=== PATIENT | female | born 1965 | race Caucasian/White ===

== ENCOUNTER 2022-11-17 11:05 | Outpatient (OUT) | payer OTHER, SELFPAY ==
--- NOTE | 2022-11-17 11:19 | XR_ITS ---
[address] [address] Patient Name: CANELO SINGH MRN: [id number] date: 1965 Sex: F Assigned Patient Location: RAD Current Patient Location: [facility] Accession/Order Number: [id number] Exam Date: 11/17/2022 11:28 Report Date: 11/17/2022 14:19 At the request of: JEFF JNO Procedure: XR hip BI w PEL 1V EXAM: XR hip BI w PEL 1V HISTORY: Unspecified Hip Pain M25.559 COMPARISON: None. TECHNIQUE: 3 views FINDINGS: There is no acute fracture or dislocation. There are no significant degenerative changes. The soft tissues are unremarkable. IMPRESSION: No acute fracture or dislocation. Electronically authenticated by: ANG ZAMBRANO Date: 11/17/2022 14:19
== END 2022-11-17 11:06 | disposition home or self-care (01) ==
LOC: RAD 11:09
PROVIDERS: PCP Family Medicine; Visit Provider Family Medicine
DX: M25.559 Pain in unspecified hip (principal)
CPT/HCPCS: 73523

== ENCOUNTER 2023-02-19 10:24 | Outpatient (OUT) | payer OTHER, SELFPAY ==
[2023-02-19 10:58] LABS: Basophils Absolute Auto 0.1 10^3/uL (0.0-0.1); Basophils Percent Auto 0.9 % (0.2-2.0); Eosinophils Absolute Auto 0.4 10^3/uL (0.0-0.7); Eosinophils Percent Auto 4.7 % (0.9-7.0); Hematocrit 39.8 % (36.0-48.0); Hemoglobin 12.9 g/dL (12.0-16.0); Immature Granulocytes Abs Auto 0.02 10^3/uL (0.00-0.03); Immature Granulocytes Pct Auto 0.3 % (0.0-0.5); Lymphocytes Percent Auto 26.3 % (20.5-60.0); Mean Corpuscular HGB Conc 32.4 g/dL (29.9-35.2); Mean Corpuscular Hemoglobin 30.4 pg (26.7-34.0); Mean Corpuscular Volume 93.9 fL (81.0-99.0); Mean Platelet Volume 9.7 fL (9.5-13.5); Monocytes Absolute Auto 0.5 10^3/uL (0.3-0.8); Neutrophils Absolute Auto 4.7 10^3/uL (1.4-6.5); Neutrophils Percent Auto 61.8 % (43.0-75.0); Platelet Count 319 10^3/uL (150-450); Red Blood Count 4.24 10^6/uL (4.20-5.40); Red Cell Distribution Width 12.3 % (11.0-15.0); White Blood Count 7.7 10^3/uL (4.0-11.0)
[2023-02-19 11:36] LABS: Estimated Average Glucose 146 mg/dL; Glycohemoglobin A1C 6.7 % (4.5-6.2)
[2023-02-19 12:07] LABS: Alanine Aminotransferase 27 U/L (14-59); Albumin Globulin Ratio 1.1; Albumin Level 3.7 g/dL (3.4-5.0); Alkaline Phosphatase 69 U/L (46-116); Anion Gap 10.2; Aspartate Amino Transferase 16 U/L (15-37); BUN Creatinine Ratio 24.1; Bilirubin Total 0.4 mg/dL (0.2-1.0); Calcium 9.3 mg/dL (8.5-10.1); Carbon Dioxide 30.5 mmol/L (21.0-32.0); Chloride 104 mmol/L (98-107); Chol HDL Ratio 2.4; Cholesterol 200 mg/dL (<=200); Estimated GFR (African America >60 (>=60); Estimated GFR (Non-African Ame >60 (>=60); Free T3 2.59 pg/mL (2.18-3.98); Globulin 3.3 g/dL; Glucose 120 mg/dL (74-106); HDL Cholesterol 84 mg/dL (40-60); Potassium 4.7 mmol/L (3.5-5.1); Sodium 140 mmol/L (136-145); Thyroid Stimulating Hormone 2.141 uIU/mL (0.358-3.740); Triglycerides 71 mg/dL (<=150); VLDL CHOLESTEROL 14.2 mg/dL
[2023-02-19 12:41] LABS: Free T4 1.44 ng/dL (0.76-1.46)
== END 2023-02-19 10:25 | disposition home or self-care (01) ==
LOC: LAB 10:27
PROVIDERS: PCP Family Medicine; Visit Provider Family Medicine
DX: E03.9 Hypothyroidism, unspecified (principal); E11.9 Type 2 diabetes mellitus without complications; E78.5 Hyperlipidemia, unspecified; Z79.899 Other long term (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; E55.9 Vitamin D deficiency, unspecified
CPT/HCPCS: 36415; 80053; 80061; 82306; 83036; 84439; 84443; 84481; 85025

== ENCOUNTER 2023-02-22 09:19 | Outpatient (OUT) | payer OTHER, SELFPAY ==
[2023-02-22 10:08] LABS: Erythrocyte Sedimentation Rate 4 mm/hr (<=30)
[2023-02-22 10:29] LABS: Creatine Kinase 69 U/L (26-192)
[2023-02-22 10:40] LABS: C Reactive Protein <0.2 mg/dL (<=1.0)
[2023-02-24 04:07] LABS: Antistreptolysin O Ab 34.8 IU/mL (0.0-200.0); Rheumatoid Factor (RF) 10.7 IU/mL (<14.0)
[2023-02-24 17:07] LABS: Anti-CCP Ab, IgG/IgA 0 units (0-19)
[2023-02-26 08:07] LABS: Antinuclear Antibodies, IFA Negative (.)
== END 2023-02-22 09:20 | disposition home or self-care (01) ==
LOC: LAB 09:20
PROVIDERS: PCP Family Medicine; Visit Provider Family Medicine
DX: R53.83 Other fatigue (principal); M25.50 Pain in unspecified joint; M79.10 Myalgia, unspecified site
CPT/HCPCS: 36415; 82550; 84550; 85652; 86038; 86060; 86140; 86200; 86430; 86431

== ENCOUNTER 2023-06-30 17:36 | Emergency (ER) | payer OTHER, SELFPAY ==
[2023-06-30] VITALS (31 sets, daily range): BP systolic 142–177; BP diastolic 77–113; PULSE 87–113; RESP 10–27; TEMP 36.7; O2SAT 95–96; BMI 45.9
--- NOTE | 2023-06-30 17:50 | XR_ITS ---
The [address] [address] Patient Name: CANELO SINGH MRN: [id number] date: 1965 Sex: F Assigned Patient Location: ER Current Patient Location: ER Accession/Order Number: [id number] Exam Date: 06/30/2023 18:06 Report Date: 06/30/2023 19:29 At the request of: MARCELL ASHLEY Procedure: XR chest 1V ONE-VIEW CHEST RADIOGRAPH, 06/30/2023 6:06 PM EST COMPARISON: Chest, 09/08/2022. CLINICAL HISTORY: sob Findings and impression: 1. Very minimal linear atelectasis or scarring in the right lung base. Lungs otherwise clear. 2. Normal heart size. 3. No acute osseous abnormality. Electronically authenticated by: Lloyd SANDRA Date: 06/30/2023 19:29
--- NOTE | 2023-06-30 17:50 | ECG_ITS ---
The [facility] Test Date: 2023-06-30 Pat Name: CANELO SINGH Department: Room: - Gender: Female Stave And Bolt Equalizer: : 1965 Requested By: JEFF JON Order Number: [id number] Reading MD: JULIANA RUSSO Measurements Intervals [place] Rate: 93 P: 58 [place]: 156 QRS: 52 QRSD: 76 T: 53 QT: 348 QTc: 398 Interpretive Statements 1100 Sinus rhythm 9110 normal ECG Compared to ECG 09/08/2022 15:15:49 No significant changes Electronically Signed On 07-01-2023 7:25:10 EST by JULIANA RUSSO
[2023-06-30 18:03] LABS: Glucometer 118 mg/dL (74-106)
[2023-06-30 18:11] LABS: Basophils Absolute Auto 0.1 10^3/uL (0.0-0.1); Basophils Percent Auto 0.9 % (0.2-2.0); Eosinophils Absolute Auto 0.6 10^3/uL (0.0-0.7); Eosinophils Percent Auto 6.2 % (0.9-7.0); Hematocrit 41.3 % (36.0-48.0); Hemoglobin 13.7 g/dL (12.0-16.0); Immature Granulocytes Abs Auto 0.03 10^3/uL (0.00-0.03); Immature Granulocytes Pct Auto 0.3 % (0.0-0.5); Lymphocytes Absolute Auto 2.6 10^3/uL (1.2-3.8); Lymphocytes Percent Auto 27.5 % (20.5-60.0); Mean Corpuscular HGB Conc 33.2 g/dL (29.9-35.2); Mean Corpuscular Hemoglobin 31.1 pg (26.7-34.0); Mean Corpuscular Volume 93.7 fL (81.0-99.0); Mean Platelet Volume 10.1 fL (9.5-13.5); Monocytes Absolute Auto 0.6 10^3/uL (0.3-0.8); Monocytes Percent Auto 5.9 % (1.7-12.0); Neutrophils Absolute Auto 5.7 10^3/uL (1.4-6.5); Neutrophils Percent Auto 59.2 % (43.0-75.0); Platelet Count 367 10^3/uL (150-450); Red Blood Count 4.41 10^6/uL (4.20-5.40); Red Cell Distribution Width 12.1 % (11.0-15.0); White Blood Count 9.6 10^3/uL (4.0-11.0)
[2023-06-30 18:29] LABS: Alanine Aminotransferase 24 U/L (14-59); Albumin Globulin Ratio 1.1; Albumin Level 3.9 g/dL (3.4-5.0); Alkaline Phosphatase 91 U/L (46-116); Anion Gap 14.2; Aspartate Amino Transferase 18 U/L (15-37); BUN Creatinine Ratio 34.2; Bilirubin Total 0.3 mg/dL (0.2-1.0); Calcium 9.6 mg/dL (8.5-10.1); Carbon Dioxide 28.9 mmol/L (21.0-32.0); Chloride 103 mmol/L (98-107); Estimated GFR (African America >60 (>=60); Estimated GFR (Non-African Ame >60 (>=60); Globulin 3.7 g/dL; Glucose 123 mg/dL (74-106); Potassium 4.1 mmol/L (3.5-5.1); Sodium 142 mmol/L (136-145); Total Protein 7.6 g/dL (6.4-8.2)
[2023-06-30 18:31] LABS: Troponin I High Sensitivity 4.9 pg/mL (4.0-51.3)
--- NOTE | 2023-06-30 18:39 | CT_ITS ---
[address] [address] Patient Name: CANELO SINGH MRN: [id number] date: 1965 Sex: F Assigned Patient Location: ER Current Patient Location: Accession/Order Number: [id number] Exam Date: 06/30/2023 19:15 Report Date: 06/30/2023 20:15 At the request of: MARCELL ASHLEY Procedure: CT angio head CTA HEAD/NECK. HISTORY: headache and pounding sound in the ear COMPARISON: None. TECHNIQUE: CT angiogram of the head and neck obtained after administration of 75 mL of nonionic intravenous contrast material, Isovue-300. Multiplanar and volume rendered 3-D reformats were created. NASCET criteria was used for evaluation of luminal stenosis. 3-D vascular images were constructed on a separate workstation. FINDINGS: THORACIC AORTA: Normal. There is a normal anatomy at the origin of the great vessels. RIGHT COMMON CAROTID ARTERY: No significant stenosis. RIGHT EXTERNAL CAROTID ARTERY: No significant stenosis. RIGHT INTERNAL CAROTID ARTERY: No significant stenosis. LEFT COMMON CAROTID ARTERY: No significant stenosis. LEFT EXTERNAL CAROTID ARTERY: No significant stenosis. LEFT INTERNAL CAROTID ARTERY: No significant stenosis. RIGHT VERTEBRAL ARTERY: No significant stenosis. LEFT VERTEBRAL ARTERY: No significant stenosis. [place] OF CAREY: The bilateral intracranial internal carotid arteries, anterior cerebral arteries, middle cerebral arteries and anterior and posterior communicating arteries are normal. POSTERIOR INTRACRANIAL CIRCULATION: The basilar artery and posterior cerebral arteries are patent, without stenosis or occlusion. DURAL SINUSES: Patent. No intracranial aneurysm measuring least 2 mm identified. No intracranial AVM. LUNG APICES: The lung apices are clear. SOFT TISSUES: The prevertebral soft tissues are normal. No soft tissue inflammation. OSSEOUS STRUCTURES: No acute osseous abnormality throughout the imaged axial skeleton and skull base. CT/CT angio head IMPRESSION: 1. No high-grade or hemodynamically flow-limiting stenosis of the major arteries of the head and neck. 2. No evidence of intracranial aneurysm. Electronically authenticated by: MAR TORRES Date: 06/30/2023 20:15
--- NOTE | 2023-06-30 18:40 | CT_ITS ---
[address] [address] Patient Name: CANELO SINGH MRN: [id number] date: 1965 Sex: F Assigned Patient Location: ER Current Patient Location: Accession/Order Number: [id number] Exam Date: 06/30/2023 19:15 Report Date: 06/30/2023 20:15 At the request of: MARCELL ASHLEY Procedure: CT angio neck CTA HEAD/NECK. HISTORY: headache and pounding sound in the ear COMPARISON: None. TECHNIQUE: CT angiogram of the head and neck obtained after administration of 75 mL of nonionic intravenous contrast material, Isovue-300. Multiplanar and volume rendered 3-D reformats were created. NASCET criteria was used for evaluation of luminal stenosis. 3-D vascular images were constructed on a separate workstation. FINDINGS: THORACIC AORTA: Normal. There is a normal anatomy at the origin of the great vessels. RIGHT COMMON CAROTID ARTERY: No significant stenosis. RIGHT EXTERNAL CAROTID ARTERY: No significant stenosis. RIGHT INTERNAL CAROTID ARTERY: No significant stenosis. LEFT COMMON CAROTID ARTERY: No significant stenosis. LEFT EXTERNAL CAROTID ARTERY: No significant stenosis. LEFT INTERNAL CAROTID ARTERY: No significant stenosis. RIGHT VERTEBRAL ARTERY: No significant stenosis. LEFT VERTEBRAL ARTERY: No significant stenosis. [place] OF CAREY: The bilateral intracranial internal carotid arteries, anterior cerebral arteries, middle cerebral arteries and anterior and posterior communicating arteries are normal. POSTERIOR INTRACRANIAL CIRCULATION: The basilar artery and posterior cerebral arteries are patent, without stenosis or occlusion. DURAL SINUSES: Patent. No intracranial aneurysm measuring least 2 mm identified. No intracranial AVM. LUNG APICES: The lung apices are clear. SOFT TISSUES: The prevertebral soft tissues are normal. No soft tissue inflammation. OSSEOUS STRUCTURES: No acute osseous abnormality throughout the imaged axial skeleton and skull base. CT/CT angio neck IMPRESSION: 1. No high-grade or hemodynamically flow-limiting stenosis of the major arteries of the head and neck. 2. No evidence of intracranial aneurysm. Electronically authenticated by: MAR TORRES Date: 06/30/2023 20:15
--- NOTE | 2023-06-30 18:45 | ED_ITS ---
HPI - General Adult General Chief complaint: Chest Pain Stated complaint: high bp, sob, cold and clammy Time Seen by Provider: 06/30/23 17:44 Source: patient Mode of arrival: walk-in History of Present Illness HPI narrative: The patient coming to the ER was few weeks history of generalized sense of shortness of breath in addition to a frontal headache associated with the right ear swishing noise like her heart pounding, she mentioned that she hear that all the time whenever she is grabbing something from the floor or moving. The patient denies any double vision nausea vomiting any chest pain at any time she also denies any cough or fever Related Data Home Medications Medication Instructions Recorded Confirmed cetirizine 10 mg tablet 10 mg PO Q12H 06/30/23 06/30/23 glimepiride 1 mg tablet mg 06/30/23 levothyroxine 175 mcg tablet 175 mcg PO DAILY 06/30/23 06/30/23 losartan 50 mg tablet 50 mg PO DAILY 06/30/23 06/30/23 metformin 500 mg tablet,extended 500 mg PO .dailiy 06/30/23 06/30/23 release 24 hr Allergies Allergy/AdvReac Type Severity Reaction Status Date / Time clarithromycin [From Biaxin] Allergy Mild Verified 06/30/23 17:40 gatifloxacin [From Tequin] Allergy Mild Verified 06/30/23 17:40 levaquin Allergy Mild Uncoded 06/30/23 17:40 Review of Systems ROS Status of ROS 10 or more systems reviewed and unremark able except as noted in history and below [facility] Social History Smoking status: Never smoker Exam Narrative Exam Narrative: Nurses notes and vital signs reviewed and patient is not hypoxic. General: Well-appearing and in no apparent distress. Skin: Warm, dry, no pallor noted. No rash. Head: Normocephalic, atraumatic. Neck: Supple, non-tender. Eye: Pupils are equal, round and EOMI. No scleral icterus. Ears, Nose, Mouth, and Throat: TM are clear, no nasal mucosal hypertrophy. Oral mucosa is moist, no posterior oropharynx erythema, uvula is mid-line Cardiovascular: Regular Rate and Rhythm without murmur, gallop or rub. Respiratory: No accessory muscle use or respiratory distress. Lungs are clear to auscultation, no wheezing, rales or rhonchi Chest Wall: no tenderness Back: No midline thoracic or lumbar vertebral tenderness. No CVA tenderness Musculoskeletal: normal ROM, no calf or popliteal tenderness, no lower extremity edema/swelling GI: Abdomen is soft, non-distended. Normal bowel sounds. No masses appreciated. No tenderness to palpation. No rebound, guarding, or rigidity noted. Neurological: A&O x4. No cranial nerve dysfunction observed. No truncal ataxia. Moves all extremities. Sensation intact. Psychiatric: Cooperative and interactive. Normal mood and affect. Constitutional Vital Signs, click to edit/add: Last Vital Signs Temp 98.0 F 06/30/23 17:40 Pulse 113 H 06/30/23 17:40 Resp 18 06/30/23 17:40 BP 177/113 H 06/30/23 17:40 Pulse Ox 96 06/30/23 17:40 O2 Del Method Room Air 06/30/23 17:40 Course Vital Signs Vital signs: Vital Signs Temperature 98.0 F 06/30/23 17:40 Pulse Rate 113 H 06/30/23 17:40 Respiratory Rate 18 06/30/23 17:40 Blood Pressure 177/113 H 06/30/23 17:40 Pulse Oximetry 96 06/30/23 17:40 Oxygen Delivery Method Room Air 06/30/23 17:40 Temperature 98.0 F 06/30/23 17:40 Pulse Rate 113 H 06/30/23 17:40 Respiratory Rate 18 06/30/23 17:40 Blood Pressure 177/113 H 06/30/23 17:40 Pulse Oximetry 96 06/30/23 17:40 Oxygen Delivery Method Room Air 06/30/23 17:40 Medical Decision Making [facility] Narrative Medical decision making narrative: The patient right now had a CBC and chemistry showing no acute significant pathology The patient EKG showing sinus rhythm with no acute significant pathology The patient just was started on losartan for her blood pressure yesterday and we will continue that for now CT angio head and neck obtained to rule out any aneurysm because of the patient pulsating sound that she feels in her right ear. The patient care will be transferred to Dr. Weaver with the plan to treat her right ear as possible infection in addition to stopping her metformin as she is going to obtain contrast for the next 48 hours or unless she follow-up with her primary care and repeat the kidney function Lab Data Labs: Lab Results 06/30/23 06/30/23 Range/Units 17:50 17:51 WBC 9.6 (4.0-11.0) 10^3/uL RBC 4.41 (4.20-5.40) 10^6/uL Hgb 13.7 (12.0-16.0) g/dL Hct 41.3 (36.0-48.0) % MCV 93.7 (81.0-99.0) fL MCH 31.1 (26.7-34.0) pg MCHC 33.2 (29.9-35.2) g/dL RDW 12.1 (11.0-15.0) % Plt Count 367 (150-450) 10^3/uL MPV 10.1 (9.5-13.5) fL Neut % (Auto) 59.2 (43.0-75.0) % Lymph % (Auto) 27.5 (20.5-60.0) % [place] % (Auto) 5.9 (1.7-12.0) % Eos % (Auto) 6.2 (0.9-7.0) % Baso % (Auto) 0.9 (0.2-2.0) % Neut # (Auto) 5.7 (1.4-6.5) 10^3/uL Lymph # (Auto) 2.6 (1.2-3.8) 10^3/uL Frederick # (Auto) 0.6 (0.3-0.8) 10^3/uL Eos # (Auto) 0.6 (0.0-0.7) 10^3/uL Baso # (Auto) 0.1 (0.0-0.1) 10^3/uL Abs Immat Gran (auto) 0.03 (0.00-0.03) 10^3/uL Imm/Tot Granulo (auto) 0.3 (0.0-0.5) % Sodium 142 (136-145) mmol/L Potassium 4.1 (3.5-5.1) mmol/L Chloride 103 (98-107) mmol/L Carbon Dioxide 28.9 (21.0-32.0) mmol/L Anion Gap 14.2 BUN 26.0 H (7.0-18.0) mg/dL Creatinine 0.76 (0.55-1.02) mg/dL Est GFR ( Amer) >60 (>=60) Est GFR (Non-Af Amer) >60 (>=60) BUN/Creatinine Ratio 34.2 Glucose 123 H (74-106) mg/dL Calcium 9.6 (8.5-10.1) mg/dL Total Bilirubin 0.3 (0.2-1.0) mg/dL AST 18 (15-37) U/L ALT 24 (14-59) U/L Alkaline Phosphatase 91 (46-116) U/L Troponin I High Sens 4.9 (4.0-51.3) pg/mL Total Protein 7.6 (6.4-8.2) g/dL Albumin 3.9 (3.4-5.0) g/dL Globulin 3.7 g/dL Albumin/Globulin Ratio 1.1 POC Glucose 118 H (74-106) mg/dL Discharge Plan Discharge Patient Disposition: Still a Patient
[2023-06-30] MEDS: KETOROLAC TROMETHAMINE 30 MG/ML VIAL 15 MG IVP (19:23)
[2023-06-30] MEDS: AMOXICILLIN/POTASSIUM CLAV 1 TAB TABLET PO (21:05)
== END 2023-06-30 21:17 | disposition home or self-care (01) ==
PROVIDERS: Emergency Medicine; Emergency Provider Internal Medicine; PCP Family Medicine
DX: H66.91 Otitis media, unspecified, right ear (principal); R51.9 Headache, unspecified; Z79.899 Other long term (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; Z79.84 Long term (current) use of oral hypoglycemic drugs; Z79.890 Hormone replacement therapy
CPT/HCPCS: 36415; 70496; 70498; 71045; 80053; 82948; 84484; 85025; 93005; 96374; 99285; J1885; Q9967

== ENCOUNTER 2023-08-23 12:22 | Outpatient (OUT) | payer OTHER, SELFPAY ==
[2023-08-23 13:03] LABS: Basophils Absolute Auto 0.1 10^3/uL (0.0-0.1); Basophils Percent Auto 1.4 % (0.2-2.0); Eosinophils Absolute Auto 0.4 10^3/uL (0.0-0.7); Eosinophils Percent Auto 5.2 % (0.9-7.0); Hematocrit 41.2 % (36.0-48.0); Hemoglobin 13.6 g/dL (12.0-16.0); Immature Granulocytes Abs Auto 0.02 10^3/uL (0.00-0.03); Immature Granulocytes Pct Auto 0.3 % (0.0-0.5); Lymphocytes Absolute Auto 2.2 10^3/uL (1.2-3.8); Lymphocytes Percent Auto 29.7 % (20.5-60.0); Mean Corpuscular Hemoglobin 31.3 pg (26.7-34.0); Mean Corpuscular Volume 94.7 fL (81.0-99.0); Mean Platelet Volume 9.7 fL (9.5-13.5); Monocytes Absolute Auto 0.5 10^3/uL (0.3-0.8); Monocytes Percent Auto 6.4 % (1.7-12.0); Neutrophils Absolute Auto 4.2 10^3/uL (1.4-6.5); Platelet Count 347 10^3/uL (150-450); Red Blood Count 4.35 10^6/uL (4.20-5.40); Red Cell Distribution Width 12.1 % (11.0-15.0); White Blood Count 7.4 10^3/uL (4.0-11.0)
[2023-08-23 13:23] LABS: Estimated Average Glucose 143 mg/dL; Glycohemoglobin A1C 6.6 % (4.5-6.2)
[2023-08-23 13:36] LABS: Alanine Aminotransferase 25 U/L (14-59); Albumin Globulin Ratio 1.2; Albumin Level 3.8 g/dL (3.4-5.0); Alkaline Phosphatase 72 U/L (46-116); Anion Gap 14.5; Aspartate Amino Transferase 14 U/L (15-37); BUN Creatinine Ratio 24.7; Bilirubin Total 0.5 mg/dL (0.2-1.0); Calcium 9.1 mg/dL (8.5-10.1); Carbon Dioxide 28.7 mmol/L (21.0-32.0); Chloride 103 mmol/L (98-107); Chol HDL Ratio 2.9; Cholesterol 193 mg/dL (<=200); Estimated GFR (African America >60 (>=60); Estimated GFR (Non-African Ame >60 (>=60); Free T3 1.94 pg/mL (2.18-3.98); Globulin 3.3 g/dL; Glucose 117 mg/dL (74-106); HDL Cholesterol 67 mg/dL (40-60); Potassium 4.2 mmol/L (3.5-5.1); Sodium 142 mmol/L (136-145); Thyroid Stimulating Hormone 18.751 uIU/mL (0.358-3.740); Total Protein 7.1 g/dL (6.4-8.2); Triglycerides 125 mg/dL (<=150)
[2023-08-23 13:59] LABS: Bilirubin Urine NEGATIVE (NEGATIVE); Blood Urine NEGATIVE (NEGATIVE); Clarity Urine CLEAR (CLEAR); Color Urine YELLOW (YELLOW); Glucose Urine UA NEGATIVE (NEGATIVE); Ketones Urine NEGATIVE (NEGATIVE); Leukocyte Esterase Urine NEGATIVE (NEGATIVE); Nitrite Urine NEGATIVE (NEGATIVE); Protein Urine NEGATIVE (NEG/TRACE); Specific Gravity Urine >=1.030 (1.005-1.025); Urobilinogen Urine 0.2 EU/dL (0.2-1.0); pH Urine 5.5 (5.0-9.0)
[2023-08-23 14:05] LABS: Free T4 1.11 ng/dL (0.76-1.46)
[2023-08-23 14:45] LABS: Bacteria Urine NONE SEEN #/HPF (NONE SEEN); Cast Seen? NONE SEEN #/LPF (NONE SEEN); Crystals Seen? None Seen #/HPF (None Seen); Mucus Urine MODERATE (NONE SEEN); RBC Urine 0-2 #/HPF (0-2); Squamous Epithelial Cell Urine RARE #/LPF (NONE/RARE); WBC Urine 0-2 #/HPF (NONE SEEN)
== END 2023-08-23 12:23 | disposition home or self-care (01) ==
LOC: LAB 12:25
PROVIDERS: PCP Family Medicine; Visit Provider Family Medicine
DX: E03.9 Hypothyroidism, unspecified (principal); E11.9 Type 2 diabetes mellitus without complications; Z79.899 Other long term (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; E78.5 Hyperlipidemia, unspecified; E55.9 Vitamin D deficiency, unspecified; R35.1 Nocturia
CPT/HCPCS: 36415; 80053; 80061; 81001; 82306; 83036; 84439; 84443; 84481; 85025; 87086

== ENCOUNTER 2023-09-04 12:44 | Outpatient (OUT) | payer OTHER, SELFPAY ==
--- NOTE | 2023-09-04 13:32 | CT_ITS ---
The [address] [address] Patient Name: CANELO SINGH MRN: [id number] date: 1965 Sex: F Assigned Patient Location: CT Current Patient Location: CT Accession/Order Number: [id number] Exam Date: 09/04/2023 13:20 Report Date: 09/04/2023 16:52 At the request of: JENNIE JIANG Procedure: CT int auditory canals w con EXAM: CT int auditory canals w con HISTORY: Pulsatile Tinnitus Of Right Ear H93.A1, Cholesteatoma Ear a COMPARISON: CT brain 08/07/2022 TECHNIQUE: Axial helical CT images of the temporal bones were obtained without contrast. In addition the sagittal and coronal reformats were also obtained. Dose reduction techniques were achieved by using automated exposure control and/or adjustment of mA and/or kV according to patient size and/or use of iterative reconstruction technique. FINDINGS: The study demonstrates normal appearance of the external auditory canals, tympanic membranes, middle ear ossicles, the scutum, the Prussak's space and middle ear cavity. The internal ear structures are also normal in appearance on both sides. There is no suggestion of cochlear or fenestral otosclerosis or dehiscence of the superior semicircular canal. The internal auditory canals are normal and symmetric in size and configuration. The facial nerves demonstrate normal course and caliber. There is mild opacification of right-sided mastoid air cells. The left-sided mastoid air cells are clear. The temporomandibular joints (TMJ) are unremarkable. Visualized brain parenchyma, sinuses, and orbits are unremarkable. CT/CT int auditory canals w con IMPRESSION: Mild chronic right mastoid effusion. Otherwise, unremarkable temporal bone CT. Electronically authenticated by: DOYLE DELGADOU Date: 09/04/2023 16:52
== END 2023-09-04 12:45 | disposition home or self-care (01) ==
LOC: CT 12:44
PROVIDERS: PCP Family Medicine; Visit Provider Otolaryngology
DX: H93.A1 Pulsatile tinnitus, right ear (principal); H71.01 Cholesteatoma of attic, right ear
CPT/HCPCS: 70481; Q9967

== ENCOUNTER 2023-10-09 12:38 | Outpatient (OUT) | payer OTHER, SELFPAY ==
--- NOTE | 2023-10-09 12:44 | MR_ITS ---
The [address] [address] Patient Name: CANELO SINGH MRN: [id number] date: 1965 Sex: F Assigned Patient Location: MRI Current Patient Location: MRI Accession/Order Number: [id number] Exam Date: 10/09/2023 12:50 Report Date: 10/09/2023 21:15 At the request of: JENNIE JIANG Procedure: MR head/brain wo/w con MR head/brain wo/w con, 10/09/2023 12:50 PM EDT INDICATION: Asymmetric Sensorineural Hearing Loss H90.3 right ear tinnitus COMPARISON: Prior CT of the in temporal bone dated 09/04/2023 TECHNIQUE: Multiplanar, multisequential MRI images of brain were obtained without and with injection of contrast. FINDINGS: The cerebral sulci as well as ventricular system are appropriate for age. There is no restricted diffusion. Few hyperintensities on T2 and FLAIR images in the soto radiata and centrum semiovale with sparing of U fibers are nonspecific, statistically most likely consistent with microvascular ischemic changes. There is no intracranial mass, mass effect, midline shift, intra or extra-axial fluid collection or large hemorrhage. No abnormality of the semicircular canal is or cochlea vestibular nerves is noted. No abnormal enhancing lesion is noted. Normal flow-void in the intracranial vessels is noted. Nonspecific fluid within the right mastoid air cells is noted. The visualized portions of orbits, left mastoid air cells as well as paranasal sinuses are unremarkable. MR/MR head/brain wo/w con IMPRESSION: No abnormality of the cochlea vestibular nerves or semicircular canals is noted. Nonspecific fluid within the right mastoid air cells. Electronically authenticated by: CHRISTIANO SETHI Date: 10/09/2023 21:15
== END 2023-10-09 12:39 | disposition home or self-care (01) ==
LOC: MRI 12:38
PROVIDERS: PCP Family Medicine; Visit Provider Otolaryngology
DX: H90.3 Sensorineural hearing loss, bilateral (principal); H92.02 Otalgia, left ear; H93.13 Tinnitus, bilateral
CPT/HCPCS: 70553; A9575

== ENCOUNTER 2023-10-25 10:55 | Outpatient (OUT) | payer OTHER, SELFPAY ==
[2023-10-25 14:54] LABS: Anion Gap 11.7; BUN Creatinine Ratio 20.5; Calcium 9.3 mg/dL (8.5-10.1); Carbon Dioxide 29.7 mmol/L (21.0-32.0); Chloride 103 mmol/L (98-107); Estimated GFR (African America >60 (>=60); Estimated GFR (Non-African Ame >60 (>=60); Glucose 121 mg/dL (74-106); Potassium 4.4 mmol/L (3.5-5.1); Sodium 140 mmol/L (136-145); Thyroid Stimulating Hormone 5.994 uIU/mL (0.358-3.740)
[2023-10-25 15:15] LABS: Free T4 1.33 ng/dL (0.76-1.46)
[2023-10-26 04:08] LABS: Triiodothyronine (T3) 100 ng/dL (71-180)
== END 2023-10-25 10:56 | disposition home or self-care (01) ==
PROVIDERS: PCP Family Medicine; Visit Provider Family Medicine
DX: E03.9 Hypothyroidism, unspecified (principal); Z79.899 Other long term (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
CPT/HCPCS: 36415; 80048; 84439; 84443; 84480

== ENCOUNTER 2024-03-20 09:49 | Outpatient (OUT) | payer OTHER, SELFPAY ==
--- OUTSIDE RECORDS SUMMARY | 2024-03-20 10:00 | XMS_ITS | CCD ---
Author Organization [facility] CliniSypr Care Team Providers Care Chemistry Account Manager Name Role Phone JEFF JON Primary Care Unavailable ELLE DODD Referring Unavailable Jeff Jon DO Primary Care Provider Carlos Terrazas Unavailable Jeff Jon Unavailable Vandana Jordan Unavailable Carl Valdivia Unavailable Lorena Rico Unavailable Jeff Jon DO Primary Care Provider JEFF JON Primary Care Unavailable LEENA SEYMOUR Attending Unavailable JEFF JON Primary Care Unavailable SKUGOR, ASAD Referring Unavailable DONTRELL, JEFF COLEMAN Primary Care Unavailable ANILA JIMENEZ Attending Unavailable DANG, ASAD Attending Unavailable JEFF JON Referring Unavailable JEFF JON Primary Care Unavailable JEFF JON Primary Care Unavailable SKUGOR, ASAD Referring Unavailable SKUGWHIT, ASAD Attending Unavailable JEFF JON Primary Care Unavailable SKUGOR, ASAD Referring Unavailable Lacie Manuel Unavailable DONTRELL, DR AGUILAR Consulting Unavailable DONTRELL, DR AGUILAR Attending Unavailable DONTRELL, DR AGUILAR Admitting Unavailable DONTRELL, DR AGUILAR Primary Care Unavailable DONTRELL, DR AGUILAR Consulting Unavailable DONTRELL, DR AGUILAR Primary Care Unavailable DONTRELL, DR AGUILAR Attending Unavailable DONTRELL, DR AGUILAR Admitting Unavailable LAWSON, DR JEFF Colvin Consulting Unavailable DONTRELL, DR AGUILAR Primary Care Unavailable DONTRELL, DR AGUILAR Attending Unavailable DONTRELL, DR AGUILAR Admitting Unavailable ANASTASIA WADE Consulting Unavailable DONTRELL, DR AGUILAR Primary Care Unavailable HILARIA ., DR HERZOG Attending Unavailable HILARIA ., DR HERZOG Admitting Unavailable DIAB ., MARCELL Admitting Unavailable TROTTEliel, ACOSTAOLAMO Consulting Unavailable DONTRELL, DR AGUILAR Primary Care Unavailable DIAB ., MARCELL Attending Unavailable ANASTASIA WADE Consulting Unavailable DIAB ., MARCELL Consulting Unavailable GIRVIN, DR AGUILAR Primary Care Unavailable JEROD ., LAURENCE Attending Unavailable JEROD ., LAURENCE Admitting Unavailable WEST, DR JEFF Colvin Consulting Unavailable JEROD ., LAURENCE Consulting Unavailable GIRVIN, DR AGUILAR Primary Care Unavailable TIMMIS, JENNIE Consulting Unavailable TIMMIS, JENNIE Attending Unavailable TIMMIS, JENNIE Admitting Unavailable LAYTON, STEPHENIE Consulting Unavailable NEFCY, DURGA Consulting Unavailable GIRVIN, DR AGUILAR Primary Care Unavailable TIMMIS, JENNIE Consulting Unavailable TIMMIS, JENNIE Attending Unavailable TIMMIS, JENNIE Admitting Unavailable GIRVIN, DR AGUILAR Consulting Unavailable GIRVIN, DR AGUILAR Attending Unavailable GIRCASSI, DR AGUILAR Primary Care Unavailable DONTRELL, DR AGUILAR Admitting Unavailable Jeff Jon Unavailable Prieto, Dr. Ren Referring Unavaila ble Gircassi, Dr. Jeff Coleman Primary Care Unavaila ble Prieto, Dr. Ren Attending Unavaila ble Gircassi, Dr. Jeff Coleman Primary Care Unavaila ble Girvin, Dr. Jeff Coleman Attending Unavaila ble Gircassi, Dr. Jeff Coleman Referring Unavaila ble Gircassi, Dr. Jeff Coleman Attending Unavaila Jeff Lopez Primary Care Physician DO Casper Nguyen Admitting Unavailabl e Casper Nguyen Attending Unavailable Sharon Wong D Referring Unavailable TIMMIS, JENNIE H Attending Unavailable JEFF JON Referring Unavailable TIMMIS, JENNIE H Attending Unavailable TRACY, SHARON D Referring Unavailable TRACY, SHARON D Attending Unavailable SVETLANA SINGH Attending Unavailable TIMMIS, EJNNIE H Attending Unavailable HILLS, SHARON D Referring Unavailable HILLS, SHARON D Attending Unavailable TIMMIS, JENNIE H Attending Unavailable DO Jeff Jon Primary Care Provider MD Logan Brown Attending Provider Logan Brown Admitting Unavailable Logan Brown Attending Unavailable Jeff Jon Primary Care Unavailable Jeff Jon DO Primary Care Unavailab le DeVaul STADIUM MANAGER-SHEEP STICKER, Cass Zavaleta Attending Unav ailable Jeff Jon DO Primary Care Unavailab le DeVaul STADIUM MANAGER-SHEEP STICKER, Cass Zavaleta Attending Jeff Reyes DO Primary Care Onelia Alanis, Cass Zavaleta Attending Jeff Reyes DO Primary Care Unavailab Brittney YA, Librado Kumar Attending [facility] ble Allergies Allergy Classification Reported Allergen(s) Allergy Type Date of Onset Reaction(s) Facility Macrolides (antibiotic) (1 source) Clarithromycin Drug Allergy 12-19-19 24 diarrhea [facility] Quinolones (antibiotic) (2 sources) levoFLOXacin Drug Allergy 12-19-19 Abdominal Pain, itches/pain, Abdominal Pain [facility] (6 sources) Cefuroxime; Translations: [CEFUROXIME AXETIL] Drug Allergy 05-16-20 07 Itching [facility] (20 sources) Clarithromycin; Translations: [CLARITHROMYCIN] Drug Allergy 05-16-20 07 Itching [facility] (14 sources) Fluconazole; Translations: [FLUCONAZOLE] Drug Allergy 06-16-19 Itching [facility] (16 sources) gatifloxacin; Translations: [GATIFLOXACIN] Drug Allergy 05-16-20 07 Itching [facility] (17 sources) levoFLOXacin; Translations: [LEVOFLOXACIN] Drug Allergy 05-16-20 07 Itching [facility] (16 sources) LORazepam; Translations: [LORAZEPAM] Drug Allergy 06-16-19 Other: See Comments [facility] (20 sources) metFORMIN; Translations: [METFORMIN] Drug Allergy 06-16-19 Other: See Comments [facility] (20 sources) Fluconazole Drug Allergy itching [employer] [facility] [employer] Other (20 sources) gatifloxacin; Translations: [Tequin] Drug Allergy 05-17-20 13 Unknown [facility] (20 sources) levoFLOXacin; Translations: [Levaquin] Drug Allergy 05-17-20 13 itches/pain [facility] (20 sources) LORazepam Drug Allergy made wired /unable to sleep [facility] [employer] Other (3 sources) metFORMIN Drug Allergy headaches [facility] [employer] Other (2 sources) Clarithromycin; Translations: [Biaxin] Drug Allergy 09-05-19 16 [facility] (1 source) Pentamidine Drug Allergy [facility] (2 sources) Percocet Tablets; Translations: [Percocet Tablets] Propensity to adverse reactions to drug nausea and vomiting [facility] (2 sources) Vicodin Tablets; Translations: [Vicodin Tablets] Propensity to adverse reactions to drug nausea and vomiting [facility] (1 source) Clarithromycin Drug Allergy 10-29-19 [facility] (1 source) gatifloxacin Drug Allergy 10-29-19 [facility] (1 source) levoFLOXacin Drug Allergy 10-29-19 [facility] Rep[facility] Medications Current Medications Medication Drug Class(es) Dates Sig (Normalized) Sig (Original) Advair Diskus 250-50 MCG/DOSE (20 sources) take 1 puff(s) by inhalation every twelve hours Advair Diskus 250-50 MCG/DOSE 1 puff Inhalation every 12 hrs for 90 day(s) Active take 1 puff(s) by in halation every twelve hours Advair Diskus 250-50 MCG/DOSE 1 puff Inhalation every 12 hrs Active take 1 puff(s) by in halation every twelve hours Advair Diskus 250-50 MCG/DOSE 1 puff Inhalation every 12 hrs for 90 days Active albuterol 0.83 mg/ml inhalation solution (20 sources) beta2-Adrenergic Agonist Start: 08-28-2023 take 3 mL by inhalation every six hours as needed Albuterol Sulfate Active 2.5 MG INHALATION Every 6 hours August 28, 2023 12:00am 3 ml as needed Inhalation every 6 hrs; Note: Source Status: Continueprn; Provider: Jacky Carrillo Start: 08-28-2023 Albuterol Sulf ate (Proair Hfa) 90 mcg/actuation HFA aerosol inhaler Active INHALATION August 28, 2023 12:00am [employer] inhalations Inhalation q4 hrs prn; Note: Source Status: Continueprn; Provider: Dontrell Reeder Start: 12-06-2021 Albuterol Sulf ate (2.5 MG/3ML) 0.083% 3 ml as needed Inhalation every 6 hrs prn Nov, Active Start: 12-06-2021 Albuterol Sulf ate (2.5 MG/3ML) 0.083% 3 ml as needed Inhalation every 6 hrs prn Nov, Active Start: 09-16-2021 take 2 puff(s) by in halation every four hours as needed Albuterol Sulfate HFA 108 (90 Base) MCG/ACT 2 puffs as needed Inhalation every 4 hrs for 30 day(s) Aug, Active Start: 10-24-2016 ProAir HFA 108 (90 Base) MCG/ACT 2 inhalations Inhalation q4 hrs prn prn Oct, Active amitriptyline hydrochloride 25 mg oral tablet (1 source) Tricyclic Antidepressant Start: 05-10-2023 End: 08-08-2023 take 1 tablet by mouth once daily at bedtime amitriptyline 25 mg Tab 25 mg = 1 tab(s), Oral, Once a day (at bedtime), X 30 day(s), # 30 tab(s), Refills(s) 2, Pharmacy: [facility]/pharmacy #[id number], 166, cm, 05/10/23 14:36:00 EST, Height/Length Dosing, 123.7, kg, 05/10/23 14:36:00 EST, Weight Dosing Start Date: 05/10/23 Stop Date: 08/08/23 Status: Ordered amLODIPine 5 mg oral tablet (1 source) Dihydropyridine Calcium Channel Vicenta Start: 06-29-2023 take 1 tablet by mouth every twenty-four hours amLODIPine Besylate 5 MG 1 tablet Orally Once a day for 30 days Jun, Active amoxicillin 875 mg / clavulanate 125 mg oral tablet (10 sources) Penicillin-class Antibacterial Start: 01-08-2024 take 1 tablet by mouth twice daily at mealtime Amoxicillin-Pot Clavulanate Active 1 TAB PO Twice daily 09 03January 08, 2024 12:00am with food Start: 10-24-2022 take 1 tablet by barbara th every twelve hours Amoxicillin-Pot Clavulanate 875-125 MG 1 tablet Orally every 12 hrs for 10 day(s) Oct, Active Start: 04-03-2022 take 1 tablet by barbara th twice daily at mealtime Amoxicillin-Pot Clavulanate 875-125 MG 1 tablet Orally bid with food Mar, Active Start: 10-20-2021 take 1 tablet by barbara th twice daily at mealtime Amoxicillin-Pot Clavulanate 875-125 MG 1 tablet Orally two times a day with food for 10 day(s) Oct, Active Start: 08-06-2019 take 1 tablet by barbara th twice daily at mealtime Amoxicillin-Pot Clavulanate 875-125 MG 1 tablet Orally bid with food for 10 day(s) Jul, Active betamethasone 0.5 mg/ml / clotrimazole 10 mg/ml topical cream (20 sources) Azole Antifungal, Corticosteroid Start: 08-28-2023 Clotrimazole-Betamethasone Active 1 APPLIC TOPICAL Twice daily August 28, 2023 12:00am [employer] application Externally Twice a day; Note: Source Status: Takingprn; Refills: 3; Qty: 135 gm; Provider: Dontrell Reeder Start: 04-10-2019 Clotrimazole-B etamethasone 1-0.05 % 1 application Externally Twice a day for 90 days prn Mar, Active Centrum (1 source) Start: 02-22-2011 Centrum Oral, Daily, Refill(s) 0 Start Date: 02/22/11 Status: Ordered cetirizine hydrochloride 10 mg oral tablet (20 sources) Histamine-1 Receptor Antagonist Start: 05-16-2007 take 1 tablet by mouth once daily Cetirizine (Zyrtec) 10 mg Tablet Active 10 MG PO Daily September 14, 2017 12:00am Cetirizine HCl 1 0 mg TAKE 1 TABLET DAILY for 90 days Active take 1 tablet by barbara th every twelve hours Cetirizine HCl 10 MG 1 tablet Orally Twi ce a day Active Comment on above: Take one(1) tablet d aily. cholecalciferol 0.05 mg oral tablet (20 sources) Vitamin D Start: 08-28-19 End: 08-28-19 24 take 1 tablet by mouth once daily Cholecalciferol (Vitamin D3) Active 2000 UNIT PO Daily August 28, 2023 10:48am [employer] tablet Orally Once a day; Note: Source Status: Taking; Provider: Dontrell Reeder Start: 02-22-2023 take 1 tablet by barbara th every twenty-four hours Vitamin D3 50 MCG (2000 UT) 1 tablet Orally Once a day Feb, Active Start: 04-11-2022 Vitamin D3 125 MCG (5000 UT) as directed Orally once weekly Mar, Active Start: 01-04-2021 take 25 ug by mouth once daily Vitamin D 25 MCG (1000 UT) 5000 units Orally Once a day Dec, Active Start: 01-04-2021 doxycycline hyclate 100 mg oral capsule (4 sources) Tetracycline-class Drug take 1 capsule by mouth every twelve hours Doxycycline Hyclate 100 MG 1 capsule Orally every 12 hrs for 10 day(s) Active esomeprazole 40 mg delayed release oral capsule (20 sources) Proton Pump Inhibitor Start: 009 take 1 capsule by mouth once daily Esomeprazole Magnesium (Nexium) 40 mg Capsule,Delayed Release(Dr/Ec) Active 40 MG PO Daily September 14, 2017 12:00am Comment on above: Take one(1) capsule daily. estrogens, conjugated (jail) 0.45 mg oral tablet (1 source) Estrogen Start: 011 take 1 tablet by mouth once daily Premarin 0.45 mg Tab 0.45 mg = 1 tab(s), Oral, Daily, tab(s), Refills(s) 0 Start Date: 02/22/11 Status: Ordered fluticasone propionate 0.05 mg/actuat metered dose nasal spray (20 sources) Corticosteroid Start: 019 take 1 spray(s) nasal route once daily Fluticasone Propionate 50 MCG/ACT 1 spray in each nostril Nasally Once a day Apr, Active Start: 05-12-2019 take 1 spray(s) nasa l route once daily Fluticasone Propionate 50 MCG/ACT 1 spray in each nostril Nasally Once a day Apr, Active Start: 05-12-2019 Fluticasone Propion-Salmeterol (20 sources) Corticosteroid, beta2-Adrenergic Agonist Start: 10-29-2023 Fluticasone Propion-Salmeterol (Advair Diskus) 250-50 mcg/dose blister with device Active 1 INH INHALATION Q12H 3 October 29, 2023 1:18pm Start: 09-14-2017 End: 10-29-2023 Fluticasone Propion-Salmeter ol (Advair Diskus) 250-50 mcg/dose Blister With Device Discontinued 1 INH INHALATION Q12H September 14, 2017 12:00am October 29, 2023 1:20pm Start: 09-14-2017 Fluticasone Pr opion-Salmeterol (Advair Diskus) 250-50 mcg/dose Blister With Device Active 1 INH INHALATION Q12H September 14, 2017 12:00am Start: 02-22-2011 take 1 puff(s) by in halation twice daily Advair 250 mcg-50 mcg Powder 1 puff(s), Inhalation, BID, EA, Refill(s) 0 Start Date: 02/22/11 Status: Ordered Start: 05-16-2007 fluticasone/sa lmeterol(ADVAIR DISKUS 250 MCG-50 MCG/DOSE FOR INHALATION) Indications: Myalgia and myositis, unspecified Take one(1) inhalation twice daily; rinse and gargle mouth with water after each use. 0 05/16/2007 Active take 1 puff(s) by in halation every twelve hours Advair Diskus 250-50 MCG/ACT 1 puff Inhalation every 12 hrs Active Comment on above: Take one(1) inhalati on twice daily; rinse and gargle mouth with water after each use. hydroCHLOROthiazide 25 mg / triamterene 37.5 mg oral capsule (9 sources) Potassium-sparing Diuretic, Thiazide Diuretic Start: 09-26-19 take 1 capsule by mouth once daily in the morning Triamterene-Hydr ochlorothiazid Active 1 CAP PO Every morning September 26, 2023 12:00am losartan potassium 50 mg oral tablet (20 sources) Angiotensin 2 Receptor Vicenta Start: 12-05-19 24 take 50 mg by mouth once daily Losartan Active 50 MG PO Daily December 05, 2023 12:00am Start: 08-28-2023 End: 09-26-2023 take 1 tablet by mouth once daily Losartan Discontinued 50 MG PO Daily August 28, 2023 12:00am August 28, 2023 11:13am [employer] tablet Orally Once a day; Note: Source Status: Taking; Refills: 3; Qty: 90 Tablet; Provider: Kg Reynolds Start: 05-10-2023 losartan Refil ls(s) 0 Start Date: 05/10/23 Status: Ordered Start: 10-20-2021 take 1 tablet by barbara th every twenty-four hours Losartan Potassium 25 MG 1 tablet Orally Once a day for 30 days Oct, Active take 1 tablet by barbara th every twenty-four hours Losartan Potassium 50 MG 1 tablet Orally Once a day for 90 days Active meloxicam (20 sources) Nonsteroidal Anti-inflammatory Drug Start: 01-14-2024 Meloxicam Active 0 .ROUTE .COMPLEX 90 January 14, 2024 10:16am TAKE 1 TABLET DAILY Start: 08-28-2023 End: 01-14-2024 take 1 tablet by mouth once daily Meloxicam Discontinued 15 MG PO Daily August 28, 2023 12:00am January 14, 2024 10:17am TAKE 1 TABLET DAILY; Refills: 0; Provider: Dontrell Reeder Meloxicam 15 mg TAKE 1 TABLET DAILY for 90 days Active metFORMIN (20 sources) Biguanide Start: 01-14-2024 Metformin Acti ve 0 .ROUTE .COMPLEX 360 January 14, 2024 10:41am TAKE 2 TABLETS TWICE A DAY WITH MEALS Start: 01-14-2024 End: 01-14-2024 take 2 tablets by mouth twice daily at mealtime Metformin Discontinued 500 MG PO .COMPLEX January 14, 2024 10:36am January 14, 2024 10:42am 500 mg orally take 2 (500 mg) tabs twice a day with meals; Start: 10-29-2023 End: 01-14-2024 take 500 mg by mouth once daily Metformin Discontinued 500 MG PO Daily October 29, 2023 2:48pm January 14, 2024 10:37am Start: 05-10-2023 metformin Refi lls(s) 0 Start Date: 05/10/23 Status: Ordered Start: 10-20-2021 take 2 tablets by [facility] twice daily at mealtime metFORMIN HCl ER 500 MG 2 tablets Orally bid with meals for 90 days Oct, Active Start: 07-22-2021 take 2 tablets by mo [facility] twice daily metFORMIN ER (GLUCOPHAGE XR) 500 mg 24 hr tablet Take 2 tablets by mouth twice daily. 360 tablet 3 07/22/2021 Active Start: 10-29-2019 metFORMIN HCl 500 MG 1 tablet with largest meal of the day Orally Once a day Oct, Active Start: 09-14-2017 End: 10-29-2023 Metformin Discontinued 500 M G PO Every 48 hours September 14, 2017 12:00am October 29, 2023 2:48pm Comment on above: Take 2 tablets by nm ut twice daily. Mometasone (20 sources) Corticosteroid Start: 04-10-2019 Start: 04-10-2019 Elocon 0.1 % 1 application Externally Once a day for 90 days prn Mar, Active Start: 09-14-2017 Mometasone (El ida) 0.1 % Cream Active 1 APPLIC TOPICAL Daily September 14, 2017 12:00am Start: 09-14-2017 Mometasone (Na sonex) 50 mcg/actuation [employer],Non-Aerosol Active 2 SPRAY INTRANASAL Daily September 14, 2017 12:00am Start: 02-22-2011 Nasonex Nasal, Daily, Refill(s) 0 Start Date: 02/22/11 Status: Ordered Start: 06-26-2008 mometasone fur oate(NASONEX 50 MCG/ACTUATION SPRAY) [employer] twice in each nostril once daily. 0 06/26/2008 Active Comment on above: [employer] twice in each nostril once daily. montelukast 10 mg oral tablet (20 sources) Leukotriene Receptor Antagonist Start: 1 take 1 tablet by mouth once daily at bedtime Montelukast (Singulair) 10 mg Tablet Active 10 MG PO Daily at bedtime September 14, 2017 12:00am Comment on above: Take 10 mg by mouth daily at bedtime. predniSONE 10 mg oral tablet (20 sources) Start: 3 predniSONE 10 MG 4 tablets daily x 3 days, 2 tablets daily x 3 days, 1.5 tablet daily x 7 days, 1 tablet daily x 7 days, 0.5 tablets daily x 7 days Orally Once a day for 27 days Aug, Active Start: 12-06-2021 predniSONE 10 MG 4 tabs x 7 days, 3 tabs x 7 days, 2 tabs x 7 days, 1 tab x 7 days then stop Orally Once a day for 28 days Nov, Not-Taking Start: 10-20-2021 predniSONE 20 MG take 3 tablets Orally x3 days, then 2 tabs x3 days then 1 tab a day x3 days then take 1/2 tablet x 4 days with food or milk for 13 days Oct, Active Start: 08-22-2021 predniSONE 10 MG 4 tablets daily for 3 days, 2 tablets daily for 3 days, 1 tablet daily for 7 days Orally Once a day for 13 days Aug, Active Start: 03-15-2021 take 1 tablet by barbara th every twenty-four hours predniSONE 10 MG 1 tablet Orally Once a day Feb, Active predniSONE 5 MG 1/2 tablet Orally weaning down as directed Active ProAir HFA 108 (90 Base) MCG/ACT (20 sources) Start: 10-24-2016 ProAir HFA 108 (90 Base) MCG/ACT 2 inhalations Inhalation q4 hrs prn prn Oct, Active Tramadol (1 source) Opioid Agonist Start: 05-10-2023 tramadol Refills(s) 0 Start Date: 05/10/23 Status: Ordered valACYclovir 1000 mg oral tablet (10 sources) Herpesvirus Nucleoside Analog DNA Polymerase Inhibitor, Herpes Simplex Virus Nucleoside Analog DNA Polymerase Inhibitor, Herpes Zoster Virus Nucleoside Analog DNA Polymerase Inhibitor Start: 05-10-2021 take 1 tablet by mouth every eight hours Valtrex 1 GM 1 tablet Orally tid for 7 days Apr, Active Vitamin D (1 source) Start: 05-10-2023 Vitamin D Refills(s) 0 Start Date: 05/10/23 Status: Ordered Vitamin D 25 MCG (1000 UT) (13 sources) Start: 01-04-2021 take 25 ug by mouth once daily Vitamin D 25 MCG (1000 UT) 5000 units Orally Once a day Dec, Active Completed/Discontinued Medications Medication Drug Class(es) Dates Sig (Normalized) Sig (Original) cefTRIAXone (20 sources) Cephalosporin Antibacterial Start: 09-09-2018 Rocephin 500 mg Aug, 1 g cyclobenzaprine hydrochloride 10 mg oral tablet (20 sources) Muscle Relaxant Start: 08-28-2023 End: 01-08-2024 take 1 tablet by mouth once daily at bedtime Cyclobenzaprine Discontinued 10 MG PO Daily at bedtime December 14, 2023 10:30am January 08, 2024 11:30am TAKE 1 TABLET AT BEDTIME Start: 01-30-2018 take 1 tablet by barbara th once daily at bedtime Flexeril 10mg 1 tablet Orally QHS for 90 days Jan, Active Start: 01-30-2018 Start: 09-14-2017 End: 09-16-2017 take 10 mg by mouth three times daily Cyclobenzaprine Discontinued 10 MG PO Three times daily September 14, 2017 12:00am September 16, 2017 1:16pm 84 hr estradiol 0.79382 mg/hr transdermal system (10 sources) Estrogen Start: 09-14-2017 End: 08-28-2023 Estradiol (Vivelle-Dot) 0.0375 mg/24 hr Patch Semiweekly Discontinued 1 PATCH TRANSDERML Once September 14, 2017 12:00am August 28, 2023 11:12am glimepiride 1 mg oral tablet (20 sources) Sulfonylurea Start: 08-28-2023 End: 08-28-2023 Glimepiride Discontinued 1 MG PO Daily August 28, 2023 10:09am August 28, 2023 11:12am 1 tablet with breakfast or the first main meal of the day Orally Once a day; Note: Source Status: Start; Refills: 1; Qty: 90 Tablet; Provider: Dontrell Aguilar ( ) Start: 02-22-2023 take 1 tablet by barbara th every twenty-four hours Glimepiride 1 MG 1 tablet with breakfast or the first main meal of the day Orally Once a day for 30 days Feb, Active hydrocortisone 10 mg/ml / neomycin 3.5 mg/ml / polymyxin b 80318 unt/ml otic solution (12 sources) Aminoglycoside Antibacterial, Polymyxin-class Antibacterial, Corticosteroid Start: 08-11-2022 Mklroour-Rmmbnqzyc-FO 3.5-16477-5 4 drops into affected ear Otic Three times a day for 7 days Jul, Not-Taking Ketorolac (20 sources) Nonsteroidal Anti-inflammatory Drug, Cyclooxygenase Inhibitor Start: 08-11-2016 Toradol per 15 mg Jul, 2 cc levothyroxine sodium 0.2 mg oral tablet (20 sources) l-Thyroxine Start: 08-28-2023 End: 09-03-2023 take 1 tablet by mouth once daily in the morning Levothyroxine (Synthroid) 200 mcg tablet Discontinued 200 MCG PO Daily August 28, 2023 11:47am September 03, 2023 12:49pm take on an empty stomach first thing in the morning do not eat or drink for 30-45 min after taking Start: 05-10-2023 Synthroid 200 mcg (0.2 mg) Tab Refills(s) 0 Start Date: 05/10/23 Status: Ordered Start: 10-13-2021 levothyroxine (SYNTHROID) 200 mcg tablet Take one tablet daily. 90 tablet 1 10/13/2021 Active Start: 07-22-2021 End: 10-13-2021 take 2 tablets by mouth once daily levothyroxine (SYNTHROID) 112 mcg tablet Take 2 tablets by mouth once daily. 180 tablet 3 07/22/2021 10/13/2021 Discontinued (Course of therapy completed) Start: 10-27-2020 take 1 tablet by barbara th in the morning Synthroid 175 MCG 1 tablet in the morning on an empty stomach Orally alternating with 200 MCG for 90 days PT REQUESTING MYLAN BRAND Oct, Active Start: 09-14-2017 End: 08-28-2023 take 1 tablet by mouth once daily Levothyroxine (Synthroid) 175 mcg Tablet Discontinued 175 MCG PO Daily September 14, 2017 12:00am August 28, 2023 11:40am take 1 tablet by barbara th in the morning Levothyroxine Sodium 200 MCG 1 tablet on an empty stomach in the morning Orally PT REQUESTING MYLAN BRAND Active Comment on above: Take 2 tablets by mo uth once daily. Take one tablet yasmine y. lisinopril 10 mg oral tablet (10 sources) Angiotensin Converting Enzyme Inhibitor Start: 09-17-19 18 End: 08-28-19 24 take 10 mg by mouth once daily Lisinopril Discontinued 10 MG PO Daily September 16, 2017 12:00am August 28, 2023 11:13am Dhssdoeg-Giw-Zwbshl s Gluconate (Centrum) 9 mg iron/15 mL Liquid (10 sources) Start: 09-15-19 18 End: 08-28-19 24 take 2 tablets by mouth once daily Vvezhrzw-Myh-Skprpw s Gluconate (Centrum) 9 mg iron/15 mL Liquid Discontinued 2 TAB PO Daily September 14, 2017 12:00am August 28, 2023 11:13am MULTIVIT-MINERALS/F ERROUS GLUC (CENTRAM-CARE ORAL) (5 sources) MULTIVIT-MINERAL S/F ERROUS GLUC (CENTRAM-CARE ORAL) Take by mouth twice daily. 0 Active Comment on above: Take by mouth twice daily. 72 hr scopolamine 0.0139 mg/hr transdermal system (14 sources) Anticholinergic Start: 07-12-19 23 Scopolamine 1 MG/3DAYS 1 patch to skin behind the ear Transdermal change q72 hours Jun, Not-Taking TB Test (20 sources) Start: 02-10-20 15 TB Test Jan, 0.1 mL 24 hr venlafaxine 37.5 mg extended release oral capsule (3 sources) Serotonin and Norepinephrine Reuptake Inhibitor Start: 10-08-19 22 venlafaxine ER (EFFEXOR XR) 37.5 mg 24 hr capsule take one a day, if tolerated after two weeks increase to two 60 capsule 3 10/07/2021 Active Comment on above: take one a day, if t olerated after two weeks increase to two [employer] [place] (StowThat) (3 sources) Start: 03-30-20 16 End: 10-14-19 22 take 1 capsule by mouth once daily at mealtime [employer] [place] (StowThat) Take 1 capsule by mouth daily with food. 0 03/30/2016 10/13/2021 Discontinued (Course of therapy completed) Start: 03-30-2016 take 1 capsule by mo uth once daily at mealtime Vitamin D [place] ([place]owThat) Take 1 capsule by mouth daily with food. 0 03/30/2016 Active Comment on above: Take 1 capsule by mo uth daily with food. Problems Active Problems Problem Classification Problem Date Documented Da te Episodic/Chronic Anxiety disorders (20 sources) Generalized anxiety disorder; Translations: [Generalized anxiety disorder] Chronic Asthma (20 sources) Asthma; Translations: [Unspecified asthma, uncomplicated] Onset: 1 Resolved: 2 Chronic Cardiac dysrhythmias (14 sources) Palpitations; Translations: [Palpitations] Episodic Diabetes mellitus with complications (5 sources) Type 2 diabetes mellitus; Translations: [Type 2 diabetes mellitus with hyperglycemia] Onset: 2 Chronic Diabetes mellitus without complication (20 sources) Type 2 diabetes mellitus without complication; Translations: [Type 2 diabetes mellitus without complications] Onset: 1 Resolved: 2 Chronic Diabetes mellitus without complication (20 sources) Hyperglycemia; Translations: [Hyperglycemia, unspecified] Episodic Digestive congenital anomalies (20 sources) Disorder of tongue; 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 Disorders of lipid metabolism (20 sources) Hyperlipidemia; Translations: [Hyperlipidemia, unspecified] Onset: 2 Resolved: 2 Chronic E Codes: Natural/environment (2 sources) Bitten by cat, initial encounter Episodic Esophageal disorders (20 sources) Gastroesophageal reflux disease; Translations: [Gastro-esophageal reflux disease without esophagitis] Onset: 1 Resolved: 2 Chronic Essential hypertension (1 source) Hypertensive disorder 05-10-2023 Chronic Fever of unknown origin (1 source) Fever, unspecified Episodic Genitourinary symptoms and ill-defined conditions (4 sources) Nocturia; Translations: [NOCTURIA] Onset: 3 Episodic Headache; including migraine (20 sources) Headache; Translations: [Headache] Episodic Headache; including migraine (4 sources) Headache; including migraine; Translations: [HEADACHE UNSPECIFIED] Onset: 3 Malaise and fatigue (5 sources) Chronic fatigue syndrome; Translations: [Chronic fatigue, unspecified] Onset: 6 09-20-2015 Chronic Malaise and fatigue (14 sources) Other fatigue; Translations: [Fatigue] Episodic Miscellaneous mental health disorders (5 sources) Binge eating disorder; Translations: [Binge eating disorder] Onset: 6 09-20-2015 Chronic Mood disorders (20 sources) Depressive disorder; Translations: [Major depressive disorder, single episode, unspecified] Onset: 2 Resolved: 2 Chronic Nausea and vomiting (20 sources) Nausea; Translations: [Nausea] Episodic Noninfectious gastroenteritis (1 source) Noninfective gastroenteritis and colitis, unspecified Episodic Nutritional deficiencies (20 sources) Vitamin D deficiency; Translations: [Vitamin D deficiency, unspecified] Onset: 3 Chronic Nutritional deficiencies (1 source) Dietary selenium deficiency; Translations: [DIETARY SELENIUM DEFICIENCY] Onset: 3 Episodic Osteoarthritis (1 source) Osteoarthritis 05-10-2023 Chronic Other aftercare (20 sources) Long-term current use of systemic steroid; Translations: [USP (current) use of systemic steroids] Episodic Other aftercare (9 sources) Other terminal make up operator (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; Translations: [Long-term (current) use of other medications] Onset: 1 Resolved: 2 Episodic Other aftercare (1 source) USP (current) use of oral hypoglycemic drugs; Translations: [RETIREMENT USE ORAL HYPOGLYCEMIC DX] Onset: 3 Episodic Other aftercare (10 sources) Long-term current use of drug therapy; Translations: [Other mcc (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] 08-28-2023 Episodic Other circulatory disease (20 sources) Elevated blood-pressure reading, without diagnosis of hypertension; Translations: [Elevated blood pressure reading without diagnosis of hypertension] Onset: 2 Resolved: 2 Episodic Other circulatory disease (10 sources) Elevated blood pressure; Translations: [Elevated blood-pressure reading, without diagnosis of hypertension] 08-28-2023 Episodic Other connective tissue disease (20 sources) Fibromyalgia; Translations: [Fibromyalgia] Onset: 6 09-20-2015 Episodic Other connective tissue disease (20 sources) Cramp; Translations: [Cramp and spasm] Episodic Other connective tissue disease (1 source) Myalgia, unspecified site Episodic Other ear and sense organ disorders (5 sources) Sensorineural hearing loss, bilateral; Translations: [Sensorineural hearing loss, bilateral] Onset: 9 12-16-2018 Chronic Other ear and sense organ disorders (9 sources) Asymmetrical sensorineural hearing loss; Translations: [Sensorineural hearing loss, bilateral] 09-26-2023 Chronic Other ear and sense organ disorders (11 sources) Sensorineural hearing loss, bilateral; Translations: [Sensorineural hearing loss, asymmetrical] 09-26-2023 Chronic Other ear and sense organ disorders (1 source) Otalgia, right ear Episodic Other ear and sense organ disorders (1 source) Unspecified acute noninfective otitis externa, right ear Episodic Other ear and sense organ disorders (9 sources) Tinnitus of vascular origin; Translations: [Pulsatile tinnitus, unspecified ear] 09-12-2023 Episodic Other ear and sense organ disorders (9 sources) Tinnitus; Translations: [Tinnitus, unspecified ear] 09-26-2023 Episodic Other ear and sense organ disorders (5 sources) Tinnitus, unspecified ear; Translations: [Tinnitus, unspecified] 09-26-2023 Episodic Other gastrointestinal disorders (1 source) Diarrhea, unspecified Episodic Other gastrointestinal disorders (8 sources) Diarrhea; Translations: [Diarrhea, unspecified] 10-29-2023 Episodic Other liver diseases (20 sources) Steatosis of liver; Translations: [Fatty (change of) liver, not elsewhere classified] Chronic Other liver diseases (20 sources) Inflammatory disease of liver; Translations: [Inflammatory liver disease, unspecified] 09-17-2017 Chronic Other lower respiratory disease (20 sources) Cough; Translations: [Cough] Episodic Other lower respiratory disease (1 source) Shortness of breath; Translations: [SHORTNESS OF BREATH] Onset: 3 Episodic Other nervous system disorders (20 sources) Chronic pain; Translations: [Other chronic pain] 08-28-2023 Chronic Other nervous system disorders (20 sources) Other chronic pain; Translations: [Other chronic pain] Chronic Other nervous system disorders (20 sources) Paresthesia of hand ; Translations: [Paresthesia of skin] Episodic Other nervous system disorders (20 sources) Disorder of taste; Translations: [Unspecified disturbances of smell and taste] Episodic Other non-traumatic joint disorders (4 sources) Pain in unspecified joint; Translations: [Polyarthralgia M25.50] Onset: 1 Resolved: 1 Episodic Other non-traumatic joint disorders (13 sources) Pain in unspecified hip; Translations: [Pain in joint, pelvic region and thigh] Episodic Other non-traumatic joint disorders (1 source) Pain in left shoulder Episodic Other non-traumatic joint disorders (10 sources) Multiple joint pain; Translations: [Pain in unspecified joint] 08-28-2023 Episodic Other non-traumatic joint disorders (7 sources) Hip pain; Translations: [Pain in unspecified hip] 12-05-2023 Episodic Other nutritional; endocrine; and metabolic disorders (20 sources) Body mass index 40+ - severely obese; Translations: [Body mass index (BMI) 50.0-59.9, adult] Onset: 6 09-20-2015 Chronic Other nutritional; endocrine; and metabolic disorders (5 sources) Metabolic syndrome X; Translations: [Metabolic syndrome] Onset: 6 09-20-2015 Chronic Other nutritional; endocrine; and metabolic disorders (20 sources) Hypercalcemia; Translations: [Hypercalcemia] Chronic Other nutritional; endocrine; and metabolic disorders (20 sources) Obesity; Translations: [Obesity, unspecified] Chronic Other nutritional; endocrine; and metabolic disorders (2 sources) Abnormal weight loss Onset: 2 Resolved: 2 Episodic Other nutritional; endocrine; and metabolic disorders (2 sources) Abnormal weight gain Episodic Other screening for suspected conditions (not mental disorders or infectious disease) (20 sources) Liver function tests abnormal; Translations: [Other specified abnormal findings of blood chemistry] Episodic Other upper respiratory disease (20 sources) Seasonal allergy; Translations: [Other seasonal allergic rhinitis] 08-28-2023 Chronic Other upper respiratory disease (7 sources) Other seasonal allergic rhinitis; Translations: [Seasonal allergies J30.2] Onset: 1 Resolved: 2 Chronic Other upper respiratory disease (1 source) Nasal congestion; Translations: [NASAL CONGESTION] Onset: 3 Episodic Other upper respiratory infections (1 source) Acute sinusitis, unspecified Episodic Otitis media and related conditions (20 sources) Dysfunction of eustachian tube; Translations: [Other specified disorders of Eustachian tube, unspecified ear] Onset: 3 Episodic Residual codes; unclassified (20 sources) Insomnia; Translations: [Insomnia, unspecified] Episodic Residual codes; unclassified (2 sources) Pain, unspecified; Translations: [PAIN UNSPECIFIED] Onset: 3 Episodic Residual codes; unclassified (1 source) Acquired absence of other specified parts of digestive tract; Translations: [ACQ ABSENCE OTH PART DIGESTV TRACT] Onset: 3 Episodic Residual codes; unclassified (1 source) Acquired absence of both cervix and uterus; Translations: [ACQUIRED ABSENCE BOTH CERVIX AND UTERUS] Onset: 3 Episodic Spondylosis; intervertebral disc disorders; other back problems (20 sources) Inflammation of sacroiliac joint; Translations: [Sacroiliitis, not elsewhere classified] 12-05-2023 Chronic Spondylosis; intervertebral disc disorders; other back problems (20 sources) Neck pain; Translations: [Cervicalgia] Onset: 2 Resolved: 2 Episodic Thyroid disorders (20 sources) Acquired hypothyroidism; Translations: [Hypothyroidism, unspecified] Onset: 6 Resolved: 2 Chronic Unclassified (4 sources) COUGH, UNSPECIFIED; Translations: [COUGH, UNSPECIFIED] Onset: 2 Unclassified (1 source) PERSONAL HISTORY OF COVID-19; Translations: [PERSONAL HISTORY OF COVID-19] Onset: 3 Unclassified (1 source) CONTACT W/AND (SUSP) EXPOS COVID-19; Translations: [CONTACT W/AND (SUSP) EXPOS COVID-19] Onset: 3 Urinary tract infections (10 sources) Urinary tract infectious disease; Translations: [Urinary tract infection, site not specified] 09-17-2017 Episodic Past or Other Problems Problem Classification Problem Date Documented Da te Episodic/Chronic Abdominal pain (20 sources) Abdominal pain; Translations: [Unspecified abdominal pain] Onset: 03-15-2021 Resolved: 03-15-2021 Episodic Chronic obstructive pulmonary disease and bronchiectasis (1 source) Bronchitis, not specified as acute or chronic; Translations: [Bronchitis J40] Onset: 02-24-2021 Resolved: 02-24-2021 Episodic Other connective tissue disease (1 source) Pain in left hand Onset: 05-25-2021 Resolved: 05-25-2021 Episodic Other connective tissue disease (1 source) Pain in leg, unspecified Onset: 07-04-2021 Resolved: 07-04-2021 Episodic Other connective tissue disease (1 source) Fibromyalgia; Translations: [Fibromyalgia] Onset: 09-20-2015 Episodic Other lower respiratory disease (2 sources) Wheezing; Translations: [WHEEZING] Onset: 10-20-2021 Resolved: 10-20-2021 Episodic Unclassified (1 source) Lumbar pain M54.50 Onset: 07-04-2021 Resolved: 07-04-2021 Unclassified (1 source) Cough R05.9 Onset: 10-20-2021 Resolved: 10-20-2021 Unclassified (1 source) COUGH, UNSPECIFIED; Translations: [COUGH, UNSPECIFIED] Onset: 11-29-2021 Results Test Name Value Interpretation Reference Range Facility Gastroenterology Office/Clin ic Noteon 12-12-2023 Gastroenterology Office/Clinic Note Chief Complaint Followup for abd pain, chest pain, vomiting, diarrhea History of Present Illness Patient presents to GI clinic for a followup for abdominal pain radiating to chest pain, vomiting and diarrhea. KATIANA was 06/26/22 Continues to have persistent acid reflux despite Nexium 40 mg daily. Has anywhere from 5-10 stools per day type on [place] stool scale form, urgent and explosive to where she cannot really go anywhere with her friends and it is impacting the quality of her life. Denies medic easier, melena or hematemesis. Feels nauseated now this is new in the last 1 month. Has been very stressed out taking care of her aunt who is dying of gastric cancer. Never had EGD or colonoscopy. PCP: [facility] Constitutional: No fevers, chills, sweats Eye: No recent visual problems ENMT: No ear pain, nasal congestion, sore throat Respiratory: No shortness of breath, cough Cardiovascular: No Chest pain, palpitations, syncope Gastrointestinal: SEE HPI Genitourinary: No hematuria, no urgency/frequency Lymph: Negative for bruising tendency, swollen lymph glands Endocrine: Negative for excessive thirst, excessive hunger Musculoskeletal: No back pain, neck pain, joint pain, muscle pain, decreased range of motion Integumentary: No rash, pruritus, abrasions Neurologic: Alert & oriented X [address], time and situation Psychiatric: No anxiety, depression Physical Exam Vitals & Measurements HR: 98 (Peripheral) BP: 164/96 SpO2: 98 HT: 165 cm WT: 123.2 kg WT: 123.2 kg (Dosing) BMI: 45.25 General: Alert and oriented Eye: normal conjunctiva. HENT: Normocephalic Neck: Supple, non-tender, no carotid bruits, no JVD, no lymphadenopathy. Lungs: Clear to auscultation and percussion, non-labored respiration. Heart: Normal rate, regular rhythm, no murmur, gallop or edema. Abdomen: Soft, diffuse tenderness with light palpation, non-distended, normal bowel sounds, no masses. Musculoskeletal: Normal range of motion and strength, no tenderness or swelling. Skin: Skin is warm, dry and pink, no rashes or lesions. Neurologic: Awake, alert, and oriented X3 Psychiatric: Cooperative Additional Vitals No qualifying data available. Assessment/Plan Diarrhea Ordered: Colonoscopy and EGD Dyspepsia Ordered: Colonoscopy and EGD Early satiety Ordered: Colonoscopy and EGD NM Gastric Emptying Study GERD (gastroesophageal reflux disease) Ordered: Colonoscopy and EGD S/P cholecystectomy Ordered: Colonoscopy and EGD Orders: colestipol, 2 tabs, Oral, BID, with a full glass of water, # 120 tabs, 0 Refill(s), Pharmacy: [facility]/pharmacy #[id number] esomeprazole, 1 caps, Oral, BID, # 180 caps, 0 Refill(s), Pharmacy: [facility]/pharmacy #[id number] ondansetron, 1 tabs, Oral, q8hr, PRN, # 60 tabs, 0 Refill(s), Pharmacy: [facility]/pharmacy #[id number] polyethylene glycol 3350 with electrolytes, See Instructions, for colonoscopy prep, # 4,000 mL, 0 Refill(s), Pharmacy: [facility]/pharmacy #[id number] 1. Diarrhea s/p cholecystectomy - check CBC/CMP/ttg level to make sure no celiac pathology - check stool studies for infectious etiology - if no infectious etiology, trial colestipol and check CY to make sure no IBD/collagenous colitis/lymphocytic colitis - increase fiber in diet - GoLYTELY prep/SUTAB NOT COVERED - The benefits and risks associated with a colonoscopy have been outlined to the patient. The patient was advised that complications include, but are not limited to, perforation (hole in the bowel), bleeding, infection, electrolyte disturbance from the colon prep and complications associated with sedation (including heart and lung issues that could result in ). The patient verbalized understanding of the risks and consents to the procedure. - d/w patient importance of adequate bowel prep and need for shuttle van driver to accompany day of procedure, verbalizes understanding. 2. GERD - not controlled on daily PPI, increase to BID - zofran ok for nausea - check NM GES to r/o motility dysfunction - check EGD to ro PUD, HH, BE, gastritis/esophagitis - enc. weight loss, avoid supine position for 3 hours after meals - avoid foods that decrease LES pressure, avoid overeating, avoid alcohol, nsaid, nicotine use. Medical Decision Making Chronic conditions NOT treated during this visit that affected my overall medical decision making: [] Treatment plans discussed but not opted for at this time: [] Prescribed medication that requires intensive monitoring for toxicity: [] I have reviewed the patient?s medication list for medication interactions/contrain dications and/or for upcoming procedures: [yes or no] Time Spent with the Patient I have personally spent [] minutes on this date, directly related to today's patient visit, including pre and post visit work, for this date of service. Time listed does not include time spent on separately billable services. Problem List/Past Medical History Ongoing Asthma Endometriosis Fibromyalg (more content not included)... Normal [facility] XR hips BI 4V adulton 2023 XR hips BI 4V adult [facility] Main [address] [address] XRay Report Signed Patient: Canelo Pathak MR#: [id number] 4 : 1965 Acct:[id number] Age/Sex: 58 / F ADM Date: 12/05/23 Loc: XD Room: Type: [facility] Attending Dr: Logan Brown MD Copies to: Logan Brown MD Ordering Provider: Logan Brown MD Date of Service: 12/05/23 XR/XR hips BI 4V adult: M25.559 - Pain in unspecified hip 2 views of both hips plain film COMPARISON: None HISTORY: Low back pain and bilateral hip pain for 2 years ACUTE FINDINGS: None DEGENERATIVE CHANGE: Unremarkable SOFT TISSUE FINDINGS: Unremarkable JOINT EFFUSION: None POSTOP CHANGES: None BONY MINERALIZATION: Adequate XR/XR hips BI 4V adult IMPRESSION: Unremarkable exam Impression dictated by: Omid Seals M.D.12/05/2023 5:09 PM Dictation Location: [place] [address] Transcribed By: [facility] 12/05/231708 Dictated By: Omid Seals DO 12/05/231707 Signed By: 12/05/23 170 Normal [facility] XR lumbar spine AP/LAT/FLX/E XTon 12-05-2023 XR lumbar spine AP/LAT/FLX/EXT [address] [address] XRay Report Signed Patient: Canelo Pathak MR#: [id number] 4 : 1965 Acct:[id number] Age/Sex: 58 / F ADM Date: 12/05/23 Loc: XD Room: Type: [facility] Attending Dr: Logan Brown MD Copies to: Logan Brown MD Ordering Provider: Logan Brown MD Date of Service: 12/05/23 XR/XR lumbar spine AP/LAT/FLX/EXT: M48.061 - Spinal stenosis, lumbar region without neurogen... AP with lateral neutral, flexion extension views of the Lumbar Spine HISTORY: Low back and bilateral hip pain for 2 years COMPARISON: None POSTSURGICAL CHANGES: None BONY ALIGNMENT: Mild scoliosis HYPERMOBILITY:No hypermobility LISTHESIS:Mild degenerative listhesis FRACTURE: None DEGENERATIVE CHANGES: Mild spondylosis. Moderate facet degeneration SOFT TISSUES: Unremarkable BONY MINERALIZATION:[place] te XR/XR lumbar spine AP/LAT/FLX/EXT IMPRESSION: No hypermobility. Degenerative change. Impression dictated by: Omid Seals M.D.12/05/2023 5:08 PM Dictation Location: [place] [address] Transcribed By: [facility] 12/05/231707 Dictated By: Omid Seals DO 12/05/231705 Signed By: 12/05/231707 Normal [facility] Estimated glomerular filtrat ion rate (GFR) non- Americanon 10-25-2023 GFR/1.73 sq M.predicted among non-blacks MDRD (S/P/Bld) [Vol rate/Area] mL/min/{1.73_m2} >=60 [facility] - Chemistry and C hemistry - challengeon 10-25-2023 Calcium [Mass/Vol] 9.3 mg/dL 8.5-10.1 [facility] Chloride [Moles/Vol] 103 mmol/L 98-107 [facility] CO2 [Moles/Vol] 29.7 mmol/L 21.0-32.0 [facility] Creatinine [Mass/Vol] 0.88 mg/dL 0.55-1.02 [facility] Free T4 [Mass/Vol] 1.33 ng/dL 0.76-1.46 [facility] GFR/1.73 sq M.predicted MDRD (S/P/Bld) [Vol rate/Area] mL/min/{1.73_m2} >=60 [facility] Glucose [Mass/Vol] 121 mg/dL High 74-106 [facility] Potassium [Moles/Vol] 4.4 mmol/L 3.5-5.1 [facility] Sodium [Moles/Vol] 140 mmol/L 136-145 [facility] TSH Qn 5.994 m[IU]/L High 0.358-3.740 [facility] Urea nitrogen [Mass/Vol] 18.0 mg/dL 7.0-18.0 [facility] Urea nitrogen/Creatinine [Mass ratio] 20.5 mg/mg [facility] No Panel Informationon 10-24 Total Triiodothyronine 100 ng/dL 71-180 [facility] Comment on above: Performed at: [address] Director: Giuseppe Newell PhD, Phone: [phone] Serum or plasma anion gap de terminationon 10-25-2023 Anion gap [Moles/Vol] 11.7 mmol/L [facility] Patient Correspondenceon Patient Correspondence [id number] Normal [facility] Automated epithelial cells c ount in urine sediment (number/area)on 08-23-2023 Epithelial cells Auto (Urine sed) [#/Area] RARE #/LPF NONE/RARE [facility] Automated leukocytes count i n urine sediment (number/area)on 08-23-2023 WBC Auto (Urine sed) [#/Area] 0-2 #/HPF 0-2 [facility] Automated urine specific gra vity by refractometryon 08-23-2023 Specific gravity Refractometry automated (U) [Rel density] >=1.030 1.005-1.025 [facility] Basophils Auto (Bld) [#/Vol] on 08-23-2023 Basophils (Bld) [#/Vol] 0.1 10 3/uL 0.0-0.1 [facility] Basophils/100 WBC Auto (Bld) on 08-23-2023 Basophils/100 WBC (Bld) 1.4 % 0.2-2.0 [facility] Bilirubin Auto test strip (U ) [Mass/Vol]on 08-23-2023 Bilirubin (U) [Mass/Vol] Negative NEGATIVE [facility] Casts typing in urine sedime nt by light microscopyon 08-23-2023 Casts LM Nom (Urine sed) NONE SEEN #/LPF NONE SEEN [facility] Cholesterol in LDL Calc [Mas s/Vol]on 08-23-2023 Cholesterol in LDL [Mass/Vol] 101.0 mg/dL [facility] Comment on above: <100 mg/dl [id number] 0-129 mg/dl NEAR OR ABOVE [id number] mg/dl BORDERLINE [id number] mg/dl HIGH>190 mg/dl VERY HIGH Cholesterol in VLDL Calc [Ma ss/Vol]on 08-23-2023 Cholesterol in VLDL [Mass/Vol] 25.0 mg/dL [facility] Color Auto (U)on 08-23-2023 Color (U) YELLOW YELLOW [facility] Eosinophils/100 WBC Auto (Bl d)on 08-23-2023 Eosinophils/100 WBC (Bld) 5.2 % 0.9-7.0 [facility] Erythrocyte distribution wid th Auto (RBC) [Ratio]on 08-23-2023 Erythrocyte distribution width (RBC) [Ratio] 12.1 % 11.0-15.0 [facility] Estimated glomerular filtrat ion rate (GFR) non- Americanon 08-23-2023 GFR/1.73 sq M.predicted among non-blacks MDRD (S/P/Bld) [Vol rate/Area] mL/min/{1.73_m2} >=60 [facility] Globulin Calc (S) [Mass/Vol] on 08-23-2023 Globulin (S) [Mass/Vol] 3.3 g/dL [facility] Glucose mean value [Mass/vol ume] in Blood Estimated from glycated hemoglobinon 08-23-2023 Average glucose Estimated from glycated hemoglobin (Bld) [Mass/Vol] 143 mg/dL [facility] Hematocrit Auto (Bld) [Volum e fraction]on 08-23-2023 Hematocrit (Bld) [Volume fraction] 41.2 % 36.0-48.0 [facility] Hemoglobin [Mass/volume] in Bloodon 08-23-2023 Hemoglobin (Bld) [Mass/Vol] 13.6 g/dL 12.0-16.0 [facility] Ketones Auto test strip (U) [Mass/Vol]on 08-23-2023 Ketones (U) [Mass/Vol] Negative NEGATIVE [facility] - Chemistry and C hemistry - challengeon 08-23-2023 Albumin [Mass/Vol] 3.8 g/dL 3.4-5.0 [facility] ALP [Catalytic activity/Vol] 72 U/L 46-116 [facility] ALT [Catalytic activity/Vol] 25 U/L 14-59 [facility] AST [Catalytic activity/Vol] 14 U/L 15-37 [facility] Bilirubin [Mass/Vol] 0.5 mg/dL 0.2-1.0 [facility] Calcium [Mass/Vol] 9.1 mg/dL 8.5-10.1 [facility] Chloride [Moles/Vol] 103 mmol/L 98-107 [facility] Cholesterol [Mass/Vol] 193 mg/dL <=200 [facility] Cholesterol in HDL [Mass/Vol] 67 mg/dL 40-60 [facility] Comment on above: > or =60 mg/dl - LOW CARDIOVASCULAR RISK<40 mg/dl - HIGH CARDIOVASCULAR RISK CO2 [Moles/Vol] 28.7 mmol/L 21.0-32.0 [facility] Creatinine [Mass/Vol] 0.77 mg/dL 0.55-1.02 [facility] Free T4 [Mass/Vol] 1.11 ng/dL 0.76-1.46 [facility] GFR/1.73 sq M.predicted MDRD (S/P/Bld) [Vol rate/Area] mL/min/{1.73_m2} >=60 [facility] Glucose [Mass/Vol] 117 mg/dL 74-106 [facility] Potassium [Moles/Vol] 4.2 mmol/L 3.5-5.1 [facility] Protein [Mass/Vol] 7.1 g/dL 6.4-8.2 [facility] Sodium [Moles/Vol] 142 mmol/L 136-145 [facility] Triglyceride [Mass/Vol] 125 mg/dL <=150 [facility] TSH Qn 18.751 m[IU]/L 0.358-3.740 [facility] Urea nitrogen [Mass/Vol] 19.0 mg/dL 7.0-18.0 [facility] Urea nitrogen/Creatinine [Mass ratio] 24.7 mg/mg [facility] - Hematology and Cell countson 08-23-2023 HbA1c (Bld) [Mass fraction] 6.6 % 4.5-6.2 [facility] Comment on above: ADA RECOMMENDED LIMI T 4.0 - 6.0ADA THERAPEUTIC TARGET < 7.0ACTION SUGGESTED> 7.0 Immature granulocytes/100 WBC (Bld) 0.3 % 0.0-0.5 [facility] Leukocytes [#/volume] correc reilly for nucleated erythrocytes in Blood by Automated counon 08-23-2023 WBC corrected for nucl RBC Auto (Bld) [#/Vol] 7.4 10 3/uL 4.0-11.0 [facility] Lymphocytes Auto (Bld) [#/Vo l]on 08-23-2023 Lymphocytes (Bld) [#/Vol] 2.2 10 3/uL 1.2-3.8 [facility] Lymphocytes/100 WBC Auto (Bl d)on 08-23-2023 Lymphocytes/100 WBC (Bld) 29.7 % 20.5-60.0 [facility] MCH Auto (RBC) [Entitic mass ]on 08-23-2023 MCH (RBC) [Entitic mass] 31.3 pg 26.7-34.0 [facility] MCHC Auto (RBC) [Mass/Vol]on 08-23-2023 MCHC (RBC) [Mass/Vol] 33.0 g/dL 29.9-35.2 [facility] MCV Auto (RBC) [Entitic vol] on 08-23-2023 MCV (RBC) [Entitic vol] 94.7 fL 81.0-99.0 [facility] Monocytes Auto (Bld) [#/Vol] on 08-23-2023 Monocytes (Bld) [#/Vol] 0.5 10 3/uL 0.3-0.8 [facility] Monocytes/100 WBC Auto (Bld) on 08-23-2023 Monocytes/100 WBC (Bld) 6.4 % 1.7-12.0 [facility] Mucus LM Ql (Urine sed)on Mucus Ql (Urine sed) MODERATE NONE SEEN [facility] Neutrophils Auto (Bld) [#/Vo l]on 08-23-2023 Neutrophils (Bld) [#/Vol] 4.2 10 3/uL 1.4-6.5 [facility] Neutrophils/100 WBC Auto (Bl d)on 08-23-2023 Neutrophils/100 WBC (Bld) 57.0 % 43.0-75.0 [facility] No Panel Informationon 08-22 25-Hydroxy Vitamin D Total 35.2 ng/mL [facility] Comment on above: <20 ng/mL Vit D defi cient20-<30 ng/mL Vit D [id number] ng/mL Vit D sufficient>100 ng/mL Potential Toxicity Eosinophils # (Auto) 0.4 10 3/uL 0.0-0.7 [facility] Free Triiodothyronine 1.94 pg/mL 2.18-3.98 [facility] Immature Granulocyte # (Auto) 0.02 10 3/uL 0.00-0.03 [facility] Platelet mean volume Auto (B ld) [Entitic vol]on 08-23-2023 Platelet mean volume (Bld) [Entitic vol] 9.7 fL 9.5-13.5 [facility] Platelets Auto (Bld) [#/Vol] on 08-23-2023 Platelets (Bld) [#/Vol] 347 10 3/uL 150-450 [facility] Protein Auto test strip (U) [Mass/Vol]on 08-23-2023 Protein (U) [Mass/Vol] Negative NEG/TRACE [facility] RBC Auto (Bld) [#/Vol]on RBC (Bld) [#/Vol] 4.35 10 6/uL 4.20-5.40 [facility] Serum or plasma albumin/glob ulin mass ratioon 08-23-2023 Albumin/Globulin [Mass ratio] 1.2 {ratio} [facility] Serum or plasma anion gap de terminationon 08-23-2023 Anion gap [Moles/Vol] 14.5 [facility] or plasma total choles terol/high density lipoprotein (HDL) cholesterol mass constantin 08-23-2023 Cholesterol.total/Cho lesterol in HDL [Mass ratio] 2.9 {ratio} [facility] Comment on above: 3.3 - 4.4 LOW RISK4. 4 - 7.1 AVERAGE RISK7.1 - 11.0 MODERATE RISK>11.0 HIGH RISK Specific gravity Auto test s trip (U) [Rel density]on 08-23-2023 Specific gravity (U) [Rel density] CLEAR CLEAR [facility] Urine bacteria detection by automated methodon 08-23-2023 Bacteria Auto Ql (U) NONE SEEN #/HPF NONE SEEN [facility] Urine glucose measurement by test strip (mass/volume)on 08-23-2023 Glucose Test strip (U) [Mass/Vol] Negative NEGATIVE [facility] Urine hemoglobin detection b y automated test stripon 08-23-2023 Hemoglobin Auto test strip Ql (U) Negative NEGATIVE [facility] Urine nitrite detection by a utomated test stripon 08-23-2023 Nitrite Auto test strip Ql (U) Negative NEGATIVE [facility] Urine sediment crystal ident ification by light microscopyon 08-23-2023 Crystals LM Nom (Urine sed) None Seen #/HPF None Seen [facility] Urine sediment leukocyte cou nt by microscopy (number/high power field)on 08-23-2023 WBC LM.HPF (Urine sed) [#/Area] 0-2 #/HPF NONE SEEN [facility] Urobilinogen Auto test strip (U) [Mass/Vol]on 08-23-2023 Urobilinogen Qn (U) 0.2 {David'U}/dL 0.2-1.0 [facility] pH Auto test strip (U)on pH (U) 5.5 [pH] 5.0-9.0 [facility] Patient Correspondenceon Patient Correspondence [id number]# 1.00TIFF Normal [facility] Insurance Correspondence Off iceon 05-16-2023 Insurance Correspondence Office [id number]# 1.00TIFF Normal [facility] Consent for Treatmenton 04-21 Consent for Treatment [id number]# 1.00TIFF Normal [facility] Consultation Noteon 05-10-20 Consultation Note Patient: GENE PATHAK Age: 57 years Sex: Female : 1965 Associated Diagnoses: None Author: Casper Nguyen DO Chief Complaint 05/10/2023 14:10 EST Back Pain History of Present Illness Patient is presenting with complaints of back pain as well as left leg pain that radiates down the lateral and posterior aspect of her leg all the way down to the foot. She states that her pain is a 5/10 in severity when sitting and 9/10 in severity when standing. She has a significantly diminished ambulatory distance and she can only stand 10 to 15 minutes for the pain intensifies to a degree where she has to sit down. This pain has been significantly debilitating to her for several months and she has had back pain for several years. She did have a recent MRI that showed moderate central canal stenosis at L3/4 moderate to severe central canal stenosis at L4/5 and a disc bulge with annular tear and high intensity zone at L5/S1. We did review her MRI results with her today. She has tried conservative measures inclusive of znft-emy-glqrtem medications and prescription medications inclusive of meloxicam, she has tried Lyrica and gabapentin in the past without efficacy and some side effects. She has tried home stretching and strengthening exercises without any lasting relief would like to know what she can do next. PRASANTH Score: 54% PHQ-2: 3 Patient denies any symptoms of progressively worsening upper/lower extremity weakness, progressively worsening gait abnormality, new onset bowel/bladder incontinence/ urinary retention, or saddle anesthesia. No new or worsening symptoms of fever, chills, night sweats. Health Status Allergies: Allergic Reactions (All) Severity Not Documented Biaxin- Itching. Levaquin- Itching. Tequin- Itching. Nonallergic Reactions (All) Severity Not Documented Percocet Tablets- Nausea and vomiting. Vicodin Tablets- Nausea and vomiting., Allergies (5) Active Reaction Biaxin Itching Levaquin Itching Percocet Tablets nausea and vomiting Tequin Itching Vicodin Tablets nausea and vomiting Current medications: Home Medications (13) Active Advair 250 mcg-50 mcg Powder 1 puff(s), Inhalation, BID amitriptyline 25 mg Tab 25 mg = 1 tab(s), Oral, Once a day (at bedtime) Centrum , Oral, Daily losartan metformin Nasonex , Nasal, Daily Nexium 40 mg Cap-EC , Oral, Daily Premarin 0.45 mg Tab 0.45 mg = 1 tab(s), Oral, Daily Singulair 10 mg Tab 10 mg = 1 tab(s), Oral, qPM Synthroid 200 mcg (0.2 mg) Tab tramadol Vitamin D ZyrTEC 10 mg Tab 10 mg = 1 tab(s), Oral, Daily , No qualifying data available Histories Past Medical History: Active Acid reflux (403541244) Asthma (112960280) Hypothyroid (163920757) Family History: No family history items have been selected or recorded. Procedure history: Myringotomy and insertion of T tube (279564514). Comments: 02/22/2011 10:22 REKHA - Trixie HART, Sommer x2 Tonsillectomy (774009256). Cholecystectomy (90876762). Laparoscopy (125415667). Abdominal hysterectomy (114410604). Physical Examination Vital Signs (last 24 hrs) Last Charted Heart Rate Peripheral 81 bpm (MAY 10 14:10) SBP H 162mmHg (MAY 10:10) DBP H 90mmHg (MAY 10:10) Weight 123.7 kg (MAY 10:10) BMI 44.89 (MAY 10:) General: No acute distress. Patient appears well-nourished. HEENT: Head is normocephalic and external ears are normal in appearance. Cardiovascular: No signs of poor perfusion and no peripheral edema Pulmonary: Nonlabored breathing, symmetric chest movement. GI: Abdomen nondistended Integumentary: No lesions Musculoskeletal: Moderate tenderness palpation lumbar paraspinal musculature. Neurologic: Alert, oriented x3. 5/5 strength grossly in the bilateral upper extremities. 5/5 strength grossly in the bilateral lower extremities. Sensation intact to light touch in the bilateral lower extremities. Special Testing: Negative Carl sign bilaterally, seated straight leg raise test did reproduce mild radicular symptoms on the left only. Impression and Plan History, physical examination, and personal review of pertinent imaging results indicate a diagnosis of: -Lumbar stenosis with neurogenic claudication and lumbar radiculopathy -MRI was reviewed and showed moderate central canal stenosis at L3/4, moderate to severe central canal stenosis at L4/5 and disc bulge with annular tear and high intensity zone at L5/S1 Plan: -Will start on amitriptyline 25 mg at bedtime -Will plan to perform an L5/S1 interlaminar epidural steroid injection under fluoroscopic guidance -Will follow-up 1 month after the procedure or sooner if any issues arise Patient was counseled on the above diagnosis and treatment, all questions were answered and patient agrees to adhere to the plan above. Risk and benefits of appropriate procedures and medications were reviewed as well with patient, who voiced (more content not included)... [facility] Comment on above: Result Comment: Elec tronically Signed By: Casper Nguyen DO\.br\Date and Time Signed: 05/10/23 15:07 EST HIPAA Forms Officeon 023 HIPAA Forms Office [id number]#1 .00TIFF [facility] Legal Correspondence Officeo n 05-10-2023 Legal Correspondence Office [id number]#1 .00TIFF [facility] Legal Correspondence Office [id number]#1 .00TIFF [facility] Office/Clinic Note-Physician on 05-10-2023 Office/Clinic Note-Physician [id number]#1 .00TIFF Normal [facility] Patient Correspondenceon Patient Correspondence [id number]#1 .00TIFF Normal [facility] Patient Correspondence [id number]#1 .00TIFF Normal [facility] Patient Correspondence [id number]#1 .00TIFF Normal [facility] Patient Correspondence [id number]#1 .00TIFF Normal [facility] Patient Correspondence [id number]#1 .00TIFF Normal [facility] Patient History Officeon Patient History Office [id number]#1 .00TIFF Normal [facility] Outside Records Officeon Outside Records Office [id number]# 1.00TIFF Normal [facility] Radiology Outside Office [employer] Processing Supervisor yon 05-07-2023 Radiology Outside Office Copy [id number]# 1.00TIFF Normal [facility] Referrals Officeon Referrals Office [id number]# 1.00TIFF Normal [facility] MR LUMBAR SPINE WO CONTRASTo n 04-24-2023 MR LUMBAR SPINE WO CONTRAST EXAM: MRI Lumbar Spine MR LUMBAR SPINE WO CONTRAST COMPARISONS: None CLINICAL HISTORY: Possible spinal canal stenosis. Chronic lower back pain. Low back pain, Possible spinal stenosis TECHNIQUE: Multisequence multiplanar imaging of the lumbar spine was performed without gadolinium contrast. MR contrast: MultiHance Volume of contrast: None cc. FINDINGS: Vertebrae: Vertebral bodies show normal age-related bone marrow signal changes. No acute fracture. Conus: The conus medullaris ends at L1 level and is unremarkable. Incidental note is made of partially visualized right paracentric disc herniation at T11-12. T12-1: Normal central canal and neural foramina. L1-L2: Normal central canal and neural foramina. L2-L3: Normal central canal and neural foramina. L3-L4: Marked facet hypertrophy with thickening of ligamenta flava. 6 mm synovial cyst projecting off the medial aspect of the right facet joint with compression on the right posterior thecal sac. Changes resulting in moderate/severe spinal canal stenosis at this level. No foraminal stenosis. L4-L5: Moderate broad-based disc bulging. Facet hypertrophy and marked thickening of the ligamenta flava. Resulting moderate central canal stenosis. Minimal bilateral foraminal narrowing. L5-S1: Broad-based disc bulging. Focal hyperintensity at the posterior margin of the L5-S1 disc consistent with annular fissure. No canal stenosis. Mild lateral recess narrowing bilaterally. Retroperitoneum: No abnormality of the visualized aorta or retroperitoneum. IMPRESSION: L3-4 and L4-5 stenosis more striking at L3-4. Additional right L3-4 synovial cyst.. PARTIALLY VISUALIZED INCIDENTAL T11-12 RIGHT PARACENTRIC DISC EXTRUSION SUSPECTED. ELECTRONICALLY SIGNED BY: Anders Tompkins MD Normal Not Available Comment on above: Order Comment: Patie nt is Diabetic Type 2 Possible Transdermal patch CBC AUTO DIFFon 09-08-2022 BASO # 0.1 103/ul Normal 0.0-0.1 [facility] Comment on above: Performed By: #### F T3, CMP, LIPID, TSH #### [facility] [address] [address] [address] Gin Chew Basophils/100 WBC (Bld) 0.9 % Normal 0.2-2.0 [facility] Comment on above: Performed By: #### F T3, CMP, LIPID, TSH #### [facility] [address] [address] [address] Gin Chew EO # 0.5 103/ul Normal 0.0-0.7 [facility] Comment on above: Performed By: #### F T3, CMP, LIPID, TSH #### [facility] [address] [address] [address] Gin Chew Eosinophils/100 WBC (Bld) 5.8 % Normal 0.9-7.0 [facility] Comment on above: Performed By: #### F T3, CMP, LIPID, TSH #### [facility] [address] [address] [address] Gin Chew Erythrocyte distribution width (RBC) [Ratio] 13.0 % Normal 11.0-15.0 [facility] Comment on above: Performed By: #### F T3, CMP, LIPID, TSH #### [facility] [address] [address] [address] Gin Chew Hematocrit (Bld) [Volume fraction] 39.7 % Normal 36.0-48.0 [facility] Comment on above: Performed By: #### F T3, CMP, LIPID, TSH #### [facility] [address] [address] [address] Gin Chew Hemoglobin (Bld) [Mass/Vol] 13.2 g/dL Normal 12.0-16.0 [facility] Comment on above: Performed By: #### F T3, CMP, LIPID, TSH #### [facility] [address] [address] [address] Gin Chew IG # 0.05 10e3/ul Critically high 0.00-0.03 [facility] Comment on above: Performed By: #### F T3, CMP, LIPID, TSH #### [facility] [address] [address] [address] Gin Chew IG % 0.6 % Critically high 0.0-0.5 [facility] Comment on above: Performed By: #### F T3, CMP, LIPID, TSH #### [facility] [address] [address] [address] Gin Chew LYMPH # 2.1 103/ul Normal 1.2-3.8 [facility] Comment on above: Performed By: #### F T3, CMP, LIPID, TSH #### [facility] [address] [address] [address] Gin Chew Lymphocytes/100 WBC (Bld) 27.4 % Normal 20.5-60.0 [facility] Comment on above: Performed By: #### F T3, CMP, LIPID, TSH #### [facility] [address] [address] [address] Gin Chew MANUAL DIFF REQ NO Normal [facility] Comment on above: Performed By: #### F T3, CMP, LIPID, TSH #### [facility] [address] [address] [address] Gin Chew MCH (RBC) [Entitic mass] 30.9 pg Normal 26.7-34.0 [facility] Comment on above: Performed By: #### F T3, CMP, LIPID, TSH #### [facility] [address] [address] [address] Gin Chew MCHC (RBC) [Mass/Vol] 33.2 g/dL Normal 29.9-35.2 [facility] Comment on above: Performed By: #### F T3, CMP, LIPID, TSH #### [facility] [address] [address] [address] Gin Chew MCV (RBC) [Entitic vol] 93.0 fL Normal 81.0-99.0 [facility] Comment on above: Performed By: #### F T3, CMP, LIPID, TSH #### [facility] [address] [place] [address] Dr. Gin Chew MONO # 0.6 103/ul Normal 0.3-0.8 [facility] Comment on above: Performed By: #### F T3, CMP, LIPID, TSH #### [facility] [address] [address] [address] Gin Chew Monocytes/100 WBC (Bld) 7.1 % Normal 1.7-12.0 [facility] Comment on above: Performed By: #### F T3, CMP, LIPID, TSH #### [facility] [address] [place] [address] Dr. Gin Chew NEUT # 4.5 103/ul Normal 1.4-6.5 [facility] Comment on above: Performed By: #### F T3, CMP, LIPID, TSH #### [facility] [address] [address] [address] Gin Chew Neutrophils/100 WBC (Bld) 58.2 % Normal 43.0-75.0 [facility] Comment on above: Performed By: #### F T3, CMP, LIPID, TSH #### [facility] [address] [address] [address] Gin Chew Platelet mean volume (Bld) [Entitic vol] 9.7 fL Normal 9.5-13.5 [facility] Comment on above: Performed By: #### F T3, CMP, LIPID, TSH #### [facility] [address] [place] [address] Dr. Gin Chew PLT 339 103/ul Normal 150-450 [facility] Comment on above: Performed By: #### F T3, CMP, LIPID, TSH #### [facility] [address] [place] [address] Dr. Gin Chew RBC 4.27 106/ul Normal 4.20-5.40 [facility] Comment on above: Performed By: #### F T3, CMP, LIPID, TSH #### [facility] [address] [place] [address] Dr. Gin Chew WBC 7.7 103/ul Normal 4.0-11.0 [facility] Comment on above: Performed By: #### F T3, CMP, LIPID, TSH #### [facility] [address] [place] [address] Dr. Gin Chew PROF CHEM 8 (BAS METB)on Anion gap [Moles/Vol] 9.4 mmol/L Normal [facility] Comment on above: Performed By: #### F T3, CMP, LIPID, TSH #### [facility] [address] [place] [address] Dr. Gin Chew Calcium [Mass/Vol] 9.1 mg/dL Normal 8.5-10.1 [facility] Comment on above: Performed By: #### F T3, CMP, LIPID, TSH #### [facility] [address] [place] [address] Dr. Gin Chew Chloride [Moles/Vol] 104 mmol/L Normal 98-107 [facility] Comment on above: Performed By: #### F T3, CMP, LIPID, TSH #### [facility] [address] [address] [address] Gin Chew CO2 [Moles/Vol] 31.7 mmol/L Normal 21.0-32.0 [facility] Comment on above: Performed By: #### F T3, CMP, LIPID, TSH #### [facility] [address] [address] [address] Gin Chew Creatinine [Mass/Vol] 0.77 mg/dL Normal 0.55-1.02 [facility] Comment on above: Performed By: #### F T3, CMP, LIPID, TSH #### [facility] [address] [place] [address] Dr. Gin Chew EGFR-AF NORWEGIAN >60 Normal >=60 [facility] Comment on above: Performed By: #### F T3, CMP, LIPID, TSH #### [facility] [address] [address] [address] Gin Chew EGFR-NON AF NORWEGIAN >60 Normal >=60 [facility] Comment on above: Performed By: #### F T3, CMP, LIPID, TSH #### [facility] [address] [address] [address] Gin Chew Glucose [Mass/Vol] 143 mg/dL Critically high 74-106 [facility] Comment on above: Performed By: #### F T3, CMP, LIPID, TSH #### [facility] [address] [address] [address] Gin Chew Potassium [Moles/Vol] 4.1 mmol/L Normal 3.5-5.1 [facility] Comment on above: Performed By: #### F T3, CMP, LIPID, TSH #### [facility] [address] [address] [address] Gin Chew Sodium [Moles/Vol] 141 mmol/L Normal 136-145 [facility] Comment on above: Performed By: #### F T3, CMP, LIPID, TSH #### [facility] [address] [address] [address] Gin Chew Urea nitrogen [Mass/Vol] 19.0 mg/dL Critically high 7.0-18.0 [facility] Comment on above: Performed By: #### F T3, CMP, LIPID, TSH #### [facility] [address] [place] [address] Dr. Gin Chew Urea nitrogen/Creatinine [Mass ratio] 24.7 mg/mg Normal [facility] Comment on above: Performed By: #### F T3, CMP, LIPID, TSH #### [facility] [address] [address] [address] Gin Chew XR CHEST 2 Von 09-08-2022 XR CHEST 2 V EXAM: XR CHEST 2 V HISTORY: Cough , congestion and shortness of breath for the past 6 weeks. COMPARISON: 11/29/2021 TECHNIQUE: Upright PA and lateral chest x-ray FINDINGS: The heart is not enlarged and the vasculature is not distended. Very faint opacity at the left lung base raises the possibility of an early infiltrate. No acute infiltrate, effusion or pneumothorax is otherwise identified. Degenerative changes are seen in the spine. IMPRESSION: Very faint opacity at the left lung base raises the possibility of an early infiltrate. There is no other evidence of a focal infiltrate or cardiac decompensation, the overall appearance of the chest is otherwise unchanged. Electronically authenticated by: DURGA DENNIS Date: 2022-09-08 15:53 Normal [facility] CBC W MANUAL DIFFon 08-22-19 23 ANISOCYTOSIS 1+ Normal [facility] Comment on above: Performed By: #### C TASIA #### [facility] [address] [place] [address] Dr. Gin Chew ATYPICAL LYMPH # Normal [facility] Comment on above: Performed By: #### C TASIA #### [facility] [address] [address] [address] Gin Chew ATYPICAL LYMPH % Normal [facility] Comment on above: Performed By: #### C TASIA #### [facility] [address] [address] [address] Gin Chew BAND # 0.6 103/ul Critically high 0.0-0.3 [facility] Comment on above: Performed By: #### C BCMAN #### [facility] [address] [address] [address] Gin Chew BAND % 4 % Normal 0-5 [facility] Comment on above: Performed By: #### C BCMAN #### [facility] [address] [place] [address] Dr. Gin Chew BASOM # 0.00 103/ul Normal 0.00-0.10 [facility] Comment on above: Performed By: #### C BCMAN #### [facility] [address] [place] [address] Dr. Gin Chew BASOM % 0.0 % Critically low 0.2-2.0 [facility] Comment on above: Performed By: #### C BCDORIS #### [facility] [address] [place] [address] Dr. Gin Chew BLAST # Normal [facility] Comment on above: Performed By: #### C BCDORIS #### [facility] [address] [place] [address] Dr. Gin Chew BLAST % Normal [facility] Comment on above: Performed By: #### C BCDORIS #### [facility] [address] [place] [address] Dr. Gin Chew CORRECTED WBC Normal 4.0-11.0 [facility] Comment on above: Performed By: #### C BCDORIS #### [facility] [address] [place] [address] Dr. Gin Chew EOS # 0.45 103/ul Normal 0.00-0.70 [facility] Comment on above: Performed By: #### C BCDORIS #### [facility] [address] [place] [address] Dr. Gin Chew EOS% 3.0 % Normal 0.9-7.0 [facility] Comment on above: Performed By: #### C BCDORIS #### [facility] [address] [place] [address] Dr. Gin Chew HCT 43.1 % Normal 36.0-48.0 [facility] Comment on above: Performed By: #### C BCDORIS #### [facility] [address] [address] [address] Gin Chew HGB 14.4 g/dl Normal 12.0-16.0 [facility] Comment on above: Performed By: #### C TASIA #### [facility] [address] [address] [address] Gin Chew LYMPHM # 3.93 103/ul Critically high 1.20-3.80 [facility] Comment on above: Performed By: #### C TASIA #### [facility] [address] [address] [address] Gin Chew LYMPHM% 26.0 % Normal 20.5-60.0 [facility] Comment on above: Performed By: #### C TASIA #### [facility] [address] [place] [address] Dr. Gin Chew MCH 31.0 pg Normal 26.7-34.0 [facility] Comment on above: Performed By: #### C TASIA #### [facility] [address] [place] [address] Dr. Gin Chew MCHC 33.4 g/dl Normal 29.9-35.2 [facility] Comment on above: Performed By: #### C TASIA #### [facility] [address] [place] [address] Dr. Gin Chew MCV 92.7 fL Normal 81.0-99.0 [facility] Comment on above: Performed By: #### C TASIA #### [facility] [address] [place] [address] Dr. Gin Chew METAMYELOCYTE # Normal [facility] Comment on above: Performed By: #### C TASIA #### [facility] [address] [place] [address] Dr. Gin Chew METAMYELOCYTE % Normal [facility] Comment on above: Performed By: #### C TASIA #### [facility] [address] [place] [address] Dr. Gin Chew MONOM# 1.06 103/ul Critically high 0.30-0.80 [facility] Comment on above: Performed By: #### C TASIA #### [facility] [address] [place] [address] Dr. Gin Chew MONOM% 7.0 % Normal 1.7-12.0 [facility] Comment on above: Performed By: #### C TASIA #### [facility] [address] [place] [address] Dr. Gin Chew MPV 9.7 fL Normal 9.5-13.5 [facility] Comment on above: Performed By: #### C TASIA #### [facility] [address] [place] [address] Dr. Gin Chew MYELOCYTE # Normal [facility] Comment on above: Performed By: #### C TASIA #### [facility] [address] [place] [address] Dr. Gin Chew MYELOCYTE % Normal [facility] Comment on above: Performed By: #### C TASIA #### [facility] [address] [place] [address] Dr. Gin Chew NRBC Normal [facility] Comment on above: Performed By: #### C TASIA #### [facility] [address] [place] [address] Dr. Gin Chew PLT 372 103/ul Normal 150-450 [facility] Comment on above: Performed By: #### C TASIA #### [facility] [address] [place] [address] Dr. Gin Chew RBC 4.65 106/ul Normal 4.20-5.40 [facility] Comment on above: Performed By: #### C TASIA #### [facility] [address] [place] [address] Dr. Gin Chew RDW 13.0 % Normal 11.0-15.0 [facility] Comment on above: Performed By: #### C TASIA #### [facility] [address] [place] [address] Dr. Gin Chew SEG # 9.06 103/ul Critically high 1.40-6.50 [facility] Comment on above: Performed By: #### C TASIA #### [facility] [address] [place] [address] Dr. Gin Chew SEG % 60.0 % Normal 43.0-75.0 [facility] Comment on above: Performed By: #### C TASIA #### [facility] [address] [place] [address] Dr. Gin Chew WBC 15.1 103/ul Critically high 4.0-11.0 [facility] Comment on above: Performed By: #### C TASIA #### [facility] [address] [place] [address] Dr. Gin Chew LACTATE/LACTIC ACIDon 2022 Lactate [Moles/Vol] 1.2 mmol/L Normal 0.4-2.0 [facility] Comment on above: Performed By: #### B MP #### [facility] [address] [place] [address] Dr. Gin Chew PROF CHEM 8 (BAS METB)on Anion gap [Moles/Vol] 11.4 mmol/L Normal [facility] Comment on above: Performed By: #### A 1C #### [facility] [address] [place] [address] Dr. Gin Chew Calcium [Mass/Vol] 9.2 mg/dL Normal 8.5-10.1 [facility] Comment on above: Performed By: #### A 1C #### [facility] [address] [place] [address] Dr. Gin Chew Chloride [Moles/Vol] 102 mmol/L Normal 98-107 [facility] Comment on above: Performed By: #### A 1C #### [facility] [address] [place] [address] Dr. Gin Chew CO2 [Moles/Vol] 31.3 mmol/L Normal 21.0-32.0 [facility] Comment on above: Performed By: #### A 1C #### [facility] [address] [place] [address] Dr. Gin Chew Creatinine [Mass/Vol] 0.86 mg/dL Normal 0.55-1.02 [facility] Comment on above: Performed By: #### A 1C #### [facility] [address] [address] [address] Gin Chew EGFR-AF NORWEGIAN >60 Normal >=60 [facility] Comment on above: Performed By: #### A 1C #### [facility] [address] [address] [address] Gin Chew EGFR-NON AF NORWEGIAN >60 Normal >=60 [facility] Comment on above: Performed By: #### A 1C #### [facility] [address] [address] [address] Gin Chew Glucose [Mass/Vol] 119 mg/dL Critically high 74-106 [facility] Comment on above: Performed By: #### A 1C #### [facility] [address] [address] [address] Gin Chew Potassium [Moles/Vol] 3.7 mmol/L Normal 3.5-5.1 [facility] Comment on above: Performed By: #### A 1C #### [facility] [address] [address] [address] Gin Chew Sodium [Moles/Vol] 141 mmol/L Normal 136-145 [facility] Comment on above: Performed By: #### A 1C #### [facility] [address] [address] [address] Gin Chew Urea nitrogen [Mass/Vol] 17.0 mg/dL Normal 7.0-18.0 [facility] Comment on above: Performed By: #### A 1C #### [facility] [address] [address] [address] Gin Chew Urea nitrogen/Creatinine [Mass ratio] 19.8 mg/mg Normal [facility] Comment on above: Performed By: #### A 1C #### [facility] [address] [place] [address] Dr. Gin Chew [facility] 8 mm/hr Normal <=30 [facility] Comment on above: Performed By: #### A 1C #### [facility] [address] [address] [address] Gin Chew CBC AUTO DIFFon 08-17-2022 BASO # 0.1 103/ul Normal 0.0-0.1 [facility] Comment on above: Performed By: #### B MP #### [facility] [address] [address] [address] Gin Chew Basophils/100 WBC (Bld) 0.7 % Normal 0.2-2.0 [facility] Comment on above: Performed By: #### B MP #### [facility] [address] [place] [address] Dr. Gin Chew EO # 0.3 103/ul Normal 0.0-0.7 [facility] Comment on above: Performed By: #### B MP #### [facility] [address] [place] [address] Dr. Gin Chew Eosinophils/100 WBC (Bld) 1.9 % Normal 0.9-7.0 [facility] Comment on above: Performed By: #### B MP #### [facility] [address] [place] [address] Dr. Gin Chew Erythrocyte distribution width (RBC) [Ratio] 12.9 % Normal 11.0-15.0 [facility] Comment on above: Performed By: #### B MP #### [facility] [address] [place] [address] Dr. Gin Chew Hematocrit (Bld) [Volume fraction] 42.9 % Normal 36.0-48.0 [facility] Comment on above: Performed By: #### B MP #### [facility] [address] [place] [address] Dr. Gin Chew Hemoglobin (Bld) [Mass/Vol] 14.3 g/dL Normal 12.0-16.0 [facility] Comment on above: Performed By: #### B MP #### [facility] [address] [place] [address] Dr. Gin Chew IG # 0.41 10e3/ul Critically high 0.00-0.03 [facility] Comment on above: Performed By: #### B MP #### [facility] [address] [place] [address] Dr. Gin Chew IG % 2.5 % Critically high 0.0-0.5 [facility] Comment on above: Performed By: #### B MP #### [facility] [address] [place] [address] Dr. Gin Chew LYMPH # 3.5 103/ul Normal 1.2-3.8 [facility] Comment on above: Performed By: #### B MP #### [facility] [address] [place] [address] Dr. Gin Chew Lymphocytes/100 WBC (Bld) 21.5 % Normal 20.5-60.0 [facility] Comment on above: Performed By: #### B MP #### [facility] [address] [place] [address] Dr. Gin Chew MANUAL DIFF REQ NO Normal [facility] Comment on above: Performed By: #### B MP #### [facility] [address] [place] [address] Dr. Gin Chew MCH (RBC) [Entitic mass] 30.9 pg Normal 26.7-34.0 [facility] Comment on above: Performed By: #### B MP #### [facility] [address] [place] [address] Dr. Gin Chew MCHC (RBC) [Mass/Vol] 33.3 g/dL Normal 29.9-35.2 [facility] Comment on above: Performed By: #### B MP #### [facility] [address] [place] [address] Dr. Gin Chew MCV (RBC) [Entitic vol] 92.7 fL Normal 81.0-99.0 [facility] Comment on above: Performed By: #### B MP #### [facility] [address] [place] [address] Dr. Gin Chew MONO # 1.0 103/ul Critically high 0.3-0.8 [facility] Comment on above: Performed By: #### B MP #### [facility] [address] [address] [address] Gin Chew Monocytes/100 WBC (Bld) 6.2 % Normal 1.7-12.0 [facility] Comment on above: Performed By: #### B MP #### [facility] [address] [address] [address] Gin Chew NEUT # 10.9 103/ul Critically high 1.4-6.5 [facility] Comment on above: Performed By: #### B MP #### [facility] [address] [address] [address] Gin Chew Neutrophils/100 WBC (Bld) 67.2 % Normal 43.0-75.0 [facility] Comment on above: Performed By: #### B MP #### [facility] [address] [address] [address] Gin Chew Platelet mean volume (Bld) [Entitic vol] 9.7 fL Normal 9.5-13.5 [facility] Comment on above: Performed By: #### B MP #### [facility] [address] [address] [address] Gin Chew PLT 424 103/ul Normal 150-450 [facility] Comment on above: Performed By: #### B MP #### [facility] [address] [id number] Gin Chew RBC 4.63 106/ul Normal 4.20-5.40 [facility] Comment on above: Performed By: #### B MP #### [facility] [address] [id number] Gin Chew WBC 16.2 103/ul Critically high 4.0-11.0 [facility] Comment on above: Performed By: #### B MP #### [facility] [address] [address] [address] HEAD WO CONon 08-17-2022 CT HEAD WO CON HEAD CT WITHOUT CONTRAST, 08/17/2022 5:03 PM EDT: COMPARISON: None CLINICAL HISTORY: HEADACHE for 3 weeks worse the last 6 to 8 hours. Bilateral ear pressure with cough. TECHNIQUE: 3 mm axial images performed through the head without contrast. 3 mm sagittal and coronal MPR reconstructions performed. Dose reduction techniques were achieved by using automated exposure control and/or adjustment of mA and/or kV according to patient size and/or use of iterative reconstruction technique. FINDINGS: No acute hemorrhage, mass effect, or midline shift. The ventricles are normal in size, shape, and position. Minimal mucosal thickening in the right ethmoid air cells. Fluid seen within the right middle ear. There is near complete opacification of the right mastoid air cells. Trace amount of fluid seen in the base of the left mastoid air cells. No acute osseous abnormality. IMPRESSION: 1. No acute intracranial abnormality identified. 2. Fluid within the right middle ear concerning for otitis media. 3. Large amount of fluid in the right mastoid air cells concerning for acute mastoiditis. Very trace amount of fluid in the left masseter cells may be a subtle sequela of acute and/or chronic mastoiditis. Electronically authenticated by: Lloyd SANDRA Date: 2022-08-17 18:16 Normal [facility]21 SARS-CoV-2 (COVID-19) RNA ARIADNA+probe Ql (Unsp spec) Not detected Normal NOT DETECTED [facility] Comment on above: Result Comment: This test is not yet approved or cleared by the [place] FDA. When there are no FDA-approved or cleared tests available, and other criteria are met, FDA can make tests available under an emergency access mechanism called an Emergency Use Authorization (EUA). The EUA for this test is supported by the [place] of Health and Human Service's (HHS's) declaration that circumstances exist to justify the emergency use of in vitro diagnostics for the detection and/or diagnosis of the virus that causes COVID-19. This EUA will remain in effect (meaning this test can be used) for the duration of the COVID-19 declaration justifying emergency of IVDs, unless it is terminated or revoked by FDA (after which the test may no longer be used). When diagnostic testing is negative, the possibility of a false negative should be considered in the context of a patient's recent exposures and the presence of clinical signs and symptoms consistent with SARS-CoV-2. Performed By: #### A 1C #### [facility] [address] [place] [address] Dr. Gin Chew PROF CHEM 8 (BAS METB)on Anion gap [Moles/Vol] 13.8 mmol/L Normal [facility] Comment on above: Performed By: #### B MP #### [facility] [address] [place] [address] Dr. Gin Chew Calcium [Mass/Vol] 9.0 mg/dL Normal 8.5-10.1 [facility] Comment on above: Performed By: #### B MP #### [facility] [address] [place] [address] Dr. Gin Chew Chloride [Moles/Vol] 102 mmol/L Normal 98-107 [facility] Comment on above: Performed By: #### B MP #### [facility] [address] [place] [address] Dr. Gin Chew CO2 [Moles/Vol] 28.4 mmol/L Normal 21.0-32.0 [facility] Comment on above: Performed By: #### B MP #### [facility] [address] [place] [address] Dr. Gin Chew Creatinine [Mass/Vol] 0.93 mg/dL Normal 0.55-1.02 [facility] Comment on above: Performed By: #### B MP #### [facility] [address] [place] [address] Dr. Gin Chew EGFR-AF NORWEGIAN >60 Normal >=60 [facility] Comment on above: Performed By: #### B MP #### [facility] [address] [place] [address] Dr. Gin Chew EGFR-NON AF NORWEGIAN >60 Normal >=60 [facility] Comment on above: Performed By: #### B MP #### [facility] [address] [place] [address] Dr. Gin Chew Glucose [Mass/Vol] 133 mg/dL Critically high 74-106 [facility] Comment on above: Performed By: #### B MP #### [facility] [address] [address] [address] Gin Chew Potassium [Moles/Vol] 4.2 mmol/L Normal 3.5-5.1 [facility] Comment on above: Performed By: #### B MP #### [facility] [address] [address] [address] Gin Chew Sodium [Moles/Vol] 140 mmol/L Normal 136-145 [facility] Comment on above: Performed By: #### B MP #### [facility] [address] [address] [address] Gin Chew Urea nitrogen [Mass/Vol] 20.0 mg/dL Critically high 7.0-18.0 [facility] Comment on above: Performed By: #### B MP #### [facility] [address] [place] [address] Dr. Gin Chew Urea nitrogen/Creatinine [Mass ratio] 21.5 mg/mg Normal [facility] Comment on above: Performed By: #### B MP #### [facility] [address] [place] [address] Dr. Gin Chew SYMPTOMATIC COVID-19 ANTIGEN on 08-17-2022 EUA Statement SEE BELOW Normal [facility] Comment on above: Result Comment: This test has not been FDA cleared or approved, but has been authorized by the FDA under an Emergency Use Authorization (EUA) for use by authorized laboratories certified under CLIA that meet the requirements to perform moderate or high complexity testing. This test has been authorized only for the detection of proteins from SARS-CoV-2, not for any other viruses or pathogens. The emergency use of this test is authorized for the duration of the declaration that circumstances exist justifying the authorization of emergency use of in vitro diagnostic tests for detection and/or diagnosis of Covid-19 under section 564(b)(1) of the Act, 21 U.S.C. 360bbb-3(b)(1), unless the declaration is terminated or authorization is revoked sooner. Performed By: #### A 1C #### [facility] [address] [place] [address] Dr. Gin Chew SARS-CoV-2 (COVID-19) RNA ARIADNA+probe Ql (Unsp spec) Negative Normal NEGATIVE [facility] Comment on above: Performed By: #### A 1C #### [facility] [address] [place] [address] Dr. Gin Chew CBC AUTO DIFFon 07-10-2022 BASO # 0.1 103/ul Normal 0.0-0.1 [facility] Comment on above: Performed By: #### B MP #### [facility] [address] [place] [address] Dr. Gin Chew Basophils/100 WBC (Bld) 1.0 % Normal 0.2-2.0 [facility] Comment on above: Performed By: #### B MP #### [facility] [address] [place] [address] Dr. Gin Chew EO # 0.5 103/ul Normal 0.0-0.7 [facility] Comment on above: Performed By: #### B MP #### [facility] [address] [place] [address] Dr. Gin Chew Eosinophils/100 WBC (Bld) 7.1 % Critically high 0.9-7.0 [facility] Comment on above: Performed By: #### B MP #### [facility] [address] [place] [address] Dr. Gin Chew Erythrocyte distribution width (RBC) [Ratio] 12.3 % Normal 11.0-15.0 [facility] Comment on above: Performed By: #### B MP #### [facility] [address] [place] [address] Dr. Gin Chew Hematocrit (Bld) [Volume fraction] 39.6 % Normal 36.0-48.0 [facility] Comment on above: Performed By: #### B MP #### [facility] [address] [place] [address] Dr. Gin Chew Hemoglobin (Bld) [Mass/Vol] 13.5 g/dL Normal 12.0-16.0 [facility] Comment on above: Performed By: #### B MP #### [facility] [address] [place] [address] Dr. Gin Chew IG # 0.03 10e3/ul Normal 0.00-0.03 [facility] Comment on above: Performed By: #### B MP #### [facility] [address] [place] [address] Dr. Gin Chew IG % 0.4 % Normal 0.0-0.5 [facility] Comment on above: Performed By: #### B MP #### [facility] [address] [place] [address] Dr. Gin Chew LYMPH # 2.4 103/ul Normal 1.2-3.8 [facility] Comment on above: Performed By: #### B MP #### [facility] [address] [place] [address] Dr. Gin Chew Lymphocytes/100 WBC (Bld) 33.7 % Normal 20.5-60.0 [facility] Comment on above: Performed By: #### B MP #### [facility] [address] [place] [address] Dr. Gin Chew MANUAL DIFF REQ NO Normal [facility] Comment on above: Performed By: #### B MP #### [facility] [address] [place] [address] Dr. Gin Chew MCH (RBC) [Entitic mass] 30.8 pg Normal 26.7-34.0 [facility] Comment on above: Performed By: #### B MP #### [facility] [address] [place] [address] Dr. Gin Chew MCHC (RBC) [Mass/Vol] 34.1 g/dL Normal 29.9-35.2 [facility] Comment on above: Performed By: #### B MP #### [facility] [address] [place] [address] Dr. Gin Chew MCV (RBC) [Entitic vol] 90.2 fL Normal 81.0-99.0 [facility] Comment on above: Performed By: #### B MP #### [facility] [address] [place] [address] Dr. Gin Chew MONO # 0.5 103/ul Normal 0.3-0.8 [facility] Comment on above: Performed By: #### B MP #### [facility] [address] [place] [address] Dr. Gin Chew Monocytes/100 WBC (Bld) 6.7 % Normal 1.7-12.0 [facility] Comment on above: Performed By: #### B MP #### [facility] [address] [place] [address] Dr. Gin Chew NEUT # 3.6 103/ul Normal 1.4-6.5 [facility] Comment on above: Performed By: #### B MP #### [facility] [address] [place] [address] Dr. Gin Chew Neutrophils/100 WBC (Bld) 51.1 % Normal 43.0-75.0 [facility] Comment on above: Performed By: #### B MP #### [facility] [address] [place] [address] Dr. Gin Chew Platelet mean volume (Bld) [Entitic vol] 9.6 fL Normal 9.5-13.5 [facility] Comment on above: Performed By: #### B MP #### [facility] [address] [place] [address] Dr. Gin Chew PLT 337 103/ul Normal 150-450 [facility] Comment on above: Performed By: #### B MP #### [facility] [address] [place] [address] Dr. Gin Chew RBC 4.39 106/ul Normal 4.20-5.40 [facility] Comment on above: Performed By: #### B MP #### [facility] [address] [place] [address] Dr. Gin Chew WBC 7.0 103/ul Normal 4.0-11.0 [facility] Comment on above: Performed By: #### B MP #### [facility] [address] [place] [address] Dr. Gin Chew CULTURE URINEon 07-10-2022 CULTURE URINE Culture Observations : MODERATE GROWTH OF MIXED GENITAL ELOINA. NO POTENTIAL PATHOGENS SEEN. Normal [facility] Comment on above: Performed By: #### A 1C #### [facility] [address] [place] [address] Dr. Gin Chew FREE T3on 07-10-2022 FREE T3 2.10 pg/mlL Critically low 2.18-3.98 [facility] Comment on above: Performed By: #### F T3, CMP, LIPID, TSH #### [facility] [address] [address] [address] Gin Chew FREE T4on 07-10-2022 Free T4 [Mass/Vol] 1.56 ng/dL Critically high 0.76-1.46 [facility] Comment on above: Performed By: #### F T4, VITAD #### [facility] [address] [place] [address] Dr. Gin Chew GLYCOHEMOGLOBIN A1Con 2022 ADA RECOMMENDATION SEE BELOW Normal [facility] Comment on above: Result Comment: ADA RECOMMENDED LIMIT 4.0 - 6.0 ADA THERAPEUTIC TARGET < 7.0 ACTION SUGGESTED > 7.0 Performed By: #### A 1C #### [facility] [address] [place] [address] Dr. Gin Chew Glucose [Mass/Vol] 134 mg/dL Normal [facility] Comment on above: Performed By: #### A 1C #### [facility] [address] [place] [address] Dr. Gin Chew HbA1c (Bld) [Mass fraction] 6.3 % Critically high 4.5-6.2 [facility] Comment on above: Performed By: #### A 1C #### [facility] [address] [place] [address] Dr. Gin Chew LIPID PROFILEon 07-10-2022 CHOL-HDL RATIO NORM SEE BELOW Normal [facility] Comment on above: Result Comment: 3.3 - 4.4 LOW RISK 4.4 - 7.1 AVERAGE RISK 7.1 - 11.0 MODERATE RISK >11.0 HIGH RISK Performed By: #### F T3, CMP, LIPID, TSH #### [facility] [address] [address] [address] Gin Chew Cholesterol [Mass/Vol] 190 mg/dL Normal <=200 [facility] Comment on above: Performed By: #### F T3, CMP, LIPID, TSH #### [facility] [address] [address] [address] Gin Chew Cholesterol in HDL [Mass/Vol] 76 mg/dL Critically high 40-60 [facility] Comment on above: Performed By: #### F T3, CMP, LIPID, TSH #### [facility] [address] [address] [address] Gin Chew Cholesterol in LDL [Mass/Vol] 98.4 mg/dL Normal [facility] Comment on above: Performed By: #### F T3, CMP, LIPID, TSH #### [facility] [address] [address] [address] Gin Chew Cholesterol.total/Cho lesterol in HDL [Mass ratio] 2.5 {ratio} Normal [facility] Comment on above: Performed By: #### F T3, CMP, LIPID, TSH #### [facility] [address] [address] [address] Gin Chew HDL NORMAL > or = 60 mg/dl - LO W CARDIOVASCULAR RISK <40 mg/dl - HIGH CARDIOVASCULAR RISK Normal [facility] Comment on above: Performed By: #### F T3, CMP, LIPID, TSH #### [facility] [address] [address] [address] Gin Chew LDL CALC NORMAL SEE BELOW Normal [facility] Comment on above: Result Comment: <100 mg/dl OPTIMAL 100 - 129 mg/dl NEAR OR ABOVE OPTIMAL 130 - 159 mg/dl BORDERLINE HIGH 160 - 189 mg/dl HIGH >190 mg/dl VERY HIGH Performed By: #### F T3, CMP, LIPID, TSH #### [facility] [address] [address] [address] Gin Chew Triglyceride [Mass/Vol] 78 mg/dL Normal <=150 [facility] Comment on above: Performed By: #### F T3, CMP, LIPID, TSH #### [facility] [address] [address] [address] Gin Chew VLDL CALC 15.6 mg/dL Normal [facility] Comment on above: Performed By: #### F T3, CMP, LIPID, TSH #### [facility] [address] [address] [address] Gin Chew MICROALBUMIN, RAND URon 06-22 0 mALB 1.7 mg/L Normal <=30.0 [facility] Comment on above: Performed By: #### A 1C #### [facility] [address] [address] [address] Gin Chew PROF 14(COMP METB)on 023 Albumin [Mass/Vol] 4.0 g/dL Normal 3.4-5.0 [facility] Comment on above: Performed By: #### F T3, CMP, LIPID, TSH #### [facility] [address] [address] [address] Gin Chew Albumin/Globulin [Mass ratio] 1.2 {ratio} Normal [facility] Comment on above: Performed By: #### F T3, CMP, LIPID, TSH #### [facility] [address] [address] [address] Gin Chew ALP [Catalytic activity/Vol] 67 U/L Normal 46-116 [facility] Comment on above: Performed By: #### F T3, CMP, LIPID, TSH #### [facility] [address] [address] [address] Gin Chew ALT [Catalytic activity/Vol] 25 U/L Normal 14-59 [facility] Comment on above: Performed By: #### F T3, CMP, LIPID, TSH #### [facility] [address] [address] [address] Gin Chew Anion gap [Moles/Vol] 12.2 mmol/L Normal [facility] Comment on above: Performed By: #### F T3, CMP, LIPID, TSH #### [facility] [address] [address] [address] Gin Chew AST [Catalytic activity/Vol] 20 U/L Normal 15-37 [facility] Comment on above: Performed By: #### F T3, CMP, LIPID, TSH #### [facility] [address] [address] [address] Gin Chew Bilirubin [Mass/Vol] 0.4 mg/dL Normal 0.2-1.0 [facility] Comment on above: Performed By: #### F T3, CMP, LIPID, TSH #### [facility] [address] [place] [address] Dr. Gin Chew Calcium [Mass/Vol] 9.6 mg/dL Normal 8.5-10.1 [facility] Comment on above: Performed By: #### F T3, CMP, LIPID, TSH #### [facility] [address] [place] [address] Dr. Gin Chew Chloride [Moles/Vol] 103 mmol/L Normal 98-107 [facility] Comment on above: Performed By: #### F T3, CMP, LIPID, TSH #### [facility] [address] [place] [address] Dr. Gin Chew CO2 [Moles/Vol] 28.1 mmol/L Normal 21.0-32.0 [facility] Comment on above: Performed By: #### F T3, CMP, LIPID, TSH #### [facility] [address] [place] [address] Dr. Gin Chew Creatinine [Mass/Vol] 0.64 mg/dL Normal 0.55-1.02 [facility] Comment on above: Performed By: #### F T3, CMP, LIPID, TSH #### [facility] [address] [place] [address] Dr. Gin Chew EGFR-AF NORWEGIAN >60 Normal >=60 [facility] Comment on above: Performed By: #### F T3, CMP, LIPID, TSH #### [facility] [address] [place] [address] Dr. Gin Chew EGFR-NON AF NORWEGIAN >60 Normal >=60 [facility] Comment on above: Performed By: #### F T3, CMP, LIPID, TSH #### [facility] [address] [place] [address] Dr. Gin Chew Globulin (S) [Mass/Vol] 3.3 g/dL Normal [facility] Comment on above: Performed By: #### F T3, CMP, LIPID, TSH #### [facility] [address] [address] [address] Gin Chew Glucose [Mass/Vol] 98 mg/dL Normal 74-106 [facility] Comment on above: Performed By: #### F T3, CMP, LIPID, TSH #### [facility] [address] [address] [address] Gin Chew Potassium [Moles/Vol] 4.3 mmol/L Normal 3.5-5.1 [facility] Comment on above: Performed By: #### F T3, CMP, LIPID, TSH #### [facility] [address] [address] [address] Gin Chew Protein [Mass/Vol] 7.3 g/dL Normal 6.4-8.2 [facility] Comment on above: Performed By: #### F T3, CMP, LIPID, TSH #### [facility] [address] [address] [address] Gin Chew Sodium [Moles/Vol] 139 mmol/L Normal 136-145 [facility] Comment on above: Performed By: #### F T3, CMP, LIPID, TSH #### [facility] [address] [address] [address] Gin Chew Urea nitrogen [Mass/Vol] 21.0 mg/dL Critically high 7.0-18.0 [facility] Comment on above: Performed By: #### F T3, CMP, LIPID, TSH #### [facility] [address] [address] [address] Gin Chew Urea nitrogen/Creatinine [Mass ratio] 32.8 mg/mg Normal [facility] Comment on above: Performed By: #### F T3, CMP, LIPID, TSH #### [facility] [address] [address] [address] Gin Chew TSHon 07-10-2022 TSH 2.200 uIU/mL Normal 0.358-3.740 [facility] Comment on above: Performed By: #### F T3, CMP, LIPID, TSH #### [facility] [address] [place] [address] Dr. Gin Chew UA RANDOM W/MICROSCOPICon BACTERIA NONE SEEN Normal NONE SEEN [facility] Comment on above: Performed By: #### F T3, CMP, LIPID, TSH #### [facility] [address] [place] [address] Dr. Gin Chew Bilirubin Ql (U) Negative Normal NEGATIVE [facility] Comment on above: Performed By: #### F T3, CMP, LIPID, TSH #### [facility] [address] [place] [address] Dr. Gin Chew CAST NONE SEEN Normal NONE SEEN [facility] Comment on above: Performed By: #### F T3, CMP, LIPID, TSH #### [facility] [address] [place] [address] Dr. Gin Chew Clarity (U) CLEAR Normal CLEAR [facility] Comment on above: Performed By: #### F T3, CMP, LIPID, TSH #### [facility] [address] [place] [address] Dr. Gin Chew Color (U) LT. YELLOW Normal YELLOW [facility] Comment on above: Performed By: #### F T3, CMP, LIPID, TSH #### [facility] [address] [place] [address] Dr. Gin Chew Crystals LM Nom (Urine sed) NONE SEEN Normal NONE SEEN [facility] Comment on above: Performed By: #### F T3, CMP, LIPID, TSH #### [facility] [address] [place] [address] Dr. Gin Chew Epithelial cells LM Ql (Urine sed) FEW Abnormal NONE SEEN /RARE [facility] Comment on above: Performed By: #### F T3, CMP, LIPID, TSH #### [facility] [address] [place] [address] Dr. Gin Chew Glucose Ql (U) Negative Normal NEGATIVE [facility] Comment on above: Performed By: #### F T3, CMP, LIPID, TSH #### [facility] [address] [address] [address] Gin Chew Hemoglobin Ql (U) Negative Normal NEGATIVE [facility] Comment on above: Performed By: #### F T3, CMP, LIPID, TSH #### [facility] [address] [address] [address] Gin Chew Ketones Ql (U) Negative Normal NEGATIVE [facility] Comment on above: Performed By: #### F T3, CMP, LIPID, TSH #### [facility] [address] [address] [address] Gin Chew LEUKOCYTES Negative Normal NEGATIVE [facility] Comment on above: Performed By: #### F T3, CMP, LIPID, TSH #### [facility] [address] [place] [address] Dr. Gin Chew MUCOUS NONE SEEN Normal NONE SEEN [facility] Comment on above: Performed By: #### F T3, CMP, LIPID, TSH #### [facility] [address] [address] [address] Gin Chew Nitrite Ql (U) Negative Normal NEGATIVE [facility] Comment on above: Performed By: #### F T3, CMP, LIPID, TSH #### [facility] [address] [address] [address] Gin Chew pH (U) 5.5 [pH] Normal 5-9 [facility] Comment on above: Performed By: #### F T3, CMP, LIPID, TSH #### [facility] [address] [address] [address] Gin Chew RBC NONE SEEN Abnormal 0-2 [facility] Comment on above: Performed By: #### F T3, CMP, LIPID, TSH #### [facility] [address] [address] [address] Gin Chew SPEC GRAVITY 1.025 Normal 1.005-<=1.025 [facility] Comment on above: Performed By: #### F T3, CMP, LIPID, TSH #### [facility] [address] [address] [address] Gin Chew UA PROTEIN Negative Normal NEGATIVE/ TRACE [facility] Comment on above: Performed By: #### F T3, CMP, LIPID, TSH #### [facility] [address] [address] [address] Gin Chew Urobilinogen Qn (U) 0.2 {David'U}/dL Normal 0.2 - 1. 0 [facility] Comment on above: Performed By: #### F T3, CMP, LIPID, TSH #### [facility] [address] [address] [address] Gin Chew WBC NONE SEEN Normal NONE SEEN [facility] Comment on above: Performed By: #### F T3, CMP, LIPID, TSH #### [facility] [address] [place] [address] Dr. Gin Chew VITAMIN D 25 OHon 07-10-2022 VIT D 25-OH 30.1 ng/mL Normal [facility] Comment on above: Performed By: #### F T4, VITAD #### [facility] [address] [place] [address] Dr. Gin Chew VIT D RANGES SEE BELOW Normal [facility] Comment on above: Result Comment: <20 ng/mL Vit D deficient 20 - <30 ng/mL Vit D insufficient 30 - 100 ng/mL Vit D sufficient >100 ng/mL Potential Toxicity Performed By: #### F T4, VITAD #### [facility] [address] [place] [address] Dr. Gin Chew FREE T3on 04-05-2022 FREE T3 2.83 pg/mlL Normal 2.18-3.98 [facility] Comment on above: Performed By: #### B MP #### [facility] [address] [place] [address] Dr. Gin Chew FREE T4on 04-05-2022 Free T4 [Mass/Vol] 1.74 ng/dL Critically high 0.76-1.46 [facility] Comment on above: Performed By: #### F T4 #### [facility] [address] [place] [address] Dr. Gin Chew TSHon 04-05-2022 TSH 0.235 uIU/mL Critically low 0.358-3.740 [facility] Comment on above: Performed By: #### B #### [facility] [address] [place] [address] Dr. Gin Chew XR CHEST 2 Von 11-29-2021 XR CHEST 2 V EXAMINATION: XR CHES T 2 V HISTORY: Cough COMPARISON: 09/28/2021 TECHNIQUE: PA and lateral FINDINGS: LUNGS: No significant pulmonary parenchymal abnormalities. VASCULATURE: No increased pulmonary vasculature. PLEURA: No pneumothorax, effusion, or pleural thickening. CARDIAC: No cardiomegaly or cardiac silhouette abnormality. MEDIASTINUM: No visible mass or adenopathy. BONES: Normal. No fracture or visible bony lesion. OTHER: Negative. IMPRESSION: No acute disease. Electronically authenticated by: JEFF PATHAK Date: 2021-11-29 21:03 Normal [facility] CNPNon 10-13-2021 CNPN Telephone (ENDOSO) CANELO PATHAK ([id number]) 1965 F Date Time Provider Department 10/13/21 ANILA JIMENEZ During your visit today, we recorded the following information about you: Matilda Almeida 10/18/2021 11:02 AM Signed Patient scheduled for a follow up on 12/19/21. Allergies As of Date: 10/13/2021 Noted Allergy Reaction BIAXIN XL (CLARITHROMYCIN) 05/16/2007 9 - Itching Comments: nerve difficulty CEFTIN (CEFUROXIME AXETIL) 05/16/2007 9 - Itching Comments: nerve difficulty FLUCONAZOLE 06/16/2021 9 - Itching LEVAQUIN (LEVOFLOXACIN) 05/16/2007 9 - Itching Comments: nerve difficulty LORAZEPAM 06/16/2021 14 - Other: See Comments METFORMIN 06/16/2021 14 - Other: See Comments TEQUIN (GATIFLOXACIN) 05/16/2007 9 - Itching Comments: nerve difficulty Date Reviewed: 10/13/2021 Reviewed by: Anila Jimenez APRN.SHEEP STICKER - Fully Assessed Reason for Visit: Appointment [186] Prescriptions as of 10/18/2021 - levothyroxine (SYNTHROID) 200 mcg tablet Take one tablet daily. - venlafaxine ER (EFFEXOR XR) 37.5 mg 24 hr capsule take one a day, if tolerated after two weeks increase to two - metFORMIN ER (GLUCOPHAGE XR) 500 mg 24 hr tablet Take 2 tablets by mouth twice daily. - cyclobenzaprine (FLEXERIL) 10 mg tablet - Cholecalciferol, Vitamin D3, 125 mcg (5,000 unit) cap - montelukast (SINGULAIR) 10 mg tablet Take 10 mg by mouth daily at bedtime. - MULTIVIT-MINERALS/GEOVANI ALEXSANDRA GLUC (CENTRAM-CARE ORAL) Take by mouth twice daily. - esomeprazole mag trihydrate(NEXIUM 40 MG CAP) Take one(1) capsule daily. - mometasone furoate(NASONEX 50 MCG/ACTUATION SPRAY) [employer] twice in each nostril once daily. - cetirizine hcl(ZYRTEC 10 MG TAB) Take one(1) tablet daily. - fluticasone/salmetero l(ADVAIR DISKUS 250 MCG-50 MCG/DOSE FOR INHALATION) Take one(1) inhalation twice daily; rinse and gargle mouth with water after each use. 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] 09/20/2015 Metabolic syndrome [E88.81] 09/20/2015 Sensorineural hearing loss, bilateral [H90.3] 12/16/2018 Type 2 diabetes mellitus with hyperglycemia, wi*10/11/2021 Encounter Status:Closed by ANILA JIMENEZ on 10/13/21 Normal [facility] CBC W Auto Differential pane l (Bld)on 10-07-2021 Basophils (Bld) [#/Vol] 0.07 10*3/uL Normal <0.11 [facility] Comment on above: Order Comment: Speci men Type: BLOOD SPECIMENOrdering Facility: [facility] Address: [address] [place] [address] Performed By: #### C MP, HBA1C, FREET3, FT4, TSH #### [place] [phone] Basophils/100 WBC (Bld) 0.7 % Normal [facility] Comment on above: Order Comment: Speci men Type: BLOOD SPECIMENOrdering Facility: [facility] Address: [address] [place] [address] Performed By: #### C MP, HBA1C, FREET3, FT4, TSH #### [address] [phone] Differential cell count method Nom (Bld) Auto Normal [facility] Comment on above: Order Comment: Speci men Type: BLOOD SPECIMENOrdering Facility: [facility] Address: [address] [place] [address] Performed By: #### C MP, HBA1C, FREET3, FT4, TSH #### [place] [phone] Eosinophils (Bld) [#/Vol] 0.29 10*3/uL Normal <0.46 [facility] Comment on above: Order Comment: Speci men Type: BLOOD SPECIMENOrdering Facility: [facility] Address: [address] [place] [address] Performed By: #### C MP, HBA1C, FREET3, FT4, TSH #### [place] [phone] Eosinophils/100 WBC (Bld) 3.0 % Normal [facility] Comment on above: Order Comment: Speci men Type: BLOOD SPECIMENOrdering Facility: [facility] Address: [address] [place] [address] Performed By: #### C MP, HBA1C, FREET3, FT4, TSH #### [address] [phone] Erythrocyte distribution width (RBC) [Ratio] 12.3 % Normal 11.5-15.0 [facility] Comment on above: Order Comment: Speci men Type: BLOOD SPECIMENOrdering Facility: [facility] Address: [address] [place] [address] Performed By: #### C MP, HBA1C, FREET3, FT4, TSH #### [place] [phone] Hematocrit (Bld) [Volume fraction] 43.4 % Normal 36.0-46.0 [facility] Comment on above: Order Comment: Speci men Type: BLOOD SPECIMENOrdering Facility: [facility] Address: [address] [place] [address] Performed By: #### C MP, HBA1C, FREET3, FT4, TSH #### [place] [phone] Hemoglobin (Bld) [Mass/Vol] 14.5 g/dL Normal 11.5-15.5 [facility] Comment on above: Order Comment: Speci men Type: BLOOD SPECIMENOrdering Facility: [facility] Address: [address] [place] [address] Performed By: #### C MP, HBA1C, FREET3, FT4, TSH #### [place] [phone] IMMATURE GRAN % 0.4 % Normal [facility] Comment on above: Order Comment: Speci men Type: BLOOD SPECIMENOrdering Facility: [facility] Address: [address] [place] [address] Performed By: #### C MP, HBA1C, FREET3, FT4, TSH #### [place] [phone] IMMATURE GRAN ABS 0.04 k/uL Normal <0.10 [facility] Comment on above: Order Comment: Speci men Type: BLOOD SPECIMENOrdering Facility: [facility] Address: [address] [place] [address] Performed By: #### C MP, HBA1C, FREET3, FT4, TSH #### [place] [phone] Lymphocytes (Bld) [#/Vol] 2.21 10*3/uL Normal 1.00-4.00 [facility] Comment on above: Order Comment: Speci men Type: BLOOD SPECIMENOrdering Facility: [facility] Address: [address] [place] [address] Performed By: #### C MP, HBA1C, FREET3, FT4, TSH #### [place] [phone] Lymphocytes/100 WBC (Bld) 22.6 % Normal [facility] Comment on above: Order Comment: Speci men Type: BLOOD SPECIMENOrdering Facility: [facility] Address: [address] [place] [address] Performed By: #### C MP, HBA1C, FREET3, FT4, TSH #### [place] [phone] MCH (RBC) [Entitic mass] 30.7 pg Normal 26.0-34.0 [facility] Comment on above: Order Comment: Speci men Type: BLOOD SPECIMENOrdering Facility: [facility] Address: [address] [place], [place] [id number] Performed By: #### C MP, HBA1C, FREET3, FT4, TSH #### [place] [phone] MCHC (RBC) [Mass/Vol] 33.4 g/dL Normal 30.5-36.0 [facility] Comment on above: Order Comment: Speci men Type: BLOOD SPECIMENOrdering Facility: [facility] Address: [address] [place] [address] Performed By: #### C MP, HBA1C, FREET3, FT4, TSH #### [place] [id number] [place] [phone] MCV (RBC) [Entitic vol] 91.9 fL Normal 80.0-100.0 [facility] Comment on above: Order Comment: Speci men Type: BLOOD SPECIMENOrdering Facility: [facility] Address: [address] [place] [address] Performed By: #### C MP, HBA1C, FREET3, FT4, TSH #### [place] [phone] Monocytes (Bld) [#/Vol] 0.60 10*3/uL Normal <0.87 [facility] Comment on above: Order Comment: Speci men Type: BLOOD SPECIMENOrdering Facility: [facility] Address: [address] [place] [address] Performed By: #### C MP, HBA1C, FREET3, FT4, TSH #### [place] [phone] Monocytes/100 WBC (Bld) 6.1 % Normal [facility] Comment on above: Order Comment: Speci men Type: BLOOD SPECIMENOrdering Facility: [facility] Address: [address] [place] [address] Performed By: #### C MP, HBA1C, FREET3, FT4, TSH #### [place] [phone] Neutrophils (Bld) [#/Vol] 6.57 10*3/uL Normal 1.45-7.50 [facility] Comment on above: Order Comment: Speci men Type: BLOOD SPECIMENOrdering Facility: [facility] Address: [address] [place] [address] Performed By: #### C MP, HBA1C, FREET3, FT4, TSH #### [place] [phone] Neutrophils/100 WBC (Bld) 67.2 % Normal [facility] Comment on above: Order Comment: Speci men Type: BLOOD SPECIMENOrdering Facility: [facility] Address: [address] [place], [place] [id number] Performed By: #### C MP, HBA1C, FREET3, FT4, TSH #### [place] [phone] Nucleated RBC (Bld) [#/Vol] 10*3/uL Normal <0.01 [facility] Comment on above: Order Comment: Speci men Type: BLOOD SPECIMENOrdering Facility: [facility] Address: [address] [place], [place] [id number] Performed By: #### C MP, HBA1C, FREET3, FT4, TSH #### [place] [phone] Nucleated RBC/100 WBC (Bld) [Ratio] 0.0 /100 WBC Normal [facility] Comment on above: Order Comment: Speci men Type: BLOOD SPECIMENOrdering Facility: [facility] Address: [address] [place], [place] [id number] Performed By: #### C MP, HBA1C, FREET3, FT4, TSH #### [place] [id number] Platelet mean volume (Bld) [Entitic vol] 10.4 fL Normal 9.0-12.7 [facility] Comment on above: Order Comment: Speci men Type: BLOOD SPECIMENOrdering Facility: [facility] Address: [address] [place], [place] [id number] Performed By: #### C MP, HBA1C, FREET3, FT4, TSH #### [place] [id number] Platelets (Bld) [#/Vol] 371 10*3/uL Normal 150-400 [facility] Comment on above: Order Comment: Speci men Type: BLOOD SPECIMENOrdering Facility: [facility] Address: [address] [place], [place] [id number] Performed By: #### C MP, HBA1C, FREET3, FT4, TSH #### [facility] [address] [place] [address] RBC (Bld) [#/Vol] 4.72 10*6/uL Normal 3.90-5.20 [facility] Comment on above: Order Comment: Speci men Type: BLOOD SPECIMENOrdering Facility: [facility] Address: [address] [place] [address] Performed By: #### C MP, HBA1C, FREET3, FT4, TSH #### [facility] [address] [place] [phone] WBC (Bld) [#/Vol] 9.78 10*3/uL Normal 3.70-11.00 [facility] Comment on above: Order Comment: Speci men Type: BLOOD SPECIMENOrdering Facility: [facility] Address: [address] [place] [address] Performed By: #### C MP, HBA1C, FREET3, FT4, TSH #### [facility] [address] [place] [address] Abs Immature Gran 0.04 k/uL <0.10 k/uL [facility] Basophils (Bld) [#/Vol] 0.07 10*3/uL <0.11 k/uL [facility] Basophils/100 WBC (Bld) 0.7 % [facility] Differential cell count method Nom (Bld) Auto [facility] Eosinophils (Bld) [#/Vol] 0.29 10*3/uL <0.46 k/uL [facility] Eosinophils/100 WBC (Bld) 3.0 % [facility] Erythrocyte distribution width (RBC) [Ratio] 12.3 % 11.5 - 15.0 % [facility] Hematocrit (Bld) [Volume fraction] 43.4 % 36.0 - 46.0 % [facility] Hemoglobin (Bld) [Mass/Vol] 14.5 g/dL 11.5 - 15.5 g/dL [facility] Immature Gran % 0.4 % [facility] Lymphocytes (Bld) [#/Vol] 2.21 10*3/uL 1.00 - 4.00 k/uL [facility] Lymphocytes/100 WBC (Bld) 22.6 % [facility] MCH (RBC) [Entitic mass] 30.7 pg 26.0 - 34.0 pg [facility] MCHC (RBC) [Mass/Vol] 33.4 g/dL 30.5 - 36.0 g/dL [facility] MCV (RBC) [Entitic vol] 91.9 fL 80.0 - 100.0 fL [facility] Monocytes (Bld) [#/Vol] 0.60 10*3/uL <0.87 k/uL [facility] Monocytes/100 WBC (Bld) 6.1 % [facility] Neutrophils (Bld) [#/Vol] 6.57 10*3/uL 1.45 - 7.50 k/uL [facility] Neutrophils/100 WBC (Bld) 67.2 % [facility] Nucleated RBC (Bld) [#/Vol] 10*3/uL <0.01 k/uL [facility] Nucleated RBC/100 WBC (Bld) [Ratio] 0.0 /100 WBC [facility] Platelet mean volume (Bld) [Entitic vol] 10.4 fL 9.0 - 12.7 fL [facility] Platelets (Bld) [#/Vol] 371 10*3/uL 150 - 400 k/uL [facility] RBC (Bld) [#/Vol] 4.72 10*6/uL 3.90 - 5.2 0 m/uL [facility] WBC (Bld) [#/Vol] 9.78 10*3/uL 3.70 - 11. 00 k/uL [facility] CNOVon 10-07-2021 CNOV Office Visit (RHEUMN ) CANELO PATHAK ([id number]) 1965 F Date Time Provider Department 10/07/21 2:00 PM LEENA SEYMOUR During your visit today, we recorded the following information about you: Pulse Blood pressure Weight 94/minute 155/93 125.8 kg Leena Seymour MD 10/07/2021 2:42 PM Signed Plan: Fibromyalgia exercise discussed. Will do a sleep study at home. brief patient health questionnaire = 7 c/w mild deprssion. counseling has really helped. anxiety no ? will give prozac 10 mg daily will exercise and will do a sleep study. ? rtc in 3-4 months. ? Leena Seymour MD ? October 07, 2021 She is not doing well, she tried to exercise, after histerectomy 11 years ago, her pain increased, was on hrt, they took her off for an unknown liver issue. continued to deal with everything. past nov was more tired, was very sleepy. up to 16 hrs a day. she had a couple of uris, was given antb and pred and felt great. She wonders what else was going on. Her pcp put her on low dose , raised her blood sugars and stopped it. She is exhausted, fatigued. Gets rashes and gets creams. headaches recently was iin er for chest pain jaw pain. sees neuro. sicca oral breathing has asthma. IBS has diarrhea almost every day. lightheaded yes depresson yes, anxiety yes. exercise no No past medical history on file. No past surgical history on file. Social History Tobacco Use - Smoking status: Never Smoker - Smokeless tobacco: Never Used Substance Use Topics - Alcohol use: Not on file - Drug use: Not on file No family history on file. Current Outpatient Medications Medication Sig - metFORMIN ER (GLUCOPHAGE XR) 500 mg 24 hr tablet Take 2 tablets by mouth twice daily. - levothyroxine (SYNTHROID) 112 mcg tablet Take 2 tablets by mouth once daily. - cyclobenzaprine (FLEXERIL) 10 mg tablet - Cholecalciferol, Vitamin D3, 125 mcg (5,000 unit) cap - Vitamin D Encampment ([employer] for [employer]) Take 1 capsule by mouth daily with food. - montelukast (SINGULAIR) 10 mg tablet Take 10 mg by mouth daily at bedtime. - MULTIVIT-MINERALS/GEOVANI ALEXSANDRA GLUC (CENTRAM-CARE ORAL) Take by mouth twice daily. - esomeprazole mag trihydrate(NEXIUM 40 MG CAP) Take one(1) capsule daily. - mometasone furoate(NASONEX 50 MCG/ACTUATION SPRAY) [employer] twice in each nostril once daily. - cetirizine hcl(ZYRTEC 10 MG TAB) Take one(1) tablet daily. - fluticasone/salmetero l(ADVAIR DISKUS 250 MCG-50 MCG/DOSE FOR INHALATION) Take one(1) inhalation twice daily; rinse and gargle mouth with water after each use. No current facility-administered medications for this visit. Answers for HPI/ROS submitted by the patient on 10/06/2021 Fever : No Recent Unintentional Weight Change: Yes Eye Pain: No Eye Redness: No Vision Disturbance: Yes Eye Dryness: No Nose Bleeds: No Sores in your Mouth: No Trouble Swallowing: No Dry Mouth: No Chest Pain: Yes Leg Swelling: Yes A Cough: Yes Blood when you Cough: No Shortness of Breath: Yes Pain with Breathing: No Heartburn: Yes Abdominal Pain: Yes Diarrhea: Yes Black Tarry Stools: No Blood in Urine: No Pain or Burning with Urination: Yes Joint Pain or Stiffness: Yes Muscle Weakness: Yes Muscle Aches: Yes Joint Swelling: Yes Morning Stiffness in Joints: Yes A Rash: Yes Do you have sun sensitive rashes?: Yes Skin Color Changes: No Hair Loss: Yes Nail Changes: Yes Headaches: Yes Numbness: Yes Memory Loss: Yes Swollen Glands: No BP 155/93 Pulse 94 Wt 125.8 kg (277 lb 6.4 oz) BMI 46.16 kg/m? GEneral plesant in nad heent negative lungs clear cvs reg abd soft extr negative normal joint exam no synovitis. Assessment and plan Fibromyalgia worse. Will refer to pool therapy, and CPRP. Anxiety, add effexor. Will check routine labs. Leena Seymour MD Referring Provider: SELF [[id number]] Allergies As of Date: 10/07/2021 Noted Allergy Reaction BIAXIN XL (CLARITHROMYCIN) 05/16/2007 9 - Itching Comments: nerve difficulty CEFTIN (CEFUROXIME AXETIL) 05/16/2007 9 - Itching Comments: nerve difficulty FLUCONAZOLE 06/16/2021 9 - Itching LEVAQUIN (LEVOFLOXACIN) 05/16/2007 9 - Itching Comments: nerve difficulty LORAZEPAM 06/16/2021 14 - Other: See Comments METFORMIN 06/16/2021 14 - Other: See Comments TEQUIN (GATIFLOXACIN) 05/16/2007 9 - Itching Comments: nerve difficulty Date Reviewed: 06/16/2021 Reviewed by: Aracelis Rivers Ma - Fully Assessed Primary Visit Diagnosis:Fibromyalgi a [M79.7] Other Visit Diagnosis:ALDEN (generalized anxiety disorder) [F41.1] Order(s):CBC + DIFF [SQCBCDIF] Order #: [id number] FUTURE PROTEIN ELECTROPHORESIS SERUM W/INTERP [SQSEPG] Order #: [id number] FUTURE venlafaxine ER (EFFEXOR XR) 37.5 mg 24 hr capsuletake one a day, if tolerated after two weeks increase to twoDisp: 60 capsuleRfl: 3 CO (more content not included)... Normal [facility] Comprehensive metabolic 2000 panelon 10-07-2021 Albumin [Mass/Vol] 4.8 g/dL Normal 3.9-4.9 [facility] Comment on above: Order Comment: Speci men Type: BLOOD SPECIMENOrdering Facility: [facility] Address: [address] [place] [address] Performed By: #### C MP, HBA1C, FREET3, FT4, TSH #### [place] [id number] ALP [Catalytic activity/Vol] 72 U/L Normal 34-123 [facility] Comment on above: Order Comment: Speci men Type: BLOOD SPECIMENOrdering Facility: [facility] Address: [address] [place] [address] Performed By: #### C MP, HBA1C, FREET3, FT4, TSH #### [place] [id number] ALT [Catalytic activity/Vol] 24 U/L Normal 7-38 [facility] Comment on above: Order Comment: Speci men Type: BLOOD SPECIMENOrdering Facility: [facility] Address: [address] [place] [address] Performed By: #### C MP, HBA1C, FREET3, FT4, TSH #### [place] [address] Anion gap [Moles/Vol] 11 mmol/L Normal 9-18 [facility] Comment on above: Order Comment: Speci men Type: BLOOD SPECIMENOrdering Facility: [facility] Address: [address] [place] [address] Performed By: #### C MP, HBA1C, FREET3, FT4, TSH #### [place] [phone] AST [Catalytic activity/Vol] 17 U/L Normal 13-35 [facility] Comment on above: Order Comment: Speci men Type: BLOOD SPECIMENOrdering Facility: [facility] Address: [address] [place] [address] Performed By: #### C MP, HBA1C, FREET3, FT4, TSH #### [place] [phone] Bilirubin [Mass/Vol] 0.5 mg/dL Normal 0.2-1.[address] [facility] Comment on above: Order Comment: Speci men Type: BLOOD SPECIMENOrdering Facility: [facility] Address: [address] [place] [address] Performed By: #### C MP, HBA1C, FREET3, FT4, TSH #### [place] [phone] Calcium [Mass/Vol] 10.3 mg/dL High 8.5-10.2 [facility] Comment on above: Order Comment: Speci men Type: BLOOD SPECIMENOrdering Facility: [facility] Address: [address] [place] [address] Performed By: #### C MP, HBA1C, FREET3, FT4, TSH #### [place] [phone] Chloride [Moles/Vol] 100 mmol/L Normal 97-[address] [facility] Comment on above: Order Comment: Speci men Type: BLOOD SPECIMENOrdering Facility: [facility] Address: [address] [place] [address] Performed By: #### C MP, HBA1C, FREET3, FT4, TSH #### [place] [address] CO2 [Moles/Vol] 28 mmol/L Normal 22-30 [facility] Comment on above: Order Comment: Speci men Type: BLOOD SPECIMENOrdering Facility: [facility] Address: [address] [place] [address] Performed By: #### C MP, HBA1C, FREET3, FT4, TSH #### [place] [phone] Creatinine [Mass/Vol] 0.70 mg/dL Normal 0.58-0.96 [facility] Comment on above: Order Comment: Speci men Type: BLOOD SPECIMENOrdering Facility: [facility] Address: [address] [place] [address] Performed By: #### C MP, HBA1C, FREET3, FT4, TSH #### [place] [phone] ESTIMATED GLOMERULAR FILTRATION RATE 103 mL/min/1.73m??? Normal >=60 [facility] Comment on above: Order Comment: Speci men Type: BLOOD SPECIMENOrdering Facility: [facility] Address: [address] [place] [address] Result Comment: [place] mated Glomerular Filtration Rate (eGFR) is calculated using the 2020 CKD-EPI creatinine equation. This equation utilizes serum creatinine, sex, and age as parameters. The creatinine assay has traceable calibration to isotope dilution-mass spectrometry. Refer to KDIGO guidelines for clinical interpretation. In patients with unstable renal function, e.g. those with acute kidney injury, the eGFR may not accurately reflect actual GFR. Performed By: #### C MP, HBA1C, FREET3, FT4, TSH #### [place] [id number] Glucose [Mass/Vol] 124 mg/dL High 74-99 [facility] Comment on above: Order Comment: Speci men Type: BLOOD SPECIMENOrdering Facility: [facility] Address: [address] [place] [address] Result Comment: The [place] Diabetes Association (ADA) provides guidance for cutoff values for fasting glucose and random glucose. The ADA defines fasting as no caloric intake for at least 8 hours. Fasting plasma glucose results between 100 to 125 mg/dL indicate increased risk for diabetes (prediabetes). Fasting plasma glucose results greater than or equal to 126 mg/dL meet the criteria for diagnosis of diabetes. In the absence of unequivocal hyperglycemia, results should be confirmed by repeat testing. In a patient with classic symptoms of hyperglycemia or hyperglycemic crisis, random plasma glucose results greater than or equal to 200 mg/dL meet the criteria for diagnosis of diabetes. Reference: Standards of Medical Care in Diabetes 2016, [place] Diabetes Association. Diabetes Care. 2016.39(Suppl 1). Performed By: #### C MP, HBA1C, FREET3, FT4, TSH #### [place] [phone] Potassium [Moles/Vol] 4.1 mmol/L Normal 3.7-5.1 [facility] Comment on above: Order Comment: Pancho hayes Type: BLOOD SPECIMENOrdering Facility: [facility] Address: [address] [place] [address] Performed By: #### C MP, HBA1C, FREET3, FT4, TSH #### [place] [phone] Protein [Mass/Vol] 7.3 g/dL Normal 6.3-8.0 [facility] Comment on above: Order Comment: Pancho hayes Type: BLOOD SPECIMENOrdering Facility: [facility] Address: [address] [place], [place] [id number] Performed By: #### C MP, HBA1C, FREET3, FT4, TSH #### [place] [address] Sodium [Moles/Vol] 139 mmol/L Normal 136-144 [facility] Comment on above: Order Comment: Pancho men Type: BLOOD SPECIMENOrdering Facility: [facility] Address: [address] [place] [address] Performed By: #### C MP, HBA1C, FREET3, FT4, TSH #### [place] [address] Urea nitrogen [Mass/Vol] 18 mg/dL Normal 7-21 [facility] Comment on above: Order Comment: Pancho men Type: BLOOD SPECIMENOrdering Facility: [facility] Address: [address] [place] [address] Performed By: #### C MP, HBA1C, FREET3, FT4, TSH #### [place] [address] HGB A1Con 10-07-2021 Average glucose Estimated from glycated hemoglobin (Bld) [Mass/Vol] 160 mg/dL Normal [facility] Comment on above: Order Comment: Pancho men Type: BLOOD SPECIMENOrdering Facility: [facility] Address: [address] [place] [address] Result Comment: eAG: (Estimated average glucose) is a calculated value from HgbA1c and is sales promotion representative of the average blood glucose level in the last 2-3 month period. Performed By: #### C MP, HBA1C, FREET3, FT4, TSH #### [place] [phone] HbA1c (Bld) [Mass fraction] 7.2 % High 4.3-5.6 [facility] Comment on above: Order Comment: Pancho [facility] Type: BLOOD SPECIMENOrdering Facility: [facility] Address: [address] [place] [address] Result Comment: [place] Diabetes Association guidelines indicate that patients with HgbA1c in the range 5.7-6.4% are at increased risk for development of diabetes, and intervention by lifestyle modification may be beneficial. HgbA1c greater or equal to 6.5% is considered diagnostic of diabetes. Performed By: #### C MP, HBA1C, FREET3, FT4, TSH #### [place] [address] PROTEIN ELECTROPHORESIS SERU M (P)on 10-07-2021 Albumin [Mass/Vol] 4.18 g/dL Normal 3.37-4.23 [facility] Comment on above: Order Comment: Speci men Type: BLOOD SPECIMENOrdering Facility: [facility] Address: [address] [place] [address] Performed By: #### C MP, HBA1C, FREET3, FT4, TSH #### [place] [address] Alpha 1 globulin Elph [Mass/Vol] 0.24 g/dL Normal 0.18-0.31 [facility] Comment on above: Order Comment: Speci men Type: BLOOD SPECIMENOrdering Facility: [facility] Address: [address] [place] [address] Performed By: #### C MP, HBA1C, FREET3, FT4, TSH #### [place] [address] Alpha 2 globulin Elph [Mass/Vol] 0.83 g/dL Normal 0.52-0.97 [facility] Comment on above: Order Comment: Speci men Type: BLOOD SPECIMENOrdering Facility: [facility] Address: [address] [place] [address] Performed By: #### C MP, HBA1C, FREET3, FT4, TSH #### [place] [address] Beta globulin Elph [Mass/Vol] 1.21 g/dL Normal 0.84-1.36 [facility] Comment on above: Order Comment: Speci men Type: BLOOD SPECIMENOrdering Facility: [facility] Address: [address] [place] [address] Performed By: #### C MP, HBA1C, FREET3, FT4, TSH #### [place] [address] Gamma globulin Elph (Body fld) [Mass fraction] 0.74 g/dL Normal 0.70-1.44 [facility] Comment on above: Order Comment: Speci men Type: BLOOD SPECIMENOrdering Facility: [facility] Address: [address] [place] [address] Performed By: #### C MP, HBA1C, FREET3, FT4, TSH #### [place] [address] M-PROTEIN LOCATION Normal [facility] Comment on above: Order Comment: Speci men Type: BLOOD SPECIMENOrdering Facility: [facility] Address: [address] [place] [address] Result Comment: Not Applicable. Performed By: #### C MP, HBA1C, FREET3, FT4, TSH #### [place] [address] Protein Fractions [Interp] No definitive M protein is identified on protein electrophoresis. Normal No definitive M protein is identified on protein electrophoresi s. [facility] Comment on above: Order Comment: Speci men Type: BLOOD SPECIMENOrdering Facility: [facility] Address: [address] [place] [address] Performed By: #### C MP, HBA1C, FREET3, FT4, TSH #### [place] [address] Protein.monoclonal Elph [Mass/Vol] 0.00 g/dL Normal <=0.00 [facility] Comment on above: Order Comment: Speci men Type: BLOOD SPECIMENOrdering Facility: [facility] Address: [address] [place] [address] Performed By: #### C MP, HBA1C, FREET3, FT4, TSH #### [place] [id number] SPE STAFF REVIEW Reviewed by Ginette Doyle MD [facility] Comment on above: Order Comment: Speci men Type: BLOOD SPECIMENOrdering Facility: [facility] Address: [address] [place] [address] Performed By: #### C MP, HBA1C, FREET3, FT4, TSH #### [place] [address] Prot SerPl-mCncon 10-07-2021 Protein [Mass/Vol] 7.2 g/dL Normal 6.3-8.0 [facility] Comment on above: Order Comment: Speci men Type: BLOOD SPECIMEN [facility] Address: [address] [place] [address] Performed By: #### 2 885-2 #### [facility] CLIA [id number] [address] [place] [address] OF [facility] T3 FREE BLDon 10-07-2021 Free T3 [Mass/Vol] 3.1 pg/mL Normal 2.3-4.1 [facility] Comment on above: Order Comment: Speci men Type: BLOOD SPECIMENOrdering Facility: [facility] Address: [address] [place] [address] Performed By: #### C MP, HBA1C, FREET3, FT4, TSH #### [place] [address] T4 FREE/FREE THYROXon 2021 Free T4 [Mass/Vol] 2.5 ng/dL High 0.9-1.7 [facility] Comment on above: Order Comment: Speci men Type: BLOOD SPECIMENOrdering Facility: [facility] Address: [address] [place] [address] Performed By: #### C MP, HBA1C, FREET3, FT4, TSH #### [place] [address] TSH SerPl-aCncon 10-07-2021 TSH Qn 0.228 m[IU]/L Low 0.270-4.200 [facility] Comment on above: Order Comment: Speci men Type: BLOOD SPECIMENOrdering Facility: [facility] Address: [address] [place] [address] [place] [address] Performed By: #### C MP, HBA1C, FREET3, FT4, TSH #### [facility] CenterTessie Smith [place], [place] [address] CNPHortencia 10-03-2021 CNPN Telephone (ENDOMN) CANELO PATHAK ([id number]) 1965 F Date Time Provider Department 10/03/21 ASAD ANSARI During your visit today, we recorded the following information about you: Renea Mcfarland Corn Cutter 10/03/2021 3:05 PM Addendum Patient called in asking for routine lab orders to be placed. Patient stated she will schedule her appointment soon. Done. Asad Ansari MD Allergies As of Date: 10/03/2021 Noted Allergy Reaction BIAXIN XL (CLARITHROMYCIN) 05/16/2007 9 - Itching Comments: nerve difficulty CEFTIN (CEFUROXIME AXETIL) 05/16/2007 9 - Itching Comments: nerve difficulty FLUCONAZOLE 06/16/2021 9 - Itching LEVAQUIN (LEVOFLOXACIN) 05/16/2007 9 - Itching Comments: nerve difficulty LORAZEPAM 06/16/2021 14 - Other: See Comments METFORMIN 06/16/2021 14 - Other: See Comments TEQUIN (GATIFLOXACIN) 05/16/2007 9 - Itching Comments: nerve difficulty Date Reviewed: 06/16/2021 Reviewed by: Aracelis Rivers Ma - Fully Assessed Reason for Visit: Lab Orders [1687] Primary Visit Diagnosis:Acquired hypothyroidism [E03.9] Other Visit Diagnosis:Controlled type 2 diabetes mellitus without complication, without long-term current use of insulin (HCC) [E11.9] Order(s):TSH BLD [SQTSH] Order #: [id number] FUTURE T4 FREE/FREE THYROX [SQFT4] Order #: [id number] FUTURE T3 FREE BLD [SQFREET3] Order #: [id number] FUTURE COMP METABOLIC PANEL [SQCMP] Order #: [id number] FUTURE HGB A1C [MQUSP1R] Order #: [id number] FUTURE Prescriptions as of 10/05/2021 - metFORMIN ER (GLUCOPHAGE XR) 500 mg 24 hr tablet Take 2 tablets by mouth twice daily. - levothyroxine (SYNTHROID) 112 mcg tablet Take 2 tablets by mouth once daily. - cyclobenzaprine (FLEXERIL) 10 mg tablet - Cholecalciferol, Vitamin D3, 125 mcg (5,000 unit) cap - Vitamin D Encampment ([employer]) Take 1 capsule by mouth daily with food. - montelukast (SINGULAIR) 10 mg tablet Take 10 mg by mouth daily at bedtime. - MULTIVIT-MINERALS/GEOVANI ALEXSANDRA GLUC (CENTRAM-CARE ORAL) Take by mouth twice daily. - esomeprazole mag trihydrate(NEXIUM 40 MG CAP) Take one(1) capsule daily. - mometasone furoate(NASONEX 50 MCG/ACTUATION SPRAY) [employer] twice in each nostril once daily. - cetirizine hcl(ZYRTEC 10 MG TAB) Take one(1) tablet daily. - fluticasone/salmetero l(ADVAIR DISKUS 250 MCG-50 MCG/DOSE FOR INHALATION) Take one(1) inhalation twice daily; rinse and gargle mouth with water after each use. 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 Gin Chew CK.MB [Mass/Vol] 0.66 ng/mL Normal <=3.60 [facility] Comment on above: Performed By: #### F T3, CMP, LIPID, TSH #### [facility] [address] [place] [address] Dr. Gin Chew HSTROP 6.4 pg/mL Normal 4.0-51.3 [facility] Comment on above: Result Comment: CUT- OFF POINTS HAVE BEEN ESTABLISHED BASED ON THE FOURTH UNIVERSAL DEFINITIONS OF MYOCARDIAL INFARCTION. THE UPPER REFERENCE LIMIT (URL) OF TROPONIN, DEFINED THE 99TH PERCENTILE OF cTnI DISTRIBUTION IN A REFERENCE POPULATION, HAS BEEN CONFIRMED THE DECISION THRESHOLD FOR AR DIAGNOSIS. Performed By: #### F T3, CMP, LIPID, TSH #### [facility] [address] [place] [address] Dr. Gin Chew SIXTO 28 ng/mL Normal 9-82 [facility] Comment on above: Performed By: #### F T3, CMP, LIPID, TSH #### [facility] [address] [place] [address] Dr. Gin Chew CBC AUTO DIFFon 09-28-2021 BASO # 0.1 103/ul Normal 0.0-0.1 [facility] Comment on above: Performed By: #### A 1C #### [facility] [address] [place] [address] Dr. Gin Chew Basophils/100 WBC (Bld) 0.7 % Normal 0.2-2.0 [facility] Comment on above: Performed By: #### A 1C #### [facility] [address] [place] [address] Dr. Gin Chew EO # 0.5 103/ul Normal 0.0-0.7 [facility] Comment on above: Performed By: #### A 1C #### [facility] [address] [place] [address] Dr. Gin Chew Eosinophils/100 WBC (Bld) 4.4 % Normal 0.9-7.0 [facility] Comment on above: Performed By: #### A 1C #### [facility] [address] [place] [address] Dr. Gin Chew Erythrocyte distribution width (RBC) [Ratio] 12.7 % Normal 11.0-15.0 [facility] Comment on above: Performed By: #### A 1C #### [facility] [address] [place] [address] Dr. Gin Chew Hematocrit (Bld) [Volume fraction] 42.2 % Normal 36.0-48.0 [facility] Comment on above: Performed By: #### A 1C #### [facility] [address] [place] [address] Dr. Gin Chew Hemoglobin (Bld) [Mass/Vol] 14.1 g/dL Normal 12.0-16.0 [facility] Comment on above: Performed By: #### A 1C #### [facility] [address] [place] [address] Dr. Gin Chew IG # 0.10 10e3/ul Critically high 0.00-0.03 [facility] Comment on above: Performed By: #### A 1C #### [facility] [address] [place] [address] Dr. Gin Chew IG % 0.9 % Critically high 0.0-0.5 [facility] Comment on above: Performed By: #### A 1C #### [facility] [address] [place] [address] Dr. Gin Chew LYMPH # 3.4 103/ul Normal 1.2-3.8 [facility] Comment on above: Performed By: #### A 1C #### [facility] [address] [place] [address] Dr. Gin Chew Lymphocytes/100 WBC (Bld) 29.9 % Normal 20.5-60.0 [facility] Comment on above: Performed By: #### A 1C #### [facility] [address] [place] [address] Dr. Gin Chew MANUAL DIFF REQ NO Normal [facility] Comment on above: Performed By: #### A 1C #### [facility] [address] [place] [address] Dr. Gin Chew MCH (RBC) [Entitic mass] 31.0 pg Normal 26.7-34.0 [facility] Comment on above: Performed By: #### A 1C #### [facility] [address] [place] [address] Dr. Gin Chew MCHC (RBC) [Mass/Vol] 33.4 g/dL Normal 29.9-35.2 [facility] Comment on above: Performed By: #### A 1C #### [facility] [address] [place] [address] Dr. Gin Chew MCV (RBC) [Entitic vol] 92.7 fL Normal 81.0-99.0 [facility] Comment on above: Performed By: #### A 1C #### [facility] [address] [place] [address] Dr. Gin Chew MONO # 0.7 103/ul Normal 0.3-0.8 [facility] Comment on above: Performed By: #### A 1C #### [facility] [address] [place] [address] Dr. Gin Chew Monocytes/100 WBC (Bld) 6.5 % Normal 1.7-12.0 [facility] Comment on above: Performed By: #### A 1C #### [facility] [address] [place] [address] Dr. Gin Chew NEUT # 6.5 103/ul Normal 1.4-6.5 [facility] Comment on above: Performed By: #### A 1C #### [facility] [address] [place] [address] Dr. Gin Chew Neutrophils/100 WBC (Bld) 57.6 % Normal 43.0-75.0 [facility] Comment on above: Performed By: #### A 1C #### [facility] [address] [place] [address] Dr. Gin Chew Platelet mean volume (Bld) [Entitic vol] 10.1 fL Normal 9.5-13.5 [facility] Comment on above: Performed By: #### A 1C #### [facility] [address] [place] [address] [place], [place] [address] Dr. Gin Chew PLT 349 103/ul Normal 150-450 [facility] Comment on above: Performed By: #### A 1C #### [facility] [address] [address] [address] Gin Chew RBC 4.55 106/ul Normal 4.20-5.40 [facility] Comment on above: Performed By: #### A 1C #### [facility] [address], [place] [address] Dr. Gin Chew WBC 11.3 103/ul Critically high 4.0-11.0 [facility] Comment on above: Performed By: #### A 1C #### [facility] [address] [address] ABD/PELVIS WO CONon 09-28 CT ABD/PELVIS WO CON EXAMINATION: CT ABD/PELVIS WO CON, 09/28/2021 9:54 AM EDT HISTORY: NAUSEA WITH VOMITING, UNSPECIFIED COMPARISON: 09/10/2018 TECHNIQUE: CT scan of the abdomen and pelvis was performed without IV contrast. CT dose reduction technique was used, including Automated Exposure Control. FINDINGS: LUNG BASES: No visible pulmonary or pleural disease. LIVER: No enlargement, atrophy, abnormal density, or significant focal lesion. BILIARY: Surgical clips from cholecystectomy PANCREAS: No lesion, fluid collection, ductal dilatation, or atrophy. SPLEEN: No enlargement or focal lesion. ADRENALS: No mass or enlargement. KIDNEYS: No mass, obstruction, or calcification. BOWEL/MESENTERY: No visible mass, obstruction, or bowel wall thickening. AORTA/VASCULAR: No aortic aneurysm. Mild atherosclerosis RETROPERITONEUM: No mass or adenopathy. LYMPH NODES: No adenopathy. URINARY BLADDER: No visible focal wall thickening, lesion, or calculus. PELVIC ORGANS: Hysterectomy ABDOMINAL WALL: No mass or hernia. BONES: No bony lesion or fracture. OTHER: Negative. IMPRESSION: No acute intraperitoneal abnormality Electronically authenticated by: JEFF PATHAK Date: 2021-09-28 10:31 Normal [facility] POINT OF CARE GLUCOSEon 05-2 Glucose [Mass/Vol] 129 mg/dL Critically high 74-106 [facility] Comment on above: Performed By: #### F T3, CMP, LIPID, TSH #### [facility] [address] [address] [address] Gin Chew PROF 14(COMP METB)on 022 Albumin [Mass/Vol] 3.7 g/dL Normal 3.4-5.0 [facility] Comment on above: Performed By: #### F T3, CMP, LIPID, TSH #### [facility] [address] [address] [address] Gin Chew Albumin/Globulin [Mass ratio] 1.1 {ratio} Normal [facility] Comment on above: Performed By: #### F T3, CMP, LIPID, TSH #### [facility] [address] [place] [address] Dr. Gin Chew ALP [Catalytic activity/Vol] 79 U/L Normal 46-116 [facility] Comment on above: Performed By: #### F T3, CMP, LIPID, TSH #### [facility] [address] [address] [address] Gin Chew ALT [Catalytic activity/Vol] 28 U/L Normal 14-59 [facility] Comment on above: Performed By: #### F T3, CMP, LIPID, TSH #### [facility] [address] [address] [address] Gin Chew Anion gap [Moles/Vol] 9.9 mmol/L Normal [facility] Comment on above: Performed By: #### F T3, CMP, LIPID, TSH #### [facility] [address] [address] [address] Gin Chew AST [Catalytic activity/Vol] 15 U/L Normal 15-37 [facility] Comment on above: Performed By: #### F T3, CMP, LIPID, TSH #### [facility] [address] [address] [address] Gin Chew Bilirubin [Mass/Vol] 0.3 mg/dL Normal 0.2-1.0 [facility] Comment on above: Performed By: #### F T3, CMP, LIPID, TSH #### [facility] [address] [address] [address] Gin Chew Calcium [Mass/Vol] 9.2 mg/dL Normal 8.5-10.1 [facility] Comment on above: Performed By: #### F T3, CMP, LIPID, TSH #### [facility] [address] [address] [address] Gin Chew Chloride [Moles/Vol] 100 mmol/L Normal 98-107 [facility] Comment on above: Performed By: #### F T3, CMP, LIPID, TSH #### [facility] [address] [address] [address] Gin Chew CO2 [Moles/Vol] 32.1 mmol/L Critically high 21.0-32.0 [facility] Comment on above: Performed By: #### F T3, CMP, LIPID, TSH #### [facility] [address] [address] [address] Gin Chew Creatinine [Mass/Vol] 0.75 mg/dL Normal 0.55-1.02 [facility] Comment on above: Performed By: #### F T3, CMP, LIPID, TSH #### [facility] [address] [place] [address] Dr. Gin Chew EGFR-AF NORWEGIAN >60 Normal >=60 [facility] Comment on above: Performed By: #### F T3, CMP, LIPID, TSH #### [facility] [address] [address] [address] Gin Chew EGFR-NON AF NORWEGIAN >60 Normal >=60 [facility] Comment on above: Performed By: #### F T3, CMP, LIPID, TSH #### [facility] [address] [place] [address] Dr. Gin Chew Globulin (S) [Mass/Vol] 3.4 g/dL Normal [facility] Comment on above: Performed By: #### F T3, CMP, LIPID, TSH #### [facility] [address] [place] [address] Dr. Gin Chew Glucose [Mass/Vol] 138 mg/dL Critically high 74-106 [facility] Comment on above: Performed By: #### F T3, CMP, LIPID, TSH #### [facility] [address] [address] [address] Gin Chew Potassium [Moles/Vol] 4.0 mmol/L Normal 3.5-5.1 [facility] Comment on above: Performed By: #### F T3, CMP, LIPID, TSH #### [facility] [address] [address] [address] Gin Chew Protein [Mass/Vol] 7.1 g/dL Normal 6.4-8.2 [facility] Comment on above: Performed By: #### F T3, CMP, LIPID, TSH #### [facility] [address] [address] [address] Gin Chew Sodium [Moles/Vol] 138 mmol/L Normal 136-145 [facility] Comment on above: Performed By: #### F T3, CMP, LIPID, TSH #### [facility] [address] [address] [address] Gin Chew Urea nitrogen [Mass/Vol] 17.0 mg/dL Normal 7.0-18.0 [facility] Comment on above: Performed By: #### F T3, CMP, LIPID, TSH #### [facility] [address] [address] [address] Gin Chew Urea nitrogen/Creatinine [Mass ratio] 22.7 mg/mg Normal [facility] Comment on above: Performed By: #### F T3, CMP, LIPID, TSH #### [facility] [address] [address] [address] Gin Chew PROTIMEon 09-28-2021 INR Coag (PPP) [Relative time] 0.94 {INR} Normal [facility] Comment on above: Performed By: #### B MP #### [facility] [address] [address] [address] Gin Chew INR GUIDELINES SEE BELOW Normal [facility] Comment on above: Result Comment: MERRICK RED INR: 2.0 - 3.0 CONDITIONS NOT LISTED BELOW 2.5 - 3.5 FOR PROSTHETIC HEART VALVE REPLACEMENT 2.5 - 3.5 RECURRENT THROMBOSIS Performed By: #### B MP #### [facility] [address] [place] [address] Dr. Gin Chew PT Coag (PPP) [Time] 10.2 s Normal 9.0-11.6 [facility] Comment on above: Performed By: #### B MP #### [facility] [address] [place] [address] Dr. Gin Chew PTTon 09-28-2021 aPTT Coag (Bld) [Time] 26.9 s Normal 22.3-36.2 [facility] Comment on above: Performed By: #### B MP #### [facility] [address] [place] [address] Dr. Gin Chew TROPONIN, HIGH SENSITIVITYon 09-28-2021 HSTROP 7.3 pg/mL Normal 4.0-51.3 [facility] Comment on above: Result Comment: CUT- OFF POINTS HAVE BEEN ESTABLISHED BASED ON THE FOURTH UNIVERSAL DEFINITIONS OF MYOCARDIAL INFARCTION. THE UPPER REFERENCE LIMIT (URL) OF TROPONIN, DEFINED THE 99TH PERCENTILE OF cTnI DISTRIBUTION IN A REFERENCE POPULATION, HAS BEEN CONFIRMED THE DECISION THRESHOLD FOR AR DIAGNOSIS. Performed By: #### B MP #### [facility] [address] [place] [address] Dr. Gin Chew XR CHEST 1 Von 09-28-2021 XR CHEST 1 V EXAMINATION: XR CHES T 1 V HISTORY: CHEST PAIN, UNSPECIFIED COMPARISON: 08/15/2021 TECHNIQUE: AP portable erect FINDINGS: LUNGS: No significant pulmonary parenchymal abnormalities. VASCULATURE: No increased pulmonary vasculature. PLEURA: No pneumothorax, effusion, or pleural thickening. CARDIAC: No cardiomegaly or cardiac silhouette abnormality. MEDIASTINUM: No visible mass or adenopathy. BONES: No fracture or visible bone lesion. OTHER: Negative. IMPRESSION: No acute disease. Electronically authenticated by: JEFF PATHAK Date: 2021-09-28 09:20 Normal [facility] CNPNon 07-21-2021 CNPN Telephone (ENDOMN) CANELO PATHAK ([id number]) 1965 F Date Time Provider Department 07/21/21 ASAD ANSARI During your visit today, we recorded the following information about you: Luan Romano 07/21/2021 12:42 PM Signed I called the patient to prescreen prior to 07/22/21 virtual visit, but patient did not answer the phone. I left a message on patient's voicemail stating their appointment is on 07/22/21 at 1040am, so they should log in to appointment 10-15 minutes before appointment time.Also stated to please [facility] to ensure they are correct. Allergies As of Date: 07/21/2021 Noted Allergy Reaction BIAXIN XL (CLARITHROMYCIN) 05/16/2007 9 - Itching Comments: nerve difficulty CEFTIN (CEFUROXIME AXETIL) 05/16/2007 9 - Itching Comments: nerve difficulty FLUCONAZOLE 06/16/2021 9 - Itching LEVAQUIN (LEVOFLOXACIN) 05/16/2007 9 - Itching Comments: nerve difficulty LORAZEPAM 06/16/2021 14 - Other: See Comments METFORMIN 06/16/2021 14 - Other: See Comments TEQUIN (GATIFLOXACIN) 05/16/2007 9 - Itching Comments: nerve difficulty Date Reviewed: 06/16/2021 Reviewed by: Aracelis Rivers Ma - Fully Assessed Reason for Visit: Nurse Triage Call [[id number]] Prescriptions as of 07/21/2021 - metFORMIN ER (GLUCOPHAGE XR) 500 mg 24 hr tablet Take 1 tablet by mouth twice daily. - levothyroxine 200 mcg cap Take 200 mcg by mouth daily before breakfast. - cyclobenzaprine (FLEXERIL) 10 mg tablet - Cholecalciferol, Vitamin D3, 125 mcg (5,000 unit) cap - Vitamin D Encampment ([employer]) Take 1 capsule by mouth daily with food. - montelukast (SINGULAIR) 10 mg tablet Take 10 mg by mouth daily at bedtime. - MULTIVIT-MINERALS/GEOVANI ALEXSANDRA GLUC (CENTRAM-CARE ORAL) Take by mouth twice daily. - esomeprazole mag trihydrate(NEXIUM 40 MG CAP) Take one(1) capsule daily. - mometasone furoate(NASONEX 50 MCG/ACTUATION SPRAY) [employer] twice in each nostril once daily. - cetirizine hcl(ZYRTEC 10 MG TAB) Take one(1) tablet daily. - fluticasone/salmetero l(ADVAIR DISKUS 250 MCG-50 MCG/DOSE FOR INHALATION) Take one(1) inhalation twice daily; rinse and gargle mouth with water after each use. 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] 09/20/2015 Metabolic syndrome [E88.81] 09/20/2015 Sensorineural hearing loss, bilateral [H90.3] 12/16/2018 Encounter Status:Closed by LUAN ROMANO on 07/21/21 [facility] Rosa 06-22-2021 [facility] Tele[facility] (ENDOMN) CANELO PATHAK ([id number]) 1965 F Date Time Provider Department 06/22/21 ASAD ANSARI During your visit today, we recorded the following information about you: Neema Neptali Adm 06/22/2021 9:10 AM Signed Patient called in requesting the results of her labs that she had completed on 06/16/2021 Canelo can be reached at [phone] (C) or can be reached through [employer]. Allergies As of Date: 06/22/2021 Noted Allergy Reaction BIAXIN XL (CLARITHROMYCIN) 05/16/2007 9 - Itching Comments: nerve difficulty CEFTIN (CEFUROXIME AXETIL) 05/16/2007 9 - Itching Comments: nerve difficulty FLUCONAZOLE 06/16/2021 9 - Itching LEVAQUIN (LEVOFLOXACIN) 05/16/2007 9 - Itching Comments: nerve difficulty LORAZEPAM 06/16/2021 14 - Other: See Comments METFORMIN 06/16/2021 14 - Other: See Comments TEQUIN (GATIFLOXACIN) 05/16/2007 9 - Itching Comments: nerve difficulty Date Reviewed: 06/16/2021 Reviewed by: Aracelis Rivers Ma - Fully Assessed Reason for Visit: Patient Question [4067] Prescriptions as of 05/10/2022 - levothyroxine (SYNTHROID) 200 mcg tablet Take one tablet daily. - venlafaxine ER (EFFEXOR XR) 37.5 mg 24 hr capsule take one a day, if tolerated after two weeks increase to two - metFORMIN ER (GLUCOPHAGE XR) 500 mg 24 hr tablet Take 2 tablets by mouth twice daily. - cyclobenzaprine (FLEXERIL) 10 mg tablet - Cholecalciferol, Vitamin D3, 125 mcg (5,000 unit) cap - montelukast (SINGULAIR) 10 mg tablet Take 10 mg by mouth daily at bedtime. - MULTIVIT-MINERALS/GEOVANI ALEXSANDRA GLUC (CENTRAM-CARE ORAL) Take by mouth twice daily. - esomeprazole mag trihydrate(NEXIUM 40 MG CAP) Take one(1) capsule daily. - mometasone furoate(NASONEX 50 MCG/ACTUATION SPRAY) [employer] twice in each nostril once daily. - cetirizine hcl(ZYRTEC 10 MG TAB) Take one(1) tablet daily. - fluticasone/salmetero l(ADVAIR DISKUS 250 MCG-50 MCG/DOSE FOR INHALATION) Take one(1) inhalation twice daily; rinse and gargle mouth with water after each use. 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] 09/20/2015 Metabolic syndrome [E88.81] 09/20/2015 Sensorineural hearing loss, bilateral [H90.3] 12/16/2018 Encounter Status:Closed by NEEMA HIGGINBOTHAM on 05/10/22 [facility] CNOVon 06-16-2021 CNOV Office Visit (ENDOMN ) CANELO PATHAK ([id number]) 1965 F Date Time Provider Department 06/16/21 1:20 PM ASAD ANSARI ENDOANIKET During your visit today, we recorded the following information about you: Pulse Blood pressure Weight 87/minute 168/97 128.7 kg Aracelis Rivers Ma 06/16/2021 12:23 PM Signed Thank you for choosing the [facility] Department of Endocrinology, Diabetes and Metabolism. Did you know that you need to call 48 hours in advance of your scheduled visit, if you are unable to make your appointment? [facility] [place] thanks you for your commitment, because patients not showing to their appointment results in a lost opportunity for patients to receive [facility] health care at the [facility]. To Cancel an appointment, please choose one of the following: - Call the Appointment Call Center at [phone] - From [employer], Go to Appointments ? Cancel Appts If cancelling, consider your need to reschedule to prevent further delays in your care. To Schedule an appointment, please choose one of the following: - Call the Appointment Call Center at [phone] - From [employer], Go to Appointments ? Request an Appt Asad Ansari MD 06/16/2021 1:56 PM Signed Last Visit: This is the first visit. Ms. Pathak is here for follow up regarding her DM Type 2 and hypothyroidism. Current Immunizations: Most Recent Immunizations Administered Date(s) Administered COVID-19 vaccine, age 12+ yr ([employer] - PURPLE TOP) 09/23/2020 PHYSICAL EXAMINATION: BP 168/97 (BP Site: Right Arm, BP Position: Sitting, BP Cuff Size: Large Adult) Pulse 87 Wt 128.7 kg (283 lb 11.2 oz) BMI 47.21 kg/m? Labs: HbA1c. TSH. Creatinine. ALT. Albumin to creatinine ratio. Cholesterol. TSH (uU/mL) Date Value 03/30/2016 1.260 09/20/2015 2.200 ALT (U/L) Date Value 09/20/2015 25 05/16/2007 14 Potassium (mmol/L) Date Value 09/20/2015 3.7 05/16/2007 4.1 Hemoglobin A1C (%) Date Value 03/30/2016 6.6 09/20/2015 6.4 Creatinine (mg/dL) Date Value 09/20/2015 0.71 05/16/2007 0.8 Glucose (mg/dL) Date Value 09/20/2015 114 05/16/2007 89 Current Outpatient Medications Medication Sig - levothyroxine 200 mcg cap Take 200 mcg by mouth daily before breakfast. - Vitamin D Encampment ([employer]) Take 1 capsule by mouth daily with food. - montelukast (SINGULAIR) 10 mg tablet Take 10 mg by mouth daily at bedtime. - MULTIVIT-MINERALS/GEOVANI ALEXSANDRA GLUC (CENTRAM-CARE ORAL) Take by mouth twice daily. - esomeprazole mag trihydrate(NEXIUM 40 MG CAP) Take one(1) capsule daily. - mometasone furoate(NASONEX 50 MCG/ACTUATION SPRAY) [employer] twice in each nostril once daily. - cetirizine hcl(ZYRTEC 10 MG TAB) Take one(1) tablet daily. - fluticasone/salmetero l(ADVAIR DISKUS 250 MCG-50 MCG/DOSE FOR INHALATION) Take one(1) inhalation twice daily; rinse and gargle mouth with water after each use. - cyclobenzaprine (FLEXERIL) 10 mg tablet - Cholecalciferol, Vitamin D3, 125 mcg (5,000 unit) cap No current facility-administered medications for this visit. Review of patient's past medical history indicates: Patient was diagnosed with prediabetes 6-7 years ago. She improved her diet and started exercising (lost about 50 lbs). No meds were used. Than she regained weight and now is loosing it again. Highest weight was 305 (now 283 lbs). She used to take metformin but it was stopped (it was immediate release). Last Hba1c was on 03/15/2022 was 7.3% (that was while she taking prednisone - was on it for months). Now of the prednisone since early April. She has hypothyroidism since 1998. Taking 200 mcg of T4 now. TSH was 5.593 on 03/15/2022 while taking 175/200 alternating. ROS: Energy is not good since March 2021. Sleeps to much. Weight is decreasing now with effort.. No difficulties swallowing or breathing. No pain or tenderness from thyroid bed. Has some dizziness. No heart palpitations. No temperature intolerance. No excessive sweating No constipation or diarrhea. Has nausea. Has hysterectomy and ovariectomy at age 44. No problems with skin, hair or nails. Has achiness of the muslce and joints. No muscle weaknes. No muscle cramping. No tremors. Memory is good. No problems focusing. SOC HX: No smoking or drinking. . Has no children. She stays at home. FAM HX: Mother had hypothyroidism. PE: Middle aged CC female. Obese. No acute distress, alert and oriented and in appropriate mood. HEENT: Laurita, sclera anicteric, conjunctiva non inflamed, oral mucosa moist, no lesions. No lid lag. No stare. No exophtalmos. NECK: Supple. No adenopathy. No elevated JVP. No palpable lymph nodes. THYROID: Not palpable. CV: No tachycardia. EXT: No edema or deformities. SKIN: no rash or lesions. No achantosis nigricans. NEURO: No focal signs. No tremors. (more content not included)... Normal [facility] Comp Metabolic Panelon 06-16 Albumin [Mass/Vol] 4.6 g/dL Normal 3.9-4.9 [facility] Comment on above: Performed By: #### C MP, HBA1C, FREET3, FT4, TSH #### [address] [place], [place] [address] ALP [Catalytic activity/Vol] 83 U/L Normal 34-123 [facility] Comment on above: Performed By: #### C MP, HBA1C, FREET3, FT4, TSH #### [address] [address] ALT [Catalytic activity/Vol] 28 U/L Normal 7-38 [facility] Comment on above: Performed By: #### C MP, HBA1C, FREET3, FT4, TSH #### [place] [address] Anion gap [Moles/Vol] 12 mmol/L Normal 9-18 [facility] Comment on above: Performed By: #### C MP, HBA1C, FREET3, FT4, TSH #### [place] [address] AST [Catalytic activity/Vol] 25 U/L Normal 13-35 [facility] Comment on above: Performed By: #### C MP, HBA1C, FREET3, FT4, TSH #### [address] [address] Bilirubin [Mass/Vol] 0.4 mg/dL Normal 0.2-1.[address] [facility] Comment on above: Performed By: #### C MP, HBA1C, FREET3, FT4, TSH #### [place] [id number] Calcium [Mass/Vol] 10.0 mg/dL Normal 8.5-10.2 [facility] Comment on above: Performed By: #### C MP, HBA1C, FREET3, FT4, TSH #### [address] [place] [id number] Chloride [Moles/Vol] 102 mmol/L Normal 97-[address] [facility] Comment on above: Performed By: #### C MP, HBA1C, FREET3, FT4, TSH #### [facility] [address] [address] CO2 [Moles/Vol] 27 mmol/L Normal 22-30 [facility] Comment on above: Performed By: #### C MP, HBA1C, FREET3, FT4, TSH #### [address] [place] [address] Creatinine [Mass/Vol] 0.74 mg/dL Normal 0.58-0.96 [facility] Comment on above: Performed By: #### C MP, HBA1C, FREET3, FT4, TSH #### [address] [place] [address] eGFR- Amer. >60 Normal [facility] Comment on above: Performed By: #### C MP, HBA1C, FREET3, FT4, TSH #### [place] [phone] eGFR-All Other Races >[address] [facility] Comment on above: Result Comment: eGFR (Estimated GFR) Units of measure: mL/min/1.73 meters squared eGFR is derived from the reexpressed MDRD Study equation using the following parameters: serum creatinine, age, gender and race. The creatinine assay has been calibrated to be traceable to IDMS. An eGFR <60 mL/min/1.73m2 for >3 months is consistent with chronic kidney disease. Refer to KDOQI guidelines for clinical interpretation. In patients with unstable renal function, e.g. those with acute kidney injury, the eGFR may not accurately reflect actual GFR. Note: On 07/16/2021, the eGFR calculation will be updated to the NKF-ASN Task Force recommended 2020 CKD-EPI creatinine equation which does not include a race variable. For more information or to access a 2020 CKD-EPI calculator, visit the National Kidney Foundation website at kidney.org/professionals/kdoqi/gfr_calculator. Performed By: #### C MP, HBA1C, FREET3, FT4, TSH #### [address] [place] [address] Glucose [Mass/Vol] 106 mg/dL High 74-99 [facility] Comment on above: Result Comment: The [place] Diabetes Association (ADA) provides guidance for cutoff values for fasting glucose and random glucose. The ADA defines fasting as no caloric intake for at least 8 hours. Fasting plasma glucose results between 100 to 125 mg/dL indicate increased risk for diabetes (prediabetes). Fasting plasma glucose results greater than or equal to 126 mg/dL meet the criteria for diagnosis of diabetes. In the absence of unequivocal hyperglycemia, results should be confirmed by repeat testing. In a patient with classic symptoms of hyperglycemia or hyperglycemic crisis, random plasma glucose results greater than or equal to 200 mg/dL meet the criteria for diagnosis of diabetes. Reference: Standards of Medical Care in Diabetes 2016, [place] [employer]. Diabetes Care. 2016.39(Suppl 1). Performed By: #### C MP, HBA1C, FREET3, FT4, TSH #### [place] [id number] Potassium [Moles/Vol] 3.9 mmol/L Normal 3.7-5.1 [facility] Comment on above: Performed By: #### C MP, HBA1C, FREET3, FT4, TSH #### [place] [address] Protein [Mass/Vol] 7.2 g/dL Normal 6.3-8.0 [facility] Comment on above: Performed By: #### C MP, HBA1C, FREET3, FT4, TSH #### [place] [id number] [place] [address] Sodium [Moles/Vol] 141 mmol/L Normal 136-144 [facility] Comment on above: Performed By: #### C MP, HBA1C, FREET3, FT4, TSH #### [place] [id number] Urea nitrogen [Mass/Vol] 15 mg/dL Normal 7-21 [facility] Comment on above: Performed By: #### C MP, HBA1C, FREET3, FT4, TSH #### [place] [id number] [place] [address] Free T3on 06-16-2021 Free T3 [Mass/Vol] 2.8 pg/mL Normal 2.3-4.1 [facility] Comment on above: Performed By: #### C MP, HBA1C, FREET3, FT4, TSH #### [place] [address] Free T4on 06-16-2021 Free T4 [Mass/Vol] 2.0 ng/dL High 0.9-1.7 [facility] Comment on above: Performed By: #### C MP, HBA1C, FREET3, FT4, TSH #### [place] [address] Hemoglobin A1con 06-16-2021 Glucose [Mass/Vol] 169 mg/dL Normal [facility] Comment on above: Result Comment: eAG: (Estimated average glucose) is a calculated value from HgbA1c and is sales promotion representative of the average blood glucose level in the last 2-3 month period. Performed By: #### C MP, HBA1C, FREET3, FT4, TSH #### [place] [id number] HbA1c (Bld) [Mass fraction] 7.5 % High 4.3-5.6 [facility] Comment on above: Result Comment: [place] Diabetes Association guidelines indicate that patients with HgbA1c in the range 5.7-6.4% are at increased risk for development of diabetes, and intervention by lifestyle modification may be beneficial. HgbA1c greater or equal to 6.5% is considered diagnostic of diabetes. 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 COMPARISONS: NONE TECHNIQUE: Multiplanar, multi-sequence MRI was performed on a 1.2Tesla open magnet. 20 mL of ProHance contrast were given intravenously. FINDINGS: There are no abnormal sites of restricted diffusion. The ventricles are normal in position. There is no evidence for intraaxial or extraaxial hemorrhage. There is no evidence for mass effect. There is no shift of the midline structures. There are no definite areas of demyelination within the white matter. There is no significant atrophy. Flow-voids in the major intracranial blood vessels are identified and are patent by spin-echo criteria. There is no evidence of susceptibility artifacts on gradient echo sequences. No abnormal sites of enhancement. Mild mucosal thickening right maxillary sinus and ethmoid sinuses. Mastoid air cells are clear. The seventh and eighth nerve complexes and optic nerves are symmetrical. No evidence for mass in the cerebellopontine angle. The corpus callosum has a normal appearance. The cerebellar tonsils are not ectopic. The pituitary gland is unremarkable. Optic nerves are symmetrical. The calvarium and dura are unremarkable. IMPRESSION: NO EVIDENCE OF ACUTE CVA, HEMORRHAGE OR MASS EFFECT. NO DEFINITE DEMYELINATING LESIONS. MILD MUCOSAL THICKENING RIGHT MAXILLARY SINUS AND ETHMOID SINUSES. Interpreted by: Briana Rosas MD Signed by: Briana Rosas MD 09/26/18 Final result Normal [facility] Vital Signs Date Time Vital Sign Value Performing Clinician Arabella darling 02-12-2024 11:53-0400 Diastolic blood pressure 90 mm[Hg] DO Jeff Jon Work Phone: [facility] 02-12-2024 11:53-0400 Heart rate 83 /min DO Jeff Jon Work Phone: [facility] 02-12-2024 11:53-0400 SaO2% (BldA) [Mass fraction] 97 % DO Jeff Jon Work Phone: [facility] 02-12-2024 11:53-0400 Systolic blood pressure 130 mm[Hg] DO Jeff Jon Work Phone: [facility] 01-14-2024 15:56-0400 Diastolic blood pressure 80 mm[Hg] DO Jeff Jon Work Phone: [facility] 01-14-2024 15:56-0400 Heart rate 82 /min DO Jeff Jon Work Phone: [facility] 01-14-2024 15:56-0400 SaO2% (BldA) [Mass fraction] 97 % DO Jeff Jon Work Phone: [facility] 01-14-2024 15:56-0400 Systolic blood pressure 142 mm[Hg] DO Jeff Jon Work Phone: [facility] 12-19-2023 14:19-0400 Diastolic blood pressure 80 mm[Hg] DO Jeff Jon Work Phone: [facility] 12-19-2023 14:19-0400 Heart rate 100 /min DO Jeff Jon Work Phone: [facility] 12-19-2023 14:19-0400 SaO2% (BldA) [Mass fraction] 96 % DO Jeff Jon Work Phone: [facility] 12-19-2023 14:19-0400 Systolic blood pressure 130 mm[Hg] DO Jeff Jon Work Phone: [facility] 12-05-2023 13:53-0400 Body weight 124.05 kg [facility] 12-05-2023 13:53-0400 Diastolic blood pressure 90 mm[Hg] [facility] 12-05-2023 13:53-0400 Heart rate 91 /min [facility] 12-05-2023 13:53-0400 SaO2% (BldA) [Mass fraction] 97 % [facility] 12-05-2023 13:53-0400 Systolic blood pressure 142 mm[Hg] [facility] 10-29-2023 14:41-0400 Body height 165.1 cm [facility] 10-29-2023 14:41-0400 Body mass index (BMI) [Ratio] 45.7 kg/m2 [facility] 10-29-2023 14:41-0400 Body weight 124.73 kg [facility] 10-29-2023 14:41-0400 Diastolic blood pressure 86 mm[Hg] [facility] 10-29-2023 14:41-0400 Heart rate 87 /min [facility] 10-29-2023 14:41-0400 Respiratory rate 18 /min [facility] 10-29-2023 14:41-0400 SaO2% (BldA) [Mass fraction] 97 % [facility] 10-29-2023 14:41-0400 Systolic blood pressure 142 mm[Hg] [facility] 09-26-2023 14:12-0400 Body height 165.1 cm [facility] 09-26-2023 14:12-0400 Body mass index (BMI) [Ratio] 46 kg/m2 [facility] 09-26-2023 14:12-0400 Body temperature 98.1 [degF] [facility] 09-26-2023 14:12-0400 Body weight 125.64 kg [facility] 09-26-2023 14:12-0400 Diastolic blood pressure 96 mm[Hg] [facility] 09-26-2023 14:12-0400 SaO2% (BldA) [Mass fraction] 95 % [facility] 09-26-2023 14:12-0400 Systolic blood pressure 152 mm[Hg] [facility] 08-28-2023 11:23-0400 Diastolic blood pressure 94 mm[Hg] [facility] 08-28-2023 11:23-0400 Heart rate 89 /min [facility] 08-28-2023 11:23-0400 SaO2% (BldA) [Mass fraction] 98 % [facility] 08-28-2023 11:23-0400 Systolic blood pressure 142 mm[Hg] [facility] 08-28-2023 10:49-0400 Body height 165.1 cm [facility] 08-28-2023 10:49-0400 Body mass index (BMI) [Ratio] 45.7 kg/m2 [facility] 08-28-2023 10:49-0400 Body weight 124.73 kg [facility] 05-10-2023 14:10-0500 Diastolic blood pressure 90 mm[Hg] Casper Nguyen [facility] 05-10-2023 14:10-0500 Heart rate 81 /min Casper Nguyen [facility] 05-10-2023 14:10-0500 Mean blood pressure 114 mm[Hg] Casper Nguyen [facility] 05-10-2023 14:10-0500 Respiratory rate 14 /min Casper Nguyen [facility] 05-10-2023 14:10-0500 Systolic blood pressure 162 mm[Hg] Casper Nguyen [facility] 03-19-2023 14:00-0400 Body height 165.1 cm Carlos Terrazas Other [employer] [facility] [employer] Other 03-19-2023 14:00-0400 Body mass index (BMI) [Ratio] 45.09 kg/m2 Carlos Terrazas Other [employer] Other 03-19-2023 14:00-0400 Body temperature 97.8 [degF] Ryleyer Mk Other [employer] Other 03-19-2023 14:00-0400 Body weight 122.93 kg Ryleyer Mk Other [employer] Other 03-19-2023 14:00-0400 Respiratory rate 20 /min Christkyleer Mk Other [employer] Other 03-19-2023 14:00-0400 SaO2% (BldA) [Mass fraction] 98 % Carlos Terrazas Other [employer] Other 02-22-2023 08:10-0400 Body height 165.1 cm Jeff Jon Other [employer] Other 02-22-2023 08:10-0400 Body mass index (BMI) [Ratio] 45.26 kg/m2 Jeff Jon Other [employer] Other 02-22-2023 08:10-0400 Body temperature 97.8 [degF] Jeff Jon Other [employer] Other 02-22-2023 08:10-0400 Body weight 123.38 kg Jeff Jon Other [employer] Other 02-22-2023 08:10-0400 Diastolic blood pressure 104 mm[Hg] Jeff Jon Other [employer] Other 02-22-2023 08:10-0400 Respiratory rate 18 /min Jeff Jon Other [employer] Other 02-22-2023 08:10-0400 SaO2% (BldA) [Mass fraction] 99 % Jeff Jon Other [employer] Other 02-22-2023 08:10-0400 Systolic blood pressure 158 mm[Hg] Jeff Jon Other [employer] Other 10-24-2022 16:50-0400 Body height 165.1 cm Lacie Manuel Other [employer] Other 10-24-2022 16:50-0400 Body mass index (BMI) [Ratio] 45.09 kg/m2 Lacie Manuel Other [employer] Other 10-24-2022 16:50-0400 Body temperature 98 [degF] Lacie Manuel Other [employer] Other 10-24-2022 16:50-0400 Body weight 122.93 kg Lacie Manuel Other [employer] Other 10-24-2022 16:50-0400 Diastolic blood pressure 81 mm[Hg] Lacie Manuel Other [employer] Other 10-24-2022 16:50-0400 Respiratory rate 18 /min Lacie Manuel Other [employer] Other 10-24-2022 16:50-0400 SaO2% (BldA) [Mass fraction] 95 % Lacie Manuel Other [employer] Other 10-24-2022 16:50-0400 Systolic blood pressure 148 mm[Hg] Lacie Manuel Other [employer] Other 10-17-2022 08:45-0400 Body height 165.1 cm Carlos Terrazas Other [employer] Other 10-17-2022 08:45-0400 Body mass index (BMI) [Ratio] 44.76 kg/m2 Carlos Terrazas Other [employer] Other 10-17-2022 08:45-0400 Body temperature 96.8 [degF] Carlos Terrazas Other [employer] Other 10-17-2022 08:45-0400 Body weight 122.02 kg Christopher Mk Other [employer] Other 10-17-2022 08:45-0400 Diastolic blood pressure 80 mm[Hg] Christopher Mk Other [employer] Other 10-17-2022 08:45-0400 Respiratory rate 20 /min Christopher Mk Other [employer] Other 10-17-2022 08:45-0400 SaO2% (BldA) [Mass fraction] 98 % Christkyleer Mk Other [employer] Other 10-17-2022 08:45-0400 Systolic blood pressure 153 mm[Hg] Ryleyer [employer] Other [employer] Other 09-13-2022 10:15-0400 Body height 165.1 cm Christkyleer Mk Other [employer] Other 09-13-2022 10:15-0400 Body mass index (BMI) [Ratio] 43.43 kg/m2 Christkyleer Mk Other [employer] Other 09-13-2022 10:15-0400 Body temperature 97.8 [degF] Christopher Mk Other [employer] Other 09-13-2022 10:15-0400 Body weight 118.39 kg Christopher Mk Other [employer] Other 09-13-2022 10:15-0400 Diastolic blood pressure 100 mm[Hg] Carlos Mk Other [employer] Other 09-13-2022 10:15-0400 Respiratory rate 20 /min Ryleykirby PhillipsMk Other [employer] Other 09-13-2022 10:15-0400 SaO2% (BldA) [Mass fraction] 100 % Ryleykirby PhillipsMk Other [employer] Other 09-13-2022 10:15-0400 Systolic blood pressure 180 mm[Hg] Carlos Mk Other [employer] Other 08-11-2022 13:35-0400 Body height 165.1 cm Lacie Manuel Other [employer] Other 08-11-2022 13:35-0400 Body mass index (BMI) [Ratio] 26.62 kg/m2 Lacie Manuel Other [employer] Other 08-11-2022 13:35-0400 Body temperature 97.8 [degF] Lacie Manuel Other [employer] Other 08-11-2022 13:35-0400 Body weight 72.58 kg Lacie Manuel Other [employer] Other 08-11-2022 13:35-0400 Respiratory rate 18 /min Lacie Manuel Other [employer] Other 08-11-2022 13:35-0400 SaO2% (BldA) [Mass fraction] 98 % Lacie Manuel Other [employer] Other 07-12-2022 13:20-0500 Body height 165.1 cm Jeff Acostacassi Other [employer] Other 07-12-2022 13:20-0500 Body mass index (BMI) [Ratio] 43.26 kg/m2 Jeff Dontrell Other [employer] Other 07-12-2022 13:20-0500 Body temperature 96.1 [degF] Jeff Jon Other [employer] Other 07-12-2022 13:20-0500 Body weight 117.94 kg Jeff Jon Other [employer] Other 07-12-2022 13:20-0500 Diastolic blood pressure 84 mm[Hg] Jeff Jon Other [employer] Other 07-12-2022 13:20-0500 Respiratory rate 18 /min Jeff Acostacassi Other [employer] Other 07-12-2022 13:20-0500 SaO2% (BldA) [Mass fraction] 99 % Jeff Acostacassi Other [employer] Other 07-12-2022 13:20-0500 Systolic blood pressure 138 mm[Hg] Jeff Jon Other [employer] Other 04-11-2022 13:40-0500 Body height 165.1 cm Jeff Acostacassi Other [employer] Other 04-11-2022 13:40-0500 Body mass index (BMI) [Ratio] 43.26 kg/m2 Jeff Jon Other [employer] Other 04-11-2022 13:40-0500 Body temperature 97.5 [degF] Jeff Jon Other [employer] Other 04-11-2022 13:40-0500 Body weight 117.94 kg Jeff Jon Other [employer] Other 04-11-2022 13:40-0500 Diastolic blood pressure 104 mm[Hg] Jeff Jon Other [employer] Other 04-11-2022 13:40-0500 Respiratory rate 18 /min Jeff Jon Other [employer] Other 04-11-2022 13:40-0500 SaO2% (BldA) [Mass fraction] 98 % Jeff Jon Other [employer] Other 04-11-2022 13:40-0500 Systolic blood pressure 144 mm[Hg] Jeff Jon Other [employer] Other 12-06-2021 12:00-0400 Body height 165.1 cm Lorena Jacky Other [employer] Other 12-06-2021 12:00-0400 Body mass index (BMI) [Ratio] 45.09 kg/m2 Lorena Jacky Other [employer] Other 12-06-2021 12:00-0400 Body temperature 96.9 [degF] Lorena Jacky Other [employer] Other 12-06-2021 12:00-0400 Body weight 122.93 kg Lorena Jacky Other [employer] Other 12-06-2021 12:00-0400 Diastolic blood pressure 88 mm[Hg] Lorena Jacky Other [employer] Other 12-06-2021 12:00-0400 Respiratory rate 20 /min Lorena Jacky Other [employer] Other 12-06-2021 12:00-0400 SaO2% (BldA) [Mass fraction] 99 % Lorena Jacky Other [employer] Other 12-06-2021 12:00-0400 Systolic blood pressure 148 mm[Hg] Lorena Jcaky Other [employer] Other 10-20-2021 11:30-0400 Body height 165.1 cm Jeff Jon Other [employer] Other 10-20-2021 11:30-0400 Body mass index (BMI) [Ratio] 46.09 kg/m2 Jeff Jon Other [employer] Other 10-20-2021 11:30-0400 Body temperature 96.8 [degF] Jeff Jon Other [employer] Other 10-20-2021 11:30-0400 Body weight 125.65 kg Jeff Jon Other [employer] Other 10-20-2021 11:30-0400 Diastolic blood pressure 88 mm[Hg] Jeff Jon Other [employer] Other 10-20-2021 11:30-0400 Respiratory rate 18 /min Jeff Jon Other [employer] Other 10-20-2021 11:30-0400 SaO2% (BldA) [Mass fraction] 96 % Jeff Jon Other [employer] Other 10-20-2021 11:30-0400 Systolic blood pressure 148 mm[Hg] Jeff Jon Other [employer] Other 10-07-2021 13:46-0400 Body weight 125.83 kg Leena Seymour MD Work Phone: [facility] 10-07-2021 13:46-0400 Diastolic blood pressure 93 mm[Hg] Leena Seymour MD Work Phone: [facility] 10-07-2021 13:46-0400 Heart rate 94 /min Leena Seymour MD Work Phone: [facility] 10-07-2021 13:46-0400 Systolic blood pressure 155 mm[Hg] Leena Seymour MD Work Phone: [facility] 03-15-2021 13:40-0400 Body height 165.1 cm Jeff Jon Other [employer] Other 03-15-2021 13:40-0400 Body mass index (BMI) [Ratio] 45.51 kg/m2 Jeff Jon Other [employer] Other 03-15-2021 13:40-0400 Body temperature 97.7 [degF] Jeff Jon Other [employer] Other 03-15-2021 13:40-0400 Body weight 124.06 kg Jeff Jon Other [employer] Other 03-15-2021 13:40-0400 Diastolic blood pressure 92 mm[Hg] Jeff Jon Other [employer] Other 03-15-2021 13:40-0400 Respiratory rate 20 /min Jeff Jon Other [employer] Other 03-15-2021 13:40-0400 SaO2% (BldA) [Mass fraction] 98 % Jeff Jon Other [employer] Other 03-15-2021 13:40-0400 Systolic blood pressure 146 mm[Hg] Jeff Jon Other [employer] Other 02-21-2021 11:00-0400 Body height 165.1 cm Christkyleer Mk Other [employer] Other 02-21-2021 11:00-0400 Body mass index (BMI) [Ratio] 44.93 kg/m2 Christkyleer Mk Other [employer] Other 02-21-2021 11:00-0400 Body temperature 97.5 [degF] Ryleyer Mk Other [employer] Other 02-21-2021 11:00-0400 Body weight 122.47 kg Christkyleer Mk Other [employer] Other 02-21-2021 11:00-0400 Diastolic blood pressure 92 mm[Hg] Ryleyer Mk Other [employer] Other 02-21-2021 11:00-0400 Respiratory rate 20 /min Ryleyer Mk Other [employer] Other 02-21-2021 11:00-0400 SaO2% (BldA) [Mass fraction] 99 % Christkyleer Mk Other [employer] Other 02-21-2021 11:00-0400 Systolic blood pressure 154 mm[Hg] Ryleyer Mk Other [employer] Other Encounters Encounter Date Encounter Type Care Provider Facility Start: 02-12-2024 End: 02-12-2024 ambulatory DO Jeff Jon Work Phone: [facility] Work Phone: Start: 02-12-2024 End: 02-12-2024 Patient encounter procedure DO Jeff Jon Work Phone: [facility] Work Phone: Start: 02-05-2024 End: 02-05-2024 ambulatory DO Jeff Jon Work Phone: [facility] Work Phone: Start: 02-05-2024 End: 02-05-2024 Patient encounter procedure DO Jeff Jon Work Phone: [facility] Work Phone: Start: 02-05-2024 Non-patient / Non-visit DO Dane Jon Work Phone: [facility] Work Phone: Start: 01-28-2024 ambulatory Jeff Jon DO F acility:[facility] Start: 01-14-2024 End: 01-14-2024 ambulatory DO Jeff Acostacassi Work Phone: [facility] Work Phone: Start: 01-14-2024 End: 01-14-2024 Patient encounter procedure DO Jeff Jon Work Phone: [facility] Work Phone: Start: 01-07-2024 ambulatory Jeff Jon DO F acility:[facility] Start: 12-27-2023 Non-patient / Non-visit DO Dane Jon Work Phone: [facility] Work Phone: Start: 12-27-2023 End: 12-27-2023 ambulatory DO Jeff Jon Work Phone: [facility] Work Phone: Start: 12-27-2023 End: 12-27-2023 Patient encounter procedure DO Jeff Dontrell Work Phone: [facility] Work Phone: Start: 12-19-2023 End: 12-19-2023 ambulatory DO Jeff Jon Work Phone: [facility] Work Phone: Start: 12-19-2023 End: 12-19-2023 Patient encounter procedure DO Jeff Jon Work Phone: [facility] Work Phone: Start: 12-12-2023 ambulatory Jeff Jon DO F acility:[facility] Start: 12-12-2023 End: 12-12-2023 ambulatory Jeff Jon DO [facility] Start: 12-05-2023 End: 12-05-2023 ambulatory DO Jeff Jon Work Phone: [facility] Work Phone: Start: 12-05-2023 End: 12-05-2023 Patient encounter procedure [facility] Work Phone: Start: 10-29-2023 End: 10-29-2023 ambulatory [facility] Work Phone: Start: 10-29-2023 End: 10-29-2023 Patient encounter procedure [facility] Family Medicine Saman Work Phone: Start: 10-25-2023 Non-patient / Non-visit [facility] Work Phone: Start: 10-23-2023 End: 10-23-2023 ambulatory JENNIE H APOLINAR Not Available Start: 09-26-2023 End: 09-26-2023 ambulatory [facility] Work Phone: Start: 09-26-2023 End: 09-26-2023 Patient encounter procedure [facility] Work Phone: Start: 09-24-2023 End: 09-24-2023 ambulatory JENNIE H TIMMIS Not Available Start: 09-18-2023 End: 09-18-2023 ambulatory SVETLANA SINGH Not Available Start: 09-05-2023 End: 09-05-2023 ambulatory JENNIE H TIMMIS Not Available Start: 08-28-2023 End: 08-28-2023 ambulatory [facility] Work Phone: Start: 08-28-2023 End: 08-28-2023 Patient encounter procedure [facility] Work Phone: Start: 08-23-2023 Non-patient / Non-visit [facility] Work Phone: Start: 08-21-2023 End: 08-21-2023 ambulatory JENNIE H TIMMIS Not Available Start: 06-29-2023 End: 06-29-2023 ambulatory Jeff Jon Other [employer] Other Start: 06-29-2023 Telephone encounter Jeff Jon [facility] Start: 05-10-2023 End: 05-11-2023 ambulatory DO Casper Nguyen Facility:[facility] Start: 05-10-2023 End: 05-10-2023 Pain Management Casper Nguyen [facility] Start: 04-30-2023 End: 04-30-2023 ambulatory SHARON D HILLS Not Available Start: 04-24-2023 End: 04-24-2023 ambulatory SHARON D HILLS Not Available Start: 04-18-2023 End: 04-18-2023 ambulatory SHARON D HILLS Not Available Start: 04-04-2023 End: 04-04-2023 ambulatory Jeff Jon Other [employer] Other Start: 04-04-2023 [facility] Start: 03-19-2023 End: 03-19-2023 ambulatory Christopher Mk Other [employer] Other Start: 03-19-2023 Office outpatient vi sit 15 minutes Christopher Mk [facility] Start: 02-22-2023 End: 02-22-2023 ambulatory Jeff Jon Other [employer] Other Start: 02-22-2023 Office outpatient vi sit 25 minutes Jeff Jon [facility] Start: 11-24-2022 End: 11-24-2022 ambulatory Jeff Jon Other [employer] Other Start: 11-24-2022 Telephone encounter Jeff Jon [facility] Start: 10-24-2022 End: 10-24-2022 ambulatory Lacie Manuel Other [employer] Other Start: 10-24-2022 Office outpatient vi sit 15 minutes Lacie Kaleb [facility] Start: 10-17-2022 End: 10-17-2022 ambulatory Ryleyer Mk Other [employer] Other Start: 10-17-2022 Office outpatient vi sit 15 minutes Christopher Mk [facility] Start: 10-03-[address] Gela Moreau Facility: Start: 09-27-2022 Patient encounter procedure Jeff Jon Work Phone: [place] [id number] DO Work Phone: Start: 09-27-[address] Jeff Jon Facility: Start: 09-14-2022 Encounter for other preprocedural examination [facility] Start: 09-14-2022 Encounter for preprocedural cardiovascular examination [facility] Start: 09-14-2022 Encounter for preprocedural laboratory examination JENNIE [facility] Start: 09-14-2022 [facility] Start: 09-13-2022 End: 09-13-2022 ambulatory Carlos Terrazas Other [employer] Other Start: 09-13-2022 Office outpatient vi sit 25 minutes Carlos Terrazas [facility] Start: 09-12-[address] JEFF JON Facilit y:[facility] Start: 09-08-2022 End: 09-09-2022 Encounter for preprocedural laboratory examination DR JEFF JON Facility:[facility] Start: 09-08-2022 End: 09-09-[address] JEFF JON [employer] Other Start: 09-08-2022 Telephone encounter Jeff Jon [facility] Start: 09-01-2022 End: 09-01-2022 ambulatory Jeff Jon Other [employer] Other Start: 09-01-2022 Telephone encounter Jeff Jon [facility] Start: 08-21-2022 End: 08-21-2022 ambulatory ANASTASIA WADE Facility:[facility] Start: 08-18-2022 End: 08-18-[address] Jeff Jon [place] [employer] Other Start: 08-18-2022 Telephone encounter Jeff Jon [facility] Start: 08-17-2022 End: 08-17-2022 ambulatory MARCELL ASHLEY . Facility:[facility] Start: 08-14-2022 End: 08-14-2022 ambulatory Jeff Jon Other [employer] Other Start: 08-14-2022 Telephone encounter Jeff Jon [facility] Start: 08-11-2022 End: 08-11-2022 ambulatory Jeff Jon Other [employer] Other Start: 08-11-2022 Office outpatient vi sit 15 minutes Lacie Manuel [facility] Start: 08-11-2022 Telephone encounter Jeff Jon [facility] Start: 08-07-2022 End: 08-07-2022 ambulatory Jeff Jon Other [employer] Other Start: 08-07-2022 Telephone encounter Jeff Jon [facility] Start: 07-12-2022 End: 07-12-2022 ambulatory Jeff Jon Other [employer] Other Start: 07-12-2022 Office outpatient vi sit 25 minutes Jeff Jon [facility] Start: 07-12-2022 Telephone encounter Jeff Jon [facility] [place] Start: 07-10-2022 End: 07-11-[address] JEFF JON Facility:[facility] Start: 06-14-2022 End: 06-14-2022 ambulatory Jeff Jon Other [employer] Other Start: 06-14-2022 Telephone encounter Jeff Jon [facility] Start: 06-07-2022 End: 06-07-2022 ambulatory Jeff Jon Other [employer] Other Start: 06-07-2022 Telephone encounter Jeff Jon [facility] Start: 04-11-2022 End: 04-11-2022 ambulatory Jeff Jon Other [employer] Other Start: 04-11-2022 Office outpatient vi sit 25 minutes Jeff Jon [facility] Start: 04-05-2022 End: 04-06-[address] JEFF JON Facility:[facility] Start: 04-04-2022 End: 04-04-2022 ambulatory Jeff Jon Other [employer] Other Start: 04-04-2022 Telephone encounter Jeff Jon [facility] Start: 04-03-2022 End: 04-03-2022 ambulatory Jeff Jon Other [employer] Other Start: 04-03-2022 Tele[facility] Start: 03-21-2022 End: 03-21-2022 ambulatory Jeff Jon Other [employer] Other Start: 03-21-2022 Telephone encounter [facility] Start: 12-09-2021 End: 12-09-2021 ambulatory Jeff Jon Other [employer] Other Start: 12-09-2021 Telephone encounter [facility] Start: 12-06-2021 End: 12-06-2021 ambulatory Lorena Jacky Other [employer] Other Start: 12-06-2021 Office outpatient vi sit 25 minutes Lorena Jacky [facility] Start: 12-06-2021 Telephone encounter Lorena Jacky [facility] Start: 11-29-2021 End: 11-30-[address] JEFF JON Facility: Start: 10-20-2021 End: 10-20-2021 ambulatory Jeff Jon Other [employer] Other Start: 10-20-2021 Office outpatient vi sit 25 minutes Jeff Jon [facility] Start: 10-13-2021 End: 10-13-2021 ambulatory JEFF JON Facility:[facility] Start: 10-13-2021 End: 10-13-2021 ambulatory Anila Jimenez APRN.CNP Work Phone: Endocrinology Comment on above: Type 2 diabetes shreya itus with hyperglycemia, without long-term current use of insulin (HCC) (Primary Dx); Heraclio's disease Start: 10-13-2021 End: 10-13-2021 Telemedicine consultation with patient Anila Jimenez APRN.SHEEP STICKER Work Phone: [facility] Start: 10-13-2021 Telephone encounter Anila Simms y STADIUM MANAGER.SHEEP STICKER Work Phone: Endocrinology Comment on above: Appointment Start: 10-07-2021 End: 10-08-2021 ambulatory JEFF JON Facility:[facility] Start: 10-07-2021 End: 10-07-2021 Patient encounter procedure Leena Seymour MD Work Phone: Rheumatology Comment on above: Fibromyalgia (Primar y Dx); ALDEN (generalized anxiety disorder) Start: 10-03-2021 Telephone encounter Asad adrian MD Work Phone: Endocrinology Comment on above: Lab Orders Start: 09-29-[address] JEFF JON Facilit y:[facility] Start: 09-28-2021 Telephone encounter Jeff Jon [facility] Start: 09-28-2021 End: 09-28-[address] JEFF JON [facility] [employer] Other Start: 09-20-2021 End: 09-20-2021 ambulatory Carlos Terrazas Other [employer] Other Start: 09-20-2021 Telephone encounter Carlos juárez [facility] Start: 08-22-2021 End: 08-22-2021 ambulatory Carlos Terrazas Other [employer] Other Start: 08-22-2021 Telephone encounter Jeff Jon [facility] Start: 07-22-2021 End: 07-22-2021 ambulatory ASAD ANSARI Facility:[facility] Start: 07-14-2021 End: 07-14-2021 ambulatory Jeff Jon Other [employer] Other Start: 07-14-2021 Telephone encounter Jeff Jon [facility] Start: 07-04-2021 End: 07-04-2021 ambulatory Jeff Jon Other [employer] Other Start: 07-04-2021 Telephone encounter Jeff Jon [facility] [place] Start: 06-28-2021 End: 06-28-2021 ambulatory Jeff Jon Other [employer] Other Start: 06-28-2021 Telephone encounter Jeff Jon [facility] [place] Start: 06-22-2021 Telephone encounter Asad adrian MD Work Phone: Endocrinology Comment on above: Patient Question Start: 06-16-2021 End: 06-17-2021 ambulatory JEFF JON Facility:[facility] Start: 06-16-2021 End: 06-17-2021 ambulatory ASAD ANSARI Facility:[facility] Start: 05-25-2021 End: 05-25-2021 ambulatory Jeff Shanecassi Other [employer] Other Start: 05-25-2021 Telephone encounter Jeff Acostacassi [facility] [place] Start: 05-11-2021 End: 05-11-2021 ambulatory Jeff Jon Other [employer] Other Start: 05-11-2021 Telephone encounter Jeff Jon [facility] Start: 04-27-2021 End: 04-27-2021 ambulatory Jeff Jon Other [employer] Other Start: 04-27-2021 Telephone encounter Jeff Jon [facility] Start: 04-19-2021 End: 04-19-2021 ambulatory Carl Valdivia Other [employer] Other Start: 04-19-2021 Telephone encounter Carl tam [facility] Start: 03-16-2021 Telephone encounter Vandana quintana [facility] Start: 03-15-2021 Office outpatient vi sit 15 minutes Jeff Jon [facility] [place] Start: 02-24-2021 Telephone encounter Jeff Jon [facility] Start: 02-21-2021 Office outpatient vi sit 15 minutes Carlos Terrazas [facility] Start: 09-26-2018 End: 09-29-2018 Patient encounter procedure JEFF Lilli JON [facility] Procedures Date Procedure Procedure Detail Performing Clinician Start: 12-05-2023 X-ray of lumbar spin e, four views DO Jeff Dontrell Work Phone: Start: 12-05-2023 Plain x-ray of pelvi s and lower extremity DO Jeff Jon Work Phone: Start: 10-06-2021 Adult depression scr eening assessment Leena Seymour MD Work Phone: Start: 09-26-2018 Mri brain brain stem w/o w/contrast material JEFF JON Abdominal hysterectomy Andrew Nguyen Cholecystectomy Casper paul Laparoscopy Casper Nguyen Myringotomy and inse rtion of T tube Casper Nguyen Comment on above: x2 Tonsillectomy Casper Nguyen Plan of Treatment Date Care Activity Detail Author Start: 06-16-2024 DIABETES SCREEN DIABETES SCREEN [facility] Start: 09-26-2023 Patient referral [facility] Work Phone: Start: 10-06-2022 Adult depression screening assessment DEPRESSION SCREENING [facility] Start: 04-09-2022 Hemoglobin A1c/Hemoglobin.total in Blood HBA1C [facility] Start: 01-19-2022 Influenza vaccination INFLUENZA (#1) [facility] Start: 11-25-2021 End: 01-25-2022 T3 FREE BLD T3 FREE BLD Lab Routine Heraclio's disease Expected: 11/25/2021, Expires: 01/25/2022 [facility] Work Phone: Comment on above: Expected: 11/25/2021 , Expires: 01/25/2022 Start: 11-25-2021 End: 01-25-2022 T4 FREE/FREE THYROX T4 FREE/FREE THYROX Lab Routine Heraclio's disease Expected: 11/25/2021, Expires: 01/25/2022 [facility] Work Phone: Comment on above: Expected: 11/25/2021 , Expires: 01/25/2022 Start: 11-25-2021 End: 01-25-2022 Thyrotropin [Units/volume] in Serum or Plasma TSH BLD Lab Routine Heraclio's disease Expected: 11/25/2021, Expires: 01/25/2022 [facility] Work Phone: Comment on above: Expected: 11/25/2021 , Expires: 01/25/2022 Start: 10-07-2021 End: 12-07-2021 PROTEIN ELECTROPHORESIS SERUM W/INTERP [facility] Work Phone: Comment on above: Expected: 10/07/2021 , Expires: 12/07/2021 Start: 10-05-2021 End: 12-05-2021 Comprehensive metabolic 2000 panel - Serum or Plasma COMP METABOLIC PANEL Lab Routine Controlled type 2 diabetes mellitus without complication, without long-term current use of insulin (HCC) Expected: 10/05/2021, Expires: 12/05/2021 [facility] Work Phone: Comment on above: Expected: 10/05/2021 , Expires: 12/05/2021 Start: 10-05-2021 End: 12-05-2021 Hemoglobin A1c/Hemoglobin.total in Blood HGB A1C Lab Routine Controlled type 2 diabetes mellitus without complication, without long-term current use of insulin (HCC) Expected: 10/05/2021, Expires: 12/05/2021 [facility] Work Phone: Comment on above: Expected: 10/05/2021 , Expires: 12/05/2021 Start: 10-05-2021 End: 12-05-2021 T3 FREE BLD T3 FREE BLD Lab Routine Acquired hypothyroidism Expected: 10/05/2021, Expires: 12/05/2021 [facility] Work Phone: Comment on above: Expected: 10/05/2021 , Expires: 12/05/2021 Start: 10-05-2021 End: 07-18-2022 T4 FREE/FREE THYROX T4 FREE/FREE THYROX Lab Routine Acquired hypothyroidism Expected: 10/05/2021, Expires: 12/05/2021 [facility] Work Phone: Comment on above: Expected: 10/05/2021 , Expires: 12/05/2021 Start: 10-05-2021 End: 12-05-2021 Thyrotropin [Units/volume] in Serum or Plasma TSH BLD Lab Routine Acquired hypothyroidism Expected: 10/05/2021, Expires: 12/05/2021 [facility] Work Phone: Comment on above: Expected: 10/05/2021 , Expires: 12/05/2021 Start: 05-21-2021 DEPRESSION ASSESSMENT DEPRESSION ASS ESSMENT [facility] Start: 02-23-2021 COVID-19 VACCINE (3 - Booster for Pfizer series) COVID-19 VACCINE (3 - Booster for Pfizer series) [facility] Start: 11-18-2020 COVID-19 VACCINE (3 - Booster for Pfizer series) COVID-19 VACCINE (3 - Booster for Pfizer series) [facility] Start: 09-10-2017 SHINGRIX VACCINE (1 of 2) MONDRAGON GRIX VACCINE (1 of 2) [facility] Start: 09-10-2012 COLOGUARD (FIT-DNA) COLOGUARD (FIT-D NA) [facility] Start: 09-10-2012 Colonoscopy COLONOSCOPY [facility] Start: 09-10-2012 COLORECTAL CANCER SCREENING COLORECTAL CANCER SCREENING [facility] Start: 09-10-[address] COLONOGRAPHY [facility] Start: 09-10-2012 FECAL OCCULT BLOOD FECAL OCCULT BLOO D [facility] Start: 09-10-2012 LIPID SCREEN LIPID SCREEN [facility] Start: 09-10-2012 SIGMOIDOSCOPY SIGMOIDOSCOPY [facility] Start: 2007 Mammography MAMMOGRAM [facility] Start: 09-10-1997 HPV TESTING HPV TESTING [facility] Start: 09-10-1988 PAP TESTING PAP TESTING [facility] Start: 09-10-1986 HEPATITIS B (1 of 3 - Risk 3-dose series) HEPATITIS B (1 of 3 - Risk 3-dose series) [facility] Start: 09-10-1986 Urine microalbumin profile DTAP,TDAP,TD (1 - Tdap) [facility] Start: 09-10-1985 ANNUAL PCP TEAM HRIS DEVELOPER KRYSTAL DISEASE VISIT ANNUAL PCP TEAM CHRONIC DISEASE VISIT [facility] Start: 09-10-1985 Hepatitis B surface antibody level LDL CHOLESTEROL [facility] Start: 09-10-1985 HIV SCREENING HIV SCREENING [facility] Start: 1979 Adult depression screening assessment DEPRESSION SCREENING [facility] Start: 09-10-1977 3 comp foot exam completed DIABETIC FOOT EXAM [facility] Start: 09-10-1977 Hepatitis B screening URINE AL BUMIN:CREATININE RATIO [facility] Start: 09-10-1977 Hepatitis C antibody , confirmatory test DILATED RETINAL EXAM [facility] Start: 09-10-1973 PNEUMOCOCCAL (1 - PCV) PNEUMOCOCCAL (1 - PCV) [facility] Start: 1967 HEPATITIS B (1 of 3 - 3-dose series) HEPATITIS B (1 of 3 - 3-dose series) [facility] Comprehensive metabo lic 2000 panel - Serum or Plasma [facility] Patient referral [facility] Work Phone: XR Hip - left 2 Views [facility] XR Hip - right 2 Views [facility] XR Lumbar spine 4 Views [facility] Immunizations Immunization Date Immunization Notes Care Provider Bryon cuenca 03-15-2021 influenza, seasonal, injectable Patient Objection Vandana Jordan Other [employer] [facility] [employer] Other 09-23-2020 COVID-19 Vaccine Pfizer - Documentation Purposes Only Christopher Mk Other [facility] 09-02-2020 COVID-19 Vaccine Pfizer - Documentation Purposes Only Christopher Mk Other [facility] 09-09-2018 Rocephin 500 mg Carlos Mk Other [employer] Other 08-11-2016 Toradol per 15 mg Jose Enrique r Mk Other [employer] [facility] [employer] Other 02-09-2015 TB Test Carlos Terrazas Other [facility] [employer] Other 12-16-2011 tetanus toxoid, reduced diphtheria toxoid, and acellular pertussis vaccine, adsorbed Carlos Terrazas Other [facility] NEGATED: Highlighted row has not occurred! 1 influenza, seasonal, injectable Patient Objection Jeff Jon Other [facility] Payers Date Payer Category Payer Self-pay [id number] 2020 Private Health Insurance [employer] A ETNA CHOICE POS II [id number] 2020-Present [phone] [address] [place] [address] POS [id number]. [id number] 2020 Private Health Insurance [id number]. [id number] 2018 Unknown [id number] 1967 Unknown [id number] 2.16.840.1.155950.3.579.2. 182 1967 Unknown [id number] 2.16.840.1.895699.3.579.2. 593 1967 Unknown [id number] 2.16.840.1.273070.3.579.2. 593 1967 Unknown [id number] 2.16.840.1.075648.3.579.2. 593 1967 Unknown [id number] 2.16.840.1.354198.3.579.2. 593 1967 Unknown [id number] 2.16.840.1.276444.3.579.2. 593 1967 Unknown [id number] 2.16.840.1.900554.3.579.2. 593 1967 Unknown [id number] 2.16.840.1.318513.3.579.2. 593 1967 Unknown [id number] 2.16.840.1.779047.3.579.2. 593 1967 Unknown [id number] 2.16.840.1.782111.3.579.2. 593 1967 Unknown [id number] 2.16.840.1.544566.3.579.2. 356 1967 Unknown [id number] 2.16.840.1.578252.3.579.2. 356 1967 Unknown [id number] 2.16.840.1.630633.3.579.2. 356 1967 Unknown [id number] 2.16.840.1.758947.3.579.2. 727 1967 Unknown [id number] 2.16.840.1.509754.3.579.2. 125 1967 Unknown [id number] 2.16.840.1.210057.3.579.2. 1258 1967 Unknown [id number] 2.16.840.1.749976.3.579.2. 125 1967 Unknown [id number] 2.16.840.1.020704.3.579.2. 125 1967 Unknown [id number] 2.16.840.1.583026.3.579.2. 1259 1967 Unknown [id number] 2.16.840.1.608495.3.579.2. 125 1967 Unknown [id number] 2.16.840.1.045697.3.579.2. 1259 1967 Unknown [id number] 2.16.840.1.461963.3.579.2. 1259 1967 Unknown [id number] 2.16.840.1.438055.3.579.2. 1259 1967 Unknown [id number] 2.16.840.1.839876.3.579.2. 196 1967 Unknown [id number] 2.16.840.1.024808.3.579.2. 196 1967 Unknown [id number] 2.16.840.1.947855.3.579.2. 196 1967 Unknown [id number] 2.16.840.1.703284.3.579.2. 196 1959 Private Health Insurance [id number] 2.16.840.1.346839.19 Unknown [employer] Private Health Insurance [id number] Unknown [id number] 2.16.840.1.035167.3.579.2. 531 Social History Date Type Detail Facility Start: 09-20-2015 End: 08-28-2023 Tobacco smoking status NHIS Never smoked tobacco [facility] Start: 09-20-2015 Tobacco use and exposure Smokeless tobacco non-user [facility] Start: 06-16-2021 End: 10-07-2021 Alcohol intake Not Asked [facility] Start: 1965 Sex Assigned At Female [facility] Start: 09-23-2021 End: 10-07-2021 Exposure to SARS-CoV-2 (event) Not sure [facility] Start: 10-13-2021 Alcohol intake Ex-drinker (finding) [facility] Start: 10-13-2021 History SDOH Alcohol Comment rarely [facility] Sex Assigned At [facility] Functional Status Date Assessment Result Facility 05-10-2023 Functional Status N/A [facility] Clinical Notes 12-16-2011 to 10-29-2023 Note Date & Type Note Facility 10-29-2023 Evaluation note Authored October 29, 2023 3:26 pm The above note written by __ _Gail Saul____ acting as human recorder, note dictated by Dr. Jones .I performed the above HPI, ROS, and Examination. I formulated and dictated the treatment plan and was present for entire encounter. Jeff Jon D.O. Author Jeff Jon [facility] Authored September 26, 2023 3:16pm The above note written by __ _Gail Saul____ acting as human recorder, note dictated by Dr. Jones .I performed the above HPI, ROS, and Examination. I formulated and dictated the treatment plan and was present for entire encounter. Jeff Jon D.O. [facility] Work Phone: 1(254) 508-317906-10-2024 Evaluation note* Author Jeff Jon [facility] Authored October 29, 2023 3:26 pm The above note written by __ _Gail Saul____ acting as human recorder, note dictated by Dr. Jones .I performed the above HPI, ROS, and Examination. I formulated and dictated the treatment plan and was present for entire encounter. eJff Jon D.O. [facility] Work Phone: 1(543) 571-106805-08-2024 Hospital Discharge instructionsAmbulatory Orders* Referral to Pain Management Time Frame: 09/26/23, Location: None [facility] Work Phone: 1(651) 581-103404-09-2024 Evaluation note* Author Jeff Jon [facility] Authored August 28, 2023 11:5 9am The above note written by __ _Gail Saul____ acting as human recorder, note dictated by Dr. Jones .I performed the above HPI, ROS, and Examination. I formulated and dictated the treatment plan and was present for entire encounter. Jeff Jon D.O. [facility] Work Phone: 1(836) 261-305504-09-2024 Evaluation note* Author Jeff Jon [facility] Authored August 28, 2023 11:5 9am The above note written by __ _Gail Saul____ acting as human recorder, note dictated by Dr. Jones .I performed the above HPI, ROS, and Examination. I formulated and dictated the treatment plan and was present for entire encounter. Jeff Jon D.O. Author Jeff Jon [facility] Authored September 26, 2023 3:16pm The above note written by __ _Gail Saul____ acting as human recorder, note dictated by Dr. Jones .I performed the above HPI, ROS, and Examination. I formulated and dictated the treatment plan and was present for entire encounter. Jeff Jon D.O. [facility] Work Phone: 1(730) 911-449102-09-2024 Evaluation note* Encounter Date Diagnosis Assessment Notes Treatment Notes Treatment Clinical Notes Jun, Elevated blood pressure (ICD-10 - R03.0) [employer] Other 12-21-2023 Evaluation + Plan noteExtracted from: Title:Pain Management * Author:Eugenio Nguyen DO Date:05/10/23 Impression and Plan History, physical examination, and personal review of pertinent imaging results indicate a diagnosis of: -Lumbar stenosis with neurogenic claudication and lumbar radiculopathy -MRI was reviewed and showed moderate central canal stenosis at L3/4, moderate to severe central canal stenosis at L4/5 and disc bulge with annular tear and high intensity zone at L5/S1 Plan: -Will start on amitriptyline 25 mg at bedtime -Will plan to perform an L5/S1 interlaminar epidural steroid injection under fluoroscopic guidance -Will follow-up 1 month after the procedure or sooner if any issues arise Patient was counseled on the above diagnosis and treatment, all questions were answered and patient agrees to adhere to the plan above. Risk and benefits of appropriate procedures and medications were reviewed as well with patient, who voiced understanding and agreeance. Patient was counseled on smoking cessation and/or continuing to abstain from nicotine/tobacco products as appropriate based on history; as smoking/nicotine can contribute to increased pain overall and decreased wound healing. Patient counseled on maintaining a healthy BMI as part of the total treatment of their pain and to reduce stress/strain on joints. Patient invited to return or call with any questions or concerns that arise. [facility]11-15-2023 Evaluation note* Encounter Date Diagnosis Assessment Notes Treatment Notes Treatment Clinical Notes Mar, Other chronic pain (ICD-10 - G89.29) Mar, GERD (gastroesophageal reflux disease) (ICD-10 - K21.9) Mar, Asthma (ICD-10 - J45.909) [employer] Other 10-30-2023 Evaluation note* Encounter Date Diagnosis Assessment Notes Treatment Notes Treatment Clinical Notes Feb, Asthma (ICD-10 - J45.909) Feb, Seasonal allergies (ICD-10 - J30.2) Feb, GERD (gastroesophageal reflux disease) (ICD-10 - K21.9) [employer] Other 10-05-2023 Evaluation note* Encounter Date Diagnosis Assessment Notes Treatment Notes Treatment Clinical Notes Feb, Hypothyroidism, unspecified (ICD-10 - E03.9) Discussed thyroid results with patient today. TSH is 2.141. Free T3 is 2.59. Free T4 is 1.44. I would like her to continue with the same dose of Levothyroxine. Feb, Diabetes (ICD-10 - E11.9) She has only been taking a total of 2 Metformin per day. She admits she has been lousy about watching her diet. Some days she does not eat at all and other days she only eats cookies and candy. Her glucose was 120. HgA1C is elevated at 6.7. I did recommend that she cut back on her intake of carbs and sugars. She is active. She feels very poorly at this time, so I am going to have her stop the Metformin and see if this helps her feel better. Will also order lab work. I will have her start Glimepiride while she is off the Metformin. Side effects/risks/benefits of medication were reviewed. Guidance is given on how to take the medication. She is going to [place] next week, so she will not make the change until she comes home. I want her to call me by the end of that first month with how she feels having come off the Metformin and being on the new medication. Take the medication with first meal of the day to prevent low sugars. Signs/symptoms of hypoglycemia were reviewed. Feb, Elevated blood pressure (ICD-10 - R03.0) She has not been checking her blood pressure recently, but when she did it was not great but better than it had been. We discussed that her blood pressure is not under control. She feels her pressure has been worse since she started the Losartan. I did explain to her that the medication should not be causing her blood pressure to be elevated and I did recommend that we increase the dose to help get her blood pressure under better control. She agrees. Guidance is given on how to take the increased dose. She can take 2 of the 25 MG tablets together until she runs low and then she can take a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 Cholecalciferol, Vitamin D3, 125 mcg (5,000 unit) cap - montelukast (SINGULAIR) 10 mg tablet Take 10 mg by mouth daily at bedtime. - MULTIVIT-MINERALS/FERROUS GLUC (CENTRAM-CARE ORAL) Take by mouth twice daily. - esomeprazole mag trihydrate(NEXIUM 40 MG CAP) Take one(1) capsule daily. - mometasone furoate(NASONEX 50 MCG/ACTUATION SPRAY) [employer] twice in each nostril once daily. - cetirizine hcl(ZYRTEC 10 MG TAB) Take one(1) tablet daily. - fluticasone/salmeterol(ADVAIR DISKUS 250 MCG-50 MCG/DOSE FOR INHALATION) Take one(1) inhalation twice daily; rinse and gargle mouth with water after each use. No current facility-administered medications for this visit. Immunization History Administered Date(s) Administered COVID-19 vaccine, age 12+ yr ([employer] - PURPLE TOP) 09/02/2020 09/23/2020 Social History Tobacco Use - Smoking status: Never Smoker - Smokeless tobacco: Never Used Substance Use Topics - Alcohol use: Not on file - Drug use: Not on file PAST MEDICAL HISTORY Diagnosis Date - Heraclio's disease - Type 2 diabetes mellitus with hyperglycemia (HCC) No family history on file. No past surgical history on file. I have confirmed and edited as necessary, the PFSH and ROS obtained by others. HISTORY OF PRESENT ILLNESS: Ms. Pathak is a 56 year old female presenting for DM Type 2, hypothyroidism follow up. The patient is new to me. Last saw Dr. Ansari and synthroid was increased to 224 mcg per day from 200 mcg. Metformin was increased as well. Also known history of prediabetes, heraclio, obesity, steroids use Family history re: DM : yes Personal history of pancreatitis no Personal or family history of MTC (medullary thyroid carcinoma) and Multiple Endocrine Neoplasia syndrome type 2 (MEN 2) no Date of diagnosis 6-7 years ago, only medicated till 2020 Heraclio dx in 2015 Concerns/ Chief complaints: Labs done and would like to follow up on the thyroid and diabetes Not feeling well Dx with spinal stenosis and have pain Current Diabetes Medications: Metformin XR 1 gm in the AM and 1 gm in the afternoon (not taking them twice a day forgets the morning dose) Previous Diabetes Medications - metformin IR (not able to tolerate) A1C today not due Last A1C 7.2% Patient's last HgA1C was Hemoglobin A1C (%) Date Value 10/07/2021 7.2 06/16/2021 7.5 03/30/2016 6.6 MONITORING: she reports checking her glucose with One touch meter. Every other day check range 140-170, 180's fasting over night. - Hypoglycemia frequency: none Regarding symptoms of hyperglycemia, is not experiencing any symptoms such as polyuria, polydipsia, nocturia or rapid weight loss or blurry vision, Overall, the patient has no acute complaints at this time. Diet: ( bad eating habit ) lots of stress lately so going for comfort food 1 / per day 0 snacks Type: cold cut sandwich, chips or potatoes salad. Left overs sometimes Not enough veggies or protein Exercise: Walk, on her feet all day COMPLICATIONS: Complications of Diabetes include: hypertension and hyperlipidemia Last Ophthalmology exam schedule in 2 weeks Last Podiatry exam due INEZ/ARB none Component Latest Ref Rng AND Units 10/07/2021 Protein, Total 6.3 - 8.0 g/dL 7.3 Albumin 3.9 - 4.9 g/dL 4.8 Calcium 8.5 - 10.2 mg/dL 10.3 (H) Bilirubin, Total 0.2 - 1.3 mg/dL 0.5 Alkaline Phosphatase 34 - 123 U/L 72 AST 13 - 35 U/L 17 ALT 7 - 38 U/L 24 Glucose 74 - 99 mg/dL 124 (H) BUN 7 - 21 mg/dL 18 Creatinine 0.58 - 0.96 mg/dL 0.70 Sodium 136 - 144 mmol/L 139 Potassium 3.7 - 5.1 mmol/L 4.1 Chloride 97 - 105 mmol/L 100 CO2 22 - 30 mmol/L 28 Anion Gap 9 - 18 mmol/L 11 eGFR >=60 mL/min/1.73m? 103 Corrected (more content not included)...[facility]05-26-2022 History of Present illness Narrative* Anila Jimenez APRN.SHEEP STICKER - 10/13/2021 4:15 PM EDT ENDOCRINOLOGY, DIABETES & METABOLISM DIABETES FOLLOW UP VISIT This Team Access Model visit is a phone encounter and Canelo Lawson has consented to this virtual encounter. This is a virtual visit using [employer] video visit. It is a required patient-provider interaction for the medical decision making as documented below. Date: 10/10/21 KATIANA: 07/22/2021 ALLERGIES Allergen Reactions Biaxin Xl [Clarithr* Itching nerve difficulty Ceftin [Cefuroxime * Itching nerve difficulty Fluconazole Itching Levaquin [Levofloxa* Itching nerve difficulty Lorazepam Other: See Comments Metformin Other: See Comments Tequin [Gatifloxaci* Itching nerve difficulty Current Outpatient Medications Medication Sig venlafaxine ER (EFFEXOR XR) 37.5 mg 24 hr capsule take one a day, if tolerated after two weeks increase to two metFORMIN ER (GLUCOPHAGE XR) 500 mg 24 hr tablet Take 2 tablets by mouth twice daily. levothyroxine (SYNTHROID) 112 mcg tablet Take 2 tablets by mouth once daily. cyclobenzaprine (FLEXERIL) 10 mg tablet Cholecalciferol, Vitamin D3, 125 mcg (5,000 unit) cap montelukast (SINGULAIR) 10 mg tablet Take 10 mg by mouth daily at bedtime. MULTIVIT-MINERALS/FERROUS GLUC (CENTRAM-CARE ORAL) Take by mouth twice daily. esomeprazole mag trihydrate(NEXIUM 40 MG CAP) Take one(1) capsule daily. mometasone furoate(NASONEX 50 MCG/ACTUATION SPRAY) [employer] twice in each nostril once daily. cetirizine hcl(ZYRTEC 10 MG TAB) Take one(1) tablet daily. fluticasone/salmeterol(ADVAIR DISKUS 250 MCG-50 MCG/DOSE FOR INHALATION) Take one(1) inhalation twice daily; rinse and gargle mouth with water after each use. No current facility-administered medications for this visit. Immunization History Administered Date(s) Administered COVID-19 vaccine, age 12+ yr ([employer] - PURPLE TOP) 09/02/2020 09/23/2020 Social History Tobacco Use Smoking status: Never Smoker Smokeless tobacco: Never Used Substance Use Topics Alcohol use: Not on file Drug use: Not on file PAST MEDICAL HISTORY Diagnosis Date Heraclio's disease Type 2 diabetes mellitus with hyperglycemia (HCC) No family history on file. No past surgical history on file. I have confirmed and edited as necessary, the PFSH and ROS obtained by others. HISTORY OF PRESENT ILLNESS: Ms. Pathak is a 56 year old female presenting for DM Type 2, hypothyroidism follow up. The patient is new to me. Last saw Dr. Ansari and synthroid was increased to 224 mcg per day from 200 mcg. Metformin was increased as well. Also known history of prediabetes, heraclio, obesity, steroids use Family history re: DM : yes Personal history of pancreatitis no Personal or family history of MTC (medullary thyroid carcinoma) and Multiple Endocrine Neoplasia syndrome type 2 (MEN 2) no Date of diagnosis 6-7 years ago, only medicated till 2020 Heraclio dx in 2016 Concerns/ Chief complaints: Labs done and would like to follow up on the thyroid and diabetes Not feeling well Dx with spinal stenosis and have pain Current Diabetes Medications: Metformin XR 1 gm in the AM and 1 gm in the afternoon (not taking them twice a day forgets the morning dose) Previous Diabetes Medications metformin IR (not able to tolerate) A1C today not due Last A1C 7.2% Patient's last HgA1C was Hemoglobin A1C (%) Date Value 10/07/2021 7.2 06/16/2021 7.5 03/30/2016 6.6 MONITORING: she reports checking her glucose with One touch meter. Every other day check range 140-170, 180's fasting over night. Hypoglycemia frequency: none Regarding symptoms of hyperglycemia, is not experiencing any symptoms such as polyuria, polydipsia,nocturia or rapid weight loss or blurry vision, Overall, the patient has no acute complaints at this time. Diet: ( bad eating habit ) lots of stress lately so going for comfort food 1 / per day 0 snacks Type: cold cut sandwich, chips or potatoes salad. Left overs sometimes Not enough veggies or protein Exercise: Walk, on her feet all day COMPLICATIONS: Complications of Diabetes include: hypertension and hyperlipidemia Last Ophthalmology exam schedule in 2 weeks Last Podiatry exam due INEZ/ARB none Component Latest Ref Rng & Units 10/07/2021 Protein, Total 6.3 - 8.0 g/dL 7.3 Albumin 3.9 - 4.9 g/dL 4.8 Calcium 8.5 - 10.2 mg/dL 10.3 (H) Bilirubin, Total 0.2 - 1.3 mg/dL 0.5 Alkaline Phosphatase 34 - 123 U/L 72 AST 13 - 35 U/L 17 ALT 7 - 38 U/L 24 Glucose 74 - 99 mg/dL 124 (H) BUN 7 - 21 mg/dL 18 Creatinine 0.58 - 0.96 mg/dL 0.70 Sodium 136 - 144 mmol/L 139 Potassium 3.7 - 5.1 mmol/L 4.1 Chloride 97 - 105 mmol/L 100 CO2 22 - 30 mmol/L 28 Anion Gap 9 - 18 mmol/L 11 eGFR >=60 mL/min/1.73m 103 Corrected Calcium is 9.66 mg/dl using 4 g/dl albumin STATIN none THYROID Synthroid 224 mcg daily Component Latest Ref Rng & Units 10/07/2021 TSH 0.270 - 4.200 mIU/L 0.228 (L) Free T4 0.9 - 1.7 ng/dL 2.5 (H) Free T3 2.3 - 4.1 pg/mL 3.1 Component Latest Ref Rng & Units 06/16/2021 TSH 0.270 - 4.200 uU/mL 2.200 Free T4 0.9 - 1.7 ng/dL 2.0 (H) Free T3 2.3 - 4.1 pg/mL 2.8 REVIEW OF SYSTEMS: GENERAL: weight flucutates Answers for HPI/ROS submitted by the patient on 10/13/2021 Fatigue: Yes Night Sweats: Yes (excessive sweats all the time, worse now) Recent Unintentional Weight Change: Yes Skin Color Changes: No Post-Nasal Drip: No Thyroid Pain (lower neck): No Trouble Swallowing: No Vision Disturbance: Yes (need new glasses) Chest Pain: Yes (pinch nerve, ER checked out that heart is good) Leg Swelling: No Blood Clots?: No Leg Pain while walking?: No Difficulty Breathing?: No Heartburn: Yes Nausea: Yes Vomiting?: No Diarrhea: Yes (daily, maybe related to stress per patient) Constipation: No Abdominal Pain: No Bone Pain?: No Muscle Aches: Yes Muscle Weakness: Yes Joint Pain or Stiffness: Yes Headaches: Yes Dizziness: Yes Numbness?: Yes (left hand) Urgency to Urinate?: Yes Increased Urination?: No Slow or Small Urine Stream?: No Have your menstrual cycles stopped?: Yes Flushing?: Yes Hot Flashes?: No Increased Thirst: Yes Change in Body Hair?: Yes Cold Intolerance: Yes Heat Intolerance?: Yes VIDEO PHYSICAL EXAMINATION: GENERAL: alert and appropriate, in no distress, well-hydrated, well nourished and happy, smiling, interactive ASSESSMENT: Canelo Pathak is a 56 year old here for evaluation of DM Type 2 complicated by None She is a known DM2 since 6 years ago. (E11.65) Type 2 diabetes mellitus with hyperglycemia, without long-term current use of insulin (HCC) Comment: not at goal due to medication compliance and not checking glucose Plan: Advise to start taking metformin twice a day again. Check glucose daily and record. (E06.3) Heraclio's disease Comment: has hyper and hypo symptoms Plan: Decrease synthroid to 200 mcg daily. [facility] today. Recheck level in 6 weeks Any part of this document that has been added/copied & pasted from other documents has been reviewed for accuracy and updated as appropriate at the time of the patient encounter I spent a total of 29 minutes on the date of the service which included preparing to see the patient, [id number] patient care, completing clinical documentation, obtaining and/or reviewing separately obtained history, performing a medically appropriate examination, counseling and educating the pat ient/family/caregiver and ordering medications, tests, or procedures. Anila Jimenez APRN.SHEEP STICKER [facility]ocrine [facility] Met[facility] [place] [facility] NoteHNO ID: [id number] Author: Leena Seymour MD Service: ? Author Type: Physician Type: Progress Notes Filed: 10/07/2021 2:42 PM Note Text: Plan: Fibromyalgia exercise discussed. Will do a sleep study at home. brief patient health questionnaire = 7 c/w mild deprssion. counseling has really helped. anxiety no ? will give prozac 10 mg daily will exercise and will do a sleep study. ? rtc in 3-4 months. ? Leena Seymour MD ? October 07, 2021 She is not doing well, she tried to exercise, after histerectomy 11 years ago, her pain increased, was on hrt, they took her off for an unknown liver issue. continued to deal with everything. past nov was more tired, was very sleepy. up to 16 hrs a day. she had a couple of uris, was given antb and pred and felt great. She wonders what else was going on. Her pcp put her on low dose , raised her blood sugars and stopped it. She is exhausted, fatigued. Gets rashes and gets creams. headaches recently was iin er for chest pain jaw pain. sees neuro. sicca oral breathing has asthma. IBS has diarrhea almost every day. lightheaded yes depresson yes, anxiety yes. exercise no No past medical history on file. No past surgical history on file. Social History Tobacco Use - Smoking status: Never Smoker - Smokeless tobacco: Never Used Substance Use Topics - Alcohol use: Not on file - Drug use: Not on file No family history on file. Current Outpatient Medications Medication Sig - metFORMIN ER (GLUCOPHAGE XR) 500 mg 24 hr tablet Take 2 tablets by mouth twice daily. - levothyroxine (SYNTHROID) 112 mcg tablet Take 2 tablets by mouth once daily. - cyclobenzaprine (FLEXERIL) 10 mg tablet - Cholecalciferol, Vitamin D3, 125 mcg (5,000 unit) cap - Vitamin D Encampment (StowThat) Take 1 capsule by mouth daily with food. - montelukast (SINGULAIR) 10 mg tablet Take 10 mg by mouth daily at bedtime. - MULTIVIT-MINERALS/FERROUS GLUC (CENTRAM-CARE ORAL) Take by mouth twice daily. - esomeprazole mag trihydrate(NEXIUM 40 MG CAP) Take one(1) capsule daily. - mometasone furoate(NASONEX 50 MCG/ACTUATION SPRAY) [employer] twice in each nostril once daily. - cetirizine hcl(ZYRTEC 10 MG TAB) Take one(1) tablet daily. - fluticasone/salmeterol(ADVAIR DISKUS 250 MCG-50 MCG/DOSE FOR INHALATION) Take one(1) inhalation twice daily; rinse and gargle mouth with water after each use. No current facility-administered medications for this visit. Answers for HPI/ROS submitted by the patient on 10/06/2021 Fever : No Recent Unintentional Weight Change: Yes Eye Pain: No Eye Redness: No Vision Disturbance: Yes Eye Dryness: No Nose Bleeds: No Sores in your Mouth: No Trouble Swallowing: No Dry Mouth: No Chest Pain: Yes Leg Swelling: Yes A Cough: Yes Blood when you Cough: No Shortness of Breath: Yes Pain with Breathing: No Heartburn: Yes Abdominal Pain: Yes Diarrhea: Yes Black Tarry Stools: No Blood in Urine: No Pain or Burning with Urination: Yes Joint Pain or Stiffness: Yes Muscle Weakness: Yes Muscle Aches: Yes Joint Swelling: Yes Morning Stiffness in Joints: Yes A Rash: Yes Do you have sun sensitive rashes?: Yes Skin Color Changes: No Hair Loss: Yes Nail Changes: Yes Headaches: Yes Numbness: Yes Memory Loss: Yes Swollen Glands: No BP 155/93 Pulse 94 Wt 125.8 kg (277 lb 6.4 oz) BMI 46.16 kg/m? GEneral plesant in nad heent negative lungs clear cvs reg abd soft extr negative normal joint exam no synovitis. Assessment and plan Fibromyalgia worse. Will refer to pool therapy, and CPRP. Anxiety, add effexor. Will check routine labs. Leena Seymour [facility]05-20-2022 History of Present illness Narrative* Leena Seymour MD - 10/07/2021 1:54 PM EDT Plan: Fibromyalgia exercise discussed. Will do a sleep study at home. brief patient health questionnaire = 7 c/w mild deprssion. counseling has really helped. anxiety no will give prozac 10 mg daily will exercise and will do a sleep study. rtc in 3-4 months. Leena Seymour MD October 07, 2021 She is not doing well, she tried to exercise, after histerectomy 11 years ago, her pain increased, was on hrt, they took her off for an unknown liver issue. continued to deal with everything. past nov was more tired, was very sleepy. up to 16 hrs a day. she had a couple of uris, was given antb and pred and felt great. She wonders what else was going on. Her pcp put her on low dose , raised her blood sugars and stopped it. She is exhausted, fatigued. Gets rashes and gets creams. headaches recently was iin er for chest pain jaw pain. sees neuro. sicca oral breathing has asthma. IBS has diarrhea almost every day. lightheaded yes depresson yes, anxiety yes. exercise no No past medical history on file. No past surgical history on file. Social History Tobacco Use Smoking status: Never Smoker Smokeless tobacco: Never Used Substance Use Topics Alcohol use: Not on file Drug use: Not on file No family history on file. Current Outpatient Medications Medication Sig metFORMIN ER (GLUCOPHAGE XR) 500 mg 24 hr tablet Take 2 tablets by mouth twice daily. levothyroxine (SYNTHROID) 112 mcg tablet Take 2 tablets by mouth once daily. cyclobenzaprine (FLEXERIL) 10 mg tablet Cholecalciferol, Vitamin D3, 125 mcg (5,000 unit) cap Vitamin D Encampment ([employer]) Take 1 capsule by mouth daily with food. montelukast (SINGULAIR) 10 mg tablet Take 10 mg by mouth daily at bedtime. MULTIVIT-MINERALS/FERROUS GLUC (CENTRAM-CARE ORAL) Take by mouth twice daily. esomeprazole mag trihydrate(NEXIUM 40 MG CAP) Take one(1) capsule daily. mometasone furoate(NASONEX 50 MCG/ACTUATION SPRAY) [employer] twice in each nostril once daily. cetirizine hcl(ZYRTEC 10 MG TAB) Take one(1) tablet daily. fluticasone/salmeterol(ADVAIR DISKUS 250 MCG-50 MCG/DOSE FOR INHALATION) Take one(1) inhalation twice daily; rinse and gargle mouth with water after each use. No current facility-administered medications for this visit. Answers for HPI/ROS submitted by the patient on 10/06/2021 Fever : No Recent Unintentional Weight Change: Yes Eye Pain: No Eye Redness: No Vision Disturbance: Yes Eye Dryness: No Nose Bleeds: No Sores in your Mouth: No Trouble Swallowing: No Dry Mouth: No Chest Pain: Yes Leg Swelling: Yes A Cough: Yes Blood when you Cough: No Shortness of Breath: Yes Pain with Breathing: No Heartburn: Yes Abdominal Pain: Yes Diarrhea: Yes Black Tarry Stools: No Blood in Urine: No Pain or Burning with Urination: Yes Joint Pain or Stiffness: Yes Muscle Weakness: Yes Muscle Aches: Yes Joint Swelling: Yes Morning Stiffness in Joints: Yes A Rash: Yes Do you have sun sensitive rashes?: Yes Skin Color Changes: No Hair Loss: Yes Nail Changes: Yes Headaches: Yes Numbness: Yes Memory Loss: Yes Swollen Glands: No BP 155/93 Pulse 94 Wt 125.8 kg (277 lb 6.4 oz) BMI 46.16 kg/m GEneral plesant in nad heent negative lungs clear cvs reg abd soft extr negative normal joint exam no synovitis. Assessment and plan Fibromyalgia worse. Will refer to pool therapy, and CPRP. Anxiety, add effexor. Will check routine labs. Leena Seymour MD documented in [facility]05-[facility]22 Miscellaneous Notes* Telephone Encounter - Renea Mcfarland Corn Cutter - 10/03/2021 3:02 PM EDT Patient called in asking for routine lab orders to be placed. Patient stated she will schedule her appointment soon. Done. Asad Ansari MD documented in this encounterFlower Hospital03-04-2022 NoteHNO ID: [id number] Author: Asad Ansari MD Service: ? Author Type: Physician Type: Progress Notes Filed: 07/22/2021 10:43 AM Note Text: VIRTUAL VISIT PROGRESS NOTE This is a virtual visit using [employer] video platform. It required patient-provider interaction for the medical decision making as documented below. Canelo Pathak is a 55 year old female seen for hypothyroidism, prediabetes and obesity. Parts of this note are copied from last visit and modified as needed. HISTORY REVIEWED (electronic chart updated): No past medical history on file. No past surgical history on file. No family history on file. Social History Tobacco Use - Smoking status: Never Smoker - Smokeless tobacco: Never Used Substance Use Topics - Alcohol use: Not on file - Drug use: Not on file Current Outpatient Medications Medication Sig - metFORMIN ER (GLUCOPHAGE XR) 500 mg 24 hr tablet Take 1 tablet by mouth twice daily. - levothyroxine 200 mcg cap Take 200 mcg by mouth daily before breakfast. - cyclobenzaprine (FLEXERIL) 10 mg tablet - Cholecalciferol, Vitamin D3, 125 mcg (5,000 unit) cap - Vitamin D Encampment ([employer]) Take 1 capsule by mouth daily with food. - montelukast (SINGULAIR) 10 mg tablet Take 10 mg by mouth daily at bedtime. - MULTIVIT-MINERALS/FERROUS GLUC (CENTRAM-CARE ORAL) Take by mouth twice daily. - esomeprazole mag trihydrate(NEXIUM 40 MG CAP) Take one(1) capsule daily. - mometasone furoate(NASONEX 50 MCG/ACTUATION SPRAY) [employer] twice in each nostril once daily. - cetirizine hcl(ZYRTEC 10 MG TAB) Take one(1) tablet daily. - fluticasone/salmeterol(ADVAIR DISKUS 250 MCG-50 MCG/DOSE FOR INHALATION) Take one(1) inhalation twice daily; rinse and gargle mouth with water after each use. No current facility-administered medications for this visit. ALLERGIES Allergen Reactions - Biaxin Xl [Clarithr* Itching nerve difficulty - Ceftin [Cefuroxime * Itching nerve difficulty - Fluconazole Itching - Levaquin [Levofloxa* Itching nerve difficulty - Lorazepam Other: See Comments - Metformin Other: See Comments - Tequin [Gatifloxaci* Itching nerve difficulty Current Immunizations: Most Recent Immunizations Administered Date(s) Administered COVID-19 vaccine, age 12+ yr ([employer] - PURPLE TOP) 09/23/2020 Labs: HbA1c. TSH. Creatinine. ALT. Albumin to creatinine ratio. Cholesterol. TSH (uU/mL) Date Value 06/16/2021 2.200 03/30/2016 1.260 09/20/2015 2.200 ALT (U/L) Date Value 06/16/2021 28 09/20/2015 25 05/16/2007 14 Potassium (mmol/L) Date Value 06/16/2021 3.9 09/20/2015 3.7 05/16/2007 4.1 Hemoglobin A1C (%) Date Value 06/16/2021 7.5 03/30/2016 6.6 09/20/2015 6.4 Creatinine (mg/dL) Date Value 06/16/2021 0.74 09/20/2015 0.71 05/16/2007 0.8 Glucose (mg/dL) Date Value 06/16/2021 106 09/20/2015 114 05/16/2007 89 Review of patient's past medical history indicates: Patient was diagnosed with prediabetes 6-7 years ago. She improved her diet and started exercising (lost about 50 lbs). No meds were used. Than she regained weight and now is loosing it again. Highest weight was 305 (now 283 lbs). She used to take metformin but it was stopped (it was immediate release). Last Hba1c was on 03/15/2022 was 7.3% (that was while she taking prednisone - was on it for months). Now of the prednisone since early April. She has hypothyroidism since 1998. Taking 200 mcg of T4 now. TSH was 5.593 on 03/15/2022 while taking 175/200 alternating. ROS: Energy is not good since March 2021. Sleeps to much. Weight is decreasing now with effort. No difficulties swallowing or breathing. No pain or tenderness from thyroid bed. Has some dizziness. No heart palpitations. No temperature intolerance. No excessive sweating No constipation or diarrhea. Has nausea. Has hysterectomy and ovariectomy at age 44. No problems with skin, hair or nails. Has achiness of the muslce and joints. No muscle weaknes. No muscle cramping. No tremors. Memory is good. No problems focusing. ? SOC HX: No smoking or drinking. . Has no children. She stays at home. ? FAM HX: Mother had hypothyroidism. ? PE: Middle aged CC female. Obese. No acute distress, alert and oriented and in appropriate mood. HEENT: Laurita, sclera anicteric, conjunctiva non inflamed, oral mucosa moist, no lesions. No lid lag. No stare. No exophtalmos. NECK: Supple. No adenopathy. No elevated JVP. No palpable lymph nodes. THYROID: Not palpable. CV: No tachycardia. EXT: No edema or deformities. SKIN: no rash or lesions. No achantosis nigricans. NEURO: No focal signs. No tremors. ? Assessment and Plan: Hypothyroidism - will increase dose to 224 mcg per day. She tolerates metformin XR OK. Will increase metformin XR dose 1000 mg in am and 500 mg in the afternoon. Will stay in touch by My-chart. Will see her in 2 months - virt (more content not included)...[facility] Evaluation note* Encounter Date Diagnosis Assessment Notes Treatment Notes Treatment Clinical Notes Jun, Lumbar pain (ICD-10 - M54.50) Jun, Leg pain (ICD-10 - M79.606) bilateral Jun, Hyperlipidemia (ICD-10 - E78.5) [employer] Other 02-02-2022 Miscellaneous Notes* Telephone Encounter - Neema Adams - 06/22/2021 9:09 AM EST Patient called in requesting the results of her labs that she had completed on 06/16/2021 Canelo can be reached at [phone] (C) or can be reached through [employer]. documented in this encounterFlower Hospital01-27-2022 NoteHNO ID: [id number] Author: Asad Ansari MD Service: ? Author Type: Physician Type: Progress Notes Filed: 06/16/2021 1:56 PM Note Text: Last Visit: This is the first visit. Ms. Pathak is here for follow up regarding her DM Type 2 and hypothyroidism. Current Immunizations: Most Recent Immunizations Administered Date(s) Administered COVID-19 vaccine, age 12+ yr ([employer] - PURPLE TOP) 09/23/2020 PHYSICAL EXAMINATION: BP 168/97 (BP Site: Right Arm, BP Position: Sitting, BP Cuff Size: Large Adult) Pulse 87 Wt 128.7 kg (283 lb 11.2 oz) BMI 47.21 kg/m? Labs: HbA1c. TSH. Creatinine. ALT. Albumin to creatinine ratio. Cholesterol. TSH (uU/mL) Date Value 03/30/2016 1.260 09/20/2015 2.200 ALT (U/L) Date Value 09/20/2015 25 05/16/2007 14 Potassium (mmol/L) Date Value 09/20/2015 3.7 05/16/2007 4.1 Hemoglobin A1C (%) Date Value 03/30/2016 6.6 09/20/2015 6.4 Creatinine (mg/dL) Date Value 09/20/2015 0.71 05/16/2007 0.8 Glucose (mg/dL) Date Value 09/20/2015 114 05/16/2007 89 Current Outpatient Medications Medication Sig - levothyroxine 200 mcg cap Take 200 mcg by mouth daily before breakfast. - Vitamin D Encampment ([employer]) Take 1 capsule by mouth daily with food. - montelukast (SINGULAIR) 10 mg tablet Take 10 mg by mouth daily at bedtime. - MULTIVIT-MINERALS/FERROUS GLUC (CENTRAM-CARE ORAL) Take by mouth twice daily. - esomeprazole mag trihydrate(NEXIUM 40 MG CAP) Take one(1) capsule daily. - mometasone furoate(NASONEX 50 MCG/ACTUATION SPRAY) [employer] twice in each nostril once daily. - cetirizine hcl(ZYRTEC 10 MG TAB) Take one(1) tablet daily. - fluticasone/salmeterol(ADVAIR DISKUS 250 MCG-50 MCG/DOSE FOR INHALATION) Take one(1) inhalation twice daily; rinse and gargle mouth with water after each use. - cyclobenzaprine (FLEXERIL) 10 mg tablet - Cholecalciferol, Vitamin D3, 125 mcg (5,000 unit) cap No current facility-administered medications for this visit. Review of patient's past medical history indicates: Patient was diagnosed with prediabetes 6-7 years ago. She improved her diet and started exercising (lost about 50 lbs). No meds were used. Than she regained weight and now is loosing it again. Highest weight was 305 (now 283 lbs). She used to take metformin but it was stopped (it was immediate release). Last Hba1c was on 03/15/2022 was 7.3% (that was while she taking prednisone - was on it for months). Now of the prednisone since early April. She has hypothyroidism since 1998. Taking 200 mcg of T4 now. TSH was 5.593 on 03/15/2022 while taking 175/200 alternating. ROS: Energy is not good since March 2021. Sleeps to much. Weight is decreasing now with effort.. No difficulties swallowing or breathing. No pain or tenderness from thyroid bed. Has some dizziness. No heart palpitations. No temperature intolerance. No excessive sweating No constipation or diarrhea. Has nausea. Has hysterectomy and ovariectomy at age 44. No problems with skin, hair or nails. Has achiness of the muslce and joints. No muscle weaknes. No muscle cramping. No tremors. Memory is good. No problems focusing. SOC HX: No smoking or drinking. . Has no children. She stays at home. FAM HX: Mother had hypothyroidism. PE: Middle aged CC female. Obese. No acute distress, alert and oriented and in appropriate mood. HEENT: Laurita, sclera anicteric, conjunctiva non inflamed, oral mucosa moist, no lesions. No lid lag. No stare. No exophtalmos. NECK: Supple. No adenopathy. No elevated JVP. No palpable lymph nodes. THYROID: Not palpable. CV: No tachycardia. EXT: No edema or deformities. SKIN: no rash or lesions. No achantosis nigricans. NEURO: No focal signs. No tremors. Assessment and Plan: Will run full TFT-s today. Will maximize T4 dose. Will consider adrenal insufficiency (due to steroid suppression) if thyroid treamtent dose not help. Will try to restart metformin XR at late date and see if she can tolerate it. Asad Ansari MD Answers for HPI/ROS submitted by the patient on 06/14/2021 Fatigue: Yes Night Sweats: Yes Recent Unintentional Weight Change: Yes Skin Color Changes: No Post-Nasal Drip: Yes Vision Disturbance: Yes Leg Swelling: Yes Heartburn: Yes Nausea: Yes Diarrhea: Yes Constipation: Yes Abdominal Pain: Yes Bone Pain?: Yes Muscle Aches: Yes Muscle Weakness: Yes Joint Pain or Stiffness: Yes Headaches: Yes Dizziness: Yes Numbness?: Yes Urgency to Urinate?: Yes Increased Urination?: No Slow or Small Urine Stream?: No Have your menstrual cycles stopped?: Yes Flushing?: Yes Hot Flashes?: Yes Increased Thirst: Yes Change in Body Hair?: Yes Cold Intolerance: Yes [facility] Encounter Date Diagnosis Assessment Notes Treatment Notes Treatment Clinical Notes Apr, Diabetes (ICD-10 - E11.9) [facility] Other 10-27-2021 Evaluation note* Encounter Date Diagnosis Assessment Notes Treatment Notes Treatment Clinical Notes Feb, Hypothyroidism, unspecified (ICD-10 - E03.9) Feb, Polyarthralgia (ICD-10 - M25.50) [facility] Other 10-26-2021 Evaluation note* Encounter Date Diagnosis Assessment Notes Treatment Notes Treatment Clinical Notes Feb, Polyarthralgia (ICD-10 - M25.50) She continues to have pain in her body. She had seen Dr. Stoddard in the past but he did not feel she had a rheumatologic condition. She was told she had Fibromyalgia but continues to have bodywide pain. She would like to be on a low dose of Prednisone, voices that she only feels good when she is on a steroid which she has been on sporadically for her foot. She knows that she needs to rid foods from her diet that cause inflammation but is not in the place in her life where she can do this. In the future we may need to discuss her doing a complete elimination diet and have her only eat hamburger and add things back slowly. We discussed that she will need to have a yearly eye exam and she is due to have an appointment so she would need to let them know she is on a steroid. Her blood sugar would need to be checked regularly. Her last A1C was done in October (2020) and was 7.4 which is higher than I would like to see. She can get her lab drawn again in two weeks and still has the order so she should have this done for a baseline reading. I did review her DEXA scan results with her today. Bone density is above the minimum desirable level at all skeletal sites tested. This patient's bone mineral density is above the minimum desirable level (T-score -1.0 or better) at all sites measured. The patient should follow a healthful lifestyle (good nutrition with adequate calcium and vitamin D, and appropriate weight-bearing exercise). Follow-Up: Consider repeating this study in 5 years or sooner if there is some new clinical indication. As long as her blood sugar does not increase significantly and she understands the risks and benefits of the medication she can start Prednisone. She voices that she is aware that this can worsen the Diabetes, can worsen her bones and lead to osteoporosis, weaken ligaments and will not start a running programs, can cause skin atrophy, worthy facies, stretch nugent and would like to start Prednisone. Side effects/risks/benef its of medication were reviewed. I would like her to have her lab drawn prior to starting the Prednisone. She is to call me by the end of the first month of Prednisone with how she is doing. Feb, Diabetes (ICD-10 - E11.9) We discussed that Prednisone can raise the blood sugar. She will repeat lab in two weeks to see where her A1C level is at. I did recommend that she cut back on her intake of carbs and sugars. She voices that she has returned to counseling to work through her stress and anxiety which helps her to avoid stress eating. We discussed referring her to Dr. Valdivia to discuss weight loss, Ozempic which would help lower her blood sugar, as she is unable to take Metformin. She is agreeable to this and a referral is provided. She was advised that this will also help her lose weight as well. Feb, Hypothyroidism, unspecified (ICD-10 - E03.9) Again, she will be able to have lab drawn in two weeks to check her thyroid levels. 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 She continues to have some pain when she sits. We discussed that if she has a connective tissue disorder it can cause pain in different areas of the body. I suspect that as she restarts the Prednisone this will improve. She is to continue to monitor. I am going to order an x-ray of her pelvis to rule out abnormalities. Feb, Other She has plantar fasciitis and was to have surgery but does not have a good feeling about the surgery so has decided not to do the surgery. She saw Dr. Herrera about a nodule on her finger of her left hand since last seen here. An x-ray was done and she was told that she could be referred to a hand surgeon but otherwise they were going to watch it, she says by 5-6 weeks it was gone. [facility] Other 10-07-2021 Evaluation note* Encounter Date Diagnosis Assessment Notes Treatment Notes Treatment Clinical Notes Feb, Bronchitis (ICD-10 - J40) [facility] 10-04-2021 Evaluation note* Encounter Date Diagnosis Assessment Notes Treatment Notes Treatment Clinical Notes Feb, Asthma (ICD-10 - J45.909) Feb, GERD (gastroesophageal reflux disease) (ICD-10 - K21.9) Feb, Seasonal allergies (ICD-10 - J30.2) [facility] Other 07-28-2012 History general Narrative - Reported* Type Description Date Medical History asthma Medical History 12/16/11 Right hand x-ray Medical History 12/16/11 Blood work Lipid, CMP, CBC, T4, TSH, HGA1C (6.3) Medical History 03/11/12-stress test at [facility] Medical History Hypothyroidism Medical History 2016 mammogram Medical History 12/21/15 EKG Medical History 12/29/15 Stress Test [facility] Surgical History tonsillectomy and adenoidectomy 1977 Surgical History cholecystectomy 08/2008 Surgical History gall bladder 08/2008 Surgical History tubes in ears Surgical History laproscopic fibroid removal Surgical History hysterectomy-total Surgical History mammogram [facility] - Dr Alvarez 07/17/17 Surgical History ERCP 09/17/17 Hospitalization History gall bladder 08/2008 Hospitalization History tonsillectomy Hospitalization History tubes in ears Hospitalization History heart(over night opserva tion) 08/2007 Hospitalization History pneumonia 1999 Hospitalization History abnormal liver function test 2017 [facility] Other 07-28-2012 History general Narrative - Reported* Type Description Date Medical History asthma Medical History 12/16/11 Right hand x-ray Medical History 03/11/12-stress test at [facility] Medical History Hypothyroidism Medical History 2015 mammogram Medical History 12/21/15 EKG Medical History 12/29/15 Stress Test [facility] Surgical History tonsillectomy and adenoidectomy 1977 Surgical History cholecystectomy 08/2008 Surgical History gall bladder 08/2008 Surgical History tubes in ears Surgical History laproscopic fibroid removal Surgical History hysterectomy-total Surgical History mammogram [facility] - Dr Alvarez 07/17/17 Surgical History ERCP 09/17/17 Hospitalization History gall bladder 08/2008 Hospitalization History tonsillectomy Hospitalization History tubes in ears Hospitalization History heart(over night opserva tion) 08/2007 Hospitalization History pneumonia 1999 Hospitalization History abnormal liver function test 2017 [facility] Other 07-28-2012 History general Narrative - Reported* Type Description Date Medical History asthma Medical History 12/16/11 Right hand x-ray Medical History 03/11/12-stress test at [facility] Medical History Hypothyroidism Medical History 2015 mammogram Medical History 12/21/15 EKG Medical History 12/29/15 Stress Test [facility] Medical History spinal stenosis Surgical History tonsillectomy and adenoidectomy 1977 Surgical History cholecystectomy 08/2008 Surgical History gall bladder 08/2008 Surgical History tubes in ears Surgical History laproscopic fibroid removal Surgical History hysterectomy-total Surgical History mammogram [facility] - Dr Alvarez 07/17/17 Surgical History ERCP 09/17/17 Hospitalization History gall bladder 08/2008 Hospitalization History tonsillectomy Hospitalization History tubes in ears Hospitalization History heart(over night opserva tion) 08/2007 Hospitalization History pneumonia 1999 Hospitalization History abnormal liver function test 2017 [facility] Other Evaluation note* Diagnosis Acquired hypothyroidism- Primary Unspecified hypothyroidism Controlled type 2 diabetes mellitus without complication, without long-term current use of insulin (HCC) [facility] [place] Diagnosis Fibromyalgia- Primary Mylagia and myositis, unspecified ALDEN (generalized anxiety disorder) Generalized anxiety disorder documented in this encounter [facility] note* Diagnosis Type 2 diabetes mellitus with hyperglycemia, without long-term current use of insulin (HCC)- Primary Heraclio's disease Chronic lymphocytic thyroiditis [facility] [place] [facility]No [facility] Other Evaluation note* Diagnosis Onset Date Resolution Status Anxiety acute Asthma acute Diabetes acute Elevated blood pressure reading acute Fatigue acute GERD (gastroesophageal reflux disease) acute Hyperlipidemia acute Hypothyroidism acute Other chronic pain acute 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 Palpitation acute Vitamin D deficiency acute [facility] Work Phone: Evaluation note* Diagnosis Onset Date Resolution Status Chronic pain acute Hip pain acute Lumbar stenosis acute Sacroiliitis acute Chronic pain acute Hip pain acute Lumbar radiculopathy acute Lumbar stenosis acute Sacroiliitis acute Chronic pain acute Lumbar radiculopathy acute Lumbosacral spondylosis acut e Sacroiliitis acute [facility] Work Phone: Evaluation note* Diagnosis Onset Date Resolution Status Chronic pain acute Hip pain acute Lumbar stenosis acute Sacroiliitis acute Chronic pain acute Hip pain acute Lumbar radiculopathy acute Lumbar stenosis acute Sacroiliitis acute Chronic pain acute Lumbar radiculopathy acute Lumbosacral spondylosis acut e Sacroiliitis acute Chronic pain acute Lumbar radiculopathy acute Lumbosacral spondylosis acut e Sacroiliitis acute [facility] Work Phone: History general Narrative - ReportedRoche[place] [facility] Other [facility] general Narrative - Reported* Type Description Date Medical History asthma Medical History Hypothyroidism Medical History spinal stenosis Medical History diabetes mallitus Medical History chronic depression Medical History anxiety Medical History hyperlipidemia Medical History obesity Medical History fibromyalgia Medical History shoulder pain Surgical History tonsillectomy and adenoidectomy 1977 Surgical History cholecystectomy 08/2008 Surgical History gall bladder 08/2008 Surgical History tubes in ears Surgical History laproscopic fibroid removal Surgical History hysterectomy-total Surgical History mammogram [facility] - Dr Alvarez 07/17/17 Surgical History ERCP 09/17/17 Hospitalization History gall bladder 08/2008 Hospitalization History tonsillectomy Hospitalization History tubes in ears Hospitalization History heart(over night opserva tion) 08/2007 Hospitalization History pneumonia 1999 Hospitalization History abnormal liver function test 2017 [facility] Other History general Narrative - Reported* Type Description Date Medical History asthma Medical History Hypothyroidism Medical History spinal stenosis Medical History diabetes mallitus Medical History chronic depression Medical History anxiety Medical History hyperlipidemia Medical History obesity Medical History fibromyalgia Medical History shoulder pain Medical History seasonal allergies Medical History Esophageal reflux Surgical History tonsillectomy and adenoidectomy 1977 Surgical History cholecystectomy 08/2008 Surgical History gall bladder 08/2008 Surgical History tubes in ears Surgical History laproscopic fibroid removal Surgical History hysterectomy-total Surgical History mammogram [facility] - Dr Alvarez 07/17/17 Surgical History ERCP 09/17/17 Hospitalization History gall bladder 08/2008 Hospitalization History tonsillectomy Hospitalization History tubes in ears Hospitalization History heart(over night opserva tion) 08/2007 Hospitalization History pneumonia 1999 Hospitalization History abnormal liver function test 2017 [facility] Other Hospital course Narrative No data available for this section [facility] No data available for this section [facility] No data available for this section [facility]Reason for visit Narrativereview labs, discuss multiple issues, see treatment plan for further informationNoRevolv [facility] Other Reason for visit NarrativereRoomish labs, discuss multiple issues, see treatment planNoRevolv IdenIve Other Summary Purpose Family History Relationship Condition Age at Onset Recorded Date/T erlin brother Hypertension Unknown father History of stroke Unknown Hypertension Unknown Heart disease Unknown Diabetes mellitus Unknown Unknown Renal failure Unknown grandparent Unknown History of stroke Unknown grandparent Hypertension Unknown Not Specified Unknown Relationship Condition Age at Onset Recorded Date/T erlin brother Hypertension Unknown father History of stroke Unknown Hypertension Unknown Heart disease Unknown Diabetes mellitus Unknown Unknown Renal failure Unknown grandparent Unknown History of stroke Unknown grandparent Hypertension Unknown Not Specified Unknown Relationship Condition Age at Onset Recorded Date/T erlin brother Hypertension Unknown father History of stroke Unknown Hypertension Unknown Heart disease Unknown Diabetes mellitus Unknown Unknown Renal failure Unknown grandparent Unknown History of stroke Unknown grandparent Hypertension Unknown mother Unknown Advance Directives Advance Directive Response Recorded Date/ Time Advance Directives No September 14, 2 018 9:20pm Reason for Referral Specialty Diagnoses / Procedures Referred By Rosa mcelroy Referred To Contact [facility] [place] Diagnoses Fibromyalgia Procedures CONSULT TO [facility]) OFFICE/OUTPATIENT [facility] 60-74 MINUTES Leena Seymour MD [address] [place] [address] Referral ID Status Reason Start Date Expiration Date Visits Requested Visits Authorized [id number] Pending Review PCP Requested Referral 10/07/2021 10/07/2022 1 1 Reason appt pt needs cons ult to discuss weight loss, diabetes Diagnosis 1 Diabetes (E11.9) Referral Organization [facility] Family Medicin e Saman Referring Provider First Name Jeff Referring Provider Last Name Dontrell Referring Provider Specialty Family Prac debbi Referred Organization [facility] Referred Provider Carl Valdivia Jr. Referred Address [address],[facility] [address],[place], [place],[address] Referred Provider Specialty Internal Med icine Referral Priority Routine General Notes Svetlana Talbert 03/15/2021 01:33:19 PM > [facility] form faxed. pt understands she will be contacted to schedule the appt Reason appt pt needs scre ening colonoscopy Diagnosis 1 Colon cancer screeni ng (Z12.11) Referral Organization [facility] Family Medicin e Saman Referring Provider First Name Jeff Referring Provider Last Name Dontrell Referring Provider Specialty Family Prac debbi Referred Organization [facility] Gastroenterolo gy Referred Provider Howard Kunz Referred Address [address] ,[place], [place],[address] Referred Provider Specialty Gastroentero logy Referral Priority Routine General Notes Svetlana Talbert 04/11/2022 01:25:30 PM > referral sent p2p. pt understands she will be contacted to schedule this appt. Reason appt pt will call to schedule this appt consult for continued ear pain despite antibiotic treatment Diagnosis 1 Right acute otitis m edia (H66.91) Referral Organization [facility] Family Ryanne Davison Referring Provider First Name Jeff Referring Provider Last Name Dontrell Referring Provider Specialty Family Prac debbi Referred Organization [facility] Referred Provider Jennie Guillermo Referred Address ,[place], [place],[address] Referred Provider Specialty Ear, Nose an d Throat Referral Priority Routine Referral Appointment Date 2022-08-14 General Notes Svetlana Talbert 08/14/2022 10:48:22 AM > referral sent p2p with TE message, UC visit note and phone visit note from 08/07. pt was provided with the phone number and will call this afternoon to schedule an appt. 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 Palpitation Vitamin D deficiency Asymmetrical sensorineural hearing loss Chronic pain Elevated blood pressure reading Tinnitus Chief Complaint review labs BP/discuss meds/ENT review thyroid labs Reason for Visit Anxiety Asthma Diabetes Elevated blood pressure reading Fatigue GERD (gastroesophageal reflux disease) Hyperlipidemia Hypothyroidism Other chronic pain 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 JEFF JON Reason for Visit Asymmetrical sensori neural hearing loss Chronic pain Elevated blood pressure reading Tinnitus Asymmetrical sensorineural hearing loss Chronic pain Elevated blood pressure reading Hypothyroidism Vomiting Chronic pain Hip pain Lumbar stenosis Sacroiliitis Chief Complaint BP/discuss meds/ENT review thyroid labs REFF BY DR. JEFF JON M48.061 M25.559 Reason for Visit Asymmetrical sensori neural hearing loss Chronic pain Elevated blood pressure reading Tinnitus Asymmetrical sensorineural hearing loss Chronic pain Elevated blood pressure reading Hypothyroidism Vomiting Chronic pain Hip pain Lumbar stenosis Sacroiliitis Chief Complaint BP/discuss meds/ENT review thyroid labs REFF BY DR. JEFF JON M48.061 M25.559 FOLLOW UP AFTER IMAGING Reason for Visit Asymmetrical sensori neural hearing loss Chronic pain Elevated blood pressure reading Tinnitus Asymmetrical sensorineural hearing loss Chronic pain Elevated blood pressure reading Hypothyroidism Vomiting Chronic pain Hip pain Lumbar stenosis Sacroiliitis Chronic pain Hip pain Lumbar radiculopathy Lumbar stenosis Sacroiliitis Chief Complaint review thyroid labs REFF BY DR. JEFF JON M48.061 M25.559 FOLLOW UP AFTER IMAGING right L3,4 transforaminal epidural inj Reason for Visit Asymmetrical sensori neural hearing loss Chronic pain Elevated blood pressure reading Hypothyroidism Vomiting Chronic pain Hip pain Lumbar stenosis Sacroiliitis Chronic pain Hip pain Lumbar radiculopathy Lumbar stenosis Sacroiliitis Chief Complaint review thyroid labs REFF BY DR. JEFF JON M48.061 M25.559 FOLLOW UP AFTER IMAGING right L3,4 transforaminal epidural inj f/u after L3,4 LTR on right Reason for Visit Asymmetrical sensori neural hearing loss Chronic pain Elevated blood pressure reading Hypothyroidism Vomiting Chronic pain Hip pain Lumbar stenosis Sacroiliitis Chronic pain Hip pain Lumbar radiculopathy Lumbar stenosis Sacroiliitis Chronic pain Lumbar radiculopathy Lumbosacral spondylosis Sacroiliitis Chief Complaint REFF BY DR. JEFF WHITFIELD RVIN M48.061 M25.559 FOLLOW UP AFTER IMAGING right L3,4 transforaminal epidural inj f/u after L3,4 LTR on right BILATERAL SACROILIAC JOINT INJ Reason for Visit Chronic pain Hip pain Lumbar stenosis Sacroiliitis Chronic pain Hip pain Lumbar radiculopathy Lumbar stenosis Sacroiliitis Chronic pain Lumbar radiculopathy Lumbosacral spondylosis Sacroiliitis Chief Complaint REFF BY DR. JEFF GALVEZ M48.061 M25.559 FOLLOW UP AFTER IMAGING right L3,4 transforaminal epidural inj f/u after L3,4 LTR on right BILATERAL SACROILIAC JOINT INJ FOLLOW UP AFTER ASHLEY SI Reason for Visit Chronic pain Hip pain Lumbar stenosis Sacroiliitis Chronic pain Hip pain Lumbar radiculopathy Lumbar stenosis Sacroiliitis Chronic pain Lumbar radiculopathy Lumbosacral spondylosis Sacroiliitis Chronic pain Lumbar radiculopathy Lumbosacral spondylosis Sacroiliitis Additional Source Comments INFORMATION SOURCE (unrecogn ized section and content) DATE CREATED AUTHOR 10/10/2018 [facility] DATE CREATED AUTHOR AUTHOR'S ORGANIZ ATION 05/13/2022 [facility] DATE CREATED AUTHOR AUTHOR'S ORGANIZ ATION 09/15/2022 [facility] DATE CREATED AUTHOR AUTHOR'S ORGANIZ ATION 12/19/2022 [facility] DATE CREATED AUTHOR AUTHOR'S ORGANIZ ATION 10/14/2023 Endy Devan [facility] DATE CREATED AUTHOR AUTHOR'S ORGANIZ ATION 10/24/[address] [facility] DATE CREATED AUTHOR AUTHOR'S ORGANIZ ATION 12/09/2023 [facility] DATE CREATED AUTHOR AUTHOR'S ORGANIZ ATION 01/31/2024 [facility] Source Comments (unrecognize d section and content) In the event this informatio n is protected by the Federal Confidentiality of Alcohol and Drug Abuse Patient Records regulations: The Federal rules restrict any use of the information to criminally investigate or prosecute any alcohol or drug abuse patient.[facility] the event this information is protected by the Federal Confidentiality of Alcohol and Drug Abuse Patient Records regulations: The Federal rules restrict any use of the information to criminally investigate or prosecute any alcohol or drug abuse patient.[facility] the event this information is protected by the Federal Confidentiality of Alcohol and Drug Abuse Patient Records regulations: The Federal rules restrict any use of the information to criminally investigate or prosecute any alcohol or drug abuse patient.[facility] the event this information is protected by the Federal Confidentiality of Alcohol and Drug Abuse Patient Records regulations: The Federal rules restrict any use of the information to criminally investigate or prosecute any alcohol or drug abuse patient.[facility] the event this information is protected by the Federal Confidentiality of Alcohol and Drug Abuse Patient Records regulations: The Federal rules restrict any use of the information to criminally investigate or prosecute any alcohol or drug abuse patient.[facility] Reason for Visit (unrecogniz ed section and content) Reason Comments Lab Orders Reason Comments Thyroid Problem Diabetes Reason Comments Appointment Reason Comments Patient Question Care Teams (unrecognized sec tion and content) Team Status: Active Member Role Status Dates Jeff Jon DO Primary Care Provider Active Team Status: Inactive Member Role Status Dates Jeff Jon DO Primary Care Provide r, Referring Provider Active Start: December 05, 2023 End: December 05, 2023 Logan Brown MD Attending Provider Active Sta rt: December 05, 2023 End: December 05, 2023 Team Status: Inactive Member Role Status Dates Jeff Jon DO Primary Care Provider Active S tart: December 05, 2023 End: December 05, 2023 Logan Brown MD Attending Provider Active Sta rt: December 05, 2023 End: December 05, 2023 Team Status: Inactive Member Role Status Zach Jon DO Primary Care Provider Active S tart: December 19, 2023 End: December 19, 2023 Logan Brown MD Attending Provider Active Sta rt: December 19, 2023 End: December 19, 2023 Team Status: Inactive Member Role Status Zach Jon DO Primary Care Provider Active S tart: December 27, 2023 End: December 27, 2023 Logan Brown MD Attending Provider Active Sta rt: December 27, 2023 End: December 27, 2023 Team Status: Active Member Role Status Zach Jon DO Primary Care Provider Active S tart: December 27, 2023 Logan Brown MD Attending Provider Active Sta rt: December 27, 2023 Team Status: Inactive Member Role Status Zach Jon DO Primary Care Provider Active S tart: January 14, 2024 End: January 14, 2024 Logan Brown MD Attending Provider Active Sta rt: January 14, 2024 End: January 14, 2024 Team Status: Inactive Member Role Status Zach Jon DO Primary Care Provider Active S tart: February 05, 2024 End: February 05, 2024 Logan Brown MD Attending Provider Active Sta rt: February 05, 2024 End: February 05, 2024 Team Status: Active Member Role Status Zach Jon DO Primary Care Provide r, Attending Provider Active Start: October 25, 2023 Team Status: Inactive Member Role Status Zach Jon DO Primary Care Provide r, Attending Provider Active Start: October 29, 2023 End: October 29, 2023 Team Status: Inactive Member Role Status Zach Jon DO Primary Care Provide r, Attending Provider Active Start: September 26, 2023 End: September 26, 2023 Chemistry Account Manager Relationship Specialty Start Date End Date Jeff Jon, DO [address] [place] [address] PCP - General Family Practice 08/01/18 Chemistry Account Manager Relationship Specialty Start Date End Date Jeff Jon DO [address] [place] [address] PCP - General Family Practice 08/01/18 Chemistry Account Manager Relationship Specialty Start Date End Date Jeff Jon, DO [address] [place] [address] PCP - [facility] Practice 08/01/18 Chemistry Account Manager Relationship Specialty Start Date End Date Jeff Jon, DO [address] [place] [address] PCP - [facility] Practice 08/01/18 Chemistry Account Manager Relationship Specialty Start Date End Date Jeff Jon, DO [address] [place] [address] PCP - [facility] Medicine 08/01/18 Team Status: Active Member Role Status Zach Jon DO Primary Care Provide r, Attending Provider Active Start: August 23, 2023 Team Status: Inactive Member Role Status Zach Jon DO Primary Care Provide r, Attending Provider Active Start: August 28, 2023 End: August 28, 2023 Team Status: Active Member Role Status Zach Jon DO Primary Care Provider Active S tart: February 05, 2024 Logan Brown MD Attending Provider Active Sta rt: February 05, 2024 Team Status: Inactive Member Role Status Zach Jon DO Primary Care Provider Active S tart: February 12, 2024 End: February 12, 2024 Logan Brown MD Attending Provider Active Sta rt: February 12, 2024 End: February 12, 2024 Goals (unrecognized section and content) Goals may be documented in a n alternate section FOR RECORDS PERTAINING TO PATIENTS WHO ARE OR HAVE BEEN ENROLLED IN A CHEMICAL DEPENDENCY/SUBSTANCEABUSE PROGRAM, SOME INFORMATION MAY BE OMITTED. This clinical summary was aggregated from multiple sources. Caution should be exercised in using it in the provision of clinical care. This summary normalizes information from multiple sources, and as a consequence, information in this document may materially change the coding, format and clinical context of patient data. In addition, data may be omitted in some cases. CLINICAL DECISIONS SHOULD BE BASED ON THE PRIMARY CLINICAL RECORDS. [facility] [employer] [facility]. provides no warranty or guarantee of the accuracy or completeness of information in this document.
[2024-03-20 10:14] LABS: Basophils Absolute Auto 0.1 10^3/uL (0.0-0.1); Basophils Percent Auto 0.9 % (0.2-2.0); Eosinophils Absolute Auto 0.3 10^3/uL (0.0-0.7); Eosinophils Percent Auto 3.3 % (0.9-7.0); Hematocrit 39.9 % (36.0-48.0); Hemoglobin 13.2 g/dL (12.0-16.0); Immature Granulocytes Abs Auto 0.02 10^3/uL (0.00-0.03); Immature Granulocytes Pct Auto 0.2 % (0.0-0.5); Lymphocytes Absolute Auto 2.3 10^3/uL (1.2-3.8); Lymphocytes Percent Auto 26.5 % (20.5-60.0); Mean Corpuscular HGB Conc 33.1 g/dL (29.9-35.2); Mean Corpuscular Volume 93.7 fL (81.0-99.0); Mean Platelet Volume 9.5 fL (9.5-13.5); Monocytes Absolute Auto 0.6 10^3/uL (0.3-0.8); Monocytes Percent Auto 6.4 % (1.7-12.0); Neutrophils Absolute Auto 5.4 10^3/uL (1.4-6.5); Neutrophils Percent Auto 62.7 % (43.0-75.0); Platelet Count 364 10^3/uL (150-450); Red Blood Count 4.26 10^6/uL (4.20-5.40); Red Cell Distribution Width 12.4 % (11.0-15.0); White Blood Count 8.5 10^3/uL (4.0-11.0)
[2024-03-20 11:07] LABS: Alanine Aminotransferase 22 U/L (14-59); Albumin Level 3.3 g/dL (3.4-5.0); Alkaline Phosphatase 72 U/L (46-116); Anion Gap 13.5; Aspartate Amino Transferase 11 U/L (15-37); BUN Creatinine Ratio 20.2; Bilirubin Total 0.4 mg/dL (0.2-1.0); Carbon Dioxide 28.6 mmol/L (21.0-32.0); Chloride 105 mmol/L (98-107); Chol HDL Ratio 2.4; Cholesterol 174 mg/dL (<=200); Estimated GFR (African America >60 (>=60 mL/min/1.73m^2); Estimated GFR (Non-African Ame >60 (>=60 mL/min/1.73m^2); Globulin 3.3 g/dL; Glucose 119 mg/dL (74-106); HDL Cholesterol 72 mg/dL (40-60); Potassium 4.1 mmol/L (3.5-5.1); Sodium 143 mmol/L (136-145); Total Protein 6.6 g/dL (6.4-8.2); Triglycerides 75 mg/dL (<=150)
[2024-03-20 11:15] LABS: Free T4 1.53 ng/dL (0.76-1.46)
[2024-03-20 11:42] LABS: Estimated Average Glucose 140 mg/dL; Glycohemoglobin A1C 6.5 % (4.5-6.2)
[2024-03-21 10:10] LABS: Triiodothyronine (T3) 99 ng/dL (71-180)
== END 2024-03-20 09:50 | disposition home or self-care (01) ==
LOC: LAB 09:51
PROVIDERS: PCP Family Medicine; Visit Provider Family Medicine
DX: E03.9 Hypothyroidism, unspecified (principal); E11.9 Type 2 diabetes mellitus without complications; Z79.899 Other long term (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; E78.5 Hyperlipidemia, unspecified; E55.9 Vitamin D deficiency, unspecified
CPT/HCPCS: 36415; 80053; 80061; 82306; 83036; 84439; 84443; 84480; 85025

== ENCOUNTER 2024-06-17 13:19 | Outpatient (OUT) | payer OTHER, SELFPAY ==
--- OUTSIDE RECORDS SUMMARY | 2024-06-17 13:32 | XMS_ITS | CCD ---
Author Organization [facility] CliniSymd Care Team Providers Care Component Assembler Supervisor Name Role Phone JEFF JON Primary Care Unavailable ELLE DODD Referring Unavailable Jeff Jon DO Primary Care Provider [phone] Carlos Terrazas Unavailable Jeff Jon Unavailable Vandana [...] Attending Unavailable DONTRELL, DR AGUILAR Admitting Unavailable FRANCISCO, DR JEFF Colvin Consulting Unavailable DONTRELL, DR [...] Attending Unavailable SVETLANA SINGH Attending Unavailable TIMMIS, JENNIE H Attending Unavailable HILLS, SHARON D Referring Unavailable HILLS, SHARON D Attending Unavailable TIMMIS, JENNIE H Attending Unavailable DO Jeff Jon Primary Care Provider MD Logan Brown Attending Provider Logan Brown Admitting Unavailable Logan Brown Attending Unavailable Jeff Jon Primary Care Unavailable Jeff Jon DO Primary Care Unavailab le DeVaul DIRECTOR OF STRATEGIC SALES-HAIR SALON MANAGER, Cass Zavaleta Attending Unav ailable Jeff Jon DO Primary Care Unavailab le DeVaul DIRECTOR OF STRATEGIC SALES-HAIR SALON MANAGER, Cass Zavaleta Attending Jeff Reyes DO Primary Care Onelia Alanis, Cass Zavaleta Attending Jeff Reyes DO Primary Care Unavailab Brittney YA, Librado Kumar Attending [facility] ble Allergies Allergy Classification Reported Allergen(s) Allergy Type Date of Onset Reaction(s) Facility Macrolides (antibiotic) (1 source) Clarithromycin Drug Allergy 12-19-19 diarrhea [facility] Quinolones (antibiotic) (2 sources) levoFLOXacin Drug Allergy 12-19-19 Abdominal Pain, itches/pain, Abdominal Pain [facility] (6 sources) Cefuroxime; Translations: [CEFUROXIME AXETIL] Drug Allergy 05-16-20 07 Itching [facility] (20 sources) Clarithromycin; Translations: [CLARITHROMYCIN] Drug Allergy 05-16-20 07 Itching [facility] (14 sources) Fluconazole; Translations: [FLUCONAZOLE] Drug Allergy 06-16-19 Itching [facility] (19 sources) gatifloxacin; Translations: [GATIFLOXACIN] Drug Allergy 05-16-20 07 Itching [facility] (20 sources) levoFLOXacin; Translations: [LEVOFLOXACIN] Drug Allergy 05-16-20 07 Itching [facility] (16 sources) LORazepam; Translations: [LORAZEPAM] Drug Allergy 06-16-19 Other: See Comments [facility] (20 sources) metFORMIN; Translations: [METFORMIN] Drug Allergy 06-16-19 Other: See Comments [facility] (20 sources) Fluconazole Drug Allergy [facility]ching [facility] Other (20 sources) gatifloxacin; Translations: [Tequin] Drug Allergy 05-17-20 13 Unknown [facility] (20 sources) levoFLOXacin; Translations: [Levaquin] Drug Allergy 05-17-20 13 itches/pain [facility] (20 sources) LORazepam Drug Allergy made wired /unable to sleep [facility] Other (3 sources) metFORMIN Drug Allergy headaches [facility] Other (2 sources) Clarithromycin; Translations: [Biaxin] Drug Allergy 09-05-19 16 [facility] (1 source) Pentamidine Drug Allergy [facility] (2 sources) Percocet Tablets; Translations: [Percocet Tablets] Propensity to adverse reactions to drug nausea and vomiting [facility] (2 sources) Vicodin Tablets; Translations: [Vicodin Tablets] Propensity to adverse reactions to drug nausea and vomiting [facility] (1 source) Clarithromycin Drug Allergy 10-29-19 [facility] (1 source) gatifloxacin Drug Allergy 10-29-19 [facility] (1 source) levoFLOXacin Drug Allergy 10-29-19 [facility] Rep[facility] Medications Current Medications Medication Drug Class(es) [...] every 12 hrs for 90 days Active [id number] 200 actuat albuterol 0.09 mg/actuat metered dose inhaler (20 sources) beta2-Adrenergic Agonist Start: 03-26-2024 End: 03-26-2024 Albuterol Sulfate 90 mcg/actuation HFA aerosol inhaler Active 2 INH INHALATION Every 6 hours as needed for shortness of breath or wheezing 8.5 March 26, 2024 12:03pm Start: 08-28-2023 take 3 mL by inhalat ion every six hours as needed Albuterol Sulfate 2.5 mg /3 mL (0.083 %) solution for nebulization Active 2.5 MG INHALATION Every 6 hours August 27, 2023 11:00pm 3 ml as needed Inhalation every 6 hrs; Note: Source Status: Continueprn; Provider: Jacky Carrillo Start: 08-28-2023 End: 03-26-2024 Albuterol Sulfate (Proair Hf a) 90 mcg/actuation HFA aerosol inhaler Discontinued INHALATION August 27, 2023 11:00pm March 26, 2024 12:03pm [employer] inhalations Inhalation q4 hrs prn; Note: Source Status: Continueprn; Provider: Dontrell Reeder Start: 08-28-2023 Albuterol Sulf ate (Proair Hfa) [...] day(s), # 30 tab(s), Refills(s) 2, Pharmacy: [facility]/pharmacy #[id number], 166, cm, 05/10/23 14:36:00 EST, Height/Length Dosing, 123.7, kg, 05/10/23 14:36:00 EST, Weight Dosing Start Date: 05/10/23 Stop Date: 08/08/23 Status: Ordered amLODIPine 5 mg oral tablet (1 source) Dihydropyridine Calcium Channel Vicenta Start: 06-29-2023 take 1 tablet by mouth every twenty-four hours amLODIPine Besylate 5 MG 1 tablet Orally Once a day for 30 days Jun, Active betamethasone 0.5 mg/ml / clotrimazole 10 mg/ml topical cream (20 sources) Azole Antifungal, Corticosteroid Start: 08-28-2023 Clotrimazole-Betam ethasone 1-0.05 % cream Active 1 APPLIC TOPICAL Twice daily August 27, 2023 11:00pm [employer] application Externally Twice a day; Note: [...] Tablet Active 10 MG PO Daily September 13, 2017 11:00pm Cetirizine HCl 1 0 mg TAKE 1 TABLET DAILY for 90 days Active take 1 tablet by barbara th every twelve hours Cetirizine HCl 10 MG 1 tablet Orally Twi ce a day Active Comment on above: Take one(1) tablet d aily. cholecalciferol 0.05 mg oral tablet (20 sources) Vitamin D Start: 08-28-19 End: 08-28-19 take 1 tablet by mouth once daily Cholecalciferol (Vitamin D3) 50 mcg (2,000 unit) tablet Active 2000 UNIT PO Daily August 28, 2023 9:48am [employer] tablet Orally Once a day; Note: [...] every 12 hrs for 10 day(s) Active estrogens, conjugated (intermediate) 0.45 mg oral tablet (1 source) Estrogen Start: 02-23-20 11 take 1 tablet by mouth once daily Premarin 0.45 mg Tab 0.45 mg = 1 tab(s), Oral, Daily, tab(s), Refills(s) 0 Start Date: 02/22/11 Status: Ordered fluticasone propionate 0.05 mg/actuat metered dose nasal spray (20 sources) Corticosteroid Start: 05-12-20 take 1 spray(s) nasal route once daily [...] INH INHALATION Q12H 3 October 29, 2023 12:18pm Start: 10-29-2023 Fluticasone Pr opion-Salmeterol (Advair Diskus) 250-50 mcg/dose blister with device Active 1 INH INHALATION Q12H 3 October 29, 2023 1:18pm Start: 09-14-2017 End: 10-29-2023 Fluticasone Propion-Salmeter ol (Advair Diskus) 250-50 mcg/dose Blister With Device Discontinued 1 INH INHALATION Q12H September 13, 2017 11:00pm October 29, 2023 12:20pm Start: 09-14-2017 End: 10-29-2023 Fluticasone Propion-Salmeter ol [...] gargle mouth with water after each use. losartan potassium 50 mg oral tablet (20 sources) Angiotensin 2 Receptor Vcienta Start: 12-05-2023 End: 04-22-2024 take 1 tablet by mouth once daily Losartan 50 mg tablet Active 50 MG PO Daily April 22, 2024 8:14am Start: 08-28-2023 End: 09-26-2023 take 1 tablet by mouth once daily Losartan 50 mg tablet Discontinued 50 MG PO Daily August 27, 2023 11:00pm August 28, 2023 10:13am [employer] tablet Orally Once a day; Note: [...] a day for 90 days Active meloxicam 15 mg oral tablet (20 sources) Nonsteroidal Anti-inflammatory Drug Start: 06-13-2024 take 1 tablet by mouth once daily Meloxicam 15 mg tablet Active 15 MG PO Daily June 13, 2024 12:22pm Start: 01-14-2024 End: 06-13-2024 Meloxicam 15 mg tablet Disco ntinued [address] [id number] January 14, 2024 9:16am June 13, 2024 12:23pm TAKE 1 TABLET DAILY Start: 01-14-2024 Meloxicam 15 m g tablet Active 0 .ROUTE [place] January 14, 2024 9:16am TAKE 1 TABLET DAILY Start: 01-14-2024 Meloxicam Acti ve 0 .ROUTE .COMPLEX January 14, 2024 9:16am TAKE 1 TABLET DAILY Start: 01-14-2024 Meloxicam Acti ve [address] [id number] January 14, 2024 10:16am TAKE 1 TABLET DAILY Start: 08-28-2023 End: 01-14-2024 take 1 tablet by mouth once daily Meloxicam 15 mg tablet Discontinued 15 MG PO Daily August 27, 2023 11:00pm January 14, 2024 9:17am TAKE 1 TABLET DAILY; Refills: 0; Provider: Dontrell Reeder Meloxicam 15 mg TAKE 1 TABLET DAILY for 90 days Active 24 hr metFORMIN hydrochlorid e 500 mg extended release oral tablet (20 sources) Biguanide Start: 06-13-2024 Metformin 500 mg tablet extended release 24 hr Active [address] June 13, 2024 12:22pm 1,000 mg orally BID as normal; Start: 04-22-2024 End: 06-13-2024 Metformin 500 mg tablet exte nded release 24 hr Discontinued 0 .ROUTE [place]COMPLEX [facility] April 22, 2024 8:13am June 13, 2024 12:23pm TAKE 2 TABLETS TWICE A DAY WITH MEALS Start: 01-14-2024 End: 04-22-2024 Metformin 500 mg tablet exte nded release 24 hr Discontinued 0 .ROUTE .COMPLEX [facility] January 14, 2024 9:41am April 22, 2024 8:14am TAKE 2 TABLETS TWICE A DAY WITH MEALS Start: 01-14-2024 Metformin Acti ve 0 .ROUTE .COMPLEX [facility] January 14, 2024 9:41am TAKE 2 TABLETS TWICE A DAY WITH MEALS Start: 01-14-2024 Metformin Acti ve 0 .ROUTE .COMPLEX [facility] January 14, 2024 10:41am TAKE 2 TABLETS TWICE A DAY WITH MEALS Start: 01-14-2024 End: 01-14-2024 take 2 tablets by mouth twice daily at mealtime Metformin 500 mg tablet extended release 24 hr Discontinued 500 MG PO .COMPLEX January 14, 2024 9:36am January 14, 2024 9:42am 500 mg orally take 2 (500 mg) tabs twice a day with meals; Start: 10-29-2023 End: 01-14-2024 take 1 tablet by mouth once daily Metformin 500 mg tablet extended release 24 hr Discontinued 500 MG PO Daily October 29, 2023 1:48pm January 14, 2024 9:37am Start: 05-10-2023 metformin Refi lls(s) 0 Start Date: 05/10/23 Status: Ordered Start: 10-20-2021 take 2 tablets by mo uth twice daily at mealtime metFORMIN HCl ER 500 MG 2 tablets Orally bid with meals for 90 days Oct, Active Start: 07-22-2021 take 2 tablets by mo uth twice daily metFORMIN ER (GLUCOPHAGE XR) 500 mg 24 hr tablet Take 2 tablets by mouth twice daily. 360 tablet 3 07/22/2021 Active Start: 10-29-2019 metFORMIN HCl 500 MG 1 tablet with largest meal of the day Orally Once a day Oct, Active Start: 09-14-2017 End: 10-29-2023 Metformin 500 mg Tablet Exte nded Release 24 Hr Discontinued 500 MG PO Every 48 hours September 13, 2017 11:00pm October 29, 2023 1:48pm Comment on above: Take 2 tablets by mo uth twice daily. Mometasone (20 sources) Corticosteroid Start: 04-10-2019 Start: 04-10-2019 Elocon 0.1 % 1 application Externally Once a day for 90 days prn Mar, Active Start: 09-14-2017 Mometasone (El ida) 0.1 % Cream Active 1 APPLIC TOPICAL Daily as needed for Rash September 13, 2017 11:00pm Start: 09-14-2017 Mometasone (Na sonex) 50 mcg/actuation [place],Non-Aerosol Active 2 SPRAY INTRANASAL Daily September 13, 2017 11:00pm Start: 02-22-2011 Nasonex Nasal, Daily, Refill(s) 0 Start Date: 02/22/11 Status: Ordered Start: 06-26-2008 mometasone fur oate(NASONEX 50 MCG/ACTUATION SPRAY) [place] twice in each nostril once daily. 0 06/26/2008 Active Comment on above: [place] twice in each nostril once daily. predniSONE 20 mg oral tablet (20 sources) Start: 05-16-2024 End: 06-13-2024 take 3 tablets by mouth once daily at mealtime, then take 2 tablets by mouth once daily, then take 1 tablet by mouth once daily at mealtime Prednisone 20 mg tablet Active 0 PO .with food or milk 05 02June 13, 2024 12:00am take 3 tablets a day x3 days, 2 tabs a day x3 days and then 1 tab a day x3 days orally WITH FOOD OR MILK; Start: 09-13-2022 predniSONE 10 MG 4 tablets daily x [...] Drug Class(es) Dates Sig (Normalized) Sig (Original) amoxicillin 875 mg / clavulanate 125 mg oral tablet (13 sources) Penicillin-class Antibacterial Start: 01-08-2024 End: 03-26-2024 take 1 tablet by mouth twice daily at mealtime Amoxicillin-Pot Clavulanate 875-125 mg tablet Discontinued 1 TAB PO Twice daily 09 03January 07, 2024 11:00pm March 26, 2024 11:37am with food Start: 10-24-2022 take 1 tablet [...] with food for 10 day(s) Jul, Active cefTRIAXone (20 sources) Cephalosporin Antibacterial Start: 09-09-2018 Rocephin 500 mg Aug, 1 g cyclobenzaprine hydrochloride 10 mg oral tablet (20 sources) Muscle Relaxant Start: 08-28-2023 End: 04-22-2024 take 1 tablet by mouth once daily at bedtime Cyclobenzaprine 10 mg tablet Discontinued 10 MG PO Daily at bedtime 90 January 08, 2024 10:29am April 22, 2024 8:14am TAKE 1 TABLET AT BEDTIME Start: 01-30-2018 take 1 tablet by barbara th once daily at bedtime Flexeril 10mg 1 tablet Orally QHS for 90 days Jan, Active Start: 01-30-2018 Start: 09-14-2017 End: 09-16-2017 take 1 tablet by mouth three times daily as needed for muscle spasms Cyclobenzaprine 10 mg Tablet Discontinued 10 MG PO Three times daily as needed for Muscle Spasm September 13, 2017 11:00pm September 16, 2017 12:16pm esomeprazole 40 mg delayed release oral capsule (20 sources) Proton Pump Inhibitor Start: 06-26-2008 End: 04-22-2024 take 1 capsule by mouth once daily Esomeprazole Magnesium (Nexium) 40 mg Capsule,Delayed Release(Dr/Ec) Discontinued 40 MG PO Daily September 13, 2017 11:00pm April 22, 2024 8:16am Comment on above: Take one(1) capsule daily. 84 hr estradiol 0.87755 mg/hr transdermal system (13 sources) Estrogen Start: 09-14-2017 End: 08-28-2023 Estradiol (Vivelle-Dot) 0.0375 mg/24 hr Patch Semiweekly Discontinued 1 PATCH TRANSDERML Once September 13, 2017 11:00pm August 28, 2023 10:12am glimepiride 1 mg oral tablet (20 sources) Sulfonylurea Start: 08-28-2023 End: 08-28-2023 Glimepiride 1 mg tablet Discontinued 1 MG PO Daily August 28, 2023 9:09am August 28, 2023 10:12am 1 tablet with breakfast or the first [...] a day for 30 days Feb, Active hydroCHLOROthiazide 25 mg / triamterene 37.5 mg oral capsule (12 sources) Potassium-sparing Diuretic, Thiazide Diuretic Start: 09-26-2023 End: 04-11-2024 take 1 capsule by mouth once daily in the morning Triamterene-Hydrochlorothiazid 37.5-25 mg capsule Discontinued 1 CAP PO Every morning September 25, 2023 11:00pm April 11, 2024 12:05pm hydrocortisone 10 mg/ml / neomycin 3.5 mg/ml / polymyxin b [id number] unt/ml otic solution (12 sources) Aminoglycoside Antibacterial, Polymyxin-class Antibacterial, Corticosteroid Start: 08-11-2022 [id number] 4 drops into affected ear Otic Three times a day for 7 days Jul, Not-Taking Ketorolac (20 sources) Nonsteroidal Anti-inflammatory Drug, Cyclooxygenase Inhibitor Start: 08-11-2016 Toradol per 15 mg Jul, 2 cc levothyroxine sodium 0.2 mg oral tablet (20 sources) l-Thyroxine Start: 08-28-2023 End: 04-22-2024 take 1 tablet by mouth once daily in the morning Levothyroxine (Synthroid) 200 mcg tablet Discontinued 200 MCG PO Daily August 28, 2023 10:47am September 03, 2023 11:49am take on an empty stomach first thing [...] Tablet Discontinued 175 MCG PO Daily September 13, 2017 11:00pm August 28, 2023 10:40am take 1 tablet by barbara th in the morning Levothyroxine Sodium 200 MCG 1 tablet on an empty stomach in the morning Orally PT REQUESTING [employer]LAN [employer]AND Active Comment on above: Take 2 tablets by mo uth once daily. Take one tablet yasmine y. lisinopril 10 mg oral tablet (13 sources) Angiotensin Converting Enzyme Inhibitor Start: 8 End: 4 take 1 tablet by mouth once daily Lisinopril 10 mg tablet Discontinued 10 MG PO Daily September 15, 2017 11:00pm August 28, 2023 10:13am montelukast 10 mg oral tablet (20 sources) Leukotriene Receptor Antagonist Start: 1 End: 4 take 1 tablet by mouth once daily at bedtime Montelukast (Singulair) 10 mg Tablet Discontinued 10 MG PO Daily at bedtime September 13, 2017 11:00pm April 22, 2024 8:15am Comment on above: Take 10 mg by mouth daily at bedtime. Stisfqdm-Gdi-Zeginnv Gluconate (Centrum) 9 mg iron/15 mL Liquid (13 sources) Start: 8 End: 4 take 2 tablets by mouth once daily Pttirsom-Xkf-Mrhbocg Gluconate (Centrum) 9 mg iron/15 mL Liquid Discontinued 2 TAB PO Daily September 13, 2017 11:00pm August 28, 2023 10:13am Start: 09-14-2017 End: 08-28-2023 take 2 tablets by mouth once daily Elebiyrx-Osq-Xxzizin Gluconate (Centrum) 9 mg iron/15 mL Liquid Discontinued 2 TAB PO Daily September 14, 2017 12:00am August 28, 2023 11:13am MULTIVIT-MINERALS/FERROUS GLUC (CENTRAM-CARE ORAL) (5 sources) MULTIVIT-MINERAL S/FERROUS GLUC (CENTRAM-CARE ORAL) Take by mouth twice daily. 0 Active Comment on above: Take by mouth twice daily. 72 hr scopolamine 0.0139 mg/hr transdermal system (14 sources) Anticholinergic St ar t: 23 Scopolamine 1 MG/3DAYS 1 patch to skin behind the ear Transdermal change q72 hours Jun, Not-Taking TB Test (20 sources) St ar t: 15 TB Test Jan, 0.1 mL 24 hr venlafaxine 37.5 mg extended release oral capsule (3 sources) Serotonin and Norepinephrine Reuptake Inhibitor St ar t: 0 22 venlafaxine ER (EFFEXOR XR) 37.5 mg 24 hr capsule take one a day, if tolerated after two weeks increase to two 60 capsule 3 10/07/2021 Active Comment on above: take one a day, if t olerated after two weeks increase to two Vitamin D [place] ([employer]) (3 sources) St ar t: 16 En d: 22 take 1 capsule by mouth once daily at mealtime Vitamin D [place] ([employer]) Take 1 capsule by mouth daily with food. 0 03/30/2016 10/13/2021 Discontinued (Course of therapy completed) Start: 03-30-2016 take 1 capsule by mo uth once daily at mealtime Vitamin D [place] ([employer]) Take 1 capsule by mouth daily with food. 0 03/30/2016 Active Comment on above: Take 1 capsule by mo uth daily with food. Problems Active Problems Problem Classification Problem Date Documented Da te Episodic/Chronic Anxiety disorders (20 sources) Generalized anxiety disorder; Translations: [Generalized anxiety disorder] Chronic Asthma (20 sources) Asthma; Translations: [Unspecified asthma, uncomplicated] Onset: 1 Resolved: 2 Chronic Cardiac dysrhythmias (17 sources) Palpitations; Translations: [Palpitations] Episodic Diabetes mellitus [...] Onset: 6 09-20-2015 Chronic Malaise and fatigue (17 sources) Other fatigue; Translations: [Fatigue] Episodic Miscellaneous [...] Long-term current use of systemic steroid; Translations: [senior living (current) use of systemic steroids] Episodic Other aftercare (9 sources) Other long winder tender (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; Translations: [Long-term (current) use of other medications] Onset: 1 Resolved: 2 Episodic Other aftercare (1 source) senior living (current) use of oral hypoglycemic drugs; Translations: [WAVE GUIDE ASSEMBLER USE ORAL HYPOGLYCEMIC DX] Onset: 3 Episodic Other aftercare (13 sources) Long-term current use of drug therapy; Translations: [Other long winder tender (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] 08-28-2023 Episodic Other circulatory disease (20 sources) Elevated blood-pressure reading, without diagnosis of hypertension; Translations: [Elevated blood pressure reading without diagnosis of hypertension] Onset: 2 Resolved: 2 Episodic Other circulatory disease (13 sources) Elevated blood pressure; Translations: [Elevated blood-pressure [...] Chronic Other ear and sense organ disorders (12 sources) Asymmetrical sensorineural hearing loss; Translations: [Sensorineural [...] Episodic Other ear and sense organ disorders (12 sources) Tinnitus of vascular origin; Translations: [Pulsatile tinnitus, unspecified ear] 09-12-2023 Episodic Other ear and sense organ disorders (12 sources) Tinnitus; Translations: [Tinnitus, unspecified ear] 09-26-2023 Episodic Comment on above: right sided tinnitus Other ear and sense organ disorders (5 sources) Tinnitus, unspecified ear; Translations: [Tinnitus, unspecified] 09-26-2023 Episodic Other gastrointestinal disorders (2 sources) Diarrhea, unspecified; Translations: [Diarrhea] Episodic Other gastrointestinal disorders (11 sources) Diarrhea; Translations: [Diarrhea, unspecified] 10-29-2023 Episodic [...] Resolved: 1 Episodic Other non-traumatic joint disorders (15 sources) Pain in unspecified hip; Translations: [Pain in joint, pelvic region and thigh] Episodic Other non-traumatic joint disorders (3 sources) Pain in left shoulder; Translations: [Left shoulder pain] Episodic Other non-traumatic joint disorders (13 sources) Multiple joint pain; Translations: [Pain in unspecified joint] 08-28-2023 Episodic Other non-traumatic joint disorders (10 sources) Hip pain; Translations: [Pain in unspecified [...] rhinitis] 08-28-2023 Chronic Other upper respiratory disease (10 sources) Other seasonal allergic rhinitis; Translations: [Allergic rhinitis, cause unspecified] Onset: 1 Resolved: 2 Chronic Other upper [...] EXPOS COVID-19] Onset: 3 Urinary tract infections (13 sources) Urinary tract infectious disease; Translations: [Urinary [...] Test Name Value Interpretation Reference Range Facility Basophils Auto (Bld) [#/Vol] on 03-20-2024 Basophils (Bld) [#/Vol] 0.1 10 3/uL 0.0-0.1 [facility] Basophils (Bld) [#/Vol] Automated basophil count 0.0-0.1 [facility] Basophils/100 WBC Auto (Bld) on 03-20-2024 Basophils/100 WBC (Bld) 0.9 % 0.2-2.0 [facility] Basophils/100 WBC (Bld) Automated basophil % 0.2-2.0 [facility] Cholesterol in LDL Calc [Mas s/Vol]on 03-20-2024 Cholesterol in LDL [Mass/Vol] 87.0 mg/dL [facility] Comment on above: <100 mg/dl [id number] 0-129 mg/dl NEAR OR ABOVE [id number] mg/dl BORDERLINE [id number] mg/dl HIGH>190 mg/dl VERY HIGH Cholesterol in LDL [Mass/Vol] Cholesterol in LDL [Mass/volume] in Serum or Plasma by calculation [facility] Comment on above: <100 mg/dl [id number] 0-129 mg/dl NEAR OR ABOVE [id number] mg/dl BORDERLINE [id number] mg/dl HIGH>190 mg/dl VERY HIGH Cholesterol in VLDL Calc [Ma ss/Vol]on 03-20-2024 Cholesterol in VLDL [Mass/Vol] 15.0 mg/dL [facility] Cholesterol in VLDL [Mass/Vol] Cholesterol in VLDL [Mass/volume] in Serum or Plasma by calculation [facility] Eosinophils/100 WBC Auto (Bl d)on 03-20-2024 Eosinophils/100 WBC (Bld) 3.3 % 0.9-7.0 [facility] Eosinophils/100 WBC (Bld) Automated eosinophil % 0.9-7.0 [facility] Erythrocyte distribution wid th Auto (RBC) [Ratio]on 03-20-2024 Erythrocyte distribution width (RBC) [Ratio] 12.4 % 11.0-15.0 [facility] Erythrocyte distribution width (RBC) [Ratio] Erythrocyte distribution width [Ratio] by Automated count 11.0-15.0 [facility] Estimated glomerular filtrat ion rate (GFR) non- Americanon 03-20-2024 GFR/1.73 sq M.predicted among non-blacks MDRD (S/P/Bld) [Vol rate/Area] mL/min/{1.73_m2} >=60 mL/min/1.73m 2 [facility] GFR/1.73 sq M.predicted among non-blacks MDRD (S/P/Bld) [Vol rate/Area] Estimated glomerular filtration rate (GFR) non- >=60 mL/min/1.73m 2 [facility] Globulin Calc (S) [Mass/Vol] on 03-20-2024 Globulin (S) [Mass/Vol] 3.3 g/dL [facility] Globulin (S) [Mass/Vol] Serum globulin measurement by calculation (mass/volume) [facility] Glucose mean value [Mass/vol ume] in Blood Estimated from glycated hemoglobinon 03-20-2024 Average glucose Estimated from glycated hemoglobin (Bld) [Mass/Vol] 140 mg/dL [facility] Average glucose Estimated from glycated hemoglobin (Bld) [Mass/Vol] Glucose mean value [Mass/volume] in Blood Estimated from glycated hemoglobin [facility] Hematocrit Auto (Bld) [Volum e fraction]on 03-20-2024 Hematocrit (Bld) [Volume fraction] 39.9 % 36.0-48.0 [facility] Hematocrit (Bld) [Volume fraction] Hematocrit [Volume Fraction] of Blood by Automated count 36.0-48.0 [facility] Hemoglobin [Mass/volume] in Bloodon 03-20-2024 Hemoglobin (Bld) [Mass/Vol] 13.2 g/dL 12.0-16.0 [facility] Hemoglobin (Bld) [Mass/Vol] Hemoglobin [Mass/volume] in Blood 12.0-16.0 [facility] Laboratory - Chemistry and C hemistry - challengeon 03-20-2024 Albumin [Mass/Vol] 3.3 g/dL Low 3.4-5.0 [facility] ALP [Catalytic activity/Vol] 72 U/L 46-116 [facility] ALT [Catalytic activity/Vol] 22 U/L 14-59 [facility] AST [Catalytic activity/Vol] 11 U/L Low 15-37 [facility] Bilirubin [Mass/Vol] 0.4 mg/dL 0.2-1.0 [facility] Calcium [Mass/Vol] 9.0 mg/dL 8.5-10.1 [facility] Chloride [Moles/Vol] 105 mmol/L 98-107 [facility] Cholesterol [Mass/Vol] 174 mg/dL <=200 [facility] Cholesterol in HDL [Mass/Vol] 72 mg/dL High 40-60 [facility] Comment on above: > or =60 mg/dl - LOW CARDIOVASCULAR RISK<40 mg/dl - HIGH CARDIOVASCULAR RISK CO2 [Moles/Vol] 28.6 mmol/L 21.0-32.[address] [facility] Creatinine [Mass/Vol] 0.89 mg/dL 0.55-1.[address] [facility] Free T4 [Mass/Vol] 1.53 ng/dL High 0.76-1.46 [facility] GFR/1.73 sq M.predicted MDRD (S/P/Bld) [Vol rate/Area] mL/min/{1.73_m2} >=60 mL/min/1.73m 2 [facility] Glucose [Mass/Vol] 119 mg/dL High 74-106 [facility] Potassium [Moles/Vol] 4.1 mmol/L 3.5-5.[address] [facility] Protein [Mass/Vol] 6.6 g/dL 6.4-8.2 [facility] Sodium [Moles/Vol] 143 mmol/L 136-145 [facility] Triglyceride [Mass/Vol] 75 mg/dL <=150 [facility] TSH Qn 1.000 m[IU]/L 0.358-3.740 [facility] Urea nitrogen [Mass/Vol] 18.0 mg/dL 7.0-18.0 [facility] Urea nitrogen/Creatinine [Mass ratio] 20.2 mg/mg [facility] Laboratory - Hematology and Cell countson 03-20-2024 HbA1c (Bld) [Mass fraction] 6.5 % High 4.5-6.2 [facility] Comment on above: ADA RECOMMENDED LIMI T 4.0 - 6.0ADA THERAPEUTIC TARGET < 7.0ACTION SUGGESTED> 7.0 Immature granulocytes/100 WBC (Bld) 0.2 % 0.0-0.5 [facility] Leukocytes [#/volume] correc reilly for nucleated erythrocytes in Blood by Automated counon 03-20-2024 WBC corrected for nucl RBC Auto (Bld) [#/Vol] 8.5 10 3/uL 4.0-11.0 [facility] WBC corrected for nucl RBC Auto (Bld) [#/Vol] Leukocytes [#/volume] corrected for nucleated erythrocytes in Blood by Automated coun 4.0-11.0 [facility] Lymphocytes Auto (Bld) [#/Vo l]on 03-20-2024 Lymphocytes (Bld) [#/Vol] 2.3 10 3/uL 1.2-3.8 [facility] Lymphocytes (Bld) [#/Vol] Lymphocytes [#/volume] in Blood by Automated count 1.2-3.8 [facility] Lymphocytes/100 WBC Auto (Bl d)on 03-20-2024 Lymphocytes/100 WBC (Bld) 26.5 % 20.5-60.0 [facility] Lymphocytes/100 WBC (Bld) Lymphocytes/100 leukocytes in Blood by Automated count 20.5-60.0 [facility] MCH Auto (RBC) [Entitic mass ]on 03-20-2024 MCH (RBC) [Entitic mass] 31.0 pg 26.7-34.0 [facility] MCH (RBC) [Entitic mass] MCH [Entitic mass] by Automated count 26.7-34.0 [facility] MCHC Auto (RBC) [Mass/Vol]on 03-20-2024 MCHC (RBC) [Mass/Vol] 33.1 g/dL 29.9-35.[address] [facility] MCHC (RBC) [Mass/Vol] MCHC [Mass/volume] by Automated count 29.9-35.2 [facility] MCV Auto (RBC) [Entitic vol] on 03-20-2024 MCV (RBC) [Entitic vol] 93.7 fL 81.0-99.0 [facility] MCV (RBC) [Entitic vol] MCV [Entitic volume] by Automated count 81.0-99.0 [facility] Monocytes Auto (Bld) [#/Vol] on 03-20-2024 Monocytes (Bld) [#/Vol] 0.6 10 3/uL 0.3-0.8 [facility] Monocytes (Bld) [#/Vol] Automated blood monocyte count 0.3-0.8 [facility] Monocytes/100 WBC Auto (Bld) on 03-20-2024 Monocytes/100 WBC (Bld) 6.4 % 1.7-12.0 [facility] Monocytes/100 WBC (Bld) Automated monocyte % 1.7-12.0 [facility] Neutrophils Auto (Bld) [#/Vo l]on 03-20-2024 Neutrophils (Bld) [#/Vol] 5.4 10 3/uL 1.4-6.5 [facility] Neutrophils (Bld) [#/Vol] Neutrophils [#/volume] in Blood by Automated count 1.4-6.5 [facility] Neutrophils/100 WBC Auto (Bl d)on 03-20-2024 Neutrophils/100 WBC (Bld) 62.7 % 43.0-75.0 [facility] Neutrophils/100 WBC (Bld) Automated neutrophil % 43.0-75.0 [facility] No Panel Informationon 03-20 25-Hydroxy Vitamin D Total 36.0 ng/mL [facility] Comment on above: <20 ng/mL Vit D defi cient20-<30 ng/mL Vit D -434 ng/mL Vit D sufficient>100 ng/mL Potential Toxicity Eosinophils # (Auto) 0.3 10 3/uL 0.0-0.[address] [facility] Immature Granulocyte # (Auto) 0.02 10 3/uL 0.00-0.03 [facility] Total Triiodothyronine 99 ng/dL 71-180 [facility] Comment on above: Performed at: [address] [id number] Director: Giuseppe Newell PhD, Phone: [phone] Platelet mean volume Auto (B ld) [Entitic vol]on 03-20-2024 Platelet mean volume (Bld) [Entitic vol] 9.5 fL 9.5-13.5 [facility] Platelet mean volume (Bld) [Entitic vol] Platelet mean volume [Entitic volume] in Blood by Automated count 9.5-13.5 [facility] Platelets Auto (Bld) [#/Vol] on 03-20-2024 Platelets (Bld) [#/Vol] 364 10 3/uL 150-450 [facility] Platelets (Bld) [#/Vol] Platelets [#/volume] in Blood by Automated count 150-450 [facility] RBC Auto (Bld) [#/Vol]on RBC (Bld) [#/Vol] 4.26 10 6/uL 4.20-5.40 [facility] RBC (Bld) [#/Vol] Erythrocytes [#/volume] in Blood by Automated count 4.20-5.40 [facility] Serum or plasma albumin/glob ulin mass ratioon 03-20-2024 Albumin/Globulin [Mass ratio] 1.0 {ratio} [facility] Albumin/Globulin [Mass ratio] Serum or plasma albumin/globulin mass ratio [facility] Serum or plasma anion gap de terminationon 03-20-2024 Anion gap [Moles/Vol] 13.5 [facility] Anion gap [Moles/Vol] Serum or plasma an ion gap determination [facility] Serum or plasma total choles terol/high density lipoprotein (HDL) cholesterol mass constantin 03-20-2024 Cholesterol.total/Cho lesterol in HDL [Mass ratio] 2.4 {ratio} [facility] Comment on above: 3.3 - 4.4 LOW RISK4. 4 - 7.1 AVERAGE RISK7.1 - 11.0 MODERATE RISK>11.0 HIGH RISK Cholesterol.total/Cho lesterol in HDL [Mass ratio] Serum or plasma total cholesterol/high density lipoprotein (HDL) cholesterol mass rat [facility] Comment on above: 3.3 - 4.4 LOW RISK4. 4 - 7.1 AVERAGE RISK7.1 - 11.0 MODERATE RISK>11.0 HIGH RISK Gastroenterology Office/Clin ic Noteon 12-12-2023 Gastroenterology Office/Clinic Note Chief Complaint Followup for abd pain, chest pain, vomiting, diarrhea History of Present Illness Patient presents to GI clinic for a followup for abdominal pain radiating to chest pain, vomiting and diarrhea. KATIANA was 06/26/22 Continues to have persistent acid reflux despite Nexium 40 mg daily. Has anywhere from 5-10 stools per day type on Thomas stool scale form, urgent and explosive to [...] water, # 120 tabs, 0 Refill(s), Pharmacy: [id number] esomeprazole, 1 caps, Oral, BID, # 180 caps, 0 Refill(s), Pharmacy: [id number] ondansetron, 1 tabs, Oral, q8hr, PRN, # 60 tabs, 0 Refill(s), Pharmacy: [id number] polyethylene glycol 3350 with electrolytes, See Instructions, for colonoscopy prep, # 4,000 mL, 0 Refill(s), Pharmacy: [id number] 1. Diarrhea s/p cholecystectomy - check [...] of adequate bowel prep and need for coach tour driver to accompany day of procedure, verbalizes [...] Endometriosis Fibromyalg (more content not included)... Normal [facility] XR hips BI 4V adulton 2023 XR hips BI 4V adult [facility] [address] [address] XRay Report Signed Patient: Canelo Pathak MR#: [id number] 4 : 1965 Acct:[id number] Age/Sex: 58 / F ADM Date: 12/05/23 Loc: XD Room: Type: [facility] Attending Dr: Logan Brown MD [...] Omid Seals M.D.12/05/2023 5:09 PM Dictation Location: [place] [address] Transcribed By: [facility] 12/05/231708 Dictated By: Omid Seals DO 12/05/231707 Signed By: 12/05/231708 Normal [facility] XR lumbar spine AP/LAT/FLX/E XTon 12-05-2023 XR lumbar spine AP/LAT/FLX/EXT [address] [address] XRay Report Signed Patient: Canelo Pathak MR#: [id number] 4 : 1965 Acct:[id number] Age/Sex: 58 / F ADM Date: 12/05/23 Loc: XD Room: Type: [facility] Attending Dr: Logan Brown MD [...] Omid Seals M.D.12/05/2023 5:08 PM Dictation Location: [place] [address] Transcribed By: [facility] 12/05/23 170 Dictated By: Omid Seals DO 12/05/231705 Signed By: 12/05/231707 Normal [facility] Estimated glomerular filtrat ion rate (GFR) non- Americanon 10-25-2023 GFR/1.73 sq M.predicted among non-blacks MDRD (S/P/Bld) [Vol rate/Area] mL/min/{1.73_m2} >=60 [facility] Laboratory - Chemistry and C hemistry - challengeon 10-25-2023 Calcium [Mass/Vol] 9.3 mg/dL 8.5-10.1 [facility] Chloride [Moles/Vol] 103 mmol/L 98-107 [facility] CO2 [Moles/Vol] 29.7 mmol/L 21.0-32.[address] [facility] Creatinine [Mass/Vol] 0.88 mg/dL 0.55-1.[address] [facility] Free T4 [Mass/Vol] 1.33 ng/dL 0.76-1.46 [facility] GFR/1.73 sq M.predicted MDRD (S/P/Bld) [Vol rate/Area] mL/min/{1.73_m2} >=60 [facility] Glucose [Mass/Vol] 121 mg/dL High 74-106 [facility] Potassium [Moles/Vol] 4.4 mmol/L 3.5-5.[address] [facility] Sodium [Moles/Vol] 140 mmol/L 136-145 [facility] TSH Qn 5.994 m[IU]/L High 0.358-3.740 [facility] Urea nitrogen [Mass/Vol] 18.0 mg/dL 7.0-18.0 [facility] Urea nitrogen/Creatinine [Mass ratio] 20.5 mg/mg [facility] No Panel Informationon 10-24 Total Triiodothyronine 100 ng/dL 71-180 [facility] Comment on above: Performed at: [address] Director: Giuseppe Newell PhD, Phone: [phone] Serum or plasma anion gap de terminationon 10-25-2023 Anion gap [Moles/Vol] 11.7 mmol/L [facility] Patient Correspondenceon Patient Correspondence [id number]#1 .00TIFF Normal [facility] Automated epithelial cells c ount in urine sediment (number/area)on 08-23-2023 Epithelial cells Auto (Urine sed) [#/Area] RARE #/LPF NONE/RARE [facility] Automated leukocytes count i n urine sediment (number/area)on 08-23-2023 WBC Auto (Urine sed) [#/Area] 0-2 #/HPF 0-2 [facility] Automated urine specific gra vity by refractometryon 08-23-2023 Specific gravity Refractometry automated (U) [Rel density] >=1.030 1.005-1.025 [facility] Basophils Auto (Bld) [#/Vol] on 08-23-2023 Basophils (Bld) [#/Vol] 0.1 10 3/uL 0.0-0.1 [facility] Basophils/100 WBC Auto (Bld) on 08-23-2023 Basophils/100 WBC (Bld) 1.4 % 0.2-2.0 [facility] Bilirubin Auto test strip (U ) [Mass/Vol]on 08-23-2023 Bilirubin (U) [Mass/Vol] Negative NEGATIVE [facility] Casts typing in urine sedime nt by light microscopyon 08-23-2023 Casts LM Nom (Urine sed) NONE SEEN #/LPF NONE SEEN [facility] Cholesterol in LDL Calc [Mas s/Vol]on 08-23-2023 Cholesterol in LDL [Mass/Vol] 101.0 mg/dL [facility] Comment on above: <100 mg/dl [id number] 0-129 mg/dl NEAR OR ABOVE [id number] mg/dl BORDERLINE [id number] mg/dl HIGH>190 mg/dl VERY HIGH Cholesterol in VLDL Calc [Ma ss/Vol]on 08-23-2023 Cholesterol in VLDL [Mass/Vol] 25.0 mg/dL [facility] Color Auto (U)on 08-23-2023 Color (U) YELLOW YELLOW [facility] Eosinophils/100 WBC Auto (Bl d)on 08-23-2023 Eosinophils/100 WBC (Bld) 5.2 % 0.9-7.0 [facility] Erythrocyte distribution wid th Auto (RBC) [Ratio]on 08-23-2023 Erythrocyte distribution width (RBC) [Ratio] 12.1 % 11.0-15.0 [facility] Estimated glomerular filtrat ion rate (GFR) non- Americanon 08-23-2023 GFR/1.73 sq M.predicted among non-blacks MDRD (S/P/Bld) [Vol rate/Area] mL/min/{1.73_m2} >=60 [facility] Globulin Calc (S) [Mass/Vol] on 08-23-2023 Globulin (S) [Mass/Vol] 3.3 g/dL [facility] Glucose mean value [Mass/vol ume] in Blood Estimated from glycated hemoglobinon 08-23-2023 Average glucose Estimated from glycated hemoglobin (Bld) [Mass/Vol] 143 mg/dL [facility] Hematocrit Auto (Bld) [Volum e fraction]on 08-23-2023 Hematocrit (Bld) [Volume fraction] 41.2 % 36.0-48.0 [facility] Hemoglobin [Mass/volume] in Bloodon 08-23-2023 Hemoglobin (Bld) [Mass/Vol] 13.6 g/dL 12.0-16.0 [facility] Ketones Auto test strip (U) [Mass/Vol]on 08-23-2023 Ketones (U) [Mass/Vol] Negative NEGATIVE [facility] Laboratory - Chemistry and C hemistry - challengeon 08-23-2023 Albumin [Mass/Vol] 3.8 g/dL 3.4-5.0 [facility] ALP [Catalytic activity/Vol] 72 U/L 46-116 [facility] ALT [Catalytic activity/Vol] 25 U/L 14-59 [facility] AST [Catalytic activity/Vol] 14 U/L 15-37 [facility] Bilirubin [Mass/Vol] 0.5 mg/dL 0.2-1.0 [facility] Calcium [Mass/Vol] 9.1 mg/dL 8.5-10.1 [facility] Chloride [Moles/Vol] 103 mmol/L 98-107 [facility] Cholesterol [Mass/Vol] 193 mg/dL <=200 [facility] Cholesterol in HDL [Mass/Vol] 67 mg/dL 40-60 [facility] Comment on above: > or =60 mg/dl - LOW CARDIOVASCULAR RISK<40 mg/dl - HIGH CARDIOVASCULAR RISK CO2 [Moles/Vol] 28.7 mmol/L 21.0-32.[address] [facility] Creatinine [Mass/Vol] 0.77 mg/dL 0.55-1.[address] [facility] Free T4 [Mass/Vol] 1.11 ng/dL 0.76-1.46 [facility] GFR/1.73 sq M.predicted MDRD (S/P/Bld) [Vol rate/Area] mL/min/{1.73_m2} >=60 [facility] Glucose [Mass/Vol] 117 mg/dL 74-106 [facility] Potassium [Moles/Vol] 4.2 mmol/L 3.5-5.[address] [facility] Protein [Mass/Vol] 7.1 g/dL 6.4-8.2 [facility] Sodium [Moles/Vol] 142 mmol/L 136-145 [facility] Triglyceride [Mass/Vol] 125 mg/dL <=150 [facility] TSH Qn 18.751 m[IU]/L 0.358-3.740 [facility] Urea nitrogen [Mass/Vol] 19.0 mg/dL 7.0-18.0 [facility] Urea nitrogen/Creatinine [Mass ratio] 24.7 mg/mg [facility] Laboratory - Hematology and Cell countson 08-23-2023 HbA1c (Bld) [Mass fraction] 6.6 % 4.5-6.2 [facility] Comment on above: ADA RECOMMENDED LIMI T 4.0 - 6.0ADA THERAPEUTIC TARGET < 7.0ACTION SUGGESTED> 7.0 Immature granulocytes/100 WBC (Bld) 0.3 % 0.0-0.5 [facility] Leukocytes [#/volume] correc reilly for nucleated erythrocytes in Blood by Automated counon 08-23-2023 WBC corrected for nucl RBC Auto (Bld) [#/Vol] 7.4 10 3/uL 4.0-11.0 [facility] Lymphocytes Auto (Bld) [#/Vo l]on 08-23-2023 Lymphocytes (Bld) [#/Vol] 2.2 10 3/uL 1.2-3.8 [facility] Lymphocytes/100 WBC Auto (Bl d)on 08-23-2023 Lymphocytes/100 WBC (Bld) 29.7 % 20.5-60.0 [facility] MCH Auto (RBC) [Entitic mass ]on 08-23-2023 MCH (RBC) [Entitic mass] 31.3 pg 26.7-34.0 [facility] MCHC Auto (RBC) [Mass/Vol]on 08-23-2023 MCHC (RBC) [Mass/Vol] 33.0 g/dL 29.9-35.[address] [facility] MCV Auto (RBC) [Entitic vol] on 08-23-2023 MCV (RBC) [Entitic vol] 94.7 fL 81.0-99.0 [facility] Monocytes Auto (Bld) [#/Vol] on 08-23-2023 Monocytes (Bld) [#/Vol] 0.5 10 3/uL 0.3-0.8 [facility] Monocytes/100 WBC Auto (Bld) on 08-23-2023 Monocytes/100 WBC (Bld) 6.4 % 1.7-12.0 [facility] Mucus LM Ql (Urine sed)on Mucus Ql (Urine sed) MODERATE NONE SEEN [facility] Neutrophils Auto (Bld) [#/Vo l]on 08-23-2023 Neutrophils (Bld) [#/Vol] 4.2 10 3/uL 1.4-6.5 [facility] Neutrophils/100 WBC Auto (Bl d)on 08-23-2023 Neutrophils/100 WBC (Bld) 57.0 % 43.0-75.0 [facility] No Panel Informationon 08-22 25-Hydroxy Vitamin D Total 35.2 ng/mL [facility] Comment on above: <20 ng/mL Vit D defi cient20-<30 ng/mL Vit D hdjndodtsmly20-245 ng/mL Vit D sufficient>100 ng/mL Potential Toxicity Eosinophils # (Auto) 0.4 10 3/uL 0.0-0.[address] [facility] Free Triiodothyronine 1.94 pg/mL 2.18-3.[address] [facility] Immature Granulocyte # (Auto) 0.02 10 3/uL 0.00-0.03 [facility] Platelet mean volume Auto (B ld) [Entitic vol]on 08-23-2023 Platelet mean volume (Bld) [Entitic vol] 9.7 fL 9.5-13.5 [facility] Platelets Auto (Bld) [#/Vol] on 08-23-2023 Platelets (Bld) [#/Vol] 347 10 3/uL 150-450 [facility] Protein Auto test strip (U) [Mass/Vol]on 08-23-2023 Protein (U) [Mass/Vol] Negative NEG/TRACE [facility] RBC Auto (Bld) [#/Vol]on RBC (Bld) [#/Vol] 4.35 10 6/uL 4.20-5.40 [facility] Serum or plasma albumin/glob ulin mass ratioon 08-23-2023 Albumin/Globulin [Mass ratio] 1.2 {ratio} [facility] Serum or plasma anion gap de terminationon 08-23-2023 Anion gap [Moles/Vol] 14.5 mmol/L [facility] Serum or plasma total choles terol/high density lipoprotein (HDL) cholesterol mass constantin 08-23-2023 Cholesterol.total/Cho lesterol in HDL [Mass ratio] 2.9 {ratio} [facility] Comment on above: 3.3 - 4.4 LOW RISK4. 4 - 7.1 AVERAGE RISK7.1 - 11.0 MODERATE RISK>11.0 HIGH RISK Specific gravity Auto test s trip (U) [Rel density]on 08-23-2023 Specific gravity (U) [Rel density] CLEAR CLEAR [facility] Urine bacteria detection by automated methodon 08-23-2023 Bacteria Auto Ql (U) NONE SEEN #/HPF NONE SEEN [facility] Urine glucose measurement by test strip (mass/volume)on 08-23-2023 Glucose Test strip (U) [Mass/Vol] Negative NEGATIVE [facility] Urine hemoglobin detection b y automated test stripon 08-23-2023 Hemoglobin Auto test strip Ql (U) Negative NEGATIVE [facility] Urine nitrite detection by a utomated test stripon 08-23-2023 Nitrite Auto test strip Ql (U) Negative NEGATIVE [facility] Urine sediment crystal ident ification by light microscopyon 08-23-2023 Crystals LM Nom (Urine sed) None Seen #/HPF None Seen [facility] Urine sediment leukocyte cou nt by microscopy (number/high power field)on 08-23-2023 WBC LM.HPF (Urine sed) [#/Area] 0-2 #/HPF NONE SEEN [facility] Urobilinogen Auto test strip (U) [Mass/Vol]on 04-04-2024 Urobilinogen Qn (U) 0.2 {David'U}/dL 0.2-1.0 [facility] pH Auto test strip (U)on pH (U) 5.5 [pH] 5.0-9.0 [facility] Patient Correspondenceon Patient Correspondence [id number]# 1.00TIFF Normal [facility] Insurance Correspondence Off iceon 05-16-2023 Insurance Correspondence Office [id number]# 1.00TIFF Normal [facility] Consent for Treatmenton 04-21 Consent for Treatment [id number]# 1.00TIFF Normal [facility] Consultation Noteon 05-10-20 Consultation Note Patient: GENE [...] She has tried conservative measures inclusive of vyve-tol-ygldzir medications and prescription medications inclusive of meloxicam, [...] Histories Past Medical History: Active Acid reflux (949558828) Asthma (685802899) Hypothyroid (221709962) Family History: No family history items have been selected or recorded. Procedure history: Myringotomy and insertion of T tube (289979699). Comments: 02/22/2011 10:22 REKHA Marcum RN, [place] x2 Tonsillectomy (931551222). Cholecystectomy (22857236). Laparoscopy (160805991). Abdominal hysterectomy (281638697). Physical Examination Vital Signs (last 24 hrs) Last Charted Heart Rate Peripheral 81 bpm (MAY 10 14:10) SBP H 162mmHg (MAY 10:10) DBP H 90mmHg (MAY 10:10) Weight 123.7 kg (DEC 21 14:10) BMI 44.89 (MAY 10 14:10) General: No acute distress. Patient appears well-nourished. [...] patient, who voiced (more content not included)... [facility] Comment on above: Result Comment: Elec tronically Signed By: Casper Nguyen DO\.br\Date and Time Signed: 05/10/23 15:07 EST HIPAA Forms Officeon 023 HIPAA Forms Office [id number]#1 .00TIFF [facility] Legal Correspondence Officeo n 05-10-2023 Legal Correspondence Office [id number]#1 .00TIFF [facility] Legal Correspondence Office [id number]#1 .00TIFF [facility] Office/Clinic Note-Physician on 05-10-2023 Office/Clinic Note-Physician [id number]#1 .00TIFF Normal [facility] Patient Correspondenceon Patient Correspondence [id number]#1 .00TIFF Normal [facility] Patient Correspondence [id number]#1 .00TIFF Normal [facility] Patient Correspondence [id number]#1 .00TIFF Normal [facility] Patient Correspondence [id number]#1 .00TIFF Normal [facility] Patient Correspondence [id number]#1 .00TIFF Normal [facility] Patient History Officeon Patient History Office [id number]#1 .00TIFF Normal [facility] Outside Records Officeon Outside Records Office [id number]# 1.00TIFF Normal [facility] Radiology Outside Office [employer] yon 05-07-2023 Radiology Outside Office Copy [id number]# 1.00TIFF Normal [facility] Referrals Officeon Referrals Office [id number]# 1.00TIFF Normal [facility] MR LUMBAR SPINE WO CONTRASTo n 04-24-2023 [...] Not Available Comment on above: Order Comment: Magdi nt is Diabetic Type 2 Possible Transdermal patch CBC AUTO DIFFon 09-08-2022 BASO # 0.1 103/ul Normal 0.0-0.1 [facility] Comment on above: Performed By: #### F T3, CMP, LIPID, TSH #### [facility] [address] [address] [address] Gin Chew Basophils/100 WBC (Bld) 0.9 % Normal 0.2-2.0 [facility] Comment on above: Performed By: #### F T3, CMP, LIPID, TSH #### [facility] [address] [address] [address] Gin Chew EO # 0.5 103/ul Normal 0.0-0.7 [facility] Comment on above: Performed By: #### F T3, CMP, LIPID, TSH #### [facility] [address] [address] [address] Gin Chew Eosinophils/100 WBC (Bld) 5.8 % Normal 0.9-7.0 [facility] Comment on above: Performed By: #### F T3, CMP, LIPID, TSH #### [facility] [address] [place] [address] Dr. Gin Chew Erythrocyte distribution width (RBC) [Ratio] 13.0 % Normal 11.0-15.0 [facility] Comment on above: Performed By: #### F T3, CMP, LIPID, TSH #### [facility] [address] [place] [address] Dr. Gin Chew Hematocrit (Bld) [Volume fraction] 39.7 % Normal 36.0-48.0 [facility] Comment on above: Performed By: #### F T3, CMP, LIPID, TSH #### [facility] [address] [place] [address] Dr. Gin Cehw Hemoglobin (Bld) [Mass/Vol] 13.2 g/dL Normal 12.0-16.0 [facility] Comment on above: Performed By: #### F T3, CMP, LIPID, TSH #### [facility] [address] [place] [address] Dr. Gin Chew IG # 0.05 10e3/ul Critically high 0.00-0.03 [facility] Comment on above: Performed By: #### F T3, CMP, LIPID, TSH #### [facility] [address] [place] [address] Dr. Gin Chew IG % 0.6 % Critically high 0.0-0.5 [facility] Comment on above: Performed By: #### F T3, CMP, LIPID, TSH #### [facility] [address] [place] [address] Dr. Gin Chew LYMPH # 2.1 103/ul Normal 1.2-3.8 [facility] Comment on above: Performed By: #### F T3, CMP, LIPID, TSH #### [facility] [address] [place] [address] Dr. Gin Chew Lymphocytes/100 WBC (Bld) 27.4 % Normal 20.5-60.0 [facility] Comment on above: Performed By: #### F T3, CMP, LIPID, TSH #### [facility] [address] [address] [address] Gin Chew MANUAL DIFF REQ NO Normal [facility] Comment on above: Performed By: #### F T3, CMP, LIPID, TSH #### [facility] [address] [place] [address] Dr. Gin Chew MCH (RBC) [Entitic mass] 30.9 pg Normal 26.7-34.0 [facility] Comment on above: Performed By: #### F T3, CMP, LIPID, TSH #### [facility] [address] [place] [address] Dr. Gin Chew MCHC (RBC) [Mass/Vol] 33.2 g/dL Normal 29.9-35.2 [facility] Comment on above: Performed By: #### F T3, CMP, LIPID, TSH #### [facility] [address] [place] [address] Dr. Gin Chew MCV (RBC) [Entitic vol] 93.0 fL Normal 81.0-99.0 [facility] Comment on above: Performed By: #### F T3, CMP, LIPID, TSH #### [facility] [address] [place] [address] Dr. Gin Chew MONO # 0.6 103/ul Normal 0.3-0.8 [facility] Comment on above: Performed By: #### F T3, CMP, LIPID, TSH #### [facility] [address] [place] [address] Dr. Gin Chew Monocytes/100 WBC (Bld) 7.1 % Normal 1.7-12.0 [facility] Comment on above: Performed By: #### F T3, CMP, LIPID, TSH #### [facility] [address] [place] [address] Dr. Gin Chew NEUT # 4.5 103/ul Normal 1.4-6.5 [facility] Comment on above: Performed By: #### F T3, CMP, LIPID, TSH #### [facility] [address] [place] [address] Dr. Gin Chew Neutrophils/100 WBC (Bld) 58.2 % Normal 43.0-75.0 [facility] Comment on above: Performed By: #### F T3, CMP, LIPID, TSH #### [facility] [address] [place] [address] Dr. Gin Chew Platelet mean volume (Bld) [Entitic vol] 9.7 fL Normal 9.5-13.5 [facility] Comment on above: Performed By: #### F T3, CMP, LIPID, TSH #### [facility] [address] [place] [address] Dr. Gin Chew PLT 339 103/ul Normal 150-450 [facility] Comment on above: Performed By: #### F T3, CMP, LIPID, TSH #### [facility] [address] [place] [address] Dr. Gin Chew RBC 4.27 106/ul Normal 4.20-5.40 [facility] Comment on above: Performed By: #### F T3, CMP, LIPID, TSH #### [facility] [address] [place] [address] Dr. Gin Chew WBC 7.7 103/ul Normal 4.0-11.0 [facility] Comment on above: Performed By: #### F T3, CMP, LIPID, TSH #### [facility] [address] [place] [address] Dr. Gin Chew PROF CHEM 8 (BAS METB)on Anion gap [Moles/Vol] 9.4 mmol/L Normal [facility] Comment on above: Performed By: #### F T3, CMP, LIPID, TSH #### [facility] [address] [place] [address] Dr. Gin Chew Calcium [Mass/Vol] 9.1 mg/dL Normal 8.5-10.1 [facility] Comment on above: Performed By: #### F T3, CMP, LIPID, TSH #### [facility] [address] [place], [place] [id number] Dr. Gin Chew Chloride [Moles/Vol] 104 mmol/L Normal 98-107 [facility] Comment on above: Performed By: #### F T3, CMP, LIPID, TSH #### [facility] [address] [address] [address] Gin Chew CO2 [Moles/Vol] 31.7 mmol/L Normal 21.0-32.0 [facility] Comment on above: Performed By: #### F T3, CMP, LIPID, TSH #### [facility] [address] [address] [address] Gin Chew Creatinine [Mass/Vol] 0.77 mg/dL Normal 0.55-1.02 [facility] Comment on above: Performed By: #### F T3, CMP, LIPID, TSH #### [facility] [address] [place] [address] Dr. Gin Chew EGFR-AF BULGARIAN >60 Normal >=60 [facility] Comment on above: Performed By: #### F T3, CMP, LIPID, TSH #### [facility] [address] [place] [address] Dr. Gin Chew EGFR-NON AF BULGARIAN >60 Normal >=60 [facility] Comment on above: Performed By: #### F T3, CMP, LIPID, TSH #### [facility] [address] [address] [address] Gin Chew Glucose [Mass/Vol] 143 mg/dL Critically high 74-106 [facility] Comment on above: Performed By: #### F T3, CMP, LIPID, TSH #### [facility] [address] [address] [address] Gin Chew Potassium [Moles/Vol] 4.1 mmol/L Normal 3.5-5.1 [facility] Comment on above: Performed By: #### F T3, CMP, LIPID, TSH #### [facility] [address] [address] [address] Gin Chew Sodium [Moles/Vol] 141 mmol/L Normal 136-145 [facility] Comment on above: Performed By: #### F T3, CMP, LIPID, TSH #### [facility] [address] [address] [address] Gin Chew Urea nitrogen [Mass/Vol] 19.0 mg/dL Critically high 7.0-18.0 [facility] Comment on above: Performed By: #### F T3, CMP, LIPID, TSH #### [facility] [address] [id number] [address] Gin Chew Urea nitrogen/Creatinine [Mass ratio] 24.7 mg/mg Normal [facility] Comment on above: Performed By: #### F T3, CMP, LIPID, TSH #### [facility] [address] [address] [address] Gin Chew XR CHEST 2 Von [...] DURGA DENNIS Date: 2022-09-08 15:53 Normal [facility] CBC W MANUAL DIFFon 08-22-19 23 ANISOCYTOSIS 1+ Normal [facility] Comment on above: Performed By: #### C BCMAN #### [facility] [address] [place] [address] Dr. Gin Chew ATYPICAL LYMPH # Normal [facility] Comment on above: Performed By: #### C BCDORIS #### [facility] [address] [place] [address] Dr. Gin Chew ATYPICAL LYMPH % Normal [facility] Comment on above: Performed By: #### C TASIA #### [facility] [address] [place] [address] Dr. Gin Chew BAND # 0.6 103/ul Critically high 0.0-0.3 [facility] Comment on above: Performed By: #### C BCMAN #### [facility] [address] [place] [address] Dr. Gin Chew BAND % 4 % Normal 0-5 [facility] Comment on above: Performed By: #### C BCMAN #### [facility] [address] [place] [address] Dr. Gin Chew BASOM # 0.00 103/ul Normal 0.00-0.10 [facility] Comment on above: Performed By: #### C BCDORIS #### [facility] [address] [place] [address] Dr. Gin Chew BASOM % 0.0 % Critically low 0.2-2.0 [facility] Comment on above: Performed By: #### C BCDORIS #### [facility] [address] [place] [address] Dr. Gin Chew BLAST # Normal [facility] Comment on above: Performed By: #### C TASIA #### [facility] [address] [place] [address] Dr. Gin Chew BLAST % Normal [facility] Comment on above: Performed By: #### C BCDORIS #### [facility] [address] [place] [address] Dr. Gin Chew CORRECTED WBC Normal 4.0-11.0 The [facility] Comment on above: Performed By: #### C BCDORIS #### [facility] [address] [place] [address] Dr. Gin Chew EOS # 0.45 103/ul Normal 0.00-0.70 [facility] Comment on above: Performed By: #### C BCDORIS #### [facility] [address] [place] [address] Dr. Gin Chew EOS% 3.0 % Normal 0.9-7.0 [facility] Comment on above: Performed By: #### C TASIA #### [facility] [address] [place] [address] Dr. Gin Chew HCT 43.1 % Normal 36.0-48.0 [facility] Comment on above: Performed By: #### C BCDORIS #### [facility] [address] [place] [address] Dr. Gin Chew HGB 14.4 g/dl Normal 12.0-16.0 [facility] Comment on above: Performed By: #### C BCDORIS #### [facility] [address] [place] [address] Dr. Gin Chew LYMPHM # 3.93 103/ul Critically high 1.20-3.80 [facility] Comment on above: Performed By: #### C TASIA #### [facility] [address] [place] [address] Dr. Gin Chew LYMPHM% 26.0 % Normal 20.5-60.0 [facility] Comment on above: Performed By: #### C TASIA #### [facility] [address] [place] [address] Dr. Gin Chew MCH 31.0 pg Normal 26.7-34.0 [facility] Comment on above: Performed By: #### C TASIA #### [facility] [address] [place] [address] Dr. Gin Chew MCHC 33.4 g/dl Normal 29.9-35.2 [facility] Comment on above: Performed By: #### C TASIA #### [facility] [address] [place] [address] Dr. Gin Chew MCV 92.7 fL Normal 81.0-99.0 [facility] Comment on above: Performed By: #### C BCDORIS #### [facility] [address] [place] [address] Dr. Gin Chew METAMYELOCYTE # Normal [facility] Comment on above: Performed By: #### C BCDORIS #### [facility] [address] [place] [address] Dr. Gin Chew METAMYELOCYTE % Normal [facility] Comment on above: Performed By: #### C BCDORIS #### [facility] [address] [place] [address] Dr. Gin Chew MONOM# 1.06 103/ul Critically high 0.30-0.80 [facility] Comment on above: Performed By: #### C TASIA #### [facility] [address] [place] [address] Dr. Gin Chew MONOM% 7.0 % Normal 1.7-12.0 [facility] Comment on above: Performed By: #### C TASIA #### [facility] [address] [place] [address] Dr. Gin Chew MPV 9.7 fL Normal 9.5-13.5 [facility] Comment on above: Performed By: #### C TASIA #### [facility] [address] [place] [address] Dr. Gin Chew MYELOCYTE # Normal [facility] Comment on above: Performed By: #### C TASIA #### [facility] [address] [place] [address] Dr. Gin Chew MYELOCYTE % Normal [facility] Comment on above: Performed By: #### C TASIA #### [facility] [address] [place] [address] Dr. Gin Chew NRBC Normal [facility] Comment on above: Performed By: #### C TASIA #### [facility] [address] [place] [address] Dr. Gin Chew PLT 372 103/ul Normal 150-450 [facility] Comment on above: Performed By: #### C TASIA #### [facility] [address] [place] [address] Dr. Gin Chew RBC 4.65 106/ul Normal 4.20-5.40 [facility] Comment on above: Performed By: #### C TASIA #### [facility] [address] [place] [address] Dr. Gin Chew RDW 13.0 % Normal 11.0-15.0 [facility] Comment on above: Performed By: #### C TASIA #### [facility] [address] [place] [address] Dr. Gin Chew SEG # 9.06 103/ul Critically high 1.40-6.50 [facility] Comment on above: Performed By: #### C TASIA #### [facility] [address] [place] [address] Dr. Gin Chew SEG % 60.0 % Normal 43.0-75.0 [facility] Comment on above: Performed By: #### C TASIA #### [facility] [address] [place] [address] Dr. Gin Chew WBC 15.1 103/ul Critically high 4.0-11.0 [facility] Comment on above: Performed By: #### C TASIA #### [facility] [address] [place] [address] Dr. Gin Chew LACTATE/LACTIC ACIDon 2022 Lactate [Moles/Vol] 1.2 mmol/L Normal 0.4-2.0 [facility] Comment on above: Performed By: #### B MP #### [facility] [address] [place] [address] Dr. Gin Chew PROF CHEM 8 (BAS METB)on Anion gap [Moles/Vol] 11.4 mmol/L Normal [facility] Comment on above: Performed By: #### A 1C #### [facility] [address] [place] [address] Dr. Gin Chew Calcium [Mass/Vol] 9.2 mg/dL Normal 8.5-10.1 [facility] Comment on above: Performed By: #### A 1C #### [facility] [address] [place] [address] Dr. Gin Chew Chloride [Moles/Vol] 102 mmol/L Normal 98-107 [facility] Comment on above: Performed By: #### A 1C #### [facility] [address] [place] [address] Dr. Gin Chew CO2 [Moles/Vol] 31.3 mmol/L Normal 21.0-32.0 [facility] Comment on above: Performed By: #### A 1C #### [facility] [address] [address] [address] Gin Chew Creatinine [Mass/Vol] 0.86 mg/dL Normal 0.55-1.02 [facility] Comment on above: Performed By: #### A 1C #### [facility] [address] [address] [address] Gin Chew EGFR-AF BULGARIAN >60 Normal >=60 [facility] Comment on above: Performed By: #### A 1C #### [facility] [address] [address] [address] Gin Chew EGFR-NON AF BULGARIAN >60 Normal >=60 [facility] Comment on above: Performed By: #### A 1C #### [facility] [address] [place] [address] Dr. Gin Chew Glucose [Mass/Vol] 119 mg/dL Critically high 74-106 [facility] Comment on above: Performed By: #### A 1C #### [facility] [address] [place] [address] Dr. Gin Chew Potassium [Moles/Vol] 3.7 mmol/L Normal 3.5-5.1 [facility] Comment on above: Performed By: #### A 1C #### [facility] [address] [place] [address] Dr. Gin Chew Sodium [Moles/Vol] 141 mmol/L Normal 136-145 [facility] Comment on above: Performed By: #### A 1C #### [facility] [address] [place] [address] Dr. Gin Chew Urea nitrogen [Mass/Vol] 17.0 mg/dL Normal 7.0-18.0 [facility] Comment on above: Performed By: #### A 1C #### [facility] [address] [place] [address] Dr. Gin Chew Urea nitrogen/Creatinine [Mass ratio] 19.8 mg/mg Normal [facility] Comment on above: Performed By: #### A 1C #### [facility] [address] [place] [address] Dr. Gin Chew SED RATE WESTERGRENon 2022 SED RATE 8 mm/hr Normal <=30 [facility] Comment on above: Performed By: #### A 1C #### [facility] [address] [place] [address] Dr. Gin Chew CBC AUTO DIFFon 08-17-2022 BASO # 0.1 103/ul Normal 0.0-0.1 [facility] Comment on above: Performed By: #### B MP #### [facility] [address] [place] [address] Dr. Gin Chew Basophils/100 WBC (Bld) 0.7 % Normal 0.2-2.0 [facility] Comment on above: Performed By: #### B MP #### [facility] [address] [place] [address] Dr. Gin Chew EO # 0.3 103/ul Normal 0.0-0.7 [facility] Comment on above: Performed By: #### B MP #### [facility] [address] [place] [address] Dr. Gin Chew Eosinophils/100 WBC (Bld) 1.9 % Normal 0.9-7.0 [facility] Comment on above: Performed By: #### B MP #### [facility] [address] [place] [address] Dr. Gin Chew Erythrocyte distribution width (RBC) [Ratio] 12.9 % Normal 11.0-15.0 [facility] Comment on above: Performed By: #### B MP #### [facility] [address] [place] [address] Dr. Gin Chew Hematocrit (Bld) [Volume fraction] 42.9 % Normal 36.0-48.0 [facility] Comment on above: Performed By: #### B MP #### [facility] [address] [place] [address] Dr. Gin Chew Hemoglobin (Bld) [Mass/Vol] 14.3 g/dL Normal 12.0-16.0 [facility] Comment on above: Performed By: #### B MP #### [facility] [address] [place] [address] Dr. Gin Chew IG # 0.41 10e3/ul Critically high 0.00-0.03 [facility] Comment on above: Performed By: #### B MP #### [facility] [address] [place] [address] Dr. Gin Chew IG % 2.5 % Critically high 0.0-0.5 [facility] Comment on above: Performed By: #### B MP #### [facility] [address] [place] [address] Dr. Gin Chew LYMPH # 3.5 103/ul Normal 1.2-3.8 [facility] Comment on above: Performed By: #### B MP #### [facility] [address] [place] [address] Dr. Gin Chew Lymphocytes/100 WBC (Bld) 21.5 % Normal 20.5-60.0 [facility] Comment on above: Performed By: #### B MP #### [facility] [address] [place] [address] Dr. Gin Chew MANUAL DIFF REQ NO Normal [facility] Comment on above: Performed By: #### B MP #### [facility] [address] [place] [address] Dr. Gin Chew MCH (RBC) [Entitic mass] 30.9 pg Normal 26.7-34.0 [facility] Comment on above: Performed By: #### B MP #### [facility] [address] [place] [address] Dr. Gin Chew MCHC (RBC) [Mass/Vol] 33.3 g/dL Normal 29.9-35.2 [facility] Comment on above: Performed By: #### B MP #### [facility] [address] [place] [address] Dr. Gin Chew MCV (RBC) [Entitic vol] 92.7 fL Normal 81.0-99.0 [facility] Comment on above: Performed By: #### B MP #### [facility] [address] [place] [address] Dr. Gin Chew MONO # 1.0 103/ul Critically high 0.3-0.8 [facility] Comment on above: Performed By: #### B MP #### [facility] [address] [place] [address] Dr. Gin Chew Monocytes/100 WBC (Bld) 6.2 % Normal 1.7-12.0 [facility] Comment on above: Performed By: #### B MP #### [facility] [address] [address] [address] Gin Chew NEUT # 10.9 103/ul Critically high 1.4-6.5 [facility] Comment on above: Performed By: #### B MP #### [facility] [address] [place] [address] Dr. Gin Chew Neutrophils/100 WBC (Bld) 67.2 % Normal 43.0-75.0 [facility] Comment on above: Performed By: #### B MP #### [facility] [address] [place] [address] Dr. Gin Chew Platelet mean volume (Bld) [Entitic vol] 9.7 fL Normal 9.5-13.5 [facility] Comment on above: Performed By: #### B MP #### [facility] [address] [place] [address] Dr. Gin Chew PLT 424 103/ul Normal 150-450 [facility] Comment on above: Performed By: #### B MP #### [facility] [address] [place] [address] Dr. Gin Chew RBC 4.63 106/ul Normal 4.20-5.40 [facility] Comment on above: Performed By: #### B MP #### [facility] [address] [place], [place] [id number] Dr. Gin Chew WBC 16.2 103/ul Critically high 4.0-11.0 [facility] Comment on above: Performed By: #### B MP #### [facility] [address] [place] [address] HEAD WO CONon [...] Lloyd SANDRA Date: 2022-08-17 18:16 Normal [facility]21 SARS-CoV-2 (COVID-19) RNA ARIADNA+probe Ql (Unsp spec) Not detected Normal NOT DETECTED [facility] Comment on above: Result Comment: This test is not yet approved or cleared by the [place] FDA. When there are no FDA-approved or cleared tests available, and other criteria are met, FDA can make tests available under an emergency access mechanism called an Emergency Use Authorization (EUA). The EUA for this test is supported by the [employer] Coordinator of Health and Human Service's (HHS's) declaration [...] SARS-CoV-2. Performed By: #### A 1C #### [facility] [address] [place] [address] Dr. Gin Chew PROF CHEM 8 (BAS METB)on Anion gap [Moles/Vol] 13.8 mmol/L Normal [facility] Comment on above: Performed By: #### B MP #### [facility] [address] [place] [address] Dr. Gin Chew Calcium [Mass/Vol] 9.0 mg/dL Normal 8.5-10.1 [facility] [facility] Comment on above: Performed By: #### B MP #### [facility] [address] [place] [address] Dr. Gin Chew Chloride [Moles/Vol] 102 mmol/L Normal 98-107 [facility] Comment on above: Performed By: #### B MP #### [facility] [address] [place] [address] Dr. Gin Chew CO2 [Moles/Vol] 28.4 mmol/L Normal 21.0-32.0 [facility] Comment on above: Performed By: #### B MP #### [facility] [address] [place] [address] Dr. Gin Chew Creatinine [Mass/Vol] 0.93 mg/dL Normal 0.55-1.02 [facility] Comment on above: Performed By: #### B MP #### [facility] [address] [place] [address] Dr. Gin Chew EGFR-AF BULGARIAN >60 Normal >=60 [facility] Comment on above: Performed By: #### B MP #### [facility] [address] [place] [address] Dr. Gin Chew EGFR-NON AF BULGARIAN >60 Normal >=60 [facility] Comment on above: Performed By: #### B MP #### [facility] [address] [place] [address] Dr. Gin Chew Glucose [Mass/Vol] 133 mg/dL Critically high 74-106 T [facility] Comment on above: Performed By: #### B MP #### [facility] [address] [address] [address] Gin Chew Potassium [Moles/Vol] 4.2 mmol/L Normal 3.5-5.1 [facility] Comment on above: Performed By: #### B MP #### [facility] [address] [address] [address] Gin Chew Sodium [Moles/Vol] 140 mmol/L Normal 136-145 [facility] Comment on above: Performed By: #### B MP #### [facility] [address] [place] [address] Dr. Gin Chew Urea nitrogen [Mass/Vol] 20.0 mg/dL Critically high 7.0-18.0 [facility] Comment on above: Performed By: #### B MP #### [facility] [address] [place] [address] Dr. Gin Chew Urea nitrogen/Creatinine [Mass ratio] 21.5 mg/mg Normal [facility] Comment on above: Performed By: #### B MP #### [facility] [address] [place] [address] Dr. Gin Chew SYMPTOMATIC COVID-19 ANTIGEN on 08-17-2022 EUA Statement SEE BELOW Normal [facility] Comment on above: Result Comment: This [...] sooner. Performed By: #### A 1C #### [facility] [address] [place] [address] Dr. Gin Chew SARS-CoV-2 (COVID-19) RNA ARIADNA+probe Ql (Unsp spec) Negative Normal NEGATIVE [facility] Comment on above: Performed By: #### A 1C #### [facility] [address] [place] [address] Dr. Gin Chew CBC AUTO DIFFon 07-10-2022 BASO # 0.1 103/ul Normal 0.0-0.1 [facility] Comment on above: Performed By: #### B MP #### [facility] [address] [place] [address] Dr. Gin Chew Basophils/100 WBC (Bld) 1.0 % Normal 0.2-2.0 [facility] Comment on above: Performed By: #### B MP #### [facility] [address] [place] [address] Dr. Gin Chew EO # 0.5 103/ul Normal 0.0-0.7 [facility] Comment on above: Performed By: #### B MP #### [facility] [address] [place] [address] Dr. Gin Chew Eosinophils/100 WBC (Bld) 7.1 % Critically high 0.9-7.0 [facility] Comment on above: Performed By: #### B MP #### [facility] [address] [place] [address] Dr. Gin Chew Erythrocyte distribution width (RBC) [Ratio] 12.3 % Normal 11.0-15.0 [facility] Comment on above: Performed By: #### B MP #### [facility] [address] [place] [address] Dr. Gin Chew Hematocrit (Bld) [Volume fraction] 39.6 % Normal 36.0-48.0 [facility] Comment on above: Performed By: #### B MP #### [facility] [address] [place] [address] Dr. Gin Chew Hemoglobin (Bld) [Mass/Vol] 13.5 g/dL Normal 12.0-16.0 [facility] Comment on above: Performed By: #### B MP #### [facility] [address] [place] [address] Dr. Gin Chew IG # 0.03 10e3/ul Normal 0.00-0.03 [facility] Comment on above: Performed By: #### B MP #### [facility] [address] [place] [address] Dr. Gin Chew IG % 0.4 % Normal 0.0-0.5 [facility] Comment on above: Performed By: #### B MP #### [facility] [address] [place] [address] Dr. Gin Chew LYMPH # 2.4 103/ul Normal 1.2-3.8 [facility] Comment on above: Performed By: #### B MP #### [facility] [address] [place] [address] Dr. Gin Chew Lymphocytes/100 WBC (Bld) 33.7 % Normal 20.5-60.0 [facility] Comment on above: Performed By: #### B MP #### [facility] [address] [place] [address] Dr. Gin Chew MANUAL DIFF REQ NO Normal [facility] Comment on above: Performed By: #### B MP #### [facility] [address] [place] [address] Dr. Gin Chew MCH (RBC) [Entitic mass] 30.8 pg Normal 26.7-34.0 [facility] Comment on above: Performed By: #### B MP #### [facility] [address] [place] [address] Dr. Gin Chew MCHC (RBC) [Mass/Vol] 34.1 g/dL Normal 29.9-35.2 [facility] Comment on above: Performed By: #### B MP #### [facility] [address] [place] [address] Dr. Gin Chew MCV (RBC) [Entitic vol] 90.2 fL Normal 81.0-99.0 [facility] Comment on above: Performed By: #### B MP #### [facility] [address] [place] [address] Dr. Gin Chew MONO # 0.5 103/ul Normal 0.3-0.8 [facility] Comment on above: Performed By: #### B MP #### [facility] [address] [place] [address] Dr. Gin Chew Monocytes/100 WBC (Bld) 6.7 % Normal 1.7-12.0 [facility] Comment on above: Performed By: #### B MP #### [facility] [address] [place] [address] Dr. Gin Chew NEUT # 3.6 103/ul Normal 1.4-6.5 [facility] Comment on above: Performed By: #### B MP #### [facility] [address] [place] [address] Dr. Gin Chew Neutrophils/100 WBC (Bld) 51.1 % Normal 43.0-75.0 [facility] Comment on above: Performed By: #### B MP #### [facility] [address] [place] [address] Dr. Gin Chew Platelet mean volume (Bld) [Entitic vol] 9.6 fL Normal 9.5-13.5 [facility] Comment on above: Performed By: #### B MP #### [facility] [address] [place] [address] Dr. Gin Chew PLT 337 103/ul Normal 150-450 [facility] Comment on above: Performed By: #### B MP #### [facility] [address] [place] [address] Dr. Gin Chew RBC 4.39 106/ul Normal 4.20-5.40 [facility] Comment on above: Performed By: #### B MP #### [facility] [address] [place] [address] Dr. Gin Chew WBC 7.0 103/ul Normal 4.0-11.0 [facility] Comment on above: Performed By: #### B MP #### [facility] [address] [place] [address] Dr. Gin Chew CULTURE URINEon 07-10-2022 CULTURE URINE Culture Observations : MODERATE GROWTH OF MIXED GENITAL ELOINA. NO POTENTIAL PATHOGENS SEEN. Normal [facility] Comment on above: Performed By: #### A 1C #### [facility] [address] [place] [address] Dr. Gin Chew FREE T3on 07-10-2022 FREE T3 2.10 pg/mlL Critically low 2.18-3.98 [facility] Comment on above: Performed By: #### F T3, CMP, LIPID, TSH #### [facility] [address] [place] [address] Dr. Gin Chew FREE T4on 07-10-2022 Free T4 [Mass/Vol] 1.56 ng/dL Critically high 0.76-1.46 [facility] Comment on above: Performed By: #### F T4, VITAD #### [facility] [address] [place] [address] Dr. Gin Chew GLYCOHEMOGLOBIN A1Con 2022 ADA RECOMMENDATION SEE BELOW Normal [facility] Comment on above: Result Comment: ADA RECOMMENDED LIMIT 4.0 - 6.0 ADA THERAPEUTIC TARGET < 7.0 ACTION SUGGESTED > 7.0 Performed By: #### A 1C #### [facility] [address] [place] [address] Dr. Gin Chew Glucose [Mass/Vol] 134 mg/dL Normal [facility] Comment on above: Performed By: #### A 1C #### [facility] [address] [place] [address] Dr. Gin Chew HbA1c (Bld) [Mass fraction] 6.3 % Critically high 4.5-6.2 [facility] Comment on above: Performed By: #### A 1C #### [facility] [address] [place] [address] Dr. Gin Chew LIPID PROFILEon 07-10-2022 CHOL-HDL RATIO NORM SEE BELOW Normal [facility] Comment on above: Result Comment: 3.3 - 4.4 LOW RISK 4.4 - 7.1 AVERAGE RISK 7.1 - 11.0 MODERATE RISK >11.0 HIGH RISK Performed By: #### F T3, CMP, LIPID, TSH #### [facility] [address] [address] [address] Gin Chew Cholesterol [Mass/Vol] 190 mg/dL Normal <=200 [facility] Comment on above: Performed By: #### F T3, CMP, LIPID, TSH #### [facility] [address] [address] [address] Gin Chew Cholesterol in HDL [Mass/Vol] 76 mg/dL Critically high 40-60 [facility] Comment on above: Performed By: #### F T3, CMP, LIPID, TSH #### [facility] [address] [address] [address] Gin Chew Cholesterol in LDL [Mass/Vol] 98.4 mg/dL Normal [facility] Comment on above: Performed By: #### F T3, CMP, LIPID, TSH #### [facility] [address] [address] [address] Gin Chew Cholesterol.total/Cho lesterol in HDL [Mass ratio] 2.5 {ratio} Normal [facility] Comment on above: Performed By: #### F T3, CMP, LIPID, TSH #### [facility] [address] [address] [address] Gin Chew HDL NORMAL > or = 60 mg/dl - LO W CARDIOVASCULAR RISK <40 mg/dl - HIGH CARDIOVASCULAR RISK Normal [facility] Comment on above: Performed By: #### F T3, CMP, LIPID, TSH #### [facility] [address] [address] [address] Gin Chew LDL CALC NORMAL SEE BELOW Normal [facility] Comment on above: Result Comment: <100 mg/dl OPTIMAL 100 - 129 mg/dl NEAR OR ABOVE OPTIMAL 130 - 159 mg/dl BORDERLINE HIGH 160 - 189 mg/dl HIGH >190 mg/dl VERY HIGH Performed By: #### F T3, CMP, LIPID, TSH #### [facility] [address] [address] [address] Gin Chew Triglyceride [Mass/Vol] 78 mg/dL Normal <=150 [facility] Comment on above: Performed By: #### F T3, CMP, LIPID, TSH #### [facility] [address] [address] [address] Gin Chew VLDL CALC 15.6 mg/dL Normal [facility] Comment on above: Performed By: #### F T3, CMP, LIPID, TSH #### [facility] [address] [address] [address] Gin Chew MICROALBUMIN, RAND URon 06-22 mALB 1.7 mg/L Normal <=30.0 [facility] Comment on above: Performed By: #### A 1C #### [facility] [address] [place] [address] Dr. Gin Chew PROF 14(COMP METB)on 023 Albumin [Mass/Vol] 4.0 g/dL Normal 3.4-5.0 [facility] Comment on above: Performed By: #### F T3, CMP, LIPID, TSH #### [facility] [address] [place] [address] Dr. Gin Chew Albumin/Globulin [Mass ratio] 1.2 {ratio} Normal [facility] Comment on above: Performed By: #### F T3, CMP, LIPID, TSH #### [facility] [address] [place] [address] Dr. Gin Chew ALP [Catalytic activity/Vol] 67 U/L Normal 46-116 [facility] Comment on above: Performed By: #### F T3, CMP, LIPID, TSH #### [facility] [address] [place] [address] Dr. Gin Chew ALT [Catalytic activity/Vol] 25 U/L Normal 14-59 [facility] Comment on above: Performed By: #### F T3, CMP, LIPID, TSH #### [facility] [address] [place] [address] Dr. Gin Chew Anion gap [Moles/Vol] 12.2 mmol/L Normal [facility] Comment on above: Performed By: #### F T3, CMP, LIPID, TSH #### [facility] [address] [place] [address] Dr. Gin Chew AST [Catalytic activity/Vol] 20 U/L Normal 15-37 [facility] Comment on above: Performed By: #### F T3, CMP, LIPID, TSH #### [facility] [address] [address] [address] iGn Chew Bilirubin [Mass/Vol] 0.4 mg/dL Normal 0.2-1.0 [facility] Comment on above: Performed By: #### F T3, CMP, LIPID, TSH #### [facility] [address] [address] [address] Gin Chew Calcium [Mass/Vol] 9.6 mg/dL Normal 8.5-10.1 [facility] Comment on above: Performed By: #### F T3, CMP, LIPID, TSH #### [facility] [address] [place] [address] Dr. Gin Chew Chloride [Moles/Vol] 103 mmol/L Normal 98-107 [facility] Comment on above: Performed By: #### F T3, CMP, LIPID, TSH #### [facility] [address] [place] [address] Dr. Gin Chew CO2 [Moles/Vol] 28.1 mmol/L Normal 21.0-32.0 [facility] Comment on above: Performed By: #### F T3, CMP, LIPID, TSH #### [facility] [address] [place] [address] Dr. Gin Chew Creatinine [Mass/Vol] 0.64 mg/dL Normal 0.55-1.02 [facility] Comment on above: Performed By: #### F T3, CMP, LIPID, TSH #### [facility] [address] [place] [address] Dr. Gin Chew EGFR-AF BULGARIAN >60 Normal >=60 [facility] Comment on above: Performed By: #### F T3, CMP, LIPID, TSH #### [facility] [address] [place] [address] Dr. Gin Chew EGFR-NON AF BULGARIAN >60 Normal >=60 [facility] Comment on above: Performed By: #### F T3, CMP, LIPID, TSH #### [facility] [address] [address] [address] Gin Chew Globulin (S) [Mass/Vol] 3.3 g/dL Normal [facility] Comment on above: Performed By: #### F T3, CMP, LIPID, TSH #### [facility] [address] [address] [address] Gin Chew Glucose [Mass/Vol] 98 mg/dL Normal 74-106 [facility] Comment on above: Performed By: #### F T3, CMP, LIPID, TSH #### [facility] [address] [address] [address] Gin Chew Potassium [Moles/Vol] 4.3 mmol/L Normal 3.5-5.1 [facility] Comment on above: Performed By: #### F T3, CMP, LIPID, TSH #### [facility] [address] [place] [address] Dr. Gin Chew Protein [Mass/Vol] 7.3 g/dL Normal 6.4-8.2 [facility] Comment on above: Performed By: #### F T3, CMP, LIPID, TSH #### [facility] [address] [place] [address] Dr. Gin Chew Sodium [Moles/Vol] 139 mmol/L Normal 136-145 [facility] Comment on above: Performed By: #### F T3, CMP, LIPID, TSH #### [facility] [address] [address] [address] Gin Chew Urea nitrogen [Mass/Vol] 21.0 mg/dL Critically high 7.0-18.0 [facility] Comment on above: Performed By: #### F T3, CMP, LIPID, TSH #### [facility] [address] [place] [address] Dr. Gin Chew Urea nitrogen/Creatinine [Mass ratio] 32.8 mg/mg Normal [facility] Comment on above: Performed By: #### F T3, CMP, LIPID, TSH #### [facility] [address] [place] [address] Dr. Gin Chew TSHon 07-10-2022 TSH 2.200 uIU/mL Normal 0.358-3.740 [facility] Comment on above: Performed By: #### F T3, CMP, LIPID, TSH #### [facility] [address] [place] [address] Dr. Gin Chew UA RANDOM W/MICROSCOPICon BACTERIA NONE SEEN Normal NONE SEEN [facility] Comment on above: Performed By: #### F T3, CMP, LIPID, TSH #### [facility] [address] [place] [address] Dr. Gin Chew Bilirubin Ql (U) Negative Normal NEGATIVE [facility] Comment on above: Performed By: #### F T3, CMP, LIPID, TSH #### [facility] [address] [place] [address] Dr. Gin Chew CAST NONE SEEN Normal NONE SEEN [facility] Comment on above: Performed By: #### F T3, CMP, LIPID, TSH #### [facility] [address] [place] [address] Dr. Gin Chew Clarity (U) CLEAR Normal CLEAR [facility] Comment on above: Performed By: #### F T3, CMP, LIPID, TSH #### [facility] [address] [place] [address] Dr. Gin Chew Color (U) LT. YELLOW Normal YELLOW [facility] Comment on above: Performed By: #### F T3, CMP, LIPID, TSH #### [facility] [address] [place] [address] Dr. Gin Chew Crystals LM Nom (Urine sed) NONE SEEN Normal NONE SEEN [facility] Comment on above: Performed By: #### F T3, CMP, LIPID, TSH #### [facility] [address] [place] [address] Dr. Gin Chew Epithelial cells LM Ql (Urine sed) FEW Abnormal NONE SEEN /RARE [facility] Comment on above: Performed By: #### F T3, CMP, LIPID, TSH #### [facility] [address] [place] [address] Dr. Gin Chew Glucose Ql (U) Negative Normal NEGATIVE [facility] Comment on above: Performed By: #### F T3, CMP, LIPID, TSH #### [facility] [address] [address] [address] Gin Chew Hemoglobin Ql (U) Negative Normal NEGATIVE [facility] Comment on above: Performed By: #### F T3, CMP, LIPID, TSH #### [facility] [address] [address] [address] Gin Chew Ketones Ql (U) Negative Normal NEGATIVE [facility] Comment on above: Performed By: #### F T3, CMP, LIPID, TSH #### [facility] [address] [address] [address] Gin Chew LEUKOCYTES Negative Normal NEGATIVE [facility] Comment on above: Performed By: #### F T3, CMP, LIPID, TSH #### [facility] [address] [place] [address] Dr. Gin Chew MUCOUS NONE SEEN Normal NONE SEEN [facility] Comment on above: Performed By: #### F T3, CMP, LIPID, TSH #### [facility] [address] [address] [address] Gin Chew Nitrite Ql (U) Negative Normal NEGATIVE [facility] Comment on above: Performed By: #### F T3, CMP, LIPID, TSH #### [facility] [address] [address] [address] Gin Chew pH (U) 5.5 [pH] Normal 5-9 [facility] Comment on above: Performed By: #### F T3, CMP, LIPID, TSH #### [facility] [address] [address] [address] Gin Chew RBC NONE SEEN Abnormal 0-2 [facility] Comment on above: Performed By: #### F T3, CMP, LIPID, TSH #### [facility] [address] [address] [address] Gin Chew SPEC GRAVITY 1.025 Normal 1.005-<=1.025 [facility] Comment on above: Performed By: #### F T3, CMP, LIPID, TSH #### [facility] [address] [place] [address] Dr. Gin Chew UA PROTEIN Negative Normal NEGATIVE/ TRACE [facility] Comment on above: Performed By: #### F T3, CMP, LIPID, TSH #### [facility] [address] [place] [address] Dr. Gin Chew Urobilinogen Qn (U) 0.2 {David'U}/dL Normal 0.2 - 1. 0 [facility] Comment on above: Performed By: #### F T3, CMP, LIPID, TSH #### [facility] [address] [place] [address] Dr. Gin Chew WBC NONE SEEN Normal NONE SEEN [facility] Comment on above: Performed By: #### F T3, CMP, LIPID, TSH #### [facility] [address] [place] [address] Dr. Gin Chew VITAMIN D 25 OHon 07-10-2022 VIT D 25-OH 30.1 ng/mL Normal [facility] Comment on above: Performed By: #### F T4, VITAD #### [facility] [address] [place] [address] Dr. Gin Chew VIT D RANGES SEE BELOW Normal [facility] Comment on above: Result Comment: <20 ng/mL Vit D deficient 20 - <30 ng/mL Vit D insufficient 30 - 100 ng/mL Vit D sufficient >100 ng/mL Potential Toxicity Performed By: #### F T4, VITAD #### [facility] [address] [place] [address] Dr. Gin Chew FREE T3on 04-05-2022 FREE T3 2.83 pg/mlL Normal 2.18-3.98 [facility] Comment on above: Performed By: #### B MP #### [facility] [address] [place] [address] Dr. Gin Chew FREE T4on 04-05-2022 Free T4 [Mass/Vol] 1.74 ng/dL Critically high 0.76-1.46 T [facility] Comment on above: Performed By: #### F T4 #### [facility] [address] [place] [address] Dr. Gin Chew TSHon 04-05-2022 TSH 0.235 uIU/mL Critically low 0.358-3.740 [facility] Comment on above: Performed By: #### B #### [facility] [address] [place] [address] [id number] [address] Gin Chew XR CHEST 2 Von [...] by: JEFF PATHAK Date: 2021-11-29 21:03 Normal [facility]13-[facility]21 CNPN Telephone (ENDOSO) CANELO PATHAK ([id number]) 1965 F Date Time Provider Department 10/13/21 ANILA JIMENEZO During your visit today, we recorded the [...] Date Reviewed: 10/13/2021 Reviewed by: Anila Jimenez APRN.[employer] MANAGER - Fully Assessed Reason for Visit: Appointment [...] daily. - mometasone furoate(NASONEX 50 MCG/ACTUATION SPRAY) [place] twice in each nostril once daily. - [...] Status:Closed by ANILA JIMENEZ on 10/13/21 Normal [facility] CBC W Auto Differential pane l (Bld)on 10-07-2021 Basophils (Bld) [#/Vol] 0.07 10*3/uL Normal <0.11 [facility] Comment on above: Order Comment: Speci men Type: BLOOD SPECIMENOrdering Facility: [facility] Address: [address] [place] [address] Performed By: #### C MP, HBA1C, FREET3, FT4, TSH #### [place] [address] Basophils/100 WBC (Bld) 0.7 % Normal [facility] Comment on above: Order Comment: Speci men Type: BLOOD SPECIMENOrdering Facility: [facility] Address: [address] [place] [address] Performed By: #### C MP, HBA1C, FREET3, FT4, TSH #### [address] [place] [address] Differential cell count method Nom (Bld) Auto Normal [facility] Comment on above: Order Comment: Speci men Type: BLOOD SPECIMENOrdering Facility: [facility] Address: [address] [place] [address] Performed By: #### C MP, HBA1C, FREET3, FT4, TSH #### [place] [address] Eosinophils (Bld) [#/Vol] 0.29 10*3/uL Normal <0.46 [facility] Comment on above: Order Comment: Speci men Type: BLOOD SPECIMENOrdering Facility: [facility] Address: [address] [place] [address] Performed By: #### C MP, HBA1C, FREET3, FT4, TSH #### [place] [phone] Eosinophils/100 WBC (Bld) 3.0 % Normal [facility] Comment on above: Order Comment: Speci men Type: BLOOD SPECIMENOrdering Facility: [facility] Address: [address] [address] Performed By: #### C MP, HBA1C, FREET3, FT4, TSH #### [place] [phone] Erythrocyte distribution width (RBC) [Ratio] 12.3 % Normal 11.5-15.0 [facility] Comment on above: Order Comment: Speci men Type: BLOOD SPECIMENOrdering Facility: [facility] Address: [address] [place] [address] Performed By: #### C MP, HBA1C, FREET3, FT4, TSH #### [place] [phone] Hematocrit (Bld) [Volume fraction] 43.4 % Normal 36.0-46.0 [facility] Comment on above: Order Comment: Speci men Type: BLOOD SPECIMENOrdering Facility: [facility] Address: [address] [place] [address] Performed By: #### C MP, HBA1C, FREET3, FT4, TSH #### [place] [phone] Hemoglobin (Bld) [Mass/Vol] 14.5 g/dL Normal 11.5-15.5 [facility] Comment on above: Order Comment: Speci men Type: BLOOD SPECIMENOrdering Facility: [facility] Address: [address] [place] [address] Performed By: #### C MP, HBA1C, FREET3, FT4, TSH #### [place] [phone] IMMATURE GRAN % 0.4 % Normal [facility] Comment on above: Order Comment: Speci men Type: BLOOD SPECIMENOrdering Facility: [facility] Address: [address] [place] [address] Performed By: #### C MP, HBA1C, FREET3, FT4, TSH #### [place] [address] IMMATURE GRAN ABS 0.04 k/uL Normal <0.10 [facility] Comment on above: Order Comment: Speci men Type: BLOOD SPECIMENOrdering Facility: [facility] Address: [address] [place] [address] Performed By: #### C MP, HBA1C, FREET3, FT4, TSH #### [place] [address] Lymphocytes (Bld) [#/Vol] 2.21 10*3/uL Normal 1.00-4.00 [facility] Comment on above: Order Comment: Speci men Type: BLOOD SPECIMENOrdering Facility: [facility] Address: [address] [place] [address] Performed By: #### C MP, HBA1C, FREET3, FT4, TSH #### [place] [address] Lymphocytes/100 WBC (Bld) 22.6 % Normal [facility] Comment on above: Order Comment: Speci men Type: BLOOD SPECIMENOrdering Facility: [facility] Address: [address] [place] [address] Performed By: #### C MP, HBA1C, FREET3, FT4, TSH #### [place] [address] MCH (RBC) [Entitic mass] 30.7 pg Normal 26.0-34.0 [facility] Comment on above: Order Comment: Speci men Type: BLOOD SPECIMENOrdering Facility: [facility] Address: [address] [place] [address] Performed By: #### C MP, HBA1C, FREET3, FT4, TSH #### [place] [address] MCHC (RBC) [Mass/Vol] 33.4 g/dL Normal 30.5-36.0 [facility] Comment on above: Order Comment: Speci men Type: BLOOD SPECIMENOrdering Facility: [facility] Address: [address] [place], [place] [address] Performed By: #### C MP, HBA1C, FREET3, FT4, TSH #### [place] [address] MCV (RBC) [Entitic vol] 91.9 fL Normal 80.0-100.0 [facility] Comment on above: Order Comment: Speci men Type: BLOOD SPECIMENOrdering Facility: [facility] Address: [address] [place], [place] [address] Performed By: #### C MP, HBA1C, FREET3, FT4, TSH #### [place] [address] Monocytes (Bld) [#/Vol] 0.60 10*3/uL Normal <0.87 [facility] Comment on above: Order Comment: Speci men Type: BLOOD SPECIMENOrdering Facility: [facility] Address: [address] [place] [address] Performed By: #### C MP, HBA1C, FREET3, FT4, TSH #### [place] [address] Monocytes/100 WBC (Bld) 6.1 % Normal [facility] Comment on above: Order Comment: Speci men Type: BLOOD SPECIMENOrdering Facility: [facility] Address: [address] [place], [place] [address] Performed By: #### C MP, HBA1C, FREET3, FT4, TSH #### [place] [address] Neutrophils (Bld) [#/Vol] 6.57 10*3/uL Normal 1.45-7.50 [facility] Comment on above: Order Comment: Speci men Type: BLOOD SPECIMENOrdering Facility: [facility] Address: [address] [place], [place] [id number] Performed By: #### C MP, HBA1C, FREET3, FT4, TSH #### [place] [address] Neutrophils/100 WBC (Bld) 67.2 % Normal [facility] Comment on above: Order Comment: Speci men Type: BLOOD SPECIMENOrdering Facility: [facility] Address: [address] [place] [address] Performed By: #### C MP, HBA1C, FREET3, FT4, TSH #### [place] [address] Nucleated RBC (Bld) [#/Vol] 10*3/uL Normal <0.01 [facility] Comment on above: Order Comment: Speci men Type: BLOOD SPECIMENOrdering Facility: [facility] Address: [address] [place] [address] Performed By: #### C MP, HBA1C, FREET3, FT4, TSH #### [place] [address] Nucleated RBC/100 WBC (Bld) [Ratio] 0.0 /100 WBC Normal [facility] Comment on above: Order Comment: Speci men Type: BLOOD SPECIMENOrdering Facility: [facility] Address: [address] [place] [address] Performed By: #### C MP, HBA1C, FREET3, FT4, TSH #### [place] [address] Platelet mean volume (Bld) [Entitic vol] 10.4 fL Normal 9.0-12.7 [facility] Comment on above: Order Comment: Speci men Type: BLOOD SPECIMENOrdering Facility: [facility] Address: [address] [place] [address] Performed By: #### C MP, HBA1C, FREET3, FT4, TSH #### [place] [address] Platelets (Bld) [#/Vol] 371 10*3/uL Normal 150-400 [facility] Comment on above: Order Comment: Speci men Type: BLOOD SPECIMENOrdering Facility: [facility] Address: [address] [place] [address] Performed By: #### C MP, HBA1C, FREET3, FT4, TSH #### [place] [address] RBC (Bld) [#/Vol] 4.72 10*6/uL Normal 3.90-5.20 [facility] Comment on above: Order Comment: Speci men Type: BLOOD SPECIMENOrdering Facility: [facility] Address: [address] [place] [address] Performed By: #### C MP, HBA1C, FREET3, FT4, TSH #### [place] [phone] WBC (Bld) [#/Vol] 9.78 10*3/uL Normal 3.70-11.00 [facility] Comment on above: Order Comment: Speci men Type: BLOOD SPECIMENOrdering Facility: [facility] Address: [address] [place] [address] Performed By: #### C MP, HBA1C, FREET3, FT4, TSH #### [facility] [address] [place] [address] Abs Immature Gran 0.04 k/uL <0.10 k/uL [facility] Basophils (Bld) [#/Vol] 0.07 10*3/uL <0.11 k/uL [facility] Basophils/100 WBC (Bld) 0.7 % [facility] Differential cell count method Nom (Bld) Auto [facility] Eosinophils (Bld) [#/Vol] 0.29 10*3/uL <0.46 k/uL [facility] Eosinophils/100 WBC (Bld) 3.0 % [facility] Erythrocyte distribution width (RBC) [Ratio] 12.3 % 11.5 - 15.0 % [facility] Hematocrit (Bld) [Volume fraction] 43.4 % 36.0 - 46.0 % [facility] Hemoglobin (Bld) [Mass/Vol] 14.5 g/dL 11.5 - 15.5 g/dL [facility] Immature Gran % 0.4 % [facility] Lymphocytes (Bld) [#/Vol] 2.21 10*3/uL 1.00 - 4.00 k/uL [facility] Lymphocytes/100 WBC (Bld) 22.6 % [facility] MCH (RBC) [Entitic mass] 30.7 pg 26.0 - 34.0 pg [facility] MCHC (RBC) [Mass/Vol] 33.4 g/dL 30.5 - 36.0 g/dL [facility] MCV (RBC) [Entitic vol] 91.9 fL 80.0 - 100.0 fL [facility] Monocytes (Bld) [#/Vol] 0.60 10*3/uL <0.87 k/uL [facility] Monocytes/100 WBC (Bld) 6.1 % [facility] Neutrophils (Bld) [#/Vol] 6.57 10*3/uL 1.45 - 7.50 k/uL [facility] Neutrophils/100 WBC (Bld) 67.2 % [facility] Nucleated RBC (Bld) [#/Vol] 10*3/uL <0.01 k/uL [facility] Nucleated RBC/100 WBC (Bld) [Ratio] 0.0 /100 WBC [facility] Platelet mean volume (Bld) [Entitic vol] 10.4 fL 9.0 - 12.7 fL [facility] Platelets (Bld) [#/Vol] 371 10*3/uL 150 - 400 k/uL [facility] RBC (Bld) [#/Vol] 4.72 10*6/uL 3.90 - 5.2 0 m/uL [facility] WBC (Bld) [#/Vol] 9.78 10*3/uL 3.70 - 11. 00 k/uL [facility] CNOVon 10-07-2021 CNOV Office Visit (RHEUMN ) CANELO PATHAK ([id number]) 1965 F Date Time Provider Department 10/07/21 [...] mcg (5,000 unit) cap - Vitamin D [place] ([employer]) Take 1 capsule by mouth daily with food. - montelukast (SINGULAIR) 10 mg tablet Take 10 mg by mouth daily at bedtime. - MULTIVIT-MINERALS/GEOVANI ALEXSANDRA GLUC (CENTRAM-CARE ORAL) Take by mouth twice daily. - esomeprazole mag trihydrate(NEXIUM 40 MG CAP) Take one(1) capsule daily. - mometasone furoate(NASONEX 50 MCG/ACTUATION SPRAY) [place] twice in each nostril once daily. - [...] [F41.1] Order(s):CBC + DIFF [SQCBCDIF] Order #: [id number] FUTURE PROTEIN ELECTROPHORESIS SERUM W/INTERP [SQSEPG] Order #: [id number] FUTURE venlafaxine ER (EFFEXOR XR) 37.5 mg 24 hr capsuletake one a day, if tolerated after two weeks increase to twoDisp: 60 capsuleRfl: 3 CO (more content not included)... Normal [facility] Comprehensive metabolic 2000 panelon 10-07-2021 Albumin [Mass/Vol] 4.8 g/dL Normal 3.9-4.9 [facility] Comment on above: Order Comment: Speci men Type: BLOOD SPECIMENOrdering Facility: [facility] Address: [address] [place] [address] Performed By: #### C MP, HBA1C, FREET3, FT4, TSH #### [place] [address] ALP [Catalytic activity/Vol] 72 U/L Normal 34-123 [facility] Comment on above: Order Comment: Speci men Type: BLOOD SPECIMENOrdering Facility: [facility] Address: [address] [place] [address] Performed By: #### C MP, HBA1C, FREET3, FT4, TSH #### [place] [address] ALT [Catalytic activity/Vol] 24 U/L Normal 7-38 [facility] Comment on above: Order Comment: Speci men Type: BLOOD SPECIMENOrdering Facility: [facility] Address: [address] [place] [address] Performed By: #### C MP, HBA1C, FREET3, FT4, TSH #### [place] [address] Anion gap [Moles/Vol] 11 mmol/L Normal 9-18 [facility] Comment on above: Order Comment: Speci men Type: BLOOD SPECIMENOrdering Facility: [facility] Address: [address] [place] [address] Performed By: #### C MP, HBA1C, FREET3, FT4, TSH #### [place] [address] AST [Catalytic activity/Vol] 17 U/L Normal 13-35 [facility] Comment on above: Order Comment: Speci men Type: BLOOD SPECIMENOrdering Facility: [facility] Address: [address] [place] [address] Performed By: #### C MP, HBA1C, FREET3, FT4, TSH #### [place] [address] Bilirubin [Mass/Vol] 0.5 mg/dL Normal 0.2-1.3 [facility] Comment on above: Order Comment: Speci men Type: BLOOD SPECIMENOrdering Facility: [facility] Address: [address] [place], [place] [address] Performed By: #### C MP, HBA1C, FREET3, FT4, TSH #### [place] [address] Calcium [Mass/Vol] 10.3 mg/dL High 8.5-10.2 [facility] Comment on above: Order Comment: Speci men Type: BLOOD SPECIMENOrdering Facility: [facility] Address: [address] [place], [place] [address] Performed By: #### C MP, HBA1C, FREET3, FT4, TSH #### [place] [address] Chloride [Moles/Vol] 100 mmol/L Normal 97-105 [facility] Comment on above: Order Comment: Speci men Type: BLOOD SPECIMENOrdering Facility: [facility] Address: [address] [place] [address] Performed By: #### C MP, HBA1C, FREET3, FT4, TSH #### [place] [address] CO2 [Moles/Vol] 28 mmol/L Normal 22-30 [facility] Comment on above: Order Comment: Speci men Type: BLOOD SPECIMENOrdering Facility: [facility] Address: [address] [place] [address] Performed By: #### C MP, HBA1C, FREET3, FT4, TSH #### [place] [phone] Creatinine [Mass/Vol] 0.70 mg/dL Normal 0.58-0.96 [facility] Comment on above: Order Comment: Speci men Type: BLOOD SPECIMENOrdering Facility: [facility] Address: [address] [place] [address] Performed By: #### C MP, HBA1C, FREET3, FT4, TSH #### [place] [phone] ESTIMATED GLOMERULAR FILTRATION RATE 103 mL/min/1.73m??? Normal >=60 [facility] Comment on above: Order Comment: Speci men Type: BLOOD SPECIMENOrdering Facility: [facility] Address: [address] [place] [address] Result Comment: [place] mated Glomerular Filtration [...] C MP, HBA1C, FREET3, FT4, TSH #### [place] [address] Glucose [Mass/Vol] 124 mg/dL High 74-99 [facility] Comment on above: Order Comment: Speci men Type: BLOOD SPECIMENOrdering Facility: [facility] Address: [address] [place], [place] [address] Result Comment: The [place] Diabetes Association (ADA) provides guidance for cutoff [...] Standards of Medical Care in Diabetes 2016, [place] [employer] Association. Diabetes Care. 2016.39(Suppl 1). Performed By: #### C MP, HBA1C, FREET3, FT4, TSH #### [place] [address] Potassium [Moles/Vol] 4.1 mmol/L Normal 3.7-5.1 [facility] Comment on above: Order Comment: Pancho hayes Type: BLOOD SPECIMENOrdering Facility: [facility] Address: [address] [place], [place] [address] Performed By: #### C MP, HBA1C, FREET3, FT4, TSH #### [place] [address] Protein [Mass/Vol] 7.3 g/dL Normal 6.3-8.0 [facility] Comment on above: Order Comment: Pancho men Type: BLOOD SPECIMENOrdering Facility: [facility] Address: [address] [place], [place] [address] Performed By: #### C MP, HBA1C, FREET3, FT4, TSH #### [place] [address] Sodium [Moles/Vol] 139 mmol/L Normal 136-144 [facility] Comment on above: Order Comment: Pancho hayes Type: BLOOD SPECIMENOrdering Facility: [facility] Address: [address] [place] [address] Performed By: #### C MP, HBA1C, FREET3, FT4, TSH #### [place] [address] Urea nitrogen [Mass/Vol] 18 mg/dL Normal 7-21 [facility] Comment on above: Order Comment: Pancho men Type: BLOOD SPECIMENOrdering Facility: [facility] Address: [address] [place] [address] Performed By: #### C MP, HBA1C, FREET3, FT4, TSH #### [place] [address] HGB A1Con 10-07-2021 Average glucose Estimated from glycated hemoglobin (Bld) [Mass/Vol] 160 mg/dL Normal [facility] Comment on above: Order Comment: Pancho hayes Type: BLOOD SPECIMENOrdering Facility: [facility] Address: [address] [place] [address] Result Comment: eAG: (Estimated average glucose) is a calculated value from HgbA1c and is termite control service representative of the average blood glucose level in the last 2-3 month period. Performed By: #### C MP, HBA1C, FREET3, FT4, TSH #### [place] [address] HbA1c (Bld) [Mass fraction] 7.2 % High 4.3-5.6 [facility] Comment on above: Order Comment: Pancho hayes Type: BLOOD SPECIMENOrdering Facility: [facility] Address: [address] [place], [place] [address] Result Comment: [place] Diabetes Association guidelines indicate that patients with HgbA1c in the range 5.7-6.4% are at increased risk for development of diabetes, and intervention by lifestyle modification may be beneficial. HgbA1c greater or equal to 6.5% is considered diagnostic of diabetes. Performed By: #### C MP, HBA1C, FREET3, FT4, TSH #### [place] [phone] [place] [address] PROTEIN ELECTROPHORESIS SERU M (P)on 10-07-2021 Albumin [Mass/Vol] 4.18 g/dL Normal 3.37-4.23 [facility] Comment on above: Order Comment: Speci men Type: BLOOD SPECIMENOrdering Facility: [facility] Address: [address] [place] [address] Performed By: #### C MP, HBA1C, FREET3, FT4, TSH #### [place] [phone] Alpha 1 globulin Elph [Mass/Vol] 0.24 g/dL Normal 0.18-0.31 [facility] Comment on above: Order Comment: Speci men Type: BLOOD SPECIMENOrdering Facility: [facility] Address: [address] [place] [address] Performed By: #### C MP, HBA1C, FREET3, FT4, TSH #### [place] [phone] Alpha 2 globulin Elph [Mass/Vol] 0.83 g/dL Normal 0.52-0.97 [facility] Comment on above: Order Comment: Speci men Type: BLOOD SPECIMENOrdering Facility: [facility] Address: [address] [place] [address] Performed By: #### C MP, HBA1C, FREET3, FT4, TSH #### [place] [address] Beta globulin Elph [Mass/Vol] 1.21 g/dL Normal 0.84-1.36 [facility] Comment on above: Order Comment: Speci men Type: BLOOD SPECIMENOrdering Facility: [facility] Address: [address] [place] [address] Performed By: #### C MP, HBA1C, FREET3, FT4, TSH #### [place] [address] [place] [address] Gamma globulin Elph (Body fld) [Mass fraction] 0.74 g/dL Normal 0.70-1.44 [facility] Comment on above: Order Comment: Speci men Type: BLOOD SPECIMENOrdering Facility: [facility] Address: [address] [place] [address] Performed By: #### C MP, HBA1C, FREET3, FT4, TSH #### [place] [address] M-PROTEIN LOCATION Normal [facility] Comment on above: Order Comment: Speci men Type: BLOOD SPECIMENOrdering Facility: [facility] Address: [address] [place] [address] Result Comment: Not Applicable. Performed By: #### C MP, HBA1C, FREET3, FT4, TSH #### [place] [address] Protein Fractions [Interp] No definitive M protein is identified on protein electrophoresis. Normal No definitive M protein is identified on protein electrophoresi s. [facility] Comment on above: Order Comment: Speci men Type: BLOOD SPECIMENOrdering Facility: [facility] Address: [address] [place] [address] Performed By: #### C MP, HBA1C, FREET3, FT4, TSH #### [place] [address] Protein.monoclonal Elph [Mass/Vol] 0.00 g/dL Normal <=0.00 [facility] Comment on above: Order Comment: Speci men Type: BLOOD SPECIMENOrdering Facility: [facility] Address: [address] [place] [address] Performed By: #### C MP, HBA1C, FREET3, FT4, TSH #### [place] [address] SPE STAFF REVIEW Reviewed by Ginette Doyle MD [facility] Comment on above: Order Comment: Speci men Type: BLOOD SPECIMENOrdering Facility: [facility] Address: [address] [place], [place] [address] Performed By: #### C MP, HBA1C, FREET3, FT4, TSH #### [place] [address] Prot SerPl-mCncon 10-07-2021 Protein [Mass/Vol] 7.2 g/dL Normal 6.3-8.0 [facility] Comment on above: Order Comment: Speci men Type: BLOOD SPECIMEN [facility] Address: [address] [place] [address] Performed By: #### 2 885-2 #### [facility] CLIA [id number] [address] [place] [address] T3 FREE BLDon 10-07-2021 Free T3 [Mass/Vol] 3.1 pg/mL Normal 2.3-4.1 [facility] Comment on above: Order Comment: Speci men Type: BLOOD SPECIMENOrdering Facility: [facility] Address: [address] [place] [address] Performed By: #### C MP, HBA1C, FREET3, FT4, TSH #### [place] [address] T4 FREE/FREE THYROXon 2021 Free T4 [Mass/Vol] 2.5 ng/dL High 0.9-1.7 [facility] Comment on above: Order Comment: Speci men Type: BLOOD SPECIMENOrdering Facility: [facility] Address: [address] [place] [address] Performed By: #### C MP, HBA1C, FREET3, FT4, TSH #### [place] [address] TSH SerPl-aCncon 10-07-2021 TSH Qn 0.228 m[IU]/L Low 0.270-4.200 [facility] Comment on above: Order Comment: Speci men Type: BLOOD SPECIMENOrdering Facility: [facility] Address: [address] [place] [address] Performed By: #### C MP, HBA1C, FREET3, FT4, TSH #### [facility] [address] [place], [place] [address] CNPNon 10-03-2021 CNPN Telephone (ENDOMN) CANELO PATHAK ([id number]) 1965 F Date Time Provider Department 10/03/21 ASAD ANSARI During your visit today, we recorded the following information about you: Renea Lee Bartolo Ict Sales Assistant 10/03/2021 3:05 PM Addendum Patient called in [...] Fully Assessed Reason for Visit: Lab Orders [0258] Primary Visit Diagnosis:Acquired hypothyroidism [E03.9] Other Visit Diagnosis:Controlled type 2 diabetes mellitus without complication, without long-term current use of insulin (HCC) [E11.9] Order(s):TSH BLD [SQTSH] Order #: [id number] FUTURE T4 FREE/FREE THYROX [SQFT4] Order #: [id number] FUTURE T3 FREE BLD [SQFREET3] Order #: [id number] FUTURE COMP METABOLIC PANEL [SQCMP] Order #: [id number] FUTURE HGB A1C [LTFXD9G] Order #: [id number] FUTURE Prescriptions as of 10/05/2021 - metFORMIN ER (GLUCOPHAGE XR) 500 mg 24 hr tablet Take 2 tablets by mouth twice daily. - levothyroxine (SYNTHROID) 112 mcg tablet Take 2 tablets by mouth once daily. - cyclobenzaprine (FLEXERIL) 10 mg tablet - Cholecalciferol, Vitamin D3, 125 mcg (5,000 unit) cap - Vitamin D [place] ([employer]) Take 1 capsule by mouth daily with food. - montelukast (SINGULAIR) 10 mg tablet Take 10 mg by mouth daily at bedtime. - MULTIVIT-[employer]ER[employer] ALEXSANDRA GLUC (CENTRAM-CARE ORAL) Take by mouth twice daily. - esomeprazole mag trihydrate(NEXIUM 40 MG CAP) Take one(1) capsule daily. - mometasone furoate(NASONEX 50 MCG/ACTUATION SPRAY) [place] twice in each nostril once daily. - [...] 12/16/2018 Encounter Status:Closed by ASAD ANSARI on 5/18/22 Normal [facility] CARDIAC ANG ADMITon 022 CK [Catalytic activity/Vol] 34 U/L Normal 26-192 [facility] Comment on above: Performed By: #### F T3, CMP, LIPID, TSH #### [facility] [address] [address] [address] Gin Chew CK.MB [Mass/Vol] 0.66 ng/mL Normal <=3.60 [facility] Comment on above: Performed By: #### F T3, CMP, LIPID, TSH #### [facility] [address] [address] [address] Gin Chew HSTROP 6.4 pg/mL Normal 4.0-51.3 [facility] Comment on above: Result Comment: CUT- OFF POINTS HAVE BEEN ESTABLISHED BASED ON THE FOURTH UNIVERSAL DEFINITIONS OF MYOCARDIAL INFARCTION. THE UPPER REFERENCE LIMIT (URL) OF TROPONIN, DEFINED THE 99TH PERCENTILE OF cTnI DISTRIBUTION IN A REFERENCE POPULATION, HAS BEEN CONFIRMED THE DECISION THRESHOLD FOR MA DIAGNOSIS. Performed By: #### F T3, CMP, LIPID, TSH #### [facility] [address] [address] [address] Gin Chew SIXTO 28 ng/mL Normal 9-82 [facility] Comment on above: Performed By: #### F T3, CMP, LIPID, TSH #### [facility] [address] [address] [address] Gin Chew CBC AUTO DIFFon 09-28-2021 BASO # 0.1 103/ul Normal 0.0-0.1 [facility] Comment on above: Performed By: #### A 1C #### [facility] [address] [place] [address] Dr. Gin Chew Basophils/100 WBC (Bld) 0.7 % Normal 0.2-2.0 [facility] Comment on above: Performed By: #### A 1C #### [facility] [address] [place] [address] Dr. Gin Chew EO # 0.5 103/ul Normal 0.0-0.7 [facility] Comment on above: Performed By: #### A 1C #### [facility] [facility] [address] [address] [address] Gin Chew Eosinophils/100 WBC (Bld) 4.4 % Normal 0.9-7.0 [facility] Comment on above: Performed By: #### A 1C #### [facility] [address] [place] [address] Dr. Gin Chew Erythrocyte distribution width (RBC) [Ratio] 12.7 % Normal 11.0-15.0 [facility] Comment on above: Performed By: #### A 1C #### [facility] [address] [place] [address] Dr. Gin Chew Hematocrit (Bld) [Volume fraction] 42.2 % Normal 36.0-48.0 [facility] Comment on above: Performed By: #### A 1C #### [facility] [address] [place] [address] Dr. Gin Chew Hemoglobin (Bld) [Mass/Vol] 14.1 g/dL Normal 12.0-16.0 [facility] Comment on above: Performed By: #### A 1C #### [facility] [address] [place] [address] Dr. Gin Chew IG # 0.10 10e3/ul Critically high 0.00-0.03 [facility] Comment on above: Performed By: #### A 1C #### [facility] [address] [place] [address] Dr. Gin Chew IG % 0.9 % Critically high 0.0-0.5 [facility] Comment on above: Performed By: #### A 1C #### [facility] [address] [place] [address] Dr. Gin Chew LYMPH # 3.4 103/ul Normal 1.2-3.8 [facility] Comment on above: Performed By: #### A 1C #### [facility] [address] [place] [address] Dr. Gin Chew Lymphocytes/100 WBC (Bld) 29.9 % Normal 20.5-60.0 [facility] Comment on above: Performed By: #### A 1C #### [facility] [address] [place] [address] Dr. Gin Chew MANUAL DIFF REQ NO Normal [facility] Comment on above: Performed By: #### A 1C #### [facility] [address] [place] [address] Dr. Gin Chew MCH (RBC) [Entitic mass] 31.0 pg Normal 26.7-34.0 [facility] Comment on above: Performed By: #### A 1C #### [facility] [address] [place] [address] Dr. Gin Chew MCHC (RBC) [Mass/Vol] 33.4 g/dL Normal 29.9-35.2 [facility] Comment on above: Performed By: #### A 1C #### [facility] [address] [place] [address] Dr. Gin Chew MCV (RBC) [Entitic vol] 92.7 fL Normal 81.0-99.0 [facility] Comment on above: Performed By: #### A 1C #### [facility] [address] [place] [address] Dr. Gin Chew MONO # 0.7 103/ul Normal 0.3-0.8 [facility] Comment on above: Performed By: #### A 1C #### [facility] [address] [place] [address] Dr. Gin Chew Monocytes/100 WBC (Bld) 6.5 % Normal 1.7-12.0 [facility] Comment on above: Performed By: #### A 1C #### [facility] [address] [place] [address] Dr. Gin Chew NEUT # 6.5 103/ul Normal 1.4-6.5 [facility] Comment on above: Performed By: #### A 1C #### [facility] [address] [place] [address] Dr. Gin Chew Neutrophils/100 WBC (Bld) 57.6 % Normal 43.0-75.0 [facility] Comment on above: Performed By: #### A 1C #### [facility] [address] [place] [address] Dr. Gin Chew Platelet mean volume (Bld) [Entitic vol] 10.1 fL Normal 9.5-13.5 [facility] Comment on above: Performed By: #### A 1C #### [facility] [address] [place] [address] Dr. Gin Chew PLT 349 103/ul Normal 150-450 [facility] Comment on above: Performed By: #### A 1C #### [facility] [address] [place] [address] Dr. Gin Chew RBC 4.55 106/ul Normal 4.20-5.40 [facility] Comment on above: Performed By: #### A 1C #### [facility] [address] [place] [address] Dr. Gin Chew WBC 11.3 103/ul Critically high 4.0-11.0 [facility] Comment on above: Performed By: #### A 1C #### [facility] [address] [place] [address] ABD/PELVIS WO CONon [...] by: JEFF PATHAK Date: 2021-09-28 10:31 Normal [facility] POINT OF CARE GLUCOSEon 09-18 Glucose [Mass/Vol] 129 mg/dL Critically high 74-106 T [facility] Comment on above: Performed By: #### F T3, CMP, LIPID, TSH #### [facility] [address] [address] [address] Gin Chew PROF 14(COMP METB)on 09-28- 022 Albumin [Mass/Vol] 3.7 g/dL Normal 3.4-5.0 [facility] Comment on above: Performed By: #### F T3, CMP, LIPID, TSH #### [facility] [address] [address] [address] Gin Chew Albumin/Globulin [Mass ratio] 1.1 {ratio} Normal [facility] Comment on above: Performed By: #### F T3, CMP, LIPID, TSH #### [facility] [address] [address] [address] Gin Chew ALP [Catalytic activity/Vol] 79 U/L Normal 46-116 [facility] Comment on above: Performed By: #### F T3, CMP, LIPID, TSH #### [facility] [address] [address] [address] Gin Chew ALT [Catalytic activity/Vol] 28 U/L Normal 14-59 [facility] Comment on above: Performed By: #### F T3, CMP, LIPID, TSH #### [facility] [address] [address] [address] Gin Chew Anion gap [Moles/Vol] 9.9 mmol/L Normal [facility] Comment on above: Performed By: #### F T3, CMP, LIPID, TSH #### [facility] [address] [address] [address] Gin Chew AST [Catalytic activity/Vol] 15 U/L Normal 15-37 [facility] Comment on above: Performed By: #### F T3, CMP, LIPID, TSH #### [facility] [address] [address] [address] Gin Chew Bilirubin [Mass/Vol] 0.3 mg/dL Normal 0.2-1.0 [facility] Comment on above: Performed By: #### F T3, CMP, LIPID, TSH #### [facility] [address] [address] [address] Gin Chew Calcium [Mass/Vol] 9.2 mg/dL Normal 8.5-10.1 [facility] Comment on above: Performed By: #### F T3, CMP, LIPID, TSH #### [facility] [address] [address] [address] Gin Chew Chloride [Moles/Vol] 100 mmol/L Normal 98-107 [facility] Comment on above: Performed By: #### F T3, CMP, LIPID, TSH #### [facility] [address] [place] [address] Dr. Gni Chew CO2 [Moles/Vol] 32.1 mmol/L Critically high 21.0-32.0 [facility] Comment on above: Performed By: #### F T3, CMP, LIPID, TSH #### [facility] [address] [place] [address] Dr. Gin Chew Creatinine [Mass/Vol] 0.75 mg/dL Normal 0.55-1.02 [facility] Comment on above: Performed By: #### F T3, CMP, LIPID, TSH #### [facility] [address] [place] [address] Dr. Gin Chew EGFR-AF BULGARIAN >60 Normal >=60 [facility] Comment on above: Performed By: #### F T3, CMP, LIPID, TSH #### [facility] [address] [place] [address] Dr. Gin Chew EGFR-NON AF BULGARIAN >60 Normal >=60 [facility] Comment on above: Performed By: #### F T3, CMP, LIPID, TSH #### [facility] [address] [place] [address] Dr. Gin Chew Globulin (S) [Mass/Vol] 3.4 g/dL Normal [facility] Comment on above: Performed By: #### F T3, CMP, LIPID, TSH #### [facility] [address] [address] [address] Gin Chew Glucose [Mass/Vol] 138 mg/dL Critically high 74-106 T [facility] Comment on above: Performed By: #### F T3, CMP, LIPID, TSH #### [facility] [address] [address] [address] Gin Chew Potassium [Moles/Vol] 4.0 mmol/L Normal 3.5-5.1 [facility] Comment on above: Performed By: #### F T3, CMP, LIPID, TSH #### [facility] [address] [address] [address] Gin Chew Protein [Mass/Vol] 7.1 g/dL Normal 6.4-8.2 [facility] Comment on above: Performed By: #### F T3, CMP, LIPID, TSH #### [facility] [address] [address] [address] Gin Chew Sodium [Moles/Vol] 138 mmol/L Normal 136-145 [facility] Comment on above: Performed By: #### F T3, CMP, LIPID, TSH #### [facility] [address] [address] [address] Gin Chew Urea nitrogen [Mass/Vol] 17.0 mg/dL Normal 7.0-18.0 [facility] Comment on above: Performed By: #### F T3, CMP, LIPID, TSH #### [facility] [address] [address] [address] Gin Chew Urea nitrogen/Creatinine [Mass ratio] 22.7 mg/mg Normal [facility] Comment on above: Performed By: #### F T3, CMP, LIPID, TSH #### [facility] [address] [address] [address] Gin Chew PROTIMEon 09-28-2021 INR Coag (PPP) [Relative time] 0.94 {INR} Normal [facility] Comment on above: Performed By: #### B MP #### [facility] [address] [address] [address] Gin Chew INR GUIDELINES SEE BELOW Normal [facility] Comment on above: Result Comment: MERRICK RED INR: 2.0 - 3.0 CONDITIONS NOT LISTED BELOW 2.5 - 3.5 FOR PROSTHETIC HEART VALVE REPLACEMENT 2.5 - 3.5 RECURRENT THROMBOSIS Performed By: #### B MP #### [facility] [address] [place] [address] Dr. Gin Chew PT Coag (PPP) [Time] 10.2 s Normal 9.0-11.6 [facility] Comment on above: Performed By: #### B MP #### [facility] [address] [place] [address] Dr. Gin Chew PTTon 09-28-2021 aPTT Coag (Bld) [Time] 26.9 s Normal 22.3-36.2 [facility] Comment on above: Performed By: #### B MP #### [facility] [address] [place] [address] Dr. Gin Chew TROPONIN, HIGH SENSITIVITYon 09-28-2021 HSTROP 7.3 pg/mL Normal 4.0-51.3 [facility] Comment on above: Result Comment: CUT- OFF POINTS HAVE BEEN ESTABLISHED BASED ON THE FOURTH UNIVERSAL DEFINITIONS OF MYOCARDIAL INFARCTION. THE UPPER REFERENCE LIMIT (URL) OF TROPONIN, DEFINED THE 99TH PERCENTILE OF cTnI DISTRIBUTION IN A REFERENCE POPULATION, HAS BEEN CONFIRMED THE DECISION THRESHOLD FOR MA DIAGNOSIS. Performed By: #### B MP #### [facility] [address] [place] [address] Dr. Gin Chew XR CHEST 1 Von [...] by: JEFF PATHAK Date: 2021-09-28 09:20 Normal [facility] 07-21-2021 CNPN Telephone (ENDOMN) CANELO PATHAK ([id number]) 1965 F Date Time Provider Department 07/21/21 [...] to please [facility] are [facility]. Allergies As [...] mcg (5,000 unit) cap - Vitamin D [place] ([employer]) Take 1 capsule by mouth daily with food. - montelukast (SINGULAIR) 10 mg tablet Take 10 mg by mouth daily at bedtime. - MULTIVIT-MINERALS/GEOVANI ALEXSANDRA GLUC (CENTRAM-CARE ORAL) Take by mouth twice daily. - esomeprazole mag trihydrate(NEXIUM 40 MG CAP) Take one(1) capsule daily. - mometasone furoate(NASONEX 50 MCG/ACTUATION SPRAY) [place] twice in each nostril once daily. - [...] Encounter Status:Closed by LUAN ROMANO on 07/21/21 [facility] 06-22-2021 [facility] Telephone (ENDOMN) CANELO PATHAK ([id number]) 1965 F Date Time Provider Department 06/22/21 ASAD ANSARI During your visit today, we recorded the following information about you: Neema Neptali Adm 06/22/2021 9:10 AM Signed Patient called in requesting the results of her labs that she had completed on 06/16/2021 Canelo can be reached at [phone] (C) or can be reached through [employer]. Allergies As of Date: 06/22/2021 Noted Allergy [...] Fully Assessed Reason for Visit: Patient Question [1107] Prescriptions as of 05/10/2022 - levothyroxine (SYNTHROID) [...] daily. - mometasone furoate(NASONEX 50 MCG/ACTUATION SPRAY) [place] twice in each nostril once daily. - [...] Encounter Status:Closed by NEEMA HIGGINBOTHAM on 05/10/22 Normal [facility] CNOVon 06-16-2021 CNOV Office Visit (ENDOMN ) CANELO PATHAK ([id number]) 1965 F Date Time Provider Department 06/16/21 1:20 PM ASAD ANSARI ENDOANIKET During your visit today, we recorded the following information about you: Pulse Blood pressure Weight 87/minute 168/97 128.7 kg Aracelis Abosonu Rivers Ma 06/16/2021 12:23 PM Signed Thank you for choosing the [facility] Department of Endocrinology, Diabetes and Metabolism. Did you know that you need to call 48 hours in advance of your scheduled visit, if you are unable to make your appointment? The [facility] [place] thanks you for your commitment, because patients not showing to their appointment results in a lost opportunity for patients to receive world class health care at the [facility]. To Cancel an appointment, please choose one of the following: - Call the Appointment Call Center at [phone] - From [employer], Go to Appointments ? Cancel Appts If cancelling, consider your need to reschedule to prevent further delays in your care. To Schedule an appointment, please choose one of the following: - Call the Appointment Call Center at [phone] - From [employer], Go to Appointments ? Request an Appt Asad Ansari MD 06/16/2021 1:56 PM Signed Last Visit: This is the first visit. Ms. Pathak is here for follow up regarding her DM Type 2 and hypothyroidism. Current Immunizations: Most Recent Immunizations Administered Date(s) Administered COVID-19 vaccine, age 12+ yr ([employer] - PURPLE [employer]) 09/23/2020 PHYSICAL EXAMINATION: BP [...] mouth daily before breakfast. - Vitamin D [place] ([employer]) Take 1 capsule by mouth daily with food. - montelukast (SINGULAIR) 10 mg tablet Take 10 mg by mouth daily at bedtime. - MULTIVIT-MINERALS/GEOVANI ALEXSANDRA GLUC (CENTRAM-CARE ORAL) Take by mouth twice daily. - esomeprazole mag trihydrate(NEXIUM 40 MG CAP) Take one(1) capsule daily. - mometasone furoate(NASONEX 50 MCG/ACTUATION SPRAY) [place] twice in each nostril once daily. - [...] No tremors. (more content not included)... Normal [facility] Comp Metabolic Panelon 06-16 Albumin [Mass/Vol] 4.6 g/dL Normal 3.9-4.9 [facility] Comment on above: Performed By: #### C MP, HBA1C, FREET3, FT4, TSH #### [facility] [address] [place], [place] [address] ALP [Catalytic activity/Vol] 83 U/L Normal 34-123 [facility] Comment on above: Performed By: #### C MP, HBA1C, FREET3, FT4, TSH #### [address] [place], [place] [address] ALT [Catalytic activity/Vol] 28 U/L Normal 7-38 [facility] Comment on above: Performed By: #### C MP, HBA1C, FREET3, FT4, TSH #### [address] [address] Anion gap [Moles/Vol] 12 mmol/L Normal 9-18 [facility] Comment on above: Performed By: #### C MP, HBA1C, FREET3, FT4, TSH #### [address] [address] AST [Catalytic activity/Vol] 25 U/L Normal 13-35 [facility] Comment on above: Performed By: #### C MP, HBA1C, FREET3, FT4, TSH #### [address] [place], [place] [address] Bilirubin [Mass/Vol] 0.4 mg/dL Normal 0.2-1.3 [facility] Comment on above: Performed By: #### C MP, HBA1C, FREET3, FT4, TSH #### [address] [place], [place] [address] Calcium [Mass/Vol] 10.0 mg/dL Normal 8.5-10.2 [facility] Comment on above: Performed By: #### C MP, HBA1C, FREET3, FT4, TSH #### [address] [id number] Chloride [Moles/Vol] 102 mmol/L Normal 97-105 [facility] Comment on above: Performed By: #### C MP, HBA1C, FREET3, FT4, TSH #### [facility] [address] [phone] CO2 [Moles/Vol] 27 mmol/L Normal 22-30 [facility] Comment on above: Performed By: #### C MP, HBA1C, FREET3, FT4, TSH #### [address] [phone] Creatinine [Mass/Vol] 0.74 mg/dL Normal 0.58-0.96 [facility] Comment on above: Performed By: #### C MP, HBA1C, FREET3, FT4, TSH #### [address] [address] eGFR- Amer. >60 Normal [facility] Comment on above: Performed By: #### C MP, HBA1C, FREET3, FT4, TSH #### [address] [address] eGFR-All Other Races >60 Normal [facility] Comment on above: Result Comment: eGFR [...] C MP, HBA1C, FREET3, FT4, TSH #### [facility] [address] [place], [place] [address] Glucose [Mass/Vol] 106 mg/dL High 74-99 [facility] Comment on above: Result Comment: The [place] Diabetes Association (ADA) provides guidance for cutoff [...] Standards of Medical Care in Diabetes 2016, [place] Diabetes Association. Diabetes Care. 2016.39(Suppl 1). Performed By: #### C MP, HBA1C, FREET3, FT4, TSH #### [address] [address] Potassium [Moles/Vol] 3.9 mmol/L Normal 3.7-5.1 [facility] Comment on above: Performed By: #### C MP, HBA1C, FREET3, FT4, TSH #### [address] [place] [address] Protein [Mass/Vol] 7.2 g/dL Normal 6.3-8.0 [facility] Comment on above: Performed By: #### C MP, HBA1C, FREET3, FT4, TSH #### [facility] [address] [place], [place] [address] Sodium [Moles/Vol] 141 mmol/L Normal 136-144 [facility] Comment on above: Performed By: #### C MP, HBA1C, FREET3, FT4, TSH #### [facility] [address] [place], [place] [address] Urea nitrogen [Mass/Vol] 15 mg/dL Normal 7-21 [facility] Comment on above: Performed By: #### C MP, HBA1C, FREET3, FT4, TSH #### [address] [place] [address] Free T3on 06-16-2021 Free T3 [Mass/Vol] 2.8 pg/mL Normal 2.3-4.1 [facility] Comment on above: Performed By: #### C MP, HBA1C, FREET3, FT4, TSH #### [address] [address] Free T4on 06-16-2021 Free T4 [Mass/Vol] 2.0 ng/dL High 0.9-1.7 [facility] Comment on above: Performed By: #### C MP, HBA1C, FREET3, FT4, TSH #### [address] [address] Hemoglobin A1con 06-16-2021 Glucose [Mass/Vol] 169 mg/dL Normal [facility] Comment on above: Result Comment: eAG: (Estimated average glucose) is a calculated value from HgbA1c and is termite control service representative of the average blood glucose level in the last 2-3 month period. Performed By: #### C MP, HBA1C, FREET3, FT4, TSH #### [address] [address] HbA1c (Bld) [Mass fraction] 7.5 % High 4.3-5.6 [facility] Comment on above: Result Comment: [place] Diabetes Association guidelines indicate that patients with HgbA1c in the range 5.7-6.4% are at increased risk for development of diabetes, and intervention by lifestyle modification may be beneficial. HgbA1c greater or equal to 6.5% is considered diagnostic of diabetes. 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 ([place], [place]) Vital Signs Date Time Vital Sign Value Performing Clinician Arabella darling 06-13-2024 11:14050 Body height 165.1 cm [facility] 06-13-2024 11:14050 Body mass index (BMI) [Ratio] 46 kg/m2 [facility] 06-13-2024 11:14050 Body temperature 97.8 [degF] [facility] 06-13-2024 11:14050 Body weight 125.64 kg [facility] 06-13-2024 11:14-0500 Diastolic blood pressure 84 mm[Hg] [facility] 06-13-2024 11:14-0500 Heart rate 92 /min [facility] 06-13-2024 11:14-0500 SaO2% (BldA) [Mass fraction] 94 % [facility] 06-13-2024 11:14-0500 Systolic blood pressure 130 mm[Hg] [facility] 06-03-2024 11:45-0500 Body weight 125.81 kg [facility] 06-03-2024 11:45-0500 Diastolic blood pressure 80 mm[Hg] [facility] 06-03-2024 11:45-0500 Heart rate 91 /min [facility] 06-03-2024 11:45-0500 SaO2% (BldA) [Mass fraction] 97 % [facility] 06-03-2024 11:45-0500 Systolic blood pressure 140 mm[Hg] [facility] 04-11-2024 11:52-0500 Body height 165.1 cm [facility] 04-11-2024 11:52-0500 Body mass index (BMI) [Ratio] 45.1 kg/m2 [facility] 04-11-2024 11:52-0500 Body temperature 97.2 [degF] [facility] 04-11-2024 11:52-0500 Body weight 122.92 kg [facility] 04-11-2024 11:52-0500 Diastolic blood pressure 88 mm[Hg] [facility] 04-11-2024 11:52-0500 Heart rate 86 /min [facility] 04-11-2024 11:52-0500 SaO2% (BldA) [Mass fraction] 94 % [facility] 04-11-2024 11:52-0500 Systolic blood pressure 138 mm[Hg] [facility] 03-26-2024 11:37-0500 Body height 165.1 cm [facility] 03-26-2024 11:37-0500 Body mass index (BMI) [Ratio] 45.4 kg/m2 [facility] 03-26-2024 11:37-0500 Body temperature 97.4 [degF] [facility] 03-26-2024 11:37-0500 Body weight 123.83 kg [facility] 03-26-2024 11:37-0500 Diastolic blood pressure 84 mm[Hg] [facility] 03-26-2024 11:37-0500 Heart rate 78 /min [facility] 03-26-2024 11:37-0500 Respiratory rate 20 /min [facility] 03-26-2024 11:37-0500 SaO2% (BldA) [Mass fraction] 97 % [facility] 03-26-2024 11:37-0500 Systolic blood pressure 148 mm[Hg] [facility] 02-12-2024 11:53-0400 Diastolic blood pressure 90 mm[Hg] DO Jeff Jon Work Phone: [facility] 02-12-2024 11:53-0400 Heart rate 83 /min DO Jeff Jon Work Phone: [facility] 02-12-2024 11:53-0400 SaO2% (BldA) [Mass fraction] 97 % DO Jeff Jon Work Phone: [facility] 02-12-2024 11:53-0400 Systolic blood pressure 130 mm[Hg] DO Jeff Jon Work Phone: [facility] 01-14-2024 15:56-0400 Diastolic blood pressure 80 mm[Hg] DO Jeff Jon Work Phone: [facility] 01-14-2024 15:56-0400 Heart rate 82 /min DO Jeff Jon Work Phone: [facility] 01-14-2024 15:56-0400 SaO2% (BldA) [Mass fraction] 97 % DO Jeff Jon Work Phone: [facility] 01-14-2024 15:56-0400 Systolic blood pressure 142 mm[Hg] DO Jeff Jon Work Phone: [facility] 12-19-2023 14:19-0400 Diastolic blood pressure 80 mm[Hg] DO Jeff Jon Work Phone: [facility] 12-19-2023 14:19-0400 Heart rate 100 /min DO Jeff Jon Work Phone: [facility] 12-19-2023 14:19-0400 SaO2% (BldA) [Mass fraction] 96 % DO Jeff Jon Work Phone: [facility] 12-19-2023 14:19-0400 Systolic blood pressure 130 mm[Hg] DO Jeff Jon Work Phone: [facility] 12-05-2023 13:53-0400 Body weight 124.05 kg [facility] 12-05-2023 13:53-0400 Diastolic blood pressure 90 mm[Hg] [facility] 12-05-2023 13:53-0400 Heart rate 91 /min [facility] 12-05-2023 13:53-0400 SaO2% (BldA) [Mass fraction] 97 % [facility] 12-05-2023 13:53-0400 Systolic blood pressure 142 mm[Hg] [facility] 10-29-2023 14:41-0400 Body height 165.1 cm [facility] 10-29-2023 14:41-0400 Body mass index (BMI) [Ratio] 45.7 kg/m2 [facility] 10-29-2023 14:41-0400 Body weight 124.73 kg [facility] 10-29-2023 14:41-0400 Diastolic blood pressure 86 mm[Hg] [facility] 10-29-2023 14:41-0400 Heart rate 87 /min [facility] 10-29-2023 14:41-0400 Respiratory rate 18 /min [facility] 10-29-2023 14:41-0400 SaO2% (BldA) [Mass fraction] 97 % [facility] 10-29-2023 14:41-0400 Systolic blood pressure 142 mm[Hg] [facility] 09-26-2023 14:12-0400 Body height 165.1 cm [facility] 09-26-2023 14:12-0400 Body mass index (BMI) [Ratio] 46 kg/m2 [facility] 09-26-2023 14:12-0400 Body temperature 98.1 [degF] [facility] 09-26-2023 14:12-0400 Body weight 125.64 kg [facility] 09-26-2023 14:12-0400 Diastolic blood pressure 96 mm[Hg] [facility] 09-26-2023 14:12-0400 SaO2% (BldA) [Mass fraction] 95 % [facility] 09-26-2023 14:12-0400 Systolic blood pressure 152 mm[Hg] [facility] 08-28-2023 11:23-0400 Diastolic blood pressure 94 mm[Hg] [facility] 08-28-2023 11:23-0400 Heart rate 89 /min [facility] 08-28-2023 11:23-0400 SaO2% (BldA) [Mass fraction] 98 % [facility] 08-28-2023 11:23-0400 Systolic blood pressure 142 mm[Hg] [facility] 08-28-2023 10:49-0400 Body height 165.1 cm [facility] 08-28-2023 10:49-0400 Body mass index (BMI) [Ratio] 45.7 kg/m2 [facility] 08-28-2023 10:49-0400 Body weight 124.73 kg [facility] 05-10-2023 14:10-0500 Diastolic blood pressure 90 mm[Hg] [...] 03-19-2023 14:00-0400 Body height 165.1 cm Carlos Terraazs Other [facility] Other 03-19-2023 14:00-0400 Body mass index (BMI) [Ratio] 45.09 kg/m2 Carlos Terrazas Other [facility] Other 03-19-2023 14:00-0400 Body temperature 97.8 [degF] Carlos Terrazas Other [facility] Other 03-19-2023 14:00-0400 Body weight 122.93 kg Carlos Terrazas Other [facility] Other 03-19-2023 14:00-0400 Respiratory rate 20 /min Carlos Terrazas Other [facility] Other 03-19-2023 14:00-0400 SaO2% (BldA) [Mass fraction] 98 % Carlos Terrazas Other [facility] Other 02-22-2023 08:10-0400 Body height 165.1 cm Jeff Jon Other [facility] Other 02-22-2023 08:10-0400 Body mass index (BMI) [Ratio] 45.26 kg/m2 Jeff Jon Other [facility] Other 02-22-2023 08:10-0400 Body temperature 97.8 [degF] Jeff Jon Other [facility] Other 02-22-2023 08:10-0400 Body weight 123.38 kg Jeff Jon Other [facility] Other 02-22-2023 08:10-0400 Diastolic blood pressure 104 mm[Hg] Jeff Jon Other [facility] Other 02-22-2023 08:10-0400 Respiratory rate 18 /min Jeff Jon Other [facility] Other 02-22-2023 08:10-0400 SaO2% (BldA) [Mass fraction] 99 % Jeff Jon Other [facility] Other 02-22-2023 08:10-0400 Systolic blood pressure 158 mm[Hg] Jeff Dontrell Other [facility] Other 10-24-2022 16:50-0400 Body height 165.1 cm Lacie Manuel Other [facility] Other 10-24-2022 16:50-0400 Body mass index (BMI) [Ratio] 45.09 kg/m2 Lacie Manuel Other [facility] Other 10-24-2022 16:50-0400 Body temperature 98 [degF] Lacie Manuel Other [facility] Other 10-24-2022 16:50-0400 Body weight 122.93 kg Lacie Manuel Other [facility] Other 10-24-2022 16:50-0400 Diastolic blood pressure 81 mm[Hg] Lacie Manuel Other [facility] Other 10-24-2022 16:50-0400 Respiratory rate 18 /min Lacie Manuel Other [facility] Other 10-24-2022 16:50-0400 SaO2% (BldA) [Mass fraction] 95 % Lacie Kaleb Other [facility] Other 10-24-2022 16:50-0400 Systolic blood pressure 148 mm[Hg] Lacie Manuel Other [facility] Other 10-17-2022 08:45-0400 Body height 165.1 cm Carlos Parkno Other [facility] Other 10-17-2022 08:45-0400 Body mass index (BMI) [Ratio] 44.76 kg/m2 Ryleyer Mk Other [facility] Other 10-17-2022 08:45-0400 Body temperature 96.8 [degF] Ryleyer Mk Other [facility] Other 10-17-2022 08:45-0400 Body weight 122.02 kg Christkyleer Mk Other [facility] Other 10-17-2022 08:45-0400 Diastolic blood pressure 80 mm[Hg] Ryleyer Mk Other [facility] Other 10-17-2022 08:45-0400 Respiratory rate 20 /min Ryleyer Mk Other [facility] Other 10-17-2022 08:45-0400 SaO2% (BldA) [Mass fraction] 98 % Ryleyer Mk Other [facility] Other 10-17-2022 08:45-0400 Systolic blood pressure 153 mm[Hg] Christkyleer Mk Other [facility] Other 09-13-2022 10:15-0400 Body height 165.1 cm Christopher Mk Other [facility] Other 09-13-2022 10:15-0400 Body mass index (BMI) [Ratio] 43.43 kg/m2 Christopher Mk Other [facility] Other 09-13-2022 10:15-0400 Body temperature 97.8 [degF] Ryleyer Mk Other [facility] Other 09-13-2022 10:15-0400 Body weight 118.39 kg Christkyleer Mk Other [facility] Other 09-13-2022 10:15-0400 Diastolic blood pressure 100 mm[Hg] Christkyleer Mk Other [facility] Other 09-13-2022 10:15-0400 Respiratory rate 20 /min Christkyleer Mk Other [facility] Other 09-13-2022 10:15-0400 SaO2% (BldA) [Mass fraction] 100 % Christopher Mk Other [facility] Other 09-13-2022 10:15-0400 Systolic blood pressure 180 mm[Hg] Zenonopher Mk Other [facility] Other 08-11-2022 13:35-0400 Body height 165.1 cm Lacie Kaleb Other [facility] Other 08-11-2022 13:35-0400 Body mass index (BMI) [Ratio] 26.62 kg/m2 Lacie Manuel Other [facility] Other 08-11-2022 13:35-0400 Body temperature 97.8 [degF] Lacie Manuel Other [facility] Other 08-11-2022 13:35-0400 Body weight 72.58 kg Lacie Manuel Other [facility] Other 08-11-2022 13:35-0400 Respiratory rate 18 /min Lacie Manuel Other [facility] Other 08-11-2022 13:35-0400 SaO2% (BldA) [Mass fraction] 98 % Lacie Kaleb Other [facility] Other 07-12-2022 13:20-0500 Body height 165.1 cm Jeff Jon Other [facility] Other 07-12-2022 13:20-0500 Body mass index (BMI) [Ratio] 43.26 kg/m2 Jeff Jon Other [facility] Other 07-12-2022 13:20-0500 Body temperature 96.1 [degF] Jeff Jon Other [facility] Other 07-12-2022 13:20-0500 Body weight 117.94 kg Jeff Jon Other [facility] Other 07-12-2022 13:20-0500 Diastolic blood pressure 84 mm[Hg] Jeff Jon Other [facility] Other 07-12-2022 13:20-0500 Respiratory rate 18 /min Jeff Jon Other [facility] Other 07-12-2022 13:20-0500 SaO2% (BldA) [Mass fraction] 99 % Jeff Jon Other [facility] Other 07-12-2022 13:20-0500 Systolic blood pressure 138 mm[Hg] Jeff Jon Other [facility] Other 04-11-2022 13:40-0500 Body height 165.1 cm Jeff Jon Other [facility] Other 04-11-2022 13:40-0500 Body mass index (BMI) [Ratio] 43.26 kg/m2 Jeff Jon Other [facility] Other 04-11-2022 13:40-0500 Body temperature 97.5 [degF] Jeff Jon Other [facility] Other 04-11-2022 13:40-0500 Body weight 117.94 kg Jeff Jon Other [facility] Other 04-11-2022 13:40-0500 Diastolic blood pressure 104 mm[Hg] Jeff Jon Other [facility] Other 04-11-2022 13:40-0500 Respiratory rate 18 /min Jeff Jon Other [facility] Other 04-11-2022 13:40-0500 SaO2% (BldA) [Mass fraction] 98 % Jeff Jon Other [facility] Other 04-11-2022 13:40-0500 Systolic blood pressure 144 mm[Hg] Jeff Jon Other [facility] Other 12-06-2021 12:00-0400 Body height 165.1 cm Lorena Jacky Other [facility] Other 12-06-2021 12:00-0400 Body mass index (BMI) [Ratio] 45.09 kg/m2 Lorena Jacky Other [facility] Other 12-06-2021 12:00-0400 Body temperature 96.9 [degF] Lorena Jacky Other [facility] Other 12-06-2021 12:00-0400 Body weight 122.93 kg Lorena Jacky Other [facility] Other 12-06-2021 12:00-0400 Diastolic blood pressure 88 mm[Hg] Lorena Jacky Other [facility] Other 12-06-2021 12:00-0400 Respiratory rate 20 /min Lorena Jacky Other [facility] Other 12-06-2021 12:00-0400 SaO2% (BldA) [Mass fraction] 99 % Lorena Jacky Other [facility] Other 12-06-2021 12:00-0400 Systolic blood pressure 148 mm[Hg] Lorena Jacky Other [facility] Other 10-20-2021 11:30-0400 Body height 165.1 cm Jeff Jon Other [facility] Other 10-20-2021 11:30-0400 Body mass index (BMI) [Ratio] 46.09 kg/m2 Jeff Acostacassi Other [facility] Other 10-20-2021 11:30-0400 Body temperature 96.8 [degF] Jeff Dontrell Other [facility] Other 10-20-2021 11:30-0400 Body weight 125.65 kg Jeff Acostacassi Other [facility] Other 10-20-2021 11:30-0400 Diastolic blood pressure 88 mm[Hg] Jeff Acostacassi Other [facility] Other 10-20-2021 11:30-0400 Respiratory rate 18 /min Jeff Acostacassi Other [facility] Other 10-20-2021 11:30-0400 SaO2% (BldA) [Mass fraction] 96 % Jeff Jon Other [facility] Other 10-20-2021 11:30-0400 Systolic blood pressure 148 mm[Hg] Jeff Acostacassi Other [facility] Other 10-07-2021 13:46-0400 Body weight 125.83 kg Leena Seymour MD Work Phone: [facility] 10-07-2021 13:46-0400 Diastolic blood pressure 93 mm[Hg] Leena Seymour MD Work Phone: [facility] 10-07-2021 13:46-0400 Heart rate 94 /min Leena Seymour MD Work Phone: [facility] 10-07-2021 13:46-0400 Systolic blood pressure 155 mm[Hg] Leena Seymour MD Work Phone: [facility] 03-15-2021 13:40-0400 Body height 165.1 cm Jeff Jon Other [facility] Other 03-15-2021 13:40-0400 Body mass index (BMI) [Ratio] 45.51 kg/m2 Jeff Jon Other [facility] Other 03-15-2021 13:40-0400 Body temperature 97.7 [degF] Jeff Jon Other [facility] Other 03-15-2021 13:40-0400 Body weight 124.06 kg Jeff Jon Other [facility] Other 03-15-2021 13:40-0400 Diastolic blood pressure 92 mm[Hg] Jeff Jon Other [facility] Other 03-15-2021 13:40-0400 Respiratory rate 20 /min Jeff Jon Other [facility] Other 03-15-2021 13:40-0400 SaO2% (BldA) [Mass fraction] 98 % Jeff Jon Other [facility] Other 03-15-2021 13:40-0400 Systolic blood pressure 146 mm[Hg] Jeff Jon Other [facility] Other 02-21-2021 11:00-0400 Body height 165.1 cm Carlos Terrazas Other [facility] Other 02-21-2021 11:00-0400 Body mass index (BMI) [Ratio] 44.93 kg/m2 Carlos Terrazas Other [facility] Other 02-21-2021 11:00-0400 Body temperature 97.5 [degF] Carlos Parkno Other [facility] Other 02-21-2021 11:00-0400 Body weight 122.47 kg Ryleykirby PhillipsMk Other [facility] Other 02-21-2021 11:00-0400 Diastolic blood pressure 92 mm[Hg] Carlos Mk Other [facility] Other 02-21-2021 11:00-0400 Respiratory rate 20 /min Carlos Mk Other [facility] Other 02-21-2021 11:00-0400 SaO2% (BldA) [Mass fraction] 99 % Ryleykirby PhillipsMk Other [facility] Other 02-21-2021 11:00-0400 Systolic blood pressure 154 mm[Hg] Carlos Parkno Other [facility] Other Encounters Encounter Date Encounter Type Care Provider Facility Start: 06-13-2024 End: 06-13-2024 [facility] Work Phone: Start: 06-13-2024 End: 06-13-2024 Patient encounter procedure [facility] Physician [facility] [place] Work Phone: Start: 06-03-2024 End: 06-03-2024 ambulatory [facility] Work Phone: Start: 06-03-2024 End: 06-03-2024 Patient encounter procedure [facility] Physician [facility] Work Phone: Start: 04-11-2024 End: 04-11-2024 Patient encounter procedure [facility] Physician [facility] [place] Work Phone: Start: 03-26-2024 End: 03-26-2024 ambulatory [facility] Work Phone: Start: 03-26-2024 End: 03-26-2024 Patient encounter procedure [facility] Physician [facility] Work Phone: Start: 03-20-2024 Non-patient / Non-visit [facility] Physician [facility] Work Phone: Start: 02-12-2024 End: 02-12-2024 ambulatory DO Jeff Jon Work Phone: [facility] Work Phone: Start: 02-12-2024 End: 02-12-2024 Patient encounter procedure DO Jeff Jon Work Phone: [facility] Physician [facility] Work Phone: Start: 02-05-2024 End: 02-05-2024 ambulatory DO Jeff Jon Work Phone: [facility] Work Phone: Start: 02-05-2024 End: 02-05-2024 Patient encounter procedure DO Jeff Jon Work Phone: [facility] Physician [facility] Work Phone: Start: 02-05-2024 Non-patient / Non-visit DO Dane Jon Work Phone: [facility] Physician [facility] Work Phone: Start: 01-28-2024 ambulatory Jeff Jon DO F acility:[facility] Start: 01-14-2024 End: 01-14-2024 ambulatory DO Jeff Jon Work Phone: [facility] Work Phone: Start: 01-14-2024 End: 01-14-2024 Patient encounter procedure DO Jeff Jon Work Phone: [facility] Work Phone: Start: 01-07-2024 ambulatory Jeff Jon DO F acility:[facility] Start: 12-27-2023 Non-patient / Non-visit DO Dane Jon Work Phone: [facility] Physician [facility] Work Phone: Start: 12-27-2023 End: 12-27-2023 ambulatory DO Jeff Jon Work Phone: [facility] Work Phone: Start: 12-27-2023 End: 12-27-2023 Patient encounter procedure DO Jeff Jon Work Phone: [facility] Work Phone: Start: 12-19-2023 End: 12-19-2023 ambulatory DO Jeff Jon Work Phone: [facility] Work Phone: Start: 12-19-2023 End: 12-19-2023 Patient encounter procedure DO Jeff Jon Work Phone: [facility] Physician [facility] Work Phone: Start: 12-12-2023 ambulatory Jeff VERA acility:[facility] Start: 12-12-2023 End: 12-12-2023 ambulatory Jeff Jon [place] Start: 12-05-2023 End: 12-05-2023 ambulatory DO Jeff Jon Work Phone: [facility] Work Phone: Start: 12-05-2023 End: 12-05-2023 Patient encounter procedure [facility] Physician [facility] Work Phone: Start: 10-29-2023 End: 10-29-2023 ambulatory [facility] Work Phone: Start: 10-29-2023 End: 10-29-2023 Patient encounter procedure [facility] Physician [facility] [place] Work Phone: Start: 10-25-2023 Non-patient / Non-visit [facility] Work Phone: Start: 10-23-2023 End: 10-23-2023 ambulatory JENNIE H TIMMIS Not Available Start: 09-26-2023 End: 09-26-2023 ambulatory [facility] Work Phone: Start: 09-26-2023 End: 09-26-2023 Patient encounter procedure [facility] Work Phone: Start: 09-24-2023 End: 09-24-2023 ambulatory JENNIE H TIMMIS Not Available Start: 09-18-2023 End: 09-18-2023 ambulatory SVETLANA SINGH Not Available Start: 09-05-2023 End: 09-05-2023 ambulatory JENNIE H TIMMIS Not Available Start: 08-28-2023 End: 08-28-2023 ambulatory [facility] Work Phone: Start: 08-28-2023 End: 08-28-2023 Patient encounter procedure [facility] Work Phone: Start: 08-23-2023 Non-patient / Non-visit [facility] Work Phone: Start: 08-21-2023 End: 08-21-2023 ambulatory JENNIE H TIMMIS Not Available Start: 06-29-2023 End: 06-29-2023 ambulatory Jeff Jon Other [facility] Other Start: 06-29-2023 Telephone encounter Jeff Jon [facility] Start: 05-10-2023 End: 05-11-2023 ambulatory DO Casper Nguyen Facility:[facility] Start: 05-10-2023 End: 05-10-2023 Pain Management Casper Nguyen [facility] Start: 04-30-2023 End: 04-30-2023 ambulatory SHARON D HILLS Not Available Start: 04-24-2023 End: 04-24-2023 ambulatory SHARON D HILLS Not Available Start: 04-18-2023 End: 04-18-2023 ambulatory SHARON D HILLS Not Available Start: 04-04-2023 End: 04-04-2023 ambulatory Jeff Jon Other [facility] Other Start: 04-04-2023 Telephone encounter Jeff Jon [facility] [place] Start: 03-19-2023 End: 03-19-2023 ambulatory Christopher Mk Other [facility] Other Start: 03-19-2023 Office outpatient vi sit 15 minutes Christopher Mk [facility] Start: 02-22-2023 End: 02-22-2023 ambulatory Jeff Jon Other [facility] Other Start: 02-22-2023 Office outpatient vi sit 25 minutes [facility] Start: 11-24-2022 End: 11-24-2022 ambulatory Jeff Jon Other [facility] Other Start: 11-24-2022 Telephone encounter [facility] Start: 10-24-2022 End: 10-24-2022 ambulatory Lacie Manuel Other [facility] Other Start: 10-24-2022 Office outpatient vi sit 15 minutes Lacie Manuel [facility] Start: 10-17-2022 End: 10-17-2022 ambulatory Christopher Mk Other [facility] Other Start: 10-17-2022 Office outpatient vi sit 15 minutes Christopher Mk [facility] Start: 10-03-[address] Gela Moreau Facility: Start: 09-27-2022 Patient encounter procedure Jeff Jon Work Phone: [facility] [address] DO Work Phone: Start: 09-27-[address] Jeff Jon Facility: Start: 09-14-2022 Encounter for other preprocedural examination [facility] Start: 09-14-2022 Encounter for preprocedural cardiovascular examination [facility] Start: 09-14-2022 Encounter for preprocedural laboratory examination [facility] Start: 09-14-2022 Encounter for preprocedural respiratory examination [facility] Start: 09-13-2022 End: 09-13-2022 ambulatory Carlos Terrazas Other [facility] Other Start: 09-13-2022 Office outpatient vi sit 25 minutes Carlos Terrazas [facility] Start: 09-12-[address] JEFF JON Facilit y:[facility] Start: 09-08-2022 End: 09-09-2022 Encounter for preprocedural laboratory examination DR JEFF JON Facility:[facility] Start: 09-08-2022 End: 09-09-[address] JEFF JON [facility] Other Start: 09-08-2022 Telephone encounter Jeff Jon [facility] Start: 09-01-2022 End: 09-01-2022 ambulatory Jeff Jon Other [facility] Other Start: 09-01-2022 Telephone encounter Jeff Jon [facility] Start: 08-21-2022 End: 08-21-2022 ambulatory ANASTASIA WADE Facility:[facility] Start: 08-18-2022 End: 08-18-[address] Jeff Jon [facility] Other Start: 08-18-2022 Telephone encounter Jeff Jon [facility] Start: 08-17-2022 End: 08-17-2022 ambulatory MARCELL ASHLEY . Facility:[facility] Start: 08-14-2022 End: 08-14-2022 ambulatory Jeff Jon Other [facility] Other Start: 08-14-2022 Telephone encounter Jeff Jon [facility] Start: 08-11-2022 End: 08-11-2022 ambulatory Jeff Jon Other [facility] Other Start: 08-11-2022 Office outpatient vi sit 15 minutes Lacie Manuel [facility] Start: 08-11-2022 Telephone encounter Jeff Jon [facility] [place] Start: 08-07-2022 End: 08-07-2022 ambulatory Jeff Jon Other [facility] Other Start: 08-07-2022 Telephone encounter Jeff Jon [facility] [place] Start: 07-12-2022 End: 07-12-2022 ambulatory Jeff Jon Other [facility] Other Start: 07-12-2022 Office outpatient vi sit 25 minutes Jeff Jon [facility] [place] Start: 07-12-2022 Telephone encounter Jeff Jon [facility] [place] Start: 07-10-2022 End: 07-11-[address] JEFF JON Facility: Start: 06-14-2022 End: 06-14-2022 ambulatory Jeff Jon Other [facility] Other Start: 06-14-2022 Telephone encounter Jeff Jon [facility] Start: 06-07-2022 End: 06-07-2022 ambulatory Jeff Jon Other [facility] Other Start: 06-07-2022 Telephone encounter Jeff Jon [facility] [place] Start: 04-11-2022 End: 04-11-2022 ambulatory Jeff Jon Other [facility] Other Start: 04-11-2022 Office outpatient vi sit 25 minutes Jeff Jon [facility] [place] Start: 04-05-2022 End: 04-06-[address] JEFF JON Facility:[facility] Start: 04-04-2022 End: 04-04-2022 ambulatory Jeff Jon Other [facility] Other Start: 04-04-2022 Telephone encounter Jeff Jon [facility] [place] Start: 04-03-2022 End: 04-03-2022 ambulatory Jeff Jon Other [facility] Other Start: 04-03-2022 Telephone encounter Jeff Jon [facility] [place] Start: 03-21-2022 End: 03-21-2022 ambulatory Jeff Jon Other [facility] Other Start: 03-21-2022 Telephone encounter Jeff Jon [facility] [place] Start: 12-09-2021 End: 12-09-2021 ambulatory Jeff Jon Other [facility] Other Start: 12-09-2021 Telephone encounter Jeff Jon [facility] [place] Start: 12-06-2021 End: 12-06-2021 ambulatory Lorena Jacky Other [facility] Other Start: 12-06-2021 Office outpatient vi sit 25 minutes Lorena Jacky [facility] Start: 12-06-2021 Telephone encounter Lorena Jacky [facility] Start: 11-29-2021 End: 11-30-[address] JEFF JON Facility:[facility] Start: 10-20-2021 End: 10-20-2021 ambulatory Jeff Jon Other [facility] Other Start: 10-20-2021 Office outpatient vi sit 25 minutes Jeff Jon [facility] [place] Start: 10-13-2021 End: 10-13-2021 ambulatory JEFF JON Facility:[facility] Start: 10-13-2021 End: 10-13-2021 ambulatory Anila Jimenez APRN.[employer] MA[employer] Work Phone: Endocrinology Comment on above: Type 2 diabetes shreya itus with hyperglycemia, without long-term current use of insulin (HCC) (Primary Dx); Heraclio's disease Start: 10-13-2021 End: 10-13-2021 Telemedicine consultation with patient Anila Jimenez APRN.[employer] MANAGER Work Phone: [facility] Start: 10-13-2021 Telephone encounter Anila lee APRN.[employer] MANAGER Work Phone: Endocrinology Comment on above: Appointment Start: 10-07-2021 End: 10-08-2021 ambulatory JEFF JON Facility:[facility] Start: 10-07-2021 End: 10-07-2021 Patient encounter procedure Leena Seymour MD Work Phone: Rheumatology Comment on above: Fibromyalgia (Primar y Dx); ALDEN (generalized anxiety disorder) Start: 10-03-2021 Telephone encounter Asad adrian MD Work Phone: Endocrinology Comment on above: Lab Orders Start: 09-29-[address] JEFF JON Facilit y:[facility] Start: 09-28-2021 Telephone encounter Jeff Jon [facility] Start: 09-28-2021 End: 09-28-[address] JEFF JON [facility] Other Start: 09-20-2021 End: 09-20-2021 ambulatory Carlos Terrazas Other [facility] Other Start: 09-20-2021 Telephone encounter Carlos juárez [facility] Start: 08-22-2021 End: 08-22-2021 ambulatory Carlos Terrazas Other [facility] Other Start: 08-22-2021 Telephone encounter [facility] Start: 07-22-2021 End: 07-22-2021 ambulatory ASAD ANSARI Facility:[facility] Start: 07-14-2021 End: 07-14-2021 ambulatory Jeff Jon Other [facility] Other Start: 07-14-2021 Telephone encounter Jeff Jon [facility] Start: 07-04-2021 End: 07-04-2021 ambulatory Jeff Jon Other [facility] Other Start: 07-04-2021 Telephone encounter Jeff Jon [facility] [place] Start: 06-28-2021 End: 06-28-2021 ambulatory Jeff Jon Other [facility] Other Start: 06-28-2021 Telephone encounter Jeff Jon [facility] [place] Start: 06-22-2021 Telephone encounter Asad adrian MD Work Phone: Endocrinology Comment on above: Patient Question Start: 06-16-2021 End: 06-17-2021 ambulatory JEFF JON Facility:[facility] Start: 06-16-2021 End: 06-17-2021 ambulatory ASAD ANSARI Facility:[facility] Start: 05-25-2021 End: 05-25-2021 ambulatory Jeff Jon Other [facility] Other Start: 05-25-2021 Telephone encounter Jeff Jon [facility] Start: 05-11-2021 End: 05-11-2021 ambulatory Jeff Jon Other [facility] Other Start: 05-11-2021 Telephone encounter Jeff Jon [facility] [place] Start: 04-27-2021 End: 04-27-2021 ambulatory Jeff Jon Other [facility] Other Start: 04-27-2021 Telephone encounter Jeff Jon [facility] Start: 04-19-2021 End: 04-19-2021 ambulatory Carl Valdivia Other [facility] Other Start: 04-19-2021 Telephone encounter Carl Skip T[facility]ia [facility] Start: 03-16-2021 Telephone encounter Vandana Root [facility] Start: 03-15-2021 Office outpatient vi sit 15 minutes Jeff Jon [facility] Start: 02-24-2021 Telephone encounter Jeff Jon [facility] Start: 02-21-2021 Office outpatient vi sit 15 minutes Carlos Terrazas [facility] Start: 09-26-2018 End: 09-29-2018 Patient encounter procedure JEFF JON [facility] ([place], [place]) Procedures Date Procedure Procedure Detail Performing Clinician Start: 12-05-2023 X-ray of lumbar spin e, four views DO Jeff Jon Work Phone: Start: 12-05-2023 Plain x-ray of [...] Author Start: 06-16-2024 DIABETES SCREEN DIABETES SCREEN [facility] Start: 04-11-2024 Patient referral [facility] Work Phone: Start: 09-26-2023 Patient referral [facility] Work Phone: Start: 10-06-2022 Adult depression screening assessment DEPRESSION SCREENING [facility] Start: 04-09-2022 Hemoglobin A1c/Hemoglobin.total in Blood HBA1C [facility] Start: 01-19-2022 Influenza vaccination INFLUENZA (#1) [facility] Start: 11-25-2021 End: 01-25-2022 T3 FREE BLD T3 FREE BLD Lab Routine Heraclio's disease Expected: 11/25/2021, Expires: 01/25/2022 [facility] Work Phone: Comment on above: Expected: 11/25/2021 , Expires: 01/25/2022 Start: 11-25-2021 End: 01-25-2022 T4 FREE/FREE THYROX T4 FREE/FREE THYROX Lab Routine Heraclio's disease Expected: 11/25/2021, Expires: 01/25/2022 [facility] Work Phone: Comment on above: Expected: 11/25/2021 , Expires: 01/25/2022 Start: 11-25-2021 End: 01-25-2022 Thyrotropin [Units/volume] in Serum or Plasma TSH BLD Lab Routine Heraclio's disease Expected: 11/25/2021, Expires: 01/25/2022 [facility] Work Phone: Comment on above: Expected: 11/25/2021 , Expires: 01/25/2022 Start: 10-07-2021 End: 12-07-2021 PROTEIN ELECTROPHORESIS SERUM W/INTERP [facility] Work Phone: Comment on above: Expected: 10/07/2021 , Expires: 12/07/2021 Start: 10-05-2021 End: 12-05-2021 Comprehensive metabolic 2000 panel - Serum or Plasma COMP METABOLIC PANEL Lab Routine Controlled type 2 diabetes mellitus without complication, without long-term current use of insulin (HCC) Expected: 10/05/2021, Expires: 12/05/2021 [facility] Work Phone: Comment on above: Expected: 10/05/2021 , Expires: 12/05/2021 Start: 10-05-2021 End: 12-05-2021 Hemoglobin A1c/Hemoglobin.total in Blood HGB A1C Lab Routine Controlled type 2 diabetes mellitus without complication, without long-term current use of insulin (HCC) Expected: 10/05/2021, Expires: 12/05/2021 [facility] Work Phone: Comment on above: Expected: 10/05/2021 , Expires: 12/05/2021 Start: 10-05-2021 End: 12-05-2021 T3 FREE BLD T3 FREE BLD Lab Routine Acquired hypothyroidism Expected: 10/05/2021, Expires: 12/05/2021 [facility] Work Phone: Comment on above: Expected: 10/05/2021 , Expires: 12/05/2021 Start: 10-05-2021 End: 12-05-2021 T4 FREE/FREE THYROX T4 FREE/FREE THYROX Lab Routine Acquired hypothyroidism Expected: 10/05/2021, Expires: 12/05/2021 [facility] Work Phone: Comment on above: Expected: 10/05/2021 , Expires: 12/05/2021 Start: 10-05-2021 End: 12-05-2021 Thyrotropin [Units/volume] in Serum or Plasma TSH BLD Lab Routine Acquired hypothyroidism Expected: 10/05/2021, Expires: 12/05/2021 [facility] Work Phone: Comment on above: Expected: 10/05/2021 , Expires: 12/05/2021 Start: 05-21-2021 DEPRESSION ASSESSMENT DEPRESSION ASS ESSMENT [facility] Start: 02-23-2021 COVID-19 VACCINE (3 - Booster for Pfizer series) COVID-19 VACCINE (3 - Booster for Pfizer series) [facility] Start: 11-18-2020 COVID-19 VACCINE (3 - Booster for Pfizer series) COVID-19 VACCINE (3 - Booster for Pfizer series) [facility] Start: 09-10-2017 SHINGRIX VACCINE (1 of 2) MONDRAGON GRIX VACCINE (1 of 2) [facility] Start: 09-10-2012 COLOGUARD (FIT-DNA) COLOGUARD (FIT-D NA) [facility] Start: 09-10-2012 Colonoscopy COLONOSCOPY [facility] Start: 09-10-2012 COLORECTAL CANCER SCREENING COLORECTAL CANCER SCREENING [facility] Start: 09-10-[address] COLONOGRAPHY [facility] Start: 09-10-2012 FECAL OCCULT BLOOD FECAL OCCULT BLOO D [facility] Start: 09-10-2012 LIPID SCREEN LIPID SCREEN [facility] Start: 09-10-2012 SIGMOIDOSCOPY SIGMOIDOSCOPY [facility] Start: 2007 Mammography MAMMOGRAM [facility] Start: 09-10-1997 HPV TESTING HPV TESTING [facility] Start: 09-10-1988 PAP TESTING PAP TESTING [facility] Start: 09-10-1986 HEPATITIS B (1 of 3 - Risk 3-dose series) HEPATITIS B (1 of 3 - Risk 3-dose series) [facility] Start: 09-10-1986 Urine microalbumin profile DTAP,TDAP,TD (1 - Tdap) [facility] Start: 09-10-1985 ANNUAL PCP TEAM STRAW BOSS KRYSTAL DISEASE VISIT ANNUAL PCP TEAM CHRONIC DISEASE VISIT [facility] Start: 09-10-1985 Hepatitis B surface antibody level LDL CHOLESTEROL [facility] Start: 09-10-1985 HIV SCREENING HIV SCREENING [facility] Start: 1979 Adult depression screening assessment DEPRESSION SCREENING [facility] Start: 09-10-1977 3 comp foot exam completed DIABETIC FOOT EXAM [facility] Start: 09-10-1977 Hepatitis B screening URINE AL BUMIN:CREATININE RATIO [facility] Start: 09-10-1977 Hepatitis C antibody , confirmatory test DILATED RETINAL EXAM [facility] Start: 09-10-1973 PNEUMOCOCCAL (1 - PCV) PNEUMOCOCCAL (1 - PCV) [facility] Start: 1967 HEPATITIS B (1 of 3 - 3-dose series) HEPATITIS B (1 of 3 - 3-dose series) [facility] Comprehensive metabo lic 2000 panel - Serum or Plasma [facility] Comprehensive metabo lic 2000 panel - Serum or Plasma [facility] Patient referral [facility] Work Phone: Urine culture [facility] XR Hip - left 2 Views [facility] XR Hip - right 2 Views [facility] XR Lumbar spine 4 Views [facility] XR Shoulder - left Views [facility] Immunizations Immunization Date Immunization Notes Care Provider Bryon cuenca 03-15-2021 influenza, seasonal, injectable Patient Objection Vandana Jordan Other [facility] Other 09-23-2020 COVID-19 Vaccine Pfizer - Documentation Purposes Only Carlos Mk Other [facility] 09-02-2020 COVID-19 Vaccine Pfizer - Documentation Purposes Only Carlos Mk Other [facility] 09-09-2018 Rocephin 500 mg Carlos Mk Other [facility] Other 08-11-2016 Toradol per 15 mg Jose Enrique r Mk Other [facility] Other 02-09-2015 TB Test Ryleykirby PhillipsMk Other [facility] Other 12-16-2011 tetanus toxoid, reduced diphtheria toxoid, and acellular pertussis vaccine, adsorbed Ryleykirby Mk Other [facility] NEGATED: Highlighted row has not occurred! 1 influenza, seasonal, injectable Patient Objection Jeff Jon Other [facility] Payers Date Payer Category Payer Self-pay [id number] 2020 Private Health Insurance AETNA A ETNA CHOICE POS II [id number] 2020-Present [phone] [address] [place] [address] POS [id number]. [id number] 2020 Private Health Insurance [id number]. [id number] 2018 Unknown [id number] 1967 Unknown [id number] 2.16.840.1.205377.3.579.2. 182 1967 Unknown [id number] 2.16.840.1.263104.3.579.2. 593 1967 Unknown [id number] 2.16.840.1.189320.3.579.2. 593 1967 Unknown [id number] 2.16.840.1.555530.3.579.2. 593 1967 Unknown [id number] 2.16.840.1.821482.3.579.2. 593 1967 Unknown [id number] 2.16.840.1.079606.3.579.2. 593 1967 Unknown [id number] 2.16.840.1.318598.3.579.2. 593 1967 Unknown [id number] 2.16.840.1.890090.3.579.2. 593 1967 Unknown [id number] 2.16.840.1.428112.3.579.2. 593 1967 Unknown [id number] 2.16.840.1.528052.3.579.2. 593 1967 Unknown [id number] 2.16.840.1.836818.3.579.2. 356 1967 Unknown [id number] 2.16.840.1.033026.3.579.2. 356 1967 Unknown [id number] 2.16.840.1.832509.3.579.2. 356 1967 Unknown [id number] 2.16.840.1.076176.3.579.2. 727 1967 Unknown [id number] 2.16.840.1.917517.3.579.2. 1259 1967 Unknown [id number] 2.16.840.1.107234.3.579.2. 1259 1967 Unknown [id number] 2.16.840.1.920191.3.579.2. 9 1967 Unknown [id number] 2.16.840.1.594966.3.579.2. 1258 1967 Unknown [id number] 2.16.840.1.633629.3.579.2. 1258 1967 Unknown [id number] 2.16.840.1.471195.3.579.2. 1258 1967 Unknown [id number] 2.16.840.1.519333.3.579.2. 1258 1967 Unknown [id number] 2.16.840.1.195088.3.579.2. 1258 1967 Unknown [id number] 2.16.840.1.215548.3.579.2. 1258 1967 Unknown [id number] 2.16.840.1.031342.3.579.2. 1967 Unknown [id number] 2.16.840.1.808532.3.579.2. 1967 Unknown [id number] 2.16.840.1.347650.3.579.2. 1967 Unknown [id number] 2.16.840.1.245766.3.579.2. 196 1959 Private Health Insurance [id number] 2.16.840.1.825664.19 Unknown AETNA Private Health Insurance [id number] Unknown [id number] 2.16.840.1.011587.3.579.2. 531 Social History Date Type Detail Facility Start: 09-20-2015 End: 08-28-2023 Tobacco smoking status NHIS Never smoked tobacco [facility] Start: 09-20-2015 Tobacco use and exposure Smokeless tobacco non-user [facility] Start: 06-16-2021 End: 10-07-2021 Alcohol intake Not Asked [facility] Start: 1965 Sex Assigned At Female [facility] Start: 09-23-2021 End: 10-07-2021 Exposure to SARS-CoV-2 (event) Not sure [facility] Start: 10-13-2021 Alcohol intake Ex-drinker (finding) [facility] Start: 10-13-2021 History SDOH Alcohol Comment rarely [facility] Assigned At [facility] Start: 06-03-2024 End: 06-13-2024 Sex Female (finding) [facility] Functional Status Date Assessment Result Facility 05-10-2023 Functional Status N/A [facility] Clinical Notes 12-16-2011 to 04-11-2024 Note Date & Type Note Facility 04-11-2024 Evaluation note Authored April 11, 2024 4:16pm I performed the above HPI, R OS, and Examination. I formulated and dictated the treatment plan and was present for entire encounter. Jeff Jon D.O. [facility] Work Phone: [phone]) 287-277006-10-2024 Evaluation note* Author Jeff Jon [facility] Authored October 29, 2023 3:26 pm The above note written by __ _Gail Saul____ acting as human recorder, note dictated by Dr. Jones .I performed the above HPI, ROS, and Examination. I formulated and dictated the treatment plan and was present for entire encounter. Jeff [facility].O. [facility] Authored September 26, 2023 3:16pm The above note written by __ _Gail Saul____ acting as human recorder, note dictated by Dr. Jones .I performed the above HPI, ROS, and Examination. I formulated and dictated the treatment plan and was present for entire encounter. Jeff Jon D.O. [facility] Work Phone: [phone]) 907-753706-10-2024 Evaluation note* [facility] Authored October 29, 2023 3:26 pm The above note written by __ _Gail Saul____ acting as human recorder, note dictated by Dr. Jones .I performed the above HPI, ROS, and Examination. I formulated and dictated the treatment plan and was present for entire encounter. Jeff Jon D.O. [facility] Work Phone: 1(382) 211-182605-08-2024 Hospital Discharge instructionsAmbulatory Orders* Referral to Pain Management Time Frame: 09/26/23, Location: None Selected [facility] Work Phone: 1(433) 601-931404-09-2024 Evaluation note* Author Jeff Jon [facility] Authored August 28, 2023 11:5 9am The above note written by __ _Gail Saul____ acting as human recorder, note dictated by Dr. Jones .I performed the above HPI, ROS, and Examination. I formulated and dictated the treatment plan and was present for entire encounter. Jeff Jon D.O. [facility] Work Phone: 1(180) 742-317304-09-2024 Evaluation note* Author Jeff Jon [facility] Authored August 28, 2023 11:5 9am The above note written by __ _Gail Saul____ acting as human recorder, note dictated by Dr. Jones .I performed the above HPI, ROS, and Examination. I formulated and dictated the treatment plan and was present for entire encounter. Jeff Jon D.O. Author [facility] Authored September 26, 2023 3:16pm The above note written by __ _Gail Saul____ acting as human recorder, note dictated by Dr. Jones .I performed the above HPI, ROS, and Examination. I formulated and dictated the treatment plan and was present for entire encounter. Jeff Jon D.O. [facility] Work Phone: 1(148) 480-729402-09-2024 Evaluation note* Encounter Date Diagnosis Assessment Notes Treatment Notes Treatment Clinical Notes Jun, Elevated blood pressure (ICD-10 - R03.0) [facility] Other 12-21-2023 Evaluation + Plan noteExtracted from: [...] - K21.9) Mar, Asthma (ICD-10 - J45.909) [facility] Other 10-30-2023 Evaluation note* Encounter Date Diagnosis Assessment Notes Treatment Notes Treatment Clinical Notes Feb, Asthma (ICD-10 - J45.909) Feb, Seasonal allergies (ICD-10 - J30.2) Feb, GERD (gastroesophageal reflux disease) (ICD-10 - K21.9) [facility] Other 10-05-2023 Evaluation note* Encounter Date Diagnosis [...] take the medication. She is going to [place] next week, so she will not make [...] (ICD-10 - K21.9) Continue to follow with assembly line brazer and take above medication as directed. Feb, Other long winder tender (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 (ICD-10 - Z79.899) Feb, [...] 27.0. She did try to contact her business continuity global director who prescribed the once weekly dose to [...] variant or something in the balance center. [facility] Other 06-06-2023 Evaluation note* Encounter Date Diagnosis [...] understanding and is agreeable to treatment plan. [facility] Other 05-30-2023 Evaluation note* Encounter Date Diagnosis Assessment Notes Treatment Notes Treatment Clinical Notes September, Asthma (ICD-10 - J45.909) September, Seasonal allergies (ICD-10 - J30.2) September, GERD (gastroesophageal reflux disease) (ICD-10 - K21.9) [facility] Other 04-26-2023 Evaluation note* Encounter Date Diagnosis Assessment Notes Treatment Notes Treatment Clinical Notes Aug, Asthma (ICD-10 - J45.909) Aug, Seasonal allergies (ICD-10 - J30.2) Aug, GERD (gastroesophageal reflux disease) (ICD-10 - K21.9) [facility] Other 03-24-2023 Evaluation note* Encounter Date Diagnosis [...] water inside ear after shower may use astronomy department chair on lowest cool setting to blow dry. Follow up with PCP or UC if no improvement in the next 2-3 days. Immediate eval for severe ear pain, severe headache, neck pain/stiffness, pain, erythema, or swelling behind the ear, fever, N/V, hearing loss, fever, or any other new or concerning symptoms. Patient verbalizes understanding and is agreeable to treatment plan. [facility] Other 03-20-2023 Evaluation note* Encounter Date Diagnosis [...] Other 10:38 AM - 10:4 6 AM [facility] Other 02-22-2023 Evaluation note* Encounter Date Diagnosis Assessment Notes Treatment Notes Treatment Clinical Notes Jun, Elevated blood pressure (ICD-10 - R03.0) [facility] Other 02-22-2023 Evaluation note* Encounter Date Diagnosis [...] above medication daily as directed. Jun, Other long winder tender (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 (ICD-10 - Z79.899) Jun, [...] her to discuss this pain with her YARD CALLER when seen in July (2022) and her gastro doctor when she has the colonoscopy. She voices that she had endometriosis in the past and was told it could return, this does feel similar to that, so she will discuss it with her business continuity global director. Jun, Elevated blood pressure (ICD-10 - R03.0) [...] the intestine. She is following with a LOAN PROCESSING SUPERVISOR (Cass Cheney) in [place], [place]. She has to do a stool [...] do this. She has not seen an YARD CALLER in a year and a half but [...] I did recommend she buy [place] [facility] and apply this to her hands at night. [facility] Other 01-25-2023 Evaluation note* Encounter Date Diagnosis Assessment Notes Treatment Notes Treatment Clinical Notes May, Asthma (ICD-10 - J45.909) [facility] Other 11-22-2022 Evaluation note* Encounter Date Diagnosis Assessment Notes Treatment Notes Treatment Clinical Notes Mar, Hypothyroidism, unspecified (ICD-10 - E03.9) She voices that she is not going to return to see the president college or university for evaluation. She voices that her results [...] once weekly that was ordered by her YARD CALLER and she would like this office to take over filling this prescription. I will order a Vitamin D level to be done in three months. Mar, Other long winder tender (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 (ICD-10 - Z79.899) Mar, [...] She agrees and a referral is provided. [facility] Other 11-01-2022 Evaluation note* Encounter Date Diagnosis Assessment Notes Treatment Notes Treatment Clinical Notes Mar, Hypothyroidism, unspecified (ICD-10 - E03.9) [facility] Other 11-01-2022 Evaluation note* Encounter Date Diagnosis Assessment Notes Treatment Notes Treatment Clinical Notes Mar, Asthma (ICD-10 - J45.909) Mar, GERD (gastroesophageal reflux disease) (ICD-10 - K21.9) [facility] Other 07-19-2022 Evaluation note* Encounter Date Diagnosis Assessment Notes Treatment Notes Treatment Clinical Notes Nov, Asthma (ICD-10 - J45.909) Nov, Seasonal allergies (ICD-10 - J30.2) [facility] Other 06-02-2022 Evaluation note* Encounter Date Diagnosis [...] Prednisone two times and antibiotics by Dr. eTrrazas. She feels that her breathing/lungs are noisy [...] Again, she voices that she saw the president college or university recently and was on 2 of the [...] the Fluticasone nasal spray daily. Oct, Other long winder tender (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 (ICD-10 - Z79.899) Oct, [...] can return to discuss this if needed. [facility] Other 05-26-2022 NoteHNO ID: [id number] Author: Anila Jimenez APRN.[facility] Service: ? Author Type: Nurse Practitioner Type: Progress Notes Filed: 10/13/2021 4:47 PM Note Text: ENDOCRINOLOGY, DIABETES AND METABOLISM DIABETES FOLLOW UP VISIT This Team Access Model visit is a phone encounter and Canelo Pathak has consented to this virtual encounter. This is a virtual visit using [employer] video visit. It is a required patient-provider [...] daily. - mometasone furoate(NASONEX 50 MCG/ACTUATION SPRAY) [place] twice in each nostril once daily. - cetirizine hcl(ZYRTEC 10 MG TAB) Take one(1) tablet daily. - fluticasone/salmeterol(ADVAIR DISKUS 250 MCG-50 MCG/DOSE FOR INHALATION) Take one(1) inhalation twice daily; rinse and gargle mouth with water after each use. No current facility-administered medications for this visit. Immunization History Administered Date(s) Administered COVID-19 vaccine, age 12+ yr ([employer] - PURPLE [employer]) 09/02/2020 09/23/2020 Social History [...] >=60 mL/min/1.73m? 103 Corrected (more content not included)...[facility]05-26-2022 History of Present illness Narrative* Anila Jimenez APRN.HAIR SALON MANAGER - 10/13/2021 4:15 PM EDT ENDOCRINOLOGY, DIABETES & METABOLISM DIABETES FOLLOW UP VISIT This Team Access Model visit is a phone encounter and Canelo Pathak has consented to this virtual encounter. This is a virtual visit using [employer] video visit. It is a required patient-provider [...] capsule daily. mometasone furoate(NASONEX 50 MCG/ACTUATION SPRAY) [place] twice in each nostril once daily. cetirizine hcl(ZYRTEC 10 MG TAB) Take one(1) tablet daily. fluticasone/salmeterol(ADVAIR DISKUS 250 MCG-50 MCG/DOSE FOR INHALATION) Take one(1) inhalation twice daily; rinse and gargle mouth with water after each use. No current facility-administered medications for this visit. Immunization History Administered Date(s) Administered COVID-19 vaccine, age 12+ yr ([employer] - PURPLE [facility]) 09/02/2020 09/23/2020 Social History Tobacco Use Smoking [...] which included preparing to see the patient, [id number] patient care, completing clinical documentation, obtaining and/or reviewing separately obtained history, performing a medically appropriate examination, counseling and educating the pat ient/family/caregiver and ordering medications, tests, or procedures. Anila Jimenez APRN.[facility] Endocrine and Metabolism [place] [facility] NoteHNO ID: [id number] Author: Leena Seymour MD Service: ? Author [...] mcg (5,000 unit) cap - Vitamin D [place] ([employer]) Take 1 capsule by mouth daily with food. - montelukast (SINGULAIR) 10 mg tablet Take 10 mg by mouth daily at bedtime. - MULTIVIT-MINERALS/FERROUS GLUC (CENTRAM-CARE ORAL) Take by mouth twice daily. - esomeprazole mag trihydrate(NEXIUM 40 MG CAP) Take one(1) capsule daily. - mometasone furoate(NASONEX 50 MCG/ACTUATION SPRAY) [place] twice in each nostril once daily. - [...] effexor. Will check routine labs. Leena Seymour [facility] [place]05-20-2022 History of Present illness Narrative* Leena Seymour [...] 125 mcg (5,000 unit) cap Vitamin D [place] ([employer]) Take 1 capsule by mouth daily with food. montelukast (SINGULAIR) 10 mg tablet Take 10 mg by mouth daily at bedtime. MULTIVIT-MINERALS/FERROUS GLUC (CENTRAM-CARE ORAL) Take by mouth twice daily. esomeprazole mag trihydrate(NEXIUM 40 MG CAP) Take one(1) capsule daily. mometasone furoate(NASONEX 50 MCG/ACTUATION SPRAY) [place] twice in each nostril once daily. cetirizine [...] labs. Leena Seymour MD [facility] Miscellaneous Notes* Telephone Encounter - Renea Mcfarland Ict Sales Assistant - 10/03/2021 3:02 PM EDT Patient called in asking for routine lab orders to be placed. Patient stated she will schedule her appointment soon. Done. Asad Ansari MD documented in [facility]-04-2022 NoteHNO ID: [id number] Author: Asad Ansari MD Service: ? Author Type: Physician Type: Progress Notes Filed: 07/22/2021 10:43 AM Note Text: VIRTUAL VISIT PROGRESS NOTE This is a virtual visit using [employer] video platform. It required patient-provider interaction for [...] mcg (5,000 unit) cap - Vitamin D [place] ([employer]) Take 1 capsule by mouth daily with food. - montelukast (SINGULAIR) 10 mg tablet Take 10 mg by mouth daily at bedtime. - MULTIVIT-MINERALS/FERROUS GLUC (CENTRAM-CARE ORAL) Take by mouth twice daily. - esomeprazole mag trihydrate(NEXIUM 40 MG CAP) Take one(1) capsule daily. - mometasone furoate(NASONEX 50 MCG/ACTUATION SPRAY) [place] twice in each nostril once daily. - [...] Date(s) Administered COVID-19 vaccine, age 12+ yr ([employer] - [employer]) 09/23/2020 Labs: HbA1c. TSH. [...] 2 months - virt (more content not included)...[facility] [place] Evaluation note* Encounter Date Diagnosis Assessment Notes Treatment Notes Treatment Clinical Notes Jun, Lumbar pain (ICD-10 - M54.50) Jun, Leg pain (ICD-10 - M79.606) bilateral Jun, Hyperlipidemia (ICD-10 - E78.5) [facility] Other 02-02-2022 Miscellaneous Notes* Telephone Encounter - Neema Adams - 06/22/2021 9:09 AM EST Patient called in requesting the results of her labs that she had completed on 06/16/2021 Canelo can be reached at [phone] (C) or can be reached through [employer]. [facility] NoteHNO ID: [id number] Author: Asad Ansari MD Service: ? Author Type: Physician Type: Progress Notes Filed: 06/16/2021 1:56 PM Note Text: Last Visit: This is the first visit. Ms. Pathak is here for follow up regarding her DM Type 2 and hypothyroidism. Current Immunizations: Most Recent Immunizations Administered Date(s) Administered COVID-19 vaccine, age 12+ yr ([email or web address] - PURPLE TOP) 09/23/2020 PHYSICAL EXAMINATION: BP [...] mouth daily before breakfast. - Vitamin D [place] ([employer] for [employer]) Take 1 capsule by mouth daily with food. - montelukast (SINGULAIR) 10 mg tablet Take 10 mg by mouth daily at bedtime. - MULTIVIT-MINERALS/FERROUS GLUC (CENTRAM-CARE ORAL) Take by mouth twice daily. - esomeprazole mag trihydrate(NEXIUM 40 MG CAP) Take one(1) capsule daily. - mometasone furoate(NASONEX 50 MCG/ACTUATION SPRAY) [place] twice in each nostril once daily. - [...] Hair?: Yes Cold Intolerance: Yes Heat Int[facility] [place]* Encounter Date Diagnosis Assessment Notes Treatment Notes Treatment Clinical Notes Apr, Diabetes (ICD-10 - E11.9) [facility] Other 10-27-2021 Evaluation note* Encounter Date Diagnosis Assessment Notes Treatment Notes Treatment Clinical Notes Feb, Hypothyroidism, unspecified (ICD-10 - E03.9) Feb, Polyarthralgia (ICD-10 - M25.50) [facility] Other 10-26-2021 Evaluation note* Encounter Date Diagnosis [...] to check her thyroid levels. Feb, Other intermediate (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 (ICD-10 - Z79.899) Feb, [...] says by 5-6 weeks it was gone. [facility] Other 10-07-2021 Evaluation note* Encounter Date Diagnosis Assessment Notes Treatment Notes Treatment Clinical Notes Feb, Bronchitis (ICD-10 - J40) [facility] Other 10-04-2021 Evaluation note* Encounter Date Diagnosis Assessment Notes Treatment Notes Treatment Clinical Notes Feb, Asthma (ICD-10 - J45.909) Feb, GERD (gastroesophageal reflux disease) (ICD-10 - K21.9) Feb, Seasonal allergies (ICD-10 - J30.2) [facility] Other 07-28-2012 History general Narrative - Reported* Type Description Date Medical History asthma Medical History 12/16/11 Right hand x-ray Medical History 12/16/11 Blood work Lipid, CMP, CBC, T4, TSH, HGA1C (6.3) Medical History 03/11/12-stress test at [facility] Medical History Hypothyroidism Medical History 2015 mammogram Medical History 12/21/15 EKG Medical History 12/29/15 Stress Test [facility] Surgical History tonsillectomy and adenoidectomy 1977 Surgical History cholecystectomy 08/2008 Surgical History gall bladder 08/2008 Surgical History tubes in ears Surgical History laproscopic fibroid removal Surgical History hysterectomy-total Surgical History mammogram [facility] - Dr Alvarez 07/17/17 Surgical History ERCP 09/17/17 Hospitalization History gall bladder 08/2008 Hospitalization History tonsillectomy Hospitalization History tubes in ears Hospitalization History heart(over night opserva tion) 08/2007 Hospitalization History pneumonia 1999 Hospitalization History abnormal liver function test 2017 [facility] Other 07-28-2012 History general Narrative - Reported* Type Description Date Medical History asthma Medical History 12/16/11 Right hand x-ray Medical History 03/11/12-stress test at [facility] Medical History Hypothyroidism Medical History 2015 mammogram Medical History 12/21/15 EKG Medical History 12/29/15 Stress Test [facility] Surgical History tonsillectomy and adenoidectomy 1977 Surgical History cholecystectomy 08/2008 Surgical History gall bladder 08/2008 Surgical History tubes in ears Surgical History laproscopic fibroid removal Surgical History hysterectomy-total Surgical History mammogram [facility] - Dr Alvarez 07/17/17 Surgical History ERCP 09/17/17 Hospitalization History gall bladder 08/2008 Hospitalization History tonsillectomy Hospitalization History tubes in ears Hospitalization History heart(over night opserva tion) 08/2007 Hospitalization History pneumonia 1999 Hospitalization History abnormal liver function test 2017 [facility] Other 07-28-2012 History general Narrative - Reported* Type Description Date Medical History asthma Medical History 12/16/11 Right hand x-ray Medical History 03/11/12-stress test at [facility] Medical History Hypothyroidism Medical History 2016 mammogram Medical History 12/21/15 EKG Medical History 12/29/15 Stress Test [facility] Medical History spinal stenosis Surgical History tonsillectomy and adenoidectomy 1977 Surgical History cholecystectomy 08/2008 Surgical History gall bladder 08/2008 Surgical History tubes in ears Surgical History laproscopic fibroid removal Surgical History hysterectomy-total Surgical History mammogram [facility] - Dr Alvarez 07/17/17 Surgical History ERCP 09/17/17 Hospitalization History gall bladder 08/2008 Hospitalization History tonsillectomy Hospitalization History tubes in ears Hospitalization History heart(over night opserva tion) 08/2007 Hospitalization History pneumonia 1999 Hospitalization History abnormal liver function test 2017 [facility] Other Evaluation note* Diagnosis Acquired hypothyroidism- Primary Unspecified hypothyroidism Controlled type 2 diabetes mellitus without complication, without long-term current use of insulin (HCC) documented in this encounter [facility] note* Diagnosis Fibromyalgia- Primary Mylagia and myositis, unspecified [place] (generalized anxiety disorder) Generalized anxiety disorder documented in this encounter [facility] note* Diagnosis Type 2 diabetes mellitus with hyperglycemia, without long-term current use of insulin (HCC)- Primary Heraclio's disease Chronic lymphocytic thyroiditis documented in this encounter [facility] noteNo InformationNort [employer] Other Evaluation [employer]NoBall[employer] Other evaluation note* Diagnosis Onset Date Resolution Status Anxiety acute Asthma acute Diabetes acute Elevated blood pressure reading acute Fatigue acute GERD (gastroesophageal reflux disease) acute Hyperlipidemia acute Hypothyroidism acute Other chronic pain acute Other long winder tender (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 acute Palpitation acute Vitamin D deficiency acute [facility] Work Phone: Evaluation note* Diagnosis Onset Date Resolution Status Chronic pain acute Hip pain acute Lumbar stenosis acute Sacroiliitis acute Chronic pain acute Hip pain acute Lumbar radiculopathy acute Lumbar stenosis acute Sacroiliitis acute Chronic pain acute Lumbar radiculopathy acute Lumbosacral spondylosis acut e Sacroiliitis acute [facility] Work Phone: Evaluation note* Diagnosis Onset Date Resolution Status Chronic pain acute Hip pain acute Lumbar stenosis acute Sacroiliitis acute Chronic pain acute Hip pain acute Lumbar radiculopathy acute Lumbar stenosis acute Sacroiliitis acute Chronic pain acute Lumbar radiculopathy acute Lumbosacral spondylosis acut e Sacroiliitis acute Chronic pain acute Lumbar radiculopathy acute Lumbosacral spondylosis acut e Sacroiliitis acute [facility] Work Phone: Evaluation note* Diagnosis Onset Date Resolution Status Chronic pain acute Lumbar radiculopathy acute Lumbosacral spondylosis acut e Sacroiliitis acute Chronic pain acute Lumbar radiculopathy acute Lumbosacral spondylosis acut e Sacroiliitis acute Asthma acute GERD (gastroesophageal reflux disease) acute Seasonal allergies acute [facility] Work Phone: Hisxksz general Narrative - ReportedNoConemaugh [facility] [employer] Other Hismjqp general Narrative - Reported* Type Description Date [...] removal Surgical History hysterectomy-total Surgical History mammogram [facility] - Dr Alvarez 07/17/17 Surgical History ERCP 09/17/17 Hospitalization History gall bladder 08/2008 Hospitalization History tonsillectomy Hospitalization History tubes in ears Hospitalization History heart(over night opserva tion) 08/2007 Hospitalization History pneumonia 1999 Hospitalization History abnormal liver function test 2017 [facility] [employer] Other Hishyin general Narrative - Reported* Type Description Date [...] removal Surgical History hysterectomy-total Surgical History mammogram [facility] - Dr Alvarez 07/17/17 Surgical History ERCP 09/17/17 Hospitalization History gall bladder 08/2008 Hospitalization History tonsillectomy Hospitalization History tubes in ears Hospitalization History heart(over night opserva tion) 08/2007 Hospitalization History pneumonia 1999 Hospitalization History abnormal liver function test 2017 [facility] [employer] Other Hospital course Narrative No data available for this section [facility] instructions No data available for this section [facility] No data available for this section [facility]Reason for visit Narrativereview labs, discuss multiple issues, see treatment plan for further informationNortTorrance State Hospital [employer] Other Reason for visit Narrativereview labs, discuss multiple issues, see treatment planNofreeman [facility] [employer] Other Summary Purpose Family History Relationship Condition [...] stroke Unknown grandparent Hypertension Unknown mother Unknown Relationship Condition Age at Onset Recorded Date/T erlin brother Hypertension Unknown father History of stroke Unknown Hypertension Unknown Heart disease Unknown Diabetes mellitus Unknown Unknown Renal failure Unknown grandparent Diabetes mellitus Unknown grandparent Hypertension Unknown mother Unknown Advance Directives Advance Directive Response Recorded Date/ Time Advance Directives No September 14 018 9:20pm Advance Directive Response Recorded Date/ Time Advance Directives No September 14 018 8:20pm Reason for Referral Specialty Diagnoses / Procedures Referred By Rosa mcelroy Referred To Contact [facility] [place] Diagnoses Fibromyalgia Procedures [facility]SULT TO [facility] ([facility]IN) OFFICE/OUTPATIENT [facility] 60-74 MINUTES Leena Seymour MD [address] [place] [address] Referral ID Status Reason Start Date Expiration Date Visits Requested Visits Authorized [id number] Pending Review PCP Requested Referral 10/07/2021 10/07/2022 1 1 Reason appt pt needs cons ult to discuss weight loss, diabetes Diagnosis 1 Diabetes (E11.9) Referral Organization [facility] Family Medicin e Saman Referring Provider First Name Jeff Referring Provider Last Name Dontrell Referring Provider Specialty Family Prac debbi Referred Organization [facility] Referred Provider Carl Valdivia Jr. Referred Address [address],[facility] [facility] [address],[place], [place],[address] Referred Provider Specialty Internal Med icine Referral Priority Routine General Notes Svetlana Talbert 03/15/2021 01:33:19 PM > [facility] form faxed. pt understands she will be contacted to schedule the appt Reason appt pt needs scre ening colonoscopy Diagnosis 1 Colon cancer screeni ng (Z12.11) Referral Organization [facility] Family Medicin cornelia Davison Referring Provider First Name Jeff Referring Provider Last Name Dontrell Referring Provider Specialty Family Prac debbi Referred Organization [facility] Gastroenterolo gy Referred Provider Howard Kunz Referred Address [address] ,[place], [place],[address] Referred Provider Specialty Gastroentero logy Referral Priority Routine General Notes Svetlana Talbert 04/11/2022 01:25:30 PM > referral sent p2p. pt understands she will be contacted to schedule this appt. Reason appt pt will call to schedule this appt consult for continued ear pain despite antibiotic treatment Diagnosis 1 Right acute otitis m edia (H66.91) Referral Organization [facility] Family Medicin e Saman Referring Provider First Name Jeff Referring Provider Last Name Dontrell Referring Provider Specialty Family Prac debbi Referred Organization [facility] Referred Provider Jennie Guillermo Referred Address ,[place], [place],[address] Referred Provider Specialty Ear, Nose an d Throat Referral Priority Routine Referral Appointment Date 2022-08-14 General Notes NitishSvetlana 08/14/2022 10:48:22 AM > referral sent p2p [...] disease) Hyperlipidemia Hypothyroidism Other chronic pain Other intermediate (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 Palpitation Vitamin D deficiency Chief Complaint review labs BP/discuss meds/ENT Reason for Visit Anxiety Asthma Diabetes Elevated blood pressure reading Fatigue GERD (gastroesophageal reflux disease) Hyperlipidemia Hypothyroidism Other chronic pain 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 winder tender (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 Palpitation Vitamin D deficiency Asymmetrical sensorineural hearing loss Chronic pain Elevated blood pressure reading Tinnitus Chief Complaint review labs BP/discuss meds/ENT review thyroid labs Reason for Visit Anxiety Asthma Diabetes Elevated blood pressure reading Fatigue GERD (gastroesophageal reflux disease) Hyperlipidemia Hypothyroidism Other chronic pain Other long winder tender (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 Palpitation Vitamin D deficiency [...] Lumbar radiculopathy Lumbosacral spondylosis Sacroiliitis Chief Complaint right L3,4 transfora kelton epidural inj f/u after L3,4 LTR on right BILATERAL SACROILIAC JOINT INJ FOLLOW UP AFTER ASHLEY SI H yr f/u Asthma, Seasonal Allergies, GERD Reason for Visit Chronic pain Lumbar radiculopathy Lumbosacral spondylosis Sacroiliitis Chronic pain Lumbar radiculopathy Lumbosacral spondylosis Sacroiliitis Asthma GERD (gastroesophageal reflux disease) Seasonal allergies Chief Complaint Admit Date H yr f/u Asthma, Seasonal Allergies, GERD March 26, 2024 11:31am review labs April 11, 2024 11:58am LOW BACK PAIN June 03, 2024 1 1:36am Reason for Visit Admit Date Asthma March 26, 2024 1 1:31am GERD (gastroesophageal reflux disease) N ovember 2023 11:31am Seasonal allergies March 26, 2024 1 1:31am Diabetes April 11, 2024 11:58am Hip pain April 11, 2024 11:58am Hyperlipidemia April 11, 2024 11:58am Hypothyroidism April 11, 2024 11:58am Lumbar stenosis April 11, 2024 11:58am Sacroiliitis April 11, 2024 11:58am Vitamin D deficiency April 11, 2024 11:58am Chronic pain June 03, 2024 1 1:36am Lumbosacral spondylosis June 03 11:36am Sacroiliitis June 03, 2024 1 1:36am Chief Complaint Admit Date H yr f/u Asthma, Seasonal Allergies, GERD March 26, 2024 11:31am review labs April 11, 2024 11:58am LOW BACK PAIN June 03, 2024 1 1:36am let shoulder pain June 13, 2024 1 2:08pm Reason for Visit Admit Date Asthma March 26, 2024 1 1:31am GERD (gastroesophageal reflux disease) N ovember 2023 11:31am Seasonal allergies March 26, 2024 1 1:31am Diabetes April 11, 2024 11:58am Hip pain April 11, 2024 11:58am Hyperlipidemia April 11, 2024 11:58am Hypothyroidism April 11, 2024 11:58am Lumbar stenosis April 11, 2024 11:58am Sacroiliitis April 11, 2024 11:58am Vitamin D deficiency April 11, 2024 11:58am Chronic pain June 03, 2024 1 1:36am Lumbosacral spondylosis June 03 11:36am Sacroiliitis June 03, 2024 1 1:36am Diarrhea June 13, 2024 1 2:08pm Lumbosacral spondylosis Lynne 24th, 20 25 12:08pm Shoulder pain, left June 13, 2024 1 2:08pm Additional Source Comments INFORMATION SOURCE (unrecogn ized section and content) DATE CREATED AUTHOR 10/10/2018 [facility] [place] DATE CREATED AUTHOR AUTHOR'S ORGANIZ ATION 05/13/2022 [facility] DATE CREATED AUTHOR AUTHOR'S ORGANIZ ATION 09/15/2022 [facility] DATE CREATED AUTHOR AUTHOR'S ORGANIZ ATION 12/19/2022 [facility] DATE CREATED AUTHOR AUTHOR'S ORGANIZ ATION 10/14/2023 [facility] DATE CREATED AUTHOR AUTHOR'S ORGANIZ ATION 10/24/2023 [facility] EPIC DATE CREATED AUTHOR AUTHOR'S ORGANIZ ATION 12/09/2023 [facility] DATE CREATED AUTHOR AUTHOR'S ORGANIZ ATION 01/31/2024 [facility] Source Comments (unrecognize d section and content) In the event this informatio n is protected by the Federal Confidentiality of Alcohol and Drug Abuse Patient Records regulations: The Federal rules restrict any use of the information to criminally investigate or prosecute any alcohol or drug abuse patient.[facility] the event this information is protected by the Federal Confidentiality of Alcohol and Drug Abuse Patient Records regulations: The Federal rules restrict any use of the information to criminally investigate or prosecute any alcohol or drug abuse patient.[facility] HospitalIn the event this information is protected by the Federal Confidentiality of Alcohol and Drug Abuse Patient Records regulations: The Federal rules restrict any use of the information to criminally investigate or prosecute any alcohol or drug abuse patient.[facility] HospitalIn the event this information is protected by the Federal Confidentiality of Alcohol and Drug Abuse Patient Records regulations: The Federal rules restrict any use of the information to criminally investigate or prosecute any alcohol or drug abuse patient.[facility] HospitalIn the event this information is protected by the Federal Confidentiality of Alcohol and Drug Abuse Patient Records regulations: The Federal rules restrict any use of the information to criminally investigate or prosecute any alcohol or drug abuse patient.[facility] Reason for Visit (unrecogniz ed section and content) Reason Comments Lab Orders Reason Comments Thyroid Problem Diabetes Reason Comments Appointment Reason Comments Patient Question Care Teams (unrecognized sec tion and content) Team Status: Active Member Role Status Dates Jeff Jon DO Primary Care Provider Active Team Status: Active Member Role Status Dates Jeff Jon DO Primary Care Provide r, Attending Provider Active Start: March 20, 2024 Team Status: Inactive Member Role Status Dates Jeff Jon DO Primary Care Provider Active S tart: March 26, 2024 End: March 26, [address] [facility] Attending Provider Active Start: March 26, 2024 End: March 26, 2024 Team Status: Inactive Member Role Status Zach Jeff Jon DO Primary Care Provide r, Attending Provider Active Start: April 11, 2024 End: April 11, 2024 Team Status: Inactive Member Role Status Zach Jon DO Primary Care Provider Active S tart: June 03, 2024 End: June 03, 2024 Logan Brown MD Attending Provider Active Sta rt: June 03, 2024 End: June 03, 2024 Team Status: Inactive Member Role Status Zach Jon DO Primary Care Provide r, Referring [...] 2024 Team Status: Active Member Role Status Dates Jeff Jon DO Primary Care Provide r, Attending Provider Active Start: October 25, 2023 Team Status: Inactive Member Role Status Dates Jeff Jon DO Primary Care Provide r, Attending Provider Active Start: October 29, 2023 End: October 29, 2023 Team Status: Inactive Member Role Status Dates Jeff Jon DO Primary Care Provide r, Attending Provider Active Start: September 26, 2023 End: September 26, 2023 Component Assembler Supervisor Relationship Specialty Start Date End Date Jeff Jon, DO [address] [place] [address] PCP - [facility] 08/01/18 Component Assembler Supervisor Relationship Specialty Start Date End Date Jeff Jon, DO [address] [place] [address] PCP - [facility] 08/01/18 Component Assembler Supervisor Relationship Specialty Start Date End Date Jeff Jon, DO [address] [place] [address] PCP - [facility] 08/01/18 Component Assembler Supervisor Relationship Specialty Start Date End Date Jeff Jon, DO [address] [place] [address] PCP - [facility] 08/01/18 Component Assembler Supervisor Relationship Specialty Start Date End Date Jeff Jon, DO [address] [place] [address] PCP - General Family Medicine 08/01/18 Team Status: Active Member Role Status Dates Jeff Jon DO Primary Care Provide r, Attending Provider Active Start: August 23, 2023 Team Status: Inactive Member Role Status Dates Jeff Jon DO Primary Care Provide r, Attending Provider Active Start: August 28, 2023 End: August 28, 2023 Team Status: Active Member Role Status Dates Jeff Jon DO Primary Care Provider Active S tart: February 05, 2024 Logan Brown MD Attending Provider Active Sta rt: February 05, 2024 Team Status: Inactive Member Role Status Dates Jeff Jon DO Primary Care Provider Active S tart: February 12, 2024 End: February 12, 2024 Logan Brown MD Attending Provider Active Sta rt: February 12, 2024 End: February 12, 2024 Team Status: Inactive Member Role Status Dates Jeff Jon DO Primary Care Provide r, Attending Provider Active Start: June 13, 2024 End: June 13, 2024 Goals (unrecognized section and content) Goals [...] BE BASED ON THE PRIMARY CLINICAL RECORDS. [facility]. provides no warranty or guarantee of the accuracy or completeness of information in this document.
--- NOTE | 2024-06-17 13:43 | XR_ITS ---
The [address] [address] Patient Name: CANELO SINGH MRN: [id number] date: 1965 Sex: F Assigned Patient Location: [facility] Current Patient Location: Accession/Order Number: [id number] Exam Date: 06/17/2024 13:37 Report Date: 06/18/2024 13:33 At the request of: JEFF JON Procedure: XR shoulder LT min 2V PROCEDURE: XR shoulder LT min 2V HISTORY: Left Shoulder Pain ; chronic left shoulder pain radiating to elbow COMPARISON: None. FINDINGS: BONES:No fracture, acute abnormality, or significant arthropathy. SOFT TISSUES:8 mm calcification projected between the acromion process and humeral head, likely within the superior rotator cuff tendon. EFFUSION:None visible. OTHER: Negative. XR/XR shoulder LT min 2V IMPRESSION: 1. Prominent calcification suspected to be within the superior rotator cuff tendon likely secondary to calcific tendinitis. 2. No acute bone abnormality or significant degenerative joint disease. Electronically authenticated by: ELLE URENA Date: 06/18/2024 13:33
== END 2024-06-17 13:20 | disposition home or self-care (01) ==
LOC: RAD 13:20
PROVIDERS: PCP Family Medicine; Visit Provider Family Medicine
DX: M25.512 Pain in left shoulder (principal)
CPT/HCPCS: 73030

== ENCOUNTER 2024-08-05 10:48 | Observation (INO) | payer OTHER, SELFPAY ==
[2024-08-05] VITALS (38 sets, daily range): BP systolic 123–180; BP diastolic 70–107; PULSE 69–104; TEMP 36.4–36.9; O2SAT 90–98; BMI 46.6; BMI 47.3
--- NOTE | 2024-08-05 10:56 | ED_ITS ---
HPI HPI - General Adult General Chief complaint: Chest Pain Stated complaint: HEART PALPUTATIONS CHEST PAIN SOB Time Seen by Provider: 08/05/24 10:56 Source: patient Mode of arrival: walk-in Limitations: no limitations History of Present Illness HPI narrative: The patient woke up this morning around 6 AM almost 5 hours ago, with a chest racing sensation associated with chest pressure and headache, mentioned that at that time she had some blurry vision and some dizziness and mildly nauseous, the tachycardia continued for at least few minutes but it stopped before the patient came here and she still continued to have chest pressure, there is some shortness of breath The patient had none of those symptoms last night She does have a history of chronic stomach issues that is getting a workup as outpatient with endoscopy and colonoscopy after negative CAT scan recently The patient denies any fever chills or any other complaints She mentioned the blurry vision was associated with a headache and right now she would not say that she actually have blurry vision but she does have a headache, no double vision at any time Related Data Home Medications ?Medication ?Instructions ?Recorded ?Confirmed cetirizine 10 mg tablet 10 mg PO Q12H 06/30/23 06/30/23 glimepiride 1 mg tablet mg 06/30/23 levothyroxine 175 mcg tablet 175 mcg PO DAILY 06/30/23 06/30/23 losartan 50 mg tablet 50 mg PO DAILY 06/30/23 06/30/23 metformin 500 mg tablet,extended 500 mg PO .dailiy 06/30/23 06/30/23 release 24 hr Allergies Allergy/AdvReac Type Severity Reaction Status Date / Time clarithromycin (From Biaxin) Allergy Mild Rash Verified 08/05/24 10:56 gatifloxacin (From Tequin) Allergy Mild Rash Verified 08/05/24 10:56 levaquin Allergy Mild Rash Uncoded 08/05/24 10:56 Opioid HPI Opioid Management Most Recent Opioid Data: Last Pain Scale 6 08/05/24 12:12 08/05/24 Last MAR Pain Assessment 08/05/24 12:12 Review of Systems ROS Status of ROS 10 or more systems reviewed and unremark able except as noted in history and below PFSH PFSH Social History Smoking status: Never smoker Little interest or pleasure in doing things: not at all Feeling down, depressed, or hopeless: not at all Exam Narrative Exam Narrative: Nurses notes and vital signs reviewed and patient is not hypoxic. General: Well-appearing and in no apparent distress. Skin: Warm, dry, no pallor noted. No rash. Head: Normocephalic, atraumatic. Neck: Supple, non-tender. Cardiovascular: Regular Rate and Rhythm without murmur, gallop or rub. Respiratory: No accessory muscle use or respiratory distress. Lungs are clear to auscultation, no wheezing, rales or rhonchi Chest Wall: no tenderness Back: No midline thoracic or lumbar vertebral tenderness. No CVA tenderness Musculoskeletal: normal ROM, no calf or popliteal tenderness, no lower extremity edema/swelling GI: Abdomen is soft, non-distended. Normal bowel sounds. No masses appreciated. No tenderness to palpation. No rebound, guarding, or rigidity noted. Neurological: A&O x4. No cranial nerve dysfunction observed. Moves all extremities. Sensation intact. Psychiatric: Cooperative and interactive. Normal mood and affect. Constitutional Vital Signs, click to edit/add: Last Vital Signs Temp 98.5 F 08/05/24 10:51 Pulse 80 08/05/24 14:15 Resp 13 08/05/24 14:15 BP 147/95 H 08/05/24 14:00 Pulse Ox 96 08/05/24 14:15 O2 Del Method Room Air 08/05/24 10:51 Course Vital Signs Vital signs: Vital Signs Temperature 98.5 F 08/05/24 10:51 Pulse Rate 104 H 08/05/24 10:51 Respiratory Rate 24 H 08/05/24 10:51 Blood Pressure 123/71 08/05/24 10:51 Pulse Oximetry 97 08/05/24 10:51 Oxygen Delivery Method Room Air 08/05/24 10:51 Temperature 98.5 F 08/05/24 10:51 Pulse Rate 80 08/05/24 14:15 Respiratory Rate 13 08/05/24 14:15 Blood Pressure 147/95 H 08/05/24 14:00 Pulse Oximetry 96 08/05/24 14:15 Oxygen Delivery Method Room Air 08/05/24 10:51 Medical Decision Making [facility] Narrative Medical decision making narrative: The patient EKG is showing sinus rhythm with a heart rate of [address] elevation or depression CT head is negative for any acute pathology Chest x-ray showed no acute pathology CBC and CHEM showed no acute pathology as well The patient had a CT angio the chest showed groundglass positive bilaterally The patient did mention that she had some cough after questioning after the CAT scan result The patient case was discussed with cardiology service . And he agreed that since the patient troponin repeated twice was negative but she did come to us with the palpitation that started overnight observation overnight is a the main plan at the moment Patient also had some hypomagnesemia that was corrected with IV magnesium Patient case was discussed with Dr. Woodall and she agreed with above-mentioned plan Lab Data Labs: Lab Results 08/05/24 08/05/24 08/05/24 Range/Units 10:59 12:49 13:29 WBC 9.8 (4.0-11.0) 10^3/uL RBC 4.60 (4.20-5.40) 10^6/uL Hgb 14.4 (12.0-16.0) g/dL Hct 43.1 (36.0-48.0) % MCV 93.7 (81.0-99.0) fL MCH 31.3 (26.7-34.0) pg MCHC 33.4 (29.9-35.2) g/dL RDW 12.8 (11.0-15.0) % Plt Count 344 (150-450) 10^3/uL MPV 9.8 (9.5-13.5) fL Neut % (Auto) 63.5 (43.0-75.0) % Lymph % (Auto) 23.2 (20.5-60.0) % Hutchinson % (Auto) 6.4 (1.7-12.0) % Eos % (Auto) 5.1 (0.9-7.0) % Baso % (Auto) 1.1 (0.2-2.0) % Neut # (Auto) 6.2 (1.4-6.5) 10^3/uL Lymph # (Auto) 2.3 (1.2-3.8) 10^3/uL Hutchinson # (Auto) 0.6 (0.3-0.8) 10^3/uL Eos # (Auto) 0.5 (0.0-0.7) 10^3/uL Baso # (Auto) 0.1 (0.0-0.1) 10^3/uL Abs Immat Gran (auto) 0.07 H (0.00-0.03) 10^3/uL Imm/Tot Granulo (auto) 0.7 H (0.0-0.5) % PT 9.8 (9.0-11.6) sec INR <0.93 Sodium 138 (136-145) mmol/L Potassium 4.7 (3.5-5.1) mmol/L Chloride 102 (98-107) mmol/L Carbon Dioxide 28.1 (21.0-32.0) mmol/L Anion Gap 12.6 BUN 21.0 H (7.0-18.0) mg/dL Creatinine 0.81 (0.55-1.02) mg/dL Est GFR ( Amer) >60 (>=60 mL/min/1.73m^2) Est GFR (Non-Af Amer) >60 (>=60 mL/min/1.73m^2) BUN/Creatinine Ratio 25.9 Glucose 146 H (74-106) mg/dL Calcium 10.0 (8.5-10.1) mg/dL Magnesium 1.7 L (1.8-2.4) mg/dL Total Bilirubin 0.4 (0.2-1.0) mg/dL AST 20 (15-37) U/L ALT 20 (14-59) U/L Alkaline Phosphatase 91 (46-116) U/L Troponin I High Sens 8.4 7.9 (4.0-51.3) pg/mL Total Protein 7.4 (6.4-8.2) g/dL Albumin 3.7 (3.4-5.0) g/dL Globulin 3.7 g/dL Albumin/Globulin Ratio 1.0 SARS-CoV-2 Ag (CV2AG) Negative (NEGATIVE) Discharge Plan Discharge Chief Complaint: Chest Pain Clinical Impression: Chest pain, Hypertensive urgency, Headache, Palpitations, Hypomagnesemia, Ground glass opacity present on imaging of lung Patient Disposition: Admitted as Observation Time of Disposition Decision: 14:06
--- NOTE | 2024-08-05 11:03 | ECG_ITS ---
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
[2024-08-05 11:10] LABS: Basophils Absolute Auto 0.1 10^3/uL (0.0-0.1); Basophils Percent Auto 1.1 % (0.2-2.0); Eosinophils Absolute Auto 0.5 10^3/uL (0.0-0.7); Eosinophils Percent Auto 5.1 % (0.9-7.0); Hematocrit 43.1 % (36.0-48.0); Hemoglobin 14.4 g/dL (12.0-16.0); Immature Granulocytes Abs Auto 0.07 10^3/uL (0.00-0.03); Immature Granulocytes Pct Auto 0.7 % (0.0-0.5); Lymphocytes Absolute Auto 2.3 10^3/uL (1.2-3.8); Lymphocytes Percent Auto 23.2 % (20.5-60.0); Mean Corpuscular HGB Conc 33.4 g/dL (29.9-35.2); Mean Corpuscular Hemoglobin 31.3 pg (26.7-34.0); Mean Corpuscular Volume 93.7 fL (81.0-99.0); Mean Platelet Volume 9.8 fL (9.5-13.5); Monocytes Absolute Auto 0.6 10^3/uL (0.3-0.8); Monocytes Percent Auto 6.4 % (1.7-12.0); Neutrophils Absolute Auto 6.2 10^3/uL (1.4-6.5); Neutrophils Percent Auto 63.5 % (43.0-75.0); Platelet Count 344 10^3/uL (150-450); Red Cell Distribution Width 12.8 % (11.0-15.0); White Blood Count 9.8 10^3/uL (4.0-11.0)
[2024-08-05] MEDS: NITROGLYCERIN 0.4 MG BOTTLE SL (11:10)
[2024-08-05] MEDS: KETOROLAC TROMETHAMINE 30 MG/ML VIAL 15 MG IVP (11:10)
[2024-08-05 11:23] LABS: Prothrombin Time 9.8 sec (9.0-11.6)
[2024-08-05 11:25] LABS: INR <0.93
[2024-08-05 11:31] LABS: Anion Gap 12.6
[2024-08-05 11:34] LABS: Alanine Aminotransferase 20 U/L (14-59); Albumin Level 3.7 g/dL (3.4-5.0); Alkaline Phosphatase 91 U/L (46-116); Aspartate Amino Transferase 20 U/L (15-37); BUN Creatinine Ratio 25.9; Bilirubin Total 0.4 mg/dL (0.2-1.0); Carbon Dioxide 28.1 mmol/L (21.0-32.0); Chloride 102 mmol/L (98-107); Estimated GFR (African America >60 (>=60 mL/min/1.73m^2); Estimated GFR (Non-African Ame >60 (>=60 mL/min/1.73m^2); Globulin 3.7 g/dL; Glucose 146 mg/dL (74-106); Potassium 4.7 mmol/L (3.5-5.1); Sodium 138 mmol/L (136-145); Total Protein 7.4 g/dL (6.4-8.2); Troponin I High Sensitivity 8.4 pg/mL (4.0-51.3)
[2024-08-05 11:47] LABS: Magnesium 1.7 mg/dL (1.8-2.4)
[2024-08-05] MEDS: MORPHINE SULFATE 4 MG/ML VIAL IV (12:12)
[2024-08-05 13:19] LABS: Troponin I High Sensitivity 7.9 pg/mL (4.0-51.3)
[2024-08-05 14:04] LABS: Internal Control Within Normal Limits; SARS-CoV-2 Ag NEGATIVE (NEGATIVE)
[2024-08-05] MEDS: MAGNESIUM SULFATE/D5W 1 GM/100 ML PREMIX IV (14:10)
--- NOTE | 2024-08-05 15:37 | PM.HP ---
HPI H&P: HPI History of Present Illness Chief complaint: HEART PALPUTATIONS CHEST PAIN SOB Narrative: Patient is a 58 y.o white female with past medical history of GERD, Hypertension, Asthma, non-insulin dept type 2 diabetic who presented to the ER today after feeling chest pressure and heart palpitations/racing after she woke up this morning. She immediately felt very tired and tried to go back to bed. The heart continued to race and she felt the chest pressure, non-radiating so she came to the ER. She also had a headache. At the time of admission exam, she is no longer having chest pain. She has had a slight dry cough. She has Asthma and sometimes she gets bronchitis. She had a stress test >5 years ago. Her brother had ND at the age of 50, her father had ND at the age of 30, and cardiac bypass. She has never smoked. She also has been having ongoing abdominal pain and nausea and is seeing a GI doctor in [place] Who plans for EGD and colonoscopy in the next few weeks. She has tried a sleep study in the past but was unsucessful. ER findings: WBC's 9.8, Cr 0.81, BUN 21, Trop 7.9, Hb 14.4, Chest CTA- Showed no acute PE's. Mag 1.7, BP 147/95, 96% on room air, HR 80's EKG showed no acute changes, NSR with no ST segment changes. Opioid HPI Opioid Management Most Recent Pain and Opioid Data: Last Pain Scale 6 08/05/24 12:12 08/05/24 Last Pain Assessment 08/05/24 16:40 Last MAR Pain Assessment 08/05/24 12:12 Last ORT Total Score 4 08/05/24 15:03 08/05/24 Last ORT Risk Category Moderate Risk 08/05/24 15:03 08/05/24 Review of Systems ROS Narrative ROS: a complete review of systems were reviewed with patient and are positive as below or listed in History of Chief Complaint. General: no fever, chills, night sweats Head: no headache, trauma, visual changes, nausea or vomiting Skin: no reported rashes, itching or sores Eyes: no blurriness of vision Ears: no reported hearing loss, vertigo, earache, or tinnitus Throat: no sore throat, hoarseness, swelling of neck, or tongue pain Heart:chest pain, racing Lungs: no shortness of breath or cough GI: no diarrhea or vomiting/nausea Urinary: no urinary urgency, frequency or pain Neuro: no numbness or tingling HEM: no bleeding issues or bruising ENDO: no thyroid problems Psych: no anxiety or depression [facility] Medical History (Updated 08/05/24 @ 16:06 by Lupis Cuevas RN) Spinal stenosis ?M48.00 - Spinal stenosis, site unspecified (ICD-10) GERD without esophagitis ?K21.9 - Gastro-esophageal reflux disease without esophagitis (ICD-10) Non-insulin dependent diabetes mellitus Asthma, mild intermittent ?J45.20 - Mild intermittent asthma, uncomplicated (ICD-10) Essential (primary) hypertension ?I10 - Essential (primary) hypertension (ICD-10) Surgical History (Updated 08/05/24 @ 16:06 by Lupis Cuevas RN) History of repair of rotator cuff ?Z98.890 - Other specified postprocedural states (ICD-10) History of appendectomy ?Z90.49 - Acquired absence of other specified parts of digestive tract (ICD-10) History of cholecystectomy ?Z90.49 - Acquired absence of other specified parts of digestive tract (ICD-10) History of hysterectomy ?Z90.710 - Acquired absence of both cervix and uterus (ICD-10) Family History (Updated 08/05/24 @ 15:13 by Lupis Cuevas RN) Father Family history of stroke Family history of myocardial infarction Family history of hypertension Family history of diabetes mellitus Family history of CHF (congestive heart failure) Grandmother Family history of stroke Family history of hypertension Family history of diabetes mellitus Grandfather Family history of myocardial infarction Family history of hypertension Brother Family history of myocardial infarction Family history of hypertension Aunt Family history of hypertension Family history of cancer Family history of COPD (chronic obstructive pulmonary disease) Social History (Updated 08/05/24 @ 15:14 by Lupis Cuevas RN) Within the past year, how often did you have a drink containing alcohol: monthly or less Smoking status: Never smoker Non-prescribed substance use: denies use Highest level of school completed/degree received: high school graduate Little interest or pleasure in doing things: not at all Feeling down, depressed, or hopeless: not at all Meds Home Medications and Allergies Home Medications ?Medication ?Instructions ?Recorded ?Confirmed ?Type cetirizine 10 mg tablet 10 mg PO DAILY 06/30/23 08/05/24 History levothyroxine 175 mcg tablet 200 mcg PO DAILY 06/30/23 08/05/24 History losartan 50 mg tablet 50 mg PO DAILY 06/30/23 08/05/24 History metformin 500 mg tablet,extended 1,000 mg PO DAILY 06/30/23 08/05/24 History release 24 hr cyclobenzaprine 10 mg tablet 10 mg PO BEDTIME 08/05/24 08/05/24 History esomeprazole magnesium 40 mg 40 mg PO DAILY 08/05/24 08/05/24 History capsule,delayed release fluticasone 250 mcg-salmeterol 50 1 inh inhalation BID 08/05/24 08/05/24 History mcg/dose blistr powdr for inhalation (Advair Diskus) meloxicam 15 mg tablet 15 mg PO DAILY 08/05/24 08/05/24 History Allergies Allergy/AdvReac Type Severity Reaction Status Date / Time clarithromycin (From Biaxin) Allergy Mild Rash Verified 08/05/24 10:56 gatifloxacin (From Tequin) Allergy Mild Rash Verified 08/05/24 10:56 levaquin Allergy Mild Rash Uncoded 08/05/24 10:56 Exam Narrative Exam Narrative: General: Patient is alert, and oriented to person, place and time with normal affect, proper hygiene, morbid obesity Skin: no visible rashes, or ulcers Head: atraumatic, acephalic Eyes: PERRLA, no nystagmus present, conjunctiva clear, no scleral icterus Ears: normal gross auditory acuity Nose: symmetric, no discharge, no maxillary or frontal sinus tenderness Mouth/Throat: no erythema, exudate, or tonsillar enlargement, normal dentition Neck: no masses palpated Heart: Normal rate and rhythm, no murmurs/rubs/gallops Lungs: no audible wheezes, crackles and normal breath sounds all lung arvizu Abdomen: Normal audible bowel sounds, no distension, No palpable masses, no organomegaly, no rebound/guarding/ or rigidity, central obesity Musculoskeletal: no swelling bilateral lower extremities Neuro: CN II-X grossly intact Constitutional Vital Signs, click to edit/add: Last Vital Signs Temp 98.5 F 08/05/24 10:51 Pulse 80 08/05/24 14:15 Resp 13 08/05/24 14:15 BP 147/95 H 08/05/24 14:00 Pulse Ox 96 08/05/24 14:15 O2 Del Method Room Air 08/05/24 10:51 Results Labs Labs: Short CBC 08/05/24 Range/Units 10:59 WBC 9.8 (4.0-11.0) 10^3/uL Hgb 14.4 (12.0-16.0) g/dL Hct 43.1 (36.0-48.0) % Plt Count 344 (150-450) 10^3/uL BMP 08/05/24 10:59 Sodium 138 Potassium 4.7 Chloride 102 Carbon Dioxide 28.1 BUN 21.0 H Creatinine 0.81 Glucose 146 H Calcium 10.0 Liver Function 08/05/24 Range/Units 10:59 Total Bilirubin 0.4 (0.2-1.0) mg/dL AST 20 (15-37) U/L ALT 20 (14-59) U/L Alkaline Phosphatase 91 (46-116) U/L Albumin 3.7 (3.4-5.0) g/dL Assessment and Plan Assessment and Plan (1) Chest pain: Assessment and Plan: normal troponin x 2, continue to trend; Chest X-ray was negative, CTA showed no acute PE's. elevated Blood pressure. EKG showed no st segment changes. Monitor on Telemetry overnight. She was given nitro in the ER. Qualifiers: Chest pain type: unspecified Qualified Code(s): R07.9 - Chest pain, unspecified (2) Palpitations: Assessment and Plan: EKG normal, will be on Telemetry overnight, Check TFT's, lipids, ha1c, continue losartan. Mag was 1.7, that was replaced IV. May need a holter monitor at discharge. (3) Essential (primary) hypertension: Assessment and Plan: slight elevation today. Continue losartan. May need additional beta xochitl. (4) Asthma, mild intermittent: Assessment and Plan: continue zyrtec and advair Qualifiers: Asthma complication type: uncomplicated Qualified Code(s): J45.20 - Mild intermittent asthma, uncomplicated (5) Non-insulin dependent diabetes mellitus: Assessment and Plan: check ha1c, hold metformin since patient had contrasted study. SSI if needed (6) GERD without esophagitis: Assessment and Plan: continue omeprazole Plan Patient is a full code continue lovenox for DVT prophylaxis Patient is in observation status Discussed the finding of ground glass opasities on Chest CT, to me this is more inflammation and not infectious. WBC's normal, afebrile, oxygen good and exam normal. Will monitor.
[2024-08-05 16:26] LABS: Glucometer 117 mg/dL (74-106)
[2024-08-05] MEDS: ALBUTEROL SULFATE 2.5 MG/3 ML VIAL NEB IH ×2 (17:00→22:37)
[2024-08-05] MEDS: ENOXAPARIN SODIUM 40 MG/0.4 ML SYRINGE SUBQ (17:38)
[2024-08-05 21:26] LABS: Troponin I High Sensitivity 7.6 pg/mL (4.0-51.3)
[2024-08-05 21:35] LABS: Glucometer 130 mg/dL (74-106)
[2024-08-05] MEDS: BUDESONIDE 0.5 MG/2 ML AMPULE NEB IH (22:37)
[2024-08-06] VITALS (11 sets, daily range): BP systolic 141–164; BP diastolic 90–98; PULSE 76–97; TEMP 36.6–36.7; O2SAT 91–95
[2024-08-06] MEDS: ALBUTEROL SULFATE 2.5 MG/3 ML VIAL NEB IH ×2 (04:59→10:41)
[2024-08-06 05:39] LABS: Basophils Absolute Auto 0.1 10^3/uL (0.0-0.1); Basophils Percent Auto 0.9 % (0.2-2.0); Eosinophils Absolute Auto 0.4 10^3/uL (0.0-0.7); Eosinophils Percent Auto 4.8 % (0.9-7.0); Hematocrit 43.9 % (36.0-48.0); Hemoglobin 14.8 g/dL (12.0-16.0); Immature Granulocytes Abs Auto 0.04 10^3/uL (0.00-0.03); Immature Granulocytes Pct Auto 0.5 % (0.0-0.5); Lymphocytes Absolute Auto 2.6 10^3/uL (1.2-3.8); Mean Corpuscular HGB Conc 33.7 g/dL (29.9-35.2); Mean Corpuscular Hemoglobin 31.4 pg (26.7-34.0); Mean Corpuscular Volume 93.2 fL (81.0-99.0); Mean Platelet Volume 9.7 fL (9.5-13.5); Monocytes Absolute Auto 0.5 10^3/uL (0.3-0.8); Monocytes Percent Auto 5.9 % (1.7-12.0); Neutrophils Absolute Auto 5.2 10^3/uL (1.4-6.5); Neutrophils Percent Auto 58.9 % (43.0-75.0); Platelet Count 329 10^3/uL (150-450); Red Blood Count 4.71 10^6/uL (4.20-5.40); Red Cell Distribution Width 12.7 % (11.0-15.0); White Blood Count 8.8 10^3/uL (4.0-11.0)
[2024-08-06] MEDS: LEVOTHYROXINE SODIUM 100 MCG TABLET 200 MCG PO (05:43)
[2024-08-06] MEDS: PANTOPRAZOLE SODIUM 40 MG TABLET.DR PO (05:43)
[2024-08-06 06:00] LABS: Estimated Average Glucose 171 mg/dL; Glycohemoglobin A1C 7.6 % (4.5-6.2)
[2024-08-06 06:28] LABS: Alanine Aminotransferase 24 U/L (14-59); Albumin Globulin Ratio 1.1; Albumin Level 4.1 g/dL (3.4-5.0); Alkaline Phosphatase 91 U/L (46-116); Anion Gap 16.5; Aspartate Amino Transferase 23 U/L (15-37); BUN Creatinine Ratio 19.8; Bilirubin Total 0.5 mg/dL (0.2-1.0); Calcium 10.1 mg/dL (8.5-10.1); Carbon Dioxide 27.5 mmol/L (21.0-32.0); Chloride 100 mmol/L (98-107); Cholesterol 258 mg/dL (<=200); Estimated GFR (African America >60 (>=60 mL/min/1.73m^2); Estimated GFR (Non-African Ame >60 (>=60 mL/min/1.73m^2); Globulin 3.6 g/dL; Glucose 125 mg/dL (74-106); HDL Cholesterol 86 mg/dL (40-60); Magnesium 1.9 mg/dL (1.8-2.4); Sodium 140 mmol/L (136-145); Thyroid Stimulating Hormone 50.079 uIU/mL (0.358-3.740); Total Protein 7.7 g/dL (6.4-8.2); Triglycerides 158 mg/dL (<=150); Troponin I High Sensitivity 6.6 pg/mL (4.0-51.3); VLDL CHOLESTEROL 31.6 mg/dL
[2024-08-06] MEDS: ACETAMINOPHEN 325 MG TABLET 650 MG PO (08:25)
[2024-08-06] MEDS: LOSARTAN POTASSIUM 50 MG TABLET PO (08:26)
--- NOTE | 2024-08-06 08:48 | P.DS_ITS ---
DS: Providers Provider Date of admission: 08/05/24 14:52 Primary care physician: JEFF JON DS: Diagnosis Discharge Diagnosis (1) Chest pain: Qualifiers: Chest pain type: unspecified Qualified Code(s): R07.9 - Chest pain, unspecified (2) Palpitations: (3) Essential (primary) hypertension: (4) Asthma, mild intermittent: Qualifiers: Asthma complication type: uncomplicated Qualified Code(s): J45.20 - Mild intermittent asthma, uncomplicated (5) Non-insulin dependent diabetes mellitus: (6) GERD without esophagitis: (7) Hyperlipidemia associated with type 2 diabetes mellitus: (8) Asthma exacerbation: Qualifiers: Asthma severity: moderate Asthma persistence: unspecified Qualified Code(s): J45.901 - Unspecified asthma with (acute) exacerbation (9) Abnormal thyroid function test: DS: Summary Hospital Course Hospital Course: Patient is a 58 y.o white female with past medical history of GERD, Hypertension, Asthma, non-insulin dept type 2 diabetic who presented to the ER yesterday after feeling chest pressure and heart palpitations/racing after she woke up this morning. She immediately felt very tired and tried to go back to bed. The heart continued to race and she felt the chest pressure, non-radiating so she came to the ER. She also had a headache. At the time of admission exam, she is no longer having chest pain. She has had a slight dry cough. She has Asthma and sometimes she gets bronchitis. She had a stress test >5 years ago. Her brother had [place] at the age of 50, her father had [place] at the age of 30, and cardiac bypass. She has never smoked. She also has been having ongoing abdominal pain and nausea and is seeing a GI doctor in [place] Who plans for EGD and colonoscopy in the next few weeks. She has tried a sleep study in the past but was unsuccessful. ER findings: WBC's 9.8, Cr 0.81, BUN 21, Trop 7.9, Hb 14.4, Chest CTA- Showed no acute PE's but bilateral ground glass opacities. Mag 1.7, BP 147/95, 96% on room air, HR 80's EKG showed no acute changes, NSR with no ST segment changes. Patient admitted on Telemetry and there were no overnight events. She will be sent home on a 3 day Holter monitor and will follow up with [facility] cardiology for results and discussion about outpatient stress test given her risk factors. Troponin's were trended x 4 and all negative. Last night she developed some wheezing, was given breathing treatments. I ordered and reviewed Chest X-ray this morning and still no evidence of Pneumonia but patient very wheezy on exam. I gave her Solumedrol 125mg x 1, and IV azith (was not able to be given as IV went bad) so PO azithromycin 500mg x 1. I will place her on prednisone 40mg daily x 7 days, Azithromycin pack for 6 days and Albuterol inhaler. Her TSH was also elevated at 50. I have increased her levothyroxine to 225mcg daily. She will need recheck TFT's in 1 month. I discussed calling her GI doctor and letting them know about her acute asthma exacerbation given surgery for next week that may need to be postponed. Vitals are stable. HA1c was 7.6 and total cholesterol was elevated at 258. Discussed really trying to improve her diet and her blood sugars to better control her cholesterol. She plans to make these changes. She will be discharged today with close follow up with cardiology and PCP. She may return to the ER with any worsening signs or symptoms. Status at Discharge Functional status at discharge: independent ambulation Overall status at discharge: patient is progressing back to baseline Time Spent with Patient Time attestation: Total time spent providing and/or coordinating discharge services: Time spent: greater than 30 minutes Exam Narrative Exam Narrative: General: Patient is alert, and oriented to person, place and time with normal affect, proper hygiene, morbid obesity Skin: no visible rashes, or ulcers Head: atraumatic, acephalic Eyes: PERRLA, no nystagmus present, conjunctiva clear, no scleral icterus Ears: normal gross auditory acuity Neck: no masses palpated, normal thyroid Heart: Normal rate and rhythm, no murmurs/rubs/gallops Lungs: audible wheezes Abdomen: Normal audible bowel sounds, no distension, No palpable masses, no organomegaly, no rebound/guarding/ or rigidity Musculoskeletal: no swelling bilateral lower extremities Neuro: CN II-X grossly intact Constitutional Vital Signs, click to edit/add: Last Vital Signs Temp 98.1 F 08/06/24 07:51 Pulse 89 08/06/24 08:00 Resp 18 03/19/25 07:51 BP 164/98 H 08/06/24 07:51 Pulse Ox 95 08/06/24 07:51 O2 Del Method Room Air 08/06/24 07:51 DS: Data Data Completed and Pending Labs on day of discharge: Labs from last 24 hours 08/06/24 08/05/24 08/05/24 05:13 21:33 21:01 WBC 8.8 RBC 4.71 Hgb 14.8 Hct 43.9 MCV 93.2 MCH 31.4 MCHC 33.7 RDW 12.7 Plt Count 329 MPV 9.7 Neut % (Auto) 58.9 Lymph % (Auto) 29.0 Hamlin % (Auto) 5.9 Eos % (Auto) 4.8 Baso % (Auto) 0.9 Neut # (Auto) 5.2 Lymph # (Auto) 2.6 [place]lin # (Auto) 0.5 Eos # (Auto) 0.4 Baso # (Auto) 0.1 Abs Immat Gran (auto) 0.04 H Imm/Tot Granulo (auto) 0.5 PT INR Sodium 140 Potassium 4.0 Chloride 100 Carbon Dioxide 27.5 Anion Gap 16.5 BUN 18.0 Creatinine 0.91 Est GFR ( Amer) >60 Est GFR (Non-Af Amer) >60 BUN/Creatinine Ratio 19.8 Glucose 125 H Estimat Average Glucose 171 Hemoglobin A1c 7.6 H Calcium 10.1 Magnesium 1.9 Total Bilirubin 0.5 AST 23 ALT 24 Alkaline Phosphatase 91 Troponin I High Sens 6.6 7.6 NT-Pro-B Natriuret Pep Total Protein 7.7 Albumin 4.1 Globulin 3.6 Albumin/Globulin Ratio 1.1 Triglycerides 158 H Cholesterol 258 H LDL Cholesterol, Calc 141.0 VLDL Cholesterol 31.6 HDL Cholesterol 86 H Cholesterol/HDL Ratio 3.0 TSH 50.079 H SARS-CoV-2 Ag (CV2AG) POC Glucose 130 H 08/05/24 08/05/24 08/05/24 16:25 13:29 12:49 WBC RBC Hgb Hct MCV MCH MCHC RDW Plt Count MPV Neut % (Auto) Lymph % (Auto) [place] % (Auto) Eos % (Auto) Baso % (Auto) Neut # (Auto) Lymph # (Auto) [place] # (Auto) Eos # (Auto) Baso # (Auto) Abs Immat Gran (auto) Imm/Tot Granulo (auto) PT INR Sodium Potassium Chloride Carbon Dioxide Anion Gap BUN Creatinine Est GFR ( Amer) Est GFR (Non-Af Amer) BUN/Creatinine Ratio Glucose Estimat Average Glucose Hemoglobin A1c Calcium Magnesium Total Bilirubin AST ALT Alkaline Phosphatase Troponin I High Sens 7.9 NT-Pro-B Natriuret Pep Total Protein Albumin Globulin Albumin/Globulin Ratio Triglycerides Cholesterol LDL Cholesterol, Calc VLDL Cholesterol HDL Cholesterol Cholesterol/HDL Ratio TSH SARS-CoV-2 Ag (CV2AG) Negative POC Glucose 117 H 08/05/24 10:59 WBC 9.8 RBC 4.60 Hgb 14.4 Hct 43.1 MCV 93.7 MCH 31.3 MCHC 33.4 RDW 12.8 Plt Count 344 MPV 9.8 Neut % (Auto) 63.5 Lymph % (Auto) 23.2 [place]lin % (Auto) 6.4 Eos % (Auto) 5.1 Baso % (Auto) 1.1 Neut # (Auto) 6.2 Lymph # (Auto) 2.3 [place]lin # (Auto) 0.6 Eos # (Auto) 0.5 Baso # (Auto) 0.1 Abs Immat Gran (auto) 0.07 H Imm/Tot Granulo (auto) 0.7 H PT 9.8 INR <0.93 Sodium 138 Potassium 4.7 Chloride 102 Carbon Dioxide 28.1 Anion Gap 12.6 BUN 21.0 H Creatinine 0.81 Est GFR ( Amer) >60 Est GFR (Non-Af Amer) >60 BUN/Creatinine Ratio 25.9 Glucose 146 H Estimat Average Glucose Hemoglobin A1c Calcium 10.0 Magnesium 1.7 L Total Bilirubin 0.4 AST 20 ALT 20 Alkaline Phosphatase 91 Troponin I High Sens 8.4 NT-Pro-B Natriuret Pep 56.0 Total Protein 7.4 Albumin 3.7 Globulin 3.7 Albumin/Globulin Ratio 1.0 Triglycerides Cholesterol LDL Cholesterol, Calc VLDL Cholesterol HDL Cholesterol Cholesterol/HDL Ratio TSH SARS-CoV-2 Ag (CV2AG) POC Glucose Discharge Plan Discharge Disposition: Home, Self-Care Discharge Medications: New levothyroxine 25 mcg Tablet 25 mcg PO ACB 30 Days Qty: 30 0RF Rx Instructions: take in addition to your 200mcg for a total of 225mcg daily albuterol sulfate 90 mcg/actuation HFA aerosol inhaler 2 inh inhalation Q4H PRN (Reason: shortness of breath or wheezing) Qty: 6.7 0RF azithromycin [Zithromax Z-Paul] 250 mg tablet See Rx Instructions .ROUTE .COMPLEX Qty: 6 0RF Rx Instructions: For 250 mg dose pack: take 500 mg today (day 1), then 250 mg for 4 days (days 2-5) prednisone 20 mg tablet 20 mg PO BID 7 Days Qty: 14 0RF Continued cetirizine 10 mg tablet 10 mg PO .QHS levothyroxine 175 mcg tablet 200 mcg PO DAILY losartan 50 mg tablet 50 mg PO DAILY fluticasone propion-salmeterol [Advair Diskus] 250-50 mcg/dose blister with device 1 inh inhalation BID meloxicam 15 mg tablet 15 mg PO DAILY cyclobenzaprine 10 mg tablet 10 mg PO BEDTIME esomeprazole magnesium 40 mg capsule,delayed release(DR/EC) 40 mg PO DAILY Held metformin 500 mg tablet extended release 24 hr 1,000 mg PO DAILY Hold Instructions: Resume on 08/09/24. Activity: increase activity as tolerated Diet: diabetic diet Print Language: Greenlandic Forms: Portal Instructions Follow Up Appointments: Dr. Jon's office will contact the patient to schedule a follow up appt. [phone] Aug.20 @ 10:30am with [place] [facility] [phone] Patient was discharged with 3 day Holter monitor- will follow up with [facility] cardiology for results
--- NOTE | 2024-08-06 09:30 | CM.NOTE ---
Rounds made with Dr. Woodall, discussed with pt AM lab work and findings. Discussed increase in thyroid medication and need for Holter monitor at discharge. Pt will discharge to home today and f/u with cardiology and PCP.
[2024-08-06] MEDS: BUDESONIDE 0.5 MG/2 ML AMPULE NEB IH (10:41)
[2024-08-06] MEDS: METHYLPREDNISOLONE SOD SUCC PF 125 MG/2 ML VIAL IVP (10:46)
[2024-08-06] MEDS: AZITHROMYCIN 500 MG in 0.9 % SODIUM CHLORIDE 250 ML 250 MG IV (10:46)
[2024-08-06 11:13] LABS: Glucometer 162 mg/dL (74-106)
[2024-08-06] MEDS: AZITHROMYCIN 250 MG TABLET 500 MG PO (12:49)
--- NOTE | 2024-08-07 13:49 | CM.DCFOLLOWU ---
1st attempt 08/07/24, no answer
== END 2024-08-06 14:05 | disposition home or self-care (01) ==
LOC: ER 14:06 → MS 14:54
PROVIDERS: Admitting Provider Family Medicine; Emergency Provider Emergency Medicine; PCP Family Medicine; Visit Provider Family Medicine
DX: R07.89 Other chest pain (principal); R06.02 Shortness of breath; R00.2 Palpitations; I16.0 Hypertensive urgency; J45.901 Unspecified asthma with (acute) exacerbation; I10 Essential (primary) hypertension; R91.8 Other nonspecific abnormal finding of lung field; E83.42 Hypomagnesemia; E11.69 Type 2 diabetes mellitus with other specified complication; E78.5 Hyperlipidemia, unspecified; K21.9 Gastro-esophageal reflux disease without esophagitis; R94.6 Abnormal results of thyroid function studies; R51.9 Headache, unspecified; Z79.84 Long term (current) use of oral hypoglycemic drugs; Z79.890 Hormone replacement therapy; Z79.899 Other long term (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; Z88.1 Allergy status to other antibiotic agents; Z82.49 Family history of ischemic heart disease and other diseases of the circulatory system
CPT/HCPCS: 36415; 70450; 71045; 71275; 80053; 80061; 82948; 83036; 83735; 83880; 84443; 84484; 85025; 85610; 87811; 93005; 93242; 94640; 96365; 96367; 96372; 96375; 99285; G0378; J0456; J1650; J1885; J2270; J2919; J3475; Q9967

== ENCOUNTER 2024-09-05 09:03 | Outpatient (OUT) | payer OTHER, SELFPAY ==
[2024-09-05 09:50] LABS: Free T3 2.19 pg/mL (2.18-3.98)
[2024-09-05 10:53] LABS: Free T4 2.01 ng/dL (0.76-1.46)
== END 2024-09-05 09:04 | disposition home or self-care (01) ==
LOC: LAB 09:04
PROVIDERS: PCP Family Medicine; Visit Provider Family Medicine
DX: E03.9 Hypothyroidism, unspecified (principal)
CPT/HCPCS: 36415; 84439; 84443; 84481

== ENCOUNTER 2024-11-20 10:40 | Outpatient (OUT) | payer OTHER, SELFPAY ==
[2024-11-20 12:20] LABS: Creatine Kinase 29 U/L (26-192)
== END 2024-11-20 10:41 | disposition home or self-care (01) ==
LOC: LAB 10:41
PROVIDERS: PCP Family Medicine; Visit Provider Internal Medicine Interventional Cardiology
DX: E78.2 Mixed hyperlipidemia (principal)
CPT/HCPCS: 36415; 82248; 82550

== ENCOUNTER 2024-11-20 10:46 | Outpatient (OUT) | payer OTHER, SELFPAY ==
--- OUTSIDE RECORDS SUMMARY | 2022-04-24 09:50 | XMS_ITS | Continuity of Care Document ---
Author Organization [facility] Address [address] [place] [address] Phone Care Team Providers Care Steam Meter Reader Name Role Phone Sandra Borges MD Unavailable [...] Providers Copied on Encounter OFFICE/OUTPA TIENT VISIT, [facility], [address] [place], [address], [place] tel:[phone] [facility] skin cancer screening (chief complaint) Other seborrheic keratosisBenign neoplasm of skin, site unspecifiedNeop lasm of uncertain behavior of skin 2 Katerina Flores . [address] [facility] [place] [id number] , . tel:[phone] Family History Family Member Type Diagnosis Age At Onset No Information Payers Payer name Insurance type Covered democrat ID Bee nunez(s) [facility] Medicare [facility] [id number] Medicaid [id number] Social History Type Description Quantity Date Captured [...] Future Order: Lab Order Slide On ly ([id number]), Collected on: , Sent on: Sent History [...] Mental Status Date Cognitive Assessment Orientation - [place] ed to time, place, person, situation. Patient Care Teams Name Effective Dates (start - stop) Status Members No Information
--- OUTSIDE RECORDS SUMMARY | 2024-11-20 10:51 | XMS_ITS | Encounter Summary ---
Author Organization [facility] Address [address] [place] [address] Care Team Providers Care Flipping Machine Operator Name Role Phone Jose Luis Rodriguez Primary Care Provider [phone] Joe Barksdale DO Primary Care Provider [phone] Source Comments In the event this information is protected by the Federal Confidentiality of Alcohol and Drug AbusePatient Records regulations: The Federal rules restrict any use of the information to criminally investigate or prosecute any alcohol or drug abuse patient.[facility] Encounter Details Date Type Department Care Team (Late st Contact Info) Description 08/02/2016 Patient Msg Medical Records [address] [place] [address] Provider, [facility] Important notice: provider change for upcoming appointment Social History Tobacco Use Types Packs/Day Years Used Date Smoking Tobacco: Never Smokeless Tobacco: Never Alcohol Use Standard Drinks/Week Comments Not Asked 0 (1 standard drink = 0.6 oz pur e alcohol) Comments No Sex and Gender Information Value Date Recorded Sex Assigned at Female 06/14/2021 10:20 PM EST Legal Sex Female 8:11 AM EST Gender Identity Female 06/14/2021 10:20 PM EST Sexual Orientation Not on file documented as of this encounter Plan of Treatment Not on file documented as of this encounter Visit Diagnoses Not on filedocumented in this encounter Care Teams Flipping Machine Operator Relationship Specialty Start Date End Date Jose Luis Rodriguez [address] [place] [address] PCP - General 03/16/08 07/31/18 Joe Barksdale DO [address] [place] [address] PCP - General Family Medicine 08/01/18 documented as of this encounter
--- OUTSIDE RECORDS SUMMARY | 2024-11-20 10:51 | XMS_ITS | Clinical Summary ---
Author Organization [facility] Address [address] [place] [address] Care Team Providers Care Actuarial Internship Name Role Phone Joe Barksdale Lilli BETH Primary Care Provider [phone] Allergies Active Allergy Reactions Criticality Noted Date Comments Clarithromycin Itching 05/16/2007 nerve difficulty Cefuroxime Axetil Itching 05/16/2007 nerve difficulty Fluconazole Itching 06/16/2021 Levofloxacin Itching 05/16/2007 nerve difficulty Lorazepam Other: See Comments 06/16/2021 Metformin Other: See Comments 06/16/2021 Gatifloxacin Itching 05/16/2007 nerve difficulty Medications cetirizine hcl(ZYRTEC 10 MG TAB)Indications: Myalgia and myositis, unspecified Take one(1) tablet daily. 0 7 Active fluticasone/salm eterol(ADVAIR DISKUS 250 MCG-50 MCG/DOSE FOR INHALATION)Indic ations:Myalgia and myositis, unspecified Take one(1) inhalation twice daily; rinse and gargle mouth with water after each use. 0 7 Active esomeprazole mag trihydrate(NEXIU M 40 MG CAP) Take one(1) capsule daily. 0 9 Active mometasone furoate(NASONEX 50 MCG/ACTUATION SPRAY) [place] twice in each nostril once daily. 0 9 Active montelukast (SINGULAIR) 10 mg tablet Take 10 mg by mouth daily at bedtime. Active MULTIVIT-MINERAL S/FERROUS GLUC (CENTRAM-CARE ORAL) Take by mouth twice daily. Active cyclobenzaprine (FLEXERIL) 10 mg tablet Active Cholecalciferol, Vitamin D3, 125 mcg (5,000 unit) cap Active metFORMIN ER (GLUCOPHAGE XR) 500 mg 24 hr tablet Take 2 tablets by mouth twice daily. 360 tablet 3 2 Active venlafaxine ER (EFFEXOR XR) 37.5 mg 24 hr capsule take one a day, if tolerated after two weeks increase to two 60 capsule 3 2 Active levothyroxine (SYNTHROID) 200 mcg tablet Take one tablet daily. 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 Metabolic syndrome 09/20/2015 Family History Medical History Relation Comments Hypertension Brother ND Brother Diabetes Father Ischemic Heart Disease Father Kidney failure Father Stroke Father Pulmonary embolism Mother pituitary tumor Mother Relation Status Comments Brother Alive Father Mother Social History Tobacco Use Types Packs/Day Years Used Date Smoking Tobacco: Never Smokeless Tobacco: Never Alcohol Use Standard Drinks/Week Comments Not Currently 0 (1 standard drink = 0.6 oz pur e alcohol) rarely PHQ-2 Answer Date Recorded PHQ-2 score 4 10/06/2021 Area Deprivation Index Answer Date Devon rded National Score (1-100), lower number is lower ri sk 73 06/07/2022 State Score (1-10), lower number is lower risk N ot on file 06/07/2022 Data from: https://www.neighborhoodatlas.medicine.[facility].edu/. Last address used for calculation [address] 06/07/2022 Comments No Sex and Gender Information Value Date Recorded Sex Assigned at Female 06/14/2021 10:20 PM EST Legal Sex Female 8:11 AM EST Gender Identity Female 06/14/2021 10:20 PM EST Sexual Orientation Not on file Last Filed Vital Signs Vital Sign Reading Time Taken Comments Blood Pressure 155/93 10/07/2021 1:46 PM EDT Pulse 94 10/07/2021 1:46 PM EDT Temperature 37.1 C (98.7 F) 06/26/2008 12:30 PM EST Respiratory Rate - - Oxygen Saturation - - Inhaled Oxygen Concentration - - Weight 125.8 kg (277 lb 6.4 oz) 10/07/2021 1:46 PM EDT Height 165.1 cm (5' 5 ) 03/30/2016 3:51 PM EST Body Mass Index 46.16 03/30/2016 3:51 PM EST Plan of Treatment Health Maintenance Due Date Last Done Comments Anxiety Screening 09/10/1985 Depression Screening 09/10/1985 HIV Screening 09/10/1985 Hepatitis B Vaccine (1 of 3 - 19+ 3-dose series) 09/10/1986 Cervical Cancer Screening 09/10/[address] Colonography 09/10/2012 Cologuard (FIT-DNA) 09/10/2012 Colonoscopy 09/10/2012 Colorectal Cancer Screening 09/10/2012 Fecal Occult Blood 09/10/2012 Lipid Screening 09/10/2012 Sigmoidoscopy 09/10/2012 Pneumococcal Vaccine: 50+ (1 of 1 - PCV) 09/10/2017 Shingrix Vaccine (1 of 2) 09/10/2017 DTaP,Tdap,Td Vaccine (2 - Td or Tdap) 12/15/2021 12/16/2011 Covid-19 Vaccine (3 - 2023-2 5 season) 2024 09/23/2020, 09/02/2020 Diabetes Screening 10/07/2024 10/07/2021, 0 10/07/2021, 06/16/2021, Additional history exists Influenza Vaccine (Season Ended) 2025 03/15/20 21 Hepatitis C Screening Completed 05/16/2007 Procedures Procedure Name Priority Date/Time Associated Diagnosis Comments COMPREHENSIVE METABOLIC PANEL Routine 10/07/2021 2:42 PM EDT Controlled type 2 diabetes mellitus without complication, without long-term current use of insulin (HCC) HEP REMOTE PANEL BL Routine 05/16/2007 2 :25 PM EST Myalgia And Myositis Nos from Last 3 Months or Most Recently Relevant to Health Maintenance Results * (ABNORMAL) COMP METABOLIC PANEL (10/07/2021 2:42 PM EDT) Pathologist [facility] [place] Protein, Total 7.3 6.3 - 8.0 g/dL 10/07/2021 8:04 PM EDT [facility] Albumin 4.8 3.9 - 4.9 g/dL 10/07/2021 8:04 PM EDT [facility] Calcium, Total 10.3(H) 8.5 - 10.2 mg/dL 10/07/2021 8:04 PM EDT [facility] Bilirubin, Total 0.5 0.2 - 1.3 mg/dL 10/07/2021 8:04 PM EDT [facility] Alkaline Phosphatase 72 34 - 123 U/L 10/07/2021 8:04 PM EDT [facility] AST 17 13 - 35 U/L 10/07/2021 8:04 PM EDT [facility] ALT 24 7 - 38 U/L 10/07/2021 8:04 PM EDT [facility] Glucose 124(H) 74 - 99 mg/dL 10/07/2021 8:04 PM EDT [facility] Comment: The [place] Diabetes Association (ADA) provides guidance for cutoff [...] Standards of Medical Care in Diabetes 2016, [place] [employer] Association. Diabetes Care. 2016.39(Suppl 1). BUN 18 7 - 21 mg/dL 10/07/2021 8:04 PM EDT [facility] Creatinine 0.70 0.58 - 0.96 mg/dL 10/07/2021 8:04 PM EDT [facility] Sodium 139 136 - 144 mmol/L 10/07/2021 8:04 PM EDT [facility] Potassium 4.1 3.7 - 5.1 mmol/L 10/07/2021 8:04 PM EDT [facility] Chloride 100 97 - 105 mmol/L 10/07/2021 8:04 PM EDT [facility] CO2 28 22 - 30 mmol/L 10/07/2021 8:04 PM EDT [facility] Anion Gap 11 9 - 18 mmol/L 10/07/2021 8:04 PM EDT [facility] Estimated Glomerular Filtration Rate 103 >=60 mL/min/1. 73m 10/07/2021 8:04 PM EDT [facility] Comment:Estimated Glomerular Filtration Rate (eGFR) is calculated using the 2020 CKD-EPI creatinine equation. This equation utilizes serum creatinine, sex, and age as parameters. The creatinine assay has traceable calibration to isotope dilution- mass spectrometry. Refer to KDIGO guidelines for clinical interpretation. In patients with unstable renal function, e.g. those with acute kidney injury, the eGFR may not accurately reflect actual GFR. Blood BLOOD SPECIMEN / Unknown Venipuncture / Unknown 10/07/2021 2:42 PM EDT 10/07/2021 2:42 PM EDT us Neto Ansari MD LABORATORY Final Result [facility] [place] [address], * HEP REMOTE PANEL BL (05/16/2007 2:25 PM EST) Hep B Core Ab, Total Negative NEGAT [facility] Hep C Antibody IA Negative NEGAT [facility] HBsAg Negative NEGAT [facility] Hep B Surface Ab, Qual Negative NEGAT [facility] Comment: A negative Hepatitis B Surface Antibody is indicative of: 1)no prior exposure to HBV, 2)lack of antibody response to an acute or chronic HBV infection, 3)lack of antibody response to HBV vaccination, or, 4)loss of immunity that followed either vaccination or infection. Blood specimen (specimen) BLOOD SPECIMEN / Unknown 05/16/2007 2:25 PM EST Leena Seymour MD LABORATORY Final Result [facility] [address] [place] [address] from Last 3 Months or Most Recently Relevant to Health Maintenance Insurance [employer] Care Teams Actuarial Internship Relationship Specialty Start Date End Date Joe Barksdale DO [address] [place] [address] PCP - General Family Medicine 08/01/18
--- OUTSIDE RECORDS SUMMARY | 2024-11-20 10:51 | XMS_ITS | Clinical Summary ---
Author Organization [facility] Address [address] [place] [address] Care Team Providers Care Unix Manager Name Role Phone Joe Barksdale DO Primary Care Provider Unavail able Social History Tobacco Use Types Packs/Day Years Used Date Smoking Tobacco: Never Assessed Comments Unknown Sex and Gender Information Value Date Recorded Sex Assigned at Not on file Legal Sex Female 4:54 PM EDT Gender Identity Not on file Sexual Orientation Not on file Plan of Treatment Not on file Insurance [employer] Care Teams Unix Manager Relationship Specialty Start Date End Date Joe Barksdale DO PCP - General Family Medicine 09/17/18
--- OUTSIDE RECORDS SUMMARY | 2024-11-20 10:51 | XMS_ITS | Clinical Summary ---
Author Organization [facility] Address [address] [place] [address] Care Team Providers Care Refrigerator Cabinetmaker Name Role Phone Joe Barksdale Primary Care Provider [phone] Allergies Active Allergy Reactions Criticality Noted Date Comments Cefuroxime Itching 05/16/2007 nerve difficulty Clarithromycin Itching,Unknown 05/16/2007 nerve difficulty Fluconazole Itching 06/16/2021 Gatifloxacin Itching 05/16/2007 Other Reaction(s): Unknown nerve difficulty Levofloxacin Itching,Unknown 05/16/2007 nerve difficulty Lorazepam Unknown 06/16/2021 Medications albuterol 90 mcg/actuation inhaler Inhale 1 puff every 4 (four) hours if needed. 5 Active cetirizine (ZyrTEC) 10 mg tablet Take 10 mg by mouth in the morning. 7 Active colestipol (Colestid) 1 gram tablet Take 1 g by mouth in the morning. 4 Active cyclobenzaprine (Flexeril) 10 mg tablet Take 10 mg by mouth if needed in the morning and at bedtime. Active esomeprazole (NexIUM) [address] capsule Take 40 mg by mouth before breakfast. Active estrogens, conjugated, (Premarin) 0.45 mg tablet Take 0.45 mg by mouth in the morning. 1 Active fluticasone propion-salmeteroL (Advair Diskus) 250-50 mcg/dose diskus inhaler Inhale 1 puff two times daily. 7 Active glimepiride (Amaryl) 1 mg tablet Take 1 mg by mouth before breakfast. 3 Active levothyroxine (Synthroid, Levoxyl) 25 mcg tablet Take 25 mcg by mouth before breakfast. Active levothyroxine (Synthroid) 200 mcg tablet Take 200 mcg by mouth before breakfast. 2 Active losartan (Cozaar) 50 mg tablet Take 50 mg by mouth in the morning. 3 Active meclizine (Antivert) 25 mg tablet Take 25 mg by mouth if needed in the morning, at noon, and at bedtime. 4 Active montelukast (Singulair) 10 mg tablet Take 10 mg by mouth at bedtime. 1 Active ondansetron ODT (Zofran-ODT) 4 mg disintegrating tablet Take 4 mg by mouth every 8 (eight) hours if needed. 4 Active venlafaxine XR (Effexor-XR) 37.5 mg 24 hr capsule Take 37.5 mg by mouth in the morning. 2 Active triamterene-hydroCH LOROthiazide (Dyazide) 37.5-25 mg capsule Take 1 capsule by mouth once daily in the morning. 4 Active dilTIAZem CD (Cardizem CD) 240 mg 24 hr capsuleIndications: Primary hypertension Take 1 capsule (240 mg) by mouth in the morning. 90 capsule 3 5 08/26/19 26 Active aspirin 81 mg chewable tabletIndications:O ther chest pain Chew 1 tablet (81 mg) in the morning. 90 tablet 3 5 08/26/19 26 Active atorvastatin (Lipitor) 20 mg tabletIndications:M ixed hyperlipidemia Take 2 tablets (40 mg) by mouth in the evening. 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 4 Palpitation 10/11/2023 Polyarthralgia 10/11/2023 Seasonal allergies 10/11/2023 UTI (urinary tract infection) 10/11/2023 Vitamin D deficiency 10/11/2023 Diabetes 09/24/2023 Asymmetric SNHL (sensorineural hearing loss) 10/2023 Right-sided tinnitus 09/24/2023 Cholesteatoma of attic of ear, 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 Pulsatile tinnitus of right ear 08/21/2023 Abnormal taste in mouth 10/04/2022 Allergic rhinitis due to animal hair and dander 10/04/2022 Gastroesophageal reflux disease with esophagitis 10/04/2022 Type 2 diabetes mellitus wit h hyperglycemia, without long-term current use of insulin 10/11/2021 Binge eating disorder 09/20/2015 BMI 50.0-59.9, adult 09/20/2015 CFS (chronic fatigue syndrome) 09/20/2015 Fibromyalgia 09/20/2015 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 Metabolic syndrome 09/20/2015 Encounters Date Type Department Care Team Description 08/25/2024 11:00 AM EDT Office Visit [address] [address] Ambrose Espino MD Palpitations (Primary Dx); Primary hypertension; Shortness of breath; Other chest pain; Mixed hyperlipidemia from Last 3 Months Family History Medical History Relation Name Comments Heart attack Father Kidney disease Father Pulmonary embolism Mother Relation Name Status Comments Brother Alive Father Mother Social History Tobacco Use Types Packs/Day Years Used Date Smoking Tobacco: Never Smokeless Tobacco: Never Tobacco Cessation:Counseling Given: Not Answered Alcohol Use Standard Drinks/Week Comments Yes 0 (1 standard drink = 0.6 oz pur e alcohol) occasional Comments Unknown Sex and Gender Information Value Date Recorded Sex Assigned at Not on file Legal Sex Female 8:53 AM EDT Gender Identity Not on file Sexual Orientation Not on file Last Filed Vital Signs Vital Sign Reading Time Taken Comments Blood Pressure 150/93 08/25/2024 11:15 AM EDT Pulse 98 08/25/2024 11:15 AM EDT Temperature - - Respiratory Rate - - Oxygen Saturation 96% 08/25/2024 11:15 AM EDT Inhaled Oxygen Concentration - - Weight 128 kg (283 lb) 08/25/2024 11:15 AM EDT Height 165.1 cm (5' 5 ) 08/25/2024 11:15 AM EDT Body Mass Index 47.09 08/25/2024 11:15 AM EDT Plan of Treatment Upcoming Encounters Date Type Department Care Team (Late st Contact Info) Description 12/15/2024 10:30 AM EDT Office Visit [facility] [address] [place] [address] Ambrose Espino MD [address] [facility] [place] [id number] Health Maintenance Due Date Last Done Comments CT Colonography 1967 Colonoscopy 1967 Colorectal Cancer Screening 1967 Diabetes: Hemoglobin A1C 1967 FIT-DNA 1967 FIT 1967 FOBT 1967 Sigmoidoscopy 1967 Diabetes: Retinopathy Screening 09/10/1977 Depression Screening 1979 Diabetes: Urine Protein Screening 09/10/1986 Hepatitis B Vaccines (1 of 3 - 19+ 3-dose series) 09/10/1986 Pneumococcal Vaccine: Pediatrics (0 to 5 Years) and At-Risk Patients (6 to 64 Years) (1 of 2 - PCV) 09/10/1986 Pap Smear 09/10/1988 Adult Tetanus 09/10/1989 Cervical Cancer Screening 09/10/1997 HPV/Cotest 09/10/1997 Mammogram 2007 Zoster Vaccines (1 of 2) 09/10/2017 COVID-19 Vaccine (2023-2 5 season) 2024 09/23/2020, 09/02/2020 Influenza Vaccine (#1) 2025 HIB Vaccines Aged Out No longer eligi ble based on patient's age to complete this topic HPV Vaccines Aged Out No longer eligi ble based on patient's age to complete this topic IPV Vaccines Aged Out No longer eligi ble based on patient's age to complete this topic Meningococcal B Vaccine Aged Out No l onger eligible based on patient's age to complete this topic Meningococcal Vaccine Aged Out No sandip shy eligible based on patient's age to complete this topic Rotavirus Vaccines Aged Out No longer eligible based on patient's age to complete this topic Insurance [employer] Care Teams Refrigerator Cabinetmaker Relationship Specialty Start Date End Date Joe Barksdale DO [address] [place] [address] PCP - General Family Medicine 08/22/24
--- OUTSIDE RECORDS SUMMARY | 2024-11-20 10:51 | XMS_ITS | Encounter Summary ---
Author Organization [facility] Address [address] [place] [address] Care Team Providers Care Brass Burnisher Name Role Phone Jose Luis Rodriguez Primary Care Provider [phone] Joe Barksdale DO Primary Care Provider [phone] Source Comments In the event this information is protected by the Federal Confidentiality of Alcohol and Drug AbusePatient Records regulations: The Federal rules restrict any use of the information to criminally investigate or prosecute any alcohol or drug abuse patient.[facility] Encounter Details Date Type Department Care Team (Late st Contact Info) Description 11/13/2016 Patient Msg Functional Medicine [address] [address] [place] [address] [place] [address] Appointment Cancellation Request Social History Tobacco Use Types Packs/Day Years [...] on filedocumented in this encounter Care Teams Brass Burnisher Relationship Specialty Start Date End Date Jennifer Jose Luis [address]div[address] [place] [address] PCP - General 03/16/08 07/31/18 Joe Barksdale DO [address] [place] [address] PCP - General Family Medicine 08/01/18 documented as of this encounter
--- OUTSIDE RECORDS SUMMARY | 2024-11-20 10:51 | XMS_ITS | Encounter Summary ---
Author Organization [facility] Address [address] [place] [address] Care Team Providers Care Analytics Intern Name Role Phone Joe Barksdale MD Primary Care Provider [phone] Encounter Details Date Type Department Care Team (Late st Contact Info) Description 10/04/2022 Abstract [facility] [address] [facility] [address] [place] [address] Livia Kirk, HAILEY 112 [facility] [address] [place], [place] [id number] Social History Tobacco Use Types Packs/Day Years Used Date Smoking Tobacco: Never Smokeless Tobacco: Never Alcohol Use Standard Drinks/Week Comments Yes 1 (1 standard drink = 0.6 oz pur e alcohol) Comments Unknown Sex and Gender Information Value Date Recorded Sex Assigned at Female 04/17/2023 1:50 PM EST Legal Sex Female 6:44 PM EDT Gender Identity Female 04/17/2023 1:50 PM EST Sexual Orientation Not on file documented as of this encounter Plan of Treatment Not on file documented as of this encounter Visit Diagnoses Not on filedocumented in this encounter Care Teams Analytics Intern Relationship Specialty Start Date End Date Joe Barksdale MD [address] [place] [address] [place] [address] PCP - General Family Medicine 10/18/22 documented as of this encounter
--- OUTSIDE RECORDS SUMMARY | 2024-11-20 10:51 | XMS_ITS | Encounter Summary ---
Author Organization [facility] Address [address] [place] [address] Care Team Providers Care Office Machine Installer Name Role Phone Jeff Jon MD Primary Care Provider [phone] Encounter Details Date Type Department Care Team (Late st Contact Info) Description 09/04/2023 Clinisync Result Encounter [facility] External Department Unsolicited Jennie Guillermo MD [address] [facility] [address] [place] [id number] Social History Tobacco Use Types Packs/Day Years Used Date Smoking Tobacco: Former Cigarettes Smokeless Tobacco: Never Alcohol Use Standard Drinks/Week Comments Not Currently 1 (1 standard drink = 0.6 oz pur e alcohol) Comments Unknown Sex and Gender Information Value Date Recorded Sex Assigned at Female 04/17/2023 1:50 PM EST Legal Sex Female 6:44 PM EDT Gender Identity Female 04/17/2023 1:50 PM EST Sexual Orientation Not on file documented as of this encounter Plan of Treatment Not on file documented as of this encounter Procedures Procedure Name Priority Date/Time Associated Diagnosis Comments CT INTERNAL AUDITORY CANALS/POSTERIOR FOSSA W IV CONTRAST 09/04/2023 4:52 PM EDT documented in this encounter Results * CT internal auditory canals/posterior fossa w IV contrast (09/04/2023 4:52 PM EDT) Anatomical Region Laterality Modality Head, Neck Computed Tomogra phy 09/04/2023 4:52 PM EDT Narrative 09/04/2023 4:54 PM EDT [address] [address] [address] Scan Report Signed Patient: CANELO SINGH MR#: [id number] : 1965 Acct:[id number] Age/Sex: 57 / F ADM Date: 09/04/23 Loc: CT Attending Dr: Jennie Guillermo M.D. Ordering Physician: Jennie Guillermo M.D. Date of Service: 09/04/23 Procedure(s): CT int auditory canals w con Accession Number(s): [id number] cc: JEFF JON [place] [address] Patient Name: CANELO SINGH MRN: [id number] date: 1965 Sex: F Assigned Patient Location: CT Current Patient Location: CT Accession/Order Number: [id number] Exam Date: 09/04/2023 13:20 Report Date: 09/04/2023 16:52 At the request of: JENNIE GUILLERMO Procedure: CT int auditory canals w con EXAM: CT int auditory canals w con HISTORY: Pulsatile Tinnitus Of Right Ear H93.A1, Cholesteatoma Ear a COMPARISON: CT brain 08/07/2022 TECHNIQUE: Axial helical CT images of the temporal bones were obtained without contrast. In addition the sagittal and coronal reformats were also obtained. Dose reduction techniques were achieved by using automated exposure control and/or adjustment of mA and/or kV according to patient size and/or use of iterative reconstruction technique. FINDINGS: The study demonstrates normal appearance of the external auditory canals, tympanic membranes, middle ear ossicles, the scutum, the Prussak's space and middle ear cavity. The internal ear structures are also normal in appearance on both sides. There is no suggestion of cochlear or fenestral otosclerosis or dehiscence of the superior semicircular canal. The internal auditory canals are normal and symmetric in size and configuration. The facial nerves demonstrate normal course and caliber. There is mild opacification of right-sided mastoid air cells. The left-sided mastoid air cells are clear. The temporomandibular joints (TMJ) are unremarkable. Visualized brain parenchyma, sinuses, and orbits are unremarkable. CT/CT int auditory canals w con IMPRESSION: Mild chronic right mastoid effusion. Otherwise, unremarkable temporal bone CT. Electronically authenticated by: DOYLE VEE Date: 09/04/2023 16:52 Dictated By: DOYLE VEE M.D. Signed By: 09/04/231653 DD/ 51 TD/TT: Manager Water: Procedure Note Radiology, Radiologist, MD - 09/04/2023 [place] [address] CT Scan Report Signed Patient: CANELO SINGH LMR#: [id number] : 1965Acct:[id number] Age/Sex: 57 / FADM Date: 09/04/23 Loc: CT Attending Dr: Jennie Guillermo M.D. Ordering Physician: Jennie Guillermo M.D. Date of Service: 09/04/23 Procedure(s): CT int auditory canals w con Accession Number(s): [id number] cc: JEFF JON [place] [address] Patient Name: CANELO SINGH MRN: [id number] date: 1965 Sex: F Assigned Patient Location: CT Current Patient Location: CT Accession/Order Number: [id number] Exam Date: 09/04/2023 13:20 Report Date: 09/04/2023 16:52 At the request of: JENNIE GUILLERMO Procedure: CT int auditory canals w con EXAM: CT int auditory canals w con HISTORY: Pulsatile Tinnitus Of Right Ear H93.A1, Cholesteatoma Ear a COMPARISON: CT brain 08/07/2022 TECHNIQUE: Axial helical CT images of the temporal bones were obtainedwithout contrast. In addition the sagittal and coronal reformats were alsoobtained. Dose reduction techniques were achieved by using automated exposurecontrol and/or adjustment of mA and/or kV according to patient size and/or use of iterative reconstruction technique. FINDINGS: The study demonstrates normal appearance of the external auditory canals, tympanic membranes, middle ear ossicles, the scutum, the Prussak's spaceand middle ear cavity. The internal ear structures are also normal in appearance on both sides.There is no suggestion of cochlear or fenestral otosclerosis or dehiscence ofthe superior semicircular canal. The internal auditory canals are normal and symmetric in size and configuration. The facial nerves demonstrate normal course and caliber.There is mild opacification of right-sided mastoid air cells. The left-sidedmastoid air cells are clear. The temporomandibular joints (TMJ) are unremarkable. Visualized brain parenchyma, sinuses, and orbits are unremarkable. CT/CT int auditory canals w con IMPRESSION: Mild chronic right mastoid effusion. Otherwise, unremarkable temporal boneCT. Electronically authenticated by: DOYLE VEE Date: 09/04/2023 16:52 Dictated By: DOYLE VEE M.D. Signed By:09/04/231653 DD/ 51 TD/TT: Manager Water: us Jennie Guillermo MD IMG CT PROCEDURES Final Resul t documented in this encounter Visit Diagnoses Not on filedocumented in this encounter Care Teams Office Machine Installer Relationship Specialty Start Date End Date Jeff Jon MD [address] [place] [address] [place] [address] PCP - General Family Medicine 10/18/22 documented as of this encounter
--- OUTSIDE RECORDS SUMMARY | 2024-11-20 10:51 | XMS_ITS | Clinical Summary ---
Author Organization [facility] Address [address] [place] [address] Care Team Providers Care Recovery Manager Name Role Phone Joe Barksdale MD Primary Care Provider [phone] Allergies Active Allergy Reactions Criticality Noted Date Comments Cefuroxime Itching 05/16/2007 nerve difficulty Clarithromycin Diarrhea,Itching Low 05/16/2007 nerve difficulty Gatifloxacin GI intolerance,Itching 05/16/2007 Other Reaction(s): Unknown Other Reaction(s): Unknown nerve difficulty Levofloxacin Itching 05/16/2007 Other Reaction(s): Abdominal Pain, itches/pain nerve difficulty Lorazepam Unknown 06/16/2021 Medications metFORMIN (Glucophage) 500 MG tablet Take 500 mg by mouth in the morning. Take with meals. Active Fluticasone-Sa lmeterol (Advair Diskus) 250-50 MCG/ACT aerosol powder inhale 1 puff by inhalation route 2 times every day in the morning and evening approximately 12 hours apart Inhalation Active levothyroxine (Synthroid) 175 MCG tablet take 1 tablet by oral route every day Oral Active esomeprazole (NexIUM) [address] capsule Take 40 mg by mouth in the morning. Take before meals. Active cyclobenzaprin e (Flexeril) 10 MG tablet Take 10 mg by mouth at bedtime. Active cetirizine (ZyrTEC) 10 MG tablet Take 10 mg by mouth in the morning. Active montelukast (Singulair) 10 MG tablet Take 10 mg by mouth at bedtime. Active clotrimazole-b etamethasone (Lotrisone) cream Clotrimazole-Beta methasone Active mometasone (Elocon) 0.1 % cream Elocon Active meloxicam (Mobic) 15 MG tablet Take 15 mg by mouth in the morning. 2 Active fluticasone (Flonase) 50 MCG/ACT nasal spray Administer 2 sprays into each nostril in the morning. 3 Active cholecalcifero l (Vitamin D-3) 125 MCG (5000 UT) capsule Active glimepiride (Amaryl) 1 MG tablet TAKE 1 TABLET BY MOUTH EVERY DAY WITH BREAKFAST OR THE FIRST MAIL MEAL OF THE DAY 3 Active losartan (Cozaar) 50 MG tablet 3 Active triamterene-hy droCHLOROthiaz aleksandr (Dyazide) 37.5-25 MG capsuleIndicat ions:Asymmetri c SNHL (sensorineural hearing loss) Take 1 capsule by mouth in the morning. 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 Palpitation 10/11/2023 Polyarthralgia 10/11/2023 Seasonal allergies 10/11/2023 UTI (urinary tract infection) 10/11/2023 Vitamin D deficiency 10/11/2023 Asymmetric SNHL (sensorineural hearing loss) 10/2023 Right-sided tinnitus 09/24/2023 Diabetes 09/24/2023 Pulsatile tinnitus of right ear 08/21/2023 Cholesteatoma of attic of ear, 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 Abnormal taste in mouth 10/04/2022 Allergic rhinitis due to animal hair and dander 10/04/2022 Gastroesophageal reflux disease with esophagitis 10/04/2022 Mixed conductive and sensori neural hearing loss of right ear with restricted hearing of left ear 10/04/2022 Sensorineural hearing loss, bilateral 12/16/2018 Binge eating disorder 09/20/2015 BMI 50.0-59.9, adult 09/20/2015 CFS (chronic fatigue syndrome) 09/20/2015 Fibromyalgia 09/20/2015 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 Metabolic syndrome 09/20/2015 Resolved Problems Problem Noted Date Diagnosed Date Resolved Date Porokeratosis 10/04/2022 10/04/2022 Seasonal allergic rhinitis due to pollen 10/04/2022 10/04/2022 Immunizations Immunization Administration Dates Next Due Tdap 12/16/2011 Family History Medical History Relation Name Comments Diabetes Father Heart failure Father Hyperlipidemia Father Stroke Father Pulmonary embolism Mother Hyperlipidemia Sibling Relation Name Status Comments Father Mother Sibling Social History Tobacco Use Types Packs/Day Years Used Date Smoking Tobacco: Never Smokeless Tobacco: Never Tobacco Cessation:Counseling Given: Not Answered Alcohol Use Standard Drinks/Week Comments Yes 1 (1 standard drink = 0.6 oz pur e alcohol) Rarely Comments Unknown Sex and Gender Information Value Date Recorded Sex Assigned at Female 04/17/2023 1:50 PM EST Legal Sex Female 6:44 PM EDT Gender Identity Female 04/17/2023 1:50 PM EST Sexual Orientation Not on file Last Filed Vital Signs Vital Sign Reading Time Taken Comments Blood Pressure 144/80 10/23/2023 3:27 PM EDT Pulse 85 07/22/2018 10:06 AM EST Temperature 36.3 C (97.3 F) 04/30/2023 12:54 PM EST Respiratory Rate 18 07/22/2018 10:06 AM EST Oxygen Saturation - - Inhaled Oxygen Concentration - - Weight 127 kg (279 lb) 10/23/2023 3:27 PM EDT Height 165.1 cm (5' 5 ) 10/23/2023 3:27 PM EDT Body Mass Index 46.43 10/23/2023 3:27 PM EDT Plan of Treatment Health Maintenance Due Date Last Done Comments CT Colonography 1967 Colonoscopy 1967 Colorectal Cancer Screening 1967 FIT-DNA 1967 FIT 1967 FOBT 1967 Sigmoidoscopy 1967 Pap Smear 09/10/1988 Cervical Cancer Screening 09/10/1997 HPV/Cotest 09/10/1997 Mammogram 2007 Influenza Vaccine (Season Ended) 2025 Insurance [employer] Care Teams Recovery Manager Relationship Specialty Start Date End Date Joe Barksdale MD [address] [place] [address] [place] [address] PCP - General Family Medicine 10/18/22
--- OUTSIDE RECORDS SUMMARY | 2024-11-20 10:51 | XMS_ITS | Encounter Summary ---
Author Organization [facility] Address [address] [place] [address] Care Team Providers Care Ladies' Hat Trimmer Name Role Phone Joe Barksdale MD Primary Care Provider [phone] Encounter Details Date Type Department Care Team (Late st Contact Info) Description 09/24/2023 Orders Only [facility] [address] [place] [address] Livia Kirk, HAILEY 112 [facility] [address] [place] [address] Asymmetric SNHL (sensorineural hearing loss); Right-sided tinnitus; SNHL (sensory-neural hearing loss), asymmetrical; Left-sided tinnitus; Otalgia, left; Pulsatile tinnitus of right ear; Cholesteatoma of attic of ear, right Social History Tobacco Use Types Packs/Day Years [...] documented as of this encounter Visit Diagnoses Diagnosis Asymmetric SNHL (sensorineural hearing loss) Sensorineural hearing loss, asymmetrical Right-sided tinnitus Unspecified tinnitus SNHL (sensory-neural hearing loss), asymmetrical Sensorineural hearing loss, asymmetrical Left-sided tinnitus Unspecified tinnitus Otalgia, left Pulsatile tinnitus of right ear Cholesteatoma of attic of ear, right documented in this encounter Care Teams Ladies' Hat Trimmer Relationship Specialty Start Date End Date Joe Barksdale MD [address] [place] [address] [place] [address] PCP - General Family Medicine 10/18/22 documented as of this encounter
--- OUTSIDE RECORDS SUMMARY | 2024-11-20 10:51 | XMS_ITS | Encounter Summary ---
Author Organization [facility] Address [address] [place] [address] Care Team Providers Care Enroute Controller Name Role Phone Joe Barksdale MD Primary Care Provider [phone] Encounter Details Date Type Department Care Team (Late st Contact Info) Description 10/04/2022 Abstract [facility] [address] [facility] [address] [place] [address] Livia Kirk, HAILEY 112 [facility] [address] [place], [place] [id number] Social History Tobacco Use Types Packs/Day Years [...] on filedocumented in this encounter Care Teams Enroute Controller Relationship Specialty Start Date End Date Joe Barksdale MD [address] [place] [address] [place] [address] PCP - General Family Medicine 10/18/22 documented as of this encounter
--- OUTSIDE RECORDS SUMMARY | 2024-11-20 10:51 | XMS_ITS | Encounter Summary ---
Author Organization [facility] Address [address] [place] [address] Care Team Providers Care Elevated Motorman Name Role Phone Joe Barksdale MD Primary Care Provider [phone] Encounter Details Date Type Department Care Team (Late st Contact Info) Description 08/14/2022 Abstract [facility] [address] [place] [address] Svetlana Allison, [facility] [address] [place] [address] Social History Tobacco Use Types Packs/Day Years [...] on filedocumented in this encounter Care Teams Elevated Motorman Relationship Specialty Start Date End Date Joe Barksdale MD [address] [place] [address] PCP - General Family Medicine 10/18/22 documented as of this encounter
--- OUTSIDE RECORDS SUMMARY | 2024-11-20 10:51 | XMS_ITS | Encounter Summary ---
Author Organization [facility] Address [address] [place] [address] Care Team Providers Care Denture Model Maker Name Role Phone Joe Barksdale MD Primary Care Provider [phone] Encounter Details Date Type Department Care Team (Late st Contact Info) Description 10/04/2022 Abstract [facility] [address] [facility] [address] [place] [address] Livia Kirk, [place] [address] [facility] [address] [place], [place] [id number] Social History Tobacco Use Types Packs/Day Years [...] on filedocumented in this encounter Care Teams Denture Model Maker Relationship Specialty Start Date End Date Joe Barksdale MD [address] [place] [address] [place] [address] PCP - General Family Medicine 10/18/22 documented as of this encounter
--- OUTSIDE RECORDS SUMMARY | 2024-11-20 10:51 | XMS_ITS | Encounter Summary ---
Author Organization [facility] Address [address] [id number] Care Team Providers Care Fretted Instruments Inspector Name Role Phone Joe Barksdale DO Primary Care Provider [phone] Source Comments In the event this information is protected by the Federal Confidentiality of Alcohol and Drug AbusePatient Records regulations: The Federal rules restrict any use of the information to criminally investigate or prosecute any alcohol or drug abuse patient.[facility] Encounter Details Date Type Department Care Team (Late st Contact Info) Description 06/23/2021 Patient Msg Endocrinology [address] [id number] Neto Ansari MD [address] [id number] results. Social History Tobacco Use Types Packs/Day Years Used Date Smoking Tobacco: Never Smokeless Tobacco: Never Alcohol Use Standard Drinks/Week Comments Not Asked 0 (1 standard drink = 0.6 oz pur e alcohol) Area Deprivation Index Answer Date Devon rded National Score (1-100), lower number is lower ri sk Not on file 04/26/2020 State Score (1-10), lower number is lower risk N ot on file 04/26/2020 Data from: https://www.neighborhoodatlas.[facility].edu/. Last address used for calculation Not on file 04/26/2020 Comments No Sex and Gender Information Value Date Recorded Sex Assigned at Female 06/14/2021 10:20 PM EST Legal Sex Female 8:11 AM EST Gender Identity Female 06/14/2021 10:20 PM EST Sexual Orientation Not on file COVID-19 Exposure Response Date Recorded In the last month, have you been in contact with someone who was confirmed or suspected to have Coronavirus / COVID-19? No / Unsure 06/16/2021 12:24 PM EST documented as of this encounter Plan of Treatment Not on file documented as of this encounter Visit Diagnoses Not on filedocumented in this encounter Care Teams Fretted Instruments Inspector Relationship Specialty Start Date End Date Joe Barksdale DO [address] [place] [address] PCP - General Family Medicine 08/01/18 documented as of this encounter
--- OUTSIDE RECORDS SUMMARY | 2024-11-20 10:51 | XMS_ITS | Clinical Summary ---
Author Organization [facility] Address [address] [place] [address] Phone Care Team Providers Care Media Associate Name Role Phone Joe Barksdale DO Primary Care Provider [phone] Social History Tobacco Use Types Packs/Day Years Used Date Smoking Tobacco: Never Assessed Comments Unknown Sex and Gender Information Value Date Recorded Sex Assigned at Not on file Legal Sex Female 1:13 PM EST Gender Identity Not on file Sexual Orientation Not on file Plan of Treatment Health Maintenance Due Date Last Done Comments CT Colonography 1967 Colonoscopy 1967 Colorectal Cancer Screening 1965 FIT-DNA (Cologuard) 1967 FIT 1965 HIV Screening 1965 Lipid Panel 1967 Sigmoidoscopy 1967 Yearly Adult Physical 1965 MMR Vaccines (1 of 1 - Stand galo series) 09/10/1968 Hepatitis C Screening 09/10/1985 Hepatitis B Vaccines (1 of 3 - 19+ 3-dose series) 09/10/1986 Cervical Cancer Screening 09/10/1988 HPV/Cotest 09/10/1988 Pap Smear 09/10/1988 DTaP/Tdap/Td Vaccines (1 - Tdap) 09/10/1989 Mammogram 2007 Pneumococcal Vaccine (1 of 1 - PCV) 09/10/2017 Zoster Vaccines (1 of 2) 09/10/2017 COVID-19 Vaccine ( - 2023-2 5 season) 2024 Influenza Vaccine (#1) 2025 HIB Vaccines Aged Out No longer eligi ble based on patient's age to complete this topic HPV Vaccines (No Doses Required) Completed Hepatitis A Vaccines Aged Out No long er eligible based on patient's age to complete this topic IPV Vaccines Aged Out No longer eligi ble based on patient's age to complete this topic Meningococcal Vaccine Aged Out No sandip shy eligible based on patient's age to complete this topic Rotavirus Vaccines Aged Out No longer eligible based on patient's age to complete this topic Care Teams Media Associate Relationship Specialty Start Date End Date Joe Barksdale DO PCP - General 09/27/22
--- OUTSIDE RECORDS SUMMARY | 2024-11-20 10:51 | XMS_ITS | Encounter Summary ---
Author Organization [facility] Address [address] [place] [address] Care Team Providers Care Ground Wood Supervisor Name Role Phone Jeff Jon MD Primary Care Provider [phone] Encounter Details Date Type Department Care Team (Late st Contact Info) Description 10/09/2023 Clinisync Result Encounter [facility] External Department Unsolicited Marianela Guillermo MD [address] [facility] [address] [place] [address] Social History Tobacco Use Types Packs/Day Years [...] Procedure Name Priority Date/Time Associated Diagnosis Comments MRI HEAD/BRAIN WO/W CONTR 10/09/2023 9:15 PM EDT documented in this encounter Results * MRI HEAD/BRAIN WO/W CONTR (10/09/2023 9:15 PM EDT) Anatomical Region Laterality Modality Radiographic Sulma ging 10/09/2023 9:15 PM EDT Narrative 10/09/2023 9:18 PM EDT The [address] [address] Magnetic Resonance Report Signed Patient: CANELO SINGH MR#: [id number] : 1965 Acct:[id number] Age/Sex: 58 / F ADM Date: 10/09/23 Loc: MRI Attending Dr: Marianela Guillermo M.D. Ordering Physician: Marianela Guillermo M.D. Date of Service: 10/09/23 Procedure(s): MR head/brain wo/w con Accession Number(s): [id number] cc: JEFF JON ; Marianela Guillermo M.D. The [address] [address] Patient Name: CANELO SINGH MRN: [id number] date: 1965 Sex: F Assigned Patient Location: MRI Current Patient Location: MRI Accession/Order Number: [id number] Exam Date: 10/09/2023 12:50 Report Date: 10/09/2023 21:15 At the request of: MARIANELA GUILLERMO Procedure: MR head/brain wo/w con MR head/brain wo/w con, 10/09/2023 12:50 PM EDT INDICATION: Asymmetric Sensorineural Hearing Loss H90.3 right ear tinnitus COMPARISON: Prior CT of the in temporal bone dated 09/04/2023 TECHNIQUE: Multiplanar, multisequential MRI images of brain were obtained without and with injection of contrast. FINDINGS: The cerebral sulci as well as ventricular system are appropriate for age. There is no restricted diffusion. Few hyperintensities on T2 and FLAIR images in the soto radiata and centrum semiovale with sparing of U fibers are nonspecific, statistically most likely consistent with microvascular ischemic changes. There is no intracranial mass, mass effect, midline shift, intra or extra-axial fluid collection or large hemorrhage. No abnormality of the semicircular canal is or cochlea vestibular nerves is noted. No abnormal enhancing lesion is noted. Normal flow-void in the intracranial vessels is noted. Nonspecific fluid within the right mastoid air cells is noted. The visualized portions of orbits, left mastoid air cells as well as paranasal sinuses are unremarkable. MR/MR head/brain wo/w con IMPRESSION: No abnormality of the cochlea vestibular nerves or semicircular canals is noted. Nonspecific fluid within the right mastoid air cells. Electronically authenticated by: RAMIREZ PATEL Date: 10/09/2023 21:15 Dictated By: Ramirez Patel M.D. Signed By: 10/09/232117 DD/ 14 TD/TT: Automotive Glass Mechanic: Procedure Note Radiology, Radiologist, MD - 10/09/2023 [place] [address] Magnetic Resonance Report Signed Patient: CANELO SINGH LMR#: [id number] : 1965Acct:[id number] Age/Sex: 58 / FADM Date: 10/09/23 Loc: MRI Attending Dr: Marianela Guillermo M.D. Ordering Physician: Marianela Guillermo M.D. Date of Service: 10/09/23 Procedure(s): MR head/brain wo/w con Accession Number(s): [id number] cc: JEFF JON ; Marianela Guillermo M.D. The [address] [id number] Patient Name: CANELO SINGH MRN: [id number] date: 1965 Sex: F Assigned Patient Location: MRI Current Patient Location: MRI Accession/Order Number: [id number] Exam Date: 10/09/2023 12:50 Report Date: 10/09/2023 21:15 At the request of: MARIANELA GUILLERMO Procedure: MR head/brain wo/w con MR head/brain wo/w con, 10/09/2023 12:50 PM EDT INDICATION: Asymmetric Sensorineural Hearing Loss H90.3 right ear tinnitus COMPARISON: Prior CT of the in temporal bone dated 09/04/2023 TECHNIQUE: Multiplanar, multisequential MRI images of brain were obtained without and with injection of contrast. FINDINGS: The cerebral sulci as well as ventricular system are appropriate for age. There is no restricted diffusion. Few hyperintensities on T2 and FLAIR images in the soto radiata andcentrum semiovale with sparing of U fibers are nonspecific, statistically mostlikely consistent with microvascular ischemic changes. There is no intracranial mass, mass effect, midline shift, intra or extra-axial fluid collection or large hemorrhage. No abnormality of the semicircularcanal is or cochlea vestibular nerves is noted. No abnormal enhancing lesion is noted. Normal flow-void in the intracranial vessels is noted. Nonspecific fluid within the right mastoid air cells is noted. The visualized portions of orbits, left mastoid air cells as well asparanasal sinuses are unremarkable. MR/MR head/brain wo/w con IMPRESSION: No abnormality of the cochlea vestibular nerves or semicircular canals is noted. Nonspecific fluid within the right mastoid air cells. Electronically authenticated by: RAMIREZ PATEL Date: 10/09/2023 21:15 Dictated By: Ramirez Patel M.D. Signed By:10/09/232117 DD/ 14 TD/TT: Automotive Glass Mechanic: us Marianela Guillermo MD IMG XR PROCEDURES Final Resul t documented in this encounter Visit Diagnoses Not on filedocumented in this encounter Care Teams Ground Wood Supervisor Relationship Specialty Start Date End Date Jeff Jon MD [address] [place] [address] [address] [id number] PCP - General Family Medicine 10/18/22 documented as of this encounter
[2024-11-24 16:08] LABS: Antinuclear Antibodies, IFA Negative (.)
== END 2024-11-20 10:47 | disposition home or self-care (01) ==
LOC: LAB 10:49
PROVIDERS: PCP Family Medicine
DX: R93.89 Abnormal findings on diagnostic imaging of other specified body structures (principal)
CPT/HCPCS: 36415; 85652; 86038; 86140; 86235; 86431

== ENCOUNTER 2024-11-20 10:55 | Outpatient (OUT) | payer OTHER, SELFPAY ==
--- OUTSIDE RECORDS SUMMARY | 2022-04-24 09:50 | XMS_ITS | Continuity of Care Document ---
Author Organization [facility] Address [address] [place] [address] Phone Care Team Providers Care Practice Professional Name Role Phone Sandra Borges MD Unavailable [...] Providers Copied on Encounter OFFICE/OUTPA TIENT VISIT, [facility], [address] [place], [address], [place] tel:[phone] [facility] skin cancer screening (chief complaint) Other seborrheic keratosisBenign neoplasm of skin, site unspecifiedNeop lasm of uncertain behavior of skin 2 Katerina Flores . [address] [facility] [place] [id number] , . tel:[phone] Family History Family Member Type Diagnosis Age At Onset No Information Payers Payer name Insurance type Covered libertarian ID Bee nunez(s) [facility] Medicare [facility] [id number] Medicaid [id number] Social History Type Description Quantity Date Captured [...] Future Order: Lab Order Slide On ly ([id number]), Collected on: , Sent on: Sent History [...] Mental Status Date Cognitive Assessment Orientation - [place] ed to time, place, person, situation. Patient Care Teams Name Effective Dates (start - stop) Status Members No Information
--- OUTSIDE RECORDS SUMMARY | 2024-11-20 11:00 | XMS_ITS | Encounter Summary ---
Author Organization [facility] Address [address] [place] [address] Care Team Providers Care Deaf And Hard Of Hearing Teacher Name Role Phone Jose Luis Rodriguez Primary Care Provider [phone] Joe Barksdale DO Primary Care Provider [phone] Source Comments In the event this information is protected by the Federal Confidentiality of Alcohol and Drug AbusePatient Records regulations: The Federal rules restrict any use of the information to criminally investigate or prosecute any alcohol or drug abuse patient.[facility] Encounter Details Date Type Department Care Team (Late st Contact Info) Description 11/13/2016 Patient Msg Functional Medicine [address] [address] [place] [address] [place] [address] Appointment Cancellation Request Social History Tobacco Use [...] on filedocumented in this encounter Care Teams Deaf And Hard Of Hearing Teacher Relationship Specialty Start Date End Date Jennifer Jose Luis Saldivar [address] [place] [address] PCP - General 03/16/08 07/31/18 Joe Barksdale DO [address] [place] [address] PCP - General Family Medicine 08/01/18 documented as of this encounter
[2024-11-20 11:47] LABS: Alanine Aminotransferase 33 U/L (14-59); Albumin Globulin Ratio 1.0; Albumin Level 3.4 g/dL (3.4-5.0); Alkaline Phosphatase 82 U/L (46-116); Anion Gap 14.3; Aspartate Amino Transferase 20 U/L (15-37); Blood Urea Nitrogen 15.0 mg/dL (7.0-18.0); Calcium 9.3 mg/dL (8.5-10.1); Carbon Dioxide 27.2 mmol/L (21.0-32.0); Chloride 104 mmol/L (98-107); Cholesterol 207 mg/dL (<=200); Estimated GFR (African America >60 (>=60 mL/min/1.73m^2); Estimated GFR (Non-African Ame >60 (>=60 mL/min/1.73m^2); Globulin 3.3 g/dL; Glucose 163 mg/dL (74-106); HDL Cholesterol 82 mg/dL (40-60); Potassium 4.5 mmol/L (3.5-5.1); Sodium 141 mmol/L (136-145); Total Protein 6.7 g/dL (6.4-8.2); Triglycerides 91 mg/dL (<=150); VLDL CHOLESTEROL 18.2 mg/dL
[2024-11-20 11:56] LABS: Free T3 3.27 pg/mL (2.18-3.98); Thyroid Stimulating Hormone 0.712 uIU/mL (0.358-3.740)
== END 2024-11-20 10:56 | disposition home or self-care (01) ==
LOC: LAB 10:57
PROVIDERS: PCP Family Medicine; Visit Provider Family Medicine
DX: E55.9 Vitamin D deficiency, unspecified (principal); Z79.899 Other long term (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; E78.2 Mixed hyperlipidemia; R35.1 Nocturia; E03.9 Hypothyroidism, unspecified; R93.89 Abnormal findings on diagnostic imaging of other specified body structures; E78.5 Hyperlipidemia, unspecified
CPT/HCPCS: 36415; 80053; 80061; 81003; 82248; 82306; 82550; 84439; 84443; 84481; 85652; 86038; 86140; 86235; 86431; 87086

== ENCOUNTER 2024-11-26 10:18 | Outpatient (OUT) | payer OTHER, SELFPAY ==
--- OUTSIDE RECORDS SUMMARY | 2024-11-20 13:50 | XMS_ITS | Continuity of Care Document ---
Author Organization [facility] Address [address] [place] [address] Phone Allergies, Adverse Reactions, Alerts Allergen Type Severity Reaction Last Updated Verified Status clarithromycin Allergy Unknown diarrhea October 24, 2024 10:07am Yes Active levofloxacin Allergy Unknown Abdominal Pain, itches/pain October 24, 2024 10:07am Yes Active gatifloxacin Allergy Unknown Abdominal Pain October 10:07am Yes Active Social History Smoking Status Status Start Date End Date Date of Observa tion Never smoked tobacco (finding) August 01, 2024 9:50am Observation Status Observation Response Date of Response Legal Sex Female (finding) Sex Assigned At Female August Family History Relationship Condition Age at Onset Recorded Date/T erlin brother Hypertension Unknown father History of stroke Unknown Hypertension Unknown Heart disease Unknown Diabetes mellitus Unknown Unknown Renal failure Unknown grandparent Diabetes mellitus Unknown Heart disease Unknown Hypertension Unknown Unknown mother Unknown Pulmonary embolism Unknown Problems Active Problems Medical Problem Onset Date Status Comments UTI (urinary tract infection) Unknown Active Acute cough Unknown Active Other long term care pharmacist (current) dr 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 Unknown Active Lumbar radiculopathy Unknown Active Sacroiliitis Unknown Active Hepatitis Unknown Active Lumbar stenosis Unknown Active Elevated blood pressure reading Unknown Active Fatigue Unknown Active Palpitation Unknown Active Diabetes Unknown Active Chronic pain Unknown Active Acute sinusitis Unknown Active Polyarthralgia Unknown Active Pulsatile tinnitus Unknown Active Anxiety Unknown Active Diarrhea Unknown Active Belching Unknown Active Seasonal allergies Unknown Active Hyperlipidemia Unknown Active Hypothyroidism Unknown Active Lumbosacral spondylosis Unknown Active Other chronic pain Unknown Active Wheezing Unknown Active Abnormal CT scan, chest Unknown Active CT c hest 08/05/24 done at [facility] Asymmetrical sensorineural h earing loss Unknown Active Shoulder pain, left Unknown Active Hip pain Unknown Active Cervical pain Unknown Active GERD (gastroesophageal reflu x disease) Unknown Active GERD (gastroesophageal reflu x disease) Unknown Active Abdominal pain Unknown Active Hypertension Unknown Active Nausea Unknown Active Tinnitus Unknown Active right sided tin nitus Vitamin D deficiency Unknown Active Vomiting Unknown Active Asthma Unknown Active Medications Medication Status Dose Units Route Directions Qty Days St art Date Stop Date End Date Instructions Adherence Levothyroxi ne 200 mcg tablet Discont inued 200 MCG PO Daily September 03, 2023 12:00a m [facility] 2023 9:14a m take first thing in the morning on an empty stomach, do not eat or drink for 30-45 min after taking Fluticasone Propion-Fabio meterol (Advair Diskus) 250-50 mcg/dose blister with device Active 1 INH INHALA TION Q12H 3 October 29, 2023 1:18pm Complies with drug therapy Cyclobenzap rine 10 mg tablet Discont inued 10 MG PO Daily at bedtime November 08, 2023 1:11pm November 08, 2023 3:01p m TAKE 1 TABLET AT BEDTIME; Refills: 0; Provider: Shamir Reeder Cyclobenzap rine 10 mg tablet Discont inued 10 MG PO Daily at bedtime November 08, 2023 3:00pm December 14, 2023 10:32 am TAKE 1 TABLET AT BEDTIME; Refills: 0; Provider: Shamir Reeder Cyclobenzap rine 10 mg tablet Discont inued 10 MG PO Daily at bedtime December 14, 2023 10:30a m Dec 2023 11:30 am TAKE 1 TABLET AT BEDTIME Cyclobenzap rine 10 mg tablet Discont inued 10 MG PO Daily at bedtime January 08, 2024 11:29a m [facility] 2023 9:14a m TAKE 1 TABLET AT BEDTIME Amoxicillin -Pot Clavulanate 875-125 mg tablet Discont inued 1 TAB PO Twice daily 09 03January 08, 2024 12:00a m [facility] 2023 12:37 pm with food Meloxicam 15 mg tablet Discont inued 0 .ROUTE .COMPLEX January 14, 2024 10:16a m Janua ry 2024 1:23p m TAKE 1 TABLET DAILY Metformin 500 mg tablet extended release 24 hr Discont inued 500 MG PO .[facility] January 14, 2024 10:36a m Aug[facility] t 2023 10:42 am 500 mg orally take 2 (500 mg) tabs twice a day with meals; Metformin 500 mg tablet extended release 24 hr Discont inued 0 .ROUTE .COMPLEX 360 January 14, 2024 10:41a m [facility] 2023 9:14a m TAKE 2 TABLETS TWICE A DAY WITH MEALS Metformin 500 mg tablet extended release 24 hr Discont inued 0 .ROUTE .COMPLEX 360 [facility] 2023 9:13am May 2024 1:23p m TAKE 2 TABLETS TWICE A DAY WITH MEALS Losartan 50 mg tablet Discont inued 50 MG PO Daily 90 [facility] 2023 9:14am September 08, 2024 10:07 am Levothyroxi ne 200 mcg tablet Discont inued 200 MCG PO Daily 90 [facility] 2023 9:14am August 18, 2024 10:58 am take first thing in the morning on an empty stomach, do not eat or drink for 30-45 min after taking Cyclobenzap rine 10 mg tablet Discont inued 10 MG PO Daily at bedtime 90 [facility] 2023 9:14am August 18, 2024 11:47 am TAKE 1 TABLET AT BEDTIME Montelukast (Singulair) 10 mg tablet Active 10 MG PO Daily at bedtime 90 [facility] 2023 9:15am Complies with drug therapy Esomeprazol e Magnesium (Nexium) 40 mg capsule,del ayed release(DR/ EC) Active 40 MG PO Daily 90 [facility] 2023 9:16am Complies with drug therapy Prednisone 20 mg tablet Discont inued 0 PO daily 18 [facility] 2023 1:00am [facility] 2024 1:16p m 3 tablets by mouth daily for 3 days, then 2 tablets for 3 days, then 1 tablet for 3 days, with food Levothyroxi ne 100 mcg tablet Active 200 MCG PO Daily 180 August 18, 2024 12:00a m take first thing in the morning on an empty stomach, do not eat or drink for 30-45 min after taking Complies with drug therapy Levothyroxi ne (Synthroid) 25 mcg tablet Discont inued 25 MCG PO Daily August 18, 2024 12:00a m September 08, 2024 10:58 am take first thing in the morning on an empty stomach, do not eat or drink anything for 30-45 min after taking. Take in addition to 200 MCG (2- 100 MCG tablets) daily for a total of 225 MCG daily Cyclobenzap rine 10 mg tablet Active 10 MG PO Daily at bedtime August 18, 2024 11:46a m TAKE 1 TABLET AT BEDTIME Complies with drug therapy Cetirizine (Zyrtec) 10 mg tablet Active 10 MG PO Daily August 18, 2024 11:46a m Complies with drug therapy Prednisone 20 mg tablet Discont inued 0 PO .with food or milk 18 September 23, 2024 10:19a m October 24, 2024 10:08 am take 3 tablets a day x3 days, 2 tabs a day x3 days and then 1 tab a day x3 days orally WITH FOOD OR MILK; Cyclobenzap rine 10 mg Tablet Discont inued 10 MG PO Three times daily as needed for Muscle Spasm September 14, 2017 12:00a m September 16, 2017 1:16p m Levothyroxi ne (Synthroid) 175 mcg Tablet Discont inued 175 MCG PO Daily September 14, 2017 12:00a m August 28, 2023 11:40 am Fluticasone Propion-Fabio meterol (Advair Diskus) 250-50 mcg/dose Blister With Device Discont inued 1 INH INHALA TION Q12H September 14, 2017 12:00a m October 29, 2023 1:20p m Cetirizine (Zyrtec) 10 mg Tablet Discont inued 10 MG PO Daily September 14, 2017 12:00a m August 18, 2024 11:47 am Esomeprazol e Magnesium (Nexium) 40 mg Capsule,Del ayed Release(Dr/ Ec) Discont inued 40 MG PO Daily September 14, 2017 12:00a m Decem 2023 9:16a m Mometasone (Nasonex) 50 mcg/actuati on [place],Non-A erosol Discont inued 2 SPRAY INTRAN CLARISSE Daily September 14, 2017 12:00a m [place] [facility] 2024 11:36 am Montelukast (Singulair) 10 mg Tablet Discont inued 10 MG PO Daily at bedtime September 14, 2017 12:00a m De[facility] slim 2023 9:15a m Estradiol (Vivelle-Do t) 0.0375 mg/24 hr Patch Semiweekly Discont inued 1 PATCH TRANSD ERML Once September 14, 2017 12:00a m August 28, 2023 11:12 am Metformin 500 mg Tablet Extended Release 24 Hr Discont inued 500 MG PO Every 48 hours September 14, 2017 12:00a m October 29, 2023 2:48p m Mometasone (Elocon) 0.1 % Cream Active 1 APPLIC TOPICA L Daily as needed for Rash September 14, 2017 12:00a m Complies with drug therapy Multivit-Mi n-Ferrous Gluconate (Centrum) 9 mg iron/15 mL Liquid Discont inued 2 TAB PO Daily September 14, 2017 12:00a m August 28, 2023 11:13 am Lisinopril 10 mg tablet Discont inued 10 MG PO Daily September 16, 2017 12:00a m August 28, 2023 11:13 am Metformin 500 mg tablet extended release 24 hr Discont inued 500 MG PO Daily October 29, 2023 2:48pm Augus t 2023 10:37 am Mometasone (Nasonex) 50 mcg/actuati on spray,non-a erosol Active 2 SPRAY INTRAN CLARISSE Daily as needed for allergic symptoms Februa 2024 11:35a m Complies with drug therapy Losartan 50 mg tablet Discont inued 50 MG PO Daily December 05, 2023 12:00a m Decem slim 2023 9:14a m Albuterol Sulfate (Proair Hfa) 90 mcg/actuati on HFA aerosol inhaler Discont inued 2 INH INHALA TION Every 6 hours as needed for shortness of breath or wheezing Novemb er 2023 1:02pm Novem slim 2023 1:04p m Albuterol Sulfate 90 mcg/actuati on HFA aerosol inhaler Active 2 INH INHALA TION Every 6 hours as needed for shortness of breath or wheezing 8.5 Novemb er 2023 1:03pm Complies with drug therapy Meloxicam 15 mg tablet Discont inued 15 MG PO Daily August 28, 2023 12:00a m Augus t 2023 10:17 am TAKE 1 TABLET DAILY; Refills: 0; Provider: Shamir Reeder Cyclobenzap rine 10 mg tablet Discont inued 10 MG PO Daily at bedtime August 28, 2023 12:00a m November 08, 2023 1:12p m TAKE 1 TABLET AT BEDTIME; Refills: 0; Provider: Shamir Reeder Glimepiride 1 mg tablet Discont inued 1 TAB PO Daily August 28, 2023 12:00a m August 28, 2023 10:09 am FreeTextSi tablet with breakfast or the first main meal of the day Orally Once a day; Note: Source Status: Start; Refills: 1; Qty: 90 Tablet; Provider: Shamir Diaz ( ) Losartan 50 mg tablet Discont inued 50 MG PO Daily August 28, 2023 12:00a m August 28, 2023 11:13 am FreeTextSi tablet Orally Once a day; Note: Source Status: Taking; Refills: 3; Qty: 90 Tablet; Provider: Kg Reynolds Cholecalcif laurent (Vitamin D3) 50 mcg (2,000 unit) tablet Discont inued 1 TAB PO Daily August 28, 2023 12:00a m August 28, 2023 10:48 am FreeTextSi tablet Orally Once a day; Note: Source Status: Taking; Provider: Shamir Reeder Albuterol Sulfate 2.5 mg /3 mL (0.083 %) solution for nebulizatio n Active 2.5 MG INHALA TION Every 6 hours as needed for shortness of breath or wheezing August 28, 2023 12:00a m 3 ml as needed Inhalation every 6 hrs; Note: Source Status: Continueprn; Provider: Jacky Carrillo Complies with drug therapy Albuterol Sulfate (Proair Hfa) 90 mcg/actuati on HFA aerosol inhaler Discont inued INHALA TION August 28, 2023 12:00a m 2023 1:03p m FreeTextSi inhalations Inhalation q4 hrs prn; Note: Source Status: Continueprn; Provider: Shamir Reeder Glimepiride 1 mg tablet Discont inued 1 MG PO Daily August 28, 2023 10:09a m August 28, 2023 11:12 am 1 tablet with breakfast or the first main meal of the day Orally Once a day; Note: Source Status: Start; Refills: 1; Qty: 90 Tablet; Provider: Shamir Diaz ( ) Cholecalcif laurent (Vitamin D3) 50 mcg (2,000 unit) tablet Active 2000 UNIT PO Daily August 28, 2023 10:48a m FreeTextSi tablet Orally Once a day; Note: Source Status: Taking; Provider: Shamir Reeder Complies with drug therapy Clotrimazol e-Betametha sone 1-0.05 % cream Discont inued 1 APPLIC TOPICA L Twice daily August 28, 2023 12:00a m Febru bill 2024 11:36 am FreeTextSi application Externally Twice a day; Note: Source Status: Takingprn; Refills: 3; Qty: 135 gm; Provider: Shamir Reeder Losartan 50 mg tablet Discont inued 50 MG PO Daily August 28, 2023 12:00a m September 26, 2023 2:52p m Levothyroxi ne 200 mcg tablet Discont inued 200 MCG PO Daily August 28, 2023 12:00a m August 28, 2023 11:42 am take first thing in the morning on an empty stomach, do not eat or drink anything for 30-45 min after taking Levothyroxi ne 200 mcg tablet Discont inued 200 MCG PO Daily August 28, 2023 11:41a m August 28, 2023 11:43 am take first thing in the morning on an empty stomach, do not eat or drink anything for 30-45 min after taking Levothyroxi ne (Synthroid) 200 mcg tablet Discont inued 200 MCG PO Daily August 28, 2023 12:00a m August 28, 2023 11:48 am take on an empty stomach first thing in the morning do not eat or drink for 30-45 min after taking Levothyroxi ne (Synthroid) 200 mcg tablet Discont inued 200 MCG PO Daily August 28, 2023 11:47a m September 03, 2023 12:49 pm take on an empty stomach first thing in the morning do not eat or drink for 30-45 min after taking Clotrimazol e-Betametha sone 1-0.05 % cream Active 1 APPLIC TOPICA L Twice daily as needed for as directed 2024 11:35a m FreeTextSi application Externally Twice a day; Note: Source Status: Takingprn; Refills: 3; Qty: 135 gm; Provider: Shamir Reeder Complies with drug therapy Triamterene -Hydrochlor othiazid 37.5-25 mg capsule Discont inued 1 CAP PO Every morning September 26, 2023 12:00a m Novem slim 2023 1:05p m Meloxicam 15 mg tablet Active 15 MG PO Daily 2024 1:22pm Complies with drug therapy Metformin 500 mg tablet extended release 24 hr Active 1000 MG PO .COMPLEX 2024 1:22pm 1,000 mg orally BID as normal; Complies with drug therapy Prednisone 20 mg tablet Discont inued 0 PO .with food or milk 2024 1:00am u 2024 11:36 am take 3 tablets a day x3 days, 2 tabs a day x3 days and then 1 tab a day x3 days orally WITH FOOD OR MILK; Diltiazem Hcl 240 mg capsule,ext ended release 24hr Discont inued MG PO September 01, 2024 12:00a m September 08, 2024 10:07 am Atorvastati n 20 mg tablet Active 20 MG PO Daily September 01, 2024 12:00a m Complies with drug therapy Aspirin 81 mg tablet,chew able Active 1 TAB PO Daily September 01, 2024 12:00a m Complies with drug therapy Prednisone 20 mg tablet Discont inued 0 PO .with food or milk 18 9 September 01, 2024 12:00a m September 23, 2024 10:19 am take 3 tablets a day x3 days, 2 tabs a day x3 days and then 1 tab a day x3 days orally WITH FOOD OR MILK; Diltiazem Hcl 240 mg capsule,ext ended release 24hr Active 240 MG PO Daily September 08, 2024 10:07a m Complies with drug therapy Prednisone 20 mg tablet Active 0 PO .COMPLEX 20 October 24, 2024 12:00a m 3 tabs a day x3 days then take 2 tabs a day x3 days then take 1 tab a day x3 then take 1/2 tablet a day x4 days with food or milk orally; Complies with drug therapy Amoxicillin -Pot Clavulanate 875-125 mg tablet Active 1 TAB PO Twice daily 20 October 24, 2024 12:00a m with food Complies with drug therapy Immunizations Immunization Event Date Not Given Reason Dose 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 Number Vaccine Information Statement (VIS) Detail Administration Location COVID-19 mRNA, Comirnaty (Pfizer) September 02, 2020 [id number] [facility] COVID-19 mRNA, Comirnaty (Pfizer) September 23, 2020 [id number] [facility] Tetanus, Diphtheria, Pertussis (Tdap) December 16, 2011 Trivalent Influenza Vaccine March 15, 2021 Patient Refused Advance Directives Advance Directive Response Recorded Date/ Time Advance Directives No September 14 9:20pm Insurance Providers Guarantor Laura Pathak Address [address] [place] [address] Contact Info. Home Phone: Payer Policy Id Subscriber's Name Subscriber Id Effectiv e Date Expiration Date John GUTIÉRREZ [id number] Bobby Noble [id number] [employer] [id number] Bobby Noble [id number]
--- OUTSIDE RECORDS SUMMARY | 2024-11-26 10:22 | XMS_ITS | Clinical Summary ---
Author Organization [facility] Address [address] [place] [address] Care Team Providers Care Retail Aide Name Role Phone Joe Barksdale DO Primary [...] Not on file Insurance [employer] Care Teams Retail Aide Relationship Specialty Start Date End Date Joe Barksdale DO PCP - General Family Medicine 09/17/18
--- OUTSIDE RECORDS SUMMARY | 2024-11-26 10:22 | XMS_ITS | Encounter Summary ---
Author Organization [facility] Address [address] [place] [id number] Care Team Providers Care Grab Jack Worker Name Role Phone Jose Luis Rodriguez Primary Care Provider [phone] Joe Barksdale DO Primary Care Provider [phone] Source Comments In the event this information is protected by the Federal Confidentiality of Alcohol and Drug AbusePatient Records regulations: The Federal rules restrict any use of the information to criminally investigate or prosecute any alcohol or drug abuse patient.[facility] Encounter Details Date Type Department Care Team (Late st Contact Info) Description 11/13/2016 Patient Msg Functional Medicine [address] [address] [place] [address] [place] [address] Appointment Cancellation Request Social History Tobacco Use [...] on filedocumented in this encounter Care Teams Grab Jack Worker Relationship Specialty Start Date End Date Jennifer Jose Luis Saldivar [address] [place] [address] PCP - General 03/16/08 07/31/18 Joe Barksdale DO [address] [place] [id number] PCP - General Family Medicine 08/01/18 documented as of this encounter
--- OUTSIDE RECORDS SUMMARY | 2024-11-26 10:22 | XMS_ITS | Encounter Summary ---
Author Organization [facility] Address [address] [id number] Care Team Providers Care It Project Lead Name Role Phone Joe Barksdale DO Primary Care Provider [phone] Source Comments In the event this information is protected by the Federal Confidentiality of Alcohol and Drug AbusePatient Records regulations: The Federal rules restrict any use of the information to criminally investigate or prosecute any alcohol or drug abuse patient.[facility] Encounter Details Date Type Department Care Team (Late st Contact Info) Description 06/23/2021 Patient Msg Endocrinology [address] [id number] Neto Ansari MD [address] [id number] results. Social History Tobacco Use Types Packs/Day [...] N ot on file 04/26/2020 Data from: https://www.neighborhoodatlas.[email or web address].edu/. Last address used for calculation Not on [...] on filedocumented in this encounter Care Teams It Project Lead Relationship Specialty Start Date End Date Joe Barksdale DO [address] [place] [address] PCP - General Family Medicine 08/01/18 documented as of this encounter
--- OUTSIDE RECORDS SUMMARY | 2024-11-26 10:22 | XMS_ITS | Clinical Summary ---
Author Organization [facility] Address [address] [place] [address] Care Team Providers Care Direct Support Staff Name Role Phone Joe Barksdale Lilli BETH Primary Care Provider [phone] Allergies Active Allergy Reactions Criticality Noted Date [...] 9 Active mometasone furoate(NASONEX 50 MCG/ACTUATION SPRAY) [place] twice in each nostril once daily. 0 [...] History Medical History Relation Comments Hypertension Brother [place] Brother Diabetes Father Ischemic Heart Disease Father [...] N ot on file 06/07/2022 Data from: [email or web address].[email or web address].medicine.[email or web address].edu/. Last address used for calculation [address] [...] METABOLIC PANEL (10/07/2021 2:42 PM EDT) Pathologist [facility] Protein, Total 7.3 6.3 - 8.0 g/dL 10/07/2021 8:04 PM EDT [facility] Albumin 4.8 3.9 - 4.9 g/dL 10/07/2021 8:04 PM EDT [facility] Calcium, Total 10.3(H) 8.5 - 10.2 mg/dL 10/07/2021 8:04 PM EDT [facility] Bilirubin, Total 0.5 0.2 - 1.3 mg/dL 10/07/2021 8:04 PM EDT [facility] Alkaline Phosphatase 72 34 - 123 U/L 10/07/2021 8:04 PM EDT [facility] AST 17 13 - 35 U/L 10/07/2021 8:04 PM EDT [facility] ALT 24 7 - 38 U/L 10/07/2021 8:04 PM EDT [facility] Glucose 124(H) 74 - 99 mg/dL 10/07/2021 8:04 PM EDT [facility] Comment: The [place] Diabetes Association (ADA) provides guidance for cutoff [...] Standards of Medical Care in Diabetes 2016, [place] Diabetes [employer]. Diabetes Care. 2016.39(Suppl 1). BUN 18 7 - 21 mg/dL 10/07/2021 8:04 PM EDT [facility] Creatinine 0.70 0.58 - 0.96 mg/dL 10/07/2021 8:04 PM EDT [facility] Sodium 139 136 - 144 mmol/L 10/07/2021 8:04 PM EDT [facility] Potassium 4.1 3.7 - 5.1 mmol/L 10/07/2021 8:04 PM EDT [facility] Chloride 100 97 - 105 mmol/L 10/07/2021 8:04 PM EDT [facility] CO2 28 22 - 30 mmol/L 10/07/2021 8:04 PM EDT [facility] Anion Gap 11 9 - 18 mmol/L 10/07/2021 8:04 PM EDT [facility] Estimated Glomerular Filtration Rate 103 >=60 mL/min/1. 73m 10/07/2021 8:04 PM EDT [facility] Comment:Estimated Glomerular Filtration Rate (eGFR) [...] us Neto Ansari MD LABORATORY Final Result [facility] [place] [address], * HEP REMOTE PANEL BL (05/16/2007 2:25 PM EST) Hep B Core Ab, Total Negative NEGAT [facility] Hep C Antibody IA Negative NEGAT [facility] HBsAg Negative NEGAT [facility] Hep B Surface Ab, Qual Negative NEGAT [facility] Comment: A negative Hepatitis B Surface Antibody is indicative of: 1)no prior exposure to HBV, 2)lack of antibody response to an acute or chronic HBV infection, 3)lack of antibody response to HBV vaccination, or, 4)loss of immunity that followed either vaccination or infection. Blood specimen (specimen) BLOOD SPECIMEN / Unknown 05/16/2007 2:25 PM EST Leena Seymour MD LABORATORY Final Result [facility] [address] [place] [address] from Last 3 Months or Most Recently Relevant to Health Maintenance Insurance [employer] Care Teams Direct Support Staff Relationship Specialty Start Date End Date Joe Barksdale DO [address] [place] [address] PCP - General Family Medicine 08/01/18
--- OUTSIDE RECORDS SUMMARY | 2024-11-26 10:22 | XMS_ITS | Encounter Summary ---
Author Organization [facility] Address [address] [place] [address] Care Team Providers Care Skin Piler Name Role Phone Joe Barksdale MD Primary Care Provider [phone] Encounter Details Date Type Department Care Team (Late st Contact Info) Description 10/04/2022 Abstract [facility] [address] [facility] [address] [place] [address] Livia Kirk, [place] [address] [facility] [address] [place], [place] [id number] Social History Tobacco Use Types Packs/Day Years [...] on filedocumented in this encounter Care Teams Skin Piler Relationship Specialty Start Date End Date Joe Barksdale MD [address] [place] [address] [place] [address] PCP - General Family Medicine 10/18/22 documented as of this encounter
--- OUTSIDE RECORDS SUMMARY | 2024-11-26 10:22 | XMS_ITS | Encounter Summary ---
Author Organization [facility] Address [address] [place] [id number] Care Team Providers Care Metal Control Worker Name Role Phone Jose Luis Rodriguez Primary Care Provider [phone] Joe Barksdale DO Primary Care Provider [phone] Source Comments In the event this information is protected by the Federal Confidentiality of Alcohol and Drug AbusePatient Records regulations: The Federal rules restrict any use of the information to criminally investigate or prosecute any alcohol or drug abuse patient.[facility] Encounter Details Date Type Department Care Team (Late st Contact Info) Description 11/13/2016 Patient Msg Functional Medicine [address] [address] [place] [address] [place] [address] Appointment Cancellation Request Social History Tobacco Use [...] on filedocumented in this encounter Care Teams Metal Control Worker Relationship Specialty Start Date End Date Jennifer Jose Luis Saldivar [address] [place] [address] PCP - General 03/16/08 07/31/18 Joe Barksdale DO [address] [place] [address] PCP - General Family Medicine 08/01/18 documented as of this encounter
--- OUTSIDE RECORDS SUMMARY | 2024-11-26 10:22 | XMS_ITS | Clinical Summary ---
Author Organization [facility] Healthcare Address [address] [place] [address] Care Team Providers Care Brew House Supervisor Name Role Phone Joe Barksdale MD Primary Care Provider [phone] Allergies Active Allergy Reactions Criticality Noted Date [...] Hypertension 10/11/2023 Hypothyroidism 10/11/2023 Osteoarthritis 10/11/2023 Other rn long term care (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 Palpitation 10/11/2023 Polyarthralgia 10/11/2023 [...] 09/10/1997 HPV/Cotest 09/10/1997 Mammogram 2007 Influenza Vaccine (#1) 2025 Insurance [employer] Care Teams Brew House Supervisor Relationship Specialty Start Date End Date Joe Barksdale MD [address] [place] [address] PCP - General Family Medicine 10/18/22
--- OUTSIDE RECORDS SUMMARY | 2024-11-26 10:22 | XMS_ITS | Encounter Summary ---
Author Organization [facility] Address [address] [place] [address] Care Team Providers Care Home Health Caregiver Name Role Phone Joe Barksdale MD Primary Care Provider [phone] Encounter Details Date Type Department Care Team (Late st Contact Info) Description 08/14/2022 Abstract [facility] [address] [place] [address] Svetlana Allison, [facility] [address] [place] [address] Social History Tobacco Use Types Packs/Day Years [...] on filedocumented in this encounter Care Teams Home Health Caregiver Relationship Specialty Start Date End Date Joe Barksdale MD [address] [place] [address] PCP - General Family Medicine 10/18/22 documented as of this encounter
--- OUTSIDE RECORDS SUMMARY | 2024-11-26 10:22 | XMS_ITS | Clinical Summary ---
Author Organization [facility] Address [address] [place] [address] Phone Care Team Providers Care Winch Derrick Operator Name Role Phone Joe Barksdale DO Primary Care Provider [phone] Social History Tobacco Use Types Packs/Day Years [...] age to complete this topic Care Teams Winch Derrick Operator Relationship Specialty Start Date End Date Joe Barksdale DO PCP - General 09/27/22
--- OUTSIDE RECORDS SUMMARY | 2024-11-26 10:22 | XMS_ITS | Encounter Summary ---
Author Organization [facility] Address [address] [place] [address] Care Team Providers Care Excel Developer Name Role Phone Joe Barksdale MD Primary Care Provider [phone] Encounter Details Date Type Department Care Team (Late st Contact Info) Description 10/04/2022 Abstract [facility] [address] [facility] [address] [place] [address] Livia Kirk, [place] 112 [facility] [address] [place], [place] [id number] Social History Tobacco Use Types Packs/Day Years [...] on filedocumented in this encounter Care Teams Excel Developer Relationship Specialty Start Date End Date Joe Barksdale MD [address] [place] [address] [place] [address] PCP - General Family Medicine 10/18/22 documented as of this encounter
--- OUTSIDE RECORDS SUMMARY | 2024-11-26 10:22 | XMS_ITS | Encounter Summary ---
Author Organization [facility] Address [address] [place] [address] Care Team Providers Care Finish Off Operator Name Role Phone Joe Barksdale MD Primary Care Provider [phone] Encounter Details Date Type Department Care Team (Late st Contact Info) Description 09/24/2023 Orders Only [facility] [place] [address] [place] [place] [address] Livia Kirk, [place] 112 [facility] 130 [place] [address] Asymmetric SNHL (sensorineural hearing loss); Right-sided tinnitus; [...] right documented in this encounter Care Teams Finish Off Operator Relationship Specialty Start Date End Date Joe Barksdale MD [address] [place] [address] [place] [address] PCP - General Family Medicine 10/18/22 documented as of this encounter
--- OUTSIDE RECORDS SUMMARY | 2024-11-26 10:22 | XMS_ITS | Encounter Summary ---
Author Organization [facility] Address [address] [place] [address] Care Team Providers Care Academic Program Specialist Name Role Phone Jeff Jon MD Primary Care Provider Encounter Details Date Type Department Care Team (Late st Contact Info) Description 09/04/2023 Clinisync Result Encounter [facility] External Department Unsolicited Jennie Guillermo MD [address] [facility] [address] [place] [id number] Social History Tobacco Use Types Packs/Day Years [...] PM EDT Narrative 09/04/2023 4:54 PM EDT [address] [address] [address] Scan Report Signed Patient: CANELO SINGH MR#: [id number] : 1965 Acct:[id number] Age/Sex: 57 / F ADM Date: 09/04/23 Loc: CT Attending Dr: Jennie Guillermo M.D. Ordering Physician: Jennie Guillermo M.D. Date of Service: 09/04/23 Procedure(s): CT int auditory canals w con Accession Number(s): [id number] cc: JEFF JON [place] [address] Patient Name: CANELO SINGH MRN: [id number] date: 1965 Sex: F Assigned Patient Location: CT Current Patient Location: CT Accession/Order Number: [id number] Exam Date: 09/04/2023 13:20 Report Date: 09/04/2023 [...] M.D. Signed By: 09/04/231653 DD/ 51 TD/TT: Microscopist: Procedure Note Radiology, Radiologist, MD - 09/04/2023 [place] [address] CT Scan Report Signed Patient: CANELO SINGH LMR#: [id number] : 1965Acct:[id number] Age/Sex: 57 / FADM Date: 09/04/23 Loc: CT Attending Dr: Jennie Guillermo M.D. Ordering Physician: Jennie Guillermo M.D. Date of Service: 09/04/23 Procedure(s): CT int auditory canals w con Accession Number(s): [id number] cc: JEFF JON [place] [address] Patient Name: CANELO SINGH MRN: [id number] date: 1965 Sex: F Assigned Patient Location: CT Current Patient Location: CT Accession/Order Number: [id number] Exam Date: 09/04/2023 13:20 Report Date: 09/04/2023 [...] VEE M.D. Signed By:09/04/231653 DD/ 51 TD/TT: Microscopist: us Jennie Guillermo MD IMG CT PROCEDURES Final Resul t documented in this encounter Visit Diagnoses Not on filedocumented in this encounter Care Teams Academic Program Specialist Relationship Specialty Start Date End Date Jeff Jon MD [address] [place] [address] [place] [address] PCP - General Family Medicine 10/18/22 documented as of this encounter
--- OUTSIDE RECORDS SUMMARY | 2024-11-26 10:22 | XMS_ITS | Clinical Summary ---
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 [address] [facility] [place] [address] Health Maintenance Due Date Last Done Comments [...] Vaccines (1 of 2) 09/10/2017 COVID-19 Vaccine (3 2023-2 5 season) 2024 09/23/2020, 09/02/2020 Influenza Vaccine [...] complete this topic Insurance [employer] Care Teams Quality Assurance Associate Relationship Specialty Start Date End Date Joe Barksdale DO [address] [place] [address] PCP - General Family Medicine 08/22/24
--- OUTSIDE RECORDS SUMMARY | 2024-11-26 10:22 | XMS_ITS | Encounter Summary ---
Author Organization [facility] Address [address] [place] [address] Care Team Providers Care Gasket Former Name Role Phone Jeff Jon MD Primary Care Provider [phone] Encounter Details Date Type Department Care Team (Late st Contact Info) Description 10/09/2023 Clinisync Result Encounter [facility] External Department Unsolicited Marianela Guillermo MD [address] [facility] 130 [place] [address] Social History Tobacco Use Types Packs/Day Years [...] EDT Narrative 10/09/2023 9:18 PM EDT The [address] [address] Magnetic Resonance Report Signed Patient: CANELO SINGH MR#: [id number] : 1965 Acct:[id number] Age/Sex: 58 / F ADM Date: 10/09/23 Loc: MRI Attending Dr: Marianela Guillermo M.D. Ordering Physician: Marianela Guillermo M.D. Date of Service: 10/09/23 Procedure(s): MR head/brain wo/w con Accession Number(s): [id number] cc: JEFF JON ; Marianela Guillermo M.D. The [address] [address] Patient Name: CANELO SINGH MRN: [id number] date: 1965 Sex: F Assigned Patient Location: MRI Current Patient Location: MRI Accession/Order Number: [id number] Exam Date: 10/09/2023 12:50 Report Date: 10/09/2023 [...] M.D. Signed By: 10/09/232117 DD/ 14 TD/TT: Set Making Machine Operator: Procedure Note Radiology, Radiologist, MD - 10/09/2023 [place] [address] Magnetic Resonance Report Signed Patient: CANELO SINGH LMR#: [id number] : 1965Acct:[id number] Age/Sex: 58 / FADM Date: 10/09/23 Loc: MRI Attending Dr: Marianela Guillermo M.D. Ordering Physician: Marianela Guillermo M.D. Date of Service: 10/09/23 Procedure(s): MR head/brain wo/w con Accession Number(s): [id number] cc: JEFF JON ; Marianela Guillermo M.D. The [place] [id number] Patient Name: CANELO SINGH MRN: [id number] date: 1965 Sex: F Assigned Patient Location: MRI Current Patient Location: MRI Accession/Order Number: [id number] Exam Date: 10/09/2023 12:50 Report Date: 10/09/2023 [...] Patel M.D. Signed By:10/09/232117 DD/ 14 TD/TT: Set Making Machine Operator: us Marianela Guillermo MD IMG XR PROCEDURES Final Resul t documented in this encounter Visit Diagnoses Not on filedocumented in this encounter Care Teams Gasket Former Relationship Specialty Start Date End Date Jeff Jon MD [address] [place] [address] [address] [place] [id number] PCP - General Family Medicine 10/18/22 documented as of this encounter
--- OUTSIDE RECORDS SUMMARY | 2024-11-26 10:22 | XMS_ITS | Encounter Summary ---
Author Organization [facility] Address [address] [place] [address] Care Team Providers Care Crutch Maker Name Role Phone Jose Luis Rodriguez Primary Care Provider [phone] Joe Barksdale DO Primary Care Provider [phone] Source Comments In the event this information is protected by the Federal Confidentiality of Alcohol and Drug AbusePatient Records regulations: The Federal rules restrict any use of the information to criminally investigate or prosecute any alcohol or drug abuse patient.[facility] Encounter Details Date Type Department Care Team (Late st Contact Info) Description 08/02/2016 Patient Msg Medical Records [address] [place] [address] Provider, [facility] Important notice: provider change for [...] on filedocumented in this encounter Care Teams Crutch Maker Relationship Specialty Start Date End Date Jose Luis Rodriguez [address] [place] [address] PCP - General 03/16/08 07/31/18 Joe Barksdale DO [address] [place] [address] PCP - General Family Medicine 08/01/18 documented as of this encounter
--- OUTSIDE RECORDS SUMMARY | 2024-11-26 10:22 | XMS_ITS | Encounter Summary ---
Author Organization [facility] Address [address] [place] [address] Care Team Providers Care Mergers And Acquisitions Associate Name Role Phone Joe Barksdale MD Primary Care Provider [phone] Encounter Details Date Type Department Care Team (Late st Contact Info) Description 10/04/2022 Abstract [facility] [address] [facility] [address] [place] [address] Livia Kirk, [place] 112 [facility] [address] [place], [place] [address] Social History Tobacco Use Types Packs/Day Years [...] on filedocumented in this encounter Care Teams Mergers And Acquisitions Associate Relationship Specialty Start Date End Date Joe Barksdale MD [address] [place] [address] [place] [address] PCP - General Family Medicine 10/18/22 documented as of this encounter
[2024-11-26 10:43] LABS: Glucose Urine UA NEGATIVE (NEGATIVE)
[2024-11-26 10:47] LABS: Hematocrit 40.2 % (36.0-48.0); Hemoglobin 13.4 g/dL (12.0-16.0); Immature Granulocytes Abs Auto 0.04 10^3/uL (0.00-0.03); Immature Granulocytes Pct Auto 0.6 % (0.0-0.5); Lymphocytes Absolute Auto 1.9 10^3/uL (1.2-3.8); Mean Corpuscular HGB Conc 33.3 g/dL (29.9-35.2); Mean Corpuscular Hemoglobin 31.0 pg (26.7-34.0); Mean Corpuscular Volume 93.1 fL (81.0-99.0); Platelet Count 306 10^3/uL (150-450); Red Blood Count 4.32 10^6/uL (4.20-5.40); White Blood Count 7.2 10^3/uL (4.0-11.0)
== END 2024-11-26 10:19 | disposition home or self-care (01) ==
LOC: LAB 10:20
PROVIDERS: PCP Family Medicine; Visit Provider Family Medicine
DX: Z79.899 Other long term (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 (principal); E11.9 Type 2 diabetes mellitus without complications; R35.1 Nocturia
CPT/HCPCS: 36415; 81003; 83036; 85025; 87086

== ENCOUNTER 2024-12-22 09:40 | Outpatient (OUT) | payer OTHER, SELFPAY ==
--- OUTSIDE RECORDS SUMMARY | 2024-12-08 06:18 | XMS_ITS | Continuity of Care Document ---
Author Organization [facility] Address [address] [place] [address] Phone Care Team Providers Care Corporate Safety Coordinator Name Role Phone Joe Barksdale DO Primary Care Provider [phone] Joe Barksdale DO Attending Provider [phone] Lorena Rico APRN Attending Provider Care Teams Patient Care Team Team Status: Active Member Role Status Zach Barksdale DO Primary Care Provider Active Visit Care Team Team Status: Inactive Member Role Status Zach Barksdale DO Primary Care Provider Active S tart: October 24, 2024 End: October 24, 2024 Joe Barksdale DO Attending Provider Active Star t: October 24, 2024 End: October 24, 2024 Visit Care Team Team Status: Active Member Role Status Zach Barksdale DO Primary Care Provider Active S tart: November 20, 2024 Joe Barksdale DO Attending Provider Active Star t: November 20, 2024 Visit Care Team Team Status: Active Member Role Status Zach Barksdale DO Primary Care Provider Active S tart: November 26, 2024 Joe Barksdale DO Attending Provider Active Star t: November 26, 2024 Visit Care Team Team Status: Inactive Member Role Status Zach Barksdale DO Primary Care Provider Active S tart: November 27, 2024 End: November 27, 2024 Joe Barksdale DO Attending Provider Active Star t: November 27, 2024 End: November 27, 2024 Patient Care Team Team Status: Inactive Member Role Status Dates Joe Barksdale DO Primary Care Provider Active S tart: December 08, 2024 End: December 08, 2024 Lorena Rico APRN [facility]- Attending Provider Active Start: December 08, 2024 End: December 08, 2024 Chief Complaint and Reason for Visit Chief Complaint Admit Date telephone/cough/green phlegm October 24 10:11am review labs November 27, 2024 11:3 5am H mo f/u Asthma December 08, 2024 9:32 am Reason for Visit Admit Date Acute cough October 24, 2024 10:11 am Acute sinusitis October 24, 2024 10:11 am Diabetes November 27, 2024 11:3 5am Hyperlipidemia November 27, 2024 11:3 5am Hypertension November 27, 2024 11:3 5am Hypothyroidism November 27, 2024 11:3 5am Palpitation November 27, 2024 11:3 5am Polyarthralgia November 27, 2024 11:3 5am Vitamin D deficiency November 27, 2024 11: 35am Abnormal CT scan, chest December 08, 2024 9:32am Asthma December 08, 2024 9:32 am GERD (gastroesophageal reflux disease) J trista 2024 9:32am Seasonal allergies December 08, 2024 9:32 am Allergies, Adverse Reactions, Alerts Allergen Type Severity Reaction Last Updated Verified Status clarithromycin Allergy Unknown diarrhea December 08, 2024 9:35am Yes Active levofloxacin Allergy Unknown Abdominal Pain, itches/pain December 08, 2024 9:35am Yes Active gatifloxacin Allergy Unknown Abdominal Pain November 9:35am Yes Active Social History Smoking Status Status [...] Unknown Active Acute cough Unknown Active 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 2023 9:14a m TAKE 1 TABLET AT BEDTIME Amoxicillin -Pot Clavulanate 875-125 mg tablet Discont inued 1 TAB PO Twice daily 09 03January 08, 2024 12:00a m [facility] 2023 12:37 pm with food Meloxicam 15 mg tablet Discont inued 0 .ROUTE .COMPLEX 90 January 14, 2024 10:16a m Janua ry 2024 1:23p m TAKE 1 TABLET DAILY Metformin 500 mg tablet extended release 24 hr Discont inued 500 MG PO .[facility] January 14, 2024 10:36a m Augus t 2023 10:42 am 500 mg orally take 2 (500 mg) tabs twice a day with meals; Metformin 500 mg tablet extended release 24 hr Discont inued 0 .ROUTE .COMPLEX 360 January 14, 2024 10:41a m [facility] 2023 9:14a m TAKE 2 TABLETS TWICE A DAY WITH MEALS Metformin 500 mg tablet extended release 24 hr Discont inued 0 .ROUTE .COMPLEX 360 [facility] 2023 9:13am [place] 2024 1:23p m TAKE 2 TABLETS TWICE A DAY WITH MEALS Losartan 50 mg tablet Discont inued 50 MG PO Daily [facility] 2023 9:14am September 08, 2024 10:07 am Levothyroxi ne 200 mcg tablet Discont inued 200 MCG PO Daily [facility] 2023 9:14am August 18, 2024 10:58 am take first thing in the morning on an empty stomach, do not eat or drink for 30-45 min after taking Cyclobenzap rine 10 mg tablet Discont inued 10 MG PO Daily at bedtime [facility] 2023 9:14am August 18, 2024 11:47 am TAKE 1 TABLET AT BEDTIME Montelukast (Singulair) 10 mg tablet Active 10 MG PO Daily at bedtime [facility] 2023 9:15am Complies with drug therapy Esomeprazol e Magnesium (Nexium) 40 mg capsule,del ayed release(DR/ EC) Active 40 MG PO Daily [facility] 2023 9:16am Complies with drug therapy Prednisone 20 mg tablet Discont inued 0 PO daily 18 Decemb er 2023 1:00am Alexandr ry 2024 1:16p m 3 tablets by mouth daily for 3 days, then 2 tablets for 3 days, then 1 tablet for 3 days, with food Levothyroxi ne 100 mcg tablet Discont inued 200 MCG PO Daily August 18, 2024 12:00a m November 27, 2024 12:21 pm take first thing in the morning on an empty stomach, do not eat or drink for 30-45 min after taking Levothyroxi ne (Synthroid) 25 mcg tablet Discont [...] Daily September 14, 2017 12:00a m Decem slim 2023 9:16a m Mometasone (Nasonex) 50 mcg/actuati on Lamont,Non-A erosol Discont inued 2 SPRAY INTRAN CLARISSE Daily September 14, 2017 12:00a m Febru bill 2024 11:36 am Montelukast (Singulair) 10 [...] Daily as needed for allergic symptoms Februa ry 2024 11:35a m Complies with drug therapy [...] er 2023 1:03pm Complies with drug therapy Empaglifloz in (Jardiance) 10 mg tablet Active 10 MG PO Every morning November 27, 2024 12:00a m Complies with drug therapy Losartan 50 mg tablet Active 50 MG PO Daily November 27, 2024 12:14p m Complies with drug therapy Levothyroxi ne 200 mcg tablet Active 200 MCG PO Daily November 27, 2024 12:00a m take first thing in the morning on an empty stomach, do not eat or drink for 45 min after taking Complies with drug therapy Meloxicam 15 mg [...] INHALA TION August 28, 2023 12:00a m Novem 2023 1:03p m FreeTextSi inhalations Inhalation q4 [...] daily August 28, 2023 12:00a m Febru bill2024 11:36 am FreeText[employer] application Externally Twice a [...] 24 hr Active 1000 MG PO .COMPLEX r 2024 1:22pm 1,000 mg orally BID as normal; Complies with drug therapy Prednisone 20 mg tablet Discont inued 0 PO .with food or milk 18 9 2024 1:00am Febru bill 2024 11:36 am take 3 tablets a day x3 days, 2 tabs a day x3 days and then 1 tab a day x3 days orally WITH FOOD OR MILK; Diltiazem Hcl 240 mg capsule,ext ended release 24hr Discont inued MG PO September 01, 2024 12:00a m September 08, 2024 10:07 am Atorvastati n 20 mg tablet Discont inued 20 MG PO Daily September 01, 2024 12:00a m November 27, 2024 11:42 am Aspirin 81 mg tablet,chew able Discont inued 1 TAB PO Daily September 01, 2024 12:00a m November 27, 2024 11:42 am Prednisone 20 mg tablet Discont inued 0 PO .with food or milk 18 September 01, 2024 12:00a m September 23, 2024 10:19 am take 3 tablets a day x3 days, 2 tabs a day x3 days and then 1 tab a day x3 days orally WITH FOOD OR MILK; Diltiazem Hcl 240 mg capsule,ext ended release 24hr Discont inued 240 MG PO Daily September 08, 2024 10:07a m November 27, 2024 11:43 am Prednisone 20 mg tablet Discont inued 0 PO .COMPLEX 20 October 24, 2024 12:00a m November 27, 2024 11:44 am 3 tabs a day x3 days then take 2 tabs a day x3 days then take 1 tab a day x3 then take 1/2 tablet a day x4 days with food or milk orally; Amoxicillin -Pot Clavulanate 875-125 mg tablet Discont inued 1 TAB PO Twice daily 09 03October 24, 2024 12:00a m November 27, 2024 11:42 am with food Immunizations Immunization Event Date Not Given Reason Dose Number Curing Oven Tender Lot Number Vaccine Information Statement (VIS) Detail Administration Location COVID-19 mRNAGermán (ClaimReturn) September 02, 2020 [id number] [facility] COVID-19 mRNAGermán (ClaimReturn) September 23, 2020 [id number] [facility] Tetanus, Diphtheria, Pertussis (Tdap) December 16, 2011 Trivalent Influenza Vaccine March 15, 2021 Patient Refused Relevant Diagnostic Tests and/or Laboratory Data Laboratory Results Test Collection Date/Time Result Date/Time Result Interpretation Reference Range Result Comment Performing Site Anti-Nuc lear Antibody Screen November 20, 2024 11:13am November 20, 2024 11:13am Negative . Negative <1:80 Borderline 1:80 Positive >1:80ICAP nomenclatur e: AC-0For more information about Hep-2 cell patterns useANApatte rns.org, the official website for the[facility] Centeral Consensus on Antinuclear Antibody (KATHY)Jena arana (ICAP).Perf ormed at: [facility] [id number] [place], [place] [id number] Director: Giuseppe Newell PhD, Phone: [phone] Scl-70 (Sclerod demian) Antibody November 20, 2024 11:13am <0.2 AI 0.0-0.9 Performed at: [facility] [place], [place] [id number] Director: Giuseppe Newell PhD, Phone: [phone] Rheumato id Factor November 20, 2024 11:13am <10.0 [IU]/mL <14.0 Performed at: [facility] [id number] [place], [place] [id number] Director: Giuseppe Newell PhD, Phone: [phone] Erythroc yte Sediment ation Rate November 20, 2024 11:13am November 20, 2024 11:13am 15 mm/hr <=30 C-Reacti ve Protein, Quantita tive November 20, 2024 11:13am November 20, 2024 11:13am <0.50 mg/dL <=0.50 Free Thyroxin e November 20, 2024 11:13am November 20, 2024 11:13am 1.68 ng/dL Above high normal 0.76-1.46 25-[place] xy Vitamin D Total November 20, 2024 11:13am 34.8 ng/mL <20 ng/mL Vit D -<30 ng/mL Vit D insufficien t30-100 ng/mL Vit D sufficient> 100 ng/mL Potential Toxicity Total Creatine Kinase November 20, 2024 11:13am November 20, 2024 11:13am 29 U/L 26-192 Direct Bilirubi n November 20, 2024 11:13am November 20, 2024 11:13am 0.1 mg/dL 0.0-0.2 Thyroid Stimulat ing Hormone 3rd Gen November 20, 2024 11:13am November 20, 2024 11:13am 0.712 u[iU]/mL 0.358-3.74 0 Free Triiodot hyronine November 20, 2024 11:13am November 20, 2024 11:13am 3.27 pg/mL 2.18-3.98 Choleste rol/HDL Ratio November 20, 2024 11:13am November 20, 2024 11:13am 2.5 3.3 - 4.4 LOW RISK4.4 - 7.1 AVERAGE RISK7.1 - 11.0 MODERATE RISK>11.0 HIGH RISK Anion Gap November 20, 2024 11:13am November 20, 2024 11:13am 14.3 Urine Bilirubi n November 26, 2024 9:55am November 26, 2024 9:55am NEGATIVE NEGATIVE Estimate d Average Glucose November 26, 2024 10:40am November 26, 2024 10:40am 186 mg/dL Basophil s # (Auto) November 26, 2024 10:40am November 26, 2024 10:40am 0.1 10 3/uL 0.0-0.1 Choleste rol Level November 20, 2024 11:13am November 20, 2024 11:13am 207 mg/dL Above high normal <=200 Albumin/ Globulin Ratio November 20, 2024 11:13am November 20, 2024 11:13am 1.0 Urine Occult Blood November 26, 2024 9:55am November 26, 2024 9:55am NEGATIVE NEGATIVE Hemoglob in A1c November 26, 2024 10:40am November 26, 2024 10:40am 8.1 % Above high normal 4.5-6.2 ADA RECOMMENDED LIMIT 4.0 - 6.0ADA THERAPEUTIC TARGET < 7.0ACTION SUGGESTED> 7.0 Basophil s (%) (Auto) November 26, 2024 10:40am November 26, 2024 10:40am 0.7 % 0.2-2.0 HDL Choleste rol November 20, 2024 11:13am November 20, 2024 11:13am 82 mg/dL Above high normal 40-60 > or =60 mg/dl - LOW CARDIOVASCU LAR RISK<40 mg/dl - HIGH CARDIOVASCU LAR RISK Albumin November 20, 2024 11:13am November 20, 2024 11:13am 3.4 g/dL 3.4-5.0 Urine Appearan ce November 26, 2024 9:55am November 26, 2024 9:55am CLEAR CLEAR Eosinoph ils # (Auto) November 26, 2024 10:40am November 26, 2024 10:40am 0.3 10 3/uL 0.0-0.7 LDL Choleste rol, Calculat ed November 20, 2024 11:13am November 20, 2024 11:13am 107.0 mg/dL <100 mg/dl [id number]- 129 mg/dl NEAR OR ABOVE INCRLHW706- 159 mg/dl BORDERLINE [id number] mg/dl HIGH>190 mg/dl VERY HIGH Alkaline Phosphat ase November 20, 2024 11:13am November 20, 2024 11:13am 82 U/L 46-116 Urine Color November 26, 2024 9:55am November 26, 2024 9:55am LT. YELLOW YELLOW Eosinoph ils (%) (Auto) November 26, 2024 10:40am November 26, 2024 10:40am 4.6 % 0.9-7.0 Triglyce rides Level November 20, 2024 11:13am November 20, 2024 11:13am 91 mg/dL <=150 Alanine Aminotra nsferase (ALT/SGP T) November 20, 2024 11:13am November 20, 2024 11:13am 33 U/L 14-59 Urine Glucose (UA) November 26, 2024 9:55am November 26, 2024 9:55am NEGATIVE mg/dL NEGATIVE Hematocr it November 26, 2024 10:40am November 26, 2024 10:40am 40.2 % 36.0-48.0 VLDL Choleste rol November 20, 2024 11:13am November 20, 2024 11:13am 18.2 mg/dL Aspartat e Amino Transf (AST/SGO T) November 20, 2024 11:13am November 20, 2024 11:13am 20 U/L 15-37 Urine Ketones November 26, 2024 9:55am November 26, 2024 9:55am NEGATIVE mg/dL NEGATIVE Hemoglob in November 26, 2024 10:40am November 26, 2024 10:40am 13.4 g/dL 12.0-16.0 BUN/Crea tinine Ratio November 20, 2024 11:13am November 20, 2024 11:13am 22.1 Urine Leukocyt e Esterase November 26, 2024 9:55am November 26, 2024 9:55am NEGATIVE NEGATIVE Immature Granuloc yte # (Auto) November 26, 2024 10:40am November 26, 2024 10:40am 0.04 10 3/uL Above high normal 0.00-0.03 Blood Urea Nitrogen November 20, 2024 11:13am November 20, 2024 11:13am 15.0 mg/dL 7.0-18.0 Urine Nitrite November 26, 2024 9:55am November 26, 2024 9:55am NEGATIVE NEGATIVE Immature Granuloc yte % (Auto) November 26, 2024 10:40am November 26, 2024 10:40am 0.6 % Above high normal 0.0-0.5 Calcium Level November 20, 2024 11:13am November 20, 2024 11:13am 9.3 mg/dL 8.5-10.1 Urine pH November 26, 2024 9:55am November 26, 2024 9:55am 6.0 5.0-9.0 Lymphocy oren # (Auto) November 26, 2024 10:40am November 26, 2024 10:40am 1.9 10 3/uL 1.2-3.8 Chloride Level November 20, 2024 11:13am November 20, 2024 11:13am 104 mmol/L 98-107 Urine Protein November 26, 2024 9:55am November 26, 2024 9:55am NEGATIVE mg/dL NEG/TRACE Lymphocy oren (%) (Auto) November 26, 2024 10:40am November 26, 2024 10:40am 25.8 % 20.5-60.0 Carbon Dioxide Level November 20, 2024 11:13am November 20, 2024 11:13am 27.2 mmol/L 21.0-32.0 Urine Specific [place] November 26, 2024 9:55am November 26, 2024 9:55am >=1.030 Abnormal (applies to non-numeric results) 1.005-1.02 5 Mean Corpuscu lar Hemoglob in November 26, 2024 10:40am November 26, 2024 10:40am 31.0 pg 26.7-34.0 Creatini ne November 20, 2024 11:13am November 20, 2024 11:13am 0.68 mg/dL 0.55-1.02 Urine Urobilin ogen November 26, 2024 9:55am November 26, 2024 9:55am 0.2 EU/dL 0.2-1.0 Mean Corpuscu lar Hemoglob in Concent November 26, 2024 10:40am November 26, 2024 10:40am 33.3 g/dL 29.9-35.2 Estimate d GFR ( ) November 20, 2024 11:13am November 20, 2024 11:13am >60 >=60 mL/min/1.7 3m 2 Mean Corpuscu lar Volume November 26, 2024 10:40am November 26, 2024 10:40am 93.1 fL 81.0-99.0 Estimate d GFR (Non-Afr ican Irish November 20, 2024 11:13am November 20, 2024 11:13am >60 >=60 mL/min/1.7 3m 2 Monocyte s # (Auto) November 26, 2024 10:40am November 26, 2024 10:40am 0.6 10 3/uL 0.3-0.8 Globulin November 20, 2024 11:13am November 20, 2024 11:13am 3.3 g/dL Monocyte s (%) (Auto) November 26, 2024 10:40am November 26, 2024 10:40am 7.7 % 1.7-12.0 Glucose Level November 20, 2024 11:13am November 20, 2024 11:13am 163 mg/dL Above high normal 74-106 Mean Platelet Volume November 26, 2024 10:40am November 26, 2024 10:40am 9.6 fL 9.5-13.5 Potassiu m Level November 20, 2024 11:13am November 20, 2024 11:13am 4.5 mmol/L 3.5-5.1 Neutroph ils # (Auto) November 26, 2024 10:40am November 26, 2024 10:40am 4.4 10 3/uL 1.4-6.5 Sodium Level November 20, 2024 11:13am November 20, 2024 11:13am 141 mmol/L 136-145 Neutroph ils (%) (Auto) November 26, 2024 10:40am November 26, 2024 10:40am 60.6 % 43.0-75.0 Total Bilirubi n November 20, 2024 11:13am November 20, 2024 11:13am 0.4 mg/dL 0.2-1.0 Platelet Count November 26, 2024 10:40am November 26, 2024 10:40am 306 10 3/uL 150-450 Total Protein November 20, 2024 11:13am November 20, 2024 11:13am 6.7 g/dL 6.4-8.2 Red Blood Count November 26, 2024 10:40am November 26, 2024 10:40am 4.32 10 6/uL 4.20-5.40 Red Cell Distribu tion Width November 26, 2024 10:40am November 26, 2024 10:40am 12.0 % 11.0-15.0 Correcte d White Blood Count November 26, 2024 10:40am November 26, 2024 10:40am 7.2 10 3/uL 4.0-11.0 Vital Signs Vital Reading Result Reference Range Collection Date/Time Height 65 [in_i] November 27, 2024 11:36am Weight 126.55 kg November 27, 2024 11:36am Body Temperature 97.9 [degF] 97.6-99.0 November 27, 2024 11:36am Heart Rate 90 /min 60-100 November 27, 2024 11:36am Oxygen saturation by Pulse oximetry 95 % 95-100 November 27, 2024 11:3 6am BP Systolic 154 mm[Hg] 100-140 November 27, 2024 11:36am BP Diastolic 92 mm[Hg] 60-100 November 27, 2024 11:36am BMI (Body Mass Index) 46.4 kg/m2 November 182024 11:36am Height 65 [in_i] December 08, 2024 9:37am Weight 127.45 kg December 08, 2024 9:37am Heart Rate 85 /min 60-100 December 08, 2024 9:37am Respiratory rate 20 /min 12-December 08, 2024 9:37am Oxygen saturation by Pulse oximetry 96 % 95-100 December 08, 2024 9:37 am BP Systolic 154 mm[Hg] 100-140 December 08, 2024 9:40am BP Diastolic 95 mm[Hg] 60-100 December 08, 2024 9:40am BMI (Body Mass Index) 46.7 kg/m2 November 192024 9:37am Advance Directives Advance Directive Response Recorded Date/ Time Advance Directives No September 14, 018 9:20pm Insurance Providers Guarantor Laura Pathak Address [address] [place] [address] Contact Info. Home Phone: Payer Policy Id Subscriber's Name Subscriber Id Effectiv e Date Expiration Date John GUTIÉRREZ [id number] Bobby Noble [id number] [facility] [employer] [id number] Bobby Noble [id number] Encounters Encounter Location(s) Arrival/Admit Date Discharge/Depart Date Provider(s) Departed Physician/Prov ider Office Visit -[facility] October 24, 2024 10:11am October 24, 2024 10:30am Joe Barksdale DO Non-patient / Non-visit -[facility] November 20, 2024 11:13am Joe Barksdale DO Non-patient / Non-visit -[facility] November 26, 2024 9:55am Joe Barksdale DO Departed Physician/Prov ider Office Visit -[facility] November 27, 2024 11:35am November 27, 2024 12:23pm Joe Barksdale DO Departed Physician/Prov ider Office Visit -[facility] December 08, 2024 9:32am December 08, 2024 10:17am Oscar Vicente APRN [facility] Recent Diagnosis Onset Date Admit Date Acute cough Unknown October 24, 2024 1 0:11am Acute sinusitis Unknown October 24, 2024 1 0:11am Diabetes Unknown November 27, 2024 11:35am Hyperlipidemia Unknown November 27, 2024 11:35am Hypertension Unknown November 27, 2024 11:35am Hypothyroidism Unknown November 27, 2024 11:35am Palpitation Unknown November 27, 2024 11:35am Polyarthralgia Unknown November 27, 2024 11:35am Vitamin D deficiency Unknown November 27, 2024 11:35am Abnormal CT scan, chest Unknown November 9:32am Asthma Unknown December 08, 2024 9:32am GERD (gastroesophageal reflux disease) Unknown December 08, 2024 9:32am Seasonal allergies Unknown December 08 9:32am Assessments Author [facility] Authored November 27, 2024 12:3 4pm The above note written by __ _Gail Saul____ acting as human recorder, note dictated by Dr. Jones .I performed the above HPI, ROS, and Examination. I formulated and dictated the treatment plan and was present for entire encounter. Joe Barksdale D.O. Author Joe Barksdale [facility] Authored October 24, 2024 10:35 am The above note written by __ _Gail Saul____ acting as human recorder, note dictated by Dr. Jones .I performed the above HPI, ROS, and Examination. I formulated and dictated the treatment plan and was present for entire encounter. Joe Barksdale D.O. Plan of Treatment Author Lorena Rico [facility] Authored December 05, 2024 9:[address] of the chest approximatel y a month ago completed at the [facility] showed right upper lobe emphysematous bulla and scattered bilateral groundglass opacities to both lung arvizu.Results and images of chest x-rays and chest CTA completed at the [facility] in July 2024 were reviewed with patient. I discussed that findings may be a viral component and will gradually resolve as she notes her symptoms are resolving with use of prednisone. Other differential diagnosis would include underlying autoimmune disease. This was discussed with patient and patient is in agreement to obtain blood work for autoimmune workup. I instructed patient to have this done next week as she will be off prednisone. Patient request blood work to be done at the [facility]. Discussed alpha ID cheek swab for screening of alpha 1 antitrypsin deficiency. Patient was in agreement to testing. Cheek swab completed during this office visit. I do not feel need for follow-up chest CT at this time. Patient will be going on vacation to [facility] mid September. Patient will either contact PCP or myself for prednisone taper to take with her in case she needs it. Author Gail Saul [facility] Authored November 27, 2024 12:2 4pm She is not taking blood pres sure medication. Her blood pressure today is not controlled today but she is emotional in the office because she lost a kitten prior to her appointment today. She found that when she stopped her medication her blood pressure improved. She developed headaches with the medicine and did not like that. She voices that her home blood pressure readings were in the 130's over 90's. She was on Losartan and then was given a different blood pressure medication by the molding line assistant. I did recommend that she restart the Losartan because it protects her kidneys and is a mellow medication, I also feel that her diastolic reading needs to be lower. She is in agreement to restarting Losartan 50 MG and admits she did not have any side effects from that medicine. Her Vitamin D is 34.8. She had only been taking one Vitamin D supplement daily and I did recommend she double up on her dose. She did not get the stress test done because she had to be off Prednisone for two weeks and she has been on/off this since July (2024). She voices that she is not taking the statin medication. She did start the Atorvastatin and was on it for 7-10 days before stopping it. Her total cholesterol is 207. HDL is 82. LDL is 107. Triglycerides are 91. VLDL is 18.2. She is to continue with her recent dietary changes and increase her intake of protein, dark green vegetables and avoid the sugars, carbs and pastas in her diet. She suspects her blood sugar is elevated because of continued Prednisone use. She also does not feel well so she is not eating well. She has done better over this past week about eating more proteins and vegetables. Her glucose is 163. HgA1C is 8.1 which is higher than I would like to see. She saw a specialist in [place] who increased her Metformin dose to 2 in the AM and 2 in the PM but she did not feel well so she only stayed at 2 tablets once a day. I am not convinced that doubling her Metformin dose will help improve her readings. We discussed Jardiance today. Side effects/risks/benefits of medication were reviewed. Jardiance will help to lower blood sugar and help protect the heart. She is willing to try the Jardiance to see if this helps improve her A1C. I will start her on a low dose and explained that we can increase her dose if needed. If she develops unexplained yeast infections she should let myself or her BACKUP ADMINISTRATOR know. I will order lab to be done again in three months and see her back after that. Discussed thyroid results with patient today. TSH is 0.712. Free T3 is 3.27. Free T4 is 1.68. I want her to stay on the Levothyroxine 200 MCG daily. She takes 2 of the 100 MCG daily. All of the rheumatoid lab that she had done was negative. She has not taken Meloxicam in months because of the Prednisone she is off/on. She has an appointment with Lorena Rico next week, she states that the only time her breathing is good is when she is on Prednisone. She wants to be sure her breathing is good before she schedules the stress test. I did recommend she have a mammogram done, she voices that she will get this done through her BACKUP ADMINISTRATOR in [place]. Author Gail Saul [facility] Authored October 24, 2024 10:29 am She voices that she flew [place] on 10/12/24 and due to delays she was in the airport for eight hours. She had to change flights two times. She was also exposed to her aunt who had pneumonia. She feels she has developed bronchitis because of all the things she has been exposed to. I will treat her with Augmentin and a Prednisone taper. She is agreeable. Explained to her that the Augmentin will cover her sinuses as well. Gave guidance on how to take the Prednisone taper. Do not take Motrin, Advil, Ibuprofen or Aleve or Meloxicam while on Prednisone. She is to rest, push fluids. She voices that she will wait a couple of weeks before she restarts the Meloxicam after taking the Prednisone. She will follow up with Lorena Rico as scheduled in November (2024). Will treat with Augmentin. Her daughter is having a baby and she was told that she should have a TDap shot before the baby comes. She can have this shot as long as she does not have a fever and can obtain this at any local pharmacy or health department. Future Tests Future scheduled test information is unavailable Pending Tests Test Name Ordered Date Scheduled Date Comprehensive Metabolic Panel November 27, 2024 12 :07pm 6 Months Comprehensive Metabolic Panel November 27, 2024 12 :18pm 3 Months Insulin November 27, 2024 12:18pm 3 Months Future Visits Future appointment information is unavailable Referrals to Other Providers Referral information is unavailable Future Procedures Procedure Name Ordered Date Scheduled Date A1C with Estimated Average Glu November 27, 2024 1 2:07pm 6 Months Complete Blood Count Auto Diff November 27, 2024 1 2:07pm 6 Months Complete Blood Count Auto Diff November 27, 2024 1 2:18pm 3 Months Lipid Panel November 27, 2024 12:07pm 6 Months MicroAlb Creat Ratio,U November 27, 2024 12:18pm 3 Months Triiodothyronine (T3) Free November 27, 2024 12:07 pm 6 Months Free T4 (Free Thyroxine) November 27, 2024 12:07pm 6 Months Thyroid Stimulating Hormone November 27, 2024 12:0 7pm 6 Months Vitamin D 25 Hydroxy Total November 27, 2024 12:07 pm 6 Months Future Medications Future medication information is unavailable Patient Instructions Patient instructions are unavailable
--- OUTSIDE RECORDS SUMMARY | 2024-12-08 10:17 | XMS_ITS | Continuity of Care Document ---
Author Organization [facility] Address [address] [place] [address] Phone Care Team Providers Care Dentist Name Role Phone Joe Barksdale DO Primary Care Provider [phone] Joe Barksdale DO Attending Provider [phone] Care Teams Patient Care Team Team Status: Active Member Role Status Dates Joe Barksdale DO Primary Care Provider Active Visit Care Team Team Status: Inactive Member Role Status Dates Joe Barksdale DO Primary Care Provider Active S tart: November 27, 2024 End: November 27, 2024 Joe Barksdale DO Attending Provider Active Star t: November 27, 2024 End: November 27, 2024 Chief Complaint and Reason for Visit Chief Complaint Admit Date review labs November 27, 2024 11:3 5am Reason for Visit Admit Date Diabetes November 27, 2024 11:3 5am Hyperlipidemia November 27, 2024 11:3 5am Hypertension November 27, 2024 11:3 5am Hypothyroidism November 27, 2024 11:3 5am Palpitation November 27, 2024 11:3 5am Polyarthralgia November 27, 2024 11:3 5am Vitamin D deficiency November 27, 2024 11: 35am Allergies, Adverse Reactions, Alerts Allergen Type Severity [...] Unknown Active Acute cough Unknown Active 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 Unknown Active Lumbar [...] Active CT c hest 08/05/24 done at [facility] Asymmetrical sensorineural h earing loss Unknown [...] Daily September 03, 2023 12:00a m Decem 2023 9:14a m take first thing in [...] at bedtime December 14, 2023 10:30a m Aug[facility] 2023 11:30 am TAKE 1 TABLET AT BEDTIME Cyclobenzap rine 10 mg tablet Discont inued 10 MG PO Daily at bedtime January 08, 2024 11:29a m [facility] 2023 9:14a m TAKE 1 TABLET AT BEDTIME Amoxicillin -Pot Clavulanate 875-125 mg tablet Discont inued 1 TAB PO Twice daily 09 03January 08, 2024 12:00a m [facility] 2023 12:37 pm with food Meloxicam 15 mg tablet Discont inued 0 .ROUTE .[facility] 90 January 14, 2024 10:16a m 2024 1:23p m TAKE 1 TABLET DAILY Metformin 500 mg tablet extended release 24 hr Discont inued 500 MG PO .[facility] January 14, 2024 10:36a m Augus t 2023 10:42 am 500 mg orally take 2 (500 mg) tabs twice a day with meals; Metformin 500 mg tablet extended release 24 hr Discont inued 0 .ROUTE .[facility]X 360 January 14, 2024 10:41a m [facility] 2023 9:14a m TAKE 2 TABLETS TWICE A DAY WITH MEALS Metformin 500 mg tablet extended release 24 hr Discont inued 0 .ROUTE .COMPLEX 360 [facility] 2023 9:13am 2024 1:23p m TAKE 2 TABLETS TWICE A DAY WITH MEALS Losartan 50 mg tablet Discont inued 50 MG PO Daily [facility] 2023 9:14am September 08, 2024 10:07 am Levothyroxi ne 200 mcg tablet Discont inued 200 MCG PO Daily [facility] 2023 9:14am August 18, 2024 10:58 am take first thing in the morning on an empty stomach, do not eat or drink for 30-45 min after taking Cyclobenzap rine 10 mg tablet Discont inued 10 MG PO Daily at bedtime 90 [facility] 2023 9:14am August 18, 2024 11:47 am TAKE 1 TABLET AT BEDTIME Montelukast (Singulair) 10 mg tablet Active 10 MG PO Daily at bedtime 90 [facility] 2023 9:15am Complies with drug therapy Esomeprazol e Magnesium (Nexium) 40 mg capsule,del ayed release(DR/ EC) Active 40 MG PO Daily [facility] 2023 9:16am Complies with drug therapy Prednisone 20 mg tablet Discont inued 0 PO daily 18 [facility] 2023 1:00am [facility] 2024 1:16p m 3 tablets by mouth [...] 9:16a m Mometasone (Nasonex) 50 mcg/actuati on [place],Non-A erosol Discont inued 2 SPRAY INTRAN CLARISSE [...] Twice daily as needed for as directed Februa ry 2024 11:35a m [employer] application Externally Twice [...] PO .with food or milk 2024 1:00am Febru bill 2024 11:36 am [...] tablet Discont inued 0 PO .COMPLEX 20 13 October 24, 2024 12:00a m November 27, 2024 11:44 am 3 tabs a day x3 days then take 2 tabs a day x3 days then take 1 tab a day x3 then take 1/2 tablet a day x4 days with food or milk orally; Amoxicillin -Pot Clavulanate 875-125 mg tablet Discont inued 1 TAB PO Twice daily 20 October 24, 2024 12:00a m November 27, 2024 11:42 am with food Immunizations Immunization Event Date Not Given Reason Dose Number Paper Products Supervisor Lot Number Vaccine Information Statement (VIS) Detail Administration Location COVID-19 mRNA, Comirnaty (Pfizer) September 02, 2020 [id number] [facility] COVID-19 mRNA, Comirnaty (Pfizer) September 23, 2020 [id number] [facility] Tetanus, Diphtheria, Pertussis (Tdap) December 16, 2011 Trivalent Influenza Vaccine March 15, 2021 Patient Refused Vital Signs Vital Reading Result Reference Range [...] Mass Index) 46.4 kg/m2 November 182024 11:36am Advance Directives Advance Directive Response Recorded Date/ Time Advance Directives No September 14 018 9:20pm Insurance Providers Guarantor Laura Pathak Address [address] [place] [address] Contact Info. Home Phone: Payer Policy Id Subscriber's Name Subscriber Id Effectiv e Date Expiration Date John GUTIÉRREZ [id number] Bobby Noble [id number] [employer] [id number] Bobby Noble [id number] Encounters Encounter Location(s) Arrival/Admit Date Discharge/Depart Date Provider(s) Departed Physician/Prov ider Office Visit -[facility] [place] November 27, 2024 11:35am November 27, 2024 12:23pm Joe Barksdale , DO Recent Diagnosis Onset Date Admit Date Diabetes Unknown November 27, 2024 11:35am Hyperlipidemia Unknown November 27, 2024 11:35am Hypertension Unknown November 27, 2024 11:35am Hypothyroidism Unknown November 27, 2024 11:35am Palpitation Unknown November 27, 2024 11:35am Polyarthralgia Unknown November 27, 2024 11:35am Vitamin D deficiency Unknown November 27, 2024 11:35am Assessments Author Joe Barksdale [facility] Authored November 27, 2024 12:3 4pm The above note written by __ _Gail Saul____ acting as human recorder, note dictated by Dr. Jones .I performed the above HPI, ROS, and Examination. I formulated and dictated the treatment plan and was present for entire encounter. Joe Barksdale D.O. Plan of Treatment Author Gail Saul [facility] Authored November 27, 2024 12:2 4pm [...] a different blood pressure medication by the community reinvestment act officer. I did recommend that she restart the [...] to see. She saw a specialist in [place] who increased her Metformin dose to 2 [...] infections she should let myself or her NEW CAR INSPECTOR know. I will order lab to be [...] she will get this done through her NEW CAR INSPECTOR in [place]. Future Tests Future scheduled test information is [...]
--- NOTE | 2024-12-22 09:00 | NM_ITS ---
Patient Name: CANELO SINGH MR#: [id number] : 1965 Exam Date: 12/22/2024 Ordering Doctor: DR NEO DEE M.D. RADIOLOGY REPORT PROCEDURE: NM SIXTO PERF SPECT REST STR COMPARISON: None. INDICATIONS: SHORTNESS OF BREATH, CHEST PAIN TECHNIQUE: Exam Description: Stress/Rest two day protocol gated SPECT Rest Imagin.7 mCi Tc-99m Cardiolite IV on 12/22/2024 Stress Imaging 27.0 mCi Tc-99m Cardiolite IV on 12/25/2024 Exercise Protocol: 0.4 mg Lexiscan given IV Heart Rate (bpm): Rest: 85 Max: 113 PMHR: 69 Blood Pressure: Rest: 150/100 Max: 188/98 Symptoms: Rest and peak stress ECG findings were pending and the exercise portion of the study was pending per attending physician [facility] . For more details please see separate cardiac stress test report. FINDINGS: QUALITY OF STUDY: Good PERFUSION DEFECT: LOCATION: Mid anterior SIZE: Small SEVERITY: Mild TYPE: Reversible WALL MOTION: Normal LV SIZE: 96 mL. TID / TCD: 1.2 LVEF: Calculated EF 62%. SUMMARY: Abnormal myocardial perfusion imaging study CONCLUSION: Abnormal myocardial perfusion nuclear stress test showing small area of mild ischemia at the mid anterior segment Normal left ventricle systolic function, ejection fraction 62% No transient ischemic dilatation, TID 1.2 EKG portion of stress test is reported separately Dictated by: Mitesh Jennings MD on 12/26/2024 at 17:48 Approved by: Mitesh Jennings MD on 12/26/2024 at 17:59
--- OUTSIDE RECORDS SUMMARY | 2024-12-22 09:43 | XMS_ITS | Encounter Summary ---
Author Organization [facility] Address [address] [place] [address] Care Team Providers Care Special Needs Teacher Name Role Phone Jeff Jon MD Primary Care Provider [phone] Encounter Details Date Type Department Care Team (Late st Contact Info) Description 09/04/2023 Clinisync Result Encounter [facility] External Department Unsolicited Jennie Guillermo MD [address] [facility] [address] [place] [id number] Social History Tobacco Use Types Packs/Day Years [...] PM EDT Narrative 09/04/2023 4:54 PM EDT [address] [address] [address] Scan Report Signed Patient: CANELO SINGH MR#: [id number] : 1965 Acct:[id number] Age/Sex: 57 / F ADM Date: 09/04/23 Loc: CT Attending Dr: Jennie Guillermo M.D. Ordering Physician: Jennie Guillermo M.D. Date of Service: 09/04/23 Procedure(s): CT int auditory canals w con Accession Number(s): [id number] cc: JEFF JON [place] [address] Patient Name: CANELO SINGH MRN: [id number] date: 1965 Sex: F Assigned Patient Location: CT Current Patient Location: CT Accession/Order Number: [id number] Exam Date: 09/04/2023 13:20 Report Date: 09/04/2023 [...] M.D. Signed By: 09/04/231653 DD/ 51 TD/TT: Client Business Manager: Procedure Note Radiology, Radiologist, MD - 09/04/2023 [place] [address] CT Scan Report Signed Patient: CANELO SINGH LMR#: [id number] : 1965Acct:[id number] Age/Sex: 57 / FADM Date: 09/04/23 Loc: CT Attending Dr: Jennie Guillermo M.D. Ordering Physician: Jennie Guillermo M.D. Date of Service: 09/04/23 Procedure(s): CT int auditory canals w con Accession Number(s): [id number] cc: JEFF JON [place] [address] Patient Name: CANELO SINGH MRN: [id number] date: 1965 Sex: F Assigned Patient Location: CT Current Patient Location: CT Accession/Order Number: [id number] Exam Date: 09/04/2023 13:20 Report Date: 09/04/2023 [...] VEE M.D. Signed By:09/04/231653 DD/ 51 TD/TT: Client Business Manager: us Jennie Guillermo MD IMG CT PROCEDURES Final Resul t documented in this encounter Visit Diagnoses Not on filedocumented in this encounter Care Teams Special Needs Teacher Relationship Specialty Start Date End Date Jeff Jon MD [address] [place] [address] [place] [address] PCP - General Family Medicine 10/18/22 documented as of this encounter
--- OUTSIDE RECORDS SUMMARY | 2024-12-22 09:43 | XMS_ITS | Clinical Summary ---
Author Organization [facility] Address [address] [place] [address] Care Team Providers Care Manager Psychiatry Name Role Phone Joe Barksdale Lilli BETH Primary Care Provider Allergies Active Allergy Reactions Criticality Noted Date [...] 9 Active mometasone furoate(NASONEX 50 MCG/ACTUATION SPRAY) [place] twice in each nostril once daily. 0 [...] History Medical History Relation Comments Hypertension Brother [place] Brother Diabetes Father Ischemic Heart Disease Father [...] N ot on file 06/07/2022 Data from: [email or web address] Last address used for calculation [address] [...] (2 - Td or Tdap) 12/15/2021 12/16/2011 Diabetes Screening 10/07/2024 10/07/2021, 0 10/07/2021, 06/16/2021, Additional history exists Influenza Vaccine (#1) 2025 03/15/2021 Hepatitis C Screening Completed 05/16/2007 Procedures Procedure [...] COMP METABOLIC PANEL (10/07/2021 2:42 PM EDT) [facility] Protein, Total 7.3 6.3 - 8.0 g/dL 10/07/2021 8:[address] [facility] Albumin 4.8 3.9 - 4.9 g/dL 10/07/2021 8:[address] [facility] Calcium, Total 10.3(H) 8.5 - 10.2 mg/dL 10/07/2021 8:[address] [facility] Bilirubin, Total 0.5 0.2 - 1.3 mg/dL 10/07/2021 8:[address] [facility] Alkaline Phosphatase 72 34 - 123 U/L 10/07/2021 8:[address] [facility] AST 17 13 - 35 U/L 10/07/2021 8:[address] [facility] ALT 24 7 - 38 U/L 10/07/2021 8:[address] [facility] Glucose 124(H) 74 - 99 mg/dL 10/07/2021 8:[address] [facility] Comment: The [place] Diabetes Association (ADA) provides guidance for cutoff [...] Standards of Medical Care in Diabetes 2016, [place] Diabetes Association. Diabetes Care. 2016.39(Suppl 1). BUN 18 7 - 21 mg/dL 10/07/2021 8:[address] [facility] Creatinine 0.70 0.58 - 0.96 mg/dL 10/07/2021 8:[address] [facility] Sodium 139 136 - 144 mmol/L 10/07/2021 8:[address] [facility] Potassium 4.1 3.7 - 5.1 mmol/L 10/07/2021 8:[address] [facility] Chloride 100 97 - 105 mmol/L 10/07/2021 8:[address] [facility] CO2 28 22 - 30 mmol/L 10/07/2021 8:[address] [facility] Anion Gap 11 9 - 18 mmol/L 10/07/2021 8:[address] [facility] Estimated Glomerular Filtration Rate 103 >=60 mL/min/1. 73m 10/07/2021 8:[address] [facility] Comment:Estimated Glomerular Filtration Rate (eGFR) [...] us Neto Ansari MD LABORATORY Final Result [facility] [address] [place] [address], * HEP REMOTE PANEL BL (05/16/2007 2:25 PM EST) Hep B Core Ab, Total Negative NEGAT [facility] Hep C Antibody IA Negative NEGAT [facility] HBsAg Negative NEGAT [facility] Hep B Surface Ab, Qual Negative NEGAT [facility] Comment: A negative Hepatitis B Surface Antibody is indicative of: 1)no prior exposure to HBV, 2)lack of antibody response to an acute or chronic HBV infection, 3)lack of antibody response to HBV vaccination, or, 4)loss of immunity that followed either vaccination or infection. Blood specimen (specimen) BLOOD SPECIMEN / Unknown 05/16/2007 2:25 PM EST us Leena Seymour MD LABORATORY Final Result [facility] [address] [place] [address] from Last 3 Months or Most Recently Relevant to Health Maintenance Insurance [employer] Care Teams Manager Psychiatry Relationship Specialty Start Date End Date Joe Barksdale DO [address] [place] [address] PCP - General Family Medicine 08/01/18
--- OUTSIDE RECORDS SUMMARY | 2024-12-22 09:43 | XMS_ITS | Encounter Summary ---
Author Organization [facility] Address [address] [place] [address] Care Team Providers Care Payroll Assistant Name Role Phone Joe Barksdale MD Primary Care Provider [phone] Encounter Details Date Type Department Care Team (Late st Contact Info) Description 10/04/2022 Abstract [facility] [address] [facility] [address] [place] [address] Livia Kirk, [place] [address] [facility] [address] [place] [address] Social History Tobacco Use Types Packs/Day Years [...] on filedocumented in this encounter Care Teams Payroll Assistant Relationship Specialty Start Date End Date Joe Barksdale MD [address] [place] [address] PCP - General Family Medicine 10/18/22 documented as of this encounter
--- OUTSIDE RECORDS SUMMARY | 2024-12-22 09:43 | XMS_ITS | Encounter Summary ---
Author Organization [facility] Address [address] [place] [address] Care Team Providers Care Game Tester Name Role Phone Jose Luis Rodriguez Primary Care Provider [phone] Joe Barksdale DO Primary Care Provider [phone] Source Comments In the event this information is protected by the Federal Confidentiality of Alcohol and Drug AbusePatient Records regulations: The Federal rules restrict any use of the information to criminally investigate or prosecute any alcohol or drug abuse patient.[facility] Encounter Details Date Type Department Care Team (Late st Contact Info) Description 11/13/2016 Patient Msg Functional Medicine [address] [address] [place] [address] [place] [address] Appointment Cancellation Request Social History Tobacco Use [...] on filedocumented in this encounter Care Teams Game Tester Relationship Specialty Start Date End Date Jennifer Jose Luis [address] [place] [address] PCP - General 03/16/08 07/31/18 Joe Barksdale DO [address] [place] [address] PCP - General Family Medicine 08/01/18 documented as of this encounter
--- OUTSIDE RECORDS SUMMARY | 2024-12-22 09:43 | XMS_ITS | Encounter Summary ---
Author Organization [facility] Address [address] [place] [address] Care Team Providers Care [facility] Network Pricing Consultant Name Role Phone Jose Luis Rodriguez Primary Care Provider [phone] Joe Barksdale DO Primary Care Provider [phone] Source Comments In the event this information is protected by the Federal Confidentiality of Alcohol and Drug AbusePatient Records regulations: The Federal rules restrict any use of the information to criminally investigate or prosecute any alcohol or drug abuse patient.[facility] Encounter Details Date Type Department Care Team (Late st Contact Info) Description 11/13/2016 Patient Msg Functional Medicine [address] [address] [place] [address] [place] [address] Appointment Cancellation Request Social History Tobacco Use [...] on filedocumented in this encounter Care Teams Healthcare Network Pricing Consultant Relationship Specialty Start Date End Date Jennifer Jose Luis [address] [place] [address] PCP - General 03/16/08 07/31/18 Joe Barksdale DO [address] [place] [address] PCP - General Family Medicine 08/01/18 documented as of this encounter
--- OUTSIDE RECORDS SUMMARY | 2024-12-22 09:43 | XMS_ITS | Encounter Summary ---
Author Organization [facility] Address [address] [place] [address] Care Team Providers Care Fire Alarm Dispatcher Name Role Phone Jose Luis Rodriguez Primary Care Provider [phone] Joe Barksdale DO Primary Care Provider [phone] Source Comments In the event this information is protected by the Federal Confidentiality of Alcohol and Drug AbusePatient Records regulations: The Federal rules restrict any use of the information to criminally investigate or prosecute any alcohol or drug abuse patient.[facility] Encounter Details Date Type Department Care Team (Late st Contact Info) Description 08/02/2016 Patient Msg Medical Records [address] [place] [address] Provider, [facility] Important notice: provider change for [...] on filedocumented in this encounter Care Teams Fire Alarm Dispatcher Relationship Specialty Start Date End Date Jose Luis Rodriguez [address] [place] [address] PCP - General 03/16/08 07/31/18 Joe Barksdlae DO [address] [place] [address] PCP - General Family Medicine 08/01/18 documented as of this encounter
--- OUTSIDE RECORDS SUMMARY | 2024-12-22 09:43 | XMS_ITS | Encounter Summary ---
Author Organization [facility] Address [address] [place] [address] Care Team Providers Care Industrial Energy Engineer Name Role Phone Joe Barksdale MD Primary Care Provider [phone] Encounter Details Date Type Department Care Team (Late st Contact Info) Description 10/04/2022 Abstract [facility] [address] [facility] [address] [place] [address] Livia Kirk, [place] [address] [facility] [address] [place] [address] Social History Tobacco Use Types Packs/Day Years [...] on filedocumented in this encounter Care Teams Industrial Energy Engineer Relationship Specialty Start Date End Date Joe Barksdale MD [address] [place] [address] PCP - General Family Medicine 10/18/22 documented as of this encounter
--- OUTSIDE RECORDS SUMMARY | 2024-12-22 09:43 | XMS_ITS | Encounter Summary ---
Author Organization [facility] Address [address] [place] [address] Care Team Providers Care Upper Doubler Name Role Phone Jeff Jon MD Primary Care Provider [phone] Encounter Details Date Type Department Care Team (Late st Contact Info) Description 10/09/2023 Clinisync Result Encounter [facility] External Department Unsolicited Marianela Guillermo MD [address] [facility] [address] [place] [address] Social History Tobacco Use Types Packs/Day Years [...] EDT Narrative 10/09/2023 9:18 PM EDT The [address] [address] Magnetic Resonance Report Signed Patient: CANELO SINGH MR#: [id number] : 1965 Acct:[id number] Age/Sex: 58 / F ADM Date: 10/09/23 Loc: MRI Attending Dr: Marianela Guillermo M.D. Ordering Physician: Marianela Guillermo M.D. Date of Service: 10/09/23 Procedure(s): MR head/brain wo/w con Accession Number(s): [id number] cc: JEFF JON ; Marianela Guillermo M.D. The [address] [address] Patient Name: CANELO SINGH MRN: [id number] date: 1965 Sex: F Assigned Patient Location: MRI Current Patient Location: MRI Accession/Order Number: [id number] Exam Date: 10/09/2023 12:50 Report Date: 10/09/2023 [...] PATEL Date: 10/09/2023 21:15 Dictated By: Ramirez Ptael M.D. Signed By: 10/09/232117 DD/ 14 TD/TT: Platen Drier Operator: Procedure Note Radiology, Radiologist, MD - 10/09/2023 [place] [address] Magnetic Resonance Report Signed Patient: CANELO SINGH LMR#: [id number] : 1965Acct:[id number] Age/Sex: 58 / FADM Date: 10/09/23 Loc: MRI Attending Dr: Marianela Guillermo M.D. Ordering Physician: Marianela Guillermo M.D. Date of Service: 10/09/23 Procedure(s): MR head/brain wo/w con Accession Number(s): [id number] cc: JEFF JON ; Marianela Guillermo M.D. The [place] [id number] Patient Name: CANELO SINGH MRN: [id number] date: 1965 Sex: F Assigned Patient Location: MRI Current Patient Location: MRI Accession/Order Number: [id number] Exam Date: 10/09/2023 12:50 Report Date: 10/09/2023 [...] Patel M.D. Signed By:10/09/232117 DD/ 14 TD/TT: Platen Drier Operator: us Marianela Guillermo MD IMG XR PROCEDURES Final Resul t documented in this encounter Visit Diagnoses Not on filedocumented in this encounter Care Teams Upper Doubler Relationship Specialty Start Date End Date Jeff Jon MD [address] [place] [address] [address] [place] [id number] PCP - General Family Medicine 10/18/22 documented as of this encounter
--- OUTSIDE RECORDS SUMMARY | 2024-12-22 09:43 | XMS_ITS | Encounter Summary ---
Author Organization [facility] Address [address] [place] [address] Care Team Providers Care Skin Tanner Name Role Phone Joe Barksdale MD Primary Care Provider [phone] Encounter Details Date Type Department Care Team (Late st Contact Info) Description 10/04/2022 Abstract [facility] [address] [facility] [address] [place] [address] Livia Kirk, [place] 112 [facility] [address] [place] [address] Social History Tobacco Use Types Packs/Day Years [...] filedocumented in this encounter Care Teams Skin Tanner Relationship Specialty Start Date End Date Joe Barksdale MD [address] [place] [address] PCP - General Family Medicine 10/18/22 documented as of this encounter
--- OUTSIDE RECORDS SUMMARY | 2024-12-22 09:43 | XMS_ITS | Encounter Summary ---
Author Organization [facility] Address [address] [id number] Care Team Providers Care Technology Teacher Name Role Phone Joe Barksdale DO Primary Care Provider [phone] Source Comments In the event this information is protected by the Federal Confidentiality of Alcohol and Drug AbusePatient Records regulations: The Federal rules restrict any use of the information to criminally investigate or prosecute any alcohol or drug abuse patient.[facility] Encounter Details Date Type Department Care Team (Late st Contact Info) Description 06/23/2021 Patient Msg Endocrinology [address] [id number] Neto Ansari MD [address] [id number] results. Social History Tobacco Use Types Packs/Day [...] N ot on file 04/26/2020 Data from: https://www.neighborhoodatlas.[facility].edu/. Last address used for calculation Not [...] on filedocumented in this encounter Care Teams Technology Teacher Relationship Specialty Start Date End Date Joe Barksdale DO [address] [place] [address] PCP - General Family Medicine 08/01/18 documented as of this encounter
--- OUTSIDE RECORDS SUMMARY | 2024-12-22 09:43 | XMS_ITS | Encounter Summary ---
Author Organization [facility] Address [address] [place] [address] Care Team Providers Care Glove Cleaner Name Role Phone Joe Barksdale MD Primary Care Provider [phone] Encounter Details Date Type Department Care Team (Late st Contact Info) Description 08/14/2022 Abstract [facility] [address] [place] [address] Svetlana Allison, [facility] [address] [place] [address] Social History Tobacco Use Types Packs/Day Years [...] on filedocumented in this encounter Care Teams Glove Cleaner Relationship Specialty Start Date End Date Joe Barksdale MD [address] [place] [address] PCP - General Family Medicine 10/18/22 documented as of this encounter
--- OUTSIDE RECORDS SUMMARY | 2024-12-22 09:43 | XMS_ITS | Encounter Summary ---
Author Organization [facility] Address [address] [place] [address] Care Team Providers Care Venue Manager Name Role Phone Joe Barksdale MD Primary Care Provider [phone] Encounter Details Date Type Department Care Team (Late st Contact Info) Description 09/24/2023 Orders Only [facility] [address] [place] [address] Livia Kirk, [place] [address] [facility] 130 [place] [address] Asymmetric SNHL (sensorineural hearing loss); Right-sided tinnitus; [...] right documented in this encounter Care Teams Venue Manager Relationship Specialty Start Date End Date Joe Barksdale MD [address] [place] [id number] PCP - General Family Medicine 10/18/22 documented as of this encounter
--- OUTSIDE RECORDS SUMMARY | 2024-12-22 09:43 | XMS_ITS | Clinical Summary ---
Author Organization [facility] Address [address] [place] [address] Phone Care Team Providers Care Hotel Operation Manager Name Role Phone Joe Barksdale DO Primary Care Provider [phone] Social History Tobacco Use Types Packs/Day Years [...] on patient's age to complete this topic Hepatitis A Vaccines Aged Out No long [...] age to complete this topic Care Teams Hotel Operation Manager Relationship Specialty Start Date End Date Joe Barksdale DO PCP - General 09/27/22
--- OUTSIDE RECORDS SUMMARY | 2024-12-22 09:43 | XMS_ITS | Clinical Summary ---
Author Organization [facility] Address [address] [facility], [address] [place] [address] Care Team Providers Care Bottle Feeder Name Role Phone Joe Barksdale DO Primary [...] Not on file Insurance AETNA Care Teams Bottle Feeder Relationship Specialty Start Date End Date Joe Barksdale DO PCP - General Family Medicine 09/17/18
--- OUTSIDE RECORDS SUMMARY | 2024-12-22 09:43 | XMS_ITS | Clinical Summary ---
Author Organization [facility] Address [address] [place] [address] Care Team Providers Care Farmworker Fur Name Role Phone Joe Barksdale Primary Care Provider [phone] Allergies Active Allergy Reactions Criticality Noted Date [...] Hypertension 10/11/2023 Hypothyroidism 10/11/2023 Osteoarthritis 10/11/2023 Other watermelon inspector (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 4 Palpitation 10/11/2023 Polyarthralgia [...] Care Team (Late st Contact Info) Description 01/05/2025 10:30 AM EDT Office Visit [facility] [address] [place] [address] Ambrose Espino MD [address] [facility] [address] [facility] [place] [address] Health Maintenance Due Date Last [...] 2 - PCV) 09/10/1986 Pap Smear 09/10/1988 Cervical Cancer Screening 09/10/1997 HPV/Cotest 09/10/1997 Mammogram 2007 Zoster Vaccines (1 of 2) 09/10/2017 Adult Tetanus 12/15/2021 12/16/2011 COVID-19 Vaccine (2023-2 5 season) 2024 09/23/2020, [...] complete this topic Insurance AET[employer] Care Teams Farmworker Fur Relationship Specialty Start Date End Date Joe Barksdale DO [address] [address] PCP - General Family Medicine 08/22/24
--- OUTSIDE RECORDS SUMMARY | 2024-12-22 09:43 | XMS_ITS | Clinical Summary ---
Author Organization [facility] Address [address] [place] [address] Care Team Providers Care Belt Fixer Name Role Phone Joe Barksdale MD Primary Care Provider [phone] Allergies Active Allergy Reactions Criticality Noted Date [...] 10/11/2023 Hypothyroidism 10/11/2023 Osteoarthritis 10/11/2023 Other exterminator (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 Palpitation 10/11/2023 Polyarthralgia 10/11/2023 [...] Vaccine (#1) 2025 Insurance A[employer] Care Teams Belt Fixer Relationship Specialty Start Date End Date Joe Barksdale MD [address] [place] [address] PCP - General Family Medicine 10/18/22
== END 2024-12-22 09:41 | disposition home or self-care (01) ==
LOC: NM 09:40
PROVIDERS: PCP Family Medicine; Visit Provider Internal Medicine Interventional Cardiology
DX: R06.02 Shortness of breath (principal); R07.89 Other chest pain
CPT/HCPCS: 78452; A9500

== ENCOUNTER 2024-12-25 09:58 | Outpatient (OUT) | payer OTHER, SELFPAY ==
--- OUTSIDE RECORDS SUMMARY | 2022-04-24 09:50 | XMS_ITS | Continuity of Care Document ---
Author Organization [facility] Address [address] [place] [address] Phone Care Team Providers Care Virginia Line Attendant Name Role Phone Sandra Borges MD Unavailable Unavailab le Allergies, Adverse Reactions, Alerts Substance Reaction Status Criticality Penicillins Active No Information Medications Medication Instructions Dosage Effective Dates (start - stop) Status Comments Imitrex 50 mg tablet take 2 tablet by or al route once with fluids as early as possible after the onset of a migraine attack;may repeat after 2 hours if headache returns, not to exceed 200mgin 24hrs 100 MG - Active Bystolic 10 mg tablet take 2 tablet by o ral route every day 20 MG - Active Ultram 50 mg tablet take 1 tablet by ora l route every 6 hours as needed - Active Procedures Procedure Date OFFICE/OUTPATIENT VISIT, NEW Site #1 Shave Biopsy # Add'tl Sites Shave Biopsy TISSUE EXAM BY PATHOLOGIST Advance Directives Directive Yes / No Effective Date File Name No Information Encounters Encounter Description Practice Location Reason(s) For Visit Diagnoses Date Provider Providers Copied on Encounter OFFICE/OUTPA TIENT VISIT, [facility], [address] [place], [address], [place] tel:[phone] [facility] skin cancer screening (chief complaint) Other seborrheic keratosisBenign neoplasm of skin, site unspecifiedNeop lasm of uncertain behavior of skin 2 Katerina Flores . [address] [facility] [place] [id number] , . tel:[phone] Family History Family Member Type Diagnosis Age At Onset No Information Payers Payer name Insurance type Covered libertarian ID Bee nunez(s) [facility] Medicare [facility] [id number] Medicaid [id number] Social History Type Description Quantity Date Captured Comments Alcohol Use Details Unknown Caffeine Use Details Unknown Tobacco Use Status No Information Smoking Status Former smoker Non-Smoking Tobacco Use Details : No Details Available : No Details Available Sex Female Chief Complaint And Reason For Visit From encounter dated '04/24/2022 13:50'. skin cancer screening (chief complaint) Reason For Referral Reason For Referral No Information Plan Of Treatment Date Type Action Status Goal Tobacco cessation counseling completed Future Order: Lab Order Slide On ly ([id number]), Collected on: , Sent on: Sent History Of Present Illness Encounter Date Complaint History Of Prese nt Illness skin cancer screening Functional Status Date Functional Assessmen t No Information Instructions Date Instruction Additional Infor mation No Information Assessments Type Assessment Date assessment Other seborrheic keratosis assessment Benign neoplasm of skin, site un specified assessment Neoplasm of uncertain behavior o f skin impression Mental Status Date Cognitive Assessment Orientation - [place] ed to time, place, person, situation. Patient Care Teams Name Effective Dates (start - stop) Status Members No Information
--- OUTSIDE RECORDS SUMMARY | 2024-12-25 10:00 | XMS_ITS | Encounter Summary ---
Author Organization [facility] Address [address] [place] [address] Care Team Providers Care Pie Chef Name Role Phone Jeff Jon MD Primary Care Provider [phone] Encounter Details Date Type Department Care Team (Late st Contact Info) Description 10/09/2023 Clinisync Result Encounter [facility] External Department Unsolicited Marianela Guillermo MD [address] [facility] 130 [place] [address] Social History Tobacco Use Types Packs/Day Years [...] EDT Narrative 10/09/2023 9:18 PM EDT The [address] [address] Magnetic Resonance Report Signed Patient: CANELO SINGH MR#: [id number] : 1965 Acct:[id number] Age/Sex: 58 / F ADM Date: 10/09/23 Loc: MRI Attending Dr: Marianela Guillermo M.D. Ordering Physician: Marianela Guillermo M.D. Date of Service: 10/09/23 Procedure(s): MR head/brain wo/w con Accession Number(s): [id number] cc: JEFF JON ; Marianela Guillermo M.D. The [address] [address] Patient Name: CANELO SINGH MRN: [id number] date: 1965 Sex: F Assigned Patient Location: MRI Current Patient Location: MRI Accession/Order Number: [id number] Exam Date: 10/09/2023 12:50 Report Date: 10/09/2023 [...] M.D. Signed By: 10/09/232117 DD/ 14 TD/TT: System Trainer: Procedure Note Radiology, Radiologist, MD - 10/09/2023 [place] [address] Magnetic Resonance Report Signed Patient: CANELO SINGH LMR#: [id number] : 1965Acct:[id number] Age/Sex: 58 / FADM Date: 10/09/23 Loc: MRI Attending Dr: Marianela Guillermo M.D. Ordering Physician: Marianela Guillermo M.D. Date of Service: 10/09/23 Procedure(s): MR head/brain wo/w con Accession Number(s): [id number] cc: JEFF JON ; Marianela Guillermo M.D. The [place] [id number] Patient Name: CANELO SINGH MRN: [id number] date: 1965 Sex: F Assigned Patient Location: MRI Current Patient Location: MRI Accession/Order Number: [id number] Exam Date: 10/09/2023 12:50 Report Date: 10/09/2023 [...] Patel M.D. Signed By:10/09/232117 DD/ 14 TD/TT: System Trainer: us Marianela Guillermo MD IMG XR PROCEDURES Final Resul t documented in this encounter Visit Diagnoses Not on filedocumented in this encounter Care Teams Pie Chef Relationship Specialty Start Date End Date Jeff Jon MD [address] [place] [address] [address] [place] [id number] PCP - General Family Medicine 10/18/22 documented as of this encounter
--- OUTSIDE RECORDS SUMMARY | 2024-12-25 10:00 | XMS_ITS | Clinical Summary ---
Author Organization [facility] Address [address] [place] [address] Phone Care Team Providers Care Block Trader Name Role Phone Joe Barksdale DO Primary Care Provider [phone] Social History Tobacco Use Types Packs/Day Years [...] age to complete this topic Care Teams Block Trader Relationship Specialty Start Date End Date Joe Barksdale DO PCP - General 09/27/22
--- OUTSIDE RECORDS SUMMARY | 2024-12-25 10:00 | XMS_ITS | Encounter Summary ---
Author Organization [facility] Address [address] [place] [address] Care Team Providers Care Product Design Specialist Name Role Phone Joe Barksdale MD Primary Care Provider [phone] Encounter Details Date Type Department Care Team (Late st Contact Info) Description 10/04/2022 Abstract [facility] [address] [facility] [address] [place] [address] Livia Kirk, RN [address] [facility] [address] [place] [address] Social History Tobacco Use Types Packs/Day Years [...] on filedocumented in this encounter Care Teams Product Design Specialist Relationship Specialty Start Date End Date Joe Barksdale MD [address] [place] [address] PCP - General Family Medicine 10/18/22 documented as of this encounter
--- OUTSIDE RECORDS SUMMARY | 2024-12-25 10:00 | XMS_ITS | Encounter Summary ---
Author Organization [facility] Address [address] [place] [address] Care Team Providers Care Juice Bar Team Member Name Role Phone Joe Barksdale MD Primary Care Provider [phone] Encounter Details Date Type Department Care Team (Late st Contact Info) Description 10/04/2022 Abstract [facility] [address] [facility] [address] [place] [address] Livia Kirk, RN [address] [facility] [address] [place] [address] Social History Tobacco Use Types Packs/Day Years [...] on filedocumented in this encounter Care Teams Juice Bar Team Member Relationship Specialty Start Date End Date Joe Barksdale MD [address] [place] [address] PCP - General Family Medicine 10/18/22 documented as of this encounter
--- OUTSIDE RECORDS SUMMARY | 2024-12-25 10:00 | XMS_ITS | Clinical Summary ---
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
--- OUTSIDE RECORDS SUMMARY | 2024-12-25 10:00 | XMS_ITS | Encounter Summary ---
Author Organization [facility] Address [address] [place] [address] Care Team Providers Care Long Term Care Pharmacist Name Role Phone Joe Barksdale MD Primary Care Provider [phone] Encounter Details Date Type Department Care Team (Late st Contact Info) Description 09/24/2023 Orders Only [facility] [place] Ot[facility] [address] [place] [address] Livia Kirk, HAI[place] 112 [facility] 130 [place] [address] Asymmetric SNHL (sensorineural hearing loss); Right-sided tinnitus; [...] right documented in this encounter Care Teams Long Term Care Pharmacist Relationship Specialty Start Date End Date Joe Barksdale MD [address] [place] [id number] PCP - General Family Medicine 10/18/22 documented as of this encounter
--- OUTSIDE RECORDS SUMMARY | 2024-12-25 10:00 | XMS_ITS | Encounter Summary ---
Author Organization [facility] Address [address] [place] [address] Care Team Providers Care Fur Operator Name Role Phone Jose Luis Rodriguez Primary Care Provider [phone] Joe Barksdale DO Primary Care Provider [phone] Source Comments In the event this information is protected by the Federal Confidentiality of Alcohol and Drug AbusePatient Records regulations: The Federal rules restrict any use of the information to criminally investigate or prosecute any alcohol or drug abuse patient.[facility] Encounter Details Date Type Department Care Team (Late st Contact Info) Description 11/13/2016 Patient Msg Functional Medicine [address] [address] [place] [address] [place] [address] Appointment Cancellation Request Social History Tobacco Use [...] on filedocumented in this encounter Care Teams Fur Operator Relationship Specialty Start Date End Date Jennifer Jose Luis Saldivar [address] [place] [address] PCP - General 03/16/08 07/31/18 Joe Barksdale DO [address] [place] [address] PCP - General Family Medicine 08/01/18 documented as of this encounter
--- OUTSIDE RECORDS SUMMARY | 2024-12-25 10:00 | XMS_ITS | Clinical Summary ---
Author Organization [facility] Address [address] [place] [address] Care Team Providers Care Hose Builder Name Role Phone Joe Barksdale Lilli BETH Primary Care Provider [phone] Allergies Active Allergy Reactions Criticality Noted Date [...] 9 Active mometasone furoate(NASONEX 50 MCG/ACTUATION SPRAY) [place] twice in each nostril once daily. 0 [...] History Medical History Relation Comments Hypertension Brother CT Brother Diabetes Father Ischemic Heart Disease Father [...] N ot on file 06/07/2022 Data from: https://www.neighborhoodatlas.medicine.[facility].edu/. Last address used for calculation [address] [...] COMP METABOLIC PANEL (10/07/2021 2:42 PM EDT) [facility] Protein, Total 7.3 6.3 - 8.0 g/dL 10/07/2021 8:04 PM EDT [facility] Albumin 4.8 3.9 - 4.9 g/dL 10/07/2021 8:04 PM EDT [facility] Calcium, Total 10.3(H) 8.5 - 10.2 mg/dL 10/07/2021 8:04 PM EDT [facility] Bilirubin, Total 0.5 0.2 - 1.3 mg/dL 10/07/2021 8:04 PM EDT [facility] Alkaline Phosphatase 72 34 - 123 U/L 10/07/2021 8:04 PM EDT [facility] AST 17 13 - 35 U/L 10/07/2021 8:04 PM EDT [facility] ALT 24 7 - 38 U/L 10/07/2021 8:04 PM T [facility] Glucose 124(H) 74 - 99 mg/dL 10/07/2021 8:04 PM T [facility] Comment: The [place] Diabetes Association (ADA) provides guidance for cutoff [...] Standards of Medical Care in Diabetes 2016, [place] [employer] Association. Diabetes Care. 2016.39(Suppl 1). BUN 18 7 - 21 mg/dL 10/07/2021 8:04 PM T [facility] Creatinine 0.70 0.58 - 0.96 mg/dL 10/07/2021 8:04 PM T [facility] Sodium 139 136 - 144 mmol/L 10/07/2021 8:04 PM T [facility] Potassium 4.1 3.7 - 5.1 mmol/L 10/07/2021 8:04 PM EDT [facility] Chloride 100 97 - 105 mmol/L 10/07/2021 8:04 PM EDT [facility] CO2 28 22 - 30 mmol/L 10/07/2021 8:04 PM EDT [facility] Anion Gap 11 9 - 18 mmol/L 10/07/2021 8:04 PM EDT [facility] Estimated Glomerular Filtration Rate 103 >=60 mL/min/1. 73m 10/07/2021 8:04 PM EDT [facility] Comment:Estimated Glomerular Filtration Rate (eGFR) is [...] us Neto Ansari MD LABORATORY Final Result [facility] [address] [place] [address], * HEP REMOTE PANEL BL (05/16/2007 2:25 PM EST) Hep B Core Ab, Total Negative NEGAT [facility] Hep C Antibody IA Negative NEGAT [facility] HBsAg Negative NEGAT [facility] Hep B Surface Ab, Qual Negative NEGAT [facility] Comment: A negative Hepatitis B Surface Antibody is indicative of: 1)no prior exposure to HBV, 2)lack of antibody response to an acute or chronic HBV infection, 3)lack of antibody response to HBV vaccination, or, 4)loss of immunity that followed either vaccination or infection. Blood specimen (specimen) BLOOD SPECIMEN / Unknown 05/16/2007 2:25 PM EST us Leena Seymour MD LABORATORY Final Result [facility] [address] [place] [address] from Last 3 Months or Most Recently Relevant to Health Maintenance Insurance AET[employer] Care Teams Hose Builder Relationship Specialty Start Date End Date Joe Barksdale DO [address] [place] [address] PCP - General Family Medicine 08/01/18
--- OUTSIDE RECORDS SUMMARY | 2024-12-25 10:00 | XMS_ITS | Clinical Summary ---
Author Organization Navin [facility] Address [address] [facility] [place] [address] Care Team Providers Care Financial Reporting Accountant Name Role Phone Joe Barksdale DO Primary [...] Not on file Insurance AETNA Care Teams Financial Reporting Accountant Relationship Specialty Start Date End Date Joe Barksdale DO PCP - General Family Medicine 09/17/18
--- OUTSIDE RECORDS SUMMARY | 2024-12-25 10:00 | XMS_ITS | Encounter Summary ---
Author Organization [facility] Address [address] [place] [address] Care Team Providers Care Analyzer Sales Name Role Phone Joe Barksdale MD Primary Care Provider [phone] Encounter Details Date Type Department Care Team (Late st Contact Info) Description 08/14/2022 Abstract [facility] [address] [place] [address] Svetlana Allison, [facility] [address] [place] [address] Social History Tobacco Use Types Packs/Day Years [...] on filedocumented in this encounter Care Teams Analyzer Sales Relationship Specialty Start Date End Date Joe Barksdale MD [address] [place] [address] PCP - General Family Medicine 10/18/22 documented as of this encounter
--- OUTSIDE RECORDS SUMMARY | 2024-12-25 10:00 | XMS_ITS | Encounter Summary ---
Author Organization [facility] Address [address] [place] [address] Care Team Providers Care Trademark Attorney Name Role Phone Jose Luis Rodriguez Primary Care Provider [phone] Joe Barksdale DO Primary Care Provider [phone] Source Comments In the event this information is protected by the Federal Confidentiality of Alcohol and Drug AbusePatient Records regulations: The Federal rules restrict any use of the information to criminally investigate or prosecute any alcohol or drug abuse patient.[facility] Encounter Details Date Type Department Care Team (Late st Contact Info) Description 08/02/2016 Patient Msg Medical Records [address] [place] [address] Provider, [facility] Important notice: provider change for [...] on filedocumented in this encounter Care Teams Trademark Attorney Relationship Specialty Start Date End Date Jose Luis Rodriguez [address] [place] [address] PCP - General 03/16/08 07/31/18 Joe Barksdale DO [address] [place] [address] PCP - General Family Medicine 08/01/18 documented as of this encounter
--- OUTSIDE RECORDS SUMMARY | 2024-12-25 10:00 | XMS_ITS | Encounter Summary ---
Author Organization [facility] Address [address] [place] [address] Care Team Providers Care Die Sinking Machine Operator Name Role Phone Joe Barksdale MD Primary Care Provider [phone] Encounter Details Date Type Department Care Team (Late st Contact Info) Description 10/04/2022 Abstract [facility] [address] [facility] [address] [place] [address] Livia Kirk, RN 112 [facility] [address] [place] [address] Social History Tobacco Use Types Packs/Day Years [...] on filedocumented in this encounter Care Teams Die Sinking Machine Operator Relationship Specialty Start Date End Date Joe Barksdale MD [address] [place] [address] PCP - General Family Medicine 10/18/22 documented as of this encounter
--- OUTSIDE RECORDS SUMMARY | 2024-12-25 10:00 | XMS_ITS | Encounter Summary ---
Author Organization [facility] Address [address] [place] [address] Care Team Providers Care Track Patrol Name Role Phone Jeff Jon MD Primary Care Provider [phone] Encounter Details Date Type Department Care Team (Late st Contact Info) Description 09/04/2023 Clinisync Result Encounter [facility] External Department Unsolicited Jennie Guillermo MD [address] [facility] [address] [id number] Social History Tobacco Use Types Packs/Day Years [...] PM EDT Narrative 09/04/2023 4:54 PM EDT [address] [address] [address] Scan Report Signed Patient: CANELO SINGH MR#: [id number] : 1965 Acct:[id number] Age/Sex: 57 / F ADM Date: 09/04/23 Loc: CT Attending Dr: Jennie Guillermo M.D. Ordering Physician: Jennie Guillermo M.D. Date of Service: 09/04/23 Procedure(s): CT int auditory canals w con Accession Number(s): [id number] cc: JEFF JON [place] [address] Patient Name: CANELO SINGH MRN: [id number] date: 1965 Sex: F Assigned Patient Location: CT Current Patient Location: CT Accession/Order Number: [id number] Exam Date: 09/04/2023 13:20 Report Date: 09/04/2023 [...] M.D. Signed By: 09/04/231653 DD/ 51 TD/TT: Veneer Clipper Helper: Procedure Note Radiology, Radiologist, MD - 09/04/2023 [place] [address] CT Scan Report Signed Patient: CANELO SINGH LMR#: [id number] : 1965Acct:[id number] Age/Sex: 57 / FADM Date: 09/04/23 Loc: CT Attending Dr: Jennie Guillermo M.D. Ordering Physician: Jennie Guillermo M.D. Date of Service: 09/04/23 Procedure(s): CT int auditory canals w con Accession Number(s): [id number] cc: JEFF JON [place] [address] Patient Name: CANELO SINGH MRN: [id number] date: 1965 Sex: F Assigned Patient Location: CT Current Patient Location: CT Accession/Order Number: [id number] Exam Date: 09/04/2023 13:20 Report Date: 09/04/2023 [...] VEE M.D. Signed By:09/04/231653 DD/ 51 TD/TT: Veneer Clipper Helper: us Jennie Guillermo MD IMG CT PROCEDURES Final Resul t documented in this encounter Visit Diagnoses Not on filedocumented in this encounter Care Teams Track Patrol Relationship Specialty Start Date End Date Jeff Jon MD [address] [place] [address] [place] [address] PCP - General Family Medicine 10/18/22 documented as of this encounter
--- OUTSIDE RECORDS SUMMARY | 2024-12-25 10:01 | XMS_ITS | Encounter Summary ---
Author Organization [facility] Address [address] [id number] Care Team Providers Care Leather Roller Name Role Phone Joe Barksdale DO Primary Care Provider [phone] Source Comments In the event this information is protected by the Federal Confidentiality of Alcohol and Drug AbusePatient Records regulations: The Federal rules restrict any use of the information to criminally investigate or prosecute any alcohol or drug abuse patient.[facility] Encounter Details Date Type Department Care Team (Late st Contact Info) Description 06/23/2021 Patient Msg Endocrinology [address] [id number] Neto Ansari MD [address] [id number] results. Social History Tobacco Use Types Packs/Day [...] N ot on file 04/26/2020 Data from: https://www.neighborhoodatlas.[facility].edu/. Last address used for calculation Not [...] on filedocumented in this encounter Care Teams Leather Roller Relationship Specialty Start Date End Date Joe Barksdale DO [address] [place] [address] PCP - General Family Medicine 08/01/18 documented as of this encounter
== END 2024-12-25 09:59 | disposition home or self-care (01) ==
LOC: CARD 09:58
PROVIDERS: PCP Family Medicine; Visit Provider Internal Medicine Interventional Cardiology
DX: R06.02 Shortness of breath (principal); R07.89 Other chest pain
CPT/HCPCS: 93017; 93306; J2785

== ENCOUNTER 2024-12-25 10:00 | Outpatient (OUT) | payer OTHER, SELFPAY ==
--- OUTSIDE RECORDS SUMMARY | 2024-12-25 10:02 | XMS_ITS | Encounter Summary ---
Author Organization [facility] Address [address] [place] [address] Care Team Providers Care Associate Professor Of Geography Name Role Phone Jose Luis Rodriguez Primary Care Provider [phone] Joe Barksdale DO Primary Care Provider [phone] Source Comments In the event this information is protected by the Federal Confidentiality of Alcohol and Drug AbusePatient Records regulations: The Federal rules restrict any use of the information to criminally investigate or prosecute any alcohol or drug abuse patient.[facility] Encounter Details Date Type Department Care Team (Late st Contact Info) Description 11/13/2016 Patient Msg Functional Medicine [address] [address] [place] [address] [place] [address] Appointment Cancellation Request Social History Tobacco Use [...] on filedocumented in this encounter Care Teams Associate Professor Of Geography Relationship Specialty Start Date End Date Jennifer Jose Luis Saldivar [address] [place] [address] PCP - General 03/16/08 07/31/18 Joe Barksdale DO [address] [place] [address] PCP - General Family Medicine 08/01/18 documented as of this encounter
[2024-12-25] MEDS: REGADENOSON 0.4 MG/5 ML SYRINGE IV (11:00)
--- NOTE | 2024-12-25 11:23 | PC.NURSE ---
Nursing Note Cardiac Stress Test Reviewed: Medication, allergies and patient history reviewed. Stress Test: [ x] Patient tolerated stress test well. [ ] Patient unable to tolerate walking on treadmill. Switched to Lexiscan stress test. [ x] No chest pain noted per patient [ ] Chest pain that resolved prior to leaving stress lab. [ x] No dyspnea noted. [ ] Dyspnea that resolved prior to leaving stress lab. [x ] Patient left stress lab asymptomatic and hemodynamically stable. [ ] Patient taken to the Emergency Room due to non-resolving symptoms following stress test. [ ] Patient achieved target heart rate. [ ] Patient unable to achieve target heart rate. [ ] Aminophylline administered as reversal agent to Lexiscan (Regadenoson). [ ] Nitro administered. Nursing Comments: Headache and nausea. Patient states frequent headaches and nausea is common.
--- NOTE | 2024-12-25 19:21 | PM.STRESS ---
Stress Test Stress Test Allergies Allergy/AdvReac Type Severity Reaction Status Date / Time clarithromycin (From Biaxin) Allergy Mild Rash Verified 08/05/24 10:56 gatifloxacin (From Tequin) Allergy Mild Rash Verified 08/05/24 10:56 levaquin Allergy Mild Rash Uncoded 08/05/24 10:56 Requesting physician: NEO DEE Procedure: Lexiscan nuclear stress test General Information: Reason for Stress Test: [Shortness of breath] Cardiac History and Risk Factors: [Hypertension, history of cardiovascular disease] Resting 12 - Lead Electrocardiogram: Resting twelve-lead EKG showed normal sinus rhythm, heart rate 84 bpm, normal EKG. Resting blood pressure 150/100 mmHg Lexiscan 0.4 mg was injected intravenously and the patient was monitored for few minutes. Peak heart rate 113 bpm which represents 69% of age-predicted maximum heart rate. The peak blood pressure 188/98 mmHg. The patient experienced headache and nausea which resolved spontaneously. Patient did not report any chest or neck or jaw or arm pain. EKG throughout the test did not show any significant T or ST changes or any arrhythmias Stress Test: Protocol: [Lexiscan] Exercise Capacity: [Not applicable] Blood Pressure Response: [Normal] Rhythm: [No arrhythmia] ST - Response: [No changes] Patient Response: [Headache and nausea] Interpretation: Negative Lexiscan EKG stress test for ischemia The nuclear myocardial perfusion images is reported separately Mitesh Jennings MD, FACC
== END 2024-12-25 10:01 | disposition home or self-care (01) ==
LOC: CARD 10:00
PROVIDERS: PCP Family Medicine; Visit Provider Internal Medicine Interventional Cardiology
DX: R06.02 Shortness of breath (principal); R07.89 Other chest pain
CPT/HCPCS: 93017; J2785

== ENCOUNTER 2025-01-06 12:04 | Outpatient (OUT) | payer OTHER, SELFPAY ==
--- OUTSIDE RECORDS SUMMARY | 2024-12-25 13:00 | XMS_ITS | Continuity of Care Document ---
Author Organization [facility] Address [address] [place] [address] Phone Care Team Providers Care Software Applications Designer Name Role Phone Joe Barksdale DO Primary Care Provider [phone] Lorena Rico APRN Attending Provider Care Teams Patient Care Team Team Status: Active Member Role Status Dates Joe Barksdale DO Primary Care Provider Active Visit Care Team Team Status: Inactive Member Role Status Dates Joe Barksdale DO Primary Care Provider Active S tart: December 08, 2024 End: December 08, 2024 Lorena Rico APRN [facility] Attending Provider Active Start: December 08, 2024 End: December 08, 2024 Chief Complaint and Reason for Visit Chief Complaint Admit Date H mo f/u Asthma December 08, 2024 9:32 am Reason for Visit Admit Date Asthma December 08, 2024 9:32 am 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 December 08, 2024 9:32am GERD (gastroesophageal reflux disease) J trista 2024 [...] Active Acute cough Unknown Active 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 Unknown Active [...] Unknown Active Other chronic pain Unknown Active COPD (chronic obstructive pu lmonary disease) with emphysema Unknown Active Wheezing Unknown Active Abnormal CT scan, chest Unknown Active CT c hest 08/05/24 done at [facility] Asymmetrical sensorineural h earing loss [...] (Advair Diskus) 250-50 mcg/dose blister with device Discont inued 1 INH INHALA TION Q12H 3 October 29, 2023 1:18pm December 18, 2024 8:30a m Cyclobenzap rine 10 mg tablet Discont inued [...] bedtime December 14, 2023 10:30a m Augus t 2023 11:30 am TAKE 1 TABLET AT BEDTIME Cyclobenzap rine 10 mg tablet Discont inued 10 MG PO Daily at bedtime January 08, 2024 11:29a m [facility] 2023 9:14a m TAKE 1 TABLET AT BEDTIME Amoxicillin -Pot Clavulanate 875-125 mg tablet Discont inued 1 TAB PO Twice daily 09 03January 08, 2024 12:00a m [facility] 2023 12:37 pm with food Meloxicam 15 mg tablet Discont inued 0 .ROUTE .COMPLEX 90 January 14, 2024 10:16a m 2024 1:23p m TAKE 1 TABLET DAILY Metformin 500 mg tablet extended release 24 hr Discont inued 500 MG PO .[facility] January 14, 2024 10:36a m Augus t 2023 10:42 am 500 mg orally take 2 (500 mg) tabs twice a day with meals; Metformin 500 mg tablet extended release 24 hr Discont inued 0 .ROUTE .COMPLEX 360 January 14, 2024 10:41a m [facility] slim 2023 9:14a m TAKE 2 TABLETS TWICE A DAY WITH MEALS Metformin 500 mg tablet extended release 24 hr Discont inued 0 .ROUTE .COMPLEX 360 [facility] er 2023 9:13am ry 2024 1:23p m TAKE 2 TABLETS TWICE A DAY WITH MEALS Losartan 50 mg tablet Discont inued 50 MG PO Daily [facility] 2023 9:14am September 08, 2024 10:07 am Levothyroxi ne 200 mcg tablet Discont inued 200 MCG PO Daily [facility] er 2023 9:14am August 18, 2024 10:58 am take first thing in the morning on an empty stomach, do not eat or drink for 30-45 min after taking Cyclobenzap rine 10 mg tablet Discont inued 10 MG PO Daily at bedtime 90 [facility] 2023 9:14am August 18, 2024 11:47 am TAKE 1 TABLET AT BEDTIME Montelukast (Singulair) 10 mg tablet Active 10 MG PO Daily at bedtime 90 [facility] 2023 9:15am Complies with drug therapy Esomeprazol e Magnesium (Nexium) 40 mg capsule,del ayed release(DR/ EC) Active 40 MG PO Daily [facility] 2023 9:16am Complies with drug therapy Prednisone 20 mg tablet Discont inued 0 PO daily 18 [facility] 2023 1:00am [facility] 20[facility] 1:16p m 3 tablets by mouth [...] MCG daily Cyclobenzap rine 10 mg tablet Discont inued 10 MG PO Daily at bedtime August 18, 2024 11:46a m December 16, 2024 9:15a m TAKE 1 TABLET AT BEDTIME Cetirizine (Zyrtec) 10 mg tablet Active 10 MG PO Daily August 18, 2024 11:46a m Complies with drug therapy Prednisone 20 mg tablet Discont inued 0 PO .with food or milk 05 02September 23, 2024 10:19a m October 24, 2024 10:08 am take 3 tablets a day x3 days, 2 tabs a day x3 days and then 1 tab a day x3 days orally WITH FOOD OR MILK; Cyclobenzap rine 10 mg tablet Active 10 MG PO Daily at bedtime 5 December 16, 2024 9:14am TAKE 1 TABLET AT BEDTIME Unknown Fluticasone Propion-Fabio meterol (Advair Diskus) 250-50 mcg/dose blister with device Active 1 INH INHALA TION Q12H 3 90 December 18, 2024 8:30am Unknown Cyclobenzap rine 10 mg Tablet Discont inued [...] PO Daily September 14, 2017 12:00a m Dece slim 2023 9:16a m Mometasone (Nasonex) 50 mcg/actuati on [place],Non-A erosol Discont inued 2 SPRAY INTRAN CLARISSE [...] Daily August 28, 2023 12:00a m Augus 2023 10:17 am TAKE 1 TABLET DAILY; [...] food or milk 18 9 2024 1:00am 2024 11:36 am take 3 tablets a [...] Event Date Not Given Reason Dose Number Fondant Machine Operator Lot Number Vaccine Information Statement (VIS) Detail Administration Location COVID-19 mRNA Comirmurtaza (Shipu) September 02, 2020 [id number] [facility] COVID-19 mRNA, Comirnaty (Pfizer) September 23, 2020 [id number] [facility] Tetanus, Diphtheria, Pertussis (Tdap) December 16, 2011 Tetanus, Diphtheria, Pertussis (Tdap) December 12, 2024 Trivalent Influenza Vaccine March 15, 2021 Patient Refused Vital Signs Vital Reading Result Reference Range Collection Date/Time Height 65 [in_i] December 08, 2024 9:37am Weight 127.45 kg December 08, 2024 9:37am Heart Rate 85 /min 60-100 December 08, 2024 9:37am Respiratory rate 20 /min 12-December 08, 2024 9:37am Oxygen saturation by Pulse oximetry 96 % 95-10 0 December 08, 2024 9:37am BP Systolic 154 mm[Hg] 100-140 December 08, 2024 9:40am BP Diastolic 95 mm[Hg] 60-100 December 08, 2024 9:40am BMI (Body Mass Index) 46.7 kg/m2 November 192024 9:37am Advance Directives Advance Directive Response Recorded Date/ Time Advance Directives No September 14 9:20pm Insurance Providers Guarantor Laura [place] Address [address] [place] [address] Contact Info. 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 [facility] Recent Diagnosis Onset Date Admit Date Asthma Unknown December 08, 2024 9:32am COPD (chronic obstructive pu lmonary disease) with emphysema Unknown December 08, 2024 9:32am GERD (gastroesophageal reflux disease) Unknown December 08, 2024 9:32am Seasonal allergies Unknown December 08 9:32am Assessments Diagnosis Onset Date Resolution Status Admit Date Asthma acute December 08 9:32am COPD (chronic obstructive pulmonary disease) with emphysema acute December 08, 2024 9:32am GERD (gastroesophageal reflu x disease) acute December 08, 2024 9:32am Seasonal allergies acute November 192024 9:32am Plan of Treatment Author Lorena Rico [facility] Authored December 08, 2024 10:3 2am Patient's mild COPD/asthma c omponent and noted emphysematous bulla on CAT scan currently treated with Advair. Patient's reports wheezing and dyspnea despite use of Advair as prescribed. The option of adding Spiriva Respimat 1.25 versus Trelegy daily was discussed. Patient wishes to trial Trelegy 100/62.5/25 for the next 4 weeks. Samples given to patient. Patient was instructed to not take Advair while taking Trelegy. She was reminded to rinse/gargle after each use to help prevent thrush. She will continue on current treatment for seasonal allergies and GERD. Results of autoimmune blood work were discussed with patient. Alpha ID cheek swab for screening in the alpha-1 antitrypsin deficiency was negative. Patient was advised on role of uncontrolled GERD and rhinitis in poorly controlled lower airways inflammation. Patient was encouraged to do daily physical activity as able as well as work on weight loss. All questions were answered. The patient was advised to call us if there are any new respiratory issues or concerns. Will follow-up in March 2025 as previously scheduled.Patient states no refills are required at this time. Future Tests Future scheduled test information is [...]
--- OUTSIDE RECORDS SUMMARY | 2025-01-06 12:08 | XMS_ITS | Encounter Summary ---
Author Organization [facility] Address [address] [id number] Care Team Providers Care Dynamite Reclaimer Name Role Phone Joe Barksdale DO Primary Care Provider [phone] Source Comments In the event this information is protected by the Federal Confidentiality of Alcohol and Drug AbusePatient Records regulations: The Federal rules restrict any use of the information to criminally investigate or prosecute any alcohol or drug abuse patient.[facility] Encounter Details Date Type Department Care Team (Late st Contact Info) Description 06/23/2021 Patient Msg Endocrinology [address] [phone] Neto Ansari MD [address] [phone] results. Social History Tobacco Use Types Packs/Day [...] N ot on file 04/26/2020 Data from: https://www.neighborhoodatlas.[facility].edu/. Last address used for calculation Not [...] on filedocumented in this encounter Care Teams Dynamite Reclaimer Relationship Specialty Start Date End Date Joe Barksdale DO [address] [place] [address] PCP - General Family Medicine 08/01/18 documented as of this encounter
--- OUTSIDE RECORDS SUMMARY | 2025-01-06 12:08 | XMS_ITS | Encounter Summary ---
Author Organization [facility] Address [address] [place] [address] Care Team Providers Care Box Liner Name Role Phone Joe Barksdale MD Primary Care Provider [phone] Encounter Details Date Type Department Care Team (Late st Contact Info) Description 10/04/2022 Abstract [facility] [address] [facility] [address] [place] [address] Livia Kirk, HAILEY [address] [facility] [address] [place] [address] Social History Tobacco Use Types Packs/Day Years [...] on filedocumented in this encounter Care Teams Box Liner Relationship Specialty Start Date End Date Joe Barksdale MD [address] [place] [address] PCP - General Family Medicine 10/18/22 documented as of this encounter
--- OUTSIDE RECORDS SUMMARY | 2025-01-06 12:08 | XMS_ITS | Encounter Summary ---
Author Organization [facility] Address [address] [place] [address] Care Team Providers Care Bottom Painter Name Role Phone Jeff Jon MD Primary Care Provider [phone] Encounter Details Date Type Department Care Team (Late st Contact Info) Description 09/04/2023 Clinisync Result Encounter [facility] External Department Unsolicited Jennie Guillermo MD [address] [facility] [address] [phone] Social History Tobacco Use Types Packs/Day Years [...] PM EDT Narrative 09/04/2023 4:54 PM EDT [address] [address] [address] Scan Report Signed Patient: CANELO SINGH MR#: [id number] : 1965 Acct:[id number] Age/Sex: 57 / F ADM Date: 09/04/23 Loc: CT Attending Dr: Jennie Guillermo M.D. Ordering Physician: Jennie Guillermo M.D. Date of Service: 09/04/23 Procedure(s): CT int auditory canals w con Accession Number(s): [id number] cc: JEFF JON [place] [address] Patient Name: CANELO SINGH MRN: [id number] date: 1965 Sex: F Assigned Patient Location: CT Current Patient Location: CT Accession/Order Number: [id number] Exam Date: 09/04/2023 13:20 Report Date: 09/04/2023 [...] M.D. Signed By: 09/04/231653 DD/ 51 TD/TT: Fishing Vessel Captain: Procedure Note Radiology, Radiologist, MD - 09/04/2023 [place] [address] CT Scan Report Signed Patient: CANELO SINGH LMR#: [id number] : 1965Acct:[id number] Age/Sex: 57 / FADM Date: 09/04/23 Loc: CT Attending Dr: Jennie Guillermo M.D. Ordering Physician: Jennie Guillermo M.D. Date of Service: 09/04/23 Procedure(s): CT int auditory canals w con Accession Number(s): [id number] cc: JEFF JON [place] [address] Patient Name: CANELO SINGH MRN: [id number] date: 1965 Sex: F Assigned Patient Location: CT Current Patient Location: CT Accession/Order Number: [id number] Exam Date: 09/04/2023 13:20 Report Date: 09/04/2023 [...] VEE M.D. Signed By:09/04/231653 DD/ 51 TD/TT: Fishing Vessel Captain: us Jennie Guillermo MD IMG CT PROCEDURES Final Resul t documented in this encounter Visit Diagnoses Not on filedocumented in this encounter Care Teams Bottom Painter Relationship Specialty Start Date End Date Jeff Jon MD [address] [place] [address] [place] [address] PCP - General Family Medicine 10/18/22 documented as of this encounter
--- OUTSIDE RECORDS SUMMARY | 2025-01-06 12:08 | XMS_ITS | Clinical Summary ---
Author Organization [facility] Address [address] [place] [address] Care Team Providers Care Case Fitter Name Role Phone Joe Barksdale Lilli BETH Primary Care Provider [phone] Allergies Active Allergy Reactions Criticality Noted Date [...] 9 Active mometasone furoate(NASONEX 50 MCG/ACTUATION SPRAY) [place] twice in each nostril once daily. 0 [...] History Medical History Relation Comments Hypertension Brother PR Brother Diabetes Father Ischemic Heart Disease Father [...] N ot on file 06/07/2022 Data from: https://www.neighborhoodatlas.[facility].edu/. Last address used for calculation [address] [...] COMP METABOLIC PANEL (10/07/2021 2:42 PM EDT) [facility] Protein, Total 7.3 6.3 - 8.0 g/dL 10/07/2021 8:04 PM EDT [facility] Albumin 4.8 3.9 - 4.9 g/dL 10/07/2021 8:04 PM EDT [facility] Calcium, Total 10.3(H) 8.5 - 10.2 mg/dL 10/07/2021 8:04 PM EDT [facility] Bilirubin, Total 0.5 0.2 - 1.3 mg/dL 10/07/2021 8:04 PM EDT [facility] Alkaline Phosphatase 72 34 - 123 U/L 10/07/2021 8:04 PM EDT [facility] AST 17 13 - 35 U/L 10/07/2021 8:04 PM EDT [facility] ALT 24 7 - 38 U/L 10/07/2021 8:04 PM T [facility] Glucose 124(H) 74 - 99 mg/dL 10/07/2021 8:04 PM T [facility] Comment: The [place] Diabetes Association (ADA) provides guidance for cutoff [...] Standards of Medical Care in Diabetes 2016, [place] Diabetes Association. Diabetes Care. 2016.39(Suppl 1). BUN 18 7 - 21 mg/dL 10/07/2021 8:04 PM T [facility] Creatinine 0.70 0.58 - 0.96 mg/dL 10/07/2021 8:04 PM T [facility] Sodium 139 136 - 144 mmol/L 10/07/2021 8:04 PM T [facility] Potassium 4.1 3.7 - 5.1 mmol/L 10/07/2021 8:04 PM EDT [facility] Chloride 100 97 - 105 mmol/L 10/07/2021 8:04 PM EDT [facility] CO2 28 22 - 30 mmol/L 10/07/2021 8:04 PM EDT [facility] Anion Gap 11 9 - 18 mmol/L 10/07/2021 8:04 PM EDT [facility] Estimated Glomerular Filtration Rate 103 >=60 mL/min/1. 73m 10/07/2021 8:04 PM EDT [facility] Comment:Estimated Glomerular Filtration Rate (eGFR) [...] us Neto Ansari MD LABORATORY Final Result [facility] [address] [place] [address], * HEP REMOTE PANEL BL (05/16/2007 2:25 PM EST) Hep B Core Ab, Total Negative NEGAT [facility] Hep C Antibody IA Negative NEGAT [facility] HBsAg Negative NEGAT [facility] Hep B Surface Ab, Qual Negative NEGAT [facility] Comment: A negative Hepatitis B Surface Antibody is indicative of: 1)no prior exposure to HBV, 2)lack of antibody response to an acute or chronic HBV infection, 3)lack of antibody response to HBV vaccination, or, 4)loss of immunity that followed either vaccination or infection. Blood specimen (specimen) BLOOD SPECIMEN / Unknown 05/16/2007 2:25 PM EST us Leena Seymour MD LABORATORY Final Result [facility] [address] [place] [address] from Last 3 Months or Most Recently Relevant to Health Maintenance Insurance [employer] Care Teams Case Fitter Relationship Specialty Start Date End Date Joe Barksdale DO [address] [place] [address] PCP - General Family Medicine 08/01/18
--- OUTSIDE RECORDS SUMMARY | 2025-01-06 12:08 | XMS_ITS | Encounter Summary ---
Author Organization [facility] Address [address] [place] [address] Care Team Providers Care Penal Officer Name Role Phone Joe Barksdale MD Primary Care Provider [phone] Encounter Details Date Type Department Care Team (Late st Contact Info) Description 10/04/2022 Abstract [facility] [address] [facility] [address] [place] [address] Livia Kirk, HAILEY [address] [facility] [address] [place] [address] Social History Tobacco Use Types Packs/Day Years [...] on filedocumented in this encounter Care Teams Penal Officer Relationship Specialty Start Date End Date Joe Barksdale MD [address] [place] [address] PCP - General Family Medicine 10/18/22 documented as of this encounter
--- OUTSIDE RECORDS SUMMARY | 2025-01-06 12:08 | XMS_ITS | Encounter Summary ---
Author Organization [facility] Address [address] [place] [address] Care Team Providers Care Senior Market Research Analyst Name Role Phone Joe Barksdale MD Primary Care Provider [phone] Encounter Details Date Type Department Care Team (Late st Contact Info) Description 09/24/2023 Orders Only [facility] [place] [facility] [address] [place] [address] Livia Kirk, HAILEY 112 [facility] [address] [place] [address] Asymmetric SNHL (sensorineural hearing loss); Right-sided tinnitus; [...] right documented in this encounter Care Teams Senior Market Research Analyst Relationship Specialty Start Date End Date Joe Barksdale MD [address] [place] [id number] PCP - General Family Medicine 10/18/22 documented as of this encounter
--- OUTSIDE RECORDS SUMMARY | 2025-01-06 12:08 | XMS_ITS | Encounter Summary ---
Author Organization [facility] Address [address] [place] [address] Care Team Providers Care Computer Builder Name Role Phone Jose Luis Rodriguez Primary Care Provider [phone] Joe Barksdael DO Primary Care Provider [phone] Source Comments In the event this information is protected by the Federal Confidentiality of Alcohol and Drug AbusePatient Records regulations: The Federal rules restrict any use of the information to criminally investigate or prosecute any alcohol or drug abuse patient.[facility] Encounter Details Date Type Department Care Team (Late st Contact Info) Description 08/02/2016 Patient Msg Medical Records [address] [place] [address] Provider, [facility] Important notice: provider change for [...] on filedocumented in this encounter Care Teams Computer Builder Relationship Specialty Start Date End Date Jose Luis Rodriguez [address] [place] [address] PCP - General 03/16/08 07/31/18 Joe Barksdale DO [address] [place] [address] PCP - General Family Medicine 08/01/18 documented as of this encounter
--- OUTSIDE RECORDS SUMMARY | 2025-01-06 12:08 | XMS_ITS | Encounter Summary ---
Author Organization [facility] Address [address] [place] [address] Care Team Providers Care Glove Tagger Name Role Phone Jose Luis Rodriguez Primary Care Provider [phone] Joe Barksdale DO Primary Care Provider [phone] Source Comments In the event this information is protected by the Federal Confidentiality of Alcohol and Drug AbusePatient Records regulations: The Federal rules restrict any use of the information to criminally investigate or prosecute any alcohol or drug abuse patient.[facility] Encounter Details Date Type Department Care Team (Late st Contact Info) Description 11/13/2016 Patient Msg Functional Medicine [address] [address] [place] [address] [place] [address] Appointment Cancellation Request Social History Tobacco Use [...] filedocumented in this encounter Care Teams Glove Tagger Relationship Specialty Start Date End Date Jennifer Jose Luis Saldivar [address] [place] [address] PCP - General 03/16/08 07/31/18 Joe Barksdale DO [address] [place] [address] PCP - General Family Medicine 08/01/18 documented as of this encounter
--- OUTSIDE RECORDS SUMMARY | 2025-01-06 12:08 | XMS_ITS | Clinical Summary ---
Author Organization [facility] Address [address] [place] [address] Care Team Providers Care Solar Mechanical Engineer Name Role Phone Joe Barksdale MD Primary Care Provider [phone] Allergies Active Allergy Reactions Criticality Noted Date [...] Hypertension 10/11/2023 Hypothyroidism 10/11/2023 Osteoarthritis 10/11/2023 Other ad terminal makeup operator (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 Palpitation 10/11/2023 Polyarthralgia 10/11/2023 [...] Vaccine (#1) 2025 Insurance [employer] Care Teams Solar Mechanical Engineer Relationship Specialty Start Date End Date Joe Barksdale MD [address] [place] [address] PCP - General Family Medicine 10/18/22
--- OUTSIDE RECORDS SUMMARY | 2025-01-06 12:08 | XMS_ITS | Encounter Summary ---
Author Organization [facility] Address [address] [place] [address] Care Team Providers Care Training Project Manager Name Role Phone Jose Luis Rodriguez Primary Care Provider [phone] Joe Barksdale DO Primary Care Provider [phone] Source Comments In the event this information is protected by the Federal Confidentiality of Alcohol and Drug AbusePatient Records regulations: The Federal rules restrict any use of the information to criminally investigate or prosecute any alcohol or drug abuse patient.[facility] Encounter Details Date Type Department Care Team (Late st Contact Info) Description 11/13/2016 Patient Msg Functional Medicine [address] [address] [place] [address] [place] [address] Appointment Cancellation Request Social History Tobacco Use [...] on filedocumented in this encounter Care Teams Training Project Manager Relationship Specialty Start Date End Date Jennifer Jose Luis Saldivar [address] [place] [address] PCP - General 03/16/08 07/31/18 Joe Barksdale DO [address] [place] [address] PCP - General Family Medicine 08/01/18 documented as of this encounter
--- OUTSIDE RECORDS SUMMARY | 2025-01-06 12:08 | XMS_ITS | Encounter Summary ---
Author Organization [facility] Address [address] [place] [address] Care Team Providers Care Project Production Engineer Name Role Phone Jeff Jon MD Primary Care Provider Encounter Details Date Type Department Care Team (Late st Contact Info) Description 10/09/2023 Clinisync Result Encounter [facility] External Department Unsolicited Marianela Guillermo MD [address] [facility] [address] [place] [address] Social History Tobacco Use Types Packs/Day Years [...] EDT Narrative 10/09/2023 9:18 PM EDT The [address] [address] Magnetic Resonance Report Signed Patient: CANELO SINGH MR#: [id number] : 1965 Acct:[id number] Age/Sex: 58 / F ADM Date: 10/09/23 Loc: MRI Attending Dr: Marianela Guillermo M.D. Ordering Physician: Marianela Guillermo M.D. Date of Service: 10/09/23 Procedure(s): MR head/brain wo/w con Accession Number(s): [id number] cc: JEFF JON ; Marianela Guillermo M.D. The [address] [address] Patient Name: CANELO SINGH MRN: [id number] date: 1965 Sex: F Assigned Patient Location: MRI Current Patient Location: MRI Accession/Order Number: [id number] Exam Date: 10/09/2023 12:50 Report Date: 10/09/2023 [...] M.D. Signed By: 10/09/232117 DD/ 14 TD/TT: Mental Health Assistant: Procedure Note Radiology, Radiologist, MD - 10/09/2023 [place] [address] Magnetic Resonance Report Signed Patient: CANELO SINGH LMR#: [id number] : 1965Acct:[id number] Age/Sex: 58 / FADM Date: 10/09/23 Loc: MRI Attending Dr: Marianela Guillermo M.D. Ordering Physician: Marianela Guillermo M.D. Date of Service: 10/09/23 Procedure(s): MR head/brain wo/w con Accession Number(s): [id number] cc: JEFF JON ; Marianela Guillermo M.D. The [place] [id number] Patient Name: CANELO SINGH MRN: [id number] date: 1965 Sex: F Assigned Patient Location: MRI Current Patient Location: MRI Accession/Order Number: [id number] Exam Date: 10/09/2023 12:50 Report Date: 10/09/2023 [...] Patel M.D. Signed By:10/09/232117 DD/ 14 TD/TT: Mental Health Assistant: us Marianela Guillermo MD IMG XR PROCEDURES Final Resul t documented in this encounter Visit Diagnoses Not on filedocumented in this encounter Care Teams Project Production Engineer Relationship Specialty Start Date End Date Jeff Jon MD [address] [place] [address] [address] [place] [id number] PCP - General Family Medicine 10/18/22 documented as of this encounter
--- OUTSIDE RECORDS SUMMARY | 2025-01-06 12:08 | XMS_ITS | Clinical Summary ---
Author Organization [facility] Address [address] [place] [address] Phone Care Team Providers Care Project Designer Name Role Phone Joe Barksdale DO Primary Care Provider [phone] Social History Tobacco Use Types Packs/Day Years [...] age to complete this topic Care Teams Project Designer Relationship Specialty Start Date End Date Joe Barksdale DO PCP - General 09/27/22
--- OUTSIDE RECORDS SUMMARY | 2025-01-06 12:08 | XMS_ITS | Encounter Summary ---
Author Organization [facility] Address [address] [place] [address] Care Team Providers Care Mortgage Consultant Name Role Phone Joe Barksdale MD Primary Care Provider [phone] Encounter Details Date Type Department Care Team (Late st Contact Info) Description 10/04/2022 Abstract [facility] [address] [facility] [address] [place] [address] Livia Kirk, HAILEY 112 [facility] [address] [place] [address] Social History Tobacco Use Types Packs/Day Years [...] on filedocumented in this encounter Care Teams Mortgage Consultant Relationship Specialty Start Date End Date Joe Barksdale MD [address] [place] [address] PCP - General Family Medicine 10/18/22 documented as of this encounter
--- OUTSIDE RECORDS SUMMARY | 2025-01-06 12:08 | XMS_ITS | Encounter Summary ---
Author Organization [facility] Address [address] [place] [address] Care Team Providers Care Physician Non Invasive Cardiologist Name Role Phone Joe Barksdale MD Primary Care Provider [phone] Encounter Details Date Type Department Care Team (Late st Contact Info) Description 08/14/2022 Abstract [facility] [address] [place] [address] Svetlana Allison, [facility] [address] [place] [address] Social History Tobacco Use Types Packs/Day Years [...] on filedocumented in this encounter Care Teams Physician Non Invasive Cardiologist Relationship Specialty Start Date End Date Joe Barksdale MD [address] [place] [address] [place] [address] PCP - General Family Medicine 10/18/22 documented as of this encounter
--- OUTSIDE RECORDS SUMMARY | 2025-01-06 12:08 | XMS_ITS | Clinical Summary ---
Author Organization [facility] Address [address] [facility], [address] [place] [address] Care Team Providers Care Memorial Mason Name Role Phone Joe Barksdale DO Primary [...] Not on file Insurance [employer] Care Teams Memorial Mason Relationship Specialty Start Date End Date Joe Barksdale DO PCP - General Family Medicine 09/17/18
[2025-01-06 12:53] LABS: Hematocrit 40.9 % (36.0-48.0); Hemoglobin 13.7 g/dL (12.0-16.0); Immature Granulocytes Abs Auto 0.02 10^3/uL (0.00-0.03); Immature Granulocytes Pct Auto 0.3 % (0.0-0.5); Lymphocytes Absolute Auto 2.3 10^3/uL (1.2-3.8); Mean Corpuscular HGB Conc 33.5 g/dL (29.9-35.2); Mean Corpuscular Hemoglobin 30.9 pg (26.7-34.0); Mean Corpuscular Volume 92.3 fL (81.0-99.0); Platelet Count 358 10^3/uL (150-450); Red Blood Count 4.43 10^6/uL (4.20-5.40); White Blood Count 7.9 10^3/uL (4.0-11.0)
[2025-01-06 13:47] LABS: Anion Gap 9.4; Blood Urea Nitrogen 19.0 mg/dL (7.0-18.0); Calcium 9.2 mg/dL (8.5-10.1); Carbon Dioxide 30.0 mmol/L (21.0-32.0); Chloride 104 mmol/L (98-107); Estimated GFR (African America >60 (>=60 mL/min/1.73m^2); Estimated GFR (Non-African Ame >60 (>=60 mL/min/1.73m^2); Glucose 134 mg/dL (74-106); Potassium 4.4 mmol/L (3.5-5.1); Sodium 139 mmol/L (136-145)
--- OUTSIDE RECORDS SUMMARY | 2025-01-06 14:50 | XMS_ITS | CCD ---
Author Organization [facility] Care Team Providers Care Maitre D Name Role Phone JEFF JON Primary Care Unavailable ELLE DODD Referring Unavailable Jeff Jon DO Primary Care Provider [phone] Carlos Terrazas Unavailable Jeff Jon Unavailable Vandana Jordan Unavailable Carl Valdivia Unavailable Lorena Rico Unavailable Jeff Jon DO Primary Care Provider [phone] JEFF JON Primary Care Unavailable LEENA SEYMOUR Attending Unavailable JEFF JON Primary Care Unavailable SKUGOR, ASAD Referring Unavailable JEFF JON Primary Care Unavailable ANILA JIMENEZ Attending Unavailable DANG, ASAD Attending Unavailable JEFF JON Referring Unavailable JEFF JON Primary Care Unavailable JEFF JON Primary Care Unavailable SKUGOR, ASAD Referring Unavailable SKUGWHIT, ASAD Attending Unavailable JEFF JON Primary Care Unavailable SKUGOR, ASAD Referring Unavailable Lacie Manuel Unavailable DONTRELL, DR AGUILAR Consulting Unavailable DONTRELL, DR AGUILAR Attending Unavailable GIRCASSI, DR AGUILAR Admitting Unavailable DONTRELL, DR AGUILAR Primary Care Unavailable DONTRELL, DR AGUILAR Consulting Unavailable DONTRELL, DR AGUILAR Primary Care Unavailable DONTRELL, DR AGUILAR Attending Unavailable DONTRELL, DR AGUILAR Admitting Unavailable FRANCISCO, DR JEFF Colvin Consulting Unavailable DONTRELL, DR AGUILAR Primary Care Unavailable GIRCASSI, DR AGUILAR Attending Unavailable GIRCASSI, DR AGUILAR Admitting Unavailable ANASTASIA WADE Consulting Unavailable DONTRELL, DR AGUILAR Primary Care Unavailable HILARIA ., DR HERZOG Attending Unavailable HILARIA ., DR HERZOG Admitting Unavailable DIAB ., MARCELL Admitting Unavailable TROACOSTA ROWELLOLAMARIA INES Consulting Unavailable DONTRELL, DR AGUILAR Primary Care Unavailable DIAB ., MARCELL Attending Unavailable ANASTASIA WADE Consulting Unavailable DIAB ., MARCELL Consulting Unavailable GIRCASSI, DR AGUILAR Primary Care Unavailable JEROD ., LAURENCE Attending Unavailable JEROD ., LAURENCE Admitting Unavailable WEST, DR JEFF Colvin Consulting Unavailable JEROD ., LAURENCE Consulting Unavailable GIRCASSI, DR AGUILAR Primary Care Unavailable TIMMIS, JENNIE Consulting Unavailable TIMMIS, JENNIE Attending Unavailable TIMMIS, JENNIE Admitting Unavailable LAYTON, STEPHENIE Consulting Unavailable NEFCY, DURGA Consulting Unavailable GIRVIN, DR AGUILAR Primary Care Unavailable TIMMIS, JENNIE Consulting Unavailable TIMMIS, JENNIE Attending Unavailable TIMMIS, JENNIE Admitting Unavailable GIRVIN, DR AGUILAR Consulting Unavailable GIRVIN, DR AGUILAR Attending Unavailable GIRCASSI, DR AGUILAR Primary Care Unavailable GIRCASSI, DR AGUILAR Admitting Unavailable Jeff Jon Unavailable Prieto, Dr. Ren Referring Unavaila ble Dontrell, Dr. Jeff Coleman Primary Care Unavaila ble Prieto, Dr. Ren Attending Unavaila ble Gircassi, Dr. Jeff Coleman Primary Care Unavaila ble Girvin, Dr. Jeff Coleman Attending Unavaila ble Gircassi, Dr. Jeff Coleman Referring Unavaila ble Gircassi, Dr. Jeff Coleman Attending Unavaila Jeff Lopez Primary Care Physician DO Casper Nguyen Admitting Unavailabl e Casper Nguyen Attending Unavailable Judith, Sharon D Referring Unavailable TIMMIS, JENNIE H Attending Unavailable JEFF JON Referring Unavailable TIMMIS, JENNIE H Attending Unavailable JUDITH, SHARON D Referring Unavailable HILLS, SHARON D Attending Unavailable SVETLANA SINGH Attending Unavailable TIMMIS, JENNIE H Attending Unavailable HILLS, SHARON D Referring Unavailable HILLS, SHARON D Attending Unavailable TIMMIS, JENNIE H Attending Unavailable DO Jeff Jon Primary Care Provider MD Logan Brown Attending Provider Dontrell BETH, Jeff Coleman Primary Care Unavailab le DeVaul JOURNALISTS AND OTHER WRITERS-PERSONAL CARE WORKER, Cass Zavaleta Attending Unav ailable Dontrell BETH, Jeff Coleman Primary Care Unavailab le DeVaul JOURNALISTS AND OTHER WRITERS-PERSONAL CARE WORKER, Cass Zavaleta Attending Unav ailable Dontrell BETH, Jeff Coleman Primary Care Unavailab le DeVaul [employer]S AND OTHER WRITERS-PERSONAL CARE WORKER, Cass Zavaleta Attending Unav ailable Jeff Jon DO Primary Care Unavailab Librado Lugo MD Attending Unavaila ble Jeff Jon DO Primary Care Provider Ly Carol BETH Attending Provider Jeff Jon DO Primary Care Provider Jeff Jon DO Attending Provider Lorena Rico APRN Attending Provider Jeff Jon Admitting Unavailable Jeff Jon Attending Unavailable Stephanie, Logan Crocker Admitting Unavailable Logan Brown S Attending Unavailable Jeff Jon Primary Care Unavailable Ly, Carol L Admitting Unavailable Ly, Carol Rogers Attending Unavailable Jeff Jon Primary Care Unavailable Ly, Carol L Admitting Unavailable Ly, Carol Rogers Attending Unavailable Jeff Jon Primary Care Unavailable Jeff Jon DO Primary Care Provider Jeff Jon DO Attending Provider Lorena Rico APRN Attending Provider NEO ESPINO Attending Unavailable NEO ESPINO Attending Unavailable Allergies Allergy Classification Reported Allergen(s) Allergy Type Date of Onset Reaction(s) Facility Macrolides (antibiotic) (1 source) Clarithromycin Drug Allergy 12-19-19 24 diarrhea [facility] Quinolones (antibiotic) (2 sources) levoFLOXacin Drug Allergy 12-19-19 24 Abdominal Pain, itches/pain, Abdominal Pain [facility] (6 sources) Cefuroxime; Translations: [CEFUROXIME AXETIL] Drug Allergy 05-16-20 07 Itching [facility] (20 sources) Clarithromycin; Translations: [CLARITHROMYCIN] Drug Allergy 05-16-20 07 Itching [facility] (15 sources) Fluconazole; Translations: [FLUCONAZOLE] Drug Allergy 06-16-19 22 Itching [facility] (20 sources) gatifloxacin; Translations: [GATIFLOXACIN] Drug Allergy 05-16-20 07 Itching [facility] (20 sources) levoFLOXacin; Translations: [LEVOFLOXACIN] Drug Allergy 05-16-20 07 Itching [facility] (17 sources) LORazepam; Translations: [LORAZEPAM] Drug Allergy 06-16-19 Other: See Comments [facility] (20 sources) metFORMIN; Translations: [METFORMIN] Drug Allergy 06-16-19 Other: See Comments [facility] (20 sources) Fluconazole Drug Allergy itching [facility] Other (20 sources) gatifloxacin; Translations: [Tequin] Drug Allergy 05-17-20 13 Unknown [facility] (20 sources) levoFLOXacin; Translations: [Levaquin] Drug Allergy 05-17-20 13 itches/pain [facility] (20 sources) LORazepam Drug Allergy made wired /unable to sleep [facility] Other (3 sources) metFORMIN Drug Allergy headaches [facility] Other (2 sources) Clarithromycin; Translations: [Biaxin] Drug Allergy 09-05-19 16 [facility] (1 source) Pentamidine Drug Allergy [facility] (2 sources) Percocet Tablets; Translations: [Percocet Tablets] Propensity to adverse reactions to drug nausea and vomiting [facility] (2 sources) Vicodin Tablets; Translations: [Vicodin Tablets] Propensity to adverse reactions to drug nausea and vomiting [facility] (1 source) Clarithromycin Drug Allergy 11-28-19 [facility] Repository (1 source) gatifloxacin Drug Allergy 11-28-19 [facility] (1 source) levoFLOXacin Drug Allergy 11-28-19 [facility] Rep[facility] (1 source) Cefuroxime; Translations: [CEFUROXIME] Drug Allergy 05-16-20 [facility] Repository Medications Current Medications Medication Drug [...] every 12 hrs for 90 days Active [id number] 200 actuat albuterol 0.09 mg/actuat metered dose inhaler (20 sources) beta2-Adrenergic Agonist Start: 03-26-2024 End: 03-26-2024 Albuterol Sulfate 90 mcg/actuation HFA aerosol inhaler Active 2 INH INHALATION Every 6 hours as needed for shortness of breath or wheezing 8.5 March 26, 2024 1:03pm Complies with drug therapy Start: 08-28-2023 take 3 mL by inhalat ion every six hours as needed Albuterol Sulfate 2.5 mg /3 mL (0.083 %) solution for nebulization Active 2.5 MG INHALATION Every 6 hours as needed for shortness of breath or wheezing August 28, 2023 12:00am 3 ml as needed Inhalation every 6 hrs; Note: Source Status: Continueprn; Provider: Jacky Carrillo Complies with drug therapy Start: 08-28-2023 End: 03-26-2024 Albuterol Sulfate (Proair Hf a) 90 mcg/actuation HFA aerosol inhaler Discontinued INHALATION August 28, 2023 12:00am March 26, 2024 1:03pm [employer] inhalations Inhalation q4 hrs prn; Note: [...] day(s), # 30 tab(s), Refills(s) 2, Pharmacy: [facility]/pharmacy #[id number], 166, cm, 05/10/23 14:36:00 EST, [...] (20 sources) Azole Antifungal, Corticosteroid Start: 08-28-2023 End: 07-16-2024 Clotrimazole-Betam ethasone 1-0.05 % cream Active 1 APPLIC TOPICAL Twice daily as needed for as directed July 16, 2024 11:35am [employer] application Externally Twice a day; Note: Source Status: Takingprn; Refills: 3; Qty: 135 gm; Provider: Dontrell Reeder Complies with drug therapy Start: 04-10-2019 Clotrimazole-B etamethasone 1-0.05 % 1 application Externally Twice a day for 90 days prn Mar, Active Centrum (1 source) Start: 02-22-2011 Centrum Oral, Daily, Refill(s) 0 Start Date: 02/22/11 Status: Ordered cholecalciferol 0.05 mg oral tablet (20 sources) Vitamin D Start: 08-28-2023 End: 08-28-2023 take 1 tablet by mouth once daily Cholecalciferol (Vitamin D3) 50 mcg (2,000 unit) tablet Active 2000 UNIT PO Daily August 28, 2023 10:48am [employer] tablet Orally Once a day; Note: Source Status: Taking; Provider: Dontrell Reeder Complies with drug therapy Start: 02-22-2023 take 1 tablet by barbara [...] every 12 hrs for 10 day(s) Active empagliflozin 10 mg oral tablet (2 sources) Sodium-Glucose Cotransporter 2 Inhibitor Start: 025 take 1 tablet by mouth once daily in the morning Empagliflozin (Jardiance) 10 mg tablet Active 10 MG PO Every morning November 27, 2024 12:00am Complies with drug therapy estrogens, conjugated ([facility]) 0.45 mg oral tablet (1 source) Estrogen [...] INHALATION Q12H 3 October 29, 2023 1:18pm Complies with drug therapy Start: 10-29-2023 Start: 10-29-2023 Fluticasone Pr opion-Salmeterol (Advair Diskus) [...] gargle mouth with water after each use. levothyroxine sodium 0.2 mg oral tablet (20 sources) l-Thyroxine Start: 11-28-19 take 1 tablet by mouth once daily in the morning Levothyroxine 200 mcg tablet Active 200 MCG PO Daily November 27, 2024 12:00am take first thing in the morning on an empty stomach, do not eat or drink for 45 min after taking Complies with drug therapy Start: 08-18-2024 End: 11-27-2024 take 2 tablets by mouth once daily in the morning Levothyroxine 100 mcg tablet Discontinued 200 MCG PO Daily August 18, 2024 12:00am November 27, 2024 12:21pm take first thing in the morning on an empty stomach, do not eat or drink for 30-45 min after taking Start: 08-18-2024 End: 09-08-2024 Levothyroxine (Synthroid) 25 mcg tablet Discontinued 25 MCG PO Daily August 18, 2024 12:00am September 08, 2024 10:58am take first thing in the morning on an empty stomach, do not eat or drink anything for 30-45 min after taking. Take in addition to 200 MCG (2- 100 MCG tablets) daily for a total of 225 MCG daily Start: 08-28-2023 End: 08-18-2024 take 1 tablet by mouth once daily [...] once daily. Take one tablet yasmine y. losartan potassium 50 mg oral tablet (20 sources) Angiotensin 2 Receptor Vicenta Start: 11-27-2024 take 1 tablet by mouth once daily Losartan 50 mg tablet Active 50 MG PO Daily November 27, 2024 12:14pm Complies with drug therapy Start: 12-05-2023 End: 09-08-2024 take 1 tablet by mouth once daily Losartan 50 mg tablet Discontinued 50 MG PO Daily April 22, 2024 9:14am September 08, 2024 10:07am Start: 08-28-2023 End: 09-26-2023 take 1 tablet by mouth once daily Losartan 50 mg tablet Discontinued 50 MG PO Daily August 28, [...] 15 MG PO Daily June 13, 2024 1:22pm Complies with drug therapy Start: 01-14-2024 End: 06-13-2024 Meloxicam 15 mg tablet Disco ntinued 0 .ROUTE .COMPLEX January 14, 2024 10:16am June 13, 2024 1:23pm TAKE 1 TABLET DAILY Start: 01-14-2024 End: 06-13-2024 Meloxicam 15 mg tablet Disco ntinued 0 .ROUTE .COMPLEX January 14, 2024 10:16am June 13, 2024 1:23pm TAKE 1 TABLET DAILY Start: 01-14-2024 End: 06-13-2024 Meloxicam 15 mg tablet Disco ntinued 0 .ROUTE .COMPLEX January 14, 2024 9:16am June 13, 2024 12:23pm TAKE 1 TABLET DAILY Start: 01-14-2024 Meloxicam 15 m g tablet Active 0 .ROUTE .COMPLEX January 14, 2024 9:16am TAKE 1 TABLET DAILY Start: 01-14-2024 Meloxicam Acti ve 0 .ROUTE .COMPLEX January 14, 2024 9:16am TAKE 1 TABLET DAILY Start: 01-14-2024 Meloxicam Acti ve 0 .ROUTE .COMPLEX January 14, 2024 10:16am TAKE 1 TABLET DAILY Start: 08-28-2023 End: 01-14-2024 take 1 tablet by mouth once daily Meloxicam 15 mg tablet Discontinued 15 MG PO Daily August 28, 2023 12:00am January 14, 2024 10:17am TAKE 1 TABLET DAILY; Refills: 0; Provider: Dontrell Reeder Meloxicam 15 mg TAKE 1 TABLET DAILY for 90 days Active 24 hr metFORMIN hydrochlorid e 500 mg extended release oral tablet (20 sources) Biguanide Start: 06-13-2024 Metformin 500 mg tablet extended release 24 hr Active 1000 MG PO .COMPLEX June 13, 2024 1:22pm 1,000 mg orally BID as normal; Complies with drug therapy Start: 01-14-2024 End: 06-13-2024 Metformin 500 mg tablet exte nded release 24 hr Discontinued 0 .ROUTE .COMPLEX 360 April 22, 2024 9:13am June 13, 2024 1:23pm TAKE 2 TABLETS TWICE A DAY WITH MEALS Start: 01-14-2024 End: 04-22-2024 Metformin 500 mg tablet exte nded release 24 hr Discontinued 0 .ROUTE .COMPLEX [facility] January 14, 2024 10:41am April 22, 2024 9:14am TAKE 2 TABLETS TWICE A DAY WITH MEALS Start: 01-14-2024 End: 04-22-2024 Metformin 500 mg tablet exte nded release 24 hr Discontinued 0 .ROUTE .COMPLEX [facility] January 14, 2024 9:41am April 22, 2024 8:14am TAKE 2 TABLETS TWICE A DAY WITH MEALS Start: 01-14-2024 Metformin Acti ve 0 .ROUTE .COMPLEX [facility] January 14, 2024 9:41am TAKE 2 TABLETS TWICE A DAY WITH MEALS Start: 01-14-2024 Metformin Acti ve 0 .ROUTE .COMPLEX [facility] January 14, 2024 10:41am TAKE 2 TABLETS TWICE A DAY WITH MEALS Start: 01-14-2024 End: 01-14-2024 take 2 tablets by mouth twice daily at mealtime Metformin 500 mg tablet extended release 24 hr Discontinued 500 MG PO .[facility] January 14, 2024 10:36am January 14, 2024 [...] Start: 10-20-2021 take 2 tablets by mo ut twice daily at mealtime metFORMIN HCl ER [...] Comment on above: Take 2 tablets by [facility] twice daily. mometasone furoate 0.05 mg/actuat metered dose nasal spray (20 sources) Corticosteroid Start: 04-10-2019 Start: 04-10-2019 Elocon 0.1 % 1 application Externally Once a day for 90 days prn Mar, Active Start: 09-14-2017 Mometasone (El ida) 0.1 % Cream Active 1 APPLIC TOPICAL Daily as needed for Rash September 14, 2017 12:00am Complies with drug therapy Start: 09-14-2017 End: 07-16-2024 Mometasone (Nasonex) 50 mcg/ actuation spray,non-aerosol Active 2 SPRAY INTRANASAL Daily as needed for allergic symptoms July 16, 2024 11:35am Complies with drug therapy Start: 02-22-2011 Nasonex Nasal, Daily, Refill(s) 0 Start Date: 02/22/11 Status: Ordered Start: 06-26-2008 mometasone fur oate(NASONEX 50 MCG/ACTUATION SPRAY) [place] twice in each nostril once daily. 0 06/26/2008 Active Comment on above: [place] twice in each nostril once daily. ProAir HFA 108 (90 Base) MCG/ACT (20 sources) Start: 7 ProAir HFA 108 (90 Base) MCG/ACT 2 inhalations Inhalation q4 hrs prn prn Oct, Active Tramadol (1 source) Opioid Agonist Start: 3 tramadol Refills(s) 0 Start Date: 05/10/23 Status: Ordered valACYclovir 1000 mg oral tablet (10 sources) Herpesvirus Nucleoside Analog DNA Polymerase Inhibitor, Herpes Simplex Virus Nucleoside Analog DNA Polymerase Inhibitor, Herpes Zoster Virus Nucleoside Analog DNA Polymerase Inhibitor Start: 1 take 1 tablet by mouth every eight hours Valtrex 1 GM 1 tablet Orally tid for 7 days Apr, Active Vitamin D (1 source) Start: 3 Vitamin D Refills(s) 0 Start Date: 05/10/23 Status: Ordered Vitamin D 25 MCG (1000 UT) (13 sources) Start: take 25 ug by mouth once daily Vitamin D 25 MCG (1000 UT) 5000 units Orally Once a day Dec, Active Completed/Discontinued Medications Medication Drug Class(es) Dates Sig (Normalized) Sig (Original) amoxicillin 875 mg / clavulanate 125 mg oral tablet (20 sources) Penicillin-class Antibacterial Start: 10-24-2024 End: 11-27-2024 take 1 tablet by mouth twice daily at mealtime Amoxicillin-Pot Clavulanate 875-125 mg tablet Discontinued 1 TAB PO Twice daily 09 03October 24, 2024 12:00am November 27, 2024 11:42am with food Start: 01-08-2024 End: 03-26-2024 take 1 tablet by mouth twice daily at mealtime Amoxicillin-Pot Clavulanate 875-125 mg tablet Discontinued 1 TAB PO Twice daily 09 03January 08, 2024 12:00am March 26, 2024 12:37pm with food Start: 10-24-2022 take 1 tablet [...] with food for 10 day(s) Jul, Active aspirin 81 mg chewable tablet (7 sources) Platelet Aggregation Inhibitor, Nonsteroidal Anti-inflammatory Drug Start: 09-01-2024 End: 11-27-2024 take 1 tablet by mouth once daily Aspirin 81 mg tablet,chewable Discontinued 1 TAB PO Daily September 01, 2024 12:00am November 27, 2024 11:42am atorvastatin 20 mg oral tablet (7 sources) HMG-CoA Reductase Inhibitor Start: 09-01-2024 End: 11-27-2024 take 1 tablet by mouth once daily Atorvastatin 20 mg tablet Discontinued 20 MG PO Daily September 01, 2024 12:00am November 27, 2024 11:42am cefTRIAXone (20 sources) Cephalosporin Antibacterial Start: 09-09-2018 Rocephin 500 mg Aug, 1 g cetirizine hydrochloride 10 mg oral tablet (20 sources) Histamine-1 Receptor Antagonist Start: 05-16-2007 End: 08-18-2024 take 1 tablet by mouth once daily Cetirizine (Zyrtec) 10 mg Tablet Discontinued 10 MG PO Daily September 14, 2017 12:00am August 18, 2024 11:47am Cetirizine HCl 1 0 mg TAKE 1 TABLET DAILY for 90 days Active take 1 tablet by barbara th every twelve hours Cetirizine HCl 10 MG 1 tablet Orally Twi ce a day Active Comment on above: Take one(1) tablet d aily. cyclobenzaprine hydrochloride 10 mg oral tablet (20 sources) Muscle Relaxant Start: 08-28-19 End: 08-19-19 take 1 tablet by mouth once daily at bedtime Cyclobenzaprine 10 mg tablet Discontinued 10 MG PO Daily at bedtime April 22, 2024 9:14am August 18, 2024 11:47am TAKE 1 TABLET AT BEDTIME Start: 01-30-2018 [...] needed for Muscle Spasm September 14, 2017 12:00am September 16, 2017 1:16pm 24 hr dilTIAZem hydrochloride 240 mg extended release oral capsule (13 sources) Calcium Channel Vicenta Start: 09-08-2024 End: 11-27-2024 take 1 capsule by mouth once daily Diltiazem Hcl 240 mg capsule,extended release 24hr Discontinued 240 MG PO Daily September 08, 2024 10:07am November 27, 2024 11:43am Start: 09-01-2024 End: 09-08-2024 take 1 capsule by mouth every twenty-four hours Diltiazem Hcl 240 mg capsule,extended release 24hr Discontinued MG PO September 01, 2024 12:00am September 08, 2024 10:07am Start: 09-01-2024 End: 09-08-2024 take 1 capsule by mouth every twenty-four hours Diltiazem Hcl 240 mg capsule,extended release 24hr Discontinued MG PO September 01, 2024 12:00am September 08, 2024 10:07am esomeprazole 40 mg delayed release oral capsule (20 sources) Proton Pump Inhibitor Start: 06-26-2008 End: 04-22-2024 take 1 capsule by mouth once daily Esomeprazole Magnesium (Nexium) 40 mg Capsule,Delayed Release(Dr/Ec) Discontinued 40 MG PO Daily September 14, 2017 12:00am April 22, 2024 9:16am Comment on above: Take one(1) capsule daily. 84 hr estradiol 0.15345 mg/hr transdermal system (20 sources) Estrogen Start: 09-14-2017 End: 08-28-2023 Estradiol [...] Start; Refills: 1; Qty: 90 Tablet; Provider: Donrtell Aguilar ( ) Start: 02-22-2023 take 1 tablet by barbara th every twenty-four hours Glimepiride 1 MG 1 tablet with breakfast or the first main meal of the day Orally Once a day for 30 days Feb, Active hydroCHLOROthiazide 25 mg / triamterene 37.5 mg oral capsule (20 sources) Potassium-sparing Diuretic, Thiazide Diuretic Start: 09-26-2023 End: 04-11-2024 take 1 capsule by mouth once daily in the morning Triamterene-Hydrochlorothiazid 37.5-25 mg capsule Discontinued 1 CAP PO Every morning September 26, 2023 12:00am April 11, 2024 1:05pm hydrocortisone 10 mg/ml / neomycin 3.5 mg/ml / polymyxin b [id number] unt/ml otic solution (12 sources) Aminoglycoside Antibacterial, Polymyxin-class Antibacterial, Corticosteroid Start: 08-11-2022 Tnelwaxd-Kcmyolpkg-YC [id number] 4 drops into affected ear Otic Three times a day for 7 days Jul, Not-Taking Ketorolac (20 sources) Nonsteroidal Anti-inflammatory Drug, Cyclooxygenase Inhibitor Start: 08-11-2016 Toradol per 15 mg Jul, 17 2 cc lisinopril 10 mg oral tablet (20 sources) Angiotensin Converting Enzyme Inhibitor Start: 09-16-2017 End: 08-28-2023 take 1 tablet by mouth once daily Lisinopril 10 mg tablet Discontinued 10 MG PO Daily September 16, 2017 12:00am August 28, 2023 11:13am montelukast 10 mg oral tablet (20 sources) Leukotriene Receptor Antagonist Start: 02-22-2011 End: 04-22-2024 take 1 tablet by mouth once daily at bedtime Montelukast (Singulair) 10 mg Tablet Discontinued 10 MG PO Daily at bedtime September 14, 2017 12:00am April 22, 2024 9:15am Comment on above: Take 10 mg by mouth daily at bedtime. Nkuqcfbb-Cao-Piuiywq Gluconate (Centrum) 9 mg iron/15 mL Liquid (20 sources) Start: 09-14-2017 End: 08-28-2023 take 2 tablets by mouth once daily Dmlajroz-Skw-Cimdfnf Gluconate (Centrum) 9 mg iron/15 mL Liquid Discontinued 2 TAB PO Daily September 13, 2017 11:00pm August 28, 2023 10:13am Start: 09-14-2017 End: 08-28-2023 take 2 tablets by mouth once daily Ukgwjosk-Xxm-Jbzhjhd Gluconate (Centrum) 9 mg iron/15 mL Liquid Discontinued 2 TAB PO Daily September 14, 2017 12:00am August 28, 2023 11:13am MULTIVIT-MINERALS/FERROUS GL UC (CENTRAM-CARE ORAL) (5 sources) MULTIVIT-MINERAL S/FERROUS GLUC (CENTRAM-CARE ORAL) Take by mouth twice daily. 0 Active Comment on above: Take by mouth twice daily. predniSONE 20 mg oral tablet (20 sources) Star t: 08-19 End: 11-18 take 3 tablets by mouth once daily, then take 2 tablets by mouth once daily, then take 1 tablet by mouth once daily, then take 0.5 tablet by mouth once daily at mealtime Prednisone 20 mg tablet Discontinued 0 PO .COMPLEX 20 13 October 24, 2024 12:00am November 27, 2024 11:44am 3 tabs a day x3 days then take 2 tabs a day x3 days then take 1 tab a day x3 then take 1/2 tablet a day x4 days with food or milk orally; Start: 05-16-2024 End: 07-16-2024 take 3 tablets by mouth once daily at mealtime, then take 2 tablets by mouth once daily, then take 1 tablet by mouth once daily at mealtime Prednisone 20 mg tablet Discontinued 0 PO .with food or milk 05 02June 13, 2024 1:00am July 16, 2024 11:36am take 3 tablets a day x3 days, [...] tablet Orally weaning down as directed Active 72 hr scopolamine 0.0139 mg/hr transdermal system (14 sources) Anticholinergic Start: 07-12-2022 Scopolamine 1 MG/3DAYS 1 patch to skin behind the ear Transdermal change q72 hours Jun, Not-Taking TB Test (20 sources) Start: 02-09-2015 TB Test Jan, 0.1 mL 24 hr venlafaxine 37.5 mg extended release oral capsule (3 sources) Serotonin and Norepinephrine Reuptake Inhibitor Start: 10-07-2021 venlafaxine ER (EFFEXOR XR) 37.5 mg 24 hr capsule take one a day, if tolerated after two weeks increase to two 60 capsule 3 10/07/2021 Active Comment on above: take one a day, if t olerated after two weeks increase to two Vitamin D [place] (Hua Kang) (3 sources) Start: 03-30-2016 End: 10-13-2021 take 1 capsule by mouth once daily at mealtime Vitamin D [place] (Hua Kang) Take 1 capsule by mouth daily with food. 0 03/30/2016 10/13/2021 Discontinued (Course of therapy completed) Start: 03-30-2016 take 1 capsule by mo uth once daily at mealtime Vitamin D [place] ([place]ua Kang) Take 1 capsule by mouth daily with food. 0 03/30/2016 Active Comment on above: Take 1 capsule by mo uth daily with food. Problems Active Problems Problem Classification Problem Date Documented Da te Episodic/Chronic Abdominal pain (20 sources) Abdominal pain; Translations: [Unspecified abdominal pain] Onset: 1 Resolved: 1 Episodic Anxiety disorders (20 sources) Generalized anxiety disorder; Translations: [Generalized anxiety disorder] Chronic Asthma (20 sources) Asthma; Translations: [Unspecified asthma, uncomplicated] Onset: 1 Resolved: 2 Chronic Diabetes mellitus with complications (5 sources) Type [...] Onset: 1 Resolved: 2 Chronic Essential hypertension (18 sources) Hypertensive disorder; Translations: [Essential (primary) hypertension] Onset: 5 05-10-2023 Chronic Fever of unknown origin (1 [...] Onset: 6 09-20-2015 Chronic Malaise and fatigue (20 sources) Other fatigue; Translations: [Fatigue] Episodic Miscellaneous [...] Long-term current use of systemic steroid; Translations: [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] Episodic Other aftercare (9 sources) 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; Translations: [Long-term (current) use of other medications] Onset: 1 Resolved: 2 Episodic Other aftercare (1 source) intermediate (current) use of oral hypoglycemic drugs; 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] Onset: 3 Episodic Other aftercare (20 sources) Long-term current use of drug therapy; Translations: [Other halfway (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] 08-28-2023 Episodic Other circulatory disease (20 sources) Elevated blood-pressure reading, without diagnosis of hypertension; Translations: [Elevated blood pressure reading without diagnosis of hypertension] Onset: 2 Resolved: 2 Episodic Other circulatory disease (20 sources) Elevated blood pressure; Translations: [Elevated blood-pressure [...] Chronic Other ear and sense organ disorders (20 sources) Asymmetrical sensorineural hearing loss; Translations: [Sensorineural [...] Episodic Other ear and sense organ disorders (20 sources) Tinnitus of vascular origin; Translations: [Pulsatile tinnitus, unspecified ear] 09-12-2023 Episodic Other ear and sense organ disorders (20 sources) Tinnitus; Translations: [Tinnitus, unspecified ear] 09-26-2023 Episodic Comment on above: right sided tinnitus Other ear and sense organ disorders (5 sources) Tinnitus, unspecified ear; Translations: [Tinnitus, unspecified] 09-26-2023 Episodic Other gastrointestinal disorders (20 sources) Diarrhea; Translations: [Diarrhea, unspecified] 10-29-2023 Episodic Other gastrointestinal disorders (9 sources) Burping; Translations: [Eructation] 07-16-2024 Episodic Other gastrointestinal disorders (5 sources) Eructation; Translations: [Flatulence, eructation, and gas pain] 07-16-2024 Episodic Other liver diseases (20 sources) Steatosis of liver; Translations: [Fatty (change of) liver, not elsewhere classified] Chronic Other liver diseases (20 sources) Inflammatory disease of liver; Translations: [Inflammatory liver disease, unspecified] 09-17-2017 Chronic Other lower respiratory disease (20 sources) Cough; Translations: [Cough] Episodic Other lower respiratory disease (6 sources) Wheezing; Translations: [Wheezing] Onset: 2 Resolved: 2 Episodic Other lower respiratory disease (9 sources) Wheezing; Translations: [Wheezing] 09-01-2024 Episodic Other lower respiratory disease (8 sources) Cough; Translations: [Acute cough] 10-24-2024 Episodic Other nervous system disorders (20 sources) [...] Resolved: 1 Episodic Other non-traumatic joint disorders (16 sources) Pain in unspecified hip; Translations: [Pain in joint, pelvic region and thigh] Episodic Other non-traumatic joint disorders (17 sources) Pain in left shoulder; Translations: [Left shoulder pain] Episodic Other non-traumatic joint disorders (20 sources) Multiple joint pain; Translations: [Pain in unspecified joint] 08-28-2023 Episodic Other non-traumatic joint disorders (20 sources) Hip pain; Translations: [Pain in unspecified [...] conditions (not mental disorders or infectious disease) (18 sources) CT of chest abnormal; Translations: [Abnormal findings on diagnostic imaging of other specified body structures] 09-01-2024 Chronic Comment on above: CT chest 08/05/24 ramirez e at [facility] Other screening for suspected conditions (not mental disorders or infectious disease) (20 sources) Liver function tests abnormal; Translations: [Other specified abnormal findings of blood chemistry] Onset: 5 Episodic Other upper respiratory disease (20 sources) Seasonal allergy; Translations: [Other seasonal allergic rhinitis] 08-28-2023 Chronic Other upper respiratory disease (13 sources) Other seasonal allergic rhinitis; Translations: [Allergic rhinitis, cause unspecified] Onset: 1 Resolved: 2 Chronic Other upper respiratory disease (1 source) Nasal congestion; Translations: [NASAL CONGESTION] Onset: 3 Episodic Other upper respiratory infections (9 sources) Acute sinusitis, unspecified; Translations: [Acute sinusitis] Episodic Otitis media and related conditions (20 [...] EXPOS COVID-19] Onset: 3 Urinary tract infections (20 sources) Urinary tract infectious disease; Translations: [Urinary tract infection, site not specified] 09-17-2017 Episodic Past or Other Problems Problem Classification Problem Date Documented Da te Episodic/Chronic Cardiac dysrhythmias (20 sources) Palpitations; Translations: [Palpitations] Onset: 08-25-2024 Episodic Chronic obstructive pulmonary disease and bronchiectasis (1 source) Bronchitis, not specified as acute or chronic; Translations: [Bronchitis J40] Onset: 02-24-2021 Resolved: 02-24-2021 Episodic Nonspecific chest pain (2 sources) Other chest pain; Translations: [Other chest pain] Onset: 08-25-2024 Episodic Other connective tissue disease (1 source) Pain in left hand Onset: 05-25-2021 Resolved: 05-25-2021 Episodic Other connective tissue disease (1 source) Pain in leg, unspecified Onset: 07-04-2021 Resolved: 07-04-2021 Episodic Other connective tissue disease (1 source) Fibromyalgia; Translations: [Fibromyalgia] Onset: 09-20-2015 Episodic Other gastrointestinal disorders (12 sources) Diarrhea, unspecified; Translations: [Diarrhea] Onset: 07-30-2024 Episodic Other lower respiratory disease (3 sources) Shortness of breath; Translations: [SHORTNESS OF BREATH] Onset: 09-14-2022 Episodic Unclassified (1 source) Lumbar pain M54.50 Onset: 07-04-2021 Resolved: 07-04-2021 Unclassified (1 source) Cough R05.9 Onset: 10-20-2021 Resolved: 10-20-2021 Unclassified (1 source) COUGH, UNSPECIFIED; Translations: [COUGH, UNSPECIFIED] Onset: 11-29-2021 Results Test Name Value Interpretation Reference Range Facility Office Visiton 01-05-2025 Follow-up visit [id number] Canelo Pathak 1965 F Date Provider Department Center 01/05/2025 Nahed-NOE ESPINO NUBIA Lara Family History Problem Relation Age of Onset Pulmonary embolism Mother Kidney disease Father Heart attack Father Family Status - Relation Status Age at Mother Father Brother Alive Level of Service:75175 ID OFFICE/OUTPATIENT ESTABLISHED HIGH MDM [address] [facility] Orders Onlyon 12-29-2024 Orders Only [id number] Canelo Pathak 1965 F Date Provider Department Center 12/29/2024 [id number], HISTORICAL NUBIA [facility] Family History Problem Relation Age of Onset Pulmonary embolism Mother Kidney disease Father Heart attack Father Family Status - Relation Status Age at Mother Father Brother Alive Normal [facility] Basophils Auto (Bld) [#/Vol] Ordered By: Jeff Jon on 11-26-2024 Basophils (Bld) [#/Vol] 0.1 10 3/uL 0.0-0.1 [facility] Basophils/100 WBC Auto (Bld) Ordered By: Jeff Jon on 11-26-2024 Basophils/100 WBC (Bld) 0.7 % 0.2-2.0 [facility] Eosinophils/100 WBC Auto (Bl d)Ordered By: Jeff Jon on 11-26-2024 Eosinophils/100 WBC (Bld) 4.6 % 0.9-7.0 [facility] Erythrocyte distribution wid th Auto (RBC) [Ratio]Ordered By: Jeff Jon on 11-26-2024 Erythrocyte distribution width (RBC) [Ratio] 12.0 % 11.0-15.0 [facility] Glucose mean value [Mass/vol ume] in Blood Estimated from glycated hemoglobinOrdered By: Jeff Jon on 11-26-2024 Average glucose Estimated from glycated hemoglobin (Bld) [Mass/Vol] 186 mg/dL [facility] Hematocrit Auto (Bld) [Volum e fraction]Ordered By: eJff Jon on 11-26-2024 Hematocrit (Bld) [Volume fraction] 40.2 % 36.0-48.0 [facility] Hemoglobin A1c percentageOrd ered By: Jeff Jon on 11-26-2024 HbA1c (Bld) [Mass fraction] 8.1 % High 4.5-6.2 [facility] Comment on above: ADA RECOMMENDED LIMI T 4.0 - 6.0ADA THERAPEUTIC TARGET < 7.0ACTION SUGGESTED> 7.0 Hemoglobin [Mass/volume] in BloodOrdered By: Jeff Jon on 11-26-2024 Hemoglobin (Bld) [Mass/Vol] 13.4 g/dL 12.0-16.0 [facility] - Chemistry and C hemistry - challengeOrdered By: Jeff Jon on 11-26-2024 Bilirubin Ql (U) Negative NEGATIVE [facility] Glucose (U) [Mass/Vol] Negative NEGATIVE [facility] Ketones Ql (U) Negative NEGATIVE [facility] pH (U) 6.0 [pH] 5.0-9.0 [facility] Specific gravity (U) [Rel density] >=1.030 Abnormal 1.005-1.025 [facility] Urobilinogen Qn (U) 0.2 {David'U}/dL 0.2-1.0 [facility] - Hematology and Cell countsOrdered By: Jeff Jon on 11-26-2024 Immature granulocytes/100 WBC (Bld) 0.6 % High 0.0-0.5 [facility] - Specimen inform ationOrdered By: Jeff Jon on 11-26-2024 Appearance (U) CLEAR CLEAR [facility] Color (U) LT. YELLOW YELLOW [facility] - UrinalysisOrder ed By: Jeff Jon on 11-26-2024 Leukocyte esterase Test strip Ql (U) Negative NEGATIVE [facility] Nitrite Ql (U) Negative NEGATIVE [facility] Protein Ql (U) Negative NEG/TRACE [facility] Leukocytes [#/volume] correc reilly for nucleated erythrocytes in Blood by Automated counOrdered By: Jeff Jon on 11-26-2024 WBC corrected for nucl RBC Auto (Bld) [#/Vol] 7.2 10 3/uL 4.0-11.0 [facility] Lymphocytes Auto (Bld) [#/Vo l]Ordered By: Jeff Jon on 11-26-2024 Lymphocytes (Bld) [#/Vol] 1.9 10 3/uL 1.2-3.8 [facility] Lymphocytes/100 WBC Auto (Bl d)Ordered By: Jeff Jon on 11-26-2024 Lymphocytes/100 WBC (Bld) 25.8 % 20.5-60.0 [facility] MCH Auto (RBC) [Entitic mass ]Ordered By: Jeff Jon on 11-26-2024 MCH (RBC) [Entitic mass] 31.0 pg 26.7-34.0 [facility] MCHC Auto (RBC) [Mass/Vol]Or dered By: Jeff Jon on 11-26-2024 MCHC (RBC) [Mass/Vol] 33.3 g/dL 29.9-35.2 [facility] MCV Auto (RBC) [Entitic vol] Ordered By: Jeff Jon on 11-26-2024 MCV (RBC) [Entitic vol] 93.1 fL 81.0-99.0 [facility] Monocytes Auto (Bld) [#/Vol] Ordered By: Jeff Jon on 11-26-2024 Monocytes (Bld) [#/Vol] 0.6 10 3/uL 0.3-0.8 [facility] Monocytes/100 WBC Auto (Bld) Ordered By: Jeff Jon on 11-26-2024 Monocytes/100 WBC (Bld) 7.7 % 1.7-12.0 [facility] Neutrophils Auto (Bld) [#/Vo l]Ordered By: Jeff Jon on 11-26-2024 Neutrophils (Bld) [#/Vol] 4.4 10 3/uL 1.4-6.5 [facility] Neutrophils/100 WBC Auto (Bl d)Ordered By: Jeff Jon on 11-26-2024 Neutrophils/100 WBC (Bld) 60.6 % 43.0-75.0 [facility] No Panel InformationOrdered By: Jeff Jon on 11-26-2024 Eosinophils # (Auto) 0.3 10 3/uL 0.0-0.7 [facility] Immature Granulocyte # (Auto) 0.04 10 3/uL High 0.00-0.03 [facility] Urine Occult Blood Negative NEGATIVE [facility] Platelet mean volume Auto (B ld) [Entitic vol]Ordered By: Jeff Jon on 11-26-2024 Platelet mean volume (Bld) [Entitic vol] 9.6 fL 9.5-13.5 [facility] Platelets Auto (Bld) [#/Vol] Ordered By: Jeff Jon on 11-26-2024 Platelets (Bld) [#/Vol] 306 10 3/uL 150-450 [facility] RBC Auto (Bld) [#/Vol]Ordere d By: Jeff Jon on 11-26-2024 RBC (Bld) [#/Vol] 4.32 10 6/uL 4.20-5.40 [facility] Urine Cultureon 11-26-2024 Bacteria identified Cx Nom (U) 75,000 colonies/ml mixed bacterial skin contaminants 2 Days PERFORMED BY: [facility] [place] [address] PATHOLOGIST EDUCATION PROGRAM COORDINATOR ASAD DANIELLE M.D. Normal [facility] Comment on above: Performed By: #### C UU #### [facility] [address] Cholesterol in LDL Calc [Mas s/Vol]Ordered By: Jeff Jon on 11-20-2024 Cholesterol in LDL [Mass/Vol] 107.0 mg/dL [facility] Comment on above: <100 mg/dl [id number] 0-129 mg/dl NEAR OR ABOVE [id number] mg/dl BORDERLINE [id number] mg/dl HIGH>190 mg/dl VERY HIGH Cholesterol in VLDL Calc [Ma ss/Vol]Ordered By: Jeff Jon on 11-20-2024 Cholesterol in VLDL [Mass/Vol] 18.2 mg/dL [facility] Estimated glomerular filtrat ion rate (GFR) non- AmericanOrdered By: Jeff Jon on 11-20-2024 GFR/1.73 sq M.predicted among non-blacks MDRD (S/P/Bld) [Vol rate/Area] mL/min/{1.73_m2} >=60 mL/min/1.73m 2 [facility] Globulin Calc (S) [Mass/Vol] Ordered By: Jeff Jon on 11-20-2024 Globulin (S) [Mass/Vol] 3.3 g/dL F [facility] - Chemistry and C hemistry - challengeOrdered By: Jeff Jon on 11-20-2024 Albumin [Mass/Vol] 3.4 g/dL 3.4-5.0 [facility] ALP [Catalytic activity/Vol] 82 U/L 46-116 [facility] ALT [Catalytic activity/Vol] 33 U/L 14-59 [facility] AST [Catalytic activity/Vol] 20 U/L 15-37 [facility] Bilirubin [Mass/Vol] 0.4 mg/dL 0.2-1.0 [facility] Calcium [Mass/Vol] 9.3 mg/dL 8.5-10.1 [facility] Chloride [Moles/Vol] 104 mmol/L 98-107 [facility] Cholesterol [Mass/Vol] 207 mg/dL High <=200 Fi [facility] Cholesterol in HDL [Mass/Vol] 82 mg/dL High 40-60 [facility] Comment on above: > or =60 mg/dl - LOW CARDIOVASCULAR RISK<40 mg/dl - HIGH CARDIOVASCULAR RISK CO2 [Moles/Vol] 27.2 mmol/L 21.0-32.0 [facility] Creatinine [Mass/Vol] 0.68 mg/dL 0.55-1.02 [facility] Free T4 [Mass/Vol] 1.68 ng/dL High 0.76-1.46 [facility] GFR/1.73 sq M.predicted MDRD (S/P/Bld) [Vol rate/Area] mL/min/{1.73_m2} >=60 mL/min/1.73m 2 [facility] Glucose [Mass/Vol] 163 mg/dL High 74-106 [facility] Potassium [Moles/Vol] 4.5 mmol/L 3.5-5.1 [facility] Protein [Mass/Vol] 6.7 g/dL 6.4-8.2 [facility] Sodium [Moles/Vol] 141 mmol/L 136-145 [facility] Triglyceride [Mass/Vol] 91 mg/dL <=150 F [facility] TSH Qn 0.712 m[IU]/L 0.358-3.740 [facility] Urea nitrogen [Mass/Vol] 15.0 mg/dL 7.0-18.0 [facility] Urea nitrogen/Creatinine [Mass ratio] 22.1 mg/mg [facility] Laboratory - Chemistry and C hemistry - challengeOrdered By: Neo Espino on 11-20-2024 Bilirubin.direct [Mass/Vol] 0.1 mg/dL 0.0-0.2 [facility] CK [Catalytic activity/Vol] 29 U/L 26-192 [facility] - Hematology and Cell countsOrdered By: Outside Provider on 11-20-2024 ESR (Bld) [Velocity] 15 mm/h <=30 [facility] No Panel InformationOrdered By: Jeff Jon on 11-20-2024 25-Hydroxy Vitamin D Total 34.8 ng/mL [facility] Comment on above: <20 ng/mL Vit D defi cient20-<30 ng/mL Vit D [id number] ng/mL Vit D sufficient>100 ng/mL Potential Toxicity Free Triiodothyronine 3.27 pg/mL 2.18-3.98 [facility] No Panel InformationOrdered By: Outside Provider on 11-20-2024 C-Reactive Protein, Quantitative <0.50 mg/dL <=0.50 [facility] Scl-70 (Scleroderma) Antibody <0.2 AI 0.0-0.9 [facility] Comment on above: Performed at: [employer] [facility] [employer] [id number] [place] [address] [id number] Director: Giuseppe Newell PhD, Phone: [phone] Serum nuclear antibody titer Ordered By: Outside Provider on 11-20-2024 Nuclear Ab (S) [Titer] Negative . [facility] Comment on above: Negative <1:80 Borde rline 1:80 Positive >1:80ICAP nomenclature: AC-0For more information about Hep-2 cell patterns useANApatterns.org, the official website for theInternational Consensus on Antinuclear Antibody (KATHY)Patterns (ICAP).Performed at: [employer] - [facility] [id number] [place] [address] [id number] Director: Giuseppe Newell PhD, Phone: [phone] Serum or plasma albumin/glob ulin mass ratioOrdered By: Jeff Jon on 11-20-2024 Albumin/Globulin [Mass ratio] 1.0 {ratio} [facility] Serum or plasma anion gap de terminationOrdered By: Jeff Jon on 11-20-2024 Anion gap [Moles/Vol] 14.3 mmol/L [facility] Serum or plasma rheumatoid f actor measurement (units/volume)Ordered By: Outside Provider on 11-20-2024 Rheumatoid factor Qn [IU]/mL <14.0 [facility] Comment on above: Performed at: [employer] [id number] [place] [address] [id number] Director: Giuseppe Newell PhD, Phone: [phone] Serum or plasma total choles terol/high density lipoprotein (HDL) cholesterol mass ratOrdered By: Jeff Jon on 11-20-2024 Cholesterol.total/Haylie sterol in HDL [Mass ratio] 2.5 {ratio} [facility] Comment on above: 3.3 - 4.4 LOW RISK4. 4 - 7.1 AVERAGE RISK7.1 - 11.0 MODERATE RISK>11.0 [facility] - Chemistry and C hemistry - challengeon 09-05-2024 Free T4 [Mass/Vol] 2.01 ng/dL High 0.76-1.46 [facility] TSH Qn 0.260 m[IU]/L Low 0.358-3.740 [facility] No Panel Informationon 09-05 Free Triiodothyronine 2.19 pg/mL 2.18-3.98 [facility] Office Visiton 08-25-2024 Follow-up visit [id number] Canelo Pathak 1965 F Date Provider Department Center 08/25/2024 NEO MORENO NUBIA [facility] Family History Problem Relation Age of Onset Pulmonary embolism Mother Kidney disease Father Heart attack Father Family Status - Relation Status Age at Mother Father Brother Alive Level of Service:[id number] ID OFFICE/OUTPATIENT NEW MODERATE MDM [address] [facility] Basophils Auto (Bld) [#/Vol] on 08-06-2024 Basophils (Bld) [#/Vol] Automated basoph il count 0.0-0.1 [facility] Basophils/100 WBC Auto (Bld) on 08-06-2024 Basophils/100 WBC (Bld) Automated basophil % 0. 2-2.0 [facility] Cholesterol in LDL Calc [Mas s/Vol]on 08-06-2024 Cholesterol in LDL [Mass/Vol] Cholesterol in LDL [Mass/volume] in Serum or Plasma by calculation [facility] Comment on above: <100 mg/dl [id number] 0-129 mg/dl NEAR OR ABOVE [id number] mg/dl BORDERLINE PWRP338-156 mg/dl HIGH>190 mg/dl VERY HIGH Cholesterol in VLDL Calc [Ma ss/Vol]on 08-06-2024 Cholesterol in VLDL [Mass/Vol] Cholesterol in VLDL [Mass/volume] in Serum or Plasma by calculation [facility] Eosinophils/100 WBC Auto (Bl d)on 08-06-2024 Eosinophils/100 WBC (Bld) Automated eosinophil % 0.9-7.0 [facility] Erythrocyte distribution wid th Auto (RBC) [Ratio]on 08-06-2024 Erythrocyte distribution width (RBC) [Ratio] Erythrocyte distribution width [Ratio] by Automated count 11.0-15.0 [facility] Estimated glomerular filtrat ion rate (GFR) non- Americanon 08-06-2024 GFR/1.73 sq M.predicted among non-blacks MDRD (S/P/Bld) [Vol rate/Area] Estimated glomerular filtration rate (GFR) non- >=60 mL/min/1.73m 2 [facility] Globulin Calc (S) [Mass/Vol] on 08-06-2024 Globulin (S) [Mass/Vol] Serum globulin measurement by calculation (mass/volume) [facility] Glucose mean value [Mass/vol ume] in Blood Estimated from glycated hemoglobinon 08-06-2024 Average glucose Estimated from glycated hemoglobin (Bld) [Mass/Vol] Glucose mean value [Mass/volume] in Blood Estimated from glycated hemoglobin [facility] Hematocrit Auto (Bld) [Volum e fraction]on 08-06-2024 Hematocrit (Bld) [Volume fraction] Hematocrit [Volume Fraction] of Blood by Automated count 36.0-48.0 [facility] Hemoglobin A1c percentageon 08-06-2024 HbA1c (Bld) [Mass fraction] Hemoglobin A1c percentage High 4.5-6.2 [facility] Comment on above: ADA RECOMMENDED LIMI T 4.0 - 6.0ADA THERAPEUTIC TARGET < 7.0ACTION SUGGESTED> 7.0 Hemoglobin [Mass/volume] in Bloodon 08-06-2024 Hemoglobin (Bld) [Mass/Vol] Hemoglobin [Mass/volume] in Blood 12.0-16.0 [facility] Laboratory - Chemistry and C hemistry - challengeon 08-06-2024 Albumin [Mass/Vol] 4.1 g/dL 3.4-5.0 [facility] ALP [Catalytic activity/Vol] 91 U/L 46-116 [facility] ALT [Catalytic activity/Vol] 24 U/L 14-59 [facility] AST [Catalytic activity/Vol] 23 U/L 15-37 [facility] Bilirubin [Mass/Vol] 0.5 mg/dL 0.2-1.0 [facility] Calcium [Mass/Vol] 10.1 mg/dL 8.5-10.1 [facility] Chloride [Moles/Vol] 100 mmol/L 98-107 [facility] Cholesterol [Mass/Vol] 258 mg/dL High <=200 [facility] Cholesterol in HDL [Mass/Vol] 86 mg/dL High 40-60 [facility] Comment on above: > or =60 mg/dl - LOW CARDIOVASCULAR RISK<40 mg/dl - HIGH CARDIOVASCULAR RISK CO2 [Moles/Vol] 27.5 mmol/L 21.0-32.0 [facility] Creatinine [Mass/Vol] 0.91 mg/dL 0.55-1.02 [facility] GFR/1.73 sq M.predicted MDRD (S/P/Bld) [Vol rate/Area] mL/min/{1.73_m2} >=60 mL/min/1.73m 2 [facility] Glucose [Mass/Vol] 125 mg/dL High 74-106 [facility] Magnesium [Mass/Vol] 1.9 mg/dL 1.8-2.4 [facility] Potassium [Moles/Vol] 4.0 mmol/L 3.5-5.1 [facility] Protein [Mass/Vol] 7.7 g/dL 6.4-8.2 [facility] Sodium [Moles/Vol] 140 mmol/L 136-145 [facility] Triglyceride [Mass/Vol] 158 mg/dL High <=150 F [facility] TSH Qn 50.079 m[IU]/L High 0.358-3.740 [facility] Urea nitrogen [Mass/Vol] 18.0 mg/dL 7.0-18.0 [facility] Urea nitrogen/Creatinine [Mass ratio] 19.8 mg/mg [facility] - Hematology and Cell countson 08-06-2024 Immature granulocytes/100 WBC (Bld) 0.5 % 0.0-0.5 [facility] Leukocytes [#/volume] correc reilly for nucleated erythrocytes in Blood by Automated counon 08-06-2024 WBC corrected for nucl RBC Auto (Bld) [#/Vol] Leukocytes [#/volume] corrected for nucleated erythrocytes in Blood by Automated coun 4.0-11.0 [facility] Lymphocytes Auto (Bld) [#/Vo l]on 08-06-2024 Lymphocytes (Bld) [#/Vol] Lymphocytes [#/volume] in Blood by Automated count 1.2-3.8 [facility] Lymphocytes/100 WBC Auto (Bl d)on 08-06-2024 Lymphocytes/100 WBC (Bld) Lymphocytes/100 leukocytes in Blood by Automated count 20.5-60.0 [facility] MCH Auto (RBC) [Entitic mass ]on 08-06-2024 MCH (RBC) [Entitic mass] MCH [Entitic mass] by Automated count 26.7-34.0 [facility] MCHC Auto (RBC) [Mass/Vol]on 08-06-2024 MCHC (RBC) [Mass/Vol] MCHC [Mass/volume] by Automated count 29.9-35.2 [facility] MCV Auto (RBC) [Entitic vol] on 08-06-2024 MCV (RBC) [Entitic vol] MCV [Entitic vol ume] by Automated count 81.0-99.0 [facility] Monocytes Auto (Bld) [#/Vol] on 08-06-2024 Monocytes (Bld) [#/Vol] Automated blood monocyte count 0.3-0.8 [facility] Monocytes/100 WBC Auto (Bld) on 08-06-2024 Monocytes/100 WBC (Bld) Automated monocyte % 1. 7-12.0 [facility] Neutrophils Auto (Bld) [#/Vo l]on 08-06-2024 Neutrophils (Bld) [#/Vol] Neutrophils [#/volume] in Blood by Automated count 1.4-6.5 [facility] Neutrophils/100 WBC Auto (Bl d)on 08-06-2024 Neutrophils/100 WBC (Bld) Automated neutrophil % 43.0-75.0 [facility] No Panel Informationon 08-06 Eosinophils # (Auto) 0.4 10 3/uL 0.0-0.7 [facility] Immature Granulocyte # (Auto) 0.04 10 3/uL High 0.00-0.03 [facility] Troponin I High Sensitivity 6.6 pg/mL 4.0-51.3 [facility] Comment on above: CUT-OFF POINTS HAVE BEEN ESTABLISHED BASED ON THE FOURTHUNIVERSAL DEFINITION OF MYOCARDIAL INFARCTION. THE UPPERREFERENCE LIMIT (URL) OF TROPONIN, DEFINED THE 99THPERCENTILE OF cTnI DISTRIBUTION IN A REFERENCE POPULATION,HAS BEEN CONFIRMED THE DECISION THRESHOLD FOR MIDIAGNOSIS.99TH PERCENTILE = 51.4 PG/MLNOTE: HIGH-SENSITIVITY TROPONIN ASSAY IS NOT INTENDED TO BEUSED IN ISOLATION BUT SHOULD BE INTERPRETED IN CONJUNCTIONWITH OTHER DIAGNOSTIC AND CLINICAL INFORMATION. Platelet mean volume Auto (B ld) [Entitic vol]on 08-06-2024 Platelet mean volume (Bld) [Entitic vol] Platelet mean volume [Entitic volume] in Blood by Automated count 9.5-13.5 [facility] Platelets Auto (Bld) [#/Vol] on 08-06-2024 Platelets (Bld) [#/Vol] Platelets [#/vol ume] in Blood by Automated count 150-450 [facility] RBC Auto (Bld) [#/Vol]on RBC (Bld) [#/Vol] Erythrocytes [#/volume] in Blood by Automated count 4.20-5.40 [facility] Serum or plasma albumin/glob ulin mass ratioon 08-06-2024 Albumin/Globulin [Mass ratio] Serum or plasma albumin/globulin mass ratio [facility] Serum or plasma anion gap de terminationon 08-06-2024 Anion gap [Moles/Vol] Serum or plasma anion gap determination [facility] Serum or plasma total choles terol/high density lipoprotein (HDL) cholesterol mass constantin 08-06-2024 Cholesterol.total/Haylie sterol in HDL [Mass ratio] Serum or plasma total cholesterol/high density lipoprotein (HDL) cholesterol mass rat [facility] Comment on above: 3.3 - 4.4 LOW RISK4. 4 - 7.1 AVERAGE RISK7.1 - 11.0 MODERATE RISK>11.0 HIGH RISK Basophils Auto (Bld) [#/Vol] on 08-05-2024 Basophils (Bld) [#/Vol] Automated basoph il count 0.0-0.1 [facility] Basophils/100 WBC Auto (Bld) on 08-05-2024 Basophils/100 WBC (Bld) Automated basophil % 0. 2-2.0 [facility] Eosinophils/100 WBC Auto (Bl d)on 08-05-2024 Eosinophils/100 WBC (Bld) Automated eosinophil % 0.9-7.0 [facility] Erythrocyte distribution wid th Auto (RBC) [Ratio]on 08-05-2024 Erythrocyte distribution width (RBC) [Ratio] Erythrocyte distribution width [Ratio] by Automated count 11.0-15.0 [facility] Estimated glomerular filtrat ion rate (GFR) non- Americanon 08-05-2024 GFR/1.73 sq M.predicted among non-blacks MDRD (S/P/Bld) [Vol rate/Area] Estimated glomerular filtration rate (GFR) non- >=60 mL/min/1.73m 2 [facility] Globulin Calc (S) [Mass/Vol] on 08-05-2024 Globulin (S) [Mass/Vol] Serum globulin measurement by calculation (mass/volume) [facility] Hematocrit Auto (Bld) [Volum e fraction]on 08-05-2024 Hematocrit (Bld) [Volume fraction] Hematocrit [Volume Fraction] of Blood by Automated count 36.0-48.0 [facility] Hemoglobin [Mass/volume] in Bloodon 08-05-2024 Hemoglobin (Bld) [Mass/Vol] Hemoglobin [Mass/volume] in Blood 12.0-16.0 [facility] INR in Platelet poor plasma by Coagulation assayon 08-05-2024 INR Coag (PPP) [Relative time] INR in Platelet poor plasma by Coagulation assay [facility] Comment on above: DESIRED INR:2.0-3.0 CONDITIONS NOT LISTED BELOW2.5-3.5 FOR PROSTHETIC HEART VALVE REPLACEMENT2.5-3.5 RECURRENT THROMBOSIS Laboratory - Chemistry and C hemistry - challengeon 08-05-2024 Albumin [Mass/Vol] 3.7 g/dL 3.4-5.0 [facility] ALP [Catalytic activity/Vol] 91 U/L 46-116 [facility] ALT [Catalytic activity/Vol] 20 U/L 14-59 [facility] AST [Catalytic activity/Vol] 20 U/L 15-37 [facility] Bilirubin [Mass/Vol] 0.4 mg/dL 0.2-1.0 [facility] Calcium [Mass/Vol] 10.0 mg/dL 8.5-10.1 [facility] Chloride [Moles/Vol] 102 mmol/L 98-107 [facility] CO2 [Moles/Vol] 28.1 mmol/L 21.0-32.0 [facility] Creatinine [Mass/Vol] 0.81 mg/dL 0.55-1.02 [facility] GFR/1.73 sq M.predicted MDRD (S/P/Bld) [Vol rate/Area] mL/min/{1.73_m2} >=60 mL/min/1.73m 2 [facility] Glucose [Mass/Vol] 146 mg/dL High 74-106 [facility] Magnesium [Mass/Vol] 1.7 mg/dL Low 1.8-2.4 [facility] Natriuretic peptide B (Bld) [Mass/Vol] 56.0 pg/mL <=900.0 [facility] Potassium [Moles/Vol] 4.7 mmol/L 3.5-5.1 [facility] Protein [Mass/Vol] 7.4 g/dL 6.4-8.2 [facility] Sodium [Moles/Vol] 138 mmol/L 136-145 [facility] Urea nitrogen [Mass/Vol] 21.0 mg/dL High 7.0-18.0 [facility] Urea nitrogen/Creatinine [Mass ratio] 25.9 mg/mg [facility] Laboratory - Hematology and Cell countson 08-05-2024 Immature granulocytes/100 WBC (Bld) 0.7 % High 0.0-0.5 [facility] - Microbiology an d Antimicrobial susceptibilityon 08-05-2024 SARS-CoV-2 (COVID-19) RNA ARIADNA+probe Ql (Unsp spec) Negative NEGATIVE [facility] Comment on above: This test has not be en FDA cleared or approved, but has beenauthorized by the FDA under an Emergency Use Authorization(EUA) for use by authorized laboratories certified underIA that meet the requirements to perform moderate or highcomplexity testing. This test has been authorized only forthe detection of proteins from SARS-CoV-2, not for any otherviruses or pathogens. The emergency use of this test isauthorized for the duration of the declaration thatcircumstances exist justifying the authorization ofemergency use of in vitro diagnostic tests for detectionand/or diagnosis of Covid-19 under section 564(b)(1) of theAct, 21 U.S.C. 360bbb-3(b)(1), unless the declaration isterminated or authorization is revoked sooner. Leukocytes [#/volume] correc reilly for nucleated erythrocytes in Blood by Automated counon 08-05-2024 WBC corrected for nucl RBC Auto (Bld) [#/Vol] Leukocytes [#/volume] corrected for nucleated erythrocytes in Blood by Automated coun 4.0-11.0 [facility] Lymphocytes Auto (Bld) [#/Vo l]on 08-05-2024 Lymphocytes (Bld) [#/Vol] Lymphocytes [#/volume] in Blood by Automated count 1.2-3.8 [facility] Lymphocytes/100 WBC Auto (Bl d)on 08-05-2024 Lymphocytes/100 WBC (Bld) Lymphocytes/100 leukocytes in Blood by Automated count 20.5-60.0 [facility] MCH Auto (RBC) [Entitic mass ]on 08-05-2024 MCH (RBC) [Entitic mass] MCH [Entitic mass] by Automated count 26.7-34.0 [facility] MCHC Auto (RBC) [Mass/Vol]on 08-05-2024 MCHC (RBC) [Mass/Vol] MCHC [Mass/volume] by Automated count 29.9-35.2 [facility] MCV Auto (RBC) [Entitic vol] on 08-05-2024 MCV (RBC) [Entitic vol] MCV [Entitic vol ume] by Automated count 81.0-99.0 [facility] Monocytes Auto (Bld) [#/Vol] on 08-05-2024 Monocytes (Bld) [#/Vol] Automated blood monocyte count 0.3-0.8 [facility] Monocytes/100 WBC Auto (Bld) on 08-05-2024 Monocytes/100 WBC (Bld) Automated monocyte % 1. 7-12.0 [facility] Neutrophils Auto (Bld) [#/Vo l]on 08-05-2024 Neutrophils (Bld) [#/Vol] Neutrophils [#/volume] in Blood by Automated count 1.4-6.5 [facility] Neutrophils/100 WBC Auto (Bl d)on 08-05-2024 Neutrophils/100 WBC (Bld) Automated neutrophil % 43.0-75.0 [facility] No Panel Informationon 08-05 Troponin I High Sensitivity 7.6 pg/mL 4.0-51.3 [facility] Comment on above: CUT-OFF POINTS HAVE BEEN ESTABLISHED BASED ON THE FOURTHUNIVERSAL DEFINITION OF MYOCARDIAL INFARCTION. THE UPPERREFERENCE LIMIT (URL) OF TROPONIN, DEFINED THE 99THPERCENTILE OF cTnI DISTRIBUTION IN A REFERENCE POPULATION,HAS BEEN CONFIRMED THE DECISION THRESHOLD FOR MIDIAGNOSIS.99TH PERCENTILE = 51.4 PG/MLNOTE: HIGH-SENSITIVITY TROPONIN ASSAY IS NOT INTENDED TO BEUSED IN ISOLATION BUT SHOULD BE INTERPRETED IN CONJUNCTIONWITH OTHER DIAGNOSTIC AND CLINICAL INFORMATION. Eosinophils # (Auto) 0.5 10 3/uL 0.0-0.7 [facility] Immature Granulocyte # (Auto) 0.07 10 3/uL High 0.00-0.03 [facility] Platelet mean volume Auto (B ld) [Entitic vol]on 08-05-2024 Platelet mean volume (Bld) [Entitic vol] Platelet mean volume [Entitic volume] in Blood by Automated count 9.5-13.5 [facility] Platelets Auto (Bld) [#/Vol] on 08-05-2024 Platelets (Bld) [#/Vol] Platelets [#/vol ume] in Blood by Automated count 150-450 [facility] Prothrombin time (PT)on 07-19 PT Coag (PPP) [Time] Prothrombin time (PT) 9.0-11.6 [facility] RBC Auto (Bld) [#/Vol]on RBC (Bld) [#/Vol] Erythrocytes [#/volume] in Blood by Automated count 4.20-5.40 [facility] Serum or plasma albumin/glob ulin mass ratioon 08-05-2024 Albumin/Globulin [Mass ratio] Serum or plasma albumin/globulin mass ratio [facility] Serum or plasma anion gap de terminationon 08-05-2024 Anion gap [Moles/Vol] Serum or plasma anion gap determination [facility] Blood Urea Nitrogenon 2024 Urea nitrogen [Mass/Vol] 20 mg/dL Normal 7-25 [facility] Comment on above: Order Comment: STAT FOR CT Performed By: #### B JOE, CREAT #### [address] abdomen pelvis w conon CT abdomen pelvis w con [facility] [place] [address] [place] [address] CT Scan Report Signed Patient: Canelo Pathak MR#: [id number] 4 : 1965 Acct:[id number] Age/Sex: 58 / F ADM Date: 07/30/24 Loc: CT Room: Type: [facility] Attending Dr: Carol Alegria DO Copies to: Carol Alegria DO Ordering Provider: Carol Alegria DO Date of Service: 07/30/24 CT/CT abdomen pelvis w con: R10.9 - Unspecified abdominal pain CT ABDOMEN AND PELVIS WITH INTRAVENOUS CONTRAST: CLINICAL HISTORY: Abdominal pain, diarrhea COMPARISON: None TECHNIQUE: Spiral images were obtained through the abdomen and pelvis following the administration of intravenous contrast. This CT exam was performed using one or more following dose reduction techniques: Automated exposure control, adjustment of the mA and/or kV according to patient size, or use of iterative reconstruction technique. FINDINGS: Lung Bases: [Minimal hypoventilatory change.] Organs:Gallbladder absent. Otherwise the liver, spleen, adrenals, kidneys, pancreas unremarkable.[ GI: Mild retained stool within colon. No bowel obstruction. Mild distal colonic diverticulosis.[Mild ly redundant gas-filled loop of sigmoid colon.. No CT findings acute ap pendicitis. Pelvis:[Uterus absent. No adnexal mass.] Bladder unremarkable. Peritoneum/Retroperi toneum:Mild to moderate aortic and mesenteric vascular disease. No free air or free fluid.[ Abd wall/Bones:Degenerat andres changes of the lower lumbar facets.[ CT/CT abdomen pelvis w con IMPRESSION: Negative acute inflammatory or bowel obstruction Impression dictated by: Cameron Worthy M.D.07/30/2024 1:18 PM Dictation Location: [place] [address] Transcribed By: [facility] 07/30/24 1318 Dictated By: Cameron Worthy MD 07/30/24 1314 Signed By: 07/30/24 1318 Normal [facility] Creatinineon 07-30-2024 Creatinine [Mass/Vol] 0.85 mg/dL Normal 0.60-1.20 [facility] Comment on above: Order Comment: STAT FOR CT Performed By: #### B UN, CREAT #### [facility] [address] [place] [address] GFR/1.73 sq M.predicted MDRD (S/P/Bld) [Vol rate/Area] mL/min/{1.73_m2} Normal [facility] Comment on above: Order Comment: STAT FOR CT Result Comment: PERF ORMED BY: [place] [address] PATHOLOGIST EDUCATION PROGRAM COORDINATOR JERRI ROMERO M.D. Performed By: #### B UN, CREAT #### [facility] [address] [place] [address] Creatinine [Mass/volume] in Serum or PlasmaOrdered By: Carol Alegria on 07-30-2024 Creatinine [Mass/Vol] Creatinine [Mass/volume] in Serum or Plasma 0.60-1.20 [facility] No Panel InformationOrdered By: Carol Alegria on 07-30-2024 Estimated GFR (CKD-EPI) > 60.0 mL/Min [facility] Creatinine Clearance (Chem N/A [facility] Urea nitrogen [Mass/volume] in Serum or PlasmaOrdered By: Carol Alegria on 03-12-2025 Urea nitrogen [Mass/Vol] Urea nitrogen [Mass/volume] in Serum or Plasma 7 [facility] Basophils Auto (Bld) [#/Vol] on 03-20-2024 Basophils (Bld) [#/Vol] 0.1 10 3/uL 0.0-0.1 [facility] Basophils (Bld) [#/Vol] Automated basoph il count 0.0-0.1 [facility] Basophils/100 WBC Auto (Bld) on 03-20-2024 Basophils/100 WBC (Bld) 0.9 % 0.2-2.0 [facility] Basophils/100 WBC (Bld) Automated basophil % 0. 2-2.0 [facility] Cholesterol in LDL Calc [Mas s/Vol]on 03-20-2024 Cholesterol in LDL [Mass/Vol] 87.0 mg/dL [facility] Comment on above: <100 mg/dl [id number] 0-129 mg/dl NEAR OR ABOVE [id number] mg/dl BORDERLINE [id number] mg/dl HIGH>190 mg/dl VERY HIGH Cholesterol in LDL [Mass/Vol] Cholesterol in LDL [Mass/volume] in Serum or Plasma by calculation [facility] Comment on above: <100 mg/dl [id number] 0-129 mg/dl NEAR OR ABOVE [id number] mg/dl BORDERLINE [id number] mg/dl HIGH>190 mg/dl VERY HIGH Cholesterol in VLDL Calc [Ma ss/Vol]on 03-20-2024 Cholesterol in VLDL [Mass/Vol] 15.0 mg/dL [facility] Cholesterol in VLDL [Mass/Vol] Cholesterol in VLDL [Mass/volume] in Serum or Plasma by calculation [facility] Eosinophils/100 WBC Auto (Bl d)on 03-20-2024 Eosinophils/100 WBC (Bld) 3.3 % 0.9-7.0 [facility] Eosinophils/100 WBC (Bld) Automated eosinophil % 0.9-7.0 [facility] Erythrocyte distribution wid th Auto (RBC) [Ratio]on 03-20-2024 Erythrocyte distribution width (RBC) [Ratio] 12.4 % 11.0-15.0 [facility] Erythrocyte distribution width (RBC) [Ratio] Erythrocyte distribution width [Ratio] by Automated count 11.0-15.0 [facility] Estimated glomerular filtrat ion rate (GFR) non- Americanon 03-20-2024 GFR/1.73 sq M.predicted among non-blacks MDRD (S/P/Bld) [Vol rate/Area] mL/min/{1.73_m2} >=60 mL/min/1.73m 2 [facility] GFR/1.73 sq M.predicted among non-blacks MDRD (S/P/Bld) [Vol rate/Area] Estimated glomerular filtration rate (GFR) non- >=60 mL/min/1.73m 2 [facility] Globulin Calc (S) [Mass/Vol] on 03-20-2024 Globulin (S) [Mass/Vol] 3.3 g/dL [facility] Globulin (S) [Mass/Vol] Serum globulin measurement by calculation (mass/volume) [facility] Glucose mean value [Mass/vol ume] in Blood Estimated from glycated hemoglobinon 03-20-2024 Average glucose Estimated from glycated hemoglobin (Bld) [Mass/Vol] 140 mg/dL [facility] Average glucose Estimated from glycated hemoglobin (Bld) [Mass/Vol] Glucose mean value [Mass/volume] in Blood Estimated from glycated hemoglobin [facility] Hematocrit Auto (Bld) [Volum e fraction]on 03-20-2024 Hematocrit (Bld) [Volume fraction] 39.9 % 36.0-48.0 [facility] Hematocrit (Bld) [Volume fraction] Hematocrit [Volume Fraction] of Blood by Automated count 36.0-48.0 [facility] Hemoglobin [Mass/volume] in Bloodon 03-20-2024 Hemoglobin (Bld) [Mass/Vol] 13.2 g/dL 12.0-16.0 [facility] Hemoglobin (Bld) [Mass/Vol] Hemoglobin [Mass/volume] in Blood 12.0-16.0 [facility] Laboratory - Chemistry and C hemistry - challengeon 03-20-2024 Albumin [Mass/Vol] 3.3 g/dL Low 3.4-5.0 [facility] ALP [Catalytic activity/Vol] 72 U/L 46-116 [facility] ALT [Catalytic activity/Vol] 22 U/L 14-59 [facility] AST [Catalytic activity/Vol] 11 U/L Low 15-37 [facility] Bilirubin [Mass/Vol] 0.4 mg/dL 0.2-1.0 [facility] Calcium [Mass/Vol] 9.0 mg/dL 8.5-10.1 [facility] Chloride [Moles/Vol] 105 mmol/L 98-107 [facility] Cholesterol [Mass/Vol] 174 mg/dL <=200 Fi [facility] Cholesterol in HDL [Mass/Vol] 72 mg/dL High 40-60 [facility] Comment on above: > or =60 mg/dl - LOW CARDIOVASCULAR RISK<40 mg/dl - HIGH CARDIOVASCULAR RISK CO2 [Moles/Vol] 28.6 mmol/L 21.0-32.0 [facility] Creatinine [Mass/Vol] 0.89 mg/dL 0.55-1.02 [facility] Free T4 [Mass/Vol] 1.53 ng/dL High 0.76-1.46 [facility] GFR/1.73 sq M.predicted MDRD (S/P/Bld) [Vol rate/Area] mL/min/{1.73_m2} >=60 mL/min/1.73m 2 [facility] Glucose [Mass/Vol] 119 mg/dL High 74-106 [facility] Potassium [Moles/Vol] 4.1 mmol/L 3.5-5.1 [facility] Protein [Mass/Vol] 6.6 g/dL 6.4-8.2 [facility] Sodium [Moles/Vol] 143 mmol/L 136-145 [facility] Triglyceride [Mass/Vol] 75 mg/dL <=150 F [facility] TSH Qn 1.000 m[IU]/L 0.358-3.740 [facility] Urea nitrogen [Mass/Vol] 18.0 mg/dL 7.0-18.0 [facility] Urea nitrogen/Creatinine [Mass ratio] 20.2 mg/mg [facility] Laboratory - Hematology and Cell countson 03-20-2024 HbA1c (Bld) [Mass fraction] 6.5 % High 4.5-6.2 [facility] Comment on above: ADA RECOMMENDED LIMI T 4.0 - 6.0ADA THERAPEUTIC TARGET < 7.0ACTION SUGGESTED> 7.0 Immature granulocytes/100 WBC (Bld) 0.2 % 0.0-0.5 [facility] Leukocytes [#/volume] correc reilly for nucleated erythrocytes in Blood by Automated counon 03-20-2024 WBC corrected for nucl RBC Auto (Bld) [#/Vol] 8.5 10 3/uL 4.0-11.0 [facility] WBC corrected for nucl RBC Auto (Bld) [#/Vol] Leukocytes [#/volume] corrected for nucleated erythrocytes in Blood by Automated coun 4.0-11.0 [facility] Lymphocytes Auto (Bld) [#/Vo l]on 03-20-2024 Lymphocytes (Bld) [#/Vol] 2.3 10 3/uL 1.2-3.8 [facility] Lymphocytes (Bld) [#/Vol] Lymphocytes [#/volume] in Blood by Automated count 1.2-3.8 [facility] Lymphocytes/100 WBC Auto (Bl d)on 03-20-2024 Lymphocytes/100 WBC (Bld) 26.5 % 20.5-60.0 [facility] Lymphocytes/100 WBC (Bld) Lymphocytes/100 leukocytes in Blood by Automated count 20.5-60.0 [facility] MCH Auto (RBC) [Entitic mass ]on 03-20-2024 MCH (RBC) [Entitic mass] 31.0 pg 26.7-34.0 [facility] MCH (RBC) [Entitic mass] MCH [Entitic mass] by Automated count 26.7-34.0 [facility] MCHC Auto (RBC) [Mass/Vol]on 03-20-2024 MCHC (RBC) [Mass/Vol] 33.1 g/dL 29.9-35.2 [facility] MCHC (RBC) [Mass/Vol] MCHC [Mass/volume] by Automated count 29.9-35.2 [facility] MCV Auto (RBC) [Entitic vol] on 10-31-2024 MCV (RBC) [Entitic vol] 93.7 fL 81.0-99.0 [facility] MCV (RBC) [Entitic vol] MCV [Entitic vol ume] by Automated count 81.0-99.0 [facility] Monocytes Auto (Bld) [#/Vol] on 03-20-2024 Monocytes (Bld) [#/Vol] 0.6 10 3/uL 0.3-0.8 [facility] Monocytes (Bld) [#/Vol] Automated blood monocyte count 0.3-0.8 [facility] Monocytes/100 WBC Auto (Bld) on 03-20-2024 Monocytes/100 WBC (Bld) 6.4 % 1.7-12.0 [facility] Monocytes/100 WBC (Bld) Automated monocyte % 1. 7-12.0 [facility] Neutrophils Auto (Bld) [#/Vo l]on 03-20-2024 Neutrophils (Bld) [#/Vol] 5.4 10 3/uL 1.4-6.5 [facility] Neutrophils (Bld) [#/Vol] Neutrophils [#/volume] in Blood by Automated count 1.4-6.5 [facility] Neutrophils/100 WBC Auto (Bl d)on 03-20-2024 Neutrophils/100 WBC (Bld) 62.7 % 43.0-75.0 [facility] Neutrophils/100 WBC (Bld) Automated neutrophil % 43.0-75.0 [facility] No Panel Informationon 03-20 25-Hydroxy Vitamin D Total 36.0 ng/mL [facility] Comment on above: <20 ng/mL Vit D defi cient20-<30 ng/mL Vit D [id number] ng/mL Vit D sufficient>100 ng/mL Potential Toxicity Eosinophils # (Auto) 0.3 10 3/uL 0.0-0.7 [facility] Immature Granulocyte # (Auto) 0.02 10 3/uL 0.00-0.03 [facility] Total Triiodothyronine 99 ng/dL 71-180 [facility] Comment on above: Performed at: [address] [id number] Director: Giuseppe Newell PhD, Phone: [phone] Platelet mean volume Auto (B ld) [Entitic vol]on 03-20-2024 Platelet mean volume (Bld) [Entitic vol] 9.5 fL 9.5-13.5 [facility] Platelet mean volume (Bld) [Entitic vol] Platelet mean volume [Entitic volume] in Blood by Automated count 9.5-13.5 [facility] Platelets Auto (Bld) [#/Vol] on 03-20-2024 Platelets (Bld) [#/Vol] 364 10 3/uL 150-450 [facility] Platelets (Bld) [#/Vol] Platelets [#/vol ume] in Blood by Automated count 150-450 [facility] RBC Auto (Bld) [#/Vol]on RBC (Bld) [#/Vol] 4.26 10 6/uL 4.20-5.40 [facility] RBC (Bld) [#/Vol] Erythrocytes [#/volume] in Blood by Automated count 4.20-5.40 [facility] Serum or plasma albumin/glob ulin mass ratioon 03-20-2024 Albumin/Globulin [Mass ratio] 1.0 {ratio} [facility] Albumin/Globulin [Mass ratio] Serum or plasma albumin/globulin mass ratio [facility] Serum or plasma anion gap de terminationon 03-20-2024 Anion gap [Moles/Vol] 13.5 [facility] Anion gap [Moles/Vol] Serum or plasma anion gap determination [facility] Serum or plasma total choles terol/high density lipoprotein (HDL) cholesterol mass constantin 03-20-2024 Cholesterol.total/Haylie sterol in HDL [Mass ratio] 2.4 {ratio} [facility] Comment on above: 3.3 - 4.4 LOW RISK4. 4 - 7.1 AVERAGE RISK7.1 - 11.0 MODERATE RISK>11.0 HIGH RISK Cholesterol.total/Haylie sterol in HDL [Mass ratio] Serum or plasma total cholesterol/high density lipoprotein (HDL) cholesterol mass rat [facility] Comment on above: 3.3 - 4.4 [...] from 5-10 stools per day type on [place] stool scale form, urgent and explosive to [...] water, # 120 tabs, 0 Refill(s), Pharmacy: [id number] esomeprazole, 1 caps, Oral, BID, # 180 caps, 0 Refill(s), Pharmacy: [id number] ondansetron, 1 tabs, Oral, q8hr, PRN, # 60 tabs, 0 Refill(s), Pharmacy: [id number] polyethylene glycol 3350 with electrolytes, See Instructions, for colonoscopy prep, # 4,000 mL, 0 Refill(s), Pharmacy: [id number] 1. Diarrhea s/p cholecystectomy - check [...] of adequate bowel prep and need for driver examiner to accompany day of procedure, verbalizes understanding. 2. GERD - not controlled on daily PPI, increase to BID - zofran ok for nausea - check NM GES to r/o motility dysfunction - check EGD to ro PUD, HH, BE, gastritis/esophagiti s - enc. weight loss, avoid supine position [...] reviewed the patient?s medication list for medication interactions/contrai ndications and/or for upcoming procedures: [yes or no] Time Spent with the Patient I have personally spent [] minutes on this date, directly related to today's patient visit, including pre and post visit work, for this date of service. Time listed does not include time spent on separately billable services. Problem List/Past Medical History Ongoing Asthma Endometriosis Fibromyalg (more content not included)... Normal [facility] XR hips BI 4V adulton 2023 XR hips BI 4V adult [place] [id number] XRay Report Signed Patient: Canelo Pathak MR#: [id number] 4 : 1965 Acct:[id number] Age/Sex: 58 / F ADM Date: 12/05/23 Loc: XD Room: Type: [facility] Attending Dr: Logan Brown MD Copies to: [...] Omid Seals M.D.12/05/2023 5:09 PM Dictation Location: [place] [address] Transcribed By: [facility] 12/05/231708 Dictated By: Omid Seals DO 12/05/231707 Signed By: 12/05/231708 Normal [facility] XR lumbar spine AP/LAT/FLX/E XTon 12-05-2023 XR lumbar spine AP/LAT/FLX/EXT [address] [address] XRay Report Signed Patient: Canelo Pathak MR#: [id number] 4 : 1965 Acct:[id number] Age/Sex: 58 / F ADM Date: 12/05/23 Loc: XD Room: Type: [facility] Attending Dr: Logan Brown MD Copies to: [...] Moderate facet degeneration SOFT TISSUES: Unremarkable BONY MINERALIZATION:Adequ ate XR/XR lumbar spine AP/LAT/FLX/EXT IMPRESSION: No hypermobility. Degenerative change. Impression dictated by: Omid Seals M.D.12/05/2023 5:08 PM Dictation Location: [place] [address] Transcribed By: [facility] 12/05/231707 Dictated By: Omid Seals DO 12/05/231705 Signed By: 12/05/231707 Normal [facility] Estimated glomerular filtrat ion rate (GFR) non- Americanon 10-25-2023 GFR/1.73 sq M.predicted among non-blacks MDRD (S/P/Bld) [Vol rate/Area] mL/min/{1.73_m2} >=60 [facility] Laboratory - Chemistry and C hemistry - challengeon 10-25-2023 Calcium [Mass/Vol] 9.3 mg/dL 8.5-10.1 [facility] Chloride [Moles/Vol] 103 mmol/L 98-107 [facility] CO2 [Moles/Vol] 29.7 mmol/L 21.0-32.0 [facility] Creatinine [Mass/Vol] 0.88 mg/dL 0.55-1.02 [facility] Free T4 [Mass/Vol] 1.33 ng/dL 0.76-1.46 [facility] GFR/1.73 sq M.predicted MDRD (S/P/Bld) [Vol rate/Area] mL/min/{1.73_m2} >=60 [facility] Glucose [Mass/Vol] 121 mg/dL High 74-106 [facility] Potassium [Moles/Vol] 4.4 mmol/L 3.5-5.1 [facility] Sodium [Moles/Vol] 140 mmol/L 136-145 [facility] TSH Qn 5.994 m[IU]/L High 0.358-3.740 [facility] Urea nitrogen [Mass/Vol] 18.0 mg/dL 7.0-18.0 [facility] Urea nitrogen/Creatinine [Mass ratio] 20.5 mg/mg [facility] No Panel Informationon 10-24 Total Triiodothyronine 100 ng/dL 71-180 [facility] Comment on above: Performed at: [address] Director: Giuseppe Newell PhD, Phone: [phone] Serum or plasma anion gap de terminationon 10-25-2023 Anion gap [Moles/Vol] 11.7 mmol/L [facility] [facility] Patient Correspondenceon Patient Correspondence [id number] [facility] [id number] #1.00TIFF Normal [facility] Automated epithelial cells c ount in urine sediment (number/area)on 08-23-2023 Epithelial cells Auto (Urine sed) [#/Area] RARE #/LPF NONE/RARE [facility] Automated leukocytes count i n urine sediment (number/area)on 08-23-2023 WBC Auto (Urine sed) [#/Area] 0-2 #/HPF 0-2 [facility] Automated urine specific gra vity by refractometryon 08-23-2023 Specific gravity Refractometry automated (U) [Rel density] >=1.030 1.005-1.025 [facility] Basophils Auto (Bld) [#/Vol] on 08-23-2023 Basophils (Bld) [#/Vol] 0.1 10 3/uL 0.0-0.1 [facility] Basophils/100 WBC Auto (Bld) on 08-23-2023 Basophils/100 WBC (Bld) 1.4 % 0.2-2.0 [facility] Bilirubin Auto test strip (U ) [Mass/Vol]on 08-23-2023 Bilirubin (U) [Mass/Vol] Negative NEGATIVE [facility] Casts typing in urine sedime nt by light microscopyon 08-23-2023 Casts LM Nom (Urine sed) NONE SEEN #/LPF NONE SEEN [facility] Cholesterol in LDL Calc [Mas s/Vol]on 08-23-2023 Cholesterol in LDL [Mass/Vol] 101.0 mg/dL [facility] Comment on above: <100 mg/dl [id number] 0-129 mg/dl NEAR OR ABOVE EWAYSOK118-701 mg/dl BORDERLINE FIOM956-387 mg/dl HIGH>190 mg/dl VERY HIGH Cholesterol in VLDL Calc [Ma ss/Vol]on 08-23-2023 Cholesterol in VLDL [Mass/Vol] 25.0 mg/dL [facility] Color Auto (U)on 08-23-2023 Color (U) YELLOW YELLOW [facility] Eosinophils/100 WBC Auto (Bl d)on 08-23-2023 Eosinophils/100 WBC (Bld) 5.2 % 0.9-7.0 [facility] Erythrocyte distribution wid th Auto (RBC) [Ratio]on 08-23-2023 Erythrocyte distribution width (RBC) [Ratio] 12.1 % 11.0-15.0 [facility] Estimated glomerular filtrat ion rate (GFR) non- Americanon 08-23-2023 GFR/1.73 sq M.predicted among non-blacks MDRD (S/P/Bld) [Vol rate/Area] mL/min/{1.73_m2} >=60 [facility] Globulin Calc (S) [Mass/Vol] on 08-23-2023 Globulin (S) [Mass/Vol] 3.3 g/dL [facility] Glucose mean value [Mass/vol ume] in Blood Estimated from glycated hemoglobinon 08-23-2023 Average glucose Estimated from glycated hemoglobin (Bld) [Mass/Vol] 143 mg/dL [facility] Hematocrit Auto (Bld) [Volum e fraction]on 08-23-2023 Hematocrit (Bld) [Volume fraction] 41.2 % 36.0-48.0 [facility] Hemoglobin [Mass/volume] in Bloodon 08-23-2023 Hemoglobin (Bld) [Mass/Vol] 13.6 g/dL 12.0-16.0 [facility] Ketones Auto test strip (U) [Mass/Vol]on 08-23-2023 Ketones (U) [Mass/Vol] Negative NEGATIVE [facility] Laboratory - Chemistry and C hemistry - challengeon 08-23-2023 Albumin [Mass/Vol] 3.8 g/dL 3.4-5.0 [facility] ALP [Catalytic activity/Vol] 72 U/L 46-116 [facility] ALT [Catalytic activity/Vol] 25 U/L 14-59 [facility] AST [Catalytic activity/Vol] 14 U/L 15-37 [facility] Bilirubin [Mass/Vol] 0.5 mg/dL 0.2-1.0 [facility] Calcium [Mass/Vol] 9.1 mg/dL 8.5-10.1 [facility] Chloride [Moles/Vol] 103 mmol/L 98-107 [facility] Cholesterol [Mass/Vol] 193 mg/dL <=200 [facility] Cholesterol in HDL [Mass/Vol] 67 mg/dL 40-60 [facility] Comment on above: > or =60 mg/dl - LOW CARDIOVASCULAR RISK<40 mg/dl - HIGH CARDIOVASCULAR RISK CO2 [Moles/Vol] 28.7 mmol/L 21.0-32.0 [facility] Creatinine [Mass/Vol] 0.77 mg/dL 0.55-1.02 [facility] Free T4 [Mass/Vol] 1.11 ng/dL 0.76-1.46 [facility] GFR/1.73 sq M.predicted MDRD (S/P/Bld) [Vol rate/Area] mL/min/{1.73_m2} >=60 [facility] Glucose [Mass/Vol] 117 mg/dL 74-106 [facility] Potassium [Moles/Vol] 4.2 mmol/L 3.5-5.1 [facility] Protein [Mass/Vol] 7.1 g/dL 6.4-8.2 [facility] Sodium [Moles/Vol] 142 mmol/L 136-145 [facility] Triglyceride [Mass/Vol] 125 mg/dL <=150 [facility] TSH Qn 18.751 m[IU]/L 0.358-3.740 [facility] Urea nitrogen [Mass/Vol] 19.0 mg/dL 7.0-18.0 [facility] Urea nitrogen/Creatinine [Mass ratio] 24.7 mg/mg [facility] Laboratory - Hematology and Cell countson 08-23-2023 HbA1c (Bld) [Mass fraction] 6.6 % 4.5-6.2 [facility] Comment on above: ADA RECOMMENDED LIMI T 4.0 - 6.0ADA THERAPEUTIC TARGET < 7.0ACTION SUGGESTED> 7.0 Immature granulocytes/100 WBC (Bld) 0.3 % 0.0-0.5 [facility] Leukocytes [#/volume] correc reilly for nucleated erythrocytes in Blood by Automated counon 08-23-2023 WBC corrected for nucl RBC Auto (Bld) [#/Vol] 7.4 10 3/uL 4.0-11.0 [facility] Lymphocytes Auto (Bld) [#/Vo l]on 08-23-2023 Lymphocytes (Bld) [#/Vol] 2.2 10 3/uL 1.2-3.8 [facility] Lymphocytes/100 WBC Auto (Bl d)on 08-23-2023 Lymphocytes/100 WBC (Bld) 29.7 % 20.5-60.0 [facility] MCH Auto (RBC) [Entitic mass ]on 08-23-2023 MCH (RBC) [Entitic mass] 31.3 pg 26.7-34.0 [facility] MCHC Auto (RBC) [Mass/Vol]on 08-23-2023 MCHC (RBC) [Mass/Vol] 33.0 g/dL 29.9-35.2 [facility] MCV Auto (RBC) [Entitic vol] on 08-23-2023 MCV (RBC) [Entitic vol] 94.7 fL 81.0-99.0 [facility] Monocytes Auto (Bld) [#/Vol] on 08-23-2023 Monocytes (Bld) [#/Vol] 0.5 10 3/uL 0.3-0.8 [facility] Monocytes/100 WBC Auto (Bld) on 08-23-2023 Monocytes/100 WBC (Bld) 6.4 % 1.7-12.0 [facility] Mucus LM Ql (Urine sed)on Mucus Ql (Urine sed) MODERATE NONE SEEN [facility] Neutrophils Auto (Bld) [#/Vo l]on 08-23-2023 Neutrophils (Bld) [#/Vol] 4.2 10 3/uL 1.4-6.5 [facility] Neutrophils/100 WBC Auto (Bl d)on 08-23-2023 Neutrophils/100 WBC (Bld) 57.0 % 43.0-75.0 [facility] No Panel Informationon 08-22 25-Hydroxy Vitamin D Total 35.2 ng/mL [facility] Comment on above: <20 ng/mL Vit D defi cient20-<30 ng/mL Vit D zlzfatrkmynp40-196 ng/mL Vit D sufficient>100 ng/mL Potential Toxicity Eosinophils # (Auto) 0.4 10 3/uL 0.0-0.7 [facility] Free Triiodothyronine 1.94 pg/mL 2.18-3.98 [facility] Immature Granulocyte # (Auto) 0.02 10 3/uL 0.00-0.03 [facility] Platelet mean volume Auto (B ld) [Entitic vol]on 08-23-2023 Platelet mean volume (Bld) [Entitic vol] 9.7 fL 9.5-13.5 [facility] Platelets Auto (Bld) [#/Vol] on 08-23-2023 Platelets (Bld) [#/Vol] 347 10 3/uL 150-450 [facility] Protein Auto test strip (U) [Mass/Vol]on 08-23-2023 Protein (U) [Mass/Vol] Negative NEG/TRACE [facility] RBC Auto (Bld) [#/Vol]on RBC (Bld) [#/Vol] 4.35 10 6/uL 4.20-5.40 [facility] Serum or plasma albumin/glob ulin mass ratioon 08-23-2023 Albumin/Globulin [Mass ratio] 1.2 {ratio} [facility] Serum or plasma anion gap de terminationon 08-23-2023 Anion gap [Moles/Vol] 14.5 mmol/L [facility] Serum or plasma total choles terol/high density lipoprotein (HDL) cholesterol mass constantin 08-23-2023 Cholesterol.total/Haylie sterol in HDL [Mass ratio] 2.9 {ratio} [facility] Comment on above: 3.3 - 4.4 LOW RISK4. 4 - 7.1 AVERAGE RISK7.1 - 11.0 MODERATE RISK>11.0 HIGH RISK Specific gravity Auto test s trip (U) [Rel density]on 08-23-2023 Specific gravity (U) [Rel density] CLEAR CLEAR [facility] Urine bacteria detection by automated methodon 08-23-2023 Bacteria Auto Ql (U) NONE SEEN #/HPF NONE SEEN [facility] Urine glucose measurement by test strip (mass/volume)on 08-23-2023 Glucose Test strip (U) [Mass/Vol] Negative NEGATIVE [facility] Urine hemoglobin detection b y automated test stripon 08-23-2023 Hemoglobin Auto test strip Ql (U) Negative NEGATIVE [facility] Urine nitrite detection by a utomated test stripon 08-23-2023 Nitrite Auto test strip Ql (U) Negative NEGATIVE [facility] Urine sediment crystal ident ification by light microscopyon 08-23-2023 Crystals LM Nom (Urine sed) None Seen #/HPF None Seen [facility] Urine sediment leukocyte cou nt by microscopy (number/high power field)on 08-23-2023 WBC LM.HPF (Urine sed) [#/Area] 0-2 #/HPF NONE SEEN [facility] Urobilinogen Auto test strip (U) [Mass/Vol]on 08-23-2023 Urobilinogen Qn (U) 0.2 {David'U}/dL 0.2-1.0 [facility] pH Auto test strip (U)on pH (U) 5.5 [pH] 5.0-9.0 [facility] Patient Correspondenceon Patient Correspondence [id number] 2#1.00TIFF Normal [facility] Insurance Correspondence Off iceon 05-16-2023 Insurance Correspondence Office [id number] 1#1.00TIFF Normal [facility] Consent for Treatmenton 04-21 Consent for Treatment [id number] 2#1.00TIFF Normal [facility] Consultation Noteon 05-10-20 Consultation Note Patient: CANELO PATHAK Age: 57 years Sex: Female : [...] She has tried conservative measures inclusive of jzxa-xrs-msjvstu medications and prescription medications inclusive of meloxicam, [...] Histories Past Medical History: Active Acid reflux (160045930) Asthma (555001303) Hypothyroid (003308932) Family History: No family history items have been selected or recorded. Procedure history: Myringotomy and insertion of T tube (796699388). Comments: 02/22/2011 10:22 ERKHA - Trixie HART, Sommer x2 Tonsillectomy ([id number]). Cholecystectomy (21189155). Laparoscopy (153782873). Abdominal hysterectomy (746943260). Physical Examination Vital Signs (last 24 hrs) Last Charted Heart Rate Peripheral 81 bpm (MAY 10 14:10) SBP H 162mmHg (MAY 10:) DBP H 90mmHg (MAY 10:) Weight 123.7 kg (MAY 10:) BMI 44.89 (MAY 10:) General: No acute [...] patient, who voiced (more content not included)... [facility] Comment on above: Result Comment: Elec tronically Signed By: Casper Nguyen DO.br\Date and Time Signed: 05/10/23 15:07 EST HIPAA Forms Officeon 023 HIPAA Forms Office [id number] #1.00TIFF [facility] Legal Correspondence Officeo n 05-10-2023 Legal Correspondence Office [id number] #1.00TIFF [facility] Legal Correspondence Office [id number] #1.00TIFF Normal [facility] Office/Clinic Note-Physician on 05-10-2023 Office/Clinic Note-Physician [id number] #1.00TIFF Normal [facility] Patient Correspondenceon Patient Correspondence [id number] #1.00TIFF Normal [facility] Patient Correspondence [id number] #1.00TIFF Normal [facility] Patient Correspondence [id number] #1.00TIFF Normal [facility] Patient Correspondence [id number] #1.00TIFF Normal [facility] Patient Correspondence [id number] #1.00TIFF Normal [facility] Patient History Officeon Patient History Office [id number] #1.00TIFF Normal [facility] Outside Records Officeon Outside Records Office [id number] 4#1.00TIFF Normal [facility] Radiology Outside Office Resident Doctor yon 05-07-2023 Radiology Outside Office Copy [id number] 1#1.00TIFF Normal [facility] Referrals Officeon 3 Referrals Office [id number] 1#1.00TIFF Normal [facility] MR LUMBAR SPINE WO CONTRASTo n 04-24-2023 [...] 09-08-2022 BASO # 0.1 103/ul Normal 0.0-0.1 [facility] Comment on above: Performed By: #### F T3, CMP, LIPID, TSH #### [facility] [address], [place] [address] Dr. Gin Chew Basophils/100 WBC (Bld) 0.9 % Normal 0.2-2.0 [facility] Comment on above: Performed By: #### F T3, CMP, LIPID, TSH #### [facility] [address], [place] [address] Dr. Gin Chew EO # 0.5 103/ul Normal 0.0-0.7 [facility] Comment on above: Performed By: #### F T3, CMP, LIPID, TSH #### [facility] [address] [place] [address] [address] Gin Chew Eosinophils/100 WBC (Bld) 5.8 % Normal 0.9-7.0 [facility] Comment on above: Performed By: #### F T3, CMP, LIPID, TSH #### [facility] [address] [place] [address] [address] Gin Chew Erythrocyte distribution width (RBC) [Ratio] 13.0 % Normal 11.0-15.0 [facility] Comment on above: Performed By: #### F T3, CMP, LIPID, TSH #### [facility] [address] [place] [address] Dr. Gin Chew Hematocrit (Bld) [Volume fraction] 39.7 % Normal 36.0-48.0 [facility] Comment on above: Performed By: #### F T3, CMP, LIPID, TSH #### [facility] [address] [place] [address] Dr. Gin Chew Hemoglobin (Bld) [Mass/Vol] 13.2 g/dL Normal 12.0-16.0 [facility] Comment on above: Performed By: #### F T3, CMP, LIPID, TSH #### [facility] [address] [place] [address] Dr. Gin Chew IG # 0.05 10e3/ul Critically high 0.00-0.03 [facility] Comment on above: Performed By: #### F T3, CMP, LIPID, TSH #### [facility] [address] [place] [address] Dr. Gin Chew IG % 0.6 % Critically high 0.0-0.5 [facility] Comment on above: Performed By: #### F T3, CMP, LIPID, TSH #### [facility] [address] [place] [address] Dr. Gin Chew LYMPH # 2.1 103/ul Normal 1.2-3.8 [facility] Comment on above: Performed By: #### F T3, CMP, LIPID, TSH #### [facility] [address] [place] [address] Dr. Gin Chew Lymphocytes/100 WBC (Bld) 27.4 % Normal 20.5-60.0 [facility] Comment on above: Performed By: #### F T3, CMP, LIPID, TSH #### [facility] [address] [place] [address] Dr. Gin Chew MANUAL DIFF REQ NO Normal [facility] Comment on above: Performed By: #### F T3, CMP, LIPID, TSH #### [facility] [address] [place] [address] Dr. Gin Chew MCH (RBC) [Entitic mass] 30.9 pg Normal 26.7-34.0 [facility] Comment on above: Performed By: #### F T3, CMP, LIPID, TSH #### [facility] [address] [place] [address] Dr. Gin Chew MCHC (RBC) [Mass/Vol] 33.2 g/dL Normal 29.9-35.2 [facility] Comment on above: Performed By: #### F T3, CMP, LIPID, TSH #### [facility] [address] [place] [address] Dr. Gin Chew MCV (RBC) [Entitic vol] 93.0 fL Normal 81.0-99.0 [facility] Comment on above: Performed By: #### F T3, CMP, LIPID, TSH #### [facility] [address] [place] [address] Dr. Gin Chew MONO # 0.6 103/ul Normal 0.3-0.8 [facility] Comment on above: Performed By: #### F T3, CMP, LIPID, TSH #### [facility] [address] [place] [address] Dr. Gin Chew Monocytes/100 WBC (Bld) 7.1 % Normal 1.7-12.0 [facility] Comment on above: Performed By: #### F T3, CMP, LIPID, TSH #### [facility] [address] [place] [address] Dr. Gin Chew NEUT # 4.5 103/ul Normal 1.4-6.5 [facility] Comment on above: Performed By: #### F T3, CMP, LIPID, TSH #### [facility] [address] [place] [address] [address] Gin Chew Neutrophils/100 WBC (Bld) 58.2 % Normal 43.0-75.0 [facility] Comment on above: Performed By: #### F T3, CMP, LIPID, TSH #### [facility] [address] [place] [address] Dr. Gin Chew Platelet mean volume (Bld) [Entitic vol] 9.7 fL Normal 9.5-13.5 [facility] Comment on above: Performed By: #### F T3, CMP, LIPID, TSH #### [facility] [address] [place] [address] Dr. Gin Chew PLT 339 103/ul Normal 150-450 [facility] Comment on above: Performed By: #### F T3, CMP, LIPID, TSH #### [facility] [address] [place] [address] Dr. Gin Chew RBC 4.27 106/ul Normal 4.20-5.40 [facility] Comment on above: Performed By: #### F T3, CMP, LIPID, TSH #### [facility] [address] [place] [address] Dr. Gin Chew WBC 7.7 103/ul Normal 4.0-11.0 [facility] Comment on above: Performed By: #### F T3, CMP, LIPID, TSH #### [facility] [address] [place] [address] Dr. Gin Chew PROF CHEM 8 (BAS METB)on Anion gap [Moles/Vol] 9.4 mmol/L Normal [facility] Comment on above: Performed By: #### F T3, CMP, LIPID, TSH #### [facility] [address] [place] [address] Dr. Gin Chew Calcium [Mass/Vol] 9.1 mg/dL Normal 8.5-10.1 [facility] Comment on above: Performed By: #### F T3, CMP, LIPID, TSH #### [facility] [address] [place] [address] [address] Gin Chew Chloride [Moles/Vol] 104 mmol/L Normal 98-107 [facility] Comment on above: Performed By: #### F T3, CMP, LIPID, TSH #### [facility] [address] [place] [address] [address] Gin Chew CO2 [Moles/Vol] 31.7 mmol/L Normal 21.0-32.0 [facility] Comment on above: Performed By: #### F T3, CMP, LIPID, TSH #### [facility] [address] [place] [address] Dr. Gin Chew Creatinine [Mass/Vol] 0.77 mg/dL Normal 0.55-1.02 [facility] Comment on above: Performed By: #### F T3, CMP, LIPID, TSH #### [facility] [address] [place] [address] Dr. Gin Chew EGFR-AF WELSH >60 Normal >=60 [facility] Comment on above: Performed By: #### F T3, CMP, LIPID, TSH #### [facility] [address] [place] [address] Dr. Gin Chew EGFR-NON AF WELSH >60 Normal >=60 [facility] Comment on above: Performed By: #### F T3, CMP, LIPID, TSH #### [facility] [address] [place] [address] [address] Gin Chew Glucose [Mass/Vol] 143 mg/dL Critically high 74-106 [facility] Comment on above: Performed By: #### F T3, CMP, LIPID, TSH #### [facility] [address] [place] [address] Dr. Gin Chew Potassium [Moles/Vol] 4.1 mmol/L Normal 3.5-5.1 [facility] Comment on above: Performed By: #### F T3, CMP, LIPID, TSH #### [facility] [address] [place] [address] Dr. Gin Chew Sodium [Moles/Vol] 141 mmol/L Normal 136-145 [facility] Comment on above: Performed By: #### F T3, CMP, LIPID, TSH #### [facility] [address] [place] [address] [address] Gin Chew Urea nitrogen [Mass/Vol] 19.0 mg/dL Critically high 7.0-18.0 [facility] Comment on above: Performed By: #### F T3, CMP, LIPID, TSH #### [facility] [address] [id number] [address] Gin Chew Urea nitrogen/Creatinine [Mass ratio] 24.7 mg/mg Normal [facility] Comment on above: Performed By: #### F T3, CMP, LIPID, TSH #### [facility] [address] [place], [place] [address] Dr. Gin Chew XR CHEST 2 Von [...] DURGA DENNIS Date: 2022-09-08 15:53 Normal [facility] CBC W MANUAL DIFFon 08-22-19 23 ANISOCYTOSIS 1+ Normal [facility] Comment on above: Performed By: #### C BCMAN #### [facility] [address] [place], [place] [address] Dr. Gin Chew ATYPICAL LYMPH # Normal [facility] Comment on above: Performed By: #### C BCMAN #### [facility] [address] [place] [address] Dr. Gin Chew ATYPICAL LYMPH % Normal [facility] Comment on above: Performed By: #### C BCMAN #### [facility] [address] [place] [address] [address] Gin Chew BAND # 0.6 103/ul Critically high 0.0-0.3 [facility] Comment on above: Performed By: #### C BCMAN #### [facility] [address] [place] [address] Dr. Gin Chew BAND % 4 % Normal 0-5 [facility] Comment on above: Performed By: #### C BCMAN #### [facility] [address] [place] [address] Dr. Gin Chew BASOM # 0.00 103/ul Normal 0.00-0.10 [facility] Comment on above: Performed By: #### C BCDORIS #### [facility] [address] [place] [address] Dr. Gin Chew BASOM % 0.0 % Critically low 0.2-2.0 [facility] Comment on above: Performed By: #### C BCDORIS #### [facility] [address] [place] [address] Dr. Gin Chew BLAST # Normal [facility] Comment on above: Performed By: #### C TASIA #### [facility] [address] [place] [address] Dr. Gin Chew BLAST % Normal [facility] Comment on above: Performed By: #### C TASIA #### [facility] [address] [place] [address] Dr. Gin Chew CORRECTED WBC Normal 4.0-11.0 [facility] Comment on above: Performed By: #### C BCDORIS #### [facility] [address] [place] [address] Dr. Gin Chew EOS # 0.45 103/ul Normal 0.00-0.70 [facility] Comment on above: Performed By: #### C BCDORIS #### [facility] [address] [place] [address] Dr. Gin Chew EOS% 3.0 % Normal 0.9-7.0 [facility] Comment on above: Performed By: #### C TASIA #### [facility] [address] [place] [address] [address] Gin Chew HCT 43.1 % Normal 36.0-48.0 [facility] Comment on above: Performed By: #### C TASIA #### [facility] [address] [place] [address] [address] Gin Chew HGB 14.4 g/dl Normal 12.0-16.0 [facility] Comment on above: Performed By: #### C TASIA #### [facility] [address] [place] [address] [address] Gin Chew LYMPHM # 3.93 103/ul Critically high 1.20-3.80 [facility] Comment on above: Performed By: #### C TASIA #### [facility] [address] [place] [address] Dr. Gin Chew LYMPHM% 26.0 % Normal 20.5-60.0 [facility] Comment on above: Performed By: #### C TASIA #### [facility] [address] [place] [address] Dr. Gin Chew MCH 31.0 pg Normal 26.7-34.0 [facility] Comment on above: Performed By: #### C TASIA #### [facility] [address] [place] [address] Dr. Gin Chew MCHC 33.4 g/dl Normal 29.9-35.2 [facility] Comment on above: Performed By: #### C TASIA #### [facility] [address] [place] [address] Dr. Gin Chew MCV 92.7 fL Normal 81.0-99.0 [facility] Comment on above: Performed By: #### C TASIA #### [facility] [address] [place] [address] Dr. Gin Chew METAMYELOCYTE # Normal [facility] Comment on above: Performed By: #### C TASIA #### [facility] [address] [place] [address] Dr. Gin Chew METAMYELOCYTE % Normal [facility] Comment on above: Performed By: #### C BCMAN #### [facility] [address] [address] [address] Gin Chew MONOM# 1.06 103/ul Critically high 0.30-0.80 [facility] Comment on above: Performed By: #### C BCMAN #### [facility] [address] [address] [address] Gin Chew MONOM% 7.0 % Normal 1.7-12.0 [facility] Comment on above: Performed By: #### C BCMAN #### [facility] [address] [address] [address] Gin Chew MPV 9.7 fL Normal 9.5-13.5 [facility] Comment on above: Performed By: #### C BCDORIS #### [facility] [address] [place] [address] Dr. Gin Chew MYELOCYTE # Normal [facility] Comment on above: Performed By: #### C BCDORIS #### [facility] [address] [place] [address] Dr. Gin Chew MYELOCYTE % Normal [facility] Comment on above: Performed By: #### C BCDORIS #### [facility] [address] [place] [address] Dr. Gin Chew NRBC Normal [facility] Comment on above: Performed By: #### C TASIA #### [facility] [address] [place] [address] Dr. Gin Chew PLT 372 103/ul Normal 150-450 [facility] Comment on above: Performed By: #### C BCMAN #### [facility] [address] [address] [address] iGn Chew RBC 4.65 106/ul Normal 4.20-5.40 [facility] Comment on above: Performed By: #### C BCDORIS #### [facility] [address] [place] [address] Dr. Gin Chew RDW 13.0 % Normal 11.0-15.0 [facility] Comment on above: Performed By: #### C QUINMAN #### [facility] [address] [place] [address] Dr. Gin Chew SEG # 9.06 103/ul Critically high 1.40-6.50 [facility] Comment on above: Performed By: #### C TASIA #### [facility] [address] [place] [address] Dr. Gin Chew SEG % 60.0 % Normal 43.0-75.0 [facility] Comment on above: Performed By: #### C TASIA #### [facility] [address] [place] [address] Dr. Gin Chew WBC 15.1 103/ul Critically high 4.0-11.0 [facility] Comment on above: Performed By: #### C TASIA #### [facility] [address] [place] [address] Dr. Gin Chew LACTATE/LACTIC ACIDon 2022 Lactate [Moles/Vol] 1.2 mmol/L Normal 0.4-2.[address] [facility] Comment on above: Performed By: #### B MP #### [facility] [address] [place] [address] Dr. Gin Chew PROF CHEM 8 (BAS METB)on Anion gap [Moles/Vol] 11.4 mmol/L Normal [facility] Comment on above: Performed By: #### A 1C #### [facility] [address] [place] [address] Dr. Gin Chew Calcium [Mass/Vol] 9.2 mg/dL Normal 8.5-10.1 [facility] Comment on above: Performed By: #### A 1C #### [facility] [address] [place] [address] Dr. Gin Chew Chloride [Moles/Vol] 102 mmol/L Normal 98-107 [facility] Comment on above: Performed By: #### A 1C #### [facility] [address] [place] [address] Dr. Gin Chew CO2 [Moles/Vol] 31.3 mmol/L Normal 21.0-32.0 [facility] Comment on above: Performed By: #### A 1C #### [facility] [address] [place] [address] Dr. Gin Chew Creatinine [Mass/Vol] 0.86 mg/dL Normal 0.55-1.02 [facility] Comment on above: Performed By: #### A 1C #### [facility] [address] [place] [address] Dr. Gin Chew EGFR-AF WELSH >60 Normal >=60 [facility] Comment on above: Performed By: #### A 1C #### [facility] [address] [place] [address] Dr. Gin Chew EGFR-NON AF WELSH >60 Normal >=60 [facility] Comment on above: Performed By: #### A 1C #### [facility] [address] [place] [address] Dr. Gin Chew Glucose [Mass/Vol] 119 mg/dL Critically high 74-106 [facility] Comment on above: Performed By: #### A 1C #### [facility] [address] [place] [address] Dr. Gin Chew Potassium [Moles/Vol] 3.7 mmol/L Normal 3.5-5.1 [facility] Comment on above: Performed By: #### A 1C #### [facility] [address] [place] [address] Dr. Gin Chew Sodium [Moles/Vol] 141 mmol/L Normal 136-145 [facility] Comment on above: Performed By: #### A 1C #### [facility] [address] [place] [address] Dr. Gin Chew Urea nitrogen [Mass/Vol] 17.0 mg/dL Normal 7.0-18.0 [facility] Comment on above: Performed By: #### A 1C #### [facility] [address] [place] [address] Dr. Gin Chew Urea nitrogen/Creatinine [Mass ratio] 19.8 mg/mg Normal [facility] Comment on above: Performed By: #### A 1C #### [facility] [address] [place] [address] Dr. Gin Chew SED RATE WESTERGRENon 2022 SED RATE 8 mm/hr Normal <=30 [facility] Comment on above: Performed By: #### A 1C #### [facility] [address] [place] [address] Dr. Gin Chew CBC AUTO DIFFon 08-17-2022 BASO # 0.1 103/ul Normal 0.0-0.1 [facility] Comment on above: Performed By: #### B MP #### [facility] [address] [place] [address] Dr. Gin Chew Basophils/100 WBC (Bld) 0.7 % Normal 0.2-2.0 [facility] Comment on above: Performed By: #### B MP #### [facility] [address] [place] [address] Dr. Gin Chew EO # 0.3 103/ul Normal 0.0-0.7 [facility] Comment on above: Performed By: #### B MP #### [facility] [address] [place] [address] Dr. Gin Chew Eosinophils/100 WBC (Bld) 1.9 % Normal 0.9-7.0 [facility] Comment on above: Performed By: #### B MP #### [facility] [address] [place] [address] Dr. Gin Chew Erythrocyte distribution width (RBC) [Ratio] 12.9 % Normal 11.0-15.0 [facility] Comment on above: Performed By: #### B MP #### [facility] [address] [place] [address] Dr. Gin Chew Hematocrit (Bld) [Volume fraction] 42.9 % Normal 36.0-48.0 [facility] Comment on above: Performed By: #### B MP #### [facility] [address] [place] [address] Dr. Gin Chew Hemoglobin (Bld) [Mass/Vol] 14.3 g/dL Normal 12.0-16.0 [facility] Comment on above: Performed By: #### B MP #### [facility] [address] [address] [address] Gin Chew IG # 0.41 10e3/ul Critically high 0.00-0.03 [facility] Comment on above: Performed By: #### B MP #### [facility] [address] [address] [address] Gin Chew IG % 2.5 % Critically high 0.0-0.5 [facility] Comment on above: Performed By: #### B MP #### [facility] [address] [address] [address] Gin Chew LYMPH # 3.5 103/ul Normal 1.2-3.8 [facility] Comment on above: Performed By: #### B MP #### [facility] [address] [place] [address] Dr. Gin Chew Lymphocytes/100 WBC (Bld) 21.5 % Normal 20.5-60.0 [facility] Comment on above: Performed By: #### B MP #### [facility] [address] [place] [address] Dr. Gin Chew MANUAL DIFF REQ NO Normal [facility] Comment on above: Performed By: #### B MP #### [facility] [address] [place] [address] Dr. Gin Chew MCH (RBC) [Entitic mass] 30.9 pg Normal 26.7-34.0 [facility] Comment on above: Performed By: #### B MP #### [facility] [address] [place] [address] Dr. Gin Chew MCHC (RBC) [Mass/Vol] 33.3 g/dL Normal 29.9-35.2 [facility] Comment on above: Performed By: #### B MP #### [facility] [address] [place] [address] Dr. Gin Chew MCV (RBC) [Entitic vol] 92.7 fL Normal 81.0-99.0 [facility] Comment on above: Performed By: #### B MP #### [facility] [address] [address] [address] Gin Chew MONO # 1.0 103/ul Critically high 0.3-0.8 [facility] Comment on above: Performed By: #### B MP #### [facility] [address] [address] [address] Gin Chew Monocytes/100 WBC (Bld) 6.2 % Normal 1.7-12.0 [facility] Comment on above: Performed By: #### B MP #### [facility] [address] [place] [address] Dr. Gin Chew NEUT # 10.9 103/ul Critically high 1.4-6.5 [facility] Comment on above: Performed By: #### B MP #### [facility] [address] [place] [address] Dr. Gin Chew Neutrophils/100 WBC (Bld) 67.2 % Normal 43.0-75.0 [facility] Comment on above: Performed By: #### B MP #### [facility] [address] [place] [address] Dr. Gin Chew Platelet mean volume (Bld) [Entitic vol] 9.7 fL Normal 9.5-13.5 [facility] Comment on above: Performed By: #### B MP #### [facility] [address] [place] [address] Dr. Gin Chew PLT 424 103/ul Normal 150-450 [facility] Comment on above: Performed By: #### B MP #### [facility] [address] [place] [address] Dr. Gin Chew RBC 4.63 106/ul Normal 4.20-5.40 [facility] Comment on above: Performed By: #### B MP #### [facility] [address] [place] [address] Dr. Gin Chew WBC 16.2 103/ul Critically high 4.0-11.0 [facility] Comment on above: Performed By: #### B MP #### [facility] [address] [id number] Gin Chew CT HEAD WO CONon [...] Lloyd SANDRA Date: 2022-08-17 18:16 Normal [facility] Covid-19 PCR (CVDTB)on 07-21 SARS-CoV-2 (COVID-19) RNA ARIADNA+probe Ql (Unsp spec) Not detected Normal NOT DETECTED [facility] Comment on above: Result Comment: This test is not yet approved or cleared by the [place] FDA. When there are no FDA-approved or cleared tests available, and other criteria are met, FDA can make tests available under an emergency access mechanism called an Emergency Use Authorization (EUA). The EUA for this test is supported by the Women [employer] of Health and Human Service's (HHS's) declaration [...] SARS-CoV-2. Performed By: #### A 1C #### [facility] [address] [place] [address] Dr. Gin Chew PROF CHEM 8 (BAS METB)on Anion gap [Moles/Vol] 13.8 mmol/L Normal [facility] Comment on above: Performed By: #### B MP #### [facility] [address] [place] [address] Dr. Gin Chew Calcium [Mass/Vol] 9.0 mg/dL Normal 8.5-10.1 [facility] Comment on above: Performed By: #### B MP #### [facility] [address] [place] [address] Dr. Gin Chew Chloride [Moles/Vol] 102 mmol/L Normal 98-107 [facility] Comment on above: Performed By: #### B MP #### [facility] [address] [place] [address] Dr. Gin Chew CO2 [Moles/Vol] 28.4 mmol/L Normal 21.0-32.0 [facility] Comment on above: Performed By: #### B MP #### [facility] [address] [place] [address] Dr. Gin Chew Creatinine [Mass/Vol] 0.93 mg/dL Normal 0.55-1.02 [facility] Comment on above: Performed By: #### B MP #### [facility] [address] [place] [address] Dr. Gin Chew EGFR-AF WELSH >60 Normal >=60 [facility] Comment on above: Performed By: #### B MP #### [facility] [address] [place] [address] Dr. Gin Chew EGFR-NON AF WELSH >60 Normal >=60 [facility] Comment on above: Performed By: #### B MP #### [facility] [address] [address] [address] Gin Chew Glucose [Mass/Vol] 133 mg/dL Critically high 74-106 [facility] Comment on above: Performed By: #### B MP #### [facility] [address] [address] [address] Gin Chew Potassium [Moles/Vol] 4.2 mmol/L Normal 3.5-5.1 [facility] Comment on above: Performed By: #### B MP #### [facility] [address] [address] [address] Gin Chew Sodium [Moles/Vol] 140 mmol/L Normal 136-145 [facility] Comment on above: Performed By: #### B MP #### [facility] [address] [address] [address] Gin Chew Urea nitrogen [Mass/Vol] 20.0 mg/dL Critically high 7.0-18.0 [facility] Comment on above: Performed By: #### B MP #### [facility] [address] [address] [address] Gin Chew Urea nitrogen/Creatinine [Mass ratio] 21.5 mg/mg Normal [facility] Comment on above: Performed By: #### B MP #### [facility] [address] [address] [address] Gin Chew SYMPTOMATIC COVID-19 ANTIGEN on 08-17-2022 EUA Statement SEE BELOW Normal [facility] Comment on above: Result Comment: This [...] sooner. Performed By: #### A 1C #### [facility] [address] [place] [address] Dr. Gin Chew SARS-CoV-2 (COVID-19) RNA ARIADNA+probe Ql (Unsp spec) Negative Normal NEGATIVE [facility] Comment on above: Performed By: #### A 1C #### [facility] [address] [place] [address] Dr. Gin Chew CBC AUTO DIFFon 07-10-2022 BASO # 0.1 103/ul Normal 0.0-0.1 [facility] Comment on above: Performed By: #### B MP #### [facility] [address] [place] [address] Dr. Gin Chew Basophils/100 WBC (Bld) 1.0 % Normal 0.2-2.0 [facility] Comment on above: Performed By: #### B MP #### [facility] [address] [place] [address] Dr. Gin Chew EO # 0.5 103/ul Normal 0.0-0.7 [facility] Comment on above: Performed By: #### B MP #### [facility] [address] [place] [address] Dr. Gin Chew Eosinophils/100 WBC (Bld) 7.1 % Critically high 0.9-7.0 [facility] Comment on above: Performed By: #### B MP #### [facility] [address] [place] [address] Dr. Gin Chew Erythrocyte distribution width (RBC) [Ratio] 12.3 % Normal 11.0-15.0 [facility] Comment on above: Performed By: #### B MP #### [facility] [address] [place] [address] Dr. Gin Chew Hematocrit (Bld) [Volume fraction] 39.6 % Normal 36.0-48.0 [facility] Comment on above: Performed By: #### B MP #### [facility] [address] [place] [address] Dr. Gin Chew Hemoglobin (Bld) [Mass/Vol] 13.5 g/dL Normal 12.0-16.0 [facility] Comment on above: Performed By: #### B MP #### [facility] [address] [place] [address] Dr. Gin Chew IG # 0.03 10e3/ul Normal 0.00-0.03 [facility] Comment on above: Performed By: #### B MP #### [facility] [address] [place] [address] Dr. Gin Chew IG % 0.4 % Normal 0.0-0.5 [facility] Comment on above: Performed By: #### B MP #### [facility] [address] [place] [address] Dr. Gin Chew LYMPH # 2.4 103/ul Normal 1.2-3.8 [facility] Comment on above: Performed By: #### B MP #### [facility] [address] [place] [address] Dr. Gin Chew Lymphocytes/100 WBC (Bld) 33.7 % Normal 20.5-60.0 [facility] Comment on above: Performed By: #### B MP #### [facility] [address] [place] [address] Dr. Gin Chew MANUAL DIFF REQ NO Normal [facility] Comment on above: Performed By: #### B MP #### [facility] [address] [place] [address] Dr. Gin Chew MCH (RBC) [Entitic mass] 30.8 pg Normal 26.7-34.0 [facility] Comment on above: Performed By: #### B MP #### [facility] [address] [place] [address] Dr. Gin Chew MCHC (RBC) [Mass/Vol] 34.1 g/dL Normal 29.9-35.2 [facility] Comment on above: Performed By: #### B MP #### [facility] [address] [place] [address] Dr. Gin Chew MCV (RBC) [Entitic vol] 90.2 fL Normal 81.0-99.0 [facility] Comment on above: Performed By: #### B MP #### [facility] [address] [place] [address] Dr. Gin Chew MONO # 0.5 103/ul Normal 0.3-0.8 [facility] Comment on above: Performed By: #### B MP #### [facility] [address] [place] [address] Dr. Gin Chew Monocytes/100 WBC (Bld) 6.7 % Normal 1.7-12.0 [facility] Comment on above: Performed By: #### B MP #### [facility] [address] [place] [address] Dr. Gin Chew NEUT # 3.6 103/ul Normal 1.4-6.5 [facility] Comment on above: Performed By: #### B MP #### [facility] [address] [place] [address] Dr. Gin Chew Neutrophils/100 WBC (Bld) 51.1 % Normal 43.0-75.0 [facility] Comment on above: Performed By: #### B MP #### [facility] [address] [place] [address] Dr. Gin Chew Platelet mean volume (Bld) [Entitic vol] 9.6 fL Normal 9.5-13.5 [facility] Comment on above: Performed By: #### B MP #### [facility] [address] [place] [address] Dr. Gin Chew PLT 337 103/ul Normal 150-450 [facility] Comment on above: Performed By: #### B MP #### [facility] [address] [place] [address] Dr. Gin Chew RBC 4.39 106/ul Normal 4.20-5.40 [facility] Comment on above: Performed By: #### B MP #### [facility] [address] [place] [address] Dr. Gin Chew WBC 7.0 103/ul Normal 4.0-11.0 [facility] Comment on above: Performed By: #### B MP #### [facility] [address] [address] [address] Gin Chew CULTURE URINEon 07-10-2022 CULTURE URINE Culture Observations: MODERATE GROWTH OF MIXED GENITAL ELOINA. NO POTENTIAL PATHOGENS SEEN. Normal [facility] Comment on above: Performed By: #### A 1C #### [facility] [address] [place] [address] Dr. Gin Chew FREE T3on 07-10-2022 FREE T3 2.10 pg/mlL Critically low 2.18-3.98 [facility] Comment on above: Performed By: #### F T3, CMP, LIPID, TSH #### [facility] [address] [place] [address] Dr. Gin Chew FREE T4on 07-10-2022 Free T4 [Mass/Vol] 1.56 ng/dL Critically high 0.76-1.46 [facility] Comment on above: Performed By: #### F T4, VITAD #### [facility] [address] [place] [address] Dr. Gin Chew GLYCOHEMOGLOBIN A1Con 2022 ADA RECOMMENDATION SEE BELOW Normal [facility] Comment on above: Result Comment: ADA RECOMMENDED LIMIT 4.0 - 6.0 ADA THERAPEUTIC TARGET < 7.0 ACTION SUGGESTED > 7.0 Performed By: #### A 1C #### [facility] [address] [place] [address] Dr. Gin Chew Glucose [Mass/Vol] 134 mg/dL Normal [facility] Comment on above: Performed By: #### A 1C #### [facility] [address] [place] [address] Dr. Gin Chew HbA1c (Bld) [Mass fraction] 6.3 % Critically high 4.5-6.2 [facility] Comment on above: Performed By: #### A 1C #### [facility] [address] [place] [address] Dr. Gin Chew LIPID PROFILEon 07-10-2022 CHOL-HDL RATIO NORM SEE BELOW Normal [facility] Comment on above: Result Comment: 3.3 - 4.4 LOW RISK 4.4 - 7.1 AVERAGE RISK 7.1 - 11.0 MODERATE RISK >11.0 HIGH RISK Performed By: #### F T3, CMP, LIPID, TSH #### [facility] [address] [address] [address] Gin Chew Cholesterol [Mass/Vol] 190 mg/dL Normal <=200 [facility] Comment on above: Performed By: #### F T3, CMP, LIPID, TSH #### [facility] [address] [address] [address] Gin Chew Cholesterol in HDL [Mass/Vol] 76 mg/dL Critically high 40-60 [facility] Comment on above: Performed By: #### F T3, CMP, LIPID, TSH #### [facility] [address] [address] [address] Gin Chew Cholesterol in LDL [Mass/Vol] 98.4 mg/dL Normal [facility] Comment on above: Performed By: #### F T3, CMP, LIPID, TSH #### [facility] [address] [address] [address] Gin Chew Cholesterol.total/Haylie sterol in HDL [Mass ratio] 2.5 {ratio} Normal [facility] Comment on above: Performed By: #### F T3, CMP, LIPID, TSH #### [facility] [address] [address] [address] Gin Chew HDL NORMAL > or = 60 mg/dl - LOW CARDIOVASCULAR RISK <40 mg/dl - HIGH CARDIOVASCULAR RISK Normal [facility] Comment on above: Performed By: #### F T3, CMP, LIPID, TSH #### [facility] [address] [address] [address] Gin Chew LDL CALC NORMAL SEE BELOW Normal [facility] Comment on above: Result Comment: <100 mg/dl OPTIMAL 100 - 129 mg/dl NEAR OR ABOVE OPTIMAL 130 - 159 mg/dl BORDERLINE HIGH 160 - 189 mg/dl HIGH >190 mg/dl VERY HIGH Performed By: #### F T3, CMP, LIPID, TSH #### [facility] [address] [address] [address] Gin Chew Triglyceride [Mass/Vol] 78 mg/dL Normal <=150 T [facility] Comment on above: Performed By: #### F T3, CMP, LIPID, TSH #### [facility] [address] [address] [address] Gin Chew VLDL CALC 15.6 mg/dL Normal [facility] Comment on above: Performed By: #### F T3, CMP, LIPID, TSH #### [facility] [address] [address] [address] Gin Chew MICROALBUMIN, RAND URon 06-22 mALB 1.7 mg/L Normal <=30.0 [facility] Comment on above: Performed By: #### A 1C #### [facility] [address] [place] [address] Dr. Gin Chew PROF 14(COMP METB)on 023 Albumin [Mass/Vol] 4.0 g/dL Normal 3.4-5.0 [facility] Comment on above: Performed By: #### F T3, CMP, LIPID, TSH #### [facility] [address] [address] [address] Gin Chew Albumin/Globulin [Mass ratio] 1.2 {ratio} Normal [facility] Comment on above: Performed By: #### F T3, CMP, LIPID, TSH #### [facility] [address] [address] [address] Gin Chew ALP [Catalytic activity/Vol] 67 U/L Normal 46-116 [facility] Comment on above: Performed By: #### F T3, CMP, LIPID, TSH #### [facility] [address] [address] [address] Gin Chew ALT [Catalytic activity/Vol] 25 U/L Normal 14-59 [facility] Comment on above: Performed By: #### F T3, CMP, LIPID, TSH #### [facility] [address] [address] [address] Gin Chew Anion gap [Moles/Vol] 12.2 mmol/L Normal [facility] Comment on above: Performed By: #### F T3, CMP, LIPID, TSH #### [facility] [address] [address] [address] Gin Chew AST [Catalytic activity/Vol] 20 U/L Normal 15-37 [facility] Comment on above: Performed By: #### F T3, CMP, LIPID, TSH #### [facility] [address] [address] [address] Gin Chew Bilirubin [Mass/Vol] 0.4 mg/dL Normal 0.2-1.0 [facility] Comment on above: Performed By: #### F T3, CMP, LIPID, TSH #### [facility] [address] [address] [address] Gin Chew Calcium [Mass/Vol] 9.6 mg/dL Normal 8.5-10.1 [facility] Comment on above: Performed By: #### F T3, CMP, LIPID, TSH #### [facility] [address] [address] [address] Gin Chew Chloride [Moles/Vol] 103 mmol/L Normal 98-107 [facility] Comment on above: Performed By: #### F T3, CMP, LIPID, TSH #### [facility] [address] [address] [address] Gin Chew CO2 [Moles/Vol] 28.1 mmol/L Normal 21.0-32.0 [facility] Comment on above: Performed By: #### F T3, CMP, LIPID, TSH #### [facility] [address] [address] [address] Gin Chew Creatinine [Mass/Vol] 0.64 mg/dL Normal 0.55-1.02 [facility] Comment on above: Performed By: #### F T3, CMP, LIPID, TSH #### [facility] [address] [place] [address] Dr. Gin Chew EGFR-AF WELSH >60 Normal >=60 [facility] Comment on above: Performed By: #### F T3, CMP, LIPID, TSH #### [facility] [address] [place] [address] Dr. Gin Chew EGFR-NON AF WELSH >60 Normal >=60 [facility] Comment on above: Performed By: #### F T3, CMP, LIPID, TSH #### [facility] [address] [address] [address] Gin Chew Globulin (S) [Mass/Vol] 3.3 g/dL Normal T [facility] Comment on above: Performed By: #### F T3, CMP, LIPID, TSH #### [facility] [address] [address] [address] Gin Chew Glucose [Mass/Vol] 98 mg/dL Normal 74-106 [facility] Comment on above: Performed By: #### F T3, CMP, LIPID, TSH #### [facility] [address] [place] [address] Dr. Gin Chew Potassium [Moles/Vol] 4.3 mmol/L Normal 3.5-5.1 [facility] Comment on above: Performed By: #### F T3, CMP, LIPID, TSH #### [facility] [address] [address] [address] Gin Chew Protein [Mass/Vol] 7.3 g/dL Normal 6.4-8.2 [facility] Comment on above: Performed By: #### F T3, CMP, LIPID, TSH #### [facility] [address] [place] [address] Dr. Gin Chew Sodium [Moles/Vol] 139 mmol/L Normal 136-145 [facility] Comment on above: Performed By: #### F T3, CMP, LIPID, TSH #### [facility] [address] [place] [address] Dr. Gin Chew Urea nitrogen [Mass/Vol] 21.0 mg/dL Critically high 7.0-18.0 [facility] Comment on above: Performed By: #### F T3, CMP, LIPID, TSH #### [facility] [address] [place] [address] Dr. Gin Chew Urea nitrogen/Creatinine [Mass ratio] 32.8 mg/mg Normal [facility] Comment on above: Performed By: #### F T3, CMP, LIPID, TSH #### [facility] [address] [place] [address] Dr. Gin Chew TSHon 07-10-2022 TSH 2.200 uIU/mL Normal 0.358-3.740 [facility] Comment on above: Performed By: #### F T3, CMP, LIPID, TSH #### [facility] [address] [place] [address] Dr. Gin Chew UA RANDOM W/MICROSCOPICon BACTERIA NONE SEEN Normal NONE SEEN [facility] Comment on above: Performed By: #### F T3, CMP, LIPID, TSH #### [facility] [address] [place] [address] Dr. Gin Chew Bilirubin Ql (U) Negative Normal NEGATIVE [facility] Comment on above: Performed By: #### F T3, CMP, LIPID, TSH #### [facility] [address] [place] [address] Dr. Gin Chew CAST NONE SEEN Normal NONE SEEN [facility] Comment on above: Performed By: #### F T3, CMP, LIPID, TSH #### [facility] [address] [place] [address] Dr. Gin Chew Clarity (U) CLEAR Normal CLEAR [facility] Comment on above: Performed By: #### F T3, CMP, LIPID, TSH #### [facility] [address] [place] [address] Dr. Gin Chew Color (U) LT. YELLOW Normal YELLOW [facility] Comment on above: Performed By: #### F T3, CMP, LIPID, TSH #### [facility] [address] [place] [address] Dr. Gin Chew Crystals LM Nom (Urine sed) NONE SEEN Normal NONE SEEN [facility] Comment on above: Performed By: #### F T3, CMP, LIPID, TSH #### [facility] [address] [place] [address] Dr. Gin Chew Epithelial cells LM Ql (Urine sed) FEW Abnormal NONE SEEN /RARE [facility] Comment on above: Performed By: #### F T3, CMP, LIPID, TSH #### [facility] [address] [address] [address] Gin Chew Glucose Ql (U) Negative Normal NEGATIVE [facility] Comment on above: Performed By: #### F T3, CMP, LIPID, TSH #### [facility] [address] [address] [address] Gin Chew Hemoglobin Ql (U) Negative Normal NEGATIVE [facility] Comment on above: Performed By: #### F T3, CMP, LIPID, TSH #### [facility] [address] [address] [address] Gin Chew Ketones Ql (U) Negative Normal NEGATIVE [facility] Comment on above: Performed By: #### F T3, CMP, LIPID, TSH #### [facility] [address] [place] [address] Dr. Gin Chew LEUKOCYTES Negative Normal NEGATIVE [facility] Comment on above: Performed By: #### F T3, CMP, LIPID, TSH #### [facility] [address] [address] [address] Gin Chew MUCOUS NONE SEEN Normal NONE SEEN [facility] Comment on above: Performed By: #### F T3, CMP, LIPID, TSH #### [facility] [address] [address] [address] Gin Chew Nitrite Ql (U) Negative Normal NEGATIVE [facility] Comment on above: Performed By: #### F T3, CMP, LIPID, TSH #### [facility] [address] [address] [address] Gin Chew pH (U) 5.5 [pH] Normal 5-9 [facility] Comment on above: Performed By: #### F T3, CMP, LIPID, TSH #### [facility] [address] [place] [address] Dr. Gin Chew RBC NONE SEEN Abnormal 0-2 [facility] Comment on above: Performed By: #### F T3, CMP, LIPID, TSH #### [facility] [address] [address] [address] Gin Chew SPEC GRAVITY 1.025 Normal 1.005-<=1.025 [facility] Comment on above: Performed By: #### F T3, CMP, LIPID, TSH #### [facility] [address] [address] [address] Gin Chew UA PROTEIN Negative Normal NEGATIVE/ TRACE [facility] Comment on above: Performed By: #### F T3, CMP, LIPID, TSH #### [facility] [address] [address] [address] Gin Chew Urobilinogen Qn (U) 0.2 {David'U}/dL Normal 0.2 - 1. 0 [facility] Comment on above: Performed By: #### F T3, CMP, LIPID, TSH #### [facility] [address] [place] [address] Dr. Gin Chew WBC NONE SEEN Normal NONE SEEN [facility] Comment on above: Performed By: #### F T3, CMP, LIPID, TSH #### [facility] [address] [place] [address] Dr. Gin Chew VITAMIN D 25 OHon 07-10-2022 VIT D 25-OH 30.1 ng/mL Normal [facility] Comment on above: Performed By: #### F T4, VITAD #### [facility] [address] [place] [address] Dr. Gin Chew VIT D RANGES SEE BELOW Normal [facility] Comment on above: Result Comment: <20 ng/mL Vit D deficient 20 - <30 ng/mL Vit D insufficient 30 - 100 ng/mL Vit D sufficient >100 ng/mL Potential Toxicity Performed By: #### F T4, VITAD #### [facility] [address] [place] [address] Dr. Gin Chew FREE T3on 04-05-2022 FREE T3 2.83 pg/mlL Normal 2.18-3.98 [facility] Comment on above: Performed By: #### B MP #### [facility] [address] [place] [address] Dr. Gin Chew FREE T4on 04-05-2022 Free T4 [Mass/Vol] 1.74 ng/dL Critically high 0.76-1.46 T [facility] Comment on above: Performed By: #### F T4 #### [facility] [address] [address] [address] Gin Chew TSHon 04-05-2022 TSH 0.235 uIU/mL Critically low 0.358-3.740 [facility] Comment on above: Performed By: #### B MP #### [facility] [address] [place] [address] Dr. Gin Chew XR CHEST 2 Von 11-29-2021 XR CHEST 2 V EXAMINATION: XR CHEST 2 V HISTORY: Cough COMPARISON: 09/28/2021 TECHNIQUE: [...] by: JEFF PATHAK Date: 2021-11-29 21:03 Normal [facility] Telephone (ENDOSO) CANELO PATHAK ([id number]) 1965 F Date Time Provider Department 10/13/21 [...] Date Reviewed: 10/13/2021 Reviewed by: Anila Jimenez APRN.PERSONAL CARE WORKER - Fully Assessed Reason for Visit: Appointment [...] mg by mouth daily at bedtime. - MULTIVIT-MINERALS/FE RROUS GLUC (CENTRAM-CARE ORAL) Take by mouth twice daily. - esomeprazole mag trihydrate(NEXIUM 40 MG CAP) Take one(1) capsule daily. - mometasone furoate(NASONEX 50 MCG/ACTUATION SPRAY) [place] twice in each nostril once daily. - cetirizine hcl(ZYRTEC 10 MG TAB) Take one(1) tablet daily. - fluticasone/salmeter ol(ADVAIR DISKUS 250 MCG-50 MCG/DOSE FOR INHALATION) Take [...] Status:Closed by ANILA JIMENEZ on 10/13/21 Normal [facility] CBC W Auto Differential pane l (Bld)on 10-07-2021 Basophils (Bld) [#/Vol] 0.07 10*3/uL Normal <0.11 [facility] Comment on above: Order Comment: Speci men Type: BLOOD SPECIMENOrdering Facility: [facility] Address: [address] [place] [address] Performed By: #### C MP, HBA1C, FREET3, FT4, TSH #### [facility] [employer] [address] [place] [address] Basophils/100 WBC (Bld) 0.7 % Normal [facility] Comment on above: Order Comment: Speci men Type: BLOOD SPECIMENOrdering Facility: [facility] Address: [address] [place] [address] Performed By: #### C MP, HBA1C, FREET3, FT4, TSH #### [facility] [employer] [address] [place] [address] Differential cell count method Nom (Bld) Auto Normal [facility] Comment on above: Order Comment: Speci men Type: BLOOD SPECIMENOrdering Facility: [facility] Address: [address] [place] [address] Performed By: #### C MP, HBA1C, FREET3, FT4, TSH #### [facility] [employer] [address] [place] [address] Eosinophils (Bld) [#/Vol] 0.29 10*3/uL Normal <0.46 [facility] Comment on above: Order Comment: Speci men Type: BLOOD SPECIMENOrdering Facility: [facility] Address: [address] [place] [address] Performed By: #### C MP, HBA1C, FREET3, FT4, TSH #### [facility] [employer] [address] [place] [address] Eosinophils/100 WBC (Bld) 3.0 % Normal [facility] Comment on above: Order Comment: Speci men Type: BLOOD SPECIMENOrdering Facility: [facility] Address: [address] [place] [address] Performed By: #### C MP, HBA1C, FREET3, FT4, TSH #### [place] [address] Erythrocyte distribution width (RBC) [Ratio] 12.3 % Normal 11.5-15.0 [facility] Comment on above: Order Comment: Speci men Type: BLOOD SPECIMENOrdering Facility: [facility] Address: [address] [place] [address] Performed By: #### C MP, HBA1C, FREET3, FT4, TSH #### [place] [phone] Hematocrit (Bld) [Volume fraction] 43.4 % Normal 36.0-46.0 [facility] Comment on above: Order Comment: Speci men Type: BLOOD SPECIMENOrdering Facility: [facility] Address: [address] [place] [address] Performed By: #### C MP, HBA1C, FREET3, FT4, TSH #### [place] [phone] Hemoglobin (Bld) [Mass/Vol] 14.5 g/dL Normal 11.5-15.5 [facility] Comment on above: Order Comment: Speci men Type: BLOOD SPECIMENOrdering Facility: [facility] Address: [address] [place], [place] [id number] Performed By: #### C MP, HBA1C, FREET3, FT4, TSH #### [place] [phone] IMMATURE GRAN % 0.4 % Normal [facility] Comment on above: Order Comment: Speci men Type: BLOOD SPECIMENOrdering Facility: [facility] Address: [address] [place] [address] Performed By: #### C MP, HBA1C, FREET3, FT4, TSH #### [place] [phone] [place] [address] IMMATURE GRAN ABS 0.04 k/uL Normal <0.10 [facility] Comment on above: Order Comment: Speci men Type: BLOOD SPECIMENOrdering Facility: [facility] Address: [address] [place] [address] Performed By: #### C MP, HBA1C, FREET3, FT4, TSH #### [place] [address] Lymphocytes (Bld) [#/Vol] 2.21 10*3/uL Normal 1.00-4.00 [facility] Comment on above: Order Comment: Speci men Type: BLOOD SPECIMENOrdering Facility: [facility] Address: [address] [place] [address] Performed By: #### C MP, HBA1C, FREET3, FT4, TSH #### [place] [address] Lymphocytes/100 WBC (Bld) 22.6 % Normal [facility] Comment on above: Order Comment: Speci men Type: BLOOD SPECIMENOrdering Facility: [facility] Address: [address] [place] [address] Performed By: #### C MP, HBA1C, FREET3, FT4, TSH #### [place] [address] MCH (RBC) [Entitic mass] 30.7 pg Normal 26.0-34.0 [facility] Comment on above: Order Comment: Speci men Type: BLOOD SPECIMENOrdering Facility: [facility] Address: [address] [place] [address] Performed By: #### C MP, HBA1C, FREET3, FT4, TSH #### [place] [address] MCHC (RBC) [Mass/Vol] 33.4 g/dL Normal 30.5-36.0 [facility] Comment on above: Order Comment: Speci men Type: BLOOD SPECIMENOrdering Facility: [facility] Address: [address] [place] [address] Performed By: #### C MP, HBA1C, FREET3, FT4, TSH #### [place] [address] MCV (RBC) [Entitic vol] 91.9 fL Normal 80.0-100.0 [facility] Comment on above: Order Comment: Speci men Type: BLOOD SPECIMENOrdering Facility: [facility] Address: [address] [place] [address] Performed By: #### C MP, HBA1C, FREET3, FT4, TSH #### [place] [address] Monocytes (Bld) [#/Vol] 0.60 10*3/uL Normal <0.87 [facility] Comment on above: Order Comment: Speci men Type: BLOOD SPECIMENOrdering Facility: [facility] Address: [address] [place] [address] Performed By: #### C MP, HBA1C, FREET3, FT4, TSH #### [place] [address] Monocytes/100 WBC (Bld) 6.1 % Normal [facility] Comment on above: Order Comment: Speci men Type: BLOOD SPECIMENOrdering Facility: [facility] Address: [address] [place], [place] [id number] Performed By: #### C MP, HBA1C, FREET3, FT4, TSH #### [place] [address] Neutrophils (Bld) [#/Vol] 6.57 10*3/uL Normal 1.45-7.50 [facility] Comment on above: Order Comment: Speci men Type: BLOOD SPECIMENOrdering Facility: [facility] Address: [address] [place], [place] [id number] Performed By: #### C MP, HBA1C, FREET3, FT4, TSH #### [place] [address] Neutrophils/100 WBC (Bld) 67.2 % Normal [facility] Comment on above: Order Comment: Speci men Type: BLOOD SPECIMENOrdering Facility: [facility] Address: [address] [place] [address] Performed By: #### C MP, HBA1C, FREET3, FT4, TSH #### [place] [address] Nucleated RBC (Bld) [#/Vol] 10*3/uL Normal <0.01 [facility] Comment on above: Order Comment: Speci men Type: BLOOD SPECIMENOrdering Facility: [facility] Address: [address] [place] [address] Performed By: #### C MP, HBA1C, FREET3, FT4, TSH #### [place] [address] Nucleated RBC/100 WBC (Bld) [Ratio] 0.0 /100 WBC Normal [facility] Comment on above: Order Comment: Speci men Type: BLOOD SPECIMENOrdering Facility: [facility] Address: [address] [place] [address] Performed By: #### C MP, HBA1C, FREET3, FT4, TSH #### [place] [address] Platelet mean volume (Bld) [Entitic vol] 10.4 fL Normal 9.0-12.7 [facility] Comment on above: Order Comment: Speci men Type: BLOOD SPECIMENOrdering Facility: [facility] Address: [address] [place] [address] Performed By: #### C MP, HBA1C, FREET3, FT4, TSH #### [place] [address] Platelets (Bld) [#/Vol] 371 10*3/uL Normal 150-400 [facility] Comment on above: Order Comment: Speci men Type: BLOOD SPECIMENOrdering Facility: [facility] Address: [address] [place] [address] Performed By: #### C MP, HBA1C, FREET3, FT4, TSH #### [facility] [address] [place] [phone] RBC (Bld) [#/Vol] 4.72 10*6/uL Normal 3.90-5.20 [facility] Comment on above: Order Comment: Speci men Type: BLOOD SPECIMENOrdering Facility: [facility] Address: [address] [place] [address] Performed By: #### C MP, HBA1C, FREET3, FT4, TSH #### [facility] [address] [place] [address] WBC (Bld) [#/Vol] 9.78 10*3/uL Normal 3.70-11.00 [facility] Comment on above: Order Comment: Speci men Type: BLOOD SPECIMENOrdering Facility: [facility] Address: [address] [place] [address] Performed By: #### C MP, HBA1C, FREET3, FT4, TSH #### [facility] [address] [place] [address] Abs Immature Gran 0.04 k/uL <0.10 k/uL [facility] Basophils (Bld) [#/Vol] 0.07 10*3/uL <0.11 k/uL [facility] Basophils/100 WBC (Bld) 0.7 % [facility] Differential cell count method Nom (Bld) Auto [facility] Eosinophils (Bld) [#/Vol] 0.29 10*3/uL <0.46 k/uL [facility] Eosinophils/100 WBC (Bld) 3.0 % [facility] Erythrocyte distribution width (RBC) [Ratio] 12.3 % 11.5 - 15.0 % [facility] Hematocrit (Bld) [Volume fraction] 43.4 % 36.0 - 46.0 % [facility] Hemoglobin (Bld) [Mass/Vol] 14.5 g/dL 11.5 - 15.5 g/dL [facility] Immature Gran % 0.4 % [facility] Lymphocytes (Bld) [#/Vol] 2.21 10*3/uL 1.00 - 4.00 k/uL [facility] Lymphocytes/100 WBC (Bld) 22.6 % [facility] MCH (RBC) [Entitic mass] 30.7 pg 26.0 - 34.0 pg [facility] MCHC (RBC) [Mass/Vol] 33.4 g/dL 30.5 - 36.0 g/dL [facility] MCV (RBC) [Entitic vol] 91.9 fL 80.0 - 100.0 fL [facility] Monocytes (Bld) [#/Vol] 0.60 10*3/uL <0.87 k/uL [facility] Monocytes/100 WBC (Bld) 6.1 % [facility] Neutrophils (Bld) [#/Vol] 6.57 10*3/uL 1.45 - 7.50 k/uL [facility] Neutrophils/100 WBC (Bld) 67.2 % [facility] Nucleated RBC (Bld) [#/Vol] 10*3/uL <0.01 k/uL [facility] Nucleated RBC/100 WBC (Bld) [Ratio] 0.0 /100 WBC [facility] Platelet mean volume (Bld) [Entitic vol] 10.4 fL 9.0 - 12.7 fL [facility] Platelets (Bld) [#/Vol] 371 10*3/uL 150 - 400 k/uL [facility] RBC (Bld) [#/Vol] 4.72 10*6/uL 3.90 - 5.2 0 m/uL [facility] WBC (Bld) [#/Vol] 9.78 10*3/uL 3.70 - 11. 00 k/uL [facility] CNOVon 10-07-2021 CNOV Office Visit (RHEUMN) CANELO PATHAK ([id number]) 1965 F Date Time Provider Department 10/07/21 [...] mcg (5,000 unit) cap - Vitamin D [place] ([place]) Take 1 capsule by mouth daily with food. - montelukast (SINGULAIR) 10 mg tablet Take 10 mg by mouth daily at bedtime. - MULTIVIT-MINERALS/FE RROUS GLUC (CENTRAM-CARE ORAL) Take by mouth twice daily. - esomeprazole mag trihydrate(NEXIUM 40 MG CAP) Take one(1) capsule daily. - mometasone furoate(NASONEX 50 MCG/ACTUATION SPRAY) [place] twice in each nostril once daily. - cetirizine hcl(ZYRTEC 10 MG TAB) Take one(1) tablet daily. - fluticasone/salmeter ol(ADVAIR DISKUS 250 MCG-50 MCG/DOSE FOR INHALATION) Take one(1) inhalation twice daily; rinse and gargle mouth with water after each use. No current facility-administere d medications for this visit. Answers for HPI/ROS [...] [place] - Fully Assessed Primary Visit Diagnosis:Fibromyalg ia [M79.7] Other Visit Diagnosis:ALDEN (generalized anxiety disorder) [F41.1] Order(s):CBC + DIFF [SQCBCDIF] Order #: [id number] FUTURE PROTEIN ELECTROPHORESIS SERUM W/INTERP [SQSEPG] Order #: [id number] FUTURE venlafaxine ER (EFFEXOR XR) 37.5 mg 24 hr capsuletake one a day, if tolerated after two weeks increase to twoDisp: 60 capsuleRfl: 3 CO (more content not included)... Normal [facility] Comprehensive metabolic 2000 panelon 10-07-2021 Albumin [Mass/Vol] 4.8 g/dL Normal 3.9-4.9 [facility] Comment on above: Order Comment: Speci men Type: BLOOD SPECIMENOrdering Facility: [facility] Address: [address] [place] [address] Performed By: #### C MP, HBA1C, FREET3, FT4, TSH #### [facility] [address] [place] [address] ALP [Catalytic activity/Vol] 72 U/L Normal 34-123 [facility] Comment on above: Order Comment: Speci men Type: BLOOD SPECIMENOrdering Facility: [facility] Address: [address] [place] [address] Performed By: #### C MP, HBA1C, FREET3, FT4, TSH #### [address] [address] ALT [Catalytic activity/Vol] 24 U/L Normal 7-38 [facility] Comment on above: Order Comment: Speci men Type: BLOOD SPECIMENOrdering Facility: [facility] Address: [address] [place] [address] Performed By: #### C MP, HBA1C, FREET3, FT4, TSH #### [place] [address] Anion gap [Moles/Vol] 11 mmol/L Normal 9-18 [facility] Comment on above: Order Comment: Speci men Type: BLOOD SPECIMENOrdering Facility: [facility] Address: [address] [place] [address] Performed By: #### C MP, HBA1C, FREET3, FT4, TSH #### [place] [address] AST [Catalytic activity/Vol] 17 U/L Normal 13-35 [facility] Comment on above: Order Comment: Speci men Type: BLOOD SPECIMENOrdering Facility: [facility] Address: [address] [place] [address] Performed By: #### C MP, HBA1C, FREET3, FT4, TSH #### [place] [address] Bilirubin [Mass/Vol] 0.5 mg/dL Normal 0.2-1.3 [facility] Comment on above: Order Comment: Speci men Type: BLOOD SPECIMENOrdering Facility: [facility] Address: [address] [place], [place] [id number] Performed By: #### C MP, HBA1C, FREET3, FT4, TSH #### [place] [address] Calcium [Mass/Vol] 10.3 mg/dL High 8.5-10.2 [facility] Comment on above: Order Comment: Speci men Type: BLOOD SPECIMENOrdering Facility: [facility] Address: [address] [place] [address] Performed By: #### C MP, HBA1C, FREET3, FT4, TSH #### [place] [address] Chloride [Moles/Vol] 100 mmol/L Normal 97-105 [facility] Comment on above: Order Comment: Speci men Type: BLOOD SPECIMENOrdering Facility: [facility] Address: [address] [place] [address] Performed By: #### C MP, HBA1C, FREET3, FT4, TSH #### [place] [address] CO2 [Moles/Vol] 28 mmol/L Normal 22-30 [facility] Comment on above: Order Comment: Speci men Type: BLOOD SPECIMENOrdering Facility: [facility] Address: [address] [place] [address] Performed By: #### C MP, HBA1C, FREET3, FT4, TSH #### [place] [phone] Creatinine [Mass/Vol] 0.70 mg/dL Normal 0.58-0.96 [facility] Comment on above: Order Comment: Speci men Type: BLOOD SPECIMENOrdering Facility: [facility] Address: [address] [place] [address] Performed By: #### C MP, HBA1C, FREET3, FT4, TSH #### [place] [phone] ESTIMATED GLOMERULAR FILTRATION RATE 103 mL/min/1.73m??? Normal >=60 [facility] Comment on above: Order Comment: Speci men Type: BLOOD SPECIMENOrdering Facility: [facility] Address: [address] [place] [address] Result Comment: [place] mated Glomerular Filtration [...] C MP, HBA1C, FREET3, FT4, TSH #### [place] [phone] [place] [address] Glucose [Mass/Vol] 124 mg/dL High 74-99 [facility] Comment on above: Order Comment: Briani men Type: BLOOD SPECIMENOrdering Facility: [facility] Address: [address] [place] [address] Result Comment: The [place] Diabetes Association (ADA) provides guidance for cutoff [...] Standards of Medical Care in Diabetes 2016, [place] [employer]. Diabetes Care. 2016.39(Suppl 1). Performed By: #### C MP, HBA1C, FREET3, FT4, TSH #### [place] [phone] [place] [address] Potassium [Moles/Vol] 4.1 mmol/L Normal 3.7-5.1 [facility] Comment on above: Order Comment: Speci men Type: BLOOD SPECIMENOrdering Facility: [facility] Address: [address] [place], [place] [id number] Performed By: #### C MP, HBA1C, FREET3, FT4, TSH #### [place] [address] Protein [Mass/Vol] 7.3 g/dL Normal 6.3-8.0 [facility] Comment on above: Order Comment: Pancho hayes Type: BLOOD SPECIMENOrdering Facility: [facility] Address: [address] [place], [place] [id number] Performed By: #### C MP, HBA1C, FREET3, FT4, TSH #### [place] [phone] [place] [address] Sodium [Moles/Vol] 139 mmol/L Normal 136-144 [facility] Comment on above: Order Comment: Speci men Type: BLOOD SPECIMENOrdering Facility: [facility] Address: [address] [place] [address] Performed By: #### C MP, HBA1C, FREET3, FT4, TSH #### [place] [address] Urea nitrogen [Mass/Vol] 18 mg/dL Normal 7-21 [facility] Comment on above: Order Comment: Pancho men Type: BLOOD SPECIMENOrdering Facility: [facility] Address: [address] [place] [address] Performed By: #### C MP, HBA1C, FREET3, FT4, TSH #### [place] [address] HGB A1Con 10-07-2021 Average glucose Estimated from glycated hemoglobin (Bld) [Mass/Vol] 160 mg/dL Normal [facility] Comment on above: Order Comment: Briani men Type: BLOOD SPECIMENOrdering Facility: [facility] Address: [address] [place] [address] Result Comment: eAG: (Estimated average glucose) is a calculated value from HgbA1c and is customer response representative of the average blood glucose level in the last 2-3 month period. Performed By: #### C MP, HBA1C, FREET3, FT4, TSH #### [place] [address] HbA1c (Bld) [Mass fraction] 7.2 % High 4.3-5.6 [facility] Comment on above: Order Comment: Pancho [facility] Type: BLOOD SPECIMENOrdering Facility: [facility] Address: [address] [place] [address] Result Comment: [place] Diabetes Association guidelines indicate that patients with HgbA1c in the range 5.7-6.4% are at increased risk for development of diabetes, and intervention by lifestyle modification may be beneficial. HgbA1c greater or equal to 6.5% is considered diagnostic of diabetes. Performed By: #### C MP, HBA1C, FREET3, FT4, TSH #### [place] [address] PROTEIN ELECTROPHORESIS SERU M (P)on 10-07-2021 Albumin [Mass/Vol] 4.18 g/dL Normal 3.37-4.23 [facility] Comment on above: Order Comment: Speci men Type: BLOOD SPECIMENOrdering Facility: [facility] Address: [address] [place] [address] Performed By: #### C MP, HBA1C, FREET3, FT4, TSH #### [place] [address] Alpha 1 globulin Elph [Mass/Vol] 0.24 g/dL Normal 0.18-0.31 [facility] Comment on above: Order Comment: Speci men Type: BLOOD SPECIMENOrdering Facility: [facility] Address: [address] [place] [address] Performed By: #### C MP, HBA1C, FREET3, FT4, TSH #### [place] [address] Alpha 2 globulin Elph [Mass/Vol] 0.83 g/dL Normal 0.52-0.97 [facility] Comment on above: Order Comment: Speci men Type: BLOOD SPECIMENOrdering Facility: [facility] Address: [address] [place], [place] [id number] Performed By: #### C MP, HBA1C, FREET3, FT4, TSH #### [place] [address] Beta globulin Elph [Mass/Vol] 1.21 g/dL Normal 0.84-1.36 [facility] Comment on above: Order Comment: Speci men Type: BLOOD SPECIMENOrdering Facility: [facility] Address: [address] [place] [address] Performed By: #### C MP, HBA1C, FREET3, FT4, TSH #### [place] [phone] Gamma globulin Elph (Body fld) [Mass fraction] 0.74 g/dL Normal 0.70-1.44 [facility] Comment on above: Order Comment: Speci men Type: BLOOD SPECIMENOrdering Facility: [facility] Address: [address] [place] [address] Performed By: #### C MP, HBA1C, FREET3, FT4, TSH #### [place] [address] M-PROTEIN LOCATION Normal [facility] Comment on above: Order Comment: Speci men Type: BLOOD SPECIMENOrdering Facility: [facility] Address: [address] [place] [address] Result Comment: Not Applicable. Performed By: #### C MP, HBA1C, FREET3, FT4, TSH #### [place] [address] Protein Fractions [Interp] No definitive M protein is identified on protein electrophoresis. Normal No definitive M protein is identified on protein electrophores is. [facility] Comment on above: Order Comment: Speci men Type: BLOOD SPECIMENOrdering Facility: [facility] Address: [address] [place] [address] Performed By: #### C MP, HBA1C, FREET3, FT4, TSH #### [place] [address] Protein.monoclonal Elph [Mass/Vol] 0.00 g/dL Normal <=0.00 [facility] Comment on above: Order Comment: Speci men Type: BLOOD SPECIMENOrdering Facility: [facility] Address: [address] [place] [address] Performed By: #### C MP, HBA1C, FREET3, FT4, TSH #### [place] [address] SPE STAFF REVIEW Reviewed by Ginette Doyle MD [facility] Comment on above: Order Comment: Speci men Type: BLOOD SPECIMENOrdering Facility: [facility] Address: [address] [place] [address] Performed By: #### C MP, HBA1C, FREET3, FT4, TSH #### [place] [address] Prot SerPl-mCncon 10-07-2021 Protein [Mass/Vol] 7.2 g/dL Normal 6.3-8.0 [facility] Comment on above: Order Comment: Speci men Type: BLOOD SPECIMEN [facility] Address: [address] [place] [address] Performed By: #### 2 885-2 #### [facility] CLIA [id number] [address] [place] [address] STATES OF [facility] T3 FREE BLDon 10-07-2021 Free T3 [Mass/Vol] 3.1 pg/mL Normal 2.3-4.1 [facility] Comment on above: Order Comment: Speci men Type: BLOOD SPECIMENOrdering Facility: [facility] Address: [address] [place] [address] Performed By: #### C MP, HBA1C, FREET3, FT4, TSH #### [place] [address] T4 FREE/FREE THYROXon 2021 Free T4 [Mass/Vol] 2.5 ng/dL High 0.9-1.7 [facility] Comment on above: Order Comment: Speci men Type: BLOOD SPECIMENOrdering Facility: [facility] Address: [address] [place] [address] Performed By: #### C MP, HBA1C, FREET3, FT4, TSH #### [place] [phone] TSH SerPl-aCncon 10-07-2021 TSH Qn 0.228 m[IU]/L Low 0.270-4.200 [facility] Comment on above: Order Comment: Speci men Type: BLOOD SPECIMENOrdering Facility: [facility] Address: [address] [place], [place] [id number] Performed By: #### C MP, HBA1C, FREET3, FT4, TSH #### [facility] [address] [place] [address] CNPNon 10-03-2021 CNPN Telephone (ENDOMN) CANELO PATHAK ([id number]) 1965 F Date Time Provider Department 10/03/21 ASAD ANSARI During your visit today, we recorded the following information about you: Renea Mcfar[employer] 10/03/2021 3:05 PM Addendum Patient called in [...] Fully Assessed Reason for Visit: Lab Orders [7358] Primary Visit Diagnosis:Acquired hypothyroidism [E03.9] Other Visit Diagnosis:Controlled type 2 diabetes mellitus without complication, without long-term current use of insulin (HCC) [E11.9] Order(s):TSH BLD [SQTSH] Order #: [id number] FUTURE T4 FREE/FREE THYROX [SQFT4] Order #: [id number] FUTURE T3 FREE BLD [SQFREET3] Order #: [id number] FUTURE COMP METABOLIC PANEL [SQCMP] Order #: [id number] FUTURE HGB A1C [WCAVL0U] Order #: [id number] FUTURE Prescriptions as of 10/05/2021 - metFORMIN ER (GLUCOPHAGE XR) 500 mg 24 hr tablet Take 2 tablets by mouth twice daily. - levothyroxine (SYNTHROID) 112 mcg tablet Take 2 tablets by mouth once daily. - cyclobenzaprine (FLEXERIL) 10 mg tablet - Cholecalciferol, Vitamin D3, 125 mcg (5,000 unit) cap - Vitamin D [place] ([place]ua [place]) Take 1 capsule by mouth daily with food. - montelukast (SINGULAIR) 10 mg tablet Take 10 mg by mouth daily at bedtime. - MULTIVIT-MINERALS/FE RROUS GLUC (CENTRAM-CARE ORAL) Take by mouth twice daily. - esomeprazole mag trihydrate(NEXIUM 40 MG CAP) Take one(1) capsule daily. - mometasone furoate(NASONEX 50 MCG/ACTUATION SPRAY) [place] twice in each nostril once daily. - cetirizine hcl(ZYRTEC 10 MG TAB) Take one(1) tablet daily. - fluticasone/salmeter ol(ADVAIR DISKUS 250 MCG-50 MCG/DOSE FOR INHALATION) Take [...] Status:Closed by ASAD ANSARI on 10/05/21 Normal [facility] CARDIAC ANG ADMITon 022 CK [Catalytic activity/Vol] 34 U/L Normal 26-192 [facility] Comment on above: Performed By: #### F T3, CMP, LIPID, TSH #### [facility] [address] [place] [address] [address] Gin Chew CK.MB [Mass/Vol] 0.66 ng/mL Normal <=3.60 [facility] Comment on above: Performed By: #### F T3, CMP, LIPID, TSH #### [facility] [address] [place] [address] Dr. Gin Chew HSTROP 6.4 pg/mL Normal 4.0-51.3 [facility] Comment on above: Result Comment: CUT- OFF POINTS HAVE BEEN ESTABLISHED BASED ON THE FOURTH UNIVERSAL DEFINITIONS OF MYOCARDIAL INFARCTION. THE UPPER REFERENCE LIMIT (URL) OF TROPONIN, DEFINED THE 99TH PERCENTILE OF cTnI DISTRIBUTION IN A REFERENCE POPULATION, HAS BEEN CONFIRMED THE DECISION THRESHOLD FOR MS DIAGNOSIS. Performed By: #### F T3, CMP, LIPID, TSH #### [facility] [address] [place] [address] Dr. Gin Chew SIXTO 28 ng/mL Normal 9-82 [facility] Comment on above: Performed By: #### F T3, CMP, LIPID, TSH #### [facility] [address] [place] [address] Dr. Gin Chew CBC AUTO DIFFon 09-28-2021 BASO # 0.1 103/ul Normal 0.0-0.1 [facility] Comment on above: Performed By: #### A 1C #### [facility] [address] [place] [address] Dr. Gin Chew Basophils/100 WBC (Bld) 0.7 % Normal 0.2-2.0 [facility] Comment on above: Performed By: #### A 1C #### [facility] [address] [place] [address] Dr. Gin Chew EO # 0.5 103/ul Normal 0.0-0.7 [facility] Comment on above: Performed By: #### A 1C #### [facility] [address] [place] [address] Dr. Gin Chew Eosinophils/100 WBC (Bld) 4.4 % Normal 0.9-7.0 [facility] Comment on above: Performed By: #### A 1C #### [facility] [address] [place] [address] Dr. Gin Chew Erythrocyte distribution width (RBC) [Ratio] 12.7 % Normal 11.0-15.0 [facility] Comment on above: Performed By: #### A 1C #### [facility] [address] [place] [address] Dr. Gin Chew Hematocrit (Bld) [Volume fraction] 42.2 % Normal 36.0-48.0 [facility] Comment on above: Performed By: #### A 1C #### [facility] [address] [place] [address] Dr. Gin Chew Hemoglobin (Bld) [Mass/Vol] 14.1 g/dL Normal 12.0-16.0 [facility] Comment on above: Performed By: #### A 1C #### [facility] [address] [place] [address] Dr. Gin Chew IG # 0.10 10e3/ul Critically high 0.00-0.03 [facility] Comment on above: Performed By: #### A 1C #### [facility] [address] [place] [address] Dr. Gin Chew IG % 0.9 % Critically high 0.0-0.5 [facility] Comment on above: Performed By: #### A 1C #### [facility] [address] [place] [address] Dr. Gin Chew LYMPH # 3.4 103/ul Normal 1.2-3.8 [facility] Comment on above: Performed By: #### A 1C #### [facility] [address] [place] [address] Dr. Gin Chew Lymphocytes/100 WBC (Bld) 29.9 % Normal 20.5-60.0 [facility] Comment on above: Performed By: #### A 1C #### [facility] [address] [place] [address] Dr. Gin Chew MANUAL DIFF REQ NO Normal [facility] Comment on above: Performed By: #### A 1C #### [facility] [address] [place] [address] Dr. Gin Chew MCH (RBC) [Entitic mass] 31.0 pg Normal 26.7-34.0 [facility] Comment on above: Performed By: #### A 1C #### [facility] [address] [place] [address] Dr. Gin Chew MCHC (RBC) [Mass/Vol] 33.4 g/dL Normal 29.9-35.2 [facility] Comment on above: Performed By: #### A 1C #### [facility] [address] [place] [address] Dr. Gin Chew MCV (RBC) [Entitic vol] 92.7 fL Normal 81.0-99.0 [facility] Comment on above: Performed By: #### A 1C #### [facility] [address] [place] [address] Dr. Gin Chew MONO # 0.7 103/ul Normal 0.3-0.8 [facility] Comment on above: Performed By: #### A 1C #### [facility] [address] [place] [address] Dr. Gin Chew Monocytes/100 WBC (Bld) 6.5 % Normal 1.7-12.0 [facility] Comment on above: Performed By: #### A 1C #### [facility] [address] [place] [address] Dr. Gin Chew NEUT # 6.5 103/ul Normal 1.4-6.5 [facility] Comment on above: Performed By: #### A 1C #### [facility] [address] [place] [address] Dr. Gin Chew Neutrophils/100 WBC (Bld) 57.6 % Normal 43.0-75.0 [facility] Comment on above: Performed By: #### A 1C #### [facility] [address] [place] [address] [address] Gin Chew Platelet mean volume (Bld) [Entitic vol] 10.1 fL Normal 9.5-13.5 [facility] Comment on above: Performed By: #### A 1C #### [facility] [address] [place] [address] [address] Gin Chew PLT 349 103/ul Normal 150-450 [facility] Comment on above: Performed By: #### A 1C #### [facility] [address] [place] [address] [address] Gin Chew RBC 4.55 106/ul Normal 4.20-5.40 [facility] Comment on above: Performed By: #### A 1C #### [facility] [address] [place] [address] Dr. Gin Chew WBC 11.3 103/ul Critically high 4.0-11.0 [facility] Comment on above: Performed By: #### A 1C #### [facility] [address] [place] [address] ABD/PELVIS WO CONon [...] by: JEFF PATHAK Date: 2021-09-28 10:31 Normal [facility] POINT OF CARE GLUCOSEon - Glucose [Mass/Vol] 129 mg/dL Critically high 74-106 T he [facility] Comment on above: Performed By: #### F T3, CMP, LIPID, TSH #### [facility] [address] [place] [address] [address] Gin Chew PROF 14(COMP METB)on 022 Albumin [Mass/Vol] 3.7 g/dL Normal 3.4-5.0 [facility] Comment on above: Performed By: #### F T3, CMP, LIPID, TSH #### [facility] [address] [place] [address] [address] Gin Chew Albumin/Globulin [Mass ratio] 1.1 {ratio} Normal [facility] Comment on above: Performed By: #### F T3, CMP, LIPID, TSH #### [facility] [address] [place] [address] [address] Gin Chew ALP [Catalytic activity/Vol] 79 U/L Normal 46-116 [facility] Comment on above: Performed By: #### F T3, CMP, LIPID, TSH #### [facility] [address] [place] [address] [address] Gin Chew ALT [Catalytic activity/Vol] 28 U/L Normal 14-59 [facility] Comment on above: Performed By: #### F T3, CMP, LIPID, TSH #### [facility] [address] [place] [address] [address] Gin Chew Anion gap [Moles/Vol] 9.9 mmol/L Normal [facility] Comment on above: Performed By: #### F T3, CMP, LIPID, TSH #### [facility] [address] [place] [address] [address] Gin Chew AST [Catalytic activity/Vol] 15 U/L Normal 15-37 [facility] Comment on above: Performed By: #### F T3, CMP, LIPID, TSH #### [facility] [address] [place] [address] [address] Gin Chew Bilirubin [Mass/Vol] 0.3 mg/dL Normal 0.2-1.0 [facility] Comment on above: Performed By: #### F T3, CMP, LIPID, TSH #### [facility] [address] [place] [address] [address] Gin Chew Calcium [Mass/Vol] 9.2 mg/dL Normal 8.5-10.1 [facility] Comment on above: Performed By: #### F T3, CMP, LIPID, TSH #### [facility] [address] [place] [address] Dr. Gin Chew Chloride [Moles/Vol] 100 mmol/L Normal 98-107 [facility] Comment on above: Performed By: #### F T3, CMP, LIPID, TSH #### [facility] [address] [place] [address] Dr. Gin Chew CO2 [Moles/Vol] 32.1 mmol/L Critically high 21.0-32.0 [facility] Comment on above: Performed By: #### F T3, CMP, LIPID, TSH #### [facility] [address] [place] [address] Dr. Gin Chew Creatinine [Mass/Vol] 0.75 mg/dL Normal 0.55-1.02 [facility] Comment on above: Performed By: #### F T3, CMP, LIPID, TSH #### [facility] [address] [place] [address] Dr. Gin Chew EGFR-AF WELSH >60 Normal >=60 [facility] Comment on above: Performed By: #### F T3, CMP, LIPID, TSH #### [facility] [address] [place] [address] Dr. Gin Chew EGFR-NON AF WELSH >60 Normal >=60 [facility] Comment on above: Performed By: #### F T3, CMP, LIPID, TSH #### [facility] [address] [place] [address] Dr. Gin Chew Globulin (S) [Mass/Vol] 3.4 g/dL Normal [facility] Comment on above: Performed By: #### F T3, CMP, LIPID, TSH #### [facility] [address] [place] [address] [address] Gin Chew Glucose [Mass/Vol] 138 mg/dL Critically high 74-106 [facility] Comment on above: Performed By: #### F T3, CMP, LIPID, TSH #### [facility] [address] [place] [address] [address] Gin Chew Potassium [Moles/Vol] 4.0 mmol/L Normal 3.5-5.1 [facility] Comment on above: Performed By: #### F T3, CMP, LIPID, TSH #### [facility] [address] [place] [address] Dr. Gin Chew Protein [Mass/Vol] 7.1 g/dL Normal 6.4-8.2 [facility] Comment on above: Performed By: #### F T3, CMP, LIPID, TSH #### [facility] [address] [place] [address] [address] Gin Chew Sodium [Moles/Vol] 138 mmol/L Normal 136-145 [facility] Comment on above: Performed By: #### F T3, CMP, LIPID, TSH #### [facility] [address] [place] [address] Dr. Gin Chew Urea nitrogen [Mass/Vol] 17.0 mg/dL Normal 7.0-18.0 [facility] Comment on above: Performed By: #### F T3, CMP, LIPID, TSH #### [facility] [address] [place] [address] Dr. Gin Chew Urea nitrogen/Creatinine [Mass ratio] 22.7 mg/mg Normal [facility] Comment on above: Performed By: #### F T3, CMP, LIPID, TSH #### [facility] [address] [address] [address] Gin Chew PROTIMEon 09-28-2021 INR Coag (PPP) [Relative time] 0.94 {INR} Normal [facility] Comment on above: Performed By: #### B MP #### [facility] [address] [address] [address] Gin Chew INR GUIDELINES SEE BELOW Normal [facility] Comment on above: Result Comment: MERRICK RED INR: 2.0 - 3.0 CONDITIONS NOT LISTED BELOW 2.5 - 3.5 FOR PROSTHETIC HEART VALVE REPLACEMENT 2.5 - 3.5 RECURRENT THROMBOSIS Performed By: #### B MP #### [facility] [address] [address] [address] Gin Chew PT Coag (PPP) [Time] 10.2 s Normal 9.0-11.6 [facility] Comment on above: Performed By: #### B MP #### [facility] [address] [address] [address] Gin Chew PTTon 09-28-2021 aPTT Coag (Bld) [Time] 26.9 s Normal 22.3-36.2 [facility] Comment on above: Performed By: #### B MP #### [facility] [address] [address] [address] Gin Chew TROPONIN, HIGH SENSITIVITYon 09-28-2021 HSTROP 7.3 pg/mL Normal 4.0-51.3 [facility] Comment on above: Result Comment: CUT- OFF POINTS HAVE BEEN ESTABLISHED BASED ON THE FOURTH UNIVERSAL DEFINITIONS OF MYOCARDIAL INFARCTION. THE UPPER REFERENCE LIMIT (URL) OF TROPONIN, DEFINED THE 99TH PERCENTILE OF cTnI DISTRIBUTION IN A REFERENCE POPULATION, HAS BEEN CONFIRMED THE DECISION THRESHOLD FOR MS DIAGNOSIS. Performed By: #### B MP #### [facility] [address] [place] [address] Dr. Gin Chew XR CHEST 1 Von 09-28-2021 XR CHEST 1 V EXAMINATION: XR CHEST 1 V HISTORY: CHEST PAIN, UNSPECIFIED COMPARISON: [...] PATHAK Date: 2021-09-28 09:20 [facility] (ENDOMN) FRANCISCOCANELO ([id number]) 1965 F Date Time Provider Department 07/21/21 ASAD ANSARI During your visit today, we recorded the following information about you: Luan Amezcuajose 07/21/2021 12:42 PM Signed I called the patient to prescreen prior to 07/22/21 virtual visit, but patient did not answer the phone. I left a message on patient's voicemail stating their appointment is on 07/22/21 at 1040am, so they should log in to appointment 10-15 minutes before appointment time.Also stated to please review allergies and [facility] to ensure they are correct. [...] mcg (5,000 unit) cap - Vitamin D [place] ([employer]) Take 1 capsule by mouth daily with food. - montelukast (SINGULAIR) 10 mg tablet Take 10 mg by mouth daily at bedtime. - MULTIVIT-MINERALS/FE RROUS GLUC (CENTRAM-CARE ORAL) Take by mouth twice daily. - esomeprazole mag trihydrate(NEXIUM 40 MG CAP) Take one(1) capsule daily. - mometasone furoate(NASONEX 50 MCG/ACTUATION SPRAY) [place] twice in each nostril once daily. - cetirizine hcl(ZYRTEC 10 MG TAB) Take one(1) tablet daily. - fluticasone/salmeter ol(ADVAIR DISKUS 250 MCG-50 MCG/DOSE FOR INHALATION) Take [...] bilateral [H90.3] 12/16/2018 Encounter Status:Closed by LUAN BIRMINGHAM on 07/21/21 [facility] Rosa 06-22-[address] [facility] Telephone (ENDOMN) CANELO PATHAK ([id number]) 1965 F Date Time Provider Department 06/22/21 ASAD ANSARI During your visit today, we recorded the following information about you: Neema Gunderson Adm 06/22/2021 9:10 AM Signed Patient called in requesting the results of her labs that she had completed on 06/16/2021 Canelo can be reached at [phone] (c) or can be reached through [employer]. Allergies As of Date: 06/22/2021 Noted Allergy [...] Fully Assessed Reason for Visit: Patient Question [1477] Prescriptions as of 05/10/2022 - levothyroxine (SYNTHROID) [...] mg by mouth daily at bedtime. - MULTIVIT-MINERALS/FE RROUS GLUC (CENTRAM-CARE ORAL) Take by mouth twice daily. - esomeprazole mag trihydrate(NEXIUM 40 MG CAP) Take one(1) capsule daily. - mometasone furoate(NASONEX 50 MCG/ACTUATION SPRAY) [place] twice in each nostril once daily. - cetirizine hcl(ZYRTEC 10 MG TAB) Take one(1) tablet daily. - fluticasone/salmeter ol(ADVAIR DISKUS 250 MCG-50 MCG/DOSE FOR INHALATION) Take [...] Encounter Status:Closed by NEEMA HIGGINBOTHAM on 05/10/22 [facility] CNOVon 06-16-2021 CNOV Office Visit (ENDOMN) CANELO PATHAK ([id number]) 1965 F Date Time Provider Department 06/16/21 1:20 PM ASAD ANSARI During your visit today, we recorded the following information about you: Pulse Blood pressure Weight 87/minute 168/97 128.7 kg Aracelis Rivers Ma 06/16/2021 12:23 PM Signed Thank you for choosing the [facility] Department of Endocrinology, Diabetes and Metabolism. Did you know that you need to call 48 hours in advance of your scheduled visit, if you are unable to make your appointment? The [facility]inology [facility] Met[facility] thanks you for your commitment, because patients not showing to their appointment results in a lost opportunity for patients to receive world class health care at the [facility]. To Cancel an appointment, please choose one of the following: - Call the Appointment Call Center at [phone] - From [facility], Go to Appointments ? Cancel Appts If cancelling, consider your need to reschedule to prevent further delays in your care. To Schedule an appointment, please choose one of the following: - Call the Appointment Call Center at [phone] - From [facility], Go to Appointments ? Request an Appt Asad Ansari MD 06/16/2021 1:56 PM Signed Last Visit: This is the first visit. Ms. Pathak is here for follow up regarding her DM Type 2 and hypothyroidism. Current Immunizations: Most Recent Immunizations Administered Date(s) Administered COVID-19 vaccine, age 12+ yr ([employer] - PURPLE TOP) 09/23/2020 PHYSICAL EXAMINATION: BP [...] mouth daily before breakfast. - Vitamin D [place] ([employer]) Take 1 capsule by mouth daily with food. - montelukast (SINGULAIR) 10 mg tablet Take 10 mg by mouth daily at bedtime. - MULTIVIT-MINERALS/FE RROUS GLUC (CENTRAM-CARE ORAL) Take by mouth twice daily. - esomeprazole mag trihydrate(NEXIUM 40 MG CAP) Take one(1) capsule daily. - mometasone furoate(NASONEX 50 MCG/ACTUATION SPRAY) [place] twice in each nostril once daily. - cetirizine hcl(ZYRTEC 10 MG TAB) Take one(1) tablet daily. - fluticasone/salmeter ol(ADVAIR DISKUS 250 MCG-50 MCG/DOSE FOR INHALATION) Take one(1) inhalation twice daily; rinse and gargle mouth with water after each use. - cyclobenzaprine (FLEXERIL) 10 mg tablet - Cholecalciferol, Vitamin D3, 125 mcg (5,000 unit) cap No current facility-administere d medications for this visit. Review of patient's [...] No tremors. (more content not included)... Normal [facility] Metabolic Panelon 06-16 Albumin [Mass/Vol] 4.6 g/dL Normal 3.9-4.9 [facility] Comment on above: Performed By: #### C MP, HBA1C, FREET3, FT4, TSH #### [facility] [address] [id number] ALP [Catalytic activity/Vol] 83 U/L Normal 34-123 [facility] Comment on above: Performed By: #### C MP, HBA1C, FREET3, FT4, TSH #### [id number] [address] ALT [Catalytic activity/Vol] 28 U/L Normal 7-38 [facility] Comment on above: Performed By: #### C MP, HBA1C, FREET3, FT4, TSH #### [address] [address] Anion gap [Moles/Vol] 12 mmol/L Normal 9-18 [facility] Comment on above: Performed By: #### C MP, HBA1C, FREET3, FT4, TSH #### [id number] [place] [address] AST [Catalytic activity/Vol] 25 U/L Normal 13-35 [facility] Comment on above: Performed By: #### C MP, HBA1C, FREET3, FT4, TSH #### [id number] [id number] Bilirubin [Mass/Vol] 0.4 mg/dL Normal 0.2-1.3 [facility] Comment on above: Performed By: #### C MP, HBA1C, FREET3, FT4, TSH #### [id number] [id number] Calcium [Mass/Vol] 10.0 mg/dL Normal 8.5-10.2 [facility] Comment on above: Performed By: #### C MP, HBA1C, FREET3, FT4, TSH #### [facility] [address] [address] Chloride [Moles/Vol] 102 mmol/L Normal 97-105 [facility] Comment on above: Performed By: #### C MP, HBA1C, FREET3, FT4, TSH #### [address] [phone] CO2 [Moles/Vol] 27 mmol/L Normal 22-30 [facility] Comment on above: Performed By: #### C MP, HBA1C, FREET3, FT4, TSH #### [address] [place] [phone] Creatinine [Mass/Vol] 0.74 mg/dL Normal 0.58-0.96 [facility] Comment on above: Performed By: #### C MP, HBA1C, FREET3, FT4, TSH #### [address] [address] eGFR- Amer. >60 Normal [facility] Comment on above: Performed By: #### C MP, HBA1C, FREET3, FT4, TSH #### [address] [place] [phone] eGFR-All Other Races >60 Normal [facility] Comment on above: Result Comment: eGFR [...] C MP, HBA1C, FREET3, FT4, TSH #### [facility] [address] [address] Glucose [Mass/Vol] 106 mg/dL High 74-99 [facility] Comment on above: Result Comment: The [place] Diabetes Association (ADA) provides guidance for cutoff [...] Standards of Medical Care in Diabetes 2016, [place] Diabetes Association. Diabetes Care. 2016.39(Suppl 1). Performed By: #### C MP, HBA1C, FREET3, FT4, TSH #### [id number] [place] [address] Potassium [Moles/Vol] 3.9 mmol/L Normal 3.7-5.1 [facility] Comment on above: Performed By: #### C MP, HBA1C, FREET3, FT4, TSH #### [id number] [address] Protein [Mass/Vol] 7.2 g/dL Normal 6.3-8.0 [facility] Comment on above: Performed By: #### C MP, HBA1C, FREET3, FT4, TSH #### [id number] [address] Sodium [Moles/Vol] 141 mmol/L Normal 136-144 [facility] Comment on above: Performed By: #### C MP, HBA1C, FREET3, FT4, TSH #### [id number] [place] [address] Urea nitrogen [Mass/Vol] 15 mg/dL Normal 7-21 [facility] Comment on above: Performed By: #### C MP, HBA1C, FREET3, FT4, TSH #### [address] [place] [address] Free T3on 06-16-2021 Free T3 [Mass/Vol] 2.8 pg/mL Normal 2.3-4.1 [facility] Comment on above: Performed By: #### C MP, HBA1C, FREET3, FT4, TSH #### [address] [place] [address] Free T4on 06-16-2021 Free T4 [Mass/Vol] 2.0 ng/dL High 0.9-1.7 [facility] Comment on above: Performed By: #### C MP, HBA1C, FREET3, FT4, TSH #### [address] [place] [address] Hemoglobin A1con 06-16-2021 Glucose [Mass/Vol] 169 mg/dL Normal [facility] Comment on above: Result Comment: eAG: (Estimated average glucose) is a calculated value from HgbA1c and is customer response representative of the average blood glucose level in the last 2-3 month period. Performed By: #### C MP, HBA1C, FREET3, FT4, TSH #### [address] [place] [address] HbA1c (Bld) [Mass fraction] 7.5 % High 4.3-5.6 [facility] Comment on above: Result Comment: [place] Diabetes Association guidelines indicate that patients with HgbA1c in the range 5.7-6.4% are at increased risk for development of diabetes, and intervention by lifestyle modification may be beneficial. HgbA1c greater or equal to 6.5% is considered diagnostic of diabetes. Performed By: #### C MP, HBA1C, FREET3, FT4, TSH #### [facility] [address], [place] [address] TSHon 06-16-2021 TSH Qn 2.200 m[IU]/L Normal 0.270-4.200 [facility] Comment on above: Performed By: #### C MP, HBA1C, FREET3, FT4, TSH #### [facility] [address], [place] [address] MRI BRAIN W WO CONTRASTon MRI BRAIN W WO CONTRAST MRI BRAIN WITHOU T CONTRAST: CLINICAL HISTORY: G37.9 GAMING HOST demyelinating disease (HCC) ICD10, multiple headaches , [...] Briana Rosas MD 09/26/18 Final result Normal [facility] Vital Signs Date Time Vital Sign Value Performing Clinician Arabella darling 12-08-2024 09:40-0400 Diastolic blood pressure 95 mm[Hg] Jeff Jon DO Work Phone: [facility] 12-08-2024 09:40-0400 Systolic blood pressure 154 mm[Hg] Jeff Jon DO Work Phone: [facility] 12-08-2024 09:37-0400 Body height 165.1 cm Jeff Shanecassi DO Work Phone: [facility] 12-08-2024 09:37-0400 Body mass index (BMI) [Ratio] 46.7 kg/m2 Jeff Jon DO Work Phone: [facility] 12-08-2024 09:37-0400 Body weight 127.45 kg Jeff Jon DO Work Phone: [facility] 12-08-2024 09:37-0400 Heart rate 85 /min Jeff Jon DO Work Phone: [facility] 12-08-2024 09:37-0400 Respiratory rate 20 /min Jeff Jon DO Work Phone: [facility] 12-08-2024 09:37-0400 SaO2% (BldA) [Mass fraction] 96 % Jeff Shanecassi DO Work Phone: [facility] 11-27-2024 11:36-0400 Body height 165.1 cm Jeff Jon DO Work Phone: [facility] 11-27-2024 11:36-0400 Body mass index (BMI) [Ratio] 46.4 kg/m2 Jeff Jon DO Work Phone: [facility] 11-27-2024 11:36-0400 Body temperature 97.9 [degF] Jeff Jon DO Work Phone: [facility] 11-27-2024 11:36-0400 Body weight 126.55 kg Jeff Jon DO Work Phone: [facility] 11-27-2024 11:36-0400 Diastolic blood pressure 92 mm[Hg] Jeff Jon DO Work Phone: [facility] 11-27-2024 11:36-0400 Heart rate 90 /min Jeff Jon DO Work Phone: [facility] 11-27-2024 11:36-0400 SaO2% (BldA) [Mass fraction] 95 % Jeff Dontrell DO Work Phone: [facility] 11-27-2024 11:36-0400 Systolic blood pressure 154 mm[Hg] Jeff Shanecassi DO Work Phone: [facility] 09-08-2024 10:10-0400 Diastolic blood pressure 112 mm[Hg] Jeff Jon DO Work Phone: [facility] 09-08-2024 10:10-0400 Systolic blood pressure 162 mm[Hg] Jeff Jon DO Work Phone: [facility] 09-08-2024 10:05-0400 Body height 165.1 cm Jeff Jon DO Work Phone: [facility] 09-08-2024 10:05-0400 Body mass index (BMI) [Ratio] 45.7 kg/m2 Jeff Dontrell DO Work Phone: [facility] 09-08-2024 10:05-0400 Body temperature 97.9 [degF] Jeff Jon DO Work Phone: [facility] 09-08-2024 10:05-0400 Body weight 124.73 kg Jeff Shanecassi DO Work Phone: [facility] 09-08-2024 10:05-0400 Heart rate 92 /min Jeff Jon DO Work Phone: [facility] 09-08-2024 10:05-0400 Respiratory rate 20 /min Jeff Jon DO Work Phone: [facility] 09-08-2024 10:05-0400 SaO2% (BldA) [Mass fraction] 96 % Jeff Jon DO Work Phone: [facility] 09-01-2024 14:36-0400 Body height 165.1 cm Jeff Jon DO Work Phone: [facility] 09-01-2024 14:36-0400 Body mass index (BMI) [Ratio] 46.9 kg/m2 Jeff Jon DO Work Phone: [facility] 09-01-2024 14:36-0400 Body temperature 97.6 [degF] Jeff Jon DO Work Phone: [facility] 09-01-2024 14:36-0400 Body weight 127.91 kg Jeff Jon DO Work Phone: [facility] 09-01-2024 14:36-0400 Diastolic blood pressure 86 mm[Hg] Jeff Jon DO Work Phone: [facility] 09-01-2024 14:36-0400 Heart rate 99 /min Jeff Jon DO Work Phone: [facility] 09-01-2024 14:36-0400 Systolic blood pressure 138 mm[Hg] Jeff Jon DO Work Phone: [facility] 08-01-2024 09:55-0400 Body height 165.1 cm Jeff Jon DO Work Phone: [facility] 08-01-2024 09:55-0400 Body weight 124.73 kg Jeff Jon DO Work Phone: [facility] 07-16-2024 10:31-0500 Body height 165.1 cm [facility] 07-16-2024 10:31-0500 Body mass index (BMI) [Ratio] 46 kg/m2 [facility] 07-16-2024 10:31-0500 Body weight 125.64 kg [facility] 06-13-2024 11:14-0500 Body height 165.1 cm [facility] 06-13-2024 11:14-0500 Body mass index (BMI) [Ratio] 46 kg/m2 [facility] 06-13-2024 11:14-0500 Body temperature 97.8 [degF] [facility] 06-13-2024 11:14-0500 Body weight 125.64 kg [facility] 06-13-2024 11:14-0500 Diastolic blood pressure 84 mm[Hg] [facility] 06-13-2024 11:14-0500 Heart rate 92 /min [facility] 06-13-2024 11:14-0500 SaO2% (BldA) [Mass fraction] 94 % [facility] 06-13-2024 11:14-0500 Systolic blood pressure 130 mm[Hg] [facility] 06-03-2024 11:45-0500 Body weight 125.81 kg [facility] 06-03-2024 11:45-0500 Diastolic blood pressure 80 mm[Hg] [facility] 06-03-2024 11:45-0500 Heart rate 91 /min [facility] 06-03-2024 11:45-0500 SaO2% (BldA) [Mass fraction] 97 % [facility] 06-03-2024 11:45-0500 Systolic blood pressure 140 mm[Hg] [facility] 04-11-2024 11:52-0500 Body height 165.1 cm [facility] 04-11-2024 11:52-0500 Body mass index (BMI) [Ratio] 45.1 kg/m2 [facility] 04-11-2024 11:52-0500 Body temperature 97.2 [degF] [facility] 04-11-2024 11:52-0500 Body weight 122.92 kg [facility] 04-11-2024 11:52-0500 Diastolic blood pressure 88 mm[Hg] [facility] 04-11-2024 11:52-0500 Heart rate 86 /min [facility] 04-11-2024 11:52-0500 SaO2% (BldA) [Mass fraction] 94 % [facility] 04-11-2024 11:52-0500 Systolic blood pressure 138 mm[Hg] [facility] 03-26-2024 11:37-0500 Body height 165.1 cm [facility] 03-26-2024 11:37-0500 Body mass index (BMI) [Ratio] 45.4 kg/m2 [facility] 03-26-2024 11:37-0500 Body temperature 97.4 [degF] [facility] 03-26-2024 11:37-0500 Body weight 123.83 kg [facility] 03-26-2024 11:37-0500 Diastolic blood pressure 84 mm[Hg] [facility] 03-26-2024 11:37-0500 Heart rate 78 /min [facility] 03-26-2024 11:37-0500 Respiratory rate 20 /min [facility] 03-26-2024 11:37-0500 SaO2% (BldA) [Mass fraction] 97 % [facility] 03-26-2024 11:37-0500 Systolic blood pressure 148 mm[Hg] [facility] 02-12-2024 11:53-0400 Diastolic blood pressure 90 mm[Hg] DO Jeff Jon Work Phone: [facility] 02-12-2024 11:53-0400 Heart rate 83 /min DO Jeff Jon Work Phone: [facility] 02-12-2024 11:53-0400 SaO2% (BldA) [Mass fraction] 97 % DO Jeff Jon Work Phone: [facility] 02-12-2024 11:53-0400 Systolic blood pressure 130 mm[Hg] DO Jeff Jon Work Phone: [facility] 01-14-2024 15:56-0400 Diastolic blood pressure 80 mm[Hg] DO Jeff Jon Work Phone: [facility] 01-14-2024 15:56-0400 Heart rate 82 /min DO Jeff Jon Work Phone: [facility] 01-14-2024 15:56-0400 SaO2% (BldA) [Mass fraction] 97 % DO Jeff Jon Work Phone: [facility] 01-14-2024 15:56-0400 Systolic blood pressure 142 mm[Hg] DO Jeff Jon Work Phone: [facility] 12-19-2023 14:19-0400 Diastolic blood pressure 80 mm[Hg] DO Jeff Jon Work Phone: [facility] 12-19-2023 14:19-0400 Heart rate 100 /min DO Jeff Jon Work Phone: [facility] 12-19-2023 14:19-0400 SaO2% (BldA) [Mass fraction] 96 % DO Jeff Jon Work Phone: [facility] 12-19-2023 14:19-0400 Systolic blood pressure 130 mm[Hg] DO Jeff Jon Work Phone: [facility] 12-05-2023 13:53-0400 Body weight 124.05 kg [facility] 12-05-2023 13:53-0400 Diastolic blood pressure 90 mm[Hg] [facility] 12-05-2023 13:53-0400 Heart rate 91 /min [facility] 12-05-2023 13:53-0400 SaO2% (BldA) [Mass fraction] 97 % [facility] 12-05-2023 13:53-0400 Systolic blood pressure 142 mm[Hg] [facility] 10-29-2023 14:41-0400 Body height 165.1 cm [facility] 10-29-2023 14:41-0400 Body mass index (BMI) [Ratio] 45.7 kg/m2 [facility] 10-29-2023 14:41-0400 Body weight 124.73 kg [facility] 10-29-2023 14:41-0400 Diastolic blood pressure 86 mm[Hg] [facility] 10-29-2023 14:41-0400 Heart rate 87 /min [facility] 10-29-2023 14:41-0400 Respiratory rate 18 /min [facility] 10-29-2023 14:41-0400 SaO2% (BldA) [Mass fraction] 97 % [facility] 10-29-2023 14:41-0400 Systolic blood pressure 142 mm[Hg] [facility] 09-26-2023 14:12-0400 Body height 165.1 cm [facility] 09-26-2023 14:12-0400 Body mass index (BMI) [Ratio] 46 kg/m2 [facility] 09-26-2023 14:12-0400 Body temperature 98.1 [degF] [facility] 09-26-2023 14:12-0400 Body weight 125.64 kg [facility] 09-26-2023 14:12-0400 Diastolic blood pressure 96 mm[Hg] [facility] 09-26-2023 14:12-0400 SaO2% (BldA) [Mass fraction] 95 % [facility] 09-26-2023 14:12-0400 Systolic blood pressure 152 mm[Hg] [facility] 08-28-2023 11:23-0400 Diastolic blood pressure 94 mm[Hg] [facility] 08-28-2023 11:23-0400 Heart rate 89 /min [facility] 08-28-2023 11:23-0400 SaO2% (BldA) [Mass fraction] 98 % [facility] 08-28-2023 11:23-0400 Systolic blood pressure 142 mm[Hg] [facility] 08-28-2023 10:49-0400 Body height 165.1 cm [facility] 08-28-2023 10:49-0400 Body mass index (BMI) [Ratio] 45.7 kg/m2 [facility] 08-28-2023 10:49-0400 Body weight 124.73 kg [facility] 05-10-2023 14:10-0500 Diastolic blood pressure 90 mm[Hg] Casper Nguyen [facility] 05-10-2023 14:10-0500 Heart rate 81 /min Casper Nguyen [facility] 05-10-2023 14:10-0500 Mean blood pressure 114 mm[Hg] Casper Nguyen [facility] 05-10-2023 14:10-0500 Respiratory rate 14 /min Casper Nguyen [facility] 05-10-2023 14:10-0500 Systolic blood pressure 162 mm[Hg] Casper Nguyen [facility] 03-19-2023 14:00-0400 Body height 165.1 cm Carlos Terrazas Other [facility] 03-19-2023 14:00-0400 Body mass index (BMI) [Ratio] 45.09 kg/m2 Carlos Terrazas Other [facility] 03-19-2023 14:00-0400 Body temperature 97.8 [degF] Carlos Terrazas Other [facility] 03-19-2023 14:00-0400 Body weight 122.93 kg Carlos Terrazas Other [facility] 03-19-2023 14:00-0400 Respiratory rate 20 /min Carlos Terrazas Other [facility] 03-19-2023 14:00-0400 SaO2% (BldA) [Mass fraction] 98 % Carlos Terrazas Other [facility] 02-22-2023 08:10-0400 Body height 165.1 cm Jeff Jon Other [facility] 02-22-2023 08:10-0400 Body mass index (BMI) [Ratio] 45.26 kg/m2 Jeff Jon Other [facility] 02-22-2023 08:10-0400 Body temperature 97.8 [degF] Jeff Jon Other [facility] 02-22-2023 08:10-0400 Body weight 123.38 kg Jeff Jon Other [facility] 02-22-2023 08:10-0400 Diastolic blood pressure 104 mm[Hg] Jeff Jon Other [facility] 02-22-2023 08:10-0400 Respiratory rate 18 /min Jeff Jon Other [facility] 02-22-2023 08:10-0400 SaO2% (BldA) [Mass fraction] 99 % Jeff Jon Other [facility] 02-22-2023 08:10-0400 Systolic blood pressure 158 mm[Hg] Jeff Dontrell Other [facility] 10-24-2022 16:50-0400 Body height 165.1 cm Lacie Manuel Other [facility] 10-24-2022 16:50-0400 Body mass index (BMI) [Ratio] 45.09 kg/m2 Lacie Manuel Other [facility] 10-24-2022 16:50-0400 Body temperature 98 [degF] Lacie Manuel Other [facility] 10-24-2022 16:50-0400 Body weight 122.93 kg Lacie Manuel Other [facility] 10-24-2022 16:50-0400 Diastolic blood pressure 81 mm[Hg] Lacie Manuel Other [facility] 10-24-2022 16:50-0400 Respiratory rate 18 /min Lacie Kaleb Other [facility] 10-24-2022 16:50-0400 SaO2% (BldA) [Mass fraction] 95 % Lacie Kaleb Other [facility] 10-24-2022 16:50-0400 Systolic blood pressure 148 mm[Hg] Lacie Manuel Other [facility] 10-17-2022 08:45-0400 Body height 165.1 cm Carlos Parkno Other [facility] 10-17-2022 08:45-0400 Body mass index (BMI) [Ratio] 44.76 kg/m2 [facility] Other [facility] Other 10-17-2022 08:45-0400 Body temperature 96.8 [degF] Ryleyer Mk Other [employer] Other 10-17-2022 08:45-0400 Body weight 122.02 kg Christkyleer Mk Other [employer] Other 10-17-2022 08:45-0400 Diastolic blood pressure 80 mm[Hg] Christkyleer Mk Other [employer] Other 10-17-2022 08:45-0400 Respiratory rate 20 /min Zenonopher Mk Other [employer] Other 10-17-2022 08:45-0400 SaO2% (BldA) [Mass fraction] 98 % Ryleyer Mk Other [employer] Other 10-17-2022 08:45-0400 Systolic blood pressure 153 mm[Hg] Christkyleer Mk Other [employer] Other 09-13-2022 10:15-0400 Body height 165.1 cm Christkyleer Mk Other [employer] Other 09-13-2022 10:15-0400 Body mass index (BMI) [Ratio] 43.43 kg/m2 Christopher Mk Other [employer] Other 09-13-2022 10:15-0400 Body temperature 97.8 [degF] Ryleyer Mk Other [employer] Other 09-13-2022 10:15-0400 Body weight 118.39 kg Christopher Mk Other [employer] Other 09-13-2022 10:15-0400 Diastolic blood pressure 100 mm[Hg] Christkyleer Mk Other [employer] Other 09-13-2022 10:15-0400 Respiratory rate 20 /min Christkyleer Mk Other [employer] Other 09-13-2022 10:15-0400 SaO2% (BldA) [Mass fraction] 100 % Christopher Mk Other [employer] Other 09-13-2022 10:15-0400 Systolic blood pressure 180 mm[Hg] Zenonopher Mk Other [employer] Other 08-11-2022 13:35-0400 Body height 165.1 cm Lacie Kaleb Other [employer] Other 08-11-2022 13:35-0400 Body mass index (BMI) [Ratio] 26.62 kg/m2 Lacie Manuel Other [employer] Other 08-11-2022 13:35-0400 Body temperature 97.8 [degF] Lacie Manuel Other [employer] Other 08-11-2022 13:35-0400 Body weight 72.58 kg Lacie Manuel Other [employer] Other 08-11-2022 13:35-0400 Respiratory rate 18 /min Lacie Manuel Other [employer] Other 08-11-2022 13:35-0400 SaO2% (BldA) [Mass fraction] 98 % Lacie Kaleb Other [employer] Other 07-12-2022 13:20-0500 Body height 165.1 cm Jeff Jon Other [employer] Other 07-12-2022 13:20-0500 Body mass index (BMI) [Ratio] 43.26 kg/m2 Jeff Jon Other [employer] Other 07-12-2022 13:20-0500 Body temperature 96.1 [degF] Jeff Jon Other [employer] Other 07-12-2022 13:20-0500 Body weight 117.94 kg Jeff Jon Other [employer] Other 07-12-2022 13:20-0500 Diastolic blood pressure 84 mm[Hg] Jeff Jon Other [employer] Other 07-12-2022 13:20-0500 Respiratory rate 18 /min Jeff Jon Other [employer] Other 07-12-2022 13:20-0500 SaO2% (BldA) [Mass fraction] 99 % Jeff Jon Other [employer] Other 07-12-2022 13:20-0500 Systolic blood pressure 138 mm[Hg] Jeff Jon Other [employer] Other 04-11-2022 13:40-0500 Body height 165.1 cm Jeff Jon Other [employer] Other 04-11-2022 13:40-0500 Body mass index (BMI) [Ratio] 43.26 kg/m2 Jeff Acostacassi Other [employer] Other 04-11-2022 13:40-0500 Body temperature 97.5 [degF] Jeff Jon Other [employer] Other 04-11-2022 13:40-0500 Body weight 117.94 kg Jeff Jon Other [employer] Other 04-11-2022 13:40-0500 Diastolic blood pressure 104 mm[Hg] Jeff Jon Other [employer] Other 04-11-2022 13:40-0500 Respiratory rate 18 /min Jeff Jon Other [employer] Other 04-11-2022 13:40-0500 SaO2% (BldA) [Mass fraction] 98 % Jeff Jon Other [employer] Other 04-11-2022 13:40-0500 Systolic blood pressure 144 mm[Hg] Jeff Jon Other [employer] Other 12-06-2021 12:00-0400 Body height 165.1 cm Lorena Jacky Other [employer] Other 12-06-2021 12:00-0400 Body mass index (BMI) [Ratio] 45.09 kg/m2 Lorena Jacky Other [employer] Other 12-06-2021 12:00-0400 Body temperature 96.9 [degF] Lorena Jacky Other [employer] Other 12-06-2021 12:00-0400 Body weight 122.93 kg Lorena Jacky Other [employer] Other 12-06-2021 12:00-0400 Diastolic blood pressure 88 mm[Hg] Lorena Jacky Other [employer] Other 12-06-2021 12:00-0400 Respiratory rate 20 /min Lorena Jacky Other [employer] Other 12-06-2021 12:00-0400 SaO2% (BldA) [Mass fraction] 99 % Lorena Jacky Other [employer] Other 12-06-2021 12:00-0400 Systolic blood pressure 148 mm[Hg] Lorena Jacky Other [employer] Other 10-20-2021 11:30-0400 Body height 165.1 cm Jeff Jon Other [employer] Other 10-20-2021 11:30-0400 Body mass index (BMI) [Ratio] 46.09 kg/m2 Jeff Dontrell Other [employer] Other 10-20-2021 11:30-0400 Body temperature 96.8 [degF] Jeff Jon Other [employer] Other 10-20-2021 11:30-0400 Body weight 125.65 kg Jeff Acostacassi Other [employer] Other 10-20-2021 11:30-0400 Diastolic blood pressure 88 mm[Hg] Jeff Acostacassi Other [employer] Other 10-20-2021 11:30-0400 Respiratory rate 18 /min Jeff Acostacassi Other [employer] Other 10-20-2021 11:30-0400 SaO2% (BldA) [Mass fraction] 96 % Jeff Jon Other [employer] Other 10-20-2021 11:30-0400 Systolic blood pressure 148 mm[Hg] Jeff Acostacassi Other [employer] Other 10-07-2021 13:46-0400 Body weight 125.83 kg Leena Seymour MD Work Phone: [facility] 10-07-2021 13:46-0400 Diastolic blood pressure 93 mm[Hg] Leena Seymour MD Work Phone: [facility] 10-07-2021 13:46-0400 Heart rate 94 /min Leena Seymour MD Work Phone: [facility] 10-07-2021 13:46-0400 Systolic blood pressure 155 mm[Hg] Leena Seymour MD Work Phone: [facility] 03-15-2021 13:40-0400 Body height 165.1 cm Jeff Jon Other [employer] Other 03-15-2021 13:40-0400 Body mass index (BMI) [Ratio] 45.51 kg/m2 Jeff Jon Other [employer] Other 03-15-2021 13:40-0400 Body temperature 97.7 [degF] Jeff Jon Other [employer] Other 03-15-2021 13:40-0400 Body weight 124.06 kg Jeff Jon Other [employer] Other 03-15-2021 13:40-0400 Diastolic blood pressure 92 mm[Hg] Jeff Jon Other [employer] Other 03-15-2021 13:40-0400 Respiratory rate 20 /min Jeff Jon Other [employer] Other 03-15-2021 13:40-0400 SaO2% (BldA) [Mass fraction] 98 % Jeff Jon Other [employer] Other 03-15-2021 13:40-0400 Systolic blood pressure 146 mm[Hg] Jeff Jon Other [employer] Other 02-21-2021 11:00-0400 Body height 165.1 cm Carlos Terrazas Other [employer] Other 02-21-2021 11:00-0400 Body mass index (BMI) [Ratio] 44.93 kg/m2 Carlos Terrazas Other [employer] Other 02-21-2021 11:00-0400 Body temperature 97.5 [degF] Carlos Terrazas Other [employer] Other 02-21-2021 11:00-0400 Body weight 122.47 kg Carlos Phillipsdano Other [employer] Other 02-21-2021 11:00-0400 Diastolic blood pressure 92 mm[Hg] Carlos Phillipsdano Other [employer] Other 02-21-2021 11:00-0400 Respiratory rate 20 /min Ryleyer Mk Other [employer] Other 02-21-2021 11:00-0400 SaO2% (BldA) [Mass fraction] 99 % Carlos Phillipsdano Other [employer] Other 02-21-2021 11:00-0400 Systolic blood pressure 154 mm[Hg] Carlos Parkno Other [employer] Other Encounters Encounter Date Encounter Type Care Provider Facility Start: 01-05-2025 End: 01-05-2025 ambulatory [facility] Start: 12-08-2024 End: 12-08-2024 ambulatory Jeff Jon DO Work Phone: [facility] Work Phone: Start: 12-08-2024 End: 12-08-2024 Patient encounter procedure Lorena Moore APRN [facility] Work Phone: Start: 11-27-2024 End: 11-27-2024 ambulatory Jeff Jon DO Work Phone: [facility] Work Phone: Start: 11-27-2024 End: 11-27-2024 Patient encounter procedure Jeff Jon DO -[facility] [place] Work Phone: Start: 11-26-2024 End: 11-26-2024 ambulatory Jeff Jon Facility:[facility] Start: 11-26-2024 Non-patient / Non-visit Jeff Peters in [facility] Work Phone: Start: 11-20-2024 Non-patient / Non-visit Jeff Peters in [facility] Work Phone: Start: 10-24-2024 End: 10-24-2024 ambulatory Jeff Jon DO Work Phone: [facility] Work Phone: Start: 10-24-2024 End: 10-24-2024 Patient encounter procedure Jeff Jon DO Work Phone: [facility] Work Phone: Start: 09-08-2024 End: 09-08-2024 ambulatory Jeff Jon DO Work Phone: [facility] Work Phone: Start: 09-08-2024 End: 09-08-2024 Patient encounter procedure Jeff Jon DO Work Phone: [facility] Physician [facility] Work Phone: Start: 09-05-2024 Non-patient / Non-visit Jeff Jon DO Work Phone: [facility] Work Phone: Start: 09-01-2024 End: 09-01-2024 ambulatory Jeff Jon Work Phone: [facility] Work Phone: Start: 09-01-2024 End: 09-01-2024 Patient encounter procedure Jeff Jon DO Work Phone: [facility] Physician [facility] [place] Work Phone: Start: 08-25-2024 End: 08-25-2024 ambulatory [facility] Start: 08-06-2024 Non-patient / Non-visit Jeff Jon DO Work Phone: [facility] Physician [facility] Work Phone: Start: 08-05-2024 Non-patient / Non-visit Jeff Jon DO Work Phone: [facility] Physician [facility] Work Phone: Start: 08-01-2024 End: 08-01-2024 ambulatory Jeff Jon DO Work Phone: [facility] Work Phone: Start: 08-01-2024 End: 08-01-2024 Departed Referred Jeff Jon DO Work Phone: [facility] Work Phone: Start: 07-30-2024 End: 07-30-2024 Patient encounter procedure Jeff Jon DO Work Phone: [facility] [place] Work Phone: Start: 07-30-2024 End: 07-30-2024 ambulatory Jeff Jon DO Work Phone: [facility] Work Phone: Start: 07-16-2024 End: 07-16-2024 ambulatory [facility] Work Phone: Start: 07-16-2024 End: 07-16-2024 Patient encounter procedure [facility] Work Phone: Start: 06-26-2024 ambulatory [facility] Work Phone: Start: 06-26-2024 Non-patient / Non-visit [facility] Phys[facility] Work Phone: Start: 06-13-2024 End: 06-13-2024 ambulatory [facility] Work Phone: Start: 06-13-2024 End: 06-13-2024 Patient encounter procedure [facility] [place] Work Phone: Start: 06-03-2024 End: 06-03-2024 ambulatory [facility] Work Phone: Start: 06-03-2024 End: 06-03-2024 Patient encounter procedure [facility] Work Phone: Start: 04-11-2024 End: 04-11-2024 Patient encounter procedure [facility] [place] Work Phone: Start: 03-26-2024 End: 03-26-2024 ambulatory [facility] Work Phone: Start: 03-26-2024 End: 03-26-2024 Patient encounter procedure [facility] Phys[facility] Disease Work Phone: Start: 03-20-2024 Non-patient / Non-visit [facility] Work Phone: Start: 02-12-2024 End: 02-12-2024 ambulatory DO Jeff Jon Work Phone: [facility] Work Phone: Start: 02-12-2024 End: 02-12-2024 Patient encounter procedure DO Jeff Jon Work Phone: [facility] Physician [facility] Work Phone: Start: 02-05-2024 End: 02-05-2024 ambulatory DO Jeff Jon Work Phone: [facility] Work Phone: Start: 02-05-2024 End: 02-05-2024 Patient encounter procedure DO Jeff Jon Work Phone: [facility] Physician [facility] Work Phone: Start: 02-05-2024 Non-patient / Non-visit DO Dane Jon Work Phone: [facility] Work Phone: Start: 01-28-2024 ambulatory Jeff VERA acility:[facility] Start: 01-14-2024 End: 01-14-2024 ambulatory DO eJff Jon Work Phone: [facility] Work Phone: Start: 01-14-2024 End: 01-14-2024 Patient encounter procedure DO Jeff Jon Work Phone: [facility] Work Phone: Start: 01-07-2024 ambulatory Jeff VERA acility:[facility] Start: 12-27-2023 Non-patient / Non-visit DO Dane Jon Work Phone: [facility] Work Phone: Start: 12-27-2023 End: 12-27-2023 ambulatory DO Jeff Jon Work Phone: [facility] Work Phone: Start: 12-27-2023 End: 12-27-2023 Patient encounter procedure DO Jeff Jon Work Phone: [facility] Work Phone: Start: 12-19-2023 End: 12-19-2023 ambulatory DO Jeff Jon Work Phone: [facility] Work Phone: Start: 12-19-2023 End: 12-19-2023 Patient encounter procedure DO Jeff Jon Work Phone: [facility] Physician [facility] Work Phone: Start: 12-12-2023 ambulatory [facility] Start: 12-12-2023 End: 12-12-2023 ambulatory Jeff [facility] Start: 12-05-2023 End: 12-05-2023 ambulatory DO Jeff Jon Work Phone: [facility] Work Phone: Start: 12-05-2023 End: 12-05-2023 Patient encounter procedure [facility] Work Phone: Start: 10-29-2023 End: 10-29-2023 ambulatory [facility] Work Phone: Start: 10-29-2023 End: 10-29-2023 Patient encounter procedure [facility] [place] Work Phone: Start: 10-25-2023 Non-patient / Non-visit [facility] Work Phone: Start: 10-23-2023 End: 10-23-2023 ambulatory JENNIE H TIMMIS Not Available Start: 09-26-2023 End: 09-26-2023 ambulatory [facility] Work Phone: Start: 09-26-2023 End: 09-26-2023 Patient encounter procedure [facility] [place] Work Phone: Start: 09-24-2023 End: 09-24-2023 ambulatory JENNIE H TIMMIS Not Available Start: 09-18-2023 End: 09-18-2023 ambulatory SVETLANA SINGH Not Available Start: 09-05-2023 End: 09-05-2023 ambulatory JENNIE H TIMMIS Not Available Start: 08-28-2023 End: 08-28-2023 ambulatory [facility] Work Phone: Start: 08-28-2023 End: 08-28-2023 Patient encounter procedure [facility] [place] Work Phone: Start: 08-23-2023 Non-patient / Non-visit [facility] Phys[facility] Work Phone: Start: 08-21-2023 End: 08-21-2023 ambulatory JENNIE H TIMMIS Not Available Start: 06-29-2023 End: 06-29-2023 ambulatory Jeff Jon Other [employer] Other Start: 06-29-2023 Telephone encounter Jeff Jon [facility] [place] Start: 05-10-2023 End: 05-11-2023 ambulatory DO Casper Nguyen Facility:[facility] Start: 05-10-2023 End: 05-10-2023 Pain Management Casper Nguyen [facility] Start: 04-30-2023 End: 04-30-2023 ambulatory SHARON D HILLS Not Available Start: 04-24-2023 End: 04-24-2023 ambulatory SHARON D HILLS Not Available Start: 04-18-2023 End: 04-18-2023 ambulatory SHARON D HILLS Not Available Start: 04-04-2023 End: 04-04-2023 ambulatory Jeff Jon Other [employer] Other Start: 04-04-2023 Telephone encounter Jeff Jon [facility] [place] Start: 03-19-2023 End: 03-19-2023 ambulatory Carlos Terrazas Other [employer] Other Start: 03-19-2023 Office outpatient vi sit 15 minutes Carlos Terrazas [facility] Start: 02-22-2023 End: 02-22-2023 ambulatory Jeff Jon Other [employer] Other Start: 02-22-2023 Office outpatient vi sit 25 minutes Jeff Jon [facility] [place] Start: 11-24-2022 End: 11-24-2022 ambulatory Jeff Jon Other [employer] Other Start: 11-24-2022 Telephone encounter Jeff Jon [facility] [place] Start: 10-24-2022 End: 10-24-2022 ambulatory Lacie Manuel Other [facility] [employer] Other Start: 10-24-2022 Office outpatient vi sit 15 minutes Lacie Manuel [facility] Start: 10-17-2022 End: 10-17-2022 ambulatory Christopher Mk Other [employer] Other Start: 10-17-2022 Office outpatient vi sit 15 minutes Christopher Mk [facility] Start: 10-03-[address] Gela Moreau Facility: Start: 09-27-2022 Patient encounter procedure Jeff Jon Work Phone: [place] [address] DO Work Phone: Start: 09-27-[address] Jeff Jon Facility: Start: 09-14-2022 Encounter for other preprocedural examination [facility] Start: 09-14-2022 Encounter for preprocedural cardiovascular examination [facility] Start: 09-14-2022 Encounter for preprocedural laboratory examination [facility] Start: 09-14-2022 Encounter for preprocedural respiratory examination [facility] Start: 09-13-2022 End: 09-13-2022 ambulatory Carlos Parkno Other [facility] [employer] Other Start: 09-13-2022 Office outpatient vi sit 25 minutes Christopher Mk [facility] Start: 09-12-[address] JEFF JON Facilit y:[facility] Start: 09-08-2022 End: 09-09-2022 Encounter for preprocedural laboratory examination DR JEFF JON Facility:[facility] Start: 09-08-2022 End: 09-09-[address] JEFF JON [employer] Other Start: 09-08-2022 Telephone encounter Jeff Jon [facility] Start: 09-01-2022 End: 09-01-2022 ambulatory Jeff Jon Other [employer] Other Start: 09-01-2022 Telephone encounter Jeff Jon [facility] [place] Start: 08-21-2022 End: 08-21-2022 ambulatory ANASTASIA WADE Facility:[facility] Start: 08-18-2022 End: 08-18-[address] Jeff Jon [employer] Other Start: 08-18-2022 Telephone encounter Jeff Jon [facility] [place] Start: 08-17-2022 End: 08-17-2022 ambulatory MARCELL ASHLEY . Facility:[facility] Start: 08-14-2022 End: 08-14-2022 ambulatory Jeff Jon Other [employer] Other Start: 08-14-2022 Telephone encounter Jeff Jon [facility] [place] Start: 08-11-2022 End: 08-11-2022 ambulatory Jeff Jon Other [employer] Other Start: 08-11-2022 Office outpatient vi sit 15 minutes Lacie Manuel [facility] Start: 08-11-2022 Telephone encounter Jeff Jon [facility] [place] Start: 08-07-2022 End: 08-07-2022 ambulatory Jeff Jon Other [employer] Other Start: 08-07-2022 Telephone encounter Jeff Jon [facility] [place] Start: 07-12-2022 End: 07-12-2022 ambulatory Jeff Jon Other [employer] Other Start: 07-12-2022 Office outpatient vi sit 25 minutes Jeff Jon [facility] [place] Start: 07-12-2022 Telephone encounter Jeff Jon [facility] [place] Start: 07-10-2022 End: 07-11-[address] JEFF JON Facility:[facility] Start: 06-14-2022 End: 06-14-2022 ambulatory Jeff Jon Other [employer] Other Start: 06-14-2022 Telephone encounter Jeff Jon [facility] [place] Start: 06-07-2022 End: 06-07-2022 ambulatory Jeff Jon Other [employer] Other Start: 06-07-2022 Telephone encounter Jeff Jon [facility] [place] Start: 04-11-2022 End: 04-11-2022 ambulatory Jeff Jon Other [employer] Other Start: 04-11-2022 Office outpatient vi sit 25 minutes Jeff Jon [facility] [place] Start: 04-05-2022 End: 04-06-[address] JEFF JON Facility: Start: 04-04-2022 End: 04-04-2022 ambulatory Jeff Jon Other [employer] Other Start: 04-04-2022 Telephone encounter Jeff Jon [facility] [place] Start: 04-03-2022 End: 04-03-2022 ambulatory Jeff Jon Other [employer] Other Start: 04-03-2022 Telephone encounter Jeff Jon [facility] [place] Start: 03-21-2022 End: 03-21-2022 ambulatory Jeff Jon Other [employer] Other Start: 03-21-2022 Telephone encounter Jeff Jon [facility] [place] Start: 12-09-2021 End: 12-09-2021 ambulatory Jeff Jon Other [employer] Other Start: 12-09-2021 Telephone encounter Jeff Jon [facility] [place] Start: 12-06-2021 End: 12-06-2021 ambulatory Lorena Jacky Other [employer] Other Start: 12-06-2021 Office outpatient vi sit 25 minutes Lorena Jacky [facility] Start: 12-06-2021 Telephone encounter Lorena Jacky [facility] Start: 11-29-2021 End: 11-30-[address] JEFF JON Facility: Start: 10-20-2021 End: 10-20-2021 ambulatory Jeff Jon Other [employer] Other Start: 10-20-2021 Office outpatient vi sit 25 minutes Jeff Jon [facility] Start: 10-13-2021 End: 10-13-2021 ambulatory JEFF JON Facility:[facility] Start: 10-13-2021 End: 10-13-2021 ambulatory Anila Jimenez APRN.[employer] Work Phone: Endocrinology Comment on above: Type 2 diabetes shreya itus with hyperglycemia, without long-term current use of insulin (HCC) (Primary Dx); Heraclio's disease Start: 10-13-2021 End: 10-13-2021 Telemedicine consultation with patient Anila Jimenez APRN.PERSONAL CARE WORKER Work Phone: [facility] Start: 10-13-2021 Telephone encounter Anila lee [employer].PERSON[employer]ARE WORKER Work Phone: Endocrinology Comment on above: Appointment Start: 10-07-2021 End: 10-08-2021 ambulatory JEFF JON Facility:[facility] Start: 10-07-2021 End: 10-07-2021 Patient encounter procedure Leena Seymour MD Work Phone: Rheumatology Comment on above: Fibromyalgia (Primar y Dx); ALDEN (generalized anxiety disorder) Start: 10-03-2021 Telephone encounter Asad adrian MD Work Phone: Endocrinology Comment on above: Lab Orders Start: 09-29-[address] JEFF JON Facilit y:[facility] Start: 09-28-2021 Telephone encounter Jeff Jon [facility] Start: 09-28-2021 End: 09-28-[address] JEFF JON [employer] Other Start: 09-20-2021 End: 09-20-2021 ambulatory Carlos Parkno Other [employer] Other Start: 09-20-2021 Telephone encounter Carlos Phillips marquita [facility] Start: 08-22-2021 End: 08-22-2021 ambulatory Carlos Parkno Other [employer] Other Start: 08-22-2021 Telephone encounter Jeff Jon [facility] [place] Start: 07-22-2021 End: 07-22-2021 ambulatory ASAD SKUGOR Facility:[facility] Start: 07-14-2021 End: 07-14-2021 ambulatory Jeff Jon Other [employer] Other Start: 07-14-2021 Telephone encounter Jeff Jon [facility] [place] Start: 07-04-2021 End: 07-04-2021 ambulatory Jeff Jon Other [employer] Other Start: 07-04-2021 Telephone encounter Jeff Jon [facility] [place] Start: 06-28-2021 End: 06-28-2021 ambulatory Jeff Jon Other [employer] Other Start: 06-28-2021 Telephone encounter Jeff Jon [facility] [place] Start: 06-22-2021 Telephone encounter Asad adrian MD Work Phone: Endocrinology Comment on above: Patient Question Start: 06-16-2021 End: 06-17-2021 ambulatory JEFF JON Facility:[facility] Start: 06-16-2021 End: 06-17-2021 ambulatory ASAD SKUGOR Facility:[facility] Start: 05-25-2021 End: 05-25-2021 ambulatory Jeff Jon Other [employer] Other Start: 05-25-2021 Telephone encounter Jeff Jon [facility] [place] Start: 05-11-2021 End: 05-11-2021 ambulatory Jeff Jon Other [employer] Other Start: 05-11-2021 Telephone encounter Jeff Shanecassi [facility] Start: 04-27-2021 End: 04-27-2021 ambulatory Jeff Jon Other [employer] Other Start: 04-27-2021 Telephone encounter Jeff Jon [facility] Start: 04-19-2021 End: 04-19-2021 ambulatory Carl Tovardiff Other [employer] Other Start: 04-19-2021 Telephone encounter Carl [facility] Start: 03-16-2021 Telephone encounter Vandana Root [facility] Start: 03-15-2021 Office outpatient vi sit 15 minutes Jeff Jon [facility] Start: 02-24-2021 Telephone encounter Jeff Dontrell [facility] Start: 02-21-2021 Office outpatient vi sit 15 minutes Carlos Terrazas [facility] Start: 09-26-2018 End: 09-29-2018 Patient encounter procedure JEFF JON [facility] Procedures Date Procedure Procedure Detail Performing Clinician Start: 07-30-2024 Computed tomography of abdomen and pelvis with contrast Jeff Jon DO Work Phone: Start: 12-05-2023 X-ray of lumbar spin e, [...] Treatment Date Care Activity Detail Author Start: 11-26-2024 Urine culture [facility] Start: 08-14-2024 Esophagogastroduodenoscopy DH EGD/Colonoscopy (Not Applicable) [facility] Start: 06-26-2024 Patient referral [facility] Work Phone: Start: 06-16-2024 DIABETES SCREEN DIABETES SCREEN [facility] Start: 04-11-[address] [facility] Work Phone: Start: 09-26-[address] [facility] Work Phone: Start: 10-06-2022 Adult depression screening assessment DEPRESSION SCREENING [facility] Start: 04-09-2022 Hemoglobin A1c/Hemoglobin.total in Blood HBA1C [facility] Start: 01-19-2022 Influenza vaccination INFLUENZA (#1) [facility] Start: 11-25-2021 End: 01-25-2022 T3 FREE BLD T3 FREE BLD Lab Routine Heraclio's disease Expected: 11/25/2021, Expires: 01/25/2022 [facility] Work Phone: Comment on above: Expected: 11/25/2021, Expires: 2 Start: 11-25-2021 End: 01-25-2022 T4 FREE/FREE THYROX T4 FREE/FREE THYROX Lab Routine Heraclio's disease Expected: 11/25/2021, Expires: 01/25/2022 [facility] Work Phone: Comment on above: Expected: 11/25/2021, Expires: 2 Start: 11-25-2021 End: 01-25-2022 Thyrotropin [Units/volume] in Serum or Plasma TSH BLD Lab Routine Heraclio's disease Expected: 11/25/2021, Expires: 01/25/2022 [facility] Work Phone: Comment on above: Expected: 11/25/2021, Expires: 2 Start: 10-07-2021 End: 12-07-2021 PROTEIN ELECTROPHORESIS SERUM W/INTERP [facility] Work Phone: Comment on above: Expected: 10/07/2021, Expires: 2 Start: 10-05-2021 End: 12-05-2021 Comprehensive metabolic 2000 panel - Serum or Plasma COMP METABOLIC PANEL Lab Routine Controlled type 2 diabetes mellitus without complication, without long-term current use of insulin (HCC) Expected: 10/05/2021, Expires: 12/05/2021 [facility] Work Phone: Comment on above: Expected: 10/05/2021, Expires: 2 Start: 10-05-2021 End: 12-05-2021 Hemoglobin A1c/Hemoglobin.total in Blood HGB A1C Lab Routine Controlled type 2 diabetes mellitus without complication, without long-term current use of insulin ([facility]) Expected: 10/05/2021, Expires: 12/05/2021 [facility] Work Phone: Comment on above: Expected: 10/05/2021, Expires: 2 Start: 10-05-2021 End: 12-05-2021 T3 FREE BLD T3 FREE BLD Lab Routine Acquired hypothyroidism Expected: 10/05/2021, Expires: 12/05/2021 [facility] Work Phone: Comment on above: Expected: 10/05/2021, Expires: 2 Start: 10-05-2021 End: 12-05-2021 T4 FREE/FREE THYROX T4 FREE/FREE THYROX Lab Routine Acquired hypothyroidism Expected: 10/05/2021, Expires: 12/05/2021 [facility] Work Phone: Comment on above: Expected: 10/05/2021, Expires: 2 Start: 10-05-2021 End: 12-05-2021 Thyrotropin [Units/volume] in Serum or Plasma TSH BLD Lab Routine Acquired hypothyroidism Expected: 10/05/2021, Expires: 12/05/2021 [facility] Work Phone: Comment on above: Expected: 10/05/2021, Expires: 2 Start: 05-21-2021 DEPRESSION ASSESSMENT DEPRESSION ASSESSMENT [facility] Start: 02-23-2021 COVID-19 VACCINE (3 - Booster for Pfizer series) COVID-19 VACCINE (3 - Booster for Pfizer series) [facility] Start: 11-18-2020 COVID-19 VACCINE (3 - Booster for Pfizer series) COVID-19 VACCINE (3 - Booster for Pfizer series) [facility] Start: 09-10-2017 SHINGRIX VACCINE (1 of 2) SHINGRIX VACCINE (1 of 2) [facility] Start: 09-10-2012 COLOGUARD (FIT-DNA) COLOGUARD (FIT-DNA) [facility] Start: 09-10-2012 Colonoscopy COLONOSCOPY [facility] Start: 09-10-2012 COLORECTAL CANCER SCREENING COLORECTAL CANCER SCREENING [facility] Start: 09-10-[address] COLONOGRAPHY [facility] Start: 09-10-2012 FECAL OCCULT BLOOD FECAL OCCULT BLOOD [facility] Start: 09-10-2012 LIPID SCREEN LIPID SCREEN [facility] Start: 09-10-2012 SIGMOIDOSCOPY SIGMOIDOSCOPY [facility] Start: 2007 Mammography MAMMOGRAM [facility] Start: 09-10-1997 HPV TESTING HPV TESTING [facility] Start: 09-10-1988 PAP TESTING PAP TESTING [facility] Start: 09-10-1986 HEPATITIS B (1 of 3 - Risk 3-dose series) HEPATITIS B (1 of 3 - Risk 3-dose series) [facility] Start: 09-10-1986 Urine microalbumin profile DTAP,TDAP,TD (1 - Tdap) [facility] Start: 09-10-1985 ANNUAL PCP TEAM CHRONIC DISEASE VISIT ANNUAL PCP TEAM CHRONIC DISEASE VISIT [facility] Start: 09-10-1985 Hepatitis B surface antibody level LDL CHOLESTEROL [facility] Start: 09-10-1985 HIV SCREENING HIV SCREENING [facility] Start: 1979 Adult depression screening assessment DEPRESSION SCREENING [facility] Start: 09-10-1977 3 comp foot exam completed DIABETIC FOOT EXAM [facility] Start: 09-10-1977 Hepatitis B screening URINE ALBUMIN:CREATININE RATIO [facility] Start: 09-10-1977 Hepatitis C antibody, confirmatory test DILATED RETINAL EXAM [facility] Start: 09-10-1973 PNEUMOCOCCAL (1 - PCV) PNEUMOCOCCAL (1 - PCV) [facility] Start: 1967 HEPATITIS B (1 of 3 - 3-dose series) HEPATITIS B (1 of 3 - 3-dose series) [facility] Antibody to Scl-70 measurement [facility] Comprehensive metabo lic 1999 panel - Serum or Plasma [facility] Comprehensive metabo lic 1999 panel - Serum or Plasma [facility] Comprehensive metabo lic 1999 panel - Serum or Plasma [facility] CT Abdomen and Pelvis WO contrast [facility] Insulin [Units/volum e] in Serum or Plasma [facility] Patient referral [facility] Work Phone: Rheumatoid factor [U nits/volume] in Serum or Plasma [facility] Urine culture [facility] XR Hip - left 2 [facility] XR Hip - right 2 Views [facility] XR Lumbar spine 4 Views [facility] XR Shoulder - left Views [facility] Immunizations Immunization Date Immunization Notes Care Provider Bryon cuenca 03-15-2021 influenza, seasonal, injectable Patient Objection Vandana Jordan Other [employer] [facility] [employer] Other 09-23-2020 COVID-19 Vaccine Pfizer - Documentation Purposes Only Christopher Mk Other [facility] 09-02-2020 COVID-19 Vaccine Pfizer - Documentation Purposes Only Christopher Mk Other [facility] 09-09-2018 Rocephin 500 mg Zenonopher Mk Other [employer] [facility] Other 08-11-2016 Toradol per 15 mg Jose Enrique r Mk Other [employer] [facility] Other 02-09-2015 TB Test Carlos Terrazas Other [employer] Other 12-16-2011 tetanus toxoid, reduced diphtheria toxoid, and acellular pertussis vaccine, adsorbed Carlos Terrazas Other [facility] NEGATED: Highlighted row has not occurred! influenza, seasonal, injectable Patient Objection Jeff Jon Other [facility] Payers Date Payer Category Payer Self-pay [id number] 2020 Private Health Insurance [employer] A ETNA CHOICE POS II [id number] 2020-Present [phone] [address] [place] [address] POS [id number]. [id number] 2020 Private Health Insurance [id number] .[id number]. [id number] 2018 Unknown [id number] 1965 Unknown [id number] 2.16.840.1.772517.3.579.2. 182 1967 Unknown [id number] 2.16.840.1.720922.3.579.2. 593 1967 Unknown [id number] 2.16.840.1.642919.3.579.2. 593 1967 Unknown [id number] 2.16.840.1.093889.3.579.2. 593 1967 Unknown [id number] 2.16.840.1.387263.3.579.2. 593 1967 Unknown [id number] 2.16.840.1.947061.3.579.2. 593 1967 Unknown [id number] 2.16.840.1.052623.3.579.2. 593 1967 Unknown [id number] 2.16.840.1.768585.3.579.2. 593 1967 Unknown [id number] 2.16.840.1.664823.3.579.2. 593 1967 Unknown [id number] 2.16.840.1.542063.3.579.2. 593 1967 Unknown [id number] 2.16.840.1.326865.3.579.2. 356 1967 Unknown [id number] 2.16.840.1.302780.3.579.2. 356 1967 Unknown [id number] 2.16.840.1.120645.3.579.2. 356 1967 Unknown [id number] 2.16840.1.338933.3.579.2. 727 1967 Unknown [id number] 2.16.840.1.254718.3.579.2. 1259 1967 Unknown [id number] 2.16.840.1.771950.3.579.2. 1258 1967 Unknown [id number] 2.16.840.1.611145.3.579.2. 1259 1967 Unknown [id number] 2.16840.1.970101.3.579.2. 1259 1967 Unknown [id number] 2.16.840.1.281171.3.579.2. 1259 1967 Unknown [id number] 2.16.840.1.809207.3.579.2. 125 1967 Unknown [id number] 2.16.840.1.846943.3.579.2. 1259 1967 Unknown [id number] 2.16.840.1.334417.3.579.2. 1259 1967 Unknown [id number] 2.16.840.1.701889.3.579.2. 1259 1967 Unknown [id number] 2.16.840.1.799271.3.579.2. 196 1967 Unknown [id number] 2.16.840.1.191864.3.579.2. 196 1967 Unknown [id number] 2.16.840.1.954425.3.579.2. 196 1967 Unknown [id number] 2.16.840.1.496644.3.579.2. 196 1959 Private Health Insurance [id number] 2.16.840.1.197099.19 Unknown [employer] Private Health Insurance [id number] Unknown [id number] 2.16.840.1.708139.3.579.2. 531 Unknown [id number] 2.16.840.1.092305.3.579.2. 531 Unknown [id number] 2.16.840.1.196036.3.579.2. 531 Unknown [id number] 2.16.840.1.544718.3.579.2. 531 Social History Date Type Detail Facility Start: 09-20-2015 End: 08-01-2024 Tobacco smoking status NHIS Never smoked tobacco [facility] Start: 09-20-2015 Tobacco use and exposure Smokeless tobacco non-user [facility] Start: 06-16-2021 End: 10-07-2021 Alcohol intake Not Asked [facility] Start: 1965 Sex Assigned At Female [facility] Start: 09-23-2021 End: 10-07-2021 Exposure to SARS-CoV-2 (event) Not sure [facility] Start: 10-13-2021 Alcohol intake Ex-drinker (finding) [facility] Start: 10-13-2021 History SDOH Alcohol Comment rarely [facility] Sex Assigned At [facility] Start: 06-03-2024 End: 10-24-2024 Sex Female (finding) [facility] Functional Status Date Assessment Result Facility 05-10-2023 Functional Status N/A [facility] Clinical Notes 12-16-2011 to 01-05-2025 Note Date & Type Note Facility 01-05-2025 Note [facility] Subjective Canelo Pathak is a 59 y.o. year old female patient being for a 4 month follow up. Patient had recent Echo, labs and stress test.Patient states she wore a holter monitor for 3 days after she left the hospital, per patient she has not been told the results. Patient states she is not feeling very well, patient states its all the same stuff, nausea, dizziness, palpitation, fatigue, chest pain, [place], leg swelling, lung issues, headaches, anxious/nervous. Patient Active Problem List Diagnosis Abnormal taste in mouth Acid reflux Allergic rhinitis due to animal hair and dander Anxiety Asthma Binge eating disorder BMI 50.0-59.9, adult ([facility]) CFS (chronic fatigue syndrome) Cholesteatoma of attic of ear, right Diabetes ([facility]/HCC) Elevated blood pressure reading Fibromyalgia Gastroesophageal reflux disease with esophagitis Heraclio's disease Hepatitis Hyperlipidemia Hypertension Hypothyroidism Metabolic syndrome Asymmetric SNHL (sensorineural hearing loss) Osteoarthritis 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 Palpitation Polyarthralgia Pulsatile tinnitus of right ear Right-sided tinnitus Seasonal allergies Type 2 diabetes mellitus with hyperglycemia, without long-term current use of insulin ([facility]) UTI (urinary tract infection) Vitamin D deficiency Family History Problem Relation Name Age of Onset Pulmonary embolism Mother Kidney disease Father Heart attack Father Social History Tobacco Use Smoking status: Never Smokeless tobacco: Never Substance Use Topics Alcohol use: Yes Comment: occasional Drug use: Never HPI Initial visit 08/25/2024: Canelo is seen as a new patient. she is a 58-year-old woman with prior medical history of with prior medical history of hypertension, asthma, diabetes and GERD who was admitted to the [facility] on 08/05/2024 with chest pressure and palpitations. At the time of admission her chest pain had resolved. She underwent a CT scan that ruled out pulmonary embolism. ECG showed sinus rhythm without ischemic changes. Troponins x 4 were negative. She had wheezing while in the hospital and was treated with a course of Solu-Medrol and azithromycin. She was discharged with a 3 day holter monitor. Currently she reports that she continues to have shortness of breath with exertion NYHA class II-III symptoms. He also has recurrent palpitations. She says that the palpitations happen anytime of the day or night. In addition she has symptoms of chest pain with exertion. No significant leg edema. she has mild occasional dizziness but no lightheadedness. Her blood pressure is significantly elevated today. Follow-up visit 01/05/2025: At last visit I investigated her symptoms of shortness of breath, chest pain and palpitations with an echocardiogram and stress test. I started her on Cardizem to 40 mg once daily to avoid using beta-blockers given her asthma. In addition given diabetes and elevated ASCVD risk I started her on atorvastatin 20 mg daily. Today she tells me that her PCP stopped her atorvastatin because her LDL follow-up came back better than before. In addition he also stopped Cardizem because she said she did not feel so well on it. In addition she has not been taking aspirin because she is taking meloxicam and her pharmacist told her that they should not be taken together. She reports today that she continues to have symptoms of chest pain this is described as pain in the center of the chest radiating to the left arm. It happens on and off. It is described as heaviness. She has shortness of breath with exertion NYHA class II-III symptoms. She continues to have occasional palpitations. Her stress test showed ischemia in the anterior territory. Her echocardiogram was within normal limits except it could not assess the right-sided pressures due to lack of measurable tricuspid regurgitation. I reviewed the results of the monitor from July 2024 that showed 1 episode of SVT, PACs and PVCs with a low burden as well as sinus rhythm. Review of Systems Constitutional: Positive for malaise/fatigue. Cardiovascular: Positive for chest pain (after palpitation feels chest heaviness), dyspnea on exertion, leg swelling and palpitations. Respiratory: Positive for sleep disturbances due to breathing (wakes up gasping). Musculoskeletal: Positive for falls and joint pain. Gastrointestinal: Positive for nausea. Neurological: Positive for dizziness and headaches (chronic headaches). Psychiatric/Behavioral: The patient is nervous/anxious. Objective Visit Vitals BP (!) 155/96 (BP Location: Left wrist, Patient Position: Sitting) Pulse 85 Ht 1.651 m (5' 5 ) Wt 127 kg (279 lb) SpO2 99% BMI 46.43 kg/m??? Smoking Status Never BSA 2.41 m??? Physical Exam Constitutional: Appearance: She is well-developed. She is obese. She is not ill-appearing. (more content not included)... [facility] 11-27-2024 Evaluation note Authored November 27, 2024 12:3 4pm The above note written by __ _Gail Saul____ acting as human recorder, note dictated by Dr. Jones .I performed the above HPI, ROS, and Examination. I formulated and dictated the treatment plan and was present for entire encounter. Jeff Jon D.O. Author Jeff [facility] Authored October 24, 2024 10:35 am The above note written by __ _Gail Saul____ acting as human recorder, note dictated by Dr. Jones .I performed the above HPI, ROS, and Examination. I formulated and dictated the treatment plan and was present for entire encounter. Jeff Jon D.O. [facility] Work Phone: 1(671) 110-645004-14-2025 Evaluation note* Author Jeff [facility] Authored September 01, 2024 3:4 5pm The above note written by __ _Gail Saul____ acting as human recorder, note dictated by Dr. Jones .I performed the above HPI, ROS, and Examination. I formulated and dictated the treatment plan and was present for entire encounter. Jeff Jon D.O. [facility] Work Phone: 1(642) 127-509804-14-2025 Evaluation note* Author Jeff [facility] Authored September 01, 2024 3:4 5pm The above note written by __ _Gail Saul____ acting as human recorder, note dictated by Dr. Jones .I performed the above HPI, ROS, and Examination. I formulated and dictated the treatment plan and was present for entire encounter. Jeff Jon D.O. Author Jeff [facility] Authored October 24, 2024 10:35 am The above note written by __ _Gail Saul____ acting as human recorder, note dictated by Dr. Jones .I performed the above HPI, ROS, and Examination. I formulated and dictated the treatment plan and was present for entire encounter. Jeff Jon D.O. [facility] Work Phone: 1(336) 478-246404-07-2025 [facility] Subjective Canelo Pathak is a 58 y.o. year old female patient being seen to establish care. Patient complains of chest pain and palpitations. Patient states she was in In patient 2 weeks ago at [facility] due to the palpitation. Patient she states she has had no change in how she feels. Still feeling palpitations, fatigued, SOB. Patient Active Problem List Diagnosis Abnormal taste in mouth Acid reflux Allergic rhinitis due to animal hair and dander Anxiety Asthma Binge eating disorder BMI 50.0-59.9, adult (CMS/HCC) CFS (chronic fatigue syndrome) Cholesteatoma of attic of ear, right Diabetes (CMS/HCC) Elevated blood pressure reading Fibromyalgia Gastroesophageal reflux disease with esophagitis Heraclio's disease Hepatitis Hyperlipidemia Hypertension Hypothyroidism Metabolic syndrome Asymmetric SNHL (sensorineural hearing loss) Osteoarthritis Other halfway (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 Palpitation Polyarthralgia Pulsatile tinnitus of right ear Right-sided tinnitus Seasonal allergies Type 2 diabetes mellitus with hyperglycemia, without long-term current use of insulin (CMS/HCC) UTI (urinary tract infection) Vitamin D deficiency Family History Problem Relation Name Age of Onset Pulmonary embolism Mother Kidney disease Father Heart attack Father Social History Tobacco Use Smoking status: Never Smokeless tobacco: Never Substance Use Topics Alcohol use: Yes Comment: occasional HPI Canelo is seen as a new patient. she is a 58-year-old woman with prior medical history of with prior medical history of hypertension, asthma, diabetes and GERD who was admitted to the [facility] on 08/05/2024 with chest pressure and palpitations. At the time of admission her chest pain had resolved. She underwent a CT scan that ruled out pulmonary embolism. ECG showed sinus rhythm without ischemic changes. Troponins x 4 were negative. She had wheezing while in the hospital and was treated with a course of Solu-Medrol and azithromycin. She was discharged with a 3 day holter monitor. Currently she reports that she continues to have shortness of breath with exertion NYHA class II-III symptoms. He also has recurrent palpitations. She says that the palpitations happen anytime of the day or night. In addition she has symptoms of chest pain with exertion. No significant leg edema. she has mild occasional dizziness but no lightheadedness. Her blood pressure is significantly elevated today. Review of Systems Constitutional: Positive for malaise/fatigue. Cardiovascular: Positive for chest pain (after palpitation feels chest heaviness), dyspnea on exertion, leg swelling and palpitations. Respiratory: Positive for sleep disturbances due to breathing (wakes up gasping). Musculoskeletal: Positive for falls and joint pain. Gastrointestinal: Positive for nausea. Neurological: Positive for dizziness and headaches (chronic headaches). Psychiatric/Behavioral: The patient is nervous/anxious. Objective Visit Vitals BP (!) 150/93 (BP Location: Right arm, Patient Position: Sitting) Pulse 98 Ht 1.651 m (5' 5 ) Wt 128 kg (283 lb) SpO2 96% BMI 47.09 kg/m??? Smoking Status Never BSA 2.42 m??? Physical Exam Constitutional: Appearance: She is well-developed. She is obese. She is not ill-appearing. HENT: Head: Normocephalic and atraumatic. Nose: Nose normal. Eyes: General: No scleral icterus. Pupils: Pupils are equal, round, and reactive to light. Neck: Thyroid: No thyromegaly. Vascular: No JVD. Cardiovascular: Rate and Rhythm: Normal rate and regular rhythm. Pulses: Radial pulses are 2+ on the right side and 2+ on the left side. Heart sounds: Normal heart sounds. No murmur heard. No friction rub. No gallop. Pulmonary: Effort: Pulmonary effort is normal. No respiratory distress. Breath sounds: Normal breath sounds. No wheezing or rales. Chest: Chest wall: No tenderness. Abdominal: General: Bowel sounds are normal. There is no distension. Palpations: Abdomen is soft. Tenderness: There is no abdominal tenderness. Musculoskeletal: General: No swelling. Cervical back: Neck supple. Skin: General: Skin is warm and dry. Neurological: General: No focal deficit present. Mental Status: She is alert and oriented to person, place, and time. Psychiatric: Mood and Affect: Mood normal. Behavior: Behavior is cooperative. Judgment: Judgment normal. Allergies Allergies Allergen Reactions Cefuroxime Itching nerve difficulty Clarithromycin Itching and Unknown nerve difficulty Fluconazole Itching Gatifloxacin Itching Other Reaction(s): Unknown nerve difficulty Levofloxacin Itching and Unknown nerve difficulty Lorazepam Unknown Medications Current Outpatient Medications: albuterol 90 mcg/actuation inhaler, Inhale 1 puff every 4 (four) hours if needed., Disp: , Rfl: cet (more content not included)...[facility]03-12-2025 [facility] [place] [address] [place] [address] CT Scan Report Signed Patient: Canelo Pathak MR#: [id number] : 1965 Acct:[id number] Age/Sex: 58 / F ADM Date: 5 Loc: CT Room: Type: [facility] Attending Dr: Carol Alegria DO Copies to: Carol Alegria DO~ Ordering Provider: Carol Alegria DO Date of Service: 07/30/24 CT/CT abdomen pelvis w con: R10.9 - Unspecified abdominal pain CT ABDOMEN AND PELVIS WITH INTRAVENOUS CONTRAST: CLINICAL HISTORY: Abdominal pain, diarrhea COMPARISON: None TECHNIQUE: Spiral images were obtained through the abdomen and pelvis followingthe administration of intravenous contrast. This CT exam was performed using one or more following dose reduction techniques: Automated exposure control, adjustment of the mA and/or kV according to patient size, or use of iterative reconstruction technique. FINDINGS: Lung Bases: [Minimal hypoventilatory change.] Organs:Gallbladder absent. Otherwise the liver, spleen, adrenals, kidneys, pancreas unremarkable.[ GI: Mild retained stool within colon. No bowel obstruction. Mild distal colonic diverticulosis.[Mildly redundant gas-filled loop of sigmoid colon.. No CT findings acute appendicitis. Pelvis:[Uterus absent. No adnexal mass.] Bladder unremarkable. Peritoneum/Retroperitoneum:Mild to moderate aortic and mesenteric vascular disease. No free air or free fluid.[ Abd wall/Bones:Degenerative changes of the lower lumbar facets.[ CT/CT abdomen pelvis w con IMPRESSION: Negative acute inflammatory or bowel obstruction Impression dictated by: Cameron Worthy M.D.07/30/2024 1:18 PM Dictation Location: [place] [address] Transcribed By: FLORINA 07/30/24 131 Dictated By: Cameron Worthy MD 07/30/241313 Signed By: 07/30/24 1318 [facility] Work Phone: 1(339) 926-687002-06-2025 Chief complaint+Reason for visit Narrative * Chief Complaint Admit Date Referral Order June 26, 2024 1 0:31am stomach pain, diarrhea July 16 10:24am R14.2 R11.0 R10.9 R19.7 July 30, 2024 11:08am hosp f/u palpitations September 01, 2024 2 :39pm follow up after a recent PCP visit September 08, 2024 9:58am Reason for Visit Admit Date Abdominal pain July 16, 2024 10:24am Belching July 16, 2024 10:24am Diarrhea July 16, 2024 10:24am GERD (gastroesophageal reflux disease) F ebruary 2024 10:24am Nausea July 16, 2024 10:24am Abnormal CT scan, chest September 01, 2024 2:39pm Hyperlipidemia September 01, 2024 2:3 9pm Hypertension September 01, 2024 2:3 9pm Hypothyroidism September 01, 2024 2:3 9pm Palpitation September 01, 2024 2:3 9pm Wheezing September 01, 2024 2:3 9pm Asthma September 08, 2024 9:5 8am GERD (gastroesophageal reflux disease) A pril 2024 9:58am Seasonal allergies September 08, 2024 9:[address] [facility] Work Phone: 1(452) 792-356201-24-2025 Evaluation note* Author Jeff Jon [facility] Authored June 13, 2024 2 :07pm The above note written by __ _Gail Saul____ acting as human recorder, note dictated by Dr. Jones .I performed the above HPI, ROS, and Examination. I formulated and dictated the treatment plan and was present for entire encounter. Jeff Jon D.O. [facility] Work Phone: 1(609) 675-574401-24-2025 Evaluation note* Author Jeff Jon [facility] Authored June 13, 2024 1 :07pm The above note written by __ _Gail Saul____ acting as human recorder, note dictated by Dr. Jones .I performed the above HPI, ROS, and Examination. I formulated and dictated the treatment plan and was present for entire encounter. Jeff Jon D.O. [facility] Work Phone: 1(277) 407-538511-22-2024 Evaluation note* [facility] Authored April 11, 2024 4:16pm I performed the above HPI, R OS, and Examination. I formulated and dictated the treatment plan and was present for entire encounter. Jeff Jon D.O. [facility] Work Phone: 1(268) 384-999911-22-2024 Evaluation note* Author Jeff [facility] Authored April 11, 2024 4:16pm I performed the above HPI, R OS, and Examination. I formulated and dictated the treatment plan and was present for entire encounter. Jeff Jon D.O. Author Jeff [facility] Authored June 13, 2024 1 :07pm The above note written by __ _Gail Saul____ acting as human recorder, note dictated by Dr. Jones .I performed the above HPI, ROS, and Examination. I formulated and dictated the treatment plan and was present for entire encounter. Jeff Jon D.O. [facility] Work Phone: 1(909) 123-937106-10-2024 Evaluation note* Author Jeff [facility] Authored October 29, 2023 3:26 pm The above note written by __ _Gail Saul____ acting as human recorder, note dictated by Dr. Jones .I performed the above HPI, ROS, and Examination. I formulated and dictated the treatment plan and was present for entire encounter. Jfef Jon D.O. Author Jeff [facility] Authored September 26, 2023 3:16pm The above note written by __ _Gail Saul____ acting as human recorder, note dictated by Dr. Jones .I performed the above HPI, ROS, and Examination. I formulated and dictated the treatment plan and was present for entire encounter. Jeff Jon D.O. [facility] Work Phone: 1(776) 448-416306-10-2024 Evaluation note* Author Jeff Jon [facility] Authored October 29, 2023 3:26 pm The above note written by __ _Gail Saul____ acting as human recorder, note dictated by Dr. Jones .I performed the above HPI, ROS, and Examination. I formulated and dictated the treatment plan and was present for entire encounter. Jeff Jon D.O. [facility] Work Phone: 1(115) 477-638005-08-2024 Hospital Discharge instructionsAmbulatory Orders* Referral to Pain Management Time Frame: 09/26/23, Location: [facility] Work Phone: 1([phone]) 772-241104-09-2024 Evaluation note* Author Jeff Jon [facility] Authored August 28, 2023 11:5 9am The above note written by __ _Gail Saul____ acting as human recorder, note dictated by Dr. Jones .I performed the above HPI, ROS, and Examination. I formulated and dictated the treatment plan and was present for entire encounter. Jeff Jon D.O. [facility] Work Phone: 1(172) 423-752504-09-2024 Evaluation note* Author Jeff Jon [facility] Authored August 28, 2023 11:5 9am The above note written by __ _Gail Saul____ acting as human recorder, note dictated by Dr. Jones .I performed the above HPI, ROS, and Examination. I formulated and dictated the treatment plan and was present for entire encounter. Jeff Jon D.O. Author Jeff Jon [facility] Authored September 26, 2023 3:16pm The above note written by __ _Gail Saul____ acting as human recorder, note dictated by Dr. Jones .I performed the above HPI, ROS, and Examination. I formulated and dictated the treatment plan and was present for entire encounter. Jeff Jon D.O. [facility] Work Phone: 1([phone]) 796-199002-09-2024 Evaluation note* Encounter Date Diagnosis Assessment Notes Treatment Notes Treatment Clinical Notes Jun, Elevated blood pressure (ICD-10 - R03.0) [facility] Other 12-21-2023 Evaluation + Plan noteExtracted from: [...] with any questions or concerns that arise. [facility]11-15-2023 Evaluation note* Encounter Date Diagnosis Assessment Notes Treatment Notes Treatment Clinical Notes Mar, Other chronic pain (ICD-10 - G89.29) Mar, GERD (gastroesophageal reflux disease) (ICD-10 - K21.9) Mar, Asthma (ICD-10 - J45.909) [facility] Other 10-30-2023 Evaluation note* Encounter Date Diagnosis Assessment Notes Treatment Notes Treatment Clinical Notes Feb, Asthma (ICD-10 - J45.909) Feb, Seasonal allergies (ICD-10 - J30.2) Feb, GERD (gastroesophageal reflux disease) (ICD-10 - K21.9) [facility] Other 10-05-2023 Evaluation note* Encounter Date Diagnosis [...] take the medication. She is going to [place] next week, so she will not make [...] (ICD-10 - K21.9) Continue to follow with calculating machine operator and take above medication as directed. Feb, Other halfway (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 (ICD-10 - Z79.899) Feb, [...] 27.0. She did try to contact her associate sales manager who prescribed the once weekly dose [...] variant or something in the balance center. [facility] Other 06-06-2023 Evaluation note* Encounter Date Diagnosis [...] understanding and is agreeable to treatment plan. [facility] Other 05-30-2023 Evaluation note* Encounter Date Diagnosis Assessment Notes Treatment Notes Treatment Clinical Notes September, Asthma (ICD-10 - J45.909) September, Seasonal allergies (ICD-10 - J30.2) September, GERD (gastroesophageal reflux disease) (ICD-10 - K21.9) [facility] Other 04-26-2023 Evaluation note* Encounter Date Diagnosis Assessment Notes Treatment Notes Treatment Clinical Notes Aug, Asthma (ICD-10 - J45.909) Aug, Seasonal allergies (ICD-10 - J30.2) Aug, GERD (gastroesophageal reflux disease) (ICD-10 - K21.9) [facility] Other 03-24-2023 Evaluation note* Encounter Date Diagnosis [...] water inside ear after shower may use bow rehairer on lowest cool setting to blow dry. Follow up with PCP or UC if no improvement in the next 2-3 days. Immediate eval for severe ear pain, severe headache, neck pain/stiffness, pain, erythema, or swelling behind the ear, fever, N/V, hearing loss, fever, or any other new or concerning symptoms. Patient verbalizes understanding and is agreeable to treatment plan. [facility] [employer] Other 03-20-2023 Evaluation note* Encounter Date Diagnosis [...] Other 10:38 AM - 10:4 6 AM [facility] Other 02-22-2023 Evaluation note* Encounter Date Diagnosis Assessment Notes Treatment Notes Treatment Clinical Notes Jun, Elevated blood pressure (ICD-10 - R03.0) [facility] Other 02-22-2023 Evaluation note* Encounter Date Diagnosis [...] above medication daily as directed. Jun, Other halfway (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 (ICD-10 - Z79.899) Jun, [...] her to discuss this pain with her REFINISHER when seen in July) and her gastro doctor when she has the colonoscopy. She voices that she had endometriosis in the past and was told it could return, this does feel similar to that, so she will discuss it with her associate sales manager. Jun, Elevated blood pressure (ICD-10 - [...] the intestine. She is following with a TOWER FOREMAN (Cass Cheney) in [place], [place]. She has to do a stool [...] do this. She has not seen an REFINISHER in a year and a half but [...] I did recommend she buy Tar[place] at [facility] and apply this to her hands at night. [facility] Other 01-25-2023 Evaluation note* Encounter Date Diagnosis Assessment Notes Treatment Notes Treatment Clinical Notes May, Asthma (ICD-10 - J45.909) [facility] Other 11-22-2022 Evaluation note* Encounter Date Diagnosis Assessment Notes Treatment Notes Treatment Clinical Notes Mar, Hypothyroidism, unspecified (ICD-10 - E03.9) She voices that she is not going to return to see the client care representative for evaluation. She voices that her results [...] once weekly that was ordered by her REFINISHER and she would like this office to take over filling this prescription. I will order a Vitamin D level to be done in three months. Mar, Other halfway (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 (ICD-10 - Z79.899) Mar, [...] She agrees and a referral is provided. [facility] Other 11-01-2022 Evaluation note* Encounter Date Diagnosis Assessment Notes Treatment Notes Treatment Clinical Notes Mar, Hypothyroidism, unspecified (ICD-10 - E03.9) [facility] Other 11-01-2022 Evaluation note* Encounter Date Diagnosis Assessment Notes Treatment Notes Treatment Clinical Notes Mar, Asthma (ICD-10 - J45.909) Mar, GERD (gastroesophageal reflux disease) (ICD-10 - K21.9) [facility] Other 07-19-2022 Evaluation note* Encounter Date Diagnosis Assessment Notes Treatment Notes Treatment Clinical Notes Nov, Asthma (ICD-10 - J45.909) Nov, Seasonal allergies (ICD-10 - J30.2) [facility] Other 06-02-2022 Evaluation note* Encounter Date Diagnosis [...] Again, she voices that she saw the client care representative recently and was on 2 of the [...] the Fluticasone nasal spray daily. Oct, Other halfway (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 (ICD-10 - Z79.899) Oct, [...] can return to discuss this if needed. [facility] Other 05-26-2022 NoteHNO ID: [id number] Author: Anila Jimenez APRN.PERSONAL CARE WORKER Service: ? Author Type: Nurse Practitioner Type: Progress Notes Filed: 10/13/2021 4:47 PM Note Text: ENDOCRINOLOGY, DIABETES AND METABOLISM DIABETES FOLLOW UP VISIT This Team Access Model visit is a phone encounter and aCnelo Pathak has consented to this virtual encounter. This is a virtual visit using MyChart video visit. It is a required patient-provider [...] daily. - mometasone furoate(NASONEX 50 MCG/ACTUATION SPRAY) Vail twice in each nostril once daily. - cetirizine hcl(ZYRTEC 10 MG TAB) Take one(1) tablet daily. - fluticasone/salmeterol(ADVAIR DISKUS 250 MCG-50 MCG/DOSE FOR INHALATION) Take one(1) inhalation twice daily; rinse and gargle mouth with water after each use. No current facility-administered medications for this visit. Immunization History Administered Date(s) Administered COVID-19 vaccine, age 12+ yr ([employer] - PURPLE TOP) 09/02/2020 09/23/2020 Social History [...] >=60 mL/min/1.73m? 103 Corrected (more content not included)...[facility]05-26-2022 History of Present illness Narrative* Anila Jimenez APRN.PERSONAL CARE WORKER - 10/13/2021 4:15 PM EDT ENDOCRINOLOGY, DIABETES & METABOLISM DIABETES FOLLOW UP VISIT This Team Access Model visit is a phone encounter and Canelo Pathak has consented to this virtual encounter. This is a virtual visit using Amadesa video visit. It is a required patient-provider [...] capsule daily. mometasone furoate(NASONEX 50 MCG/ACTUATION SPRAY) Vail twice in each nostril once daily. cetirizine hcl(ZYRTEC 10 MG TAB) Take one(1) tablet daily. fluticasone/salmeterol(ADVAIR DISKUS 250 MCG-50 MCG/DOSE FOR INHALATION) Take one(1) inhalation twice daily; rinse and gargle mouth with water after each use. No current facility-administered medications for this visit. Immunization History Administered Date(s) Administered COVID-19 vaccine, age 12+ yr ([employer] - [facility]) 09/02/2020 09/23/2020 Social History Tobacco Use Smoking [...] which included preparing to see the patient, [id number] patient care, completing clinical documentation, obtaining and/or reviewing separately obtained history, performing a medically appropriate examination, counseling and educating the pat ient/family/caregiver and ordering medications, tests, or procedures. Anila Jimenez APRN.[facility] [place] [facility] NoteHNO ID: [id number] Author: Leena Seymour MD Service: ? Author [...] mcg (5,000 unit) cap - Vitamin D [place] ([employer]) Take 1 capsule by mouth daily with food. - montelukast (SINGULAIR) 10 mg tablet Take 10 mg by mouth daily at bedtime. - MULTIVIT-MINERALS/FERROUS GLUC (CENTRAM-CARE ORAL) Take by mouth twice daily. - esomeprazole mag trihydrate(NEXIUM 40 MG CAP) Take one(1) capsule daily. - mometasone furoate(NASONEX 50 MCG/ACTUATION SPRAY) Vail twice in each nostril once daily. - [...] effexor. Will check routine labs. Leena Seymour [facility]05-20-2022 History of Present illness Narrative* Leena [...] 125 mcg (5,000 unit) cap Vitamin D [place] ([employer]) Take 1 capsule by mouth daily with food. montelukast (SINGULAIR) 10 mg tablet Take 10 mg by mouth daily at bedtime. MULTIVIT-MINERALS/FERROUS GLUC (CENTRAM-CARE ORAL) Take by mouth twice daily. esomeprazole mag trihydrate(NEXIUM 40 MG CAP) Take one(1) capsule daily. mometasone furoate(NASONEX 50 MCG/ACTUATION SPRAY) Vail twice in each nostril once daily. cetirizine [...] labs. Leena Seymour MD [facility]05-16-[facility]22 Miscellaneous Notes* Telephone Encounter - Renea Mcfarland [employer] - 10/03/2021 3:02 PM EDT Patient called in asking for routine lab orders to be placed. Patient stated she will schedule her appointment soon. Done. Asad Ansari MD documented [facility]Pe[facility]03-[facility]-2022 NoteHNO ID: [id number] Author: Asad Ansari MD Service: ? Author Type: Physician Type: Progress Notes Filed: 07/22/2021 10:43 AM Note Text: VIRTUAL VISIT PROGRESS NOTE This is a virtual visit using [employer] video platform. It required patient-provider interaction for [...] mcg (5,000 unit) cap - Vitamin D [place] ([employer]) Take 1 capsule by mouth daily with food. - montelukast (SINGULAIR) 10 mg tablet Take 10 mg by mouth daily at bedtime. - MULTIVIT-MINERALS/FERROUS GLUC (CENTRAM-CARE ORAL) Take by mouth twice daily. - esomeprazole mag trihydrate(NEXIUM 40 MG CAP) Take one(1) capsule daily. - mometasone furoate(NASONEX 50 MCG/ACTUATION SPRAY) Vail twice in each nostril once daily. - [...] Date(s) Administered COVID-19 vaccine, age 12+ yr ([employer] - PURPLE TOP) 09/23/2020 Labs: HbA1c. TSH. [...] 2 months - virt (more content not included)...[facility]02-14-2022 Evaluation note* Encounter Date Diagnosis Assessment Notes Treatment Notes Treatment Clinical Notes Jun, Lumbar pain (ICD-10 - M54.50) Jun, Leg pain (ICD-10 - M79.606) bilateral Jun, Hyperlipidemia (ICD-10 - E78.5) [facility] Other 02-02-2022 Miscellaneous Notes* Telephone Encounter - Neema Adams - 06/22/2021 9:09 AM EST Patient called in requesting the results of her labs that she had completed on 06/16/2021 Canelo can be reached at [phone] () or can be reached through [employer]. documented in [facility] encounterPe[facility]01-27-2022 NoteHNO ID: [id number] Author: Asad Ansari MD Service: ? Author Type: Physician Type: Progress Notes Filed: 06/16/2021 1:56 PM Note Text: Last Visit: This is the first visit. Ms. Pathak is here for follow up regarding her DM Type 2 and hypothyroidism. Current Immunizations: Most Recent Immunizations Administered Date(s) Administered COVID-19 vaccine, age 12+ yr ([employer] - PURPLE TOP) 09/23/2020 PHYSICAL EXAMINATION: BP [...] mouth daily before breakfast. - Vitamin D [place] ([employer]) Take 1 capsule by mouth daily with food. - montelukast (SINGULAIR) 10 mg tablet Take 10 mg by mouth daily at bedtime. - MULTIVIT-MINERALS/FERROUS GLUC (CENTRAM-CARE ORAL) Take by mouth twice daily. - esomeprazole mag trihydrate(NEXIUM 40 MG CAP) Take one(1) capsule daily. - mometasone furoate(NASONEX 50 MCG/ACTUATION SPRAY) Vail twice in each nostril once daily. - [...] Hair?: Yes Cold Intolerance: Yes Heat Intolerance?: [facility]* Encounter Date Diagnosis Assessment Notes Treatment Notes Treatment Clinical Notes Apr, Diabetes (ICD-10 - E11.9) [facility] Other 10-27-2021 Evaluation note* Encounter Date Diagnosis Assessment Notes Treatment Notes Treatment Clinical Notes Feb, Hypothyroidism, unspecified (ICD-10 - E03.9) Feb, Polyarthralgia (ICD-10 - M25.50) [facility] Other 10-26-2021 Evaluation note* Encounter Date Diagnosis [...] to check her thyroid levels. 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 [facility] Other 10-07-2021 Evaluation note* Encounter Date Diagnosis Assessment Notes Treatment Notes Treatment Clinical Notes Feb, Bronchitis (ICD-10 - J40) [facility] Other 10-04-2021 Evaluation note* Encounter Date Diagnosis Assessment Notes Treatment Notes Treatment Clinical Notes Feb, Asthma (ICD-10 - J45.909) Feb, GERD (gastroesophageal reflux disease) (ICD-10 - K21.9) Feb, Seasonal allergies (ICD-10 - J30.2) [facility] Other 07-28-2012 History general Narrative - Reported* Type Description Date Medical History asthma Medical History 12/16/11 Right hand x-ray Medical History 12/16/11 Blood work Lipid, CMP, CBC, T4, TSH, HGA1C (6.3) Medical History 03/11/12-stress test at [facility] Medical History Hypothyroidism Medical History 2016 mammogram Medical History 12/21/15 EKG Medical History 12/29/15 Stress Test [facility] Surgical History tonsillectomy and adenoidectomy 1977 Surgical History cholecystectomy 08/2008 Surgical History gall bladder 08/2008 Surgical History tubes in ears Surgical History laproscopic fibroid removal Surgical History hysterectomy-total Surgical History mammogram [facility] - Dr Alvarez 07/17/17 Surgical History ERCP 09/17/17 Hospitalization History gall bladder 08/2008 Hospitalization History tonsillectomy Hospitalization History tubes in ears Hospitalization History heart(over night opserva tion) 08/2007 Hospitalization History pneumonia 1999 Hospitalization History abnormal liver function test 2017 [facility] Other 07-28-2012 History general Narrative - Reported* Type Description Date Medical History asthma Medical History 12/16/11 Right hand x-ray Medical History 03/11/12-stress test at [facility] Medical History Hypothyroidism Medical History 2015 mammogram Medical History 12/21/15 EKG Medical History 12/29/15 Stress Test [facility] Surgical History tonsillectomy and adenoidectomy 1977 Surgical History cholecystectomy 08/2008 Surgical History gall bladder 08/2008 Surgical History tubes in ears Surgical History laproscopic fibroid removal Surgical History hysterectomy-total Surgical History mammogram [facility] - Dr Alvarez 07/17/17 Surgical History ERCP 09/17/17 Hospitalization History gall bladder 08/2008 Hospitalization History tonsillectomy Hospitalization History tubes in ears Hospitalization History heart(over night opserva tion) 08/2007 Hospitalization History pneumonia 1999 Hospitalization History abnormal liver function test 2018 [facility] Other 07-28-2012 History general Narrative - Reported* Type Description Date Medical History asthma Medical History 12/16/11 Right hand x-ray Medical History 03/11/12-stress test at [facility] Medical History Hypothyroidism Medical History 2015 mammogram Medical History 12/21/15 EKG Medical History 12/29/15 Stress Test [facility] Medical History spinal stenosis Surgical History tonsillectomy and adenoidectomy 1977 Surgical History cholecystectomy 08/2008 Surgical History gall bladder 08/2008 Surgical History tubes in ears Surgical History laproscopic fibroid removal Surgical History hysterectomy-total Surgical History mammogram [facility] - Dr Alvarez 07/17/17 Surgical History ERCP 09/17/17 Hospitalization History gall bladder 08/2008 Hospitalization History tonsillectomy Hospitalization History tubes in ears Hospitalization History heart(over night opserva tion) 08/2007 Hospitalization History pneumonia 1999 Hospitalization History abnormal liver function test 2018 [facility] Other Evaluation note* Diagnosis Acquired hypothyroidism- Primary Unspecified hypothyroidism Controlled type 2 diabetes mellitus without complication, without long-term current use of insulin (HCC) documented in this encounter [facility] note* Diagnosis Fibromyalgia- Primary Mylagia and myositis, unspecified ALDEN (generalized anxiety disorder) Generalized anxiety disorder documented in this encounter [facility] note* Diagnosis Type 2 diabetes mellitus with hyperglycemia, without long-term current use of insulin (HCC)- Primary Heraclio's disease Chronic lymphocytic thyroiditis documented in this encounter [facility] noteNo InformationNomid [facility] [employer] Other Evaluation [facility]Nomid [facility] [employer] Other Evaluation note* Diagnosis Onset Date Resolution Status Anxiety acute Asthma acute Diabetes acute Elevated blood pressure reading acute Fatigue acute GERD (gastroesophageal reflux disease) acute Hyperlipidemia acute Hypothyroidism acute Other chronic pain acute Other halfway (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 acute Palpitation acute Vitamin D deficiency acute [facility] Work Phone: Evaluation note* Diagnosis Onset Date Resolution Status Chronic pain acute Hip pain acute Lumbar stenosis acute Sacroiliitis acute Chronic pain acute Hip pain acute Lumbar radiculopathy acute Lumbar stenosis acute Sacroiliitis acute Chronic pain acute Lumbar radiculopathy acute Lumbosacral spondylosis acut e Sacroiliitis acute [facility] Work Phone: Evaluation note* Diagnosis Onset Date Resolution Status Chronic pain acute Hip pain acute Lumbar stenosis acute Sacroiliitis acute Chronic pain acute Hip pain acute Lumbar radiculopathy acute Lumbar stenosis acute Sacroiliitis acute Chronic pain acute Lumbar radiculopathy acute Lumbosacral spondylosis acut e Sacroiliitis acute Chronic pain acute Lumbar radiculopathy acute Lumbosacral spondylosis acut e Sacroiliitis acute [facility] Work Phone: Evaluation note* Diagnosis Onset Date Resolution Status Chronic pain acute Lumbar radiculopathy acute Lumbosacral spondylosis acut e Sacroiliitis acute Chronic pain acute Lumbar radiculopathy acute Lumbosacral spondylosis acut e Sacroiliitis acute Asthma acute GERD (gastroesophageal reflux disease) acute Seasonal allergies acute [facility] Work Phone: History general Narrative - ReportedBath [employer] Other Hisfkwu general Narrative - Reported* Type Description Date [...] removal Surgical History hysterectomy-total Surgical History mammogram [facility] - Dr Alvarez 07/17/17 Surgical History ERCP 09/17/17 Hospitalization History gall bladder 08/2008 Hospitalization History tonsillectomy Hospitalization History tubes in ears Hospitalization History heart(over night opserva tion) 08/2007 Hospitalization History pneumonia 1999 Hospitalization History abnormal liver function test 2017 [facility] Other History general Narrative - Reported* Type [...] removal Surgical History hysterectomy-total Surgical History mammogram [facility] - Dr Alvarez 07/17/17 Surgical History ERCP 09/17/17 Hospitalization History gall bladder 08/2008 Hospitalization History tonsillectomy Hospitalization History tubes in ears Hospitalization History heart(over night opserva tion) 08/2007 Hospitalization History pneumonia 1999 Hospitalization History abnormal liver function test 2017 [facility] Other Hospital course Narrative No data available for this section [facility] No data available for this section [facility] Discharge instructionsAmbulatory Orders* Referral to Orthopedics Time Frame: 06/26/24, Location: None [facility] [facility] Work Phone: Progress note No data available for this section Premier HealthReason for referral (narrative)No reason for referral information availableUniversity Hospitals [facility] Work Phone: Reason for visit Narrativereview labs, discuss multiple issues, see treatment plan for further informationNort [employer] Other Reason for visit Narrativereview labs, discuss multiple issues, see treatment [facility] [employer] Other Summary Purpose Family History No Family History Records Found Relationship Condition Age at Onset Recorded Date/T [...] mellitus Unknown grandparent Hypertension Unknown mother Unknown Relationship Condition Age at Onset Recorded Date/T erlin brother Hypertension Unknown father History of stroke Unknown Hypertension Unknown Heart disease Unknown Diabetes mellitus Unknown Unknown Renal failure Unknown grandparent Diabetes mellitus Unknown grandparent Hypertension Unknown mother Unknown Pulmonary embolism Unknown Relationship Condition Age at Onset Recorded Date/T erlin brother Hypertension Unknown father History of stroke Unknown Hypertension Unknown Heart disease Unknown Diabetes mellitus Unknown Unknown Renal failure Unknown grandparent Diabetes mellitus Unknown mother Unknown Pulmonary embolism Unknown Advance Directives No Advanced Directives Records Found Advance Directive Response Recorded Date/ Time Advance Directives No September 14, 018 9:20pm Advance Directive Response Recorded Date/ Time Advance Directives No September 14 018 8:20pm Reason for Referral Specialty Diagnoses / Procedures Referred By Rosa mcelroy Referred To Contact Spine [place] Diagnoses Fibromyalgia Procedures CONSULT TO [facility] ([facility]IN) OFFICE/OUTPATIENT [facility] MDM 60-74 MINUTES Leena Seymour MD [address] [place] [address] Referral ID Status Reason Start Date Expiration Date Visits Requested Visits Authorized [id number] Pending Review PCP Requested Referral 10/07/2021 10/07/2022 1 1 Reason appt pt needs cons ult to discuss weight loss, diabetes Diagnosis 1 Diabetes (E11.9) Referral Organization [facility] [place] Referring Provider First Name Jeff Referring Provider Last Name Dontrell Referring Provider Specialty Family Prac debbi Referred Organization [facility] Referred Provider Carl Valdivia Jr. Referred Address [address],[place], [place],[address] Referred Provider Specialty Internal Med icine Referral Priority Routine General Notes TalbertMaddie zunigah 03/15/2021 01:33:19 PM > [facility] form faxed. pt understands she will be contacted to schedule the appt Reason appt pt needs scre ening colonoscopy Diagnosis 1 Colon cancer screeni ng (Z12.11) Referral Organization [facility] [place] Referring Provider First Name Jeff Referring Provider Last Name Dontrell Referring Provider Specialty Family Prac debbi Referred Organization [facility] Gastroenterolo gy Referred Provider Howard Kunz Referred Address [address],[facility] [address] ,[place], [place],[address] Referred Provider Specialty Gastroentero logy Referral Priority Routine General Notes TalbertMaddie zunigah 04/11/2022 01:25:30 PM > referral sent p2p. pt understands she will be contacted to schedule this appt. Reason appt pt will call to schedule this appt consult for continued ear pain despite antibiotic treatment Diagnosis 1 Right acute otitis m edia (H66.91) Referral Organization [facility] [place] Referring Provider First Name Jeff Referring Provider Last Name Dontrell Referring Provider Specialty [facility] Prac debbi Referred Organization [facility] Referred Provider Jennie Guillermo Referred Address ,[place], [place],[address] Referred Provider Specialty Ear, Nose an d [...] disease) Hyperlipidemia Hypothyroidism Other chronic pain Other halfway (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 Palpitation Vitamin D deficiency Chief Complaint review labs BP/discuss meds/ENT Reason for Visit Anxiety Asthma Diabetes Elevated blood pressure reading Fatigue GERD (gastroesophageal reflux disease) Hyperlipidemia Hypothyroidism Other chronic pain Other halfway (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 Palpitation Vitamin D deficiency Asymmetrical sensorineural hearing loss Chronic pain Elevated blood pressure reading Tinnitus Chief Complaint review labs BP/discuss meds/ENT review thyroid labs Reason for Visit Anxiety Asthma Diabetes Elevated blood pressure reading Fatigue GERD (gastroesophageal reflux disease) Hyperlipidemia Hypothyroidism Other chronic pain 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 Palpitation Vitamin D deficiency [...] 1 1:31am GERD (gastroesophageal reflux disease) N ov2023 11:31am Seasonal allergies March 26, 2024 1 [...] June 13, 2024 1 2:08pm Lumbosacral spondylosis June 13 12:08pm Shoulder pain, left June 13, 2024 1 2:08pm Chief Complaint Admit Date review labs April 11, 2024 11:58am LOW BACK PAIN June 03, 2024 1 1:36am let shoulder pain June 13, 2024 1 2:08pm Referral Order June 26, 2024 1 0:31am Reason for Visit Admit Date Diabetes April 11, 2024 11:58am Hip pain [...] June 13, 2024 1 2:08pm Lumbosacral spondylosis June 13 12:08pm Shoulder pain, left June 13, 2024 1 2:08pm Chief Complaint Admit Date LOW BACK PAIN June 03, 2024 1 1:36am let shoulder pain June 13, 2024 1 2:08pm Referral Order June 26, 2024 1 0:31am stomach pain, diarrhea July 16 10:24am Reason for Visit Admit Date Chronic pain June 03, 2024 1 1:36am Lumbosacral spondylosis June 03 11:36am Sacroiliitis June 03, 2024 1 1:36am Diarrhea June 13, 2024 1 2:08pm Lumbosacral spondylosis June 13 12:08pm Shoulder pain, left June 13, 2024 1 2:08pm Abdominal pain July 16, 2024 10:24am Belching July 16, 2024 10:24am Diarrhea July 16, 2024 10:24am Fatigue July 16, 2024 10:24am GERD (gastroesophageal reflux disease) F ebruary 2024 10:24am Nausea July 16, 2024 10:24am Chief Complaint Admit Date LOW BACK PAIN June 03, 2024 1 1:36am let shoulder pain June 13, 2024 1 2:08pm Referral Order June 26, 2024 1 0:31am stomach pain, diarrhea July 16 10:24am R14.2 R11.0 R10.9 R19.7 July 30, 2024 11:08am Reason for Visit Admit Date Chronic pain June 03, 2024 1 1:36am Lumbosacral spondylosis June 03 11:36am Sacroiliitis June 03, 2024 1 1:36am Diarrhea June 13, 2024 1 2:08pm Lumbosacral spondylosis June 13 12:08pm Shoulder pain, left June 13, 2024 1 2:08pm Abdominal pain July 16, 2024 10:24am Belching July 16, 2024 10:24am Diarrhea July 16, 2024 10:24am GERD (gastroesophageal reflux disease) F [facility] 2024 10:24am Nausea July 16, 2024 10:24am Chief Complaint Admit Date LOW BACK PAIN June 03, 2024 1 1:36am let shoulder pain June 13, 2024 1 2:08pm Referral Order June 26, 2024 1 0:31am stomach pain, diarrhea July 16 10:24am R14.2 R11.0 R10.9 R19.7 July 30, 2024 11:08am hosp f/u palpitations September 01, 2024 2 :39pm Reason for Visit Admit Date Chronic pain June 03, 2024 1 1:36am Lumbosacral spondylosis June 03 11:36am Sacroiliitis June 03, 2024 1 1:36am Diarrhea June 13, 2024 1 2:08pm Lumbosacral spondylosis June 13 12:08pm Shoulder pain, left June 13, 2024 1 2:08pm Abdominal pain July 16, 2024 10:24am Belching July 16, 2024 10:24am Diarrhea July 16, 2024 10:24am GERD (gastroesophageal reflux disease) F [facility] 2024 10:24am Nausea July 16, 2024 10:24am Abnormal CT scan, chest September 01, 2024 2:39pm Hyperlipidemia September 01, 2024 2:3 9pm Hypertension September 01, 2024 2:3 9pm Hypothyroidism September 01, 2024 2:3 9pm Palpitation September 01, 2024 2:3 9pm Wheezing September 01, 2024 2:3 9pm Chief Complaint Admit Date stomach pain, diarrhea July 16 10:24am R14.2 R11.0 R10.9 R19.7 July 30, 2024 11:08am diarrhea/abd pain/nausea/GERD July 11:00am hosp f/u palpitations September 01, 2024 2 :39pm follow up after a recent PCP visit September 08, 2024 9:58am Reason for Visit Admit Date Abdominal pain July 16, 2024 10:24am Belching July 16, 2024 10:24am Diarrhea July 16, 2024 10:24am GERD (gastroesophageal reflux disease) F ebruary 2024 10:24am Nausea July 16, 2024 10:24am Abnormal CT scan, chest September 01, 2024 2:39pm Hyperlipidemia September 01, 2024 2:3 9pm Hypertension September 01, 2024 2:3 9pm Hypothyroidism September 01, 2024 2:3 9pm Palpitation September 01, 2024 2:3 9pm Wheezing September 01, 2024 2:[address] scan, chest September 08, 2024 9:58am Asthma September 08, 2024 9:5 8am GERD (gastroesophageal reflux disease) A pri2024 9:58am Seasonal allergies September 08, 2024 9:5 8am Chief Complaint Admit Date R14.2 R11.0 R10.9 R19.7 July 30, 2024 11:08am diarrhea/abd pain/nausea/GERD July 11:00am hosp f/u palpitations September 01, 2024 2 :39pm follow up after a recent PCP visit September 08, 2024 9:58am telephone/cough/green phlegm October 24, 2 025 10:11am Reason for Visit Admit Date Abnormal CT scan, chest September 01, 2024 2:39pm Hyperlipidemia September 01, 2024 2:3 9pm Hypertension September 01, 2024 2:3 9pm Hypothyroidism September 01, 2024 2:3 9pm Palpitation September 01, 2024 2:3 9pm Wheezing September 01, 2024 2:[address] scan, chest September 08, 2024 9:58am Asthma September 08, 2024 9:5 8am GERD (gastroesophageal reflux disease) A pri2024 9:58am Seasonal allergies September 08, 2024 9:5 8am Acute cough October 24, 2024 10:11 am Acute sinusitis October 24, 2024 10:11 am Chief Complaint Admit Date hosp f/u palpitations September 01, 2024 2 :39pm follow up after a recent PCP visit September 08, 2024 9:58am telephone/cough/green phlegm October 24, 2 025 10:11am Chief Complaint Admit Date hosp f/u palpitations September 01, 2024 2 :39pm follow up after a recent PCP visit September 08, 2024 9:58am telephone/cough/green phlegm October 24, 025 10:11am review labs November 27, 2024 11:3 5am Reason for Visit Admit Date Abnormal CT scan, chest September 01, 2024 2:39pm Hyperlipidemia September 01, 2024 2:3 9pm Hypertension September 01, 2024 2:3 9pm Hypothyroidism September 01, 2024 2:3 9pm Palpitation September 01, 2024 2:3 9pm Wheezing September 01, 2024 2:[address] scan, chest September 08, 2024 9:58am Asthma September 08, 2024 9:5 8am GERD (gastroesophageal reflux disease) A pril 2024 9:58am Seasonal allergies September 08, 2024 9:5 8am Acute cough October 24, 2024 10:11 am Acute sinusitis October 24, 2024 10:11 am Diabetes November 27, 2024 11:3 5am Hyperlipidemia November 27, 2024 11:3 5am Hypertension November 27, 2024 11:3 5am Hypothyroidism November 27, 2024 11:3 5am Palpitation November 27, 2024 11:3 5am Polyarthralgia November 27, 2024 11:3 5am Vitamin D deficiency November 27, 2024 11: 35am Chief Complaint Admit Date telephone/cough/green phlegm October 24, 025 10:11am review labs November 27, 2024 11:3 [...] Seasonal allergies December 08, 2024 9:32 am Additional Source Comments INFORMATION SOURCE (unrecogn ized section and content) DATE CREATED AUTHOR 10/10/2018 [facility] DATE CREATED AUTHOR AUTHOR'S ORGANIZ ATION 05/13/2022 [facility] DATE CREATED AUTHOR AUTHOR'S ORGANIZ ATION 09/15/2022 [facility] DATE CREATED AUTHOR AUTHOR'S ORGANIZ ATION 12/19/2022 [facility] DATE CREATED AUTHOR AUTHOR'S ORGANIZ ATION 10/14/2023 Schumacher Devan [facility] DATE CREATED AUTHOR AUTHOR'S ORGANIZ ATION 10/24/2023 [facility] DATE CREATED AUTHOR AUTHOR'S ORGANIZ ATION 01/31/2024 [facility] DATE CREATED AUTHOR AUTHOR'S ORGANIZ ATION 11/30/2024 [facility] DATE CREATED AUTHOR AUTHOR'S ORGANIZ ATION 01/06/2025 [facility] Source Comments (unrecognize d section and content) In the event this informatio n is protected by the Federal Confidentiality of Alcohol and Drug Abuse Patient Records regulations: The Federal rules restrict any use of the information to criminally investigate or prosecute any alcohol or drug abuse patient.[facility] the event this information is protected by the Federal Confidentiality of Alcohol and Drug Abuse Patient Records regulations: The Federal rules restrict any use of the information to criminally investigate or prosecute any alcohol or drug abuse patient.[facility] the event this information is protected by the Federal Confidentiality of Alcohol and Drug Abuse Patient Records regulations: The Federal rules restrict any use of the information to criminally investigate or prosecute any alcohol or drug abuse patient.[facility] the event this information is protected by the Federal Confidentiality of Alcohol and Drug Abuse Patient Records regulations: The Federal rules restrict any use of the information to criminally investigate or prosecute any alcohol or drug abuse patient.[facility] Hospital[facility] the event this information is protected by the Federal Confidentiality of Alcohol and Drug Abuse Patient Records regulations: The Federal rules restrict any use of the information to criminally investigate or prosecute any alcohol or drug abuse patient.[facility] Reason for Visit (unrecogniz ed section and content) Reason Comments Lab Orders Reason Comments Thyroid Problem Diabetes Reason Comments Appointment Reason Comments Patient Question Care Teams (unrecognized sec tion and content) Team Status: Active Member Role Status Dates Jeff Jon DO Primary Care Provider Active Team Status: Inactive Member Role Status Dates Jeff Jon DO Primary Care Provider Active S tart: July 16, 2024 End: July 16, 2024 Carol Alegria DO Attending Provider Active St art: July 16, 2024 End: July 16, 2024 Team Status: Inactive Member Role Status Zach Jon DO Primary Care Provider Active S tart: July 30, 2024 End: July 30, 2024 Carol Alegria , DO Attending Provider Active St art: July 30, 2024 End: July 30, 2024 Team Status: Inactive Member Role Status Zach Jon DO Primary Care Provider Active S tart: August 01, 2024 End: August 01, 2024 Carol Rogers Ly , DO Attending Provider Active St art: August 01, 2024 End: August 01, 2024 Team Status: Active Member Role Status Zach Jon DO Primary Care Provide r, Attending Provider Active Start: August 05, 2024 Team Status: Active Member Role Status Zach Jon DO Primary Care Provider Active S tart: August 06, 2024 Joanne Woodall Attending Provider Active Start: [facility] 2024 Team Status: Inactive Member Role Status Zach Jon DO Primary Care Provide r, Attending Provider Active Start: September 01, 2024 End: September 01, 2024 Team Status: Active Member Role Status Zach Jon DO Primary Care Provide r, Attending Provider Active Start: September 05, 2024 Team Status: Inactive Member Role Status Zach Jon DO Primary Care Provider Active S tart: September 08, 2024 End: September 08, 2024 Lorena Rico APRN [facility] Attending Provider Active Start: September 08, 2024 End: September 08, 2024 Team Status: Active Member Role Status Zach Jon DO Primary Care Provide r, Attending Provider Active Start: June 26, 2024 Team Status: Inactive Member Role [...] June 13, 2024 End: June 13, 2024 Team Status: Active Member Role Status Zach Jon DO Primary Care Provide r, Attending Provider Active Start: March 20, 2024 Team Status: Inactive Member Role Status aZch Jon DO Primary Care Provider Active S tart: March 26, 2024 End: March 26, 2024 Lorena Rico APRN [facility] Attending Provider Active Start: March 26, 2024 [...] September 26, 2023 End: September 26, 2023 Maitre D Relationship Specialty Start Date End Date Jeff Jon, DO [address] [place] [address] PCP - General Family Practice 08/01/18 Maitre D Relationship Specialty Start Date End Date Jeff Jon, DO [address] [place] [id number] PCP - [facility] 08/01/18 Maitre D Relationship Specialty Start Date End Date Jeff Jon, DO [address] [place] [id number] PCP - [facility] 08/01/18 Maitre D Relationship Specialty Start Date End Date Jeff Jon, DO [address] [place] [address] PCP - [facility] 08/01/18 Maitre D Relationship Specialty Start Date End Date Jeff [...] Status Zach Jeff Jon DO Primary Care Provider Active S tart: February 12, 2024 End: February 12, 2024 Logan Brown MD Attending Provider Active Sta rt: February 12, 2024 End: February 12, 2024 Team Status: Inactive Member Role Status Zach Jeff Jon DO Primary Care Provide r, Attending Provider Active Start: October 24, 2024 End: October 24, 2024 Team Status: Inactive Member Role Status Zach Jon DO Primary Care Provider Active S tart: September 01, 2024 End: September 01, 2024 Jeff Jon DO Attending Provider Active Star t: September 01, 2024 End: September 01, 2024 Team Status: Active Member Role Status Zach Jon DO Primary Care Provider Active S tart: September 05, 2024 Jeff Jon DO Attending Provider Active Star t: September 05, 2024 Team Status: Inactive Member Role Status Zach Jon DO Primary Care Provider Active S tart: October 24, 2024 End: October 24, 2024 Jeff Jon DO Attending Provider Active Star t: October 24, 2024 End: October 24, 2024 Team Status: Active Member Role Status Zach Jon DO Primary Care Provider Active S tart: November 20, 2024 Jeff Jon DO Attending Provider Active Star t: November 20, 2024 Team Status: Active Member Role Status Zach Jon DO Primary Care Provider Active S tart: November 26, 2024 Jeff Jon DO Attending Provider Active Star t: November 26, 2024 Team Status: Inactive Member Role Status Zach Jon DO Primary Care Provider Active S tart: November 27, 2024 End: November 27, 2024 Jeff Jon DO Attending Provider Active Star t: November 27, 2024 End: November 27, 2024 Team Status: Inactive Member Role Status Zach Jon DO Primary Care Provider Active S tart: December 08, 2024 End: December 08, 2024 Lorena Rico APRN [facility] Attending Provider Active Start: December 08, 2024 End: December 08, 2024 Goals (unrecognized section and content) Goals [...] BE BASED ON THE PRIMARY CLINICAL RECORDS. [facility] [employer] [facility]. provides no warranty or guarantee of the accuracy or completeness of information in this document.
== END 2025-01-06 12:05 | disposition home or self-care (01) ==
LOC: LAB 12:06
PROVIDERS: PCP Family Medicine; Visit Provider Internal Medicine Interventional Cardiology
DX: R06.02 Shortness of breath (principal); R07.89 Other chest pain; R94.39 Abnormal result of other cardiovascular function study
CPT/HCPCS: 36415; 80048; 85025

== ENCOUNTER 2025-01-27 11:18 | Outpatient (OUT) | payer OTHER, SELFPAY ==
[2025-01-27 11:59] LABS: Anion Gap 14.2; Blood Urea Nitrogen 19.0 mg/dL (7.0-18.0); Calcium 9.6 mg/dL (8.5-10.1); Carbon Dioxide 27.3 mmol/L (21.0-32.0); Chloride 102 mmol/L (98-107); Estimated GFR (African America >60 (>=60 mL/min/1.73m^2); Estimated GFR (Non-African Ame >60 (>=60 mL/min/1.73m^2); Glucose 175 mg/dL (74-106); Potassium 4.5 mmol/L (3.5-5.1); Sodium 139 mmol/L (136-145)
== END 2025-01-27 11:19 | disposition home or self-care (01) ==
LOC: LAB 11:20
PROVIDERS: PCP Family Medicine; Visit Provider Internal Medicine Interventional Cardiology
DX: I10 Essential (primary) hypertension (principal)
CPT/HCPCS: 36415; 80048

== ENCOUNTER 2025-02-24 13:16 | Outpatient (OUT) | payer OTHER, SELFPAY ==
--- OUTSIDE RECORDS SUMMARY | 2025-02-24 07:54 | XMS_ITS | Continuity of Care Document ---
Author Organization [facility] Address [address] [place] [address] Phone Care Team Providers Care Oncology Navigator Name Role Phone Joe Barksdale DO Primary Care Provider Joe Barksdale DO Attending Provider Lorena Rico APRN Attending Provider [phone] Ambrose Espino MD Attending Provider Care Teams Patient Care Team Team Status: Active Member Role Status Dates Joe Barksdale DO Primary Care Provider Active Visit Care Team Team Status: Active Member [...] November 27, 2024 End: November 27, 2024 Visit Care Team Team Status: Inactive Member Role Status Zach Barksdale DO Primary Care Provider Active S tart: December 08, 2024 End: December 08, 2024 Lorena Rico APRN [facility]- Attending Provider Active Start: December 08, 2024 End: December 08, 2024 Patient Care Team Team Status: Active Member Role Status Zach Barksdale DO Primary Care Provider Active S tart: January 06, 2025 Ambrose Espino MD Attending Provider Active Start: January 06, 2025 Patient Care Team Team Status: Active Member Role Status Dates Joe Barksdale DO Primary Care Provider Active S tart: January 27, 2025 Ambrose Espino MD Attending Provider Active Start: January 27, 2025 Patient Care Team Team Status: Inactive Member Role Status Dates Joe Barksdale DO Primary Care Provider Active S tart: February 24, 2025 End: February 24, 2025 Joe Barksdale DO Attending Provider Active Star t: February 24, 2025 End: February 24, 2025 Chief Complaint and Reason for Visit Chief Complaint Admit Date review labs November 27, 2024 11:3 5am H mo f/u Asthma December 08, 2024 9:32 am blood sugars/discuss meds February 24 11:04am Reason for Visit Admit Date Diabetes November 27, 2024 11:3 5am Hyperlipidemia November 27, 2024 11:3 5am Hypertension November 27, 2024 11:3 5am Hypothyroidism November 27, 2024 11:3 5am Palpitation November 27, 2024 11:3 5am Polyarthralgia November 27, 2024 11:3 5am Vitamin D deficiency November 27, 2024 11: 35am Asthma December 08, 2024 9:32 am 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 December 08, 2024 9:32am GERD (gastroesophageal reflux disease) J trista 2024 9:32am Seasonal allergies December 08, 2024 9:32 am CHF (congestive heart failure) February 242024 11:04am Chronic pain February 24, 2025 11 :04am Diabetes February 24, 2025 11 :04am Hyperlipidemia February 24, 2025 11 :04am Hypertension February 24, 2025 11 :04am Shoulder pain, left February 24, 2025 11 :04am Allergies, Adverse Reactions, Alerts Allergen Type Severity Reaction Last Updated Verified Status clarithromycin Allergy Unknown diarrhea February 8:51am Yes Active levofloxacin Allergy Unknown Abdominal Pain, itches/pain February 24, 2025 8:51am Yes Active gatifloxacin Allergy Unknown Abdominal Pain February 24, 2025 8:51am Yes Active Social History Smoking Status Status [...] Acute cough Unknown Active 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) dr 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 Unknown Active Lumbar radiculopathy Unknown Active Sacroiliitis Unknown Active Hepatitis Unknown Active Lumbar stenosis Unknown Active Elevated blood pressure reading Unknown Active Fatigue Unknown Active Palpitation Unknown Active Diabetes Unknown Active Chronic pain Unknown Active Acute sinusitis Unknown Active Polyarthralgia Unknown Active CHF (congestive heart failure) Unknown Active Pulsatile tinnitus Unknown Active Anxiety Unknown Active Diarrhea Unknown Active Belching Unknown Active Seasonal allergies Unknown Active Hyperlipidemia Unknown Active Hypothyroidism Unknown Active Lumbosacral spondylosis Unknown Active Other chronic pain Unknown Active COPD (chronic obstructive pu lmonary disease) with emphysema Unknown Active Wheezing Unknown Active Abnormal CT scan, chest Unknown Active CT c hest 08/05/24 done at [facility] Asymmetrical sensorineural h earing loss Unknown [...] at bedtime January 08, 2024 11:29a m [facility] 2023 9:14a m TAKE 1 TABLET AT BEDTIME Amoxicillin -Pot Clavulanate 875-125 mg tablet Discont inued 1 TAB PO Twice daily 09 03January 08, 2024 12:00a [facility] 2023 12:37 pm with food Meloxicam 15 mg tablet Discont inued 0 .ROUTE .COMPLEX 90 January 14, 2024 10:16a m 2024 1:23p m TAKE 1 TABLET DAILY Metformin 500 mg tablet extended release 24 hr Discont inued 500 MG PO .[facility] January 14, 2024 10:36a m [facility] 2023 10:42 am 500 mg orally take 2 (500 mg) tabs twice a day with meals; Metformin 500 mg tablet extended release 24 hr Discont inued 0 .ROUTE .COMPLEX 360 January 14, 2024 10:41a m [facility] 2023 9:14a m TAKE 2 TABLETS TWICE A DAY WITH MEALS Metformin 500 mg tablet extended release 24 hr Discont inued 0 .ROUTE .COMPLEX 360 [facility] 2023 9:13am 2024 1:23p m TAKE 2 TABLETS TWICE A DAY WITH MEALS Losartan 50 mg tablet Discont inued 50 MG PO Daily [facility] 2023 9:14am September 08, 2024 10:07 am Levothyroxi ne 200 mcg tablet Discont inued 200 MCG PO Daily [facility] 2023 9:14am August 18, 2024 10:58 am take first thing in the morning on an empty stomach, do not eat or drink for 30-45 min after taking Cyclobenzap rine 10 mg tablet Discont inued 10 MG PO Daily at bedtime 90 [facility] 2023 9:14am August 18, 2024 11:47 am TAKE 1 TABLET AT BEDTIME Montelukast (Singulair) 10 mg tablet Active 10 MG PO Daily at bedtime 90 [facility] 2023 9:15am Complies with drug therapy Esomeprazol e Magnesium (Nexium) 40 mg capsule,del ayed release(DR/ EC) Active 40 MG PO Daily 90 [facility] 2023 9:16am Complies with drug therapy Prednisone 20 mg tablet Discont inued 0 PO daily 18 [facility] 2023 1:00am Janua ry 2024 1:16p m 3 tablets by [...] OR MILK; Cyclobenzap rine 10 mg tablet Discont inued 10 MG PO Daily at bedtime December 16, 2024 9:14am Octob er 2024 11:44 am TAKE 1 TABLET AT BEDTIME Fluticasone Propion-Fabio meterol (Advair Diskus) 250-50 mcg/dose blister with device Active 1 INH INHALA TION Q12H 3 December 18, 2024 8:30am Complies with drug therapy Meloxicam 15 mg tablet Discont inued 0 .ROUTE .COMPLEX 90 Sept2024 8:53am Octob er 2024 11:19 am TAKE 1 TABLET BY MOUTH DAILY Cyclobenzap rine 10 mg Tablet Discont inued [...] 9:16a m Mometasone (Nasonex) 50 mcg/actuati on [place],Non-A erosol Discont inued 2 SPRAY INTRAN CLARISSE [...] tablet Discont inued 10 MG PO Daily 30 September 16, 2017 12:00a m August 28, [...] therapy Empaglifloz in (Jardiance) 10 mg tablet Discont inued 10 MG PO Every morning November 27, 2024 12:00a m Octob er 2024 11:08 am Losartan 50 mg tablet Discont inued 50 MG PO Daily November 27, 2024 12:14p m Octob er 2024 11:08 am Levothyroxi ne 200 mcg tablet Active 200 [...] 2023 1:05p m Meloxicam 15 mg tablet Discont inued 15 MG PO Daily 2024 1:22pm Septe mber 2024 8:54a m Metformin 500 mg tablet extended release 24 hr Discont inued 1000 MG PO .COMPLEX 2024 1:22pm Octob er 2024 11:09 am 1,000 mg orally BID as normal; Prednisone 20 mg tablet Discont inued 0 [...] November 27, 2024 11:42 am with food Furosemide 40 mg tablet Active 40 MG PO Daily Octobe r 2024 12:00a m Complies with drug therapy Atorvastati n 40 mg tablet Active 40 MG PO Daily Octobe r 2024 12:00a m Complies with drug therapy Diltiazem Hcl (Cartia Xt) 240 mg capsule,ext ended release 24hr Active MG PO Octobe r 2024 12:00a m Complies with drug therapy Spironolact one 25 mg tablet Active 25 MG PO .COMPLEX Octobe r 2024 12:00a m 25 mg orally TAKE 1/2 TABLET BY MOUTH IN THE MORNING; Complies with drug therapy Dapaglifloz in Propanediol (Farxiga) 10 mg tablet Active 10 MG PO Daily Octobe r 2024 12:00a m Complies with drug therapy Meloxicam 15 mg tablet Discont inued 15 MG PO Daily Octobe r 2024 11:18a m Octob er 2024 11:32 am Tramadol 50 mg tablet Active 50 MG PO Twice daily as needed for pain 14 7 Octobe r 2024 12:00a m Complies with drug therapy Immunizations Immunization Event Date Not Given Reason Dose Number [employer] Hel[employer] Lot Number Vaccine Information Statement (VIS) Detail Administration Location COVID-19 mRNAGermán (Pfizer) September 02, 2020 [id number] [facility] COVID-19 mRNABriannatjesus (Pfizer) September 23, 2020 [id number] [facility] Tetanus, Diphtheria, Pertussis (Tdap) December 16, 2011 Tetanus, Diphtheria, Pertussis (Tdap) December 12, 2024 Trivalent Influenza Vaccine March 15, 2021 Patient Refused Relevant Diagnostic Tests and/or Laboratory Data Laboratory Results Test Collection Date/Time Result Date/Time Result Interpretation Reference Range Result Comment Performing Site Urine Bilirubi n November 26, 2024 9:55am November 26, 2024 9:55am NEGATIVE NEGATIVE Estimate d Average Glucose November 26, 2024 10:40am November 26, 2024 10:40am 186 mg/dL Basophil s # (Auto) November 26, 2024 10:40am November 26, 2024 10:40am 0.1 10 3/uL 0.0-0.1 Basophil s # (Auto) January 06, 2025 12:15pm January 06, 2025 12:15pm 0.1 10 3/uL 0.0-0.1 Anion Gap January 06, 2025 12:15pm January 06, 2025 12:15pm 9.4 Anion Gap January 27, 2025 11:26am January 27, 2025 11:26am 14.2 Urine Occult Blood November 26, 2024 9:55am November 26, 2024 9:55am NEGATIVE NEGATIVE Hemoglob in A1c November 26, 2024 10:40am November 26, 2024 10:40am 8.1 % Above high normal 4.5-6.2 ADA RECOMMENDED LIMIT 4.0 - 6.0ADA THERAPEUTIC TARGET < 7.0ACTION SUGGESTED> 7.0 Basophil s (%) (Auto) November 26, 2024 10:40am November 26, 2024 10:40am 0.7 % 0.2-2.0 Basophil s (%) (Auto) January 06, 2025 12:15pm January 06, 2025 12:15pm 1.0 % 0.2-2.0 BUN/Crea tinine Ratio January 06, 2025 12:15pm January 06, 2025 12:15pm 28.4 BUN/Crea tinine Ratio January 27, 2025 11:26am January 27, 2025 11:26am 20.2 Urine Appearan ce November 26, 2024 9:55am November 26, 2024 9:55am CLEAR CLEAR Eosinoph ils # (Auto) November 26, 2024 10:40am November 26, 2024 10:40am 0.3 10 3/uL 0.0-0.7 Eosinoph ils # (Auto) January 06, 2025 12:15pm January 06, 2025 12:15pm 0.5 10 3/uL 0.0-0.7 Blood Urea Nitrogen January 06, 2025 12:15pm January 06, 2025 12:15pm 19.0 mg/dL Above high normal 7.0-18.0 Blood Urea Nitrogen January 27, 2025 11:26am January 27, 2025 11:26am 19.0 mg/dL Above high normal 7.0-18.0 Urine Color November 26, 2024 9:55am November 26, 2024 9:55am LT. YELLOW YELLOW Eosinoph ils (%) (Auto) November 26, 2024 10:40am November 26, 2024 10:40am 4.6 % 0.9-7.0 Eosinoph ils (%) (Auto) January 06, 2025 12:15pm January 06, 2025 12:15pm 6.1 % 0.9-7.0 Calcium Level January 06, 2025 12:15pm January 06, 2025 12:15pm 9.2 mg/dL 8.5-10.1 Calcium Level January 27, 2025 11:26am January 27, 2025 11:26am 9.6 mg/dL 8.5-10.1 Urine Glucose (UA) November 26, 2024 9:55am November 26, 2024 9:55am NEGATIVE mg/dL NEGATIVE Hematocr it November 26, 2024 10:40am November 26, 2024 10:40am 40.2 % 36.0-48.0 Hematocr it January 06, 2025 12:15pm January 06, 2025 12:15pm 40.9 % 36.0-48.0 Chloride Level January 06, 2025 12:15pm January 06, 2025 12:15pm 104 mmol/L 98-107 Chloride Level January 27, 2025 11:26am January 27, 2025 11:26am 102 mmol/L 98-107 Urine Ketones November 26, 2024 9:55am November 26, 2024 9:55am NEGATIVE mg/dL NEGATIVE Hemoglob in November 26, 2024 10:40am November 26, 2024 10:40am 13.4 g/dL 12.0-16.0 Hemoglob in January 06, 2025 12:15pm January 06, 2025 12:15pm 13.7 g/dL 12.0-16.0 Carbon Dioxide Level January 06, 2025 12:15pm January 06, 2025 12:15pm 30.0 mmol/L 21.0-32.0 Carbon Dioxide Level January 27, 2025 11:26am January 27, 2025 11:26am 27.3 mmol/L 21.0-32.0 Urine Leukocyt e Esterase November 26, 2024 9:55am November 26, 2024 9:55am NEGATIVE NEGATIVE Immature Granuloc yte # (Auto) November 26, 2024 10:40am November 26, 2024 10:40am 0.04 10 3/uL Above high normal 0.00-0.03 Immature Granuloc yte # (Auto) January 06, 2025 12:15pm January 06, 2025 12:15pm 0.02 10 3/uL 0.00-0.03 Creatini ne January 06, 2025 12:15pm January 06, 2025 12:15pm 0.67 mg/dL 0.55-1.02 Creatini ne January 27, 2025 11:26am January 27, 2025 11:26am 0.94 mg/dL 0.55-1.02 Urine Nitrite November 26, 2024 9:55am November 26, 2024 9:55am NEGATIVE NEGATIVE Immature Granuloc yte % (Auto) November 26, 2024 10:40am November 26, 2024 10:40am 0.6 % Above high normal 0.0-0.5 Immature Granuloc yte % (Auto) January 06, 2025 12:15pm January 06, 2025 12:15pm 0.3 % 0.0-0.5 Estimate d GFR ( ) January 06, 2025 12:15pm January 06, 2025 12:15pm >60 >=60 mL/min/1.7 3m 2 Estimate d GFR ( ) January 27, 2025 11:26am January 27, 2025 11:26am >60 >=60 mL/min/1.7 3m 2 Urine pH November 26, 2024 9:55am November 26, 2024 9:55am 6.0 5.0-9.0 Lymphocy oren # (Auto) November 26, 2024 10:40am November 26, 2024 10:40am 1.9 10 3/uL 1.2-3.8 Lymphocy oren # (Auto) January 06, 2025 12:15pm January 06, 2025 12:15pm 2.3 10 3/uL 1.2-3.8 Estimate d GFR (Non-Afr ican Togolese January 06, 2025 12:15pm January 06, 2025 12:15pm >60 >=60 mL/min/1.7 3m 2 Estimate d GFR (Non-Afr ican Togolese January 27, 2025 11:26am January 27, 2025 11:26am >60 >=60 mL/min/1.7 3m 2 Urine Protein November 26, 2024 9:55am November 26, 2024 9:55am NEGATIVE mg/dL NEG/TRACE Lymphocy oren (%) (Auto) November 26, 2024 10:40am November 26, 2024 10:40am 25.8 % 20.5-60.0 Lymphocy oren (%) (Auto) January 06, 2025 12:15pm January 06, 2025 12:15pm 28.9 % 20.5-60.0 Glucose Level January 06, 2025 12:15pm January 06, 2025 12:15pm 134 mg/dL Above high normal 74-106 Glucose Level January 27, 2025 11:26am January 27, 2025 11:26am 175 mg/dL Above high normal 74-106 Urine Specific Reliance November 26, 2024 9:55am November 26, 2024 9:55am >=1.030 Abnormal (applies to non-numeric results) 1.005-1.02 5 Mean Corpuscu lar Hemoglob in November 26, 2024 10:40am November 26, 2024 10:40am 31.0 pg 26.7-34.0 Mean Corpuscu lar Hemoglob in January 06, 2025 12:15pm January 06, 2025 12:15pm 30.9 pg 26.7-34.0 Potassiu m Level January 06, 2025 12:15pm January 06, 2025 12:15pm 4.4 mmol/L 3.5-5.1 Potassiu m Level January 27, 2025 11:26am January 27, 2025 11:26am 4.5 mmol/L 3.5-5.1 Urine Urobilin ogen November 26, 2024 9:55am November 26, 2024 9:55am 0.2 EU/dL 0.2-1.0 Mean Corpuscu lar Hemoglob in [facility] November 26, 2024 10:40am November 26, 2024 10:40am 33.3 g/dL 29.9-35.2 Mean Corpuscu lar Hemoglob in [facility] January 06, 2025 12:15pm January 06, 2025 12:15pm 33.5 g/dL 29.9-35.2 Sodium Level January 06, 2025 12:15pm January 06, 2025 12:15pm 139 mmol/L 136-145 Sodium Level January 27, 2025 11:26am January 27, 2025 11:26am 139 mmol/L 136-145 Mean Corpuscu lar Volume November 26, 2024 10:40am November 26, 2024 10:40am 93.1 fL 81.0-99.0 Mean Corpuscu lar Volume January 06, 2025 12:15pm January 06, 2025 12:15pm 92.3 fL 81.0-99.0 Monocyte s # (Auto) November 26, 2024 10:40am November 26, 2024 10:40am 0.6 10 3/uL 0.3-0.8 Monocyte s # (Auto) January 06, 2025 12:15pm January 06, 2025 12:15pm 0.5 10 3/uL 0.3-0.8 Monocyte s (%) (Auto) November 26, 2024 10:40am November 26, 2024 10:40am 7.7 % 1.7-12.0 Monocyte s (%) (Auto) January 06, 2025 12:15pm January 06, 2025 12:15pm 6.4 % 1.7-12.0 Mean Platelet Volume November 26, 2024 10:40am November 26, 2024 10:40am 9.6 fL 9.5-13.5 Mean Platelet Volume January 06, 2025 12:15pm January 06, 2025 12:15pm 10.5 fL 9.5-13.5 Neutroph ils # (Auto) November 26, 2024 10:40am November 26, 2024 10:40am 4.4 10 3/uL 1.4-6.5 Neutroph ils # (Auto) January 06, 2025 12:15pm January 06, 2025 12:15pm 4.5 10 3/uL 1.4-6.5 Neutroph ils (%) (Auto) November 26, 2024 10:40am November 26, 2024 10:40am 60.6 % 43.0-75.0 Neutroph ils (%) (Auto) January 06, 2025 12:15pm January 06, 2025 12:15pm 57.3 % 43.0-75.0 Platelet Count November 26, 2024 10:40am November 26, 2024 10:40am 306 10 3/uL 150-450 Platelet Count January 06, 2025 12:15pm January 06, 2025 12:15pm 358 10 3/uL 150-450 Red Blood Count November 26, 2024 10:40am November 26, 2024 10:40am 4.32 10 6/uL 4.20-5.40 Red Blood Count January 06, 2025 12:15pm January 06, 2025 12:15pm 4.43 10 6/uL 4.20-5.40 Red Cell Distribu tion Width November 26, 2024 10:40am November 26, 2024 10:40am 12.0 % 11.0-15.0 Red Cell Distribu tion Width January 06, 2025 12:15pm January 06, 2025 12:15pm 12.2 % 11.0-15.0 Correcte d White Blood Count November 26, 2024 10:40am November 26, 2024 10:40am 7.2 10 3/uL 4.0-11.0 Correcte d White Blood Count January 06, 2025 12:15pm January 06, 2025 12:15pm 7.9 10 3/uL 4.0-11.0 Vital Signs Vital Reading [...] 08, 2024 9:37am Respiratory rate 20 /min -December 08, 2024 9:37am Oxygen saturation by Pulse oximetry 96 % 95-100 December 08, 2024 9:37 am BP Systolic 154 mm[Hg] 100-140 December 08, 2024 9:40am BP Diastolic 95 mm[Hg] 60-100 December 08, 2024 9:40am BMI (Body Mass Index) 46.7 kg/m2 November 192024 9:37am Height 65 [in_i] February 24 10:48am Weight 119.29 kg February 24 10:48am Body Temperature 97.9 [degF] 97.6-99.0 February 10:48am Heart Rate 90 /min 60-100 February 24 10:48am Oxygen saturation by Pulse oximetry 97 % 95-100 February 24, 2025 10 :48am BP Systolic 146 mm[Hg] 100-140 February 24 11:15am BP Diastolic 90 mm[Hg] 60-100 February 24 11:15am BMI (Body Mass Index) 43.7 kg/m2 Octobe 2024 10:48am Advance Directives Advance Directive Response Recorded Date/ Time Advance Directives No September 14 018 9:20pm Insurance Providers Guarantor Laura Pathak Address [address] [place] [address] Contact Info. Home Phone: Payer Policy Id Subscriber's Name Subscriber Id Effectiv e Date Expiration Date John GUTIÉRREZ [id number] 2 Bobby Noble [id number] [employer] [id number] Bobby Noble [id number] Encounters Encounter Location(s) Arrival/Admit Date Discharge/Depart Date Provider(s) Non-patient / Non-visit -[facility] November 26, 2024 9:55am Joe Barksdale DO Departed Physician/Prov ider Office Visit -[facility] November 27, 2024 11:35am November 27, 2024 12:23pm Joe Barksdale DO Departed Physician/Prov ider Office Visit -[facility] December 08, 2024 9:32am December 08, 2024 10:17am Oscar Vicente APRN-BC Non-patient / Non-visit -[facility] January 06, 2025 12:15pm Ambrose Colvin MD Non-patient / Non-visit -[facility] January 27, 2025 11:26am Ambrose Colvin MD Departed Physician/Prov ider Office Visit -[facility] February 24, 2025 11:04am February 24, 2025 11:53am Joe Barksdale DO Recent Diagnosis Onset Date Admit Date Diabetes Unknown November 27, 2024 11:35am Hyperlipidemia Unknown November 27, 2024 11:35am Hypertension Unknown November 27, 2024 11:35am Hypothyroidism Unknown November 27, 2024 11:35am Palpitation Unknown November 27, 2024 11:35am Polyarthralgia Unknown November 27, 2024 11:35am Vitamin D deficiency Unknown November 27, 2024 11:35am Asthma Unknown December 08, 2024 9:32am COPD (chronic obstructive pu lmonary disease) with emphysema Unknown December 08, 2024 9:32am GERD (gastroesophageal reflux disease) Unknown December 08, 2024 9:32am Seasonal allergies Unknown December 08 9:32am CHF (congestive heart failure) Unknown O ct2024 11:04am Chronic pain Unknown February 24 11:04am Diabetes Unknown February 24 11:04am Hyperlipidemia Unknown February 24 11:04am Hypertension Unknown February 24 11:04am Shoulder pain, left Unknown February 24, 2025 11:04am Assessments Author Joe Barksdale [facility] Authored November 27, 2024 12:3 4pm The above note written by __ _Gail Saul____ acting as human recorder, note dictated by Dr. Jones .I performed the above HPI, ROS, and Examination. I formulated and dictated the treatment plan and was present for entire encounter. Joe Barksdale D.O. Plan of Treatment Author Lorena Rico [facility] Authored December 08, 2024 10:3 2am Patient's [...] no refills are required at this time. Author Gail Saul [facility] Authored November 27, 2024 12:2 4pm She [...] a different blood pressure medication by the health analytics consultant. I did recommend that she restart the [...] to see. She saw a specialist in [place] who increased her Metformin dose to 2 [...] infections she should let myself or her [employer] know. I will order lab to be [...] she will get this done through her BUGGY LOADER in [place]. Author Gail Saul [facility] Authored February 24, 2025 11 :50am She voices that she had a wo rk up done for her lungs and was on repeated treatment with Prednisone in the spring (2024). The last time she was off the Prednisone she was off of it long enough to have a stress test and echo done and the stress test came back abnormal. She saw the health analytics consultant on a Sunday and he told her she needed a heart cath done BORA but she had to be off Meloxicam for three days so it was done that . She had the heart cath done and it was terrible they sedated her three times and she felt everything. The results of the heart cath was biventricular congestive heart failure. She was on Jardiance in November (2024) and she was getting this filled when all of this happened and then Dr. Espino started her on so she was told to stop the Jardiance. She was on an ASA but two weeks ago he took her off it. She is on Lasix and Spironolactone. Her potassium was checked one week after taking Lasix and she has another lab order to have this checked for Dr. Espino in one month. Two weeks after starting the medications she felt better. When she was started on Farxiga she stopped Metformin. She never ended up taking the Jardiance because she ended up having a heart cath done and the Farxiga was started. She will have lab drawn this week and we will discuss her readings next week. If needed we can discuss having her return to Metformin. She admits she does not want to take Metformin again unless she absolutely has to, the Metformin caused diarrhea for her and she was always in the bathroom. Since starting the Farxiga she has already lost weight, she is eating more proteins and is eating more salads. She does not want the junk she wanted before. Anticipate that now that she is not on Prednisone she will be able to lose weight easier. She was able to buy her favorite candy recently and has not eaten any of it. She is taking Atorvastatin at this time. She will be having lab to check her cholesterol later this week. She feels very rushed with Dr. Espino when she is seen and she did not feel that her questions were answered. She was told that she could not take CBD for her pain. He told her to take Tylenol and she told him that this would not work. He told her she could take Meloxicam as needed, she has not been taking this at all. I did advise her that Meloxicam worsens CHF. Dr. Espino suggested a GLP-1 but she refuses to take one of these. She voices that she continues to have wide spread hurt from head to toe pain. She has Flexeril and she will take that at night which does help her sleep but it does not help her pain. She cannot take it during the day because it makes her sleepy. She tried Tramadol in the past. She cannot take NSAID medication including Prednisone because of CHF and her heart history. I did recommend she try Tramadol again, it is a narcotic but has the lowest addiction potential. Side effects/risks/benefits of medication were reviewed. If she starts the Tramadol she has to discontinue the Flexeril due to interactions. She is agreeable to trying the Tramadol. Addiction potential is discussed. She feels if she has better pain control she will be in a better position to lose weight. Do not drink any alcohol within 12 hours of taking Tramadol. Frequent appointments needed due to addiction potential of medication. Pain inventory sheet completed and reviewed if opioid medication given. Pain contract is on file if pertinent. Patient will have office visits every three months for evaluation or sooner if needed. I discussed addiction potential of medication with the patient. Discussed with the patient and provided a treatment plan including the use of non-opioid analgesics and non-pharmacological intervention with patient if treated for pain. We have discussed realistic benefits and known risks of opioid/controlled therapy and the expected benefits for both pain and function. These benefits outweigh the risks. Patient has been counselled on the dangers of combining opioids/controlled prescriptions with alcohol or other sedatives and counseled on the safe storage and disposal of opioids/controlled prescriptions. Do not drive or operate heavy machinery after taking opioid/controlled medication. I have verified that no current substance abuse treatments are being prescribed. She is going to see her insurance billing specialist for ongoing left shoulder pain. Her blood pressure is elevated today. She voices that she is stressed today due to caring for her aunt who is mentally disabled and just recently had a procedure done. She has lost 16 pounds since November (2024), anticipate that continued weight loss and dietary changes will help to lower her blood pressure. Future Tests Future scheduled test information is [...]
--- OUTSIDE RECORDS SUMMARY | 2025-02-24 13:20 | XMS_ITS | Encounter Summary ---
Author Organization [facility] Address [address] [place] [address] Care Team Providers Care Truck Mechanic Apprentice Name Role Phone Jose Luis Rodriguez Primary Care Provider [phone] Joe Barksdale DO Primary Care Provider [phone] Source Comments In the event this information is protected by the Federal Confidentiality of Alcohol and Drug AbusePatient Records regulations: The Federal rules restrict any use of the information to criminally investigate or prosecute any alcohol or drug abuse patient.[facility] Encounter Details Date Type Department Care Team (Late st Contact Info) Description 11/13/2016 Patient Msg Functional Medicine [address] [address] [place] [address] [place] [address] Appointment Cancellation Request Social History Tobacco Use [...] on filedocumented in this encounter Care Teams Truck Mechanic Apprentice Relationship Specialty Start Date End Date Jennifer Jose Luis [address]div[address] [place] [address] PCP - General 03/16/08 07/31/18 Joe Barksdale DO [address] [place] [address] PCP - General Family Medicine 08/01/18 documented as of this encounter
--- OUTSIDE RECORDS SUMMARY | 2025-02-24 13:20 | XMS_ITS | Encounter Summary ---
Author Organization [facility] Address [address] [place] [address] Care Team Providers Care Construction Representative Name Role Phone Joe Barksdale MD Primary Care Provider [phone] Encounter Details Date Type Department Care Team (Late st Contact Info) Description 09/24/2023 Orders Only [facility] [address] [place] [address] [place] [address] Livia Kirk, [place] 112 [facility] 130 [place] [address] Asymmetric SNHL (sensorineural hearing loss); Right-sided tinnitus; [...] right documented in this encounter Care Teams Construction Representative Relationship Specialty Start Date End Date Joe Barksdale MD [address] [place] [id number] PCP - General Family Medicine 10/18/22 documented as of this encounter
--- OUTSIDE RECORDS SUMMARY | 2025-02-24 13:20 | XMS_ITS | Encounter Summary ---
Author Organization [facility] Address [address] [place] [address] Care Team Providers Care Gut Dropper Name Role Phone Joe Barksdale MD Primary Care Provider [phone] Encounter Details Date Type Department Care Team (Late st Contact Info) Description 10/04/2022 Abstract [facility] 112 [facility] [address] [place] [address] Livia Kirk, RN 112 [facility] [address] [place] [address] Social History Tobacco Use Types Packs/Day Years [...] on filedocumented in this encounter Care Teams Gut Dropper Relationship Specialty Start Date End Date Joe Barksdale MD [address] [place] [address] PCP - General Family Medicine 10/18/22 documented as of this encounter
--- OUTSIDE RECORDS SUMMARY | 2025-02-24 13:20 | XMS_ITS | Encounter Summary ---
Author Organization [facility] Address [address] [place] [address] Care Team Providers Care Trust Vault Custodian Name Role Phone Jeff Jon MD Primary Care Provider [phone] Encounter Details Date Type Department Care Team (Late st Contact Info) Description 09/04/2023 Clinisync Result Encounter [facility] External Department Unsolicited Jennie Guillermo MD [address] [facility] [address] [place] [id number] Social History Tobacco Use Types Packs/Day Years [...] PM EDT Narrative 09/04/2023 4:54 PM EDT [address] [address] [address] Scan Report Signed Patient: CANELO SINGH MR#: [id number] : 1965 Acct:[id number] Age/Sex: 57 / F ADM Date: 09/04/23 Loc: CT Attending Dr: Jennie Guillermo M.D. Ordering Physician: Jennie Guillermo M.D. Date of Service: 09/04/23 Procedure(s): CT int auditory canals w con Accession Number(s): [id number] cc: JEFF JON [place] [address] Patient Name: CANELO SINGH MRN: [id number] date: 1965 Sex: F Assigned Patient Location: CT Current Patient Location: CT Accession/Order Number: [id number] Exam Date: 09/04/2023 13:20 Report Date: 09/04/2023 [...] M.D. Signed By: 09/04/231653 DD/ 51 TD/TT: Industrial Seamstress: Procedure Note Radiology, Radiologist, MD - 09/04/2023 [place] [address] CT Scan Report Signed Patient: CANELO SINGH LMR#: [id number] : 1965Acct:[id number] Age/Sex: 57 / FADM Date: 09/04/23 Loc: CT Attending Dr: Jennie Guillermo M.D. Ordering Physician: Jennie Guillermo M.D. Date of Service: 09/04/23 Procedure(s): CT int auditory canals w con Accession Number(s): [id number] cc: JEFF JON [place] [address] Patient Name: CANELO SINGH MRN: [id number] date: 1965 Sex: F Assigned Patient Location: CT Current Patient Location: CT Accession/Order Number: [id number] Exam Date: 09/04/2023 13:20 Report Date: 09/04/2023 [...] VEE M.D. Signed By:09/04/231653 DD/ 51 TD/TT: Industrial Seamstress: us Jennie Guillermo MD IMG CT PROCEDURES Final Resul t documented in this encounter Visit Diagnoses Not on filedocumented in this encounter Care Teams Trust Vault Custodian Relationship Specialty Start Date End Date Jeff Jon MD [address] [place] [address] [place] [address] PCP - General Family Medicine 10/18/22 documented as of this encounter
--- OUTSIDE RECORDS SUMMARY | 2025-02-24 13:20 | XMS_ITS | Encounter Summary ---
Author Organization [facility] Address [address] [place] [address] Care Team Providers Care Border Patrol Agent Name Role Phone Jeff Jon MD Primary Care Provider [phone] Encounter Details Date Type Department Care Team (Late st Contact Info) Description 10/09/2023 Clinisync Result Encounter [facility] External Department Unsolicited Marianela Guillermo MD [address] [facility] [address] [place] [address] Social History Tobacco Use Types Packs/Day Years [...] EDT Narrative 10/09/2023 9:18 PM EDT The [address] [address] Magnetic Resonance Report Signed Patient: CANELO SINGH MR#: [id number] : 1965 Acct:[id number] Age/Sex: 58 / F ADM Date: 10/09/23 Loc: MRI Attending Dr: Marianela Guillermo M.D. Ordering Physician: Marianela Guillermo M.D. Date of Service: 10/09/23 Procedure(s): MR head/brain wo/w con Accession Number(s): [id number] cc: JEFF JON ; Marianela Guillermo M.D. The [address] [address] Patient Name: CANELO SINGH MRN: [id number] date: 1965 Sex: F Assigned Patient Location: MRI Current Patient Location: MRI Accession/Order Number: [id number] Exam Date: 10/09/2023 12:50 Report Date: 10/09/2023 [...] M.D. Signed By: 10/09/232117 DD/ 14 TD/TT: Granite Cutter: Procedure Note Radiology, Radiologist, MD - 10/09/2023 [place] [address] Magnetic Resonance Report Signed Patient: CANELO SINGH LMR#: [id number] : 1965Acct:[id number] Age/Sex: 58 / FADM Date: 10/09/23 Loc: MRI Attending Dr: Marianela Guillermo M.D. Ordering Physician: Marianela Guillermo M.D. Date of Service: 10/09/23 Procedure(s): MR head/brain wo/w con Accession Number(s): [id number] cc: JEFF JON ; Marianela Guillermo M.D. The [place] [id number] Patient Name: CANELO SINGH MRN: [id number] date: 1965 Sex: F Assigned Patient Location: MRI Current Patient Location: MRI Accession/Order Number: [id number] Exam Date: 10/09/2023 12:50 Report Date: 10/09/2023 [...] Patel M.D. Signed By:10/09/232117 DD/ 14 TD/TT: Granite Cutter: us Marianela Guillermo MD IMG XR PROCEDURES Final Resul t documented in this encounter Visit Diagnoses Not on filedocumented in this encounter Care Teams Border Patrol Agent Relationship Specialty Start Date End Date Jeff Jon MD [address] [place] [address] [address] [place] [id number] PCP - General Family Medicine 10/18/22 documented as of this encounter
--- OUTSIDE RECORDS SUMMARY | 2025-02-24 13:20 | XMS_ITS | Clinical Summary ---
Author Organization [facility] Address [address] [place] [address] Care Team Providers Care Bacteriologist Soil Name Role Phone Joe Barksdale MD Primary Care Provider [phone] Allergies Active Allergy Reactions Criticality Noted Date [...] Hypertension 10/11/2023 Hypothyroidism 10/11/2023 Osteoarthritis 10/11/2023 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 Palpitation 10/11/2023 Polyarthralgia 10/11/2023 [...] Vaccine (#1) 2025 Insurance [employer] Care Teams Bacteriologist Soil Relationship Specialty Start Date End Date Joe Barksdale MD [address] [place] [address] PCP - General Family Medicine 10/18/22
--- OUTSIDE RECORDS SUMMARY | 2025-02-24 13:20 | XMS_ITS | Clinical Summary ---
Author Organization [facility] Address [address] [place] [address] Care Team Providers Care Side Laster Name Role Phone Joe Barksdale Lilli BETH Primary Care Provider [phone] Allergies Active Allergy Reactions Criticality Noted Date [...] 9 Active mometasone furoate(NASONEX 50 MCG/ACTUATION SPRAY) [place] twice in each nostril once daily. 0 [...] History Medical History Relation Comments Hypertension Brother HI Brother Diabetes Father Ischemic Heart Disease Father [...] N ot on file 06/07/2022 Data from: https://www.neighborhoodatlas.medicine.[facility].edu/. Last address used for calculation [address] [...] COMP METABOLIC PANEL (10/07/2021 2:42 PM EDT) [facility] Protein, Total 7.3 6.3 - 8.0 g/dL 10/07/2021 8:04 PM EDT [facility] Albumin 4.8 3.9 - 4.9 g/dL 10/07/2021 8:04 PM EDT [facility] Calcium, Total 10.3(H) 8.5 - 10.2 mg/dL 10/07/2021 8:04 PM EDT [facility] Bilirubin, Total 0.5 0.2 - 1.3 mg/dL 10/07/2021 8:04 PM EDT [facility] Alkaline Phosphatase 72 34 - 123 U/L 10/07/2021 8:04 PM EDT [facility] AST 17 13 - 35 U/L 10/07/2021 8:04 PM EDT [facility] ALT 24 7 - 38 U/L 10/07/2021 8:04 PM T [facility] Glucose 124(H) 74 - 99 mg/dL 10/07/2021 8:04 PM T [facility] Comment: The [place] Diabetes Association (ADA) provides guidance for cutoff [...] Standards of Medical Care in Diabetes 2016, [place] [employer]. Diabetes Care. 2016.39(Suppl 1). BUN 18 7 - 21 mg/dL 10/07/2021 8:04 PM T [facility] Creatinine 0.70 0.58 - 0.96 mg/dL 10/07/2021 8:04 PM T [facility] Sodium 139 136 - 144 mmol/L 10/07/2021 8:04 PM T [facility] Potassium 4.1 3.7 - 5.1 mmol/L 10/07/2021 8:04 PM EDT [facility] Chloride 100 97 - 105 mmol/L 10/07/2021 8:04 PM EDT [facility] CO2 28 22 - 30 mmol/L 10/07/2021 8:04 PM EDT [facility] Anion Gap 11 9 - 18 mmol/L 10/07/2021 8:04 PM EDT [facility] Estimated Glomerular Filtration Rate 103 >=60 mL/min/1. 73m 10/07/2021 8:04 PM EDT [facility] Comment:Estimated Glomerular Filtration Rate (eGFR) is [...] us Neto Ansari MD LABORATORY Final Result [facility] [address] [place] [address], * HEP REMOTE PANEL BL (05/16/2007 2:25 PM EST) Hep B Core Ab, Total Negative NEGAT [facility] Hep C Antibody IA Negative NEGAT [facility] HBsAg Negative NEGAT [facility] Hep B Surface Ab, Qual Negative NEGAT [facility] Comment: A negative Hepatitis [...] us Leena Seymour MD LABORATORY Final Result [facility] [address] [place] [address] from Last 3 Months or Most Recently Relevant to Health Maintenance Insurance [employer] Care Teams Side Laster Relationship Specialty Start Date End Date Joe Barksdale DO [address] [place] [address] PCP - General Family Medicine 08/01/18
--- OUTSIDE RECORDS SUMMARY | 2025-02-24 13:20 | XMS_ITS | Clinical Summary ---
Author Organization [facility] Address [address] [facility], [address] [place] [address] Care Team Providers Care Clasp Machine Operator Name Role Phone Joe Barksdale DO [...] Not on file Insurance [employer] Care Teams Clasp Machine Operator Relationship Specialty Start Date End Date Joe Barksdale DO PCP - General Family Medicine 09/17/18
--- OUTSIDE RECORDS SUMMARY | 2025-02-24 13:20 | XMS_ITS | Encounter Summary ---
Author Organization [facility] Address [address] [place] [address] Care Team Providers Care White Sourer Name Role Phone Jose Luis Rodriguez Primary Care Provider [phone] Joe Barksdale DO Primary Care Provider [phone] Source Comments In the event this information is protected by the Federal Confidentiality of Alcohol and Drug AbusePatient Records regulations: The Federal rules restrict any use of the information to criminally investigate or prosecute any alcohol or drug abuse patient.[facility] Encounter Details Date Type Department Care Team (Late st Contact Info) Description 08/02/2016 Patient Msg Medical Records [address] [place] [address] Provider, [facility] Important notice: provider change for [...] on filedocumented in this encounter Care Teams White Sourer Relationship Specialty Start Date End Date Jose Luis Rodriguez [address] [place] [address] PCP - General 03/16/08 07/31/18 Joe Barksdale DO [address] [place] [address] PCP - General Family Medicine 08/01/18 documented as of this encounter
--- OUTSIDE RECORDS SUMMARY | 2025-02-24 13:20 | XMS_ITS | Encounter Summary ---
Author Organization [facility] Address [address] [place] [id number] Care Team Providers Care Folder Operator Name Role Phone Joe Barksdale DO Primary Care Provider [phone] Source Comments In the event this information is protected by the Federal Confidentiality of Alcohol and Drug AbusePatient Records regulations: The Federal rules restrict any use of the information to criminally investigate or prosecute any alcohol or drug abuse patient.[facility] Encounter Details Date Type Department Care Team (Late st Contact Info) Description 06/23/2021 Patient Msg Endocrinology [address] [place] [phone] Neto Ansari MD [address] [place] [phone] results. Social History Tobacco Use Types Packs/Day [...] N ot on file 04/26/2020 Data from: https://www.neighborhoodatlas.[facility].edu/. Last address used for calculation Not on [...] on filedocumented in this encounter Care Teams Folder Operator Relationship Specialty Start Date End Date Joe Barksdale DO [address] [place] [address] PCP - General Family Medicine 08/01/18 documented as of this encounter
--- OUTSIDE RECORDS SUMMARY | 2025-02-24 13:20 | XMS_ITS | Encounter Summary ---
Author Organization [facility] Address [address] [place] [address] Care Team Providers Care Director Of Informatics Name Role Phone Joe Barksdale MD Primary Care Provider [phone] Encounter Details Date Type Department Care Team (Late st Contact Info) Description 10/04/2022 Abstract [facility] 112 [facility] [address] [place] [address] Livia Kirk, RN 112 [facility] [address] [place] [address] Social History Tobacco Use Types Packs/Day Years [...] on filedocumented in this encounter Care Teams Director Of Informatics Relationship Specialty Start Date End Date Joe Barksdale MD [address] [place] [address] PCP - General Family Medicine 10/18/22 documented as of this encounter
--- OUTSIDE RECORDS SUMMARY | 2025-02-24 13:20 | XMS_ITS | Encounter Summary ---
Author Organization [facility] Address [address] [place] [address] Care Team Providers Care Drive In Waiter/Waitress Name Role Phone Jose Luis Rodriguez Primary Care Provider [phone] Joe Barksdale DO Primary Care Provider [phone] Source Comments In the event this information is protected by the Federal Confidentiality of Alcohol and Drug AbusePatient Records regulations: The Federal rules restrict any use of the information to criminally investigate or prosecute any alcohol or drug abuse patient.[facility] Encounter Details Date Type Department Care Team (Late st Contact Info) Description 11/13/2016 Patient Msg Functional Medicine [address] [address] [place] [address] [place] [address] Appointment Cancellation Request Social History Tobacco Use [...] on filedocumented in this encounter Care Teams Drive In Waiter/Waitress Relationship Specialty Start Date End Date Jennifer Jose Luis [address]div[address] [place] [address] PCP - General 03/16/08 07/31/18 Joe Barksdale DO [address] [place] [address] PCP - General Family Medicine 08/01/18 documented as of this encounter
--- OUTSIDE RECORDS SUMMARY | 2025-02-24 13:20 | XMS_ITS | Encounter Summary ---
Author Organization [facility] Address [address] [place] [address] Care Team Providers Care Developmental Writing Instructor Name Role Phone Joe Barksdale MD Primary Care Provider [phone] Encounter Details Date Type Department Care Team (Late st Contact Info) Description 08/14/2022 Abstract [facility] [address] [place] [address] Svetlana Allison, [facility] [address] [place] [address] Social History Tobacco Use Types Packs/Day Years [...] on filedocumented in this encounter Care Teams Developmental Writing Instructor Relationship Specialty Start Date End Date Joe Barksdale MD [address] [place] [address] PCP - General Family Medicine 10/18/22 documented as of this encounter
--- OUTSIDE RECORDS SUMMARY | 2025-02-24 13:20 | XMS_ITS | Encounter Summary ---
Author Organization [facility] Address [address] [place] [address] Care Team Providers Care Asian Studies Program Chair Name Role Phone Joe Barksdale MD Primary Care Provider [phone] Encounter Details Date Type Department Care Team (Late st Contact Info) Description 10/04/2022 Abstract [facility] [address] [facility] [address] [place] [address] Livia Kirk, RN 112 [facility] [address] [place] [address] Social History Tobacco Use Types Packs/Day Years [...] on filedocumented in this encounter Care Teams Asian Studies Program Chair Relationship Specialty Start Date End Date Joe Barksdale MD [address] [place] [address] PCP - General Family Medicine 10/18/22 documented as of this encounter
--- OUTSIDE RECORDS SUMMARY | 2025-02-24 13:20 | XMS_ITS | Clinical Summary ---
Author Organization [facility] Address [address] [place] [address] Phone Care Team Providers Care Underwriting Analyst Name Role Phone Joe Barksdale DO Primary Care Provider [phone] Social History Tobacco Use Types Packs/Day Years [...] Vaccines (1 of 2) 09/10/2017 COVID-19 Vaccine (1 - 2023-2 5 season) 2025 Influenza Vaccine (#1) 2025 HIB Vaccines Aged [...] age to complete this topic Care Teams Underwriting Analyst Relationship Specialty Start Date End Date Joe Barksdale DO PCP - General 09/27/22
--- OUTSIDE RECORDS SUMMARY | 2025-02-24 13:35 | XMS_ITS | CCD ---
Author Organization [facility] Care Team Providers Care Resource Development Manager Name Role Phone JEFF OJN Primary Care Unavailable ELLE DODD Referring Unavailable Jeff Jon DO Primary Care Provider [phone] Carlos Terrazas Unavailable Jeff Jon Unavailable Vandana Joradn Unavailable Carl Valdivia Unavailable Lorena Rico Unavailable [...] JEROD ., LAURENCE Attending Unavailable JEROD ., LAUERNCE Admitting Unavailable WEST, DR JEFF Colvin Consulting [...] Jeff Coleman Primary Care Unavailab le DeVaul LOOM INSPECTOR-AND DRYING SUPERVISOR COOKING CASING, Cass Zavaleta Attending Unav ailable Dontrell BETH, Jeff Coleman Primary Care Unavailab le DeVaul LOOM INSPECTOR-AND DRYING SUPERVISOR COOKING CASING, Cass Zavaleta Attending Unav ailable Dontrell BETH, Jeff Coleman Primary Care Unavailab le DeVaul LOOM INSPECTOR-AND DRYING SUPERVISOR COOKING CASING, Cass Zavaleta Attending Unav ailable Jeff Jon DO Primary Care Unavailab Librado Lugo MD Attending Unavaila ble Jeff Jon DO Primary Care Provider Ly DOCarol Attending Provider Jeff Jon DO Primary Care Provider [phone] Jeff Jon DO Attending Provider [phone] Jacky Lorena BAEZA Attending Provider Jeff Jon Admitting Unavailable Jeff Jon Attending Unavailable Stephanie, Logan S Admitting Unavailable Stephanie, Logan S Attending Unavailable Jeff Jon Primary Care Unavailable Ly, Carol L Admitting Unavailable Ly, Carol Rogers Attending Unavailable Jeff Jon Primary Care Unavailable Ly, Carol L Admitting Unavailable Ly, Carol Rogers Attending Unavailable Jeff Jon Primary Care Unavailable Jeff Jon DO Primary Care Provider Jeff Jon DO Attending Provider Jacky Lorena BAEZA Attending Provider ELTAIVAN, EHAB Admitting Unavailable WON BLANTON Attending Unavailable NEO ESPINO Attending Unavailable MARIA INESUKANEO DESAI Attending Unavailable NEO ESPINO Attending Unavailable ELTAIVAN, EHAB Referring Unavailable Allergies Allergy Classification Reported Allergen(s) Allergy Type Date of Onset Reaction(s) Facility Macrolides (antibiotic) (1 source) Clarithromycin Drug Allergy 12-19-19 24 diarrhea [facility] Quinolones (antibiotic) (2 sources) levoFLOXacin Drug Allergy 12-19-19 24 Abdominal Pain, itches/pain, Abdominal Pain [facility] (6 sources) Cefuroxime; Translations: [CEFUROXIME AXETIL] Drug Allergy 05-16-20 07 Itching [facility] (20 sources) Clarithromycin; Translations: [CLARITHROMYCIN] Drug Allergy 05-16-20 07 Itching [facility] (15 sources) Fluconazole; Translations: [FLUCONAZOLE] Drug Allergy 06-16-19 22 Itching [facility] (20 sources) gatifloxacin; Translations: [GATIFLOXACIN] Drug Allergy 05-16-20 07 Itching [facility] (20 sources) levoFLOXacin; Translations: [LEVOFLOXACIN] Drug Allergy 05-16-20 07 Itching [facility] (17 sources) LORazepam; Translations: [LORAZEPAM] Drug Allergy 06-16-19 Other: See Comments [facility] (20 sources) metFORMIN; Translations: [METFORMIN] Drug Allergy 06-16-19 Other: See Comments [facility] (20 sources) Fluconazole Drug Allergy itching [employer] Other (20 sources) gatifloxacin; Translations: [Tequin] Drug Allergy 05-17-20 13 Unknown [facility] (20 sources) levoFLOXacin; Translations: [Levaquin] Drug Allergy 05-17-20 13 itches/pain [facility] (20 sources) LORazepam Drug Allergy made wired /unable to sleep [facility] [employer] Other (3 sources) metFORMIN Drug Allergy headaches [facility] [employer] Other (2 sources) Clarithromycin; Translations: [Biaxin] Drug Allergy 09-05-19 16 [facility] (1 source) Pentamidine Drug Allergy [facility] (2 sources) Percocet Tablets; Translations: [Percocet Tablets] Propensity to adverse reactions to drug nausea and vomiting [facility] (2 sources) Vicodin Tablets; Translations: [Vicodin Tablets] Propensity to adverse reactions to drug nausea and vomiting [facility] (1 source) Clarithromycin Drug Allergy 11-28-19 [facility] (1 source) gatifloxacin Drug Allergy 11-28-19 [facility] (1 source) levoFLOXacin Drug Allergy 11-28-19 [facility] (1 source) Cefuroxime; Translations: [CEFUROXIME] Drug Allergy 05-16-20 [facility] Medications Current Medications Medication Drug [...] every 12 hrs for 90 days Active [id number] 200 actuat albuterol 0.09 mg/actuat metered dose [...] day(s), # 30 tab(s), Refills(s) 2, Pharmacy: [facility]/pharmacy #[id number], 166, cm, 05/10/23 14:36:00 EST, [...] 12:00am Complies with drug therapy estrogens, conjugated (jail) 0.45 mg oral tablet [...] in each nostril Nasally Once a day 23 Dec, 2019 Active Start: 05-12-2019 Fluticasone Propion-Salmeterol (20 sources) [...] 15 mg tablet Disco ntinued [address] [id number] January 14, 2024 10:16am June 13, 2024 1:23pm TAKE 1 TABLET DAILY Start: 01-14-2024 End: 06-13-2024 Meloxicam 15 mg tablet Disco ntinued [address] [id number] January 14, 2024 10:16am June 13, 2024 1:23pm TAKE 1 TABLET DAILY Start: 01-14-2024 End: 06-13-2024 Meloxicam 15 mg tablet Disco ntinued [address] [id number] January 14, 2024 9:16am June 13, 2024 12:23pm TAKE 1 TABLET DAILY Start: 01-14-2024 Meloxicam 15 m g tablet Active 0 [address] [id number] January 14, 2024 9:16am TAKE 1 TABLET DAILY Start: 01-14-2024 Meloxicam Acti ve 0 [address] [id number] January 14, 2024 9:16am TAKE 1 TABLET DAILY Start: 01-14-2024 Meloxicam Acti ve 0 [address] [id number] January 14, 2024 10:16am TAKE 1 TABLET [...] release 24 hr Discontinued 0 .ROUTE .COMPLEX [facility] April 22, 2024 9:13am June 13, 2024 1:23pm TAKE 2 TABLETS TWICE A DAY WITH MEALS Start: 01-14-2024 End: 04-22-2024 Metformin 500 mg tablet exte nded release 24 hr Discontinued 0 .ROUTE .COMPLEX [facility] January 14, 2024 10:41am April 22, 2024 9:14am TAKE 2 TABLETS TWICE A DAY WITH MEALS Start: 01-14-2024 End: 04-22-2024 Metformin 500 mg tablet exte nded release 24 hr Discontinued 0 .ROUTE .COMPLEX [facility] January 14, 2024 9:41am April 22, 2024 8:14am TAKE 2 TABLETS TWICE A DAY WITH MEALS Start: 01-14-2024 Metformin Acti ve 0 .ROUTE .COMPLEX [facility] January 14, 2024 9:41am TAKE 2 TABLETS TWICE A DAY WITH MEALS Start: 01-14-2024 Metformin Acti ve 0 .ROUTE .[facility]PLEX [facility] January 14, 2024 10:41am TAKE 2 TABLETS TWICE A DAY WITH MEALS Start: 01-14-2024 End: 01-14-2024 take 2 tablets by mouth twice daily at mealtime Metformin 500 mg tablet extended release 24 hr Discontinued 500 MG PO .[facility] January 14, 2024 10:36am January 14, 2024 [...] Comment on above: Take 2 tablets by [facility] twice daily. mometasone furoate 0.05 mg/actuat [...] mometasone fur oate(NASONEX 50 MCG/ACTUATION SPRAY) [place] twice in each nostril once daily. 0 06/26/2008 Active Comment on above: [place] twice in each nostril once daily. ProAir [...] 25 MCG (1000 UT) (13 sources) Start: 1 take 25 ug by mouth once daily [...] Take one(1) capsule daily. 84 hr estradiol 0.59959 mg/hr transdermal system (20 sources) Estrogen Start: [...] / neomycin 3.5 mg/ml / polymyxin b 07357 unt/ml otic solution (12 sources) Aminoglycoside Antibacterial, Polymyxin-class Antibacterial, Corticosteroid Start: 08-11-2022 Dixjkugw-Jhqkhyfzk-HS 3.5-80919-0 4 drops into affected ear Otic Three times a day for 7 days Jul, Not-Taking Ketorolac (20 sources) Nonsteroidal Anti-inflammatory Drug, Cyclooxygenase Inhibitor Start: 08-11-2016 Toradol per 15 mg Jul, 2 cc lisinopril 10 mg oral tablet [...] 10 mg by mouth daily at bedtime. Fscijgdv-Fvd-Ehayjhu Gluconate (Centrum) 9 mg iron/15 mL Liquid (20 sources) Start: 09-14-2017 End: 08-28-2023 take 2 tablets by mouth once daily Mhgbbpgf-Ens-Csajtcv Gluconate (Centrum) 9 mg iron/15 mL Liquid Discontinued 2 TAB PO Daily September 13, 2017 11:00pm August 28, 2023 10:13am Start: 09-14-2017 End: 08-28-2023 take 2 tablets by mouth once daily Glaktqgl-Lyo-Aomgokr Gluconate (Centrum) 9 mg iron/15 mL Liquid [...] mg tablet Discontinued 0 PO .COMPLEX 20 October 24, 2024 12:00am November 27, 2024 [...] two weeks increase to two Vitamin D [place] [employer] (3 sources) Start: 03-30-2016 End: 10-13-2021 take 1 capsule by mouth once daily at mealtime Vitamin D [place] [employer]) Take 1 capsule by mouth daily with food. 0 03/30/2016 10/13/2021 Discontinued (Course of therapy completed) Start: 03-30-2016 take 1 capsule by mo uth once daily at mealtime Vitamin D [place] [employer]) Take 1 capsule by mouth daily with [...] asthma, uncomplicated] Onset: 1 Resolved: 2 Chronic Congestive heart failure; nonhypertensive (2 sources) Chronic diastolic (congestive) heart failure; Translations: [Chronic diastolic (congestive) heart failure] Onset: 5 Chronic Diabetes mellitus with complications (5 sources) [...] source) Noninfective gastroenteritis and colitis, unspecified Episodic Nonspecific chest pain (2 sources) Other chest pain; Translations: [Other chest pain] Onset: 5 Episodic Nutritional deficiencies (20 sources) Vitamin D deficiency; Translations: [Vitamin D deficiency, unspecified] Onset: 3 Chronic Nutritional deficiencies (1 source) Dietary selenium deficiency; Translations: [DIETARY SELENIUM DEFICIENCY] Onset: 3 Episodic Osteoarthritis (1 source) Osteoarthritis 05-10-2023 Chronic Other aftercare (20 sources) Long-term current use of systemic steroid; Translations: [terminal 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 supervisor (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) use of systemic steroids] Episodic Other aftercare (9 sources) Other shelter (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; Translations: [Long-term (current) use of other medications] Onset: 1 Resolved: 2 Episodic Other aftercare (1 source) 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; Translations: [YOUTH SUPPORT WORKER USE ORAL HYPOGLYCEMIC DX] Onset: 3 Episodic Other aftercare (20 sources) Long-term current use of drug therapy; Translations: [Other assistant terminal 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] 08-28-2023 Episodic Other circulatory [...] Resolved: 2 Episodic Other lower respiratory disease (3 sources) Shortness of breath; Translations: [SHORTNESS OF BREATH] Onset: 3 Episodic Other lower respiratory disease (9 sources) [...] Chronic Comment on above: CT chest 08/05/24 don e at [facility] Other screening for suspected conditions (not [...] Diarrhea, unspecified; Translations: [Diarrhea] Onset: 07-30-2024 Episodic Unclassified (1 source) Lumbar pain M54.50 Onset: 07-04-2021 Resolved: 07-04-2021 Unclassified (1 source) Cough R05.9 Onset: 10-20-2021 Resolved: 10-20-2021 Unclassified (1 source) COUGH, UNSPECIFIED; Translations: [COUGH, UNSPECIFIED] Onset: 11-29-2021 Results Test Name Value Interpretation Reference Range Facility 36on 02-10-2025 36 Pt was seen 02/09/25 [facility] Follow-Upon 02-09-2025 Follow-Up [id number] Canelo Pathak 1965 F Date Provider Department Center 02/09/2025 NEO MORENO NUBIA [facility] Family History Problem Relation Age of Onset Pulmonary embolism Mother Kidney disease Father Heart attack Father Family Status - Relation Status Age at Mother Father Brother Alive Level of Service:73241 MS OFFICE/OUTPATIENT ESTABLISHED MOD MDM 30 MIN [facility] 36on 01-15-2025 36 Patient called back and I advised her she could stop Imdur and metformin (per PCP). She was very happy and verbalized understanding. [facility] 36 LM for patient to return my call. [facility] 36on 01-12-2025 36 Patient called s/p cath on 01/08. You started her on Farxiga. She says a month or so ago her PCP switched her from metformin to Jardiance. She did not start Jardiance yet, as she was waiting until she finished metformin. I advised her not to start Jardiance since she's now on Farxiga. She wanted to know if Farxiga was in addition to metformin (since PCP originally was replacing it). Also, she says isosorbide makes her feel terrible after she takes it. She gets very lightheaded and nauseous. Any recommendations? Thanks! [facility] Telephoneon 01-12-2025 Telephone [id number] LawsonCanelo Rogers 1965 F Date Provider Department [facility] Family History Problem Relation Age of Onset Pulmonary embolism Mother Kidney disease Father Heart attack Father Family Status - Relation Status Age at Mother Father Brother Alive [facility] ANEEmerson 01-08-2025 ANES Attestation signed by Won Blanton MD at 01/08/2025 8:20 AM Won Blanton MD, MPH, [facility], [facility], [facility] Interventional Cardiology Pager Email: [email or web address] Patient: Canelo Pathak Pre-sedation Evaluation: Moderate sedation History of Present Illness: 58-year-old woman with prior medical history of with prior medical history of hypertension, asthma, diabetes and GERD. Lexiscan stress test showed small area of ischemia at the mid anterior segment Medical History[1] Principle problems: Patient Active Problem List Diagnosis Date Noted Acid reflux 10/11/2023 Anxiety 10/11/2023 Asthma 10/11/2023 Elevated blood pressure reading 10/11/2023 Hepatitis 10/11/2023 Hyperlipidemia 10/11/2023 Hypertension 10/11/2023 Hypothyroidism 10/11/2023 Osteoarthritis 10/11/2023 Other shelter (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 10/11/2023 Palpitation 10/11/2023 Polyarthralgia 10/11/2023 Seasonal allergies 10/11/2023 UTI (urinary tract infection) 10/11/2023 Vitamin D deficiency 10/11/2023 Diabetes ([facility]) 09/24/2023 Asymmetric SNHL (sensorineural hearing loss) 09/24/2023 Right-sided tinnitus 09/24/2023 Cholesteatoma of attic of ear, 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 Pulsatile tinnitus of right ear 08/21/2023 Abnormal taste in mouth 10/04/2022 Allergic rhinitis due to animal hair and dander 10/04/2022 Gastroesophageal reflux disease with esophagitis 10/04/2022 Type 2 diabetes mellitus with hyperglycemia, without long-term current use of insulin ([facility]) 10/11/2021 Binge eating disorder 09/20/2015 BMI 50.0-59.9, adult ([facility]) 09/20/2015 CFS (chronic fatigue syndrome) 09/20/2015 Fibromyalgia 09/20/2015 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 Recent sedation/surgery (24 hours) No Review of Systems: Please check all that apply: Asthma test completed prior to procedure on any menstruating female: none NPO guidelines met: Yes Physical Exam Airway Mallampati: III Cardiovascular Rhythm: regular Rate: normal (+) peripheral edema (-) murmur Dental Pulmonary (+) wheezes (-) rhonchi, decreased breath sounds Plan ASA 3 Moderate Consent for blood products obtained. Risks, benefits, and alternatives to procedure discussed with patient in detail who expressed understanding and agreed to proceed. Raiza Rocha PGY-4 Surfacer Operator [facility] [1] Past Medical History: Diagnosis Date Abnormal ECG Asthma Diabetes mellitus (CMS/HCC) GERD (gastroesophageal reflux disease) Hyperlipidemia Hypertension Hypothyroidism [2] Allergies Allergen Reactions Gatifloxacin Itching Other Reaction(s): Unknown nerve difficulty [3] Medications Prior to Admission Medication Sig Dispense Refill Last Dose/Taking albuterol 90 mcg/actuation inhaler Inhale 1 puff every 4 (four) hours if needed. Past Week aspirin 81 mg chewable tablet Chew 1 tablet (81 mg) in the morning. 90 tablet 3 01/08/2025 Morning atorvastatin (Lipitor) 20 mg tablet Take 2 tablets (40 mg) by mouth in the evening. 180 tablet 3 01/08/2025 Morning cetirizine (ZyrTEC) 10 mg tablet Take 10 mg by mouth in the morning. 01/08/2025 Morning cholecalciferol (Vitamin D-3) 50 MCG (2000 UT) tablet Take 2,000 Units by mouth in the morning. 01/08/2025 Morning cyclobenzaprine (Flexeril) 10 mg tablet Take 10 mg by mouth if needed in the morning and at bedtime. (Patient taking differently: Take 10 mg by mouth in the morning.) 01/08/2025 Morning dilTIAZem CD (Cardizem CD) 240 mg 24 hr capsule Take 1 capsule (240 mg) by mouth in the morning. 90 capsule 3 01/08/2025 Morning esomeprazole (NexIUM) [address] capsule Take 40 mg by mouth before breakfast. 01/08/2025 Morning isosorbide mononitrate ER (Imdur) 60 mg 24 hr tablet Take 1 tablet (60 mg) by mouth in the morning. Do not crush or chew. 90 tablet 3 01/08/2025 Morning metFORMIN XR (Glucophage-XR) 500 mg 24 hr tablet Take 1,000 mg by mouth daily with evening meal. 01/07/2025 Evening montelukast (Singulair) 10 mg tablet Take 10 mg by mouth at bedtime. 01/07/2025 Evening colestipol (Colestid) 1 gram tablet Take 1 g by mouth in the morning. (Patient not taking: Reported on 01/05/2025) estrogens, conjugated, (Premarin) 0.45 mg tablet Take 0.45 mg by mouth in the morning. (Patient not taking: Reported on 01/05/2025) fluticasone propion-salmeteroL (Advair Diskus) 250-50 mcg/dose diskus inhaler Inhale 1 puff two times daily. glimepiri (more content not included)... [facility] Attestation signed by Won Blanton MD at 01/08/2025 8:19 AM By using the attestations below, the signing clinician agrees that I have read and verify that the documentation has been personally reviewed by me and ensure that the documentation accurately reflects the encounter. GC: I personally saw this patient on the day of the encounter, performed the muniz portion(s) of the service and participated in the management and confirm the resident's documentation. Please note there may be an additional personal documentation from me. Additional Comments: Won Blanton MD, MPH, FACC, [facility], [facility] Interventional Cardiology Pager Email: [email or web address] H&P reviewed. The patient was examined and there are no changes to the H&P. Will proceed with coronary angiography and right heart catheterization for further evaluation of abnormal stress test and shortness of breath. Consent for blood products obtained. Risks, benefits, and alternatives to procedure discussed with patient in detail who expressed understanding and agreed to proceed. [facility] NURSNOTEon 01-08-2025 NURSNOTE RN educated pt on d/c instructions. This included: site care, limited physical activity, resume normal diet, future appointments, medications, and moderate sedation instructions. RN educated pt on when to notify physician and when to go to the hospital. RN provided pt with arm sling and educated pt on importance of not using arm for 24 hours for radial sites. RN encouraged pt to voice any questions or concerns, and answered any questions or concerns if pt verbalized. Pt was wheeled off of unit with all of belongings. [facility] Orders Onlyon 01-08-2025 Orders Only [id number] Canelo Pathak 1965 F Date Provider Department Center 01/08/2025 DIA ARCINIEGA Lilli [facility] Family History Problem Relation Age of Onset Pulmonary embolism Mother Kidney disease Father Heart attack Father Family Status - Relation Status Age at Mother Father Brother Alive [facility] HPon 01-05-2025 [facility] Cardiology - [facility] Subjective Canelo Pathak is a [...] Asymmetric SNHL (sensorineural hearing loss) Osteoarthritis Other shelter (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 Palpitation Polyarthralgia Pulsatile tinnitus of right ear Right-sided tinnitus Seasonal allergies Type 2 diabetes mellitus with hyperglycemia, without long-term current use of insulin ([facility]) UTI (urinary tract infection) Vitamin D deficiency [...] and GERD who was admitted to the [facility] on 08/05/2024 with chest pressure and [...] Positive for dizziness and headaches (chronic headaches). Psychiatric/Behavior al: The patient is nervous/anxious. Objective Visit Vitals BP (!) 155/96 (BP Location: Left wrist, Patient Position: Sitting) Pulse 85 Ht 1.651 m (5' 5 ) Wt 127 kg (279 lb) SpO2 99% BMI 46.43 kg/m??? Smoking Status Never BSA 2.41 m??? Physical Exam Constitutional: Appearance: She is well-developed. She is obese. She is not ill-appearing. (more content not included)... [facility] Office Visiton 01-05-2025 Follow-up visit [id number] Canelo Pathak 1965 F Date Provider Department Center 01/05/2025 Nahed-NEO ESPINO NUBIA Lara Family History Problem Relation Age of Onset Pulmonary embolism Mother Kidney disease Father Heart attack Father Family Status - Relation Status Age at Mother Father Brother Alive Level of Service:20206 MS OFFICE/OUTPATIENT ESTABLISHED HIGH MDM 40 MIN [facility] Orders Onlyon 01-05-2025 Orders Only [id number] Canelo Pathak 1965 F Date Provider Department Center 01/05/2025 [id number], HISTORICAL NUBIA Lara Family History Problem Relation Age of Onset Pulmonary embolism Mother Kidney disease Father Heart attack Father Family Status - Relation Status Age at Mother Father Brother Alive [facility] Orders Onlyon 12-29-2024 Orders Only [id number] Canelo Pathak 1965 F Date Provider Department [place] 12/29/2024 [id number], HISTORICAL NUBIA Saman Marco Family History Problem Relation Age of Onset Pulmonary embolism Mother Kidney disease Father Heart attack Father Family Status - Relation Status Age at Mother Father Brother Alive [facility] Basophils Auto (Bld) [#/Vol] Ordered By: Jeff Jon on 11-26-2024 Basophils (Bld) [#/Vol] 0.1 10 3/uL 0.0-0.1 [facility] Basophils/100 WBC Auto (Bld) Ordered By: Jeff Jon on 11-26-2024 Basophils/100 WBC (Bld) 0.7 % 0.2-2.0 F [facility] Eosinophils/100 WBC Auto (Bl d)Ordered By: Jeff Jon on 11-26-2024 Eosinophils/100 WBC (Bld) 4.6 % 0.9-7.0 [facility] Erythrocyte distribution wid th Auto (RBC) [Ratio]Ordered By: Jeff Jon on 11-26-2024 Erythrocyte distribution width (RBC) [Ratio] 12.0 % 11.0-15.0 [facility] Glucose mean value [Mass/vol ume] in Blood Estimated from glycated hemoglobinOrdered By: Jeff Jon on 11-26-2024 Average glucose Estimated from glycated hemoglobin (Bld) [Mass/Vol] 186 mg/dL [facility] Hematocrit Auto (Bld) [Volum e fraction]Ordered By: Jeff Jon on 11-26-2024 Hematocrit (Bld) [Volume fraction] 40.2 % 36.0-48.0 [facility] Hemoglobin A1c percentageOrd ered By: Jeff Jon on 11-26-2024 HbA1c (Bld) [Mass fraction] 8.1 % High 4.5-6.2 [facility] Comment on above: ADA RECOMMENDED LIMI T 4.0 - 6.0ADA THERAPEUTIC TARGET < 7.0ACTION SUGGESTED> 7.0 Hemoglobin [Mass/volume] in BloodOrdered By: Jeff Jon on 11-26-2024 Hemoglobin (Bld) [Mass/Vol] 13.4 g/dL 12.0-16.0 [facility] Laboratory - Chemistry and C hemistry - challengeOrdered By: Jeff Jon on 11-26-2024 Bilirubin Ql (U) Negative NEGATIVE [facility] Glucose (U) [Mass/Vol] Negative NEGATIVE [facility] Ketones Ql (U) Negative NEGATIVE [facility] pH (U) 6.0 [pH] 5.0-9.0 [facility] Specific gravity (U) [Rel density] >=1.030 Abnormal 1.005-1.025 [facility] Urobilinogen Qn (U) 0.2 {David'U}/dL 0.2-1.0 [facility] - Hematology and Cell countsOrdered By: Jeff Jon on 11-26-2024 Immature granulocytes/100 WBC (Bld) 0.6 % High 0.0-0.5 [facility] - Specimen inform ationOrdered By: Jeff Jon on 11-26-2024 Appearance (U) CLEAR CLEAR [facility] Color (U) LT. YELLOW YELLOW [facility] - UrinalysisOrder ed By: Jeff Jon on 11-26-2024 Leukocyte esterase Test strip Ql (U) Negative NEGATIVE [facility] Nitrite Ql (U) Negative NEGATIVE [facility] Protein Ql (U) Negative NEG/TRACE [facility] Leukocytes [#/volume] correc reilly for nucleated erythrocytes in Blood by Automated counOrdered By: Jeff Jon on 11-26-2024 WBC corrected for nucl RBC Auto (Bld) [#/Vol] 7.2 10 3/uL 4.0-11.0 [facility] Lymphocytes Auto (Bld) [#/Vo l]Ordered By: Jeff Jon on 11-26-2024 Lymphocytes (Bld) [#/Vol] 1.9 10 3/uL 1.2-3.8 [facility] Lymphocytes/100 WBC Auto (Bl d)Ordered By: Jeff Jon on 11-26-2024 Lymphocytes/100 WBC (Bld) 25.8 % 20.5-60.0 [facility] MCH Auto (RBC) [Entitic mass ]Ordered By: Jeff Jon on 11-26-2024 MCH (RBC) [Entitic mass] 31.0 pg 26.7-34.0 [facility] MCHC Auto (RBC) [Mass/Vol]Or dered By: Jeff Jon on 11-26-2024 MCHC (RBC) [Mass/Vol] 33.3 g/dL 29.9-35.2 [facility] MCV Auto (RBC) [Entitic vol] Ordered By: Jeff Jon on 11-26-2024 MCV (RBC) [Entitic vol] 93.1 fL 81.0-99.0 F [facility] Monocytes Auto (Bld) [#/Vol] Ordered By: Jeff Jon on 11-26-2024 Monocytes (Bld) [#/Vol] 0.6 10 3/uL 0.3-0.8 [facility] Monocytes/100 WBC Auto (Bld) Ordered By: Jeff Jon on 11-26-2024 Monocytes/100 WBC (Bld) 7.7 % 1.7-12.0 F [facility] Neutrophils Auto (Bld) [#/Vo l]Ordered By: Jeff Jon on 11-26-2024 Neutrophils (Bld) [#/Vol] 4.4 10 3/uL 1.4-6.5 [facility] Neutrophils/100 WBC Auto (Bl d)Ordered By: Jeff Jon on 11-26-2024 Neutrophils/100 WBC (Bld) 60.6 % 43.0-75.0 [facility] No Panel InformationOrdered By: Jeff Jon on 11-26-2024 Eosinophils # (Auto) 0.3 10 3/uL 0.0-0.7 [facility] Immature Granulocyte # (Auto) 0.04 10 3/uL High 0.00-0.03 [facility] Urine Occult Blood Negative NEGATIVE [facility] Platelet mean volume Auto (B ld) [Entitic vol]Ordered By: Jeff Jon on 11-26-2024 Platelet mean volume (Bld) [Entitic vol] 9.6 fL 9.5-13.5 [facility] Platelets Auto (Bld) [#/Vol] Ordered By: Jeff Jon on 11-26-2024 Platelets (Bld) [#/Vol] 306 10 3/uL 150-450 [facility] RBC Auto (Bld) [#/Vol]Ordere d By: Jeff Jon on 11-26-2024 RBC (Bld) [#/Vol] 4.32 10 6/uL 4.20-5.40 [facility] Urine Cultureon 11-26-2024 Bacteria identified Cx Nom (U) 75,000 colonies/ml mixed bacterial skin contaminants 2 Days PERFORMED BY: [place] [address] PATHOLOGIST RN INTAKE ASAD William [facility] Comment on above: Performed By: #### C UU #### [address] Cholesterol in LDL Calc [Mas s/Vol]Ordered By: Jeff Jon on 11-20-2024 Cholesterol in LDL [Mass/Vol] 107.0 mg/dL [facility] Comment on above: <100 mg/dl [id number] 0-129 mg/dl NEAR OR ABOVE [id number] mg/dl BORDERLINE [id number] mg/dl HIGH>190 mg/dl VERY HIGH Cholesterol in VLDL Calc [Ma ss/Vol]Ordered By: Jeff Jon on 11-20-2024 Cholesterol in VLDL [Mass/Vol] 18.2 mg/dL [facility] Estimated glomerular filtrat ion rate (GFR) non- AmericanOrdered By: Jeff Jon on 11-20-2024 GFR/1.73 sq M.predicted among non-blacks MDRD (S/P/Bld) [Vol rate/Area] mL/min/{1.73_m2} >=60 mL/min/1.73m 2 [facility] Globulin Calc (S) [Mass/Vol] Ordered By: Jeff Jon on 11-20-2024 Globulin (S) [Mass/Vol] 3.3 g/dL F [facility] Laboratory - Chemistry and C hemistry - challengeOrdered By: Jeff Jon on 11-20-2024 Albumin [Mass/Vol] 3.4 g/dL 3.4-5.0 [facility] ALP [Catalytic activity/Vol] 82 U/L 46-116 [facility] ALT [Catalytic activity/Vol] 33 U/L 14-59 [facility] AST [Catalytic activity/Vol] 20 U/L 15-37 [facility] Bilirubin [Mass/Vol] 0.4 mg/dL 0.2-1.0 [facility] Calcium [Mass/Vol] 9.3 mg/dL 8.5-10.1 [facility] Chloride [Moles/Vol] 104 mmol/L 98-107 [facility] Cholesterol [Mass/Vol] 207 mg/dL High <=200 [facility] Cholesterol in HDL [Mass/Vol] 82 mg/dL High 40-60 [facility] Comment on above: > or =60 mg/dl - LOW CARDIOVASCULAR RISK<40 mg/dl - HIGH CARDIOVASCULAR RISK CO2 [Moles/Vol] 27.2 mmol/L 21.0-32.0 [facility] Creatinine [Mass/Vol] 0.68 mg/dL 0.55-1.02 [facility] Free T4 [Mass/Vol] 1.68 ng/dL High 0.76-1.46 [facility] GFR/1.73 sq M.predicted MDRD (S/P/Bld) [Vol rate/Area] mL/min/{1.73_m2} >=60 mL/min/1.73m 2 [facility] Glucose [Mass/Vol] 163 mg/dL High 74-106 [facility] Potassium [Moles/Vol] 4.5 mmol/L 3.5-5.1 [facility] Protein [Mass/Vol] 6.7 g/dL 6.4-8.2 [facility] Sodium [Moles/Vol] 141 mmol/L 136-145 [facility] Triglyceride [Mass/Vol] 91 mg/dL <=150 F [facility] TSH Qn 0.712 m[IU]/L 0.358-3.740 [facility] Urea nitrogen [Mass/Vol] 15.0 mg/dL 7.0-18.0 [facility] Urea nitrogen/Creatinine [Mass ratio] 22.1 mg/mg [facility] - Chemistry and C hemistry - challengeOrdered By: Neo Espino on 11-20-2024 Bilirubin.direct [Mass/Vol] 0.1 mg/dL 0.0-0.2 [facility] CK [Catalytic activity/Vol] 29 U/L 26-192 [facility] - Hematology and Cell countsOrdered By: Outside Provider on 11-20-2024 ESR (Bld) [Velocity] 15 mm/h <=30 [facility] No Panel InformationOrdered By: Jeff Jon on 11-20-2024 25-Hydroxy Vitamin D Total 34.8 ng/mL [facility] Comment on above: <20 ng/mL Vit D defi cient20-<30 ng/mL Vit D nvnaxvijnzen23-158 ng/mL Vit D sufficient>100 ng/mL Potential Toxicity Free Triiodothyronine 3.27 pg/mL 2.18-3.98 [facility] No Panel InformationOrdered By: Outside Provider on 11-20-2024 C-Reactive Protein, Quantitative <0.50 mg/dL <=0.50 [facility] Scl-70 (Scleroderma) Antibody <0.2 AI 0.0-0.9 [facility] Comment on above: Performed at: [employer] [address] [id number] Director: Giuseppe Newell PhD, Phone: [phone] Serum nuclear antibody titer Ordered By: Outside Provider on 11-20-2024 Nuclear Ab (S) [Titer] Negative . [facility] Comment on above: Negative <1:80 Borde rline 1:80 Positive >1:80ICAP nomenclature: AC-0For more information about Hep-2 cell patterns useANApatterns.org, the official website for theInternational Consensus on Antinuclear Antibody (KATHY)Patterns (ICAP).Performed at: [employer] [facility] [address] [id number] Director: Giuseppe Newell PhD, Phone: [phone] Serum or plasma albumin/glob ulin mass ratioOrdered By: Jeff Jon on 11-20-2024 Albumin/Globulin [Mass ratio] 1.0 {ratio} [facility] Serum or plasma anion gap de terminationOrdered By: Jeff Jon on 11-20-2024 Anion gap [Moles/Vol] 14.3 mmol/L [facility] Serum or plasma rheumatoid f actor measurement (units/volume)Ordered By: Outside Provider on 11-20-2024 Rheumatoid factor Qn [IU]/mL <14.0 [facility] Comment on above: Performed at: [place] [id number] Director: Giuseppe Newell PhD, Phone: [phone] Serum or plasma total choles terol/high density lipoprotein (HDL) cholesterol mass ratOrdered By: Jeff Jon on 11-20-2024 Cholesterol.total/Haylie sterol in HDL [Mass ratio] 2.5 {ratio} [facility] Comment on above: 3.3 - 4.4 LOW RISK4. 4 - 7.1 AVERAGE RISK7.1 - 11.0 MODERATE RISK>11.0 [facility] Laboratory - Chemistry and C hemistry - challengeon 09-05-2024 Free T4 [Mass/Vol] 2.01 ng/dL High 0.76-1.46 [facility] TSH Qn 0.260 m[IU]/L Low 0.358-3.740 [facility] No Panel Informationon 09-05 Free Triiodothyronine 2.19 pg/mL 2.18-3.98 [facility] Office Visiton 08-25-2024 Follow-up visit [id number] Canelo Pathak 1965 F Date Provider Department Center 08/25/2024 NEO MORENO Family History Problem Relation Age of Onset Pulmonary embolism Mother Kidney disease Father Heart attack Father Family Status - Relation Status Age at Mother Father Brother Alive Level of Service:86695 [place] OFFICE/OUTPATIENT NEW MODERATE MDM 45 MINUTES Normal [facility] Basophils Auto (Bld) [#/Vol] on 08-06-2024 Basophils (Bld) [#/Vol] Automated basoph il count 0.0-0.1 [facility] Basophils/100 WBC Auto (Bld) on 08-06-2024 Basophils/100 WBC (Bld) Automated basophil % 0. 2-2.0 [facility] Cholesterol in LDL Calc [Mas s/Vol]on 08-06-2024 Cholesterol in LDL [Mass/Vol] Cholesterol in LDL [Mass/volume] in Serum or Plasma by calculation [facility] Comment on above: <100 mg/dl [id number] 0-129 mg/dl NEAR OR ABOVE [id number] mg/dl BORDERLINE [id number] mg/dl HIGH>190 mg/dl VERY HIGH Cholesterol in VLDL Calc [Ma ss/Vol]on 08-06-2024 Cholesterol in VLDL [Mass/Vol] Cholesterol in VLDL [Mass/volume] in Serum or Plasma by calculation [facility] Eosinophils/100 WBC Auto (Bl d)on 08-06-2024 Eosinophils/100 WBC (Bld) Automated eosinophil % 0.9-7.0 [facility] Erythrocyte distribution wid th Auto (RBC) [Ratio]on 08-06-2024 Erythrocyte distribution width (RBC) [Ratio] Erythrocyte distribution width [Ratio] by Automated count 11.0-15.0 [facility] Estimated glomerular filtrat ion rate (GFR) non- Americanon 08-06-2024 GFR/1.73 sq M.predicted among non-blacks MDRD (S/P/Bld) [Vol rate/Area] Estimated glomerular filtration rate (GFR) non- >=60 mL/min/1.73m 2 [facility] Globulin Calc (S) [Mass/Vol] on 08-06-2024 Globulin (S) [Mass/Vol] Serum globulin measurement by calculation (mass/volume) [facility] Glucose mean value [Mass/vol ume] in Blood Estimated from glycated hemoglobinon 08-06-2024 Average glucose Estimated from glycated hemoglobin (Bld) [Mass/Vol] Glucose mean value [Mass/volume] in Blood Estimated from glycated hemoglobin [facility] Hematocrit Auto (Bld) [Volum e fraction]on 08-06-2024 Hematocrit (Bld) [Volume fraction] Hematocrit [Volume Fraction] of Blood by Automated count 36.0-48.0 [facility] Hemoglobin A1c percentageon 08-06-2024 HbA1c (Bld) [Mass fraction] Hemoglobin A1c percentage High 4.5-6.2 [facility] Comment on above: ADA RECOMMENDED LIMI T 4.0 - 6.0ADA THERAPEUTIC TARGET < 7.0ACTION SUGGESTED> 7.0 Hemoglobin [Mass/volume] in Bloodon 08-06-2024 Hemoglobin (Bld) [Mass/Vol] Hemoglobin [Mass/volume] in Blood 12.0-16.0 [facility] - Chemistry and C hemistry - challengeon 08-06-2024 Albumin [Mass/Vol] 4.1 g/dL 3.4-5.0 [facility] ALP [Catalytic activity/Vol] 91 U/L 46-116 [facility] ALT [Catalytic activity/Vol] 24 U/L 14-59 [facility] AST [Catalytic activity/Vol] 23 U/L 15-37 [facility] Bilirubin [Mass/Vol] 0.5 mg/dL 0.2-1.0 [facility] Calcium [Mass/Vol] 10.1 mg/dL 8.5-10.1 [facility] Chloride [Moles/Vol] 100 mmol/L 98-107 [facility] Cholesterol [Mass/Vol] 258 mg/dL High <=200 [facility] Cholesterol in HDL [Mass/Vol] 86 mg/dL High 40-60 [facility] Comment on above: > or =60 mg/dl - LOW CARDIOVASCULAR RISK<40 mg/dl - HIGH CARDIOVASCULAR RISK CO2 [Moles/Vol] 27.5 mmol/L 21.0-32.0 [facility] Creatinine [Mass/Vol] 0.91 mg/dL 0.55-1.02 [facility] GFR/1.73 sq M.predicted MDRD (S/P/Bld) [Vol rate/Area] mL/min/{1.73_m2} >=60 mL/min/1.73m 2 [facility] Glucose [Mass/Vol] 125 mg/dL High 74-106 [facility] Magnesium [Mass/Vol] 1.9 mg/dL 1.8-2.4 [facility] Potassium [Moles/Vol] 4.0 mmol/L 3.5-5.1 [facility] Protein [Mass/Vol] 7.7 g/dL 6.4-8.2 [facility] Sodium [Moles/Vol] 140 mmol/L 136-145 [facility] Triglyceride [Mass/Vol] 158 mg/dL High <=150 F [facility] TSH Qn 50.079 m[IU]/L High 0.358-3.740 [facility] Urea nitrogen [Mass/Vol] 18.0 mg/dL 7.0-18.0 [facility] Urea nitrogen/Creatinine [Mass ratio] 19.8 mg/mg [facility] - Hematology and Cell countson 08-06-2024 Immature granulocytes/100 WBC (Bld) 0.5 % 0.0-0.5 [facility] Leukocytes [#/volume] correc reilly for nucleated erythrocytes in Blood by Automated counon 08-06-2024 WBC corrected for nucl RBC Auto (Bld) [#/Vol] Leukocytes [#/volume] corrected for nucleated erythrocytes in Blood by Automated coun 4.0-11.0 [facility] Lymphocytes Auto (Bld) [#/Vo l]on 08-06-2024 Lymphocytes (Bld) [#/Vol] Lymphocytes [#/volume] in Blood by Automated count 1.2-3.8 [facility] Lymphocytes/100 WBC Auto (Bl d)on 08-06-2024 Lymphocytes/100 WBC (Bld) Lymphocytes/100 leukocytes in Blood by Automated count 20.5-60.0 [facility] MCH Auto (RBC) [Entitic mass ]on 08-06-2024 MCH (RBC) [Entitic mass] MCH [Entitic mass] by Automated count 26.7-34.0 [facility] MCHC Auto (RBC) [Mass/Vol]on 08-06-2024 MCHC (RBC) [Mass/Vol] MCHC [Mass/volume] by Automated count 29.9-35.2 [facility] MCV Auto (RBC) [Entitic vol] on 08-06-2024 MCV (RBC) [Entitic vol] MCV [Entitic vol ume] by Automated count 81.0-99.0 [facility] Monocytes Auto (Bld) [#/Vol] on 08-06-2024 Monocytes (Bld) [#/Vol] Automated blood monocyte count 0.3-0.8 [facility] Monocytes/100 WBC Auto (Bld) on 08-06-2024 Monocytes/100 WBC (Bld) Automated monocyte % 1. 7-12.0 [facility] Neutrophils Auto (Bld) [#/Vo l]on 08-06-2024 Neutrophils (Bld) [#/Vol] Neutrophils [#/volume] in Blood by Automated count 1.4-6.5 [facility] Neutrophils/100 WBC Auto (Bl d)on 08-06-2024 Neutrophils/100 WBC (Bld) Automated neutrophil % 43.0-75.0 [facility] No Panel Informationon 08-06 Eosinophils # (Auto) 0.4 10 3/uL 0.0-0.7 [facility] Immature Granulocyte # (Auto) 0.04 10 3/uL High 0.00-0.03 [facility] Troponin I High Sensitivity 6.6 pg/mL 4.0-51.3 [facility] Comment on above: CUT-OFF POINTS HAVE [...] volume] in Blood by Automated count 9.5-13.5 [facility] Platelets Auto (Bld) [#/Vol] on 08-06-2024 Platelets (Bld) [#/Vol] Platelets [#/vol ume] in Blood by Automated count 150-450 [facility] RBC Auto (Bld) [#/Vol]on RBC (Bld) [#/Vol] Erythrocytes [#/volume] in Blood by Automated count 4.20-5.40 [facility] Serum or plasma albumin/glob ulin mass ratioon 08-06-2024 Albumin/Globulin [Mass ratio] Serum or plasma albumin/globulin mass ratio [facility] Serum or plasma anion gap de terminationon 08-06-2024 Anion gap [Moles/Vol] Serum or plasma anion gap determination [facility] Serum or plasma total choles terol/high density lipoprotein (HDL) cholesterol mass constantin 08-06-2024 Cholesterol.total/Haylie sterol in HDL [Mass ratio] Serum or plasma total cholesterol/high density lipoprotein (HDL) cholesterol mass rat [facility] Comment on above: 3.3 - 4.4 LOW RISK4. 4 - 7.1 AVERAGE RISK7.1 - 11.0 MODERATE RISK>11.0 H[facility]K Basophils Auto (Bld) [#/Vol] on 08-05-2024 Basophils (Bld) [#/Vol] Automated basoph il count 0.0-0.1 [facility] Basophils/100 WBC Auto (Bld) on 08-05-2024 Basophils/100 WBC (Bld) Automated basophil % 0. 2-2.0 [facility] Eosinophils/100 WBC Auto (Bl d)on 08-05-2024 Eosinophils/100 WBC (Bld) Automated eosinophil % 0.9-7.0 [facility] Erythrocyte distribution wid th Auto (RBC) [Ratio]on 08-05-2024 Erythrocyte distribution width (RBC) [Ratio] Erythrocyte distribution width [Ratio] by Automated count 11.0-15.0 [facility] Estimated glomerular filtrat ion rate (GFR) non- Americanon 08-05-2024 GFR/1.73 sq M.predicted among non-blacks MDRD (S/P/Bld) [Vol rate/Area] Estimated glomerular filtration rate (GFR) non- >=60 mL/min/1.73m 2 [facility] Globulin Calc (S) [Mass/Vol] on 08-05-2024 Globulin (S) [Mass/Vol] Serum globulin measurement by calculation (mass/volume) [facility] Hematocrit Auto (Bld) [Volum e fraction]on 08-05-2024 Hematocrit (Bld) [Volume fraction] Hematocrit [Volume Fraction] of Blood by Automated count 36.0-48.0 [facility] Hemoglobin [Mass/volume] in Bloodon 08-05-2024 Hemoglobin (Bld) [Mass/Vol] Hemoglobin [Mass/volume] in Blood 12.0-16.0 [facility] INR in Platelet poor plasma by Coagulation assayon 08-05-2024 INR Coag (PPP) [Relative time] INR in Platelet poor plasma by Coagulation assay [facility] Comment on above: DESIRED INR:2.0-3.0 CONDITIONS NOT LISTED BELOW2.5-3.5 FOR PROSTHETIC HEART VALVE REPLACEMENT2.5-3.5 RECURRENT THROMBOSIS Laboratory - Chemistry and C hemistry - challengeon 08-05-2024 Albumin [Mass/Vol] 3.7 g/dL 3.4-5.0 [facility] ALP [Catalytic activity/Vol] 91 U/L 46-116 [facility] ALT [Catalytic activity/Vol] 20 U/L 14-59 [facility] AST [Catalytic activity/Vol] 20 U/L 15-37 [facility] Bilirubin [Mass/Vol] 0.4 mg/dL 0.2-1.0 [facility] Calcium [Mass/Vol] 10.0 mg/dL 8.5-10.1 [facility] Chloride [Moles/Vol] 102 mmol/L 98-107 [facility] CO2 [Moles/Vol] 28.1 mmol/L 21.0-32.0 [facility] Creatinine [Mass/Vol] 0.81 mg/dL 0.55-1.02 [facility] GFR/1.73 sq M.predicted MDRD (S/P/Bld) [Vol rate/Area] mL/min/{1.73_m2} >=60 mL/min/1.73m 2 [facility] Glucose [Mass/Vol] 146 mg/dL High 74-106 [facility] Magnesium [Mass/Vol] 1.7 mg/dL Low 1.8-2.4 [facility] Natriuretic peptide B (Bld) [Mass/Vol] 56.0 pg/mL <=900.0 [facility] Potassium [Moles/Vol] 4.7 mmol/L 3.5-5.1 [facility] Protein [Mass/Vol] 7.4 g/dL 6.4-8.2 [facility] Sodium [Moles/Vol] 138 mmol/L 136-145 [facility] Urea nitrogen [Mass/Vol] 21.0 mg/dL High 7.0-18.0 [facility] Urea nitrogen/Creatinine [Mass ratio] 25.9 mg/mg [facility] - Hematology and Cell countson 08-05-2024 Immature granulocytes/100 WBC (Bld) 0.7 % High 0.0-0.5 [facility] - Microbiology an d Antimicrobial susceptibilityon 08-05-2024 SARS-CoV-2 (COVID-19) RNA ARIADNA+probe Ql (Unsp spec) Negative NEGATIVE [facility] Comment on above: This test has not [...] erythrocytes in Blood by Automated coun 4.0-11.0 [facility] Lymphocytes Auto (Bld) [#/Vo l]on 08-05-2024 Lymphocytes (Bld) [#/Vol] Lymphocytes [#/volume] in Blood by Automated count 1.2-3.8 [facility] Lymphocytes/100 WBC Auto (Bl d)on 08-05-2024 Lymphocytes/100 WBC (Bld) Lymphocytes/100 leukocytes in Blood by Automated count 20.5-60.0 [facility] MCH Auto (RBC) [Entitic mass ]on 08-05-2024 MCH (RBC) [Entitic mass] MCH [Entitic mass] by Automated count 26.7-34.0 [facility] MCHC Auto (RBC) [Mass/Vol]on 08-05-2024 MCHC (RBC) [Mass/Vol] MCHC [Mass/volume] by Automated count 29.9-35.2 [facility] MCV Auto (RBC) [Entitic vol] on 08-05-2024 MCV (RBC) [Entitic vol] MCV [Entitic vol ume] by Automated count 81.0-99.0 [facility] Monocytes Auto (Bld) [#/Vol] on 08-05-2024 Monocytes (Bld) [#/Vol] Automated blood monocyte count 0.3-0.8 [facility] Monocytes/100 WBC Auto (Bld) on 08-05-2024 Monocytes/100 WBC (Bld) Automated monocyte % 1. 7-12.0 [facility] Neutrophils Auto (Bld) [#/Vo l]on 08-05-2024 Neutrophils (Bld) [#/Vol] Neutrophils [#/volume] in Blood by Automated count 1.4-6.5 [facility] Neutrophils/100 WBC Auto (Bl d)on 08-05-2024 Neutrophils/100 WBC (Bld) Automated neutrophil % 43.0-75.0 [facility] No Panel Informationon 08-05 Troponin I High Sensitivity 7.6 pg/mL 4.0-51.3 [facility] Comment on above: CUT-OFF POINTS HAVE [...] Eosinophils # (Auto) 0.5 10 3/uL 0.0-0.7 [facility] Immature Granulocyte # (Auto) 0.07 10 3/uL High 0.00-0.03 [facility] Platelet mean volume Auto (B ld) [Entitic vol]on 08-05-2024 Platelet mean volume (Bld) [Entitic vol] Platelet mean volume [Entitic volume] in Blood by Automated count 9.5-13.5 [facility] Platelets Auto (Bld) [#/Vol] on 08-05-2024 Platelets (Bld) [#/Vol] Platelets [#/vol ume] in Blood by Automated count 150-450 [facility] Prothrombin time (PT)on 07-19 PT Coag (PPP) [Time] Prothrombin time (PT) 9.0-11.6 [facility] RBC Auto (Bld) [#/Vol]on RBC (Bld) [#/Vol] Erythrocytes [#/volume] in Blood by Automated count 4.20-5.40 [facility] Serum or plasma albumin/glob ulin mass ratioon 08-05-2024 Albumin/Globulin [Mass ratio] Serum or plasma albumin/globulin mass ratio [facility] Serum or plasma anion gap de terminationon 08-05-2024 Anion gap [Moles/Vol] Serum or plasma anion gap determination [facility] Blood Urea Nitrogenon 2024 Urea nitrogen [Mass/Vol] 20 mg/dL Normal 7-25 [facility] Comment on above: Order Comment: STAT FOR CT Performed By: #### B UN, CREAT #### [address] abdomen pelvis w conon CT abdomen pelvis w con [place] [address] CT Scan Report Signed Patient: Canelo Pathak MR#: [id number] 4 : 1965 Acct:[id number] Age/Sex: 58 / F ADM Date: 07/30/24 Loc: CT Room: Type: [facility] Attending Dr: Carol Alegria DO Copies [...] Cameron Worthy M.D.07/30/2024 1:18 PM Dictation Location: [place] [address] Transcribed By: [facility] 07/30/24 1318 Dictated By: Cameron Worthy MD 07/30/24 1314 Signed By: 07/30/24 1318 Normal [facility] Creatinineon 07-30-2024 Creatinine [Mass/Vol] 0.85 mg/dL Normal 0.60-1.20 [facility] Comment on above: Order Comment: STAT FOR CT Performed By: #### B JOE, CREAT #### [address] GFR/1.73 sq M.predicted MDRD (S/P/Bld) [Vol rate/Area] mL/min/{1.73_m2} Normal [facility] Comment on above: Order Comment: STAT FOR CT Result Comment: PERF ORMED BY: [place] [address] PATHOLOGIST RN INTAKE JERRI ROMERO M.D. Performed By: #### B JOE, CREAT #### [address] [place] [address] [facility] Creatinine [Mass/volume] in Serum or PlasmaOrdered By: Carol Alegria on 07-30-2024 Creatinine [Mass/Vol] Creatinine [Mass/volume] in Serum or Plasma 0.60-1.20 [facility] No Panel InformationOrdered By: Carol Alegria on 07-30-2024 Estimated GFR (CKD-EPI) > 60.0 mL/Min [facility] Creatinine Clearance (Chem N/A [facility] Urea nitrogen [Mass/volume] in Serum or PlasmaOrdered By: Carol Alegria on 07-30-2024 Urea nitrogen [Mass/Vol] Urea nitrogen [Mass/volume] in Serum or Plasma 7- [facility] Basophils Auto (Bld) [#/Vol] on 03-20-2024 Basophils (Bld) [#/Vol] 0.1 10 3/uL 0.0-0.1 [facility] Basophils (Bld) [#/Vol] Automated basoph il count 0.0-0.1 [facility] Basophils/100 WBC Auto (Bld) on 03-20-2024 Basophils/100 WBC (Bld) 0.9 % 0.2-2.0 F [facility] Basophils/100 WBC (Bld) Automated basophil % 0. 2-2.0 [facility] Cholesterol in LDL Calc [Mas s/Vol]on 03-20-2024 Cholesterol in LDL [Mass/Vol] 87.0 mg/dL [facility] Comment on above: <100 mg/dl [id number] 0-129 mg/dl NEAR OR ABOVE [id number] mg/dl BORDERLINE [id number] mg/dl HIGH>190 mg/dl VERY HIGH Cholesterol in LDL [Mass/Vol] Cholesterol in LDL [Mass/volume] in Serum or Plasma by calculation [facility] Comment on above: <100 mg/dl [id number] 0-129 mg/dl NEAR OR ABOVE RBQVPKM093-383 mg/dl BORDERLINE ASUU951-797 mg/dl HIGH>190 mg/dl VERY HIGH Cholesterol in VLDL Calc [Ma ss/Vol]on 03-20-2024 Cholesterol in VLDL [Mass/Vol] 15.0 mg/dL [facility] Cholesterol in VLDL [Mass/Vol] Cholesterol in VLDL [Mass/volume] in Serum or Plasma by calculation [facility] Eosinophils/100 WBC Auto (Bl d)on 03-20-2024 Eosinophils/100 WBC (Bld) 3.3 % 0.9-7.0 [facility] Eosinophils/100 WBC (Bld) Automated eosinophil % 0.9-7.0 [facility] Erythrocyte distribution wid th Auto (RBC) [Ratio]on 03-20-2024 Erythrocyte distribution width (RBC) [Ratio] 12.4 % 11.0-15.0 [facility] Erythrocyte distribution width (RBC) [Ratio] Erythrocyte distribution width [Ratio] by Automated count 11.0-15.0 [facility] Estimated glomerular filtrat ion rate (GFR) non- Americanon 03-20-2024 GFR/1.73 sq M.predicted among non-blacks MDRD (S/P/Bld) [Vol rate/Area] mL/min/{1.73_m2} >=60 mL/min/1.73m 2 [facility] GFR/1.73 sq M.predicted among non-blacks MDRD (S/P/Bld) [Vol rate/Area] Estimated glomerular filtration rate (GFR) non- >=60 mL/min/1.73m 2 [facility] Globulin Calc (S) [Mass/Vol] on 03-20-2024 Globulin (S) [Mass/Vol] 3.3 g/dL [facility] Globulin (S) [Mass/Vol] Serum globulin measurement by calculation (mass/volume) [facility] Glucose mean value [Mass/vol ume] in Blood Estimated from glycated hemoglobinon 03-20-2024 Average glucose Estimated from glycated hemoglobin (Bld) [Mass/Vol] 140 mg/dL [facility] Average glucose Estimated from glycated hemoglobin (Bld) [Mass/Vol] Glucose mean value [Mass/volume] in Blood Estimated from glycated hemoglobin [facility] Hematocrit Auto (Bld) [Volum e fraction]on 03-20-2024 Hematocrit (Bld) [Volume fraction] 39.9 % 36.0-48.0 [facility] Hematocrit (Bld) [Volume fraction] Hematocrit [Volume Fraction] of Blood by Automated count 36.0-48.0 [facility] Hemoglobin [Mass/volume] in Bloodon 03-20-2024 Hemoglobin (Bld) [Mass/Vol] 13.2 g/dL 12.0-16.0 [facility] Hemoglobin (Bld) [Mass/Vol] Hemoglobin [Mass/volume] in Blood 12.0-16.0 [facility] Laboratory - Chemistry and C hemistry - challengeon 03-20-2024 Albumin [Mass/Vol] 3.3 g/dL Low 3.4-5.0 [facility] ALP [Catalytic activity/Vol] 72 U/L 46-116 [facility] ALT [Catalytic activity/Vol] 22 U/L 14-59 [facility] AST [Catalytic activity/Vol] 11 U/L Low 15-37 [facility] Bilirubin [Mass/Vol] 0.4 mg/dL 0.2-1.0 [facility] Calcium [Mass/Vol] 9.0 mg/dL 8.5-10.1 [facility] Chloride [Moles/Vol] 105 mmol/L 98-107 [facility] Cholesterol [Mass/Vol] 174 mg/dL <=200 [facility] Cholesterol in HDL [Mass/Vol] 72 mg/dL High 40-60 [facility] Comment on above: > or =60 mg/dl - LOW CARDIOVASCULAR RISK<40 mg/dl - HIGH CARDIOVASCULAR RISK CO2 [Moles/Vol] 28.6 mmol/L 21.0-32.0 [facility] Creatinine [Mass/Vol] 0.89 mg/dL 0.55-1.02 [facility] Free T4 [Mass/Vol] 1.53 ng/dL High 0.76-1.46 [facility] GFR/1.73 sq M.predicted MDRD (S/P/Bld) [Vol rate/Area] mL/min/{1.73_m2} >=60 mL/min/1.73m 2 [facility] Glucose [Mass/Vol] 119 mg/dL High 74-106 [facility] Potassium [Moles/Vol] 4.1 mmol/L 3.5-5.1 [facility] Protein [Mass/Vol] 6.6 g/dL 6.4-8.2 [facility] Sodium [Moles/Vol] 143 mmol/L 136-145 [facility] Triglyceride [Mass/Vol] 75 mg/dL <=150 F [facility] TSH Qn 1.000 m[IU]/L 0.358-3.740 [facility] Urea nitrogen [Mass/Vol] 18.0 mg/dL 7.0-18.0 [facility] Urea nitrogen/Creatinine [Mass ratio] 20.2 mg/mg [facility] Laboratory - Hematology and Cell countson 03-20-2024 HbA1c (Bld) [Mass fraction] 6.5 % High 4.5-6.2 [facility] Comment on above: ADA RECOMMENDED LIMI T 4.0 - 6.0ADA THERAPEUTIC TARGET < 7.0ACTION SUGGESTED> 7.0 Immature granulocytes/100 WBC (Bld) 0.2 % 0.0-0.5 [facility] Leukocytes [#/volume] correc reilly for nucleated erythrocytes in Blood by Automated counon 03-20-2024 WBC corrected for nucl RBC Auto (Bld) [#/Vol] 8.5 10 3/uL 4.0-11.0 [facility] WBC corrected for nucl RBC Auto (Bld) [#/Vol] Leukocytes [#/volume] corrected for nucleated erythrocytes in Blood by Automated coun 4.0-11.0 [facility] Lymphocytes Auto (Bld) [#/Vo l]on 03-20-2024 Lymphocytes (Bld) [#/Vol] 2.3 10 3/uL 1.2-3.8 [facility] Lymphocytes (Bld) [#/Vol] Lymphocytes [#/volume] in Blood by Automated count 1.2-3.8 [facility] Lymphocytes/100 WBC Auto (Bl d)on 03-20-2024 Lymphocytes/100 WBC (Bld) 26.5 % 20.5-60.0 [facility] Lymphocytes/100 WBC (Bld) Lymphocytes/100 leukocytes in Blood by Automated count 20.5-60.0 [facility] MCH Auto (RBC) [Entitic mass ]on 03-20-2024 MCH (RBC) [Entitic mass] 31.0 pg 26.7-34.0 [facility] MCH (RBC) [Entitic mass] MCH [Entitic mass] by Automated count 26.7-34.0 [facility] MCHC Auto (RBC) [Mass/Vol]on 03-20-2024 MCHC (RBC) [Mass/Vol] 33.1 g/dL 29.9-35.2 [facility] MCHC (RBC) [Mass/Vol] MCHC [Mass/volume] by Automated count 29.9-35.2 [facility] MCV Auto (RBC) [Entitic vol] on 03-20-2024 MCV (RBC) [Entitic vol] 93.7 fL 81.0-99.0 [facility] MCV (RBC) [Entitic vol] MCV [Entitic vol ume] by Automated count 81.0-99.0 [facility] Monocytes Auto (Bld) [#/Vol] on 03-20-2024 Monocytes (Bld) [#/Vol] 0.6 10 3/uL 0.3-0.8 [facility] Monocytes (Bld) [#/Vol] Automated blood monocyte count 0.3-0.8 [facility] Monocytes/100 WBC Auto (Bld) on 03-20-2024 Monocytes/100 WBC (Bld) 6.4 % 1.7-12.0 [facility] Monocytes/100 WBC (Bld) Automated monocyte % 1. 7-12.0 [facility] Neutrophils Auto (Bld) [#/Vo l]on 03-20-2024 Neutrophils (Bld) [#/Vol] 5.4 10 3/uL 1.4-6.5 [facility] Neutrophils (Bld) [#/Vol] Neutrophils [#/volume] in Blood by Automated count 1.4-6.5 [facility] Neutrophils/100 WBC Auto (Bl d)on 03-20-2024 Neutrophils/100 WBC (Bld) 62.7 % 43.0-75.0 [facility] Neutrophils/100 WBC (Bld) Automated neutrophil % 43.0-75.0 [facility] No Panel Informationon 03-20 25-Hydroxy Vitamin D Total 36.0 ng/mL [facility] Comment on above: <20 ng/mL Vit D defi cient20-<30 ng/mL Vit D tusdtwzzzlru92-654 ng/mL Vit D sufficient>100 ng/mL Potential Toxicity Eosinophils # (Auto) 0.3 10 3/uL 0.0-0.7 [facility] Immature Granulocyte # (Auto) 0.02 10 3/uL 0.00-0.03 [facility] Total Triiodothyronine 99 ng/dL 71-180 [facility] Comment on above: Performed at: - [facility] [address] [id number] Director: Giuseppe Newell PhD, Phone: [phone] Platelet mean volume Auto (B ld) [Entitic vol]on 03-20-2024 Platelet mean volume (Bld) [Entitic vol] 9.5 fL 9.5-13.5 [facility] Platelet mean volume (Bld) [Entitic vol] Platelet mean volume [Entitic volume] in Blood by Automated count 9.5-13.5 [facility] Platelets Auto (Bld) [#/Vol] on 03-20-2024 Platelets (Bld) [#/Vol] 364 10 3/uL 150-450 [facility] Platelets (Bld) [#/Vol] Platelets [#/vol ume] in Blood by Automated count 150-450 [facility] RBC Auto (Bld) [#/Vol]on RBC (Bld) [#/Vol] 4.26 10 6/uL 4.20-5.40 [facility] RBC (Bld) [#/Vol] Erythrocytes [#/volume] in Blood by Automated count 4.20-5.40 [facility] Serum or plasma albumin/glob ulin mass ratioon 03-20-2024 Albumin/Globulin [Mass ratio] 1.0 {ratio} [facility] Albumin/Globulin [Mass ratio] Serum or plasma albumin/globulin mass ratio [facility] Serum or plasma anion gap de terminationon 03-20-2024 Anion gap [Moles/Vol] 13.5 mmol/L [facility] Anion gap [Moles/Vol] Serum or plasma anion gap determination [facility] Serum or plasma total choles terol/high density lipoprotein (HDL) cholesterol mass constantin 03-20-2024 Cholesterol.total/Haylie sterol in HDL [Mass ratio] 2.4 {ratio} [facility] Comment on above: 3.3 - 4.4 LOW RISK4. 4 - 7.1 AVERAGE RISK7.1 - 11.0 MODERATE RISK>11.0 HIGH RISK Cholesterol.total/Haylie sterol in HDL [Mass ratio] Serum or plasma total cholesterol/high density lipoprotein (HDL) cholesterol mass rat [facility] Comment on above: 3.3 - 4.4 [...] from 5-10 stools per day type on [place] stool scale form, urgent and explosive to [...] water, # 120 tabs, 0 Refill(s), Pharmacy: [id number] esomeprazole, 1 caps, Oral, BID, # 180 caps, 0 Refill(s), Pharmacy: [id number] ondansetron, 1 tabs, Oral, q8hr, PRN, # 60 tabs, 0 Refill(s), Pharmacy: [id number] polyethylene glycol 3350 with electrolytes, See Instructions, for colonoscopy prep, # 4,000 mL, 0 Refill(s), Pharmacy: [id number] 1. 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 [...] Endometriosis Fibromyalg (more content not included)... Normal [facility] XR hips BI 4V adulton 2023 XR hips BI [address]V [address] [facility] Main [place] [id number] XRay Report Signed Patient: Canelo Pathak MR#: [id number] 4 : 1965 Acct:[id number] Age/Sex: 58 / F ADM Date: 12/05/23 Loc: XD Room: Type: [facility] Attending Dr: Logan Brown MD Copies [...] Omid Seals M.D.12/05/2023 5:09 PM Dictation Location: [facility] Transcribed By: FLORINA 12/05/231708 Dictated By: Omid Seals DO 12/05/231707 Signed By: 12/05/231708 Normal [facility] XR lumbar spine AP/LAT/FLX/E XTon 12-05-2023 XR lumbar spine AP/LAT/FLX/EXT [facility] [place] [address] [place] [address] XRay Report Signed Patient: Canelo Pathak MR#: [id number] 4 : 1965 Acct:[id number] Age/Sex: 58 / F ADM Date: 12/05/23 Loc: XD Room: Type: [facility] Attending Dr: Logan Brown MD Copies [...] Omid Seals M.D.12/05/2023 5:08 PM Dictation Location: [facility] Transcribed By: FLORINA 12/05/231707 Dictated By: Omid Seals DO 12/05/231705 Signed By: 12/05/231707 Normal [facility] Estimated glomerular filtrat ion rate (GFR) non- Americanon 10-25-2023 GFR/1.73 sq M.predicted among non-blacks MDRD (S/P/Bld) [Vol rate/Area] mL/min/{1.73_m2} >=60 [facility] - Chemistry and C hemistry - challengeon 10-25-2023 Calcium [Mass/Vol] 9.3 mg/dL 8.5-10.1 [facility] Chloride [Moles/Vol] 103 mmol/L 98-107 [facility] CO2 [Moles/Vol] 29.7 mmol/L 21.0-32.0 [facility] Creatinine [Mass/Vol] 0.88 mg/dL 0.55-1.02 [facility] Free T4 [Mass/Vol] 1.33 ng/dL 0.76-1.46 [facility] GFR/1.73 sq M.predicted MDRD (S/P/Bld) [Vol rate/Area] mL/min/{1.73_m2} >=60 [facility] Glucose [Mass/Vol] 121 mg/dL High 74-106 [facility] Potassium [Moles/Vol] 4.4 mmol/L 3.5-5.1 [facility] Sodium [Moles/Vol] 140 mmol/L 136-145 [facility] TSH Qn 5.994 m[IU]/L High 0.358-3.740 [facility] Urea nitrogen [Mass/Vol] 18.0 mg/dL 7.0-18.0 [facility] Urea nitrogen/Creatinine [Mass ratio] 20.5 mg/mg [facility] No Panel Informationon 10-24 Total Triiodothyronine 100 ng/dL 71-180 [facility] Comment on above: Performed at: [address] [id number] Director: Giuseppe Newell PhD, Phone: [phone] Serum or plasma anion gap de terminationon 10-25-2023 Anion gap [Moles/Vol] 11.7 mmol/L [facility] Patient Correspondenceon Patient Correspondence [id number] #1.00TIFF Normal [facility] Automated epithelial cells c ount in urine sediment (number/area)on 08-23-2023 Epithelial cells Auto (Urine sed) [#/Area] RARE #/LPF NONE/RARE [facility] Automated leukocytes count i n urine sediment (number/area)on 08-23-2023 WBC Auto (Urine sed) [#/Area] 0-2 #/HPF 0-2 [facility] Automated urine specific gra vity by refractometryon 08-23-2023 Specific gravity Refractometry automated (U) [Rel density] >=1.030 1.005-1.025 [facility] Basophils Auto (Bld) [#/Vol] on 08-23-2023 Basophils (Bld) [#/Vol] 0.1 10 3/uL 0.0-0.1 [facility] Basophils/100 WBC Auto (Bld) on 08-23-2023 Basophils/100 WBC (Bld) 1.4 % 0.2-2.0 [facility] Bilirubin Auto test strip (U ) [Mass/Vol]on 08-23-2023 Bilirubin (U) [Mass/Vol] Negative NEGATIVE [facility] Casts typing in urine sedime nt by light microscopyon 08-23-2023 Casts LM Nom (Urine sed) NONE SEEN #/LPF NONE SEEN [facility] Cholesterol in LDL Calc [Mas s/Vol]on 08-23-2023 Cholesterol in LDL [Mass/Vol] 101.0 mg/dL [facility] Comment on above: <100 mg/dl [id number] 0-129 mg/dl NEAR OR ABOVE [id number] mg/dl BORDERLINE [id number] mg/dl HIGH>190 mg/dl VERY HIGH Cholesterol in VLDL Calc [Ma ss/Vol]on 08-23-2023 Cholesterol in VLDL [Mass/Vol] 25.0 mg/dL [facility] Color Auto (U)on 08-23-2023 Color (U) YELLOW YELLOW [facility] Eosinophils/100 WBC Auto (Bl d)on 08-23-2023 Eosinophils/100 WBC (Bld) 5.2 % 0.9-7.0 [facility] Erythrocyte distribution wid th Auto (RBC) [Ratio]on 08-23-2023 Erythrocyte distribution width (RBC) [Ratio] 12.1 % 11.0-15.0 [facility] Estimated glomerular filtrat ion rate (GFR) non- Americanon 08-23-2023 GFR/1.73 sq M.predicted among non-blacks MDRD (S/P/Bld) [Vol rate/Area] mL/min/{1.73_m2} >=60 [facility] Globulin Calc (S) [Mass/Vol] on 08-23-2023 Globulin (S) [Mass/Vol] 3.3 g/dL [facility] Glucose mean value [Mass/vol ume] in Blood Estimated from glycated hemoglobinon 08-23-2023 Average glucose Estimated from glycated hemoglobin (Bld) [Mass/Vol] 143 mg/dL [facility] Hematocrit Auto (Bld) [Volum e fraction]on 08-23-2023 Hematocrit (Bld) [Volume fraction] 41.2 % 36.0-48.0 [facility] Hemoglobin [Mass/volume] in Bloodon 08-23-2023 Hemoglobin (Bld) [Mass/Vol] 13.6 g/dL 12.0-16.0 [facility] Ketones Auto test strip (U) [Mass/Vol]on 08-23-2023 Ketones (U) [Mass/Vol] Negative NEGATIVE [facility] - Chemistry and C hemistry - challengeon 08-23-2023 Albumin [Mass/Vol] 3.8 g/dL 3.4-5.0 [facility] ALP [Catalytic activity/Vol] 72 U/L 46-116 [facility] ALT [Catalytic activity/Vol] 25 U/L 14-59 [facility] AST [Catalytic activity/Vol] 14 U/L 15-37 [facility] Bilirubin [Mass/Vol] 0.5 mg/dL 0.2-1.0 [facility] Calcium [Mass/Vol] 9.1 mg/dL 8.5-10.1 [facility] Chloride [Moles/Vol] 103 mmol/L 98-107 [facility] Cholesterol [Mass/Vol] 193 mg/dL <=200 [facility] Cholesterol in HDL [Mass/Vol] 67 mg/dL 40-60 [facility] Comment on above: > or =60 mg/dl - LOW CARDIOVASCULAR RISK<40 mg/dl - HIGH CARDIOVASCULAR RISK CO2 [Moles/Vol] 28.7 mmol/L 21.0-32.0 [facility] Creatinine [Mass/Vol] 0.77 mg/dL 0.55-1.02 [facility] Free T4 [Mass/Vol] 1.11 ng/dL 0.76-1.46 [facility] GFR/1.73 sq M.predicted MDRD (S/P/Bld) [Vol rate/Area] mL/min/{1.73_m2} >=60 [facility] Glucose [Mass/Vol] 117 mg/dL 74-106 [facility] Potassium [Moles/Vol] 4.2 mmol/L 3.5-5.1 [facility] Protein [Mass/Vol] 7.1 g/dL 6.4-8.2 [facility] Sodium [Moles/Vol] 142 mmol/L 136-145 [facility] Triglyceride [Mass/Vol] 125 mg/dL <=150 F [facility] TSH Qn 18.751 m[IU]/L 0.358-3.740 [facility] Urea nitrogen [Mass/Vol] 19.0 mg/dL 7.0-18.0 [facility] Urea nitrogen/Creatinine [Mass ratio] 24.7 mg/mg [facility] - Hematology and Cell countson 08-23-2023 HbA1c (Bld) [Mass fraction] 6.6 % 4.5-6.2 [facility] Comment on above: ADA RECOMMENDED LIMI T 4.0 - 6.0ADA THERAPEUTIC TARGET < 7.0ACTION SUGGESTED> 7.0 Immature granulocytes/100 WBC (Bld) 0.3 % 0.0-0.5 [facility] Leukocytes [#/volume] correc reilly for nucleated erythrocytes in Blood by Automated counon 08-23-2023 WBC corrected for nucl RBC Auto (Bld) [#/Vol] 7.4 10 3/uL 4.0-11.0 [facility] Lymphocytes Auto (Bld) [#/Vo l]on 08-23-2023 Lymphocytes (Bld) [#/Vol] 2.2 10 3/uL 1.2-3.8 [facility] Lymphocytes/100 WBC Auto (Bl d)on 08-23-2023 Lymphocytes/100 WBC (Bld) 29.7 % 20.5-60.0 [facility] MCH Auto (RBC) [Entitic mass ]on 08-23-2023 MCH (RBC) [Entitic mass] 31.3 pg 26.7-34.0 [facility] MCHC Auto (RBC) [Mass/Vol]on 08-23-2023 MCHC (RBC) [Mass/Vol] 33.0 g/dL 29.9-35.2 [facility] MCV Auto (RBC) [Entitic vol] on 08-23-2023 MCV (RBC) [Entitic vol] 94.7 fL 81.0-99.0 [facility] Monocytes Auto (Bld) [#/Vol] on 08-23-2023 Monocytes (Bld) [#/Vol] 0.5 10 3/uL 0.3-0.8 [facility] Monocytes/100 WBC Auto (Bld) on 08-23-2023 Monocytes/100 WBC (Bld) 6.4 % 1.7-12.0 [facility] Mucus LM Ql (Urine sed)on Mucus Ql (Urine sed) MODERATE NONE SEEN [facility] Neutrophils Auto (Bld) [#/Vo l]on 08-23-2023 Neutrophils (Bld) [#/Vol] 4.2 10 3/uL 1.4-6.5 [facility] Neutrophils/100 WBC Auto (Bl d)on 08-23-2023 Neutrophils/100 WBC (Bld) 57.0 % 43.0-75.0 [facility] No Panel Informationon 08-22 25-Hydroxy Vitamin D Total 35.2 ng/mL [facility] Comment on above: <20 ng/mL Vit D defi cient20-<30 ng/mL Vit D htopcflokawi20-125 ng/mL Vit D sufficient>100 ng/mL Potential Toxicity Eosinophils # (Auto) 0.4 10 3/uL 0.0-0.7 [facility] Free Triiodothyronine 1.94 pg/mL 2.18-3.98 [facility] Immature Granulocyte # (Auto) 0.02 10 3/uL 0.00-0.03 [facility] Platelet mean volume Auto (B ld) [Entitic vol]on 08-23-2023 Platelet mean volume (Bld) [Entitic vol] 9.7 fL 9.5-13.5 [facility] Platelets Auto (Bld) [#/Vol] on 08-23-2023 Platelets (Bld) [#/Vol] 347 10 3/uL 150-450 [facility] Protein Auto test strip (U) [Mass/Vol]on 08-23-2023 Protein (U) [Mass/Vol] Negative NEG/TRACE [facility] RBC Auto (Bld) [#/Vol]on RBC (Bld) [#/Vol] 4.35 10 6/uL 4.20-5.40 [facility] Serum or plasma albumin/glob ulin mass ratioon 08-23-2023 Albumin/Globulin [Mass ratio] 1.2 {ratio} [facility] Serum or plasma anion gap de terminationon 08-23-2023 Anion gap [Moles/Vol] 14.5 mmol/L [facility] Serum or plasma total choles terol/high density lipoprotein (HDL) cholesterol mass constantin 08-23-2023 Cholesterol.total/Haylie sterol in HDL [Mass ratio] 2.9 {ratio} [facility] Comment on above: 3.3 - 4.4 LOW RISK4. 4 - 7.1 AVERAGE RISK7.1 - 11.0 MODERATE RISK>11.0 HIGH RISK Specific gravity Auto test s trip (U) [Rel density]on 08-23-2023 Specific gravity (U) [Rel density] CLEAR CLEAR [facility] Urine bacteria detection by automated methodon 08-23-2023 Bacteria Auto Ql (U) NONE SEEN #/HPF NONE SEEN [facility] Urine glucose measurement by test strip (mass/volume)on 08-23-2023 Glucose Test strip (U) [Mass/Vol] Negative NEGATIVE [facility] Urine hemoglobin detection b y automated test stripon 08-23-2023 Hemoglobin Auto test strip Ql (U) Negative NEGATIVE [facility] Urine nitrite detection by a utomated test stripon 08-23-2023 Nitrite Auto test strip Ql (U) Negative NEGATIVE [facility] Urine sediment crystal ident ification by light microscopyon 08-23-2023 Crystals LM Nom (Urine sed) None Seen #/HPF None Seen [facility] Urine sediment leukocyte cou nt by microscopy (number/high power field)on 08-23-2023 WBC LM.HPF (Urine sed) [#/Area] 0-2 #/HPF NONE SEEN [facility] Urobilinogen Auto test strip (U) [Mass/Vol]on 08-23-2023 Urobilinogen Qn (U) 0.2 {David'U}/dL 0.2-1.0 [facility] pH Auto test strip (U)on pH (U) 5.5 [pH] 5.0-9.0 [facility] Patient Correspondenceon Patient Correspondence [id number] 2#1.00TIFF Normal [facility] Insurance Correspondence Off iceon 05-16-2023 Insurance Correspondence Office [id number] 1#1.00TIFF Normal [facility] Consent for Treatmenton 04-21 Consent for Treatment [id number] 2#1.00TIFF Normal [facility] Consultation Noteon 05-10-20 Consultation Note Patient: CANELO [...] She has tried conservative measures inclusive of dmee-kph-ksiavlm medications and prescription medications inclusive of meloxicam, [...] Histories Past Medical History: Active Acid reflux (365579559) Asthma (219297416) Hypothyroid (163894027) Family History: No family history items have been selected or recorded. Procedure history: Myringotomy and insertion of T tube (843219904). Comments: 02/22/2011 10:22 TINOT - Trixie HART, [place] x2 Tonsillectomy (320853448). Cholecystectomy (04708434). Laparoscopy (011617937). Abdominal hysterectomy (177685190). Physical Examination Vital Signs (last 24 hrs) Last Charted Heart Rate Peripheral 81 bpm (MAY 10:) SBP H 162mmHg (MAY 10:) DBP H [...] patient, who voiced (more content not included)... Normal [facility] Comment on above: Result Comment: Elec tronically Signed By: Casper Nguyen DO\Date and Time Signed: 05/10/23 15:07 EST HIPAA Forms Officeon 023 HIPAA Forms Office [id number] #1.00TIFF Normal [facility] Legal Correspondence Officeo n 05-10-2023 Legal Correspondence Office [id number] #1.00TIFF Normal [facility] Legal Correspondence Office [id number] #1.00TIFF Normal [facility] Office/Clinic Note-Physician on 05-10-2023 Office/Clinic Note-Physician [id number] #1.00TIFF Normal [facility] Patient Correspondenceon Patient Correspondence [id number] #1.00TIFF Normal [facility] Patient Correspondence [id number] #1.00TIFF Normal [facility] Patient Correspondence [id number] #1.00TIFF Normal [facility] Patient Correspondence [id number] #1.00TIFF Normal [facility] Patient Correspondence [id number] #1.00TIFF Normal [facility] Patient History Officeon Patient History Office [id number] #1.00TIFF Normal [facility] Outside Records Officeon Outside Records Office [id number] 4#1.00TIFF Normal [facility] Radiology Outside Office Telephony Engineer yon 05-07-2023 Radiology Outside Office Copy [id number] 1#1.00TIFF Normal [facility] Referrals Officeon 3 Referrals Office [id number] 1#1.00TIFF Normal [facility] MR LUMBAR SPINE WO CONTRASTo n 04-24-2023 [...] 09-08-2022 BASO # 0.1 103/ul Normal 0.0-0.1 [facility] Comment on above: Performed By: #### F T3, CMP, LIPID, TSH #### [facility] [address] [place] [address] Dr. Gin Chew Basophils/100 WBC (Bld) 0.9 % Normal 0.2-2.0 [facility] Comment on above: Performed By: #### F T3, CMP, LIPID, TSH #### [facility] [address] [place] [address] Dr. Gin Chew EO # 0.5 103/ul Normal 0.0-0.7 [facility] Comment on above: Performed By: #### F T3, CMP, LIPID, TSH #### [facility] [address] [place] [address] Dr. Gin Chew Eosinophils/100 WBC (Bld) 5.8 % Normal 0.9-7.0 [facility] Comment on above: Performed By: #### F T3, CMP, LIPID, TSH #### [facility] [address] [place] [address] Dr. Gin Chew Erythrocyte distribution width (RBC) [Ratio] 13.0 % Normal 11.0-15.0 [facility] Comment on above: Performed By: #### F T3, CMP, LIPID, TSH #### [facility] [address] [place] [address] Dr. Gin Chew Hematocrit (Bld) [Volume fraction] 39.7 % Normal 36.0-48.0 [facility] Comment on above: Performed By: #### F T3, CMP, LIPID, TSH #### [facility] [address] [place] [address] Dr. Gin Chew Hemoglobin (Bld) [Mass/Vol] 13.2 g/dL Normal 12.0-16.0 [facility] Comment on above: Performed By: #### F T3, CMP, LIPID, TSH #### [facility] [address] [place] [address] Dr. Gin Chew IG # 0.05 10e3/ul Critically high 0.00-0.03 [facility] Comment on above: Performed By: #### F T3, CMP, LIPID, TSH #### [facility] [address] [place] [address] [address] Gin Chew IG % 0.6 % Critically high 0.0-0.5 [facility] Comment on above: Performed By: #### F T3, CMP, LIPID, TSH #### [facility] [address] [place] [address] Dr. Gin Chew LYMPH # 2.1 103/ul Normal 1.2-3.8 [facility] Comment on above: Performed By: #### F T3, CMP, LIPID, TSH #### [facility] [address] [place] [address] Dr. Gin Chew Lymphocytes/100 WBC (Bld) 27.4 % Normal 20.5-60.0 [facility] Comment on above: Performed By: #### F T3, CMP, LIPID, TSH #### [facility] [address] [place] [address] Dr. Gin Chew MANUAL DIFF REQ NO Normal [facility] Comment on above: Performed By: #### F T3, CMP, LIPID, TSH #### [facility] [address] [place] [address] Dr. Gin Chew MCH (RBC) [Entitic mass] 30.9 pg Normal 26.7-34.0 [facility] Comment on above: Performed By: #### F T3, CMP, LIPID, TSH #### [facility] [address] [place] [address] Dr. Gin Chew MCHC (RBC) [Mass/Vol] 33.2 g/dL Normal 29.9-35.2 [facility] Comment on above: Performed By: #### F T3, CMP, LIPID, TSH #### [facility] [address] [place] [address] Dr. Gin Chew MCV (RBC) [Entitic vol] 93.0 fL Normal 81.0-99.0 [facility] Comment on above: Performed By: #### F T3, CMP, LIPID, TSH #### [facility] [address] [place], [place] [id number] Dr. Gin Chew MONO # 0.6 103/ul Normal 0.3-0.8 [facility] Comment on above: Performed By: #### F T3, CMP, LIPID, TSH #### [facility] [address] [place] [address] Dr. Gin Chew Monocytes/100 WBC (Bld) 7.1 % Normal 1.7-12.0 [facility] Comment on above: Performed By: #### F T3, CMP, LIPID, TSH #### [facility] [address] [place] [address] Dr. Gin Chew NEUT # 4.5 103/ul Normal 1.4-6.5 [facility] Comment on above: Performed By: #### F T3, CMP, LIPID, TSH #### [facility] [address] [place] [address] Dr. Gin Chew Neutrophils/100 WBC (Bld) 58.2 % Normal 43.0-75.0 [facility] Comment on above: Performed By: #### F T3, CMP, LIPID, TSH #### [facility] [address] [place] [address] Dr. Gin Chew Platelet mean volume (Bld) [Entitic vol] 9.7 fL Normal 9.5-13.5 [facility] Comment on above: Performed By: #### F T3, CMP, LIPID, TSH #### [facility] [address] [place] [address] Dr. Gin Chew PLT 339 103/ul Normal 150-450 [facility] Comment on above: Performed By: #### F T3, CMP, LIPID, TSH #### [facility] [address] [place] [address] Dr. Gin Chew RBC 4.27 106/ul Normal 4.20-5.40 [facility] Comment on above: Performed By: #### F T3, CMP, LIPID, TSH #### [facility] [address] [place] [address] Dr. Gin Chew WBC 7.7 103/ul Normal 4.0-11.0 [facility] Comment on above: Performed By: #### F T3, CMP, LIPID, TSH #### [facility] [address] [place] [address] Dr. Gin Chew PROF CHEM 8 (BAS METB)on Anion gap [Moles/Vol] 9.4 mmol/L Normal [facility] Comment on above: Performed By: #### F T3, CMP, LIPID, TSH #### [facility] [address] [place] [address] Dr. Gin Chew Calcium [Mass/Vol] 9.1 mg/dL Normal 8.5-10.1 [facility] Comment on above: Performed By: #### F T3, CMP, LIPID, TSH #### [facility] [address] [place] [address] Dr. Gin Chew Chloride [Moles/Vol] 104 mmol/L Normal 98-107 [facility] Comment on above: Performed By: #### F T3, CMP, LIPID, TSH #### [facility] [address] [place] [address] Dr. Gin Chew CO2 [Moles/Vol] 31.7 mmol/L Normal 21.0-32.0 [facility] Comment on above: Performed By: #### F T3, CMP, LIPID, TSH #### [facility] [address] [place] [address] Dr. Gin Chew Creatinine [Mass/Vol] 0.77 mg/dL Normal 0.55-1.02 [facility] Comment on above: Performed By: #### F T3, CMP, LIPID, TSH #### [facility] [address] [place] [address] Dr. Gin Chew EGFR-AF MOSOTHO >60 Normal >=60 [facility] Comment on above: Performed By: #### F T3, CMP, LIPID, TSH #### [facility] [address] [place] [address] Dr. Gin Chew EGFR-NON AF MOSOTHO >60 Normal >=60 [facility] Comment on above: Performed By: #### F T3, CMP, LIPID, TSH #### [facility] [address] [place] [address] Dr. Gin Chew Glucose [Mass/Vol] 143 mg/dL Critically high 74-106 [facility] Comment on above: Performed By: #### F T3, CMP, LIPID, TSH #### [facility] [address] [address] [address] Gin Chew Potassium [Moles/Vol] 4.1 mmol/L Normal 3.5-5.1 [facility] Comment on above: Performed By: #### F T3, CMP, LIPID, TSH #### [facility] [address] [address] [address] Gin Chew Sodium [Moles/Vol] 141 mmol/L Normal 136-145 [facility] Comment on above: Performed By: #### F T3, CMP, LIPID, TSH #### [facility] [address] [address] [address] Gin Chew Urea nitrogen [Mass/Vol] 19.0 mg/dL Critically high 7.0-18.0 [facility] Comment on above: Performed By: #### F T3, CMP, LIPID, TSH #### [facility] [address] [address] [address] Gin Chew Urea nitrogen/Creatinine [Mass ratio] 24.7 mg/mg Normal [facility] Comment on above: Performed By: #### F T3, CMP, LIPID, TSH #### [facility] [address] [address] [address] Gin Chew XR CHEST 2 Von [...] Date: 2022-09-08 15:53 Normal [facility] CBC W MANUAL DIFFon 08-22-19 23 ANISOCYTOSIS 1+ Normal [facility] Comment on above: Performed By: #### C BCMAN #### [facility] [address] [place] [address] Dr. Gin Chew ATYPICAL LYMPH # Normal [facility] Comment on above: Performed By: #### C BCMAN #### [facility] [address] [place] [address] Dr. Gin Chew ATYPICAL LYMPH % Normal [facility] Comment on above: Performed By: #### C BCMAN #### [facility] [address] [place] [address] Dr. Gin Chew BAND # 0.6 103/ul Critically high 0.0-0.3 [facility] Comment on above: Performed By: #### C BCDORIS #### [facility] [address] [place] [address] Dr. Gin Chew BAND % 4 % Normal 0-5 [facility] Comment on above: Performed By: #### C BCDORIS #### [facility] [address] [place] [address] Dr. Gin Chew BASOM # 0.00 103/ul Normal 0.00-0.10 [facility] Comment on above: Performed By: #### C TASIA #### [facility] [address] [place] [address] Dr. Gin Chew BASOM % 0.0 % Critically low 0.2-2.0 [facility] Comment on above: Performed By: #### C BCDORIS #### [facility] [address] [place] [address] Dr. Gin Chew BLAST # Normal [facility] Comment on above: Performed By: #### C BCMAN #### [facility] [address] [place] [address] Dr. Gin Chew BLAST % Normal [facility] Comment on above: Performed By: #### C BCDORIS #### [facility] [address] [place] [address] Dr. Gin Chew CORRECTED WBC Normal 4.0-11.0 [facility] Comment on above: Performed By: #### C BCDORIS #### [facility] [address] [place] [address] Dr. Gin Chew EOS # 0.45 103/ul Normal 0.00-0.70 [facility] Comment on above: Performed By: #### C BCDORIS #### [facility] [address] [place] [address] Dr. Gin Chew EOS% 3.0 % Normal 0.9-7.0 [facility] Comment on above: Performed By: #### C BCDORIS #### [facility] [address] [place] [address] Dr. Gin Chew HCT 43.1 % Normal 36.0-48.0 [facility] Comment on above: Performed By: #### C TASIA #### [facility] [address] [place] [address] Dr. Gin Chew HGB 14.4 g/dl Normal 12.0-16.0 [facility] Comment on above: Performed By: #### C BCDORIS #### [facility] [address] [place] [address] Dr. Gin Chew LYMPHM # 3.93 103/ul Critically high 1.20-3.80 [facility] Comment on above: Performed By: #### C TASIA #### [facility] [address] [place] [address] Dr. Gin Chew LYMPHM% 26.0 % Normal 20.5-60.0 [facility] Comment on above: Performed By: #### C BCDORIS #### [facility] [address] [place] [address] Dr. Gin Chew MCH 31.0 pg Normal 26.7-34.0 [facility] Comment on above: Performed By: #### C BCDORIS #### [facility] [address] [place] [address] Dr. Gin Chew MCHC 33.4 g/dl Normal 29.9-35.2 [facility] Comment on above: Performed By: #### C TASIA #### [facility] [address] [place] [address] Dr. Gin Chew MCV 92.7 fL Normal 81.0-99.0 [facility] Comment on above: Performed By: #### C TASIA #### [facility] [address] [address] [address] Gin Chew METAMYELOCYTE # Normal [facility] Comment on above: Performed By: #### C TASIA #### [facility] [address] [place] [address] Dr. Gin Chew METAMYELOCYTE % Normal [facility] Comment on above: Performed By: #### C TASIA #### [facility] [address] [place] [address] Dr. Gin Chew MONOM# 1.06 103/ul Critically high 0.30-0.80 [facility] Comment on above: Performed By: #### C TASIA #### [facility] [address] [place] [address] Dr. Gin Chew MONOM% 7.0 % Normal 1.7-12.0 [facility] Comment on above: Performed By: #### C TASIA #### [facility] [address] [place] [address] Dr. Gin Chew MPV 9.7 fL Normal 9.5-13.5 [facility] Comment on above: Performed By: #### C TASIA #### [facility] [address] [place] [address] Dr. Gin Chew MYELOCYTE # Normal [facility] Comment on above: Performed By: #### C TASIA #### [facility] [address] [place] [address] Dr. Gin Chew MYELOCYTE % Normal [facility] Comment on above: Performed By: #### C TASIA #### [facility] [address] [place] [address] Dr. Gin Chew NRBC Normal [facility] Comment on above: Performed By: #### C TASIA #### [facility] [address] [address] [address] Gin Chew PLT 372 103/ul Normal 150-450 [facility] Comment on above: Performed By: #### Lilli DOZIER #### [facility] [address] [place] [address] Dr. Gin Chew RBC 4.65 106/ul Normal 4.20-5.40 [facility] Comment on above: Performed By: #### C TASIA #### [facility] [address] [place] [address] Dr. Gin Chew RDW 13.0 % Normal 11.0-15.0 [facility] Comment on above: Performed By: #### iLlli DOZIER #### [facility] [address] [place] [address] Dr. Gin Chew SEG # 9.06 103/ul Critically high 1.40-6.50 [facility] Comment on above: Performed By: #### Lilli DOZIER #### [facility] [address] [place] [address] Dr. Gin Chew SEG % 60.0 % Normal 43.0-75.0 [facility] Comment on above: Performed By: #### Lilli DOZIER #### [facility] [address] [place] [address] Dr. Gin Chew WBC 15.1 103/ul Critically high 4.0-11.0 [facility] Comment on above: Performed By: #### Lilli DOZIER #### [facility] [address] [place] [address] Dr. Gin Chew LACTATE/LACTIC ACIDon 2022 Lactate [Moles/Vol] 1.2 mmol/L Normal 0.4-2.0 [facility] Comment on above: Performed By: #### B MP #### [facility] [address] [place] [address] Dr. Gin Chew PROF CHEM 8 (BAS METB)on Anion gap [Moles/Vol] 11.4 mmol/L Normal [facility] Comment on above: Performed By: #### A 1C #### [facility] [address] [place], [place] [id number] Dr. Gin Chew Calcium [Mass/Vol] 9.2 mg/dL Normal 8.5-10.1 [facility] Comment on above: Performed By: #### A 1C #### [facility] [address] [place] [address] Dr. Gin Chew Chloride [Moles/Vol] 102 mmol/L Normal 98-107 [facility] Comment on above: Performed By: #### A 1C #### [facility] [address] [address] [address] Gin Chew CO2 [Moles/Vol] 31.3 mmol/L Normal 21.0-32.0 [facility] Comment on above: Performed By: #### A 1C #### [facility] [address] [place] [address] Dr. Gin Chew Creatinine [Mass/Vol] 0.86 mg/dL Normal 0.55-1.02 [facility] Comment on above: Performed By: #### A 1C #### [facility] [address] [place] [address] Dr. Gin Chew EGFR-AF MOSOTHO >60 Normal >=60 [facility] Comment on above: Performed By: #### A 1C #### [facility] [address] [place] [address] Dr. Gin Chew EGFR-NON AF MOSOTHO >60 Normal >=60 [facility] Comment on above: Performed By: #### A 1C #### [facility] [address] [place] [address] Dr. Gin Chew Glucose [Mass/Vol] 119 mg/dL Critically high 74-106 [facility] Comment on above: Performed By: #### A 1C #### [facility] [address] [address] [address] Gin Chew Potassium [Moles/Vol] 3.7 mmol/L Normal 3.5-5.1 [facility] Comment on above: Performed By: #### A 1C #### [facility] [address] [address] [address] Gin Chew Sodium [Moles/Vol] 141 mmol/L Normal 136-145 [facility] Comment on above: Performed By: #### A 1C #### [facility] [address] [place] [address] Dr. Gin Chew Urea nitrogen [Mass/Vol] 17.0 mg/dL Normal 7.0-18.0 [facility] Comment on above: Performed By: #### A 1C #### [facility] [address] [place] [address] Dr. Gin Chew Urea nitrogen/Creatinine [Mass ratio] 19.8 mg/mg Normal [facility] Comment on above: Performed By: #### A 1C #### [facility] [address] [place] [address] Dr. Gin Chew SED RATE WESTERGRENon 2022 SED RATE 8 mm/hr Normal <=30 [facility] Comment on above: Performed By: #### A 1C #### [facility] [address] [place] [address] Dr. Gin Chew CBC AUTO DIFFon 08-17-2022 BASO # 0.1 103/ul Normal 0.0-0.1 [facility] Comment on above: Performed By: #### B MP #### [facility] [address] [place] [address] Dr. Gin Chew Basophils/100 WBC (Bld) 0.7 % Normal 0.2-2.0 [facility] Comment on above: Performed By: #### B MP #### [facility] [address] [place] [address] Dr. Gin Chew EO # 0.3 103/ul Normal 0.0-0.7 [facility] Comment on above: Performed By: #### B MP #### [facility] [address] [place] [address] Dr. Gin Chew Eosinophils/100 WBC (Bld) 1.9 % Normal 0.9-7.0 [facility] Comment on above: Performed By: #### B MP #### [facility] [address] [place] [address] Dr. Gin Chew Erythrocyte distribution width (RBC) [Ratio] 12.9 % Normal 11.0-15.0 [facility] Comment on above: Performed By: #### B MP #### [facility] [address] [place] [address] Dr. Gin Chew Hematocrit (Bld) [Volume fraction] 42.9 % Normal 36.0-48.0 [facility] Comment on above: Performed By: #### B MP #### [facility] [address] [place] [address] Dr. Gin Chew Hemoglobin (Bld) [Mass/Vol] 14.3 g/dL Normal 12.0-16.0 [facility] Comment on above: Performed By: #### B MP #### [facility] [address] [place] [address] Dr. Gin Chew IG # 0.41 10e3/ul Critically high 0.00-0.03 [facility] Comment on above: Performed By: #### B MP #### [facility] [address] [place] [address] Dr. Gin Chew IG % 2.5 % Critically high 0.0-0.5 [facility] Comment on above: Performed By: #### B MP #### [facility] [address] [place] [address] Dr. Gin Chew LYMPH # 3.5 103/ul Normal 1.2-3.8 [facility] Comment on above: Performed By: #### B MP #### [facility] [address] [place] [address] Dr. Gin Chew Lymphocytes/100 WBC (Bld) 21.5 % Normal 20.5-60.0 [facility] Comment on above: Performed By: #### B MP #### [facility] [address] [place] [address] Dr. Gin Chew MANUAL DIFF REQ NO Normal [facility] Comment on above: Performed By: #### B MP #### [facility] [address] [place] [address] Dr. Gin Chew MCH (RBC) [Entitic mass] 30.9 pg Normal 26.7-34.0 [facility] Comment on above: Performed By: #### B MP #### [facility] [address] [address] [address] Gin Chew MCHC (RBC) [Mass/Vol] 33.3 g/dL Normal 29.9-35.2 [facility] Comment on above: Performed By: #### B MP #### [facility] [address] [address] [address] Gin Chew MCV (RBC) [Entitic vol] 92.7 fL Normal 81.0-99.0 [facility] Comment on above: Performed By: #### B MP #### [facility] [address] [address] [address] Gin Chew MONO # 1.0 103/ul Critically high 0.3-0.8 [facility] Comment on above: Performed By: #### B MP #### [facility] [address] [address] [address] Gin Chew Monocytes/100 WBC (Bld) 6.2 % Normal 1.7-12.0 [facility] Comment on above: Performed By: #### B MP #### [facility] [address] [place] [address] Dr. Gin Chew NEUT # 10.9 103/ul Critically high 1.4-6.5 [facility] Comment on above: Performed By: #### B MP #### [facility] [address] [address] [address] Gin Chew Neutrophils/100 WBC (Bld) 67.2 % Normal 43.0-75.0 [facility] Comment on above: Performed By: #### B MP #### [facility] [address] [address] [address] Gin Chew Platelet mean volume (Bld) [Entitic vol] 9.7 fL Normal 9.5-13.5 [facility] Comment on above: Performed By: #### B MP #### [facility] [address] [address] [address] Gin Chew PLT 424 103/ul Normal 150-450 [facility] Comment on above: Performed By: #### B MP #### [facility] [address] [place], [place] [address] Dr. Gin Chew RBC 4.63 106/ul Normal 4.20-5.40 [facility] Comment on above: Performed By: #### B MP #### [facility] [address] [place], [place] [address] Dr. Gin Chew WBC 16.2 103/ul Critically high 4.0-11.0 [facility] Comment on above: Performed By: #### B MP #### [facility] [address] [place], [place] [address] HEAD WO CONon [...] Date: 2022-08-17 18:16 Normal [facility] Covid-19 PCR (CVDTB)on 07-21 SARS-CoV-2 (COVID-19) RNA ARIADNA+probe Ql (Unsp spec) Not detected Normal NOT DETECTED [facility] Comment on above: Result Comment: This test is not yet approved or cleared by the [place] FDA. When there are no FDA-approved or cleared tests available, and other criteria are met, FDA can make tests available under an emergency access mechanism called an Emergency Use Authorization (EUA). The EUA for this test is supported by the [place] of [employer] and Human Service's (HHS's) declaration [...] By: #### A 1C #### [facility] [address] [place] [address] Dr. Gin Chew PROF CHEM 8 (BAS METB)on Anion gap [Moles/Vol] 13.8 mmol/L Normal [facility] Comment on above: Performed By: #### B MP #### [facility] [address] [place] [address] Dr. Gin Chew Calcium [Mass/Vol] 9.0 mg/dL Normal 8.5-10.1 [facility] Comment on above: Performed By: #### B MP #### [facility] [address] [place] [address] Dr. Gin Chew Chloride [Moles/Vol] 102 mmol/L Normal 98-107 [facility] Comment on above: Performed By: #### B MP #### [facility] [address] [place] [address] Dr. Gin Chew CO2 [Moles/Vol] 28.4 mmol/L Normal 21.0-32.0 [facility] Comment on above: Performed By: #### B MP #### [facility] [address] [place] [address] Dr. Gin Chew Creatinine [Mass/Vol] 0.93 mg/dL Normal 0.55-1.02 [facility] Comment on above: Performed By: #### B MP #### [facility] [address] [address] [address] Gin Chew EGFR-AF MOSOTHO >60 Normal >=60 [facility] Comment on above: Performed By: #### B MP #### [facility] [address] [address] [address] Gin Chew EGFR-NON AF MOSOTHO >60 Normal >=60 [facility] Comment on above: Performed By: #### B MP #### [facility] [address] [address] [address] Gin Chew Glucose [Mass/Vol] 133 mg/dL Critically high 74-106 [facility] Comment on above: Performed By: #### B MP #### [facility] [address] [address] [address] Gin Chew Potassium [Moles/Vol] 4.2 mmol/L Normal 3.5-5.1 [facility] Comment on above: Performed By: #### B MP #### [facility] [address] [address] [address] Gin Chew Sodium [Moles/Vol] 140 mmol/L Normal 136-145 [facility] Comment on above: Performed By: #### B MP #### [facility] [address] [address] [address] Gin Chew Urea nitrogen [Mass/Vol] 20.0 mg/dL Critically high 7.0-18.0 [facility] Comment on above: Performed By: #### B MP #### [facility] [address] [address] [address] Gin Chew Urea nitrogen/Creatinine [Mass ratio] 21.5 mg/mg Normal [facility] Comment on above: Performed By: #### B MP #### [facility] [address] [address] [address] Gin Chew SYMPTOMATIC COVID-19 ANTIGEN on 08-17-2022 EUA Statement SEE BELOW Normal [facility] Comment on above: Result Comment: This [...] By: #### A 1C #### [facility] [address] [place] [address] Dr. Gin Chew SARS-CoV-2 (COVID-19) RNA ARIADNA+probe Ql (Unsp spec) Negative Normal NEGATIVE [facility] Comment on above: Performed By: #### A 1C #### [facility] [address] [place] [address] Dr. Gin Chew CBC AUTO DIFFon 07-10-2022 BASO # 0.1 103/ul Normal 0.0-0.1 [facility] Comment on above: Performed By: #### B MP #### [facility] [address] [place] [address] Dr. Gin Chew Basophils/100 WBC (Bld) 1.0 % Normal 0.2-2.0 [facility] Comment on above: Performed By: #### B MP #### [facility] [address] [place] [address] Dr. Gin Chew EO # 0.5 103/ul Normal 0.0-0.7 [facility] Comment on above: Performed By: #### B MP #### [facility] [address] [place] [address] Dr. Gin Chew Eosinophils/100 WBC (Bld) 7.1 % Critically high 0.9-7.0 [facility] Comment on above: Performed By: #### B MP #### [facility] [address] [place] [address] Dr. Gin Chew Erythrocyte distribution width (RBC) [Ratio] 12.3 % Normal 11.0-15.0 [facility] Comment on above: Performed By: #### B MP #### [facility] [address] [place] [address] Dr. Gin Chew Hematocrit (Bld) [Volume fraction] 39.6 % Normal 36.0-48.0 [facility] Comment on above: Performed By: #### B MP #### [facility] [address] [place] [address] Dr. Gin Chew Hemoglobin (Bld) [Mass/Vol] 13.5 g/dL Normal 12.0-16.0 [facility] Comment on above: Performed By: #### B MP #### [facility] [address] [place] [address] Dr. Gin Chew IG # 0.03 10e3/ul Normal 0.00-0.03 [facility] Comment on above: Performed By: #### B MP #### [facility] [address] [place] [address] Dr. Gin Chew IG % 0.4 % Normal 0.0-0.5 [facility] Comment on above: Performed By: #### B MP #### [facility] [address] [place] [address] Dr. Gin Chew LYMPH # 2.4 103/ul Normal 1.2-3.8 [facility] Comment on above: Performed By: #### B MP #### [facility] [address] [place] [address] Dr. Gin Chew Lymphocytes/100 WBC (Bld) 33.7 % Normal 20.5-60.0 [facility] Comment on above: Performed By: #### B MP #### [facility] [address] [place] [address] Dr. Gin Chew MANUAL DIFF REQ NO Normal [facility] Comment on above: Performed By: #### B MP #### [facility] [address] [place] [address] Dr. Gin Chew MCH (RBC) [Entitic mass] 30.8 pg Normal 26.7-34.0 [facility] Comment on above: Performed By: #### B MP #### [facility] [address] [place] [address] Dr. Gin Chew MCHC (RBC) [Mass/Vol] 34.1 g/dL Normal 29.9-35.2 [facility] Comment on above: Performed By: #### B MP #### [facility] [address] [place] [address] Dr. Gin Chew MCV (RBC) [Entitic vol] 90.2 fL Normal 81.0-99.0 [facility] Comment on above: Performed By: #### B MP #### [facility] [address] [place] [address] Dr. Gin Chew MONO # 0.5 103/ul Normal 0.3-0.8 [facility] Comment on above: Performed By: #### B MP #### [facility] [address] [place] [address] Dr. Gin Chew Monocytes/100 WBC (Bld) 6.7 % Normal 1.7-12.0 [facility] Comment on above: Performed By: #### B MP #### [facility] [address] [place] [address] Dr. Gin Chew NEUT # 3.6 103/ul Normal 1.4-6.5 [facility] Comment on above: Performed By: #### B MP #### [facility] [address] [place] [address] Dr. Gin Chew Neutrophils/100 WBC (Bld) 51.1 % Normal 43.0-75.0 [facility] Comment on above: Performed By: #### B MP #### [facility] [address] [place] [address] Dr. Gin Chew Platelet mean volume (Bld) [Entitic vol] 9.6 fL Normal 9.5-13.5 [facility] Comment on above: Performed By: #### B MP #### [facility] [address] [address] [address] Gin Chew PLT 337 103/ul Normal 150-450 [facility] Comment on above: Performed By: #### B MP #### [facility] [address] [place] [address] Dr. Gin Chew RBC 4.39 106/ul Normal 4.20-5.40 [facility] Comment on above: Performed By: #### B MP #### [facility] [address] [address] [address] Gin Chew WBC 7.0 103/ul Normal 4.0-11.0 [facility] Comment on above: Performed By: #### B MP #### [facility] [address] [place] [address] Dr. Gin Chew CULTURE URINEon 07-10-2022 CULTURE URINE Culture Observations: MODERATE GROWTH OF MIXED GENITAL ELOINA. NO POTENTIAL PATHOGENS SEEN. Normal [facility] Comment on above: Performed By: #### A 1C #### [facility] [address] [place] [address] Dr. Gin Chew FREE T3on 07-10-2022 FREE T3 2.10 pg/mlL Critically low 2.18-3.98 [facility] Comment on above: Performed By: #### F T3, CMP, LIPID, TSH #### [facility] [address] [place] [address] Dr. Gin Chew FREE T4on 07-10-2022 Free T4 [Mass/Vol] 1.56 ng/dL Critically high 0.76-1.46 T [facility] Comment on above: Performed By: #### F T4, VITAD #### [facility] [address] [place] [address] Dr. Gin Chew GLYCOHEMOGLOBIN A1Con 2022 ADA RECOMMENDATION SEE BELOW Normal [facility] Comment on above: Result Comment: ADA RECOMMENDED LIMIT 4.0 - 6.0 ADA THERAPEUTIC TARGET < 7.0 ACTION SUGGESTED > 7.0 Performed By: #### A 1C #### [facility] [address] [place] [address] Dr. Gin Chew Glucose [Mass/Vol] 134 mg/dL Normal [facility] Comment on above: Performed By: #### A 1C #### [facility] [address] [address] [address] Gin Chew HbA1c (Bld) [Mass fraction] 6.3 % Critically high 4.5-6.2 [facility] Comment on above: Performed By: #### A 1C #### [facility] [address] [address] [address] Gin Chew LIPID PROFILEon 07-10-2022 CHOL-HDL RATIO NORM SEE BELOW Normal [facility] Comment on above: Result Comment: 3.3 - 4.4 LOW RISK 4.4 - 7.1 AVERAGE RISK 7.1 - 11.0 MODERATE RISK >11.0 HIGH RISK Performed By: #### F T3, CMP, LIPID, TSH #### [facility] [address] [address] [address] Gin Chew Cholesterol [Mass/Vol] 190 mg/dL Normal <=200 [facility] Comment on above: Performed By: #### F T3, CMP, LIPID, TSH #### [facility] [address] [address] [address] Gin Chew Cholesterol in HDL [Mass/Vol] 76 mg/dL Critically high 40-60 [facility] Comment on above: Performed By: #### F T3, CMP, LIPID, TSH #### [facility] [address] [address] [address] Gin Chew Cholesterol in LDL [Mass/Vol] 98.4 mg/dL Normal [facility] Comment on above: Performed By: #### F T3, CMP, LIPID, TSH #### [facility] [address] [address] [address] Gin Chew Cholesterol.total/Haylie sterol in HDL [Mass ratio] 2.5 {ratio} Normal [facility] Comment on above: Performed By: #### F T3, CMP, LIPID, TSH #### [facility] [address] [address] [address] Gin Chew HDL NORMAL > or = 60 mg/dl - LOW CARDIOVASCULAR RISK <40 mg/dl - HIGH CARDIOVASCULAR RISK Normal [facility] Comment on above: Performed By: #### F T3, CMP, LIPID, TSH #### [facility] [address] [address] [address] Gin Chew LDL CALC NORMAL SEE BELOW Normal [facility] Comment on above: Result Comment: <100 mg/dl OPTIMAL 100 - 129 mg/dl NEAR OR ABOVE OPTIMAL 130 - 159 mg/dl BORDERLINE HIGH 160 - 189 mg/dl HIGH >190 mg/dl VERY HIGH Performed By: #### F T3, CMP, LIPID, TSH #### [facility] [address] [address] [address] Gin Chew Triglyceride [Mass/Vol] 78 mg/dL Normal <=150 [facility] Comment on above: Performed By: #### F T3, CMP, LIPID, TSH #### [facility] [address] [place] [address] Dr. Gin Chew VLDL CALC 15.6 mg/dL Normal [facility] Comment on above: Performed By: #### F T3, CMP, LIPID, TSH #### [facility] [address] [place] [address] Dr. Gin Chew MICROALBUMIN, RAND URon 06-22 mALB 1.7 mg/L Normal <=30.0 [facility] Comment on above: Performed By: #### A 1C #### [facility] [address] [place] [address] Dr. Gin Chew PROF 14(COMP METB)on 023 Albumin [Mass/Vol] 4.0 g/dL Normal 3.4-5.0 [facility] Comment on above: Performed By: #### F T3, CMP, LIPID, TSH #### [facility] [address] [place] [address] Dr. Gin Chew Albumin/Globulin [Mass ratio] 1.2 {ratio} Normal [facility] Comment on above: Performed By: #### F T3, CMP, LIPID, TSH #### [facility] [address] [address] [address] Gin Chew ALP [Catalytic activity/Vol] 67 U/L Normal 46-116 [facility] Comment on above: Performed By: #### F T3, CMP, LIPID, TSH #### [facility] [address] [address] [address] Gin Chew ALT [Catalytic activity/Vol] 25 U/L Normal 14-59 [facility] Comment on above: Performed By: #### F T3, CMP, LIPID, TSH #### [facility] [address] [place] [address] Dr. Gin Chew Anion gap [Moles/Vol] 12.2 mmol/L Normal [facility] Comment on above: Performed By: #### F T3, CMP, LIPID, TSH #### [facility] [address] [place] [address] Dr. Gin Chew AST [Catalytic activity/Vol] 20 U/L Normal 15-37 [facility] Comment on above: Performed By: #### F T3, CMP, LIPID, TSH #### [facility] [address] [place] [address] Dr. Gin Chew Bilirubin [Mass/Vol] 0.4 mg/dL Normal 0.2-1.0 [facility] Comment on above: Performed By: #### F T3, CMP, LIPID, TSH #### [facility] [address] [place] [address] Dr. Gin Chew Calcium [Mass/Vol] 9.6 mg/dL Normal 8.5-10.1 [facility] Comment on above: Performed By: #### F T3, CMP, LIPID, TSH #### [facility] [address] [place] [address] Dr. Gin Chew Chloride [Moles/Vol] 103 mmol/L Normal 98-107 [facility] Comment on above: Performed By: #### F T3, CMP, LIPID, TSH #### [facility] [address] [place] [address] Dr. Gin Chew CO2 [Moles/Vol] 28.1 mmol/L Normal 21.0-32.0 [facility] Comment on above: Performed By: #### F T3, CMP, LIPID, TSH #### [facility] [address] [address] [address] Gin Chew Creatinine [Mass/Vol] 0.64 mg/dL Normal 0.55-1.02 [facility] Comment on above: Performed By: #### F T3, CMP, LIPID, TSH #### [facility] [address] [address] [address] Gin Chew EGFR-AF MOSOTHO >60 Normal >=60 [facility] Comment on above: Performed By: #### F T3, CMP, LIPID, TSH #### [facility] [address] [address] [address] Gin Chew EGFR-NON AF [place]HO >60 Normal >=60 [facility] Comment on above: Performed By: #### F T3, CMP, LIPID, TSH #### [facility] [address] [address] [address] Gin Chew Globulin (S) [Mass/Vol] 3.3 g/dL Normal [facility] Comment on above: Performed By: #### F T3, CMP, LIPID, TSH #### [facility] [address] [address] [address] Gin Chew Glucose [Mass/Vol] 98 mg/dL Normal 74-106 [facility] Comment on above: Performed By: #### F T3, CMP, LIPID, TSH #### [facility] [address] [address] [address] Gin Chew Potassium [Moles/Vol] 4.3 mmol/L Normal 3.5-5.1 [facility] Comment on above: Performed By: #### F T3, CMP, LIPID, TSH #### [facility] [address] [address] [address] Gin Chew Protein [Mass/Vol] 7.3 g/dL Normal 6.4-8.2 [facility] Comment on above: Performed By: #### F T3, CMP, LIPID, TSH #### [facility] [address] [address] [address] Gin Chew Sodium [Moles/Vol] 139 mmol/L Normal 136-145 [facility] Comment on above: Performed By: #### F T3, CMP, LIPID, TSH #### [facility] [address] [address] [address] Gin Chew Urea nitrogen [Mass/Vol] 21.0 mg/dL Critically high 7.0-18.0 [facility] Comment on above: Performed By: #### F T3, CMP, LIPID, TSH #### [facility] [address] [place] [address] Dr. Gin Chew Urea nitrogen/Creatinine [Mass ratio] 32.8 mg/mg Normal [facility] Comment on above: Performed By: #### F T3, CMP, LIPID, TSH #### [facility] [address] [place] [address] Dr. Gin Chew TSHon 07-10-2022 TSH 2.200 uIU/mL Normal 0.358-3.740 [facility] Comment on above: Performed By: #### F T3, CMP, LIPID, TSH #### [facility] [address] [place] [address] Dr. Gin Chew UA RANDOM W/MICROSCOPICon BACTERIA NONE SEEN Normal NONE SEEN [facility] Comment on above: Performed By: #### F T3, CMP, LIPID, TSH #### [facility] [address] [place] [address] Dr. Gin Chew Bilirubin Ql (U) Negative Normal NEGATIVE [facility] Comment on above: Performed By: #### F T3, CMP, LIPID, TSH #### [facility] [address] [place] [address] Dr. Gin Chew CAST NONE SEEN Normal NONE SEEN [facility] Comment on above: Performed By: #### F T3, CMP, LIPID, TSH #### [facility] [address] [place] [address] Dr. Gin Chew Clarity (U) CLEAR Normal CLEAR [facility] Comment on above: Performed By: #### F T3, CMP, LIPID, TSH #### [facility] [address] [place] [address] Dr. Gin Chew Color (U) LT. YELLOW Normal YELLOW [facility] Comment on above: Performed By: #### F T3, CMP, LIPID, TSH #### [facility] [address] [address] [address] Gin Chew Crystals LM Nom (Urine sed) NONE SEEN Normal NONE SEEN [facility] Comment on above: Performed By: #### F T3, CMP, LIPID, TSH #### [facility] [address] [address] [address] Gin Chew Epithelial cells LM Ql (Urine sed) FEW Abnormal NONE SEEN /RARE [facility] Comment on above: Performed By: #### F T3, CMP, LIPID, TSH #### [facility] [address] [address] [address] Gin Chew Glucose Ql (U) Negative Normal NEGATIVE [facility] Comment on above: Performed By: #### F T3, CMP, LIPID, TSH #### [facility] [address] [address] [address] Gin Chew Hemoglobin Ql (U) Negative Normal NEGATIVE [facility] Comment on above: Performed By: #### F T3, CMP, LIPID, TSH #### [facility] [address] [address] [address] Gin Chew Ketones Ql (U) Negative Normal NEGATIVE [facility] Comment on above: Performed By: #### F T3, CMP, LIPID, TSH #### [facility] [address] [address] [address] Gin Chew LEUKOCYTES Negative Normal NEGATIVE [facility] Comment on above: Performed By: #### F T3, CMP, LIPID, TSH #### [facility] [address] [address] [address] Gin Chew MUCOUS NONE SEEN Normal NONE SEEN [facility] Comment on above: Performed By: #### F T3, CMP, LIPID, TSH #### [facility] [address] [address] [address] Gin Chew Nitrite Ql (U) Negative Normal NEGATIVE [facility] Comment on above: Performed By: #### F T3, CMP, LIPID, TSH #### [facility] [address] [address] [address] Gin Chew pH (U) 5.5 [pH] Normal 5-9 [facility] Comment on above: Performed By: #### F T3, CMP, LIPID, TSH #### [facility] [address] [place] [address] Dr. Gin Chew RBC NONE SEEN Abnormal 0-2 [facility] Comment on above: Performed By: #### F T3, CMP, LIPID, TSH #### [facility] [address] [address] [address] Gin Chew SPEC GRAVITY 1.025 Normal 1.005-<=1.025 [facility] Comment on above: Performed By: #### F T3, CMP, LIPID, TSH #### [facility] [address] [place] [address] Dr. Gin Chew UA PROTEIN Negative Normal NEGATIVE/ TRACE [facility] Comment on above: Performed By: #### F T3, CMP, LIPID, TSH #### [facility] [address] [place] [address] Dr. Gin Chew Urobilinogen Qn (U) 0.2 {David'U}/dL Normal 0.2 - 1. 0 [facility] Comment on above: Performed By: #### F T3, CMP, LIPID, TSH #### [facility] [address] [place] [address] Dr. Gin Chew WBC NONE SEEN Normal NONE SEEN [facility] Comment on above: Performed By: #### F T3, CMP, LIPID, TSH #### [facility] [address] [place] [address] Dr. Gin Chew VITAMIN D 25 OHon 07-10-2022 VIT D 25-OH 30.1 ng/mL Normal [facility] Comment on above: Performed By: #### F T4, VITAD #### [facility] [address] [place] [address] Dr. Gin Chew VIT D RANGES SEE BELOW Normal [facility] Comment on above: Result Comment: <20 ng/mL Vit D deficient 20 - <30 ng/mL Vit D insufficient 30 - 100 ng/mL Vit D sufficient >100 ng/mL Potential Toxicity Performed By: #### F T4, VITAD #### [facility] [address] [address] [address] Gin Chew FREE T3on 04-05-2022 FREE T3 2.83 pg/mlL Normal 2.18-3.98 [facility] Comment on above: Performed By: #### B MP #### [facility] [address] [address] [address] Gin Chew FREE T4on 04-05-2022 Free T4 [Mass/Vol] 1.74 ng/dL Critically high 0.76-1.46 T [facility] Comment on above: Performed By: #### F T4 #### [facility] [address] [place] [address] Dr. Gin Chew TSHon 04-05-2022 TSH 0.235 uIU/mL Critically low 0.358-3.740 [facility] Comment on above: Performed By: #### B MP #### [facility] [address] [place] [address] Dr. Gin Chew XR CHEST 2 Von [...] by: JEFF PATHAK Date: 2021-11-29 21:03 Normal [facility] CNPNon 10-13-2021 CNPN Telephone (ENDOSO) CANELO PATHAK ([id number]) 1965 F Date Time Provider Department 10/13/21 [...] Date Reviewed: 10/13/2021 Reviewed by: Anila Jimenez APRN.[employer] - Fully Assessed Reason for Visit: Appointment [...] - mometasone furoate(NASONEX 50 MCG/ACTUATION SPRAY) [place] twice in each nostril once daily. - [...] Status:Closed by ANILA JIMENEZ on 10/13/21 Normal [facility] CBC W Auto Differential pane l (Bld)on 10-07-2021 Basophils (Bld) [#/Vol] 0.07 10*3/uL Normal <0.11 [facility] Comment on above: Order Comment: Speci men Type: BLOOD SPECIMENOrdering Facility: [facility] Address: [address] [place] [address] Performed By: #### C MP, HBA1C, FREET3, FT4, TSH #### [address] [place] [address] Basophils/100 WBC (Bld) 0.7 % Normal C [facility] Comment on above: Order Comment: Speci men Type: BLOOD SPECIMENOrdering Facility: [facility] Address: [address] [place] [address] Performed By: #### C MP, HBA1C, FREET3, FT4, TSH #### [address] [place] [address] Differential cell count method Nom (Bld) Auto Normal [facility] Comment on above: Order Comment: Speci men Type: BLOOD SPECIMENOrdering Facility: [facility] Address: [address] [place] [address] Performed By: #### C MP, HBA1C, FREET3, FT4, TSH #### [address] [place] [address] Eosinophils (Bld) [#/Vol] 0.29 10*3/uL Normal <0.46 [facility] Comment on above: Order Comment: Speci men Type: BLOOD SPECIMENOrdering Facility: [facility] Address: [address] [place] [address] Performed By: #### C MP, HBA1C, FREET3, FT4, TSH #### [place] [phone] Eosinophils/100 WBC (Bld) 3.0 % Normal [facility] Comment on above: Order Comment: Speci men Type: BLOOD SPECIMENOrdering Facility: [facility] Address: [address] [place] [address] Performed By: #### C MP, HBA1C, FREET3, FT4, TSH #### [place] [phone] Erythrocyte distribution width (RBC) [Ratio] 12.3 % Normal 11.5-15.0 [facility] Comment on above: Order Comment: Speci men Type: BLOOD SPECIMENOrdering Facility: [facility] Address: [address] [place] [address] Performed By: #### C MP, HBA1C, FREET3, FT4, TSH #### [place] [address] Hematocrit (Bld) [Volume fraction] 43.4 % Normal 36.0-46.0 [facility] Comment on above: Order Comment: Speci men Type: BLOOD SPECIMENOrdering Facility: [facility] Address: [address] [place] [address] Performed By: #### C MP, HBA1C, FREET3, FT4, TSH #### [place] [address] Hemoglobin (Bld) [Mass/Vol] 14.5 g/dL Normal 11.5-15.5 [facility] Comment on above: Order Comment: Speci men Type: BLOOD SPECIMENOrdering Facility: [facility] Address: [address] [place] [address] Performed By: #### C MP, HBA1C, FREET3, FT4, TSH #### [place] [address] IMMATURE GRAN % 0.4 % Normal [facility] Comment on above: Order Comment: Speci men Type: BLOOD SPECIMENOrdering Facility: [facility] Address: [address] [place] [address] Performed By: #### C MP, HBA1C, FREET3, FT4, TSH #### [place] [address] IMMATURE GRAN ABS 0.04 k/uL Normal <0.10 [facility] Comment on above: Order Comment: Speci men Type: BLOOD SPECIMENOrdering Facility: [facility] Address: [address] [place] [address] Performed By: #### C MP, HBA1C, FREET3, FT4, TSH #### [place] [address] Lymphocytes (Bld) [#/Vol] 2.21 10*3/uL Normal 1.00-4.00 [facility] Comment on above: Order Comment: Speci men Type: BLOOD SPECIMENOrdering Facility: [facility] Address: [address] [place] [address] Performed By: #### C MP, HBA1C, FREET3, FT4, TSH #### [place] [address] Lymphocytes/100 WBC (Bld) 22.6 % Normal [facility] Comment on above: Order Comment: Speci men Type: BLOOD SPECIMENOrdering Facility: [facility] Address: [address] [place] [address] Performed By: #### C MP, HBA1C, FREET3, FT4, TSH #### [place] [id number] MCH (RBC) [Entitic mass] 30.7 pg Normal 26.0-34.0 [facility] Comment on above: Order Comment: Speci men Type: BLOOD SPECIMENOrdering Facility: [facility] Address: [address] [place], [place] [id number] Performed By: #### C MP, HBA1C, FREET3, FT4, TSH #### [place] [address] MCHC (RBC) [Mass/Vol] 33.4 g/dL Normal 30.5-36.0 [facility] Comment on above: Order Comment: Speci men Type: BLOOD SPECIMENOrdering Facility: [facility] Address: [address] [place] [address] Performed By: #### C MP, HBA1C, FREET3, FT4, TSH #### [place] [address] MCV (RBC) [Entitic vol] 91.9 fL Normal 80.0-100.0 [facility] Comment on above: Order Comment: Speci men Type: BLOOD SPECIMENOrdering Facility: [facility] Address: [address] [place] [address] Performed By: #### C MP, HBA1C, FREET3, FT4, TSH #### [place] [address] Monocytes (Bld) [#/Vol] 0.60 10*3/uL Normal <0.87 [facility] Comment on above: Order Comment: Speci men Type: BLOOD SPECIMENOrdering Facility: [facility] Address: [address] [place], [place] [id number] Performed By: #### C MP, HBA1C, FREET3, FT4, TSH #### [place] [address] Monocytes/100 WBC (Bld) 6.1 % Normal [facility] Comment on above: Order Comment: Speci men Type: BLOOD SPECIMENOrdering Facility: [facility] Address: [address] [place] [address] Performed By: #### C MP, HBA1C, FREET3, FT4, TSH #### [place] [address] Neutrophils (Bld) [#/Vol] 6.57 10*3/uL Normal 1.45-7.50 [facility] [facility] Comment on above: Order Comment: Speci men Type: BLOOD SPECIMENOrdering Facility: [facility] Address: [address] [place] [address] Performed By: #### C MP, HBA1C, FREET3, FT4, TSH #### [place] [address] Neutrophils/100 WBC (Bld) 67.2 % Normal [facility] Comment on above: Order Comment: Speci men Type: BLOOD SPECIMENOrdering Facility: [facility] Address: [address] [place] [address] Performed By: #### C MP, HBA1C, FREET3, FT4, TSH #### [place] [address] Nucleated RBC (Bld) [#/Vol] 10*3/uL Normal <0.01 [facility] Comment on above: Order Comment: Speci men Type: BLOOD SPECIMENOrdering Facility: [facility] Address: [address] [place] [address] Performed By: #### C MP, HBA1C, FREET3, FT4, TSH #### [place] [address] Nucleated RBC/100 WBC (Bld) [Ratio] 0.0 /100 WBC Normal [facility] Comment on above: Order Comment: Speci men Type: BLOOD SPECIMENOrdering Facility: [facility] Address: [address] [place] [address] Performed By: #### C MP, HBA1C, FREET3, FT4, TSH #### [place] [address] Platelet mean volume (Bld) [Entitic vol] 10.4 fL Normal 9.0-12.7 [facility] Comment on above: Order Comment: Speci men Type: BLOOD SPECIMENOrdering Facility: [facility] Address: [address] [place], [place] [id number] Performed By: #### C MP, HBA1C, FREET3, FT4, TSH #### [place] [address] Platelets (Bld) [#/Vol] 371 10*3/uL Normal 150-400 [facility] Comment on above: Order Comment: Speci men Type: BLOOD SPECIMENOrdering Facility: [facility] Address: [address] [place] [address] Performed By: #### C MP, HBA1C, FREET3, FT4, TSH #### [place] [address] RBC (Bld) [#/Vol] 4.72 10*6/uL Normal 3.90-5.20 [facility] Comment on above: Order Comment: Speci men Type: BLOOD SPECIMENOrdering Facility: [facility] Address: [address] [place], [place] [id number] Performed By: #### C MP, HBA1C, FREET3, FT4, TSH #### [place] [address] WBC (Bld) [#/Vol] 9.78 10*3/uL Normal 3.70-11.00 [facility] Comment on above: Order Comment: Speci men Type: BLOOD SPECIMENOrdering Facility: [facility] Address: [address] [place], [place] [id number] Performed By: #### C MP, HBA1C, FREET3, FT4, TSH #### [place] [address] Abs Immature Gran 0.04 k/uL <0.10 k/uL [facility] Basophils (Bld) [#/Vol] 0.07 10*3/uL <0.11 k/uL [facility] Basophils/100 WBC (Bld) 0.7 % [facility] Differential cell count method Nom (Bld) Auto [facility] Eosinophils (Bld) [#/Vol] 0.29 10*3/uL <0.46 k/uL [facility] Eosinophils/100 WBC (Bld) 3.0 % [facility] Erythrocyte distribution width (RBC) [Ratio] 12.3 % 11.5 - 15.0 % [facility] Hematocrit (Bld) [Volume fraction] 43.4 % 36.0 - 46.0 % [facility] Hemoglobin (Bld) [Mass/Vol] 14.5 g/dL 11.5 - 15.5 g/dL [facility] Immature Gran % 0.4 % [facility] Lymphocytes (Bld) [#/Vol] 2.21 10*3/uL 1.00 - 4.00 k/uL [facility] Lymphocytes/100 WBC (Bld) 22.6 % [facility] MCH (RBC) [Entitic mass] 30.7 pg 26.0 - 34.0 pg [facility] MCHC (RBC) [Mass/Vol] 33.4 g/dL 30.5 - 36.0 g/dL [facility] MCV (RBC) [Entitic vol] 91.9 fL 80.0 - 100.0 fL [facility] Monocytes (Bld) [#/Vol] 0.60 10*3/uL <0.87 k/uL [facility] Monocytes/100 WBC (Bld) 6.1 % [facility] Neutrophils (Bld) [#/Vol] 6.57 10*3/uL 1.45 - 7.50 k/uL [facility] Neutrophils/100 WBC (Bld) 67.2 % [facility] Nucleated RBC (Bld) [#/Vol] 10*3/uL <0.01 k/uL [facility] Nucleated RBC/100 WBC (Bld) [Ratio] 0.0 /100 WBC [facility] Platelet mean volume (Bld) [Entitic vol] 10.4 fL 9.0 - 12.7 fL [facility] Platelets (Bld) [#/Vol] 371 10*3/uL 150 - 400 k/uL [facility] RBC (Bld) [#/Vol] 4.72 10*6/uL 3.90 - 5.2 0 m/uL [facility] WBC (Bld) [#/Vol] 9.78 10*3/uL 3.70 - 11. 00 k/uL [facility] CNOVon 10-07-2021 CNOV Office Visit (RHEUMN) YULIA PATHAKIA ([id number]) 1965 F Date Time Provider Department 10/07/21 [...] mcg (5,000 unit) cap - Vitamin D [employer] ([employer]) Take 1 capsule by mouth daily with food. - montelukast (SINGULAIR) 10 mg tablet Take 10 mg by mouth daily at bedtime. - MULTIVIT-MINERALS/FE RROUS GLUC (CENTRAM-CARE ORAL) Take by mouth twice daily. - esomeprazole mag trihydrate(NEXIUM 40 MG CAP) Take one(1) capsule daily. - mometasone furoate(NASONEX 50 MCG/ACTUATION SPRAY) [place] twice in each nostril once daily. - [...] [F41.1] Order(s):CBC + DIFF [SQCBCDIF] Order #: [id number] FUTURE PROTEIN ELECTROPHORESIS SERUM W/INTERP [SQSEPG] Order #: [id number] FUTURE venlafaxine ER (EFFEXOR XR) 37.5 mg 24 hr capsuletake one a day, if tolerated after two weeks increase to twoDisp: 60 capsuleRfl: 3 CO (more content not included)... Normal [facility] Comprehensive metabolic 2000 panelon 10-07-2021 Albumin [Mass/Vol] 4.8 g/dL Normal 3.9-4.9 [facility] Comment on above: Order Comment: Speci men Type: BLOOD SPECIMENOrdering Facility: [facility] Address: [address] [place] [id number] Performed By: #### C MP, HBA1C, FREET3, FT4, TSH #### [place] [address] ALP [Catalytic activity/Vol] 72 U/L Normal 34-123 [facility] Comment on above: Order Comment: Speci men Type: BLOOD SPECIMENOrdering Facility: [facility] Address: [address] [place], [place] [id number] Performed By: #### C MP, HBA1C, FREET3, FT4, TSH #### [place] [address] ALT [Catalytic activity/Vol] 24 U/L Normal 7-38 [facility] Comment on above: Order Comment: Speci men Type: BLOOD SPECIMENOrdering Facility: [facility] Address: [address] [place] [address] Performed By: #### C MP, HBA1C, FREET3, FT4, TSH #### [place] [address] Anion gap [Moles/Vol] 11 mmol/L Normal 9-18 [facility] Comment on above: Order Comment: Speci men Type: BLOOD SPECIMENOrdering Facility: [facility] Address: [address] [place] [address] Performed By: #### C MP, HBA1C, FREET3, FT4, TSH #### [place] [address] AST [Catalytic activity/Vol] 17 U/L Normal 13-35 [facility] Comment on above: Order Comment: Speci men Type: BLOOD SPECIMENOrdering Facility: [facility] Address: [address] [place] [address] Performed By: #### C MP, HBA1C, FREET3, FT4, TSH #### [place] [address] Bilirubin [Mass/Vol] 0.5 mg/dL Normal 0.2-1.3 [facility] Comment on above: Order Comment: Speci men Type: BLOOD SPECIMENOrdering Facility: [facility] Address: [address] [place], [place] [id number] Performed By: #### C MP, HBA1C, FREET3, FT4, TSH #### [place] [address] Calcium [Mass/Vol] 10.3 mg/dL High 8.5-10.2 [facility] Comment on above: Order Comment: Speci men Type: BLOOD SPECIMENOrdering Facility: [facility] Address: [address] [place], [place] [id number] Performed By: #### C MP, HBA1C, FREET3, FT4, TSH #### [place] [address] Chloride [Moles/Vol] 100 mmol/L Normal 97-105 [facility] Comment on above: Order Comment: Speci men Type: BLOOD SPECIMENOrdering Facility: [facility] Address: [address] [place] [address] Performed By: #### C MP, HBA1C, FREET3, FT4, TSH #### [place] [address] CO2 [Moles/Vol] 28 mmol/L Normal 22-30 [facility] Comment on above: Order Comment: Speci men Type: BLOOD SPECIMENOrdering Facility: [facility] Address: [address] [place], [place] [id number] Performed By: #### C MP, HBA1C, FREET3, FT4, TSH #### [place] [address] Creatinine [Mass/Vol] 0.70 mg/dL Normal 0.58-0.96 [facility] Comment on above: Order Comment: Speci men Type: BLOOD SPECIMENOrdering Facility: [facility] Address: [address] [place], [place] [id number] Performed By: #### C MP, HBA1C, FREET3, FT4, TSH #### [place] [address] ESTIMATED GLOMERULAR FILTRATION RATE 103 mL/min/1.73m??? Normal >=60 [facility] Comment on above: Order Comment: Pancho hayes Type: BLOOD SPECIMENOrdering Facility: [facility] Address: [address] [place] [address] Result Comment: [place] mated Glomerular Filtration [...] C MP, HBA1C, FREET3, FT4, TSH #### [place] [address] Glucose [Mass/Vol] 124 mg/dL High 74-99 [facility] Comment on above: Order Comment: Pancho hayes Type: BLOOD SPECIMENOrdering Facility: [facility] Address: [address] [place] [address] Result Comment: The [place] Diabetes Association (ADA) provides guidance for cutoff [...] Standards of Medical Care in Diabetes 2016, [place] Diabetes Association. Diabetes Care. 2016.39(Suppl 1). Performed By: #### C MP, HBA1C, FREET3, FT4, TSH #### [facility] [employer] [address] [place], [place] [id number] Potassium [Moles/Vol] 4.1 mmol/L Normal 3.7-5.1 [facility] Comment on above: Order Comment: Speci men Type: BLOOD SPECIMENOrdering Facility: [facility] Address: [address] [place] [address] Performed By: #### C MP, HBA1C, FREET3, FT4, TSH #### [place] [address] Protein [Mass/Vol] 7.3 g/dL Normal 6.3-8.0 [facility] Comment on above: Order Comment: Speci men Type: BLOOD SPECIMENOrdering Facility: [facility] Address: [address] [place] [address] Performed By: #### C MP, HBA1C, FREET3, FT4, TSH #### [place] [address] Sodium [Moles/Vol] 139 mmol/L Normal 136-144 [facility] Comment on above: Order Comment: Speci men Type: BLOOD SPECIMENOrdering Facility: [facility] Address: [address] [place] [address] Performed By: #### C MP, HBA1C, FREET3, FT4, TSH #### [place] [address] Urea nitrogen [Mass/Vol] 18 mg/dL Normal 7-21 [facility] Comment on above: Order Comment: Speci men Type: BLOOD SPECIMENOrdering Facility: [facility] Address: [address] [place] [address] Performed By: #### C MP, HBA1C, FREET3, FT4, TSH #### [place] [address] HGB A1Con 10-07-2021 Average glucose Estimated from glycated hemoglobin (Bld) [Mass/Vol] 160 mg/dL Normal [facility] Comment on above: Order Comment: Speci men Type: BLOOD SPECIMENOrdering Facility: [facility] Address: [address] [place] [address] Result Comment: eAG: (Estimated average glucose) is a calculated value from HgbA1c and is technical account representative of the average blood glucose level in the last 2-3 month period. Performed By: #### C MP, HBA1C, FREET3, FT4, TSH #### [place] [address] HbA1c (Bld) [Mass fraction] 7.2 % High 4.3-5.6 [facility] Comment on above: Order Comment: Pancho hayes Type: BLOOD SPECIMENOrdering Facility: [facility] Address: [address] [place] [address] Result Comment: [place] Diabetes Association guidelines indicate that patients with HgbA1c in the range 5.7-6.4% are at increased risk for development of diabetes, and intervention by lifestyle modification may be beneficial. HgbA1c greater or equal to 6.5% is considered diagnostic of diabetes. Performed By: #### C MP, HBA1C, FREET3, FT4, TSH #### [place] [address] PROTEIN ELECTROPHORESIS SERU M (P)on 10-07-2021 Albumin [Mass/Vol] 4.18 g/dL Normal 3.37-4.23 [facility] Comment on above: Order Comment: Pancho hayes Type: BLOOD SPECIMENOrdering Facility: [facility] Address: [address] [place] [address] Performed By: #### C MP, HBA1C, FREET3, FT4, TSH #### [place] [address] Alpha 1 globulin Elph [Mass/Vol] 0.24 g/dL Normal 0.18-0.31 [facility] Comment on above: Order Comment: Pancho hayes Type: BLOOD SPECIMENOrdering Facility: [facility] Address: [address] [place], [place] [id number] Performed By: #### C MP, HBA1C, FREET3, FT4, TSH #### [place] [address] Alpha 2 globulin Elph [Mass/Vol] 0.83 g/dL Normal 0.52-0.97 [facility] Comment on above: Order Comment: Speci men Type: BLOOD SPECIMENOrdering Facility: [facility] Address: [address] [place] [address] Performed By: #### C MP, HBA1C, FREET3, FT4, TSH #### [place] [address] Beta globulin Elph [Mass/Vol] 1.21 g/dL Normal 0.84-1.36 [facility] Comment on above: Order Comment: Speci men Type: BLOOD SPECIMENOrdering Facility: [facility] Address: [address] [place] [address] Performed By: #### C MP, HBA1C, FREET3, FT4, TSH #### [place] [address] Gamma globulin Elph (Body fld) [Mass fraction] 0.74 g/dL Normal 0.70-1.44 [facility] Comment on above: Order Comment: Speci men Type: BLOOD SPECIMENOrdering Facility: [facility] Address: [address] [place] [address] Performed By: #### C MP, HBA1C, FREET3, FT4, TSH #### [place] [address] M-PROTEIN LOCATION Normal [facility] Comment on above: Order Comment: Speci men Type: BLOOD SPECIMENOrdering Facility: [facility] Address: [address] [place] [address] Result Comment: Not Applicable. Performed By: #### C MP, HBA1C, FREET3, FT4, TSH #### [place] [address] Protein Fractions [Interp] No definitive M protein is identified on protein electrophoresis. Normal No definitive M protein is identified on protein electrophores is. [facility] Comment on above: Order Comment: Speci men Type: BLOOD SPECIMENOrdering Facility: [facility] Address: [address] [address] Performed By: #### C MP, HBA1C, FREET3, FT4, TSH #### [place] [address] Protein.monoclonal Elph [Mass/Vol] 0.00 g/dL Normal <=0.00 [facility] Comment on above: Order Comment: Speci men Type: BLOOD SPECIMENOrdering Facility: [facility] Address: [address] [place] [address] Performed By: #### C MP, HBA1C, FREET3, FT4, TSH #### [place] [address] SPE STAFF REVIEW Reviewed by Ginette Doyle MD [facility] Comment on above: Order Comment: Speci men Type: BLOOD SPECIMENOrdering Facility: [facility] Address: [address] [place] [address] Performed By: #### C MP, HBA1C, FREET3, FT4, TSH #### [place] [address] Prot SerPl-mCncon 10-07-2021 Protein [Mass/Vol] 7.2 g/dL Normal 6.3-8.0 [facility] Comment on above: Order Comment: Speci men Type: BLOOD SPECIMEN [facility] Address: [address] [place] [address] Performed By: #### 2 885-2 #### [facility] CLIA [id number] [address] [place], [place] [address] [id number] [place] [address] [place] T3 FREE BLDon 10-07-2021 Free T3 [Mass/Vol] 3.1 pg/mL Normal 2.3-4.1 [facility] Comment on above: Order Comment: Speci men Type: BLOOD SPECIMENOrdering Facility: [facility] Address: [address] [place] [address] Performed By: #### C MP, HBA1C, FREET3, FT4, TSH #### [facility] [address] [place] [address] T4 FREE/FREE THYROXon 2021 Free T4 [Mass/Vol] 2.5 ng/dL High 0.9-1.7 [facility] Comment on above: Order Comment: Speci men Type: BLOOD SPECIMENOrdering Facility: [facility] Address: [address] [place] [address] Performed By: #### C MP, HBA1C, FREET3, FT4, TSH #### [place] [address] TSH SerPl-aCncon 10-07-2021 TSH Qn 0.228 m[IU]/L Low 0.270-4.200 [facility] Comment on above: Order Comment: Speci men Type: BLOOD SPECIMENOrdering Facility: [facility] Address: [address] [place] [address] Performed By: #### C MP, HBA1C, FREET3, FT4, TSH #### [facility] [address] [place] [address] CNPNon 10-03-2021 CNPN Telephone (ENDOMN) CANELO PATHAK ([id number]) 1965 F Date Time Provider Department 10/03/21 ASAD ANSARI During your visit today, we recorded the following information about you: Renea Mcfarland [employer] 10/03/2021 3:05 PM Addendum Patient called in [...] Fully Assessed Reason for Visit: Lab Orders [1688] Primary Visit Diagnosis:Acquired hypothyroidism [E03.9] Other Visit Diagnosis:Controlled type 2 diabetes mellitus without complication, without long-term current use of insulin (HCC) [E11.9] Order(s):TSH BLD [SQTSH] Order #: [id number] FUTURE T4 FREE/FREE THYROX [SQFT4] Order #: [id number] FUTURE T3 FREE BLD [SQFREET3] Order #: [id number] FUTURE COMP METABOLIC PANEL [SQCMP] Order #: [id number] FUTURE HGB A1C [QVTCL7T] Order #: [id number] FUTURE Prescriptions as of 10/05/2021 - metFORMIN ER (GLUCOPHAGE XR) 500 mg 24 hr tablet Take 2 tablets by mouth twice daily. - levothyroxine (SYNTHROID) 112 mcg tablet Take 2 tablets by mouth once daily. - cyclobenzaprine (FLEXERIL) 10 mg tablet - Cholecalciferol, Vitamin D3, 125 mcg (5,000 unit) cap - Vitamin D [employer] ([employer]) Take 1 capsule by mouth daily with food. - montelukast (SINGULAIR) 10 mg tablet Take 10 mg by mouth daily at bedtime. - MULTIVIT-MINERALS/FE RROUS GLUC (CENTRAM-CARE ORAL) Take by mouth twice daily. - esomeprazole mag trihydrate(NEXIUM 40 MG CAP) Take one(1) capsule daily. - mometasone furoate(NASONEX 50 MCG/ACTUATION SPRAY) [place] twice in each nostril once daily. - [...] Status:Closed by ASAD ANSARI on 10/05/21 Normal [facility] CARDIAC ANG ADMITon 022 CK [Catalytic activity/Vol] 34 U/L Normal 26-192 [facility] Comment on above: Performed By: #### F T3, CMP, LIPID, TSH #### [facility] [address] [place] [address] Dr. Gin Chew CK.MB [Mass/Vol] 0.66 ng/mL Normal <=3.60 [facility] Comment on above: Performed By: #### F T3, CMP, LIPID, TSH #### [facility] [address] [address] [address] Gin Chew HSTROP 6.4 pg/mL Normal 4.0-51.3 [facility] Comment on above: Result Comment: CUT- OFF POINTS HAVE BEEN ESTABLISHED BASED ON THE FOURTH UNIVERSAL DEFINITIONS OF MYOCARDIAL INFARCTION. THE UPPER REFERENCE LIMIT (URL) OF TROPONIN, DEFINED THE 99TH PERCENTILE OF cTnI DISTRIBUTION IN A REFERENCE POPULATION, HAS BEEN CONFIRMED THE DECISION THRESHOLD FOR [place] DIAGNOSIS. Performed By: #### F T3, CMP, LIPID, TSH #### [facility] [address] [address] [address] Gin Chew SIXTO 28 ng/mL Normal 9-82 [facility] Comment on above: Performed By: #### F T3, CMP, LIPID, TSH #### [facility] [address] [address] [address] Gin Chew CBC AUTO DIFFon 09-28-2021 BASO # 0.1 103/ul Normal 0.0-0.1 [facility] Comment on above: Performed By: #### A 1C #### [facility] [address] [place] [address] Dr. Gin Chew Basophils/100 WBC (Bld) 0.7 % Normal 0.2-2.0 [facility] Comment on above: Performed By: #### A 1C #### [facility] [address] [place] [address] Dr. Gin Chew EO # 0.5 103/ul Normal 0.0-0.7 [facility] Comment on above: Performed By: #### A 1C #### [facility] [address] [place] [address] Dr. Gin Chew Eosinophils/100 WBC (Bld) 4.4 % Normal 0.9-7.0 [facility] Comment on above: Performed By: #### A 1C #### [facility] [address] [place] [address] Dr. Gin Chew Erythrocyte distribution width (RBC) [Ratio] 12.7 % Normal 11.0-15.0 [facility] Comment on above: Performed By: #### A 1C #### [facility] [address] [place] [address] Dr. Gin Chew Hematocrit (Bld) [Volume fraction] 42.2 % Normal 36.0-48.0 [facility] Comment on above: Performed By: #### A 1C #### [facility] [address] [place] [address] Dr. Gin Chew Hemoglobin (Bld) [Mass/Vol] 14.1 g/dL Normal 12.0-16.0 [facility] Comment on above: Performed By: #### A 1C #### [facility] [address] [place] [address] Dr. Gin Chew IG # 0.10 10e3/ul Critically high 0.00-0.03 [facility] Comment on above: Performed By: #### A 1C #### [facility] [address] [place] [address] Dr. Gin Chew IG % 0.9 % Critically high 0.0-0.5 [facility] Comment on above: Performed By: #### A 1C #### [facility] [address] [place] [address] Dr. Gin Chew LYMPH # 3.4 103/ul Normal 1.2-3.8 [facility] Comment on above: Performed By: #### A 1C #### [facility] [address] [place] [address] Dr. Gin Chew Lymphocytes/100 WBC (Bld) 29.9 % Normal 20.5-60.0 [facility] Comment on above: Performed By: #### A 1C #### [facility] [address] [place] [address] Dr. Gin Chew MANUAL DIFF REQ NO Normal [facility] Comment on above: Performed By: #### A 1C #### [facility] [address] [place] [address] Dr. Gin Chew MCH (RBC) [Entitic mass] 31.0 pg Normal 26.7-34.0 [facility] Comment on above: Performed By: #### A 1C #### [facility] [address] [place] [address] Dr. Gin Chew MCHC (RBC) [Mass/Vol] 33.4 g/dL Normal 29.9-35.2 [facility] Comment on above: Performed By: #### A 1C #### [facility] [address] [place] [address] Dr. Gin Chew MCV (RBC) [Entitic vol] 92.7 fL Normal 81.0-99.0 [facility] Comment on above: Performed By: #### A 1C #### [facility] [address] [place] [address] Dr. Gin Chew MONO # 0.7 103/ul Normal 0.3-0.8 [facility] Comment on above: Performed By: #### A 1C #### [facility] [address] [place] [address] Dr. Gin Chew Monocytes/100 WBC (Bld) 6.5 % Normal 1.7-12.0 [facility] Comment on above: Performed By: #### A 1C #### [facility] [address] [place] [address] Dr. Gin Chew NEUT # 6.5 103/ul Normal 1.4-6.5 [facility] Comment on above: Performed By: #### A 1C #### [facility] [address] [place] [address] Dr. Gin Chew Neutrophils/100 WBC (Bld) 57.6 % Normal 43.0-75.0 [facility] Comment on above: Performed By: #### A 1C #### [facility] [address] [place] [address] Dr. Gin Chew Platelet mean volume (Bld) [Entitic vol] 10.1 fL Normal 9.5-13.5 [facility] Comment on above: Performed By: #### A 1C #### [facility] [address] [place] [address] Dr. Gin Chew PLT 349 103/ul Normal 150-450 [facility] Comment on above: Performed By: #### A 1C #### [facility] [address] [place] [address] Dr. Gin Chew RBC 4.55 106/ul Normal 4.20-5.40 [facility] Comment on above: Performed By: #### A 1C #### [facility] [address] [place] [address] Dr. Gin Chew WBC 11.3 103/ul Critically high 4.0-11.0 [facility] Comment on above: Performed By: #### A 1C #### [facility] [address] [place] [address] ABD/PELVIS WO CONon [...] by: JEFF PATHAK Date: 2021-09-28 10:31 Normal [facility] POINT OF CARE GLUCOSEon 09-18 Glucose [Mass/Vol] 129 mg/dL Critically high 74-106 [facility] Comment on above: Performed By: #### F T3, CMP, LIPID, TSH #### [facility] [address] [place] [address] Dr. Gin Chew PROF 14(COMP METB)on 09-28- 022 Albumin [Mass/Vol] 3.7 g/dL Normal 3.4-5.0 [facility] Comment on above: Performed By: #### F T3, CMP, LIPID, TSH #### [facility] [address] [address] [address] Gin Chew Albumin/Globulin [Mass ratio] 1.1 {ratio} Normal [facility] Comment on above: Performed By: #### F T3, CMP, LIPID, TSH #### [facility] [address] [address] [address] Gin Chew ALP [Catalytic activity/Vol] 79 U/L Normal 46-116 [facility] Comment on above: Performed By: #### F T3, CMP, LIPID, TSH #### [facility] [address] [address] [address] Gin Chew ALT [Catalytic activity/Vol] 28 U/L Normal 14-59 [facility] Comment on above: Performed By: #### F T3, CMP, LIPID, TSH #### [facility] [address] [place] [address] Dr. Gin Chew Anion gap [Moles/Vol] 9.9 mmol/L Normal [facility] Comment on above: Performed By: #### F T3, CMP, LIPID, TSH #### [facility] [address] [place] [address] Dr. Gin Chew AST [Catalytic activity/Vol] 15 U/L Normal 15-37 [facility] Comment on above: Performed By: #### F T3, CMP, LIPID, TSH #### [facility] [address] [place] [address] Dr. Gin Chew Bilirubin [Mass/Vol] 0.3 mg/dL Normal 0.2-1.0 [facility] Comment on above: Performed By: #### F T3, CMP, LIPID, TSH #### [facility] [address] [place] [address] Dr. Gin Chew Calcium [Mass/Vol] 9.2 mg/dL Normal 8.5-10.1 [facility] Comment on above: Performed By: #### F T3, CMP, LIPID, TSH #### [facility] [address] [place] [address] Dr. Gin Chew Chloride [Moles/Vol] 100 mmol/L Normal 98-107 [facility] Comment on above: Performed By: #### F T3, CMP, LIPID, TSH #### [facility] [address] [place] [address] Dr. Gin Chew CO2 [Moles/Vol] 32.1 mmol/L Critically high 21.0-32.0 [facility] Comment on above: Performed By: #### F T3, CMP, LIPID, TSH #### [facility] [address] [place] [address] Dr. Gin Chew Creatinine [Mass/Vol] 0.75 mg/dL Normal 0.55-1.02 [facility] Comment on above: Performed By: #### F T3, CMP, LIPID, TSH #### [facility] [address] [address] [address] Gin Chew EGFR-AF MOSOTHO >60 Normal >=60 [facility] Comment on above: Performed By: #### F T3, CMP, LIPID, TSH #### [facility] [address] [address] [address] Gin Chew EGFR-NON AF [place]OTHO >60 Normal >=60 [facility] Comment on above: Performed By: #### F T3, CMP, LIPID, TSH #### [facility] [address] [address] [address] Gin Chew Globulin (S) [Mass/Vol] 3.4 g/dL Normal [facility] Comment on above: Performed By: #### F T3, CMP, LIPID, TSH #### [facility] [address] [address] [address] Gin Chew Glucose [Mass/Vol] 138 mg/dL Critically high 74-106 [facility] Comment on above: Performed By: #### F T3, CMP, LIPID, TSH #### [facility] [address] [address] [address] Gin Chew Potassium [Moles/Vol] 4.0 mmol/L Normal 3.5-5.1 [facility] Comment on above: Performed By: #### F T3, CMP, LIPID, TSH #### [facility] [address] [address] [address] Gin Chew Protein [Mass/Vol] 7.1 g/dL Normal 6.4-8.2 [facility] Comment on above: Performed By: #### F T3, CMP, LIPID, TSH #### [facility] [address] [address] [address] Gin Chew Sodium [Moles/Vol] 138 mmol/L Normal 136-145 [facility] Comment on above: Performed By: #### F T3, CMP, LIPID, TSH #### [facility] [address] [address] [address] Gin Chew Urea nitrogen [Mass/Vol] 17.0 mg/dL Normal 7.0-18.0 [facility] Comment on above: Performed By: #### F T3, CMP, LIPID, TSH #### [facility] [address] [place] [address] Dr. Gin Chew Urea nitrogen/Creatinine [Mass ratio] 22.7 mg/mg Normal [facility] Comment on above: Performed By: #### F T3, CMP, LIPID, TSH #### [facility] [address] [place] [address] Dr. Gin Chew PROTIMEon 09-28-2021 INR Coag (PPP) [Relative time] 0.94 {INR} Normal [facility] Comment on above: Performed By: #### B MP #### [facility] [address] [place] [address] Dr. Gin Chew INR GUIDELINES SEE BELOW Normal [facility] Comment on above: Result Comment: MERRICK RED INR: 2.0 - 3.0 CONDITIONS NOT LISTED BELOW 2.5 - 3.5 FOR PROSTHETIC HEART VALVE REPLACEMENT 2.5 - 3.5 RECURRENT THROMBOSIS Performed By: #### B MP #### [facility] [address] [place] [address] Dr. Gin Chew PT Coag (PPP) [Time] 10.2 s Normal 9.0-11.6 [facility] Comment on above: Performed By: #### B MP #### [facility] [address] [place] [address] Dr. Gin Chew PTTon 09-28-2021 aPTT Coag (Bld) [Time] 26.9 s Normal 22.3-36.2 [facility] Comment on above: Performed By: #### B MP #### [facility] [address] [place] [address] Dr. Gin Chew TROPONIN, HIGH SENSITIVITYon 09-28-2021 HSTROP 7.3 pg/mL Normal 4.0-51.3 [facility] Comment on above: Result Comment: CUT- OFF POINTS HAVE BEEN ESTABLISHED BASED ON THE FOURTH UNIVERSAL DEFINITIONS OF MYOCARDIAL INFARCTION. THE UPPER REFERENCE LIMIT (URL) OF TROPONIN, DEFINED THE 99TH PERCENTILE OF cTnI DISTRIBUTION IN A REFERENCE POPULATION, HAS BEEN CONFIRMED THE DECISION THRESHOLD FOR [place] DIAGNOSIS. Performed By: #### B #### [facility] [address] [address] [address] Gin Chew XR CHEST 1 Von [...] by: JEFF PATHAK Date: 2021-09-28 09:20 Normal [facility] 07-21-2021 CNPN Telephone (ENDOMN) CANELO PATHAK ([id number]) 1965 F Date Time Provider Department 07/21/21 [...] to please [facility] ensure they are correct. Allergies [...] mcg (5,000 unit) cap - Vitamin D Wortham ([employer] for [employer]) Take 1 capsule by mouth daily with food. - montelukast (SINGULAIR) 10 mg tablet Take 10 mg by mouth daily at bedtime. - MULTIVIT-MINERALS/FE RROUS GLUC (CENTRAM-CARE ORAL) Take by mouth twice daily. - esomeprazole mag trihydrate(NEXIUM 40 MG CAP) Take one(1) capsule daily. - mometasone furoate(NASONEX 50 MCG/ACTUATION SPRAY) [place] twice in each nostril once daily. - [...] Encounter Status:Closed by LUAN BIRMINGHAM on 07/21/21 [facility] Rosa 06-22-2021 CNPN Telephone (ENDOMN) CANELO PATHAK ([id number]) 1965 F Date Time Provider Department 06/22/21 ASAD ANSARI During your visit today, we recorded the following information about you: Neema Amadoulilibethtrenton Adm 06/22/2021 9:10 AM Signed Patient called in requesting the results of her labs that she had completed on 06/16/2021 Canelo can be reached at [phone] (c) or can be reached through [employer]. Allergies As of Date: 06/22/2021 Noted Allergy [...] Fully Assessed Reason for Visit: Patient Question [1767] Prescriptions as of 05/10/2022 - levothyroxine (SYNTHROID) [...] - mometasone furoate(NASONEX 50 MCG/ACTUATION SPRAY) [place] twice in each nostril once daily. - [...] Encounter Status:Closed by NEEMA HIGGINBOTHAM on 05/10/22 [facility] CNOVon 06-16-2021 CNOV Office Visit (ENDOMN) CANELO PATHAK ([id number]) 1965 F Date Time Provider Department 06/16/21 1:20 PM ASAD ANSARI During your visit today, we recorded the following information about you: Pulse Blood pressure Weight 87/minute 168/97 128.7 kg Aracelis Rivers Ma 06/16/2021 12:23 PM Signed Thank you for choosing the [facility] Department of Endocrinology, Diabetes and Metabolism. Did you know that you need to call 48 hours in advance of your scheduled visit, if you are unable to make your appointment? The [facility] [place] thanks you for your commitment, because patients not showing to their appointment results in a lost opportunity for patients to receive world class health care at the [facility]. To Cancel an appointment, please choose one of the following: - Call the Appointment Call Center at [phone] - From [employer], Go to Appointments ? Cancel Appts If cancelling, consider your need to reschedule to prevent further delays in your care. To Schedule an appointment, please choose one of the following: - Call the Appointment Call Center at [phone] - From [employer], Go to Appointments ? Request an Appt Asad Ansari MD 06/16/2021 1:56 PM Signed Last Visit: This is the first visit. Ms. Pathak is here for follow up regarding her DM Type 2 and hypothyroidism. Current Immunizations: Most Recent Immunizations Administered Date(s) Administered COVID-19 vaccine, age 12+ yr ([employer] - PURPLE TOP) 09/23/2020 PHYSICAL EXAMINATION: BP [...] mouth daily before breakfast. - Vitamin D [place] ([employer]) Take 1 capsule by mouth daily with food. - montelukast (SINGULAIR) 10 mg tablet Take 10 mg by mouth daily at bedtime. - MULTIVIT-MINERALS/FE RROUS GLUC (CENTRAM-CARE ORAL) Take by mouth twice daily. - esomeprazole mag trihydrate(NEXIUM 40 MG CAP) Take one(1) capsule daily. - mometasone furoate(NASONEX 50 MCG/ACTUATION SPRAY) [place] twice in each nostril once daily. - [...] No tremors. (more content not included)... Normal [facility] Comp Metabolic Panelon 06-16 Albumin [Mass/Vol] 4.6 g/dL Normal 3.9-4.9 [facility] Comment on above: Performed By: #### C MP, HBA1C, FREET3, FT4, TSH #### [address] [address] ALP [Catalytic activity/Vol] 83 U/L Normal 34-123 [facility] Comment on above: Performed By: #### C MP, HBA1C, FREET3, FT4, TSH #### [id number] [address] ALT [Catalytic activity/Vol] 28 U/L Normal 7-38 [facility] Comment on above: Performed By: #### C MP, HBA1C, FREET3, FT4, TSH #### [id number] [address] Anion gap [Moles/Vol] 12 mmol/L Normal 9-18 [facility] Comment on above: Performed By: #### C MP, HBA1C, FREET3, FT4, TSH #### [id number] [address] AST [Catalytic activity/Vol] 25 U/L Normal 13-35 [facility] Comment on above: Performed By: #### C MP, HBA1C, FREET3, FT4, TSH #### [address] [address] Bilirubin [Mass/Vol] 0.4 mg/dL Normal 0.2-1.3 [facility] Comment on above: Performed By: #### C MP, HBA1C, FREET3, FT4, TSH #### [address] [address] Calcium [Mass/Vol] 10.0 mg/dL Normal 8.5-10.2 [facility] Comment on above: Performed By: #### C MP, HBA1C, FREET3, FT4, TSH #### [address] [address] Chloride [Moles/Vol] 102 mmol/L Normal 97-105 [facility] Comment on above: Performed By: #### C MP, HBA1C, FREET3, FT4, TSH #### [address] [address] CO2 [Moles/Vol] 27 mmol/L Normal 22-30 [facility] Comment on above: Performed By: #### C MP, HBA1C, FREET3, FT4, TSH #### [address] [address] Creatinine [Mass/Vol] 0.74 mg/dL Normal 0.58-0.96 [facility] Comment on above: Performed By: #### C MP, HBA1C, FREET3, FT4, TSH #### [address] [address] eGFR- Amer. >60 Normal [facility] Comment on above: Performed By: #### C MP, HBA1C, FREET3, FT4, TSH #### [address] [address] eGFR-All Other Races >60 Normal [facility] Comment on above: Result Comment: eGFR (Estimated [...] C MP, HBA1C, FREET3, FT4, TSH #### [facility] [employer] [address] [place], [place] [address] Glucose [Mass/Vol] 106 mg/dL High 74-99 [facility] Comment on above: Result Comment: The [place] Diabetes Association (ADA) provides guidance for cutoff [...] Standards of Medical Care in Diabetes 2016, [place] Diabetes Association. Diabetes Care. 2016.39(Suppl 1). Performed By: #### C MP, HBA1C, FREET3, FT4, TSH #### [facility] [employer] [address] [place], [place] [address] Potassium [Moles/Vol] 3.9 mmol/L Normal 3.7-5.1 [facility] Comment on above: Performed By: #### C MP, HBA1C, FREET3, FT4, TSH #### [id number] [address] Protein [Mass/Vol] 7.2 g/dL Normal 6.3-8.0 [facility] Comment on above: Performed By: #### C MP, HBA1C, FREET3, FT4, TSH #### [address] [address] Sodium [Moles/Vol] 141 mmol/L Normal 136-144 [facility] Comment on above: Performed By: #### C MP, HBA1C, FREET3, FT4, TSH #### [address] [address] Urea nitrogen [Mass/Vol] 15 mg/dL Normal 7-21 [facility] Comment on above: Performed By: #### C MP, HBA1C, FREET3, FT4, TSH #### [address] [address] Free T3on 06-16-2021 Free T3 [Mass/Vol] 2.8 pg/mL Normal 2.3-4.1 [facility] Comment on above: Performed By: #### C MP, HBA1C, FREET3, FT4, TSH #### [address] [address] Free T4on 06-16-2021 Free T4 [Mass/Vol] 2.0 ng/dL High 0.9-1.7 [facility] Comment on above: Performed By: #### C MP, HBA1C, FREET3, FT4, TSH #### [address] [address] Hemoglobin A1con 06-16-2021 Glucose [Mass/Vol] 169 mg/dL Normal [facility] Comment on above: Result Comment: eAG: (Estimated average glucose) is a calculated value from HgbA1c and is technical account representative of the average blood glucose level in the last 2-3 month period. Performed By: #### C MP, HBA1C, FREET3, FT4, TSH #### [facility] [employer] [address] [place], [place] [address] HbA1c (Bld) [Mass fraction] 7.5 % High 4.3-5.6 [facility] Comment on above: Result Comment: Amer [place] Diabetes Association guidelines indicate that patients with HgbA1c in the range 5.7-6.4% are at increased risk for development of diabetes, and intervention by lifestyle modification may be beneficial. HgbA1c greater or equal to 6.5% is considered diagnostic of diabetes. Performed By: #### C MP, HBA1C, FREET3, FT4, TSH #### [facility] [employer] [address] [address] TSHon 06-16-2021 TSH Qn 2.200 m[IU]/L Normal 0.270-4.200 [facility] Comment on above: Performed By: #### C MP, HBA1C, FREET3, FT4, TSH #### [facility] [employer] [address] [id number] MRI BRAIN W WO CONTRASTon MRI BRAIN W WO CONTRAST MRI BRAIN WITHOU T CONTRAST: CLINICAL HISTORY: G37.9 APPLICATION TRAINER demyelinating disease (HCC) ICD10, multiple headaches , [...] Briana Rosas MD 09/26/18 Final result Normal [facility] Vital Signs Date Time Vital Sign Value Performing Clinician Faci lity 12-08-2024 09:40-0400 Diastolic blood pressure 95 mm[Hg] Jeff Dontrell DO Work Phone: [facility] 12-08-2024 09:40-0400 Systolic blood pressure 154 mm[Hg] Jeff Dontrell DO Work Phone: [facility] 12-08-2024 09:37-0400 Body height 165.1 cm Jeff Jon DO Work Phone: [facility] 12-08-2024 09:37-0400 Body mass index (BMI) [Ratio] 46.7 kg/m2 Jeff Jon DO Work Phone: [facility] 12-08-2024 09:37-0400 Body weight 127.45 kg Jeff Jon DO Work Phone: [facility] 12-08-2024 09:37-0400 Heart rate 85 /min Jeff Jon DO Work Phone: [facility] 12-08-2024 09:37-0400 Respiratory rate 20 /min Jeff Jon DO Work Phone: [facility] 12-08-2024 09:37-0400 SaO2% (BldA) [Mass fraction] 96 % Jeff Dontrell DO Work Phone: [facility] 11-27-2024 11:36-0400 Body height 165.1 cm Jeff Acostacassi DO Work Phone: [facility] 11-27-2024 11:36-0400 Body mass index (BMI) [Ratio] 46.4 kg/m2 Jeff Jon DO Work Phone: [facility] 11-27-2024 11:36-0400 Body temperature 97.9 [degF] Jeff Jon DO Work Phone: [facility] 11-27-2024 11:36-0400 Body weight 126.55 kg Jeff Jon DO Work Phone: [facility] 11-27-2024 11:36-0400 Diastolic blood pressure 92 mm[Hg] Jeff Jon DO Work Phone: [facility] 11-27-2024 11:36-0400 Heart rate 90 /min Jeff Jon DO Work Phone: [facility] 11-27-2024 11:36-0400 SaO2% (BldA) [Mass fraction] 95 % Jeff Jon DO Work Phone: [facility] 11-27-2024 11:36-0400 Systolic blood pressure 154 mm[Hg] Jeff Jon DO Work Phone: [facility] 09-08-2024 10:10-0400 Diastolic blood pressure 112 mm[Hg] Jeff Jon DO Work Phone: [facility] 09-08-2024 10:10-0400 Systolic blood pressure 162 mm[Hg] Jeff Jon DO Work Phone: [facility] 09-08-2024 10:05-0400 Body height 165.1 cm Jeff Jon DO Work Phone: [facility] 09-08-2024 10:05-0400 Body mass index (BMI) [Ratio] 45.7 kg/m2 Jeff Jon DO Work Phone: [facility] 09-08-2024 10:05-0400 Body temperature 97.9 [degF] Jeff Jon DO Work Phone: [facility] 09-08-2024 10:05-0400 Body weight 124.73 kg Jeff Jon DO Work Phone: [facility] 09-08-2024 10:05-0400 Heart rate 92 /min Jeff Jon DO Work Phone: [facility] 09-08-2024 10:05-0400 Respiratory rate 20 /min Jeff Jon DO Work Phone: [facility] 09-08-2024 10:05-0400 SaO2% (BldA) [Mass fraction] 96 % Jeff Jon DO Work Phone: [facility] 09-01-2024 14:36-0400 Body height 165.1 cm Jeff Jon DO Work Phone: [facility] 09-01-2024 14:36-0400 Body mass index (BMI) [Ratio] 46.9 kg/m2 Jeff Jon DO Work Phone: [facility] 09-01-2024 14:36-0400 Body temperature 97.6 [degF] Jeff Dontrell DO Work Phone: [facility] 09-01-2024 14:36-0400 Body weight 127.91 kg Jeff Jon DO Work Phone: [facility] 09-01-2024 14:36-0400 Diastolic blood pressure 86 mm[Hg] Jeff Jon DO Work Phone: [facility] 09-01-2024 14:36-0400 Heart rate 99 /min Jeff Jon DO Work Phone: [facility] 09-01-2024 14:36-0400 Systolic blood pressure 138 mm[Hg] Jeff Dontrell DO Work Phone: [facility] 08-01-2024 09:55-0400 Body height 165.1 cm Jeff Jon DO Work Phone: [facility] 08-01-2024 09:55-0400 Body weight 124.73 kg Jeff Dontrell DO Work Phone: [facility] 07-16-2024 10:31-0500 Body height 165.1 cm [facility] 07-16-2024 10:31-0500 Body mass index (BMI) [Ratio] 46 kg/m2 [facility] 07-16-2024 10:31-0500 Body weight 125.64 kg [facility] 06-13-2024 11:14-0500 Body height 165.1 cm [facility] 06-13-2024 11:14-0500 Body mass index (BMI) [Ratio] 46 kg/m2 [facility] 06-13-2024 11:14-0500 Body temperature 97.8 [degF] [facility] 06-13-2024 11:14-0500 Body weight 125.64 kg [facility] 06-13-2024 11:14-0500 Diastolic blood pressure 84 mm[Hg] [facility] 06-13-2024 11:14-0500 Heart rate 92 /min [facility] 06-13-2024 11:14-0500 SaO2% (BldA) [Mass fraction] 94 % [facility] 06-13-2024 11:14-0500 Systolic blood pressure 130 mm[Hg] [facility] 06-03-2024 11:45-0500 Body weight 125.81 kg [facility] 06-03-2024 11:45-0500 Diastolic blood pressure 80 mm[Hg] [facility] 06-03-2024 11:45-0500 Heart rate 91 /min [facility] 06-03-2024 11:45-0500 SaO2% (BldA) [Mass fraction] 97 % [facility] 06-03-2024 11:45-0500 Systolic blood pressure 140 mm[Hg] [facility] 04-11-2024 11:52-0500 Body height 165.1 cm [facility] 04-11-2024 11:52-0500 Body mass index (BMI) [Ratio] 45.1 kg/m2 [facility] 04-11-2024 11:52-0500 Body temperature 97.2 [degF] [facility] 04-11-2024 11:52-0500 Body weight 122.92 kg [facility] 04-11-2024 11:52-0500 Diastolic blood pressure 88 mm[Hg] [facility] 04-11-2024 11:52-0500 Heart rate 86 /min [facility] 04-11-2024 11:52-0500 SaO2% (BldA) [Mass fraction] 94 % [facility] 04-11-2024 11:52-0500 Systolic blood pressure 138 mm[Hg] [facility] 03-26-2024 11:37-0500 Body height 165.1 cm [facility] 03-26-2024 11:37-0500 Body mass index (BMI) [Ratio] 45.4 kg/m2 [facility] 03-26-2024 11:37-0500 Body temperature 97.4 [degF] [facility] 03-26-2024 11:37-0500 Body weight 123.83 kg [facility] 03-26-2024 11:37-0500 Diastolic blood pressure 84 mm[Hg] [facility] 03-26-2024 11:37-0500 Heart rate 78 /min [facility] 03-26-2024 11:37-0500 Respiratory rate 20 /min [facility] 03-26-2024 11:37-0500 SaO2% (BldA) [Mass fraction] 97 % [facility] 03-26-2024 11:37-0500 Systolic blood pressure 148 mm[Hg] [facility] 02-12-2024 11:53-0400 Diastolic blood pressure 90 mm[Hg] DO Jeff Jon Work Phone: [facility] 02-12-2024 11:53-0400 Heart rate 83 /min DO Jeff Jon Work Phone: [facility] 02-12-2024 11:53-0400 SaO2% (BldA) [Mass fraction] 97 % DO Jeff Jon Work Phone: [facility] 02-12-2024 11:53-0400 Systolic blood pressure 130 mm[Hg] DO Jeff Jon Work Phone: [facility] 01-14-2024 15:56-0400 Diastolic blood pressure 80 mm[Hg] DO Jeff Jon Work Phone: [facility] 01-14-2024 15:56-0400 Heart rate 82 /min DO Jeff Jon Work Phone: [facility] 01-14-2024 15:56-0400 SaO2% (BldA) [Mass fraction] 97 % DO Jeff Jon Work Phone: [facility] 01-14-2024 15:56-0400 Systolic blood pressure 142 mm[Hg] DO Jeff Jon Work Phone: [facility] 12-19-2023 14:19-0400 Diastolic blood pressure 80 mm[Hg] DO Jeff Jon Work Phone: [facility] 12-19-2023 14:19-0400 Heart rate 100 /min DO Jeff Jon Work Phone: [facility] 12-19-2023 14:19-0400 SaO2% (BldA) [Mass fraction] 96 % DO Jeff Jon Work Phone: [facility] 12-19-2023 14:19-0400 Systolic blood pressure 130 mm[Hg] DO Jeff Jon Work Phone: [facility] 12-05-2023 13:53-0400 Body weight 124.05 kg [facility] 12-05-2023 13:53-0400 Diastolic blood pressure 90 mm[Hg] [facility] 12-05-2023 13:53-0400 Heart rate 91 /min [facility] 12-05-2023 13:53-0400 SaO2% (BldA) [Mass fraction] 97 % [facility] 12-05-2023 13:53-0400 Systolic blood pressure 142 mm[Hg] [facility] 10-29-2023 14:41-0400 Body height 165.1 cm [facility] 10-29-2023 14:41-0400 Body mass index (BMI) [Ratio] 45.7 kg/m2 [facility] 10-29-2023 14:41-0400 Body weight 124.73 kg [facility] 10-29-2023 14:41-0400 Diastolic blood pressure 86 mm[Hg] [facility] 10-29-2023 14:41-0400 Heart rate 87 /min [facility] 10-29-2023 14:41-0400 Respiratory rate 18 /min [facility] 10-29-2023 14:41-0400 SaO2% (BldA) [Mass fraction] 97 % [facility] 10-29-2023 14:41-0400 Systolic blood pressure 142 mm[Hg] [facility] 09-26-2023 14:12-0400 Body height 165.1 cm [facility] 09-26-2023 14:12-0400 Body mass index (BMI) [Ratio] 46 kg/m2 [facility] 09-26-2023 14:12-0400 Body temperature 98.1 [degF] [facility] 09-26-2023 14:12-0400 Body weight 125.64 kg [facility] 09-26-2023 14:12-0400 Diastolic blood pressure 96 mm[Hg] [facility] 09-26-2023 14:12-0400 SaO2% (BldA) [Mass fraction] 95 % [facility] 09-26-2023 14:12-0400 Systolic blood pressure 152 mm[Hg] [facility] 08-28-2023 11:23-0400 Diastolic blood pressure 94 mm[Hg] [facility] 08-28-2023 11:23-0400 Heart rate 89 /min [facility] 08-28-2023 11:23-0400 SaO2% (BldA) [Mass fraction] 98 % [facility] 08-28-2023 11:23-0400 Systolic blood pressure 142 mm[Hg] [facility] 08-28-2023 10:49-0400 Body height 165.1 cm [facility] 08-28-2023 10:49-0400 Body mass index (BMI) [Ratio] 45.7 kg/m2 [facility] 08-28-2023 10:49-0400 Body weight 124.73 kg [facility] 05-10-2023 14:10-0500 Diastolic blood pressure 90 mm[Hg] Casper Nguyen [facility] 05-10-2023 14:10-0500 Heart rate 81 /min Casper Nguyen [facility] 05-10-2023 14:10-0500 Mean blood pressure 114 mm[Hg] Casper Nguyen [facility] 05-10-2023 14:10-0500 Respiratory rate 14 /min Casper Nguyen [facility] 05-10-2023 14:10-0500 Systolic blood pressure 162 mm[Hg] Casper Nguyen [facility] 03-19-2023 14:00-0400 Body height 165.1 cm Carlos Terrazas Other [facility] [employer] Other 03-19-2023 14:00-0400 Body mass index (BMI) [Ratio] 45.09 kg/m2 Carlos Terrazas Other [employer] Other 03-19-2023 14:00-0400 Body temperature 97.8 [degF] Carlos Terrazas Other [employer] Other 03-19-2023 14:00-0400 Body weight 122.93 kg Carlos Terrazas Other [employer] Other 03-19-2023 14:00-0400 Respiratory rate 20 /min Carlos Terrazas Other [employer] Other 03-19-2023 14:00-0400 SaO2% (BldA) [Mass fraction] 98 % Carlos Terrazas Other [employer] Other 02-22-2023 08:10-0400 Body height 165.1 cm Jeff Dontrell Other [employer] Other 02-22-2023 08:10-0400 Body mass index (BMI) [Ratio] 45.26 kg/m2 Jeff Dontrell Other [employer] Other 02-22-2023 08:10-0400 Body temperature 97.8 [degF] Jeff Dontrell Other [employer] Other 02-22-2023 08:10-0400 Body weight 123.38 kg Jeff Acostacassi Other [employer] Other 02-22-2023 08:10-0400 Diastolic blood pressure 104 mm[Hg] Jeff Jon Other [employer] Other 02-22-2023 08:10-0400 Respiratory rate 18 /min Jeff Jon Other [employer] Other 02-22-2023 08:10-0400 SaO2% (BldA) [Mass fraction] 99 % Jeff Dontrell Other [employer] Other 02-22-2023 08:10-0400 Systolic blood pressure 158 mm[Hg] Jeff Jon Other [employer] Other 10-24-2022 16:50-0400 Body height 165.1 cm Lacie Manuel Other [employer] Other 10-24-2022 16:50-0400 Body mass index (BMI) [Ratio] 45.09 kg/m2 Lacie Manuel Other [employer] Other 10-24-2022 16:50-0400 Body temperature 98 [degF] Lacie Manuel Other [employer] Other 10-24-2022 16:50-0400 Body weight 122.93 kg Lacie Manuel Other [employer] Other 10-24-2022 16:50-0400 Diastolic blood pressure 81 mm[Hg] Lacie Manuel Other [employer] Other 10-24-2022 16:50-0400 Respiratory rate 18 /min Lacie Manuel Other [employer] Other 10-24-2022 16:50-0400 SaO2% (BldA) [Mass fraction] 95 % Lacie Manuel Other [employer] Other 10-24-2022 16:50-0400 Systolic blood pressure 148 mm[Hg] Lacie Manuel Other [employer] Other 10-17-2022 08:45-0400 Body height 165.1 cm Carlos Terrazas Other [employer] Other 10-17-2022 08:45-0400 Body mass index (BMI) [Ratio] 44.76 kg/m2 Carlos Terrazas Other [employer] Other 10-17-2022 08:45-0400 Body temperature 96.8 [degF] Carlos Terrazas Other [employer] Other 10-17-2022 08:45-0400 Body weight 122.02 kg Carlos Terrazas Other [employer] Other 10-17-2022 08:45-0400 Diastolic blood pressure 80 mm[Hg] Christopher Mk Other [employer] Other 10-17-2022 08:45-0400 Respiratory rate 20 /min Christopher Mk Other [employer] Other 10-17-2022 08:45-0400 SaO2% (BldA) [Mass fraction] 98 % Christopher Mk Other [employer] Other 10-17-2022 08:45-0400 Systolic blood pressure 153 mm[Hg] Christopher Mk Other [employer] Other 09-13-2022 10:15-0400 Body height 165.1 cm Christopher Mk Other [employer] Other 09-13-2022 10:15-0400 Body mass index (BMI) [Ratio] 43.43 kg/m2 Christopher Mk Other [employer] Other 09-13-2022 10:15-0400 Body temperature 97.8 [degF] Christopher Mk Other [employer] Other 09-13-2022 10:15-0400 Body weight 118.39 kg Christopher Mk Other [employer] Other 09-13-2022 10:15-0400 Diastolic blood pressure 100 mm[Hg] Christopher Mk Other [employer] Other 09-13-2022 10:15-0400 Respiratory rate 20 /min Christopher Mk Other [employer] Other 09-13-2022 10:15-0400 SaO2% (BldA) [Mass fraction] 100 % Carlos Terrazas Other [employer] Other 09-13-2022 10:15-0400 Systolic blood pressure 180 mm[Hg] Carlos Mk Other [employer] Other 08-11-2022 13:35-0400 Body height 165.1 cm Lacie Manuel Other [employer] Other 08-11-2022 13:35-0400 Body mass index (BMI) [Ratio] 26.62 kg/m2 Lacie Manuel Other [employer] Other 08-11-2022 13:35-0400 Body temperature 97.8 [degF] Lacie Manuel Other [employer] Other 08-11-2022 13:35-0400 Body weight 72.58 kg Lacie Manuel Other [employer] Other 08-11-2022 13:35-0400 Respiratory rate 18 /min Lacie Manuel Other [employer] Other 08-11-2022 13:35-0400 SaO2% (BldA) [Mass fraction] 98 % Lacie Manuel Other [employer] Other 07-12-2022 13:20-0500 Body height 165.1 cm Jeff Jon Other [employer] Other 07-12-2022 13:20-0500 Body mass index (BMI) [Ratio] 43.26 kg/m2 Jeff Shanevin Other [employer] Other 07-12-2022 13:20-0500 Body temperature 96.1 [degF] Jeff Acostacassi Other [employer] Other 07-12-2022 13:20-0500 Body weight 117.94 kg Jeff Dontrell Other [employer] Other 07-12-2022 13:20-0500 Diastolic blood pressure 84 mm[Hg] Jeff Jon Other [employer] Other 07-12-2022 13:20-0500 Respiratory rate 18 /min Jeff Jno Other [employer] Other 07-12-2022 13:20-0500 SaO2% (BldA) [Mass fraction] 99 % Jeff Jon Other [employer] Other 07-12-2022 13:20-0500 Systolic blood pressure 138 mm[Hg] Jeff Jon Other [employer] Other 04-11-2022 13:40-0500 Body height 165.1 cm Jeff Dontrell Other [employer] Other 04-11-2022 13:40-0500 Body mass index (BMI) [Ratio] 43.26 kg/m2 Jeff Jon Other [employer] Other 04-11-2022 13:40-0500 Body temperature 97.5 [degF] Jeff Acostacassi Other [employer] Other 04-11-2022 13:40-0500 Body weight 117.94 kg Jeff Acostacassi Other [employer] Other 04-11-2022 13:40-0500 Diastolic blood pressure 104 mm[Hg] Jeff Dontrell Other [employer] Other 04-11-2022 13:40-0500 Respiratory rate 18 /min Jeff Jon Other [employer] Other 04-11-2022 13:40-0500 SaO2% (BldA) [Mass fraction] 98 % Jeff Jon Other [employer] Other 04-11-2022 13:40-0500 Systolic blood pressure 144 mm[Hg] Jeff Jon Other [employer] Other 12-06-2021 12:00-0400 Body height 165.1 cm Lorena Jacky Other [employer] Other 12-06-2021 12:00-0400 Body mass index (BMI) [Ratio] 45.09 kg/m2 Lorena Jacky Other [employer] Other 12-06-2021 12:00-0400 Body temperature 96.9 [degF] Lorena Jacky Other [employer] Other 12-06-2021 12:00-0400 Body weight 122.93 kg Lorena Jacky Other [employer] Other 12-06-2021 12:00-0400 Diastolic blood pressure 88 mm[Hg] Lorena Jacky Other [employer] Other 12-06-2021 12:00-0400 Respiratory rate 20 /min Lorena Jacky Other [employer] Other 12-06-2021 12:00-0400 SaO2% (BldA) [Mass fraction] 99 % Lorena Rico Other [employer] Other 12-06-2021 12:00-0400 Systolic blood pressure 148 mm[Hg] Lorena Rico Other [employer] Other 10-20-2021 11:30-0400 Body height 165.1 cm Jeff Jon Other [employer] Other 10-20-2021 11:30-0400 Body mass index (BMI) [Ratio] 46.09 kg/m2 Jeff Jon Other [employer] Other 10-20-2021 11:30-0400 Body temperature 96.8 [degF] Jeff Jon Other [employer] Other 10-20-2021 11:30-0400 Body weight 125.65 kg Jeff Jon Other [employer] Other 10-20-2021 11:30-0400 Diastolic blood pressure 88 mm[Hg] Jeff Jon Other [employer] Other 10-20-2021 11:30-0400 Respiratory rate 18 /min Jeff Jon Other [employer] Other 10-20-2021 11:30-0400 SaO2% (BldA) [Mass fraction] 96 % Jeff Jon Other [employer] Other 10-20-2021 11:30-0400 Systolic blood pressure 148 mm[Hg] Jeff Jon Other [employer] Other 10-07-2021 13:46-0400 Body weight 125.83 kg Leena Seymour MD Work Phone: [facility] 10-07-2021 13:46-0400 Diastolic blood pressure 93 mm[Hg] Leena Seymour MD Work Phone: [facility] 10-07-2021 13:46-0400 Heart rate 94 /min Leena Seymour MD Work Phone: [facility] 10-07-2021 13:46-0400 Systolic blood pressure 155 mm[Hg] Leena Seymour MD Work Phone: [facility] 03-15-2021 13:40-0400 Body height 165.1 cm Jeff Jon Other [employer] Other 03-15-2021 13:40-0400 Body mass index (BMI) [Ratio] 45.51 kg/m2 Jeff Jon Other [employer] Other 03-15-2021 13:40-0400 Body temperature 97.7 [degF] Jeff Jon Other [employer] Other 03-15-2021 13:40-0400 Body weight 124.06 kg Jeff Jon Other [employer] Other 03-15-2021 13:40-0400 Diastolic blood pressure 92 mm[Hg] Jeff Jon Other [employer] Other 03-15-2021 13:40-0400 Respiratory rate 20 /min Jeff Jon Other [employer] Other 03-15-2021 13:40-0400 SaO2% (BldA) [Mass fraction] 98 % Jeff Jon Other [employer] Other 03-15-2021 13:40-0400 Systolic blood pressure 146 mm[Hg] Jeff Jon Other [employer] Other 02-21-2021 11:00-0400 Body height 165.1 cm Carlos Parkno Other [employer] Other 02-21-2021 11:00-0400 Body mass index (BMI) [Ratio] 44.93 kg/m2 Ryleyer Mk Other [employer] Other 02-21-2021 11:00-0400 Body temperature 97.5 [degF] Ryleyer Mk Other [employer] Other 02-21-2021 11:00-0400 Body weight 122.47 kg Ryleyer Mk Other [employer] Other 02-21-2021 11:00-0400 Diastolic blood pressure 92 mm[Hg] Ryleyer Mk Other [employer] Other 02-21-2021 11:00-0400 Respiratory rate 20 /min Ryleyer Mk Other [employer] Other 02-21-2021 11:00-0400 SaO2% (BldA) [Mass fraction] 99 % Ryleyer Mk Other [employer] Other 02-21-2021 11:00-0400 Systolic blood pressure 154 mm[Hg] Ryleyer Mk Other [employer] Other Encounters Encounter Date Encounter Type Care Provider Facility Start: 02-09-2025 End: 02-09-2025 ambulatory [facility] Start: 01-08-2025 End: 01-08-2025 ambulatory [facility] Start: 01-05-2025 End: 01-05-2025 ambulatory [facility] Start: 12-08-2024 End: 12-08-2024 ambulatory Jeff Jon DO Work Phone: [facility] Work Phone: Start: 12-08-2024 End: 12-08-2024 Patient encounter procedure Lorena Moore APRN [facility] Work Phone: Start: 11-27-2024 End: 11-27-2024 ambulatory Jeff Jon DO Work Phone: [facility] Work Phone: Start: 11-27-2024 End: 11-27-2024 Patient encounter procedure Jeff Jon DO -[facility] Work Phone: Start: 11-26-2024 End: 11-26-2024 ambulatory Jeff Jon Facility:[facility] Start: 11-26-2024 Non-patient / Non-visit Jeff Peters in [facility] Work Phone: Start: 11-20-2024 Non-patient / Non-visit Jeff Peters in [facility] Work Phone: Start: 10-24-2024 End: 10-24-2024 ambulatory Jeff Jon DO Work Phone: [facility] Work Phone: Start: 10-24-2024 End: 10-24-2024 Patient encounter procedure Jeff Jon DO Work Phone: [facility] [place] Work Phone: Start: 09-08-2024 End: 09-08-2024 ambulatory Jeff Jon DO Work Phone: [facility] Work Phone: Start: 09-08-2024 End: 09-08-2024 Patient encounter procedure Jeff Jon DO Work Phone: [facility] Work Phone: Start: 09-05-2024 Non-patient / Non-visit Jeff Jon DO Work Phone: [facility] Work Phone: Start: 09-01-2024 End: 09-01-2024 ambulatory Jeff Jon DO Work Phone: [facility] Work Phone: Start: 09-01-2024 End: 09-01-2024 Patient encounter procedure Jeff Jon DO Work Phone: [facility] Physician [facility] [place] Work Phone: Start: 08-25-2024 End: 08-25-2024 ambulatory [facility] Start: 08-06-2024 Non-patient / Non-visit Jeff Jon DO Work Phone: [facility] Work Phone: Start: 08-05-2024 Non-patient / Non-visit Jeff Jon DO Work Phone: [facility] Work Phone: Start: 08-01-2024 End: 08-01-2024 ambulatory Jeff Jon DO Work Phone: [facility] Work Phone: Start: 08-01-2024 End: 08-01-2024 Departed Referred Jeff Jon DO Work Phone: [facility]Dig[facility] Work Phone: Start: 07-30-2024 End: 07-30-2024 Patient encounter procedure Jeff Jon DO Work Phone: [facility] Scan [facility] [place] Work Phone: Start: 07-30-2024 End: 07-30-2024 ambulatory Jeff Jon DO Work Phone: [facility] Work Phone: Start: 07-16-2024 End: 07-16-2024 ambulatory [place] [facility] [place] Work Phone: Start: 07-16-2024 End: 07-16-2024 Patient encounter procedure [facility] G[facility] Work Phone: Start: 06-26-[address] [facility] Work Phone: Start: 06-26-2024 Non-patient / Non-visit [facility] Work Phone: Start: 06-13-2024 End: 06-13-2024 ambulatory [facility] Work Phone: Start: 06-13-2024 End: 06-13-2024 Patient encounter procedure [facility] Phys[facility] [place] Work Phone: Start: 06-03-2024 End: 06-03-2024 ambulatory [facility] Work Phone: Start: 06-03-2024 End: 06-03-2024 Patient encounter procedure [facility] Phys[facility] Pain Mgmt Work Phone: Start: 04-11-2024 End: 04-11-2024 Patient encounter procedure [facility] [place] Work Phone: Start: 03-26-2024 End: 03-26-2024 ambulatory [facility] Work Phone: Start: 03-26-2024 End: 03-26-2024 Patient encounter procedure [facility] Work Phone: Start: 03-20-2024 Non-patient / Non-visit [facility] Work Phone: Start: 02-12-2024 End: 02-12-2024 ambulatory DO Jeff Jon Work Phone: [facility] Work Phone: Start: 02-12-2024 End: 02-12-2024 Patient encounter procedure DO Jeff Jon Work Phone: [facility] Work Phone: Start: 02-05-2024 End: 02-05-2024 ambulatory DO Jeff Jon Work Phone: [facility] Work Phone: Start: 02-05-2024 End: 02-05-2024 Patient encounter procedure DO Jeff Jon Work Phone: [facility] Physician [facility] Work Phone: Start: 02-05-2024 Non-patient / Non-visit DO Dane Jon Work Phone: [facility] Work Phone: Start: 01-28-2024 ambulatory Jeff Jon DO F acility:[facility] Start: 01-14-2024 End: 01-14-2024 ambulatory DO Jeff Jon Work Phone: [facility] Work Phone: Start: 01-14-2024 End: 01-14-2024 Patient encounter procedure DO Jeff Jon Work Phone: [facility] Physician [facility] Work Phone: Start: 01-07-2024 ambulatory Jeff Jon DO F acility:[facility] Start: 12-27-2023 Non-patient / Non-visit DO Dane Jon Work Phone: [facility] Physician [facility] Work Phone: Start: 12-27-2023 End: 12-27-2023 ambulatory DO Jeff Jon Work Phone: [facility] Work Phone: Start: 12-27-2023 End: 12-27-2023 Patient encounter procedure DO Jeff Jon Work Phone: [facility] Work Phone: Start: 12-19-2023 End: 12-19-2023 ambulatory DO Jeff Jon Work Phone: [facility] Work Phone: Start: 12-19-2023 End: 12-19-2023 Patient encounter procedure DO Jeff Jon Work Phone: [facility] Physician [facility] Work Phone: Start: 12-12-2023 ambulatory Jeff Jon DO F acility:Gastroenterol ogy [facility] Start: 12-12-2023 End: 12-12-2023 ambulatory [facility] Start: 12-05-2023 End: 12-05-2023 ambulatory DO Jeff Jon Work Phone: [facility] Work Phone: Start: 12-05-2023 End: 12-05-2023 Patient encounter procedure [facility] Phys[facility] Work Phone: Start: 10-29-2023 End: 10-29-2023 ambulatory [facility] Work Phone: Start: 10-29-2023 End: 10-29-2023 Patient encounter procedure [facility] Phys[facility] [place] Work Phone: Start: 10-25-2023 Non-patient / Non-visit [facility] Work Phone: Start: 10-23-2023 End: 10-23-2023 ambulatory JENNIE INFANTEJULIO Not Available Start: 09-26-2023 End: 09-26-2023 ambulatory [facility] Work Phone: Start: 09-26-2023 End: 09-26-2023 Patient encounter procedure [facility] [place] Work Phone: Start: 09-24-2023 End: 09-24-2023 ambulatory JENNIE H TIMMIS Not Available Start: 09-18-2023 End: 09-18-2023 ambulatory SVETLANA SINGH Not Available Start: 09-05-2023 End: 09-05-2023 ambulatory JENNIE H TIMMIS Not Available Start: 08-28-2023 End: 08-28-2023 ambulatory [facility] Work Phone: Start: 08-28-2023 End: 08-28-2023 Patient encounter procedure [facility] Work Phone: Start: 08-23-2023 Non-patient / Non-visit [facility] Phys[facility] [employer] Work Phone: Start: 08-21-2023 End: 08-21-2023 ambulatory JENNIE H TIMMIS Not Available Start: 06-29-2023 End: 06-29-2023 ambulatory Jeff Jon Other [employer] Other Start: 06-29-2023 Telephone encounter Jeff Jon [facility] Start: 05-10-2023 End: 05-11-2023 ambulatory DO Casper Nguyen Facility:[facility] Start: 05-10-2023 End: 05-10-2023 Pain Management Casper Nguyen [facility] Start: 04-30-2023 End: 04-30-2023 ambulatory SHARON D HILLS Not Available Start: 04-24-2023 End: 04-24-2023 ambulatory SHARON D HILLS Not Available Start: 04-18-2023 End: 04-18-2023 ambulatory SHARON D HILLS Not Available Start: 04-04-2023 End: 04-04-2023 ambulatory Jeff Jon Other [employer] Other Start: 04-04-2023 Telephone encounter Jeff Jon [facility] Start: 03-19-2023 End: 03-19-2023 ambulatory Christopher Mk Other [employer] Other Start: 03-19-2023 Office outpatient vi sit 15 minutes Christopher Mk [facility] Start: 02-22-2023 End: 02-22-2023 ambulatory Jeff Jon Other [employer] Other Start: 02-22-2023 Office outpatient vi sit 25 minutes Jeff Jon [facility] Start: 11-24-2022 End: 11-24-2022 ambulatory Jeff Jon Other [employer] Other Start: 11-24-2022 Telephone encounter Jeff Jon [facility] Start: 10-24-2022 End: 10-24-2022 ambulatory Lacie Manuel Other [employer] Other Start: 10-24-2022 Office outpatient vi sit 15 minutes Lacie Manuel [facility] Start: 10-17-2022 End: 10-17-2022 ambulatory Christopher Mk Other [employer] Other Start: 10-17-2022 Office outpatient vi sit 15 minutes Christopher Mk [facility] Start: 10-03-[address] Gela Moreau Facility: Start: 09-27-2022 Patient encounter procedure Jeff Jon Work Phone: [facility] [address] DO Work Phone: Start: 09-27-[address] Jeff Jon Facility: Start: 09-14-2022 Encounter for other preprocedural examination [facility] Start: 09-14-2022 Encounter for preprocedural cardiovascular examination [facility] Start: 09-14-2022 Encounter for preprocedural laboratory examination [facility] Start: 09-14-2022 Encounter for preprocedural respiratory examination JENNIE JIANG [facility] Start: 09-13-2022 End: 09-13-2022 ambulatory Carlos Terrazas Other [employer] Other Start: 09-13-2022 Office outpatient vi sit 25 minutes Carlos Terrazas [facility] Pulmonary Disease Start: 09-12-[address] JEFF JON Facilit y:[facility] Start: 09-08-2022 End: 09-09-2022 Encounter for preprocedural laboratory examination DR JEFF JON Facility:[facility] Start: 09-08-2022 End: 09-09-[address] JEFF JON [employer] Other Start: 09-08-2022 Telephone encounter Jeff Jon [facility] [place] Start: 09-01-2022 End: 09-01-2022 ambulatory Jeff Jon Other [employer] Other Start: 09-01-2022 Telephone encounter Jeff Jon [facility] [place] Start: 08-21-2022 End: 08-21-2022 ambulatory ANASTASIA WADE Facility:[facility] Start: 08-18-2022 End: 08-18-[address] Jeff Jon [employer] Other Start: 08-18-2022 Telephone encounter Jeff Jon [facility] [place] Start: 08-17-2022 End: 08-17-2022 ambulatory MARCELL DIAB . Facility:[facility] Start: 08-14-2022 End: 08-14-2022 ambulatory Jeff Jon Other [employer] Other Start: 08-14-2022 Telephone encounter Jeff Jon [facility] [place] Start: 08-11-2022 End: 08-11-2022 ambulatory Jeff Jon Other [employer] Other Start: 08-11-2022 Office outpatient vi sit 15 minutes Lacie Manuel [facility] [place] Start: 08-11-2022 Telephone encounter Jeff Jon [facility] [place] Start: 08-07-2022 End: 08-07-2022 ambulatory Jeff Jon Other [employer] Other Start: 08-07-2022 Telephone encounter Jeff Jon [facility] Start: 07-12-2022 End: 07-12-2022 ambulatory Jeff Jon Other [employer] Other Start: 07-12-2022 Office outpatient vi sit 25 minutes Jeff Jon [facility] [place] Start: 07-12-2022 Telephone encounter Jeff Jon [facility] [place] Start: 07-10-2022 End: 07-11-[address] JEFF JON Facility:[facility] Start: 06-14-2022 End: 06-14-2022 ambulatory Jeff Jon Other [employer] Other Start: 06-14-2022 Telephone encounter Jeff Jon [facility] [place] Start: 06-07-2022 End: 06-07-2022 ambulatory Jeff Jon Other [employer] Other Start: 06-07-2022 Telephone encounter Jeff Jon [facility] [place] Start: 04-11-2022 End: 04-11-2022 ambulatory Jeff Jon Other [employer] Other Start: 04-11-2022 Office outpatient vi sit 25 minutes Jeff Jon [facility] [place] Start: 04-05-2022 End: 04-06-[address] JEFF JON Facility:[facility] Start: 04-04-2022 End: 04-04-2022 ambulatory Jeff Jon Other [employer] Other Start: 04-04-2022 Telephone encounter Jeff Jon [facility] [place] Start: 04-03-2022 End: 04-03-2022 ambulatory Jeff Jon Other [employer] Other Start: 04-03-2022 Telephone encounter Jeff Jon [facility] [place] Start: 03-21-2022 End: 03-21-2022 ambulatory Jeff Jon Other [employer] Other Start: 03-21-2022 Telephone encounter Jeff Jon [facility] Start: 12-09-2021 End: 12-09-2021 ambulatory Jeff Jon Other [employer] Other Start: 12-09-2021 [facility] Start: 12-06-2021 End: 12-06-2021 ambulatory Lorena Jacky Other [employer] Other Start: 12-06-2021 Office outpatient vi sit 25 minutes Lorena Jacky [facility] Start: 12-06-2021 Telephone encounter Lorena Jacky [facility] Start: 11-29-2021 End: 11-30-[address] JFEF JON Facility: Start: 10-20-2021 End: 10-20-2021 ambulatory Jeff Jon Other [employer] Other Start: 10-20-2021 Office outpatient vi sit 25 minutes Jeff Jon [facility] Start: 10-13-2021 End: 10-13-2021 ambulatory JEFF JON Facility:[facility] Start: 10-13-2021 End: 10-13-2021 ambulatory Anila Jimenez APRN.[employer] Work Phone: Endocrinology Comment on above: Type 2 diabetes shreya itus with hyperglycemia, without long-term current use of insulin (HCC) (Primary Dx); Heraclio's disease Start: 10-13-2021 End: 10-13-2021 Telemedicine consultation with patient Devantimoteo Tony BAEZA.[employer] Work Phone: [facility] Start: 10-13-2021 Telephone encounter Anila lee APRN.[employer] Work Phone: Endocrinology Comment on above: Appointment Start: 10-07-2021 End: 10-08-2021 ambulatory JEFF JON Facility:[facility] Start: 10-07-2021 End: 10-07-2021 Patient encounter procedure Leena Seymour MD Work Phone: Rheumatology Comment on above: Fibromyalgia (Primar y Dx); ALDEN (generalized anxiety disorder) Start: 10-03-2021 Telephone encounter Asad adrian MD Work Phone: Endocrinology Comment on above: Lab Orders Start: 09-29-[address] JEFF JON Facilit y:H1 Start: 09-28-2021 Telephone [facility] Start: 09-28-2021 End: 09-28-[address] JEFF JON [employer] Other Start: 09-20-2021 End: 09-20-2021 ambulatory Carlos Terrazas Other [employer] Other Start: 09-20-2021 Telephone encounter Carlos juárez [facility] Start: 08-22-2021 End: 08-22-2021 ambulatory Carlos Terrazas Other [employer] Other Start: 08-22-2021 Telephone encounter Jeff Jon [facility] [place] Start: 07-22-2021 End: 07-22-2021 ambulatory ASAD ANSARI Facility:[facility] Start: 07-14-2021 End: 07-14-2021 ambulatory Jeff Jon Other [employer] Other Start: 07-14-2021 Telephone encounter Jeff Jon [facility] [place] Start: 07-04-2021 End: 07-04-2021 ambulatory Jeff Jon Other [employer] Other Start: 07-04-2021 Telephone encounter Jeff Jon [facility] [place] Start: 06-28-2021 End: 06-28-2021 ambulatory Jeff Jon Other [employer] Other Start: 06-28-2021 Telephone encounter Jeff Jon [facility] [place] Start: 06-22-2021 Telephone encounter Aasd adrian MD Work Phone: Endocrinology Comment on above: Patient Question Start: 06-16-2021 End: 06-17-2021 ambulatory JEFF JON Facility:[facility] Start: 06-16-2021 End: 06-17-2021 ambulatory ASAD ANSARI Facility:[facility] Start: 05-25-2021 End: 05-25-2021 ambulatory Jeff Jon Other [employer] Other Start: 05-25-2021 Telephone encounter Jeff Jon [facility] [place] Start: 05-11-2021 End: 05-11-2021 ambulatory Jeff Jon Other [employer] Other Start: 05-11-2021 Telephone encounter Jeff Jon [facility] [place] Start: 04-27-2021 End: 04-27-2021 ambulatory Jeff Jon Other [employer] Other Start: 04-27-2021 Telephone encounter Jeff Jon [facility] [place] Start: 04-19-2021 End: 04-19-2021 ambulatory Carl Valdivia Other [employer] Other Start: 04-19-2021 Telephone encounter Carl tam [facility] Start: 03-16-2021 Telephone encounter Vandana quintana [facility] Start: 03-15-2021 Office outpatient vi sit 15 minutes Jeff Jon [facility] [place] Start: 02-24-2021 Telephone encounter Jeff Jon [facility] [place] Start: 02-21-2021 Office outpatient vi sit 15 minutes Carlos Terrazas [facility] Start: 09-26-2018 End: 09-29-2018 Patient encounter procedure JEFF JON [facility] Procedures Date Procedure Procedure Detail Performing [...] Activity Detail Author Start: 11-26-2024 Urine culture [facility] Start: 08-14-2024 Esophagogastroduodenoscopy DH EGD/Colonoscopy (Not Applicable) [facility] Start: 06-26-[address] [facility] Work Phone: Start: 06-16-2024 DIABETES SCREEN DIABETES SCREEN [facility] Start: 04-11-[address] [facility] Work Phone: Start: 09-26-[address] [facility] Work Phone: Start: 10-06-2022 Adult depression screening assessment DEPRESSION SCREENING [facility] Start: 04-09-2022 Hemoglobin A1c/Hemoglobin.total in Blood HBA1C [facility] Start: 01-19-2022 Influenza vaccination INFLUENZA (#1) [facility] Start: 11-25-2021 End: 01-25-2022 T3 FREE BLD T3 FREE BLD Lab Routine Heraclio's disease Expected: 11/25/2021, Expires: 01/25/2022 [facility] Work Phone: Comment on above: Expected: 11/25/2021, Expires: 2 Start: 11-25-2021 End: 01-25-2022 T4 FREE/FREE THYROX T4 FREE/FREE THYROX Lab Routine Heraclio's disease Expected: 11/25/2021, Expires: 01/25/2022 [facility] Work Phone: Comment on above: Expected: 11/25/2021, Expires: 2 Start: 11-25-2021 End: 01-25-2022 Thyrotropin [Units/volume] in Serum or Plasma TSH BLD Lab Routine Heraclio's disease Expected: 11/25/2021, Expires: 01/25/2022 [facility] Work Phone: Comment on above: Expected: 11/25/2021, Expires: 2 Start: 10-07-2021 End: 12-07-2021 PROTEIN ELECTROPHORESIS SERUM W/INTERP [facility] Work Phone: Comment on above: Expected: 10/07/2021, Expires: 2 Start: 10-05-2021 End: 12-05-2021 Comprehensive metabolic 2000 panel - Serum or Plasma COMP METABOLIC PANEL Lab Routine Controlled type 2 diabetes mellitus without complication, without long-term current use of insulin (HCC) Expected: 10/05/2021, Expires: 12/05/2021 [facility] Work Phone: Comment on above: Expected: 10/05/2021, Expires: 2 Start: 10-05-2021 End: 12-05-2021 Hemoglobin A1c/Hemoglobin.total in Blood HGB A1C Lab Routine Controlled type 2 diabetes mellitus without complication, without long-term current use of insulin (HCC) Expected: 10/05/2021, Expires: 12/05/2021 [facility] Work Phone: Comment on above: Expected: 10/05/2021, Expires: 2 Start: 10-05-2021 End: 12-05-2021 T3 FREE BLD T3 FREE BLD Lab Routine Acquired hypothyroidism Expected: 10/05/2021, Expires: 12/05/2021 [facility] Work Phone: Comment on above: Expected: 10/05/2021, Expires: 2 Start: 10-05-2021 End: 12-05-2021 T4 FREE/FREE THYROX T4 FREE/FREE THYROX Lab Routine Acquired hypothyroidism Expected: 10/05/2021, Expires: 12/05/2021 [facility] Work Phone: Comment on above: Expected: 10/05/2021, Expires: 2 Start: 10-05-2021 End: 12-05-2021 Thyrotropin [Units/volume] in Serum or Plasma TSH BLD Lab Routine Acquired hypothyroidism Expected: 10/05/2021, Expires: 12/05/2021 [facility] Work Phone: Comment on above: Expected: 10/05/2021, Expires: 2 Start: 05-21-2021 DEPRESSION ASSESSMENT DEPRESSION ASSESSMENT [facility] Start: 02-23-2021 COVID-19 VACCINE (3 - Booster for Pfizer series) COVID-19 VACCINE (3 - Booster for Pfizer series) [facility] Start: 11-18-2020 COVID-19 VACCINE (3 - Booster for Pfizer series) COVID-19 VACCINE (3 - Booster for Pfizer series) [facility] Start: 09-10-2017 SHINGRIX VACCINE (1 of 2) SHINGRIX VACCINE (1 of 2) [facility] Start: 09-10-2012 COLOGUARD (FIT-DNA) COLOGUARD (FIT-DNA) [facility] Start: 09-10-2012 Colonoscopy COLONOSCOPY [facility] Start: 09-10-2012 COLORECTAL CANCER SCREENING COLORECTAL CANCER SCREENING [facility] Start: 09-10-[address] COLONOGRAPHY [facility] Start: 09-10-2012 FECAL OCCULT BLOOD FECAL OCCULT BLOOD [facility] Start: 09-10-2012 LIPID SCREEN LIPID SCREEN [facility] Start: 09-10-2012 SIGMOIDOSCOPY SIGMOIDOSCOPY [facility] Start: 2007 Mammography MAMMOGRAM [facility] Start: 09-10-1997 HPV TESTING HPV TESTING [facility] Start: 09-10-1988 PAP TESTING PAP TESTING [facility] Start: 09-10-1986 HEPATITIS B (1 of 3 - Risk 3-dose series) HEPATITIS B (1 of 3 - Risk 3-dose series) [facility] Start: 09-10-1986 Urine microalbumin profile DTAP,TDAP,TD (1 - Tdap) [facility] Start: 09-10-1985 ANNUAL PCP TEAM CHRONIC DISEASE VISIT ANNUAL PCP TEAM CHRONIC DISEASE VISIT [facility] Start: 09-10-1985 Hepatitis B surface antibody level LDL CHOLESTEROL [facility] Start: 09-10-1985 HIV SCREENING HIV SCREENING [facility] Start: 1979 Adult depression screening assessment DEPRESSION SCREENING [facility] Start: 09-10-1977 3 comp foot exam completed DIABETIC FOOT EXAM [facility] Start: 09-10-1977 Hepatitis B screening URINE ALBUMIN:CREATININE RATIO [facility] Start: 09-10-1977 Hepatitis C antibody, confirmatory test DILATED RETINAL EXAM [facility] Start: 09-10-1973 PNEUMOCOCCAL (1 - PCV) PNEUMOCOCCAL (1 - PCV) [facility] Start: 1967 HEPATITIS B (1 of 3 - 3-dose series) HEPATITIS B (1 of 3 - 3-dose series) [facility] Antibody to Scl-70 measurement [facility] Comprehensive metabo lic 1999 panel - Serum or Plasma [facility] Comprehensive metabo lic 1999 panel - Serum or Plasma [facility] Comprehensive metabo lic 1999 panel - Serum or Plasma [facility] CT Abdomen and Pelvis WO contrast [facility] Insulin [Units/volum e] in Serum or Plasma [facility] Patient referral [facility] Work Phone: Rheumatoid factor [U nits/volume] in Serum or Plasma [facility] Urine culture [facility] XR Hip - left 2 Views [facility] XR Hip - right 2 Views [facility] XR Lumbar spine 4 Views [facility] XR Shoulder - left Views [facility] [place] Immunizations Immunization Date Immunization Notes Care Provider Fa cility 03-15-2021 influenza, seasonal, injectable Patient Objection Vandana Jordan Other [facility] [employer] Other 09-23-2020 COVID-19 Vaccine Pfizer - Documentation Purposes Only Christdanna Mk Other [facility] 09-02-2020 COVID-19 Vaccine Pfizer - Documentation Purposes Only Carlos Mk Other [facility] 09-09-2018 Rocephin 500 mg Carlos Mk Other [employer] Other 08-11-2016 Toradol per 15 mg Jose Enrique r Mk Other [employer] Other 02-09-2015 TB Test Carlos Mk Other [employer] Other 12-16-2011 tetanus toxoid, reduced diphtheria toxoid, and acellular pertussis vaccine, adsorbed Zenonopher Mk Other [facility] NEGATED: Highlighted row has not occurred! influenza, seasonal, injectable Patient Objection Jeff Jon Other [facility] Payers Date Payer Category Payer Self-pay [id number] 2020 Private Health Insurance [employer] A ETNA CHOICE POS II [id number] 2020-Present [phone] [address] [place] [address] POS [id number]. [id number] 2020 Private Health Insurance [id number] .[id number]. [id number] 2018 Unknown [id number] 1965 Unknown [id number] 2.16.840.1.916023.3.579.2. 182 1967 Unknown [id number] 2.16.840.1.272681.3.579.2. 593 1967 Unknown [id number] 2.16.840.1.967080.3.579.2. 593 1967 Unknown [id number] 2.16.840.1.586197.3.579.2. 593 1967 Unknown [id number] 2.16.840.1.420209.3.579.2. 593 1967 Unknown [id number] 2.16.840.1.454310.3.579.2. 593 1967 Unknown [id number] 2.16.840.1.346213.3.579.2. 593 1967 Unknown [id number] 2.16.840.1.140869.3.579.2. 593 1967 Unknown [id number] 2.16.840.1.479940.3.579.2. 593 1967 Unknown [id number] 2.16.840.1.773862.3.579.2. 593 1967 Unknown [id number] 2.16.840.1.930217.3.579.2. 356 1967 Unknown [id number] 2.16.840.1.959908.3.579.2. 356 1967 Unknown [id number] 2.16.840.1.483649.3.579.2. 356 1967 Unknown [id number] 2.16.840.1.161118.3.579.2. 727 1967 Unknown [id number] 2.16.840.1.804806.3.579.2. 1259 1967 Unknown [id number] 2.16.840.1.933133.3.579.2. 1259 -22-1966 Unknown [id number] 2.16.840.1.468459.3.579.2. 1258 1967 Unknown [id number] 2.16.840.1.880171.3.579.2. 1258 1967 Unknown [id number] 2.16.840.1.030713.3.579.2. 1258 1967 Unknown [id number] 2.16.840.1.849834.3.579.2. 1258 1967 Unknown [id number] 2.16.840.1.359365.3.579.2. 1258 1967 Unknown [id number] 2.16.840.1.456401.3.579.2. 1258 1967 Unknown [id number] 2.16.840.1.260775.3.579.2. 1258 1967 Unknown [id number] 2.16.840.1.799255.3.579.2. 1967 Unknown [id number] 2.16.840.1.524700.3.579.2. 1967 Unknown [id number] 2.16.840.1.267524.3.579.2. 1967 Unknown [id number] 2.16.840.1.035782.3.579.2. 196 1959 Private Health Insurance [id number] 2.16.840.1.307569.19 Unknown [employer] Private Health Insurance [id number] Unknown [id number] 2.16.840.1.821697.3.579.2. 531 Unknown [id number] 2.16.840.1.213475.3.579.2. 531 Unknown [id number] 2.16.840.1.162180.3.579.2. 531 Unknown [id number] 2.16.840.1.824455.3.579.2. 531 Social History Date Type Detail Facility Start: 09-20-2015 End: 08-01-2024 Tobacco smoking status NHIS Never smoked tobacco [facility] Start: 09-20-2015 Tobacco use and exposure Smokeless tobacco non-user [facility] Start: 06-16-2021 End: 10-07-2021 Alcohol intake Not Asked [facility] Start: 1965 Sex Assigned At Female [facility] Start: 09-23-2021 End: 10-07-2021 Exposure to SARS-CoV-2 (event) Not sure [facility] Start: 10-13-2021 Alcohol intake Ex-drinker (finding) [facility] Start: 10-13-2021 History SDOH Alcohol Comment rarely [facility] Sex Assigned At [facility] Start: 06-03-2024 End: 10-24-2024 Sex Female (finding) [facility] Functional Status Date Assessment Result Facility 05-10-2023 Functional Status N/A [facility] Clinical Notes 12-16-2011 to 02-09-2025 Note Date & Type Note Facility 02-09-2025 Note [facility] Subjective Canelo Pathak is a 59 y.o. year old female patient being for a follow up S/P angiogram. Patient states she is defiantly better, patient states she is still having the same symptoms, they have lessened. Patient states she still has nausea, fatigue, palpitations, dizziness all have greatly improved. Patient Active Problem List Diagnosis Abnormal taste in mouth Acid reflux Allergic rhinitis due to animal hair and dander Anxiety Asthma Binge eating disorder BMI 50.0-59.9, adult ([facility]) CFS (chronic fatigue syndrome) Cholesteatoma of attic of ear, right Diabetes ([facility]CC) Elevated blood pressure reading Fibromyalgia Gastroesophageal reflux disease with esophagitis Heraclio's disease Hepatitis Hyperlipidemia Hypertension Hypothyroidism Metabolic syndrome Asymmetric SNHL (sensorineural hearing loss) Osteoarthritis Other assistant terminal 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 Visit of 02/09/2025: She is seen in follow up. Following last visit with me I ordered a cardiac catheterization. This was performed on 01/08/[address] Blanton and showed normal coronary arteries with elevated filling and pulmonary pressures consistent with heart failure with preserved ejection fraction. she was started on furosemide and Farxiga. Today she reports that she has been doing much better on both. She has stopped taking metformin which had caused her diarrhea. The shortness of breath, wheezes and leg swelling have improved significantly. She has a lot of joint and back pain issues and has a lot of questions regarding their management. Review of Systems Constitutional: Positive for malaise/fatigue. Cardiovascular: Positive for chest pain (after palpitation feels chest heaviness), dyspnea on exertion, leg swelling and palpitations. Respiratory: Positive for sleep disturban (more content not included)... [facility] 01-05-2025 Note [facility] Subjective Canelo Pathak is a 59 [...] Asymmetric SNHL (sensorineural hearing loss) Osteoarthritis Other shelter (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 Palpitation Polyarthralgia Pulsatile tinnitus [...] and GERD who was admitted to the [facility] on 08/05/2024 with chest pressure and [...] is not ill-appearing. (more content not included)... [facility] 11-27-2024 Evaluation note Authored November 27, 2024 12:3 4pm The above note written by __ _Gail Saul____ acting as human recorder, note dictated by Dr. Jones .I performed the above HPI, ROS, and Examination. I formulated and dictated the treatment plan and was present for entire encounter. Jeff Jon D.O. [facility] Authored October 24, 2024 10:35 am The above note written by __ _Gail Saul____ acting as human recorder, note dictated by Dr. Jones .I performed the above HPI, ROS, and Examination. I formulated and dictated the treatment plan and was present for entire encounter. Jeff Jon D.O. [facility] Work Phone: 1(379) 480-297504-14-2025 Evaluation note* [facility] Authored September 01, 2024 3:4 5pm The above note written by __ _Gail Saul____ acting as human recorder, note dictated by Dr. Jones .I performed the above HPI, ROS, and Examination. I formulated and dictated the treatment plan and was present for entire encounter. Jeff Jon D.O. [facility] Work Phone: 1(602) 536-390504-14-2025 Evaluation note* Author Jeff Jon [facility] Authored September 01, 2024 3:4 5pm The above note written by __ _Gail Saul____ acting as human recorder, note dictated by Dr. Jones .I performed the above HPI, ROS, and Examination. I formulated and dictated the treatment plan and was present for entire encounter. Jeff Jon D.O. Author Jeff Jon [facility] Authored October 24, 2024 10:35 am The above note written by __ _Gail Saul____ acting as human recorder, note dictated by Dr. Jones .I performed the above HPI, ROS, and Examination. I formulated and dictated the treatment plan and was present for entire encounter. Jeff Jon D.O. [facility] Work Phone: 1(665) 485-643504-07-2025 [facility] Subjective Canelo Pathak is a 58 y.o. year old female patient being seen to establish care. Patient complains of chest pain and palpitations. Patient states she was in In patient 2 weeks ago at [facility] due to the palpitation. Patient she states she has had no change in how she feels. Still feeling palpitations, fatigued, SOB. Patient Active Problem List Diagnosis Abnormal taste in mouth Acid reflux Allergic rhinitis due to animal hair and dander Anxiety Asthma Binge eating disorder BMI 50.0-59.9, adult ([facility]) CFS (chronic fatigue syndrome) Cholesteatoma of attic of ear, right Diabetes ([facility]) Elevated blood pressure reading Fibromyalgia Gastroesophageal reflux disease with esophagitis Heraclio's disease Hepatitis Hyperlipidemia Hypertension Hypothyroidism Metabolic syndrome Asymmetric SNHL (sensorineural hearing loss) Osteoarthritis Other assistant terminal 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 Palpitation Polyarthralgia Pulsatile tinnitus of right ear Right-sided tinnitus Seasonal allergies Type 2 diabetes mellitus with hyperglycemia, without long-term current use of insulin ([facility]) UTI (urinary tract infection) Vitamin D deficiency [...] and GERD who was admitted to the [facility] on 08/05/2024 with chest pressure and [...] Disp: , Rfl: cet (more content not included)...[facility] Radiology Diagnostic study [facility] [place] [address] [place] [address] CT Scan Report Signed Patient: Canelo Pathak MR#: [id number] : 1965 Acct:[id number] Age/Sex: 58 / F ADM Date: 5 Loc: CT Room: Type: [facility] Attending Dr: Carol Alegria DO Copies [...] Cameron Worthy M.D.07/30/2024 1:18 PM Dictation Location: [place] [address] Transcribed By: FLORINA 07/30/24 1318 Dictated By: Cameron Worthy MD 07/30/24 1314 Signed By: 07/30/24 1318 [facility] Work Phone: 1(222) 693-114702-06-2025 Chief complaint+Reason for visit Narrative * Chief [...] allergies September 08, 2024 9:[address] [facility] Work Phone: 1(661) 817-970301-24-2025 Evaluation note* Author Jeff Jon [facility] Authored June 13, 2024 2 :07pm The above note written by __ _Gail Saul____ acting as human recorder, note dictated by Dr. Jones .I performed the above HPI, ROS, and Examination. I formulated and dictated the treatment plan and was present for entire encounter. Jeff Jon D.O. [facility] Work Phone: 1(583) 714-874601-24-2025 Evaluation note* Author Jeff Jon [facility] Authored June 13, 2024 1 :07pm The above note written by __ _Gail Saul____ acting as human recorder, note dictated by Dr. Jones .I performed the above HPI, ROS, and Examination. I formulated and dictated the treatment plan and was present for entire encounter. Jeff Jon D.O. [facility] Work Phone: 1(262) 314-712011-22-2024 Evaluation note* Author Jeff Jon [facility] Authored April 11, 2024 4:16pm I performed the above HPI, R OS, and Examination. I formulated and dictated the treatment plan and was present for entire encounter. Jeff Jon D.O. [facility] Work Phone: 1(816) 682-417411-22-2024 Evaluation note* Author Jeff Jon [facility] Authored April 11, 2024 4:16pm I performed the above HPI, R OS, and Examination. I formulated and dictated the treatment plan and was present for entire encounter. Jeff Jon D.O. Author Jeff Jon [facility] Authored June 13, 2024 1 :07pm The above note written by __ _Gail Saul____ acting as human recorder, note dictated by Dr. Jones .I performed the above HPI, ROS, and Examination. I formulated and dictated the treatment plan and was present for entire encounter. Jeff Jon D.O. [facility] Work Phone: 1(626) 430-949706-10-2024 Evaluation note* Author Jeff Jon [facility] Authored October 29, 2023 3:26 pm The above note written by __ _Gail Saul____ acting as human recorder, note dictated by Dr. Jones .I performed the above HPI, ROS, and Examination. I formulated and dictated the treatment plan and was present for entire encounter. Jeff Jon D.O. Author Jeff Jon [facility] Authored September 26, 2023 3:16pm The above note written by __ _Gail Saul____ acting as human recorder, note dictated by Dr. Jones .I performed the above HPI, ROS, and Examination. I formulated and dictated the treatment plan and was present for entire encounter. Jeff Jon D.O. [facility] Work Phone: 1([phone]) 585-426206-10-2024 Evaluation note* Author Jeff Jon [facility] Authored October 29, 2023 3:26 pm The above note written by __ _Gail Saul____ acting as human recorder, note dictated by Dr. Jones .I performed the above HPI, ROS, and Examination. I formulated and dictated the treatment plan and was present for entire encounter. Jeff Jon D.O. [facility] Work Phone: 1(959) 293-913805-08-2024 Hospital Discharge instructionsAmbulatory Orders* Referral to Pain Management Time Frame: 09/26/23, Location: None [facility] Work Phone: 1(615) 434-699504-09-2024 Evaluation note* Author Jeff [facility] Authored August 28, 2023 11:5 9am The above note written by __ _Gail Saul____ acting as human recorder, note dictated by Dr. Jones .I performed the above HPI, ROS, and Examination. I formulated and dictated the treatment plan and was present for entire encounter. Jeff Jon D.O. [facility] Work Phone: 1(777) 850-508504-09-2024 Evaluation note* Author Jeff Jon [facility] Authored August 28, 2023 11:5 9am The above note written by __ _Gail Saul____ acting as human recorder, note dictated by Dr. Jones .I performed the above HPI, ROS, and Examination. I formulated and dictated the treatment plan and was present for entire encounter. Jeff Jon D.O. Author Jeff Jon [facility] Authored September 26, 2023 3:16pm The above note written by __ _Gail Saul____ acting as human recorder, note dictated by Dr. Jones .I performed the above HPI, ROS, and Examination. I formulated and dictated the treatment plan and was present for entire encounter. Jeff Jon D.O. [facility] Work Phone: 1(160) [phone] Evaluation note* Encounter Date Diagnosis Assessment Notes Treatment Notes Treatment Clinical Notes Jun, Elevated blood pressure (ICD-10 - R03.0) [employer] Other 12-21-2023 Evaluation + Plan noteExtracted from: [...] with any questions or concerns that arise. [facility]11-15-2023 Evaluation note* Encounter Date Diagnosis Assessment Notes Treatment Notes Treatment Clinical Notes Mar, Other chronic pain (ICD-10 - G89.29) Mar, GERD (gastroesophageal reflux disease) (ICD-10 - K21.9) Mar, Asthma (ICD-10 - J45.909) [facility] Other 10-30-2023 Evaluation note* Encounter Date Diagnosis Assessment Notes Treatment Notes Treatment Clinical Notes Feb, Asthma (ICD-10 - J45.909) Feb, Seasonal allergies (ICD-10 - J30.2) Feb, GERD (gastroesophageal reflux disease) (ICD-10 - K21.9) [facility] Other 10-05-2023 Evaluation note* Encounter Date Diagnosis [...] take the medication. She is going to [place] next week, so she will not make [...] (ICD-10 - K21.9) Continue to follow with child psychiatrist and take above medication as directed. Feb, Other shelter (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 (ICD-10 - Z79.899) Feb, [...] 27.0. She did try to contact her event promotions coordinator who prescribed the once weekly dose to [...] was schedul ed for surgery with Dr. Jiang but states that her pre surgical testing did not go well but in the meantime of getting that taken care of she got very sick and her issue cleared up so Dr. Jiang did not have to do the surgery. [...] variant or something in the balance center. [facility] Other 06-06-2023 Evaluation note* Encounter Date Diagnosis [...] understanding and is agreeable to treatment plan. [facility] Other 05-30-2023 Evaluation note* Encounter Date Diagnosis Assessment Notes Treatment Notes Treatment Clinical Notes September, Asthma (ICD-10 - J45.909) September, Seasonal allergies (ICD-10 - J30.2) September, GERD (gastroesophageal reflux disease) (ICD-10 - K21.9) [facility] Other 04-26-2023 Evaluation note* Encounter Date Diagnosis Assessment Notes Treatment Notes Treatment Clinical Notes Aug, Asthma (ICD-10 - J45.909) Aug, Seasonal allergies (ICD-10 - J30.2) Aug, GERD (gastroesophageal reflux disease) (ICD-10 - K21.9) [facility] Other 03-24-2023 Evaluation note* Encounter Date Diagnosis [...] water inside ear after shower may use business division chair on lowest cool setting to blow dry. Follow up with PCP or UC if no improvement in the next 2-3 days. Immediate eval for severe ear pain, severe headache, neck pain/stiffness, pain, erythema, or swelling behind the ear, fever, N/V, hearing loss, fever, or any other new or concerning symptoms. Patient verbalizes understanding and is agreeable to treatment plan. [facility] Other 03-20-2023 Evaluation note* Encounter Date Diagnosis [...] Other 10:38 AM - 10:4 6 AM [facility] Other 02-22-2023 Evaluation note* Encounter Date Diagnosis Assessment Notes Treatment Notes Treatment Clinical Notes Jun, Elevated blood pressure (ICD-10 - R03.0) [facility] Other 02-22-2023 Evaluation note* Encounter Date Diagnosis [...] above medication daily as directed. Jun, Other shelter (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 (ICD-10 - Z79.899) Jun, [...] her to discuss this pain with her SPIRAL BINDER when seen in July (2022) and her gastro doctor when she has the colonoscopy. She voices that she had endometriosis in the past and was told it could return, this does feel similar to that, so she will discuss it with her event promotions coordinator. Jun, Elevated blood pressure (ICD-10 - R03.0) [...] the intestine. She is following with a SWITCHBOARD OPERATOR ASSISTANT (Cass Cheney) in [place], [place]. She has to do a stool [...] do this. She has not seen an SPIRAL BINDER in a year and a half but [...] I did recommend she buy Tarango at [facility] and apply this to her hands at night. [facility] Other 01-25-2023 Evaluation note* Encounter Date Diagnosis Assessment Notes Treatment Notes Treatment Clinical Notes May, Asthma (ICD-10 - J45.909) [facility] Other 11-22-2022 Evaluation note* Encounter Date Diagnosis Assessment Notes Treatment Notes Treatment Clinical Notes Mar, Hypothyroidism, unspecified (ICD-10 - E03.9) She voices that she is not going to return to see the chief medical technologist for evaluation. She voices that her results [...] once weekly that was ordered by her SPIRAL BINDER and she would like this office to take over filling this prescription. I will order a Vitamin D level to be done in three months. Mar, Other shelter (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 (ICD-10 - Z79.899) Mar, [...] She agrees and a referral is provided. [facility] Other 11-01-2022 Evaluation note* Encounter Date Diagnosis Assessment Notes Treatment Notes Treatment Clinical Notes Mar, Hypothyroidism, unspecified (ICD-10 - E03.9) [facility] Other 11-01-2022 Evaluation note* Encounter Date Diagnosis Assessment Notes Treatment Notes Treatment Clinical Notes Mar, Asthma (ICD-10 - J45.909) Mar, GERD (gastroesophageal reflux disease) (ICD-10 - K21.9) [facility] Other 07-19-2022 Evaluation note* Encounter Date Diagnosis Assessment Notes Treatment Notes Treatment Clinical Notes Nov, Asthma (ICD-10 - J45.909) Nov, Seasonal allergies (ICD-10 - J30.2) [facility] Other 06-02-2022 Evaluation note* Encounter Date Diagnosis [...] Again, she voices that she saw the chief medical technologist recently and was on 2 of the [...] the Fluticasone nasal spray daily. Oct, Other shelter (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 (ICD-10 - Z79.899) Oct, [...] can return to discuss this if needed. [facility] Other 05-26-2022 NoteHNO ID: [id number] Author: Anila Jimenez APRN.AND [employer]YING SUPERVISOR [employer]OOK[employer]ING Service: ? Author Type: Nurse Practitioner Type: Progress Notes Filed: 10/13/2021 4:47 PM Note Text: ENDOCRINOLOGY, DIABETES AND METABOLISM DIABETES FOLLOW UP VISIT This Team Access Model visit is a phone encounter and Canelo Pathak has consented to this virtual encounter. This is a virtual visit using [employer] video visit. It is a required patient-provider [...] - mometasone furoate(NASONEX 50 MCG/ACTUATION SPRAY) [place] twice in each nostril once daily. - cetirizine hcl(ZYRTEC 10 MG TAB) Take one(1) tablet daily. - fluticasone/salmeterol(ADVAIR DISKUS 250 MCG-50 MCG/DOSE FOR INHALATION) Take one(1) inhalation twice daily; rinse and gargle mouth with water after each use. No current facility-administered medications for this visit. Immunization History Administered Date(s) Administered COVID-19 vaccine, age 12+ yr ([employer] - PURPLE TOP) 09/02/2020 09/23/2020 Social History [...] >=60 mL/min/1.73m? 103 Corrected (more content not included)...[facility]05-26-2022 History of Present illness Narrative* Anila Jimenez APRN.AND DRYING SUPERVISOR COOKING CASING - 10/13/2021 4:15 PM EDT ENDOCRINOLOGY, DIABETES & METABOLISM DIABETES FOLLOW UP VISIT This Team Access Model visit is a phone encounter and Canelo Lawson has consented to this virtual encounter. This is a virtual visit using Progeniq video visit. It is a required patient-provider [...] daily. mometasone furoate(NASONEX 50 MCG/ACTUATION SPRAY) [place] twice in each nostril once daily. cetirizine hcl(ZYRTEC 10 MG TAB) Take one(1) tablet daily. fluticasone/salmeterol(ADVAIR DISKUS 250 MCG-50 MCG/DOSE FOR INHALATION) Take one(1) inhalation twice daily; rinse and gargle mouth with water after each use. No current facility-administered medications for this visit. Immunization History Administered Date(s) Administered COVID-19 vaccine, age 12+ yr ([employer] - [facility]) 09/02/2020 09/23/2020 Social History Tobacco Use [...] which included preparing to see the patient, [id number] patient care, completing clinical documentation, obtaining and/or reviewing separately obtained history, performing a medically appropriate examination, counseling and educating the pat ient/family/caregiver and ordering medications, tests, or procedures. Anila Jimenez APRN.[facility] [place] [facility] NoteHNO ID: [id number] Author: Leena Seymour MD Service: ? Author [...] mcg (5,000 unit) cap - Vitamin D [place] ([employer]) Take 1 capsule by mouth daily with food. - montelukast (SINGULAIR) 10 mg tablet Take 10 mg by mouth daily at bedtime. - MULTIVIT-MINERALS/FERROUS GLUC (CENTRAM-CARE ORAL) Take by mouth twice daily. - esomeprazole mag trihydrate(NEXIUM 40 MG CAP) Take one(1) capsule daily. - mometasone furoate(NASONEX 50 MCG/ACTUATION SPRAY) [place] twice in each nostril once daily. - [...] effexor. Will check routine labs. Leena Seymour [facility]05-20-2022 History of Present illness Narrative* Leena [...] 125 mcg (5,000 unit) cap Vitamin D Wortham ([employer]) Take 1 capsule by mouth daily with food. montelukast (SINGULAIR) 10 mg tablet Take 10 mg by mouth daily at bedtime. MULTIVIT-MINERALS/FERROUS GLUC (CENTRAM-CARE ORAL) Take by mouth twice daily. esomeprazole mag trihydrate(NEXIUM 40 MG CAP) Take one(1) capsule daily. mometasone furoate(NASONEX 50 MCG/ACTUATION SPRAY) [place] twice in each nostril once daily. cetirizine [...] labs. Leena Seymour MD documented in this encounterK[facility]05-16-2022 Miscellaneous Notes* Telephone Encounter - Renea Mcfarland [employer] Fire Support Planner - 10/03/2021 3:02 PM EDT Patient called in asking for routine lab orders to be placed. Patient stated she will schedule her appointment soon. Done. Asad Ansari MD documented in this encounterKet[facility]03-04-2022 NoteHNO ID: [id number] Author: Asad Ansari MD Service: ? Author Type: Physician Type: Progress Notes Filed: 07/22/2021 10:43 AM Note Text: VIRTUAL VISIT PROGRESS NOTE This is a virtual visit using [employer] video platform. It required patient-provider interaction for [...] mcg (5,000 unit) cap - Vitamin D Wortham ([employer]) Take 1 capsule by mouth daily with food. - montelukast (SINGULAIR) 10 mg tablet Take 10 mg by mouth daily at bedtime. - MULTIVIT-MINERALS/FERROUS GLUC (CENTRAM-CARE ORAL) Take by mouth twice daily. - esomeprazole mag trihydrate(NEXIUM 40 MG CAP) Take one(1) capsule daily. - mometasone furoate(NASONEX 50 MCG/ACTUATION SPRAY) [place] twice in each nostril once daily. - [...] Date(s) Administered COVID-19 vaccine, age 12+ yr ([employer] - PURPLE TOP) 09/23/2020 Labs: HbA1c. TSH. [...] 2 months - virt (more content not included)...[facility]02-14-[facility] Evaluation note* Encounter Date Diagnosis Assessment Notes Treatment Notes Treatment Clinical Notes Jun, Lumbar pain (ICD-10 - M54.50) Jun, Leg pain (ICD-10 - M79.606) bilateral Jun, Hyperlipidemia (ICD-10 - E78.5) [facility] Other 02-02-2022 Miscellaneous Notes* Telephone Encounter - Neema Neptali Adm - 06/22/2021 9:09 AM EST Patient called in requesting the results of her labs that she had completed on 06/16/2021 Canelo can be reached at [phone] (C) or can be reached through [employer]. documented in this encounterK[facility]01-27-2022 NoteHNO ID: [id number] Author: Asad Ansari MD Service: ? Author Type: Physician Type: Progress Notes Filed: 06/16/2021 1:56 PM Note Text: Last Visit: This is the first visit. Ms. Pathak is here for follow up regarding her DM Type 2 and hypothyroidism. Current Immunizations: Most Recent Immunizations Administered Date(s) Administered COVID-19 vaccine, age 12+ yr ([employer] - PURPLE TOP) 09/23/2020 PHYSICAL EXAMINATION: BP [...] mouth daily before breakfast. - Vitamin D [place] ([employer]) Take 1 capsule by mouth daily with food. - montelukast (SINGULAIR) 10 mg tablet Take 10 mg by mouth daily at bedtime. - MULTIVIT-MINERALS/FERROUS GLUC (CENTRAM-CARE ORAL) Take by mouth twice daily. - esomeprazole mag trihydrate(NEXIUM 40 MG CAP) Take one(1) capsule daily. - mometasone furoate(NASONEX 50 MCG/ACTUATION SPRAY) [place] twice in each nostril once daily. - [...] Hair?: Yes Cold Intolerance: Yes Heat Intolerance?: [facility]* Encounter Date Diagnosis Assessment Notes Treatment Notes Treatment Clinical Notes Apr, Diabetes (ICD-10 - E11.9) [facility] Other 10-27-2021 Evaluation note* Encounter Date Diagnosis Assessment Notes Treatment Notes Treatment Clinical Notes Feb, Hypothyroidism, unspecified (ICD-10 - E03.9) Feb, Polyarthralgia (ICD-10 - M25.50) [facility] Other 10-26-2021 Evaluation note* Encounter Date Diagnosis [...] to check her thyroid levels. Feb, Other shelter (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 (ICD-10 - Z79.899) Feb, [...] says by 5-6 weeks it was gone. [facility] Other 10-07-2021 Evaluation note* Encounter Date Diagnosis Assessment Notes Treatment Notes Treatment Clinical Notes Feb, Bronchitis (ICD-10 - J40) [facility] Other 10-04-2021 Evaluation note* Encounter Date Diagnosis Assessment Notes Treatment Notes Treatment Clinical Notes Feb, Asthma (ICD-10 - J45.909) Feb, GERD (gastroesophageal reflux disease) (ICD-10 - K21.9) Feb, Seasonal allergies (ICD-10 - J30.2) [facility] Other 07-28-2012 History general Narrative - Reported* Type Description Date Medical History asthma Medical History 12/16/11 Right hand x-ray Medical History 12/16/11 Blood work Lipid, CMP, CBC, T4, TSH, HGA1C (6.3) Medical History 03/11/12-stress test at [facility] Medical History Hypothyroidism Medical History 2015 mammogram Medical History 12/21/15 EKG Medical History 12/29/15 Stress Test [facility] Surgical History tonsillectomy and adenoidectomy 1977 Surgical History cholecystectomy 08/2008 Surgical History gall bladder 08/2008 Surgical History tubes in ears Surgical History laproscopic fibroid removal Surgical History hysterectomy-total Surgical History mammogram [facility] - Dr Alvarez 07/17/17 Surgical History ERCP 09/17/17 Hospitalization History gall bladder 08/2008 Hospitalization History tonsillectomy Hospitalization History tubes in ears Hospitalization History heart(over night opserva tion) 08/2007 Hospitalization History pneumonia 1999 Hospitalization History abnormal liver function test 2017 [facility] Other 07-28-2012 History general Narrative - Reported* Type Description Date Medical History asthma Medical History 12/16/11 Right hand x-ray Medical History 03/11/12-stress test at [facility] Medical History Hypothyroidism Medical History 2015 mammogram Medical History 12/21/15 EKG Medical History 12/29/15 Stress Test [facility] Surgical History tonsillectomy and adenoidectomy 1977 Surgical History cholecystectomy 08/2008 Surgical History gall bladder 08/2008 Surgical History tubes in ears Surgical History laproscopic fibroid removal Surgical History hysterectomy-total Surgical History mammogram [facility] - Dr Alvarez 07/17/17 Surgical History ERCP 09/17/17 Hospitalization History gall bladder 08/2008 Hospitalization History tonsillectomy Hospitalization History tubes in ears Hospitalization History heart(over night opserva tion) 08/2007 Hospitalization History pneumonia 1999 Hospitalization History abnormal liver function test 2018 [facility] Other 07-28-2012 History general Narrative - Reported* Type Description Date Medical History asthma Medical History 12/16/11 Right hand x-ray Medical History 03/11/12-stress test at [facility] Medical History Hypothyroidism Medical History 2015 mammogram Medical History 12/21/15 EKG Medical History 12/29/15 Stress Test [facility] Medical History spinal stenosis Surgical History tonsillectomy and adenoidectomy 1977 Surgical History cholecystectomy 08/2008 Surgical History gall bladder 08/2008 Surgical History tubes in ears Surgical History laproscopic fibroid removal Surgical History hysterectomy-total Surgical History mammogram [facility] - Dr Alvarez 07/17/17 Surgical History ERCP 09/17/17 Hospitalization History gall bladder 08/2008 Hospitalization History tonsillectomy Hospitalization History tubes in ears Hospitalization History heart(over night opserva tion) 08/2007 Hospitalization History pneumonia 1999 Hospitalization History abnormal liver function test 2017 [facility] [employer] Other Evaluation note* Diagnosis Acquired hypothyroidism- Primary Unspecified hypothyroidism Controlled type 2 diabetes mellitus without complication, without long-term current use of insulin ([facility]) documented in this encounter [facility] note* Diagnosis Fibromyalgia- Primary Mylagia and myositis, unspecified ALDEN (generalized anxiety disorder) Generalized anxiety disorder documented in this encounter [facility] note* Diagnosis Type 2 diabetes mellitus with hyperglycemia, without long-term current use of insulin (HCC)- Primary Heraclio's disease Chronic lymphocytic thyroiditis documented in this encounter [facility] noteNo InformationNoheartland behavioral health services [employer] Other Evaluation notePassadumkeag Or[employer]in Other Evaluation note* Diagnosis Onset Date Resolution Status Anxiety acute Asthma acute Diabetes acute Elevated blood pressure reading acute Fatigue acute GERD (gastroesophageal reflux disease) acute Hyperlipidemia acute Hypothyroidism acute Other chronic pain acute Other shelter (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 acute [place] acute Vitamin D deficiency acute [facility] Work Phone: Evaluation note* Diagnosis Onset Date Resolution Status Chronic pain acute Hip pain acute Lumbar stenosis acute Sacroiliitis acute Chronic pain acute Hip pain acute Lumbar radiculopathy acute Lumbar stenosis acute Sacroiliitis acute Chronic pain acute Lumbar radiculopathy acute Lumbosacral spondylosis acut e Sacroiliitis acute [facility] Work Phone: Evaluation note* Diagnosis Onset Date Resolution Status Chronic pain acute Hip pain acute Lumbar stenosis acute Sacroiliitis acute Chronic pain acute Hip pain acute Lumbar radiculopathy acute Lumbar stenosis acute Sacroiliitis acute Chronic pain acute Lumbar radiculopathy acute Lumbosacral spondylosis acut e Sacroiliitis acute Chronic pain acute Lumbar radiculopathy acute Lumbosacral spondylosis acut e Sacroiliitis acute [facility] Work Phone: Evaluation note* Diagnosis Onset Date Resolution Status Chronic pain acute Lumbar radiculopathy acute Lumbosacral spondylosis acut e Sacroiliitis acute Chronic pain acute Lumbar radiculopathy acute Lumbosacral spondylosis acut e Sacroiliitis acute Asthma acute GERD (gastroesophageal reflux disease) acute Seasonal allergies acute [facility] Work Phone: History general Narrative - ReportedNortCanonsburg Hospital [employer] Other Hisgujd general Narrative - Reported* Type Description Date [...] removal Surgical History hysterectomy-total Surgical History mammogram [facility] - Dr Alvarez 07/17/17 Surgical History ERCP 09/17/17 Hospitalization History gall bladder 08/2008 Hospitalization History tonsillectomy Hospitalization History tubes in ears Hospitalization History heart(over night opserva tion) 08/2007 Hospitalization History pneumonia 1999 Hospitalization History abnormal liver function test 2017 [facility] [employer] Other [employer] general Narrative - Reported* Type Description Date [...] removal Surgical History hysterectomy-total Surgical History mammogram [facility] - Dr Alvarez 07/17/17 Surgical History ERCP 09/17/17 Hospitalization History gall bladder 08/2008 Hospitalization History tonsillectomy Hospitalization History tubes in ears Hospitalization History heart(over night opserva tion) 08/2007 Hospitalization History pneumonia 2000 Hospitalization History abnormal liver function test 2017 [employer] Other Hospital course Narrative No data available for this section [facility] No data available for this section [facility] Discharge instructionsAmbulatory Orders* Referral to Orthopedics Time Frame: 06/26/24, Location: None [facility] Work Phone: Progress note No data available for this section [facility]Reason for referral (narrative)No reason for referral information availableMercy Health [facility] Work Phone: Reason for visit Narrativereview labs, discuss multiple issues, see treatment plan for further informationNoheartland behavioral health services [employer] Other Reason for visit Narrativereview labs, discuss multiple issues, see treatment planNoheartland behavioral health services [employer] Other Summary Purpose Family History No Family [...] Time Advance Directives No September 14, 018 8:20pm Reason for Referral Specialty Diagnoses / Procedures Referred By Rosa mcelroy Referred To Contact [facility] [place] Diagnoses Fibromyalgia Procedures CONSULT TO [facility] (CHRON[facility] PAIN) OFFICE/OUTPATIENT [facility] 60-74 MINUTES Leena Seymour MD [address] [place] [address] Referral ID Status Reason Start Date Expiration Date Visits Requested Visits Authorized [id number] Pending Review PCP Requested Referral 10/07/2021 10/07/2022 1 1 Reason appt pt needs cons ult to discuss weight loss, diabetes Diagnosis 1 Diabetes (E11.9) Referral Organization [facility] Family Medicin e Saman Referring Provider First Name Jeff Referring Provider Last Name Dontrell Referring Provider Specialty Family Prac debbi Referred Organization [facility] Referred Provider Carl Valdivia Jr. Referred Address [address],[facility] [address],[place], [place],[address] Referred Provider Specialty Internal Med icine Referral Priority Routine General Notes Svetlana Talbert 03/15/2021 01:33:19 PM > [facility] form faxed. pt understands she will be contacted to schedule the appt Reason appt pt needs scre ening colonoscopy Diagnosis 1 Colon cancer screeni ng (Z12.11) Referral Organization [facility] Family Medicin e Delong Referring Provider First Name Jeff Referring Provider Last Name Dontrell Referring Provider Specialty Family Prac debbi Referred Organization [facility] Gastroenterolo gy Referred Provider Howard Kunz Referred Address [address] ,[place], [place],[address] Referred Provider Specialty Gastroentero logy Referral Priority Routine General Notes Svetlana Talbert 04/11/2022 01:25:30 PM > referral sent p2p. pt understands she will be contacted to schedule this appt. Reason appt pt will call to schedule this appt consult for continued ear pain despite antibiotic treatment Diagnosis 1 Right acute otitis m edia (H66.91) Referral Organization [facility] Family Ryanne Davison Referring Provider First Name Jeff Referring Provider Last Name Dontrell Referring Provider Specialty Family Prac debbi Referred Organization [facility] Referred Provider Jennie Jiang Referred Address ,[place], [place],[address] Referred Provider Specialty Ear, Nose an d [...] disease) Hyperlipidemia Hypothyroidism Other chronic pain Other shelter (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 [place] Vitamin D deficiency Chief Complaint review labs BP/discuss meds/ENT Reason for Visit Anxiety Asthma Diabetes Elevated blood pressure reading Fatigue GERD (gastroesophageal reflux disease) Hyperlipidemia Hypothyroidism Other chronic pain Other shelter (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 [place] Vitamin D deficiency Asymmetrical sensorineural hearing loss Chronic pain Elevated blood pressure reading Tinnitus Chief Complaint review labs BP/discuss meds/ENT review thyroid labs Reason for Visit Anxiety Asthma Diabetes Elevated blood pressure reading Fatigue GERD (gastroesophageal reflux disease) Hyperlipidemia Hypothyroidism Other chronic pain Other assistant terminal 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 JEFF LANDIN M48.061 M25.559 FOLLOW UP AFTER IMAGING right [...] 2024 10:24am GERD (gastroesophageal reflux disease) F [facility] 2024 10:24am Nausea July 16, 2024 10:24am [...] 2024 10:24am GERD (gastroesophageal reflux disease) F [facility] 2024 10:24am Nausea July 16, 2024 10:24am [...] 08, 2024 9:58am telephone/cough/green phlegm October 24, 10:11am Reason for Visit Admit Date Abnormal [...] 9:58am telephone/cough/green phlegm October 24, 025 10:11am Chief Complaint Admit Date hosp f/u palpitations September 01, 2024 2 :39pm follow up after a recent PCP visit September 08, 2024 9:58am telephone/cough/green phlegm October 24, 2 025 10:11am review labs November 27, 2024 [...] section and content) DATE CREATED AUTHOR 10/10/2018 [facility] DATE CREATED AUTHOR AUTHOR'S ORGANIZ ATION 05/13/2022 [facility] DATE CREATED AUTHOR AUTHOR'S ORGANIZ ATION 09/15/2022 [facility] DATE CREATED AUTHOR AUTHOR'S ORGANIZ ATION 12/19/[address] [facility] DATE CREATED AUTHOR AUTHOR'S ORGANIZ ATION 10/14/2023 [facility] DATE CREATED AUTHOR AUTHOR'S ORGANIZ ATION 10/24/2023 [facility] DATE CREATED AUTHOR AUTHOR'S ORGANIZ ATION 01/31/2024 [facility] DATE CREATED AUTHOR AUTHOR'S ORGANIZ ATION 11/30/2024 [facility] DATE CREATED AUTHOR AUTHOR'S ORGANIZ ATION 02/11/2025 [facility] Source Comments (unrecognize d section and content) In the event this informatio n is protected by the Federal Confidentiality of Alcohol and Drug Abuse Patient Records regulations: The Federal rules restrict any use of the information to criminally investigate or prosecute any alcohol or drug abuse patient.[facility] DaytonIn the event this information is protected by the Federal Confidentiality of Alcohol and Drug Abuse Patient Records regulations: The Federal rules restrict any use of the information to criminally investigate or prosecute any alcohol or drug abuse patient.[facility] DaytonIn the event this information is protected by the Federal Confidentiality of Alcohol and Drug Abuse Patient Records regulations: The Federal rules restrict any use of the information to criminally investigate or prosecute any alcohol or drug abuse patient.[facility] DaytonIn the event this information is protected by the Federal Confidentiality of Alcohol and Drug Abuse Patient Records regulations: The Federal rules restrict any use of the information to criminally investigate or prosecute any alcohol or drug abuse patient.[facility] DaytonIn the event this information is protected by the Federal Confidentiality of Alcohol and Drug Abuse Patient Records regulations: The Federal rules restrict any use of the information to criminally investigate or prosecute any alcohol or drug abuse patient.[facility] Reason for Visit (unrecogniz ed section and content) Reason Comments Lab Orders Reason Comments Thyroid Problem Diabetes Reason Comments Appointment Reason Comments Patient Question Care Teams (unrecognized sec tion and content) Team Status: Active Member Role Status Zach Jon DO Primary Care Provider Active Team Status: Inactive Member Role Status Zach Jon DO Primary Care Provider Active S tart: July 16, 2024 End: July 16, 2024 Carol Alegria DO Attending Provider Active St art: July 16, 2024 End: July 16, 2024 Team Status: Inactive Member Role Status Zach Jon DO Primary Care Provider Active S tart: July 30, 2024 End: July 30, 2024 Carol Alegria DO Attending Provider Active St art: July 30, 2024 End: July 30, 2024 Team Status: Inactive Member Role Status Zach Jon DO Primary Care Provider Active S tart: August 01, 2024 End: August 01, 2024 Carol Alegria DO Attending Provider Active St art: August 01, 2024 End: August 01, 2024 Team Status: Active Member Role Status Zach Jon DO Primary Care Provide r, Attending Provider Active Start: August 05, 2024 Team Status: Active Member Role Status Zach Jon DO Primary Care Provider Active S tart: August 06, 2024 Joanne Woodall Attending Provider Active Start: [facility] 2024 Team Status: Inactive Member Role Status [...] End: September 08, 2024 Lorena Rico APRN [facility] Attending Provider Active Start: September 08, 2024 [...] End: March 26, 2024 Lorena Rico APRN [facility] Attending Provider Active Start: March [...] September 26, 2023 End: September 26, 2023 Resource Development Manager Relationship Specialty Start Date End Date Jeff Jon, DO [address] [place] [address] PCP - General Family Practice 08/01/18 Resource Development Manager Relationship Specialty Start Date End Date Jeff Jon, DO [address] [place] [address] [facility] - [facility] 08/01/18 Resource Development Manager Relationship Specialty Start Date End Date Jeff Jon, DO [address] [place] [address] [facility] - [facility] 08/01/18 Resource Development Manager Relationship Specialty Start Date End Date Jeff Jon, DO [address] [place] [address] PCP - General Family Practice 08/01/18 Resource Development Manager Relationship Specialty Start Date End Date Jeff Jon, DO [address] [place] [address] PCP - General Family Medicine 08/01/18 [...] End: December 08, 2024 Lorena Rico APRN [facility] Attending Provider Active Start: December 08, 2024 [...] BE BASED ON THE PRIMARY CLINICAL RECORDS. [employer] provides no warranty or guarantee of the accuracy or completeness of information in this document.
[2025-02-24 13:58] LABS: Hematocrit 44.8 % (36.0-48.0); Hemoglobin 15.1 g/dL (12.0-16.0); Immature Granulocytes Abs Auto 0.03 10^3/uL (0.00-0.03); Immature Granulocytes Pct Auto 0.4 % (0.0-0.5); Lymphocytes Absolute Auto 2.3 10^3/uL (1.2-3.8); Mean Corpuscular HGB Conc 33.7 g/dL (29.9-35.2); Mean Corpuscular Hemoglobin 31.0 pg (26.7-34.0); Mean Corpuscular Volume 92.0 fL (81.0-99.0); Platelet Count 360 10^3/uL (150-450); Red Blood Count 4.87 10^6/uL (4.20-5.40); White Blood Count 8.0 10^3/uL (4.0-11.0)
[2025-02-24 14:42] LABS: Alanine Aminotransferase 32 U/L (14-59); Albumin Globulin Ratio 1.1; Albumin Level 4.1 g/dL (3.4-5.0); Alkaline Phosphatase 102 U/L (46-116); Anion Gap 14.3; Aspartate Amino Transferase 22 U/L (15-37); Blood Urea Nitrogen 19.0 mg/dL (7.0-18.0); Calcium 10.0 mg/dL (8.5-10.1); Carbon Dioxide 30.0 mmol/L (21.0-32.0); Chloride 102 mmol/L (98-107); Cholesterol 130 mg/dL (<=200); Estimated GFR (African America >60 (>=60 mL/min/1.73m^2); Estimated GFR (Non-African Ame 60 (>=60 mL/min/1.73m^2); Free T3 3.08 pg/mL (2.18-3.98); Globulin 3.8 g/dL; Glucose 145 mg/dL (74-106); HDL Cholesterol 67 mg/dL (40-60); Potassium 4.3 mmol/L (3.5-5.1); Sodium 142 mmol/L (136-145); Thyroid Stimulating Hormone 0.282 uIU/mL (0.358-3.740); Total Protein 7.9 g/dL (6.4-8.2); Triglycerides 54 mg/dL (<=150); VLDL CHOLESTEROL 10.8 mg/dL
== END 2025-02-24 13:17 | disposition home or self-care (01) ==
LOC: LAB 13:17
PROVIDERS: PCP Family Medicine; Visit Provider Family Medicine
DX: E78.5 Hyperlipidemia, unspecified (principal); E88.819 Insulin resistance, unspecified; E11.9 Type 2 diabetes mellitus without complications; Z79.899 Other long term (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; E55.9 Vitamin D deficiency, unspecified; E03.9 Hypothyroidism, unspecified
CPT/HCPCS: 36415; 80053; 80061; 82043; 82306; 82570; 83036; 83525; 84439; 84443; 84481; 85025

== ENCOUNTER 2025-03-17 11:30 | Outpatient (OUT) | payer OTHER, SELFPAY ==
--- OUTSIDE RECORDS SUMMARY | 2025-03-17 11:36 | XMS_ITS | Clinical Summary ---
Author Organization Navin Fernandez [facility] Address [address], [address] [place] [address] Care Team Providers Care Ip Network Architect Name Role Phone Joe Barksdale DO Primary Care Provider Unavail able Social History Tobacco UseTypesPacks/DayYears UsedDateSmoking Tobacco: Never Assessed CommentsUnknownSex and Gender InformationValueDate RecordedSex Assigned at Not on fileLegal XfqDkfhos82/29/2019 4:54 PM EDTGender IdentityNot on fileSexual OrientationNot on file Plan of Treatment Not on file Insurance Care Teams Team MemberRelationshipSpecialtyStart DateEnd Date Joe Barksdale DO PCP - Generalmi Medicine09/17/18
--- OUTSIDE RECORDS SUMMARY | 2025-03-17 11:36 | XMS_ITS | Clinical Summary ---
Author Organization [facility] Address [address] [place] [address] Care Team Providers Care Professor Of Psychiatry Name Role Phone Joe Barksdale MD Primary Care Provider [phone] Allergies Active AllergyReactionsCriticalityNoted NeonTwqqfjksXkvvoqtvqjDfmiwmy59/27/2007 nerve difficulty ClarithromycinDiarrhea,MlorahsZbt07/27/2007 nerve difficulty GatifloxacinGI intolerance,Jrfxuea0505/16/2007 Other Reaction(s): Unknown Other Reaction(s): Unknown nerve difficulty OgcktlrtxgwgTptqbul54/27/2007 Other Reaction(s): Abdominal Pain, itches/pain nerve difficulty IyvenkgnfZnmrfwl44/27/2022 Medications MedicationSigDispense QuantityRefillsLast FilledStart DateEnd DateStatus metFORMIN (Glucophage) 500 MG tablet Take 500 mg by mouth in the morning. Take with meals.Active Fluticasone-Salmeterol (Advair Diskus) 250-50 MCG/ACT aerosol powder inhale 1 puff by inhalation route 2 times every day in the morning and evening approximately 12 hours apart InhalationActive levothyroxine (Synthroid) 175 MCG tablet take 1 tablet by oral route every day OralActive esomeprazole (NexIUM) [address] capsule Take 40 mg by mouth in the morning. Take before meals.Active cyclobenzaprine (Flexeril) 10 MG tablet Take 10 mg by mouth at bedtime.Active cetirizine (ZyrTEC) 10 MG tablet Take 10 mg by mouth in the morning.Active montelukast (Singulair) 10 MG tablet Take 10 mg by mouth at bedtime.Active clotrimazole-betamethasone (Lotrisone) cream Clotrimazole-BetamethasoneActive mometasone (Elocon) 0.1 % cream EloconActive meloxicam (Mobic) 15 MG tablet Take 15 mg by mouth in the morning.07/01/2021ctive fluticasone (Flonase) 50 MCG/ACT nasal spray Administer 2 sprays into each nostril in the morning.08/14/2022ctive cholecalciferol (Vitamin D-3) 125 MCG (5000 UT) capsule Active glimepiride (Amaryl) 1 MG tablet TAKE 1 TABLET BY MOUTH EVERY DAY WITH BREAKFAST OR THE FIRST MAIL MEAL OF THE DAY02/22/2023ctive losartan (Cozaar) 50 MG tablet 02/22/2023ctive triamterene-hydroCHLOROthiazide (Dyazide) 37.5-25 MG capsule Indications:Asymmetric SNHL (sensorineural hearing loss)Take 1 capsule by mouth in the morning. 30 capsule ctive Additional Information Patient not taking.Reported on 10/23/2023 liothyronine (Cytomel) 25 MCG tablet Take 25 mcg by mouth DailyActive mometasone (Nasonex) 50 MCG/ACT nasal spray Administer 2 sprays into each nostril DailyActive Active Problems ProblemNoted DateDiagnosed DateAcid tafcrk9210/11/20239082Jplxvry18/23/2024sthma 10/11/2023Elevated blood pressure hchwsxn9210/11/20234430Fdlmhfisf42/23/2024 Lvxvtuhrsnqaip61/23/3108Mfoqvjqrgexo67/23/4496Ajrwnczispblrh07/23/2024 Zsivbnviwkqgqb44/23/2024Other lobsterman (current) drug xceqlzu6510/11/2023 Pyqyatotlvo37/23/0683Xmajcpgvorzspn65/23/2024Seasonal enhtvsdtc97/23/2024UTI (urinary tract infection)10/11/2023Vitamin D agsavcuvsq49/23/2024symmetric SNHL (sensorineural hearing loss)09/24/2023ight-sided zubrrlrd00/06/2024iabetes 09/24/2023ulsatile tinnitus of right ear08/21/2023holesteatoma of attic of ear, right08/21/2023bnormal taste in mouth10/04/2022llergic rhinitis due to animal hair and hscibu7710/04/2022astroesophageal reflux disease with esophagitis 10/04/2022Mixed conductive and sensorineural hearing loss of right ear with restricted hearing of left ear10/04/2022Sensorineural hearing loss, bilateral 12/16/2018Binge eating kvcudrsz78/02/2016BMI 50.0-59.9, adult09/20/2015CFS (chronic fatigue syndrome)09/20/20158471Oonpqqkvynvk19/02/2016Hashimoto's disease 09/20/2015Metabolic wmmvgtko05/02/2016 Resolved Problems ProblemNoted DateDiagnosed DateResolved RvtqCzqmotjvbexvp42 Seasonal allergic rhinitis due to qjpegn11 Immunizations ImmunizationAdministration DatesNext KteRawb2912/16/2011 Family History Medical HistoryRelationNameCommentsDiabetesFatherHeart failureFather HyperlipidemiaFatherStrokeFatherPulmonary embolismMotherHyperlipidemiaSibling RelationNameStatusCommentsFatherDeceasedMotherDeceasedSibling Social History Tobacco UseTypesPacks/DayYears UsedDateSmoking Tobacco: NeverSmokeless Tobacco: Never Tobacco Cessation:Counseling Given: Not Answered Alcohol UseStandard Drinks/WeekCommentsYes1 (1 standard drink = 0.6 oz pure alcohol)RarelyCommentsUnknownSex and Gender InformationValueDate RecordedSex Assigned at WakekUhydjc37/28/2023 1:50 PM ESTLegal SexFemale 08/02/2022 6:44 PM EDTGender WfceuuhmDzpqtk89/28/2023 1:50 PM ESTSexual OrientationNot on file Last Filed Vital Signs Vital SignReadingTime TakenCommentsBlood Mfbvjalq368/8006 3:27 PM EDT Vfjhi7622 10:06 AM AZGRicwomccnzs95.3 ??C (97.3 ??F)04/30/2023 12:54 PM ESTRespiratory Lubm258507/22/2018 10:06 AM ESTOxygen Saturation--Inhaled Oxygen Concentration--Dclhlh058 kg (279 lb)10/23/2023 3:27 PM VUXGujtzi367.1 cm (5' 5 ) 10/23/2023 3:27 PM EDTBody Mass Index46.43010/23/2023 3:27 PM EDT Plan of Treatment Not on file Insurance Care Teams Team MemberRelationshipSpecialtyStart DateEnd Date Joe Barksdale MD [address] [place] [id number] PCP - GeneralFavaly Medicine10/18/22
--- OUTSIDE RECORDS SUMMARY | 2025-03-17 11:36 | XMS_ITS | Clinical Summary ---
Author Organization [facility] Address [address] [place] [address] Phone Care Team Providers Care District Sales Coordinator Name Role Phone Joe Barksdale DO Primary Care Provider [phone] Social History Tobacco UseTypesPacks/DayYears UsedDateSmoking Tobacco: Never Assessed CommentsUnknownSex and Gender InformationValueDate RecordedSex Assigned at Not on fileLegal FmoGlxrct46/25/2022 1:13 PM ESTGender IdentityNot on fileSexual OrientationNot on file Plan of Treatment Health MaintenanceDue DateLast DoneCommentsCT Aisvubdtltvw79/23/1968Colonoscopy 1967Colorectal Cancer Jradogbtc60/23/1968FIT-DNA (Cologuard)1967FIT 1967HIV Pgdxtsbdx93/23/1968Lipid Panel09/11/19672834Hhwpolyfyohhk20/23/1968 Yearly Adult Etkqzlol77/23/1968MMR Vaccines (1 of 1 - Standard series)09/10/1968 Hepatitis C Akugtxzne84/23/1986Hepatitis B Vaccines (1 of 3 - 19+ 3-dose series) 09/10/1986Cervical Cancer Wdrelwjjb25/23/1989HPV/Mifrvd7309/10/1988Pap Smear 09/10/1988DTaP/Tdap/Td Vaccines (1 - Tdap)09/10/19897674Xnrikuwai36/23/2008 Pneumococcal Vaccine (1 of 1 - PCV)09/10/2017Zoster Vaccines (1 of 2)09/10/2017 Influenza Vaccine (#1)2024OVID-19 Vaccine (1 - 2024- season)2025 HIB VaccinesAged OutNo longer eligible based on patient's age to complete this topicHPV VaccinesAged OutNo longer eligible based on patient's age to complete this topicHepatitis A VaccinesAged OutNo longer eligible based on patient's age to complete this topicIPV VaccinesAged OutNo longer eligible based on patient's age to complete this topicMeningococcal VaccineAged OutNo longer eligible based on patient's age to complete this topicRotavirus VaccinesAged OutNo longer eligible based on patient's age to complete this topic Care Teams Team MemberRelationshipSpecialtyStart DateEnd Date Joe aBrksdale DO [facility]09/27/22
--- OUTSIDE RECORDS SUMMARY | 2025-03-17 11:36 | XMS_ITS | Clinical Summary ---
Author Organization [facility] [place] Address [address] [place] [address] Care Team Providers Care Humanities And Languages Professor Name Role Phone Joe Barksdale Primary Care Provider [phone] Allergies Active AllergyReactionsCriticalityNoted DateCommentsGatifloxacinItching 05/16/2007 Other Reaction(s): Unknown nerve difficulty Medications MedicationSigDispense QuantityRefillsLast FilledStart DateEnd DateStatus albuterol 90 mcg/actuation inhaler Inhale 1 puff every 4 (four) hours if needed.5Active cetirizine (ZyrTEC) 10 mg tablet Take 10 mg by mouth in the morning.05/16/2007ctive colestipol (Colestid) 1 gram tablet Take 1 g by mouth in the morning.01/13/2024ctive cyclobenzaprine (Flexeril) 10 mg tablet Take 10 mg by mouth if needed in the morning and at bedtime.Active esomeprazole (NexIUM) [address] capsule Take 40 mg by mouth before breakfast.Active estrogens, conjugated, (Premarin) 0.45 mg tablet Take 0.45 mg by mouth in the morning.02/22/2011ctive fluticasone propion-salmeteroL (Advair Diskus) 250-50 mcg/dose diskus inhaler Inhale 1 puff two times daily.05/16/2007ctive glimepiride (Amaryl) 1 mg tablet Take 1 mg by mouth before breakfast.02/22/2023ctive levothyroxine (Synthroid, Levoxyl) 100 mcg tablet Take 200 mcg by mouth before breakfast.10/13/2021ctive montelukast (Singulair) 10 mg tablet Take 10 mg by mouth at bedtime.02/22/2011ctive atorvastatin (Lipitor) 20 mg tablet Indications:Mixed hyperlipidemiaTake 2 tablets (40 mg) by mouth in the evening. 180 tablet ctive Additional Information Patient taking differently:40 mg oralDaily, Reported on 02/09/2025 cholecalciferol (Vitamin D-3) 50 MCG (2000 UT) tablet Take 2,000 Units by mouth in the morning.Active metFORMIN XR (Glucophage-XR) 500 mg 24 hr tablet Take 1,000 mg by mouth daily with evening meal.07/22/2021ctive dapagliflozin propanediol (Farxiga) 10 mg Indications:Cardiovascular stress test abnormalTake 1 tablet (10 mg) by mouth in the morning. 90 tablet ctive furosemide (Lasix) 40 mg tablet Indications:Cardiovascular stress test abnormalTake 1 tablet (40 mg) by mouth in the morning. 90 tablet ctive aspirin 81 mg chewable tablet Indications:Other chest painChew 1 tablet (81 mg) once daily as directed. 90 tablet ctive dilTIAZem CD (Cardizem CD) 240 mg 24 hr capsule Indications:Primary hypertensionTake 1 capsule (240 mg) by mouth once daily as directed. 90 capsule ctive isosorbide mononitrate ER (Imdur) 60 mg 24 hr tablet Indications:Cardiovascular stress test abnormal,Other chest painTake 1 tablet (60 mg) by mouth once daily as directed. Do not crush or chew. 90 tablet ctive Additional Information Patient not taking.Reported on 02/09/2025 atorvastatin (Lipitor) 40 mg tablet Indications:Mixed hyperlipidemiaTake 1 tablet (40 mg) by mouth at bedtime. 90 tablet ctive Additional Information Patient not taking.Reported on 02/09/2025 omeprazole (PriLOSEC) [address] capsule Take 40 mg by mouth before breakfast. Do not crush or chew.Active spironolactone (Aldactone) 25 mg tablet Indications:Chronic diastolic congestive heart failure (CMS/HCC),Primary hypertensionTake 0.5 tablets (12.5 mg) by mouth in the morning. 45 tablet 309/509/6Active Active Problems ProblemNoted DateDiagnosed DateShortness of ybmavy2301/05/2025Other chest pain 01/05/2025ardiovascular stress test fisoqvqb09/18/2025id fpbgrk3310/11/2023 Ufrutcz8810/11/20235384Fetppg29/23/2024Elevated blood pressure ywzuaqm8010/11/2023 Eftkkmiip73/23/2239Lbjsrzacmgtetk32/23/0598Eabobevnngvv28/23/2024Hypothyroidism 10/11/20230384Zcqkedikejdigt89/23/2024Other jail (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 10/11/20239621Drooaamvblt30/23/3404Shgduygsyelumj75/23/2024Seasonal allergies 10/11/2023UTI (urinary tract infection)10/11/2023Vitamin D kjuqcxcuve92/23/2024 Demospvv38/06/2024symmetric SNHL (sensorineural hearing loss)09/24/2023ight- sided bemirmpk13/06/2024holesteatoma of attic of ear, right08/21/2023ulsatile tinnitus of right ear08/21/2023bnormal taste in mouth10/04/2022llergic rhinitis due to animal hair and iciacm3710/04/2022astroesophageal reflux disease with rfbfgebqqeb97/17/2023Type 2 diabetes mellitus with hyperglycemia, without long-term current use of qjfrumt7110/11/2021inge eating uqmbnwen69/02/2016BMI 50.0-59.9, adult09/20/2015CFS (chronic fatigue syndrome)09/20/2015Fibromyalgia 09/20/2015Hashimoto's wfletuo8209/20/2015Metabolic hzkhhrto92/02/2016 Encounters DateTypeDepartmentCare XydlOtaybnhvety76/29/2025Telephone [facility] [address] [place] [address] Yulia Huffman MA 02/09/2025 2:[address] [facility] [address] [place] [address] Ambrose Espino MD Chronic diastolic congestive heart failure (CMS/HCC) (Primary Dx); Primary hypertension; Mixed qdufssjziiqvow56/15/2025Telephone [facility] [address] [place] [address] Yulia Huffman MA 01/12/2025Telephone [facility] [address] [place] [address] Betsy Peters MA 01/08/2025 8:30 AM EDT - 01/08/2025 9:30 AM EDTSurgery [facility] [address] [place] [address] Won Blanton MD Coronary rwirpumbkhs58/21/2025 7:06 AM EDT - 01/08/2025 11:33 AM EDTHospital Encounter [facility] [address] [place] [address] Won Blanton MD Shortness of breath; Other chest pain; Cardiovascular stress test abnormal Discharge Disposition: Home or Self Care ()01/08/2025Orders Only [facility] [address] [place] [address] Renee Vaughn RN Hypertension (Primary Dx)01/08/20257371Hlsqfm47/18/2025 10:[address] [address] [place] [address] Ambrose Espino MD Cardiovascular stress test abnormal (Primary Dx); Other chest pain; Shortness of breath; Primary hypertension; Mixed hyperlipidemia; Awgywolcrsmx06/18/9622Obwjip41/18/2025Orders Only [facility] [address] [place] [address] Rosario Ac MD 12/29/2024Orders Only [facility] [address] [place] [address] Provider, MD Rosario from Last 3 Months Family History Medical HistoryRelationNameCommentsHeart attackFatherKidney diseaseFather Pulmonary embolismMotherRelationNameStatusCommentsBrotherAliveFatherDeceased MotherDeceased Social History Tobacco UseTypesPacks/DayYears UsedDateSmoking Tobacco: NeverSmokeless Tobacco: Never Tobacco Cessation:Counseling Given: Not Answered Alcohol UseStandard Drinks/WeekCommentsYes0 (1 standard drink = 0.6 oz pure alcohol)occasionalCommentsNoSex and Gender InformationValueDate Recorded Sex Assigned at FlgrkGqfvuf78/13/2025 2:06 PM EDTLegal KfeRgukyi71/19/2025 8:53 AM EDTGender ThzldvfcNyxxsj18/13/2025 2:06 PM EDTSexual OrientationHeterosexual or Szxmaupy58/13/2025 2:06 PM EDT Last Filed Vital Signs Vital SignReadingTime TakenCommentsBlood Ozeuvews883/8609 2:23 PM EDT Iwnnr7240 2:23 PM EDTTemperature--Respiratory Mwkf7942 11:08 AM EDTOxygen Hvpvyxwpwp15%02/09/2025 2:23 PM EDTInhaled Oxygen Concentration-- Jsgrxs572 kg (271 lb)02/09/2025 2:23 PM GMXJbvasn549.1 cm (5' 5 )02/09/2025 2:23 PM EDTBody Mass Index45. 2:23 PM EDT Plan of Treatment Health MaintenanceDue DateLast DoneCommentsCT Gabdfvmmobtz53/23/1968Colonoscopy 1967Colorectal Cancer Vgdwbokcq10/23/1968Diabetes: Hemoglobin A1C 1967FIT-DNA1967FIT1967FOBT1967Lhmmrkttwmxwo00/23/1968 Diabetes: Retinopathy Hmvxtdozf40/23/1978Depression Wewpdljgn75/23/1980Diabetes: Urine Protein Yrnwfhycn29/23/1987Hepatitis B Vaccines (1 of 3 - 19+ 3-dose series)09/10/1986Pneumococcal Vaccine: Pediatrics (0 to 5 Years) and At-Risk Patients (6 to 64 Years) (1 of 2 - PCV)09/10/1986Pap Smear09/10/1988Cervical Cancer Gldtdmggv22/23/1998HPV/Qqwqpe2809/10/19978083Wexpslmed23/23/2008Zoster Vaccines (1 of 2)09/10/2017COVID-19 Vaccine (3 - season)505/10/2020, 09/02/2020Influenza Vaccine (#1)2025dult Hgbjffg99/25/208735/, 12/16/2011HIB VaccinesAged OutNo longer eligible based on patient's age to complete this topicHPV VaccinesAged OutNo longer eligible based on patient's age to complete this topicIPV VaccinesAged OutNo longer eligible based on patient's age to complete this topicMeningococcal B VaccineAged OutNo longer eligible based on patient's age to complete this topicMeningococcal VaccineAged OutNo longer eligible based on patient's age to complete this topicRotavirus Vaccines Aged OutNo longer eligible based on patient's age to complete this topic Procedures Procedure NamePriorityDate/TimeAssociated DiagnosisCommentsRIGHT HEART CATH Ppvdygj3601/08/2025 9:05 AM EDT Shortness of breath Other chest pain Cardiovascular stress test abnormal CORONARY YKZJWPGAISGRdcahsl10/21/2025 9:05 AM EDT Shortness of breath Other chest pain Cardiovascular stress test abnormal POCT HBO2%Alnmtrw6901/08/2025 8:39 AM EDT ECG 12-IPIGDcgxnny40/21/2025 8:13 AM EDT COMPLETE TRANSTHORACIC ECHO (TTE) W/WO IMAGING AGENT, STRAIN, 3D, BUBBLE STUDY Ojznhin3312/29/2024 8:06 AM EDTLEXISCAN STRESS MYOCARDIAL PERFUSION IMAGINGRoutine 12/22/2024 9:26 AM EDTfrom Last 3 Months Results * CORONARY ANGIOGRAPHY, RIGHT HEART CATH (01/08/2025 9:05 AM EDT)Anatomical RegionLateralityModalityOtherSpecimen (Source)Anatomical Location / Laterality Collection Method / VolumeCollection TimeReceived Time Narrative 01/08/2025 9:18 AM EDT Cardiovascular Laboratory Report FINAL IMPRESSIONS: ?? Angiographically nonobstructive coronary arteries Mildly elevated right-sided heart pressures and moderately elevated pulmonary capillary wedge pressure consistent with biventricular congestive heart failure Normal transpulmonary gradient along with elevated wedge consistent with postcapillary pulmonary venous hypertension Normal cardiac output/cardiac index RECOMMENDATIONS: ?? Aggressive cardiovascular risk factor modification Optimal medical therapy for heart failure with preserved ejection fraction should include an SGLT2 inhibitor plus or minus spironolactone Given elevated filling pressures, and patient's symptoms, will start Lasix 40 mg a day and check a basic metabolic panel a week later She is to follow-up with Dr. Ambrose Espino her primary fish peddler in the next 1 to 2 months PROCEDURES: ??Ultrasound-guided access to the right internal jugular vein, right heart catheterization, ultrasound-guided access to the left radial artery, bilateral selective coronary angiography METHODS: After risks, benefits, and alternatives were explained, written informed consent was obtained. ??The patient was prepped and draped in usual sterile fashion over the right neck and left radial regions. Using 1% lidocaine solution, local infiltration anesthesia was achieved. ?? Using a modified Seldinger technique, a micropuncture kit, and under ultrasound guidance, access to the right internal jugular vein was obtained. ??A 6 [place] 11 cm sheath was inserted without difficulty. Right heart catheterization was performed using a Barbosa catheter via the venous sheath. ??Pressures were measured in the right atrium, right ventricle, pulmonary artery, and pulmonary capillary wedge positions. ?? Oxygen saturations were obtained and cardiac output/cardiac index was calculated using the modified Monika principle. ??The Barbosa catheter was removed. The jugular sheath was removed with application of manual pressure to achieve optimal hemostasis. Local infiltration anesthesia was achieved of the left wrist. ??Using a micropuncture kit, and under ultrasound-guided access of the left radial artery was obtained. ??A 6 [place] Citizen glide sheath was inserted without difficulty. Bilateral selective coronary angiography was performed using JL4 and JR4 catheters. ?? After reviewing the images, it was elected to conclude the procedure. ??All catheters were removed. The radial sheath was removed with application of a TR band per protocol to achieve optimal hemostasis. ??Overall the patient tolerated the procedure well. ??There were no overt complications. ??He was to be transferred to the holding area in stable condition. FINDINGS: ?? Hemodynamics: RA 11 RV ??43/9, 15 PA ??43/27 [34] PCWP ??22 TPG ??12 AO ??143/97 [120] Cardiac output /cardiac index 7.65/3.35 AO sat /PA sat 95%/74% LEFT VENTRICULOGRAPHY: This was not performed; ejection fraction is 55% by echocardiography. CORONARY ARTERIES: ?? Left main coronary artery: This arises from the left coronary cusp and bifurcates into the left anterior descending and left circumflex coronary arteries. ??It is free of significant stenosis. Left anterior descending coronary artery: This is angiographically nonobstructive. Left circumflex coronary artery: This is angiographically nonobstructive. Right coronary artery: This arises from the right coronary cusp and is a dominant vessel giving rise to the posterior descending and posterolateral branches. ??It is angiographically nonobstructive. INDICATIONS: Exertional shortness of breath, chest pain, abnormal stress test ?? Coronary Findings Diagnostic Dominance: Right No diagnostic findings have been documented. Intervention No interventions have been documented. Authorizing ProviderResult TypeResult StatusGeorge Kenzie [facility] [place] CARDIAC CATH PROCEDURESFinal Result * (ABNORMAL) POC Hb02% (01/08/2025 8:39 AM EDT)ComponentValueRef RangeTest MethodAnalysis TimePerformed AtPathologist XgbtesvhvJQQOCA56%74.2(A)90 - 95 % QC Pass/FailPassedQC LOT #[id number] Expiration Date73,126SAMPLESITEnlSpecimen (Source)Anatomical Location / LateralityCollection Method / VolumeCollection TimeReceived TimeBloodVenous blood specimen / Dobwrbx2701/08/2025 8:39 AM EDT Narrative Chance Jenkins MT - 01/09/2025 5:53 AM EDT Oper 5175 Authorizing ProviderResult TypeResult StatusEhab Eltaon [facility] MDPOINT OF CARE TEST ENTER/EDIT ORDERABLESFinal Result * Electrocardiogram, 12-lead (01/08/2025 8:13 AM EDT)ComponentValueRef RangeTest MethodAnalysis TimePerformed AtPathologist SignatureVentricular Iagm72FLCOH MUSEAtrial Wlor82INTFH MUSEPR Selttqey384zsBB MUSEQRS RGWTYXPD94dzKH MUSEQT Hadvcyly375zoOA MUSEQTC CALCULATION(BAZETT)445msGE MUSEP Qhsz15ynzfmcbGO MUSE R-Mkeh77qaqsuycPZ MUSET Wave Cumw47fppcrtoXT MUSESpecimen (Source)Anatomical Location / LateralityCollection Method / VolumeCollection TimeReceived Time 01/08/2025 7:49 AM EDT01/08/2025 10:03 AM EDT Impressions GE MUSE - 01/08/2025 10:03 AM EDT Normal sinus rhythm Normal ECG No previous ECGs available Confirmed by Dario CASTELLANOS SAMER J. ([id number]) on 01/08/2025 10:03:48 AM Narrative Procedure Note Jeannine Castellanos MD - 01/08/2025 IMPRESSION: Normal sinus rhythm Normal ECG No previous ECGs available Confirmed by Dario CASTELLANOS SAMER J. ([id number]) on 01/08/2025 10:03:48 AM Authorizing ProviderResult TypeResult StatusEhab Harvinder VALERO ORDERABLESFinal ResultPerforming OrganizationAddressCity/State/ZIP CodePhone Number GE MUSE * Complete Echo (TTE) w/wo Imaging Agent, Strain, 3D, Bubble Study (12/29/2024 8:06 AM EDT)Anatomical RegionLateralityModalityUltrasound Narrative Authorizing ProviderResult TypeResult StatusHistorical Provider [facility] [place] ECHO PROCEDURESFinal Result * Lexiscan Stress Myocardial Perfusion Imaging (12/22/2024 9:26 AM EDT) Anatomical RegionLateralityModalityOther Narrative Authorizing ProviderResult TypeResult StatusHistorical Provider [facility] [place] STRESS PROCEDURESFinal Result from Last 3 Months Insurance * Guarantor: Laura Singh LAccganesh TypeRelation to PatientDate of BirthPhone Billing AddressPersonal/CqwpicRqqk24/23/1966 [facility] [place] [address] Care Teams Team MemberRelationshipSpecialtyStart DateEnd Date Joe Barksdale DO [address] [address] PCP - GeneralFamily Medicine08/22/24
--- OUTSIDE RECORDS SUMMARY | 2025-03-17 11:36 | XMS_ITS | Clinical Summary ---
Author Organization [facility] Address [address] [place] [id number] Care Team Providers Care Hygiene Teacher Name Role Phone Joe Barksdale Lilli BETH Primary Care Provider [phone] Allergies Active AllergyReactionsCriticalityNoted DateCommentsClarithromycinItching 05/16/2007 nerve difficulty Cefuroxime BjdodwNrlsxyt74/27/2007 nerve difficulty PcolivvukutSozjiyu25/27/8332WrqvetuyulrkBllfvjs30/27/2007 nerve difficulty LorazepamOther: See Bzzuqxfy53/27/2022MetforminOther: See Yyxzmsyq01/27/2022 FevbnpulbfaqBlvzcaq21/27/2007 nerve difficulty Medications MedicationSigDispense QuantityRefillsLast FilledStart DateEnd DateStatus cetirizine hcl(ZYRTEC 10 MG TAB) Indications:Myalgia and myositis, unspecifiedTake one(1) tablet daily.0 05/16/2007ctive fluticasone/salmeterol(ADVAIR DISKUS 250 MCG-50 MCG/DOSE FOR INHALATION) Indications:Myalgia and myositis, unspecifiedTake one(1) inhalation twice daily; rinse and gargle mouth with water after each use.ctive esomeprazole mag trihydrate(NEXIUM 40 MG CAP) Take one(1) capsule daily.ctive mometasone furoate(NASONEX 50 MCG/ACTUATION SPRAY) [employer] twice in each nostril once daily.ctive montelukast (SINGULAIR) 10 mg tablet Take 10 mg by mouth daily at bedtime.Active MULTIVIT-MINERALS/FERROUS GLUC (CENTRAM-CARE ORAL) Take by mouth twice daily.Active cyclobenzaprine (FLEXERIL) 10 mg tablet Active Cholecalciferol, Vitamin D3, 125 mcg (5,000 unit) cap Active metFORMIN ER (GLUCOPHAGE XR) 500 mg 24 hr tablet Take 2 tablets by mouth twice daily. 360 tablet ctive venlafaxine ER (EFFEXOR XR) 37.5 mg 24 hr capsule take one a day, if tolerated after two weeks increase to two 60 capsule ctive levothyroxine (SYNTHROID) 200 mcg tablet Take one tablet daily. 90 tablet ctive Active Problems ProblemNoted DateDiagnosed DateType 2 diabetes mellitus with hyperglycemia, without long-term current use of pbohkos8310/11/2021ensorineural hearing loss, meaudtryl77/29/2019CFS (chronic fatigue syndrome)09/20/2015Fibromyalgia 09/20/2015BMI 50.0-59.9, adult09/20/2015Binge eating yplubigd21/02/2016 Yulisa's onqocls1309/20/2015Metabolic bldhymxe82/02/2016 Family History Medical HistoryRelationCommentsHypertensionBrotherMIBrotherDiabetesFather Ischemic Heart DiseaseFatherKidney failureFatherStrokeFatherPulmonary embolism Motherpituitary tumorMotherRelationStatusCommentsBrotherAliveFatherDeceased MotherDeceased Social History Tobacco UseTypesPacks/DayYears UsedDateSmoking Tobacco: NeverSmokeless Tobacco: NeverAlcohol UseStandard Drinks/WeekCommentsNot Currently0 (1 standard drink = 0.6 oz pure alcohol)rarelyPHQ-2AnswerDate RecordedPHQ-2 oombx071rea Deprivation IndexAnswerDate RecordedNational Score (1-100), lower number is lower lwzy645206/07/2022State Score (1-10), lower number is lower riskNot on file 3Data from: https://www.neighborhoodatlas.medicine.[facility].edu/. Last address used for irrtmrpsgyl[address]06/07/[birth year]22CommentsNoSex and Gender InformationValueDate RecordedSex Assigned at HmakaAqayfb86/25/2022 10:20 PM ESTLegal TsaSxwetc33/02/2012 8:11 AM ESTGender IxhebkozMkjwkf43/25/2022 10:20 PM ESTSexual OrientationNot on file Last Filed Vital Signs Vital SignReadingTime TakenCommentsBlood Bfibdvcu761/9310/07/2021 1:46 PM EDT Ipylu754210/07/2021 1:46 PM CYFBgfgiajynsl79.1 ??C (98.7 ??F)06/26/2008 12:30 PM ESTRespiratory Rate--Oxygen Saturation--Inhaled Oxygen Concentration--Weight 125.8 kg (277 lb 6.4 oz)10/07/2021 1:46 PM SGTNhktqg675.1 cm (5' 5 )03/30/2016 3:51 PM ESTBody Mass Index46.16105/30/2015 3:51 PM EST Plan of Treatment Health MaintenanceDue DateLast DoneCommentsAnxiety Vrpvbdwui21/23/1986Depression Uafivocgi70/23/1986HIV Klwcpolwx07/23/1986Hepatitis B Vaccine (1 of 3 - 19+ 3- dose series)09/10/1986Cervical Cancer Rbihaeibw94/23/1989Mammogram Screening 2007CT Idgrisglxxtl96/23/2013Cologuard (FIT-DNA)09/10/2012Colonoscopy 09/10/2012Colorectal Cancer Dhoikysar91/23/2013Fecal Occult Blood09/10/2012Lipid Sqrxuyfke29/23/5145Wzezuwppknszz09/23/2013Pneumococcal Vaccine: 50+ (1 of 1 - PCV)09/10/2017Shingrix Vaccine (1 of 2)09/10/2017DTaP,Tdap,Td Vaccine (2 - Td or Tdap)/Diabetes Cgledphtt79/, 10/07/2021, 06/16/2021, Additional history existsCovid-19 Vaccine (3 - 2024- season) /10/2020, 09/02/2020Influenza Vaccine (#1) Hepatitis C LoioljrvxYsvoaafni68/27/2007 Procedures Procedure NamePriorityDate/TimeAssociated DiagnosisCommentsCOMPREHENSIVE METABOLIC NBTWMQgzazhd07/20/2022 2:42 PM EDT Controlled type 2 diabetes mellitus without complication, without long-term current use of insulin (HCC) HEP REMOTE PANEL YICwvqaia93/27/2007 2:25 PM EST Myalgia And Myositis Nos from Last 3 Months or Most Recently Relevant to Health Maintenance Results * (ABNORMAL) COMP METABOLIC PANEL (10/07/2021 2:42 PM EDT)ComponentValueRef RangeTest MethodAnalysis TimePerformed AtPathologist SignatureProtein, Total 7.36.3 - 8.0 g/dL10/07/2021 8:04 PM [facility] LABAlbumin 4.83.9 - 4.9 g/dL10/07/2021 8:04 PM [facility] Calcium, Total10.3(H)8.5 - 10.2 mg/dL10/07/2021 8:04 PM [facility] LABBilirubin, Total0.50.2 - 1.3 mg/dL10/07/2021 8:04 PM EDT [facility] LABAlkaline Mnxgumljdfx5502 - 123 U/L10/07/2021 8:04 PM [facility] FYRBPX5009 - 35 U/L10/07/2021 8:04 PM [facility] VGMEFF715 - 38 U/L10/07/2021 8:04 PM EDT [facility] FSHPqrvqdr577(H)74 - 99 mg/dL10/07/2021 8:04 PM [facility] LABComment: The [place] Diabetes Association (ADA) provides guidance for cutoff values for fasting glucose andrandom glucose. The ADA defines fasting as no [...] Standards of Medical Care in Diabetes 2016, [place] [employer]. Diabetes Care. 2016.39(Suppl 1). UML928 - 21 mg/dL10/07/2021 8:04 PM [facility] Creatinine0.700.58 - 0.96 mg/dL10/07/2021 8:04 PM [facility] CBCBkyiqd890655 - 144 mmol/L10/07/2021 8:04 PM [facility] LABPotassium4.13.7 - 5.1 mmol/L10/07/2021 8:04 PM [facility] SNNNhionpne09843 - 105 mmol/L10/07/2021 8:04 PM [facility] TQVLT35754 - 30 mmol/L10/07/2021 8:04 PM [facility] LABAnion Tbd160 - 18 mmol/L10/07/2021 8:04 PM [facility] LABEstimated Glomerular Filtration Ardy428>=60 mL/min/1.73m 10/07/2021 8:04 PM [facility] LABComment:Estimated Glomerular Filtration Rate (eGFR) is calculated using the 2020 CKD-EPI creatinine equation. This equation utilizes serum creatinine, sex, and age as parameters. The creatinine assay has traceable calibration to isotope dilution- mass spectrometry. Refer to KDIGO guidelines for clinical interpretation. In patients with unstable renal function, e.g. those with acute kidney injury, the eGFRmay not accurately reflect actual GFR.Specimen (Source)Anatomical Location / LateralityCollection Method / VolumeCollection TimeReceived TimeBloodBLOOD SPECIMEN / UnknownVenipuncture / Ifghpvq7110/07/2021 2:42 PM EDT10/07/2021 2:42 PM EDT Narrative Authorizing ProviderResult TypeResult StatusNeto Ansari MDLABORATORYFinal ResultPerforming OrganizationAddressCity/State/ZIP CodePhone Number [facility] [address] [address], * HEP REMOTE PANEL BL (05/16/2007 2:25 PM EST)ComponentValueRef RangeTest Method Analysis TimePerformed AtPathologist SignatureHep B Core Ab, TotalNegative NEGATCLEVEL[facility]INIC [facility]IN LABORATORYHep C Antibody IANegativeNEGATCLEVELAND CLINIC MAIN LABORATORYHBsAgNegativeNEGATCLEVELAND [facility] LABORATORYHep B Surface Ab, QualNegativeNEGATCLEVELAND CLINIC MAIN LABORATORYComment: ? A negative Hepatitis B Surface Antibody is indicative of: 1)no prior exposure to HBV, 2)lack of antibody response to an acute or chronic HBV infection, 3)lack of antibody response to HBV vaccination, or, 4)loss of immunity that followed either vaccination or infection. Specimen (Source)Anatomical Location / LateralityCollection Method / Volume Collection TimeReceived TimeBlood specimen (specimen)BLOOD SPECIMEN / Unknown 05/16/2007 2:25 PM EST Narrative Authorizing ProviderResult TypeResult StatusCarmen Shar Seymour MDLABORATORYFinal ResultPerforming OrganizationAddressCity/State/ZIP CodePhone Number [facility] [address] [place] [address] from Last 3 Months or Most Recently Relevant to Health Maintenance Insurance Care Teams Team MemberRelationshipSpecialtyStart DateEnd Date Joe Barksdale DO [address] [place] [id number] [facility]08/01/18
--- OUTSIDE RECORDS SUMMARY | 2025-03-17 11:44 | XMS_ITS | CCD ---
Author Organization [facility] Care Team Providers Care Process Control Specialist Name Role Phone JEFF JON Primary Care Unavailable ELLE DODD Referring Unavailable Jeff Jon DO Primary Care Provider Carlos Terrazas Unavailable [phone] Jeff Jon Unavailable Vandana Jordan Unavailable Carl Valdivia Unavailable Lorena Rico Unavailable Jeff Jon DO Primary Care Provider [phone] JEFF JON Primary Care Unavailable LEENA SEYMOUR [...] Admitting Unavailable DIAB ., MARCELL Admitting Unavailable TROTTI, GIROLAMO Consulting Unavailable GIRCASSI, DR AGUILAR Primary Care Unavailable DIAB ., MARCELL Attending Unavailable ANASTASIA WADE Consulting Unavailable DIAB ., MARCELL Consulting Unavailable DONTRELL, DR AGUILAR Primary Care Unavailable JEROD ., LAURENCE Attending Unavailable JEROD ., LAURENCE Admitting Unavailable WEST, DR JEFF Colvin Consulting Unavailable JEROD ., LAURENCE Consulting Unavailable DONTRELL, DR AGUILAR Primary Care Unavailable TIMMIS, JENNIE Consulting Unavailable TIMMIS, JENNIE Attending Unavailable TIMMIS, JENNIE Admitting Unavailable LAYTON, STEPHENIE Consulting Unavailable NEFCY, DURGA Consulting Unavailable GIRCASSI, DR AGUILAR Primary Care [...] ble Prieto, Dr. Ren Attending Unavaila ble Dontrell, Dr. Jeff Coleman Primary Care Unavaila ble Gircassi, Dr. Jeff Colmean Attending Unavaila ble Dontrell, Dr. Jeff Coleman Referring Unavaila ble Dontrell, Dr. Jeff Coleman Attending Unavaila Jeff Lopez Primary Care Physician DO Casper Nguyen Admitting Unavailabl e Casper Nguyen Attending Unavailable Sharon Wong D Referring Unavailable TIMMIS, JENNIE H Attending Unavailable JEFF JON Referring Unavailable TIMMIS, JENNIE H Attending Unavailable TRACY, SHARON D Referring Unavailable HILLS, SHARON D Attending Unavailable SVETLANA SINGH Attending Unavailable TIMMIS, JENNIE H Attending Unavailable HILLS, SHARON D Referring Unavailable HILLS, SHARON D Attending Unavailable TIMMIS, JENNIE H Attending Unavailable DO Jeff Jon Primary Care Provider [phone] MD Logan Brown Attending Provider Jeff Jon DO Primary Care Unavailab 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, Cass Zavaleta Attending Unav ailable Jeff Jon DO Primary Care Unavailab 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, Cass Zavaleta Attending Unav ailable Dontrell BETH, Jeff Coleman Primary Care Unavailab 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, Cass Zavaleta Attending Unav ailable Jeff Jon DO Primary Care Unavailab Librado Lugo MD Attending Unavaila ble Jeff Jon DO Primary Care Provider Ly DO, Carol Rogers Attending Provider [phone] Jeff Jon DO Primary Care Provider Jeff Jon DO Attending Provider [phone] Lorena Rico APRN Attending Provider Jeff Jon Admitting Unavailable Jeff Jon Attending Unavailable Stephanie, Logan S Admitting Unavailable Stephanie, Logan S Attending Unavailable Jeff Jon Primary Care Unavailable Ly, Carol Rogers Admitting Unavailable Ly, Carol Rogers Attending Unavailable Jeff Jon Primary Care Unavailable Ly, Carol L Admitting Unavailable Ly, Carol Rogers Attending Unavailable Jeff Jon Primary Care Unavailable Jeff Jon DO Primary Care Provider [phone] Jeff Jon DO Attending Provider Lorena Rico APRN Attending Provider ELTAHAWOral, EHAB Admitting Unavailable ABNER, MARCIOAB Attending Unavailable NEO ESPINO Attending Unavailable MARIA INESUKANEO DESAI Attending Unavailable NEO ESPINO Attending Unavailable ELTAIVAN, EHAB Referring Unavailable Jeff Jon DO Primary Care Provider Jeff Jon DO Attending Provider [phone] Neo Espino MD, V Attending Provider Jeff Jon DO Primary Care Provider [phone] Jeff Jon DO Attending Provider Allergies Allergy ClassificationReported Allergen(s)Allergy TypeDate of OnsetReaction(s) FacilityMacrolides (antibiotic) (1 source)ClarithromycinDrug Nmrdsny92-85-6277utmgspqkKvbgkjkcb Regional Medical CenterQuinolones (antibiotic) (2 sources)levoFLOXacinDrug Kwmplbt14-00-2098Jarksimht Pain, itches/pain, Abdominal PainK[facility] (6 sources)Cefuroxime; Translations: [CEFUROXIME AXETIL]Drug Gfvjmxz04-41-2468 [facility] (20 sources)Clarithromycin; Translations: [CLARITHROMYCIN]Drug Zjptiff71-05-4802 [facility] (15 sources)Fluconazole; Translations: [FLUCONAZOLE]Drug Ncuocel00-83-1972 [facility] (20 sources)gatifloxacin; Translations: [GATIFLOXACIN]Drug Xcaaiqa81-07-9415 [facility] (20 sources)levoFLOXacin; Translations: [LEVOFLOXACIN]Drug Opwmjir34-79-1217 [facility] (17 sources)LORazepam; Translations: [LORAZEPAM]Drug Mqtqddr37-11-6062Ivqib: See [facility] (20 sources)metFORMIN; Translations: [METFORMIN]Drug Bgdazoe79-70-9725Civwr: See [facility] (20 sources)FluconazoleDrug AllergyitchBapt[facility] [employer] Other (20 sources)gatifloxacin; Translations: [Tequin]Drug Dloqmmu66-21-2188[facility]qswpM[facility] (20 sources)levoFLOXacin; Translations: [Levaquin]Drug Kggvide13-05-4224 itches/painBl[facility] Rep[facility] (20 sources)LORazepamDrug Allergymade wired /unable to [facility] CenterSkylabs DietBetter Other (3 sources)metFORMINDrug AllergyheadSturgis HospitalSkylabs DietBetter Other (2 sources)Clarithromycin; Translations: [Biaxin]Drug Ccyrjol46-52-8307Gvq [facility] Repository (1 source)PentamidineDrug AllergyBlanchard Valley Health System Repository (2 sources)Percocet Tablets; Translations: [Percocet Tablets]Propensity to adverse reactions to drugnausea and vomitingGood [facility]aritan [facility] (2 sources)Vicodin Tablets; Translations: [Vicodin Tablets]Propensity to adverse reactions to drugnausea and [facility] (1 source)ClarithromycinDrug Rjevsus71-91-7841RorgtibyaKettering Health [facility] Rep[facility] (1 source)gatifloxacinDrug Rvwmhrz69-40-7856FrttkamubKettering Health [facility] Rep[facility] (1 source)levoFLOXacinDrug Rmgahnp74-66-0602OcibwshfyKettering Health [facility] Repository (1 source)Cefuroxime; Translations: [CEFUROXIME]Drug Tdamkvb73-01-6931NgiosgbtjpMercy Hospital Repository Medications Current Medications MedicationDrug Class(es)DatesSig (Normalized)Sig (Original)Advair Diskus 250-50 MCG/DOSE (20 sources)take 1 puff(s) by inhalation every twelve hoursAdvair Diskus 250-50 MCG/DOSE 1 puff Inhalation every 12 hrs for 90 day(s) Activetake 1 puff(s) by inhalation every twelve hoursAdvair Diskus 250-50 MCG/DOSE 1 puff Inhalation every 12 hrs Activetake 1 puff(s) by inhalation every twelve hoursAdvair Diskus 250-50 MCG/DOSE 1 puff Inhalation every 12 hrs for 90 days Ohmgincvg582189 200 actuat albuterol 0.09 mg/actuat metered dose inhaler (20 sources)beta2-Adrenergic AgonistStart: 03-26-2024 End: 12-55-5240Dxbwmupbz Sulfate 90 mcg/actuation HFA aerosol inhaler Active 2 INH INHALATION Every 6 hours as needed for shortness of breath or wheezing 8.5 March 26, 2024 1:03pm Complies with drug therapyStart: 82-73-4664yknr 3 mL by inhalation every six hours as neededAlbuterol Sulfate 2.5 mg /3 mL (0.083 %) solution for nebulization Active 2.5 MG INHALATION Every 6hours as needed for shortness of breath or wheezing August 28, 2023 12:00am 3 ml as needed Inhalatio n every 6 hrs; Note: Source Status: Continueprn; Provider: Jacky Carrillo Complies with drug therapyStart: 08-28-2023 End: 13-02-8981Avenvmxos Sulfate (Proair Hfa) 90 mcg/actuation HFA aerosol inhaler Discontinued INHALATION August 28, 2023 12:00am March 26, 2024 1:03pm FreeTextSi inhalations Inhalation q4 hrs prn; Note: Source Status: Continueprn; Provider: Dontrell Aguilar CStart: 05-00-2666Hqahmrfvv Sulfate (Proair Hfa) 90 mcg/actuation HFA aerosol inhaler Active INHALATION August 28, 2023 12:00am FreeTextSi inhalations Inhalation q4 hrs prn; Note: Source Status: Continueprn; Provider: Dontrell Aguilar CStart: 56-87-8576Wezykflrn Sulfate (2.5 MG/3ML) 0.083% 3 ml as needed Inhalation every 6 hrs prn Nov, Active Start: 73-64-7299Nwovzkqet Sulfate (2.5 MG/3ML) 0.083% 3 ml as needed Inhalation every 6 hrs prn Nov, ActiveStart: 23-46-7032obkf 2 puff(s) by inhalation every four hours as neededAlbuterol Sulfate HFA 108 (90 Base) MCG/ACT 2 puffs as needed Inhalation every 4 hrs for 30 day(s) Aug, Active Start: 18-28-0167VdkPsd HFA 108 (90 Base) MCG/ACT 2 inhalations Inhalation q4 hrs prn prn Oct, Activeamitriptyline hydrochloride 25 mg oral tablet (1 source)Tricyclic AntidepressantStart: 05-10-2023 End: 24-03-7073fdyp 1 tablet by mouth once daily at bedtimeamitriptyline 25 mg Tab 25 mg = 1 tab(s), Oral, Once a day (at bedtime), X 30 day(s), # 30 tab(s), R efills(s) 2, Pharmacy: [facility]/pharmacy #[id number], 166, cm, 05/10/23 14:36:00 EST, Height/Length Dosing, 123.7, kg, 05/10/23 14:36:00 EST, Weight Dosing Start Date: 05/10/23 Stop Date: 08/08/23 Status: OrderedamLODIPine 5 mg oral tablet (1 source)Dihydropyridine Calcium Channel BlockerStart: 27-22-1196lyky 1 tablet by mouth every twenty-four hoursamLODIPine Besylate 5 MG 1 tablet Orally Once a day for 30 days Jun, Activeatorvastatin 40 mg oral tablet (11 sources)HMG-CoA Reductase InhibitorStart: 07-09-0540xldk 1 tablet by mouth once dailyAtorvastatin 40 mg tablet Active 40 MG PO Daily February 24, 2025 12:00am Complies with drug therapyStart: 09-01-2024 End: 21-81-9928dsvq 1 tablet by mouth once dailyAtorvastatin 20 mg tablet Discontinued 20 MG PO Daily September 01, 2024 12:00am November 27, 2024 11:42am betamethasone 0.5 mg/ml / clotrimazole 10 mg/ml topical cream (20 sources)Azole Antifungal, CorticosteroidStart: 08-28-2023 End: 83-92-6006Xicisxcuanne-Betamethasone 1-0.05 % cream Active 1 APPLIC TOPICAL Twice daily as needed for as directed July 16, 2024 11:35am FreeTextSi application Externally Twice a day; Note: Source Status: Takingprn; Refills: 3; Qty: 135 gm; Provider: Dontrell Reeder Complies with drug therapyStart: 12-71-7108Rlxqxjzhwmjw-Betamethasone 1-0.05 % 1 application Externally Twice a day for 90 days prn Mar, ActiveCentrum (1 source)Start: 94-71-7551Zwscmuz Oral, Daily, Refill(s) 0 Start Date: 02/22/11 Status: Orderedcholecalciferol 0.05 mg oral tablet (20 sources)Vitamin DStart: 08-28-2023 End: 60-76-4442eurk 1 tablet by mouth once dailyCholecalciferol (Vitamin D3) 50 mcg (2,000 unit) tablet Active 2000 UNIT PO Daily August 28, 2023 10:48am FreeTextSi tablet Orally Once a day; Note: Source Status: Taking; Provider: Dontrell Reeder Complies with drug therapyStart: 33-84-2022gzww 1 tablet by mouth every twenty-four hoursVitamin D3 50 MCG (2000 UT) 1 tablet Orally Once a day Feb, ActiveStart: 68-23-5058Ghxvgmn D3 125 MCG (5000 UT) as directed Orally once weekly Mar, ActiveStart: 33-92-3666asri 25 ug by mouth once dailyVitamin D 25 MCG (1000 UT) 5000 units Orally Once a day Dec, Active Start: 77-74-9071bzgwaosxuzzjc 10 mg oral tablet (2 sources)Sodium-Glucose Cotransporter 2 InhibitorStart: 15-82-5952djxl 1 tablet by mouth once dailyDapagliflozin Propanediol (Farxiga) 10 mg tablet Active 10 MG PO Daily February 24, 2025 12:00am Complies with drug bxqusbr88 hr dilTIAZem hydrochloride 240 mg extended release oral capsule (19 sources)Calcium Channel BlockerStart: 87-47-6914ktxn 1 mg by mouth every twenty-four hoursDiltiazem Hcl (Cartia Xt) 240 mg capsule,extended release 24hr Active MG PO February 24, 2025 12:00am Complies with drug therapyStart: 09-08-2024 End: 13-06-3484tgtj 1 capsule by mouth once dailyDiltiazem Hcl 240 mg capsule,extended release 24hr Discontinued 240 MG PO Daily September 08, 2024 10: 07am November 27, 2024 11:43amStart: 09-01-2024 End: 72-54-9965bjrs 1 capsule by mouth every twenty-four hoursDiltiazem Hcl 240 mg capsule,extended release 24hr Discontinued MG PO September 01, 2024 12:00am September 08, 2024 10:07amStart: 09-01-2024 End: 46-62-4208qrkl 1 capsule by mouth every twenty-four hoursDiltiazem Hcl 240 mg capsule,extended release 24hr Discontinued MG PO September 01, 2024 12:00am September 08, 2024 10:07amdoxycycline hyclate 100 mg oral capsule (4 sources)Tetracycline-class Drugtake 1 capsule by mouth every twelve hours Doxycycline Hyclate 100 MG 1 capsule Orally every 12 hrs for 10 day(s) Active estrogens, conjugated (skilled nursing) 0.45 mg oral tablet (1 source)EstrogenStart: 13-63-6721sqmz 1 tablet by mouth once dailyPremarin 0.45 mg Tab 0.45 mg = 1 tab(s), Oral, Daily, tab(s), Refills(s) 0 Start Date: 02/22/11 Status: Orderedfluticasone propionate 0.05 mg/actuat metered dose nasal spray (20 sources)CorticosteroidStart: 47-62-4170ufqh 1 spray(s) nasal route once dailyFluticasone Propionate 50 MCG/ACT 1 spray in each nostril Nasally Once a day Apr, ActiveStart: 90-35-3008njlj 1 spray(s) nasal route once daily Fluticasone Propionate 50 MCG/ACT 1 spray in each nostril Nasally Once a day Apr, ActiveStart: 47-40-5928Idgmygtkzmf Propion-Salmeterol (20 sources)Corticosteroid, beta2-Adrenergic AgonistStart: 38-96-8913Vwwxtlaraaw Propion-Salmeterol (Advair Diskus) 250-50 mcg/dose blister with device Active 1 INH INHALATION Q12H 3 December 18, 2024 8:30am Complies with drug therapy Start: 10-29-2023 End: 69-81-6347Fjnwdnyqpih Propion-Salmeterol (Advair Diskus) 250-50 mcg/dose blister with device Discontinued 1 INH INHALATION Q12H 3 October 29, 2023 1:18pm December 18, 2024 8:30amStart: 61-31-8265Kzsjfctvmxd Propion-Salmeterol (Advair Diskus) 250-50 mcg/dose blister with device Active 1 INH INHALATION Q12H 3 October 29, 2023 1:18pm Complies with drug therapyStart: 46-06-3475Eydso: 60-94-9532Xtfycjspchk Propion-Salmeterol (Advair Diskus) 250-50 mcg/dose blister with device Active 1 INH INHALATION Q12H 3 October 29, 2023 12:18pmStart: 84-40-6993Mqkiwmncdiv Propion-Salmeterol (Advair Diskus) 250-50 mcg/dose blister with device Active 1 INH INHALATION Q12H 3 October 29, 2023 1:18pmStart: 09-14-2017 End: 05-72-3658Ugbldhxdcda Propion-Salmeterol (Advair Diskus) 250-50 mcg/dose Blister With Device Discontinued 1 INH INHALATION Q12H September 13, 2017 11:00pm October 29, 2023 12:20pmStart: 09-14-2017 End: 86-53-1006Rnomaqibuix Propion-Salmeterol (Advair Diskus) 250-50 mcg/dose Blister With Device Discontinued 1 INH INHALATION Q12H September 14, 2017 12:00am October 29, 2023 1:20pmStart: 51-48-6613Ijlzpxgztki Propion-Salmeterol (Advair Diskus) 250-50 mcg/dose Blister With Device Active 1 INH INHALATION Q12H September 14, 2017 12:00amStart: 12-50-7660xkjb 1 puff(s) by inhalation twice daily Advair 250 mcg-50 mcg Powder 1 puff(s), Inhalation, BID, EA, Refill(s) 0 Start Date: 02/22/11 Status: OrderedStart: 57-18-1445nvxnnlvpypj/salmeterol(ADVAIR DISKUS 250 MCG-50 MCG/DOSE FOR INHALATION) Indications: Myalgia and myositis, unspecified Take one(1) inhalation twice daily; rinse and gargle mouth with water after each use. 0 05/16/2007 Activetake 1 puff(s) by inhalation every twelve hoursAdvair Diskus 250-50 MCG/ACT 1 puff Inhalation every 12 hrs Active Comment on above:Take one(1) inhalation twice daily; rinse and gargle mouth with water after each use.furosemide 40 mg oral tablet (2 sources)Loop DiureticStart: 08-90-9527imsa 1 tablet by mouth once daily Furosemide 40 mg tablet Active 40 MG PO Daily February 24, 2025 12:00am Complies with drug therapylevothyroxine sodium 0.175 mg oral tablet (20 sources)l-ThyroxineStart: 15-37-5450wefy 1 tablet by mouth once daily in the morningLevothyroxine 175 mcg tablet Active 175 MCG PO Daily March 02, 2025 12:00am take first thingin the morning on an empty stomach, do not eat or drink for 45 minutes after taking Complies with drug therapyStart: 11-27-2024 End: 26-31-1169sidt 1 tablet by mouth once daily in the morningLevothyroxine 200 mcg tablet Discontinued 200 MCG PO Daily November 27, 2024 12:00am March 02, 2025 12:14pm take first thing in the morning on an empty stomach, do not eat or drink for 45 minafter takingStart: 08-18-2024 End: 93-46-2395flti 2 tablets by mouth once daily in the morningLevothyroxine 100 mcg tablet Discontinued 200 MCG PO Daily August 18, 2024 12:00am November 27, 2024 12:21pm take first thing in the morning on an empty stomach, do not eat or drink for 30-45 min after takingStart: 08-18-2024 End: 01-25-6852Orrojduepbsps (Synthroid) 25 mcg tablet Discontinued 25 MCG PO Daily August 18, 2024 12:00am September 08, 2024 10:58am take first thing in the morning on an empty stomach, do not eat or drink anything for 30-45 min after taking. Take in addition to 200 MCG (2- 100 MCG tablets) daily for a total of 225 MCG dailyStart: 08-28-2023 End: 64-83-0980qeht 1 tablet by mouth once daily in the morningLevothyroxine (Synthroid) 200 mcg tablet Discontinued 200 MCG PO Daily August 28, 2023 11:47am September 03, 2023 12:49pm take on an empty stomach first thing in the morning do not eat or drink for 30-45 min after takingStart: 52-69-7714Dwzhqvuwa 200 mcg (0.2 mg) Tab Refills(s) 0 Start Date: 05/10/23 Status: OrderedStart: 03-62-0674ysweqvdfyduqb (SYNTHROID) 200 mcg tablet Take one tablet daily. 90 tablet 1 10/13/2021 ActiveStart: 07-22-2021 End: 73-04-2831xoxq 2 tablets by mouth once dailylevothyroxine (SYNTHROID) 112 mcg tablet Take 2 tablets by mouth once daily. 180 tablet 3 07/22/2021 10/13/2021 Discontinued (Course of therapy completed)Start: 56-11-0650pofu 1 tablet by mouth in the morningSynthroid 175 MCG 1 tablet in the morning on an empty stomach Orally alternating with 200 MCG for 90 days PT REQUESTING MYLAN BRAND Oct, ActiveStart: 09-14-2017 End: 63-10-2982kkyd 1 tablet by mouth once dailyLevothyroxine (Synthroid) 175 mcg Tablet Discontinued 175 MCG PO Daily September 14, 2017 12:00am August 28, 2023 11:40amtake 1 tablet by mouth in the morningLevothyroxine Sodium 200 MCG 1 tablet on an empty stomach in the morning Orally PT REQUESTING MYLAN BRAND ActiveComment on above:Take 2 tablets by mouth once daily.Take one tablet daily. mometasone furoate 0.05 mg/actuat metered dose nasal spray (20 sources)CorticosteroidStart: 07-89-0034Ugtsz: 08-57-2555Wwytws 0.1 % 1 application Externally Once a day for 90 days prn Mar, ActiveStart: 80-35-2748Xalykyuqff (Elocon) 0.1 % Cream Active 1 APPLIC TOPICAL Daily as needed for Rash September 14, 2017 12:00am Complies with drug therapyStart: 09-14-2017 End: 43-54-2744Eiqopewdbm (Nasonex) 50 mcg/actuation spray,non-aerosol Active 2 SPRAY INTRANASAL Daily as needed for allergic symptoms July 16, 2024 11:35am Complies with drug therapyStart: 42-34-4740Ssdcywh Nasal, Daily, Refill(s) 0 Start Date: 02/22/11 Status: OrderedStart: 53-76-3066zymdhlwfiz furoate(NASONEX 50 MCG/ACTUATION SPRAY) [place] twice in each nostril once daily. 0 06/26/2008 ActiveComment on above:[place] twice in each nostril once daily. ProAir HFA 108 (90 Base) MCG/ACT (20 sources)Start: 08-22-5811PfxRtv HFA 108 (90 Base) MCG/ACT 2 inhalations Inhalation q4 hrs prn prn Oct, Activespironolactone 25 mg oral tablet (2 sources)Aldosterone AntagonistStart: 24-57-3362akjt 0.5 tablet by mouth in the morningSpironolactone 25 mg tablet Active 25 MG PO .COMPLEX February 24, 2025 12:00am 25 mg orally TAKE 1/2 TABLET BY MOUTH IN THE MORNING; Complies with drug therapytraMADol hydrochloride 50 mg oral tablet (4 sources)Opioid AgonistStart: 02-24-2025 End: 37-68-8057ekrc 1 tablet by mouth twice daily as needed for painTramadol 50 mg tablet Active 50 MG PO Twice daily as needed for pain 60 30 March 02, 2025 12:22pm Complies with drug therapyStart: 82-80-6597orekgjin Refills(s) 0 Start Date: 05/10/23 Status: OrderedvalACYclovir 1000 mg oral tablet (10 sources)Herpesvirus Nucleoside Analog DNA Polymerase Inhibitor, Herpes Simplex Virus Nucleoside Analog DNA Polymerase Inhibitor, Herpes Zoster Virus Nucleoside Analog DNA Polymerase InhibitorStart: 81-62-9443lnrj 1 tablet by mouth every eight hoursValtrex 1 GM 1 tablet Orally tid for 7 days Apr, ActiveVitamin D (1 source)Start: 07-26-8266Jfjskbh D Refills(s) 0 Start Date: 05/10/23 Status: OrderedVitamin D 25 MCG (1000 UT) (13 sources)Start: 01-60-1366nnwx 25 ug by mouth once dailyVitamin D 25 MCG (1000 UT) 5000 units Orally Once a day Dec, Active Completed/Discontinued Medications MedicationDrug Class(es)DatesSig (Normalized)Sig (Original)amoxicillin 875 mg / clavulanate 125 mg oral tablet (20 sources)Penicillin-class AntibacterialStart: 10-24-2024 End: 22-66-0937lyac 1 tablet by mouth twice daily at mealtimeAmoxicillin-Pot Clavulanate 875-125 mg tablet Discontinued 1 TAB PO Twice daily 09 03October 24, 2024 12:00am November 27, 2024 11:42am with foodStart: 01-08-2024 End: 96-65-9198ypwv 1 tablet by mouth twice daily at mealtimeAmoxicillin-Pot Clavulanate 875-125 mg tablet Discontinued 1 TAB PO Twice daily 09 03January 08, 2024 12:00am March 26, 2024 12:37pm with foodStart: 03-46-9271iovf 1 tablet by mouth every twelve hoursAmoxicillin-Pot Clavulanate 875-125 MG 1 tablet Orally every 12 hrs for 10 day(s) Oct, ActiveStart: 04-03-2022 take 1 tablet by mouth twice daily at mealtimeAmoxicillin-Pot Clavulanate 875- 125 MG 1 tablet Orally bid with food Mar, ActiveStart: 52-35-6151wecy 1 tablet by mouth twice daily at mealtimeAmoxicillin-Pot Clavulanate 875-125 MG 1 tablet Orally two times a day with food for 10 day(s) Oct, ActiveStart: 64-24-9482khiq 1 tablet by mouth twice daily at mealtimeAmoxicillin-Pot Clavulanate 875-125 MG 1 tablet Orally bid with food for 10 day(s) Jul, Activeaspirin 81 mg chewable tablet (9 sources)Platelet Aggregation Inhibitor, Nonsteroidal Anti-inflammatory Drug Start: 09-01-2024 End: 89-36-2564pfwc 1 tablet by mouth once dailyAspirin 81 mg tablet,chewable Discontinued 1 TAB PO Daily September 01, 2024 12:00am November 27, 2024 11:42am cefTRIAXone (20 sources)Cephalosporin AntibacterialStart: 92-89-9855Apbbpezc 500 mg Aug, 1 gcetirizine hydrochloride 10 mg oral tablet (20 sources)Histamine-1 Receptor AntagonistStart: 05-16-2007 End: 23-53-5494fjum 1 tablet by mouth once dailyCetirizine (Zyrtec) 10 mg Tablet Discontinued 10 MG PO Daily September 14, 2017 12:00am August 18, 2024 11:47am Cetirizine HCl 10 mg TAKE 1 TABLET DAILY for 90 days Activetake 1 tablet by mouth every twelve hoursCetirizine HCl 10 MG 1 tablet Orally Twice a day Active Comment on above:Take one(1) tablet daily.cyclobenzaprine hydrochloride 10 mg oral tablet (20 sources)Muscle RelaxantStart: 08-28-2023 End: 42-27-5273tmqq 1 tablet by mouth once daily at bedtimeCyclobenzaprine 10 mg tablet Discontinued 10 MG PO Daily at bedtime December 16, 2024 9:14am February 24, 2025 11:44am TAKE 1 TABLET AT BEDTIMEStart: 92-04-4817lgrp 1 tablet by mouth once daily at bedtimeFlexeril 10mg 1 tablet Orally QHS for 90 days Jan, ActiveStart: 98-43-9183Wmfcp: 09-14-2017 End: 40-29-5468jwww 1 tablet by mouth three times daily as needed for muscle spasmsCyclobenzaprine 10 mg Tablet Discontinued 10 MG PO Three times daily as needed for Muscle Spasm September 14, 2017 12:00am September 16, 2017 1:16pm empagliflozin 10 mg oral tablet (4 sources)Sodium-Glucose Cotransporter 2 InhibitorStart: 11-27-2024 End: 55-99-8695nlvw 1 tablet by mouth once daily in the morningEmpagliflozin (Jardiance) 10 mg tablet Discontinued 10 MG PO Every morning November 27, 2024 12:00am February 24, 2025 11:08amesomeprazole 40 mg delayed release oral capsule (20 sources)Proton Pump InhibitorStart: 06-26-2008 End: 70-62-6581gpaa 1 capsule by mouth once dailyEsomeprazole Magnesium (Nexium) 40 mg Capsule,Delayed Release(Dr/Ec) Discontinued 40 MG PO Daily September 14, 2017 12:00am April 22, 2024 9:16amComment on above:Take one(1) capsule daily.84 hr estradiol 0.94992 mg/hr transdermal system (20 sources)EstrogenStart: 09-14-2017 End: 86-48-3348Qtmfyzqew (Vivelle-Dot) 0.0375 mg/24 hr Patch Semiweekly Discontinued 1 PATCH TRANSDERML Once 2017 12:00am August 28, 2023 11:12amglimepiride 1 mg oral tablet (20 sources)SulfonylureaStart: 08-28-2023 End: 29-46-3329Epqcxfcjvvv 1 mg tablet Discontinued 1 MG PO Daily August 28, 2023 10:09am August 28, 2023 11:12am 1 tablet with breakfast or the first main meal of the day Orally Once a day; Note: Source Status: Start; Refills: 1; Qty: 90 Tablet; Provider: Dontrell Aguilar ( )Start: 82-16-9664sqlj 1 tablet by mouth every twenty-four hoursGlimepiride 1 MG 1 tablet with breakfast or the first main meal of the day Orally Once a day for 30days Feb, ActivehydroCHLOROthiazide 25 mg / triamterene 37.5 mg oral capsule (20 sources)Potassium-sparing Diuretic, Thiazide DiureticStart: 09-26-2023 End: 25-86-8997lsbi 1 capsule by mouth once daily in the morningTriamterene- Hydrochlorothiazid 37.5-25 mg capsule Discontinued 1 CAP PO Every morning September 26, 2023 12:00am April 11, 2024 1:05pmhydrocortisone 10 mg/ml / neomycin 3.5 mg/ml / polymyxin b 74182 unt/ml otic solution (12 sources)Aminoglycoside Antibacterial, Polymyxin-class Antibacterial, CorticosteroidStart: 71-51-8533Wjphandb-Polymyxin-HC 3.5-53480-5 4 drops into affected ear Otic Three times a day for 7 days Jul, Not-TakingKetorolac (20 sources)Nonsteroidal Anti-inflammatory Drug, Cyclooxygenase InhibitorStart: 30-99-4352Ygknrzc per 15 mg Jul, 2 cclisinopril 10 mg oral tablet (20 sources)Angiotensin Converting Enzyme InhibitorStart: 09-16-2017 End: 12-38-0114qbmj 1 tablet by mouth once dailyLisinopril 10 mg tablet Discontinued 10 MG PO Daily September 16, 2017 12:00am August 28, 2023 11:13am losartan potassium 50 mg oral tablet (20 sources)Angiotensin 2 Receptor BlockerStart: 11-27-2024 End: 52-68-6793mzts 1 tablet by mouth once dailyLosartan 50 mg tablet Discontinued 50 MG PO Daily November 27, 2024 12:14pm February 24, 2025 11:08am Start: 12-05-2023 End: 64-57-8531xjnt 1 tablet by mouth once dailyLosartan 50 mg tablet Discontinued 50 MG PO Daily April 22, 2024 9:14am September 08, 2024 10:0 7amStart: 08-28-2023 End: 14-61-4129dokn 1 tablet by mouth once dailyLosartan 50 mg tablet Discontinued 50 MG PO Daily August 28, 2023 12:00am August 28, 2023 11:13am Fr eeTextSi tablet Orally Once a day; Note: Source Status: Taking; Refills: 3; Qty: 90 Tablet; Provider: Kg Queentart: 35-71-4591reskaofp Refills(s) 0 Start Date: 05/10/23 Status: OrderedStart: 38-42-0383rjdw 1 tablet by mouth every twenty-four hoursLosartan Potassium 25 MG 1 tablet Orally Once a day for 30 days Oct, Activetake 1 tablet by mouth every twenty-four hours Losartan Potassium 50 MG 1 tablet Orally Once a day for 90 days Activemeloxicam 15 mg oral tablet (20 sources)Nonsteroidal Anti-inflammatory DrugStart: 02-24-2025 End: 75-85-6058orrs 1 tablet by mouth once dailyMeloxicam 15 mg tablet Discontinued 15 MG PO Daily February 24, 2025 11:18am February 24, 2025 11:32am Start: 01-26-2025 End: 40-37-4805dcnq 1 tablet by mouth once dailyMeloxicam 15 mg tablet Discontinued [address] [id number] January 26, 2025 8:53am February 24, 2025 11:19am TAKE 1 TABLET BY MOUTH DAILYStart: 06-13-2024 End: 40-22-1467akfc 1 tablet by mouth once dailyMeloxicam 15 mg tablet Discontinued 15 MG PO Daily June 13, 2024 1:22pm January 26, 2025 8:54am Start: 01-14-2024 End: 59-72-0238Teoaddoak 15 mg tablet Discontinued [address] [id number] January 14, 2024 10:16am June 13, 2024 1:23pm TAKE 1 TABLET DAILYStart: 01-14-2024 End: 89-43-8560Vbgtmuskd 15 mg tablet Discontinued 0 [address] [id number] January 14, 2024 10:16am June 13, 2024 1:23pm TAKE 1 TABLET DAILYStart: 01-14-2024 End: 71-89-3071Puqapmdxe 15 mg tablet Discontinued [address] [id number] January 14, 2024 9:16am June 13, 2024 12:23pm TAKE 1 TABLET DAILYStart: 34-62-8212Tpcbkbqgx 15 mg tablet Active 0 [address] [id number] January 14, 2024 9:16am TAKE 1 TABLET DAILYStart: 24-58-2635Slhpjraab Active [address] [id number] January 14, 2024 9:16am TAKE 1 TABLET DAILYStart: 21-26-5000Xdrxxhlgx Active 0 [address] January 14, 2024 10:16am TAKE 1 TABLET DAILYStart: 08-28-2023 End: 97-98-6631ojvc 1 tablet by mouth once dailyMeloxicam 15 mg tablet Discontinued 15 MG PO Daily August 28, 2023 12:00am January 14, 2024 10:17am TAKE 1 TABLET DAILY; Refills: 0; Provider: Dontrell Aguilar CMeloxicam 15 mg TAKE 1 TABLET DAILY for 90 days Gwcyod01 hr metFORMIN hydrochloride 500 mg extended release oral tablet (20 sources)BiguanideStart: 06-13-2024 End: 13-61-8713Igaqnzcsw 500 mg tablet extended release 24 hr Discontinued 1000 MG PO .[facility] June 13, 2024 1:22pm February 24, 2025 11:09am 1,000 mg orally BID as normal;Start: 01-14-2024 End: 75-41-0142Mhzuhhdhf 500 mg tablet extended release 24 hr Discontinued 0 [address] [id number] April 22, 2024 9:13am June 13, 2024 1:23pm TAKE 2 TABLETS TWICE A DAY WITH MEALSStart: 01-14-2024 End: 84-46-5418Tblgucxsy 500 mg tablet extended release 24 hr Discontinued 0 [address] [address] January 130:41am April 22, 2024 9:14am TAKE 2 TABLETS TWICE A DAY WITH MEALSStart: 01-14-2024 End: 32-63-2351Yidhmkovb 500 mg tablet extended release 24 hr Discontinued 0 [address] [address] January 1349:41am April 22, 2024 8:14am TAKE 2 TABLETS TWICE A DAY WITH MEALSStart: 13-92-7669Wcytmymgy Active [address] [id number] January 14, 2024 9:41am TAKE 2 TABLETS TWICE A DAY WITH MEALS Start: 48-50-4336Pchbstiun Active [address] [id number] January 14, 2024 10:41am TAKE 2 TABLETS TWICE A DAY WITH MEALSStart: 01-14-2024 End: 15-57-5664djzr 2 tablets by mouth twice daily at mealtimeMetformin 500 mg tablet extended release 24 hr Discontinued 500 MG PO .[facility] January 14, 2024 10:36am January 14, 2024 10:42am 500 mg orally take 2 (500 mg) tabs twice a day with meals;Start: 10-29-2023 End: 90-95-7182luno 1 tablet by mouth once dailyMetformin 500 mg tablet extended release 24 hr Discontinued 500 MG PO Daily October 29, 2023 2:48pm January 14, 2024 10:37amStart: 19-70-5463gfgwhnlzu Refills(s) 0 Start Date: 05/10/23 Status: OrderedStart: 52-64-9322hhpa 2 tablets by mouth twice daily at mealtime metFORMIN HCl ER 500 MG 2 tablets Orally bid with meals for 90 days Oct, ActiveStart: 73-03-6252lcer 2 tablets by mouth twice dailymetFORMIN ER (GLUCOPHAGE XR) 500 mg 24 hr tablet Take 2 tablets by mouth twice daily. 360 tablet 3 07/22/2021 ActiveStart: 01-28-7398utpKHSKLV HCl 500 MG 1 tablet with largest meal of the day Orally Once a day Oct, ActiveStart: 09-14-2017 End: 62-91-6453Lsiaethtn 500 mg Tablet Extended Release 24 Hr Discontinued 500 MG PO Every 48 hours September 14, 2017 12:00am October 29, 2023 2:48pmComment on above:Take 2 tablets by mouth twice daily.montelukast 10 mg oral tablet (20 sources)Leukotriene Receptor AntagonistStart: 02-22-2011 End: 16-09-6582xqsi 1 tablet by mouth once daily at bedtimeMontelukast (Singulair) 10 mg Tablet Discontinued 10 MG PO Daily at bedtime September 14, 2017 12:00am April 22, 2024 9:15amComment on above:Take 10 mg by mouth daily at bedtime.Sncxvfud-Xbu-Leinydi Gluconate (Centrum) 9 mg iron/15 mL Liquid (20 sources)Start: 09-14-2017 End: 31-31-8871xuos 2 tablets by mouth once zuujwUuxsafsl-Hnx-Yerrmfy Gluconate (Centrum) 9 mg iron/15 mL Liquid Discontinued 2 TAB PO Daily September 13, 2017 11:00pm August 28, 2023 10:13amStart: 09-14-2017 End: 69-30-2650bhur 2 tablets by mouth once itmknUbnzjkvw-Loe-Ratttao Gluconate (Centrum) 9 mg iron/15 mL Liquid Discontinued 2 TAB PO Daily September 14, 2017 12:00am August 28, 2023 11:13amMULTIVIT-MINERALS/FERROUS GLUC (CENTRAM-CARE ORAL) (5 sources)MULTIVIT-MINERALS/FERROUS GLUC (CENTRAM-CARE ORAL) Take by mouth twice daily. 0 ActiveComment on above:Take by mouth twice daily.predniSONE 20 mg oral tablet (20 sources)Start: 09-01-2024 End: 41-95-9598thfg 3 tablets by mouth once daily, then take 2 tablets by mouth once daily, then take 1 tablet by mouth once daily, then take 0.5 tablet by mouth once daily at mealtimePrednisone 20 mg tablet Discontinued 0 PO .COMPLEX 20 13 October 24, 2024 12:00am November 27, 2024 11:44am 3 tabs a day x3 days then take 2 tabs a day x3 days then take 1 tab a day x3 then take 1/2 tablet a day x4 days with food or milk orally;Start: 05-16-2024 End: 41-68-0854teqx 3 tablets by mouth once daily at [...] and then 1 tab a day x3 daysorally WITH FOOD OR MILK;Start: 06-45-4071kbyuwwAVPT 10 MG 4 tablets daily x 3 days, 2 tablets daily x 3 days, 1.5 tablet daily x 7 days, 1 tablet daily x 7 days, 0.5 tablets daily x 7 days Orally Once a day for 27 days Aug, ActiveStart: 86-69-6248oirbofMNRS 10 MG 4 tabs x 7 days, 3 tabs x 7 days, 2 tabs x 7 days, 1 tab x 7 days then stop OrallyOnce a day for 28 days Nov, Not-TakingStart: 58-91-5348ofeyewPHVF 20 MG take 3 tablets Orally x3 days, then 2 tabs x3 days then 1 tab a day x3 days then take 1/2 tablet x 4 days with food or milk for 13 days Oct, ActiveStart: 88-27-1507yiuspmFRSY 10 MG 4 tablets daily for 3 days, 2 tablets daily for 3 days, 1 tablet daily for 7 days Orally Once a day for 13 days Aug, ActiveStart: 62-10-4690iaxh 1 tablet by mouth every twenty-four hours predniSONE 10 MG 1 tablet Orally Once a day Feb, ActivepredniSONE 5 MG 1/2 tablet Orally weaning down as directed Zfzzmb27 hr scopolamine 0.0139 mg/hr transdermal system (14 sources)AnticholinergicStart: 15-52-4315Kwlazpdzigt 1 MG/3DAYS 1 patch to skin behind the ear Transdermal change q72 hours Jun, Not-TakingTB Test (20 sources)Start: 48-63-3777FF Test Jan, 0.1 mL24 hr venlafaxine 37.5 mg extended release oral capsule (3 sources)Serotonin and Norepinephrine Reuptake InhibitorStart: 10-07-2021 venlafaxine ER (EFFEXOR XR) 37.5 mg 24 hr capsule take one a day, if tolerated after two weeks increase to two 60 capsule 3 10/07/2021 ActiveComment on above: take one a day, if tolerated after two weeks increase to twoVitamin D [place] ([employer]) (3 sources)Start: 03-30-2016 End: 88-30-2499yefc 1 capsule by mouth once daily at mealtimeVitamin D [place] ([employer]) Take 1 capsule by mouth daily with food. 0 03/30/2016 10/13/2021 Discontinued (Course of therapy completed)Start: 48-53-4417jzxy 1 capsule by mouth once daily at mealtimeVitamin D [place] ([employer]) Take 1 capsule by mouth daily with food. 0 03/30/2016 ActiveComment on above: Take 1 capsule by mouth daily with food. Problems Active Problems Problem ClassificationProblemDateDocumented DateEpisodic/ChronicAbdominal pain (20 sources)Abdominal pain; Translations: [Unspecified abdominal pain]Onset: 03-15-2021 Resolved: 74-68-9435UaajjlboRencgsf disorders (20 sources)Generalized anxiety disorder; Translations: [Generalized anxiety disorder]ChronicAsthma (20 sources)Asthma; Translations: [Unspecified asthma, uncomplicated]Onset: 02-21-2021 Resolved: 59-18-5428ElyznbmKtzczdz dysrhythmias (20 sources)Palpitations; Translations: [Palpitations]Onset: 68-25-6661Sdxcskdf Chronic obstructive pulmonary disease and bronchiectasis (5 sources)Pulmonary emphysema; Translations: [Emphysema, unspecified]12-08-2024 ChronicCongestive heart failure; nonhypertensive (7 sources)Chronic diastolic (congestive) heart failure; Translations: [Congestive heart failure]Onset: 15-55-5867PgcguilOirvdnjl mellitus with complications (5 sources)Type 2 diabetes mellitus; Translations: [Type 2 diabetes mellitus with hyperglycemia]Onset: 19-28-2416MgcbhmfFlyiwflj mellitus without complication (20 sources)Type 2 diabetes mellitus without complication; Translations: [Type 2 diabetes mellitus without complications]Onset: 03-15-2021 Resolved: 07-44-8227XdfcbxbKnetvoca mellitus without complication (20 sources)Hyperglycemia; Translations: [Hyperglycemia, unspecified]Episodic Digestive congenital anomalies (20 sources)Disorder of tongue; 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]ChronicDisorders of lipid metabolism (20 sources)Hyperlipidemia; Translations: [Hyperlipidemia, unspecified]Onset: 07-04-2021 Resolved: 91-98-8286TemwaagZ Codes: Natural/environment (2 sources)Bitten by cat, initial encounterEpisodicEsophageal disorders (20 sources)Gastroesophageal reflux disease; Translations: [Gastro-esophageal reflux disease without esophagitis]Onset: 02-21-2021 Resolved: 77-20-6106MmrwpgxZiyuzranr hypertension (20 sources)Hypertensive disorder; Translations: [Essential (primary) hypertension]Onset: 783650-70-4662WqvmrzsEkudy of unknown origin (1 source)Fever, unspecifiedEpisodicGenitourinary symptoms and ill-defined conditions (4 sources)Nocturia; Translations: [NOCTURIA]Onset: 71-70-0104EfgfckrbWnxrhesj; including migraine (20 sources)Headache; Translations: [Headache]EpisodicHeadache; including migraine (4 sources)Headache; including migraine; Translations: [HEADACHE UNSPECIFIED] Onset: 85-51-9894Ugvawef and fatigue (5 sources)Chronic fatigue syndrome; Translations: [Chronic fatigue, unspecified]Onset: 587380-01-7434ZmijvshFbhufvx and fatigue (20 sources)Other fatigue; Translations: [Fatigue]EpisodicMiscellaneous mental health disorders (5 sources)Binge eating disorder; Translations: [Binge eating disorder]Onset: 929753-41-0637YcxphhuHbux disorders (20 sources)Depressive disorder; Translations: [Major depressive disorder, single episode, unspecified]Onset: 10-20-2021 Resolved: 93-08-2265NejoqloLxpjww and vomiting (20 sources)Nausea; Translations: [Nausea]EpisodicNoninfectious gastroenteritis (1 source)Noninfective gastroenteritis and colitis, unspecifiedEpisodic Nonspecific chest pain (2 sources)Other chest pain; Translations: [Other chest pain]Onset: 01-05-2025 EpisodicNutritional deficiencies (20 sources)Vitamin D deficiency; Translations: [Vitamin D deficiency, unspecified]Onset: 98-94-9319RhtjdkjDhgkmfzcjkh deficiencies (1 source)Dietary selenium deficiency; Translations: [DIETARY SELENIUM DEFICIENCY]Onset: 29-72-4500UmqrzbzvHedkyalcqjeoas (1 source)Tvtsgcnkrnurfc52-64-8509DvceapvZnbpq aftercare (20 sources)Long-term current use of systemic steroid; Translations: [long term care pharmacist (current) use of systemic steroids]EpisodicOther aftercare (9 sources)Other long term care pharmacist (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; Translations: [Long-term (current) use of other medications]Onset: 03-15-2021 Resolved: 57-90-1663CxfrlnnuIbzlx aftercare (1 source)half-way (current) use of oral hypoglycemic drugs; Translations: [FDC USE ORAL HYPOGLYCEMIC DX]Onset: 39-88-7178AvygoqnqBwoll aftercare (20 sources)Long-term current use of drug therapy; Translations: [Other long term care pharmacist (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]51-72-4543JoieotleAnakp circulatory disease (20 sources)Elevated blood-pressure reading, without diagnosis of hypertension; Translations: [Elevated blood pressure reading without diagnosis of hypertension]Onset: 10-20-2021 Resolved: 07-17-8347RzesxdvuFzgzx circulatory disease (20 sources)Elevated blood pressure; Translations: [Elevated blood-pressure reading, without diagnosis of hypertension]32-48-6664VedjabxgIowpm connective tissue disease (20 sources)Fibromyalgia; Translations: [Fibromyalgia]Onset: 09-20-2015 90-24-5884MrwhcwraCdlqg connective tissue disease (20 sources)Cramp; Translations: [Cramp and spasm]EpisodicOther connective tissue disease (1 source)Myalgia, unspecified siteEpisodicOther ear and sense organ disorders (5 sources)Sensorineural hearing loss, bilateral; Translations: [Sensorineural hearing loss, bilateral]Onset: 050658-18-4148XnpupfuVekwx ear and sense organ disorders (20 sources)Asymmetrical sensorineural hearing loss; Translations: [Sensorineural hearing loss, bilateral]67-95-5989CotpxliYutpk ear and sense organ disorders (11 sources)Sensorineural hearing loss, bilateral; Translations: [Sensorineural hearing loss, asymmetrical]77-93-9211DboyxifSclle ear and sense organ disorders (1 source)Otalgia, right earEpisodicOther ear and sense organ disorders (1 source)Unspecified acute noninfective otitis externa, right earEpisodicOther ear and sense organ disorders (20 sources)Tinnitus of vascular origin; Translations: [Pulsatile tinnitus, unspecified ear]96-25-9864YsatmdjfYivmk ear and sense organ disorders (20 sources)Tinnitus; Translations: [Tinnitus, unspecified ear]09-26-2023 EpisodicComment on above:right sided tinnitusOther ear and sense organ disorders (5 sources)Tinnitus, unspecified ear; Translations: [Tinnitus, unspecified] 54-59-3445DxamduxpAvlfq gastrointestinal disorders (20 sources)Diarrhea; Translations: [Diarrhea, unspecified]91-31-2946Kvgztnlm Other gastrointestinal disorders (11 sources)Burping; Translations: [Eructation]39-05-2638HvevyzgiGpska gastrointestinal disorders (5 sources)Eructation; Translations: [Flatulence, eructation, and gas pain] 41-11-5060FkjbhmjmVdlss liver diseases (20 sources)Steatosis of liver; Translations: [Fatty (change of) liver, not elsewhere classified]ChronicOther liver diseases (20 sources)Inflammatory disease of liver; Translations: [Inflammatory liver disease, unspecified]76-31-6548LwwjdtqVqkuv lower respiratory disease (20 sources)Cough; Translations: [Cough]EpisodicOther lower respiratory disease (6 sources)Wheezing; Translations: [Wheezing]Onset: 10-20-2021 Resolved: 73-67-1364ZezbgjvpHrjiq lower respiratory disease (3 sources)Shortness of breath; Translations: [SHORTNESS OF BREATH]Onset: 18-28-6520CkcwrsfiSwsof lower respiratory disease (11 sources)Wheezing; Translations: [Wheezing]80-34-8406YnasmgboTbnbo lower respiratory disease (10 sources)Cough; Translations: [Acute cough]44-72-6733YfiamdujMckvd nervous system disorders (20 sources)Chronic pain; Translations: [Other chronic pain]14-61-8980Njnqmyq Other nervous system disorders (20 sources)Other chronic pain; Translations: [Other chronic pain]ChronicOther nervous system disorders (20 sources)Paresthesia of hand ; Translations: [Paresthesia of skin]Episodic Other nervous system disorders (20 sources)Disorder of taste; Translations: [Unspecified disturbances of smell and taste]EpisodicOther non-traumatic joint disorders (4 sources)Pain in unspecified joint; Translations: [Polyarthralgia M25.50] Onset: 03-15-2021 Resolved: 60-11-0802ZfxoloeyWwhot non-traumatic joint disorders (16 sources)Pain in unspecified hip; Translations: [Pain in joint, pelvic region and thigh]EpisodicOther non-traumatic joint disorders (20 sources)Pain in left shoulder; Translations: [Left shoulder pain]Episodic Other non-traumatic joint disorders (20 sources)Multiple joint pain; Translations: [Pain in unspecified joint] 02-30-5387WknvkwrdJnwpv non-traumatic joint disorders (20 sources)Hip pain; Translations: [Pain in unspecified hip]99-36-4767Mioweuno Other nutritional; endocrine; and metabolic disorders (20 sources)Body mass index 40+ - severely obese; Translations: [Body mass index (BMI) 50.0-59.9, adult]Onset: 976776-57-2221OmrmxafQimgc nutritional; endocrine; and metabolic disorders (5 sources)Metabolic syndrome X; Translations: [Metabolic syndrome]Onset: 080714-29-8503LfrbljaSzvjw nutritional; endocrine; and metabolic disorders (20 sources)Hypercalcemia; Translations: [Hypercalcemia]ChronicOther nutritional; endocrine; and metabolic disorders (20 sources)Obesity; Translations: [Obesity, unspecified]ChronicOther nutritional; endocrine; and metabolic disorders (2 sources)Abnormal weight lossOnset: 10-20-2021 Resolved: 11-10-2724PjhuxuxyVfdzh nutritional; endocrine; and metabolic disorders (2 sources)Abnormal weight gainEpisodicOther screening for suspected conditions (not mental disorders or infectious disease) (20 sources)CT of chest abnormal; Translations: [Abnormal findings on diagnostic imaging of other specified body structures]80-29-7212TgajaciIjearfg on above:CT [facility] screening for suspected conditions (not mental disorders or infectious disease) (20 sources)Liver function tests abnormal; Translations: [Other specified abnormal findings of blood chemistry]Onset: 77-11-0962SxyffcbiFgzkd upper respiratory disease (20 sources)Seasonal allergy; Translations: [Other seasonal allergic rhinitis] 82-42-1684TukgrncSsssn upper respiratory disease (13 sources)Other seasonal allergic rhinitis; Translations: [Allergic rhinitis, cause unspecified]Onset: 02-21-2021 Resolved: 05-05-3276AmpyjipUhnuu upper respiratory disease (1 source)Nasal congestion; Translations: [NASAL CONGESTION]Onset: 09-14-2022 EpisodicOther upper respiratory disease (2 sources)Nasal sinus problem; Translations: [Other specified disorders of nose and nasal sinuses]22-73-4314OdwqqtakDyxrv upper respiratory infections (11 sources)Acute sinusitis, unspecified; Translations: [Acute sinusitis] EpisodicOtitis media and related conditions (20 sources)Dysfunction of eustachian tube; Translations: [Other specified disorders of Eustachian tube, unspecified ear]Onset: 21-63-8248PxkegisvUnksdvkz codes; unclassified (20 sources)Insomnia; Translations: [Insomnia, unspecified]EpisodicResidual codes; unclassified (2 sources)Pain, unspecified; Translations: [PAIN UNSPECIFIED]Onset: 08-23-2022 EpisodicResidual codes; unclassified (1 source)Acquired absence of other specified parts of digestive tract; Translations: [ACQ ABSENCE OTH PART DIGESTV TRACT]Onset: 96-41-9999Klqiiyxm Residual codes; unclassified (1 source)Acquired absence of both cervix and uterus; Translations: [ACQUIRED ABSENCE BOTH CERVIX AND UTERUS]Onset: 87-85-4158ZmwepwsdAmroefgeyip; intervertebral disc disorders; other back problems (20 sources)Inflammation of sacroiliac joint; Translations: [Sacroiliitis, not elsewhere classified]22-67-0230JmcjwpwCylnqolbfcy; intervertebral disc disorders; other back problems (20 sources)Neck pain; Translations: [Cervicalgia]Onset: 10-20-2021 Resolved: 61-64-9876QxhqojceJaibjij disorders (20 sources)Acquired hypothyroidism; Translations: [Hypothyroidism, unspecified] Onset: 09-20-2015 Resolved: 34-20-0183JmqaqdyAsbfmueqyslg (4 sources)COUGH, UNSPECIFIED; Translations: [COUGH, UNSPECIFIED]Onset: 16-41-1832Fincpvzorryi (1 source)PERSONAL HISTORY OF COVID-19; Translations: [PERSONAL HISTORY OF COVID-19]Onset: 04-60-8996Ulincmjqmvds (1 source)CONTACT W/AND (SUSP) EXPOS COVID-19; Translations: [CONTACT W/AND (SUSP) EXPOS COVID-19]Onset: 32-44-6165Rimuaaf tract infections (20 sources)Urinary tract infectious disease; Translations: [Urinary tract infection, site not specified]06-44-2243Yglnmzmp Past or Other Problems Problem ClassificationProblemDateDocumented DateEpisodic/ChronicChronic obstructive pulmonary disease and bronchiectasis (1 source)Bronchitis, not specified as acute or chronic; Translations: [Bronchitis J40]Onset: 02-24-2021 Resolved: 75-57-3049BpfcsxhmFkpqv connective tissue disease (1 source)Pain in left handOnset: 05-25-2021 Resolved: 17-72-9977LjxtxldfMpqhq connective tissue disease (1 source)Pain in leg, unspecifiedOnset: 07-04-2021 Resolved: 60-58-1203XjfhvaqtAkien connective tissue disease (1 source)Fibromyalgia; Translations: [Fibromyalgia]Onset: 22-36-5943Qpeebnkw Other gastrointestinal disorders (12 sources)Diarrhea, unspecified; Translations: [Diarrhea]Onset: 07-30-2024 EpisodicUnclassified (1 source)Lumbar pain M54.50Onset: 07-04-2021 Resolved: 05-74-4618Airbkdqljfro (1 source)Cough R05.9Onset: 10-20-2021 Resolved: 24-55-8730Jbkolrykkhxi (1 source)COUGH, UNSPECIFIED; Translations: [COUGH, UNSPECIFIED]Onset: 11-29-2021 Results Test NameValueInterpretationReference RangeFacilityBasophils Auto (Bld) [#/Vol] Ordered By: Jeff Jon on 56-81-1713Vrgqttyxc (Bld) [#/Vol]0.1 10 3/uL0.0-0.1 [facility] TroyBasophils/100 WBC Auto (Bld)Ordered By: Jeff Jon on 62-13-3654Paqwbhatg/100 WBC (Bld)1.0 %0.2-2.0[facility] TroyCholesterol in LDL Calc [Mass/Vol]Ordered By: Jeff Jon on 17-95-8760Jzqcewkymkl in LDL [Mass/Vol]53.0 mg/dLKettering Health TroyComment on above:<100 mg/dl AZSEBBR675-558 mg/dl NEAR OR ABOVE YNMFATH802- 159 mg/dl BORDERLINE MIZA954-350 mg/dl HIGH>190 mg/dl VERY HIGHCholesterol in VLDL Calc [Mass/Vol]Ordered By: Jeff Jon on 80-31-1559Ygokhbysmty in VLDL [Mass/Vol]10.8 mg/dLKettering Health TroyEosinophils/100 WBC Auto (Bld)Ordered By: Jeff Jon on 44-92-1149Gutiozfctng/100 WBC (Bld)4.8 %0.9-7.0 [facility] TroyErythrocyte distribution width Auto (RBC) [Ratio]Ordered By: Jeff Jon on 85-43-6553Kmgbwgmhznf distribution width (RBC) [Ratio]11.9 %11.0-15.0[facility] TroyGlobulin Calc (S) [Mass/Vol]Ordered By: Jeff Jon on 42-92-9814Ngmcfcec (S) [Mass/Vol]3.8 g/dL [facility] TroyGlomerular filtration rate (GFR) estimation in non- AmericanOrdered By: Jeff Jon on 15-92-3794AZZ/1.73 sq M.predicted among non-blacks MDRD (S/P/Bld) [Vol rate/Area]60 mL/min/{1.73_m2} >=60 mL/min/1.73m 2FAdena Health SystemGlucose mean value [Mass/volume] in Blood Estimated from glycated hemoglobinOrdered By: Jeff Jon on 17-94-4512Vefgisc glucose Estimated from glycated hemoglobin (Bld) [Mass/Vol]194 mg/dLKettering Health TroyHematocrit Auto (Bld) [Volume fraction]Ordered By: Jeff Jon on 89-40-2894Wgjtqbtxqo (Bld) [Volume fraction]44.8 %36.0-48.0[facility] TroyHemoglobin A1c percentageOrdered By: Jeff Jon on 73-53-7870AuE0f (Bld) [Mass fraction]8.4 % High4.5-6.2FAdena Health SystemComment on above:ADA RECOMMENDED LIMIT 4.0 - 6.0ADA THERAPEUTIC TARGET < 7.0ACTION SUGGESTED> 7.0Hemoglobin [Mass/volume] in BloodOrdered By: Jeff Jon on 93-81-8209Qgahzcxzjp (Bld) [Mass/Vol]15.1 g/dL12.0-16.0[facility] TroyLaboratory - Chemistry and Chemistry - challengeOrdered By: Jeff Jon on 61-80-6433Ulpdjiv [Mass/Vol]4.1 g/dL3.4-5.0[facility] TroyALP [Catalytic activity/Vol]102 U/N10-879ZpqukixerKettering Health TroyALT [Catalytic activity/Vol]32 U/U57-36BbszwyyvwKettering Health TroyAST [Catalytic activity/Vol]22 U/H64-34RmsdnqcddKettering Health TroyBilirubin [Mass/Vol]0.7 mg/dL0.2-1.0[facility] TroyCalcium [Mass/Vol]10.0 mg/dL 8.5-10.1FAdena Health SystemChloride [Moles/Vol]102 mmol/L98-107 [facility] TroyCholesterol [Mass/Vol]130 mg/dL<=200[facility] TroyCholesterol in HDL [Mass/Vol]67 mg/qJBpaj62-56EqunkyskbKettering Health TroyComment on above:> or =60 mg/dl - LOW CARDIOVASCULAR RISK<40 mg/dl - HIGH CARDIOVASCULAR RISKCO2 [Moles/Vol]30.0 mmol/L21.0-32.0 [facility] TroyCreatinine [Mass/Vol]0.96 mg/dL0.55-1.02 [facility] TroyFree T4 [Mass/Vol]2.15 ng/dLHigh0.76-1.46 [facility] TroyGFR/1.73 sq M.predicted MDRD (S/P/Bld) [Vol rate/Area]mL/min/{1.73_m2}>=60 mL/min/1.73m 2FAdena Health System Glucose [Mass/Vol]145 mg/aBLtrr11-674ZmglihqnvKettering Health TroyPotassium [Moles/Vol]4.3 mmol/L3.5-5.1FAdena Health SystemProtein [Mass/Vol] 7.9 g/dL6.4-8.2FOhioHealth Pickerington Methodist Hospitalodium [Moles/Vol]142 mmol/L 136-145[facility] TroyTriglyceride [Mass/Vol]54 mg/dL<=150 [facility] TroyTSH Qn0.282 m[IU]/LLow0.358-3.740[facility] TroyUrea nitrogen [Mass/Vol]19.0 mg/dLHigh7.0-18.0[facility] TroyUrea nitrogen/Creatinine [Mass ratio]19.8 mg/mgKettering Health TroyLaboratory - Hematology and Cell countsOrdered By: Jeff Jon on 65-12-9127Wtchjavi granulocytes/100 WBC (Bld)0.4 %0.0-0.5FAdena Health SystemLeukocytes [#/volume] corrected for nucleated erythrocytes in Blood by Automated counOrdered By: Jeff Jon on 41-04-6066REZ corrected for nucl RBC Auto (Bld) [#/Vol]8.0 10 3/uL4.0-11.0[facility] TroyLymphocytes Auto (Bld) [#/Vol]Ordered By: Jeff Jon on 92-11-3722Rtatluhtynq (Bld) [#/Vol]2.3 10 3/uL1.2-3.8[facility] TroyLymphocytes/100 WBC Auto (Bld)Ordered By: Jeff Jon on 02-24-2025 Lymphocytes/100 WBC (Bld)28.9 %20.5-60.0[facility] HospitalH Auto (RBC) [Entitic mass]Ordered By: Jeff Jon on 51-28-7841AVD (RBC) [Entitic mass]31.0 pg26.7-34.0[facility] TroyMCHC Auto (RBC) [Mass/Vol]Ordered By: Jeff Jon on 68-17-7372VYHV (RBC) [Mass/Vol]33.7 g/dL 29.9-35.2FAdena Health SystemMCV Auto (RBC) [Entitic vol]Ordered By: Jeff Jon on 30-62-2915ZUQ (RBC) [Entitic vol]92.0 fL81.0-99.0[facility] TroyMonocytes Auto (Bld) [#/Vol]Ordered By: Jeff Jon on 90-47-8019Otrvcjzqm (Bld) [#/Vol]0.5 10 3/uL0.3-0.8[facility] TroyMonocytes/100 WBC Auto (Bld)Ordered By: Jeff Jon on 02-24-2025 Monocytes/100 WBC (Bld)6.6 %1.7-12.0[facility] TroyNeutrophils Auto (Bld) [#/Vol]Ordered By: Jeff Jon on 94-38-1049Cixycfkqcrt (Bld) [#/Vol]4.7 10 3/uL1.4-6.5FAdena Health SystemNeutrophils/100 WBC Auto (Bld)Ordered By: Jeff Jon on 62-10-2216Ocrlhvtsdqu/100 WBC (Bld)58.3 % 43.0-75.0[facility] TroyNo Panel InformationOrdered By: Jeff Jon on 089157-Xkmqhem Vitamin D Total43.0 ng/mLKettering Health TroyComment on above:<20 ng/mL Vit D bwffveddi86-<30 ng/mL Vit D dpfulkegmjcd30-642 ng/mL Vit D sufficient>100 ng/mL Potential Toxicity Eosinophils # (Auto)0.4 10 3/uL0.0-0.7FAdena Health SystemFree Triiodothyronine3.08 pg/mL2.18-3.98[facility] TroyImmature Granulocyte # (Auto)0.03 10 3/uL0.00-0.03[facility] Platelet mean volume Auto (Bld) [Entitic vol]Ordered By: Jeff Jon on 81-83-2149Xnsdfzfc mean volume (Bld) [Entitic vol]9.9 fL9.5-13.5FAdena Health SystemPlatelets Auto (Bld) [#/Vol]Ordered By: Jeff Jon on 42-67-3017Eaxfrqyro (Bld) [#/Vol]360 10 3/iQ857-076FqbnawzxpKettering Health TroyRBC Auto (Bld) [#/Vol]Ordered By: Jeff Jon on 84-99-5045FVS (Bld) [#/Vol]4.87 10 6/uL4.20-5.40Pro[facility] Deaconess Hospitalerum or plasma albumin/globulin mass ratioOrdered By: Jeff Jon on 02-24-2025 Albumin/Globulin [Mass ratio]1.1 {ratio}[facility]acon[facility] Hospitalerum or plasma anion gap determinationOrdered By: Jeff Jon on 43-40-7021Inowb gap [Moles/Vol]14.3 mmol/LFOhioHealth Pickerington Methodist Hospitalerum or plasma insulin measurement (units/volume)Ordered By: Jeff Jon on 51-16-6542Vtnqkxk Qn12.7 u[iU]/mL2.6-24.9[facility] TroyComment on above:Performed at: [facility] Lab[address] [id number] Director: Giuseppe Newell PhD, Phone: [phone] or plasma total cholesterol/high density lipoprotein (HDL) cholesterol mass ratOrdered By: Jeff Jon on 02-24-2025 Cholesterol.total/Cholesterol in HDL [Mass ratio]1.9 {ratio}[facility] TroyComment on above:3.3 - 4.4 LOW RISK4.4 - 7.1 AVERAGE RISK7.1 - 11.0 MODERATE RISK>11.0 HIGH ALIQ27ao 45-05-118880Vk was seen 02/09/25[facility] CenterFollow-Upon 61-94-5722Vkxkrx-[id number] Canelo Pathak 1965 F Date Provider Department Center 02/09/2025 NEO MORENO NUBIA [facility] Family History Problem Relation Age of Onset Pulmonary embolism Mother Kidney disease Father Heart attack Father Family Status - Relation Status Age at Mother Father Brother Alive Level of Service:01375 [place] OFFICE/OUTPATIENT ESTABLISHED MOD MDM 30 [facility] OhioGlomerular filtration rate (GFR) estimation in non- AmericanOrdered By: Neo Espino on 72-11-5389JHD/1.73 sq M.predicted among non-blacks MDRD (S/P/Bld) [Vol rate/Area]mL/min/{1.73_m2}>=60 mL/min/1.73m 2FAdena Health SystemLaboratory - Chemistry and Chemistry - challengeOrdered By: Neo Espino on 00-70-9778Uwzxfpj [Mass/Vol]9.6 mg/dL8.5-10.1FAdena Health SystemChloride [Moles/Vol] 102 mmol/T91-791UgwwuomccKettering Health TroyCO2 [Moles/Vol]27.3 mmol/L 21.0-32.0[facility] TroyCreatinine [Mass/Vol]0.94 mg/dL 0.55-1.02[facility] TroyGFR/1.73 sq M.predicted MDRD (S/P/Bld) [Vol rate/Area]mL/min/{1.73_m2}>=60 mL/min/1.[address]m [address] [place], [place] [address]Glucose [Mass/Vol]175 mg/iQXrie35-440UjbllikcaKettering Health Troy Potassium [Moles/Vol]4.5 mmol/L3.5-5.1FOhioHealth Pickerington Methodist Hospitalodium [Moles/Vol]139 mmol/R946-815IukdziwyfKettering Health TroyUrea nitrogen [Mass/Vol]19.0 mg/dLHigh7.0-18.0[facility] TroyUrea nitrogen/Creatinine [Mass ratio]20.2 mg/mgProtestant Deaconess Hospitalerum or plasma anion gap determinationOrdered By: Neo Fitzpatricklloyd on 13-59-1422Spdgx gap [Moles/Vol]14.2 mmol/LFAdena Health System36on Patient called back and I advised her she could stop Imdur and metformin (per PCP). She was very happy and verbalized understanding.[facility]36LM for patient to return my call.[facility]36on [phone] called s/p cath on 01/08. You started [...] gets very lightheaded and nauseous. Any recommendations? Thanks![facility] WestTelephoneon [phone] [id number] Canelo Pathak 1965 F Date Provider Department Center 01/12/2025 JURGEN HAWKINS NUBIA L[facility] Family History Problem Relation Age of Onset Pulmonary embolism Mother Kidney disease Father Heart attack Father Family Status - Relation Status Age at Mother Father Brother AliveNormalUniversity of [facility]land [facility] 41-29-0582VNGP Attestation signed by Won Blanton MD at 01/08/2025 8:20 AM Won Blanton MD, MPH, FACC, [facility], [facility] Interventional Cardiology Pager Email: [email or web address] Patient: Canelo Pathak Pre-sedation Evaluation: Moderate sedation [...] Hypertension 10/11/2023 Hypothyroidism 10/11/2023 Osteoarthritis 10/11/2023 Other long term care pharmacist (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 10/11/2023 Palpitation 10/11/2023 Polyarthralgia 10/11/2023 Seasonal allergies 10/11/2023 UTI (urinary tract infection) 10/11/2023 Vitamin D deficiency 10/11/2023 Diabetes ([facility]) 09/24/2023 Asymmetric SNHL (sensorineural hearing loss) 09/24/2023 Right-sided tinnitus 09/24/2023 Cholesteatoma of attic of ear, 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 Pulsatile tinnitus of right ear 08/21/2023 Abnormal taste in mouth 10/04/2022 Allergic rhinitis due to animal hair and dander 10/04/2022 Gastroesophageal reflux disease with esophagitis 10/04/2022 Type 2 diabetes mellitus with hyperglycemia, without long-term current use of insulin ([facility]) 10/11/2021 Binge eating disorder 09/20/2015 BMI 50.0-59.9, adult ([facility]) 09/20/2015 CFS (chronic fatigue syndrome) 09/20/2015 Fibromyalgia 09/20/2015 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 Raiza Rocha PGY-4 Safety Deposit Clerk [facility] [1] Past Medical History: [...] 01/08/2025 Morning cholecalciferol (Vitamin D-3) 50 MCG (1999 [place]) tablet Take 2,000 Units by mouth [...] two times daily. glimepiri (more content not included)...[facility] WestHPon [phone] Attestation signed by Won Blanton MD at [...] me. Additional Comments: Won Blanton MD, MPH, [facility], [facility], [facility] Interventional Cardiology Pager Email: [email or web address] H&P reviewed. The patient was examined and there are no changes to the H&P. Will proceed with coronary angiography and right heart catheterization for further evaluation of abnormal stress test and shortness of breath. Consent for blood products obtained. Risks, benefits, and alternatives to procedure discussed with patient in detail who expressed understanding and agreed to proceed.[facility] WestNURSNOTEon 43-50-6203TSHKYRFULY educated pt on d/c instructions. This included: [...] wheeled off of unit with all of belongings.[facility] WestOrders Onlyon 58-36-6444Qefsyb [id number] Canelo Pathak 1965 F Date Provider Department Center 01/08/2025 [facility]GA [facility] Family History Problem Relation Age of Onset Pulmonary embolism Mother Kidney disease Father Heart attack Father Family Status - Relation Status Age at Mother Father Brother AliveNormalUniversity Keenan Private HospitalBasophils Auto (Bld) [#/Vol]Ordered By: Neo Espino on 78-49-1229Xhfwvzikc (Bld) [#/Vol]0.1 10 3/uL0.0-0.1FAdena Health SystemBasophils/100 WBC Auto (Bld)Ordered By: Neo Espino on 21-27-6193Ljrsuwgit/100 WBC (Bld)1.0 %0.2-2.0[facility] TroyEosinophils/100 WBC Auto (Bld)Ordered By: Neo Espino on 42-93-0806Zfdbbjilvlx/100 WBC (Bld)6.1 %0.9-7.0[facility] TroyErythrocyte distribution width Auto (RBC) [Ratio]Ordered By: Neo Espino on 37-51-8523Kbgtvohwzmz distribution width (RBC) [Ratio]12.2 % 11.0-15.0[facility] TroyGlomerular filtration rate (GFR) estimation in non- AmericanOrdered By: Neo Espino on 01-06-2025 GFR/1.73 sq M.predicted among non-blacks MDRD (S/P/Bld) [Vol rate/Area] mL/min/{1.73_m2}>=60 mL/min/1.73m 2FAdena Health SystemHematocrit Auto (Bld) [Volume fraction]Ordered By: Neo Espino on 84-60-2306Fewwkyzsrf (Bld) [Volume fraction]40.9 %36.0-48.0[facility] Hemoglobin [Mass/volume] in BloodOrdered By: Neo Espino on 01-06-2025 Hemoglobin (Bld) [Mass/Vol]13.7 g/dL12.0-16.0[facility] Laboratory - Chemistry and Chemistry - challengeOrdered By: Neo Espino on 54-09-1050Mspeljm [Mass/Vol]9.2 mg/dL8.5-10.1FAdena Health System Chloride [Moles/Vol]104 mmol/Z14-390ZcfwsvspqKettering Health TroyCO2 [Moles/Vol]30.0 mmol/L21.0-32.0[facility] TroyCreatinine [Mass/Vol]0.67 mg/dL0.55-1.02[facility] TroyGFR/1.73 sq M.predicted MDRD (S/P/Bld) [Vol rate/Area]mL/min/{1.73_m2}>=60 mL/min/1.73m 2 [facility] TroyGlucose [Mass/Vol]134 mg/kEQkos90-073Ozwslxvdf Regional Medical CenterPotassium [Moles/Vol]4.4 mmol/L3.5-5.1FOhioHealth Pickerington Methodist Hospitalodium [Moles/Vol]139 mmol/L106-973IemtgqrqgKettering Health TroyUrea nitrogen [Mass/Vol]19.0 mg/dLHigh7.0-18.0[facility] TroyUrea nitrogen/Creatinine [Mass ratio]28.4 mg/mgKettering Health TroyLaboratory - Hematology and Cell countsOrdered By: Neo Espino on 07-68-2153Bhvgryqm granulocytes/100 WBC (Bld)0.3 %0.0-0.5FAdena Health SystemLeukocytes [#/volume] corrected for nucleated erythrocytes in Blood by Automated counOrdered By: Neo Espino on 18-13-5396QSK corrected for nucl RBC Auto (Bld) [#/Vol]7.9 10 3/uL4.0-11.0[facility] TroyLymphocytes Auto (Bld) [#/Vol]Ordered By: Neo Espino on 01-06-2025 Lymphocytes (Bld) [#/Vol]2.3 10 3/uL1.2-3.8[facility] Lymphocytes/100 WBC Auto (Bld)Ordered By: Neo Espino on 01-06-2025 Lymphocytes/100 WBC (Bld)28.9 %20.5-60.0[facility] Auto (RBC) [Entitic mass]Ordered By: Neo Espino on 75-96-8087TER (RBC) [Entitic mass]30.9 pg26.7-34.0[facility] TroyMCHC Auto (RBC) [Mass/Vol]Ordered By: Neo Espino on 04-59-6017VVRE (RBC) [Mass/Vol]33.5 g/dL29.9-35.2FAdena Health SystemMCV Auto (RBC) [Entitic vol] Ordered By: Neo Espino on 78-71-8628YZA (RBC) [Entitic vol]92.3 fL 81.0-99.0[facility] TroyMonocytes Auto (Bld) [#/Vol]Ordered By: Neo Espino on 27-62-3723Zkgmauijy (Bld) [#/Vol]0.5 10 3/uL0.3-0.8 [facility] TroyMonocytes/100 WBC Auto (Bld)Ordered By: Neo Espino on 56-95-3000Neooxygvb/100 WBC (Bld)6.4 %1.7-12.0[facility] TroyNeutrophils Auto (Bld) [#/Vol]Ordered By: Neo Espino on 92-38-5214Weahcvxwzgf (Bld) [#/Vol]4.5 10 3/uL1.4-6.5FAdena Health SystemNeutrophils/100 WBC Auto (Bld)Ordered By: Neo Espino on 01-06-2025 Neutrophils/100 WBC (Bld)57.3 %43.0-75.0[facility] TroyNo Panel InformationOrdered By: Neo Espino on 37-56-5579Bxqorezxwud # (Auto) 0.5 10 3/uL0.0-0.7FAdena Health SystemImmature Granulocyte # (Auto) 0.02 10 3/uL0.00-0.03[facility] TroyPlatelet mean volume Auto (Bld) [Entitic vol]Ordered By: Neo Espino on 73-87-4317Ymyjtluq mean volume (Bld) [Entitic vol]10.5 fL9.5-13.5FAdena Health System Platelets Auto (Bld) [#/Vol]Ordered By: Neo Espino on 78-33-0103Fenirmstj (Bld) [#/Vol]358 10 3/nU313-506GywqkfbhsKettering Health TroyRBC Auto (Bld) [#/Vol]Ordered By: Neo Espino on 51-57-8409EQU (Bld) [#/Vol]4.43 10 6/uL 4.20-5.40[facility]aconess Hospitalerum or plasma anion gap determinationOrdered By: Neo Espino on 76-14-8674Afamk gap [Moles/Vol]9.4 mmol/LFAdena Health SystemHPon 74-40-8691GHPB Cardiology [facility] Subjective Canelo Pathak is a 59 y.o. [...] Asthma Binge eating disorder BMI 50.0-59.9, adult ([facility]) CFS (chronic fatigue syndrome) Cholesteatoma of attic of ear, right Diabetes ([facility]) Elevated blood pressure reading Fibromyalgia Gastroesophageal reflux disease with esophagitis Heraclio's disease Hepatitis Hyperlipidemia Hypertension Hypothyroidism Metabolic syndrome Asymmetric SNHL (sensorineural hearing loss) Osteoarthritis Other alf (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 Palpitation Polyarthralgia Pulsatile tinnitus of right ear Right-sided tinnitus Seasonal allergies Type 2 diabetes mellitus with hyperglycemia, without long-term current use of insulin ([facility]) UTI (urinary tract infection) Vitamin [...] and GERD who was admitted to the [facility] on 08/05/2024 with chest pressure and palpitations. [...] She is not ill-appearing. (more content not included)...[facility] WestOffice Visiton 05-11-4286Jxzeff-up [id number] Canelo Pathak 1965 F Date Provider Department Center 01/05/2025 NEO MORENO CARD [facility] Family History Problem Relation Age of Onset Pulmonary embolism Mother Kidney disease Father Heart attack Father Family Status - Relation Status Age at Mother Father Brother Alive Level of Service:66833 [place] OFFICE/OUTPATIENT ESTABLISHED HIGH [facility] 40 [facility] OhioOrders Onlyon 37-09-1763Xnxnfx [id number] Canelo Pathak 1965 F Date Provider Department Center 01/05/2025 [id number], HISTORICAL CARD [facility] Family History Problem Relation Age of Onset Pulmonary embolism Mother Kidney disease Father Heart attack Father Family Status - Relation Status Age at Mother Father Brother AliveNoalUniWayne HealthCare Main CampusOrders Onlyon 12-29-2024 Orders [id number] Canelo Pathak 1965 F Date Provider Department Center 12/29/2024 [id number], HISTORICAL CARD [facility] Family History Problem Relation Age of Onset Pulmonary embolism Mother Kidney disease Father Heart attack Father Family Status - Relation Status Age at Mother Father Brother AliveNoalUSumma Health Akron CampusBasophils Auto (Bld) [#/Vol]Ordered By: Jeff Jon on 73-70-9767Ezaunluqc (Bld) [#/Vol]0.1 10 3/uL 0.0-0.1FAdena Health SystemBasophils/100 WBC Auto (Bld)Ordered By: Jeff Jon on 04-06-6123Atcoljcur/100 WBC (Bld)0.7 %0.2-2.0[facility] TroyEosinophils/100 WBC Auto (Bld)Ordered By: Jeff Jon on 23-00-5922Lzinmeanfgi/100 WBC (Bld)4.6 %0.9-7.0[facility] Erythrocyte distribution width Auto (RBC) [Ratio]Ordered By: Jeff Jon on 88-05-6258Taxspkzbafn distribution width (RBC) [Ratio]12.0 %11.0-15.0[facility] TroyGlucose mean value [Mass/volume] in Blood Estimated from glycated hemoglobinOrdered By: Jeff Jon on 61-97-5264Utrurvb glucose Estimated from glycated hemoglobin (Bld) [Mass/Vol]186 mg/dLKettering Health TroyHematocrit Auto (Bld) [Volume fraction]Ordered By: Jeff Jon on 07-14-4262Iujumithdo (Bld) [Volume fraction]40.2 %36.0-48.0[facility] TroyHemoglobin A1c percentageOrdered By: Jeff Jon on 11-26-2024 HbA1c (Bld) [Mass fraction]8.1 %High4.5-6.2FAdena Health System Comment on above:ADA RECOMMENDED LIMIT 4.0 - 6.0ADA THERAPEUTIC TARGET < 7.0ACTION SUGGESTED> 7.0Hemoglobin [Mass/volume] in BloodOrdered By: Jeff Jon on 73-12-8750Qndvppplzv (Bld) [Mass/Vol]13.4 g/dL12.0-16.0[facility] TroyLaboratory - Chemistry and Chemistry - challengeOrdered By: Jeff Jon on 48-33-1376Delpnwkmf Ql (U)NegativeNEGATIVEKettering Health TroyGlucose (U) [Mass/Vol]NegativeNEGATIVEKettering Health TroyKetones Ql (U)NegativeNEGMercy Health St. Vincent Medical CenterpH (U)6.0 [pH]5.0-9.0[facility] Deaconess Hospitalpecific gravity (U) [Rel density] >=1.046Kvjiepnr2.005-1.025[facility] TroyUrobilinogen Qn (U) 0.2 {David'U}/dL0.2-1.0[facility] TroyLaboratory - Hematology and Cell countsOrdered By: Jeff Jon on 33-94-2081Cooipiyn granulocytes/100 WBC (Bld)0.6 %High0.0-0.5FAdena Health System Laboratory - Specimen informationOrdered By: Jeff Jon on 11-26-2024 Appearance (U)CLEARCLEARFAdena Health SystemColor (U)LT. YELLOW YELLOWKettering Health TroyLaboratory - UrinalysisOrdered By: Jeff Jon on 50-20-3698Thucsndrh esterase Test strip Ql (U)NegativeNEGATIVE [facility] TroyNitrite Ql (U)NegativeNEGATIVEKettering Health TroyProtein Ql (U)NegativeNEG/TRACEKettering Health TroyLeukocytes [#/volume] corrected for nucleated erythrocytes in Blood by Automated counOrdered By: Jeff Jon on 25-41-9328UIB corrected for nucl RBC Auto (Bld) [#/Vol]7.2 10 3/uL4.0-11.0[facility] Lymphocytes Auto (Bld) [#/Vol]Ordered By: Jeff Jon on 85-84-7689Suiichmdefl (Bld) [#/Vol]1.9 10 3/uL1.2-3.8[facility] TroyLymphocytes/100 WBC Auto (Bld)Ordered By: Jeff Jon on 31-47-3999Fphnfvqumsq/100 WBC (Bld) 25.8 %20.5-60.0Pomerene HospitalH Auto (RBC) [Entitic mass] Ordered By: Jfef Jon on 67-82-6595GNY (RBC) [Entitic mass]31.0 pg26.7-34.0 [facility] TroyMCHC Auto (RBC) [Mass/Vol]Ordered By: Jeff Jon on 63-15-2114PKPA (RBC) [Mass/Vol]33.3 g/dL29.9-35.2FAdena Health SystemMCV Auto (RBC) [Entitic vol]Ordered By: Jeff Jon on 11-26-2024 MCV (RBC) [Entitic vol]93.1 fL81.0-99.0[facility] Monocytes Auto (Bld) [#/Vol]Ordered By: Jeff Jon on 81-12-2777Dgqnwsqgq (Bld) [#/Vol]0.6 10 3/uL0.3-0.8[facility] TroyMonocytes/100 WBC Auto (Bld)Ordered By: Jeff Jon on 12-70-8708Scbwjfbiu/100 WBC (Bld)7.7 % 1.7-12.0[facility] TroyNeutrophils Auto (Bld) [#/Vol]Ordered By: Jeff Jon on 01-82-5960Wemunsrrxxd (Bld) [#/Vol]4.4 10 3/uL1.4-6.5 [facility] TroyNeutrophils/100 WBC Auto (Bld)Ordered By: Jeff Jon on 84-98-3539Czitbjudcix/100 WBC (Bld)60.6 %43.0-75.0[facility] TroyNo Panel InformationOrdered By: Jeff Jon on 11-26-2024 Eosinophils # (Auto)0.3 10 3/uL0.0-0.7FAdena Health SystemImmature Granulocyte # (Auto)0.04 10 3/uLHigh0.00-0.03[facility] Urine Occult BloodNegativeNEGATIVEKettering Health TroyPlatelet mean volume Auto (Bld) [Entitic vol]Ordered By: Jeff Jon on 97-06-1463Ttrkrith mean volume (Bld) [Entitic vol]9.6 fL9.5-13.5FAdena Health System Platelets Auto (Bld) [#/Vol]Ordered By: Jeff Jon on 55-56-0382Vxzjbbkvk (Bld) [#/Vol]306 10 3/hW703-452YlusvbcnmKettering Health TroyRBC Auto (Bld) [#/Vol]Ordered By: Jeff Jon on 18-00-4699WXF (Bld) [#/Vol]4.32 10 6/uL 4.20-5.40[facility] TroyUrine Cultureon 96-25-9081Glaxjvjy identified Cx Nom (U)75,000 colonies/ml mixed bacterial skin contaminants 2 Days PERFORMED BY: [facility] [address] [place] [address] PATHOLOGIST RN [employer] D[employer]Y ASAD DANIELLE M.D.NormalThe Atrium Health Harrisburg Physician GroupComment on above: Performed By: #### CUU #### [facility] [address] [place] [address] USACholesterol in LDL Calc [Mass/Vol]Ordered By: Jeff Jon on 74-77-6454Tftiasahdnt in LDL [Mass/Vol]107.0 mg/dLKettering Health TroyComment on above:<100 mg/dl YWPAHSE394-757 mg/dl NEAR OR ABOVE YYTYBCD493-562 mg/dl BORDERLINE MLJW444-626 mg/dl HIGH>190 mg/dl VERY HIGH Cholesterol in VLDL Calc [Mass/Vol]Ordered By: Jeff Jon on 11-20-2024 Cholesterol in VLDL [Mass/Vol]18.2 mg/dLKettering Health Troy Estimated glomerular filtration rate (GFR) non- AmericanOrdered By: Jeff Jno on 62-48-5470DAI/1.73 sq M.predicted among non-blacks MDRD (S/P/Bld) [Vol rate/Area]mL/min/{1.73_m2}>=60 mL/min/1.73m 2FAdena Health SystemGlobulin Calc (S) [Mass/Vol]Ordered By: Jeff Jon on [id number] (S) [Mass/Vol]3.3 g/dLKettering Health TroyLaboratory - Chemistry and Chemistry - challengeOrdered By: Jeff Jon on [id number] [Mass/Vol]3.4 g/dL3.4-5.0[facility] TroyALP [Catalytic activity/Vol]82 U/P74-869NmqtccibgKettering Health TroyALT [Catalytic activity/Vol]33 U/N48-70OncjasbotKettering Health TroyAST [Catalytic activity/Vol]20 U/M94-61UjaloehkmKettering Health TroyBilirubin [Mass/Vol]0.4 mg/dL0.2-1.0[facility] TroyCalcium [Mass/Vol]9.3 mg/dL 8.5-10.1FAdena Health SystemChloride [Moles/Vol]104 mmol/L98-107 [facility] TroyCholesterol [Mass/Vol]207 mg/dLHigh<=200 [facility] TroyCholesterol in HDL [Mass/Vol]82 mg/aHIzri12-68 [facility] TroyComment on above:> or =60 mg/dl - LOW CARDIOVASCULAR RISK<40 mg/dl - HIGH CARDIOVASCULAR RISKCO2 [Moles/Vol]27.2 mmol/L21.0-32.0[facility] TroyCreatinine [Mass/Vol]0.68 mg/dL 0.55-1.02[facility] TroyFree T4 [Mass/Vol]1.68 ng/dLHigh 0.76-1.46[facility] TroyGFR/1.73 sq M.predicted MDRD (S/P/Bld) [Vol rate/Area]mL/min/{1.73_m2}>=60 mL/min/1.73m 2FAdena Health SystemGlucose [Mass/Vol]163 mg/bJDxfx89-316EtanxtoqvKettering Health Troy Potassium [Moles/Vol]4.5 mmol/L3.5-5.1FAdena Health SystemProtein [Mass/Vol]6.7 g/dL6.4-8.2FOhioHealth Pickerington Methodist Hospitalodium [Moles/Vol]141 mmol/Y080-940IkwwgcaaqKettering Health TroyTriglyceride [Mass/Vol]91 mg/dL <=150[facility] TroyTSH Qn0.712 m[IU]/L0.358-3.740[facility] TroyUrea nitrogen [Mass/Vol]15.0 mg/dL7.0-18.0[facility] TroyUrea nitrogen/Creatinine [Mass ratio]22.1 mg/mgKettering Health TroyLaboratory - Chemistry and Chemistry - challengeOrdered By: Neo Espino on 29-97-4481Eumglcsmv.direct [Mass/Vol]0.1 mg/dL0.0-0.2 [facility] TroyCK [Catalytic activity/Vol]29 U/L26-192 [facility] TroyLaboratory - Hematology and Cell countsOrdered By: Outside Provider on 15-64-8303WIU (Bld) [Velocity]15 mm/h<=30[facility] TroyNo Panel InformationOrdered By: Jeff Jon on 939462-Ameoicn Vitamin D Total34.8 ng/mLKettering Health Troy Comment on above:<20 ng/mL Vit D ywgggrqms10-<30 ng/mL Vit D jicrlsxlauyo33-414 ng/mL Vit D sufficient>100 ng/mL Potential ToxicityFree Triiodothyronine3.27 pg/mL2.18-3.98[facility] TroyNo Panel InformationOrdered By: Outside Provider on 85-84-2872L-Reactive Protein, Quantitative<0.50 mg/dL<=0.50 [facility] Hospitalcl-70 (Scleroderma) Antibody<0.2 AI0.0-0.9 [facility] TroyComment on above:Performed at: [facility] ProductsJ[facility] InstituteJkzxby[address] [place], [place] [id number] Director: Giuseppe Newell PhD, Phone: [phone] nuclear antibody titerOrdered By: Outside Provider on 94-45-8387Aygzjvz Ab (S) [Titer]Negative.[facility] Comment on above:Negative <1:80 Borderline 1:80 Positive >1:80ICAP nomenclature: AC-0For more information about Hep-2 cell patterns useANApatterns.org, the official website for theInternational Consensus on Antinuclear Antibody (KATHY)Patterns (ICAP).Performed at: [facility] ProductsZ[facility] HospitalCqtrxl[address] [place], [id number] Director: Giuseppe Newell PhD, Phone: [phone] or plasma albumin/globulin mass ratioOrdered By: Jeff Jon on 11-20-2024 Albumin/Globulin [Mass ratio]1.0 {ratio}[facility] Hospitalerum or plasma anion gap determinationOrdered By: Jeff Jon on 45-37-5948Auuxb gap [Moles/Vol]14.3 mmol/LFOhioHealth Pickerington Methodist Hospitalerum or plasma rheumatoid factor measurement (units/volume)Ordered By: Outside Provider on 95-76-3516Coqghkutsg factor Qn[IU]/mL<14.0[facility] Comment on above:Performed at: [facility] [address] [place], [place] [id number] Director: Giuseppe Newell PhD, Phone: [phone] or plasma total cholesterol/high density lipoprotein (HDL) cholesterol mass ratOrdered By: Jeff Jon on 60-89-8420Rvhwwapjmsg.total/Cholesterol in HDL [Mass ratio]2.5 {ratio}[facility] TroyComment on above:3.3 - 4.4 LOW RISK4.4 - 7.1 AVERAGE RISK7.1 - 11.0 MODERATE RISK>11.0 HIGH RISKLaboratory - Chemistry and Chemistry - challengeon 88-85-4764Gswy T4 [Mass/Vol]2.01 ng/dLHigh0.76-1.46 [facility] TroyTSH Qn0.260 m[IU]/LLow0.358-3.740[facility] TroyNo Panel Informationon 32-63-9346Rfys Triiodothyronine 2.19 pg/mL2.18-3.98[facility] TroyOffice Visiton 08-25-2024 Follow-up [id number] Canelo Pathak 1965 F Date Provider Department Center 08/25/2024 NEO MORENO NUBIA [facility] Family History Problem Relation Age of Onset Pulmonary embolism Mother Kidney disease Father Heart attack Father Family Status - Relation Status Age at Mother Father Brother Alive Level of Service:02200 MT OFFICE/OUTPATIENT NEW MODERATE MDM 45 MINUTESNormal [facility]Bas[facility] Auto (Bld) [#/Vol]on 08-06-2024 Basophils (Bld) [#/Vol]Automated basophil count0.0-0.1FAdena Health SystemBasophils/100 WBC Auto (Bld)on 78-31-1146Fjbawhufm/100 WBC (Bld)Automated basophil %0.2-2.0[facility] TroyCholesterol in LDL Calc [Mass/Vol]on 56-98-4781Rhngyaeuyhm in LDL [Mass/Vol]Cholesterol in LDL [Mass/volume] in Serum or Plasma by [facility] Comment on above:<100 mg/dl TFSWIVI820-364 mg/dl NEAR OR ABOVE OFDRAHY370-065 mg/dl BORDERLINE KJRH724-961 mg/dl HIGH>190 mg/dl VERY HIGHCholesterol in VLDL Calc [Mass/Vol]on 05-17-9910Nnutvupeeaq in VLDL [Mass/Vol]Cholesterol in VLDL [Mass/volume] in Serum or Plasma by calculationKettering Health Troy Eosinophils/100 WBC Auto (Bld)on 26-64-6913Wkguhtmihny/100 WBC (Bld)Automated eosinophil %0.9-7.0[facility] TroyErythrocyte distribution width Auto (RBC) [Ratio]on 00-43-3699Qbzdgzveznd distribution width (RBC) [Ratio]Erythrocyte distribution width [Ratio] by Automated count11.0-15.0 [facility] TroyEstimated glomerular filtration rate (GFR) non- Americanon 80-80-7253OLT/1.73 sq M.predicted among non-blacks MDRD (S/P/Bld) [Vol rate/Area]Estimated glomerular filtration rate (GFR) non->=60 mL/min/1.73m 2FAdena Health SystemGlobulin Calc (S) [Mass/Vol]on 25-27-0385Ctjtbaio (S) [Mass/Vol]Serum globulin measurement by calculation (mass/volume)[facility] TroyGlucose mean value [Mass/volume] in Blood Estimated from glycated hemoglobinon 65-41-9613Pqtdemv glucose Estimated from glycated hemoglobin (Bld) [Mass/Vol]Glucose mean value [Mass/volume] in Blood Estimated from glycated hemoglobinKettering Health TroyHematocrit Auto (Bld) [Volume fraction]on 55-17-7662Jgnefmnnqs (Bld) [Volume fraction]Hematocrit [Volume Fraction] of Blood by Automated count 36.0-48.0[facility] TroyHemoglobin A1c percentageon 08-06-2024 HbA1c (Bld) [Mass fraction]Hemoglobin A1c percentageHigh4.5-6.2FAdena Health SystemComment on above:ADA RECOMMENDED LIMIT 4.0 - 6.0ADA THERAPEUTIC TARGET < 7.0ACTION SUGGESTED> 7.0Hemoglobin [Mass/volume] in Bloodon 65-23-9298Komxmkkduo (Bld) [Mass/Vol]Hemoglobin [Mass/volume] in Blood12.0-16.0 [facility] TroyLaboratory - Chemistry and Chemistry - challengeon 14-66-5242Rropsfo [Mass/Vol]4.1 g/dL3.4-5.0[facility] TroyALP [Catalytic activity/Vol]91 U/Q47-131RgbhphfekKettering Health TroyALT [Catalytic activity/Vol]24 U/V27-66EtsnnyxsfKettering Health Troy AST [Catalytic activity/Vol]23 U/B99-60DsxgvymirKettering Health Troy Bilirubin [Mass/Vol]0.5 mg/dL0.2-1.0[facility] TroyCalcium [Mass/Vol]10.1 mg/dL8.5-10.1FAdena Health SystemChloride [Moles/Vol]100 mmol/M45-748FwggdoevfKettering Health TroyCholesterol [Mass/Vol]258 mg/dLHigh<=200[facility] TroyCholesterol in HDL [Mass/Vol]86 mg/tWLgyt71-21BbrdokkbdKettering Health TroyComment on above:> or =60 mg/dl - LOW CARDIOVASCULAR RISK<40 mg/dl - HIGH CARDIOVASCULAR RISKCO2 [Moles/Vol]27.5 mmol/L21.0-32.0[facility] TroyCreatinine [Mass/Vol]0.91 mg/dL0.55-1.02[facility] TroyGFR/1.73 sq M.predicted MDRD (S/P/Bld) [Vol rate/Area]mL/min/{1.73_m2}>=60 mL/min/1.73m 2 [facility] TroyGlucose [Mass/Vol]125 mg/iYHhwo33-005GyhvbmbvcKettering Health TroyMagnesium [Mass/Vol]1.9 mg/dL1.8-2.4FAdena Health SystemPotassium [Moles/Vol]4.0 mmol/L3.5-5.1FAdena Health SystemProtein [Mass/Vol]7.7 g/dL6.4-8.2FOhioHealth Pickerington Methodist Hospitalodium [Moles/Vol]140 mmol/R318-895PyctgsurbKettering Health TroyTriglyceride [Mass/Vol]158 mg/dLHigh<=150[facility] TroyTSH Qn50.079 m[IU]/LHigh0.358-3.740[facility] TroyUrea nitrogen [Mass/Vol] 18.0 mg/dL7.0-18.0[facility] TroyUrea nitrogen/Creatinine [Mass ratio]19.8 mg/mgKettering Health TroyLaboratory - Hematology and Cell countson 70-76-9196Yxopqllb granulocytes/100 WBC (Bld)0.5 %0.0-0.5 [facility] TroyLeukocytes [#/volume] corrected for nucleated erythrocytes in Blood by Automated counon 53-78-9970MMF corrected for nucl RBC Auto (Bld) [#/Vol]Leukocytes [#/volume] corrected for nucleated erythrocytes in Blood by Automated coun4.0-11.0[facility] TroyLymphocytes Auto (Bld) [#/Vol]on 73-56-7385Gizjxzzbsaa (Bld) [#/Vol]Lymphocytes [#/volume] in Blood by Automated count1.2-3.8[facility] TroyLymphocytes/100 WBC Auto (Bld)on 98-41-6675Mvrlltoyapg/100 WBC (Bld)Lymphocytes/100 leukocytes in Blood by Automated count20.5-60.0[facility] HospitalH Auto (RBC) [Entitic mass]on 55-22-3788CCT (RBC) [Entitic mass]MCH [Entitic mass] by Automated count26.7-34.0[facility] TroyMCHC Auto (RBC) [Mass/Vol]on 73-13-6776ABUW (RBC) [Mass/Vol]MCHC [Mass/volume] by Automated count29.9-35.2FAdena Health SystemMCV Auto (RBC) [Entitic vol]on 48-21-8382XIB (RBC) [Entitic vol]MCV [Entitic volume] by Automated count 81.0-99.0[facility] TroyMonocytes Auto (Bld) [#/Vol]on 21-11-4754Ljnhbatio (Bld) [#/Vol]Automated blood monocyte count0.3-0.8[facility] TroyMonocytes/100 WBC Auto (Bld)on 73-35-8061Vguwzjkfd/100 WBC (Bld)Automated monocyte %1.7-12.0[facility] Neutrophils Auto (Bld) [#/Vol]on 14-69-6567Ufcofesfhiq (Bld) [#/Vol]Neutrophils [#/volume] in Blood by Automated count1.4-6.5FAdena Health System Neutrophils/100 WBC Auto (Bld)on 47-80-8620Kqbavpynkws/100 WBC (Bld)Automated neutrophil %43.0-75.0[facility] TroyNo Panel Informationon 58-25-5316Jnvyiurdtcg # (Auto)0.4 10 3/uL0.0-0.7FAdena Health SystemImmature Granulocyte # (Auto)0.04 10 3/uLHigh0.00-0.03[facility] TroyTroponin I High Sensitivity6.6 pg/mL4.0-51.3FAdena Health SystemComment on above:CUT-OFF POINTS HAVE BEEN ESTABLISHED BASED ON THE FOURTHUNIVERSAL DEFINITION OF MYOCARDIAL INFARCTION. THE UPPERREFERENCE LIMIT (URL) OF TROPONIN, DEFINED THE 99THPERCENTILE OF cTnI DISTRIBUTION IN A REFERENCE POPULATION,HAS BEEN CONFIRMED THE DECISION THRESHOLD FOR MIDIAGNOSIS.99TH PERCENTILE = 51.4 PG/MLNOTE: HIGH-SENSITIVITY TROPONIN ASSAY IS NOT INTENDED TO BEUSED IN ISOLATION BUT SHOULD BE INTERPRETED IN CONJUNCTIONWITH OTHER DIAGNOSTIC AND CLINICAL INFORMATION.Platelet mean volume Auto (Bld) [Entitic vol]on 81-01-1432Osnrwtiz mean volume (Bld) [Entitic vol] Platelet mean volume [Entitic volume] in Blood by Automated count9.5-13.5 [facility] TroyPlatelets Auto (Bld) [#/Vol]on 08-06-2024 Platelets (Bld) [#/Vol]Platelets [#/volume] in Blood by Automated keonh245-278 [facility] TroyRBC Auto (Bld) [#/Vol]on 03-30-2933MSS (Bld) [#/Vol]Erythrocytes [#/volume] in Blood by Automated count4.20-5.40[facility] Hospitalerum or plasma albumin/globulin mass ratioon 08-06-2024 Albumin/Globulin [Mass ratio]Serum or plasma albumin/globulin mass ratio [facility] Hospitalerum or plasma anion gap determinationon 91-73-2701Mftiy gap [Moles/Vol]Serum or plasma anion gap determinationProtestant Deaconess Hospitalerum or plasma total cholesterol/high density lipoprotein (HDL) cholesterol mass constantin 57-01-9889Ayctovocohb.total/Cholesterol in HDL [Mass ratio]Serum or plasma total cholesterol/high density lipoprotein (HDL) cholesterol mass ratFirelands Regional Medical CenterComment on above:3.3 - 4.4 LOW RISK4.4 - 7.1 AVERAGE RISK7.1 - 11.0 MODERATE RISK>11.0 HIGH RISK Basophils Auto (Bld) [#/Vol]on 60-75-3008Rehcibpgw (Bld) [#/Vol]Automated basophil count0.0-0.1FAdena Health SystemBasophils/100 WBC Auto (Bld)on 67-33-2159Cuflumjvc/100 WBC (Bld)Automated basophil %0.2-2.0[facility] TroyEosinophils/100 WBC Auto (Bld)on 08-05-2024 Eosinophils/100 WBC (Bld)Automated eosinophil %0.9-7.0[facility] TroyErythrocyte distribution width Auto (RBC) [Ratio]on 98-12-9283Cqqhnmpxgqv distribution width (RBC) [Ratio]Erythrocyte distribution width [Ratio] by Automated count11.0-15.0[facility] TroyEstimated glomerular filtration rate (GFR) non- Americanon 53-07-7586GNF/1.73 sq M.predicted among non-blacks MDRD (S/P/Bld) [Vol rate/Area]Estimated glomerular filtration rate (GFR) non->=60 mL/min/1.73m 2FAdena Health SystemGlobulin Calc (S) [Mass/Vol]on 82-76-9712Razrebqp (S) [Mass/Vol]Serum globulin measurement by calculation (mass/volume)[facility] TroyHematocrit Auto (Bld) [Volume fraction]on 17-18-0156Imyspliaud (Bld) [Volume fraction]Hematocrit [Volume Fraction] of Blood by Automated count 36.0-48.0[facility] TroyHemoglobin [Mass/volume] in Bloodon 20-14-0051Nmtwqgbhjj (Bld) [Mass/Vol]Hemoglobin [Mass/volume] in Blood12.0-16.0 [facility] TroyINR in Platelet poor plasma by Coagulation assayon 86-86-7682XFY Coag (PPP) [Relative time]INR in Platelet poor plasma by Coagulation assayKettering Health TroyComment on above:DESIRED INR:2.0-3.0 CONDITIONS NOT LISTED BELOW2.5-3.5 FOR PROSTHETIC HEART VALVE REPLACEMENT2.5-3.5 RECURRENT THROMBOSISLaboratory - Chemistry and Chemistry - challengeon 22-44-9967Hdjvqys [Mass/Vol]3.7 g/dL3.4-5.0[facility] TroyALP [Catalytic activity/Vol]91 U/Q03-476HnhyeobcwKettering Health TroyALT [Catalytic activity/Vol]20 U/B06-88NmxyitwwyKettering Health Troy AST [Catalytic activity/Vol]20 U/H87-66IcnkwohagKettering Health Troy Bilirubin [Mass/Vol]0.4 mg/dL0.2-1.0[facility] TroyCalcium [Mass/Vol]10.0 mg/dL8.5-10.1FAdena Health SystemChloride [Moles/Vol]102 mmol/X05-453YjkjihywfKettering Health TroyCO2 [Moles/Vol]28.1 mmol/L21.0-32.0[facility] TroyCreatinine [Mass/Vol]0.81 mg/dL 0.55-1.02[facility] TroyGFR/1.73 sq M.predicted MDRD (S/P/Bld) [Vol rate/Area]mL/min/{1.73_m2}>=60 mL/min/1.73m 2FAdena Health SystemGlucose [Mass/Vol]146 mg/kHByzt51-147FqawqrcjxKettering Health Troy Magnesium [Mass/Vol]1.7 mg/dLLow1.8-2.4FAdena Health System Natriuretic peptide B (Bld) [Mass/Vol]56.0 pg/mL<=900.0[facility] TroyPotassium [Moles/Vol]4.7 mmol/L3.5-5.1FAdena Health SystemProtein [Mass/Vol]7.4 g/dL6.4-8.2FOhioHealth Pickerington Methodist Hospitalodium [Moles/Vol]138 mmol/V283-046TktsjfctfKettering Health TroyUrea nitrogen [Mass/Vol]21.0 mg/dLHigh7.0-18.0[facility] TroyUrea nitrogen/Creatinine [Mass ratio]25.9 mg/mgKettering Health Troy Laboratory - Hematology and Cell countson 08-88-3521Bmsijepl granulocytes/100 WBC (Bld)0.7 %High0.0-0.5FAdena Health SystemLaboratory - Microbiology and Antimicrobial susceptibilityon 52-13-1583QTBS-CoV-2 (COVID-19) RNA ARIADNA+probe Ql (Unsp spec)NegativeNEGATIVEKettering Health Troy Comment on above:This test has not been FDA cleared or approved, but has beenauthorized [...] tests for detectionand/or diagnosis of Covid-19 under s ection 564(b)(1) of theAct, 21 U.S.C. 360bbb-3(b)(1), unless the declaration isterminated or authorization is revoked sooner.Leukocytes [#/volume] corrected for nucleated erythrocytes in Blood by Automated counon 25-14-6731HQA corrected for nucl RBC Auto (Bld) [#/Vol]Leukocytes [#/volume] corrected for nucleated erythrocytes in Blood by Automated coun4.0-11.0[facility] Lymphocytes Auto (Bld) [#/Vol]on 15-55-2170Qxrinzftfbx (Bld) [#/Vol]Lymphocytes [#/volume] in Blood by Automated count1.2-3.8[facility] Lymphocytes/100 WBC Auto (Bld)on 57-65-5420Tilyfacdbse/100 WBC (Bld) Lymphocytes/100 leukocytes in Blood by Automated count20.5-60.0[facility] Auto (RBC) [Entitic mass]on 74-62-2608CHD (RBC) [Entitic mass]MCH [Entitic mass] by Automated count26.7-34.0[facility] Auto (RBC) [Mass/Vol]on 78-29-3828JFOD (RBC) [Mass/Vol]MCHC [Mass/volume] by Automated count29.9-35.2FAdena Health SystemMCV Auto (RBC) [Entitic vol]on 57-17-2191MXD (RBC) [Entitic vol]MCV [Entitic volume] by Automated count81.0-99.0[facility] TroyMonocytes Auto (Bld) [#/Vol]on 58-98-3279Jifhofzcu (Bld) [#/Vol]Automated blood monocyte count0.3-0.8 [facility] TroyMonocytes/100 WBC Auto (Bld)on 08-05-2024 Monocytes/100 WBC (Bld)Automated monocyte %1.7-12.0[facility] TroyNeutrophils Auto (Bld) [#/Vol]on 32-03-7318Fzrflnnylze (Bld) [#/Vol] Neutrophils [#/volume] in Blood by Automated count1.4-6.5FAdena Health SystemNeutrophils/100 WBC Auto (Bld)on 00-06-7681Aseozghuhww/100 WBC (Bld)Automated neutrophil %43.0-75.0[facility] TroyNo Panel Informationon 69-93-2503Pvpnxkmt I High Sensitivity7.6 pg/mL4.0-51.3FAdena Health SystemComment on above:CUT-OFF POINTS HAVE BEEN ESTABLISHED BASED ON THE FOURTHUNIVERSAL DEFINITION OF MYOCARDIAL INFARCTION. THE UPPERREFERENCE LIMIT (URL) OF TROPONIN, DEFINED THE 99THPERCENTILE OF cTnI DISTRIBUTION IN A REFERENCE POPULATION,HAS BEEN CONFIRMED THE DECISION THRESHOLD FOR MIDIAGNOSIS.99TH PERCENTILE = 51.4 PG/MLNOTE: HIGH-SENSITIVITY TROPONIN ASSAY IS NOT INTENDED TO BEUSED IN ISOLATION BUT SHOULD BE INTERPRETED IN CONJUNCTIONWITH OTHER DIAGNOSTIC AND CLINICAL INFORMATION.Eosinophils # (Auto)0.5 10 3/uL0.0-0.7FAdena Health SystemImmature Granulocyte # (Auto)0.07 10 3/uLHigh0.00-0.03[facility] TroyPlatelet mean volume Auto (Bld) [Entitic vol]on 97-07-7255Sahbxvig mean volume (Bld) [Entitic vol]Platelet mean volume [Entitic volume] in Blood by Automated count9.5-13.5 [facility] TroyPlatelets Auto (Bld) [#/Vol]on 08-05-2024 Platelets (Bld) [#/Vol]Platelets [#/volume] in Blood by Automated qersc109-077 [facility] TroyProthrombin time (PT)on 83-13-7896YO Coag (PPP) [Time]Prothrombin time (PT)9.0-11.6FAdena Health SystemRBC Auto (Bld) [#/Vol]on 37-98-7913GED (Bld) [#/Vol]Erythrocytes [#/volume] in Blood by Automated count4.20-5.40[facility] Hospitalerum or plasma albumin/globulin mass ratioon 10-69-4436Abfkbvi/Globulin [Mass ratio]Serum or plasma albumin/globulin mass ratioProtestant Deaconess Hospitalerum or plasma anion gap determinationon 00-22-2422Qcoma gap [Moles/Vol]Serum or plasma anion gap determinationKettering Health TroyBlood Urea Nitrogenon 91-11-4402Cibc nitrogen [Mass/Vol]20 mg/dLNormal7-25[facility] Physician GroupComment on above:Order Comment: STAT FOR CTPerformed By: #### BUN, CREAT #### [place] [address] USACT abdomen pelvis w conon 09-82-3448JD abdomen pelvis w [facility] [address] [place] [address] CT Scan Report Signed Patient: Canelo Pathak MR#: [id number] 4 : 1965 Acct:[id number] Age/Sex: 58 / F ADM Date: 07/30/24 Loc: CT [facility]: [facility]: Carol Alegria DO Copies to: [...] inflammatory or bowel obstruction Impression dictated by: aCmeron Worthy M.D.07/30/2024 1:18 PM Dictation Location: [place] [address] Transcribed By: [facility] 07/30/24 1318 Dictated By: Cameron Worthy MD 07/30/24 1314 Signed By: 07/30/24 1318NormPhysicians Regional Medical Center [facility] Collier Boulevard Physician GroupCreatinineon 07-30-2024 Creatinine [Mass/Vol]0.85 mg/dLNormal0.60-1.20[facility] Comment on above:Order Comment: STAT FOR CTPerformed By: #### BUN, CREAT #### [facility] [address] [place] [address] USAGFR/1.73 sq M.predicted MDRD (S/P/Bld) [Vol rate/Area] mL/min/{1.73_m2}NormalThe [facility]rium Health Harrisburg Physician GroupComment on above:Order Comment: STAT FOR CTResult Comment: PERFORMED BY: [place] [address] PATHOLOGIST RN [employer] JERRI ROMERO M.D.Performed By: #### BUN, CREAT #### [facility] [address] [place] [address] USACreatinine [Mass/volume] in Serum or PlasmaOrdered By: Carol Alegria on 52-88-5815Vnpyergwpz [Mass/Vol]Creatinine [Mass/volume] in Serum or Plasma0.60-1.20[facility] TroyNo Panel InformationOrdered By: Carol Alegria on 53-74-1881Rzdbggxin GFR (CKD-EPI)> 60.0 mL/MinKettering Health TroyPharmacy Creatinine Clearance (ChemN/AFAdena Health SystemUrea nitrogen [Mass/volume] in Serum or PlasmaOrdered By: Carol Alegria on 86-86-4092Hzfv nitrogen [Mass/Vol]Urea nitrogen [Mass/volume] in Serum or Plasma7-[facility] TroyBasophils Auto (Bld) [#/Vol]on 33-90-7622Ykgrtpznp (Bld) [#/Vol]0.1 10 3/uL0.0-0.1FAdena Health SystemBasophils (Bld) [#/Vol]Automated basophil count0.0-0.1FAdena Health SystemBaphils/100 WBC Auto (Bld)on 24-17-8561Xepoavjki/100 WBC (Bld)0.9 %0.2-2.0[facility] TroyBasophils/100 WBC (Bld) Automated basophil %0.2-2.0[facility] TroyCholesterol in LDL Calc [Mass/Vol]on 16-66-1813Bqtdefhxbtr in LDL [Mass/Vol]87.0 mg/dLKettering Health TroyComment on above:<100 mg/dl XGQZMVX080-386 mg/dl NEAR OR ABOVE UVRVWRR366-496 mg/dl BORDERLINE HZEM994-317 mg/dl HIGH>190 mg/dl VERY HIGH Cholesterol in LDL [Mass/Vol]Cholesterol in LDL [Mass/volume] in Serum or Plasma by calculationKettering Health TroyComment on above:<100 mg/dl EVFYLLE411-310 mg/dl NEAR OR ABOVE GHBOKTT400-733 mg/dl BORDERLINE TPWY463-253 mg/dl HIGH>190 mg/dl VERY HIGHCholesterol in VLDL Calc [Mass/Vol]on 03-20-2024 Cholesterol in VLDL [Mass/Vol]15.0 mg/dLKettering Health Troy Cholesterol in VLDL [Mass/Vol]Cholesterol in VLDL [Mass/volume] in Serum or Plasma by calculationKettering Health TroyEosinophils/100 WBC Auto (Bld)on 05-33-0118Mahrqbmqttn/100 WBC (Bld)3.3 %0.9-7.0[facility] TroyEosinophils/100 WBC (Bld)Automated eosinophil %0.9-7.0[facility] TroyErythrocyte distribution width Auto (RBC) [Ratio]on 44-58-9506Unccescmxxr distribution width (RBC) [Ratio]12.4 %11.0-15.0[facility] TroyErythrocyte distribution width (RBC) [Ratio]Erythrocyte distribution width [Ratio] by Automated count11.0-15.0[facility] TroyEstimated glomerular filtration rate (GFR) non- Americanon 92-79-7479BKO/1.73 sq M.predicted among non-blacks MDRD (S/P/Bld) [Vol rate/Area]mL/min/{1.73_m2}>=60 mL/min/1.73m 2FAdena Health System GFR/1.73 sq M.predicted among non-blacks MDRD (S/P/Bld) [Vol rate/Area]Estimated glomerular filtration rate (GFR) non->=60 mL/min/1.73m 2 [facility] TroyGlobulin Calc (S) [Mass/Vol]on 03-20-2024 Globulin (S) [Mass/Vol]3.3 g/dLKettering Health TroyGlobulin (S) [Mass/Vol]Serum globulin measurement by calculation (mass/volume)[facility] TroyGlucose mean value [Mass/volume] in Blood Estimated from glycated hemoglobinon 41-43-8464Hhgyplr glucose Estimated from glycated hemoglobin (Bld) [Mass/Vol]140 mg/dLKettering Health TroyAverage glucose Estimated from glycated hemoglobin (Bld) [Mass/Vol]Glucose mean value [Mass/volume] in Blood Estimated from glycated hemoglobinKettering Health TroyHematocrit Auto (Bld) [Volume fraction]on 93-63-2105Dvmgjceypi (Bld) [Volume fraction]39.9 %36.0-48.0[facility] Hematocrit (Bld) [Volume fraction]Hematocrit [Volume Fraction] of Blood by Automated count36.0-48.0[facility] TroyHemoglobin [Mass/volume] in Bloodon 33-63-9605Bdmrtvygnd (Bld) [Mass/Vol]13.2 g/dL12.0-16.0 [facility] TroyHemoglobin (Bld) [Mass/Vol]Hemoglobin [Mass/volume] in Blood12.0-16.0[facility] TroyLaboratory - Chemistry and Chemistry - challengeon 86-51-7349Sauvqtn [Mass/Vol]3.3 g/dLLow 3.4-5.0[facility] TroyALP [Catalytic activity/Vol]72 U/L46-116 [facility] TroyALT [Catalytic activity/Vol]22 U/L14-59 [facility] TroyAST [Catalytic activity/Vol]11 U/OKrk25-06 [facility] TroyBilirubin [Mass/Vol]0.4 mg/dL0.2-1.0[facility] TroyCalcium [Mass/Vol]9.0 mg/dL8.5-10.1FAdena Health SystemChloride [Moles/Vol]105 mmol/A19-873SngiltamkKettering Health TroyCholesterol [Mass/Vol]174 mg/dL<=200[facility] Cholesterol in HDL [Mass/Vol]72 mg/aUKytg93-03EivthylkdKettering Health Troy Comment on above:> or =60 mg/dl - LOW CARDIOVASCULAR RISK<40 mg/dl - HIGH CARDIOVASCULAR RISKCO2 [Moles/Vol]28.6 mmol/L21.0-32.0[facility] TroyCreatinine [Mass/Vol]0.89 mg/dL0.55-1.02[facility] Free T4 [Mass/Vol]1.53 ng/dLHigh0.76-1.46[facility] GFR/1.73 sq M.predicted MDRD (S/P/Bld) [Vol rate/Area]mL/min/{1.73_m2}>=60 mL/min/1.73m 2FAdena Health SystemGlucose [Mass/Vol]119 mg/dLHigh 74-106[facility] TroyPotassium [Moles/Vol]4.1 mmol/L3.5-5.1 [facility] TroyProtein [Mass/Vol]6.6 g/dL6.4-8.2FOhioHealth Pickerington Methodist Hospitalodium [Moles/Vol]143 mmol/L541-228BefzsiefkKettering Health TroyTriglyceride [Mass/Vol]75 mg/dL<=150[facility] TroyTSH Qn1.000 m[IU]/L0.358-3.740[facility] TroyUrea nitrogen [Mass/Vol]18.0 mg/dL7.0-18.0[facility] TroyUrea nitrogen/Creatinine [Mass ratio]20.2 mg/mgKettering Health Troy Laboratory - Hematology and Cell countson [id number] (Bld) [Mass fraction] 6.5 %High4.5-6.2FAdena Health SystemComment on above:ADA RECOMMENDED LIMIT 4.0 - 6.0ADA THERAPEUTIC TARGET < 7.0ACTION SUGGESTED> 7.0 Immature granulocytes/100 WBC (Bld)0.2 %0.0-0.5FAdena Health System Leukocytes [#/volume] corrected for nucleated erythrocytes in Blood by Automated counon [id number] corrected for nucl RBC Auto (Bld) [#/Vol]8.5 10 3/uL 4.0-11.0[facility] TroyWBC corrected for nucl RBC Auto (Bld) [#/Vol]Leukocytes [#/volume] corrected for nucleated erythrocytes in Blood by Automated coun4.0-11.0[facility] TroyLymphocytes Auto (Bld) [#/Vol]on 69-36-3072Wuypphbmfgc (Bld) [#/Vol]2.3 10 3/uL1.2-3.8[facility] TroyLymphocytes (Bld) [#/Vol]Lymphocytes [#/volume] in Blood by Automated count1.2-3.8[facility] TroyLymphocytes/100 WBC Auto (Bld)on 06-27-2152Ojsaspofcjv/100 WBC (Bld)26.5 %20.5-60.0[facility] TroyLymphocytes/100 WBC (Bld)Lymphocytes/100 leukocytes in Blood by Automated count20.5-60.0[facility] Auto (RBC) [Entitic mass]on 19-29-6280YBQ (RBC) [Entitic mass]31.0 pg26.7-34.0[facility] (RBC) [Entitic mass]MCH [Entitic mass] by Automated count26.7-34.0[facility] HospitalHC Auto (RBC) [Mass/Vol]on 45-46-6439JPVE (RBC) [Mass/Vol]33.1 g/dL29.9-35.2FSt. Anthony's HospitalHC (RBC) [Mass/Vol]MCHC [Mass/volume] by Automated count29.9-35.2 [facility] HospitalV Auto (RBC) [Entitic vol]on 06-25-9197MHY (RBC) [Entitic vol]93.7 fL81.0-99.0[facility] HospitalV (RBC) [Entitic vol]MCV [Entitic volume] by Automated count81.0-99.0[facility] TroyMonocytes Auto (Bld) [#/Vol]on 60-83-5199Ozsqcqytm (Bld) [#/Vol] 0.6 10 3/uL0.3-0.8[facility] TroyMonocytes (Bld) [#/Vol] Automated blood monocyte count0.3-0.8[facility] Monocytes/100 WBC Auto (Bld)on 91-21-0659Vyqqvthsu/100 WBC (Bld)6.4 %1.7-12.0 [facility] TroyMonocytes/100 WBC (Bld)Automated monocyte % 1.7-12.0[facility] TroyNeutrophils Auto (Bld) [#/Vol]on 27-80-0644Ytgvfwepbdz (Bld) [#/Vol]5.4 10 3/uL1.4-6.5FAdena Health SystemNeutrophils (Bld) [#/Vol]Neutrophils [#/volume] in Blood by Automated count1.4-6.5FAdena Health SystemNeutrophils/100 WBC Auto (Bld)on 19-94-9614Wmgnntbypqc/100 WBC (Bld)62.7 %43.0-75.0[facility] TroyNeutrophils/100 WBC (Bld)Automated neutrophil %43.0-75.0[facility] TroyNo Panel Informationon 057555-Qntmpqr Vitamin D Total36.0 ng/mLKettering Health TroyComment on above:<20 ng/mL Vit D stmpokeor88-<30 ng/mL Vit D zavhrfxigdlf04-647 ng/mL Vit D sufficient>100 ng/mL Potential ToxicityEosinophils # (Auto)0.3 10 3/uL0.0-0.7FAdena Health SystemImmature Granulocyte # (Auto)0.02 10 3/uL0.00-0.03[facility] TroyTotal Vbpyvbexubleekij94 ng/cU13-669UfkuvhjmoKettering Health TroyComment on above:Performed at: [employer] [facility] [address] [id number] Director: Giuseppe Newell PhD, Phone: [phone] Platelet mean volume Auto (Bld) [Entitic vol]on 21-10-2315Xmjhspvl mean volume (Bld) [Entitic vol]9.5 fL9.5-13.5FAdena Health SystemPlatelet mean volume (Bld) [Entitic vol]Platelet mean volume [Entitic volume] in Blood by Automated count9.5-13.5FAdena Health SystemPlatelets Auto (Bld) [#/Vol]on 11-49-4174Zajrxjvbp (Bld) [#/Vol]364 10 3/nM734-003AdcmzspeuKettering Health TroyPlatelets (Bld) [#/Vol]Platelets [#/volume] in Blood by Automated -254XowohousjKettering Health TroyRBC Auto (Bld) [#/Vol]on 03-20-2024 RBC (Bld) [#/Vol]4.26 10 6/uL4.20-5.40[facility] TroyRBC (Bld) [#/Vol]Erythrocytes [#/volume] in Blood by Automated count4.20-5.40[facility]acon[facility] Hospitalerum or plasma albumin/globulin mass ratioon 03-20-2024 Albumin/Globulin [Mass ratio]1.0 {ratio}[facility] Albumin/Globulin [Mass ratio]Serum or plasma albumin/globulin mass ratio [facility]acon[facility] Hospitalerum or plasma anion gap determinationon 89-11-9086Rfvkc gap [Moles/Vol]13.5 mmol/LFAdena Health SystemAnion gap [Moles/Vol]Serum or plasma anion gap determinationProtestant Deaconess Hospitalerum or plasma total cholesterol/high density lipoprotein (HDL) cholesterol mass constantin 12-96-5029Dwikbelyszx.total/Cholesterol in HDL [Mass ratio]2.4 {ratio}[facility] TroyComment on above:3.3 - 4.4 LOW RISK4.4 - 7.1 AVERAGE RISK7.1 - 11.0 MODERATE RISK>11.0 HIGH RISK Cholesterol.total/Cholesterol in HDL [Mass ratio]Serum or plasma total cholesterol/high density lipoprotein (HDL) cholesterol mass [facility]. [facility] HospitalComment on above:3.3 - 4.4 LOW RISK4.4 - 7.1 AVERAGE RISK7.1 - 11.0 MODERATE RISK>11.0 HIGH RISKGastroenterology Office/Clinic Noteon 75-31-9941Rexwnrxqwoancwtv Office/Clinic NoteChief Complaint Followup for abd pain, chest pain, vomiting, diarrhea History of Present Illness Patient presents to GI clinic for a followup for abdominal pain radiating to chest pain, vomiting and diarrhea. KATIANA was 06/26/22 Continues to have persistent acid reflux despite Nexium 40 mg daily. Has anywhere from 5-10 stools per day type on Calhoun stool scale form, urgent and explosive to [...] water, # 120 tabs, 0 Refill(s), Pharmacy: [facility]/pharmacy #[id number] esomeprazole, 1 caps, Oral, BID, # 180 caps, 0 Refill(s), Pharmacy: [facility]/pharmacy #[id number] ondansetron, 1 tabs, Oral, q8hr, PRN, # 60 tabs, 0 Refill(s), Pharmacy: [facility]/pharmacy #[id number] polyethylene glycol 3350 with electrolytes, See Instructions, for colonoscopy prep, # 4,000 mL, 0 Refill(s), Pharmacy: [facility]/pharmacy #[id number] 1. 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 Time listed does not include time spent on separately billable services. Problem List/Past Medical History Ongoing Asthma Endometriosis Fibromyalg (more content not included)...[facility]XR [facility] adulton 52-92-1650IL hips BI 4V [facility] [address] [place] [id number] XRay Report Signed Patient: Canelo Pathak MR#: [id number] 4 : 1965 Acct:[id number] Age/Sex: 58 / F ADM Date: 12/05/23 Loc: XD Room: Type: [facility] CLI Attending Dr: Logan Brown MD Copies to: [...] Omid Seals M.D.12/05/2023 5:09 PM Dictation Location: [place] [address] Transcribed By: [facility] 12/05/231708 Dictated By: Omid Seals DO 12/05/231707 Signed By: 12/05/23 1709[facility] Physician GroupXR lumbar spine AP/LAT/FLX/EXTon 73-83-5627WB lumbar spine AP/LAT/FLX/EXTTR[facility]HE[facility] Main [place] [address] [place] [address] XRay Report Signed Patient: Canelo Pathak MR#: [id number] 4 : 1965 Acct:[id number] Age/Sex: 58 / F ADM Date: 12/05/23 Loc: XD Room: Type: [facility] CLI Attending Dr: Logan Brown MD Copies to: [...] Moderate facet degeneration SOFT TISSUES: Unremarkable BONY MINERALIZATION:Adequate XR/XR lumbar spine AP/LAT/FLX/EXT IMPRESSION: No hypermobility. Degenerative change. Impression dictated by: Omid Seals M.D.12/05/2023 5:08 PM Dictation Location: [facility]08 Transcribed By: [facility] 12/05/231707 Dictated By: Omid Seals DO 12/05/231705 Signed By: 12/05/23 170[facility] Physician GroupEstimated glomerular filtration rate (GFR) non- Americanon 23-15-3843CUG/1.73 sq M.predicted among non- blacks MDRD (S/P/Bld) [Vol rate/Area]mL/min/{1.73_m2}>=60[facility] TroyLaboratory - Chemistry and Chemistry - challengeon 10-25-2023 Calcium [Mass/Vol]9.3 mg/dL8.5-10.1FAdena Health SystemChloride [Moles/Vol]103 mmol/T75-603ZusannqvaKettering Health TroyCO2 [Moles/Vol]29.7 mmol/L21.0-32.0[facility] TroyCreatinine [Mass/Vol]0.88 mg/dL 0.55-1.02[facility] TroyFree T4 [Mass/Vol]1.33 ng/dL0.76-1.46 [facility] TroyGFR/1.73 sq M.predicted MDRD (S/P/Bld) [Vol rate/Area]mL/min/{1.73_m2}>=60[facility] TroyGlucose [Mass/Vol]121 mg/rMEpxg39-759OvyzseysgKettering Health TroyPotassium [Moles/Vol]4.4 mmol/L3.5-5.1FOhioHealth Pickerington Methodist Hospitalodium [Moles/Vol] 140 mmol/U709-660GygobvzccKettering Health TroyTSH Qn5.994 m[IU]/LHigh 0.358-3.740[facility] TroyUrea nitrogen [Mass/Vol]18.0 mg/dL 7.0-18.0[facility] TroyUrea nitrogen/Creatinine [Mass ratio] 20.5 mg/mgKettering Health TroyNo Panel Informationon 10-25-2023 Total Erzjqizbxdvxzboh807 ng/gO10-659TtkmnlkmlKettering Health TroyComment on above:Performed at: - [facility] [id number] Director: Giuseppe Newell PhD, Phone: [phone] or plasma anion gap determinationon 09-23-2720Mpphz gap [Moles/Vol]11.7 mmol/LFAdena Health SystemPatient Correspondenceon 84-25-3300Bcwkobn Correspondence [id number]#1.00TIFFBarney Children's Medical CenterAutomated epithelial cells count in urine sediment (number/area)on 88-32-7603Qoqzubberd cells Auto (Urine sed) [#/Area]RARE #/LPFNONE/RAREKettering Health TroyAutomated leukocytes count in urine sediment (number/area)on 33-65-1695MUJ Auto (Urine sed) [#/Area]0-2 #/HPF0-2FAdena Health SystemAutomated urine specific gravity by refractometryon 53-19-5098Sqkkjlfe gravity Refractometry automated (U) [Rel density]>=1.030 1.005-1.025[facility] TroyBasophils Auto (Bld) [#/Vol]on 72-84-2700Vkkgpyfro (Bld) [#/Vol]0.1 10 3/uL0.0-0.1FAdena Health SystemBasophils/100 WBC Auto (Bld)on 24-87-6190Raczalkss/100 WBC (Bld)1.4 % 0.2-2.0[facility] TroyBilirubin Auto test strip (U) [Mass/Vol] on 60-69-0060Pxkwcifmb (U) [Mass/Vol]NegativeNEGATIVEKettering Health TroyCast typing in urine sediment by light microscopyon 87-52-9477Gxeyd LM Nom (Urine sed)NONE SEEN #/LPFNONE SEENKettering Health Troy Cholesterol in LDL Calc [Mass/Vol]on 30-00-7397Bylfbrsgtvv in LDL [Mass/Vol] 101.0 mg/dLKettering Health TroyComment on above:<100 mg/dl KFLMTTQ585-979 mg/dl NEAR OR ABOVE OKXOOXT157-490 mg/dl BORDERLINE ABWB385-622 mg/dl HIGH>190 mg/dl VERY HIGHCholesterol in VLDL Calc [Mass/Vol]on 08-23-2023 Cholesterol in VLDL [Mass/Vol]25.0 mg/dLKettering Health TroyColor Auto (U)on 51-67-4774Yrqnm (U)YELLOWYELLOWKettering Health Troy Eosinophils/100 WBC Auto (Bld)on 44-65-8387Ngvmuzukmez/100 WBC (Bld)5.2 %0.9-7.0 [facility] TroyErythrocyte distribution width Auto (RBC) [Ratio]on 38-42-8202Hrrdzbihewd distribution width (RBC) [Ratio]12.1 %11.0-15.0 [facility] TroyEstimated glomerular filtration rate (GFR) non- Americanon 35-76-4049ARH/1.73 sq M.predicted among non-blacks MDRD (S/P/Bld) [Vol rate/Area]mL/min/{1.73_m2}>=60[facility] Globulin Calc (S) [Mass/Vol]on 77-39-9588Mmupnwdz (S) [Mass/Vol]3.3 g/dL [facility] TroyGlucose mean value [Mass/volume] in Blood Estimated from glycated hemoglobinon 79-56-7925Psmzkgu glucose Estimated from glycated hemoglobin (Bld) [Mass/Vol]143 mg/dLKettering Health Troy Hematocrit Auto (Bld) [Volume fraction]on 67-93-6237Gygwhcydvz (Bld) [Volume fraction]41.2 %36.0-48.0[facility] TroyHemoglobin [Mass/volume] in Bloodon 80-94-7701Rhcktdofqx (Bld) [Mass/Vol]13.6 g/dL12.0-16.0 [facility] TroyKetones Auto test strip (U) [Mass/Vol]on 00-84-4870Dzqqzda (U) [Mass/Vol]NegativeNEGATIVEKettering Health TroyLaboratory - Chemistry and Chemistry - challengeon 72-24-6082Modjxag [Mass/Vol]3.8 g/dL3.4-5.0[facility] TroyALP [Catalytic activity/Vol]72 U/R93-766NfxkahxgyKettering Health TroyALT [Catalytic activity/Vol]25 U/M57-95UfcvshmkuKettering Health TroyAST [Catalytic activity/Vol]14 U/J29-37CrqezxqpcKettering Health TroyBilirubin [Mass/Vol]0.5 mg/dL0.2-1.0[facility] TroyCalcium [Mass/Vol]9.1 mg/dL 8.5-10.1FAdena Health SystemChloride [Moles/Vol]103 mmol/L98-107 [facility] TroyCholesterol [Mass/Vol]193 mg/dL<=200[facility] TroyCholesterol in HDL [Mass/Vol]67 mg/jF71-37CxgvumymrKettering Health TroyComment on above:> or =60 mg/dl - LOW CARDIOVASCULAR RISK<40 mg/dl - HIGH CARDIOVASCULAR RISKCO2 [Moles/Vol]28.7 mmol/L21.0-32.0 [facility] TroyCreatinine [Mass/Vol]0.77 mg/dL0.55-1.02 [facility] TroyFree T4 [Mass/Vol]1.11 ng/dL0.76-1.46[facility] TroyGFR/1.73 sq M.predicted MDRD (S/P/Bld) [Vol rate/Area] mL/min/{1.73_m2}>=60[facility] TroyGlucose [Mass/Vol]117 mg/dL 74-106[facility] TroyPotassium [Moles/Vol]4.2 mmol/L3.5-5.1 [facility] TroyProtein [Mass/Vol]7.1 g/dL6.4-8.2FOhioHealth Pickerington Methodist Hospitalodium [Moles/Vol]142 mmol/W949-948CdyymbvkuKettering Health TroyTriglyceride [Mass/Vol]125 mg/dL<=150[facility] TroyTSH Qn18.751 m[IU]/L0.358-3.740[facility] TroyUrea nitrogen [Mass/Vol]19.0 mg/dL7.0-18.0[facility] TroyUrea nitrogen/Creatinine [Mass ratio]24.7 mg/mgKettering Health Troy Laboratory - Hematology and Cell countson 60-12-8706MiU0z (Bld) [Mass fraction] 6.6 %4.5-6.2FAdena Health SystemComment on above:ADA RECOMMENDED LIMIT 4.0 - 6.0ADA THERAPEUTIC TARGET < 7.0ACTION SUGGESTED> 7.0Immature granulocytes/100 WBC (Bld)0.3 %0.0-0.5FAdena Health System Leukocytes [#/volume] corrected for nucleated erythrocytes in Blood by Automated counon 65-37-3485QVA corrected for nucl RBC Auto (Bld) [#/Vol]7.4 10 3/uL 4.0-11.0[facility] TroyLymphocytes Auto (Bld) [#/Vol]on 96-56-4516Eubfjnwztzo (Bld) [#/Vol]2.2 10 3/uL1.2-3.8[facility] TroyLymphocytes/100 WBC Auto (Bld)on 23-55-8495Yxjacmeauvp/100 WBC (Bld)29.7 % 20.5-60.0[facility] HospitalH Auto (RBC) [Entitic mass]on 20-45-0372VHQ (RBC) [Entitic mass]31.3 pg26.7-34.0[facility] TroyMCHC Auto (RBC) [Mass/Vol]on 21-06-0681FAGV (RBC) [Mass/Vol]33.0 g/dL 29.9-35.2FAdena Health SystemMCV Auto (RBC) [Entitic vol]on 28-07-4262PKA (RBC) [Entitic vol]94.7 fL81.0-99.0[facility] TroyMonocytes Auto (Bld) [#/Vol]on 49-09-6013Nzhwgblay (Bld) [#/Vol]0.5 10 3/uL0.3-0.8[facility] TroyMonocytes/100 WBC Auto (Bld)on 99-35-4182Gzjcqczrn/100 WBC (Bld)6.4 %1.7-12.0[facility] Mucus LM Ql (Urine sed)on 85-99-3896Kxjji Ql (Urine sed)MODERATENONE SEEN [facility] TroyNeutrophils Auto (Bld) [#/Vol]on 08-23-2023 Neutrophils (Bld) [#/Vol]4.2 10 3/uL1.4-6.5FAdena Health System Neutrophils/100 WBC Auto (Bld)on 85-08-6565Hamevkafshi/100 WBC (Bld)57.0 % 43.0-75.0[facility] TroyNo Panel Informationon - Hydroxy Vitamin D Total35.2 ng/mLKettering Health TroyComment on above:<20 ng/mL Vit D lhmzbptju14-<30 ng/mL Vit D zcnmxvizyozk77-259 ng/mL Vit D sufficient>100 ng/mL Potential ToxicityEosinophils # (Auto)0.4 10 3/uL0.0-0.7 [facility] TroyFree Triiodothyronine1.94 pg/mL2.18-3.98 [facility] TroyImmature Granulocyte # (Auto)0.02 10 3/uL 0.00-0.03[facility] TroyPlatelet mean volume Auto (Bld) [Entitic vol]on 20-56-2873Lfgmqbwv mean volume (Bld) [Entitic vol]9.7 fL9.5-13.5 [facility] TroyPlatelets Auto (Bld) [#/Vol]on 08-23-2023 Platelets (Bld) [#/Vol]347 10 3/bW746-789BkluyhthmKettering Health Troy Protein Auto test strip (U) [Mass/Vol]on 65-33-3306Qcogxcu (U) [Mass/Vol] NegativeNEG/TRACEKettering Health TroyRBC Auto (Bld) [#/Vol]on 05-29-3238GXO (Bld) [#/Vol]4.35 10 6/uL4.20-5.40[facility]acon[facility] Hospitalerum or plasma albumin/globulin mass ratioon 70-95-2428Mthidzl/Globulin [Mass ratio]1.2 {ratio}[facility] Hospitalerum or plasma anion gap determinationon 10-37-7504Fbztl gap [Moles/Vol]14.5 mmol/LFOhioHealth Pickerington Methodist Hospitalerum or plasma total cholesterol/high density lipoprotein (HDL) cholesterol mass constantin 57-63-5788Saqopkkbdcq.total/Cholesterol in HDL [Mass ratio]2.9 {ratio}[facility] TroyComment on above:3.3 - 4.4 LOW RISK4.4 - 7.1 AVERAGE RISK7.1 - 11.0 MODERATE RISK>11.0 HIGH RISKSpecific gravity Auto test strip (U) [Rel density]on 96-29-4781Ktscpwvv gravity (U) [Rel density]CLEARCLEPremier Health Miami Valley Hospital NorthUrine bacteria detection by automated methodon 56-53-8702Uexgtsxc Auto Ql (U)NONE SEEN #/HPFNONE SEEN [facility] TroyUrine glucose measurement by test strip (mass/volume)on 06-45-7451Xpdsauf Test strip (U) [Mass/Vol]NegativeNEGATIVE [facility] TroyUrine hemoglobin detection by automated test stripon 28-48-7433Djbrnghain Auto test strip Ql (U)NegativeNEGMercy Health St. Vincent Medical CenterUrine nitrite detection by automated test stripon 07-79-8746Zonnfft Auto test strip Ql (U)NegativeNEGMercy Health St. Vincent Medical CenterUrine sediment crystal identification by light microscopyon 44-07-1536Sowxbqtq LM Nom (Urine sed)None Seen #/HPFNone Cherrington HospitalUrine sediment leukocyte count by microscopy (number/high power field)on 11-63-6022OPU LM.HPF (Urine sed) [#/Area]0-2 #/HPFNONE [facility] Medical CenterUrobilinogen Auto test strip (U) [Mass/Vol]on 08-23-2023 Urobilinogen Qn (U)0.2 {David'U}/dL0.2-1.0[facility] TroypH Auto test strip (U)on 24-46-6400kZ (U)5.5 [pH]5.0-9.0[facility] TroyPatient Correspondenceon 24-07-9996Pgkhpaz Correspondence [id number]#1.00BROOKHAVENLuchoElyria Memorial HospitalInsurance Correspondence Officeon 74-17-5241Yyqshahob Correspondence [id number]#1.00[facility] Urbana HospitalConsent for Treatmenton 86-97-7582Gllxfvk for Treatment [id number]#1.00TIFTrinity Health System East CampusConsultation Noteon 32-86-0564Ttjccxzzmsev NotePatient: CANELO PATHAK Age: 57 years Sex: Female [...] severity when standing. She has a significantly diminishedambulatory distance and she can only stand 10 to 15 minutes for the pain intensifies to a degree where she has to sit down. This pain has been significantly debilitating to her for several months andshe has had back pain for several years. She did have a recent MRI that showed moderate central canal stenosis at L3/4 moderate to severe central canal stenosis at L4/5 and a disc bulge with annular tear and high intensity zone at L5/S1. We did review her MRI results with her today. She has tried conservative measures inclusive of nqco-eti-qcinjze medications and prescription medications inclusive of meloxicam, [...] Histories Past Medical History: Active Acid reflux (365215251) Asthma (917940618) Hypothyroid (692668981) Family History: No family history items have been selected or recorded. Procedure history: Myringotomy and insertion of T tube (577333241). Comments: 02/22/2011 10:22 TINOT - Trixie HART, [place] x2 Tonsillectomy (998520561). Cholecystectomy (30560353). Laparoscopy (255826360). Abdominal hysterectomy (240685709). Physical Examination Vital Signs (last 24 hrs) Last Charted Heart Rate Peripheral 81 bpm (MAY 10:) SBP H 162mmHg (MAY 10:10) DBP H 90mmHg (MAY 10:) Weight 123.7 kg (MAY 10:10) BMI 44.89 [...] and treatment, all questions were answered and patientagrees to adhere to the plan above. Risk and benefits of appropriate procedures and medications were reviewed as well with patient, who voiced (more content not included)...[facility] Children's Medical CenterComment on above:Result Comment: Electronically Signed By: Casper Nguyen DO\.br\Date and Time Signed: 05/10/23 15:07 ESTHIPAA Forms Officeon 24-29-2605YFZMU Forms [id number]#1.00TIFFNoOhioHealthLegal Correspondence Officeon 90-23-7294Aaaam Correspondence [id number]#1.00TIFFNoOhioHealthLegal Correspondence Office [id number]#1.00TIFFNoOhioHealthOffice/Clinic Note-Physicianon 02-71-1292Ttxamo/Clinic Note-Physician [id number]#1.00TIFTrinity Health System East CampusPatient Correspondenceon 31-58-3957Jhkcgxu Correspondence [id number]#1.00TIFTrinity Health System East CampusPatient [id number]#1.00TIFF [facility] CenterPatient Correspondence [id number]#1.00TIFFBarney Children's Medical CenterPatient [id number]#1.00TIFF [facility] Medical CenterPatient Correspondence [id number]#1.00[facility]rbana HospitalPatient History Officeon 35-06-4444Tvwdnyx History Office [id number]#1.00[facility]rbana HospitalOutside Records Officeon 24-57-6854Wzylcvp Records Office [id number]#1.00[facility]rbana HospitalRadiology Outside Office Copyon 59-86-1654Qhojvuxza Outside Office Copy [id number]#1.00[facility]rbana HospitalReferrals Officeon 96-50-6845Cyavwioam Office [id number]#1.00[facility]rbana HospitalMR LUMBAR SPINE WO CONTRASTon 23-93-5740JX LUMBAR SPINE WO CONTRASTEXAM: MRI Lumbar Spine MR LUMBAR SPINE WO [...] PARACENTRIC DISC EXTRUSION SUSPECTED. ELECTRONICALLY SIGNED BY: James Mendieta AvailableComment on above:Order Comment: Patient is Diabetic Type 2 Possible Transdermal patchCBC AUTO DIFFon 66-96-6321RUTM #0.1 103/ulNormal 0.0-0.1[facility] Health SystemComment on above:Performed By: #### FT3, CMP, LIPID, TSH #### [facility] [address] [place] [address] [address] Gin Loraphils/100 WBC (Bld)0.9 %Normal0.2-2.0[facility] Comment on above:Performed By: #### FT3, CMP, LIPID, TSH #### [facility] [address] [place] [address] [address] Gin Carlton #0.5 103/ulNormal0.0-0.7The [facility] Medical CenterComment on above: Performed By: #### FT3, CMP, LIPID, TSH #### [facility] [address] [place] [address] Dr. Gin Reganosinophils/100 WBC (Bld)5.8 %Normal0.9-7.0The [facility] Comment on above:Performed By: #### FT3, CMP, LIPID, TSH #### [facility] [address] [place] [address] Dr. Gin Reganrythrocyte distribution width (RBC) [Ratio]13.0 %Mqrcfv55.0-15.0 [facility] Medical CenterComment on above:Performed By: #### FT3, CMP, LIPID, TSH #### [facility] [address] [place] [address] Dr. Gin ChewHematocrit (Bld) [Volume fraction]39.7 %Ilcynx53.0-48.0The [facility] Medical CenterComment on above:Performed By: #### FT3, CMP, LIPID, TSH #### [facility] [address] [place] [address] Dr. Gin ChewHemoglobin (Bld) [Mass/Vol]13.2 g/aQNvbrik86.0-16.0The [facility] CenterComment on above:Performed By: #### FT3, CMP, LIPID, TSH #### [facility] [address] [place] [address] Dr. Gin Harris #0.05 10e3/ulCritically high0.00-0.03The [facility] Comment on above:Performed By: #### FT3, CMP, LIPID, TSH #### [facility] [address] [place] [address] Dr. Gin Harris %0.6 %Critically high0.0-0.5The [facility] Medical CenterComment on above:Performed By: #### FT3, CMP, LIPID, TSH #### [facility] [address] [place] [address] Dr. Gin Girard #2.1 103/ulNormal1.2-3.8The [facility] Medical CenterComment on above:Performed By: #### FT3, CMP, LIPID, TSH #### [facility] [address] [place] [address] Dr. Gin Mckeonmphocytes/100 WBC (Bld)27.4 %Utxgit98.5-60.0The [facility] CenterComment on above:Performed By: #### FT3, CMP, LIPID, TSH #### [facility] [address] [place] [address] Dr. Gin JangUAL DIFF REQNONormalThe [facility] CenterComment on above: Performed By: #### FT3, CMP, LIPID, TSH #### [facility] [address] [place] [address] Dr. Gin Love (RBC) [Entitic mass]30.9 biDzujbo70.7-34.0The [facility] CenterComment on above:Performed By: #### FT3, CMP, LIPID, TSH #### [facility] [address] [place] [address] Dr. Gin Love (RBC) [Mass/Vol]33.2 g/pBRqheyw16.9-35.2The [facility] CenterComment on above:Performed By: #### FT3, CMP, LIPID, TSH #### [facility] [address] [place] [address] Dr. Gin Love (RBC) [Entitic vol]93.0 uPLaojex34.0-99.0The [facility] CenterComment on above:Performed By: #### FT3, CMP, LIPID, TSH #### [facility] [address] [place] [address] Dr. Gin Reyes #0.6 103/ulNormal0.3-0.8The [facility] CenterComment on above:Performed By: #### FT3, CMP, LIPID, TSH #### [facility] [address] [place] [address] Dr. Gin Mathiasocytes/100 WBC (Bld)7.1 %Normal1.7-12.0[facility] Comment on above:Performed By: #### FT3, CMP, LIPID, TSH #### [facility] [address] [place] [address] Dr. Gin Romero #4.5 103/ulNormal1.4-6.5The [facility] CenterComment on above:Performed By: #### FT3, CMP, LIPID, TSH #### [facility] [address] [place] [address] Dr. Gin Boutrophils/100 WBC (Bld)58.2 %Sorcrg74.0-75.0The [facility] CenterComment on above:Performed By: #### FT3, CMP, LIPID, TSH #### [facility] [address] [place] [address] Dr. Gin Howardlet mean volume (Bld) [Entitic vol]9.7 fLNormal9.5-13.5The [facility] CenterComment on above:Performed By: #### FT3, CMP, LIPID, TSH #### [facility] [address] [place] [address] Dr. Gin ChewPLT339 103/gaPnorbs156-824Fnf [facility] CenterComment on above: Performed By: #### FT3, CMP, LIPID, TSH #### [facility] [address] [place] [address] Dr. Gin ChewRBC4.27 106/ulNormal4.20-5.40The [facility] on above:Performed By: #### FT3, CMP, LIPID, TSH #### [facility] [address] [place] [address] Dr. Gin ChewWBC7.7 103/ulNormal4.0-11.0The [facility]Com[facility] on above: Performed By: #### FT3, CMP, LIPID, TSH #### [facility] [address] [place] [address] Dr. Gin ChewPROToshia CHEM 8 (BAS METB)on 79-66-2626Qzpaq gap [Moles/Vol]9.4 mmol/LNormalThe [facility] CenterComment on above:Performed By: #### FT3, CMP, LIPID, TSH #### [facility] [address] [place] [address] Dr. Gin ChewCalcium [Mass/Vol]9.1 mg/dLNormal8.5-10.1The [facility] Comment on above:Performed By: #### FT3, CMP, LIPID, TSH #### [facility] [address] [address] [address] Gin ChewChloride [Moles/Vol]104 mmol/LYzxray62-312Hrs [facility] Comment on above:Performed By: #### FT3, CMP, LIPID, TSH #### [facility] [address] [address] [address] Gin ChewCO2 [Moles/Vol]31.7 mmol/OGmdghj35.0-32.0The [facility] Comment on above:Performed By: #### FT3, CMP, LIPID, TSH #### [facility] [address] [address] [address] Gin ChewCreatinine [Mass/Vol]0.77 mg/dLNormal0.55-1.02The [facility] CenterComment on above:Performed By: #### FT3, CMP, LIPID, TSH #### [facility] [address] [address] [address] Gin ReganGFR-AF FILIPINO>60Normal>=60The [facility] CenterComment on above:Performed By: #### FT3, CMP, LIPID, TSH #### [facility] [address] [address] [address] Gin ReganGFR-NON AF FILIPINO>60Normal>=60The [facility] CenterComment on above:Performed By: #### FT3, CMP, LIPID, TSH #### [facility] [address] [address] [address] Gin ChewGlucose [Mass/Vol]143 mg/dLCritically nbse11-876Uwn [facility] CenterComment on above:Performed By: #### FT3, CMP, LIPID, TSH #### [facility] [address] [address] [address] Gin ChewPotassium [Moles/Vol]4.1 mmol/LNormal3.5-5.1The [facility] Comment on above:Performed By: #### FT3, CMP, LIPID, TSH #### [facility] [address] [address] [address] Gin ChewSodium [Moles/Vol]141 mmol/ROpomib881-635Sjo [facility] Comment on above:Performed By: #### FT3, CMP, LIPID, TSH #### [facility] [address] [address] [address] Gin ChewUrea nitrogen [Mass/Vol]19.0 mg/dLCritically high7.0-18.0The [facility] CenterComment on above:Performed By: #### FT3, CMP, LIPID, TSH #### [facility] [address] [address] [address] Gin Bennett nitrogen/Creatinine [Mass ratio]24.7 mg/mgNoTrinity Health System East CampusComment on above:Performed By: #### FT3, CMP, LIPID, TSH #### [facility] [address] [place] [address] Dr. Gin ChewXR CHEST 2 Von [id number] CHEST 2 VEXAM: XR CHEST 2 V HISTORY: Cough , [...] Electronically authenticated by: DURGA DENNIS Date: 2022-09-08 15:53[facility] W MANUAL DIFFon [id number]+NormalThe [facility] CenterComment on above:Performed By: #### CBCMAN #### [facility] [address] [place] [address] Dr. Gin ChewATYPICAL LYMPH #NormalThe [facility] HospitalComment on above: Performed By: #### VICKIE #### [facility] [address] [address] [address] Gin ChewATYPICAL LYMPH %NormalThe [facility] HospitalComment on above: Performed By: #### VICKIE #### [facility] [address] [address] [address] Gin Cameron #0.6 103/ulCritically high0.0-0.3The [facility] on above:Performed By: #### VICKIE #### [facility] [address] [address] [address] Gin Cameron %4 %Normal0-5The [facility] CenterComment on above:Performed By: #### VICKIE #### [facility] [address] [address] [address] Gin Persaud #0.00 103/ulNormal0.00-0.10The [facility] CenterComment on above:Performed By: #### VICKIE #### [facility] [address] [address] [address] Gin Persaud %0.0 %Critically low0.2-2.0The [facility] CenterComment on above:Performed By: #### VICKIE #### [facility] [address] [address] [address] Gin Carl #NormalThe [facility] CenterComment on above:Performed By: #### VICKIE #### [facility] [address] [address] [address] Gin Carl %NormalBlanchard Valley Health SystemComment on above:Performed By: #### VICKIE #### [facility] [address] [address] [address] Gin ChewCORRECTED WBCNormal4.0-11.0The [facility] CenterComment on above: Performed By: #### VICKIE #### [facility] [address] [address] [address] Gin Martinez #0.45 103/ulNormal0.00-0.70The [facility] CenterComment on above:Performed By: #### CBCDORIS #### [facility] [address] [address] [address] Gin Martinez%3.0 %Normal0.9-7.0The [facility] CenterComment on above: Performed By: #### CBCDORIS #### [facility] [address] [address] [address] Gin ChewHCT43.1 %Czcwir63.0-48.0The [facility] CenterComment on above: Performed By: #### CBCDORIS #### [facility] [address] [address] [address] Gin ChewHGB14.4 g/cbAtwxup72.0-16.0The [facility] CenterComment on above: Performed By: #### VICKIE #### [facility] [address] [place] [address] Dr. Gin Prieto #3.93 103/ulCritically high1.20-3.80The [facility] Comment on above:Performed By: #### VICKIE #### [facility] [address] [address] [address] Gin Prieto%26.0 %Qtzmyy78.5-60.0The [facility] CenterComment on above:Performed By: #### VICKIE #### [facility] [address] [place] [address] Dr. Gin ChewMCH31.0 fsNncjnl29.7-34.0The [facility] CenterComment on above: Performed By: #### CBCDORIS #### [facility] [address] [place] [address] Dr. Gin LoveHC33.4 g/jpCkujvb27.9-35.2The [facility] CenterComment on above:Performed By: #### CBCDORIS #### [facility] [address] [place] [address] Dr. Gin LoveV92.7 dAQfdgao60.0-99.0The [facility] CenterComment on above: Performed By: #### CBCDORIS #### [facility] [address] [address] [address] Gin BlanchardOCYTE #NormalBlanchard Valley Health SystemComment on above: Performed By: #### VICKIE #### [facility] [address] [address] [address] Gin ParmarAMYELOCYTE %NormalBlanchard Valley Health SystemComment on above: Performed By: #### VIKCIE #### [facility] [address] [address] [address] Gin Oconnell#1.06 103/ulCritically high0.30-0.80The [facility] on above:Performed By: #### VICKIE #### [facility] [address] [address] [address] Gin Oconnell%7.0 %Normal1.7-12.0[facility] SystemComment on above: Performed By: #### VICKIE #### [facility] [address] [place] [address] Dr. Gin OrtizV9.7 fLNormal9.5-13.5ThAdams County Regional Medical CenterComment on above: Performed By: #### VICKIE #### [facility] [address] [place] [address] Dr. Gin Saleem #NormalBlanchard Valley Health SystemComment on above:Performed By: #### VICKIE #### [facility] [address] [place] [address] Dr. Gin Saleem %NormalBlanchard Valley Health SystemComment on above:Performed By: #### VICKIE #### [facility] [address] [place] [address] Dr. Gin ChewNRBCNormalThAdams County Regional Medical CenterComment on above:Performed By: #### VICKIE #### [facility] [address] [place] [address] Dr. Gin ChewPLT372 103/gcFtydsj949-699Ikl [facility] CenterComment on above: Performed By: #### VICKIE #### [facility] [address] [place] [address] Dr. Gin ChewRBC4.65 106/ulNormal4.20-5.40The [facility] CenterComment on above:Performed By: #### VICKIE #### [facility] [address] [place] [address] Dr. Gin ChewRDW13.0 %Zxcjoh60.0-15.0The [facility] CenterComment on above: Performed By: #### VICKIE #### [facility] [address] [place] [address] Dr. Gin Redding #9.06 103/ulCritically high1.40-6.50The [facility] Comment on above:Performed By: #### VICKIE #### [facility] [address] [place] [address] Dr. Gin Redding %60.0 %Rlwmpo13.0-75.0The [facility] CenterComment on above: Performed By: #### VICKIE #### [facility] [address] [place] [address] Dr. Gin ChewWBC15.1 103/ulCritically high4.0-11.0The [facility] CenterComment on above:Performed By: #### VICKIE #### [facility] [address] [place] [address] Dr. Gin ChewLACTATE/LACTIC ACIDon 68-77-4319Swxffgz [Moles/Vol]1.2 mmol/L Normal0.4-2.0The [facility] CenterComment on above:Performed By: #### BMP #### [facility] [address] [place] [address] Dr. Gin ChewPROF CHEM 8 (BAS METB)on 93-73-3334Tahdx gap [Moles/Vol]11.4 mmol/LNormalThe [facility] CenterComment on above:Performed By: #### A1C #### [facility] [address] [place] [address] Dr. Gin ChewCalcium [Mass/Vol]9.2 mg/dLNormal8.5-10.1[facility] Comment on above:Performed By: #### A1C #### [facility] [address] [address] [address] Gin ChewChloride [Moles/Vol]102 mmol/XSzibow66-722Goj [facility] Comment on above:Performed By: #### A1C #### [facility] [address] [address] [address] Gin ChewCO2 [Moles/Vol]31.3 mmol/BPdpgzp24.0-32.0The [facility] Comment on above:Performed By: #### A1C #### [facility] [address] [address] [address] Gin ChewCreatinine [Mass/Vol]0.86 mg/dLNormal0.55-1.02The [facility] CenterComment on above:Performed By: #### A1C #### [facility] [address] [address] [address] Greenfield ChangEGFR-AF FILIPINO>60Normal>=60The [facility] CenterComment on above:Performed By: #### A1C #### [facility] [address] [address] [address] Gin ReganGFR-NON AF FILIPINO>60Normal>=60The [facility] CenterComment on above:Performed By: #### A1C #### [facility] [address] [address] [address] Gin ChewGlucose [Mass/Vol]119 mg/dLCritically jgvs52-751Rgr [facility] CenterComment on above:Performed By: #### A1C #### [facility] [address] [address] [address] Gin ChewPotassium [Moles/Vol]3.7 mmol/LNormal3.5-5.1The [facility] Comment on above:Performed By: #### A1C #### [facility] [address] [address] [address] Gin ChewSodium [Moles/Vol]141 mmol/ZVarggk722-752Oue [facility] Comment on above:Performed By: #### A1C #### [facility] [address] [address] [address] Gin Bennett nitrogen [Mass/Vol]17.0 mg/dLNormal7.0-18.0The [facility] CenterComment on above:Performed By: #### A1C #### [facility] [address] [place] [address] Dr. Gin Bennett nitrogen/Creatinine [Mass ratio]19.8 mg/mgNormalThe [facility] CenterComment on above:Performed By: #### A1C #### [facility] [address] [place] [address] Dr. Gin Cruz RATE WESTERGRENon 53-82-1511CTB RATE8 mm/hrNormal<=30The [facility] CenterComment on above:Performed By: #### A1C #### [facility] [address] [place] [address] Dr. Gin BelcherC AUTO DIFFon [id number] #0.1 103/ulNormal0.0-0.1The [facility] CenterComment on above:Performed By: #### BMP #### [facility] [address] [place] [address] Dr. Gin ChewBasophils/100 WBC (Bld)0.7 %Normal0.2-2.0The [facility] Comment on above:Performed By: #### BMP #### [facility] [address] [place] [address] Dr. Gin Carlton #0.3 103/ulNormal0.0-0.7The [facility] on above: Performed By: #### BMP #### [facility] [address] [place] [address] Dr. Gin Reganosinophils/100 WBC (Bld)1.9 %Normal0.9-7.0The [facility] Comment on above:Performed By: #### BMP #### [facility] [address] [place] [address] Dr. Gin Reganrythrocyte distribution width (RBC) [Ratio]12.9 %Sirwhd79.0-15.0 [facility] HospitalComment on above:Performed By: #### BMP #### [facility] [address] [address] [address] Gin Ewingatolanit (Bld) [Volume fraction]42.9 %Fzdkxs09.0-48.0The [facility] CenterComment on above:Performed By: #### BMP #### [facility] [address] [address] [address] Gin ChewHemoglobin (Bld) [Mass/Vol]14.3 g/nNDzdpwa99.0-16.0The [facility] CenterComment on above:Performed By: #### BMP #### [facility] [address] [place] [address] Dr. Gin Harris #0.41 10e3/ulCritically high0.00-0.03The [facility] Comment on above:Performed By: #### BMP #### [facility] [address] [place] [address] Dr. Gin Harris %2.5 %Critically high0.0-0.5The [facility] CenterComment on above:Performed By: #### BMP #### [facility] [address] [place] [address] Dr. Gin Girard #3.5 103/ulNormal1.2-3.8The [facility] CenterComment on above:Performed By: #### BMP #### [facility] [address] [place] [address] Dr. Gin Barcenashocytes/100 WBC (Bld)21.5 %Ebuumd30.5-60.0The [facility] CenterComment on above:Performed By: #### BMP #### [facility] [address] [place] [address] Dr. Gin JangUAL DIFF REQNONormalThe [facility] CenterComment on above: Performed By: #### BMP #### [facility] [address] [place] [address] Dr. Gin Lanier (RBC) [Entitic mass]30.9 ddCwyyka42.7-34.0The [facility] HospitalComment on above:Performed By: #### BMP #### [facility] [address] [place] [address] Dr. Gin Love (RBC) [Mass/Vol]33.3 g/iMVgcxtw14.9-35.2The [facility] CenterComment on above:Performed By: #### BMP #### [facility] [address] [place] [address] Dr. Gin Love (RBC) [Entitic vol]92.7 wCNehdlp45.0-99.0The [facility] CenterComment on above:Performed By: #### BMP #### [facility] [address] [place] [address] Dr. Gin Reyes #1.0 103/ulCritically high0.3-0.8The [facility] Comment on above:Performed By: #### BMP #### [facility] [address] [place] [address] Dr. Gin Mathiasocytes/100 WBC (Bld)6.2 %Normal1.7-12.0The [facility] Comment on above:Performed By: #### BMP #### [facility] [address] [place] [address] Dr. Gin Romero #10.9 103/ulCritically high1.4-6.5The [facility] Comment on above:Performed By: #### BMP #### [facility] [address] [place] [address] Dr. Gin Boutrophils/100 WBC (Bld)67.2 %Hoihii15.0-75.0The [facility] CenterComment on above:Performed By: #### BMP #### [facility] [address] [place] [address] Dr. Gin Howardlet mean volume (Bld) [Entitic vol]9.7 fLNormal9.5-13.5The [facility] CenterComment on above:Performed By: #### BMP #### [facility] [address] [place] [address] Dr. Gin HernandezT424 103/riOoltzz128-553Fnp [facility] CenterComment on above: Performed By: #### BMP #### [facility] [address] [place] [address] Dr. Gin ChewRBC4.63 106/ulNormal4.20-5.40The [facility] CenterComment on above:Performed By: #### BMP #### [facility] [address] [place] [address] Dr. Gin ChewWBC16.2 103/ulCritically high4.0-11.0The [facility] CenterComment on above:Performed By: #### BMP #### [facility] [address] [place] [address] Dr. Gin ChewCT HEAD WO CONon [id number] HEAD WO CONHEAD CT WITHOUT CONTRAST, 08/17/2022 5:03 PM EDT: [...] Electronically authenticated by: Lloyd SANDRA Date: 2022-08-17 18:16[facility] CampusCovid-19 PCR (CVDTB)on [id number]-CoV-2 (COVID-19) RNA ARIADNA+probe Ql (Unsp spec)Not detectedNormalNOT DETECTEDThe [facility] Comment on above:Result Comment: This test is not yet approved or cleared by the [place] FDA. When there are no FDA-approved or cleared tests available, and other criteria are met, FDA can make tests available under an emergency access mechanism called an Emergency Use Authorization (EUA). The EUA for this test is supported by the Compliance Director of Health and Human Service's (HHS's) declaration that circumstances exist to justify the emergency use of in vitro diagnostics for the detection and/or diagnosis of the virus that causes COVID- 19. This EUA will remain in effect (meaning [...] of clinical signs and symptoms consistent with SARS-CoV-2.Performed By: #### A1C #### [facility] [address] [place] [address] Dr. Gin ChewPROF CHEM 8 (BAS METB)on 84-56-7626Xjcrd gap [Moles/Vol]13.8 mmol/LNormalBlanchard Valley Health SystemComment on above:Performed By: #### BMP #### [facility] [address] [place] [address] Dr. Gin ChewCalcium [Mass/Vol]9.0 mg/dLNormal8.5-10.1[facility] Comment on above:Performed By: #### BMP #### [facility] [address] [place] [address] Dr. Gin ChewChloride [Moles/Vol]102 mmol/KRwkuzb11-702PboBlanchard Valley Health System Comment on above:Performed By: #### BMP #### [facility] [address] [place] [address] Dr. Gin ChewCO2 [Moles/Vol]28.4 mmol/DTstgox12.0-32.0[facility] Comment on above:Performed By: #### BMP #### [facility] [address] [address] [address] Gin ChewCreatinine [Mass/Vol]0.93 mg/dLNormal0.55-1.02The [facility] CenterComment on above:Performed By: #### BMP #### [facility] [address] [address] [address] Greenfield ChangEGFR-AF FILIPINO>60Normal>=60The [facility] CenterComment on above:Performed By: #### BMP #### [facility] [address] [address] [address] Gin ReganGFR-NON AF FILIPINO>60Normal>=60The [facility] CenterComment on above:Performed By: #### BMP #### [facility] [address] [address] [address] Gin ChewGlucose [Mass/Vol]133 mg/dLCritically bqpz42-006Pvn [facility] CenterComment on above:Performed By: #### BMP #### [facility] [address] [address] [address] Gin ChewPotassium [Moles/Vol]4.2 mmol/LNormal3.5-5.1The [facility] Comment on above:Performed By: #### BMP #### [facility] [address] [place] [address] Dr. Gin ChewSodium [Moles/Vol]140 mmol/SHfyjsc983-814Rrf [facility] Comment on above:Performed By: #### BMP #### [facility] [address] [address] [address] Gin ChewUrea nitrogen [Mass/Vol]20.0 mg/dLCritically high7.0-18.0The [facility] CenterComment on above:Performed By: #### BMP #### [facility] [address] [address] [address] Gin ChewUrea nitrogen/Creatinine [Mass ratio]21.5 mg/mgNormalThe [facility] CenterComment on above:Performed By: #### BMP #### [facility] [address] [place] [address] Dr. Gin GrimesMATIC COVID-19 ANTIGENon [id number] StatementSEE BELOW NormalThe [facility] CenterComment on above:Result Comment: This test has not been FDA [...] declaration is terminated or authorization is revoked sooner.Performed By: #### A1C #### [facility] [address] [place] [address] Dr. Gin Posey-CoV-2 (COVID-19) RNA ARIADNA+probe Ql (Unsp spec)NegativeNormal NEGATIVEThe [facility] CenterComment on above:Performed By: #### A1C #### [facility] [address] [place] [address] Dr. Gin Salter AUTO DIFFon [id number] #0.1 103/ulNormal0.0-0.1The [facility] CenterComment on above:Performed By: #### BMP #### [facility] [address] [place] [address] Dr. Gin ChewBasophils/100 WBC (Bld)1.0 %Normal0.2-2.0The [facility] Comment on above:Performed By: #### BMP #### [facility] [address] [place] [address] Dr. Greenfield ChangEO #0.5 103/ulNormal0.0-0.7The [facility] CenterComment on above: Performed By: #### BMP #### [facility] [address] [place] [address] Dr. Gin Reganosinophils/100 WBC (Bld)7.1 %Critically high0.9-7.0The [facility] CenterComment on above:Performed By: #### BMP #### [facility] [address] [place] [address] Dr. Gin Reganrythrocyte distribution width (RBC) [Ratio]12.3 %Ozkrdg34.0-15.0 The [facility] CenterComment on above:Performed By: #### BMP #### [facility] Laboratory [address] [place] [address] Dr. Gin ChewHematocrit (Bld) [Volume fraction]39.6 %Ogvkej16.0-48.0The [facility] CenterComment on above:Performed By: #### BMP #### [facility] [address] [place] [address] Dr. Gin ChewHemoglobin (Bld) [Mass/Vol]13.5 g/gYZhzlrl99.0-16.0The [facility] CenterComment on above:Performed By: #### BMP #### [facility] Laboratory [address] [place] [address] Dr. Gin ChewIG #0.03 10e3/ulNormal0.00-0.03The [facility] CenterComment on above:Performed By: #### BMP #### [facility] Laboratory [address] [place] [address] Dr. Gin ChewIG %0.4 %Normal0.0-0.5The [facility] CenterComment on above: Performed By: #### BMP #### [facility] Laboratory [address] [place] [address] Dr. Gin MckeonMPH #2.4 103/ulNormal1.2-3.8The [facility] CenterComment on above:Performed By: #### BMP #### [facility] Laboratory [address] [place] [address] Dr. Gin Mckeonmphocytes/100 WBC (Bld)33.7 %Rnsfyi76.5-60.0The [facility] CenterComment on above:Performed By: #### BMP #### [facility] Laboratory [address] [place] [address] Dr. Gin Jones DIFF REQNONormalThe [facility] CenterComment on above: Performed By: #### BMP #### [facility] [address] [place] [address] Dr. Gin Love (RBC) [Entitic mass]30.8 ewJkhwdl27.7-34.0The [facility] CenterComment on above:Performed By: #### BMP #### [facility] Laboratory [address] [place] [address] Dr. Gin Love (RBC) [Mass/Vol]34.1 g/wBNzkcvw33.9-35.2The [facility] CenterComment on above:Performed By: #### BMP #### [facility] Laboratory [address] [place] [address] Dr. Gin Love (RBC) [Entitic vol]90.2 mVXfrwnq46.0-99.0The [facility] CenterComment on above:Performed By: #### BMP #### [facility] Laboratory [address] [place] [address] Dr. Gin Reyes #0.5 103/ulNormal0.3-0.8The [facility] CenterComment on above:Performed By: #### BMP #### [facility] Laboratory [address] [place] [address] Dr. Gin Mathiasocytes/100 WBC (Bld)6.7 %Normal1.7-12.0The [facility] Comment on above:Performed By: #### BMP #### [facility] Laboratory [address] [place] [address] Dr. Gin Romero #3.6 103/ulNormal1.4-6.5The [facility] CenterComment on above:Performed By: #### BMP #### [facility] Laboratory [address] [place] [address] Dr. Gin Boutrophils/100 WBC (Bld)51.1 %Crkpya16.0-75.0The [facility] CenterComment on above:Performed By: #### BMP #### [facility] Laboratory [address] [place] [address] Dr. Gin Gamble mean volume (Bld) [Entitic vol]9.6 fLNormal9.5-13.5The [facility] CenterComment on above:Performed By: #### BMP #### [facility] Laboratory [address] [place] [address] Dr. Gin ChewPLT337 103/ivZwkpqf709-158Ezh [facility] CenterComment on above: Performed By: #### BMP #### [facility] Laboratory [address] [place] [address] Dr. Gin ChweRBC4.39 106/ulNormal4.20-5.40The [facility] CenterComment on above:Performed By: #### BMP #### [facility] Laboratory [address] [place] [address] Dr. Gin ChewWBC7.0 103/ulNormal4.0-11.0The [facility] CenterComment on above: Performed By: #### BMP #### [facility] Laboratory [address] [place] [address] Dr. Gin Baldwin URINEon [id number] URINECulture Observations: MODERATE GROWTH OF MIXED GENITAL ELOINA. NO POTENTIAL PATHOGENS SEEN.NormalThe [facility] CenterComment on above:Performed By: #### A1C #### [facility] Laboratory [address] [place] [address] Dr. Gin Crawford T3on 94-25-9368WOTS T32.10 pg/mlLCritically low2.18-3.98The [facility] CenterComment on above:Performed By: #### FT3, CMP, LIPID, TSH #### [facility] Laboratory [address] [place] [address] Dr. Gin Crawford T4on 53-40-0406Dpmu T4 [Mass/Vol]1.56 ng/dLCritically high 0.76-1.46The [facility] CenterComment on above:Performed By: #### FT4, VITAD #### [facility] Laboratory [address] [place], [place] [id number] Dr. Gin ChewGLYCOHEMOGLOBIN A1Con [id number] RECOMMENDATIONSEE BELOWKettering HealthComment on above:Result Comment: ADA RECOMMENDED LIMIT 4.0 - 6.0 ADA THERAPEUTIC TARGET < 7.0 ACTION SUGGESTED > 7.0Performed By: #### A1C #### [facility] [address] [place] [address] Dr. Gin ChewGlucose [Mass/Vol]134 mg/dLNoTrinity Health System East CampusComment on above:Performed By: #### A1C #### [facility] Laboratory [address] [place] [address] Dr. Gin ChewHbA1c (Bld) [Mass fraction]6.3 %Critically high4.5-6.2The [facility] CenterComment on above:Performed By: #### A1C #### [facility] Laboratory [address] [place] [address] Dr. Gin ChewLIPID PROFILEon [id number]-HDL RATIO NORMSEE BELOWSt. Mary's Medical Center, Ironton CampusComment on above:Result Comment: 3.3 - 4.4 LOW RISK 4.4 - 7.1 AVERAGE RISK 7.1 - 11.0 MODERATE RISK >11.0 HIGH RISKPerformed By: #### FT3, CMP, LIPID, TSH #### [facility] [address] [place] [address] Dr. Gin ChewCholesterol [Mass/Vol]190 mg/dLNormal<=200The [facility] Comment on above:Performed By: #### FT3, CMP, LIPID, TSH #### [facility] Laboratory [address] [place] [address] Dr. Gin ChewCholesterol in HDL [Mass/Vol]76 mg/dLCritically oase12-61Nnn [facility] CenterComascension [facility] on above:Performed By: #### FT3, CMP, LIPID, TSH #### [facility] Laboratory [address] [place] [address] Dr. Gin ChewCholesterol in LDL [Mass/Vol]98.4 mg/dLNoTrinity Health System East CampusComment on above:Performed By: #### FT3, CMP, LIPID, TSH #### [facility] Laboratory [address] [address] [address] Gin ChewCholesterol.total/Cholesterol in HDL [Mass ratio]2.5 {ratio} NormalThe [facility] Medical CenterComment on above:Performed By: #### FT3, CMP, LIPID, TSH #### [facility] Laboratory [address] [address] [address] Gin Mota NORMAL> or = 60 mg/dl - LOW CARDIOVASCULAR RISK <40 mg/dl - HIGH CARDIOVASCULAR RISKNoTrinity Health System East CampusComment on above:Performed By: #### FT3, CMP, LIPID, TSH #### [facility] Laboratory [address] [address] [address] Gin Andrews CALC NORMALSEE BELOWSt. Mary's Medical Center, Ironton CampusComment on above:Result Comment: <100 mg/dl OPTIMAL 100 - 129 mg/dl NEAR OR ABOVE OPTIMAL 130 - 159 mg/dl BORDERLINE HIGH 160 - 189 mg/dl HIGH >190 mg/dl VERY HIGH Performed By: #### FT3, CMP, LIPID, TSH #### [facility] [address] [address] [address] Gin ChewTriglyceride [Mass/Vol]78 mg/dLNormal<=150The [facility] Comment on above:Performed By: #### FT3, CMP, LIPID, TSH #### [facility] Laboratory [address] [address] [address] Gin ChewVLDL CALC15.6 mg/dLNormAvita Health System Ontario HospitalComment on above: Performed By: #### FT3, CMP, LIPID, TSH #### [facility] Laboratory [address] [address] [address] Gin ChewMICLISEALBUMIN, RAND URon 79-36-4334eDWT5.7 mg/LNormal<=30.0The [facility] CenterComment on above:Performed By: #### A1C #### [facility] [address] [address] [address] Gin ChewPROF 14(COMP METB)on 60-33-6253Lwqgqnu [Mass/Vol]4.0 g/dLNormal 3.4-5.0The [facility] CenterComment on above:Performed By: #### FT3, CMP, LIPID, TSH #### [facility] Laboratory [address] [place] [address] Dr. Gin ChewAlbumin/Globulin [Mass ratio]1.2 {ratio}NormalThe [facility] CenterComment on above:Performed By: #### FT3, CMP, LIPID, TSH #### [facility] Laboratory [address] [place] [address] Dr. Gin Cm [Catalytic activity/Vol]67 U/NPckgzh73-058Ata [facility] CenterComment on above:Performed By: #### FT3, CMP, LIPID, TSH #### [facility] Laboratory [address] [place] [address] Dr. Gin VerasT [Catalytic activity/Vol]25 U/WWhuynz37-65Eyv [facility] CenterComment on above:Performed By: #### FT3, CMP, LIPID, TSH #### [facility] Laboratory [address] [place] [address] Dr. Gin Hayes gap [Moles/Vol]12.2 mmol/LNormalBlanchard Valley Health System Comment on above:Performed By: #### FT3, CMP, LIPID, TSH #### [facility] Laboratory [address] [place] [address] Dr. Gin ChewAST [Catalytic activity/Vol]20 U/GVunxgu87-67Ccu Fort [facility] Hospitalment on above:Performed By: #### FT3, CMP, LIPID, TSH #### [facility] [address] [place] [address] Dr. Gin ChewBilirubin [Mass/Vol]0.4 mg/dLNormal0.2-1.0The [facility] Comment on above:Performed By: #### FT3, CMP, LIPID, TSH #### [facility] [address] [place] [address] Dr. Gin ChewCalcium [Mass/Vol]9.6 mg/dLNormal8.5-10.1[facility] Comment on above:Performed By: #### FT3, CMP, LIPID, TSH #### [facility] [address] [address] [address] Gin ChewChloride [Moles/Vol]103 mmol/PCdeeqm62-326Uln [facility] Comment on above:Performed By: #### FT3, CMP, LIPID, TSH #### [facility] Laboratory [address] [address] [address] Gin ChewCO2 [Moles/Vol]28.1 mmol/OCuakxu36.0-32.0The [facility] Comment on above:Performed By: #### FT3, CMP, LIPID, TSH #### [facility] Laboratory [address] [place] [address] Dr. Gin ChewCreatinine [Mass/Vol]0.64 mg/dLNormal0.55-1.02[facility] SystemComment on above:Performed By: #### FT3, CMP, LIPID, TSH #### [facility] [address] [address] [address] Gin ReganGFR-AF FILIPINO>60Normal>=60The [facility] CenterComment on above:Performed By: #### FT3, CMP, LIPID, TSH #### [facility] [address] [place] [address] Dr. Gin Catalan-NON AF FILIPINO>60Normal>=60[facility] SystemComment on above:Performed By: #### FT3, CMP, LIPID, TSH #### [facility] [address] [address] [address] Gin ChewGlobulin (S) [Mass/Vol]3.3 g/dLNormalThe [facility] CenterComment on above:Performed By: #### FT3, CMP, LIPID, TSH #### [facility] Laboratory [address] [place] [address] Dr. Gin ChewGlucose [Mass/Vol]98 mg/aCHkfsjl87-597ClpBlanchard Valley Health System Comment on above:Performed By: #### FT3, CMP, LIPID, TSH #### [facility] [address] [place] [address] Dr. Gin ChewPotassium [Moles/Vol]4.3 mmol/LNormal3.5-5.1The [facility] Comment on above:Performed By: #### FT3, CMP, LIPID, TSH #### [facility] Laboratory [address] [place] [address] Dr. Gin ChewProtein [Mass/Vol]7.3 g/dLNormal6.4-8.2The [facility] Comment on above:Performed By: #### FT3, CMP, LIPID, TSH #### [facility] Laboratory [address] [place] [address] Dr. Gin ChewSodium [Moles/Vol]139 mmol/DDixgdi648-531Rfu [facility] Comment on above:Performed By: #### FT3, CMP, LIPID, TSH #### [facility] [address] [place] [address] Dr. Gni ChewUrea nitrogen [Mass/Vol]21.0 mg/dLCritically high7.0-18.0The [facility] CenterComment on above:Performed By: #### FT3, CMP, LIPID, TSH #### [facility] [address] [address] [address] Gin Bennett nitrogen/Creatinine [Mass ratio]32.8 mg/mgNormalThe [facility] CenterComment on above:Performed By: #### FT3, CMP, LIPID, TSH #### [facility] Laboratory [address] [place] [address] Dr. Gin Shields 50-74-4857EKY0.200 uIU/mLNormal0.358-3.740[facility] SystemComment on above:Performed By: #### FT3, CMP, LIPID, TSH #### [facility] [address] [place] [address] Dr. Gin CARTER W/MICROSCOPICon 56-27-0276PRZMIXDSCBEO SEENNormalNONE SEENThe [facility] CenterComment on above:Performed By: #### FT3, CMP, LIPID, TSH #### [facility] [address] [place] [address] Dr. Yilan ChangBilirubin Ql (U)NegativeNormalNEGMount St. Mary Hospital Comment on above:Performed By: #### FT3, CMP, LIPID, TSH #### [facility] [address] [address] [address] Gin ChewCASTNONE SEENNormalNONE SEENBlanchard Valley Health SystemComment on above:Performed By: #### FT3, CMP, LIPID, TSH #### [facility] [address] [address] [address] Gin ChewClarity (U)CLEARNormalCLEARBlanchard Valley Health SystemComment on above: Performed By: #### FT3, CMP, LIPID, TSH #### [facility] Laboratory [address] [place] [address] Dr. Gin Tatelor (U)LT. YELLOWNormalYELLOWBlanchard Valley Health SystemComment on above:Performed By: #### FT3, CMP, LIPID, TSH #### [facility] [address] [address] [address] Gin ChewCrystals LM Nom (Urine sed)NONE SEENNormalNONE SEENBlanchard Valley Health SystemComment on above:Performed By: #### FT3, CMP, LIPID, TSH #### [facility] [address] [address] [address] Greenfield ChangEpithelial cells LM Ql (Urine sed)FEWAbnormalNONE SEEN /RAREBlanchard Valley Health SystemComment on above:Performed By: #### FT3, CMP, LIPID, TSH #### [facility] [address] [place] [address] Dr. Gin ChewGlucose Ql (U)NegativeNormalNEGATIVEBlanchard Valley Health SystemComment on above:Performed By: #### FT3, CMP, LIPID, TSH #### [facility] [address] [place] [address] Dr. Gin ChewHemoglobin Ql (U)NegativeNormalNEGATIVEBlanchard Valley Health System Comment on above:Performed By: #### FT3, CMP, LIPID, TSH #### [facility] [address] [place] [address] Dr. Gin Munguia Ql (U)NegativeNormalNEGATIVEThe [facility] CenterComment on above:Performed By: #### FT3, CMP, LIPID, TSH #### [facility] [address] [address] [address] Gin ChewLEUKOCYTESNegativeNormalNEGATIVEThe [facility] CenterComment on above:Performed By: #### FT3, CMP, LIPID, TSH #### [facility] [address] [address] [address] Gin Whitten SEENNormalNONE SEENBlanchard Valley Health SystemComment on above:Performed By: #### FT3, CMP, LIPID, TSH #### [facility] [address] [address] [address] Gin Muniz Ql (U)NegativeNormalNEGATIVEThe [facility] CenterComment on above:Performed By: #### FT3, CMP, LIPID, TSH #### [facility] [address] [address] [address] Gin Hagen (U)5.5 [pH]Normal5-9The [facility] CenterComment on above: Performed By: #### FT3, CMP, LIPID, TSH #### [facility] [address] [place] [address] Dr. Gin Blakely SEENAbnormal0-2The [facility] CenterComment on above: Performed By: #### FT3, CMP, LIPID, TSH #### [facility] [address] [address] [address] Gin ChewSPEC GRAVITY1.187Ewwhni1.005-<=1.025The [facility] CenterComment on above:Performed By: #### FT3, CMP, LIPID, TSH #### [facility] [address] [address] [address] Gin Westbrook PROTEINNegativeNormalNEGATIVE/ TRACEThe [facility] Comment on above:Performed By: #### FT3, CMP, LIPID, TSH #### [facility] [address] [address] [address] Gin Avila Qn (U)0.2 {David'U}/dLNormal0.2 - 1.0The [facility] Hospitalment on above:Performed By: #### FT3, CMP, LIPID, TSH #### [facility] [address] [place] [address] Dr. Gin Donovan SEENNormalNONE SEENBlanchard Valley Health SystemComment on above: Performed By: #### FT3, CMP, LIPID, TSH #### [facility] [address] [place] [address] Dr. Gin ChewVITAMIN D 25 OHon 16-64-3483YDK D 25-OH30.1 ng/mLNormalThe [facility] CenterComascension st[facility] on above:Performed By: #### FT4, VITAD #### [facility] [address] [place] [address] Dr. Gin Foster RANGESSEE Nationwide Children's HospitalComment on above: Result Comment: <20 ng/mL Vit D deficient 20 - <30 ng/mL Vit D insufficient 30 - 100 ng/mL Vit D sufficient >100 ng/mL Potential ToxicityPerformed By: #### FT4, VITAD #### [facility] [address] [place] [address] Dr. Gin Crawford T3on 16-38-1528GUTZ T32.83 pg/mlLNormal2.18-3.98The [facility] CenterComascension [facility] on above:Performed By: #### BMP #### [facility] [address] [place] [address] Dr. Gin Crawford T4on 38-16-2912Vhdd T4 [Mass/Vol]1.74 ng/dLCritically high 0.76-1.46The [facility] CenterComasc[facility] on above:Performed By: #### FT4 #### [facility] [address] [place] [address] Dr. Gin Shields 75-86-8821NTO6.235 uIU/mLCritically low0.358-3.740The [facility] HospitalComment on above:Performed By: #### BMP #### [facility] [address] [place] [address] Dr. Gin ChewXR CHEST 2 Von [id number] CHEST 2 VEXAMINATION: XR CHEST 2 V HISTORY: Cough COMPARISON: [...] Electronically authenticated by: JEFF PATHAK Date: 2021-11-29 21:03[facility] CampusCNPNon [id number] (ENDOSO) CANELO PATHAK ([id number]) 1965 F Date Time Provider Department 10/13/21 [...] Date Reviewed: 10/13/2021 Reviewed by: Anila Jimenez APRN.[employer] REPRESENT[employer]IVES - Fully Assessed Reason for Visit: Appointment [...] daily. - mometasone furoate(NASONEX 50 MCG/ACTUATION SPRAY) [place] twice in each nostril once daily. - [...] wi*10/11/2021 Encounter Status:Closed by ANILA JIMENEZ on 10/13/21NoalCMount St. [facility] W Auto Differential panel (Bld)on [id number] (Bld) [#/Vol] 0.07 10*3/uLNormal<0.11[facility] ClevelandComment on above:Order Comment: Specimen Type: BLOOD SPECIMENOrdering Facility: [facility] Address:[address] [place], [place] [address]Performed By: #### CMP, HBA1C, FREET3, FT4, TSH #### [address] [address] Wpdhqhsun/100 WBC (Bld)0.7 %NormalMarion Hospitalment on above:Order Comment: Specimen Type: BLOOD SPECIMENOrdering Facility: [facility] Address:[address] [place] [address] Performed By: #### CMP, HBA1C, FREET3, FT4, TSH #### [address] [address] Kmkalcjnoyqm cell count method Nom (Bld)AutoNormalCFirelands Regional Medical Center on above:Order Comment: Specimen Type: BLOOD SPECIMENOrdering Facility: [facility] Address:[address] [place], [place] [id number] By: #### CMP, HBA1C, FREET3, FT4, TSH #### [address] [address] Jbznmqgwapi (Bld) [#/Vol]0.29 10*3/uLNormal<0.46[facility] on above:Order Comment: Specimen Type: BLOOD SPECIMENOrdering Facility: [facility] Address:[address] [place], [place] [id number] By: #### CMP, HBA1C, FREET3, FT4, TSH #### [address] [address] Layjxuvdvlm/100 WBC (Bld)3.0 %[facility] Comment on above:Order Comment: Specimen Type: BLOOD SPECIMENOrdering Facility: [facility] Address:[address] [place] [address] Performed By: #### CMP, HBA1C, FREET3, FT4, TSH #### [address] [address] Acjnpmfdsjk distribution width (RBC) [Ratio]12.3 %Nsfznx58.5-15.0 [facility] on above:Order Comment: Specimen Type: BLOOD SPECIMENOrdering Facility: [facility] Address:[address] [place], [place] [address]Performed By: #### CMP, HBA1C, FREET3, FT4, TSH #### [address] [address] Tllgndhoxf (Bld) [Volume fraction]43.4 %Gaaanf40.0-46.0[facility] on above:Order Comment: Specimen Type: BLOOD SPECIMENOrdering Facility: [facility] Address:[address] [place], [place] [address]Performed By: #### CMP, HBA1C, FREET3, FT4, TSH #### [address] [address] Resjeosabn (Bld) [Mass/Vol]14.5 g/yXNvsmdb63.5-15.5CFirelands Regional Medical Center on above:Order Comment: Specimen Type: BLOOD SPECIMENOrdering Facility: [facility] Address:[address] [place], [place] [address]Performed By: #### CMP, HBA1C, FREET3, FT4, TSH #### [address] [address] OTJIDFAX GRAN %0.4 %NormalAshtabula General Hospital on above:Order Comment: Specimen Type: BLOOD SPECIMENOrdering Facility: [facility] Address:[address] [place], [place] [address]Performed By: #### CMP, HBA1C, FREET3, FT4, TSH #### [address] [address] MVUBAYFU GRAN ABS0.04 k/uLNormal<0.10[facility] Comment on above:Order Comment: Specimen Type: BLOOD SPECIMENOrdering Facility: [facility] Address:[address] [place] [address] Performed By: #### CMP, HBA1C, FREET3, FT4, TSH #### [address] [place] [address] Uicktgdalhn (Bld) [#/Vol]2.21 10*3/uLNormal1.00-4.00[facility] on above:Order Comment: Specimen Type: BLOOD SPECIMENOrdering Facility: [facility] Address:[address] [place], [place] [address]Performed By: #### CMP, HBA1C, FREET3, FT4, TSH #### [address] [place] [address] Pgswwbuvmdy/100 WBC (Bld)22.6 %NormalZanesville City Hospital Comment on above:Order Comment: Specimen Type: BLOOD SPECIMENOrdering Facility: [facility] Address:[address] [place] [address] Performed By: #### CMP, HBA1C, FREET3, FT4, TSH #### [place] [phone] (RBC) [Entitic mass]30.7 gdOjdnzq17.0-34.0[facility] on above:Order Comment: Specimen Type: BLOOD SPECIMENOrdering Facility: [facility] Address:[address] [place], [place] [id number] By: #### CMP, HBA1C, FREET3, FT4, TSH #### [place] [phone] (RBC) [Mass/Vol]33.4 g/nIFoproh17.5-36.0[facility] on above:Order Comment: Specimen Type: BLOOD SPECIMENOrdering Facility: [facility] Address:[address] [place], [place] [id number] By: #### CMP, HBA1C, FREET3, FT4, TSH #### [place] [address] LNN (RBC) [Entitic vol]91.9 oWGoggrs99.0-100.0[facility] on above:Order Comment: Specimen Type: BLOOD SPECIMENOrdering Facility: [facility] Address:[address] [place], [place] [id number] By: #### CMP, HBA1C, FREET3, FT4, TSH #### [place] [address] Msjqlypnb (Bld) [#/Vol]0.60 10*3/uLNormal<0.87[facility] on above:Order Comment: Specimen Type: BLOOD SPECIMENOrdering Facility: [facility] Address:[address] [place], [place] [id number] By: #### CMP, HBA1C, FREET3, FT4, TSH #### [place] [address] Gpxlgddys/100 WBC (Bld)6.1 %NormalAshtabula General Hospital on above:Order Comment: Specimen Type: BLOOD SPECIMENOrdering Facility: [facility] Address:[address] [place], [place] [id number] Performed By: #### CMP, HBA1C, FREET3, FT4, TSH #### [place] [address] Potcrklkxcg (Bld) [#/Vol]6.57 10*3/uLNormal1.45-7.50[facility] on above:Order Comment: Specimen Type: BLOOD SPECIMENOrdering Facility: [facility] Address:[address] [place], [place] [id number] By: #### CMP, HBA1C, FREET3, FT4, TSH #### [place] [address] Ffvjtizqegl/100 WBC (Bld)67.2 %NormalZanesville City Hospital Comment on above:Order Comment: Specimen Type: BLOOD SPECIMENOrdering Facility: [facility] Address:[address] [place] [address] Performed By: #### CMP, HBA1C, FREET3, FT4, TSH #### [place] [address] Xmrgfimyy RBC (Bld) [#/Vol]10*3/uLNormal<0.01[facility] on above:Order Comment: Specimen Type: BLOOD SPECIMENOrdering Facility: [facility] Address:[address] [place], [place] [address]Performed By: #### CMP, HBA1C, FREET3, FT4, TSH #### [place] [address] Goedunhpv RBC/100 WBC (Bld) [Ratio]0.0 /100 WBCNormalCFirelands Regional Medical Center on above:Order Comment: Specimen Type: BLOOD SPECIMENOrdering Facility: [facility] Address:[address] [place], [place] [address]Performed By: #### CMP, HBA1C, FREET3, FT4, TSH #### [place] [address] Faosomze mean volume (Bld) [Entitic vol]10.4 fLNormal9.0-12.7 [facility] on above:Order Comment: Specimen Type: BLOOD SPECIMENOrdering Facility: [facility] Address:[address] [place], [place] [address]Performed By: #### CMP, HBA1C, FREET3, FT4, TSH #### [place] [address] Vtasvrbrj (Bld) [#/Vol]371 10*3/gCOndbuh461-450BigrvqkhtAshtabula General Hospital on above:Order Comment: Specimen Type: BLOOD SPECIMENOrdering Facility: [facility] Address:[address] [place], [place] [address]Performed By: #### CMP, HBA1C, FREET3, FT4, TSH #### [place] [address] SKH (Bld) [#/Vol]4.72 10*6/uLNormal3.90-5.20[facility] on above:Order Comment: Specimen Type: BLOOD SPECIMENOrdering Facility: [facility] Address:[address] [place], [place] [address]Performed By: #### CMP, HBA1C, FREET3, FT4, TSH #### [place] [phone] (Bld) [#/Vol]9.78 10*3/uLNormal3.70-11.00[facility] on above:Order Comment: Specimen Type: BLOOD SPECIMENOrdering Facility: [facility] Address:[address] [place], [place] [address]Performed By: #### CMP, HBA1C, FREET3, FT4, TSH #### [place] [address] Cnv Immature Gran0.04 k/uL<0.10 k/uLMartins Ferry HospitalBasophils (Bld) [#/Vol]0.07 10*3/uL<0.11 k/uLPipestone ClinicBasophils/100 WBC (Bld)0.7 % [facility] HospitalDifferential cell count method Nom (Bld)AutoCOhio State East Hospital Eosinophils (Bld) [#/Vol]0.29 10*3/uL<0.46 k/uLMartins Ferry HospitalEosinophils/100 WBC (Bld)3.0 %[facility] Ferry HospitalErythrocyte distribution width (RBC) [Ratio]12.3 % 11.5 - 15.0 %[facility] HospitalHematocrit (Bld) [Volume fraction]43.4 %36.0 - 46.0 %[facility] HospitalHemoglobin (Bld) [Mass/Vol]14.5 g/dL11.5 - 15.5 g/dLMartins Ferry HospitalImmature Gran %0.4 %[facility] HospitalLymphocytes (Bld) [#/Vol]2.21 10*3/uL 1.00 - 4.00 k/uLMartins Ferry HospitalLymphocytes/100 WBC (Bld)22.6 %[facility] MCH (RBC) [Entitic mass]30.7 pg26.0 - 34.0 pgClevelOur Lady of Mercy Hospital - AndersonMCHC (RBC) [Mass/Vol]33.4 g/dL30.5 - 36.0 g/dLMartins Ferry HospitalMCV (RBC) [Entitic vol]91.9 fL80.0 - 100.0 fLClevelunc health lenoir ClinicMonocytes (Bld) [#/Vol]0.60 10*3/uL<0.87 k/uL [facility] HospitalMonocytes/100 WBC (Bld)6.1 %[facility]erry HospitalNeutrophils (Bld) [#/Vol]6.57 10*3/uL1.45 - 7.50 k/uLMartins Ferry HospitalNeutrophils/100 WBC (Bld)67.2 %[facility] HospitalNucleated RBC (Bld) [#/Vol]10*3/uL<0.01 k/uLMartins Ferry Hospital Nucleated RBC/100 WBC (Bld) [Ratio]0.0 /100 WBCMartins Ferry HospitalPlatelet mean volume (Bld) [Entitic vol]10.4 fL9.0 - 12.7 fLClevelunc health lenoir ClinicPlatelets (Bld) [#/Vol]371 10*3/uL150 - 400 k/uLMartins Ferry HospitalRBC (Bld) [#/Vol]4.72 10*6/uL 3.90 - 5.20 m/uLMartins Ferry HospitalWBC (Bld) [#/Vol]9.78 10*3/uL3.70 - 11.00 k/uL [facility] HospitalCNOVon [id number] Visit (RHEUMN) CANELO PATHAK ([id number]) 1965 F Date Time Provider Department 10/07/21 [...] mcg (5,000 unit) cap - Vitamin D Penryn ([employer]) Take 1 capsule by mouth daily with food. - montelukast (SINGULAIR) 10 mg tablet Take 10 mg by mouth daily at bedtime. - MULTIVIT-MINERALS/FERROUS GLUC (CENTRAM-CARE ORAL) Take by mouth twice daily. - esomeprazole mag trihydrate(NEXIUM 40 MG CAP) Take one(1) capsule daily. - mometasone furoate(NASONEX 50 MCG/ACTUATION SPRAY) [place] twice in each nostril once daily. - [...] Rivers Ma - Fully Assessed Primary Visit Diagnosis:Fibromyalgia [M79.7] Other Visit Diagnosis:ALDEN (generalized anxiety disorder) [F41.1] Order(s):CBC + DIFF [SQCBCDIF] Order #: [id number] FUTURE PROTEIN ELECTROPHORESIS SERUM W/INTERP [SQSEPG] Order #: [id number] FUTURE venlafaxine ER (EFFEXOR XR) 37.5 mg 24 hr capsuletake one a day, if tolerated after two weeks increase to twoDisp: 60 capsuleRfl: 3 CO (more content not included)...NormalZanesville City HospitalComprehensive metabolic 2000 panelon 61-46-1553Hddnwbn [Mass/Vol]4.8 g/dLNormal3.9-4.9 [facility] on above:Order Comment: Specimen Type: BLOOD SPECIMENOrdering Facility: [facility] Address:[address] [place], [place] [address]Performed By: #### CMP, HBA1C, FREET3, FT4, TSH #### [facility] [address] [place] [address] BES [Catalytic activity/Vol]72 U/WSfbnid48-965DbvlwqvkkAshtabula [facility] Hospital on above:Order Comment: Specimen Type: BLOOD SPECIMENOrdering Facility: [facility] Address:[address] [place], [place] [address]Performed By: #### CMP, HBA1C, FREET3, FT4, TSH #### [place] [address] CSY [Catalytic activity/Vol]24 U/LNormal7-38[facility] Clinic ClevelandComment on above:Order Comment: Specimen Type: BLOOD SPECIMENOrdering Facility: [facility] Address:[address] [place], [place] [address]Performed By: #### CMP, HBA1C, FREET3, FT4, TSH #### [place] [address] Emrgh gap [Moles/Vol]11 mmol/LNormal9-18[facility] Comment on above:Order Comment: Specimen Type: BLOOD SPECIMENOrdering Facility: [facility] Address:[address] [place] [address] Performed By: #### CMP, HBA1C, FREET3, FT4, TSH #### [place] [address] XRL [Catalytic activity/Vol]17 U/PKuxunx05-42ZdbokbjkiZanesville City HospitalComment on above:Order Comment: Specimen Type: BLOOD SPECIMENOrdering Facility: [facility] Address:[address] [place], [place] [address]Performed By: #### CMP, HBA1C, FREET3, FT4, TSH #### [place] [phone] [Mass/Vol]0.5 mg/dLNormal0.2-1.3CCleveland [facility] Comment on above:Order Comment: Specimen Type: BLOOD SPECIMENOrdering Facility: [facility] Address:[address] [place], [place] [address] Performed By: #### CMP, HBA1C, FREET3, FT4, TSH #### [place] [address] Hkwsqzr [Mass/Vol]10.3 mg/dLHigh8.5-10.2CCleveland Clinic [facility] Comment on above:Order Comment: Specimen Type: BLOOD SPECIMENOrdering Facility: [facility] Address:[address] [place] [address] Performed By: #### CMP, HBA1C, FREET3, FT4, TSH #### [address] [place] [address] Auyoeodx [Moles/Vol]100 mmol/POfsgbo41-213CihwihmagZanesville City Hospital Comment on above:Order Comment: Specimen Type: BLOOD SPECIMENOrdering Facility: [facility] Address:[address] [place] [address] Performed By: #### CMP, HBA1C, FREET3, FT4, TSH #### [place] [address] PV5 [Moles/Vol]28 mmol/VEhrbdv90-88CrddowyrpZanesville City HospitalComment on above:Order Comment: Specimen Type: BLOOD SPECIMENOrdering Facility: [facility] Address:[address] [place] [address] Performed By: #### CMP, HBA1C, FREET3, FT4, TSH #### [place] [address] Nqtlytitlz [Mass/Vol]0.70 mg/dLNormal0.58-0.96Zanesville City HospitalComment on above:Order Comment: Specimen Type: BLOOD SPECIMENOrdering Facility: [facility] Address:[address] [place], [place] [address]Performed By: #### CMP, HBA1C, FREET3, FT4, TSH #### [place] [address] NHXVOIOIN GLOMERULAR FILTRATION OXWA420 mL/min/1.73m???Normal>=60 [facility] on above:Order Comment: Specimen Type: BLOOD SPECIMENOrdering Facility: [facility] Address:[address] [place], [place] [address]Result Comment: Estimated Glomerular Filtration Rate (eGFR) is calculated using the 2020 CKD-EPI creatinine equation. This equation utilizes serum creatinine, sex, and age as parameters. The creatinine assay has traceable calibration to isotope dilution-mass spectrometry. Refer to KDIGO guidelines for clinical interpretation. In patients with unstable renal function, e.g. those with acute kidney injury, the eGFR may not accurately reflect actual GFR.Performed By: #### CMP, HBA1C, FREET3, FT4, TSH #### [place] [address] Fhudktb [Mass/Vol]124 mg/nGVxjx94-58VyfgrlirmZanesville City Hospital Comment on above:Order Comment: Specimen Type: BLOOD SPECIMENOrdering Facility: [facility] Address:[address] [place], [place] [id number] Result Comment: The [place] Diabetes Association (ADA) provides guidance for cutoff [...] Standards of Medical Care in Diabetes 2016, [place] [employer]. Diabetes Care. 2016.39(Suppl 1).Performed By: #### CMP, HBA1C, FREET3, FT4, TSH #### [place] [address] Wjahuopfz [Moles/Vol]4.1 mmol/LNormal3.7-5.1CCleveland Clinic Union HospitalComment on above:Order Comment: Specimen Type: BLOOD SPECIMENOrdering Facility: [facility] Address:[address] [place], [place] [id number] By: #### CMP, HBA1C, FREET3, FT4, TSH #### [place] [address] Hllmqre [Mass/Vol]7.3 g/dLNormal6.3-8.0[facility] Comment on above:Order Comment: Specimen Type: BLOOD SPECIMENOrdering Facility: [facility] Address:[address] [place], [place] [id number] Performed By: #### CMP, HBA1C, FREET3, FT4, TSH #### [address], [place] [address] Cinrhb [Moles/Vol]139 mmol/HSekmkp087-379VpidcongjZanesville City Hospital Comment on above:Order Comment: Specimen Type: BLOOD SPECIMENOrdering Facility: [facility] Address:[address] [place], [place] [id number] Performed By: #### CMP, HBA1C, FREET3, FT4, TSH #### [place] [address] Rxim nitrogen [Mass/Vol]18 mg/dLNormal7-21[facility] Comment on above:Order Comment: Specimen Type: BLOOD SPECIMENOrdering Facility: [facility] Address:[address] [place], [place] [address] Performed By: #### CMP, HBA1C, FREET3, FT4, TSH #### [place] [address] VRQ A1Con 73-00-5292Bmskdlo glucose Estimated from glycated hemoglobin (Bld) [Mass/Vol]160 mg/dLNormalCCleveland Clinic Union HospitalComment on above:Order Comment: Specimen Type: BLOOD SPECIMENOrdering Facility: [facility] Address:[address] [place], [place] [address]Result Comment: eAG: (Estimated average glucose) is a calculated value from HgbA1c and is small business representative of the average blood glucose level in the last 2-3 month period.Performed By: #### CMP, HBA1C, FREET3, FT4, TSH #### [place] [address] YeM9w (Bld) [Mass fraction]7.2 %High4.3-5.6CFirelands Regional Medical Center on above:Order Comment: Specimen Type: BLOOD SPECIMENOrdering Facility: [facility] Address:[address] [place], [place] [phone] Comment: [place] [employer] guidelines indicate that patients with HgbA1c in the range 5.7-6.4% are at increased risk for development of diabetes, and intervention by lifestyle modification may be beneficial. HgbA1c greater or equal to 6.5% is considered diagnostic of diabetes.Performed By: #### CMP, HBA1C, FREET3, FT4, TSH #### [place] [phone] ELECTROPHORESIS SERUM (P)on 46-38-3536Rwbvike [Mass/Vol]4.18 g/dLNormal3.37-4.23[facility] on above:Order Comment: Specimen Type: BLOOD SPECIMENOrdering Facility: [facility] Address:[address] [place], [place] [address]Performed By: #### CMP, HBA1C, FREET3, FT4, TSH #### [place] [phone] 1 globulin Elph [Mass/Vol]0.24 g/dLNormal0.18-0.31[facility] on above:Order Comment: Specimen Type: BLOOD SPECIMENOrdering Facility: [facility] Address:[address] [place], [place] [address]Performed By: #### CMP, HBA1C, FREET3, FT4, TSH #### [place] [phone] 2 globulin Elph [Mass/Vol]0.83 g/dLNormal0.52-0.97[facility] on above:Order Comment: Specimen Type: BLOOD SPECIMENOrdering Facility: [facility] Address:[address] [place], [place] [address]Performed By: #### CMP, HBA1C, FREET3, FT4, TSH #### [place] [phone] globulin Elph [Mass/Vol]1.21 g/dLNormal0.84-1.36[facility] on above:Order Comment: Specimen Type: BLOOD SPECIMENOrdering Facility: [facility] Address:[address] [place], [place] [address]Performed By: #### CMP, HBA1C, FREET3, FT4, TSH #### [place] [address] Mxaxm globulin Elph (Body fld) [Mass fraction]0.74 g/dLNormal 0.70-1.44[facility] on above:Order Comment: Specimen Type: BLOOD SPECIMENOrdering Facility: [facility] Address:[address] [place], [place] [address]Performed By: #### CMP, HBA1C, FREET3, FT4, TSH #### [place] [address] A-PROTEIN LOCATIONNormalCFirelands Regional Medical Center on above: Order Comment: Specimen Type: BLOOD SPECIMENOrdering Facility: [facility] Address:[address] [place], [place] [address]Result Comment: Not Applicable.Performed By: #### CMP, HBA1C, FREET3, FT4, TSH #### [place] [address] Ssuwdbp Fractions [Interp]No definitive M protein is identified on protein electrophoresis.NormalNo definitive M protein is identified on protein electrophoresis.[facility] on above:Order Comment: Specimen Type: BLOOD SPECIMENOrdering Facility: [facility] Address:[address] [place], [place] [address]Performed By: #### CMP, HBA1C, FREET3, FT4, TSH #### [place] [address] Uedkbed.monoclonal Elph [Mass/Vol]0.00 g/dLNormal<=0.00[facility] on above:Order Comment: Specimen Type: BLOOD SPECIMENOrdering Facility: [facility] Address:[address] [place], [place] [address]Performed By: #### CMP, HBA1C, FREET3, FT4, TSH #### [place] [address] MAZ STAFF REVIEWReviewed by Ginette Doyle MDNormalCFirelands Regional Medical Center on above:Order Comment: Specimen Type: BLOOD SPECIMENOrdering Facility: [facility] Address:[address] [place], [place] [address]Performed By: #### CMP, HBA1C, FREET3, FT4, TSH #### [place] [address] Mkqj SerPl-mCncon 59-05-6519Ypqtooi [Mass/Vol]7.2 g/dLNormal6.3-8.0 [facility] on above:Order Comment: Specimen Type: BLOOD SPECIMEN [facility] Address: [address] [place], [place] [address]Performed By: #### 2885-2 #### [facility] CLIA [id number] [address] [place], [place] [address]T3 FREE BLDon [id number] T3 [Mass/Vol]3.1 pg/mLNormal2.3-4.1CFirelands Regional Medical Center on above: Order Comment: Specimen Type: BLOOD SPECIMENOrdering Facility: [facility] Address:[address] [place], [place] [address]Performed By: #### CMP, HBA1C, FREET3, FT4, TSH #### [place] [phone] FREE/FREE THYROXon 73-96-0534Qkuq T4 [Mass/Vol]2.5 ng/dLHigh 0.9-1.7CFirelands Regional Medical Center on above:Order Comment: Specimen Type: BLOOD SPECIMENOrdering Facility: [facility] Address:[address] [place], [place] [address]Performed By: #### CMP, HBA1C, FREET3, FT4, TSH #### [place] [phone] SerPl-aCncon 30-90-3088VDV Qn0.228 m[IU]/LLow0.270-4.[address] [address] [facility] on above:Order Comment: Specimen Type: BLOOD SPECIMENOrdering Facility: [facility] Address:[address] [place] [address]Qztfowspy By: #### CMP, HBA1C, FREET3, FT4, TSH #### [facility] Alejandra Smith [place], [place] [address] LUWEct [id number] (ENDOMN) CANELO PATHAK ([id number]) 1965 F Date Time Provider Department 10/03/21 ASAD ANSARI During your visit today, we recorded the following information about you: Renea Mcfarland Graphics Coordinator 10/03/2021 3:05 PM Addendum Patient called in [...] Fully Assessed Reason for Visit: Lab Orders [0748] Primary Visit Diagnosis:Acquired hypothyroidism [E03.9] Other Visit Diagnosis:Controlled type 2 diabetes mellitus without complication, without long-term current use of insulin (HCC) [E11.9] Order(s):TSH BLD [SQTSH] Order #: [id number] FUTURE T4 FREE/FREE THYROX [SQFT4] Order #: [id number] FUTURE T3 FREE BLD [SQFREET3] Order #: [id number] FUTURE COMP METABOLIC PANEL [SQCMP] Order #: [id number] FUTURE HGB A1C [YEIEO7V] Order #: [id number] FUTURE Prescriptions as of 10/05/2021 - metFORMIN ER (GLUCOPHAGE XR) 500 mg 24 hr tablet Take 2 tablets by mouth twice daily. - levothyroxine (SYNTHROID) 112 mcg tablet Take 2 tablets by mouth once daily. - cyclobenzaprine (FLEXERIL) 10 mg tablet - Cholecalciferol, Vitamin D3, 125 mcg (5,000 unit) cap - Vitamin D Penryn ([employer]) Take 1 capsule by mouth daily with food. - montelukast (SINGULAIR) 10 mg tablet Take 10 mg by mouth daily at bedtime. - MULTIVIT-MINERALS/FERROUS GLUC (CENTRAM-CARE ORAL) Take by mouth twice daily. - esomeprazole mag trihydrate(NEXIUM 40 MG CAP) Take one(1) capsule daily. - mometasone furoate(NASONEX 50 MCG/ACTUATION SPRAY) [place] twice in each nostril once daily. - cetirizine hcl(ZYRTEC 10 MG TAB) Take one(1) tablet daily. - fluticasone/salmeterol(ADVAIR DISKUS 250 MCG-50 MCG/DOSE FOR INHALATION) Take one(1) inhalation twice daily; rinse and gargle mouth with water after each use. 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 Gin Jesus.MB [Mass/Vol]0.66 ng/mLNormal<=3.60[facility] Comment on above:Performed By: #### FT3, CMP, LIPID, TSH #### [facility] [address] [place] [address] [address] Gin ChewHSTROP6.4 pg/mLNormal4.0-51.3The [facility] CenterComment on above:Result Comment: CUT-OFF POINTS HAVE BEEN ESTABLISHED BASED ON THE FOURTH UNIVERSAL DEFINITIONS OF MYOCARDIAL INFARCTION. THE UPPER REFERENCE LIMIT (URL) OF TROPONIN, DEFINED THE 99TH PERCENTILE OF cTnI DISTRIBUTION IN A REFERENCE POPULATION, HAS BEEN CONFIRMED THE DECISION THRESHOLD FOR [place] DIAGNOSIS.Performed By: #### FT3, CMP, LIPID, TSH #### [facility] [address] [place] [address] [address] Gin CliftonO28 ng/mLNormal9-82The [facility] CenterComment on above: Performed By: #### FT3, CMP, LIPID, TSH #### [facility] [address] [place] [address] [address] Gin Salter AUTO DIFFon [id number] #0.1 103/ulNormal0.0-0.1The [facility] CenterComment on above:Performed By: #### A1C #### [facility] [address] [address] [address] Gin Xiesophils/100 WBC (Bld)0.7 %Normal0.2-2.0[facility] Comment on above:Performed By: #### A1C #### [facility] [address] [place] [address] Dr. Gin Carlton #0.5 103/ulNormal0.0-0.7The [facility] CenterComment on above: Performed By: #### A1C #### [facility] [address] [place] [address] Dr. Gin Reganosinophils/100 WBC (Bld)4.4 %Normal0.9-7.0[facility] Comment on above:Performed By: #### A1C #### [facility] [address] [place] [address] Dr. Gin Reganrythrocyte distribution width (RBC) [Ratio]12.7 %Xhgxvl80.0-15.0 The [facility] CenterComment on above:Performed By: #### A1C #### [facility] [address] [place] [address] Dr. Gin ChewHematocrit (Bld) [Volume fraction]42.2 %Kferri93.0-48.0The [facility] CenterComment on above:Performed By: #### A1C #### [facility] [address] [place] [address] Dr. Gin ChewHemoglobin (Bld) [Mass/Vol]14.1 g/jNBzvomk59.0-16.0The [facility] CenterComment on above:Performed By: #### A1C #### [facility] [address] [place] [address] Dr. Gin Harris #0.10 10e3/ulCritically high0.00-0.03The [facility] Comment on above:Performed By: #### A1C #### [facility] [address] [place] [address] Dr. Gin Harris %0.9 %Critically high0.0-0.5The [facility] CenterComment on above:Performed By: #### A1C #### [facility] [address] [place] [address] Dr. Gin Girard #3.4 103/ulNormal1.2-3.8The [facility] CenterComment on above:Performed By: #### A1C #### [facility] [address] [place] [address] Dr. Yilan ChangLymphocytes/100 WBC (Bld)29.9 %Lhwbpy51.5-60.0The [facility] CenterComment on above:Performed By: #### A1C #### [facility] [address] [place] [address] Dr. Gin Jones DIFF REQNONormalThe [facility] Medical CenterComment on above: Performed By: #### A1C #### [facility] [address] [place] [address] Dr. Gin Love (RBC) [Entitic mass]31.0 loDlccxv84.7-34.0The [facility] CenterComment on above:Performed By: #### A1C #### [facility] [address] [place] [address] Dr. Gin Love (RBC) [Mass/Vol]33.4 g/oGOskfda38.9-35.2The [facility] CenterComment on above:Performed By: #### A1C #### [facility] [address] [place] [address] Dr. Gin Love (RBC) [Entitic vol]92.7 uHIuauvz06.0-99.0The [facility] CenterComment on above:Performed By: #### A1C #### [facility] [address] [place] [address] Dr. Gin Reyes #0.7 103/ulNormal0.3-0.8The [facility] CenterComment on above:Performed By: #### A1C #### [facility] [address] [place] [address] Dr. Gin Mathiasocytes/100 WBC (Bld)6.5 %Normal1.7-12.0The [facility] Comment on above:Performed By: #### A1C #### [facility] [address] [place] [address] Dr. Gin Romero #6.5 103/ulNormal1.4-6.5The [facility] CenterComment on above:Performed By: #### A1C #### [facility] [address] [place] [address] Dr. Gin Boutrophils/100 WBC (Bld)57.6 %Ggmdje23.0-75.0The [facility] CenterComment on above:Performed By: #### A1C #### [facility] [address] [address] [address] Gin ChewPlatelet mean volume (Bld) [Entitic vol]10.1 fLNormal9.5-13.5The [facility] CenterComment on above:Performed By: #### A1C #### [facility] [address] [address] [address] Gin ChewPLT349 103/[id number] [facility] CenterComment on above: Performed By: #### A1C #### [facility] [address] [place] [address] Dr. Gin ChewRBC4.55 106/ulNormal4.20-5.40The [facility] CenterComment on above:Performed By: #### A1C #### [facility] [address] [place] [address] Dr. Gin ChewWBC11.3 103/ulCritically high4.0-11.0The [facility] CenterComment on above:Performed By: #### A1C #### [facility] [address] [place] [address] Dr. Gin ChewCT ABD/PELVIS WO CONon [id number] ABD/PELVIS WO CONEXAMINATION: CT ABD/PELVIS WO CON, 09/28/2021 9:54 AM [...] Electronically authenticated by: JEFF PATHAK Date: 2021-09-28 10:31[facility] CampusPOINT OF CARE GLUCOSEon [id number] [Mass/Vol]129 mg/dL Critically qacs41-670Bhb [facility] CenterComment on above:Performed By: #### FT3, CMP, LIPID, TSH #### [facility] [address] [address] [address] Gin ChewPROToshia 14(COMP METB)on 26-80-1122Dxmsowv [Mass/Vol]3.7 g/dLNormal 3.4-5.0The [facility] CenterComment on above:Performed By: #### FT3, CMP, LIPID, TSH #### [facility] [address] [place] [address] Dr. Gin ChewAlbumin/Globulin [Mass ratio]1.1 {ratio}NormalThe [facility] on above:Performed By: #### FT3, CMP, LIPID, TSH #### [facility] [address] [place] [address] Dr. Gin Cm [Catalytic activity/Vol]79 U/PAzjuod09-825Kpl [facility] on above:Performed By: #### FT3, CMP, LIPID, TSH #### [facility] [address] [place] [address] Dr. Gin Vera [Catalytic activity/Vol]28 U/FFndlbb15-36Edm [facility] on above:Performed By: #### FT3, CMP, LIPID, TSH #### [facility] [address] [place] [address] Dr. Gin Hayes gap [Moles/Vol]9.9 mmol/LNormalThe [facility] Hospitalment on above:Performed By: #### FT3, CMP, LIPID, TSH #### [facility] [address] [address] [address] Gin ChewAST [Catalytic activity/Vol]15 U/YHqyfcd92-54Qjw [facility] CenterComment on above:Performed By: #### FT3, CMP, LIPID, TSH #### [facility] [address] [address] [address] Gin ChewBilirubin [Mass/Vol]0.3 mg/dLNormal0.2-1.0The [facility] Comment on above:Performed By: #### FT3, CMP, LIPID, TSH #### [facility] [address] [address] [address] Gin ChewCalcium [Mass/Vol]9.2 mg/dLNormal8.5-10.1The [facility] Comment on above:Performed By: #### FT3, CMP, LIPID, TSH #### [facility] [address] [place] [address] Dr. Gin ChewChloride [Moles/Vol]100 mmol/XMfwyvb13-098Ufx [facility] Comment on above:Performed By: #### FT3, CMP, LIPID, TSH #### [facility] [address] [address] [address] Gin ChewCO2 [Moles/Vol]32.1 mmol/LCritically high21.0-32.0The [facility] CenterComment on above:Performed By: #### FT3, CMP, LIPID, TSH #### [facility] [address] [place] [address] Dr. Gin ChewCreatinine [Mass/Vol]0.75 mg/dLNormal0.55-1.02The [facility] CenterComment on above:Performed By: #### FT3, CMP, LIPID, TSH #### [facility] [address] [place] [address] Dr. Gin Catalan-AF FILIPINO>60Normal>=60The [facility] CenterComment on above:Performed By: #### FT3, CMP, LIPID, TSH #### [facility] [address] [place] [address] Dr. Yilan ChangEGFR-NON AF FILIPINO>60Normal>=60The [facility] CenterComment on above:Performed By: #### FT3, CMP, LIPID, TSH #### [facility] [address] [address] [address] Gin ChewGlobulin (S) [Mass/Vol]3.4 g/dLNormAvita Health System Ontario HospitalComment on above:Performed By: #### FT3, CMP, LIPID, TSH #### [facility] [address] [address] [address] Gin ChewGlucose [Mass/Vol]138 mg/dLCritically zkji03-951Cxi [facility] Hospitalment on above:Performed By: #### FT3, CMP, LIPID, TSH #### [facility] [address] [address] [address] Gin ChewPotassium [Moles/Vol]4.0 mmol/LNormal3.5-5.1The [facility] Comment on above:Performed By: #### FT3, CMP, LIPID, TSH #### [facility] [address] [address] [address] Gin ChewProtein [Mass/Vol]7.1 g/dLNormal6.4-8.2The [facility] Comment on above:Performed By: #### FT3, CMP, LIPID, TSH #### [facility] [address] [address] [address] Gin ChewSodium [Moles/Vol]138 mmol/VBfufqw009-419Ibz [facility] Comment on above:Performed By: #### FT3, CMP, LIPID, TSH #### [facility] [address] [address] [address] Gin ChewUrea nitrogen [Mass/Vol]17.0 mg/dLNormal7.0-18.0The [facility] CenterComment on above:Performed By: #### FT3, CMP, LIPID, TSH #### [facility] [address] [address] [address] Gin ChewUrea nitrogen/Creatinine [Mass ratio]22.7 mg/mgNormalThe [facility] Beach HospitalComment on above:Performed By: #### FT3, CMP, LIPID, TSH #### [facility] [address] [place] [address] Dr. Gin ChewPROTIMEon 73-45-5124LNM Coag (PPP) [Relative time]0.94 {INR} NormalOhioHealth Doctors Hospital on above:Performed By: #### BMP #### [facility] [address] [place] [address] Dr. Gin ChewINLinda GUIDELINESSEE BELOWSt. Mary's Medical Center, [place] CampusComment on above:Result Comment: DESIRED INR: 2.0 - 3.0 CONDITIONS NOT LISTED BELOW 2.5 - 3.5 FOR PROSTHETIC HEART VALVE REPLACEMENT 2.5 - 3.5 RECURRENT THROMBOSIS Performed By: #### BMP #### [facility] [address] [place] [address] Dr. Gin ChewPT Coag (PPP) [Time]10.2 sNormal9.0-11.6The [facility] Comment on above:Performed By: #### BMP #### [facility] [address] [place] [address] Dr. Gin ChewPTKehinde 26-79-0694oPQB Coag (Bld) [Time]26.9 vCnukjh94.3-36.2The [facility] on above:Performed By: #### BMP #### [facility] [address] [place] [address] Dr. Gin Quiroz, HIGH SENSITIVITYon 19-81-2274GYRSAB8.3 pg/mLNormal 4.0-51.3The [facility] on above:Result Comment: CUT-OFF POINTS HAVE BEEN ESTABLISHED BASED ON THE FOURTH UNIVERSAL DEFINITIONS OF MYOCARDIAL INFARCTION. THE UPPER REFERENCE LIMIT (URL) OF TROPONIN, DEFINED THE 99TH PERCENTILE OF cTnI DISTRIBUTION IN A REFERENCE POPULATION, HAS BEEN CONFIRMED THE DECISION THRESHOLD FOR [place] DIAGNOSIS.Performed By: #### BMP #### [facility] [address] [place] [address] Dr. Gin ChewXR CHEST 1 Von [id number] CHEST 1 VEXAMINATION: XR CHEST 1 V HISTORY: CHEST PAIN, [...] Electronically authenticated by: JEFF PATHAK Date: 2021-09-28 09:20[facility] [id number] (ENDOMN) CANELO PATHAK ([id number]) 1965 F Date Time Provider Department 07/21/21 ASAD ANSARI ENDOMN During your visit today, we recorded the [...] to please review allergies and [facility] they are correct. Allergies [...] mcg (5,000 unit) cap - Vitamin D Penryn (iFlexMe for Eduora) Take 1 capsule by mouth daily with food. - montelukast (SINGULAIR) 10 mg tablet Take 10 mg by mouth daily at bedtime. - MULTIVIT-MINERALS/FERROUS GLUC (CENTRAM-CARE ORAL) Take by mouth twice daily. - esomeprazole mag trihydrate(NEXIUM 40 MG CAP) Take one(1) capsule daily. - mometasone furoate(NASONEX 50 MCG/ACTUATION SPRAY) Marianna twice in each nostril once daily. - cetirizine hcl(ZYRTEC 10 MG TAB) Take one(1) tablet daily. - fluticasone/salmeterol(ADVAIR DISKUS 250 MCG-50 MCG/DOSE FOR INHALATION) Take one(1) inhalation twice daily; rinse and gargle mouth with water after each use. 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 HospitalKristin [id number] (ENDOMN) FRANCISCOCANELO ([id number]) 1965 F Date Time Provider Department 06/22/21 ASAD ANSARI During your visit today, we recorded the following information about you: Neema Gastelumtrenton Adm 06/22/2021 9:10 AM Signed Patient called in requesting the results of her labs that she had completed on 06/16/2021 Canelo can be reached at [phone] (c) or can be reached through [employer]. Allergies As of Date: 06/22/2021 Noted Allergy [...] Fully Assessed Reason for Visit: Patient Question [2507] Prescriptions as of 05/10/2022 - levothyroxine (SYNTHROID) [...] daily. - mometasone furoate(NASONEX 50 MCG/ACTUATION SPRAY) Marianna twice in each nostril once daily. - [...] 12/16/2018 Encounter Status:Closed by NEEMA HIGGINBOTHAM on 05/10/22NoMercy Health Defiance HospitalTal [id number] Visit (ENDOMN) CANELO PATHAK ([id number]) 1965 F Date Time Provider Department 06/16/21 1:20 PM ASAD ANSARI During your visit today, we recorded the following information about you: Pulse Blood pressure Weight 87/minute 168/97 128.7 kg Aracelis Rivers Ma 06/16/2021 12:23 PM Signed Thank you for choosing the [facility] Department of Endocrinology, Diabetes and Metabolism. Did you know that you need to call 48 hours in advance of your scheduled visit, if you are unable to make your appointment? The [facility] Met[facility] [place] thanks you for your commitment, because patients not showing to their appointment results in a lost opportunity for patients to receive [facility] care at the [facility]. To Cancel an appointment, please choose one of the following: - Call the Appointment Call Center at [phone] - From [employer], Go to Appointments ? Cancel Appts If cancelling, consider your need to reschedule to prevent further delays in your care. To Schedule an appointment, please choose one of the following: - Call the Appointment Call Center at [phone] - From [employer], Go to Appointments ? Request an Appt Asad Ansari MD 06/16/2021 1:56 PM Signed Last Visit: This is the first visit. Ms. Pathak is here for follow up regarding her DM Type 2 and hypothyroidism. Current Immunizations: Most Recent Immunizations Administered Date(s) Administered COVID-19 vaccine, age 12+ yr (Boracci - PURPLE TOP) 09/23/2020 PHYSICAL EXAMINATION: BP [...] mouth daily before breakfast. - Vitamin D Penryn (iFlexMe for Eduora) Take 1 capsule by mouth daily with food. - montelukast (SINGULAIR) 10 mg tablet Take 10 mg by mouth daily at bedtime. - MULTIVIT-MINERALS/FERROUS GLUC (CENTRAM-CARE ORAL) Take by mouth twice daily. - esomeprazole mag trihydrate(NEXIUM 40 MG CAP) Take one(1) capsule daily. - mometasone furoate(NASONEX 50 MCG/ACTUATION SPRAY) Marianna twice in each nostril once daily. - [...] focal signs. No tremors. (more content not included)...NormalCincinnati [facility] Metabolic Panelon 49-46-7933Twjocyj [Mass/Vol]4.6 g/dL Normal3.9-4.9CCleveland Clinic Union HospitalComment on above:Performed By: #### CMP, HBA1C, FREET3, FT4, TSH #### [address] [address] XSZ [Catalytic activity/Vol]83 U/CPmnhlw18-263EvzmngmucAshtabula General Hospital on above:Performed By: #### CMP, HBA1C, FREET3, FT4, TSH #### [address] [phone] [Catalytic activity/Vol]28 U/LNormal7-38[facility] HospitalComment on above:Performed By: #### CMP, HBA1C, FREET3, FT4, TSH #### [address] [phone] gap [Moles/Vol]12 mmol/LNormal9-18[facility] Comment on above:Performed By: #### CMP, HBA1C, FREET3, FT4, TSH #### [address] [phone] [Catalytic activity/Vol]25 U/REawpyz00-75YqbxvoygxAshtabula General Hospital on above:Performed By: #### CMP, HBA1C, FREET3, FT4, TSH #### [address] [phone] [Mass/Vol]0.4 mg/dLNormal0.2-1.3CCleveland Clinic Union Hospital Comment on above:Performed By: #### CMP, HBA1C, FREET3, FT4, TSH #### [address] [address] Qcgnodh [Mass/Vol]10.0 mg/dLNormal8.5-10.2CCleveland Clinic Union Hospital Comment on above:Performed By: #### CMP, HBA1C, FREET3, FT4, TSH #### [address] [address] Gdvwyblv [Moles/Vol]102 mmol/RYhvzod24-227TojsfbfcwZanesville City Hospital Comment on above:Performed By: #### CMP, HBA1C, FREET3, FT4, TSH #### [address] [address] RP9 [Moles/Vol]27 mmol/MVvezmc43-60RuewsakzfZanesville City HospitalComment on above:Performed By: #### CMP, HBA1C, FREET3, FT4, TSH #### [address] [address] Nexxpkieir [Mass/Vol]0.74 mg/dLNormal0.58-0.96[facility] City HospitalComment on above:Performed By: #### CMP, HBA1C, FREET3, FT4, TSH #### [address] [address] yTWR- Amer.>60NormalCCleveland Clinic Union HospitalComment on above:Performed By: #### CMP, HBA1C, FREET3, FT4, TSH #### [address] [address] qXRE-All Other Races>60NormalCCleveland Clinic Union HospitalComascension st. john hospital on above:Result Comment: eGFR (Estimated GFR) Units of measure: [...] visit the National Kidney Foundation website at kidney.org/professiona ls/kdoqi/gfr_calculator.Performed By: #### CMP, HBA1C, FREET3, FT4, TSH #### [facility] [employer] [address] [place], [place] [address] Plnntgy [Mass/Vol]106 mg/lXSqzz62-54RdwgljbzsZanesville City Hospital Comment on above:Result Comment: The [place] Diabetes Association (ADA) provides guidance for cutoff [...] Standards of Medical Care in Diabetes 2016, [place] Diabetes Association. Diabetes Care. 2016.39(Suppl 1).Performed By: #### CMP, HBA1C, FREET3, FT4, TSH #### [facility] [employer] [address] [place], [place] [address] Lvmviqehy [Moles/Vol]3.9 mmol/LNormal3.7-5.1CCleveland Clinic Union HospitalComment on above:Performed By: #### CMP, HBA1C, FREET3, FT4, TSH #### [facility] [employer] [address] [place], [place] [address] Ceasebw [Mass/Vol]7.2 g/dLNormal6.3-8.0[facility] Comment on above:Performed By: #### CMP, HBA1C, FREET3, FT4, TSH #### [address] [address] Nqdiyq [Moles/Vol]141 mmol/ZSbqvdm317-053NhecyuhglZanesville City Hospital Comment on above:Performed By: #### CMP, HBA1C, FREET3, FT4, TSH #### [address] [address] Rvdd nitrogen [Mass/Vol]15 mg/dLNormal7-21[facility] Comment on above:Performed By: #### CMP, HBA1C, FREET3, FT4, TSH #### [address] [address] Djet T3on 10-25-8818Uwdw T3 [Mass/Vol]2.8 pg/mLNormal2.3-4.1 [facility] HospitalComment on above:Performed By: #### CMP, HBA1C, FREET3, FT4, TSH #### [address] [address] Buax T4on 69-66-2138Evoy T4 [Mass/Vol]2.0 ng/dLHigh0.9-1.7CCleveland Clinic Union HospitalComment on above:Performed By: #### CMP, HBA1C, FREET3, FT4, TSH #### [address] [address] Kwaufdfhat A1con 99-49-1171Rmvivce [Mass/Vol]169 mg/dLNormal [facility] HospitalComascension st[facility] on above:Result Comment: eAG: (Estimated average glucose) is a calculated value from HgbA1c and is small business representative of the average blood glucose level in the last 2-3 month period.Performed By: #### CMP, HBA1C, FREET3, FT4, TSH #### [address] [address] KjC5e (Bld) [Mass fraction]7.5 %High4.3-5.6CFirelands Regional Medical Center on above:Result Comment: [place] Diabetes Association guidelines indicate that patients with HgbA1c in the range 5.7-6.4% are at increased risk for development of diabetes, and intervention by lifestyle modif ication may be beneficial. HgbA1c greater or equal to 6.5% is considered diagnostic of diabetes.Performed By: #### CMP, HBA1C, FREET3, FT4, TSH #### [facility] [employer] [address] [place], [place] [address] BPMqh 61-75-9598QBY Qn2.200 m[IU]/LNormal0.270-4.200[facility] on above:Performed By: #### CMP, HBA1C, FREET3, FT4, TSH #### [facility] [address] [place], [place] [address] [facility] BRAIN W WO CONTRASTon 82-99-6203YVS BRAIN W WO CONTRASTMRI BRAIN WITHOUT CONTRAST: CLINICAL HISTORY: G37.9 KNIFER UP demyelinating disease (HCC) ICD10, multiple headaches , [...] ethmoid sinuses. Mastoid air cells are clear. Theseventh and eighth nerve complexes and optic nerves [...] Signed by: Briana Rosas MD 09/26/18 Final resultNormalSwedish Medical Center Vital Signs Date TimeVital SignValuePerforming LeiyewegwMomdopnf10-88-8680 11:50-0400Body lezlyg708.1 cmDakorin Shanecassi DO Work Phone: [phone] [place], [place] 5004110-13-2025 11:50-0400 Body mass index (BMI) [Ratio]43.7 kg/k6Iyhid Gircassi DO Work Phone: [phone])[address] [place], [place] 5004110-13-2025 11:50-0400 Body lfycwfwdqid35.7 [degF]Jeff Jon DO Work Phone: [phone])[address] [place], [place] 5004110-13-2025 11:50-0400 Body vdryhd576.29 kgDavisergio Jon DO Work Phone: [phone])[address] [place], [place] 5004110-13-2025 11:50-0400 Diastolic blood dyxmddfy35 mm[Hg]Jeff Jon DO Work Phone: [phone])[address] [place], [place] 5004110-13-2025 11:50-0400 Heart rate85 /minDavisergio Jon DO Work Phone: [phone])[address] [place], [place] 5004110-13-2025 11:50-0400 SaO2% (BldA) [Mass fraction]99 %Jeff Jon DO Work Phone: [phone])[address] [place], [place] 5004110-13-2025 11:50-0400 Systolic blood sqmdjysg297 mm[Hg]Jeff Jon DO Work Phone: [phone])[address] [place], [place] 5004110-07-2025 11:15-0400 Diastolic blood fyropjzq53 mm[Hg]Jeff Jon DO Work Phone: [phone])[address] [place], [place] 5004110-07-2025 11:15-0400 Systolic blood iqslwrhi872 mm[Hg]Jeff Jon DO Work Phone: [phone])[address] [place], [place] 5004110-07-2025 10:48-0400 Body jbsrdy879.1 cmDavid Girvin DO Work Phone: [phone]10-07-2025 10:48-0400 Body mass index (BMI) [Ratio]43.7 kg/e2Zpneu Girvin DO Work Phone: 1(532)[address] [place], [place] 5004110-07-2025 10:48-0400 Body lfpperopbhv76.9 [degF]Jeff Jon DO Work Phone: 1(865)[address] [place], [place] 5004110-07-2025 10:48-0400 Body ybexej845.29 kgDavisergio Shanevin DO Work Phone: 1(887)[address] [place], [place] 5004110-07-2025 10:48-0400 Heart rate90 /minDavid Acostavin DO Work Phone: [phone])[address] [place], [place] 5004110-07-2025 10:48-0400 SaO2% (BldA) [Mass fraction]97 %Jeff Jon DO Work Phone: 1(331)[address] [place], [place] 5004107-21-2025 09:40-0400 Diastolic blood yejhbkoi99 mm[Hg]Jeff Jon DO Work Phone: 1(342)[address] [place], [place] 5004107-21-2025 09:40-0400 Systolic blood zpohnsqe902 mm[Hg]Jeff Jon DO Work Phone: 1(768)[address] [place], [place] 5004107-21-2025 09:37-0400 Body mndyui195.1 cmDakorin Jon DO Work Phone: [phone])[address] [place], [place] 5004107-21-2025 09:37-0400 Body mass index (BMI) [Ratio]46.7 kg/g6Bgblh Girvin DO Work Phone: [phone])[address] [place], [place] 5004107-21-2025 09:37-0400 Body .45 kgDavisergio Shanevin DO Work Phone: 1([phone] [place], [place] 5004107-21-2025 09:37-0400 Heart rate85 /minDavid Girvin DO Work Phone: 1(432)[address] [place], [place] 5004107-21-2025 09:37-0400 Respiratory rate20 /minDavid Acostacassi DO Work Phone: [phone])[address]07-21-2025 09:37-0400 SaO2% (BldA) [Mass fraction]96 %Jeff Jon DO Work Phone: [phone])[address]07-10-2025 11:36-0400 Body sgpygy459.1 cmDabeckisergio Shanecassi DO Work Phone: 1(428)[address] [place], [place] 5004107-10-2025 11:36-0400 Body mass index (BMI) [Ratio]46.4 kg/a8Lrfmi Gircassi DO Work Phone: 1(750)[address] [place], [place] 5004107-10-2025 11:36-0400 Body dmjpdxsgifb56.9 [degF]Jeff Jon DO Work Phone: 1(801)[address] [place], [place] 5004107-10-2025 11:36-0400 Body fbnyof831.55 kgDakorin Jon DO Work Phone: 1(469)[address] [place], [place] 5004107-10-2025 11:36-0400 Diastolic blood jofuowlm64 mm[Hg]Jeff Jon DO Work Phone: 1(746)[address] [place], [place] 5004107-10-2025 11:36-0400 Heart rate90 /Juanasergio Shnaecassi DO Work Phone: 1(576)[address] [place], [place] 5004107-10-2025 11:36-0400 SaO2% (BldA) [Mass fraction]95 %Jeff Jon DO Work Phone: 1(581)[address] [place], [place] 5004107-10-2025 11:36-0400 Systolic blood trpygyvp591 mm[Hg]Jeff Jon DO Work Phone: 1(540)[address] [place], [place] 5004104-21-2025 10:10-0400 Diastolic blood xluszexx165 mm[Hg]Jeff Jon DO Work Phone: 1(462)[address] [place], [place] 5004104-21-2025 10:10-0400 Systolic blood gfkbivns624 mm[Hg]Jeff Jon DO Work Phone: 1(834)[address] [place], [place] 5004104-21-2025 10:05-0400 Body uojhvb818.1 cmDavid Girvin DO Work Phone: 1(890)[address] [place], [place] 5004104-21-2025 10:05-0400 Body mass index (BMI) [Ratio]45.7 kg/f6Hnqks Girvin DO Work Phone: [phone])[address] [place], [place] 5004104-21-2025 10:05-0400 Body emdywsbtjyi71.9 [degF]Jeff Jon DO Work Phone: 1(419)[address] [place], [place] 5004104-21-2025 10:05-0400 Body uuwcbx891.73 kgDavid Girvin DO Work Phone: [phone])[address] [place], [place] 5004104-21-2025 10:05-0400 Heart rate92 /minDbalbina Girvin DO Work Phone: [phone])[address] [place], [place] 5004104-21-2025 10:05-0400 Respiratory rate20 /minDkhaisergio Girvin DO Work Phone: 1(419)[address] [place], [place] 5004104-21-2025 10:05-0400 SaO2% (BldA) [Mass fraction]96 %Jeff Jon DO Work Phone: 1(954)[address] [place], [place] 5004104-14-2025 14:36-0400 Body dgrhjo829.1 cmDavid Acostavin DO Work Phone: 1(857)[address] [place], [place] 5004104-14-2025 14:36-0400 Body mass index (BMI) [Ratio]46.9 kg/z7Mzcpz Acostavin DO Work Phone: 1(419)[address] [place], [place] 5004104-14-2025 14:36-0400 Body bmpabdgpbgv33.6 [degF]Jeff Jon DO Work Phone: 1(458)[address] [place], [place] 5004104-14-2025 14:36-0400 Body jdxuin613.91 kgDavisergio Shanevin DO Work Phone: 1(090)[address] [place], [place] 5004104-14-2025 14:36-0400 Diastolic blood glhsjbar74 mm[Hg]Jeff Jon DO Work Phone: [facility]04-14-2025 14:36-0400 Heart rate99 /minDavid Dontrell DO Work Phone: [phone]04-14-2025 14:36-0400 Systolic blood gpiovjpj475 mm[Hg]Jeff Jon DO Work Phone: 1(419)384-[address] [place], [place] 2936403-14-2025 09:55-0400 Body wemonr324.1 cmDavid Girvin DO Work Phone: [phone] [place], [place] 2936403-14-2025 09:55-0400 Body .73 kgDavid Girvin DO Work Phone: 1([phone] [place], [place] 2936402-26-2025 10:31-0500 Body xfroje326.1 cmK[facility]02-26-2025 10:31-0500Body mass index (BMI) [Ratio]46 kg/p6NmzorfvkrKettering Health Troy02-26-2025 10:31-0500Body rhhaqn107.64 [facility]01-24-2025 11:14-0500Body .1 cmK[facility]tering [facility]01-24-2025 11:14-0500Body mass index (BMI) [Ratio]46 kg/m4DnhzpludmKettering Health [facility] 06-13-2024 11:14-0500Body ykhndvrccpj29.8 [degF][facility]01-24-2025 11:14-0500Body rqmesn734.64 kgKettering Health [facility] 06-13-2024 11:14-0500Diastolic blood mdebpcej37 mm[Hg][facility]01-24-2025 11:14-0500Heart rate92 /minKettering Health [facility] 06-13-2024 11:14-1395DpG0% (BldA) [Mass fraction]94 %[facility]01-24-2025 11:14-0500Systolic blood hcptopzq314 mm[Hg][facility]01-14-2025 11:45-0500Body wtcbun838.81 kgKettering Health [facility]01-14-2025 11:45-0500Diastolic blood sesrboat14 mm[Hg][facility]01-14-2025 11:45-0500Heart rate91 /[facility]01-14-2025 11:45-9265EhI9% (BldA) [Mass fraction]97 %[facility]01-14-2025 11:45-0500Systolic blood mm[Hg] [facility]11-22-2024 11:52-0500Body .1 cm [facility]11-22-2024 11:52-0500Body mass index (BMI) [Ratio]45.1 kg/g4NnvadwnaqKettering Health Troy11-22-2024 11:52-0500Body fxeqxczfobi58.2 [degF][facility]11-22-2024 11:52-0500Body rcylpj559.92 kgKettering Health [facility]11-22-2024 11:52-0500Diastolic blood zxqwscbu12 mm[Hg][facility]11-22-2024 11:52-0500 Heart rate86 /[facility]11-22-2024 11:52-1086IiG2% (BldA) [Mass fraction]94 %[facility]11-22-2024 11:52-0500 Systolic blood cmslvvug218 mm[Hg][facility]11-06-2024 11:37-0500Body .1 cmK[facility]11-06-2024 11:37-0500Body mass index (BMI) [Ratio]45.4 kg/n4ImmtfdyrbKettering [facility]11-06-2024 11:37-0500Body nnokdkqoooj75.4 [degF][facility]11-06-2024 11:37-0500Body gwalii541.83 kgK[facility]11-06-2024 11:37-0500Diastolic blood mzbtedcj52 mm[Hg][facility]11-06-2024 11:37-0500Heart rate78 /[facility]11-06-2024 11:37-0500Respiratory rate20 /[facility]11-06-2024 11:37-5425OsI3% (BldA) [Mass fraction]97 %[facility]11-06-2024 11:37-0500Systolic blood cqckuwlk151 mm[Hg][facility]09-24-2024 11:53-0400Diastolic blood mm[Hg]DO Jeff Jon Work Phone: [phone])[address]09-24-2024 11:53-0400 Heart rate83 /minDO Jeff Jon Work Phone: 1(884)[address] [place], [place] 5004109-24-2024 11:53-0400 SaO2% (BldA) [Mass fraction]97 %DO Jeff Jon Work Phone: 1(833)[address] [place], [place] 5004109-24-2024 11:53-0400 Systolic blood tjcpeyzp947 mm[Hg]DO Jeff Jon Work Phone: 1(686)[address] [place], [place] 5004108-26-2024 15:56-0400 Diastolic blood bdpefmtm35 mm[Hg]DO Jeff Jon Work Phone: 1(749)[address]08-26-2024 15:56-0400 Heart rate82 /minDO Jeff Jon Work Phone: 1(016)[address] [place], [place] 5004108-26-2024 15:56-0400 SaO2% (BldA) [Mass fraction]97 %DO Jeff Jon Work Phone: 1(544)[address] [place], [place] 5004108-26-2024 15:56-0400 Systolic blood tsvhrakc587 mm[Hg]DO Jeff Jon Work Phone: 1(346)[address]07-31-2024 14:19-0400 Diastolic blood itugjbpz40 mm[Hg]DO Jeff Jon Work Phone: 1(910)[address]07-31-2024 14:19-0400 Heart gjnd111 /Mary EllenO Jeff Jon Work Phone: 1(903)[address]07-31-2024 14:19-0400 SaO2% (BldA) [Mass fraction]96 %DO Jeff Jon Work Phone: 1(399)[address]07-31-2024 14:19-0400 Systolic blood ydpnbitv236 mm[Hg]DO Jeff Jon Work Phone: [facility]07-17-2024 13:53-0400 Body kzwhbe349.05 [facility]07-17-2024 13:53-0400 Diastolic blood pwskikmj16 mm[Hg][facility]07-17-2024 13:53-0400Heart rate91 /[facility]07-17-2024 13:53-8763BxB1% (BldA) [Mass fraction]97 %[facility] 12-05-2023 13:53-0400Systolic blood aahbhzzw336 mm[Hg][facility]06-10-2024 14:41-0400Body awilva769.1 [facility] 10-29-2023 14:41-0400Body mass index (BMI) [Ratio]45.7 kg/v5JlknrddfqK[facility]tering [facility]06-10-2024 14:41-0400Body ykprus113.73 [facility]06-10-2024 14:41-0400Diastolic blood xcwsskhy71 mm[Hg][facility]06-10-2024 14:41-0400Heart rate87 /[facility]06-10-2024 14:41-0400Respiratory rate18 /[facility]06-10-2024 14:41-3188GnM2% (BldA) [Mass fraction]97 %[facility]06-10-2024 14:41-0400Systolic blood ormkwdpk766 mm[Hg] [facility]05-08-2024 14:12-0400Body dzanfx098.1 cm [facility]05-08-2024 14:12-0400Body mass index (BMI) [Ratio]46 kg/z0ZachjyxjqKettering Health [facility]05-08-2024 14:12-0400Body ipqqjdpuieb73.1 [degF][facility]05-08-2024 14:12-0400Body .64 kgK[facility]05-08-2024 14:12-0400Diastolic blood wxbhzuxp39 mm[Hg][facility]05-08-2024 14:12-0400 SaO2% (BldA) [Mass fraction]95 %[facility]05-08-2024 14:12-0400Systolic blood tzerrpci008 mm[Hg][facility] 08-28-2023 11:23-0400Diastolic blood vaoigxac50 mm[Hg][facility]04-09-2024 11:23-0400Heart rate89 /[facility] 08-28-2023 11:23-2322ReH0% (BldA) [Mass fraction]98 %[facility]04-09-2024 11:23-0400Systolic blood wpqhgtti944 mm[Hg][facility]04-09-2024 10:49-0400Body pvonbm390.1 cmK[facility]04-09-2024 10:49-0400Body mass index (BMI) [Ratio]45.7 kg/d8QecirexcqKettering Health [facility]04-09-2024 10:49-0400Body baycxe432.73 kgK[facility]12-21-2023 14:10-0500Diastolic blood knxagytg83 mm[Hg] Casper Nguyen [facility]12-21-2023 14:10-0500Heart rate81 /minBraangelaord Patrick [facility]12-21-2023 14:10-0500Mean blood pthwoxqv147 mm[Hg]Casper Nguyen [facility]12-21-2023 14:10-0500 Respiratory rate14 /minBradford Patrick [facility]12-21-2023 14:10-0500 Systolic blood atsxzrcd039 mm[Hg]Casper Nguyen [facility]10-30-2023 14:00-0400Body uswulr048.1 Gerardo Terrazas Other [employer] Other 10-30-2023 14:00-0400Body mass index (BMI) [Ratio] 45.09 kg/t0Qdgnntqsagj Mk Other [employer] Other 10-30-2023 14:00-0400Body ddpvqutjwlg95.8 [degF] Christopher Mk Other [employer] Other 10-30-2023 14:00-0400Body iiqnpy871.93 kgChristopher Mk Other [employer] Other 10-30-2023 14:00-0400Respiratory rate20 /min Ryleyer Mk Other [employer] Other 10-30-2023 14:00-2297PaE0% (BldA) [Mass fraction]98 % Ryleyer Mk Other [employer] Other 10-05-2023 08:10-0400Body bylxdm301.1 cmJeff Jon Other [employer] Other 10-05-2023 08:10-0400Body mass index (BMI) [Ratio] 45.26 kg/g6QkfteJeff Jon Other [employer] Other 10-05-2023 08:10-0400Body mndqxakuokb79.8 [degF]Jeff Jon Other [employer] Other 10-05-2023 08:10-0400Body .38 kgDakorin Jon Other [employer] Other 10-05-2023 08:10-0400Diastolic blood xamngpge317 mm[Hg]Jeff Jon Other [employer] Other 10-05-2023 08:10-0400Respiratory rate18 /minDavisergio Shanecassi Other [employer] Other 10-05-2023 08:10-1865ImH2% (BldA) [Mass fraction]99 % Jeff Jon Other [employer] Other 10-05-2023 08:10-0400Systolic blood kaehiaqv552 mm[Hg] Jeff Jon Other [employer] Other 06-06-2023 16:50-0400Body hrqsyo764.1 cmAmbkirby Manuel Other [employer] Other 06-06-2023 16:50-0400Body mass index (BMI) [Ratio] 45.09 kg/q3JctfaLacie Manuel Other [employer] Other 06-06-2023 16:50-0400Body slkylsdtqnu75 [degF]Lacie Manuel Other [employer] Other 06-06-2023 16:50-0400Body kooawu593.93 kgLacie Manuel Other [employer] Other 06-06-2023 16:50-0400Diastolic blood ztkyyasf97 mm[Hg] Lacie Manuel Other [employer] Other 06-06-2023 16:50-0400Respiratory rate18 /minLacie Manuel Other [employer] Other 06-06-2023 16:50-4916GoQ6% (BldA) [Mass fraction]95 % Lacie Manuel Other [employer] Other 06-06-2023 16:50-0400Systolic blood uxhdvkgd842 mm[Hg] Lacie Manuel Other [employer] Other 05-30-2023 08:45-0400Body yjnwiu502.1 cmChristopher Mk Other [employer] Other 05-30-2023 08:45-0400Body mass index (BMI) [Ratio] 44.76 kg/r3Bxnvyvsyxxb Mk Other [employer] Other 05-30-2023 08:45-0400Body jloomkbtwlo68.8 [degF] Christopher Mk Other [employer] Other 05-30-2023 08:45-0400Body ehxuck935.02 kgChristopher Mk Other [employer] Other 05-30-2023 08:45-0400Diastolic blood cspfeuml30 mm[Hg] Christopher Mk Other [employer] Other 05-30-2023 08:45-0400Respiratory rate20 /min Christopher Mk Other [employer] Other 05-30-2023 08:45-8434PcE9% (BldA) [Mass fraction]98 % Christopher Mk Other [employer] Other 05-30-2023 08:45-0400Systolic blood mm[Hg] Carlos Mk Other [employer] Other 04-26-2023 10:15-0400Body xrcyos229.1 cmChristophkirby Mk Other [employer] Other 04-26-2023 10:15-0400Body mass index (BMI) [Ratio] 43.43 kg/s3Pyroepfnodw Mk Other [employer] Other 04-26-2023 10:15-0400Body oddpdisrkkb66.8 [degF] Carlos Mk Other [employer] Other 04-26-2023 10:15-0400Body tykhvp472.39 kgChristopher Mk Other [employer] Other 04-26-2023 10:15-0400Diastolic blood ukolcbpa330 mm[Hg]Ryleyer Mk Other [employer] Other 04-26-2023 10:15-0400Respiratory rate20 /min Christkyleer Mk Other [employer] Other 04-26-2023 10:15-6103QaS9% (BldA) [Mass fraction]100 % Ryleyer Mk Other [employer] Other 04-26-2023 10:15-0400Systolic blood blmgywyg208 mm[Hg] Ryleyer Mk Other 351.957.3642[employer] Other 03-24-2023 13:35-0400Body egkmjo476.1 cmAne Manuel Other [employer] Other 03-24-2023 13:35-0400Body mass index (BMI) [Ratio] 26.62 kg/q3Bvmxm Manuel Other [employer] Other 03-24-2023 13:35-0400Body yphcikgiihq31.8 [degF]Lacie Manuel Other [employer] Other 03-24-2023 13:35-0400Body .58 kgSwathikirby Manuel Other [employer] Other 03-24-2023 13:35-0400Respiratory rate18 /minLacie Manuel Other [employer] Other 03-24-2023 13:35-5167EpV6% (BldA) [Mass fraction]98 % Lacie Peteler Other [employer] Other 02-22-2023 13:20-0500Body ceyaem107.1 cmDakorin Jon Other [employer] Other 02-22-2023 13:20-0500Body mass index (BMI) [Ratio] 43.26 kg/r1Ltxtikorin Jon Other [employer] Other 02-22-2023 13:20-0500Body nhyrmvkzmyf57.1 [degF]Jeff Jon Other [employer] Other 02-22-2023 13:20-0500Body teevrr973.94 kgDakorin Jon Other [employer] Other 02-22-2023 13:20-0500Diastolic blood fugqicga28 mm[Hg] Jeff Jon Other [employer] Other 02-22-2023 13:20-0500Respiratory rate18 /minDavisergio Jon Other [employer] Other 02-22-2023 13:20-8078XpO7% (BldA) [Mass fraction]99 % Jeff Jon Other [employer] Other 02-22-2023 13:20-0500Systolic blood wudzknrr935 mm[Hg] Jeff Jon Other [employer] Other 11-22-2022 13:40-0500Body fxphih357.1 cmDakorin Jon Other [employer] Other 11-22-2022 13:40-0500Body mass index (BMI) [Ratio] 43.26 kg/a6QsfeaJeff Jon Other [employer] Other 11-22-2022 13:40-0500Body jpabttpfscs90.5 [degF]Jeff Jon Other [employer] Other 11-22-2022 13:40-0500Body tldlys782.94 kgDakorin Jon Other [employer] Other 11-22-2022 13:40-0500Diastolic blood wgaqutfp376 mm[Hg]Jeff Jon Other [employer] Other 11-22-2022 13:40-0500Respiratory rate18 /minDavid Dontrell Other [employer] Other 11-22-2022 13:40-7891UfC5% (BldA) [Mass fraction]98 % Jeff Jon Other [employer] Other 11-22-2022 13:40-0500Systolic blood cnorzsfg658 mm[Hg] Jeff Jon Other [employer] Other 07-19-2022 12:00-0400Body mraoie698.1 cmHeidi Jacky Other [employer] Other 07-19-2022 12:00-0400Body mass index (BMI) [Ratio] 45.09 kg/h5Btwvq Jacky Other [employer] Other 07-19-2022 12:00-0400Body erpmiequhay97.9 [degF]Lorena Jacky Other [employer] Other 07-19-2022 12:00-0400Body kjyoov892.93 kgHeidi Jacky Other [employer] Other 07-19-2022 12:00-0400Diastolic blood vnoakulc54 mm[Hg] Lorena Jacky Other [employer] Other 07-19-2022 12:00-0400Respiratory rate20 /minHeidi Jacky Other [employer] Other 07-19-2022 12:00-7718GnV8% (BldA) [Mass fraction]99 % Lorena Jacky Other [employer] Other 07-19-2022 12:00-0400Systolic blood mm[Hg] Lorena Jacky Other [employer] Other 06-02-2022 11:30-0400Body rdqsym572.1 cmDakorin Jon Other [employer] Other 06-02-2022 11:30-0400Body mass index (BMI) [Ratio] 46.09 kg/j2Ontlekorin Jon Other [employer] Other [id number] 11:30-0400Body qdvykohkfiv43.8 [degF]Jeff Jon Other [employer] Other 06-02-2022 11:30-0400Body hndwox070.65 kgDakorin Jon Other [employer] Other 06-02-2022 11:30-0400Diastolic blood lsxanxla26 mm[Hg] Jeff Jon Other [employer] Other 06-02-2022 11:30-0400Respiratory rate18 /minDbalbina Jon Other [employer] Other 06-02-2022 11:30-7712WlH2% (BldA) [Mass fraction]96 % Jeff Jon Other [employer] Other 06-02-2022 11:30-0400Systolic blood uggzyqxr777 mm[Hg] Jeff Jon Other [employer] Other 05-20-2022 13:46-0400Body lsvkew077.83 kgCarmen Gota MD Work Phone: [facility]05-20-2022 13:46-0400Diastolic blood achnxcht98 mm[Hg]Leena Seymour MD Work Phone: [facility]05-20-2022 13:46-0400Heart rate94 /min Leena Seymour MD Work Phone: [facility]05-20-2022 13:46-0400Systolic blood xhlhzevr874 mm[Hg]Leena Seymour MD Work Phone: [facility]10-26-2021 13:40-0400Body qapbsb726.1 cmDakorin Jon Other [employer] Other 10-26-2021 13:40-0400Body mass index (BMI) [Ratio] 45.51 kg/q6JfoyiJeff Jon Other [employer] Other 10-26-2021 13:40-0400Body jflcuqvwcax62.7 [degF]Jeff Jon Other [employer] Other 10-26-2021 13:40-0400Body kxztme494.06 kgDakorin Jon Other [employer] Other 10-26-2021 13:40-0400Diastolic blood cibthubh76 mm[Hg] Jeff Jon Other [employer] Other 10-26-2021 13:40-0400Respiratory rate20 /minDbalbina Jon Other [employer] Other 10-26-2021 13:40-9785UsL8% (BldA) [Mass fraction]98 % Jeff Jon Other [employer] Other 10-26-2021 13:40-0400Systolic blood uruaewbe493 mm[Hg] Jeff Jon Other [employer] Other 10-04-2021 11:00-0400Body .1 cmChristdanna Phillipsdano Other [employer] Other 10-04-2021 11:00-0400Body mass index (BMI) [Ratio] 44.93 kg/g3Rhwgyksdfiu Mk Other [employer] Other 10-04-2021 11:00-0400Body fbitwmtepzo09.5 [degF] Carlos Phillipsdano Other [employer] Other 10-04-2021 11:00-0400Body .47 kgChristop Mk Other [employer] Other 10-04-2021 11:00-0400Diastolic blood mxwaolyn28 mm[Hg] Carlos Mk Other [employer] Other 10-04-2021 11:00-0400Respiratory rate20 /min Carlos Mk Other [employer] Other 10-04-2021 11:00-8755JmM2% (BldA) [Mass fraction]99 % Carlos Mk Other [employer] Other 10-04-2021 11:00-0400Systolic blood exkkdlse911 mm[Hg] Carlos Mk Other [employer] Other Encounters Encounter DateEncounter TypeCare ProviderFacilityStart: 03-02-2025 End: 51-97-6913jwxtoicmmkOybtw Gircassi DO Work Phone: [facility] Work Phone: Start: 03-02-2025 End: 01-31-4545Dljmnez encounter procedureDakorin Shanecassi BETH-[facility] Work Phone: Start: 02-24-2025 End: 28-07-0751myzehrmhkvEfypk Gircassi DO Work Phone: [facility] Work Phone: Start: 02-24-2025 End: 59-00-5701Rduwvwj encounter procedureDakorin Shanecassi -[facility] Work Phone: Start: 02-09-2025 End: 67-08-2010wizcwzllxgCJYUKF [facility] Start: 07-31-6799Ywp-patient / Non-visitGeorge Kenzie YA-[facility] Work Phone: Start: 01-08-2025 End: 72-94-2143wmschjlztvDZFJ [facility]: 62-50-7139Lku-patient / Non-visitGeormalissa Espino MD-[facility] Work Phone: Start: 01-05-2025 End: 38-51-3770yqscskpkxcXPXQUZ [facility] Start: 12-08-2024 End: 19-70-8317pbzshbnmgkWvohd Gircassi DO Work Phone: [facility] Work Phone: Start: 12-08-2024 End: 15-90-7688Cadfjua encounter procedureLorena Moore APRN [facility] Work Phone: Start: 11-27-2024 End: 69-96-5003aidxidawtvXouqc Girvin DO Work Phone: [facility] Work Phone: Start: 11-27-2024 End: 46-71-2037Ahlgmqx encounter procedureDavid C Girvin DO-[facility] Work Phone: Start: 11-26-2024 End: 28-29-4662vonxvxqctoMzbho GirvinFacility:[facility] Start: 58-13-1483Wmw-patient / Non-visitDavid C Girvin DO-[facility] Work Phone: Start: 43-14-2100Uct-patient / Non-visitDavid C Girvin DO-[facility] Work Phone: Start: 10-24-2024 End: 51-21-0184cxkvipyecmVoeuq Girvin DO Work Phone: [facility] Work Phone: Start: 10-24-2024 End: 12-70-6213Ncmiotn encounter procedureDavid Girvin DO Work Phone: [facility] Work Phone: Start: 09-08-2024 End: 96-57-4212xhaprrdmibJfnds Girvin DO Work Phone: [facility] Work Phone: Start: 09-08-2024 End: 91-37-0467Zjeebgp encounter procedureDavid Girvin DO Work Phone: [facility] Work Phone: Start: 87-66-8553Ttx-patient / Non-visitDavid Girvin DO Work Phone: [facility] Work Phone: Start: 09-01-2024 End: 39-63-2095icdcrqwkuzSrbpg Girvin DO Work Phone: [facility] Work Phone: Start: 09-01-2024 End: 53-00-7411Ugcifkc encounter procedureDavid Girvin DO Work Phone: [facility] Work Phone: Start: 08-25-2024 End: 32-01-1333txfnigmpvhVLZVOS [facility] Start: 03-27-9326Lfc-patient / Non-visitDavid Girvin DO Work Phone: [facility] Work Phone: Start: 97-94-1739Pxd-patient / Non-visitDavid Girvin DO Work Phone: [facility] Work Phone: Start: 08-01-2024 End: 05-07-1181cqqeqbgilxRbwmn Girvin DO Work Phone: [facility] Work Phone: Start: 08-01-2024 End: 05-12-4829Erozctxe ReferredDavid Girvin DO Work Phone: [facility]-Dig[facility]ive [facility] Work Phone: Start: 07-30-2024 End: 83-11-6185Saroiyq encounter procedureDavid Girvin DO Work Phone: [facility]-CT Scan [facility] [place] Work Phone: Start: 07-30-2024 End: 28-59-0713kwtghdsehhEmevz Girvin DO Work Phone: [facility] Work Phone: Start: 07-16-2024 End: 01-26-6238xtujcmtgkqIbglcxdil [facility] Work Phone: Start: 07-16-2024 End: 55-86-8829Ijkykxz encounter [facility]ret[facility] Work Phone: Start: 28-91-6196ahfsdbktpwUjbwosnniOhio State [facility] Work Phone: Start: 95-11-7154Zmg-patient / [facility] Work Phone: Start: 06-13-2024 End: 06-98-2215qquqkmguwwQhzsbhnloOhio State Harding Hospital Work Phone: Start: 06-13-2024 End: 26-96-5977Pihwmxu encounter procedureIvettretreat doctors' hospital [facility] Work Phone: Start: 06-03-2024 End: 10-33-0976rtivhfdfioQgjaxlftiOhio State [facility]ing Hospital Work Phone: Start: 06-03-2024 End: 82-32-3678Ycvqnry encounter procedureIvettretreat doctors' hospital [facility] Work Phone: Start: 04-11-2024 End: 40-10-8174Dpvpqqn encounter procedureAt[facility] [place] Work Phone: Start: 03-26-2024 End: 30-52-7658fheohtefihRxmmliwksMcKitrick Hospital Work Phone: Start: 03-26-2024 End: 23-50-5322Icyufht encounter procedureIvettretreat doctors' hospital [facility] Pulmonary Disease Work Phone: Start: 14-06-4586Sjf-patient / Non-visitAt[facility] Work Phone: Start: 02-12-2024 End: 92-19-4746zgaunxffgqKWVera Jon Work Phone: [facility] Work Phone: Start: 02-12-2024 End: 14-11-4574Febjvtx encounter procedureDO Jeff Jon Work Phone: [facility] Work Phone: Start: 02-05-2024 End: 03-57-2402xypjxffhroNN Jeff Jon Work Phone: [facility] Work Phone: Start: 02-05-2024 End: 74-59-0498Hvinmhn encounter procedureDO Jeff Jon Work Phone: [facility] Work Phone: Start: 37-66-3924Mkd-patient / Non-visitDO Jeff Jon Work Phone: [facility] Work Phone: Start: 05-43-6840yldbkjigdgVgrfn Clark Girvin DO [facility] 01-14-2024 End: 12-04-3464lotwawvjulMA Jeff Jon Work Phone: [facility] Work Phone: Start: 01-14-2024 End: 86-05-4571Sqxdzeo encounter procedureDO Jeff Jon Work Phone: [facility] Work Phone: Start: 15-15-4237pssfjfpykhEtxltAnisa Jon DO [facility]: 90-36-6146Ynn-patient / Non-visitDO Jeff Jon Work Phone: [facility] Work Phone: Start: 12-27-2023 End: 49-96-3674rqxmmekzheOE Jeff Jon Work Phone: [facility] Work Phone: Start: 12-27-2023 End: 85-12-3402Avxjzsa encounter procedureDO Jeff Jon Work Phone: [facility] Work Phone: Start: 12-19-2023 End: 03-10-6111fjwvxqqvnhKN David Girvin Work Phone: [facility] Work Phone: Start: 12-19-2023 End: 82-36-7155Mphfhqi encounter procedureDO Jeff Jon Work Phone: [facility] Work Phone: Start: 77-97-6242opyqjpiflwVjkjr Clark Girvin DO [facility]: 12-12-2023 End: 87-04-8092whxgkrnmsyUougk Clark Girvin DOFacility:[facility]Start: 12-05-2023 End: 03-93-9408zjohpbzuyrEE David Girvin Work Phone: [facility] Work Phone: Start: 12-05-2023 End: 41-10-0767Dcvgabj encounter procedureSpike Physician [facility] Work Phone: Start: 10-29-2023 End: 36-52-4371srgslguwelTmmypzjuaOhio State Harding Hospital Work Phone: Start: 10-29-2023 End: 78-27-6136Lttihbn encounter procedureSpike Physician [facility] [place] Work Phone: Start: 17-94-3896Hzo-patient / Non-visitSpike Physician [facility] Work Phone: Start: 10-23-2023 End: 79-60-6315plosuvcyfxBBSUNE H TIMMISNot AvailableStart: 09-26-2023 End: 61-81-5935skesyeycjdKfkwsgmivOhio State Harding Hospital Work Phone: Start: 09-26-2023 End: 97-55-0637Wztoifr encounter procedureFirretreat doctors' hospital [facility] [place] Work Phone: Start: 09-24-2023 End: 18-61-8868ygeevcgnbhGAXTRP H TIMMISNot AvailableStart: 09-18-2023 End: 81-41-5208pgkhlihnjwTTUIHDE Rah BARBARAILLNot AvailableStart: 09-05-2023 End: 45-20-5899msjvnirvbtXSHFMB H TIMMISNot AvailableStart: 08-28-2023 End: 49-56-6712aewomxpussSctumzlahOhio State Harding Hospital Work Phone: Start: 08-28-2023 End: 83-04-7694Jchfqzy encounter procedureAt[facility] Medicine [place] Work Phone: Start: 46-07-4572Rjq-patient / Non-visitAtrium Health [facility]burg [facility] [employer] [facility] Work Phone: Start: 08-21-2023 End: 56-93-3920bbksmesbcoGITQAP H TIMMISNot AvailableStart: 06-29-2023 End: 00-63-1784cyyxdoscxiHbqhz Girvin Other [facility] [employer] Other Start: 17-86-5783Ymessilqd encounterDavid DontrellFPG [facility] CenterueStart: 05-10-2023 End: 03-50-2673mvbaggtcmsPGAnabel NguyenFacility:FTMCStart: 05-10-2023 End: 37-09-6763Opel Hilton Nguyen [facility] Start: 04-30-2023 End: 48-89-5827ieokqqdyybDCXK D TRACYNot AvailableStart: 04-24-2023 End: 00-38-6159srpedtvkypKWVM D TRACYNot AvailableStart: 04-18-2023 End: 20-03-1880oditscmcaqDUBY D TRACYNot AvailableStart: 04-04-2023 End: 39-46-8844mtkqgaytrqPcyqq Girvin Other [employer] Other Start: 40-55-9639Pawlctkxa encounterDavisergio JonTisha Family [facility] HospitalueStart: 03-19-2023 End: 91-06-6444nqnpbztpprDkptzytwahz Mk Other [employer] Other Start: 10-49-6335Ftjkay outpatient visit 15 minutes Christophkirby [facility] Pulmonary DiseaseStart: 02-22-2023 End: 95-79-0261txircslcsoPqqze Girvin Other [employer] Other Start: 65-48-3802Sqxavx outpatient visit 25 minutes Jeff JonS[facility] Family [facility]tart: 11-24-2022 End: 66-46-6922vqjubnoauyOfpir Girvin Other [employer] Other Start: 15-17-3902Ipyqosknn encounterDavisergio JonAdams-Nervine Asylumtart: 10-24-2022 End: 70-03-7241oycawtytbiNchur Keller Other [employer] Other Start: 79-48-1242Pxsxdg outpatient visit 15 minutes Lacie [facility] ClydeStart: 10-17-2022 End: 00-71-6781gpvdevssbeAtfzgquavwk Mk Other noSkyl[employer] Other Start: 04-97-4180Beempn outpatient visit 15 minutes Christophkirby TerrazasFPG Pulmonary DiseaseStart: 78-04-8488ufyysoyudxUdGris Garcesf TraboulssiFacility:[id number]: 03-25-8906Fxxjduk encounter procedureDakorin Jon Work Phone: [phone]-Ructf [facility] [address] DO Work Phone: Start: 08-87-5129mkwqbxeidxQa. David Clark Girvin Facility:[id number]: 53-22-6329Ljqefyypv for other preprocedural examination [facility]: 12-79-2239Vaeeptuqx for preprocedural cardiovascular examinationHINERY [facility]: 09-14-2022 Encounter for preprocedural laboratory examinationHIWooster Community Hospitaltart: 90-11-3577Riwhftfbb for preprocedural respiratory examination [facility] 09-13-2022 End: 01-23-9138xnbabuseeuHioctjbvjmt Mk [facility] [employer] Other Start: 62-79-0762Kvnyqr outpatient visit 25 minutes Carlos Valle Pulmonary DiseaseStart: 71-98-5408zyxagzjphcJH DAVID GIRVINFacility:U2Glqhs: 09-08-2022 End: 54-58-5221Huqhmozhf for preprocedural laboratory examinationDR JEFF JON Facility:U5Fvgxw: 09-08-2022 End: 95-23-8906kwtxyagnddPT DAVID GIRVINSteen DietBetter Other Start: 37-11-6802Ldmdntyzm encounterDavisergio Aragon Family [facility] HospitalueStart: 09-01-2022 End: 01-65-4635wtaauquaqoYwfoc Girvin Other [employer] Other Start: 37-96-9810Xnjeofiem encounterDavisergio Aragon Family [facility] HospitalueStart: 08-21-2022 End: 34-67-7323xshxuxxobmJVAXTJG M MANONFacility:K9Echpp: 08-18-2022 End: 46-36-6614znmbvexmmtCa. David Clark GirvinShelby[employer] Other Start: 69-09-1194Sghqghhfh encounterDavid GirvinFPG [facility] BellevueStart: 08-17-2022 End: 62-17-1411vyheykfkzkMNGKSG DIAB .Facility:I7Fesay: 08-14-2022 End: 39-75-2284yfxbqmujciVaanv Girvin Other [employer] Other Start: 30-19-4349Skgkdhdvf encounterDavid GircassiFPG [facility] BellevueStart: 08-11-2022 End: 66-43-4119mvhlrfbmkqGgwqf Gircassi Other [employer] Other Start: 93-03-8748Bruttl outpatient visit 15 minutes Lacie ManuelTisha Urgent Care ClydeStart: 60-00-1056Gcjzlqjsq encounterDavid GircassiFPG [facility] BellevueStart: 08-07-2022 End: 76-92-1419xquyrzyboiLlyrf Gircassi Other [employer] Other Start: 80-63-7086Xxccwtsxv encounterDavid GircassiFPG [facility] BellevueStart: 07-12-2022 End: 19-90-4436pjnzmydqrlRjcay Gircassi Other [employer] Other Start: 64-76-0600Xbwehf outpatient visit 25 minutes Jeff Aragon [facility] BellevueStart: 54-69-6624Hdcbswpuz encounter Jeff Aragon [facility] [place]vueStart: 07-10-2022 End: 85-93-3952xgvcuookxfZY JEFF Laicility:K5Isblr: 06-14-2022 End: 57-56-3976inwxogdrwvGgyzq Dontrell Other [employer] Other Start: 62-44-5343Lwirrqzsd encounterDavid DontrellANNELG [facility] BellevueStart: 06-07-2022 End: 79-73-4049bezyqfnnauEhgkr Girvin Other [employer] Other Start: 67-79-2101Bsknqdpwq encounterDavid AcostacassiFPG [facility] BellevueStart: 04-11-2022 End: 89-37-9924cdmyrooghhKrpjj Girvin Other [facility] [employer] Other Start: 00-13-4232Gqlddu outpatient visit 25 minutes Jeff Aragon [facility] [place]vueStart: 04-05-2022 End: 39-58-4357zaqjvrokgcIW JEFF JONFacility:B5Uedoh: 04-04-2022 End: 67-34-0965swkigpfpulJcvqf Girvin Other [facility] [employer] Other Start: 29-52-4113Ndgmpvmsq encounterDavid AcostacassiFPG [facility] BellevueStart: 04-03-2022 End: 49-12-9343elbkccorvkKkukb Girvin Other [facility] [employer] Other Start: 10-59-3302Isdoakolw encounterDavid AcostacassiFPG [facility] BellevueStart: 03-21-2022 End: 71-24-2248cuwlojnodyLmxpq Girvin Other [facility] [employer] Other Start: 72-59-6533Gqckjhdyj encounterDavid AcostacassiFPG [facility] BellevueStart: 12-09-2021 End: 55-48-2720uuurtabhxySjigm Dontrell Other [employer] Other Start: 43-33-4356Nygjrqdbt encounterDavid GirvinFPG [facility] [place]vueStart: 12-06-2021 End: 23-14-1533koopgmefsxBtuli Jacky Other Nort [employer] Other Start: 04-35-0058Sxpnjc outpatient visit 25 minutes Lorena GastFPG Pulmonary DiseaseStart: 32-30-8941Fivjpqgtp encounterHeidi GastFPG Pulmonary DiseaseStart: 11-29-2021 End: 69-04-6000qphcizbwkyPM JEFF JONFacility:G9Ijlax: 10-20-2021 End: 97-28-7851lxyoxvicqkNfham Girvin Other Nort [employer] Other Start: 06-15-7858Schxzw outpatient visit 25 minutes Jeff Aragon [facility] [place]vueStart: 10-13-2021 End: 98-13-9702habzkldsmfPNKLAShahzad Laicility:[facility] Start: 10-13-2021 End: 07-73-3296ciejfgsltiPpxyg Chhay APRN.CNP Work Phone: EndocrinologyComment on above:Type 2 diabetes mellitus with hyperglycemia, without long-term current use of insulin (HCC) (Primary Dx); Heraclio's diseaseStart: 10-13-2021 End: 85-85-0221Temlgdobmyno consultation with Agustin Jimenez APRN.CNP Work Phone: CC CHRIS FHCStart: 38-65-0284Inmgaudvi encounterAnila Jimenez APRN.CNP Work Phone: EndocrinologyComment on above:AppointmentStart: 10-07-2021 End: 47-22-8634xfogrqaaqpDPJSPShahzad Laicility:[facility] Start: 10-07-2021 End: 47-01-1021Iamqegn encounter Shan Seymour MD Work Phone: RheumatologyComment on above:Fibromyalgia (Primary Dx); ALDEN (generalized anxiety disorder)Start: 79-59-4085Uflzbeqzd encounterAsad Ansari MD Work Phone: EndocrinologyComment on above:Lab OrdersStart: 22-44-8068stgbbcffmhBXMohsen Laicility:G5Bkkio: 71-25-8366Crfxyeuuo encounterDavid DontrellFPG [facility] BellevueStart: 09-28-2021 End: 79-41-9107fqbzeahobrLP DAVID G[facility]VINNob[facility] [employer] Other Start: 09-20-2021 End: 03-11-2148hxarzitnkuAbarjunjwmu Mk Other [employer] Other Start: 74-95-4415Cestiqyzk encounterChristopher AvendanoFPG Pulmonary DiseaseStart: 08-22-2021 End: 19-96-1052tvnzlsrtmvYxwhkslczhp Mk Other [employer] Other Start: 25-56-5277Vgzulecje encounterDavid Margo [facility] BellueStart: 07-22-2021 End: 69-89-6445doakzpuskeLHGTZ SKUGORFacility:[facility] Hospitaltart: 07-14-2021 End: 64-92-4369jwnqrddeclWhcxc Dontrell Other [employer] Other Start: 74-51-8211Gevwqxvri encounterDavid DontrellFPG [facility] [place]vueStart: 07-04-2021 End: 58-81-1304dndlorgdhyDozmn Dontrell Other [employer] Other start: 62-91-1325Bdrypkpbg encounterDavid DontrellFPG [facility] [place]vueStart: 06-28-2021 End: 14-86-2145nexlnzpdapHnsrj Dontrell Other [employer] Other Start: 75-38-9325Vgfzyiiyw encounterDavid Margo [facility] BellevueStart: 03-74-6928Fmbgsfqnj encounterAsad Ansari MD Work Phone: EndocrinologyComascension st. [facility] on above:Patient QuestionStart: 06-16-2021 End: 70-57-6825wxhwogatxaUMBMS CLARK GIRVINFacility:[facility] Start: 06-16-2021 End: 46-50-6595bgnpsdtainNPZVT SKUGORFacility:[facility] Hospitaltart: 05-25-2021 End: 35-94-9286qfaeyfgkhaRkgkp Girvin Other [employer] Other Start: 80-23-7034Dvmubyipu encounterDavid DontrellFPG [facility] [place]vueStart: 05-11-2021 End: 53-19-9872yezasalqpgLrhwh Girvin Other [employer] Other Start: 89-31-2030Pdrgtiqnc encounterDavid DontrellFPG [facility] Medicine [place]vueStart: 04-27-2021 End: 34-85-3782fillunbclvQiqps Girvin Other [employer] Other Start: 79-22-1420Lvaqfogdc encounterDavisergio JonFPG [facility] Medicine BellevueStart: 04-19-2021 End: 86-51-7694jhcbfunbaiXecltg Cundiff Other [facility] [employer] Other Start: 32-01-9510Gehkkqxor encounterCarl Valdivia [facility] ClinicStart: 22-13-9585Bszizicif encounterDakarlos Jordan [facility] Care ClinicStart: 90-36-3527Pnwhfd outpatient visit 15 minutesDavisergio JonFPG Family Medicine BellevueStart: 49-39-4949Lgmbbpcbi encounterDavid DontrellFPG [facility] Medicine BellevueStart: 59-53-5043Qqelvy outpatient visit 15 minutesChristopher AvendanoFPG Pulmonary DiseaseStart: 09-26-2018 End: 35-07-2038Vjotgdw encounter procedureDAKORIN Reeder [facility] Procedures DateProcedureProcedure DetailPerforming ClinicianStart: 93-32-5384Xlnbkpbz tomography of abdomen and pelvis with contrastDakorin Jon DO Work Phone: Start: 27-31-9782M-ray of lumbar spine, four viewsDO Jeff Jon Work Phone: Start: 88-69-9520Auhko x-ray of pelvis and lower extremityDO Jeff Jon Work Phone: Start: 92-36-5780Msqol depression screening assessment Leena Seymour MD Work Phone: Start: 05-67-9533Orx brain brain stem w/o w/contrast materialDAVID [facility]Abdominal hysterectomyCasper Nguyen cholecystectomyCasper Nguyen laparoscopyCasper Nguyen Myringotomy and insertion of T tubeCasper Nguyen comment on above:z3RtqtixfwxmkiuBdhuhapg Jones Plan of Treatment DateCare ActivityDetailAuthorStart: 84-22-5317Uqrvn cultureProtestant Deaconess Hospitaltart: 06-69-1537CeyjzdmyfmpqgulhicchqczxziGO EGD/Colonoscopy (Not Applicable)[facility] Hospitaltart: 04-99-1052Pfarfyv referral [facility] Work Phone: Start: 50-31-8517VRIMAJOF SCREENDIABETES SCREEN [facility] Hospitaltart: 87-95-7842Swajelc [facility] Work Phone: Start: 30-04-7393Ttlwsms [facility] Work Phone: Start: 56-48-6189Aaqab depression screening assessment DEPRESSION SCREENINGAvita Health System Bucyrus Hospitaltart: 61-80-4250Vrmvxlylpe A1c/Hemoglobin.total in WmwrhGFD9QRvfhfhmll ClinicStart: 20-54-5202Gpjwjzurd vaccinationINFLUENZA (#1)[facility] Hospitaltart: 11-25-2021 End: 72-67-7638L3 FREE BLDT3 FREE BLD Lab Routine Heraclio's disease Expected: 11/25/2021, Expires: 01/25/2022[facility] Work Phone: Comment on above:Expected: 11/25/2021, Expires: 01/25/2022tart: 11-25-2021 End: 17-98-3657O5 FREE/FREE THYROXT4 FREE/FREE THYROX Lab Routine Heraclio's disease Expected: 11/25/2021, Expires: 01/25/2022[facility] Work Phone: Comment on above:Expected: 11/25/2021, Expires: 01/25/2022tart: 11-25-2021 End: 56-44-4658Wuazvrvcrmd [Units/volume] in Serum or PlasmaTSH BLD Lab Routine Heraclio's disease Expected: 11/25/2021, Expires: [address] [place] [address] Work Phone: Comment on above:Expected: 11/25/2021, Expires: 01/25/2022tart: 10-07-2021 End: 04-22-5496KWPNABR ELECTROPHORESIS SERUM W/INTERBl[facility]ard [facility] Work Phone: Comment on above:Expected: 10/07/2021, Expires: 12/07/2021tart: 10-05-2021 End: 51-91-3607Hphbgqmvhpatd metabolic 2000 panel - Serum or PlasmaCOMP METABOLIC PANEL Lab Routine Controlled type 2 diabetes mellitus without complication, without long-term current use of insulin (HCC) Expected: 10/05/2021, Expires: 12/05/2021[facility] Work Phone: Comment on above:Expected: 10/05/2021, Expires: 12/05/2021tart: 10-05-2021 End: 74-37-8965Djvttdrcdl A1c/Hemoglobin.total in BloodHGB A1C Lab Routine Controlled type 2 diabetes mellitus without complication, without long-term curr ent use of insulin (HCC) Expected: 10/05/2021, Expires: 12/05/2021[facility] Work Phone: Comment on above:Expected: 10/05/2021, Expires: 12/05/2021tart: 10-05-2021 End: 45-91-6089O4 FREE BLDT3 FREE BLD Lab Routine Acquired hypothyroidism Expected: 10/05/2021, Expires: 12/05/2021[facility] Work Phone: Comment on above:Expected: 10/05/2021, Expires: 12/05/2021tart: 10-05-2021 End: 60-98-2716T7 FREE/FREE THYROXT4 FREE/FREE THYROX Lab Routine Acquired hypothyroidism Expected: 10/05/2021, Expires: 12/05/2021[facility] Work Phone: Comment on above:Expected: 10/05/2021, Expires: 12/05/2021tart: 10-05-2021 End: 32-20-2258Ufmyxknfejs [Units/volume] in Serum or PlasmaTSH BLD Lab Routine Acquired hypothyroidism Expected: 10/05/2021, Expires: 12/05/2021[facility] Work Phone: Comment on above:Expected: 10/05/2021, Expires: 12/05/2021tart: 60-23-0895FEGEGTATGU ASSESSMENTDEPRESSION ASSESSMENTAvita Health System Bu[facility] Hospitaltart: 69-13-2918SQCTI-19 VACCINE (3 - Booster for Pfizer series)COVID-19 VACCINE (3 - Booster for Pfizer series)[facility] Hospitaltart: 43-35-0652ICNKU-19 VACCINE (3 - Booster for Pfizer series)COVID-19 VACCINE (3 - Booster for Pfizer series)[facility]tart: 06-72-6299DUKRCSBG VACCINE (1 of 2)SHINGRIX VACCINE (1 of 2)[facility] Hospitaltart: 22-09-2741BFAVQBVTS (FIT-DNA)COLOGUARD (FIT-DNA)[facility]tart: 15-18-8201DymhfnljlqmMLHEMQPFFMXLimsdzxfx Clinic Start: 44-64-2091SJUMIWPZJM CANCER SCREENINGCOLORECTAL CANCER SCREENINGAv[facility] Health [facility] Bu[facility] Hospitaltart: 99-47-6746ZK COLONOGRAPHYCT COLONOGRAPHYAvita Health System Bucyrus Hospitaltart: 11-79-5067LIDGZ OCCULT BLOODFECAL OCCULT BLOODAvita Health System Bucyrus Hospitaltart: 09-10-2012 LIPID SCREENLIPID SCREENCleHolzer Health Systemtart: 69-92-8609ZQETJAQYAJDKD SIGMOIDOSCOPYAvita Health System Bucy[facility] Hospitaltart: 40-01-6643FzooaankvfgCDHDWQXHAYstszfobz ClinicStart: 19-41-8750WET TESTINGHPV TESTINGAvita Health System Bucy[facility] Hospitaltart: 09[birth year]10-1988 PAP TESTINGPAP TESTINGCleHolzer Health Systemtart: 00-69-4604QQQTCBMEW B (1 of 3 - Risk 3-dose series)HEPATITIS B (1 of 3 - Risk 3-dose series)[facility] Start: 91-03-6139Gazce microalbumin profileDTAP,TDAP,TD (1 - Tdap)[facility] Hospitaltart: 62-60-3398CFCUNN PCP TEAM CHRONIC DISEASE VISITANNUAL PCP TEAM CHRONIC DISEASE VISITAvita Health System Bucyrus Hospitaltart: 63-91-9715Nfrtzuhvb B surface antibody levelLDL CHOLESTEROLCleHolzer Health Systemtart: 58-49-1619UUK SCREENINGHIV SCREENINGAvita Health System Bu[facility] Hospitaltart: 73-34-7502Cfjzp depression screening assessment DEPRESSION SCREENINGAvita Health System Bu[facility] Hospitaltart: comp foot exam completed DIABETIC FOOT EXAMCleHolzer Health Systemtart: 13-16-8664Cubrlsiyo B screeningURINE ALBUMIN:CREATININE RATIOAvita Health System Bu[facility] Hospitaltart: 81-98-1090Bkayymout C antibody, confirmatory testDILATED RETINAL EXAMAvita Health System Bucyrus Hospitaltart: 09[birth year]10-1973 PNEUMOCOCCAL (1 - PCV)PNEUMOCOCCAL (1 - PCV)[facility] Hospitaltart: 1965 HEPATITIS B (1 of 3 - 3-dose series)HEPATITIS B (1 of 3 - 3-dose series) [facility] HospitalAntibody to Scl-70 measurementK[facility]tering Health [facility] Comprehensive metabolic 2000 panel - Serum or PlasmaKettering Health TroyComprehensive metabolic 2000 panel - Serum or PlasmaKettering Health TroyComprehensive metabolic 1999 panel - Serum or [facility]Comprehensive metabolic 1999 panel - Serum or Plasma [facility] TroyCT Abdomen and Pelvis WO contrastKettering Health TroyInsulin [Units/volume] in Serum or PlasmaKettering Health TroyInsulin [Units/volume] in Serum or [facility] DaytonPatient referralAultman Hospital Work Phone: Rheumatoid factor [Units/volume] in Serum or Plasma [facility] TroyUrine cultureK[facility]tering Health [facility] XR Hip - left 2 [facility] Hip - right 2 Views [facility] TroyXR Lumbar spine 4 [facility] Shoulder - left [facility] Immunizations Immunization DateImmunizationNotesCare VoevyxidNkgyelvt91-28-9485vrptaiu toxoid, reduced diphtheria toxoid, and acellular pertussis vaccine, adsorbedDavid Girvin DO Work Phone: [facility]10-26-2021influenza, seasonal, injectablePatient ObjectionDawn Fitt Other [employer] Other [id number]-04 Vaccine Pfizer - Documentation Purposes OnlyChristopher Mk Other [facility]04-15-2021COVID-19 Vaccine Pfizer - Documentation Purposes OnlyChristopher Mk Other [facility]04-22-2019Rocephin 500 mgChristopher Mk Other [employer] Other [id number] per 15 mgChristopher Mk Other [employer] Other 09-22-2015TB TestChristopher Mk Other [employer] Other [id number] toxoid, reduced diphtheria toxoid, and acellular pertussis vaccine, adsorbedChristopher Mk Other [facility] TroyNEGATED: Highlighted row has not occurred!24-36-8693cpcdymrwn, seasonal, injectablePatient Objection Jeff Acostacassi Other [facility] Payers DatePayer CategoryPayerPolicy [id number]-vnc [id number] Health InsuranceAETNA AETNA CHOICE POS II [id number] 2020-Present [phone] [address] [place] [address] [id number] [id number].3.211951.315 56-77-7918Rsqzfyz Health Insurance1.2.840.323069.1.13.159.2.7.3.690151.315 [id number] 2.840.1.075059.3.579.2.31184-30-0034Lqnhcdz2118541 2.840.1.416005.3.579.2.04934-14-5169Kydjutw6574475 2.840.1.508302.3.579.2.03387-97-2961Okioinq7550142 2.16840.1.881558.3.579.2.92409-82-4578Dyuurti4034498 2.840.1.889069.3.579.2.45733-70-5789Yfntryf3900510 2.840.1.591429.3.579.2.25822-04-8200Apmkehe4307524 2.840.1.974020.3.579.2.52199-09-5402Eaeedyi1708426 2.840.1.186811.3.579.2.74535-58-1540Vnvdtgy4123313 2.840.1.834011.3.579.2.46049-13-8127Ieezwkk4495565 2.840.1.762857.3.579.2.40150-79-6348Bqlridu382320702 2.840.1.353397.3.579.2.48718-10-0342Gngigoo210083232 2.0.1.710081.3.579.2.67430-66-6526Tdoxgxq647857625 2.0.1.497770.3.579.2.08377-72-4380Twzhxky51274483 2.840.1.587402.3.579.2.90569-47-9420Baotiiq0238255 2.840.1.033674.3.579.2.976963-89-2122Vnsqdvp1598639 2.0.1.838226.3.579.2.117394-10-5498Wpydkzx2864137 2.840.1.011131.3.579.2.024055-45-5552Nfupizd2222146 2.840.1.049740.3.579.2.761684-37-1548Akqrwox7102333 2.840.1.935085.3.579.2.673748-91-7124Btnbzmb924634 2.840.1.283594.3.579.2.889582-08-5818Tmaljvh072049 2.0.1.382735.3.579.2.792798-40-7463Iitikxx166394 2.840.1.124050.3.579.2.903012-21-7592Lbvanlz771413 2.0.1.373003.3.579.2.173046-48-8239Xewkxoe046480470 2.0.1.474925.3.579.2.66458-63-3491Okzuned853687253 2..1.480492.3.579.2.58789-49-1571Qnfnqya485188250 2..1.176093.3.579.2.45855-08-3245Veuddnr283887229 2..1.259768.3.579.2.99370-22-8537Jwrigwq Health MwnlwryjxO961088250 2..1.017787.19UnknownAETNAPrivate Health [id number] 59290000 2.840.1.403935.3.579.2.140Kyxpisb70617283 2.0.1.843401.3.579.2.921Lelujjs82115354 2..1.952428.3.579.2.531 Aoaehxg11563905 2..1.181592.3.579.2.531 Social History DateTypeDetailFacilityStart: 09-20-2015 End: 27-50-4165Jrwqrbh smoking status NHISNever smoked tobaccoMartins Ferry Hospital Start: 43-78-1277Csdncmt use and exposureSmokeless tobacco non-userAvita Health System Bucyrus Hospitaltart: 06-16-2021 End: 96-03-6634Vkmpwwj intakeNot AskedAvita Health System Bucyrus Hospitaltart: 62-06-3304Bzf [facility]: 09-23-2021 End: 70-86-5284Sjvxfarq to SARS-CoV-2 (event)Not sureAvita Health System Bucyrus Hospitaltart: 35-56-2191Prpxnrh intakeEx-drinker (finding)[facility] Hospitaltart: 10-13-2021 History SDOH Alcohol CommentrarelThe [facility] Hospitalex Assigned At [facility] Campustart: 06-03-2024 End: 06-72-5217IenRgftpk (finding)[facility] Functional Status PjguSoyzupbnetPgajvfFnskgajv47-43-1683Voktwtldgi StatusN/AFMiddletown Hospital Clinical Notes 12-16-2011 to 02-24-2025 Note Date & CajoKxhqRerjqifr54-46-5539 Evaluation note* Author Jeff Jon [facility] TroyAuthoredOctober 2024 12:00pmThe above note written by ___Gail Saul____ acting as human recorder, note dictated by Dr. Jones .I performed the above HPI, ROS, and Examination. I formulated and dictated the treatment plan and was present for entire encounter. Jeff Jon D.O. [facility] Work Phone: 1(334) 573-425309-22-2025 NoteUT Cardiology - [facility] Subjective Canelo Pathak is a 59 [...] Asthma Binge eating disorder BMI 50.0-59.9, adult (CMS/[facility]) CFS (chronic fatigue syndrome) Cholesteatoma of attic of ear, right Diabetes (CMS/HCC) Elevated blood pressure reading Fibromyalgia Gastroesophageal reflux disease with esophagitis Heraclio's disease Hepatitis Hyperlipidemia Hypertension Hypothyroidism Metabolic syndrome Asymmetric SNHL (sensorineural hearing loss) Osteoarthritis Other long term care pharmacist (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 Palpitation Polyarthralgia Pulsatile tinnitus of right ear Right-sided tinnitus Seasonal allergies Type 2 diabetes mellitus with hyperglycemia, without long-term current use of insulin ([facility]) UTI (urinary tract infection) Vitamin [...] and GERD who was admitted to the [facility] on 08/05/2024 with chest pressure and palpitations. [...] sleep disturban (more content not included)... [facility] NoteUT Cardiology - [facility] Subjective Canelo Pathak is a 59 [...] Asymmetric SNHL (sensorineural hearing loss) Osteoarthritis Other long term care pharmacist (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 Palpitation Polyarthralgia Pulsatile tinnitus of right ear Right-sided tinnitus Seasonal allergies Type 2 diabetes mellitus with hyperglycemia, without long-term current use of insulin ([facility]) UTI (urinary tract infection) Vitamin [...] and GERD who was admitted to the [facility] on 08/05/2024 with chest pressure and palpitations. [...] She is not ill-appearing. (more content not included)...[facility]07-10-20[facility] Evaluation note* Author Jeff Jon [facility] TroyAuthoChildren's [facility] 2024 12:34pmThe above note written by ___Gail Saul____ acting as human recorder, note dictated by Dr. Jones .I performed the above HPI, ROS, and Examination. I formulated and dictated the treatment plan and was present for entire encounter. Jeff Jon D.O. Author Jeff [facility] 2024 10:35amThe above note written by ___Gali Saul____ acting as human recorder, note dictated by Dr. Jones .I performed the above HPI, ROS, and Examination. I formulated and dictated the treatment plan and was present for entire encounter. Jeff Jon D.O. [facility] Work Phone: 1(175) 232-315207-10-2025 Evaluation note* Author Jeff Jon [facility] 2024 12:34pmThe above note written by ___Gail Saul____ acting as human recorder, note dictated by Dr. Jones .I performed the above HPI, ROS, and Examination. I formulated and dictated the treatment plan and was present for entire encounter. Jeff Jon D.O. [facility] Work Phone: 1(187) 554-167204-14-2025 Evaluation note* Author Jeff Jon [facility] 2024 3:45pmThe above note written by ___Gail Saul____ acting as human recorder, note dictated by Dr. Jones .I performed the above HPI, ROS, and Examination. I formulated and dictated the treatment plan and was present for entire encounter. Jeff Jon D.O. [facility] Work Phone: 1(302) 634-830604-14-2025 Evaluation note* Author Jfef Jon [facility] 2024 3:45pmThe above note written by ___Gail Saul____ acting as human recorder, note dictated by Dr. Jones .I performed the above HPI, ROS, and Examination. I formulated and dictated the treatment plan and was present for entire encounter. Jeff Jon D.O. Author Jeff Jon [facility] 2024 10:35amThe above note written by ___Gail Saul____ acting as human recorder, note dictated by Dr. Jones .I performed the above HPI, ROS, and Examination. I formulated and dictated the treatment plan and was present for entire encounter. Jeff Jon D.O. [facility] Work Phone: 1(726) 258-205104-07-2025 NoteUT Cardiology [facility] Taylor Pathak is a 58 y.o. year old female patient being [facility] to [facility]. Patient complains of chest pain and palpitations. Patient states she was in In patient 2 weeks ago at [facility] due to the palpitation. Patient she states she has had no change in how she feels. Still feeling palpitations, fatigued, SOB. Patient Active Problem List Diagnosis Abnormal taste in mouth Acid reflux Allergic rhinitis due to animal hair and dander Anxiety Asthma Binge eating disorder BMI 50.0-59.9, adult (CMS/[facility]) CFS (chronic fatigue syndrome) Cholesteatoma of attic of ear, right Diabetes (CMS/HCC) Elevated blood pressure reading Fibromyalgia Gastroesophageal reflux disease with esophagitis Heraclio's disease Hepatitis Hyperlipidemia Hypertension Hypothyroidism Metabolic syndrome Asymmetric SNHL (sensorineural hearing loss) Osteoarthritis Other alf (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 Palpitation Polyarthralgia Pulsatile tinnitus of right ear Right-sided tinnitus Seasonal allergies Type 2 diabetes mellitus with hyperglycemia, without long-term current use of insulin ([facility]) UTI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 Immunization History Administered Date(s) Administered COVID-19 vaccine, age 12+ yr ([employer] - PURPLE TOP) 09/02/2020 09/23/2020 Social History [...] >=60 mL/min/1.73m? 103 Corrected (more content not included)...[facility]05-26-2022 History of Present illness Narrative* Anila Jimenez APRN.[employer] SERVICE SALES REPRESENTATIVES - 10/13/2021 4:15 PM EDT ENDOCRINOLOGY, DIABETES & METABOLISM DIABETES FOLLOW UP VISIT This Team Access Model visit is a phone encounter and Canelo Pathak has consented to this virtual encounter. This is a virtual visit using Virtual Telephone [employer] Telegraph video visit. It is a required patient-provider [...] capsule daily. mometasone furoate(NASONEX 50 MCG/ACTUATION SPRAY) Marianna twice in each nostril once daily. cetirizine hcl(ZYRTEC 10 MG TAB) Take one(1) tablet daily. fluticasone/salmeterol(ADVAIR DISKUS 250 MCG-50 MCG/DOSE FOR INHALATION) Take one(1) inhalation twice daily; rinse and gargle mouth with water after each use. No current facility-administered medications for this visit. Immunization History Administered Date(s) Administered COVID-19 vaccine, age 12+ yr ([facility] - [facility]) 09/02/2020 09/23/2020 Social History Tobacco Use [...] which included preparing to see the patient, oreu-qe-ivez patient care, completing clinical documentation, obtaining and/or reviewing separately obtained history, performing a medically appropriate examination, counseling and educating the pat ient/family/caregiver and ordering medications, tests, or procedures. Anila Jimenez APRN.[facility] [place] documented [facility]22 NoteHNO ID: [id number] Author: Leena Seymour MD Service: ? Author [...] mcg (5,000 unit) cap - Vitamin D Penryn (iFlexMe for Eduora) Take 1 capsule by mouth daily with food. - montelukast (SINGULAIR) 10 mg tablet Take 10 mg by mouth daily at bedtime. - MULTIVIT-MINERALS/FERROUS GLUC (CENTRAM-CARE ORAL) Take by mouth twice daily. - esomeprazole mag trihydrate(NEXIUM 40 MG CAP) Take one(1) capsule daily. - mometasone furoate(NASONEX 50 MCG/ACTUATION SPRAY) Marianna twice in each nostril once daily. - [...] effexor. Will check routine labs. Leena Seymour [facility]05-20-2022 History of Present illness Narrative* Leena [...] 125 mcg (5,000 unit) cap Vitamin D Penryn (iFlexMe for Eduora) Take 1 capsule by mouth daily with food. montelukast (SINGULAIR) 10 mg tablet Take 10 mg by mouth daily at bedtime. MULTIVIT-MINERALS/FERROUS GLUC (CENTRAM-CARE ORAL) Take by mouth twice daily. esomeprazole mag trihydrate(NEXIUM 40 MG CAP) Take one(1) capsule daily. mometasone furoate(NASONEX 50 MCG/ACTUATION SPRAY) Marianna twice in each nostril once daily. cetirizine [...] labs. Leena Seymour MD documented in this encounterMart[facility]05-16-[facility]22 Miscellaneous Notes* Telephone Encounter - Renea Mcfarland Graphics Coordinator - 10/03/2021 3:02 PM EDT Patient called in asking for routine lab orders to be placed. Patient stated she will schedule her appointment soon. Done. Asad Ansari MD documented in this encounterMartins Ferry Hospital03-04-2022 NoteHNO ID: [id number] Author: Asad Ansari MD Service: ? Author Type: Physician Type: Progress Notes Filed: 07/22/2021 10:43 AM Note Text: VIRTUAL VISIT PROGRESS NOTE This is a virtual visit using [employer] video platform. It required patient-provider interaction for [...] mcg (5,000 unit) cap - Vitamin D Penryn ([employer]) Take 1 capsule by mouth daily with food. - montelukast (SINGULAIR) 10 mg tablet Take 10 mg by mouth daily at bedtime. - MULTIVIT-MINERALS/FERROUS GLUC (CENTRAM-CARE ORAL) Take by mouth twice daily. - esomeprazole mag trihydrate(NEXIUM 40 MG CAP) Take one(1) capsule daily. - mometasone furoate(NASONEX 50 MCG/ACTUATION SPRAY) Marianna twice in each nostril once daily. - [...] Date(s) Administered COVID-19 vaccine, age 12+ yr ([facility]) 09/23/2020 Labs: HbA1c. TSH. [...] 2 months - virt (more content not included)...[facility]02-14-[facility] Evaluation note* Encounter Date Diagnosis Assessment Notes Treatment Notes Treatment Clinical Notes Jun, Lumbar pain (ICD-10 - M54.50) Jun,Leg pain (ICD-10 - M79.606)bilateral Jun,Hyperlipidemia (ICD-10 - E78.5) [facility] Other 02-02-2022 Miscellaneous Notes* Telephone Encounter - Neema Adams - 06/22/2021 9:09 AM EST Patient called in requesting the results of her labs that she had completed on 06/16/2021 Canelo can be reached at [phone] () or can be reached through [employer]. documented in this encounterMartins Ferry Hospital01-27-2022 NoteHNO ID: [id number] Author: Asad Ansari MD Service: ? Author Type: Physician Type: Progress Notes Filed: 06/16/2021 1:56 PM Note Text: Last Visit: This is the first visit. Ms. Pathak is here for follow up regarding her DM Type 2 and hypothyroidism. Current Immunizations: Most Recent Immunizations Administered Date(s) Administered COVID-19 vaccine, age 12+ yr ([facility] - [facility]) 09/23/2020 PHYSICAL EXAMINATION: BP [...] mouth daily before breakfast. - Vitamin D Penryn ([employer]) Take 1 capsule by mouth daily with food. - montelukast (SINGULAIR) 10 mg tablet Take 10 mg by mouth daily at bedtime. - MULTIVIT-MINERALS/FERROUS GLUC (CENTRAM-CARE ORAL) Take by mouth twice daily. - esomeprazole mag trihydrate(NEXIUM 40 MG CAP) Take one(1) capsule daily. - mometasone furoate(NASONEX 50 MCG/ACTUATION SPRAY) Marianna twice in each nostril once daily. - [...] Hair?: Yes Cold Intolerance: Yes Heat Intolerance?: [facility]* Encounter Date Diagnosis Assessment Notes Treatment Notes Treatment Clinical Notes Apr, Diabetes (ICD-10 - E11.9) [facility] Other 10-27-2021 Evaluation note* Encounter Date Diagnosis Assessment Notes Treatment Notes Treatment Clinical Notes Feb, Hypothyroidism, unspecified (ICD -10 - E03.9) Feb,olyarthralgia (ICD-10 - M25.50) [employer] Other 10-26-2021 Evaluation note* Encounter Date Diagnosis [...] she only feels good when she is abel steroid which she has been on sporadically [...] weeks and still has the order so sheshould have this done for a baseline reading. I did review her DEXA scan results with her today. Bone density is above the minimum desirable level at all skeletal sites tested. This patient's bone mineral density is above the minimum desirable level (T- score -1.0 or better) at all sites measured. [...] and would like to start Prednisone. Side effects/risks/benefits of medication were reviewed. I would like her to have her lab drawn prior to starting the Prednisone. She is to call me by theend of the first month of Prednisone with how she is doing. Feb,iabetes (ICD-10 - E11.9) We discussed that Prednisone [...] also help her lose weight as well. Feb,Hypothyroidism, unspecified (ICD-10 - E03.9) Again, she will be able to have lab drawn in two weeks to check her thyroid levels. Feb,Other alf (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 (ICD-10 - Z79.899) Feb,elvic pain (ICD-10 - R10.2) She voices that [...] of her pelvis to rule out abnormalities. Feb,Other She has plantar fasciitis and was to [...] says by 5-6 weeks it was gone. [facility] Other 10-07-2021 Evaluation note* Encounter Date Diagnosis Assessment Notes Treatment Notes Treatment Clinical Notes Feb, Bronchitis (ICD-10 - J40) [facility] Other 10-04-2021 Evaluation note* Encounter Date Diagnosis Assessment Notes Treatment Notes Treatment Clinical Notes Feb, Asthma (ICD-10 - J45.909) Feb,GERD (gastroesophageal reflux disease) (ICD-10 - K21.9) Feb,easonal allergies (ICD-10 - J30.2) [facility] Other 07-28-2012 History general Narrative - Reported* Type Description Date Medical History asthma Medical Pyrmikf16/28/12 Right hand x-rayMedical Cuocqly03/28/12 Blood work Lipid, CMP, CBC, T4, TSH, HGA1C (6.3)Medical Joxrwze31/22/12-stress test at [facility] Medical HistoryHypothyroidismMedical Deqjahc7099 mammogramMedical History12/21/15 EKGMedical History12/29/15 [facility]urgical Historytonsillectomy and pegdggckoymkp3435Nswwqbxi Historycholecystectomy08/2008Surgical Historygall bladder08/2008Surgical Historytubes in vgqe5241/78Surgical Historylaproscopic fibroid rgszkua6205/16/2010Surgical Cfdwwevbmxunixptlpf-ytxqh74-3793Wimxcvjm Historymammogram [facility] - [facility] Alvarez2/27/18Surgical HistoryERCP 09/17/17Hospitalization Historygall bladder08/2008Hospitalization History tonsillectomyHospitalization Historytubes in earsHospitalization History heart(over night opservation)spitalization Onnwbogtwoenrsaw7578 Hospitalization Historyabnormal liver function dbfo4210 [facility] Other 07-28-2012 History general Narrative - Reported* Type Description Date Medical History asthma Medical Gdmqogf01/28/12 Right hand x-rayMedical Gxwikky13/22/12[facility] HistoryHypothyroidismMedical Kyzoqtp6056 mammogramMedical History 12/21/15 EKGMedical History12/29/15 Stress Test NOSurgical Historytonsillectomy and yafgzykjlavmk2274Ymljgqte Historycholecystectomy08/2008Surgical Historygall bladder08/2008Surgical Historytubes in kmsl2213/78Surgical Historylaproscopic fibroid jbblndt2805/16/2010Surgical Dvubbhfngizkfantafg-wlufv88-1042Scavhdfk Historymammogram [facility] - [facility] Alvarez07/17/18Surgical HistoryERCP 09/17/17Hospitalization Historygall bladder08/2008Hospitalization History tonsillectomyHospitalization Historytubes in earsHospitalization History heart(over night opservation)spitalization Yxoobzistqroyfoy6667 Hospitalization Historyabnormal liver function jexf0310 [facility] Other 07-28-2012 History general Narrative - Reported* Type Description Date Medical History asthma Medical Gozmeja65/28/12 Right hand x-rayMedical Lktmqis03/22/12[facility] HistoryHypothyroidismMedical Xuumtlr4028 mammogramMedical History 12/21/15 EKGMedical History12/29/15 Stress Test NOMedical Historyspinal stenosis Surgical Historytonsillectomy and olosktkgjtetp4451Bqaexvpw History cholecystectomy08/2008Surgical Historygall bladder08/2008Surgical Historytubes in rxpr5112/78Surgical Historylaproscopic fibroid ywdkfpt5305/16/2010Surgical History xfbopgjhvzbu-xbmny07-4732Elojynnw Historymammogram [facility] - [facility] Alvarez07/17/17urgical HistoryERC09/17/17Hospitalization Historygall bladder 08/2008Hospitalization HistorytonsillectomyHospitalization Historytubes in ears Hospitalization Historyheart(over night opservation)08/2007Hospitalization Nkiyiehvqwgauexd2078Ttyldsvxpljbokh Historyabnormal liver function xjhy2244 [facility] [employer] Other Evaluation note* Diagnosis Acquired hypothyroidism- Primary Unspecified hypothyroidism Controlled type 2 diabetes mellitus without complication, without long-term current use of insulin ([facility]) [facility] this encounter [facility]* Diagnosis Fibromyalgia- Primary Mylagia and myositis, unspecified ALDEN (generalized anxiety disorder) Generalized anxiety disorder documented in this encounter [facility] note* Diagnosis Type 2 diabetes mellitus with hyperglycemia, without long-term current use of insulin (HCC)- Primary Heraclio's disease Chronic lymphocytic thyroiditis documented in this encounter [facility]Evalubay[facility] noteNo InformationNoDepartment of [facility] [employer] Other Evaluation noteSteen [employer] Other Evaluation note* Diagnosis Onset Date Resolution Status Anxiety acuteAsthmaacuteDiabetesacuteElevated blood pressure readingacuteFatigueacute GERD (gastroesophageal reflux disease)acuteHyperlipidemiaacuteHypothyroidism acuteOther chronic painacuteOther alf (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acute PalpitationacuteVitamin D deficiencyacute [facility] Work Phone: Evaluation note* Diagnosis Onset Date Resolution Status Chronic pain acuteHip painacuteLumbar stenosisacuteSacroiliitisacuteChronic painacuteHip pain acuteLumbar radiculopathyacuteLumbar stenosisacuteSacroiliitisacuteChronic pain acuteLumbar radiculopathyacuteLumbosacral spondylosisacuteSacroiliitisacute [facility] Work Phone: Evaluation note* Diagnosis Onset Date Resolution Status Chronic pain acuteHip painacuteLumbar stenosisacuteSacroiliitisacuteChronic painacuteHip pain acuteLumbar radiculopathyacuteLumbar stenosisacuteSacroiliitisacuteChronic pain acuteLumbar radiculopathyacuteLumbosacral spondylosisacuteSacroiliitisacute Chronic painacuteLumbar radiculopathyacuteLumbosacral spondylosisacute Sacroiliitisacute [facility] Work Phone: Evaluation note* Diagnosis Onset Date Resolution Status Chronic pain acuteLumbar radiculopathyacuteLumbosacral spondylosisacuteSacroiliitisacute Chronic painacuteLumbar radiculopathyacuteLumbosacral spondylosisacute SacroiliitisacuteAsthmaacuteGERD (gastroesophageal reflux disease)acuteSeasonal allergiesacute [facility] Work Phone: History general Narrative - ReportedNortPenn Highlands Healthcare [employer] Other History general Narrative - Reported* Type Description Date Medical History asthma Medical HistoryHypothyroidismMedical Historyspinal stenosisMedical History diabetes mallitusMedical Historychronic depressionMedical HistoryanxietyMedical HistoryhyperlipidemiaMedical HistoryobesityMedical HistoryfibromyalgiaMedical Historyshoulder painSurgical Historytonsillectomy and ltmpsrzyzapcw9100Htpqhgsd Historycholecystectomy08/2008Surgical Historygall bladder08/2008Surgical History tubes in vxzy4784/78Surgical Historylaproscopic fibroid pudzoea0705/16/2010 Surgical Cpipakmzeeveobhalgc--3107Mlsnujdo Historymammogram [facility] Alvarez07/17/urgical HistoryERCP4Hospitalization Historygall bladder08/2008Hospitalization HistorytonsillectomyHospitalization Historytubes in earsHospitalization Historyheart(over night opservation)08/2007 Hospitalization Mloqtpvagqeoccgo6813Twjzixduarfgrxt Historyabnormal liver function fcsc8256 [facility] [employer] Other History general Narrative - Reported* Type Description Date Medical History asthma Medical HistoryHypothyroidismMedical Historyspinal stenosisMedical History diabetes mallitusMedical Historychronic depressionMedical HistoryanxietyMedical HistoryhyperlipidemiaMedical HistoryobesityMedical HistoryfibromyalgiaMedical Historyshoulder painMedical Historyseasonal allergiesMedical HistoryEsophageal refluxSurgical Historytonsillectomy and dexrjljhatebo6704Xkskozob History cholecystectomy08/2008Surgical Historygall bladder08/2008Surgical Historytubes in aqmq0325/78Surgical Historylaproscopic fibroid boywdts1205/16/2010Surgical History rilksqywbvtx-affdh05-4182Clpnhjeh Historymammogram [facility] - [facility] Alvarez07/17/17urgical HistoryERC09/17/17Hospitalization Historygall bladder 08/2008Hospitalization HistorytonsillectomyHospitalization Historytubes in ears Hospitalization Historyheart(over night opservation)08/2007Hospitalization Evtvuquaxtmmncjp2399Ubeausspbqghnat Historyabnormal liver function pwnu5801 [facility] [employer] Other Hospital course Narrative No data available for this section [facility] No data available for this section [facility] Discharge instructionsAmbulatory Orders* Referral to Orthopedics Time Frame: 06/26/24, Location: None [facility] Work Phone: Progress note No data available for this section [facility] HospitalReason for referral (narrative)No reason for referral information availableUniversity Hospitals [facility] Work Phone: Reason for visit Narrativereview labs, discuss multiple issues, see treatment plan for further informationNobarton county memorial hospital [employer] Other Reason for visit Narrativereview labs, discuss multiple issues, see treatment planNobarton county memorial hospital [employer] Other Summary Purpose Family History Relationship Condition Age at Onset Recorded Date/T erlin brother Hypertension Unknown fatherHistory of strokeUnknownHypertensionUnknownHeart diseaseUnknownDiabetes mellitusUnknownDeceasedUnknownRenal failureUnknowngrandparentDeceasedUnknown History of strokeUnknowngrandparentHypertensionUnknownNot SpecifiedDeceased Unknown Relationship Condition Age at Onset Recorded Date/T erlin brother Hypertension Unknown fatherHistory of strokeUnknownHypertensionUnknownHeart diseaseUnknownDiabetes mellitusUnknownDeceasedUnknownRenal failureUnknowngrandparentDeceasedUnknown History of strokeUnknowngrandparentHypertensionUnknownNot SpecifiedDeceased Unknown Relationship Condition Age at Onset Recorded Date/T erlin brother Hypertension Unknown fatherHistory of strokeUnknownHypertensionUnknownHeart diseaseUnknownDiabetes mellitusUnknownDeceasedUnknownRenal failureUnknowngrandparentDeceasedUnknown History of strokeUnknowngrandparentHypertensionUnknownmotherDeceasedUnknown Relationship Condition Age at Onset Recorded Date/T erlin brother Hypertension Unknown fatherHistory of strokeUnknownHypertensionUnknownHeart diseaseUnknownDiabetes mellitusUnknownDeceasedUnknownRenal failureUnknowngrandparentDiabetes mellitus UnknowngrandparentHypertensionUnknownmotherDeceasedUnknown Relationship Condition Age at Onset Recorded Date/T erlin brother Hypertension Unknown fatherHistory of strokeUnknownHypertensionUnknownHeart diseaseUnknownDiabetes mellitusUnknownDeceasedUnknownRenal failureUnknowngrandparentDiabetes mellitus UnknowngrandparentHypertensionUnknownmotherDeceasedUnknownPulmonary embolism Unknown Relationship Condition Age at Onset Recorded Date/T erlin brother Hypertension Unknown fatherHistory of strokeUnknownHypertensionUnknownHeart diseaseUnknownDiabetes mellitusUnknownDeceasedUnknownRenal failureUnknowngrandparentDiabetes mellitus UnknownmotherDeceasedUnknownPulmonary embolismUnknown Advance Directives Advance Directive Response Recorded Date/ Time Advance Directives No September 14 018 9:20pm Advance Directive Response Recorded Date/ Time Advance Directives No September 14 018 8:20pm Reason for Referral SpecialtyDiagnoses / ProceduresReferred By ContactReferred To [facility] Diagnoses Fibromyalgia Procedures CONSULT TO [facility] ([facility]) OFFICE/OUTPATIENT [facility] 60-74 MINUTES Leena Seymour MD [address] [place] [address] Referral IDStatusReasonStart DateExpiration DateVisits RequestedVisits [id number] Review PCP Requested Referral Reason appt pt needs cons ult to discuss weight loss, diabetes Diagnosis 1 Diabetes (E11.9) Referral Organization [facility] Family Mediclourdes Davison Referring Provider First Name Jeff Referring Provider Last Name Dontrell Referring Provider Specialty Family Prac debbi Referred Organization [facility] Referred Provider Carl Valdivia Jr. Referred Address [address],[place], [place],[address] Referred Provider Specialty Internal Med icine Referral Priority Routine General Notes Svetlana Talbert 03/15/2021 01:33:19 PM > [facility] form faxed. pt understands she will be contacted to schedule the appt Reason appt pt needs scre ening colonoscopy Diagnosis 1 Colon cancer screeni ng (Z12.11) Referral Organization [facility] Family Ryanne Davison Referring Provider First Name Jeff Referring Provider Last Name Dontrell Referring Provider Specialty Family Prac debbi Referred Organization [facility] Gastroenterolo gy Referred Provider Howard Kunz Referred Address [address] ,[place], [place],[address] Referred Provider Specialty Gastroentero logy Referral Priority [...] NOMS Referred Provider Jennie Guillermo Referred Address ,[place], [place],[address] Referred Provider Specialty Ear, Nose an d Throat Referral Priority Routine Referral Appointment Date 2022-08-14 General Notes NiitshSvetlana 08/14/2022 10:48:22 AM > referral sent p2p [...] disease) Hyperlipidemia Hypothyroidism Other chronic pain Other alf (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 Palpitation Vitamin D deficiency Chief Complaint review labs BP/discuss meds/ENTReason for VisitAnxiety Asthma Diabetes Elevated blood pressure reading Fatigue GERD (gastroesophageal reflux disease) Hyperlipidemia Hypothyroidism Other chronic pain Other alf (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 Palpitation Vitamin D deficiency Asymmetrical sensorineural hearing loss Chronic pain Elevated blood pressure reading Tinnitus Chief Complaint review labs BP/discuss meds/ENT review thyroid labsReason for VisitAnxiety Asthma Diabetes Elevated blood pressure reading Fatigue GERD (gastroesophageal reflux disease) Hyperlipidemia Hypothyroidism Other chronic pain Other long term care pharmacist (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 Palpitation Vitamin D deficiency Asymmetrical sensorineural hearing loss Chronic pain Elevated blood pressure reading Tinnitus Asymmetrical sensorineural hearing loss Chronic pain Elevated blood pressure reading Hypothyroidism Vomiting Chief Complaint BP/discuss meds/ENT review thyroid labs REFF BY DR. JEFF Bauer for VisitAsymmetrical sensorineural hearing loss Chronic pain Elevated blood pressure reading Tinnitus Asymmetrical sensorineural hearing loss Chronic pain Elevated blood pressure reading Hypothyroidism Vomiting Chronic pain Hip pain Lumbar stenosis Sacroiliitis Chief Complaint BP/discuss meds/ENT review thyroid labs REFF BY DR. JEFF JON M48.061 M25.559Reason for VisitAsymmetrical sensorineural hearing loss Chronic pain Elevated blood pressure reading Tinnitus Asymmetrical sensorineural hearing loss Chronic pain Elevated blood pressure reading Hypothyroidism Vomiting Chronic pain Hip pain Lumbar stenosis Sacroiliitis Chief Complaint BP/discuss meds/ENT review thyroid labs REFF BY DR. JEFF JON M48.061 M25.559 FOLLOW UP AFTER IMAGINGReason for VisitAsymmetrical sensorineural hearing loss Chronic pain Elevated blood pressure reading Tinnitus Asymmetrical sensorineural hearing loss Chronic pain Elevated blood pressure reading Hypothyroidism Vomiting Chronic pain Hip pain Lumbar stenosis Sacroiliitis Chronic pain Hip pain Lumbar radiculopathy Lumbar stenosis Sacroiliitis Chief Complaint review thyroid labs REFF BY DR. JEFF JON M48.061 M25.559 FOLLOW UP AFTER IMAGING right L3,4 transforaminal epidural injReason for VisitAsymmetrical sensorineural hearing loss Chronic pain Elevated blood pressure reading Hypothyroidism Vomiting Chronic pain Hip pain Lumbar stenosis Sacroiliitis Chronic pain Hip pain Lumbar radiculopathy Lumbar stenosis Sacroiliitis Chief Complaint review thyroid labs REFF BY DR. JEFF JON M48.061 M25.559 FOLLOW UP AFTER IMAGING right L3,4 transforaminal epidural inj f/u after L3,4 LTR on rightReason for VisitAsymmetrical sensorineural hearing loss Chronic pain Elevated blood pressure reading Hypothyroidism Vomiting Chronic pain Hip pain Lumbar stenosis Sacroiliitis Chronic pain Hip pain Lumbar radiculopathy Lumbar stenosis Sacroiliitis Chronic pain Lumbar radiculopathy Lumbosacral spondylosis Sacroiliitis Chief Complaint REFF BY DR. JEFF WHITFIELD RVIN M48.061 M25.559 FOLLOW UP AFTER IMAGING right L3,4 transforaminal epidural inj f/u after L3,4 LTR on right BILATERAL SACROILIAC JOINT INJReason for VisitChronic pain Hip pain Lumbar stenosis Sacroiliitis Chronic pain Hip pain Lumbar radiculopathy Lumbar stenosis Sacroiliitis Chronic pain Lumbar radiculopathy Lumbosacral spondylosis Sacroiliitis Chief Complaint REFF BY DR. JEFF WHITFIELD RVIN M48.061 M25.559 FOLLOW UP AFTER IMAGING right L3,4 transforaminal epidural inj f/u after L3,4 LTR on right BILATERAL SACROILIAC JOINT INJ FOLLOW UP AFTER ASHLEY SIReason for VisitChronic pain Hip pain Lumbar stenosis Sacroiliitis Chronic pain Hip pain Lumbar radiculopathy Lumbar stenosis Sacroiliitis Chronic pain Lumbar radiculopathy Lumbosacral spondylosis Sacroiliitis Chronic pain Lumbar radiculopathy Lumbosacral spondylosis Sacroiliitis Chief Complaint right L3,4 transfora kelton epidural inj f/u after L3,4 LTR on right BILATERAL SACROILIAC JOINT INJ FOLLOW UP AFTER ASHLEY SI H yr f/u Asthma, Seasonal Allergies, GERDReason for VisitChronic pain Lumbar radiculopathy Lumbosacral spondylosis Sacroiliitis Chronic [...] 2024 10:24am GERD (gastroesophageal reflux disease) F [facility] 2024 10:24am Nausea July 16, 2024 [...] 2024 10:24am GERD (gastroesophageal reflux disease) F [facility] 2024 10:24am Nausea July 16, 2024 [...] 2024 9:32 am GERD (gastroesophageal reflux disease) 2024 9:32am Seasonal allergies December 08, 2024 9:32 am Chief Complaint Admit Date review labs November [...] 08, 2024 9:32am GERD (gastroesophageal reflux disease) [facility]2024 9:32am Seasonal allergies December 08, 2024 9:32 am CHF (congestive heart failure) February 242024 11:04am Chronic pain February 24, 2025 11 :04am Diabetes February 24, 2025 11 :04am Hyperlipidemia February 24, 2025 11 :04am Hypertension February 24, 2025 11 :04am Shoulder pain, left February 24, 2025 11 :04am Chief Complaint Admit Date H mo f/u Asthma December 08, 2024 9:32 am blood sugars/discuss meds October 7th, 2 025 11:04am review labs March 02, 2025 1 1:46am Reason for Visit Admit Date Asthma December 08, 2024 9:32 am COPD (chronic obstructive pu lmonary disease) with emphysema December 08, 2024 9:32am GERD (gastroesophageal reflux disease) J [facility]ista 2024 9:32am Seasonal allergies December 08, 2024 9:32 am CHF (congestive heart failure) February 242024 11:04am Chronic pain February 24, 2025 11 :04am Diabetes February 24, 2025 11 :04am Hyperlipidemia February 24, 2025 11 :04am Hypertension February 24, 2025 11 :04am Shoulder pain, left February 24, 2025 11 :04am CHF (congestive heart failure) February 182024 11:46am COPD (chronic obstructive pu lmonary disease) with emphysema March 02, 2025 11:46am Diabetes March 02, 2025 1 1:46am Hyperlipidemia March 02, 2025 1 1:46am Hypertension March 02, 2025 1 1:46am Hypothyroidism March 02, 2025 1 1:46am Polyarthralgia March 02, 2025 1 1:46am Sinus drainage March 02, 2025 1 1:46am Vitamin D deficiency March 02, 2025 11:46am Additional Source Comments INFORMATION SOURCE (unrecogn ized section and content) DATE CREATED AUTHOR 10/10/2018 [facility] DATE CREATED AUTHOR AUTHOR'S ORGANIZ ATION 05/13/2022 [facility] DATE CREATED AUTHOR AUTHOR'S ORGANIZ ATION 09/15/2022 [facility] DATE CREATED AUTHOR AUTHOR'S ORGANIZ ATION 12/19/2022 [facility] DATE CREATED AUTHOR AUTHOR'S ORGANIZ ATION 10/14/2023 [facility] DATE CREATED AUTHOR AUTHOR'S ORGANIZ ATION 10/24/2023 [facility] DATE CREATED AUTHOR AUTHOR'S ORGANIZ ATION 01/31/2024 [facility] DATE CREATED AUTHOR AUTHOR'S ORGANIZ ATION 11/30/2024 [facility] DATE CREATED AUTHOR AUTHOR'S ORGANIZ ATION 02/11/2025 [facility] Source Comments (unrecognize d section and content) In the event this informatio n is protected by the Federal Confidentiality of Alcohol and Drug Abuse Patient Records regulations: The Federal rules restrict any use of the information to criminally investigate or prosecute any alcohol or drug abuse patient.[facility] the event this information is protected by the Federal Confidentiality of Alcohol and Drug Abuse Patient Records regulations: The Federal rules restrict any use of the information to criminally investigate or prosecute any alcohol or drug abuse patient.[facility] the event this information is protected by the Federal Confidentiality of Alcohol and Drug Abuse Patient Records regulations: The Federal rules restrict any use of the information to criminally investigate or prosecute any alcohol or drug abuse patient.[facility] the event this information is protected by the Federal Confidentiality of Alcohol and Drug Abuse Patient Records regulations: The Federal rules restrict any use of the information to criminally investigate or prosecute any alcohol or drug abuse patient.[facility] the event this information is protected by the Federal Confidentiality of Alcohol and Drug Abuse Patient Records regulations: The Federal rules restrict any use of the information to criminally investigate or prosecute any alcohol or drug abuse patient.[facility] Reason for Visit (unrecogniz ed section and content) ReasonCommentsLab OrdersReasonCommentsThyroid ProblemDiabetesReasonComments AppointmentReasonCommentsPatient Question Care Teams (unrecognized sec tion and content) Team Status: Active Member Role Status Zach Jon DO Primary Care Provider Active Team Status: Inactive Member Role Status Zach Jon DO Primary Care Provider Active S tart: December 08, 2024 End: December 08, 2024Heidi FELISHA Rico ACNP-BCAttending ProviderActiveStart: December 08, 2024 End: December 08, 2024 Team Status: Active Member Role Status Zach Jon DO Primary Care Provider Active S tart: January 06, 2025 Neo Espino MDAttryan ProviderActiveStart: January 06, 2025 Team Status: Active Member Role Status Zach Jon DO Primary Care Provider Active S tart: January 27, 2025 Melly Hernandez ProviderActiveStart: January 27, 2025 Team Status: Inactive Member Role Status Zach Jon DO Primary Care Provider Active S tart: February 24, 2025 End: February 24, 2025Dakorin Jon DOAttryan ProviderActiveStart: February 24, 2025 End: February 24, 2025 Team Status: Inactive Member Role Status Zach Jon DO Primary Care Provider Active S tart: March 02, 2025 End: March 02, 2025Dakorin Jon DOAttending ProviderActiveStart: March 02, 2025 End: March 02, 2025 Team Status: Active Member Role Status Dates Jeff Girvin , DO Primary Care Provider Active Team Status: Active Member Role Status Dates Jeff Dontrell DO Primary Care Provider Active S tart: November 26, 2024 Jeff Jon , DOAttending ProviderActiveStart: November 26, 2024 Team Status: Inactive Member Role Status Dates Jeff Jon Primary Care Provider Active S tart: November 27, 2024 End: November 27, 2024Dakorin Shanecassi DOAttending ProviderActiveStart: November 27, 2024 End: November 27, 2024 Team Status: Inactive Member Role Status Dates Jeff Dontrell Primary Care Provider Active S tart: December 08, 2024 End: December 08, 2024Heidi Jacky , MATERIAL PLANNER ACNP-BCAttending ProviderActiveStart: December 08, 2024 End: December 08, 2024 Team Status: Active Member Role Status Zach Jon Primary Care Provider Active S tart: January 06, 2025 Neo Espino , MDAttending ProviderActiveStart: January 06, 2025 Team Status: Active Member Role Status Zach Jeff AcostaDO cassi Primary Care Provider Active S tart: January 27, 2025 Neo Espino , MDAttending ProviderActiveStart: January 27, 2025 Team Status: Inactive Member Role Status Dates Jeff Dontrell Primary Care Provider Active S tart: February 24, 2025 End: February 24, 2025Dakorin Shanecassi DOAttending ProviderActiveStart: February 24, 2025 End: February 24, 2025 Team Status: Inactive Member Role Status Dates Jeff Jon Primary Care Provider Active S tart: July 16, 2024 End: July 16atherine L Ly , DOAttending ProviderActiveStart: July 16, 2024 End: July 16, 2024 Team Status: Inactive Member Role Status Dates Jeff Dontrell Primary Care Provider Active S tart: July 30, 2024 End: July 30atherine L Ly , DOAttending ProviderActiveStart: July 30, 2024 End: July 30, 2024 Team Status: Inactive Member Role Status Dates Jeff Jon DO Primary Care Provider Active S tart: August 01, 2024 End: August 01atherine L Ly , DOAttending ProviderActiveStart: August 01, 2024 End: August 01, 2024 Team Status: Active Member Role Status Zach Jon DO Primary Care Provide r, Attending Provider Active Start: August 05, 2024 Team Status: Active Member Role Status Zach Shanecassi DO Primary Care Provider Active S tart: August 06, 2024 Joanne Smith ProviderActiveStart: August 06, 2024 Team Status: Inactive Member Role Status Zach Aguilar Dontrell DO Primary Care Provide r, Attending Provider Active Start: September 01, 2024 End: September 01, 2024 Team Status: Active Member Role Status Zach Shanecassi DO Primary Care Provide r, Attending Provider Active Start: September 05, 2024 Team Status: Inactive Member Role Status Zach Aguilar Dontrell DO Primary Care Provider Active S tart: September 08, 2024 End: September 08, 2024Heidi Jacky , MATERIAL PLANNER ACNP-BCAttending ProviderActiveStart: September 08, 2024 End: September 08, 2024 Team Status: Active Member Role Status Zach Jeff Jon DO Primary Care Provide r, Attending Provider Active Start: June 26, 2024 Team Status: Inactive Member Role Status Zach Jeff Shanecassi DO Primary Care Provide r, Attending Provider Active Start: April 11, 2024 End: April 11, 2024 Team Status: Inactive Member Role Status Zach Shanecassi DO Primary Care Provider Active S tart: June 03, 2024 End: June 03, 2024Melly Newton ProviderActiveStart: June 03, 2024 End: June 03, 2024 Team Status: Inactive Member Role Status Zach Shanecassi DO Primary Care Provide r, Attending Provider Active Start: June 13, 2024 End: June 13, 2024 Team Status: Active Member Role Status Zach Jon DO Primary Care Provide r, Attending Provider Active Start: March 20, 2024 Team Status: Inactive Member Role Status Zach Jon DO Primary Care Provider Active S tart: March 26, 2024 End: March 26, 2024Hefredo Jacky , MATERIAL PLANNER ACNP-BCAttending ProviderActiveStart: March 26, 2024 End: March 26, 2024 Team Status: Inactive Member Role Status Zach Jon DO Primary Care Provide r, Referring Provider Active Start: December 05, 2023 End: December 05, 2023Sherif S Stephanie , MDAttending ProviderActiveStart: December 05, 2023 End: December 05, 2023 Team Status: Inactive Member Role Status Dates Jeff Jon DO Primary Care Provider Active S tart: December 05, 2023 End: December 05, 2023Sherif S Stephanie , MDAttending ProviderActiveStart: December 05, 2023 End: December 05, 2023 Team Status: Inactive Member Role Status Dates Jeff Jon DO Primary Care Provider Active S tart: December 19, 2023 End: December 19, 2023Sherif S Stephanie , MDAttending ProviderActiveStart: December 19, 2023 End: December 19, 2023 Team Status: Inactive Member Role Status Dates Jeff Jon DO Primary Care Provider Active S tart: December 27, 2023 End: December 27, 2023Sherif S Stephanie , MDAttending ProviderActiveStart: December 27, 2023 End: December 27, 2023 Team Status: Active Member Role Status Zach Jon DO Primary Care Provider Active S tart: December 27, 2023 Logan S Stephanie , MDAttending ProviderActiveStart: December 27, 2023 Team Status: Inactive Member Role Status Zach Jon DO Primary Care Provider Active S tart: January 14, 2024 End: January 14, 2024Sherif S Stephanie , MDAttending ProviderActiveStart: January 14, 2024 End: January 14, 2024 Team Status: Inactive Member Role Status Zach Jon DO Primary Care Provider Active S tart: February 05, 2024 End: February 05, 2024Sherif S Stephanie , MDAttending ProviderActiveStart: February 05, 2024 End: February 05, 2024 [...] Start: September 26, 2023 End: September 26, 2023Team MemberRelationshipSpecialtyStart DateEnd Date Jeff Jon, DO [address] [place] [address] [facility]08/01/18Team MemberRelationshipSpecialtyStart DateEnd Date Jeff Jon, DO [address] [place] [address] [facility]08/01/18Team MemberRelationshipSpecialtyStart DateEnd Date Jeff Jon, DO [address] [place] [address] [facility]08/01/18Te MemberRelationshipSpecialtyStart DateEnd Date Jeff Jon, DO [address] [place] [address] [facility]08/01/18Team MemberRelationshipSpecialtyStart DateEnd Date Jeff Jon, DO [address] [place] [address] [facility]08/01/18 Team Status: Active Member Role Status Dates [...] Provider Active S tart: February 05, 2024 Melly Newton ProviderActiveStart: February 05, 2024 Team Status: Inactive Member Role Status Dates Jeff Jon DO Primary Care Provider Active S tart: February 12, 2024 End: February 12, 2024Melly Newton ProviderActiveStart: February 12, 2024 End: February 12, 2024 Team Status: Inactive Member Role Status Dates Jeff Jon DO Primary Care Provide r, Attending Provider Active Start: October 24, 2024 End: October 24, 2024 Team Status: Inactive Member Role Status Zach Jon DO Primary Care Provider Active S tart: September 01, 2024 End: September 01, 2024Dakorin Jon DOAttryan ProviderActiveStart: September 01, 2024 End: September 01, 2024 Team Status: Active Member Role Status Zach Jon DO Primary Care Provider Active S tart: September 05, 2024 Misty Quijano ProviderActiveStart: September 05, 2024 Team Status: Inactive Member Role Status Zach Jon DO Primary Care Provider Active S tart: October 24, 2024 End: October 24, 2024DaMisty Butcher ProviderActiveStart: October 24, 2024 End: October 24, 2024 Team Status: Active Member Role Status Zach Jon DO Primary Care Provider Active S tart: November 20, 2024 Misty Quijano ProviderActiveStart: November 20, 2024 Team Status: Inactive Member Role Status Zach Jon DO Primary Care Provider Active S tart: March 02, 2025 End: March 02, 2025DaMisty Butcher ProviderActiveStart: March 02, 2025 End: March 02, 2025 Goals (unrecognized section and content) Goals may [...] BE BASED ON THE PRIMARY CLINICAL RECORDS. [facility]. provides no warranty or guarantee of the accuracy or completeness of information in this document.
--- NOTE | 2025-03-17 12:02 | XR_ITS ---
[address] [address] Patient Name: CANELO SINGH MRN: [id number] date: 1965 Sex: F Assigned Patient Location: [facility] Current Patient Location: [facility] Accession/Order Number: [id number] Exam Date: 03/17/2025 11:55 Report Date: 03/17/2025 12:40 At the request of: JEFF JON Procedure: XR chest 2V PA AND LATERAL CHEST: CLINICAL HISTORY: Persistent cough for the past 10 days without improvement with antibiotics COMPARISON: 08/06/2024 There is no focal parenchymal consolidation, effusion or pneumothorax. The cardiac, hilar and mediastinal silhouettes are within normal limits. There is no vascular congestion. The visualized bony thorax is intact. There is dextroscoliotic curvature and endplate spurring. XR/XR chest 2V IMPRESSION: NO ACUTE CARDIOPULMONARY ABNORMALITY. Impression dictated by: Demetrice Armando M.D. 03/17/2025 12:40 PM Dictation Location: [place] [address] Electronically authenticated by: [id number] Y Date: 03/17/2025 12:40
== END 2025-03-17 11:31 | disposition home or self-care (01) ==
LOC: RAD 11:34
PROVIDERS: PCP Family Medicine; Visit Provider Family Medicine
DX: R05.1 Acute cough (principal)
CPT/HCPCS: 71046

== ENCOUNTER 2025-03-24 17:23 | Inpatient (IN) | payer OTHER, SELFPAY ==
--- OUTSIDE RECORDS SUMMARY | 2025-03-19 06:34 | XMS_ITS | Continuity of Care Document ---
Author Organization [facility] Address [address] [place] [address] Phone Care Team Providers Care Campaign Advisor Name Role Phone Joe Barksdale DO Primary Care Provider Ambrose Espino MD Attending Provider Joe Barksdale DO Attending Provider Care Teams Patient Care Team Team Status: Active Member Role/Relationship Status Dates Joe Barksdale DO Primary Care Provider Active Visit Care Team Team Status: Active Member Role/Relationship Status Dates Joe Barksdale DO Primary Care Provider Active S tart: January 06, 2025 Melly Hernandez ProviderActiveStart: January 06, 2025 Visit Care Team Team Status: Active Member Role/Relationship Status Dates Joe Barksdale DO Primary Care Provider Active S tart: January 27, 2025 Melly Hernandez ProviderActiveStart: January 27, 2025 Visit Care Team Team Status: Inactive Member Role/Relationship Status Dates Joe Barksdale DO Primary Care Provider Active S tart: February 24, 2025 End: February 24, 2025Dakorin Barksdale DOAttryan ProviderActiveStart: February 24, 2025 End: February 24, 2025 Visit Care Team Team Status: Inactive Member Role/Relationship Status Dates Joe Barksdale DO Primary Care Provider Active S tart: March 02, 2025 End: March 02, 2025DaMisty Butcher ProviderActiveStart: March 02, 2025 End: March 02, 2025 Patient Care Team Team Status: Inactive Member Role/Relationship Status Dates Joe Barksdale DO Primary Care Provider Active S tart: March 19, 2025 End: March 19, 2025DaMisty Butcher ProviderActiveStart: March 19, 2025 End: March 19, 2025 Chief Complaint and Reason for Visit Chief Complaint Admit Date blood sugars/discuss meds February 24, 025 11:04am review labs March 02, 2025 1 1:46am review chest xray March 19, 2025 1 1:05am Reason for Visit Admit Date CHF (congestive heart failure) February 242024 11:04am [...] Vitamin D deficiency March 02, 2025 11:46am Acute cough March 19, 2025 1 1:05am COPD (chronic obstructive pu lmonary disease) with emphysema March 19, 2025 11:05am Allergies, Adverse Reactions, Alerts Allergen Type Severity Reaction Last Updated Verified Status clarithromycin Allergy Unknown diarrhea March 192024 11:09am Yes Active levofloxacin Allergy Unknown Abdominal Pain, itches/pain March 19, 2025 11:09am Yes Active gatifloxacin Allergy Unknown Abdominal Pain March 19, 2025 11:09am Yes Active Social History Smoking Status Status Start Date End Date Date of Observa tion Never smoked tobacco (finding) August 01, 2024 9:50am Observation Status Observation Response Date of Response Legal Sex Female (finding) Sex Assigned At BirthFemaleApril 1965 Family History Relationship Condition Age at Onset Recorded Date/T erlin brother Hypertension Unknown fatherHistory of strokeUnknownHypertensionUnknownHeart diseaseUnknownDiabetes mellitusUnknownDeceasedUnknownRenal failureUnknowngrandparentDiabetes mellitus UnknownHeart diseaseUnknownHypertensionUnknownDeceasedUnknownmotherDeceased UnknownPulmonary embolismUnknown Problems Active Problems Problem Diagnosis/Recorded Date Onset Date Status C omments UTI (urinary tract infection) September 14, 2017 10:16pm Unk nown Active Acute coughJune 2024 10:22amUnknownActiveOther usp (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April 2023 11:16amUnknownActiveLumbar radiculopathyJuly 2023 2:45pmUnknownActiveSacroiliitisJuly 2023 2:09pmUnknownActiveHepatitisApril 2017 10:16pmUnknownActiveLumbar stenosisJuly 2023 2:10pmUnknown ActiveElevated blood pressure readingApril 2023 11:15amUnknownActiveFatigue August 28, 2023 11:17amUnknownActivePalpitationApril 2023 11:16amUnknown ActiveDiabetesApril 2023 11:15amUnknownActiveChronic painMay 2023 2:39pmUnknownActiveAcute sinusitisJune 2024 10:22amUnknownActive PolyarthralgiaApril 2023 11:16amUnknownActiveCHF (congestive heart failure) February 24, 2025 11:12amUnknownActivePulsatile tinnitusApril 2023 2:41pm UnknownActiveAnxietyApril 2023 11:16amUnknownActiveDiarrheaJune 2023 3:03pmUnknownActiveBelchingFebruary 2024 11:28amUnknownActiveSeasonal allergiesApril 2023 11:17amUnknownActiveHyperlipidemiaApril 2023 11:16amUnknownActiveHypothyroidismApril 2023 11:15amUnknownActive Lumbosacral spondylosisAugust 2023 4:03pmUnknownActiveOther chronic pain August 28, 2023 10:48amUnknownActiveCOPD (chronic obstructive pulmonary disease) with emphysemaJuly 2024 10:31amUnknownActiveWheezingApril 2024 3:14pmUnknownActiveAbnormal CT scan, chestApril 2024 3:21pmUnknownActiveCT chest 08/05[facility]met[facility] sensorineural hearing loss September 26, 2023 2:40pmUnknownActiveShoulder pain, leftJanuary 2024 1:25pm UnknownActiveSinus drainageOctober 2024 12:24pmUnknownActiveHip painJuly 2023 2:10pmUnknownActiveCervical painJanuary 2024 1:34pmUnknown ActiveGERD (gastroesophageal reflux disease)August 28, 2023 10:48amUnknownActive GERD (gastroesophageal reflux disease)July 16, 2024 11:45amUnknownActive Abdominal painFebruary 2024 11:25amUnknownActiveHypertensionApril 2024 3:15pmUnknownActiveNauseaFebruary 2024 11:28amUnknownActiveTinnitus September 26, 2023 2:39pmUnknownActiveright sided tinnitusVitamin D deficiencyApril 2023 11:16amUnknownActiveVomitingJune 2023 3:09pmUnknownActiveAsthma August 28, 2023 11:15amUnknownActive Medications Medication Status Dose Units Route Directions Qty Days Refills S tart Date Stop Date End Date Reason(s) Instructions Adherence Levothyroxine 200 mcg tablet Discontinued 200 MCG PO Daily 90 0April 2023 12:00amDecember 2023 9:14amtake first thing in the morning on an empty stomach, do not eat or drink for 30-45 min after taking Fluticasone Propion-Salmeterol (Advair Diskus) 250-50 mcg/dose blister with fsmsglFjzyqyaiycoz3RYGEBCTHDOUYXZ70Z0204Hdqp 10th, 2024 1:18pmJuly 2024 8:30amCyclobenzaprine 10 mg gyfsdfCwtuyaqmbcwu58NEBHTsevw at xqpcvqg891Lfwt2023 1:11pmJun2023 3:01pmTAKE 1 TABLET AT BEDTIME; Refills: 0; Provider: Shamir Diaz CCyclobenzaprine 10 mg mesxkqIyytabqqykuo31QJULPksyc at bcdaplf930Gmyi2023 3:00pmJuly 2023 10:32amTAKE 1 TABLET AT BEDTIME; Refills: 0; Provider: Shamir Diaz CCyclobenzaprine 10 mg snhiwzBzeyhjmvucai63WA PODaily at wljdmxq249Ilfm 2023 10:30amAugu2023 11:30amTAKE 1 TABLET AT BEDTIMECyclobenzaprine 10 mg ripbllKfbcukxyooiu86GMDXOtibe at bedtime 900August 2023 11:29amDecember 2023 9:14amTAKE 1 TABLET AT BEDTIME Amoxicillin-Pot Clavulanate 875-125 mg ywzwtmArsrvmbukxpi8QBVCSRyuuj pdruu30560 January 08, 2024 12:00amNovember 2023 12:37pmwith foodMeloxicam 15 mg tabletDiscontinued0.ROUTE.PJGUTRP963Lnwoxs 2023 10:16amJanuary 2024 1:23pmTAKE 1 TABLET DAILYMetformin 500 mg tablet extended release 24 hr Azzfsaxffltr571DKRM.COMPLEXAugust 2023 10:36amAugust 2023 10:41eu681 mg orally take 2 (500 mg) tabs twice a day with meals;Metformin 500 mg tablet extended release 24 hrDiscontinued0.ROUTE.RBIATTP1030Pwxtfq 2023 10:41am April 22, 2024 9:14amTAKE 2 TABLETS TWICE A DAY WITH MEALSMetformin 500 mg tablet extended release 24 hrDiscontinued0.ROUTE.FGPQKRA4114Xkojeihr 3rd, 2024 9:13amJanuary 2024 1:23pmTAKE 2 TABLETS TWICE A DAY WITH MEALSLosartan 50 mg kcanqoLjzlkmsuorio01SHCDLchlw745Lgjlurpq 3rd, 2024 9:14amApril 2024 10:07amLevothyroxine 200 mcg pylccdNsbxpncgqlyx229NYFLBRlpdx278Ldgrbeli 3rd, 2024 9:14amMarch 2024 10:58amtake first thing in the morning on an empty stomach, do not eat or drink for 30-45 min after takingCyclobenzaprine 10 mg fsldtpHsabgdifzprp13HCBDAfbif at whthzbf146Wzagvzfa2023 9:14amMarch 2024 11:47amTAKE 1 TABLET AT BEDTIMEMontelukast (Singulair) 10 mg grgqvvScegpr07 MGPODaily at gyhtkfc778Tdxtlnhb 3rd, 2024 9:15amComplies with drug therapy Esomeprazole Magnesium (Nexium) 40 mg capsule,delayed release(DR/EC)Kxyaqa54MQZA Ezoox857Cybdauoq2023 9:16amComplies with drug therapyPrednisone 20 mg zcytzjJntihybpbuuz4VDuctkp589Lqaxayud 2023 1:00amJanuary 2024 1:16pm 3 tablets by mouth daily for 3 days, then 2 tablets for 3 days, then 1 tablet for 3 days, with foodLevothyroxine 100 mcg agcoosRywetbxbrgwj235UULUELnltv3151 August 18, 2024 12:00amJuly 2024 12:21pmtake first thing in the morning on an empty stomach, do not eat or drink for 30-45 min after takingLevothyroxine (Synthroid) 25 mcg wlnbtyFmlqufgyfive57OELNDFskqs767Obcna 2024 12:00am September 08, 2024 10:58amtake first thing in the morning on an empty stomach, do not eat or drink anything for 30-45 min after taking. Take in addition to 200 MCG (2- 100 MCG tablets) daily for a total of 225 MCG dailyCyclobenzaprine 10 mg gpylvfWkjzibxpalmj54YVJXHrxlx at gtvcpbw013Bgtel 2024 11:46amJuly 2024 9:15amTAKE 1 TABLET AT BEDTIMECetirizine (Zyrtec) 10 mg pqwfikQdenen32XUYP Skeiv701Tywvk 2024 11:46amComplies with drug therapyPrednisone 20 mg iuyrmfPgjnwucftqmi2HU.with food or kodl1105Fpy 2024 10:19amJune 2024 10:08amtake 3 tablets a day x3 days, 2 tabs a day x3 days and then 1 tab a day x3 days orally WITH FOOD ORMILK;Cyclobenzaprine 10 mg jfcdkkEsawjeuskbcp97GMCG Daily at wlwcvkq62Rjxc 2024 9:14amOctober 2024 11:44amTAKE 1 TABLET AT BEDTIMEFluticasone Propion-Salmeterol (Advair Diskus) 250-50 mcg/dose blister with frwuokSwqvcu6VWESRRZLIVVOCV85M3457Mhmt 2024 8:30amComplies with drug therapyMeloxicam 15 mg tabletDiscontinued0.ROUTE.SQSESOW117Weemmzqza 2024 8:53amOctober 2024 11:19amTAKE 1 TABLET BY MOUTH DAILYAmoxicillin-Pot Clavulanate 875-125 mg immefuCsoyclfzbjom5ELQUVQjhmr gnwkg01238Mpuyhil 2024 12:00amOctober 2024 11:10amwith foodCyclobenzaprine 10 mg Tablet Mbyucjoslitm32BOENNmnvb times daily as needed for Muscle SpasmApril 2017 12:00amApril 2017 1:16pmLevothyroxine (Synthroid) 175 mcg Tablet Hcwwqiwzvrtv788TUDFDAhyepHjgiy 2017 12:00amApril 2023 11:40am Fluticasone Propion-Salmeterol (Advair Diskus) 250-50 mcg/dose Blister With HfrfglCxiuxlpifzxu5SAOXMMVEQAFWLT40TZcliz 2017 12:00amJune 2023 1:20pmCetirizine (Zyrtec) 10 mg EovmczYjicsjvvvozf99IIIUCbynsKinsa 2017 12:00amMarch 2024 11:47amEsomeprazole Magnesium (Nexium) 40 mg Capsule,Delayed Release(Dr/Ec)Zwhkdfzysscj86MLXHOfjplVifxd 2017 12:00am April 22, 2024 9:16amMometasone (Nasonex) 50 mcg/actuation [place],Non-Aerosol Xtkvucwyksrq5DRVPWOIWUPGZROKOsykhMwarl 2017 12:00amFebruary 2024 11:36amMontelukast (Singulair) 10 mg EjobdgOftksxkjfpyv63OXMWAilcg at bedtime September 14, 2017 12:00amDecember 2023 9:15amEstradiol (Vivelle-Dot) 0.0375 mg/24 hr Patch TfbhdslbtjTdwsnwznlkdy6MMLBFOMWFAKJGKTMttxDhjtu 2017 12:00amApril 2023 11:12amMetformin 500 mg Tablet Extended Release 24 Hr Wcygqistighz962BJKISfkcz 48 hoursApril 2017 12:00amJune 2023 2:48pm Mometasone (Elocon) 0.1 % ScflbOoptkp0LRYVDFPKNQZQFNipnu as needed for RashApril 2017 12:00amComplies with drug tnhcbthVvufifqi-Zgj-Czizflj Gluconate (Centrum) 9 mg iron/15 mL XjpmzeNplrodkswlin7REIWXAerrnPnyrr 2017 12:00am August 28, 2023 11:13amLisinopril 10 mg byzbxfVaejqyszeakc60IYAUAmwxr638Aeuyc 2017 12:00amApril 2023 11:13amMetformin 500 mg tablet extended release 24 uvKgiuvdddovoq880TWFJFbbbcVtma 2023 2:48pmAugust 2023 10:37amMometasone (Nasonex) 50 mcg/actuation spray,non-dkapkitXvckzd6JUXYL INTRANASALDaily as needed for allergic symptomsFebruary 2024 11:35am Complies with drug therapyLosartan 50 mg bvvyycFnzjhincdacc42UAZGGnnltWmbo 2023 12:00amDecember 2023 9:14amAlbuterol Sulfate (Proair Hfa) 90 mcg/actuation HFA aerosol telnujmSxdmbtziduxd4DZTLTRHMCLKTUPkggq 6 hours as needed for shortness of breath or wheezingMarch 26, 2024 1:02pmNovember 2023 1:04pmAlbuterol Sulfate 90 mcg/actuation HFA aerosol inhalerDiscontinued2 INHINHALATIONEvery 6 hours as needed for shortness of breath or wheezing8.51 March 26, 2024 1:03pmOctober 2024 11:31amEmpagliflozin (Jardiance) 10 mg qqbiiuKhngjoqkyfxb12SAUNLsqvw ofsipet243Luuh 2024 12:00amOctober 2024 11:08amLosartan 50 mg ozxopaPzqeccoewujz55DEFGGomao524Uybc 2024 12:14pmOctober 2024 11:08amLevothyroxine 200 mcg jhzqxwUkqvejgcycle777RQPLW Qlgwh57708Saiz 2024 12:00amOctober 2024 12:14pmtake first thing in the morning on an empty stomach, do not eat or drink for 45 min after taking Levothyroxine 175 mcg lmpcudMonfzr466DSFCRLhhsu408Qmdcovp 2024 12:00amtake first thing in the morning on an empty stomach, do not eat or drink for 45 minutes after takingComplies with drug therapyTramadol 50 mg vhtlazKotusp99ECGN Twice daily as needed for ihym84906Jkpokes 2024 12:22pmChronic pain Other chronic painComplies with drug therapyAzithromycin (Zithromax) 500 mg fgfgceJdjvbu092CGLZNdcyg691Btkmvnf 2024 12:00amComplies with drug therapy Albuterol Sulfate 2.5 mg /3 mL (0.083 %) solution for nebulizationDiscontinued 2.5MGINHALATIONFour times daily as needed for shortness of breath or wheezing March 19, 2025 11:30amOctober 2024 11:31amAlbuterol Sulfate 90 mcg/actuation HFA aerosol alvtlvrMwghvb8HAGUPUHFSLLIREoaup 6 hours as needed for shortness of breath or wheezing8.51October 2024 11:31amComplies with drug therapyAlbuterol Sulfate 2.5 mg /3 mL (0.083 %) solution for nebulizationActive 2.5MGINHALATIONFour times daily as needed for shortness of breath or ushsodfq575 March 19, 2025 11:31amComplies with drug therapyMeloxicam 15 mg tablet Goopyrqqtanz07SDQLHafyhUkkmh 2023 12:00amAugust 2023 10:17amTAKE 1 TABLET DAILY; Refills: 0; Provider: Shamir Diaz CCyclobenzaprine 10 mg tablet Wmaeujpaolyc43VLFHYhabg at bedtimeApril 2023 12:00amJune 2023 1:12pm TAKE 1 TABLET AT BEDTIME; Refills: 0; Provider: Shamir Diaz CGlimepiride 1 mg plktriKbmcyvbgnxld2LOICQEixqbDqntl 9th, 2024 12:00amApril 2023 10:09am FreeTextSi tablet with breakfast or the first main meal of the day Orally Once a day; Note: Source Status: Start; Refills: 1; Qty: 90 Tablet; Provider: Shamir Diaz ( )Losartan 50 mg wdhjwtLchwtcgfjqus05NFDUTrddrOanor 2023 12:00amApril 2023 11:13amFreeTextSi tablet Orally Once a day; Note: Source Status: Taking; Refills: 3; Qty: 90 Tablet; Provider: Kg Reynolds Cholecalciferol (Vitamin D3) 50 mcg (2,000 unit) dmysniDyqkvwirwxmz7SZGWUSamjh Ashley 2023 12:00amApril 2023 10:48amFreeTextSi tablet Orally Once a day; Note: Source Status: Taking; Provider: Shamir Diaz CAlbuterol Sulfate 2.5 mg /3 mL (0.083 %) solution for nebulizationDiscontinued2.5MGINHALATIONEvery 6 hours as needed for shortness of breath or wheezingApr2023 12:00am March 19, 2025 11:31am3 ml as needed Inhalation every 6 hrs; Note: Source Status: Continueprn; Provider: Jacky HeidiAlbuterol Sulfate (Proair Hfa) 90 mcg/actuation HFA aerosol inhalerDiscontinuedINHALATIONApr2023 12:00am March 26, 2024 1:03pmFreeTextSi inhalations Inhalation q4 hrs prn; Note: Source Status: Continueprn; Provider: Shamir Diaz CGlimepiride 1 mg tablet Rhiorkbtiuim8PGVRIrjfuOrtmj 2023 10:09amApril 2023 11:12am1 tablet with breakfast or the first main meal of the day Orally Once a day; Note: Source Status: Start; Refills: 1; Qty: 90 Tablet; Provider: Shamir Diaz ( )Cholecalciferol (Vitamin D3) 50 mcg (2,000 unit) fxbozhYrvkgg1289PUFO PODailyApril 2023 10:48amFreeTextSi tablet Orally Once a day; Note: Source Status: Taking; Provider: Shamir Diaz CComplies with drug therapy Clotrimazole-Betamethasone 1-0.05 % vzjyqQrqkbkijxvhn0CWKKZIEQXICNYObios daily August 28, 2023 12:00amFebruary 2024 11:36amFreeTextSi application Externally Twice a day; Note: Source Status: Takingprn; Refills: 3; Qty:135 gm; Provider: Shamir Diaz CLosartan 50 mg sbdxtoClhfcfbrhydw05MKJQQvepqFlhvc 2023 12:00amMa2023 2:52pmLevothyroxine 200 mcg jxwdrmYeogcprpxnse732WILWJ DailyApril 2023 12:00amApril 2023 11:42amtake first thing in the morning on an empty stomach, do not eat or drink anything for 30-45 min after takingLevothyroxine 200 mcg qtmdxuIfntokchuwbg577CUDGTKrkew328Bhxdc 2023 11:41amApril 2023 11:43amtake first thing in the morning on an empty stomach, do not eat or drink anything for 30-45 min after takingLevothyroxine (Synthroid) 200 mcg vlbgdsKkyhxflevari296TNMGFMtcraTstoq 2023 12:00amApril 2023 11:48amtake on an empty stomach first thing in the morning do not eat or drink for 30-45 min after takingLevothyroxine (Synthroid) 200 mcg tablet Pzrhyylotdst428UQYBLRhooy368Zixed 2023 11:47amApril 2023 12:49pmtake on an empty stomach first thing in the morning do not eat or drink for 30-45 min after takingClotrimazole-Betamethasone 1-0.05 % dfpngNdkael9ZAGCLGVUWMIVWZssbq daily as needed for as directedFebruary 2024 11:35amFreeTextSi application Externally Twice a day; Note: Source Status: Takingprn; Refills: 3; Qty:135 gm; Provider: Shamir Diaz CComplies with drug therapyTriamterene- Hydrochlorothiazid 37.5-25 mg zmcpgfmVgjbobltpypx3UWSQCKlemx irjfvry917Izs 2023 12:00amNovember 2023 1:05pmMeloxicam 15 mg kurcvfEllnecmqskzf46XYSK DailyJanuary 2024 1:22pmSeptember 2024 8:54amMetformin 500 mg tablet extended release 24 uzDgyfrqbiobxq0545IITT.COMPLEXJanuary 2024 1:22pm February 24, 2025 11:09am1,000 mg orally BID as normal;Prednisone 20 mg tablet Sizhjfyzkjyf3XA.with food or dmpn9310Kusrixp 2024 1:00amFebruary 2024 11:36amtake 3 tablets a day x3 days, 2 tabs a day x3 days and then 1 tab a day x3 days orally WITH FOOD ORMILK;Diltiazem Hcl 240 mg capsule,extended release 24hrDiscontinuedMGPOApril 2024 12:00amApril 2024 10:07am Atorvastatin 20 mg mkjjcsJtdirkwcvygn12XRUFMphatFrjjj 2024 12:00amJuly 2024 11:42amAspirin 81 mg tablet,wyjcyqplRfexnjvajsqf0GWJEHKjmarVqkvp 2024 12:00amJuly 2024 11:42amPrednisone 20 mg rssrnjCwfzautguczy5RH .with food or tbxm0065Gtxtu 2024 12:00amMay 2024 10:19amtake 3 tablets a day x3 days, 2 tabs a day x3 days and then 1 tab a day x3 days orally WITH FOOD ORMILK;Diltiazem Hcl 240 mg capsule,extended release 24hrDiscontinued 240MGPODailyApril 2024 10:07amJuly 2024 11:43amPrednisone 20 mg nskpkyJtfisoqkkdbv5YA.QDXWOWP83884Ffqa 6th, 2025 12:00amJuly 2024 11:44am3 tabs a day x3 days then take 2 tabs a day x3 days then take 1 tab a day x3 then take 1/2 tablet aday x4 days with food or milk orally;Amoxicillin-Pot Clavulanate 875-125 mg elsmmpBcboqivmohss4PWRBGLbysg lkjmo53666Tkof2024 12:00amJuly 2024 11:42amwith foodFurosemide 40 mg muzhkaLkghpg14UNOFNrwhq February 24, 2025 12:00amComplies with drug therapyAtorvastatin 40 mg tablet Keurrf36TLDDZqbktGydkjjb 2024 12:00amComplies with drug therapyDiltiazem Hcl (Cartia Xt) 240 mg capsule,extended release 24hrActiveMGPOOctober 2024 12:00amComplies with drug therapySpironolactone 25 mg buemawXaycit72SSKJ.COMPLEX February 24, 2025 12:00am25 mg orally TAKE 1/2 TABLET BY MOUTH IN THE MORNING; Complies with drug therapyDapagliflozin Propanediol (Farxiga) 10 mg tabletActive 10MGPODailyOctober 2024 12:00amComplies with drug therapyMeloxicam 15 mg nivuqsMougyxydagpa75UBSGAdpjsZfvypza 2024 11:18amOctober 2024 11:32am Tramadol 50 mg qlflweFglawvmlercs44ZFRAFckxj daily as needed for bztt2874Jsldzwf 7th, 2025 12:00amOctober 2024 12:23pmChronic pain Other chronic pain Immunizations Immunization Event Date Not Given Reason Dose Number Scoop Driver Lot Number Reason(s) Given Vaccine Information Statement (VIS) Detail Administration Location COVID-19 mRNA, Comirnat ([employer]) September 02, [id number], Com[facility]y ([employer])September [id number] CtrTetanus, Diphtheria, Pertussis (Tdap) December 16, 2011Tetanus, Diphtheria, Pertussis (Tdap)December 12, 2024Trivalent Influenza VaccineOctober atient Refused Relevant Diagnostic Tests and/or Laboratory Data Laboratory Results Test Collection Date/Time Result Date/Time Result Interpretation Reference Range Result Comment Performing Site Basophils # (Auto) January 06, 2025 12:15pm January 062024 12:15pm 0.1 10 3/uL 0.0-0.1Anion GapMorland 2024 12:15pmAugust 2024 12:15pm9.4Anion Gap January 27, 2025 11:26amSeptember 2024 11:26am14.225-Hydroxy Vitamin D TotalOct2024 1:51pmOctober 2024 1:51pm43.0 ng/mL<20 ng/mL Vit D rnzjwtzsi37-<30 ng/mL Vit D zawnmtypdkmz47-870 ng/mL Vit D sufficient>100 ng/mL Potential ToxicityFree ThyroxineOct2024 1:51pmOctober 2024 1:51pm 2.15 ng/dLAbove high normal0.76-1.46October 2024 1:51pm2.15 ng/dLAbove high normal0.76-1.46Basophils # (Auto)February 24, 2025 1:51pmOctober 2024 1:51pm0.1 10 3/uL0.0-0.1Insulin LevelOct2024 1:51pmOct2024 1:51pm12.7 u[iU]/mL2.6-24.9Performed at: - [facility] [id number] [place], [place] [id number] Director: Giuseppe Newell PhD, Phone: [phone] Estimated Average GlucoseOct2024 1:51pmFebruary 24, 2025 1:90xw223 mg/dLThyroid Stimulating Hormone 3rd GenFebruary 24, 2025 1:51pmOct2024 1:51pm0.282 u[iU]/mLBelow low normal0.358-3.740Free TriiodothyronineFebruary 24, 2025 1:51pmOct2024 1:51pm3.08 pg/mL2.18-3.98Cholesterol/HDL RatioOct2024 1:51pmOct2024 1:51pm1.93.3 - 4.4 LOW RISK4.4 - 7.1 AVERAGE RISK7.1 - 11.0 MODERATE RISK>11.0 HIGH RISKAnion GapOct2024 1:51pmOct2024 1:51pm14.3Basophils (%) (Auto)January 06, 2025 12:15pmAugust 2024 12:15pm1.0 %0.2-2.0BUN/Creatinine RatioAugust 2024 12:15pmAugust 2024 12:15pm28.4BUN/Creatinine RatioSeptember 2024 11:26amSeptember 2024 11:26am20.2Basophils (%) (Auto)February 24, 2025 1:51pmOct2024 1:51pm1.0 %0.2-2.0Hemoglobin W5mAgpvjmb2024 1:51pm February 24, 2025 1:51pm8.4 %Above high normal4.5-6.2ADA RECOMMENDED LIMIT 4.0 - 6.0ADA THERAPEUTIC TARGET < 7.0ACTION SUGGESTED> 7.0Cholesterol LevelOct2024 1:51pmOct2024 1:77mo772 mg/dL<=200Albumin/Globulin Ratio February 24, 2025 1:51pmOctober 2024 1:51pm1.1Eosinophils # (Auto)January 06, 2025 12:15pmAugust 2024 12:15pm0.5 10 3/uL0.0-0.7Blood Urea Nitrogen January 06, 2025 12:15pmAugust 2024 12:15pm19.0 mg/dLAbove high normal 7.0-18.0Blood Urea NitrogenSeptember 2024 11:26amSeptember 2024 11:26am19.0 mg/dLAbove high normal7.0-18.0Eosinophils # (Auto)February 24, 2025 1:51pmOctober 2024 1:51pm0.4 10 3/uL0.0-0.7HDL CholesterolOct2024 1:51pmOctober 2024 1:51pm67 mg/dLAbove high bakxiz79-89> or =60 mg/dl - LOW CARDIOVASCULAR RISK<40 mg/dl - HIGH CARDIOVASCULAR RISKAlbuminOctober 2024 1:51pmOctober 2024 1:51pm4.1 g/dL3.4-5.0Eosinophils (%) (Auto)January 06, 2025 12:15pmAugust 2024 12:15pm6.1 %0.9-7.0Calcium LevelAugust 2024 12:15pmAugust 2024 12:15pm9.2 mg/dL8.5-10.1Calcium LevelSeptember 2024 11:26amSeptember 2024 11:26am9.6 mg/dL8.5-10.1Eosinophils (%) (Auto)February 24, 2025 1:51pmOctober 2024 1:51pm4.8 %0.9-7.0LDL Cholesterol, CalculatedOctober 2024 1:51pmOctober 2024 1:51pm53.0 mg/dL<100 mg/dl BDORIBV739-366 mg/dl NEAR OR ABOVE XGCITZW235-715 mg/dl BORDERLINE IMFX193-569 mg/dl HIGH>190 mg/dl VERY HIGHAlkaline PhosphataseOctober 2024 1:51pmOctober 2024 1:78bh799 U/F60-037NgqzfhxgqySdrpnk 2024 12:15pmAugust 2024 12:15pm40.9 %36.0-48.0Chloride LevelAugust 2024 12:15pmAugust 2024 12:90or068 mmol/K30-143Nebipprb LevelSeptember 2024 11:26amSeptember 2024 11:95pn874 mmol/C16-541HnbkxkeanzAjvtfmx 2024 1:51pmOctober 2024 1:51pm44.8 %36.0-48.0Triglycerides Level February 24, 2025 1:51pmOctober 2024 1:51pm54 mg/dL<=150Alanine Aminotransferase (ALT/SGPT)February 24, 2025 1:51pmOctober 2024 1:51pm32 U/F34-45NxpicjajckRqldxn 2024 12:15pmAugust 2024 12:15pm13.7 g/dL 12.0-16.0Carbon Dioxide LevelAugust 2024 12:15pmAugust 2024 12:15pm 30.0 mmol/L21.0-32.0Carbon Dioxide LevelSeptember 2024 11:26amSeptember 2024 11:26am27.3 mmol/L21.0-32.0HemoglobinOctober 2024 1:51pmOctober 2024 1:51pm15.1 g/dL12.0-16.0VLDL CholesterolOct2024 1:51pm February 24, 2025 1:51pm10.8 mg/dLAspartate Amino Transf (AST/SGOT)February 24, 2025 1:51pmOctober 2024 1:51pm22 U/[id number] Granulocyte # (Auto) January 06, 2025 12:15pmAugust 2024 12:15pm0.02 10 3/uL0.00-0.03 CreatinineAugust 2024 12:15pmAugust 2024 12:15pm0.67 mg/dL0.55-1.02 CreatinineSeptember 2024 11:26amSeptember 2024 11:26am0.94 mg/dL 0.55-1.02Immature Granulocyte # (Auto)February 24, 2025 1:51pmOctober 2024 1:51pm0.03 10 3/uL0.00-0.03BUN/Creatinine RatioOctober 2024 1:51pmOctober 2024 1:51pm19.8Immature Granulocyte % (Auto)January 06, 2025 12:15pmAugust 2024 12:15pm0.3 %0.0-0.5Estimated GFR ()January 06, 2025 12:15pmAugust 2024 12:15pm>60>=60 mL/min/1.73m 2Estimated GFR ()January 27, 2025 11:amSeptember 2024 11:26am>60>=60 mL/min/1.73m 2Immature Granulocyte % (Auto)February 24, 2025 1:51pmOctober 2024 1:51pm0.4 %0.0-0.5Blood Urea NitrogenOct2024 1:51pmOctober 2024 1:51pm19.0 mg/dLAbove high normal7.0-18.0Lymphocytes # (Auto)January 06, 2025 12:15pmAugust 2024 12:15pm2.3 10 3/uL1.2-3.8Estimated GFR (Non- AmericanAugus2024 12:15pmAugust 2024 12:15pm>60>=60 mL/min/1.73m 2Estimated GFR (Non- AmericanSept2024 11:26am January 27, 2025 11:26am>60>=60 mL/min/1.73m 2Lymphocytes # (Auto)February 24, 2025 1:51pmOctober 2024 1:51pm2.3 10 3/uL1.2-3.8Calcium LevelOct2024 1:51pmOctober 2024 1:51pm10.0 mg/dL8.5-10.1Lymphocytes (%) (Auto) January 06, 2025 12:15pmAugust 2024 12:15pm28.9 %20.5-60.0Glucose Level January 06, 2025 12:15pmAugust 2024 12:84ew904 mg/dLAbove high normal 74-106Glucose LevelSeptember 2024 11:26amSeptember 2024 11:74ra046 mg/dLAbove high pyexxq43-963Xvmedokxfxj (%) (Auto)February 24, 2025 1:51pm February 24, 2025 1:51pm28.9 %20.5-60.0Chloride LevelOctober 2024 1:51pm February 24, 2025 1:76st949 mmol/X75-745Ayeq Corpuscular HemoglobinAugust 2024 12:15pmAugust 2024 12:15pm30.9 pg26.7-34.0Potassium LevelAugust 2024 12:15pmAugust 2024 12:15pm4.4 mmol/L3.5-5.1Potassium LevelSeptember 2024 11:26amSeptember 2024 11:26am4.5 mmol/L3.5-5.1Mean Corpuscular HemoglobinOctober 2024 1:51pmOctober 2024 1:51pm31.0 pg26.7-34.0Carbon Dioxide LevelOctober 2024 1:51pmOctober 2024 1:51pm30.0 mmol/L 21.0-32.0Mean Corpuscular Hemoglobin ConcentAugust 2024 12:15pmAugust 2024 12:15pm33.5 g/dL29.9-35.2Sodium LevelAugust 2024 12:15pmAugust 2024 12:33tj861 mmol/Q817-629Jdtwfp LevelSept2024 11:26am January 27, 2025 11:65ek838 mmol/Q283-845Giav Corpuscular Hemoglobin Concent February 24, 2025 1:51pmOctober 2024 1:51pm33.7 g/dL29.9-35.2Creatinine February 24, 2025 1:51pmOctober 2024 1:51pm0.96 mg/dL0.55-1.02Mean Corpuscular VolumeAugust 2024 12:15pmAugust 2024 12:15pm92.3 fL 81.0-99.0Mean Corpuscular VolumeOct2024 1:51pmOctober 2024 1:51pm 92.0 fL81.0-99.0Estimated GFR ()February 24, 2025 1:51pmOctober 2024 1:51pm>60>=60 mL/min/1.73m 2Monocytes # (Auto)January 06, 2025 12:15pmAugust 2024 12:15pm0.5 10 3/uL0.3-0.8Monocytes # (Auto)February 24, 2025 1:51pmOctober 2024 1:51pm0.5 10 3/uL0.3-0.8Estimated GFR (Non- AmericanOct2024 1:51pmOctober 2024 1:51pm60>=60 mL/min/1.73m 2 Monocytes (%) (Auto)January 06, 2025 12:15pmAugust 2024 12:15pm6.4 % 1.7-12.0Monocytes (%) (Auto)February 24, 2025 1:51pmOctober 2024 1:51pm6.6 %1.7-12.0GlobulinOct2024 1:51pmOctober 2024 1:51pm3.8 g/dLMean Platelet VolumeAugust 2024 12:15pmAugust 2024 12:15pm10.5 fL9.5-13.5 Mean Platelet VolumeOct2024 1:51pmOctober 2024 1:51pm9.9 fL 9.5-13.5Glucose LevelOct2024 1:51pmOct2024 1:33fa845 mg/dL Above high icjgoh17-211Xxydupsyemg # (Auto)January 06, 2025 12:15pmAugust 2024 12:15pm4.5 10 3/uL1.4-6.5Neutrophils # (Auto)February 24, 2025 1:51pm February 24, 2025 1:51pm4.7 10 3/uL1.4-6.5Potassium LevelOct2024 1:51pmOctober 2024 1:51pm4.3 mmol/L3.5-5.1Neutrophils (%) (Auto)January 06, 2025 12:15pmAugust 2024 12:15pm57.3 %43.0-75.0Neutrophils (%) (Auto) February 24, 2025 1:51pmOctober 2024 1:51pm58.3 %43.0-75.0Sodium Level February 24, 2025 1:51pmOctober 2024 1:73jk970 mmol/I610-148Nprzwvqa Count January 06, 2025 12:15pmAugust 2024 12:82ms512 10 3/jN009-147Mbotkjnn CountOct2024 1:51pmOctober 2024 1:71nn837 10 3/wY360-739Mhkmy BilirubinOct2024 1:51pmOctober 2024 1:51pm0.7 mg/dL0.2-1.0Red Blood CountAugus2024 12:15pmAugust 2024 12:15pm4.43 10 6/uL 4.20-5.40Red Blood CountOct2024 1:51pmOctober 2024 1:51pm4.87 10 6/uL4.20-5.40Total ProteinOctober 2024 1:51pmOctober 2024 1:51pm7.9 g/dL6.4-8.2Red Cell Distribution WidthAugust 2024 12:15pmAugust 2024 12:15pm12.2 %11.0-15.0Red Cell Distribution WidthOct2024 1:51pm February 24, 2025 1:51pm11.9 %11.0-15.0Corrected White Blood CountAugust 2024 12:15pmAugust 2024 12:15pm7.9 10 3/uL4.0-11.0Corrected White Blood CountOctober 2024 1:51pmOctober 2024 1:51pm8.0 10 3/uL4.0-11.0 Vital Signs Vital Reading Result Reference Range Collection Date/Time Height 65 [in_i] February 24, 2025 10:69mjViztqh449.29 kgOctober 2024 10:48amBody Ajfczmqniqj38.9 [degF]97.6-99.0February 24, 2025 10:48amHeart Rate90 /csv71-853 February 24, 2025 10:48amOxygen saturation by Pulse ukncltob73 %95-100February 24, 2025 10:48amBP Rrxyoyiz618 mm[Hg]100-140February 24, 2025 11:15amBP Otkublcxi77 mm[Hg]60-100February 24, 2025 11:15amBMI (Body Mass Index)43.7 kg/m2 February 24, 2025 10:26rmCabiwm26 [in_i]March 02, 2025 11:95znMgglqh659.29 kgOctober 2024 11:50amBody Umjpchrdmcv45.7 [degF]97.6-99.0October 2024 11:50amHeart Rate85 /nwe54-543Awthxma 13th, 2025 11:50amOxygen saturation by Pulse %95-100Oct2024 11:50amBP Ocuszpvm693 mm[Hg] 100-140March 02, 2025 11:50amBP Jxghbnnun08 mm[Hg]60-100Oct[facility] 2024 11:50amBMI (Body Mass Index)43.7 kg/p2Yamqtdp 2024 11:18bmJeslfe15 [in_i] March 19, 2025 11:52neGruugi138.29 kgOctmarshall county hospital 2024 11:11amBody Ulorrgrqyya95.5 [degF]97.6-99.0Octm[facility] 2024 11:11amHeart Rate79 /xqm97-700 March 19, 2025 11:11amOxygen saturation by Pulse tgobswip34 %95-100Oct[facility] 2024 11:11amBP Lonexyzt070 mm[Hg]100-140Octm[facility] 2024 11:11amBP Twpadpvyn53 mm[Hg]60-100Octm[facility] 2024 11:11amBMI (Body Mass Index)43.7 kg/i8Eymjscv 2024 11:11am Advance Directives Advance Directive Response Recorded Date/ Time Advance Directives No September 14 9:20pm Insurance Providers Guarantor Laura Pathak Address [address] [place] [address]Mnkafqe Info.Home Phone: Payer Group Member ID Coverage Type Subscriber Relationship to Subscriber Effective Date Expiration Date John GUTIÉRREZ Id: [id number] [place] , P Id: [id number] [address] [place] [address] Home Phone: Email: [email or web address] [employer] Id: [id number] [place] , P Id: [id number] [address] [place] [place] [address] Home Phone: Email: [email or web address] [email or web address] Encounter Location(s) Arrival/Admit Date Discharge/Departure Date Discharge/Departure Disposition Provider(s) Non-patient / Non-visit -[facility] 2024 12:15pm Ambrose Colvin MDNon-patient / [facility] January 27, 2025 11:26amGeorge Kenzie Colvin, MDDeparted Physician/Provider Office Visit-[facility] 2024 11:04amOctober 2024 11:53amDischarged to home care or self care (routine discharge)HUA Guyepoxon hilled Physician/Provider Office Visit-[facility] Family [facility] March 02, 2025 11:46amOctober 2024 12:44pmDischarged to home care or self care (routine discharge)[facility] 2024 11:05amOctober 2024 11:33amDischarged to home care or self care (routine discharge)Joe Barksdale , DO Recent Diagnosis Onset Date Admit Date CHF (congestive heart failure) Unknown O ctober 2024 11:04am Chronic pain Unknown February 24 11:04am Diabetes Unknown February 24 11:04am Hyperlipidemia Unknown February 24 11:04am Hypertension Unknown February 24 11:04am Shoulder pain, left Unknown February 24, 2025 11:04am CHF (congestive heart failure) Unknown O ctober 2024 11:46am COPD (chronic obstructive pu lmonary disease) with emphysema Unknown March 02, 2025 11:46am Diabetes Unknown March 02 11:46am Hyperlipidemia Unknown March 02 11:46am Hypertension Unknown March 02 11:46am Hypothyroidism Unknown March 02 11:46am Polyarthralgia Unknown March 02 11:46am Sinus drainage Unknown March 02 11:46am Vitamin D deficiency Unknown February 11:46am Acute cough Unknown March 19 11:05am COPD (chronic obstructive pu lmonary disease) with emphysema Unknown March 19, 2025 11:05am Assessments Author Joe Barksdale [facility] 12:50pmThe above note written by ___Gail Saul____ acting as human recorder, note dictated by Dr. Jones .I performed the above HPI, ROS, and Examination. I formulated and dictated the treatment plan and was present for entire encounter. Joe Barksdale D.O. Author Joe Barksdale [facility] 2024 12:00pmThe above note written by ___Gail Saul____ acting as human recorder, note dictated by Dr. Jones .I performed the above HPI, ROS, and Examination. I formulated and dictated the treatment plan and was present for entire encounter. Joe Barksdale D.O. Plan of Treatment Author Gail Saul [facility] 2024 12:44pmContinue with medication and follow with specialist as directed. We discussed that her echocardiogram from 12/25/24 showed that her ejection fraction was 55%. I explained this to her in detail, all questions were answered. I also reviewed her stress test results from 12/25/24 with her today, a visual aid was used to explain. Again, we discussed the results in detail. We discussed congestive heart failure today and what this means and how it affects the body. Sign/symptoms of CHF were reviewed. She admits she is feeling so much better. She can go in/out of CHF. We discussed that she needs to drink two liters of water daily and not overdo the water unless she is outside working/sweating. She should not overdo the water. She has an appointment to see Lorena Rico in March (2024). Her blood pressure is better than it was when she was here last. She admits she is not in as much pain as she was since she started the Tramadol. Her Vitamin D level is 43.0. Continue with Vitamin D supplementation. Discussed cholesterol results with patient today. Total is 130. HDL is 67. LDL is 53. Triglycerides are 54. VLDL is 10.8. These are good results. She is to continue with her healthier options. Watch intake of carbs and sugars. Stay active now that she feels better. Discussed thyroid results with her today. TSH is 0.282. Free T3 is 3.08. Free T4 is 2.15. At this time I would like to decrease her Levothyroxine from 200 MCG to 175 MCG daily. Guidance is given on how to take the lower dose. She agrees. She admits she feels anxious which is a sign of her thyroid being over replaced. Will repeat thyroid studies in three months. She voices that the Tramadol is helping, she has been able to walk almost a half a mile with the medication. She has been clear headed on the medication. She has been able to do stairs which she was not able to do previously. She is hopeful that the medication will continue to help her. She was even able to do her laundry. She is to continue with the medication. I did recommend she have Narcan available to her incase needed. She refuses Narcan. She is provided with a new prescription for Tramadol today. She voices she did research on the Gennaro shot Dexalog 12 which is patent pending. I did explain to her that this is a steroid injection (Dexamethasone, Kenalog and B12). She should not get this injection. This may tip her into CHF because it would make her body hang onto extra fluid. She voices understanding.?? Frequent appointments needed due to addiction potential [...] no current substance abuse treatments are being prescribed.? She was put on Farxiga at the end of December (2024). Her glucose is 145. HgA1C is 8.4. Insulin level is 12.7, would like to see this in the single digit range. Suspect that her next A1C will be much better. Her triglyceride level is good which goes hand in hand with blood sugar. Her insulin level is also not bad. I encouraged her to continue with the Farxiga. Now that she has not been on steroids and can begin with some exercise and watching her diet to include intake of carbs and sugars I expect her A1C to be much better when next checked. She is eating healthier. She has had a lot of phlegm in her throat recently. She does not drink a lot of dairy. I did recommend that she rid the glass of milk that she drinks daily for one week to see if this is the cause of this. I do not want to treat her with any Prednisone. I want her to call me in one week to let me know if this has helped. Mucinex can either help or hurt as it can thin the mucous but the let down can cause more phlegm in the back of her throat.?? Her left ear hurts, on exam there is nothing abnormal found. I suspect the pain is referred pain due to drainage.?? Author Gail Saul [facility] HospitalAutbar[facility] hospitalOct[facility] 2024 11:32amHer chest x- ray done 03/17/25 showed no acute cardiopulmonary abnormality. She did not improve with ten days of Augmentin. I did explain to her that she may have an atypical bacteria or a virus. She voices that she has had stuff that falls into the categories of Biaxin and Levaquin and was told that these could be removed from her med list in the past. I am not going to add any Prednisone due to her history. I did discuss adding high dose Zithromax which covers atypical bacteria and also decreases inflammation. She is agreeable to this plan. Also explained to her that if this is a viral process her cough can last up to six weeks. She admits she is run down from taking care of two of her aunts, one just had a heart attack and the other was diagnosed with her third cancer so she is not resting or taking care of herself. After evaluation I did recommend that she use her albuterol breathing treatments right now, anytime she is home (4 times a day). If she is out and not home she should use the rescue inhaler. Side effects/risks/benefits of the medication were reviewed. The Zithromax will last in her body for an additional five days after she has finished taking the medication. She will not be contagious after Sunday03/22/25. She has an appointment to see Lorena Rico on 04/01/25, I do want her to keep that appointment. Author Gail Saul [facility] HospitalAuthoredOctober 2024 11:50amShe voices that she had a work up done for her lungs and was on repeated treatment with Prednisone in the spring (2024). The last time she was off the Prednisone she was off of it long enough to have a stress test and echo done and the stress test came back abnormal. She saw the streets and buildings decorator on a Sunday and he told her [...] and then Dr. Espino started her on Farxiga so she was told to stop the [...] I did advise her that Meloxicam worsens CHF.??Dr. Espino suggested a GLP-1 but she refuses [...] no current substance abuse treatments are being prescribed.? She is going to see her strategic partnership specialist for ongoing left shoulder pain. Her [...] Ordered Date Scheduled Date Comprehensive Metabolic Panel March 02, 2025 12:01pm 6 Months Insulin March 02, 2025 12:01pm 6 Mon ths Future Visits Future appointment information is unavailable Future Procedures Procedure Name Ordered Date Scheduled Date A1C with Estimated Average Glu March 02 12:01pm 6 Months A1C with Estimated Average Glu March 02 12:17pm 3 Months Basic Metabolic Panel March 02, 2025 12:18pm 3 Months Complete Blood Count Auto Diff March 02 12:01pm 6 Months Lipid Panel March 02, 2025 12:01pm 6 Mon ths Triiodothyronine (T3) Free March 02, 2025 12 :01pm 6 Months Triiodothyronine (T3) Free March 02, 2025 12 :17pm 3 Months Free T4 (Free Thyroxine) March 02, 2025 12:0 1pm 6 Months Free T4 (Free Thyroxine) March 02, 2025 12:1 7pm 3 Months Thyroid Stimulating Hormone March 02, 2025 1 2:01pm 6 Months Thyroid Stimulating Hormone March 02, 2025 1 2:17pm 3 Months Vitamin D 25 Hydroxy Total March 02, 2025 12 :01pm 6 Months Future Medications Future medication information is unavailable Patient Instructions Patient instructions are unavailable
[2025-03-24] VITALS (29 sets, daily range): BP systolic 137–159; BP diastolic 85–95; PULSE 77–98; TEMP 36.3–37; O2SAT 80–100; BMI 43.8; BMI 42.8
--- NOTE | 2025-03-24 17:46 | ECG_ITS ---
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 Measurements Intervals [place] Rate: 90 P: 23 VA: 154 QRS: 70 QRSD: 76 T: 74 QT: 350 QTc: 398 Interpretive Statements [address]-T wave changes Abnormal ECG Compared to ECG 08/05/2024 10:55:05 No significant changes Electronically Signed On 03-24-2025 21:03:54 EST by NEO DEE M.D.
--- NOTE | 2025-03-24 17:46 | XR_ITS ---
The [address] [address] Patient Name: CANELO SINGH MRN: [id number] date: 1965 Sex: F Assigned Patient Location: ER Current Patient Location: ER Accession/Order Number: [id number] Exam Date: 03/24/2025 18:24 Report Date: 03/24/2025 18:45 At the request of: KHRIS WARD DO Procedure: XR chest 1V Plain film chest Single view HISTORY: Shortness of breath COMPARISON: 03/09/2025 FINDINGS: SUPPORT DEVICES: None POSTSURGICAL CHANGES: None HEART: Within normal limits PULMONARY LORENZO: Within normal limits MEDIASTINUM: Unremarkable LUNGS AND PLEURA: No acute lung process, pleural effusion or pneumothorax identified. BONY STRUCTURES: Intact ADDITIONAL FINDINGS None XR/XR chest 1V IMPRESSION: No acute process. Impression dictated by: Omid Seals M.D. 03/24/2025 6:45 PM Dictation Location: [employer] Electronically authenticated by: [id number] Date: 03/24/2025 18:45
--- NOTE | 2025-03-24 17:48 | ED_ITS ---
HPI - SOB/Dyspnea General Chief Complaint: Shortness of Breath/Dyspnea Stated Complaint: SOB/ SICK FOR 3 WEEKS/ STEADILY GETTING WORSE Time Seen by Provider: 03/24/25 17:46 Mode of arrival: walk-in Limitations: no limitations History of Present Illness HPI Narrative: The patient is a very pleasant 59-year-old female with a history of dyslipidemia, hypothyroid, congestive heart failure and asthma. Patient is presenting today for shortness of breath. The patient states that it feels like asthma. She is experiencing some chest tightness and some shortness of breath. The patient has never had to be intubated. Patient's been having trouble breathing for 3 weeks. The patient has had numerous therapies for this. She was on antibiotics for apparently 10 days she does not recall which one it was. Then she was on another antibiotic for 5 days. And that antibiotic has just stopped. The patient has been using her nebulized albuterol 4 times a day and she is not having any relief. The patient has not been placed on any steroids. She states that the doctor did not want to give her steroids because they thought it would interact with her congestive heart failure. In reference to the patient's congestive heart failure this is relatively a new diagnosis for her. But she has been taking all of her medications as prescribed and was told that she is doing very well from that standpoint. Patient does not feel like she is more short of breath laying flat and has not had any increase in her lower extremity edema. There has been no fever or chills. No sick contacts or recent travel. Patient is a non-smoker. Patient has a lifelong history of asthma. Symptoms are moderate in severity. Related Data Home Medications ?Medication ?Instructions ?Recorded ?Confirmed cetirizine 10 mg tablet 10 mg PO .QHS 06/30/2308/06 levothyroxine 175 mcg tablet 200 mcg PO DAILY 06/30/23 08/05/24 losartan 50 mg tablet 50 mg PO DAILY 06/30/2307/19 metformin 500 mg tablet,extended 1,000 mg PO DAILY 03/1308/05/24 release 24 hr Held on 08/06/24. Instructions: Resume on 08/09/24. cyclobenzaprine 10 mg tablet 10 mg PO BEDTIME 08/05/24 08/05/24 esomeprazole magnesium 40 mg 40 mg PO DAILY 08/05/24 0 08/05/24 capsule,delayed release fluticasone 250 mcg-salmeterol 50 1 inh inhalation BID 08/05/24 08/05/24 mcg/dose blistr powdr for inhalation (Advair Diskus) meloxicam 15 mg tablet 15 mg PO DAILY 08/05/2407/19 Previous Rx's ?Medication ?Instructions ?Recorded albuterol sulfate 90 mcg/actuation 2 inh inhalation Q4 H PRN shortness 08/06/24 aerosol inhaler of breath or wheezing #6.7 g wilfrid azithromycin 250 mg tablet See Rx Instructions PO .COM PLEX #6 08/06/24 (Zithromax Z-Paul) tabs levothyroxine 25 mcg tablet 25 mcg PO ACB 30 days #30 tabs 08/06/24 prednisone 20 mg tablet 20 mg PO BID 7 days #14 tabs 08/06/24 Allergies Allergy/AdvReac Type Severity Reaction Status Date / Time gatifloxacin (From Gynesonics) Allergy Mild Rash Verified 08/05/24 10:56 Review of Systems ROS Narrative 10 Systems were reviewed, and unless not ed in the HPI, all other systems are reviewed, unremarkable, or noncontributory. [facility] Medical History Spinal stenosis ?M48.00 - Spinal stenosis, site unspecified (ICD-10) GERD without esophagitis ?K21.9 - Gastro-esophageal reflux disease without esophagitis (ICD-10) Non-insulin dependent diabetes mellitus Asthma, mild intermittent ?J45.20 - Mild intermittent asthma, uncomplicated (ICD-10) Essential (primary) hypertension ?I10 - Essential (primary) hypertension (ICD-10) Surgical History History of repair of rotator cuff ?Z98.890 - Other specified postprocedural states (ICD-10) History of appendectomy ?Z90.49 - Acquired absence of other specified parts of digestive tract (ICD- 10) History of cholecystectomy ?Z90.49 - Acquired absence of other specified parts of digestive tract (ICD- 10) History of hysterectomy ?Z90.710 - Acquired absence of both cervix and uterus (ICD-10) Family History Father Family history of stroke Family history of myocardial infarction Family history of hypertension Family history of diabetes mellitus Family history of CHF (congestive heart failure) Grandmother Family history of stroke Family history of hypertension Family history of diabetes mellitus Grandfather Family history of myocardial infarction Family history of hypertension Brother Family history of myocardial infarction Family history of hypertension Aunt Family history of hypertension Family history of cancer Family history of COPD (chronic obstructive pulmonary disease) Social History Within the past year, how often did you have a drink containing alcohol: monthly or less Smoking status: Never smoker Non-prescribed substance use: denies use Highest level of school completed/degree received: high school graduate Little interest or pleasure in doing things: not at all Feeling down, depressed, or hopeless: not at all Exam Narrative Exam Narrative: Prior to examining the patient, I have washed with hospital approved and provided Antiseptic Hand Insulation Power Unit Tender and have also applied gloves.? Prior to touching the patient, I asked for consent to examine the patient.? General: Alert and oriented, well nourished, moderate distress, increased BMI Eye: PERRL, EOMI, normal conjunctiva. Glasses HENT: Normocephalic, normal hearing, moist oral mucosa, no scleral icterus, no sinus tenderness. Neck: Supple, non-tender, no carotid bruits, no JVD, no lymphadenopathy. Lungs: Nonlabored respirations with the patient does have some small amount of conversational dyspnea. Diffuse and expiratory wheezing throughout bilateral lung arvizu without any rhonchi or rales appreciated. Heart: Normal rate, regular rhythm, no murmur, gallop or edema. Abdomen: Soft, non-tender, non-distended, normal bowel sounds, no masses. Increased BMI Musculoskeletal: Normal range of motion and strength, no tenderness or swelling. Skin: Skin is warm, dry and pink, no rashes or lesions. Neurologic: Awake, alert, and oriented X3, CN II-XII intact. Psychiatric: Cooperative, appropriate mood and affect.? Following the conclusion of the examination, I have washed my hands thoroughly after removing examination gloves. Constitutional Vital Signs, click to edit/add: Last Vital Signs Temp 98.6 F 03/24/25 17:29 Pulse 93 H 03/24/25 18:05 Resp 18 03/24/25 18:05 BP 137/95 H 03/24/25 17:29 Pulse Ox 95 03/24/25 18:05 O2 Del Method Room Air 03/24/25 18:05 Course Course Hospital Course: In summary the patient is a 59-year-old asthmatic who is presenting to the emergency department with shortness of breath with failed outpatient therapy with 2 antibiotics and her nebulizer. Upon arrival the patient received a DuoNeb treatment. We are going to give the patient magnesium 2 g IV piggyback, Solu-Medrol 125 mg IV piggyback. We are withholding IV fluid secondary to the patient's history of congestive heart failure. Reevaluation(s) Reevaluation #1: Went in to reevaluate the patient. Patient's wheezing perhaps a little bit more now than she was prior. Albuterol 5 mg ordered. In addition, the patient is nauseous. Working to add some Zofran 4 mg. Time: 18:46 Vital Signs Vital signs: Vital Signs Temperature 98.6 F 03/24/25 17:29 Pulse Rate 92 H 03/24/25 17:29 Respiratory Rate 20 03/24/25 17:29 Blood Pressure 137/95 H 03/24/25 17:29 Pulse Oximetry 94 L 03/24/25 17:29 Oxygen Delivery Method Room Air 03/24/25 17:29 Temperature 98.6 F 03/24/25 17:29 Pulse Rate 93 H 03/24/25 18:05 Respiratory Rate 18 03/24/25 18:05 Blood Pressure 137/95 H 03/24/25 17:29 Pulse Oximetry 95 03/24/25 18:05 Oxygen Delivery Method Room Air 03/24/25 18:05 MDM - SOB/Dyspnea MDM Narrative Medical decision making narrative: In summary the patient is a 59-year-old asthmatic who is presenting to the emergency department with shortness of breath with failed outpatient therapy with 2 antibiotics and her nebulizer. 19:00 this patient is signed out to my colleague Dr. Weaver at the conclusion of my shift. The patient is pending the results of albuterol nebulized treatment 5 mg and to see if she had any improvement with her magnesium infusion if she improves she could potentially go home with a steroid taper and increase frequency of her albuterol treatments for example every 4 hours. However if she does not improve significantly perhaps the patient would warrant an admission for acute exacerbation of asthma, intractable to conventional therapies. Differential Diagnosis Differential diagnosis: Likely acute exacerbation of chronic obstructive airways disease, congestive heart failure, community acquired pneumonia and asthma with exacerbation Medical Records Attestation: I reviewed the patient's medical records. Lab Data Attestation: I reviewed the patient's lab results. Lab results narrative: CBC reveals white blood cell count elevation. No evidence of anemia. Patient's basic metabolic panels unremarkable. Troponin and BNP are normal therefore I do not think it is cardiac in etiology either from ischemia or from congestive heart failure. Labs: Lab Results 03/24/25 Range/Units 17:45 WBC 12.4 H (4.0-11.0) 10^3/uL RBC 5.15 (4.20-5.40) 10^6/uL Hgb 15.7 (12.0-16.0) g/dL Hct 46.9 (36.0-48.0) % MCV 91.1 (81.0-99.0) fL MCH 30.5 (26.7-34.0) pg MCHC 33.5 (29.9-35.2) g/dL RDW 11.5 (11.0-15.0) % Plt Count 394 (150-450) 10^3/uL MPV 10.3 (9.5-13.5) fL Neut % (Auto) 67.8 (43.0-75.0) % Lymph % (Auto) 20.3 L (20.5-60.0) % Ritchie % (Auto) 5.5 (1.7-12.0) % Eos % (Auto) 5.2 (0.9-7.0) % Baso % (Auto) 0.9 (0.2-2.0) % Neut # (Auto) 8.4 H (1.4-6.5) 10^3/uL Lymph # (Auto) 2.5 (1.2-3.8) 10^3/uL Ritchie # (Auto) 0.7 (0.3-0.8) 10^3/uL Eos # (Auto) 0.6 (0.0-0.7) 10^3/uL Baso # (Auto) 0.1 (0.0-0.1) 10^3/uL Abs Immat Gran (auto) 0.04 H (0.00-0.03) 10^3/uL Imm/Tot Granulo (auto) 0.3 (0.0-0.5) % Sodium 140 (136-145) mmol/L Potassium 3.8 (3.5-5.1) mmol/L Chloride 101 (98-107) mmol/L Carbon Dioxide 26.1 (21.0-32.0) mmol/L Anion Gap 16.7 BUN 19.0 H (7.0-18.0) mg/dL Creatinine 0.88 (0.55-1.02) mg/dL Est GFR ( Amer) >60 (>=60 mL/min/1.73m^2) Est GFR (Non-Af Amer) >60 (>=60 mL/min/1.73m^2) BUN/Creatinine Ratio 21.6 Glucose 163 H (74-106) mg/dL Calcium 9.9 (8.5-10.1) mg/dL Troponin I High Sens 5.4 (4.0-51.3) pg/mL NT-Pro-B Natriuret Pep 31.0 (<=900.0) pg/mL Imaging Data Chest x-ray: Radiologist's impression: ITS Impressions Chest X-Ray 03/24/25 17:46 IMPRESSION: No acute process. Impression dictated by: Omid Seals M.D. 03/24/2025 6:45 PM Dictation Location: [place] [address] Electronically authenticated by: [id number] Y Date: 03/24/2025 18:45 ECG Data Attestation: I personally reviewed and interpreted this ECG as follows: ECG interpretation date: 03/24/25 ECG interpretation time: 17:40 Prior ECG tracings: not available for review Interpretation: EKG reveals a normal sinus rhythm with a ventricular rate of 90 bpm. The HI interval and QRS duration are normal. QTc is not prolonged. Cuthbert is normal. No evidence of ST segment elevation or depression suggesting infarction or ischemia. Summary: Normal EKG. Critical Care Time Critical Care Time Total Critical Care Time: 35 Attestation: This is needed further treatment and prevention of clinically significant life- threatening hypoxia or respiratory failure. This required emergent evaluation numerous repeat physical exam assessments. Required critical thinking as well as reviewing old medical record documentation and documenting the patient's medical record where they were in the emergency department to help facilitate continuity of care. Discharge Plan Discharge Patient Disposition: Still a Patient
[2025-03-24] MEDS: IPRATROPIUM/ALBUTEROL SULFATE 3 ML AMPUL.NEB IH ×2 (18:02→22:22)
[2025-03-24 18:12] LABS: Hematocrit 46.9 % (36.0-48.0); Hemoglobin 15.7 g/dL (12.0-16.0); Immature Granulocytes Abs Auto 0.04 10^3/uL (0.00-0.03); Immature Granulocytes Pct Auto 0.3 % (0.0-0.5); Lymphocytes Absolute Auto 2.5 10^3/uL (1.2-3.8); Mean Corpuscular HGB Conc 33.5 g/dL (29.9-35.2); Mean Corpuscular Hemoglobin 30.5 pg (26.7-34.0); Mean Corpuscular Volume 91.1 fL (81.0-99.0); Platelet Count 394 10^3/uL (150-450); Red Blood Count 5.15 10^6/uL (4.20-5.40); White Blood Count 12.4 10^3/uL (4.0-11.0)
[2025-03-24] MEDS: MAGNESIUM SULFATE IN WATER 2 GM/50 ML PREMIX IV (18:32)
[2025-03-24] MEDS: METHYLPREDNISOLONE SOD SUCC PF 125 MG/2 ML VIAL IVP (18:32)
[2025-03-24 18:35] LABS: Anion Gap 16.7; Blood Urea Nitrogen 19.0 mg/dL (7.0-18.0); Calcium 9.9 mg/dL (8.5-10.1); Carbon Dioxide 26.1 mmol/L (21.0-32.0); Chloride 101 mmol/L (98-107); Estimated GFR (African America >60 (>=60 mL/min/1.73m^2); Estimated GFR (Non-African Ame >60 (>=60 mL/min/1.73m^2); Glucose 163 mg/dL (74-106); NT Pro B Type Natriuretic Pept 31.0 pg/mL (<=900.0); Potassium 3.8 mmol/L (3.5-5.1); Sodium 140 mmol/L (136-145)
[2025-03-24] MEDS: ALBUTEROL SULFATE 2.5 MG/3 ML VIAL NEB IH (19:16)
--- OUTSIDE RECORDS SUMMARY | 2025-03-24 19:23 | XMS_ITS | Clinical Summary ---
Author Organization [facility] Address [address] [place] [id number] Care Team Providers Care Inspector Brake Lining Name Role Phone Joe Barksdale Lilli BETH Primary Care Provider [phone] Allergies Active AllergyReactionsCriticalityNoted DateCommentsClarithromycinItching 05/16/2007 nerve difficulty Cefuroxime IlrhmlPeaylih45/27/2007 nerve difficulty BrtdqjwpbqcEylekhr78/27/4411GktviebkvjxkRmtlyuk06/27/2007 nerve difficulty LorazepamOther: See Zphmcjnu56/27/2022MetforminOther: See Vruippjb34/27/2022 PlqemyhszfwpZyghjea10/27/2007 nerve difficulty Medications MedicationSigDispense QuantityRefillsLast FilledStart DateEnd DateStatus cetirizine hcl(ZYRTEC 10 MG TAB) Indications:Myalgia and myositis, unspecifiedTake one(1) tablet daily.0 05/16/2007ctive fluticasone/salmeterol(ADVAIR DISKUS 250 MCG-50 MCG/DOSE FOR INHALATION) Indications:Myalgia and myositis, unspecifiedTake one(1) inhalation twice daily; rinse and gargle mouth with water after each use.ctive esomeprazole mag trihydrate(NEXIUM 40 MG CAP) Take one(1) capsule daily.ctive mometasone furoate(NASONEX 50 MCG/ACTUATION SPRAY) [place] twice in each nostril once daily.ctive montelukast [...] with hyperglycemia, without long-term current use of ugqqals5510/11/2021ensorineural hearing loss, ishambzdb77/29/2019CFS (chronic fatigue syndrome)09/20/2015Fibromyalgia 09/20/2015BMI 50.0-59.9, adult09/20/2015Binge eating /02/2016 Yulisa's fktbpoc3609/20/2015Metabolic mbystnrg27/02/2016 Family History Medical HistoryRelationCommentsHypertensionBrotherMIBrotherDiabetesFather Ischemic Heart DiseaseFatherKidney failureFatherStrokeFatherPulmonary embolism Motherpituitary tumorMotherRelationStatusCommentsBrotherAliveFatherDeceased MotherDeceased Social History Tobacco UseTypesPacks/DayYears UsedDateSmoking Tobacco: NeverSmokeless Tobacco: NeverAlcohol UseStandard Drinks/WeekCommentsNot Currently0 (1 standard drink = 0.6 oz pure alcohol)rarelyPHQ-2AnswerDate RecordedPHQ-2 upjno957rea Deprivation IndexAnswerDate RecordedNational Score (1-100), lower number is lower wkfe778906/07/2022State Score (1-10), lower number is lower riskNot on file 3Data from: https://www.neighborhoodatlas.medicine.[facility].edu/. Last address used for jjyszpfrcpv[address]06/07/[birth year]22CommentsNoSex and Gender InformationValueDate RecordedSex Assigned at OvaalKsvlgc23/25/2022 10:20 PM ESTLegal YfxAqbfzj64/02/2012 8:11 AM ESTGender TvpownyzNhknsy72/25/2022 10:20 PM ESTSexual OrientationNot on file Last Filed Vital Signs Vital SignReadingTime TakenCommentsBlood Owhlvtac781/9310/07/2021 1:46 PM EDT Zbfmy418010/07/2021 1:46 PM BOSLngnvfxcqib64.1 ??C (98.7 ??F)06/26/2008 12:30 PM ESTRespiratory Rate--Oxygen Saturation--Inhaled Oxygen Concentration--Weight 125.8 kg (277 lb 6.4 oz)10/07/2021 1:46 PM JTFNudbun124.1 cm (5' 5 )03/30/2016 3:51 PM ESTBody Mass Index46.16105/30/2015 3:51 PM EST Plan of Treatment Health MaintenanceDue DateLast DoneCommentsAnxiety Krxvbgitc32/23/1986Depression Pfumwbxdh87/23/1986HIV Wvjzyneye19/23/1986Hepatitis B Vaccine (1 of 3 - 19+ 3- dose series)09/10/1986Cervical Cancer Dznloehxw56/23/1989Mammogram Screening 2007CT Qaeddlcevzvf43/23/2013Cologuard (FIT-DNA)09/10/2012Colonoscopy 09/10/2012Colorectal Cancer Oxsbgvitv85/23/2013Fecal Occult Blood09/10/2012Lipid Etmknlpub57/23/3574Irttukmacescb41/23/2013Pneumococcal Vaccine: 50+ (1 of 1 - PCV)09/10/2017Shingrix Vaccine (1 of 2)09/10/2017DTaP,Tdap,Td Vaccine (2 - Td or Tdap)/Diabetes Zslavljzl71/, 10/07/2021, 06/16/2021, Additional history existsCovid-19 Vaccine (3 - 2024- season) /10/2020, 09/02/2020Influenza Vaccine (#1) Hepatitis C MhioqysyuQovnffhsx61/27/2007 Procedures Procedure NamePriorityDate/TimeAssociated DiagnosisCommentsCOMPREHENSIVE METABOLIC SHNMFPhchqhk00/20/2022 2:42 PM EDT Controlled type 2 diabetes mellitus without complication, without long-term current use of insulin (HCC) HEP REMOTE PANEL VXZkrqbyh61/27/2007 2:25 PM EST Myalgia And Myositis Nos from Last 3 Months or Most Recently Relevant to Health Maintenance Results * (ABNORMAL) COMP METABOLIC PANEL (10/07/2021 2:42 PM EDT)ComponentValueRef RangeTest MethodAnalysis TimePerformed AtPathologist SignatureProtein, Total 7.36.3 - 8.0 g/dL10/07/2021 8:04 PM [facility] LABAlbumin 4.83.9 - 4.9 g/dL10/07/2021 8:04 PM [facility] Calcium, Total10.3(H)8.5 - 10.2 mg/dL10/07/2021 8:04 PM [facility] LABBilirubin, Total0.50.2 - 1.3 mg/dL10/07/2021 8:04 PM EDT [facility] LABAlkaline Oqetkripxqd2564 - 123 U/L10/07/2021 8:04 PM [facility] ORDEQO4374 - 35 U/L10/07/2021 8:04 PM [facility] BLDPOT498 - 38 U/L10/07/2021 8:04 PM EDT [facility] SRVNuidlcp902(H)74 - 99 mg/dL10/07/2021 8:04 PM [facility] LABComment: The [place] Diabetes Association (ADA) provides guidance for cutoff [...] Standards of Medical Care in Diabetes 2016, [place] Diabetes Association. Diabetes Care. 2016.39(Suppl 1). NGN227 - 21 mg/dL10/07/2021 8:04 PM [facility] Creatinine0.700.58 - 0.96 mg/dL10/07/2021 8:04 PM [facility] JSNFwwhjq459013 - 144 mmol/L10/07/2021 8:04 PM [facility] LABPotassium4.13.7 - 5.1 mmol/L10/07/2021 8:04 PM [facility] YDZIeiggwli75339 - 105 mmol/L10/07/2021 8:04 PM [facility] ZOUYC84064 - 30 mmol/L10/07/2021 8:04 PM [facility] LABAnion Brx319 - 18 mmol/L10/07/2021 8:04 PM [facility] LABEstimated Glomerular Filtration Zmif764>=60 mL/min/1.73m 10/07/2021 8:04 PM [facility] LABComment:Estimated Glomerular Filtration Rate (eGFR) is calculated [...] VolumeCollection TimeReceived TimeBloodBLOOD SPECIMEN / UnknownVenipuncture / Vqntqgk4910/07/2021 2:42 PM EDT10/07/2021 2:42 PM EDT Narrative Authorizing ProviderResult TypeResult StatusNeto Ansari MDLABORATORYFinal ResultPerforming OrganizationAddressCity/State/ZIP CodePhone Number [facility] [address] [address], * HEP REMOTE PANEL BL (05/16/2007 2:25 PM EST)ComponentValueRef RangeTest Method Analysis TimePerformed AtPathologist SignatureHep B Core Ab, TotalNegative NEGATCLEVELAND CLINIC MAIN LABORATORYHep C Antibody IANegativeNEGATCLEVELAND CLINIC MAIN LABORATORYHBsAgNegativeNEGATCLEVELAND [facility] MAIN LABORATORYHep B Surface Ab, QualNegativeNEGATCLEVELAND CLINIC [...] Shar Seymour MDLABORATORYFinal ResultPerforming OrganizationAddressCity/State/ZIP CodePhone Number [facility] [address] [place] [address] from Last 3 Months or Most Recently Relevant to Health Maintenance Insurance Care Teams Team MemberRelationshipSpecialtyStart DateEnd Date Joe Barksdale DO [address] [place] [id number] [facility] - [facility]08/01/18
--- OUTSIDE RECORDS SUMMARY | 2025-03-24 19:23 | XMS_ITS | Clinical Summary ---
Author Organization [facility] Address [address] [place] [address] Phone Care Team Providers Care Salad Maker Name Role Phone Joe Barksdale DO Primary Care Provider [phone] Social History Tobacco UseTypesPacks/DayYears UsedDateSmoking Tobacco: Never Assessed CommentsUnknownSex and Gender InformationValueDate RecordedSex Assigned at Not on fileLegal RzlCipyna17/25/2022 1:13 PM ESTGender IdentityNot on fileSexual OrientationNot on file Plan of Treatment Health MaintenanceDue DateLast DoneCommentsCT Boapooaowrtq60/23/1968Colonoscopy 1967Colorectal Cancer Lnqczebus55/23/1968FIT-DNA (Cologuard)1967FIT 1967HIV Wqwurlhqy62/23/1968Lipid Panel09/11/19677503Nwzxgieojyxpk13/23/1968 Yearly Adult Msfeikhr81/23/1968MMR Vaccines (1 of 1 - Standard series)09/10/1968 Hepatitis C Cujglnmed33/23/1986Hepatitis B Vaccines (1 of 3 - 19+ 3-dose series) 09/10/1986Cervical Cancer Bpbvaevie24/23/1989HPV/Xnqltb1309/10/1988Pap Smear 09/10/1988DTaP/Tdap/Td Vaccines (1 - Tdap)09/10/19891620Vocvpeytq62/23/2008 Pneumococcal Vaccine (1 of 1 - PCV)09/10/2017Zoster [...] Team MemberRelationshipSpecialtyStart DateEnd Date Joe Barksdale DO [facility] - [facility]09/27/22
--- OUTSIDE RECORDS SUMMARY | 2025-03-24 19:23 | XMS_ITS | Encounter Summary ---
Author Organization [facility] Address [address] [place] [address] Care Team Providers Care Show Worker Name Role Phone Jeff Jon MD Primary Care Provider [phone] Encounter Details DateTypeDepartmentCare Team (Latest Contact Info)Qmfaxiotwpr33/16/2024Clinisync Result Encounter [facility] External Department Unsolicited Jennie Guillermo MD [address] [address] Social History Tobacco UseTypesPacks/DayYears UsedDateSmoking Tobacco: FormerCigarettes Smokeless Tobacco: NeverAlcohol UseStandard Drinks/WeekCommentsNot Currently1 (1 standard drink = 0.6 oz pure alcohol)CommentsUnknownSex and Gender InformationValueDate RecordedSex Assigned at UelnvTffsfu34/28/2023 1:50 PM EST Legal LrbJnrnbm40/15/2023 6:44 PM EDTGender IjdomkxhGkcype86/28/2023 1:50 PM EST Sexual OrientationNot on filedocumented as of this encounter Plan of Treatment Not on file documented as of this encounter Procedures Procedure NamePriorityDate/TimeAssociated DiagnosisCommentsCT INTERNAL AUDITORY CANALS/POSTERIOR FOSSA W IV KQXNBMAS13/16/2024 4:52 PM EDT documented in this encounter Results * CT internal auditory canals/posterior fossa w IV contrast (09/04/2023 4:52 PM EDT)Anatomical RegionLateralityModalityHead, NeckComputed TomographySpecimen (Source)Anatomical Location / LateralityCollection Method / VolumeCollection TimeReceived Time09/04/2023 4:52 PM EDT Narrative 09/04/2023 4:54 PM EDT [facility] ?[address] ? [place] [address] ? CT Scan Report ? Signed ? Patient: WEST,CANELO L ? MR#: [id number] ?? : 1965 ?Acct:[id number] ?? Age/Sex: 57 / F ?ADM Date: 09/04/23 ?? Loc: CT ? Attending Dr: Jennie Guillermo M.D. ? Ordering Physician: Jennie Guillermo M.D. ?? Date of Service: 09/04/23 ?? Procedure(s): CT int auditory canals w con ?? Accession Number(s): [id number] ? cc: JEFF JON ? [facility] ? [address] ? [place] [address] ? Patient Name: ?? CANELO Rogers MAGNA ? MRN: [facility]:[id number] ? date: 1965 ?Sex: F ?? Assigned Patient Location: CT ?? Current Patient Location: CT ?? Accession/Order Number: [id number] ?? Exam Date: 09/04/2023 ??13:20 ?Report Date: 09/04/2023 ??16:52 ? At the request of: ?? JENNIE ??APOLINAR ? Procedure: ??CT int auditory canals w con ? EXAM: CT int auditory canals w con ? HISTORY: Pulsatile Tinnitus Of Right Ear H93.A1, Cholesteatoma Ear a ? COMPARISON: CT brain 08/07/2022 ? TECHNIQUE: Axial helical CT images of the temporal bones were obtained without ? contrast. In addition the sagittal and coronal reformats were also obtained. ?? Dose reduction techniques were achieved by using automated exposure control ?? and/or adjustment of mA and/or kV according to patient size and/or use of ?? iterative reconstruction technique. ? FINDINGS: ? The study demonstrates normal appearance of the external auditory canals, ?? tympanic membranes, middle ear ossicles, the scutum, the Prussak's space and ?? middle ear cavity. ? The internal ear structures are also normal in appearance on both sides. There ? is no suggestion of cochlear or fenestral otosclerosis or dehiscence of the ?? superior semicircular canal. ? The internal auditory canals are normal and symmetric in size and ?? configuration. The facial nerves demonstrate normal course and caliber. There ?? is mild opacification of right-sided mastoid air cells. The left-sided mastoid ? air cells are clear. ? The temporomandibular joints (TMJ) are unremarkable. Visualized brain ?? parenchyma, sinuses, and orbits are unremarkable. ? CT/CT int auditory canals w con ?? IMPRESSION: ? Mild chronic right mastoid effusion. Otherwise, unremarkable temporal bone CT. ? Electronically authenticated by: DOYLE ??UNLU ?? Date: 09/04/2023 ??16:52 ? Dictated By: ?MARIUSZ,DOYLE Lombardo. ? Signed By: ?09/04/234 ? DD/ 1652 ? TD/TT: ? Slip Caster: Procedure Note Radiology, Radiologist, MD - 09/04/2023 [place] [address] CT Scan Report Signed Patient: CANELO SINGH LMR#: [id number] : 1965Acct:[id number] Age/Sex: 57 / FADM Date: 09/04/23 Loc: CT Attending Dr: Jennie Guillermo M.D. Ordering Physician: Jennie Guillermo M.D. Date of Service: 09/04/23 Procedure(s): CT int auditory canals w con Accession Number(s): [id number] cc: JEFF JON [place] [id number] Patient Name: CANELO SINGH MRN: [id number] date: 1965 Sex: F Assigned Patient Location: CT Current Patient Location: CT Accession/Order Number: [id number] Exam Date: 09/04/2023 13:20 Report Date: 09/04/2023 [...] VEE M.D. Signed By:09/04/231653 DD/ 51 TD/TT: Slip Caster: Authorizing ProviderResult TypeResult StatusHilary Ulises Guillermo MDIMTisha CT PROCEDURES Final Result documented in this encounter Visit Diagnoses Not on filedocumented in this encounter Care Teams Team MemberRelationshipSpecialtyStart DateEnd Date Jeff Jon MD [address] [place] [address] PCP - GeneralFamily Medicine10/18/22documented as of this encounter
--- OUTSIDE RECORDS SUMMARY | 2025-03-24 19:23 | XMS_ITS | Clinical Summary ---
Author Organization [facility] Address [address], [address] [place] [address] Care Team Providers Care Landcare Officer Name Role Phone Joe Barksdale DO Primary Care Provider Unavail able Social History Tobacco UseTypesPacks/DayYears UsedDateSmoking Tobacco: Never Assessed CommentsUnknownSex and Gender InformationValueDate RecordedSex Assigned at Not on fileLegal BtiOtjqhh01/29/2019 4:54 PM EDTGender IdentityNot on fileSexual OrientationNot on file Plan of Treatment Not on file Insurance Care Teams Team MemberRelationshipSpecialtyStart DateEnd Date Joe Barksdale DO PCP - Generalmi Medicine09/17/18
--- OUTSIDE RECORDS SUMMARY | 2025-03-24 19:24 | XMS_ITS | Clinical Summary ---
Author Organization [facility] Address [address] [place] [address] Care Team Providers Care Associate Professor Physician Name Role Phone Joe Barksdale Primary Care Provider [phone] Allergies Active AllergyReactionsCriticalityNoted DateCommentsGatifloxacinItching 05/16/2007 Other Reaction(s): [...] 309/509/6Active Active Problems ProblemNoted DateDiagnosed DateShortness of zwgqmf3501/05/2025Other chest pain 01/05/2025ardiovascular stress test qaxcsxzc15/18/2025id uzoujo6110/11/2023 Qaclxvj2410/11/20233666Puwash60/23/2024Elevated blood pressure opbwira3610/11/2023 Zihmmkbgo00/23/3217Rpdtqmuggcwdyf62/23/6072Vlecxpxgfyvm25/23/2024Hypothyroidism 10/11/20234476Wfniekxdsaztce27/23/2024Other fci (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 10/11/20232587Rxecsofsfiz63/23/3988Uwmqpdfkyjaaci49/23/2024Seasonal allergies 10/11/2023UTI (urinary tract infection)10/11/2023Vitamin D qludwetmkp38/23/2024 Ficmvdqz17/06/2024symmetric SNHL (sensorineural hearing loss)09/24/2023ight- sided ewyoyzhq87/06/2024holesteatoma of attic of ear, right08/21/2023ulsatile tinnitus of right ear08/21/2023bnormal taste in mouth10/04/2022llergic rhinitis due to animal hair and nwwrqx5610/04/2022astroesophageal reflux disease with bxyubieqjmt48/17/2023Type 2 diabetes mellitus with hyperglycemia, without long-term current use of qpltvwr0010/11/2021inge eating smyempzc27/02/2016BMI 50.0-59.9, adult09/20/2015CFS (chronic fatigue syndrome)09/20/2015Fibromyalgia 09/20/2015Hashimoto's ggcvdyz0209/20/2015Metabolic /02/2016 Encounters DateTypeDepartmentCare RqhjScdfdabvfhf99/29/2025Telephone [facility] [address] [place] [address] Yulia Huffman MA 02/09/2025 2:00 PM EDTFollow-Up [facility] [address] [place] [address] Ambrose Espino MD Chronic diastolic congestive heart failure (CMS/HCC) (Primary Dx); Primary hypertension; Mixed gjgsczuffyttcf42/15/2025Telephone [facility] [address] [place] [address] Yulia Huffman MA 01/12/2025Telephone [facility] [address] [place] [address] Betsy Peters MA 01/08/2025 8:30 AM EDT - 01/08/2025 9:30 AM EDTSurgery [facility] [address] [place] [address] Won Blanton MD Coronary thqgvrocitw50/21/2025 7:06 AM EDT - 01/08/2025 11:33 AM EDTHospital Encounter [facility] [address] [place] [address] Won Blanton MD Shortness of breath; Other chest pain; Cardiovascular stress test abnormal Discharge Disposition: Home or Self Care ()01/08/2025Orders Only [facility] [address] [place] [address] Renee Vaughn RN Hypertension (Primary Dx)01/08/20258243Zvggxd17/18/2025 10:30 AM EDTOffice Visit [facility] [address] [place] [address] Ambrose Espino MD Cardiovascular stress test abnormal (Primary Dx); Other chest pain; Shortness of breath; Primary hypertension; Mixed hyperlipidemia; Tzwgmylnkkbd50/18/0187Jtudjj68/18/2025Orders Only [facility] [address] [place] [address] Rosario Ac MD 12/29/2024Orders Only [facility] [address] [place] [address] Provider, MD Rosario from Last 3 Months Family History Medical HistoryRelationNameCommentsHeart attackFatherKidney diseaseFather Pulmonary embolismMotherRelationNameStatusCommentsBrotherAliveFatherDeceased MotherDeceased Social History Tobacco UseTypesPacks/DayYears UsedDateSmoking Tobacco: NeverSmokeless Tobacco: Never Tobacco Cessation:Counseling Given: Not Answered Alcohol UseStandard Drinks/WeekCommentsYes0 (1 standard drink = 0.6 oz pure alcohol)occasionalCommentsNoSex and Gender InformationValueDate Recorded Sex Assigned at NdrhjFpzhtu35/13/2025 2:06 PM EDTLegal WsxNmqdfo17/19/2025 8:53 AM EDTGender DtkyombuOnhtzk11/13/2025 2:06 PM EDTSexual OrientationHeterosexual or Ohxajaph13/13/2025 2:06 PM EDT Last Filed Vital Signs Vital SignReadingTime TakenCommentsBlood Jseqwnhd650/8609 2:23 PM EDT Wjodj1349 2:23 PM EDTTemperature--Respiratory Geee9799 11:08 AM EDTOxygen Quqqdldcsr53%02/09/2025 2:23 PM EDTInhaled Oxygen Concentration-- Ibmuly005 kg (271 lb)02/09/2025 2:23 PM UQDKkkvhb783.1 cm (5' 5 )02/09/2025 2:23 PM EDTBody Mass Index45. 2:23 PM EDT Plan of Treatment Health MaintenanceDue DateLast DoneCommentsCT Dhrjnicsuvyy96/23/1968Colonoscopy 1967Colorectal Cancer Nyrkradez80/23/1968Diabetes: Hemoglobin A1C 1967FIT-DNA1967FIT1967FOBT09/11/19675774Kszvseebolofk65/23/1968 Diabetes: Retinopathy Iehdtjydj61/23/1978Depression Lleozwlfe87/23/1980Diabetes: Urine Protein Nmzadjnmf39/23/1987Hepatitis B Vaccines (1 of 3 - 19+ 3-dose series)09/10/1986Pneumococcal Vaccine: Pediatrics (0 to 5 Years) and At-Risk Patients (6 to 64 Years) (1 of 2 - PCV)09/10/1986Pap Smear09/10/1988Cervical Cancer Czrclpcxf17/23/1998HPV/Kjifvq6509/10/19973118Nujsqgoss49/23/2008Zoster Vaccines (1 of 2)09/10/2017COVID-19 Vaccine (3 - season)505/10/2020, 09/02/2020Influenza Vaccine (#1)2025dult Ujlehwv00/25/989430/, 12/16/2011HIB VaccinesAged OutNo longer eligible based on [...] topic Procedures Procedure NamePriorityDate/TimeAssociated DiagnosisCommentsRIGHT HEART CATH Clclnug5001/08/2025 9:05 AM EDT Shortness of breath Other chest pain Cardiovascular stress test abnormal CORONARY ZPUWRSBDGKWWvqhwrh39/21/2025 9:05 AM EDT Shortness of breath Other chest pain Cardiovascular stress test abnormal POCT HBO2%Blvurni8101/08/2025 8:39 AM EDT ECG 12-WMGMJqdbqmf40/21/2025 8:13 AM EDT COMPLETE TRANSTHORACIC ECHO (TTE) W/WO IMAGING AGENT, STRAIN, 3D, BUBBLE STUDY Xynwuaw7612/29/2024 8:06 AM EDTLEXISCAN STRESS MYOCARDIAL PERFUSION IMAGINGRoutine [...] follow-up with Dr. Ambrose Espino her primary vice president talent management in the next 1 to 2 months [...] internal jugular vein was obtained. ??A 6 Swedish 11 cm sheath was inserted without difficulty. [...] left radial artery was obtained. ??A 6 Swedish glide sheath was inserted without difficulty. Bilateral [...] been documented. Authorizing ProviderResult TypeResult StatusGeorge Kenzie [facility] CARDIAC CATH PROCEDURESFinal Result * (ABNORMAL) POC Hb02% (01/08/2025 8:39 AM EDT)ComponentValueRef RangeTest MethodAnalysis TimePerformed AtPathologist ArttwigghKKBKNQ65%74.2(A)90 - 95 % QC Pass/FailPassedQC LOT #[id number] Expiration Date73,126SAMPLESITEnlSpecimen (Source)Anatomical Location / LateralityCollection Method / VolumeCollection TimeReceived TimeBloodVenous blood specimen / Jedvmhm6501/08/2025 8:39 AM EDT Narrative Chance Jenkins MT - 01/09/2025 5:53 AM EDT Oper 5175 Authorizing ProviderResult TypeResult StatusEhab [facility] MDPOINT OF CARE TEST ENTER/EDIT ORDERABLESFinal Result * Electrocardiogram, 12-lead (01/08/2025 8:13 AM EDT)ComponentValueRef RangeTest MethodAnalysis TimePerformed AtPathologist SignatureVentricular Quyn61KEHXV MUSEAtrial Mexc45GPOOA MUSEPR Aviwubns828zsNX MUSEQRS WWKMSBXL10zjHQ MUSEQT Gttwkwgj595kcAR MUSEQTC CALCULATION(BAZETT)445msGE MUSEP Wozn29kzekcoiLY MUSE R-Acvb76tptlramMV MUSET Wave Qvmf94yfggazuNU MUSESpecimen (Source)Anatomical Location / LateralityCollection Method / [...] RegionLateralityModalityUltrasound Narrative Authorizing ProviderResult TypeResult StatusHistorical Provider [place] [facility] [place] [place] ECHO PROCEDURESFinal Result * Lexiscan Stress Myocardial Perfusion Imaging (12/22/2024 9:26 AM EDT) Anatomical RegionLateralityModalityOther Narrative Authorizing ProviderResult TypeResult StatusHistorical Provider [place] [facility] STRESS PROCEDURESFinal Result from Last 3 Months Insurance * Guarantor: Laura Singh LAccganesh TypeRelation to PatientDate of BirthPhone Billing AddressPersonal/JdrunjCbgz49/23/1966 [facility] [place] [address] Care Teams Team MemberRelationshipSpecialtyStart DateEnd Date Joe Barksdale DO [address] [place] [address] PCP - GeneralFamily Medicine08/22/24
--- OUTSIDE RECORDS SUMMARY | 2025-03-24 19:24 | XMS_ITS | Clinical Summary ---
Author Organization [facility] Address [address] [place] [address] Care Team Providers Care Ground Service Equipment Mechanic Name Role Phone Joe Barksdale MD Primary Care Provider [phone] Allergies Active AllergyReactionsCriticalityNoted GwthWnqqvjpnCvomxpoxijOabcbay29/27/2007 nerve difficulty ClarithromycinDiarrhea,BvublsxRpz77/27/2007 nerve difficulty GatifloxacinGI intolerance,Owdhxjr5605/16/2007 Other Reaction(s): Unknown Other Reaction(s): Unknown nerve difficulty IbylkqjouswgJrprgik02/27/2007 Other Reaction(s): Abdominal Pain, itches/pain nerve difficulty BabqoakkqRjmcktm20/27/2022 Medications MedicationSigDispense QuantityRefillsLast FilledStart DateEnd DateStatus metFORMIN [...] nostril DailyActive Active Problems ProblemNoted DateDiagnosed DateAcid thexsd5110/11/20231995Serrpsf94/23/2024sthma 10/11/2023Elevated blood pressure cmuzmlj9310/11/20233969Ysajtspjo69/23/2024 Gbdbjniituvkkn00/23/9421Cwgioekdvqfv24/23/3898Frxkgiaapsnmvt62/23/2024 Oeihkoxvblbdit54/23/2024Other local company intermodal truck driver (current) drug hgxlpiu3410/11/2023 Dmezaewadpj13/23/1616Rfxttvhaujnzof99/23/2024Seasonal bytvbhuyd61/23/2024UTI (urinary tract infection)10/11/2023Vitamin D hyoowswmkr37/23/2024symmetric SNHL (sensorineural hearing loss)09/24/2023ight-sided ijxzhvgp00/06/2024iabetes 09/24/2023ulsatile tinnitus of right ear08/21/2023holesteatoma of attic of ear, right08/21/2023bnormal taste in mouth10/04/2022llergic rhinitis due to animal hair and fcnclv5310/04/2022astroesophageal reflux disease with esophagitis 10/04/2022Mixed conductive and sensorineural hearing loss of right ear with restricted hearing of left ear10/04/2022Sensorineural hearing loss, bilateral 12/16/2018Binge eating mhqjcmlu51/02/2016BMI 50.0-59.9, adult09/20/2015CFS (chronic fatigue syndrome)09/20/20158091Evbmsqzpvcmo22/02/2016Hashimoto's disease 09/20/2015Metabolic adorrypy98/02/2016 Resolved Problems ProblemNoted DateDiagnosed DateResolved SclwJbotojzhbszev68 Seasonal allergic rhinitis due to izcowe26 Immunizations ImmunizationAdministration DatesNext IwkSrqv0912/16/2011 Family History Medical HistoryRelationNameCommentsDiabetesFatherHeart failureFather HyperlipidemiaFatherStrokeFatherPulmonary embolismMotherHyperlipidemiaSibling RelationNameStatusCommentsFatherDeceasedMotherDeceasedSibling Social History Tobacco UseTypesPacks/DayYears UsedDateSmoking Tobacco: NeverSmokeless Tobacco: Never Tobacco Cessation:Counseling Given: Not Answered Alcohol UseStandard Drinks/WeekCommentsYes1 (1 standard drink = 0.6 oz pure alcohol)RarelyCommentsUnknownSex and Gender InformationValueDate RecordedSex Assigned at SbrmcTqombt26/28/2023 1:50 PM ESTLegal SexFemale 08/02/2022 6:44 PM EDTGender WptkhkoqZuhwqu64/28/2023 1:50 PM ESTSexual OrientationNot on file Last Filed Vital Signs Vital SignReadingTime TakenCommentsBlood Btlfeczf237/8006 3:27 PM EDT Ozjlc4605 10:06 AM LESAzmwvgpvtwh23.3 ??C (97.3 ??F)04/30/2023 12:54 PM ESTRespiratory Fxba964507/22/2018 10:06 AM ESTOxygen Saturation--Inhaled Oxygen Concentration--Prlvac268 kg (279 lb)10/23/2023 3:27 PM PBWOaquzu583.1 cm (5' 5 ) 10/23/2023 3:27 PM EDTBody Mass Index46.43010/23/2023 3:27 PM EDT Plan of Treatment Not on file Insurance [facility] Address: [facility] [id number] [place] [phone] Care Teams Team MemberRelationshipSpecialtyStart DateEnd Date Joe Barksdale MD [address] [place] [id number] PCP - GeneralFamely Medicine10/18/22
--- OUTSIDE RECORDS SUMMARY | 2025-03-24 19:24 | XMS_ITS | Encounter Summary ---
Author Organization [facility] Address [address] [place] [address] Care Team Providers Care Turret Lathe Set Up Operator Name Role Phone Jeff Jon MD Primary Care Provider [phone] Encounter Details DateTypeDepartmentCare Team (Latest Contact Info)Ulraysoxvsg06/21/2024Clinisync Result Encounter [facility] External Department Unsolicited Jennie Guillermo MD [address] [address] Social History Tobacco UseTypesPacks/DayYears UsedDateSmoking Tobacco: NeverSmokeless Tobacco: NeverAlcohol UseStandard Drinks/WeekCommentsYes1 (1 standard drink = 0.6 oz pure alcohol)RarelyCommentsUnknownSex and Gender InformationValueDate RecordedSex Assigned at OytisXrtjrt47/28/2023 1:50 PM ESTLegal SexFemale 08/02/2022 6:44 PM EDTGender RlcvmntmCocros18/28/2023 1:50 PM ESTSexual OrientationNot on filedocumented as of this encounter Plan of Treatment Not on file documented as of this encounter Procedures Procedure NamePriorityDate/TimeAssociated DiagnosisCommentsMRI HEAD/BRAIN WO/W CONTR10/09/2023 9:15 PM EDT documented in this encounter Results * MRI HEAD/BRAIN WO/W CONTR (10/09/2023 9:15 PM EDT)Anatomical RegionLaterality ModalityRadiographic ImagingSpecimen (Source)Anatomical Location / Laterality Collection Method / VolumeCollection TimeReceived Time10/09/2023 9:15 PM EDT Narrative 10/09/2023 9:18 PM EDT [facility] ?[address] ? [place] [address] ? Magnetic Resonance Report ? Signed ? Patient: WEST,CANELO L ? MR#: [id number] ?? : 1965 ?Acct:[id number] ?? Age/Sex: 58 / F ?ADM Date: 10/09/23 ?? Loc: MRI ? Attending Dr: Jennie Guillermo M.D. ? Ordering Physician: Jennie Guillermo M.D. ?? Date of Service: 10/09/23 ?? Procedure(s): MR head/brain wo/w con ?? Accession Number(s): [id number] ? cc: JEFF JON ; Jennie Guillermo M.D. ? [facility] ? [address] ? [place] [address] ? Patient Name: ?? CANELO L FULTON ? MRN: [facility]:[id number] ? date: 1965 ?Sex: F ?? Assigned Patient Location: MRI ?? Current Patient Location: MRI ?? Accession/Order Number: [id number] ?? Exam Date: 10/09/2023 ??12:50 ?Report Date: 10/09/2023 ??21:15 ? At the request of: ?? JENNIE ??APOLINAR ? Procedure: ??MR head/brain wo/w con ? MR head/brain wo/w con, 10/09/2023 12:50 PM EDT ? INDICATION: Asymmetric Sensorineural Hearing Loss H90.3 right ear tinnitus ? COMPARISON: Prior CT of the in temporal bone dated 09/04/2023 ? TECHNIQUE: Multiplanar, multisequential MRI images of brain were obtained ?? without and with injection of contrast. ? FINDINGS: ? The cerebral sulci as well as ventricular system are appropriate for age. ? There is no restricted diffusion. ? Few hyperintensities on T2 and FLAIR images in the soto radiata and centrum ?? semiovale with sparing of U fibers are nonspecific, statistically most likely ?? consistent with microvascular ischemic changes. ? There is no intracranial mass, mass effect, midline shift, intra or ?? extra-axial ?? fluid collection or large hemorrhage. No abnormality of the semicircular canal ? is or cochlea vestibular nerves is noted. No abnormal enhancing lesion is ?? noted. ? Normal flow-void in the intracranial vessels is noted. ?? Nonspecific fluid within the right mastoid air cells is noted. ?? The visualized portions of orbits, left mastoid air cells as well as paranasal ? sinuses are unremarkable. ? MR/MR head/brain wo/w con ?? IMPRESSION: ? No abnormality of the cochlea vestibular nerves or semicircular canals is ?? noted. Nonspecific fluid within the right mastoid air cells. ? Electronically authenticated by: RAMIREZ ??PARVA ?? Date: 10/09/2023 ??21:15 ? Dictated By: ?Jorge,Ramirez M.D. ? Signed By: ?10/09/232117 ? DD/ 2115 ? TD/TT: ? Manager Relocation: Procedure Note Radiology, Radiologist, - 10/09/2023 [place] [address] Magnetic Resonance Report Signed Patient: CANELO SINGH LMR#: [id number] : 1965Acct:[id number] Age/Sex: 58 / FADM Date: 10/09/23 Loc: MRI Attending Dr: Jennie Guillermo M.D. Ordering Physician: Jennie Guillermo M.D. Date of Service: 10/09/23 Procedure(s): MR head/brain wo/w con Accession Number(s): [id number] cc: JEFF JON ; Jennie Guillermo M.D. The [place] [id number] Patient Name: CANELO SINGH MRN: [id number] date: 1965 Sex: F Assigned Patient Location: MRI Current Patient Location: MRI Accession/Order Number: [id number] Exam Date: 10/09/2023 12:50 Report Date: 10/09/2023 21:15 At the request of: JENNIE GUILLERMO Procedure: MR head/brain wo/w con MR [...] Patel M.D. Signed By:10/09/232117 DD/ 14 TD/TT: Manager Relocation: Authorizing ProviderResult TypeResult StatusHilary Ulises Guillermo MDIMG XR PROCEDURES Final Result documented in this encounter Visit Diagnoses Not on filedocumented in this encounter Care Teams Team MemberRelationshipSpecialtyStart DateEnd Date Jeff Jon MD [address] [place] [address] PCP - GeneralFamily Medicine10/18/22documented as of this encounter
--- OUTSIDE RECORDS SUMMARY | 2025-03-24 19:25 | XMS_ITS | CCD ---
Author Organization [facility] Care Team Providers Care School Lunch Monitor Name Role Phone JEFF JON Primary Care Unavailable ELLE DODD Referring Unavailable Jeff Jon DO Primary Care Provider [phone] Carlos Terrazas Unavailable Jeff Jon Unavailable Vandana Jordan Unavailable Carl Valdivia Unavailable Lorena Rico Unavailable Jeff Jon DO Primary Care Provider [phone] JEFF JON Primary Care Unavailable LEENA SEYMOUR Attending Unavailable JEFF JON Primary Care Unavailable SKUGOR, ASAD Referring Unavailable JEFF JON Primary Care Unavailable ANILA JIMENEZ Attending Unavailable DANG, ASAD Attending Unavailable JEFF JON Referring Unavailable JEFF JON Primary Care Unavailable JEFF JON Primary Care Unavailable SKUGOR, ASAD Referring Unavailable SKSANTOS, ASAD Attending Unavailable JEFF JON Primary Care Unavailable SKUGOR, ASAD Referring Unavailable Lacie Manuel Unavailable DR JEFF JON Consulting Unavailable DONTRELL, DR AGUILAR Attending Unavailable [...] MARCELL Admitting Unavailable TROTTI, GIROLAMO Consulting Unavailable GIRVIN, DR AGUILAR Primary Care Unavailable DIAB ., [...] Primary Care Unavaila ble Gircassi, Dr. Jeff Coleman Attending Unavaila ble Dontrell, Dr. Jeff Coleman Referring Unavaila ble Dontrell, Dr. Jeff Coleman Attending Unavaila Jeff Lopez Primary Care Physician DO Casper Nguyen Admitting Unavailabl e Casper Nguyen Attending Unavailable Sharon Wong Referring Unavailable TIMMIREYAS, JENNIE H Attending Unavailable JEFF JON Referring Unavailable TIMMIS, JENNIE H Attending Unavailable TRACY, SHARON D Referring Unavailable HILLS, SHARON D Attending Unavailable SVETLANA SINGH Attending Unavailable TIMMIS, JENNIE H Attending Unavailable HILLS, SHARON D Referring Unavailable HILLS, SHARON D Attending Unavailable TIMMIS, JENNIE H Attending Unavailable DO Jeff Jon Primary Care Provider [phone] MD Logan Brown Attending Provider Jeff Jon DO Primary Care Unavailab le DeVaul OFFSET PRESS ASSISTANT-SPECIAL EVENTS DRIVER, Cass Zavaleta Attending Unav ailable Jeff Jon DO Primary Care Unavailab le DeVaul OFFSET PRESS ASSISTANT-SPECIAL EVENTS DRIVER, Cass Zavaleta Attending Unav ailable Jeff Jon DO Primary Care Unavailab le DeVaul OFFSET PRESS ASSISTANT-SPECIAL EVENTS DRIVER, Cass Zavaleta Attending Unav ailable Jeff Jon DO Primary Care Unavailab sanjeev George MD, Librado Kumar Attending Unavaila ble Jeff Jon DO Primary Care Provider Ly DO, Carol Rogers Attending Provider Jeff Jon DO Primary Care Provider [phone] Jeff Jon DO Attending Provider Lorena Rico APRN Attending Provider [phone] Jeff Jon Admitting Unavailable Jeff Jon Attending Unavailable Stephanie, Logan S Admitting Unavailable Stephanie, Logan S Attending Unavailable Jeff Jon Primary Care Unavailable Ly, Carol L Admitting Unavailable Ly, Carol L Attending Unavailable Jeff Jon Primary Care Unavailable Ly, Carol L Admitting Unavailable Ly, Carol L Attending Unavailable Jeff Jon Primary Care Unavailable Jeff Jon DO Primary Care Provider Jeff Jon DO Attending Provider Jacky OFFSET PRESS ASSISTANTLorena Lea Attending Provider [place] Admitting Unavailable ABNER, MARCIOAB Attending Unavailable NEO ESPINO Attending Unavailable MOUKANEO DESAI Attending Unavailable NEO ESPINO Attending Unavailable [place] Referring Unavailable Jeff Jon DO Primary Care Provider Jeff Jon DO Attending Provider Neo Espino MD, V Attending Provider Jeff Jon DO Primary Care Provider Jeff Jon DO Attending Provider Jeff Jon DO Primary Care Provider Jeff Jon MD Primary Care Provider Allergies Allergy ClassificationReported Allergen(s)Allergy TypeDate of OnsetReaction(s) FacilityMacrolides (antibiotic) (1 source)ClarithromycinDrug Pbqeujb86-95-1739vypazlelWcbkccfar Regional Medical CenterQuinolones (antibiotic) (2 sources)levoFLOXacinDrug Lcwjanj29-61-0813Juogcjzaa Pain, itches/pain, Abdominal PainSelect [facility] (6 sources)Cefuroxime; Translations: [CEFUROXIME AXETIL]Drug Fpapoyh93-18-2453 [facility]Av[facility] (20 sources)Clarithromycin; Translations: [CLARITHROMYCIN]Drug Itdzimf48-79-0314 [facility]chingAv[facility] (15 sources)Fluconazole; Translations: [FLUCONAZOLE]Drug Mziyunj05-10-5243 [facility]chUniversity [facility] (20 sources)gatifloxacin; Translations: [GATIFLOXACIN]Drug Pmqotno19-80-8070 ItchingAv[facility] (20 sources)levoFLOXacin; Translations: [LEVOFLOXACIN]Drug Bynwfat97-22-5656 ItchUniversity [facility]als Health [facility] (17 sources)LORazepam; Translations: [LORAZEPAM]Drug Yaaijpn80-63-5806Woqhh: See CommentsAvita Health System [facility] (20 sources)metFORMIN; Translations: [METFORMIN]Drug Fpnuhnh95-51-7059Nrjvj: See [facility] (20 sources)FluconazoleDrug AllergyitchingForks Community Hospital proVITAL Other (20 sources)gatifloxacin; Translations: [Tequin]Drug Aduefhp42-93-3762NqnlnruTey [facility] (20 sources)levoFLOXacin; Translations: [Levaquin]Drug Fcplsaj86-51-8817 itches/painAv[facility] (20 sources)LORazepamDrug Allergymade wired /unable to [facility] proVITAL Other (3 sources)metFORMINDrug AllergyheadBethesda North [facility] proVITAL Other (2 sources)Clarithromycin; Translations: [Biaxin]Drug Slnooma87-75-6490Rwz [facility] Rep[facility] (1 source)PentamidineDrug AllergyAvita Health System [facility] Repository (2 sources)Percocet Tablets; Translations: [Percocet Tablets]Propensity to adverse reactions to drugnausea and vomitingDayton [facility] (2 sources)Vicodin Tablets; Translations: [Vicodin Tablets]Propensity to adverse reactions to drugnausea and vomitingDayton Children'S Hospital (1 source)ClarithromycinDrug Bkniege60-77-5805YbsugujjfSelect Medical [facility] Repository (1 source)gatifloxacinDrug Gxjonhg64-10-5911VnunvnoyrSelect Medical [facility] Repository (1 source)levoFLOXacinDrug Zztzinn68-58-4576DuuqwddgzSelect [facility] Repository (3 sources)Cefuroxime; Translations: [CEFUROXIME]Drug Qackgff05-67-8427Rwjinqa [facility] Repository (2 sources)ClarithromycinAllergy to -16-1251Smofhicf, ItchingNOMS Healthcare (2 sources)GatifloxacinAllergy to -76-8650HO intolerance, ItchingNOMS Healthcare (2 sources)LorazepamAllergy to dvmoeoxhw16-02-0312EjhpzghBRCX Healthcare Medications Current Medications MedicationDrug Class(es)DatesSig (Normalized)Sig (Original)Advair [...] Inhalation every 12 hrs for 90 days Activealbuterol 0.83 mg/ml inhalation solution (20 sources)beta2-Adrenergic AgonistStart: 03-19-2025 End: 48-43-4021hlqa 2.5 mg by inhalation four times daily as needed for wheezing Albuterol Sulfate 2.5 mg /3 mL (0.083 %) solution for nebulization Active 2.5 MG INHALATION Four times daily as needed for shortness of breath or wheezing 75 2 March 19, 2025 11:31am Complies with drug therapyStart: 03-26-2024 End: 29-21-2046Cavwltgro Sulfate 90 mcg/actuation HFA aerosol inhaler Active 2 INH INHALATION Every 6 hours as needed for shortness of breath or wheezing 8.5 1 March 19, 2025 11:31am Complies with drug therapyStart: 92-94-9848Lzwfsbtgv Sulfate (Proair Hfa) 90 mcg/actuation HFA aerosol inhaler Active INHALATION August 28, 2023 12:00am FreeTextSi inhalations Inhalation q4 hrs prn; Note: Source Status: Continueprn; Provider: Dontrell Aguilar CStart: 08-28-2023 End: 74-13-4612ajjh 3 mL by inhalation every six hours as neededAlbuterol Sulfate 2.5 mg /3 mL (0.083 %) solution for nebulization Discontinued 2.5 MG INHALATION Every 6 hours as needed for shortness of breath or wheezing August 28, 2023 12:00am March 19, 2025 11:31am 3 ml as needed Inhalation every 6 hrs; Note: Source Status: Continueprn; Provider: Jacky Mayestart: 08-28-2023 End: 53-62-1192Xybvnuxng Sulfate (Proair Hfa) 90 mcg/actuation HFA aerosol inhaler Discontinued INHALATION August 28, 2023 12:00am March 26, 2024 1:03pm FreeTextSi inhalations Inhalation q4 hrs prn; Note: Source Status: Continueprn; Provider: Dontrell Aguilar CStart: 82-61-8095Zpoxdcjmy Sulfate (2.5 MG/3ML) 0.083% 3 ml as needed Inhalation every 6 hrs prn Nov, Active Start: 76-00-4391Bipimujpf Sulfate (2.5 MG/3ML) 0.083% 3 ml as needed Inhalation every 6 hrs prn Nov, ActiveStart: 19-49-4070bzlu 2 puff(s) by inhalation every four hours as neededAlbuterol Sulfate HFA 108 (90 Base) MCG/ACT 2 puffs as needed Inhalation every 4 hrs for 30 day(s) Aug, Active Start: 34-89-6776MqrOev HFA 108 (90 Base) MCG/ACT 2 inhalations Inhalation q4 hrs prn prn Oct, Activeamitriptyline hydrochloride 25 mg oral tablet (1 source)Tricyclic AntidepressantStart: 05-10-2023 End: 47-03-3349wpgo 1 tablet by mouth once daily at bedtimeamitriptyline 25 mg Tab 25 mg = 1 tab(s), Oral, Once a day (at bedtime), X 30 day(s), # 30 tab(s), R efills(s) 2, Pharmacy: [facility]/pharmacy #[id number], 166, cm, 05/10/23 14:36:00 EST, Height/Length Dosing, 123.7, kg, 05/10/23 14:36:00 EST, Weight Dosing Start Date: 05/10/23 Stop Date: 08/08/23 Status: OrderedamLODIPine 5 mg oral tablet (1 source)Dihydropyridine Calcium Channel BlockerStart: 89-99-0646cpcn 1 tablet by mouth every twenty-four hoursamLODIPine Besylate 5 MG 1 tablet Orally Once a day for 30 days Jun, Activeatorvastatin 40 mg oral tablet (13 sources)HMG-CoA Reductase InhibitorStart: 48-09-9121acdh 1 tablet by mouth once dailyAtorvastatin 40 mg tablet Active 40 MG PO Daily February 24, 2025 12:00am Complies with drug therapyStart: 09-01-2024 End: 00-48-8299avcr 1 tablet by mouth once dailyAtorvastatin 20 mg tablet Discontinued 20 MG PO Daily September 01, 2024 12:00am November 27, 2024 11:42am azithromycin 500 mg oral tablet (1 source)Macrolide AntimicrobialStart: 26-09-5444ihxp 1 tablet by mouth once dailyAzithromycin (Zithromax) 500 mg tablet Active 500 MG PO Daily 5 5 0 March 19, 2025 12:00am Complies with drug therapybetamethasone 0.5 mg/ml / clotrimazole 10 mg/ml topical cream (20 sources)Azole Antifungal, CorticosteroidStart: 04-10-2019 End: 50-21-8898Iutprkaqnmgj-Betamethasone 1-0.05 % cream Active 1 APPLIC TOPICAL Twice daily as needed for as directed July 16, 2024 11:35am FreeTextSi application Externally Twice a day; Note: Source Status: Takingprn; Refills: 3; Qty: 135 gm; Provider: Dontrell Reeder Complies with drug therapyCentrum (1 source)Start: 53-46-1777Itqirwt Oral, Daily, Refill(s) 0 Start Date: 02/22/11 Status: Orderedcholecalciferol 0.05 mg oral tablet (20 sources)Vitamin DStart: 08-28-2023 End: 70-92-5684qklm 1 tablet by mouth once dailyCholecalciferol (Vitamin D3) 50 mcg (2,000 unit) tablet Active 2000 UNIT PO Daily August 28, 2023 10:48am FreeTextSi tablet Orally Once a day; Note: Source Status: Taking; Provider: Dontrell Reeder Complies with drug therapyStart: 72-38-6826hqrg 1 tablet by mouth every twenty-four hoursVitamin D3 50 MCG (2000 UT) 1 tablet Orally Once a day Feb, ActiveStart: 25-20-5472Nkcxjtg D3 125 MCG (5000 UT) as directed Orally once weekly Mar, ActiveStart: 67-94-0150ljkg 25 ug by mouth once dailyVitamin D 25 MCG (1000 UT) 5000 units Orally Once a day Dec, Active Start: 25-64-3679xjdfrsdotejur 10 mg oral tablet (3 sources)Sodium-Glucose Cotransporter 2 InhibitorStart: 90-61-3855pkii 1 tablet by mouth once dailyDapagliflozin Propanediol (Farxiga) 10 mg tablet Active 10 MG PO Daily February 24, 2025 12:00am Complies with drug yrzcozw35 hr dilTIAZem hydrochloride 240 mg extended release oral capsule (20 sources)Calcium Channel BlockerStart: 74-32-7227pwsr 1 mg by mouth every twenty-four hoursDiltiazem Hcl (Cartia Xt) 240 mg capsule,extended release 24hr Active MG PO February 24, 2025 12:00am Complies with drug therapyStart: 09-08-2024 End: 92-42-4133gqbq 1 capsule by mouth once dailyDiltiazem Hcl 240 mg capsule,extended release 24hr Discontinued 240 MG PO Daily September 08, 2024 10: 07am November 27, 2024 11:43amStart: 09-01-2024 End: 25-58-2237nazl 1 capsule by mouth every twenty-four hoursDiltiazem Hcl 240 mg capsule,extended release 24hr Discontinued MG PO September 01, 2024 12:00am September 08, 2024 10:07amStart: 09-01-2024 End: 61-70-0146adoc 1 capsule by mouth every twenty-four hoursDiltiazem Hcl 240 mg capsule,extended release 24hr Discontinued MG PO September 01, 2024 12:00am September 08, 2024 10:07amdoxycycline hyclate 100 mg oral capsule (4 sources)Tetracycline-class Drugtake 1 capsule by mouth every twelve hours Doxycycline Hyclate 100 MG 1 capsule Orally every 12 hrs for 10 day(s) Active estrogens, conjugated (fpc) 0.45 mg oral tablet (1 source)EstrogenStart: 00-35-8409bmsq 1 tablet by mouth once dailyPremarin 0.45 mg Tab 0.45 mg = 1 tab(s), Oral, Daily, tab(s), Refills(s) 0 Start Date: 02/22/11 Status: Orderedfluticasone propionate 0.05 mg/actuat metered dose nasal spray (20 sources)CorticosteroidStart: 85-72-3461zsyl 2 spray(s) nasal route in the morningfluticasone (Flonase) 50 MCG/ACT nasal spray Administer 2 sprays into each nostril in the morning. 08/14/2022 ActiveStart: 11-06-3390kazq 1 spray(s) nasal route once dailyFluticasone Propionate 50 MCG/ACT 1 spray in each nostril Nasally Once a day Apr, ActiveStart: 94-83-2616fcew 1 spray(s) nasal route once dailyFluticasone Propionate 50 MCG/ACT 1 spray in each nostril Nasally Once a day Apr, ActiveStart: 28-81-1898Szpypelouem Propion-Salmeterol (20 sources)Corticosteroid, beta2-Adrenergic AgonistStart: 13-39-8343Zfqmgjfrbyy Propion-Salmeterol (Advair Diskus) 250-50 mcg/dose blister with device Active 1 INH INHALATION Q12H 3 90 3 December 18, 2024 8:30am Complies with drug therapy Start: 96-29-3052Tddxxulpbdu Propion-Salmeterol (Advair Diskus) 250-50 mcg/dose blister with device Active 1 INH INHALATION Q12H 3 90 December 18, 2024 8:30am Complies with drug therapyStart: 10-29-2023 End: 62-58-8119Bkkaevilzgb Propion-Salmeterol (Advair Diskus) 250-50 mcg/dose blister with device Discontinued 1 INH INHALATION Q12H 3 90 3 October 29, 2023 1:18pm December 18, 2024 8:30amStart: 10-29-2023 End: 21-00-3474Citruefuxwx Propion-Salmeterol (Advair Diskus) 250-50 mcg/dose blister with device Discontinued 1 INH INHALATION Q12H 3 October 29, 2023 1:18pm December 18, 2024 8:30amStart: 02-71-8939Ifqsfvsxgbj Propion-Salmeterol (Advair Diskus) 250-50 mcg/dose blister with device Active 1 INH INHALATION Q12H October 29, 2023 1:18pm Complies with drug therapyStart: 96-70-7803Ziczz: 42-57-9507Ogomqfqytrc Propion-Salmeterol (Advair Diskus) 250-50 mcg/dose blister with device Active 1 INH INHALATION Q12H October 29, 2023 12:18pmStart: 97-83-5012Woglrzznvhx Propion-Salmeterol (Advair Diskus) 250-50 mcg/dose blister with device Active 1 INH INHALATION Q12H October 29, 2023 1:18pmStart: 09-14-2017 End: 92-56-4472Urphanrclgx Propion-Salmeterol (Advair Diskus) 250-50 mcg/dose Blister With Device Discontinued 1 INH INHALATION Q12H September 13, 2017 11:00pm October 29, 2023 12:20pmStart: 09-14-2017 End: 76-51-4897Iwcroytfzik Propion-Salmeterol (Advair Diskus) 250-50 mcg/dose Blister With Device Discontinued 1 INH INHALATION Q12H September 14, 2017 12:00am October 29, 2023 1:20pmStart: 48-13-6198Xgjifijmmzn Propion-Salmeterol (Advair Diskus) 250-50 mcg/dose Blister With Device Active 1 INH INHALATION Q12H September 14, 2017 12:00amStart: 61-50-2656txox 1 puff(s) by inhalation twice daily Advair 250 mcg-50 mcg Powder 1 puff(s), Inhalation, BID, EA, Refill(s) 0 Start Date: 02/22/11 Status: OrderedStart: 94-09-3330jvlhobxjidu/salmeterol(ADVAIR DISKUS 250 MCG-50 MCG/DOSE FOR INHALATION) Indications: Myalgia and myositis, unspecified Take one(1) inhalation twice daily; rinse and gargle mouth with water after each use. 0 05/16/2007 Activetake 1 puff(s) by inhalation twice daily in the morningFluticasone-Salmeterol (Advair Diskus) 250-50 MCG/ACT aerosol powder inhale 1 puff by inhalation route 2 times every day in the morning and evening approximately 12 hours apart Inhalation Activetake 1 puff(s) by inhalation every twelve hoursAdvair Diskus 250-50 MCG/ACT 1 puff Inhalation every 12 hrs ActiveComment on above:Take one(1) inhalation twice daily; rinse and gargle mouth with water after each use.furosemide 40 mg oral tablet (3 sources)Loop DiureticStart: 48-22-2818npsd 1 tablet by mouth once daily Furosemide 40 mg tablet Active 40 MG PO Daily February 24, 2025 12:00am Complies with drug therapylevothyroxine sodium 0.175 mg oral tablet (20 sources)l-ThyroxineStart: 15-87-0365omnw 1 tablet by mouth once daily in the morningLevothyroxine 175 mcg tablet Active 175 MCG PO Daily 90 0 March 02, 2025 12:00am take first thing in the morning on an empty stomach, do not eat or drink for 45 minutes after taking Complies withdrug therapyStart: 11-27-2024 End: 29-13-4349opwk 1 tablet by mouth once daily in the morningLevothyroxine 200 mcg tablet Discontinued 200 MCG PO Daily 90 90 November 27, 2024 12:00am March 02, 2025 12:14pm take first thing in the morning on an empty stomach, do not eat or drink for 45 min after takingStart: 08-18-2024 End: 97-61-0037hkxm 2 tablets by mouth once daily in the morningLevothyroxine 100 mcg tablet Discontinued 200 MCG PO Daily 180 3 August 18, 2024 12:00am November 27, 2024 12:21pm take first thing in the morning on an empty stomach, do not eat or drink for 30-45 min after takingStart: 08-18-2024 End: 07-81-7415Yigmqvdexjlft (Synthroid) 25 mcg tablet Discontinued 25 MCG PO Daily 90 0 August 18, 2024 12:00am September 08, 2024 10:58am take first thing in the morning on an empty stomach, do not eat or drink anything for 30-45 min after taking. Take in addition to 200 MCG (2- 100 MCG tablets) daily for a total of 225 MCG dailyStart: 08-28-2023 End: 97-07-5980bxfj 1 tablet by mouth once daily in the morningLevothyroxine (Synthroid) 200 mcg tablet Discontinued 200 MCG PO Daily 90 1 August 28, 2023 11:47amApril 2023 12:49pm take on an empty stomach first thing in the morning do not eat or drink for 30-45 min after takingStart: 67-72-6703Rqetnezqy 200 mcg (0.2 mg) Tab Refills(s) 0 Start Date: 05/10/23 Status: OrderedStart: 26-66-0003mqcclvfnvroec (SYNTHROID) 200 mcg tablet Take one tablet daily. 90 tablet 1 10/13/2021 ActiveStart: 07-22-2021 End: 14-39-7036lqnc 2 tablets by mouth once dailylevothyroxine (SYNTHROID) 112 mcg tablet Take 2 tablets by mouth once daily. 180 tablet 3 07/22/2021 10/13/2021 Discontinued (Course of therapy completed)Start: 68-28-4548ntal 1 tablet by mouth in the morningSynthroid 175 MCG 1 tablet in the morning on an empty stomach Orally alternating with 200 MCG for 90 days PT REQUESTING MYLAN BRAND Oct, ActiveStart: 09-14-2017 End: 13-61-8527bggs 1 tablet by mouth once dailyLevothyroxine (Synthroid) 175 mcg Tablet Discontinued 175 MCG PO Daily September 14, 2017 12:00am August 28, 2023 11:40amtake 1 tablet by mouth in the morningLevothyroxine Sodium 200 MCG 1 tablet on an empty stomach in the morning Orally PT REQUESTING MYLAN BRAND ActiveComment on above:Take 2 tablets by mouth once daily.Take one tablet daily. liothyronine sodium 0.025 mg oral tablet (1 source)l-Triiodothyroninetake 1 tablet by mouth once dailyliothyronine (Cytomel) 25 MCG tablet Take 25 mcg by mouth Daily Activemometasone furoate 0.05 mg/actuat metered dose nasal spray (20 sources)CorticosteroidStart: 25-42-6876Kdrjf: 97-74-1440Iqzggw 0.1 % 1 application Externally Once a day for 90 days prn Mar, ActiveStart: 79-77-1701Mddmvittal (Elocon) 0.1 % Cream Active 1 APPLIC TOPICAL Daily as needed for Rash September 14, 2017 12:00am Complies with drug therapyStart: 09-14-2017 End: 63-87-9079Bcesmbwqfk (Nasonex) 50 mcg/actuation spray,non-aerosol Active 2 SPRAY INTRANASAL Daily as needed for allergic symptoms July 16, 2024 11:35am Complies with drug therapyStart: 14-42-2668Ztfajfh Nasal, Daily, Refill(s) 0 Start Date: 02/22/11 Status: OrderedStart: 93-06-4002kpjrodspmy furoate(NASONEX 50 MCG/ACTUATION SPRAY) [place] twice in each nostril once daily. 0 06/26/2008 Activemometasone (Elocon) 0.1 % cream Elocon ActiveComment on above:[place] twice in each nostril once daily.ProAir HFA 108 (90 Base) MCG/ACT (20 sources)Start: 83-05-2849CmdKqb HFA 108 (90 Base) MCG/ACT 2 inhalations Inhalation q4 hrs prn prn Oct, Activespironolactone 25 mg oral tablet (3 sources)Aldosterone AntagonistStart: 31-51-1847iqgi 0.5 tablet by mouth in the morningSpironolactone 25 mg tablet Active 25 MG PO .COMPLEX February 24, 2025 12:00am 25 mg orally TAKE 1/2 TABLET BY MOUTH IN THE MORNING; Complies with drug therapytraMADol hydrochloride 50 mg oral tablet (6 sources)Opioid AgonistStart: 02-24-2025 End: 62-12-6674gcpk 1 tablet by mouth twice daily as needed for painTramadol 50 mg tablet Active 50 MG PO Twice daily as needed for pain 60 30 0 March 02, 2025 12:22pm Chronic pain Other chronic pain Complies with drug therapyStart: 17-95-7404uyaefrcv Refills(s) 0 Start Date: 05/10/23 Status: OrderedvalACYclovir 1000 mg oral tablet (10 sources)Herpesvirus Nucleoside Analog DNA Polymerase Inhibitor, Herpes Simplex Virus Nucleoside Analog DNA Polymerase Inhibitor, Herpes Zoster Virus Nucleoside Analog DNA Polymerase InhibitorStart: 22-33-4983geeo 1 tablet by mouth every eight hoursValtrex 1 GM 1 tablet Orally tid for 7 days Apr, ActiveVitamin D (1 source)Start: 60-01-1614Gnihcon D Refills(s) 0 Start Date: 05/10/23 Status: OrderedVitamin D 25 MCG (1000 UT) (13 sources)Start: 86-73-6866jypl 25 ug by mouth once dailyVitamin D 25 MCG (1000 UT) 5000 units Orally Once a day Dec, Active Completed/Discontinued Medications MedicationDrug Class(es)DatesSig (Normalized)Sig (Original)amoxicillin 875 mg / clavulanate 125 mg oral tablet (20 sources)Penicillin-class AntibacterialStart: 03-05-2025 End: 49-54-3858khny 1 tablet by mouth twice daily at mealtimeAmoxicillin-Pot Clavulanate 875-125 mg tablet Discontinued 1 TAB PO Twice daily 20 March 05, 2025 12:00am March 19, 2025 11:10am with foodStart: 10-24-2024 End: 75-44-6690gfbi 1 tablet by mouth twice daily at mealtimeAmoxicillin-Pot Clavulanate 875-125 mg tablet Discontinued 1 TAB PO Twice daily October 24, 2024 12:00am November 27, 2024 11:42am with foodStart: 01-08-2024 End: 60-06-5580osxv 1 tablet by mouth twice daily at mealtimeAmoxicillin-Pot Clavulanate 875-125 mg tablet Discontinued 1 TAB PO Twice daily January 08, 2024 12:00am March 26, 2024 12:37pm with foodStart: 02-86-3781tmqd 1 tablet by mouth every twelve hoursAmoxicillin-Pot Clavulanate 875-125 MG 1 tablet Orally every 12 hrs for 10 day(s) Oct, ActiveStart: 11-14-2022 take 1 tablet by mouth twice daily at mealtimeAmoxicillin-Pot Clavulanate 875- 125 MG 1 tablet Orally bid with food Mar, ActiveStart: 50-30-6430abof 1 tablet by mouth twice daily at mealtimeAmoxicillin-Pot Clavulanate 875-125 MG 1 tablet Orally two times a day with food for 10 day(s) Oct, ActiveStart: 16-88-3439nook 1 tablet by mouth twice daily at mealtimeAmoxicillin-Pot Clavulanate 875-125 MG 1 tablet Orally bid with food for 10 day(s) Jul, Activeaspirin 81 mg chewable tablet (10 sources)Platelet Aggregation Inhibitor, Nonsteroidal Anti-inflammatory Drug Start: 09-01-2024 End: 37-39-1182ydke 1 tablet by mouth once dailyAspirin 81 mg tablet,chewable Discontinued 1 TAB PO Daily September 01, 2024 12:00am November 27, 2024 11:42am cefTRIAXone (20 sources)Cephalosporin AntibacterialStart: 44-97-4646Olkrvibn 500 mg Aug, 1 gcetirizine hydrochloride 10 mg oral tablet (20 sources)Histamine-1 Receptor AntagonistStart: 05-16-2007 End: 50-60-3616iwrv 1 tablet by mouth once dailyCetirizine (Zyrtec) [...] 10 mg oral tablet (20 sources)Muscle RelaxantStart: 01-30-2018 End: 78-90-2704ujsd 1 tablet by mouth once daily at bedtimeCyclobenzaprine 10 mg tablet Discontinued 10 MG PO Daily at bedtime 5 0 December 16, 2024 9:14am Octob er 2024 11:44am TAKE 1 TABLET AT BEDTIMEStart: 87-30-3769Ydaze: 09-14-2017 End: 60-18-7327oxnt 1 tablet by mouth three times daily as needed for muscle spasmsCyclobenzaprine 10 mg Tablet Discontinued 10 MG PO Three times daily as needed for Muscle Spasm September 14, 2017 12:00am September 16, 2017 1:16pm empagliflozin 10 mg oral tablet (5 sources)Sodium-Glucose Cotransporter 2 InhibitorStart: 11-27-2024 End: 43-02-0660qdlk 1 tablet by mouth once daily in the morningEmpagliflozin (Jardiance) 10 mg tablet Discontinued 10 MG PO Every morning 3 November 27, 2024 12:00am February 24, 2025 11:08amesomeprazole 40 mg delayed release oral capsule (20 sources)Proton Pump InhibitorStart: 06-26-2008 End: 58-48-8749isub 1 capsule by mouth once dailyEsomeprazole Magnesium (Nexium) 40 mg Capsule,Delayed Release(Dr/Ec) Discontinued 40 MG PO Daily September 14, 2017 12:00am April 22, 2024 9:16amComment on above:Take one(1) capsule daily.84 hr estradiol 0.86209 mg/hr transdermal system (20 sources)EstrogenStart: 09-14-2017 End: 04-98-5181Roipyucbb (Vivelle-Dot) 0.0375 mg/24 hr Patch Semiweekly Discontinued 1 PATCH TRANSDERML Once 2017 12:00am August 28, 2023 11:12amglimepiride 1 mg oral tablet (20 sources)SulfonylureaStart: 02-22-2023 End: 63-39-8677Hmiehzbhyfr 1 mg tablet Discontinued 1 MG PO Daily August 28, 2023 10:09am August 28, 2023 11:12am 1 tablet with breakfast or the first main meal of the day Orally Once a day; Note: Source Status: Start; Refills: 1; Qty: 90 Tablet; Provider: Dontrell Aguilar ( )hydroCHLOROthiazide 25 mg / triamterene 37.5 mg oral capsule (20 sources)Potassium-sparing Diuretic, Thiazide DiureticStart: 09-26-2023 End: 41-16-4872tuer 1 capsule by mouth once daily in the morningTriamterene- Hydrochlorothiazid 37.5-25 mg capsule Discontinued 1 CAP PO Every morning 30 0 September 12:00am April 11, 2024 1:05pmStart: 79-53-1790oqex 1 capsule by mouth in the morningtriamterene-hydroCHLOROthiazide (Dyazide) 37.5-25 MG capsule Indications: Asymmetric SNHL (sensorineural hearing loss) Take 1 capsule by mouth in the morning. 30 capsule 1 09/24/2023 Activehydrocortisone 10 mg/ml / neomycin 3.5 mg/ml / polymyxin b 57863 unt/ml otic solution (12 sources)Aminoglycoside Antibacterial, Polymyxin-class Antibacterial, CorticosteroidStart: 17-15-9720Bgzjibek-Polymyxin-HC 3.5-02920-6 4 drops into affected ear Otic Three times a day for 7 days Jul, Not-TakingKetorolac (20 sources)Nonsteroidal Anti-inflammatory Drug, Cyclooxygenase InhibitorStart: 46-38-3801Iqcvkqg per 15 mg Jul, 2 cclisinopril 10 mg oral tablet (20 sources)Angiotensin Converting Enzyme InhibitorStart: 09-16-2017 End: 93-63-0304jewp 1 tablet by mouth once dailyLisinopril 10 mg tablet Discontinued 10 MG PO Daily 30 0 September 16, 2017 12:00am August 28, 2023 11 :13amlosartan potassium 50 mg oral tablet (20 sources)Angiotensin 2 Receptor BlockerStart: 11-27-2024 End: 71-18-1539ctiq 1 tablet by mouth once dailyLosartan 50 mg tablet Discontinued 50 MG PO Daily 90 November 27, 2024 12:14pm February 24, 2025 11: 08amStart: 12-05-2023 End: 43-03-7922lxdy 1 tablet by mouth once dailyLosartan 50 mg tablet Discontinued 50 MG PO Daily 90 April 22, 2024 9:14am September 08, 2024 10 :07amStart: 17-89-8175fyewhyyi Refills(s) 0 Start Date: 05/10/23 Status: Ordered Start: 02-22-2023 End: 92-09-6127odin 1 tablet by mouth once dailyLosartan 50 mg tablet Discontinued 50 MG PO Daily August 28, 2023 12:00am August 28, 2023 11:13am Fr eeTextSi tablet Orally Once a day; Note: Source Status: Taking; Refills: 3; Qty: 90 Tablet; Provider: Kg Queentart: 53-78-0486idyl 1 tablet by mouth every twenty-four hoursLosartan Potassium 25 MG 1 tablet Orally Once a day for 30 days Oct, Activemeloxicam 15 mg oral tablet (20 sources)Nonsteroidal Anti-inflammatory DrugStart: 02-24-2025 End: 72-24-1126bxoi 1 tablet by mouth once dailyMeloxicam 15 mg tablet Discontinued 15 MG PO Daily February 24, 2025 11:18am February 24, 2025 11:32am Start: 01-26-2025 End: 12-26-7897qjyi 1 tablet by mouth once dailyMeloxicam 15 mg tablet Discontinued 0 .ROUTE .COMPLEX 90 January 26, 2025 8:53am February 24, 2025 11:19am TAKE 1 TABLET BY MOUTH DAILYStart: 06-13-2024 End: 55-41-7371uood 1 tablet by mouth once dailyMeloxicam 15 mg tablet Discontinued 15 MG PO Daily June 13, 2024 1:22pm January 26, 2025 8:54am Start: 01-14-2024 End: 75-11-8173Wosnmekgj 15 mg tablet Discontinued 0 .ROUTE .COMPLEX 90 3 January 14, 2024 10:16am June 13, 2024 1:23pm TAKE 1 TABLET DAILYStart: 01-14-2024 End: 47-01-1773Iipdixjsv 15 mg tablet Discontinued 0 .ROUTE .COMPLEX 90 January 14, 2024 10:16am June 13, 2024 1:23pm TAKE 1 TABLET DAILYStart: 01-14-2024 End: 79-76-6972Oydpmgjfl 15 mg tablet Discontinued 0 .ROUTE .COMPLEX 90 January 14, 2024 9:16am June 13, 2024 12:23pm TAKE 1 TABLET DAILYStart: 47-49-3072Largkearz 15 mg tablet Active 0 .ROUTE .COMPLEX 90 January 14, 2024 9:16am TAKE 1 TABLET DAILYStart: 10-16-0516Tsupcysju Active 0 .ROUTE .COMPLEX 90 January 14, 2024 9:16am TAKE 1 TABLET DAILYStart: 42-53-3825Ncilrjvpc Active 0 .ROUTE .COMPLEX 90 January 14, 2024 10:16am TAKE 1 TABLET DAILYStart: 07-01-2021 End: 70-21-4923kqis 1 tablet by mouth once dailyMeloxicam 15 mg tablet Discontinued 15 MG PO Daily August 28, 2023 12:00am January 14, 2024 10:17am TAKE 1 TABLET DAILY; Refills: 0; Provider: Dontrell Aguilar C24 hr metFORMIN hydrochloride 500 mg extended release oral tablet (20 sources)BiguanideStart: 06-13-2024 End: 73-56-5516Zkgrmsbtu 500 mg tablet extended release 24 hr Discontinued 1000 MG PO .[facility] June 13, 2024 1:22pm February 24, 2025 11:09am 1,000 mg orally BID as normal;Start: 01-14-2024 End: 16-67-7963Kvooziyhk 500 mg tablet extended release 24 hr Discontinued 0 .R[address] [id number] April 22, 2024 9:13am June 13, 2024 1:23pm TAKE 2 TABLETS TWICE A DAY WITH MEALSStart: 01-14-2024 End: 55-62-2118Gxgddttqo 500 mg tablet extended release 24 hr Discontinued 0 [address] [address] January 130:41am April 22, 2024 9:14am TAKE 2 TABLETS TWICE A DAY WITH MEALSStart: 01-14-2024 End: 52-71-3158Dvnksmmmi 500 mg tablet extended release 24 hr Discontinued 0 [address] [address] January 1349:41am April 22, 2024 8:14am TAKE 2 TABLETS TWICE A DAY WITH MEALSStart: 44-12-0068Libbrejdg Active 0 .[address] [address] January 14, 2024 9:41am TAKE 2 TABLETS TWICE A DAY WITH MEALS Start: 59-81-4273Vekuezbme Active 0 .[address] [address] January 14, 2024 10:41am TAKE 2 TABLETS TWICE A DAY WITH MEALSStart: 01-14-2024 End: 62-93-9611sxvi 2 tablets by mouth twice daily at mealtimeMetformin 500 mg tablet extended release 24 hr Discontinued 500 MG PO .[facility] January 14, 2024 10:36am January 14, 2024 10:42am 500 mg orally take 2 (500 mg) tabs twice a day with meals;Start: 10-29-2023 End: 57-92-0931ubbd 1 tablet by mouth once dailyMetformin 500 mg tablet extended release 24 hr Discontinued 500 MG PO Daily October 29, 2023 2:48pm January 14, 2024 10:37amStart: 42-37-8806rjdvutjtr Refills(s) 0 Start Date: 05/10/23 Status: OrderedStart: 95-79-8089gyhf 2 tablets by mouth twice daily at mealtime metFORMIN HCl ER 500 MG 2 tablets Orally bid with meals for 90 days Oct, ActiveStart: 26-65-4917doxi 2 tablets by mouth twice dailymetFORMIN ER (GLUCOPHAGE XR) 500 mg 24 hr tablet Take 2 tablets by mouth twice daily. 360 tablet 3 07/22/2021 ActiveStart: 72-07-5209cvtXHLAAP HCl 500 MG 1 tablet with largest meal of the day Orally Once a day Oct, ActiveStart: 09-14-2017 End: 09-53-5737Gjwupibza 500 mg Tablet Extended Release 24 Hr Discontinued 500 MG PO Every 48 hours September 14, 2017 12:00am October 29, 2023 2:48pmComment on above:Take 2 tablets by mouth twice daily.montelukast 10 mg oral tablet (20 sources)Leukotriene Receptor AntagonistStart: 02-22-2011 End: 17-02-7489mpva 1 tablet by mouth once daily at bedtimeMontelukast (Singulair) 10 mg Tablet Discontinued 10 MG PO Daily at bedtime September 14, 2017 12:00am April 22, 2024 9:15amComment on above:Take 10 mg by mouth daily at bedtime.Ssjoonap-Nmr-Zpjekps Gluconate (Centrum) 9 mg iron/15 mL Liquid (20 sources)Start: 09-14-2017 End: 80-71-2055ybes 2 tablets by mouth once vhqznXsuvidip-Vqi-Tzlzwdl Gluconate (Centrum) 9 mg iron/15 mL Liquid Discontinued 2 TAB PO Daily September 13, 2017 11:00pm August 28, 2023 10:13amStart: 09-14-2017 End: 32-77-7776jjic 2 tablets by mouth once qgwlaOjlutrnp-Qdh-Bnymvih Gluconate (Centrum) 9 mg iron/15 mL Liquid Discontinued 2 TAB PO Daily September 14, 2017 12:00am August 28, 2023 11:13amMULTIVIT-MINERALS/FERROUS GLUC (CENTRAM-CARE ORAL) (5 sources)MULTIVIT-MINERALS/FERROUS GLUC (CENTRAM-CARE ORAL) Take by mouth twice daily. 0 ActiveComment on above:Take by mouth twice daily.predniSONE 20 mg oral tablet (20 sources)Start: 09-01-2024 End: 24-45-2485auwv 3 tablets by mouth once daily, then take 2 tablets by mouth once daily, then take 1 tablet by mouth once daily, then take 0.5 tablet by mouth once daily at mealtimePrednisone 20 mg tablet Discontinued 0 PO .COMPLEX 20 13 0 October 24, 2024 12:00am November 27, 2024 11:44am 3 tabs a day x3 days then take 2 tabs a day x3 days then take 1 tab a day x3 then take 1/2 tablet a day x4 days with food or milk orally;Start: 05-16-2024 End: 16-36-2203ifbu 3 tablets by mouth once daily at mealtime, then take 2 tablets by mouth once daily, then take 1 tablet by mouth once daily at mealtime Prednisone 20 mg tablet Discontinued 0 PO .with food or milk 18 9 0 June 13, 2024 1:00am July 16, 2024 11:36am take 3 tablets a day x3 days, 2 tabs a day x3 days and then 1 tab a day x3 days orally WITH FOOD OR MILK;Start: 51-41-3778khfzasHWWT 10 MG 4 tablets daily x 3 days, 2 tablets daily x 3 days, 1.5 tablet daily x 7 days, 1 tablet daily x 7 days, 0.5 tablets daily x 7 days Orally Once a day for 27 days Aug, ActiveStart: 96-18-7072rejkppTWUW 10 MG 4 tabs x 7 days, 3 tabs x 7 days, 2 tabs x 7 days, 1 tab x 7 days then stop OrallyOnce a day for 28 days Nov, Not-TakingStart: 75-61-7762uzuqcnWMNR 20 MG take 3 tablets Orally x3 days, then 2 tabs x3 days then 1 tab a day x3 days then take 1/2 tablet x 4 days with food or milk for 13 days Oct, ActiveStart: 70-54-3724sjkjraIGDM 10 MG 4 tablets daily for 3 days, 2 tablets daily for 3 days, 1 tablet daily for 7 days Orally Once a day for 13 days Aug, ActiveStart: 40-98-0891gmdh 1 tablet by mouth every twenty-four hours predniSONE 10 MG 1 tablet Orally Once a day Feb, ActivepredniSONE 5 MG 1/2 tablet Orally weaning down as directed Kdqzls90 hr scopolamine 0.0139 mg/hr transdermal system (14 sources)AnticholinergicStart: 90-85-8014Tgjeygpxvac 1 MG/3DAYS 1 patch to skin behind the ear Transdermal change q72 hours Jun, Not-TakingTB Test (20 sources)Start: 94-10-7224SH Test Jan, 0.1 mL24 hr venlafaxine 37.5 mg extended release oral capsule (3 sources)Serotonin and Norepinephrine Reuptake InhibitorStart: 10-07-2021 venlafaxine ER (EFFEXOR XR) 37.5 mg 24 hr capsule take one a day, if tolerated after two weeks increase to two 60 capsule 3 10/07/2021 ActiveComment on above: take one a day, if tolerated after two weeks increase to twoVitamin D [place] ([employer]) (3 sources)Start: 03-30-2016 End: 31-06-7787xnin 1 capsule by mouth once daily at mealtimeVitamin D [place] ([employer]) Take 1 capsule by mouth daily with food. 0 03/30/2016 10/13/2021 Discontinued (Course of therapy completed)Start: 58-59-1171xqak 1 capsule by mouth once daily at mealtimeVitamin D [place] ([employer]) Take 1 capsule by mouth daily with food. 0 03/30/2016 ActiveComment on above: Take 1 capsule by mouth daily with food. Problems Active Problems Problem ClassificationProblemDateDocumented DateEpisodic/ChronicAbdominal pain (20 sources)Abdominal pain; Translations: [Unspecified abdominal pain]Onset: 03-15-2021 Resolved: 78-68-3573RkbdcyzkIkjmaas disorders (20 sources)Generalized anxiety disorder; Translations: [Generalized anxiety disorder]Onset: 34-48-0361CotmqtiRbxcbq (20 sources)Asthma; Translations: [Unspecified asthma, uncomplicated]Onset: 02-21-2021 Resolved: 51-97-3236LmmyvdvAkvmhkn obstructive pulmonary disease and bronchiectasis (8 sources)Pulmonary emphysema; Translations: [Emphysema, unspecified]12-08-2024 ChronicCongestive heart failure; nonhypertensive (10 sources)Chronic diastolic (congestive) heart failure; Translations: [Congestive heart failure]Onset: 93-53-9450IdiqkzuXesucjfc mellitus with complications (5 sources)Type 2 diabetes mellitus; Translations: [Type 2 diabetes mellitus with hyperglycemia]Onset: 82-46-5510QbehxhiOomajpzz mellitus without complication (20 sources)Type 2 diabetes mellitus without complication; Translations: [Type 2 diabetes mellitus without complications]Onset: 03-15-2021 Resolved: 06-87-6136HohwdphDhqhrpsh mellitus without complication (20 sources)Hyperglycemia; Translations: [Hyperglycemia, unspecified]Episodic Digestive congenital anomalies (20 sources)Disorder of tongue; 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]ChronicDisorders of lipid metabolism (20 sources)Hyperlipidemia; Translations: [Hyperlipidemia, unspecified]Onset: 07-04-2021 Resolved: 17-55-1405KcijpmjH Codes: Natural/environment (2 sources)Bitten by cat, initial encounterEpisodicEsophageal disorders (20 sources)Gastroesophageal reflux disease; Translations: [Gastro-esophageal reflux disease without esophagitis]Onset: 02-21-2021 Resolved: 94-68-9914MjoikvhPfldcdftt hypertension (20 sources)Hypertensive disorder; Translations: [Essential (primary) hypertension]Onset: 510506-07-7277AmorvqsPagbp of unknown origin (1 source)Fever, unspecifiedEpisodicGenitourinary symptoms and ill-defined conditions (4 sources)Nocturia; Translations: [NOCTURIA]Onset: 81-15-5748NbrrketaHodklgbw; including migraine (20 sources)Headache; Translations: [Headache]EpisodicHeadache; including migraine (4 sources)Headache; including migraine; Translations: [HEADACHE UNSPECIFIED] Onset: 66-50-0026Fhgqszk and fatigue (7 sources)Chronic fatigue syndrome; Translations: [Chronic fatigue, unspecified]Onset: 285657-49-7885CgpnyimOntacag and fatigue (20 sources)Other fatigue; Translations: [Fatigue]EpisodicMiscellaneous mental health disorders (7 sources)Binge eating disorder; Translations: [Binge eating disorder]Onset: 470323-50-3073HtczlxfWwlt disorders (20 sources)Depressive disorder; Translations: [Major depressive disorder, single episode, unspecified]Onset: 10-20-2021 Resolved: 77-61-0051DcxjohoOufhva and vomiting (20 sources)Nausea; Translations: [Nausea]EpisodicNoninfectious gastroenteritis (1 source)Noninfective gastroenteritis and colitis, unspecifiedEpisodic Nonspecific chest pain (2 sources)Other chest pain; Translations: [Other chest pain]Onset: 01-05-2025 EpisodicNutritional deficiencies (20 sources)Vitamin D deficiency; Translations: [Vitamin D deficiency, unspecified]Onset: 91-63-9475ZllhsxuCbnknbuxoqc deficiencies (1 source)Dietary selenium deficiency; Translations: [DIETARY SELENIUM DEFICIENCY]Onset: 77-25-4239XxwjmoerBtrqxritlylebu (3 sources)Osteoarthritis; Translations: [Unspecified osteoarthritis, unspecified site]Onset: 760886-50-3251CgvispnRqsvh aftercare (20 sources)Long-term current use of systemic steroid; Translations: [half-way (current) use of systemic steroids]EpisodicOther aftercare (9 sources)Other [place] [facility] (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; Translations: [Long-term (current) use of other medications]Onset: 03-15-2021 Resolved: 05-42-3612XehrikpcSllde aftercare (1 source)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; Translations: [RETIREMENT USE ORAL HYPOGLYCEMIC DX]Onset: 24-67-9169LahhnevxXyzro circulatory disease (20 sources)Elevated blood-pressure reading, without diagnosis of hypertension; Translations: [Elevated blood pressure reading without diagnosis of hypertension]Onset: 10-20-2021 Resolved: 22-47-9424HxpmuxuvWifad connective tissue disease (20 sources)Cramp; Translations: [Cramp and spasm]EpisodicOther connective tissue disease (1 source)Myalgia, unspecified siteEpisodicOther ear and sense organ disorders (7 sources)Sensorineural hearing loss, bilateral; Translations: [Sensorineural hearing loss, bilateral]Onset: 459859-57-5645HrhxugcYsbzx ear and sense organ disorders (20 sources)Asymmetrical sensorineural hearing loss; Translations: [Sensorineural hearing loss, bilateral]Onset: 854253-59-5725BnyglwfFyhvy ear and sense organ disorders (11 sources)Sensorineural hearing loss, bilateral; Translations: [Sensorineural hearing loss, asymmetrical]83-82-8520DzuytmrMlzru ear and sense organ disorders (2 sources)Mixed conductive AND sensorineural hearing loss; Translations: [Mixed conductive and sensorineural hearing loss, unilateral, right ear with restricted hearing on the contralateral side]Onset: 483245-04-8806Jlsbatf Other ear and sense organ disorders (1 source)Otalgia, right earEpisodicOther ear and sense organ disorders (1 source)Unspecified acute noninfective otitis externa, right earEpisodicOther ear and sense organ disorders (20 sources)Tinnitus; Translations: [Tinnitus, unspecified ear]09-26-2023 EpisodicComment on above:right sided tinnitusOther ear and sense organ disorders (5 sources)Tinnitus, unspecified ear; Translations: [Tinnitus, unspecified] 65-22-1541UdlmnxunAirpd gastrointestinal disorders (20 sources)Diarrhea; Translations: [Diarrhea, unspecified]94-48-5326Tnjhuvyo Other gastrointestinal disorders (12 sources)Burping; Translations: [Eructation]86-75-1332PltdaajxThoge gastrointestinal disorders (5 sources)Eructation; Translations: [Flatulence, eructation, and gas pain] 23-29-2536RblyhvriZhdxf liver diseases (20 sources)Steatosis of liver; Translations: [Fatty (change of) liver, not elsewhere classified]ChronicOther liver diseases (20 sources)Inflammatory disease of liver; Translations: [Inflammatory liver disease, unspecified]Onset: 953397-28-8897VbfdayyThmce lower respiratory disease (20 sources)Cough; Translations: [Cough]EpisodicOther lower respiratory disease (6 sources)Wheezing; Translations: [Wheezing]Onset: 10-20-2021 Resolved: 54-33-7218XnkntwtaUqszp lower respiratory disease (3 sources)Shortness of breath; Translations: [SHORTNESS OF BREATH]Onset: 61-55-9537NswhehkbUkbnz lower respiratory disease (12 sources)Wheezing; Translations: [Wheezing]34-06-4555BgklvytkCbhau lower respiratory disease (12 sources)Cough; Translations: [Acute cough]28-72-8210WlgnepmgAvjbe nervous system disorders (20 sources)Chronic pain; Translations: [Other chronic pain]26-82-8457Nlcxeea Other nervous system disorders (20 sources)Other chronic pain; Translations: [Other chronic pain]ChronicOther nervous system disorders (20 sources)Paresthesia of hand ; Translations: [Paresthesia of skin]Episodic Other nervous system disorders (20 sources)Disorder of taste; Translations: [Unspecified disturbances of smell and taste]EpisodicOther non-traumatic joint disorders (4 sources)Pain in unspecified joint; Translations: [Polyarthralgia M25.50] Onset: 03-15-2021 Resolved: 89-02-8480XuiokzqnJjfvd non-traumatic joint disorders (16 sources)Pain in unspecified hip; Translations: [Pain in joint, pelvic region and thigh]EpisodicOther non-traumatic joint disorders (20 sources)Pain in left shoulder; Translations: [Left shoulder pain]Episodic Other non-traumatic joint disorders (20 sources)Hip pain; Translations: [Pain in unspecified hip]94-03-0170Nzkffujf Other nutritional; endocrine; and metabolic disorders (20 sources)Body mass index 40+ - severely obese; Translations: [Body mass index (BMI) 50.0-59.9, adult]Onset: 803351-35-2190IkhdgonZrlxh nutritional; endocrine; and metabolic disorders (7 sources)Metabolic syndrome X; Translations: [Metabolic syndrome]Onset: 410615-39-7987TnotkaoVatjl nutritional; endocrine; and metabolic disorders (20 sources)Hypercalcemia; Translations: [Hypercalcemia]ChronicOther nutritional; endocrine; and metabolic disorders (20 sources)Obesity; Translations: [Obesity, unspecified]ChronicOther nutritional; endocrine; and metabolic disorders (2 sources)Abnormal weight lossOnset: 10-20-2021 Resolved: 77-39-9210OghpcladYvpba nutritional; endocrine; and metabolic disorders (2 sources)Abnormal weight gainEpisodicOther screening for suspected conditions (not mental disorders or infectious disease) (20 sources)CT of chest abnormal; Translations: [Abnormal findings on diagnostic imaging of other specified body structures]74-61-7513FizpzmfMwjrzyw on above:CT [facility] for suspected conditions (not mental disorders or infectious disease) (20 sources)Liver function tests abnormal; Translations: [Other specified abnormal findings of blood chemistry]Onset: 18-54-4308YvqnpyjfFxlus upper respiratory disease (20 sources)Seasonal allergy; Translations: [Other seasonal allergic rhinitis] Onset: 289566-61-3735OivdlwfXjcqx upper respiratory disease (13 sources)Other seasonal allergic rhinitis; Translations: [Allergic rhinitis, cause unspecified]Onset: 02-21-2021 Resolved: 86-78-9833EhdjaokJdyra upper respiratory disease (2 sources)Allergic rhinitis due to animal hair and dander; Translations: [Allergic rhinitis due to animal (cat) (dog) hair and dander]Onset: 10-04-2022 35-61-5539IxkvrgmBoond upper respiratory disease (1 source)Nasal congestion; Translations: [NASAL CONGESTION]Onset: 09-14-2022 EpisodicOther upper respiratory disease (4 sources)Nasal sinus problem; Translations: [Other specified disorders of nose and nasal sinuses]96-64-0657BnnwdeobSzdev upper respiratory infections (12 sources)Acute sinusitis, unspecified; Translations: [Acute sinusitis] EpisodicOtitis media and related conditions (20 sources)Dysfunction of eustachian tube; Translations: [Other specified disorders of Eustachian tube, unspecified ear]Onset: 09-74-7380DcsialqzAeonbxqz codes; unclassified (20 sources)Insomnia; Translations: [Insomnia, unspecified]EpisodicResidual codes; unclassified (2 sources)Pain, unspecified; Translations: [PAIN UNSPECIFIED]Onset: 08-23-2022 EpisodicResidual codes; unclassified (1 source)Acquired absence of other specified parts of digestive tract; Translations: [ACQ ABSENCE OTH PART DIGESTV TRACT]Onset: 47-35-0088Ldssrkxw Residual codes; unclassified (1 source)Acquired absence of both cervix and uterus; Translations: [ACQUIRED ABSENCE BOTH CERVIX AND UTERUS]Onset: 12-17-3772IygmptibXpbrhgjmlmk; intervertebral disc disorders; other back problems (20 sources)Inflammation of sacroiliac joint; Translations: [Sacroiliitis, not elsewhere classified]74-58-6837EmstryoPnbdcwgehwx; intervertebral disc disorders; other back problems (20 sources)Neck pain; Translations: [Cervicalgia]Onset: 10-20-2021 Resolved: 43-33-4764ZgdphavyXntlrzd disorders (20 sources)Acquired hypothyroidism; Translations: [Hypothyroidism, unspecified] Onset: 09-20-2015 Resolved: 48-24-9658QxrscfkUkdckfytuqve (4 sources)COUGH, UNSPECIFIED; Translations: [COUGH, UNSPECIFIED]Onset: 51-08-2034Ttfhjrgeishd (1 source)PERSONAL HISTORY OF COVID-19; Translations: [PERSONAL HISTORY OF COVID-19]Onset: 15-96-1869Wslfvvuwzlsf (1 source)CONTACT W/AND (SUSP) EXPOS COVID-19; Translations: [CONTACT W/AND (SUSP) EXPOS COVID-19]Onset: 08-21-2022 Past or Other Problems Problem ClassificationProblemDateDocumented DateEpisodic/ChronicCardiac dysrhythmias (20 sources)Palpitations; Translations: [Palpitations]Onset: 06-30-7166Ecsgaews Chronic obstructive pulmonary disease and bronchiectasis (1 source)Bronchitis, not specified as acute or chronic; Translations: [Bronchitis J40]Onset: 02-24-2021 Resolved: 48-13-2779HxzmlbrfDncgf aftercare (20 sources)Long-term current use of drug therapy; Translations: [Other [place] [facility] [place] (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]Onset: 985867-59-5547DkwazedeTmghb circulatory disease (20 sources)Elevated blood pressure; Translations: [Elevated blood-pressure reading, without diagnosis of hypertension]Onset: 273685-45-4386Dzmlljkq Other congenital anomalies (2 sources)Porokeratosis; Translations: [Other specified congenital malformations of skin]Onset: 10-04-2022 Resolved: 256893-75-7865XxgyidlOqxks connective tissue disease (20 sources)Fibromyalgia; Translations: [Fibromyalgia]Onset: 09-20-2015 07-24-0714VuebvcvbKzqmm connective tissue disease (1 source)Pain in left handOnset: 05-25-2021 Resolved: 61-05-4942RwamajwjYujau connective tissue disease (1 source)Pain in leg, unspecifiedOnset: 07-04-2021 Resolved: 36-75-6757BadqvyigWcths connective tissue disease (1 source)Fibromyalgia; Translations: [Fibromyalgia]Onset: 91-20-3073Otbmjnnr Other ear and sense organ disorders (20 sources)Tinnitus of vascular origin; Translations: [Pulsatile tinnitus, unspecified ear]Onset: [id number] ear and sense organ disorders (2 sources)Cholesteatoma of attic; Translations: [Cholesteatoma of attic, right ear]Onset: 879102-48-2358YpfpyzorRftpg ear and sense organ disorders (2 sources)Tinnitus of right ear; Translations: [Tinnitus, right ear]Onset: 944944-83-3259VaiznlvjFiyrw gastrointestinal disorders (12 sources)Diarrhea, unspecified; Translations: [Diarrhea]Onset: 07-30-2024 EpisodicOther nervous system disorders (2 sources)Abnormal taste in mouth; Translations: [Parageusia]Onset: 10-04-2022 41-80-3312DlolnvmzJwuwb non-traumatic joint disorders (20 sources)Multiple joint pain; Translations: [Pain in unspecified joint]Onset: 059741-58-2131EqnujabkGlsxw upper respiratory disease (2 sources)Allergic rhinitis due to pollen; Translations: [Allergic rhinitis due to pollen]Onset: 10-04-2022 Resolved: [id number]ywzoend (1 source)Lumbar pain M54.50Onset: 07-04-2021 Resolved: 58-85-6218Rarffxwudnbb (1 source)Cough R05.9Onset: 10-20-2021 Resolved: 24-85-4733Bynshcdhmchl (1 source)COUGH, UNSPECIFIED; Translations: [COUGH, UNSPECIFIED]Onset: 40-45-7013Zilfgei tract infections (20 sources)Urinary tract infectious disease; Translations: [Urinary tract infection, site not specified]Onset: 201180-81-3639Srxljfcm Results Test NameValueInterpretationReference RangeFacilityBasophils Auto (Bld) [#/Vol] Ordered By: Jeff Jon on 96-03-4729Lvtvmlvcl (Bld) [#/Vol]0.1 10 3/uL0.0-0.1 [facility] HospitalBasophils/100 WBC Auto (Bld)Ordered By: Jeff Jon on 46-20-0250Xrvtbxkvw/100 WBC (Bld)1.0 %0.2-2.0[facility] HospitalCholesterol in LDL Calc [Mass/Vol]Ordered By: Jeff Jon on 02-82-1519Gexdorsbxbf in LDL [Mass/Vol]53.0 mg/dLSelect Medical Ohiohealth Rehabilitation HospitalComment on above:<100 mg/dl IPDSQXT097-497 mg/dl NEAR OR ABOVE KLPHHHV386- 159 mg/dl BORDERLINE VOUR780-950 mg/dl HIGH>190 mg/dl VERY HIGHCholesterol in VLDL Calc [Mass/Vol]Ordered By: Jeff Jon on 81-10-9368Fxgclpxmocw in VLDL [Mass/Vol]10.8 mg/dLSelect Medical Ohiohealth Rehabilitation HospitalEosinophils/100 WBC Auto (Bld)Ordered By: Jeff Jon on 14-29-1977Uvpwohsurct/100 WBC (Bld)4.8 %0.9-7.0 [facility] HospitalErythrocyte distribution width Auto (RBC) [Ratio]Ordered By: Jeff Jon on 00-17-3741Drneclzzwhg distribution width (RBC) [Ratio]11.9 %11.0-15.0[facility] HospitalGlobulin Calc (S) [Mass/Vol]Ordered By: Jeff Jon on 65-67-9604Rfxopegm (S) [Mass/Vol]3.8 g/dL [facility] HospitalGlomerular filtration rate (GFR) estimation in non- AmericanOrdered By: Jeff Jon on 15-03-5052PEN/1.73 sq M.predicted among non-blacks MDRD (S/P/Bld) [Vol rate/Area]60 mL/min/{1.73_m2} >=60 mL/min/1.73m 2FSt. Francis HospitalGlucose mean value [Mass/volume] in Blood Estimated from glycated hemoglobinOrdered By: Jeff Jon on 23-49-3020Ydjkgwa glucose Estimated from glycated hemoglobin (Bld) [Mass/Vol]194 mg/dLSelect Medical [facility]health Rehabilitation HospitalHematocrit Auto (Bld) [Volume fraction]Ordered By: Jeff Jon on 86-55-6131Ievbebzdad (Bld) [Volume fraction]44.8 %36.0-48.0[facility] HospitalHemoglobin A1c percentageOrdered By: Jeff Jon on 28-88-4775MbX6k (Bld) [Mass fraction]8.4 % High4.5-6.2FSt. Francis HospitalComment on above:ADA RECOMMENDED LIMIT 4.0 - 6.0ADA THERAPEUTIC TARGET < 7.0ACTION SUGGESTED> 7.0Hemoglobin [Mass/volume] in BloodOrdered By: Jeff Jon on 36-63-4477Xrdpxbrqrn (Bld) [Mass/Vol]15.1 g/dL12.0-16.0[facility] HospitalLaboratory - Chemistry and Chemistry - challengeOrdered By: Jeff Jon on 57-06-2816Jlmveap [Mass/Vol]4.1 g/dL3.4-5.0[facility] HospitalALP [Catalytic activity/Vol]102 U/L85-447WmfhwcscySelect Medical [facility]health Rehabilitation HospitalALT [Catalytic activity/Vol]32 U/Z69-98IpnshnkpmSelect Medical [facility] Rehabilitation HospitalAST [Catalytic activity/Vol]22 U/U79-56GnhonkfodSelect Medical Ohiohealth Rehabilitation HospitalBilirubin [Mass/Vol]0.7 mg/dL0.2-1.0[facility] HospitalCalcium [Mass/Vol]10.0 mg/dL 8.5-10.1FSt. Francis HospitalChloride [Moles/Vol]102 mmol/L98-107 [facility] HospitalCholesterol [Mass/Vol]130 mg/dL<=200[facility] HospitalCholesterol in HDL [Mass/Vol]67 mg/lDLlnw83-61AxmfloypcSelect Medical Ohiohealth Rehabilitation HospitalComment on above:> or =60 mg/dl - LOW CARDIOVASCULAR RISK<40 mg/dl - HIGH CARDIOVASCULAR RISKCO2 [Moles/Vol]30.0 mmol/L21.0-32.0 [facility] HospitalCreatinine [Mass/Vol]0.96 mg/dL0.55-1.02 [facility] HospitalFree T4 [Mass/Vol]2.15 ng/dLHigh0.76-1.46 [facility] HospitalGFR/1.73 sq M.predicted MDRD (S/P/Bld) [Vol rate/Area]mL/min/{1.73_m2}>=60 mL/min/1.73m 2FSt. Francis Hospital Glucose [Mass/Vol]145 mg/hVHiud13-882LzrmwwoahSelect Medical [facility]health Rehabilitation HospitalPotassium [Moles/Vol]4.3 mmol/L3.5-5.1FSt. Francis HospitalProtein [Mass/Vol] 7.9 g/dL6.4-8.2FAdams County Regional Medical Centerodium [Moles/Vol]142 mmol/L 136-145[facility] HospitalTriglyceride [Mass/Vol]54 mg/dL<=150 [facility] HospitalTSH Qn0.282 m[IU]/LLow0.358-3.740[facility] HospitalUrea nitrogen [Mass/Vol]19.0 mg/dLHigh7.0-18.0[facility] HospitalUrea nitrogen/Creatinine [Mass ratio]19.8 mg/mgSelect Medical [facility] Rehabilitation HospitalLaboratory - Hematology and Cell countsOrdered By: Jeff Jon on 21-17-0482Ijrwmbej granulocytes/100 WBC (Bld)0.4 %0.0-0.5FSt. Francis HospitalLeukocytes [#/volume] corrected for nucleated erythrocytes in Blood by Automated counOrdered By: Jeff Jon on 50-40-5210GFP corrected for nucl RBC Auto (Bld) [#/Vol]8.0 10 3/uL4.0-11.0[facility] HospitalLymphocytes Auto (Bld) [#/Vol]Ordered By: Jeff Jon on 59-26-2818Jdfigrwhuhq (Bld) [#/Vol]2.3 10 3/uL1.2-3.8[facility] HospitalLymphocytes/100 WBC Auto (Bld)Ordered By: Jeff Jon on 02-24-2025 Lymphocytes/100 WBC (Bld)28.9 %20.5-60.0City HospitalH Auto (RBC) [Entitic mass]Ordered By: Jeff Jon on 42-22-5018SYJ (RBC) [Entitic mass]31.0 pg26.7-34.0[facility] HospitalMCHC Auto (RBC) [Mass/Vol]Ordered By: Jeff Jon on 01-77-7931OGXC (RBC) [Mass/Vol]33.7 g/dL 29.9-35.2FSt. Francis HospitalMCV Auto (RBC) [Entitic vol]Ordered By: Jeff Jon on 56-88-9078IFU (RBC) [Entitic vol]92.0 fL81.0-99.0[facility] HospitalMonocytes Auto (Bld) [#/Vol]Ordered By: Jeff Jon on 30-22-6288Nlsiiceac (Bld) [#/Vol]0.5 10 3/uL0.3-0.8[facility] HospitalMonocytes/100 WBC Auto (Bld)Ordered By: Jeff Jon on 02-24-2025 Monocytes/100 WBC (Bld)6.6 %1.7-12.0[facility] HospitalNeutrophils Auto (Bld) [#/Vol]Ordered By: Jeff Jon on 60-45-7254Pxmfssqveei (Bld) [#/Vol]4.7 10 3/uL1.4-6.5FSt. Francis HospitalNeutrophils/100 WBC Auto (Bld)Ordered By: Jeff Jon on 13-03-7015Acrqshzuevu/100 WBC (Bld)58.3 % 43.0-75.0[facility] HospitalNo Panel InformationOrdered By: Jeff Jon on 204966-Hckmqzp Vitamin D Total43.0 ng/mLSelect Medical [facility] Rehabilitation HospitalComment on above:<20 ng/mL Vit D xfasblfqg19-<30 ng/mL Vit D uzifewdqfmct42-548 ng/mL Vit D sufficient>100 ng/mL Potential Toxicity Eosinophils # (Auto)0.4 10 3/uL0.0-0.7FSt. Francis HospitalFree Triiodothyronine3.08 pg/mL2.18-3.98[facility] HospitalImmature Granulocyte # (Auto)0.03 10 3/uL0.00-0.03[facility] Platelet mean volume Auto (Bld) [Entitic vol]Ordered By: Jeff Jon on 23-59-3817Dpbruqta mean volume (Bld) [Entitic vol]9.9 fL9.5-13.5FSt. Francis HospitalPlatelets Auto (Bld) [#/Vol]Ordered By: Jeff Jon on 21-47-9846Ltpknevwm (Bld) [#/Vol]360 10 3/eE170-545RybedrbdvSelect Medical Ohiohealth Rehabilitation HospitalRBC Auto (Bld) [#/Vol]Ordered By: Jeff Jon on 16-54-1938JIN (Bld) [#/Vol]4.87 10 6/uL4.20-5.40Detwiler Memorial Hospitalerum or plasma albumin/globulin mass ratioOrdered By: Jeff Jon on 02-24-2025 Albumin/Globulin [Mass ratio]1.1 {ratio}[facility]wiler Memorial Hospitalerum or plasma anion gap determinationOrdered By: Jeff Jon on 31-74-9225Lxsey gap [Moles/Vol]14.3 mmol/LFAdams County Regional Medical Centererum or plasma insulin measurement (units/volume)Ordered By: Jeff Jon on 40-23-4164Aylvntc Qn12.7 u[iU]/mL2.6-24.9[facility] HospitalComment on above:Performed at: [facility] Lab[address] [id number] Director: Giuseppe Newell PhD, Phone: [phone] or plasma total cholesterol/high density lipoprotein (HDL) cholesterol mass ratOrdered By: Jeff Jon on 02-24-2025 Cholesterol.total/Cholesterol in HDL [Mass ratio]1.9 {ratio}[facility] HospitalComment on above:3.3 - 4.4 LOW RISK4.4 - 7.1 AVERAGE RISK7.1 - 11.0 MODERATE RISK>11.0 HIGH EDCF43jv 49-56-380471Rs was seen 02/09/25[facility]Follow[facility]Upon 41-40-7273Berjap-[id number] Canelo Pathak 1965 F Date Provider Department Center 02/09/2025 NEO MORENO NUBIA [facility] Family History Problem Relation Age of Onset Pulmonary embolism Mother Kidney disease Father Heart attack Father Family Status - Relation Status Age at Mother Father Brother Alive Level of Service:43884 [place] OFFICE/OUTPATIENT ESTABLISHED MOD MDM 30 [facility] CenterGlomerular filtration rate (GFR) estimation in non- AmericanOrdered By: Neo Espino on 15-48-2501ETI/1.73 sq M.predicted among non-blacks MDRD (S/P/Bld) [Vol rate/Area]mL/min/{1.73_m2}>=60 mL/min/1.[address]m [address] [place], [place] [address]Laboratory - Chemistry and Chemistry - challengeOrdered By: Neo Espino on 50-13-5726Xqptwtd [Mass/Vol]9.6 mg/dL8.5-10.1FSt. Francis HospitalChloride [Moles/Vol] 102 mmol/S81-363SwvjszughSelect Medical [facility]health Rehabilitation HospitalCO2 [Moles/Vol]27.3 mmol/L 21.0-32.0[facility] HospitalCreatinine [Mass/Vol]0.94 mg/dL 0.55-1.02[facility] HospitalGFR/1.73 sq M.predicted MDRD (S/P/Bld) [Vol rate/Area]mL/min/{1.73_m2}>=60 mL/min/1.73m [address] [place], [place] [address]Glucose [Mass/Vol]175 mg/gLQeei99-614BpfcaghylSelect [facility] Hospital Potassium [Moles/Vol]4.5 mmol/L3.5-5.1FAdams County Regional Medical Centerodium [Moles/Vol]139 mmol/K537-815HassgedstSelect Medical Ohiohealth Rehabilitation HospitalUrea nitrogen [Mass/Vol]19.0 mg/dLHigh7.0-18.0[facility] HospitalUrea nitrogen/Creatinine [Mass ratio]20.2 mg/mgDetwiler Memorial Hospitalerum or plasma anion gap determinationOrdered By: Neo Fitzpatricklloyd on 42-27-5316Wtucw gap [Moles/Vol]14.2 mmol/LFSt. Francis Hospital36on Patient called back and I advised her she could stop Imdur and metformin (per PCP). She was very happy and verbalized understanding.[facility]36LM for patient to return my call.[facility]36on [id number] called s/p cath on 01/08. You started [...] gets very lightheaded and nauseous. Any recommendations? Thanks![facility] HospitalTelephoneon 11-96-7879Bvnbsnlud [id number] LawsonCanelo Sue 1965 F Date Provider Department Center 01/12/2025 JURGEN HAWKINS NUBIA [facility] Family History Problem Relation Age of Onset Pulmonary embolism Mother Kidney disease Father Heart attack Father Family Status - Relation Status Age at Mother Father Brother AliveNormalUniversity of Wise [facility] 18-60-0518TKKB Attestation signed by Won Blanton MD at 01/08/2025 8:20 AM Won Blanton MD, MPH, FACC, [facility] Interventional Cardiology Pager Email: [email or web address] Patient: Canelo Pathak Pre-sedation Evaluation: Moderate sedation [...] Hypertension 10/11/2023 Hypothyroidism 10/11/2023 Osteoarthritis 10/11/2023 [facility] [place] [facility] (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 10/11/2023 Palpitation 10/11/2023 Polyarthralgia 10/11/2023 Seasonal allergies 10/11/2023 UTI (urinary tract infection) 10/11/2023 Vitamin D deficiency 10/11/2023 Diabetes ([facility]) 09/24/2023 Asymmetric SNHL (sensorineural hearing loss) 09/24/2023 Right-sided tinnitus 09/24/2023 Cholesteatoma of attic of ear, 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 Pulsatile tinnitus of right ear 08/21/2023 Abnormal taste in mouth 10/04/2022 Allergic rhinitis due to animal hair and dander 10/04/2022 Gastroesophageal reflux disease with esophagitis 10/04/2022 Type 2 diabetes mellitus with hyperglycemia, without long-term current use of insulin ([facility]) 10/11/2021 Binge eating disorder 09/20/2015 BMI 50.0-59.9, adult ([facility]) 09/20/2015 CFS (chronic fatigue syndrome) 09/20/2015 Fibromyalgia 09/20/2015 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 Raiza Rocha PGY-4 [employer] [facility] [1] Past Medical History: Diagnosis Date Abnormal ECG Asthma Diabetes mellitus ([facility]) GERD (gastroesophageal reflux disease) Hyperlipidemia Hypertension Hypothyroidism [...] two times daily. glimepiri (more content not included)...[facility] HospitalHPon 21-33-6452RX Attestation signed by Won Blanton MD at [...] me. Additional Comments: Won Blanton MD, MPH, [facility], [facility], [facility] Interventional Cardiology Pager Email: [email or web address] H&P reviewed. The patient was examined and there are no changes to the H&P. Will proceed with coronary angiography and right heart catheterization for further evaluation of abnormal stress test and shortness of breath. Consent for blood products obtained. Risks, benefits, and alternatives to procedure discussed with patient in detail who expressed understanding and agreed to proceed.[facility] HospitalNURSNOTEon 02-55-1837SOAEOBRAKC educated pt on d/c instructions. This included: [...] wheeled off of unit with all of belongings.[facility] HospitalOrders Onlyon 37-41-2800Ejxnis [id number] Canelo Pathak 1965 F Date Provider Department Center 01/08/2025 [facility] Family History Problem Relation Age of Onset Pulmonary embolism Mother Kidney disease Father Heart attack Father Family Status - Relation Status Age at Mother Father Brother AliveNormalUniversity SCCI Hospital LimaBasophils Auto (Bld) [#/Vol]Ordered By: Neo Espino on 48-02-4388Yhpeptmrb (Bld) [#/Vol]0.1 10 3/uL0.0-0.1FSt. Francis HospitalBasophils/100 WBC Auto (Bld)Ordered By: Neo Espino on 99-91-8317Phxisthge/100 WBC (Bld)1.0 %0.2-2.0[facility] HospitalEosinophils/100 WBC Auto (Bld)Ordered By: Neo Espino on 15-17-0049Wkslxmbcoqs/100 WBC (Bld)6.1 %0.9-7.0[facility] HospitalErythrocyte distribution width Auto (RBC) [Ratio]Ordered By: Neo Espino on 31-52-3733Psmuvnncqpq distribution width (RBC) [Ratio]12.2 % 11.0-15.0[facility] HospitalGlomerular filtration rate (GFR) estimation in non- AmericanOrdered By: Neo Espino on 01-06-2025 GFR/1.73 sq M.predicted among non-blacks MDRD (S/P/Bld) [Vol rate/Area] mL/min/{1.73_m2}>=60 mL/min/1.73m 2FSt. Francis HospitalHematocrit Auto (Bld) [Volume fraction]Ordered By: Neo Espino on 38-60-2361Qyqwsidvme (Bld) [Volume fraction]40.9 %36.0-48.0[facility] Hemoglobin [Mass/volume] in BloodOrdered By: Neo Espino on 01-06-2025 Hemoglobin (Bld) [Mass/Vol]13.7 g/dL12.0-16.0[facility] Laboratory - Chemistry and Chemistry - challengeOrdered By: Neo Espino on 95-72-3275Tfyakyq [Mass/Vol]9.2 mg/dL8.5-10.1FSt. Francis Hospital Chloride [Moles/Vol]104 mmol/X93-357RdquznuvoSelect Medical Ohiohealth Rehabilitation HospitalCO2 [Moles/Vol]30.0 mmol/L21.0-32.0[facility] HospitalCreatinine [Mass/Vol]0.67 mg/dL0.55-1.02[facility] HospitalGFR/1.73 sq M.predicted MDRD (S/P/Bld) [Vol rate/Area]mL/min/{1.73_m2}>=60 mL/min/1.73m 2 [facility] HospitalGlucose [Mass/Vol]134 mg/cIXoyp65-765RgvdfytqkSelect Medical [facility] Rehabilitation HospitalPotassium [Moles/Vol]4.4 mmol/L3.5-5.1FAdams County Regional Medical Centerodium [Moles/Vol]139 mmol/T239-280HjxwcncbzSelect Medical [facility] Rehabilitation HospitalUrea nitrogen [Mass/Vol]19.0 mg/dLHigh7.0-18.0[facility] HospitalUrea nitrogen/Creatinine [Mass ratio]28.4 mg/mgSelect Medical [facility] Rehabilitation HospitalLaboratory - Hematology and Cell countsOrdered By: Neo Espino on 96-11-1360Flhexmvy granulocytes/100 WBC (Bld)0.3 %0.0-0.5FSt. Francis HospitalLeukocytes [#/volume] corrected for nucleated erythrocytes in Blood by Automated counOrdered By: Neo Espino on 43-42-4167OXF corrected for nucl RBC Auto (Bld) [#/Vol]7.9 10 3/uL4.0-11.0[facility] HospitalLymphocytes Auto (Bld) [#/Vol]Ordered By: Neo Espino on 01-06-2025 Lymphocytes (Bld) [#/Vol]2.3 10 3/uL1.2-3.8[facility] Lymphocytes/100 WBC Auto (Bld)Ordered By: Neo Espino on 01-06-2025 Lymphocytes/100 WBC (Bld)28.9 %20.5-60.0[facility] Auto (RBC) [Entitic mass]Ordered By: Neo Espino on 75-49-8051UGA (RBC) [Entitic mass]30.9 pg26.7-34.0[facility] HospitalMCHC Auto (RBC) [Mass/Vol]Ordered By: Neo Espino on 39-40-8554NDHO (RBC) [Mass/Vol]33.5 g/dL29.9-35.2FSt. Francis HospitalMCV Auto (RBC) [Entitic vol] Ordered By: Neo Espino on 48-80-6950YBZ (RBC) [Entitic vol]92.3 fL 81.0-99.0[facility] HospitalMonocytes Auto (Bld) [#/Vol]Ordered By: Neo Espino on 54-89-1377Sqoluzoub (Bld) [#/Vol]0.5 10 3/uL0.3-0.8 [facility] HospitalMonocytes/100 WBC Auto (Bld)Ordered By: Neo Espino on 85-19-8338Wpksmydrs/100 WBC (Bld)6.4 %1.7-12.0[facility] HospitalNeutrophils Auto (Bld) [#/Vol]Ordered By: Neo Espino on 00-09-2580Ggfuccccegj (Bld) [#/Vol]4.5 10 3/uL1.4-6.5FSt. Francis HospitalNeutrophils/100 WBC Auto (Bld)Ordered By: Neo Espino on 01-06-2025 Neutrophils/100 WBC (Bld)57.3 %43.0-75.0[facility] HospitalNo Panel InformationOrdered By: Neo Espino on 94-86-0660Optnhwzptwq # (Auto) 0.5 10 3/uL0.0-0.7FSt. Francis HospitalImmature Granulocyte # (Auto) 0.02 10 3/uL0.00-0.03[facility] HospitalPlatelet mean volume Auto (Bld) [Entitic vol]Ordered By: Neo Espino on 63-79-3912Czgqjfmx mean volume (Bld) [Entitic vol]10.5 fL9.5-13.5FSt. Francis Hospital Platelets Auto (Bld) [#/Vol]Ordered By: Neo Espino on 96-68-0723Djlwrnuth (Bld) [#/Vol]358 10 3/bQ213-728XhterzygdSelect Medical Ohiohealth Rehabilitation HospitalRBC Auto (Bld) [#/Vol]Ordered By: Neo Espino on 20-61-5148FDM (Bld) [#/Vol]4.43 10 6/uL 4.20-5.40Detwiler Memorial Hospitalerum or plasma anion gap determinationOrdered By: Neo Espino on 44-48-7282Lkvfp gap [Moles/Vol]9.4 mmol/LFSt. Francis HospitalHPon 75-36-9045DPUP Cardiology [facility] Subjective Canelo Pathak is a 59 y.o. [...] Asymmetric SNHL (sensorineural hearing loss) Osteoarthritis [facility] [place] [facility] 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 Palpitation Polyarthralgia Pulsatile tinnitus of right ear Right-sided tinnitus Seasonal allergies Type 2 diabetes mellitus with hyperglycemia, without long-term current use of insulin (CMS/[facility]) UTI (urinary tract infection) Vitamin D [...] and GERD who was admitted to the [facility] on 08/05/2024 with chest pressure and [...] She is not ill-appearing. (more content not included)...[facility] HospitalOffice Visiton 50-27-6894Tdgttf-up [id number] Canelo Pathak 1965 F Date Provider Department Center 01/05/2025 NEO MORENO CARD [facility] Family History Problem Relation Age of Onset Pulmonary embolism Mother Kidney disease Father Heart attack Father Family Status - Relation Status Age at Mother Father Brother Alive Level of Service:96292 [place] OFFICE/OUTPATIENT ESTABLISHED HIGH [facility] CenterOrders Onlyon 01-83-8093Lcewal [id number] Canelo Pathak 1965 F Date Provider Department Center 01/05/2025 [id number], HISTORICAL CARD [facility] Family History Problem Relation Age of Onset Pulmonary embolism Mother Kidney disease Father Heart attack Father Family Status - Relation Status Age at Mother Father Brother AliveNoalUniWexner Medical CenterOrders Onlyon 12-29-2024 Orders [id number] Canelo Pathak 1965 F Date Provider Department Center 12/29/2024 [id number], HISTORICAL CARD [facility] Family History Problem Relation Age of Onset Pulmonary embolism Mother Kidney disease Father Heart attack Father Family Status - Relation Status Age at Mother Father Brother AliveNoSamaritan HospitalBasophils Auto (Bld) [#/Vol]Ordered By: Jeff Jon on 38-13-3642Woulcdtbl (Bld) [#/Vol]0.1 10 3/uL 0.0-0.1FSt. Francis HospitalBasophils/100 WBC Auto (Bld)Ordered By: Jeff Jon on 16-20-3324Eeyftwoul/100 WBC (Bld)0.7 %0.2-2.0[facility] HospitalEosinophils/100 WBC Auto (Bld)Ordered By: Jeff Jon on 69-81-2639Sdcczyhnttu/100 WBC (Bld)4.6 %0.9-7.0[facility] Erythrocyte distribution width Auto (RBC) [Ratio]Ordered By: Jeff Jon on 67-77-2656Wowtbzxiakk distribution width (RBC) [Ratio]12.0 %11.0-15.0[facility] HospitalGlucose mean value [Mass/volume] in Blood Estimated from glycated hemoglobinOrdered By: Jeff Jon on 45-10-6806Vowsimx glucose Estimated from glycated hemoglobin (Bld) [Mass/Vol]186 mg/dLSelect Medical Ohiohealth Rehabilitation HospitalHematocrit Auto (Bld) [Volume fraction]Ordered By: Jeff Jon on 30-51-5255Bqyfzthdxy (Bld) [Volume fraction]40.2 %36.0-48.0[facility] HospitalHemoglobin A1c percentageOrdered By: Jeff Jon on 11-26-2024 HbA1c (Bld) [Mass fraction]8.1 %High4.5-6.2FSt. Francis Hospital Comment on above:ADA RECOMMENDED LIMIT 4.0 - 6.0ADA THERAPEUTIC TARGET < 7.0ACTION SUGGESTED> 7.0Hemoglobin [Mass/volume] in BloodOrdered By: Jeff Jon on 86-36-8363Xhwnfyhbip (Bld) [Mass/Vol]13.4 g/dL12.0-16.0[facility] HospitalLaboratory - Chemistry and Chemistry - challengeOrdered By: Jeff Jon on 87-00-9830Lvnazpjdb Ql (U)NegativeNEGATIVESelect Medical Ohiohealth Rehabilitation HospitalGlucose (U) [Mass/Vol]NegativeNEGATIVESelect Medical Ohiohealth Rehabilitation HospitalKetones Ql (U)NegativeNEGMetroHealth Cleveland Heights Medical CenterpH (U)6.0 [pH]5.0-9.0Detwiler Memorial Hospitalpecific gravity (U) [Rel density] >=1.014Mjarvsoq0.005-1.025[facility] HospitalUrobilinogen Qn (U) 0.2 {David'U}/dL0.2-1.0[facility] HospitalLaboratory - Hematology and Cell countsOrdered By: Jeff Jon on 82-27-2101Pufventh granulocytes/100 WBC (Bld)0.6 %High0.0-0.5FSt. Francis Hospital Laboratory - Specimen informationOrdered By: Jeff Jon on 11-26-2024 Appearance (U)CLEARCLEARFSt. Francis HospitalColor (U)LT. YELLOW YELLOWSelect Medical Ohiohealth [facility] HospitalLaboratory - UrinalysisOrdered By: Jeff Jon on 22-82-9813Idvzjloxn esterase Test strip Ql (U)NegativeNEGATIVE [facility] HospitalNitrite Ql (U)NegativeNEGATIVESelect Medical [facility]health Rehabilitation HospitalProtein Ql (U)NegativeNEG/TRACESelect Medical [facility]health Rehabilitation HospitalLeukocytes [#/volume] corrected for nucleated erythrocytes in Blood by Automated counOrdered By: Jeff Jon on 81-63-4252LEP corrected for nucl RBC Auto (Bld) [#/Vol]7.2 10 3/uL4.0-11.0[facility] Lymphocytes Auto (Bld) [#/Vol]Ordered By: Jeff Jon on 04-44-3503Bhmiluctxwv (Bld) [#/Vol]1.9 10 3/uL1.2-3.8[facility] HospitalLymphocytes/100 WBC Auto (Bld)Ordered By: Jeff Jon on 18-44-6534Fifzpocfrkc/100 WBC (Bld) 25.8 %20.5-60.0[facility] HospitalH Auto (RBC) [Entitic mass] Ordered By: Jeff Jon on 11-05-9442ZPK (RBC) [Entitic mass]31.0 pg26.7-34.0 [facility] HospitalMCHC Auto (RBC) [Mass/Vol]Ordered By: Jeff Jon on 12-94-1101FVQP (RBC) [Mass/Vol]33.3 g/dL29.9-35.2FSt. Francis HospitalMCV Auto (RBC) [Entitic vol]Ordered By: Jeff Jon on 11-26-2024 MCV (RBC) [Entitic vol]93.1 fL81.0-99.0[facility] Monocytes Auto (Bld) [#/Vol]Ordered By: Jeff Jon on 80-76-0488Cwgabmqwq (Bld) [#/Vol]0.6 10 3/uL0.3-0.8[facility] HospitalMonocytes/100 WBC Auto (Bld)Ordered By: Jeff Jon on 93-07-9906Fdsmxvrjl/100 WBC (Bld)7.7 % 1.7-12.0[facility] HospitalNeutrophils Auto (Bld) [#/Vol]Ordered By: Jeff Jon on 90-50-9368Tqevqlonkbw (Bld) [#/Vol]4.4 10 3/uL1.4-6.5 [facility] HospitalNeutrophils/100 WBC Auto (Bld)Ordered By: Jeff Jon on 65-00-0446Oprdsjrbagy/100 WBC (Bld)60.6 %43.0-75.0[facility] HospitalNo Panel InformationOrdered By: Jeff Jon on 11-26-2024 Eosinophils # (Auto)0.3 10 3/uL0.0-0.7FSt. Francis HospitalImmature Granulocyte # (Auto)0.04 10 3/uLHigh0.00-0.03[facility] Urine Occult BloodNegativeNEGATIVESelect Medical [facility]health Rehabilitation HospitalPlatelet mean volume Auto (Bld) [Entitic vol]Ordered By: Jeff Jon on 88-84-0596Usrcaotl mean volume (Bld) [Entitic vol]9.6 fL9.5-13.5FSt. Francis Hospital Platelets Auto (Bld) [#/Vol]Ordered By: Jeff Jon on 37-20-8236Yjyiczssw (Bld) [#/Vol]306 10 3/mV353-594IivxobbnjSelect Medical Ohiohealth Rehabilitation HospitalRBC Auto (Bld) [#/Vol]Ordered By: Jeff Jon on 01-36-4107OHE (Bld) [#/Vol]4.32 10 6/uL 4.20-5.40[facility] HospitalUrine Cultureon 22-01-0698Sltkpuru identified Cx Nom (U)75,000 colonies/ml mixed bacterial skin contaminants 2 Days PERFORMED BY: [facility] [address] [place] [address] PATHOLOGIST LAYOUT INSPECTOR ASAD DANIELLE M.D.NormalThe Northern Regional Hospital Physician GroupComment on above: Performed By: #### CUU #### [facility] [address] [place] [address] USACholesterol in LDL Calc [Mass/Vol]Ordered By: Jeff Jon on 63-82-2994Paqcycjizni in LDL [Mass/Vol]107.0 mg/dLSelect Medical Ohiohealth Rehabilitation HospitalComment on above:<100 mg/dl VYCDLDA249-067 mg/dl NEAR OR ABOVE EEOHWDQ842-627 mg/dl BORDERLINE QMJQ229-320 mg/dl HIGH>190 mg/dl VERY HIGH Cholesterol in VLDL Calc [Mass/Vol]Ordered By: Jeff Jon on 11-20-2024 Cholesterol in VLDL [Mass/Vol]18.2 mg/dLSelect Medical [facility]health [facility] Hospital Estimated glomerular filtration rate (GFR) non- AmericanOrdered By: Jeff Jon on 71-00-1371STT/1.73 sq M.predicted among non-blacks MDRD (S/P/Bld) [Vol rate/Area]mL/min/{1.73_m2}>=60 mL/min/1.73m 2FSt. Francis HospitalGlobulin Calc (S) [Mass/Vol]Ordered By: Jeff Jon on 43-14-5655Qlvcalxh (S) [Mass/Vol]3.3 g/dLSelect Medical [facility]health Rehabilitation HospitalLaboratory - Chemistry and Chemistry - challengeOrdered By: Jeff Jon on 92-15-5557Patvylv [Mass/Vol]3.4 g/dL3.4-5.0[facility] HospitalALP [Catalytic activity/Vol]82 U/H77-770VbvlwtdjrSelect Medical Ohiohealth Rehabilitation HospitalALT [Catalytic activity/Vol]33 U/F00-32UdddgeqfdSelect Medical [facility]health Rehabilitation HospitalAST [Catalytic activity/Vol]20 U/A06-68MoaxmvhsxSelect Medical [facility]health Rehabilitation HospitalBilirubin [Mass/Vol]0.4 mg/dL0.2-1.0[facility] HospitalCalcium [Mass/Vol]9.3 mg/dL 8.5-10.1FSt. Francis HospitalChloride [Moles/Vol]104 mmol/L98-107 [facility] HospitalCholesterol [Mass/Vol]207 mg/dLHigh<=200 [facility] HospitalCholesterol in HDL [Mass/Vol]82 mg/bJAela64-09 [facility] HospitalComment on above:> or =60 mg/dl - LOW CARDIOVASCULAR RISK<40 mg/dl - HIGH CARDIOVASCULAR RISKCO2 [Moles/Vol]27.2 mmol/L21.0-32.0[facility] HospitalCreatinine [Mass/Vol]0.68 mg/dL 0.55-1.02[facility] HospitalFree T4 [Mass/Vol]1.68 ng/dLHigh 0.76-1.46[facility] HospitalGFR/1.73 sq M.predicted MDRD (S/P/Bld) [Vol rate/Area]mL/min/{1.73_m2}>=60 mL/min/1.73m 2FSt. Francis HospitalGlucose [Mass/Vol]163 mg/gAXtgt60-439GrostgobwSelect Medical [facility] Hospital Potassium [Moles/Vol]4.5 mmol/L3.5-5.1FSt. Francis HospitalProtein [Mass/Vol]6.7 g/dL6.4-8.2FAdams County Regional Medical Centerodium [Moles/Vol]141 mmol/I923-889SvpmbqrrwSelect Medical [facility]health Rehabilitation HospitalTriglyceride [Mass/Vol]91 mg/dL <=150[facility] HospitalTSH Qn0.712 m[IU]/L0.358-3.740[facility] HospitalUrea nitrogen [Mass/Vol]15.0 mg/dL7.0-18.0[facility] HospitalUrea nitrogen/Creatinine [Mass ratio]22.1 mg/mgSelect Medical [facility]health Rehabilitation HospitalLaboratory - Chemistry and Chemistry - challengeOrdered By: Neo Espino on 52-86-0245Ccmxsnhio.direct [Mass/Vol]0.1 mg/dL0.0-0.2 [facility] HospitalCK [Catalytic activity/Vol]29 U/L26-192 [facility] HospitalLaboratory - Hematology and Cell countsOrdered By: Outside Provider on 50-68-3070PME (Bld) [Velocity]15 mm/h<=30[facility] HospitalNo Panel InformationOrdered By: Jeff Jon on 488377-Fykwlwx Vitamin D Total34.8 ng/mLSelect Medical [facility] Hospital Comment on above:<20 ng/mL Vit D atgvyotko00-<30 ng/mL Vit D hekwhsdgvhii85-508 ng/mL Vit D sufficient>100 ng/mL Potential ToxicityFree Triiodothyronine3.27 pg/mL2.18-3.98[facility] HospitalNo Panel InformationOrdered By: Outside Provider on 68-93-2969X-Reactive Protein, Quantitative<0.50 mg/dL<=0.50 [facility] Hospitalcl-70 (Scleroderma) Antibody<0.2 AI0.0-0.9 [facility] HospitalComment on above:Performed at: [facility] [place], [place] [id number] Director: Giuseppe Newell PhD, Phone: [phone] nuclear antibody titerOrdered By: Outside Provider on 48-36-5783Srhhfsh Ab (S) [Titer]Negative.[facility] Comment on above:Negative <1:80 Borderline 1:80 Positive >1:80ICAP nomenclature: AC-0For more information about Hep-2 cell patterns useANApatterns.org, the official website for theInternational Consensus on Antinuclear Antibody (KATHY)Patterns (ICAP).Performed at: [facility]UN[facility] CenterManmmc[address] [place], [id number] Director: Giuseppe Newell PhD, Phone: [phone] or plasma albumin/globulin mass ratioOrdered By: Jeff Jon on 11-20-2024 Albumin/Globulin [Mass ratio]1.0 {ratio}[facility] Hospitalerum or plasma anion gap determinationOrdered By: Jeff Jon on 32-65-7072Tpxck gap [Moles/Vol]14.3 mmol/LFAdams County Regional Medical Centererum or plasma rheumatoid factor measurement (units/volume)Ordered By: Outside Provider on 05-45-1579Lkiektswyo factor Qn[IU]/mL<14.0[facility] Comment on above:Performed at: [facility] [place], [place] [id number] Director: Giuseppe Newell PhD, Phone: [phone] or plasma total cholesterol/high density lipoprotein (HDL) cholesterol mass ratOrdered By: Jeff Jon on 42-65-6342Jlvqrpdbxcb.total/Cholesterol in HDL [Mass ratio]2.5 {ratio}[facility] HospitalComment on above:3.3 - 4.4 LOW RISK4.4 - 7.1 AVERAGE RISK7.1 - 11.0 MODERATE RISK>11.0 HIGH RISKLaboratory - Chemistry and Chemistry - challengeon 19-65-2540Lvbn T4 [Mass/Vol]2.01 ng/dLHigh0.76-1.46 [facility] HospitalTSH Qn0.260 m[IU]/LLow0.358-3.740[facility] HospitalNo Panel Informationon 39-97-0678Ffar Triiodothyronine 2.19 pg/mL2.18-3.98[facility] HospitalOffice Visiton 08-25-2024 Follow-up [id number] Canelo Pathak 1965 F Date Provider Department Center 08/25/2024 NEO MORENO Family History Problem Relation Age of Onset Pulmonary embolism Mother Kidney disease Father Heart attack Father Family Status - Relation Status Age at Mother Father Brother Alive Level of Service:[address] [place] OFFICE/OUTPATIENT NEW MODERATE MDM 45 MINUTESNormal [facility] NorthBasophils Auto (Bld) [#/Vol]on 08-06-2024 Basophils (Bld) [#/Vol]Automated basophil count0.0-0.1FSt. Francis HospitalBasophils/100 WBC Auto (Bld)on 53-27-9952Gicvmugok/100 WBC (Bld)Automated basophil %0.2-2.0[facility] HospitalCholesterol in LDL Calc [Mass/Vol]on 90-52-6197Wytvsbnctqp in LDL [Mass/Vol]Cholesterol in LDL [Mass/volume] in Serum or Plasma by calculationSelect Medical [facility]health Rehabilitation Hospital Comment on above:<100 mg/dl GQAQXXD373-073 mg/dl NEAR OR ABOVE UOCDKTA518-435 mg/dl BORDERLINE JQXL092-686 mg/dl HIGH>190 mg/dl VERY HIGHCholesterol in VLDL Calc [Mass/Vol]on 08-29-3156Surqnjjoscm in VLDL [Mass/Vol]Cholesterol in VLDL [Mass/volume] in Serum or Plasma by calculationSelect Medical [facility]health Rehabilitation Hospital Eosinophils/100 WBC Auto (Bld)on 24-46-2282Zhendvesxbu/100 WBC (Bld)Automated eosinophil %0.9-7.0[facility] HospitalErythrocyte distribution width Auto (RBC) [Ratio]on 34-92-0929Dvmnwuhmfcg distribution width (RBC) [Ratio]Erythrocyte distribution width [Ratio] by Automated count11.0-15.0 [facility] HospitalEstimated glomerular filtration rate (GFR) non- Americanon 82-39-9303DLB/1.73 sq M.predicted among non-blacks MDRD (S/P/Bld) [Vol rate/Area]Estimated glomerular filtration rate (GFR) non->=60 mL/min/1.73m 2FSt. Francis HospitalGlobulin Calc (S) [Mass/Vol]on 70-41-1405Shmnyljc (S) [Mass/Vol]Serum globulin measurement by calculation (mass/volume)[facility] HospitalGlucose mean value [Mass/volume] in Blood Estimated from glycated hemoglobinon 01-77-6372Ggzrusw glucose Estimated from glycated hemoglobin (Bld) [Mass/Vol]Glucose mean value [Mass/volume] in Blood Estimated from glycated hemoglobinSelect Medical [facility]health Rehabilitation HospitalHematocrit Auto (Bld) [Volume fraction]on 54-92-9502Ndnqiltxqm (Bld) [Volume fraction]Hematocrit [Volume Fraction] of Blood by Automated count 36.0-48.0[facility] HospitalHemoglobin A1c percentageon 08-06-2024 HbA1c (Bld) [Mass fraction]Hemoglobin A1c percentageHigh4.5-6.2FSt. Francis HospitalComment on above:ADA RECOMMENDED LIMIT 4.0 - 6.0ADA THERAPEUTIC TARGET < 7.0ACTION SUGGESTED> 7.0Hemoglobin [Mass/volume] in Bloodon 80-03-7944Uuqjyljxlf (Bld) [Mass/Vol]Hemoglobin [Mass/volume] in Blood12.0-16.0 [facility] HospitalLaboratory - Chemistry and Chemistry - challengeon 65-16-0403Ffalavj [Mass/Vol]4.1 g/dL3.4-5.0[facility] HospitalALP [Catalytic activity/Vol]91 U/Z84-107IbywktndiSelect Medical [facility]health Rehabilitation HospitalALT [Catalytic activity/Vol]24 U/F44-54PugrirjkaSelect Medical [facility]health Rehabilitation Hospital AST [Catalytic activity/Vol]23 U/D15-14XxgbtwbvhSelect Medical [facility] Hospital Bilirubin [Mass/Vol]0.5 mg/dL0.2-1.0[facility] HospitalCalcium [Mass/Vol]10.1 mg/dL8.5-10.1FSt. Francis HospitalChloride [Moles/Vol]100 mmol/T46-101XltmjustnSelect Medical [facility]health Rehabilitation HospitalCholesterol [Mass/Vol]258 mg/dLHigh<=200[facility] HospitalCholesterol in HDL [Mass/Vol]86 mg/bFNghs05-24GgdaejcemSelect Medical [facility]health Rehabilitation HospitalComment on above:> or =60 mg/dl - LOW CARDIOVASCULAR RISK<40 mg/dl - HIGH CARDIOVASCULAR RISKCO2 [Moles/Vol]27.5 mmol/L21.0-32.0[facility] HospitalCreatinine [Mass/Vol]0.91 mg/dL0.55-1.02[facility] HospitalGFR/1.73 sq M.predicted MDRD (S/P/Bld) [Vol rate/Area]mL/min/{1.73_m2}>=60 mL/min/1.73m 2 [facility] HospitalGlucose [Mass/Vol]125 mg/tQAnpd38-198VuhqnblseSelect Medical [facility]health Rehabilitation HospitalMagnesium [Mass/Vol]1.9 mg/dL1.8-2.4FSt. Francis HospitalPotassium [Moles/Vol]4.0 mmol/L3.5-5.1FSt. Francis HospitalProtein [Mass/Vol]7.7 g/dL6.4-8.2FAdams County Regional Medical Centerodium [Moles/Vol]140 mmol/P667-986CuicamvwuSelect Medical [facility] Rehabilitation HospitalTriglyceride [Mass/Vol]158 mg/dLHigh<=150[facility] HospitalTSH Qn50.079 m[IU]/LHigh0.358-3.740[facility] HospitalUrea nitrogen [Mass/Vol] 18.0 mg/dL7.0-18.0[facility] HospitalUrea nitrogen/Creatinine [Mass ratio]19.8 mg/mgSelect Medical [facility] Rehabilitation HospitalLaboratory - Hematology and Cell countson 04-18-8049Hhrnuxxq granulocytes/100 WBC (Bld)0.5 %0.0-0.5 [facility] HospitalLeukocytes [#/volume] corrected for nucleated erythrocytes in Blood by Automated counon 80-27-4933IYV corrected for nucl RBC Auto (Bld) [#/Vol]Leukocytes [#/volume] corrected for nucleated erythrocytes in Blood by Automated coun4.0-11.0[facility] HospitalLymphocytes Auto (Bld) [#/Vol]on 81-09-2184Hcqjafevmhe (Bld) [#/Vol]Lymphocytes [#/volume] in Blood by Automated count1.2-3.8[facility] HospitalLymphocytes/100 WBC Auto (Bld)on 04-52-1691Zfbrtpcvmpl/100 WBC (Bld)Lymphocytes/100 leukocytes in Blood by Automated count20.5-60.0[facility] HospitalH Auto (RBC) [Entitic mass]on 81-02-4264UKQ (RBC) [Entitic mass]MCH [Entitic mass] by Automated count26.7-34.0[facility] HospitalMCHC Auto (RBC) [Mass/Vol]on 04-10-8451LORW (RBC) [Mass/Vol]MCHC [Mass/volume] by Automated count29.9-35.2FSt. Francis HospitalMCV Auto (RBC) [Entitic vol]on 51-83-0794YBQ (RBC) [Entitic vol]MCV [Entitic volume] by Automated count 81.0-99.0[facility] HospitalMonocytes Auto (Bld) [#/Vol]on 89-78-9686Bwwfcvvfx (Bld) [#/Vol]Automated blood monocyte count0.3-0.8[facility] HospitalMonocytes/100 WBC Auto (Bld)on 40-10-5367Ptrfnjrkh/100 WBC (Bld)Automated monocyte %1.7-12.0[facility] Neutrophils Auto (Bld) [#/Vol]on 53-73-0909Xyxnlehkrig (Bld) [#/Vol]Neutrophils [#/volume] in Blood by Automated count1.4-6.5FSt. Francis Hospital Neutrophils/100 WBC Auto (Bld)on 93-38-3219Ayvtdqvzygp/100 WBC (Bld)Automated neutrophil %43.0-75.0[facility] HospitalNo Panel Informationon 01-25-7355Fgeyrggpdyn # (Auto)0.4 10 3/uL0.0-0.7FSt. Francis HospitalImmature Granulocyte # (Auto)0.04 10 3/uLHigh0.00-0.03[facility] HospitalTroponin I High Sensitivity6.6 pg/mL4.0-51.3FSt. Francis HospitalComment on above:CUT-OFF POINTS HAVE BEEN ESTABLISHED BASED [...] INFORMATION.Platelet mean volume Auto (Bld) [Entitic vol]on 48-55-5497Rendcein mean volume (Bld) [Entitic vol] Platelet mean volume [Entitic volume] in Blood by Automated count9.5-13.5 [facility] HospitalPlatelets Auto (Bld) [#/Vol]on 08-06-2024 Platelets (Bld) [#/Vol]Platelets [#/volume] in Blood by Automated iyjpv632-905 [facility] HospitalRBC Auto (Bld) [#/Vol]on 43-17-0024JNW (Bld) [#/Vol]Erythrocytes [#/volume] in Blood by Automated count4.20-5.40[facility] Hospitalerum or plasma albumin/globulin mass ratioon 08-06-2024 Albumin/Globulin [Mass ratio]Serum or plasma albumin/globulin mass ratio [facility] Hospitalerum or plasma anion gap determinationon 87-21-1821Crmpe gap [Moles/Vol]Serum or plasma anion gap determinationDetwiler Memorial Hospitalerum or plasma total cholesterol/high density lipoprotein (HDL) cholesterol mass constantin 33-03-5172Snpemuguoii.total/Cholesterol in HDL [Mass ratio]Serum or plasma total cholesterol/high density lipoprotein (HDL) cholesterol mass ratSelect Medical [facility]health Rehabilitation HospitalComment on above:3.3 - 4.4 LOW RISK4.4 - 7.1 AVERAGE RISK7.1 - 11.0 MODERATE RISK>11.0 HIGH RISK Basophils Auto (Bld) [#/Vol]on 82-07-2502Wapsenoxr (Bld) [#/Vol]Automated basophil count0.0-0.1FSt. Francis HospitalBasophils/100 WBC Auto (Bld)on 42-60-4357Cukubzcxa/100 WBC (Bld)Automated basophil %0.2-2.0[facility] HospitalEosinophils/100 WBC Auto (Bld)on 08-05-2024 Eosinophils/100 WBC (Bld)Automated eosinophil %0.9-7.0[facility] HospitalErythrocyte distribution width Auto (RBC) [Ratio]on 72-32-5519Xpuueadwcty distribution width (RBC) [Ratio]Erythrocyte distribution width [Ratio] by Automated count11.0-15.0[facility] HospitalEstimated glomerular filtration rate (GFR) non- Americanon 51-42-6524BWR/1.73 sq M.predicted among non-blacks MDRD (S/P/Bld) [Vol rate/Area]Estimated glomerular filtration rate (GFR) non->=60 mL/min/1.73m 2FSt. Francis HospitalGlobulin Calc (S) [Mass/Vol]on 32-21-7580Yfvggypy (S) [Mass/Vol]Serum globulin measurement by calculation (mass/volume)[facility] HospitalHematocrit Auto (Bld) [Volume fraction]on 61-14-4599Pnxezizhad (Bld) [Volume fraction]Hematocrit [Volume Fraction] of Blood by Automated count 36.0-48.0[facility] HospitalHemoglobin [Mass/volume] in Bloodon 11-83-3967Ffutpnvtpr (Bld) [Mass/Vol]Hemoglobin [Mass/volume] in Blood12.0-16.0 [facility] HospitalINR in Platelet poor plasma by Coagulation assayon 96-45-2019EQO Coag (PPP) [Relative time]INR in Platelet poor plasma by Coagulation assaySelect Medical Ohiohealth Rehabilitation HospitalComment on above:DESIRED INR:2.0-3.0 CONDITIONS NOT LISTED BELOW2.5-3.5 FOR PROSTHETIC HEART VALVE REPLACEMENT2.5-3.5 RECURRENT THROMBOSISLaboratory - Chemistry and Chemistry - challengeon 13-36-9700Pwbyvlh [Mass/Vol]3.7 g/dL3.4-5.0[facility] HospitalALP [Catalytic activity/Vol]91 U/Q21-587KdrojnjkuSelect Medical [facility] Rehabilitation HospitalALT [Catalytic activity/Vol]20 U/U43-76MyuspvfxaSelect Medical [facility] Hospital AST [Catalytic activity/Vol]20 U/C23-23ZrbflevzdSelect Medical [facility] Hospital Bilirubin [Mass/Vol]0.4 mg/dL0.2-1.0[facility] HospitalCalcium [Mass/Vol]10.0 mg/dL8.5-10.1FSt. Francis HospitalChloride [Moles/Vol]102 mmol/A26-392AbnepksgsSelect Medical [facility]health Rehabilitation HospitalCO2 [Moles/Vol]28.1 mmol/L21.0-32.0[facility] HospitalCreatinine [Mass/Vol]0.81 mg/dL 0.55-1.02[facility] HospitalGFR/1.73 sq M.predicted MDRD (S/P/Bld) [Vol rate/Area]mL/min/{1.73_m2}>=60 mL/min/1.73m 2FSt. Francis HospitalGlucose [Mass/Vol]146 mg/cLVgpi19-714IrtbyjgtxSelect Medical [facility] Hospital Magnesium [Mass/Vol]1.7 mg/dLLow1.8-2.4FSt. Francis Hospital Natriuretic peptide B (Bld) [Mass/Vol]56.0 pg/mL<=900.0[facility] HospitalPotassium [Moles/Vol]4.7 mmol/L3.5-5.1FSt. Francis HospitalProtein [Mass/Vol]7.4 g/dL6.4-8.2FAdams County Regional Medical Centerodium [Moles/Vol]138 mmol/H517-239EdrrtqltwSelect Medical [facility]health Rehabilitation HospitalUrea nitrogen [Mass/Vol]21.0 mg/dLHigh7.0-18.0[facility] HospitalUrea nitrogen/Creatinine [Mass ratio]25.9 mg/mgSelect Medical [facility] Laboratory - Hematology and Cell countson 53-79-4465Snqhamgh granulocytes/100 WBC (Bld)0.7 %High0.0-0.5FSt. Francis HospitalLaboratory - Microbiology and Antimicrobial susceptibilityon 51-22-6305VXFU-CoV-2 (COVID-19) RNA ARIADNA+probe Ql (Unsp spec)NegativeNEGATIVESelect Medical [facility] Comment on above:This test has not been [...] nucleated erythrocytes in Blood by Automated counon 35-75-6869GYA corrected for nucl RBC Auto (Bld) [#/Vol]Leukocytes [#/volume] corrected for nucleated erythrocytes in Blood by Automated coun4.0-11.0[facility] Lymphocytes Auto (Bld) [#/Vol]on 59-71-2542Wzrnmdtlctz (Bld) [#/Vol]Lymphocytes [#/volume] in Blood by Automated count1.2-3.8[facility] Lymphocytes/100 WBC Auto (Bld)on 11-96-0865Whmtgnaectu/100 WBC (Bld) Lymphocytes/100 leukocytes in Blood by Automated count20.5-60.0[facility] Auto (RBC) [Entitic mass]on 09-49-6390KQL (RBC) [Entitic mass]MCH [Entitic mass] by Automated count26.7-34.0[facility] Auto (RBC) [Mass/Vol]on 91-02-9112BPVZ (RBC) [Mass/Vol]MCHC [Mass/volume] by Automated count29.9-35.2FSt. Francis HospitalMCV Auto (RBC) [Entitic vol]on 47-92-1036MYC (RBC) [Entitic vol]MCV [Entitic volume] by Automated count81.0-99.0[facility] HospitalMonocytes Auto (Bld) [#/Vol]on 78-32-1789Gdzrstjxr (Bld) [#/Vol]Automated blood monocyte count0.3-0.8 [facility] HospitalMonocytes/100 WBC Auto (Bld)on 08-05-2024 Monocytes/100 WBC (Bld)Automated monocyte %1.7-12.0[facility] HospitalNeutrophils Auto (Bld) [#/Vol]on 07-56-1290Rvorkxhuflx (Bld) [#/Vol] Neutrophils [#/volume] in Blood by Automated count1.4-6.5FSt. Francis HospitalNeutrophils/100 WBC Auto (Bld)on 28-42-5497Mklhmeywzty/100 WBC (Bld)Automated neutrophil %43.0-75.0[facility] HospitalNo Panel Informationon 62-21-5419Biliqnns I High Sensitivity7.6 pg/mL4.0-51.3FSt. Francis HospitalComment on above:CUT-OFF POINTS HAVE BEEN ESTABLISHED BASED [...] DIAGNOSTIC AND CLINICAL INFORMATION.Eosinophils # (Auto)0.5 10 3/uL0.0-0.7FSt. Francis HospitalImmature Granulocyte # (Auto)0.07 10 3/uLHigh0.00-0.03[facility] HospitalPlatelet mean volume Auto (Bld) [Entitic vol]on 51-79-7410Tzhwdvnm mean volume (Bld) [Entitic vol]Platelet mean volume [Entitic volume] in Blood by Automated count9.5-13.5 [facility] HospitalPlatelets Auto (Bld) [#/Vol]on 08-05-2024 Platelets (Bld) [#/Vol]Platelets [#/volume] in Blood by Automated -733 [facility] HospitalProthrombin time (PT)on 10-48-9774RW Coag (PPP) [Time]Prothrombin time (PT)9.0-11.6FSt. Francis HospitalRBC Auto (Bld) [#/Vol]on 30-36-7244SVN (Bld) [#/Vol]Erythrocytes [#/volume] in Blood by Automated count4.20-5.40[facility] Hospitalerum or plasma albumin/globulin mass ratioon 23-18-5932Xljuekp/Globulin [Mass ratio]Serum or plasma albumin/globulin mass ratioDetwiler Memorial Hospitalerum or plasma anion gap determinationon 04-60-2338Nwdhs gap [Moles/Vol]Serum or plasma anion gap determinationSelect Medical [facility]health Rehabilitation HospitalBlood Urea Nitrogenon 06-45-3285Qmac nitrogen [Mass/Vol]20 mg/dLNormal7-25[facility] Physician GroupComment on above:Order Comment: STAT FOR CTPerformed By: #### BUN, CREAT #### [place] [address] USACT abdomen pelvis w conon 76-40-0209LR abdomen pelvis w [facility] [place] [address] [place] [address] CT Scan Report Signed Patient: Canelo Pathak MR#: [id number] 4 : 1965 Acct:[id number] Age/Sex: 58 / F ADM Date: 07/30/24 Loc: CT Room: Type: [facility] Attending Dr: Carol Alegria DO Copies to: [...] Cameron Worthy M.D.07/30/2024 1:18 PM Dictation Location: [place] [address] Transcribed By: [facility] 07/30/24 1318 Dictated By: Cameron Worthy MD 07/30/24 1314 Signed By: 07/30/24 1318NoRandolph Health Physician GroupCreatinadventhealth murray 07-30-2024 Creatinine [Mass/Vol]0.85 mg/dLNormal0.60-1.20[facility] Comment on above:Order Comment: STAT FOR CTPerformed By: #### BUN, CREAT #### [facility] [address] [place] [address] USAGFR/1.73 sq M.predicted MDRD (S/P/Bld) [Vol rate/Area] mL/min/{1.73_m2}NormalThe Northern Regional Hospital Physician GroupComment on above:Order Comment: STAT FOR CTResult Comment: PERFORMED BY: [place] [address] PATHOLOGIST LAYOUT INSPECTOR JERRI ROMERO M.D.Performed By: #### BUN, CREAT #### [facility] [address] [place] [address] USACreatinine [Mass/volume] in Serum or PlasmaOrdered By: Carol Alegria on 65-01-1543Dwqbixhpue [Mass/Vol]Creatinine [Mass/volume] in Serum or Plasma0.60-1.20[facility] HospitalNo Panel InformationOrdered By: Carol Alegria on 42-20-8348Cdyneqcfe GFR (CKD-EPI)> 60.0 mL/MinSelect Medical Ohiohealth Rehabilitation HospitalPharmacy Creatinine Clearance (ChemN/AFSt. Francis HospitalUrea nitrogen [Mass/volume] in Serum or PlasmaOrdered By: Carol Alegria on 99-29-2714Slsz nitrogen [Mass/Vol]Urea nitrogen [Mass/volume] in Serum or Plasma7-[facility] HospitalBasophils Auto (Bld) [#/Vol]on 35-54-2385Odhkwfzls (Bld) [#/Vol]0.1 10 3/uL0.0-0.1FSt. Francis HospitalBasophils (Bld) [#/Vol]Automated basophil count0.0-0.1FSt. Francis HospitalBaphils/100 WBC Auto (Bld)on 97-25-7405Tvbuqgrrv/100 WBC (Bld)0.9 %0.2-2.0[facility] HospitalBasophils/100 WBC (Bld) Automated basophil %0.2-2.0[facility] HospitalCholesterol in LDL Calc [Mass/Vol]on 42-61-5244Juljtfbqexj in LDL [Mass/Vol]87.0 mg/dLSelect Medical Ohiohealth Rehabilitation HospitalComment on above:<100 mg/dl AIENZGH765-475 mg/dl NEAR OR ABOVE GJDCMAG053-179 mg/dl BORDERLINE APNO565-201 mg/dl HIGH>190 mg/dl VERY HIGH Cholesterol in LDL [Mass/Vol]Cholesterol in LDL [Mass/volume] in Serum or Plasma by calculationSelect Medical Ohiohealth Rehabilitation HospitalComment on above:<100 mg/dl KFQYJQW347-972 mg/dl NEAR OR ABOVE WSJOZGR969-485 mg/dl BORDERLINE VXBM868-711 mg/dl HIGH>190 mg/dl VERY HIGHCholesterol in VLDL Calc [Mass/Vol]on 03-20-2024 Cholesterol in VLDL [Mass/Vol]15.0 mg/dLSelect Medical [facility]health Rehabilitation Hospital Cholesterol in VLDL [Mass/Vol]Cholesterol in VLDL [Mass/volume] in Serum or Plasma by calculationSelect Medical Ohiohealth Rehabilitation HospitalEosinophils/100 WBC Auto (Bld)on 80-19-9506Cmyryvtkpax/100 WBC (Bld)3.3 %0.9-7.0[facility] HospitalEosinophils/100 WBC (Bld)Automated eosinophil %0.9-7.0[facility] HospitalErythrocyte distribution width Auto (RBC) [Ratio]on 86-77-5989Fcyvqzumosm distribution width (RBC) [Ratio]12.4 %11.0-15.0[facility] HospitalErythrocyte distribution width (RBC) [Ratio]Erythrocyte distribution width [Ratio] by Automated count11.0-15.0[facility] HospitalEstimated glomerular filtration rate (GFR) non- Americanon 80-12-4471DFK/1.73 sq M.predicted among non-blacks MDRD (S/P/Bld) [Vol rate/Area]mL/min/{1.73_m2}>=60 mL/min/1.73m 2FSt. Francis Hospital GFR/1.73 sq M.predicted among non-blacks MDRD (S/P/Bld) [Vol rate/Area]Estimated glomerular filtration rate (GFR) non->=60 mL/min/1.73m 2 [facility] HospitalGlobulin Calc (S) [Mass/Vol]on 03-20-2024 Globulin (S) [Mass/Vol]3.3 g/dLSelect Medical Ohiohealth Rehabilitation HospitalGlobulin (S) [Mass/Vol]Serum globulin measurement by calculation (mass/volume)[facility] HospitalGlucose mean value [Mass/volume] in Blood Estimated from glycated hemoglobinon 33-06-4591Hsaolbv glucose Estimated from glycated hemoglobin (Bld) [Mass/Vol]140 mg/dLSelect Medical Ohiohealth Rehabilitation HospitalAverage glucose Estimated from glycated hemoglobin (Bld) [Mass/Vol]Glucose mean value [Mass/volume] in Blood Estimated from glycated hemoglobinSelect Medical Ohiohealth Rehabilitation HospitalHematocrit Auto (Bld) [Volume fraction]on 67-22-5671Qeoasvplju (Bld) [Volume fraction]39.9 %36.0-48.0[facility] Hematocrit (Bld) [Volume fraction]Hematocrit [Volume Fraction] of Blood by Automated count36.0-48.0[facility] HospitalHemoglobin [Mass/volume] in Bloodon 48-22-6311Tcajmhdtjf (Bld) [Mass/Vol]13.2 g/dL12.0-16.0 [facility] HospitalHemoglobin (Bld) [Mass/Vol]Hemoglobin [Mass/volume] in Blood12.0-16.0[facility] HospitalLaboratory - Chemistry and Chemistry - challengeon 50-46-3863Fcoljhp [Mass/Vol]3.3 g/dLLow 3.4-5.0[facility] HospitalALP [Catalytic activity/Vol]72 U/L46-116 [facility] HospitalALT [Catalytic activity/Vol]22 U/L14-59 [facility] HospitalAST [Catalytic activity/Vol]11 U/MTnj13-46 [facility] HospitalBilirubin [Mass/Vol]0.4 mg/dL0.2-1.0[facility] HospitalCalcium [Mass/Vol]9.0 mg/dL8.5-10.1FSt. Francis HospitalChloride [Moles/Vol]105 mmol/U10-382KhpmbuvfhSelect Medical Ohiohealth Rehabilitation HospitalCholesterol [Mass/Vol]174 mg/dL<=200[facility] Cholesterol in HDL [Mass/Vol]72 mg/rFHxtg42-75GvackmtstSelect Medical [facility] Rehabilitation Hospital Comment on above:> or =60 mg/dl - LOW CARDIOVASCULAR RISK<40 mg/dl - HIGH CARDIOVASCULAR RISKCO2 [Moles/Vol]28.6 mmol/L21.0-32.0[facility] HospitalCreatinine [Mass/Vol]0.89 mg/dL0.55-1.02[facility] Free T4 [Mass/Vol]1.53 ng/dLHigh0.76-1.46[facility] GFR/1.73 sq M.predicted MDRD (S/P/Bld) [Vol rate/Area]mL/min/{1.73_m2}>=60 mL/min/1.73m 2FSt. Francis HospitalGlucose [Mass/Vol]119 mg/dLHigh 74-106[facility] HospitalPotassium [Moles/Vol]4.1 mmol/L3.5-5.1 [facility] HospitalProtein [Mass/Vol]6.6 g/dL6.4-8.2FAdams County Regional Medical Centerodium [Moles/Vol]143 mmol/L972-452RxblwepaxSelect Medical [facility]health Rehabilitation HospitalTriglyceride [Mass/Vol]75 mg/dL<=150[facility] HospitalTSH Qn1.000 m[IU]/L0.358-3.740[facility] HospitalUrea nitrogen [Mass/Vol]18.0 mg/dL7.0-18.0[facility] HospitalUrea nitrogen/Creatinine [Mass ratio]20.2 mg/mgSelect Medical [facility] Hospital Laboratory - Hematology and Cell countson 51-21-5225IwD6a (Bld) [Mass fraction] 6.5 %High4.5-6.2FSt. Francis HospitalComment on above:ADA RECOMMENDED LIMIT 4.0 - 6.0ADA THERAPEUTIC TARGET < 7.0ACTION SUGGESTED> 7.0 Immature granulocytes/100 WBC (Bld)0.2 %0.0-0.5FSt. Francis Hospital Leukocytes [#/volume] corrected for nucleated erythrocytes in Blood by Automated counon 29-70-9677VFL corrected for nucl RBC Auto (Bld) [#/Vol]8.5 10 3/uL 4.0-11.0[facility] HospitalWBC corrected for nucl RBC Auto (Bld) [#/Vol]Leukocytes [#/volume] corrected for nucleated erythrocytes in Blood by Automated coun4.0-11.0[facility] HospitalLymphocytes Auto (Bld) [#/Vol]on 84-75-7742Mgsulflnbzm (Bld) [#/Vol]2.3 10 3/uL1.2-3.8[facility] HospitalLymphocytes (Bld) [#/Vol]Lymphocytes [#/volume] in Blood by Automated count1.2-3.8[facility] HospitalLymphocytes/100 WBC Auto (Bld)on 66-71-8017Ejhrrclhsxi/100 WBC (Bld)26.5 %20.5-60.0[facility] HospitalLymphocytes/100 WBC (Bld)Lymphocytes/100 leukocytes in Blood by Automated count20.5-60.0[facility] Auto (RBC) [Entitic mass]on 07-69-5095EGX (RBC) [Entitic mass]31.0 pg26.7-34.0[facility] (RBC) [Entitic mass]MCH [Entitic mass] by Automated count26.7-34.0City HospitalHC Auto (RBC) [Mass/Vol]on 28-82-1093LOZF (RBC) [Mass/Vol]33.1 g/dL29.9-35.2FOhio State University Wexner Medical CenterHC (RBC) [Mass/Vol]MCHC [Mass/volume] by Automated count29.9-35.2 City HospitalV Auto (RBC) [Entitic vol]on 66-46-0088WXC (RBC) [Entitic vol]93.7 fL81.0-99.0City HospitalV (RBC) [Entitic vol]MCV [Entitic volume] by Automated count81.0-99.0[facility] HospitalMonocytes Auto (Bld) [#/Vol]on 32-04-7722Wltvnuvbd (Bld) [#/Vol] 0.6 10 3/uL0.3-0.8[facility] HospitalMonocytes (Bld) [#/Vol] Automated blood monocyte count0.3-0.8[facility] Monocytes/100 WBC Auto (Bld)on 19-34-6506Vtkuxfuwi/100 WBC (Bld)6.4 %1.7-12.0 [facility] HospitalMonocytes/100 WBC (Bld)Automated monocyte % 1.7-12.0[facility] HospitalNeutrophils Auto (Bld) [#/Vol]on 44-14-1455Btokfhszuba (Bld) [#/Vol]5.4 10 3/uL1.4-6.5FSt. Francis HospitalNeutrophils (Bld) [#/Vol]Neutrophils [#/volume] in Blood by Automated count1.4-6.5FSt. Francis HospitalNeutrophils/100 WBC Auto (Bld)on 36-13-2573Yyhccxfpgmj/100 WBC (Bld)62.7 %43.0-75.0[facility] HospitalNeutrophils/100 WBC (Bld)Automated neutrophil %43.0-75.0[facility] HospitalNo Panel Informationon 00-55-684950538309-Fgjkurl Vitamin D Total36.0 ng/mLSelect Medical [facility] Rehabilitation HospitalComment on above:<20 ng/mL Vit D rweypludl69-<30 ng/mL Vit D qhfktrujxokt81-897 ng/mL Vit D sufficient>100 ng/mL Potential ToxicityEosinophils # (Auto)0.3 10 3/uL0.0-0.7FSt. Francis HospitalImmature Granulocyte # (Auto)0.02 10 3/uL0.00-0.03[facility] HospitalTotal Spufsnlxthzcrumi77 ng/hA31-634PnprgucvySelect Medical Ohiohealth Rehabilitation HospitalComment on above:Performed at: [employer] [address] [id number] Director: Giuseppe Newell PhD, Phone: [phone] Platelet mean volume Auto (Bld) [Entitic vol]on 40-96-0974Aoctlknk mean volume (Bld) [Entitic vol]9.5 fL9.5-13.5FSt. Francis HospitalPlatelet mean volume (Bld) [Entitic vol]Platelet mean volume [Entitic volume] in Blood by Automated count9.5-13.5FSt. Francis HospitalPlatelets Auto (Bld) [#/Vol]on 94-63-7683Cyvrqxosg (Bld) [#/Vol]364 10 3/wV232-281XqwkmgmobSelect Medical Ohiohealth Rehabilitation HospitalPlatelets (Bld) [#/Vol]Platelets [#/volume] in Blood by Automated -334LingvcrstSelect Medical Ohiohealth Rehabilitation HospitalRBC Auto (Bld) [#/Vol]on 03-20-2024 RBC (Bld) [#/Vol]4.26 10 6/uL4.20-5.40[facility] HospitalRBC (Bld) [#/Vol]Erythrocytes [#/volume] in Blood by Automated count4.20-5.40Detwiler Memorial Hospitalerum or plasma albumin/globulin mass ratioon 03-20-2024 Albumin/Globulin [Mass ratio]1.0 {ratio}[facility] Albumin/Globulin [Mass ratio]Serum or plasma albumin/globulin mass ratio [facility] Hospitalerum or plasma anion gap determinationon 98-67-9504Gqxvj gap [Moles/Vol]13.5 mmol/LFSt. Francis HospitalAnion gap [Moles/Vol]Serum or plasma anion gap determinationDetwiler Memorial Hospitalerum or plasma total cholesterol/high density lipoprotein (HDL) cholesterol mass constantin 87-74-0441Mdamonyksdk.total/Cholesterol in HDL [Mass ratio]2.4 {ratio}[facility] HospitalComment on above:3.3 - 4.4 LOW RISK4.4 - 7.1 AVERAGE RISK7.1 - 11.0 MODERATE RISK>11.0 HIGH RISK Cholesterol.total/Cholesterol in HDL [Mass ratio]Serum or plasma total cholesterol/high density lipoprotein (HDL) cholesterol mass [facility] HospitalComment on above:3.3 - 4.4 LOW RISK4.4 - 7.1 AVERAGE RISK7.1 - 11.0 MODERATE RISK>11.0 HIGH RISKGastroenterology Office/Clinic Noteon 41-71-8629Vcluqowjfkvailiu Office/Clinic NoteChief Complaint Followup for abd pain, chest pain, vomiting, diarrhea History of Present Illness Patient presents to GI clinic for a followup for abdominal pain radiating to chest pain, vomiting and diarrhea. KATIANA was 06/26/22 Continues to have persistent acid reflux despite Nexium 40 mg daily. Has anywhere from 5-10 stools per day type on [place] stool scale form, urgent and explosive to [...] water, # 120 tabs, 0 Refill(s), Pharmacy: [facility]/pharmacy #[id number] esomeprazole, 1 caps, Oral, BID, # 180 caps, 0 Refill(s), Pharmacy: [facility]/pharmacy #[id number] ondansetron, 1 tabs, Oral, q8hr, PRN, # 60 tabs, 0 Refill(s), Pharmacy: [facility]/pharmacy #[id number] polyethylene glycol 3350 with electrolytes, See Instructions, for colonoscopy prep, # 4,000 mL, 0 Refill(s), Pharmacy: [facility]/pharmacy #[id number] 1. Diarrhea s/p cholecystectomy - check CBC/CMP/ttg [...] of adequate bowel prep and need for bung driver to accompany day of procedure, verbalizes [...] Ongoing Asthma Endometriosis Fibromyalg (more content not included)...[facility] HospitalXR hips BI 4V adulton 48-93-1476GD hips BI 4V [facility] [address] [address] XRay Report Signed Patient: Canelo Pathak MR#: [id number] 4 : 1965 Acct:[id number] Age/Sex: 58 / F ADM Date: 12/05/23 Loc: XD Room: Type: [facility] Attending Dr: Logan Brown MD Copies [...] Omid Seals M.D.12/05/2023 5:09 PM Dictation Location: [place] [address] Transcribed By: [facility] 12/05/231708 Dictated By: Omid Seals DO 12/05/231707 Signed By: 12/05/23 1709[facility] Physician GroupXR lumbar spine AP/LAT/FLX/EXTon 17-28-1891BH lumbar spine AP/LAT/FLX/EXTM[facility] Main [place] [address] [place] [address] XRay Report Signed Patient: Canelo Pathak MR#: [id number] 4 : 1965 Acct:[id number] Age/Sex: 58 / F ADM Date: 12/05/23 Loc: XD Room: Type: [facility] Attending Dr: Logan Brown MD Copies to: Logan Brown MD Ordering Provider: oLgan Brown MD Date of Service: 12/05/23 XR/XR [...] Omid Seals M.D.12/05/2023 5:08 PM Dictation Location: [facility]08 Transcribed By: [facility] 12/05/231707 Dictated By: Omid Seals DO 12/05/231705 Signed By: 12/05/231707[facility] Physician GroupEstimated glomerular filtration rate (GFR) non- Americanon 39-16-1045DQQ/1.73 sq M.predicted among non- blacks MDRD (S/P/Bld) [Vol rate/Area]mL/min/{1.73_m2}>=60[facility] HospitalLaboratory - Chemistry and Chemistry - challengeon 10-25-2023 Calcium [Mass/Vol]9.3 mg/dL8.5-10.1FSt. Francis HospitalChloride [Moles/Vol]103 mmol/C11-703QsjoampmsSelect Medical [facility] Rehabilitation HospitalCO2 [Moles/Vol]29.7 mmol/L21.0-32.0[facility] HospitalCreatinine [Mass/Vol]0.88 mg/dL 0.55-1.02[facility] HospitalFree T4 [Mass/Vol]1.33 ng/dL0.76-1.46 [facility] HospitalGFR/1.73 sq M.predicted MDRD (S/P/Bld) [Vol rate/Area]mL/min/{1.73_m2}>=60[facility] HospitalGlucose [Mass/Vol]121 mg/ySDibs45-587KguztlrdfSelect Medical [facility] Rehabilitation HospitalPotassium [Moles/Vol]4.4 mmol/L3.5-5.1FAdams County Regional Medical Centerodium [Moles/Vol] 140 mmol/I866-646JjfdizxybSelect Medical [facility] Rehabilitation HospitalTSH Qn5.994 m[IU]/LHigh 0.358-3.740[facility] HospitalUrea nitrogen [Mass/Vol]18.0 mg/dL 7.0-18.0[facility] HospitalUrea nitrogen/Creatinine [Mass ratio] 20.5 mg/mgSelect Medical [facility] Rehabilitation HospitalNo Panel Informationon 10-25-2023 Total Hpwsfqifdnyrsogx756 ng/lW23-665PwdiadqzuSelect Medical [facility] Rehabilitation HospitalComment on above:Performed at: [facility] Lab[address] [id number] Director: Giuseppe Newell PhD, Phone: [phone] or plasma anion gap determinationon 17-36-0114Yonft gap [Moles/Vol]11.7 mmol/LFSt. Francis HospitalPatient Correspondenceon 80-85-0027Dhuaigo Correspondence [id number]#1.00TIFFOhioHealth Riverside Methodist HospitalMRI HEAD/BRAIN WO/W CONTRon 17-81-6706[place] [address] Magnetic Resonance Report Signed Patient: CANELO PATHAK MR#: [id number] : 1965 Acct:[id number] Age/Sex: 58 / F ADM Date: 10/09/23 Loc: MRI Attending Dr: Jennie Jiang M.D. Ordering Physician: Jennie Jiang M.D. Date of Service: 10/09/23 Procedure(s): MR head/brain wo/w con Accession Number(s): [id number] cc: JEFF JON ; Jennie Jiang M.D. [place] [address] Patient Name: CANELO PATHAK MRN: [id number] date: 1965 Sex: F Assigned Patient Location: MRI Current Patient Location: MRI Accession/Order Number: [id number] Exam Date: 10/09/2023 12:50 Report Date: 10/09/2023 21:15 At the request of: JENNIE JIANG Procedure: MR head/brain wo/w con MR head/brain [...] mastoid air cells. Electronically authenticated by: RAMIREZ SETHI Date: 10/09/2023 21:15 Dictated By: Ramirez Sethi M.D. Signed By: 10/09/232117 DD/ 14 TD/TT: Professor Of Vegetable Science:TBHRadiology, Radiologist, - 10/09/2023 [place] [address] Magnetic Resonance Report Signed Patient: CANELO PATHAK MR#: [id number] : 1965 Acct:[id number] Age/Sex: 58 / F ADM Date: 10/09/23 Loc: MRI Attending Dr: Jennie Jiang M.D. Ordering Physician: Jennie Jiang M.D. Date of Service: 10/09/23 Procedure(s): MR head/brain wo/w con Accession Number(s): [id number] cc: JEFF JON ; Jennie Jiang M.D. The [place] [id number] Patient Name: CANELO PATHAK MRN: [id number] date: 1965 Sex: F Assigned Patient Location: MRI Current Patient Location: MRI Accession/Order Number: [id number] Exam Date: 10/09/2023 12:50 Report Date: 10/09/2023 21:15 At the request of: JENNIE JIANG Procedure: MR head/brain wo/w con MR head/brain [...] mastoid air cells. Electronically authenticated by: RAMIREZ SETHI Date: 10/09/2023 21:15 Dictated By: Ramirez Sethi M.D. Signed By: 10/09/232117 DD/ 14 TD/TT: Professor Of Vegetable Science: SIGIFREDO HealthcareRadiology Study observation (narrative)[facility] HospitalMRI HEAD/BRAIN WO/W CONTROrdered By: Radiologist Radiology on 99-60-6512[employer] Work Phone: ct Internal auditory canal W contrast Marci 09-04-[address] [address] [address] Scan Report Signed Patient: CANELO PATHAK MR#: [id number] : 1965 Acct:[id number] Age/Sex: 57 / F ADM Date: 09/04/23 Loc: CT Attending Dr: Jennie Jiang M.D. Ordering Physician: Jennie Jiang M.D. Date of Service: 09/04/23 Procedure(s): CT int auditory canals w con Accession Number(s): [id number] cc: JEFF JON [place] [address] [place] [id number] Patient Name: CANELO PATHAK MRN: [facility]:[id number] date: 1965 Sex: F Assigned Patient Location: CT Current Patient Location: CT Accession/Order Number: [id number] Exam Date: 09/04/2023 13:20 Report Date: 09/04/2023 16:52 At the request of: JENNIE JIANG Procedure: CT int auditory canals w con [...] M.D. Signed By: 09/04/231653 DD/ 51 TD/TT: Professor Of Vegetable Science:MELISAHRadiology, Radiologist, - 09/04/2023 [place] [address] CT Scan Report Signed Patient: CANELO PATHAK MR#: [id number] : 1965 Acct:[id number] Age/Sex: 57 / F ADM Date: 09/04/23 Loc: CT Attending Dr: Jennie Jiang M.D. Ordering Physician: Jennie Jiang M.D. Date of Service: 09/04/23 Procedure(s): CT int auditory canals w con Accession Number(s): [id number] cc: JEFF JON [place] [address] Patient Name: CANELO PATHAK MRN: [id number] date: 1965 Sex: F Assigned Patient Location: CT Current Patient Location: CT Accession/Order Number: [id number] Exam Date: 09/04/2023 13:20 Report Date: 09/04/2023 16:52 At the request of: JENNIE JIANG Procedure: CT int auditory canals w con [...] M.D. Signed By: 09/04/231653 DD/ 51 TD/TT: Professor Of Vegetable Science: SIGIFREDO HealthcareRadiology Study observation (narrative)[facility] HealthcareCT Internal auditory canal W contrast IVOrdered By: Radiologist Radiology on 28-15-0611TBSL [employer] Work Phone: automated epithelial cells count in urine sediment (number/area)on 87-11-2372Zkfamranys cells Auto (Urine sed) [#/Area]RARE #/LPF NONE/RARESelect Medical [facility] Rehabilitation HospitalAutomated leukocytes count in urine sediment (number/area)on 77-77-8022BLZ Auto (Urine sed) [#/Area]0-2 #/HPF0-2 [facility] HospitalAutomated urine specific gravity by refractometryon 61-12-8769Jwcnweet gravity Refractometry automated (U) [Rel density]>=1.0301.005-1.025[facility] HospitalBasophils Auto (Bld) [#/Vol]on 72-50-7908Msfoqsubd (Bld) [#/Vol]0.1 10 3/uL0.0-0.1FSt. Francis HospitalBasophils/100 WBC Auto (Bld)on 70-47-9347Kifliszes/100 WBC (Bld) 1.4 %0.2-2.0[facility] HospitalBilirubin Auto test strip (U) [Mass/Vol]on 03-58-0505Haikbltcu (U) [Mass/Vol]NegativeNEGATIVESelect Medical [facility]health Rehabilitation HospitalCast typing in urine sediment by light microscopyon 10-29-6872Zgefr LM Nom (Urine sed)NONE SEEN #/LPFNONE SEENSelect Medical [facility] Rehabilitation HospitalCholesterol in LDL Calc [Mass/Vol]on 01-05-6963Vctbujmepzl in LDL [Mass/Vol]101.0 mg/dLSelect Medical Ohio[facility] Rehabilitation HospitalComment on above:<100 mg/dl RVHKYXY243-375 mg/dl NEAR OR ABOVE ZSRXLJZ684-848 mg/dl BORDERLINE WJBU174-122 mg/dl HIGH>190 mg/dl VERY HIGHCholesterol in VLDL Calc [Mass/Vol]on 86-09-8681Vzeqxxyykfl in VLDL [Mass/Vol]25.0 mg/dLSelect Medical [facility] Rehabilitation HospitalColor Auto (U)on 55-42-8479Ksrok (U)YELLOWYELLOWSelect Medical [facility] Rehabilitation HospitalEosinophils/100 WBC Auto (Bld)on 26-15-8010Ukexyivkbjg/100 WBC (Bld)5.2 % 0.9-7.0[facility] HospitalErythrocyte distribution width Auto (RBC) [Ratio]on 13-63-8664Mtgbrexejpm distribution width (RBC) [Ratio]12.1 % 11.0-15.0[facility] HospitalEstimated glomerular filtration rate (GFR) non- Americanon 60-29-2089VWG/1.73 sq M.predicted among non-blacks MDRD (S/P/Bld) [Vol rate/Area]mL/min/{1.73_m2}>=60[facility] HospitalGlobulin Calc (S) [Mass/Vol]on 69-43-2077Tdqtnwlh (S) [Mass/Vol]3.3 g/dL [facility] HospitalGlucose mean value [Mass/volume] in Blood Estimated from glycated hemoglobinon 47-81-0388Dxtxcdx glucose Estimated from glycated hemoglobin (Bld) [Mass/Vol]143 mg/dLSelect Medical [facility] Hospital Hematocrit Auto (Bld) [Volume fraction]on 40-23-6956Spfjpwdjwj (Bld) [Volume fraction]41.2 %36.0-48.0[facility] HospitalHemoglobin [Mass/volume] in Bloodon 69-59-2834Yqswnnnjks (Bld) [Mass/Vol]13.6 g/dL12.0-16.0 [facility] HospitalKetones Auto test strip (U) [Mass/Vol]on 43-89-8429Cpyfcgw (U) [Mass/Vol]NegativeNEGATIVESelect Medical [facility] Rehabilitation HospitalLaboratory - Chemistry and Chemistry - challengeon 39-86-8308Vjtzvtp [Mass/Vol]3.8 g/dL3.4-5.0[facility] HospitalALP [Catalytic activity/Vol]72 U/D51-086JzrevdryfSelect Medical [facility] Rehabilitation HospitalALT [Catalytic activity/Vol]25 U/X30-30HpihctrnaSelect Medical [facility]health Rehabilitation HospitalAST [Catalytic activity/Vol]14 U/F47-28ByoqjmiviSelect Medical [facility] Rehabilitation HospitalBilirubin [Mass/Vol]0.5 mg/dL0.2-1.0[facility] HospitalCalcium [Mass/Vol]9.1 mg/dL 8.5-10.1FSt. Francis HospitalChloride [Moles/Vol]103 mmol/L98-107 [facility] HospitalCholesterol [Mass/Vol]193 mg/dL<=200[facility] HospitalCholesterol in HDL [Mass/Vol]67 mg/yP17-12FblvneplbSelect Medical Ohiohealth Rehabilitation HospitalComment on above:> or =60 mg/dl - LOW CARDIOVASCULAR RISK<40 mg/dl - HIGH CARDIOVASCULAR RISKCO2 [Moles/Vol]28.7 mmol/L21.0-32.0 [facility] HospitalCreatinine [Mass/Vol]0.77 mg/dL0.55-1.02 [facility] HospitalFree T4 [Mass/Vol]1.11 ng/dL0.76-1.46[facility] HospitalGFR/1.73 sq M.predicted MDRD (S/P/Bld) [Vol rate/Area] mL/min/{1.73_m2}>=60[facility] HospitalGlucose [Mass/Vol]117 mg/dL 74-106[facility] HospitalPotassium [Moles/Vol]4.2 mmol/L3.5-5.1 [facility] HospitalProtein [Mass/Vol]7.1 g/dL6.4-8.2FAdams County Regional Medical Centerodium [Moles/Vol]142 mmol/Z367-844YbbaluusaSelect Medical Ohiohealth Rehabilitation HospitalTriglyceride [Mass/Vol]125 mg/dL<=150[facility] HospitalTSH Qn18.751 m[IU]/L0.358-3.740[facility] HospitalUrea nitrogen [Mass/Vol]19.0 mg/dL7.0-18.0[facility] HospitalUrea nitrogen/Creatinine [Mass ratio]24.7 mg/mgSelect Medical [facility] Rehabilitation Hospital Laboratory - Hematology and Cell countson 10-67-4260SaT0t (Bld) [Mass fraction] 6.6 %4.5-6.2FSt. Francis HospitalComment on above:ADA RECOMMENDED LIMIT 4.0 - 6.0ADA THERAPEUTIC TARGET < 7.0ACTION SUGGESTED> 7.0Immature granulocytes/100 WBC (Bld)0.3 %0.0-0.5FSt. Francis Hospital Leukocytes [#/volume] corrected for nucleated erythrocytes in Blood by Automated counon 07-51-8035KEK corrected for nucl RBC Auto (Bld) [#/Vol]7.4 10 3/uL 4.0-11.0[facility] HospitalLymphocytes Auto (Bld) [#/Vol]on 33-82-7228Umeeyuqsxak (Bld) [#/Vol]2.2 10 3/uL1.2-3.8[facility] HospitalLymphocytes/100 WBC Auto (Bld)on 20-55-6839Sszcwoegimu/100 WBC (Bld)29.7 % 20.5-60.0City HospitalH Auto (RBC) [Entitic mass]on 72-47-3186QDC (RBC) [Entitic mass]31.3 pg26.7-34.0[facility] HospitalMCHC Auto (RBC) [Mass/Vol]on 81-71-5969IGEE (RBC) [Mass/Vol]33.0 g/dL 29.9-35.2FSt. Francis HospitalMCV Auto (RBC) [Entitic vol]on 28-60-8412PIK (RBC) [Entitic vol]94.7 fL81.0-99.0[facility] HospitalMonocytes Auto (Bld) [#/Vol]on 77-65-4552Nqjeugsug (Bld) [#/Vol]0.5 10 3/uL0.3-0.8[facility] HospitalMonocytes/100 WBC Auto (Bld)on 05-55-8387Gealqyprz/100 WBC (Bld)6.4 %1.7-12.0[facility] Mucus LM Ql (Urine sed)on 28-91-7476Uixhy Ql (Urine sed)MODERATENONE SEEN [facility] HospitalNeutrophils Auto (Bld) [#/Vol]on 08-23-2023 Neutrophils (Bld) [#/Vol]4.2 10 3/uL1.4-6.5FSt. Francis Hospital Neutrophils/100 WBC Auto (Bld)on 41-02-8879Tsbdnhbsvii/100 WBC (Bld)57.0 % 43.0-75.0[facility] HospitalNo Panel Informationon - Hydroxy Vitamin D Total35.2 ng/mLSelect Medical Ohiohealth Rehabilitation HospitalComment on above:<20 ng/mL Vit D nrogqqpbk18-<30 ng/mL Vit D svkfffwawrei76-137 ng/mL Vit D sufficient>100 ng/mL Potential ToxicityEosinophils # (Auto)0.4 10 3/uL0.0-0.7 [facility] HospitalFree Triiodothyronine1.94 pg/mL2.18-3.98 [facility] HospitalImmature Granulocyte # (Auto)0.02 10 3/uL 0.00-0.03[facility] HospitalPlatelet mean volume Auto (Bld) [Entitic vol]on 60-52-2800Utqniyla mean volume (Bld) [Entitic vol]9.7 fL9.5-13.5 [facility] HospitalPlatelets Auto (Bld) [#/Vol]on 08-23-2023 Platelets (Bld) [#/Vol]347 10 3/mM180-461VylhiipwcSelect Medical Ohiohealth Rehabilitation Hospital Protein Auto test strip (U) [Mass/Vol]on 62-54-6721Byvwdgu (U) [Mass/Vol] NegativeNEG/TRACESelect Medical Ohiohealth Rehabilitation HospitalRBC Auto (Bld) [#/Vol]on 13-47-8281TYK (Bld) [#/Vol]4.35 10 6/uL4.20-5.40Detwiler Memorial Hospitalerum or plasma albumin/globulin mass ratioon 25-78-1724Dbqkefc/Globulin [Mass ratio]1.2 {ratio}[facility] Memorial Hospitalerum or plasma anion gap determinationon 16-09-9115Jopnz gap [Moles/Vol]14.5 mmol/LFAdams County Regional Medical Centererum or plasma total cholesterol/high density lipoprotein (HDL) cholesterol mass constantin 44-54-9427Xuupjtzlfot.total/Cholesterol in HDL [Mass ratio]2.9 {ratio}[facility] HospitalComment on above:3.3 - 4.4 LOW RISK4.4 - 7.1 AVERAGE RISK7.1 - 11.0 MODERATE RISK>11.0 HIGH RISKSpecific gravity Auto test strip (U) [Rel density]on 97-46-8248Xauvwtrr gravity (U) [Rel density]CLEARCLESelect Medical Specialty Hospital - Boardman, IncUrine bacteria detection by automated methodon 09-07-4753Zfpgfgjn Auto Ql (U)NONE SEEN #/HPFNONE [facility]ittman HospitalUrine glucose measurement by test strip (mass/volume)on 45-89-6850Kedrkft Test strip (U) [Mass/Vol]NegativeNEGATIVE [facility] HospitalUrine hemoglobin detection by automated test stripon 42-17-4777Sufbgriprd Auto test strip Ql (U)NegativeNEGMetroHealth Cleveland Heights Medical CenterUrine nitrite detection by automated test stripon 09-89-8381Wzyhcsf Auto test strip Ql (U)NegativeNEGMetroHealth Cleveland Heights Medical CenterUrine sediment crystal identification by light microscopyon 96-58-3154[place] LM Nom (Urine sed)None Seen #/HPFNone [facility]tering HealthUrine sediment leukocyte count by microscopy (number/high power field)on 99-26-4442LKX LM.HPF (Urine sed) [#/Area]0-2 #/HPFNONE [facility]cy HospitalUrobilinogen Auto test strip (U) [Mass/Vol]on 08-23-2023 Urobilinogen Qn (U)0.2 {David'U}/dL0.2-1.0[facility] HospitalpH Auto test strip (U)on 45-04-8437jA (U)5.5 [pH]5.0-9.0[facility] HospitalPatient Correspondenceon 27-77-6829Uaimjpy Correspondence [id number]#1.00PEMBROKELuchoDosher Memorial Hospitalkirby [facility] Medical CenterInsurance Correspondence Officeon 24-00-6474Xxvplsqxs Correspondence [id number]#1.00TIFThe MetroHealth SystemConsent for Treatmenton 73-32-3835Xqapfdq for Treatment [id number]#1.00TIFThe MetroHealth SystemConsultation Noteon 53-08-0596Alnllgiybzuj NotePatient: CANELO PATHAK Age: 57 years Sex: [...] She has tried conservative measures inclusive of ifsu-axm-nmmttig medications and prescription medications inclusive of meloxicam, [...] Histories Past Medical History: Active Acid reflux (617445255) Asthma (388906166) Hypothyroid (869097474) Family History: No family history items have been selected or recorded. Procedure history: Myringotomy and insertion of T tube (297186584). Comments: 02/22/2011 10:22 TINOT - Trixie HART, Sommer x2 Tonsillectomy (955936001). Cholecystectomy (26332588). Laparoscopy (667759039). Abdominal hysterectomy (454913037). Physical Examination Vital Signs (last 24 hrs) [...] with patient, who voiced (more content not included)...[facility] HospitalComment on above:Result Comment: Electronically Signed By: Casper Nguyen DO.kaylan\Date and Time Signed: 05/10/23 15:07 ESTHIPAA Forms Officeon 06-53-5402DENQQ Forms [id number]#1.00TIFFOhioHealth Riverside Methodist HospitalLegal Correspondence Officeon 34-02-4188Xsvuf Correspondence [id number]#1.00TIFThe MetroHealth SystemLegal Correspondence Office [id number]#1.00TIFThe MetroHealth SystemOffice/Clinic Note-Physicianon 93-30-0805Iaadll/Clinic Note-Physician [id number]#1.00TIFThe MetroHealth SystemPatient Correspondenceon 53-09-5544Fuxixvi Correspondence [id number]#1.00[facility] CenterPatient [id number]#1.00TIFF [facility] HospitalPatient Correspondence [id number]#1.00TIFThe MetroHealth SystemPatient [id number]#1.00TIFF [facility] HospitalPatient Correspondence [id number]#1.00[facility] CenterPatient History Officeon 99-73-3583Gxpoxns History Office [id number]#1.00[facility] Medical CenterOutside Records Officeon 84-01-3656Znvgrjz Records Office [id number]#1.00[facility] Medical CenterRadiology Outside Office Copyon 05-08-7676Rehmgghho Outside Office Copy [id number]#1.00[facility] CenterReferrals Officeon 12-90-1487Iygxmgajp Office [id number]#1.00[facility] Medical CenterMR LUMBAR SPINE WO CONTRASTon 61-82-3959SH LUMBAR SPINE WO CONTRASTEXAM: MRI Lumbar Spine [...] Type 2 Possible Transdermal patchCBC AUTO DIFFon 32-49-2403RQJY #0.1 103/ulNormal 0.0-0.1[facility]rus HospitalComment on above:Performed By: #### FT3, CMP, LIPID, TSH #### [facility] [address] [address] [address] Gin Xiesophils/100 WBC (Bld)0.9 %Normal0.2-2.0The [facility] Comment on above:Performed By: #### FT3, CMP, LIPID, TSH #### [facility] [address] [address] [address] Gin Carlton #0.5 103/ulNormal0.0-0.7The [facility] HospitalComment on above: Performed By: #### FT3, CMP, LIPID, TSH #### [facility] [address] [address] [address] Gin Reganosinophils/100 WBC (Bld)5.8 %Normal0.9-7.0[facility] Comment on above:Performed By: #### FT3, CMP, LIPID, TSH #### [facility] [address] [address] [address] Gin Reganrythrocyte distribution width (RBC) [Ratio]13.0 %Nqtrks83.0-15.0 The [facility] HospitalComment on above:Performed By: #### FT3, CMP, LIPID, TSH #### [facility] [address] [place] [address] Dr. iGn ChewHematocrit (Bld) [Volume fraction]39.7 %Mjpxmw61.0-48.0The [facility] HospitalComment on above:Performed By: #### FT3, CMP, LIPID, TSH #### [facility] [address] [place] [address] Dr. Gin ChewHemoglobin (Bld) [Mass/Vol]13.2 g/dQBktjke07.0-16.0The [facility] HospitalComment on above:Performed By: #### FT3, CMP, LIPID, TSH #### [facility] [address] [place] [address] Dr. Gin Harris #0.05 10e3/ulCritically high0.00-0.03The [facility] Comment on above:Performed By: #### FT3, CMP, LIPID, TSH #### [facility] [address] [place] [address] Dr. Gin Harris %0.6 %Critically high0.0-0.5The [facility] HospitalComment on above:Performed By: #### FT3, CMP, LIPID, TSH #### [facility] [address] [place] [address] Dr. Gin MckeonMPH #2.1 103/ulNormal1.2-3.8The [facility] HospitalComment on above:Performed By: #### FT3, CMP, LIPID, TSH #### [facility] [address] [place] [address] Dr. Gin Mckeonmphocytes/100 WBC (Bld)27.4 %Tkszxj09.5-60.0The [facility] HospitalComment on above:Performed By: #### FT3, CMP, LIPID, TSH #### [facility] [address] [place] [address] Dr. Gin JangUAL DIFF REQNONormalThe [facility] HospitalComment on above: Performed By: #### FT3, CMP, LIPID, TSH #### [facility] [address] [place] [address] Dr. Gin Love (RBC) [Entitic mass]30.9 esCbwhhe46.7-34.0The [facility] HospitalComment on above:Performed By: #### FT3, CMP, LIPID, TSH #### [facility] [address] [place] [address] Dr. Gin Love (RBC) [Mass/Vol]33.2 g/tMDoyqqt42.9-35.2The [facility] HospitalComment on above:Performed By: #### FT3, CMP, LIPID, TSH #### [facility] [address] [place] [address] Dr. Gin Love (RBC) [Entitic vol]93.0 hPLrknkk40.0-99.0The [facility] HospitalComment on above:Performed By: #### FT3, CMP, LIPID, TSH #### [facility] [address] [place] [address] Dr. Gin Reyes #0.6 103/ulNormal0.3-0.8The [facility] HospitalComment on above:Performed By: #### FT3, CMP, LIPID, TSH #### [facility] [address] [place] [address] Dr. Gin Mathiasocytes/100 WBC (Bld)7.1 %Normal1.7-12.0The [facility] Comment on above:Performed By: #### FT3, CMP, LIPID, TSH #### [facility] [address] [place] [address] Dr. Gin Romero #4.5 103/ulNormal1.4-6.5The [facility] HospitalComment on above:Performed By: #### FT3, CMP, LIPID, TSH #### [facility] [address] [place] [address] Dr. Gin Boutrophils/100 WBC (Bld)58.2 %Twauhk77.0-75.0The [facility] HospitalComment on above:Performed By: #### FT3, CMP, LIPID, TSH #### [facility] [address] [place] [address] Dr. Gin ChewPlatelet mean volume (Bld) [Entitic vol]9.7 fLNormal9.5-13.5The [facility] HospitalComment on above:Performed By: #### FT3, CMP, LIPID, TSH #### [facility] [address] [place] [address] Dr. Gin ChewPLT339 103/eqQkulwo803-932Itn [facility] HospitalComment on above: Performed By: #### FT3, CMP, LIPID, TSH #### [facility] [address] [place] [address] Dr. Gin ChewRBC4.27 106/ulNormal4.20-5.40The Wilson Healthment on above:Performed By: #### FT3, CMP, LIPID, TSH #### [facility] [address] [place] [address] Dr. Gin ChewWBC7.7 103/ulNormal4.0-11.0The [facility] HospitalComment on above: Performed By: #### FT3, CMP, LIPID, TSH #### [facility] [address] [place] [address] Dr. Gin ChewPROToshia CHEM 8 (BAS METB)on 34-53-9331Tqbcz gap [Moles/Vol]9.4 mmol/LNormalThe [facility] HospitalComment on above:Performed By: #### FT3, CMP, LIPID, TSH #### [facility] [address] [address] [address] Gin ChewCalcium [Mass/Vol]9.1 mg/dLNormal8.5-10.1The [facility] Comment on above:Performed By: #### FT3, CMP, LIPID, TSH #### [facility] [address] [place] [address] Dr. Gin ChewChloride [Moles/Vol]104 mmol/AIzravn76-367Hok [facility] Comment on above:Performed By: #### FT3, CMP, LIPID, TSH #### [facility] [address] [place] [address] Dr. Gin ChewCO2 [Moles/Vol]31.7 mmol/UYyexxs82.0-32.0The [facility] Comment on above:Performed By: #### FT3, CMP, LIPID, TSH #### [facility] [address] [place] [address] Dr. Gin ChewCreatinine [Mass/Vol]0.77 mg/dLNormal0.55-1.02The [facility] HospitalComment on above:Performed By: #### FT3, CMP, LIPID, TSH #### [facility] [address] [place] [address] Dr. Gin ReganGFR-AF BAHRAINI>60Normal>=60The [facility] HospitalComment on above:Performed By: #### FT3, CMP, LIPID, TSH #### [facility] [address] [place] [address] Dr. Gin ReganGFR-NON AF BAHRAINI>60Normal>=60The [facility] HospitalComment on above:Performed By: #### FT3, CMP, LIPID, TSH #### [facility] [address] [place] [address] Dr. Gin ChewGlucose [Mass/Vol]143 mg/dLCritically zawi78-018Fei [facility] HospitalComment on above:Performed By: #### FT3, CMP, LIPID, TSH #### [facility] [address] [place] [address] Dr. Gin ChewPotassium [Moles/Vol]4.1 mmol/LNormal3.5-5.1[facility] Comment on above:Performed By: #### FT3, CMP, LIPID, TSH #### [facility] [address] [address] [address] Gin ChewSodium [Moles/Vol]141 mmol/MTaakjr904-385Eyn [facility] Comment on above:Performed By: #### FT3, CMP, LIPID, TSH #### [facility] [address] [address] [address] Gin ChewUrea nitrogen [Mass/Vol]19.0 mg/dLCritically high7.0-18.0The [facility] HospitalComment on above:Performed By: #### FT3, CMP, LIPID, TSH #### [facility] [address] [address] [address] Gin Bennett nitrogen/Creatinine [Mass ratio]24.7 mg/mgNoDayton Children's HospitalComment on above:Performed By: #### FT3, CMP, LIPID, TSH #### [facility] [address] [place] [address] Dr. Gin ChewXR CHEST 2 Von 78-82-5958QI CHEST 2 VEXAM: XR CHEST 2 V [...] Electronically authenticated by: DURGA DENNIS Date: 2022-09-08 15:53[facility] MANUAL DIFFon 50-55-6703SSZMDOROGMZP6+NormalThe [facility] HospitalComment on above:Performed By: #### CBCMAN #### [facility] [address] [address] [address] Gin Mendez LYMPH #NormalThe Lafayette HospitalComment on above: Performed By: #### VICKIE #### [facility] [address] [address] [address] Gin BatresICAL LYMPH %NormalThe Lafayette HospitalComment on above: Performed By: #### VICKIE #### [facility] [address] [address] [address] Gin Cameron #0.6 103/ulCritically high0.0-0.3The [facility] on above:Performed By: #### VICKIE #### [facility] [address] [address] [address] Gin Cameron %4 %Normal0-5The [facility] HospitalComment on above:Performed By: #### VICKIE #### [facility] [address] [place] [address] Dr. Gin Persaud #0.00 103/ulNormal0.00-0.10The [facility] HospitalComment on above:Performed By: #### VICKIE #### [facility] [address] [address] [address] Gin Persaud %0.0 %Critically low0.2-2.0The [facility] HospitalComment on above:Performed By: #### VICKIE #### [facility] [address] [address] [address] Gin Carl #NormalThe Lafayette HospitalComment on above:Performed By: #### VICKIE #### [facility] [address] [place] [address] Dr. Gin Carl %NormalThe [facility] HospitalComment on above:Performed By: #### VICKIE #### [facility] [address] [place] [address] Dr. Gin ChewCORRECTED WBCNormal4.0-11.0The [facility] HospitalComment on above: Performed By: #### CBCDORIS #### [facility] [address] [place] [address] Dr. Gin Martinez #0.45 103/ulNormal0.00-0.70The [facility] HospitalComment on above:Performed By: #### VICKIE #### [facility] [address] [place] [address] Dr. Gin Martinez%3.0 %Normal0.9-7.0The [facility] HospitalComment on above: Performed By: #### VICKIE #### [facility] [address] [place] [address] Dr. Gin BurnettT43.1 %Uqmaxx86.0-48.0The [facility] HospitalComment on above: Performed By: #### VICKIE #### [facility] [address] [place] [address] Dr. Gin ChewHGB14.4 g/hfKksbtw80.0-16.0The [facility] HospitalComment on above: Performed By: #### VICKIE #### [facility] [address] [place] [address] Dr. Gin Prieto #3.93 103/ulCritically high1.20-3.80The [facility] Comment on above:Performed By: #### VICKIE #### [facility] [address] [place] [address] Dr. Gin Prieto%26.0 %Jihibd15.5-60.0The [facility] HospitalComment on above:Performed By: #### VICKIE #### [facility] [address] [place] [address] Dr. Gin ChewMCH31.0 jvJiflah31.7-34.0The [facility] HospitalComment on above: Performed By: #### VICKIE #### [facility] [address] [place] [address] Dr. Gin LoveHC33.4 g/anLdxfgt46.9-35.2The [facility] HospitalComment on above:Performed By: #### VICKIE #### [facility] [address] [place] [address] Dr. Gin LoveV92.7 hMBhzrov75.0-99.0[facility] Hospitalment on above: Performed By: #### VICKIE #### [facility] [address] [address] [address] Gin BlanchardOCYTE #NormalAvita Health System Bucyrus HospitalComment on above: Performed By: #### VICKIE #### [facility] [address] [address] [address] Gin BlanchardOCYTE %NormalAvita Health System Bucyrus HospitalComment on above: Performed By: #### VICKIE #### [facility] [address] [address] [address] Gin Oconnell#1.06 103/ulCritically high0.30-0.80The [facility] on above:Performed By: #### VICKIE #### [facility] [address] [place] [address] Dr. Gin Oconnell%7.0 %Normal1.7-12.0The [facility] HospitalComment on above: Performed By: #### VICKIE #### [facility] [address] [place] [address] Dr. Gin ChewMPV9.7 fLNormal9.5-13.5The [facility] HospitalComforest view hospital on above: Performed By: #### VICKIE #### [facility] [address] [place] [address] Dr. Gin Saleem #NormalAvita Health System Bucyrus HospitalComment on above:Performed By: #### VICKIE #### [facility] [address] [place] [address] Dr. Gin Saleem %NormalAvita Health System Bucyrus HospitalComforest view hospital on above:Performed By: #### VICKIE #### [facility] [address] [place] [address] Dr. Gin ChewNRQUINNormalThLima Memorial HospitalComforest view hospital on above:Performed By: #### VICKIE #### [facility] [address] [place] [address] Dr. Gin ChewPLT372 103/elKhcuet564-481Soa [facility] HospitalComment on above: Performed By: #### CBCMAN #### [facility] [address] [address] [address] Gin ChewRBC4.65 106/ulNormal4.20-5.40The [facility] HospitalComment on above:Performed By: #### CBCMAN #### [facility] [address] [address] [address] Gin ChewRDW13.0 %Syxoxh31.0-15.0The [facility] HospitalComment on above: Performed By: #### CBCMAN #### [facility] [address] [address] [address] Gin Redding #9.06 103/ulCritically high1.40-6.50The [facility] Comment on above:Performed By: #### CBCMAN #### [facility] [address] [place] [address] Dr. Gin Redding %60.0 %Ordlfv40.0-75.0The [facility] HospitalComment on above: Performed By: #### CBCMAN #### [facility] [address] [place] [address] Dr. Gin ChewWBC15.1 103/ulCritically high4.0-11.0The [facility] HospitalComment on above:Performed By: #### CBCMAN #### [facility] [address] [place] [address] Dr. Gin ChewLACTATE/LACTIC ACIDon 51-54-5767Ihelxnn [Moles/Vol]1.2 mmol/L Normal0.4-2.0The [facility] HospitalComment on above:Performed By: #### BMP #### [facility] [address] [place] [address] Dr. Gin ChewPROF CHEM 8 (BAS METB)on 65-01-4807Uvzsd gap [Moles/Vol]11.4 mmol/LNormalThe [facility] HospitalComment on above:Performed By: #### A1C #### [facility] [address] [place] [address] Dr. Gin ChewCalcium [Mass/Vol]9.2 mg/dLNormal8.5-10.1[facility] Comment on above:Performed By: #### A1C #### [facility] [address] [address] [address] Gin ChewChloride [Moles/Vol]102 mmol/CJfxxae25-267Iel [facility] Comment on above:Performed By: #### A1C #### [facility] [address] [address] [address] Gin ChewCO2 [Moles/Vol]31.3 mmol/MJaqyie28.0-32.0The [facility] Comment on above:Performed By: #### A1C #### [facility] [address] [place] [address] Dr. Gin ChewCreatinine [Mass/Vol]0.86 mg/dLNormal0.55-1.02[facility] HospitalComment on above:Performed By: #### A1C #### [facility] [address] [place] [address] Dr. Gin ReganGFR-AF BAHRAINI>60Normal>=60The [facility] HospitalComment on above:Performed By: #### A1C #### [facility] [address] [place] [address] Dr. Gin ReganGFR-NON AF BAHRAINI>60Normal>=60The [facility] HospitalComment on above:Performed By: #### A1C #### [facility] [address] [address] [address] Gin ChewGlucose [Mass/Vol]119 mg/dLCritically ofpm02-908Bin [facility] HospitalComment on above:Performed By: #### A1C #### [facility] [address] [address] [address] Gin ChewPotassium [Moles/Vol]3.7 mmol/LNormal3.5-5.1[facility] Comment on above:Performed By: #### A1C #### [facility] [address] [place] [address] Dr. Gin ChewSodium [Moles/Vol]141 mmol/PEbbnzn667-762Yed [facility] Comment on above:Performed By: #### A1C #### [facility] [address] [place] [address] Dr. Gin Bennett nitrogen [Mass/Vol]17.0 mg/dLNormal7.0-18.0The [facility] HospitalComment on above:Performed By: #### A1C #### [facility] [address] [place] [address] Dr. Gin ChewUrea nitrogen/Creatinine [Mass ratio]19.8 mg/mgNormalThe [facility] HospitalComment on above:Performed By: #### A1C #### [facility] [address] [place] [address] Dr. Gin Cruz RATE WESTERGRENon [id number] RATE8 mm/hrNormal<=30The [facility] HospitalComment on above:Performed By: #### A1C #### [facility] [address] [place] [address] Dr. Gin Salter AUTO DIFFon [id number] #0.1 103/ulNormal0.0-0.1The [facility] HospitalComment on above:Performed By: #### BMP #### [facility] [address] [place] [address] Dr. Gin ChewBasophils/100 WBC (Bld)0.7 %Normal0.2-2.0[facility] Comment on above:Performed By: #### BMP #### [facility] [address] [place] [address] Dr. Gin Carlton #0.3 103/ulNormal0.0-0.7The [facility] HospitalComment on above: Performed By: #### BMP #### [facility] [address] [place] [address] Dr. Gin Reganosinophils/100 WBC (Bld)1.9 %Normal0.9-7.0The [facility] Comment on above:Performed By: #### BMP #### [facility] [address] [place] [address] Dr. Yilan ChangErythrocyte distribution width (RBC) [Ratio]12.9 %Kwakwj75.0-15.0 The [facility] HospitalComment on above:Performed By: #### BMP #### [facility] [address] [place] [address] Dr. Gin ChewHematocrit (Bld) [Volume fraction]42.9 %Oetqbt35.0-48.0The [facility] HospitalComment on above:Performed By: #### BMP #### [facility] [address] [place] [address] Dr. Gin ChewHemoglobin (Bld) [Mass/Vol]14.3 g/wAXsektr77.0-16.0The [facility] HospitalComment on above:Performed By: #### BMP #### [facility] [address] [place] [address] Dr. Gin Harris #0.41 10e3/ulCritically high0.00-0.03The [facility] Comment on above:Performed By: #### BMP #### [facility] [address] [place] [address] Dr. Gin Harris %2.5 %Critically high0.0-0.5The [facility] HospitalComment on above:Performed By: #### BMP #### [facility] [address] [place] [address] Dr. Gin Girard #3.5 103/ulNormal1.2-3.8The [facility] HospitalComment on above:Performed By: #### BMP #### [facility] [address] [place] [address] Dr. Gin Whitakerhocytes/100 WBC (Bld)21.5 %Peujbp62.5-60.0The [facility] HospitalComment on above:Performed By: #### BMP #### [facility] [address] [place] [address] Dr. Gin JangUAL DIFF REQNONormalThe [facility] HospitalComment on above: Performed By: #### BMP #### [facility] [address] [place] [address] Dr. Gin Lanier (RBC) [Entitic mass]30.9 ixKjmfmi10.7-34.0The [facility] HospitalComment on above:Performed By: #### BMP #### [facility] [address] [place] [address] Dr. Gin Love (RBC) [Mass/Vol]33.3 g/lMTnwple22.9-35.2The [facility] HospitalComment on above:Performed By: #### BMP #### [facility] [address] [place] [address] Dr. Gin Love (RBC) [Entitic vol]92.7 aUXbrldr40.0-99.0The [facility] HospitalComment on above:Performed By: #### BMP #### [facility] [address] [place] [address] Dr. Gin Reyes #1.0 103/ulCritically high0.3-0.8The [facility] Comment on above:Performed By: #### BMP #### [facility] [address] [place] [address] Dr. Gin Mathiasocytes/100 WBC (Bld)6.2 %Normal1.7-12.0[facility] Comment on above:Performed By: #### BMP #### [facility] [address] [place] [address] Dr. Gin Romero #10.9 103/ulCritically high1.4-6.5The [facility] Comment on above:Performed By: #### BMP #### [facility] [address] [place] [address] Dr. Gin Boutrophils/100 WBC (Bld)67.2 %Tqtddz13.0-75.0The [facility] HospitalComment on above:Performed By: #### BMP #### [facility] [address] [place] [address] Dr. Gin Gamble mean volume (Bld) [Entitic vol]9.7 fLNormal9.5-13.5The [facility] HospitalComment on above:Performed By: #### BMP #### [facility] [address] [address] [address] Gin ChewPLT424 103/fhChlgru481-884Zic [facility] HospitalComment on above: Performed By: #### BMP #### [facility] [address] [place] [address] Dr. Gin ChewRBC4.63 106/ulNormal4.20-5.40The [facility] HospitalComment on above:Performed By: #### BMP #### [facility] [address] [address] [address] Gin ChewWBC16.2 103/ulCritically high4.0-11.0The [facility] HospitalComforest [facility] hospital on above:Performed By: #### BMP #### [facility] [address] [place] [address] Dr. Gin ChewCT HEAD WO CONon [id number] HEAD WO CONHEAD CT WITHOUT CONTRAST, 08/17/2022 [...] Electronically authenticated by: Lloyd SANDRA Date: 2022-08-17 18:16[facility] HospitalCovid-[facility] PCR ([facility])on [id number]-CoV-2 (COVID-19) RNA ARIADNA+probe Ql (Unsp spec)Not detectedNormalNOT DETECTEDThe [facility] Comment on above:Result Comment: This test is not yet approved or cleared by the [place] FDA. When there are no FDA-approved or cleared tests available, and other criteria are met, FDA can make tests available under an emergency access mechanism called an Emergency Use Authorization (EUA). The EUA for this test is supported by the [employer] of Health and Human Service's (HHS's) declaration [...] consistent with SARS-CoV-2.Performed By: #### A1C #### [facility] [address] [place] [address] Dr. Gin ChewPROF CHEM 8 (BAS METB)on [id number] gap [Moles/Vol]13.8 mmol/LNormalAv[facility] HospitalComment on above:Performed By: #### BMP #### [facility] [address] [place] [address] Dr. Gin ChewCalcium [Mass/Vol]9.0 mg/dLNormal8.5-10.1[facility] Comment on above:Performed By: #### BMP #### [facility] [address] [place] [address] Dr. Gin ChewChloride [Moles/Vol]102 mmol/KMloyan60-143Vhn [facility] Comment on above:Performed By: #### BMP #### [facility] [address] [place] [address] Dr. Gin ChewCO2 [Moles/Vol]28.4 mmol/DPwptem68.0-32.0The [facility] Comment on above:Performed By: #### BMP #### [facility] [address] [address] [address] Gin ChewCreatinine [Mass/Vol]0.93 mg/dLNormal0.55-1.02The [facility] HospitalComment on above:Performed By: #### BMP #### [facility] [address] [address] [address] Gin ReganGFR-AF BAHRAINI>60Normal>=60The [facility] HospitalComment on above:Performed By: #### BMP #### [facility] [address] [address] [address] Gin ReganGFR-NON AF BAHRAINI>60Normal>=60The [facility] HospitalComment on above:Performed By: #### BMP #### [facility] [address] [address] [address] Gin ChewGlucose [Mass/Vol]133 mg/dLCritically cvut81-983Xzd [facility] HospitalComment on above:Performed By: #### BMP #### [facility] [address] [address] [address] Gin ChewPotassium [Moles/Vol]4.2 mmol/LNormal3.5-5.1[facility] Comment on above:Performed By: #### BMP #### [facility] [address] [address] [address] Gin ChewSodium [Moles/Vol]140 mmol/YMkhlnr511-907Bjk [facility] Comment on above:Performed By: #### BMP #### [facility] [address] [address] [address] Gin ChewUrea nitrogen [Mass/Vol]20.0 mg/dLCritically high7.0-18.0The [facility] HospitalComment on above:Performed By: #### BMP #### [facility] [address] [address] [address] Gin ChewUrea nitrogen/Creatinine [Mass ratio]21.5 mg/mgNormalThe [facility] HospitalComment on above:Performed By: #### BMP #### [facility] [address] [place] [address] Dr. Gin GrimesMATIC COVID-19 ANTIGENon [id number] StatementSEE BELOW NormalThe [facility] HospitalComment on above:Result Comment: This test has not [...] is revoked sooner.Performed By: #### A1C #### [facility] [address] [place] [address] Dr. Gin Posey-CoV-2 (COVID-19) RNA ARIADNA+probe Ql (Unsp spec)NegativeNormal NEGATIVEThe [facility] HospitalComment on above:Performed By: #### A1C #### [facility] [address] [place] [address] Dr. Gin Salter AUTO DIFFon [id number] #0.1 103/ulNormal0.0-0.1The [facility] HospitalComment on above:Performed By: #### BMP #### [facility] [address] [place] [address] Dr. Gin ChewBasophils/100 WBC (Bld)1.0 %Normal0.2-2.0The [facility] Comment on above:Performed By: #### BMP #### [facility] [address] [place] [address] Dr. Greenfield ChangEO #0.5 103/ulNormal0.0-0.7The [facility] HospitalComment on above: Performed By: #### BMP #### [facility] [address] [place] [address] Dr. Gin Reganosinophils/100 WBC (Bld)7.1 %Critically high0.9-7.0The [facility] HospitalComment on above:Performed By: #### BMP #### [facility] [address] [place] [address] Dr. Gin Reganrythrocyte distribution width (RBC) [Ratio]12.3 %Fuqzgu58.0-15.0 The [facility] HospitalComment on above:Performed By: #### BMP #### [facility] [address] [place] [address] Dr. Gin ChewHematocrit (Bld) [Volume fraction]39.6 %Zoqjzr70.0-48.0The [facility] HospitalComment on above:Performed By: #### BMP #### [facility] [address] [place] [address] Dr. Gin ChewHemoglobin (Bld) [Mass/Vol]13.5 g/uKCsgaqe57.0-16.0The [facility] HospitalComment on above:Performed By: #### BMP #### [facility] [address] [place] [address] Dr. Gin Harris #0.03 10e3/ulNormal0.00-0.03The [facility] HospitalComment on above:Performed By: #### BMP #### [facility] [address] [place] [address] Dr. Gin Harris %0.4 %Normal0.0-0.5The [facility] HospitalComment on above: Performed By: #### BMP #### [facility] [address] [place] [address] Dr. Gin WhitakerH #2.4 103/ulNormal1.2-3.8The [facility] HospitalComment on above:Performed By: #### BMP #### [facility] [address] [place] [address] Dr. Gin Mckeonmphocytes/100 WBC (Bld)33.7 %Fhjxtg05.5-60.0The [facility] HospitalComment on above:Performed By: #### BMP #### [facility] [address] [place] [address] Dr. Gin Jones DIFF REQNONormalThe [facility] HospitalComment on above: Performed By: #### BMP #### [facility] [address] [place] [address] Dr. Gin Love (RBC) [Entitic mass]30.8 xvYshoxt47.7-34.0The [facility] HospitalComment on above:Performed By: #### BMP #### [facility] [address] [place] [address] Dr. Gin Love (RBC) [Mass/Vol]34.1 g/iDSrqlmw36.9-35.2The [facility] HospitalComment on above:Performed By: #### BMP #### [facility] [address] [place] [address] Dr. Gin Love (RBC) [Entitic vol]90.2 pVZyapfr16.0-99.0The [facility] HospitalComment on above:Performed By: #### BMP #### [facility] [address] [place] [address] Dr. Gin Reyes #0.5 103/ulNormal0.3-0.8The [facility] HospitalComment on above:Performed By: #### BMP #### [facility] [address] [place] [address] Dr. Gin Mathiasocytes/100 WBC (Bld)6.7 %Normal1.7-12.0The [facility] Comment on above:Performed By: #### BMP #### [facility] [address] [place] [address] Dr. Gin Romero #3.6 103/ulNormal1.4-6.5The [facility] HospitalComment on above:Performed By: #### BMP #### [facility] [address] [place] [address] Dr. Gin Boutrophils/100 WBC (Bld)51.1 %Diltrj06.0-75.0The [facility] HospitalComment on above:Performed By: #### BMP #### [facility] [address] [place] [address] Dr. Gin Gamble mean volume (Bld) [Entitic vol]9.6 fLNormal9.5-13.5The [facility] HospitalComment on above:Performed By: #### BMP #### [facility] [address] [place] [address] Dr. Gin ChewPLT337 103/gcAtmtkg080-239Hgv [facility] HospitalComment on above: Performed By: #### BMP #### [facility] [address] [place] [address] Dr. Gin ChewRBC4.39 106/ulNormal4.20-5.40The [facility] HospitalComment on above:Performed By: #### BMP #### [facility] [address] [place] [address] Dr. Gni ChewWBC7.0 103/ulNormal4.0-11.0The [facility] HospitalComment on above: Performed By: #### BMP #### [facility] [address] [place] [address] Dr. Gin Baldwin URINEon [id number] URINECulture Observations: MODERATE GROWTH OF MIXED GENITAL ELOINA. NO POTENTIAL PATHOGENS SEEN.NormalThe [facility] HospitalComment on above:Performed By: #### A1C #### [facility] [address] [place] [address] Dr. Gin Crawford T3on 70-04-0917EXAW T32.10 pg/mlLCritically low2.18-3.98The [facility] HospitalComment on above:Performed By: #### FT3, CMP, LIPID, TSH #### [facility] [address] [place] [address] Dr. Gin Crawford T4on 06-94-7576Zqma T4 [Mass/Vol]1.56 ng/dLCritically high 0.76-1.46The [facility] HospitalComment on above:Performed By: #### FT4, VITAD #### [facility] [address] [address] [address] Gin ChewGLYCOHEMOGLOBIN A1Con [id number] RECOMMENDATIONSEE BELOWDetwiler Memorial HospitalComforest view hospital on above:Result Comment: ADA RECOMMENDED LIMIT 4.0 - 6.0 ADA THERAPEUTIC TARGET < 7.0 ACTION SUGGESTED > 7.0Performed By: #### A1C #### [facility] [address] [address] [address] Gin ChewGlucose [Mass/Vol]134 mg/dLNoDayton Children's HospitalComment on above:Performed By: #### A1C #### [facility] [address] [place] [address] Dr. Gin ChewHbA1c (Bld) [Mass fraction]6.3 %Critically high4.5-6.2[facility] HospitalComment on above:Performed By: #### A1C #### [facility] [address] [place] [address] Dr. Gin ChewLIPID PROFILEon [id number]-HDL RATIO NORMSEE [facility] CenterComforest [facility] hospital on above:Result Comment: 3.3 - 4.4 LOW RISK 4.4 - 7.1 AVERAGE RISK 7.1 - 11.0 MODERATE RISK >11.0 HIGH RISKPerformed By: #### FT3, CMP, LIPID, TSH #### [facility] [address] [place] [address] Dr. Gin ChewCholesterol [Mass/Vol]190 mg/dLNormal<=200The [facility] Comment on above:Performed By: #### FT3, CMP, LIPID, TSH #### [facility] [address] [address] [address] Gin ChewCholesterol in HDL [Mass/Vol]76 mg/dLCritically jsof78-49Oty [facility] HospitalComforest view hospital on above:Performed By: #### FT3, CMP, LIPID, TSH #### [facility] [address] [place] [address] Dr. Gin ChewCholesterol in LDL [Mass/Vol]98.4 mg/dLBrecksville VA / Crille HospitalComment on above:Performed By: #### FT3, CMP, LIPID, TSH #### [facility] [address] [place] [address] Dr. Gin ChewCholesterol.total/Cholesterol in HDL [Mass ratio]2.5 {ratio} NormalThe [facility] HospitalComment on above:Performed By: #### FT3, CMP, LIPID, TSH #### [facility] [address] [address] [address] Gin Mota NORMAL> or = 60 mg/dl - LOW CARDIOVASCULAR RISK <40 mg/dl - HIGH CARDIOVASCULAR RISKNoDayton Children's HospitalComment on above:Performed By: #### FT3, CMP, LIPID, TSH #### [facility] [address] [place] [address] Dr. Gin ChewLDL CALC NORMALSEE BELOWNoDayton Children's HospitalComment on above:Result Comment: <100 mg/dl OPTIMAL 100 - 129 mg/dl NEAR OR ABOVE OPTIMAL 130 - 159 mg/dl BORDERLINE HIGH 160 - 189 mg/dl HIGH >190 mg/dl VERY HIGH Performed By: #### FT3, CMP, LIPID, TSH #### [facility] [address] [place] [address] Dr. Gin ChewTriglyceride [Mass/Vol]78 mg/dLNormal<=150[facility] Comment on above:Performed By: #### FT3, CMP, LIPID, TSH #### [facility] [address] [place] [address] Dr. Gin ChewVLDL CALC15.6 mg/dLNoDayton Children's HospitalComment on above: Performed By: #### FT3, CMP, LIPID, TSH #### [facility] [address] [place] [address] Dr. Gin MacedoALBUMIN, RAND URon 82-64-3046cFRM4.7 mg/LNormal<=30.0[facility] HospitalComment on above:Performed By: #### A1C #### [facility] [address] [place] [address] Dr. Gin Hitchcock 14(COMP METB)on [id number] [Mass/Vol]4.0 g/dLNormal 3.4-5.0The [facility] HospitalComment on above:Performed By: #### FT3, CMP, LIPID, TSH #### [facility] [address] [address] [address] Gin ChewAlbumin/Globulin [Mass ratio]1.2 {ratio}NormalThe [facility] HospitalComment on above:Performed By: #### FT3, CMP, LIPID, TSH #### [facility] [address] [address] [address] Gin Cm [Catalytic activity/Vol]67 U/AVlxsse18-343Zbi [facility] HospitalComment on above:Performed By: #### FT3, CMP, LIPID, TSH #### [facility] [address] [place] [address] Dr. Gin Vera [Catalytic activity/Vol]25 U/DNzatta40-23Sbt [facility] HospitalComment on above:Performed By: #### FT3, CMP, LIPID, TSH #### [facility] [address] [address] [address] Gin Hayes gap [Moles/Vol]12.2 mmol/LNormalThe [facility] Comment on above:Performed By: #### FT3, CMP, LIPID, TSH #### [facility] [address] [address] [address] Gin ChewAST [Catalytic activity/Vol]20 U/FXorkvi07-89Nzi [facility] Healthment on above:Performed By: #### FT3, CMP, LIPID, TSH #### [facility] [address] [address] [address] Gin ChewBilirubin [Mass/Vol]0.4 mg/dLNormal0.2-1.0The [facility] Comment on above:Performed By: #### FT3, CMP, LIPID, TSH #### [facility] [address] [address] [address] Gin ChewCalcium [Mass/Vol]9.6 mg/dLNormal8.5-10.1The [facility] Comment on above:Performed By: #### FT3, CMP, LIPID, TSH #### [facility] [address] [address] [address] Gin ChewChloride [Moles/Vol]103 mmol/RWkveix47-439Hoo [facility] Comment on above:Performed By: #### FT3, CMP, LIPID, TSH #### [facility] [address] [address] [address] Gin ChewCO2 [Moles/Vol]28.1 mmol/WCcanpz91.0-32.0The [facility] Comment on above:Performed By: #### FT3, CMP, LIPID, TSH #### [facility] [address] [place] [address] Dr. Gin ChewCreatinine [Mass/Vol]0.64 mg/dLNormal0.55-1.02The [facility] HospitalComment on above:Performed By: #### FT3, CMP, LIPID, TSH #### [facility] [address] [place] [address] Dr. Gin ReganGFR-AF BAHRAINI>60Normal>=60The [facility] HospitalComment on above:Performed By: #### FT3, CMP, LIPID, TSH #### [facility] [address] [place] [address] Dr. Gin ReganGFR-NON AF BAHRAINI>60Normal>=60The [facility] HospitalComment on above:Performed By: #### FT3, CMP, LIPID, TSH #### [facility] [address] [place] [address] Dr. Gin ChewGlobulin (S) [Mass/Vol]3.3 g/dLNormalThe [facility] HospitalComment on above:Performed By: #### FT3, CMP, LIPID, TSH #### [facility] [address] [address] [address] Gin ChewGlucose [Mass/Vol]98 mg/eKRpdoqm70-863Ypt [facility] Comment on above:Performed By: #### FT3, CMP, LIPID, TSH #### [facility] [address] [place] [address] Dr. Gin ChewPotassium [Moles/Vol]4.3 mmol/LNormal3.5-5.1The [facility] [facility] Comment on above:Performed By: #### FT3, CMP, LIPID, TSH #### [facility] [address] [place] [address] Dr. Gin ChewProtein [Mass/Vol]7.3 g/dLNormal6.4-8.2The [facility] Comment on above:Performed By: #### FT3, CMP, LIPID, TSH #### [facility] [address] [place] [address] Dr. Gin ChewSodium [Moles/Vol]139 mmol/DPnifdr009-691Net [facility] Comment on above:Performed By: #### FT3, CMP, LIPID, TSH #### [facility] [address] [place] [address] Dr. Gin Bennett nitrogen [Mass/Vol]21.0 mg/dLCritically high7.0-18.0The [facility] HospitalComment on above:Performed By: #### FT3, CMP, LIPID, TSH #### [facility] [address] [place] [address] Dr. Gin Bennett nitrogen/Creatinine [Mass ratio]32.8 mg/mgNormalThe [facility] HospitalComment on above:Performed By: #### FT3, CMP, LIPID, TSH #### [facility] [address] [place] [address] Dr. Gin Shields 91-94-9901ZOJ5.200 uIU/mLNormal0.358-3.740[facility] HospitalComment on above:Performed By: #### FT3, CMP, LIPID, TSH #### [facility] [address] [place] [address] Dr. Gin Westbrook RANDOM W/MICROSCOPICon [id number] SEENNormalNONE SEENThe [facility] HospitalComment on above:Performed By: #### FT3, CMP, LIPID, TSH #### [facility] [address] [address] [address] Gin ChewBilirubin Ql (U)NegativeNormalNEGATIVEAvita Health System [facility] Hospital Comment on above:Performed By: #### FT3, CMP, LIPID, TSH #### [facility] [address] [address] [address] Gin ChewCASTNONE SEENNormalNONE SEENAvita Health System Bucyrus HospitalComment on above:Performed By: #### FT3, CMP, LIPID, TSH #### [facility] [address] [address] [address] Gin ChewClarity (U)CLEARNormalCLEARAvita Health System Bucyrus HospitalComment on above: Performed By: #### FT3, CMP, LIPID, TSH #### [facility] [address] [address] [address] Gin ChewColor (U)LT. YELLOWNormalYELLOWAvita Health System Bucyrus HospitalComment on above:Performed By: #### FT3, CMP, LIPID, TSH #### [facility] [address] [address] [address] Gin ChewCrystals LM Nom (Urine sed)NONE SEENNormalNONE SEENAvita Health System Bucyrus HospitalComment on above:Performed By: #### FT3, CMP, LIPID, TSH #### [facility] [address] [address] [address] Greenfield ChangEpithelial cells LM Ql (Urine sed)FEWAbnormalNONE SEEN /RAREThe [facility] HospitalComforest view hospital on above:Performed By: #### FT3, CMP, LIPID, TSH #### [facility] [address] [address] [address] Gin ChewGlucose Ql (U)NegativeNormalNEGATIVEAvita Health System Bucy[facility] HospitalComment on above:Performed By: #### FT3, CMP, LIPID, TSH #### [facility] [address] [address] [address] Gin ChewHemoglobin Ql (U)NegativeNormalNEGATIVEAvita [facility] Comment on above:Performed By: #### FT3, CMP, LIPID, TSH #### [facility] [address] [address] [address] Gin Munguia Ql (U)NegativeNormalNEGATIVEThe [facility] HospitalComment on above:Performed By: #### FT3, CMP, LIPID, TSH #### [facility] [address] [address] [address] Gin ChewLEUKOCYTESNegativeNormalNEGATIVEThe [facility] HospitalComment on above:Performed By: #### FT3, CMP, LIPID, TSH #### [facility] [address] [address] [address] Gin Whitten SEENNormalNONE SEENAvita Health System Bucyrus HospitalComment on above:Performed By: #### FT3, CMP, LIPID, TSH #### [facility] [address] [address] [address] Gin Muniz Ql (U)NegativeNormalNEGATIVEThe [facility] HospitalComment on above:Performed By: #### FT3, CMP, LIPID, TSH #### [facility] [address] [address] [address] Gin ChewpH (U)5.5 [pH]Normal5-9The [facility] HospitalComment on above: Performed By: #### FT3, CMP, LIPID, TSH #### [facility] [address] [address] [address] Gin Blakely SEENAbnormal0-2The [facility] HospitalComment on above: Performed By: #### FT3, CMP, LIPID, TSH #### [facility] [address] [address] [address] Gin ChewSPEC GRAVITY1.296Daderr1.005-<=1.025The [facility] HospitalComment on above:Performed By: #### FT3, CMP, LIPID, TSH #### [facility] [address] [address] [address] Gin ChewUA PROTEINNegativeNormalNEGATIVE/ TRACEThe [facility] Comment on above:Performed By: #### FT3, CMP, LIPID, TSH #### [facility] [address] [place] [address] Dr. Gin Avila Qn (U)0.2 {David'U}/dLNormal0.2 - 1.0The [facility] Healthment on above:Performed By: #### FT3, CMP, LIPID, TSH #### [facility] [address] [place] [address] Dr. Gin Donovan SEENrmalNONE SEENThe [facility] HospitalComment on above: Performed By: #### FT3, CMP, LIPID, TSH #### [facility] [address] [place] [address] Dr. Gin ChewVITAMIN D 25 OHon [id number] D 25-OH30.1 ng/mLNormalThe [facility] HospitalComment on above:Performed By: #### FT4, VITAD #### [facility] [address] [place] [address] Dr. Gin DARDENSEE [facility] CenterComment on above: Result Comment: <20 ng/mL Vit D deficient 20 - <30 ng/mL Vit D insufficient 30 - 100 ng/mL Vit D sufficient >100 ng/mL Potential ToxicityPerformed By: #### FT4, VITAD #### [facility] [address] [place] [address] Dr. Gin Crawford T3on [id number] T32.83 pg/mlLNormal2.18-3.98The [facility] HospitalComment on above:Performed By: #### BMP #### [facility] [address] [place] [address] Dr. Gin Crawford T4on [id number] T4 [Mass/Vol]1.74 ng/dLCritically high 0.76-1.46The [facility] HospitalComforest view hospital on above:Performed By: #### FT4 #### [facility] [address] [place] [address] Dr. Gin Shields 84-41-5241CMT2.235 uIU/mLCritically low0.358-3.740The [facility] HospitalComment on above:Performed By: #### BMP #### [facility] [address] [place] [address] Dr. Gin ChewXR CHEST 2 Von [id number] CHEST 2 VEXAMINATION: XR CHEST 2 V [...] Electronically authenticated by: JEFF PATHAK Date: 2021-11-29 21:03[facility] HospitalCNPNon [id number] (ENDOSO) CANELO PATHAK ([id number]) 1965 F Date Time Provider Department 10/13/21 [...] Date Reviewed: 10/13/2021 Reviewed by: Anila Jimenez APRN.SPECIAL EVENTS DRIVER - Fully Assessed Reason for Visit: Appointment [...] daily. - mometasone furoate(NASONEX 50 MCG/ACTUATION SPRAY) [place] twice in each nostril once daily. - [...] wi*10/11/2021 Encounter Status:Closed by ANILA JIMENEZ on 10/13/21[facility] W Auto Differential panel (Bld)on [id number] (Bld) [#/Vol] 0.07 10*3/uLNormal<0.11CMartin Memorial Hospital on above:Order Comment: Specimen Type: BLOOD SPECIMENOrdering Facility: [facility] Address:[address] [place], [place] [address]Performed By: #### CMP, HBA1C, FREET3, FT4, TSH #### [address] [address] Eytpcatod/100 WBC (Bld)0.7 %[facility] on above:Order Comment: Specimen Type: BLOOD SPECIMENOrdering Facility: [facility] Address:[address] [place] [address] Performed By: #### CMP, HBA1C, FREET3, FT4, TSH #### [address] [address] Bvgwbioeglep cell count method Nom (Bld)AutoNormalCMartin Memorial Hospital on above:Order Comment: Specimen Type: BLOOD SPECIMENOrdering Facility: [facility] Address:[address] [place], [place] [address]Performed By: #### CMP, HBA1C, FREET3, FT4, TSH #### [address] [place] [address] Mvovwsrucla (Bld) [#/Vol]0.29 10*3/uLNormal<0.46[facility] on above:Order Comment: Specimen Type: BLOOD SPECIMENOrdering Facility: [facility] Address:[address] [place], [place] [address]Performed By: #### CMP, HBA1C, FREET3, FT4, TSH #### [address] [place] [address] Okgvmquwmge/100 WBC (Bld)3.0 %[facility] Comment on above:Order Comment: Specimen Type: BLOOD SPECIMENOrdering Facility: [facility] Address:[address] [place] [address] Performed By: #### CMP, HBA1C, FREET3, FT4, TSH #### [address] [address] Aixctimxcki distribution width (RBC) [Ratio]12.3 %Rgyjgp61.5-15.0 [facility] on above:Order Comment: Specimen Type: BLOOD SPECIMENOrdering Facility: [facility] Address:[address] [place], [place] [address]Performed By: #### CMP, HBA1C, FREET3, FT4, TSH #### [address] [address] Ojduzynvsj (Bld) [Volume fraction]43.4 %Qukwwc27.0-46.0[facility] on above:Order Comment: Specimen Type: BLOOD SPECIMENOrdering Facility: [facility] Address:[address] [place], [place] [address]Performed By: #### CMP, HBA1C, FREET3, FT4, TSH #### [address] [place] [address] Fqoqgrselc (Bld) [Mass/Vol]14.5 g/mIXpcwnt08.5-15.5CMartin Memorial Hospital on above:Order Comment: Specimen Type: BLOOD SPECIMENOrdering Facility: [facility] Address:[address] [place], [place] [address]Performed By: #### CMP, HBA1C, FREET3, FT4, TSH #### [address] [address] ZKWHKNDB GRAN %0.4 %NormalWestern Reserve Hospital on above:Order Comment: Specimen Type: BLOOD SPECIMENOrdering Facility: [facility] Address:[address] [place], [place] [address]Performed By: #### CMP, HBA1C, FREET3, FT4, TSH #### [address] [address] GTQRRKUU GRAN ABS0.04 k/uLNormal<0.10[facility] Comment on above:Order Comment: Specimen Type: BLOOD SPECIMENOrdering Facility: [facility] Address:[address] [place] [address] Performed By: #### CMP, HBA1C, FREET3, FT4, TSH #### [address] [place] [address] Guvgyblbotd (Bld) [#/Vol]2.21 10*3/uLNormal1.00-4.00[facility] on above:Order Comment: Specimen Type: BLOOD SPECIMENOrdering Facility: [facility] Address:[address] [place], [place] [address]Performed By: #### CMP, HBA1C, FREET3, FT4, TSH #### [address] [place] [address] Nqapepzwreg/100 WBC (Bld)22.6 %NormalTrihealth Comment on above:Order Comment: Specimen Type: BLOOD SPECIMENOrdering Facility: [facility] Address:[address] [place] [address] Performed By: #### CMP, HBA1C, FREET3, FT4, TSH #### [place] [phone] (RBC) [Entitic mass]30.7 hrSzxthd74.0-34.0[facility] on above:Order Comment: Specimen Type: BLOOD SPECIMENOrdering Facility: [facility] Address:[address] [place], [place] [address]Performed By: #### CMP, HBA1C, FREET3, FT4, TSH #### [place] [phone] (RBC) [Mass/Vol]33.4 g/vUZmatpj96.5-36.0[facility] on above:Order Comment: Specimen Type: BLOOD SPECIMENOrdering Facility: [facility] Address:[address] [place], [place] [address]Performed By: #### CMP, HBA1C, FREET3, FT4, TSH #### [place] [phone] (RBC) [Entitic vol]91.9 kPKbxtxt26.0-100.0[facility] on above:Order Comment: Specimen Type: BLOOD SPECIMENOrdering Facility: [facility] Address:[address] [place], [place] [address]Performed By: #### CMP, HBA1C, FREET3, FT4, TSH #### [place] [phone] (Bld) [#/Vol]0.60 10*3/uLNormal<0.87[facility] on above:Order Comment: Specimen Type: BLOOD SPECIMENOrdering Facility: [facility] Address:[address] [place], [place] [address]Performed By: #### CMP, HBA1C, FREET3, FT4, TSH #### [place] [phone]/100 WBC (Bld)6.1 %NormalWestern Reserve Hospital on above:Order Comment: Specimen Type: BLOOD SPECIMENOrdering Facility: [facility] Address:[address] [place], [place] [address] Performed By: #### CMP, HBA1C, FREET3, FT4, TSH #### [place] [phone] (Bld) [#/Vol]6.57 10*3/uLNormal1.45-7.50[facility] on above:Order Comment: Specimen Type: BLOOD SPECIMENOrdering Facility: [facility] Address:[address] [place], [place] [address]Performed By: #### CMP, HBA1C, FREET3, FT4, TSH #### [address] [address] Zpwfjzfvylh/100 WBC (Bld)67.2 %NormalTrihealth Comment on above:Order Comment: Specimen Type: BLOOD SPECIMENOrdering Facility: [facility] Address:[address] [place] [address] Performed By: #### CMP, HBA1C, FREET3, FT4, TSH #### [address] [address] Llvurmuvv RBC (Bld) [#/Vol]10*3/uLNormal<0.01[facility] on above:Order Comment: Specimen Type: BLOOD SPECIMENOrdering Facility: [facility] Address:[address] [place], [place] [address]Performed By: #### CMP, HBA1C, FREET3, FT4, TSH #### [address] [address] Xvjgjocth RBC/100 WBC (Bld) [Ratio]0.0 /100 WBCNormalCCleveland Clinic South Pointe Hospitalment on above:Order Comment: Specimen Type: BLOOD SPECIMENOrdering Facility: [facility] Address:[address] [place], [place] [address]Performed By: #### CMP, HBA1C, FREET3, FT4, TSH #### [address] [address] Mfmwdgoy mean volume (Bld) [Entitic vol]10.4 fLNormal9.0-12.7 [facility] on above:Order Comment: Specimen Type: BLOOD SPECIMENOrdering Facility: [facility] Address:[address] [place], [place] [address]Performed By: #### CMP, HBA1C, FREET3, FT4, TSH #### [address] [address] Rtcogoucu (Bld) [#/Vol]371 10*3/sNZthguj589-143StedzyaleWestern Reserve Hospital on above:Order Comment: Specimen Type: BLOOD SPECIMENOrdering Facility: [facility] Address:[address] [place], [place] [address]Performed By: #### CMP, HBA1C, FREET3, FT4, TSH #### [facility] [address] [place] [address] RET (Bld) [#/Vol]4.72 10*6/uLNormal3.90-5.20[facility] on above:Order Comment: Specimen Type: BLOOD SPECIMENOrdering Facility: [facility] Address:[address] [place], [place] [address]Performed By: #### CMP, HBA1C, FREET3, FT4, TSH #### [address] [place] [address] ZIQ (Bld) [#/Vol]9.78 10*3/uLNormal3.70-11.00[facility] on above:Order Comment: Specimen Type: BLOOD SPECIMENOrdering Facility: [facility] Address:[address] [place], [place] [address]Performed By: #### CMP, HBA1C, FREET3, FT4, TSH #### [facility] [address] [place] [address] Fro Immature Gran0.04 k/uL<0.10 k/uLAvita Health System Bucyrus HospitalBasophils (Bld) [#/Vol]0.07 10*3/uL<0.11 k/uLBrooklyn ClinicBasophils/100 WBC (Bld)0.7 % [facility] HospitalDifferential cell count method Nom (Bld)AutoCSuburban Community Hospital & [facility] Eosinophils (Bld) [#/Vol]0.29 10*3/uL<0.46 k/uLAvita Health System Bucyrus HospitalEosinophils/100 WBC (Bld)3.0 %[facility] HospitalErythrocyte distribution width (RBC) [Ratio]12.3 % 11.5 - 15.0 %[facility] HospitalHematocrit (Bld) [Volume fraction]43.4 %36.0 - 46.0 %[facility] HospitalHemoglobin (Bld) [Mass/Vol]14.5 g/dL11.5 - 15.5 g/dLAvita Health System Bucyrus HospitalImmature Gran %0.4 %[facility] HospitalLymphocytes (Bld) [#/Vol]2.21 10*3/uL 1.00 - 4.00 k/uLAvita Health System Bucyrus HospitalLymphocytes/100 WBC (Bld)22.6 %[facility] MCH (RBC) [Entitic mass]30.7 pg26.0 - 34.0 pgClevelMedina HospitalMCHC (RBC) [Mass/Vol]33.4 g/dL30.5 - 36.0 g/dLAvita Health System Bucyrus HospitalMCV (RBC) [Entitic vol]91.9 fL80.0 - 100.0 fLClevelMedina HospitalMonocytes (Bld) [#/Vol]0.60 10*3/uL<0.87 k/uL [facility] HospitalMonocytes/100 WBC (Bld)6.1 %[facility] HospitalNeutrophils (Bld) [#/Vol]6.57 10*3/uL1.45 - 7.50 k/uLAvita Health System Bucyrus HospitalNeutrophils/100 WBC (Bld)67.2 %[facility] HospitalNucleated RBC (Bld) [#/Vol]10*3/uL<0.01 k/uLAvita Health System [facility] Nucleated RBC/100 WBC (Bld) [Ratio]0.0 /100 WBCAvita Health System Bucyrus HospitalPlatelet mean volume (Bld) [Entitic vol]10.4 fL9.0 - 12.7 fLClevelatrium health providence ClinicPlatelets (Bld) [#/Vol]371 10*3/uL150 - 400 k/uLAvita Health System Bucyrus HospitalRBC (Bld) [#/Vol]4.72 10*6/uL 3.90 - 5.20 m/uLAvita Health System Bucyrus HospitalWBC (Bld) [#/Vol]9.78 10*3/uL3.70 - 11.00 k/uL [facility] HospitalCNOVon [id number] Visit (RHEUMN) CANELO PATHAK ([id number]) 1965 F Date Time Provider Department 10/07/21 [...] mcg (5,000 unit) cap - Vitamin D [place] ([employer] for [employer]) Take 1 capsule by mouth daily with food. - montelukast (SINGULAIR) 10 mg tablet Take 10 mg by mouth daily at bedtime. - MULTIVIT-MINERALS/FERROUS GLUC (CENTRAM-CARE ORAL) Take by mouth twice daily. - esomeprazole mag trihydrate(NEXIUM 40 MG CAP) Take one(1) capsule daily. - mometasone furoate(NASONEX 50 MCG/ACTUATION SPRAY) [place] twice in each nostril once daily. - [...] [F41.1] Order(s):CBC + DIFF [SQCBCDIF] Order #: [id number] FUTURE PROTEIN ELECTROPHORESIS SERUM W/INTERP [SQSEPG] Order #: [id number] FUTURE venlafaxine ER (EFFEXOR XR) 37.5 mg 24 hr capsuletake one a day, if tolerated after two weeks increase to twoDisp: 60 capsuleRfl: 3 CO (more content not included)...NormalTrihealthComprehensive metabolic 2000 panelon 49-76-1513Lvigytn [Mass/Vol]4.8 g/dLNormal3.9-4.9 [facility] on above:Order Comment: Specimen Type: BLOOD SPECIMENOrdering Facility: [facility] Address:[address] [place], [place] [address]Performed By: #### CMP, HBA1C, FREET3, FT4, TSH #### [facility] [employer] [address] [place] [address] NHJ [Catalytic activity/Vol]72 U/MZdbtwt40-685AvgkjrdfeWestern Reserve Hospital on above:Order Comment: Specimen Type: BLOOD SPECIMENOrdering Facility: [facility] Address:[address] [place], [place] [address]Performed By: #### CMP, HBA1C, FREET3, FT4, TSH #### [facility] [employer] [address] [place] [address] LWK [Catalytic activity/Vol]24 U/LNormal7-38[facility] on above:Order Comment: Specimen Type: BLOOD SPECIMENOrdering Facility: [facility] Address:[address] [place], [place] [address]Performed By: #### CMP, HBA1C, FREET3, FT4, TSH #### [place] [address] Trbit gap [Moles/Vol]11 mmol/LNormal9-18[facility] Comment on above:Order Comment: Specimen Type: BLOOD SPECIMENOrdering Facility: [facility] Address:[address] [place] [address] Performed By: #### CMP, HBA1C, FREET3, FT4, TSH #### [place] [address] XDI [Catalytic activity/Vol]17 U/FHzqpxi56-63VxzbqqpvbTrihealthComforest view hospital on above:Order Comment: Specimen Type: BLOOD SPECIMENOrdering Facility: [facility] Address:[address] [place], [place] [address]Performed By: #### CMP, HBA1C, FREET3, FT4, TSH #### [place] [address] Afdwjbcod [Mass/Vol]0.5 mg/dLNormal0.2-1.3CToledo Hospital Comment on above:Order Comment: Specimen Type: BLOOD SPECIMENOrdering Facility: [facility] Address:[address] [place] [address] Performed By: #### CMP, HBA1C, FREET3, FT4, TSH #### [place] [address] Xljenhu [Mass/Vol]10.3 mg/dLHigh8.5-10.2CToledo Hospital Comment on above:Order Comment: Specimen Type: BLOOD SPECIMENOrdering Facility: [facility] Address:[address] [place] [address] Performed By: #### CMP, HBA1C, FREET3, FT4, TSH #### [place] [address] Inrbzxyv [Moles/Vol]100 mmol/OOouvwi79-411TujtwasznTrihealth Comment on above:Order Comment: Specimen Type: BLOOD SPECIMENOrdering Facility: [facility] Address:[address] [place] [address] Performed By: #### CMP, HBA1C, FREET3, FT4, TSH #### [place] [address] DW2 [Moles/Vol]28 mmol/UPzbmvh39-50HxnopfhdkTrihealthComment on above:Order Comment: Specimen Type: BLOOD SPECIMENOrdering Facility: [facility] Address:[address] [place] [address] Performed By: #### CMP, HBA1C, FREET3, FT4, TSH #### [place] [address] Txplozwikj [Mass/Vol]0.70 mg/dLNormal0.58-0.96TrihealthComment on above:Order Comment: Specimen Type: BLOOD SPECIMENOrdering Facility: [facility] Address:[address] [place], [place] [address]Performed By: #### CMP, HBA1C, FREET3, FT4, TSH #### [place] [address] KKZRTOAFW GLOMERULAR FILTRATION QFXV665 mL/min/1.73m???Normal>=60 [facility] on above:Order Comment: Specimen Type: BLOOD SPECIMENOrdering Facility: [facility] Address:[address] [place], [place] [address]Result Comment: Estimated Glomerular Filtration Rate (eGFR) is [...] #### CMP, HBA1C, FREET3, FT4, TSH #### [place] [address] [place] [address] Eweuadq [Mass/Vol]124 mg/qZRhuu39-26IaxnznjlyTrihealth Comment on above:Order Comment: Specimen Type: BLOOD SPECIMENOrdering Facility: [facility] Address:[address] [place], [place] [address] Result Comment: The [place] [employer] Association (ADA) provides guidance for cutoff [...] Standards of Medical Care in Diabetes 2016, [place] [employer] Association. Diabetes Care. 2016.39(Suppl 1).Performed By: #### CMP, HBA1C, FREET3, FT4, TSH #### [place] [address] Jmfmbmncg [Moles/Vol]4.1 mmol/LNormal3.7-5.1CToledo HospitalComment on above:Order Comment: Specimen Type: BLOOD SPECIMENOrdering Facility: [facility] Address:[address] [place] [id number] By: #### CMP, HBA1C, FREET3, FT4, TSH #### [place] [address] Snnnbeo [Mass/Vol]7.3 g/dLNormal6.3-8.0[facility] Comment on above:Order Comment: Specimen Type: BLOOD SPECIMENOrdering Facility: [facility] Address:[address] [place] [phone] Performed By: #### CMP, HBA1C, FREET3, FT4, TSH #### [place] [address] Pptbnw [Moles/Vol]139 mmol/TPjjywn366-931XdvszvoraTrihealth Comment on above:Order Comment: Specimen Type: BLOOD SPECIMENOrdering Facility: [facility] Address:[address] [place] [address] Performed By: #### CMP, HBA1C, FREET3, FT4, TSH #### [place] [address] Gzqa nitrogen [Mass/Vol]18 mg/dLNormal7-21[facility] Comment on above:Order Comment: Specimen Type: BLOOD SPECIMENOrdering Facility: [facility] Address:[address] [place] [address] Performed By: #### CMP, HBA1C, FREET3, FT4, TSH #### [place] [address] IPS A1Con [id number] glucose Estimated from glycated hemoglobin (Bld) [Mass/Vol]160 mg/dLNormalCToledo HospitalComment on above:Order Comment: Specimen Type: BLOOD SPECIMENOrdering Facility: [facility] Address:[address] [place], [place] [address]Result Comment: eAG: (Estimated average glucose) is a calculated value from HgbA1c and is wire rope sales representative of the average blood glucose level in the last 2-3 month period.Performed By: #### CMP, HBA1C, FREET3, FT4, TSH #### [place] [address] ZxB9d (Bld) [Mass fraction]7.2 %High4.3-5.6CMartin Memorial Hospital on above:Order Comment: Specimen Type: BLOOD SPECIMENOrdering Facility: [facility] Address:[address] [place], [place] [address]Result Comment: [place] [employer] guidelines indicate that patients with HgbA1c in the range 5.7-6.4% are at increased risk for development of diabetes, and intervention by lifestyle modification may be beneficial. HgbA1c greater or equal to 6.5% is considered diagnostic of diabetes.Performed By: #### CMP, HBA1C, FREET3, FT4, TSH #### [place] [address] VMRXSNA ELECTROPHORESIS SERUM (P)on [id number] [Mass/Vol]4.18 g/dLNormal3.37-4.23[facility] on above:Order Comment: Specimen Type: BLOOD SPECIMENOrdering Facility: [facility] Address:[address] [place], [place] [address]Performed By: #### CMP, HBA1C, FREET3, FT4, TSH #### [place] [address] Xrgll 1 globulin Elph [Mass/Vol]0.24 g/dLNormal0.18-0.31[facility] on above:Order Comment: Specimen Type: BLOOD SPECIMENOrdering Facility: [facility] Address:[address] [place], [place] [address]Performed By: #### CMP, HBA1C, FREET3, FT4, TSH #### [place] [address] Kvofs 2 globulin Elph [Mass/Vol]0.83 g/dLNormal0.52-0.97[facility] on above:Order Comment: Specimen Type: BLOOD SPECIMENOrdering Facility: [facility] Address:[address] [place], [place] [address]Performed By: #### CMP, HBA1C, FREET3, FT4, TSH #### [place] [address] Lofy globulin Elph [Mass/Vol]1.21 g/dLNormal0.84-1.36[facility] on above:Order Comment: Specimen Type: BLOOD SPECIMENOrdering Facility: [facility] Address:[address] [place], [place] [address]Performed By: #### CMP, HBA1C, FREET3, FT4, TSH #### [place] [address] Fmgso globulin Elph (Body fld) [Mass fraction]0.74 g/dLNormal 0.70-1.44[facility] on above:Order Comment: Specimen Type: BLOOD SPECIMENOrdering Facility: [facility] Address:[address] [place], [place] [address]Performed By: #### CMP, HBA1C, FREET3, FT4, TSH #### [place] [address] U-PROTEIN LOCATIONNormalCMartin Memorial Hospital on above: Order Comment: Specimen Type: BLOOD SPECIMENOrdering Facility: [facility] Address:[address] [place], [place] [address]Result Comment: Not Applicable.Performed By: #### CMP, HBA1C, FREET3, FT4, TSH #### [place] [address] [employer] Fractions [Interp]No definitive M protein is identified on protein electrophoresis.NormalNo definitive M protein is identified on protein electrophoresis.[facility] on above:Order Comment: Specimen Type: BLOOD SPECIMENOrdering Facility: [facility] Address:[address] [place], [place] [address]Performed By: #### CMP, HBA1C, FREET3, FT4, TSH #### [place] [address] Ymjhzro.monoclonal Elph [Mass/Vol]0.00 g/dLNormal<=0.00[facility] on above:Order Comment: Specimen Type: BLOOD SPECIMENOrdering Facility: [facility] Address:[address] [place], [place] [address]Performed By: #### CMP, HBA1C, FREET3, FT4, TSH #### [place] [address] DEJ STAFF REVIEWReviewed by Ginette Doyle MDNormalCMartin Memorial Hospital on above:Order Comment: Specimen Type: BLOOD SPECIMENOrdering Facility: [facility] Address:[address] [place], [place] [address]Performed By: #### CMP, HBA1C, FREET3, FT4, TSH #### [place] [address] Agbh SerPl-mCncon [id number] [Mass/Vol]7.2 g/dLNormal6.3-8.0 [facility] on above:Order Comment: Specimen Type: BLOOD SPECIMEN Ordering Facility: [facility] Address: [address] [place], [place] [address]Performed By: #### 2885-2 #### [facility] CLIA [id number] [address] [place], [place] [address]T3 FREE BLDon [id number] T3 [Mass/Vol]3.1 pg/mLNormal2.3-4.1CMartin Memorial Hospital on above: Order Comment: Specimen Type: BLOOD SPECIMENOrdering Facility: [facility] Address:[address] [place], [place] [address]Performed By: #### CMP, HBA1C, FREET3, FT4, TSH #### [place] [phone] FREE/FREE THYROXon [id number] T4 [Mass/Vol]2.5 ng/dLHigh 0.9-1.7CMartin Memorial Hospital on above:Order Comment: Specimen Type: BLOOD SPECIMENOrdering Facility: [facility] Address:[address] [place], [place] [address]Performed By: #### CMP, HBA1C, FREET3, FT4, TSH #### [place] [phone] SerPl-aCncon 61-85-6553SUC Qn0.228 m[IU]/LLow0.270-4.200 [facility] on above:Order Comment: Specimen Type: BLOOD SPECIMENOrdering Facility: [facility] Address:[address] [place] [id number] By: #### CMP, HBA1C, FREET3, FT4, TSH #### [facility] [address] [place], [place] [address] CVTObl [id number] (ENDOMN) CANELO PATHAK ([id number]) 1965 F Date Time Provider Department 10/03/21 ASAD ANSARI During your visit today, we recorded the following information about you: Renea Mcfarland [employer]ter 10/03/2021 3:05 PM Addendum Patient called in [...] Fully Assessed Reason for Visit: Lab Orders [2858] Primary Visit Diagnosis:Acquired hypothyroidism [E03.9] Other Visit Diagnosis:Controlled type 2 diabetes mellitus without complication, without long-term current use of insulin (HCC) [E11.9] Order(s):TSH BLD [SQTSH] Order #: [id number] FUTURE T4 FREE/FREE THYROX [SQFT4] Order #: [id number] FUTURE T3 FREE BLD [SQFREET3] Order #: [id number] FUTURE COMP METABOLIC PANEL [SQCMP] Order #: [id number] FUTURE HGB A1C [SKNGU1T] Order #: [id number] FUTURE Prescriptions as of 10/05/2021 - metFORMIN ER (GLUCOPHAGE XR) 500 mg 24 hr tablet Take 2 tablets by mouth twice daily. - levothyroxine (SYNTHROID) 112 mcg tablet Take 2 tablets by mouth once daily. - cyclobenzaprine (FLEXERIL) 10 mg tablet - Cholecalciferol, Vitamin D3, 125 mcg (5,000 unit) cap - Vitamin D [place] ([employer]) Take 1 capsule by mouth daily with food. - montelukast (SINGULAIR) 10 mg tablet Take 10 mg by mouth daily at bedtime. - MULTIVIT-MINERALS/FERROUS GLUC (CENTRAM-CARE ORAL) Take by mouth twice daily. - esomeprazole mag trihydrate(NEXIUM 40 MG CAP) Take one(1) capsule daily. - mometasone furoate(NASONEX 50 MCG/ACTUATION SPRAY) [place] twice in each nostril once daily. - cetirizine hcl(ZYRTEC 10 MG TAB) Take one(1) tablet daily. - fluticasone/salmeterol(ADVAIR DISKUS 250 MCG-50 MCG/DOSE FOR INHALATION) Take one(1) inhalation twice daily; rinse and gargle mouth with water after each use. 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 Gin Jesus.MB [Mass/Vol]0.66 ng/mLNormal<=3.60[facility] Comment on above:Performed By: #### FT3, CMP, LIPID, TSH #### [facility] [address] [place] [address] Dr. Gin AmosTROP6.4 pg/mLNormal4.0-51.3The [facility] HospitalComment on above:Result Comment: CUT-OFF POINTS HAVE BEEN ESTABLISHED BASED ON THE FOURTH UNIVERSAL DEFINITIONS OF MYOCARDIAL INFARCTION. THE UPPER REFERENCE LIMIT (URL) OF TROPONIN, DEFINED THE 99TH PERCENTILE OF cTnI DISTRIBUTION IN A REFERENCE POPULATION, HAS BEEN CONFIRMED THE DECISION THRESHOLD FOR [place] DIAGNOSIS.Performed By: #### FT3, CMP, LIPID, TSH #### [facility] [address] [place] [address] Dr. Gin CliftonO28 ng/mLNormal9-82[facility] HospitalComment on above: Performed By: #### FT3, CMP, LIPID, TSH #### [facility] [address] [place] [address] Dr. Gin Salter AUTO DIFFon [id number] #0.1 103/ulNormal0.0-0.1The [facility] HospitalComment on above:Performed By: #### A1C #### [facility] [address] [place] [address] Dr. Gin ChewBasophils/100 WBC (Bld)0.7 %Normal0.2-2.0[facility] Comment on above:Performed By: #### A1C #### [facility] [address] [place] [address] [address] Gin Carlton #0.5 103/ulNormal0.0-0.7The [facility] HospitalComment on above: Performed By: #### A1C #### [facility] [address] [place] [address] Dr. Gin Reganosinophils/100 WBC (Bld)4.4 %Normal0.9-7.0The [facility] Comment on above:Performed By: #### A1C #### [facility] [address] [place] [address] Dr. Gin Reganrythrocyte distribution width (RBC) [Ratio]12.7 %Dinexb93.0-15.0 The [facility] HospitalComment on above:Performed By: #### A1C #### [facility] [address] [place] [address] Dr. Gin ChewHematocrit (Bld) [Volume fraction]42.2 %Dcrhhq23.0-48.0The [facility] HospitalComment on above:Performed By: #### A1C #### [facility] [address] [place] [address] Dr. Gin ChewHemoglobin (Bld) [Mass/Vol]14.1 g/kCGwihrr73.0-16.0The [facility] HospitalComment on above:Performed By: #### A1C #### [facility] [address] [place] [address] Dr. Gin Harris #0.10 10e3/ulCritically high0.00-0.03The [facility] Comment on above:Performed By: #### A1C #### [facility] [address] [place] [address] Dr. Gin Harris %0.9 %Critically high0.0-0.5The [facility] HospitalComment on above:Performed By: #### A1C #### [facility] [address] [place] [address] Dr. Gin WhitakerH #3.4 103/ulNormal1.2-3.8The [facility] HospitalComment on above:Performed By: #### A1C #### [facility] [address] [place] [address] Dr. Gin ChewLymphocytes/100 WBC (Bld)29.9 %Upqkbj68.5-60.0The [facility] HospitalComment on above:Performed By: #### A1C #### [facility] [address] [place] [address] Dr. Gin JangUAL DIFF REQNONormalThe [facility] HospitalComment on above: Performed By: #### A1C #### [facility] [address] [place] [address] Dr. Gin Love (RBC) [Entitic mass]31.0 ntQoozms00.7-34.0The [facility] HospitalComment on above:Performed By: #### A1C #### [facility] [address] [place] [address] Dr. Gin Love (RBC) [Mass/Vol]33.4 g/aUUzpykr77.9-35.2The [facility] HospitalComment on above:Performed By: #### A1C #### [facility] [address] [place] [address] Dr. Gin Love (RBC) [Entitic vol]92.7 vMRufipv17.0-99.0The [facility] HospitalComment on above:Performed By: #### A1C #### [facility] [address] [place] [address] Dr. Gin Reyes #0.7 103/ulNormal0.3-0.8The [facility] HospitalComment on above:Performed By: #### A1C #### [facility] [address] [place] [address] Dr. Gin Mathiasocytes/100 WBC (Bld)6.5 %Normal1.7-12.0The [facility] Comment on above:Performed By: #### A1C #### [facility] [address] [place] [address] Dr. Gin Romero #6.5 103/ulNormal1.4-6.5The [facility] HospitalComment on above:Performed By: #### A1C #### [facility] [address] [place] [address] [address] Gin ChewNeutrophils/100 WBC (Bld)57.6 %Imfxwk01.0-75.0The [facility] HospitalComment on above:Performed By: #### A1C #### [facility] [address] [place] [address] [address] Gin ChewPlatelet mean volume (Bld) [Entitic vol]10.1 fLNormal9.5-13.5The [facility] HospitalComment on above:Performed By: #### A1C #### [facility] [address] [place] [address] Dr. Gin ChewPLT349 103/tpGlzxei686-598Nxv [facility] HospitalComment on above: Performed By: #### A1C #### [facility] [address] [place] [address] Dr. Gin ChewRBC4.55 106/ulNormal4.20-5.40The [facility] HospitalComment on above:Performed By: #### A1C #### [facility] [address] [place] [address] Dr. Gin ChewWBC11.3 103/ulCritically high4.0-11.0The [facility] HospitalComment on above:Performed By: #### A1C #### [facility] [address] [place] [address] Dr. Gin ChewCT ABD/PELVIS WO CONon [id number] ABD/PELVIS WO CONEXAMINATION: CT ABD/PELVIS WO CON, [...] Electronically authenticated by: JEFF PATHAK Date: 2021-09-28 10:31[facility] HospitalPOINT OF CARE GLUCOSEon [id number] [Mass/Vol]129 mg/dL Critically ekym55-766Bbi [facility] HospitalComment on above:Performed By: #### FT3, CMP, LIPID, TSH #### [facility] [address] [place] [address] Dr. Gin ChewPROF 14(COMP METB)on 63-33-9252Yftieky [Mass/Vol]3.7 g/dLNormal 3.4-5.0The [facility] on above:Performed By: #### FT3, CMP, LIPID, TSH #### [facility] [address] [place] [address] Dr. Gin ChewAlbumin/Globulin [Mass ratio]1.1 {ratio}NormalThe [facility] on above:Performed By: #### FT3, CMP, LIPID, TSH #### [facility] [address] [place] [address] Dr. Gin Cm [Catalytic activity/Vol]79 U/WXkqywo88-638Jjy [facility] on above:Performed By: #### FT3, CMP, LIPID, TSH #### [facility] [address] [address] [address] Gin Vera [Catalytic activity/Vol]28 U/RDeanir04-08Tye [facility] on above:Performed By: #### FT3, CMP, LIPID, TSH #### [facility] [address] [place] [address] Dr. Gin Hayes gap [Moles/Vol]9.9 mmol/LNormalThe [facility] HospitalComment on above:Performed By: #### FT3, CMP, LIPID, TSH #### [facility] [address] [place] [address] [address] Gin ChewAST [Catalytic activity/Vol]15 U/WJwqyut66-69Nfm [facility] HospitalComment on above:Performed By: #### FT3, CMP, LIPID, TSH #### [facility] [address] [address] [address] Gin ChewBilirubin [Mass/Vol]0.3 mg/dLNormal0.2-1.0The [facility] Comment on above:Performed By: #### FT3, CMP, LIPID, TSH #### [facility] [address] [place] [address] Dr. Gin ChewCalcium [Mass/Vol]9.2 mg/dLNormal8.5-10.1The [facility] Comment on above:Performed By: #### FT3, CMP, LIPID, TSH #### [facility] [address] [place] [address] [address] Gin ChewChloride [Moles/Vol]100 mmol/PWdrwvd00-167Iet [facility] Comment on above:Performed By: #### FT3, CMP, LIPID, TSH #### [facility] [address] [address] [address] Gin ChewCO2 [Moles/Vol]32.1 mmol/LCritically high21.0-32.0The [facility] HospitalComment on above:Performed By: #### FT3, CMP, LIPID, TSH #### [facility] [address] [place] [address] Dr. Gin ChewCreatinine [Mass/Vol]0.75 mg/dLNormal0.55-1.02The [facility] HospitalComment on above:Performed By: #### FT3, CMP, LIPID, TSH #### [facility] [address] [place] [address] Dr. Greenfield ChangEGFR-AF BAHRAINI>60Normal>=60The [facility] HospitalComment on above:Performed By: #### FT3, CMP, LIPID, TSH #### [facility] [address] [address] [address] Gin ReganGFR-NON AF BAHRAINI>60Normal>=60The [facility] HospitalComment on above:Performed By: #### FT3, CMP, LIPID, TSH #### [facility] [address] [address] [address] Gin ChewGlobulin (S) [Mass/Vol]3.4 g/dLNormalThe [facility] HospitalComment on above:Performed By: #### FT3, CMP, LIPID, TSH #### [facility] [address] [address] [address] Gin ChewGlucose [Mass/Vol]138 mg/dLCritically erxq58-451Ujp [facility] HospitalComment on above:Performed By: #### FT3, CMP, LIPID, TSH #### [facility] [address] [place] [address] Dr. Gin ChewPotassium [Moles/Vol]4.0 mmol/LNormal3.5-5.1The [facility] Comment on above:Performed By: #### FT3, CMP, LIPID, TSH #### [facility] [address] [address] [address] Gin ChewProtein [Mass/Vol]7.1 g/dLNormal6.4-8.2The [facility] Comment on above:Performed By: #### FT3, CMP, LIPID, TSH #### [facility] [address] [address] [address] Gin ChewSodium [Moles/Vol]138 mmol/YEtjtyp751-813Mzi [facility] Comment on above:Performed By: #### FT3, CMP, LIPID, TSH #### [facility] [address] [place] [address] Dr. Gin ChewUrea nitrogen [Mass/Vol]17.0 mg/dLNormal7.0-18.0The [facility] HospitalComment on above:Performed By: #### FT3, CMP, LIPID, TSH #### [facility] [address] [place] [address] Dr. Gin ChewUrea nitrogen/Creatinine [Mass ratio]22.7 mg/mgNoDayton Children's HospitalComment on above:Performed By: #### FT3, CMP, LIPID, TSH #### [facility] [address] [place] [address] Dr. Gin ChewPROTIMEon [id number] Coag (PPP) [Relative time]0.94 {INR} NormalAvita Health System Bucyrus HospitalComment on above:Performed By: #### BMP #### [facility] [address] [place] [address] Dr. Gin Victoria GUIDELINESSEE BELOWBrecksville VA / Crille HospitalComment on above:Result Comment: DESIRED INR: 2.0 - 3.0 CONDITIONS NOT LISTED BELOW 2.5 - 3.5 FOR PROSTHETIC HEART VALVE REPLACEMENT 2.5 - 3.5 RECURRENT THROMBOSIS Performed By: #### BMP #### [facility] [address] [place] [address] Dr. Gin ChewPT Coag (PPP) [Time]10.2 sNormal9.0-11.6The [facility] Comment on above:Performed By: #### BMP #### [facility] [address] [place] [address] Dr. Gin Jimenez 16-89-1764mDZG Coag (Bld) [Time]26.9 eEgdzyn79.3-36.2[facility] HospitalComment on above:Performed By: #### BMP #### [facility] [address] [place] [address] Dr. Gin Quiroz, HIGH SENSITIVITYon 86-68-0047RPHQIR0.3 pg/mLNormal 4.0-51.3The [facility] HospitalComforest view hospital on above:Result Comment: CUT-OFF POINTS HAVE BEEN ESTABLISHED BASED ON THE FOURTH UNIVERSAL DEFINITIONS OF MYOCARDIAL INFARCTION. THE UPPER REFERENCE LIMIT (URL) OF TROPONIN, DEFINED THE 99TH PERCENTILE OF cTnI DISTRIBUTION IN A REFERENCE POPULATION, HAS BEEN CONFIRMED THE DECISION THRESHOLD FOR [place] DIAGNOSIS.Performed By: #### BMP #### [facility] [address] [place] [address] Dr. Yilan ChangXR CHEST 1 Von [id number] CHEST 1 VEXAMINATION: XR CHEST 1 V [...] Electronically authenticated by: JEFF PATHAK Date: 2021-09-28 09:20[facility] [id number] (ENDOMN) CANELO PATHAK ([id number]) 1965 F Date Time Provider Department 07/21/21 [...] to please review allergies and medications [facility] ensure [facility] are correct. Allergies As [...] mcg (5,000 unit) cap - Vitamin D [place] ([employer]) Take 1 capsule by mouth daily with food. - montelukast (SINGULAIR) 10 mg tablet Take 10 mg by mouth daily at bedtime. - MULTIVIT-MINERALS/FERROUS GLUC (CENTRAM-CARE ORAL) Take by mouth twice daily. - esomeprazole mag trihydrate(NEXIUM 40 MG CAP) Take one(1) capsule daily. - mometasone furoate(NASONEX 50 MCG/ACTUATION SPRAY) [place] twice in each nostril once daily. - cetirizine hcl(ZYRTEC 10 MG TAB) Take one(1) tablet daily. - fluticasone/salmeterol(ADVAIR DISKUS 250 MCG-50 MCG/DOSE FOR INHALATION) Take one(1) inhalation twice daily; rinse and gargle mouth with water after each use. 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] 09/20/2015 Metabolic syndrome [E88.81] 09/20/2015 Sensorineural hearing loss, bilateral [H90.3] 12/16/2018 Encounter Status:Closed by LUAN BIRMINGHAM on 07/21/21No[facility] [id number] (ENDOMN) LAWSONCANELO ([id number]) 1965 F Date Time Provider Department 06/22/21 ASAD ANSARI During your visit today, we recorded the following information about you: Neema Gunderson Adm 06/22/2021 9:10 AM Signed Patient called in requesting the results of her labs that she had completed on 06/16/2021 Canelo can be reached at [phone] (c) or can be reached through [employer]. Allergies As of Date: 06/22/2021 Noted Allergy [...] Fully Assessed Reason for Visit: Patient Question [8777] Prescriptions as of 05/10/2022 - levothyroxine (SYNTHROID) [...] daily. - mometasone furoate(NASONEX 50 MCG/ACTUATION SPRAY) [place] twice in each nostril once daily. - [...] 12/16/2018 Encounter Status:Closed by NEEMA HIGGINBOTHAM on 05/10/22NoMain Campus Medical CenterTal [id number] Visit (ENDOMN) CANELO PATHAK ([id number]) 1965 F Date Time Provider Department 06/16/21 1:20 PM ASAD ANSARI During your visit today, we recorded the following information about you: Pulse Blood pressure Weight 87/minute 168/97 128.7 kg Aracelis Rivers Ma 06/16/2021 12:23 PM Signed Thank you for choosing the [facility] Department of Endocrinology, Diabetes and Metabolism. Did you know that you need to call 48 hours in advance of your scheduled visit, if you are unable to make your appointment? The Endocrinology [facility] Metabolism [place] thanks you for your commitment, because patients not showing to their appointment results in a lost opportunity for patients to receive [facility] health care at the [facility]. To Cancel an appointment, please choose one of the following: - Call the Appointment Call Center at [phone] - From [employer] [facility], Go to Appointments ? Cancel Appts If cancelling, consider your need to reschedule to prevent further delays in your care. To Schedule an appointment, please choose one of the following: - Call the Appointment Call Center at [phone] - From [employer] [place] [place], Go to Appointments ? Request an Appt Asad Ansari MD 06/16/2021 1:56 PM Signed Last Visit: This is the first visit. Ms. Pathak is here for follow up regarding her DM Type 2 and hypothyroidism. Current Immunizations: Most Recent Immunizations Administered Date(s) Administered COVID-19 vaccine, age 12+ yr ([employer] - PURPLE TOP) 09/23/2020 PHYSICAL EXAMINATION: BP [...] mouth daily before breakfast. - Vitamin D [place] ([employer]) Take 1 capsule by mouth daily with food. - montelukast (SINGULAIR) 10 mg tablet Take 10 mg by mouth daily at bedtime. - MULTIVIT-MINERALS/FERROUS GLUC (CENTRAM-CARE ORAL) Take by mouth twice daily. - esomeprazole mag trihydrate(NEXIUM 40 MG CAP) Take one(1) capsule daily. - mometasone furoate(NASONEX 50 MCG/ACTUATION SPRAY) [place] twice in each nostril once daily. - [...] focal signs. No tremors. (more content not included)...NormalRegency Hospital [facility] Metabolic Panelon [id number] [Mass/Vol]4.6 g/dL Normal3.9-4.9CToledo HospitalComment on above:Performed By: #### CMP, HBA1C, FREET3, FT4, TSH #### [place] [address] LVG [Catalytic activity/Vol]83 U/TQkrylq50-015LwjvwolteWestern Reserve Hospital on above:Performed By: #### CMP, HBA1C, FREET3, FT4, TSH #### [place] [address] TVM [Catalytic activity/Vol]28 U/LNormal7-38[facility] on above:Performed By: #### CMP, HBA1C, FREET3, FT4, TSH #### [address] [address] Ojvtn gap [Moles/Vol]12 mmol/LNormal9-18[facility] Comment on above:Performed By: #### CMP, HBA1C, FREET3, FT4, TSH #### [address] [address] BDR [Catalytic activity/Vol]25 U/VVqbdfy39-90LflaclmpsWestern Reserve Hospital on above:Performed By: #### CMP, HBA1C, FREET3, FT4, TSH #### [place] [id number] Yxxjrtrwx [Mass/Vol]0.4 mg/dLNormal0.2-1.3[facility] [place] Comment on above:Performed By: #### CMP, HBA1C, FREET3, FT4, TSH #### [place] [address] Wvjfdtv [Mass/Vol]10.0 mg/dLNormal8.5-10.2CToledo Hospital Comment on above:Performed By: #### CMP, HBA1C, FREET3, FT4, TSH #### [place] [address] Zqntyhmq [Moles/Vol]102 mmol/HCuxsgr25-357WugcjlsgtTrihealth Comment on above:Performed By: #### CMP, HBA1C, FREET3, FT4, TSH #### [place] [address] UU6 [Moles/Vol]27 mmol/YDspewo62-40LfecufsscTrihealthComment on above:Performed By: #### CMP, HBA1C, FREET3, FT4, TSH #### [place] [address] Ngzflppayd [Mass/Vol]0.74 mg/dLNormal0.58-0.96[facility]healthComment on above:Performed By: #### CMP, HBA1C, FREET3, FT4, TSH #### [place] [address] pDVN- Amer.>60NormalCToledo HospitalComment on above:Performed By: #### CMP, HBA1C, FREET3, FT4, TSH #### [place] [address] hCKF-All Other Races>60NormalCToledo HospitalComforest view hospital on above:Result Comment: eGFR (Estimated GFR) [...] #### CMP, HBA1C, FREET3, FT4, TSH #### [facility] [address] [place], [place] [id number] [phone] [Mass/Vol]106 mg/sQGdxh12-37CjgzcdzkpTrihealth Comment on above:Result Comment: The [place] Diabetes Association (ADA) provides guidance for cutoff [...] Standards of Medical Care in Diabetes 2016, [place] [employer]. Diabetes Care. 2016.39(Suppl 1).Performed By: #### CMP, HBA1C, FREET3, FT4, TSH #### [facility] [address] [place] [place], [place] [id number] [phone] [Moles/Vol]3.9 mmol/LNormal3.7-5.1CToledo HospitalComment on above:Performed By: #### CMP, HBA1C, FREET3, FT4, TSH #### [facility] [address] [place], [place] [id number] [phone] [Mass/Vol]7.2 g/dLNormal6.3-8.0[facility] Comment on above:Performed By: #### CMP, HBA1C, FREET3, FT4, TSH #### [place] [phone] [Moles/Vol]141 mmol/AKsknqn376-871OgdjyqcykTrihealth Comment on above:Performed By: #### CMP, HBA1C, FREET3, FT4, TSH #### [place] [phone] nitrogen [Mass/Vol]15 mg/dLNormal7-21[facility] Comment on above:Performed By: #### CMP, HBA1C, FREET3, FT4, TSH #### [place] [address] Exzn T3on 50-96-4112Tirq T3 [Mass/Vol]2.8 pg/mLNormal2.3-4.1 [facility]Comment on above:Performed By: #### CMP, HBA1C, FREET3, FT4, TSH #### [place] [address] Sbka T4on 38-44-7854Gauk T4 [Mass/Vol]2.0 ng/dLHigh0.9-1.7CMartin Memorial Hospital on above:Performed By: #### CMP, HBA1C, FREET3, FT4, TSH #### [place] [address] Tsvqnetdcl A1con 10-86-6758Jdwvzsl [Mass/Vol]169 mg/dLNormal [facility] on above:Result Comment: eAG: (Estimated average glucose) is a calculated value from HgbA1c and is wire rope sales representative of the average blood glucose level in the last 2-3 month period.Performed By: #### CMP, HBA1C, FREET3, FT4, TSH #### [place] [address] AwW4o (Bld) [Mass fraction]7.5 %High4.3-5.6CMartin Memorial Hospital on above:Result Comment: [place] [employer] Association guidelines indicate that patients with HgbA1c in the range 5.7-6.4% are at increased risk for development of diabetes, and intervention by lifestyle modif ication may be beneficial. 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 demyelinating disease (HCC) ICD10, multiple headaches , [...] Signed by: Briana Rosas MD 09/26/18 Final resultNormHighlands Behavioral Health System Vital Signs Date TimeVital SignValuePerforming [id number] 11:11-0400Body .1 cmDavisergio Dontrell DO Work Phone: 1([phone])[address] [place], [place] 5157110-30-2025 11:11-0400 Body mass index (BMI) [Ratio]43.7 kg/z1Joclv Dontrell DO Work Phone: [phone])[address] [place], [place] 5157110-30-2025 11:11-0400 Body hcncuwmhqkr06.5 [degF]Jeff Jon DO Work Phone: 1419)[address] [place], [place] 5157110-30-2025 11:11-0400 Body yinbig490.29 kgDavisergio Dontrell DO Work Phone: 1419)[address] [place], [place] [address]7110-30-2025 11:11-0400 Diastolic blood oejjukis00 mm[Hg]Jeff Jon DO Work Phone: 1419)[address] [place], [place] [address]7110-30-2025 11:11-0400 Heart rate79 /minDavid Dontrell DO Work Phone: 1(123)[address] [place], [place] 5157110-30-2025 11:11-0400 SaO2% (BldA) [Mass fraction]96 %Jeff Jon DO Work Phone: 1419)[address] [place], [place] [address]7110-30-2025 11:11-0400 Systolic blood wstvetiz821 mm[Hg]Jeff Dontrell DO Work Phone: 1419)[address] [place], [place] [address]7110-13-2025 11:50-0400 Body .1 cmDavisergio Dontrell DO Work Phone: 1419)[address] [place], [place] 5157110-13-2025 11:50-0400 Body mass index (BMI) [Ratio]43.7 kg/j7Tubhg Dontrell DO Work Phone: 1419)[address] [place], [place] 5157110-13-2025 11:50-0400 Body ohxcnjoxnjc39.7 [degF]Jeff Jon DO Work Phone: 1(689)[address] [place], [place] 5157110-13-2025 11:50-0400 Body afoluf202.29 kgDakorin Jon DO Work Phone: 1(785)[address] [place], [place] 5157110-13-2025 11:50-0400 Diastolic blood wdxpohuv80 mm[Hg]Jeff Jon DO Work Phone: 1(859)[address] [place], [place] 5157110-13-2025 11:50-0400 Heart rate85 /minDavisergio Jon DO Work Phone: 1(126)[address] [place], [place] 5157110-13-2025 11:50-0400 SaO2% (BldA) [Mass fraction]99 %Jeff Jon DO Work Phone: 1(478)[address] [place], [place] 5157110-13-2025 11:50-0400 Systolic blood jrtkyhhr545 mm[Hg]Jeff Jon DO Work Phone: 1(036)[address] [place], [place] 5157110-07-2025 11:15-0400 Diastolic blood mm[Hg]Jeff Jon DO Work Phone: 1(674)[address] [place], [place] 5157110-07-2025 11:15-0400 Systolic blood hzaiftfp725 mm[Hg]Jeff Jon DO Work Phone: 1(375)[address] [place], [place] 5157110-07-2025 10:48-0400 Body qeofdk207.1 cmDakorin Jon DO Work Phone: 1(673)[address] [place], [place] 5157110-07-2025 10:48-0400 Body mass index (BMI) [Ratio]43.7 kg/o6Paxhfkorin Jon DO Work Phone: 1(522)[address] [place], [place] 5157110-07-2025 10:48-0400 Body bpujtrbjgfh39.9 [degF]Jeff Jon DO Work Phone: 1(437)[address] [place], [place] 5157110-07-2025 10:48-0400 Body hegqgh148.29 kgDakorin Jon DO Work Phone: 1(095)[address]10-07-2025 10:48-0400 Heart rate90 /minDavid Girvin DO Work Phone: 1(972)[address] [place], [place] 5157110-07-2025 10:48-0400 SaO2% (BldA) [Mass fraction]97 %Jeff Jon DO Work Phone: 1(822)[address] [place], [place] 5157107-21-2025 09:40-0400 Diastolic blood zkvipzfc50 mm[Hg]Jeff Jon DO Work Phone: 1(664)[address] [place], [place] 5157107-21-2025 09:40-0400 Systolic blood whisqbhe897 mm[Hg]Jeff Jon DO Work Phone: 1(343)[address] [place], [place] 5157107-21-2025 09:37-0400 Body fjeqnp907.1 cmDavid Girvin DO Work Phone: 1(795)[address] [place], [place] 5157107-21-2025 09:37-0400 Body mass index (BMI) [Ratio]46.7 kg/v8Qhuxx Girvin DO Work Phone: 1(347)[address] [place], [place] 5157107-21-2025 09:37-0400 Body auueug322.45 kgDavid Girvin DO Work Phone: 1(967)[address] [place], [place] 5157107-21-2025 09:37-0400 Heart rate85 /minDavid Girvin DO Work Phone: 1(920)[address] [place], [place] 5157107-21-2025 09:37-0400 Respiratory rate20 /minDavid Girvin DO Work Phone: 1(304)[address] [place], [place] 5157107-21-2025 09:37-0400 SaO2% (BldA) [Mass fraction]96 %Jeff Jon DO Work Phone: 1(685)[address] [place], [place] 5157107-10-2025 11:36-0400 Body zoqcfm351.1 cmDavid Girvin DO Work Phone: 1(888)[address] [place], [place] 5157107-10-2025 11:36-0400 Body mass index (BMI) [Ratio]46.4 kg/k1Svmkr Girvin DO Work Phone: 1(349)[address]07-10-2025 11:36-0400 Body prqweusfvkm35.9 [degF]Jeff Jon DO Work Phone: 1(197)[address] [place], [place] 5157107-10-2025 11:36-0400 Body kabhnn044.55 kgDakorin Jon DO Work Phone: 1(464)[address] [place], [place] 5157107-10-2025 11:36-0400 Diastolic blood yvhdvxgi09 mm[Hg]Jeff Jon DO Work Phone: 1(870)[address] [place], [place] 5157107-10-2025 11:36-0400 Heart rate90 /minDbalbina Jon DO Work Phone: 1(850)[address] [place], [place] 5157107-10-2025 11:36-0400 SaO2% (BldA) [Mass fraction]95 %Jeff Jon DO Work Phone: 1(461)[address] [place], [place] 5157107-10-2025 11:36-0400 Systolic blood mm[Hg]Jeff Jon DO Work Phone: 1(547)[address] [place], [place] 5157104-21-2025 10:10-0400 Diastolic blood mm[Hg]Jeff Jon DO Work Phone: 1(518)[address] [place], [place] 5157104-21-2025 10:10-0400 Systolic blood unbahwdf207 mm[Hg]Jeff Jon DO Work Phone: 1(170)[address] [place], [place] 5157104-21-2025 10:05-0400 Body civzfq222.1 cmDakorin Jon DO Work Phone: 1(296)[address] [place], [place] 5157104-21-2025 10:05-0400 Body mass index (BMI) [Ratio]45.7 kg/j9Qxiulkorin Jon DO Work Phone: 1(674)[address] [place], [place] 5157104-21-2025 10:05-0400 Body cysgzuesqjd93.9 [degF]Jeff Jon DO Work Phone: 1(355)[address] [place], [place] 5157104-21-2025 10:05-0400 Body fjefrg318.73 kgDavisergio Shanevin DO Work Phone: 1(500)[address]04-21-2025 10:05-0400 Heart rate92 /Juanasergio Acostavin DO Work Phone: 1419)[address] [place], [place] 5157104-21-2025 10:05-0400 Respiratory rate20 /minDkhaisergio Girvin DO Work Phone: 1419)[address] [place], [place] 5157104-21-2025 10:05-0400 SaO2% (BldA) [Mass fraction]96 %Jeff Dontrell DO Work Phone: 1419)[address] [place], [place] 5157104-14-2025 14:36-0400 Body .1 cmDavisergio Acostavin DO Work Phone: 1419)[address] [place], [place] 5157104-14-2025 14:36-0400 Body mass index (BMI) [Ratio]46.9 kg/k7Qurrm Dontrell DO Work Phone: 1419)[address] [place], [place] 5157104-14-2025 14:36-0400 Body nryijuaejzg13.6 [degF]Jeff Acostacassi DO Work Phone: 1(385)[address] [place], [place] 5157104-14-2025 14:36-0400 Body mnmdiq515.91 kgDakorin Shanevin DO Work Phone: 1(256)[address] [place], [place] 5157104-14-2025 14:36-0400 Diastolic blood jxqevefx33 mm[Hg]Jeff Jon DO Work Phone: 1419)[address] [place], [place] 5157104-14-2025 14:36-0400 Heart rate99 /Josué Shanevin DO Work Phone: 1419)[address] [place], [place] 5157104-14-2025 14:36-0400 Systolic blood dbjkxxin884 mm[Hg]Jeff Jon DO Work Phone: 1(090)[address] [place], [place] 5157103-14-2025 09:55-0400 Body oyzvtb157.1 cmDavisergio Shanevin DO Work Phone: 1(975)[address] [place], [place] 5157103-14-2025 09:55-0400 Body jkruwn238.73 kgDavid Dontrell DO Work Phone: [facility]02-26-2025 10:31-0500 Body .1 cm[facility]02-26-2025 10:31-0500Body mass index (BMI) [Ratio]46 kg/u8TpvmujeorSelect [facility]02-26-2025 10:31-0500Body .64 kg[facility]01-24-2025 11:14-0500Body ftoolw560.1 cm[facility]01-24-2025 11:14-0500Body mass index (BMI) [Ratio]46 kg/x1RcjvlbmfsSelect Medical [facility] 06-13-2024 11:14-0500Body mskefkqvabd90.8 [degF][facility]01-24-2025 11:14-0500Body ecvihd293.64 kg[facility] 06-13-2024 11:14-0500Diastolic blood zmityspc21 mm[Hg][facility]01-24-2025 11:14-0500Heart rate92 /[facility] 06-13-2024 11:14-5079LpC7% (BldA) [Mass fraction]94 %[facility]01-24-2025 11:14-0500Systolic blood cicntcaj720 mm[Hg][facility]01-14-2025 11:45-0500Body .81 kg[facility]01-14-2025 11:45-0500Diastolic blood juhllzqu32 mm[Hg][facility]01-14-2025 11:45-0500Heart rate91 /[facility]01-14-2025 11:45-0494ApX8% (BldA) [Mass fraction]97 %[facility]01-14-2025 11:45-0500Systolic blood gjfehebj689 mm[Hg] [facility]11-22-2024 11:52-0500Body .1 cm [facility]11-22-2024 11:52-0500Body mass index (BMI) [Ratio]45.1 kg/p7RvtxfohmsSelect Medical [facility]11-22-2024 11:52-0500Body .2 [degF][facility]11-22-2024 11:52-0500Body ebpxkv578.92 kg[facility]11-22-2024 11:52-0500Diastolic blood aefsrpov00 mm[Hg][facility]11-22-2024 11:52-0500 Heart rate86 /[facility]11-22-2024 11:52-7174BtM8% (BldA) [Mass fraction]94 %[facility]11-22-2024 11:52-0500 Systolic blood nwokbkxk642 mm[Hg][facility]11-06-2024 11:37-0500Body luphvf372.1 cmSelect [facility]11-06-2024 11:37-0500Body mass index (BMI) [Ratio]45.4 kg/a9YnzhimdbdSelect Medical [facility]11-06-2024 11:37-0500Body nxfdhpmugyx30.4 [degF][facility]11-06-2024 11:37-0500Body liuywg488.83 kg[facility]11-06-2024 11:37-0500Diastolic blood mm[Hg][facility]11-06-2024 11:37-0500Heart rate78 /[facility]11-06-2024 11:37-0500Respiratory rate20 /[facility]11-06-2024 11:37-1654KdW7% (BldA) [Mass fraction]97 %[facility]11-06-2024 11:37-0500Systolic blood wecuazpu504 mm[Hg][facility]09-24-2024 11:53-0400Diastolic blood tzifkxpy39 mm[Hg]DO Jeff Jon Work Phone: [facility]09-24-2024 11:53-0400 Heart rate83 /Emilie Jon Work Phone: [facility]09-24-2024 11:53-0400 SaO2% (BldA) [Mass fraction]97 %DO Jeff Jon Work Phone: 1(017)[address]09-24-2024 11:53-0400 Systolic blood jpfmjifc785 mm[Hg]DO Jeff Jon Work Phone: 1(462)[address]08-26-2024 15:56-0400 Diastolic blood mm[Hg]DO Jeff Shanecassi Work Phone: 1(673)[address]08-26-2024 15:56-0400 Heart rate82 /minDO Jeff Shanecassi Work Phone: 1(583)[address]08-26-2024 15:56-0400 SaO2% (BldA) [Mass fraction]97 %DO Jeff Jon Work Phone: 1(677)[address]08-26-2024 15:56-0400 Systolic blood zosigiec439 mm[Hg]DO Jeff Shanecassi Work Phone: 1(600)[address]07-31-2024 14:19-0400 Diastolic blood qcvxvyyt25 mm[Hg]DO Jeff Jon Work Phone: 1(593)[address]07-31-2024 14:19-0400 Heart uzjw523 /minDO Jeff Jon Work Phone: 1(976)[address]07-31-2024 14:19-0400 SaO2% (BldA) [Mass fraction]96 %DO Jeff Jon Work Phone: 1(774)[address]07-31-2024 14:19-0400 Systolic blood xsdbmiuk014 mm[Hg]DO Jeff Jon Work Phone: 1(712)[address]07-17-2024 13:53-0400 Body .05 kg[facility]07-17-2024 13:53-0400 Diastolic blood esxshagi71 mm[Hg][facility]07-17-2024 13:53-0400Heart rate91 /minSelect [facility]07-17-2024 13:53-1983VkW9% (BldA) [Mass fraction]97 %[facility] 12-05-2023 13:53-0400Systolic blood ebtbysuk590 mm[Hg][facility]06-10-2024 14:41-0400Body zxomyi483.1 cm[facility] 10-29-2023 14:41-0400Body mass index (BMI) [Ratio]45.7 kg/i8ZwdxhykjdSelect [facility]06-10-2024 14:41-0400Body eydjxp168.73 kg[facility]06-10-2024 14:41-0400Diastolic blood xsbgyqqt74 mm[Hg][facility]06-10-2024 14:41-0400Heart rate87 /[facility]06-10-2024 14:41-0400Respiratory rate18 /[facility]06-10-2024 14:41-9459ChA3% (BldA) [Mass fraction]97 %[facility]06-10-2024 14:41-0400Systolic blood dxqisuge879 mm[Hg] [facility]05-08-2024 14:12-0400Body .1 cm [facility]05-08-2024 14:12-0400Body mass index (BMI) [Ratio]46 kg/s4WownvuzwgSelect Medical [facility]05-08-2024 14:12-0400Body rcxzmdqefbw03.1 [degF][facility]05-08-2024 14:12-0400Body .64 kg[facility]05-08-2024 14:12-0400Diastolic blood ipvobpuo52 mm[Hg][facility]05-08-2024 14:12-0400 SaO2% (BldA) [Mass fraction]95 %[facility]05-08-2024 14:12-0400Systolic blood wqssydzf952 mm[Hg][facility] 08-28-2023 11:23-0400Diastolic blood kyayrqsb42 mm[Hg][facility]04-09-2024 11:23-0400Heart rate89 /[facility] 08-28-2023 11:23-1760NwE1% (BldA) [Mass fraction]98 %[facility]04-09-2024 11:23-0400Systolic blood mm[Hg][facility]04-09-2024 10:49-0400Body .1 cm[facility]04-09-2024 10:49-0400Body mass index (BMI) [Ratio]45.7 kg/w5ExsskjbvwSelect Medical [facility]04-09-2024 10:49-0400Body jucdbi937.73 kg[facility]12-21-2023 14:10-0500Diastolic blood hfbhczot72 mm[Hg] Casper Nguyen [facility]12-21-2023 14:10-0500Heart rate81 /minBrajeffry Patrick [facility]12-21-2023 14:10-0500Mean blood zdvxpkoc839 mm[Hg]Casper Nguyen [facility]12-21-2023 14:10-0500 Respiratory rate14 /minBrajeffry Patrick [facility]12-21-2023 14:10-0500 Systolic blood fmxksowr532 mm[Hg]Casper Nguyen [facility]10-30-2023 14:00-0400Body wdhgil570.1 cmChristdanna Terrazas Other [employer] Other 10-30-2023 14:00-0400Body mass index (BMI) [Ratio] 45.09 kg/u9Pzwpuwjgcjx Mk Other [employer] Other 10-30-2023 14:00-0400Body eflyaehwgst43.8 [degF] Christopher Mk Other [employer] Other 10-30-2023 14:00-0400Body .93 kgChristop Mk Other [employer] Other 10-30-2023 14:00-0400Respiratory rate20 /min Zenondanna Phillipsdano Other [employer] Other 10-30-2023 14:00-3371PdQ8% (BldA) [Mass fraction]98 % Zenondanna Phillipsdano Other [employer] Other 10-05-2023 08:10-0400Body hvzdzi959.1 cmDakorin Jon Other [employer] Other 10-05-2023 08:10-0400Body mass index (BMI) [Ratio] 45.26 kg/n4JnpvjJeff Jon Other [employer] Other 10-05-2023 08:10-0400Body nigieqbhakg62.8 [degF]Jeff Jon Other [employer] Other 10-05-2023 08:10-0400Body xadbmm647.38 kgDakorin Jon Other [employer] Other 10-05-2023 08:10-0400Diastolic blood ihtcaldg433 mm[Hg]Jeff Jon Other [employer] Other 10-05-2023 08:10-0400Respiratory rate18 /minDavisergio Jon Other [employer] Other 10-05-2023 08:10-7724OhY2% (BldA) [Mass fraction]99 % Jeff Jon Other [phone] [employer] Other 10-05-2023 08:10-0400Systolic blood tlatawqh769 mm[Hg] Jeff Jon Other [employer] Other 06-06-2023 16:50-0400Body .1 cmAmbkirby Manuel Other [employer] Other 06-06-2023 16:50-0400Body mass index (BMI) [Ratio] 45.09 kg/f2MzikeLacie Manuel Other [employer] Other 06-06-2023 16:50-0400Body ueddobtwsch79 [degF]Lacie Manuel Other [employer] Other 06-06-2023 16:50-0400Body dadovl369.93 kgLacie Manuel Other [employer] Other 06-06-2023 16:50-0400Diastolic blood pgjxjczu96 mm[Hg] Lacie Manuel Other [employer] Other 06-06-2023 16:50-0400Respiratory rate18 /minLacie Manuel Other [employer] Other 06-06-2023 16:50-8265HqI0% (BldA) [Mass fraction]95 % Lacie Manuel Other [employer] Other 06-06-2023 16:50-0400Systolic blood vbygcwdj636 mm[Hg] Lacie Manuel Other [employer] Other 05-30-2023 08:45-0400Body wcikmr471.1 cmChristopher Mk Other [employer] Other 05-30-2023 08:45-0400Body mass index (BMI) [Ratio] 44.76 kg/b4Dlhixyvvjbg Mk Other [employer] Other 05-30-2023 08:45-0400Body zwbyhrihyof46.8 [degF] Christopher Mk Other [employer] Other 05-30-2023 08:45-0400Body jhadyu487.02 kgChristopher Mk Other [employer] Other 05-30-2023 08:45-0400Diastolic blood rfkbzwuo97 mm[Hg] Christopher Mk Other [employer] Other 05-30-2023 08:45-0400Respiratory rate20 /min Christopher Mk Other [employer] Other 05-30-2023 08:45-4435RiJ0% (BldA) [Mass fraction]98 % Christopher Mk Other [employer] Other 05-30-2023 08:45-0400Systolic blood zytatmol578 mm[Hg] Christopher Mk Other [employer] Other 04-26-2023 10:15-0400Body rkzjuh179.1 cmChristopher Mk Other [employer] Other 04-26-2023 10:15-0400Body mass index (BMI) [Ratio] 43.43 kg/p6Fusxayzeyeu Mk Other [employer] Other 04-26-2023 10:15-0400Body .8 [degF] Ryleyer Mk Other [employer] Other 04-26-2023 10:15-0400Body irxjqo158.39 kgChristopher Mk Other [employer] Other 04-26-2023 10:15-0400Diastolic blood xfqkurta902 mm[Hg]Ryleyer Mk Other [employer] Other 04-26-2023 10:15-0400Respiratory rate20 /min Carlos Phillipsdano Other [employer] Other 04-26-2023 10:15-1100FqB0% (BldA) [Mass fraction]100 % Carlos Phillipsdano Other [employer] Other 04-26-2023 10:15-0400Systolic blood dufsfzbq675 mm[Hg] Carlos Phillipsdano Other [employer] Other 03-24-2023 13:35-0400Body plqfdi007.1 Ashley Manuel Other [employer] Other 03-24-2023 13:35-0400Body mass index (BMI) [Ratio] 26.62 kg/f2XrivvLacie Manuel Other [employer] Other 03-24-2023 13:35-0400Body qhfuvalxtze73.8 [degF]Lacie Manuel Other [employer] Other 03-24-2023 13:35-0400Body .58 kgAmbkirby Manuel Other [employer] Other 03-24-2023 13:35-0400Respiratory rate18 /minLacie Manuel Other [employer] Other 03-24-2023 13:35-6810CzB8% (BldA) [Mass fraction]98 % Lacie Manuel Other [employer] Other 02-22-2023 13:20-0500Body ejikbx039.1 cmDakorin Jon Other [employer] Other 02-22-2023 13:20-0500Body mass index (BMI) [Ratio] 43.26 kg/i8Ylxllkorin Jon Other [employer] Other 02-22-2023 13:20-0500Body seohhzhdqcc84.1 [degF]Jeff Jon Other [employer] Other 02-22-2023 13:20-0500Body xevnsa811.94 kgDakorin Jon Other [employer] Other 02-22-2023 13:20-0500Diastolic blood fddilclo01 mm[Hg] Jeff Jon Other [employer] Other 02-22-2023 13:20-0500Respiratory rate18 /minDavisergio Jon Other [employer] Other 02-22-2023 13:20-1791RwD5% (BldA) [Mass fraction]99 % Jeff Jon Other [employer] Other [id number] 13:20-0500Systolic blood fjhhkesj646 mm[Hg] Jeff Jon Other [employer] Other 11-22-2022 13:40-0500Body ssyymt501.1 cmDakorin Jon Other [employer] Other 11-22-2022 13:40-0500Body mass index (BMI) [Ratio] 43.26 kg/h8NgpecJeff Jon Other [employer] Other 11-22-2022 13:40-0500Body uizveojdhoj80.5 [degF]Jeff Jon Other [employer] Other 11-22-2022 13:40-0500Body rwqiye096.94 kgDakorin Jon Other [employer] Other 11-22-2022 13:40-0500Diastolic blood coccjkhc128 mm[Hg]Jeff Jon Other [employer] Other 11-22-2022 13:40-0500Respiratory rate18 /minDavisergio Jon Other [employer] Other 11-22-2022 13:40-1840PoQ5% (BldA) [Mass fraction]98 % Jeff Jon Other [employer] Other 11-22-2022 13:40-0500Systolic blood noqrrweg668 mm[Hg] Jeff Jon Other [employer] Other 07-19-2022 12:00-0400Body .1 cmHeidi Jacky Other [employer] Other 07-19-2022 12:00-0400Body mass index (BMI) [Ratio] 45.09 kg/u2Qdpmp Jacky Other [employer] Other 07-19-2022 12:00-0400Body kdqxektxzod62.9 [degF]Lorena Jacky Other [employer] Other 07-19-2022 12:00-0400Body .93 kgHeidi Jacky Other [employer] Other 07-19-2022 12:00-0400Diastolic blood ewczaldu56 mm[Hg] Lorena Jacky Other [employer] Other 07-19-2022 12:00-0400Respiratory rate20 /minHeidi Jacky Other [employer] Other 07-19-2022 12:00-3150EwW7% (BldA) [Mass fraction]99 % Lorena Jacky Other [employer] Other 07-19-2022 12:00-0400Systolic blood mcwplvoe638 mm[Hg] Lorena Jacky Other [employer] Other 06-02-2022 11:30-0400Body mklamf364.1 cmDavid Dontrell Other [employer] Other 06-02-2022 11:30-0400Body mass index (BMI) [Ratio] 46.09 kg/q9QrtfrJeff Jon Other [employer] Other 422046-41-8899 11:30-0400Body igfcfagrzic92.8 [degF]Jeff Jon Other [employer] Other 06-02-2022 11:30-0400Body yjdmay657.65 kgDakorin Jon Other [facility] [employer] Other 06-02-2022 11:30-0400Diastolic blood dhzukdhj71 mm[Hg] Jeff Jon Other [employer] Other 295209-63-1609 11:30-0400Respiratory rate18 /minDbalbina Jon Other [employer] Other 592583-18-9151 11:30-7456HfX9% (BldA) [Mass fraction]96 % Jeff [facility] Other 06-02-2022 11:30-0400Systolic blood hcpmidai878 mm[Hg] Jeff Jon Other [employer] Other 630235-70-4899 13:46-0400Body .83 kgLeena Seymour MD Work Phone: [facility]05-20-2022 13:46-0400Diastolic blood slneqcvw11 mm[Hg]Leena Seymour MD Work Phone: [facility]05-20-2022 13:46-0400Heart rate94 /min Leena Seymour MD Work Phone: [facility]05-20-2022 13:46-0400Systolic blood hremdjur149 mm[Hg]Leena Seymour MD Work Phone: [facility]10-26-2021 13:40-0400Body dyuexg264.1 cmDakorin Jon Other [employer] Other 10-26-2021 13:40-0400Body mass index (BMI) [Ratio] 45.51 kg/b5MrhglJeff Jon Other [employer] Other 10-26-2021 13:40-0400Body .7 [degF]Jeff Jon Other [employer] Other 10-26-2021 13:40-0400Body crmuxk719.06 kgDakorin Jon Other [employer] Other 10-26-2021 13:40-0400Diastolic blood gkcsyvcd12 mm[Hg] Jeff Jon Other [employer] Other 10-26-2021 13:40-0400Respiratory rate20 /minDbalbina Jon Other [employer] Other 10-26-2021 13:40-5857NfD6% (BldA) [Mass fraction]98 % Jeff Jon Other [employer] Other 10-26-2021 13:40-0400Systolic blood ulkysthi932 mm[Hg] Jeff Jon Other [employer] Other 10-04-2021 11:00-0400Body zfaylg287.1 cmChristopher Mk Other [employer] Other 10-04-2021 11:00-0400Body mass index (BMI) [Ratio] 44.93 kg/g4Irjjeacdfwy Mk Other [employer] Other 10-04-2021 11:00-0400Body aoyxpsttbcp15.5 [degF] Carlos Phillipsdano Other [employer] Other 10-04-2021 11:00-0400Body bqdtil383.47 kgChristopher Mk Other [employer] Other 10-04-2021 11:00-0400Diastolic blood ufbwgukb81 mm[Hg] Carlos Phillipsdano Other [employer] Other 10-04-2021 11:00-0400Respiratory rate20 /min Carlos Terrazas Other [employer] Other 10-04-2021 11:00-1684CdQ1% (BldA) [Mass fraction]99 % Carlos Terrazas Other [employer] Other 10-04-2021 11:00-0400Systolic blood nxehpkzt053 mm[Hg] Carlos Phillipsdano Other [employer] Other Encounters Encounter DateEncounter TypeCare ProviderFacilityStart: 03-19-2025 End: 29-57-5220watsxllptjIwcjl Girvin DO Work Phone: -[facility] [place]Start: 03-19-2025 End: 16-32-3738Lrufgtl encounter procedureJeff Jon DO-[facility] [place] Work Phone: Start: 03-02-2025 End: 01-76-8804skoqwljpxiMzcdc Girvin DO Work Phone: [facility] Work Phone: Start: 03-02-2025 End: 05-59-6833Cjbmnpj encounter procedureDakorin Lilli Acostacassi DO-[facility] Work Phone: Start: 02-24-2025 End: 33-19-9832slymahtlugQhcxt Gircassi DO Work Phone: [facility] Work Phone: Start: 02-24-2025 End: 71-89-2349Trfnnjb encounter procedureDavisergio Reeder Dontrell [facility] Work Phone: Start: 02-09-2025 End: 32-19-4286wyccjmntabVAIAAS [facility] Start: 65-83-5068Yac-patient / Non-visitGeormalissa Espino MD-[facility] Work Phone: Start: 01-08-2025 End: 25-71-2601vncwhhtrycEKES [facility] Centertart: 37-44-9319Bfq-patient / Non-visitGeormalissa Espino MD-[facility] Work Phone: Start: 01-05-2025 End: 62-48-1965aphzudfqdzDDKYAK [facility] Start: 12-08-2024 End: 60-29-8967hrcwvhlqvxNkhmm Girvin DO Work Phone: [facility] Work Phone: Start: 12-08-2024 End: 38-46-2078Lrzprab encounter procedureLorena Moore APRN [facility] Work Phone: Start: 11-27-2024 End: 36-13-4518yyloafirybHyswt Girvin DO Work Phone: [facility] Work Phone: Start: 11-27-2024 End: 25-69-2974Itcwswk encounter procedureDavid C Gircassi DO-[facility] [place] Work Phone: Start: 11-26-2024 End: 45-45-9657bhjvtqhyruOhmce GirvinFacility:[facility] Start: 72-58-9011Kgz-patient / Non-visitDavid C Dontrell DO-[facility] Work Phone: Start: 27-72-7344Ztx-patient / Non-visitDavid C Gircassi DO-[facility] Work Phone: Start: 10-24-2024 End: 11-66-2646avngnxarjcCssez Girvin DO Work Phone: [facility] Work Phone: Start: 10-24-2024 End: 82-03-0705Anlkazp encounter procedureDavid Girvin DO Work Phone: [facility] [place] Work Phone: Start: 09-08-2024 End: 08-23-5236wufibhbgozXflgj Girvin DO Work Phone: [facility] Work Phone: Start: 09-08-2024 End: 59-45-7071Mabhogp encounter procedureDavid Girvin DO Work Phone: [facility] Pulmonary Work Phone: Start: 81-51-1853Qhr-patient / Non-visitDavid Girvin DO Work Phone: [facility] Work Phone: Start: 09-01-2024 End: 61-30-8331myfukjewrbFpjaw Girvin DO Work Phone: [facility] Work Phone: Start: 09-01-2024 End: 30-62-7555Tpgqmwh encounter procedureDavid Girvin DO Work Phone: [facility] Work Phone: Start: 08-25-2024 End: 35-20-6798okqbjngtqkOKDBHS [facility] Start: 35-59-3232Psf-patient / Non-visitDavid Girvin DO Work Phone: [facility] Work Phone: Start: 89-11-5264Mrd-patient / Non-visitDavid Girvin DO Work Phone: [facility] Work Phone: Start: 08-01-2024 End: 62-06-2023kheewfzchgSurmb Girvin DO Work Phone: [facility] Work Phone: Start: 08-01-2024 End: 49-09-9535Rydvcwux ReferredDavid Girvin DO Work Phone: [facility] Work Phone: Start: 07-30-2024 End: 63-65-2204Kjfubbd encounter procedureDavid Girvin DO Work Phone: [facility] [place] Work Phone: Start: 07-30-2024 End: 88-97-9067lzztjkfvbqYkyst Girvin DO Work Phone: [facility] Work Phone: Start: 07-16-2024 End: 09-90-2760kswwzdimehLoqoyscjz [facility] Work Phone: Start: 07-16-2024 End: 53-11-3168Cykzfwq encounter procedureNorthern [facility] G[facility] Work Phone: Start: 37-25-9483zunnzthpywQjgncukumTrinity Health [facility] Work Phone: Start: 72-42-1999Mra-patient / Non-visitFirwaukees Physician Group-[facility] Work Phone: Start: 06-13-2024 End: 02-14-5514hrlqviopwmAcsvkquzuTrinity Health [facility] Work Phone: Start: 06-13-2024 End: 82-65-2795Amjimvu encounter procedureNorthern [facility] [place] Work Phone: Start: 06-03-2024 End: 74-83-8265govpnbvxojBysjlcedlTrinity Health [facility] Work Phone: Start: 06-03-2024 End: 23-19-3823Xzkvkmo encounter procedureNorthern [facility] Work Phone: Start: 04-11-2024 End: 05-28-1057Jilowrj encounter procedureNorthern [facility] [place] Work Phone: Start: 03-26-2024 End: 36-56-3605llgwzhnsicPwqzcbhnfTrinity Health [facility] Work Phone: Start: 03-26-2024 End: 75-09-8281Cmjwhie encounter procedureNorthern [facility] Work Phone: Start: 81-97-6991Efp-patient / Non-visitNorthern [facility] Hospital [facility] Work Phone: Start: 02-12-2024 End: 79-47-5028oshqczblujQR David Girvin Work Phone: [facility] Work Phone: Start: 02-12-2024 End: 86-31-2788Omgcskj encounter procedureDO Jeff Jon Work Phone: [facility] Pain Management Work Phone: Start: 02-05-2024 End: 70-00-9063lbtimyqmfaQV David Girvin Work Phone: [facility] Work Phone: Start: 02-05-2024 End: 98-27-3286Ahvuecg encounter procedureDO Jeff Jon Work Phone: [facility] Work Phone: Start: 56-18-3245Cgn-patient / Non-visitDO Jeff Jon Work Phone: [facility] Work Phone: Start: 45-54-7882sjtbzwyoatEwhqoShahzad Jon DO [facility] 01-14-2024 End: 99-24-6996cafnjfnaqxBY David Girvin Work Phone: [facility] Work Phone: Start: 01-14-2024 End: 66-42-7902Asnbjrz encounter procedureDO Jeff Jon Work Phone: [facility] Work Phone: Start: 27-86-0386hlzxcxxypbNixzyShahzad Jon DO Facility:[facility]: 67-80-9424Ftg-patient / Non-visitDO Jeff Jon Work Phone: [facility] Work Phone: Start: 12-27-2023 End: 50-24-0402dndioepsazIB Jeff Jon Work Phone: [facility] Work Phone: Start: 12-27-2023 End: 19-43-7514Jauvyug encounter procedureDO Jeff Jon Work Phone: [facility] Work Phone: Start: 12-19-2023 End: 27-43-1337bjgkufvvqmRY Jeff Jon Work Phone: [facility] Work Phone: Start: 12-19-2023 End: 12-21-3252Quckktf encounter procedureDO Jeff Jon Work Phone: [facility] Pain Management Work Phone: Start: 15-55-8373ckmofpwenhWrhdy Clark Girvin DO [facility]: 12-12-2023 End: 96-61-1355lwipzyriztRwcms Clark Girvin DOFacility:[facility]habStart: 12-05-2023 End: 23-59-6969bpkhesnkawALVera Jon Work Phone: [facility] Work Phone: Start: 12-05-2023 End: 95-50-4886Zsllini encounter procedureIvettspotsylvania regional medical center Phys[facility] Pain Management Work Phone: Start: 10-29-2023 End: 17-85-7805ymwnryztgvOsojykjuhBlanchard [facility] Work Phone: Start: 10-29-2023 End: 91-65-5291Lwssrno encounter procedureSpike Physician Group-[facility] [place] Work Phone: Start: 13-85-3922Egw-patient / Non-visitSpike Physician Group-[facility] Work Phone: Start: 10-23-2023 End: 63-46-6029luhmdsbjlvHGMUPK Ulises JIANGNot AvailableStart: 10-09-2023 End: 56-72-4215Umcbuwdsd Result EncounterHijose Jiang MD Work Phone: noms External Department UnsolicitedStart: 10-09-2023 End: 09-65-3494Vwxbjdgre Result EncounterHijose Jiang MD Work Phone: noms External Department UnsolicitedStart: 09-26-2023 End: 79-14-2410zxrmblolanYbtmenpdxBlanchard Valley [facility] Work Phone: Start: 09-26-2023 End: 80-35-6692Uczwajb encounter procedureNorthern Regional Hospital Phys[facility] GroupSouth [facility] Work Phone: Start: 09-24-2023 End: 93-68-4307zwxkpswrdrXJNRDX H TIMMISNot AvailableStart: 09-18-2023 End: 04-45-8616hizhdfjlrrMCUVOTG A SAMANTHANot AvailableStart: 09-05-2023 End: 61-65-2294pydcekrlsrNZJDSC H TIMMISNot AvailableStart: 09-04-2023 End: 38-23-1829Gwbltvnmu Result EncounterHilary Ulises Jiang MD Work Phone: noms External Department UnsolicitedStart: 09-04-2023 End: 35-79-0216Mmweelvug Result EncounterHilary Ulises Jiang MD Work Phone: noms External Department UnsolicitedStart: 08-28-2023 End: 15-04-5429lslklpcunfAaeolpqaoBlanchard Valley Health [facility] Work Phone: Start: 08-28-2023 End: 30-37-6723Fbtgzra encounter procedureNorthern Regional Hospital Physician GroupSouth Shore Hospital Work Phone: Start: 45-50-3403Qgn-patient / Non-visitNorthern Regional Hospital [facility] Work Phone: Start: 08-21-2023 End: 06-69-7649ofyketnloyKZTCMP H TIMMISNot AvailableStart: 06-29-2023 End: 91-10-4055gclhldrqyyBxhng Girvin Other [facility] Other Start: 62-59-6959Cbsathtbt encounterDakorin EpsteinG [facility] Hospitaltart: 05-10-2023 End: 58-66-2493nnhrwbuqqaKBVera NguyenFacility:FTMCStart: 05-10-2023 End: 28-62-2846Azkq Hilton Nguyen [facility] Start: 04-30-2023 End: 85-28-9108ldrpnkxdkeUFWK D HILLSNot AvailableStart: 04-24-2023 End: 50-69-2067csduycgltgBKGS D HILLSNot AvailableStart: 04-18-2023 End: 58-14-2388vsohikspxiMYGP D HILLSNot AvailableStart: 04-04-2023 End: 98-92-5463ojsxjyvdctLbkuz Girvin Other [employer] Other Start: 82-41-1444Vliprmpam encounterDavid DontrellTisha [facility] [place]vueStart: 03-19-2023 End: 18-73-4619qyjkwkezzfBuqguyymatl Mk Other [facility] [employer] Other Start: 66-52-2020Xdfiwa outpatient visit 15 minutes Carlos Valle Pulmonary DiseaseStart: 02-22-2023 End: 06-42-6617jvkylxzkfiInfor Dontrell Other [employer] Other Start: 33-70-3112Edwwkp outpatient visit 25 minutes Jeff Aragon [facility] [place]Start: 11-24-2022 End: 71-30-3219ptzpemcmnoFzgal Dontrell Other [employer] Other Start: 96-81-8388Ydidcnwqm encounterDavid DontrellTisha [facility] [place]vueStart: 10-24-2022 End: 07-06-4581dokxxhynwfUmkst Keller Other [employer] Other Start: 25-03-2625Lrfmmx outpatient visit 15 minutes [facility] ClydeStart: 10-17-2022 End: 13-07-3649nzofacidzcNrayqzdfucm Mk Other [facility] [employer] Other Start: 71-00-7922Eajupj outpatient visit 15 minutes Christopher ViviannoFPG Pulmonary DiseaseStart: 98-26-6506jiypavvbwbCrGris Garcestoshia TraboulssiFacility:687[address]Hdnly: 63-78-0717Clcbbuo encounter procedureDavisergio Jon Work Phone: [phone]-Zbknl [facility] [address] DO Work Phone: Start: 55-81-9074raitzgbtpqSo. David Clark Girvin Facility:[id number]: 18-65-6524Yqrncuspo for other preprocedural examination [facility] HospitalStart: 61-60-6919Otnijcgfg for preprocedural cardiovascular examinationHIHIRY [facility] Hospitaltart: 09-14-2022 Encounter for preprocedural laboratory examinationHIHIRY [facility] Hospitaltart: 57-03-8202Xwnhtuvxe for preprocedural respiratory examination [facility]: 09-13-2022 End: 45-62-1348mkovkxxxytKatnywpjxat Mk Other [facility] [employer] Other Start: 05-27-1801Qvtxrn outpatient visit 25 minutes Christopher Leonard Pulmonary DiseaseStart: 91-32-9992xryczxswtkQI DAVID GIRVINFacility:T4Yhzgo: 09-08-2022 End: 79-40-0775Qfrxmvviv for preprocedural laboratory examinationDR JEFF JON Facility:S6Mtkqh: 09-08-2022 End: 80-57-9242acsnwmwftiTH JEFF [facility]haw[facility] [employer] Other Start: 34-72-0686Vkaosdiqr encounterDavid GircassiFP[facility] [place]vueStart: 09-01-2022 End: 32-44-8520ibipgafxiuNjtgc Dontrell Other [employer] Other Start: 10-41-6544Ryxrsmccw encounterDavid GircassiFP[facility] [place]vueStart: 08-21-2022 End: 33-08-0860iupqqjarimLPKMPWD M MANONFacility:E7Nvsfq: 08-18-2022 End: 49-58-7555mfxukpclvhWrGris Coleman [employer] Other Start: 00-87-5581Xgmmitdsx encounterDavid GircassiFP[facility] [place]Start: 08-17-2022 End: 88-81-9672mtzkjfkrruSQZDDZ DIAB .Facility:O1Ywipv: 08-14-2022 End: 83-83-9438kacwaispvwSnvvc Dontrell Other [employer] Other Start: 12-25-9756Mrbyghgxt encounterDavid GircassiG [facility] Medicine [place]Start: 08-11-2022 End: 60-15-0052jhxqfhaayxHypje Dontrell Other [employer] Other Start: 26-62-4680Uionre outpatient visit 15 minutes Lacie KalebYUMA [facility] ClydeStart: 21-73-6885Rwgwaknna encounterDavid GircassiFP[facility] [place]Start: 08-07-2022 End: 35-02-0445oqldkbstrvZwgsp Gircassi Other [employer] Other Start: 51-64-8347Rwxsysgmw encounterDavid GirvinFP[facility] [place]Start: 07-12-2022 End: 92-55-0684tihikjdoniVezfq Dontrell Other [employer] Other Start: 06-05-7592Uqhszi outpatient visit 25 minutes Jeff Aragon [facility] [place]vueStart: 40-00-2844Pczveicri encounter Jeff EpsteinTisha [facility] Medicine [place]Start: 07-10-2022 End: 96-85-1336draprtculdKV DAVID GIRVINFacility:B2Haagh: 06-14-2022 End: 27-74-4797olbanebxpfCtgxy Dontrell Other [employer] Other Start: 75-11-4500Tygxlimnf encounterDakorin Aragon [facility] [place]Start: 06-07-2022 End: 99-04-7601jezqhfiszySbcrf Dontrell Other [employer] Other Start: 75-31-7617Sagolfyso encounterDakorin JonANNELTisha [facility] [place]vueStart: 04-11-2022 End: 18-00-1395vdpurpdjxyFahaw Dontrell Other [employer] Other Start: 19-36-9622Hmezmj outpatient visit 25 minutes Jeff Aragon [facility] [place]Start: 04-05-2022 End: 09-67-2886fjvrbncsirVKMohsen Slaterity:N8Wjaqj: 04-04-2022 End: 79-52-7550asjbeozkwqOopdq Dontrell Other [employer] Other Start: 42-16-4911Pbxjzhvnx encounterDakorin JonANNELTisha [facility] [place]Start: 04-03-2022 End: 24-76-2137omweaezrboIpcat Dontrell Other [employer] Other Start: 93-63-3662Knojhyjcd encounterDakorin JonANNELTisha [facility] [place]vueStart: 03-21-2022 End: 19-53-5923myqywomqkvTupct Dontrell Other [facility] [employer] Other Start: 41-54-5767Hztsudfpk encounterDavid Margo [facility]Start: 12-09-2021 End: 93-98-1656erhizsbydaAsmkl Girvin Other [facility] [employer] Other Start: 87-20-2428Hbnfqpjtu encounterDavid LucianG Family [facility] [place]Start: 12-06-2021 End: 98-57-1104alisavbrghEtrrl Jacky Other [facility] [employer] Other Start: 72-25-3298Edrbpa outpatient visit 25 minutes Lorena GastFPG Pulmonary DiseaseStart: 48-73-2207Cfmuzfcty encounterHeidi GastFPG Pulmonary DiseaseStart: 11-29-2021 End: 74-69-6448akdmprwzmtQP JEFF Laicility:O1Kuegp: 10-20-2021 End: 93-67-3567brzivgdbjaOntxl Girvin Other [facility] [employer] Other Start: 17-72-5636Kcfuex outpatient visit 25 minutes Jeff Aragon [facility] [place]Start: 10-13-2021 End: 84-11-3055quwrsykklnVCWDB CLARK GIRVINFacility:[facility] Start: 10-13-2021 End: 54-16-6364qeifqwgrlyYyyez Chhay APRN.SPECIAL EVENTS DRIVER Work Phone: EndocrinologyComment on above:Type 2 diabetes mellitus with hyperglycemia, without long-term current use of insulin (HCC) (Primary Dx); Heraclio's diseaseStart: 10-13-2021 End: 60-89-9641Hhpdmqimjcls consultation with Agustin Jimenez APRN.SPECIAL EVENTS DRIVER Work Phone: CC CHRIS FHtart: 69-29-5157Xitddlchw encounterPuttimoteo Jimenez APRN.CNP Work Phone: EndocrinologyComment on above:AppointmentStart: 10-07-2021 End: 70-55-1023pcvomitcgpYUCYP CLARK GIRVINFacility:[facility] Start: 10-07-2021 End: 06-43-7108Chrruxl encounter Shan Seymour MD Work Phone: RheumatologyComment on above:Fibromyalgia (Primary Dx); ALDEN (generalized anxiety disorder)Start: 86-98-1558Qsrawugkk encounterAsad Ansari MD Work Phone: EndocrinologyComment on above:Lab OrdersStart: 15-67-3488cwpksvpgjmZAMohsen Laicility:D1Dwteb: 70-65-6892Qeaydhuyv encounterDavisergio Aragon [facility] BellueStart: 09-28-2021 End: 60-45-0609qjjfekyzenPYPaige Priesthawth[facility] [employer] Other Start: 09-20-2021 End: 69-55-4779scmluvavvjPvqkiblhnmv Mk Other [employer] Other Start: 98-63-9957Zbgkscknn encounterChristopher AvendanoFPG Pulmonary DiseaseStart: 08-22-2021 End: 12-40-4880cbvzuxmljqZvczgmacaft Mk Other [employer] Other Start: 64-19-5924Ctsogeinv encounterDavisergio Aragon Family [facility] BellueStart: 07-22-2021 End: 06-87-5822vuxiadbcakVRSWF SKUGORFacility:[facility] Hospitaltart: 07-14-2021 End: 18-59-4224qczefujprbMojnx Girvin Other [employer] Other Start: 78-98-6181Yuleniymp encounterDavid Margo [facility] [place]Start: 07-04-2021 End: 97-35-2920gxxuaemivvQewlb Girvin Other [employer] Other Start: 08-61-4975Xjaepcsmp encounterDavid Margo [facility] [place]Start: 06-28-2021 End: 12-73-8650kwpkyvtiwyEmxcz Girvin Other [facility] [employer] Other Start: 25-22-9083Uoucqujjj encounterDavid DontrellFP[facility] [place]vueStart: 18-25-8975Wikpxsqxq encounterAsad Ansari MD Work Phone: EndocrinologyComment on above:Patient QuestionStart: 06-16-2021 End: 54-31-4810jycraykrcsGOACZ CLARK GIRVINFacility:[facility] Start: 06-16-2021 End: 29-96-0276oygjgdduksPGLXK SKUGORFacility:[facility] Hospitaltart: 05-25-2021 End: 24-52-7793lveihqdkcrKwijo Girvin Other [facility] [employer] Other Start: 45-31-4625Lleretmhj encounterDavid DontrellFP[facility] [place]Start: 05-11-2021 End: 73-12-6210reauvkaggvDxpip Girvin Other [facility] [employer] Other Start: 09-16-3241Ttljacyrw encounterDavid DontrellFP[facility] [place]Start: 04-27-2021 End: 36-60-1076zaomifsjhuQwcce Girvin Other [employer] Other Start: 53-78-8053Xnjnblyda encounterDavid DontrellFP[facility] [place]Start: 04-19-2021 End: 94-03-2306iyzhrfjokoPkzsem Cundiff Other Nort [employer] Other Start: 24-17-1161Orqzczysj encounterCarl Valdivia [facility] ClinicStart: 73-07-1013Aoeizhcpi encounterDakarlos Julian [facility] ClinicStart: 98-76-0331Martji outpatient visit 15 minutesDavisergio Aragon [facility] [place]vueStart: 85-76-5461Txrqmdcel encounterDavisergio Aragon [facility] BellueStart: 34-74-5620Jvpxia outpatient visit 15 minutesChristopher AvendanoFPG Pulmonary DiseaseStart: 09-26-2018 End: 39-16-8090Ftrfztl encounter procedureDAKORIN Reeder [facility] Procedures DateProcedureProcedure DetailPerforming ClinicianStart: 29-99-0289Jgtmehah tomography of abdomen and pelvis with contrastDakorin Jon DO Work Phone: Start: 33-19-6052Y-ray of lumbar spine, four viewsDO Jeff Jon Work Phone: Start: 60-20-6334Xpvej x-ray of pelvis and lower extremityDO Jeff Jon Work Phone: Start: 28-65-2075XSN HEAD/BRAIN WO/W CONTRJennie Jiang MD Work Phone: Start: 97-26-6497As orbit sella/post fossa/ear w/contrast matrlHijose Jiang MD Work Phone: Start: 86-00-5690Wchdp depression screening assessment Leena Seymour MD Work Phone: Start: 88-95-9422Uxr brain brain stem w/o w/contrast materialDAVID DONTRELLAbdominal hysterectomyCasper Nguyen cholecystectomyCasper Nguyen laparoscopyCasper Nguyen Myringotomy and insertion of T tubeCasper Nguyen comment on above:q1SfjxelekdjyrwXdgkqpcd Jones Plan of Treatment DateCare ActivityDetailAuthorStart: 44-94-4949Qvbbv [facility]tart: 54-06-6274SexrygqtnxyljccyoigankimmvQR EGD/Colonoscopy (Not Applicable)[facility]tart: 85-67-6927Qvesxkx referral [facility] Work Phone: Start: 71-74-6464GOEFMOTI SCREENDIABETES SCREEN [facility] Daytontart: 90-20-5960Njxuuqu [facility] Work Phone: Start: 35-36-9942Qdaxcbb [facility] Work Phone: Start: 86-67-8443Ngudf depression screening assessment DEPRESSION SCREENINGKettering Health Daytontart: 52-81-7259Udgcvrbmej A1c/Hemoglobin.total in TwzcxDSD2MYtivgkifc ClinicStart: 66-54-3023Ewqvylcqh vaccinationINFLUENZA (#1)[facility]: 11-25-2021 End: 11-25-8757P3 FREE BLDT3 FREE BLD Lab Routine Heraclio's disease Expected: 11/25/2021, Expires: 01/25/2022[facility] Work Phone: Comment on above:Expected: 11/25/2021, Expires: 01/25/2022tart: 11-25-2021 End: 28-69-6794L8 FREE/FREE THYROXT4 FREE/FREE THYROX Lab Routine Heraclio's disease Expected: 11/25/2021, Expires: 01/25/2022[facility] Work Phone: Comment on above:Expected: 11/25/2021, Expires: 01/25/2022tart: 11-25-2021 End: 47-60-9544Ojpevaqxkqa [Units/volume] in Serum or PlasmaTSH BLD Lab Routine Heraclio's disease Expected: 11/25/2021, Expires: 01/25/2022[facility] Work Phone: Comment on above:Expected: 11/25/2021, Expires: 01/25/2022tart: 10-07-2021 End: 50-77-3761TJNPRQA ELECTROPHORESIS SERUM W/[facility] Work Phone: Comment on above:Expected: 10/07/2021, Expires: 12/07/2021tart: 10-05-2021 End: 44-03-0159Frjgjpuapfjqz metabolic 2000 panel - Serum or PlasmaCOMP METABOLIC PANEL Lab Routine Controlled type 2 diabetes mellitus without complication, without long-term current use of insulin (HCC) Expected: 10/05/2021, Expires: 12/05/2021[facility] Work Phone: Comment on above:Expected: 10/05/2021, Expires: 12/05/2021tart: 10-05-2021 End: 49-68-3627Feswhsqzkc A1c/Hemoglobin.total in BloodHGB A1C Lab Routine Controlled type 2 diabetes mellitus without complication, without long-term curr ent use of insulin (HCC) Expected: 10/05/2021, Expires: 12/05/2021[facility] Work Phone: Comment on above:Expected: 10/05/2021, Expires: 12/05/2021tart: 10-05-2021 End: 86-00-2989K5 FREE BLDT3 FREE BLD Lab Routine Acquired hypothyroidism Expected: 10/05/2021, Expires: [address] [place] [address] Work Phone: Comemtk on above:Expected: 10/05/2021, Expires: 12/05/2021tart: 10-05-2021 End: 23-09-1603H6 FREE/FREE THYROXT4 FREE/FREE THYROX Lab Routine Acquired hypothyroidism Expected: 10/05/2021, Expires: [address] [place] [address] Work Phone: Comment on above:Expected: 10/05/2021, Expires: 12/05/2021tart: 10-05-2021 End: 32-59-6605Dffltqmqmfp [Units/volume] in Serum or PlasmaTSH BLD Lab Routine Acquired hypothyroidism Expected: 10/05/2021, [facility]: [facility] Work [facility]: Comment on above:Expected: 10/05/2021, Expires: 12/05/2021tart: 98-49-2731RVQRIUGYAW ASSESSMENTDEPRESSION ASSESSMENTKettering Health Daytontart: 91-07-2430LUPFA-19 VACCINE (3 - Booster for Pfizer series)COVID-19 VACCINE (3 - Booster for Pfizer series)[facility]: 07-87-1503FDORK-19 VACCINE (3 - Booster for Pfizer series)COVID-19 VACCINE (3 - Booster for Pfizer series)[facility]: 68-57-3040NXKFCELJ VACCINE (1 of 2)SHINGRIX VACCINE (1 of 2)[facility]: 71-23-0400KQUCLEUNH (FIT-DNA)COLOGUARD (FIT-DNA)[facility]: 95-44-9584XlunviayseeOFQENRFRMIQPvifpokvo Clinic Start: 82-81-4147RXREJNETRO CANCER SCREENINGCOLORECTAL CANCER SCREENINGCleBrown Memorial Hospitaltart: 41-92-0928IM COLONOGRAPHYCT COLONOGRAPHYKettering Health Daytontart: 93-67-4058LQIIK OCCULT BLOODFECAL OCCULT BLOODKettering Health Daytontart: 09-10-2012 LIPID SCREENLIPID SCREENCleBrown Memorial Hospitaltart: 34-59-3932ZAELZFOUZPIWX SIGMOIDOSCOPYCleBrown Memorial Hospitaltart: 48-11-7728JmypzkoqjvnGVAQNXBDMFkluggths ClinicStart: 51-23-8188GBK TESTINGHPV TESTINGCleBrown Memorial Hospitaltart: 09-10-1988 PAP TESTINGPAP TESTINGCleBrown Memorial Hospitaltart: 91-73-6671NMEEZTYXH B (1 of 3 - Risk 3-dose series)HEPATITIS B (1 of 3 - Risk 3-dose series)[facility] Start: 49-33-4406Medpk microalbumin profileDTAP,TDAP,TD (1 - Tdap)[facility]: 16-48-9854SQAYPH PCP TEAM CHRONIC DISEASE VISITANNUAL PCP TEAM CHRONIC DISEASE VISITKettering Health Daytontart: 29-01-6623Nfcdeftzo B surface antibody levelLDL CHOLESTEROLKettering Health Daytontart: 89-36-5093PAC SCREENINGHIV SCREENINGKettering Health Daytontart: 33-50-3597Jmsif depression screening assessment DEPRESSION SCREENINGCleveland Clinic Lutheran Hospitalrt: comp foot exam completed DIABETIC FOOT EXAMKettering Health Daytontart: 38-72-3726Cwnonwxgm B screeningURINE ALBUMIN:CREATININE RATIOKettering Health Daytontart: 92-46-0965Pwkybalnp C antibody, confirmatory testDILATED RETINAL EXAMKettering Health Daytontart: 09-10-1973 PNEUMOCOCCAL (1 - PCV)PNEUMOCOCCAL (1 - PCV)[facility]: 1965 HEPATITIS B (1 of 3 - 3-dose series)HEPATITIS B (1 of 3 - 3-dose series) [facility] HospitalAntibody to Scl-70 measurementSelect Medical [facility] Comprehensive metabolic 1999 panel - Serum or [facility] HospitalComprehensive metabolic 2000 panel - Serum or [facility] HospitalComprehensive metabolic 2000 panel - Serum or [facility] HospitalComprehensive metabolic 1999 panel - Serum or Plasma [facility] HospitalCT Abdomen and Pelvis WO contrastSelect Medical Ohiohealth Rehabilitation HospitalInsulin [Units/volume] in Serum or [facility] HospitalInsulin [Units/volume] in Serum or [facility] HospitalPatient referralOur Lady Of Mercy Hospital Work Phone: Rheumatoid factor [Units/volume] in Serum or Plasma [facility] HospitalUrine cultureSelect Medical [facility] Hospital XR Hip - left 2 [facility] Hip - right 2 Views [facility] HospitalXR Lumbar spine 4 [facility]XR Shoulder - left [facility] Immunizations Immunization DateImmunizationNotesCare PaorczxdOrlvsnuu39-39-9024rnjbyqy toxoid, reduced diphtheria toxoid, and acellular pertussis vaccine, adsorbedDavid Girvin DO Work Phone: [facility]10-26-2021influenza, seasonal, injectablePatient ObjectionDakarlos Jordan Other [employer]Drive [employer] Other [id number]-20 Vaccine Pfizer - Documentation Purposes OnlyChristopher Mk Other [facility]04-15-2021COVID-19 Vaccine Pfizer - Documentation Purposes OnlyChristopher Mk Other [facility]04-22-2019Rocephin 500 mgChristopher Mk Other [employer] Other 03-268412-10-7014Hypnboc per 15 mgChristopher Mk Other AFAR [employer] Other 09-22-2015TB TestChristopher Mk Other [employer] Other 07-433845-88-4104ljvfumx toxoid, reduced diphtheria toxoid, and acellular pertussis vaccine, adsorbedChristopher Mk Other [facility] HospitalNEGATED: Highlighted row has not occurred!72-98-5838bgzamdfcq, seasonal, injectablePatient Objection Jeff Jon Other [facility] Payers DatePayer CategoryPayerPolicy [id number] Care HMO (unspecified) [employer] [id number] Health InsuranceAETNA KYRA CHOICE POS II [id number] 2020-Present [phone] [address] [place] [address] [id number] [id number]110-14-0092Ixlrmbg Health Insurance 1.2.840.030776.1.13.159.2.7.3.469340.[id number] [id number] 2..1.801541.3.579.[id number] 2..1.149160.3.579.2.99763-60-9085Sylfppz3166684 2..1.422604.3.579.2.68757-46-4539Mflblup0166955 2.0.1.511952.3.579.2.42571-30-8425Yhpfxwf3178289 2.0.1.623284.3.579.2.64060-56-8727Odembch5142962 2..1.376575.3.579.2.95920-93-1803Tukygct1977357 2.0.1.394537.3.579.2.48406-45-7421Mzbgmui7933001 2.0.1.793597.3.579.2.35148-13-1361Fkezroi2069065 2.0.1.665261.3.579.2.95843-06-8063Cvjgzgr7210968 2.840.1.778317.3.579.2.42040-61-5234Ctvcort278206516 2.840.1.616269.3.579.2.17627-43-8302Cjxccpb692257096 2.0.1.043591.3.579.2.02349-24-8557Najjlmo688938596 2..1.442789.3.579.2.20496-07-1776Zdiethh70522524 2.0.1.239994.3.579.2.87609-96-9559Rnbanpp8257467 2..1.457016.3.579.2.902311-09-0498Juxgrdw6946589 2..1.080958.3.579.2.150657-04-8079Qkgfqto0936482 2..1.766171.3.579.2.583228-44-6807Zbthhlf9971428 2..1.966445.3.579.2.692832-32-1396Czyviuw5643312 2..1.232733.3.579.2.254922-83-5226Cjxjdst689393 2..1.138285.3.579.2.176462-34-3053Pswthze435944 2..1.093130.3.579.2.620365-78-5115Ilrdozu776324 2.0.1.632492.3.579.2.112599-35-6423Hwplzpt865392 2.0.1.484007.3.579.2.595064-15-9922Hpaulng054498883 2.16.840.1.283922.3.579.2.04104-59-2316Aopbgrr636740439 2.16.840.1.444041.3.579.2.42174-44-8816Bonmyst138880525 2..840.1.858752.3.579.2.07140-88-2670Gznuvzm762570210 2.16.840.1.317797.3.579.2.40181-35-6399Ekrbmdl Health [id number] 2.16840.1.758749.19UnknownAETNAPrivate Health [id number] [id number] 2.840.1.854694.3.579.2.831Squuaix25579489 2.0.1.479013.3.579.2.903Wdkfdcc02733084 2.840.1.108072.3.579.2.531 Qezkgdb44961494 2.0.1.438641.3.579.2.531 Social History DateTypeDetailFacilityStart: 09-20-2015 End: 04-10-8730Nvwrakp smoking status NHISNever smoked tobaccoAvita Health System Bucyrus Hospital Start: 09-20-2015 End: 04-17-6904Lwasynd use and exposureSmokeless tobacco non-userKettering Health Daytontart: 06-16-2021 End: 87-58-0557Lpijhsw intakeNot AskedKettering Health Daytontart: 21-59-1427Wcs Assigned At BirthFemaleCKettering Memorial Hospitaltart: 09-23-2021 End: 99-90-7823Uqarmymb to SARS-CoV-2 (event)Not sureKettering Health Daytontart: 10-13-2021 End: 18-75-5947Hjevsop intakeEx-drinker (finding)[facility]art: 03-45-1737Oeyupci SDOH Alcohol CommentrarelyCleveland ClinicStart: 16-30-1586Cdq Assigned At [facility]tart: 06-03-2024 End: 42-85-6438QcuFmewze (finding)[facility] Hospitaltart: 21-76-9881Hqrdyjmrq beverage intakeCurrent drinker of alcohol (finding)[facility] HealthcareStart: 13-69-5227Hylbycq of Social functionNOMS HealthcareStart: 11-75-7795Xcvtnyi CommentRarelyNOMS HealthcareStart: 77-58-2817WcfBauehnQTSC HealthcareStart: 40-16-5133Rruagj identityIdentifies as female gender (finding) [facility] HealthcareStart: 88-13-3571Lcwkiye smoking status NHISEx-smokerNOMS HealthcareHistory of tobacco useCurrent smokerNOMS HealthcareHistory of tobacco useCigarette SmokerNOMS Healthcare Functional Status OaykZwhjaogflcSsxfgdSfqezanl28-86-8686Sjqjtawhcz StatusN/[facility] Clinical Notes 12-16-2011 to 03-02-2025 Note Date & BhtgKeonGxpweynb20-56-7102 Evaluation note* Author Jeff Jon [facility] 2024 12:50pmThe above note written by ___Gail Saul____ acting as human recorder, note dictated by Dr. Jones .I performed the above HPI, ROS, and Examination. I formulated and dictated the treatment plan and was present for entire encounter. Jeff Jon D.O. Author Jeff Jon [facility] 20[facility] 12:00pmThe above note written by ___Gail Saul____ acting as human recorder, note dictated by Dr. Jones .I performed the above HPI, ROS, and Examination. I formulated and dictated the treatment plan and was present for entire encounter. Jeff Jon D.O. [facility] Work Phone: 1(555) 328-784310-07-2025 Evaluation note* Author Jeff Jon [facility] 2024 12:00pmThe above note written by ___Gail Saul____ acting as human recorder, note dictated by Dr. Jones .I performed the above HPI, ROS, and Examination. I formulated and dictated the treatment plan and was present for entire encounter. Jeff Jon D.O. 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 Blnaton and showed normal coronary arteries with elevated [...] for sleep disturban (more content not included)... [facility]08-18-2025 NoteUT Cardiology - [facility] Subjective Canelo Pathak is a [...] Asymmetric SNHL (sensorineural hearing loss) Osteoarthritis Other [place] [facility] [place] (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 Palpitation Polyarthralgia Pulsatile tinnitus [...] and GERD who was admitted to the [facility] on 08/05/2024 with chest pressure and [...] She is not ill-appearing. (more content not included)...[facility]07-10-2025 Evaluation note* Author Jeff Jon [facility] 2024 12:34pmThe above note written by ___Gail Saul____ acting as human recorder, note dictated by Dr. Jones .I performed the above HPI, ROS, and Examination. I formulated and dictated the treatment plan and was present for entire encounter. Jeff Jon D.O. Author Jeff Jon [facility] 2024 10:35amThe above note written by ___Gail Saul____ acting as human recorder, note dictated by Dr. Jones .I performed the above HPI, ROS, and Examination. I formulated and dictated the treatment plan and was present for entire encounter. Jeff Jon D.O. [facility] Work Phone: 1(315) 851-283007-10-2025 Evaluation note* Author Jeff Jon [facility] 2024 12:34pmThe above note written by ___Gail Saul____ acting as human recorder, note dictated by Dr. Jones .I performed the above HPI, ROS, and Examination. I formulated and dictated the treatment plan and was present for entire encounter. Jeff Jon D.O. [facility] Work Phone: 1(270) 605-934904-14-2025 Evaluation note* Author Jeff Jon [facility] 2024 3:45pmThe above note written by ___Gail Saul____ acting as human recorder, note dictated by Dr. Jones .I performed the above HPI, ROS, and Examination. I formulated and dictated the treatment plan and was present for entire encounter. Jeff Jon D.O. [facility] Work Phone: 1(146) 341-229704-14-2025 Evaluation note* Author Jeff Jon [facility] HospitalAuthoredApril 2024 3:45pmThe above note written by ___Gail Saul____ acting as human recorder, note dictated by Dr. Jones .I performed the above HPI, ROS, and Examination. I formulated and dictated the treatment plan and was present for entire encounter. Jeff Jon D.O. Author Jeff Jon [facility] HospitalAuthoredJune 2024 10:35amThe above note written by ___Gail Saul____ acting as human recorder, note dictated by Dr. Jones .I performed the above HPI, ROS, and Examination. I formulated and dictated the treatment plan and was present for entire encounter. Jeff Jon D.O. [facility] Work Phone: 1(732) 697-776304-07-2025 NoteUT Cardiology - [facility] Subjective Canelo Pathak is a 58 y.o. year old female patient being seen to establish care. Patient complains of chest pain and palpitations. Patient states she was in [facility] patient 2 weeks ago at [facility] due to the palpitation. Patient she states she has had no change in how she feels. Still feeling palpitations, fatigued, SOB. Patient Active Problem List Diagnosis Abnormal taste in mouth Acid reflux Allergic rhinitis due to animal hair and dander Anxiety Asthma Binge eating disorder BMI 50.0-59.9, adult ([facility]) CFS (chronic fatigue syndrome) Cholesteatoma of attic of ear, right Diabetes ([facility]) Elevated blood pressure reading Fibromyalgia Gastroesophageal reflux disease with esophagitis Heraclio's disease Hepatitis Hyperlipidemia Hypertension Hypothyroidism Metabolic syndrome Asymmetric SNHL (sensorineural hearing loss) Osteoarthritis 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 Main [place] [address] [place] [address] CT Scan Report Signed Patient: Canelo Pathak MR#: [id number] : 1965 Acct:[id number] Age/Sex: 58 / F ADM Date: 5 Loc: CT Room: Type: [facility] Attending Dr: Carol Alegria DO Copies to: [...] Cameron Worthy M.D.07/30/2024 1:18 PM Dictation Location: [place] [address] Transcribed By: [facility] 07/30/24 1318 Dictated By: Cameron Worthy MD 07/30/24 1314 Signed By: 07/30/24 1318 [facility] Work Phone: 1(405) 920-381002-06-2025 Chief complaint+Reason for visit Narrative * Chief [...] Seasonal allergies September 08, 2024 9:5 8am [facility] Work Phone: 1(893) 642-423701-24-2025 Evaluation note* Author Jeff Jon [facility] 2024 2:07pmThe above note written by ___Gail Saul____ acting as human recorder, note dictated by Dr. Jones .I performed the above HPI, ROS, and Examination. I formulated and dictated the treatment plan and was present for entire encounter. Jeff Jon D.O. [facility] Work Phone: 1(497) 891-279201-24-2025 Evaluation note* Author Jeff Jon [facility] 2024 1:07pmThe above note written by ___Gail Saul____ acting as human recorder, note dictated by Dr. Jones .I performed the above HPI, ROS, and Examination. I formulated and dictated the treatment plan and was present for entire encounter. Jeff Jon D.O. [facility] Work Phone: 1(408) 841-797511-22-2024 Evaluation note* Author Jeff Jon [facility] 2023 4:16pmI performed the above HPI, ROS, and Examination. I formulated and dictated the treatment plan and was present for entire encounter. Jeff Jon D.O. [facility] Work Phone: 1(329) 164-455011-22-2024 Evaluation note* Author Jeff Jon [facility] 2023 4:16pmI performed the above HPI, ROS, and Examination. I formulated and dictated the treatment plan and was present for entire encounter. Jeff Jon D.O. Author Jeff Jon [facility] 2024 1:07pmThe above note written by ___Gail Saul____ acting as human recorder, note dictated by Dr. Jones .I performed the above HPI, ROS, and Examination. I formulated and dictated the treatment plan and was present for entire encounter. Jeff Jon D.O. [facility] Work Phone: 1(603) 444-343406-10-2024 Evaluation note* Author Jeff Jon [facility] 2023 3:26pmThe above note written by ___Gail Saul____ acting as human recorder, note dictated by Dr. Jones .I performed the above HPI, ROS, and Examination. I formulated and dictated the treatment plan and was present for entire encounter. Jeff Jon D.O. Author Jeff Jon [facility] 2023 3:16pmThe above note written by ___Gail Saul____ acting as human recorder, note dictated by Dr. Jones .I performed the above HPI, ROS, and Examination. I formulated and dictated the treatment plan and was present for entire encounter. Jeff Jon D.O. [facility] Work Phone: 1(462) 607-918606-10-2024 Evaluation note* Author Jeff Jon [facility] 2023 3:26pmThe above note written by ___Gail Saul____ acting as human recorder, note dictated by Dr. Jones .I performed the above HPI, ROS, and Examination. I formulated and dictated the treatment plan and was present for entire encounter. Jeff Jon D.O. [facility] Work Phone: 1(492) 175-105505-08-2024 Hospital Discharge instructionsAmbulatory Orders* Referral to Pain Management Time Frame: 09/26/23, Location: None [facility] Work Phone: 1(199) 923-460904-09-2024 Evaluation note* Author Jeff Jon [facility] 2023 11:59amThe above note written by ___Gail Saul____ acting as human recorder, note dictated by Dr. Jones .I performed the above HPI, ROS, and Examination. I formulated and dictated the treatment plan and was present for entire encounter. Jeff Jon D.O. [facility] Work Phone: 1(323) 845-806904-09-2024 Evaluation note* Author Jeff Jon [facility] HospitalAuthoredApril 2023 11:59amThe above note written by ___Gail Saul____ acting as human recorder, note dictated by Dr. Jones .I performed the above HPI, ROS, and Examination. I formulated and dictated the treatment plan and was present for entire encounter. Jeff Jon D.O. Author Jeff Jon [facility] HospitalAutKindred Hospital [facility] 2023 3:16pmThe above note written by ___Gail Saul____ acting as human recorder, note dictated by Dr. Jones .I performed the above HPI, ROS, and Examination. I formulated and dictated the treatment plan and was present for entire encounter. Jeff Jon D.O. [facility] Work Phone: 1(753) 446-455002-09-2024 Evaluation note* Encounter Date Diagnosis Assessment Notes Treatment Notes Treatment Clinical Notes Jun, Elevated blood pressure (ICD-10 - R03.0) [employer] Other 12-21-2023 Evaluation + Plan noteExtracted from:Title: [...] with any questions or concerns that arise. [facility]11-15-2023 Evaluation note* Encounter Date Diagnosis Assessment Notes Treatment Notes Treatment Clinical Notes Mar, Other chronic pain (ICD-10 - G89 .29) Mar,ERD (gastroesophageal reflux disease) (ICD-10 - K21.9) Mar,sthma (ICD-10 - J45.909) [employer] Other 10-30-2023 Evaluation note* Encounter Date Diagnosis Assessment Notes Treatment Notes Treatment Clinical Notes Feb, Asthma (ICD-10 - J45.909) Feb,Seasonal allergies (ICD-10 - J30.2) Feb,ERD (gastroesophageal reflux disease) (ICD-10 - K21.9) [employer] Other 10-05-2023 Evaluation note* Encounter Date Diagnosis [...] take the medication. She is going to [place] next week, so she will not make [...] disease) (ICD-10 - K21.9)Continue to follow with manager risk and take above medication as directed. Feb,Other [place] [facility] [place] (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 (ICD-10 - Z79.899) Feb,Hyperlipidemia, [...] 27.0. She did try to contact her water commissioner who prescribed the once weeklydose to see why the dose was so low, but she was told she had to go in for an appointment, and she did not do this. I would like her to increase her vitamin D supplement so in addition [facility] D3 2000 IU and take [...] Feb,OtherStephie was scheduled for surgery with Dr. Jiang but states that her pre surgical testing did not go well but in the meantime of getting that taken care of she got very sick and her issue cleared up so Dr. Jiang did not have to do the surgery.Last [...] variant or something in the balance center. [employer] Other 06-06-2023 Evaluation note* Encounter Date Diagnosis [...] understanding and is agreeable to treatment plan. [employer] Other 05-30-2023 Evaluation note* Encounter Date Diagnosis Assessment Notes Treatment Notes Treatment Clinical Notes September, Asthma (ICD-10 - J45.909) September,Seasonal allergies (ICD-10 - J30.2) September,ERD (gastroesophageal reflux disease) (ICD-10 - K21.9) [employer] Other 04-26-2023 Evaluation note* Encounter Date Diagnosis Assessment Notes Treatment Notes Treatment Clinical Notes Aug, Asthma (ICD-10 - J45.909) Aug,Seasonal allergies (ICD-10 - J30.2) Aug,ERD (gastroesophageal reflux disease) (ICD-10 - K21.9) [employer] Other 03-24-2023 Evaluation note* Encounter Date Diagnosis [...] water inside ear after shower may use vice chairman on lowest cool setting to blow dry. Follow up with PCP or UC if no improvement in the next 2-3 days. Immediate eval for severe ear pain, severe headache, neck pain/stiffness, pain, erythema, or swelling behind the ear, fever, N/V, hearing loss, fever, or any other new or concerning symptoms. Patient verbalizes understanding and is agreeable to treatment plan. [facility] Other 03-20-2023 Evaluation note* Encounter Date Diagnosis [...] with Prednisone. Jul,Other10:38 AM - 10:46 AM [facility] Other 02-22-2023 Evaluation note* Encounter Date Diagnosis Assessment Notes Treatment Notes Treatment Clinical Notes Jun, Elevated blood pressure (ICD-10 - R03.0) [facility] Other 02-22-2023 Evaluation note* Encounter Date Diagnosis [...] with above medication daily as directed. Jun,[facility] [place] [facility] 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 (ICD-10 - Z79.899) Jun,Nocturia [...] her to discuss this pain with her PHARMACEUTICAL BOTANIST when seen in July (2022) and her gastro doctor when she has the colonoscopy. She voices that she had endometriosis in the past and was told it could return, this does feel violeta lar to that, so she will discuss it with her water commissioner. Jun,Elevated blood pressure (ICD-10 - R03.0)Her blood [...] ofthe intestine. She is following with a CHILD SUPPORT INVESTIGATOR (Cass Cheney) in [place], [place]. She has to do a stool [...] do this. She has not seen an PHARMACEUTICAL BOTANIST in a year and a half but [...] her fingers, I did recommend she buy [place] at [facility] and apply this to her hands at night. [facility] Other 01-25-2023 Evaluation note* Encounter Date Diagnosis Assessment Notes Treatment Notes Treatment Clinical Notes May, Asthma (ICD-10 - J45.909) [facility] Other 11-22-2022 Evaluation note* Encounter Date Diagnosis Assessment Notes Treatment Notes Treatment Clinical Notes Mar, Hypothyroidism, unspecified (ICD -10 - E03.9) She voices that she is not going to return to see the transfer table operator helper for evaluation. She voices that her results [...] once weekly that was ordered by her PHARMACEUTICAL BOTANIST and she would like this office to take over filling this prescription. I will order a Vitamin D level to be done in three months. Mar,ther [place] [facility] (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 (ICD-10 - Z79.899) Mar,Hyperlipidemia, [...] She agrees and a referral is provided. [facility] Other 11-01-2022 Evaluation note* Encounter Date Diagnosis Assessment Notes Treatment Notes Treatment Clinical Notes Mar, Hypothyroidism, unspecified (ICD -10 - E03.9) [facility] Other 11-01-2022 Evaluation note* Encounter Date Diagnosis Assessment Notes Treatment Notes Treatment Clinical Notes Mar, Asthma (ICD-10 - J45.909) Mar,GERD (gastroesophageal reflux disease) (ICD-10 - K21.9) [facility] Other 07-19-2022 Evaluation note* Encounter Date Diagnosis Assessment Notes Treatment Notes Treatment Clinical Notes Nov, Asthma (ICD-10 - J45.909) Nov,easonal allergies (ICD-10 - J30.2) [facility] Other 06-02-2022 Evaluation note* Encounter Date Diagnosis [...] E03.9)Again, she voices that she saw the transfer table operator helper recently and was on 2 of the [...] uses the Fluticasone nasal spray daily. 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 [facility] Other 05-26-2022 NoteHNO ID: [id number] Author: Anila Jimenez APRN.[facility] Service: ? Author Type: Nurse Practitioner Type: Progress Notes Filed: 10/13/2021 4:47 PM Note Text: ENDOCRINOLOGY, DIABETES AND METABOLISM DIABETES FOLLOW UP VISIT This Team Access Model visit is a phone encounter and Canelo Pathak has consented to this virtual encounter. This is a virtual visit using Opzi video visit. It is a required patient-provider [...] daily. - mometasone furoate(NASONEX 50 MCG/ACTUATION SPRAY) [place] twice in each nostril once daily. - cetirizine hcl(ZYRTEC 10 MG TAB) Take one(1) tablet daily. - fluticasone/salmeterol(ADVAIR DISKUS 250 MCG-50 MCG/DOSE FOR INHALATION) Take one(1) inhalation twice daily; rinse and gargle mouth with water after each use. No current facility-administered medications for this visit. Immunization History Administered Date(s) Administered COVID-19 vaccine, age 12+ yr ([employer] - PURPLE TOP) 09/02/2020 09/23/2020 Social History [...] >=60 mL/min/1.73m? 103 Corrected (more content not included)...[facility]05-26-2022 History of Present illness Narrative* Anila Jimenez APRN.SPECIAL EVENTS DRIVER - 10/13/2021 4:15 PM EDT ENDOCRINOLOGY, DIABETES & METABOLISM DIABETES FOLLOW UP VISIT This Team Access Model visit is a phone encounter and Canelo Pathak has consented to this virtual encounter. This is a virtual visit using Opzi video visit. It is a required patient-provider [...] capsule daily. mometasone furoate(NASONEX 50 MCG/ACTUATION SPRAY) [place] twice in each nostril once daily. cetirizine hcl(ZYRTEC 10 MG TAB) Take one(1) tablet daily. fluticasone/salmeterol(ADVAIR DISKUS 250 MCG-50 MCG/DOSE FOR INHALATION) Take one(1) inhalation twice daily; rinse and gargle mouth with water after each use. No current facility-administered medications for this visit. Immunization History Administered Date(s) Administered COVID-19 vaccine, age 12+ yr ([employer] - [facility]) 09/02/2020 09/23/2020 Social History Tobacco Use Smoking [...] which included preparing to see the patient, sagr-ln-jims patient care, completing clinical documentation, obtaining and/or reviewing separately obtained history, performing a medically appropriate examination, counseling and educating the pat ient/family/caregiver and ordering medications, tests, or procedures. Anila Jimenez APRN.SPECIAL EVENTS DRIVER [facility] [place] documented in this encounterAv[facility] NoteHNO ID: [id number] Author: Leena Seymour MD Service: ? Author [...] mcg (5,000 unit) cap - Vitamin D [place] ([employer]) Take 1 capsule by mouth daily with food. - montelukast (SINGULAIR) 10 mg tablet Take 10 mg by mouth daily at bedtime. - MULTIVIT-MINERALS/FERROUS GLUC (CENTRAM-CARE ORAL) Take by mouth twice daily. - esomeprazole mag trihydrate(NEXIUM 40 MG CAP) Take one(1) capsule daily. - mometasone furoate(NASONEX 50 MCG/ACTUATION SPRAY) [place] twice in each nostril once daily. - [...] effexor. Will check routine labs. Leena Seymour [facility]05-20-2022 History of Present illness Narrative* Leena [...] 125 mcg (5,000 unit) cap Vitamin D [place] ([employer]) Take 1 capsule by mouth daily with food. montelukast (SINGULAIR) 10 mg tablet Take 10 mg by mouth daily at bedtime. MULTIVIT-MINERALS/FERROUS GLUC (CENTRAM-CARE ORAL) Take by mouth twice daily. esomeprazole mag trihydrate(NEXIUM 40 MG CAP) Take one(1) capsule daily. mometasone furoate(NASONEX 50 MCG/ACTUATION SPRAY) [place] twice in each nostril once daily. cetirizine [...] labs. Leena Seymour MD documented in this encounterAvita [facility]05-16-2022 Miscellaneous Notes* Telephone Encounter - Renea Mcfarland [employer]razzo Tile Setter - 10/03/2021 3:02 PM EDT Patient called in asking for routine lab orders to be placed. Patient stated she will schedule her appointment soon. Done. Asad Ansari MD documented in this encounterAvita [facility]03-04-2022 NoteHNO ID: [id number] Author: Asad Ansari MD Service: ? Author Type: Physician Type: Progress Notes Filed: 07/22/2021 10:43 AM Note Text: VIRTUAL VISIT PROGRESS NOTE This is a virtual visit using Picateers video platform. It required patient-provider interaction for [...] mcg (5,000 unit) cap - Vitamin D [place] ([employer]) Take 1 capsule by mouth daily with food. - montelukast (SINGULAIR) 10 mg tablet Take 10 mg by mouth daily at bedtime. - MULTIVIT-MINERALS/FERROUS GLUC (CENTRAM-CARE ORAL) Take by mouth twice daily. - esomeprazole mag trihydrate(NEXIUM 40 MG CAP) Take one(1) capsule daily. - mometasone furoate(NASONEX 50 MCG/ACTUATION SPRAY) [place] twice in each nostril once daily. - [...] Date(s) Administered COVID-19 vaccine, age 12+ yr ([employer] - PURPLE TOP) 09/23/2020 Labs: HbA1c. TSH. [...] 2 months - virt (more content not included)...[facility]02-14-2022 Evaluation note* Encounter Date Diagnosis Assessment Notes Treatment Notes Treatment Clinical Notes Jun, Lumbar pain (ICD-10 - M54.50) Jun,Leg pain (ICD-10 - M79.606)bilateral 14 Jun, 2021Hyperlipidemia (ICD-10 - E78.5) [facility] Other 02-02-2022 Miscellaneous Notes* Telephone Encounter - Neema Gunderson Adm - 06/22/2021 9:09 AM EST Patient called in requesting the results of her labs that she had completed on 06/16/2021 Canelo can be reached at [phone] (C) or can be reached through [employer]. documented in this encounterAvita [facility]01-27-2022 NoteHNO ID: [id number] Author: Asad Ansari MD Service: ? Author Type: Physician Type: Progress Notes Filed: 06/16/2021 1:56 PM Note Text: Last Visit: This is the first visit. Ms. Pathak is here for follow up regarding her DM Type 2 and hypothyroidism. Current Immunizations: Most Recent Immunizations Administered Date(s) Administered COVID-19 vaccine, age 12+ yr ([employer] - PURPLE TOP) 09/23/2020 PHYSICAL EXAMINATION: BP [...] mouth daily before breakfast. - Vitamin D [place] ([employer]) Take 1 capsule by mouth daily with food. - montelukast (SINGULAIR) 10 mg tablet Take 10 mg by mouth daily at bedtime. - MULTIVIT-MINERALS/FERROUS GLUC (CENTRAM-CARE ORAL) Take by mouth twice daily. - esomeprazole mag trihydrate(NEXIUM 40 MG CAP) Take one(1) capsule daily. - mometasone furoate(NASONEX 50 MCG/ACTUATION SPRAY) [place] twice in each nostril once daily. - [...] Hair?: Yes Cold Intolerance: Yes Heat Intolerance?: Yes[facility]* Encounter Date Diagnosis Assessment Notes Treatment Notes Treatment Clinical Notes Apr, Diabetes (ICD-10 - E11.9) [facility] Other 10-27-2021 Evaluation note* Encounter Date Diagnosis Assessment Notes Treatment Notes Treatment Clinical Notes Feb, Hypothyroidism, unspecified (ICD -10 - E03.9) Feb,olyarthralgia (ICD-10 - M25.50) [facility] Other 10-26-2021 Evaluation note* Encounter Date Diagnosis [...] weeks to check her thyroid levels. [place] [facility] 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 (ICD-10 - Z79.899) Feb,elvic [...] says by 5-6 weeks it was gone. [facility] Other 10-07-2021 Evaluation note* Encounter Date Diagnosis Assessment Notes Treatment Notes Treatment Clinical Notes Feb, Bronchitis (ICD-10 - J40) [facility] Other 10-04-2021 Evaluation note* Encounter Date Diagnosis Assessment Notes Treatment Notes Treatment Clinical Notes Feb, Asthma (ICD-10 - J45.909) Feb,GERD (gastroesophageal reflux disease) (ICD-10 - K21.9) Feb,easonal allergies (ICD-10 - J30.2) [facility] Other 07-28-2012 History general Narrative - Reported* Type Description Date Medical History asthma Medical Yqxhkwy83/28/12 Right hand x-rayMedical Eepcbjl37/28/12 Blood work Lipid, CMP, CBC, T4, TSH, HGA1C (6.3)Medical Ifzetaw04/22/12-stress test at [facility] Medical HistoryHypothyroidismMedical Vldslrr4359 mammogramMedical History12/21/15 EKGMedical History12/29/15 [facility]urgical Historytonsillectomy and jrngnywwxfiuu3297Yigpjjze Historycholecystectomy08/2008Surgical Historygall bladder08/2008Surgical Historytubes in orfd7631/78Surgical Historylaproscopic fibroid riugwnr7605/16/2010Surgical Qjzezdmyslqfspqwopr--9456Wrwlvleg Historymammogram [facility] - Dr Alvarez07/17/17urgical HistoryERCP 09/17/17Hospitalization Historygall bladder08/2008Hospitalization History tonsillectomyHospitalization Historytubes in earsHospitalization History heart(over night opservation)08/2007Hospitalization Yypiuhkqlbaahyhr0788 Hospitalization Historyabnormal liver function [id number] [facility] Other 07-28-2012 History general Narrative - Reported* Type Description Date Medical History asthma Medical Hdoobrc68/28/12 Right hand x-rayMedical Nhnkzxd49/22/12[facility] HistoryHypothyroidismMedical Cpjhfwg9928 mammogramMedical History 12/21/15 EKGMedical History12/29/15 [facility]urgical Historytonsillectomy and ogoufddjwcavv7597Onhhvfvn Historycholecystectomy08/2008Surgical Historygall bladder08/2008Surgical Historytubes in brzx6390/78Surgical Historylaproscopic fibroid sdjkskd6305/16/2010Surgical Fnqgafggoeihigjpgjy-byjhi70-2093Zfirqvgc Historymammogram [facility] - [facility] Alvarez07/17/17urgical HistoryERCP 09/17/17Hospitalization Historygall bladder08/2008Hospitalization History tonsillectomyHospitalization Historytubes in earsHospitalization History heart(over night opservation)08/2007Hospitalization Kdiecnklmmxxdhoh1613 Hospitalization Historyabnormal liver function [id number] [facility] Other 07-28-2012 History general Narrative - Reported* Type Description Date Medical History asthma Medical Creipyk71/28/12 Right hand x-rayMedical Akuddpj45/22/12[facility] HistoryHypothyroidismMedical Drusvvu6566 mammogramMedical History 12/21/15 EKGMedical History12/29/15 Stress Test [facility] Historyspinal stenosis Surgical Historytonsillectomy and bbpiuhkowczwo2700Pfygjpxy History cholecystectomy08/2008Surgical Historygall bladder08/2008Surgical Historytubes in bhnn5692/78Surgical Historylaproscopic fibroid cubtegl3605/16/2010Surgical History mknjbvbcgjue-vezzo35-8199Qkafrhcn Historymammogram [facility] - [facility] Alvarez07/17/urgical HistoryERCP4/Hospitalization Historygall bladder 08/2008Hospitalization HistorytonsillectomyHospitalization Historytubes in ears Hospitalization Historyheart(over night opservation)08/2007Hospitalization Urlffdeocdtxphgx0655Cmvtaxjrcdydrer Historyabnormal liver function kgrl5057 [facility] Other Evaluation note* Diagnosis Acquired hypothyroidism- Primary Unspecified hypothyroidism Controlled type 2 diabetes mellitus without complication, without long-term current use of insulin (HCC) [facility]* Diagnosis Fibromyalgia- Primary Mylagia and myositis, unspecified ALDEN (generalized anxiety disorder) Generalized anxiety disorder documented in this encounter [facility]Eval[facility]* Diagnosis Type 2 diabetes mellitus with hyperglycemia, without long-term current use of insulin (HCC)- Primary Heraclio's disease Chronic lymphocytic thyroiditis documented in this encounter [facility] HospitalEvalubeebe healthcare noteNo InformationForks Community Hospital pro[facility] Other Evaluation noteForks Community Hospital [facility] Other Evaluation note* Diagnosis Onset Date Resolution Status Anxiety acuteAsthmaacuteDiabetesacuteElevated blood pressure readingacuteFatigueacute GERD (gastroesophageal reflux disease)acuteHyperlipidemiaacuteHypothyroidism acuteOther chronic painacuteOther 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acute PalpitationacuteVitamin D deficiencyacute [facility] Work Phone: Evaluation note* Diagnosis Onset Date Resolution Status Chronic pain acuteHip painacuteLumbar stenosisacuteSacroiliitisacuteChronic painacuteHip pain acuteLumbar radiculopathyacuteLumbar stenosisacuteSacroiliitisacuteChronic pain acuteLumbar radiculopathyacuteLumbosacral spondylosisacuteSacroiliitisacute [facility] Work Phone: Evaluation note* Diagnosis Onset Date Resolution Status Chronic pain acuteHip painacuteLumbar stenosisacuteSacroiliitisacuteChronic painacuteHip pain acuteLumbar radiculopathyacuteLumbar stenosisacuteSacroiliitisacuteChronic pain acuteLumbar radiculopathyacuteLumbosacral spondylosisacuteSacroiliitisacute Chronic painacuteLumbar radiculopathyacuteLumbosacral spondylosisacute Sacroiliitisacute [facility] Work Phone: Evaluation note* Diagnosis Onset Date Resolution Status Chronic pain acuteLumbar radiculopathyacuteLumbosacral spondylosisacuteSacroiliitisacute Chronic painacuteLumbar radiculopathyacuteLumbosacral spondylosisacute SacroiliitisacuteAsthmaacuteGERD (gastroesophageal reflux disease)acuteSeasonal allergiesacute [facility] Work Phone: History general Narrative - ReportedNort [employer] Other History general Narrative - Reported* Type Description Date Medical History asthma Medical HistoryHypothyroidismMedical Historyspinal stenosisMedical History diabetes mallitusMedical Historychronic depressionMedical HistoryanxietyMedical HistoryhyperlipidemiaMedical HistoryobesityMedical HistoryfibromyalgiaMedical Historyshoulder painSurgical Historytonsillectomy and zcbxqfuxfjfyj9875Lrljlymq Historycholecystectomy08/2008Surgical Historygall bladder08/2008Surgical History tubes in ahwd6810/78Surgical Historylaproscopic fibroid czxyard1505/16/2010 Surgical Qlrzrxirpgaczmashcv--8649Pmyvezrk Historymammogram [facility] Alvarez07/17/urgical HistoryERCP4/Hospitalization Historygall bladder08/2008Hospitalization HistorytonsillectomyHospitalization Historytubes in earsHospitalization Historyheart(over night opservation)08/2007 Hospitalization Wzemzglqfejwipsi8893Weabznepbjffvdy Historyabnormal liver function rwqm7295 [employer] Other History general Narrative - Reported* Type Description Date Medical History asthma Medical HistoryHypothyroidismMedical Historyspinal stenosisMedical History diabetes mallitusMedical Historychronic depressionMedical HistoryanxietyMedical HistoryhyperlipidemiaMedical HistoryobesityMedical HistoryfibromyalgiaMedical Historyshoulder painMedical Historyseasonal allergiesMedical HistoryEsophageal refluxSurgical Historytonsillectomy and ccityhopmcipk6965Zknbxulg History cholecystectomy08/2008Surgical Historygall bladder08/2008Surgical Historytubes in vigi0079/78Surgical Historylaproscopic fibroid gsaegsd2805/16/2010Surgical History bqemnslwxqbo--8669Hmhqotel Historymammogram [facility] - Dr Alvarez07/17/17urgical HistoryERCP4/Hospitalization Historygall bladder 08/2008Hospitalization HistorytonsillectomyHospitalization Historytubes in ears Hospitalization Historyheart(over night opservation)08/2007Hospitalization Gyyapgytshlhbrqv9483Laxfyjjzuirnseb Historyabnormal liver function ihir8541 [facility] Other Hospital course Narrative No data available for this section [facility] instructions No data available for this section [facility] Discharge instructionsAmbulatory Orders* Referral to Orthopedics Time Frame: 06/26/24, Location: None [facility] Work Phone: Progress note No data available for this section [facility] HospitalReason for referral (narrative)No reason for referral information availableLutheran Hospital Work Phone: Reason for visit Narrativereview labs, discuss multiple issues, see treatment plan for further informationNoHaven [facility] Other Reason for visit Narrativereview labs, discuss multiple issues, see treatment planNoHaven [facility]al [facility] Other Summary Purpose Family History Relationship Condition [...] September 14, 018 8:20pm Reason for Referral SpecialtyDiagnoses / ProceduresReferred By ContactReferred To [facility] Diagnoses Fibromyalgia Procedures CONSULT TO [facility] (CH[facility] PAIN) OFFICE/OUTPATIENT [facility] 60-74 MINUTES Leena Seymour MD [address] [place] [address] Referral IDStatusReasonStart DateExpiration DateVisits RequestedVisits [id number] Review PCP Requested Referral / Reason appt pt needs cons ult to discuss weight loss, diabetes Diagnosis 1 Diabetes (E11.9) Referral Organization [facility] Referring Provider First Name Jeff Referring Provider Last Name Dontrell Referring Provider Specialty Family Prac debbi Referred Organization [facility] Referred Provider Carl Valdivia Jr. Referred Address [address],[place], [place],[address] Referred Provider Specialty Internal Med icine Referral Priority Routine General Notes TalbertViktoria zunigaorah 03/15/2021 01:33:19 PM > [facility] form faxed. pt understands she will be contacted to schedule the appt Reason appt pt needs scre ening colonoscopy Diagnosis 1 Colon cancer screeni ng (Z12.11) Referral Organization [facility] [place] Referring Provider First Name Jeff Referring Provider Last Name Dontrell Referring Provider Specialty Family Prac debbi Referred Organization [facility] Gastroenterolo gy Referred Provider Howard Kunz Referred Address [address] ,[place], [place],[address] Referred Provider Specialty Gastroentero logy Referral Priority Routine General Notes Svetlana Talbert 04/11/2022 01:25:30 PM > referral sent p2p. pt understands she will be contacted to schedule this appt. Reason appt pt will call to schedule this appt consult for continued ear pain despite antibiotic treatment Diagnosis 1 Right acute otitis m edia (H66.91) Referral Organization [facility] [place] Referring Provider First Name Jeff Referring Provider Last Name Dontrell Referring Provider Specialty Family Prac debbi Referred Organization [facility] Referred Provider Jennie Jiang Referred Address ,[place], [place],[address] Referred Provider Specialty Ear, Nose an d Throat Referral Priority Routine Referral Appointment Date 2022-08-14 General Notes Svetlana Talbert 08/14/2022 10:48:22 AM > referral sent p2p with TE message, visit note and phone visit note from 08/07. pt was provided with the phone number and will call this afternoon to schedule an appt. 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 Palp[place] Vitamin D deficiency Asymmetrical sensorineural hearing loss Chronic pain Elevated blood pressure reading Tinnitus Chief Complaint review labs BP/discuss meds/ENT review thyroid labsReason for VisitAnxiety Asthma Diabetes Elevated blood pressure reading Fatigue GERD (gastroesophageal reflux disease) Hyperlipidemia Hypothyroidism Other chronic pain [facility] 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 [place] Vitamin D deficiency [...] 2024 10:24am GERD (gastroesophageal reflux disease) F [facility] 2024 10:24am Nausea July 16, 2024 10:24am [...] 2024 10:24am GERD (gastroesophageal reflux disease) F [facility] 2024 10:24am Nausea July 16, 2024 10:24am [...] September 08, 2024 9:58am telephone/cough/green phlegm October 24 025 10:11am review labs November 27, 2024 [...] Complaint Admit Date telephone/cough/green phlegm October 24 025 10:11am review labs November 27, 2024 [...] 9:32 am blood sugars/discuss meds February 24 025 11:04am Reason for Visit Admit Date Diabetes [...] 08, 2024 9:32am GERD (gastroesophageal reflux disease) 2024 9:32am Seasonal [...] 9:32 am blood sugars/discuss meds February 24 025 11:04am review labs March 02, 2025 1 1:46am Reason for Visit Admit Date Asthma December 08, 2024 9:32 am COPD (chronic obstructive pu lmonary disease) with emphysema December 08, 2024 9:32am GERD (gastroesophageal reflux disease) J 2024 9:32am Seasonal allergies December 08, 2024 [...] Vitamin D deficiency March 02, 2025 11:46am Chief Complaint Admit Date blood sugars/discuss meds February 24, 2 025 11:04am review labs March 02, [...] disease) with emphysema March 19, 2025 11:05am Additional Source Comments INFORMATION SOURCE (unrecogn ized section and content) DATE CREATED AUTHOR 10/10/2018 [facility] DATE CREATED AUTHOR AUTHOR'S ORGANIZ ATION 05/13/2022 [facility] DATE CREATED AUTHOR AUTHOR'S ORGANIZ ATION 09/15/2022 [facility] DATE CREATED AUTHOR AUTHOR'S ORGANIZ ATION 12/19/2022 [facility] DATE CREATED AUTHOR AUTHOR'S ORGANIZ ATION 10/14/2023 [facility] DATE CREATED AUTHOR AUTHOR'S ORGANIZ ATION 10/24/2023 [facility] DATE CREATED AUTHOR AUTHOR'S ORGANIZ ATION 01/31/2024 [facility] DATE CREATED AUTHOR AUTHOR'S ORGANIZ ATION 11/30/2024 [facility] DATE CREATED AUTHOR AUTHOR'S ORGANIZ ATION 02/11/2025 [facility] Source Comments (unrecognize d section and content) In the event this informatio n is protected by the Federal Confidentiality of Alcohol and Drug Abuse Patient Records regulations: The Federal rules restrict any use of the information to criminally investigate or prosecute any alcohol or drug abuse patient.[facility] the event this information is protected by the Federal Confidentiality of Alcohol and Drug Abuse Patient Records regulations: The Federal rules restrict any use of the information to criminally investigate or prosecute any alcohol or drug abuse patient.[facility] the event this information is protected by the Federal Confidentiality of Alcohol and Drug Abuse Patient Records regulations: The Federal rules restrict any use of the information to criminally investigate or prosecute any alcohol or drug abuse patient.[facility] the event this information is protected by the Federal Confidentiality of Alcohol and Drug Abuse Patient Records regulations: The Federal rules restrict any use of the information to criminally investigate or prosecute any alcohol or drug abuse patient.[facility] Hospital[facility] the event this information is protected by the Federal Confidentiality of Alcohol and Drug Abuse Patient Records regulations: The Federal rules restrict any use of the information to criminally investigate or prosecute any alcohol or drug abuse patient.[facility] Reason for Visit (unrecogniz ed section and content) ReasonCommentsLab OrdersReasonCommentsThyroid ProblemDiabetesReasonComments AppointmentReasonCommentsPatient Question Care Teams (unrecognized sec tion and content) Team Status: Active Member Role Status Zach Jon DO Primary Care Provider Active Team Status: Inactive Member Role Status Zach Jon DO Primary Care Provider Active S tart: December 08, 2024 End: December 08, 2024Heidi SHARON RicoN ACNP-BCAttending ProviderActiveStart: December 08, 2024 End: December 08, 2024 Team Status: Active Member Role Status Zach Jon DO Primary Care Provider Active S tart: January 06, 2025 Neo Espino MDAttryan ProviderActiveStart: January 06, 2025 Team Status: Active Member Role Status Zach Jon DO Primary Care Provider Active S tart: January 27, 2025 Neo Espino MDAttryan ProviderActiveStart: January 27, 2025 Team Status: Inactive [...] S tart: November 26, 2024 Jeff Jon DOAttending ProviderActiveStart: November 26, 2024 Team Status: Inactive Member Role Status Zach Jon DO Primary Care Provider Active S tart: November 27, 2024 End: November 27, 2024Dakorin Jon DOAttending ProviderActiveStart: November 27, 2024 End: November 27, 2024 Team Status: Inactive Member Role Status Zach Jon DO Primary Care Provider Active S tart: July 16, 2024 End: July 16atherine L Ly , DOAttending ProviderActiveStart: July 16, 2024 End: July 16, 2024 Team Status: Inactive Member Role Status Zach Jon DO Primary Care Provider Active S tart: July 30, 2024 End: July 305Catherine L Ly , DOAttending ProviderActiveStart: July 30, [...] tart: September 08, 2024 End: September 08, 2024Hefredo Rico OFFSET PRESS ASSISTANT ACNP-BCAttending ProviderActiveStart: September 08, 2024 End: September [...] tart: June 03, 2024 End: June 03, 2024Shsavannah Brown , AUSTINttending ProviderActiveStart: June 03, 2024 End: June 03, [...] March 26, 2024 End: March 26, 2024Hefredo Rico APRN ACNP-BCAttending ProviderActiveStart: March 26, 2024 End: March 26, 2024 Team Status: Inactive Member Role Status Zach Jon DO Primary Care Provide r, Referring Provider Active Start: December 05, 2023 End: December 05, 2023Logan Brown MDAttending ProviderActiveStart: December 05, 2023 End: December 05, 2023 Team Status: Inactive Member Role Status Zach Jon DO Primary Care Provider Active S tart: December 05, 2023 End: December 05, 2023Logan Brown MDAttending ProviderActiveStart: December 05, 2023 End: December 05, 2023 Team Status: Inactive Member Role Status Zach Jon DO Primary Care Provider Active S tart: December 19, 2023 End: December 19, 2023Logan Brown MDAttending ProviderActiveStart: December 19, 2023 End: December [...] February 05, 2024 End: February 05, 2024Sherif Spike Brown , MDAttending ProviderActiveStart: February 05, 2024 End: [...] Jeff Jon, DO [address] [place] [address] PCP - [facility]08/01/18Team MemberRelationshipSpecialtyStart DateEnd Date eJff Jon, DO [address] [place] [address] PCP - [facility]08/01/18Team MemberRelationshipSpecialtyStart DateEnd Date Jeff Jon, DO [address] [place] [address] PCP - [facility]08/01/18Team MemberRelationshipSpecialtyStart DateEnd Date Jeff Jon, DO [address] [place] [address] PCP - [facility]08/01/18Team MemberRelationshipSpecialtyStart DateEnd Date Jeff Jon, DO [address] [place] [address] PCP - [facility]08/01/18 Team Status: Active Member Role Status Zach [...] S tart: February 05, 2024 Logan Brown , MDAttending ProviderActiveStart: February 05, 2024 Team Status: Inactive Member Role Status Zach Jon DO Primary Care Provider Active S tart: February 12, 2024 End: February 12, 2024Shsavannah Brown , MDAttending ProviderActiveStart: February 12, 2024 End: February 12, 2024 Team Status: Inactive Member Role Status Zach Jon DO Primary Care Provide r, Attending Provider Active Start: October 24, 2024 End: October 24, 2024 Team Status: Inactive Member Role Status Zach Jon DO Primary Care Provider Active S tart: September 01, 2024 End: September 01, 2024Jeff Jon DOAttryan ProviderActiveStart: September 01, 2024 End: September 01, 2024 Team Status: Active Member Role Status Zach Jon DO Primary Care Provider Active S tart: September 05, 2024 Misty Quijano ProviderActiveStart: September 05, 2024 Team Status: Inactive Member Role Status Zach Jon DO Primary Care Provider Active S tart: October 24, 2024 End: October 24, 2024Dabeckisergio Jon DOAttending ProviderActiveStart: October 24, 2024 End: October 24, 2024 Team Status: Active Member Role Status Zach ShaneDO cassi Primary Care Provider Active S tart: November 20, 2024 Jeff DO DontrellAttending ProviderActiveStart: November 20, 2024 Team Status: Active Member Role/Relationship Status Zach Jon DO Primary Care Provider Active Team Status: Active Member Role/Relationship Status Zach Jon DO Primary Care Provider Active S tart: January 06, 2025 Neo Marii Espino , MDAttending ProviderActiveStart: January 06, 2025 Team Status: Active Member Role/Relationship Status Zach Jon DO Primary Care Provider Active S tart: January 27, 2025 Neo Marii Espino , MDAttending ProviderActiveStart: January 27, 2025 Team Status: Inactive Member Role/Relationship Status Zach Jon DO Primary Care Provider Active S tart: February 24, 2025 End: February 24, 2025Dabeckisergio Jon DOAttending ProviderActiveStart: February 24, 2025 End: February 24, 2025 Team Status: Inactive Member Role/Relationship Status Zach Jon Primary Care Provider Active S tart: March 02, 2025 End: March 02, 2025Dabeckisergio Jon DOAttending ProviderActiveStart: March 02, 2025 End: March 02, 2025 Team Status: Inactive Member Role/Relationship Status Zach Jon DO Primary Care Provider Active S tart: March 19, 2025 End: March 19, 2025Dakorin DO DontrellAttending ProviderActiveStart: March 19, 2025 End: March 19, 2025Team MemberRelationshipSpecialtyStart DateEnd Date Jeff Jon MD [address] [place] [id number] PCP - GeneralFamily Medicine10/18/22 Goals (unrecognized section and content) Goals may [...] BE BASED ON THE PRIMARY CLINICAL RECORDS. [email or web address] provides no warranty or guarantee of the accuracy or completeness of information in this document.
--- OUTSIDE RECORDS SUMMARY | 2025-03-24 21:19 | XMS_ITS | CCD ---
Author Organization [facility] Care Team Providers Care Mailhouse Operator Name Role Phone JEFF JON Primary Care Unavailable ELLE DODD Referring Unavailable Jeff Jon DO Primary Care Provider [phone] Carlos Terrazas Unavailable [phone] Jeff Jon Unavailable Vandana Jordan Unavailable Carl Valdivia Unavailable Lorena Rico Unavailable Jeff Jon DO Primary Care Provider [phone] JEFF JON Primary Care Unavailable LEENA SEYMOUR [...] Attending Unavaila Jeff Lopez Primary Care Physician [phone] DO Casper Nguyen Admitting Unavailabl e Casper [...] Care Provider MD Logan Brown Attending Provider Jeff Jon DO Primary Care Unavailab le DeVaul PASSEMENTERIE WORKER-STORE RECEIVING CLERK, Cass Zavaleta Attending Unav ailable Jeff Jon DO Primary Care Unavailab le DeVaul PASSEMENTERIE WORKER-STORE RECEIVING CLERK, Cass Zavaleta Attending Unav ailable Jeff Jon DO Primary Care Unavailab le DeVaul PASSEMENTERIE WORKER-STORE RECEIVING CLERK, Cass Zavaleta Attending Unav ailable Jeff Jon DO Primary Care Unavailab sanjeev George MD, Librado Kumar Attending Unavaila ble Jeff Jon DO Primary Care Provider Ly DO, Carol Rogers Attending Provider Jeff Jon DO Primary Care Provider Jeff Jon DO Attending Provider Lorena Rico APRN Attending Provider [phone] Jeff Jon Admitting Unavailable Jeff Jon Attending Unavailable Stephanie, Logan S Admitting Unavailable Stephanie, Logan S Attending Unavailable Jeff Jon Primary Care Unavailable Ly, Carol L Admitting Unavailable Ly, Carol L Attending Unavailable Jeff Jon Primary Care Unavailable Ly, Carol L Admitting Unavailable Ly, Carol L Attending Unavailable Jeff Jon Primary Care Unavailable Jeff Jon DO Primary Care Provider [phone] Jeff Jon DO Attending Provider [phone] Jacky PASSEMENTERIE WORKERLorena Lea Attending Provider [phone] [place], EHAB Admitting Unavailable ABNER, MARCIOAB Attending Unavailable NEO ESPINO Attending Unavailable MOUKANEO DESAI Attending Unavailable ENO ESPINO Attending Unavailable [place], EHAB Referring Unavailable Jeff Jon DO Primary Care Provider [phone] Jeff Jon DO Attending Provider [phone] Neo Espino MD, V Attending Provider Jeff Jon DO Primary Care Provider Jeff Jon DO Attending Provider Jeff Jon DO Primary Care Provider Jeff Jon MD Primary Care Provider Allergies Allergy ClassificationReported Allergen(s)Allergy TypeDate of OnsetReaction(s) FacilityMacrolides (antibiotic) (1 source)ClarithromycinDrug Vvzqiir88-45-2008ofqcdryiNsvfevach Regional Medical CenterQuinolones (antibiotic) (2 sources)levoFLOXacinDrug Szrwsqk07-28-9181Govivlxqp Pain, itches/pain, Abdominal PainUniversity Hospitals Beach[facility] (6 sources)Cefuroxime; Translations: [CEFUROXIME AXETIL]Drug Gbtpmha50-16-4705 ItchingUniversity Hospitals Beachwood Medical Center (20 sources)Clarithromycin; Translations: [CLARITHROMYCIN]Drug Ftyrmxj88-93-5644 ItchingUniversity Hospitals Beachwood [facility] Center (15 sources)Fluconazole; Translations: [FLUCONAZOLE]Drug Dsntcbt75-67-7148 [facility]Bar[facility] (20 sources)gatifloxacin; Translations: [GATIFLOXACIN]Drug Muyqvhk10-92-3116 ItchingUniversity Hospitals Beachwood [facility] Center (20 sources)levoFLOXacin; Translations: [LEVOFLOXACIN]Drug Seoovum39-24-1349 ItchBarney Children's Medical Center (17 sources)LORazepam; Translations: [LORAZEPAM]Drug Kankinr91-61-3553Uthov: See CommentsUniversity Hospitals Beachwood Medical Center (20 sources)metFORMIN; Translations: [METFORMIN]Drug Nowuapl63-61-3474Iwiwc: See [facility] (20 sources)FluconazoleDrug AllergyitchingSaint [facility] Other (20 sources)gatifloxacin; Translations: [Tequin]Drug Xojhmrz09-90-9788FvkvdtqGpi [facility] (20 sources)levoFLOXacin; Translations: [Levaquin]Drug Zcnyion80-14-0426 itches/painSal[facility] Rep[facility] (20 sources)LORazepamDrug Allergymade wired /unable to [facility] [employer] Other (3 sources)metFORMINDrug AllergyheadSelect Medical [facility] Other (2 sources)Clarithromycin; Translations: [Biaxin]Drug Nbjxvcl24-89-0950Smm [facility] Repository (1 source)PentamidineDrug AllergySalem Regional Medical Center Repository (2 sources)Percocet Tablets; Translations: [Percocet Tablets]Propensity to adverse reactions to drugnausea and vomitingWooster Community Hospital (2 sources)Vicodin Tablets; Translations: [Vicodin Tablets]Propensity to adverse reactions to drugnausea and vomitingWooster Community Hospital (1 source)ClarithromycinDrug Qprpyzo10-52-9672OwcqvtslnUniversity Hospitals Beachwood [facility] Center Repository (1 source)gatifloxacinDrug Vlwwdld02-17-1870TtpxbrkfxUniversity Hospitals Beachwood Medical Center Repository (1 source)levoFLOXacinDrug Xhlqwni17-92-6468XzmsqheccUniversity Hospitals Beachwood Medical Center Repository (3 sources)Cefuroxime; Translations: [CEFUROXIME]Drug Pwwcckz80-08-5278Aagasiz [facility] Repository (2 sources)ClarithromycinAllergy to gbdetlaft09-89-7805Rofoxgce, ItchingNOMS Healthcare (2 sources)GatifloxacinAllergy to wmaxgywzr63-30-0827XJ intolerance, ItchingNOMS Healthcare (2 sources)LorazepamAllergy to hqelawtgb21-70-5817UwvyrfrOJGE Healthcare Medications Current Medications MedicationDrug Class(es)DatesSig (Normalized)Sig [...] inhalation solution (20 sources)beta2-Adrenergic AgonistStart: 03-19-2025 End: 72-54-2186dxmv 2.5 mg by inhalation four times daily as needed for wheezing Albuterol Sulfate 2.5 mg /3 mL (0.083 %) solution for nebulization Active 2.5 MG INHALATION Four times daily as needed for shortness of breath or wheezing 75 2 March 19, 2025 11:31am Complies with drug therapyStart: 03-26-2024 End: 78-68-0110Rxpwtkohj Sulfate 90 mcg/actuation HFA aerosol inhaler Active 2 INH INHALATION Every 6 hours as needed for shortness of breath or wheezing 8.5 1 March 19, 2025 11:31am Complies with drug therapyStart: 39-67-0228Bpldonaym Sulfate (Proair Hfa) 90 mcg/actuation HFA aerosol inhaler Active INHALATION August 28, 2023 12:00am FreeTextSi inhalations Inhalation q4 hrs prn; Note: Source Status: Continueprn; Provider: Dontrell Aguilar CStart: 08-28-2023 End: 32-24-5430sulx 3 mL by inhalation every six hours as neededAlbuterol Sulfate 2.5 mg /3 mL (0.083 %) solution for nebulization Discontinued 2.5 MG INHALATION Every 6 hours as needed for shortness of breath or wheezing August 28, 2023 12:00am March 19, 2025 11:31am 3 ml as needed Inhalation every 6 hrs; Note: Source Status: Continueprn; Provider: Jacky Mayestart: 08-28-2023 End: 28-59-3483Vkkvkqoho Sulfate (Proair Hfa) 90 mcg/actuation HFA aerosol inhaler Discontinued INHALATION August 28, 2023 12:00am March 26, 2024 1:03pm FreeTextSi inhalations Inhalation q4 hrs prn; Note: Source Status: Continueprn; Provider: Dontrell Aguilar CStart: 40-04-5476Gqswmpzmu Sulfate (2.5 MG/3ML) 0.083% 3 ml as needed Inhalation every 6 hrs prn Nov, Active Start: 99-70-0264Fbohcfaxs Sulfate (2.5 MG/3ML) 0.083% 3 ml as needed Inhalation every 6 hrs prn Nov, ActiveStart: 08-31-6772bztx 2 puff(s) by inhalation every four hours as neededAlbuterol Sulfate HFA 108 (90 Base) MCG/ACT 2 puffs as needed Inhalation every 4 hrs for 30 day(s) Aug, Active Start: 03-82-7354JopBwn HFA 108 (90 Base) MCG/ACT 2 inhalations Inhalation q4 hrs prn prn Oct, Activeamitriptyline hydrochloride 25 mg oral tablet (1 source)Tricyclic AntidepressantStart: 05-10-2023 End: 04-90-0450hymz 1 tablet by mouth once daily at bedtimeamitriptyline 25 mg Tab 25 mg = 1 tab(s), Oral, Once a day (at bedtime), X 30 day(s), # 30 tab(s), R efills(s) 2, Pharmacy: [facility]/pharmacy #[id number], 166, cm, 05/10/23 14:36:00 EST, Height/Length Dosing, 123.7, kg, 05/10/23 14:36:00 EST, Weight Dosing Start Date: 05/10/23 Stop Date: 08/08/23 Status: OrderedamLODIPine 5 mg oral tablet (1 source)Dihydropyridine Calcium Channel BlockerStart: 24-00-7740rpxz 1 tablet by mouth every twenty-four hoursamLODIPine Besylate 5 MG 1 tablet Orally Once a day for 30 days Jun, Activeatorvastatin 40 mg oral tablet (13 sources)HMG-CoA Reductase InhibitorStart: 96-55-1887rfke 1 tablet by mouth once dailyAtorvastatin 40 mg tablet Active 40 MG PO Daily February 24, 2025 12:00am Complies with drug therapyStart: 09-01-2024 End: 58-92-6747ixad 1 tablet by mouth once dailyAtorvastatin 20 mg tablet Discontinued 20 MG PO Daily September 01, 2024 12:00am November 27, 2024 11:42am azithromycin 500 mg oral tablet (1 source)Macrolide AntimicrobialStart: 91-95-4966yfqe 1 tablet by mouth once dailyAzithromycin (Zithromax) 500 mg tablet Active 500 MG PO Daily 5 5 0 March 19, 2025 12:00am Complies with drug therapybetamethasone 0.5 mg/ml / clotrimazole 10 mg/ml topical cream (20 sources)Azole Antifungal, CorticosteroidStart: 04-10-2019 End: 01-22-2487Fvspdhdzpawy-Betamethasone 1-0.05 % cream Active 1 APPLIC TOPICAL Twice daily as needed for as directed July 16, 2024 11:35am FreeTextSi application Externally Twice a day; Note: Source Status: Takingprn; Refills: 3; Qty: 135 gm; Provider: Dontrell Reeder Complies with drug therapyCentrum (1 source)Start: 96-68-1058Edjbrqx Oral, Daily, Refill(s) 0 Start Date: 02/22/11 Status: Orderedcholecalciferol 0.05 mg oral tablet (20 sources)Vitamin DStart: 08-28-2023 End: 10-51-5796bhfy 1 tablet by mouth once dailyCholecalciferol (Vitamin D3) 50 mcg (2,000 unit) tablet Active 2000 UNIT PO Daily August 28, 2023 10:48am FreeTextSi tablet Orally Once a day; Note: Source Status: Taking; Provider: Dontrell Reeder Complies with drug therapyStart: 28-56-3359cate 1 tablet by mouth every twenty-four hoursVitamin D3 50 MCG (2000 UT) 1 tablet Orally Once a day Feb, ActiveStart: 27-31-7232Xjzxgxq D3 125 MCG (5000 UT) as directed Orally once weekly Mar, ActiveStart: 56-25-8325jbdz 25 ug by mouth once dailyVitamin D 25 MCG (1000 UT) 5000 units Orally Once a day Dec, Active Start: 27-53-6315svjvpihccjots 10 mg oral tablet (3 sources)Sodium-Glucose Cotransporter 2 InhibitorStart: 47-50-4485nshi 1 tablet by mouth once dailyDapagliflozin Propanediol (Farxiga) 10 mg tablet Active 10 MG PO Daily February 24, 2025 12:00am Complies with drug uepogfr96 hr dilTIAZem hydrochloride 240 mg extended release oral capsule (20 sources)Calcium Channel BlockerStart: 46-85-8556nfsz 1 mg by mouth every twenty-four hoursDiltiazem Hcl (Cartia Xt) 240 mg capsule,extended release 24hr Active MG PO February 24, 2025 12:00am Complies with drug therapyStart: 09-08-2024 End: 70-70-5248huno 1 capsule by mouth once dailyDiltiazem Hcl 240 mg capsule,extended release 24hr Discontinued 240 MG PO Daily September 08, 2024 10: 07am November 27, 2024 11:43amStart: 09-01-2024 End: 80-66-4234eusp 1 capsule by mouth every twenty-four hoursDiltiazem Hcl 240 mg capsule,extended release 24hr Discontinued MG PO September 01, 2024 12:00am September 08, 2024 10:07amStart: 09-01-2024 End: 82-69-8961aatn 1 capsule by mouth every twenty-four hoursDiltiazem Hcl 240 mg capsule,extended release 24hr Discontinued MG PO September 01, 2024 12:00am September 08, 2024 10:07amdoxycycline hyclate 100 mg oral capsule (4 sources)Tetracycline-class Drugtake 1 capsule by mouth every twelve hours Doxycycline Hyclate 100 MG 1 capsule Orally every 12 hrs for 10 day(s) Active estrogens, conjugated (half-way) 0.45 mg oral tablet (1 source)EstrogenStart: 63-21-9426mwcc 1 tablet by mouth once dailyPremarin 0.45 mg Tab 0.45 mg = 1 tab(s), Oral, Daily, tab(s), Refills(s) 0 Start Date: 02/22/11 Status: Orderedfluticasone propionate 0.05 mg/actuat metered dose nasal spray (20 sources)CorticosteroidStart: 63-00-8798ekig 2 spray(s) nasal route in the morningfluticasone (Flonase) 50 MCG/ACT nasal spray Administer 2 sprays into each nostril in the morning. 08/14/2022 ActiveStart: 15-05-2459yegr 1 spray(s) nasal route once dailyFluticasone Propionate 50 MCG/ACT 1 spray in each nostril Nasally Once a day Apr, ActiveStart: 03-11-5118hwxb 1 spray(s) nasal route once dailyFluticasone Propionate 50 MCG/ACT 1 spray in each nostril Nasally Once a day Apr, ActiveStart: 19-14-6723Nilxvwzdnus Propion-Salmeterol (20 sources)Corticosteroid, beta2-Adrenergic AgonistStart: 17-39-5000Yyqmshemhgp Propion-Salmeterol (Advair Diskus) 250-50 mcg/dose blister with device Active 1 INH INHALATION Q12H 3 90 3 December 18, 2024 8:30am Complies with drug therapy Start: 70-71-3448Ldghjsfwcfv Propion-Salmeterol (Advair Diskus) 250-50 mcg/dose blister with device Active 1 INH INHALATION Q12H 3 90 December 18, 2024 8:30am Complies with drug therapyStart: 10-29-2023 End: 36-13-4892Pxjdnsrhkzm Propion-Salmeterol (Advair Diskus) 250-50 mcg/dose blister with device Discontinued 1 INH INHALATION Q12H 3 90 3 October 29, 2023 1:18pm December 18, 2024 8:30amStart: 10-29-2023 End: 18-58-8348Rhaqsbdpwai Propion-Salmeterol (Advair Diskus) 250-50 mcg/dose blister with device Discontinued 1 INH INHALATION Q12H 3 October 29, 2023 1:18pm December 18, 2024 8:30amStart: 94-35-0784Bdssaxuliiq Propion-Salmeterol (Advair Diskus) 250-50 mcg/dose blister with device Active 1 INH INHALATION Q12H October 29, 2023 1:18pm Complies with drug therapyStart: 98-52-2887Rekfr: 21-85-0855Ylllnrnofhg Propion-Salmeterol (Advair Diskus) 250-50 mcg/dose blister with device Active 1 INH INHALATION Q12H October 29, 2023 12:18pmStart: 78-91-3237Sweklupuixs Propion-Salmeterol (Advair Diskus) 250-50 mcg/dose blister with device Active 1 INH INHALATION Q12H October 29, 2023 1:18pmStart: 09-14-2017 End: 20-55-0502Saqwjinihya Propion-Salmeterol (Advair Diskus) 250-50 mcg/dose Blister With Device Discontinued 1 INH INHALATION Q12H September 13, 2017 11:00pm October 29, 2023 12:20pmStart: 09-14-2017 End: 48-57-9470Zrkamcqyxcp Propion-Salmeterol (Advair Diskus) 250-50 mcg/dose Blister With Device Discontinued 1 INH INHALATION Q12H September 14, 2017 12:00am October 29, 2023 1:20pmStart: 45-08-4844Seibzwheqoy Propion-Salmeterol (Advair Diskus) 250-50 mcg/dose Blister With Device Active 1 INH INHALATION Q12H September 14, 2017 12:00amStart: 39-54-2476rjsz 1 puff(s) by inhalation twice daily Advair 250 mcg-50 mcg Powder 1 puff(s), Inhalation, BID, EA, Refill(s) 0 Start Date: 02/22/11 Status: OrderedStart: 14-50-9098lsuafvjhsch/salmeterol(ADVAIR DISKUS 250 MCG-50 MCG/DOSE FOR INHALATION) Indications: [...] 40 mg oral tablet (3 sources)Loop DiureticStart: 22-48-9687pgie 1 tablet by mouth once daily Furosemide 40 mg tablet Active 40 MG PO Daily February 24, 2025 12:00am Complies with drug therapylevothyroxine sodium 0.175 mg oral tablet (20 sources)l-ThyroxineStart: 03-07-2857ofsl 1 tablet by mouth once daily in the morningLevothyroxine 175 mcg tablet Active 175 MCG PO Daily 90 0 March 02, 2025 12:00am take first thing in the morning on an empty stomach, do not eat or drink for 45 minutes after taking Complies withdrug therapyStart: 11-27-2024 End: 44-98-2720otpd 1 tablet by mouth once daily in the morningLevothyroxine 200 mcg tablet Discontinued 200 MCG PO Daily 90 90 November 27, 2024 12:00am March 02, 2025 12:14pm take first thing in the morning on an empty stomach, do not eat or drink for 45 min after takingStart: 08-18-2024 End: 32-46-4078llsu 2 tablets by mouth once daily in the morningLevothyroxine 100 mcg tablet Discontinued 200 MCG PO Daily 180 3 August 18, 2024 12:00am November 27, 2024 12:21pm take first thing in the morning on an empty stomach, do not eat or drink for 30-45 min after takingStart: 08-18-2024 End: 97-12-4047Azpxeqbiynigo (Synthroid) 25 mcg tablet Discontinued 25 MCG PO Daily 90 0 August 18, 2024 12:00am September 08, 2024 10:58am take first thing in the morning on an empty stomach, do not eat or drink anything for 30-45 min after taking. Take in addition to 200 MCG (2- 100 MCG tablets) daily for a total of 225 MCG dailyStart: 08-28-2023 End: 66-59-1291ijba 1 tablet by mouth once daily in the morningLevothyroxine (Synthroid) 200 mcg tablet Discontinued 200 MCG PO Daily 90 1 August 28, 2023 11:47amApril 2023 12:49pm take on an empty stomach first thing in the morning do not eat or drink for 30-45 min after takingStart: 90-67-1455Lvutunyfv 200 mcg (0.2 mg) Tab Refills(s) 0 Start Date: 05/10/23 Status: OrderedStart: 05-36-6982yyklezgsxsiew (SYNTHROID) 200 mcg tablet Take one tablet daily. 90 tablet 1 10/13/2021 ActiveStart: 07-22-2021 End: 41-17-2104djlm 2 tablets by mouth once dailylevothyroxine (SYNTHROID) 112 mcg tablet Take 2 tablets by mouth once daily. 180 tablet 3 07/22/2021 10/13/2021 Discontinued (Course of therapy completed)Start: 63-94-7571rfby 1 tablet by mouth in the morningSynthroid 175 MCG 1 tablet in the morning on an empty stomach Orally alternating with 200 MCG for 90 days PT REQUESTING MYLAN BRAND Oct, ActiveStart: 09-14-2017 End: 33-29-3992zygi 1 tablet by mouth once dailyLevothyroxine (Synthroid) [...] mg/actuat metered dose nasal spray (20 sources)CorticosteroidStart: 53-46-4289Nzxoy: 17-07-3762Kdhsyu 0.1 % 1 application Externally Once a day for 90 days prn Mar, ActiveStart: 73-01-3333Uwoxblzure (Elocon) 0.1 % Cream Active 1 APPLIC TOPICAL Daily as needed for Rash September 14, 2017 12:00am Complies with drug therapyStart: 09-14-2017 End: 03-29-9874Gpmasdvymo (Nasonex) 50 mcg/actuation spray,non-aerosol Active 2 SPRAY INTRANASAL Daily as needed for allergic symptoms July 16, 2024 11:35am Complies with drug therapyStart: 39-38-7850Umxjmxe Nasal, Daily, Refill(s) 0 Start Date: 02/22/11 Status: OrderedStart: 57-33-2466twtfpjsnnq furoate(NASONEX 50 MCG/ACTUATION SPRAY) [place] twice in each nostril once daily. 0 06/26/2008 Activemometasone (Elocon) 0.1 % cream Elocon ActiveComment on above:[place] twice in each nostril once daily.ProAir HFA 108 (90 Base) MCG/ACT (20 sources)Start: 44-42-3731PogLkx HFA 108 (90 Base) MCG/ACT 2 inhalations Inhalation q4 hrs prn prn Oct, Activespironolactone 25 mg oral tablet (3 sources)Aldosterone AntagonistStart: 96-95-5855mgec 0.5 tablet by mouth in the morningSpironolactone 25 mg tablet Active 25 MG PO .COMPLEX February 24, 2025 12:00am 25 mg orally TAKE 1/2 TABLET BY MOUTH IN THE MORNING; Complies with drug therapytraMADol hydrochloride 50 mg oral tablet (6 sources)Opioid AgonistStart: 02-24-2025 End: 41-85-5147krrc 1 tablet by mouth twice daily as needed for painTramadol 50 mg tablet Active 50 MG PO Twice daily as needed for pain 60 30 0 March 02, 2025 12:22pm Chronic pain Other chronic pain Complies with drug therapyStart: 78-62-5516tuixvnyh Refills(s) 0 Start Date: 05/10/23 Status: OrderedvalACYclovir 1000 mg oral tablet (10 sources)Herpesvirus Nucleoside Analog DNA Polymerase Inhibitor, Herpes Simplex Virus Nucleoside Analog DNA Polymerase Inhibitor, Herpes Zoster Virus Nucleoside Analog DNA Polymerase InhibitorStart: 00-19-8308kkza 1 tablet by mouth every eight hoursValtrex 1 GM 1 tablet Orally tid for 7 days Apr, ActiveVitamin D (1 source)Start: 07-66-2246Pvhcjsi D Refills(s) 0 Start Date: 05/10/23 Status: OrderedVitamin D 25 MCG (1000 UT) (13 sources)Start: 01-57-8792xine 25 ug by mouth once dailyVitamin D 25 MCG (1000 UT) 5000 units Orally Once a day Dec, Active Completed/Discontinued Medications MedicationDrug Class(es)DatesSig (Normalized)Sig (Original)amoxicillin 875 mg / clavulanate 125 mg oral tablet (20 sources)Penicillin-class AntibacterialStart: 03-05-2025 End: 22-12-0207njsu 1 tablet by mouth twice daily at mealtimeAmoxicillin-Pot Clavulanate 875-125 mg tablet Discontinued 1 TAB PO Twice daily 20 March 05, 2025 12:00am March 19, 2025 11:10am with foodStart: 10-24-2024 End: 66-33-5175cole 1 tablet by mouth twice daily at mealtimeAmoxicillin-Pot Clavulanate 875-125 mg tablet Discontinued 1 TAB PO Twice daily October 24, 2024 12:00am November 27, 2024 11:42am with foodStart: 01-08-2024 End: 62-42-3325mcyr 1 tablet by mouth twice daily at mealtimeAmoxicillin-Pot Clavulanate 875-125 mg tablet Discontinued 1 TAB PO Twice daily January 08, 2024 12:00am March 26, 2024 12:37pm with foodStart: 26-69-3245mjrm 1 tablet by mouth every twelve hoursAmoxicillin-Pot Clavulanate 875-125 MG 1 tablet Orally every 12 hrs for 10 day(s) Oct, ActiveStart: 11-14-2022 take 1 tablet by mouth twice daily at mealtimeAmoxicillin-Pot Clavulanate 875- 125 MG 1 tablet Orally bid with food Mar, ActiveStart: 85-69-6325jcbu 1 tablet by mouth twice daily at mealtimeAmoxicillin-Pot Clavulanate 875-125 MG 1 tablet Orally two times a day with food for 10 day(s) Oct, ActiveStart: 74-54-8639poin 1 tablet by mouth twice daily at mealtimeAmoxicillin-Pot Clavulanate 875-125 MG 1 tablet Orally bid with food for 10 day(s) Jul, Activeaspirin 81 mg chewable tablet (10 sources)Platelet Aggregation Inhibitor, Nonsteroidal Anti-inflammatory Drug Start: 09-01-2024 End: 93-64-7658atve 1 tablet by mouth once dailyAspirin 81 mg tablet,chewable Discontinued 1 TAB PO Daily September 01, 2024 12:00am November 27, 2024 11:42am cefTRIAXone (20 sources)Cephalosporin AntibacterialStart: 62-57-4571Cmdovxwc 500 mg Aug, 1 gcetirizine hydrochloride 10 mg oral tablet (20 sources)Histamine-1 Receptor AntagonistStart: 05-16-2007 End: 03-41-1350fdvn 1 tablet by mouth once dailyCetirizine (Zyrtec) [...] oral tablet (20 sources)Muscle RelaxantStart: 01-30-2018 End: 45-60-2939ovgs 1 tablet by mouth once daily at bedtimeCyclobenzaprine 10 mg tablet Discontinued 10 MG PO Daily at bedtime 5 0 December 16, 2024 9:14am Octob er 2024 11:44am TAKE 1 TABLET AT BEDTIMEStart: 99-75-7627Nzpxb: 09-14-2017 End: 45-94-2272quoq 1 tablet by mouth three times daily as needed for muscle spasmsCyclobenzaprine 10 mg Tablet Discontinued 10 MG PO Three times daily as needed for Muscle Spasm September 14, 2017 12:00am September 16, 2017 1:16pm empagliflozin 10 mg oral tablet (5 sources)Sodium-Glucose Cotransporter 2 InhibitorStart: 11-27-2024 End: 84-31-4175pxpf 1 tablet by mouth once daily in the morningEmpagliflozin (Jardiance) 10 mg tablet Discontinued 10 MG PO Every morning 3 November 27, 2024 12:00am February 24, 2025 11:08amesomeprazole 40 mg delayed release oral capsule (20 sources)Proton Pump InhibitorStart: 06-26-2008 End: 61-58-5284oubp 1 capsule by mouth once dailyEsomeprazole Magnesium (Nexium) 40 mg Capsule,Delayed Release(Dr/Ec) Discontinued 40 MG PO Daily September 14, 2017 12:00am April 22, 2024 9:16amComment on above:Take one(1) capsule daily.84 hr estradiol 0.69643 mg/hr transdermal system (20 sources)EstrogenStart: 09-14-2017 End: 77-59-3246Bnsmhtvrz (Vivelle-Dot) 0.0375 mg/24 hr Patch Semiweekly Discontinued 1 PATCH TRANSDERML Once 2017 12:00am August 28, 2023 11:12amglimepiride 1 mg oral tablet (20 sources)SulfonylureaStart: 02-22-2023 End: 72-19-4987Gdthmpjgupv 1 mg tablet Discontinued 1 MG PO Daily August 28, 2023 10:09am August 28, 2023 11:12am 1 tablet with breakfast or the first main meal of the day Orally Once a day; Note: Source Status: Start; Refills: 1; Qty: 90 Tablet; Provider: Dontrell Aguilar ( )hydroCHLOROthiazide 25 mg / triamterene 37.5 mg oral capsule (20 sources)Potassium-sparing Diuretic, Thiazide DiureticStart: 09-26-2023 End: 53-85-7621qvxk 1 capsule by mouth once daily in the morningTriamterene- Hydrochlorothiazid 37.5-25 mg capsule Discontinued 1 CAP PO Every morning 30 0 September 12:00am April 11, 2024 1:05pmStart: 30-79-2524cohc 1 capsule by mouth in the morningtriamterene-hydroCHLOROthiazide (Dyazide) 37.5-25 MG capsule Indications: Asymmetric SNHL (sensorineural hearing loss) Take 1 capsule by mouth in the morning. 30 capsule 1 09/24/2023 Activehydrocortisone 10 mg/ml / neomycin 3.5 mg/ml / polymyxin b 86239 unt/ml otic solution (12 sources)Aminoglycoside Antibacterial, Polymyxin-class Antibacterial, CorticosteroidStart: 76-37-9709Upkmnsyh-Polymyxin-HC 3.5-91892-4 4 drops into affected ear Otic Three times a day for 7 days Jul, Not-TakingKetorolac (20 sources)Nonsteroidal Anti-inflammatory Drug, Cyclooxygenase InhibitorStart: 27-10-0571Znquoed per 15 mg Jul, 2 cclisinopril 10 mg oral tablet (20 sources)Angiotensin Converting Enzyme InhibitorStart: 09-16-2017 End: 17-83-8196zoqx 1 tablet by mouth once dailyLisinopril 10 mg tablet Discontinued 10 MG PO Daily 30 0 September 16, 2017 12:00am August 28, 2023 11 :13amlosartan potassium 50 mg oral tablet (20 sources)Angiotensin 2 Receptor BlockerStart: 11-27-2024 End: 07-57-1009xvfq 1 tablet by mouth once dailyLosartan 50 mg tablet Discontinued 50 MG PO Daily 90 November 27, 2024 12:14pm February 24, 2025 11: 08amStart: 12-05-2023 End: 07-37-7247pxxs 1 tablet by mouth once dailyLosartan 50 mg tablet Discontinued 50 MG PO Daily 90 April 22, 2024 9:14am September 08, 2024 10 :07amStart: 73-48-3649ddtontym Refills(s) 0 Start Date: 05/10/23 Status: Ordered Start: 02-22-2023 End: 80-09-3802izxs 1 tablet by mouth once dailyLosartan 50 mg tablet Discontinued 50 MG PO Daily August 28, 2023 12:00am August 28, 2023 11:13am Fr eeTextSi tablet Orally Once a day; Note: Source Status: Taking; Refills: 3; Qty: 90 Tablet; Provider: Kg Queentart: 69-64-5697shsh 1 tablet by mouth every twenty-four hoursLosartan Potassium 25 MG 1 tablet Orally Once a day for 30 days Oct, Activemeloxicam 15 mg oral tablet (20 sources)Nonsteroidal Anti-inflammatory DrugStart: 02-24-2025 End: 42-28-9426crrc 1 tablet by mouth once dailyMeloxicam 15 mg tablet Discontinued 15 MG PO Daily February 24, 2025 11:18am February 24, 2025 11:32am Start: 01-26-2025 End: 53-83-9414xdyl 1 tablet by mouth once dailyMeloxicam 15 mg tablet Discontinued 0 .ROUTE .COMPLEX 90 January 26, 2025 8:53am February 24, 2025 11:19am TAKE 1 TABLET BY MOUTH DAILYStart: 06-13-2024 End: 92-24-5326otxa 1 tablet by mouth once dailyMeloxicam 15 mg tablet Discontinued 15 MG PO Daily June 13, 2024 1:22pm January 26, 2025 8:54am Start: 01-14-2024 End: 00-24-9613Yhqewckxz 15 mg tablet Discontinued 0 .ROUTE .COMPLEX 90 3 January 14, 2024 10:16am June 13, 2024 1:23pm TAKE 1 TABLET DAILYStart: 01-14-2024 End: 80-28-2509Dqszhcrse 15 mg tablet Discontinued 0 .ROUTE .COMPLEX 90 January 14, 2024 10:16am June 13, 2024 1:23pm TAKE 1 TABLET DAILYStart: 01-14-2024 End: 60-35-2760Nbqqffnqu 15 mg tablet Discontinued 0 .ROUTE .COMPLEX 90 January 14, 2024 9:16am June 13, 2024 12:23pm TAKE 1 TABLET DAILYStart: 39-50-4097Fkrzsrksc 15 mg tablet Active 0 .ROUTE .COMPLEX 90 January 14, 2024 9:16am TAKE 1 TABLET DAILYStart: 22-26-7672Fwhkiugai Active 0 .ROUTE .COMPLEX 90 January 14, 2024 9:16am TAKE 1 TABLET DAILYStart: 55-65-7033Jdyfqwhvx Active 0 .ROUTE .COMPLEX 90 January 14, 2024 10:16am TAKE 1 TABLET DAILYStart: 07-01-2021 End: 22-42-7634hhjl 1 tablet by mouth once dailyMeloxicam 15 mg tablet Discontinued 15 MG PO Daily August 28, 2023 12:00am January 14, 2024 10:17am TAKE 1 TABLET DAILY; Refills: 0; Provider: Dontrell Aguilar C24 hr metFORMIN hydrochloride 500 mg extended release oral tablet (20 sources)BiguanideStart: 06-13-2024 End: 58-57-9098Opgzhrhuv 500 mg tablet extended release 24 hr Discontinued 1000 MG PO .[facility] June 13, 2024 1:22pm February 24, 2025 11:09am 1,000 mg orally BID as normal;Start: 01-14-2024 End: 46-33-1383Uizbjzxej 500 mg tablet extended release 24 hr Discontinued 0 .ROUTE .[place] [id number] April 22, 2024 9:13am June 13, 2024 1:23pm TAKE 2 TABLETS TWICE A DAY WITH MEALSStart: 01-14-2024 End: 97-78-5838Jmtllilfb 500 mg tablet extended release 24 hr Discontinued 0 .ROUTE [address] [address] January 130:41am April 22, 2024 9:14am TAKE 2 TABLETS TWICE A DAY WITH MEALSStart: 01-14-2024 End: 99-06-7160Lyxrwtjyi 500 mg tablet extended release 24 hr Discontinued 0 .ROUTE [address] [address] January 1349:41am April 22, 2024 8:14am TAKE 2 TABLETS TWICE A DAY WITH MEALSStart: 39-48-8695Qocinqkni Active 0 .ROUTE [address] [address] January 14, 2024 9:41am TAKE 2 TABLETS TWICE A DAY WITH MEALS Start: 80-21-8168Hfnkrjtkr Active 0 .ROUTE [address] [address] January 14, 2024 10:41am TAKE 2 TABLETS TWICE A DAY WITH MEALSStart: 01-14-2024 End: 51-58-2397mkus 2 tablets by mouth twice daily at mealtimeMetformin 500 mg tablet extended release 24 hr Discontinued 500 MG PO .[facility] January 14, 2024 10:36am January 14, 2024 10:42am 500 mg orally take 2 (500 mg) tabs twice a day with meals;Start: 10-29-2023 End: 33-16-0212dwgh 1 tablet by mouth once dailyMetformin 500 mg tablet extended release 24 hr Discontinued 500 MG PO Daily October 29, 2023 2:48pm January 14, 2024 10:37amStart: 66-20-1596juwvtdqwc Refills(s) 0 Start Date: 05/10/23 Status: OrderedStart: 45-87-1185mvli 2 tablets by mouth twice daily at mealtime metFORMIN HCl ER 500 MG 2 tablets Orally bid with meals for 90 days Oct, ActiveStart: 43-30-0311wrtg 2 tablets by mouth twice dailymetFORMIN ER (GLUCOPHAGE XR) 500 mg 24 hr tablet Take 2 tablets by mouth twice daily. 360 tablet 3 07/22/2021 ActiveStart: 24-72-3315cgiGWCRZD HCl 500 MG 1 tablet with largest meal of the day Orally Once a day Oct, ActiveStart: 09-14-2017 End: 38-50-3053Kfrtrsobo 500 mg Tablet Extended Release 24 Hr Discontinued 500 MG PO Every 48 hours September 14, 2017 12:00am October 29, 2023 2:48pmComment on above:Take 2 tablets by mouth twice daily.montelukast 10 mg oral tablet (20 sources)Leukotriene Receptor AntagonistStart: 02-22-2011 End: 51-14-2523knrz 1 tablet by mouth once daily at bedtimeMontelukast (Singulair) 10 mg Tablet Discontinued 10 MG PO Daily at bedtime September 14, 2017 12:00am April 22, 2024 9:15amComment on above:Take 10 mg by mouth daily at bedtime.Dlcwdfbd-Jgb-Hmfmdgc Gluconate (Centrum) 9 mg iron/15 mL Liquid (20 sources)Start: 09-14-2017 End: 90-67-5562jnhk 2 tablets by mouth once npaovNjwhkyxu-Hor-Epbafbb Gluconate (Centrum) 9 mg iron/15 mL Liquid Discontinued 2 TAB PO Daily September 13, 2017 11:00pm August 28, 2023 10:13amStart: 09-14-2017 End: 34-25-8749zmpd 2 tablets by mouth once yxataRlyrfuvg-Ylc-Qvdtmgo Gluconate (Centrum) 9 mg iron/15 mL Liquid Discontinued 2 TAB PO Daily September 14, 2017 12:00am August 28, 2023 11:13amMULTIVIT-MINERALS/FERROUS GLUC (CENTRAM-CARE ORAL) (5 sources)MULTIVIT-MINERALS/FERROUS GLUC (CENTRAM-CARE ORAL) Take by mouth twice daily. 0 ActiveComment on above:Take by mouth twice daily.predniSONE 20 mg oral tablet (20 sources)Start: 09-01-2024 End: 99-32-0556vtvx 3 tablets by mouth once daily, then [...] with food or milk orally;Start: 05-16-2024 End: 84-68-2770tpku 3 tablets by mouth once daily at [...] x3 days orally WITH FOOD OR MILK;Start: 84-28-3873duqtptSIXQ 10 MG 4 tablets daily x 3 days, 2 tablets daily x 3 days, 1.5 tablet daily x 7 days, 1 tablet daily x 7 days, 0.5 tablets daily x 7 days Orally Once a day for 27 days Aug, ActiveStart: 99-90-2198zncplsHQPU 10 MG 4 tabs x 7 days, 3 tabs x 7 days, 2 tabs x 7 days, 1 tab x 7 days then stop OrallyOnce a day for 28 days Nov, Not-TakingStart: 68-72-4894lqfcyiNLXW 20 MG take 3 tablets Orally x3 days, then 2 tabs x3 days then 1 tab a day x3 days then take 1/2 tablet x 4 days with food or milk for 13 days Oct, ActiveStart: 17-55-4668dglqgiAXNN 10 MG 4 tablets daily for 3 days, 2 tablets daily for 3 days, 1 tablet daily for 7 days Orally Once a day for 13 days Aug, ActiveStart: 39-91-8931rvrh 1 tablet by mouth every twenty-four hours predniSONE 10 MG 1 tablet Orally Once a day Feb, ActivepredniSONE 5 MG 1/2 tablet Orally weaning down as directed Awwhiu46 hr scopolamine 0.0139 mg/hr transdermal system (14 sources)AnticholinergicStart: 90-83-3737Rtdlirhhlfu 1 MG/3DAYS 1 patch to skin behind the ear Transdermal change q72 hours Jun, Not-TakingTB Test (20 sources)Start: 02-02-5312XV Test Jan, 0.1 mL24 hr venlafaxine 37.5 mg extended release oral capsule (3 sources)Serotonin and Norepinephrine Reuptake InhibitorStart: 10-07-2021 venlafaxine ER (EFFEXOR XR) 37.5 mg 24 hr capsule take one a day, if tolerated after two weeks increase to two 60 capsule 3 10/07/2021 ActiveComment on above: take one a day, if tolerated after two weeks increase to twoVitamin D [place] (Simple-Fill) (3 sources)Start: 03-30-2016 End: 53-38-8217egtx 1 capsule by mouth once daily at mealtimeVitamin D [place] (Simple-Fill) Take 1 capsule by mouth daily with food. 0 03/30/2016 10/13/2021 Discontinued (Course of therapy completed)Start: 16-68-3533nlrz 1 capsule by mouth once daily at mealtimeVitamin D [place] (Simple-Fill) Take 1 capsule by mouth daily with food. 0 03/30/2016 ActiveComment on above: Take 1 capsule by mouth daily with food. Problems Active Problems Problem ClassificationProblemDateDocumented DateEpisodic/ChronicAbdominal pain (20 sources)Abdominal pain; Translations: [Unspecified abdominal pain]Onset: 03-15-2021 Resolved: 52-91-6097GddtcoyeCebkrch disorders (20 sources)Generalized anxiety disorder; Translations: [Generalized anxiety disorder]Onset: 93-22-0870FqxghcmCtkrdu (20 sources)Asthma; Translations: [Unspecified asthma, uncomplicated]Onset: 02-21-2021 Resolved: 60-52-3006FbswhbvAanpynj obstructive pulmonary disease and bronchiectasis (8 sources)Pulmonary emphysema; Translations: [Emphysema, unspecified]12-08-2024 ChronicCongestive heart failure; nonhypertensive (10 sources)Chronic diastolic (congestive) heart failure; Translations: [Congestive heart failure]Onset: 35-14-1779QtacwizXxtxnoeu mellitus with complications (5 sources)Type 2 diabetes mellitus; Translations: [Type 2 diabetes mellitus with hyperglycemia]Onset: 40-44-0116GsngfrgSnmsefwu mellitus without complication (20 sources)Type 2 diabetes mellitus without complication; Translations: [Type 2 diabetes mellitus without complications]Onset: 03-15-2021 Resolved: 50-59-8195PzzbfkjDiofzicm mellitus without complication (20 sources)Hyperglycemia; Translations: [Hyperglycemia, unspecified]Episodic Digestive congenital anomalies (20 sources)Disorder of tongue; 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]ChronicDisorders of lipid metabolism (20 sources)Hyperlipidemia; Translations: [Hyperlipidemia, unspecified]Onset: 07-04-2021 Resolved: 98-93-6215WrplahrF Codes: Natural/environment (2 sources)Bitten by cat, initial encounterEpisodicEsophageal disorders (20 sources)Gastroesophageal reflux disease; Translations: [Gastro-esophageal reflux disease without esophagitis]Onset: 02-21-2021 Resolved: 59-97-0267TxiiyyxQpoptxmrt hypertension (20 sources)Hypertensive disorder; Translations: [Essential (primary) hypertension]Onset: 366602-15-5486AhqmyfcDbkxq of unknown origin (1 source)Fever, unspecifiedEpisodicGenitourinary symptoms and ill-defined conditions (4 sources)Nocturia; Translations: [NOCTURIA]Onset: 91-76-5765OuonecejAzcyhadq; including migraine (20 sources)Headache; Translations: [Headache]EpisodicHeadache; including migraine (4 sources)Headache; including migraine; Translations: [HEADACHE UNSPECIFIED] Onset: 24-99-9487Qyygdps and fatigue (7 sources)Chronic fatigue syndrome; Translations: [Chronic fatigue, unspecified]Onset: 963803-73-6656LkmpzabVbhrqvv and fatigue (20 sources)Other fatigue; Translations: [Fatigue]EpisodicMiscellaneous mental health disorders (7 sources)Binge eating disorder; Translations: [Binge eating disorder]Onset: 458737-87-5920KjavgjvFfkt disorders (20 sources)Depressive disorder; Translations: [Major depressive disorder, single episode, unspecified]Onset: 10-20-2021 Resolved: 36-58-5843PfjdbusPwnzaw and vomiting (20 sources)Nausea; Translations: [Nausea]EpisodicNoninfectious gastroenteritis (1 source)Noninfective gastroenteritis and colitis, unspecifiedEpisodic Nonspecific chest pain (2 sources)Other chest pain; Translations: [Other chest pain]Onset: 01-05-2025 EpisodicNutritional deficiencies (20 sources)Vitamin D deficiency; Translations: [Vitamin D deficiency, unspecified]Onset: 79-10-1678PgxhiecKsqwgzuetrf deficiencies (1 source)Dietary selenium deficiency; Translations: [DIETARY SELENIUM DEFICIENCY]Onset: 41-86-0491IvllwbykGzsilrdrppgvsp (3 sources)Osteoarthritis; Translations: [Unspecified osteoarthritis, unspecified site]Onset: 684533-32-6681OejzgnaGtyqs aftercare (20 sources)Long-term current use of systemic steroid; Translations: [group home (current) use of systemic steroids]EpisodicOther aftercare (9 sources)Other chcf (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; Translations: [Long-term (current) use of other medications]Onset: 03-15-2021 Resolved: 76-79-5467NjjwvgqxYqhli aftercare (1 source)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; Translations: [DETENTION USE ORAL HYPOGLYCEMIC DX]Onset: 54-51-0721YdryafyvNyzpj circulatory disease (20 sources)Elevated blood-pressure reading, without diagnosis of hypertension; Translations: [Elevated blood pressure reading without diagnosis of hypertension]Onset: 10-20-2021 Resolved: 13-57-8992HlvdsdjwUplmv connective tissue disease (20 sources)Cramp; Translations: [Cramp and spasm]EpisodicOther connective tissue disease (1 source)Myalgia, unspecified siteEpisodicOther ear and sense organ disorders (7 sources)Sensorineural hearing loss, bilateral; Translations: [Sensorineural hearing loss, bilateral]Onset: 285547-67-8140VzuwsvaFwtrg ear and sense organ disorders (20 sources)Asymmetrical sensorineural hearing loss; Translations: [Sensorineural hearing loss, bilateral]Onset: 929906-72-0370FkbnndnVjitm ear and sense organ disorders (11 sources)Sensorineural hearing loss, bilateral; Translations: [Sensorineural hearing loss, asymmetrical]03-39-5270DnmqyceQpeyk ear and sense organ disorders (2 sources)Mixed conductive AND sensorineural hearing loss; Translations: [Mixed conductive and sensorineural hearing loss, unilateral, right ear with restricted hearing on the contralateral side]Onset: 639788-15-4299Uaxjzhd Other ear and sense organ disorders (1 source)Otalgia, right earEpisodicOther ear and sense organ disorders (1 source)Unspecified acute noninfective otitis externa, right earEpisodicOther ear and sense organ disorders (20 sources)Tinnitus; Translations: [Tinnitus, unspecified ear]09-26-2023 EpisodicComment on above:right sided tinnitusOther ear and sense organ disorders (5 sources)Tinnitus, unspecified ear; Translations: [Tinnitus, unspecified] 37-82-1750UfwuiklxBvfvr gastrointestinal disorders (20 sources)Diarrhea; Translations: [Diarrhea, unspecified]79-09-6290Rntnnvxl Other gastrointestinal disorders (12 sources)Burping; Translations: [Eructation]09-46-4658TkjqhqmjRzxoq gastrointestinal disorders (5 sources)Eructation; Translations: [Flatulence, eructation, and gas pain] 09-74-7114HspymbueZjnwh liver diseases (20 sources)Steatosis of liver; Translations: [Fatty (change of) liver, not elsewhere classified]ChronicOther liver diseases (20 sources)Inflammatory disease of liver; Translations: [Inflammatory liver disease, unspecified]Onset: 480790-47-9655VafbjyoPheaw lower respiratory disease (20 sources)Cough; Translations: [Cough]EpisodicOther lower respiratory disease (6 sources)Wheezing; Translations: [Wheezing]Onset: 10-20-2021 Resolved: 56-35-8085ClveemlbVrfzz lower respiratory disease (3 sources)Shortness of breath; Translations: [SHORTNESS OF BREATH]Onset: 29-92-2753XnicodqsKicqz lower respiratory disease (12 sources)Wheezing; Translations: [Wheezing]17-70-2305PyksgvhdLhkvd lower respiratory disease (12 sources)Cough; Translations: [Acute cough]25-33-0607FfpiamimVzpjd nervous system disorders (20 sources)Chronic pain; Translations: [Other chronic pain]34-10-0810Qvitxso Other nervous system disorders (20 sources)Other chronic pain; Translations: [Other chronic pain]ChronicOther nervous system disorders (20 sources)Paresthesia of hand ; Translations: [Paresthesia of skin]Episodic Other nervous system disorders (20 sources)Disorder of taste; Translations: [Unspecified disturbances of smell and taste]EpisodicOther non-traumatic joint disorders (4 sources)Pain in unspecified joint; Translations: [Polyarthralgia M25.50] Onset: 03-15-2021 Resolved: 49-92-9169BruwmmhcGahhi non-traumatic joint disorders (16 sources)Pain in unspecified hip; Translations: [Pain in joint, pelvic region and thigh]EpisodicOther non-traumatic joint disorders (20 sources)Pain in left shoulder; Translations: [Left shoulder pain]Episodic Other non-traumatic joint disorders (20 sources)Hip pain; Translations: [Pain in unspecified hip]21-20-8256Lzkcnywi Other nutritional; endocrine; and metabolic disorders (20 sources)Body mass index 40+ - severely obese; Translations: [Body mass index (BMI) 50.0-59.9, adult]Onset: 697128-20-3576OeeprwdZykui nutritional; endocrine; and metabolic disorders (7 sources)Metabolic syndrome X; Translations: [Metabolic syndrome]Onset: 596136-27-3530UbrrhyoYpnpc nutritional; endocrine; and metabolic disorders (20 sources)Hypercalcemia; Translations: [Hypercalcemia]ChronicOther nutritional; endocrine; and metabolic disorders (20 sources)Obesity; Translations: [Obesity, unspecified]ChronicOther nutritional; endocrine; and metabolic disorders (2 sources)Abnormal weight lossOnset: 10-20-2021 Resolved: 75-32-3414AomaqxhyDarou nutritional; endocrine; and metabolic disorders (2 sources)Abnormal weight gainEpisodicOther screening for suspected conditions (not mental disorders or infectious disease) (20 sources)CT of chest abnormal; Translations: [Abnormal findings on diagnostic imaging of other specified body structures]82-52-5884UkspbvnLyuggdy on above:CT [facility] screening for suspected conditions (not mental disorders or infectious disease) (20 sources)Liver function tests abnormal; Translations: [Other specified abnormal findings of blood chemistry]Onset: 45-47-4318JdggcjbxMhacg upper respiratory disease (20 sources)Seasonal allergy; Translations: [Other seasonal allergic rhinitis] Onset: 691157-26-8023SbsiwvmLbqnk upper respiratory disease (13 sources)Other seasonal allergic rhinitis; Translations: [Allergic rhinitis, cause unspecified]Onset: 02-21-2021 Resolved: 45-55-9177KttuqrbZvoxu upper respiratory disease (2 sources)Allergic rhinitis due to animal hair and dander; Translations: [Allergic rhinitis due to animal (cat) (dog) hair and dander]Onset: 10-04-2022 35-10-5506KilnbifHdauj upper respiratory disease (1 source)Nasal congestion; Translations: [NASAL CONGESTION]Onset: 09-14-2022 EpisodicOther upper respiratory disease (4 sources)Nasal sinus problem; Translations: [Other specified disorders of nose and nasal sinuses]41-03-5203CfavycpfBvtvx upper respiratory infections (12 sources)Acute sinusitis, unspecified; Translations: [Acute sinusitis] EpisodicOtitis media and related conditions (20 sources)Dysfunction of eustachian tube; Translations: [Other specified disorders of Eustachian tube, unspecified ear]Onset: 26-73-3797YalbybnqJexmabbi codes; unclassified (20 sources)Insomnia; Translations: [Insomnia, unspecified]EpisodicResidual codes; unclassified (2 sources)Pain, unspecified; Translations: [PAIN UNSPECIFIED]Onset: 08-23-2022 EpisodicResidual codes; unclassified (1 source)Acquired absence of other specified parts of digestive tract; Translations: [ACQ ABSENCE OTH PART DIGESTV TRACT]Onset: 07-36-1441Pusimtha Residual codes; unclassified (1 source)Acquired absence of both cervix and uterus; Translations: [ACQUIRED ABSENCE BOTH CERVIX AND UTERUS]Onset: 89-71-3772WiqjdqugLqcakvdujlw; intervertebral disc disorders; other back problems (20 sources)Inflammation of sacroiliac joint; Translations: [Sacroiliitis, not elsewhere classified]90-44-9869SkoskqvLmctpjfmkty; intervertebral disc disorders; other back problems (20 sources)Neck pain; Translations: [Cervicalgia]Onset: 10-20-2021 Resolved: 14-61-6540TvmxmnvkIygyqiz disorders (20 sources)Acquired hypothyroidism; Translations: [Hypothyroidism, unspecified] Onset: 09-20-2015 Resolved: 06-26-7712OsoreieQalbqfuiuvmd (4 sources)COUGH, UNSPECIFIED; Translations: [COUGH, UNSPECIFIED]Onset: 99-80-1152Pgmphacodwkj (1 source)PERSONAL HISTORY OF COVID-19; Translations: [PERSONAL HISTORY OF COVID-19]Onset: 54-56-8541Vsgkkcchzesa (1 source)CONTACT W/AND (SUSP) EXPOS COVID-19; Translations: [CONTACT W/AND (SUSP) EXPOS COVID-19]Onset: 08-21-2022 Past or Other Problems Problem ClassificationProblemDateDocumented DateEpisodic/ChronicCardiac dysrhythmias (20 sources)Palpitations; Translations: [Palpitations]Onset: 68-40-3537Janajpft Chronic obstructive pulmonary disease and bronchiectasis (1 source)Bronchitis, not specified as acute or chronic; Translations: [Bronchitis J40]Onset: 02-24-2021 Resolved: 90-85-7289ChbuqaafLclax aftercare (20 sources)Long-term current use of drug therapy; Translations: [Other chcf (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]Onset: 949131-00-6762KbminxbyWztrc circulatory disease (20 sources)Elevated blood pressure; Translations: [Elevated blood-pressure reading, without diagnosis of hypertension]Onset: 837309-77-0348Bgqhxqao Other congenital anomalies (2 sources)Porokeratosis; Translations: [Other specified congenital malformations of skin]Onset: 10-04-2022 Resolved: 396068-18-1871DhiqobmPtenz connective tissue disease (20 sources)Fibromyalgia; Translations: [Fibromyalgia]Onset: 09-20-2015 96-80-8170UcxnmxxgFxywu connective tissue disease (1 source)Pain in left handOnset: 05-25-2021 Resolved: 03-80-9357MkdwuknaYgkqm connective tissue disease (1 source)Pain in leg, unspecifiedOnset: 07-04-2021 Resolved: 87-37-4022KctuuxmtVntfk connective tissue disease (1 source)Fibromyalgia; Translations: [Fibromyalgia]Onset: 99-87-3330Qayijpps Other ear and sense organ disorders (20 sources)Tinnitus of vascular origin; Translations: [Pulsatile tinnitus, unspecified ear]Onset: 487980-01-9820AimcfguvOdgpm ear and sense organ disorders (2 sources)Cholesteatoma of attic; Translations: [Cholesteatoma of attic, right ear]Onset: 026283-63-7816JdarelmiVpkhb ear and sense organ disorders (2 sources)Tinnitus of right ear; Translations: [Tinnitus, right ear]Onset: 597886-96-5123YhennuwuVqskm gastrointestinal disorders (12 sources)Diarrhea, unspecified; Translations: [Diarrhea]Onset: 07-30-2024 EpisodicOther nervous system disorders (2 sources)Abnormal taste in mouth; Translations: [Parageusia]Onset: 10-04-2022 27-63-6159LvfvgjqxYutiz non-traumatic joint disorders (20 sources)Multiple joint pain; Translations: [Pain in unspecified joint]Onset: 679685-99-6165XyjrzhefEnhdr upper respiratory disease (2 sources)Allergic rhinitis due to pollen; Translations: [Allergic rhinitis due to pollen]Onset: 10-04-2022 Resolved: 452787-92-0276FkjhyqgLuhhaabgnaes (1 source)Lumbar pain M54.50Onset: 07-04-2021 Resolved: 21-37-2075Ybpbhcfwtsll (1 source)Cough R05.9Onset: 10-20-2021 Resolved: 18-90-5509Vedwudzqdbvn (1 source)COUGH, UNSPECIFIED; Translations: [COUGH, UNSPECIFIED]Onset: 51-57-4608Mdmuvyn tract infections (20 sources)Urinary tract infectious disease; Translations: [Urinary tract infection, site not specified]Onset: 292502-59-9926Zwteamoe Results Test NameValueInterpretationReference RangeFacilityBasophils Auto (Bld) [#/Vol] Ordered By: Jeff Jon on 71-58-4653Hzlnosexi (Bld) [#/Vol]0.1 10 3/uL0.0-0.1 [facility] CenterBasophils/100 WBC Auto (Bld)Ordered By: Jeff Jon on 63-67-4561Oomfuggup/100 WBC (Bld)1.0 %0.2-2.0[facility] CenterCholesterol in LDL Calc [Mass/Vol]Ordered By: Jeff Jon on 40-78-4354Pohayfjgkib in LDL [Mass/Vol]53.0 mg/dLUniversity Hospitals Beachwood Medical CenterComment on above:<100 mg/dl AEXUFVV856-749 mg/dl NEAR OR ABOVE JKHLPJP687- 159 mg/dl BORDERLINE QGEL629-938 mg/dl HIGH>190 mg/dl VERY HIGHCholesterol in VLDL Calc [Mass/Vol]Ordered By: Jeff Jon on 64-70-7463Qcgbvvwpene in VLDL [Mass/Vol]10.8 mg/dLUniversity Hospitals Beachwood Medical CenterEosinophils/100 WBC Auto (Bld)Ordered By: Jeff Jon on 38-30-0675Meutnuesofn/100 WBC (Bld)4.8 %0.9-7.0 [facility] CenterErythrocyte distribution width Auto (RBC) [Ratio]Ordered By: Jeff Jon on 42-33-5743Rqvkazgiyrq distribution width (RBC) [Ratio]11.9 %11.0-15.0[facility] CenterGlobulin Calc (S) [Mass/Vol]Ordered By: Jeff Jon on 60-98-0632Fzdanmhc (S) [Mass/Vol]3.8 g/dL [facility] CenterGlomerular filtration rate (GFR) estimation in non- AmericanOrdered By: Jeff Jon on 58-88-3153RJY/1.73 sq M.predicted among non-blacks MDRD (S/P/Bld) [Vol rate/Area]60 mL/min/{1.73_m2} >=60 mL/min/1.73m 2FPremier Health Miami Valley HospitalGlucose mean value [Mass/volume] in Blood Estimated from glycated hemoglobinOrdered By: Jeff Jon on 94-92-0812Jgkmaou glucose Estimated from glycated hemoglobin (Bld) [Mass/Vol]194 mg/dLUniversity Hospitals Beachwood Medical CenterHematocrit Auto (Bld) [Volume fraction]Ordered By: Jeff Jon on 15-87-5614Rkpflmaqwf (Bld) [Volume fraction]44.8 %36.0-48.0[facility] Medical CenterHemoglobin A1c percentageOrdered By: Jeff Jon on 92-71-1728BeU3x (Bld) [Mass fraction]8.4 % High4.5-6.2FPremier Health Miami Valley HospitalComment on above:ADA RECOMMENDED LIMIT 4.0 - 6.0ADA THERAPEUTIC TARGET < 7.0ACTION SUGGESTED> 7.0Hemoglobin [Mass/volume] in BloodOrdered By: Jeff Jon on 98-39-0030Ifnmsmdwlh (Bld) [Mass/Vol]15.1 g/dL12.0-16.0[facility] CenterLaboratory - Chemistry and Chemistry - challengeOrdered By: Jeff Jon on 27-68-0249Vevyfyc [Mass/Vol]4.1 g/dL3.4-5.0[facility] Medical CenterALP [Catalytic activity/Vol]102 U/X21-605ZyxvogectUniversity Hospitals Beachwood Medical CenterALT [Catalytic activity/Vol]32 U/B11-70KfxdyxxgdUniversity Hospitals Beachwood Medical CenterAST [Catalytic activity/Vol]22 U/E02-26NtpcjtjmyUniversity Hospitals Beachwood Medical CenterBilirubin [Mass/Vol]0.7 mg/dL0.2-1.0[facility] CenterCalcium [Mass/Vol]10.0 mg/dL 8.5-10.1FPremier Health Miami Valley HospitalChloride [Moles/Vol]102 mmol/L98-107 [facility] CenterCholesterol [Mass/Vol]130 mg/dL<=200[facility] CenterCholesterol in HDL [Mass/Vol]67 mg/gKZzxd17-17OvpwlljroUniversity Hospitals Beachwood Medical CenterComment on above:> or =60 mg/dl - LOW CARDIOVASCULAR RISK<40 mg/dl - HIGH CARDIOVASCULAR RISKCO2 [Moles/Vol]30.0 mmol/L21.0-32.0 [facility] CenterCreatinine [Mass/Vol]0.96 mg/dL0.55-1.02 [facility] CenterFree T4 [Mass/Vol]2.15 ng/dLHigh0.76-1.46 [facility] CenterGFR/1.73 sq M.predicted MDRD (S/P/Bld) [Vol rate/Area]mL/min/{1.73_m2}>=60 mL/min/1.73m 2FPremier Health Miami Valley Hospital Glucose [Mass/Vol]145 mg/oBRyfq93-606PolnuuvbaUniversity Hospitals Beachwood Medical CenterPotassium [Moles/Vol]4.3 mmol/L3.5-5.1FPremier Health Miami Valley HospitalProtein [Mass/Vol] 7.9 g/dL6.4-8.2FTrinity Health Systemodium [Moles/Vol]142 mmol/L 136-145[facility] Medical CenterTriglyceride [Mass/Vol]54 mg/dL<=150 [facility] CenterTSH Qn0.282 m[IU]/LLow0.358-3.740[facility] CenterUrea nitrogen [Mass/Vol]19.0 mg/dLHigh7.0-18.0[facility] CenterUrea nitrogen/Creatinine [Mass ratio]19.8 mg/mgUniversity Hospitals Beachwood Medical CenterLaboratory - Hematology and Cell countsOrdered By: Jeff Jon on 51-16-6068Pvhjzwgp granulocytes/100 WBC (Bld)0.4 %0.0-0.5FPremier Health Miami Valley HospitalLeukocytes [#/volume] corrected for nucleated erythrocytes in Blood by Automated counOrdered By: Jeff Jon on 78-80-4603BPY corrected for nucl RBC Auto (Bld) [#/Vol]8.0 10 3/uL4.0-11.0[facility] CenterLymphocytes Auto (Bld) [#/Vol]Ordered By: Jeff Jon on 39-42-5384Xkzzbqocjqw (Bld) [#/Vol]2.3 10 3/uL1.2-3.8[facility] CenterLymphocytes/100 WBC Auto (Bld)Ordered By: Jeff Jon on 02-24-2025 Lymphocytes/100 WBC (Bld)28.9 %20.5-60.0[facility] HospitalH Auto (RBC) [Entitic mass]Ordered By: Jeff Jon on 36-38-3655IGH (RBC) [Entitic mass]31.0 pg26.7-34.0[facility] Medical CenterMCHC Auto (RBC) [Mass/Vol]Ordered By: Jeff Jon on 75-41-2673VNRA (RBC) [Mass/Vol]33.7 g/dL 29.9-35.2FPremier Health Miami Valley HospitalMCV Auto (RBC) [Entitic vol]Ordered By: Jeff Jon on 94-04-8949AQE (RBC) [Entitic vol]92.0 fL81.0-99.0[facility] Medical CenterMonocytes Auto (Bld) [#/Vol]Ordered By: Jeff Jon on 58-94-7417Wlyelogno (Bld) [#/Vol]0.5 10 3/uL0.3-0.8[facility] CenterMonocytes/100 WBC Auto (Bld)Ordered By: Jeff Jon on 02-24-2025 Monocytes/100 WBC (Bld)6.6 %1.7-12.0[facility] Medical CenterNeutrophils Auto (Bld) [#/Vol]Ordered By: Jeff Jon on 61-96-5119Tarjngpoazq (Bld) [#/Vol]4.7 10 3/uL1.4-6.5FPremier Health Miami Valley HospitalNeutrophils/100 WBC Auto (Bld)Ordered By: Jeff Jon on 90-21-7272Qppbokpfrmq/100 WBC (Bld)58.3 % 43.0-75.0[facility] CenterNo Panel InformationOrdered By: Jeff Jon on 737343-Dmnyhwa Vitamin D Total43.0 ng/mLUniversity Hospitals Beachwood Medical CenterComment on above:<20 ng/mL Vit D cbzpizrqb84-<30 ng/mL Vit D zuvzwnnnbows23-840 ng/mL Vit D sufficient>100 ng/mL Potential Toxicity Eosinophils # (Auto)0.4 10 3/uL0.0-0.7FPremier Health Miami Valley HospitalFree Triiodothyronine3.08 pg/mL2.18-3.98[facility] CenterImmature Granulocyte # (Auto)0.03 10 3/uL0.00-0.03[facility] Platelet mean volume Auto (Bld) [Entitic vol]Ordered By: Jeff Jon on 93-70-8119Sfjuddyb mean volume (Bld) [Entitic vol]9.9 fL9.5-13.5FPremier Health Miami Valley HospitalPlatelets Auto (Bld) [#/Vol]Ordered By: Jeff Jon on 67-12-6329Keekuirjm (Bld) [#/Vol]360 10 3/aO522-007GjfotzluaUniversity Hospitals Beachwood Medical CenterRBC Auto (Bld) [#/Vol]Ordered By: Jeff Jon on 05-44-3757LNL (Bld) [#/Vol]4.87 10 6/uL4.20-5.40[facility] Medical Centererum or plasma albumin/globulin mass ratioOrdered By: Jeff Jon on 02-24-2025 Albumin/Globulin [Mass ratio]1.1 {ratio}[facility] Medical Centererum or plasma anion gap determinationOrdered By: Jeff Jon on 93-03-7970Rlond gap [Moles/Vol]14.3 mmol/LFTrinity Health Systemerum or plasma insulin measurement (units/volume)Ordered By: Jeff Jon on 24-25-2197Jhgynxt Qn12.7 u[iU]/mL2.6-24.9[facility] Medical CenterComment on above:Performed at: [facility] Lab[address] [id number] Director: Giuseppe Newell PhD, Phone: [phone] or plasma total cholesterol/high density lipoprotein (HDL) cholesterol mass ratOrdered By: Jeff Jon on 02-24-2025 Cholesterol.total/Cholesterol in HDL [Mass ratio]1.9 {ratio}[facility] CenterComment on above:3.3 - 4.4 LOW RISK4.4 - 7.1 AVERAGE RISK7.1 - 11.0 MODERATE RISK>11.0 HIGH YLSP42hq [id number] was seen 02/09/25[facility] CenterFollow-Upon 71-10-9925Pdxnih-[id number] Canelo Pathak 1965 F Date Provider Department Center 02/09/2025 NEO MORENO NUBIA [facility] Family History Problem Relation Age of Onset Pulmonary embolism Mother Kidney disease Father Heart attack Father Family Status - Relation Status Age at Mother Father Brother Alive Level of Service:73771 [place] OFFICE/OUTPATIENT ESTABLISHED MOD MDM [facility] PrebleGlomerular filtration rate (GFR) estimation in non- AmericanOrdered By: Neo Espino on 55-68-0169GWG/1.73 sq M.predicted among non-blacks MDRD (S/P/Bld) [Vol rate/Area]mL/min/{1.73_m2}>=60 mL/min/1.[address]m [address] [place], [place] [address]Laboratory - Chemistry and Chemistry - challengeOrdered By: Neo Espino on 36-75-4027Ppbxkiu [Mass/Vol]9.6 mg/dL8.5-10.1FPremier Health Miami Valley HospitalChloride [Moles/Vol] 102 mmol/F03-381GwksbioexUniversity Hospitals Beachwood Medical CenterCO2 [Moles/Vol]27.3 mmol/L 21.0-32.0[facility] CenterCreatinine [Mass/Vol]0.94 mg/dL 0.55-1.02[facility] Medical CenterGFR/1.73 sq M.predicted MDRD (S/P/Bld) [Vol rate/Area]mL/min/{1.73_m2}>=60 mL/min/1.[address]m [address] [place], [place] [address]Glucose [Mass/Vol]175 mg/iRPzpd78-916EeinlsytqUniversity Hospitals Beachwood Medical Center Potassium [Moles/Vol]4.5 mmol/L3.5-5.1FTrinity Health Systemodium [Moles/Vol]139 mmol/P896-030NuuepqrsaUniversity Hospitals Beachwood Medical CenterUrea nitrogen [Mass/Vol]19.0 mg/dLHigh7.0-18.0[facility] CenterUrea nitrogen/Creatinine [Mass ratio]20.2 mg/mgFairfield Medical Centererum or plasma anion gap determinationOrdered By: Neo Fitzpatrciklloyd on 84-00-0164Xinnw gap [Moles/Vol]14.2 mmol/LFPremier Health Miami Valley Hospital36on Patient called back and I advised her she could stop Imdur and metformin (per PCP). She was very happy and verbalized understanding.[facility]36LM for patient to return my call.[facility]36on [id number] called s/p cath on 01/08. You started [...] gets very lightheaded and nauseous. Any recommendations? Thanks![facility] HospitalTelephoneon 25-43-5038Mcbbpcyqi [id number] LawsonCanelo Sue 1965 F Date Provider Department Center 01/12/2025 JURGEN HAWKINS NUBIA [facility] Family History Problem Relation Age of Onset Pulmonary embolism Mother Kidney disease Father Heart attack Father Family Status - Relation Status Age at Mother Father Brother AliveNormalUniversity of [facility] [id number] Attestation signed by Won Blanton MD at 01/08/2025 8:20 AM Won Blanton MD, MPH, FACC, [facility], [facility] Interventional Cardiology Pager Email: [email or web address] Patient: Canelo Pathak Pre-sedation Evaluation: Moderate sedation [...] Hypertension 10/11/2023 Hypothyroidism 10/11/2023 Osteoarthritis 10/11/2023 Other chcf (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 10/11/2023 Palpitation 10/11/2023 Polyarthralgia 10/11/2023 Seasonal allergies 10/11/2023 UTI (urinary tract infection) 10/11/2023 Vitamin D deficiency 10/11/2023 Diabetes (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) 10/11/2021 Binge eating disorder 09/20/2015 BMI 50.0-59.9, adult (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 Raiza Rocha PGY-4 [employer] Supervisor [facility] [1] Past Medical History: Diagnosis Date Abnormal ECG Asthma Diabetes mellitus ([facility]) GERD (gastroesophageal reflux disease) Hyperlipidemia Hypertension [...] two times daily. glimepiri (more content not included)...[facility] HospitalHPon [id number] Attestation signed by Won Blanton MD at [...] me. Additional Comments: Won Blanton MD, MPH, [facility], [facility], [facility] Interventional Cardiology Pager Email: [email or web address] H&P reviewed. The patient was examined and there are no changes to the H&P. Will proceed with coronary angiography and right heart catheterization for further evaluation of abnormal stress test and shortness of breath. Consent for blood products obtained. Risks, benefits, and alternatives to procedure discussed with patient in detail who expressed understanding and agreed to proceed.[facility] HospitalNURSNOTEon 17-85-1452MJROATMGCX educated pt on d/c instructions. This included: [...] wheeled off of unit with all of belongings.[facility] HospitalOrders Onlyon 27-56-9292Uyqddn [id number] Canelo Pathak 1965 F Date Provider Department Center 01/08/2025 [facility] Family History Problem Relation Age of Onset Pulmonary embolism Mother Kidney disease Father Heart attack Father Family Status - Relation Status Age at Mother Father Brother AliveNormalUniversity St. Mary's Medical CenterBasophils Auto (Bld) [#/Vol]Ordered By: Neo Espino on 77-24-7379Pwtcygfzd (Bld) [#/Vol]0.1 10 3/uL0.0-0.1FPremier Health Miami Valley HospitalBasophils/100 WBC Auto (Bld)Ordered By: Neo Espino on 01-03-0368Yvqevtayn/100 WBC (Bld)1.0 %0.2-2.0[facility] CenterEosinophils/100 WBC Auto (Bld)Ordered By: Neo Espino on 38-46-1014Ujpthfyzjui/100 WBC (Bld)6.1 %0.9-7.0[facility] Medical CenterErythrocyte distribution width Auto (RBC) [Ratio]Ordered By: Neo Espino on 99-54-8421Mhygdhqijya distribution width (RBC) [Ratio]12.2 % 11.0-15.0[facility] Medical CenterGlomerular filtration rate (GFR) estimation in non- AmericanOrdered By: Neo Espino on 01-06-2025 GFR/1.73 sq M.predicted among non-blacks MDRD (S/P/Bld) [Vol rate/Area] mL/min/{1.73_m2}>=60 mL/min/1.73m 2FPremier Health Miami Valley HospitalHematocrit Auto (Bld) [Volume fraction]Ordered By: Neo Espino on 48-31-0649Kxblazdbyv (Bld) [Volume fraction]40.9 %36.0-48.0[facility] Hemoglobin [Mass/volume] in BloodOrdered By: Neo Espino on 01-06-2025 Hemoglobin (Bld) [Mass/Vol]13.7 g/dL12.0-16.0[facility] Laboratory - Chemistry and Chemistry - challengeOrdered By: Neo Espino on 62-76-5327Egcgygv [Mass/Vol]9.2 mg/dL8.5-10.1FPremier Health Miami Valley Hospital Chloride [Moles/Vol]104 mmol/H82-674YgvpstqceUniversity Hospitals Beachwood Medical CenterCO2 [Moles/Vol]30.0 mmol/L21.0-32.0[facility] CenterCreatinine [Mass/Vol]0.67 mg/dL0.55-1.02[facility] Medical CenterGFR/1.73 sq M.predicted MDRD (S/P/Bld) [Vol rate/Area]mL/min/{1.73_m2}>=60 mL/min/1.73m 2 [facility] CenterGlucose [Mass/Vol]134 mg/jAUcki58-281TimhlaqphUniversity Hospitals Beachwood Medical CenterPotassium [Moles/Vol]4.4 mmol/L3.5-5.1FTrinity Health Systemodium [Moles/Vol]139 mmol/M863-386JeshvflopUniversity Hospitals Beachwood Medical CenterUrea nitrogen [Mass/Vol]19.0 mg/dLHigh7.0-18.0[facility] CenterUrea nitrogen/Creatinine [Mass ratio]28.4 mg/mgUniversity Hospitals Beachwood Medical CenterLaboratory - Hematology and Cell countsOrdered By: Neo Espino on 47-69-7261Npmynuln granulocytes/100 WBC (Bld)0.3 %0.0-0.5FPremier Health Miami Valley HospitalLeukocytes [#/volume] corrected for nucleated erythrocytes in Blood by Automated counOrdered By: Neo Espino on 78-96-4028YMO corrected for nucl RBC Auto (Bld) [#/Vol]7.9 10 3/uL4.0-11.0[facility] Medical CenterLymphocytes Auto (Bld) [#/Vol]Ordered By: Neo Espino on 01-06-2025 Lymphocytes (Bld) [#/Vol]2.3 10 3/uL1.2-3.8[facility] Lymphocytes/100 WBC Auto (Bld)Ordered By: Neo Espino on 01-06-2025 Lymphocytes/100 WBC (Bld)28.9 %20.5-60.0[facility] Auto (RBC) [Entitic mass]Ordered By: Neo Espino on 63-82-5108BDB (RBC) [Entitic mass]30.9 pg26.7-34.0[facility] Medical CenterMCHC Auto (RBC) [Mass/Vol]Ordered By: Neo Espino on 24-12-2862WUEX (RBC) [Mass/Vol]33.5 g/dL29.9-35.2FPremier Health Miami Valley HospitalMCV Auto (RBC) [Entitic vol] Ordered By: Neo Espino on 51-46-3734VQP (RBC) [Entitic vol]92.3 fL 81.0-99.0[facility] CenterMonocytes Auto (Bld) [#/Vol]Ordered By: Neo Espino on 27-59-5748Bfjqbgmos (Bld) [#/Vol]0.5 10 3/uL0.3-0.8 [facility] CenterMonocytes/100 WBC Auto (Bld)Ordered By: Neo Espino on 83-36-5763Rbcikbawm/100 WBC (Bld)6.4 %1.7-12.0[facility] Medical CenterNeutrophils Auto (Bld) [#/Vol]Ordered By: Neo Espino on 03-95-7674Qzfttrybksz (Bld) [#/Vol]4.5 10 3/uL1.4-6.5FPremier Health Miami Valley HospitalNeutrophils/100 WBC Auto (Bld)Ordered By: Neo Espino on 01-06-2025 Neutrophils/100 WBC (Bld)57.3 %43.0-75.0[facility] CenterNo Panel InformationOrdered By: Neo Espino on 10-96-1041Sxvbjkjnncf # (Auto) 0.5 10 3/uL0.0-0.7FPremier Health Miami Valley HospitalImmature Granulocyte # (Auto) 0.02 10 3/uL0.00-0.03[facility] Medical CenterPlatelet mean volume Auto (Bld) [Entitic vol]Ordered By: Neo Espino on 39-68-5357Maohriox mean volume (Bld) [Entitic vol]10.5 fL9.5-13.5FPremier Health Miami Valley Hospital Platelets Auto (Bld) [#/Vol]Ordered By: Neo Espino on 48-77-4679Nhhieqiqb (Bld) [#/Vol]358 10 3/sR265-877WzsibtksgUniversity Hospitals Beachwood Medical CenterRBC Auto (Bld) [#/Vol]Ordered By: Noe Espino on 73-42-0899DMY (Bld) [#/Vol]4.43 10 6/uL 4.20-5.40[facility] Medical Centererum or plasma anion gap determinationOrdered By: Neo Espino on 92-96-7037Sgcsq gap [Moles/Vol]9.4 mmol/LFPremier Health Miami Valley HospitalHPon 63-55-6227HECE Cardiology [facility] Subjective Canelo Pathak is a 59 [...] Asymmetric SNHL (sensorineural hearing loss) Osteoarthritis Other chcf (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 Palpitation Polyarthralgia Pulsatile tinnitus of right ear Right-sided tinnitus Seasonal allergies Type 2 diabetes mellitus with hyperglycemia, without long-term current use of insulin ([facility]) UTI (urinary tract infection) Vitamin D [...] and GERD who was admitted to the [facility] on 08/05/2024 with chest pressure [...] She is not ill-appearing. (more content not included)...[facility] HospitalOffice Visiton 30-51-0426Gmyoko-up [id number] Canelo Pathak 1965 F Date Provider Department Center 01/05/2025 NEO MORENO CARD [facility] Family History Problem Relation Age of Onset Pulmonary embolism Mother Kidney disease Father Heart attack Father Family Status - Relation Status Age at Mother Father Brother Alive Level of Service:99372 [place] OFFICE/OUTPATIENT ESTABLISHED HIGH [facility] PrebleOrders Onlyon 28-43-5211Avpjuc [id number] Canelo Pathak 1965 F Date Provider Department Center 01/05/2025 [id number], HISTORICAL CARD [facility] Family History Problem Relation Age of Onset Pulmonary embolism Mother Kidney disease Father Heart attack Father Family Status - Relation Status Age at Mother Father Brother AliveNoalUniBarney Children's Medical CenterOrders Onlyon 12-29-2024 Orders [id number] Canelo Pathak 1965 F Date Provider Department Center 12/29/2024 [id number], HISTORICAL CARD [facility] Family History Problem Relation Age of Onset Pulmonary embolism Mother Kidney disease Father Heart attack Father Family Status - Relation Status Age at Mother Father Brother AliveNoWayne HospitalBasophils Auto (Bld) [#/Vol]Ordered By: Jeff Jon on 96-91-0501Zkrclfcdl (Bld) [#/Vol]0.1 10 3/uL 0.0-0.1FPremier Health Miami Valley HospitalBasophils/100 WBC Auto (Bld)Ordered By: Jeff Jon on 80-59-8101Nzpidswuo/100 WBC (Bld)0.7 %0.2-2.0[facility] CenterEosinophils/100 WBC Auto (Bld)Ordered By: Jeff Jon on 93-16-1035Ldeceybofbg/100 WBC (Bld)4.6 %0.9-7.0[facility] Erythrocyte distribution width Auto (RBC) [Ratio]Ordered By: Jeff Jon on 80-06-9781Unvxcezlrjb distribution width (RBC) [Ratio]12.0 %11.0-15.0[facility] Medical CenterGlucose mean value [Mass/volume] in Blood Estimated from glycated hemoglobinOrdered By: Jeff Jon on 71-93-7633Vlouneb glucose Estimated from glycated hemoglobin (Bld) [Mass/Vol]186 mg/dLUniversity Hospitals Beachwood Medical CenterHematocrit Auto (Bld) [Volume fraction]Ordered By: Jeff Jon on 12-13-5431Wurgerqotf (Bld) [Volume fraction]40.2 %36.0-48.0[facility] Medical CenterHemoglobin A1c percentageOrdered By: Jeff Jon on 11-26-2024 HbA1c (Bld) [Mass fraction]8.1 %High4.5-6.2FPremier Health Miami Valley Hospital Comment on above:ADA RECOMMENDED LIMIT 4.0 - 6.0ADA THERAPEUTIC TARGET < 7.0ACTION SUGGESTED> 7.0Hemoglobin [Mass/volume] in BloodOrdered By: Jeff Jon on 41-18-0212Mclldegxrx (Bld) [Mass/Vol]13.4 g/dL12.0-16.0[facility] CenterLaboratory - Chemistry and Chemistry - challengeOrdered By: Jeff Jon on 76-45-4752Rbxpgpyum Ql (U)NegativeNEGATIVEUniversity Hospitals Beachwood Medical CenterGlucose (U) [Mass/Vol]NegativeNEGATIVEUniversity Hospitals Beachwood Medical CenterKetones Ql (U)NegativeNEGKettering Health TroypH (U)6.0 [pH]5.0-9.0Fairfield Medical Centerpecific gravity (U) [Rel density] >=1.347Mzohihoe4.005-1.025[facility] Medical CenterUrobilinogen Qn (U) 0.2 {David'U}/dL0.2-1.0[facility] CenterLaboratory - Hematology and Cell countsOrdered By: Jeff Jon on 13-97-6111Mwsxcsor granulocytes/100 WBC (Bld)0.6 %High0.0-0.5FPremier Health Miami Valley Hospital Laboratory - Specimen informationOrdered By: Jeff Jon on 11-26-2024 Appearance (U)CLEARCLEARFPremier Health Miami Valley HospitalColor (U)LT. YELLOW YELLOWUniversity Hospitals Beachwood Medical CenterLaboratory - UrinalysisOrdered By: Jeff Jon on 22-20-8936Dasmmsqup esterase Test strip Ql (U)NegativeNEGATIVE [facility] CenterNitrite Ql (U)NegativeNEGATIVEUniversity Hospitals Beachwood Medical CenterProtein Ql (U)NegativeNEG/TRACEUniversity Hospitals Beachwood Medical CenterLeukocytes [#/volume] corrected for nucleated erythrocytes in Blood by Automated counOrdered By: Jeff Jon on 87-78-0814JRG corrected for nucl RBC Auto (Bld) [#/Vol]7.2 10 3/uL4.0-11.0[facility] Lymphocytes Auto (Bld) [#/Vol]Ordered By: Jeff Jon on 38-23-0501Nspzmbsmxez (Bld) [#/Vol]1.9 10 3/uL1.2-3.8[facility] Medical CenterLymphocytes/100 WBC Auto (Bld)Ordered By: Jeff Jon on 27-37-8815Xxjuxtngqqn/100 WBC (Bld) 25.8 %20.5-60.0[facility] HospitalH Auto (RBC) [Entitic mass] Ordered By: Jeff Jon on 94-00-1638KGC (RBC) [Entitic mass]31.0 pg26.7-34.0 [facility] Medical CenterMCHC Auto (RBC) [Mass/Vol]Ordered By: Jeff Jon on 32-62-0091QXAT (RBC) [Mass/Vol]33.3 g/dL29.9-35.2FPremier Health Miami Valley HospitalMCV Auto (RBC) [Entitic vol]Ordered By: Jeff Jon on 11-26-2024 MCV (RBC) [Entitic vol]93.1 fL81.0-99.0[facility] Monocytes Auto (Bld) [#/Vol]Ordered By: Jeff Jon on 60-57-3414Jzhyfhyev (Bld) [#/Vol]0.6 10 3/uL0.3-0.8[facility] CenterMonocytes/100 WBC Auto (Bld)Ordered By: Jeff Jon on 98-53-5412Jziflpgbj/100 WBC (Bld)7.7 % 1.7-12.0[facility] Medical CenterNeutrophils Auto (Bld) [#/Vol]Ordered By: Jeff Jon on 55-48-0087Qhcssfzsnzz (Bld) [#/Vol]4.4 10 3/uL1.4-6.5 [facility] Medical CenterNeutrophils/100 WBC Auto (Bld)Ordered By: Jeff Jon on 95-00-1032Xvjihltplqu/100 WBC (Bld)60.6 %43.0-75.0[facility] CenterNo Panel InformationOrdered By: Jeff Jon on 11-26-2024 Eosinophils # (Auto)0.3 10 3/uL0.0-0.7FPremier Health Miami Valley HospitalImmature Granulocyte # (Auto)0.04 10 3/uLHigh0.00-0.03[facility] Urine Occult BloodNegativeNEGATIVEUniversity Hospitals Beachwood Medical CenterPlatelet mean volume Auto (Bld) [Entitic vol]Ordered By: Jeff Jon on 95-62-2875Bpeiclye mean volume (Bld) [Entitic vol]9.6 fL9.5-13.5FPremier Health Miami Valley Hospital Platelets Auto (Bld) [#/Vol]Ordered By: Jeff Jon on 93-55-2475Zgzvcndfd (Bld) [#/Vol]306 10 3/dG765-695PlazzewaqUniversity Hospitals Beachwood Medical CenterRBC Auto (Bld) [#/Vol]Ordered By: Jeff Jon on 61-87-9512WWF (Bld) [#/Vol]4.32 10 6/uL 4.20-5.40[facility] Medical CenterUrine Cultureon 39-08-4266Lgongrsq identified Cx Nom (U)75,000 colonies/ml mixed bacterial skin contaminants 2 Days PERFORMED BY: [facility] [address] [place] [address] PATHOLOGIST [employer]ICE MANAGER ASAD DANIELLE M.D.NormalThe [facility] Durham Physician GroupComment on above: Performed By: #### CUU #### [facility] [address] [place] [address] USACholesterol in LDL Calc [Mass/Vol]Ordered By: Jeff Jon on 29-57-6671Izxjdmeaoda in LDL [Mass/Vol]107.0 mg/dLUniversity Hospitals Beachwood Medical CenterComment on above:<100 mg/dl DXNZWSC836-126 mg/dl NEAR OR ABOVE HRMNEQM788-164 mg/dl BORDERLINE IUQR483-571 mg/dl HIGH>190 mg/dl VERY HIGH Cholesterol in VLDL Calc [Mass/Vol]Ordered By: Jeff Jon on 11-20-2024 Cholesterol in VLDL [Mass/Vol]18.2 mg/dLUniversity Hospitals Beachwood Medical Center Estimated glomerular filtration rate (GFR) non- AmericanOrdered By: Jeff Jon on 63-45-4484NEQ/1.73 sq M.predicted among non-blacks MDRD (S/P/Bld) [Vol rate/Area]mL/min/{1.73_m2}>=60 mL/min/1.73m 2FPremier Health Miami Valley HospitalGlobulin Calc (S) [Mass/Vol]Ordered By: Jeff Jon on 95-96-5622Noebwgzu (S) [Mass/Vol]3.3 g/dLUniversity Hospitals Beachwood Medical CenterLaboratory - Chemistry and Chemistry - challengeOrdered By: Jeff Jon on 73-09-9358Pbfkomp [Mass/Vol]3.4 g/dL3.4-5.0[facility] CenterALP [Catalytic activity/Vol]82 U/U33-495JdilzoaznUniversity Hospitals Beachwood Medical CenterALT [Catalytic activity/Vol]33 U/I39-89McqinjnyhUniversity Hospitals Beachwood Medical CenterAST [Catalytic activity/Vol]20 U/M45-71GdvcgvknzUniversity Hospitals Beachwood Medical CenterBilirubin [Mass/Vol]0.4 mg/dL0.2-1.0[facility] CenterCalcium [Mass/Vol]9.3 mg/dL 8.5-10.1FPremier Health Miami Valley HospitalChloride [Moles/Vol]104 mmol/L98-107 [facility] CenterCholesterol [Mass/Vol]207 mg/dLHigh<=200 [facility] CenterCholesterol in HDL [Mass/Vol]82 mg/pCTuyz52-15 [facility] CenterComment on above:> or =60 mg/dl - LOW CARDIOVASCULAR RISK<40 mg/dl - HIGH CARDIOVASCULAR RISKCO2 [Moles/Vol]27.2 mmol/L21.0-32.0[facility] CenterCreatinine [Mass/Vol]0.68 mg/dL 0.55-1.02[facility] CenterFree T4 [Mass/Vol]1.68 ng/dLHigh 0.76-1.46[facility] CenterGFR/1.73 sq M.predicted MDRD (S/P/Bld) [Vol rate/Area]mL/min/{1.73_m2}>=60 mL/min/1.73m 2FPremier Health Miami Valley HospitalGlucose [Mass/Vol]163 mg/zNDphb69-579JkbkaxrkaUniversity Hospitals Beachwood Medical Center Potassium [Moles/Vol]4.5 mmol/L3.5-5.1FPremier Health Miami Valley HospitalProtein [Mass/Vol]6.7 g/dL6.4-8.2FTrinity Health Systemodium [Moles/Vol]141 mmol/U928-050YwundzxocUniversity Hospitals Beachwood Medical CenterTriglyceride [Mass/Vol]91 mg/dL <=150[facility] CenterTSH Qn0.712 m[IU]/L0.358-3.740[facility] CenterUrea nitrogen [Mass/Vol]15.0 mg/dL7.0-18.0[facility] CenterUrea nitrogen/Creatinine [Mass ratio]22.1 mg/mgUniversity Hospitals Beachwood Medical CenterLaboratory - Chemistry and Chemistry - challengeOrdered By: Neo Espino on 19-25-4874Hqgsabqkv.direct [Mass/Vol]0.1 mg/dL0.0-0.2 [facility] CenterCK [Catalytic activity/Vol]29 U/L26-192 [facility] CenterLaboratory - Hematology and Cell countsOrdered By: Outside Provider on 90-04-7329KWL (Bld) [Velocity]15 mm/h<=30[facility] CenterNo Panel InformationOrdered By: Jeff Jon on 920173-Nkapuby Vitamin D Total34.8 ng/mLUniversity Hospitals Beachwood Medical Center Comment on above:<20 ng/mL Vit D nxnnwuqco08-<30 ng/mL Vit D vxllqulyampd57-479 ng/mL Vit D sufficient>100 ng/mL Potential ToxicityFree Triiodothyronine3.27 pg/mL2.18-3.98[facility] CenterNo Panel InformationOrdered By: Outside Provider on 20-58-1147P-Reactive Protein, Quantitative<0.50 mg/dL<=0.50 [facility] Centercl-70 (Scleroderma) Antibody<0.2 AI0.0-0.9 [facility] CenterComment on above:Performed at: [facility]Bkbcbi[address] [place], [place] [id number] Director: Giuseppe Newell PhD, Phone: [phone] nuclear antibody titerOrdered By: Outside Provider on 28-07-0261Wpyhvkp Ab (S) [Titer]Negative.[facility] Comment on above:Negative <1:80 Borderline 1:80 Positive >1:80ICAP nomenclature: AC-0For more information about Hep-2 cell patterns useANApatterns.org, the official website for theInternational Consensus on Antinuclear Antibody (KATHY)Patterns (ICAP).Performed at: [facility] ServicesHjvsre[address] [place], [id number] Director: Giuseppe Newell PhD, Phone: [phone] or plasma albumin/globulin mass ratioOrdered By: Jeff Jon on 11-20-2024 Albumin/Globulin [Mass ratio]1.0 {ratio}[facility] Centererum or plasma anion gap determinationOrdered By: Jeff Jon on 30-39-0647Vrqvo gap [Moles/Vol]14.3 mmol/LFTrinity Health Systemerum or plasma rheumatoid factor measurement (units/volume)Ordered By: Outside Provider on 64-50-6754Hhnsbkagxr factor Qn[IU]/mL<14.0[facility] Comment on above:Performed at: [facility] CenterPuglmi[address] [place], [place] [id number] Director: Giuseppe Newell PhD, Phone: [phone] or plasma total cholesterol/high density lipoprotein (HDL) cholesterol mass ratOrdered By: Jeff Jon on 65-42-0560Jktxfqygnlm.total/Cholesterol in HDL [Mass ratio]2.5 {ratio}[facility] CenterComment on above:3.3 - 4.4 LOW RISK4.4 - 7.1 AVERAGE RISK7.1 - 11.0 MODERATE RISK>11.0 HIGH RISKLaboratory - Chemistry and Chemistry - challengeon 05-27-1137Hrii T4 [Mass/Vol]2.01 ng/dLHigh0.76-1.46 [facility] CenterTSH Qn0.260 m[IU]/LLow0.358-3.740[facility] CenterNo Panel Informationon 49-01-8561Nqhd Triiodothyronine 2.19 pg/mL2.18-3.98[facility] CenterOffice Visiton 08-25-2024 Follow-up [id number] Canelo Pathak 1965 F Date Provider Department Center 08/25/2024 NEO MORENO Family History Problem Relation Age of Onset Pulmonary embolism Mother Kidney disease Father Heart attack Father Family Status - Relation Status Age at Mother Father Brother Alive Level of Service:[address] [place] OFFICE/OUTPATIENT NEW MODERATE MDM 45 MINUTESNormal [facility] HospitalBasophils Auto (Bld) [#/Vol]on 08-06-2024 Basophils (Bld) [#/Vol]Automated basophil count0.0-0.1FPremier Health Miami Valley HospitalBasophils/100 WBC Auto (Bld)on 58-80-4113Zposekhvg/100 WBC (Bld)Automated basophil %0.2-2.0[facility] CenterCholesterol in LDL Calc [Mass/Vol]on 13-05-9075Numfzwnnyxj in LDL [Mass/Vol]Cholesterol in LDL [Mass/volume] in Serum or Plasma by calculationUniversity Hospitals Beachwood Medical Center Comment on above:<100 mg/dl WJQJLND655-278 mg/dl NEAR OR ABOVE DCQKRKY762-234 mg/dl BORDERLINE MROM723-578 mg/dl HIGH>190 mg/dl VERY HIGHCholesterol in VLDL Calc [Mass/Vol]on 19-34-6816Fljceijlmtp in VLDL [Mass/Vol]Cholesterol in VLDL [Mass/volume] in Serum or Plasma by calculationUniversity Hospitals Beachwood Medical Center Eosinophils/100 WBC Auto (Bld)on 65-54-8230Thadaotrrup/100 WBC (Bld)Automated eosinophil %0.9-7.0[facility] CenterErythrocyte distribution width Auto (RBC) [Ratio]on 64-91-4855Bzmjqdqfwek distribution width (RBC) [Ratio]Erythrocyte distribution width [Ratio] by Automated count11.0-15.0 [facility] CenterEstimated glomerular filtration rate (GFR) non- Americanon 56-45-7621OQL/1.73 sq M.predicted among non-blacks MDRD (S/P/Bld) [Vol rate/Area]Estimated glomerular filtration rate (GFR) non->=60 mL/min/1.73m 2FPremier Health Miami Valley HospitalGlobulin Calc (S) [Mass/Vol]on 33-04-7470Tzcovbmc (S) [Mass/Vol]Serum globulin measurement by calculation (mass/volume)[facility] CenterGlucose mean value [Mass/volume] in Blood Estimated from glycated hemoglobinon 05-01-5265Qpbpzbl glucose Estimated from glycated hemoglobin (Bld) [Mass/Vol]Glucose mean value [Mass/volume] in Blood Estimated from glycated hemoglobinUniversity Hospitals Beachwood Medical CenterHematocrit Auto (Bld) [Volume fraction]on 52-62-2474Zybqrwgdta (Bld) [Volume fraction]Hematocrit [Volume Fraction] of Blood by Automated count 36.0-48.0[facility] CenterHemoglobin A1c percentageon 08-06-2024 HbA1c (Bld) [Mass fraction]Hemoglobin A1c percentageHigh4.5-6.2FPremier Health Miami Valley HospitalComment on above:ADA RECOMMENDED LIMIT 4.0 - 6.0ADA THERAPEUTIC TARGET < 7.0ACTION SUGGESTED> 7.0Hemoglobin [Mass/volume] in Bloodon 92-53-4450Aytxqtfara (Bld) [Mass/Vol]Hemoglobin [Mass/volume] in Blood12.0-16.0 [facility] CenterLaboratory - Chemistry and Chemistry - challengeon 21-11-4277Nmohfsv [Mass/Vol]4.1 g/dL3.4-5.0[facility] CenterALP [Catalytic activity/Vol]91 U/B96-920KhkwnparxUniversity Hospitals Beachwood Medical CenterALT [Catalytic activity/Vol]24 U/Y30-28XescokjhlUniversity Hospitals Beachwood Medical Center AST [Catalytic activity/Vol]23 U/Y87-14JeggooftfUniversity Hospitals Beachwood Medical Center Bilirubin [Mass/Vol]0.5 mg/dL0.2-1.0[facility] CenterCalcium [Mass/Vol]10.1 mg/dL8.5-10.1FPremier Health Miami Valley HospitalChloride [Moles/Vol]100 mmol/S93-931WwluzxsoqUniversity Hospitals Beachwood Medical CenterCholesterol [Mass/Vol]258 mg/dLHigh<=200[facility] CenterCholesterol in HDL [Mass/Vol]86 mg/tFMoqp05-49GvakjgmvuUniversity Hospitals Beachwood Medical CenterComment on above:> or =60 mg/dl - LOW CARDIOVASCULAR RISK<40 mg/dl - HIGH CARDIOVASCULAR RISKCO2 [Moles/Vol]27.5 mmol/L21.0-32.0[facility] CenterCreatinine [Mass/Vol]0.91 mg/dL0.55-1.02[facility] CenterGFR/1.73 sq M.predicted MDRD (S/P/Bld) [Vol rate/Area]mL/min/{1.73_m2}>=60 mL/min/1.73m 2 [facility] CenterGlucose [Mass/Vol]125 mg/oOTria31-977YyyktkzsdUniversity Hospitals Beachwood Medical CenterMagnesium [Mass/Vol]1.9 mg/dL1.8-2.4FPremier Health Miami Valley HospitalPotassium [Moles/Vol]4.0 mmol/L3.5-5.1FPremier Health Miami Valley HospitalProtein [Mass/Vol]7.7 g/dL6.4-8.2FTrinity Health Systemodium [Moles/Vol]140 mmol/N556-355PopspmrfrUniversity Hospitals Beachwood Medical CenterTriglyceride [Mass/Vol]158 mg/dLHigh<=150[facility] CenterTSH Qn50.079 m[IU]/LHigh0.358-3.740[facility] CenterUrea nitrogen [Mass/Vol] 18.0 mg/dL7.0-18.0[facility] CenterUrea nitrogen/Creatinine [Mass ratio]19.8 mg/mgUniversity Hospitals Beachwood Medical CenterLaboratory - Hematology and Cell countson 03-53-0572Trkxjjis granulocytes/100 WBC (Bld)0.5 %0.0-0.5 [facility] CenterLeukocytes [#/volume] corrected for nucleated erythrocytes in Blood by Automated counon 29-28-9157WTJ corrected for nucl RBC Auto (Bld) [#/Vol]Leukocytes [#/volume] corrected for nucleated erythrocytes in Blood by Automated coun4.0-11.0[facility] CenterLymphocytes Auto (Bld) [#/Vol]on 49-98-0986Uspvhbhwvsl (Bld) [#/Vol]Lymphocytes [#/volume] in Blood by Automated count1.2-3.8[facility] CenterLymphocytes/100 WBC Auto (Bld)on 02-99-5081Yoddnzqefkk/100 WBC (Bld)Lymphocytes/100 leukocytes in Blood by Automated count20.5-60.0[facility] HospitalH Auto (RBC) [Entitic mass]on 10-26-4118JXD (RBC) [Entitic mass]MCH [Entitic mass] by Automated count26.7-34.0[facility] CenterMCHC Auto (RBC) [Mass/Vol]on 31-48-6474[place] (RBC) [Mass/Vol]MCHC [Mass/volume] by Automated count29.9-35.2FPremier Health Miami Valley HospitalMCV Auto (RBC) [Entitic vol]on 27-99-8334DVC (RBC) [Entitic vol]MCV [Entitic volume] by Automated count 81.0-99.0[facility] CenterMonocytes Auto (Bld) [#/Vol]on 35-09-5599Azmqfdsvi (Bld) [#/Vol]Automated blood monocyte count0.3-0.8[facility] CenterMonocytes/100 WBC Auto (Bld)on 63-89-4804Ymoudghdi/100 WBC (Bld)Automated monocyte %1.7-12.0[facility] Neutrophils Auto (Bld) [#/Vol]on 54-00-3329Trystattyrp (Bld) [#/Vol]Neutrophils [#/volume] in Blood by Automated count1.4-6.5FPremier Health Miami Valley Hospital Neutrophils/100 WBC Auto (Bld)on 13-84-8492Czmrgqaupln/100 WBC (Bld)Automated neutrophil %43.0-75.0[facility] CenterNo Panel Informationon 72-13-5532Bpgazcwufrq # (Auto)0.4 10 3/uL0.0-0.7FPremier Health Miami Valley HospitalImmature Granulocyte # (Auto)0.04 10 3/uLHigh0.00-0.03[facility] CenterTroponin I High Sensitivity6.6 pg/mL4.0-51.3FPremier Health Miami Valley HospitalComment on above:CUT-OFF POINTS HAVE BEEN ESTABLISHED [...] INFORMATION.Platelet mean volume Auto (Bld) [Entitic vol]on 12-95-6857Jvffvfcd mean volume (Bld) [Entitic vol] Platelet mean volume [Entitic volume] in Blood by Automated count9.5-13.5 [facility] CenterPlatelets Auto (Bld) [#/Vol]on 08-06-2024 Platelets (Bld) [#/Vol]Platelets [#/volume] in Blood by Automated kyoai323-522 [facility] CenterRBC Auto (Bld) [#/Vol]on 95-62-2238WXZ (Bld) [#/Vol]Erythrocytes [#/volume] in Blood by Automated count4.20-5.40[facility] Centererum or plasma albumin/globulin mass ratioon 08-06-2024 Albumin/Globulin [Mass ratio]Serum or plasma albumin/globulin mass ratio [facility] Centererum or plasma anion gap determinationon 76-95-5436Fuswn gap [Moles/Vol]Serum or plasma anion gap determinationFairfield Medical Centererum or plasma total cholesterol/high density lipoprotein (HDL) cholesterol mass constantin 67-31-1206Uyyqhsxcrgd.total/Cholesterol in HDL [Mass ratio]Serum or plasma total cholesterol/high density lipoprotein (HDL) cholesterol mass ratUniversity Hospitals Beachwood Medical CenterComment on above:3.3 - 4.4 LOW RISK4.4 - 7.1 AVERAGE RISK7.1 - 11.0 MODERATE RISK>11.0 HIGH RISK Basophils Auto (Bld) [#/Vol]on 70-66-2224Mtkfebjrr (Bld) [#/Vol]Automated basophil count0.0-0.1FPremier Health Miami Valley HospitalBasophils/100 WBC Auto (Bld)on 84-64-9512Eywvtxooj/100 WBC (Bld)Automated basophil %0.2-2.0[facility] CenterEosinophils/100 WBC Auto (Bld)on 08-05-2024 Eosinophils/100 WBC (Bld)Automated eosinophil %0.9-7.0[facility] CenterErythrocyte distribution width Auto (RBC) [Ratio]on 39-86-4031Vfeakzmqmva distribution width (RBC) [Ratio]Erythrocyte distribution width [Ratio] by Automated count11.0-15.0[facility] CenterEstimated glomerular filtration rate (GFR) non- Americanon 00-74-2544YVB/1.73 sq M.predicted among non-blacks MDRD (S/P/Bld) [Vol rate/Area]Estimated glomerular filtration rate (GFR) non->=60 mL/min/1.73m 2FPremier Health Miami Valley HospitalGlobulin Calc (S) [Mass/Vol]on 25-41-1715Gdqvlhut (S) [Mass/Vol]Serum globulin measurement by calculation (mass/volume)[facility] CenterHematocrit Auto (Bld) [Volume fraction]on 71-70-0804Fonvzxosjf (Bld) [Volume fraction]Hematocrit [Volume Fraction] of Blood by Automated count 36.0-48.0[facility] CenterHemoglobin [Mass/volume] in Bloodon 11-60-4394Bvztnxnfsu (Bld) [Mass/Vol]Hemoglobin [Mass/volume] in Blood12.0-16.0 [facility] CenterINR in Platelet poor plasma by Coagulation assayon 08-42-8120EOV Coag (PPP) [Relative time]INR in Platelet poor plasma by Coagulation assayUniversity Hospitals Beachwood Medical CenterComment on above:DESIRED INR:2.0-3.0 CONDITIONS NOT LISTED BELOW2.5-3.5 FOR PROSTHETIC HEART VALVE REPLACEMENT2.5-3.5 RECURRENT THROMBOSISLaboratory - Chemistry and Chemistry - challengeon 79-26-8120Wfkozfd [Mass/Vol]3.7 g/dL3.4-5.0[facility] CenterALP [Catalytic activity/Vol]91 U/T74-740AvmfjugulUniversity Hospitals Beachwood Medical CenterALT [Catalytic activity/Vol]20 U/A43-17WybxsjbpgUniversity Hospitals Beachwood Medical Center AST [Catalytic activity/Vol]20 U/D62-43ReqklyvliUniversity Hospitals Beachwood Medical Center Bilirubin [Mass/Vol]0.4 mg/dL0.2-1.0[facility] CenterCalcium [Mass/Vol]10.0 mg/dL8.5-10.1FPremier Health Miami Valley HospitalChloride [Moles/Vol]102 mmol/R88-548CneuqfphvUniversity Hospitals Beachwood Medical CenterCO2 [Moles/Vol]28.1 mmol/L21.0-32.0[facility] CenterCreatinine [Mass/Vol]0.81 mg/dL 0.55-1.02[facility] CenterGFR/1.73 sq M.predicted MDRD (S/P/Bld) [Vol rate/Area]mL/min/{1.73_m2}>=60 mL/min/1.73m 2FPremier Health Miami Valley HospitalGlucose [Mass/Vol]146 mg/uOIbyo44-902DuevfccqnUniversity Hospitals [facility] Center Magnesium [Mass/Vol]1.7 mg/dLLow1.8-2.4FPremier Health [facility] Hospital Natriuretic peptide B (Bld) [Mass/Vol]56.0 pg/mL<=900.0[facility] CenterPotassium [Moles/Vol]4.7 mmol/L3.5-5.1FPremier Health Miami Valley HospitalProtein [Mass/Vol]7.4 g/dL6.4-8.2FTrinity Health Systemodium [Moles/Vol]138 mmol/H359-351XucsiavagUniversity Hospitals Beachwood Medical CenterUrea nitrogen [Mass/Vol]21.0 mg/dLHigh7.0-18.0[facility] CenterUrea nitrogen/Creatinine [Mass ratio]25.9 mg/mgUniversity Hospitals Beachwood [facility] Center Laboratory - Hematology and Cell countson 82-46-1608Iskoxncj granulocytes/100 WBC (Bld)0.7 %High0.0-0.5FPremier Health Miami Valley HospitalLaboratory - Microbiology and Antimicrobial susceptibilityon 00-81-7968RUBA-CoV-2 (COVID-19) RNA ARIADNA+probe Ql (Unsp spec)NegativeNEGATIVEUniversity Hospitals Beachwood [facility] Center Comment on above:This test has not been [...] nucleated erythrocytes in Blood by Automated counon 29-20-3321IAJ corrected for nucl RBC Auto (Bld) [#/Vol]Leukocytes [#/volume] corrected for nucleated erythrocytes in Blood by Automated coun4.0-11.0[facility] Lymphocytes Auto (Bld) [#/Vol]on 51-82-0977Apqeydmzrsm (Bld) [#/Vol]Lymphocytes [#/volume] in Blood by Automated count1.2-3.8[facility] Lymphocytes/100 WBC Auto (Bld)on 09-22-2528Mnexpgnzybz/100 WBC (Bld) Lymphocytes/100 leukocytes in Blood by Automated count20.5-60.0[facility] Auto (RBC) [Entitic mass]on 95-31-1820MOL (RBC) [Entitic mass]MCH [Entitic mass] by Automated count26.7-34.0[facility] Auto (RBC) [Mass/Vol]on 50-01-2825IOAU (RBC) [Mass/Vol]MCHC [Mass/volume] by Automated count29.9-35.2FPremier Health Miami Valley HospitalMCV Auto (RBC) [Entitic vol]on 48-73-8686KMA (RBC) [Entitic vol]MCV [Entitic volume] by Automated count81.0-99.0[facility] CenterMonocytes Auto (Bld) [#/Vol]on 19-53-5705Tumescdpq (Bld) [#/Vol]Automated blood monocyte count0.3-0.8 [facility] CenterMonocytes/100 WBC Auto (Bld)on 08-05-2024 Monocytes/100 WBC (Bld)Automated monocyte %1.7-12.0[facility] CenterNeutrophils Auto (Bld) [#/Vol]on 46-42-2195Vgdaioaaqto (Bld) [#/Vol] Neutrophils [#/volume] in Blood by Automated count1.4-6.5FPremier Health Miami Valley HospitalNeutrophils/100 WBC Auto (Bld)on 20-01-5563Numruygbrlw/100 WBC (Bld)Automated neutrophil %43.0-75.0[facility] CenterNo Panel Informationon 42-24-2072Saycpecv I High Sensitivity7.6 pg/mL4.0-51.3FPremier Health Miami Valley HospitalComment on above:CUT-OFF POINTS HAVE BEEN ESTABLISHED [...] DIAGNOSTIC AND CLINICAL INFORMATION.Eosinophils # (Auto)0.5 10 3/uL0.0-0.7FPremier Health Miami Valley HospitalImmature Granulocyte # (Auto)0.07 10 3/uLHigh0.00-0.03[facility] CenterPlatelet mean volume Auto (Bld) [Entitic vol]on 93-85-1580Pgglptpl mean volume (Bld) [Entitic vol]Platelet mean volume [Entitic volume] in Blood by Automated count9.5-13.5 [facility] CenterPlatelets Auto (Bld) [#/Vol]on 08-05-2024 Platelets (Bld) [#/Vol]Platelets [#/volume] in Blood by Automated falsh591-516 [facility] CenterProthrombin time (PT)on 62-16-2790EH Coag (PPP) [Time]Prothrombin time (PT)9.0-11.6FPremier Health Miami Valley HospitalRBC Auto (Bld) [#/Vol]on 79-02-0336YVD (Bld) [#/Vol]Erythrocytes [#/volume] in Blood by Automated count4.20-5.40[facility] Centererum or plasma albumin/globulin mass ratioon 23-64-1116Qkgmjiz/Globulin [Mass ratio]Serum or plasma albumin/globulin mass ratioFairfield Medical Centererum or plasma anion gap determinationon 55-70-3990Diqei gap [Moles/Vol]Serum or plasma anion gap determinationUniversity Hospitals Beachwood Medical CenterBlood Urea Nitrogenon 19-84-2299Afbh nitrogen [Mass/Vol]20 mg/dLNormal7-25The [facility] Physician GroupComment on above:Order Comment: STAT FOR CTPerformed By: #### BUN, CREAT #### [place] [address] USACT abdomen pelvis w conon 43-86-0967GT abdomen pelvis w [facility] [place] [address] [place] [address] CT Scan Report Signed Patient: Canelo Pathak MR#: [id number] 4 : 1965 Acct:[id number] Age/Sex: 58 / F ADM Date: 07/30/24 Loc: CT Room: Type: [facility] Attending Dr: Carol Alegria DO Copies [...] Cameron Worthy M.D.07/30/2024 1:18 PM Dictation Location: [place] [address] Transcribed By: [facility] 07/30/24 1318 Dictated By: Cameron Worthy MD 07/30/24 1314 Signed By: 07/30/24 1318NoGranville Medical Center Physician GroupCreatinpiedmont [facility] 07-30-2024 Creatinine [Mass/Vol]0.85 mg/dLNormal0.60-1.20[facility] Comment on above:Order Comment: STAT FOR CTPerformed By: #### BUN, CREAT #### [facility] [address] [place] [address] USAGFR/1.73 sq M.predicted MDRD (S/P/Bld) [Vol rate/Area] mL/min/{1.73_m2}NormalThe [facility] Physician GroupComment on above:Order Comment: STAT FOR CTResult Comment: PERFORMED BY: [place] [address] PATHOLOGIST [employer]INE SERVICE MANAGER JERRI ROMERO M.D.Performed By: #### BUN, CREAT #### [facility] [address] [place] [address] USACreatinine [Mass/volume] in Serum or PlasmaOrdered By: Carol Alegria on 28-12-0734Rmuucmyzky [Mass/Vol]Creatinine [Mass/volume] in Serum or Plasma0.60-1.20[facility] CenterNo Panel InformationOrdered By: Carol Alegria on 72-26-8261Pwmbyeutm GFR (CKD-EPI)> 60.0 mL/MinUniversity Hospitals Beachwood Medical CenterPharmacy Creatinine Clearance (ChemN/AFPremier Health Miami Valley HospitalUrea nitrogen [Mass/volume] in Serum or PlasmaOrdered By: Carol Alegria on 43-09-2143Jrtq nitrogen [Mass/Vol]Urea nitrogen [Mass/volume] in Serum or Plasma7-[facility] CenterBasophils Auto (Bld) [#/Vol]on 19-99-5747Pviavjwxk (Bld) [#/Vol]0.1 10 3/uL0.0-0.1FPremier Health Miami Valley HospitalBasophils (Bld) [#/Vol]Automated basophil count0.0-0.1FPremier Health Miami Valley HospitalBaphils/100 WBC Auto (Bld)on 73-67-3748Ovpoviqiv/100 WBC (Bld)0.9 %0.2-2.0[facility] CenterBasophils/100 WBC (Bld) Automated basophil %0.2-2.0[facility] CenterCholesterol in LDL Calc [Mass/Vol]on 12-58-5834Ojigvnylfzs in LDL [Mass/Vol]87.0 mg/dLUniversity Hospitals Beachwood Medical CenterComment on above:<100 mg/dl ULJTSXD206-909 mg/dl NEAR OR ABOVE OMWNWZV070-490 mg/dl BORDERLINE RSRO224-453 mg/dl HIGH>190 mg/dl VERY HIGH Cholesterol in LDL [Mass/Vol]Cholesterol in LDL [Mass/volume] in Serum or Plasma by calculationUniversity Hospitals Beachwood Medical CenterComment on above:<100 mg/dl ODOINNV124-886 mg/dl NEAR OR ABOVE QEUBVRE760-731 mg/dl BORDERLINE VJQN729-039 mg/dl HIGH>190 mg/dl VERY HIGHCholesterol in VLDL Calc [Mass/Vol]on 03-20-2024 Cholesterol in VLDL [Mass/Vol]15.0 mg/dLUniversity Hospitals Beachwood Medical Center Cholesterol in VLDL [Mass/Vol]Cholesterol in VLDL [Mass/volume] in Serum or Plasma by calculationUniversity Hospitals Beachwood Medical CenterEosinophils/100 WBC Auto (Bld)on 99-70-5083Zopfyumpxcw/100 WBC (Bld)3.3 %0.9-7.0[facility] [facility] CenterEosinophils/100 WBC (Bld)Automated eosinophil %0.9-7.0[facility] CenterErythrocyte distribution width Auto (RBC) [Ratio]on 48-62-3722Qcjpnrxhrul distribution width (RBC) [Ratio]12.4 %11.0-15.0[facility] CenterErythrocyte distribution width (RBC) [Ratio]Erythrocyte distribution width [Ratio] by Automated count11.0-15.0[facility] CenterEstimated glomerular filtration rate (GFR) non- Americanon 98-57-1887ESF/1.73 sq M.predicted among non-blacks MDRD (S/P/Bld) [Vol rate/Area]mL/min/{1.73_m2}>=60 mL/min/1.73m 2FPremier Health [facility] GFR/1.73 sq M.predicted among non-blacks MDRD (S/P/Bld) [Vol rate/Area]Estimated glomerular filtration rate (GFR) non->=60 mL/min/1.73m 2 [facility] CenterGlobulin Calc (S) [Mass/Vol]on 03-20-2024 Globulin (S) [Mass/Vol]3.3 g/dLUniversity Hospitals [facility]wood Medical CenterGlobulin (S) [Mass/Vol]Serum globulin measurement by calculation (mass/volume)[facility] CenterGlucose mean value [Mass/volume] in Blood Estimated from glycated hemoglobinon 00-01-8696Yqigkfp glucose Estimated from glycated hemoglobin (Bld) [Mass/Vol]140 mg/dLUniversity Hospitals [facility]wood Medical CenterAverage glucose Estimated from glycated hemoglobin (Bld) [Mass/Vol]Glucose mean value [Mass/volume] in Blood Estimated from glycated hemoglobinUniversity Hospitals [facility]wood Medical CenterHematocrit Auto (Bld) [Volume fraction]on 79-65-8573Gvjzmouzfj (Bld) [Volume fraction]39.9 %36.0-48.0[facility] Hematocrit (Bld) [Volume fraction]Hematocrit [Volume Fraction] of Blood by Automated count36.0-48.0[facility] CenterHemoglobin [Mass/volume] in Bloodon 71-96-5806Vnnfawvnid (Bld) [Mass/Vol]13.2 g/dL12.0-16.0 [facility] CenterHemoglobin (Bld) [Mass/Vol]Hemoglobin [Mass/volume] in Blood12.0-16.0[facility] CenterLaboratory - Chemistry and Chemistry - challengeon 95-58-5150Ctyvaxf [Mass/Vol]3.3 g/dLLow 3.4-5.0[facility] CenterALP [Catalytic activity/Vol]72 U/L46-116 [facility] CenterALT [Catalytic activity/Vol]22 U/L14-59 [facility] CenterAST [Catalytic activity/Vol]11 U/SWkc46-09 [facility] CenterBilirubin [Mass/Vol]0.4 mg/dL0.2-1.0[facility] CenterCalcium [Mass/Vol]9.0 mg/dL8.5-10.1FPremier Health Miami Valley HospitalChloride [Moles/Vol]105 mmol/M36-223HwkqwqitsUniversity Hospitals [facility] Medical CenterCholesterol [Mass/Vol]174 mg/dL<=200[facility] Cholesterol in HDL [Mass/Vol]72 mg/iLRdfa43-79McukcrcbnUniversity Hospitals [facility] Comment on above:> or =60 mg/dl - LOW CARDIOVASCULAR RISK<40 mg/dl - HIGH CARDIOVASCULAR RISKCO2 [Moles/Vol]28.6 mmol/L21.0-32.0[facility] CenterCreatinine [Mass/Vol]0.89 mg/dL0.55-1.02[facility] Free T4 [Mass/Vol]1.53 ng/dLHigh0.76-1.46[facility] GFR/1.73 sq M.predicted MDRD (S/P/Bld) [Vol rate/Area]mL/min/{1.73_m2}>=60 mL/min/1.73m 2FPremier Health Miami [facility] HospitalGlucose [Mass/Vol]119 mg/dLHigh 74-106[facility] CenterPotassium [Moles/Vol]4.1 mmol/L3.5-5.1 [facility] CenterProtein [Mass/Vol]6.6 g/dL6.4-8.2FTrinity Health Systemodium [Moles/Vol]143 mmol/J819-715OvbgflffnUniversity Hospitals [facility] Medical CenterTriglyceride [Mass/Vol]75 mg/dL<=150[facility] CenterTSH Qn1.000 m[IU]/L0.358-3.740[facility] CenterUrea nitrogen [Mass/Vol]18.0 mg/dL7.0-18.0[facility] CenterUrea nitrogen/Creatinine [Mass ratio]20.2 mg/mgUniversity Hospitals [facility] Laboratory - Hematology and Cell countson 41-30-0520IsW2r (Bld) [Mass fraction] 6.5 %High4.5-6.2FPremier Health Miami Valley HospitalComment on above:ADA RECOMMENDED LIMIT 4.0 - 6.0ADA THERAPEUTIC TARGET < 7.0ACTION SUGGESTED> 7.0 Immature granulocytes/100 WBC (Bld)0.2 %0.0-0.5FPremier Health [facility] Hospital Leukocytes [#/volume] corrected for nucleated erythrocytes in Blood by Automated counon 25-17-4326ELB corrected for nucl RBC Auto (Bld) [#/Vol]8.5 10 3/uL 4.0-11.0[facility] CenterWBC corrected for nucl RBC Auto (Bld) [#/Vol]Leukocytes [#/volume] corrected for nucleated erythrocytes in Blood by Automated coun4.0-11.0[facility] CenterLymphocytes Auto (Bld) [#/Vol]on 25-33-5525Eqgywxnanqs (Bld) [#/Vol]2.3 10 3/uL1.2-3.8[facility] CenterLymphocytes (Bld) [#/Vol]Lymphocytes [#/volume] in Blood by Automated count1.2-3.8[facility] CenterLymphocytes/100 WBC Auto (Bld)on 06-79-9584Udusozwslww/100 WBC (Bld)26.5 %20.5-60.0[facility] CenterLymphocytes/100 WBC (Bld)Lymphocytes/100 leukocytes in Blood by Automated count20.5-60.0[facility] Auto (RBC) [Entitic mass]on 10-14-4980YEB (RBC) [Entitic mass]31.0 pg26.7-34.0[facility] (RBC) [Entitic mass]MCH [Entitic mass] by Automated count26.7-34.0[facility] HospitalHC Auto (RBC) [Mass/Vol]on 46-49-2686AMLS (RBC) [Mass/Vol]33.1 g/dL29.9-35.2FChildren's Hospital for RehabilitationHC (RBC) [Mass/Vol]MCHC [Mass/volume] by Automated count29.9-35.2 [facility] HospitalV Auto (RBC) [Entitic vol]on 36-53-0119PTH (RBC) [Entitic vol]93.7 fL81.0-99.0[facility] HospitalV (RBC) [Entitic vol]MCV [Entitic volume] by Automated count81.0-99.0[facility] CenterMonocytes Auto (Bld) [#/Vol]on 01-16-7841Tawpzzouk (Bld) [#/Vol] 0.6 10 3/uL0.3-0.8[facility] CenterMonocytes (Bld) [#/Vol] Automated blood monocyte count0.3-0.8[facility] Monocytes/100 WBC Auto (Bld)on 19-65-1760Qlkdbvxiv/100 WBC (Bld)6.4 %1.7-12.0 [facility] CenterMonocytes/100 WBC (Bld)Automated monocyte % 1.7-12.0[facility] CenterNeutrophils Auto (Bld) [#/Vol]on 22-06-1704Zbdzmgqtbpk (Bld) [#/Vol]5.4 10 3/uL1.4-6.5FPremier Health Miami Valley HospitalNeutrophils (Bld) [#/Vol]Neutrophils [#/volume] in Blood by Automated count1.4-6.5FPremier Health Miami Valley HospitalNeutrophils/100 WBC Auto (Bld)on 12-45-5560Tsjmcbpwldh/100 WBC (Bld)62.7 %43.0-75.0[facility] CenterNeutrophils/100 WBC (Bld)Automated neutrophil %43.0-75.0[facility] CenterNo Panel Informationon 33-33-646532633356-Yviasgk Vitamin D Total36.0 ng/mLUniversity Hospitals [facility]wood Medical CenterComment on above:<20 ng/mL Vit D -<30 ng/mL Vit D aexsoebyxwkk33-822 ng/mL Vit D sufficient>100 ng/mL Potential ToxicityEosinophils # (Auto)0.3 10 3/uL0.0-0.7FPremier Health Miami Valley HospitalImmature Granulocyte # (Auto)0.02 10 3/uL0.00-0.03[facility] CenterTotal Morslwilhoitkfss33 ng/kK62-140ErshasnryUniversity Hospitals [facility]wood Medical CenterComment on above:Performed at: [facility] [address] [id number] Director: Giuseppe Newell PhD, Phone: [phone] Platelet mean volume Auto (Bld) [Entitic vol]on 94-09-2122Olmrphgp mean volume (Bld) [Entitic vol]9.5 fL9.5-13.5FPremier Health Miami Valley HospitalPlatelet mean volume (Bld) [Entitic vol]Platelet mean volume [Entitic volume] in Blood by Automated count9.5-13.5FPremier Health Miami Valley HospitalPlatelets Auto (Bld) [#/Vol]on 34-75-5625Osqlnsnod (Bld) [#/Vol]364 10 3/zV753-128PyfpshtyeUniversity Hospitals [facility]wood Medical CenterPlatelets (Bld) [#/Vol]Platelets [#/volume] in Blood by Automated -744YpowhqryxUniversity Hospitals [facility]wood Medical CenterRBC Auto (Bld) [#/Vol]on 03-20-2024 RBC (Bld) [#/Vol]4.26 10 6/uL4.20-5.40[facility] CenterRBC (Bld) [#/Vol]Erythrocytes [#/volume] in Blood by Automated count4.20-5.40[facility] Centererum or plasma albumin/globulin mass ratioon 03-20-2024 Albumin/Globulin [Mass ratio]1.0 {ratio}[facility] Albumin/Globulin [Mass ratio]Serum or plasma albumin/globulin mass ratio [facility] Centererum or plasma anion gap determinationon 30-62-0095Gmvam gap [Moles/Vol]13.5 mmol/LFPremier Health Miami Valley HospitalAnion gap [Moles/Vol]Serum or plasma anion gap determinationFairfield Medical Centererum or plasma total cholesterol/high density lipoprotein (HDL) cholesterol mass constantin 80-14-9729Hiigytjhbqa.total/Cholesterol in HDL [Mass ratio]2.4 {ratio}[facility] CenterComment on above:3.3 - 4.4 LOW RISK4.4 - 7.1 AVERAGE RISK7.1 - 11.0 MODERATE RISK>11.0 HIGH RISK Cholesterol.total/Cholesterol in HDL [Mass ratio]Serum or plasma total cholesterol/high density lipoprotein (HDL) cholesterol mass [facility] CenterComment on above:3.3 - 4.4 LOW RISK4.4 - 7.1 AVERAGE RISK7.1 - 11.0 MODERATE RISK>11.0 HIGH RISKGastroenterology Office/Clinic Noteon 69-94-1876Wsgtlsgttvnjnexc Office/Clinic NoteChief Complaint Followup for abd pain, chest pain, vomiting, diarrhea History of Present Illness Patient presents to GI clinic for a followup for abdominal pain radiating to chest pain, vomiting and diarrhea. KATIANA was 06/26/22 Continues to have persistent acid reflux despite Nexium 40 mg daily. Has anywhere from 5-10 stools per day type on [place] stool scale form, urgent and explosive to [...] water, # 120 tabs, 0 Refill(s), Pharmacy: [facility]/pharmacy #[id number] esomeprazole, 1 caps, Oral, BID, # 180 caps, 0 Refill(s), Pharmacy: [facility]/pharmacy #[id number] ondansetron, 1 tabs, Oral, q8hr, PRN, # 60 tabs, 0 Refill(s), Pharmacy: [facility]/pharmacy #[id number] polyethylene glycol 3350 with electrolytes, See Instructions, for colonoscopy prep, # 4,000 mL, 0 Refill(s), Pharmacy: [facility]/pharmacy #[id number] 1. Diarrhea s/p cholecystectomy - check CBC/CMP/ttg [...] of adequate bowel prep and need for tank wagon driver to accompany day of procedure, verbalizes [...] Ongoing Asthma Endometriosis Fibromyalg (more content not included)...[facility]XR hips BI 4V adulton 90-74-2579CL hips BI 4V [facility] Main [address] [address] XRay Report Signed Patient: Canelo Pathak MR#: [id number] 4 : 1965 Acct:[id number] Age/Sex: 58 / F ADM Date: 12/05/23 Loc: XD Room: Type: [facility] CLI Attending Dr: Logan Brown MD [...] Omid Seals M.D.12/05/2023 5:09 PM Dictation Location: [place] [address] Transcribed By: [facility] 12/05/231708 Dictated By: Omid Seals DO 12/05/231707 Signed By: 12/05/23 1709[facility] Physician GroupXR lumbar spine AP/LAT/FLX/EXTon 21-89-4418OC lumbar spine AP/LAT/FLX/EXTST. [facility] Main [place] [address] [place] [address] XRay Report Signed Patient: Canelo Pathak MR#: [id number] 4 : 1965 Acct:[id number] Age/Sex: 58 / F ADM Date: 12/05/23 Loc: XD Room: Type: [facility] CLI Attending Dr: Logan Brown MD [...] Omid Seals M.D.12/05/2023 5:08 PM Dictation Location: [facility]08 Transcribed By: [facility] 12/05/231707 Dictated By: Omid Seals DO 12/05/231705 Signed By: 12/05/231707[facility] Physician GroupEstimated glomerular filtration rate (GFR) non- Americanon 34-94-0140YSC/1.73 sq M.predicted among non- blacks MDRD (S/P/Bld) [Vol rate/Area]mL/min/{1.73_m2}>=60[facility] CenterLaboratory - Chemistry and Chemistry - challengeon 10-25-2023 Calcium [Mass/Vol]9.3 mg/dL8.5-10.1FPremier Health Miami Valley HospitalChloride [Moles/Vol]103 mmol/M89-143QaprgebnvUniversity Hospitals [facility] Medical CenterCO2 [Moles/Vol]29.7 mmol/L21.0-32.0[facility] CenterCreatinine [Mass/Vol]0.88 mg/dL 0.55-1.02[facility] CenterFree T4 [Mass/Vol]1.33 ng/dL0.76-1.46 [facility] CenterGFR/1.73 sq M.predicted MDRD (S/P/Bld) [Vol rate/Area]mL/min/{1.73_m2}>=60[facility] CenterGlucose [Mass/Vol]121 mg/aTMaog13-012GyxfmvevyUniversity Hospitals [facility] CenterPotassium [Moles/Vol]4.4 mmol/L3.5-5.1FTrinity Health Systemodium [Moles/Vol] 140 mmol/D861-477XdqcqjmciUniversity Hospitals [facility] Medical CenterTSH Qn5.994 m[IU]/LHigh 0.358-3.740[facility] CenterUrea nitrogen [Mass/Vol]18.0 mg/dL 7.0-18.0[facility] CenterUrea nitrogen/Creatinine [Mass ratio] 20.5 mg/mgUniversity Hospitals [facility] Medical CenterNo Panel Informationon 10-25-2023 Total Bcjugpfmqdpqhach015 ng/zU76-431CqiywvukyUniversity Hospitals [facility]wood Medical CenterComment on above:Performed at: [facility] Lab[address] [id number] Director: Giuseppe Newell PhD, Phone: [phone] or plasma anion gap determinationon 21-94-1869Lvvzl gap [Moles/Vol]11.7 mmol/LFPremier Health Miami Valley HospitalPatient Correspondenceon 67-64-6270Vatodrc Correspondence [id number]#1.00TIFFOhio Valley HospitalMRI HEAD/BRAIN WO/W CONTRon 17-15-9084[place] [address] Magnetic Resonance Report Signed Patient: CANELO PATHAK MR#: [id number] : 1965 Acct:[id number] Age/Sex: 58 / F ADM Date: 10/09/23 Loc: MRI Attending Dr: Jennie Jiang M.D. Ordering Physician: Jennie Jiang M.D. Date of Service: 10/09/23 Procedure(s): MR head/brain wo/w con Accession Number(s): [id number] cc: JEFF JON ; Jennie Jiang M.D. [place] [address] Patient Name: CANELO PATHAK MRN: [id number] date: 1965 Sex: F Assigned Patient Location: MRI Current Patient Location: MRI Accession/Order Number: [id number] Exam Date: 10/09/2023 12:50 Report Date: 10/09/2023 [...] M.D. Signed By: 10/09/232117 DD/ 14 TD/TT: Tar Chaser:TBHRadiology, Radiologist, - 10/09/2023 [place] [address] Magnetic Resonance Report Signed Patient: CANELO PATHAK MR#: [id number] : 1965 Acct:[id number] Age/Sex: 58 / F ADM Date: 10/09/23 Loc: MRI Attending Dr: Jennie Jiang M.D. Ordering Physician: Jennie Jiang M.D. Date of Service: 10/09/23 Procedure(s): MR head/brain wo/w con Accession Number(s): [id number] cc: JEFF JON ; Jennie Jiang M.D. [facility] [place] [id number] Patient Name: CANELO PATHAK MRN: [id number] date: 1965 Sex: F Assigned Patient Location: MRI Current Patient Location: MRI Accession/Order Number: [id number] Exam Date: 10/09/2023 12:50 Report Date: 10/09/2023 [...] M.D. Signed By: 10/09/232117 DD/ 14 TD/TT: Tar Chaser: SIGIFREDO HealthcareRadiology Study observation (narrative)[facility] CenterMRI HEAD/BRAIN WO/W CONTROrdered By: Radiologist Radiology on 61-48-2571LL[employer] Work Phone: ct Internal auditory canal W contrast Marci 09-04-[address] [address] [address] Scan Report Signed Patient: CANELO PATHAK MR#: [id number] : 1965 Acct:[id number] Age/Sex: 57 / F ADM Date: 09/04/23 Loc: CT Attending Dr: Jennie Jiang M.D. Ordering Physician: Jennie Jiang M.D. Date of Service: 09/04/23 Procedure(s): CT int auditory canals w con Accession Number(s): [id number] cc: JEFF JON [place] [address] [place] [id number] Patient Name: CANELO PATHAK MRN: [facility]:[id number] date: 1965 Sex: F Assigned Patient Location: CT Current Patient Location: CT Accession/Order Number: [id number] Exam Date: 09/04/2023 13:20 Report Date: 09/04/2023 [...] M.D. Signed By: 09/04/231653 DD/ 51 TD/TT: Tar Chaser:MELISAHRadiology, Radiologist, - 09/04/2023 [place] [address] CT Scan Report Signed Patient: CANELO PATHAK MR#: [id number] : 1965 Acct:[id number] Age/Sex: 57 / F ADM Date: 09/04/23 Loc: CT Attending Dr: Jennie Jiang M.D. Ordering Physician: Jennie Jiang M.D. Date of Service: 09/04/23 Procedure(s): CT int auditory canals w con Accession Number(s): [id number] cc: JEFF JON [place] [address] Patient Name: CANELO PATHAK MRN: [id number] date: 1965 Sex: F Assigned Patient Location: CT Current Patient Location: CT Accession/Order Number: [id number] Exam Date: 09/04/2023 13:20 Report Date: 09/04/2023 [...] M.D. Signed By: 09/04/231653 DD/ 51 TD/TT: Tar Chaser: SIGIFREDO HealthcareRadiology Study observation (narrative)[facility] HealthcareCT Internal auditory canal W contrast IVOrdered By: Radiologist Radiology on 29-69-2434CFQP [employer] Work Phone: automated epithelial cells count in urine sediment (number/area)on 46-43-2618Ucurlcabxj cells Auto (Urine sed) [#/Area]RARE #/LPF NONE/RAREUniversity Hospitals Beachwood Medical CenterAutomated leukocytes count in urine sediment (number/area)on 87-73-6817HJU Auto (Urine sed) [#/Area]0-2 #/HPF0-2 [facility] CenterAutomated urine specific gravity by refractometryon 56-33-6238Ddkykjdz gravity Refractometry automated (U) [Rel density]>=1.0301.005-1.025[facility] CenterBasophils Auto (Bld) [#/Vol]on 11-61-5650Mrxyaunab (Bld) [#/Vol]0.1 10 3/uL0.0-0.1FPremier Health Miami Valley HospitalBasophils/100 WBC Auto (Bld)on 93-97-8754Cdfanazwi/100 WBC (Bld) 1.4 %0.2-2.0[facility] CenterBilirubin Auto test strip (U) [Mass/Vol]on 81-27-9650Qsuzugsph (U) [Mass/Vol]NegativeNEGATIVEUniversity Hospitals Beachwood Medical CenterCast typing in urine sediment by light microscopyon 28-71-5513Wtvhq LM Nom (Urine sed)NONE SEEN #/LPFNONE SEENUniversity Hospitals [facility] Medical CenterCholesterol in LDL Calc [Mass/Vol]on 96-25-6442Jypajvjhlfv in LDL [Mass/Vol]101.0 mg/dLUniversity Hospitals Beachwood Medical CenterComment on above:<100 mg/dl OLMQDYT184-392 mg/dl NEAR OR ABOVE HORUPZF539-702 mg/dl BORDERLINE MDWJ904-401 mg/dl HIGH>190 mg/dl VERY HIGHCholesterol in VLDL Calc [Mass/Vol]on 19-74-8495Poevwfkilbc in VLDL [Mass/Vol]25.0 mg/dLUniversity Hospitals Beachwood Medical CenterColor Auto (U)on 66-63-7860Sggkb (U)YELLOWYELLOWUniversity Hospitals [facility]wood Medical CenterEosinophils/100 WBC Auto (Bld)on 70-72-3702Bpghrcyicoz/100 WBC (Bld)5.2 % 0.9-7.0[facility] CenterErythrocyte distribution width Auto (RBC) [Ratio]on 38-31-5834Kyrmerlplaq distribution width (RBC) [Ratio]12.1 % 11.0-15.0[facility] CenterEstimated glomerular filtration rate (GFR) non- Americanon 66-35-9118FBE/1.73 sq M.predicted among non-blacks MDRD (S/P/Bld) [Vol rate/Area]mL/min/{1.73_m2}>=60[facility] CenterGlobulin Calc (S) [Mass/Vol]on 11-47-5100Jrykpxis (S) [Mass/Vol]3.3 g/dL [facility] CenterGlucose mean value [Mass/volume] in Blood Estimated from glycated hemoglobinon 13-76-5168Zkogngg glucose Estimated from glycated hemoglobin (Bld) [Mass/Vol]143 mg/dLUniversity Hospitals [facility] Center Hematocrit Auto (Bld) [Volume fraction]on 35-93-2856Svyqnsvuhk (Bld) [Volume fraction]41.2 %36.0-48.0[facility] CenterHemoglobin [Mass/volume] in Bloodon 75-02-5215Dnokbtmoyy (Bld) [Mass/Vol]13.6 g/dL12.0-16.0 [facility] CenterKetones Auto test strip (U) [Mass/Vol]on 59-40-3837Twvtgfy (U) [Mass/Vol]NegativeNEGATIVEUniversity Hospitals [facility] Medical CenterLaboratory - Chemistry and Chemistry - challengeon 23-16-4163Wcehted [Mass/Vol]3.8 g/dL3.4-5.0[facility] CenterALP [Catalytic activity/Vol]72 U/B49-860MdgksmghtUniversity Hospitals [facility] Medical CenterALT [Catalytic activity/Vol]25 U/B60-86CwrcnrlekUniversity Hospitals [facility] Medical CenterAST [Catalytic activity/Vol]14 U/E02-56MgocfndnvUniversity Hospitals [facility] Medical CenterBilirubin [Mass/Vol]0.5 mg/dL0.2-1.0[facility] CenterCalcium [Mass/Vol]9.1 mg/dL 8.5-10.1FPremier Health Miami Valley HospitalChloride [Moles/Vol]103 mmol/L98-107 [facility] CenterCholesterol [Mass/Vol]193 mg/dL<=200[facility] CenterCholesterol in HDL [Mass/Vol]67 mg/bH99-41IsngalshtUniversity Hospitals [facility] Medical CenterComment on above:> or =60 mg/dl - LOW CARDIOVASCULAR RISK<40 mg/dl - HIGH CARDIOVASCULAR RISKCO2 [Moles/Vol]28.7 mmol/L21.0-32.0 [facility] CenterCreatinine [Mass/Vol]0.77 mg/dL0.55-1.02 [facility] CenterFree T4 [Mass/Vol]1.11 ng/dL0.76-1.46[facility] CenterGFR/1.73 sq M.predicted MDRD (S/P/Bld) [Vol rate/Area] mL/min/{1.73_m2}>=60[facility] CenterGlucose [Mass/Vol]117 mg/dL 74-106[facility] CenterPotassium [Moles/Vol]4.2 mmol/L3.5-5.1 [facility] CenterProtein [Mass/Vol]7.1 g/dL6.4-8.2FTrinity Health Systemodium [Moles/Vol]142 mmol/E111-332WoxjnwdpzUniversity Hospitals [facility] Medical CenterTriglyceride [Mass/Vol]125 mg/dL<=150[facility] CenterTSH Qn18.751 m[IU]/L0.358-3.740[facility] CenterUrea nitrogen [Mass/Vol]19.0 mg/dL7.0-18.0[facility] CenterUrea nitrogen/Creatinine [Mass ratio]24.7 mg/mgUniversity Hospitals [facility] Center Laboratory - Hematology and Cell countson 56-44-4153MqR7o (Bld) [Mass fraction] 6.6 %4.5-6.2FPremier Health Miami Valley HospitalComment on above:ADA RECOMMENDED LIMIT 4.0 - 6.0ADA THERAPEUTIC TARGET < 7.0ACTION SUGGESTED> 7.0Immature granulocytes/100 WBC (Bld)0.3 %0.0-0.5FPremier Health Miami Valley Hospital Leukocytes [#/volume] corrected for nucleated erythrocytes in Blood by Automated counon 84-03-5541KXH corrected for nucl RBC Auto (Bld) [#/Vol]7.4 10 3/uL 4.0-11.0[facility] CenterLymphocytes Auto (Bld) [#/Vol]on 20-13-1830Dhkhgskzzwc (Bld) [#/Vol]2.2 10 3/uL1.2-3.8[facility] CenterLymphocytes/100 WBC Auto (Bld)on 01-52-0912Vxjasmqahya/100 WBC (Bld)29.7 % 20.5-60.0[facility] HospitalH Auto (RBC) [Entitic mass]on 37-02-9564PFA (RBC) [Entitic mass]31.3 pg26.7-34.0[facility] CenterMCHC Auto (RBC) [Mass/Vol]on 86-10-1095RPTO (RBC) [Mass/Vol]33.0 g/dL 29.9-35.2FPremier Health Miami Valley HospitalMCV Auto (RBC) [Entitic vol]on 32-28-8781IHZ (RBC) [Entitic vol]94.7 fL81.0-99.0[facility] CenterMonocytes Auto (Bld) [#/Vol]on 92-19-5114Mpglsjdsk (Bld) [#/Vol]0.5 10 3/uL0.3-0.8[facility] CenterMonocytes/100 WBC Auto (Bld)on 32-32-1302Hezyoltrg/100 WBC (Bld)6.4 %1.7-12.0[facility] Mucus LM Ql (Urine sed)on 56-59-9073Namit Ql (Urine sed)MODERATENONE SEEN [facility] CenterNeutrophils Auto (Bld) [#/Vol]on 08-23-2023 Neutrophils (Bld) [#/Vol]4.2 10 3/uL1.4-6.5FPremier Health Miami Valley Hospital Neutrophils/100 WBC Auto (Bld)on 91-27-7437Gylvbeghcmg/100 WBC (Bld)57.0 % 43.0-75.0[facility] CenterNo Panel Informationon - Hydroxy Vitamin D Total35.2 ng/mLUniversity Hospitals Beachwood Medical CenterComment on above:<20 ng/mL Vit D yxpricwua50-<30 ng/mL Vit D -698 ng/mL Vit D sufficient>100 ng/mL Potential ToxicityEosinophils # (Auto)0.4 10 3/uL0.0-0.7 [facility] CenterFree Triiodothyronine1.94 pg/mL2.18-3.98 [facility] CenterImmature Granulocyte # (Auto)0.02 10 3/uL 0.00-0.03[facility] CenterPlatelet mean volume Auto (Bld) [Entitic vol]on 86-59-0687Vwqyxdnl mean volume (Bld) [Entitic vol]9.7 fL9.5-13.5 [facility] CenterPlatelets Auto (Bld) [#/Vol]on 08-23-2023 Platelets (Bld) [#/Vol]347 10 3/gY223-484QxgafmkygUniversity Hospitals [facility] Center Protein Auto test strip (U) [Mass/Vol]on 76-60-5952Kpzvmrc (U) [Mass/Vol] NegativeNEG/TRACEUniversity Hospitals Beachwood Medical CenterRBC Auto (Bld) [#/Vol]on 60-54-8761XFU (Bld) [#/Vol]4.35 10 6/uL4.20-5.40[facility] Centererum or plasma albumin/globulin mass ratioon 57-07-5438Btwmngl/Globulin [Mass ratio]1.2 {ratio}[facility] Centererum or plasma anion gap determinationon 23-06-6468Sbomx gap [Moles/Vol]14.5 mmol/LFTrinity Health Systemerum or plasma total cholesterol/high density lipoprotein (HDL) cholesterol mass constantin 21-68-5805Kxrbcolyaeb.total/Cholesterol in HDL [Mass ratio]2.9 {ratio}[facility] CenterComment on above:3.3 - 4.4 LOW RISK4.4 - 7.1 AVERAGE RISK7.1 - 11.0 MODERATE RISK>11.0 HIGH RISKSpecific gravity Auto test strip (U) [Rel density]on 99-12-3920Egaqiwgs gravity (U) [Rel density]CLEARCLEMercy Health St. Vincent Medical CenterUrine bacteria detection by automated methodon 69-67-3298Sskdtldm Auto Ql (U)NONE SEEN #/HPFNONE [facility] AdministrationUrine glucose measurement by test strip (mass/volume)on 36-08-5152Pomhwlb Test strip (U) [Mass/Vol]NegativeNEGATIVE [facility] CenterUrine hemoglobin detection by automated test stripon 12-16-1287Zigftkqhic Auto test strip Ql (U)NegativeNEGKettering Health TroyUrine nitrite detection by automated test stripon 69-65-7926Xzlvalk Auto test strip Ql (U)NegativeNEGKettering Health TroyUrine sediment crystal identification by light microscopyon 54-94-2742Bordsohj LM Nom (Urine sed)None Seen #/HPFNone Kindred HealthcareUrine sediment leukocyte count by microscopy (number/high power field)on 47-54-3740ELA LM.HPF (Urine sed) [#/Area]0-2 #/HPFNONE [facility] CenterUrobilinogen Auto test strip (U) [Mass/Vol]on 08-23-2023 Urobilinogen Qn (U)0.2 {David'U}/dL0.2-1.0[facility] Medical CenterpH Auto test strip (U)on 71-08-6346vY (U)5.5 [pH]5.0-9.0[facility] CenterPatient Correspondenceon 82-46-6332Dzewkcb Correspondence [id number]#1.00MIDLANDLuchoCritical access hospitalkirby [facility] HospitalInsurance Correspondence Officeon 37-74-5639Akyqzpfud Correspondence [id number]#1.00TIFCoshocton Regional Medical CenterConsent for Treatmenton 66-97-9760Cstljtk for Treatment [id number]#1.00TIFCoshocton Regional Medical CenterConsultation Noteon 52-83-2471Ipoufjujtrht NotePatient: CANELO PATHAK Age: 57 years Sex: [...] She has tried conservative measures inclusive of zjhs-rfg-wmauoxv medications and prescription medications inclusive of meloxicam, [...] Histories Past Medical History: Active Acid reflux (591765448) Asthma (771835351) Hypothyroid (626945730) Family History: No family history items have been selected or recorded. Procedure history: Myringotomy and insertion of T tube (927665760). Comments: 02/22/2011 10:22 TINOT - Trixie HART, Sommer x2 Tonsillectomy (815665331). Cholecystectomy (82381639). Laparoscopy (111997326). Abdominal hysterectomy (224830220). Physical Examination Vital Signs (last 24 hrs) [...] with patient, who voiced (more content not included)...[facility] HospitalComment on above:Result Comment: Electronically Signed By: Casper Nguyen DO.kaylan\Date and Time Signed: 05/10/23 15:07 ESTHIPAA Forms Officeon 58-95-7923CSLBO Forms [id number]#1.00TIFFOhio Valley HospitalLegal Correspondence Officeon 23-34-9564Maxyf Correspondence [id number]#1.00TIFCoshocton Regional Medical CenterLegal Correspondence Office [id number]#1.00TIFCoshocton Regional Medical CenterOffice/Clinic Note-Physicianon 52-59-7311Ysrdhf/Clinic Note-Physician [id number]#1.00TIFCoshocton Regional Medical CenterPatient Correspondenceon 66-74-7380Mvsbulp Correspondence [id number]#1.00[facility] CenterPatient [id number]#1.00TIFF [facility] HospitalPatient Correspondence [id number]#1.00TIFCoshocton Regional Medical CenterPatient [id number]#1.00TIFF [facility] HospitalPatient Correspondence [id number]#1.00[facility] CenterPatient History Officeon 49-95-5651Qbdnhed History Office [id number]#1.00[facility] Medical CenterOutside Records Officeon 35-80-0281Xiewheh Records Office [id number]#1.00[facility] CenterRadiology Outside Office Copyon 66-48-2979Srdgufevz Outside Office Copy [id number]#1.00[facility] CenterReferrals Officeon 43-39-1138Kdepcoafz Office [id number]#1.00[facility] CenterMR LUMBAR SPINE WO CONTRASTon 18-93-6944AU LUMBAR SPINE WO CONTRASTEXAM: MRI Lumbar Spine [...] Type 2 Possible Transdermal patchCBC AUTO DIFFon 61-98-9072JXUA #0.1 103/ulNormal 0.0-0.1[facility] CenterComment on above:Performed By: #### FT3, CMP, LIPID, TSH #### [facility] [address] [address] [address] Gin Xiesophils/100 WBC (Bld)0.9 %Normal0.2-2.0The [facility] Comment on above:Performed By: #### FT3, CMP, LIPID, TSH #### [facility] [address] [address] [address] Gin Carlton #0.5 103/ulNormal0.0-0.7The [facility] CenterComment on above: Performed By: #### FT3, CMP, LIPID, TSH #### [facility] [address] [address] [address] Gin Reganosinophils/100 WBC (Bld)5.8 %Normal0.9-7.0[facility] Comment on above:Performed By: #### FT3, CMP, LIPID, TSH #### [facility] [address] [address] [address] Gin Reganrythrocyte distribution width (RBC) [Ratio]13.0 %Ovcelz61.0-15.0 The [facility] CenterComment on above:Performed By: #### FT3, CMP, LIPID, TSH #### [facility] [address] [place] [address] Dr. Gin ChewHematocrit (Bld) [Volume fraction]39.7 %Okcgbf91.0-48.0The [facility] CenterComment on above:Performed By: #### FT3, CMP, LIPID, TSH #### [facility] [address] [place] [address] Dr. Gin ChewHemoglobin (Bld) [Mass/Vol]13.2 g/kBShlwbr45.0-16.0The [facility] CenterComment on above:Performed By: #### FT3, CMP, LIPID, TSH #### [facility] [address] [place] [address] Dr. Gin Harris #0.05 10e3/ulCritically high0.00-0.03The [facility] Comment on above:Performed By: #### FT3, CMP, LIPID, TSH #### [facility] [address] [place] [address] Dr. Gin Harris %0.6 %Critically high0.0-0.5The [facility] CenterComment on above:Performed By: #### FT3, CMP, LIPID, TSH #### [facility] [address] [place] [address] Dr. Gin MckeonMPH #2.1 103/ulNormal1.2-3.8The [facility] CenterComment on above:Performed By: #### FT3, CMP, LIPID, TSH #### [facility] [address] [place] [address] Dr. Gin Mckeonmphocytes/100 WBC (Bld)27.4 %Ygnwfr10.5-60.0The [facility] CenterComment on above:Performed By: #### FT3, CMP, LIPID, TSH #### [facility] [address] [place] [address] Dr. Gin JangUAL DIFF REQNONormalThe [facility] CenterComment on above: Performed By: #### FT3, CMP, LIPID, TSH #### [facility] [address] [place] [address] Dr. Gin Love (RBC) [Entitic mass]30.9 udFfefrd87.7-34.0The [facility] CenterComment on above:Performed By: #### FT3, CMP, LIPID, TSH #### [facility] [address] [place] [address] Dr. Gin Love (RBC) [Mass/Vol]33.2 g/zOChdcxw35.9-35.2The [facility] CenterComment on above:Performed By: #### FT3, CMP, LIPID, TSH #### [facility] [address] [place] [address] Dr. Gin Love (RBC) [Entitic vol]93.0 iFZqpknd80.0-99.0The [facility] CenterComment on above:Performed By: #### FT3, CMP, LIPID, TSH #### [facility] [address] [place] [address] Dr. Gin Reyes #0.6 103/ulNormal0.3-0.8The [facility] CenterComment on above:Performed By: #### FT3, CMP, LIPID, TSH #### [facility] [address] [place] [address] Dr. Gin Mathiasocytes/100 WBC (Bld)7.1 %Normal1.7-12.0The [facility] Comment on above:Performed By: #### FT3, CMP, LIPID, TSH #### [facility] [address] [place] [address] Dr. Gin Romero #4.5 103/ulNormal1.4-6.5The [facility] CenterComment on above:Performed By: #### FT3, CMP, LIPID, TSH #### [facility] [address] [place] [address] Dr. Gin Boutrophils/100 WBC (Bld)58.2 %Mumueh90.0-75.0The [facility] CenterComment on above:Performed By: #### FT3, CMP, LIPID, TSH #### [facility] [address] [place] [address] Dr. Gin ChewPlatelet mean volume (Bld) [Entitic vol]9.7 fLNormal9.5-13.5The [facility] CenterComment on above:Performed By: #### FT3, CMP, LIPID, TSH #### [facility] [address] [place] [address] Dr. Gin ChewPLT339 103/zgBgirhd261-673Hka [facility] CenterComment on above: Performed By: #### FT3, CMP, LIPID, TSH #### [facility] [address] [place] [address] Dr. Gin ChewRBC4.27 106/ulNormal4.20-5.40The Centervillement on above:Performed By: #### FT3, CMP, LIPID, TSH #### [facility] [address] [place] [address] Dr. Gin ChewWBC7.7 103/ulNormal4.0-11.0The [facility] CenterComment on above: Performed By: #### FT3, CMP, LIPID, TSH #### [facility] [address] [place] [address] Dr. Gin ChewPROToshia CHEM 8 (BAS METB)on 57-40-1199Oqtam gap [Moles/Vol]9.4 mmol/LNormalThe [facility] CenterComment on above:Performed By: #### FT3, CMP, LIPID, TSH #### [facility] [address] [address] [address] Gin ChewCalcium [Mass/Vol]9.1 mg/dLNormal8.5-10.1The [facility] Comment on above:Performed By: #### FT3, CMP, LIPID, TSH #### [facility] [address] [place] [address] Dr. Gin ChewChloride [Moles/Vol]104 mmol/KFdxhmg11-825Arj [facility] Comment on above:Performed By: #### FT3, CMP, LIPID, TSH #### [facility] [address] [place] [address] Dr. Gin ChewCO2 [Moles/Vol]31.7 mmol/UGkmufe48.0-32.0The [facility] Comment on above:Performed By: #### FT3, CMP, LIPID, TSH #### [facility] [address] [place] [address] Dr. Gin ChewCreatinine [Mass/Vol]0.77 mg/dLNormal0.55-1.02The [facility] CenterComment on above:Performed By: #### FT3, CMP, LIPID, TSH #### [facility] [address] [place] [address] Dr. Gin ReganGFR-AF LITHUANIAN>60Normal>=60The [facility] CenterComment on above:Performed By: #### FT3, CMP, LIPID, TSH #### [facility] [address] [place] [address] Dr. Gin ReganGFR-NON AF LITHUANIAN>60Normal>=60The [facility] CenterComment on above:Performed By: #### FT3, CMP, LIPID, TSH #### [facility] [address] [place] [address] Dr. Gin ChewGlucose [Mass/Vol]143 mg/dLCritically vhwu67-777Eus [facility] CenterComment on above:Performed By: #### FT3, CMP, LIPID, TSH #### [facility] [address] [place] [address] Dr. Gin ChewPotassium [Moles/Vol]4.1 mmol/LNormal3.5-5.1[facility] Comment on above:Performed By: #### FT3, CMP, LIPID, TSH #### [facility] [address] [address] [address] Gin ChewSodium [Moles/Vol]141 mmol/WHhvffd587-456Rin [facility] Comment on above:Performed By: #### FT3, CMP, LIPID, TSH #### [facility] [address] [address] [address] Gin ChewUrea nitrogen [Mass/Vol]19.0 mg/dLCritically high7.0-18.0The [facility] CenterComment on above:Performed By: #### FT3, CMP, LIPID, TSH #### [facility] [address] [address] [address] Gin Bennett nitrogen/Creatinine [Mass ratio]24.7 mg/mgNoCleveland Clinic FoundationComment on above:Performed By: #### FT3, CMP, LIPID, TSH #### [facility] [address] [place] [address] Dr. Gin ChewXR CHEST 2 Von 42-72-6873NX CHEST 2 VEXAM: XR CHEST 2 V [...] Electronically authenticated by: DURGA DENNIS Date: 2022-09-08 15:53[facility] W MANUAL DIFFon 06-08-6224RHJUCXJUKVJT3+NormalThe [facility] CenterComment on above:Performed By: #### CBCMAN #### [facility] [address] [address] [address] Gin Mendez LYMPH #NormalThe [facility] HospitalComment on above: Performed By: #### VICKIE #### [facility] [address] [address] [address] Gin BatresICAL LYMPH %NormalThe [facility] HospitalComment on above: Performed By: #### VICKIE #### [facility] [address] [address] [address] Gin Cameron #0.6 103/ulCritically high0.0-0.3The [facility] on above:Performed By: #### VICKIE #### [facility] [address] [address] [address] Gin Cameron %4 %Normal0-5The [facility] CenterComment on above:Performed By: #### VICKIE #### [facility] [address] [place] [address] Dr. Gin Persaud #0.00 103/ulNormal0.00-0.10The [facility] CenterComment on above:Performed By: #### VICKIE #### [facility] [address] [address] [address] Gin Persaud %0.0 %Critically low0.2-2.0The [facility] CenterComment on above:Performed By: #### VICKIE #### [facility] [address] [address] [address] Gin Carl #NormalThe [facility] HospitalComment on above:Performed By: #### VICKIE #### [facility] [address] [place] [address] Dr. Gin Carl %NormalThe [facility] CenterComment on above:Performed By: #### VICKIE #### [facility] [address] [place] [address] Dr. Gin ChewCORRECTED WBCNormal4.0-11.0The [facility] CenterComment on above: Performed By: #### CBCDORIS #### [facility] [address] [place] [address] Dr. Gin Martinez #0.45 103/ulNormal0.00-0.70The [facility] CenterComment on above:Performed By: #### VICKIE #### [facility] [address] [place] [address] Dr. Gin Martinez%3.0 %Normal0.9-7.0The [facility] CenterComment on above: Performed By: #### VICKIE #### [facility] [address] [place] [address] Dr. Gin BurnettT43.1 %Vaccei73.0-48.0The [facility] CenterComment on above: Performed By: #### VICKIE #### [facility] [address] [place] [address] Dr. Gin ChewHGB14.4 g/sfWknqsz15.0-16.0The [facility] CenterComment on above: Performed By: #### VICKIE #### [facility] [address] [place] [address] Dr. Gin Prieto #3.93 103/ulCritically high1.20-3.80The [facility] Comment on above:Performed By: #### VICKIE #### [facility] [address] [place] [address] Dr. Gin Prieto%26.0 %Kiiyex22.5-60.0The [facility] CenterComment on above:Performed By: #### VICKIE #### [facility] [address] [place] [address] Dr. Gin ChewMCH31.0 kcNcyrlq26.7-34.0The [facility] CenterComment on above: Performed By: #### VICKIE #### [facility] [address] [place] [address] Dr. Gin LoveHC33.4 g/bpUexwlb30.9-35.2The [facility] CenterComment on above:Performed By: #### VICKIE #### [facility] [address] [place] [address] Dr. Gin LoveV92.7 lFZmrmbj65.0-99.0[facility] Centerment on above: Performed By: #### VICKIE #### [facility] [address] [address] [address] Gin BlanchardOCYTE #NormalSalem Regional Medical CenterComment on above: Performed By: #### VICKIE #### [facility] [address] [address] [address] Gin BlanchardOCYTE %NormalSalem Regional Medical CenterComment on above: Performed By: #### VICKIE #### [facility] [address] [address] [address] Gin Oconnell#1.06 103/ulCritically high0.30-0.80The [facility] on above:Performed By: #### VICKIE #### [facility] [address] [place] [address] Dr. Gin Oconnell%7.0 %Normal1.7-12.0The [facility] CenterComment on above: Performed By: #### VICKIE #### [facility] [address] [place] [address] Dr. Gin ChewMPV9.7 fLNormal9.5-13.5The [facility] CenterComcorewell health william [facility] on above: Performed By: #### VICKIE #### [facility] [address] [place] [address] Dr. Gin Saleem #NormalSalem Regional Medical CenterComment on above:Performed By: #### VICKIE #### [facility] [address] [place] [address] Dr. Gin Saleem %NormalSalem Regional Medical CenterComcorewell health william [facility] on above:Performed By: #### VICKIE #### [facility] [address] [place] [address] Dr. Gin ChewNRQUINNormalThHolzer HospitalComcorewell health [facility] on above:Performed By: #### VICKIE #### [facility] [address] [place] [address] Dr. Gin ChewPLT372 103/srWlleel950-208Jxi [facility] HospitalComment on above: Performed By: #### CBCMAN #### [facility] [address] [address] [address] Gin ChewRBC4.65 106/ulNormal4.20-5.40The [facility] CenterComment on above:Performed By: #### CBCMAN #### [facility] [address] [address] [address] Gin ChewRDW13.0 %Tevpbn34.0-15.0The [facility] CenterComment on above: Performed By: #### CBCMAN #### [facility] [address] [address] [address] Gin Redding #9.06 103/ulCritically high1.40-6.50The [facility] Comment on above:Performed By: #### CBCMAN #### [facility] [address] [place] [address] Dr. Gin Redding %60.0 %Egfrcp18.0-75.0The [facility] CenterComment on above: Performed By: #### CBCMAN #### [facility] [address] [place] [address] Dr. Gin ChewWBC15.1 103/ulCritically high4.0-11.0The [facility] CenterComment on above:Performed By: #### CBCMAN #### [facility] [address] [place] [address] Dr. Gin ChewLACTATE/LACTIC ACIDon 17-46-3618Bunslba [Moles/Vol]1.2 mmol/L Normal0.4-2.0The [facility] CenterComment on above:Performed By: #### BMP #### [facility] [address] [place] [address] Dr. Gin ChewPROF CHEM 8 (BAS METB)on 70-53-2252Ujwfi gap [Moles/Vol]11.4 mmol/LNormalThe [facility] CenterComment on above:Performed By: #### A1C #### [facility] [address] [place] [address] Dr. Gin ChewCalcium [Mass/Vol]9.2 mg/dLNormal8.5-10.1[facility] Comment on above:Performed By: #### A1C #### [facility] [address] [address] [address] Gin ChewChloride [Moles/Vol]102 mmol/EPdaxft32-835Ojd [facility] Comment on above:Performed By: #### A1C #### [facility] [address] [address] [address] Gin ChewCO2 [Moles/Vol]31.3 mmol/NIyuhvx14.0-32.0The [facility] Comment on above:Performed By: #### A1C #### [facility] [address] [place] [address] Dr. Gin ChewCreatinine [Mass/Vol]0.86 mg/dLNormal0.55-1.02[facility] CenterComment on above:Performed By: #### A1C #### [facility] [address] [place] [address] Dr. Gin ReganGFR-AF LITHUANIAN>60Normal>=60The [facility] CenterComment on above:Performed By: #### A1C #### [facility] [address] [place] [address] Dr. Gin ReganGFR-NON AF LITHUANIAN>60Normal>=60The [facility] CenterComment on above:Performed By: #### A1C #### [facility] [address] [address] [address] Gin ChewGlucose [Mass/Vol]119 mg/dLCritically hmfc07-575Bwy [facility] CenterComment on above:Performed By: #### A1C #### [facility] [address] [address] [address] Gin ChewPotassium [Moles/Vol]3.7 mmol/LNormal3.5-5.1[facility] Comment on above:Performed By: #### A1C #### [facility] [address] [place] [address] Dr. Gin CehwSodium [Moles/Vol]141 mmol/QPdvxom926-634Pjm [facility] Comment on above:Performed By: #### A1C #### [facility] [address] [place] [address] Dr. Gin Bennett nitrogen [Mass/Vol]17.0 mg/dLNormal7.0-18.0The [facility] CenterComment on above:Performed By: #### A1C #### [facility] [address] [place] [address] Dr. Gin ChewUrea nitrogen/Creatinine [Mass ratio]19.8 mg/mgNormalThe [facility] CenterComment on above:Performed By: #### A1C #### [facility] [address] [place] [address] Dr. Gin Cruz RATE WESTERGRENon 29-95-7369VEM RATE8 mm/hrNormal<=30The [facility] CenterComment on above:Performed By: #### A1C #### [facility] [address] [place] [address] Dr. Gin Salter AUTO DIFFon 14-93-4642EOSZ #0.1 103/ulNormal0.0-0.1The [facility] CenterComment on above:Performed By: #### BMP #### [facility] [address] [place] [address] Dr. Gin ChewBasophils/100 WBC (Bld)0.7 %Normal0.2-2.0[facility] Comment on above:Performed By: #### BMP #### [facility] [address] [place] [address] Dr. Gin Carlton #0.3 103/ulNormal0.0-0.7The [facility] CenterComment on above: Performed By: #### BMP #### [facility] [address] [place] [address] Dr. Gin Reganosinophils/100 WBC (Bld)1.9 %Normal0.9-7.0The [facility] Comment on above:Performed By: #### BMP #### [facility] [address] [place] [address] Dr. Yilan ChangErythrocyte distribution width (RBC) [Ratio]12.9 %Zainki73.0-15.0 The [facility] CenterComment on above:Performed By: #### BMP #### [facility] [address] [place] [address] Dr. Gin ChewHematocrit (Bld) [Volume fraction]42.9 %Pnxwvr93.0-48.0The [facility] CenterComment on above:Performed By: #### BMP #### [facility] [address] [place] [address] Dr. Gin CehwHemoglobin (Bld) [Mass/Vol]14.3 g/yFFlegaz74.0-16.0The [facility] CenterComment on above:Performed By: #### BMP #### [facility] [address] [place] [address] Dr. Gin Harris #0.41 10e3/ulCritically high0.00-0.03The [facility] Comment on above:Performed By: #### BMP #### [facility] [address] [place] [address] Dr. Gin Harris %2.5 %Critically high0.0-0.5The [facility] CenterComment on above:Performed By: #### BMP #### [facility] [address] [place] [address] Dr. Gin Girard #3.5 103/ulNormal1.2-3.8The [facility] CenterComment on above:Performed By: #### BMP #### [facility] [address] [place] [address] Dr. Gin Whitakerhocytes/100 WBC (Bld)21.5 %Wxewwk29.5-60.0The [facility] CenterComment on above:Performed By: #### BMP #### [facility] [address] [place] [address] Dr. Gin JangUAL DIFF REQNONormalThe [facility] CenterComment on above: Performed By: #### BMP #### [facility] [address] [place] [address] Dr. Gin Lanier (RBC) [Entitic mass]30.9 qiIjlsgk93.7-34.0The [facility] CenterComment on above:Performed By: #### BMP #### [facility] [address] [place] [address] Dr. Gin Love (RBC) [Mass/Vol]33.3 g/pBAquvap21.9-35.2The [facility] CenterComment on above:Performed By: #### BMP #### [facility] [facility] [address] [place] [address] Dr. Gin Love (RBC) [Entitic vol]92.7 kELzkqsy96.0-99.0The [facility] CenterComment on above:Performed By: #### BMP #### [facility] [address] [place] [address] Dr. Gin Reyes #1.0 103/ulCritically high0.3-0.8The [facility] Comment on above:Performed By: #### BMP #### [facility] [address] [place] [address] Dr. Gin Mathiasocytes/100 WBC (Bld)6.2 %Normal1.7-12.0[facility] Comment on above:Performed By: #### BMP #### [facility] [address] [place] [address] Dr. Gin Romero #10.9 103/ulCritically high1.4-6.5The [facility] Comment on above:Performed By: #### BMP #### [facility] [address] [place] [address] Dr. Gin Boutrophils/100 WBC (Bld)67.2 %Khrzco49.0-75.0The [facility] CenterComment on above:Performed By: #### BMP #### [facility] [address] [place] [address] Dr. Gin Gamble mean volume (Bld) [Entitic vol]9.7 fLNormal9.5-13.5The [facility] CenterComment on above:Performed By: #### BMP #### [facility] [address] [address] [address] Gin ChewPLT424 103/gqUsohni910-957Cbu [facility] CenterComment on above: Performed By: #### BMP #### [facility] [address] [place] [address] Dr. Gin ChewRBC4.63 106/ulNormal4.20-5.40The [facility] CenterComment on above:Performed By: #### BMP #### [facility] [address] [address] [address] Gin ChewWBC16.2 103/ulCritically high4.0-11.0The [facility] CenterComcorewell health [facility] on above:Performed By: #### BMP #### [facility] [address] [place] [address] Dr. Gin ChewCT HEAD WO CONon [id number] HEAD WO CONHEAD CT WITHOUT CONTRAST, 08/17/2022 [...] Electronically authenticated by: Lloyd SANDRA Date: 2022-08-17 18:16[facility] HospitalC[facility] ([facility])on [id number]-CoV-2 (COVID-19) RNA ARIADNA+probe Ql (Unsp spec)Not detectedNormalNOT DETECTEDThe [facility] Comment on above:Result Comment: This test is not yet approved or cleared by the [place] FDA. When there are no FDA-approved or cleared tests available, and other criteria are met, FDA can make tests available under an emergency access mechanism called an Emergency Use Authorization (EUA). The EUA for this test is supported by the Economics Professor of Health and Human Service's (HHS's) declaration [...] consistent with SARS-CoV-2.Performed By: #### A1C #### [facility] [address] [place] [address] Dr. Gin ChewPROF CHEM 8 (BAS METB)on 61-39-5871Oabmh gap [Moles/Vol]13.8 mmol/LNormalSalem Regional Medical CenterComment on above:Performed By: #### BMP #### [facility] [address] [place] [address] Dr. Gin ChewCalcium [Mass/Vol]9.0 mg/dLNormal8.5-10.1[facility] Comment on above:Performed By: #### BMP #### [facility] [address] [place] [address] Dr. Gin ChewChloride [Moles/Vol]102 mmol/BRjibsk72-023Yzu [facility] Comment on above:Performed By: #### BMP #### [facility] [address] [place] [address] Dr. Gin ChewCO2 [Moles/Vol]28.4 mmol/OMfntem12.0-32.0[facility] Comment on above:Performed By: #### BMP #### [facility] [address] [address] [address] Gin ChewCreatinine [Mass/Vol]0.93 mg/dLNormal0.55-1.02The [facility] CenterComment on above:Performed By: #### BMP #### [facility] [address] [address] [address] Gin ReganGFR-AF LITHUANIAN>60Normal>=60The [facility] CenterComment on above:Performed By: #### BMP #### [facility] [address] [address] [address] Gin ReganGFR-NON AF LITHUANIAN>60Normal>=60The [facility] CenterComment on above:Performed By: #### BMP #### [facility] [address] [address] [address] Gin ChewGlucose [Mass/Vol]133 mg/dLCritically mllc29-475Eti [facility] CenterComment on above:Performed By: #### BMP #### [facility] [address] [address] [address] Gin ChewPotassium [Moles/Vol]4.2 mmol/LNormal3.5-5.1[facility] Comment on above:Performed By: #### BMP #### [facility] [address] [address] [address] Gin ChewSodium [Moles/Vol]140 mmol/JOsppgd643-192Ikv [facility] Comment on above:Performed By: #### BMP #### [facility] [address] [address] [address] Gin ChewUrea nitrogen [Mass/Vol]20.0 mg/dLCritically high7.0-18.0The [facility] CenterComment on above:Performed By: #### BMP #### [facility] [address] [address] [address] Gin ChewUrea nitrogen/Creatinine [Mass ratio]21.5 mg/mgNormalThe [facility] CenterComment on above:Performed By: #### BMP #### [facility] [address] [place] [address] Dr. Gin GrimesMATIC COVID-19 ANTIGENon [id number] StatementSEE BELOW NormalThe [facility] CenterComment on above:Result Comment: This test [...] is revoked sooner.Performed By: #### A1C #### [facility] [address] [place] [address] Dr. Gin Posey-CoV-2 (COVID-19) RNA ARIADNA+probe Ql (Unsp spec)NegativeNormal NEGATIVEThe [facility] CenterComment on above:Performed By: #### A1C #### [facility] [address] [place] [address] Dr. Gin Salter AUTO DIFFon 27-28-5263MWJE #0.1 103/ulNormal0.0-0.1The [facility] CenterComment on above:Performed By: #### BMP #### [facility] [address] [place] [address] Dr. Gin ChewBasophils/100 WBC (Bld)1.0 %Normal0.2-2.0The [facility] Comment on above:Performed By: #### BMP #### [facility] [address] [place] [address] Dr. Greenfield ChangEO #0.5 103/ulNormal0.0-0.7The [facility] CenterComment on above: Performed By: #### BMP #### [facility] [address] [place] [address] Dr. Gin Reganosinophils/100 WBC (Bld)7.1 %Critically high0.9-7.0The [facility] CenterComment on above:Performed By: #### BMP #### [facility] [address] [place] [address] Dr. Gin Reganrythrocyte distribution width (RBC) [Ratio]12.3 %Togiwm30.0-15.0 The [facility] CenterComment on above:Performed By: #### BMP #### [facility] [address] [place] [address] Dr. Gin ChewHematocrit (Bld) [Volume fraction]39.6 %Ceacbm75.0-48.0The [facility] CenterComment on above:Performed By: #### BMP #### [facility] [address] [place] [address] Dr. Gin ChewHemoglobin (Bld) [Mass/Vol]13.5 g/fTJucvpe35.0-16.0The [facility] CenterComment on above:Performed By: #### BMP #### [facility] [address] [place] [address] Dr. Gin Harris #0.03 10e3/ulNormal0.00-0.03The [facility] CenterComment on above:Performed By: #### BMP #### [facility] [address] [place] [address] Dr. Gin Harris %0.4 %Normal0.0-0.5The [facility] CenterComment on above: Performed By: #### BMP #### [facility] [address] [place] [address] Dr. Gin WhitakerH #2.4 103/ulNormal1.2-3.8The [facility] CenterComment on above:Performed By: #### BMP #### [facility] [address] [place] [address] Dr. Gin Mckeonmphocytes/100 WBC (Bld)33.7 %Cfmelt75.5-60.0The [facility] CenterComment on above:Performed By: #### BMP #### [facility] [address] [place] [address] Dr. Gin Jones DIFF REQNONormalThe [facility] CenterComment on above: Performed By: #### BMP #### [facility] [address] [place] [address] Dr. Gin Love (RBC) [Entitic mass]30.8 qwQaekjn49.7-34.0The [facility] HospitalComment on above:Performed By: #### BMP #### [facility] [address] [place] [address] Dr. Gin oLve (RBC) [Mass/Vol]34.1 g/yPDtawqx60.9-35.2The [facility] CenterComment on above:Performed By: #### BMP #### [facility] [address] [place] [address] Dr. Gin Love (RBC) [Entitic vol]90.2 aRXzoddr25.0-99.0The [facility] CenterComment on above:Performed By: #### BMP #### [facility] [address] [place] [address] Dr. Gin Reyes #0.5 103/ulNormal0.3-0.8The [facility] CenterComment on above:Performed By: #### BMP #### [facility] [address] [place] [address] Dr. Gin Mathiasocytes/100 WBC (Bld)6.7 %Normal1.7-12.0The [facility] Comment on above:Performed By: #### BMP #### [facility] [address] [place] [address] Dr. Gin Romero #3.6 103/ulNormal1.4-6.5The [facility] CenterComment on above:Performed By: #### BMP #### [facility] [address] [place] [address] Dr. Gin Boutrophils/100 WBC (Bld)51.1 %Rnmacs57.0-75.0The [facility] CenterComment on above:Performed By: #### BMP #### [facility] [address] [place] [address] Dr. Gin Gamble mean volume (Bld) [Entitic vol]9.6 fLNormal9.5-13.5The [facility] CenterComment on above:Performed By: #### BMP #### [facility] [address] [place] [address] Dr. Gin ChewPLT337 103/caWcuswd046-616Ono [facility] CenterComment on above: Performed By: #### BMP #### [facility] [address] [place] [address] Dr. Gin ChewRBC4.39 106/ulNormal4.20-5.40The [facility] CenterComment on above:Performed By: #### BMP #### [facility] [address] [place] [address] Dr. Gin ChewWBC7.0 103/ulNormal4.0-11.0The [facility] CenterComment on above: Performed By: #### BMP #### [facility] [address] [place] [address] Dr. Gin Baldwin URINEon 97-92-1916ZECJQTV URINECulture Observations: MODERATE GROWTH OF MIXED GENITAL ELOINA. NO POTENTIAL PATHOGENS SEEN.NormalThe [facility] CenterComment on above:Performed By: #### A1C #### [facility] [address] [place] [address] Dr. Gin Crawford T3on 46-46-8104FCLQ T32.10 pg/mlLCritically low2.18-3.98The [facility] CenterComment on above:Performed By: #### FT3, CMP, LIPID, TSH #### [facility] [address] [place] [address] Dr. Gin Crawford T4on 17-34-6020Qiow T4 [Mass/Vol]1.56 ng/dLCritically high 0.76-1.46The [facility] CenterComment on above:Performed By: #### FT4, VITAD #### [facility] [address] [address] [address] Gin ChewGLYCOHEMOGLOBIN A1Con 55-01-5569QPO RECOMMENDATIONSEE BELOWMercy Health Kings Mills HospitalComcorewell health [facility] on above:Result Comment: ADA RECOMMENDED LIMIT 4.0 - 6.0 ADA THERAPEUTIC TARGET < 7.0 ACTION SUGGESTED > 7.0Performed By: #### A1C #### [facility] [address] [address] [address] Gin ChewGlucose [Mass/Vol]134 mg/dLNoCleveland Clinic FoundationComment on above:Performed By: #### A1C #### [facility] [address] [place] [address] Dr. Gin ChewHbA1c (Bld) [Mass fraction]6.3 %Critically high4.5-6.2[facility] CenterComment on above:Performed By: #### A1C #### [facility] [address] [place] [address] Dr. Gin ChewLIPID PROFILEon 26-13-5203TAXJ-HDL RATIO NORMSEE [facility] NorthComcorewell health [facility] on above:Result Comment: 3.3 - 4.4 LOW RISK 4.4 - 7.1 AVERAGE RISK 7.1 - 11.0 MODERATE RISK >11.0 HIGH RISKPerformed By: #### FT3, CMP, LIPID, TSH #### [facility] [address] [place] [address] Dr. Gin ChewCholesterol [Mass/Vol]190 mg/dLNormal<=200The [facility] Comment on above:Performed By: #### FT3, CMP, LIPID, TSH #### [facility] [address] [address] [address] Gin ChewCholesterol in HDL [Mass/Vol]76 mg/dLCritically pyqm69-44Imk [facility] CenterComcorewell health [facility] on above:Performed By: #### FT3, CMP, LIPID, TSH #### [facility] [address] [place] [address] Dr. Gin ChewCholesterol in LDL [Mass/Vol]98.4 mg/dLGrand Lake Joint Township District Memorial HospitalComment on above:Performed By: #### FT3, CMP, LIPID, TSH #### [facility] [address] [place] [address] Dr. Gin ChewCholesterol.total/Cholesterol in HDL [Mass ratio]2.5 {ratio} NormalThe [facility] CenterComment on above:Performed By: #### FT3, CMP, LIPID, TSH #### [facility] [address] [address] [address] Gin Mota NORMAL> or = 60 mg/dl - LOW CARDIOVASCULAR RISK <40 mg/dl - HIGH CARDIOVASCULAR RISKNoCleveland Clinic FoundationComment on above:Performed By: #### FT3, CMP, LIPID, TSH #### [facility] [address] [place] [address] Dr. Gin ChewLDL CALC NORMALSEE BELOWNoCleveland Clinic FoundationComment on above:Result Comment: <100 mg/dl OPTIMAL 100 - 129 mg/dl NEAR OR ABOVE OPTIMAL 130 - 159 mg/dl BORDERLINE HIGH 160 - 189 mg/dl HIGH >190 mg/dl VERY HIGH Performed By: #### FT3, CMP, LIPID, TSH #### [facility] [address] [place] [address] Dr. Gin ChewTriglyceride [Mass/Vol]78 mg/dLNormal<=150[facility] Comment on above:Performed By: #### FT3, CMP, LIPID, TSH #### [facility] [address] [place] [address] Dr. Gin ChewVLDL CALC15.6 mg/dLNoCleveland Clinic FoundationComment on above: Performed By: #### FT3, CMP, LIPID, TSH #### [facility] [address] [place] [address] Dr. Gin MacedoALBUMIN, RAND URon 48-77-3795nZLJ3.7 mg/LNormal<=30.0[facility] CenterComment on above:Performed By: #### A1C #### [facility] [address] [place] [address] Dr. Gin Hitchcock 14(COMP METB)on 27-06-8135Cumeaau [Mass/Vol]4.0 g/dLNormal 3.4-5.0The [facility] CenterComment on above:Performed By: #### FT3, CMP, LIPID, TSH #### [facility] [address] [address] [address] Gin ChewAlbumin/Globulin [Mass ratio]1.2 {ratio}NormalThe [facility] CenterComment on above:Performed By: #### FT3, CMP, LIPID, TSH #### [facility] [address] [address] [address] Gin Cm [Catalytic activity/Vol]67 U/OPmjlxd51-958Jsw [facility] CenterComment on above:Performed By: #### FT3, CMP, LIPID, TSH #### [facility] [address] [place] [address] Dr. Gin Vera [Catalytic activity/Vol]25 U/COumurw58-29Nvr [facility] CenterComment on above:Performed By: #### FT3, CMP, LIPID, TSH #### [facility] [address] [address] [address] Gin Hayes gap [Moles/Vol]12.2 mmol/LNormalThe [facility] Comment on above:Performed By: #### FT3, CMP, LIPID, TSH #### [facility] [address] [address] [address] Gin ChewAST [Catalytic activity/Vol]20 U/NTbftgb78-25Oqx Centervillement on above:Performed By: #### FT3, CMP, LIPID, TSH #### [facility] [address] [address] [address] Gin ChewBilirubin [Mass/Vol]0.4 mg/dLNormal0.2-1.0The [facility] Comment on above:Performed By: #### FT3, CMP, LIPID, TSH #### [facility] [address] [address] [address] iGn ChewCalcium [Mass/Vol]9.6 mg/dLNormal8.5-10.1The [facility] Comment on above:Performed By: #### FT3, CMP, LIPID, TSH #### [facility] [address] [address] [address] Gin ChewChloride [Moles/Vol]103 mmol/VBfxisr71-429Iqx [facility] Comment on above:Performed By: #### FT3, CMP, LIPID, TSH #### [facility] [address] [address] [address] Gin ChewCO2 [Moles/Vol]28.1 mmol/QGjentg13.0-32.0The [facility] Comment on above:Performed By: #### FT3, CMP, LIPID, TSH #### [facility] [address] [place] [address] Dr. Gin ChewCreatinine [Mass/Vol]0.64 mg/dLNormal0.55-1.02The [facility] CenterComment on above:Performed By: #### FT3, CMP, LIPID, TSH #### [facility] [address] [place] [address] Dr. Gin ReganGFR-AF LITHUANIAN>60Normal>=60The [facility] CenterComment on above:Performed By: #### FT3, CMP, LIPID, TSH #### [facility] [address] [place] [address] Dr. Gin ReganGFR-NON AF LITHUANIAN>60Normal>=60The [facility] CenterComment on above:Performed By: #### FT3, CMP, LIPID, TSH #### [facility] [address] [place] [address] Dr. Gin ChewGlobulin (S) [Mass/Vol]3.3 g/dLNormalThe [facility] CenterComment on above:Performed By: #### FT3, CMP, LIPID, TSH #### [facility] [address] [address] [address] Gin ChewGlucose [Mass/Vol]98 mg/hKBqihen06-516Mcd [facility] Comment on above:Performed By: #### FT3, CMP, LIPID, TSH #### [facility] [address] [place] [address] Dr. Gin ChewPotassium [Moles/Vol]4.3 mmol/LNormal3.5-5.1The [facility] Comment on above:Performed By: #### FT3, CMP, LIPID, TSH #### [facility] [address] [place] [address] Dr. Gin ChewProtein [Mass/Vol]7.3 g/dLNormal6.4-8.2The [facility] Comment on above:Performed By: #### FT3, CMP, LIPID, TSH #### [facility] [address] [place] [address] Dr. Gin ChewSodium [Moles/Vol]139 mmol/UGkgaks108-817Vpj [facility] Comment on above:Performed By: #### FT3, CMP, LIPID, TSH #### [facility] [address] [place] [address] Dr. Gin Bennett nitrogen [Mass/Vol]21.0 mg/dLCritically high7.0-18.0The [facility] CenterComment on above:Performed By: #### FT3, CMP, LIPID, TSH #### [facility] [address] [place] [address] Dr. Gin Bennett nitrogen/Creatinine [Mass ratio]32.8 mg/mgNormalThe [facility] CenterComment on above:Performed By: #### FT3, CMP, LIPID, TSH #### [facility] [address] [place] [address] Dr. Gin Shields 43-31-1107JJY3.200 uIU/mLNormal0.358-3.740[facility] CenterComment on above:Performed By: #### FT3, CMP, LIPID, TSH #### [facility] [address] [place] [address] Dr. Gin Westbrook RANDOM W/MICROSCOPICon 15-05-5535RYLLMXHNCJWP SEENNormalNONE SEENThe [facility] CenterComment on above:Performed By: #### FT3, CMP, LIPID, TSH #### [facility] [address] [address] [address] Gin ChewBilirubin Ql (U)NegativeNormalNEGATIVESalem Regional Medical Center Comment on above:Performed By: #### FT3, CMP, LIPID, TSH #### [facility] [address] [address] [address] Gin ChewCASTNONE SEENNormalNONE SEENSalem Regional Medical CenterComment on above:Performed By: #### FT3, CMP, LIPID, TSH #### [facility] [address] [address] [address] Gin ChewClarity (U)CLEARNormalCLEARSalem Regional Medical CenterComment on above: Performed By: #### FT3, CMP, LIPID, TSH #### [facility] [address] [address] [address] Gin ChewColor (U)LT. YELLOWNormalYELLOWSalem Regional Medical CenterComment on above:Performed By: #### FT3, CMP, LIPID, TSH #### [facility] [address] [address] [address] Gin ChewCrystals LM Nom (Urine sed)NONE SEENNormalNONE SEENSalem Regional Medical CenterComment on above:Performed By: #### FT3, CMP, LIPID, TSH #### [facility] [address] [address] [address] Greenfield ChangEpithelial cells LM Ql (Urine sed)FEWAbnormalNONE SEEN /RAREThe [facility] CenterComcorewell health [facility] on above:Performed By: #### FT3, CMP, LIPID, TSH #### [facility] [address] [address] [address] Gin ChewGlucose Ql (U)NegativeNormalNEGATIVESalem Regional Medical CenterComment on above:Performed By: #### FT3, CMP, LIPID, TSH #### [facility] [address] [address] [address] Gin ChewHemoglobin Ql (U)NegativeNormalNEGATIVESalem Regional Medical Center Comment on above:Performed By: #### FT3, CMP, LIPID, TSH #### [facility] [address] [address] [address] Gin Munguia Ql (U)NegativeNormalNEGATIVEThe [facility] CenterComment on above:Performed By: #### FT3, CMP, LIPID, TSH #### [facility] [address] [address] [address] Gin ChewLEUKOCYTESNegativeNormalNEGATIVEThe [facility] CenterComment on above:Performed By: #### FT3, CMP, LIPID, TSH #### [facility] [address] [address] [address] Gin Whitten SEENNormalNONE SEENSalem Regional Medical CenterComment on above:Performed By: #### FT3, CMP, LIPID, TSH #### [facility] [address] [address] [address] Gin Muniz Ql (U)NegativeNormalNEGATIVEThe [facility] CenterComment on above:Performed By: #### FT3, CMP, LIPID, TSH #### [facility] [address] [address] [address] Gin ChewpH (U)5.5 [pH]Normal5-9The [facility] CenterComment on above: Performed By: #### FT3, CMP, LIPID, TSH #### [facility] [address] [address] [address] Gin Blakely SEENAbnormal0-2The [facility] CenterComment on above: Performed By: #### FT3, CMP, LIPID, TSH #### [facility] [address] [address] [address] Gin ChewSPEC GRAVITY1.011Fkfaen4.005-<=1.025The [facility] CenterComment on above:Performed By: #### FT3, CMP, LIPID, TSH #### [facility] [address] [address] [address] Gin ChewUA PROTEINNegativeNormalNEGATIVE/ TRACEThe [facility] Comment on above:Performed By: #### FT3, CMP, LIPID, TSH #### [facility] [address] [place] [address] Dr. Gin Avila Qn (U)0.2 {David'U}/dLNormal0.2 - 1.0The Centervillement on above:Performed By: #### FT3, CMP, LIPID, TSH #### [facility] [address] [place] [address] Dr. Gin Donovan SEENrmalNONE SEENThe [facility] CenterComment on above: Performed By: #### FT3, CMP, LIPID, TSH #### [facility] [address] [place] [address] Dr. Gin ChewVITAMIN D 25 OHon 34-04-6586MSB D 25-OH30.1 ng/mLNormalThe [facility] CenterComment on above:Performed By: #### FT4, VITAD #### [facility] [address] [place] [address] Dr. Gin DARDENSEE [facility] NorthComment on above: Result Comment: <20 ng/mL Vit D deficient 20 - <30 ng/mL Vit D insufficient 30 - 100 ng/mL Vit D sufficient >100 ng/mL Potential ToxicityPerformed By: #### FT4, VITAD #### [facility] [address] [place] [address] Dr. Gin Crawford T3on 46-60-0783VDVC T32.83 pg/mlLNormal2.18-3.98The [facility] CenterComment on above:Performed By: #### BMP #### [facility] [address] [place] [address] Dr. Gin Crawford T4on 57-24-8405Yryp T4 [Mass/Vol]1.74 ng/dLCritically high 0.76-1.46The [facility] CenterComcorewell health [facility] on above:Performed By: #### FT4 #### [facility] [address] [place] [address] Dr. Gin Shields 73-93-5849MYR6.235 uIU/mLCritically low0.358-3.740The [facility] CenterComment on above:Performed By: #### BMP #### [facility] [address] [place] [address] Dr. Gin ChewXR CHEST 2 Von 90-72-7693BG CHEST 2 VEXAMINATION: XR CHEST 2 V [...] Electronically authenticated by: JEFF PATHAK Date: 2021-11-29 21:03[facility] HospitalCNPNon [id number] (ENDOSO) CANELO PATHAK ([id number]) 1965 F Date Time Provider Department 10/13/21 ANIAL JIMENEZ During your visit today, we recorded [...] Date Reviewed: 10/13/2021 Reviewed by: Anila Jimenez APRN.STORE RECEIVING CLERK - Fully Assessed Reason for Visit: Appointment [...] daily. - mometasone furoate(NASONEX 50 MCG/ACTUATION SPRAY) [place] twice in each nostril once daily. - [...] wi*10/11/2021 Encounter Status:Closed by ANILA JIMENEZ on 10/13/21[facility] W Auto Differential panel (Bld)on [id number] (Bld) [#/Vol] 0.07 10*3/uLNormal<0.11CMercer County Community Hospital on above:Order Comment: Specimen Type: BLOOD SPECIMENOrdering Facility: [facility] Address:[address] [place], [place] [address]Performed By: #### CMP, HBA1C, FREET3, FT4, TSH #### [place] [address] Nuanvvlug/100 WBC (Bld)0.7 %[facility] on above:Order Comment: Specimen Type: BLOOD SPECIMENOrdering Facility: [facility] Address:[address] [place] [address] Performed By: #### CMP, HBA1C, FREET3, FT4, TSH #### [place] [address] Gocptmdpgonn cell count method Nom (Bld)AutoNormalCMercer County Community Hospital on above:Order Comment: Specimen Type: BLOOD SPECIMENOrdering Facility: [facility] Address:[address] [place], [place] [address]Performed By: #### CMP, HBA1C, FREET3, FT4, TSH #### [place] [address] Ajxdnysfsue (Bld) [#/Vol]0.29 10*3/uLNormal<0.46[facility] on above:Order Comment: Specimen Type: BLOOD SPECIMENOrdering Facility: [facility] Address:[address] [place], [place] [address]Performed By: #### CMP, HBA1C, FREET3, FT4, TSH #### [place] [address] Gyllensvuii/100 WBC (Bld)3.0 %[facility] Comment on above:Order Comment: Specimen Type: BLOOD SPECIMENOrdering Facility: [facility] Address:[address] [place] [address] Performed By: #### CMP, HBA1C, FREET3, FT4, TSH #### [place] [address] Kspnaefphmh distribution width (RBC) [Ratio]12.3 %Ocjqnd46.5-15.0 [facility] on above:Order Comment: Specimen Type: BLOOD SPECIMENOrdering Facility: [facility] Address:[address] [place], [place] [address]Performed By: #### CMP, HBA1C, FREET3, FT4, TSH #### [place] [address] Jhjybznfev (Bld) [Volume fraction]43.4 %Dkbntc88.0-46.0[facility] on above:Order Comment: Specimen Type: BLOOD SPECIMENOrdering Facility: [facility] Address:[address] [place], [place] [address]Performed By: #### CMP, HBA1C, FREET3, FT4, TSH #### [place] [address] Etiksygntm (Bld) [Mass/Vol]14.5 g/pKBgkzak21.5-15.5CMercer County Community Hospital on above:Order Comment: Specimen Type: BLOOD SPECIMENOrdering Facility: [facility] Address:[address] [place], [place] [address]Performed By: #### CMP, HBA1C, FREET3, FT4, TSH #### [place] [address] JAXKTAJG GRAN %0.4 %NormalWVUMedicine Harrison Community Hospital on above:Order Comment: Specimen Type: BLOOD SPECIMENOrdering Facility: [facility] Address:[address] [place], [place] [address]Performed By: #### CMP, HBA1C, FREET3, FT4, TSH #### [place] [address] NOEVKGHZ GRAN ABS0.04 k/uLNormal<0.10[facility] Comment on above:Order Comment: Specimen Type: BLOOD SPECIMENOrdering Facility: [facility] Address:[address] [place] [address] Performed By: #### CMP, HBA1C, FREET3, FT4, TSH #### [place] [address] Mbrlpitggrw (Bld) [#/Vol]2.21 10*3/uLNormal1.00-4.00[facility] on above:Order Comment: Specimen Type: BLOOD SPECIMENOrdering Facility: [facility] Address:[address] [place], [place] [address]Performed By: #### CMP, HBA1C, FREET3, FT4, TSH #### [place] [address] Npazlyheyus/100 WBC (Bld)22.6 %NormalWhite Hospital Comment on above:Order Comment: Specimen Type: BLOOD SPECIMENOrdering Facility: [facility] Address:[address] [place] [address] Performed By: #### CMP, HBA1C, FREET3, FT4, TSH #### [place] [phone] (RBC) [Entitic mass]30.7 qrMvdhew45.0-34.0[facility] on above:Order Comment: Specimen Type: BLOOD SPECIMENOrdering Facility: [facility] Address:[address] [place], [place] [address]Performed By: #### CMP, HBA1C, FREET3, FT4, TSH #### [place] [phone] (RBC) [Mass/Vol]33.4 g/eJNagays83.5-36.0[facility] on above:Order Comment: Specimen Type: BLOOD SPECIMENOrdering Facility: [facility] Address:[address] [place], [place] [address]Performed By: #### CMP, HBA1C, FREET3, FT4, TSH #### [place] [phone] (RBC) [Entitic vol]91.9 cVNpzfte07.0-100.0[facility] on above:Order Comment: Specimen Type: BLOOD SPECIMENOrdering Facility: [facility] Address:[address] [place], [place] [address]Performed By: #### CMP, HBA1C, FREET3, FT4, TSH #### [place] [phone] (Bld) [#/Vol]0.60 10*3/uLNormal<0.87[facility] on above:Order Comment: Specimen Type: BLOOD SPECIMENOrdering Facility: [facility] Address:[address] [place], [place] [address]Performed By: #### CMP, HBA1C, FREET3, FT4, TSH #### [place] [phone]/100 WBC (Bld)6.1 %NormalWVUMedicine Harrison Community Hospital on above:Order Comment: Specimen Type: BLOOD SPECIMENOrdering Facility: [facility] Address:[address] [place], [place] [address] Performed By: #### CMP, HBA1C, FREET3, FT4, TSH #### [place] [phone] (Bld) [#/Vol]6.57 10*3/uLNormal1.45-7.50[facility] on above:Order Comment: Specimen Type: BLOOD SPECIMENOrdering Facility: [facility] Address:[address] [place], [place] [address]Performed By: #### CMP, HBA1C, FREET3, FT4, TSH #### [place] [address] Ymppclfbmvh/100 WBC (Bld)67.2 %NormalWhite Hospital Comment on above:Order Comment: Specimen Type: BLOOD SPECIMENOrdering Facility: [facility] Address:[address] [place] [address] Performed By: #### CMP, HBA1C, FREET3, FT4, TSH #### [place] [address] Hukhxqlxf RBC (Bld) [#/Vol]10*3/uLNormal<0.01[facility] on above:Order Comment: Specimen Type: BLOOD SPECIMENOrdering Facility: [facility] Address:[address] [place], [place] [address]Performed By: #### CMP, HBA1C, FREET3, FT4, TSH #### [place] [address] Mrzkyvbkk RBC/100 WBC (Bld) [Ratio]0.0 /100 WBCNormalCSumma Healthment on above:Order Comment: Specimen Type: BLOOD SPECIMENOrdering Facility: [facility] Address:[address] [place], [place] [address]Performed By: #### CMP, HBA1C, FREET3, FT4, TSH #### [place] [address] Nazxnlkk mean volume (Bld) [Entitic vol]10.4 fLNormal9.0-12.7 [facility] on above:Order Comment: Specimen Type: BLOOD SPECIMENOrdering Facility: [facility] Address:[address] [place], [place] [address]Performed By: #### CMP, HBA1C, FREET3, FT4, TSH #### [place] [address] Vtuyiilfg (Bld) [#/Vol]371 10*3/cODbcuog030-269RmijmyegtWVUMedicine Harrison Community Hospital on above:Order Comment: Specimen Type: BLOOD SPECIMENOrdering Facility: [facility] Address:[address] [place], [place] [address]Performed By: #### CMP, HBA1C, FREET3, FT4, TSH #### [facility] [address] [place] [address] PQX (Bld) [#/Vol]4.72 10*6/uLNormal3.90-5.20[facility] on above:Order Comment: Specimen Type: BLOOD SPECIMENOrdering Facility: [facility] Address:[address] [place], [place] [address]Performed By: #### CMP, HBA1C, FREET3, FT4, TSH #### [place] [address] IJL (Bld) [#/Vol]9.78 10*3/uLNormal3.70-11.00[facility] on above:Order Comment: Specimen Type: BLOOD SPECIMENOrdering Facility: [facility] Address:[address] [place], [place] [address]Performed By: #### CMP, HBA1C, FREET3, FT4, TSH #### [facility] [address] [place] [address] Tuo Immature Gran0.04 k/uL<0.10 k/uLUniversity Hospitals Beachwood Medical CenterBasophils (Bld) [#/Vol]0.07 10*3/uL<0.11 k/uLGlenside ClinicBasophils/100 WBC (Bld)0.7 % [facility] CenterDifferential cell count method Nom (Bld)AutoCKettering Health – Soin Medical Center Eosinophils (Bld) [#/Vol]0.29 10*3/uL<0.46 k/uLUniversity Hospitals Beachwood Medical CenterEosinophils/100 WBC (Bld)3.0 %[facility] CenterErythrocyte distribution width (RBC) [Ratio]12.3 % 11.5 - 15.0 %[facility] Medical CenterHematocrit (Bld) [Volume fraction]43.4 %36.0 - 46.0 %[facility] CenterHemoglobin (Bld) [Mass/Vol]14.5 g/dL11.5 - 15.5 g/dLUniversity Hospitals Beachwood Medical CenterImmature Gran %0.4 %[facility] Medical CenterLymphocytes (Bld) [#/Vol]2.21 10*3/uL 1.00 - 4.00 k/uLUniversity Hospitals Beachwood Medical CenterLymphocytes/100 WBC (Bld)22.6 %[facility] MCH (RBC) [Entitic mass]30.7 pg26.0 - 34.0 pgClevelSCCI Hospital LimaMCHC (RBC) [Mass/Vol]33.4 g/dL30.5 - 36.0 g/dLUniversity Hospitals Beachwood Medical CenterMCV (RBC) [Entitic vol]91.9 fL80.0 - 100.0 fLClevelSCCI Hospital LimaMonocytes (Bld) [#/Vol]0.60 10*3/uL<0.87 k/uL [facility] CenterMonocytes/100 WBC (Bld)6.1 %[facility] Medical CenterNeutrophils (Bld) [#/Vol]6.57 10*3/uL1.45 - 7.50 k/uLUniversity Hospitals Beachwood Medical CenterNeutrophils/100 WBC (Bld)67.2 %[facility] CenterNucleated RBC (Bld) [#/Vol]10*3/uL<0.01 k/uLUniversity Hospitals [facility] Center Nucleated RBC/100 WBC (Bld) [Ratio]0.0 /100 WBCUniversity Hospitals Beachwood Medical CenterPlatelet mean volume (Bld) [Entitic vol]10.4 fL9.0 - 12.7 fLClevelformerly vid[facility] ClinicPlatelets (Bld) [#/Vol]371 10*3/uL150 - 400 k/uLUniversity Hospitals Beachwood Medical CenterRBC (Bld) [#/Vol]4.72 10*6/uL 3.90 - 5.20 m/uLUniversity Hospitals Beachwood Medical CenterWBC (Bld) [#/Vol]9.78 10*3/uL3.70 - 11.00 k/uL [facility] Medical CenterCNOVon 25-31-5016FUXTEzkmse Visit (RHEUMN) CANELO PATHAK ([id number]) 1965 F Date Time Provider Department 10/07/21 [...] mcg (5,000 unit) cap - Vitamin D [place] (code-laboration for Periscape) Take 1 capsule by mouth daily with food. - montelukast (SINGULAIR) 10 mg tablet Take 10 mg by mouth daily at bedtime. - MULTIVIT-MINERALS/FERROUS GLUC (CENTRAM-CARE ORAL) Take by mouth twice daily. - esomeprazole mag trihydrate(NEXIUM 40 MG CAP) Take one(1) capsule daily. - mometasone furoate(NASONEX 50 MCG/ACTUATION SPRAY) [place] twice in each nostril once daily. - [...] [F41.1] Order(s):CBC + DIFF [SQCBCDIF] Order #: [id number] FUTURE PROTEIN ELECTROPHORESIS SERUM W/INTERP [SQSEPG] Order #: [id number] FUTURE venlafaxine ER (EFFEXOR XR) 37.5 mg 24 hr capsuletake one a day, if tolerated after two weeks increase to twoDisp: 60 capsuleRfl: 3 CO (more content not included)...NormalWhite HospitalComprehensive metabolic 2000 panelon 38-40-8135Ltfrvpp [Mass/Vol]4.8 g/dLNormal3.9-4.9 [facility] on above:Order Comment: Specimen Type: BLOOD SPECIMENOrdering Facility: [facility] Address:[address] [place], [place] [address]Performed By: #### CMP, HBA1C, FREET3, FT4, TSH #### [facility] [employer] [address] [place] [address] NFT [Catalytic activity/Vol]72 U/QFbghgj82-086RzzcovuqyWVUMedicine [facility] Hospital on above:Order Comment: Specimen Type: BLOOD SPECIMENOrdering Facility: [facility] Address:[address] [place], [place] [address]Performed By: #### CMP, HBA1C, FREET3, FT4, TSH #### [facility] [employer] [address] [place] [address] PDO [Catalytic activity/Vol]24 U/LNormal7-38[facility] on above:Order Comment: Specimen Type: BLOOD SPECIMENOrdering Facility: [facility] Address:[address] [place], [place] [address]Performed By: #### CMP, HBA1C, FREET3, FT4, TSH #### [place] [address] Nzfyx gap [Moles/Vol]11 mmol/LNormal9-18[facility] Comment on above:Order Comment: Specimen Type: BLOOD SPECIMENOrdering Facility: [facility] Address:[address] [place] [address] Performed By: #### CMP, HBA1C, FREET3, FT4, TSH #### [place] [address] BQP [Catalytic activity/Vol]17 U/HGuanbd42-54MhfyxjkkyWhite HospitalComcorewell health will[facility] on above:Order Comment: Specimen Type: BLOOD SPECIMENOrdering Facility: [facility] Address:[address] [place], [place] [address]Performed By: #### CMP, HBA1C, FREET3, FT4, TSH #### [place] [address] Mhcxcamel [Mass/Vol]0.5 mg/dLNormal0.2-1.3CSelect [facility] Comment on above:Order Comment: Specimen Type: BLOOD SPECIMENOrdering Facility: [facility] Address:[address] [place] [address] Performed By: #### CMP, HBA1C, FREET3, FT4, TSH #### [place] [address] Ubptpai [Mass/Vol]10.3 mg/dLHigh8.5-10.2CSelect [facility] Comment on above:Order Comment: Specimen Type: BLOOD SPECIMENOrdering Facility: [facility] Address:[address] [place] [address] Performed By: #### CMP, HBA1C, FREET3, FT4, TSH #### [place] [address] Yuncqcrl [Moles/Vol]100 mmol/PXngrkm68-551TfjnfntdcWhite Hospital Comment on above:Order Comment: Specimen Type: BLOOD SPECIMENOrdering Facility: [facility] Address:[address] [place] [address] Performed By: #### CMP, HBA1C, FREET3, FT4, TSH #### [place] [address] GV7 [Moles/Vol]28 mmol/BKwjmoz33-19FdwqzziqpWhite HospitalComment on above:Order Comment: Specimen Type: BLOOD SPECIMENOrdering Facility: [facility] Address:[address] [place] [address] Performed By: #### CMP, HBA1C, FREET3, FT4, TSH #### [place] [address] Endytrfgmd [Mass/Vol]0.70 mg/dLNormal0.58-0.96White HospitalComment on above:Order Comment: Specimen Type: BLOOD SPECIMENOrdering Facility: [facility] Address:[address] [place], [place] [address]Performed By: #### CMP, HBA1C, FREET3, FT4, TSH #### [place] [address] CWFDAOPGX GLOMERULAR FILTRATION JVMW235 mL/min/1.73m???Normal>=60 [facility] on above:Order Comment: Specimen Type: BLOOD SPECIMENOrdering Facility: [facility] Address:[address] [place], [place] [address]Result Comment: Estimated Glomerular Filtration Rate (eGFR) is [...] #### CMP, HBA1C, FREET3, FT4, TSH #### [place] [address] [place] [address] Cdlmucf [Mass/Vol]124 mg/aASjuf36-57YtfiyiuowWhite Hospital Comment on above:Order Comment: Specimen Type: BLOOD SPECIMENOrdering Facility: [facility] Address:[address] [place], [place] [id number] Result Comment: The [place] Diabetes Association (ADA) provides guidance for cutoff [...] Standards of Medical Care in Diabetes 2016, [place] [employer]. Diabetes Care. 2016.39(Suppl 1).Performed By: #### CMP, HBA1C, FREET3, FT4, TSH #### [place] [address] Rsuufnbxr [Moles/Vol]4.1 mmol/LNormal3.7-5.1CSelect Medical Specialty Hospital - AkronComment on above:Order Comment: Specimen Type: BLOOD SPECIMENOrdering Facility: [facility] Address:[address] [place] [id number] By: #### CMP, HBA1C, FREET3, FT4, TSH #### [place] [address] Lqpxgwm [Mass/Vol]7.3 g/dLNormal6.3-8.0[facility] Comment on above:Order Comment: Specimen Type: BLOOD SPECIMENOrdering Facility: [facility] Address:[address] [place] [phone] Performed By: #### CMP, HBA1C, FREET3, FT4, TSH #### [place] [address] Awlgbw [Moles/Vol]139 mmol/OIodjmh705-011KrsycvhzuWhite Hospital Comment on above:Order Comment: Specimen Type: BLOOD SPECIMENOrdering Facility: [facility] Address:[address] [place] [address] Performed By: #### CMP, HBA1C, FREET3, FT4, TSH #### [place] [address] Qkjf nitrogen [Mass/Vol]18 mg/dLNormal7-21[facility] Comment on above:Order Comment: Specimen Type: BLOOD SPECIMENOrdering Facility: [facility] Address:[address] [place] [address] Performed By: #### CMP, HBA1C, FREET3, FT4, TSH #### [place] [address] IAD A1Con 52-01-3877Ssmhlaf glucose Estimated from glycated hemoglobin (Bld) [Mass/Vol]160 mg/dLNormalCSelect Medical Specialty Hospital - AkronComment on above:Order Comment: Specimen Type: BLOOD SPECIMENOrdering Facility: [facility] Address:[address] [place], [place] [address]Result Comment: eAG: (Estimated average glucose) is a calculated value from HgbA1c and is customer service representative teller of the average blood glucose level in the last 2-3 month period.Performed By: #### CMP, HBA1C, FREET3, FT4, TSH #### [place] [address] RjP3w (Bld) [Mass fraction]7.2 %High4.3-5.6CMercer County Community Hospital on above:Order Comment: Specimen Type: BLOOD SPECIMENOrdering Facility: [facility] Address:[address] [place], [place] [address]Result Comment: [place] [employer] guidelines indicate that patients with HgbA1c in the range 5.7-6.4% are at increased risk for development of diabetes, and intervention by lifestyle modification may be beneficial. HgbA1c greater or equal to 6.5% is considered diagnostic of diabetes.Performed By: #### CMP, HBA1C, FREET3, FT4, TSH #### [place] [address] UFMBIME ELECTROPHORESIS SERUM (P)on 90-06-3736Tojvtjy [Mass/Vol]4.18 g/dLNormal3.37-4.23[facility] on above:Order Comment: Specimen Type: BLOOD SPECIMENOrdering Facility: [facility] Address:[address] [place], [place] [address]Performed By: #### CMP, HBA1C, FREET3, FT4, TSH #### [place] [address] Dlzoe 1 globulin Elph [Mass/Vol]0.24 g/dLNormal0.18-0.31[facility] on above:Order Comment: Specimen Type: BLOOD SPECIMENOrdering Facility: [facility] Address:[address] [place], [place] [address]Performed By: #### CMP, HBA1C, FREET3, FT4, TSH #### [place] [address] Lokxh 2 globulin Elph [Mass/Vol]0.83 g/dLNormal0.52-0.97[facility] on above:Order Comment: Specimen Type: BLOOD SPECIMENOrdering Facility: [facility] Address:[address] [place], [place] [address]Performed By: #### CMP, HBA1C, FREET3, FT4, TSH #### [place] [address] Dgjx globulin Elph [Mass/Vol]1.21 g/dLNormal0.84-1.36[facility] on above:Order Comment: Specimen Type: BLOOD SPECIMENOrdering Facility: [facility] Address:[address] [place], [place] [address]Performed By: #### CMP, HBA1C, FREET3, FT4, TSH #### [place] [address] Jrmpm globulin Elph (Body fld) [Mass fraction]0.74 g/dLNormal 0.70-1.44[facility] on above:Order Comment: Specimen Type: BLOOD SPECIMENOrdering Facility: [facility] Address:[address] [place], [place] [address]Performed By: #### CMP, HBA1C, FREET3, FT4, TSH #### [place] [address] G-PROTEIN LOCATIONNormalCMercer County Community Hospital on above: Order Comment: Specimen Type: BLOOD SPECIMENOrdering Facility: [facility] Address:[address] [place], [place] [address]Result Comment: Not Applicable.Performed By: #### CMP, HBA1C, FREET3, FT4, TSH #### [place] [address] Pwdabnr Fractions [Interp]No definitive M protein is identified on protein electrophoresis.NormalNo definitive M protein is identified on protein electrophoresis.[facility] on above:Order Comment: Specimen Type: BLOOD SPECIMENOrdering Facility: [facility] Address:[address] [place], [place] [address]Performed By: #### CMP, HBA1C, FREET3, FT4, TSH #### [place] [address] Dljpfen.monoclonal Elph [Mass/Vol]0.00 g/dLNormal<=0.00[facility] on above:Order Comment: Specimen Type: BLOOD SPECIMENOrdering Facility: [facility] Address:[address] [place], [place] [address]Performed By: #### CMP, HBA1C, FREET3, FT4, TSH #### [place] [address] EQR STAFF REVIEWReviewed by Ginette Doyle MDNormalCMercer County Community Hospital on above:Order Comment: Specimen Type: BLOOD SPECIMENOrdering Facility: [facility] Address:[address] [place], [place] [address]Performed By: #### CMP, HBA1C, FREET3, FT4, TSH #### [place] [address] Awxh SerPl-mCncon 49-38-6954Lntcrng [Mass/Vol]7.2 g/dLNormal6.3-8.0 [facility] on above:Order Comment: Specimen Type: BLOOD SPECIMEN [facility] Address: [address] [place], [place] [address]Performed By: #### 2885-2 #### [facility] CLIA [id number] [address] [place], [place] [address]T3 FREE BLDon 32-49-3636Kool T3 [Mass/Vol]3.1 pg/mLNormal2.3-4.1CMercer County Community Hospital on above: Order Comment: Specimen Type: BLOOD SPECIMENOrdering Facility: [facility] Address:[address] [place], [place] [address]Performed By: #### CMP, HBA1C, FREET3, FT4, TSH #### [place] [phone] FREE/FREE THYROXon 01-00-1627Mrzz T4 [Mass/Vol]2.5 ng/dLHigh 0.9-1.7CMercer County Community Hospital on above:Order Comment: Specimen Type: BLOOD SPECIMENOrdering Facility: [facility] Address:[address] [place], [place] [address]Performed By: #### CMP, HBA1C, FREET3, FT4, TSH #### [place] [phone] SerPl-aCncon 19-99-9555ULZ Qn0.228 m[IU]/LLow0.270-4.200 [facility] on above:Order Comment: Specimen Type: BLOOD SPECIMENOrdering Facility: [facility] Address:[address] [place] [phone] By: #### CMP, HBA1C, FREET3, FT4, TSH #### [facility] [address] [place], [place] [id number] XDMJsx 13-00-6505FARHDwnjadfsi (ENDOMN) CANELO PATHAK ([id number]) 1965 F Date Time Provider Department 10/03/21 ASAD ANSARI During your visit today, we recorded the following information about you: Renea Mcfarland Director Construction Services 10/03/2021 3:05 PM Addendum Patient called in [...] Fully Assessed Reason for Visit: Lab Orders [3438] Primary Visit Diagnosis:Acquired hypothyroidism [E03.9] Other Visit Diagnosis:Controlled type 2 diabetes mellitus without complication, without long-term current use of insulin (HCC) [E11.9] Order(s):TSH BLD [SQTSH] Order #: [id number] FUTURE T4 FREE/FREE THYROX [SQFT4] Order #: [id number] FUTURE T3 FREE BLD [SQFREET3] Order #: [id number] FUTURE COMP METABOLIC PANEL [SQCMP] Order #: [id number] FUTURE HGB A1C [JISSG8T] Order #: [id number] FUTURE Prescriptions as of 10/05/2021 - metFORMIN ER (GLUCOPHAGE XR) 500 mg 24 hr tablet Take 2 tablets by mouth twice daily. - levothyroxine (SYNTHROID) 112 mcg tablet Take 2 tablets by mouth once daily. - cyclobenzaprine (FLEXERIL) 10 mg tablet - Cholecalciferol, Vitamin D3, 125 mcg (5,000 unit) cap - Vitamin D [place] (Simple-Fill) Take 1 capsule by mouth daily with food. - montelukast (SINGULAIR) 10 mg tablet Take 10 mg by mouth daily at bedtime. - MULTIVIT-MINERALS/FERROUS GLUC (CENTRAM-CARE ORAL) Take by mouth twice daily. - esomeprazole mag trihydrate(NEXIUM 40 MG CAP) Take one(1) capsule daily. - mometasone furoate(NASONEX 50 MCG/ACTUATION SPRAY) [place] twice in each nostril once daily. - cetirizine hcl(ZYRTEC 10 MG TAB) Take one(1) tablet daily. - fluticasone/salmeterol(ADVAIR DISKUS 250 MCG-50 MCG/DOSE FOR INHALATION) Take one(1) inhalation twice daily; rinse and gargle mouth with water after each use. Problem List As Of Date 10/03/2021 Noted Resolved CFS (chronic fatigue syndrome) [R53.82] 09/20/2015 Fibromyalgia [M79.7] 09/20/2015 BMI 50.0-59.9, adult (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 Gin Jesus.MB [Mass/Vol]0.66 ng/mLNormal<=3.60[facility] Comment on above:Performed By: #### FT3, CMP, LIPID, TSH #### [facility] [address] [place] [address] Dr. Gin AmosTROP6.4 pg/mLNormal4.0-51.3The [facility] CenterComment on above:Result Comment: CUT-OFF POINTS HAVE BEEN ESTABLISHED BASED ON THE FOURTH UNIVERSAL DEFINITIONS OF MYOCARDIAL INFARCTION. THE UPPER REFERENCE LIMIT (URL) OF TROPONIN, DEFINED THE 99TH PERCENTILE OF cTnI DISTRIBUTION IN A REFERENCE POPULATION, HAS BEEN CONFIRMED THE DECISION THRESHOLD FOR [place] DIAGNOSIS.Performed By: #### FT3, CMP, LIPID, TSH #### [facility] [address] [place] [address] Dr. Gin CliftonO28 ng/mLNormal9-82[facility] CenterComment on above: Performed By: #### FT3, CMP, LIPID, TSH #### [facility] [address] [place] [address] Dr. Gin Salter AUTO DIFFon [id number] #0.1 103/ulNormal0.0-0.1The [facility] CenterComment on above:Performed By: #### A1C #### [facility] [address] [place] [address] Dr. Gin ChewBasophils/100 WBC (Bld)0.7 %Normal0.2-2.0[facility] Comment on above:Performed By: #### A1C #### [facility] [address] [address] [address] Gin Carlton #0.5 103/ulNormal0.0-0.7The [facility] CenterComment on above: Performed By: #### A1C #### [facility] [address] [place] [address] Dr. Gin Reganosinophils/100 WBC (Bld)4.4 %Normal0.9-7.0The [facility] Comment on above:Performed By: #### A1C #### [facility] [address] [place] [address] Dr. Gin Reganrythrocyte distribution width (RBC) [Ratio]12.7 %Imubdz36.0-15.0 The [facility] CenterComment on above:Performed By: #### A1C #### [facility] [address] [place] [address] Dr. Gin ChewHematocrit (Bld) [Volume fraction]42.2 %Sngpwd86.0-48.0The [facility] CenterComment on above:Performed By: #### A1C #### [facility] [address] [place] [address] Dr. Gin ChewHemoglobin (Bld) [Mass/Vol]14.1 g/hWTsnlpm58.0-16.0The [facility] CenterComment on above:Performed By: #### A1C #### [facility] [address] [place] [address] Dr. Gin Harris #0.10 10e3/ulCritically high0.00-0.03The [facility] Comment on above:Performed By: #### A1C #### [facility] [address] [place] [address] Dr. Gin Harris %0.9 %Critically high0.0-0.5The [facility] CenterComment on above:Performed By: #### A1C #### [facility] [address] [place] [address] Dr. Gin WhitakerH #3.4 103/ulNormal1.2-3.8The [facility] CenterComment on above:Performed By: #### A1C #### [facility] [address] [place] [address] Dr. Gin ChewLymphocytes/100 WBC (Bld)29.9 %Cmleva97.5-60.0The [facility] CenterComment on above:Performed By: #### A1C #### [facility] [address] [place] [address] Dr. Gin JangUAL DIFF REQNONormalThe [facility] CenterComment on above: Performed By: #### A1C #### [facility] [address] [place] [address] Dr. Gin Love (RBC) [Entitic mass]31.0 fpDiegsu66.7-34.0The [facility] CenterComment on above:Performed By: #### A1C #### [facility] [address] [place] [address] Dr. Gin Love (RBC) [Mass/Vol]33.4 g/eBHyqfnk26.9-35.2The [facility] CenterComment on above:Performed By: #### A1C #### [facility] [address] [place] [address] Dr. Gin Love (RBC) [Entitic vol]92.7 vZDrlyzm12.0-99.0The [facility] CenterComment on above:Performed By: #### A1C #### [facility] [address] [place] [address] Dr. Gin Reyes #0.7 103/ulNormal0.3-0.8The [facility] CenterComment on above:Performed By: #### A1C #### [facility] [address] [place] [address] Dr. Gin Mathiasocytes/100 WBC (Bld)6.5 %Normal1.7-12.0The [facility] Comment on above:Performed By: #### A1C #### [facility] [address] [place] [address] Dr. Gin Romero #6.5 103/ulNormal1.4-6.5The [facility] CenterComment on above:Performed By: #### A1C #### [facility] [address] [address] [address] Gin ChewNeutrophils/100 WBC (Bld)57.6 %Vwzydk60.0-75.0The [facility] CenterComment on above:Performed By: #### A1C #### [facility] [address] [address] [address] Gin ChewPlatelet mean volume (Bld) [Entitic vol]10.1 fLNormal9.5-13.5The [facility] CenterComment on above:Performed By: #### A1C #### [facility] [address] [place] [address] Dr. Gin ChewPLT349 103/bwIprzvb370-563Mgv [facility] CenterComment on above: Performed By: #### A1C #### [facility] [address] [place] [address] Dr. Gin ChewRBC4.55 106/ulNormal4.20-5.40The [facility] CenterComment on above:Performed By: #### A1C #### [facility] [address] [place] [address] Dr. Gin ChewWBC11.3 103/ulCritically high4.0-11.0The [facility] CenterComment on above:Performed By: #### A1C #### [facility] [address] [place] [address] Dr. Gin ChewCT ABD/PELVIS WO CONon [id number] ABD/PELVIS WO CONEXAMINATION: CT ABD/PELVIS WO CON, [...] Electronically authenticated by: JEFF PATHAK Date: 2021-09-28 10:31[facility] HospitalPOINT OF CARE GLUCOSEon 50-91-2307Gcgkewv [Mass/Vol]129 mg/dL Critically nrtb42-869Kyk [facility] CenterComment on above:Performed By: #### FT3, CMP, LIPID, TSH #### [facility] [address] [place] [address] Dr. Gin ChewPROF 14(COMP METB)on 25-56-9011Fdctbib [Mass/Vol]3.7 g/dLNormal 3.4-5.0The [facility] on above:Performed By: #### FT3, CMP, LIPID, TSH #### [facility] [address] [place] [address] Dr. Gin ChewAlbumin/Globulin [Mass ratio]1.1 {ratio}NormalThe [facility] on above:Performed By: #### FT3, CMP, LIPID, TSH #### [facility] [address] [place] [address] Dr. Gin Cm [Catalytic activity/Vol]79 U/YZdgnvk32-378Ejc [facility] on above:Performed By: #### FT3, CMP, LIPID, TSH #### [facility] [address] [address] [address] Gin Vera [Catalytic activity/Vol]28 U/DJhoicy15-30Yln [facility] on above:Performed By: #### FT3, CMP, LIPID, TSH #### [facility] [address] [place] [address] Dr. Gin Hayes gap [Moles/Vol]9.9 mmol/LNormalThe [facility] HospitalComment on above:Performed By: #### FT3, CMP, LIPID, TSH #### [facility] [address] [address] [address] Gin ChewAST [Catalytic activity/Vol]15 U/TKyaher18-28Udx [facility] CenterComment on above:Performed By: #### FT3, CMP, LIPID, TSH #### [facility] [address] [address] [address] Gin ChewBilirubin [Mass/Vol]0.3 mg/dLNormal0.2-1.0The [facility] Comment on above:Performed By: #### FT3, CMP, LIPID, TSH #### [facility] [address] [place] [address] Dr. Gin ChewCalcium [Mass/Vol]9.2 mg/dLNormal8.5-10.1The [facility] Comment on above:Performed By: #### FT3, CMP, LIPID, TSH #### [facility] [address] [address] [address] Gin ChewChloride [Moles/Vol]100 mmol/LRernjq63-951Zlu [facility] Comment on above:Performed By: #### FT3, CMP, LIPID, TSH #### [facility] [address] [address] [address] Gin ChewCO2 [Moles/Vol]32.1 mmol/LCritically high21.0-32.0The [facility] CenterComment on above:Performed By: #### FT3, CMP, LIPID, TSH #### [facility] [address] [place] [address] Dr. Gin ChewCreatinine [Mass/Vol]0.75 mg/dLNormal0.55-1.02The [facility] CenterComment on above:Performed By: #### FT3, CMP, LIPID, TSH #### [facility] [address] [place] [address] Dr. Greenfield ChangEGFR-AF LITHUANIAN>60Normal>=60The [facility] CenterComment on above:Performed By: #### FT3, CMP, LIPID, TSH #### [facility] [address] [address] [address] Gin ReganGFR-NON AF LITHUANIAN>60Normal>=60The [facility] CenterComment on above:Performed By: #### FT3, CMP, LIPID, TSH #### [facility] [address] [address] [address] Gin ChewGlobulin (S) [Mass/Vol]3.4 g/dLNormalThe [facility] CenterComment on above:Performed By: #### FT3, CMP, LIPID, TSH #### [facility] [address] [address] [address] Gin ChewGlucose [Mass/Vol]138 mg/dLCritically hsdv49-803Fth [facility] CenterComment on above:Performed By: #### FT3, CMP, LIPID, TSH #### [facility] [address] [place] [address] Dr. Gin ChewPotassium [Moles/Vol]4.0 mmol/LNormal3.5-5.1The [facility] Comment on above:Performed By: #### FT3, CMP, LIPID, TSH #### [facility] [address] [address] [address] Gin ChewProtein [Mass/Vol]7.1 g/dLNormal6.4-8.2The [facility] Comment on above:Performed By: #### FT3, CMP, LIPID, TSH #### [facility] [address] [address] [address] Gin ChewSodium [Moles/Vol]138 mmol/KAzpqqn710-342Dty [facility] Comment on above:Performed By: #### FT3, CMP, LIPID, TSH #### [facility] [address] [place] [address] Dr. Gin ChewUrea nitrogen [Mass/Vol]17.0 mg/dLNormal7.0-18.0The [facility] CenterComment on above:Performed By: #### FT3, CMP, LIPID, TSH #### [facility] [address] [place] [address] Dr. Gin ChewUrea nitrogen/Creatinine [Mass ratio]22.7 mg/mgNoCleveland Clinic FoundationComment on above:Performed By: #### FT3, CMP, LIPID, TSH #### [facility] [address] [place] [address] Dr. Gin ChewPROTIMEon [id number] Coag (PPP) [Relative time]0.94 {INR} NormalSalem Regional Medical CenterComment on above:Performed By: #### BMP #### [facility] [address] [place] [address] Dr. Gin Victoria GUIDELINESSEE BELOWGrand Lake Joint Township District Memorial HospitalComment on above:Result Comment: DESIRED INR: 2.0 - 3.0 CONDITIONS NOT LISTED BELOW 2.5 - 3.5 FOR PROSTHETIC HEART VALVE REPLACEMENT 2.5 - 3.5 RECURRENT THROMBOSIS Performed By: #### BMP #### [facility] [address] [place] [address] Dr. Gin ChewPT Coag (PPP) [Time]10.2 sNormal9.0-11.6The [facility] Comment on above:Performed By: #### BMP #### [facility] [address] [place] [address] Dr. Gin Jimenez [id number] Coag (Bld) [Time]26.9 cUkaowk21.3-36.2[facility] CenterComment on above:Performed By: #### BMP #### [facility] [address] [place] [address] Dr. Gin Quiroz, HIGH SENSITIVITYon 75-31-4003BGFBYV1.3 pg/mLNormal 4.0-51.3The [facility] CenterComcorewell health [facility] on above:Result Comment: CUT-OFF POINTS HAVE BEEN ESTABLISHED BASED ON THE FOURTH UNIVERSAL DEFINITIONS OF MYOCARDIAL INFARCTION. THE UPPER REFERENCE LIMIT (URL) OF TROPONIN, DEFINED THE 99TH PERCENTILE OF cTnI DISTRIBUTION IN A REFERENCE POPULATION, HAS BEEN CONFIRMED THE DECISION THRESHOLD FOR [place] DIAGNOSIS.Performed By: #### BMP #### [facility] [address] [place] [address] Dr. Yilan ChangXR CHEST 1 Von [id number] CHEST 1 VEXAMINATION: XR CHEST 1 V [...] Electronically authenticated by: JEFF PATHAK Date: 2021-09-28 09:20[facility] [id number] (ENDOMN) CANELO PATHAK ([id number]) 1965 F Date Time Provider Department 07/21/21 [...] to please review allergies and medications on [facility] to ensure they are correct. [...] mcg (5,000 unit) cap - Vitamin D [place] (code-laboration for [employer]isc[employer]) Take 1 capsule by mouth daily with food. - montelukast (SINGULAIR) 10 mg tablet Take 10 mg by mouth daily at bedtime. - MULTIVIT-MINERALS/FERROUS GLUC (CENTRAM-CARE ORAL) Take by mouth twice daily. - esomeprazole mag trihydrate(NEXIUM 40 MG CAP) Take one(1) capsule daily. - mometasone furoate(NASONEX 50 MCG/ACTUATION SPRAY) [place] twice in each nostril once daily. - cetirizine hcl(ZYRTEC 10 MG TAB) Take one(1) tablet daily. - fluticasone/salmeterol(ADVAIR DISKUS 250 MCG-50 MCG/DOSE FOR INHALATION) Take one(1) inhalation twice daily; rinse and gargle mouth with water after each use. Problem List As Of Date 07/21/2021 Noted Resolved CFS (chronic fatigue syndrome) [R53.82] 09/20/2015 Fibromyalgia [M79.7] 09/20/2015 BMI 50.0-59.9, adult (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] 09/20/2015 Metabolic syndrome [E88.81] 09/20/2015 Sensorineural hearing loss, bilateral [H90.3] 12/16/2018 Encounter Status:Closed by LUAN BIRMINGHAM on 07/21/21[facility] [id number] (ENDOMN) LAWSONCANELO ([id number]) 1965 F Date Time Provider Department 06/22/21 ASAD ANSARI During your visit today, we recorded the following information about you: Neema Gunderson Adm 06/22/2021 9:10 AM Signed Patient called in requesting the results of her labs that she had completed on 06/16/2021 Canelo can be reached at [phone] (c) or can be reached through [employer]. Allergies As of Date: 06/22/2021 Noted Allergy [...] Fully Assessed Reason for Visit: Patient Question [7597] Prescriptions as of 05/10/2022 - levothyroxine (SYNTHROID) [...] daily. - mometasone furoate(NASONEX 50 MCG/ACTUATION SPRAY) [place] twice in each nostril once daily. - [...] 12/16/2018 Encounter Status:Closed by NEEMA HIGGINBOTHAM on 05/10/22NoEast Liverpool City HospitalTal [id number] Visit (ENDOMN) CANELO PATHAK ([id number]) 1965 F Date Time Provider Department 06/16/21 1:20 PM ASAD ANSARI During your visit today, we recorded the following information about you: Pulse Blood pressure Weight 87/minute 168/97 128.7 kg Aracelis Rivers Ma 06/16/2021 12:23 PM Signed Thank you for choosing the [facility] Department of Endocrinology, Diabetes and Metabolism. Did you know that you need to call 48 hours in advance of your scheduled visit, if you are unable to make your appointment? The Endocrinology and Metabolism [place] thanks you for your commitment, because patients not showing to their appointment results in a lost opportunity for patients to receive [facility] health care at the [facility]. To Cancel an appointment, please choose one of the following: - Call the Appointment Call Center at [phone] - From [employer], Go to Appointments ? Cancel Appts If cancelling, consider your need to reschedule to prevent further delays in your care. To Schedule an appointment, please choose one of the following: - Call the Appointment Call Center at [phone] - From [employer], Go to Appointments ? Request an Appt Asad Ansari MD 06/16/2021 1:56 PM Signed Last Visit: This is the first visit. Ms. Pathak is here for follow up regarding her DM Type 2 and hypothyroidism. Current Immunizations: Most Recent Immunizations Administered Date(s) Administered COVID-19 vaccine, age 12+ yr (Simpleshow - PURPLE TOP) 09/23/2020 PHYSICAL EXAMINATION: BP [...] mouth daily before breakfast. - Vitamin D [place] (Simple-Fill) Take 1 capsule by mouth daily with food. - montelukast (SINGULAIR) 10 mg tablet Take 10 mg by mouth daily at bedtime. - MULTIVIT-MINERALS/FERROUS GLUC (CENTRAM-CARE ORAL) Take by mouth twice daily. - esomeprazole mag trihydrate(NEXIUM 40 MG CAP) Take one(1) capsule daily. - mometasone furoate(NASONEX 50 MCG/ACTUATION SPRAY) [place] twice in each nostril once daily. - [...] focal signs. No tremors. (more content not included)...NormalGuernsey [facility] Hospital Metabolic Panelon 66-25-4178Oiceuoo [Mass/Vol]4.6 g/dL Normal3.9-4.9CSelect Medical Specialty Hospital - AkronComment on above:Performed By: #### CMP, HBA1C, FREET3, FT4, TSH #### [address] [place] [address] BVK [Catalytic activity/Vol]83 U/QQxqteh37-383QgxhcpohnWVUMedicine Harrison Community Hospital on above:Performed By: #### CMP, HBA1C, FREET3, FT4, TSH #### [address] [place] [address] CGC [Catalytic activity/Vol]28 U/LNormal7-38[facility] Cross Hospitalment on above:Performed By: #### CMP, HBA1C, FREET3, FT4, TSH #### [address] [address] Bfjwh gap [Moles/Vol]12 mmol/LNormal9-18[facility] Comment on above:Performed By: #### CMP, HBA1C, FREET3, FT4, TSH #### [address] [address] LZX [Catalytic activity/Vol]25 U/KQorggr01-81SygneongcWVUMedicine Harrison Community Hospital on above:Performed By: #### CMP, HBA1C, FREET3, FT4, TSH #### [address] [place] [id number] Jwglbuwqb [Mass/Vol]0.4 mg/dLNormal0.2-1.3Clevelformerly [facility] [place] Comment on above:Performed By: #### CMP, HBA1C, FREET3, FT4, TSH #### [address] [place] [address] Ineedvc [Mass/Vol]10.0 mg/dLNormal8.5-10.2CSelect Medical Specialty Hospital - [facility]ron Comment on above:Performed By: #### CMP, HBA1C, FREET3, FT4, TSH #### [address] [address] Ogamleri [Moles/Vol]102 mmol/YRczqxq30-593AdwhjqcgiWhite Hospital Comment on above:Performed By: #### CMP, HBA1C, FREET3, FT4, TSH #### [address] [place] [address] WU7 [Moles/Vol]27 mmol/PPsuajg30-97WpatxhzosWhite HospitalComment on above:Performed By: #### CMP, HBA1C, FREET3, FT4, TSH #### [address] [address] Mboyksrryv [Mass/Vol]0.74 mg/dLNormal0.58-0.96White HospitalComment on above:Performed By: #### CMP, HBA1C, FREET3, FT4, TSH #### [address] [place] [address] sIBV- Amer.>60NormalCSelect Medical Specialty Hospital - AkronComment on above:Performed By: #### CMP, HBA1C, FREET3, FT4, TSH #### [address] [place] [address] zEMG-All Other Races>60NormalCSelect Medical Specialty Hospital - AkronComcorewell health [facility] on above:Result Comment: eGFR (Estimated GFR) [...] #### CMP, HBA1C, FREET3, FT4, TSH #### [facility] [address], [place] [id number] [phone] [Mass/Vol]106 mg/xTRbia62-85ShmqjwabtWhite Hospital Comment on above:Result Comment: The [place] Diabetes Association (ADA) provides guidance for cutoff [...] Standards of Medical Care in Diabetes 2016, [place] Diabetes Association. Diabetes Care. 2016.39(Suppl 1).Performed By: #### CMP, HBA1C, FREET3, FT4, TSH #### [facility] [address] [place], [place] [id number] [phone] [Moles/Vol]3.9 mmol/LNormal3.7-5.1CSelect Medical Specialty Hospital - AkronComment on above:Performed By: #### CMP, HBA1C, FREET3, FT4, TSH #### [facility] [address] [place], [place] [id number] [phone] [Mass/Vol]7.2 g/dLNormal6.3-8.0[facility] Comment on above:Performed By: #### CMP, HBA1C, FREET3, FT4, TSH #### [place] [phone] [Moles/Vol]141 mmol/BCuahzm986-176SvdbtkrfpWhite Hospital Comment on above:Performed By: #### CMP, HBA1C, FREET3, FT4, TSH #### [place] [phone] nitrogen [Mass/Vol]15 mg/dLNormal7-21[facility] Comment on above:Performed By: #### CMP, HBA1C, FREET3, FT4, TSH #### [place] [address] Ipug T3on 16-78-2307Ncpy T3 [Mass/Vol]2.8 pg/mLNormal2.3-4.1 White HospitalComment on above:Performed By: #### CMP, HBA1C, FREET3, FT4, TSH #### [place] [address] Ajpp T4on 24-28-7682Pnxu T4 [Mass/Vol]2.0 ng/dLHigh0.9-1.7CMercer County Community Hospital on above:Performed By: #### CMP, HBA1C, FREET3, FT4, TSH #### [place] [address] Gnpajcrthq A1con 75-45-0177Ysigtvt [Mass/Vol]169 mg/dLNormal [facility] on above:Result Comment: eAG: (Estimated average glucose) is a calculated value from HgbA1c and is customer service representative teller of the average blood glucose level in the last 2-3 month period.Performed By: #### CMP, HBA1C, FREET3, FT4, TSH #### [place] [address] BkG3p (Bld) [Mass fraction]7.5 %High4.3-5.6CMercer County Community Hospital on above:Result Comment: [place] Diabetes Association guidelines indicate that patients with HgbA1c in the range 5.7-6.4% are at increased risk for development of diabetes, and intervention by lifestyle modif ication may be beneficial. 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, multiple headaches , [...] Signed by: Briana Rosas MD 09/26/18 Final resultNormEvans Army Community Hospital Vital Signs Date TimeVital SignValuePerforming FfdhxnvgiGitpbiib51-59-9924 11:11-0400Body .1 cmDavisergio Dontrell DO Work Phone: [phone] [place], [place] 8633310-30-2025 11:11-0400 Body mass index (BMI) [Ratio]43.7 kg/l4Yuzzv Dontrell DO Work Phone: [phone] [place], [place] 8633310-30-2025 11:11-0400 Body uyyubalvbpm68.5 [degF]Jeff Jon DO Work Phone: [phone])[address] [place], [place] 8633310-30-2025 11:11-0400 Body kdczoy653.29 kgDavisergio Dontrell DO Work Phone: [phone] [place], [place] 8633310-30-2025 11:11-0400 Diastolic blood rqtfzaha59 mm[Hg]Jeff Jon DO Work Phone: [phone])[address] [place], [place] 8633310-30-2025 11:11-0400 Heart rate79 /minDavid Dontrell DO Work Phone: [phone] [place], [place] 8633310-30-2025 11:11-0400 SaO2% (BldA) [Mass fraction]96 %Jeff Jon DO Work Phone: [phone])[address] [place], [place] 8633310-30-2025 11:11-0400 Systolic blood abfighxg897 mm[Hg]Jeff Dontrell DO Work Phone: [phone])[address] [place], [place] 8633310-13-2025 11:50-0400 Body xpkdde592.1 cmDavisergio Dontrell DO Work Phone: [phone] [place], [place] 8633310-13-2025 11:50-0400 Body mass index (BMI) [Ratio]43.7 kg/t4Zlrcs Dontrell DO Work Phone: [phone])[address] [place], [place] 8633310-13-2025 11:50-0400 Body ohfeofvrvcx65.7 [degF]Jeff Jon DO Work Phone: [phone] [place], [place] 8633310-13-2025 11:50-0400 Body apexcv251.29 kgDakorin Jon DO Work Phone: [phone] [place], [place] 8633310-13-2025 11:50-0400 Diastolic blood kjahizyu16 mm[Hg]Jeff Jon DO Work Phone: [phone] [place], [place] 8633310-13-2025 11:50-0400 Heart rate85 /minDavisergio Jon DO Work Phone: [phone] [place], [place] 8633310-13-2025 11:50-0400 SaO2% (BldA) [Mass fraction]99 %Jeff Jon DO Work Phone: [phone] [place], [place] 8633310-13-2025 11:50-0400 Systolic blood nyftwung389 mm[Hg]Jeff Jon DO Work Phone: [phone] [place], [place] 8633310-07-2025 11:15-0400 Diastolic blood mm[Hg]Jeff Jon DO Work Phone: [phone] [place], [place] 8633310-07-2025 11:15-0400 Systolic blood vwniyeke124 mm[Hg]Jeff Jon DO Work Phone: [phone] [place], [place] 8633310-07-2025 10:48-0400 Body .1 cmDakorin Jon DO Work Phone: [phone] [place], [place] 8633310-07-2025 10:48-0400 Body mass index (BMI) [Ratio]43.7 kg/g8Gkjzzkorin Jon DO Work Phone: [phone] [place], [place] 8633310-07-2025 10:48-0400 Body jebrdprdzab31.9 [degF]Jeff Jon DO Work Phone: [phone] [place], [place] 8633310-07-2025 10:48-0400 Body uphpev617.29 kgDakorin Jon DO Work Phone: [phone])[address]10-07-2025 10:48-0400 Heart rate90 /minDavid Girvin DO Work Phone: 1(460)[address] [place], [place] 8633310-07-2025 10:48-0400 SaO2% (BldA) [Mass fraction]97 %Jeff Jon DO Work Phone: 1(691)[address] [place], [place] 8633307-21-2025 09:40-0400 Diastolic blood imzrwvxm66 mm[Hg]Jeff Jon DO Work Phone: 1(084)[address] [place], [place] 8633307-21-2025 09:40-0400 Systolic blood mm[Hg]Jeff Jon DO Work Phone: 1(524)[address] [place], [place] 8633307-21-2025 09:37-0400 Body rzsasp053.1 cmDavid Girvin DO Work Phone: 1(118)[address] [place], [place] 8633307-21-2025 09:37-0400 Body mass index (BMI) [Ratio]46.7 kg/s4Qshjt Girvin DO Work Phone: 1(716)[address] [place], [place] 8633307-21-2025 09:37-0400 Body bsarfa490.45 kgDavid Girvin DO Work Phone: 1(368)[address] [place], [place] 8633307-21-2025 09:37-0400 Heart rate85 /minDavid Girvin DO Work Phone: 1(723)[address] [place], [place] 8633307-21-2025 09:37-0400 Respiratory rate20 /minDavid Girvin DO Work Phone: 1(892)[address] [place], [place] 8633307-21-2025 09:37-0400 SaO2% (BldA) [Mass fraction]96 %Jeff Jon DO Work Phone: 1(974)[address] [place], [place] 8633307-10-2025 11:36-0400 Body bglcuy516.1 cmDavid Girvin DO Work Phone: 1(388)[address] [place], [place] 8633307-10-2025 11:36-0400 Body mass index (BMI) [Ratio]46.4 kg/g9Unssr Girvin DO Work Phone: [phone])[address]07-10-2025 11:36-0400 Body tdpxxemdsdo91.9 [degF]Jeff Jon DO Work Phone: 1(008)[address] [place], [place] 8633307-10-2025 11:36-0400 Body .55 kgDakorin Jon DO Work Phone: 1(666)[address] [place], [place] 8633307-10-2025 11:36-0400 Diastolic blood gxqehmvd38 mm[Hg]Jeff Jon DO Work Phone: 1(415)[address] [place], [place] 8633307-10-2025 11:36-0400 Heart rate90 /minDbalbina Jon DO Work Phone: 1(623)[address] [place], [place] 8633307-10-2025 11:36-0400 SaO2% (BldA) [Mass fraction]95 %Jeff Jon DO Work Phone: 1(515)[address] [place], [place] 8633307-10-2025 11:36-0400 Systolic blood mm[Hg]Jeff Jon DO Work Phone: 1(027)[address] [place], [place] 8633304-21-2025 10:10-0400 Diastolic blood mm[Hg]Jeff Jon DO Work Phone: 1(432)[address] [place], [place] 8633304-21-2025 10:10-0400 Systolic blood mm[Hg]Jeff Jon DO Work Phone: 1(786)[address] [place], [place] 8633304-21-2025 10:05-0400 Body yyrhpl269.1 cmDakorin Jon DO Work Phone: 1(167)[address] [place], [place] 8633304-21-2025 10:05-0400 Body mass index (BMI) [Ratio]45.7 kg/v3Hpdtekorin Jon DO Work Phone: 1(169)[address] [place], [place] 8633304-21-2025 10:05-0400 Body wrrhaiygbde53.9 [degF]Jeff Jon DO Work Phone: 1(008)[address] [place], [place] 8633304-21-2025 10:05-0400 Body rvnzhu019.73 kgDavisergio Shanevin DO Work Phone: [phone])[address]04-21-2025 10:05-0400 Heart rate92 /Juanasergio Acostavin DO Work Phone: [phone])[address] [place], [place] 8633304-21-2025 10:05-0400 Respiratory rate20 /minDkhaisergio Girvin DO Work Phone: [phone])[address] [place], [place] 8633304-21-2025 10:05-0400 SaO2% (BldA) [Mass fraction]96 %Jeff Dontrell DO Work Phone: 1419)[address] [place], [place] 8633304-14-2025 14:36-0400 Body nhpzuh215.1 cmDavisergio Acostavin DO Work Phone: [phone])[address] [place], [place] 8633304-14-2025 14:36-0400 Body mass index (BMI) [Ratio]46.9 kg/t7Srrip Dontrell DO Work Phone: 1419)[address] [place], [place] 8633304-14-2025 14:36-0400 Body iwcxceoxsfq29.6 [degF]Jeff Acostacassi DO Work Phone: 1(193)[address] [place], [place] 8633304-14-2025 14:36-0400 Body uznthr879.91 kgDakorin Shanevin DO Work Phone: 1(322)[address] [place], [place] 8633304-14-2025 14:36-0400 Diastolic blood mm[Hg]Jeff Jon DO Work Phone: 1419)[address] [place], [place] 8633304-14-2025 14:36-0400 Heart rate99 /Josué Shanevin DO Work Phone: 1419)[address] [place], [place] 8633304-14-2025 14:36-0400 Systolic blood bzxogmxb468 mm[Hg]Jeff Jon DO Work Phone: 1(559)[address] [place], [place] 8633303-14-2025 09:55-0400 Body phnrel545.1 cmDavisergio Shanevin DO Work Phone: 1(260)[address] [place], [place] 8633303-14-2025 09:55-0400 Body ixejjs673.73 kgDavid Dontrell DO Work Phone: [facility]02-26-2025 10:31-0500 Body tqawva449.1 cm[facility]02-26-2025 10:31-0500Body mass index (BMI) [Ratio]46 kg/h6FtknyglqeUniversity [facility]02-26-2025 10:31-0500Body bwrzfy279.64 kg[facility]01-24-2025 11:14-0500Body fxsjox588.1 cm[facility]01-24-2025 11:14-0500Body mass index (BMI) [Ratio]46 kg/y8NkgrspltfUniversity Hospitals [facility] 06-13-2024 11:14-0500Body fuzshzulsqj08.8 [degF][facility]01-24-2025 11:14-0500Body oqajpd142.64 kg[facility] 06-13-2024 11:14-0500Diastolic blood jiuprowq01 mm[Hg][facility]01-24-2025 11:14-0500Heart rate92 /[facility] 06-13-2024 11:14-7247HmG5% (BldA) [Mass fraction]94 %[facility]01-24-2025 11:14-0500Systolic blood xkagxmsr404 mm[Hg][facility]01-14-2025 11:45-0500Body ymljon554.81 kgUniversity [facility]01-14-2025 11:45-0500Diastolic blood groctutd69 mm[Hg][facility]01-14-2025 11:45-0500Heart rate91 /[facility]01-14-2025 11:45-4827LnW6% (BldA) [Mass fraction]97 %[facility]01-14-2025 11:45-0500Systolic blood nmxhiuwq080 mm[Hg] [facility]11-22-2024 11:52-0500Body laknmp794.1 cm [facility]11-22-2024 11:52-0500Body mass index (BMI) [Ratio]45.1 kg/m8MjbbatkynUniversity Hospitals [facility]11-22-2024 11:52-0500Body snkzhsbupax49.2 [degF][facility]11-22-2024 11:52-0500Body fqliew820.92 kgUniversity [facility]11-22-2024 11:52-0500Diastolic blood fluheiiu30 mm[Hg][facility]11-22-2024 11:52-0500 Heart rate86 /[facility]11-22-2024 11:52-1932JjM7% (BldA) [Mass fraction]94 %[facility]11-22-2024 11:52-0500 Systolic blood dgldlhap236 mm[Hg][facility]11-06-2024 11:37-0500Body .1 cm[facility]11-06-2024 11:37-0500Body mass index (BMI) [Ratio]45.4 kg/r4TxkcmchihUniversity Hospitals Beachwood [facility] Center11-06-2024 11:37-0500Body apwzikkbbfy16.4 [degF][facility]11-06-2024 11:37-0500Body ayotqo068.83 kgUniversity [facility]11-06-2024 11:37-0500Diastolic blood difniwhq36 mm[Hg][facility]11-06-2024 11:37-0500Heart rate78 /[facility]11-06-2024 11:37-0500Respiratory rate20 /[facility]11-06-2024 11:37-2609WaM5% (BldA) [Mass fraction]97 %[facility]11-06-2024 11:37-0500Systolic blood fnjxbohe173 mm[Hg][facility]09-24-2024 11:53-0400Diastolic blood elbaohwy15 mm[Hg]DO Jeff Jon Work Phone: [facility]09-24-2024 11:53-0400 Heart rate83 /Emilie Jon Work Phone: [facility]09-24-2024 11:53-0400 SaO2% (BldA) [Mass fraction]97 %DO Jeff Jon Work Phone: 1(682)[address]09-24-2024 11:53-0400 Systolic blood bqeesoic872 mm[Hg]DO Jeff Jon Work Phone: 1(093)[address]08-26-2024 15:56-0400 Diastolic blood cumepdtn11 mm[Hg]DO Jeff Shanecassi Work Phone: 1(857)[address]08-26-2024 15:56-0400 Heart rate82 /minDO Jeff Shanecassi Work Phone: 1(330)[address]08-26-2024 15:56-0400 SaO2% (BldA) [Mass fraction]97 %DO Jeff Jon Work Phone: 1(492)[address]08-26-2024 15:56-0400 Systolic blood vfcahdqi125 mm[Hg]DO Jeff Shanecassi Work Phone: 1(014)[address]07-31-2024 14:19-0400 Diastolic blood qyxwosmc11 mm[Hg]DO Jeff Jon Work Phone: 1(167)[address]07-31-2024 14:19-0400 Heart kasc886 /minDO Jeff Jon Work Phone: 1(199)[address]07-31-2024 14:19-0400 SaO2% (BldA) [Mass fraction]96 %DO Jeff Jon Work Phone: 1(231)[address]07-31-2024 14:19-0400 Systolic blood cyymlqfy523 mm[Hg]DO Jeff Jon Work Phone: 1(553)[address]07-17-2024 13:53-0400 Body .05 kg[facility]07-17-2024 13:53-0400 Diastolic blood pmevcrin13 mm[Hg][facility]07-17-2024 13:53-0400Heart rate91 /minUniversity Hospitals Beachwood [facility] Center07-17-2024 13:53-1674CoY3% (BldA) [Mass fraction]97 %[facility] 12-05-2023 13:53-0400Systolic blood lbewitmy694 mm[Hg][facility]06-10-2024 14:41-0400Body cblcip414.1 cm[facility] 10-29-2023 14:41-0400Body mass index (BMI) [Ratio]45.7 kg/y9MbgghzdfpUniversity [facility]als [facility]06-10-2024 14:41-0400Body yihhaz795.73 kg[facility]06-10-2024 14:41-0400Diastolic blood geqthfcv06 mm[Hg][facility]06-10-2024 14:41-0400Heart rate87 /[facility]06-10-2024 14:41-0400Respiratory rate18 /[facility]06-10-2024 14:41-7634IgY4% (BldA) [Mass fraction]97 %[facility]06-10-2024 14:41-0400Systolic blood lxnbemme440 mm[Hg] [facility]05-08-2024 14:12-0400Body saosmi161.1 cm [facility]05-08-2024 14:12-0400Body mass index (BMI) [Ratio]46 kg/j1BezeelhgyUniversity Hospitals [facility]05-08-2024 14:12-0400Body stzglhfggea13.1 [degF][facility]05-08-2024 14:12-0400Body .64 kgUniversity [facility]05-08-2024 14:12-0400Diastolic blood anzydchy98 mm[Hg][facility]05-08-2024 14:12-0400 SaO2% (BldA) [Mass fraction]95 %[facility]05-08-2024 14:12-0400Systolic blood jrgjreci373 mm[Hg][facility] 08-28-2023 11:23-0400Diastolic blood ixgylvpf22 mm[Hg][facility]04-09-2024 11:23-0400Heart rate89 /[facility] 08-28-2023 11:23-3335SvW8% (BldA) [Mass fraction]98 %[facility]04-09-2024 11:23-0400Systolic blood zztzratr412 mm[Hg][facility]04-09-2024 10:49-0400Body .1 cm[facility]04-09-2024 10:49-0400Body mass index (BMI) [Ratio]45.7 kg/z2BkxphbzwnUniversity Hospitals Beach[facility] Center04-09-2024 10:49-0400Body giaala007.73 kg[facility]12-21-2023 14:10-0500Diastolic blood psvefhkw80 mm[Hg] Casper Nguyen [facility]12-21-2023 14:10-0500Heart rate81 /minBrajeffry Patrick [facility]12-21-2023 14:10-0500Mean blood xpqcaiin505 mm[Hg]Casper Nguyen [facility]12-21-2023 14:10-0500 Respiratory rate14 /minBrajeffry Patrick [facility]12-21-2023 14:10-0500 Systolic blood qiallwbk728 mm[Hg]Casper Nguyen [facility]10-30-2023 14:00-0400Body xmjedw996.1 cmChristdanna Terrazas Other [employer] Other 10-30-2023 14:00-0400Body mass index (BMI) [Ratio] 45.09 kg/a1Fpjwsgzqusy Mk Other [employer] Other 10-30-2023 14:00-0400Body qedqtwjdizk80.8 [degF] Christopher Mk Other [employer] Other 10-30-2023 14:00-0400Body wfaeuy558.93 kgChristop Mk Other [employer] Other 10-30-2023 14:00-0400Respiratory rate20 /min Zenondanna Phillipsdano Other [employer] Other 10-30-2023 14:00-1281JvG2% (BldA) [Mass fraction]98 % Zenondanna Phillipsdano Other [employer] Other 10-05-2023 08:10-0400Body mgejec711.1 cmDakorin Jon Other [employer] Other 10-05-2023 08:10-0400Body mass index (BMI) [Ratio] 45.26 kg/e4CgsacJeff Jon Other [employer] Other 10-05-2023 08:10-0400Body woxmxpzkuib22.8 [degF]Jeff Jon Other [employer] Other 10-05-2023 08:10-0400Body digkgt377.38 kgDakorin Jon Other [employer] Other 10-05-2023 08:10-0400Diastolic blood akjcuayj555 mm[Hg]Jeff Jon Other [employer] Other 10-05-2023 08:10-0400Respiratory rate18 /minDavisergio Jon Other [employer] Other 10-05-2023 08:10-8354ReD9% (BldA) [Mass fraction]99 % Jeff Jon Other 226.800.1776[employer] Other 10-05-2023 08:10-0400Systolic blood vhxoyeet523 mm[Hg] Jeff Jon Other [employer] Other 06-06-2023 16:50-0400Body .1 cmAmbkirby Manuel Other [employer] Other 06-06-2023 16:50-0400Body mass index (BMI) [Ratio] 45.09 kg/x9PjmjpLacie Manuel Other [employer] Other 06-06-2023 16:50-0400Body wmbyktifbhq95 [degF]Lacie Manuel Other [employer] Other 06-06-2023 16:50-0400Body qfpitn080.93 kgLacie Manuel Other [employer] Other 06-06-2023 16:50-0400Diastolic blood cnanotkh41 mm[Hg] Lacie Manuel Other [employer] Other 06-06-2023 16:50-0400Respiratory rate18 /minLacie Manuel Other [employer] Other 06-06-2023 16:50-3448VlA5% (BldA) [Mass fraction]95 % Lacie Manuel Other [employer] Other 06-06-2023 16:50-0400Systolic blood vfsneqqh248 mm[Hg] Lacie Manuel Other [employer] Other 05-30-2023 08:45-0400Body .1 cmChristopher Mk Other [employer] Other 05-30-2023 08:45-0400Body mass index (BMI) [Ratio] 44.76 kg/q4Gmhtmqesqnx Mk Other [employer] Other 05-30-2023 08:45-0400Body xzrqeuyfima40.8 [degF] Christopher Mk Other [employer] Other 05-30-2023 08:45-0400Body .02 kgChristopher Mk Other [employer] Other 05-30-2023 08:45-0400Diastolic blood xadcfemx76 mm[Hg] Christopher Mk Other [employer] Other 05-30-2023 08:45-0400Respiratory rate20 /min Christopher Mk Other [employer] Other 05-30-2023 08:45-0295OnN6% (BldA) [Mass fraction]98 % Christopher Mk Other [employer] Other 05-30-2023 08:45-0400Systolic blood dfzklozu943 mm[Hg] Christopher Mk Other [employer] Other 04-26-2023 10:15-0400Body rngpie334.1 cmChristopher Mk Other [employer] Other 04-26-2023 10:15-0400Body mass index (BMI) [Ratio] 43.43 kg/d6Muzipdaugyv Mk Other [employer] Other 04-26-2023 10:15-0400Body izmthasvuni73.8 [degF] Ryleyer Mk Other [employer] Other 04-26-2023 10:15-0400Body lpqaxq842.39 kgChristopher Mk Other [employer] Other 04-26-2023 10:15-0400Diastolic blood nsruogpg147 mm[Hg]Ryleyer Mk Other [employer] Other 04-26-2023 10:15-0400Respiratory rate20 /min Carlos Phillipsdano Other [employer] Other 04-26-2023 10:15-7376MaK7% (BldA) [Mass fraction]100 % Carlos Phillipsdano Other [employer] Other 04-26-2023 10:15-0400Systolic blood fnuqlysf011 mm[Hg] Carlos Phillipsdano Other [employer] Other 03-24-2023 13:35-0400Body tqcguk513.1 Ashley Manuel Other [employer] Other 03-24-2023 13:35-0400Body mass index (BMI) [Ratio] 26.62 kg/r7QoibfLacie Manuel Other [employer] Other 03-24-2023 13:35-0400Body gekwfqwlllu12.8 [degF]Lacie Manuel Other [employer] Other 03-24-2023 13:35-0400Body xgbfyl01.58 kgAmbkirby Manuel Other [employer] Other 03-24-2023 13:35-0400Respiratory rate18 /minLacie Manuel Other [employer] Other 03-24-2023 13:35-5656JiJ4% (BldA) [Mass fraction]98 % Lacie Manuel Other [employer] Other 02-22-2023 13:20-0500Body bcqeol855.1 cmDakorin Jon Other [employer] Other 02-22-2023 13:20-0500Body mass index (BMI) [Ratio] 43.26 kg/f3Ftbbpkorin Jon Other [employer] Other 02-22-2023 13:20-0500Body ayxigsqpaja68.1 [degF]Jeff Jon Other [employer] Other 02-22-2023 13:20-0500Body vcqdef455.94 kgDakorin Jon Other [employer] Other 02-22-2023 13:20-0500Diastolic blood jdsobcrx74 mm[Hg] Jeff Jon Other [employer] Other 02-22-2023 13:20-0500Respiratory rate18 /minDavisergio Jon Other [employer] Other 02-22-2023 13:20-7971PcK7% (BldA) [Mass fraction]99 % Jeff Jon Other [employer] Other [id number] 13:20-0500Systolic blood cjovuxhm219 mm[Hg] Jeff Jon Other [employer] Other 11-22-2022 13:40-0500Body .1 cmDakorin Jon Other [employer] Other 11-22-2022 13:40-0500Body mass index (BMI) [Ratio] 43.26 kg/b7PypgbJeff Jon Other [employer] Other 11-22-2022 13:40-0500Body cmeaeqchdyj38.5 [degF]Jeff Jon Other [employer] Other 11-22-2022 13:40-0500Body fuqlmu775.94 kgDakorin Jon Other [employer] Other 11-22-2022 13:40-0500Diastolic blood wkqstamt923 mm[Hg]Jeff Jon Other [employer] Other 11-22-2022 13:40-0500Respiratory rate18 /minDavisergio Jon Other [employer] Other 11-22-2022 13:40-1727VmK9% (BldA) [Mass fraction]98 % Jeff Jon Other [employer] Other 11-22-2022 13:40-0500Systolic blood mm[Hg] Jeff Jon Other [employer] Other 07-19-2022 12:00-0400Body qwknwe998.1 cmHeidi Jacky Other [employer] Other 07-19-2022 12:00-0400Body mass index (BMI) [Ratio] 45.09 kg/x9Oamuq Jacky Other [employer] Other 07-19-2022 12:00-0400Body xwqrnakpsjq58.9 [degF]Lorena Jacky Other [employer] Other 07-19-2022 12:00-0400Body kywbnr263.93 kgHeidi Jacky Other [employer] Other 07-19-2022 12:00-0400Diastolic blood stauogob43 mm[Hg] Lorena Jacky Other [employer] Other 07-19-2022 12:00-0400Respiratory rate20 /minHeidi Jacky Other [employer] Other 07-19-2022 12:00-5980VuQ1% (BldA) [Mass fraction]99 % Lorena Jacky Other [employer] Other 07-19-2022 12:00-0400Systolic blood mm[Hg] Lorena Jacky Other [employer] Other 06-02-2022 11:30-0400Body vvqfyz488.1 cmDavid Dontrell Other [employer] Other 06-02-2022 11:30-0400Body mass index (BMI) [Ratio] 46.09 kg/r2IpensJeff Jon Other [employer] Other [id number] 11:30-0400Body mrrpduynzja07.8 [degF]Jeff Jon Other [employer] Other 06-02-2022 11:30-0400Body lpuyex069.65 kgDakorin Jon Other [facility] Other 06-02-2022 11:30-0400Diastolic blood ifhfhohg39 mm[Hg] Jeff Jon Other [employer] Other [id number] 11:30-0400Respiratory rate18 /minDbalbina Jon Other [employer] Other [id number] 11:30-3075LoV9% (BldA) [Mass fraction]96 % Jeff Jon Other [facility] Other 06-02-2022 11:30-0400Systolic blood mm[Hg] Jeff Jon Other [employer] Other [id number] 13:46-0400Body nqehcx866.83 kgLeena Seymour MD Work Phone: [facility]05-20-2022 13:46-0400Diastolic blood mm[Hg]Leena Seymour MD Work Phone: [facility]05-20-2022 13:46-0400Heart rate94 /min Leena Seymour MD Work Phone: [facility]05-20-2022 13:46-0400Systolic blood olhneodz245 mm[Hg]Leena Seymour MD Work Phone: [facility]10-26-2021 13:40-0400Body ywmjrp173.1 cmDakorin Jon Other [employer] Other 10-26-2021 13:40-0400Body mass index (BMI) [Ratio] 45.51 kg/w6EalbkJeff Jon Other [employer] Other 10-26-2021 13:40-0400Body vvxatpnngio06.7 [degF]Jeff Jon Other [employer] Other 10-26-2021 13:40-0400Body ggehvf591.06 kgDakorin Jon Other [employer] Other 10-26-2021 13:40-0400Diastolic blood atgjmrgm14 mm[Hg] Jeff Jon Other [employer] Other 10-26-2021 13:40-0400Respiratory rate20 /minDbalbina Jon Other [employer] Other 10-26-2021 13:40-2135UdH8% (BldA) [Mass fraction]98 % Jeff Jon Other [employer] Other 10-26-2021 13:40-0400Systolic blood joreauhr156 mm[Hg] Jeff Jon Other [employer] Other 10-04-2021 11:00-0400Body liluct396.1 cmChristopher Mk Other [employer] Other 10-04-2021 11:00-0400Body mass index (BMI) [Ratio] 44.93 kg/p9Nptweeyoxwr Mk Other [employer] Other 10-04-2021 11:00-0400Body dhtfmdeovfw77.5 [degF] Carlos Phillipsdano Other [employer] Other 10-04-2021 11:00-0400Body xbwnov425.47 kgChristopher Mk Other [employer] Other 10-04-2021 11:00-0400Diastolic blood vglyilcg37 mm[Hg] Carlos Phillipsdano Other [employer] Other 10-04-2021 11:00-0400Respiratory rate20 /min Carlos Terrazas Other [employer] Other 10-04-2021 11:00-8399EiC3% (BldA) [Mass fraction]99 % Carlos Terrazas Other [employer] Other 10-04-2021 11:00-0400Systolic blood mm[Hg] Carlos Phillipsdano Other [employer] Other Encounters Encounter DateEncounter TypeCare ProviderFacilityStart: 03-19-2025 End: 00-27-6019qfampduihjSeegk Girvin DO Work Phone: [facility] 03-19-2025 End: 61-07-9542Qdyiivv encounter procedureJeff Jon DO-[facility] [place] Work Phone: Start: 03-02-2025 End: 18-22-4500tunuftdhzuCjwqb Girvin DO Work Phone: [facility] Work Phone: Start: 03-02-2025 End: 85-58-8118Hcwjyfr encounter procedureDakorin Lilli Acostacassi DO-[facility] Work Phone: Start: 02-24-2025 End: 34-87-2251ybixmudwcoDhmfb Gircassi DO Work Phone: [facility] Work Phone: Start: 02-24-2025 End: 43-64-3578Xludano encounter procedureDavisergio Reeder Dontrell BETH-[facility] Work Phone: Start: 02-09-2025 End: 11-83-8722zirzhhxrzqMROZTP [facility] Start: 74-52-3345Eey-patient / Non-visitGeormalissa Espino MD-[facility] Work Phone: Start: 01-08-2025 End: 61-89-9538dzdvkgjteqDNES [facility] Nort[facility]art: 72-46-2023Ooi-patient / Non-visitGeormalissa Espino MD-[facility] Work Phone: Start: 01-05-2025 End: 99-85-7612hlfmlsstzrLMVMQG [facility] Start: 12-08-2024 End: 74-64-1821mvsajuujixSsnvw Girvin DO Work Phone: [facility] Work Phone: Start: 12-08-2024 End: 51-91-8788Blpolgg encounter procedureLorena Moore APRN [facility] Work Phone: Start: 11-27-2024 End: 66-57-0165sllafqlzsiSrhvx Girvin DO Work Phone: [facility] Work Phone: Start: 11-27-2024 End: 09-39-3642Egcilsd encounter procedureDavid C Gircassi DO-[facility] [place] Work Phone: Start: 11-26-2024 End: 36-15-7414efwqbjwwvkCausq GirvinFacility:[facility] Start: 06-64-8164Ejn-patient / Non-visitDavid C Dontrell DO-[facility] Work Phone: Start: 25-50-4616Zpn-patient / Non-visitDavid C Gircassi DO-[facility] Work Phone: Start: 10-24-2024 End: 58-81-0478bwytxgzgcfDpjrz Girvin DO Work Phone: [facility] Work Phone: Start: 10-24-2024 End: 68-07-2972Fdplxfc encounter procedureDavid Girvin DO Work Phone: [facility] [place] Work Phone: Start: 09-08-2024 End: [id number] Girvin DO Work Phone: [facility] Work Phone: Start: 09-08-2024 End: [id number] encounter procedureDavid Girvin DO Work Phone: [facility] Work Phone: Start: [phone]-patient / Non-visitDavid Girvin DO Work Phone: [facility] Work Phone: Start: 09-01-2024 End: 57-27-1986zbyuuijqofEprhc Girvin DO Work Phone: [facility] Work Phone: Start: 09-01-2024 End: [id number] encounter procedureDavid Girvin DO Work Phone: [facility] Work Phone: Start: 08-25-2024 End: [id number] [facility] Start: 61-51-4838Gap-patient / Non-visitDavid Girvin DO Work Phone: [facility] Work Phone: Start: [phone]-patient / Non-visitDavid Girvin DO Work Phone: [facility] Work Phone: Start: 08-01-2024 End: [id number] Girvin DO Work Phone: [facility] Work Phone: Start: 08-01-2024 End: [id number] ReferredDavid Girvin DO Work Phone: [facility] Work Phone: Start: 07-30-2024 End: [id number] encounter procedureDavid Girvin DO Work Phone: [facility]-CT Scan [facility] [place] Work Phone: Start: 07-30-2024 End: 23-62-0325kikrupkfdlOcwaz Girvin DO Work Phone: [facility] Work Phone: Start: 07-16-2024 End: 17-47-2559vvmxhtzrlmVcybqulyj [facility] Work Phone: Start: 07-16-2024 End: 13-18-2052Xkucklf [facility] Gastro Work Phone: Start: 73-84-9163wcvkjszsxcVlsimhvjrMercy Health St[facility] Work Phone: Start: 87-50-8689Rww-patient / Non-visitFirgreenlands Physician Group-[facility] Work Phone: Start: 06-13-2024 End: 38-67-6662caehaarshlYyienzkgmMercy Health St[facility] Work Phone: Start: 06-13-2024 End: 15-82-0735Qxpkotn encounter procedureSelect [facility] Family [facility] [place] Work Phone: Start: 06-03-2024 End: 90-82-6148vxlbatarctNnucepicvMercy Health St. [facility] Work Phone: Start: 06-03-2024 End: 59-79-4739Wctamme encounter procedureSelect [facility] Pain Mgmt Work Phone: Start: 04-11-2024 End: 99-52-9730Pqbyppt encounter procedureSelect [facility] Family Medicine [place] Work Phone: Start: 03-26-2024 End: 31-70-5633gaakrinsuiKvathnfidMercy Health St. [facility] Work Phone: Start: 03-26-2024 End: 78-00-7769Bssclzu encounter procedureSelect [facility] Work Phone: Start: 09-47-4021Bfm-patient / Non-visitSelect [facility]ty [facility] Work Phone: Start: 02-12-2024 End: 14-90-0801ytsqvikiuhEI David Girvin Work Phone: [facility] Work Phone: Start: 02-12-2024 End: 45-03-4481Gimqyia encounter procedureDO Jeff Jon Work Phone: [facility] Pain Management Work Phone: Start: 02-05-2024 End: 52-70-3592hrpmnrcmqmGO David Girvin Work Phone: [facility] Work Phone: Start: 02-05-2024 End: 54-46-3381Ensveoc encounter procedureDO Jeff Jon Work Phone: [facility] Work Phone: Start: 98-27-7581Zuw-patient / Non-visitDO Jeff Jon Work Phone: [facility] Work Phone: Start: 04-92-6043jdradtdbwyEihlxShahzad Jon DO [facility]: 01-14-2024 End: 28-88-4069uavphdhvoqNY David Girvin Work Phone: [facility] Work Phone: Start: 01-14-2024 End: 45-11-8060Pzmahic encounter procedureDO Jeff Jon Work Phone: [facility] Work Phone: Start: 88-93-7066clunuhkzpjIhfhgShahzad Jon DO Facility:[facility]: 54-78-1806Uth-patient / Non-visitDO Jeff Jon Work Phone: [facility] Work Phone: Start: 12-27-2023 End: 05-71-1833smgwkewvitZY Jeff Jon Work Phone: [facility] Work Phone: Start: 12-27-2023 End: 96-73-5781Bfpxdre encounter procedureDO Jeff Jon Work Phone: [facility] Work Phone: Start: 12-19-2023 End: 09-72-0860poiwuopugoHA Jeff Jon Work Phone: [facility] Work Phone: Start: 12-19-2023 End: 57-42-5767Jklrmtt encounter procedureDO Jeff Jon Work Phone: [facility] Pain Management Work Phone: Start: 68-79-4941pusyddgaubTwlwe Clark Girvin DO [facility]: 12-12-2023 End: 82-34-8572kpdecsxfpfXmzxm Clark Girvin DOFacility:[facility] HospitalStart: 12-05-2023 End: 82-06-9408synkotohxqZFVera Jon Work Phone: [facility] Work Phone: Start: 12-05-2023 End: 11-20-1206Hqdvwpq encounter procedureIv[facility] Pain Management Work Phone: Start: 10-29-2023 End: 97-21-4995kebmdlvdivZfqadubewHenry County Hospital Work Phone: Start: 10-29-2023 End: 08-29-8610Fjgkgic encounter procedureSpike Physician [facility] Family Medicine [place] Work Phone: Start: 11-01-3080Fzg-patient / Non-visitSpike Physician Group-[facility] Work Phone: Start: 10-23-2023 End: 63-17-4614fctxvikaueOZIDOK Ulises JIANGNot AvailableStart: 10-09-2023 End: 50-77-3364Rzrkmckjc Result EncounterHijose Jiang MD Work Phone: noms External Department UnsolicitedStart: 10-09-2023 End: 25-06-7904Blephoist Result EncounterHijose Jiang MD Work Phone: noms External Department UnsolicitedStart: 09-26-2023 End: 53-70-0306ysehkuivduTindxbqnbHenry County Hospital Work Phone: Start: 09-26-2023 End: 99-72-3693Ejcurug encounter procedureSelect [facility]ty [facility] GroupGood [facility] Work Phone: Start: 09-24-2023 End: 04-94-2992yowlwqpobrAHZEGT H TIMMISNot AvailableStart: 09-18-2023 End: 45-82-6892hfxlgwmavuYDMWTVT A SAMANTHANot AvailableStart: 09-05-2023 End: 59-84-1079hrypozwbdvXLIYWE H TIMMISNot AvailableStart: 09-04-2023 End: 18-29-2842Evnfnrbfg Result EncounterHilary Ulises Jiang MD Work Phone: noms External Department UnsolicitedStart: 09-04-2023 End: 56-90-3380Xjgnvyguy Result EncounterHilary Ulises Jiang MD Work Phone: noms External Department UnsolicitedStart: 08-28-2023 End: 02-99-3525ikfnjcmsqjIstvphtqlHenry County Hospital Work Phone: Start: 08-28-2023 End: 86-38-9296Jaughzy encounter procedureSelect [facility] Phys[facility] GroupGood [facility] Work Phone: Start: 05-79-8647Imd-patient / Non-visitSelect [facility]ty [facility] Work Phone: Start: 08-21-2023 End: 15-47-2048jrwamesdawPDZGGR H TIMMISNot AvailableStart: 06-29-2023 End: 99-66-1756sdxhihooibOmgur Girvin Other [facility] [employer] Other Start: 92-14-0609Rwzemcedt encounterDakorin EpsteinG [facility] Hospitaltart: 05-10-2023 End: 13-51-1115jkivurnfbbVCVera NguyenFacility:FTMCStart: 05-10-2023 End: 93-61-4469Vltt Hilton Nguyen [facility] Start: 04-30-2023 End: 98-18-3026pbwanbkotmBUWX D HILLSNot AvailableStart: 04-24-2023 End: 93-19-5034hieimklhwePPZY D HILLSNot AvailableStart: 04-18-2023 End: 72-15-6668atcnzednquHLOF D HILLSNot AvailableStart: 04-04-2023 End: 16-24-7087laopklolxuSyhck Girvin Other nort [employer] Other Start: 10-03-0668Difwzcnxm encounterDavid DontrellTisha Family Medicine [place]vueStart: 03-19-2023 End: 32-65-5495tpsaxvskuyCqyftfoolsc Mk Other [facility] [employer] Other Start: 51-51-5260Zifbzt outpatient visit 15 minutes Carlos Valle Pulmonary DiseaseStart: 02-22-2023 End: 68-55-8220owikwbirbnStyyo Dontrell Other nort [employer] Other Start: 98-21-0516Hkvgva outpatient visit 25 minutes Jeff Aragon [facility] [place]vueStart: 11-24-2022 End: 87-96-3586qqisjgxlowMpjne Dontrell Other nort [employer] Other Start: 24-33-8011Tjzrdtwwt encounterDavid DontrellTisha Family Medicine BellevueStart: 10-24-2022 End: 00-43-5820fwjcmqrgvrIzuio Keller Other [employer]in[employer] Other Start: 39-95-2339Dakgzr outpatient visit 15 minutes Lacie Pereira [facility] ClydeStart: 10-17-2022 End: 02-10-9645akndbalwktYdotabpachj Mk Other [facility] [employer] Other Start: 19-27-1271Fbrkaz outpatient visit 15 minutes Christopher ViviannoFPG Pulmonary DiseaseStart: 32-90-3893pwrqixazdlFfGris Garcestoshia TraboulssiFacility:204[address]Shgdn: 45-51-0969Unmmntu encounter procedureDavisergio Jon Work Phone: [phone]-Rpwqi [facility] [address] DO Work Phone: Start: 78-22-1355aybjnaszvmXv. David Clark Girvin Facility:[id number]: 43-40-4273Qnurbtrzq for other preprocedural examination [facility] HospitalStart: 03-85-7589Jzkcinpcs for preprocedural cardiovascular examinationHIARRY St. [facility] Hospitaltart: 09-14-2022 Encounter for preprocedural laboratory examinationHIARRY St[facility] Hospitaltart: 52-19-0854Ldxgcmywv for preprocedural respiratory examination [facility]: 09-13-2022 End: 46-62-7978jzrznnispyQzerqyyvsho Mk Other [facility] [employer] Other Start: 45-05-7087Chshau outpatient visit 25 minutes Christopher Leonard Pulmonary DiseaseStart: 12-10-4990mndkwagzafEJ DAVID GIRVINFacility:B9Efxzj: 09-08-2022 End: 48-03-9797Iofkszzuf for preprocedural laboratory examinationDR JEFF JON Facility:T0Ynhnh: 09-08-2022 End: 19-65-9390eqcwrrxwyxLK JEFF [facility] [employer] Other Start: 28-62-2251Fiwnhlqmb encounterDavid GircassiFPG Family Medicine [place]vueStart: 09-01-2022 End: 43-19-3678oobbnzamovHtrfl Dontrell Other [employer] Other Start: 08-79-8921Ygeyvyunq encounterDavid GircassiFPG Family Medicine [place]vueStart: 08-21-2022 End: 04-31-9954wgkgiqohrvGESBJAZ M MANONFacility:H6Hzkbk: 08-18-2022 End: 96-98-4865rgyujohizqVwGris Coleman [employer] Other Start: 01-03-9833Wgczqdjxa encounterDavid GircassiFPG Family Medicine [place]vueStart: 08-17-2022 End: 35-89-2929cygxfljngrEPFSCG DIAB .Facility:J5Mtguc: 08-14-2022 End: 08-35-0977ahaxxcukekUmofx Dontrell Other [employer] Other Start: 01-54-2350Tdrzoavuw encounterDavid GircassiG Family Medicine [place]Start: 08-11-2022 End: 01-28-0126fauaejasvgAgixr Dontrell Other [employer] Other Start: 83-91-0620Mjrssd outpatient visit 15 minutes Lacie KalebHU [facility] ClydeStart: 31-63-0212Yknwfmbwm encounterDavid GircassiFPG Family Medicine [place]Start: 08-07-2022 End: 18-94-1897jhgurrzmpdEckqt Gircassi Other [employer] Other Start: 04-62-7927Vswfqlwpc encounterDavid GirvinFPG Family Medicine [place]Start: 07-12-2022 End: 08-69-0398krfkndwsptBipxt Dontrell Other [employer] Other Start: 00-90-5874Fiogam outpatient visit 25 minutes Jeff Aragon [facility] [place]vueStart: 33-45-5870Gfyhkzmqt encounter Jeff EpsteinTisha Family Medicine [place]vueStart: 07-10-2022 End: 84-74-8378sadfqzxoswRZ DAVID GIRVINFacility:B6Zhyrp: 06-14-2022 End: 46-48-4511vimihkwlewDqzye Dontrell Other [employer] Other Start: 86-74-4097Bjoqwgkir encounterDakorin Aragon [facility] [place]vueStart: 06-07-2022 End: 22-89-8344ccokyjpkijHgmou Dontrell Other [employer] Other Start: 32-03-2243Ydmrefdyz encounterDakorin JonANNELTisha [facility] [place]vueStart: 04-11-2022 End: 35-97-1671dsesuvkuxwYzcea Dontrell Other [employer] Other Start: 42-93-0487Obrdyr outpatient visit 25 minutes Jeff Aragon [facility] [place]Start: 04-05-2022 End: 73-94-6562ywcjwfsjfoQIMohsen Slaterity:S3Frsjv: 04-04-2022 End: 76-49-9763ppmigozlfeYhwyw Dontrell Other [employer] Other Start: 29-03-3493Eksrgussm encounterDakorin JonANNELTisha [facility] [place]vueStart: 04-03-2022 End: 35-23-6444pzqzqkdgauKbqfh Dontrell Other [employer] Other Start: 08-09-0258Uealosxmv encounterDakorin JonANNELTisha [facility] [place]vueStart: 03-21-2022 End: 52-60-8082qmwlflhbocAiyue Dontrell Other [facility] [employer] Other Start: 19-77-8665Lwmvzrhpl encounterDavid Margo Family [facility] [place]vueStart: 12-09-2021 End: 50-77-1909cefntmtgzrFrwpb Girvin Other [facility] [employer] Other Start: 56-94-1220Alshigirf encounterDavid LucianG Family [facility] [place]vueStart: 12-06-2021 End: 28-00-9370weghgwqpxgKntoi Jacky Other [facility] [employer] Other Start: 25-36-2415Ftyuex outpatient visit 25 minutes Lorena GastFPG Pulmonary DiseaseStart: 26-95-7197Swjwpczab encounterHeidi GastFPG Pulmonary DiseaseStart: 11-29-2021 End: 29-55-0974rucdyrptoqOE JEFF Laicility:B3Uqune: 10-20-2021 End: 43-03-4621mjmzpmwogmWkdjr Girvin Other [facility] [employer] Other Start: 35-66-3844Mjlpbv outpatient visit 25 minutes Jeff Aragon [facility] [place]vueStart: 10-13-2021 End: 79-13-8021zfzkgdkrilJKWQE CLARK GIRVINFacility:[facility] Start: 10-13-2021 End: 11-78-9383rtmovdrrqfKfrhj Chhay APRN.STORE RECEIVING CLERK Work Phone: EndocrinologyComment on above:Type 2 diabetes mellitus with hyperglycemia, without long-term current use of insulin (HCC) (Primary Dx); Heraclio's diseaseStart: 10-13-2021 End: 42-23-8981Pkxubstggfoa consultation with Agustin Jimenez APRN.STORE RECEIVING CLERK Work Phone: CC CHRIS FHtart: 68-05-0403Ocpplyvut encounterPuttimoteo Jimenez APRN.CNP Work Phone: EndocrinologyComment on above:AppointmentStart: 10-07-2021 End: 10-45-2492hpxfmhiufuQCJEV CLARK GIRVINFacility:[facility] Start: 10-07-2021 End: 27-41-8146Lpkrwwb encounter Shan Seymour MD Work Phone: RheumatologyComment on above:Fibromyalgia (Primary Dx); ALDEN (generalized anxiety disorder)Start: 37-45-6141Ffbyyutvh encounterAsad Ansari MD Work Phone: EndocrinologyComment on above:Lab OrdersStart: 64-72-8097irgkxpunikXAMohsen Laicility:B8Morrv: 25-50-5367Vfywelnus encounterDavisergio Aragon [facility] BellueStart: 09-28-2021 End: 99-70-0482mcotbzgaanCLPaige [facility] [employer] Other Start: 09-20-2021 End: 30-71-2438cpihcdwjjiEsjzkzkhubl Mk Other [employer] Other Start: 87-99-8466Dtedgutoo encounterChristopher AvendanoFPG Pulmonary DiseaseStart: 08-22-2021 End: 61-32-2135nntgbsyorxFjzaawdnbnx Mk Other [employer] Other Start: 29-09-3834Phscrmzor encounterDavisergio Aragon Family [facility] BellueStart: 07-22-2021 End: 84-93-6900gjiktphmyqUUDPF SKUGORFacility:[facility]tart: 07-14-2021 End: 97-16-7254nwiokhryiiChyvt Girvin Other [employer] Other Start: 64-48-5660Eegprisqy encounterDavid Margo [facility] [place]Start: 07-04-2021 End: 30-83-0772rgneilfenqQbefh Girvin Other [employer] Other Start: 80-32-1263Amtssaozx encounterDavid Margo [facility] [place]Start: 06-28-2021 End: 88-20-4207jdcoqleuwcOueer Girvin Other [facility] [employer] Other Start: 66-82-9978Gyeycxotg encounterDavid DontrellFPG Family Medicine [place]vueStart: 96-02-4274Ciahjemof encounterAsad Ansari MD Work Phone: EndocrinologyComment on above:Patient QuestionStart: 06-16-2021 End: 86-97-2058ityquwismtSWFKU CLARK GIRVINFacility:[facility] Start: 06-16-2021 End: 21-81-4419mygmqlhrifMZHBL SKUGORFacility:[facility]tart: 05-25-2021 End: 23-15-6519mwozctcnczGtivz Girvin Other [facility] [employer] Other Start: 02-75-2255Mfxczphpr encounterDavid DontrellFPG [facility] [place]Start: 05-11-2021 End: 90-10-2138ciuxhmrastTcrxw Girvin Other [facility] [employer] Other Start: 43-46-9220Ihxmgsama encounterDavid DontrellFPG [facility] Medicine [place]Start: 04-27-2021 End: 43-41-4255jvfakrzmyxWapte Girvin Other [employer] Other Start: 88-77-3243Ictjmrviq encounterDavid DontrellFPG Family Medicine [place]Start: 04-19-2021 End: 08-01-7788netcaqsclcFokitv Cundiff Other Nort [employer] Other Start: 92-07-5572Jdstpkntw encounterCarl Valdivia [facility] ClinicStart: 16-37-2104Yvcfcgdlp encounterDakarlos Julian [facility] ClinicStart: 31-37-6851Jqwhxb outpatient visit 15 minutesDavisergio Aragon [facility] [place]vueStart: 33-73-6692Mbfdeqcsr encounterDavisergio Aragon [facility] BellueStart: 60-78-4836Wwiuqv outpatient visit 15 minutesChristopher AvendanoFPG Pulmonary DiseaseStart: 09-26-2018 End: 38-02-4189Wmlfxxb encounter procedureDAKORIN Reeder [facility] Procedures DateProcedureProcedure DetailPerforming ClinicianStart: 10-07-1528Zxruzxml tomography of abdomen and pelvis with contrastDakorin Jon DO Work Phone: Start: 99-59-9155S-ray of lumbar spine, four viewsDO Jeff Jon Work Phone: Start: 54-88-3334Vejoc x-ray of pelvis and lower extremityDO Jeff Jon Work Phone: Start: 45-95-9974IVR HEAD/BRAIN WO/W CONTRJennie Jiang MD Work Phone: Start: 87-46-0298Ug orbit sella/post fossa/ear w/contrast matrlHijose Jiang MD Work Phone: Start: 10-44-0445Phmdi depression screening assessment Leena Seymour MD Work Phone: Start: 78-46-6121Kdh brain brain stem w/o w/contrast materialDAVID DONTRELLAbdominal hysterectomyCasper Nguyen cholecystectomyCasper Nguyen laparoscopyCasper Nguyen Myringotomy and insertion of T tubeCasper Nguyen comment on above:d2IkosnbdppcwsoCjveyflf Jones Plan of Treatment DateCare ActivityDetailAuthorStart: 58-70-0399Jutai [facility] Centertart: 78-21-2623HzufasmvitoihtbmwplxqixzhrYU EGD/Colonoscopy (Not Applicable)[facility]: 20-34-2060Mgpbzxx referral [facility] Work Phone: Start: 42-54-3272NJKGDVLY SCREENDIABETES SCREEN [facility] Centertart: 12-43-1931Vrlvigq [facility] Work Phone: Start: 71-54-0315Ubtmndu [facility] Work Phone: Start: 62-89-9299Atspn depression screening assessment DEPRESSION SCREENINGMercy Health St. Vincent Medical Centertart: 79-81-7428Kdpdeijtdt A1c/Hemoglobin.total in HiqssVFB3UKmlvjxkms ClinicStart: 00-79-4566Nluuwulyy vaccinationINFLUENZA (#1)[facility] Centertart: 11-25-2021 End: 38-35-5568B4 FREE BLDT3 FREE BLD Lab Routine Heraclio's disease Expected: 11/25/2021, Expires: 01/25/2022[facility] Work Phone: Comment on above:Expected: 11/25/2021, Expires: 01/25/2022tart: 11-25-2021 End: 87-70-4494K8 FREE/FREE THYROXT4 FREE/FREE THYROX Lab Routine Heraclio's disease Expected: 11/25/2021, Expires: 01/25/2022[facility] Work Phone: Comment on above:Expected: 11/25/2021, Expires: 01/25/2022tart: 11-25-2021 End: 44-61-0031Ncoicyboiqv [Units/volume] in Serum or PlasmaTSH BLD Lab Routine Heraclio's disease Expected: 11/25/2021, Expires: 01/25/2022[facility] Work Phone: Comment on above:Expected: 11/25/2021, Expires: 01/25/2022tart: 10-07-2021 End: 42-68-4327BMBMTNH ELECTROPHORESIS SERUM W/[facility] Work Phone: Comment on above:Expected: 10/07/2021, Expires: 12/07/2021tart: 10-05-2021 End: 02-21-0067Dlvejlnnfecmp metabolic 2000 panel - Serum or PlasmaCOMP METABOLIC PANEL Lab Routine Controlled type 2 diabetes mellitus without complication, without long-term current use of insulin (HCC) Expected: 10/05/2021, Expires: 12/05/2021[facility] Work Phone: Comment on above:Expected: 10/05/2021, Expires: 12/05/2021tart: 10-05-2021 End: 93-07-9952Mbiygoxfxo A1c/Hemoglobin.total in BloodHGB A1C Lab Routine Controlled type 2 diabetes mellitus without complication, without long-term curr ent use of insulin (HCC) Expected: 10/05/2021, Expires: 12/05/2021[facility] Work Phone: Comment on above:Expected: 10/05/2021, Expires: 12/05/2021tart: 10-05-2021 End: 68-52-9379G0 FREE BLDT3 FREE BLD Lab Routine Acquired hypothyroidism Expected: 10/05/2021, Expires: [address] [place] [address] Work Phone: Comzzzo on above:Expected: 10/05/2021, Expires: 12/05/2021tart: 10-05-2021 End: 66-09-4485B8 FREE/FREE THYROXT4 FREE/FREE THYROX Lab Routine Acquired hypothyroidism Expected: 10/05/2021, Expires: [address] [place] [address] Work Phone: Comment on above:Expected: 10/05/2021, Expires: 12/05/2021tart: 10-05-2021 End: 84-70-7785Xrfigwqxfue [Units/volume] in Serum or PlasmaTSH BLD Lab Routine Acquired hypothyroidism Expected: 10/05/2021, Expires: [facility] Work Phone: Comment on above:Expected: 10/05/2021, Expires: 12/05/2021tart: 78-29-2658QHUUDROYGZ ASSESSMENTDEPRESSION ASSESSMENTMercy Health St. Vincent Medical Centertart: 38-38-6745NMRPK-19 VACCINE (3 - Booster for Pfizer series)COVID-19 VACCINE (3 - Booster for Pfizer series)[facility] Centertart: 41-30-9394PTVUB-19 VACCINE (3 - Booster for Pfizer series)COVID-19 VACCINE (3 - Booster for Pfizer series)[facility] Centertart: 70-27-3610XPHIWNGO VACCINE (1 of 2)SHINGRIX VACCINE (1 of 2)[facility] Centertart: 46-86-8174HNCAVAZEX (FIT-DNA)COLOGUARD (FIT-DNA)[facility] Centertart: 42-00-1928NauuhqnamgxIOBBHRXCMHOZovjrairt Clinic Start: 11-60-6187TCBWPRAPLG CANCER SCREENINGCOLORECTAL CANCER SCREENINGCleDunlap Memorial Hospitaltart: 83-78-9451DA COLONOGRAPHYCT COLONOGRAPHYMercy Health St. Vincent Medical Centertart: 23-98-6382RJTUY OCCULT BLOODFECAL OCCULT BLOODMercy Health St. Vincent Medical Centertart: 09-10-2012 LIPID SCREENLIPID SCREENCleDunlap Memorial Hospitaltart: 57-94-0456ICBXALXTHYYNG SIGMOIDOSCOPYCleDunlap Memorial Hospitaltart: 03-92-2097ZziqgigaptrCYVTQMEUCEdvaowgad ClinicStart: 69-24-9867IIJ TESTINGHPV TESTINGCleDunlap Memorial Hospitaltart: 09-10-1988 PAP TESTINGPAP TESTINGCleDunlap Memorial Hospitaltart: 72-15-0651LTRQMXATO B (1 of 3 - Risk 3-dose series)HEPATITIS B (1 of 3 - Risk 3-dose series)[facility] Start: 73-19-7314Rqynf microalbumin profileDTAP,TDAP,TD (1 - Tdap)[facility] Centertart: 28-22-9411EIWJRK PCP TEAM CHRONIC DISEASE VISITANNUAL PCP TEAM CHRONIC DISEASE VISITMercy Health St. Vincent Medical Centertart: 43-01-0064Xvohhgend B surface antibody levelLDL CHOLESTEROLMercy Health St. Vincent Medical Centertart: 07-20-2064KOD SCREENINGHIV SCREENINGMercy Health St. Vincent Medical Centertart: 12-76-3116Jgqnf depression screening assessment DEPRESSION SCREENINGBarberton Citizens Hospitalrt: comp foot exam completed DIABETIC FOOT EXAMMercy Health St. Vincent Medical Centertart: 45-41-6872Eqpjnhilc B screeningURINE ALBUMIN:CREATININE RATIOMercy Health St. Vincent Medical Centertart: 14-61-5243Lpowhsqij C antibody, confirmatory testDILATED RETINAL EXAMMercy Health St. Vincent Medical Centertart: 09-10-1973 PNEUMOCOCCAL (1 - PCV)PNEUMOCOCCAL (1 - PCV)[facility] Centertart: 1967 HEPATITIS B (1 of 3 - 3-dose series)HEPATITIS B (1 of 3 - 3-dose series) [facility] Medical CenterAntibody to Scl-70 measurementUniversity Hospitals Beachwood Medical Center Comprehensive metabolic 1999 panel - Serum or [facility] HospitalComprehensive metabolic 2000 panel - Serum or [facility] HospitalComprehensive metabolic 2000 panel - Serum or [facility] HospitalComprehensive metabolic 1999 panel - Serum or Plasma [facility] Medical CenterCT Abdomen and Pelvis WO contrastUniversity Hospitals Beachwood Medical CenterInsulin [Units/volume] in Serum or [facility] HospitalInsulin [Units/volume] in Serum or [facility] HospitalPatient referralSelect [facility] Work Phone: Rheumatoid factor [Units/volume] in Serum or Plasma [facility] Medical CenterUrine cultureUniversity Hospitals Beachwood Medical Center XR Hip - left 2 City HospitalXR Hip - right 2 Views [facility] CenterXR Lumbar spine 4 City HospitalXR Shoulder - left [facility] Immunizations Immunization DateImmunizationNotesCare KddsapkjSzbidcho36-95-4591hyawqwg toxoid, reduced diphtheria toxoid, and acellular pertussis vaccine, adsorbedDavid Girvin DO Work Phone: [facility]10-26-2021influenza, seasonal, injectablePatient ObjectionDakarlos Jordan Other [employer] Other [id number]-12 Vaccine Pfizer - Documentation Purposes OnlyChristopher Mk Other [facility]04-15-2021COVID-19 Vaccine Pfizer - Documentation Purposes OnlyChristopher Mk Other [facility]04-22-2019Rocephin 500 mgChristopher Mk Other [employer] Other [id number] per 15 mgChristopher Mk Other [employer] Other 09-22-2015TB TestChristopher Mk Other [employer] Other [id number] toxoid, reduced diphtheria toxoid, and acellular pertussis vaccine, adsorbedChristopher Mk Other [facility] CenterNEGATED: Highlighted row has not occurred!90-77-9203vnxqathsh, seasonal, injectablePatient Objection Jeff Jon Other [facility] Payers DatePayer CategoryPayerPolicy [id number]-[id number] [id number] Care HMO (unspecified) AETNA [id number] Health InsuranceAETNA KYRA CHOICE POS II [id number] 2020-Present [phone] [address] [place] [address] [id number]8-2778Niswapu Health Insurance [id number] [id number] 2..1.882922.3.57[id number] 2..1.966720.3.57[id number] 2..1.458629.3.579.[id number] 2.0.1.874465.3.579.2.97071-96-5921Afopotp8153836 2.0.1.244396.3.579.2.35763-88-1738Iaestgy9713819 2..1.611711.3.579.[id number] 2.0.1.291251.3.579.2.30851-02-1624Hvlnwvw6575188 2.0.1.333183.3.579.[id number] 2.0.1.526088.3.579.2.78339-34-6339Upzfmrf4896857 2.840.1.319852.3.579.2.51489-35-7977Auhhjba398982895 2.840.1.665796.3.579.2.55761-27-5446Vtwgohx974862555 2.0.1.674286.3.579.2.473[id number] 2..1.231117.3.579.2.[id number] 2.0.1.088036.3.579.2.76950-54-8536Mewgsta9560262 2..1.494475.3.579.2.975455-32-4232Xofrvas0849878 2..1.491917.3.579.2.207128-86-8370Ickhtww4471843 2..1.768694.3.579.2.246328-24-0074Ddbnqkq2733932 2..1.955980.3.579.2.175241-07-2114Gulrtgq6371234 2..1.122990.3.579.2.766635-60-2838Hpirkwq013874 2..1.521516.3.579.2.551531-65-3946Cralddk557486 2..1.736950.3.579.2.136284-93-0541Gakkydr738864 2.0.1.755622.3.579.2.241307-54-8635Vfqmpns323074 2.0.1.080372.3.579.2.076338-37-6350Soupcgo492188583 2.16.840.1.197666.3.579.2.70658-91-0009Obwbgoc379701236 2.16.840.1.567887.3.579.2.43600-62-1990Sryczzt297580288 2..840.1.280302.3.579.2.13661-76-9825Viwkvph240744665 2.16.840.1.614630.3.579.2.37228-23-9858Tttsomn Health [id number] 2.16840.1.934113.19UnknownAETNAPrivate Health [id number] [id number] 2.840.1.842199.3.579.2.376Tgszlll41787255 2.0.1.724001.3.579.2.511Vinyhpx28654508 2.840.1.380085.3.579.2.531 Gyehvqp24968515 2.0.1.329289.3.579.2.531 Social History DateTypeDetailFacilityStart: 09-20-2015 End: 38-89-2279Avbggdg smoking status NHISNever smoked tobaccoUniversity Hospitals Beachwood Medical Center Start: 09-20-2015 End: 47-65-9600Sgalvlk use and exposureSmokeless tobacco non-userMercy Health St. Vincent Medical Centertart: 06-16-2021 End: 82-34-6123Pjnkquw intakeNot AskedMercy Health St. Vincent Medical Centertart: 12-52-3283Zch Assigned At BirthFemaleCSelect Medical Specialty Hospital - Akrontart: 09-23-2021 End: 76-49-5406Pezfadru to SARS-CoV-2 (event)Not sureMercy Health St. Vincent Medical Centertart: 10-13-2021 End: 46-10-8231Uglnolr intakeEx-drinker (finding)[facility] Centertart: 74-82-7127Rjjfnpb SDOH Alcohol CommentrarelyCleveland ClinicStart: 00-22-6827Yxf Assigned At [facility] Hospitaltart: 06-03-2024 End: 74-13-2674UunZvvczo (finding)[facility] Centertart: 84-55-5749Wgjugttmv beverage intakeCurrent drinker of alcohol (finding)[facility] HealthcareStart: 96-56-6682Nismcvf of Social functionNOMS HealthcareStart: 34-33-1267Myhyxje CommentRarelyNOMS HealthcareStart: 23-01-2557AyqDednnxKERN HealthcareStart: 94-97-8129Hjafoq identityIdentifies as female gender (finding) [facility] HealthcareStart: 95-75-4236Rcbvmzi smoking status NHISEx-smokerNOMS HealthcareHistory of tobacco useCurrent smokerNOMS HealthcareHistory of tobacco useCigarette SmokerNOMS Healthcare Functional Status TaizKchftwftjxDmnqdyIpnxzmpf09-97-0716Eiimuzrtpc StatusN/[facility] Clinical Notes 12-16-2011 to 03-02-2025 Note Date & JhesUwhiXaopaogm37-32-8440 Evaluation note* Author Jeff Jon [facility] 2024 12:50pmThe above note written by ___Gail Salu____ acting as human recorder, note dictated by Dr. Jones .I performed the above HPI, ROS, and Examination. I formulated and dictated the treatment plan and was present for entire encounter. Jeff Jon D.O. Author Jeff Jon [facility] 20[facility] 12:00pmThe above note written by ___Gail Saul____ acting as human recorder, note dictated by Dr. Jones .I performed the above HPI, ROS, and Examination. I formulated and dictated the treatment plan and was present for entire encounter. Jeff Jon D.O. [facility] Work Phone: 1(820) 565-143510-07-2025 Evaluation note* Author Jeff Jon [facility] 2024 12:00pmThe above note written by ___Gail Saul____ acting as human recorder, note dictated by Dr. Jones .I performed the above HPI, ROS, and Examination. I formulated and dictated the treatment plan and was present for entire encounter. Jeff Jon D.O. 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 [facility]08-18-2025 NoteUT Cardiology - [facility] Subjective Canelo Pathak is [...] Asymmetric SNHL (sensorineural hearing loss) Osteoarthritis Other chcf (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 Palpitation Polyarthralgia Pulsatile tinnitus [...] and GERD who was admitted to the [facility] on 08/05/2024 with chest pressure [...] She is not ill-appearing. (more content not included)...[facility]07-10-2025 Evaluation note* Author Jeff Jon [facility] 2024 12:34pmThe above note written by ___Gail Saul____ acting as human recorder, note dictated by Dr. Jones .I performed the above HPI, ROS, and Examination. I formulated and dictated the treatment plan and was present for entire encounter. Jeff Jon D.O. Author Jeff Jon [facility] 2024 10:35amThe above note written by ___Gail Saul____ acting as human recorder, note dictated by Dr. Jones .I performed the above HPI, ROS, and Examination. I formulated and dictated the treatment plan and was present for entire encounter. Jeff Jon D.O. [facility] Work Phone: 1(190) 450-124507-10-2025 Evaluation note* Author Jeff Jon [facility] 2024 12:34pmThe above note written by ___Gail Saul____ acting as human recorder, note dictated by Dr. Jones .I performed the above HPI, ROS, and Examination. I formulated and dictated the treatment plan and was present for entire encounter. Jeff Jon D.O. [facility] Work Phone: 1(555) 699-720604-14-2025 Evaluation note* Author Jeff Jon [facility] 2024 3:45pmThe above note written by ___Gail Saul____ acting as human recorder, note dictated by Dr. Jones .I performed the above HPI, ROS, and Examination. I formulated and dictated the treatment plan and was present for entire encounter. Jeff Jon D.O. [facility] Work Phone: 1(695) 593-950304-14-2025 Evaluation note* Author Jeff Jon [facility] CenterAuthoredApril 2024 3:45pmThe above note written by ___Gail Saul____ acting as human recorder, note dictated by Dr. Jones .I performed the above HPI, ROS, and Examination. I formulated and dictated the treatment plan and was present for entire encounter. Jeff Jon D.O. Author Jeff Jon [facility] CenterAuthoredJune 2024 10:35amThe above note written by ___Gail Saul____ acting as human recorder, note dictated by Dr. Jones .I performed the above HPI, ROS, and Examination. I formulated and dictated the treatment plan and was present for entire encounter. Jeff Jon D.O. [facility] Work Phone: 1(769) 758-793604-07-2025 NoteUT Cardiology - [facility] Subjective Canelo Pathak is a 58 y.o. year old female patient being seen to establish care. Patient complains of chest pain and palpitations. Patient states she was in In patient 2 weeks ago at [facility] due to the palpitation. Patient she states she has had no change in how she feels. Still feeling palpitations, fatigued, SOB. Patient Active Problem List Diagnosis Abnormal taste in mouth Acid reflux Allergic rhinitis due to animal hair and dander Anxiety Asthma Binge eating disorder BMI 50.0-59.9, adult ([facility]) CFS (chronic fatigue syndrome) Cholesteatoma of attic of ear, right Diabetes (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) UTI (urinary tract infection) Vitamin D [...] and GERD who was admitted to the [facility] on 08/05/2024 with chest pressure [...] Disp: , Rfl: cet (more content not included)...[facility]03-[facility] [place] [address] [place] [address] CT Scan Report Signed Patient: Canelo Pathak MR#: [id number] : 1965 Acct:[id number] Age/Sex: 58 / F ADM Date: 5 Loc: CT Room: Type: [facility] Attending Dr: Carol Alegria DO Copies [...] Cameron Worthy M.D.07/30/2024 1:18 PM Dictation Location: [place] [address] Transcribed By: [facility] 07/30/24 1318 Dictated By: Cameron Worthy MD 07/30/24 1314 Signed By: 07/30/24 1318 [facility] Work Phone: 1(255) 504-352602-06-2025 Chief complaint+Reason for visit Narrative * Chief [...] Seasonal allergies September 08, 2024 9:5 8am [facility] Work Phone: 1(952) 970-905201-24-2025 Evaluation note* Author Jeff Jon [facility] 2024 2:07pmThe above note written by ___Gail Saul____ acting as human recorder, note dictated by Dr. Jones .I performed the above HPI, ROS, and Examination. I formulated and dictated the treatment plan and was present for entire encounter. Jeff Jon D.O. [facility] Work Phone: 1(616) 212-869301-24-2025 Evaluation note* Author Jeff Jon [facility] 2024 1:07pmThe above note written by ___Gail Saul____ acting as human recorder, note dictated by Dr. Jones .I performed the above HPI, ROS, and Examination. I formulated and dictated the treatment plan and was present for entire encounter. Jeff Jon D.O. [facility] Work Phone: 1(203) 640-880711-22-2024 Evaluation note* Author Jeff Jon [facility] 2023 4:16pmI performed the above HPI, ROS, and Examination. I formulated and dictated the treatment plan and was present for entire encounter. Jeff Jon D.O. [facility] Work Phone: 1(374) 444-449611-22-2024 Evaluation note* Author Jeff Jon [facility] 2023 4:16pmI performed the above HPI, ROS, and Examination. I formulated and dictated the treatment plan and was present for entire encounter. Jeff Jon D.O. Author Jeff Jon [facility] 2024 1:07pmThe above note written by ___Gail Saul____ acting as human recorder, note dictated by Dr. Jones .I performed the above HPI, ROS, and Examination. I formulated and dictated the treatment plan and was present for entire encounter. Jeff Jon D.O. [facility] Work Phone: 1([phone]) 882-183106-10-2024 Evaluation note* Author Jeff Jon [facility] 2023 3:26pmThe above note written by ___Gail Saul____ acting as human recorder, note dictated by Dr. Jones .I performed the above HPI, ROS, and Examination. I formulated and dictated the treatment plan and was present for entire encounter. Jeff Jon D.O. Author Jeff Jon [facility] 2023 3:16pmThe above note written by ___Gail Saul____ acting as human recorder, note dictated by Dr. Jones .I performed the above HPI, ROS, and Examination. I formulated and dictated the treatment plan and was present for entire encounter. Jeff Jon D.O. [facility] Work Phone: 1(256) [phone] Evaluation note* Author Jeff Jon [facility] 2023 3:26pmThe above note written by ___Gail Saul____ acting as human recorder, note dictated by Dr. Jones .I performed the above HPI, ROS, and Examination. I formulated and dictated the treatment plan and was present for entire encounter. Jeff Jon D.O. [facility] Work Phone: 1(172) 386-102505-08-2024 Hospital Discharge instructionsAmbulatory Orders* Referral to Pain Management Time Frame: 09/26/23, Location: None [facility] Work Phone: 1(122) 166-267004-09-2024 Evaluation note* Author Jeff Jon [facility] 2023 11:59amThe above note written by ___Gail Saul____ acting as human recorder, note dictated by Dr. Jones .I performed the above HPI, ROS, and Examination. I formulated and dictated the treatment plan and was present for entire encounter. Jeff Jon D.O. [facility] Work Phone: 1([phone]) 461-149504-09-2024 Evaluation note* Author Jeff Jon [facility] CenterAuthoredApril 2023 11:59amThe above note written by ___Gail Saul____ acting as human recorder, note dictated by Dr. Jones .I performed the above HPI, ROS, and Examination. I formulated and dictated the treatment plan and was present for entire encounter. Jeff Jon D.O. Author Jeff Jon [facility] CenterAutLehigh [facility] 2023 3:16pmThe above note written by ___Gail Saul____ acting as human recorder, note dictated by Dr. Jones .I performed the above HPI, ROS, and Examination. I formulated and dictated the treatment plan and was present for entire encounter. Jeff Jon D.O. [facility] Work Phone: [phone]) [phone] Evaluation note* Encounter Date Diagnosis Assessment Notes Treatment Notes Treatment Clinical Notes Jun, Elevated blood pressure (ICD-10 - R03.0) [employer] Other 12-21-2023 Evaluation + Plan noteExtracted from:Title: [...] with any questions or concerns that arise. [facility]11-15-2023 Evaluation note* Encounter Date Diagnosis Assessment Notes Treatment Notes Treatment Clinical Notes Mar, Other chronic pain (ICD-10 - G89 .29) Mar,ERD (gastroesophageal reflux disease) (ICD-10 - K21.9) Mar,sthma (ICD-10 - J45.909) [employer] Other 10-30-2023 Evaluation note* Encounter Date Diagnosis Assessment Notes Treatment Notes Treatment Clinical Notes Feb, Asthma (ICD-10 - J45.909) Feb,Seasonal allergies (ICD-10 - J30.2) Feb,ERD (gastroesophageal reflux disease) (ICD-10 - K21.9) [employer] Other 10-05-2023 Evaluation note* Encounter Date Diagnosis [...] disease) (ICD-10 - K21.9)Continue to follow with call center dispatcher and take above medication as directed. Feb,Other chcf (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 (ICD-10 - Z79.899) Feb,Hyperlipidemia, [...] 27.0. She did try to contact her special collections librarian who prescribed the once weeklydose to see why the dose was so low, but she was told she had to go in for an appointment, and she did not do this. I would like her to increase her vitamin D supplement so in addition I asked her [facility] OTC Vitamin D3 2000 IU and [...] variant or something in the balance center. [employer] Other 06-06-2023 Evaluation note* Encounter Date Diagnosis [...] understanding and is agreeable to treatment plan. [employer] Other 05-30-2023 Evaluation note* Encounter Date Diagnosis Assessment Notes Treatment Notes Treatment Clinical Notes September, Asthma (ICD-10 - J45.909) September,Seasonal allergies (ICD-10 - J30.2) September,ERD (gastroesophageal reflux disease) (ICD-10 - K21.9) [employer] Other 04-26-2023 Evaluation note* Encounter Date Diagnosis Assessment Notes Treatment Notes Treatment Clinical Notes Aug, Asthma (ICD-10 - J45.909) Aug,Seasonal allergies (ICD-10 - J30.2) Aug,ERD (gastroesophageal reflux disease) (ICD-10 - K21.9) [employer] Other 03-24-2023 Evaluation note* Encounter Date Diagnosis [...] water inside ear after shower may use chair inspector on lowest cool setting to blow dry. Follow up with PCP or UC if no improvement in the next 2-3 days. Immediate eval for severe ear pain, severe headache, neck pain/stiffness, pain, erythema, or swelling behind the ear, fever, N/V, hearing loss, fever, or any other new or concerning symptoms. Patient verbalizes understanding and is agreeable to treatment plan. [employer] Other 03-20-2023 Evaluation note* Encounter Date Diagnosis [...] with Prednisone. Jul,Other10:38 AM - 10:46 AM [employer] Other 02-22-2023 Evaluation note* Encounter Date Diagnosis Assessment Notes Treatment Notes Treatment Clinical Notes Jun, Elevated blood pressure (ICD-10 - R03.0) [employer] Other 02-22-2023 Evaluation note* Encounter Date Diagnosis [...] with above medication daily as directed. Jun,Other chcf (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 (ICD-10 - Z79.899) Jun,Nocturia [...] her to discuss this pain with her DYNAMOMETER TESTER ENGINE when seen in July (2022) and her gastro doctor when she has the colonoscopy. She voices that she had endometriosis in the past and was told it could return, this does feel violeta lar to that, so she will discuss it with her special collections librarian. Jun,Elevated blood pressure (ICD-10 - R03.0)Her blood [...] ofthe intestine. She is following with a CHEF ASSISTANT (Cass Cheney) in [place], [place]. She has to do a stool [...] do this. She has not seen an DYNAMOMETER TESTER ENGINE in a year and a half but [...] I did recommend she buy Soto at [facility] and apply this to her hands at night. [employer] Other 01-25-2023 Evaluation note* Encounter Date Diagnosis Assessment Notes Treatment Notes Treatment Clinical Notes May, Asthma (ICD-10 - J45.909) [employer] Other 11-22-2022 Evaluation note* Encounter Date Diagnosis Assessment Notes Treatment Notes Treatment Clinical Notes Mar, Hypothyroidism, unspecified (ICD -10 - E03.9) She voices that she is not going to return to see the com writer for evaluation. She voices that her results [...] once weekly that was ordered by her DYNAMOMETER TESTER ENGINE and she would like this office to take over filling this prescription. I will order a Vitamin D level to be done in three months. Mar,ther chcf (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 (ICD-10 - Z79.899) Mar,Hyperlipidemia, [...] She agrees and a referral is provided. [employer] Other 11-01-2022 Evaluation note* Encounter Date Diagnosis Assessment Notes Treatment Notes Treatment Clinical Notes Mar, Hypothyroidism, unspecified (ICD -10 - E03.9) [employer] Other 11-01-2022 Evaluation note* Encounter Date Diagnosis Assessment Notes Treatment Notes Treatment Clinical Notes Mar, Asthma (ICD-10 - J45.909) Mar,GERD (gastroesophageal reflux disease) (ICD-10 - K21.9) [employer] Other 07-19-2022 Evaluation note* Encounter Date Diagnosis Assessment Notes Treatment Notes Treatment Clinical Notes Nov, Asthma (ICD-10 - J45.909) Nov,easonal allergies (ICD-10 - J30.2) [employer] Other 06-02-2022 Evaluation note* Encounter Date Diagnosis [...] E03.9)Again, she voices that she saw the com writer recently and was on 2 of the [...] uses the Fluticasone nasal spray daily. Oct,ther terminal operations 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 (ICD-10 - Z79.899) Oct,Weight [...] can return to discuss this if needed. [employer] Other 05-26-2022 NoteHNO ID: [id number] Author: Anila Jimenez APRN.[facility] Service: ? Author Type: Nurse Practitioner Type: Progress Notes Filed: 10/13/2021 4:47 PM Note Text: ENDOCRINOLOGY, DIABETES AND METABOLISM DIABETES FOLLOW UP VISIT This Team Access Model visit is a phone encounter and Canelo Pathak has consented to this virtual encounter. This is a virtual visit using [employer] video visit. It is a required patient-provider [...] daily. - mometasone furoate(NASONEX 50 MCG/ACTUATION SPRAY) [place] twice in each nostril once daily. - cetirizine hcl(ZYRTEC 10 MG TAB) Take one(1) tablet daily. - fluticasone/salmeterol(ADVAIR DISKUS 250 MCG-50 MCG/DOSE FOR INHALATION) Take one(1) inhalation twice daily; rinse and gargle mouth with water after each use. No current facility-administered medications for this visit. Immunization History Administered Date(s) Administered COVID-19 vaccine, age 12+ yr ([employer] - PURPLE TOP) 09/02/2020 09/23/2020 Social History [...] 6-7 years ago, only medicated till 2020 Ehraclio dx in 2016 Concerns/ Chief complaints: Labs [...] >=60 mL/min/1.73m? 103 Corrected (more content not included)...[facility]05-26-2022 History of Present illness Narrative* Anila Jimenez APRN.STORE RECEIVING CLERK - 10/13/2021 4:15 PM EDT ENDOCRINOLOGY, DIABETES & METABOLISM DIABETES FOLLOW UP VISIT This Team Access Model visit is a phone encounter and Canelo Pathak has consented to this virtual encounter. This is a virtual visit using [employer] video visit. It is a required patient-provider [...] capsule daily. mometasone furoate(NASONEX 50 MCG/ACTUATION SPRAY) [place] twice in each nostril once daily. cetirizine hcl(ZYRTEC 10 MG TAB) Take one(1) tablet daily. fluticasone/salmeterol(ADVAIR DISKUS 250 MCG-50 MCG/DOSE FOR INHALATION) Take one(1) inhalation twice daily; rinse and gargle mouth with water after each use. No current facility-administered medications for this visit. Immunization History Administered Date(s) Administered COVID-19 vaccine, age 12+ yr ([employer] - [facility]) 09/02/2020 09/23/2020 Social History Tobacco Use Smoking status: Never Smoker Smokeless tobacco: Never Used Substance Use Topics Alcohol use: Not on file Drug use: Not on file PAST MEDICAL HISTORY Diagnosis Date Hercalio's disease Type 2 diabetes mellitus with hyperglycemia [...] which included preparing to see the patient, yrlh-wa-zmkp patient care, completing clinical documentation, obtaining and/or reviewing separately obtained history, performing a medically appropriate examination, counseling and educating the pat ient/family/caregiver and ordering medications, tests, or procedures. Anila Jimenez APRN.STORE RECEIVING CLERK [facility]ocrine and Metabolism [place] documented in this encounterUniversity [facility]als [facility]05-20-2022 NoteHNO ID: [id number] Author: Leena Seymour MD Service: ? Author [...] mcg (5,000 unit) cap - Vitamin D [place] (Simple-Fill) Take 1 capsule by mouth daily with food. - montelukast (SINGULAIR) 10 mg tablet Take 10 mg by mouth daily at bedtime. - MULTIVIT-MINERALS/FERROUS GLUC (CENTRAM-CARE ORAL) Take by mouth twice daily. - esomeprazole mag trihydrate(NEXIUM 40 MG CAP) Take one(1) capsule daily. - mometasone furoate(NASONEX 50 MCG/ACTUATION SPRAY) [place] twice in each nostril once daily. - [...] effexor. Will check routine labs. Leena Seymour [facility]05-20-2022 History of Present illness Narrative* Leena Seymour [...] 125 mcg (5,000 unit) cap Vitamin D [place] (Simple-Fill) Take 1 capsule by mouth daily with food. montelukast (SINGULAIR) 10 mg tablet Take 10 mg by mouth daily at bedtime. MULTIVIT-MINERALS/FERROUS GLUC (CENTRAM-CARE ORAL) Take by mouth twice daily. esomeprazole mag trihydrate(NEXIUM 40 MG CAP) Take one(1) capsule daily. mometasone furoate(NASONEX 50 MCG/ACTUATION SPRAY) [place] twice in each nostril once daily. cetirizine [...] labs. Leena Seymour MD documented in this encounterUniversity [facility]als [facility]05-16-2022 Miscellaneous Notes* Telephone Encounter - Renea Mcfarland Director Construction Services - 10/03/2021 3:02 PM EDT Patient called in asking for routine lab orders to be placed. Patient stated she will schedule her appointment soon. Done. Asad Ansari MD documented in this encounterUniversity Hospitals Beachwood [facility] Center03-04-2022 NoteHNO ID: [id number] Author: Asad Ansari MD Service: ? Author Type: Physician Type: Progress Notes Filed: 07/22/2021 10:43 AM Note Text: VIRTUAL VISIT PROGRESS NOTE This is a virtual visit using [employer] video platform. It required patient-provider interaction for [...] mcg (5,000 unit) cap - Vitamin D [place] (Simple-Fill) Take 1 capsule by mouth daily with food. - montelukast (SINGULAIR) 10 mg tablet Take 10 mg by mouth daily at bedtime. - MULTIVIT-MINERALS/FERROUS GLUC (CENTRAM-CARE ORAL) Take by mouth twice daily. - esomeprazole mag trihydrate(NEXIUM 40 MG CAP) Take one(1) capsule daily. - mometasone furoate(NASONEX 50 MCG/ACTUATION SPRAY) [place] twice in each nostril once daily. - [...] Date(s) Administered COVID-19 vaccine, age 12+ yr ([employer] - PURPLE TOP) 09/23/2020 Labs: HbA1c. TSH. [...] 2 months - virt (more content not included)...[facility]02-14-2022 Evaluation note* Encounter Date Diagnosis Assessment Notes Treatment Notes Treatment Clinical Notes Jun, Lumbar pain (ICD-10 - M54.50) Jun,Leg pain (ICD-10 - M79.606)bilateral 14 Jun, 2021Hyperlipidemia (ICD-10 - E78.5) [employer] Other 02-02-2022 Miscellaneous Notes* Telephone Encounter - Neema Gunderson Adm - 06/22/2021 9:09 AM EST Patient called in requesting the results of her labs that she had completed on 06/16/2021 Canelo can be reached at [phone] (C) or can be reached through [employer]. documented in this encounterUniversity Hospitals Beachwood Medical Center01-27-2022 NoteHNO ID: [id number] Author: Asad Ansari MD Service: ? Author Type: Physician Type: Progress Notes Filed: 06/16/2021 1:56 PM Note Text: Last Visit: This is the first visit. Ms. Pathak is here for follow up regarding her DM Type 2 and hypothyroidism. Current Immunizations: Most Recent Immunizations Administered Date(s) Administered COVID-19 vaccine, age 12+ yr ([employer] - PURPLE TOP) 09/23/2020 PHYSICAL EXAMINATION: BP [...] mouth daily before breakfast. - Vitamin D [place] (code-laboration for [employer]) Take 1 capsule by mouth daily with food. - montelukast (SINGULAIR) 10 mg tablet Take 10 mg by mouth daily at bedtime. - MULTIVIT-MINERALS/FERROUS GLUC (CENTRAM-CARE ORAL) Take by mouth twice daily. - esomeprazole mag trihydrate(NEXIUM 40 MG CAP) Take one(1) capsule daily. - mometasone furoate(NASONEX 50 MCG/ACTUATION SPRAY) [place] twice in each nostril once daily. - [...] Hair?: Yes Cold Intolerance: Yes Heat Intolerance?: Yes[facility]* Encounter Date Diagnosis Assessment Notes Treatment Notes Treatment Clinical Notes Apr, Diabetes (ICD-10 - E11.9) [employer] Other 10-27-2021 Evaluation note* Encounter Date Diagnosis Assessment Notes Treatment Notes Treatment Clinical Notes Feb, Hypothyroidism, unspecified (ICD -10 - E03.9) Feb,olyarthralgia (ICD-10 - M25.50) [employer] Other 10-26-2021 Evaluation note* Encounter Date Diagnosis [...] weeks to check her thyroid levels. Feb,Other chcf (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 (ICD-10 - Z79.899) Feb,elvic [...] says by 5-6 weeks it was gone. [employer] Other 10-07-2021 Evaluation note* Encounter Date Diagnosis Assessment Notes Treatment Notes Treatment Clinical Notes Feb, Bronchitis (ICD-10 - J40) [employer] Other 10-04-2021 Evaluation note* Encounter Date Diagnosis Assessment Notes Treatment Notes Treatment Clinical Notes Feb, Asthma (ICD-10 - J45.909) Feb,GERD (gastroesophageal reflux disease) (ICD-10 - K21.9) Feb,easonal allergies (ICD-10 - J30.2) [employer] Other 07-28-2012 History general Narrative - Reported* Type Description Date Medical History asthma Medical Thkcczi93/28/12 Right hand x-rayMedical Omxpulg81/28/12 Blood work Lipid, CMP, CBC, T4, TSH, HGA1C (6.3)Medical Iibzqln85/22/12-stress test at [facility] Medical HistoryHypothyroidismMedical Safbldv7192 mammogramMedical History12/21/15 EKGMedical History12/29/15 [facility] Historytonsillectomy and kzbeoukqblpae8120Tvuubvpq Historycholecystectomy08/2008Surgical Historygall bladder08/2008Surgical Historytubes in stoo8333/78Surgical Historylaproscopic fibroid xjpjmld3305/16/2010Surgical Zzntpvhcuehziullmlv--3041Sdbqrhfn Historymammogram [facility] - Dr Alvarez07/17/17urgical HistoryERCP 09/17/17Hospitalization Historygall bladder08/2008Hospitalization History tonsillectomyHospitalization Historytubes in earsHospitalization History heart(over night opservation)08/2007Hospitalization Udyofkhszaddreou2627 Hospitalization Historyabnormal liver function vwvp0183 [employer] Other 07-28-2012 History general Narrative - Reported* Type Description Date Medical History asthma Medical Yymvfsq83/28/12 Right hand x-rayMedical Tggdzyc31/22/12[facility] HistoryHypothyroidismMedical Wqlmqrk2245 mammogramMedical History 12/21/15 EKGMedical History12/29/15 [facility] Historytonsillectomy and uznlstkjwsmsu5730Bkyfhisy Historycholecystectomy08/2008Surgical Historygall bladder08/2008Surgical Historytubes in wrnp0025/78Surgical Historylaproscopic fibroid oayxfqw6405/16/2010Surgical Rjgpfvtmubouenmpyrh-nleih97-3373Yqixbwey Historymammogram [facility] - Dr Alvarez07/17/17urgical HistoryERCP 09/17/17Hospitalization Historygall bladder08/2008Hospitalization History tonsillectomyHospitalization Historytubes in earsHospitalization History heart(over night opservation)08/2007Hospitalization Zudutsikenmrfceg4886 Hospitalization Historyabnormal liver function awqi5262 [employer] [employer] Other 07-28-2012 History general Narrative - Reported* Type Description Date Medical History asthma Medical Njdxlit28/28/12 Right hand x-rayMedical Rjhiyix77/22/12[facility] HistoryHypothyroidismMedical Dfwtvxq6150 mammogramMedical History 12/21/15 EKGMedical History12/29/15 Stress Test [facility] Historyspinal stenosis Surgical Historytonsillectomy and jtoawqngzfdyr3804Dlqkgdbv History cholecystectomy08/2008Surgical Historygall bladder08/2008Surgical Historytubes in msnv0783/78Surgical Historylaproscopic fibroid unkjxso0705/16/2010Surgical History roexunelilde-wcnoe94-4439Yejgtvre Historymammogram [facility] - [facility] Alvarez07/17/urgical HistoryERCP4/Hospitalization Historygall bladder 08/2008Hospitalization HistorytonsillectomyHospitalization Historytubes in ears Hospitalization Historyheart(over night opservation)08/2007Hospitalization Jaekmzvqmyzenlqw1573Tpwocxnamachlqj Historyabnormal liver function xdbs6210 [employer] Other Evaluation note* Diagnosis Acquired hypothyroidism- Primary Unspecified hypothyroidism Controlled type 2 diabetes mellitus without complication, without long-term current use of insulin (HCC) documented [facility] [place] [facility]* Diagnosis Fibromyalgia- Primary Mylagia and myositis, unspecified [place] (generalized anxiety disorder) Generalized anxiety disorder documented in this encounter [facility] CenterEval[facility]em[facility] [place] [facility]* Diagnosis Type 2 diabetes mellitus with hyperglycemia, without long-term current use of insulin (HCC)- Primary Heraclio's disease Chronic lymphocytic thyroiditis documented in this encounter [facility] CenterEvalunemours [facility] [place] noteNo InformationSaint Cabrini Hospital [employer] [employer] Other Evaluation noteSaint Cabrini Hospital [facility] [employer] Other Evaluation note* Diagnosis Onset Date Resolution Status Anxiety acuteAsthmaacuteDiabetesacuteElevated blood pressure readingacuteFatigueacute GERD (gastroesophageal reflux disease)acuteHyperlipidemiaacuteHypothyroidism acuteOther chronic painacuteOther chcf (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acute PalpitationacuteVitamin D deficiencyacute [facility] Work Phone: Evaluation note* Diagnosis Onset Date Resolution Status Chronic pain acuteHip painacuteLumbar stenosisacuteSacroiliitisacuteChronic painacuteHip pain acuteLumbar radiculopathyacuteLumbar stenosisacuteSacroiliitisacuteChronic pain acuteLumbar radiculopathyacuteLumbosacral spondylosisacuteSacroiliitisacute [facility] Work Phone: Evaluation note* Diagnosis Onset Date Resolution Status Chronic pain acuteHip painacuteLumbar stenosisacuteSacroiliitisacuteChronic painacuteHip pain acuteLumbar radiculopathyacuteLumbar stenosisacuteSacroiliitisacuteChronic pain acuteLumbar radiculopathyacuteLumbosacral spondylosisacuteSacroiliitisacute Chronic painacuteLumbar radiculopathyacuteLumbosacral spondylosisacute Sacroiliitisacute [facility] Work Phone: Evaluation note* Diagnosis Onset Date Resolution Status Chronic pain acuteLumbar radiculopathyacuteLumbosacral spondylosisacuteSacroiliitisacute Chronic painacuteLumbar radiculopathyacuteLumbosacral spondylosisacute SacroiliitisacuteAsthmaacuteGERD (gastroesophageal reflux disease)acuteSeasonal allergiesacute [facility] Work Phone: History general Narrative - ReportedNort [employer] Other History general Narrative - Reported* Type Description Date Medical History asthma Medical HistoryHypothyroidismMedical Historyspinal stenosisMedical History diabetes mallitusMedical Historychronic depressionMedical HistoryanxietyMedical HistoryhyperlipidemiaMedical HistoryobesityMedical HistoryfibromyalgiaMedical Historyshoulder painSurgical Historytonsillectomy and ijsnadjftwwnu1582Qhkiqalq Historycholecystectomy08/2008Surgical Historygall bladder08/2008Surgical History tubes in ijnk0762/78Surgical Historylaproscopic fibroid hdhiovy9205/16/2010 Surgical Gqfzxgwahqtlscbmmqm-esjpr89-2292Qcgsaphs Historymammogram [facility] - Dr Alvarez07/17/urgical HistoryERCP4/Hospitalization Historygall bladder08/2008Hospitalization HistorytonsillectomyHospitalization Historytubes in earsHospitalization Historyheart(over night opservation)08/2007 Hospitalization Mpufpudgelpkgmtu2417Sexxttdfmwwirpk Historyabnormal liver function eyht6874 [place] [employer] Other History general Narrative - Reported* Type Description Date Medical History asthma Medical HistoryHypothyroidismMedical Historyspinal stenosisMedical History diabetes mallitusMedical Historychronic depressionMedical HistoryanxietyMedical HistoryhyperlipidemiaMedical HistoryobesityMedical HistoryfibromyalgiaMedical Historyshoulder painMedical Historyseasonal allergiesMedical HistoryEsophageal refluxSurgical Historytonsillectomy and rjwxulrzfsmjw4554Exukftzg History cholecystectomy08/2008Surgical Historygall bladder08/2008Surgical Historytubes in ygjs0383/78Surgical Historylaproscopic fibroid xrwbsgq9505/16/2010Surgical History rwkyufmgkime-hehyx31-6169Mfbekuip Historymammogram [facility] - Dr Alvarez07/17/17urgical HistoryERCP4/Hospitalization Historygall bladder 08/2008Hospitalization HistorytonsillectomyHospitalization Historytubes in ears Hospitalization Historyheart(over night opservation)08/2007Hospitalization Phpqmzziptpijius9679Gaznffurssujfjp Historyabnormal liver function opgr5947 [facility] [employer] Other Hospital course Narrative No data available for this section [facility] No data available for this section [facility] Discharge instructionsAmbulatory Orders* Referral to Orthopedics Time Frame: 06/26/24, Location: None [facility] Work Phone: Progress note No data available for this section [facility] HospitalReason for referral (narrative)No reason for referral information availableC[facility] Clinic [facility] Work Phone: Reason for visit Narrativereview labs, discuss multiple issues, see treatment plan for further informationNoLif[facility] [employer] Other Reason for visit Narrativereview labs, discuss multiple issues, see treatment planNoLifecare [facility] [employer] [employer] Other Summary Purpose Family History Relationship Condition [...] Referral SpecialtyDiagnoses / ProceduresReferred By ContactReferred To [facility] Diagnoses Fibromyalgia Procedures CONSULT TO [facility] ([facility]) OFFICE/OUTPATIENT [facility] 60-74 MINUTES Leena Seymour MD [address] [place] [address] Referral IDStatusReasonStart DateExpiration DateVisits RequestedVisits [id number] Review PCP Requested Referral / Reason appt pt needs cons ult to discuss weight loss, diabetes Diagnosis 1 Diabetes (E11.9) Referral Organization [facility] Referring Provider First Name Jeff Referring Provider Last Name Dontrell Referring Provider Specialty Family Prac debbi Referred Organization [facility] Referred Provider Carl Valdivia Jr. Referred Address [address],[place], [place],[address] Referred Provider Specialty Internal Med icine Referral Priority Routine General Notes TalbertViktoria zunigaorah 03/15/2021 01:33:19 PM > [facility] form faxed. pt understands she will be contacted to schedule the appt Reason appt pt needs scre ening colonoscopy Diagnosis 1 Colon cancer screeni ng (Z12.11) Referral Organization [facility] [place] Referring Provider First Name Jeff Referring Provider Last Name Dontrell Referring Provider Specialty Family Prac debbi Referred Organization [facility] Gastroenterolo gy Referred Provider Howard Kunz Referred Address [address] ,[place], [place],[address] Referred Provider Specialty Gastroentero logy Referral Priority Routine General Notes Svetlana Talbert 04/11/2022 01:25:30 PM > referral sent p2p. pt understands she will be contacted to schedule this appt. 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 [place] Vitamin D deficiency Chief Complaint review labs BP/discuss meds/ENTReason for VisitAnxiety Asthma Diabetes Elevated blood pressure reading Fatigue GERD (gastroesophageal reflux disease) Hyperlipidemia Hypothyroidism Other chronic pain 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 Palp[place] Vitamin D deficiency Asymmetrical sensorineural hearing loss Chronic pain Elevated blood pressure reading Tinnitus Chief Complaint review labs BP/discuss meds/ENT review thyroid labsReason for VisitAnxiety Asthma Diabetes Elevated blood pressure reading Fatigue GERD (gastroesophageal reflux disease) Hyperlipidemia Hypothyroidism Other chronic pain Other chcf (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 Palp[place] Vitamin D deficiency [...] 2024 10:24am GERD (gastroesophageal reflux disease) [facility] 20[facility] 10:24am Nausea July 16, 2024 10:24am [...] 2024 10:24am GERD (gastroesophageal reflux disease) [facility] 2024 10:24am Nausea July 16, 2024 10:24am [...] section and content) DATE CREATED AUTHOR 10/10/2018 [facility] DATE CREATED AUTHOR AUTHOR'S ORGANIZ ATION 05/13/2022 [facility] DATE CREATED AUTHOR AUTHOR'S ORGANIZ ATION 09/15/2022 [facility] DATE CREATED AUTHOR AUTHOR'S ORGANIZ ATION 12/19/2022 [facility] DATE CREATED AUTHOR AUTHOR'S ORGANIZ ATION 10/14/2023 [facility] DATE CREATED AUTHOR AUTHOR'S ORGANIZ ATION 10/24/2023 [facility] DATE CREATED AUTHOR AUTHOR'S ORGANIZ ATION 01/31/2024 [facility] DATE CREATED AUTHOR AUTHOR'S ORGANIZ ATION 11/30/2024 [facility] DATE CREATED AUTHOR AUTHOR'S ORGANIZ ATION 02/11/2025 [facility] Source Comments (unrecognize d section and content) In the event this informatio n is protected by the Federal Confidentiality of Alcohol and Drug Abuse Patient Records regulations: The Federal rules restrict any use of the information to criminally investigate or prosecute any alcohol or drug abuse patient.[facility] Medical CenterIn the event this information is protected by the Federal Confidentiality of Alcohol and Drug Abuse Patient Records regulations: The Federal rules restrict any use of the information to criminally investigate or prosecute any alcohol or drug abuse patient.[facility] CenterIn the event this information is protected by the Federal Confidentiality of Alcohol and Drug Abuse Patient Records regulations: The Federal rules restrict any use of the information to criminally investigate or prosecute any alcohol or drug abuse patient.[facility] CenterIn the event this information is protected by the Federal Confidentiality of Alcohol and Drug Abuse Patient Records regulations: The Federal rules restrict any use of the information to criminally investigate or prosecute any alcohol or drug abuse patient.[facility] CenterIn the event this information is protected by the Federal Confidentiality of Alcohol and Drug Abuse Patient Records regulations: The Federal rules restrict any use of the information to criminally investigate or prosecute any alcohol or drug abuse patient.[facility] Reason for Visit (unrecogniz ed section and [...] Active S tart: January 06, 2025 Neo Esipno MDAttryan ProviderActiveStart: January 06, 2025 Team Status: Active Member Role Status Zach Jon DO Primary Care Provider Active S tart: January 27, 2025 Neo Espino MDAttryan ProviderActiveStart: January 27, 2025 Team Status: Inactive Member Role Status Zach Jon DO Primary Care Provider Active S tart: February 24, 2025 End: February 24, 2025Dakorin Jno DOAttryan ProviderActiveStart: February 24, 2025 End: February [...] 08, 2024 End: September 08, 2024Hefredo Rico PASSEMENTERIE WORKER ACNP-BCAttending ProviderActiveStart: September 08, 2024 End: September [...] Jeff Jon, DO [address] [place] [address] PCP - [facility]08/01/18Team MemberRelationshipSpecialtyStart DateEnd Date Jeff Jon, DO [address] [place] [address] PCP - [facility]08/01/18Team MemberRelationshipSpecialtyStart DateEnd Date Jeff Jon, DO [address] [place] [address] PCP - [facility]08/01/18Team MemberRelationshipSpecialtyStart DateEnd Date Jeff Jon, DO [address] [place] [address] PCP - [facility]08/01/18Team MemberRelationshipSpecialtyStart DateEnd Date Jeff Jon, DO [address] [place] [address] PCP - [facility]08/01/18 Team Status: Active Member Role Status Zach [...] 2025Team MemberRelationshipSpecialtyStart DateEnd Date Jeff Jon MD [address] [place] [id number] PCP - GeneralFamily Medicine10/18/22 Goals (unrecognized section [...] BE BASED ON THE PRIMARY CLINICAL RECORDS. [facility] HospitalMicrobix Biosystems [facility]. provides no warranty or guarantee of the accuracy or completeness of information in this document.
[2025-03-24] MEDS: ENOXAPARIN SODIUM 40 MG/0.4 ML SYRINGE SUBQ (21:45)
[2025-03-24 22:28] LABS: SARS-CoV-2 Ag NEGATIVE (NEGATIVE)
[2025-03-25] VITALS (10 sets, daily range): BP systolic 129–171; BP diastolic 77–98; PULSE 78–103; TEMP 36.3–36.8; O2SAT 91–96
[2025-03-25 05:33] LABS: Hematocrit 43.7 % (36.0-48.0); Hemoglobin 14.7 g/dL (12.0-16.0); Immature Granulocytes Abs Auto 0.04 10^3/uL (0.00-0.03); Immature Granulocytes Pct Auto 0.4 % (0.0-0.5); Lymphocytes Absolute Auto 0.7 10^3/uL (1.2-3.8); Mean Corpuscular HGB Conc 33.6 g/dL (29.9-35.2); Mean Corpuscular Hemoglobin 30.7 pg (26.7-34.0); Mean Corpuscular Volume 91.2 fL (81.0-99.0); Platelet Count 353 10^3/uL (150-450); Red Blood Count 4.79 10^6/uL (4.20-5.40); White Blood Count 9.4 10^3/uL (4.0-11.0)
[2025-03-25 05:53] LABS: Anion Gap 12.5; Blood Urea Nitrogen 22.0 mg/dL (7.0-18.0); Calcium 9.8 mg/dL (8.5-10.1); Carbon Dioxide 26.0 mmol/L (21.0-32.0); Chloride 103 mmol/L (98-107); Estimated GFR (African America >60 (>=60 mL/min/1.73m^2); Estimated GFR (Non-African Ame >60 (>=60 mL/min/1.73m^2); Glucose 369 mg/dL (74-106); Magnesium 2.4 mg/dL (1.8-2.4); Potassium 4.5 mmol/L (3.5-5.1); Sodium 137 mmol/L (136-145)
--- NOTE | 2025-03-25 07:30 | CM.NOTE ---
Rounds made with Dr. Hopkins, discussed reason for admission and plan of care. Pt is inpatient status. Pt does follow with Pulmonology (Juma). Pt has appt scheduled for next week. Pt at this time is requiring oxygen.
[2025-03-25] MEDS: INSULIN ASPART 300 UNIT/3 ML PEN SUBQ ×4 (08:15→17:04)
--- OUTSIDE RECORDS SUMMARY | 2025-03-25 08:15 | XMS_ITS | Clinical Summary ---
Author Organization Navin Fernandez [facility] Address [address], [address] [place] [address] Care Team Providers Care Associate Drafter Name Role Phone Joe Barksdale DO Primary Care Provider Unavail able Social History Tobacco UseTypesPacks/DayYears UsedDateSmoking Tobacco: Never Assessed CommentsUnknownSex and Gender InformationValueDate RecordedSex Assigned at Not on fileLegal AbtDraumg78/29/2019 4:54 PM EDTGender IdentityNot on fileSexual OrientationNot on file Plan of Treatment Not on file Insurance Care Teams Team MemberRelationshipSpecialtyStart DateEnd Date Joe Barksdale DO PCP - Generalmi Medicine09/17/18
--- OUTSIDE RECORDS SUMMARY | 2025-03-25 08:15 | XMS_ITS | Clinical Summary ---
Author Organization [facility] Address [address] [place] [address] Phone Care Team Providers Care Event Organizer Name Role Phone Joe Barksdale DO Primary Care Provider [phone] Social History Tobacco UseTypesPacks/DayYears UsedDateSmoking Tobacco: Never Assessed CommentsUnknownSex and Gender InformationValueDate RecordedSex Assigned at Not on fileLegal IelBqrgan92/25/2022 1:13 PM ESTGender IdentityNot on fileSexual OrientationNot on file Plan of Treatment Health MaintenanceDue DateLast DoneCommentsCT Slvjctopfbzu27/23/1968Colonoscopy 1967Colorectal Cancer Gwobwtgmv67/23/1968FIT-DNA (Cologuard)1967FIT 1967HIV Irkyccakw06/23/1968Lipid Panel09/11/19673119Yiiqaywzgddyz87/23/1968 Yearly Adult Kpxxkpot69/23/1968MMR Vaccines (1 of 1 - Standard series)09/10/1968 Hepatitis C Oxnfbjozm05/23/1986Hepatitis B Vaccines (1 of 3 - 19+ 3-dose series) 09/10/1986Cervical Cancer Cwcmgnqen58/23/1989HPV/Ovwyac6109/10/1988Pap Smear 09/10/1988DTaP/Tdap/Td Vaccines (1 - Tdap)09/10/19898782Pqziksqjd68/23/2008 Pneumococcal Vaccine (1 of 1 - PCV)09/10/2017Zoster [...] Team MemberRelationshipSpecialtyStart DateEnd Date Joe Barksdale DO [facility]09/27/22
--- OUTSIDE RECORDS SUMMARY | 2025-03-25 08:16 | XMS_ITS | Clinical Summary ---
Author Organization [facility] Address [address] [place] [address] Care Team Providers Care Chicken Buyer Name Role Phone Joe Barksdale Primary Care Provider [phone] Allergies Active AllergyReactionsCriticalityNoted DateCommentsGatifloxacinItching 05/16/2007 Other Reaction(s): [...] 309/509/6Active Active Problems ProblemNoted DateDiagnosed DateShortness of dtygou2701/05/2025Other chest pain 01/05/2025ardiovascular stress test grkhzdke22/18/2025id uiprng9210/11/2023 Bfkbrfg0110/11/20231696Aisygl79/23/2024Elevated blood pressure mqpdxdu1510/11/2023 Uuspccwcy43/23/4043Gjljmokxzlzpbn23/23/6861Lwmhaoqhrpjb12/23/2024Hypothyroidism 10/11/20236229Allxxpwemuowre16/23/2024Other shelter (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 10/11/20231257Jfmcrmqcukp33/23/5696Ohdzunmxmrfrfj12/23/2024Seasonal allergies 10/11/2023UTI (urinary tract infection)10/11/2023Vitamin D xapgphbtrq92/23/2024 Jtlorbex25/06/2024symmetric SNHL (sensorineural hearing loss)09/24/2023ight- sided ydyojvit30/06/2024holesteatoma of attic of ear, right08/21/2023ulsatile tinnitus of right ear08/21/2023bnormal taste in mouth10/04/2022llergic rhinitis due to animal hair and gtayym8310/04/2022astroesophageal reflux disease with dmcgnbsyjht08/17/2023Type 2 diabetes mellitus with hyperglycemia, without long-term current use of prmxzju9410/11/2021inge eating nplufmvc11/02/2016BMI 50.0-59.9, adult09/20/2015CFS (chronic fatigue syndrome)09/20/2015Fibromyalgia 09/20/2015Hashimoto's lhgiujn6609/20/2015Metabolic lenxxpce25/02/2016 Encounters DateTypeDepartmentCare HoilIgphtzjpday48/29/2025Telephone [facility] [address] [place] [address] Yulia Huffman MA 02/09/2025 2:00 PM EDTFollow-Up [facility] [address] [place] [address] Ambrose Espino MD Chronic diastolic congestive heart failure (CMS/HCC) (Primary Dx); Primary hypertension; Mixed dikdaozsvqhauw31/15/2025Telephone [facility] [address] [place] [address] Yulia Huffman MA 01/12/2025Telephone [facility] [address] [place] [address] Besty Peters MA 01/08/2025 8:30 AM EDT - 01/08/2025 9:30 AM EDTSurgery [facility] [address] [place] [address] Won Blanton MD Coronary ibwsphnhdxg98/21/2025 7:06 AM EDT - 01/08/2025 11:33 AM EDTHospital Encounter [facility] [address] [place] [address] Won Blanton MD Shortness of breath; Other chest pain; Cardiovascular stress test abnormal Discharge Disposition: Home or Self Care ()01/08/2025Orders Only [facility] [address] [place] [address] Renee Vaughn RN Hypertension (Primary Dx)01/08/20259908Jrimhg61/18/2025 10:30 AM EDTOffice Visit [facility] [address] [place] [address] Ambrose Espino MD Cardiovascular stress test abnormal (Primary Dx); Other chest pain; Shortness of breath; Primary hypertension; Mixed hyperlipidemia; Adlpitcwzyfq36/18/2749Ccqjnv80/18/2025Orders Only [facility] [address] [place] [address] Rosario Ac MD 12/29/2024Orders Only [facility] [address] [place] [address] Provider, MD Rosario from Last 3 Months Family History Medical HistoryRelationNameCommentsHeart attackFatherKidney diseaseFather Pulmonary embolismMotherRelationNameStatusCommentsBrotherAliveFatherDeceased MotherDeceased Social History Tobacco UseTypesPacks/DayYears UsedDateSmoking Tobacco: NeverSmokeless Tobacco: Never Tobacco Cessation:Counseling Given: Not Answered Alcohol UseStandard Drinks/WeekCommentsYes0 (1 standard drink = 0.6 oz pure alcohol)occasionalCommentsNoSex and Gender InformationValueDate Recorded Sex Assigned at YmwjvJqnkub02/13/2025 2:06 PM EDTLegal ImsUkwsfw69/19/2025 8:53 AM EDTGender YcthaouxEatlsc03/13/2025 2:06 PM EDTSexual OrientationHeterosexual or Kimzbgzt99/13/2025 2:06 PM EDT Last Filed Vital Signs Vital SignReadingTime TakenCommentsBlood Ixzehkvs500/8609 2:23 PM EDT Quoer8172 2:23 PM EDTTemperature--Respiratory Kghe3388 11:08 AM EDTOxygen Ycnhcjvqsh09%02/09/2025 2:23 PM EDTInhaled Oxygen Concentration-- Qrdldz931 kg (271 lb)02/09/2025 2:23 PM ZLCXjbfww329.1 cm (5' 5 )02/09/2025 2:23 PM EDTBody Mass Index45. 2:23 PM EDT Plan of Treatment Health MaintenanceDue DateLast DoneCommentsCT Vrvhnksduwvb96/23/1968Colonoscopy 1967Colorectal Cancer Nwnwmsjos64/23/1968Diabetes: Hemoglobin A1C 1967FIT-DNA1967FIT1967FOBT09/11/19674215Plqerbskjyeho45/23/1968 Diabetes: Retinopathy Djsmhedga41/23/1978Depression Gmimmmvxh63/23/1980Diabetes: Urine Protein Qyedlropk06/23/1987Hepatitis B Vaccines (1 of 3 - 19+ 3-dose series)09/10/1986Pneumococcal Vaccine: Pediatrics (0 to 5 Years) and At-Risk Patients (6 to 64 Years) (1 of 2 - PCV)09/10/1986Pap Smear09/10/1988Cervical Cancer Dgpfeompa35/23/1998HPV/Qgawda6609/10/19973799Nfextsmez07/23/2008Zoster Vaccines (1 of 2)09/10/2017COVID-19 Vaccine (3 - season)505/10/2020, 09/02/2020Influenza Vaccine (#1)2025dult Dfkixew67/25/802671/, 12/16/2011HIB VaccinesAged OutNo longer eligible based on [...] topic Procedures Procedure NamePriorityDate/TimeAssociated DiagnosisCommentsRIGHT HEART CATH Fdjvpwa5101/08/2025 9:05 AM EDT Shortness of breath Other chest pain Cardiovascular stress test abnormal CORONARY FONVIIIWVECNzlmtmr29/21/2025 9:05 AM EDT Shortness of breath Other chest pain Cardiovascular stress test abnormal POCT HBO2%Ixqsuki8701/08/2025 8:39 AM EDT ECG 12-SQBGBdfvrwm69/21/2025 8:13 AM EDT COMPLETE TRANSTHORACIC ECHO (TTE) W/WO IMAGING AGENT, STRAIN, 3D, BUBBLE STUDY Arvkqgv5912/29/2024 8:06 AM EDTfrom Last 3 Months Results * [...] follow-up with Dr. Ambrose Espino her primary abnormal psychology teacher in the next 1 to 2 months [...] internal jugular vein was obtained. ??A 6 English 11 cm sheath was inserted without difficulty. [...] left radial artery was obtained. ??A 6 English glide sheath was inserted without difficulty. Bilateral [...] been documented. Authorizing ProviderResult TypeResult StatusGeorge Kenzie [facility] [place] [place] CARDIAC CATH PROCEDURESFinal Result * (ABNORMAL) POC Hb02% (01/08/2025 8:39 AM EDT)ComponentValueRef RangeTest MethodAnalysis TimePerformed AtPathologist EqqoeyaioXQOHYH26%74.2(A)90 - 95 % QC Pass/FailPassedQC LOT #[id number] Expiration Date73,126SAMPLESITEnlSpecimen (Source)Anatomical Location / LateralityCollection Method / VolumeCollection TimeReceived TimeBloodVenous blood specimen / Sknnfvs7501/08/2025 8:39 AM EDT Narrative Chance Jenkins MT - 01/09/2025 5:53 AM EDT Oper [id number] Authorizing ProviderResult TypeResult StatusEhab El[facility]at[facility] MDPOINT OF CARE TEST ENTER/EDIT ORDERABLESFinal Result * Electrocardiogram, 12-lead (01/08/2025 8:13 AM EDT)ComponentValueRef RangeTest MethodAnalysis TimePerformed AtPathologist SignatureVentricular Roqq83IVFHY MUSEAtrial Cnfd10YTOHX MUSEPR Hgywkbxn290koIO MUSEQRS EKGDHIXL41uqKX MUSEQT Stctjkyy229ywOE MUSEQTC CALCULATION(BAZETT)445msGE MUSEP Gaij48brjbwgbCY MUSE R-Fiyr85xkwbptpLR MUSET Wave Xqnx39wxocmutRL MUSESpecimen (Source)Anatomical Location / LateralityCollection Method / [...] 10:03:48 AM Authorizing ProviderResult TypeResult StatusEhab Harvinder YAECG ORDERABLESFinal ResultPerforming OrganizationAddressCity/State/ZIP CodePhone Number GE MUSE * Complete Echo (TTE) w/wo Imaging Agent, Strain, 3D, Bubble Study (12/29/2024 8:06 AM EDT)Anatomical RegionLateralityModalityUltrasound Narrative Authorizing ProviderResult TypeResult StatusHistorical Provider [facility] [place] [place] ECHO PROCEDURESFinal Result from Last 3 Months Insurance * Guarantor: Laura Singh LAccount TypeRelation to PatientDate of BirthPhone Billing AddressPersonal/YonxuyFtae13/23/1966 [facility] [place] [address] Care Teams Team MemberRelationshipSpecialtyStart DateEnd Date Joe Barksdale DO [address] [address] [facility]
--- OUTSIDE RECORDS SUMMARY | 2025-03-25 08:16 | XMS_ITS | Clinical Summary ---
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 Name Role Phone Joe Barksdale Lilli BETH Primary Care Provider [phone] Allergies Active AllergyReactionsCriticalityNoted DateCommentsClarithromycinItching 05/16/2007 nerve difficulty Cefuroxime IwpngnCgaymgb51/27/2007 nerve difficulty JvidyglxpsnNpgpwxh43/27/1383ZmfpivalxvgqEfeqnms10/27/2007 nerve difficulty LorazepamOther: See Nkojyirh58/27/2022MetforminOther: See Gqeepruk38/27/2022 CxcrknmadnefRvmyodb57/27/2007 nerve difficulty Medications MedicationSigDispense QuantityRefillsLast FilledStart DateEnd DateStatus cetirizine hcl(ZYRTEC 10 MG TAB) Indications:Myalgia and myositis, unspecifiedTake one(1) tablet daily.0 05/16/2007ctive fluticasone/salmeterol(ADVAIR DISKUS 250 MCG-50 MCG/DOSE FOR INHALATION) Indications:Myalgia and myositis, unspecifiedTake one(1) inhalation twice daily; rinse and gargle mouth with water after each use.ctive esomeprazole mag trihydrate(NEXIUM 40 MG CAP) Take one(1) capsule daily.ctive mometasone furoate(NASONEX 50 MCG/ACTUATION SPRAY) [place] twice in each nostril once daily.ctive montelukast [...] with hyperglycemia, without long-term current use of rcbzwuo4310/11/2021ensorineural hearing loss, ycmipkfbv87/29/2019CFS (chronic fatigue syndrome)09/20/2015Fibromyalgia 09/20/2015BMI 50.0-59.9, adult09/20/2015Binge eating kuqrjifr81/02/2016 Yulisa's noumxnq3209/20/2015Metabolic ekbbvfoy71/02/2016 Family History Medical HistoryRelationCommentsHypertensionBrotherMIBrotherDiabetesFather Ischemic Heart DiseaseFatherKidney failureFatherStrokeFatherPulmonary embolism Motherpituitary tumorMotherRelationStatusCommentsBrotherAliveFatherDeceased MotherDeceased Social History Tobacco UseTypesPacks/DayYears UsedDateSmoking Tobacco: NeverSmokeless Tobacco: NeverAlcohol UseStandard Drinks/WeekCommentsNot Currently0 (1 standard drink = 0.6 oz pure alcohol)rarelyPHQ-2AnswerDate RecordedPHQ-2 cauru827rea Deprivation IndexAnswerDate RecordedNational Score (1-100), lower number is lower cniu510306/07/2022State Score (1-10), lower number is lower riskNot on file 3Data from: https://www.neighborhoodatlas.medicine.[facility].edu/. Last address used for wvrtdmoxcef[address]06/07/2022CommentsNoSex and Gender InformationValueDate RecordedSex Assigned at PlgwcSgfdyy83/25/2022 10:20 PM ESTLegal KdqBsbght09/02/2012 8:11 AM ESTGender ReqxewozNncdsg25/25/2022 10:20 PM ESTSexual OrientationNot on file Last Filed Vital Signs Vital SignReadingTime TakenCommentsBlood Otzvnlvb164/9310/07/2021 1:46 PM EDT Acsso203110/07/2021 1:46 PM WDHTokysfutoxe58.1 ??C (98.7 ??F)06/26/2008 12:30 PM ESTRespiratory Rate--Oxygen Saturation--Inhaled Oxygen Concentration--Weight 125.8 kg (277 lb 6.4 oz)10/07/2021 1:46 PM DLDNgjebv614.1 cm (5' 5 )03/30/2016 3:51 PM ESTBody Mass Index46.16105/30/2015 3:51 PM EST Plan of Treatment Health MaintenanceDue DateLast DoneCommentsAnxiety Bqbwgfnir47/23/1986Depression Jkbtsqfpg99/23/1986HIV Fvqentowc76/23/1986Hepatitis B Vaccine (1 of 3 - 19+ 3- dose series)09/10/1986Cervical Cancer Dlisdfvtx50/23/1989Mammogram Screening 2007CT Srhhfisvjbdx82/23/2013Cologuard (FIT-DNA)09/10/2012Colonoscopy 09/10/2012Colorectal Cancer Yonnrpkdt98/23/2013Fecal Occult Blood09/10/2012Lipid Oofohgotj39/23/7158Btyksfiddaorh26/23/2013Pneumococcal Vaccine: 50+ (1 of 1 - PCV)09/10/2017Shingrix Vaccine (1 of 2)09/10/2017DTaP,Tdap,Td Vaccine (2 - Td or Tdap)/Diabetes Wmermqxtx80/, 10/07/2021, 06/16/2021, Additional history existsCovid-19 Vaccine (3 - 2024- season) /10/2020, 09/02/2020Influenza Vaccine (#1) Hepatitis C FaqwtiefzTmrxqarjn93/27/2007 Procedures Procedure NamePriorityDate/TimeAssociated DiagnosisCommentsCOMPREHENSIVE METABOLIC WCUWZFiniome29/20/2022 2:42 PM EDT Controlled type 2 diabetes mellitus without complication, without long-term current use of insulin (HCC) HEP REMOTE PANEL VOLnswycz50/27/2007 2:25 PM EST Myalgia And Myositis Nos from Last 3 Months or Most Recently Relevant to Health Maintenance Results * (ABNORMAL) COMP METABOLIC PANEL (10/07/2021 2:42 PM EDT)ComponentValueRef RangeTest MethodAnalysis TimePerformed AtPathologist SignatureProtein, Total 7.36.3 - 8.0 g/dL10/07/2021 8:04 PM [facility] LABAlbumin 4.83.9 - 4.9 g/dL10/07/2021 8:04 PM [facility] Calcium, Total10.3(H)8.5 - 10.2 mg/dL10/07/2021 8:04 PM [facility] LABBilirubin, Total0.50.2 - 1.3 mg/dL10/07/2021 8:04 PM EDT [facility] LABAlkaline Jpvojnsmiep3930 - 123 U/L10/07/2021 8:04 PM [facility] YIMJZL6619 - 35 U/L10/07/2021 8:04 PM [facility] PYUVSL962 - 38 U/L10/07/2021 8:04 PM EDT [facility] BEJOsjhiui991(H)74 - 99 mg/dL10/07/2021 8:04 PM [facility] LABComment: The [place] Diabetes Association (ADA) provides guidance for cutoff [...] Standards of Medical Care in Diabetes 2016, [place] Diabetes Association. Diabetes Care. 2016.39(Suppl 1). UQQ508 - 21 mg/dL10/07/2021 8:04 PM [facility] Creatinine0.700.58 - 0.96 mg/dL10/07/2021 8:04 PM [facility] FDZVtkssv759824 - 144 mmol/L10/07/2021 8:04 PM [facility] LABPotassium4.13.7 - 5.1 mmol/L10/07/2021 8:04 PM [facility] SSZWelysiyb91262 - 105 mmol/L10/07/2021 8:04 PM [facility] KZIKZ70070 - 30 mmol/L10/07/2021 8:04 PM [facility] LABAnion Dkj001 - 18 mmol/L10/07/2021 8:04 PM [facility] LABEstimated Glomerular Filtration Nmqv785>=60 mL/min/1.73m 10/07/2021 8:04 PM [facility] LABComment:Estimated Glomerular Filtration Rate (eGFR) is [...] VolumeCollection TimeReceived TimeBloodBLOOD SPECIMEN / UnknownVenipuncture / Pbgkmpg9310/07/2021 2:42 PM EDT10/07/2021 2:42 PM EDT Narrative Authorizing ProviderResult TypeResult StatusNeto Ansari MDLABORATORYFinal ResultPerforming OrganizationAddressCity/State/ZIP CodePhone Number [facility] [address] [address], * HEP REMOTE PANEL BL (05/16/2007 2:25 PM EST)ComponentValueRef RangeTest Method Analysis TimePerformed AtPathologist SignatureHep B Core Ab, TotalNegative NEGATCLEVELAND [facility]INIC MAIN LABORATORYHep C Antibody IANegativeNEGATCLEVELAND CLINIC MAIN LABORATORYHBsAgNegativeNEGATCLEVELAND [facility] MAIN LABORATORYHep B Surface Ab, QualNegativeNEGATCLEVELAND CLINIC [...] Shar Seymour MDLABORATORYFinal ResultPerforming OrganizationAddressCity/State/ZIP CodePhone Number [facility] [address] [place] [address] from Last 3 Months or Most Recently Relevant to Health Maintenance Insurance Care Teams Team MemberRelationshipSpecialtyStart DateEnd Date Joe Barksdale DO [address] [place] [id number] [facility]08/01/18
--- OUTSIDE RECORDS SUMMARY | 2025-03-25 08:16 | XMS_ITS | CCD ---
Author Organization [facility] Care Team Providers Care Lead Press Operator Name Role Phone JEFF JON Primary [...] Attending Unavaila Jeff Lopez Primary Care Physician [phone] DO Casper Nguyen Admitting Unavailabl e Casper [...] Unavailable DO Jeff Jon Primary Care Provider [phone] MD Logan Brown Attending Provider Jeff Jon DO Primary Care Unavailab le DeVaul B[employer] WEIGHER[employer]MANAGER COMPLETIONS, Cass Zavaleta Attending Unav ailable Jeff Jon DO Primary Care Unavailab le DeVaul B[employer] WEIGHER[employer]MANAGER COMPLETIONS, Cass Zavaleta Attending Unav ailable Jeff Jon DO Primary Care Unavailab le DeVaul [employer] WEIGHER[employer]MANAGER COMPLETIONS, Cass Zavaleta Attending Unav ailable Jeff Jon DO Primary Care Unavailab sanjeev George MD, Librado Kumar Attending Unavaila ble Jeff Jon DO Primary Care Provider Ly DO, Carol Rogers Attending Provider [phone] Jeff Jon DO Primary Care Provider Jeff [...] Jeff Jon DO Primary Care Provider Jeff oJn DO Attending Provider [phone] Jacky BULLION WEIGHERLorena Lea Attending Provider [place] Admitting Unavailable [...] TypeDate of OnsetReaction(s) FacilityMacrolides (antibiotic) (1 source)ClarithromycinDrug Muztiwi60-93-0569kwedrrpmUadreikuh Regional Medical CenterQuinolones (antibiotic) (2 sources)levoFLOXacinDrug Iroipdw40-11-9247Xholonvmb Pain, itches/pain, Ab[facility] PainP[facility] (6 sources)Cefuroxime; Translations: [CEFUROXIME AXETIL]Drug Knltufb67-08-7858 [facility]Cl[facility] (20 sources)Clarithromycin; Translations: [CLARITHROMYCIN]Drug Lqxnmei41-33-5650 [facility]Cl[facility] (15 sources)Fluconazole; Translations: [FLUCONAZOLE]Drug Nvtaojk64-24-5071 [facility] (20 sources)gatifloxacin; Translations: [GATIFLOXACIN]Drug Ygzxksg19-62-0255 [facility]chingCl[facility] (20 sources)levoFLOXacin; Translations: [LEVOFLOXACIN]Drug Etvltxi95-97-3650 [facility] (17 sources)LORazepam; Translations: [LORAZEPAM]Drug Pisggyh76-91-5934Txqbq: See CommentsClinton Memorial Hospital (20 sources)metFORMIN; Translations: [METFORMIN]Drug Rkkhmvq62-04-2134Jgshh: See [facility] (20 sources)FluconazoleDrug AllergyitchingL[facility] PREVENTIVE MEDICINE Other (20 sources)gatifloxacin; Translations: [Tequin]Drug Zewddbn47-60-1630QnqcbboUbk [facility] (20 sources)levoFLOXacin; Translations: [Levaquin]Drug Xndjili54-98-2982 itches/[facility]Mer[facility] (20 sources)LORazepamDrug Allergymade wired /unable to [facility] US PREVENTIVE MEDICINE Other (3 sources)metFORMINDrug AllergyheadChillicothe [facility] US PREVENTIVE MEDICINE Other (2 sources)Clarithromycin; Translations: [Biaxin]Drug Rkqswar53-77-8244Crd [facility] Repository (1 source)PentamidineDrug AllergyMercy Health – [facility] Rep[facility] (2 sources)Percocet Tablets; Translations: [Percocet Tablets]Propensity to adverse reactions to drugnausea and vomitingAdena [facility] (2 sources)Vicodin Tablets; Translations: [Vicodin Tablets]Propensity to adverse reactions to drugnausea and vomitingAdena Regional Medical Center (1 source)ClarithromycinDrug Vflihia95-05-0452WrmpbuvdkPike Community Hospital Rep[facility] (1 source)gatifloxacinDrug Lpftdbr20-68-4975TwgdpsujwPike Community Hospital Repository (1 source)levoFLOXacinDrug Gjtlqcg20-50-1748YzfdkbptxPike Community Hospital Repository (3 sources)Cefuroxime; Translations: [CEFUROXIME]Drug Yeuxqkn15-99-4900Ieoyhkd [facility] Repository (2 sources)ClarithromycinAllergy to uflfpvtqs51-56-7476Ulaidcdu, ItchingNOMS Healthcare (2 sources)GatifloxacinAllergy to xtbzcnhbe16-88-1822MA intolerance, ItchingNOMS Healthcare (2 sources)LorazepamAllergy to agxjvghii33-83-7743ThmsluaVOFT Healthcare Medications Current Medications MedicationDrug Class(es)DatesSig (Normalized)Sig [...] inhalation solution (20 sources)beta2-Adrenergic AgonistStart: 03-19-2025 End: 65-92-3900srve 2.5 mg by inhalation four times daily as needed for wheezing Albuterol Sulfate 2.5 mg /3 mL (0.083 %) solution for nebulization Active 2.5 MG INHALATION Four times daily as needed for shortness of breath or wheezing 75 2 March 19, 2025 11:31am Complies with drug therapyStart: 03-26-2024 End: 16-03-3353Nttckaiye Sulfate 90 mcg/actuation HFA aerosol inhaler Active 2 INH INHALATION Every 6 hours as needed for shortness of breath or wheezing 8.5 1 March 19, 2025 11:31am Complies with drug therapyStart: 49-89-0804Nwrujhmaf Sulfate (Proair Hfa) 90 mcg/actuation HFA aerosol inhaler Active INHALATION August 28, 2023 12:00am FreeTextSi inhalations Inhalation q4 hrs prn; Note: Source Status: Continueprn; Provider: Dontrell Aguilar CStart: 08-28-2023 End: 47-85-1556dkke 3 mL by inhalation every six hours as neededAlbuterol Sulfate 2.5 mg /3 mL (0.083 %) solution for nebulization Discontinued 2.5 MG INHALATION Every 6 hours as needed for shortness of breath or wheezing August 28, 2023 12:00am March 19, 2025 11:31am 3 ml as needed Inhalation every 6 hrs; Note: Source Status: Continueprn; Provider: Jacky Mayestart: 08-28-2023 End: 02-88-8915Rbmycmdit Sulfate (Proair Hfa) 90 mcg/actuation HFA aerosol inhaler Discontinued INHALATION August 28, 2023 12:00am March 26, 2024 1:03pm FreeTextSi inhalations Inhalation q4 hrs prn; Note: Source Status: Continueprn; Provider: Dontrell Aguilar CStart: 56-44-6951Gmbbmdyoc Sulfate (2.5 MG/3ML) 0.083% 3 ml as needed Inhalation every 6 hrs prn Nov, Active Start: 74-17-2724Dzcfbqclj Sulfate (2.5 MG/3ML) 0.083% 3 ml as needed Inhalation every 6 hrs prn Nov, ActiveStart: 11-66-0161tqwr 2 puff(s) by inhalation every four hours as neededAlbuterol Sulfate HFA 108 (90 Base) MCG/ACT 2 puffs as needed Inhalation every 4 hrs for 30 day(s) Aug, Active Start: 88-77-7978FmeLuz HFA 108 (90 Base) MCG/ACT 2 inhalations Inhalation q4 hrs prn prn Oct, Activeamitriptyline hydrochloride 25 mg oral tablet (1 source)Tricyclic AntidepressantStart: 05-10-2023 End: 51-13-4849jwua 1 tablet by mouth once daily at bedtimeamitriptyline 25 mg Tab 25 mg = 1 tab(s), Oral, Once a day (at bedtime), X 30 day(s), # 30 tab(s), R efills(s) 2, Pharmacy: [facility]/pharmacy #[id number], 166, cm, 05/10/23 14:36:00 EST, Height/Length Dosing, 123.7, kg, 05/10/23 14:36:00 EST, Weight Dosing Start Date: 05/10/23 Stop Date: 08/08/23 Status: OrderedamLODIPine 5 mg oral tablet (1 source)Dihydropyridine Calcium Channel BlockerStart: 32-71-0056lgij 1 tablet by mouth every twenty-four hoursamLODIPine Besylate 5 MG 1 tablet Orally Once a day for 30 days Jun, Activeatorvastatin 40 mg oral tablet (13 sources)HMG-CoA Reductase InhibitorStart: 80-75-0203zoie 1 tablet by mouth once dailyAtorvastatin 40 mg tablet Active 40 MG PO Daily February 24, 2025 12:00am Complies with drug therapyStart: 09-01-2024 End: 06-92-2969gtsn 1 tablet by mouth once dailyAtorvastatin 20 mg tablet Discontinued 20 MG PO Daily September 01, 2024 12:00am November 27, 2024 11:42am azithromycin 500 mg oral tablet (1 source)Macrolide AntimicrobialStart: 09-70-3897zcfa 1 tablet by mouth once dailyAzithromycin (Zithromax) 500 mg tablet Active 500 MG PO Daily 5 5 0 March 19, 2025 12:00am Complies with drug therapybetamethasone 0.5 mg/ml / clotrimazole 10 mg/ml topical cream (20 sources)Azole Antifungal, CorticosteroidStart: 04-10-2019 End: 15-60-5370Jywgqwxzrvvf-Betamethasone 1-0.05 % cream Active 1 APPLIC TOPICAL Twice daily as needed for as directed July 16, 2024 11:35am FreeTextSi application Externally Twice a day; Note: Source Status: Takingprn; Refills: 3; Qty: 135 gm; Provider: Dontrell Reeder Complies with drug therapyCentrum (1 source)Start: 67-83-2878Bvugpsc Oral, Daily, Refill(s) 0 Start Date: 02/22/11 Status: Orderedcholecalciferol 0.05 mg oral tablet (20 sources)Vitamin DStart: 08-28-2023 End: 78-08-0171htrn 1 tablet by mouth once dailyCholecalciferol (Vitamin D3) 50 mcg (2,000 unit) tablet Active 2000 UNIT PO Daily August 28, 2023 10:48am FreeTextSi tablet Orally Once a day; Note: Source Status: Taking; Provider: Dontrell Reeder Complies with drug therapyStart: 35-05-3260cyai 1 tablet by mouth every twenty-four hoursVitamin D3 50 MCG (2000 UT) 1 tablet Orally Once a day Feb, ActiveStart: 45-68-9135Zvmkqxl D3 125 MCG (5000 UT) as directed Orally once weekly Mar, ActiveStart: 45-73-9729pbbl 25 ug by mouth once dailyVitamin D 25 MCG (1000 UT) 5000 units Orally Once a day Dec, Active Start: 87-53-4929mgvmrpfpvvxuq 10 mg oral tablet (3 sources)Sodium-Glucose Cotransporter 2 InhibitorStart: 32-62-9854nefb 1 tablet by mouth once dailyDapagliflozin Propanediol (Farxiga) 10 mg tablet Active 10 MG PO Daily February 24, 2025 12:00am Complies with drug xcrlonv70 hr dilTIAZem hydrochloride 240 mg extended release oral capsule (20 sources)Calcium Channel BlockerStart: 19-65-2581cddo 1 mg by mouth every twenty-four hoursDiltiazem Hcl (Cartia Xt) 240 mg capsule,extended release 24hr Active MG PO February 24, 2025 12:00am Complies with drug therapyStart: 09-08-2024 End: 83-25-7308rukp 1 capsule by mouth once dailyDiltiazem Hcl 240 mg capsule,extended release 24hr Discontinued 240 MG PO Daily September 08, 2024 10: 07am November 27, 2024 11:43amStart: 09-01-2024 End: 30-20-1468dztd 1 capsule by mouth every twenty-four hoursDiltiazem Hcl 240 mg capsule,extended release 24hr Discontinued MG PO September 01, 2024 12:00am September 08, 2024 10:07amStart: 09-01-2024 End: 84-30-3692phpu 1 capsule by mouth every twenty-four hoursDiltiazem Hcl 240 mg capsule,extended release 24hr Discontinued MG PO September 01, 2024 12:00am September 08, 2024 10:07amdoxycycline hyclate 100 mg oral capsule (4 sources)Tetracycline-class Drugtake 1 capsule by mouth every twelve hours Doxycycline Hyclate 100 MG 1 capsule Orally every 12 hrs for 10 day(s) Active estrogens, conjugated (penitentiary) 0.45 mg oral tablet (1 source)EstrogenStart: 84-13-3213lomi 1 tablet by mouth once dailyPremarin 0.45 mg Tab 0.45 mg = 1 tab(s), Oral, Daily, tab(s), Refills(s) 0 Start Date: 02/22/11 Status: Orderedfluticasone propionate 0.05 mg/actuat metered dose nasal spray (20 sources)CorticosteroidStart: 18-67-8345qtnj 2 spray(s) nasal route in the morningfluticasone (Flonase) 50 MCG/ACT nasal spray Administer 2 sprays into each nostril in the morning. 08/14/2022 ActiveStart: 52-69-9792caue 1 spray(s) nasal route once dailyFluticasone Propionate 50 MCG/ACT 1 spray in each nostril Nasally Once a day Apr, ActiveStart: 36-65-1476ntde 1 spray(s) nasal route once dailyFluticasone Propionate 50 MCG/ACT 1 spray in each nostril Nasally Once a day Apr, ActiveStart: 98-37-9025Ewnjakuzanw Propion-Salmeterol (20 sources)Corticosteroid, beta2-Adrenergic AgonistStart: 69-25-1510Srutlyihewz Propion-Salmeterol (Advair Diskus) 250-50 mcg/dose blister with device Active 1 INH INHALATION Q12H 3 90 3 December 18, 2024 8:30am Complies with drug therapy Start: 78-76-6645Hfgvgyimiqp Propion-Salmeterol (Advair Diskus) 250-50 mcg/dose blister with device Active 1 INH INHALATION Q12H 3 90 December 18, 2024 8:30am Complies with drug therapyStart: 10-29-2023 End: 33-50-5140Yrdvtxmhmyt Propion-Salmeterol (Advair Diskus) 250-50 mcg/dose blister with device Discontinued 1 INH INHALATION Q12H 3 90 3 October 29, 2023 1:18pm December 18, 2024 8:30amStart: 10-29-2023 End: 83-03-1882Csxzdcczlkk Propion-Salmeterol (Advair Diskus) 250-50 mcg/dose blister with device Discontinued 1 INH INHALATION Q12H 3 October 29, 2023 1:18pm December 18, 2024 8:30amStart: 19-99-9096Grgngfawbnb Propion-Salmeterol (Advair Diskus) 250-50 mcg/dose blister with device Active 1 INH INHALATION Q12H October 29, 2023 1:18pm Complies with drug therapyStart: 95-47-4742Kgtzi: 52-78-2108Qazldydijgy Propion-Salmeterol (Advair Diskus) 250-50 mcg/dose blister with device Active 1 INH INHALATION Q12H October 29, 2023 12:18pmStart: 48-69-6256Xgevvprlvya Propion-Salmeterol (Advair Diskus) 250-50 mcg/dose blister with device Active 1 INH INHALATION Q12H October 29, 2023 1:18pmStart: 09-14-2017 End: 74-49-3456Gjxgjpqbprr Propion-Salmeterol (Advair Diskus) 250-50 mcg/dose Blister With Device Discontinued 1 INH INHALATION Q12H September 13, 2017 11:00pm October 29, 2023 12:20pmStart: 09-14-2017 End: 65-00-9064Rpvdxzvpjar Propion-Salmeterol (Advair Diskus) 250-50 mcg/dose Blister With Device Discontinued 1 INH INHALATION Q12H September 14, 2017 12:00am October 29, 2023 1:20pmStart: 47-79-3168Oqnirshtwjl Propion-Salmeterol (Advair Diskus) 250-50 mcg/dose Blister With Device Active 1 INH INHALATION Q12H September 14, 2017 12:00amStart: 50-18-4985phzk 1 puff(s) by inhalation twice daily Advair 250 mcg-50 mcg Powder 1 puff(s), Inhalation, BID, EA, Refill(s) 0 Start Date: 02/22/11 Status: OrderedStart: 46-51-9271oyrtcwacxsi/salmeterol(ADVAIR DISKUS 250 MCG-50 MCG/DOSE FOR INHALATION) Indications: [...] 40 mg oral tablet (3 sources)Loop DiureticStart: 59-97-4461rfaw 1 tablet by mouth once daily Furosemide 40 mg tablet Active 40 MG PO Daily February 24, 2025 12:00am Complies with drug therapylevothyroxine sodium 0.175 mg oral tablet (20 sources)l-ThyroxineStart: 80-88-7089cnza 1 tablet by mouth once daily in the morningLevothyroxine 175 mcg tablet Active 175 MCG PO Daily 90 0 March 02, 2025 12:00am take first thing in the morning on an empty stomach, do not eat or drink for 45 minutes after taking Complies withdrug therapyStart: 11-27-2024 End: 68-36-1799dxnd 1 tablet by mouth once daily in the morningLevothyroxine 200 mcg tablet Discontinued 200 MCG PO Daily 90 90 November 27, 2024 12:00am March 02, 2025 12:14pm take first thing in the morning on an empty stomach, do not eat or drink for 45 min after takingStart: 08-18-2024 End: 88-14-5635eyal 2 tablets by mouth once daily in the morningLevothyroxine 100 mcg tablet Discontinued 200 MCG PO Daily 180 3 August 18, 2024 12:00am November 27, 2024 12:21pm take first thing in the morning on an empty stomach, do not eat or drink for 30-45 min after takingStart: 08-18-2024 End: 98-88-4227Qgwgztdlvknth (Synthroid) 25 mcg tablet Discontinued 25 MCG PO Daily 90 0 August 18, 2024 12:00am September 08, 2024 10:58am take first thing in the morning on an empty stomach, do not eat or drink anything for 30-45 min after taking. Take in addition to 200 MCG (2- 100 MCG tablets) daily for a total of 225 MCG dailyStart: 08-28-2023 End: 17-50-7513ozir 1 tablet by mouth once daily in the morningLevothyroxine (Synthroid) 200 mcg tablet Discontinued 200 MCG PO Daily 90 1 August 28, 2023 11:47amApril 2023 12:49pm take on an empty stomach first thing in the morning do not eat or drink for 30-45 min after takingStart: 71-85-8897Uklvrinnw 200 mcg (0.2 mg) Tab Refills(s) 0 Start Date: 05/10/23 Status: OrderedStart: 74-05-9098vtlqghitdbvhx (SYNTHROID) 200 mcg tablet Take one tablet daily. 90 tablet 1 10/13/2021 ActiveStart: 07-22-2021 End: 95-17-8861whgb 2 tablets by mouth once dailylevothyroxine (SYNTHROID) 112 mcg tablet Take 2 tablets by mouth once daily. 180 tablet 3 07/22/2021 10/13/2021 Discontinued (Course of therapy completed)Start: 73-78-7579xsus 1 tablet by mouth in the morningSynthroid 175 MCG 1 tablet in the morning on an empty stomach Orally alternating with 200 MCG for 90 days PT REQUESTING MYLAN BRAND Oct, ActiveStart: 09-14-2017 End: 10-70-8301ooen 1 tablet by mouth once dailyLevothyroxine (Synthroid) [...] mg/actuat metered dose nasal spray (20 sources)CorticosteroidStart: 71-49-0338Iaxem: 19-47-4975Symhow 0.1 % 1 application Externally Once a day for 90 days prn Mar, ActiveStart: 46-40-6190Fqouaekumi (Elocon) 0.1 % Cream Active 1 APPLIC TOPICAL Daily as needed for Rash September 14, 2017 12:00am Complies with drug therapyStart: 09-14-2017 End: 58-56-7436Xebjtnklli (Nasonex) 50 mcg/actuation spray,non-aerosol Active 2 SPRAY INTRANASAL Daily as needed for allergic symptoms July 16, 2024 11:35am Complies with drug therapyStart: 36-77-9554Mttcpwo Nasal, Daily, Refill(s) 0 Start Date: 02/22/11 Status: OrderedStart: 82-23-5316citwsuwwjf furoate(NASONEX 50 MCG/ACTUATION SPRAY) Koppel twice in each nostril once daily. 0 06/26/2008 Activemometasone (Elocon) 0.1 % cream Elocon ActiveComment on above:Koppel twice in each nostril once daily.ProAir HFA 108 (90 Base) MCG/ACT (20 sources)Start: 63-33-9743LzzZeh HFA 108 (90 Base) MCG/ACT 2 inhalations Inhalation q4 hrs prn prn Oct, Activespironolactone 25 mg oral tablet (3 sources)Aldosterone AntagonistStart: 84-65-6523jygt 0.5 tablet by mouth in the morningSpironolactone 25 mg tablet Active 25 MG PO .COMPLEX February 24, 2025 12:00am 25 mg orally TAKE 1/2 TABLET BY MOUTH IN THE MORNING; Complies with drug therapytraMADol hydrochloride 50 mg oral tablet (6 sources)Opioid AgonistStart: 02-24-2025 End: 36-24-8693lmot 1 tablet by mouth twice daily as needed for painTramadol 50 mg tablet Active 50 MG PO Twice daily as needed for pain 60 30 0 March 02, 2025 12:22pm Chronic pain Other chronic pain Complies with drug therapyStart: 23-92-6893srnornjt Refills(s) 0 Start Date: 05/10/23 Status: OrderedvalACYclovir 1000 mg oral tablet (10 sources)Herpesvirus Nucleoside Analog DNA Polymerase Inhibitor, Herpes Simplex Virus Nucleoside Analog DNA Polymerase Inhibitor, Herpes Zoster Virus Nucleoside Analog DNA Polymerase InhibitorStart: 57-34-3979evio 1 tablet by mouth every eight hoursValtrex 1 GM 1 tablet Orally tid for 7 days Apr, ActiveVitamin D (1 source)Start: 13-80-5756Wkydcer D Refills(s) 0 Start Date: 05/10/23 Status: OrderedVitamin D 25 MCG (1000 UT) (13 sources)Start: 37-67-1377jzlf 25 ug by mouth once dailyVitamin D 25 MCG (1000 UT) 5000 units Orally Once a day Dec, Active Completed/Discontinued Medications MedicationDrug Class(es)DatesSig (Normalized)Sig (Original)amoxicillin 875 mg / clavulanate 125 mg oral tablet (20 sources)Penicillin-class AntibacterialStart: 03-05-2025 End: 02-71-4711vugo 1 tablet by mouth twice daily at mealtimeAmoxicillin-Pot Clavulanate 875-125 mg tablet Discontinued 1 TAB PO Twice daily 20 March 05, 2025 12:00am March 19, 2025 11:10am with foodStart: 10-24-2024 End: 53-96-4644jexr 1 tablet by mouth twice daily at mealtimeAmoxicillin-Pot Clavulanate 875-125 mg tablet Discontinued 1 TAB PO Twice daily October 24, 2024 12:00am November 27, 2024 11:42am with foodStart: 01-08-2024 End: 68-77-9742ebfg 1 tablet by mouth twice daily at mealtimeAmoxicillin-Pot Clavulanate 875-125 mg tablet Discontinued 1 TAB PO Twice daily January 08, 2024 12:00am March 26, 2024 12:37pm with foodStart: 28-03-9901dwrd 1 tablet by mouth every twelve hoursAmoxicillin-Pot Clavulanate 875-125 MG 1 tablet Orally every 12 hrs for 10 day(s) Oct, ActiveStart: 11-14-2022 take 1 tablet by mouth twice daily at mealtimeAmoxicillin-Pot Clavulanate 875- 125 MG 1 tablet Orally bid with food Mar, ActiveStart: 06-75-2128jise 1 tablet by mouth twice daily at mealtimeAmoxicillin-Pot Clavulanate 875-125 MG 1 tablet Orally two times a day with food for 10 day(s) Oct, ActiveStart: 50-00-9115xpsa 1 tablet by mouth twice daily at mealtimeAmoxicillin-Pot Clavulanate 875-125 MG 1 tablet Orally bid with food for 10 day(s) Jul, Activeaspirin 81 mg chewable tablet (10 sources)Platelet Aggregation Inhibitor, Nonsteroidal Anti-inflammatory Drug Start: 09-01-2024 End: 04-63-6327gtsd 1 tablet by mouth once dailyAspirin 81 mg tablet,chewable Discontinued 1 TAB PO Daily September 01, 2024 12:00am November 27, 2024 11:42am cefTRIAXone (20 sources)Cephalosporin AntibacterialStart: 69-34-2007Igcgefwz 500 mg Aug, 1 gcetirizine hydrochloride 10 mg oral tablet (20 sources)Histamine-1 Receptor AntagonistStart: 05-16-2007 End: 39-83-8830rzfk 1 tablet by mouth once dailyCetirizine (Zyrtec) [...] oral tablet (20 sources)Muscle RelaxantStart: 01-30-2018 End: 79-46-8324lnwv 1 tablet by mouth once daily at bedtimeCyclobenzaprine 10 mg tablet Discontinued 10 MG PO Daily at bedtime 5 0 December 16, 2024 9:14am Octob er 2024 11:44am TAKE 1 TABLET AT BEDTIMEStart: 41-23-0417Ayvwe: 09-14-2017 End: 51-84-3300inki 1 tablet by mouth three times daily as needed for muscle spasmsCyclobenzaprine 10 mg Tablet Discontinued 10 MG PO Three times daily as needed for Muscle Spasm September 14, 2017 12:00am September 16, 2017 1:16pm empagliflozin 10 mg oral tablet (5 sources)Sodium-Glucose Cotransporter 2 InhibitorStart: 11-27-2024 End: 37-51-2758kndk 1 tablet by mouth once daily in the morningEmpagliflozin (Jardiance) 10 mg tablet Discontinued 10 MG PO Every morning 3 November 27, 2024 12:00am February 24, 2025 11:08amesomeprazole 40 mg delayed release oral capsule (20 sources)Proton Pump InhibitorStart: 06-26-2008 End: 79-20-1401wkha 1 capsule by mouth once dailyEsomeprazole Magnesium (Nexium) 40 mg Capsule,Delayed Release(Dr/Ec) Discontinued 40 MG PO Daily September 14, 2017 12:00am April 22, 2024 9:16amComment on above:Take one(1) capsule daily.84 hr estradiol 0.19385 mg/hr transdermal system (20 sources)EstrogenStart: 09-14-2017 End: 36-61-9670Scoheljaq (Vivelle-Dot) 0.0375 mg/24 hr Patch Semiweekly Discontinued 1 PATCH TRANSDERML Once 2017 12:00am August 28, 2023 11:12amglimepiride 1 mg oral tablet (20 sources)SulfonylureaStart: 02-22-2023 End: 10-87-3727Ajgksabdpvx 1 mg tablet Discontinued 1 MG PO Daily August 28, 2023 10:09am August 28, 2023 11:12am 1 tablet with breakfast or the first main meal of the day Orally Once a day; Note: Source Status: Start; Refills: 1; Qty: 90 Tablet; Provider: Dontrell Aguilar ( )hydroCHLOROthiazide 25 mg / triamterene 37.5 mg oral capsule (20 sources)Potassium-sparing Diuretic, Thiazide DiureticStart: 09-26-2023 End: 10-88-7517ejkq 1 capsule by mouth once daily in the morningTriamterene- Hydrochlorothiazid 37.5-25 mg capsule Discontinued 1 CAP PO Every morning 30 0 September 12:00am April 11, 2024 1:05pmStart: 65-68-0812muel 1 capsule by mouth in the morningtriamterene-hydroCHLOROthiazide (Dyazide) 37.5-25 MG capsule Indications: Asymmetric SNHL (sensorineural hearing loss) Take 1 capsule by mouth in the morning. 30 capsule 1 09/24/2023 Activehydrocortisone 10 mg/ml / neomycin 3.5 mg/ml / polymyxin b 37989 unt/ml otic solution (12 sources)Aminoglycoside Antibacterial, Polymyxin-class Antibacterial, CorticosteroidStart: 18-40-5409Ilazabwd-Polymyxin-HC 3.5-26192-8 4 drops into affected ear Otic Three times a day for 7 days Jul, Not-TakingKetorolac (20 sources)Nonsteroidal Anti-inflammatory Drug, Cyclooxygenase InhibitorStart: 93-09-9378Euuding per 15 mg Jul, 2 cclisinopril 10 mg oral tablet (20 sources)Angiotensin Converting Enzyme InhibitorStart: 09-16-2017 End: 71-75-4963lbcv 1 tablet by mouth once dailyLisinopril 10 mg tablet Discontinued 10 MG PO Daily 30 0 September 16, 2017 12:00am August 28, 2023 11 :13amlosartan potassium 50 mg oral tablet (20 sources)Angiotensin 2 Receptor BlockerStart: 11-27-2024 End: 58-88-9273mgqf 1 tablet by mouth once dailyLosartan 50 mg tablet Discontinued 50 MG PO Daily 90 November 27, 2024 12:14pm February 24, 2025 11: 08amStart: 12-05-2023 End: 07-27-9203rmps 1 tablet by mouth once dailyLosartan 50 mg tablet Discontinued 50 MG PO Daily 90 April 22, 2024 9:14am September 08, 2024 10 :07amStart: 34-45-5855ukdegqgz Refills(s) 0 Start Date: 05/10/23 Status: Ordered Start: 02-22-2023 End: 20-26-8369nxkk 1 tablet by mouth once dailyLosartan 50 mg tablet Discontinued 50 MG PO Daily August 28, 2023 12:00am August 28, 2023 11:13am Fr eeTextSi tablet Orally Once a day; Note: Source Status: Taking; Refills: 3; Qty: 90 Tablet; Provider: Kg Queentart: 04-47-7417acsk 1 tablet by mouth every twenty-four hoursLosartan Potassium 25 MG 1 tablet Orally Once a day for 30 days Oct, Activemeloxicam 15 mg oral tablet (20 sources)Nonsteroidal Anti-inflammatory DrugStart: 02-24-2025 End: 83-32-8449namr 1 tablet by mouth once dailyMeloxicam 15 mg tablet Discontinued 15 MG PO Daily February 24, 2025 11:18am February 24, 2025 11:32am Start: 01-26-2025 End: 36-46-2424wtye 1 tablet by mouth once dailyMeloxicam 15 mg tablet Discontinued 0 .ROUTE .COMPLEX 90 January 26, 2025 8:53am February 24, 2025 11:19am TAKE 1 TABLET BY MOUTH DAILYStart: 06-13-2024 End: 02-56-6761regt 1 tablet by mouth once dailyMeloxicam 15 mg tablet Discontinued 15 MG PO Daily June 13, 2024 1:22pm January 26, 2025 8:54am Start: 01-14-2024 End: 15-18-7235Qdcqkbtqz 15 mg tablet Discontinued 0 .ROUTE .COMPLEX 90 3 January 14, 2024 10:16am June 13, 2024 1:23pm TAKE 1 TABLET DAILYStart: 01-14-2024 End: 07-62-4492Mhefjdsss 15 mg tablet Discontinued 0 .ROUTE .COMPLEX 90 January 14, 2024 10:16am June 13, 2024 1:23pm TAKE 1 TABLET DAILYStart: 01-14-2024 End: 93-02-6677Yarlcqngl 15 mg tablet Discontinued 0 .ROUTE .COMPLEX 90 January 14, 2024 9:16am June 13, 2024 12:23pm TAKE 1 TABLET DAILYStart: 02-44-1869Vqcgxpqfa 15 mg tablet Active 0 .ROUTE .COMPLEX 90 January 14, 2024 9:16am TAKE 1 TABLET DAILYStart: 61-66-1247Jzjlhapcf Active 0 .ROUTE .COMPLEX 90 January 14, 2024 9:16am TAKE 1 TABLET DAILYStart: 16-04-9922Pxpudfvzg Active 0 .ROUTE .COMPLEX 90 January 14, 2024 10:16am TAKE 1 TABLET DAILYStart: 07-01-2021 End: 78-18-5681mzzh 1 tablet by mouth once dailyMeloxicam 15 mg tablet Discontinued 15 MG PO Daily August 28, 2023 12:00am January 14, 2024 10:17am TAKE 1 TABLET DAILY; Refills: 0; Provider: Dontrell Aguilar C24 hr metFORMIN hydrochloride 500 mg extended release oral tablet (20 sources)BiguanideStart: 06-13-2024 End: 34-15-7730Nataazikl 500 mg tablet extended release 24 hr Discontinued 1000 MG PO .[facility] June 13, 2024 1:22pm February 24, 2025 11:09am 1,000 mg orally BID as normal;Start: 01-14-2024 End: 56-90-4158Jmcmjybgs 500 mg tablet extended release 24 hr Discontinued 0 .ROUTE .[place] [id number] April 22, 2024 9:13am June 13, 2024 1:23pm TAKE 2 TABLETS TWICE A DAY WITH MEALSStart: 01-14-2024 End: 13-52-0954Rzbtxuvks 500 mg tablet extended release 24 hr Discontinued 0 .ROUTE .[place] [address] January 130:41am April 22, 2024 9:14am TAKE 2 TABLETS TWICE A DAY WITH MEALSStart: 01-14-2024 End: 19-82-9682Yjeacllvc 500 mg tablet extended release 24 hr Discontinued 0 .ROUTE .[place] [address] January 1349:41am April 22, 2024 8:14am TAKE 2 TABLETS TWICE A DAY WITH MEALSStart: 82-28-0387Gjbwxuhgn Active 0 .ROUTE .[place] [address] January 14, 2024 9:41am TAKE 2 TABLETS TWICE A DAY WITH MEALS Start: 00-68-4253Zkuptbelq Active 0 .ROUTE .[place] [address] January 14, 2024 10:41am TAKE 2 TABLETS TWICE A DAY WITH MEALSStart: 01-14-2024 End: 66-95-7795gcnj 2 tablets by mouth twice daily at mealtimeMetformin 500 mg tablet extended release 24 hr Discontinued 500 MG PO .[facility] January 14, 2024 10:36am January 14, 2024 10:42am 500 mg orally take 2 (500 mg) tabs twice a day with meals;Start: 10-29-2023 End: 99-11-6704equb 1 tablet by mouth once dailyMetformin 500 mg tablet extended release 24 hr Discontinued 500 MG PO Daily October 29, 2023 2:48pm January 14, 2024 10:37amStart: 43-46-9721rpwqwvphw Refills(s) 0 Start Date: 05/10/23 Status: OrderedStart: 38-29-7300qkna 2 tablets by mouth twice daily at mealtime metFORMIN HCl ER 500 MG 2 tablets Orally bid with meals for 90 days Oct, ActiveStart: 03-56-9744sksz 2 tablets by mouth twice dailymetFORMIN ER (GLUCOPHAGE XR) 500 mg 24 hr tablet Take 2 tablets by mouth twice daily. 360 tablet 3 07/22/2021 ActiveStart: 35-32-3258oudSLIKZV HCl 500 MG 1 tablet with largest meal of the day Orally Once a day Oct, ActiveStart: 09-14-2017 End: 77-17-7059Hzeaptmqz 500 mg Tablet Extended Release 24 Hr Discontinued 500 MG PO Every 48 hours September 14, 2017 12:00am October 29, 2023 2:48pmComment on above:Take 2 tablets by mouth twice daily.montelukast 10 mg oral tablet (20 sources)Leukotriene Receptor AntagonistStart: 02-22-2011 End: 87-59-7234vixs 1 tablet by mouth once daily at bedtimeMontelukast (Singulair) 10 mg Tablet Discontinued 10 MG PO Daily at bedtime September 14, 2017 12:00am April 22, 2024 9:15amComment on above:Take 10 mg by mouth daily at bedtime.Fzsxitdb-Llh-Sztzewp Gluconate (Centrum) 9 mg iron/15 mL Liquid (20 sources)Start: 09-14-2017 End: 28-58-9604ufhk 2 tablets by mouth once izkmcRkbgphpc-Vvs-Wxlnrko Gluconate (Centrum) 9 mg iron/15 mL Liquid Discontinued 2 TAB PO Daily September 13, 2017 11:00pm August 28, 2023 10:13amStart: 09-14-2017 End: 17-80-6085qsyr 2 tablets by mouth once awotrDxnuwofw-Rcj-Ymcktdb Gluconate (Centrum) 9 mg iron/15 mL Liquid Discontinued 2 TAB PO Daily September 14, 2017 12:00am August 28, 2023 11:13amMULTIVIT-MINERALS/FERROUS GLUC (CENTRAM-CARE ORAL) (5 sources)MULTIVIT-MINERALS/FERROUS GLUC (CENTRAM-CARE ORAL) Take by mouth twice daily. 0 ActiveComment on above:Take by mouth twice daily.predniSONE 20 mg oral tablet (20 sources)Start: 09-01-2024 End: 87-72-3114tgtd 3 tablets by mouth once daily, then [...] with food or milk orally;Start: 05-16-2024 End: 16-93-6278uyht 3 tablets by mouth once daily at [...] x3 days orally WITH FOOD OR MILK;Start: 24-76-4193weaufaVDOX 10 MG 4 tablets daily x 3 days, 2 tablets daily x 3 days, 1.5 tablet daily x 7 days, 1 tablet daily x 7 days, 0.5 tablets daily x 7 days Orally Once a day for 27 days Aug, ActiveStart: 36-38-1917udkappGHSL 10 MG 4 tabs x 7 days, 3 tabs x 7 days, 2 tabs x 7 days, 1 tab x 7 days then stop OrallyOnce a day for 28 days Nov, Not-TakingStart: 88-90-0255mvwtgqQLTX 20 MG take 3 tablets Orally x3 days, then 2 tabs x3 days then 1 tab a day x3 days then take 1/2 tablet x 4 days with food or milk for 13 days Oct, ActiveStart: 13-97-8834rrxjkcIKKZ 10 MG 4 tablets daily for 3 days, 2 tablets daily for 3 days, 1 tablet daily for 7 days Orally Once a day for 13 days Aug, ActiveStart: 20-36-4823lafr 1 tablet by mouth every twenty-four hours predniSONE 10 MG 1 tablet Orally Once a day Feb, ActivepredniSONE 5 MG 1/2 tablet Orally weaning down as directed Kxgepl93 hr scopolamine 0.0139 mg/hr transdermal system (14 sources)AnticholinergicStart: 10-72-9159Cyduecqvyji 1 MG/3DAYS 1 patch to skin behind the ear Transdermal change q72 hours Jun, Not-TakingTB Test (20 sources)Start: 02-35-9817GA Test Jan, 0.1 mL24 hr venlafaxine 37.5 mg extended release oral capsule (3 sources)Serotonin and Norepinephrine Reuptake InhibitorStart: 10-07-2021 venlafaxine ER (EFFEXOR XR) 37.5 mg 24 hr capsule take one a day, if tolerated after two weeks increase to two 60 capsule 3 10/07/2021 ActiveComment on above: take one a day, if tolerated after two weeks increase to twoVitamin D [place] ([facility]) (3 sources)Start: 03-30-2016 End: 82-72-0053ncrx 1 capsule by mouth once daily at mealtimeVitamin D [place] ([facility]) Take 1 capsule by mouth daily with food. 0 03/30/2016 10/13/2021 Discontinued (Course of therapy completed)Start: 38-68-7602rajt 1 capsule by mouth once daily at mealtimeVitamin D [place] ([facility]) Take 1 capsule by mouth daily with food. 0 03/30/2016 ActiveComment on above: Take 1 capsule by mouth daily with food. Problems Active Problems Problem ClassificationProblemDateDocumented DateEpisodic/ChronicAbdominal pain (20 sources)Abdominal pain; Translations: [Unspecified abdominal pain]Onset: 03-15-2021 Resolved: 83-61-2906XixyejfhSzjnnji disorders (20 sources)Generalized anxiety disorder; Translations: [Generalized anxiety disorder]Onset: 75-50-1186XezpgcvXqgkkd (20 sources)Asthma; Translations: [Unspecified asthma, uncomplicated]Onset: 02-21-2021 Resolved: 71-39-5763DvsilcmDpezbtd obstructive pulmonary disease and bronchiectasis (8 sources)Pulmonary emphysema; Translations: [Emphysema, unspecified]12-08-2024 ChronicCongestive heart failure; nonhypertensive (10 sources)Chronic diastolic (congestive) heart failure; Translations: [Congestive heart failure]Onset: 18-34-8047ZqhawuoFtrtxald mellitus with complications (5 sources)Type 2 diabetes mellitus; Translations: [Type 2 diabetes mellitus with hyperglycemia]Onset: 89-42-4923XndsrjeXnmqgahw mellitus without complication (20 sources)Type 2 diabetes mellitus without complication; Translations: [Type 2 diabetes mellitus without complications]Onset: 03-15-2021 Resolved: 04-00-4560HemgtgyPxvaryqx mellitus without complication (20 sources)Hyperglycemia; Translations: [Hyperglycemia, unspecified]Episodic Digestive congenital anomalies (20 sources)Disorder of tongue; 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]ChronicDisorders of lipid metabolism (20 sources)Hyperlipidemia; Translations: [Hyperlipidemia, unspecified]Onset: 07-04-2021 Resolved: 21-83-8387QkrnfetE Codes: Natural/environment (2 sources)Bitten by cat, initial encounterEpisodicEsophageal disorders (20 sources)Gastroesophageal reflux disease; Translations: [Gastro-esophageal reflux disease without esophagitis]Onset: 02-21-2021 Resolved: 46-95-9267UamzibhZuzmxfzvr hypertension (20 sources)Hypertensive disorder; Translations: [Essential (primary) hypertension]Onset: 045444-64-4600PndjwzxDaago of unknown origin (1 source)Fever, unspecifiedEpisodicGenitourinary symptoms and ill-defined conditions (4 sources)Nocturia; Translations: [NOCTURIA]Onset: 79-31-3095YfgbmdmvLmykclot; including migraine (20 sources)Headache; Translations: [Headache]EpisodicHeadache; including migraine (4 sources)Headache; including migraine; Translations: [HEADACHE UNSPECIFIED] Onset: 65-22-0876Whcjmvr and fatigue (7 sources)Chronic fatigue syndrome; Translations: [Chronic fatigue, unspecified]Onset: 348768-58-9814DitjtskEkwebcb and fatigue (20 sources)Other fatigue; Translations: [Fatigue]EpisodicMiscellaneous mental health disorders (7 sources)Binge eating disorder; Translations: [Binge eating disorder]Onset: 457124-94-4066PedssteDmdu disorders (20 sources)Depressive disorder; Translations: [Major depressive disorder, single episode, unspecified]Onset: 10-20-2021 Resolved: 14-68-8490JhacsmnGerdci and vomiting (20 sources)Nausea; Translations: [Nausea]EpisodicNoninfectious gastroenteritis (1 source)Noninfective gastroenteritis and colitis, unspecifiedEpisodic Nonspecific chest pain (2 sources)Other chest pain; Translations: [Other chest pain]Onset: 01-05-2025 EpisodicNutritional deficiencies (20 sources)Vitamin D deficiency; Translations: [Vitamin D deficiency, unspecified]Onset: 38-54-6921BwtbgahBhezyxwyghv deficiencies (1 source)Dietary selenium deficiency; Translations: [DIETARY SELENIUM DEFICIENCY]Onset: 89-04-5010IohljzdcRvabguiumjstcg (3 sources)Osteoarthritis; Translations: [Unspecified osteoarthritis, unspecified site]Onset: 581408-75-0892JdyedapHhsah aftercare (20 sources)Long-term current use of systemic steroid; Translations: [halfway (current) use of systemic steroids]EpisodicOther aftercare (9 sources)Other prison (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; Translations: [Long-term (current) use of other medications]Onset: 03-15-2021 Resolved: 35-88-5582CifsjiypGviif aftercare (1 source)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 drugs; Translations: [PENITENTIARY USE ORAL HYPOGLYCEMIC DX]Onset: 81-56-3773JfkawoezOxbnm circulatory disease (20 sources)Elevated blood-pressure reading, without diagnosis of hypertension; Translations: [Elevated blood pressure reading without diagnosis of hypertension]Onset: 10-20-2021 Resolved: 26-91-0132EkusbgjnEjebn connective tissue disease (20 sources)Cramp; Translations: [Cramp and spasm]EpisodicOther connective tissue disease (1 source)Myalgia, unspecified siteEpisodicOther ear and sense organ disorders (7 sources)Sensorineural hearing loss, bilateral; Translations: [Sensorineural hearing loss, bilateral]Onset: 422219-57-0794SkfytleYuxbt ear and sense organ disorders (20 sources)Asymmetrical sensorineural hearing loss; Translations: [Sensorineural hearing loss, bilateral]Onset: 030595-79-8847VgkdnjxKdxpq ear and sense organ disorders (11 sources)Sensorineural hearing loss, bilateral; Translations: [Sensorineural hearing loss, asymmetrical]72-91-5061SoknwqtRggad ear and sense organ disorders (2 sources)Mixed conductive AND sensorineural hearing loss; Translations: [Mixed conductive and sensorineural hearing loss, unilateral, right ear with restricted hearing on the contralateral side]Onset: 577508-84-5455Wepkdin Other ear and sense organ disorders (1 source)Otalgia, right earEpisodicOther ear and sense organ disorders (1 source)Unspecified acute noninfective otitis externa, right earEpisodicOther ear and sense organ disorders (20 sources)Tinnitus; Translations: [Tinnitus, unspecified ear]09-26-2023 EpisodicComment on above:right sided tinnitusOther ear and sense organ disorders (5 sources)Tinnitus, unspecified ear; Translations: [Tinnitus, unspecified] 89-87-0950EzbtvpylHlmwa gastrointestinal disorders (20 sources)Diarrhea; Translations: [Diarrhea, unspecified]39-35-5979Swiepdda Other gastrointestinal disorders (12 sources)Burping; Translations: [Eructation]93-58-5476NuebevkuImjtd gastrointestinal disorders (5 sources)Eructation; Translations: [Flatulence, eructation, and gas pain] 23-40-3457RrxohcczRgwrf liver diseases (20 sources)Steatosis of liver; Translations: [Fatty (change of) liver, not elsewhere classified]ChronicOther liver diseases (20 sources)Inflammatory disease of liver; Translations: [Inflammatory liver disease, unspecified]Onset: 708066-84-7466XpclckjNpcou lower respiratory disease (20 sources)Cough; Translations: [Cough]EpisodicOther lower respiratory disease (6 sources)Wheezing; Translations: [Wheezing]Onset: 10-20-2021 Resolved: 55-94-0206KynjjoxeNsyib lower respiratory disease (3 sources)Shortness of breath; Translations: [SHORTNESS OF BREATH]Onset: 37-85-9116HkunictwVsgxi lower respiratory disease (12 sources)Wheezing; Translations: [Wheezing]81-27-9015XwnaxtsdWmddh lower respiratory disease (12 sources)Cough; Translations: [Acute cough]94-28-6513UmeeteyyKgylg nervous system disorders (20 sources)Chronic pain; Translations: [Other chronic pain]43-98-4975Dgbzteq Other nervous system disorders (20 sources)Other chronic pain; Translations: [Other chronic pain]ChronicOther nervous system disorders (20 sources)Paresthesia of hand ; Translations: [Paresthesia of skin]Episodic Other nervous system disorders (20 sources)Disorder of taste; Translations: [Unspecified disturbances of smell and taste]EpisodicOther non-traumatic joint disorders (4 sources)Pain in unspecified joint; Translations: [Polyarthralgia M25.50] Onset: 03-15-2021 Resolved: 33-69-0169RiwdtgtwBrswd non-traumatic joint disorders (16 sources)Pain in unspecified hip; Translations: [Pain in joint, pelvic region and thigh]EpisodicOther non-traumatic joint disorders (20 sources)Pain in left shoulder; Translations: [Left shoulder pain]Episodic Other non-traumatic joint disorders (20 sources)Hip pain; Translations: [Pain in unspecified hip]56-27-7267Couxnvnv Other nutritional; endocrine; and metabolic disorders (20 sources)Body mass index 40+ - severely obese; Translations: [Body mass index (BMI) 50.0-59.9, adult]Onset: 979426-62-2796WirftdzTrkhz nutritional; endocrine; and metabolic disorders (7 sources)Metabolic syndrome X; Translations: [Metabolic syndrome]Onset: 680806-43-0793PmqieqmUujvt nutritional; endocrine; and metabolic disorders (20 sources)Hypercalcemia; Translations: [Hypercalcemia]ChronicOther nutritional; endocrine; and metabolic disorders (20 sources)Obesity; Translations: [Obesity, unspecified]ChronicOther nutritional; endocrine; and metabolic disorders (2 sources)Abnormal weight lossOnset: 10-20-2021 Resolved: 70-89-3388AyfpqwydQspek nutritional; endocrine; and metabolic disorders (2 sources)Abnormal weight gainEpisodicOther screening for suspected conditions (not mental disorders or infectious disease) (20 sources)CT of chest abnormal; Translations: [Abnormal findings on diagnostic imaging of other specified body structures]45-42-8853XeamlzpCmxydby on above:CT [facility] screening for suspected conditions (not mental disorders or infectious disease) (20 sources)Liver function tests abnormal; Translations: [Other specified abnormal findings of blood chemistry]Onset: 26-79-4950HkaywzoiLvowk upper respiratory disease (20 sources)Seasonal allergy; Translations: [Other seasonal allergic rhinitis] Onset: 099702-99-7671TunbiylXxntb upper respiratory disease (13 sources)Other seasonal allergic rhinitis; Translations: [Allergic rhinitis, cause unspecified]Onset: 02-21-2021 Resolved: 41-17-8175XrdrjbrJchuo upper respiratory disease (2 sources)Allergic rhinitis due to animal hair and dander; Translations: [Allergic rhinitis due to animal (cat) (dog) hair and dander]Onset: 10-04-2022 56-16-0215MfqoftdHxjgd upper respiratory disease (1 source)Nasal congestion; Translations: [NASAL CONGESTION]Onset: 09-14-2022 EpisodicOther upper respiratory disease (4 sources)Nasal sinus problem; Translations: [Other specified disorders of nose and nasal sinuses]57-79-5839XrdhblohEkvfe upper respiratory infections (12 sources)Acute sinusitis, unspecified; Translations: [Acute sinusitis] EpisodicOtitis media and related conditions (20 sources)Dysfunction of eustachian tube; Translations: [Other specified disorders of Eustachian tube, unspecified ear]Onset: 02-64-4251GwmsfffaPjueskbe codes; unclassified (20 sources)Insomnia; Translations: [Insomnia, unspecified]EpisodicResidual codes; unclassified (2 sources)Pain, unspecified; Translations: [PAIN UNSPECIFIED]Onset: 08-23-2022 EpisodicResidual codes; unclassified (1 source)Acquired absence of other specified parts of digestive tract; Translations: [ACQ ABSENCE OTH PART DIGESTV TRACT]Onset: 23-50-7592Pznomeje Residual codes; unclassified (1 source)Acquired absence of both cervix and uterus; Translations: [ACQUIRED ABSENCE BOTH CERVIX AND UTERUS]Onset: 93-61-6641UoojckjhCuqwslvjfwo; intervertebral disc disorders; other back problems (20 sources)Inflammation of sacroiliac joint; Translations: [Sacroiliitis, not elsewhere classified]44-63-9362DqvnbahGdmsyzmazsd; intervertebral disc disorders; other back problems (20 sources)Neck pain; Translations: [Cervicalgia]Onset: 10-20-2021 Resolved: 96-85-8093PzpvthvjQsoudjw disorders (20 sources)Acquired hypothyroidism; Translations: [Hypothyroidism, unspecified] Onset: 09-20-2015 Resolved: 77-41-2694RftuyysShiwacwzwsww (4 sources)COUGH, UNSPECIFIED; Translations: [COUGH, UNSPECIFIED]Onset: 50-38-4062Wjrmmdobzjtx (1 source)PERSONAL HISTORY OF COVID-19; Translations: [PERSONAL HISTORY OF COVID-19]Onset: 99-13-0987Qvpwhdinykry (1 source)CONTACT W/AND (SUSP) EXPOS COVID-19; Translations: [CONTACT W/AND (SUSP) EXPOS COVID-19]Onset: 08-21-2022 Past or Other Problems Problem ClassificationProblemDateDocumented DateEpisodic/ChronicCardiac dysrhythmias (20 sources)Palpitations; Translations: [Palpitations]Onset: 51-12-2411Vhlgozwj Chronic obstructive pulmonary disease and bronchiectasis (1 source)Bronchitis, not specified as acute or chronic; Translations: [Bronchitis J40]Onset: 02-24-2021 Resolved: 56-50-2257NpoiwrieRsrgm aftercare (20 sources)Long-term current use of drug therapy; Translations: [Other prison (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]Onset: 891144-63-4297VuyhkkujNcilr circulatory disease (20 sources)Elevated blood pressure; Translations: [Elevated blood-pressure reading, without diagnosis of hypertension]Onset: 618149-24-6760Truudmtl Other congenital anomalies (2 sources)Porokeratosis; Translations: [Other specified congenital malformations of skin]Onset: 10-04-2022 Resolved: 802591-83-7620WuleyliDrjev connective tissue disease (20 sources)Fibromyalgia; Translations: [Fibromyalgia]Onset: 09-20-2015 90-72-8261LnbfqrcbPomyb connective tissue disease (1 source)Pain in left handOnset: 05-25-2021 Resolved: 96-65-4621RtaytrwzNkppa connective tissue disease (1 source)Pain in leg, unspecifiedOnset: 07-04-2021 Resolved: 89-37-2058VsiazvhcEycre connective tissue disease (1 source)Fibromyalgia; Translations: [Fibromyalgia]Onset: 21-73-3460Qnxccbhn Other ear and sense organ disorders (20 sources)Tinnitus of vascular origin; Translations: [Pulsatile tinnitus, unspecified ear]Onset: 438311-54-7450DfwvqyqhNwgbj ear and sense organ disorders (2 sources)Cholesteatoma of attic; Translations: [Cholesteatoma of attic, right ear]Onset: 963277-75-4021NzvabjfdXslbg ear and sense organ disorders (2 sources)Tinnitus of right ear; Translations: [Tinnitus, right ear]Onset: 104821-99-8851MxdpeolmYsgbt gastrointestinal disorders (12 sources)Diarrhea, unspecified; Translations: [Diarrhea]Onset: 07-30-2024 EpisodicOther nervous system disorders (2 sources)Abnormal taste in mouth; Translations: [Parageusia]Onset: 10-04-2022 09-05-3475FzqjzydfChbcm non-traumatic joint disorders (20 sources)Multiple joint pain; Translations: [Pain in unspecified joint]Onset: 740930-97-7504WidbdxntGwcpz upper respiratory disease (2 sources)Allergic rhinitis due to pollen; Translations: [Allergic rhinitis due to pollen]Onset: 10-04-2022 Resolved: 182880-75-9797DginspxGagnugvehxmr (1 source)Lumbar pain M54.50Onset: 07-04-2021 Resolved: 64-18-2319Zoclrbyfwrxq (1 source)Cough R05.9Onset: 10-20-2021 Resolved: 66-10-3205Szmhhahcopwh (1 source)COUGH, UNSPECIFIED; Translations: [COUGH, UNSPECIFIED]Onset: 07-33-6773Wuttjsr tract infections (20 sources)Urinary tract infectious disease; Translations: [Urinary tract infection, site not specified]Onset: 317978-22-7866Bwctcyhr Results Test NameValueInterpretationReference RangeFacilityBasophils Auto (Bld) [#/Vol] Ordered By: Jeff Jon on 10-03-0053Rzcveklqz (Bld) [#/Vol]0.1 10 3/uL0.0-0.1 [facility] HospitalBasophils/100 WBC Auto (Bld)Ordered By: eJff Jon on 40-07-3201Jkanrlmvo/100 WBC (Bld)1.0 %0.2-2.0[facility] HospitalCholesterol in LDL Calc [Mass/Vol]Ordered By: Jeff Jon on 86-95-0886Qupdsjhtdua in LDL [Mass/Vol]53.0 mg/dLPike Community HospitalComment on above:<100 mg/dl FYTCMDK443-230 mg/dl NEAR OR ABOVE ZKBAXFY052- 159 mg/dl BORDERLINE HPWW091-468 mg/dl HIGH>190 mg/dl VERY HIGHCholesterol in VLDL Calc [Mass/Vol]Ordered By: Jeff Jon on 50-62-9091Cluslncallr in VLDL [Mass/Vol]10.8 mg/dLPike Community HospitalEosinophils/100 WBC Auto (Bld)Ordered By: Jeff Jon on 01-06-1448Jgaveqnuykv/100 WBC (Bld)4.8 %0.9-7.0 [facility] HospitalErythrocyte distribution width Auto (RBC) [Ratio]Ordered By: Jeff Jon on 76-23-0236Veckitmaezb distribution width (RBC) [Ratio]11.9 %11.0-15.0[facility] HospitalGlobulin Calc (S) [Mass/Vol]Ordered By: Jeff Jon on 25-25-1660Rgnckkqm (S) [Mass/Vol]3.8 g/dL [facility] HospitalGlomerular filtration rate (GFR) estimation in non- AmericanOrdered By: Jeff Jon on 13-73-7671WJP/1.73 sq M.predicted among non-blacks MDRD (S/P/Bld) [Vol rate/Area]60 mL/min/{1.73_m2} >=60 mL/min/1.73m 2FSelect Medical Specialty Hospital - Cincinnati NorthGlucose mean value [Mass/volume] in Blood Estimated from glycated hemoglobinOrdered By: Jeff Jon on 85-38-8828Flloagy glucose Estimated from glycated hemoglobin (Bld) [Mass/Vol]194 mg/dLPike Community HospitalHematocrit Auto (Bld) [Volume fraction]Ordered By: Jeff Jon on 44-86-5584Mnqqimugca (Bld) [Volume fraction]44.8 %36.0-48.0[facility] HospitalHemoglobin A1c percentageOrdered By: Jeff Jon on 23-62-2490TmH7t (Bld) [Mass fraction]8.4 % High4.5-6.2FSelect Medical Specialty Hospital - Cincinnati NorthComment on above:ADA RECOMMENDED LIMIT 4.0 - 6.0ADA THERAPEUTIC TARGET < 7.0ACTION SUGGESTED> 7.0Hemoglobin [Mass/volume] in BloodOrdered By: Jeff Jon on 96-47-8149Tdnccwcnez (Bld) [Mass/Vol]15.1 g/dL12.0-16.0[facility] HospitalLaboratory - Chemistry and Chemistry - challengeOrdered By: Jeff Jon on 76-22-7733Dhkdejb [Mass/Vol]4.1 g/dL3.4-5.0[facility] HospitalALP [Catalytic activity/Vol]102 U/Z11-239JvhqcdfmlPike Community HospitalALT [Catalytic activity/Vol]32 U/U10-90BhhhvxmpfPike Community HospitalAST [Catalytic activity/Vol]22 U/P95-07UzngguxtqPike Community HospitalBilirubin [Mass/Vol]0.7 mg/dL0.2-1.0[facility] HospitalCalcium [Mass/Vol]10.0 mg/dL 8.5-10.1FSelect Medical Specialty Hospital - [place] NorthChloride [Moles/Vol]102 mmol/L98-107 [facility] HospitalCholesterol [Mass/Vol]130 mg/dL<=200[facility] HospitalCholesterol in HDL [Mass/Vol]67 mg/gKSmfk68-33TgsvmvhddPike Community HospitalComment on above:> or =60 mg/dl - LOW CARDIOVASCULAR RISK<40 mg/dl - HIGH CARDIOVASCULAR RISKCO2 [Moles/Vol]30.0 mmol/L21.0-32.0 [facility] HospitalCreatinine [Mass/Vol]0.96 mg/dL0.55-1.02 [facility] HospitalFree T4 [Mass/Vol]2.15 ng/dLHigh0.76-1.46 [facility] HospitalGFR/1.73 sq M.predicted MDRD (S/P/Bld) [Vol rate/Area]mL/min/{1.73_m2}>=60 mL/min/1.73m 2FSelect [facility]ty [facility] Glucose [Mass/Vol]145 mg/uEStwi70-855EnijeetfsPike Community HospitalPotassium [Moles/Vol]4.3 mmol/L3.5-5.1FSelect Medical Specialty Hospital - Cincinnati NorthProtein [Mass/Vol] 7.9 g/dL6.4-8.2FOhioHealth Dublin Methodist Hospitalodium [Moles/Vol]142 mmol/L 136-145P[facility] HospitalTriglyceride [Mass/Vol]54 mg/dL<=150 [facility] HospitalTSH Qn0.282 m[IU]/LLow0.358-3.740[facility] HospitalUrea nitrogen [Mass/Vol]19.0 mg/dLHigh7.0-18.0[facility] HospitalUrea nitrogen/Creatinine [Mass ratio]19.8 mg/mgPike Community HospitalLaboratory - Hematology and Cell countsOrdered By: Jeff Jon on 63-74-8095Bbqhvaxh granulocytes/100 WBC (Bld)0.4 %0.0-0.5FSelect Medical Specialty Hospital - Cincinnati NorthLeukocytes [#/volume] corrected for nucleated erythrocytes in Blood by Automated counOrdered By: Jeff Jon on 37-22-9414XRH corrected for nucl RBC Auto (Bld) [#/Vol]8.0 10 3/uL4.0-11.0[facility] HospitalLymphocytes Auto (Bld) [#/Vol]Ordered By: Jeff Jon on 47-22-0557Bcyqfwbhvou (Bld) [#/Vol]2.3 10 3/uL1.2-3.8[facility] HospitalLymphocytes/100 WBC Auto (Bld)Ordered By: Jeff Jon on 02-24-2025 Lymphocytes/100 WBC (Bld)28.9 %20.5-60.0[facility] HospitalH Auto (RBC) [Entitic mass]Ordered By: Jeff Jon on 36-92-9743DRK (RBC) [Entitic mass]31.0 pg26.7-34.0[facility] HospitalMCHC Auto (RBC) [Mass/Vol]Ordered By: Jeff Jon on 31-75-4818QOYM (RBC) [Mass/Vol]33.7 g/dL 29.9-35.2FSelect Medical Specialty Hospital - Cincinnati NorthMCV Auto (RBC) [Entitic vol]Ordered By: Jeff Jon on 77-38-1866FIN (RBC) [Entitic vol]92.0 fL81.0-99.0[facility] HospitalMonocytes Auto (Bld) [#/Vol]Ordered By: Jeff Jon on 79-00-2308Hjhicqbul (Bld) [#/Vol]0.5 10 3/uL0.3-0.8[facility] HospitalMonocytes/100 WBC Auto (Bld)Ordered By: Jeff oJn on 02-24-2025 Monocytes/100 WBC (Bld)6.6 %1.7-12.0[facility] HospitalNeutrophils Auto (Bld) [#/Vol]Ordered By: Jeff Jon on 17-64-9221Dovaqfwjtye (Bld) [#/Vol]4.7 10 3/uL1.4-6.5FSelect Medical Specialty Hospital - Cincinnati NorthNeutrophils/100 WBC Auto (Bld)Ordered By: Jeff Jon on 03-86-3064Bkjrnatdtzr/100 WBC (Bld)58.3 % 43.0-75.0[facility] HospitalNo Panel InformationOrdered By: Jeff Jon on 740504-Lkkkohk Vitamin D Total43.0 ng/mLPike Community HospitalComment on above:<20 ng/mL Vit D ldumyrcys81-<30 ng/mL Vit D obktohaafezu47-370 ng/mL Vit D sufficient>100 ng/mL Potential Toxicity Eosinophils # (Auto)0.4 10 3/uL0.0-0.7FSelect Medical Specialty Hospital - Cincinnati NorthFree Triiodothyronine3.08 pg/mL2.18-3.98[facility] HospitalImmature Granulocyte # (Auto)0.03 10 3/uL0.00-0.03[facility] Platelet mean volume Auto (Bld) [Entitic vol]Ordered By: Jeff Jon on 51-11-8606Lrrezwiq mean volume (Bld) [Entitic vol]9.9 fL9.5-13.5FSelect Medical Specialty Hospital - Cincinnati NorthPlatelets Auto (Bld) [#/Vol]Ordered By: Jeff Jon on 87-80-2814Qjrpytkeo (Bld) [#/Vol]360 10 3/eT022-346CjddqbvumPike Community HospitalRBC Auto (Bld) [#/Vol]Ordered By: Jeff Jon on 79-69-7920AGY (Bld) [#/Vol]4.87 10 6/uL4.20-5.40[facility] Health Systemerum or plasma albumin/globulin mass ratioOrdered By: Jeff Jon on 02-24-2025 Albumin/Globulin [Mass ratio]1.1 {ratio}[facility] Health Systemerum or plasma anion gap determinationOrdered By: Jeff Jon on 86-28-7732Ghyor gap [Moles/Vol]14.3 mmol/LFOhioHealth Dublin Methodist Hospitalerum or plasma insulin measurement (units/volume)Ordered By: Jeff Jon on 66-99-9819Twvmqrh Qn12.7 u[iU]/mL2.6-24.9[facility] HospitalComment on above:Performed at: [facility] Lab[address] [id number] Director: Giuseppe Newell PhD, Phone: [phone] or plasma total cholesterol/high density lipoprotein (HDL) cholesterol mass ratOrdered By: Jeff Jon on 02-24-2025 Cholesterol.total/Cholesterol in HDL [Mass ratio]1.9 {ratio}[facility] HospitalComment on above:3.3 - 4.4 LOW RISK4.4 - 7.1 AVERAGE RISK7.1 - 11.0 MODERATE RISK>11.0 HIGH SMKP49tw 54-08-365857Pv was seen 02/09/25[facility] HospitalFollow-Upon 51-50-3861Fvdjrz-[id number] Canelo Pathak 1965 F Date Provider Department Center 02/09/2025 NEO MORENO NUBIA [facility] Family History Problem Relation Age of Onset Pulmonary embolism Mother Kidney disease Father Heart attack Father Family Status - Relation Status Age at Mother Father Brother Alive Level of Service:33367 SD OFFICE/OUTPATIENT ESTABLISHED MOD MDM 30 [facility] HospitalGlomerular filtration rate (GFR) estimation in non- AmericanOrdered By: Neo Espino on 11-02-5155SMS/1.73 sq M.predicted among non-blacks MDRD (S/P/Bld) [Vol rate/Area]mL/min/{1.73_m2}>=60 mL/min/1.[address]m [address] [place], [place] [address]Laboratory - Chemistry and Chemistry - challengeOrdered By: Neo Espino on 19-04-7251Tlhfthu [Mass/Vol]9.6 mg/dL8.5-10.1FSelect Medical Specialty Hospital - Cincinnati NorthChloride [Moles/Vol] 102 mmol/F29-838GjipomwmgPike Community HospitalCO2 [Moles/Vol]27.3 mmol/L 21.0-32.0[facility] HospitalCreatinine [Mass/Vol]0.94 mg/dL 0.55-1.02[facility] HospitalGFR/1.73 sq M.predicted MDRD (S/P/Bld) [Vol rate/Area]mL/min/{1.73_m2}>=60 mL/min/1.[address]m [address] [place], [place] [address]Glucose [Mass/Vol]175 mg/mDVxmp53-167MgghhuqfePike Community Hospital Potassium [Moles/Vol]4.5 mmol/L3.5-5.1FOhioHealth Dublin Methodist Hospitalodium [Moles/Vol]139 mmol/G203-003OheuztafhPike Community HospitalUrea nitrogen [Mass/Vol]19.0 mg/dLHigh7.0-18.0[facility] HospitalUrea nitrogen/Creatinine [Mass ratio]20.2 mg/mgMount Carmel Health Systemerum or plasma anion gap determinationOrdered By: Neo Fitzpatricklloyd on 76-61-7010Nwvxh gap [Moles/Vol]14.2 mmol/LFSelect Medical Specialty Hospital - [facility] North36on Patient called back and I advised her she could stop Imdur and metformin (per PCP). She was very happy and verbalized understanding.[facility]36LM for patient to return my call.[facility]36on [phone] called s/p cath on 01/08. You started [...] gets very lightheaded and nauseous. Any recommendations? Thanks![facility] SpringfieldTelephoneon 69-05-3041Auufrdhgo [id number] LawsonCanelo Sue 1965 F Date Provider Department Center 01/12/2025 JURGEN HAWKINS NUBIA [facility] Family History Problem Relation Age of Onset Pulmonary embolism Mother Kidney disease Father Heart attack Father Family Status - Relation Status Age at Mother Father Brother AliveNormalUniversity of [facility] 30-37-5848OWHL Attestation signed by Won Blanton MD at 01/08/2025 8:20 AM Won Blanton MD, MPH, FACC, [facility], [facility] Interventional Cardiology Pager Email: [email or web address] Patient: Canelo Pathak Pre-sedation Evaluation: Moderate [...] Hypertension 10/11/2023 Hypothyroidism 10/11/2023 Osteoarthritis 10/11/2023 Other prison (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 10/11/2023 Palpitation 10/11/2023 Polyarthralgia 10/11/2023 Seasonal allergies 10/11/2023 UTI (urinary tract infection) 10/11/2023 Vitamin D deficiency 10/11/2023 Diabetes ([facility]) 09/24/2023 Asymmetric SNHL (sensorineural hearing loss) 09/24/2023 Right-sided tinnitus 09/24/2023 Cholesteatoma of attic of ear, 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 Pulsatile tinnitus of right ear 08/21/2023 Abnormal taste in mouth 10/04/2022 Allergic rhinitis due to animal hair and dander 10/04/2022 Gastroesophageal reflux disease with esophagitis 10/04/2022 Type 2 diabetes mellitus with hyperglycemia, without long-term current use of insulin ([facility]) 10/11/2021 Binge eating disorder 09/20/2015 BMI 50.0-59.9, adult ([facility]) 09/20/2015 CFS (chronic fatigue syndrome) 09/20/2015 Fibromyalgia 09/20/2015 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 Raiza Rocha PGY-4 Pathology Transcriptionist [facility] [1] Past Medical History: Diagnosis Date Abnormal ECG Asthma Diabetes mellitus ([facility]) GERD (gastroesophageal reflux disease) Hyperlipidemia Hypertension [...] two times daily. glimepiri (more content not included)...[facility] SpringfieldHPon [id number] Attestation signed by Won Blanton MD at [...] me. Additional Comments: Won Blanton MD, MPH, [facility], [facility], [facility] Interventional Cardiology Pager Email: [email or web address] H&P reviewed. The patient was examined and there are no changes to the H&P. Will proceed with coronary angiography and right heart catheterization for further evaluation of abnormal stress test and shortness of breath. Consent for blood products obtained. Risks, benefits, and alternatives to procedure discussed with patient in detail who expressed understanding and agreed to proceed.[facility] SpringfieldNURSNOTEon 24-42-6626UESSDUNAQC educated pt on d/c instructions. This included: [...] wheeled off of unit with all of belongings.[facility] SpringfieldOrders Onlyon 02-55-6790Qjowxw [id number] Canelo Pathak 1965 F Date Provider Department Center 01/08/2025 DIA ARCINIEGA [facility] Family History Problem Relation Age of Onset Pulmonary embolism Mother Kidney disease Father Heart attack Father Family Status - Relation Status Age at Mother Father Brother AliveNormalUniversity Wyandot Memorial HospitalBasophils Auto (Bld) [#/Vol]Ordered By: Neo Espino on 09-82-6012Hjdkmobze (Bld) [#/Vol]0.1 10 3/uL0.0-0.1FSelect Medical Specialty Hospital - Cincinnati NorthBasophils/100 WBC Auto (Bld)Ordered By: Neo Espino on 32-75-0508Xytvgeqhk/100 WBC (Bld)1.0 %0.2-2.0[facility] HospitalEosinophils/100 WBC Auto (Bld)Ordered By: Neo Espino on 72-33-1249Ievqbzezyrw/100 WBC (Bld)6.1 %0.9-7.0[facility] HospitalErythrocyte distribution width Auto (RBC) [Ratio]Ordered By: Neo Espino on 82-78-2235Cwbjxocgmko distribution width (RBC) [Ratio]12.2 % 11.0-15.0[facility] HospitalGlomerular filtration rate (GFR) estimation in non- AmericanOrdered By: Neo Espino on 01-06-2025 GFR/1.73 sq M.predicted among non-blacks MDRD (S/P/Bld) [Vol rate/Area] mL/min/{1.73_m2}>=60 mL/min/1.73m 2FSelect Medical Specialty Hospital - Cincinnati NorthHematocrit Auto (Bld) [Volume fraction]Ordered By: Neo Espino on 56-38-1241Gpnsoethje (Bld) [Volume fraction]40.9 %36.0-48.0[facility] Hemoglobin [Mass/volume] in BloodOrdered By: Neo Espino on 01-06-2025 Hemoglobin (Bld) [Mass/Vol]13.7 g/dL12.0-16.0[facility] Laboratory - Chemistry and Chemistry - challengeOrdered By: Neo Espino on 02-25-3197Ssypwyc [Mass/Vol]9.2 mg/dL8.5-10.1FSelect Medical Specialty Hospital - [facility] North Chloride [Moles/Vol]104 mmol/D30-308UkcfgpuexPike Community HospitalCO2 [Moles/Vol]30.0 mmol/L21.0-32.0[facility] HospitalCreatinine [Mass/Vol]0.67 mg/dL0.55-1.02[facility] HospitalGFR/1.73 sq M.predicted MDRD (S/P/Bld) [Vol rate/Area]mL/min/{1.73_m2}>=60 mL/min/1.73m 2 [facility] HospitalGlucose [Mass/Vol]134 mg/dWAwmi34-982UxzroiwkjPike Community HospitalPotassium [Moles/Vol]4.4 mmol/L3.5-5.1FOhioHealth Dublin Methodist Hospitalodium [Moles/Vol]139 mmol/Q412-103WhhutmibmPike Community HospitalUrea nitrogen [Mass/Vol]19.0 mg/dLHigh7.0-18.0[facility] HospitalUrea nitrogen/Creatinine [Mass ratio]28.4 mg/mgPike Community HospitalLaboratory - Hematology and Cell countsOrdered By: Neo Espino on 34-72-2589Fmwfjxqk granulocytes/100 WBC (Bld)0.3 %0.0-0.5FSelect Medical Specialty Hospital - Cincinnati NorthLeukocytes [#/volume] corrected for nucleated erythrocytes in Blood by Automated counOrdered By: Neo Espino on 03-53-4340MLD corrected for nucl RBC Auto (Bld) [#/Vol]7.9 10 3/uL4.0-11.0[facility] HospitalLymphocytes Auto (Bld) [#/Vol]Ordered By: Neo Espino on 01-06-2025 Lymphocytes (Bld) [#/Vol]2.3 10 3/uL1.2-3.8[facility] Lymphocytes/100 WBC Auto (Bld)Ordered By: Neo Espino on 01-06-2025 Lymphocytes/100 WBC (Bld)28.9 %20.5-60.0[facility] Auto (RBC) [Entitic mass]Ordered By: Neo Espino on 01-99-6966FRG (RBC) [Entitic mass]30.9 pg26.7-34.0[facility] HospitalMCHC Auto (RBC) [Mass/Vol]Ordered By: Neo Espino on 15-86-4423VRKR (RBC) [Mass/Vol]33.5 g/dL29.9-35.2FSelect Medical Specialty Hospital - Cincinnati NorthMCV Auto (RBC) [Entitic vol] Ordered By: Neo Espino on 78-70-1944SEU (RBC) [Entitic vol]92.3 fL 81.0-99.0[facility] HospitalMonocytes Auto (Bld) [#/Vol]Ordered By: Neo Espino on 47-43-9296Asilqtxnd (Bld) [#/Vol]0.5 10 3/uL0.3-0.8 [facility] HospitalMonocytes/100 WBC Auto (Bld)Ordered By: Neo Espino on 35-40-2768Xrfmcuklm/100 WBC (Bld)6.4 %1.7-12.0[facility] HospitalNeutrophils Auto (Bld) [#/Vol]Ordered By: Neo Espino on 30-95-7105Lweyttdxfol (Bld) [#/Vol]4.5 10 3/uL1.4-6.5FSelect Medical Specialty Hospital - Cincinnati NorthNeutrophils/100 WBC Auto (Bld)Ordered By: Neo Espino on 01-06-2025 Neutrophils/100 WBC (Bld)57.3 %43.0-75.0[facility] HospitalNo Panel InformationOrdered By: Neo Espino on 70-31-7491Fytndeecpnb # (Auto) 0.5 10 3/uL0.0-0.7FSelect Medical Specialty Hospital - Cincinnati NorthImmature Granulocyte # (Auto) 0.02 10 3/uL0.00-0.03[facility] HospitalPlatelet mean volume Auto (Bld) [Entitic vol]Ordered By: Neo Espino on 34-49-9160Khrufhtk mean volume (Bld) [Entitic vol]10.5 fL9.5-13.5FSelect Medical Specialty Hospital - [facility] North Platelets Auto (Bld) [#/Vol]Ordered By: Neo Espino on 08-25-9960Vopradony (Bld) [#/Vol]358 10 3/oF600-151WoecqozqtPike Community HospitalRBC Auto (Bld) [#/Vol]Ordered By: Neo Espino on 53-23-3850MLF (Bld) [#/Vol]4.43 10 6/uL 4.20-5.40[facility] Systemerum or plasma anion gap determinationOrdered By: Neo Espino on 33-86-7193Okhig gap [Moles/Vol]9.4 mmol/LFSelect Medical Specialty Hospital - Cincinnati NorthHPon 72-38-6150YPBV Cardiology [facility] Subjective Canelo Pathak is a 59 [...] Asymmetric SNHL (sensorineural hearing loss) Osteoarthritis Other prison (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 Palpitation Polyarthralgia Pulsatile tinnitus of right ear Right-sided tinnitus Seasonal allergies Type 2 diabetes mellitus with hyperglycemia, without long-term current use of insulin ([facility]) UTI (urinary tract infection) Vitamin D [...] and GERD who was admitted to the [facility] on 08/05/2024 with chest [...] She is not ill-appearing. (more content not included)...[facility] SpringfieldOffice Visiton 68-69-0464Mabofk-up [id number] Canelo Pathak 1965 F Date Provider Department Center 01/05/2025 NEO MORENO CARD [facility] Family History Problem Relation Age of Onset Pulmonary embolism Mother Kidney disease Father Heart attack Father Family Status - Relation Status Age at Mother Father Brother Alive Level of Service:04869 SD OFFICE/OUTPATIENT ESTABLISHED HIGH [facility] HospitalOrders Onlyon 62-81-0499Xtvzks [id number] Canelo Pathak 1965 F Date Provider Department Center 01/05/2025 [id number], HISTORICAL CARD [facility] Family History Problem Relation Age of Onset Pulmonary embolism Mother Kidney disease Father Heart attack Father Family Status - Relation Status Age at Mother Father Brother AliveNoalUniTogus VA Medical CenterOrders Onlyon 12-29-2024 Orders [id number] Canelo Pathak 1965 F Date Provider Department Center 12/29/2024 [id number], HISTORICAL CARD [facility] Family History Problem Relation Age of Onset Pulmonary embolism Mother Kidney disease Father Heart attack Father Family Status - Relation Status Age at Mother Father Brother AliveNoUC HealthBasophils Auto (Bld) [#/Vol]Ordered By: Jeff Jon on 24-11-9865Mkfwntjdh (Bld) [#/Vol]0.1 10 3/uL 0.0-0.1FSelect Medical Specialty Hospital - Cincinnati NorthBasophils/100 WBC Auto (Bld)Ordered By: Jeff Jon on 03-02-1076Ordbkgzxu/100 WBC (Bld)0.7 %0.2-2.0[facility] HospitalEosinophils/100 WBC Auto (Bld)Ordered By: Jeff Jon on 81-67-0477Oxznjzkcqqm/100 WBC (Bld)4.6 %0.9-7.0[facility] Erythrocyte distribution width Auto (RBC) [Ratio]Ordered By: Jeff Jon on 52-42-6020Ghfudnlvjkd distribution width (RBC) [Ratio]12.0 %11.0-15.0[facility] HospitalGlucose mean value [Mass/volume] in Blood Estimated from glycated hemoglobinOrdered By: Jeff Jon on 80-24-4180Hwrbhbb glucose Estimated from glycated hemoglobin (Bld) [Mass/Vol]186 mg/dLPike Community HospitalHematocrit Auto (Bld) [Volume fraction]Ordered By: Jeff Jon on 76-52-4151Kjuuwaizgp (Bld) [Volume fraction]40.2 %36.0-48.0[facility] HospitalHemoglobin A1c percentageOrdered By: Jeff Jon on 11-26-2024 HbA1c (Bld) [Mass fraction]8.1 %High4.5-6.2FSelect Medical Specialty Hospital - [facility] Comment on above:ADA RECOMMENDED LIMIT 4.0 - 6.0ADA THERAPEUTIC TARGET < 7.0ACTION SUGGESTED> 7.0Hemoglobin [Mass/volume] in BloodOrdered By: Jeff Jon on 98-62-4799Ojjmmjimyr (Bld) [Mass/Vol]13.4 g/dL12.0-16.0[facility] HospitalLaboratory - Chemistry and Chemistry - challengeOrdered By: Jeff Jon on 12-78-2800Sabuagsji Ql (U)NegativeNEGATIVEPike Community HospitalGlucose (U) [Mass/Vol]NegativeNEGATIVEPike Community HospitalKetones Ql (U)NegativeNEGKeenan Private HospitalpH (U)6.0 [pH]5.0-9.0[facility] Health Systempecific gravity (U) [Rel density] >=1.476Qznijnun5.005-1.025P[facility] HospitalUrobilinogen Qn (U) 0.2 {David'U}/dL0.2-1.0[facility] HospitalLaboratory - Hematology and Cell countsOrdered By: Jeff Jon on 08-21-5495Pilkzeao granulocytes/100 WBC (Bld)0.6 %High0.0-0.5FSelect Medical Specialty Hospital - [facility] North Laboratory - Specimen informationOrdered By: Jeff Jon on 11-26-2024 Appearance (U)CLEARCLEARFSelect Medical Specialty Hospital - Cincinnati NorthColor (U)LT. YELLOW YELLOWPike Community HospitalLaboratory - UrinalysisOrdered By: Jeff Jon on 81-61-4432Rkahwdyyv esterase Test strip Ql (U)NegativeNEGATIVE [facility] HospitalNitrite Ql (U)NegativeNEGATIVEPike Community HospitalProtein Ql (U)NegativeNEG/TRACEPike Community HospitalLeukocytes [#/volume] corrected for nucleated erythrocytes in Blood by Automated counOrdered By: Jeff Jon on 58-49-5021ZMY corrected for nucl RBC Auto (Bld) [#/Vol]7.2 10 3/uL4.0-11.0[facility] Lymphocytes Auto (Bld) [#/Vol]Ordered By: Jeff Jon on 40-33-3849Bcxujtujrnh (Bld) [#/Vol]1.9 10 3/uL1.2-3.8[facility] HospitalLymphocytes/100 WBC Auto (Bld)Ordered By: Jeff Jon on 22-69-6294Jbocqxmuucz/100 WBC (Bld) 25.8 %20.5-60.0[facility] HospitalH Auto (RBC) [Entitic mass] Ordered By: Jeff Jon on 32-66-0251KRY (RBC) [Entitic mass]31.0 pg26.7-34.0 [facility] HospitalMCHC Auto (RBC) [Mass/Vol]Ordered By: Jeff Jon on 10-25-6412UTZS (RBC) [Mass/Vol]33.3 g/dL29.9-35.2FSelect Medical Specialty Hospital - Cincinnati NorthMCV Auto (RBC) [Entitic vol]Ordered By: Jeff Jon on 11-26-2024 MCV (RBC) [Entitic vol]93.1 fL81.0-99.0[facility] Monocytes Auto (Bld) [#/Vol]Ordered By: Jeff Jon on 67-64-3915Fnhadqrft (Bld) [#/Vol]0.6 10 3/uL0.3-0.8[facility] HospitalMonocytes/100 WBC Auto (Bld)Ordered By: Jeff Jon on 23-01-0771Wfaukoxcp/100 WBC (Bld)7.7 % 1.7-12.0[facility] HospitalNeutrophils Auto (Bld) [#/Vol]Ordered By: Jeff Jon on 22-26-8062Cjiuntzgpgb (Bld) [#/Vol]4.4 10 3/uL1.4-6.5 [facility] HospitalNeutrophils/100 WBC Auto (Bld)Ordered By: Jeff Jon on 77-79-5156Fouseoamdic/100 WBC (Bld)60.6 %43.0-75.0[facility] HospitalNo Panel InformationOrdered By: Jeff Jon on 11-26-2024 Eosinophils # (Auto)0.3 10 3/uL0.0-0.7FSelect Medical Specialty Hospital - Cincinnati NorthImmature Granulocyte # (Auto)0.04 10 3/uLHigh0.00-0.03[facility] Urine Occult BloodNegativeNEGATIVEPike Community HospitalPlatelet mean volume Auto (Bld) [Entitic vol]Ordered By: Jeff Jon on 97-05-5253Snuohptc mean volume (Bld) [Entitic vol]9.6 fL9.5-13.5FSelect Medical Specialty Hospital - [facility] North Platelets Auto (Bld) [#/Vol]Ordered By: Jeff Jon on 79-27-2172Fzrwbmrar (Bld) [#/Vol]306 10 3/aI221-477ZbzuqlzbhPike Community HospitalRBC Auto (Bld) [#/Vol]Ordered By: Jeff Jon on 52-37-9663LXC (Bld) [#/Vol]4.32 10 6/uL 4.20-5.40[facility] HospitalUrine Cultureon 07-26-9396Kwufnlax identified Cx Nom (U)75,000 colonies/ml mixed bacterial skin contaminants 2 Days PERFORMED BY: [facility] [address] [place] [address] PATHOLOGIST PROCESS MECHANIC ASAD DANIELLE M.D.NormalThe [facility] Physician GroupComment on above: Performed By: #### CUU #### [facility] [address] [place] [address] USACholesterol in LDL Calc [Mass/Vol]Ordered By: Jfef Jon on 34-38-2851Jsoxrwhytna in LDL [Mass/Vol]107.0 mg/dLPike Community HospitalComment on above:<100 mg/dl BHPAAVC933-082 mg/dl NEAR OR ABOVE NMESDXD518-432 mg/dl BORDERLINE ZGHI210-864 mg/dl HIGH>190 mg/dl VERY HIGH Cholesterol in VLDL Calc [Mass/Vol]Ordered By: Jeff Jon on 11-20-2024 Cholesterol in VLDL [Mass/Vol]18.2 mg/dLPike Community Hospital Estimated glomerular filtration rate (GFR) non- AmericanOrdered By: Jeff Jon on 10-13-4629KHN/1.73 sq M.predicted among non-blacks MDRD (S/P/Bld) [Vol rate/Area]mL/min/{1.73_m2}>=60 mL/min/1.73m 2FSelect Medical Specialty Hospital - Cincinnati NorthGlobulin Calc (S) [Mass/Vol]Ordered By: Jeff Jon on 31-27-5060Bizxollf (S) [Mass/Vol]3.3 g/dLPike Community HospitalLaboratory - Chemistry and Chemistry - challengeOrdered By: Jeff Jon on 73-90-2485Cwtoalp [Mass/Vol]3.4 g/dL3.4-5.0[facility] HospitalALP [Catalytic activity/Vol]82 U/U52-057XnvivpdrlPike Community HospitalALT [Catalytic activity/Vol]33 U/R94-20OosdvnpjqPike Community HospitalAST [Catalytic activity/Vol]20 U/W48-57WjmegjjilPike Community HospitalBilirubin [Mass/Vol]0.4 mg/dL0.2-1.0[facility] HospitalCalcium [Mass/Vol]9.3 mg/dL 8.5-10.1FSelect Medical Specialty Hospital - Cincinnati NorthChloride [Moles/Vol]104 mmol/L98-107 [facility] HospitalCholesterol [Mass/Vol]207 mg/dLHigh<=200 [facility] HospitalCholesterol in HDL [Mass/Vol]82 mg/eGEksa81-64 [facility] HospitalComment on above:> or =60 mg/dl - LOW CARDIOVASCULAR RISK<40 mg/dl - HIGH CARDIOVASCULAR RISKCO2 [Moles/Vol]27.2 mmol/L21.0-32.0[facility] HospitalCreatinine [Mass/Vol]0.68 mg/dL 0.55-1.02[facility] HospitalFree T4 [Mass/Vol]1.68 ng/dLHigh 0.76-1.46[facility] HospitalGFR/1.73 sq M.predicted MDRD (S/P/Bld) [Vol rate/Area]mL/min/{1.73_m2}>=60 mL/min/1.73m 2FSelect Medical Specialty Hospital - Cincinnati NorthGlucose [Mass/Vol]163 mg/cPCqkp77-050GmppdkpzwP[facility] Hospital Potassium [Moles/Vol]4.5 mmol/L3.5-5.1FSelect Medical Specialty Hospital - Cincinnati NorthProtein [Mass/Vol]6.7 g/dL6.4-8.2FOhioHealth Dublin Methodist Hospitalodium [Moles/Vol]141 mmol/P505-422EfmehujgfPike Community HospitalTriglyceride [Mass/Vol]91 mg/dL <=150P[facility] HospitalTSH Qn0.712 m[IU]/L0.358-3.740[facility] HospitalUrea nitrogen [Mass/Vol]15.0 mg/dL7.0-18.0[facility] HospitalUrea nitrogen/Creatinine [Mass ratio]22.1 mg/mgPike Community HospitalLaboratory - Chemistry and Chemistry - challengeOrdered By: Neo Espino on 58-75-1355Sbnksgals.direct [Mass/Vol]0.1 mg/dL0.0-0.2 [facility] HospitalCK [Catalytic activity/Vol]29 U/L26-192 [facility] HospitalLaboratory - Hematology and Cell countsOrdered By: Outside Provider on 47-79-6155QSB (Bld) [Velocity]15 mm/h<=30[facility] HospitalNo Panel InformationOrdered By: Jeff Jon on [id number] Vitamin D Total34.8 ng/mLPike [facility] Hospital Comment on above:<20 ng/mL Vit D aaphzkfzk02-<30 ng/mL Vit D vmuxxejvyckx62-715 ng/mL Vit D sufficient>100 ng/mL Potential ToxicityFree Triiodothyronine3.27 pg/mL2.18-3.98[facility] HospitalNo Panel InformationOrdered By: Outside Provider on [id number]-Reactive Protein, Quantitative<0.50 mg/dL<=0.50 [facility] Systemcl-70 (Scleroderma) Antibody<0.2 AI0.0-0.9 [facility] HospitalComment on above:Performed at: [facility] [place], [place] [id number] Director: Giuseppe Newell PhD, Phone: [phone] nuclear antibody titerOrdered By: Outside Provider on 83-77-4714Qxznxbw Ab (S) [Titer]Negative.[facility] Comment on above:Negative <1:80 Borderline 1:80 Positive >1:80ICAP nomenclature: AC-0For more information about Hep-2 cell patterns useANApatterns.org, the official website for theInternational Consensus on Antinuclear Antibody (KATHY)Patterns (ICAP).Performed at: [facility] CenterFcvqkw[address] [place], [id number] Director: Giuseppe Newell PhD, Phone: [phone] or plasma albumin/globulin mass ratioOrdered By: Jeff Jon on 11-20-2024 Albumin/Globulin [Mass ratio]1.0 {ratio}[facility] Systemerum or plasma anion gap determinationOrdered By: Jeff Jon on 06-26-8135Tfdoh gap [Moles/Vol]14.3 mmol/LFOhioHealth Dublin Methodist Hospitalerum or plasma rheumatoid factor measurement (units/volume)Ordered By: Outside Provider on 19-32-2551Exxcsjdukt factor Qn[IU]/mL<14.0[facility] Comment on above:Performed at: [facility] [place], [place] [id number] Director: Giuseppe Newell PhD, Phone: [phone] or plasma total cholesterol/high density lipoprotein (HDL) cholesterol mass ratOrdered By: Jeff Jon on 57-42-3954Kicqcjodwjr.total/Cholesterol in HDL [Mass ratio]2.5 {ratio}[facility] HospitalComment on above:3.3 - 4.4 LOW RISK4.4 - 7.1 AVERAGE RISK7.1 - 11.0 MODERATE RISK>11.0 HIGH RISKLaboratory - Chemistry and Chemistry - challengeon 21-87-3198Qaae T4 [Mass/Vol]2.01 ng/dLHigh0.76-1.46 [facility] HospitalTSH Qn0.260 m[IU]/LLow0.358-3.740[facility] HospitalNo Panel Informationon 26-15-4018Cqgw Triiodothyronine 2.19 pg/mL2.18-3.98[facility] HospitalOffice Visiton 08-25-2024 Follow-up [id number] Canelo Pathak 1965 F Date Provider Department Center 08/25/2024 NEO MORENO Family History Problem Relation Age of Onset Pulmonary embolism Mother Kidney disease Father Heart attack Father Family Status - Relation Status Age at Mother Father Brother Alive Level of Service:82082 SD OFFICE/OUTPATIENT NEW MODERATE MDM 45 MINUTESNormal [facility] CenterBasophils Auto (Bld) [#/Vol]on 08-06-2024 Basophils (Bld) [#/Vol]Automated basophil count0.0-0.1FSelect Medical Specialty Hospital - Cincinnati NorthBasophils/100 WBC Auto (Bld)on 86-43-0770Hmtvfwxhg/100 WBC (Bld)Automated basophil %0.2-2.0[facility] HospitalCholesterol in LDL Calc [Mass/Vol]on 42-10-4633Cvgdagmmsev in LDL [Mass/Vol]Cholesterol in LDL [Mass/volume] in Serum or Plasma by calculationPike Community Hospital Comment on above:<100 mg/dl JBBIDHL525-660 mg/dl NEAR OR ABOVE ROTWRKO326-015 mg/dl BORDERLINE TZBQ039-994 mg/dl HIGH>190 mg/dl VERY HIGHCholesterol in VLDL Calc [Mass/Vol]on 41-40-2440Bzkglbicgdy in VLDL [Mass/Vol]Cholesterol in VLDL [Mass/volume] in Serum or Plasma by calculationPike Community Hospital Eosinophils/100 WBC Auto (Bld)on 74-07-0472Visjprdenok/100 WBC (Bld)Automated eosinophil %0.9-7.0[facility] HospitalErythrocyte distribution width Auto (RBC) [Ratio]on 03-38-4600Gblihizvoll distribution width (RBC) [Ratio]Erythrocyte distribution width [Ratio] by Automated count11.0-15.0 [facility] HospitalEstimated glomerular filtration rate (GFR) non- Americanon 75-37-3023WLM/1.73 sq M.predicted among non-blacks MDRD (S/P/Bld) [Vol rate/Area]Estimated glomerular filtration rate (GFR) non->=60 mL/min/1.73m 2FSelect Medical Specialty Hospital - Cincinnati NorthGlobulin Calc (S) [Mass/Vol]on 90-29-1672Lnisizyh (S) [Mass/Vol]Serum globulin measurement by calculation (mass/volume)[facility] HospitalGlucose mean value [Mass/volume] in Blood Estimated from glycated hemoglobinon 14-99-7229Miwrvsn glucose Estimated from glycated hemoglobin (Bld) [Mass/Vol]Glucose mean value [Mass/volume] in Blood Estimated from glycated hemoglobinPike Community HospitalHematocrit Auto (Bld) [Volume fraction]on 80-45-4271Pujayjcpvu (Bld) [Volume fraction]Hematocrit [Volume Fraction] of Blood by Automated count 36.0-48.0[facility] HospitalHemoglobin A1c percentageon 08-06-2024 HbA1c (Bld) [Mass fraction]Hemoglobin A1c percentageHigh4.5-6.2FSelect Medical Specialty Hospital - Cincinnati NorthComment on above:ADA RECOMMENDED LIMIT 4.0 - 6.0ADA THERAPEUTIC TARGET < 7.0ACTION SUGGESTED> 7.0Hemoglobin [Mass/volume] in Bloodon 58-15-2748Miinxkazal (Bld) [Mass/Vol]Hemoglobin [Mass/volume] in Blood12.0-16.0 [facility] HospitalLaboratory - Chemistry and Chemistry - challengeon 19-17-3168Zqlxypm [Mass/Vol]4.1 g/dL3.4-5.0[facility] HospitalALP [Catalytic activity/Vol]91 U/O21-493KwcemtgtoPike Community HospitalALT [Catalytic activity/Vol]24 U/F58-10BjwtbigydP[facility] Community Hospital AST [Catalytic activity/Vol]23 U/S32-21AwkrnuptgPike Community Hospital Bilirubin [Mass/Vol]0.5 mg/dL0.2-1.0[facility] HospitalCalcium [Mass/Vol]10.1 mg/dL8.5-10.1FSelect Medical Specialty Hospital - Cincinnati NorthChloride [Moles/Vol]100 mmol/W65-705NithzteeiPike Community HospitalCholesterol [Mass/Vol]258 mg/dLHigh<=200[facility] HospitalCholesterol in HDL [Mass/Vol]86 mg/rDThjg87-51JqjijskpaPike Community HospitalComment on above:> or =60 mg/dl - LOW CARDIOVASCULAR RISK<40 mg/dl - HIGH CARDIOVASCULAR RISKCO2 [Moles/Vol]27.5 mmol/L21.0-32.0[facility] HospitalCreatinine [Mass/Vol]0.91 mg/dL0.55-1.02[facility] HospitalGFR/1.73 sq M.predicted MDRD (S/P/Bld) [Vol rate/Area]mL/min/{1.73_m2}>=60 mL/min/1.73m 2 [facility] HospitalGlucose [Mass/Vol]125 mg/uAAsva00-936EonpkaytgPike Community HospitalMagnesium [Mass/Vol]1.9 mg/dL1.8-2.4FSelect Medical Specialty Hospital - Cincinnati NorthPotassium [Moles/Vol]4.0 mmol/L3.5-5.1FSelect Medical Specialty Hospital - Cincinnati NorthProtein [Mass/Vol]7.7 g/dL6.4-8.2FOhioHealth Dublin Methodist Hospitalodium [Moles/Vol]140 mmol/O836-746RywdjzmtfPike Community HospitalTriglyceride [Mass/Vol]158 mg/dLHigh<=150[facility] HospitalTSH Qn50.079 m[IU]/LHigh0.358-3.740[facility] HospitalUrea nitrogen [Mass/Vol] 18.0 mg/dL7.0-18.0[facility] HospitalUrea nitrogen/Creatinine [Mass ratio]19.8 mg/mgPike Community HospitalLaboratory - Hematology and Cell countson 32-71-5604Kdqjguch granulocytes/100 WBC (Bld)0.5 %0.0-0.5 [facility] HospitalLeukocytes [#/volume] corrected for nucleated erythrocytes in Blood by Automated counon 38-54-7995RTJ corrected for nucl RBC Auto (Bld) [#/Vol]Leukocytes [#/volume] corrected for nucleated erythrocytes in Blood by Automated coun4.0-11.0[facility] HospitalLymphocytes Auto (Bld) [#/Vol]on 04-05-3641Dunzwcswzzi (Bld) [#/Vol]Lymphocytes [#/volume] in Blood by Automated count1.2-3.8[facility] HospitalLymphocytes/100 WBC Auto (Bld)on 16-51-2136Chtuhxmsclp/100 WBC (Bld)Lymphocytes/100 leukocytes in Blood by Automated count20.5-60.0[facility] HospitalH Auto (RBC) [Entitic mass]on 76-66-0746VEA (RBC) [Entitic mass]MCH [Entitic mass] by Automated count26.7-34.0[facility] HospitalMCHC Auto (RBC) [Mass/Vol]on 17-83-6008FMJW (RBC) [Mass/Vol]MCHC [Mass/volume] by Automated count29.9-35.2FSelect Medical Specialty Hospital - Cincinnati NorthMCV Auto (RBC) [Entitic vol]on 50-28-4223UGP (RBC) [Entitic vol]MCV [Entitic volume] by Automated count 81.0-99.0[facility] HospitalMonocytes Auto (Bld) [#/Vol]on 90-62-8339Hsemteipu (Bld) [#/Vol]Automated blood monocyte count0.3-0.8[facility] HospitalMonocytes/100 WBC Auto (Bld)on 33-35-8797Vnmsiqmbq/100 WBC (Bld)Automated monocyte %1.7-12.0[facility] Neutrophils Auto (Bld) [#/Vol]on 43-68-8864Gnvncktktbz (Bld) [#/Vol]Neutrophils [#/volume] in Blood by Automated count1.4-6.5FSelect Medical Specialty Hospital [facility] North Neutrophils/100 WBC Auto (Bld)on 38-50-3320Gxljavszuej/100 WBC (Bld)Automated neutrophil %43.0-75.0[facility] HospitalNo Panel Informationon 84-66-7851Pdaadwtabok # (Auto)0.4 10 3/uL0.0-0.7FSelect Medical Specialty Hospital - Cincinnati NorthImmature Granulocyte # (Auto)0.04 10 3/uLHigh0.00-0.03[facility] HospitalTroponin I High Sensitivity6.6 pg/mL4.0-51.3FSelect Medical Specialty Hospital - Cincinnati NorthComment on above:CUT-OFF POINTS HAVE BEEN ESTABLISHED BASED [...] INFORMATION.Platelet mean volume Auto (Bld) [Entitic vol]on 90-92-2212Bguyadji mean volume (Bld) [Entitic vol] Platelet mean volume [Entitic volume] in Blood by Automated count9.5-13.5 [facility] HospitalPlatelets Auto (Bld) [#/Vol]on 08-06-2024 Platelets (Bld) [#/Vol]Platelets [#/volume] in Blood by Automated kwemw387-366 [facility] HospitalRBC Auto (Bld) [#/Vol]on 79-86-6199SDB (Bld) [#/Vol]Erythrocytes [#/volume] in Blood by Automated count4.20-5.40[facility] Systemerum or plasma albumin/globulin mass ratioon 08-06-2024 Albumin/Globulin [Mass ratio]Serum or plasma albumin/globulin mass ratio [facility] Systemerum or plasma anion gap determinationon 19-51-8080Bgzzn gap [Moles/Vol]Serum or plasma anion gap determinationMount Carmel Health Systemerum or plasma total cholesterol/high density lipoprotein (HDL) cholesterol mass constantin 53-91-1654Hkhjhnptsss.total/Cholesterol in HDL [Mass ratio]Serum or plasma total cholesterol/high density lipoprotein (HDL) cholesterol mass ratPike Community HospitalComment on above:3.3 - 4.4 LOW RISK4.4 - 7.1 AVERAGE RISK7.1 - 11.0 MODERATE RISK>11.0 HIGH RISK Basophils Auto (Bld) [#/Vol]on 91-14-6891Rtdarhbym (Bld) [#/Vol]Automated basophil count0.0-0.1FSelect Medical Specialty Hospital - Cincinnati NorthBasophils/100 WBC Auto (Bld)on 58-58-8867Otafpattk/100 WBC (Bld)Automated basophil %0.2-2.0[facility] HospitalEosinophils/100 WBC Auto (Bld)on 08-05-2024 Eosinophils/100 WBC (Bld)Automated eosinophil %0.9-7.0[facility] HospitalErythrocyte distribution width Auto (RBC) [Ratio]on 93-58-7249Otxlpzaklmq distribution width (RBC) [Ratio]Erythrocyte distribution width [Ratio] by Automated count11.0-15.0[facility] HospitalEstimated glomerular filtration rate (GFR) non- Americanon 20-07-6940BCC/1.73 sq M.predicted among non-blacks MDRD (S/P/Bld) [Vol rate/Area]Estimated glomerular filtration rate (GFR) non->=60 mL/min/1.73m 2FSelect Medical Specialty Hospital - Cincinnati NorthGlobulin Calc (S) [Mass/Vol]on 76-65-7242Rqriklwm (S) [Mass/Vol]Serum globulin measurement by calculation (mass/volume)[facility] HospitalHematocrit Auto (Bld) [Volume fraction]on 60-25-6132Slnhscwzrm (Bld) [Volume fraction]Hematocrit [Volume Fraction] of Blood by Automated count 36.0-48.0[facility] HospitalHemoglobin [Mass/volume] in Bloodon 04-23-9948Ovyeugswtz (Bld) [Mass/Vol]Hemoglobin [Mass/volume] in Blood12.0-16.0 [facility] HospitalINR in Platelet poor plasma by Coagulation assayon 81-88-6986VZX Coag (PPP) [Relative time]INR in Platelet poor plasma by Coagulation assayPike Community HospitalComment on above:DESIRED INR:2.0-3.0 CONDITIONS NOT LISTED BELOW2.5-3.5 FOR PROSTHETIC HEART VALVE REPLACEMENT2.5-3.5 RECURRENT THROMBOSISLaboratory - Chemistry and Chemistry - challengeon 63-35-1351Piuslwp [Mass/Vol]3.7 g/dL3.4-5.0[facility] HospitalALP [Catalytic activity/Vol]91 U/C95-191CjrtwpwoiPike Community HospitalALT [Catalytic activity/Vol]20 U/T78-28BtuhmmqzxPike Community Hospital AST [Catalytic activity/Vol]20 U/R32-48JwoefidkyPike Community Hospital Bilirubin [Mass/Vol]0.4 mg/dL0.2-1.0[facility] HospitalCalcium [Mass/Vol]10.0 mg/dL8.5-10.1FSelect Medical Specialty Hospital - Cincinnati NorthChloride [Moles/Vol]102 mmol/E57-288IgjkbqtaxPike Community HospitalCO2 [Moles/Vol]28.1 mmol/L21.0-32.0[facility] HospitalCreatinine [Mass/Vol]0.81 mg/dL 0.55-1.02[facility] HospitalGFR/1.73 sq M.predicted MDRD (S/P/Bld) [Vol rate/Area]mL/min/{1.73_m2}>=60 mL/min/1.73m 2FSelect Medical Specialty Hospital - Cincinnati NorthGlucose [Mass/Vol]146 mg/eMDsvd30-550HpwgffcsePike Community Hospital Magnesium [Mass/Vol]1.7 mg/dLLow1.8-2.4FSelect Medical Specialty Hospital [facility] North Natriuretic peptide B (Bld) [Mass/Vol]56.0 pg/mL<=900.0[facility] HospitalPotassium [Moles/Vol]4.7 mmol/L3.5-5.1FSelect Medical Specialty Hospital - Cincinnati NorthProtein [Mass/Vol]7.4 g/dL6.4-8.2FOhioHealth Dublin Methodist Hospitalodium [Moles/Vol]138 mmol/Z421-569TxdgxyxbgPike Community HospitalUrea nitrogen [Mass/Vol]21.0 mg/dLHigh7.0-18.0[facility] HospitalUrea nitrogen/Creatinine [Mass ratio]25.9 mg/mgPike Community Hospital Laboratory - Hematology and Cell countson 91-47-8751Cypwjkic granulocytes/100 WBC (Bld)0.7 %High0.0-0.5FSelect Medical Specialty Hospital - Cincinnati NorthLaboratory - Microbiology and Antimicrobial susceptibilityon 56-00-0271DGHN-CoV-2 (COVID-19) RNA ARIADNA+probe Ql (Unsp spec)NegativeNEGATIVEPike Community Hospital Comment on above:This test has not [...] nucleated erythrocytes in Blood by Automated counon 94-53-8818CZI corrected for nucl RBC Auto (Bld) [#/Vol]Leukocytes [#/volume] corrected for nucleated erythrocytes in Blood by Automated coun4.0-11.0[facility] Lymphocytes Auto (Bld) [#/Vol]on 38-46-4058Tsaqnypruev (Bld) [#/Vol]Lymphocytes [#/volume] in Blood by Automated count1.2-3.8[facility] Lymphocytes/100 WBC Auto (Bld)on 11-97-0426Kpxwcecyapv/100 WBC (Bld) Lymphocytes/100 leukocytes in Blood by Automated count20.5-60.0[facility] Auto (RBC) [Entitic mass]on 44-27-1765LKT (RBC) [Entitic mass]MCH [Entitic mass] by Automated count26.7-34.0[facility] Auto (RBC) [Mass/Vol]on 02-02-9854AGKQ (RBC) [Mass/Vol]MCHC [Mass/volume] by Automated count29.9-35.2FSelect Medical Specialty Hospital - Cincinnati NorthMCV Auto (RBC) [Entitic vol]on 47-42-3092OLK (RBC) [Entitic vol]MCV [Entitic volume] by Automated count81.0-99.0[facility] HospitalMonocytes Auto (Bld) [#/Vol]on 97-48-0831Joacqizyh (Bld) [#/Vol]Automated blood monocyte count0.3-0.8 [facility] HospitalMonocytes/100 WBC Auto (Bld)on 08-05-2024 Monocytes/100 WBC (Bld)Automated monocyte %1.7-12.0[facility] HospitalNeutrophils Auto (Bld) [#/Vol]on 66-96-5439Yxwhzzgidyj (Bld) [#/Vol] Neutrophils [#/volume] in Blood by Automated count1.4-6.5FSelect Medical Specialty Hospital - Cincinnati NorthNeutrophils/100 WBC Auto (Bld)on 54-25-9726Blubrsnxbwb/100 WBC (Bld)Automated neutrophil %43.0-75.0[facility] HospitalNo Panel Informationon 17-00-6740Qofjdslp I High Sensitivity7.6 pg/mL4.0-51.3FSelect Medical Specialty Hospital - Cincinnati NorthComment on above:CUT-OFF POINTS HAVE BEEN ESTABLISHED BASED [...] DIAGNOSTIC AND CLINICAL INFORMATION.Eosinophils # (Auto)0.5 10 3/uL0.0-0.7FSelect Medical Specialty Hospital - Cincinnati NorthImmature Granulocyte # (Auto)0.07 10 3/uLHigh0.00-0.03[facility] HospitalPlatelet mean volume Auto (Bld) [Entitic vol]on 27-47-2363Lhbirhqx mean volume (Bld) [Entitic vol]Platelet mean volume [Entitic volume] in Blood by Automated count9.5-13.5 [facility] HospitalPlatelets Auto (Bld) [#/Vol]on 08-05-2024 Platelets (Bld) [#/Vol]Platelets [#/volume] in Blood by Automated mivig990-669 [facility] HospitalProthrombin time (PT)on 31-30-6655HE Coag (PPP) [Time]Prothrombin time (PT)9.0-11.6FSelect Medical Specialty Hospital - Cincinnati NorthRBC Auto (Bld) [#/Vol]on 46-77-1266LJR (Bld) [#/Vol]Erythrocytes [#/volume] in Blood by Automated count4.20-5.40[facility] Systemerum or plasma albumin/globulin mass ratioon 41-29-1975Rdrqynq/Globulin [Mass ratio]Serum or plasma albumin/globulin mass ratioMount Carmel Health Systemerum or plasma anion gap determinationon 89-50-3438Omjrb gap [Moles/Vol]Serum or plasma anion gap determinationPike Community HospitalBlood Urea Nitrogenon 04-57-0668Xkzj nitrogen [Mass/Vol]20 mg/dLNormal7-25The [facility] Physician GroupComment on above:Order Comment: STAT FOR CTPerformed By: #### BUN, CREAT #### [place] [address] USACT abdomen pelvis w conon 46-49-1599AZ abdomen pelvis w [facility] [place] [address] [place] [address] CT Scan Report Signed Patient: Canelo Pathak MR#: [id number] 4 : 1965 Acct:[id number] Age/Sex: 58 / F ADM Date: 07/30/24 Loc: CT Room: [facility] Attending Dr: Carol Alegria DO Copies [...] Cameron Worthy M.D.07/30/2024 1:18 PM Dictation Location: [place] [address] Transcribed By: [facility] 07/30/24 1318 Dictated By: Cameorn Worthy MD 07/30/24 1314 Signed By: 07/30/24 1318NoDuke University Hospital Physician GroupCreatinemory [facility] 07-30-2024 Creatinine [Mass/Vol]0.85 mg/dLNormal0.60-1.20The [facility] Comment on above:Order Comment: STAT FOR CTPerformed By: #### BUN, CREAT #### [facility] [address] [place] [address] USAGFR/1.73 sq M.predicted MDRD (S/P/Bld) [Vol rate/Area] mL/min/{1.73_m2}NormalThe [facility] Physician GroupComment on above:Order Comment: STAT FOR CTResult Comment: PERFORMED BY: [place] [address] PATHOLOGIST PROCESS MECHANIC JERRI ROMERO M.D.Performed By: #### BUN, CREAT #### [facility] [address] [place] [address] USACreatinine [Mass/volume] in Serum or PlasmaOrdered By: Carol Alegria on 01-51-3275Lmgkarlbwp [Mass/Vol]Creatinine [Mass/volume] in Serum or Plasma0.60-1.20[facility] HospitalNo Panel InformationOrdered By: Carol Alegria on 67-66-4762Kwnmzxdnt GFR (CKD-EPI)> 60.0 mL/MinPike Community HospitalPharmacy Creatinine Clearance (ChemN/AFSelect Medical Specialty Hospital - Cincinnati NorthUrea nitrogen [Mass/volume] in Serum or PlasmaOrdered By: Carol Alegria on 28-50-4038Wcon nitrogen [Mass/Vol]Urea nitrogen [Mass/volume] in Serum or Plasma7-[facility] HospitalBasophils Auto (Bld) [#/Vol]on 70-54-6329Leyzlrnil (Bld) [#/Vol]0.1 10 3/uL0.0-0.1FSelect Medical Specialty Hospital - Cincinnati NorthBasophils (Bld) [#/Vol]Automated basophil count0.0-0.1FSelect Medical Specialty Hospital - Cincinnati NorthBaphils/100 WBC Auto (Bld)on 68-96-2186Vjxvaxfaj/100 WBC (Bld)0.9 %0.2-2.0[facility] HospitalBasophils/100 WBC (Bld) Automated basophil %0.2-2.0[facility] HospitalCholesterol in LDL Calc [Mass/Vol]on 76-68-3927Zseelplwmhx in LDL [Mass/Vol]87.0 mg/dLPike Community HospitalComment on above:<100 mg/dl AJBTIAD246-466 mg/dl NEAR OR ABOVE CFJZAOZ832-338 mg/dl BORDERLINE AWNF495-659 mg/dl HIGH>190 mg/dl VERY HIGH Cholesterol in LDL [Mass/Vol]Cholesterol in LDL [Mass/volume] in Serum or Plasma by calculationPike Community HospitalComment on above:<100 mg/dl NXCURYP792-575 mg/dl NEAR OR ABOVE TFCFJYM325-311 mg/dl BORDERLINE CWSW511-364 mg/dl HIGH>190 mg/dl VERY HIGHCholesterol in VLDL Calc [Mass/Vol]on 03-20-2024 Cholesterol in VLDL [Mass/Vol]15.0 mg/dLPike Community Hospital Cholesterol in VLDL [Mass/Vol]Cholesterol in VLDL [Mass/volume] in Serum or Plasma by calculationPike Community HospitalEosinophils/100 WBC Auto (Bld)on 85-28-5403Tztczovjtnh/100 WBC (Bld)3.3 %0.9-7.0[facility] HospitalEosinophils/100 WBC (Bld)Automated eosinophil %0.9-7.0[facility] HospitalErythrocyte distribution width Auto (RBC) [Ratio]on 98-70-8255Evuizaiotaw distribution width (RBC) [Ratio]12.4 %11.0-15.0[facility] HospitalErythrocyte distribution width (RBC) [Ratio]Erythrocyte distribution width [Ratio] by Automated count11.0-15.0[facility] HospitalEstimated glomerular filtration rate (GFR) non- Americanon 81-08-3333GAP/1.73 sq M.predicted among non-blacks MDRD (S/P/Bld) [Vol rate/Area]mL/min/{1.73_m2}>=60 mL/min/1.73m 2FSelect Medical Specialty Hospital - [facility] North GFR/1.73 sq M.predicted among non-blacks MDRD (S/P/Bld) [Vol rate/Area]Estimated glomerular filtration rate (GFR) non->=60 mL/min/1.73m 2 [facility] HospitalGlobulin Calc (S) [Mass/Vol]on 03-20-2024 Globulin (S) [Mass/Vol]3.3 g/dLPike Community HospitalGlobulin (S) [Mass/Vol]Serum globulin measurement by calculation (mass/volume)[facility] HospitalGlucose mean value [Mass/volume] in Blood Estimated from glycated hemoglobinon 46-50-7751Nikowol glucose Estimated from glycated hemoglobin (Bld) [Mass/Vol]140 mg/dLPike Community HospitalAverage glucose Estimated from glycated hemoglobin (Bld) [Mass/Vol]Glucose mean value [Mass/volume] in Blood Estimated from glycated hemoglobinPike Community HospitalHematocrit Auto (Bld) [Volume fraction]on 23-33-8404Iksnyyepjx (Bld) [Volume fraction]39.9 %36.0-48.0[facility] Hematocrit (Bld) [Volume fraction]Hematocrit [Volume Fraction] of Blood by Automated count36.0-48.0[facility] HospitalHemoglobin [Mass/volume] in Bloodon 41-87-6284Kqegiosgor (Bld) [Mass/Vol]13.2 g/dL12.0-16.0 [facility] HospitalHemoglobin (Bld) [Mass/Vol]Hemoglobin [Mass/volume] in Blood12.0-16.0[facility] HospitalLaboratory - Chemistry and Chemistry - challengeon 39-81-8016Fglzeuc [Mass/Vol]3.3 g/dLLow 3.4-5.0[facility] HospitalALP [Catalytic activity/Vol]72 U/L46-116 [facility] HospitalALT [Catalytic activity/Vol]22 U/L14-59 [facility] HospitalAST [Catalytic activity/Vol]11 U/YFjx41-10 [facility] HospitalBilirubin [Mass/Vol]0.4 mg/dL0.2-1.0[facility] HospitalCalcium [Mass/Vol]9.0 mg/dL8.5-10.1FSelect Medical Specialty Hospital - Cincinnati NorthChloride [Moles/Vol]105 mmol/X38-801CahythmraPike Community HospitalCholesterol [Mass/Vol]174 mg/dL<=200[facility] Cholesterol in HDL [Mass/Vol]72 mg/rOTikt10-26PoyrloydoPike Community Hospital Comment on above:> or =60 mg/dl - LOW CARDIOVASCULAR RISK<40 mg/dl - HIGH CARDIOVASCULAR RISKCO2 [Moles/Vol]28.6 mmol/L21.0-32.0[facility] HospitalCreatinine [Mass/Vol]0.89 mg/dL0.55-1.02[facility] Free T4 [Mass/Vol]1.53 ng/dLHigh0.76-1.46[facility] GFR/1.73 sq M.predicted MDRD (S/P/Bld) [Vol rate/Area]mL/min/{1.73_m2}>=60 mL/min/1.73m 2FSelect Medical Specialty Hospital - Cincinnati NorthGlucose [Mass/Vol]119 mg/dLHigh 74-106[facility] HospitalPotassium [Moles/Vol]4.1 mmol/L3.5-5.1 [facility] HospitalProtein [Mass/Vol]6.6 g/dL6.4-8.2FOhioHealth Dublin Methodist Hospitalodium [Moles/Vol]143 mmol/N359-982QcuqofegmPike Community HospitalTriglyceride [Mass/Vol]75 mg/dL<=150P[facility] HospitalTSH Qn1.000 m[IU]/L0.358-3.740[facility] HospitalUrea nitrogen [Mass/Vol]18.0 mg/dL7.0-18.0[facility] HospitalUrea nitrogen/Creatinine [Mass ratio]20.2 mg/mgPike Community Hospital Laboratory - Hematology and Cell countson 85-80-0703SzZ7g (Bld) [Mass fraction] 6.5 %High4.5-6.2FSelect Medical Specialty Hospital - Cincinnati NorthComment on above:ADA RECOMMENDED LIMIT 4.0 - 6.0ADA THERAPEUTIC TARGET < 7.0ACTION SUGGESTED> 7.0 Immature granulocytes/100 WBC (Bld)0.2 %0.0-0.5FSelect Medical Specialty Hospital - [facility] North Leukocytes [#/volume] corrected for nucleated erythrocytes in Blood by Automated counon 04-32-3838AHW corrected for nucl RBC Auto (Bld) [#/Vol]8.5 10 3/uL 4.0-11.0[facility] HospitalWBC corrected for nucl RBC Auto (Bld) [#/Vol]Leukocytes [#/volume] corrected for nucleated erythrocytes in Blood by Automated coun4.0-11.0[facility] HospitalLymphocytes Auto (Bld) [#/Vol]on 28-99-2858Bgkinjvxkgy (Bld) [#/Vol]2.3 10 3/uL1.2-3.8[facility] HospitalLymphocytes (Bld) [#/Vol]Lymphocytes [#/volume] in Blood by Automated count1.2-3.8[facility] HospitalLymphocytes/100 WBC Auto (Bld)on 27-53-0904Rbdwpvakptn/100 WBC (Bld)26.5 %20.5-60.0[facility] HospitalLymphocytes/100 WBC (Bld)Lymphocytes/100 leukocytes in Blood by Automated count20.5-60.0[facility] Auto (RBC) [Entitic mass]on 17-68-0650YDF (RBC) [Entitic mass]31.0 pg26.7-34.0[facility] (RBC) [Entitic mass]MCH [Entitic mass] by Automated count26.7-34.0[facility] ([facility]BC) [Mass/Vol]on [id number] (RBC) [Mass/Vol]33.1 g/dL29.9-35.2[facility] (RBC) [Mass/Vol]MCHC [Mass/volume] by Automated count29.9-35.2 [facility] ([facility]BC) [Entitic vol]on 53-90-9577SXC (RBC) [Entitic vol]93.7 fL81.0-99.0[facility] (RBC) [Entitic vol]MCV [Entitic volume] by Automated count81.0-99.0[facility] HospitalMonocytes Auto (Bld) [#/Vol]on 03-15-0902Flzvmctzf (Bld) [#/Vol] 0.6 10 3/uL0.3-0.8[facility] HospitalMonocytes (Bld) [#/Vol] Automated blood monocyte count0.3-0.8[facility] Monocytes/100 WBC Auto (Bld)on 11-84-8240Uvkiieltw/100 WBC (Bld)6.4 %1.7-12.0 [facility] HospitalMonocytes/100 WBC (Bld)Automated monocyte % 1.7-12.0[facility] HospitalNeutrophils Auto (Bld) [#/Vol]on 88-03-9133Nwpehuxwiig (Bld) [#/Vol]5.4 10 3/uL1.4-6.5FSelect Medical Specialty Hospital - Cincinnati NorthNeutrophils (Bld) [#/Vol]Neutrophils [#/volume] in Blood by Automated count1.4-6.5FSelect Medical Specialty Hospital - Cincinnati NorthNeutrophils/100 WBC Auto (Bld)on 64-89-4251Epfuiphtngl/100 WBC (Bld)62.7 %43.0-75.0[facility] HospitalNeutrophils/100 WBC (Bld)Automated neutrophil %43.0-75.0[facility] HospitalNo Panel Informationon 95-40-816152637790-Ngrznxo Vitamin D Total36.0 ng/mLPike Community HospitalComment on above:<20 ng/mL Vit D tpplaafyy32-<30 ng/mL Vit D pcozyhwpwcru86-889 ng/mL Vit D sufficient>100 ng/mL Potential ToxicityEosinophils # (Auto)0.3 10 3/uL0.0-0.7FSelect Medical Specialty Hospital - Cincinnati NorthImmature Granulocyte # (Auto)0.02 10 3/uL0.00-0.03[facility] HospitalTotal Fsitzzjskcpqtour06 ng/hJ05-876WwcutgcrwPike Community HospitalComment on above:Performed at: [facility]coPlayWith [address] [id number] Director: Giuseppe Newell PhD, Phone: [phone] Platelet mean volume Auto (Bld) [Entitic vol]on 05-21-0495Qznkhdfl mean volume (Bld) [Entitic vol]9.5 fL9.5-13.5FSelect Medical Specialty Hospital - Cincinnati NorthPlatelet mean volume (Bld) [Entitic vol]Platelet mean volume [Entitic volume] in Blood by Automated count9.5-13.5FSelect Medical Specialty Hospital - Cincinnati NorthPlatelets Auto (Bld) [#/Vol]on 95-15-1757Zlqsexrbe (Bld) [#/Vol]364 10 3/oE853-569OkcnnosisPike Community HospitalPlatelets (Bld) [#/Vol]Platelets [#/volume] in Blood by Automated -902RubrjodzuPike Community HospitalRBC Auto (Bld) [#/Vol]on 03-20-2024 RBC (Bld) [#/Vol]4.26 10 6/uL4.20-5.40[facility] HospitalRBC (Bld) [#/Vol]Erythrocytes [#/volume] in Blood by Automated count4.20-5.40[facility] Systemerum or plasma albumin/globulin mass ratioon 03-20-2024 Albumin/Globulin [Mass ratio]1.0 {ratio}[facility] Albumin/Globulin [Mass ratio]Serum or plasma albumin/globulin mass ratio [facility] Systemerum or plasma anion gap determinationon 40-35-9371Bndbw gap [Moles/Vol]13.5 mmol/LFSelect Medical Specialty Hospital - Cincinnati NorthAnion gap [Moles/Vol]Serum or plasma anion gap determinationMount Carmel Health Systemerum or plasma total cholesterol/high density lipoprotein (HDL) cholesterol mass constantin 07-49-7687Eaegrwyszax.total/Cholesterol in HDL [Mass ratio]2.4 {ratio}[facility] HospitalComment on above:3.3 - 4.4 LOW RISK4.4 - 7.1 AVERAGE RISK7.1 - 11.0 MODERATE RISK>11.0 HIGH RISK Cholesterol.total/Cholesterol in HDL [Mass ratio]Serum or plasma total cholesterol/high density lipoprotein (HDL) cholesterol mass [facility] HospitalComment on above:3.3 - 4.4 LOW RISK4.4 - 7.1 AVERAGE RISK7.1 - 11.0 MODERATE RISK>11.0 HIGH RISKGastroenterology Office/Clinic Noteon 31-70-2802Mosxolphowmijuql Office/Clinic NoteChief Complaint Followup for abd pain, chest pain, vomiting, diarrhea History of Present Illness Patient presents to GI clinic for a followup for abdominal pain radiating to chest pain, vomiting and diarrhea. KATIANA was 06/26/22 Continues to have persistent acid reflux despite Nexium 40 mg daily. Has anywhere from 5-10 stools per day type on [place] stool scale form, urgent and explosive to [...] water, # 120 tabs, 0 Refill(s), Pharmacy: [facility]/pharmacy #[id number] esomeprazole, 1 caps, Oral, BID, # 180 caps, 0 Refill(s), Pharmacy: [facility]/pharmacy #[id number] ondansetron, 1 tabs, Oral, q8hr, PRN, # 60 tabs, 0 Refill(s), Pharmacy: [facility]/pharmacy #[id number] polyethylene glycol 3350 with electrolytes, See Instructions, for colonoscopy prep, # 4,000 mL, 0 Refill(s), Pharmacy: [facility]/pharmacy #[id number] 1. Diarrhea s/p cholecystectomy - check CBC/CMP/ttg [...] of adequate bowel prep and need for backhaul driver to accompany day of procedure, verbalizes [...] Ongoing Asthma Endometriosis Fibromyalg (more content not included)...[facility]XR [facility] BI 4V adulton 66-98-1221JV hips BI 4V [facility] Main [address] [address] XRay Report Signed Patient: Canelo Pathak MR#: [id number] 4 : 1965 Acct:[id number] Age/Sex: 58 / F ADM Date: 12/05/23 Loc: XD Room: Type: [facility] CLI Attending Dr: Logan Brown MD Copies [...] Omid Seals M.D.12/05/2023 5:09 PM Dictation Location: [place] [address] Transcribed By: [facility] 12/05/231708 Dictated By: Omid Seals DO 12/05/231707 Signed By: 12/05/23 1709[facility] Physician GroupXR lumbar spine AP/LAT/FLX/EXTon 67-70-6235EM lumbar spine AP/LAT/FLX/EXTMARY [facility] Main [place] [address] [place] [address] XRay Report Signed Patient: Canelo Pathak MR#: [id number] 4 : 1965 Acct:[id number] Age/Sex: 58 / F ADM Date: 12/05/23 Loc: XD Room: Type: [facility] CLI Attending Dr: Logan Brown MD Copies [...] Omid Seals M.D.12/05/2023 5:08 PM Dictation Location: [facility] Transcribed By: [facility] 12/05/231707 Dictated By: Omid Seals DO 12/05/231705 Signed By: 12/05/231707[facility] Physician GroupEstimated glomerular filtration rate (GFR) non- Americanon 98-15-5963QTN/1.73 sq M.predicted among non- blacks MDRD (S/P/Bld) [Vol rate/Area]mL/min/{1.73_m2}>=60[facility] HospitalLaboratory - Chemistry and Chemistry - challengeon 10-25-2023 Calcium [Mass/Vol]9.3 mg/dL8.5-10.1FSelect Medical Specialty Hospital - Cincinnati NorthChloride [Moles/Vol]103 mmol/R12-042SytwoxinrPike Community HospitalCO2 [Moles/Vol]29.7 mmol/L21.0-32.0[facility] HospitalCreatinine [Mass/Vol]0.88 mg/dL 0.55-1.02[facility] HospitalFree T4 [Mass/Vol]1.33 ng/dL0.76-1.46 [facility] HospitalGFR/1.73 sq M.predicted MDRD (S/P/Bld) [Vol rate/Area]mL/min/{1.73_m2}>=60[facility] HospitalGlucose [Mass/Vol]121 mg/hBVgkk98-948IvrmoluytPike Community HospitalPotassium [Moles/Vol]4.4 mmol/L3.5-5.1FOhioHealth Dublin Methodist Hospitalodium [Moles/Vol] 140 mmol/M248-838HxyainrdoPike Community HospitalTSH Qn5.994 m[IU]/LHigh 0.358-3.740[facility] HospitalUrea nitrogen [Mass/Vol]18.0 mg/dL 7.0-18.0[facility] HospitalUrea nitrogen/Creatinine [Mass ratio] 20.5 mg/mgPike Community HospitalNo Panel Informationon 10-25-2023 Total Nsjtdfstlecuflmf768 ng/gD51-423SslvhmskePike Community HospitalComment on above:Performed at: [facility] Lab[address] [id number] Director: Giuseppe Newell PhD, Phone: [phone] or plasma anion gap determinationon 79-56-0691Ysfap gap [Moles/Vol]11.7 mmol/LFSelect Medical Specialty Hospital - Cincinnati NorthPatient Correspondenceon 54-06-3766Mgmzvbe Correspondence [id number]#1.00TIFFOhioHealth Mansfield HospitalMRI HEAD/BRAIN WO/W CONTRon 72-17-7219[place] [address] Magnetic Resonance Report Signed Patient: CANELO PATHAK MR#: [id number] : 1965 Acct:[id number] Age/Sex: 58 / F ADM Date: 10/09/23 Loc: MRI Attending Dr: Jennie Jiang M.D. Ordering Physician: Jennie Jiang M.D. Date of Service: 10/09/23 Procedure(s): MR head/brain wo/w con Accession Number(s): [id number] cc: JEFF JON ; Jennie Jiang M.D. [address] [place] [address] Patient Name: CANELO PATHAK MRN: [id number] date: 1965 Sex: F Assigned Patient Location: MRI Current Patient Location: MRI Accession/Order Number: [id number] Exam Date: 10/09/2023 12:50 Report Date: 10/09/2023 [...] M.D. Signed By: 10/09/232117 DD/ 14 TD/TT: Baton Twirler:TBHRadiology, Radiologist, - 10/09/2023 [place] [address] Magnetic Resonance Report Signed Patient: CANELO PATHAK MR#: [id number] : 1965 Acct:[id number] Age/Sex: 58 / F ADM Date: 10/09/23 Loc: MRI Attending Dr: Jennie Jiang M.D. Ordering Physician: Jennie Jiang M.D. Date of Service: 10/09/23 Procedure(s): MR head/brain wo/w con Accession Number(s): [id number] cc: JEFF JON ; Jennie Jiang M.D. The [place] [id number] Patient Name: CANELO PATHAK MRN: [id number] date: 1965 Sex: F Assigned Patient Location: MRI Current Patient Location: MRI Accession/Order Number: [id number] Exam Date: 10/09/2023 12:50 Report Date: 10/09/2023 [...] M.D. Signed By: 10/09/232117 DD/ 14 TD/TT: Baton Twirler: SIGIFREDO HealthcareRadiology Study observation (narrative)[facility] HospitalMRI HEAD/BRAIN WO/W CONTROrdered By: Radiologist Radiology on 89-45-8030YIUR [employer] Work Phone: ct Internal auditory canal W contrast Marci 09-04-[address] [address] [address] Scan Report Signed Patient: CANELO PATHAK MR#: [id number] : 1965 Acct:[id number] Age/Sex: 57 / F ADM Date: 09/04/23 Loc: CT Attending Dr: Jennie Jiang M.D. Ordering Physician: Jennie Jiang M.D. Date of Service: 09/04/23 Procedure(s): CT int auditory canals w con Accession Number(s): [id number] cc: JEFF JON [place] [address] [place] [id number] Patient Name: CANELO PATHAK MRN: [facility]:[id number] date: 1965 Sex: F Assigned Patient Location: CT Current Patient Location: CT Accession/Order Number: [id number] Exam Date: 09/04/2023 13:20 Report Date: 09/04/2023 [...] M.D. Signed By: 09/04/231653 DD/ 51 TD/TT: Baton Twirler:MELISAHRadiology, Radiologist, - 09/04/2023 [place] [address] CT Scan Report Signed Patient: CANELO PATHAK MR#: [id number] : 1965 Acct:[id number] Age/Sex: 57 / F ADM Date: 09/04/23 Loc: CT Attending Dr: Jennie Jiang M.D. Ordering Physician: Jennie Jiang M.D. Date of Service: 09/04/23 Procedure(s): CT int auditory canals w con Accession Number(s): [id number] cc: JEFF JON [place] [address] Patient Name: CANELO PATHAK MRN: [id number] date: 1965 Sex: F Assigned Patient Location: CT Current Patient Location: CT Accession/Order Number: [id number] Exam Date: 09/04/2023 13:20 Report Date: 09/04/2023 [...] M.D. Signed By: 09/04/231653 DD/ 51 TD/TT: Baton Twirler: SIGIFREDO HealthcareRadiology Study observation (narrative)[facility]OMS HealthcareCT Internal auditory canal W contrast IVOrdered By: Radiologist Radiology on 75-06-1491QWFP [employer] Work Phone: automated epithelial cells count in urine sediment (number/area)on 31-97-1972Kxbtzajjpy cells Auto (Urine sed) [#/Area]RARE #/LPF NONE/RAREPike Community HospitalAutomated leukocytes count in urine sediment (number/area)on 60-17-8770VHX Auto (Urine sed) [#/Area]0-2 #/HPF0-2 [facility] HospitalAutomated urine specific gravity by refractometryon 88-62-8183Gudfcfge gravity Refractometry automated (U) [Rel density]>=1.0301.005-1.025P[facility] HospitalBasophils Auto (Bld) [#/Vol]on 62-32-7829Gwplanjju (Bld) [#/Vol]0.1 10 3/uL0.0-0.1FSelect Medical Specialty Hospital - Cincinnati NorthBasophils/100 WBC Auto (Bld)on 40-45-2880Dehhhball/100 WBC (Bld) 1.4 %0.2-2.0[facility] HospitalBilirubin Auto test strip (U) [Mass/Vol]on 68-84-2579Uzxonnwop (U) [Mass/Vol]NegativeNEGATIVEPike Community HospitalCast typing in urine sediment by light microscopyon 20-86-1866Ljddr LM Nom (Urine sed)NONE SEEN #/LPFNONE SEENPike Community HospitalCholesterol in LDL Calc [Mass/Vol]on 58-38-7937Jcpedvbyfni in LDL [Mass/Vol]101.0 mg/dLPike Community HospitalComment on above:<100 mg/dl LQLSCMB276-637 mg/dl NEAR OR ABOVE MISZLYQ280-545 mg/dl BORDERLINE ZPEH568-474 mg/dl HIGH>190 mg/dl VERY HIGHCholesterol in VLDL Calc [Mass/Vol]on 23-58-2509Qzbosjmlbok in VLDL [Mass/Vol]25.0 mg/dLPike Community HospitalColor Auto (U)on 54-81-0808Npusn (U)YELLOWYELLOWPike Community HospitalEosinophils/100 WBC Auto (Bld)on 18-19-6566Jabmswhosfp/100 WBC (Bld)5.2 % 0.9-7.0[facility] HospitalErythrocyte distribution width Auto (RBC) [Ratio]on 04-98-2863Xpfwvuipzut distribution width (RBC) [Ratio]12.1 % 11.0-15.0[facility] HospitalEstimated glomerular filtration rate (GFR) non- Americanon 36-60-0339BWA/1.73 sq M.predicted among non-blacks MDRD (S/P/Bld) [Vol rate/Area]mL/min/{1.73_m2}>=60P[facility] HospitalGlobulin Calc (S) [Mass/Vol]on 58-28-0411Innqadgl (S) [Mass/Vol]3.3 g/dL [facility] HospitalGlucose mean value [Mass/volume] in Blood Estimated from glycated hemoglobinon 88-07-5907Rgdlniy glucose Estimated from glycated hemoglobin (Bld) [Mass/Vol]143 mg/dLPike Community Hospital Hematocrit Auto (Bld) [Volume fraction]on 72-02-6068Biizvpiqtm (Bld) [Volume fraction]41.2 %36.0-48.0[facility] HospitalHemoglobin [Mass/volume] in Bloodon 64-91-2675Dkpxjsnkfh (Bld) [Mass/Vol]13.6 g/dL12.0-16.0 [facility] HospitalKetones Auto test strip (U) [Mass/Vol]on 71-32-8726Kklfxtq (U) [Mass/Vol]NegativeNEGATIVEPike Community HospitalLaboratory - Chemistry and Chemistry - challengeon 37-43-3283Awdswqt [Mass/Vol]3.8 g/dL3.4-5.0[facility] HospitalALP [Catalytic activity/Vol]72 U/M88-721TwxpgqxnfPike Community HospitalALT [Catalytic activity/Vol]25 U/S64-04UfblkhmytPike Community HospitalAST [Catalytic activity/Vol]14 U/R25-27MjjkrnzrhPike Community HospitalBilirubin [Mass/Vol]0.5 mg/dL0.2-1.0[facility] HospitalCalcium [Mass/Vol]9.1 mg/dL 8.5-10.1FSelect Medical Specialty Hospital - Cincinnati NorthChloride [Moles/Vol]103 mmol/L98-107 [facility] HospitalCholesterol [Mass/Vol]193 mg/dL<=200P[facility] HospitalCholesterol in HDL [Mass/Vol]67 mg/eV98-11DlmuhkibuPike Community HospitalComment on above:> or =60 mg/dl - LOW CARDIOVASCULAR RISK<40 mg/dl - HIGH CARDIOVASCULAR RISKCO2 [Moles/Vol]28.7 mmol/L21.0-32.0 [facility] HospitalCreatinine [Mass/Vol]0.77 mg/dL0.55-1.02 [facility] HospitalFree T4 [Mass/Vol]1.11 ng/dL0.76-1.46[facility] HospitalGFR/1.73 sq M.predicted MDRD (S/P/Bld) [Vol rate/Area] mL/min/{1.73_m2}>=60[facility] HospitalGlucose [Mass/Vol]117 mg/dL 74-106P[facility] HospitalPotassium [Moles/Vol]4.2 mmol/L3.5-5.1 [facility] HospitalProtein [Mass/Vol]7.1 g/dL6.4-8.2FOhioHealth Dublin Methodist Hospitalodium [Moles/Vol]142 mmol/O253-987FkjvyqjkzPike Community HospitalTriglyceride [Mass/Vol]125 mg/dL<=150P[facility] HospitalTSH Qn18.751 m[IU]/L0.358-3.740[facility] HospitalUrea nitrogen [Mass/Vol]19.0 mg/dL7.0-18.0[facility] HospitalUrea nitrogen/Creatinine [Mass ratio]24.7 mg/mgPike Community Hospital Laboratory - Hematology and Cell countson 90-85-4383NeK6e (Bld) [Mass fraction] 6.6 %4.5-6.2FSelect Medical Specialty Hospital - Cincinnati NorthComment on above:ADA RECOMMENDED LIMIT 4.0 - 6.0ADA THERAPEUTIC TARGET < 7.0ACTION SUGGESTED> 7.0Immature granulocytes/100 WBC (Bld)0.3 %0.0-0.5FSelect Medical Specialty Hospital - Cincinnati North Leukocytes [#/volume] corrected for nucleated erythrocytes in Blood by Automated counon 81-48-9837UEB corrected for nucl RBC Auto (Bld) [#/Vol]7.4 10 3/uL 4.0-11.0[facility] HospitalLymphocytes Auto (Bld) [#/Vol]on 21-19-1317Dnmmnzfnzar (Bld) [#/Vol]2.2 10 3/uL1.2-3.8[facility] HospitalLymphocytes/100 WBC Auto (Bld)on 36-05-5280Hwcbycmxobw/100 WBC (Bld)29.7 % 20.5-60.0[facility] Shelby HospitalH Auto (RBC) [Entitic mass]on 85-31-8381ZZW (RBC) [Entitic mass]31.3 pg26.7-34.0[facility] HospitalMCHC Auto (RBC) [Mass/Vol]on 08-11-8406QGHV (RBC) [Mass/Vol]33.0 g/dL 29.9-35.2FSelect Medical Specialty Hospital - Cincinnati NorthMCV Auto (RBC) [Entitic vol]on 87-14-9652KDA (RBC) [Entitic vol]94.7 fL81.0-99.0[facility] HospitalMonocytes Auto (Bld) [#/Vol]on 83-92-9249Gjvpvcmcy (Bld) [#/Vol]0.5 10 3/uL0.3-0.8[facility] HospitalMonocytes/100 WBC Auto (Bld)on 09-96-2335Xrnzeozsn/100 WBC (Bld)6.4 %1.7-12.0[facility] Mucus LM Ql (Urine sed)on 84-74-6039Xklda Ql (Urine sed)MODERATENONE SEEN [facility] HospitalNeutrophils Auto (Bld) [#/Vol]on 08-23-2023 Neutrophils (Bld) [#/Vol]4.2 10 3/uL1.4-6.5FSelect Medical Specialty Hospital - [facility] North Neutrophils/100 WBC Auto (Bld)on 56-07-4017Jxqlrhwylwy/100 WBC (Bld)57.0 % 43.0-75.0[facility] HospitalNo Panel Informationon - Hydroxy Vitamin D Total35.2 ng/mLPike Community HospitalComment on above:<20 ng/mL Vit D mervrddbv97-<30 ng/mL Vit D qjaakwewvwik39-144 ng/mL Vit D sufficient>100 ng/mL Potential ToxicityEosinophils # (Auto)0.4 10 3/uL0.0-0.7 [facility] HospitalFree Triiodothyronine1.94 pg/mL2.18-3.98 [facility] HospitalImmature Granulocyte # (Auto)0.02 10 3/uL 0.00-0.03[facility] HospitalPlatelet mean volume Auto (Bld) [Entitic vol]on 58-66-2003Bzltabal mean volume (Bld) [Entitic vol]9.7 fL9.5-13.5 [facility] HospitalPlatelets Auto (Bld) [#/Vol]on 08-23-2023 Platelets (Bld) [#/Vol]347 10 3/qY742-297LdfvpomsnPike Community Hospital Protein Auto test strip (U) [Mass/Vol]on 74-38-1624Tpwqywv (U) [Mass/Vol] NegativeNEG/TRACEPike Community HospitalRBC Auto (Bld) [#/Vol]on 69-71-4196LBL (Bld) [#/Vol]4.35 10 6/uL4.20-5.40[facility] Health Systemerum or plasma albumin/globulin mass ratioon 91-28-4042Qzrjdlm/Globulin [Mass ratio]1.2 {ratio}[facility] Systemerum or plasma anion gap determinationon 21-58-8691Qzcpq gap [Moles/Vol]14.5 mmol/LFOhioHealth Dublin Methodist Hospitalerum or plasma total cholesterol/high density lipoprotein (HDL) cholesterol mass constantin 42-41-1234Pjyocwlvosf.total/Cholesterol in HDL [Mass ratio]2.9 {ratio}[facility] HospitalComment on above:3.3 - 4.4 LOW RISK4.4 - 7.1 AVERAGE RISK7.1 - 11.0 MODERATE RISK>11.0 HIGH RISKSpecific gravity Auto test strip (U) [Rel density]on 47-35-4346Pbstqgra gravity (U) [Rel density]CLEARCLEMercy Health Tiffin HospitalUrine bacteria detection by automated methodon 32-47-5812Nmshznzx Auto Ql (U)NONE SEEN #/HPFNONE [facility] Medical CenterUrine glucose measurement by test strip (mass/volume)on 54-82-5728Mhbkoor Test strip (U) [Mass/Vol]NegativeNEGATIVE [facility] HospitalUrine hemoglobin detection by automated test stripon 34-20-8660Idcoevdehj Auto test strip Ql (U)NegativeNEGKeenan Private HospitalUrine nitrite detection by automated test stripon 64-88-0272Gmkjbrp Auto test strip Ql (U)NegativeNEGKeenan Private HospitalUrine sediment crystal identification by light microscopyon 17-14-0187Uyetcraj LM Nom (Urine sed)None Seen #/HPFNone [facility] HospitalUrine sediment leukocyte count by microscopy (number/high power field)on 93-16-3754YHK LM.HPF (Urine sed) [#/Area]0-2 #/HPFNONE [facility]mount HospitalUrobilinogen Auto test strip (U) [Mass/Vol]on 08-23-2023 Urobilinogen Qn (U)0.2 {David'U}/dL0.2-1.0[facility] HospitalpH Auto test strip (U)on 79-76-5905hC (U)5.5 [pH]5.0-9.0[facility] HospitalPatient Correspondenceon 16-88-8855Oqrbzop Correspondence [id number]#1.00PORT ORCHARDLuchoAtrium Health Mountain Islandkirby Johns Hopkins HospitalInsurance Correspondence Officeon 10-76-4426Giblwfhbk Correspondence [id number]#1.00TIFSt. Francis HospitalConsent for Treatmenton 78-25-1573Fhryqdl for Treatment [id number]#1.00TIFSt. Francis HospitalConsultation Noteon 30-56-8480Dafssxvcoosi NotePatient: CANELO PATHAK Age: 57 years Sex: [...] She has tried conservative measures inclusive of dcgk-xyb-ztsyjwf medications and prescription medications inclusive of meloxicam, [...] Histories Past Medical History: Active Acid reflux (649240748) Asthma (271015829) Hypothyroid (125770519) Family History: No family history items have been selected or recorded. Procedure history: Myringotomy and insertion of T tube (838786206). Comments: 02/22/2011 10:22 TINOT - Trixie HART, [place] x2 Tonsillectomy (432907426). Cholecystectomy (13382795). Laparoscopy (400239622). Abdominal hysterectomy (630090488). Physical Examination Vital Signs (last 24 hrs) [...] patient, who voiced (more content not included)...[facility] HospitalComment on above:Result Comment: Electronically Signed By: Casper Nguyen DO.kaylan\Date and Time Signed: 05/10/23 15:07 ESTHIPAA Forms Officeon 25-97-5775AYJNM Forms [id number]#1.00TIFFOhioHealth Mansfield HospitalLegal Correspondence Officeon 85-13-0440Tvkdb Correspondence [id number]#1.00TIFSt. Francis HospitalLegal Correspondence Office [id number]#1.00TIFSt. Francis HospitalOffice/Clinic Note-Physicianon 18-49-3604Fyjnih/Clinic Note-Physician [id number]#1.00TIFSt. Francis HospitalPatient Correspondenceon 96-35-9291Ymheyxl Correspondence [id number]#1.00[facility] CenterPatient [id number]#1.00TIFF [facility] HospitalPatient Correspondence [id number]#1.00TIFSt. Francis HospitalPatient [id number]#1.00TIFF [facility] HospitalPatient Correspondence [id number]#1.00[facility] CenterPatient History Officeon 33-96-6255Ojyyplx History Office [id number]#1.00[facility] Medical CenterOutside Records Officeon 83-39-7851Tuuwnjv Records Office [id number]#1.00[facility] CenterRadiology Outside Office Copyon 91-24-6622Wzruosyph Outside Office Copy [id number]#1.00[facility] CenterReferrals Officeon 96-07-0443Qhbihqwoo Office [id number]#1.00[facility] CenterMR LUMBAR SPINE WO CONTRASTon 69-54-1355GK LUMBAR SPINE WO CONTRASTEXAM: MRI Lumbar Spine [...] Type 2 Possible Transdermal patchCBC AUTO DIFFon 24-76-4899PNLZ #0.1 103/ulNormal 0.0-0.1[facility] HospitalComment on above:Performed By: #### FT3, CMP, LIPID, TSH #### [facility] [address] [place] [address] [address] Gin Xiesophils/100 WBC (Bld)0.9 %Normal0.2-2.0[facility] Comment on above:Performed By: #### FT3, CMP, LIPID, TSH #### [facility] [address] [place] [address] [address] Gin Carlton #0.5 103/ulNormal0.0-0.7The [facility] Medical CenterComment on above: Performed By: #### FT3, CMP, LIPID, TSH #### [facility] [address] [place] [address] [address] Gin Reganosinophils/100 WBC (Bld)5.8 %Normal0.9-7.0[facility] Comment on above:Performed By: #### FT3, CMP, LIPID, TSH #### [facility] [address] [place] [address] [address] Gin Reganrythrocyte distribution width (RBC) [Ratio]13.0 %Wlornc12.0-15.0 [facility] Medical CenterComment on above:Performed By: #### FT3, CMP, LIPID, TSH #### [facility] [address] [place] [address] Dr. Gin ChewHematocrit (Bld) [Volume fraction]39.7 %Ozfpir57.0-48.0[facility] Medical CenterComment on above:Performed By: #### FT3, CMP, LIPID, TSH #### [facility] [address] [place] [address] Dr. Gin ChewHemoglobin (Bld) [Mass/Vol]13.2 g/dWOhiblr49.0-16.0The [facility] CenterComment on above:Performed By: #### FT3, CMP, LIPID, TSH #### [facility] [address] [place] [address] Dr. Gin Harris #0.05 10e3/ulCritically high0.00-0.03The [facility] Comment on above:Performed By: #### FT3, CMP, LIPID, TSH #### [facility] [address] [place] [address] Dr. Gin Harris %0.6 %Critically high0.0-0.5The [facility] CenterComment on above:Performed By: #### FT3, CMP, LIPID, TSH #### [facility] [address] [place] [address] Dr. Gin MckeonMPH #2.1 103/ulNormal1.2-3.8The [facility] CenterComment on above:Performed By: #### FT3, CMP, LIPID, TSH #### [facility] [address] [place] [address] Dr. Gin Mckeonmphocytes/100 WBC (Bld)27.4 %Qshggp63.5-60.0The [facility] CenterComment on above:Performed By: #### FT3, CMP, LIPID, TSH #### [facility] [address] [place] [address] Dr. Gin JangUAL DIFF REQNONormalThe [facility] CenterComment on above: Performed By: #### FT3, CMP, LIPID, TSH #### [facility] [address] [place] [address] Dr. Gin Love (RBC) [Entitic mass]30.9 yhSkabbp29.7-34.0The [facility] CenterComment on above:Performed By: #### FT3, CMP, LIPID, TSH #### [facility] [address] [place] [address] Dr. Gin Love (RBC) [Mass/Vol]33.2 g/gTUnozxs94.9-35.2The [facility] CenterComment on above:Performed By: #### FT3, CMP, LIPID, TSH #### [facility] [address] [place] [address] Dr. Gin Love (RBC) [Entitic vol]93.0 bDQlpxuj84.0-99.0The [facility] CenterComment on above:Performed By: #### FT3, CMP, LIPID, TSH #### [facility] [address] [place] [address] Dr. Gin Reyes #0.6 103/ulNormal0.3-0.8The [facility] CenterComment on above:Performed By: #### FT3, CMP, LIPID, TSH #### [facility] [address] [place] [address] Dr. Gin Mathiasocytes/100 WBC (Bld)7.1 %Normal1.7-12.0The [facility] Comment on above:Performed By: #### FT3, CMP, LIPID, TSH #### [facility] [address] [place] [address] Dr. Gin Romero #4.5 103/ulNormal1.4-6.5The [facility] CenterComment on above:Performed By: #### FT3, CMP, LIPID, TSH #### [facility] [address] [place] [address] Dr. Gin Boutrophils/100 WBC (Bld)58.2 %Plcozf21.0-75.0The [facility] CenterComment on above:Performed By: #### FT3, CMP, LIPID, TSH #### [facility] [address] [place] [address] Dr. Gin ChewPlatelet mean volume (Bld) [Entitic vol]9.7 fLNormal9.5-13.5The [facility] CenterComment on above:Performed By: #### FT3, CMP, LIPID, TSH #### [facility] [address] [place] [address] Dr. Gin ChewPLT339 103/xqHqdpao930-757Sgl [facility] CenterComment on above: Performed By: #### FT3, CMP, LIPID, TSH #### [facility] [address] [place] [address] Dr. Gin ChewRBC4.27 106/ulNormal4.20-5.40The [facility] Centerment on above:Performed By: #### FT3, CMP, LIPID, TSH #### [facility] [address] [place] [address] Dr. Gin ChewWBC7.7 103/ulNormal4.0-11.0The [facility] CenterComment on above: Performed By: #### FT3, CMP, LIPID, TSH #### [facility] [address] [place] [address] Dr. Gin ChewPROToshia CHEM 8 (BAS METB)on 98-56-5586Tiahx gap [Moles/Vol]9.4 mmol/LNormalThe [facility] CenterComment on above:Performed By: #### FT3, CMP, LIPID, TSH #### [facility] [address] [address] [address] Gin ChewCalcium [Mass/Vol]9.1 mg/dLNormal8.5-10.1The [facility] Comment on above:Performed By: #### FT3, CMP, LIPID, TSH #### [facility] [address] [place] [address] Dr. Gin ChewChloride [Moles/Vol]104 mmol/WXkmgqr36-160Azs [facility] Comment on above:Performed By: #### FT3, CMP, LIPID, TSH #### [facility] [address] [place] [address] Dr. Gin ChewCO2 [Moles/Vol]31.7 mmol/GVgyslh93.0-32.0The [facility] Comment on above:Performed By: #### FT3, CMP, LIPID, TSH #### [facility] [address] [place] [address] Dr. Gin ChewCreatinine [Mass/Vol]0.77 mg/dLNormal0.55-1.02The [facility] CenterComment on above:Performed By: #### FT3, CMP, LIPID, TSH #### [facility] [address] [place] [address] Dr. Gin ReganGFR-AF SINGAPOREAN>60Normal>=60The [facility] CenterComment on above:Performed By: #### FT3, CMP, LIPID, TSH #### [facility] [address] [place] [address] Dr. Gin ReganGFR-NON AF SINGAPOREAN>60Normal>=60The [facility] CenterComment on above:Performed By: #### FT3, CMP, LIPID, TSH #### [facility] [address] [place] [address] Dr. Gin ChewGlucose [Mass/Vol]143 mg/dLCritically gtdo59-449Gnn [facility] CenterComment on above:Performed By: #### FT3, CMP, LIPID, TSH #### [facility] [address] [place] [address] Dr. Gin ChewPotassium [Moles/Vol]4.1 mmol/LNormal3.5-5.1[facility] Comment on above:Performed By: #### FT3, CMP, LIPID, TSH #### [facility] [address] [address] [address] Gin ChewSodium [Moles/Vol]141 mmol/DLxcrhc503-206Gvs [facility] Comment on above:Performed By: #### FT3, CMP, LIPID, TSH #### [facility] [address] [address] [address] Gin ChewUrea nitrogen [Mass/Vol]19.0 mg/dLCritically high7.0-18.0The [facility] CenterComment on above:Performed By: #### FT3, CMP, LIPID, TSH #### [facility] [address] [address] [address] Gin Bennett nitrogen/Creatinine [Mass ratio]24.7 mg/mgNoMartin Memorial HospitalComment on above:Performed By: #### FT3, CMP, LIPID, TSH #### [facility] [address] [place] [address] Dr. Gin ChewXR CHEST 2 Von [id number] CHEST 2 VEXAM: XR CHEST 2 V [...] Electronically authenticated by: DURGA DENNIS Date: 2022-09-08 15:53[facility] W MANUAL DIFFon [id number]+NormalThe [facility] CenterComment on above:Performed By: #### CBCMAN #### [facility] [address] [address] [address] Gin Mendez LYMPH #NormalThe [facility] HospitalComment on above: Performed By: #### VICKIE #### [facility] [address] [address] [address] Gin BatresICAL LYMPH %NormalThe [facility] HospitalComment on above: Performed By: #### VICKIE #### [facility] [address] [address] [address] Gin Cameron #0.6 103/ulCritically high0.0-0.3The [facility] on above:Performed By: #### VICKIE #### [facility] [address] [address] [address] Gin Cameron %4 %Normal0-5The [facility] CenterComment on above:Performed By: #### VICKIE #### [facility] [address] [place] [address] Dr. Gin Persaud #0.00 103/ulNormal0.00-0.10The [facility] CenterComment on above:Performed By: #### VICKIE #### [facility] [address] [address] [address] Gin Persaud %0.0 %Critically low0.2-2.0The [facility] CenterComment on above:Performed By: #### VICKIE #### [facility] [address] [address] [address] Gin Carl #NormalThe [facility] HospitalComment on above:Performed By: #### VICKIE #### [facility] [address] [place] [address] Dr. Gin Carl %NormalThe [facility] CenterComment on above:Performed By: #### VICKIE #### [facility] [address] [place] [address] Dr. Gin ChewCORRECTED WBCNormal4.0-11.0The [facility] CenterComment on above: Performed By: #### CBCDORIS #### [facility] [address] [place] [address] Dr. Gin Martinez #0.45 103/ulNormal0.00-0.70The [facility] CenterComment on above:Performed By: #### VICKIE #### [facility] [address] [place] [address] Dr. Gin Martinez%3.0 %Normal0.9-7.0The [facility] CenterComment on above: Performed By: #### VICKIE #### [facility] [address] [place] [address] Dr. Gin BurnettT43.1 %Evwjvh95.0-48.0The [facility] CenterComment on above: Performed By: #### VICKIE #### [facility] [address] [place] [address] Dr. Gin ChewHGB14.4 g/afHqufvf01.0-16.0The [facility] CenterComment on above: Performed By: #### VICKIE #### [facility] [address] [place] [address] Dr. Gin Prieto #3.93 103/ulCritically high1.20-3.80The [facility] Comment on above:Performed By: #### VICKIE #### [facility] [address] [place] [address] Dr. Gin Prieto%26.0 %Kqncen48.5-60.0The [facility] CenterComment on above:Performed By: #### VICKIE #### [facility] [address] [place] [address] Dr. Gin ChewMCH31.0 myYkbgac82.7-34.0The [facility] CenterComment on above: Performed By: #### VICKIE #### [facility] [address] [place] [address] Dr. Gin LoveHC33.4 g/lmMvvmfr32.9-35.2The [facility] CenterComment on above:Performed By: #### VICKIE #### [facility] [address] [place] [address] Dr. Gin LoveV92.7 ePUbkuut49.0-99.0[facility] Centerment on above: Performed By: #### VICKIE #### [facility] [address] [address] [address] Gin BlanchardOCYTE #NormalMercy Health – The Jewish HospitalComment on above: Performed By: #### VICKIE #### [facility] [address] [address] [address] Gin BlanchardOCYTE %NormalMercy Health – The Jewish HospitalComment on above: Performed By: #### VICKIE #### [facility] [address] [address] [address] Gin Oconnell#1.06 103/ulCritically high0.30-0.80The [facility] on above:Performed By: #### VICKIE #### [facility] [address] [place] [address] Dr. Gin Oconnell%7.0 %Normal1.7-12.0The [facility] CenterComment on above: Performed By: #### VICKIE #### [facility] [address] [place] [address] Dr. Gin ChewMPV9.7 fLNormal9.5-13.5The [facility] CenterComveterans affairs medical center on above: Performed By: #### VICKIE #### [facility] [address] [place] [address] Dr. Gin Saleem #NormalMercy Health – The Jewish HospitalComment on above:Performed By: #### VICKIE #### [facility] [address] [place] [address] Dr. Gin Saleem %NormalMercy Health – The Jewish HospitalComveterans affairs medical center on above:Performed By: #### VICKIE #### [facility] [address] [place] [address] Dr. Gin ChewNRQUINNormalThGood Samaritan HospitalComveterans affairs medical center on above:Performed By: #### VICKIE #### [facility] [address] [place] [address] Dr. Gin ChewPLT372 103/jyLisfsj540-146Gux [facility] HospitalComment on above: Performed By: #### CBCMAN #### [facility] [address] [address] [address] Gin ChewRBC4.65 106/ulNormal4.20-5.40The [facility] CenterComment on above:Performed By: #### CBCMAN #### [facility] [address] [address] [address] Gin ChewRDW13.0 %Golyvw50.0-15.0The [facility] CenterComment on above: Performed By: #### CBCMAN #### [facility] [address] [address] [address] Gin Redding #9.06 103/ulCritically high1.40-6.50The [facility] Comment on above:Performed By: #### CBCMAN #### [facility] [address] [place] [address] Dr. Gin Redding %60.0 %Cozxxc00.0-75.0The [facility] CenterComment on above: Performed By: #### CBCMAN #### [facility] [address] [place] [address] Dr. Gin ChewWBC15.1 103/ulCritically high4.0-11.0The [facility] CenterComment on above:Performed By: #### CBCMAN #### [facility] [address] [place] [address] Dr. Gin ChewLACTATE/LACTIC ACIDon [id number] [Moles/Vol]1.2 mmol/L Normal0.4-2.0The [facility] CenterComment on above:Performed By: #### BMP #### [facility] [address] [place] [address] Dr. Gin ChewPROF CHEM 8 (BAS METB)on 78-17-9856Xlasp gap [Moles/Vol]11.4 mmol/LNormalThe [facility] CenterComment on above:Performed By: #### A1C #### [facility] [address] [place] [address] Dr. Gin ChewCalcium [Mass/Vol]9.2 mg/dLNormal8.5-10.1[facility] Comment on above:Performed By: #### A1C #### [facility] [address] [address] [address] Gin ChewChloride [Moles/Vol]102 mmol/JTqpjsw95-470Qnh [facility] Comment on above:Performed By: #### A1C #### [facility] [address] [address] [address] Gin ChewCO2 [Moles/Vol]31.3 mmol/GXninyu51.0-32.0The [facility] Comment on above:Performed By: #### A1C #### [facility] [address] [place] [address] Dr. Gin ChewCreatinine [Mass/Vol]0.86 mg/dLNormal0.55-1.02[facility] HospitalComment on above:Performed By: #### A1C #### [facility] [address] [place] [address] Dr. Gin ReganGFR-AF SINGAPOREAN>60Normal>=60The [facility] CenterComment on above:Performed By: #### A1C #### [facility] [address] [place] [address] Dr. Gin ReganGFR-NON AF SINGAPOREAN>60Normal>=60The [facility] CenterComment on above:Performed By: #### A1C #### [facility] [address] [address] [address] Gin ChewGlucose [Mass/Vol]119 mg/dLCritically zttv65-430Gnj [facility] CenterComment on above:Performed By: #### A1C #### [facility] [address] [address] [address] Gin ChewPotassium [Moles/Vol]3.7 mmol/LNormal3.5-5.1[facility] Comment on above:Performed By: #### A1C #### [facility] [address] [place] [address] Dr. Gin ChewSodium [Moles/Vol]141 mmol/HQtemrn788-012Utx [facility] Comment on above:Performed By: #### A1C #### [facility] [address] [place] [address] Dr. Gin Bennett nitrogen [Mass/Vol]17.0 mg/dLNormal7.0-18.0The [facility] CenterComment on above:Performed By: #### A1C #### [facility] [address] [place] [address] Dr. Gin ChewUrea nitrogen/Creatinine [Mass ratio]19.8 mg/mgNormalThe [facility] CenterComment on above:Performed By: #### A1C #### [facility] [address] [place] [address] Dr. Gin Cruz RATE WESTERGRENon [id number] RATE8 mm/hrNormal<=30The [facility] CenterComment on above:Performed By: #### A1C #### [facility] [address] [place] [address] Dr. Gin Salter AUTO DIFFon [id number] #0.1 103/ulNormal0.0-0.1The [facility] CenterComment on above:Performed By: #### BMP #### [facility] [address] [place] [address] Dr. Gin ChewBasophils/100 WBC (Bld)0.7 %Normal0.2-2.0[facility] Comment on above:Performed By: #### BMP #### [facility] [address] [place] [address] Dr. Gin Carlton #0.3 103/ulNormal0.0-0.7The [facility] CenterComment on above: Performed By: #### BMP #### [facility] [address] [place] [address] Dr. Gin Reganosinophils/100 WBC (Bld)1.9 %Normal0.9-7.0The [facility] Comment on above:Performed By: #### BMP #### [facility] [address] [place] [address] Dr. Yilan ChangErythrocyte distribution width (RBC) [Ratio]12.9 %Bnqqht82.0-15.0 The [facility] CenterComment on above:Performed By: #### BMP #### [facility] [address] [place] [address] Dr. Gin ChewHematocrit (Bld) [Volume fraction]42.9 %Mmxnji36.0-48.0The [facility] CenterComment on above:Performed By: #### BMP #### [facility] [address] [place] [address] Dr. Gin ChewHemoglobin (Bld) [Mass/Vol]14.3 g/aNDqfmfe02.0-16.0The [facility] CenterComment on above:Performed By: #### BMP #### [facility] [address] [place] [address] Dr. Gin Harris #0.41 10e3/ulCritically high0.00-0.03The [facility] Comment on above:Performed By: #### BMP #### [facility] [address] [place] [address] Dr. Gin Harris %2.5 %Critically high0.0-0.5The [facility] CenterComment on above:Performed By: #### BMP #### [facility] [address] [place] [address] Dr. Gin Girard #3.5 103/ulNormal1.2-3.8The [facility] CenterComment on above:Performed By: #### BMP #### [facility] [address] [place] [address] Dr. Gin Whitakerhocytes/100 WBC (Bld)21.5 %Odgrbs29.5-60.0The [facility] CenterComment on above:Performed By: #### BMP #### [facility] [address] [place] [address] Dr. Gin JangUAL DIFF REQNONormalThe [facility] CenterComment on above: Performed By: #### BMP #### [facility] [address] [place] [address] Dr. Gin Lanier (RBC) [Entitic mass]30.9 mxQzxgvf03.7-34.0The [facility] CenterComment on above:Performed By: #### BMP #### [facility] [address] [place] [address] Dr. Gin Love (RBC) [Mass/Vol]33.3 g/aUCkeaov05.9-35.2The [facility] CenterComment on above:Performed By: #### BMP #### [facility] [address] [place] [address] Dr. Gin Love (RBC) [Entitic vol]92.7 hVQlotzi20.0-99.0The [facility] CenterComment on above:Performed By: #### BMP #### [facility] [address] [place] [address] Dr. Gin Reyes #1.0 103/ulCritically high0.3-0.8The [facility] Comment on above:Performed By: #### BMP #### [facility] [address] [place] [address] Dr. Gin Mathiasocytes/100 WBC (Bld)6.2 %Normal1.7-12.0[facility] Comment on above:Performed By: #### BMP #### [facility] [address] [place] [address] Dr. Gin Romero #10.9 103/ulCritically high1.4-6.5The [facility] Comment on above:Performed By: #### BMP #### [facility] [address] [place] [address] Dr. Gin Boutrophils/100 WBC (Bld)67.2 %Wclait13.0-75.0The [facility] CenterComment on above:Performed By: #### BMP #### [facility] [address] [place] [address] Dr. Gin Gamble mean volume (Bld) [Entitic vol]9.7 fLNormal9.5-13.5The [facility] CenterComment on above:Performed By: #### BMP #### [facility] [address] [address] [address] Gin ChewPLT424 103/yiBqjlks901-834Nvc [facility] CenterComment on above: Performed By: #### BMP #### [facility] [address] [place] [address] Dr. Gin ChewRBC4.63 106/ulNormal4.20-5.40The [facility] CenterComment on above:Performed By: #### BMP #### [facility] [address] [address] [address] Gin ChewWBC16.2 103/ulCritically high4.0-11.0The [facility] CenterComveterans affairs medical center on above:Performed By: #### BMP #### [facility] [address] [place] [address] Dr. Gin ChewCT HEAD WO CONon [id number] HEAD WO CONHEAD CT WITHOUT CONTRAST, 08/17/2022 [...] Electronically authenticated by: Lloyd SANDRA Date: 2022-08-17 18:16[facility] ([facility])on [id number]-CoV-2 (COVID-19) RNA ARIADNA+probe Ql (Unsp spec)Not detectedNormalNOT DETECTEDThe [facility] Comment on above:Result Comment: This test is not yet approved or cleared by the [place] FDA. When there are no FDA-approved or cleared tests available, and other criteria are met, FDA can make tests available under an emergency access mechanism called an Emergency Use Authorization (EUA). The EUA for this test is supported by the [employer] of Health and Human Service's (HHS's) declaration [...] consistent with SARS-CoV-2.Performed By: #### A1C #### [facility] [facility] [address] [place] [address] Dr. Gin ChewPROF CHEM 8 (BAS METB)on [id number] gap [Moles/Vol]13.8 mmol/LNormalMercy Health – The Jewish HospitalComment on above:Performed By: #### BMP #### [facility] [address] [place] [address] Dr. Gin ChewCalcium [Mass/Vol]9.0 mg/dLNormal8.5-10.1[facility] Comment on above:Performed By: #### BMP #### [facility] [address] [place] [address] Dr. Gin ChewChloride [Moles/Vol]102 mmol/TCdosju08-797Ion [facility] Comment on above:Performed By: #### BMP #### [facility] [address] [place] [address] Dr. Gin ChewCO2 [Moles/Vol]28.4 mmol/XVmnwhp04.0-32.0The [facility] Comment on above:Performed By: #### BMP #### [facility] [address] [address] [address] Gin ChewCreatinine [Mass/Vol]0.93 mg/dLNormal0.55-1.02The [facility] CenterComment on above:Performed By: #### BMP #### [facility] [address] [address] [address] Gin ReganGFR-AF SINGAPOREAN>60Normal>=60The [facility] CenterComment on above:Performed By: #### BMP #### [facility] [address] [address] [address] Gin ReganGFR-NON AF SINGAPOREAN>60Normal>=60The [facility] CenterComment on above:Performed By: #### BMP #### [facility] [address] [address] [address] Gin ChewGlucose [Mass/Vol]133 mg/dLCritically vavn12-671Mml [facility] CenterComment on above:Performed By: #### BMP #### [facility] [address] [address] [address] Gin ChewPotassium [Moles/Vol]4.2 mmol/LNormal3.5-5.1[facility] Comment on above:Performed By: #### BMP #### [facility] [address] [address] [address] Gin ChewSodium [Moles/Vol]140 mmol/DSqhkrk413-350Kqu [facility] Comment on above:Performed By: #### BMP #### [facility] [address] [address] [address] Gin ChewUrea nitrogen [Mass/Vol]20.0 mg/dLCritically high7.0-18.0The [facility] CenterComment on above:Performed By: #### BMP #### [facility] [address] [address] [address] Gin ChewUrea nitrogen/Creatinine [Mass ratio]21.5 mg/mgNormalThe [facility] CenterComment on above:Performed By: #### BMP #### [facility] [address] [place] [address] Dr. Gin GrimesMATIC COVID-19 ANTIGENon [id number] StatementSEE BELOW NormalThe [facility] CenterComment on above:Result Comment: This [...] is revoked sooner.Performed By: #### A1C #### [facility] [address] [place] [address] Dr. Gin Posey-CoV-2 (COVID-19) RNA ARIADNA+probe Ql (Unsp spec)NegativeNormal NEGATIVEThe [facility] CenterComment on above:Performed By: #### A1C #### [facility] [address] [place] [address] Dr. Gin Salter AUTO DIFFon [id number] #0.1 103/ulNormal0.0-0.1The [facility] CenterComment on above:Performed By: #### BMP #### [facility] [address] [place] [address] Dr. Gin ChewBasophils/100 WBC (Bld)1.0 %Normal0.2-2.0The [facility] Comment on above:Performed By: #### BMP #### [facility] [address] [place] [address] Dr. Greenfield ChangEO #0.5 103/ulNormal0.0-0.7The [facility] CenterComment on above: Performed By: #### BMP #### [facility] [address] [place] [address] Dr. Gin Reganosinophils/100 WBC (Bld)7.1 %Critically high0.9-7.0The [facility] CenterComment on above:Performed By: #### BMP #### [facility] [address] [place] [address] Dr. Gin Reganrythrocyte distribution width (RBC) [Ratio]12.3 %Tcrgax35.0-15.0 The [facility] CenterComment on above:Performed By: #### BMP #### [facility] [address] [place] [address] Dr. Gin ChewHematocrit (Bld) [Volume fraction]39.6 %Ufkfab65.0-48.0The [facility] CenterComment on above:Performed By: #### BMP #### [facility] [address] [place] [address] Dr. Gin ChewHemoglobin (Bld) [Mass/Vol]13.5 g/pQXpmacq12.0-16.0The [facility] CenterComment on above:Performed By: #### BMP #### [facility] [address] [place] [address] Dr. Gin Harris #0.03 10e3/ulNormal0.00-0.03The [facility] CenterComment on above:Performed By: #### BMP #### [facility] [address] [place] [address] Dr. Gin Harris %0.4 %Normal0.0-0.5The [facility] CenterComment on above: Performed By: #### BMP #### [facility] [address] [place] [address] Dr. Gin WhitakerH #2.4 103/ulNormal1.2-3.8The [facility] CenterComment on above:Performed By: #### BMP #### [facility] [address] [place] [address] Dr. Gin Mckeonmphocytes/100 WBC (Bld)33.7 %Jbxnqq92.5-60.0The [facility] CenterComment on above:Performed By: #### BMP #### [facility] [address] [place] [address] Dr. Gin Jones DIFF REQNONormalThe [facility] CenterComment on above: Performed By: #### BMP #### [facility] [address] [place] [address] Dr. Gin Love (RBC) [Entitic mass]30.8 dvBrgrnh49.7-34.0The [facility] HospitalComment on above:Performed By: #### BMP #### [facility] [address] [place] [address] Dr. Gin Love (RBC) [Mass/Vol]34.1 g/yTQscoyw39.9-35.2The [facility] CenterComment on above:Performed By: #### BMP #### [facility] [address] [place] [address] Dr. Gin Love (RBC) [Entitic vol]90.2 eSMqtcit05.0-99.0The [facility] CenterComment on above:Performed By: #### BMP #### [facility] [address] [place] [address] Dr. Gin Reyes #0.5 103/ulNormal0.3-0.8The [facility] CenterComment on above:Performed By: #### BMP #### [facility] [address] [place] [address] Dr. Gin Mathiasocytes/100 WBC (Bld)6.7 %Normal1.7-12.0The [facility] Comment on above:Performed By: #### BMP #### [facility] [address] [place] [address] Dr. Gin Romero #3.6 103/ulNormal1.4-6.5The [facility] CenterComment on above:Performed By: #### BMP #### [facility] [address] [place] [address] Dr. Gin Boutrophils/100 WBC (Bld)51.1 %Efzspr19.0-75.0The [facility] CenterComment on above:Performed By: #### BMP #### [facility] [address] [place] [address] Dr. Gin Gamble mean volume (Bld) [Entitic vol]9.6 fLNormal9.5-13.5The [facility] CenterComment on above:Performed By: #### BMP #### [facility] [address] [place] [address] Dr. Gin ChewPLT337 103/muJbghxp768-554Blf [facility] CenterComment on above: Performed By: #### BMP #### [facility] [address] [place] [address] Dr. Gin ChewRBC4.39 106/ulNormal4.20-5.40The [facility] CenterComment on above:Performed By: #### BMP #### [facility] [address] [place] [address] Dr. Gin ChewWBC7.0 103/ulNormal4.0-11.0The [facility] CenterComment on above: Performed By: #### BMP #### [facility] [address] [place] [address] Dr. Gin Baldwin URINEon [id number] URINECulture Observations: MODERATE GROWTH OF MIXED GENITAL ELOINA. NO POTENTIAL PATHOGENS SEEN.NormalThe [facility] CenterComment on above:Performed By: #### A1C #### [facility] [address] [place] [address] Dr. Gin Crawford T3on 83-88-0703FEBC T32.10 pg/mlLCritically low2.18-3.98The [facility] CenterComment on above:Performed By: #### FT3, CMP, LIPID, TSH #### [facility] [address] [place] [address] Dr. Gin Crawford T4on 30-01-2284Lwsg T4 [Mass/Vol]1.56 ng/dLCritically high 0.76-1.46The [facility] CenterComment on above:Performed By: #### FT4, VITAD #### [facility] [address] [address] [address] Gin ChewGLYCOHEMOGLOBIN A1Con 73-14-6895LND RECOMMENDATIONSEE BELOWDayton Va Medical CenterComveterans affairs medical center on above:Result Comment: ADA RECOMMENDED LIMIT 4.0 - 6.0 ADA THERAPEUTIC TARGET < 7.0 ACTION SUGGESTED > 7.0Performed By: #### A1C #### [facility] [address] [address] [address] Gin ChewGlucose [Mass/Vol]134 mg/dLNoMartin Memorial HospitalComment on above:Performed By: #### A1C #### [facility] [address] [place] [address] Dr. Gin ChewHbA1c (Bld) [Mass fraction]6.3 %Critically high4.5-6.2[facility] HospitalComment on above:Performed By: #### A1C #### [facility] [address] [place] [address] Dr. Gin ChewLIPID PROFILEon [id number]-HDL RATIO NORMSEE [facility] HospitalComveterans affairs medical center on above:Result Comment: 3.3 - 4.4 LOW RISK 4.4 - 7.1 AVERAGE RISK 7.1 - 11.0 MODERATE RISK >11.0 HIGH RISKPerformed By: #### FT3, CMP, LIPID, TSH #### [facility] [address] [place] [address] Dr. Gin ChewCholesterol [Mass/Vol]190 mg/dLNormal<=200The [facility] Comment on above:Performed By: #### FT3, CMP, LIPID, TSH #### [facility] [address] [address] [address] Gin ChewCholesterol in HDL [Mass/Vol]76 mg/dLCritically gvqo79-24Dho [facility] CenterComveterans affairs medical center on above:Performed By: #### FT3, CMP, LIPID, TSH #### [facility] [address] [place] [address] Dr. Gin ChewCholesterol in LDL [Mass/Vol]98.4 mg/dLPremier Health Miami Valley HospitalComment on above:Performed By: #### FT3, CMP, LIPID, TSH #### [facility] [address] [place] [address] Dr. Gin ChewCholesterol.total/Cholesterol in HDL [Mass ratio]2.5 {ratio} NormalThe [facility] CenterComment on above:Performed By: #### FT3, CMP, LIPID, TSH #### [facility] [address] [address] [address] Gin Mota NORMAL> or = 60 mg/dl - LOW CARDIOVASCULAR RISK <40 mg/dl - HIGH CARDIOVASCULAR RISKNoMartin Memorial HospitalComment on above:Performed By: #### FT3, CMP, LIPID, TSH #### [facility] [address] [place] [address] Dr. Gin ChewLDL CALC NORMALSEE BELOWNoMartin Memorial HospitalComment on above:Result Comment: <100 mg/dl OPTIMAL 100 - 129 mg/dl NEAR OR ABOVE OPTIMAL 130 - 159 mg/dl BORDERLINE HIGH 160 - 189 mg/dl HIGH >190 mg/dl VERY HIGH Performed By: #### FT3, CMP, LIPID, TSH #### [facility] [address] [place] [address] Dr. Gin ChewTriglyceride [Mass/Vol]78 mg/dLNormal<=150[facility] Comment on above:Performed By: #### FT3, CMP, LIPID, TSH #### [facility] [address] [place] [address] Dr. Gin ChewVLDL CALC15.6 mg/dLNoMartin Memorial HospitalComment on above: Performed By: #### FT3, CMP, LIPID, TSH #### [facility] [address] [place] [address] Dr. Gin MacedoALBUMIN, RAND URon 09-05-7252oNDQ7.7 mg/LNormal<=30.0[facility] HospitalComment on above:Performed By: #### A1C #### [facility] [address] [place] [address] Dr. Gin Hitchcock 14(COMP METB)on 17-72-2806Ghvfevl [Mass/Vol]4.0 g/dLNormal 3.4-5.0The [facility] CenterComment on above:Performed By: #### FT3, CMP, LIPID, TSH #### [facility] [address] [address] [address] Gin ChewAlbumin/Globulin [Mass ratio]1.2 {ratio}NormalThe [facility] CenterComment on above:Performed By: #### FT3, CMP, LIPID, TSH #### [facility] [address] [address] [address] Gin Cm [Catalytic activity/Vol]67 U/NPbccfs68-351Wmk [facility] CenterComment on above:Performed By: #### FT3, CMP, LIPID, TSH #### [facility] [address] [place] [address] Dr. Gin Vera [Catalytic activity/Vol]25 U/JLmnauo40-20Bwd [facility] CenterComment on above:Performed By: #### FT3, CMP, LIPID, TSH #### [facility] [address] [address] [address] Gin Hyaes gap [Moles/Vol]12.2 mmol/LNormalThe [facility] Comment on above:Performed By: #### FT3, CMP, LIPID, TSH #### [facility] [address] [address] [address] Gin ChewAST [Catalytic activity/Vol]20 U/SArfswj74-10Mmx [facility] Centerment on above:Performed By: #### FT3, CMP, LIPID, TSH #### [facility] [address] [address] [address] Gin ChewBilirubin [Mass/Vol]0.4 mg/dLNormal0.2-1.0The [facility] Comment on above:Performed By: #### FT3, CMP, LIPID, TSH #### [facility] [address] [address] [address] Gin ChewCalcium [Mass/Vol]9.6 mg/dLNormal8.5-10.1The [facility] Comment on above:Performed By: #### FT3, CMP, LIPID, TSH #### [facility] [address] [address] [address] Gin ChewChloride [Moles/Vol]103 mmol/IIzzsoq71-144Ncx [facility] Comment on above:Performed By: #### FT3, CMP, LIPID, TSH #### [facility] [address] [address] [address] Gin ChewCO2 [Moles/Vol]28.1 mmol/EYsuamf65.0-32.0The [facility] Comment on above:Performed By: #### FT3, CMP, LIPID, TSH #### [facility] [address] [place] [address] Dr. Gin ChewCreatinine [Mass/Vol]0.64 mg/dLNormal0.55-1.02The [facility] CenterComment on above:Performed By: #### FT3, CMP, LIPID, TSH #### [facility] [address] [place] [address] Dr. Gin ReganGFR-AF SINGAPOREAN>60Normal>=60The [facility] CenterComment on above:Performed By: #### FT3, CMP, LIPID, TSH #### [facility] [address] [place] [address] Dr. Gin ReganGFR-NON AF SINGAPOREAN>60Normal>=60The [facility] CenterComment on above:Performed By: #### FT3, CMP, LIPID, TSH #### [facility] [address] [place] [address] Dr. Gin ChewGlobulin (S) [Mass/Vol]3.3 g/dLNormalThe [facility] CenterComment on above:Performed By: #### FT3, CMP, LIPID, TSH #### [facility] [address] [address] [address] Gin ChewGlucose [Mass/Vol]98 mg/oRNtusqv60-618Lax [facility] Comment on above:Performed By: #### FT3, CMP, LIPID, TSH #### [facility] [address] [place] [address] Dr. Gin ChewPotassium [Moles/Vol]4.3 mmol/LNormal3.5-5.1The [facility] Comment on above:Performed By: #### FT3, CMP, LIPID, TSH #### [facility] [address] [place] [address] Dr. Gin ChewProtein [Mass/Vol]7.3 g/dLNormal6.4-8.2The [facility] Comment on above:Performed By: #### FT3, CMP, LIPID, TSH #### [facility] [address] [place] [address] Dr. Gin ChewSodium [Moles/Vol]139 mmol/HZjqetl994-443Yvo [facility] Comment on above:Performed By: #### FT3, CMP, LIPID, TSH #### [facility] [address] [place] [address] Dr. Gin Bennett nitrogen [Mass/Vol]21.0 mg/dLCritically high7.0-18.0The [facility] CenterComment on above:Performed By: #### FT3, CMP, LIPID, TSH #### [facility] [address] [place] [address] Dr. Gin Bennett nitrogen/Creatinine [Mass ratio]32.8 mg/mgNormalThe [facility] CenterComment on above:Performed By: #### FT3, CMP, LIPID, TSH #### [facility] [address] [place] [address] Dr. Gin Shields 59-46-4606AHX3.200 uIU/mLNormal0.358-3.740[facility] HospitalComment on above:Performed By: #### FT3, CMP, LIPID, TSH #### [facility] [address] [place] [address] Dr. Gin Westbrook RANDOM W/MICROSCOPICon 41-49-5954BGQVWIGZAOCJ SEENNormalNONE SEENThe [facility] CenterComment on above:Performed By: #### FT3, CMP, LIPID, TSH #### [facility] [address] [address] [address] Gin ChewBilirubin Ql (U)NegativeNormalNEGATIVEMercy Health – The [facility] Hospital Comment on above:Performed By: #### FT3, CMP, LIPID, TSH #### [facility] [address] [address] [address] Gin ChewCASTNONE SEENNormalNONE SEENMercy Health – The Jewish HospitalComment on above:Performed By: #### FT3, CMP, LIPID, TSH #### [facility] [address] [address] [address] Gin ChewClarity (U)CLEARNormalCLEARMercy Health – The Jewish HospitalComment on above: Performed By: #### FT3, CMP, LIPID, TSH #### [facility] [address] [address] [address] Gin ChewColor (U)LT. YELLOWNormalYELLOWMercy Health – The Jewish HospitalComment on above:Performed By: #### FT3, CMP, LIPID, TSH #### [facility] [address] [address] [address] Gin ChewCrystals LM Nom (Urine sed)NONE SEENNormalNONE SEENMercy Health – The Jewish HospitalComment on above:Performed By: #### FT3, CMP, LIPID, TSH #### [facility] [address] [address] [address] Greenfield ChangEpithelial cells LM Ql (Urine sed)FEWAbnormalNONE SEEN /RAREThe [facility] CenterComveterans affairs medical center on above:Performed By: #### FT3, CMP, LIPID, TSH #### [facility] [address] [address] [address] Gin ChewGlucose Ql (U)NegativeNormalNEGATIVEMercy Health – The Jewish HospitalComment on above:Performed By: #### FT3, CMP, LIPID, TSH #### [facility] [address] [address] [address] Gin ChewHemoglobin Ql (U)NegativeNormalNEGATIVEMercy Health – [facility] Comment on above:Performed By: #### FT3, CMP, LIPID, TSH #### [facility] [address] [address] [address] Gin Munguia Ql (U)NegativeNormalNEGATIVEThe [facility] CenterComment on above:Performed By: #### FT3, CMP, LIPID, TSH #### [facility] [address] [address] [address] Gin ChewLEUKOCYTESNegativeNormalNEGATIVEThe [facility] CenterComment on above:Performed By: #### FT3, CMP, LIPID, TSH #### [facility] [address] [address] [address] Gin Whitten SEENNormalNONE SEENMercy Health – The Jewish HospitalComment on above:Performed By: #### FT3, CMP, LIPID, TSH #### [facility] [address] [address] [address] Gin Muniz Ql (U)NegativeNormalNEGATIVEThe [facility] CenterComment on above:Performed By: #### FT3, CMP, LIPID, TSH #### [facility] [address] [address] [address] Gin ChewpH (U)5.5 [pH]Normal5-9The [facility] CenterComment on above: Performed By: #### FT3, CMP, LIPID, TSH #### [facility] [address] [address] [address] Gin Blakely SEENAbnormal0-2The [facility] CenterComment on above: Performed By: #### FT3, CMP, LIPID, TSH #### [facility] [address] [address] [address] Gin ChewSPEC GRAVITY1.182Lbjobv6.005-<=1.025The [facility] CenterComment on above:Performed By: #### FT3, CMP, LIPID, TSH #### [facility] [address] [address] [address] Gin ChewUA PROTEINNegativeNormalNEGATIVE/ TRACEThe [facility] Comment on above:Performed By: #### FT3, CMP, LIPID, TSH #### [facility] [address] [place] [address] Dr. Gin Avila Qn (U)0.2 {David'U}/dLNormal0.2 - 1.0The [facility] Centerment on above:Performed By: #### FT3, CMP, LIPID, TSH #### [facility] [address] [place] [address] Dr. Gin Donovan SEENrmalNONE SEENThe [facility] CenterComment on above: Performed By: #### FT3, CMP, LIPID, TSH #### [facility] [address] [place] [address] Dr. Gin ChewVITAMIN D 25 OHon 44-58-2551XDP D 25-OH30.1 ng/mLNormalThe [facility] CenterComment on above:Performed By: #### FT4, VITAD #### [facility] [address] [place] [address] Dr. Gin DARDENSEE [facility] HospitalComment on above: Result Comment: <20 ng/mL Vit D deficient 20 - <30 ng/mL Vit D insufficient 30 - 100 ng/mL Vit D sufficient >100 ng/mL Potential ToxicityPerformed By: #### FT4, VITAD #### [facility] [address] [place] [address] Dr. Gin Crawford T3on [id number] T32.83 pg/mlLNormal2.18-3.98The [facility] CenterComment on above:Performed By: #### BMP #### [facility] [address] [place] [address] Dr. Gin Crawford T4on [id number] T4 [Mass/Vol]1.74 ng/dLCritically high 0.76-1.46The [facility] CenterComveterans affairs medical center on above:Performed By: #### FT4 #### [facility] [address] [place] [address] Dr. Gin Shields 14-54-8167ZAF3.235 uIU/mLCritically low0.358-3.740The [facility] CenterComment on above:Performed By: #### BMP #### [facility] [address] [place] [address] Dr. Gin ChewXR CHEST 2 Von [id number] CHEST 2 VEXAMINATION: XR CHEST 2 V [...] Electronically authenticated by: JEFF PATHAK Date: 2021-11-29 21:03[facility] HospitalCNPNon [id number] (ENDOSO) CANELO PATHAK ([id number]) 1965 F Date Time Provider Department 10/13/21 [...] Date Reviewed: 10/13/2021 Reviewed by: Anila Jimenez APRN.MANAGER COMPLETIONS - Fully Assessed Reason for Visit: Appointment [...] daily. - mometasone furoate(NASONEX 50 MCG/ACTUATION SPRAY) Koppel twice in each nostril once daily. - [...] wi*10/11/2021 Encounter Status:Closed by ANILA JIMENEZ on 10/13/21[facility] W Auto Differential panel (Bld)on [id number] (Bld) [#/Vol] 0.07 10*3/uLNormal<0.11CMagruder Memorial Hospital on above:Order Comment: Specimen Type: BLOOD SPECIMENOrdering Facility: [facility] Address:[address] [place], [place] [address]Performed By: #### CMP, HBA1C, FREET3, FT4, TSH #### [place] [address] Mjwbihrcb/100 WBC (Bld)0.7 %[facility] on above:Order Comment: Specimen Type: BLOOD SPECIMENOrdering Facility: [facility] Address:[address] [place] [address] Performed By: #### CMP, HBA1C, FREET3, FT4, TSH #### [place] [address] Jdbeqdlwjaau cell count method Nom (Bld)AutoNormalCMagruder Memorial Hospital on above:Order Comment: Specimen Type: BLOOD SPECIMENOrdering Facility: [facility] Address:[address] [place], [place] [address]Performed By: #### CMP, HBA1C, FREET3, FT4, TSH #### [place] [address] Jlfwkqflqgd (Bld) [#/Vol]0.29 10*3/uLNormal<0.46[facility] on above:Order Comment: Specimen Type: BLOOD SPECIMENOrdering Facility: [facility] Address:[address] [place], [place] [address]Performed By: #### CMP, HBA1C, FREET3, FT4, TSH #### [place] [address] Nuqrjikelcz/100 WBC (Bld)3.0 %[facility] Comment on above:Order Comment: Specimen Type: BLOOD SPECIMENOrdering Facility: [facility] Address:[address] [place] [address] Performed By: #### CMP, HBA1C, FREET3, FT4, TSH #### [place] [address] Ucgsanhkafc distribution width (RBC) [Ratio]12.3 %Hkjcay86.5-15.0 [facility] on above:Order Comment: Specimen Type: BLOOD SPECIMENOrdering Facility: [facility] Address:[address] [place], [place] [address]Performed By: #### CMP, HBA1C, FREET3, FT4, TSH #### [place] [address] Bssijbkyoc (Bld) [Volume fraction]43.4 %Urzwaa15.0-46.0[facility] on above:Order Comment: Specimen Type: BLOOD SPECIMENOrdering Facility: [facility] Address:[address] [place], [place] [address]Performed By: #### CMP, HBA1C, FREET3, FT4, TSH #### [place] [address] Qdlosdlqpn (Bld) [Mass/Vol]14.5 g/pTJmvvur38.5-15.5CMagruder Memorial Hospital on above:Order Comment: Specimen Type: BLOOD SPECIMENOrdering Facility: [facility] Address:[address] [place], [place] [address]Performed By: #### CMP, HBA1C, FREET3, FT4, TSH #### [place] [address] EHGCIJIT GRAN %0.4 %NormalRegency Hospital Company on above:Order Comment: Specimen Type: BLOOD SPECIMENOrdering Facility: [facility] Address:[address] [place], [place] [address]Performed By: #### CMP, HBA1C, FREET3, FT4, TSH #### [place] [address] WAQXGLDY GRAN ABS0.04 k/uLNormal<0.10[facility] Comment on above:Order Comment: Specimen Type: BLOOD SPECIMENOrdering Facility: [facility] Address:[address] [place] [address] Performed By: #### CMP, HBA1C, FREET3, FT4, TSH #### [place] [address] Lakvtwkscmn (Bld) [#/Vol]2.21 10*3/uLNormal1.00-4.00[facility] on above:Order Comment: Specimen Type: BLOOD SPECIMENOrdering Facility: [facility] Address:[address] [place], [place] [address]Performed By: #### CMP, HBA1C, FREET3, FT4, TSH #### [place] [address] Qhznzmidbva/100 WBC (Bld)22.6 %NormalKettering Health Dayton Comment on above:Order Comment: Specimen Type: BLOOD SPECIMENOrdering Facility: [facility] Address:[address] [place] [address] Performed By: #### CMP, HBA1C, FREET3, FT4, TSH #### [place] [phone] (RBC) [Entitic mass]30.7 kiHqvgrr80.0-34.0[facility] on above:Order Comment: Specimen Type: BLOOD SPECIMENOrdering Facility: [facility] Address:[address] [place], [place] [address]Performed By: #### CMP, HBA1C, FREET3, FT4, TSH #### [place] [phone] (RBC) [Mass/Vol]33.4 g/aBTjjsvs39.5-36.0[facility] on above:Order Comment: Specimen Type: BLOOD SPECIMENOrdering Facility: [facility] Address:[address] [place], [place] [address]Performed By: #### CMP, HBA1C, FREET3, FT4, TSH #### [place] [phone] (RBC) [Entitic vol]91.9 lIXinmuf20.0-100.0[facility] on above:Order Comment: Specimen Type: BLOOD SPECIMENOrdering Facility: [facility] Address:[address] [place], [place] [address]Performed By: #### CMP, HBA1C, FREET3, FT4, TSH #### [place] [phone] (Bld) [#/Vol]0.60 10*3/uLNormal<0.87[facility] on above:Order Comment: Specimen Type: BLOOD SPECIMENOrdering Facility: [facility] Address:[address] [place], [place] [address]Performed By: #### CMP, HBA1C, FREET3, FT4, TSH #### [place] [phone]/100 WBC (Bld)6.1 %NormalRegency Hospital Company on above:Order Comment: Specimen Type: BLOOD SPECIMENOrdering Facility: [facility] Address:[address] [place], [place] [address] Performed By: #### CMP, HBA1C, FREET3, FT4, TSH #### [place] [phone] (Bld) [#/Vol]6.57 10*3/uLNormal1.45-7.50[facility] on above:Order Comment: Specimen Type: BLOOD SPECIMENOrdering Facility: [facility] Address:[address] [place], [place] [address]Performed By: #### CMP, HBA1C, FREET3, FT4, TSH #### [place] [address] Wrmoioiddir/100 WBC (Bld)67.2 %NormalKettering Health Dayton Comment on above:Order Comment: Specimen Type: BLOOD SPECIMENOrdering Facility: [facility] Address:[address] [place] [address] Performed By: #### CMP, HBA1C, FREET3, FT4, TSH #### [place] [address] Qbjzjiglx RBC (Bld) [#/Vol]10*3/uLNormal<0.01[facility] on above:Order Comment: Specimen Type: BLOOD SPECIMENOrdering Facility: [facility] Address:[address] [place], [place] [address]Performed By: #### CMP, HBA1C, FREET3, FT4, TSH #### [place] [address] Pnybqhclh RBC/100 WBC (Bld) [Ratio]0.0 /100 WBCNormalCOhioHealth Marion General Hospitalment on above:Order Comment: Specimen Type: BLOOD SPECIMENOrdering Facility: [facility] Address:[address] [place], [place] [address]Performed By: #### CMP, HBA1C, FREET3, FT4, TSH #### [place] [address] Dtolbddv mean volume (Bld) [Entitic vol]10.4 fLNormal9.0-12.7 [facility] on above:Order Comment: Specimen Type: BLOOD SPECIMENOrdering Facility: [facility] Address:[address] [place], [place] [address]Performed By: #### CMP, HBA1C, FREET3, FT4, TSH #### [place] [address] Iisaxrdtb (Bld) [#/Vol]371 10*3/eADopqzj208-501AgqeiogwoRegency Hospital Company on above:Order Comment: Specimen Type: BLOOD SPECIMENOrdering Facility: [facility] Address:[address] [place], [place] [address]Performed By: #### CMP, HBA1C, FREET3, FT4, TSH #### [facility] [address] [place] [address] QPQ (Bld) [#/Vol]4.72 10*6/uLNormal3.90-5.20[facility] on above:Order Comment: Specimen Type: BLOOD SPECIMENOrdering Facility: [facility] Address:[address] [place], [place] [address]Performed By: #### CMP, HBA1C, FREET3, FT4, TSH #### [place] [address] IQE (Bld) [#/Vol]9.78 10*3/uLNormal3.70-11.00[facility] on above:Order Comment: Specimen Type: BLOOD SPECIMENOrdering Facility: [facility] Address:[address] [place], [place] [address]Performed By: #### CMP, HBA1C, FREET3, FT4, TSH #### [facility] [address] [place] [address] Fyr Immature Gran0.04 k/uL<0.10 k/uLClinton Memorial HospitalBasophils (Bld) [#/Vol]0.07 10*3/uL<0.11 k/uLSacramento ClinicBasophils/100 WBC (Bld)0.7 % [facility] HospitalDifferential cell count method Nom (Bld)AutoCKettering Health Greene Memorial Eosinophils (Bld) [#/Vol]0.29 10*3/uL<0.46 k/uLClinton Memorial HospitalEosinophils/100 WBC (Bld)3.0 %[facility] HospitalErythrocyte distribution width (RBC) [Ratio]12.3 % 11.5 - 15.0 %[facility] HospitalHematocrit (Bld) [Volume fraction]43.4 %36.0 - 46.0 %[facility] HospitalHemoglobin (Bld) [Mass/Vol]14.5 g/dL11.5 - 15.5 g/dLClinton Memorial HospitalImmature Gran %0.4 %[facility] HospitalLymphocytes (Bld) [#/Vol]2.21 10*3/uL 1.00 - 4.00 k/uLClinton Memorial HospitalLymphocytes/100 WBC (Bld)22.6 %[facility] MCH (RBC) [Entitic mass]30.7 pg26.0 - 34.0 pgClevelSt. Elizabeth HospitalMCHC (RBC) [Mass/Vol]33.4 g/dL30.5 - 36.0 g/dLClinton Memorial HospitalMCV (RBC) [Entitic vol]91.9 fL80.0 - 100.0 fLClevelSt. Elizabeth HospitalMonocytes (Bld) [#/Vol]0.60 10*3/uL<0.87 k/uL [facility] HospitalMonocytes/100 WBC (Bld)6.1 %[facility] HospitalNeutrophils (Bld) [#/Vol]6.57 10*3/uL1.45 - 7.50 k/uLClinton Memorial HospitalNeutrophils/100 WBC (Bld)67.2 %[facility] HospitalNucleated RBC (Bld) [#/Vol]10*3/uL<0.01 k/uLClinton Memorial Hospital Nucleated RBC/100 WBC (Bld) [Ratio]0.0 /100 WBCClinton Memorial HospitalPlatelet mean volume (Bld) [Entitic vol]10.4 fL9.0 - 12.7 fLCleveltransylvania regional hospital ClinicPlatelets (Bld) [#/Vol]371 10*3/uL150 - 400 k/uLClinton Memorial HospitalRBC (Bld) [#/Vol]4.72 10*6/uL 3.90 - 5.20 m/uLClinton Memorial HospitalWBC (Bld) [#/Vol]9.78 10*3/uL3.70 - 11.00 k/uL [facility] HospitalCNOVon [id number] Visit (RHEUMN) CANELO PATHAK ([id number]) 1965 F Date Time Provider Department 10/07/21 [...] mcg (5,000 unit) cap - Vitamin D [place] ([employer] for [employer]) Take 1 capsule by mouth daily with food. - montelukast (SINGULAIR) 10 mg tablet Take 10 mg by mouth daily at bedtime. - MULTIVIT-MINERALS/FERROUS GLUC (CENTRAM-CARE ORAL) Take by mouth twice daily. - esomeprazole mag trihydrate(NEXIUM 40 MG CAP) Take one(1) capsule daily. - mometasone furoate(NASONEX 50 MCG/ACTUATION SPRAY) Koppel twice in each nostril once daily. - [...] [F41.1] Order(s):CBC + DIFF [SQCBCDIF] Order #: [id number] FUTURE PROTEIN ELECTROPHORESIS SERUM W/INTERP [SQSEPG] Order #: [id number] FUTURE venlafaxine ER (EFFEXOR XR) 37.5 mg 24 hr capsuletake one a day, if tolerated after two weeks increase to twoDisp: 60 capsuleRfl: 3 CO (more content not included)...NormalKettering Health DaytonComprehensive metabolic 2000 panelon 82-69-3335Jqzeljf [Mass/Vol]4.8 g/dLNormal3.9-4.9 [facility] on above:Order Comment: Specimen Type: BLOOD SPECIMENOrdering Facility: [facility] Address:[address] [place], [place] [address]Performed By: #### CMP, HBA1C, FREET3, FT4, TSH #### [facility] [address] [place] [address] FTE [Catalytic activity/Vol]72 U/KChwotu05-544CcoryodsmRegency Hospital Company on above:Order Comment: Specimen Type: BLOOD SPECIMENOrdering Facility: [facility] Address:[address] [place], [place] [address]Performed By: #### CMP, HBA1C, FREET3, FT4, TSH #### [facility] [address] [place] [address] MGD [Catalytic activity/Vol]24 U/LNormal7-38[facility] on above:Order Comment: Specimen Type: BLOOD SPECIMENOrdering Facility: [facility] Address:[address] [place], [place] [address]Performed By: #### CMP, HBA1C, FREET3, FT4, TSH #### [place] [address] Ozkqb gap [Moles/Vol]11 mmol/LNormal9-18[facility] Comment on above:Order Comment: Specimen Type: BLOOD SPECIMENOrdering Facility: [facility] Address:[address] [place] [address] Performed By: #### CMP, HBA1C, FREET3, FT4, TSH #### [place] [address] HFY [Catalytic activity/Vol]17 U/NMogrzv50-47VzsqydxhsKettering Health DaytonComveterans affairs medical center on above:Order Comment: Specimen Type: BLOOD SPECIMENOrdering Facility: [facility] Address:[address] [place], [place] [address]Performed By: #### CMP, HBA1C, FREET3, FT4, TSH #### [place] [address] Rmdurnlza [Mass/Vol]0.5 mg/dLNormal0.2-1.3CGeorgetown Behavioral Hospital Comment on above:Order Comment: Specimen Type: BLOOD SPECIMENOrdering Facility: [facility] Address:[address] [place] [address] Performed By: #### CMP, HBA1C, FREET3, FT4, TSH #### [place] [address] Fesdrxh [Mass/Vol]10.3 mg/dLHigh8.5-10.2CGeorgetown Behavioral Hospital Comment on above:Order Comment: Specimen Type: BLOOD SPECIMENOrdering Facility: [facility] Address:[address] [place] [address] Performed By: #### CMP, HBA1C, FREET3, FT4, TSH #### [place] [address] Brzslqbz [Moles/Vol]100 mmol/DBqiasw90-574QnllvuoxaKettering Health Dayton Comment on above:Order Comment: Specimen Type: BLOOD SPECIMENOrdering Facility: [facility] Address:[address] [place] [address] Performed By: #### CMP, HBA1C, FREET3, FT4, TSH #### [place] [address] SW7 [Moles/Vol]28 mmol/CUufdlp87-54IxkgzgnauKettering Health DaytonComment on above:Order Comment: Specimen Type: BLOOD SPECIMENOrdering Facility: [facility] Address:[address] [place] [address] Performed By: #### CMP, HBA1C, FREET3, FT4, TSH #### [place] [address] Npvhclabpo [Mass/Vol]0.70 mg/dLNormal0.58-0.96K[facility]tering Health DaytonComment on above:Order Comment: Specimen Type: BLOOD SPECIMENOrdering Facility: [facility] Address:[address] [place], [place] [address]Performed By: #### CMP, HBA1C, FREET3, FT4, TSH #### [place] [address] PIPSWWEPT GLOMERULAR FILTRATION XTYS556 mL/min/1.73m???Normal>=60 [facility] on above:Order Comment: Specimen Type: BLOOD SPECIMENOrdering Facility: [facility] Address:[address] [place], [place] [address]Result Comment: Estimated Glomerular Filtration Rate (eGFR) is [...] #### CMP, HBA1C, FREET3, FT4, TSH #### [place] [address] [place] [address] Sasvhpf [Mass/Vol]124 mg/eEQmkp09-81ZqyecrynfKettering Health Dayton Comment on above:Order Comment: Specimen Type: BLOOD SPECIMENOrdering Facility: [facility] Address:[address] [place], [place] [address] Result Comment: The [place] Diabetes Association (ADA) provides guidance for cutoff [...] Standards of Medical Care in Diabetes 2016, [place] Diabetes Association. Diabetes Care. 2016.39(Suppl 1).Performed By: #### CMP, HBA1C, FREET3, FT4, TSH #### [place] [address] Vmcntpmnf [Moles/Vol]4.1 mmol/LNormal3.7-5.1CGeorgetown Behavioral HospitalComment on above:Order Comment: Specimen Type: BLOOD SPECIMENOrdering Facility: [facility] Address:[address] [place] [phone] By: #### CMP, HBA1C, FREET3, FT4, TSH #### [place] [address] Bncdlfx [Mass/Vol]7.3 g/dLNormal6.3-8.0[facility] Comment on above:Order Comment: Specimen Type: BLOOD SPECIMENOrdering Facility: [facility] Address:[address] [place] [phone] Performed By: #### CMP, HBA1C, FREET3, FT4, TSH #### [place] [address] Tbjbfk [Moles/Vol]139 mmol/XVvexae878-380ZjwnpwjxkKettering Health Dayton Comment on above:Order Comment: Specimen Type: BLOOD SPECIMENOrdering Facility: [facility] Address:[address] [place] [address] Performed By: #### CMP, HBA1C, FREET3, FT4, TSH #### [place] [address] Ojqf nitrogen [Mass/Vol]18 mg/dLNormal7-21[facility] Comment on above:Order Comment: Specimen Type: BLOOD SPECIMENOrdering Facility: [facility] Address:[address] [place] [address] Performed By: #### CMP, HBA1C, FREET3, FT4, TSH #### [place] [address] XVF A1Con 78-07-7904Zwuargk glucose Estimated from glycated hemoglobin (Bld) [Mass/Vol]160 mg/dLNormalCGeorgetown Behavioral HospitalComment on above:Order Comment: Specimen Type: BLOOD SPECIMENOrdering Facility: [facility] Address:[address] [place], [place] [address]Result Comment: eAG: (Estimated average glucose) is a calculated value from HgbA1c and is field marketing representative of the average blood glucose level in the last 2-3 month period.Performed By: #### CMP, HBA1C, FREET3, FT4, TSH #### [place] [address] TvS0z (Bld) [Mass fraction]7.2 %High4.3-5.6CMagruder Memorial Hospital on above:Order Comment: Specimen Type: BLOOD SPECIMENOrdering Facility: [facility] Address:[address] [place], [place] [address]Result Comment: [place] Diabetes Association guidelines indicate that patients with HgbA1c in the range 5.7-6.4% are at increased risk for development of diabetes, and intervention by lifestyle modification may be beneficial. HgbA1c greater or equal to 6.5% is considered diagnostic of diabetes.Performed By: #### CMP, HBA1C, FREET3, FT4, TSH #### [place] [address] RWSKGOL ELECTROPHORESIS SERUM (P)on [id number] [Mass/Vol]4.18 g/dLNormal3.37-4.23[facility] on above:Order Comment: Specimen Type: BLOOD SPECIMENOrdering Facility: [facility] Address:[address] [place], [place] [address]Performed By: #### CMP, HBA1C, FREET3, FT4, TSH #### [place] [address] Djbng 1 globulin Elph [Mass/Vol]0.24 g/dLNormal0.18-0.31[facility] on above:Order Comment: Specimen Type: BLOOD SPECIMENOrdering Facility: [facility] Address:[address] [place], [place] [address]Performed By: #### CMP, HBA1C, FREET3, FT4, TSH #### [place] [address] Usgeq 2 globulin Elph [Mass/Vol]0.83 g/dLNormal0.52-0.97[facility] on above:Order Comment: Specimen Type: BLOOD SPECIMENOrdering Facility: [facility] Address:[address] [place], [place] [address]Performed By: #### CMP, HBA1C, FREET3, FT4, TSH #### [place] [address] Ijqj globulin Elph [Mass/Vol]1.21 g/dLNormal0.84-1.36[facility] on above:Order Comment: Specimen Type: BLOOD SPECIMENOrdering Facility: [facility] Address:[address] [place], [place] [address]Performed By: #### CMP, HBA1C, FREET3, FT4, TSH #### [place] [address] Gpuvs globulin Elph (Body fld) [Mass fraction]0.74 g/dLNormal 0.70-1.44[facility] on above:Order Comment: Specimen Type: BLOOD SPECIMENOrdering Facility: [facility] Address:[address] [place], [place] [address]Performed By: #### CMP, HBA1C, FREET3, FT4, TSH #### [place] [address] P-PROTEIN LOCATIONNormalCMagruder Memorial Hospital on above: Order Comment: Specimen Type: BLOOD SPECIMENOrdering Facility: [facility] Address:[address] [place], [place] [address]Result Comment: Not Applicable.Performed By: #### CMP, HBA1C, FREET3, FT4, TSH #### [place] [address] Xsyaxeg Fractions [Interp]No definitive M protein is identified on protein electrophoresis.NormalNo definitive M protein is identified on protein electrophoresis.[facility] on above:Order Comment: Specimen Type: BLOOD SPECIMENOrdering Facility: [facility] Address:[address] [place], [place] [address]Performed By: #### CMP, HBA1C, FREET3, FT4, TSH #### [place] [address] Yzinrqw.monoclonal Elph [Mass/Vol]0.00 g/dLNormal<=0.00[facility] on above:Order Comment: Specimen Type: BLOOD SPECIMENOrdering Facility: [facility] Address:[address] [place], [place] [address]Performed By: #### CMP, HBA1C, FREET3, FT4, TSH #### [place] [address] CVR STAFF REVIEWReviewed by Ginette Doyle MDNormalCMagruder Memorial Hospital on above:Order Comment: Specimen Type: BLOOD SPECIMENOrdering Facility: [facility] Address:[address] [place], [place] [address]Performed By: #### CMP, HBA1C, FREET3, FT4, TSH #### [place] [address] Zogc SerPl-mCncon 68-19-8004Rfgvnfd [Mass/Vol]7.2 g/dLNormal6.3-8.0 [facility] on above:Order Comment: Specimen Type: BLOOD SPECIMEN [facility] Address: [address] [place], [place] [address]Performed By: #### 2885-2 #### [facility] CLIA [id number] [address] [place], [place] [address]T3 FREE BLDon [id number] T3 [Mass/Vol]3.1 pg/mLNormal2.3-4.1CMagruder Memorial Hospital on above: Order Comment: Specimen Type: BLOOD SPECIMENOrdering Facility: [facility] Address:[address] [place], [place] [address]Performed By: #### CMP, HBA1C, FREET3, FT4, TSH #### [place] [phone] FREE/FREE THYROXon 79-83-4325Bnqm T4 [Mass/Vol]2.5 ng/dLHigh 0.9-1.7CMagruder Memorial Hospital on above:Order Comment: Specimen Type: BLOOD SPECIMENOrdering Facility: [facility] Address:[address] [place], [place] [address]Performed By: #### CMP, HBA1C, FREET3, FT4, TSH #### [place] [phone] SerPl-aCncon [id number] Qn0.228 m[IU]/LLow0.270-4.200 [facility] on above:Order Comment: Specimen Type: BLOOD SPECIMENOrdering Facility: [facility] Address:[address] [place] [id number] By: #### CMP, HBA1C, FREET3, FT4, TSH #### [facility] [address] [place], [place] [id number] QPTNsf [id number] (ENDOMN) CANELO PATHAK ([id number]) 1965 F Date Time Provider Department 10/03/21 ASAD ANSARI During your visit today, we recorded the following information about you: Renea Mcfarland Diamond Blender 10/03/2021 3:05 PM Addendum Patient called in [...] Fully Assessed Reason for Visit: Lab Orders [6788] Primary Visit Diagnosis:Acquired hypothyroidism [E03.9] Other Visit Diagnosis:Controlled type 2 diabetes mellitus without complication, without long-term current use of insulin (HCC) [E11.9] Order(s):TSH BLD [SQTSH] Order #: [id number] FUTURE T4 FREE/FREE THYROX [SQFT4] Order #: [id number] FUTURE T3 FREE BLD [SQFREET3] Order #: [id number] FUTURE COMP METABOLIC PANEL [SQCMP] Order #: [id number] FUTURE HGB A1C [QNMLJ3Y] Order #: [id number] FUTURE Prescriptions as of 10/05/2021 - metFORMIN ER (GLUCOPHAGE XR) 500 mg 24 hr tablet Take 2 tablets by mouth twice daily. - levothyroxine (SYNTHROID) 112 mcg tablet Take 2 tablets by mouth once daily. - cyclobenzaprine (FLEXERIL) 10 mg tablet - Cholecalciferol, Vitamin D3, 125 mcg (5,000 unit) cap - Vitamin D [place] ([employer]) Take 1 capsule by mouth daily with food. - montelukast (SINGULAIR) 10 mg tablet Take 10 mg by mouth daily at bedtime. - MULTIVIT-MINERALS/FERROUS GLUC (CENTRAM-CARE ORAL) Take by mouth twice daily. - esomeprazole mag trihydrate(NEXIUM 40 MG CAP) Take one(1) capsule daily. - mometasone furoate(NASONEX 50 MCG/ACTUATION SPRAY) [place] twice in each nostril once daily. - cetirizine hcl(ZYRTEC 10 MG TAB) Take one(1) tablet daily. - fluticasone/salmeterol(ADVAIR DISKUS 250 MCG-50 MCG/DOSE FOR INHALATION) Take one(1) inhalation twice daily; rinse and gargle mouth with water after each use. 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 Gin Jesus.MB [Mass/Vol]0.66 ng/mLNormal<=3.60[facility] Comment on above:Performed By: #### FT3, CMP, LIPID, TSH #### [facility] [address] [place] [address] Dr. Gin AmosTROP6.4 pg/mLNormal4.0-51.3The [facility] CenterComment on above:Result Comment: CUT-OFF POINTS HAVE BEEN ESTABLISHED BASED ON THE FOURTH UNIVERSAL DEFINITIONS OF MYOCARDIAL INFARCTION. THE UPPER REFERENCE LIMIT (URL) OF TROPONIN, DEFINED THE 99TH PERCENTILE OF cTnI DISTRIBUTION IN A REFERENCE POPULATION, HAS BEEN CONFIRMED THE DECISION THRESHOLD FOR [place] DIAGNOSIS.Performed By: #### FT3, CMP, LIPID, TSH #### [facility] [address] [place] [address] Dr. Gin CliftonO28 ng/mLNormal9-82[facility] HospitalComment on above: Performed By: #### FT3, CMP, LIPID, TSH #### [facility] [address] [place] [address] Dr. Gin Salter AUTO DIFFon [id number] #0.1 103/ulNormal0.0-0.1The [facility] CenterComment on above:Performed By: #### A1C #### [facility] [address] [place] [address] Dr. Gin ChewBasophils/100 WBC (Bld)0.7 %Normal0.2-2.0[facility] Comment on above:Performed By: #### A1C #### [facility] [address] [address] [address] Gin Carlton #0.5 103/ulNormal0.0-0.7The [facility] CenterComment on above: Performed By: #### A1C #### [facility] [address] [place] [address] Dr. Gin Reganosinophils/100 WBC (Bld)4.4 %Normal0.9-7.0The [facility] Comment on above:Performed By: #### A1C #### [facility] [address] [place] [address] Dr. Gin Reganrythrocyte distribution width (RBC) [Ratio]12.7 %Aqddeo95.0-15.0 The [facility] CenterComment on above:Performed By: #### A1C #### [facility] [address] [place] [address] Dr. Gin ChewHematocrit (Bld) [Volume fraction]42.2 %Yliqiu71.0-48.0The [facility] CenterComment on above:Performed By: #### A1C #### [facility] [address] [place] [address] Dr. Gin ChewHemoglobin (Bld) [Mass/Vol]14.1 g/jPDbvvro50.0-16.0The [facility] CenterComment on above:Performed By: #### A1C #### [facility] [address] [place] [address] Dr. Gin Harris #0.10 10e3/ulCritically high0.00-0.03The [facility] Comment on above:Performed By: #### A1C #### [facility] [address] [place] [address] Dr. Gin Harris %0.9 %Critically high0.0-0.5The [facility] CenterComment on above:Performed By: #### A1C #### [facility] [address] [place] [address] Dr. Gin WhitakerH #3.4 103/ulNormal1.2-3.8The [facility] CenterComment on above:Performed By: #### A1C #### [facility] [address] [place] [address] Dr. Gin ChewLymphocytes/100 WBC (Bld)29.9 %Pitgks66.5-60.0The [facility] CenterComment on above:Performed By: #### A1C #### [facility] [address] [place] [address] Dr. Gin JangUAL DIFF REQNONormalThe [facility] CenterComment on above: Performed By: #### A1C #### [facility] [address] [place] [address] Dr. Gin Love (RBC) [Entitic mass]31.0 zuFdymih75.7-34.0The [facility] CenterComment on above:Performed By: #### A1C #### [facility] [address] [place] [address] Dr. Gin Love (RBC) [Mass/Vol]33.4 g/zIXconzs57.9-35.2The [facility] CenterComment on above:Performed By: #### A1C #### [facility] [address] [place] [address] Dr. Gin Love (RBC) [Entitic vol]92.7 eAJmoxrz60.0-99.0The [facility] CenterComment on above:Performed By: #### A1C #### [facility] [address] [place] [address] Dr. Gin Reyes #0.7 103/ulNormal0.3-0.8The [facility] CenterComment on above:Performed By: #### A1C #### [facility] [address] [place] [address] Dr. Gin Mathiasocytes/100 WBC (Bld)6.5 %Normal1.7-12.0The [facility] Comment on above:Performed By: #### A1C #### [facility] [address] [place] [address] Dr. Gin Romero #6.5 103/ulNormal1.4-6.5The [facility] CenterComment on above:Performed By: #### A1C #### [facility] [address] [address] [address] Gin ChewNeutrophils/100 WBC (Bld)57.6 %Cokcsx40.0-75.0The [facility] CenterComment on above:Performed By: #### A1C #### [facility] [address] [address] [address] Gin ChewPlatelet mean volume (Bld) [Entitic vol]10.1 fLNormal9.5-13.5The [facility] CenterComment on above:Performed By: #### A1C #### [facility] [address] [place] [address] Dr. Gin ChewPLT349 103/bjStkxjl170-267Eal [facility] CenterComment on above: Performed By: #### A1C #### [facility] [address] [place] [address] Dr. Gin ChewRBC4.55 106/ulNormal4.20-5.40The [facility] CenterComment on above:Performed By: #### A1C #### [facility] [address] [place] [address] Dr. Gin ChewWBC11.3 103/ulCritically high4.0-11.0The [facility] CenterComment on above:Performed By: #### A1C #### [facility] [address] [place] [address] Dr. Gin ChewCT ABD/PELVIS WO CONon [id number] ABD/PELVIS WO CONEXAMINATION: CT ABD/PELVIS WO CON, [...] Electronically authenticated by: JEFF PATHAK Date: 2021-09-28 10:31[facility] HospitalPOINT OF CARE GLUCOSEon 34-53-5415Hyclqom [Mass/Vol]129 mg/dL Critically qcko76-619Xtm [facility] CenterComment on above:Performed By: #### FT3, CMP, LIPID, TSH #### [facility] [address] [place] [address] Dr. Gin ChewPROF 14(COMP METB)on 92-29-1061Sruywmd [Mass/Vol]3.7 g/dLNormal 3.4-5.0The [facility] on above:Performed By: #### FT3, CMP, LIPID, TSH #### [facility] [address] [place] [address] Dr. Gin ChewAlbumin/Globulin [Mass ratio]1.1 {ratio}NormalThe [facility] on above:Performed By: #### FT3, CMP, LIPID, TSH #### [facility] [address] [place] [address] Dr. Gin Cm [Catalytic activity/Vol]79 U/EKknzzl28-659Yve [facility] on above:Performed By: #### FT3, CMP, LIPID, TSH #### [facility] [address] [address] [address] Gin Vera [Catalytic activity/Vol]28 U/AEuvstr51-41She [facility] on above:Performed By: #### FT3, CMP, LIPID, TSH #### [facility] [address] [place] [address] Dr. Gin Hayes gap [Moles/Vol]9.9 mmol/LNormalThe [facility] HospitalComment on above:Performed By: #### FT3, CMP, LIPID, TSH #### [facility] [address] [address] [address] Gin ChewAST [Catalytic activity/Vol]15 U/FQcutvf84-74Zil [facility] CenterComment on above:Performed By: #### FT3, CMP, LIPID, TSH #### [facility] [address] [address] [address] Gin ChewBilirubin [Mass/Vol]0.3 mg/dLNormal0.2-1.0The [facility] Comment on above:Performed By: #### FT3, CMP, LIPID, TSH #### [facility] [address] [place] [address] Dr. Gin ChewCalcium [Mass/Vol]9.2 mg/dLNormal8.5-10.1The [facility] Comment on above:Performed By: #### FT3, CMP, LIPID, TSH #### [facility] [address] [address] [address] Gin ChewChloride [Moles/Vol]100 mmol/ZNforbz19-934Typ [facility] Comment on above:Performed By: #### FT3, CMP, LIPID, TSH #### [facility] [address] [address] [address] Gin ChewCO2 [Moles/Vol]32.1 mmol/LCritically high21.0-32.0The [facility] CenterComment on above:Performed By: #### FT3, CMP, LIPID, TSH #### [facility] [address] [place] [address] Dr. Gin ChewCreatinine [Mass/Vol]0.75 mg/dLNormal0.55-1.02The [facility] CenterComment on above:Performed By: #### FT3, CMP, LIPID, TSH #### [facility] [address] [place] [address] Dr. Greenfield ChangEGFR-AF SINGAPOREAN>60Normal>=60The [facility] CenterComment on above:Performed By: #### FT3, CMP, LIPID, TSH #### [facility] [address] [address] [address] Gin ReganGFR-NON AF SINGAPOREAN>60Normal>=60The [facility] CenterComment on above:Performed By: #### FT3, CMP, LIPID, TSH #### [facility] [address] [address] [address] Gin ChewGlobulin (S) [Mass/Vol]3.4 g/dLNormalThe [facility] CenterComment on above:Performed By: #### FT3, CMP, LIPID, TSH #### [facility] [address] [address] [address] Gin ChewGlucose [Mass/Vol]138 mg/dLCritically qtir83-216Vcu [facility] CenterComment on above:Performed By: #### FT3, CMP, LIPID, TSH #### [facility] [address] [place] [address] Dr. Gin ChewPotassium [Moles/Vol]4.0 mmol/LNormal3.5-5.1The [facility] Comment on above:Performed By: #### FT3, CMP, LIPID, TSH #### [facility] [address] [address] [address] Gin ChewProtein [Mass/Vol]7.1 g/dLNormal6.4-8.2The [facility] Comment on above:Performed By: #### FT3, CMP, LIPID, TSH #### [facility] [address] [address] [address] Gin ChewSodium [Moles/Vol]138 mmol/IBooyij526-181Ffv [facility] Comment on above:Performed By: #### FT3, CMP, LIPID, TSH #### [facility] [address] [place] [address] Dr. Gin ChewUrea nitrogen [Mass/Vol]17.0 mg/dLNormal7.0-18.0The [facility] CenterComment on above:Performed By: #### FT3, CMP, LIPID, TSH #### [facility] [address] [place] [address] Dr. Gin ChewUrea nitrogen/Creatinine [Mass ratio]22.7 mg/mgNoMartin Memorial HospitalComment on above:Performed By: #### FT3, CMP, LIPID, TSH #### [facility] [address] [place] [address] Dr. Gin ChewPROTIMEon 13-29-4738XLN Coag (PPP) [Relative time]0.94 {INR} NormalMercy Health – The Jewish HospitalComment on above:Performed By: #### BMP #### [facility] [address] [place] [address] Dr. Gin Victoria GUIDELINESSEE BELOWPremier Health Miami Valley HospitalComment on above:Result Comment: DESIRED INR: 2.0 - 3.0 CONDITIONS NOT LISTED BELOW 2.5 - 3.5 FOR PROSTHETIC HEART VALVE REPLACEMENT 2.5 - 3.5 RECURRENT THROMBOSIS Performed By: #### BMP #### [facility] [address] [place] [address] Dr. Gin ChewPT Coag (PPP) [Time]10.2 sNormal9.0-11.6The [facility] Comment on above:Performed By: #### BMP #### [facility] [address] [place] [address] Dr. Gin Jimenez [id number] Coag (Bld) [Time]26.9 mAucfca36.3-36.2[facility] HospitalComment on above:Performed By: #### BMP #### [facility] [address] [place] [address] Dr. Gin Quiroz, HIGH SENSITIVITYon 68-99-1525RKEPJN6.3 pg/mLNormal 4.0-51.3The [facility] CenterComveterans affairs medical center on above:Result Comment: CUT-OFF POINTS HAVE BEEN ESTABLISHED BASED ON THE FOURTH UNIVERSAL DEFINITIONS OF MYOCARDIAL INFARCTION. THE UPPER REFERENCE LIMIT (URL) OF TROPONIN, DEFINED THE 99TH PERCENTILE OF cTnI DISTRIBUTION IN A REFERENCE POPULATION, HAS BEEN CONFIRMED THE DECISION THRESHOLD FOR [place] DIAGNOSIS.Performed By: #### BMP #### [facility] [address] [place] [address] Dr. Yilan ChangXR CHEST 1 Von [id number] CHEST 1 VEXAMINATION: XR CHEST 1 V [...] Electronically authenticated by: JEFF PATHAK Date: 2021-09-28 09:20[facility] [id number] (ENDOMN) CANELO PATHAK ([id number]) 1965 F Date Time Provider Department 07/21/21 [...] to please [facility]. Allergies [...] mcg (5,000 unit) cap - Vitamin D [place] ([employer]) Take 1 capsule by mouth daily with food. - montelukast (SINGULAIR) 10 mg tablet Take 10 mg by mouth daily at bedtime. - MULTIVIT-MINERALS/FERROUS GLUC (CENTRAM-CARE ORAL) Take by mouth twice daily. - esomeprazole mag trihydrate(NEXIUM 40 MG CAP) Take one(1) capsule daily. - mometasone furoate(NASONEX 50 MCG/ACTUATION SPRAY) Koppel twice in each nostril once daily. - cetirizine hcl(ZYRTEC 10 MG TAB) Take one(1) tablet daily. - fluticasone/salmeterol(ADVAIR DISKUS 250 MCG-50 MCG/DOSE FOR INHALATION) Take one(1) inhalation twice daily; rinse and gargle mouth with water after each use. 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 Allergies As of Date: 06/22/2021 Noted Allergy [...] Fully Assessed Reason for Visit: Patient Question [9357] Prescriptions as of 05/10/2022 - levothyroxine (SYNTHROID) [...] daily. - mometasone furoate(NASONEX 50 MCG/ACTUATION SPRAY) Koppel twice in each nostril once daily. - [...] 12/16/2018 Encounter Status:Closed by NEEMA HIGGINBOTHAM on 05/10/22NoMiami Valley HospitalTal [id number] Visit (ENDOMN) CANELO PATHAK ([id number]) 1965 F Date Time Provider Department 06/16/21 1:20 PM ASAD ANSARI During your visit today, we recorded the following information about you: Pulse Blood pressure Weight 87/minute 168/97 128.7 kg Aracelis Rivers Ma 06/16/2021 12:23 PM Signed Thank you for choosing the [facility] Department of Endocrinology, Diabetes and Metabolism. Did you know that you need to call 48 hours in advance of your scheduled visit, if you are unable to make your appointment? The Endocrinology and Metabolism [place] thanks you for your commitment, because patients not showing to their appointment results in a lost opportunity for patients to receive [facility] health care at the [facility]. To Cancel an appointment, please choose one of the following: - Call the Appointment Call Center at [phone] - From [employer], Go to Appointments ? Cancel Appts If cancelling, consider your need to reschedule to prevent further delays in your care. To Schedule an appointment, please choose one of the following: - Call the Appointment Call Center at [phone] - From [employer], Go to Appointments ? Request an Appt Asad Ansari MD 06/16/2021 1:56 PM Signed Last Visit: This is the first visit. Ms. Pathak is here for follow up regarding her DM Type 2 and hypothyroidism. Current Immunizations: Most Recent Immunizations Administered Date(s) Administered COVID-19 vaccine, age 12+ yr ([employer] - PURPLE TOP) 09/23/2020 PHYSICAL EXAMINATION: BP [...] mouth daily before breakfast. - Vitamin D [place] ([employer]) Take 1 capsule by mouth daily with food. - montelukast (SINGULAIR) 10 mg tablet Take 10 mg by mouth daily at bedtime. - MULTIVIT-MINERALS/FERROUS GLUC (CENTRAM-CARE ORAL) Take by mouth twice daily. - esomeprazole mag trihydrate(NEXIUM 40 MG CAP) Take one(1) capsule daily. - mometasone furoate(NASONEX 50 MCG/ACTUATION SPRAY) Koppel twice in each nostril once daily. - [...] focal signs. No tremors. (more content not included)...Normal[facility] Metabolic Panelon [id number] [Mass/Vol]4.6 g/dL Normal3.9-4.9CGeorgetown Behavioral HospitalComment on above:Performed By: #### CMP, HBA1C, FREET3, FT4, TSH #### [address] [address] [place] [Catalytic activity/Vol]83 U/VAbtnmq01-412JywfpnhmqRegency Hospital Company on above:Performed By: #### CMP, HBA1C, FREET3, FT4, TSH #### [address] [address] VYY [Catalytic activity/Vol]28 U/LNormal7-38[facility] Health Systemment on above:Performed By: #### CMP, HBA1C, FREET3, FT4, TSH #### [address] [address] Jaqqu gap [Moles/Vol]12 mmol/LNormal9-18[facility] Comment on above:Performed By: #### CMP, HBA1C, FREET3, FT4, TSH #### [address] [address] KOO [Catalytic activity/Vol]25 U/XMvujcn56-28WrzobpbtwRegency Hospital Company on above:Performed By: #### CMP, HBA1C, FREET3, FT4, TSH #### [address] [id number] Pppovwzal [Mass/Vol]0.4 mg/dLNormal0.2-1.3Cleveltransylvania regional hospital [facility] [place] Comment on above:Performed By: #### CMP, HBA1C, FREET3, FT4, TSH #### [address] [address] Ciutdlt [Mass/Vol]10.0 mg/dLNormal8.5-10.2CGeorgetown Behavioral Hospital Comment on above:Performed By: #### CMP, HBA1C, FREET3, FT4, TSH #### [address] [address] Myhflykk [Moles/Vol]102 mmol/EXsximp15-047RegdozogtKettering Health Dayton Comment on above:Performed By: #### CMP, HBA1C, FREET3, FT4, TSH #### [address] [address] AF3 [Moles/Vol]27 mmol/CSegcow54-68WhhqbnyxnKettering Health DaytonComment on above:Performed By: #### CMP, HBA1C, FREET3, FT4, TSH #### [address] [address] Aoflvtbzkl [Mass/Vol]0.74 mg/dLNormal0.58-0.96[facility] DaytonComment on above:Performed By: #### CMP, HBA1C, FREET3, FT4, TSH #### [address] [address] iUIQ- Amer.>60NormalCGeorgetown Behavioral HospitalComment on above:Performed By: #### CMP, HBA1C, FREET3, FT4, TSH #### [address] [address] zKTN-All Other Races>60NormalCGeorgetown Behavioral HospitalComveterans affairs medical center on above:Result Comment: eGFR (Estimated GFR) Units [...] #### CMP, HBA1C, FREET3, FT4, TSH #### [facility] [address] [place], [place] [id number] [phone] [Mass/Vol]106 mg/aWEfka71-02EfaxsdqtsKettering Health Dayton Comment on above:Result Comment: The Citizen [place] Diabetes Association (ADA) provides guidance for cutoff [...] Standards of Medical Care in Diabetes 2016, Citizen [place] Diabetes Association. Diabetes Care. 2016.39(Suppl 1).Performed By: #### CMP, HBA1C, FREET3, FT4, TSH #### [facility] [address] [place], [place] [id number] [phone] [Moles/Vol]3.9 mmol/LNormal3.7-5.1CGeorgetown Behavioral HospitalComment on above:Performed By: #### CMP, HBA1C, FREET3, FT4, TSH #### [facility] [address] [place], [place] [id number] [phone] [Mass/Vol]7.2 g/dLNormal6.3-8.0[facility] Comment on above:Performed By: #### CMP, HBA1C, FREET3, FT4, TSH #### [address] [phone] [Moles/Vol]141 mmol/RDorboa233-380MmkxjtbrwKettering Health Dayton Comment on above:Performed By: #### CMP, HBA1C, FREET3, FT4, TSH #### [address] [phone] nitrogen [Mass/Vol]15 mg/dLNormal7-21[facility] Comment on above:Performed By: #### CMP, HBA1C, FREET3, FT4, TSH #### [address] [address] Vmae T3on 50-25-2602Phiy T3 [Mass/Vol]2.8 pg/mLNormal2.3-4.1 [facility] Health DaytonComment on above:Performed By: #### CMP, HBA1C, FREET3, FT4, TSH #### [address] [address] Lkcu T4on 57-35-7703Cykm T4 [Mass/Vol]2.0 ng/dLHigh0.9-1.7CMagruder Memorial Hospital on above:Performed By: #### CMP, HBA1C, FREET3, FT4, TSH #### [address] [place] [address] Kqhbqaxhdy A1con 45-61-8768Znxgaxk [Mass/Vol]169 mg/dLNormal [facility] on above:Result Comment: eAG: (Estimated average glucose) is a calculated value from HgbA1c and is field marketing representative of the average blood glucose level in the last 2-3 month period.Performed By: #### CMP, HBA1C, FREET3, FT4, TSH #### [address] [place] [address] HlO2h (Bld) [Mass fraction]7.5 %High4.3-5.6CMagruder Memorial Hospital on above:Result Comment: Citizen [place] Diabetes Association guidelines indicate that patients with HgbA1c in the range 5.7-6.4% are at increased risk for development of diabetes, and intervention by lifestyle modif ication may be beneficial. HgbA1c greater or equal to 6.5% is considered diagnostic of diabetes.Performed By: #### CMP, HBA1C, FREET3, FT4, TSH #### [facility] [address] [place], [place] [address] USYrz 92-11-7126SVG Qn2.200 m[IU]/LNormal0.270-4.200[facility] on above:Performed By: #### CMP, HBA1C, FREET3, FT4, TSH #### [facility] [address] [place], [place] [address] L[facility] BRAIN W WO CONTRASTon [id number] BRAIN W WO CONTRASTMRI BRAIN WITHOUT CONTRAST: CLINICAL HISTORY: G37.9 [employer] demyelinating disease (HCC) ICD10, multiple headaches , [...] Signed by: Briana Rosas MD 09/26/18 Final resultNormAdventHealth Porter Vital Signs Date TimeVital SignValuePerforming JoyyknklcGxdkxhwp18-80-4834 11:11-0400Body .1 cmDavisergio Dontrell DO Work Phone: [phone] [place], [place] [address]10-30-2025 11:11-0400 Body mass index (BMI) [Ratio]43.7 kg/h0Uevgg Dontrell DO Work Phone: [phone] [place], [place] [address]10-30-2025 11:11-0400 Body nfjrytgiomy26.5 [degF]Jeff Jon DO Work Phone: 1419)[address] [place], [place] 6311910-30-2025 11:11-0400 Body uakwon768.29 kgDavisergio Dontrell DO Work Phone: 1419)[address] [place], [place] 6311910-30-2025 11:11-0400 Diastolic blood qykcceac90 mm[Hg]Jeff Jon DO Work Phone: 1419)[address] [place], [place] 6311910-30-2025 11:11-0400 Heart rate79 /minDavid Dontrell DO Work Phone: 1(045)[address] [place], [place] 6311910-30-2025 11:11-0400 SaO2% (BldA) [Mass fraction]96 %Jeff Jon DO Work Phone: 1419)[address] [place], [place] 6311910-30-2025 11:11-0400 Systolic blood wowgumsa938 mm[Hg]Jeff Dontrell DO Work Phone: 1419)[address] [place], [place] 6311910-13-2025 11:50-0400 Body xbpihg733.1 cmDavisergio Dontrell DO Work Phone: 1419)[address] [place], [place] 6311910-13-2025 11:50-0400 Body mass index (BMI) [Ratio]43.7 kg/s8Jbmfb Dontrell DO Work Phone: 1419)[address] [place], [place] 6311910-13-2025 11:50-0400 Body ymrgpizfutq37.7 [degF]Jeff Jon DO Work Phone: 1(045)[address] [place], [place] 6311910-13-2025 11:50-0400 Body .29 kgDakorin Jon DO Work Phone: 1(556)[address] [place], [place] 6311910-13-2025 11:50-0400 Diastolic blood yxnqzwuq08 mm[Hg]Jeff Jon DO Work Phone: 1(375)[address] [place], [place] 631[address]10-13-2025 11:50-0400 Heart rate85 /minDavisergio Jon DO Work Phone: 1(485)[address] [place], [place] 6311910-13-2025 11:50-0400 SaO2% (BldA) [Mass fraction]99 %Jeff Jon DO Work Phone: 1(283)[address] [place], [place] 6311910-13-2025 11:50-0400 Systolic blood bjcbqgto185 mm[Hg]Jeff Jon DO Work Phone: 1(634)[address] [place], [place] 6311910-07-2025 11:15-0400 Diastolic blood vsqzerii09 mm[Hg]Jeff Jon DO Work Phone: 1(932)[address] [place], [place] 6311910-07-2025 11:15-0400 Systolic blood mm[Hg]Jeff Jon DO Work Phone: 1(527)[address] [place], [place] 6311910-07-2025 10:48-0400 Body xvfoln108.1 cmDakorin Jon DO Work Phone: 1(530)[address] [place], [place] 6311910-07-2025 10:48-0400 Body mass index (BMI) [Ratio]43.7 kg/l6Hwsrtkorin Jon DO Work Phone: 1(284)[address] [place], [place] 631[address]10-07-2025 10:48-0400 Body jsxehauihyh42.9 [degF]Jeff Jon DO Work Phone: 1(924)[address] [place], [place] 631[address]10-07-2025 10:48-0400 Body isrjjb531.29 kgDakorin Jon DO Work Phone: 1(581)[address]10-07-2025 10:48-0400 Heart rate90 /minDavid Girvin DO Work Phone: 1(191)[address] [place], [place] 631[address]10-07-2025 10:48-0400 SaO2% (BldA) [Mass fraction]97 %Jeff Jon DO Work Phone: 1(460)[address] [place], [place] 6311907-21-2025 09:40-0400 Diastolic blood vjqttoms88 mm[Hg]Jeff Jon DO Work Phone: 1(101)[address] [place], [place] 6311907-21-2025 09:40-0400 Systolic blood nfyphhwr348 mm[Hg]Jeff Jon DO Work Phone: 1(444)[address] [place], [place] 6311907-21-2025 09:37-0400 Body ehyjuo358.1 cmDavid Girvin DO Work Phone: 1(902)[address] [place], [place] 6311907-21-2025 09:37-0400 Body mass index (BMI) [Ratio]46.7 kg/q4Fadif Girvin DO Work Phone: 1(330)[address] [place], [place] [address]311907-21-2025 09:37-0400 Body damqwe554.45 kgDavid Girvin DO Work Phone: 1(047)[address] [place], [place] 6311907-21-2025 09:37-0400 Heart rate85 /minDavid Girvin DO Work Phone: 1(800)[address] [place], [place] [address]311907-21-2025 09:37-0400 Respiratory rate20 /minDavid Girvin DO Work Phone: 1(732)[address] [place], [place] 631[address]07-21-2025 09:37-0400 SaO2% (BldA) [Mass fraction]96 %Jeff Jon DO Work Phone: 1(195)[address] [place], [place] 6311907-10-2025 11:36-0400 Body vtleuk154.1 cmDavid Girvin DO Work Phone: 1(443)[address] [place], [place] 6311907-10-2025 11:36-0400 Body mass index (BMI) [Ratio]46.4 kg/k1Wdsng Girvin DO Work Phone: 1(801)[address]07-10-2025 11:36-0400 Body rtsicuuzbhx78.9 [degF]Jeff Jon DO Work Phone: 1(775)[address] [place], [place] 6311907-10-2025 11:36-0400 Body .55 kgDakorin Jon DO Work Phone: 1(606)[address] [place], [place] 6311907-10-2025 11:36-0400 Diastolic blood nkmnvrri47 mm[Hg]Jeff Jon DO Work Phone: 1(607)[address] [place], [place] 6311907-10-2025 11:36-0400 Heart rate90 /minDbalbina Jon DO Work Phone: 1(940)[address] [place], [place] 6311907-10-2025 11:36-0400 SaO2% (BldA) [Mass fraction]95 %Jeff Jon DO Work Phone: 1(532)[address] [place], [place] 6311907-10-2025 11:36-0400 Systolic blood zuslbwwb917 mm[Hg]Jeff Jon DO Work Phone: 1(191)[address] [place], [place] 6311904-21-2025 10:10-0400 Diastolic blood ituxhgxh157 mm[Hg]Jeff Jon DO Work Phone: 1(724)[address] [place], [place] 6311904-21-2025 10:10-0400 Systolic blood ogaubmfl045 mm[Hg]Jeff Jon DO Work Phone: 1(270)[address] [place], [place] 6311904-21-2025 10:05-0400 Body kcpyal787.1 cmDakorin Jon DO Work Phone: 1(217)[address] [place], [place] 6311904-21-2025 10:05-0400 Body mass index (BMI) [Ratio]45.7 kg/a0Shgszkorin Jon DO Work Phone: 1(889)[address] [place], [place] 6311904-21-2025 10:05-0400 Body jbwruznufjv13.9 [degF]Jeff Jon DO Work Phone: 1(122)[address] [place], [place] 6311904-21-2025 10:05-0400 Body zzipug029.73 kgDavisergio Shanevin DO Work Phone: 1(352)[address]04-21-2025 10:05-0400 Heart rate92 /Juanasergio Acostavin DO Work Phone: 1419)[address] [place], [place] [address]311904-21-2025 10:05-0400 Respiratory rate20 /minDkhaisergio Girvin DO Work Phone: 1419)[address] [place], [place] 6311904-21-2025 10:05-0400 SaO2% (BldA) [Mass fraction]96 %Jeff Dontrell DO Work Phone: 1419)[address] [place], [place] 6311904-14-2025 14:36-0400 Body gpxofp882.1 cmDavisergio Acostavin DO Work Phone: 1419)[address] [place], [place] 6311904-14-2025 14:36-0400 Body mass index (BMI) [Ratio]46.9 kg/e5Vftrl Dontrell DO Work Phone: 1419)[address] [place], [place] 6311904-14-2025 14:36-0400 Body ucakvionlom25.6 [degF]Jeff Acostacassi DO Work Phone: 1(266)[address] [place], [place] 6311904-14-2025 14:36-0400 Body edxtpg643.91 kgDakorin Shanevin DO Work Phone: 1(089)[address] [place], [place] 6311904-14-2025 14:36-0400 Diastolic blood mm[Hg]Jeff Jon DO Work Phone: 1419)[address] [place], [place] 6311904-14-2025 14:36-0400 Heart rate99 /Josué Shanevin DO Work Phone: 1419)[address] [place], [place] 6311904-14-2025 14:36-0400 Systolic blood skeveaan671 mm[Hg]Jeff Jon DO Work Phone: 1(375)[address] [place], [place] 6311903-14-2025 09:55-0400 Body pgqaxe981.1 cmDavisergio Shanevin DO Work Phone: 1(540)[address] [place], [place] 6311903-14-2025 09:55-0400 Body buuine421.73 kgDavid Dontrell DO Work Phone: [facility]02-26-2025 10:31-0500 Body fhveym579.1 [facility] 10:31-0500Body mass index (BMI) [Ratio]46 kg/y2IplccyxkuP[facility]02-26-2025 10:31-0500Body .64 kg[facility]01[facility]24-2025 11:14-0500Body oauwul319.1 cm[facility]01[facility]-2025 11:14-0500Body mass index (BMI) [Ratio]46 kg/y7MrylmcixjPike [facility] Hospital 06-13-2024 11:14-0500Body aomylsxhzfs48.8 [degF][facility]01-24-2025 11:14-0500Body .64 kg[facility] 06-13-2024 11:14-0500Diastolic blood xteurazq84 mm[Hg][facility]01-24-2025 11:14-0500Heart rate92 /[facility] 06-13-2024 11:14-7342UjW2% (BldA) [Mass fraction]94 %[facility]01-24-2025 11:14-0500Systolic blood veuumiwa756 mm[Hg][facility]01-14-2025 11:45-0500Body haziae426.81 kgP[facility]01-14-2025 11:45-0500Diastolic blood zmucznvb01 mm[Hg][facility]01-14-2025 11:45-0500Heart rate91 /[facility]01-14-2025 11:45-8367WwQ2% (BldA) [Mass fraction]97 %[facility]01-14-2025 11:45-0500Systolic blood tzmbyzbz765 mm[Hg] [facility]11-22-2024 11:52-0500Body .1 cm [facility]11-22-2024 11:52-0500Body mass index (BMI) [Ratio]45.1 kg/w7HlqcjaexxPike Community Hospital11-22-2024 11:52-0500Body .2 [degF][facility]11-22-2024 11:52-0500Body lzzyia198.92 kg[facility]11-22-2024 11:52-0500Diastolic blood rwwojitp10 mm[Hg][facility]11-22-2024 11:52-0500 Heart rate86 /[facility]11-22-2024 11:52-9776YfT4% (BldA) [Mass fraction]94 %[facility]11-22-2024 11:52-0500 Systolic blood mm[Hg][facility]11-06-2024 11:37-0500Body .1 cm[facility]11-06-2024 11:37-0500Body mass index (BMI) [Ratio]45.4 kg/x2FdywbpgfdPike Community Hospital11-06-2024 11:37-0500Body oyawecffcdd05.4 [degF][facility]11-06-2024 11:37-0500Body etdqqj548.83 kgP[facility]11-06-2024 11:37-0500Diastolic blood mpprcued05 mm[Hg][facility]11-06-2024 11:37-0500Heart rate78 /[facility]11-06-2024 11:37-0500Respiratory rate20 /[facility]11-06-2024 11:37-6789EsB9% (BldA) [Mass fraction]97 %[facility]11-06-2024 11:37-0500Systolic blood qxiwgegj489 mm[Hg][facility]09-24-2024 11:53-0400Diastolic blood tsioxest64 mm[Hg]DO Jeff Jon Work Phone: [facility]09-24-2024 11:53-0400 Heart rate83 /Emilie Jon Work Phone: [facility]09-24-2024 11:53-0400 SaO2% (BldA) [Mass fraction]97 %DO Jeff Jon Work Phone: 1(876)[address]09-24-2024 11:53-0400 Systolic blood hdpwwsgo024 mm[Hg]DO Jeff Jon Work Phone: 1(196)[address]08-26-2024 15:56-0400 Diastolic blood sadjqdjj01 mm[Hg]DO Jeff Shanecassi Work Phone: 1(046)[address]08-26-2024 15:56-0400 Heart rate82 /minDO Jeff Shanecassi Work Phone: 1(428)[address]08-26-2024 15:56-0400 SaO2% (BldA) [Mass fraction]97 %DO Jeff Jon Work Phone: 1(906)[address]08-26-2024 15:56-0400 Systolic blood babejsxk962 mm[Hg]DO Jeff Shanecassi Work Phone: 1(139)[address]07-31-2024 14:19-0400 Diastolic blood xdynfypc56 mm[Hg]DO Jeff Jon Work Phone: 1(583)[address]07-31-2024 14:19-0400 Heart pkqf874 /minDO Jeff Jon Work Phone: 1(689)[address]07-31-2024 14:19-0400 SaO2% (BldA) [Mass fraction]96 %DO Jeff Jon Work Phone: 1(402)[address]07-31-2024 14:19-0400 Systolic blood hsyfefcn305 mm[Hg]DO Jeff Jon Work Phone: 1(762)[address]07-17-2024 13:53-0400 Body .05 kg[facility]07-17[facility]2024 13:53-0400 Diastolic blood kmqzguro02 mm[Hg][facility]07-17-2024 13:53-0400Heart rate91 /minP[facility]07-17-2024 13:53-4560HtX1% (BldA) [Mass fraction]97 %[facility] 12-05-2023 13:53-0400Systolic blood wmsladdi940 mm[Hg][facility]06-10-2024 14:41-0400Body .1 cm[facility] 10-29-2023 14:41-0400Body mass index (BMI) [Ratio]45.7 kg/k7OuontffwqPike Community Hospital06-10-2024 14:41-0400Body izufwf242.73 kgP[facility]06-10-2024 14:41-0400Diastolic blood tysffeie90 mm[Hg][facility]06-10-2024 14:41-0400Heart rate87 /[facility]06-10-2024 14:41-0400Respiratory rate18 /[facility]06-10-2024 14:41-6575BrJ7% (BldA) [Mass fraction]97 %[facility]06-10-2024 14:41-0400Systolic blood zemycjsy386 mm[Hg] [facility]05-08-2024 14:12-0400Body iigizg944.1 cm [facility]05-08-2024 14:12-0400Body mass index (BMI) [Ratio]46 kg/j0DarhanirxPike Community Hospital05-08-2024 14:12-0400Body eepgetznpai62.1 [degF][facility]05-08-2024 14:12-0400Body cukwea840.64 kgP[facility]05-08-2024 14:12-0400Diastolic blood jyeqcnii89 mm[Hg][facility]05-08-2024 14:12-0400 SaO2% (BldA) [Mass fraction]95 %[facility]05-08-2024 14:12-0400Systolic blood vvkdwmiu008 mm[Hg][facility] 08-28-2023 11:23-0400Diastolic blood qyuaxlzc41 mm[Hg][facility]04-09-2024 11:23-0400Heart rate89 /[facility] 08-28-2023 11:23-8112GoK2% (BldA) [Mass fraction]98 %[facility]04-09-2024 11:23-0400Systolic blood lapgcnsf869 mm[Hg][facility]04-09-2024 10:49-0400Body heeyew433.1 cmP[facility]04-09-2024 10:49-0400Body mass index (BMI) [Ratio]45.7 kg/q2PcfqgejgfPike Community Hospital04-09-2024 10:49-0400Body fsqfxo702.73 kgP[facility]12-21-2023 14:10-0500Diastolic blood mm[Hg] Casper Nguyen [facility]12-21-2023 14:10-0500Heart rate81 /minBrajeffry Patrick [facility]12-21-2023 14:10-0500Mean blood mzxkofur679 mm[Hg]Casper Nguyen [facility]12-21-2023 14:10-0500 Respiratory rate14 /minBrajeffry Patrick [facility]12-21-2023 14:10-0500 Systolic blood mkhjynox480 mm[Hg]Casper Nguyen [facility]10-30-2023 14:00-0400Body wjxacj706.1 cmChristdanna Terrazas Other [employer] Other 10-30-2023 14:00-0400Body mass index (BMI) [Ratio] 45.09 kg/o0Szritxrazlb Mk Other [facility] Other 10-30-2023 14:00-0400Body jnfudsfoexb73.8 [degF] Christopher Mk Other [employer] Other 10-30-2023 14:00-0400Body qaamaw283.93 kgChristop Mk Other [employer] Other 10-30-2023 14:00-0400Respiratory rate20 /min Zenondanna Phillipsdano Other [employer] Other 10-30-2023 14:00-6191AvP4% (BldA) [Mass fraction]98 % Zenondanna Phillipsdano Other [employer] Other 10-05-2023 08:10-0400Body .1 cmDakorin Jon Other [employer] Other 10-05-2023 08:10-0400Body mass index (BMI) [Ratio] 45.26 kg/p1XgwclJeff Jon Other [employer] Other 10-05-2023 08:10-0400Body fpuwbclhumf19.8 [degF]Jeff Jon Other [employer] Other 10-05-2023 08:10-0400Body uqbgjx663.38 kgDakorin Jon Other [employer] Other 10-05-2023 08:10-0400Diastolic blood mm[Hg]Jeff Jon Other [employer] Other 10-05-2023 08:10-0400Respiratory rate18 /minDavisergio Jon Other [employer] Other 10-05-2023 08:10-2360XeP2% (BldA) [Mass fraction]99 % Jeff Jon Other 141.104.4903[employer] Other 10-05-2023 08:10-0400Systolic blood nooxzuyo761 mm[Hg] Jeff Jon Other [employer] Other 06-06-2023 16:50-0400Body yqjecs518.1 cmAmbkirby Manuel Other [employer] Other 06-06-2023 16:50-0400Body mass index (BMI) [Ratio] 45.09 kg/i9WjppnLacie Manuel Other [employer] Other 06-06-2023 16:50-0400Body [degF]Lacie Manuel Other [employer] Other 06-06-2023 16:50-0400Body jgnkjy118.93 kgLacie Manuel Other [facility] Other 06-06-2023 16:50-0400Diastolic blood rtgyvmet15 mm[Hg] Lacie Manuel Other [employer] Other 06-06-2023 16:50-0400Respiratory rate18 /minLacie Manuel Other [employer] Other 06-06-2023 16:50-1379QwP8% (BldA) [Mass fraction]95 % Lacie Manuel Other [employer] Other 06-06-2023 16:50-0400Systolic blood qlgcjfah387 mm[Hg] Lacie Manuel Other [employer] Other 05-30-2023 08:45-0400Body xdkmov395.1 cmChristopher Mk Other [employer] Other 05-30-2023 08:45-0400Body mass index (BMI) [Ratio] 44.76 kg/p1Pasfgrsojgm Mk Other [employer] Other 05-30-2023 08:45-0400Body dicvunljfpu60.8 [degF] Christopher Mk Other [employer] Other 05-30-2023 08:45-0400Body .02 kgChristopher Mk Other [employer] Other 05-30-2023 08:45-0400Diastolic blood qgvhdlih70 mm[Hg] Christopher Mk Other [employer] Other 05-30-2023 08:45-0400Respiratory rate20 /min Christopher Mk Other [employer] Other 05-30-2023 08:45-0307VdZ7% (BldA) [Mass fraction]98 % Christopher Mk Other [employer] Other 05-30-2023 08:45-0400Systolic blood ijuigrtd630 mm[Hg] Christopher Mk Other [employer] Other 04-26-2023 10:15-0400Body jlfogx625.1 cmChristopher Mk Other [employer] Other 04-26-2023 10:15-0400Body mass index (BMI) [Ratio] 43.43 kg/l4Mpfubdoytju Mk Other [employer] Other 04-26-2023 10:15-0400Body ffncciwmlmy12.8 [degF] Ryleyer Mk Other [employer] Other 04-26-2023 10:15-0400Body vzltep744.39 kgChristopher Mk Other [employer] Other 04-26-2023 10:15-0400Diastolic blood mm[Hg]Ryleyer Mk Other [employer] Other 04-26-2023 10:15-0400Respiratory rate20 /min Carlos Phillipsdano Other [employer] Other 04-26-2023 10:15-3824IcI3% (BldA) [Mass fraction]100 % Carlos Phillipsdano Other [employer] Other 04-26-2023 10:15-0400Systolic blood hixyetbv223 mm[Hg] Carlos Phillipsdano Other [employer] Other 03-24-2023 13:35-0400Body sgwkfe449.1 Ashley Manuel Other [employer] Other 03-24-2023 13:35-0400Body mass index (BMI) [Ratio] 26.62 kg/l8ErwzvLacie Manuel Other [employer] Other 03-24-2023 13:35-0400Body ikzlkuchmrf90.8 [degF]Lacie Manuel Other [employer] Other 03-24-2023 13:35-0400Body vgotgm90.58 kgAmbkirby Manuel Other [employer] Other 03-24-2023 13:35-0400Respiratory rate18 /minLacie Manuel Other [employer] Other 03-24-2023 13:35-1459SxY8% (BldA) [Mass fraction]98 % Lacie Manuel Other [employer] Other 02-22-2023 13:20-0500Body esydqn837.1 cmDakorin Jon Other [employer] Other 02-22-2023 13:20-0500Body mass index (BMI) [Ratio] 43.26 kg/s8Fzxtnkorin Jon Other [employer] Other 02-22-2023 13:20-0500Body yfsjajxgxik76.1 [degF]Jeff Jon Other [employer] Other 02-22-2023 13:20-0500Body cerbzc451.94 kgDakorin Jon Other [employer] Other 02-22-2023 13:20-0500Diastolic blood auhcgemj07 mm[Hg] Jeff Jon Other [employer] Other 02-22-2023 13:20-0500Respiratory rate18 /minDavisergio Jon Other [employer] Other 02-22-2023 13:20-4488MfW0% (BldA) [Mass fraction]99 % Jeff Jon Other [employer] Other [id number] 13:20-0500Systolic blood buscgzma795 mm[Hg] Jeff Jon Other [employer] Other 11-22-2022 13:40-0500Body xlxoll482.1 cmDakorin Jon Other [employer] Other 11-22-2022 13:40-0500Body mass index (BMI) [Ratio] 43.26 kg/i4KmodiJeff Jon Other [employer] Other 11-22-2022 13:40-0500Body vgqfuyaeyhh57.5 [degF]Jeff Jon Other [employer] Other 11-22-2022 13:40-0500Body ycuogq510.94 kgDakorin Jon Other [employer] Other 11-22-2022 13:40-0500Diastolic blood mm[Hg]Jeff Jon Other [employer] Other 11-22-2022 13:40-0500Respiratory rate18 /minDavisergio Jon Other [employer] Other 11-22-2022 13:40-1636VwC0% (BldA) [Mass fraction]98 % Jeff Jon Other [employer] Other 11-22-2022 13:40-0500Systolic blood bqqdubnf063 mm[Hg] Jeff Jon Other [employer] Other 07-19-2022 12:00-0400Body udelcp251.1 cmHeidi Jacky Other [employer] Other 07-19-2022 12:00-0400Body mass index (BMI) [Ratio] 45.09 kg/i9Bthkq Jacky Other [employer] Other 07-19-2022 12:00-0400Body cfsgqecsmhk72.9 [degF]Lorena Jacky Other [employer] Other 07-19-2022 12:00-0400Body upetxu240.93 kgHeidi Jacky Other [employer] Other 07-19-2022 12:00-0400Diastolic blood eqxfsrpx08 mm[Hg] Lorena Jacky Other [employer] Other 07-19-2022 12:00-0400Respiratory rate20 /minHeidi Jacky Other [employer] Other 07-19-2022 12:00-2646WkJ2% (BldA) [Mass fraction]99 % Lorena Jacky Other [employer] Other 07-19-2022 12:00-0400Systolic blood lvxymcdo677 mm[Hg] Lorena Jacky Other [employer] Other 06-02-2022 11:30-0400Body .1 cmDavid Dontrell Other [employer] Other 06-02-2022 11:30-0400Body mass index (BMI) [Ratio] 46.09 kg/z7KjhwbJeff Jon Other [employer] Other [id number] 11:30-0400Body hwzhdhpzsqa44.8 [degF]Jeff Jon Other [employer] Other 06-02-2022 11:30-0400Body .65 kgDakorin Jon Other [facility] Other 06-02-2022 11:30-0400Diastolic blood mm[Hg] Jeff Jon Other [employer] Other [id number] 11:30-0400Respiratory rate18 /minDbalbina Jon Other [employer] Other [id number] 11:30-1667FuD1% (BldA) [Mass fraction]96 % [facility] Other 06-02-2022 11:30-0400Systolic blood hvjaogcv739 mm[Hg] Jeff Jon Other [employer] Other [id number] 13:46-0400Body xcekyy517.83 kgLeena Seymour MD Work Phone: [facility]05-20-2022 13:46-0400Diastolic blood wyrwxhru62 mm[Hg]Leena Seymour MD Work Phone: [facility]05-20-2022 13:46-0400Heart rate94 /min Leena Seymour MD Work Phone: [facility]05-20-2022 13:46-0400Systolic blood hlqdpalu596 mm[Hg]Leena Seymour MD Work Phone: [facility]10-26-2021 13:40-0400Body bnlles440.1 cmDakorin Jon Other [employer] Other 10-26-2021 13:40-0400Body mass index (BMI) [Ratio] 45.51 kg/d5GzzvhJeff Jon Other [employer] Other 10-26-2021 13:40-0400Body xumvcjvqrjy60.7 [degF]Jeff Jon Other [employer] Other 10-26-2021 13:40-0400Body ckzijk042.06 kgDakorin Jon Other [employer] Other 10-26-2021 13:40-0400Diastolic blood fexwguui18 mm[Hg] Jeff Jno Other [employer] Other 10-26-2021 13:40-0400Respiratory rate20 /minDbalbina Jon Other [employer] Other 10-26-2021 13:40-8177FeU0% (BldA) [Mass fraction]98 % Jeff Jon Other [employer] Other 10-26-2021 13:40-0400Systolic blood adnjzhee473 mm[Hg] Jeff Jon Other [employer] Other 10-04-2021 11:00-0400Body bdfnif777.1 cmChristopher Mk Other [employer] Other 10-04-2021 11:00-0400Body mass index (BMI) [Ratio] 44.93 kg/l8Fqycfhnrqdh Mk Other [employer] Other 10-04-2021 11:00-0400Body devibmnolzf51.5 [degF] Carlos Phillipsdano Other [employer] Other 10-04-2021 11:00-0400Body .47 kgChristopher Mk Other [employer] Other 10-04-2021 11:00-0400Diastolic blood rvmctdgu27 mm[Hg] Carlos Phillipsdano Other [employer] Other 10-04-2021 11:00-0400Respiratory rate20 /min Carlos Terrazas Other [employer] Other 10-04-2021 11:00-6057PiB8% (BldA) [Mass fraction]99 % Carlos Terrazas Other [employer] Other 10-04-2021 11:00-0400Systolic blood vunhtrhk264 mm[Hg] Carlos Phillipsdano Other [employer] Other Encounters Encounter DateEncounter [facility] ProviderFacilityStart: 03-19-2025 End: 57-95-2933bixgkycjhbOfsur Girvin DO Work Phone: [facility] [place]: 03-19-2025 End: 91-38-1200Nnybshv encounter procedureJeff Jon DO-[facility] [place] Work Phone: Start: 03-02-2025 End: 96-42-7722ccqqomkbdvJkpho Girvin DO Work Phone: [facility] Work Phone: Start: 03-02-2025 End: 88-36-7699Smtmyom encounter procedureDakorin Lilli Acostacassi DO-[facility] Work Phone: Start: 02-24-2025 End: 34-99-3625rkjwswghwgZfeyf Gircassi DO Work Phone: [facility] Work Phone: Start: 02-24-2025 End: 91-44-8466Rdsbatp encounter procedureDavisergio Reeder Dontrell BETH-[facility] Work Phone: Start: 02-09-2025 End: 35-02-6668aixfbvfgzwEKADYR [facility] Start: 86-68-5909Nmb-patient / Non-visitGeormalissa Espino MD-[facility] Work Phone: Start: 01-08-2025 End: 45-23-5049kywuaoobfyDUPP [facility]art: 60-70-0699Rmj-patient / Non-visitGeormalissa Espino MD-[facility] Work Phone: Start: 01-05-2025 End: 92-74-7083hftvpunqvfDALXXQ [facility] Start: 12-08-2024 End: 35-57-5771ehqdtnrgiaSebzh Girvin DO Work Phone: [facility] Work Phone: Start: 12-08-2024 End: 34-91-0844Lcxioxe encounter procedureLorena Moore APRN [facility] Work Phone: Start: 11-27-2024 End: 56-65-1348njpksrdytzDmnhh Girvin DO Work Phone: [facility] Work Phone: Start: 11-27-2024 End: 89-72-3988Eaakaci encounter procedureDavid C Gircassi DO-[facility] [place] Work Phone: Start: 11-26-2024 End: 29-62-9047ujwrszvzbrHcqcx GirvinFacility:[facility] Start: 05-52-6730Srw-patient / Non-visitDavid C Dontrell DO-[facility] Work Phone: Start: 28-84-1823Euw-patient / Non-visitDavid C Gircassi DO-[facility] Work Phone: Start: 10-24-2024 End: 54-60-4218qmwfyuatjgVvfuk Girvin DO Work Phone: [facility] Work Phone: Start: 10-24-2024 End: 47-91-1599Poxgeor encounter procedureDavid Girvin DO Work Phone: [facility] Physician Group-[facility] Family Medicine [place] Work Phone: Start: 09-08-2024 End: 64-95-1169xtzxcjngdnKimnw Girvin DO Work Phone: [facility] Work Phone: Start: 09-08-2024 End: 64-50-0904Jqmwlpl encounter procedureDavid Girvin DO Work Phone: [facility] Physician Group-[facility] Pulmonary Work Phone: Start: 63-76-5808Wvz-patient / Non-visitDavid Girvin DO Work Phone: [facility] Work Phone: Start: 09-01-2024 End: 44-02-2728zvcmsxrjqkJgzkh Girvin DO Work Phone: [facility] Work Phone: Start: 09-01-2024 End: 68-36-8836Wnxwutz encounter procedureDavid Girvin DO Work Phone: [facility] Physician Group-[facility] Work Phone: Start: 08-25-2024 End: 32-56-9331wcyppoolazLIETHJ [facility] Start: 56-88-9581Aqg-patient / Non-visitDavid Girvin DO Work Phone: [facility] GroupFrancisc[facility] Work Phone: Start: 43-30-7105Szg-patient / Non-visitDavid Girvin DO Work Phone: [facility] GroupFranc[facility] Work Phone: Start: 08-01-2024 End: 35-39-5656hgqnxyxvqgJgywl Girvin DO Work Phone: [facility] Work Phone: Start: 08-01-2024 End: 85-49-5184Ykyvqrui ReferredDavid Girvin DO Work Phone: [facility]-Dig[facility] Work Phone: Start: 07-30-2024 End: 31-04-8019Tqijzpz encounter procedureDavid Girvin DO Work Phone: [facility]-CT Scan [place] Work Phone: Start: 07-30-2024 End: 46-72-0154uogvxwmpqsEfzkh Girvin DO Work Phone: [facility] Work Phone: Start: 07-16-2024 End: 27-20-2912vtozhklvnnEngqmrzvg [facility] Work Phone: Start: 07-16-2024 End: 04-30-8570Zuvqigg encounter procedureNov[facility] Gastro Work Phone: Start: 42-52-1293icxcoexfqsQcpsqkxpySelect [facility] [place] Work Phone: Start: 48-62-2764Zil-patient / Non-visitFirtucsons Physician Group-[facility] Work Phone: Start: 06-13-2024 End: 47-71-6155yukxbawyjrFwbovygbdSelect Medical [facility] Work Phone: Start: 06-13-2024 End: 26-38-6891Lovirrd encounter procedureNov[facility] Family Medicine [place] Work Phone: Start: 06-03-2024 End: 37-08-1316wmruvfgvsaWkkdfxzuzSelect Medical [facility] Work Phone: Start: 06-03-2024 End: 90-11-8483Cqgshkb encounter procedureNov[facility] Pain Mgmt Work Phone: Start: 04-11-2024 End: 42-66-7268Eepcmyg encounter procedureNov[facility] Family Medicine [place] Work Phone: Start: 03-26-2024 End: 79-43-7215uhpxxwiwacUjlrieeowSelect [facility] Work Phone: Start: 03-26-2024 End: 46-53-8607Xxbdjbm encounter procedureNov[facility] Work Phone: Start: 25-60-4470Xjt-patient / Non-visitNovant Health [facility] Work Phone: Start: 02-12-2024 End: 03-85-6262vnkmaqbborXI David Girvin Work Phone: [facility] Work Phone: Start: 02-12-2024 End: 77-64-2119Ivfitep encounter procedureDO Jeff Jon Work Phone: [facility] Pain Management Work Phone: Start: 02-05-2024 End: 17-37-2290fsmmpdweucOV David Girvin Work Phone: [facility] Work Phone: Start: 02-05-2024 End: 01-58-3644Nqtceag encounter procedureDO Jeff Jon Work Phone: [facility] Work Phone: Start: 88-15-3685Nxo-patient / Non-visitDO Jeff Jon Work Phone: [facility] Work Phone: Start: 66-37-3850cfaxcvnznlRbcazShahzad Jon DO [facility] 01-14-2024 End: 60-94-4593hglzsodwvlFX David Girvin Work Phone: [facility] Work Phone: Start: 01-14-2024 End: 90-38-0345Ipscoyl encounter procedureDO Jeff Jon Work Phone: [facility] Work Phone: Start: 87-08-8126fmnsqjooduNosldShahzad Jon DO [facility]: 21-94-3733Vso-patient / Non-visitDO Jeff Jon Work Phone: [facility] Work Phone: Start: 12-27-2023 End: 36-90-6498quyjgahpyhVB Jeff Jon Work Phone: [facility] Work Phone: Start: 12-27-2023 End: 9932Jtfedgh encounter procedureDO Jeff Jon Work Phone: [facility] Work Phone: Start: 12-19-2023 End: 80-22-0743jvdmeespvhBE Jeff Jon Work Phone: [facility] Work Phone: Start: 12-19-2023 End: 86-94-7035Ikmlrvi encounter procedureDO Jeff Jon Work Phone: [facility] Pain Management Work Phone: Start: 98-28-0808bcvmmqweepNmanl Clark Girvin DO [facility]: 12-12-2023 End: 97-54-8956sfvimnrlwmOhtbe Clark Girvin DOFacility:[facility]Start: 12-05-2023 End: 76-86-5852izbyonxyrmZVVera Jon Work Phone: [facility] Work Phone: Start: 12-05-2023 End: 23-75-1149Rqbvamb encounter procedureIvettmountain view regional medical [facility] Phys[facility] Pain Management Work Phone: Start: 10-29-2023 End: 03-89-8030zbyivgxedhOfeirrblnCleveland Clinic [facility] Work Phone: Start: 10-29-2023 End: 14-41-7558Rfqeqqi encounter procedureSpike Physician Group-[facility] Family Medicine [place] Work Phone: Start: 39-26-4534Cyq-patient / Non-visitSpike Physician Group-[facility] Work Phone: Start: 10-23-2023 End: 43-66-7192xyalnoxwfbVIIMLB Ulises JIANGNot AvailableStart: 10-09-2023 End: 69-95-9739Jznknfudj Result EncounterHijose Jiang MD Work Phone: noms External Department UnsolicitedStart: 10-09-2023 End: 75-36-0971Cfnkltuxe Result EncounterHijose Jiang MD Work Phone: noms External Department UnsolicitedStart: 09-26-2023 End: 86-66-4528appmvbcehzYvsfoxdosCleveland Clinic [facility] Work Phone: Start: 09-26-2023 End: 84-26-7706Qoaelpr encounter procedureNov[facility] Health [facility] Phys[facility] GroupJ[facility] Work Phone: Start: 09-24-2023 End: 61-59-4442prwdvfknwtEXUUVO H TIMMISNot AvailableStart: 09-18-2023 End: 77-80-6467fxwnyvilagMNKKROX A SAMANTHANot AvailableStart: 09-05-2023 End: 43-12-7217gqpfcfkkimOCWPBF H TIMMISNot AvailableStart: 09-04-2023 End: 78-19-8217Znfobswbz Result EncounterHilary Ulises Jiang MD Work Phone: noms External Department UnsolicitedStart: 09-04-2023 End: 62-52-8605Inojchbty Result EncounterHilary Ulises Jiang MD Work Phone: noms External Department UnsolicitedStart: 08-28-2023 End: 49-65-0345vbugabuujsNtjoqfbfpCleveland Clinic [facility] Work Phone: Start: 08-28-2023 End: 86-53-6100Ussnoqf encounter procedureNov[facility] Physician GroupJama[facility] Work Phone: Start: 57-26-0546Xgm-patient / Non-visitNovant Health [facility] Work Phone: Start: 08-21-2023 End: 41-01-5729vbhzgtomiqPBOFLA H TIMMISNot AvailableStart: 06-29-2023 End: 82-75-5704erfhbhxcufCubpu Girvin Other [facility] Other Start: 21-99-8606Xkvqivcdi encounterDakorin EpsteinG [facility] Hospitaltart: 05-10-2023 End: 68-87-7669bhevknlcfmPXVera NguyenFacility:FTMCStart: 05-10-2023 End: 60-86-2002Yxze Hilton Nguyen [facility] Start: 04-30-2023 End: 42-75-2314qfgqmevqdoTMYW D HILLSNot AvailableStart: 04-24-2023 End: 03-71-9915uctxucaxvoFXJH D HILLSNot AvailableStart: 04-18-2023 End: 85-96-7928ugaazrrhueISQT D HILLSNot AvailableStart: 04-04-2023 End: 41-59-7372ulpspmuqsgQiuxr Girvin Other [employer] Other Start: 19-96-4852Gsgbttwow encounterDavid DontrellTisha Family Medicine BellevueStart: 03-19-2023 End: 67-15-9977lmedqufphaOvxfqdjqwql Mk Other [facility] [employer] Other Start: 17-47-1128Rbflhu outpatient visit 15 minutes Carlos Valle Pulmonary DiseaseStart: 02-22-2023 End: 72-75-8960clnwnrtmrdIsjtz Dontrell Other [place] [employer] Other Start: 41-93-2500Vdygoh outpatient visit 25 minutes Jeff Aragon [facility] [place]vueStart: 11-24-2022 End: 18-68-6705vnwoauaahmQmxcm Dontrell Other [place] [employer] Other Start: 91-00-2627Zpccsvnyq encounterDavid DontrellTisha Family Medicine BellevueStart: 10-24-2022 End: 04-49-1885prcggbmtyuEriic Keller Other noEnish [employer] Other Start: 00-88-6391Xvievx outpatient visit 15 minutes [facility]ie [facility] ClydeStart: 10-17-2022 End: 22-49-7639isyspekfodPpfkpiaewli Mk Other [facility] [employer] Other Start: 58-78-3685Vnkgqc outpatient visit 15 minutes Christopher ViviannoFPG Pulmonary DiseaseStart: 43-99-8946ippjfbjogdKyGris Garcestoshia TraboulssiFacility:[address]Xmids: 93-83-4370Ppqtmot encounter procedureDavisergio Jon Work Phone: [phone]-Gsqmf [facility] [address] DO Work Phone: Start: 44-30-3390vjdlukuxeoVl. David Clark Girvin Facility:[id number]: 60-03-5414Qlhhouvau for other preprocedural examination [facility] HospitalStart: 93-36-8482Amxaagjus for preprocedural cardiovascular examinationHIALRY [facility] Southtart: 09-14-2022 Encounter for preprocedural laboratory examinationHIALRY [facility] Southtart: 93-81-0625Pbhvkxanh for preprocedural respiratory examination [facility]tart: 09-13-2022 End: 29-21-1561svumpebkanAjhunrwgobu Mk Other [facility] [employer] Other Start: 10-91-6343Qztuar outpatient visit 25 minutes Christopher Leonard Pulmonary DiseaseStart: 87-98-7660zqqzbplezhRB DAVID GIRVINFacility:L9Qysln: 09-08-2022 End: 79-79-2686Lnokkpmsx for preprocedural laboratory examinationDR JEFF JON Facility:I0Tvkew: 09-08-2022 End: 82-71-5844flleidtfajDJ JEFF Priestced[facility] [employer] Other Start: 29-22-3639Uievtjzbl encounterDavid GircassiFPG [facility] [place]Start: 09-01-2022 End: 59-99-8143nqaodaafzhPcjdh Dontrell Other [employer] Other Start: 54-67-7485Rdarsaibk encounterDavid GircassiFPG [facility] [place]vueStart: 08-21-2022 End: 61-10-9798vexeukyfxgGYJRJCG M MANONFacility:Q4Iylmr: 08-18-2022 End: 37-66-2783vlxejcltawFiGris Coleman SQMOS Other Start: 53-94-3205Vurzdszxx encounterDavid GircassiFPG [facility] [place]Start: 08-17-2022 End: 92-64-5503xnaofirwghFOMUDQ DIAB .Facility:A0Mvdjp: 08-14-2022 End: 58-14-1298rtqjwalwztLtgqa Dontrell Other [employer] Other Start: 17-91-3963Krnjvcpfu encounterDavid GircassiG Family Medicine [place]vueStart: 08-11-2022 End: 05-94-5283mvmqbqspkgBbhsp Dontrell Other [employer] Other Start: 24-58-2705Hqbcfe outpatient visit 15 minutes Lacie KalebHON[facility] Ur[facility] Care ClydeStart: 72-61-8291Cnlulkzmo encounterDavid GircassiFPG [facility] [place]Start: 08-07-2022 End: 90-55-8586kaaqbbmurhZkjbj Gircassi Other [employer] Other Start: 78-78-4483Scrijroad encounterDavid GirvinFPG Family Medicine [place]vueStart: 07-12-2022 End: 58-45-6084veecssjdhgBrekw Dontrell Other [employer] Other Start: 58-49-0981Qjroqm outpatient visit 25 minutes Jeff Aragon [facility] [place]vueStart: 79-59-9947Ourhjrlcm encounter Jeff EpsteinTisha Family Medicine [place]vueStart: 07-10-2022 End: 34-22-1443gznvpzopctVJ DAVID GIRVINFacility:D3Ordme: 06-14-2022 End: 08-63-2325pnsxfvibxdVmdkk Dontrell Other [employer] Other Start: 88-05-9589Rmcuxmhlr encounterDakorin Aragon [facility] [place]vueStart: 06-07-2022 End: 17-64-5353oboxnklbugTyzaz Dontrell Other [employer] Other Start: 22-30-4113Nufmmcqpc encounterDakorin JonANNELTisha [facility] [place]vueStart: 04-11-2022 End: 77-51-6821jumfinktbjIempt Dontrell Other [employer] Other Start: 13-32-6036Rgfpco outpatient visit 25 minutes Jeff Aragon [facility] [place]Start: 04-05-2022 End: 79-89-9536hsflnhiucaSXMohsen Slaterity:I4Olcoi: 04-04-2022 End: 10-64-6032qtpeonosndLuhuy Dontrell Other [employer] Other Start: 53-64-2948Cqfvghvby encounterDakorin JonANNELTisha [facility] [place]Start: 04-03-2022 End: 78-26-3673vlbacumsmqRvusw Dontrell Other [employer] Other Start: 17-55-6850Eblxolnex encounterDakorin JonANNELTisha [facility] [place]vueStart: 03-21-2022 End: 06-78-2214glidgmjomgUmpbq Dontrell Other [facility] [employer] Other Start: 34-40-7049Btxfpolei encounterDavid Margo [facility] [place]Start: 12-09-2021 End: 96-76-4767njdbchcvhvZsqxr Girvin Other [facility] [employer] Other Start: 22-30-2602Socsisymm encounterDavid LucianG [facility] [place]Start: 12-06-2021 End: 11-63-0593rmajbejnxlAcyqo Jacky Other [facility] [employer] Other Start: 61-43-9897Jwqmju outpatient visit 25 minutes Lorena GastFPG Pulmonary DiseaseStart: 64-18-2705Uosyfrnna encounterHeidi GastFPG Pulmonary DiseaseStart: 11-29-2021 End: 87-78-1736lxmegohpxdDA JEFF Laicility:R1Rfzfj: 10-20-2021 End: 35-43-2367vbzbhrmvfqRxnzs Girvin Other [facility] [employer] Other Start: 28-19-2737Xuleny outpatient visit 25 minutes Jeff Aragon [facility] [place]Start: 10-13-2021 End: 32-94-8249mndvrpmzhoJEEEP CLARK GIRVINFacility:[facility] Start: 10-13-2021 End: 56-34-7018ketccvvcqfSuadq Chhay APRN.MANAGER COMPLETIONS Work Phone: EndocrinologyComment on above:Type 2 diabetes mellitus with hyperglycemia, without long-term current use of insulin (HCC) (Primary Dx); Heraclio's diseaseStart: 10-13-2021 End: 09-27-3842Txbtxpdpgufj consultation with Agustin Jimenez APRN.MANAGER COMPLETIONS Work Phone: CC CHRIS FHtart: 80-77-9731Swmlrdgqm encounterPuttimoeto Jimenez APRN.CNP Work Phone: EndocrinologyComment on above:AppointmentStart: 10-07-2021 End: 32-27-3642unbwnelwbvMVDIU CLARK GIRVINFacility:[facility] Start: 10-07-2021 End: 91-14-6531Uywrolr encounter Shan Seymour MD Work Phone: RheumatologyComment on above:Fibromyalgia (Primary Dx); ALDEN (generalized anxiety disorder)Start: 49-89-8196Stjjzsxcy encounterAsad Ansari MD Work Phone: EndocrinologyComment on above:Lab OrdersStart: 95-76-9945iawfpcyrugCDMohsen Laicility:S0Jlryy: 44-28-9454Jryfassol encounterDavisergio Aragon [facility] BellueStart: 09-28-2021 End: 91-96-5328diweekpkqxFDPaige Priestcedar county memorial hospital [employer] Other Start: 09-20-2021 End: 30-31-2672ewajnygexfEzzkajujfoq Mk Other [employer] Other Start: 50-10-9151Phnugwilz encounterChristopher AvendanoFPG Pulmonary DiseaseStart: 08-22-2021 End: 74-23-6298mkvjzxdtqsBshlcsrcqdi Mk Other [employer] Other Start: 72-01-8172Eidqlujsl encounterDavisergio Aragon [facility] BellueStart: 07-22-2021 End: 06-83-8578slouxgmlddGYTHS SKUGORFacility:[facility]tart: 07-14-2021 End: 80-54-4584hhepqwijznMwudx Girvin Other [employer] Other Start: 99-30-6120Riaexpmto encounterDavid Margo [facility] [place]Start: 07-04-2021 End: 21-34-2260pfbhyytfsgGzfox Girvin Other noEnish [employer] Other Start: 16-42-1165Fszehzqlq encounterDavid Margo [facility] [place]Start: 06-28-2021 End: 54-13-7147wiuqpphdnyMowgq Girvin Other [facility] [employer] Other Start: 31-79-2307Jkypbppxd encounterDavid DontrellFPG Family Medicine [place]Start: 76-13-4740Adtaikjco encounterAsad Ansari MD Work Phone: EndocrinologyComment on above:Patient QuestionStart: 06-16-2021 End: 76-24-9218guoyjdqjjnXETIV CLARK GIRVINFacility:[facility] Start: 06-16-2021 End: 81-65-6801yhybwzfrqcQRUTO SKUGORFacility:[facility]tart: 05-25-2021 End: 77-18-2241vwaxqwwfaiIwajl Girvin Other [facility] [employer] Other Start: 57-26-5169Unbydynyp encounterDavid DontrellFPG [facility] [place]Start: 05-11-2021 End: 04-56-3216zhmvsplgbaKwdfg Girvin Other [facility] [employer] Other Start: 49-43-1545Aqhghknlo encounterDavid DontrellFPG [facility] [place]Start: 04-27-2021 End: 96-63-9228laxjjciecrMrbro Girvin Other noEnish [employer] Other Start: 46-42-2869Govviphxl encounterDavid DontrellFPG [facility] [place]Start: 04-19-2021 End: 59-41-4263bshcmcorrwQmtyzr Cundiff Other [place] [employer] Other Start: 60-08-9616Aepeglttn encounterCarl Valdivia [facility] Care ClinicStart: 89-10-2793Uowuvbayt encounterDakarlos Julian [facility] Care ClinicStart: 45-48-9167Nptief outpatient visit 15 minutesDavisergio Aragon [facility] [place]vueStart: 26-10-1300Nxqrpvojj encounterDavisergio Aragon [facility] BellueStart: 25-94-7796Cxhlfd outpatient visit 15 minutesChristopher AvendanoFPG Pulmonary DiseaseStart: 09-26-2018 End: 90-83-3387Enenifi encounter procedureDAKORIN Reeder [facility] Procedures DateProcedureProcedure DetailPerforming ClinicianStart: 35-05-7250Pnsatowq tomography of abdomen and pelvis with contrastDakorin Jon DO Work Phone: Start: 90-22-0588X-ray of lumbar spine, four viewsDO Jeff Jon Work Phone: Start: 38-76-5968Erlgy x-ray of pelvis and lower extremityDO Jeff Jon Work Phone: Start: 36-50-2015ZJE HEAD/BRAIN WO/W CONTRJennie Jiang MD Work Phone: Start: 92-14-4592Xs orbit sella/post fossa/ear w/contrast matrlHijose Jiang MD Work Phone: Start: 95-40-3849Tzexq depression screening assessment Leena Seymour MD Work Phone: Start: 33-24-3080Gsc brain brain stem w/o w/contrast materialDAVID DONTRELLAbdominal hysterectomyCasper Nguyen cholecystectomyCasper Nguyen laparoscopyCasper Nguyen Myringotomy and insertion of T tubeCasper Nguyen comment on above:d3PegvlufzrqdibPjpspfwm Jones Plan of Treatment DateCare ActivityDetailAuthorStart: 46-29-5851Yycoh [facility] Campustart: 43-17-6351ZllwfxdvedcotzunuopygktrptYF EGD/Colonoscopy (Not Applicable)[facility] Systemtart: 70-87-2989Fhspmia referral [facility] Work Phone: Start: 25-40-7905ZESKSBYY SCREENDIABETES SCREEN [facility]: 78-55-3940Gsdglqo [facility] Work Phone: Start: 00-59-5093Uvaeukw [facility] Work Phone: Start: 30-74-3505Snrff depression screening assessment DEPRESSION SCREENINGSt. Elizabeth Hospitaltart: 47-34-4426Qwklcksynu A1c/Hemoglobin.total in FztuxMHZ9XQgncbjozj ClinicStart: 47-34-0765Zouaxrowy vaccinationINFLUENZA (#1)[facility]tart: 11-25-2021 End: 55-75-6407M7 FREE BLDT3 FREE BLD Lab Routine Heraclio's disease Expected: 11/25/2021, Expires: 01/25/2022[facility] Work Phone: Comment on above:Expected: 11/25/2021, Expires: 01/25/2022tart: 11-25-2021 End: 36-38-6800M2 FREE/FREE THYROXT4 FREE/FREE THYROX Lab Routine Heraclio's disease Expected: 11/25/2021, Expires: 01/25/2022[facility] Work Phone: Comment on above:Expected: 11/25/2021, Expires: 01/25/2022tart: 11-25-2021 End: 44-80-5965Cngsmlwvlhh [Units/volume] in Serum or PlasmaTSH BLD Lab Routine Heraclio's disease Expected: 11/25/2021, Expires: 01/25/2022[facility] Work Phone: Comment on above:Expected: 11/25/2021, Expires: 01/25/2022tart: 10-07-2021 End: 62-29-4465MBYCQHA ELECTROPHORESIS SERUM W[facility] Work Phone: Comment on above:Expected: 10/07/2021, Expires: 12/07/2021tart: 10-05-2021 End: 27-87-6775Qjttbvmprcrmm metabolic 2000 panel - Serum or PlasmaCOMP METABOLIC PANEL Lab Routine Controlled type 2 diabetes mellitus without complication, without long-term current use of insulin (HCC) Expected: 10/05/2021, Expires: 12/05/2021[facility] Work Phone: Comment on above:Expected: 10/05/2021, Expires: 12/05/2021tart: 10-05-2021 End: 29-93-0941Evsreliuuo A1c/Hemoglobin.total in BloodHGB A1C Lab Routine Controlled type 2 diabetes mellitus without complication, without long-term curr ent use of insulin (HCC) Expected: 10/05/2021, Expires: 12/05/2021[facility] Work Phone: Comment on above:Expected: 10/05/2021, Expires: 12/05/2021tart: 10-05-2021 End: 51-04-2587E1 FREE BLDT3 FREE BLD Lab Routine Acquired hypothyroidism Expected: 10/05/2021, Expires: [address] [place] [address] Work Phone: Comshmu on above:Expected: 10/05/2021, Expires: 12/05/2021tart: 10-05-2021 End: 09-37-3060H6 FREE/FREE THYROXT4 FREE/FREE THYROX Lab Routine Acquired hypothyroidism Expected: 10/05/2021, Expires: [address] [place] [address] Work Phone: Comment on above:Expected: 10/05/2021, Expires: 12/05/2021tart: 10-05-2021 End: 33-22-2904Aujiagrrjaw [Units/volume] in Serum or PlasmaTSH BLD Lab Routine Acquired hypothyroidism Expected: 10/05/2021, [facility] Work Phone: Comment on above:Expected: 10/05/2021, Expires: 12/05/2021tart: 45-87-2500KNZLJPFYZW ASSESSMENTDEPRESSION ASSESSMENTSt. Elizabeth Hospitaltart: 88-99-6440TLEWN-19 VACCINE (3 - Booster for Pfizer series)COVID-19 VACCINE (3 - Booster for Pfizer series)[facility]: 55-52-4135JQHQS-19 VACCINE (3 - Booster for Pfizer series)COVID-19 VACCINE (3 - Booster for Pfizer series)[facility]: 45-63-7816FNKOJYSR VACCINE (1 of 2)SHINGRIX VACCINE (1 of 2)[facility]: 15-39-1763TITPFHCRH (FIT-DNA)COLOGUARD (FIT-DNA)[facility]art: 55-15-0841JgdschegaetUMTVBKWMGHZHuoogvnjj Clinic Start: 99-82-4795GIXHVHZSZG CANCER SCREENINGCOLORECTAL CANCER SCREENINGCleCleveland Clinic Fairview Hospitaltart: 93-27-5090QU COLONOGRAPHYCT COLONOGRAPHYSt. Elizabeth Hospitaltart: 91-70-3638ESBIY OCCULT BLOODFECAL OCCULT BLOODSt. Elizabeth Hospitaltart: 09-10-2012 LIPID SCREENLIPID SCREENCleCleveland Clinic Fairview Hospitaltart: 33-72-6268PRVUOTKWQUETT SIGMOIDOSCOPYCleCleveland Clinic Fairview Hospitaltart: 99-07-4358MnelajunfgxVOPMSLNNQEfzzftjvi ClinicStart: 06-12-9105LOZ TESTINGHPV TESTINGCleCleveland Clinic Fairview Hospitaltart: 09-10-1988 PAP TESTINGPAP TESTINGCleCleveland Clinic Fairview Hospitaltart: 54-48-5140ERBBAZUSR B (1 of 3 - Risk 3-dose series)HEPATITIS B (1 of 3 - Risk 3-dose series)[facility] Start: 30-69-3888Tcsyj microalbumin profileDTAP,TDAP,TD (1 - Tdap)[facility]: 79-19-6376QJQNQE PCP TEAM CHRONIC DISEASE VISITANNUAL PCP TEAM CHRONIC DISEASE VISITSt. Elizabeth Hospitaltart: 91-65-5385Lsyezyeon B surface antibody levelLDL CHOLESTEROLSt. Elizabeth Hospitaltart: 76-73-1373HIM SCREENINGHIV SCREENINGSt. Elizabeth Hospitaltart: 35-56-1799Auzsj depression screening assessment DEPRESSION SCREENINGBrecksville VA / Crille Hospitalrt: comp foot exam completed DIABETIC FOOT EXAMSt. Elizabeth Hospitaltart: 68-91-1138Jwckhqvjr B screeningURINE ALBUMIN:CREATININE RATIOSt. Elizabeth Hospitaltart: 24-86-9808Kzqponslw C antibody, confirmatory testDILATED RETINAL EXAMSt. Elizabeth Hospitaltart: 09-10-1973 PNEUMOCOCCAL (1 - PCV)PNEUMOCOCCAL (1 - PCV)[facility]tart: 1967 HEPATITIS B (1 of 3 - 3-dose series)HEPATITIS B (1 of 3 - 3-dose series) [facility] HospitalAntibody to Scl-70 measurementP[facility] Hospital Comprehensive metabolic 1999 panel - Serum or [facility] 2000 [facility] - Serum or [facility] 2000 panel - Serum or [facility] 1999 panel - Serum or Plasma [facility]CT Abdomen and Pelvis WO contrastPike Community HospitalInsulin [Units/volume] in Serum or [facility] MemorialInsulin [Units/volume] in Serum or [facility] MemorialPatient referralAdams County Regional [facility] Work Phone: Rheumatoid factor [Units/volume] in Serum or Plasma [facility] HospitalUrine culturePike [facility] Hospital XR Hip - left 2 [facility] 2 Views [facility]XR Lumbar spine 4 [facility] - left [facility] Immunizations Immunization DateImmunizationNotesCare NenycyomKojsrugc34-77-8787waicane toxoid, reduced diphtheria toxoid, and acellular pertussis vaccine, adsorbedDavid Girvin DO Work Phone: [facility]10-26-2021influenza, seasonal, injectablePatient ObjectionDakarlos Jordan Other noEnish Fantrotter Other [id number] Vaccine Pfizer - Documentation Purposes OnlyChristopher Mk Other [facility]04-15-2021COVID-19 Vaccine Pfizer - Documentation Purposes OnlyChristopher Mk Other [facility]04-22-2019Rocephin 500 mgChristopher Mk Other noLovely Other [id number] per 15 mgChristopher Mk Other [employer] Fantrotter Other 09-22-2015TB TestChristopher Mk Other noLovely Other [id number] toxoid, reduced diphtheria toxoid, and acellular pertussis vaccine, adsorbedChristopher Mk Other [facility] HospitalNEGATED: Highlighted row has not occurred!86-17-9465ovoruxtls, seasonal, injectablePatient Objection Jeff Jon Other [facility] Payers DatePayer CategoryPayerPolicy [id number] Care HMO (unspecified) AETNA [id number] Health InsuranceAETNA KYRA CHOICE POS II [id number] 2020-Present [phone] [address] [place] [address] [id number] [id number]9-4071Lmxlaph Health Insurance [id number] [id number] 2..1.056068.3.57[id number] 2..1.355892.3.57[id number] 2..1.845321.3.579.2.26062-21-6421Dcruqog8302888 2.0.1.832726.3.579.2.80522-49-9248Eczlxdp9578119 2.0.1.333753.3.579.2.88727-39-7785Bmbcfvu8213577 2..1.133409.3.579.[id number] 2.0.1.834594.3.57[id number] 2.0.1.026451.3.579.2.81514-45-6967Xycjoid5392380 2.0.1.314902.3.579.[id number] 2.840.1.844379.3.579.2.07141-36-1427Xiatwbh377622525 2.840.1.556655.3.579.2.7[id number] 2.0.1.221073.3.579.2.[id number] 2..1.450229.3.579.2.29[id number] 2.0.1.313975.3.579.2.91963-75-6442Ufvdgmu8350987 2..1.928686.3.579.2.209321-94-5194Oekccij2639388 2..1.482594.3.579.2.998404-82-4253Uvrlsvr3223888 2..1.254795.3.579.2.252846-50-0154Xuvmvza1109245 2..1.519298.3.579.2.072068-80-4696Cbjvgpc7576933 2..1.492624.3.579.2.402226-40-1419Wjsctuq965770 2..1.950895.3.579.2.065331-89-1788Lebrafw420586 2..1.010192.3.579.2.425501-29-2527Ptfwybe811784 2.0.1.215991.3.579.2.510377-51-2683Ytrvbta956346 2.0.1.682446.3.579.2.120292-51-6511Fgvbwgv012723061 2.16.840.1.369698.3.579.2.35538-31-2992Cqpzbqr697623612 2.16.840.1.604586.3.579.2.91876-55-9584Anqchid390732835 2..840.1.179157.3.579.2.1[id number] 2.16.840.1.729638.3.579.2.12775-37-7672Zbaudpt Health [id number] 2.16840.1.473421.19UnknownAETNAPrivate Health [id number] [id number] 2.840.1.104095.3.579.2.363Faxzvfz03559242 2.0.1.249310.3.579.2.404Zxfleui31171786 2.840.1.416605.3.579.2.531 Ehrabhg89309595 2.0.1.893438.3.579.2.531 Social History DateTypeDetailFacilityStart: 09-20-2015 End: 23-04-6243Gkveunf smoking status NHISNever smoked tobaccoClinton Memorial Hospital Start: 09-20-2015 End: 28-48-7870Ybgiteq use and exposureSmokeless tobacco non-userSt. Elizabeth Hospitaltart: 06-16-2021 End: 30-81-2537Fsqtcsf intakeNot AskedSt. Elizabeth Hospitaltart: 74-47-1890Vsc Assigned At BirthFemaleCOhioHealth Doctors Hospitaltart: 09-23-2021 End: 32-85-8922Sdmekedy to SARS-CoV-2 (event)Not sureSt. Elizabeth Hospitaltart: 10-13-2021 End: 53-22-6643Ofrxsfw intakeEx-drinker (finding)[facility] Hospitaltart: 87-22-7873Tgjylzj SDOH Alcohol CommentrarelyCleveland ClinicStart: 16-66-2255Vfo Assigned At [facility] Hospitaltart: 06-03-2024 End: 13-59-6181ItcSuwcoq (finding)[facility] Systemtart: 68-62-1172Pyjhadieu beverage intakeCurrent drinker of alcohol (finding)[facility] HealthcareStart: 00-38-3205Lrjubjp of Social functionNOMS HealthcareStart: 64-09-9481Usdtyyp CommentRarelyNOMS HealthcareStart: 60-14-4624FuzRqcdujXRDV HealthcareStart: 84-08-6732Myuteh identityIdentifies as female gender (finding) [facility] HealthcareStart: 46-22-5977Ispkwzv smoking status NHISEx-smokerNOMS HealthcareHistory of tobacco useCurrent smokerNOMS HealthcareHistory of tobacco useCigarette SmokerNOMS Healthcare Functional Status TwbpZcprxgjoytAcmvfcUetyexon46-36-7615Gpwhkyocsw StatusN/[facility] Clinical Notes 12-16-2011 to 03-02-2025 Note Date & NedgInlrSesszgha66-97-5844 Evaluation note* Author Jeff Jon [facility] 2024 12:50pmThe above note written by ___Gail Saul____ acting as human recorder, note dictated by Dr. Jones .I performed the above HPI, ROS, and Examination. I formulated and dictated the treatment plan and was present for entire encounter. Jeff Jon D.O. Author Jeff Jon [facility] 20[facility] 12:00pmThe above note written by ___Gail Saul____ acting as human recorder, note dictated by Dr. Jones .I performed the above HPI, ROS, and Examination. I formulated and dictated the treatment plan and was present for entire encounter. Jeff Jon D.O. [facility] Work Phone: 1(823) 657-182310-07-2025 Evaluation note* Author Jeff Jon [facility] 2024 12:00pmThe above note written by ___Gail Saul____ acting as human recorder, note dictated by Dr. Jones .I performed the above HPI, ROS, and Examination. I formulated and dictated the treatment plan and was present for entire encounter. Jeff Jon D.O. 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 [facility]08-18-2025 NoteUT Cardiology - [facility] Subjective Canelo Pathak [...] Asymmetric SNHL (sensorineural hearing loss) Osteoarthritis Other prison (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 Palpitation Polyarthralgia Pulsatile tinnitus [...] and GERD who was admitted to the [facility] on 08/05/2024 with chest [...] She is not ill-appearing. (more content not included)...[facility]07-10-2025 Evaluation note* Author Jeff Jon [facility] 2024 12:34pmThe above note written by ___Gail Saul____ acting as human recorder, note dictated by Dr. Jones .I performed the above HPI, ROS, and Examination. I formulated and dictated the treatment plan and was present for entire encounter. Jeff Jon D.O. Author Jeff Jon [facility] 2024 10:35amThe above note written by ___Gail Saul____ acting as human recorder, note dictated by Dr. Jones .I performed the above HPI, ROS, and Examination. I formulated and dictated the treatment plan and was present for entire encounter. Jeff Jon D.O. [facility] Work Phone: 1(499) 130-970107-10-2025 Evaluation note* Author Jeff Jon [facility] 2024 12:34pmThe above note written by ___Gail Saul____ acting as human recorder, note dictated by Dr. Jones .I performed the above HPI, ROS, and Examination. I formulated and dictated the treatment plan and was present for entire encounter. Jeff Jon D.O. [facility] Work Phone: 1(769) 666-158804-14-2025 Evaluation note* Author Jeff Jon [facility] 2024 3:45pmThe above note written by ___Gail Saul____ acting as human recorder, note dictated by Dr. Jones .I performed the above HPI, ROS, and Examination. I formulated and dictated the treatment plan and was present for entire encounter. Jeff Jon D.O. [facility] Work Phone: 1(384) 216-246904-14-2025 Evaluation note* Author Jeff Jon [facility] HospitalAuthoredApril 2024 3:45pmThe above note written by ___Gail Saul____ acting as human recorder, note dictated by Dr. Jones .I performed the above HPI, ROS, and Examination. I formulated and dictated the treatment plan and was present for entire encounter. Jeff Jon D.O. Author Jeff Jon [facility] HospitalAuthoredJune 2024 10:35amThe above note written by ___Gail Saul____ acting as human recorder, note dictated by Dr. Jones .I performed the above HPI, ROS, and Examination. I formulated and dictated the treatment plan and was present for entire encounter. Jeff Jon D.O. [facility] Work Phone: 1(966) 195-983404-07-2025 NoteUT Cardiology - [facility] Subjective Canelo Pathak is a 58 y.o. year old female patient being seen to establish care. Patient complains of chest pain and palpitations. Patient states she was in In patient 2 weeks ago at [facility] due to the palpitation. Patient she states she has had no change in how she feels. Still feeling palpitations, fatigued, SOB. Patient Active Problem List Diagnosis Abnormal taste in mouth Acid reflux Allergic rhinitis due to animal hair and dander Anxiety Asthma Binge eating disorder BMI 50.0-59.9, adult ([facility]) CFS (chronic fatigue syndrome) Cholesteatoma of attic of ear, right Diabetes ([facility]) Elevated blood pressure reading Fibromyalgia Gastroesophageal reflux disease with esophagitis Heraclio's disease Hepatitis Hyperlipidemia Hypertension Hypothyroidism Metabolic syndrome Asymmetric SNHL (sensorineural hearing loss) Osteoarthritis 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 Palpitation Polyarthralgia Pulsatile tinnitus of right ear Right-sided tinnitus Seasonal allergies Type 2 diabetes mellitus with hyperglycemia, without long-term current use of insulin ([facility]) UTI (urinary tract infection) Vitamin D [...] and GERD who was admitted to the [facility] on 08/05/2024 with chest [...] Disp: , Rfl: cet (more content not included)...[facility]03-12-2025 [facility]iology [facility] [place] [address] [place] [address] CT Scan Report Signed Patient: Canelo Pathak MR#: [id number] : 1965 Acct:[id number] Age/Sex: 58 / F ADM Date: 5 Loc: CT Room: [facility] Attending Dr: Carol Alegria DO Copies [...] Cameron Worthy M.D.07/30/2024 1:18 PM Dictation Location: [place] [address] Transcribed By: [facility] 07/30/24 1318 Dictated By: Cameron Worthy MD 07/30/24 1314 Signed By: 07/30/24 1318 [facility] Work Phone: 1(198) 704-755102-06-2025 Chief complaint+Reason for visit Narrative * Chief [...] Seasonal allergies September 08, 2024 9:5 8am [facility] Work Phone: 1(505) 555-383701-24-2025 Evaluation note* Author Jeff Jon [facility] 2024 2:07pmThe above note written by ___Gail Saul____ acting as human recorder, note dictated by Dr. Jones .I performed the above HPI, ROS, and Examination. I formulated and dictated the treatment plan and was present for entire encounter. Jeff Jon D.O. [facility] Work Phone: 1(672) 945-504401-24-2025 Evaluation note* Author Jeff Jon [facility] 2024 1:07pmThe above note written by ___Gail Saul____ acting as human recorder, note dictated by Dr. Jones .I performed the above HPI, ROS, and Examination. I formulated and dictated the treatment plan and was present for entire encounter. Jeff Jon D.O. [facility] Work Phone: 1(720) 227-453611-22-2024 Evaluation note* Author Jeff Jon [facility] 2023 4:16pmI performed the above HPI, ROS, and Examination. I formulated and dictated the treatment plan and was present for entire encounter. Jeff Jon D.O. [facility] Work Phone: 1(150) 616-758811-22-2024 Evaluation note* Author Jeff Jon [facility] 2023 4:16pmI performed the above HPI, ROS, and Examination. I formulated and dictated the treatment plan and was present for entire encounter. Jeff Jon D.O. Author Jeff Jon [facility] 2024 1:07pmThe above note written by ___Gail Saul____ acting as human recorder, note dictated by Dr. Jones .I performed the above HPI, ROS, and Examination. I formulated and dictated the treatment plan and was present for entire encounter. Jeff Jon D.O. [facility] Work Phone: 1(170) 538-861906-10-2024 Evaluation note* Author Jeff Jon [facility] 2023 3:26pmThe above note written by ___Gail Saul____ acting as human recorder, note dictated by Dr. Jones .I performed the above HPI, ROS, and Examination. I formulated and dictated the treatment plan and was present for entire encounter. Jeff Jon D.O. Author Jeff Jon [facility] 2023 3:16pmThe above note written by ___Gail Saul____ acting as human recorder, note dictated by Dr. Jones .I performed the above HPI, ROS, and Examination. I formulated and dictated the treatment plan and was present for entire encounter. Jeff Jon D.O. [facility] Work Phone: 1(992) 262-869006-10-2024 Evaluation note* Author Jeff Jon [facility] 2023 3:26pmThe above note written by ___Gail Saul____ acting as human recorder, note dictated by Dr. Jones .I performed the above HPI, ROS, and Examination. I formulated and dictated the treatment plan and was present for entire encounter. Jeff Jon D.O. [facility] Work Phone: 1([phone]) 806-559405-08-2024 Hospital Discharge instructionsAmbulatory Orders* Referral to Pain Management Time Frame: 09/26/23, Location: None [facility] Work Phone: 1(168) 717-791304-09-2024 Evaluation note* Author Jeff Jon [facility] 2023 11:59amThe above note written by ___Gail Saul____ acting as human recorder, note dictated by Dr. Jones .I performed the above HPI, ROS, and Examination. I formulated and dictated the treatment plan and was present for entire encounter. Jeff Jon D.O. [facility] Work Phone: 1([phone]) 696-393704-09-2024 Evaluation note* Author Jeff Jon [facility] HospitalAuthoredApril 2023 11:59amThe above note written by ___Gail Saul____ acting as human recorder, note dictated by Dr. Jones .I performed the above HPI, ROS, and Examination. I formulated and dictated the treatment plan and was present for entire encounter. Jeff Jon D.O. Author Jeff Jon [facility] HospitalAutLe[facility] 2023 3:16pmThe above note written by ___Gail Saul____ acting as human recorder, note dictated by Dr. Jones .I performed the above HPI, ROS, and Examination. I formulated and dictated the treatment plan and was present for entire encounter. Jeff Jon D.O. [facility] Work Phone: 1([phone]) 312-556802-09-2024 Evaluation note* Encounter Date Diagnosis Assessment Notes Treatment Notes Treatment Clinical Notes Jun, Elevated blood pressure (ICD-10 - R03.0) [employer] Other 12-21-2023 Evaluation + Plan noteExtracted from:Title: [...] with any questions or concerns that arise. [facility]11-15-2023 Evaluation note* Encounter Date Diagnosis Assessment Notes Treatment Notes Treatment Clinical Notes Mar, Other chronic pain (ICD-10 - G89 .29) Mar,ERD (gastroesophageal reflux disease) (ICD-10 - K21.9) Mar,sthma (ICD-10 - J45.909) [employer] Other 10-30-2023 Evaluation note* Encounter Date Diagnosis Assessment Notes Treatment Notes Treatment Clinical Notes Feb, Asthma (ICD-10 - J45.909) Feb,Seasonal allergies (ICD-10 - J30.2) Feb,ERD (gastroesophageal reflux disease) (ICD-10 - K21.9) [employer] Other 10-05-2023 Evaluation note* Encounter Date Diagnosis [...] take the medication. She is going to [place] next week, so she will not make [...] (ICD-10 - K21.9)Continue to follow with manager community outreach and take above medication as directed. Feb,Other prison (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 (ICD-10 - Z79.899) Feb,Hyperlipidemia, [...] She did try to contact her water supply technician who prescribed the once weeklydose to see why the dose was so low, but she was told she had to go in for an appointment, and she did not do this. I would like her to increase her vitamin D supplement so in addition I asked her [facility] OTC Vitamin D3 2000 IU and [...] variant or something in the balance center. [employer] Other 06-06-2023 Evaluation note* Encounter Date Diagnosis [...] understanding and is agreeable to treatment plan. [employer] Other 05-30-2023 Evaluation note* Encounter Date Diagnosis Assessment Notes Treatment Notes Treatment Clinical Notes September, Asthma (ICD-10 - J45.909) September,Seasonal allergies (ICD-10 - J30.2) September,ERD (gastroesophageal reflux disease) (ICD-10 - K21.9) [employer] Other 04-26-2023 Evaluation note* Encounter Date Diagnosis Assessment Notes Treatment Notes Treatment Clinical Notes Aug, Asthma (ICD-10 - J45.909) Aug,Seasonal allergies (ICD-10 - J30.2) Aug,ERD (gastroesophageal reflux disease) (ICD-10 - K21.9) [employer] Other 03-24-2023 Evaluation note* Encounter Date Diagnosis [...] inside ear after shower may use chair lift operator on lowest cool setting to blow dry. Follow up with PCP or UC if no improvement in the next 2-3 days. Immediate eval for severe ear pain, severe headache, neck pain/stiffness, pain, erythema, or swelling behind the ear, fever, N/V, hearing loss, fever, or any other new or concerning symptoms. Patient verbalizes understanding and is agreeable to treatment plan. [employer] Other 03-20-2023 Evaluation note* Encounter Date Diagnosis [...] with Prednisone. Jul,Other10:38 AM - 10:46 AM [employer] Other 02-22-2023 Evaluation note* Encounter Date Diagnosis Assessment Notes Treatment Notes Treatment Clinical Notes Jun, Elevated blood pressure (ICD-10 - R03.0) [employer] Other 02-22-2023 Evaluation note* Encounter Date Diagnosis [...] with above medication daily as directed. Jun,Other prison (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 (ICD-10 - Z79.899) Jun,Nocturia [...] her to discuss this pain with her BARREL DRUM CUTTER when seen in July (2022) and her gastro doctor when she has the colonoscopy. She voices that she had endometriosis in the past and was told it could return, this does feel violeta lar to that, so she will discuss it with her water supply technician. Jun,Elevated blood pressure (ICD-10 - R03.0)Her blood [...] ofthe intestine. She is following with a BREAKER LAYER (Cass Cheney) in [place], [place]. She has to do a stool [...] do this. She has not seen an BARREL DRUM CUTTER in a year and a half but [...] I did recommend she buy Soto at [place] and apply this to her hands at night. [employer] Other 01-25-2023 Evaluation note* Encounter Date Diagnosis Assessment Notes Treatment Notes Treatment Clinical Notes May, Asthma (ICD-10 - J45.909) [employer] Other 11-22-2022 Evaluation note* Encounter Date Diagnosis Assessment Notes Treatment Notes Treatment Clinical Notes Mar, Hypothyroidism, unspecified (ICD -10 - E03.9) She voices that she is not going to return to see the engineering technical writer for evaluation. She voices that her [...] once weekly that was ordered by her BARREL DRUM CUTTER and she would like this office to take over filling this prescription. I will order a Vitamin D level to be done in three months. Mar,ther prison (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 (ICD-10 - Z79.899) Mar,Hyperlipidemia, [...] She agrees and a referral is provided. [employer] Other 11-01-2022 Evaluation note* Encounter Date Diagnosis Assessment Notes Treatment Notes Treatment Clinical Notes Mar, Hypothyroidism, unspecified (ICD -10 - E03.9) [employer] Other 11-01-2022 Evaluation note* Encounter Date Diagnosis Assessment Notes Treatment Notes Treatment Clinical Notes Mar, Asthma (ICD-10 - J45.909) Mar,GERD (gastroesophageal reflux disease) (ICD-10 - K21.9) [employer] Other 07-19-2022 Evaluation note* Encounter Date Diagnosis Assessment Notes Treatment Notes Treatment Clinical Notes Nov, Asthma (ICD-10 - J45.909) Nov,easonal allergies (ICD-10 - J30.2) [employer] Other 06-02-2022 Evaluation note* Encounter Date Diagnosis [...] E03.9)Again, she voices that she saw the engineering technical writer recently and was on 2 of [...] uses the Fluticasone nasal spray daily. Oct,ther termite exterminator helper (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 (ICD-10 - Z79.899) Oct,Weight [...] (ICD-10 - M48.00)She is seeing a neurologist (Stpehenie NUNEZ) for evaluation and voices that they [...] can return to discuss this if needed. [employer] Other 05-26-2022 NoteHNO ID: [id number] Author: Anila Jimenez APRN.[facility] Service: ? Author Type: Nurse Practitioner Type: Progress Notes Filed: 10/13/2021 4:47 PM Note Text: ENDOCRINOLOGY, DIABETES AND METABOLISM DIABETES FOLLOW UP VISIT This Team Access Model visit is a phone encounter and Canelo Pathak has consented to this virtual encounter. This is a virtual visit using [employer] video visit. It is a required patient-provider [...] daily. - mometasone furoate(NASONEX 50 MCG/ACTUATION SPRAY) Koppel twice in each nostril once daily. - cetirizine hcl(ZYRTEC 10 MG TAB) Take one(1) tablet daily. - fluticasone/salmeterol(ADVAIR DISKUS 250 MCG-50 MCG/DOSE FOR INHALATION) Take one(1) inhalation twice daily; rinse and gargle mouth with water after each use. No current facility-administered medications for this visit. Immunization History Administered Date(s) Administered COVID-19 vaccine, age 12+ yr (AutoeBid - PURPLE TOP) 09/02/2020 09/23/2020 Social History [...] 103 Corrected (more content not included)...[facility]05-26-2022 History of Present illness Narrative* Anila Jimenez APRN.MANAGER [employer]PLETIONS - 10/13/2021 4:15 PM EDT ENDOCRINOLOGY, DIABETES & METABOLISM DIABETES FOLLOW UP VISIT This Team Access Model visit is a phone encounter and Canelo Pathak has consented to this virtual encounter. This is a virtual visit using [employer] video visit. It is a required patient-provider [...] capsule daily. mometasone furoate(NASONEX 50 MCG/ACTUATION SPRAY) Koppel twice in each nostril once daily. cetirizine hcl(ZYRTEC 10 MG TAB) Take one(1) tablet daily. fluticasone/salmeterol(ADVAIR DISKUS 250 MCG-50 MCG/DOSE FOR INHALATION) Take one(1) inhalation twice daily; rinse and gargle mouth with water after each use. No current facility-administered medications for this visit. Immunization History Administered Date(s) Administered COVID-19 vaccine, age 12+ yr (AutoeBid - [facility]) 09/02/2020 09/23/2020 Social History Tobacco Use [...] which included preparing to see the patient, rone-sq-yxjg patient care, completing clinical documentation, obtaining and/or reviewing separately obtained history, performing a medically appropriate examination, counseling and educating the pat ient/family/caregiver and ordering medications, tests, or procedures. Anila Jimenez APRN.MANAGER COMPLETIONS Endocrine and Metabolism [place] documented in [facility] encounter[facility]22 NoteHNO ID: [id number] Author: Leena Seymour MD Service: ? Author [...] mcg (5,000 unit) cap - Vitamin D [place] ([employer]) Take 1 capsule by mouth daily with food. - montelukast (SINGULAIR) 10 mg tablet Take 10 mg by mouth daily at bedtime. - MULTIVIT-MINERALS/FERROUS GLUC (CENTRAM-CARE ORAL) Take by mouth twice daily. - esomeprazole mag trihydrate(NEXIUM 40 MG CAP) Take one(1) capsule daily. - mometasone furoate(NASONEX 50 MCG/ACTUATION SPRAY) Koppel twice in each nostril once daily. - [...] effexor. Will check routine labs. Leena Seymour [facility]05-20-2022 History of Present illness Narrative* Leena Seymour [...] 125 mcg (5,000 unit) cap Vitamin D [place] ([employer]) Take 1 capsule by mouth daily with food. montelukast (SINGULAIR) 10 mg tablet Take 10 mg by mouth daily at bedtime. MULTIVIT-MINERALS/FERROUS GLUC (CENTRAM-CARE ORAL) Take by mouth twice daily. esomeprazole mag trihydrate(NEXIUM 40 MG CAP) Take one(1) capsule daily. mometasone furoate(NASONEX 50 MCG/ACTUATION SPRAY) Koppel twice in each nostril once daily. cetirizine [...] labs. Leena Seymour MD documented in this encounterCl[facility]05-16-2022 Miscellaneous Notes* Telephone Encounter - Renea Mcfarland Diamond Blender - 10/03/2021 3:02 PM EDT Patient called in asking for routine lab orders to be placed. Patient stated she will schedule her appointment soon. Done. Asad Ansari MD documented in this encounterCl[facility]03-04-2022 NoteHNO ID: [id number] Author: Asad Ansari MD Service: ? Author Type: Physician Type: Progress Notes Filed: 07/22/2021 10:43 AM Note Text: VIRTUAL VISIT PROGRESS NOTE This is a virtual visit using [employer] video platform. It required patient-provider interaction for [...] mcg (5,000 unit) cap - Vitamin D [place] ([employer]) Take 1 capsule by mouth daily with food. - montelukast (SINGULAIR) 10 mg tablet Take 10 mg by mouth daily at bedtime. - MULTIVIT-MINERALS/FERROUS GLUC (CENTRAM-CARE ORAL) Take by mouth twice daily. - esomeprazole mag trihydrate(NEXIUM 40 MG CAP) Take one(1) capsule daily. - mometasone furoate(NASONEX 50 MCG/ACTUATION SPRAY) Koppel twice in each nostril once daily. - [...] Date(s) Administered COVID-19 vaccine, age 12+ yr ([employer] - PURPLE TOP) 09/23/2020 Labs: HbA1c. TSH. [...] - virt (more content not included)...[facility]02-14-2022 Evaluation note* Encounter Date Diagnosis Assessment Notes Treatment Notes Treatment Clinical Notes Jun, Lumbar pain (ICD-10 - M54.50) Jun,Leg pain (ICD-10 - M79.606)bilateral 14 Jun, 2021Hyperlipidemia (ICD-10 - E78.5) [employer] Other 02-02-2022 Miscellaneous Notes* Telephone Encounter - Neema Gunderson Adm - 06/22/2021 9:09 AM EST Patient called in requesting the results of her labs that she had completed on 06/16/2021 Canelo can be reached at [phone] (C) or can be reached through [employer]. documented in this encounterClinton [facility] Hospital01-27-2022 NoteHNO ID: [id number] Author: Asad Ansari MD Service: ? Author Type: Physician Type: Progress Notes Filed: 06/16/2021 1:56 PM Note Text: Last Visit: This is the first visit. Ms. Pathak is here for follow up regarding her DM Type 2 and hypothyroidism. Current Immunizations: Most Recent Immunizations Administered Date(s) Administered COVID-19 vaccine, age 12+ yr ([employer] - PURPLE TOP) 09/23/2020 PHYSICAL EXAMINATION: BP [...] mouth daily before breakfast. - Vitamin D [place] ([employer] for [employer]) Take 1 capsule by mouth daily with food. - montelukast (SINGULAIR) 10 mg tablet Take 10 mg by mouth daily at bedtime. - MULTIVIT-MINERALS/FERROUS GLUC (CENTRAM-CARE ORAL) Take by mouth twice daily. - esomeprazole mag trihydrate(NEXIUM 40 MG CAP) Take one(1) capsule daily. - mometasone furoate(NASONEX 50 MCG/ACTUATION SPRAY) Koppel twice in each nostril once daily. - [...] Cold Intolerance: Yes Heat Intolerance?: Yes[facility]* Encounter Date Diagnosis Assessment Notes Treatment Notes Treatment Clinical Notes Apr, Diabetes (ICD-10 - E11.9) [employer] Other 10-27-2021 Evaluation note* Encounter Date Diagnosis Assessment Notes Treatment Notes Treatment Clinical Notes Feb, Hypothyroidism, unspecified (ICD -10 - E03.9) Feb,olyarthralgia (ICD-10 - M25.50) [employer] Other 10-26-2021 Evaluation note* Encounter Date Diagnosis [...] weeks to check her thyroid levels. Feb,Other prison (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 (ICD-10 - Z79.899) Feb,elvic [...] says by 5-6 weeks it was gone. [employer] Other 10-07-2021 Evaluation note* Encounter Date Diagnosis Assessment Notes Treatment Notes Treatment Clinical Notes Feb, Bronchitis (ICD-10 - J40) [employer] Other 10-04-2021 Evaluation note* Encounter Date Diagnosis Assessment Notes Treatment Notes Treatment Clinical Notes Feb, Asthma (ICD-10 - J45.909) Feb,GERD (gastroesophageal reflux disease) (ICD-10 - K21.9) Feb,easonal allergies (ICD-10 - J30.2) [employer] Other 07-28-2012 History general Narrative - Reported* Type Description Date Medical History asthma Medical Glkskrq33/28/12 Right hand x-rayMedical Vijlmno12/28/12 Blood work Lipid, CMP, CBC, T4, TSH, HGA1C (6.3)Medical Uhcluqw41/22/12-stress test at [facility] Medical HistoryHypothyroidismMedical Ettlldc9623 mammogramMedical History12/21/15 EKGMedical History12/29/[address] [facility] Historytonsillectomy and tmzivqyblqxng1289Uxbvutfu Historycholecystectomy08/2008Surgical Historygall bladder08/2008Surgical Historytubes in aqei2798/78Surgical Historylaproscopic fibroid envprax7705/16/2010Surgical Fvwfnmyukazyptntezz--7178Wkxhauhy Historymammogram [facility] Dr Alvarez07/17/17urgical HistoryERCP 09/17/17Hospitalization Historygall bladder08/2008Hospitalization History tonsillectomyHospitalization Historytubes in earsHospitalization History heart(over night opservation)08/2007Hospitalization Kkpkiwmwjzonlxpr2325 Hospitalization Historyabnormal liver function [id number] [employer] Other 07-28-2012 History general Narrative - Reported* Type Description Date Medical History asthma Medical Iwxberz43/28/12 Right hand x-rayMedical Hjrxiwo14/22/12[facility] HistoryHypothyroidismMedical Izsjzss6471 mammogramMedical History 12/21/15 EKGMedical History12/29/[address] [facility] Historytonsillectomy and fwejxbxxvnpxr6796Uzwqubcd Historycholecystectomy08/2008Surgical Historygall bladder08/2008Surgical Historytubes in jubr6267/78Surgical Historylaproscopic fibroid jgfigud6905/16/2010Surgical Cbndzxwahvahhlztxnt--4368Wfwxvevx Historymammogram [facility] - Dr Alvarez07/17/17urgical HistoryERCP 09/17/17Hospitalization Historygall bladder08/2008Hospitalization History tonsillectomyHospitalization Historytubes in earsHospitalization History heart(over night opservation)08/2007Hospitalization Jplwieglpeapzdnv2435 Hospitalization Historyabnormal liver function imos8216 [employer] Other 07-28-2012 History general Narrative - Reported* Type Description Date Medical History asthma Medical Wvhfabi85/28/12 Right hand x-rayMedical Gxspwrw95/22/12[facility] HistoryHypothyroidismMedical Qdsggoz0014 mammogramMedical History 12/21/15 EKGMedical History12/29/15 Stress Test Count includes [facility] Historyspinal stenosis Surgical Historytonsillectomy and nyxovsvzarjnc9751Kunqwhmp History cholecystectomy08/2008Surgical Historygall bladder08/2008Surgical Historytubes in njue8275/78Surgical Historylaproscopic fibroid kiwydpt9505/16/2010Surgical History sxdclrwljvxl-heddr88-8492Zssktgfg Historymammogram [facility] - Dr Alvarez07/17/urgical HistoryERCP4/Hospitalization Historygall bladder 08/2008Hospitalization HistorytonsillectomyHospitalization Historytubes in ears Hospitalization Historyheart(over night opservation)08/2007Hospitalization Cqcjuraqrcyedonn0629Elpwnwnxcnjmlyl Historyabnormal liver function [id number] [employer] Other Evaluation note* Diagnosis Acquired hypothyroidism- Primary Unspecified hypothyroidism Controlled type 2 diabetes mellitus without complication, without long-term current use of insulin (HCC) [facility]* Diagnosis Fibromyalgia- Primary Mylagia and myositis, unspecified [place] (generalized anxiety disorder) Generalized anxiety disorder documented in this encounter [facility]* Diagnosis Type 2 diabetes mellitus with hyperglycemia, without long-term current use of insulin (HCC)- Primary Heraclio's disease Chronic lymphocytic thyroiditis documented in this encounter [facility] HospitalEvalubeebe healthcare noteNo InformationLincoln Hospital [facility]IC[facility] Other Evaluation noteLincoln Hospital [facility]IC[facility] Other Evaluation note* Diagnosis Onset Date Resolution Status Anxiety acuteAsthmaacuteDiabetesacuteElevated blood pressure readingacuteFatigueacute GERD (gastroesophageal reflux disease)acuteHyperlipidemiaacuteHypothyroidism acuteOther chronic painacuteOther prison (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acute PalpitationacuteVitamin D deficiencyacute [facility] Work Phone: Evaluation note* Diagnosis Onset Date Resolution Status Chronic pain acuteHip painacuteLumbar stenosisacuteSacroiliitisacuteChronic painacuteHip pain acuteLumbar radiculopathyacuteLumbar stenosisacuteSacroiliitisacuteChronic pain acuteLumbar radiculopathyacuteLumbosacral spondylosisacuteSacroiliitisacute [facility] Work Phone: Evaluation note* Diagnosis Onset Date Resolution Status Chronic pain acuteHip painacuteLumbar stenosisacuteSacroiliitisacuteChronic painacuteHip pain acuteLumbar radiculopathyacuteLumbar stenosisacuteSacroiliitisacuteChronic pain acuteLumbar radiculopathyacuteLumbosacral spondylosisacuteSacroiliitisacute Chronic painacuteLumbar radiculopathyacuteLumbosacral spondylosisacute Sacroiliitisacute [facility] Work Phone: Evaluation note* Diagnosis Onset Date Resolution Status Chronic pain acuteLumbar radiculopathyacuteLumbosacral spondylosisacuteSacroiliitisacute Chronic painacuteLumbar radiculopathyacuteLumbosacral spondylosisacute SacroiliitisacuteAsthmaacuteGERD (gastroesophageal reflux disease)acuteSeasonal allergiesacute [facility] Work Phone: History general Narrative - ReportedNort [employer] Other History general Narrative - Reported* Type Description Date Medical History asthma Medical HistoryHypothyroidismMedical Historyspinal stenosisMedical History diabetes mallitusMedical Historychronic depressionMedical HistoryanxietyMedical HistoryhyperlipidemiaMedical HistoryobesityMedical HistoryfibromyalgiaMedical Historyshoulder painSurgical Historytonsillectomy and rwrelknvmyeer1443Trjlnwkx Historycholecystectomy08/2008Surgical Historygall bladder08/2008Surgical History tubes in qjsp6382/78Surgical Historylaproscopic fibroid udzjcvs7505/16/2010 Surgical Vmzydgjwjzsshdyudca--6468Nlzyseus Historymammogram [facility] - Dr Alvarez07/17/urgical HistoryERCP4/Hospitalization Historygall bladder08/2008Hospitalization HistorytonsillectomyHospitalization Historytubes in earsHospitalization Historyheart(over night opservation)08/2007 Hospitalization Kfsddkqtqnmymkex4959Qqmcgofqvdougyc Historyabnormal liver function uccr4666 [place] [employer] Other History general Narrative - Reported* Type Description Date Medical History asthma Medical HistoryHypothyroidismMedical Historyspinal stenosisMedical History diabetes mallitusMedical Historychronic depressionMedical HistoryanxietyMedical HistoryhyperlipidemiaMedical HistoryobesityMedical HistoryfibromyalgiaMedical Historyshoulder painMedical Historyseasonal allergiesMedical HistoryEsophageal refluxSurgical Historytonsillectomy and klrfztizdehds9005Wymrhyli History cholecystectomy08/2008Surgical Historygall bladder08/2008Surgical Historytubes in ukib2119/78Surgical Historylaproscopic fibroid kvvqqfg0405/16/2010Surgical History xpbzjlxdqfhk--8622Ruwcceob Historymammogram [facility] - Dr Alvarez07/17/17urgical HistoryERCP4/Hospitalization Historygall bladder 08/2008Hospitalization HistorytonsillectomyHospitalization Historytubes in ears Hospitalization Historyheart(over night opservation)08/2007Hospitalization Ztryqpuejlekzpxw1138Rdejkzgaygnyqfu Historyabnormal liver function [id number] [facility] Other Hospital course Narrative No data available for this section [facility] CenterH[facility] Discharge instructions No data available for this section [facility] Discharge instructionsAmbulatory Orders* Referral to Orthopedics Time Frame: 06/26/24, Location: None [facility] Work Phone: Progress note No data available for this section [facility] CenterReason for referral (narrative)No reason for referral information availableSt. Francis Hospital Work Phone: Reason for visit Narrativereview labs, discuss multiple issues, see treatment plan for further informationNoHer[facility] Other Reason for visit Narrativereview labs, discuss multiple issues, see treatment planNoHeritage Valley [facility] System [facility] Other Summary Purpose Family History Relationship Condition [...] Referral SpecialtyDiagnoses / ProceduresReferred By ContactReferred To [facility] Diagnoses Fibromyalgia Procedures CONSULT TO [facility] ([facility] PAIN) OFFICE/OUTPATIENT [facility] 60-74 MINUTES Leena Seymour MD [address] [place] [address] Referral IDStatusReasonStart DateExpiration DateVisits RequestedVisits [id number] Review PCP Requested Referral / Reason appt pt needs cons ult to discuss weight loss, diabetes Diagnosis 1 Diabetes (E11.9) Referral Organization [facility] Referring Provider First Name Jeff Referring Provider Last Name Dontrell Referring Provider Specialty Family Prac debbi Referred Organization [facility] Referred Provider Carl Valdivia Jr. Referred Address [address],[place], [place],[address] Referred Provider Specialty Internal Med icine Referral Priority Routine General Notes TalbertViktoria zunigaorah 03/15/2021 01:33:19 PM > [facility] form faxed. pt understands she will be contacted to schedule the appt Reason appt pt needs scre ening colonoscopy Diagnosis 1 Colon cancer screeni ng (Z12.11) Referral Organization [facility] [place] Referring Provider First Name Jeff Referring Provider Last Name Dontrell Referring Provider Specialty Family Prac debbi Referred Organization [facility] Gastroenterolo gy Referred Provider Howard Kunz Referred Address [address] [facility] [address] [facility],[address] ,[place], [place],[address] Referred Provider Specialty Gastroentero logy Referral Priority Routine General Notes Svetlana Talbert 04/11/2022 01:25:30 PM > referral sent p2p. pt understands she will be contacted to schedule this appt. 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 Palpitation Vitamin D deficiency Chief Complaint review labs BP/discuss meds/ENTReason for VisitAnxiety Asthma Diabetes Elevated blood pressure reading Fatigue GERD (gastroesophageal reflux disease) Hyperlipidemia Hypothyroidism Other chronic pain 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 Palpitation Vitamin D deficiency Asymmetrical sensorineural hearing loss Chronic pain Elevated blood pressure reading Tinnitus Chief Complaint review labs BP/discuss meds/ENT review thyroid labsReason for VisitAnxiety Asthma Diabetes Elevated blood pressure reading Fatigue GERD (gastroesophageal reflux disease) Hyperlipidemia Hypothyroidism Other chronic pain Other prison (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 Palpitation Vitamin D deficiency [...] 2024 10:24am GERD (gastroesophageal reflux disease) F [facility] 2024 10:24am Nausea July 16, 2024 10:24am [...] 2024 10:24am GERD (gastroesophageal reflux disease) F [facility] 2024 10:24am Nausea July 16, 2024 10:24am [...] section and content) DATE CREATED AUTHOR 10/10/2018 [facility] DATE CREATED AUTHOR AUTHOR'S ORGANIZ ATION 05/13/2022 [facility] DATE CREATED AUTHOR AUTHOR'S ORGANIZ ATION 09/15/2022 [facility] DATE CREATED AUTHOR AUTHOR'S ORGANIZ ATION 12/19/2022 [facility] DATE CREATED AUTHOR AUTHOR'S ORGANIZ ATION 10/14/2023 [facility] DATE CREATED AUTHOR AUTHOR'S ORGANIZ ATION 10/24/2023 [facility] DATE CREATED AUTHOR AUTHOR'S ORGANIZ ATION 01/31/2024 [facility] DATE CREATED AUTHOR AUTHOR'S ORGANIZ ATION 11/30/2024 [facility] DATE CREATED AUTHOR AUTHOR'S ORGANIZ ATION 02/11/2025 [facility] Source Comments (unrecognize d section and content) In the event this informatio n is protected by the Federal Confidentiality of Alcohol and Drug Abuse Patient Records regulations: The Federal rules restrict any use of the information to criminally investigate or prosecute any alcohol or drug abuse patient.[facility] HospitalIn the event this information is protected by the Federal Confidentiality of Alcohol and Drug Abuse Patient Records regulations: The Federal rules restrict any use of the information to criminally investigate or prosecute any alcohol or drug abuse patient.[facility] HospitalIn the event this information is protected by the Federal Confidentiality of Alcohol and Drug Abuse Patient Records regulations: The Federal rules restrict any use of the information to criminally investigate or prosecute any alcohol or drug abuse patient.[facility] HospitalIn the event this information is protected by the Federal Confidentiality of Alcohol and Drug Abuse Patient Records regulations: The Federal rules restrict any use of the information to criminally investigate or prosecute any alcohol or drug abuse patient.[facility] HospitalIn the event this information is protected by the Federal Confidentiality of Alcohol and Drug Abuse Patient Records regulations: The Federal rules restrict any use of the information to criminally investigate or prosecute any alcohol or drug abuse patient.[facility] Reason for Visit (unrecogniz ed section [...] 08, 2024 End: September 08, 2024Hefredo Rico BULLION WEIGHER ACNP-BCAttending ProviderActiveStart: September 08, 2024 End: September [...] Jeff Jon, DO [address] [place] [address] PCP - [facility]08/01/18Team MemberRelationshipSpecialtyStart DateEnd Date Jeff Jon, DO [address] [place] [address] PCP - [facility]08/01/18Team MemberRelationshipSpecialtyStart DateEnd Date Jeff Jon, DO [address] [place] [address] P[address] - [facility]08/01/18Team MemberRelationshipSpecialtyStart DateEnd Date Jeff Jon, DO [address] [place] [address] PCP - [facility]08/01/18Team MemberRelationshipSpecialtyStart DateEnd Date Jeff Jon, DO [address] [place] [address] PCP - [facility]08/01/18 Team Status: Active Member Role Status [...] 2025Team MemberRelationshipSpecialtyStart DateEnd Date Jeff Jon MD [address] [place] [id number] PCP - GeneralFamily Medicine10/18/22 Goals (unrecognized section [...] BE BASED ON THE PRIMARY CLINICAL RECORDS. [facility] CenterMarbles: [employer] [facility]. provides no warranty or guarantee of the accuracy or completeness of information in this document.
--- NOTE | 2025-03-25 08:50 | PM.HP ---
HPI H&P: HPI History of Present Illness Chief complaint: Asthma Exacerbaion Narrative: Mrs. Pathak is a 59-year-old female with a known diagnosis of asthma. She follows up with contract serviceman Dr. Terrazas. Patient came in with few weeks history of progressive cough, congestion and wheezing. Cough is moist but nonproductive. No chest pain. No fever or chills. No hematemesis or melena. No hemoptysis. Patient was treated with oral antibiotic without significant improvement. Patient does not have oxygen at home. Patient gets an episode like this once or twice a year. Opioid HPI Opioid Management Most Recent Pain and Opioid Data: Last Pain Scale 4 08/06/24, 09:28 Last Pain Assessment Today, 08:00 Last ORT Total Score 1 03/24/25, 21:25 Last ORT Risk Category Low Risk 03/24/25, : Review of Systems ROS Status of ROS 10 or more systems reviewed and unremarkable except as noted in history and below [facility] Medical History (Updated 03/25/25 @ 08:52 by Júnior Hopkins MD) History of left heart catheterization ?Z98.890 - Other specified postprocedural states (ICD-10) Chronic bronchitis ?J42 - Unspecified chronic bronchitis (ICD-10) Chronic pain ?G89.29 - Other chronic pain (ICD-10) CHF (congestive heart failure) ?I50.9 - Heart failure, unspecified (ICD-10) Spinal stenosis ?M48.00 - Spinal stenosis, site unspecified (ICD-10) GERD without esophagitis ?K21.9 - Gastro-esophageal reflux disease without esophagitis (ICD-10) Non-insulin dependent diabetes mellitus Asthma, mild intermittent ?J45.20 - Mild intermittent asthma, uncomplicated (ICD-10) Essential (primary) hypertension ?I10 - Essential (primary) hypertension (ICD-10) Surgical History (Updated 03/24/25 @ 22:02 by Estelita Villa) Hx of tonsillectomy ?Z90.89 - Acquired absence of other organs (ICD-10) History of repair of rotator cuff ?Z98.890 - Other specified postprocedural states (ICD-10) History of appendectomy ?Z90.49 - Acquired absence of other specified parts of digestive tract (ICD-10) History of cholecystectomy ?Z90.49 - Acquired absence of other specified parts of digestive tract (ICD-10) History of hysterectomy ?Z90.710 - Acquired absence of both cervix and uterus (ICD-10) Family History (Updated 03/24/25 @ 21:39 by Lana Sunshine RN) Father Family history of stroke Family history of myocardial infarction Family history of hypertension Family history of CHF (congestive heart failure) Grandmother Family history of hypertension Family history of diabetes mellitus Family history of CHF (congestive heart failure) Grandfather Family history of myocardial infarction Family history of hypertension Family history of CHF (congestive heart failure) Brother Family history of myocardial infarction Family history of hypertension Family history of CHF (congestive heart failure) Aunt Family history of hypertension Family history of cancer Family history of COPD (chronic obstructive pulmonary disease) Mother Pulmonary embolism Social History (Updated 03/24/25 @ 21:33 by Lana Sunshine RN) Within the past year, how often did you have a drink containing alcohol: monthly or less Within the past year, how many standard drinks containing alcohol did you have on a typical day: 1 or 2 Within the past year, how often did you have six or more drinks on one occasion: never Total score: 0 Score interpretation: A score less than 3 is consistent with normal alcohol consumption. Smoking status: Never smoker Non-prescribed substance use: denies use Highest level of school completed/degree received: high school graduate Are you now , , , , never or living with a partner: In a typical week, how many times do you talk on the telephone with family, friends, or neighbors: 3 or more times per week How often do you get together with friends or relatives: 3 or more times per week Little interest or pleasure in doing things: not at all Feeling down, depressed, or hopeless: not at all Do you think of yourself as: straight/heterosexual Gender Identity: female Meds Home Medications and Allergies Home Medications ?Medication ?Instructions ?Recorded ?Confirmed ?Type cetirizine 10 mg tablet 10 mg PO .QHS 06/30/23 03/24/25 History levothyroxine 175 mcg tablet 175 mcg PO DAILY 06/30/23 03/24/25 History cyclobenzaprine 10 mg tablet 10 mg PO BEDTIME 08/05/24 03/24/25 History esomeprazole magnesium 40 mg 40 mg PO DAILY 08/05/24 03/24/25 History capsule,delayed release fluticasone 250 mcg-salmeterol 50 1 inh inhalation BID 08/05/24 03/24/25 History mcg/dose blistr powdr for inhalation (Advair Diskus) albuterol sulfate 90 mcg/actuation 2 inh inhalation Q4H PRN shortness 08/06/24 03/24/25 Rx aerosol inhaler of breath or wheezing #6.7 grams atorvastatin 40 mg tablet 40 mg PO DAILY 03/24/25 03/24/25 History cholecalciferol (vitamin D3) 50 50 mcg PO DAILY 03/24/25 03/24/25 History mcg (2,000 unit) tablet (Vitamin D3) dapagliflozin propanediol 10 mg 10 mg PO DAILY 03/24/25 03/24/25 History tablet (Farxiga) diltiazem HCl 240 mg 240 mg PO Q24H 03/24/25 03/24/25 History capsule,extended release 24 hr (Cartia XT) fluticasone 250 mcg-salmeterol 50 1 inh inhalation BID 03/24/25 03/24/25 History mcg/dose blistr powdr for inhalation (Wixela Inhub) furosemide 40 mg tablet 40 mg PO DAILY 03/24/25 03/24/25 History montelukast 10 mg tablet 10 mg PO DAILY 03/24/25 03/24/25 History spironolactone 25 mg tablet 25 mg PO DAILY 03/24/25 03/24/25 History tramadol 50 mg tablet 50 mg PO BID PRN pain 03/25/25 03/25/25 History Allergies Allergy/AdvReac Type Severity Reaction Status Date / Time gatifloxacin (From Tequin) Allergy Mild Rash Verified 08/05/24 10:56 Exam Narrative Exam Narrative: [pt is awake and alert. oriented to place, time and person, mild tachypnea at rest. HEENT: [place] conjunctiva and NL buccal mucosa Neck: Supple, no tenderness Endocrine: No Thyromegaly. Vascular: No JVD or carotid bruit. Lymphatic: No cervical lymphadenopathy. Chest: Bilateral wheezing or rhonchi. Heart RRR, no extra sound or murmur. Abd: Soft, no tenderness, no rebound and no rigidity. Increase abd girth therefore clinically I could not exclude the possibility of intra abd mass or organomegaly. LE: No cyanosis or clubbing, no varices or edema. Neuro: A A O. Nl speech, comprehension and attention. Nl and symetrical motor and tone examination through out. []] Constitutional Vital Signs, click to edit/add: Last Vital Signs Temp 97.9 F 03/25/25 08:00 Pulse 78 03/25/25 08:00 Resp 18 03/25/25 03:48 BP 171/98 H 03/25/25 08:00 Pulse Ox 93 L 03/25/25 08:00 O2 Del Method Nasal Cannula 03/25/25 08:00 O2 Flow Rate 2 03/25/25 08:00 Results Labs Labs: Short CBC 03/24/25 03/25/25 Range/Units 17:45 05:07 WBC 12.4 H 9.4 (4.0-11.0) 10^3/uL Hgb 15.7 14.7 (12.0-16.0) g/dL Hct 46.9 43.7 (36.0-48.0) % Plt Count 394 353 (150-450) 10^3/uL BMP 03/24/25 03/25/25 17:45 05:07 Sodium 140 137 Potassium 3.8 4.5 Chloride 101 103 Carbon Dioxide 26.1 26.0 BUN 19.0 H 22.0 H Creatinine 0.88 0.93 Glucose 163 H 369 H Calcium 9.9 9.8 Assessment and Plan Assessment and Plan (1) Asthma exacerbation: Qualifiers: Asthma severity: moderate Asthma persistence: unspecified Qualified Code(s): J45.901 - Unspecified asthma with (acute) exacerbation (2) Diabetes: (3) HTN (hypertension): (4) Hypothyroid: Plan Acute asthma exacerbation, acute bronchitis are suspected. Normal BNP. No history of PE or DVT. No lower extremity swelling. Patient has bilateral wheezing or rhonchi highly suggestive of bronchospasm. Risk of a contrasted CT in the situation outweighs benefit and yield Chest x-ray showed no active infiltrate. Patient follows up with contract serviceman Dr. Terrazas I requested COVID, influenza A and B and RSV which all came back negative. I could not exclude other possible viral etiology such as adenovirus, pertussis, parainfluenza, human pneumo virus and others Meanwhile I started patient on albuterol, Atrovent, Pulmicort, Solu-Medrol and doxycycline. Continue to monitor condition. Diabetes with hyperglycemia. Steroid-induced hyperglycemia. I started patient on Lantus as well as sliding scale. Continue to titrate and adjust accordingly. Hypothyroidism Continue Synthroid Hypertension Continue Cardizem DVT prophylax Lovenox subcu Chronic, subacute medical conditions not listed above, abnormal labs and imaging, incidental findings seen on labs and or imaging. These would need to be addressed. Could be addressed later on or in the outpatient setting by PCP collaboration with other needed outpatient providers when time and condition are appropriate.
[2025-03-25] MEDS: BUDESONIDE 0.5 MG/2 ML AMPULE NEB IH ×2 (09:28→20:44)
[2025-03-25] MEDS: IPRATROPIUM/ALBUTEROL SULFATE 3 ML AMPUL.NEB IH ×3 (09:28→20:44)
[2025-03-25] MEDS: FUROSEMIDE 40 MG TABLET PO (09:52)
[2025-03-25] MEDS: LEVOTHYROXINE SODIUM 100 MCG TABLET PO (09:52)
[2025-03-25] MEDS: DILTIAZEM HCL 180 MG CAP.ER.24H PO (09:52)
[2025-03-25] MEDS: LEVOTHYROXINE SODIUM 75 MCG TABLET PO (09:52)
[2025-03-25] MEDS: ENOXAPARIN SODIUM 40 MG/0.4 ML SYRINGE SUBQ (09:53)
[2025-03-25] MEDS: DOXYCYCLINE MONOHYDRATE 100 MG CAPSULE PO ×2 (09:53→21:13)
[2025-03-25] MEDS: DAPAGLIFLOZIN 5 MG TABLET 10 MG PO (09:53)
[2025-03-25] MEDS: METHYLPREDNISOLONE SOD SUCC PF 40 MG/ML VIAL IVP ×2 (09:54→21:13)
[2025-03-25] MEDS: INSULIN GLARGINE 300 UNIT/3 ML INSULN.PEN 15 UNIT SQ (09:55)
[2025-03-25] MEDS: SPIRONOLACTONE 25 MG TABLET PO (09:56)
--- NOTE | 2025-03-25 10:54 | DIETREC ---
Recommend 2000 kcal CCD, Heart Healthy diet.
[2025-03-25] MEDS: PANTOPRAZOLE SODIUM 40 MG TABLET.DR PO (21:13)
[2025-03-25] MEDS: MONTELUKAST SODIUM 10 MG TABLET PO (21:13)
[2025-03-25] MEDS: ATORVASTATIN CALCIUM 40 MG TABLET PO (21:13)
[2025-03-25] MEDS: CYCLOBENZAPRINE HCL 10 MG TABLET PO (21:13)
[2025-03-25] MEDS: CETIRIZINE HCL 10 MG TABLET PO (21:13)
[2025-03-26 04:00] VITALS: BP 148/79; PULSE 83; TEMP 36.5; O2SAT 92
[2025-03-26 05:08] VITALS: O2SAT 93
[2025-03-26] MEDS: LEVOTHYROXINE SODIUM 75 MCG TABLET PO (05:45)
[2025-03-26] MEDS: LEVOTHYROXINE SODIUM 100 MCG TABLET PO (05:45)
[2025-03-26 08:00] VITALS: BP 147/79; PULSE 90; TEMP 36.6; O2SAT 91
[2025-03-26] MEDS: DAPAGLIFLOZIN 5 MG TABLET 10 MG PO (08:35)
[2025-03-26] MEDS: METHYLPREDNISOLONE SOD SUCC PF 40 MG/ML VIAL IVP (08:36)
[2025-03-26] MEDS: DOXYCYCLINE MONOHYDRATE 100 MG CAPSULE PO (08:36)
[2025-03-26] MEDS: SPIRONOLACTONE 25 MG TABLET 12.5 MG PO (08:36)
[2025-03-26] MEDS: ENOXAPARIN SODIUM 40 MG/0.4 ML SYRINGE SUBQ (08:36)
[2025-03-26] MEDS: FUROSEMIDE 40 MG TABLET PO (08:36)
[2025-03-26] MEDS: INSULIN ASPART 300 UNIT/3 ML PEN SUBQ ×2 (08:37)
[2025-03-26] MEDS: INSULIN GLARGINE 300 UNIT/3 ML INSULN.PEN 15 UNIT SQ (08:38)
[2025-03-26] MEDS: DILTIAZEM HCL 180 MG CAP.ER.24H PO (08:39)
--- NOTE | 2025-03-26 09:10 | CM.NOTE ---
Rounds made with Dr. Hopkins, pt will discharge to home. Pt will have walk test prior to discharge. Pt will f/u with Dr. Dennison and PCP.
[2025-03-26] MEDS: IPRATROPIUM/ALBUTEROL SULFATE 3 ML AMPUL.NEB IH (09:13)
[2025-03-26] MEDS: BUDESONIDE 0.5 MG/2 ML AMPULE NEB IH (09:13)
[2025-03-26 09:30] VITALS: PULSE 91; O2SAT 91
[2025-03-26 10:08] VITALS: O2SAT 91; O2SAT 93
--- NOTE | 2025-03-26 10:16 | P.DS_ITS ---
DS: Providers Provider Date of admission: 03/24/25 21:12 Primary care physician: JEFF JON DS: Diagnosis Discharge Diagnosis (1) Asthma exacerbation: Qualifiers: Asthma severity: moderate Asthma persistence: unspecified Qualified Code(s): J45.901 - Unspecified asthma with (acute) exacerbation (2) Diabetes: (3) HTN (hypertension): (4) Hypothyroid: Plan As listed above, below and others that are not listed DS: Summary Hospital Course Hospital Course: Mrs. Pathak is a 59-year-old female with a known history of asthma. She came in with 2 weeks history of progressive cough, wheezing and congestion. Acute asthma exacerbation, acute bronchitis are suspected. Normal BNP. No history of PE or DVT. No lower extremity swelling. Patient has bilateral wheezing or rhonchi highly suggestive of bronchospasm. Risk of a contrasted CT in the situation outweighs benefit and yield Chest x-ray showed no active infiltrate. Patient follows up with data entry machine operator Dr. Terrazas I requested COVID, influenza A and B and RSV which all came back negative. I could not exclude other possible viral etiology such as adenovirus, pertussis, parainfluenza, human pneumo virus and others Meanwhile I started patient on albuterol, Atrovent, Pulmicort, Solu-Medrol and doxycycline. Continue to monitor condition. Patient has made significant improvement over the last 24 hours. She is back to herself. Chest exam showed complete resolution of bilateral wheezing. Patient is feeling great and requesting to be discharged home. Patient has LABA and CSI as well as a rescue inhaler. Diabetes with hyperglycemia. Steroid-induced hyperglycemia. I started patient on Lantus as well as sliding scale. Continue to titrate and adjust accordingly. Patient will be discharged home on preadmission home medication fark [employer]. Hypothyroidism Continue Synthroid Hypertension Continue Cardizem DVT prophylax Lovenox subcu Chronic, subacute medical conditions not listed above, abnormal labs and imaging, incidental findings seen on labs and or imaging. These would need to be addressed. Could be addressed later on or in the outpatient setting by PCP collaboration with other needed outpatient providers when time and condition are appropriate. Patient has multiplel issues as listed above and others that are not listed. All appear to be stable. Patient is feeling great. Back to baseline state and requesting to be discharged home. At this time, I do not have any clear or strong clinical justification to extend inpatient hospitalization. Patient however will require close and frequent monitoring as well as additional work- up, investigation and therapeutic intervention that could take place from this point on post discharge. That is to prevent relapse, decompensation, rehospitalization and other medical implications.. I instructed patient to ask her primary care doctor to obtain [facility] record entirely to address abnormalities seen on labs and imaging that I have and have not addressed during this hospitalization, follow-up on pending blood work, imaging and pathology is if available and to follow-up on needed medical care in the outpatient setting. Time Spent with Patient Time attestation: Total time spent providing and/or coordinating discharge services: Exam Constitutional Vital Signs, click to edit/add: Last Vital Signs Temp 97.9 F 03/26/25 08:00 Pulse 91 H 03/26/25 09:30 Resp 20 03/26/25 09:30 BP 147/79 H 03/26/25 08:00 Pulse Ox 91 L 03/26/25 09:30 O2 Del Method Room Air 03/26/25 09:30 O2 Flow Rate 1 03/25/25 20:44 DS: Data Data Completed and Pending Labs on day of discharge: Labs from last 24 hours 03/25/25 03/25/25 03/25/25 21:28 16:14 11:57 POC Glucose 239 H 268 H 361 H Discharge Plan Discharge Disposition: Home, Self-Care Discharge Medications: New doxycycline monohydrate 100 mg Capsule 100 mg PO BID Qty: 12 0RF prednisone 10 mg tablet 10 mg PO .As directed Qty: 15 0RF Rx Instructions: Take 1 tablet twice a day for 3 days Then 1 tablet daily for 5 days Then half tablet daily until finish Continued cetirizine 10 mg tablet 10 mg PO .QHS levothyroxine 175 mcg tablet 175 mcg PO DAILY atorvastatin 40 mg tablet 40 mg PO .qhs diltiazem HCl [Cartia XT] 240 mg capsule,extended release 24hr 240 mg PO Q24H montelukast 10 mg tablet 10 mg PO .qhs spironolactone 25 mg tablet 12.5 mg PO DAILY dapagliflozin propanediol [Farxiga] 10 mg tablet 10 mg PO DAILY cholecalciferol (vitamin D3) [Vitamin D3] 50 mcg (2,000 unit) tablet 50 mcg PO DAILY fluticasone propion-salmeterol [Wixela Inhub] 250-50 mcg/dose blister with device 1 inh inhalation BID tramadol 50 mg tablet 50 mg PO BID PRN (Reason: pain) albuterol sulfate 2.5 mg /3 mL (0.083 %) solution for nebulization 2.5 mg inhalation Q6H PRN (Reason: shortness of breath or wheezing) aspirin 81 mg tablet,chewable 1 tab PO DAILY cyclobenzaprine 10 mg tablet 10 mg PO BEDTIME esomeprazole magnesium 40 mg capsule,delayed release(DR/EC) 40 mg PO .qhs albuterol sulfate 90 mcg/actuation HFA aerosol inhaler 2 inh inhalation Q4H PRN (Reason: shortness of breath or wheezing) Qty: 6.7 0RF Changed furosemide 40 mg tablet 20 mg PO DAILY Qty: 0 0RF Print Language: Panamanian Activity Restrictions/Additional Instructions: I may not have addressed or treated all of your medical illnesses or the abnormal blood work or imaging studies during this hospitalization. Please ask your primary care provider to obtain [facility] records entirely to follow up on all of the abnormal physical, laboratory, and imaging findings that I have not addressed. Please return back to the emergency room or seek medical attention if your symptoms worsen or return. Discharging you from [facility] does not mean that your medical care ends here and now. You may still need additional monitoring, work up, investigation, and treatment plan to be handled from this point on by out patient providers including your primary care provider and specialists. For any medication question, please contact your retail pharmacist or your primary care provider. Thank you. Forms: Portal Instructions Follow Up Appointments: Dr. Terrazas - Jaime. 04/01 @ 11:[address] [place], Dr. Jon - office will call patient to schedule appt. [phone]
--- NOTE | 2025-03-26 10:35 | CM.NOTE ---
Pt will not require oxygen at discharge, update sent to Dr. Hopkins. No other discharge needs identified.
--- NOTE | 2025-03-27 13:34 | CM.DCFOLLOWU ---
03/27 1st attempt. No answer
--- NOTE | 2025-03-30 12:58 | CM.DCFOLLOWU ---
03/30- 2nd attempt. No answer
== END 2025-03-26 11:14 | disposition home or self-care (01) | DRG 203 ==
LOC: ER 21:14 → MS 03-25 00:27
PROVIDERS: Emergency Medicine; Admitting Provider Internal Medicine; Emergency Provider Internal Medicine; PCP Family Medicine; Visit Provider Internal Medicine
DX: J45.21 Mild intermittent asthma with (acute) exacerbation (principal); J20.9 Acute bronchitis, unspecified; E11.65 Type 2 diabetes mellitus with hyperglycemia; T38.0X5A Adverse effect of glucocorticoids and synthetic analogues, initial encounter; E03.9 Hypothyroidism, unspecified; I11.0 Hypertensive heart disease with heart failure; I50.9 Heart failure, unspecified; Z79.899 Other long term (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; Z79.84 Long term (current) use of oral hypoglycemic drugs; Z79.890 Hormone replacement therapy; Z90.49 Acquired absence of other specified parts of digestive tract; Z90.710 Acquired absence of both cervix and uterus; E78.5 Hyperlipidemia, unspecified; Z79.82 Long term (current) use of aspirin
CPT/HCPCS: 36415; 71045; 80048; 82948; 83735; 83880; 84484; 85025; 87040; 87420; 87804; 87811; 93005; 94640; 94761; 96365; 96375; 99285; J1650; J2405; J2919; J3475

== ENCOUNTER 2025-04-24 12:57 | Emergency (ER) | payer OTHER, SELFPAY ==
[2025-04-24 12:59] VITALS: BP 154/109; PULSE 92; TEMP 37.1; O2SAT 97; BMI 43.1
--- OUTSIDE RECORDS SUMMARY | 2025-04-24 13:23 | XMS_ITS | Encounter Summary ---
Author Organization [facility] Address [address] [place] [address] Care Team Providers Care Woven Paper Hat Mender Name Role Phone Joe Barksdale DO Primary Care Provider [phone] Encounter Details DateTypeDepartmentCare Team (Latest Contact Info)Hnylwvramax85/26/2025Orders Only [facility] [address] [place] [address] Yulia Huffman MA Edema, unspecified type (Primary Dx) Social History Tobacco UseTypesPacks/DayYears UsedDateSmoking Tobacco: NeverSmokeless Tobacco: NeverAlcohol UseStandard Drinks/WeekCommentsYes0 (1 standard drink = 0.6 oz pure alcohol)occasionalCommentsNoSex and Gender InformationValueDate Recorded Sex Assigned at QyjpaLqngoh22/13/2025 2:06 PM EDTLegal RahUbvjye55/19/2025 8:53 AM EDTGender UjiyquseTbqdtv82/13/2025 2:06 PM EDTSexual OrientationHeterosexual or Teypgbog00/13/2025 2:06 PM EDTdocumented as of this encounter Plan of Treatment NameTypePriorityAssociated DiagnosesOrder ScheduleBasic metabolic panelLab Routine Edema, unspecified type Expected: 04/15/2025 (Approximate), Expires: 04/15/2026-type natriuretic peptideLabRoutine Edema, unspecified type Expected: 04/15/2025 (Approximate), Expires: 04/15/2026documented as of this encounter Visit Diagnoses Diagnosis Edema, unspecified type- Primary documented in this encounter Care Teams Team MemberRelationshipSpecialtyStart DateEnd Date Joe Barksdale DO [address] [place] [address] PCP - GeneralFamily Medicine08/22/24documented as of this encounter
--- OUTSIDE RECORDS SUMMARY | 2025-04-24 13:23 | XMS_ITS | Clinical Summary ---
Author Organization [facility]in [facility] Address [address], [address] [place] [address] Care Team Providers Care Labor Gang Supervisor Name Role Phone Joe Barksdale DO Primary Care Provider Unavail able Social History Tobacco UseTypesPacks/DayYears UsedDateSmoking Tobacco: Never Assessed CommentsUnknownSex and Gender InformationValueDate RecordedSex Assigned at Not on fileLegal VjvAoirgd32/29/2019 4:54 PM EDTGender IdentityNot on fileSexual OrientationNot on file Plan of Treatment Not on file Insurance Care Teams Team MemberRelationshipSpecialtyStart DateEnd Date Joe Barksdale DO PCP - Generalmi Medicine09/17/18
--- OUTSIDE RECORDS SUMMARY | 2025-04-24 13:24 | XMS_ITS | Clinical Summary ---
Author Organization [facility] Address [address] [place] [address] Care Team Providers Care Boat Deckhand Name Role Phone Joe Barksdale MD Primary Care Provider [phone] Allergies Active AllergyReactionsCriticalityNoted ZowmLjgcewymIfihcywcbwXuvrgmo29/27/2007 nerve difficulty ClarithromycinDiarrhea,ZiqqscsDky89/27/2007 nerve difficulty GatifloxacinGI intolerance,Yirwnnr4405/16/2007 Other Reaction(s): Unknown Other Reaction(s): Unknown nerve difficulty ZwiawrejbtjjMgkmhbn60/27/2007 Other Reaction(s): Abdominal Pain, itches/pain nerve difficulty CprpjtrmhShsbtyi24/27/2022 Medications MedicationSigDispense QuantityRefillsLast FilledStart DateEnd DateStatus metFORMIN [...] nostril DailyActive Active Problems ProblemNoted DateDiagnosed DateAcid wlsldk4210/11/20239295Rekfael71/23/2024sthma 10/11/2023Elevated blood pressure nlfcifc9010/11/20236555Duzeexmtu48/23/2024 Ibgbnzypzzninb86/23/4696Oxztlrnahogf60/23/0723Ryrzgcpxrayuax25/23/2024 Lsuuiyqdmanxuf77/23/2024Other intermodal owner operator truck driver (current) drug cdmmxvc7210/11/2023 Lzdewokcvgk02/23/1629Ubpqnmnglajude09/23/2024Seasonal /23/2024UTI (urinary tract infection)10/11/2023Vitamin D zdretujmbo22/23/2024symmetric SNHL (sensorineural hearing loss)09/24/2023ight-sided mkebobkl67/06/2024iabetes 09/24/2023ulsatile tinnitus of right ear08/21/2023holesteatoma of attic of ear, right08/21/2023bnormal taste in mouth10/04/2022llergic rhinitis due to animal hair and bdlshp0310/04/2022astroesophageal reflux disease with esophagitis 10/04/2022Mixed conductive and sensorineural hearing loss of right ear with restricted hearing of left ear10/04/2022Sensorineural hearing loss, bilateral 12/16/2018Binge eating dytyleoy09/02/2016BMI 50.0-59.9, adult09/20/2015CFS (chronic fatigue syndrome)09/20/20153258Ckhbjekuwgic57/02/2016Hashimoto's disease 09/20/2015Metabolic krmrxert63/02/2016 Resolved Problems ProblemNoted DateDiagnosed DateResolved UqiqRrotzbchiedwa34 Seasonal allergic rhinitis due to plubwc14 Immunizations ImmunizationAdministration DatesNext PanByng9712/16/2011 Family History Medical HistoryRelationNameCommentsDiabetesFatherHeart failureFather HyperlipidemiaFatherStrokeFatherPulmonary embolismMotherHyperlipidemiaSibling RelationNameStatusCommentsFatherDeceasedMotherDeceasedSibling Social History Tobacco UseTypesPacks/DayYears UsedDateSmoking Tobacco: NeverSmokeless Tobacco: Never Tobacco Cessation:Counseling Given: Not Answered Alcohol UseStandard Drinks/WeekCommentsYes1 (1 standard drink = 0.6 oz pure alcohol)RarelyCommentsUnknownSex and Gender InformationValueDate RecordedSex Assigned at FtzdvLtzojr71/28/2023 1:50 PM ESTLegal SexFemale 08/02/2022 6:44 PM EDTGender JgwvdsktKcrsah30/28/2023 1:50 PM ESTSexual OrientationNot on file Last Filed Vital Signs Vital SignReadingTime TakenCommentsBlood Pvidiohb809/8006 3:27 PM EDT Xmrnd4721 10:06 AM RXEGjuveakqpti62.3 ??C (97.3 ??F)04/30/2023 12:54 PM ESTRespiratory Wsdv808707/22/2018 10:06 AM ESTOxygen Saturation--Inhaled Oxygen Concentration--Bylowv440 kg (279 lb)10/23/2023 3:27 PM FYQDikvtg520.1 cm (5' 5 ) 10/23/2023 3:27 PM EDTBody Mass Index46.43010/23/2023 3:27 PM EDT Plan of Treatment Not on file Insurance [facility] Address: [facility] [id number] [place] [phone] Care Teams Team MemberRelationshipSpecialtyStart DateEnd Date Joe Barksdale MD [address] [place] [id number] PCP - GeneralFacaly Medicine10/18/22
--- OUTSIDE RECORDS SUMMARY | 2025-04-24 13:24 | XMS_ITS | Clinical Summary ---
Author Organization [facility] Address [address] [place] [address] Care Team Providers Care Purchasing Internship Name Role Phone Joe Barksdale Primary Care Provider [phone] Allergies Active AllergyReactionsCriticalityNoted DateCommentsGatifloxacinItching 05/16/2007 Other Reaction(s): [...] by mouth in the morning. 45 tablet ctive furosemide (Lasix) 20 mg tablet Indications:Chronic diastolic congestive heart failure (CMS/HCC)Take 1 tablet (20 mg) by mouth in the morning. 90 tablet ctive spironolactone (Aldactone) 25 mg tablet Indications:Chronic diastolic congestive heart failure (CMS/HCC),Primary hypertensionTake 0.5 tablets (12.5 mg) by mouth in the morning. 45 tablet Discontinued(Reorder) Active Problems ProblemNoted DateDiagnosed DateShortness of nmqijs9501/05/2025Other chest pain 01/05/2025ardiovascular stress test grogzndk51/18/2025id ppezag6210/11/2023 Hfxmrnj6810/11/20232703Ovhlti48/23/2024Elevated blood pressure ltgmxjv3910/11/2023 Refshzibj15/23/2535Hetzofpnxtqfdf22/23/7766Qlybadnaxsxv83/23/2024Hypothyroidism 10/11/20236576Appzxqlgdmxnrx74/23/2024[facility] [place] [facility] (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 10/11/20231530Mlrqqoscsds36/23/0520Nkawpqynfkvmwp05/23/2024Seasonal allergies 10/11/2023UTI (urinary tract infection)10/11/2023Vitamin D bycotnbvyc05/23/2024 Vnvxpmwc58/06/2024symmetric SNHL (sensorineural hearing loss)4Right- sided ejwumres05/06/2024holesteatoma of attic of ear, right08/21/2023ulsatile tinnitus of right ear08/21/2023bnormal taste in mouth10/04/2022llergic rhinitis due to animal hair and tnbzvd2410/04/2022astroesophageal reflux disease with ycqerydpdfg25/17/2023Type 2 diabetes mellitus with hyperglycemia, without long-term current use of kzsxenz3910/11/2021inge eating zaodzdsy16/02/2016BMI 50.0-59.9, adult09/20/2015CFS (chronic fatigue syndrome)09/20/2015Fibromyalgia 09/20/2015Hashimoto's kdeuiem0709/20/2015Metabolic savnufjq50/02/2016 Encounters DateTypeDepartmentCare YdapTqltgpdozdi99/26/2025Orders Only [facility] [address] [place] [address] Yulia Huffman MA Edema, unspecified type (Primary Dx)04/15/2025Telephone [address] [place] [address] Yulia Huffman MA 04/01/2025Orders Only [address] [place] [address] Yulia Huffman MA Chronic diastolic congestive heart failure (CMS/HCC); Primary ilvbelxedjbo63/10/2025Telephone [address] [place] [address] Yulia Huffman MA 02/16/2025Telephone [facility] [address] [place] [address] Yulia Huffman MA 02/09/2025 2:[address] [place] [address] Ambrose Espino MD Chronic diastolic congestive heart failure (CMS/HCC) (Primary Dx); Primary hypertension; Mixed kwyupgzogjzldp29/15/2025Telephone [address] [place] [address] Yulia Huffman MA from Last 3 Months Family History Medical HistoryRelationNameCommentsHeart attackFatherKidney diseaseFather Pulmonary embolismMotherRelationNameStatusCommentsBrotherAliveFatherDeceased MotherDeceased Social History Tobacco UseTypesPacks/DayYears UsedDateSmoking Tobacco: NeverSmokeless Tobacco: Never Tobacco Cessation:Counseling Given: Not Answered Alcohol UseStandard Drinks/WeekCommentsYes0 (1 standard drink = 0.6 oz pure alcohol)occasionalCommentsNoSex and Gender InformationValueDate Recorded Sex Assigned at RtenjNpnpgf52/13/2025 2:06 PM EDTLegal JcgIovcql16/19/2025 8:53 AM EDTGender LqtdqtecYylavq45/13/2025 2:06 PM EDTSexual OrientationHeterosexual or Ixkxcedz84/13/2025 2:06 PM EDT Last Filed Vital Signs Vital SignReadingTime TakenCommentsBlood Yowinngl595/8609 2:23 PM EDT Tdaqu9024 2:23 PM EDTTemperature--Respiratory Qomr1194 11:08 AM EDTOxygen Clhjvwhbgd89%02/09/2025 2:23 PM EDTInhaled Oxygen Concentration-- Tqwdoz965 kg (271 lb)02/09/2025 2:23 PM EYSNipcri744.1 cm (5' 5 )02/09/2025 2:23 PM EDTBody Mass Index45.109 2:23 PM EDT Plan of Treatment Health MaintenanceDue DateLast DoneCommentsCT Sqlhltmhbmyl28/23/1968Colonoscopy 1967Colorectal Cancer Fipepxviz86/23/1968Diabetes: Hemoglobin A1C 1967FIT-DNA1967FIT1967FOBT09/11/19671445Lvyazrhbzagnp27/23/1968 Diabetes: Retinopathy Uqlvmlvku81/23/1978Depression Jpxjsiwqf97/23/1980Diabetes: Urine Protein Kzukidcyr40/23/1987Hepatitis B Vaccines (1 of 3 - 19+ 3-dose series)09/10/1986Pneumococcal Vaccine: Pediatrics (0 to 5 Years) and At-Risk Patients (6 to 64 Years) (1 of 2 - PCV)09/10/1986Pap Smear09/10/1988Cervical Cancer Symlxnokj69/23/1998HPV/Futuev5809/10/19974019Sorkjaqgx88/23/2008Zoster Vaccines (1 of 2)09/10/2017COVID-19 Vaccine (2024- season)505/10/2020, 04/15/2021Influenza Vaccine (#1)5Adult Sxonqvf65/25/438157/, 12/16/2011HIB VaccinesAged OutNo longer eligible based on [...] patient's age to complete this topic Insurance Care Teams Team MemberRelationshipSpecialtyStart DateEnd Date Joe Barksdale DO [address] [address] PCP - GeneralFamily Medicine08/22/24
--- OUTSIDE RECORDS SUMMARY | 2025-04-24 13:24 | XMS_ITS | Clinical Summary ---
Author Organization [facility] Address [address] [place] [address] Care Team Providers Care 2Nd Grade Teacher Name Role Phone Joe Barksdale Lilli BETH Primary Care Provider [phone] Allergies Active AllergyReactionsCriticalityNoted DateCommentsClarithromycinItching 05/16/2007 nerve difficulty Cefuroxime YnhkjtBatogoy10/27/2007 nerve difficulty MgcgkykxgoiDfjesbe57/27/4430BowxynuxhnarAoidfqw14/27/2007 nerve difficulty LorazepamOther: See Mtukixke70/27/2022MetforminOther: See Zyewbqbn37/27/2022 QpokxqgbafroYojeeom12/27/2007 nerve difficulty Medications MedicationSigDispense QuantityRefillsLast FilledStart DateEnd DateStatus cetirizine hcl(ZYRTEC 10 MG TAB) Indications:Myalgia and myositis, unspecifiedTake one(1) tablet daily.0 05/16/2007ctive fluticasone/salmeterol(ADVAIR DISKUS 250 MCG-50 MCG/DOSE FOR INHALATION) Indications:Myalgia and myositis, unspecifiedTake one(1) inhalation twice daily; rinse and gargle mouth with water after each use.ctive esomeprazole mag trihydrate(NEXIUM 40 MG CAP) Take one(1) capsule daily.ctive mometasone furoate(NASONEX 50 MCG/ACTUATION SPRAY) [place] twice in each nostril once daily.ctive montelukast [...] with hyperglycemia, without long-term current use of rzbedkz8110/11/2021ensorineural hearing loss, qmmujhyqo65/29/2019CFS (chronic fatigue syndrome)09/20/2015Fibromyalgia 09/20/2015BMI 50.0-59.9, adult09/20/2015Binge eating rzqefpzs46/02/2016 Yulisa's xeeqsxa9009/20/2015Metabolic gkmbgsel27/02/2016 Family History Medical HistoryRelationCommentsHypertensionBrotherMIBrotherDiabetesFather Ischemic Heart DiseaseFatherKidney failureFatherStrokeFatherPulmonary embolism Motherpituitary tumorMotherRelationStatusCommentsBrotherAliveFatherDeceased MotherDeceased Social History Tobacco UseTypesPacks/DayYears UsedDateSmoking Tobacco: NeverSmokeless Tobacco: NeverAlcohol UseStandard Drinks/WeekCommentsNot Currently0 (1 standard drink = 0.6 oz pure alcohol)rarelyPHQ-2AnswerDate RecordedPHQ-2 bqvlt191rea Deprivation IndexAnswerDate RecordedNational Score (1-100), lower number is lower dopg778306/07/2022State Score (1-10), lower number is lower riskNot on file 3Data from: https://www.neighborhoodatlas.medicine.[facility].edu/. Last address used for juttjzcbpd[address]06/07/2022CommentsNoSex and Gender InformationValueDate RecordedSex Assigned at IsbxdZshmxg13/25/2022 10:20 PM ESTLegal ZdyKtacem35/02/2012 8:11 AM ESTGender JrpmbgtfDndlhg80/25/2022 10:20 PM ESTSexual OrientationNot on file Last Filed Vital Signs Vital SignReadingTime TakenCommentsBlood Faxlizqd673/9310/07/2021 1:46 PM EDT Zguac596110/07/2021 1:46 PM HFXPorvrmlupbk13.1 ??C (98.7 ??F)06/26/2008 12:30 PM ESTRespiratory Rate--Oxygen Saturation--Inhaled Oxygen Concentration--Weight 125.8 kg (277 lb 6.4 oz)10/07/2021 1:46 PM IIXGdmpkd874.1 cm (5' 5 )03/30/2016 3:51 PM ESTBody Mass Index46.16105/30/2015 3:51 PM EST Plan of Treatment Health MaintenanceDue DateLast DoneCommentsAnxiety Yqbebbrft37/23/1986Depression Wlpbfropg97/23/1986HIV Mwnqfblke22/23/1986Hepatitis B Vaccine (1 of 3 - 19+ 3- dose series)09/10/1986Cervical Cancer Bdvyjskxw80/23/1989Mammogram Screening 2007CT Kzdcluwfgrwq78/23/2013Cologuard (FIT-DNA)09/10/2012Colonoscopy 09/10/2012Colorectal Cancer Dyeljjgmt00/23/2013Fecal Occult Blood09/10/2012Lipid Liwuvwmjx44/23/6886Bzivxkyynwfne13/23/2013Pneumococcal Vaccine: 50+ (1 of 1 - PCV)09/10/2017Shingrix Vaccine (1 of 2)09/10/2017DTaP,Tdap,Td Vaccine (2 - Td or Tdap)/Diabetes Lbtxkrhlq18/, 10/07/2021, 06/16/2021, Additional history existsCovid-19 Vaccine (3 - 2024- season) /10/2020, 09/02/2020Influenza Vaccine (#1) Hepatitis C EmmkldabvFhelsylyo60/27/2007 Procedures Procedure NamePriorityDate/TimeAssociated DiagnosisCommentsCOMPREHENSIVE METABOLIC PFOJWWjtcqqj56/20/2022 2:42 PM EDT Controlled type 2 diabetes mellitus without complication, without long-term current use of insulin (HCC) HEP REMOTE PANEL FRNquuyzo15/27/2007 2:25 PM EST Myalgia And Myositis Nos from Last 3 Months or Most Recently Relevant to Health Maintenance Results * (ABNORMAL) COMP METABOLIC PANEL (10/07/2021 2:42 PM EDT)ComponentValueRef RangeTest MethodAnalysis TimePerformed AtPathologist SignatureProtein, Total 7.36.3 - 8.0 g/dL10/07/2021 8:04 PM [facility] LABAlbumin 4.83.9 - 4.9 g/dL10/07/2021 8:04 PM [facility] Calcium, Total10.3(H)8.5 - 10.2 mg/dL10/07/2021 8:04 PM [facility] LABBilirubin, Total0.50.2 - 1.3 mg/dL10/07/2021 8:04 PM EDT [facility] LABAlkaline Sretnbsisgv3849 - 123 U/L10/07/2021 8:04 PM [facility] PEACZM4096 - 35 U/L10/07/2021 8:04 PM [facility] YURMTK310 - 38 U/L10/07/2021 8:04 PM EDT [facility] FDBVgjyshy420(H)74 - 99 mg/dL10/07/2021 8:04 PM [facility] LABComment: The [place] Diabetes Association (ADA) provides guidance for cutoff [...] Standards of Medical Care in Diabetes 2016, [place] [employer]. Diabetes Care. 2016.39(Suppl 1). LZZ240 - 21 mg/dL10/07/2021 8:04 PM [facility] Creatinine0.700.58 - 0.96 mg/dL10/07/2021 8:04 PM [facility] BXMZtctbq897109 - 144 mmol/L10/07/2021 8:04 PM [facility] LABPotassium4.13.7 - 5.1 mmol/L10/07/2021 8:04 PM [facility] KYBLapwdtpd55669 - 105 mmol/L10/07/2021 8:04 PM [facility] PGFPK24959 - 30 mmol/L10/07/2021 8:04 PM [facility] LABAnion Toa198 - 18 mmol/L10/07/2021 8:04 PM [facility] LABEstimated Glomerular Filtration Qhiu630>=60 mL/min/1.73m 10/07/2021 8:04 PM [facility] LABComment:Estimated Glomerular Filtration Rate (eGFR) is [...] VolumeCollection TimeReceived TimeBloodBLOOD SPECIMEN / UnknownVenipuncture / Bqtoxft7410/07/2021 2:42 PM EDT10/07/2021 2:42 PM EDT Narrative Authorizing ProviderResult TypeResult StatusNeto Ansari MDLABORATORYFinal ResultPerforming OrganizationAddressCity/State/ZIP CodePhone Number [facility] [address] [address], * HEP REMOTE PANEL BL (05/16/2007 2:25 PM EST)ComponentValueRef RangeTest Method Analysis TimePerformed AtPathologist SignatureHep B Core Ab, TotalNegative NEGATCLEVEL[facility]INIC [facility]IN LABORATORYHep C Antibody IANegativeNEGATCLEVELAND CLINIC MAIN LABORATORYHBsAgNegativeNEGATCLEVELAND [facility] MAIN LABORATORYHep B Surface Ab, QualNegativeNEGATCLEVELAND CLINIC [...] Shar Seymour MDLABORATORYFinal ResultPerforming OrganizationAddressCity/State/ZIP CodePhone Number [facility] [address] [place] [address] from Last 3 Months or Most Recently Relevant to Health Maintenance Insurance Care Teams Team MemberRelationshipSpecialtyStart DateEnd Date Joe Barksdale DO [address] [place] [id number] [facility]08/01/18
--- OUTSIDE RECORDS SUMMARY | 2025-04-24 13:24 | XMS_ITS | Encounter Summary ---
Author Organization [facility] Address [address] [place] [address] Care Team Providers Care Executive Director Name Role Phone Joe Barksdale DO Primary Care Provider [phone] Encounter Details DateTypeDepartmentCare Team (Latest Contact Info)Yfawshsjoxl51/26/2025Telephone [facility] [address] [place] [address] uYlia Huffman MA Social History Tobacco UseTypesPacks/DayYears UsedDateSmoking Tobacco: NeverSmokeless Tobacco: NeverAlcohol UseStandard Drinks/WeekCommentsYes0 (1 standard drink = 0.6 oz pure alcohol)occasionalCommentsNoSex and Gender InformationValueDate Recorded Sex Assigned at GseczQtkkub59/13/2025 2:06 PM EDTLegal ZioIzhzhb85/19/2025 8:53 AM EDTGender ReijlxmkNlvhny68/13/2025 2:06 PM EDTSexual OrientationHeterosexual or Dqbyifoo49/13/2025 2:06 PM EDTdocumented as of this encounter Miscellaneous Notes * Telephone Encounter - Yulia Huffman MA - 04/15/2025 8:57 AM EST Pt informed and labs sent documented in this encounter Plan of Treatment Not on file documented as of this encounter Visit Diagnoses Not on filedocumented in this encounter Care Teams Team MemberRelationshipSpecialtyStart DateEnd Date Joe Barksdale DO [address] [place] [address] PCP - GeneralFamily Medicine08/22/24documented as of this encounter
--- OUTSIDE RECORDS SUMMARY | 2025-04-24 13:24 | XMS_ITS | Clinical Summary ---
Author Organization [facility] Address [address] [place] [address] Phone Care Team Providers Care Telephoner Name Role Phone Joe Barksdale DO Primary Care Provider [phone] Social History Tobacco UseTypesPacks/DayYears UsedDateSmoking Tobacco: Never Assessed CommentsUnknownSex and Gender InformationValueDate RecordedSex Assigned at Not on fileLegal EzuWnpgxr80/25/2022 1:13 PM ESTGender IdentityNot on fileSexual OrientationNot on file Plan of Treatment Health MaintenanceDue DateLast DoneCommentsCT Hlcddygxzodw30/23/1968Colonoscopy 1967Colorectal Cancer Vmcqvyucc55/23/1968FIT-DNA (Cologuard)1967FIT 1967HIV Iuemaggsj17/23/1968Lipid Panel09/11/19670297Nmmbhcnnayxzj96/23/1968 Yearly Adult Sfdhhpfp38/23/1968MMR Vaccines (1 of 1 - Standard series)09/10/1968 Hepatitis C Nwqauaihm52/23/1986Hepatitis B Vaccines (1 of 3 - 19+ 3-dose series) 09/10/1986Cervical Cancer Nciwpcdlx09/23/1989HPV/Shrehm9309/10/1988Pap Smear 09/10/1988DTaP/Tdap/Td Vaccines (1 - Tdap)09/10/19891605Gfmvzhitk85/23/2008 Pneumococcal Vaccine (1 of 1 - PCV)09/10/2017Zoster [...] Joe Barksdale DO [facility]09/27/22
--- OUTSIDE RECORDS SUMMARY | 2025-04-24 13:25 | XMS_ITS | CCD ---
Author Organization [facility] Care Team Providers Care Bed Worker Name Role Phone JEFF JON Primary Care [...] AGUILAR Primary Care Unavailable GIRCASSI, DR AGUILAR Consulting Unavailable DONTRELL, DR AGUILAR [...] Unavailable GIRCASSI, DR AGUILAR Admitting Unavailable Jeff oJn Unavailable Prieto, Dr. Ren Referring Unavaila ble Dontrell, Dr. Jeff Coleman Primary Care Unavaila ble Prieto, Dr. Ren Attending Unavaila ble Dontrell, Dr. Jeff Coleman Primary Care Unavaila ble Gircassi, Dr. Jeff Coleman Attending Unavaila ble Dontrell, Dr. Jeff Coleman Referring Unavaila ble Dontrell, Dr. Jeff Coleman Attending Unavaila Jeff Lopez Primary Care Physician [phone] DO Casper Nguyen Admitting Unavailabl e Casper [...] Unavailable DO Jeff Jon Primary Care Provider [phone] MD Logan Brown Attending Provider [phone] Jeff Jon DO Primary Care Unavailab le DeVaul PERSONNEL ADVISER-OPTOMETRIC COORDINATOR, Cass Zavaleta Attending Unav ailable Jeff Jon DO Primary Care Unavailab le DeVaul PERSONNEL ADVISER-OPTOMETRIC COORDINATOR, Cass Zavaleta Attending Unav ailable Jeff Jon DO Primary Care Unavailab le DeVaul PERSONNEL ADVISER-OPTOMETRIC COORDINATOR, Cass Zavaleta Attending Unav ailable Jeff Jon DO Primary Care Unavailab sanjeev George MD, Librado Kumar Attending Unavaila ble Jeff Jon DO Primary Care Provider [phone] Ly DO, Carol Rogers Attending Provider Jeff Jon DO Primary Care Provider Jeff Jon DO Attending Provider Lorena Rico APRN Attending Provider Jeff Jon Admitting Unavailable Jeff Jon Attending Unavailable Stephanie, oLgan S Admitting Unavailable Stephanie, Logan S Attending Unavailable Jeff Jon Primary Care Unavailable Ly, Carol L Admitting Unavailable Ly, Carol L Attending Unavailable Jeff Jon Primary Care Unavailable Ly, Carol L Admitting Unavailable Ly, Carol L Attending Unavailable Jeff Jon Primary Care Unavailable Jeff Jon DO Primary Care Provider [phone] Jeff Jon DO Attending Provider Jacky PERSONNEL ADVISERLorena Lea Attending Provider [place] Admitting Unavailable ABNER, MARCIOAB Attending Unavailable NEO ESPINO Attending Unavailable MOUKANEO DESAI Attending Unavailable NEO ESPINO Attending Unavailable [place], [facility] Referring Unavailable Jeff Jon DO Primary Care Provider [phone] Jeff Jon DO Attending Provider Neo Espino MD, V Attending Provider Jeff Jon DO Primary Care Provider Jeff Jon DO Attending Provider Jeff Jon DO Primary Care Provider Jeff Jon MD Primary Care Provider [phone] Allergies Allergy ClassificationReported Allergen(s)Allergy TypeDate of OnsetReaction(s) FacilityMacrolides (antibiotic) (1 source)ClarithromycinDrug Ipktyuj76-66-0099luknzvfrZnhnwlqay Regional Medical CenterQuinolones (antibiotic) (2 sources)levoFLOXacinDrug Ihkilio12-50-4398Rgcwjjxit Pain, itches/pain, Abdominal PainThe [facility] (6 sources)Cefuroxime; Translations: [CEFUROXIME AXETIL]Drug Lrwainj41-88-6042 [facility]Prom[facility] (20 sources)Clarithromycin; Translations: [CLARITHROMYCIN]Drug Nrnmqkk05-62-0203 ItchingProm[facility] (15 sources)Fluconazole; Translations: [FLUCONAZOLE]Drug Byohtel88-48-8387 [facility]Ohio [facility] (20 sources)gatifloxacin; Translations: [GATIFLOXACIN]Drug Fpexgrj75-42-0518 ItchingPromedica Bay [facility] (20 sources)levoFLOXacin; Translations: [LEVOFLOXACIN]Drug Djeheml09-38-4381 [facility]chOhio [facility] (17 sources)LORazepam; Translations: [LORAZEPAM]Drug Ifvhrum78-86-8753Czbti: See CommentsPromedica Bay Park Hospital (20 sources)metFORMIN; Translations: [METFORMIN]Drug Enshbem35-98-0338Sekji: See [facility] (20 sources)FluconazoleDrug AllergyitchingEvergreenhealth [facility] [employer] Other (20 sources)gatifloxacin; Translations: [Tequin]Drug Avxqcgr13-19-5940RwkyjtgXoj [facility] Repository (20 sources)levoFLOXacin; Translations: [Levaquin]Drug Xrfoqdc68-09-8497 itches/painJoint [facility] (20 sources)LORazepamDrug Allergymade wired /unable to [facility] [employer] Other (3 sources)metFORMINDrug AllergyheadSelect Medical [facility] Other (2 sources)Clarithromycin; Translations: [Biaxin]Drug Zozqpyv41-90-5855Eil [facility] Repository (1 source)PentamidineDrug AllergyJoint Township District Memorial Hospital Repository (2 sources)Percocet Tablets; Translations: [Percocet Tablets]Propensity to adverse reactions to drugnausea and vomitingMagruder Memorial Hospital (2 sources)Vicodin Tablets; Translations: [Vicodin Tablets]Propensity to adverse reactions to drugnausea and vomitingMagruder Memorial Hospital (1 source)ClarithromycinDrug Bnvskef29-14-8805NjlwimhycThe [facility] Repository (1 source)gatifloxacinDrug Rmkisrh74-64-3848IthtykxinThe [facility] Repository (1 source)levoFLOXacinDrug Zsgzcub07-84-9861DygzztkgjThe [facility] Repository (3 sources)Cefuroxime; Translations: [CEFUROXIME]Drug Dywasqe09-69-2055Psscstz [facility] Repository (2 sources)ClarithromycinAllergy to qsjzjdvho03-90-1300Dfakkkzs, ItchingNOMS Healthcare (2 sources)GatifloxacinAllergy to egqggpabg98-78-3431LL intolerance, ItchingNOMS Healthcare (2 sources)LorazepamAllergy to jbylyisam92-26-7141AozgrhuCWWW Healthcare Medications Current Medications MedicationDrug Class(es)DatesSig (Normalized)Sig [...] inhalation solution (20 sources)beta2-Adrenergic AgonistStart: 03-19-2025 End: 01-08-1925nzao 2.5 mg by inhalation four times daily as needed for wheezing Albuterol Sulfate 2.5 mg /3 mL (0.083 %) solution for nebulization Active 2.5 MG INHALATION Four times daily as needed for shortness of breath or wheezing 75 2 March 19, 2025 11:31am Complies with drug therapyStart: 03-26-2024 End: 55-21-5226Rndnxxxka Sulfate 90 mcg/actuation HFA aerosol inhaler Active 2 INH INHALATION Every 6 hours as needed for shortness of breath or wheezing 8.5 1 March 19, 2025 11:31am Complies with drug therapyStart: 33-82-5325Huykunomk Sulfate (Proair Hfa) 90 mcg/actuation HFA aerosol inhaler Active INHALATION August 28, 2023 12:00am FreeTextSi inhalations Inhalation q4 hrs prn; Note: Source Status: Continueprn; Provider: Dontrell Aguilar CStart: 08-28-2023 End: 38-15-0191ygaq 3 mL by inhalation every six hours as neededAlbuterol Sulfate 2.5 mg /3 mL (0.083 %) solution for nebulization Discontinued 2.5 MG INHALATION Every 6 hours as needed for shortness of breath or wheezing August 28, 2023 12:00am March 19, 2025 11:31am 3 ml as needed Inhalation every 6 hrs; Note: Source Status: Continueprn; Provider: Jacky Mayestart: 08-28-2023 End: 86-47-5037Qieoidham Sulfate (Proair Hfa) 90 mcg/actuation HFA aerosol inhaler Discontinued INHALATION August 28, 2023 12:00am March 26, 2024 1:03pm FreeTextSi inhalations Inhalation q4 hrs prn; Note: Source Status: Continueprn; Provider: Dontrell Aguilar CStart: 71-74-0021Ohqodagrh Sulfate (2.5 MG/3ML) 0.083% 3 ml as needed Inhalation every 6 hrs prn Nov, Active Start: 98-88-1514Khyftklan Sulfate (2.5 MG/3ML) 0.083% 3 ml as needed Inhalation every 6 hrs prn Nov, ActiveStart: 77-18-8687zqzu 2 puff(s) by inhalation every four hours as neededAlbuterol Sulfate HFA 108 (90 Base) MCG/ACT 2 puffs as needed Inhalation every 4 hrs for 30 day(s) Aug, Active Start: 52-51-0437ZhsAve HFA 108 (90 Base) MCG/ACT 2 inhalations Inhalation q4 hrs prn prn Oct, Activeamitriptyline hydrochloride 25 mg oral tablet (1 source)Tricyclic AntidepressantStart: 05-10-2023 End: 24-25-4625qjck 1 tablet by mouth once daily at bedtimeamitriptyline 25 mg Tab 25 mg = 1 tab(s), Oral, Once a day (at bedtime), X 30 day(s), # 30 tab(s), R efills(s) 2, Pharmacy: [facility]/pharmacy #[id number], 166, cm, 05/10/23 14:36:00 EST, Height/Length Dosing, 123.7, kg, 05/10/23 14:36:00 EST, Weight Dosing Start Date: 05/10/23 Stop Date: 08/08/23 Status: OrderedamLODIPine 5 mg oral tablet (1 source)Dihydropyridine Calcium Channel BlockerStart: 31-87-1194xopr 1 tablet by mouth every twenty-four hoursamLODIPine Besylate 5 MG 1 tablet Orally Once a day for 30 days Jun, Activeatorvastatin 40 mg oral tablet (13 sources)HMG-CoA Reductase InhibitorStart: 19-41-3164fhmb 1 tablet by mouth once dailyAtorvastatin 40 mg tablet Active 40 MG PO Daily February 24, 2025 12:00am Complies with drug therapyStart: 09-01-2024 End: 37-80-1354pelg 1 tablet by mouth once dailyAtorvastatin 20 mg tablet Discontinued 20 MG PO Daily September 01, 2024 12:00am November 27, 2024 11:42am azithromycin 500 mg oral tablet (1 source)Macrolide AntimicrobialStart: 19-53-0789weid 1 tablet by mouth once dailyAzithromycin (Zithromax) 500 mg tablet Active 500 MG PO Daily 5 5 0 March 19, 2025 12:00am Complies with drug therapybetamethasone 0.5 mg/ml / clotrimazole 10 mg/ml topical cream (20 sources)Azole Antifungal, CorticosteroidStart: 04-10-2019 End: 03-63-7561Oeapmrbkckbw-Betamethasone 1-0.05 % cream Active 1 APPLIC TOPICAL Twice daily as needed for as directed July 16, 2024 11:35am FreeTextSi application Externally Twice a day; Note: Source Status: Takingprn; Refills: 3; Qty: 135 gm; Provider: Dontrell Reeder Complies with drug therapyCentrum (1 source)Start: 99-69-4891Vhebgsz Oral, Daily, Refill(s) 0 Start Date: 02/22/11 Status: Orderedcholecalciferol 0.05 mg oral tablet (20 sources)Vitamin DStart: 08-28-2023 End: 77-37-4281qyzk 1 tablet by mouth once dailyCholecalciferol (Vitamin D3) 50 mcg (2,000 unit) tablet Active 2000 UNIT PO Daily August 28, 2023 10:48am FreeTextSi tablet Orally Once a day; Note: Source Status: Taking; Provider: Dontrell Reeder Complies with drug therapyStart: 01-59-1920sqtt 1 tablet by mouth every twenty-four hoursVitamin D3 50 MCG (2000 UT) 1 tablet Orally Once a day Feb, ActiveStart: 58-07-0495Xoczoyb D3 125 MCG (5000 UT) as directed Orally once weekly Mar, ActiveStart: 59-22-2259ofks 25 ug by mouth once dailyVitamin D 25 MCG (1000 UT) 5000 units Orally Once a day Dec, Active Start: 99-66-1171zouwhrdgdfqeo 10 mg oral tablet (3 sources)Sodium-Glucose Cotransporter 2 InhibitorStart: 73-74-2882tvky 1 tablet by mouth once dailyDapagliflozin Propanediol (Farxiga) 10 mg tablet Active 10 MG PO Daily February 24, 2025 12:00am Complies with drug ulprsww03 hr dilTIAZem hydrochloride 240 mg extended release oral capsule (20 sources)Calcium Channel BlockerStart: 30-76-1125abem 1 mg by mouth every twenty-four hoursDiltiazem Hcl (Cartia Xt) 240 mg capsule,extended release 24hr Active MG PO February 24, 2025 12:00am Complies with drug therapyStart: 09-08-2024 End: 64-08-0117rlgo 1 capsule by mouth once dailyDiltiazem Hcl 240 mg capsule,extended release 24hr Discontinued 240 MG PO Daily September 08, 2024 10: 07am November 27, 2024 11:43amStart: 09-01-2024 End: 45-01-2377fzfy 1 capsule by mouth every twenty-four hoursDiltiazem Hcl 240 mg capsule,extended release 24hr Discontinued MG PO September 01, 2024 12:00am September 08, 2024 10:07amStart: 09-01-2024 End: 43-34-4054fxvi 1 capsule by mouth every twenty-four hoursDiltiazem Hcl 240 mg capsule,extended release 24hr Discontinued MG PO September 01, 2024 12:00am September 08, 2024 10:07amdoxycycline hyclate 100 mg oral capsule (4 sources)Tetracycline-class Drugtake 1 capsule by mouth every twelve hours Doxycycline Hyclate 100 MG 1 capsule Orally every 12 hrs for 10 day(s) Active estrogens, conjugated (residential) 0.45 mg oral tablet (1 source)EstrogenStart: 36-90-1411mqpl 1 tablet by mouth once dailyPremarin 0.45 mg Tab 0.45 mg = 1 tab(s), Oral, Daily, tab(s), Refills(s) 0 Start Date: 02/22/11 Status: Orderedfluticasone propionate 0.05 mg/actuat metered dose nasal spray (20 sources)CorticosteroidStart: 18-43-0525roxa 2 spray(s) nasal route in the morningfluticasone (Flonase) 50 MCG/ACT nasal spray Administer 2 sprays into each nostril in the morning. 08/14/2022 ActiveStart: 70-06-7358gknn 1 spray(s) nasal route once dailyFluticasone Propionate 50 MCG/ACT 1 spray in each nostril Nasally Once a day Apr, ActiveStart: 86-23-3522qxfv 1 spray(s) nasal route once dailyFluticasone Propionate 50 MCG/ACT 1 spray in each nostril Nasally Once a day Apr, ActiveStart: 37-69-0467Dcqggvmlnrm Propion-Salmeterol (20 sources)Corticosteroid, beta2-Adrenergic AgonistStart: 76-36-1582Uptnowlsank Propion-Salmeterol (Advair Diskus) 250-50 mcg/dose blister with device Active 1 INH INHALATION Q12H 3 90 3 December 18, 2024 8:30am Complies with drug therapy Start: 26-71-6690Luwzzhnuvij Propion-Salmeterol (Advair Diskus) 250-50 mcg/dose blister with device Active 1 INH INHALATION Q12H 3 90 December 18, 2024 8:30am Complies with drug therapyStart: 10-29-2023 End: 96-35-3314Dcphzcvzxfz Propion-Salmeterol (Advair Diskus) 250-50 mcg/dose blister with device Discontinued 1 INH INHALATION Q12H 3 90 3 October 29, 2023 1:18pm December 18, 2024 8:30amStart: 10-29-2023 End: 65-20-0612Fxumuqaxgck Propion-Salmeterol (Advair Diskus) 250-50 mcg/dose blister with device Discontinued 1 INH INHALATION Q12H 3 October 29, 2023 1:18pm December 18, 2024 8:30amStart: 03-22-7119Apjchzdfkll Propion-Salmeterol (Advair Diskus) 250-50 mcg/dose blister with device Active 1 INH INHALATION Q12H October 29, 2023 1:18pm Complies with drug therapyStart: 84-51-1798Kxbja: 83-07-9575Njtywsrqmnu Propion-Salmeterol (Advair Diskus) 250-50 mcg/dose blister with device Active 1 INH INHALATION Q12H October 29, 2023 12:18pmStart: 63-61-5597Eqmmldglxve Propion-Salmeterol (Advair Diskus) 250-50 mcg/dose blister with device Active 1 INH INHALATION Q12H October 29, 2023 1:18pmStart: 09-14-2017 End: 29-45-9593Ytpadalhwls Propion-Salmeterol (Advair Diskus) 250-50 mcg/dose Blister With Device Discontinued 1 INH INHALATION Q12H September 13, 2017 11:00pm October 29, 2023 12:20pmStart: 09-14-2017 End: 35-37-0518Vcjmxmcxyvl Propion-Salmeterol (Advair Diskus) 250-50 mcg/dose Blister With Device Discontinued 1 INH INHALATION Q12H September 14, 2017 12:00am October 29, 2023 1:20pmStart: 24-79-9653Flvnzezbvwd Propion-Salmeterol (Advair Diskus) 250-50 mcg/dose Blister With Device Active 1 INH INHALATION Q12H September 14, 2017 12:00amStart: 29-98-8804leco 1 puff(s) by inhalation twice daily Advair 250 mcg-50 mcg Powder 1 puff(s), Inhalation, BID, EA, Refill(s) 0 Start Date: 02/22/11 Status: OrderedStart: 19-33-7031obfypauzukb/salmeterol(ADVAIR DISKUS 250 MCG-50 MCG/DOSE FOR INHALATION) Indications: [...] 40 mg oral tablet (3 sources)Loop DiureticStart: 04-11-9966tckb 1 tablet by mouth once daily Furosemide 40 mg tablet Active 40 MG PO Daily February 24, 2025 12:00am Complies with drug therapylevothyroxine sodium 0.175 mg oral tablet (20 sources)l-ThyroxineStart: 53-68-1097ybvy 1 tablet by mouth once daily in the morningLevothyroxine 175 mcg tablet Active 175 MCG PO Daily 90 0 March 02, 2025 12:00am take first thing in the morning on an empty stomach, do not eat or drink for 45 minutes after taking Complies withdrug therapyStart: 11-27-2024 End: 15-67-4889vlkh 1 tablet by mouth once daily in the morningLevothyroxine 200 mcg tablet Discontinued 200 MCG PO Daily 90 90 November 27, 2024 12:00am March 02, 2025 12:14pm take first thing in the morning on an empty stomach, do not eat or drink for 45 min after takingStart: 08-18-2024 End: 98-45-4420pzzx 2 tablets by mouth once daily in the morningLevothyroxine 100 mcg tablet Discontinued 200 MCG PO Daily 180 3 August 18, 2024 12:00am November 27, 2024 12:21pm take first thing in the morning on an empty stomach, do not eat or drink for 30-45 min after takingStart: 08-18-2024 End: 08-73-4316Flerckypkwvnd (Synthroid) 25 mcg tablet Discontinued 25 MCG PO Daily 90 0 August 18, 2024 12:00am September 08, 2024 10:58am take first thing in the morning on an empty stomach, do not eat or drink anything for 30-45 min after taking. Take in addition to 200 MCG (2- 100 MCG tablets) daily for a total of 225 MCG dailyStart: 08-28-2023 End: 79-93-5756apsi 1 tablet by mouth once daily in the morningLevothyroxine (Synthroid) 200 mcg tablet Discontinued 200 MCG PO Daily 90 1 August 28, 2023 11:47amApril 2023 12:49pm take on an empty stomach first thing in the morning do not eat or drink for 30-45 min after takingStart: 73-27-6608Aphaeosmw 200 mcg (0.2 mg) Tab Refills(s) 0 Start Date: 05/10/23 Status: OrderedStart: 26-54-4498sxzfjtyvsgjxf (SYNTHROID) 200 mcg tablet Take one tablet daily. 90 tablet 1 10/13/2021 ActiveStart: 07-22-2021 End: 05-77-1009thcq 2 tablets by mouth once dailylevothyroxine (SYNTHROID) 112 mcg tablet Take 2 tablets by mouth once daily. 180 tablet 3 07/22/2021 10/13/2021 Discontinued (Course of therapy completed)Start: 36-19-5873huus 1 tablet by mouth in the morningSynthroid 175 MCG 1 tablet in the morning on an empty stomach Orally alternating with 200 MCG for 90 days PT REQUESTING MYLAN BRAND Oct, ActiveStart: 09-14-2017 End: 28-95-5131zvhq 1 tablet by mouth once dailyLevothyroxine (Synthroid) [...] mg/actuat metered dose nasal spray (20 sources)CorticosteroidStart: 94-80-6292Stdll: 80-55-1870Iegzee 0.1 % 1 application Externally Once a day for 90 days prn Mar, ActiveStart: 54-98-7939Espmgwhrjp (Elocon) 0.1 % Cream Active 1 APPLIC TOPICAL Daily as needed for Rash September 14, 2017 12:00am Complies with drug therapyStart: 09-14-2017 End: 00-40-9048Gvomsidvgz (Nasonex) 50 mcg/actuation spray,non-aerosol Active 2 SPRAY INTRANASAL Daily as needed for allergic symptoms July 16, 2024 11:35am Complies with drug therapyStart: 97-45-9893Xbygowv Nasal, Daily, Refill(s) 0 Start Date: 02/22/11 Status: OrderedStart: 31-13-5448xtvpskbjzj furoate(NASONEX 50 MCG/ACTUATION SPRAY) Combs twice in each nostril once daily. 0 06/26/2008 Activemometasone (Elocon) 0.1 % cream Elocon ActiveComment on above:Combs twice in each nostril once daily.ProAir HFA 108 (90 Base) MCG/ACT (20 sources)Start: 47-11-7326AyaKpk HFA 108 (90 Base) MCG/ACT 2 inhalations Inhalation q4 hrs prn prn Oct, Activespironolactone 25 mg oral tablet (3 sources)Aldosterone AntagonistStart: 78-11-7700svbg 0.5 tablet by mouth in the morningSpironolactone 25 mg tablet Active 25 MG PO .COMPLEX February 24, 2025 12:00am 25 mg orally TAKE 1/2 TABLET BY MOUTH IN THE MORNING; Complies with drug therapytraMADol hydrochloride 50 mg oral tablet (6 sources)Opioid AgonistStart: 02-24-2025 End: 15-62-0428hszl 1 tablet by mouth twice daily as needed for painTramadol 50 mg tablet Active 50 MG PO Twice daily as needed for pain 60 30 0 March 02, 2025 12:22pm Chronic pain Other chronic pain Complies with drug therapyStart: 25-93-1447fabqcgmc Refills(s) 0 Start Date: 05/10/23 Status: OrderedvalACYclovir 1000 mg oral tablet (10 sources)Herpesvirus Nucleoside Analog DNA Polymerase Inhibitor, Herpes Simplex Virus Nucleoside Analog DNA Polymerase Inhibitor, Herpes Zoster Virus Nucleoside Analog DNA Polymerase InhibitorStart: 14-04-7255zpic 1 tablet by mouth every eight hoursValtrex 1 GM 1 tablet Orally tid for 7 days Apr, ActiveVitamin D (1 source)Start: 72-72-3583Gnjtylj D Refills(s) 0 Start Date: 05/10/23 Status: OrderedVitamin D 25 MCG (1000 UT) (13 sources)Start: 90-70-6704dhgj 25 ug by mouth once dailyVitamin D 25 MCG (1000 UT) 5000 units Orally Once a day Dec, Active Completed/Discontinued Medications MedicationDrug Class(es)DatesSig (Normalized)Sig (Original)amoxicillin 875 mg / clavulanate 125 mg oral tablet (20 sources)Penicillin-class AntibacterialStart: 03-05-2025 End: 75-45-8354wojn 1 tablet by mouth twice daily at mealtimeAmoxicillin-Pot Clavulanate 875-125 mg tablet Discontinued 1 TAB PO Twice daily 20 March 05, 2025 12:00am March 19, 2025 11:10am with foodStart: 10-24-2024 End: 91-96-3605uhop 1 tablet by mouth twice daily at mealtimeAmoxicillin-Pot Clavulanate 875-125 mg tablet Discontinued 1 TAB PO Twice daily October 24, 2024 12:00am November 27, 2024 11:42am with foodStart: 01-08-2024 End: 32-35-5360unee 1 tablet by mouth twice daily at mealtimeAmoxicillin-Pot Clavulanate 875-125 mg tablet Discontinued 1 TAB PO Twice daily January 08, 2024 12:00am March 26, 2024 12:37pm with foodStart: 14-19-9776lcxd 1 tablet by mouth every twelve hoursAmoxicillin-Pot Clavulanate 875-125 MG 1 tablet Orally every 12 hrs for 10 day(s) Oct, ActiveStart: 11-14-2022 take 1 tablet by mouth twice daily at mealtimeAmoxicillin-Pot Clavulanate 875- 125 MG 1 tablet Orally bid with food Mar, ActiveStart: 22-08-1908enmp 1 tablet by mouth twice daily at mealtimeAmoxicillin-Pot Clavulanate 875-125 MG 1 tablet Orally two times a day with food for 10 day(s) Oct, ActiveStart: 45-73-6423oltm 1 tablet by mouth twice daily at mealtimeAmoxicillin-Pot Clavulanate 875-125 MG 1 tablet Orally bid with food for 10 day(s) Jul, Activeaspirin 81 mg chewable tablet (10 sources)Platelet Aggregation Inhibitor, Nonsteroidal Anti-inflammatory Drug Start: 09-01-2024 End: 88-02-2118hjum 1 tablet by mouth once dailyAspirin 81 mg tablet,chewable Discontinued 1 TAB PO Daily September 01, 2024 12:00am November 27, 2024 11:42am cefTRIAXone (20 sources)Cephalosporin AntibacterialStart: 39-73-8229Npmrgxrs 500 mg Aug, 1 gcetirizine hydrochloride 10 mg oral tablet (20 sources)Histamine-1 Receptor AntagonistStart: 05-16-2007 End: 46-87-7030acip 1 tablet by mouth once dailyCetirizine (Zyrtec) [...] oral tablet (20 sources)Muscle RelaxantStart: 01-30-2018 End: 93-06-1578nyye 1 tablet by mouth once daily at bedtimeCyclobenzaprine 10 mg tablet Discontinued 10 MG PO Daily at bedtime 5 0 December 16, 2024 9:14am Octob er 2024 11:44am TAKE 1 TABLET AT BEDTIMEStart: 52-73-3433Yjuwp: 09-14-2017 End: 91-29-8018hvpb 1 tablet by mouth three times daily as needed for muscle spasmsCyclobenzaprine 10 mg Tablet Discontinued 10 MG PO Three times daily as needed for Muscle Spasm September 14, 2017 12:00am September 16, 2017 1:16pm empagliflozin 10 mg oral tablet (5 sources)Sodium-Glucose Cotransporter 2 InhibitorStart: 11-27-2024 End: 34-93-6122zgfk 1 tablet by mouth once daily in the morningEmpagliflozin (Jardiance) 10 mg tablet Discontinued 10 MG PO Every morning 3 November 27, 2024 12:00am February 24, 2025 11:08amesomeprazole 40 mg delayed release oral capsule (20 sources)Proton Pump InhibitorStart: 06-26-2008 End: 46-60-1056xojj 1 capsule by mouth once dailyEsomeprazole Magnesium (Nexium) 40 mg Capsule,Delayed Release(Dr/Ec) Discontinued 40 MG PO Daily September 14, 2017 12:00am April 22, 2024 9:16amComment on above:Take one(1) capsule daily.84 hr estradiol 0.65068 mg/hr transdermal system (20 sources)EstrogenStart: 09-14-2017 End: 87-57-2528Wvndmraul (Vivelle-Dot) 0.0375 mg/24 hr Patch Semiweekly Discontinued 1 PATCH TRANSDERML Once 2017 12:00am August 28, 2023 11:12amglimepiride 1 mg oral tablet (20 sources)SulfonylureaStart: 02-22-2023 End: 56-06-1903Kbknqrccgvu 1 mg tablet Discontinued 1 MG PO Daily August 28, 2023 10:09am August 28, 2023 11:12am 1 tablet with breakfast or the first main meal of the day Orally Once a day; Note: Source Status: Start; Refills: 1; Qty: 90 Tablet; Provider: Dontrell Aguilar ( )hydroCHLOROthiazide 25 mg / triamterene 37.5 mg oral capsule (20 sources)Potassium-sparing Diuretic, Thiazide DiureticStart: 09-26-2023 End: 38-12-8462wtox 1 capsule by mouth once daily in the morningTriamterene- Hydrochlorothiazid 37.5-25 mg capsule Discontinued 1 CAP PO Every morning 30 0 September 12:00am April 11, 2024 1:05pmStart: 46-64-6661qvmb 1 capsule by mouth in the morningtriamterene-hydroCHLOROthiazide (Dyazide) 37.5-25 MG capsule Indications: Asymmetric SNHL (sensorineural hearing loss) Take 1 capsule by mouth in the morning. 30 capsule 1 09/24/2023 Activehydrocortisone 10 mg/ml / neomycin 3.5 mg/ml / polymyxin b 88989 unt/ml otic solution (12 sources)Aminoglycoside Antibacterial, Polymyxin-class Antibacterial, CorticosteroidStart: 49-85-5853Amrsunne-Polymyxin-HC 3.5-67931-5 4 drops into affected ear Otic Three times a day for 7 days Jul, Not-TakingKetorolac (20 sources)Nonsteroidal Anti-inflammatory Drug, Cyclooxygenase InhibitorStart: 78-51-8510Upgtics per 15 mg Jul, 2 cclisinopril 10 mg oral tablet (20 sources)Angiotensin Converting Enzyme InhibitorStart: 09-16-2017 End: 96-58-5034vxya 1 tablet by mouth once dailyLisinopril 10 mg tablet Discontinued 10 MG PO Daily 30 0 September 16, 2017 12:00am August 28, 2023 11 :13amlosartan potassium 50 mg oral tablet (20 sources)Angiotensin 2 Receptor BlockerStart: 11-27-2024 End: 01-01-5554ahjv 1 tablet by mouth once dailyLosartan 50 mg tablet Discontinued 50 MG PO Daily 90 November 27, 2024 12:14pm February 24, 2025 11: 08amStart: 12-05-2023 End: 00-70-6849rxqs 1 tablet by mouth once dailyLosartan 50 mg tablet Discontinued 50 MG PO Daily 90 April 22, 2024 9:14am September 08, 2024 10 :07amStart: 35-31-5126ulbokcgs Refills(s) 0 Start Date: 05/10/23 Status: Ordered Start: 02-22-2023 End: 94-18-7757vfvb 1 tablet by mouth once dailyLosartan 50 mg tablet Discontinued 50 MG PO Daily August 28, 2023 12:00am August 28, 2023 11:13am Fr eeTextSi tablet Orally Once a day; Note: Source Status: Taking; Refills: 3; Qty: 90 Tablet; Provider: Kg Queentart: 43-47-7273xrfa 1 tablet by mouth every twenty-four hoursLosartan Potassium 25 MG 1 tablet Orally Once a day for 30 days Oct, Activemeloxicam 15 mg oral tablet (20 sources)Nonsteroidal Anti-inflammatory DrugStart: 02-24-2025 End: 08-75-6880mdso 1 tablet by mouth once dailyMeloxicam 15 mg tablet Discontinued 15 MG PO Daily February 24, 2025 11:18am February 24, 2025 11:32am Start: 01-26-2025 End: 06-56-7317cfpr 1 tablet by mouth once dailyMeloxicam 15 mg tablet Discontinued 0 .ROUTE .COMPLEX 90 January 26, 2025 8:53am February 24, 2025 11:19am TAKE 1 TABLET BY MOUTH DAILYStart: 06-13-2024 End: 81-19-2028cgxq 1 tablet by mouth once dailyMeloxicam 15 mg tablet Discontinued 15 MG PO Daily June 13, 2024 1:22pm January 26, 2025 8:54am Start: 01-14-2024 End: 73-68-2335Tbrzcrxfv 15 mg tablet Discontinued 0 .ROUTE .COMPLEX 90 3 January 14, 2024 10:16am June 13, 2024 1:23pm TAKE 1 TABLET DAILYStart: 01-14-2024 End: 00-38-7316Fdizoqfxc 15 mg tablet Discontinued 0 .ROUTE .COMPLEX 90 January 14, 2024 10:16am June 13, 2024 1:23pm TAKE 1 TABLET DAILYStart: 01-14-2024 End: 59-28-8875Hodyypaaj 15 mg tablet Discontinued 0 .ROUTE .COMPLEX 90 January 14, 2024 9:16am June 13, 2024 12:23pm TAKE 1 TABLET DAILYStart: 76-55-2858Upcdmfitz 15 mg tablet Active 0 .ROUTE .COMPLEX 90 January 14, 2024 9:16am TAKE 1 TABLET DAILYStart: 79-00-7279Gvzxmaiuj Active 0 .ROUTE .COMPLEX 90 January 14, 2024 9:16am TAKE 1 TABLET DAILYStart: 68-50-3351Aqqrvbstl Active 0 .ROUTE .COMPLEX 90 January 14, 2024 10:16am TAKE 1 TABLET DAILYStart: 07-01-2021 End: 71-62-1805gbpa 1 tablet by mouth once dailyMeloxicam 15 mg tablet Discontinued 15 MG PO Daily August 28, 2023 12:00am January 14, 2024 10:17am TAKE 1 TABLET DAILY; Refills: 0; Provider: Dontrell Aguilar C24 hr metFORMIN hydrochloride 500 mg extended release oral tablet (20 sources)BiguanideStart: 06-13-2024 End: 92-78-9700Oinbneagi 500 mg tablet extended release 24 hr Discontinued 1000 MG PO .[facility] June 13, 2024 1:22pm February 24, 2025 11:09am 1,000 mg orally BID as normal;Start: 01-14-2024 End: 81-75-4404Morpwdamd 500 mg tablet extended release 24 hr Discontinued 0 .ROUTE .[place] [id number] April 22, 2024 9:13am June 13, 2024 1:23pm TAKE 2 TABLETS TWICE A DAY WITH MEALSStart: 01-14-2024 End: 31-03-5982Aqpbwrrqb 500 mg tablet extended release 24 hr Discontinued 0 .ROUTE .[place] [address] January 130:41am April 22, 2024 9:14am TAKE 2 TABLETS TWICE A DAY WITH MEALSStart: 01-14-2024 End: 95-79-7088Icojtiufe 500 mg tablet extended release 24 hr Discontinued 0 .ROUTE .[place] [address] January 1349:41am April 22, 2024 8:14am TAKE 2 TABLETS TWICE A DAY WITH MEALSStart: 13-78-8387Lgghpocbl Active 0 .ROUTE [place] [address] January 14, 2024 9:41am TAKE 2 TABLETS TWICE A DAY WITH MEALS Start: 95-62-7105Qdwqnhsyj Active 0 .ROUTE .[place] [address] January 14, 2024 10:41am TAKE 2 TABLETS TWICE A DAY WITH MEALSStart: 01-14-2024 End: 96-86-4416eqym 2 tablets by mouth twice daily at mealtimeMetformin 500 mg tablet extended release 24 hr Discontinued 500 MG PO .[facility] January 14, 2024 10:36am January 14, 2024 10:42am 500 mg orally take 2 (500 mg) tabs twice a day with meals;Start: 10-29-2023 End: 56-82-3295sreu 1 tablet by mouth once dailyMetformin 500 mg tablet extended release 24 hr Discontinued 500 MG PO Daily October 29, 2023 2:48pm January 14, 2024 10:37amStart: 60-12-7877qwbtwkqks Refills(s) 0 Start Date: 05/10/23 Status: OrderedStart: 54-88-3538urxe 2 tablets by mouth twice daily at mealtime metFORMIN HCl ER 500 MG 2 tablets Orally bid with meals for 90 days Oct, ActiveStart: 07-80-0157bxbw 2 tablets by mouth twice dailymetFORMIN ER (GLUCOPHAGE XR) 500 mg 24 hr tablet Take 2 tablets by mouth twice daily. 360 tablet 3 07/22/2021 ActiveStart: 25-87-6253uiaWUQWUR HCl 500 MG 1 tablet with largest meal of the day Orally Once a day Oct, ActiveStart: 09-14-2017 End: 80-25-1651Tgjzlmzao 500 mg Tablet Extended Release 24 Hr Discontinued 500 MG PO Every 48 hours September 14, 2017 12:00am October 29, 2023 2:48pmComment on above:Take 2 tablets by mouth twice daily.montelukast 10 mg oral tablet (20 sources)Leukotriene Receptor AntagonistStart: 02-22-2011 End: 38-43-8380cbyk 1 tablet by mouth once daily at bedtimeMontelukast (Singulair) 10 mg Tablet Discontinued 10 MG PO Daily at bedtime September 14, 2017 12:00am April 22, 2024 9:15amComment on above:Take 10 mg by mouth daily at bedtime.Swvfuzed-Neo-Inbjlla Gluconate (Centrum) 9 mg iron/15 mL Liquid (20 sources)Start: 09-14-2017 End: 56-41-8919hhxw 2 tablets by mouth once qyzehRleoskar-Tjb-Vkflcfp Gluconate (Centrum) 9 mg iron/15 mL Liquid Discontinued 2 TAB PO Daily September 13, 2017 11:00pm August 28, 2023 10:13amStart: 09-14-2017 End: 75-02-0423tkkr 2 tablets by mouth once vckfzUorizptr-Owx-Kdbennm Gluconate (Centrum) 9 mg iron/15 mL Liquid Discontinued 2 TAB PO Daily September 14, 2017 12:00am August 28, 2023 11:13amMULTIVIT-MINERALS/FERROUS GLUC (CENTRAM-CARE ORAL) (5 sources)MULTIVIT-MINERALS/FERROUS GLUC (CENTRAM-CARE ORAL) Take by mouth twice daily. 0 ActiveComment on above:Take by mouth twice daily.predniSONE 20 mg oral tablet (20 sources)Start: 09-01-2024 End: 05-36-7096lyxm 3 tablets by mouth once daily, then [...] with food or milk orally;Start: 05-16-2024 End: 82-22-8657aaac 3 tablets by mouth once daily at [...] x3 days orally WITH FOOD OR MILK;Start: 42-89-6932ooiyqsMPPB 10 MG 4 tablets daily x 3 days, 2 tablets daily x 3 days, 1.5 tablet daily x 7 days, 1 tablet daily x 7 days, 0.5 tablets daily x 7 days Orally Once a day for 27 days Aug, ActiveStart: 91-48-9443uacbfoSFWF 10 MG 4 tabs x 7 days, 3 tabs x 7 days, 2 tabs x 7 days, 1 tab x 7 days then stop OrallyOnce a day for 28 days Nov, Not-TakingStart: 65-74-3404ikwsoiWEZW 20 MG take 3 tablets Orally x3 days, then 2 tabs x3 days then 1 tab a day x3 days then take 1/2 tablet x 4 days with food or milk for 13 days Oct, ActiveStart: 29-30-9452memvilEYBN 10 MG 4 tablets daily for 3 days, 2 tablets daily for 3 days, 1 tablet daily for 7 days Orally Once a day for 13 days Aug, ActiveStart: 64-13-5875vkxt 1 tablet by mouth every twenty-four hours predniSONE 10 MG 1 tablet Orally Once a day Feb, ActivepredniSONE 5 MG 1/2 tablet Orally weaning down as directed Wdodfp67 hr scopolamine 0.0139 mg/hr transdermal system (14 sources)AnticholinergicStart: 46-93-1687Oziuuzljjfg 1 MG/3DAYS 1 patch to skin behind the ear Transdermal change q72 hours Jun, Not-TakingTB Test (20 sources)Start: 27-12-2075RZ Test Jan, 0.1 mL24 hr venlafaxine 37.5 mg extended release oral capsule (3 sources)Serotonin and Norepinephrine Reuptake InhibitorStart: 10-07-2021 venlafaxine ER (EFFEXOR XR) 37.5 mg 24 hr capsule take one a day, if tolerated after two weeks increase to two 60 capsule 3 10/07/2021 ActiveComment on above: take one a day, if tolerated after two weeks increase to twoVitamin D [place] (Ancestry) (3 sources)Start: 03-30-2016 End: 66-62-2144pwpo 1 capsule by mouth once daily at mealtimeVitamin D [place] (Ancestry) Take 1 capsule by mouth daily with food. 0 03/30/2016 10/13/2021 Discontinued (Course of therapy completed)Start: 59-73-1286zdoj 1 capsule by mouth once daily at mealtimeVitamin D [place] (Ancestry) Take 1 capsule by mouth daily with food. 0 03/30/2016 ActiveComment on above: Take 1 capsule by mouth daily with food. Problems Active Problems Problem ClassificationProblemDateDocumented DateEpisodic/ChronicAbdominal pain (20 sources)Abdominal pain; Translations: [Unspecified abdominal pain]Onset: 03-15-2021 Resolved: 07-39-3889TvfurzkuUrxnyly disorders (20 sources)Generalized anxiety disorder; Translations: [Generalized anxiety disorder]Onset: 81-45-6621QrafybwPailwy (20 sources)Asthma; Translations: [Unspecified asthma, uncomplicated]Onset: 02-21-2021 Resolved: 84-35-3743UrhfvmjHvobzgr obstructive pulmonary disease and bronchiectasis (8 sources)Pulmonary emphysema; Translations: [Emphysema, unspecified]12-08-2024 ChronicCongestive heart failure; nonhypertensive (10 sources)Chronic diastolic (congestive) heart failure; Translations: [Congestive heart failure]Onset: 20-97-7881TnxojjtAniqnydr mellitus with complications (5 sources)Type 2 diabetes mellitus; Translations: [Type 2 diabetes mellitus with hyperglycemia]Onset: 02-54-6621KbskawcBwankkup mellitus without complication (20 sources)Type 2 diabetes mellitus without complication; Translations: [Type 2 diabetes mellitus without complications]Onset: 03-15-2021 Resolved: 86-65-9548WwixojoDbllbine mellitus without complication (20 sources)Hyperglycemia; Translations: [Hyperglycemia, unspecified]Episodic Digestive congenital anomalies (20 sources)Disorder of tongue; 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]ChronicDisorders of lipid metabolism (20 sources)Hyperlipidemia; Translations: [Hyperlipidemia, unspecified]Onset: 07-04-2021 Resolved: 27-52-8458OmlwsycP Codes: Natural/environment (2 sources)Bitten by cat, initial encounterEpisodicEsophageal disorders (20 sources)Gastroesophageal reflux disease; Translations: [Gastro-esophageal reflux disease without esophagitis]Onset: 02-21-2021 Resolved: 34-14-4815DhvuxwlZtyvzeloy hypertension (20 sources)Hypertensive disorder; Translations: [Essential (primary) hypertension]Onset: 141456-52-0266XrydgzvRewxg of unknown origin (1 source)Fever, unspecifiedEpisodicGenitourinary symptoms and ill-defined conditions (4 sources)Nocturia; Translations: [NOCTURIA]Onset: 15-88-9383RfueougiNiwnghmu; including migraine (20 sources)Headache; Translations: [Headache]EpisodicHeadache; including migraine (4 sources)Headache; including migraine; Translations: [HEADACHE UNSPECIFIED] Onset: 83-98-3823Wpgerik and fatigue (7 sources)Chronic fatigue syndrome; Translations: [Chronic fatigue, unspecified]Onset: 512128-02-3829RvmhhjkMqcyrgw and fatigue (20 sources)Other fatigue; Translations: [Fatigue]EpisodicMiscellaneous mental health disorders (7 sources)Binge eating disorder; Translations: [Binge eating disorder]Onset: 459658-05-3574QqazqqvWeex disorders (20 sources)Depressive disorder; Translations: [Major depressive disorder, single episode, unspecified]Onset: 10-20-2021 Resolved: 71-22-0375GfppkjlRynlgx and vomiting (20 sources)Nausea; Translations: [Nausea]EpisodicNoninfectious gastroenteritis (1 source)Noninfective gastroenteritis and colitis, unspecifiedEpisodic Nonspecific chest pain (2 sources)Other chest pain; Translations: [Other chest pain]Onset: 01-05-2025 EpisodicNutritional deficiencies (20 sources)Vitamin D deficiency; Translations: [Vitamin D deficiency, unspecified]Onset: 99-22-8079EqorupfYnncwutouul deficiencies (1 source)Dietary selenium deficiency; Translations: [DIETARY SELENIUM DEFICIENCY]Onset: 34-44-0694NgjcybbwImyzjcbslnncjh (3 sources)Osteoarthritis; Translations: [Unspecified osteoarthritis, unspecified site]Onset: 264309-78-1032PizfbsmTdwmi aftercare (20 sources)Long-term current use of systemic steroid; Translations: [senior care (current) use of systemic steroids]EpisodicOther aftercare (9 sources)Other retirement (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; Translations: [Long-term (current) use of other medications]Onset: 03-15-2021 Resolved: 97-92-6095SsfrdlicBzjza aftercare (1 source)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; Translations: [NURSING HOME USE ORAL HYPOGLYCEMIC DX]Onset: 01-61-6024RrfozbgdNxunv circulatory disease (20 sources)Elevated blood-pressure reading, without diagnosis of hypertension; Translations: [Elevated blood pressure reading without diagnosis of hypertension]Onset: 10-20-2021 Resolved: 12-05-3922KdpmzmnqIfwoo connective tissue disease (20 sources)Cramp; Translations: [Cramp and spasm]EpisodicOther connective tissue disease (1 source)Myalgia, unspecified siteEpisodicOther ear and sense organ disorders (7 sources)Sensorineural hearing loss, bilateral; Translations: [Sensorineural hearing loss, bilateral]Onset: 817086-77-6006MtwmgjpJjhqf ear and sense organ disorders (20 sources)Asymmetrical sensorineural hearing loss; Translations: [Sensorineural hearing loss, bilateral]Onset: 201771-11-7159GhextamVngcd ear and sense organ disorders (11 sources)Sensorineural hearing loss, bilateral; Translations: [Sensorineural hearing loss, asymmetrical]21-02-2995QmurilaBhwje ear and sense organ disorders (2 sources)Mixed conductive AND sensorineural hearing loss; Translations: [Mixed conductive and sensorineural hearing loss, unilateral, right ear with restricted hearing on the contralateral side]Onset: 782707-13-8853Bssgtfx Other ear and sense organ disorders (1 source)Otalgia, right earEpisodicOther ear and sense organ disorders (1 source)Unspecified acute noninfective otitis externa, right earEpisodicOther ear and sense organ disorders (20 sources)Tinnitus; Translations: [Tinnitus, unspecified ear]09-26-2023 EpisodicComment on above:right sided tinnitusOther ear and sense organ disorders (5 sources)Tinnitus, unspecified ear; Translations: [Tinnitus, unspecified] 07-00-2850GntrpzfkYryrj gastrointestinal disorders (20 sources)Diarrhea; Translations: [Diarrhea, unspecified]82-78-6422Uqgdkwkb Other gastrointestinal disorders (12 sources)Burping; Translations: [Eructation]62-55-4845UmuyxueqQuxii gastrointestinal disorders (5 sources)Eructation; Translations: [Flatulence, eructation, and gas pain] 92-27-7190IbkomfruBvhmu liver diseases (20 sources)Steatosis of liver; Translations: [Fatty (change of) liver, not elsewhere classified]ChronicOther liver diseases (20 sources)Inflammatory disease of liver; Translations: [Inflammatory liver disease, unspecified]Onset: 015005-69-8245PsaytvwEfhfg lower respiratory disease (20 sources)Cough; Translations: [Cough]EpisodicOther lower respiratory disease (6 sources)Wheezing; Translations: [Wheezing]Onset: 10-20-2021 Resolved: 47-35-7234FetqqsjbHjzsq lower respiratory disease (3 sources)Shortness of breath; Translations: [SHORTNESS OF BREATH]Onset: 68-78-6023SvtqaholZkatv lower respiratory disease (12 sources)Wheezing; Translations: [Wheezing]63-91-7499MiutvxjlOjvtq lower respiratory disease (12 sources)Cough; Translations: [Acute cough]12-11-8327AtaoxicnLlxco nervous system disorders (20 sources)Chronic pain; Translations: [Other chronic pain]32-15-6413Htnstug Other nervous system disorders (20 sources)Other chronic pain; Translations: [Other chronic pain]ChronicOther nervous system disorders (20 sources)Paresthesia of hand ; Translations: [Paresthesia of skin]Episodic Other nervous system disorders (20 sources)Disorder of taste; Translations: [Unspecified disturbances of smell and taste]EpisodicOther non-traumatic joint disorders (4 sources)Pain in unspecified joint; Translations: [Polyarthralgia M25.50] Onset: 03-15-2021 Resolved: 72-86-1076TtyjmvwkXcbda non-traumatic joint disorders (16 sources)Pain in unspecified hip; Translations: [Pain in joint, pelvic region and thigh]EpisodicOther non-traumatic joint disorders (20 sources)Pain in left shoulder; Translations: [Left shoulder pain]Episodic Other non-traumatic joint disorders (20 sources)Hip pain; Translations: [Pain in unspecified hip]02-22-3823Xgrjqapq Other nutritional; endocrine; and metabolic disorders (20 sources)Body mass index 40+ - severely obese; Translations: [Body mass index (BMI) 50.0-59.9, adult]Onset: 286015-84-5711TeggchtKcntd nutritional; endocrine; and metabolic disorders (7 sources)Metabolic syndrome X; Translations: [Metabolic syndrome]Onset: 711961-51-4960YbhszgrIjfyf nutritional; endocrine; and metabolic disorders (20 sources)Hypercalcemia; Translations: [Hypercalcemia]ChronicOther nutritional; endocrine; and metabolic disorders (20 sources)Obesity; Translations: [Obesity, unspecified]ChronicOther nutritional; endocrine; and metabolic disorders (2 sources)Abnormal weight lossOnset: 10-20-2021 Resolved: 06-82-6057XthfccmlXzlmg nutritional; endocrine; and metabolic disorders (2 sources)Abnormal weight gainEpisodicOther screening for suspected conditions (not mental disorders or infectious disease) (20 sources)CT of chest abnormal; Translations: [Abnormal findings on diagnostic imaging of other specified body structures]99-20-3340JovbyfyKjcddjg on above:CT [facility] screening for suspected conditions (not mental disorders or infectious disease) (20 sources)Liver function tests abnormal; Translations: [Other specified abnormal findings of blood chemistry]Onset: 99-28-1956LvnaevgwMxdfl upper respiratory disease (20 sources)Seasonal allergy; Translations: [Other seasonal allergic rhinitis] Onset: 336774-90-6786QpwouyzVfbgr upper respiratory disease (13 sources)Other seasonal allergic rhinitis; Translations: [Allergic rhinitis, cause unspecified]Onset: 02-21-2021 Resolved: 11-90-9262KplcvzyBkgnr upper respiratory disease (2 sources)Allergic rhinitis due to animal hair and dander; Translations: [Allergic rhinitis due to animal (cat) (dog) hair and dander]Onset: 10-04-2022 19-23-5760SijjpuhMjgcg upper respiratory disease (1 source)Nasal congestion; Translations: [NASAL CONGESTION]Onset: 09-14-2022 EpisodicOther upper respiratory disease (4 sources)Nasal sinus problem; Translations: [Other specified disorders of nose and nasal sinuses]21-66-7077CiksawbrZrqql upper respiratory infections (12 sources)Acute sinusitis, unspecified; Translations: [Acute sinusitis] EpisodicOtitis media and related conditions (20 sources)Dysfunction of eustachian tube; Translations: [Other specified disorders of Eustachian tube, unspecified ear]Onset: 12-78-7770IrbbqmdsCllphweg codes; unclassified (20 sources)Insomnia; Translations: [Insomnia, unspecified]EpisodicResidual codes; unclassified (2 sources)Pain, unspecified; Translations: [PAIN UNSPECIFIED]Onset: 08-23-2022 EpisodicResidual codes; unclassified (1 source)Acquired absence of other specified parts of digestive tract; Translations: [ACQ ABSENCE OTH PART DIGESTV TRACT]Onset: 58-94-0733Epbuzfzl Residual codes; unclassified (1 source)Acquired absence of both cervix and uterus; Translations: [ACQUIRED ABSENCE BOTH CERVIX AND UTERUS]Onset: 60-02-7430LkmhgbouVdynkirmnux; intervertebral disc disorders; other back problems (20 sources)Inflammation of sacroiliac joint; Translations: [Sacroiliitis, not elsewhere classified]30-66-2897XwpbfutKfbpycbhmps; intervertebral disc disorders; other back problems (20 sources)Neck pain; Translations: [Cervicalgia]Onset: 10-20-2021 Resolved: 69-95-9162JtviqvzfQbxfqxn disorders (20 sources)Acquired hypothyroidism; Translations: [Hypothyroidism, unspecified] Onset: 09-20-2015 Resolved: 47-58-2217UngueujNusrtzmjhtww (4 sources)COUGH, UNSPECIFIED; Translations: [COUGH, UNSPECIFIED]Onset: 54-38-7571Vpwpqljaawrl (1 source)PERSONAL HISTORY OF COVID-19; Translations: [PERSONAL HISTORY OF COVID-19]Onset: 77-30-0847Lsigaoqazgly (1 source)CONTACT W/AND (SUSP) EXPOS COVID-19; Translations: [CONTACT W/AND (SUSP) EXPOS COVID-19]Onset: 08-21-2022 Past or Other Problems Problem ClassificationProblemDateDocumented DateEpisodic/ChronicCardiac dysrhythmias (20 sources)Palpitations; Translations: [Palpitations]Onset: 22-91-8789Cbfswxbk Chronic obstructive pulmonary disease and bronchiectasis (1 source)Bronchitis, not specified as acute or chronic; Translations: [Bronchitis J40]Onset: 02-24-2021 Resolved: 08-93-2246BudjxucnHiiqq aftercare (20 sources)Long-term current use of drug therapy; Translations: [Other retirement (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]Onset: 042984-39-4234JisvrymdMfohx circulatory disease (20 sources)Elevated blood pressure; Translations: [Elevated blood-pressure reading, without diagnosis of hypertension]Onset: 363426-27-9398Gqulxuqp Other congenital anomalies (2 sources)Porokeratosis; Translations: [Other specified congenital malformations of skin]Onset: 10-04-2022 Resolved: 095332-81-8706TpnbezcMjojp connective tissue disease (20 sources)Fibromyalgia; Translations: [Fibromyalgia]Onset: 09-20-2015 96-80-4026EfirchmzRwfpo connective tissue disease (1 source)Pain in left handOnset: 05-25-2021 Resolved: 64-30-7775YofqunnqWugtt connective tissue disease (1 source)Pain in leg, unspecifiedOnset: 07-04-2021 Resolved: 24-63-0439LzqrftrzUigie connective tissue disease (1 source)Fibromyalgia; Translations: [Fibromyalgia]Onset: 32-70-9886Mjpjbtdf Other ear and sense organ disorders (20 sources)Tinnitus of vascular origin; Translations: [Pulsatile tinnitus, unspecified ear]Onset: 462807-54-5004RzcdlqhxIhsbk ear and sense organ disorders (2 sources)Cholesteatoma of attic; Translations: [Cholesteatoma of attic, right ear]Onset: 635330-36-7331SvkvdjreLakgz ear and sense organ disorders (2 sources)Tinnitus of right ear; Translations: [Tinnitus, right ear]Onset: 533711-30-8729JeecitsgRawda gastrointestinal disorders (12 sources)Diarrhea, unspecified; Translations: [Diarrhea]Onset: 07-30-2024 EpisodicOther nervous system disorders (2 sources)Abnormal taste in mouth; Translations: [Parageusia]Onset: 10-04-2022 98-97-8936GgaemhbgNnbwr non-traumatic joint disorders (20 sources)Multiple joint pain; Translations: [Pain in unspecified joint]Onset: 379304-08-2631CgmmdadnVkxyz upper respiratory disease (2 sources)Allergic rhinitis due to pollen; Translations: [Allergic rhinitis due to pollen]Onset: 10-04-2022 Resolved: 696882-53-1996RsrwengPgmivxhmweya (1 source)Lumbar pain M54.50Onset: 07-04-2021 Resolved: 45-29-1008Lyowiihxhogh (1 source)Cough R05.9Onset: 10-20-2021 Resolved: 65-66-1242Rwrxcshbucws (1 source)COUGH, UNSPECIFIED; Translations: [COUGH, UNSPECIFIED]Onset: 32-06-0502Hynqxbr tract infections (20 sources)Urinary tract infectious disease; Translations: [Urinary tract infection, site not specified]Onset: 938870-44-0700Yzlfbika Results Test NameValueInterpretationReference RangeFacilityBasophils Auto (Bld) [#/Vol] Ordered By: Jeff Jon on 79-79-1867[place] (Bld) [#/Vol]0.1 10 3/uL0.0-0.1 [facility] CenterBasophils/100 WBC Auto (Bld)Ordered By: Jeff Jon on 69-30-1731Gtyviyvgh/100 WBC (Bld)1.0 %0.2-2.0[facility] CenterCholesterol in LDL Calc [Mass/Vol]Ordered By: Jeff Jon on 56-97-2653Ubyctarkghz in LDL [Mass/Vol]53.0 mg/dLThe [facility] Of [facility] Medical CenterComment on above:<100 mg/dl WVZUVVQ777-154 mg/dl NEAR OR ABOVE FDCJRPJ894- 159 mg/dl BORDERLINE EDUG196-251 mg/dl HIGH>190 mg/dl VERY HIGHCholesterol in VLDL Calc [Mass/Vol]Ordered By: Jeff Jon on 26-23-6707Ztfeqirnltz in VLDL [Mass/Vol]10.8 mg/dLThe [facility] Of [facility] CenterEosinophils/100 WBC Auto (Bld)Ordered By: Jeff Jon on 90-76-0725Islclgwnhzz/100 WBC (Bld)4.8 %0.9-7.0 [facility] CenterErythrocyte distribution width Auto (RBC) [Ratio]Ordered By: Jeff Jon on 73-66-5502Ugqkimnuufi distribution width (RBC) [Ratio]11.9 %11.0-15.0[facility] CenterGlobulin Calc (S) [Mass/Vol]Ordered By: Jeff Jon on 62-21-5276Cqygcwoh (S) [Mass/Vol]3.8 g/dL [facility] CenterGlomerular filtration rate (GFR) estimation in non- AmericanOrdered By: Jeff Jon on 08-72-2891THC/1.73 sq M.predicted among non-blacks MDRD (S/P/Bld) [Vol rate/Area]60 mL/min/{1.73_m2} >=60 mL/min/1.73m 2FAultman Alliance Community HospitalGlucose mean value [Mass/volume] in Blood Estimated from glycated hemoglobinOrdered By: Jeff Jon on 27-44-7942Otwvwji glucose Estimated from glycated hemoglobin (Bld) [Mass/Vol]194 mg/dLThe University Of Toledo Medical CenterHematocrit Auto (Bld) [Volume fraction]Ordered By: Jeff Jon on 10-46-0053Rasuymsyld (Bld) [Volume fraction]44.8 %36.0-48.0[facility] CenterHemoglobin A1c percentageOrdered By: Jeff Jon on 72-27-0314JdX3f (Bld) [Mass fraction]8.4 % High4.5-6.2FAultman Alliance Community HospitalComment on above:ADA RECOMMENDED LIMIT 4.0 - 6.0ADA THERAPEUTIC TARGET < 7.0ACTION SUGGESTED> 7.0Hemoglobin [Mass/volume] in BloodOrdered By: Jeff Jon on 20-57-4389Spsiumawad (Bld) [Mass/Vol]15.1 g/dL12.0-16.0[facility] CenterLaboratory - Chemistry and Chemistry - challengeOrdered By: Jeff Jon on 22-24-6479Ngsuqua [Mass/Vol]4.1 g/dL3.4-5.0[facility] CenterALP [Catalytic activity/Vol]102 U/R50-897YsfqkzslnThe University Of [facility]edo Medical CenterALT [Catalytic activity/Vol]32 U/O84-30VwvacqbqxThe [facility] Of [facility] Medical CenterAST [Catalytic activity/Vol]22 U/S23-80MdknwewlcThe University Of [facility] Medical CenterBilirubin [Mass/Vol]0.7 mg/dL0.2-1.0[facility] CenterCalcium [Mass/Vol]10.0 mg/dL 8.5-10.1FAultman Alliance Community HospitalChloride [Moles/Vol]102 mmol/L98-107 [facility] CenterCholesterol [Mass/Vol]130 mg/dL<=200[facility] CenterCholesterol in HDL [Mass/Vol]67 mg/nXIhcq44-74VcnpzrppeThe University Of [facility]edo Medical CenterComment on above:> or =60 mg/dl - LOW CARDIOVASCULAR RISK<40 mg/dl - HIGH CARDIOVASCULAR RISKCO2 [Moles/Vol]30.0 mmol/L21.0-32.0 [facility] CenterCreatinine [Mass/Vol]0.96 mg/dL0.55-1.02 [facility] CenterFree T4 [Mass/Vol]2.15 ng/dLHigh0.76-1.46 [facility] CenterGFR/1.73 sq M.predicted MDRD (S/P/Bld) [Vol rate/Area]mL/min/{1.73_m2}>=60 mL/min/1.73m 2FAultman Alliance Community Hospital Glucose [Mass/Vol]145 mg/fVZueu85-791UcsjxbeztThe [facility] CenterPotassium [Moles/Vol]4.3 mmol/L3.5-5.1FAultman Alliance Community HospitalProtein [Mass/Vol] 7.9 g/dL6.4-8.2FGalion Hospitalodium [Moles/Vol]142 mmol/L 136-145The [facility] CenterTriglyceride [Mass/Vol]54 mg/dL<=150 [facility] CenterTSH Qn0.282 m[IU]/LLow0.358-3.740[facility] CenterUrea nitrogen [Mass/Vol]19.0 mg/dLHigh7.0-18.0[facility] CenterUrea nitrogen/Creatinine [Mass ratio]19.8 mg/mgThe [facility] Of [facility]edo Medical CenterLaboratory - Hematology and Cell countsOrdered By: Jeff Jon on 81-28-1644Vpsepysp granulocytes/100 WBC (Bld)0.4 %0.0-0.5FAultman Alliance Community HospitalLeukocytes [#/volume] corrected for nucleated erythrocytes in Blood by Automated counOrdered By: Jeff Jon on 89-71-4987JSO corrected for nucl RBC Auto (Bld) [#/Vol]8.0 10 3/uL4.0-11.0[facility] CenterLymphocytes Auto (Bld) [#/Vol]Ordered By: Jeff Jon on 51-47-8091Tlofbktdcps (Bld) [#/Vol]2.3 10 3/uL1.2-3.8[facility] CenterLymphocytes/100 WBC Auto (Bld)Ordered By: Jeff Jon on 02-24-2025 Lymphocytes/100 WBC (Bld)28.9 %20.5-60.0[facility] HospitalH Auto (RBC) [Entitic mass]Ordered By: Jeff Jon on 18-19-4926GTZ (RBC) [Entitic mass]31.0 pg26.7-34.0[facility] CenterMCHC Auto (RBC) [Mass/Vol]Ordered By: Jeff Jon on 42-28-2534CVXF (RBC) [Mass/Vol]33.7 g/dL 29.9-35.2FAultman Alliance Community HospitalMCV Auto (RBC) [Entitic vol]Ordered By: Jeff oJn on 36-30-6428HMP (RBC) [Entitic vol]92.0 fL81.0-99.0[facility] CenterMonocytes Auto (Bld) [#/Vol]Ordered By: Jeff Jon on 84-50-6565Fnylnibmy (Bld) [#/Vol]0.5 10 3/uL0.3-0.8[facility] CenterMonocytes/100 WBC Auto (Bld)Ordered By: Jeff Jon on 02-24-2025 Monocytes/100 WBC (Bld)6.6 %1.7-12.0[facility] CenterNeutrophils Auto (Bld) [#/Vol]Ordered By: Jeff Jon on 38-25-8815Ipzjcduueyo (Bld) [#/Vol]4.7 10 3/uL1.4-6.5FAultman Alliance Community HospitalNeutrophils/100 WBC Auto (Bld)Ordered By: Jeff Jon on 15-98-8271Zhiyugvpdvi/100 WBC (Bld)58.3 % 43.0-75.0[facility] CenterNo Panel InformationOrdered By: Jeff Jon on 589036-Gjdbktm Vitamin D Total43.0 ng/mLThe University Of Toledo Medical CenterComment on above:<20 ng/mL Vit D ummbafwdp38-<30 ng/mL Vit D gvkcochrkslj79-890 ng/mL Vit D sufficient>100 ng/mL Potential Toxicity Eosinophils # (Auto)0.4 10 3/uL0.0-0.7FAultman Alliance Community HospitalFree Triiodothyronine3.08 pg/mL2.18-3.98[facility] CenterImmature Granulocyte # (Auto)0.03 10 3/uL0.00-0.03[facility] Platelet mean volume Auto (Bld) [Entitic vol]Ordered By: Jeff Jon on 17-05-0148Qjlmgcov mean volume (Bld) [Entitic vol]9.9 fL9.5-13.5FAultman Alliance Community HospitalPlatelets Auto (Bld) [#/Vol]Ordered By: Jeff Jon on 98-94-5793Oyifihuwq (Bld) [#/Vol]360 10 3/eR332-411NpqscifgcThe University Of Toledo Medical CenterRBC Auto (Bld) [#/Vol]Ordered By: Jeff Jon on 16-99-4845MIX (Bld) [#/Vol]4.87 10 6/uL4.20-5.40[facility] Northerum or plasma albumin/globulin mass ratioOrdered By: Jeff Jon on 02-24-2025 Albumin/Globulin [Mass ratio]1.1 {ratio}[facility] Northerum or plasma anion gap determinationOrdered By: Jeff Jon on 19-73-5034Gkmre gap [Moles/Vol]14.3 mmol/LFGalion Hospitalerum or plasma insulin measurement (units/volume)Ordered By: Jeff Jon on 83-07-2281Onlkijf Qn12.7 u[iU]/mL2.6-24.9The [facility] CenterComment on above:Performed at: [facility] Lab[address] [id number] Director: Giuseppe Newell PhD, Phone: [phone] or plasma total cholesterol/high density lipoprotein (HDL) cholesterol mass ratOrdered By: Jeff Jon on 02-24-2025 Cholesterol.total/Cholesterol in HDL [Mass ratio]1.9 {ratio}[facility] CenterComment on above:3.3 - 4.4 LOW RISK4.4 - 7.1 AVERAGE RISK7.1 - 11.0 MODERATE RISK>11.0 HIGH MNWP13fi 75-84-164138Zo was seen [facility] 35-76-8653Lfmbuy-[id number] Canelo Pathak 1965 F Date Provider Department Center 02/09/2025 NEO MORENO NUBIA [facility] Family History Problem Relation Age of Onset Pulmonary embolism Mother Kidney disease Father Heart attack Father Family Status - Relation Status Age at Mother Father Brother Alive Level of Service:30835 [place] OFFICE/OUTPATIENT ESTABLISHED MOD MDM 30 [facility] HospitalGlomerular filtration rate (GFR) estimation in non- AmericanOrdered By: Neo Espino on 83-19-7241XVB/1.73 sq M.predicted among non-blacks MDRD (S/P/Bld) [Vol rate/Area]mL/min/{1.73_m2}>=60 mL/min/1.[address]m [address] [place], [place] [address]Laboratory - Chemistry and Chemistry - challengeOrdered By: Neo Espino on 83-45-3184Euglrss [Mass/Vol]9.6 mg/dL8.5-10.1FAultman Alliance Community HospitalChloride [Moles/Vol] 102 mmol/E96-204JlcpamndnThe University Of Toledo Medical CenterCO2 [Moles/Vol]27.3 mmol/L 21.0-32.0[facility] CenterCreatinine [Mass/Vol]0.94 mg/dL 0.55-1.02[facility] CenterGFR/1.73 sq M.predicted MDRD (S/P/Bld) [Vol rate/Area]mL/min/{1.73_m2}>=60 mL/min/1.[address]m [address] [place], [place] [address]Glucose [Mass/Vol]175 mg/kLFpmr64-459KrafccksnThe [facility] Potassium [Moles/Vol]4.5 mmol/L3.5-5.1FGalion Hospitalodium [Moles/Vol]139 mmol/Y075-292EcbhlhtkiThe University Of Toledo Medical CenterUrea nitrogen [Mass/Vol]19.0 mg/dLHigh7.0-18.0[facility] CenterUrea nitrogen/Creatinine [Mass ratio]20.2 mg/mgPremier Health [facility] Hospital Northerum or plasma anion gap determinationOrdered By: Neo Fitzpatricklloyd on 28-50-3854Snewz gap [Moles/Vol]14.2 mmol/LFAultman Alliance Community Hospital36on Patient called back and I advised her she could stop Imdur and metformin (per PCP). She was very happy and verbalized understanding.[facility]36LM for patient to return my call.[facility]36on [id number] called s/p cath on 01/08. You started [...] gets very lightheaded and nauseous. Any recommendations? Thanks!UK HealthcareTelephoneon [id number] [id number] LawsonCanelo Sue 1965 F Date Provider Department Center 01/12/2025 JURGEN HAWKINS NUBIA [facility] Family History Problem Relation Age of Onset Pulmonary embolism Mother Kidney disease Father Heart attack Father Family Status - Relation Status Age at Mother Father Brother AliveNormalUniversity of [facility] 70-51-6134XMTI Attestation signed by Won Blanton MD at 01/08/2025 8:20 AM Won Blanton MD, MPH, FACC, [facility], [facility] Interventional Cardiology Pager Email: [email or web address] Patient: Canelo Pathak Pre-sedation Evaluation: Moderate sedation [...] Hypertension 10/11/2023 Hypothyroidism 10/11/2023 Osteoarthritis 10/11/2023 Other retirement (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 10/11/2023 Palpitation 10/11/2023 Polyarthralgia 10/11/2023 Seasonal allergies 10/11/2023 UTI (urinary tract infection) 10/11/2023 Vitamin D deficiency 10/11/2023 Diabetes ([facility] 09/24/2023 Asymmetric SNHL (sensorineural hearing loss) 09/24/2023 Right-sided tinnitus 09/24/2023 Cholesteatoma of attic of ear, 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 Pulsatile tinnitus of right ear 08/21/2023 Abnormal taste in mouth 10/04/2022 Allergic rhinitis due to animal hair and dander 10/04/2022 Gastroesophageal reflux disease with esophagitis 10/04/2022 Type 2 diabetes mellitus with hyperglycemia, without long-term current use of insulin ([facility]) 10/11/2021 Binge eating disorder 09/20/2015 BMI 50.0-59.9, adult ([facility] 09/20/2015 CFS (chronic fatigue syndrome) 09/20/2015 Fibromyalgia 09/20/2015 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 Raiza Rocha PGY-4 Manager Gallery [facility] [1] Past Medical History: Diagnosis Date Abnormal ECG Asthma Diabetes mellitus ([facility]) GERD (gastroesophageal reflux disease) Hyperlipidemia Hypertension Hypothyroidism [...] two times daily. glimepiri (more content not included)...[facility] HealthcareHPon [id number] Attestation signed by Won Blanton MD at [...] me. Additional Comments: Won Blanton MD, MPH, [facility], [facility], [facility] Interventional Cardiology Pager Email: [email or web address] H&P reviewed. The patient was examined and there are no changes to the H&P. Will proceed with coronary angiography and right heart catheterization for further evaluation of abnormal stress test and shortness of breath. Consent for blood products obtained. Risks, benefits, and alternatives to procedure discussed with patient in detail who expressed understanding and agreed to proceed.[facility] HealthcareNURSNOTEon [id number] educated pt on d/c instructions. This included: [...] wheeled off of unit with all of belongings.[facility] HealthcareOrders Onlyon [id number] [id number] Canelo Pathak 1965 F Date Provider Department Center 01/08/2025 DIA [facility] Family History Problem Relation Age of Onset Pulmonary embolism Mother Kidney disease Father Heart attack Father Family Status - Relation Status Age at Mother Father Brother AliveNormalUniversity ACMC Healthcare SystemBasophils Auto (Bld) [#/Vol]Ordered By: Neo Espino on 79-12-0197Uracbodgo (Bld) [#/Vol]0.1 10 3/uL0.0-0.1FAultman Alliance Community HospitalBasophils/100 WBC Auto (Bld)Ordered By: Neo Espino on 21-72-0814Lqsgbfikg/100 WBC (Bld)1.0 %0.2-2.0[facility] CenterEosinophils/100 WBC Auto (Bld)Ordered By: Neo Espino on 92-35-7141Nfrvkazebsm/100 WBC (Bld)6.1 %0.9-7.0[facility] CenterErythrocyte distribution width Auto (RBC) [Ratio]Ordered By: Neo Espino on 03-23-7549Yapptrwgbxe distribution width (RBC) [Ratio]12.2 % 11.0-15.0[facility] CenterGlomerular filtration rate (GFR) estimation in non- AmericanOrdered By: Neo Espino on 01-06-2025 GFR/1.73 sq M.predicted among non-blacks MDRD (S/P/Bld) [Vol rate/Area] mL/min/{1.73_m2}>=60 mL/min/1.73m 2FAultman Alliance Community HospitalHematocrit Auto (Bld) [Volume fraction]Ordered By: Neo Espino on 00-46-0305Wsghsndfqh (Bld) [Volume fraction]40.9 %36.0-48.0[facility] Hemoglobin [Mass/volume] in BloodOrdered By: Neo Espino on 01-06-2025 Hemoglobin (Bld) [Mass/Vol]13.7 g/dL12.0-16.0[facility] Laboratory - Chemistry and Chemistry - challengeOrdered By: Neo Espino on 59-94-7463Cqmcwvb [Mass/Vol]9.2 mg/dL8.5-10.1FAultman Alliance Community Hospital Chloride [Moles/Vol]104 mmol/U45-346WtwzekpojThe University Of [facility] Medical CenterCO2 [Moles/Vol]30.0 mmol/L21.0-32.0[facility] CenterCreatinine [Mass/Vol]0.67 mg/dL0.55-1.02[facility] CenterGFR/1.73 sq M.predicted MDRD (S/P/Bld) [Vol rate/Area]mL/min/{1.73_m2}>=60 mL/min/1.73m 2 [facility] CenterGlucose [Mass/Vol]134 mg/qDNowa07-411GspjfhtblThe [facility] Of [facility] Medical CenterPotassium [Moles/Vol]4.4 mmol/L3.5-5.1FGalion Hospitalodium [Moles/Vol]139 mmol/Z950-606HpyvvchbrThe University Of [facility] Medical CenterUrea nitrogen [Mass/Vol]19.0 mg/dLHigh7.0-18.0[facility] CenterUrea nitrogen/Creatinine [Mass ratio]28.4 mg/mgThe [facility] Of [facility] Medical CenterLaboratory - Hematology and Cell countsOrdered By: Neo Espino on 80-86-5790Ewnwjwvt granulocytes/100 WBC (Bld)0.3 %0.0-0.5FAultman Alliance Community HospitalLeukocytes [#/volume] corrected for nucleated erythrocytes in Blood by Automated counOrdered By: Neo Espino on 04-53-5408MCU corrected for nucl RBC Auto (Bld) [#/Vol]7.9 10 3/uL4.0-11.0[facility] CenterLymphocytes Auto (Bld) [#/Vol]Ordered By: Neo Espino on 01-06-2025 Lymphocytes (Bld) [#/Vol]2.3 10 3/uL1.2-3.8[facility] Lymphocytes/100 WBC Auto (Bld)Ordered By: Neo Espino on 01-06-2025 Lymphocytes/100 WBC (Bld)28.9 %20.5-60.0[facility] Auto (RBC) [Entitic mass]Ordered By: Neo Espino on 89-33-1960UQC (RBC) [Entitic mass]30.9 pg26.7-34.0[facility] CenterMCHC Auto (RBC) [Mass/Vol]Ordered By: Neo Espino on 65-78-8424JAVY (RBC) [Mass/Vol]33.5 g/dL29.9-35.2FAultman Alliance Community HospitalMCV Auto (RBC) [Entitic vol] Ordered By: Neo Espino on 79-55-8127OEH (RBC) [Entitic vol]92.3 fL 81.0-99.0[facility] CenterMonocytes Auto (Bld) [#/Vol]Ordered By: Neo Espino on 31-75-8816Dkdmscrcs (Bld) [#/Vol]0.5 10 3/uL0.3-0.8 [facility] CenterMonocytes/100 WBC Auto (Bld)Ordered By: Neo Espino on 04-56-9377Kjzmubrwc/100 WBC (Bld)6.4 %1.7-12.0[facility] CenterNeutrophils Auto (Bld) [#/Vol]Ordered By: Neo Espino on 89-33-1882Trjlgvhndan (Bld) [#/Vol]4.5 10 3/uL1.4-6.5FAultman Alliance Community HospitalNeutrophils/100 WBC Auto (Bld)Ordered By: Neo Espino on 01-06-2025 Neutrophils/100 WBC (Bld)57.3 %43.0-75.0[facility] CenterNo Panel InformationOrdered By: Neo Espino on 40-00-9028Ubrdevtycft # (Auto) 0.5 10 3/uL0.0-0.7FAultman Alliance Community HospitalImmature Granulocyte # (Auto) 0.02 10 3/uL0.00-0.03[facility] CenterPlatelet mean volume Auto (Bld) [Entitic vol]Ordered By: Neo Espino on 16-93-0718Tavlckyr mean volume (Bld) [Entitic vol]10.5 fL9.5-13.5FAultman Alliance [facility] Hospital Platelets Auto (Bld) [#/Vol]Ordered By: Neo Espino on 90-20-4689Bbpdheczq (Bld) [#/Vol]358 10 3/nN218-658HzzcqwpfnThe University Of [facility] Medical CenterRBC Auto (Bld) [#/Vol]Ordered By: Neo Espino on 65-35-6028CNO (Bld) [#/Vol]4.43 10 6/uL 4.20-5.40[facility] Northerum or plasma anion gap determinationOrdered By: Neo Espino on 75-04-7466Tubpz gap [Moles/Vol]9.4 mmol/LFAultman Alliance Community HospitalHPon 59-79-8719TMVY Cardiology [facility] Subjective Canelo Pathak is a 59 [...] Asymmetric SNHL (sensorineural hearing loss) Osteoarthritis Other retirement (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 Palpitation Polyarthralgia Pulsatile tinnitus of right ear Right-sided tinnitus Seasonal allergies Type 2 diabetes mellitus with hyperglycemia, without long-term current use of insulin ([facility]) UTI (urinary tract infection) Vitamin D deficiency [...] She is not ill-appearing. (more content not included)...UK HealthcareOffice Visiton 99-59-9116Vhzalc-up [id number] Canelo Pathak 1965 F Date Provider Department Center 01/05/2025 NEO MORENO CARD [facility] Family History Problem Relation Age of Onset Pulmonary embolism Mother Kidney disease Father Heart attack Father Family Status - Relation Status Age at Mother Father Brother Alive Level of Service:19449 [place] OFFICE/OUTPATIENT ESTABLISHED HIGH [facility] HospitalOrders Onlyon 28-61-2910Enwbss [id number] Canelo Pathak 1965 F Date Provider Department Center 01/05/2025 [id number], HISTORICAL CARD [facility] Family History Problem Relation Age of Onset Pulmonary embolism Mother Kidney disease Father Heart attack Father Family Status - Relation Status Age at Mother Father Brother AliveNoalUniAvita Health SystemOrders Onlyon 12-29-2024 Orders [id number] Canelo Pathak 1965 F Date Provider Department Center 12/29/2024 [id number], HISTORICAL CARD [facility] Family History Problem Relation Age of Onset Pulmonary embolism Mother Kidney disease Father Heart attack Father Family Status - Relation Status Age at Mother Father Brother AliveNoMain Campus Medical CenterBasophils Auto (Bld) [#/Vol]Ordered By: Jeff Jon on 57-04-7187Dgpxrhuwv (Bld) [#/Vol]0.1 10 3/uL 0.0-0.1FAultman Alliance Community HospitalBasophils/100 WBC Auto (Bld)Ordered By: Jeff Jon on 69-61-4560Ftdxyydzy/100 WBC (Bld)0.7 %0.2-2.0[facility] CenterEosinophils/100 WBC Auto (Bld)Ordered By: Jeff Jon on 90-97-7806Mcyihyxbals/100 WBC (Bld)4.6 %0.9-7.0[facility] Erythrocyte distribution width Auto (RBC) [Ratio]Ordered By: Jeff Jon on 12-43-8913Owjndnxccwd distribution width (RBC) [Ratio]12.0 %11.0-15.0[facility] CenterGlucose mean value [Mass/volume] in Blood Estimated from glycated hemoglobinOrdered By: Jeff Jon on 75-43-0656Bgvmxkh glucose Estimated from glycated hemoglobin (Bld) [Mass/Vol]186 mg/dLThe University Of [facility]edo Medical CenterHematocrit Auto (Bld) [Volume fraction]Ordered By: Jeff Jon on 31-62-5411Epqlnnwdvw (Bld) [Volume fraction]40.2 %36.0-48.0[facility] CenterHemoglobin A1c percentageOrdered By: Jeff Jon on 11-26-2024 HbA1c (Bld) [Mass fraction]8.1 %High4.5-6.2FAultman Alliance Community Hospital Comment on above:ADA RECOMMENDED LIMIT 4.0 - 6.0ADA THERAPEUTIC TARGET < 7.0ACTION SUGGESTED> 7.0Hemoglobin [Mass/volume] in BloodOrdered By: Jeff Jon on 11-31-8366Gunpgjeoja (Bld) [Mass/Vol]13.4 g/dL12.0-16.0[facility] CenterLaboratory - Chemistry and Chemistry - challengeOrdered By: Jeff Jon on 00-48-5668Tnkobrpnx Ql (U)NegativeNEGATIVEThe University Of [facility] Medical CenterGlucose (U) [Mass/Vol]NegativeNEGATIVEThe [facility] Of [facility] Medical CenterKetones Ql (U)NegativeNEGSt. John of God HospitalpH (U)6.0 [pH]5.0-9.0[facility] Northpecific gravity (U) [Rel density] >=1.481Grjgvrqd0.005-1.025[facility] CenterUrobilinogen Qn (U) 0.2 {David'U}/dL0.2-1.0[facility] CenterLaboratory - Hematology and Cell countsOrdered By: Jeff Jon on 16-95-8146Zqsivylw granulocytes/100 WBC (Bld)0.6 %High0.0-0.5FAultman Alliance Community Hospital Laboratory - Specimen informationOrdered By: Jeff Jon on 11-26-2024 Appearance (U)CLEARCLEARFAultman Alliance Community HospitalColor (U)LT. YELLOW YELLOWThe University Of [facility]edo Medical CenterLaboratory - UrinalysisOrdered By: Jeff Jon on 77-88-5815Mzgxelliz esterase Test strip Ql (U)NegativeNEGATIVE [facility] CenterNitrite Ql (U)NegativeNEGATIVEThe [facility] Of [facility] Medical CenterProtein Ql (U)NegativeNEG/TRACEThe [facility] Medical CenterLeukocytes [#/volume] corrected for nucleated erythrocytes in Blood by Automated counOrdered By: Jeff Jon on 27-62-1711ENE corrected for nucl RBC Auto (Bld) [#/Vol]7.2 10 3/uL4.0-11.0[facility] Lymphocytes Auto (Bld) [#/Vol]Ordered By: Jeff Jon on 40-22-1370Xriuaakqryw (Bld) [#/Vol]1.9 10 3/uL1.2-3.8[facility] CenterLymphocytes/100 WBC Auto (Bld)Ordered By: Jeff Jon on 19-84-6504Guhhiuxklvo/100 WBC (Bld) 25.8 %20.5-60.0[facility] HospitalH Auto (RBC) [Entitic mass] Ordered By: Jeff Jon on 77-41-8877XTW (RBC) [Entitic mass]31.0 pg26.7-34.0 [facility] CenterMCHC Auto (RBC) [Mass/Vol]Ordered By: Jeff Jon on 20-05-1749EDZU (RBC) [Mass/Vol]33.3 g/dL29.9-35.2FAultman Alliance Community HospitalMCV Auto (RBC) [Entitic vol]Ordered By: Jeff Jon on 11-26-2024 MCV (RBC) [Entitic vol]93.1 fL81.0-99.0[facility] Monocytes Auto (Bld) [#/Vol]Ordered By: Jeff Jon on 04-53-4949Cptzsuckl (Bld) [#/Vol]0.6 10 3/uL0.3-0.8[facility] CenterMonocytes/100 WBC Auto (Bld)Ordered By: Jeff Jon on 55-44-6866Qbwldlbje/100 WBC (Bld)7.7 % 1.7-12.0[facility] CenterNeutrophils Auto (Bld) [#/Vol]Ordered By: Jeff Jon on 70-87-8475Wzoicfvfezb (Bld) [#/Vol]4.4 10 3/uL1.4-6.5 [facility] CenterNeutrophils/100 WBC Auto (Bld)Ordered By: Jeff Jon on 63-97-1969Rhklshovtrw/100 WBC (Bld)60.6 %43.0-75.0[facility] CenterNo Panel InformationOrdered By: Jeff Jon on 11-26-2024 Eosinophils # (Auto)0.3 10 3/uL0.0-0.7FAultman Alliance Community HospitalImmature Granulocyte # (Auto)0.04 10 3/uLHigh0.00-0.03[facility] Urine Occult BloodNegativeNEGATIVEThe [facility] Medical CenterPlatelet mean volume Auto (Bld) [Entitic vol]Ordered By: Jeff Jon on 84-28-9188Doxhiktm mean volume (Bld) [Entitic vol]9.6 fL9.5-13.5FAultman Alliance Community Hospital Platelets Auto (Bld) [#/Vol]Ordered By: Jeff Jon on 86-99-1799Amyiwrahh (Bld) [#/Vol]306 10 3/zD451-569MsidrlortThe University Of [facility]edo Medical CenterRBC Auto (Bld) [#/Vol]Ordered By: Jeff Jon on 53-94-3771TPM (Bld) [#/Vol]4.32 10 6/uL 4.20-5.40[facility] CenterUrine Cultureon 70-43-9035Lrobzllk identified Cx Nom (U)75,000 colonies/ml mixed bacterial skin contaminants 2 Days PERFORMED BY: [facility] [address] [place] [address] PATHOLOGIST ROLL UP MACHINE OPERATOR ASAD DANIELLE M.D.NormalThe [facility] Physician GroupComment on above: Performed By: #### CUU #### [facility] [address] [place] [address] USACholesterol in LDL Calc [Mass/Vol]Ordered By: Jeff Jon on 66-80-9542Vkgkzborrfn in LDL [Mass/Vol]107.0 mg/dLThe University Of Toledo Medical CenterComment on above:<100 mg/dl RPVFLNM435-164 mg/dl NEAR OR ABOVE SLQAHBV788-274 mg/dl BORDERLINE YDFA628-376 mg/dl HIGH>190 mg/dl VERY HIGH Cholesterol in VLDL Calc [Mass/Vol]Ordered By: Jeff oJn on 11-20-2024 Cholesterol in VLDL [Mass/Vol]18.2 mg/dLThe [facility] Of [facility] Estimated glomerular filtration rate (GFR) non- AmericanOrdered By: Jeff Jon on 69-15-1717QBI/1.73 sq M.predicted among non-blacks MDRD (S/P/Bld) [Vol rate/Area]mL/min/{1.73_m2}>=60 mL/min/1.73m 2FAultman Alliance Community HospitalGlobulin Calc (S) [Mass/Vol]Ordered By: Jeff Jon on 92-40-7310Bnsjsxzz (S) [Mass/Vol]3.3 g/dLThe University Of Toledo Medical CenterLaboratory - Chemistry and Chemistry - challengeOrdered By: Jeff Jon on 12-73-6615Qtjlczd [Mass/Vol]3.4 g/dL3.4-5.0[facility] CenterALP [Catalytic activity/Vol]82 U/N62-297QjiwlsbrmThe University Of [facility] Medical CenterALT [Catalytic activity/Vol]33 U/V71-97JeethbyviThe [facility] CenterAST [Catalytic activity/Vol]20 U/Z06-74HdztswzlqThe [facility] Of [facility] Medical CenterBilirubin [Mass/Vol]0.4 mg/dL0.2-1.0[facility] CenterCalcium [Mass/Vol]9.3 mg/dL 8.5-10.1FAultman Alliance Community HospitalChloride [Moles/Vol]104 mmol/L98-107 [facility] CenterCholesterol [Mass/Vol]207 mg/dLHigh<=200 [facility] CenterCholesterol in HDL [Mass/Vol]82 mg/gWNcvy75-24 [facility] CenterComment on above:> or =60 mg/dl - LOW CARDIOVASCULAR RISK<40 mg/dl - HIGH CARDIOVASCULAR RISKCO2 [Moles/Vol]27.2 mmol/L21.0-32.0[facility] CenterCreatinine [Mass/Vol]0.68 mg/dL 0.55-1.02[facility] CenterFree T4 [Mass/Vol]1.68 ng/dLHigh 0.76-1.46[facility] CenterGFR/1.73 sq M.predicted MDRD (S/P/Bld) [Vol rate/Area]mL/min/{1.73_m2}>=60 mL/min/1.73m 2FAultman Alliance Community HospitalGlucose [Mass/Vol]163 mg/nZFtqe09-915DyeestbzuThe [facility] Potassium [Moles/Vol]4.5 mmol/L3.5-5.1FAultman Alliance Community HospitalProtein [Mass/Vol]6.7 g/dL6.4-8.2FGalion Hospitalodium [Moles/Vol]141 mmol/X877-917QeqqphzivThe [facility] Medical CenterTriglyceride [Mass/Vol]91 mg/dL <=150The [facility] CenterTSH Qn0.712 m[IU]/L0.358-3.740[facility] CenterUrea nitrogen [Mass/Vol]15.0 mg/dL7.0-18.0[facility] CenterUrea nitrogen/Creatinine [Mass ratio]22.1 mg/mgThe [facility] Of [facility] CenterLaboratory - Chemistry and Chemistry - challengeOrdered By: Neo Espino on 66-12-1073Jsshuvwfz.direct [Mass/Vol]0.1 mg/dL0.0-0.2 [facility] CenterCK [Catalytic activity/Vol]29 U/L26-192 [facility] CenterLaboratory - Hematology and Cell countsOrdered By: Outside Provider on 88-08-6975YEH (Bld) [Velocity]15 mm/h<=30[facility] CenterNo Panel InformationOrdered By: Jeff Jon on 493381-Epilivy Vitamin D Total34.8 ng/mLThe [facility] Comment on above:<20 ng/mL Vit D oxegfkmct72-<30 ng/mL Vit D wtggggkhonvm07-623 ng/mL Vit D sufficient>100 ng/mL Potential ToxicityFree Triiodothyronine3.27 pg/mL2.18-3.98[facility] CenterNo Panel InformationOrdered By: Outside Provider on 86-39-1598G-Reactive Protein, Quantitative<0.50 mg/dL<=0.50 [facility] Northcl-70 (Scleroderma) Antibody<0.2 AI0.0-0.9 [facility] CenterComment on above:Performed at: [facility] SomersetEdhzkm[address] [place], [place] [id number] Director: Giuseppe Newell PhD, Phone: [phone] nuclear antibody titerOrdered By: Outside Provider on 63-15-8497Gpiwaef Ab (S) [Titer]Negative.[facility] Comment on above:Negative <1:80 Borderline 1:80 Positive >1:80ICAP nomenclature: AC-0For more information about Hep-2 cell patterns useANApatterns.org, the official website for theInternational Consensus on Antinuclear Antibody (KATHY)Patterns (ICAP).Performed at: [facility] Southern [facility] MexicoXjernk[address] [place], [id number] Director: Giuseppe Newell PhD, Phone: [phone] or plasma albumin/globulin mass ratioOrdered By: Jeff Jon on 11-20-2024 Albumin/Globulin [Mass ratio]1.0 {ratio}[facility] Northerum or plasma anion gap determinationOrdered By: Jeff Jon on 43-81-1751Sagbc gap [Moles/Vol]14.3 mmol/LFGalion Hospitalerum or plasma rheumatoid factor measurement (units/volume)Ordered By: Outside Provider on 38-70-0234Updzrgheaq factor Qn[IU]/mL<14.0[facility] Comment on above:Performed at: [facility] SomersetNnjlrr[address] [place], [place] [id number] Director: Giuseppe Newell PhD, Phone: [phone] or plasma total cholesterol/high density lipoprotein (HDL) cholesterol mass ratOrdered By: Jeff Jon on 73-35-7578Wdwrqrioorx.total/Cholesterol in HDL [Mass ratio]2.5 {ratio}[facility] CenterComment on above:3.3 - 4.4 LOW RISK4.4 - 7.1 AVERAGE RISK7.1 - 11.0 MODERATE RISK>11.0 HIGH RISKLaboratory - Chemistry and Chemistry - challengeon 79-35-6645Hkrs T4 [Mass/Vol]2.01 ng/dLHigh0.76-1.46 [facility] CenterTSH Qn0.260 m[IU]/LLow0.358-3.740[facility] CenterNo Panel Informationon 52-94-3980Fmwj Triiodothyronine 2.19 pg/mL2.18-3.98[facility] CenterOffice Visiton 08-25-2024 Follow-up [id number] Canelo Pathak 1965 F Date Provider Department Center 08/25/2024 NEO MORENO Family History Problem Relation Age of Onset Pulmonary embolism Mother Kidney disease Father Heart attack Father Family Status - Relation Status Age at Mother Father Brother Alive Level of Service:32585 [facility] OFF[facility]PATIENT NEW MODERATE MDM 45 MINUTESNormal Premier HealthBasophils Auto (Bld) [#/Vol]on 08-06-2024 Basophils (Bld) [#/Vol]Automated basophil count0.0-0.1FAultman Alliance Community HospitalBasophils/100 WBC Auto (Bld)on 71-23-4519Lqrksxnco/100 WBC (Bld)Automated basophil %0.2-2.0[facility] CenterCholesterol in LDL Calc [Mass/Vol]on 71-47-8867Egumdyjfdlx in LDL [Mass/Vol]Cholesterol in LDL [Mass/volume] in Serum or Plasma by calculationThe [facility] Of [facility] Comment on above:<100 mg/dl RMAJZCE929-201 mg/dl NEAR OR ABOVE YOFWWNY712-661 mg/dl BORDERLINE LADG812-162 mg/dl HIGH>190 mg/dl VERY HIGHCholesterol in VLDL Calc [Mass/Vol]on 22-10-7599Acuphcmfpas in VLDL [Mass/Vol]Cholesterol in VLDL [Mass/volume] in Serum or Plasma by calculationThe [facility] Of [facility] Center Eosinophils/100 WBC Auto (Bld)on 51-95-5241Bkefrincyne/100 WBC (Bld)Automated eosinophil %0.9-7.0[facility] CenterErythrocyte distribution width Auto (RBC) [Ratio]on 22-31-8587Qzbddwhewqe distribution width (RBC) [Ratio]Erythrocyte distribution width [Ratio] by Automated count11.0-15.0 [facility] CenterEstimated glomerular filtration rate (GFR) non- Americanon 12-98-9241NBQ/1.73 sq M.predicted among non-blacks MDRD (S/P/Bld) [Vol rate/Area]Estimated glomerular filtration rate (GFR) non->=60 mL/min/1.73m 2FAultman Alliance Community HospitalGlobulin Calc (S) [Mass/Vol]on 91-85-5453Ujqwaykw (S) [Mass/Vol]Serum globulin measurement by calculation (mass/volume)[facility] CenterGlucose mean value [Mass/volume] in Blood Estimated from glycated hemoglobinon 40-15-2579Vhcsxsx glucose Estimated from glycated hemoglobin (Bld) [Mass/Vol]Glucose mean value [Mass/volume] in Blood Estimated from glycated hemoglobinThe University Of [facility] Medical CenterHematocrit Auto (Bld) [Volume fraction]on 77-82-7312Cnxwknihsc (Bld) [Volume fraction]Hematocrit [Volume Fraction] of Blood by Automated count 36.0-48.0[facility] CenterHemoglobin A1c percentageon 08-06-2024 HbA1c (Bld) [Mass fraction]Hemoglobin A1c percentageHigh4.5-6.2FAultman Alliance Community HospitalComment on above:ADA RECOMMENDED LIMIT 4.0 - 6.0ADA THERAPEUTIC TARGET < 7.0ACTION SUGGESTED> 7.0Hemoglobin [Mass/volume] in Bloodon 95-56-4538Oxfrixfpyc (Bld) [Mass/Vol]Hemoglobin [Mass/volume] in Blood12.0-16.0 [facility] CenterLaboratory - Chemistry and Chemistry - challengeon 65-19-4821Ptkeimz [Mass/Vol]4.1 g/dL3.4-5.0[facility] CenterALP [Catalytic activity/Vol]91 U/V12-738KwhufgiasThe [facility] CenterALT [Catalytic activity/Vol]24 U/E13-58IonmvkthhThe [facility] AST [Catalytic activity/Vol]23 U/N57-93NlqzadczuThe [facility] Bilirubin [Mass/Vol]0.5 mg/dL0.2-1.0[facility] CenterCalcium [Mass/Vol]10.1 mg/dL8.5-10.1FAultman Alliance Community HospitalChloride [Moles/Vol]100 mmol/G02-039AxkrzxmxqThe [facility] Of [facility] CenterCholesterol [Mass/Vol]258 mg/dLHigh<=200[facility] CenterCholesterol in HDL [Mass/Vol]86 mg/xBXobi63-00SdfdvojygThe [facility] CenterComment on above:> or =60 mg/dl - LOW CARDIOVASCULAR RISK<40 mg/dl - HIGH CARDIOVASCULAR RISKCO2 [Moles/Vol]27.5 mmol/L21.0-32.0[facility] CenterCreatinine [Mass/Vol]0.91 mg/dL0.55-1.02[facility] CenterGFR/1.73 sq M.predicted MDRD (S/P/Bld) [Vol rate/Area]mL/min/{1.73_m2}>=60 mL/min/1.73m 2 [facility] CenterGlucose [Mass/Vol]125 mg/aSOowm94-909ItbnvfgpiThe [facility] CenterMagnesium [Mass/Vol]1.9 mg/dL1.8-2.4FAultman Alliance Community HospitalPotassium [Moles/Vol]4.0 mmol/L3.5-5.1FAultman Alliance Community HospitalProtein [Mass/Vol]7.7 g/dL6.4-8.2FGalion Hospitalodium [Moles/Vol]140 mmol/C410-029DjksdfvbfThe [facility] Of [facility] Medical CenterTriglyceride [Mass/Vol]158 mg/dLHigh<=150[facility] CenterTSH Qn50.079 m[IU]/LHigh0.358-3.740[facility] CenterUrea nitrogen [Mass/Vol] 18.0 mg/dL7.0-18.0[facility] CenterUrea nitrogen/Creatinine [Mass ratio]19.8 mg/mgThe [facility] Of [facility] CenterLaboratory - Hematology and Cell countson 25-70-8530Nvggsyma granulocytes/100 WBC (Bld)0.5 %0.0-0.5 [facility] CenterLeukocytes [#/volume] corrected for nucleated erythrocytes in Blood by Automated counon 78-67-4593EWR corrected for nucl RBC Auto (Bld) [#/Vol]Leukocytes [#/volume] corrected for nucleated erythrocytes in Blood by Automated coun4.0-11.0[facility] CenterLymphocytes Auto (Bld) [#/Vol]on 17-13-1109Lnitoucvyds (Bld) [#/Vol]Lymphocytes [#/volume] in Blood by Automated count1.2-3.8[facility] CenterLymphocytes/100 WBC Auto (Bld)on 10-54-4043Eoxsotehkvg/100 WBC (Bld)Lymphocytes/100 leukocytes in Blood by Automated count20.5-60.0[facility] HospitalH Auto (RBC) [Entitic mass]on 08-90-4055NPZ (RBC) [Entitic mass]MCH [Entitic mass] by Automated count26.7-34.0[facility] CenterMCHC Auto (RBC) [Mass/Vol]on 40-17-8370BUHS (RBC) [Mass/Vol]MCHC [Mass/volume] by Automated count29.9-35.2FAultman Alliance Community HospitalMCV Auto (RBC) [Entitic vol]on 23-52-4968UZS (RBC) [Entitic vol]MCV [Entitic volume] by Automated count 81.0-99.0[facility] CenterMonocytes Auto (Bld) [#/Vol]on 80-96-1138Sawowgvfo (Bld) [#/Vol]Automated blood monocyte count0.3-0.8[facility] CenterMonocytes/100 WBC Auto (Bld)on 40-44-0110Tuhiqkaxy/100 WBC (Bld)Automated monocyte %1.7-12.0[facility] Neutrophils Auto (Bld) [#/Vol]on 49-83-3795Rvbsbhtdsed (Bld) [#/Vol]Neutrophils [#/volume] in Blood by Automated count1.4-6.5FAultman Alliance [facility] Hospital Neutrophils/100 WBC Auto (Bld)on 47-04-5948Zpbrwdlaeuw/100 WBC (Bld)Automated neutrophil %43.0-75.0[facility] CenterNo Panel Informationon 84-20-0457Odwapedepqi # (Auto)0.4 10 3/uL0.0-0.7FAultman Alliance Community HospitalImmature Granulocyte # (Auto)0.04 10 3/uLHigh0.00-0.03[facility] CenterTroponin I High Sensitivity6.6 pg/mL4.0-51.3FAultman Alliance Community HospitalComment on above:CUT-OFF POINTS HAVE BEEN ESTABLISHED [...] INFORMATION.Platelet mean volume Auto (Bld) [Entitic vol]on 56-41-5505Knneqiuw mean volume (Bld) [Entitic vol] Platelet mean volume [Entitic volume] in Blood by Automated count9.5-13.5 [facility] CenterPlatelets Auto (Bld) [#/Vol]on 08-06-2024 Platelets (Bld) [#/Vol]Platelets [#/volume] in Blood by Automated xdedy833-653 [facility] CenterRBC Auto (Bld) [#/Vol]on 44-92-6230SPD (Bld) [#/Vol]Erythrocytes [#/volume] in Blood by Automated count4.20-5.40[facility] Northerum or plasma albumin/globulin mass ratioon 08-06-2024 Albumin/Globulin [Mass ratio]Serum or plasma albumin/globulin mass ratio [facility] Northerum or plasma anion gap determinationon 40-53-3935Nxctx gap [Moles/Vol]Serum or plasma anion gap determinationPremier Health Miami [facility] Hospital Northerum or plasma total cholesterol/high density lipoprotein (HDL) cholesterol mass constantin 04-99-5292Ldirzsvymbu.total/Cholesterol in HDL [Mass ratio]Serum or plasma total cholesterol/high density lipoprotein (HDL) cholesterol mass ratThe [facility] CenterComment on above:3.3 - 4.4 LOW RISK4.4 - 7.1 AVERAGE RISK7.1 - 11.0 MODERATE RISK>11.0 HIGH RISK Basophils Auto (Bld) [#/Vol]on 52-29-0757Sgvfzxhaw (Bld) [#/Vol]Automated basophil count0.0-0.1FAultman Alliance Community HospitalBasophils/100 WBC Auto (Bld)on 70-98-2938Codaqfsam/100 WBC (Bld)Automated basophil %0.2-2.0[facility] CenterEosinophils/100 WBC Auto (Bld)on 08-05-2024 Eosinophils/100 WBC (Bld)Automated eosinophil %0.9-7.0[facility] CenterErythrocyte distribution width Auto (RBC) [Ratio]on 85-91-6913Gauoqdhswzd distribution width (RBC) [Ratio]Erythrocyte distribution width [Ratio] by Automated count11.0-15.0[facility] CenterEstimated glomerular filtration rate (GFR) non- Americanon 02-55-2616PJI/1.73 sq M.predicted among non-blacks MDRD (S/P/Bld) [Vol rate/Area]Estimated glomerular filtration rate (GFR) non->=60 mL/min/1.73m 2FAultman Alliance Community HospitalGlobulin Calc (S) [Mass/Vol]on 38-94-0910Ihqptcls (S) [Mass/Vol]Serum globulin measurement by calculation (mass/volume)[facility] CenterHematocrit Auto (Bld) [Volume fraction]on 35-15-0759Uhusrzgstw (Bld) [Volume fraction]Hematocrit [Volume Fraction] of Blood by Automated count 36.0-48.0[facility] CenterHemoglobin [Mass/volume] in Bloodon 43-19-3358Qcdmukmktj (Bld) [Mass/Vol]Hemoglobin [Mass/volume] in Blood12.0-16.0 [facility] CenterINR in Platelet poor plasma by Coagulation assayon 29-81-1479YJD Coag (PPP) [Relative time]INR in Platelet poor plasma by Coagulation assayThe University Of [facility] Medical CenterComment on above:DESIRED INR:2.0-3.0 CONDITIONS NOT LISTED BELOW2.5-3.5 FOR PROSTHETIC HEART VALVE REPLACEMENT2.5-3.5 RECURRENT THROMBOSISLaboratory - Chemistry and Chemistry - challengeon 41-67-3021Bnwvskd [Mass/Vol]3.7 g/dL3.4-5.0[facility] CenterALP [Catalytic activity/Vol]91 U/A75-258AaslqgpyfThe [facility] Of [facility] CenterALT [Catalytic activity/Vol]20 U/N27-19QlrihllmvThe [facility] AST [Catalytic activity/Vol]20 U/F59-97SxbprzkvqThe [facility] Bilirubin [Mass/Vol]0.4 mg/dL0.2-1.0[facility] CenterCalcium [Mass/Vol]10.0 mg/dL8.5-10.1FAultman Alliance Community HospitalChloride [Moles/Vol]102 mmol/Q79-154SppdsroeqThe [facility] Of [facility] Medical CenterCO2 [Moles/Vol]28.1 mmol/L21.0-32.0[facility] CenterCreatinine [Mass/Vol]0.81 mg/dL 0.55-1.02[facility] CenterGFR/1.73 sq M.predicted MDRD (S/P/Bld) [Vol rate/Area]mL/min/{1.73_m2}>=60 mL/min/1.73m 2FAultman Alliance Community HospitalGlucose [Mass/Vol]146 mg/rLZfpo01-316RinlbjcxtThe [facility] Magnesium [Mass/Vol]1.7 mg/dLLow1.8-2.4FAultman [facility] Hospital Natriuretic peptide B (Bld) [Mass/Vol]56.0 pg/mL<=900.0[facility] CenterPotassium [Moles/Vol]4.7 mmol/L3.5-5.1FAultman Alliance Community HospitalProtein [Mass/Vol]7.4 g/dL6.4-8.2FGalion Hospitalodium [Moles/Vol]138 mmol/G359-284FseyipnsjThe University Of [facility] Medical CenterUrea nitrogen [Mass/Vol]21.0 mg/dLHigh7.0-18.0[facility] CenterUrea nitrogen/Creatinine [Mass ratio]25.9 mg/mgThe [facility] Laboratory - Hematology and Cell countson 32-73-7744Tfvnflqg granulocytes/100 WBC (Bld)0.7 %High0.0-0.5FAultman Alliance Community HospitalLaboratory - Microbiology and Antimicrobial susceptibilityon 11-68-1665JIOZ-CoV-2 (COVID-19) RNA ARIADNA+probe Ql (Unsp spec)NegativeNEGATIVEThe [facility] Comment on above:This test has [...] nucleated erythrocytes in Blood by Automated counon 53-41-8073MFW corrected for nucl RBC Auto (Bld) [#/Vol]Leukocytes [#/volume] corrected for nucleated erythrocytes in Blood by Automated coun4.0-11.0[facility] Lymphocytes Auto (Bld) [#/Vol]on 34-54-0726Icswtalcufc (Bld) [#/Vol]Lymphocytes [#/volume] in Blood by Automated count1.2-3.8[facility] Lymphocytes/100 WBC Auto (Bld)on 16-12-9117Qhunzurnium/100 WBC (Bld) Lymphocytes/100 leukocytes in Blood by Automated count20.5-60.0[facility] Auto (RBC) [Entitic mass]on 11-14-0317CTU (RBC) [Entitic mass]MCH [Entitic mass] by Automated count26.7-34.0[facility] Auto (RBC) [Mass/Vol]on 38-53-3649MMFF (RBC) [Mass/Vol]MCHC [Mass/volume] by Automated count29.9-35.2FAultman Alliance Community HospitalMCV Auto (RBC) [Entitic vol]on 45-15-8461OZR (RBC) [Entitic vol]MCV [Entitic volume] by Automated count81.0-99.0[facility] CenterMonocytes Auto (Bld) [#/Vol]on 34-03-7571Rhlvzortm (Bld) [#/Vol]Automated blood monocyte count0.3-0.8 [facility] CenterMonocytes/100 WBC Auto (Bld)on 08-05-2024 Monocytes/100 WBC (Bld)Automated monocyte %1.7-12.0[facility] CenterNeutrophils Auto (Bld) [#/Vol]on 00-92-9637Omzbkgehljj (Bld) [#/Vol] Neutrophils [#/volume] in Blood by Automated count1.4-6.5FAultman Alliance Community HospitalNeutrophils/100 WBC Auto (Bld)on 65-60-4678Pozabwmudqf/100 WBC (Bld)Automated neutrophil %43.0-75.0[facility] CenterNo Panel Informationon 24-04-9698Erhrmgtq I High Sensitivity7.6 pg/mL4.0-51.3FAultman Alliance Community HospitalComment on above:CUT-OFF POINTS HAVE BEEN ESTABLISHED [...] DIAGNOSTIC AND CLINICAL INFORMATION.Eosinophils # (Auto)0.5 10 3/uL0.0-0.7FAultman Alliance Community HospitalImmature Granulocyte # (Auto)0.07 10 3/uLHigh0.00-0.03[facility] CenterPlatelet mean volume Auto (Bld) [Entitic vol]on 51-89-2239Jxvhkmth mean volume (Bld) [Entitic vol]Platelet mean volume [Entitic volume] in Blood by Automated count9.5-13.5 [facility] CenterPlatelets Auto (Bld) [#/Vol]on 08-05-2024 Platelets (Bld) [#/Vol]Platelets [#/volume] in Blood by Automated yrbvh227-198 [facility] CenterProthrombin time (PT)on 07-45-7099DP Coag (PPP) [Time]Prothrombin time (PT)9.0-11.6FAultman Alliance Community HospitalRBC Auto (Bld) [#/Vol]on 85-50-9665DNW (Bld) [#/Vol]Erythrocytes [#/volume] in Blood by Automated count4.20-5.40[facility] Northerum or plasma albumin/globulin mass ratioon 41-34-3488Fswrnzp/Globulin [Mass ratio]Serum or plasma albumin/globulin mass ratioPremier Health Miami [facility] Hospital Northerum or plasma anion gap determinationon 09-76-7566Glmel gap [Moles/Vol]Serum or plasma anion gap determinationThe [facility] Medical CenterBlood Urea Nitrogenon 22-30-5978Ogea nitrogen [Mass/Vol]20 mg/dLNormal7-25The [facility] Physician GroupComment on above:Order Comment: STAT FOR CTPerformed By: #### BUN, CREAT #### [place] [address] USACT abdomen pelvis w conon 47-58-6988UB abdomen pelvis w [facility] [address] [place] [address] CT Scan Report Signed Patient: Canelo Pathak MR#: [id number] 4 : 1965 Acct:[id number] Age/Sex: 58 / F ADM Date: 07/30/24 Loc: CT Room: Type: [facility] Attending Dr: Carol Alegria DO Copies [...] Cameron Worthy M.D.07/30/2024 1:18 PM Dictation Location: [place] [address] Transcribed By: [facility] 07/30/24 1318 Dictated By: Cameron Worthy MD 07/30/24 1314 Signed By: 07/30/24 1318NoCone Health Alam[facility] Regional Physician GroupCreatinchildren[facility] 07-30-2024 Creatinine [Mass/Vol]0.85 mg/dLNormal0.60-1.20The [facility] Comment on above:Order Comment: STAT FOR CTPerformed By: #### BUN, CREAT #### [facility] [address] [place] [address] USAGFR/1.73 sq M.predicted MDRD (S/P/Bld) [Vol rate/Area] mL/min/{1.73_m2}NormalThe [facility] Physician GroupComment on above:Order Comment: STAT FOR CTResult Comment: PERFORMED BY: [place] [address] PATHOLOGIST ROLL UP MACHINE OPERATOR JERRI ROMERO M.D.Performed By: #### BUN, CREAT #### [facility] [address] [place] [address] USACreatinine [Mass/volume] in Serum or PlasmaOrdered By: Carol Alegria on 65-31-4846Bawvcalasi [Mass/Vol]Creatinine [Mass/volume] in Serum or Plasma0.60-1.20[facility] CenterNo Panel InformationOrdered By: Carol Alegria on 01-77-7116Insteyewz GFR (CKD-EPI)> 60.0 mL/MinThe University Of [facility]edo Medical CenterPharmacy Creatinine Clearance (ChemN/AFAultman Alliance Community HospitalUrea nitrogen [Mass/volume] in Serum or PlasmaOrdered By: Carol Alegria on 44-01-0545Fkit nitrogen [Mass/Vol]Urea nitrogen [Mass/volume] in Serum or Plasma7-[facility] CenterBasophils Auto (Bld) [#/Vol]on 34-83-0172Alxzljgru (Bld) [#/Vol]0.1 10 3/uL0.0-0.1FAultman Alliance Community HospitalBasophils (Bld) [#/Vol]Automated basophil count0.0-0.1FAultman Alliance Community HospitalBaphils/100 WBC Auto (Bld)on 80-86-4097Lgputenij/100 WBC (Bld)0.9 %0.2-2.0[facility] CenterBasophils/100 WBC (Bld) Automated basophil %0.2-2.0[facility] CenterCholesterol in LDL Calc [Mass/Vol]on 83-06-3595Tprgnsmezlz in LDL [Mass/Vol]87.0 mg/dLThe University Of [facility] Medical CenterComment on above:<100 mg/dl NUMNMKJ603-652 mg/dl NEAR OR ABOVE DYAKTCY516-632 mg/dl BORDERLINE NJYD624-457 mg/dl HIGH>190 mg/dl VERY HIGH Cholesterol in LDL [Mass/Vol]Cholesterol in LDL [Mass/volume] in Serum or Plasma by calculationThe University Of [facility] Medical CenterComment on above:<100 mg/dl VUNNZLN823-952 mg/dl NEAR OR ABOVE MAMBJUH444-408 mg/dl BORDERLINE KVYA058-789 mg/dl HIGH>190 mg/dl VERY HIGHCholesterol in VLDL Calc [Mass/Vol]on 03-20-2024 Cholesterol in VLDL [Mass/Vol]15.0 mg/dLThe [facility] Of [facility] Cholesterol in VLDL [Mass/Vol]Cholesterol in VLDL [Mass/volume] in Serum or Plasma by calculationThe [facility] Of [facility] Medical CenterEosinophils/100 WBC Auto (Bld)on 94-23-3870Qxpfyyqljnq/100 WBC (Bld)3.3 %0.9-7.0[facility] CenterEosinophils/100 WBC (Bld)Automated eosinophil %0.9-7.0[facility] CenterErythrocyte distribution width Auto (RBC) [Ratio]on 59-54-7739Wprhwqpuwha distribution width (RBC) [Ratio]12.4 %11.0-15.0[facility] CenterErythrocyte distribution width (RBC) [Ratio]Erythrocyte distribution width [Ratio] by Automated count11.0-15.0[facility] CenterEstimated glomerular filtration rate (GFR) non- Americanon 91-59-3728OGU/1.73 sq M.predicted among non-blacks MDRD (S/P/Bld) [Vol rate/Area]mL/min/{1.73_m2}>=60 mL/min/1.73m 2FAultman Alliance [facility] Hospital GFR/1.73 sq M.predicted among non-blacks MDRD (S/P/Bld) [Vol rate/Area]Estimated glomerular filtration rate (GFR) non->=60 mL/min/1.73m 2 [facility] CenterGlobulin Calc (S) [Mass/Vol]on 03-20-2024 Globulin (S) [Mass/Vol]3.3 g/dLThe University Of [facility]edo Medical CenterGlobulin (S) [Mass/Vol]Serum globulin measurement by calculation (mass/volume)[facility] CenterGlucose mean value [Mass/volume] in Blood Estimated from glycated hemoglobinon 59-05-7564Qayueby glucose Estimated from glycated hemoglobin (Bld) [Mass/Vol]140 mg/dLThe University Of Toledo Medical CenterAverage glucose Estimated from glycated hemoglobin (Bld) [Mass/Vol]Glucose mean value [Mass/volume] in Blood Estimated from glycated hemoglobinThe University Of Toledo Medical CenterHematocrit Auto (Bld) [Volume fraction]on 92-47-2800Zdziagomot (Bld) [Volume fraction]39.9 %36.0-48.0[facility] Hematocrit (Bld) [Volume fraction]Hematocrit [Volume Fraction] of Blood by Automated count36.0-48.0[facility] CenterHemoglobin [Mass/volume] in Bloodon 94-69-4691Irgqqyicay (Bld) [Mass/Vol]13.2 g/dL12.0-16.0 [facility] CenterHemoglobin (Bld) [Mass/Vol]Hemoglobin [Mass/volume] in Blood12.0-16.0[facility] CenterLaboratory - Chemistry and Chemistry - challengeon 52-04-1971Yovrfyt [Mass/Vol]3.3 g/dLLow 3.4-5.0[facility] CenterALP [Catalytic activity/Vol]72 U/L46-116 [facility] CenterALT [Catalytic activity/Vol]22 U/L14-59 [facility] CenterAST [Catalytic activity/Vol]11 U/YNuc66-75 [facility] CenterBilirubin [Mass/Vol]0.4 mg/dL0.2-1.0[facility] CenterCalcium [Mass/Vol]9.0 mg/dL8.5-10.1FAultman Alliance Community HospitalChloride [Moles/Vol]105 mmol/L70-031DuijvqwmcThe University Of [facility] Medical CenterCholesterol [Mass/Vol]174 mg/dL<=200[facility] Cholesterol in HDL [Mass/Vol]72 mg/rGUwzy52-45FvjmrgpokThe [facility] Comment on above:> or =60 mg/dl - LOW CARDIOVASCULAR RISK<40 mg/dl - HIGH CARDIOVASCULAR RISKCO2 [Moles/Vol]28.6 mmol/L21.0-32.0[facility] CenterCreatinine [Mass/Vol]0.89 mg/dL0.55-1.02[facility] Free T4 [Mass/Vol]1.53 ng/dLHigh0.76-1.46[facility] GFR/1.73 sq M.predicted MDRD (S/P/Bld) [Vol rate/Area]mL/min/{1.73_m2}>=60 mL/min/1.73m 2FAultman Alliance Community HospitalGlucose [Mass/Vol]119 mg/dLHigh 74-106[facility] CenterPotassium [Moles/Vol]4.1 mmol/L3.5-5.1 [facility] CenterProtein [Mass/Vol]6.6 g/dL6.4-8.2FGalion Hospitalodium [Moles/Vol]143 mmol/X775-953EdaduakqaThe University Of [facility] Medical CenterTriglyceride [Mass/Vol]75 mg/dL<=150The [facility] CenterTSH Qn1.000 m[IU]/L0.358-3.740[facility] CenterUrea nitrogen [Mass/Vol]18.0 mg/dL7.0-18.0[facility] CenterUrea nitrogen/Creatinine [Mass ratio]20.2 mg/mgThe [facility] Laboratory - Hematology and Cell countson 56-47-9714QzX8p (Bld) [Mass fraction] 6.5 %High4.5-6.2FAultman Alliance Community HospitalComment on above:ADA RECOMMENDED LIMIT 4.0 - 6.0ADA THERAPEUTIC TARGET < 7.0ACTION SUGGESTED> 7.0 Immature granulocytes/100 WBC (Bld)0.2 %0.0-0.5FAultman Alliance Community Hospital Leukocytes [#/volume] corrected for nucleated erythrocytes in Blood by Automated counon 48-20-8910QAA corrected for nucl RBC Auto (Bld) [#/Vol]8.5 10 3/uL 4.0-11.0[facility] CenterWBC corrected for nucl RBC Auto (Bld) [#/Vol]Leukocytes [#/volume] corrected for nucleated erythrocytes in Blood by Automated coun4.0-11.0[facility] CenterLymphocytes Auto (Bld) [#/Vol]on 72-41-4306Usyosrhprhj (Bld) [#/Vol]2.3 10 3/uL1.2-3.8[facility] CenterLymphocytes (Bld) [#/Vol]Lymphocytes [#/volume] in Blood by Automated count1.2-3.8[facility] CenterLymphocytes/100 WBC Auto (Bld)on 07-89-3285Wqukdupxtlw/100 WBC (Bld)26.5 %20.5-60.0[facility] CenterLymphocytes/100 WBC (Bld)Lymphocytes/100 leukocytes in Blood by Automated count20.5-60.0[facility] Auto (RBC) [Entitic mass]on 08-01-1807IBE (RBC) [Entitic mass]31.0 pg26.7-34.0[facility] (RBC) [Entitic mass]MCH [Entitic mass] by Automated count26.7-34.0[facility] HospitalHC Auto (RBC) [Mass/Vol]on 05-58-6202CEDW (RBC) [Mass/Vol]33.1 g/dL29.9-35.2FOhioHealth Dublin Methodist HospitalHC (RBC) [Mass/Vol]MCHC [Mass/volume] by Automated count29.9-35.2 [facility] HospitalV Auto (RBC) [Entitic vol]on 34-86-7644DKR (RBC) [Entitic vol]93.7 fL81.0-99.0[facility] HospitalV (RBC) [Entitic vol]MCV [Entitic volume] by Automated count81.0-99.0[facility] CenterMonocytes Auto (Bld) [#/Vol]on 38-61-8087Agsothfqk (Bld) [#/Vol] 0.6 10 3/uL0.3-0.8[facility] CenterMonocytes (Bld) [#/Vol] Automated blood monocyte count0.3-0.8[facility] Monocytes/100 WBC Auto (Bld)on 91-84-7971Xwujxeeqa/100 WBC (Bld)6.4 %1.7-12.0 [facility] CenterMonocytes/100 WBC (Bld)Automated monocyte % 1.7-12.0[facility] CenterNeutrophils Auto (Bld) [#/Vol]on 39-48-6763Ynewhxjkkxr (Bld) [#/Vol]5.4 10 3/uL1.4-6.5FAultman Alliance Community HospitalNeutrophils (Bld) [#/Vol]Neutrophils [#/volume] in Blood by Automated count1.4-6.5FAultman Alliance Community HospitalNeutrophils/100 WBC Auto (Bld)on 77-88-0015Likzzazbxyc/100 WBC (Bld)62.7 %43.0-75.0[facility] CenterNeutrophils/100 WBC (Bld)Automated neutrophil %43.0-75.0[facility] CenterNo Panel Informationon 22-62-812370935833-Zqyrnmx Vitamin D Total36.0 ng/mLThe [facility] Of [facility]edo Medical CenterComment on above:<20 ng/mL Vit D cmewpqmzx42-<30 ng/mL Vit D -688 ng/mL Vit D sufficient>100 ng/mL Potential ToxicityEosinophils # (Auto)0.3 10 3/uL0.0-0.7FAultman Alliance Community HospitalImmature Granulocyte # (Auto)0.02 10 3/uL0.00-0.03[facility] CenterTotal Gyjzqlezyuakhpno12 ng/kJ32-537DodsgkwfgThe University Of [facility]edo Medical CenterComment on above:Performed at: [facility] [address] [id number] Director: Giuseppe Newell PhD, Phone: [phone] Platelet mean volume Auto (Bld) [Entitic vol]on 15-01-7098Klfihtdp mean volume (Bld) [Entitic vol]9.5 fL9.5-13.5FAultman Alliance Community HospitalPlatelet mean volume (Bld) [Entitic vol]Platelet mean volume [Entitic volume] in Blood by Automated count9.5-13.5FAultman Alliance Community HospitalPlatelets Auto (Bld) [#/Vol]on 60-34-7949Wtqwysdiy (Bld) [#/Vol]364 10 3/jP117-697NiogqkygsThe University Of Toledo Medical CenterPlatelets (Bld) [#/Vol]Platelets [#/volume] in Blood by Automated -275TarxjwwcmThe University Of [facility]edo Medical CenterRBC Auto (Bld) [#/Vol]on 03-20-2024 RBC (Bld) [#/Vol]4.26 10 6/uL4.20-5.40The [facility] CenterRBC (Bld) [#/Vol]Erythrocytes [#/volume] in Blood by Automated count4.20-5.40[facility] Northerum or plasma albumin/globulin mass ratioon 03-20-2024 Albumin/Globulin [Mass ratio]1.0 {ratio}[facility] Albumin/Globulin [Mass ratio]Serum or plasma albumin/globulin mass ratio [facility] Northerum or plasma anion gap determinationon 63-98-3394Rrrnk gap [Moles/Vol]13.5 mmol/LFAultman Alliance Community HospitalAnion gap [Moles/Vol]Serum or plasma anion gap determinationPremier Health [facility] Hospital Northerum or plasma total cholesterol/high density lipoprotein (HDL) cholesterol mass constantin 11-98-5034Uuseadicezt.total/Cholesterol in HDL [Mass ratio]2.4 {ratio}[facility] CenterComment on above:3.3 - 4.4 LOW RISK4.4 - 7.1 AVERAGE RISK7.1 - 11.0 MODERATE RISK>11.0 HIGH RISK Cholesterol.total/Cholesterol in HDL [Mass ratio]Serum or plasma total cholesterol/high density lipoprotein (HDL) cholesterol mass [facility] CenterComment on above:3.3 - 4.4 LOW RISK4.4 - 7.1 AVERAGE RISK7.1 - 11.0 MODERATE RISK>11.0 HIGH RISKGastroenterology Office/Clinic Noteon 78-88-0275Khhzvssupiltptig Office/Clinic NoteChief Complaint Followup for abd pain, chest pain, vomiting, diarrhea History of Present Illness Patient presents to GI clinic for a followup for abdominal pain radiating to chest pain, vomiting and diarrhea. KATIANA was 06/26/22 Continues to have persistent acid reflux despite Nexium 40 mg daily. Has anywhere from 5-10 stools per day type on [place] stool scale form, urgent and explosive to [...] water, # 120 tabs, 0 Refill(s), Pharmacy: [facility]/pharmacy #[id number] esomeprazole, 1 caps, Oral, BID, # 180 caps, 0 Refill(s), Pharmacy: [facility]/pharmacy #[id number] ondansetron, 1 tabs, Oral, q8hr, PRN, # 60 tabs, 0 Refill(s), Pharmacy: [facility]/pharmacy #[id number] polyethylene glycol 3350 with electrolytes, See Instructions, for colonoscopy prep, # 4,000 mL, 0 Refill(s), Pharmacy: [facility]/pharmacy #[id number] 1. Diarrhea s/p cholecystectomy - check CBC/CMP/ttg [...] of adequate bowel prep and need for hog driver to accompany day of procedure, verbalizes [...] Ongoing Asthma Endometriosis Fibromyalg (more content not included)...[facility] 4V adulton 28-90-5876VS hips BI 4V [facility] Main [address] [address] XRay Report Signed Patient: Canelo Pathak MR#: [id number] 4 : 1965 Acct:[id number] Age/Sex: 58 / F ADM Date: 12/05/23 Loc: XD Room: Type: [facility] CLI Attending Dr: Logan Brown MD [...] Omid Seals M.D.12/05/2023 5:09 PM Dictation Location: [place] [address] Transcribed By: [facility] 12/05/231708 Dictated By: Omid Seals DO 12/05/231707 Signed By: 12/05/23 1709[facility] Physician GroupXR lumbar spine AP/LAT/FLX/EXTon 59-85-7188TX lumbar spine AP/LAT/FLX/EXTO[facility] Main [place] [address] [place] [address] XRay Report Signed Patient: Canelo Pathak MR#: [id number] 4 : 1965 Acct:[id number] Age/Sex: 58 / F ADM Date: 12/05/23 Loc: XD Room: Type: [facility] CLI Attending Dr: Logan Brown MD [...] Omid Seals M.D.12/05/2023 5:08 PM Dictation Location: [facility]08 Transcribed By: [facility] 12/05/231707 Dictated By: Omid Seals DO 12/05/231705 Signed By: 12/05/231707[facility] Physician GroupEstimated glomerular filtration rate (GFR) non- Americanon 21-77-2654BTP/1.73 sq M.predicted among non- blacks MDRD (S/P/Bld) [Vol rate/Area]mL/min/{1.73_m2}>=60The [facility] CenterLaboratory - Chemistry and Chemistry - challengeon 10-25-2023 Calcium [Mass/Vol]9.3 mg/dL8.5-10.1FAultman Alliance Community HospitalChloride [Moles/Vol]103 mmol/I37-173QzgyyxgyyThe University Of [facility] Medical CenterCO2 [Moles/Vol]29.7 mmol/L21.0-32.0[facility] CenterCreatinine [Mass/Vol]0.88 mg/dL 0.55-1.02[facility] CenterFree T4 [Mass/Vol]1.33 ng/dL0.76-1.46 [facility] CenterGFR/1.73 sq M.predicted MDRD (S/P/Bld) [Vol rate/Area]mL/min/{1.73_m2}>=60[facility] CenterGlucose [Mass/Vol]121 mg/hKNeqb54-126UdixybqxwThe [facility] Of [facility] Medical CenterPotassium [Moles/Vol]4.4 mmol/L3.5-5.1FGalion Hospitalodium [Moles/Vol] 140 mmol/O475-181YoxplbldgThe University Of [facility] Medical CenterTSH Qn5.994 m[IU]/LHigh 0.358-3.740[facility] CenterUrea nitrogen [Mass/Vol]18.0 mg/dL 7.0-18.0[facility] CenterUrea nitrogen/Creatinine [Mass ratio] 20.5 mg/mgThe University Of [facility] Medical CenterNo Panel Informationon 10-25-2023 Total Mysjfkcsanjotfaq252 ng/oF07-268BtlynkeehThe University Of Toledo Medical CenterComment on above:Performed at: [facility] Lab[address] [id number] Director: Giuseppe Newell PhD, Phone: [phone] or plasma anion gap determinationon 95-06-8029Bjuni gap [Moles/Vol]11.7 mmol/LFAultman Alliance Community HospitalPatient Correspondenceon 82-44-2039Lgdkiva Correspondence [id number]#[id number] Health Perrysburg HospitalMRI HEAD/BRAIN WO/W CONTRon 75-90-3485[place]tcHard[place] [address] Magnetic Resonance Report Signed Patient: CANELO PATHAK MR#: [id number] : 1965 Acct:[id number] Age/Sex: 58 / F ADM Date: 10/09/23 Loc: MRI Attending Dr: Jennie Jiang M.D. Ordering Physician: Jennie Jiang M.D. Date of Service: 10/09/23 Procedure(s): MR head/brain wo/w con Accession Number(s): [id number] cc: JEFF JON ; Jennie Jiang M.D. [place] [address] Patient Name: CANELO PATHAK MRN: [id number] date: 1965 Sex: F Assigned Patient Location: MRI Current Patient Location: MRI Accession/Order Number: [id number] Exam Date: 10/09/2023 12:50 Report Date: 10/09/2023 [...] M.D. Signed By: 10/09/232117 DD/ 14 TD/TT: [employer]:TBHRadiology, Radiologist, - 10/09/2023 [place] [address] Magnetic Resonance Report Signed Patient: CANELO PATHAK MR#: [id number] : 1965 Acct:[id number] Age/Sex: 58 / F ADM Date: 10/09/23 Loc: MRI Attending Dr: Jennie Jiang M.D. Ordering Physician: Jennie Jiang M.D. Date of Service: 10/09/23 Procedure(s): MR head/brain wo/w con Accession Number(s): [id number] cc: JEFF JON ; Jennie Jiang M.D. The [place] [id number] Patient Name: CANELO PATHAK MRN: [id number] date: 1965 Sex: F Assigned Patient Location: MRI Current Patient Location: MRI Accession/Order Number: [id number] Exam Date: 10/09/2023 12:50 Report Date: 10/09/2023 [...] M.D. Signed By: 10/09/232117 DD/ 14 TD/TT: [employer]: SIGIFREDO HealthcareRadiology Study observation (narrative)[facility] HospitalMRI HEAD/BRAIN WO/W CONTROrdered By: Radiologist Radiology on 54-20-6863[employer] Work Phone: ct Internal auditory canal W contrast Marci 09-04-[address] [address] [address] Scan Report Signed Patient: CANELO PATHAK MR#: [id number] : 1965 Acct:[id number] Age/Sex: 57 / F ADM Date: 09/04/23 Loc: CT Attending Dr: Jennie Jiang M.D. Ordering Physician: Jennie Jiang M.D. Date of Service: 09/04/23 Procedure(s): CT int auditory canals w con Accession Number(s): [id number] cc: JEFF JON [place] [address] [place] [id number] Patient Name: CANELO PATHAK MRN: [facility]:[id number] date: 1965 Sex: F Assigned Patient Location: CT Current Patient Location: CT Accession/Order Number: [id number] Exam Date: 09/04/2023 13:20 Report Date: 09/04/2023 [...] M.D. Signed By: 09/04/231653 DD/ 51 TD/TT: [employer]:MELISAHRadiology, Radiologist, - 09/04/2023 [place] [address] CT Scan Report Signed Patient: CANELO PATHAK MR#: [id number] : 1965 Acct:[id number] Age/Sex: 57 / F ADM Date: 09/04/23 Loc: CT Attending Dr: Jennie Jiang M.D. Ordering Physician: Jennie Jiang M.D. Date of Service: 09/04/23 Procedure(s): CT int auditory canals w con Accession Number(s): [id number] cc: JEFF JON [place] [address] Patient Name: CANELO PATHAK MRN: [id number] date: 1965 Sex: F Assigned Patient Location: CT Current Patient Location: CT Accession/Order Number: [id number] Exam Date: 09/04/2023 13:20 Report Date: 09/04/2023 [...] M.D. Signed By: 09/04/231653 DD/ 51 TD/TT: [employer]: SIGIFREDO HealthcareRadiology Study observation (narrative)[facility]OM[facility] HealthcareCT Internal auditory canal W contrast IVOrdered By: Radiologist Radiology on 59-88-8014[employer] Work Phone: automated epithelial cells count in urine sediment (number/area)on 65-50-1728Elhbaywxfk cells Auto (Urine sed) [#/Area]RARE #/LPF NONE/RAREThe University Of Toledo Medical CenterAutomated leukocytes count in urine sediment (number/area)on 50-08-9848UVW Auto (Urine sed) [#/Area]0-2 #/HPF0-2 [facility] CenterAutomated urine specific gravity by refractometryon 51-12-0194Hnsincpd gravity Refractometry automated (U) [Rel density]>=1.0301.005-1.025The [facility] CenterBasophils Auto (Bld) [#/Vol]on 74-26-4179Yuxcmkdaz (Bld) [#/Vol]0.1 10 3/uL0.0-0.1FAultman Alliance Community HospitalBasophils/100 WBC Auto (Bld)on 33-22-1112Hjkauvuuq/100 WBC (Bld) 1.4 %0.2-2.0[facility] CenterBilirubin Auto test strip (U) [Mass/Vol]on 93-96-8197Vbjojmrre (U) [Mass/Vol]NegativeNEGATIVEThe University Of [facility]edo Medical CenterCast typing in urine sediment by light microscopyon 48-39-6086Djrnf LM Nom (Urine sed)NONE SEEN #/LPFNONE SEENThe University Of [facility] Medical CenterCholesterol in LDL Calc [Mass/Vol]on 69-62-7711Edatbiblrxs in LDL [Mass/Vol]101.0 mg/dLThe University Of [facility]edo Medical CenterComment on above:<100 mg/dl HWDYREF681-249 mg/dl NEAR OR ABOVE XUKVKZW280-902 mg/dl BORDERLINE TMOE468-442 mg/dl HIGH>190 mg/dl VERY HIGHCholesterol in VLDL Calc [Mass/Vol]on 53-94-9346Lbfaqzrqhvn in VLDL [Mass/Vol]25.0 mg/dLThe University Of [facility] Medical CenterColor Auto (U)on 80-74-5234Nmske (U)YELLOWYELLOWThe University Of [facility]edo Medical CenterEosinophils/100 WBC Auto (Bld)on 66-43-9547Ryneepqiazf/100 WBC (Bld)5.2 % 0.9-7.0[facility] CenterErythrocyte distribution width Auto (RBC) [Ratio]on 56-23-6144Wlxayxspwxl distribution width (RBC) [Ratio]12.1 % 11.0-15.0[facility] CenterEstimated glomerular filtration rate (GFR) non- Americanon 35-59-9492DSW/1.73 sq M.predicted among non-blacks MDRD (S/P/Bld) [Vol rate/Area]mL/min/{1.73_m2}>=60The [facility] CenterGlobulin Calc (S) [Mass/Vol]on 02-03-8951Mehrrmdg (S) [Mass/Vol]3.3 g/dL [facility] CenterGlucose mean value [Mass/volume] in Blood Estimated from glycated hemoglobinon 41-78-9466Vruricv glucose Estimated from glycated hemoglobin (Bld) [Mass/Vol]143 mg/dLThe [facility] Of [facility] Center Hematocrit Auto (Bld) [Volume fraction]on 57-88-9341Bwafwzbqtr (Bld) [Volume fraction]41.2 %36.0-48.0[facility] CenterHemoglobin [Mass/volume] in Bloodon 49-75-2913Titgecfltt (Bld) [Mass/Vol]13.6 g/dL12.0-16.0 [facility] CenterKetones Auto test strip (U) [Mass/Vol]on 97-63-2820Ztvlrgb (U) [Mass/Vol]NegativeNEGATIVEThe [facility] CenterLaboratory - Chemistry and Chemistry - challengeon 42-46-7884Mvozdbj [Mass/Vol]3.8 g/dL3.4-5.0[facility] CenterALP [Catalytic activity/Vol]72 U/D18-187EwygriajiThe [facility] Of [facility] Medical CenterALT [Catalytic activity/Vol]25 U/M80-44CxqfacpowThe [facility] CenterAST [Catalytic activity/Vol]14 U/P91-21LnckueifaThe University Of [facility]edo Medical CenterBilirubin [Mass/Vol]0.5 mg/dL0.2-1.0[facility] CenterCalcium [Mass/Vol]9.1 mg/dL 8.5-10.1FAultman Alliance Community HospitalChloride [Moles/Vol]103 mmol/L98-107 [facility] CenterCholesterol [Mass/Vol]193 mg/dL<=200The [facility] CenterCholesterol in HDL [Mass/Vol]67 mg/qD40-42SthewdcisThe University Of [facility] Medical CenterComment on above:> or =60 mg/dl - LOW CARDIOVASCULAR RISK<40 mg/dl - HIGH CARDIOVASCULAR RISKCO2 [Moles/Vol]28.7 mmol/L21.0-32.0 [facility] CenterCreatinine [Mass/Vol]0.77 mg/dL0.55-1.02 [facility] CenterFree T4 [Mass/Vol]1.11 ng/dL0.76-1.46The [facility] CenterGFR/1.73 sq M.predicted MDRD (S/P/Bld) [Vol rate/Area] mL/min/{1.73_m2}>=60The [facility] CenterGlucose [Mass/Vol]117 mg/dL 74-106The [facility] CenterPotassium [Moles/Vol]4.2 mmol/L3.5-5.1 [facility] CenterProtein [Mass/Vol]7.1 g/dL6.4-8.2FGalion Hospitalodium [Moles/Vol]142 mmol/P231-639IrpxppzmfThe [facility] Of [facility] Medical CenterTriglyceride [Mass/Vol]125 mg/dL<=150The [facility] CenterTSH Qn18.751 m[IU]/L0.358-3.740The [facility] CenterUrea nitrogen [Mass/Vol]19.0 mg/dL7.0-18.0[facility] CenterUrea nitrogen/Creatinine [Mass ratio]24.7 mg/mgThe [facility] Of [facility] Center Laboratory - Hematology and Cell countson 39-58-6422HnA4f (Bld) [Mass fraction] 6.6 %4.5-6.2FAultman Alliance Community HospitalComment on above:ADA RECOMMENDED LIMIT 4.0 - 6.0ADA THERAPEUTIC TARGET < 7.0ACTION SUGGESTED> 7.0Immature granulocytes/100 WBC (Bld)0.3 %0.0-0.5FAultman Alliance Community Hospital Leukocytes [#/volume] corrected for nucleated erythrocytes in Blood by Automated counon 30-34-8329GVM corrected for nucl RBC Auto (Bld) [#/Vol]7.4 10 3/uL 4.0-11.0The [facility] CenterLymphocytes Auto (Bld) [#/Vol]on 66-28-1384Ndwzrlnzlve (Bld) [#/Vol]2.2 10 3/uL1.2-3.8The [facility] CenterLymphocytes/100 WBC Auto (Bld)on 55-87-5772Fowuoyteyde/100 WBC (Bld)29.7 % 20.5-60.0[facility] HospitalH Auto (RBC) [Entitic mass]on 29-56-7766HQS (RBC) [Entitic mass]31.3 pg26.7-34.0[facility] CenterMCHC Auto (RBC) [Mass/Vol]on 87-42-2686ORRM (RBC) [Mass/Vol]33.0 g/dL 29.9-35.2FAultman Alliance Community HospitalMCV Auto (RBC) [Entitic vol]on 59-99-5369KOS (RBC) [Entitic vol]94.7 fL81.0-99.0[facility] CenterMonocytes Auto (Bld) [#/Vol]on 12-97-9173Weugzgqvt (Bld) [#/Vol]0.5 10 3/uL0.3-0.8[facility] CenterMonocytes/100 WBC Auto (Bld)on 66-58-4143Fzlppfvce/100 WBC (Bld)6.4 %1.7-12.0[facility] Mucus LM Ql (Urine sed)on 55-16-8858Ptrec Ql (Urine sed)MODERATENONE SEEN [facility] CenterNeutrophils Auto (Bld) [#/Vol]on 08-23-2023 Neutrophils (Bld) [#/Vol]4.2 10 3/uL1.4-6.5FAultman Alliance Community Hospital Neutrophils/100 WBC Auto (Bld)on 17-17-5907Wtjitoczced/100 WBC (Bld)57.0 % 43.0-75.0[facility] CenterNo Panel Informationon - Hydroxy Vitamin D Total35.2 ng/mLThe University Of [facility] Medical CenterComment on above:<20 ng/mL Vit D zdokxszbd82-<30 ng/mL Vit D yeuuvyglvwkc61-655 ng/mL Vit D sufficient>100 ng/mL Potential ToxicityEosinophils # (Auto)0.4 10 3/uL0.0-0.7 [facility] CenterFree Triiodothyronine1.94 pg/mL2.18-3.98 [facility] CenterImmature Granulocyte # (Auto)0.02 10 3/uL 0.00-0.03The [facility] CenterPlatelet mean volume Auto (Bld) [Entitic vol]on 25-49-0936Fihjbkqd mean volume (Bld) [Entitic vol]9.7 fL9.5-13.5 [facility] CenterPlatelets Auto (Bld) [#/Vol]on 08-23-2023 Platelets (Bld) [#/Vol]347 10 3/zD747-608YcaylhtxvThe [facility] Of [facility] Center Protein Auto test strip (U) [Mass/Vol]on 95-96-8001Qeuwatv (U) [Mass/Vol] NegativeNEG/TRACEThe University Of [facility] Medical CenterRBC Auto (Bld) [#/Vol]on 61-58-9794ECG (Bld) [#/Vol]4.35 10 6/uL4.20-5.40[facility] Northerum or plasma albumin/globulin mass ratioon 34-26-4919Jmetwll/Globulin [Mass ratio]1.2 {ratio}[facility] Northerum or plasma anion gap determinationon 08-86-8489Fjype gap [Moles/Vol]14.5 mmol/LFGalion Hospitalerum or plasma total cholesterol/high density lipoprotein (HDL) cholesterol mass constantin 12-18-7575Tlcyegrurwc.total/Cholesterol in HDL [Mass ratio]2.9 {ratio}[facility] CenterComment on above:3.3 - 4.4 LOW RISK4.4 - 7.1 AVERAGE RISK7.1 - 11.0 MODERATE RISK>11.0 HIGH RISKSpecific gravity Auto test strip (U) [Rel density]on 92-61-4618Ykzfrzbt gravity (U) [Rel density]CLEARCLEBrecksville VA / Crille HospitalUrine bacteria detection by automated methodon 26-98-3190Omhqqxev Auto Ql (U)NONE SEEN #/HPFNONE [facility]ima City HospitalUrine glucose measurement by test strip (mass/volume)on 30-67-1220Szevasp Test strip (U) [Mass/Vol]NegativeNEGATIVE [facility] CenterUrine hemoglobin detection by automated test stripon 68-63-7667Kpypjpcgec Auto test strip Ql (U)NegativeNEGSt. John of God HospitalUrine nitrite detection by automated test stripon [id number] Auto test strip Ql (U)NegativeNEGSt. John of God HospitalUrine sediment crystal identification by light microscopyon [id number] LM Nom (Urine sed)None Seen #/HPFNone [facility] CenterU[facility] sediment leukocyte count by microscopy (number/high power field)on 25-29-3717QJM LM.HPF (Urine sed) [#/Area]0-2 #/HPFNONE [place]ervilleUrobilin[place] Auto test strip (U) [Mass/Vol]on 08-23-2023 Urobilinogen Qn (U)0.2 {David'U}/dL0.2-1.0[facility] Medical CenterpH Auto test strip (U)on 87-56-2213wT (U)5.5 [pH]5.0-9.0[facility] CenterPatient Correspondenceon 75-77-9592Mjyhumr Correspondence [id number]#1.00BEREALuchoSampson Regional Medical Centerkirby [facility] CenterInsurance Correspondence Officeon 61-22-0266Xkuxybehr Correspondence [id number]#1.00TIFMedina HospitalConsent for Treatmenton 74-34-8092Nzsubul for Treatment [id number]#1.00TIFMedina HospitalConsultation Noteon 77-98-2291Octdhrpcpkwr NotePatient: CANELO PATHAK Age: 57 years Sex: [...] She has tried conservative measures inclusive of sxcq-lqr-iuimybl medications and prescription medications inclusive of meloxicam, [...] Histories Past Medical History: Active Acid reflux (676183094) Asthma (435953810) Hypothyroid (566829072) Family History: No family history items have been selected or recorded. Procedure history: Myringotomy and insertion of T tube (797387010). Comments: 02/22/2011 10:22 TINOT - Triixe HART, Sommer x2 Tonsillectomy (304782516). Cholecystectomy (69905862). Laparoscopy (469073891). Abdominal hysterectomy (505467809). Physical Examination Vital Signs (last 24 hrs) [...] with patient, who voiced (more content not included)...[facility] HospitalComment on above:Result Comment: Electronically Signed By: Casper Nguyen DO.kaylan\Date and Time Signed: 05/10/23 15:07 ESTHIPAA Forms Officeon 38-76-2215OQOAF Forms [id number]#1.00TIFFMercy Health Perrysburg HospitalLegal Correspondence Officeon 98-50-9430Nwcud Correspondence [id number]#1.00TIFMedina HospitalLegal Correspondence Office [id number]#1.00TIFMedina HospitalOffice/Clinic Note-Physicianon 30-07-4697Gcylbu/Clinic Note-Physician [id number]#1.00TIFMedina HospitalPatient Correspondenceon 89-59-2292Oecufgx Correspondence [id number]#1.00The [facility] SystemPatient [id number]#1.00TIFF [facility] HospitalPatient Correspondence [id number]#1.00TIFMedina HospitalPatient [id number]#1.00TIFF [facility] HospitalPatient Correspondence [id number]#1.00The [facility] SystemPatient History Officeon 77-41-8072Sdqynhq History Office [id number]#1.00The [facility] SystemOutside Records Officeon 16-76-5984Pkwcbfi Records Office [id number]#1.00The [facility] SystemRadiology Outside Office Copyon 11-14-7656Fwmbwvmqm Outside Office Copy [id number]#1.00The [facility] SystemReferrals Officeon 02-88-1093Ksoytkhtl Office [id number]#1.00The [facility] SystemMR LUMBAR SPINE WO CONTRASTon 05-09-5183LG LUMBAR SPINE WO CONTRASTEXAM: MRI Lumbar Spine [...] Type 2 Possible Transdermal patchCBC AUTO DIFFon 63-59-5485JROG #0.1 103/ulNormal 0.0-0.1[facility] HospitalComment on above:Performed By: #### FT3, CMP, LIPID, TSH #### [facility] [address] [address] [address] Gin Xiesophils/100 WBC (Bld)0.9 %Normal0.2-2.0The [facility] Comment on above:Performed By: #### FT3, CMP, LIPID, TSH #### [facility] [address] [address] [address] Gin Carlton #0.5 103/ulNormal0.0-0.7The [facility] HospitalComment on above: Performed By: #### FT3, CMP, LIPID, TSH #### [facility] [address] [address] [address] Gin Reganosinophils/100 WBC (Bld)5.8 %Normal0.9-7.0[facility] Comment on above:Performed By: #### FT3, CMP, LIPID, TSH #### [facility] [address] [address] [address] Gin Reganrythrocyte distribution width (RBC) [Ratio]13.0 %Omxuzc17.0-15.0 The [facility] HospitalComment on above:Performed By: #### FT3, CMP, LIPID, TSH #### [facility] [address] [place] [address] Dr. Gin ChewHematocrit (Bld) [Volume fraction]39.7 %Kqdsuq46.0-48.0The [facility] HospitalComment on above:Performed By: #### FT3, CMP, LIPID, TSH #### [facility] [address] [place] [address] Dr. Gin ChewHemoglobin (Bld) [Mass/Vol]13.2 g/uIIycuwk54.0-16.0The [facility] HospitalComment on above:Performed By: #### FT3, CMP, LIPID, TSH #### [facility] [address] [place] [address] Dr. Gin Harris #0.05 10e3/ulCritically high0.00-0.03The [facility] Comment on above:Performed By: #### FT3, CMP, LIPID, TSH #### [facility] [address] [place] [address] Dr. Gin Harris %0.6 %Critically high0.0-0.5The [facility] HospitalComment on above:Performed By: #### FT3, CMP, LIPID, TSH #### [facility] [address] [place] [address] Dr. Gin MckeonMPH #2.1 103/ulNormal1.2-3.8The [facility] HospitalComment on above:Performed By: #### FT3, CMP, LIPID, TSH #### [facility] [address] [place] [address] Dr. Gin Mckeonmphocytes/100 WBC (Bld)27.4 %Aoyjxt06.5-60.0The [facility] HospitalComment on above:Performed By: #### FT3, CMP, LIPID, TSH #### [facility] [address] [place] [address] Dr. Gin JangUAL DIFF REQNONormalThe [facility] HospitalComment on above: Performed By: #### FT3, CMP, LIPID, TSH #### [facility] [address] [place] [address] Dr. Gin Love (RBC) [Entitic mass]30.9 lvSoycrv71.7-34.0The [facility] HospitalComment on above:Performed By: #### FT3, CMP, LIPID, TSH #### [facility] [address] [place] [address] Dr. Gin Love (RBC) [Mass/Vol]33.2 g/hFHezbwt15.9-35.2The [facility] HospitalComment on above:Performed By: #### FT3, CMP, LIPID, TSH #### [facility] [address] [place] [address] Dr. Gin Love (RBC) [Entitic vol]93.0 kBZrylwu70.0-99.0The [facility] HospitalComment on above:Performed By: #### FT3, CMP, LIPID, TSH #### [facility] [address] [place] [address] Dr. Gin Reyes #0.6 103/ulNormal0.3-0.8The [facility] HospitalComment on above:Performed By: #### FT3, CMP, LIPID, TSH #### [facility] [address] [place] [address] Dr. Gin Mathiasocytes/100 WBC (Bld)7.1 %Normal1.7-12.0The [facility] Comment on above:Performed By: #### FT3, CMP, LIPID, TSH #### [facility] [address] [place] [address] Dr. Gin Romero #4.5 103/ulNormal1.4-6.5The [facility] HospitalComment on above:Performed By: #### FT3, CMP, LIPID, TSH #### [facility] [address] [place] [address] Dr. Gin Boutrophils/100 WBC (Bld)58.2 %Qrogwg85.0-75.0The [facility] HospitalComment on above:Performed By: #### FT3, CMP, LIPID, TSH #### [facility] [address] [place] [address] Dr. Gin ChewPlatelet mean volume (Bld) [Entitic vol]9.7 fLNormal9.5-13.5The [facility] HospitalComment on above:Performed By: #### FT3, CMP, LIPID, TSH #### [facility] [address] [place] [address] Dr. Gin ChewPLT339 103/gwAiznxb788-377Ous [facility] HospitalComment on above: Performed By: #### FT3, CMP, LIPID, TSH #### [facility] [address] [place] [address] Dr. Gin ChewRBC4.27 106/ulNormal4.20-5.40The [facility] Campusment on above:Performed By: #### FT3, CMP, LIPID, TSH #### [facility] [address] [place] [address] Dr. Gin ChewWBC7.7 103/ulNormal4.0-11.0The [facility] HospitalComment on above: Performed By: #### FT3, CMP, LIPID, TSH #### [facility] [address] [place] [address] Dr. Gin ChewPROToshia CHEM 8 (BAS METB)on 72-43-5298Oiudr gap [Moles/Vol]9.4 mmol/LNormalThe [facility] HospitalComment on above:Performed By: #### FT3, CMP, LIPID, TSH #### [facility] [address] [address] [address] Gin ChewCalcium [Mass/Vol]9.1 mg/dLNormal8.5-10.1The [facility] Comment on above:Performed By: #### FT3, CMP, LIPID, TSH #### [facility] [address] [place] [address] Dr. Gin ChewChloride [Moles/Vol]104 mmol/WFhafrm99-407Ltt [facility] Comment on above:Performed By: #### FT3, CMP, LIPID, TSH #### [facility] [address] [place] [address] Dr. Gin ChewCO2 [Moles/Vol]31.7 mmol/EXcwovs30.0-32.0The [facility] Comment on above:Performed By: #### FT3, CMP, LIPID, TSH #### [facility] [address] [place] [address] Dr. Gin ChewCreatinine [Mass/Vol]0.77 mg/dLNormal0.55-1.02The [facility] HospitalComment on above:Performed By: #### FT3, CMP, LIPID, TSH #### [facility] [address] [place] [address] Dr. Gin ReganGFR-AF SENEGALESE>60Normal>=60The [facility] HospitalComment on above:Performed By: #### FT3, CMP, LIPID, TSH #### [facility] [address] [place] [address] Dr. Gin ReganGFR-NON AF SENEGALESE>60Normal>=60The [facility] HospitalComment on above:Performed By: #### FT3, CMP, LIPID, TSH #### [facility] [address] [place] [address] Dr. Gin ChewGlucose [Mass/Vol]143 mg/dLCritically zscv12-212Bca [facility] HospitalComment on above:Performed By: #### FT3, CMP, LIPID, TSH #### [facility] [address] [place] [address] Dr. Gin ChewPotassium [Moles/Vol]4.1 mmol/LNormal3.5-5.1[facility] Comment on above:Performed By: #### FT3, CMP, LIPID, TSH #### [facility] [address] [address] [address] Gin ChewSodium [Moles/Vol]141 mmol/NFaodfj790-531Oey [facility] Comment on above:Performed By: #### FT3, CMP, LIPID, TSH #### [facility] [address] [address] [address] Gin ChewUrea nitrogen [Mass/Vol]19.0 mg/dLCritically high7.0-18.0The [facility] HospitalComment on above:Performed By: #### FT3, CMP, LIPID, TSH #### [facility] [address] [address] [address] Gin Bennett nitrogen/Creatinine [Mass ratio]24.7 mg/mgNoMetroHealth Parma Medical CenterComment on above:Performed By: #### FT3, CMP, LIPID, TSH #### [facility] [address] [place] [address] Dr. Gin ChewXR CHEST 2 Von 26-40-5609XE CHEST 2 VEXAM: XR CHEST 2 V [...] Electronically authenticated by: DURGA DENNIS Date: 2022-09-08 15:53[facility] W MANUAL DIFFon 21-61-9893OPSOAALMNKVN2+NormalThe [facility] HospitalComment on above:Performed By: #### CBCMAN #### [facility] [address] [address] [address] Gin Mendez LYMPH #NormalThe [facility] HospitalComment on above: Performed By: #### VICKIE #### [facility] [address] [address] [address] Gin BatresICAL LYMPH %NormalThe [facility] HospitalComment on above: Performed By: #### VICKIE #### [facility] [address] [address] [address] Gin Cameron #0.6 103/ulCritically high0.0-0.3The [facility] on above:Performed By: #### VICKIE #### [facility] [address] [address] [address] Gin Cameron %4 %Normal0-5The [facility] HospitalComment on above:Performed By: #### VICKIE #### [facility] [address] [place] [address] Dr. Gin Persaud #0.00 103/ulNormal0.00-0.10The [facility] HospitalComment on above:Performed By: #### VICKIE #### [facility] [address] [address] [address] Gin Persaud %0.0 %Critically low0.2-2.0The [facility] HospitalComment on above:Performed By: #### VICKIE #### [facility] [address] [address] [address] Gin Carl #NormalThe [facility] HospitalComment on above:Performed By: #### VICKIE #### [facility] [address] [place] [address] Dr. Gin Carl %NormalThe [facility] HospitalComment on above:Performed By: #### VICKIE #### [facility] [address] [place] [address] Dr. Gin ChewCORRECTED WBCNormal4.0-11.0The [facility] HospitalComment on above: Performed By: #### CBCDORIS #### [facility] [address] [place] [address] Dr. Gin Martinez #0.45 103/ulNormal0.00-0.70The [facility] HospitalComment on above:Performed By: #### VICKIE #### [facility] [address] [place] [address] Dr. Gin Martinez%3.0 %Normal0.9-7.0The [facility] HospitalComment on above: Performed By: #### VICKIE #### [facility] [address] [place] [address] Dr. Gin BurnettT43.1 %Towrds63.0-48.0The [facility] HospitalComment on above: Performed By: #### VICKIE #### [facility] [address] [place] [address] Dr. Gin ChewHGB14.4 g/xrKjbpqd43.0-16.0The [facility] HospitalComment on above: Performed By: #### VICKIE #### [facility] [address] [place] [address] Dr. Gin Prieto #3.93 103/ulCritically high1.20-3.80The [facility] Comment on above:Performed By: #### VICKIE #### [facility] [address] [place] [address] Dr. Gin Prieto%26.0 %Dwytni06.5-60.0The [facility] HospitalComment on above:Performed By: #### VICKIE #### [facility] [address] [place] [address] Dr. Gin ChewMCH31.0 zqDwuxbj52.7-34.0The [facility] HospitalComment on above: Performed By: #### VICKIE #### [facility] [address] [place] [address] Dr. Gin LoveHC33.4 g/ohBnggqr72.9-35.2The [facility] HospitalComment on above:Performed By: #### VICKIE #### [facility] [address] [place] [address] Dr. Gin LoveV92.7 aAXmqdhj80.0-99.0[facility] Institutement on above: Performed By: #### VICKIE #### [facility] [address] [address] [address] Gin BlanchardOCYTE #NormalJoint Township District Memorial HospitalComment on above: Performed By: #### VICKIE #### [facility] [address] [address] [address] Gin BlanchardOCYTE %NormalJoint Township District Memorial HospitalComment on above: Performed By: #### VICKIE #### [facility] [address] [address] [address] Gin Oconnell#1.06 103/ulCritically high0.30-0.80The [facility] on above:Performed By: #### VICKIE #### [facility] [address] [place] [address] Dr. Gin Oconnell%7.0 %Normal1.7-12.0The [facility] HospitalComment on above: Performed By: #### VICKIE #### [facility] [address] [place] [address] Dr. Gin ChewMPV9.7 fLNormal9.5-13.5The [facility] HospitalComgarden city hospital on above: Performed By: #### VICKIE #### [facility] [address] [place] [address] Dr. Gin Saleem #NormalJoint Township District Memorial HospitalComment on above:Performed By: #### VICKIE #### [facility] [address] [place] [address] Dr. Gin Saleem %NormalJoint Township District Memorial HospitalComgarden city hospital on above:Performed By: #### VICKIE #### [facility] [address] [place] [address] Dr. Gin ChewNRQUINNormalThShelby Memorial HospitalComgarden city hospital on above:Performed By: #### VICKIE #### [facility] [address] [place] [address] Dr. Gin ChewPLT372 103/ojFihigh186-685Nzt [facility] HospitalComment on above: Performed By: #### CBCMAN #### [facility] [address] [address] [address] Gin ChewRBC4.65 106/ulNormal4.20-5.40The [facility] HospitalComment on above:Performed By: #### CBCMAN #### [facility] [address] [address] [address] Gin ChewRDW13.0 %Clkzpk91.0-15.0The [facility] HospitalComment on above: Performed By: #### CBCMAN #### [facility] [address] [address] [address] Gin Redding #9.06 103/ulCritically high1.40-6.50The [facility] Comment on above:Performed By: #### CBCMAN #### [facility] [address] [place] [address] Dr. Gin Redding %60.0 %Uwrznr31.0-75.0The [facility] HospitalComment on above: Performed By: #### CBCMAN #### [facility] [address] [place] [address] Dr. Gin ChewWBC15.1 103/ulCritically high4.0-11.0The [facility] HospitalComment on above:Performed By: #### CBCMAN #### [facility] [address] [place] [address] Dr. Gin ChewLACTATE/LACTIC ACIDon 72-56-6779Bjblehv [Moles/Vol]1.2 mmol/L Normal0.4-2.0The [facility] HospitalComment on above:Performed By: #### BMP #### [facility] [address] [place] [address] Dr. Gin ChewPROF CHEM 8 (BAS METB)on 33-81-1959Txgew gap [Moles/Vol]11.4 mmol/LNormalThe [facility] HospitalComment on above:Performed By: #### A1C #### [facility] [address] [place] [address] Dr. Gin ChewCalcium [Mass/Vol]9.2 mg/dLNormal8.5-10.1[facility] Comment on above:Performed By: #### A1C #### [facility] [address] [address] [address] Gin ChewChloride [Moles/Vol]102 mmol/LJhfouc39-293Boi [facility] Comment on above:Performed By: #### A1C #### [facility] [address] [address] [address] Gin ChewCO2 [Moles/Vol]31.3 mmol/ZRksgwz61.0-32.0The [facility] Comment on above:Performed By: #### A1C #### [facility] [address] [place] [address] Dr. Gin ChewCreatinine [Mass/Vol]0.86 mg/dLNormal0.55-1.02[facility] HospitalComment on above:Performed By: #### A1C #### [facility] [address] [place] [address] Dr. Gin ReganGFR-AF SENEGALESE>60Normal>=60The [facility] HospitalComment on above:Performed By: #### A1C #### [facility] [address] [place] [address] Dr. Gin ReganGFR-NON AF SENEGALESE>60Normal>=60The [facility] HospitalComment on above:Performed By: #### A1C #### [facility] [address] [address] [address] Gin ChewGlucose [Mass/Vol]119 mg/dLCritically itkj84-849Uuk [facility] HospitalComment on above:Performed By: #### A1C #### [facility] [address] [address] [address] Gin ChewPotassium [Moles/Vol]3.7 mmol/LNormal3.5-5.1[facility] Comment on above:Performed By: #### A1C #### [facility] [address] [place] [address] Dr. Gin ChewSodium [Moles/Vol]141 mmol/TLbztik201-636Nzr [facility] Comment on above:Performed By: #### A1C #### [facility] [address] [place] [address] Dr. Gin Bennett nitrogen [Mass/Vol]17.0 mg/dLNormal7.0-18.0The [facility] HospitalComment on above:Performed By: #### A1C #### [facility] [address] [place] [address] Dr. Gin ChewUrea nitrogen/Creatinine [Mass ratio]19.8 mg/mgNormalThe [facility] HospitalComment on above:Performed By: #### A1C #### [facility] [address] [place] [address] Dr. Gin Cruz RATE WESTERGRENon 03-50-9066VMD RATE8 mm/hrNormal<=30The [facility] HospitalComment on above:Performed By: #### A1C #### [facility] [address] [place] [address] Dr. Gin Salter AUTO DIFFon 70-39-9473ERYS #0.1 103/ulNormal0.0-0.1The [facility] HospitalComment on above:Performed By: #### BMP #### [facility] [address] [place] [address] Dr. Gin ChewBasophils/100 WBC (Bld)0.7 %Normal0.2-2.0[facility] Comment on above:Performed By: #### BMP #### [facility] [address] [place] [address] Dr. Gin Carlton #0.3 103/ulNormal0.0-0.7The [facility] HospitalComment on above: Performed By: #### BMP #### [facility] [address] [place] [address] Dr. Gin Reganosinophils/100 WBC (Bld)1.9 %Normal0.9-7.0The [facility] Comment on above:Performed By: #### BMP #### [facility] [address] [place] [address] Dr. Yilan ChangErythrocyte distribution width (RBC) [Ratio]12.9 %Dpocmx17.0-15.0 The [facility] HospitalComment on above:Performed By: #### BMP #### [facility] [address] [place] [address] Dr. Gin ChewHematocrit (Bld) [Volume fraction]42.9 %Xodvus38.0-48.0The [facility] HospitalComment on above:Performed By: #### BMP #### [facility] [address] [place] [address] Dr. Gin ChewHemoglobin (Bld) [Mass/Vol]14.3 g/sKZoncne13.0-16.0The [facility] HospitalComment on above:Performed By: #### BMP #### [facility] [address] [place] [address] Dr. Gin Harris #0.41 10e3/ulCritically high0.00-0.03The [facility] Comment on above:Performed By: #### BMP #### [facility] [address] [place] [address] Dr. Gin Harris %2.5 %Critically high0.0-0.5The [facility] HospitalComment on above:Performed By: #### BMP #### [facility] [address] [place] [address] Dr. Gin Girard #3.5 103/ulNormal1.2-3.8The [facility] HospitalComment on above:Performed By: #### BMP #### [facility] [address] [place] [address] Dr. Gin Whitakerhocytes/100 WBC (Bld)21.5 %Dhjxes86.5-60.0The [facility] HospitalComment on above:Performed By: #### BMP #### [facility] [address] [place] [address] Dr. Gin JangUAL DIFF REQNONormalThe [facility] HospitalComment on above: Performed By: #### BMP #### [facility] [address] [place] [address] Dr. Gin Lanier (RBC) [Entitic mass]30.9 roHqcgkh32.7-34.0The [facility] HospitalComment on above:Performed By: #### BMP #### [facility] [address] [place] [address] Dr. Gin Love (RBC) [Mass/Vol]33.3 g/zJSprsqg78.9-35.2The [facility] HospitalComment on above:Performed By: #### BMP #### [facility] [address] [place] [address] Dr. Gin Love (RBC) [Entitic vol]92.7 wRPlveks45.0-99.0The [facility] HospitalComment on above:Performed By: #### BMP #### [facility] [address] [place] [address] Dr. Gin Reyes #1.0 103/ulCritically high0.3-0.8The [facility] Comment on above:Performed By: #### BMP #### [facility] [address] [place] [address] Dr. Gin Mathiasocytes/100 WBC (Bld)6.2 %Normal1.7-12.0[facility] Comment on above:Performed By: #### BMP #### [facility] [address] [place] [address] Dr. Gin Romero #10.9 103/ulCritically high1.4-6.5The [facility] Comment on above:Performed By: #### BMP #### [facility] [address] [place] [address] Dr. Gin Boutrophils/100 WBC (Bld)67.2 %Zvjzsh07.0-75.0The [facility] HospitalComment on above:Performed By: #### BMP #### [facility] [address] [place] [address] Dr. Gin Gamble mean volume (Bld) [Entitic vol]9.7 fLNormal9.5-13.5The [facility] HospitalComment on above:Performed By: #### BMP #### [facility] [address] [address] [address] Gin ChewPLT424 103/llSdzued773-890Oqt [facility] HospitalComment on above: Performed By: #### BMP #### [facility] [address] [place] [address] Dr. Gin ChewRBC4.63 106/ulNormal4.20-5.40The [facility] HospitalComment on above:Performed By: #### BMP #### [facility] [address] [address] [address] Gin ChewWBC16.2 103/ulCritically high4.0-11.0The [facility] HospitalComgarden city hospital on above:Performed By: #### BMP #### [facility] [address] [place] [address] Dr. Gin ChewCT HEAD WO CONon [id number] HEAD WO CONHEAD CT WITHOUT CONTRAST, 08/17/2022 [...] Electronically authenticated by: Lloyd SANDRA Date: 2022-08-17 18:16[facility]on [id number]-CoV-2 (COVID-19) RNA ARIADNA+probe Ql (Unsp spec)Not detectedNormalNOT DETECTEDThe [facility] Comment on above:Result Comment: This test is not yet approved or cleared by the [place] FDA. When there are no FDA-approved or cleared tests available, and other criteria are met, FDA can make tests available under an emergency access mechanism called an Emergency Use Authorization (EUA). The EUA for this test is supported by the Flagger of Health and Human Service's (HHS's) declaration [...] consistent with SARS-CoV-2.Performed By: #### A1C #### [facility] [address] [place] [address] Dr. Gin ChewPROF CHEM 8 (BAS METB)on 50-99-0984Auhfk gap [Moles/Vol]13.8 mmol/LNormalJoint Township District Memorial HospitalComment on above:Performed By: #### BMP #### [facility] [address] [place] [address] Dr. Gin ChewCalcium [Mass/Vol]9.0 mg/dLNormal8.5-10.1[facility] Comment on above:Performed By: #### BMP #### [facility] [address] [place] [address] Dr. Gin ChewChloride [Moles/Vol]102 mmol/CRhhorr06-873Xeh [facility] Comment on above:Performed By: #### BMP #### [facility] [address] [place] [address] Dr. Gin ChewCO2 [Moles/Vol]28.4 mmol/XHdupie30.0-32.0The [facility] Comment on above:Performed By: #### BMP #### [facility] [address] [address] [address] Gin ChewCreatinine [Mass/Vol]0.93 mg/dLNormal0.55-1.02The [facility] HospitalComment on above:Performed By: #### BMP #### [facility] [address] [address] [address] Gin ReganGFR-AF SENEGALESE>60Normal>=60The [facility] HospitalComment on above:Performed By: #### BMP #### [facility] [address] [address] [address] Gin ReganGFR-NON AF SENEGALESE>60Normal>=60The [facility] HospitalComment on above:Performed By: #### BMP #### [facility] [address] [address] [address] Gin ChewGlucose [Mass/Vol]133 mg/dLCritically byif11-869Qxy [facility] HospitalComment on above:Performed By: #### BMP #### [facility] [address] [address] [address] Gin ChewPotassium [Moles/Vol]4.2 mmol/LNormal3.5-5.1[facility] Comment on above:Performed By: #### BMP #### [facility] [address] [address] [address] Gin ChewSodium [Moles/Vol]140 mmol/ALxhtqy780-497Fmu [facility] Comment on above:Performed By: #### BMP #### [facility] [address] [address] [address] Gin ChewUrea nitrogen [Mass/Vol]20.0 mg/dLCritically high7.0-18.0The [facility] HospitalComment on above:Performed By: #### BMP #### [facility] [address] [address] [address] Gin ChewUrea nitrogen/Creatinine [Mass ratio]21.5 mg/mgNormalThe [facility] HospitalComment on above:Performed By: #### BMP #### [facility] [address] [place] [address] Dr. Gin GrimesMATIC COVID-19 ANTIGENon [id number] StatementSEE BELOW NormalThe [facility] HospitalComment on above:Result Comment: This test has [...] is revoked sooner.Performed By: #### A1C #### [facility] [address] [place] [address] Dr. Gin Posey-CoV-2 (COVID-19) RNA ARIADNA+probe Ql (Unsp spec)NegativeNormal NEGATIVEThe [facility] HospitalComment on above:Performed By: #### A1C #### [facility] [address] [place] [address] Dr. Gin Salter AUTO DIFFon [id number] #0.1 103/ulNormal0.0-0.1The [facility] HospitalComment on above:Performed By: #### BMP #### [facility] [address] [place] [address] Dr. Gin ChewBasophils/100 WBC (Bld)1.0 %Normal0.2-2.0The [facility] Comment on above:Performed By: #### BMP #### [facility] [address] [place] [address] Dr. Greenfield ChangEO #0.5 103/ulNormal0.0-0.7The [facility] HospitalComment on above: Performed By: #### BMP #### [facility] [address] [place] [address] Dr. Gin Reganosinophils/100 WBC (Bld)7.1 %Critically high0.9-7.0The [facility] HospitalComment on above:Performed By: #### BMP #### [facility] [address] [place] [address] Dr. Gin Reganrythrocyte distribution width (RBC) [Ratio]12.3 %Pdaoiz92.0-15.0 The [facility] HospitalComment on above:Performed By: #### BMP #### [facility] [address] [place] [address] Dr. Gin ChewHematocrit (Bld) [Volume fraction]39.6 %Pmdrqa01.0-48.0The [facility] HospitalComment on above:Performed By: #### BMP #### [facility] [address] [place] [address] Dr. Gin ChewHemoglobin (Bld) [Mass/Vol]13.5 g/nOVlwbzn73.0-16.0The [facility] HospitalComment on above:Performed By: #### BMP #### [facility] [address] [place] [address] Dr. Gin Harris #0.03 10e3/ulNormal0.00-0.03The [facility] HospitalComment on above:Performed By: #### BMP #### [facility] [address] [place] [address] Dr. Gin Harris %0.4 %Normal0.0-0.5The [facility] HospitalComment on above: Performed By: #### BMP #### [facility] [address] [place] [address] Dr. Gin WhitakerH #2.4 103/ulNormal1.2-3.8The [facility] HospitalComment on above:Performed By: #### BMP #### [facility] [address] [place] [address] Dr. Gin Mckeonmphocytes/100 WBC (Bld)33.7 %Uumair59.5-60.0The [facility] HospitalComment on above:Performed By: #### BMP #### [facility] [address] [place] [address] Dr. Gin Jones DIFF REQNONormalThe [facility] HospitalComment on above: Performed By: #### BMP #### [facility] [address] [place] [address] Dr. Gin Love (RBC) [Entitic mass]30.8 hwPhbyei10.7-34.0The [facility] HospitalComment on above:Performed By: #### BMP #### [facility] [address] [place] [address] Dr. Gin Love (RBC) [Mass/Vol]34.1 g/cMPjfjbm13.9-35.2The [facility] HospitalComment on above:Performed By: #### BMP #### [facility] [address] [place] [address] Dr. Gin Love (RBC) [Entitic vol]90.2 gACxthxs85.0-99.0The [facility] HospitalComment on above:Performed By: #### BMP #### [facility] [address] [place] [address] Dr. Gin Reyes #0.5 103/ulNormal0.3-0.8The [facility] HospitalComment on above:Performed By: #### BMP #### [facility] [address] [place] [address] Dr. Gin Mathiasocytes/100 WBC (Bld)6.7 %Normal1.7-12.0The [facility] Comment on above:Performed By: #### BMP #### [facility] [address] [place] [address] Dr. Gin Romero #3.6 103/ulNormal1.4-6.5The [facility] HospitalComment on above:Performed By: #### BMP #### [facility] [address] [place] [address] Dr. Gin Boutrophils/100 WBC (Bld)51.1 %Mhswoo80.0-75.0The [facility] HospitalComment on above:Performed By: #### BMP #### [facility] [address] [place] [address] Dr. Gin Gamble mean volume (Bld) [Entitic vol]9.6 fLNormal9.5-13.5The [facility] HospitalComment on above:Performed By: #### BMP #### [facility] [address] [place] [address] Dr. Gin ChewPLT337 103/kkEuyobd723-010Wug [facility] HospitalComment on above: Performed By: #### BMP #### [facility] [address] [place] [address] Dr. Gin ChewRBC4.39 106/ulNormal4.20-5.40The [facility] HospitalComment on above:Performed By: #### BMP #### [facility] [address] [place] [address] Dr. Gin ChewWBC7.0 103/ulNormal4.0-11.0The [facility] HospitalComment on above: Performed By: #### BMP #### [facility] [address] [place] [address] Dr. Gin Baldwin URINEon 48-24-4476OXOPEDZ URINECulture Observations: MODERATE GROWTH OF MIXED GENITAL ELOINA. NO POTENTIAL PATHOGENS SEEN.NormalThe [facility] HospitalComment on above:Performed By: #### A1C #### [facility] [address] [place] [address] Dr. Gin Crawford T3on 47-95-0425AJPT T32.10 pg/mlLCritically low2.18-3.98The [facility] HospitalComment on above:Performed By: #### FT3, CMP, LIPID, TSH #### [facility] [address] [place] [address] Dr. Gin Crawford T4on 21-99-6921Nnso T4 [Mass/Vol]1.56 ng/dLCritically high 0.76-1.46The [facility] HospitalComment on above:Performed By: #### FT4, VITAD #### [facility] [address] [address] [address] Gin ChewGLYCOHEMOGLOBIN A1Con [id number] RECOMMENDATIONSEE BELOWKettering Health – Soin Medical CenterComgarden city hospital on above:Result Comment: ADA RECOMMENDED LIMIT 4.0 - 6.0 ADA THERAPEUTIC TARGET < 7.0 ACTION SUGGESTED > 7.0Performed By: #### A1C #### [facility] [address] [address] [address] Gin ChewGlucose [Mass/Vol]134 mg/dLNoMetroHealth Parma Medical CenterComment on above:Performed By: #### A1C #### [facility] [address] [place] [address] Dr. Gin ChewHbA1c (Bld) [Mass fraction]6.3 %Critically high4.5-6.2[facility] HospitalComment on above:Performed By: #### A1C #### [facility] [address] [place] [address] Dr. Gin ChewLIPID PROFILEon [id number]-HDL RATIO NORMSEE [facility] AkronComgarden city hospital on above:Result Comment: 3.3 - 4.4 LOW RISK 4.4 - 7.1 AVERAGE RISK 7.1 - 11.0 MODERATE RISK >11.0 HIGH RISKPerformed By: #### FT3, CMP, LIPID, TSH #### [facility] [address] [place] [address] Dr. Gin ChewCholesterol [Mass/Vol]190 mg/dLNormal<=200The [facility] Comment on above:Performed By: #### FT3, CMP, LIPID, TSH #### [facility] [address] [address] [address] Gin ChewCholesterol in HDL [Mass/Vol]76 mg/dLCritically bgmi01-96Rfn [facility] HospitalComgarden city hospital on above:Performed By: #### FT3, CMP, LIPID, TSH #### [facility] [address] [place] [address] Dr. Gin ChewCholesterol in LDL [Mass/Vol]98.4 mg/dLThe [facility] HospitalComment on above:Performed By: #### FT3, CMP, LIPID, TSH #### [facility] [address] [place] [address] Dr. Gin ChewCholesterol.total/Cholesterol in HDL [Mass ratio]2.5 {ratio} NormalThe [facility] HospitalComment on above:Performed By: #### FT3, CMP, LIPID, TSH #### [facility] [address] [address] [address] Gin Mota NORMAL> or = 60 mg/dl - LOW CARDIOVASCULAR RISK <40 mg/dl - HIGH CARDIOVASCULAR RISKNoMetroHealth Parma Medical CenterComment on above:Performed By: #### FT3, CMP, LIPID, TSH #### [facility] [address] [place] [address] Dr. Gin ChewLDL CALC NORMALSEE BELOWNoMetroHealth Parma Medical CenterComment on above:Result Comment: <100 mg/dl OPTIMAL 100 - 129 mg/dl NEAR OR ABOVE OPTIMAL 130 - 159 mg/dl BORDERLINE HIGH 160 - 189 mg/dl HIGH >190 mg/dl VERY HIGH Performed By: #### FT3, CMP, LIPID, TSH #### [facility] [address] [place] [address] Dr. Gin ChewTriglyceride [Mass/Vol]78 mg/dLNormal<=150[facility] Comment on above:Performed By: #### FT3, CMP, LIPID, TSH #### [facility] [address] [place] [address] Dr. Gin ChewVLDL CALC15.6 mg/dLNoMetroHealth Parma Medical CenterComment on above: Performed By: #### FT3, CMP, LIPID, TSH #### [facility] [address] [place] [address] Dr. Gin MacedoALBUMIN, RAND URon 38-33-4324nGZF5.7 mg/LNormal<=30.0[facility] HospitalComment on above:Performed By: #### A1C #### [facility] [address] [place] [address] Dr. Gin Hitchcock 14(COMP METB)on 63-01-6414Gzypdnr [Mass/Vol]4.0 g/dLNormal 3.4-5.0The [facility] HospitalComment on above:Performed By: #### FT3, CMP, LIPID, TSH #### [facility] [address] [address] [address] Gin ChewAlbumin/Globulin [Mass ratio]1.2 {ratio}NormalThe [facility] HospitalComment on above:Performed By: #### FT3, CMP, LIPID, TSH #### [facility] [address] [address] [address] Gin Cm [Catalytic activity/Vol]67 U/DMakwdl69-848Bqn [facility] HospitalComment on above:Performed By: #### FT3, CMP, LIPID, TSH #### [facility] [address] [place] [address] Dr. Gin Vera [Catalytic activity/Vol]25 U/KDedmkn66-51Zem [facility] HospitalComment on above:Performed By: #### FT3, CMP, LIPID, TSH #### [facility] [address] [address] [address] Gin Hayes gap [Moles/Vol]12.2 mmol/LNormalThe [facility] Comment on above:Performed By: #### FT3, CMP, LIPID, TSH #### [facility] [address] [address] [address] Gin ChewAST [Catalytic activity/Vol]20 U/DZuxnba28-93Ldy [facility] Campusment on above:Performed By: #### FT3, CMP, LIPID, TSH #### [facility] [address] [address] [address] Gin ChewBilirubin [Mass/Vol]0.4 mg/dLNormal0.2-1.0The [facility] Comment on above:Performed By: #### FT3, CMP, LIPID, TSH #### [facility] [address] [address] [address] Gin CehwCalcium [Mass/Vol]9.6 mg/dLNormal8.5-10.1The [facility] Comment on above:Performed By: #### FT3, CMP, LIPID, TSH #### [facility] [address] [address] [address] Gin ChewChloride [Moles/Vol]103 mmol/POfyvyr45-986Qvl [facility] Comment on above:Performed By: #### FT3, CMP, LIPID, TSH #### [facility] [address] [address] [address] Gin ChewCO2 [Moles/Vol]28.1 mmol/WEjcfzs34.0-32.0The [facility] Comment on above:Performed By: #### FT3, CMP, LIPID, TSH #### [facility] [address] [place] [address] Dr. Gin ChewCreatinine [Mass/Vol]0.64 mg/dLNormal0.55-1.02The [facility] HospitalComment on above:Performed By: #### FT3, CMP, LIPID, TSH #### [facility] [address] [place] [address] Dr. Gin ReganGFR-AF SENEGALESE>60Normal>=60The [facility] HospitalComment on above:Performed By: #### FT3, CMP, LIPID, TSH #### [facility] [address] [place] [address] Dr. Gin ReganGFR-NON AF SENEGALESE>60Normal>=60The [facility] HospitalComment on above:Performed By: #### FT3, CMP, LIPID, TSH #### [facility] [address] [place] [address] Dr. Gin ChewGlobulin (S) [Mass/Vol]3.3 g/dLNormalThe [facility] HospitalComment on above:Performed By: #### FT3, CMP, LIPID, TSH #### [facility] [address] [address] [address] Gin ChewGlucose [Mass/Vol]98 mg/cPIzjbdm87-815Gdb [facility] Comment on above:Performed By: #### FT3, CMP, LIPID, TSH #### [facility] [address] [place] [address] Dr. Gin ChewPotassium [Moles/Vol]4.3 mmol/LNormal3.5-5.1The [facility] Comment on above:Performed By: #### FT3, CMP, LIPID, TSH #### [facility] [address] [place] [address] Dr. Gin ChewProtein [Mass/Vol]7.3 g/dLNormal6.4-8.2The [facility] Comment on above:Performed By: #### FT3, CMP, LIPID, TSH #### [facility] [address] [place] [address] Dr. Gin ChewSodium [Moles/Vol]139 mmol/LWahhmm488-227Sai [facility] Comment on above:Performed By: #### FT3, CMP, LIPID, TSH #### [facility] [address] [place] [address] Dr. Gin Bennett nitrogen [Mass/Vol]21.0 mg/dLCritically high7.0-18.0The [facility] HospitalComment on above:Performed By: #### FT3, CMP, LIPID, TSH #### [facility] [address] [place] [address] Dr. Gin Bennett nitrogen/Creatinine [Mass ratio]32.8 mg/mgNormalThe [facility] HospitalComment on above:Performed By: #### FT3, CMP, LIPID, TSH #### [facility] [address] [place] [address] Dr. Gin Shields 02-89-9979HIY3.200 uIU/mLNormal0.358-3.740[facility] HospitalComment on above:Performed By: #### FT3, CMP, LIPID, TSH #### [facility] [address] [place] [address] Dr. Gin Westbrook RANDOM W/MICROSCOPICon 81-77-2221VRHCVEJTGECU SEENNormalNONE SEENThe [facility] HospitalComment on above:Performed By: #### FT3, CMP, LIPID, TSH #### [facility] [address] [address] [address] Gin ChewBilirubin Ql (U)NegativeNormalNEGATIVEJoint [facility] Hospital Comment on above:Performed By: #### FT3, CMP, LIPID, TSH #### [facility] [address] [address] [address] Gin ChewCASTNONE SEENNormalNONE SEENJoint [facility] District Memorial HospitalComment on above:Performed By: #### FT3, CMP, LIPID, TSH #### [facility] [address] [address] [address] Gin ChewClarity (U)CLEARNormalCLEARJoint [facility] District Memorial HospitalComment on above: Performed By: #### FT3, CMP, LIPID, TSH #### [facility] [address] [address] [address] Gin ChewColor (U)LT. YELLOWNormalYELLOWJoint [facility] District Memorial HospitalComment on above:Performed By: #### FT3, CMP, LIPID, TSH #### [facility] [address] [address] [address] Gin ChewCrystals LM Nom (Urine sed)NONE SEENNormalNONE SEENJoint [facility] District Memorial HospitalComment on above:Performed By: #### FT3, CMP, LIPID, TSH #### [facility] [address] [address] [address] Greenfield ChangEpithelial cells LM Ql (Urine sed)FEWAbnormalNONE SEEN /RAREThe [facility] HospitalComgarden city hospital on above:Performed By: #### FT3, CMP, LIPID, TSH #### [facility] [address] [address] [address] Gin ChewGlucose Ql (U)NegativeNormalNEGATIVEJoint [facility] Memorial HospitalComment on above:Performed By: #### FT3, CMP, LIPID, TSH #### [facility] [address] [address] [address] Gin ChewHemoglobin Ql (U)NegativeNormalNEGATIVEJoint [facility] Hospital Comment on above:Performed By: #### FT3, CMP, LIPID, TSH #### [facility] [address] [address] [address] Gin Munguia Ql (U)NegativeNormalNEGATIVEThe [facility] HospitalComment on above:Performed By: #### FT3, CMP, LIPID, TSH #### [facility] [address] [address] [address] Gin ChewLEUKOCYTESNegativeNormalNEGATIVEThe [facility] HospitalComment on above:Performed By: #### FT3, CMP, LIPID, TSH #### [facility] [address] [address] [address] Gin Whitten SEENNormalNONE SEENJoint [facility] District Memorial HospitalComment on above:Performed By: #### FT3, CMP, LIPID, TSH #### [facility] [address] [address] [address] Gin Muniz Ql (U)NegativeNormalNEGATIVEThe [facility] HospitalComment on above:Performed By: #### FT3, CMP, LIPID, TSH #### [facility] [address] [address] [address] Gin ChewpH (U)5.5 [pH]Normal5-9The [facility] HospitalComment on above: Performed By: #### FT3, CMP, LIPID, TSH #### [facility] [address] [address] [address] Gin Blakely SEENAbnormal0-2The [facility] HospitalComment on above: Performed By: #### FT3, CMP, LIPID, TSH #### [facility] [address] [address] [address] Gin ChewSPEC GRAVITY1.180Warsim6.005-<=1.025The [facility] HospitalComment on above:Performed By: #### FT3, CMP, LIPID, TSH #### [facility] [address] [address] [address] Gin ChewUA PROTEINNegativeNormalNEGATIVE/ TRACEThe [facility] Comment on above:Performed By: #### FT3, CMP, LIPID, TSH #### [facility] [address] [place] [address] Dr. Gin Avila Qn (U)0.2 {David'U}/dLNormal0.2 - 1.0The [facility] Campusment on above:Performed By: #### FT3, CMP, LIPID, TSH #### [facility] [address] [place] [address] Dr. Gin Donovan SEENrmalNONE SEENThe Ohio[facility] Grady Memorial HospitalComment on above: Performed By: #### FT3, CMP, LIPID, TSH #### [facility] [address] [place] [address] Dr. Gin ChewVITAMIN D 25 OHon [id number] D 25-OH30.1 ng/mLNormalThe [facility]ady Memorial HospitalComment on above:Performed By: #### FT4, VITAD #### [facility] [address] [place] [address] Dr. Gin DARDENSEE [facility] Hospital - AkronComment on above: Result Comment: <20 ng/mL Vit D deficient 20 - <30 ng/mL Vit D insufficient 30 - 100 ng/mL Vit D sufficient >100 ng/mL Potential ToxicityPerformed By: #### FT4, VITAD #### [facility] [address] [place] [address] Dr. Gin Crawford T3on [id number] T32.83 pg/mlLNormal2.18-3.98The [facility] HospitalComment on above:Performed By: #### BMP #### [facility] [address] [place] [address] Dr. Gin Crawford T4on [id number] T4 [Mass/Vol]1.74 ng/dLCritically high 0.76-1.46The [facility] HospitalComgarden city hospital on above:Performed By: #### FT4 #### [facility] [address] [place] [address] Dr. Gin Shields [id number] uIU/mLCritically low0.358-3.740The [facility] HospitalComment on above:Performed By: #### BMP #### [facility] [address] [place] [address] Dr. Gin ChewXR CHEST 2 Von [id number] CHEST 2 VEXAMINATION: XR CHEST 2 V [...] Electronically authenticated by: JEFF PATHAK Date: 2021-11-29 21:03The [facility] HospitalCNPNon [id number] (ENDOSO) CANELO PATHAK ([id number]) 1965 F Date Time Provider Department 10/13/21 [...] Date Reviewed: 10/13/2021 Reviewed by: Anila Jimenez APRN.OPTOMETRIC COORDINATOR - Fully Assessed Reason for Visit: Appointment [...] daily. - mometasone furoate(NASONEX 50 MCG/ACTUATION SPRAY) Combs twice in each nostril once daily. - [...] wi*10/11/2021 Encounter Status:Closed by ANILA JIMENEZ on 10/13/21[facility] W Auto Differential panel (Bld)on [id number] (Bld) [#/Vol] 0.07 10*3/uLNormal<0.11[facility] on above:Order Comment: Specimen Type: BLOOD SPECIMENOrdering Facility: [facility] Address:[address] [place], [place] [address]Performed By: #### CMP, HBA1C, FREET3, FT4, TSH #### [place] [address] Alyouwjkw/100 WBC (Bld)0.7 %[facility] on above:Order Comment: Specimen Type: BLOOD SPECIMENOrdering Facility: [facility] Address:[address] [place] [address] Performed By: #### CMP, HBA1C, FREET3, FT4, TSH #### [place] [address] Qgedmwlslhza cell count method Nom (Bld)AutoNormalCHocking Valley Community Hospital on above:Order Comment: Specimen Type: BLOOD SPECIMENOrdering Facility: [facility] Address:[address] [place], [place] [address]Performed By: #### CMP, HBA1C, FREET3, FT4, TSH #### [place] [address] Wetcsniqqre (Bld) [#/Vol]0.29 10*3/uLNormal<0.46[facility] on above:Order Comment: Specimen Type: BLOOD SPECIMENOrdering Facility: [facility] Address:[address] [place], [place] [address]Performed By: #### CMP, HBA1C, FREET3, FT4, TSH #### [place] [address] Ekbhjwnxdoi/100 WBC (Bld)3.0 %[facility] Comment on above:Order Comment: Specimen Type: BLOOD SPECIMENOrdering Facility: [facility] Address:[address] [place] [address] Performed By: #### CMP, HBA1C, FREET3, FT4, TSH #### [place] [address] Dbevppftgqq distribution width (RBC) [Ratio]12.3 %Cvunzi82.5-15.0 [facility] on above:Order Comment: Specimen Type: BLOOD SPECIMENOrdering Facility: [facility] Address:[address] [place], [place] [address]Performed By: #### CMP, HBA1C, FREET3, FT4, TSH #### [place] [address] Rmkovnapxb (Bld) [Volume fraction]43.4 %Vymfpp30.0-46.0[facility] on above:Order Comment: Specimen Type: BLOOD SPECIMENOrdering Facility: [facility] Address:[address] [place], [place] [address]Performed By: #### CMP, HBA1C, FREET3, FT4, TSH #### [place] [address] Afvjbsyegi (Bld) [Mass/Vol]14.5 g/iOOrzsee35.5-15.5[facility] on above:Order Comment: Specimen Type: BLOOD SPECIMENOrdering Facility: [facility] Address:[address] [place], [place] [address]Performed By: #### CMP, HBA1C, FREET3, FT4, TSH #### [place] [address] URFGYYDV GRAN %0.4 %NormalParkview Health Montpelier Hospital on above:Order Comment: Specimen Type: BLOOD SPECIMENOrdering Facility: [facility] Address:[address] [place], [place] [address]Performed By: #### CMP, HBA1C, FREET3, FT4, TSH #### [place] [address] JNBLNDOJ GRAN ABS0.04 k/uLNormal<0.10[facility] Comment on above:Order Comment: Specimen Type: BLOOD SPECIMENOrdering Facility: [facility] Address:[address] [place] [address] Performed By: #### CMP, HBA1C, FREET3, FT4, TSH #### [place] [address] Kgaeznbbvjb (Bld) [#/Vol]2.21 10*3/uLNormal1.00-4.00[facility] on above:Order Comment: Specimen Type: BLOOD SPECIMENOrdering Facility: [facility] Address:[address] [place], [place] [address]Performed By: #### CMP, HBA1C, FREET3, FT4, TSH #### [place] [address] Ciliskbivgv/100 WBC (Bld)22.6 %NormalCincinnati Va Medical Center Comment on above:Order Comment: Specimen Type: BLOOD SPECIMENOrdering Facility: [facility] Address:[address] [place] [address] Performed By: #### CMP, HBA1C, FREET3, FT4, TSH #### [place] [phone] (RBC) [Entitic mass]30.7 mqWcgakx79.0-34.0[facility] on above:Order Comment: Specimen Type: BLOOD SPECIMENOrdering Facility: [facility] Address:[address] [place], [place] [address]Performed By: #### CMP, HBA1C, FREET3, FT4, TSH #### [place] [phone] (RBC) [Mass/Vol]33.4 g/jUFkxizm10.5-36.0[facility] on above:Order Comment: Specimen Type: BLOOD SPECIMENOrdering Facility: [facility] Address:[address] [place], [place] [address]Performed By: #### CMP, HBA1C, FREET3, FT4, TSH #### [place] [phone] (RBC) [Entitic vol]91.9 hNWduquq49.0-100.0[facility] on above:Order Comment: Specimen Type: BLOOD SPECIMENOrdering Facility: [facility] Address:[address] [place], [place] [address]Performed By: #### CMP, HBA1C, FREET3, FT4, TSH #### [place] [phone] (Bld) [#/Vol]0.60 10*3/uLNormal<0.87[facility] on above:Order Comment: Specimen Type: BLOOD SPECIMENOrdering Facility: [facility] Address:[address] [place], [place] [address]Performed By: #### CMP, HBA1C, FREET3, FT4, TSH #### [place] [phone]/100 WBC (Bld)6.1 %NormalParkview Health Montpelier Hospital on above:Order Comment: Specimen Type: BLOOD SPECIMENOrdering Facility: [facility] Address:[address] [place], [place] [address] Performed By: #### CMP, HBA1C, FREET3, FT4, TSH #### [place] [phone] (Bld) [#/Vol]6.57 10*3/uLNormal1.45-7.50[facility] on above:Order Comment: Specimen Type: BLOOD SPECIMENOrdering Facility: [facility] Address:[address] [place], [place] [address]Performed By: #### CMP, HBA1C, FREET3, FT4, TSH #### [place] [address] Fsjaosckkcq/100 WBC (Bld)67.2 %NormalCincinnati Va Medical Center Comment on above:Order Comment: Specimen Type: BLOOD SPECIMENOrdering Facility: [facility] Address:[address] [place] [address] Performed By: #### CMP, HBA1C, FREET3, FT4, TSH #### [place] [address] Xhdhtbsbv RBC (Bld) [#/Vol]10*3/uLNormal<0.01[facility] on above:Order Comment: Specimen Type: BLOOD SPECIMENOrdering Facility: [facility] Address:[address] [place], [place] [address]Performed By: #### CMP, HBA1C, FREET3, FT4, TSH #### [place] [address] Srwgkzplk RBC/100 WBC (Bld) [Ratio]0.0 /100 WBCNormalCMercy Health Perrysburg Hospitalment on above:Order Comment: Specimen Type: BLOOD SPECIMENOrdering Facility: [facility] Address:[address] [place], [place] [address]Performed By: #### CMP, HBA1C, FREET3, FT4, TSH #### [place] [address] Ioqslqmg mean volume (Bld) [Entitic vol]10.4 fLNormal9.0-12.7 [facility] on above:Order Comment: Specimen Type: BLOOD SPECIMENOrdering Facility: [facility] Address:[address] [place], [place] [address]Performed By: #### CMP, HBA1C, FREET3, FT4, TSH #### [place] [address] Cahwacaaa (Bld) [#/Vol]371 10*3/fNBfmxjm133-721JzavimxyaParkview Health [facility] Hospital on above:Order Comment: Specimen Type: BLOOD SPECIMENOrdering Facility: [facility] Address:[address] [place], [place] [address]Performed By: #### CMP, HBA1C, FREET3, FT4, TSH #### [facility] [address] [place] [address] ZAY (Bld) [#/Vol]4.72 10*6/uLNormal3.90-5.20[facility] on above:Order Comment: Specimen Type: BLOOD SPECIMENOrdering Facility: [facility] Address:[address] [place], [place] [address]Performed By: #### CMP, HBA1C, FREET3, FT4, TSH #### [place] [address] HAS (Bld) [#/Vol]9.78 10*3/uLNormal3.70-11.00[facility] on above:Order Comment: Specimen Type: BLOOD SPECIMENOrdering Facility: [facility] Address:[address] [place], [place] [address]Performed By: #### CMP, HBA1C, FREET3, FT4, TSH #### [facility] [address] [place] [address] Vvd Immature Gran0.04 k/uL<0.10 k/uLPromedica Bay Park HospitalBasophils (Bld) [#/Vol]0.07 10*3/uL<0.11 k/uLMetairie ClinicBasophils/100 WBC (Bld)0.7 % [facility] HospitalDifferential cell count method Nom (Bld)AutoCFostoria City Hospital Eosinophils (Bld) [#/Vol]0.29 10*3/uL<0.46 k/uLPromedica Bay Park HospitalEosinophils/100 WBC (Bld)3.0 %[facility] HospitalErythrocyte distribution width (RBC) [Ratio]12.3 % 11.5 - 15.0 %[facility] HospitalHematocrit (Bld) [Volume fraction]43.4 %36.0 - 46.0 %[facility] HospitalHemoglobin (Bld) [Mass/Vol]14.5 g/dL11.5 - 15.5 g/dLPromedica Bay Park HospitalImmature Gran %0.4 %[facility] HospitalLymphocytes (Bld) [#/Vol]2.21 10*3/uL 1.00 - 4.00 k/uLPromedica Bay Park HospitalLymphocytes/100 WBC (Bld)22.6 %[facility] MCH (RBC) [Entitic mass]30.7 pg26.0 - 34.0 pgClevelRiverside Methodist HospitalMCHC (RBC) [Mass/Vol]33.4 g/dL30.5 - 36.0 g/dLPromedica Bay Park HospitalMCV (RBC) [Entitic vol]91.9 fL80.0 - 100.0 fLClevelRiverside Methodist HospitalMonocytes (Bld) [#/Vol]0.60 10*3/uL<0.87 k/uL [facility] HospitalMonocytes/100 WBC (Bld)6.1 %[facility] HospitalNeutrophils (Bld) [#/Vol]6.57 10*3/uL1.45 - 7.50 k/uLPromedica Bay Park HospitalNeutrophils/100 WBC (Bld)67.2 %[facility] HospitalNucleated RBC (Bld) [#/Vol]10*3/uL<0.01 k/uLPromedica Bay Park Hospital Nucleated RBC/100 WBC (Bld) [Ratio]0.0 /100 WBCPromedica Bay Park HospitalPlatelet mean volume (Bld) [Entitic vol]10.4 fL9.0 - 12.7 fLClevelformerly southeastern regional medical center ClinicPlatelets (Bld) [#/Vol]371 10*3/uL150 - 400 k/uLPromedica Bay Park HospitalRBC (Bld) [#/Vol]4.72 10*6/uL 3.90 - 5.20 m/uLPromedica Bay Park HospitalWBC (Bld) [#/Vol]9.78 10*3/uL3.70 - 11.00 k/uL [facility] HospitalCNOVon [id number] Visit (RHEUMN) CANELO PATHAK ([id number]) 1965 F Date Time Provider Department 10/07/21 [...] mcg (5,000 unit) cap - Vitamin D [place] ([employer]) Take 1 capsule by mouth daily with food. - montelukast (SINGULAIR) 10 mg tablet Take 10 mg by mouth daily at bedtime. - MULTIVIT-MINERALS/FERROUS GLUC (CENTRAM-CARE ORAL) Take by mouth twice daily. - esomeprazole mag trihydrate(NEXIUM 40 MG CAP) Take one(1) capsule daily. - mometasone furoate(NASONEX 50 MCG/ACTUATION SPRAY) Combs twice in each nostril once daily. - [...] [F41.1] Order(s):CBC + DIFF [SQCBCDIF] Order #: [id number] FUTURE PROTEIN ELECTROPHORESIS SERUM W/INTERP [SQSEPG] Order #: [id number] FUTURE venlafaxine ER (EFFEXOR XR) 37.5 mg 24 hr capsuletake one a day, if tolerated after two weeks increase to twoDisp: 60 capsuleRfl: 3 CO (more content not included)...NormalCincinnati Va Medical CenterComprehensive metabolic 2000 panelon 66-65-2679Yzoqcvj [Mass/Vol]4.8 g/dLNormal3.9-4.9 [facility] on above:Order Comment: Specimen Type: BLOOD SPECIMENOrdering Facility: [facility] Address:[address] [place], [place] [address]Performed By: #### CMP, HBA1C, FREET3, FT4, TSH #### [facility] [employer] [address] [place] [address] LQT [Catalytic activity/Vol]72 U/SOutlap89-933LqxucxkpdParkview Health [facility] Hospital on above:Order Comment: Specimen Type: BLOOD SPECIMENOrdering Facility: [facility] Address:[address] [place], [place] [address]Performed By: #### CMP, HBA1C, FREET3, FT4, TSH #### [facility] [employer] [address] [place] [address] QJD [Catalytic activity/Vol]24 U/LNormal7-38[facility] on above:Order Comment: Specimen Type: BLOOD SPECIMENOrdering Facility: [facility] Address:[address] [place], [place] [address]Performed By: #### CMP, HBA1C, FREET3, FT4, TSH #### [place] [address] Lpjfk gap [Moles/Vol]11 mmol/LNormal9-18[facility] Comment on above:Order Comment: Specimen Type: BLOOD SPECIMENOrdering Facility: [facility] Address:[address] [place] [address] Performed By: #### CMP, HBA1C, FREET3, FT4, TSH #### [place] [address] MPP [Catalytic activity/Vol]17 U/PBomqki41-56PkjvsuboxCincinnati Va Medical CenterComgarden city hospital on above:Order Comment: Specimen Type: BLOOD SPECIMENOrdering Facility: [facility] Address:[address] [place], [place] [address]Performed By: #### CMP, HBA1C, FREET3, FT4, TSH #### [place] [address] Gridlwewu [Mass/Vol]0.5 mg/dLNormal0.2-1.3CMercy Health [facility] Comment on above:Order Comment: Specimen Type: BLOOD SPECIMENOrdering Facility: [facility] Address:[address] [place] [address] Performed By: #### CMP, HBA1C, FREET3, FT4, TSH #### [place] [address] Whhokvf [Mass/Vol]10.3 mg/dLHigh8.5-10.2CMercy Health [facility] Hospital Comment on above:Order Comment: Specimen Type: BLOOD SPECIMENOrdering Facility: [facility] Address:[address] [place] [address] Performed By: #### CMP, HBA1C, FREET3, FT4, TSH #### [place] [address] Pkijtcem [Moles/Vol]100 mmol/GEmlvma80-742BnguusemuCincinnati Va Medical Center Comment on above:Order Comment: Specimen Type: BLOOD SPECIMENOrdering Facility: [facility] Address:[address] [place] [address] Performed By: #### CMP, HBA1C, FREET3, FT4, TSH #### [place] [address] EI9 [Moles/Vol]28 mmol/WPktspr14-97LnsnuyvghCincinnati Va Medical CenterComment on above:Order Comment: Specimen Type: BLOOD SPECIMENOrdering Facility: [facility] Address:[address] [place] [address] Performed By: #### CMP, HBA1C, FREET3, FT4, TSH #### [place] [address] Nxssbgyjjj [Mass/Vol]0.70 mg/dLNormal0.58-0.96[facility] CenterComment on above:Order Comment: Specimen Type: BLOOD SPECIMENOrdering Facility: [facility] Address:[address] [place], [place] [address]Performed By: #### CMP, HBA1C, FREET3, FT4, TSH #### [place] [address] IZWCZGICV GLOMERULAR FILTRATION IQCZ233 mL/min/1.73m???Normal>=60 [facility] on above:Order Comment: Specimen Type: BLOOD SPECIMENOrdering Facility: [facility] Address:[address] [place], [place] [address]Result Comment: Estimated Glomerular Filtration Rate (eGFR) is [...] #### CMP, HBA1C, FREET3, FT4, TSH #### [place] [address] [place] [address] Akecutp [Mass/Vol]124 mg/vHFeju82-32LhorvzqvcCincinnati Va Medical Center Comment on above:Order Comment: Specimen Type: BLOOD SPECIMENOrdering Facility: [facility] Address:[address] [place], [place] [address] Result Comment: The [place] [employer] Association (ADA) provides guidance for cutoff [...] Standards of Medical Care in Diabetes 2016, [place] [employer]. Diabetes Care. 2016.39(Suppl 1).Performed By: #### CMP, HBA1C, FREET3, FT4, TSH #### [place] [address] Xkailqnfb [Moles/Vol]4.1 mmol/LNormal3.7-5.1CMercy Health Kings Mills HospitalComment on above:Order Comment: Specimen Type: BLOOD SPECIMENOrdering Facility: [facility] Address:[address] [place] [id number] By: #### CMP, HBA1C, FREET3, FT4, TSH #### [place] [address] Ttwlouv [Mass/Vol]7.3 g/dLNormal6.3-8.0[facility] Comment on above:Order Comment: Specimen Type: BLOOD SPECIMENOrdering Facility: [facility] Address:[address] [place] [id number] Performed By: #### CMP, HBA1C, FREET3, FT4, TSH #### [place] [address] Loxmsr [Moles/Vol]139 mmol/MGeuhwy766-731XlzzkhsjzCincinnati Va Medical Center Comment on above:Order Comment: Specimen Type: BLOOD SPECIMENOrdering Facility: [facility] Address:[address] [place] [address] Performed By: #### CMP, HBA1C, FREET3, FT4, TSH #### [place] [address] Wcyz nitrogen [Mass/Vol]18 mg/dLNormal7-21[facility] Comment on above:Order Comment: Specimen Type: BLOOD SPECIMENOrdering Facility: [facility] Address:[address] [place] [address] Performed By: #### CMP, HBA1C, FREET3, FT4, TSH #### [place] [address] SYW A1Con 98-51-5814Qhtwqpn glucose Estimated from glycated hemoglobin (Bld) [Mass/Vol]160 mg/dLNormalCMercy Health Kings Mills HospitalComment on above:Order Comment: Specimen Type: BLOOD SPECIMENOrdering Facility: [facility] Address:[address] [place], [place] [address]Result Comment: eAG: (Estimated average glucose) is a calculated value from HgbA1c and is training representative of the average blood glucose level in the last 2-3 month period.Performed By: #### CMP, HBA1C, FREET3, FT4, TSH #### [place] [address] HbA9t (Bld) [Mass fraction]7.2 %High4.3-5.6CH[facility] on above:Order Comment: Specimen Type: BLOOD SPECIMENOrdering Facility: [facility] Address:[address] [place], [place] [address]Result Comment: [place] [employer] guidelines indicate that patients with HgbA1c in the range 5.7-6.4% are at increased risk for development of diabetes, and intervention by lifestyle modification may be beneficial. HgbA1c greater or equal to 6.5% is considered diagnostic of diabetes.Performed By: #### CMP, HBA1C, FREET3, FT4, TSH #### [place] [address] QVRWVQC ELECTROPHORESIS SERUM (P)on 08-54-7117Ijlmqqk [Mass/Vol]4.18 g/dLNormal3.37-4.23[facility] on above:Order Comment: Specimen Type: BLOOD SPECIMENOrdering Facility: [facility] Address:[address] [place], [place] [address]Performed By: #### CMP, HBA1C, FREET3, FT4, TSH #### [place] [address] Eftgo 1 globulin Elph [Mass/Vol]0.24 g/dLNormal0.18-0.31[facility] on above:Order Comment: Specimen Type: BLOOD SPECIMENOrdering Facility: [facility] Address:[address] [place], [place] [address]Performed By: #### CMP, HBA1C, FREET3, FT4, TSH #### [place] [address] Dcdbo 2 globulin Elph [Mass/Vol]0.83 g/dLNormal0.52-0.97[facility] on above:Order Comment: Specimen Type: BLOOD SPECIMENOrdering Facility: [facility] Address:[address] [place], [place] [address]Performed By: #### CMP, HBA1C, FREET3, FT4, TSH #### [place] [address] Tars globulin Elph [Mass/Vol]1.21 g/dLNormal0.84-1.36[facility] on above:Order Comment: Specimen Type: BLOOD SPECIMENOrdering Facility: [facility] Address:[address] [place], [place] [address]Performed By: #### CMP, HBA1C, FREET3, FT4, TSH #### [place] [address] Kicwm globulin Elph (Body fld) [Mass fraction]0.74 g/dLNormal 0.70-1.44[facility] on above:Order Comment: Specimen Type: BLOOD SPECIMENOrdering Facility: [facility] Address:[address] [place], [place] [address]Performed By: #### CMP, HBA1C, FREET3, FT4, TSH #### [place] [address] G-PROTEIN LOCATIONNormalCHocking Valley Community Hospital on above: Order Comment: Specimen Type: BLOOD SPECIMENOrdering Facility: [facility] Address:[address] [place], [place] [address]Result Comment: Not Applicable.Performed By: #### CMP, HBA1C, FREET3, FT4, TSH #### [place] [address] Xdjsles Fractions [Interp]No definitive M protein is identified on protein electrophoresis.NormalNo definitive M protein is identified on protein electrophoresis.[facility] on above:Order Comment: Specimen Type: BLOOD SPECIMENOrdering Facility: [facility] Address:[address] [place], [place] [address]Performed By: #### CMP, HBA1C, FREET3, FT4, TSH #### [place] [address] Yxxoubp.monoclonal Elph [Mass/Vol]0.00 g/dLNormal<=0.00[facility] on above:Order Comment: Specimen Type: BLOOD SPECIMENOrdering Facility: [facility] Address:[address] [place], [place] [address]Performed By: #### CMP, HBA1C, FREET3, FT4, TSH #### [place] [address] IWM STAFF REVIEWReviewed by Ginette Doyle MDNormalCHocking Valley Community Hospital on above:Order Comment: Specimen Type: BLOOD SPECIMENOrdering Facility: [facility] Address:[address] [place], [place] [address]Performed By: #### CMP, HBA1C, FREET3, FT4, TSH #### [place] [address] Wkkd SerPl-mCncon 22-02-7055Csaxbsq [Mass/Vol]7.2 g/dLNormal6.3-8.0 [facility] on above:Order Comment: Specimen Type: BLOOD SPECIMEN [facility] Address: [address] [place], [place] [address]Performed By: #### 2885-2 #### [facility] CLIA [id number] [address] [place], [place] [address]T3 FREE BLDon 69-81-2943Dkwc T3 [Mass/Vol]3.1 pg/mLNormal2.3-4.1CH[facility] on above: Order Comment: Specimen Type: BLOOD SPECIMENOrdering Facility: [facility] Address:[address] [place], [place] [address]Performed By: #### CMP, HBA1C, FREET3, FT4, TSH #### [place] [phone] FREE/FREE THYROXon [id number] T4 [Mass/Vol]2.5 ng/dLHigh 0.9-1.7CH[facility] on above:Order Comment: Specimen Type: BLOOD SPECIMENOrdering Facility: [facility] Address:[address] [place], [place] [address]Performed By: #### CMP, HBA1C, FREET3, FT4, TSH #### [place] [phone] SerPl-aCncon [id number] Qn0.228 m[IU]/LLow0.270-4.200 [facility] on above:Order Comment: Specimen Type: BLOOD SPECIMENOrdering Facility: [facility] Address:[address] [place] [id number] By: #### CMP, HBA1C, FREET3, FT4, TSH #### [facility] [address] [place], [place] [id number] TBCRat [id number] (ENDOMN) CANELO PATHAK ([id number]) 1965 F Date Time Provider Department 10/03/21 ASAD ANSARI During your visit today, we recorded the following information about you: Renea Mcfarland Tabulating Machine Mechanic 10/03/2021 3:05 PM Addendum Patient called in [...] Fully Assessed Reason for Visit: Lab Orders [2538] Primary Visit Diagnosis:Acquired hypothyroidism [E03.9] Other Visit Diagnosis:Controlled type 2 diabetes mellitus without complication, without long-term current use of insulin (HCC) [E11.9] Order(s):TSH BLD [SQTSH] Order #: [id number] FUTURE T4 FREE/FREE THYROX [SQFT4] Order #: [id number] FUTURE T3 FREE BLD [SQFREET3] Order #: [id number] FUTURE COMP METABOLIC PANEL [SQCMP] Order #: [id number] FUTURE HGB A1C [CUDRH2Z] Order #: [id number] FUTURE Prescriptions as of 10/05/2021 - metFORMIN ER (GLUCOPHAGE XR) 500 mg 24 hr tablet Take 2 tablets by mouth twice daily. - levothyroxine (SYNTHROID) 112 mcg tablet Take 2 tablets by mouth once daily. - cyclobenzaprine (FLEXERIL) 10 mg tablet - Cholecalciferol, Vitamin D3, 125 mcg (5,000 unit) cap - Vitamin D [place] ([employer]) Take 1 capsule by mouth daily with food. - montelukast (SINGULAIR) 10 mg tablet Take 10 mg by mouth daily at bedtime. - MULTIVIT-MINERALS/FERROUS GLUC (CENTRAM-CARE ORAL) Take by mouth twice daily. - esomeprazole mag trihydrate(NEXIUM 40 MG CAP) Take one(1) capsule daily. - mometasone furoate(NASONEX 50 MCG/ACTUATION SPRAY) Combs twice in each nostril once daily. - cetirizine hcl(ZYRTEC 10 MG TAB) Take one(1) tablet daily. - fluticasone/salmeterol(ADVAIR DISKUS 250 MCG-50 MCG/DOSE FOR INHALATION) Take one(1) inhalation twice daily; rinse and gargle mouth with water after each use. 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 Gin Jesus.MB [Mass/Vol]0.66 ng/mLNormal<=3.60[facility] Comment on above:Performed By: #### FT3, CMP, LIPID, TSH #### [facility] [address] [place] [address] Dr. Gin AmosTROP6.4 pg/mLNormal4.0-51.3The [facility] HospitalComment on above:Result Comment: CUT-OFF POINTS HAVE BEEN ESTABLISHED BASED ON THE FOURTH UNIVERSAL DEFINITIONS OF MYOCARDIAL INFARCTION. THE UPPER REFERENCE LIMIT (URL) OF TROPONIN, DEFINED THE 99TH PERCENTILE OF cTnI DISTRIBUTION IN A REFERENCE POPULATION, HAS BEEN CONFIRMED THE DECISION THRESHOLD FOR CA DIAGNOSIS.Performed By: #### FT3, CMP, LIPID, TSH #### [facility] [address] [place] [address] Dr. Gin CliftonO28 ng/mLNormal9-82[facility] HospitalComment on above: Performed By: #### FT3, CMP, LIPID, TSH #### [facility] [address] [place] [address] Dr. Gin Salter AUTO DIFFon 37-16-3756EFXE #0.1 103/ulNormal0.0-0.1The [facility] HospitalComment on above:Performed By: #### A1C #### [facility] [address] [place] [address] Dr. Gin ChewBasophils/100 WBC (Bld)0.7 %Normal0.2-2.0[facility] Comment on above:Performed By: #### A1C #### [facility] [address] [address] [address] Gin Carlton #0.5 103/ulNormal0.0-0.7The [facility] HospitalComment on above: Performed By: #### A1C #### [facility] [address] [place] [address] Dr. Gin Reganosinophils/100 WBC (Bld)4.4 %Normal0.9-7.0The [facility] Comment on above:Performed By: #### A1C #### [facility] [address] [place] [address] Dr. Gin Reganrythrocyte distribution width (RBC) [Ratio]12.7 %Drgmaq54.0-15.0 The [facility] HospitalComment on above:Performed By: #### A1C #### [facility] [address] [place] [address] Dr. Gin ChewHematocrit (Bld) [Volume fraction]42.2 %Wpfeor70.0-48.0The [facility] HospitalComment on above:Performed By: #### A1C #### [facility] [address] [place] [address] Dr. Gin ChewHemoglobin (Bld) [Mass/Vol]14.1 g/cUGxhdgf55.0-16.0The [facility] HospitalComment on above:Performed By: #### A1C #### [facility] [address] [place] [address] Dr. Gin Harris #0.10 10e3/ulCritically high0.00-0.03The [facility] Comment on above:Performed By: #### A1C #### [facility] [address] [place] [address] Dr. Gin Harris %0.9 %Critically high0.0-0.5The [facility] HospitalComment on above:Performed By: #### A1C #### [facility] [address] [place] [address] Dr. Gin WhitakerH #3.4 103/ulNormal1.2-3.8The [facility] HospitalComment on above:Performed By: #### A1C #### [facility] [address] [place] [address] Dr. Gin ChewLymphocytes/100 WBC (Bld)29.9 %Srdrey09.5-60.0The [facility] HospitalComment on above:Performed By: #### A1C #### [facility] [address] [place] [address] Dr. Gin JangUAL DIFF REQNONormalThe [facility] HospitalComment on above: Performed By: #### A1C #### [facility] [address] [place] [address] Dr. Gin Love (RBC) [Entitic mass]31.0 bdPozqul95.7-34.0The [facility] HospitalComment on above:Performed By: #### A1C #### [facility] [address] [place] [address] Dr. Gin Love (RBC) [Mass/Vol]33.4 g/kNLeutyy50.9-35.2The [facility] HospitalComment on above:Performed By: #### A1C #### [facility] [address] [place] [address] Dr. Gin Love (RBC) [Entitic vol]92.7 vQBgwlyx25.0-99.0The [facility] HospitalComment on above:Performed By: #### A1C #### [facility] [address] [place] [address] Dr. Gin Reyes #0.7 103/ulNormal0.3-0.8The [facility] HospitalComment on above:Performed By: #### A1C #### [facility] [address] [place] [address] Dr. Gin Mathiasocytes/100 WBC (Bld)6.5 %Normal1.7-12.0The [facility] Comment on above:Performed By: #### A1C #### [facility] [address] [place] [address] Dr. Gin Romero #6.5 103/ulNormal1.4-6.5The [facility] HospitalComment on above:Performed By: #### A1C #### [facility] [address] [address] [address] Gin ChewNeutrophils/100 WBC (Bld)57.6 %Thdndw59.0-75.0The [facility] HospitalComment on above:Performed By: #### A1C #### [facility] [address] [address] [address] Gin ChewPlatelet mean volume (Bld) [Entitic vol]10.1 fLNormal9.5-13.5The [facility] HospitalComment on above:Performed By: #### A1C #### [facility] [address] [place] [address] Dr. Gin ChewPLT349 103/ofBeofwh395-658Blm [facility] HospitalComment on above: Performed By: #### A1C #### [facility] [address] [place] [address] Dr. Gin ChewRBC4.55 106/ulNormal4.20-5.40The [facility] HospitalComment on above:Performed By: #### A1C #### [facility] [address] [place] [address] Dr. Gin ChewWBC11.3 103/ulCritically high4.0-11.0The [facility] HospitalComment on above:Performed By: #### A1C #### [facility] [address] [place] [address] Dr. Gin ChewCT ABD/PELVIS WO CONon 12-82-3794JZ ABD/PELVIS WO CONEXAMINATION: CT ABD/PELVIS WO CON, [...] Electronically authenticated by: JEFF PATHAK Date: 2021-09-28 10:31The [facility] HospitalPOINT OF CARE GLUCOSEon 04-35-6028Wkerzyr [Mass/Vol]129 mg/dL Critically uvnm62-658Mwv [facility] HospitalComment on above:Performed By: #### FT3, CMP, LIPID, TSH #### [facility] [address] [place] [address] Dr. Gin ChewPROF 14(COMP METB)on 67-74-6043Uqwbwld [Mass/Vol]3.7 g/dLNormal 3.4-5.0The [facility] on above:Performed By: #### FT3, CMP, LIPID, TSH #### [facility] [address] [place] [address] Dr. Gin ChewAlbumin/Globulin [Mass ratio]1.1 {ratio}NormalThe [facility] on above:Performed By: #### FT3, CMP, LIPID, TSH #### [facility] [address] [place] [address] Dr. Gin Cm [Catalytic activity/Vol]79 U/SBdjehn86-213Rse [facility] on above:Performed By: #### FT3, CMP, LIPID, TSH #### [facility] [address] [address] [address] Gin Vera [Catalytic activity/Vol]28 U/RVrgeiw49-34Zvy [facility] on above:Performed By: #### FT3, CMP, LIPID, TSH #### [facility] [address] [place] [address] Dr. iGn Hayes gap [Moles/Vol]9.9 mmol/LNormalThe [facility] HospitalComment on above:Performed By: #### FT3, CMP, LIPID, TSH #### [facility] [address] [address] [address] Gin ChewAST [Catalytic activity/Vol]15 U/BTufsut48-89Inb [facility] HospitalComment on above:Performed By: #### FT3, CMP, LIPID, TSH #### [facility] [address] [address] [address] Gin ChewBilirubin [Mass/Vol]0.3 mg/dLNormal0.2-1.0The [facility] Comment on above:Performed By: #### FT3, CMP, LIPID, TSH #### [facility] [address] [place] [address] Dr. Gin ChewCalcium [Mass/Vol]9.2 mg/dLNormal8.5-10.1The [facility] Comment on above:Performed By: #### FT3, CMP, LIPID, TSH #### [facility] [address] [address] [address] Gin ChewChloride [Moles/Vol]100 mmol/RRbeocz77-173Vlo [facility] Comment on above:Performed By: #### FT3, CMP, LIPID, TSH #### [facility] [address] [address] [address] Gin ChewCO2 [Moles/Vol]32.1 mmol/LCritically high21.0-32.0The [facility] HospitalComment on above:Performed By: #### FT3, CMP, LIPID, TSH #### [facility] [address] [place] [address] Dr. Gin ChewCreatinine [Mass/Vol]0.75 mg/dLNormal0.55-1.02The [facility] HospitalComment on above:Performed By: #### FT3, CMP, LIPID, TSH #### [facility] [address] [place] [address] Dr. Greenfield ChangEGFR-AF SENEGALESE>60Normal>=60The [facility] HospitalComment on above:Performed By: #### FT3, CMP, LIPID, TSH #### [facility] [address] [address] [address] Gin ReganGFR-NON AF SENEGALESE>60Normal>=60The [facility] HospitalComment on above:Performed By: #### FT3, CMP, LIPID, TSH #### [facility] [address] [address] [address] Gin ChewGlobulin (S) [Mass/Vol]3.4 g/dLNormalThe [facility] HospitalComment on above:Performed By: #### FT3, CMP, LIPID, TSH #### [facility] [address] [address] [address] Gin ChewGlucose [Mass/Vol]138 mg/dLCritically joim68-361Tai [facility] HospitalComment on above:Performed By: #### FT3, CMP, LIPID, TSH #### [facility] [address] [place] [address] Dr. Gin ChewPotassium [Moles/Vol]4.0 mmol/LNormal3.5-5.1The [facility] Comment on above:Performed By: #### FT3, CMP, LIPID, TSH #### [facility] [address] [address] [address] Gin ChewProtein [Mass/Vol]7.1 g/dLNormal6.4-8.2The [facility] Comment on above:Performed By: #### FT3, CMP, LIPID, TSH #### [facility] [address] [address] [address] Gin ChewSodium [Moles/Vol]138 mmol/NAlkaiq073-004Xgo [facility] Comment on above:Performed By: #### FT3, CMP, LIPID, TSH #### [facility] [address] [place] [address] Dr. Gin ChewUrea nitrogen [Mass/Vol]17.0 mg/dLNormal7.0-18.0The [facility] HospitalComment on above:Performed By: #### FT3, CMP, LIPID, TSH #### [facility] [address] [place] [address] Dr. Gin ChewUrea nitrogen/Creatinine [Mass ratio]22.7 mg/mgNoMetroHealth Parma Medical CenterComment on above:Performed By: #### FT3, CMP, LIPID, TSH #### [facility] [address] [place] [address] Dr. Gin ChewPROTIMEon 02-11-4708DIP Coag (PPP) [Relative time]0.94 {INR} NormalJoint Township District Memorial HospitalComment on above:Performed By: #### BMP #### [facility] [address] [place] [address] Dr. Gin Victoria GUIDELINESSEE BELOWThe [facility] HospitalComment on above:Result Comment: DESIRED INR: 2.0 - 3.0 CONDITIONS NOT LISTED BELOW 2.5 - 3.5 FOR PROSTHETIC HEART VALVE REPLACEMENT 2.5 - 3.5 RECURRENT THROMBOSIS Performed By: #### BMP #### [facility] [address] [place] [address] Dr. Gin ChewPT Coag (PPP) [Time]10.2 sNormal9.0-11.6The [facility] Comment on above:Performed By: #### BMP #### [facility] [address] [place] [address] Dr. Gin Jimenez 00-48-7396mATA Coag (Bld) [Time]26.9 lAwxlas34.3-36.2[facility] HospitalComment on above:Performed By: #### BMP #### [facility] [address] [place] [address] Dr. Gin Quiroz, HIGH SENSITIVITYon 58-39-7875CAKOWW3.3 pg/mLNormal 4.0-51.3The [facility] HospitalComgarden city hospital on above:Result Comment: CUT-OFF POINTS HAVE BEEN ESTABLISHED BASED ON THE FOURTH UNIVERSAL DEFINITIONS OF MYOCARDIAL INFARCTION. THE UPPER REFERENCE LIMIT (URL) OF TROPONIN, DEFINED THE 99TH PERCENTILE OF cTnI DISTRIBUTION IN A REFERENCE POPULATION, HAS BEEN CONFIRMED THE DECISION THRESHOLD FOR CA DIAGNOSIS.Performed By: #### BMP #### [facility] [address] [place] [address] Dr. Yilan ChangXR CHEST 1 Von 58-64-6688EV CHEST 1 VEXAMINATION: XR CHEST 1 V [...] Electronically authenticated by: JEFF PATHAK Date: 2021-09-28 09:20[facility] [id number] (ENDOMN) CANELO PATHAK ([id number]) 1965 F Date Time Provider Department 07/21/21 [...] to please [facility] are [facility]. Allergies [...] mcg (5,000 unit) cap - Vitamin D [place] ([employer]) Take 1 capsule by mouth daily with food. - montelukast (SINGULAIR) 10 mg tablet Take 10 mg by mouth daily at bedtime. - MULTIVIT-MINERALS/FERROUS GLUC (CENTRAM-CARE ORAL) Take by mouth twice daily. - esomeprazole mag trihydrate(NEXIUM 40 MG CAP) Take one(1) capsule daily. - mometasone furoate(NASONEX 50 MCG/ACTUATION SPRAY) Combs twice in each nostril once daily. - cetirizine hcl(ZYRTEC 10 MG TAB) Take one(1) tablet daily. - fluticasone/salmeterol(ADVAIR DISKUS 250 MCG-50 MCG/DOSE FOR INHALATION) Take one(1) inhalation twice daily; rinse and gargle mouth with water after each use. 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] 09/20/2015 Metabolic syndrome [E88.81] 09/20/2015 Sensorineural hearing loss, bilateral [H90.3] 12/16/2018 Encounter Status:Closed by LUAN BIRMINGHAM on 07/21/21[facility] [id number] (ENDOMN) LAWSONCANELO ([id number]) 1965 F Date Time Provider Department 06/22/21 ASAD ANSARI During your visit today, we recorded the following information about you: Neema Gunderson Adm 06/22/2021 9:10 AM Signed Patient called in requesting the results of her labs that she had completed on 06/16/2021 Canelo can be reached at [phone] (c) or can be reached through [employer]. Allergies As of Date: 06/22/2021 Noted Allergy [...] Fully Assessed Reason for Visit: Patient Question [8327] Prescriptions as of 05/10/2022 - levothyroxine (SYNTHROID) [...] daily. - mometasone furoate(NASONEX 50 MCG/ACTUATION SPRAY) Combs twice in each nostril once daily. - [...] 12/16/2018 Encounter Status:Closed by NEEMA HIGGINBOTHAM on 05/10/22NoMetroHealth Parma Medical CenterTal [id number] Visit (ENDOMN) CANELO PATHAK ([id number]) 1965 F Date Time Provider Department 06/16/21 1:20 PM ASAD ANSARI During your visit today, we recorded the following information about you: Pulse Blood pressure Weight 87/minute 168/97 128.7 kg Aracelis Rivers Ma 06/16/2021 12:23 PM Signed Thank you for choosing the [facility] Department of Endocrinology, Diabetes and Metabolism. Did you know that you need to call 48 hours in advance of your scheduled visit, if you are unable to make your appointment? The [facility]inology [facility] Metabolism [place] thanks you for your commitment, because patients not showing to their appointment results in a lost opportunity for patients to receive [facility] at the [facility]. To Cancel an appointment, please choose one of the following: - Call the Appointment Call Center at [phone] - From [employer], Go to Appointments ? Cancel Appts If cancelling, consider your need to reschedule to prevent further delays in your care. To Schedule an appointment, please choose one of the following: - Call the Appointment Call Center at [phone] - From [employer], Go to Appointments ? Request an Appt Asad Ansari MD 06/16/2021 1:56 PM Signed Last Visit: This is the first visit. Ms. Pathak is here for follow up regarding her DM Type 2 and hypothyroidism. Current Immunizations: Most Recent Immunizations Administered Date(s) Administered COVID-19 vaccine, age 12+ yr (Jaman - PURPLE TOP) 09/23/2020 PHYSICAL EXAMINATION: BP [...] mouth daily before breakfast. - Vitamin D [place] ([employer]) Take 1 capsule by mouth daily with food. - montelukast (SINGULAIR) 10 mg tablet Take 10 mg by mouth daily at bedtime. - MULTIVIT-MINERALS/FERROUS GLUC (CENTRAM-CARE ORAL) Take by mouth twice daily. - esomeprazole mag trihydrate(NEXIUM 40 MG CAP) Take one(1) capsule daily. - mometasone furoate(NASONEX 50 MCG/ACTUATION SPRAY) Combs twice in each nostril once daily. - [...] focal signs. No tremors. (more content not included)...NormalPaulding County Hospital Metabolic Panelon 30-40-0368Dhsrzwk [Mass/Vol]4.6 g/dL Normal3.9-4.9CMercy Health Kings Mills HospitalComment on above:Performed By: #### CMP, HBA1C, FREET3, FT4, TSH #### [address] [address] MKX [Catalytic activity/Vol]83 U/TPfryms99-816NkzteqcnfParkview Health Montpelier Hospital on above:Performed By: #### CMP, HBA1C, FREET3, FT4, TSH #### [address] [address] XAO [Catalytic activity/Vol]28 U/LNormal7-38[facility] Cleveland-Fairhillment on above:Performed By: #### CMP, HBA1C, FREET3, FT4, TSH #### [address] [address] Qpfrz gap [Moles/Vol]12 mmol/LNormal9-18[facility] Comment on above:Performed By: #### CMP, HBA1C, FREET3, FT4, TSH #### [address] [address] OVH [Catalytic activity/Vol]25 U/WHnugvq35-05EszxjoprpParkview Health Montpelier Hospital on above:Performed By: #### CMP, HBA1C, FREET3, FT4, TSH #### [address] [id number] Qlgkjaogc [Mass/Vol]0.4 mg/dLNormal0.2-1.3Clevelformerly [facility] Comment on above:Performed By: #### CMP, HBA1C, FREET3, FT4, TSH #### [address] [address] Qfvkacc [Mass/Vol]10.0 mg/dLNormal8.5-10.2CMercy Health Kings Mills Hospital Comment on above:Performed By: #### CMP, HBA1C, FREET3, FT4, TSH #### [address] [address] Rszgvmfj [Moles/Vol]102 mmol/AVuowuz46-780GlbanudixCincinnati Va Medical Center Comment on above:Performed By: #### CMP, HBA1C, FREET3, FT4, TSH #### [address] [address] UF9 [Moles/Vol]27 mmol/NXirwci44-51GcjcugqfiCincinnati Va Medical CenterComment on above:Performed By: #### CMP, HBA1C, FREET3, FT4, TSH #### [address] [address] Gryajeliae [Mass/Vol]0.74 mg/dLNormal0.58-0.96[facility] CenterComment on above:Performed By: #### CMP, HBA1C, FREET3, FT4, TSH #### [address] [address] xAJV- Amer.>60NormalCMercy Health Kings Mills HospitalComment on above:Performed By: #### CMP, HBA1C, FREET3, FT4, TSH #### [address] [address] gNZN-All Other Races>60NormalCMercy Health Kings Mills HospitalComgarden city hospital on above:Result Comment: eGFR (Estimated GFR) [...] #### CMP, HBA1C, FREET3, FT4, TSH #### [facility] [address], [place] [address] [phone] [Mass/Vol]106 mg/wIHtjs21-66KzasuecklCincinnati Va Medical Center Comment on above:Result Comment: The [place] Diabetes Association (ADA) provides guidance for cutoff [...] Standards of Medical Care in Diabetes 2016, [place] Diabetes Association. Diabetes Care. 2016.39(Suppl 1).Performed By: #### CMP, HBA1C, FREET3, FT4, TSH #### [facility] [address] [place], [place] [address] [phone] [Moles/Vol]3.9 mmol/LNormal3.7-5.1CMercy Health Kings Mills HospitalComment on above:Performed By: #### CMP, HBA1C, FREET3, FT4, TSH #### [facility] [address] [place], [place] [address] [phone] [Mass/Vol]7.2 g/dLNormal6.3-8.0[facility] Comment on above:Performed By: #### CMP, HBA1C, FREET3, FT4, TSH #### [address] [phone] [Moles/Vol]141 mmol/XPyastx285-722VnibnsfhrCincinnati Va Medical Center Comment on above:Performed By: #### CMP, HBA1C, FREET3, FT4, TSH #### [address] [phone] nitrogen [Mass/Vol]15 mg/dLNormal7-21[facility] Comment on above:Performed By: #### CMP, HBA1C, FREET3, FT4, TSH #### [address] [address] Ewev T3on 51-83-1760Kxqh T3 [Mass/Vol]2.8 pg/mLNormal2.3-4.1 [facility] CenterComment on above:Performed By: #### CMP, HBA1C, FREET3, FT4, TSH #### [address] [address] Lugl T4on 95-03-6147Vwlm T4 [Mass/Vol]2.0 ng/dLHigh0.9-1.7CHocking Valley Community Hospital on above:Performed By: #### CMP, HBA1C, FREET3, FT4, TSH #### [address] [address] Xzjzesjinl A1con 71-94-7824Ymslpbt [Mass/Vol]169 mg/dLNormal [facility] on above:Result Comment: eAG: (Estimated average glucose) is a calculated value from HgbA1c and is training representative of the average blood glucose level in the last 2-3 month period.Performed By: #### CMP, HBA1C, FREET3, FT4, TSH #### [address] [address] NoG4a (Bld) [Mass fraction]7.5 %High4.3-5.6CHocking Valley Community Hospital on above:Result Comment: [place] Diabetes Association guidelines indicate that patients with HgbA1c in the range 5.7-6.4% are at increased risk for development of diabetes, and intervention by lifestyle modif ication may be beneficial. 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) ICD10, multiple headaches , [...] Signed by: Briana Rosas MD 09/26/18 Final resultNormThe Memorial Hospital Vital Signs Date TimeVital SignValuePerforming LzwzxgyhdLnhwxbfl75-43-1804 11:11-0400Body cxwykd352.1 cmDavisergio Dontrell DO Work Phone: [phone] [place], [place] 47[address]10-30-2025 11:11-0400 Body mass index (BMI) [Ratio]43.7 kg/f0Khqzm Dontrell DO Work Phone: [phone])[address] [place], [place] 4745810-30-2025 11:11-0400 Body wgozhehkxsd48.5 [degF]Jeff Jon DO Work Phone: [phone])[address] [place], [place] 4745810-30-2025 11:11-0400 Body gmabas153.29 kgDavisergio Dontrell DO Work Phone: [phone])[address] [place], [place] 4745810-30-2025 11:11-0400 Diastolic blood hlokebcw87 mm[Hg]Jeff Jon DO Work Phone: [phone])[address] [place], [place] 4745810-30-2025 11:11-0400 Heart rate79 /minDavid Dontrell DO Work Phone: 1(036)[address] [place], [place] 4745810-30-2025 11:11-0400 SaO2% (BldA) [Mass fraction]96 %Jeff Jon DO Work Phone: [phone])[address] [place], [place] 4745810-30-2025 11:11-0400 Systolic blood mm[Hg]Jeff Dontrell DO Work Phone: [phone])[address] [place], [place] 4745810-13-2025 11:50-0400 Body .1 cmDavisergio Dontrell DO Work Phone: [phone])[address] [place], [place] 4745810-13-2025 11:50-0400 Body mass index (BMI) [Ratio]43.7 kg/e1Feyrq Dontrell DO Work Phone: [phone])[address] [place], [place] 4745810-13-2025 11:50-0400 Body hcggruohqbe43.7 [degF]Jeff Jon DO Work Phone: 1([phone])[address] [place], [place] 4745810-13-2025 11:50-0400 Body kyndrw809.29 kgDakorin Jon DO Work Phone: 1(601)[address] [place], [place] 4745810-13-2025 11:50-0400 Diastolic blood mdhhpmgo35 mm[Hg]Jeff Jon DO Work Phone: 1(974)[address] [place], [place] 4745810-13-2025 11:50-0400 Heart rate85 /minDavisergio Jon DO Work Phone: 1(364)[address] [place], [place] 4745810-13-2025 11:50-0400 SaO2% (BldA) [Mass fraction]99 %Jeff Jon DO Work Phone: 1(243)[address] [place], [place] 4745810-13-2025 11:50-0400 Systolic blood alpttjwq973 mm[Hg]Jeff Jon DO Work Phone: 1(985)[address] [place], [place] 4745810-07-2025 11:15-0400 Diastolic blood mmtdhtox88 mm[Hg]Jeff Jon DO Work Phone: 1(668)[address] [place], [place] 4745810-07-2025 11:15-0400 Systolic blood znibpgis338 mm[Hg]Jeff Jon DO Work Phone: 1(938)[address] [place], [place] 4745810-07-2025 10:48-0400 Body yfacqp901.1 cmDakorin Jon DO Work Phone: 1(898)[address] [place], [place] 4745810-07-2025 10:48-0400 Body mass index (BMI) [Ratio]43.7 kg/d9Dkirtkorin Jon DO Work Phone: 1(036)[address] [place], [place] 4745810-07-2025 10:48-0400 Body .9 [degF]Jeff Jon DO Work Phone: 1(815)[address] [place], [place] 4745810-07-2025 10:48-0400 Body .29 kgDakorin Jon DO Work Phone: 1(372)[address]10-07-2025 10:48-0400 Heart rate90 /minDavid Girvin DO Work Phone: 1(975)[address] [place], [place] 4745810-07-2025 10:48-0400 SaO2% (BldA) [Mass fraction]97 %Jeff Jon DO Work Phone: 1(818)[address] [place], [place] 4745807-21-2025 09:40-0400 Diastolic blood kzsxcksa60 mm[Hg]Jeff Jon DO Work Phone: 1(698)[address] [place], [place] 4745807-21-2025 09:40-0400 Systolic blood bqnaxnbn640 mm[Hg]Jeff Jon DO Work Phone: 1(886)[address] [place], [place] 4745807-21-2025 09:37-0400 Body unymri789.1 cmDavid Girvin DO Work Phone: 1(327)[address] [place], [place] 4745807-21-2025 09:37-0400 Body mass index (BMI) [Ratio]46.7 kg/e3Tnmzi Girvin DO Work Phone: 1(582)[address] [place], [place] 4745807-21-2025 09:37-0400 Body isqwnc968.45 kgDavid Girvin DO Work Phone: 1(712)[address] [place], [place] 4745807-21-2025 09:37-0400 Heart rate85 /minDavid Girvin DO Work Phone: 1(696)[address] [place], [place] 4745807-21-2025 09:37-0400 Respiratory rate20 /minDavid Girvin DO Work Phone: 1(138)[address] [place], [place] 4745807-21-2025 09:37-0400 SaO2% (BldA) [Mass fraction]96 %Jeff Jon DO Work Phone: 1(422)[address] [place], [place] 4745807-10-2025 11:36-0400 Body pucqfa521.1 cmDavid Girvin DO Work Phone: 1(270)[address] [place], [place] 4745807-10-2025 11:36-0400 Body mass index (BMI) [Ratio]46.4 kg/h1Kyjug Girvin DO Work Phone: 1(328)[address]07-10-2025 11:36-0400 Body vkkeoyumstg08.9 [degF]Jeff Jon DO Work Phone: 1(207)[address] [place], [place] 4745807-10-2025 11:36-0400 Body abzssf704.55 kgDakorin Jon DO Work Phone: 1(967)[address] [place], [place] 4745807-10-2025 11:36-0400 Diastolic blood orukauns27 mm[Hg]Jeff Jon DO Work Phone: 1(520)[address] [place], [place] 4745807-10-2025 11:36-0400 Heart rate90 /minDbalbina Jon DO Work Phone: 1(885)[address] [place], [place] 4745807-10-2025 11:36-0400 SaO2% (BldA) [Mass fraction]95 %Jeff Jon DO Work Phone: [address] [place], [place] 4745807-10-2025 11:36-0400 Systolic blood rcyuwaut466 mm[Hg]Jeff Jon DO Work Phone: 1(852)[address] [place], [place] 4745804-21-2025 10:10-0400 Diastolic blood vyxpbndp770 mm[Hg]Jeff Jon DO Work Phone: 1(631)[address] [place], [place] 4745804-21-2025 10:10-0400 Systolic blood vyectarl873 mm[Hg]Jeff Jon DO Work Phone: 1(513)[address] [place], [place] 4745804-21-2025 10:05-0400 Body qlmxam135.1 cmDakorin Jon DO Work Phone: 1(528)[address] [place], [place] 4745804-21-2025 10:05-0400 Body mass index (BMI) [Ratio]45.7 kg/a9Dmxptkorin Jon DO Work Phone: 1(956)[address] [place], [place] 4745804-21-2025 10:05-0400 Body mrowndcuegd50.9 [degF]Jeff Jon DO Work Phone: 1(312)[address] [place], [place] 4745804-21-2025 10:05-0400 Body trcuim612.73 kgDavisergio Shanevin DO Work Phone: 1(792)[address]04-21-2025 10:05-0400 Heart rate92 /Junaasergio Acostavin DO Work Phone: 1419)[address] [place], [place] 4745804-21-2025 10:05-0400 Respiratory rate20 /minDkhaisergio Girvin DO Work Phone: [phone])[address] [place], [place] 4745804-21-2025 10:05-0400 SaO2% (BldA) [Mass fraction]96 %Jeff Dontrell DO Work Phone: 1419)[address] [place], [place] 4745804-14-2025 14:36-0400 Body ersley306.1 cmDavisergio Acostavin DO Work Phone: [phone])[address] [place], [place] 4745804-14-2025 14:36-0400 Body mass index (BMI) [Ratio]46.9 kg/i4Yfzln Dontrell DO Work Phone: 1419)[address] [place], [place] 4745804-14-2025 14:36-0400 Body wuvefuastcz13.6 [degF]Jeff Acostacassi DO Work Phone: 1(957)[address] [place], [place] 4745804-14-2025 14:36-0400 Body izxznj630.91 kgDakorin Shanevin DO Work Phone: 1(066)[address] [place], [place] 4745804-14-2025 14:36-0400 Diastolic blood zooeffub01 mm[Hg]Jeff Jon DO Work Phone: 1419)[address] [place], [place] 4745804-14-2025 14:36-0400 Heart rate99 /Josué Shanevin DO Work Phone: [phone])[address] [place], [place] 4745804-14-2025 14:36-0400 Systolic blood mm[Hg]Jeff Jon DO Work Phone: 1(632)[address] [place], [place] 4745803-14-2025 09:55-0400 Body dusfwe044.1 cmDavisergio Shanevin DO Work Phone: 1(405)[address] [place], [place] 4745803-14-2025 09:55-0400 Body .73 kgDavid Dontrell DO Work Phone: [facility]02-26-2025 10:31-0500 Body nuinlv297.1 cmThe [facility]02-26-2025 10:31-0500Body mass index (BMI) [Ratio]46 kg/g6MimrtmhwzThe [facility]02-26-2025 10:31-0500Body vxmcca074.64 kgThe [facility]01-24-2025 11:14-0500Body fiaokl032.1 cmThe [facility]01-24-2025 11:14-0500Body mass index (BMI) [Ratio]46 kg/k8GwlcolcvbThe [facility] 06-13-2024 11:14-0500Body gmtpmzvonsv36.8 [degF][facility]01-24-2025 11:14-0500Body fszzye990.64 kgThe [facility] 06-13-2024 11:14-0500Diastolic blood jtxqkidb20 mm[Hg][facility]01-24-2025 11:14-0500Heart rate92 /[facility] 06-13-2024 11:14-7026DqJ3% (BldA) [Mass fraction]94 %[facility]01-24-2025 11:14-0500Systolic blood qvywesfq243 mm[Hg][facility]01-14-2025 11:45-0500Body gtnajl653.81 kgThe [facility]01-14-2025 11:45-0500Diastolic blood gsxqsimx92 mm[Hg][facility]01-14-2025 11:45-0500Heart rate91 /[facility]01-14-2025 11:45-4774IdZ8% (BldA) [Mass fraction]97 %[facility]01-14-2025 11:45-0500Systolic blood zpatyyxz854 mm[Hg] [facility]11-22-2024 11:52-0500Body neaffp955.1 cm [facility]11-22-2024 11:52-0500Body mass index (BMI) [Ratio]45.1 kg/z1KwlqytsppThe [facility]11-22-2024 11:52-0500Body jzzdfjijykp64.2 [degF][facility]11-22-2024 11:52-0500Body heeppt911.92 kgThe [facility]11-22-2024 11:52-0500Diastolic blood xendvrpd43 mm[Hg][facility]11-22-2024 11:52-0500 Heart rate86 /[facility]11-22-2024 11:52-4997DxU1% (BldA) [Mass fraction]94 %[facility]11-22-2024 11:52-0500 Systolic blood mdxpurbu275 mm[Hg][facility]11-06-2024 11:37-0500Body tkheyq654.1 cmThe [facility]11-06-2024 11:37-0500Body mass index (BMI) [Ratio]45.4 kg/m4RmzoylkwgThe [facility]11-06-2024 11:37-0500Body hngcduesslg18.4 [degF][facility]11-06-2024 11:37-0500Body vsxiav129.83 kgThe [facility]11-06-2024 11:37-0500Diastolic blood mecpmxwl13 mm[Hg][facility]11-06-2024 11:37-0500Heart rate78 /[facility]11-06-2024 11:37-0500Respiratory rate20 /[facility]11-06-2024 11:37-6582UlO5% (BldA) [Mass fraction]97 %[facility]11-06-2024 11:37-0500Systolic blood mm[Hg][facility]09-24-2024 11:53-0400Diastolic blood ntmwkegi38 mm[Hg]DO Jeff Jon Work Phone: [facility]09-24-2024 11:53-0400 Heart rate83 /Emilie Jon Work Phone: [facility]09-24-2024 11:53-0400 SaO2% (BldA) [Mass fraction]97 %DO Jeff Jon Work Phone: 1(323)[address]09-24-2024 11:53-0400 Systolic blood nqhioito834 mm[Hg]DO Jeff Jon Work Phone: 1(408)[address]08-26-2024 15:56-0400 Diastolic blood mm[Hg]DO Jeff Shanecassi Work Phone: 1(663)[address]08-26-2024 15:56-0400 Heart rate82 /minDO Jeff Shanecassi Work Phone: 1(905)[address]08-26-2024 15:56-0400 SaO2% (BldA) [Mass fraction]97 %DO Jeff Jon Work Phone: 1(469)[address]08-26-2024 15:56-0400 Systolic blood oskklrlo208 mm[Hg]DO Jeff Shanecassi Work Phone: 1(668)[address]07-31-2024 14:19-0400 Diastolic blood wbfwoujz24 mm[Hg]DO Jeff Jon Work Phone: 1(833)[address]07-31-2024 14:19-0400 Heart ogmc578 /minDO Jeff Jon Work Phone: 1(270)[address]07-31-2024 14:19-0400 SaO2% (BldA) [Mass fraction]96 %DO Jeff Jon Work Phone: 1(443)[address]07-31-2024 14:19-0400 Systolic blood czbelqvn800 mm[Hg]DO Jeff Jon Work Phone: 1(127)[address]07-17-2024 13:53-0400 Body ipjdrx195.05 kgThe [facility]07-17-2024 13:53-0400 Diastolic blood mm[Hg][facility]07-17-2024 13:53-0400Heart rate91 /minThe [facility]07-17-2024 13:53-3437NsJ2% (BldA) [Mass fraction]97 %[facility] 12-05-2023 13:53-0400Systolic blood dakvuqmp259 mm[Hg][facility]06-10-2024 14:41-0400Body .1 cmThe [facility] 10-29-2023 14:41-0400Body mass index (BMI) [Ratio]45.7 kg/s1TxlzvgajsThe [facility]06-10-2024 14:41-0400Body zlirsq241.73 kgThe [facility]06-10-2024 14:41-0400Diastolic blood mm[Hg][facility]06-10-2024 14:41-0400Heart rate87 /[facility]06-10-2024 14:41-0400Respiratory rate18 /[facility]06-10-2024 14:41-2871OiA5% (BldA) [Mass fraction]97 %[facility]06-10-2024 14:41-0400Systolic blood bghvustw874 mm[Hg] [facility]05-08-2024 14:12-0400Body agrtmk730.1 cm [facility]05-08-2024 14:12-0400Body mass index (BMI) [Ratio]46 kg/n8LbwbfywjkThe [facility]05-08-2024 14:12-0400Body zprrithelvs34.1 [degF][facility]05-08-2024 14:12-0400Body xraqrn096.64 kgThe [facility]05-08-2024 14:12-0400Diastolic blood ytcgwopa14 mm[Hg][facility]05-08-2024 14:12-0400 SaO2% (BldA) [Mass fraction]95 %[facility]05-08-2024 14:12-0400Systolic blood mm[Hg][facility] 08-28-2023 11:23-0400Diastolic blood gwxypzts69 mm[Hg][facility]04-09-2024 11:23-0400Heart rate89 /[facility] 08-28-2023 11:23-4377VpK6% (BldA) [Mass fraction]98 %[facility]04-09-2024 11:23-0400Systolic blood qveeijmj517 mm[Hg][facility]04-09-2024 10:49-0400Body .1 cmThe [facility]04-09-2024 10:49-0400Body mass index (BMI) [Ratio]45.7 kg/v9BaknnbawhThe [facility]04-09-2024 10:49-0400Body arjaey054.73 kgThe [facility]12-21-2023 14:10-0500Diastolic blood wvbjlbos19 mm[Hg] Casper Nguyen [facility]12-21-2023 14:10-0500Heart rate81 /minBrajeffry Patrick [facility]12-21-2023 14:10-0500Mean blood orboakln716 mm[Hg]Casper Nguyen [facility]12-21-2023 14:10-0500 Respiratory rate14 /minBrajeffry [facility]12-21-2023 14:10-0500 Systolic blood ociclbcz634 mm[Hg]Casper Nguyen [facility]10-30-2023 14:00-0400Body unnycm462.1 cmChristdanna Terrazas Other [employer] Other 10-30-2023 14:00-0400Body mass index (BMI) [Ratio] 45.09 kg/x6Uqnzkjtypce Mk Other [employer] Other 10-30-2023 14:00-0400Body txhfoujexmu65.8 [degF] Christopher Mk Other [employer] Other 10-30-2023 14:00-0400Body iowwio580.93 kgChristop Mk Other [employer] Other 10-30-2023 14:00-0400Respiratory rate20 /min Zenondanna Phillipsdano Other [employer] Other 10-30-2023 14:00-4620QaC3% (BldA) [Mass fraction]98 % Zenondanna Phillipsdano Other [employer] Other 10-05-2023 08:10-0400Body .1 cmDakorin Jon Other [employer] Other 10-05-2023 08:10-0400Body mass index (BMI) [Ratio] 45.26 kg/y9BbgemJeff Jon Other [employer] Other 10-05-2023 08:10-0400Body autimyhpqic46.8 [degF]Jeff Jon Other [employer] Other 10-05-2023 08:10-0400Body .38 kgDakorin Jon Other [employer] Other 10-05-2023 08:10-0400Diastolic blood icjddjyq042 mm[Hg]Jeff Jon Other [employer] Other 10-05-2023 08:10-0400Respiratory rate18 /minDavisergio Jon Other [employer] Other 10-05-2023 08:10-3156TnE9% (BldA) [Mass fraction]99 % Jeff Jon Other [phone] Other 10-05-2023 08:10-0400Systolic blood nbbgozmx494 mm[Hg] Jeff Jon Other [employer] Other 06-06-2023 16:50-0400Body vjsimi440.1 cmAmbkirby Manuel Other [employer] Other 06-06-2023 16:50-0400Body mass index (BMI) [Ratio] 45.09 kg/r5VujrvLacie Manuel Other [employer] Other 06-06-2023 16:50-0400Body fcnzgaycofc00 [degF]Lacie Manuel Other [employer] Other 06-06-2023 16:50-0400Body zbkevi105.93 kgLacie Manuel Other [employer] Other 06-06-2023 16:50-0400Diastolic blood vdmjjcxi63 mm[Hg] Lacie Manuel Other [employer] Other 06-06-2023 16:50-0400Respiratory rate18 /minLacie Manuel Other [employer] Other 06-06-2023 16:50-7124FtI7% (BldA) [Mass fraction]95 % Lacie Manuel Other [employer] Other 06-06-2023 16:50-0400Systolic blood vikrtjni046 mm[Hg] Lacie Manuel Other [employer] Other 05-30-2023 08:45-0400Body lqtuia132.1 cmChristopher Mk Other [employer] Other 05-30-2023 08:45-0400Body mass index (BMI) [Ratio] 44.76 kg/t9Zsnlyybmgxc Mk Other [employer] Other 05-30-2023 08:45-0400Body mlyardpteme00.8 [degF] Christopher Mk Other [employer] Other 05-30-2023 08:45-0400Body bulzta461.02 kgChristopher Km Other [employer] Other 05-30-2023 08:45-0400Diastolic blood rtmaxend57 mm[Hg] Christopher Mk Other [employer] Other 05-30-2023 08:45-0400Respiratory rate20 /min Christopher Mk Other [employer] Other 05-30-2023 08:45-0858YfK4% (BldA) [Mass fraction]98 % Christopher Mk Other [employer] Other 05-30-2023 08:45-0400Systolic blood emuirdje780 mm[Hg] Christopher Mk Other [employer] Other 04-26-2023 10:15-0400Body qrsowk813.1 cmChristopher Mk Other [employer] Other 04-26-2023 10:15-0400Body mass index (BMI) [Ratio] 43.43 kg/b5Qyoimknfpwp Mk Other [employer] Other 04-26-2023 10:15-0400Body laqiqnmcxld00.8 [degF] Ryleyer Mk Other [employer] Other 04-26-2023 10:15-0400Body .39 kgChristopher Mk Other [employer] Other 04-26-2023 10:15-0400Diastolic blood tgieouwy244 mm[Hg]Ryleyer Mk Other [employer] Other 04-26-2023 10:15-0400Respiratory rate20 /min Carlos Phillipsdano Other [employer] Other 04-26-2023 10:15-4274QcH8% (BldA) [Mass fraction]100 % Carlos Phillipsdano Other [employer] Other 04-26-2023 10:15-0400Systolic blood tmdouast386 mm[Hg] Carlos Phillipsdano Other [employer] Other 03-24-2023 13:35-0400Body kelqpp822.1 Ashley Manuel Other [employer] Other 03-24-2023 13:35-0400Body mass index (BMI) [Ratio] 26.62 kg/z1BmdhbLacie Manuel Other [employer] Other 03-24-2023 13:35-0400Body hwaymfpojna02.8 [degF]Lacie Manuel Other [employer] Other 03-24-2023 13:35-0400Body .58 kgAmbkirby Manuel Other [employer] Other 03-24-2023 13:35-0400Respiratory rate18 /minLacie Manuel Other [employer] Other 03-24-2023 13:35-9784IuE4% (BldA) [Mass fraction]98 % Lacie Manuel Other [employer] Other 02-22-2023 13:20-0500Body .1 cmDakorin Jon Other [employer] Other 02-22-2023 13:20-0500Body mass index (BMI) [Ratio] 43.26 kg/p6Hotxpkorin Jon Other [employer] Other 02-22-2023 13:20-0500Body dgwxkkcebrt05.1 [degF]Jeff Jon Other [employer] Other 02-22-2023 13:20-0500Body airjug968.94 kgDakorin Jon Other [employer] Other 02-22-2023 13:20-0500Diastolic blood uycouhag90 mm[Hg] Jeff Jon Other [employer] Other 02-22-2023 13:20-0500Respiratory rate18 /minDavisergio Jon Other [employer] Other 02-22-2023 13:20-4238GnR6% (BldA) [Mass fraction]99 % Jeff Jon Other [employer] Other [id number] 13:20-0500Systolic blood ouwltiwm100 mm[Hg] Jeff Jon Other [employer] Other 11-22-2022 13:40-0500Body nipmhc956.1 cmDakorin Jon Other [employer] Other 11-22-2022 13:40-0500Body mass index (BMI) [Ratio] 43.26 kg/w0AwcdkJeff Jon Other [employer] Other 11-22-2022 13:40-0500Body gznnsvnzdoj12.5 [degF]Jeff Jon Other [employer] Other 11-22-2022 13:40-0500Body dkpefq597.94 kgDakorin Jon Other [employer] Other 11-22-2022 13:40-0500Diastolic blood wazpqovm812 mm[Hg]Jeff Jon Other [employer] Other 11-22-2022 13:40-0500Respiratory rate18 /minDavisergio Jon Other [employer] Other 11-22-2022 13:40-6487RbY8% (BldA) [Mass fraction]98 % Jeff Jon Other [employer] Other 11-22-2022 13:40-0500Systolic blood llvvcdai113 mm[Hg] Jeff Jon Other [employer] Other 07-19-2022 12:00-0400Body jxiskv490.1 cmHeidi Jacky Other [employer] Other 07-19-2022 12:00-0400Body mass index (BMI) [Ratio] 45.09 kg/y1Lciuq Jacky Other [employer] Other 07-19-2022 12:00-0400Body yskddifxgsm73.9 [degF]Lorena Jacky Other [employer] Other 07-19-2022 12:00-0400Body tnpeqj332.93 kgHeidi Jacky Other [employer] Other 07-19-2022 12:00-0400Diastolic blood owukepto85 mm[Hg] Lorena Jacky Other [employer] Other 07-19-2022 12:00-0400Respiratory rate20 /minHeidi Jacky Other [employer] Other 07-19-2022 12:00-8821JrO1% (BldA) [Mass fraction]99 % Lorena Jacky Other [employer] Other 07-19-2022 12:00-0400Systolic blood utmtfsuy780 mm[Hg] Lorena Jacky Other [employer] Other 06-02-2022 11:30-0400Body qfhjiz724.1 cmDavid Dontrell Other [employer] Other 06-02-2022 11:30-0400Body mass index (BMI) [Ratio] 46.09 kg/r3AzbfpJeff Jon Other [employer] Other [id number] 11:30-0400Body ejgnvpbjcae97.8 [degF]Jeff Jon Other [employer] Other 06-02-2022 11:30-0400Body xommog641.65 kgDakorin Jon Other [facility] Other 06-02-2022 11:30-0400Diastolic blood rqxzeaua25 mm[Hg] Jeff Jon Other [employer] Other [id number] 11:30-0400Respiratory rate18 /minDbalbina Jon Other [employer] Other [id number] 11:30-2173JjL8% (BldA) [Mass fraction]96 % Jeff [facility] 06-02-2022 11:30-0400Systolic blood ukntwgnv800 mm[Hg] Jeff Jon Other [employer] Other [id number] 13:46-0400Body aiegnb663.83 kgLeena Seymour MD Work Phone: [facility]05-20-2022 13:46-0400Diastolic blood oayfzuiu29 mm[Hg]Leena Seymour MD Work Phone: [facility]05-20-2022 13:46-0400Heart rate94 /min Leena Seymour MD Work Phone: [facility]05-20-2022 13:46-0400Systolic blood mm[Hg]Leena Seymour MD Work Phone: [facility]10-26-2021 13:40-0400Body rqaalu307.1 cmDakorin Jon Other [employer] Other 10-26-2021 13:40-0400Body mass index (BMI) [Ratio] 45.51 kg/l4JsglmJeff Jon Other [employer] Other 10-26-2021 13:40-0400Body ejgcjzhbevk87.7 [degF]Jeff Jon Other [employer] Other 10-26-2021 13:40-0400Body ajiauq617.06 kgDakorin Jon Other [employer] Other 10-26-2021 13:40-0400Diastolic blood knexagsk28 mm[Hg] Jeff Jon Other [employer] Other 10-26-2021 13:40-0400Respiratory rate20 /minDbalbina Jon Other [employer] Other 10-26-2021 13:40-5321PqV6% (BldA) [Mass fraction]98 % Jeff Jon Other [employer] Other 10-26-2021 13:40-0400Systolic blood fxsycmjb071 mm[Hg] Jeff Jon Other [employer] Other 10-04-2021 11:00-0400Body waedpf032.1 cmChristopher Mk Other [employer] Other 10-04-2021 11:00-0400Body mass index (BMI) [Ratio] 44.93 kg/v2Kbsrsfudvgq Mk Other [employer] Other 10-04-2021 11:00-0400Body csqnznakklh14.5 [degF] Carlos Phillipsdano Other [employer] Other 10-04-2021 11:00-0400Body tirexu234.47 kgChristopher Mk Other [employer] Other 10-04-2021 11:00-0400Diastolic blood ttdzgihr01 mm[Hg] Carlos Phillipsdano Other [employer] Other 10-04-2021 11:00-0400Respiratory rate20 /min Carlos Terrazas Other [employer] Other 10-04-2021 11:00-2109DtS1% (BldA) [Mass fraction]99 % Carlos Terrazas Other [employer] Other 10-04-2021 11:00-0400Systolic blood fpcgeben080 mm[Hg] Carlos Phillipsdano Other [employer] Other Encounters Encounter DateEncounter TypeCare ProviderFacilityStart: 03-19-2025 End: 22-84-7474vpvkhemakySwgzj Girvin DO Work Phone: [facility] [place]: 03-19[facility]2025 End: 36-39-5801Ranparo encounter procedureJeff Jon DO-[facility] [place] Work Phone: Start: 03-02-2025 End: 96-03-4581xqnjqeomjaMbcwo Girvin DO Work Phone: [facility] Work Phone: Start: 03-02-2025 End: 65-85-6145Edocmnq encounter procedureDakorin Lilli Acostacassi DO-[facility] Work Phone: Start: 02-24-2025 End: 38-07-3840wpxrwhorssQqjbg Gircassi DO Work Phone: [facility] Work Phone: Start: 02-24-2025 End: 58-48-5081Tvunhub encounter procedureDavisergio Reeder Dontrell BETH-[facility] Work Phone: Start: 02-09-2025 End: 25-33-3356vyjdknplmrLYMUCE [facility] Start: 39-01-1705Ppb-patient / Non-visitGeormalissa Espino MD-[facility] Work Phone: Start: 01-08-2025 End: 02-12-6642kenzlfrkqtULBB [facility]: [id number]-patient / Non-visitGeormalissa Espino MD-[facility] Work Phone: Start: 01-05-2025 End: 99-38-0555nkmcqabvrkGYWOZT [facility] Start: 12-08-2024 End: 97-08-3002uogzenonodEwcrz Girvin DO Work Phone: [facility] Work Phone: Start: 12-08-2024 End: 32-21-1116Wuwbkal encounter procedureLorena Moore APRN [facility] Pul[facility] Work Phone: Start: 11-27-2024 End: 79-23-7994zhywebsowsUqyng Girvin DO Work Phone: [facility] Work Phone: Start: 11-27-2024 End: 75-12-8429Depbqqm encounter procedureDavid C Gircassi DO-[facility] [place] Work Phone: Start: 11-26-2024 End: 29-79-2291bzwxvshfbkZyzzj GirvinFacility:[facility] Start: 68-33-7662Amt-patient / Non-visitDavid C Dontrell DO-[facility] Work Phone: Start: 33-85-3523Lyy-patient / Non-visitDavid C Gircassi DO-[facility] Work Phone: Start: 10-24-2024 End: 98-18-7849spwykeylzrDvrdk Girvin DO Work Phone: [facility] Work Phone: Start: 10-24-2024 End: 61-07-7072Gwlhrgr encounter procedureDavid Girvin DO Work Phone: [facility] Physician Group-[facility] [place] Work Phone: Start: 09-08-2024 End: 08-99-2352djkhyjufjaClcvf Girvin DO Work Phone: [facility] Work Phone: Start: 09-08-2024 End: 18-04-5095Djxwhrh encounter procedureDavid Girvin DO Work Phone: [facility] Group-[facility] Pulmonary Work Phone: Start: 25-83-6369Joo-patient / Non-visitDavid Girvin DO Work Phone: [facility] Work Phone: Start: 09-01-2024 End: 01-59-4872burqacqtrpPbbdm Girvin DO Work Phone: [facility] Work Phone: Start: 09-01-2024 End: 09-73-4815Ihnffme encounter procedureDavid Girvin DO Work Phone: [facility] Work Phone: Start: 08-25-2024 End: 96-98-6731benrerkqhtANEPXT [facility] Start: 42-42-0198Tiz-patient / Non-visitDavid Girvin DO Work Phone: [facility] GroupS[facility] Work Phone: Start: 01-77-6209Yzm-patient / Non-visitDavid Girvin DO Work Phone: [facility] GroupS[facility] Work Phone: Start: 08-01-2024 End: 15-42-8673qngdahnnpqDdzhl Girvin DO Work Phone: [facility] Work Phone: Start: 08-01-2024 End: 87-87-1412Cbnbgcor ReferredDavid Girvin DO Work Phone: [facility]-Digestive Health Work Phone: Start: 07-30-2024 End: 75-81-7553Gnozlww encounter procedureDavid Girvin DO Work Phone: [facility] [place] Work Phone: Start: 07-30-2024 End: 51-52-6765moqakcilnkVxrfo Girvin DO Work Phone: [facility] Work Phone: Start: 07-16-2024 End: 81-39-8139vcklyhqymmKxymdsqco [facility] Work Phone: Start: 07-16-2024 End: 74-45-1389Kkamvaa encounter procedureAt[facility] Gastro Work Phone: Start: 15-31-8579ewizuqvkllSdunxibczMercer County Community Hospital Work Phone: Start: 35-98-5004Xln-patient / Non-visitFirbroken bows Physician Group-[facility] Work Phone: Start: 06-13-2024 End: 71-74-7302lllndbbksnLtiotbklcMercer County Community Hospital Work Phone: Start: 06-13-2024 End: 59-83-6773Mtkxjph encounter procedureAt[facility] [place] Work Phone: Start: 06-03-2024 End: 28-44-2137hiuiospqpoRknnyzxwkMercer County Community Hospital Work Phone: Start: 06-03-2024 End: 94-04-7674Suhsrdu encounter procedureAt[facility] Pain Mgmt Work Phone: Start: 04-11-2024 End: 34-39-2714Qtayhzd encounter procedureAt[facility] [place] Work Phone: Start: 03-26-2024 End: 91-46-4969yirlppmynwGijfrcoluMercer County Community Hospital Work Phone: Start: 03-26-2024 End: 82-36-4957Qkihnxu encounter procedureAt[facility] Work Phone: Start: 37-96-8820Zya-patient / Non-visitAt[facility] Health [facility] Work Phone: Start: 02-12-2024 End: 28-19-6014lfpoqgtzmsRJ David Girvin Work Phone: [facility] Work Phone: Start: 02-12-2024 End: 70-56-9376Axshdin encounter procedureDO Jeff Jon Work Phone: [facility] Pain Management Work Phone: Start: 02-05-2024 End: 00-08-0747wlpytawwrdZJ David Girvin Work Phone: [facility] Work Phone: Start: 02-05-2024 End: 56-57-7839Hgqtjxs encounter procedureDO Jeff Jon Work Phone: [facility] Work Phone: Start: 04-38-5411Fre-patient / Non-visitDO Jeff Jon Work Phone: [facility] GroupM[facility] Work Phone: Start: 21-75-1675odazbjthfiZpzvnShahzad Jon DO [facility] 01-14-2024 End: 55-43-2145tlaxbrnqqhDD David Girvin Work Phone: [facility] Work Phone: Start: 01-14-2024 End: 84-99-2757Tcmnfnv encounter procedureDO Jeff Jon Work Phone: [facility] Work Phone: Start: 91-27-5332cvjclwjlzdGdubsShahzad Jon DO [facility]: 92-22-2289Ljm-patient / Non-visitDO Jeff Jon Work Phone: [facility] Work Phone: Start: 12-27-2023 End: 60-30-3176tsyzydqatnPY Jeff Jon Work Phone: [facility] Work Phone: Start: 12-27-2023 End: 21-69-7451Qomgoce encounter procedureDO Jeff Jon Work Phone: [facility] Work Phone: Start: 12-19-2023 End: 47-19-0461stkogypxznVG Jeff Jon Work Phone: [facility] Work Phone: Start: 12-19-2023 End: 52-02-4360Zihzejj encounter procedureDO Jeff Jon Work Phone: [facility] Pain Management Work Phone: Start: 31-49-6804trymxgclyqKleos Clark Girvin DO [facility]: 12-12-2023 End: 12-13-8072keihellameYjfnz Clark Girvin DOFacility:[facility] CenterStart: 12-05-2023 End: 50-74-2981vdzrijhpmiOMVera Jon Work Phone: [facility] Work Phone: Start: 12-05-2023 End: 38-87-4643Rypbajj encounter procedureIvettbon secours health [facility] Physician [facility] Pain Management Work Phone: Start: 10-29-2023 End: 43-06-4049arklcbpazvGwkhqoixaDunlap Memorial Hospital Work Phone: Start: 10-29-2023 End: 52-46-1540Kanbkto encounter procedureSpike Physician Group-[facility] [place] Work Phone: Start: 40-75-0590Zin-patient / Non-visitSpike Physician Group-[facility] Work Phone: Start: 10-23-2023 End: 71-00-9431iwepqsvuhdZFLTIS Ulises JIANGNot AvailableStart: 10-09-2023 End: 98-30-1879Qtthmgxty Result EncounterHijose Jiang MD Work Phone: noms External Department UnsolicitedStart: 10-09-2023 End: 89-46-2088Zzpcslobj Result EncounterHijose Jiang MD Work Phone: noms External Department UnsolicitedStart: 09-26-2023 End: 42-94-9678hawkuelbapKevbvwpplDunlap Memorial Hospital Work Phone: Start: 09-26-2023 End: 02-25-5426Zjzorzv encounter procedureAt[facility] Health [facility] GroupLudlow [facility] Work Phone: Start: 09-24-2023 End: 01-87-3349aoukzsazbgPOWJYM H TIMMISNot AvailableStart: 09-18-2023 End: 38-09-6746dvqrxuppiaVHBDDOT A SAMANTHANot AvailableStart: 09-05-2023 End: 76-80-6040zwzpqxvmoiPGMFZX H TIMMISNot AvailableStart: 09-04-2023 End: 32-31-3453Ozjjqibae Result EncounterHilary Ulsies Jiang MD Work Phone: noms External Department UnsolicitedStart: 09-04-2023 End: 74-47-6399Psozjzrii Result EncounterHilary Ulises Jiang MD Work Phone: noms External Department UnsolicitedStart: 08-28-2023 End: 11-52-9930jhjilresmrYpqibvpniDunlap Memorial Hospital Work Phone: Start: 08-28-2023 End: 76-14-8658Ufiasfy encounter procedureAt[facility] Physician GroupLudlow Hospital Work Phone: Start: 10-25-6918Buf-patient / Non-visitAt[facility] Health [facility] Work Phone: Start: 08-21-2023 End: 96-07-7585lvgmndpwocIGNSKM H TIMMISNot AvailableStart: 06-29-2023 End: 62-34-2130ngujgzliduEpxau Girvin Other [facility] [employer] Other Start: 10-18-1187Ecrmjzrys encounterDakorin EpsteinG Shaw Hospitaltart: 05-10-2023 End: 66-84-0018njmauxeeykETVera NguyenFacility:FTMCStart: 05-10-2023 End: 71-32-8723Zgam Hilton Nguyen [facility] Start: 04-30-2023 End: 48-91-4850yxorlryitiVNPE D HILLSNot AvailableStart: 04-24-2023 End: 94-85-2284mtjqupapfhERLU D HILLSNot AvailableStart: 04-18-2023 End: 73-28-8252zvdcjthrjkUVHB D HILLSNot AvailableStart: 04-04-2023 End: 48-98-5540mfdejisykzHrrjq Girvin Other [employer] Other Start: 60-52-4487Vfpoycvhb encounterDavid DontrellTisha [facility] Medicine [place]vueStart: 03-19-2023 End: 97-08-5950mhfxsoxxdcWpzvmcfklmp Mk Other [facility] [employer] [facility] Other Start: 13-57-3189Wkmisb outpatient visit 15 minutes Carlos Valle Pulmonary DiseaseStart: 02-22-2023 End: 04-98-4265gzaovcvrskMxltw Dontrell Other [employer] Other Start: 39-32-2533Qqsgpl outpatient visit 25 minutes Jeff Aragon [facility] [place]Start: 11-24-2022 End: 43-32-1542okjoqsmtakNwtxg Dontrell Other [employer] Other Start: 16-22-6276Gobtwuuso encounterDavid DontrellTisha Family Medicine [place]vueStart: 10-24-2022 End: 60-35-6342xomxapgfzkElgrb Keller Other noH[employer] Other Start: 80-32-3426Ogmtpn outpatient visit 15 minutes [facility]ie [facility] ClydeStart: 10-17-2022 End: 95-35-4069tfywqbjejcVaquojfkhbs Mk Other [facility] Other Start: 49-89-2002Vbbmly outpatient visit 15 minutes Christopher ViviannoFPG Pulmonary DiseaseStart: 85-19-9189paxhtptnzaSmGris Garcestoshia TraboulssiFacility:523[address]Vlcyj: 91-52-0913Hncallm encounter procedureDavisergio Jon Work Phone: [phone]-Yhlvh [facility] [address] DO Work Phone: Start: 50-54-8832egpchtmtblCo. David Clark Girvin Facility:[id number]: 88-13-3183Hcglkcgrt for other preprocedural examination [facility] HospitalStart: 00-36-2450Becwaroee for preprocedural cardiovascular examinationHIMIRY [facility] Hospitaltart: 09-14-2022 Encounter for preprocedural laboratory examinationHIMIRY [facility] Hospitaltart: 94-24-3258Nxtpqsuee for preprocedural respiratory examination [facility] Shawtart: 09-13-2022 End: 63-65-5969neujadxgotXjqfrpymite Mk Other [facility] Other Start: 49-04-4546Rrkxwo outpatient visit 25 minutes Christopher Leonard Pulmonary DiseaseStart: 11-74-1129ziunfcpzkcJR DAVID GIRVINFacility:M2Rxhjl: 09-08-2022 End: 60-06-2964Fauhgkccn for preprocedural laboratory examinationDR JEFF JON Facility:X0Wilva: 09-08-2022 End: 54-21-5048sutwgvalqjGJ JEFF Priestcarondelet health [facility] Other Start: 44-74-9256Uwhphcgkx encounterDavid GircassiFPG Family Medicine [place]Start: 09-01-2022 End: 56-03-0566yhfwytyuefSfsya Dontrell Other [employer] Other Start: 79-72-6093Tmyzhrboa encounterDavid GircassiFPG [facility] [place]vueStart: 08-21-2022 End: 62-76-5753ofakanttckVTHCVNW M MANONFacility:I0Eskiv: 08-18-2022 End: 44-61-2861uffnemqhgwQhGris Coleman [employer] Other Start: 60-36-9934Rhomuzodi encounterDavid GircassiFPG [facility] [place]Start: 08-17-2022 End: 34-61-3735nvwnbghrfjOHESQX DIAB .Facility:X7Allsi: 08-14-2022 End: 36-01-5231qfpohiuirxLyhvq Dontrell Other [employer] Other Start: 95-99-7365Grjuysiwo encounterDavid GircassiG Family Medicine [place]Start: 08-11-2022 End: 43-05-1010ckxtdwxvnkBmfwa Dontrell Other [employer] Other Start: 18-06-4887Hiknwm outpatient visit 15 minutes Lacie KalebT[facility]gent Care ClydeStart: 19-84-7454Dcrdqzkro encounterDavid GircassiFPG Family Medicine [place]Start: 08-07-2022 End: 91-75-4508ebbvpdomjqKohby Gircassi Other [employer] Other Start: 16-19-7998Ovsuvjfgt encounterDavid GirvinFPG [facility] [place]vueStart: 07-12-2022 End: 50-17-8418vdzioquofkPlqoj Dontrell Other [employer] Other Start: 28-23-2876Appfzg outpatient visit 25 minutes Jeff Aragon [facility] [place]vueStart: 77-07-5961Mlnkxwhze encounter Jeff EpsteinTisha Family Medicine [place]vueStart: 07-10-2022 End: 00-83-5242zjsbkksbwbDM DAVID GIRVINFacility:P7Bpucg: 06-14-2022 End: 75-11-8386kodmgwcomuTkjbq Dontrell Other [employer] Other Start: 57-19-4015Ibgubrkvw encounterDakorin Aragon [facility] [place]vueStart: 06-07-2022 End: 10-17-8112ceubcxydohFqmks Dontrell Other [employer] Other Start: 39-54-8582Wxftfelrr encounterDakorin JonANNELTisha [facility] [place]vueStart: 04-11-2022 End: 35-23-5263tmfcjcctvfHfjle Dontrell Other [employer] Other Start: 58-43-1824Ddxffb outpatient visit 25 minutes Jeff Aragon [facility] [place]Start: 04-05-2022 End: 38-69-0140zdxgpkernwWDMohsen Slaterity:N9Ldhlr: 04-04-2022 End: 81-26-2902okaeuybvamQjeod Dontrell Other [employer] Other Start: 56-55-0707Bigmcodxc encounterDakorin JonANNELTisha [facility] [place]Start: 04-03-2022 End: 75-06-6835qnobvwyaffPivfq Dontrell Other [employer] Other Start: 96-96-8797Xqxtvubac encounterDakorin JonANNELTisha [facility] [place]vueStart: 03-21-2022 End: 00-94-3019ubxbokkanqUgqpj Dontrell Other [facility] Other Start: 39-65-3511Zoaaofitw encounterDavid Margo [facility] [place]Start: 12-09-2021 End: 75-23-5532ackzagqvoyLlait Girvin Other [facility] [employer] [facility] Other Start: 45-32-9231Vakauchnx encounterDavid LucianG Family [facility] [place]Start: 12-06-2021 End: 11-77-5714qxwidiycwmParwc Jacky Other [facility] [employer] Other Start: 83-36-6755Yklwyz outpatient visit 25 minutes Lorena GastFPG Pulmonary DiseaseStart: 87-11-9473Ajsalwuci encounterHeidi GastFPG Pulmonary DiseaseStart: 11-29-2021 End: 32-77-4017xlbmtmvuvwGA JEFF Laicility:N1Uvben: 10-20-2021 End: 77-23-1293aygddapmueCgnvm Girvin Other [facility] [employer] [facility] Other Start: 22-19-0113Knhaod outpatient visit 25 minutes Jeff Aragon [facility] BellevueStart: 10-13-2021 End: 46-61-1618oadlpfaubpYOZDG CLARK GIRVINFacility:[facility] Start: 10-13-2021 End: 60-67-1135uetlphqxkqTrqfk Chhay APRN.OPTOMETRIC COORDINATOR Work Phone: EndocrinologyComment on above:Type 2 diabetes mellitus with hyperglycemia, without long-term current use of insulin (HCC) (Primary Dx); Heraclio's diseaseStart: 10-13-2021 End: 78-74-7173Vvobffqwikiq consultation with Agustin Jimenez APRN.OPTOMETRIC COORDINATOR Work Phone: CC CHRIS FHtart: 90-37-4156Eklwpealk encounterPuttimoteo Jimenez APRN.CNP Work Phone: EndocrinologyComment on above:AppointmentStart: 10-07-2021 End: 08-15-6861vtefojruelDOGRA CLARK GIRVINFacility:[facility] Start: 10-07-2021 End: 85-03-0073Oazscgj encounter Shan Seymour MD Work Phone: RheumatologyComment on above:Fibromyalgia (Primary Dx); ALDEN (generalized anxiety disorder)Start: 05-38-4096Zjakbwusd encounterAsad Ansari MD Work Phone: EndocrinologyComment on above:Lab OrdersStart: 73-84-9258tdyyepkubtGPMohsen Laicility:R1Ajykk: 73-08-9873Sgsaizeol encounterDavisergio Aragon [facility] BellueStart: 09-28-2021 End: 57-04-1758xmvpwomzwjAGPaige Priestcarondelet health [employer] [facility] Other Start: 09-20-2021 End: 93-27-1976wtzgprjfrkLhwwaxkytpn Mk Other [employer] Other Start: 24-68-4314Atnqdtmdy encounterChristopher AvendanoFPG Pulmonary DiseaseStart: 08-22-2021 End: 72-61-1745dbmyueyukrXxbjlvhpftj Mk Other [employer] Other Start: 93-43-1026Utildvtvt encounterDavisergio Aragon [facility] BellueStart: 07-22-2021 End: 64-48-5680sfgkvoplcjFWLHN SKUGORFacility:[facility] Hospitaltart: 07-14-2021 End: 65-16-2035kdlzdxkcbbExvat Girvin Other [employer] Other Start: 44-72-4191Ifhnsjpvd encounterDavid Margo [facility] [place]Start: 07-04-2021 End: 56-69-4043lobcqstvpmCznji Girvin Other [employer] Other Start: 06-06-9450Dcgufyhzb encounterDavid Margo [facility] [place]Start: 06-28-2021 End: 75-98-7716vrfjsdpwdxTmcfl Girvin Other [facility] Other Start: 30-45-6495Amnxvqgjg encounterDavid DontrellFPG [facility] [place]Start: 43-28-3356Jrhdcritg encounterAsad Ansari MD Work Phone: EndocrinologyComment on above:Patient QuestionStart: 06-16-2021 End: 37-85-5880gdbwfwkwkaAJNYC CLARK GIRVINFacility:[facility] Start: 06-16-2021 End: 88-42-5009lhkomjofbzFOSLH SKUGORFacility:[facility] Hospitaltart: 05-25-2021 End: 07-84-2640ltvwsrvhcdXopvg Girvin Other [facility] [employer] [facility] Other Start: 37-87-7984Oklvlhjfc encounterDavid DontrellFPG [facility] [place]Start: 05-11-2021 End: 29-44-4295zmlhgkrujeBoovt Girvin Other [facility] [employer] [facility] Other Start: 58-72-4584Btdwqaufq encounterDavid DontrellFPG [facility] [place]Start: 04-27-2021 End: 96-05-4884tlgirboefeXkmko Girvin Other [employer] Other Start: 47-60-5383Pkgszjysu encounterDavid DontrellFPG [facility] [place]Start: 04-19-2021 End: 66-87-8694difvkvixtlWcjxdq Cundiff Other [facility] [employer] Other Start: 65-53-4518Aazafipwp encounterCarl Valdivia [facility] ClinicStart: 09-80-9046Gdywxdkqk encounterDakarlos Julian [facility] ClinicStart: 39-10-2701Ayefyh outpatient visit 15 minutesDavisergio Aragon [facility] [place]vueStart: 60-53-4465Uekjpryuf encounterDavisergio Aragon [facility] BellueStart: 04-96-4375Hxeava outpatient visit 15 minutesChristopher AvendanoFPG Pulmonary DiseaseStart: 09-26-2018 End: 99-64-6015Qbyytrt encounter procedureDAKORIN Reeder [facility] Procedures DateProcedureProcedure DetailPerforming ClinicianStart: 06-00-7288Gpojuxij tomography of abdomen and pelvis with contrastDakorin Jon DO Work Phone: Start: 18-86-4425P-ray of lumbar spine, four viewsDO Jeff Jon Work Phone: Start: 40-79-2389Gphet x-ray of pelvis and lower extremityDO Jeff Jon Work Phone: Start: 73-40-4389SZY HEAD/BRAIN WO/W CONTRJennie Jiang MD Work Phone: Start: 09-06-4639Xt orbit sella/post fossa/ear w/contrast matrlHijose Jiang MD Work Phone: Start: 19-14-0548Tdzbi depression screening assessment Leena Seymour MD Work Phone: Start: 09-90-9444Zhi brain brain stem w/o w/contrast materialDAVID DONTRELLAbdominal hysterectomyCasper Nguyen cholecystectomyCasper Nguyen laparoscopyCasper Nguyen Myringotomy and insertion of T tubeCasper Nguyen comment on above:g4PufumkawsdzuqItlfdoey Jones Plan of Treatment DateCare ActivityDetailAuthorStart: 61-48-0365Cqcyp [facility] Hospitaltart: 36-73-5969BujhgbzbvketqlaxwdeseaiturPN EGD/Colonoscopy (Not Applicable)[facility] Northtart: 20-05-0406Krmesgb referral [facility] Work Phone: Start: 99-70-8462BEMDIKUG SCREENDIABETES SCREEN [facility]art: 63-54-0977Thmzzqi [facility] Work Phone: Start: 26-87-3676Ywqstze [facility] Work Phone: Start: 67-57-1450Febwg depression screening assessment DEPRESSION SCREENINGCoshocton Regional Medical Centertart: 35-03-7250Whyyjcfhoq A1c/Hemoglobin.total in UykhtHLO1PVsxbgbtmg ClinicStart: 73-73-8622Umtvzvlbg vaccinationINFLUENZA (#1)[facility] Centertart: 11-25-2021 End: 29-12-2792J4 FREE BLDT3 FREE BLD Lab Routine Heraclio's disease Expected: 11/25/2021, Expires: 01/25/2022[facility] Work Phone: Comment on above:Expected: 11/25/2021, Expires: 01/25/2022tart: 11-25-2021 End: 40-86-4727Q9 FREE/FREE THYROXT4 FREE/FREE THYROX Lab Routine Heraclio's disease Expected: 11/25/2021, Expires: 01/25/2022[facility] Work Phone: Comment on above:Expected: 11/25/2021, Expires: 01/25/2022tart: 11-25-2021 End: 64-44-9334Aecvnrfilxo [Units/volume] in Serum or PlasmaTSH BLD Lab Routine Heraclio's disease Expected: 11/25/2021, Expires: 01/25/2022[facility] Work Phone: Comment on above:Expected: 11/25/2021, Expires: 01/25/2022tart: 10-07-2021 End: 23-38-5663KDEWWRT ELECTROPHORESIS SERUM W/[facility] Work Phone: Comment on above:Expected: 10/07/2021, Expires: 12/07/2021tart: 10-05-2021 End: 12-90-5299Ejoveueulsdcw metabolic 2000 panel - Serum or PlasmaCOMP METABOLIC PANEL Lab Routine Controlled type 2 diabetes mellitus without complication, without long-term current use of insulin (HCC) Expected: 10/05/2021, Expires: 12/05/2021[facility] Work Phone: Comment on above:Expected: 10/05/2021, Expires: 12/05/2021tart: 10-05-2021 End: 52-01-2661Ffefzkplci A1c/Hemoglobin.total in BloodHGB A1C Lab Routine Controlled type 2 diabetes mellitus without complication, without long-term curr ent use of insulin (HCC) Expected: 10/05/2021, Expires: 12/05/2021[facility] Work Phone: Comment on above:Expected: 10/05/2021, Expires: 12/05/2021tart: 10-05-2021 End: 90-89-4327C6 FREE BLDT3 FREE BLD Lab Routine Acquired hypothyroidism Expected: 10/05/2021, Expires: [address] [place] [address] Work Phone: Comaytt on above:Expected: 10/05/2021, Expires: 12/05/2021tart: 10-05-2021 End: 30-45-3840O3 FREE/FREE THYROXT4 FREE/FREE THYROX Lab Routine Acquired hypothyroidism Expected: 10/05/2021, Expires: [address] [place] [address] Work Phone: Comment on above:Expected: 10/05/2021, Expires: 12/05/2021tart: 10-05-2021 End: 13-69-7302Ehudsuziwai [Units/volume] in Serum or PlasmaTSH BLD Lab Routine Acquired hypothyroidism Expected: 10/05/2021, Expires: [facility] Work Phone: Comment on above:Expected: 10/05/2021, Expires: 12/05/2021tart: 89-23-1007DSJDTOWIPK ASSESSMENTDEPRESSION ASSESSMENTCoshocton Regional Medical Centertart: 03-62-3487XTEUO-19 VACCINE (3 - Booster for Pfizer series)COVID-19 VACCINE (3 - Booster for Pfizer series)[facility] Centertart: 22-76-7884GNBHJ-19 VACCINE (3 - Booster for Pfizer series)COVID-19 VACCINE (3 - Booster for Pfizer series)[facility] Centertart: 78-37-5791JKFHKYPA VACCINE (1 of 2)SHINGRIX VACCINE (1 of 2)[facility] Cent[facility]art: 55-66-6520LPIXVPBFQ (FIT-DNA)COLOGUARD (FIT-DNA)[facility] Centertart: 48-34-1531WgvyggytxtmXDYGPHBRXTKYlkarcrbz Clinic Start: 73-81-8272DODNYJOGTT CANCER SCREENINGCOLORECTAL CANCER SCREENINGCleUniversity Hospitals Parma Medical Centertart: 90-84-3055OM COLONOGRAPHYCT COLONOGRAPHYCoshocton Regional Medical Centertart: 97-26-1756YDSHZ OCCULT BLOODFECAL OCCULT BLOODCoshocton Regional Medical Centertart: 09-10-2012 LIPID SCREENLIPID SCREENCleUniversity Hospitals Parma Medical Centertart: 49-27-5337HZWRQRUVNGRAI SIGMOIDOSCOPYCleUniversity Hospitals Parma Medical Centertart: 42-07-2141JkxtsowippqILESZLKWUEgqjciklt ClinicStart: 68-05-2635BIZ TESTINGHPV TESTINGCleUniversity Hospitals Parma Medical Centertart: 09-10-1988 PAP TESTINGPAP TESTINGCleUniversity Hospitals Parma Medical Centertart: 95-89-5945LEFDTLRXH B (1 of 3 - Risk 3-dose series)HEPATITIS B (1 of 3 - Risk 3-dose series)[facility] Start: 48-01-1430Bsahx microalbumin profileDTAP,TDAP,TD (1 - Tdap)[facility]: 68-73-0444TOXRCT PCP TEAM CHRONIC DISEASE VISITANNUAL PCP TEAM CHRONIC DISEASE VISITCoshocton Regional Medical Centertart: 99-52-1592Mbbdkeonz B surface antibody levelLDL CHOLESTEROLCoshocton Regional Medical Centertart: 49-05-1804GTQ SCREENINGHIV SCREENINGCoshocton Regional Medical Centertart: 42-22-2115Cxzud depression screening assessment DEPRESSION SCREENINGGalion Hospitalrt: comp foot exam completed DIABETIC FOOT EXAMCoshocton Regional Medical Centertart: 06-05-4408Bxqcvhosb B screeningURINE ALBUMIN:CREATININE RATIOCoshocton Regional Medical Centertart: 19-09-0528Gcyjzrvnq C antibody, confirmatory testDILATED RETINAL EXAMCoshocton Regional Medical Centertart: 09-10-1973 PNEUMOCOCCAL (1 - PCV)PNEUMOCOCCAL (1 - PCV)[facility]ertart: 1965 HEPATITIS B (1 of 3 - 3-dose series)HEPATITIS B (1 of 3 - 3-dose series) [facility] HospitalAntibody to Scl-70 measurementThe [facility] Comprehensive metabolic 1999 panel - Serum or [facility] 2000 panel - Serum or [facility] 2000 panel - Serum or [facility]Com[facility] metabolic 1999 panel - Serum or Plasma [facility] CenterCT Abdomen and Pelvis WO contrastThe University Of Toledo Medical CenterInsulin [Units/volume] in Serum or [facility] ColumbusInsulin [Units/volume] in Serum or [facility] ColumbusPatient referralDayton Children'S Hospital Work Phone: Rheumatoid factor [Units/volume] in Serum or Plasma [facility] CenterUrine cultureThe [facility] XR Hip - left 2 [facility] - right 2 Views [facility] CenterXR Lumbar spine 4 [facility] HospitalXR Shoulder - left [facility] Immunizations Immunization DateImmunizationNotesCare FxarduuvJuswztfh62-68-2281pncjsho toxoid, reduced diphtheria toxoid, and acellular pertussis vaccine, adsorbedDavid Girvin DO Work Phone: [facility]10-26-2021influenza, seasonal, injectablePatient ObjectionDakarlos Jordan Other noHipSwap [employer]FM Other [id number]-25 Vaccine Pfizer - Documentation Purposes OnlyChristopher Mk Other [facility]04-15-2021COVID-19 Vaccine Pfizer - Documentation Purposes OnlyChristopher Mk Other [facility]04-22-2019Rocephin 500 mgChristopher Mk Other [employer] Other [id number] per 15 mgChristopher Mk Other [employer] Other 09-22-2015TB TestChristopher Mk Other [employer] Other 07-342310-97-4621rwixlos toxoid, reduced diphtheria toxoid, and acellular pertussis vaccine, adsorbedChristopher Mk Other [facility] CenterNEGATED: Highlighted row has not occurred!64-20-6772edowyuuxh, seasonal, injectablePatient Objection Jeff Jon Other [facility] Payers DatePayer CategoryPayerPolicy [id number] [id number] Care HMO (unspecified) AETNA [id number] Health InsuranceAETNA KYRA CHOICE POS II [id number] 2020-Present [phone] [address] [place] [address] [id number]89Onzctii Health Insurance [id number] [id number] 2..1.275786.3.57[id number] 2..1.179635.3.579.2.97455-73-4351Zxswhii9348393 2..1.246404.3.579.2.39546-38-8423Qpzdxid8733470 2.0.1.092160.3.579.2.30389-10-0112Rlyxear1208586 2.0.1.707735.3.579.2.20385-27-5461Ijjppyl8679260 2..1.813048.3.579.2.47420-57-2522Vzbhjcj2107302 2.0.1.625267.3.579.[id number] 2.0.1.662258.3.579.2.91398-21-3536Jyuiajw1221703 2.0.1.901141.3.579.2.15425-49-6235Rvxotfa6905676 2.840.1.941570.3.579.2.914[id number] 2.840.1.597815.3.579.2.8[id number] 2.0.1.769029.3.57[id number] 2..1.906815.3.579.2.89100-13-1366Eafnzzg76735610 2.0.1.413658.3.579.2.68942-02-8731Eulfzmy2411624 2..1.260148.3.579.2.207828-52-7891Nkkpxww2103811 2..1.198271.3.579.2.473411-60-1502Cmkgxpf9965429 2..1.861907.3.579.2.559445-14-3031Xpnipbl8239970 2..1.105606.3.579.2.294815-68-8394Jzjwigt8606815 2..1.508987.3.579.2.398002-33-2357Tddbmhv377557 2..1.461448.3.579.2.142302-96-5285Isrvkrk474225 2..1.756433.3.579.2.498381-59-2707Ulgluou882933 2.0.1.999298.3.579.2.203923-70-9537Uwhwqkr885756 2.0.1.062401.3.579.2.366963-53-6184Atafaid781254108 2.16.840.1.192833.3.579.2.36507-42-4205Fkromft850027083 2.16.840.1.725041.3.579.2.41519-21-3677Yrcezhe496734432 2..840.1.176446.3.579.2.65236-55-4991Pszxcsz787717607 2.16.840.1.034422.3.579.2.92132-96-0054Eaqacbm Health [id number] 2.16840.1.741302.19UnknownAETNAPrivate Health [id number] [id number] 2.840.1.289245.3.579.2.906Hhduiur99410945 2.0.1.024030.3.579.2.379Demzaun46672301 2.840.1.630988.3.579.2.531 [id number] 2.0.1.234908.3.579.2.531 Social History DateTypeDetailFacilityStart: 09-20-2015 End: 40-86-6866Fydjdfe smoking status NHISNever smoked tobaccoPromedica Bay Park Hospital Start: 09-20-2015 End: 92-14-9989Ntdioog use and exposureSmokeless tobacco non-userCoshocton Regional Medical Centertart: 06-16-2021 End: 03-59-7590Qffcayi intakeNot AskedCoshocton Regional Medical Centertart: 62-25-0423Yeh Assigned At BirthFemaleCMemorial Health Systemtart: 09-23-2021 End: 04-81-8543Fmqrymhn to SARS-CoV-2 (event)Not sureCoshocton Regional Medical Centertart: 10-13-2021 End: 17-69-1662Hbwyiil intakeEx-drinker (finding)[facility] Centertart: 01-06-2810Gguvjtj SDOH Alcohol CommentrarelyCleveland ClinicStart: 31-81-6285Euc Assigned At Kindred Healthcaretart: 06-03-2024 End: 48-93-1407YefZrbllo (finding)[facility] Northtart: 17-88-4536Uyppzwgnl beverage intakeCurrent drinker of alcohol (finding)[facility] HealthcareStart: 94-89-2392Ulzypru of Social functionNOMS HealthcareStart: 41-17-6616Gzrffrj CommentRarelyNOMS HealthcareStart: 96-21-1633TgbBootqbPSBM HealthcareStart: 76-18-1648Ivfkae identityIdentifies as female gender (finding) [facility] HealthcareStart: 33-20-9569Smhkblx smoking status NHISEx-smokerNOMS HealthcareHistory of tobacco useCurrent smokerNOMS HealthcareHistory of tobacco useCigarette SmokerNOMS Healthcare Functional Status PfxwRcandjmkdqUmviwkPzzsumqf99-29-3201Edylhvinck StatusN/[facility] Clinical Notes 12-16-2011 to 03-02-2025 Note Date & KiopZxgqQypzznin53-55-4865 Evaluation note* Author Jeff Jon [facility] 2024 12:50pmThe above note written by ___Gail Saul____ acting as human recorder, note dictated by Dr. Jones .I performed the above HPI, ROS, and Examination. I formulated and dictated the treatment plan and was present for entire encounter. Jeff Jon D.O. Author Jeff Jon [facility] CenterDana 2024 12:00pmThe above note written by ___Gail Saul____ acting as human recorder, note dictated by Dr. Jones .I performed the above HPI, ROS, and Examination. I formulated and dictated the treatment plan and was present for entire encounter. Jeff Jon D.O. [facility] Work Phone: 1(374) 811-142610-07-2025 Evaluation note* Author Jeff Jon [facility] 2024 12:00pmThe above note written by ___Gail Saul____ acting as human recorder, note dictated by Dr. Jones .I performed the above HPI, ROS, and Examination. I formulated and dictated the treatment plan and was present for entire encounter. Jeff Jon D.O. 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 [facility]08-18-2025 NoteUT Cardiology - [facility] [...] Asymmetric SNHL (sensorineural hearing loss) Osteoarthritis Other retirement (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 Palpitation Polyarthralgia Pulsatile tinnitus [...] is not ill-appearing. (more content not included)...[facility]07-10-2025 Evaluation note* Author Jeff Jon [facility] 2024 12:34pmThe above note written by ___Gail Saul____ acting as human recorder, note dictated by Dr. Jones .I performed the above HPI, ROS, and Examination. I formulated and dictated the treatment plan and was present for entire encounter. Jeff Jon D.O. Author Jeff Jon [facility] 2024 10:35amThe above note written by ___Gail Saul____ acting as human recorder, note dictated by Dr. Jones .I performed the above HPI, ROS, and Examination. I formulated and dictated the treatment plan and was present for entire encounter. Jeff Jon D.O. [facility] Work Phone: 1(646) 300-737207-10-2025 Evaluation note* Author Jeff Jon [facility] 2024 12:34pmThe above note written by ___Gail Saul____ acting as human recorder, note dictated by Dr. Jones .I performed the above HPI, ROS, and Examination. I formulated and dictated the treatment plan and was present for entire encounter. Jeff Jon D.O. [facility] Work Phone: 1(483) 768-670104-14-2025 Evaluation note* Author Jeff Jon [facility] 2024 3:45pmThe above note written by ___Gail Saul____ acting as human recorder, note dictated by Dr. Jones .I performed the above HPI, ROS, and Examination. I formulated and dictated the treatment plan and was present for entire encounter. Jeff Jon D.O. [facility] Work Phone: 1(665) 122-315704-14-2025 Evaluation note* Author Jeff Jon [facility] CenterAuthoredApril 2024 3:45pmThe above note written by ___Gail Saul____ acting as human recorder, note dictated by Dr. Jones .I performed the above HPI, ROS, and Examination. I formulated and dictated the treatment plan and was present for entire encounter. Jeff Jon D.O. Author Jeff Jon [facility] CenterAuthoredJune 2024 10:35amThe above note written by ___Gail Sual____ acting as human recorder, note dictated by Dr. Jones .I performed the above HPI, ROS, and Examination. I formulated and dictated the treatment plan and was present for entire encounter. Jeff Jon D.O. [facility] Work Phone: 1(525) 156-936304-07-2025 NoteUT Cardiology - [facility] Subjective Canelo Pathak is a 58 y.o. year old female patient being seen to establish care. Patient complains of chest pain and palpitations. Patient states she was in In patient 2 weeks ago at [facility] due to the palpitation. Patient she states she has had no change in how she feels. Still feeling palpitations, fatigued, SOB. Patient Active Problem List Diagnosis Abnormal taste in mouth Acid reflux Allergic rhinitis due to animal hair and dander Anxiety Asthma Binge eating disorder BMI 50.0-59.9, adult ([facility]) CFS (chronic fatigue syndrome) Cholesteatoma of attic of ear, right Diabetes ([facility]) Elevated blood pressure reading Fibromyalgia Gastroesophageal reflux disease with esophagitis Heraclio's disease Hepatitis Hyperlipidemia Hypertension Hypothyroidism Metabolic syndrome Asymmetric SNHL (sensorineural hearing loss) Osteoarthritis 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 Palpitation Polyarthralgia Pulsatile tinnitus of right ear Right-sided tinnitus Seasonal allergies Type 2 diabetes mellitus with hyperglycemia, without long-term current use of insulin ([facility]) UTI (urinary tract infection) Vitamin D deficiency [...] , Rfl: cet (more content not included)...[facility]03-12-2025 Radiology Diagnostic [facility]OH[facility] [place] [address] [place] [address] CT Scan Report Signed Patient: Canelo Pathak MR#: [id number] : 1965 Acct:[id number] Age/Sex: 58 / F ADM Date: 5 Loc: CT Room: Type: [facility] Attending Dr: Carol Alegria DO Copies [...] Cameron Worthy M.D.07/30/2024 1:18 PM Dictation Location: [place] [address] Transcribed By: [facility] 07/30/24 1318 Dictated By: Cameron Worthy MD 07/30/24 1314 Signed By: 07/30/24 1318 [facility] Work Phone: 1(349) 541-175702-06-2025 Chief complaint+Reason for visit Narrative * Chief [...] Seasonal allergies September 08, 2024 9:5 8am [facility] Work Phone: 1(154) 838-804801-24-2025 Evaluation note* Author Jeff Jon [facility] [place] [facility] 2024 2:07pmThe above note written by ___Gail Saul____ acting as human recorder, note dictated by Dr. Jones .I performed the above HPI, ROS, and Examination. I formulated and dictated the treatment plan and was present for entire encounter. Jeff Jon D.O. [facility] Work Phone: 1(831) 471-224901-24-2025 Evaluation note* Author Jeff Jon [facility] [place] [facility] 2024 1:07pmThe above note written by ___Gail Saul____ acting as human recorder, note dictated by Dr. Jones .I performed the above HPI, ROS, and Examination. I formulated and dictated the treatment plan and was present for entire encounter. Jeff Jon D.O. [facility] Work Phone: 1(388) 574-798011-22-2024 Evaluation note* Author Jeff Jon [facility] 2023 4:16pmI performed the above HPI, ROS, and Examination. I formulated and dictated the treatment plan and was present for entire encounter. Jeff Jon D.O. [facility] Work Phone: 1(976) 429-544711-22-2024 Evaluation note* Author Jeff Jon [facility] 2023 4:16pmI performed the above HPI, ROS, and Examination. I formulated and dictated the treatment plan and was present for entire encounter. Jeff Jon D.O. Author Jeff Jon [facility] 2024 1:07pmThe above note written by ___Gail Saul____ acting as human recorder, note dictated by Dr. Jones .I performed the above HPI, ROS, and Examination. I formulated and dictated the treatment plan and was present for entire encounter. Jeff Jon D.O. [facility] Work Phone: 1(969) 790-551806-10-2024 Evaluation note* Author Jeff Jon [facility] 2023 3:26pmThe above note written by ___Gail Saul____ acting as human recorder, note dictated by Dr. Jones .I performed the above HPI, ROS, and Examination. I formulated and dictated the treatment plan and was present for entire encounter. Jeff Jon D.O. Author Jeff Jon [facility] 2023 3:16pmThe above note written by ___Gail Saul____ acting as human recorder, note dictated by Dr. Jones .I performed the above HPI, ROS, and Examination. I formulated and dictated the treatment plan and was present for entire encounter. Jeff Jon D.O. [facility] Work Phone: 1(632) 331-394706-10-2024 Evaluation note* Author Jeff Jon [facility] 2023 3:26pmThe above note written by ___Gail Saul____ acting as human recorder, note dictated by Dr. Jones .I performed the above HPI, ROS, and Examination. I formulated and dictated the treatment plan and was present for entire encounter. Jeff Jon D.O. [facility] Work Phone: 1([phone]) 663-841505-08-2024 Hospital Discharge instructionsAmbulatory Orders* Referral to Pain Management Time Frame: 09/26/23, Location: None [facility] Work Phone: 1(391) 519-918004-09-2024 Evaluation note* Author Jeff Jon [facility] 2023 11:59amThe above note written by ___Gail Saul____ acting as human recorder, note dictated by Dr. Jones .I performed the above HPI, ROS, and Examination. I formulated and dictated the treatment plan and was present for entire encounter. Jeff Jon D.O. [facility] Work Phone: 1(316) 626-163204-09-2024 Evaluation note* Author Jeff Jon [facility] CenterAuthoredApril 2023 11:59amThe above note written by ___Gail Saul____ acting as human recorder, note dictated by Dr. Jones .I performed the above HPI, ROS, and Examination. I formulated and dictated the treatment plan and was present for entire encounter. Jeff Jon D.O. Author Jeff Jon [facility] CenterAutBerwick Hospital Center 2023 3:16pmThe above note written by ___Gail Saul____ acting as human recorder, note dictated by Dr. Jones .I performed the above HPI, ROS, and Examination. I formulated and dictated the treatment plan and was present for entire encounter. Jeff Jon D.O. [facility] Work Phone: 1(906) 891-781602-09-2024 Evaluation note* Encounter Date Diagnosis Assessment Notes Treatment Notes Treatment Clinical Notes Jun, Elevated blood pressure (ICD-10 - R03.0) [employer] Other 12-21-2023 Evaluation + Plan noteExtracted from:Title: [...] with any questions or concerns that arise. [facility]11-15-2023 Evaluation note* Encounter Date Diagnosis Assessment Notes Treatment Notes Treatment Clinical Notes Mar, Other chronic pain (ICD-10 - G89 .29) Mar,ERD (gastroesophageal reflux disease) (ICD-10 - K21.9) Mar,sthma (ICD-10 - J45.909) [employer] Other 10-30-2023 Evaluation note* Encounter Date Diagnosis Assessment Notes Treatment Notes Treatment Clinical Notes Feb, Asthma (ICD-10 - J45.909) Feb,Seasonal allergies (ICD-10 - J30.2) Feb,ERD (gastroesophageal reflux disease) (ICD-10 - K21.9) [employer] Other 10-05-2023 Evaluation note* Encounter Date Diagnosis [...] take the medication. She is going to [place] next week, so she will not make [...] disease) (ICD-10 - K21.9)Continue to follow with hat cutter and take above medication as directed. Feb,Other retirement (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 (ICD-10 - Z79.899) Feb,Hyperlipidemia, [...] 27.0. She did try to contact her metal sponge making machine operator who prescribed the once weeklydose to see why the dose was so low, but she was told she had to go in for an appointment, and she did not do this. I would like her to increase her vitamin D supplement so in addition [facility] D[facility] 2000 IU and [...] variant or something in the balance center. [employer] Other 06-06-2023 Evaluation note* Encounter Date Diagnosis [...] understanding and is agreeable to treatment plan. [employer] Other 05-30-2023 Evaluation note* Encounter Date Diagnosis Assessment Notes Treatment Notes Treatment Clinical Notes September, Asthma (ICD-10 - J45.909) September,Seasonal allergies (ICD-10 - J30.2) September,ERD (gastroesophageal reflux disease) (ICD-10 - K21.9) [employer] Other 04-26-2023 Evaluation note* Encounter Date Diagnosis Assessment Notes Treatment Notes Treatment Clinical Notes Aug, Asthma (ICD-10 - J45.909) Aug,Seasonal allergies (ICD-10 - J30.2) Aug,ERD (gastroesophageal reflux disease) (ICD-10 - K21.9) [employer] Other 03-24-2023 Evaluation note* Encounter Date Diagnosis [...] water inside ear after shower may use counseling department chair on lowest cool setting to blow dry. Follow up with PCP or UC if no improvement in the next 2-3 days. Immediate eval for severe ear pain, severe headache, neck pain/stiffness, pain, erythema, or swelling behind the ear, fever, N/V, hearing loss, fever, or any other new or concerning symptoms. Patient verbalizes understanding and is agreeable to treatment plan. [employer] Other 03-20-2023 Evaluation note* Encounter Date Diagnosis [...] with Prednisone. Jul,Other10:38 AM - 10:46 AM [employer] Other 02-22-2023 Evaluation note* Encounter Date Diagnosis Assessment Notes Treatment Notes Treatment Clinical Notes Jun, Elevated blood pressure (ICD-10 - R03.0) [employer] Other 02-22-2023 Evaluation note* Encounter Date Diagnosis [...] with above medication daily as directed. Jun,Other retirement (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 (ICD-10 - Z79.899) Jun,Nocturia [...] her to discuss this pain with her REAL ESTATE INSTRUCTOR when seen in July (2022) and her gastro doctor when she has the colonoscopy. She voices that she had endometriosis in the past and was told it could return, this does feel violeta lar to that, so she will discuss it with her metal sponge making machine operator. Jun,Elevated blood pressure (ICD-10 - R03.0)Her blood [...] ofthe intestine. She is following with a ZIGZAG APPLIQUER (Cass Cheney) in [place], [place]. She has to do a stool [...] do this. She has not seen an REAL ESTATE INSTRUCTOR in a year and a half but [...] I did recommend she [place] [facility] and apply this to her hands at night. [employer] Other 01-25-2023 Evaluation note* Encounter Date Diagnosis Assessment Notes Treatment Notes Treatment Clinical Notes May, Asthma (ICD-10 - J45.909) [employer] Other 11-22-2022 Evaluation note* Encounter Date Diagnosis Assessment Notes Treatment Notes Treatment Clinical Notes Mar, Hypothyroidism, unspecified (ICD -10 - E03.9) She voices that she is not going to return to see the air tube releaser for evaluation. She voices that her results [...] once weekly that was ordered by her REAL ESTATE INSTRUCTOR and she would like this office to take over filling this prescription. I will order a Vitamin D level to be done in three months. Mar,ther retirement (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 (ICD-10 - Z79.899) Mar,Hyperlipidemia, [...] She agrees and a referral is provided. [employer] Other 11-01-2022 Evaluation note* Encounter Date Diagnosis Assessment Notes Treatment Notes Treatment Clinical Notes Mar, Hypothyroidism, unspecified (ICD -10 - E03.9) [employer] Other 11-01-2022 Evaluation note* Encounter Date Diagnosis Assessment Notes Treatment Notes Treatment Clinical Notes Mar, Asthma (ICD-10 - J45.909) Mar,GERD (gastroesophageal reflux disease) (ICD-10 - K21.9) [employer] Other 07-19-2022 Evaluation note* Encounter Date Diagnosis Assessment Notes Treatment Notes Treatment Clinical Notes Nov, Asthma (ICD-10 - J45.909) Nov,easonal allergies (ICD-10 - J30.2) [employer] Other 06-02-2022 Evaluation note* Encounter Date Diagnosis [...] E03.9)Again, she voices that she saw the air tube releaser recently and was on 2 of the [...] Fluticasone nasal spray daily. 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 [employer] Other 05-26-2022 NoteHNO ID: [id number] Author: Anila Jimenez APRN.[facility] Service: ? Author Type: Nurse Practitioner Type: Progress Notes Filed: 10/13/2021 4:47 PM Note Text: ENDOCRINOLOGY, DIABETES AND METABOLISM DIABETES FOLLOW UP VISIT This Team Access Model visit is a phone encounter and Canelo Pathak has consented to this virtual encounter. This is a virtual visit using Codefied video visit. It is a required patient-provider [...] daily. - mometasone furoate(NASONEX 50 MCG/ACTUATION SPRAY) Combs twice in each nostril once daily. - cetirizine hcl(ZYRTEC 10 MG TAB) Take one(1) tablet daily. - fluticasone/salmeterol(ADVAIR DISKUS 250 MCG-50 MCG/DOSE FOR INHALATION) Take one(1) inhalation twice daily; rinse and gargle mouth with water after each use. No current facility-administered medications for this visit. Immunization History Administered Date(s) Administered COVID-19 vaccine, age 12+ yr (Jaman - PURPLE TOP) 09/02/2020 09/23/2020 Social History [...] >=60 mL/min/1.73m? 103 Corrected (more content not included)...[facility] [facility] History of Present illness Narrative* Anila Jimenez APRN.OPTOMETRIC COORDINATOR - 10/13/2021 4:15 PM EDT ENDOCRINOLOGY, DIABETES & METABOLISM DIABETES FOLLOW UP VISIT This Team Access Model visit is a phone encounter and Canelo Pathak has consented to this virtual encounter. This is a virtual visit using [employer] video visit. It is a required patient-provider [...] capsule daily. mometasone furoate(NASONEX 50 MCG/ACTUATION SPRAY) Combs twice in each nostril once daily. cetirizine hcl(ZYRTEC 10 MG TAB) Take one(1) tablet daily. fluticasone/salmeterol(ADVAIR DISKUS 250 MCG-50 MCG/DOSE FOR INHALATION) Take one(1) inhalation twice daily; rinse and gargle mouth with water after each use. No current facility-administered medications for this visit. Immunization History Administered Date(s) Administered COVID-19 vaccine, age 12+ yr ([employer] - [facility]) 09/02/2020 09/23/2020 Social History Tobacco [...] which included preparing to see the patient, bmpo-xz-iguf patient care, completing clinical documentation, obtaining and/or reviewing separately obtained history, performing a medically appropriate examination, counseling and educating the pat ient/family/caregiver and ordering medications, tests, or procedures. Anila Jimenez APRN.OPTOMETRIC COORDINATOR Endocrine and Metabolism [place] documented in this encounterPromedica [facility]05-20-2022 NoteHNO ID: [id number] Author: Leena Seymour MD Service: ? Author [...] mcg (5,000 unit) cap - Vitamin D [place] (Ancestry) Take 1 capsule by mouth daily with food. - montelukast (SINGULAIR) 10 mg tablet Take 10 mg by mouth daily at bedtime. - MULTIVIT-MINERALS/FERROUS GLUC (CENTRAM-CARE ORAL) Take by mouth twice daily. - esomeprazole mag trihydrate(NEXIUM 40 MG CAP) Take one(1) capsule daily. - mometasone furoate(NASONEX 50 MCG/ACTUATION SPRAY) Combs twice in each nostril once daily. - [...] effexor. Will check routine labs. Leena Seymour [facility]05-20-2022 History of Present illness Narrative* Leena [...] 125 mcg (5,000 unit) cap Vitamin D [place] (Ancestry) Take 1 capsule by mouth daily with food. montelukast (SINGULAIR) 10 mg tablet Take 10 mg by mouth daily at bedtime. MULTIVIT-MINERALS/FERROUS GLUC (CENTRAM-CARE ORAL) Take by mouth twice daily. esomeprazole mag trihydrate(NEXIUM 40 MG CAP) Take one(1) capsule daily. mometasone furoate(NASONEX 50 MCG/ACTUATION SPRAY) Combs twice in each nostril once daily. cetirizine [...] labs. Leena Seymour MD documented in this encounterPromedica Bay Park Hospital05-16-2022 Miscellaneous Notes* Telephone Encounter - Renea Mcfarland Tabulating Machine Mechanic - 10/03/2021 3:02 PM EDT Patient called in asking for routine lab orders to be placed. Patient stated she will schedule her appointment soon. Done. Asad Ansari MD documented in this encounterPromedica Bay Park Hospital03-04-2022 NoteHNO ID: [id number] Author: Asad Ansari MD Service: ? Author Type: Physician Type: Progress Notes Filed: 07/22/2021 10:43 AM Note Text: VIRTUAL VISIT PROGRESS NOTE This is a virtual visit using [employer] video platform. It required patient-provider interaction for [...] mcg (5,000 unit) cap - Vitamin D [place] (Ancestry) Take 1 capsule by mouth daily with food. - montelukast (SINGULAIR) 10 mg tablet Take 10 mg by mouth daily at bedtime. - MULTIVIT-MINERALS/FERROUS GLUC (CENTRAM-CARE ORAL) Take by mouth twice daily. - esomeprazole mag trihydrate(NEXIUM 40 MG CAP) Take one(1) capsule daily. - mometasone furoate(NASONEX 50 MCG/ACTUATION SPRAY) Combs twice in each nostril once daily. - [...] Date(s) Administered COVID-19 vaccine, age 12+ yr ([employer] - [employer]) 09/23/2020 Labs: HbA1c. TSH. [...] 2 months - virt (more content not included)...[facility]02-14-2022 Evaluation note* Encounter Date Diagnosis Assessment Notes Treatment Notes Treatment Clinical Notes Jun, Lumbar pain (ICD-10 - M54.50) Jun,Leg pain (ICD-10 - M79.606)bilateral 14 Jun, 2021Hyperlipidemia (ICD-10 - E78.5) [employer] Other 02-02-2022 Miscellaneous Notes* Telephone Encounter - Neema Gunderson Adm - 06/22/2021 9:09 AM EST Patient called in requesting the results of her labs that she had completed on 06/16/2021 Canelo can be reached at [phone] (C) or can be reached through [employer]. documented in this encounterPromedica Bay Park Hospital01-27-2022 NoteHNO ID: [id number] Author: Asad Ansari MD Service: ? Author Type: Physician Type: Progress Notes Filed: 06/16/2021 1:56 PM Note Text: Last Visit: This is the first visit. Ms. Pathak is here for follow up regarding her DM Type 2 and hypothyroidism. Current Immunizations: Most Recent Immunizations Administered Date(s) Administered COVID-19 vaccine, age 12+ yr ([employer] - PURPLE TOP) 09/23/2020 PHYSICAL EXAMINATION: [...] mouth daily before breakfast. - Vitamin D [place] ([employer]) Take 1 capsule by mouth daily with food. - montelukast (SINGULAIR) 10 mg tablet Take 10 mg by mouth daily at bedtime. - MULTIVIT-MINERALS/FERROUS GLUC (CENTRAM-CARE ORAL) Take by mouth twice daily. - esomeprazole mag trihydrate(NEXIUM 40 MG CAP) Take one(1) capsule daily. - mometasone furoate(NASONEX 50 MCG/ACTUATION SPRAY) Combs twice in each nostril once daily. - [...] Hair?: Yes Cold Intolerance: Yes Heat Intolerance?: YesC[facility]12[facility]* Encounter Date Diagnosis Assessment Notes Treatment Notes Treatment Clinical Notes Apr, Diabetes (ICD-10 - E11.9) [employer] Other 10-27-2021 Evaluation note* Encounter Date Diagnosis Assessment Notes Treatment Notes Treatment Clinical Notes Feb, Hypothyroidism, unspecified (ICD -10 - E03.9) Feb,olyarthralgia (ICD-10 - M25.50) [employer] Other 10-26-2021 Evaluation note* Encounter Date Diagnosis [...] weeks to check her thyroid levels. Feb,Other retirement (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 (ICD-10 - Z79.899) Feb,elvic [...] says by 5-6 weeks it was gone. [employer] Other 10-07-2021 Evaluation note* Encounter Date Diagnosis Assessment Notes Treatment Notes Treatment Clinical Notes Feb, Bronchitis (ICD-10 - J40) [employer] Other 10-04-2021 Evaluation note* Encounter Date Diagnosis Assessment Notes Treatment Notes Treatment Clinical Notes Feb, Asthma (ICD-10 - J45.909) Feb,GERD (gastroesophageal reflux disease) (ICD-10 - K21.9) Feb,easonal allergies (ICD-10 - J30.2) [employer] Other 07-28-2012 History general Narrative - Reported* Type Description Date Medical History asthma Medical Nlheuyg06/28/12 Right hand x-rayMedical Vcvneii02/28/12 Blood work Lipid, CMP, CBC, T4, TSH, HGA1C (6.3)Medical Xumkrtz65/22/12-stress test at [facility] Medical HistoryHypothyroidismMedical Zjcboeo8956 mammogramMedical History12/21/15 EKGMedical History12/29/15 Stress Test [facility]urgical Historytonsillectomy and pywgrfwdodzah5189Anairxlo Historycholecystectomy08/2008Surgical Historygall bladder08/2008Surgical Historytubes in zubg8806/78Surgical Historylaproscopic fibroid vpyhlle1905/16/2010Surgical Bdzarvsrbkyyjilwqlp--1105Bwavhiea Historymammogram [facility] - Dr Alvarez07/17/17urgical HistoryERCP 09/17/17Hospitalization Historygall bladder08/2008Hospitalization History tonsillectomyHospitalization Historytubes in earsHospitalization History heart(over night opservation)08/2007Hospitalization Niiwvfzbfqwwjchf5487 Hospitalization Historyabnormal liver function [id number] [employer] Other 07-28-2012 History general Narrative - Reported* Type Description Date Medical History asthma Medical Wwfmfrd63/28/12 Right hand x-rayMedical Sevgqlr57/22/12-stress [facility] at [facility]Medical HistoryHypothyroidismMedical Rayedfv0351 mammogramMedical History 12/21/15 EKGMedical History12/29/15 Stress Test [facility]urgical Historytonsillectomy and nqwdvczphjrkq1311Ykrqwgnp Historycholecystectomy08/2008Surgical Historygall bladder08/2008Surgical Historytubes in yjdy9462/78Surgical Historylaproscopic fibroid zccebjm2005/16/2010Surgical Wxyudyebjbjvmsvreyt-bhbsa96-2999Pupvveic Historymammogram [facility] - Dr Alvarez07/17/17urgical HistoryERCP 09/17/17Hospitalization Historygall bladder08/2008Hospitalization History tonsillectomyHospitalization Historytubes in earsHospitalization History heart(over night opservation)08/2007Hospitalization Fysudvtmqmjrzbnu6414 Hospitalization Historyabnormal liver function [id number] [employer] Other 07-28-2012 History general Narrative - Reported* Type Description Date Medical History asthma Medical Zuvpoyp49/28/12 Right hand x-rayMedical Opkvfsa28/22/12-stress test at [facility] HistoryHypothyroidismMedical Ymabkcu9062 mammogramMedical History 12/21/15 EKGMedical History12/29/15 Stress Test [facility] Historyspinal stenosis Surgical Historytonsillectomy and kkrlfagmyttfl8979Ucxmkakp History cholecystectomy08/2008Surgical Historygall bladder08/2008Surgical Historytubes in ocfl3610/78Surgical Historylaproscopic fibroid kjiluwd6105/16/2010Surgical History lxvglsudcjll-xdifd85-4547Ygbzcjes Historymammogram [facility] - Dr Alvarez07/17/urgical HistoryERCP4/Hospitalization Historygall bladder 08/2008Hospitalization HistorytonsillectomyHospitalization Historytubes in ears Hospitalization Historyheart(over night opservation)08/2007Hospitalization Mxfuuezhywvwhcag2232Vlftrdgtdmltcbk Historyabnormal liver function [id number] [employer] Other Evaluation note* Diagnosis Acquired hypothyroidism- Primary Unspecified hypothyroidism Controlled type 2 diabetes mellitus without complication, without long-term current use of insulin (HCC) documented in this encounter [facility]* Diagnosis Fibromyalgia- Primary Mylagia and myositis, unspecified [place] (generalized anxiety disorder) Generalized anxiety disorder documented in this encounter [facility]Evaluch[facility]* Diagnosis Type 2 diabetes mellitus with hyperglycemia, without long-term current use of insulin (HCC)- Primary Heraclio's disease Chronic lymphocytic thyroiditis documented in this encounter [facility] HospitalEvaluchristiana hospital noteNo InformationEvergreenhealth Monroe [employer] Other Evaluation noteEvergreenhealth Monroe [employer] Other Evaluation note* Diagnosis Onset Date Resolution Status Anxiety acuteAsthmaacuteDiabetesacuteElevated blood pressure readingacuteFatigueacute GERD (gastroesophageal reflux disease)acuteHyperlipidemiaacuteHypothyroidism acuteOther chronic painacuteOther retirement (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acute PalpitationacuteVitamin D deficiencyacute [facility] Work Phone: Evaluation note* Diagnosis Onset Date Resolution Status Chronic pain acuteHip painacuteLumbar stenosisacuteSacroiliitisacuteChronic painacuteHip pain acuteLumbar radiculopathyacuteLumbar stenosisacuteSacroiliitisacuteChronic pain acuteLumbar radiculopathyacuteLumbosacral spondylosisacuteSacroiliitisacute [facility] Work Phone: Evaluation note* Diagnosis Onset Date Resolution Status Chronic pain acuteHip painacuteLumbar stenosisacuteSacroiliitisacuteChronic painacuteHip pain acuteLumbar radiculopathyacuteLumbar stenosisacuteSacroiliitisacuteChronic pain acuteLumbar radiculopathyacuteLumbosacral spondylosisacuteSacroiliitisacute Chronic painacuteLumbar radiculopathyacuteLumbosacral spondylosisacute Sacroiliitisacute [facility] Work Phone: Evaluation note* Diagnosis Onset Date Resolution Status Chronic pain acuteLumbar radiculopathyacuteLumbosacral spondylosisacuteSacroiliitisacute Chronic painacuteLumbar radiculopathyacuteLumbosacral spondylosisacute SacroiliitisacuteAsthmaacuteGERD (gastroesophageal reflux disease)acuteSeasonal allergiesacute [facility] Work Phone: History general Narrative - ReportedNort [employer]aze [employer] Other History general Narrative - Reported* Type Description Date Medical History asthma Medical HistoryHypothyroidismMedical Historyspinal stenosisMedical History diabetes mallitusMedical Historychronic depressionMedical HistoryanxietyMedical HistoryhyperlipidemiaMedical HistoryobesityMedical HistoryfibromyalgiaMedical Historyshoulder painSurgical Historytonsillectomy and ytnyonwwhumki0369Slqcnlte Historycholecystectomy08/2008Surgical Historygall bladder08/2008Surgical History tubes in vvnv0792/78Surgical Historylaproscopic fibroid klydnfc9905/16/2010 Surgical Sevyqzahbggzbhzbgbx--1058Qkpmpdgw Historymammogram [facility] - Dr Alvarez07/17/urgical HistoryERCP4/Hospitalization Historygall bladder08/2008Hospitalization HistorytonsillectomyHospitalization Historytubes in earsHospitalization Historyheart(over night opservation)08/2007 Hospitalization Jevrgzqhckqksbzq9636Jhsemvsckuohfov Historyabnormal liver function txyf0063 [employer] Other History general Narrative - Reported* Type Description Date Medical History asthma Medical HistoryHypothyroidismMedical Historyspinal stenosisMedical History diabetes mallitusMedical Historychronic depressionMedical HistoryanxietyMedical HistoryhyperlipidemiaMedical HistoryobesityMedical HistoryfibromyalgiaMedical Historyshoulder painMedical Historyseasonal allergiesMedical HistoryEsophageal refluxSurgical Historytonsillectomy and vnflvtsscvend6619Cnzujujj History cholecystectomy08/2008Surgical Historygall bladder08/2008Surgical Historytubes in sdsa1499/78Surgical Historylaproscopic fibroid cprwaem1205/16/2010Surgical History nawchnehuioi-rcfba88-5613Futybfqj Historymammogram [facility] - Dr Alvarez07/17/17urgical HistoryERCP4/Hospitalization Historygall bladder 08/2008Hospitalization HistorytonsillectomyHospitalization Historytubes in ears Hospitalization Historyheart(over night opservation)08/2007Hospitalization Eiculbxpmhyhmptw7861Fgjormvacrheshd Historyabnormal liver function tavh2986 [facility] [employer] Other Hospital course Narrative No data available for this section [facility] instructions No data available for this section [facility] Discharge instructionsAmbulatory Orders* Referral to Orthopedics Time Frame: 06/26/24, Location: None [facility] Work Phone: Progress note No data available for this section [facility] HospitalReason for referral (narrative)No reason for referral information availableHarrison Community Hospital Work Phone: Reason for visit Narrativereview labs, discuss multiple issues, see treatment plan for further informationNoHospital of the [facility] [employer] Other Reason for visit Narrativereview labs, discuss multiple issues, see treatment planNoHospital of the [facility] [employer] Other Summary Purpose Family History Relationship Condition [...] Referral SpecialtyDiagnoses / ProceduresReferred By ContactReferred To [facility] Diagnoses Fibromyalgia Procedures CONSULT TO [facility] (CHRONIC PAIN) OFFICE/OUTPATIENT [facility] 60-74 MINUTES Leena Seymour MD [address] [place] [address] Referral IDStatusReasonStart DateExpiration DateVisits RequestedVisits [id number] Review PCP Requested Referral / Reason appt pt needs cons ult to discuss weight loss, diabetes Diagnosis 1 Diabetes (E11.9) Referral Organization [facility] Referring Provider First Name Jeff Referring Provider Last Name Dontrell Referring Provider Specialty Family Prac debbi Referred Organization [facility] Referred Provider Carl Valdivia Jr. Referred Address [address],[place], [place],[address] Referred Provider Specialty Internal Med icine Referral Priority Routine General Notes TalbertViktoria zunigaorah 03/15/2021 01:33:19 PM > [facility] form faxed. pt understands she will be contacted to schedule the appt Reason appt pt needs scre ening colonoscopy Diagnosis 1 Colon cancer screeni ng (Z12.11) Referral Organization [facility] [place] Referring Provider First Name Jeff Referring Provider Last Name Dontrell Referring Provider Specialty Family Prac debbi Referred Organization [facility] Gastroenterolo gy Referred Provider Howard Kunz Referred Address [address] ,[place], [place],[address] Referred Provider Specialty Gastroentero logy Referral Priority Routine General Notes Svetlana Talbert 04/11/2022 01:25:30 PM > referral sent p2p. pt understands she will be contacted to schedule this appt. 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 Palpitation Vitamin D deficiency Chief Complaint review labs BP/discuss meds/ENTReason for VisitAnxiety Asthma Diabetes Elevated blood pressure reading Fatigue GERD (gastroesophageal reflux disease) Hyperlipidemia Hypothyroidism Other chronic pain 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 Palpitation Vitamin D deficiency Asymmetrical sensorineural hearing loss Chronic pain Elevated blood pressure reading Tinnitus Chief Complaint review labs BP/discuss meds/ENT review thyroid labsReason for VisitAnxiety Asthma Diabetes Elevated blood pressure reading Fatigue GERD (gastroesophageal reflux disease) Hyperlipidemia Hypothyroidism Other chronic pain Other retirement (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 Palpitation Vitamin D deficiency [...] 2024 10:24am GERD (gastroesophageal reflux disease) F [facility] 2024 10:24am Nausea July 16, 2024 [...] 2024 10:24am GERD (gastroesophageal reflux disease) F [facility] 2024 10:24am Nausea July 16, 2024 [...] section and content) DATE CREATED AUTHOR 10/10/2018 [facility] DATE CREATED AUTHOR AUTHOR'S ORGANIZ ATION 05/13/2022 [facility] DATE CREATED AUTHOR AUTHOR'S ORGANIZ ATION 09/15/2022 [facility] DATE CREATED AUTHOR AUTHOR'S ORGANIZ ATION 12/19/2022 [facility] DATE CREATED AUTHOR AUTHOR'S ORGANIZ ATION 10/14/2023 [facility] DATE CREATED AUTHOR AUTHOR'S ORGANIZ ATION 10/24/2023 [facility] DATE CREATED AUTHOR AUTHOR'S ORGANIZ ATION 01/31/2024 [facility] DATE CREATED AUTHOR AUTHOR'S ORGANIZ ATION 11/30/2024 [facility] DATE CREATED AUTHOR AUTHOR'S ORGANIZ ATION 02/11/2025 [facility] Comments (unrecognize d section and content) In the event this informatio n is protected by the Federal Confidentiality of Alcohol and Drug Abuse Patient Records regulations: The Federal rules restrict any use of the information to criminally investigate or prosecute any alcohol or drug abuse patient.[facility] HospitalIn the event this information is protected by the Federal Confidentiality of Alcohol and Drug Abuse Patient Records regulations: The Federal rules restrict any use of the information to criminally investigate or prosecute any alcohol or drug abuse patient.[facility] HospitalIn the event this information is protected by the Federal Confidentiality of Alcohol and Drug Abuse Patient Records regulations: The Federal rules restrict any use of the information to criminally investigate or prosecute any alcohol or drug abuse patient.[facility] HospitalIn the event this information is protected by the Federal Confidentiality of Alcohol and Drug Abuse Patient Records regulations: The Federal rules restrict any use of the information to criminally investigate or prosecute any alcohol or drug abuse patient.[facility] HospitalIn the event this information is protected by the Federal Confidentiality of Alcohol and Drug Abuse Patient Records regulations: The Federal rules restrict any use of the information to criminally investigate or prosecute any alcohol or drug abuse patient.[facility] Reason for Visit (unrecogniz ed section [...] 08, 2024 End: September 08, 2024Hefredo Rico PERSONNEL ADVISER ACNP-BCAttending ProviderActiveStart: September 08, 2024 End: September [...] Jeff Jon, DO [address] [place] [address] PCP - [facility]08/01/18Team MemberRelationshipSpecialtyStart DateEnd Date Jeff Jon, DO [address] [place] [address] PCP - [facility]08/01/18Team MemberRelationshipSpecialtyStart DateEnd Date Jeff Jon, DO [address] [place] [address] PCP - [facility]08/01/18Team MemberRelationshipSpecialtyStart DateEnd Date Jeff Jon, DO [address] [place] [address] PCP - [facility]08/01/18Team MemberRelationshipSpecialtyStart DateEnd Date Jeff Jon, DO [address] [place] [address] PCP - [facility]08/01/18 Team Status: Active Member Role Status [...] 2025Team MemberRelationshipSpecialtyStart DateEnd Date Jeff Jon MD [address] [place] [id number] PCP - GeneralFamily Medicine10/18/22 Goals (unrecognized section [...] BE BASED ON THE PRIMARY CLINICAL RECORDS. [facility] HospitalLEDnovation, Inc. [facility]. provides no warranty or guarantee of the accuracy or completeness of information in this document.
--- NOTE | 2025-04-24 13:26 | CT_ITS ---
[address] [address] Patient Name: CANELO SINGH MRN: [id number] date: 1965 Sex: F Assigned Patient Location: ER Current Patient Location: ER Accession/Order Number: [id number] Exam Date: 04/24/2025 14:08 Report Date: 04/24/2025 14:33 At the request of: MEGHANN NUNEZ Procedure: CT abdomen pelvis w con CT abdomen pelvis w con 04/24/2025 2:17 PM SIGNS AND SYMPTOMS: Epigastric pain, diarrhea, nausea TECHNIQUE: Multidetector ct axial images of the abdomen and pelvis were obtained with IV contrast. Multiplanar reformats were performed and reviewed to further define anatomy and possible pathology. CT was performed with one or more of the following dose reduction techniques: Automated exposure control, adjustment of the mA and/or kV according to patient size, or use of iterative reconstruction technique. COMPARISON: None. FINDINGS: Lower Chest: Within normal limits. ABDOMEN: Liver: Within normal limits. Bile Ducts: Normal caliber. Gallbladder: Previously removed Pancreas: Within normal limits. Spleen: Within normal limits. Adrenals: Within normal limits. Kidneys: Within normal limits. Pelvis: Reproductive Organs: No pelvic masses. Ureters: Within normal limits. Bladder: Within normal limits. Bowel: Normal caliber. There is a normal appendix in the right lower quadrant. Mesenteric Lymph Nodes: No enlarged mesenteric lymph nodes. Peritoneum: No ascites or free air, no fluid collection. Vessels: Atherosclerotic changes are noted in the abdominal aorta. Retroperitoneum: Within normal limits. Abdominal Wall: Within normal limits. Bones: Degenerative changes are noted in the thoracolumbar spine CT/CT abdomen pelvis w con IMPRESSION: No bowel obstruction or obstructive uropathy. No acute intra-abdominal pathology. There is evidence of prior cholecystectomy. Impression dictated by: Zenon Betancur M.D. 04/24/2025 2:33 PM Dictation Location: [place] [address] Electronically authenticated by: [id number] Y Date: 04/24/2025 14:33
--- NOTE | 2025-04-24 13:30 | ED_ITS ---
HPI HPI - General Adult General Chief complaint: Abdominal Pain Stated complaint: ABDOMINAL PAIN Time Seen by Provider: 04/24/25 13:07 Source: patient Mode of arrival: walk-in History of Present Illness HPI narrative: Patient is a 59-year-old female with a PMH of diabetes type 2, CHF, GERD, asthma that presents emergency department with complaints of 5 days of diarrhea, epigastric abdominal pain, and chills. She states she has been belching a lot, very nauseous, but no vomiting. She has a past surgical history of cholecystectomy and complete hysterectomy. She has been on multiple rounds of antibiotics as she has been sick starting about 7 weeks ago that started with a sinus infection and bronchitis. A month ago she was admitted for a asthma exacerbation. She has been on doxycycline, Augmentin, and azithromycin. Related Data Home Medications ?Medication ?Instructions ?Recorded ?Confirmed cetirizine 10 mg tablet 10 mg PO .QHS 06/30/2303/24 levothyroxine 175 mcg tablet 175 mcg PO DAILY 06/30/23 03/24/25 cyclobenzaprine 10 mg tablet 10 mg PO BEDTIME 08/05/24 03/24/25 esomeprazole magnesium 40 mg 40 mg PO .qhs 08/05/24 capsule,delayed release atorvastatin 40 mg tablet 40 mg PO .qhs 03/24/2503/25 cholecalciferol (vitamin D3) 50 50 mcg PO DAILY 03/24/25 mcg (2,000 unit) tablet (Vitamin D3) dapagliflozin propanediol 10 mg 10 mg PO DAILY 5 03/24/25 tablet (Farxiga) diltiazem HCl 240 mg 240 mg PO Q24H 03/24/2509/12 capsule,extended release 24 hr (Cartia XT) fluticasone 250 mcg-salmeterol 50 1 inh inhalation BID 03/24/25 03/24/25 mcg/dose blistr powdr for inhalation (eSanxela Inhub) montelukast 10 mg tablet 10 mg PO .qhs 03/24/2503/25 spironolactone 25 mg tablet 12.5 mg PO DAILY 03/24/25 03/25/25 albuterol sulfate 2.5 mg/3 mL 2.5 mg inhalation Q6H UT N 03/25/25 03/25/25 (0.083 %) solution for nebulization shortness of breat h or wheezing aspirin 81 mg chewable tablet 1 tab PO DAILY 03/25/25 03/25/25 tramadol 50 mg tablet 50 mg PO BID PRN pain 03/25/25 Previous Rx's ?Medication ?Instructions ?Recorded albuterol sulfate 90 mcg/actuation 2 inh inhalation Q4 H PRN shortness 08/06/24 aerosol inhaler of breath or wheezing #6.7 g wilfrid doxycycline monohydrate 100 mg 100 mg PO BID #12 caps 03/26/25 capsule furosemide 40 mg tablet 20 mg (1/2 x 40 mg) PO DAILY #0 03/26/25 tabs prednisone 10 mg tablet 10 mg PO .As directed #15 ta bs 03/26/25 Allergies Allergy/AdvReac Type Severity Reaction Status Date / Time gatifloxacin (From Tequin) Allergy Mild Rash Verified 08/05/24 10:56 Opioid HPI Opioid Management Most Recent Opioid Data: Last Pain Scale 4 08/06/24, 09:28 Last ORT Total Score 1 03/24/25, 21:25 Last ORT Risk Category Low Risk 03/24/25, 21:25 Review of Systems ROS Status of ROS 10 or more systems reviewed and unremark able except as noted in history and below [facility] Medical History (Updated 04/24/25 @ 16:55 by ENRIQUE Montgomery) History of left heart catheterization ?Z98.890 - Other specified postprocedural states (ICD-10) Chronic bronchitis ?J42 - Unspecified chronic bronchitis (ICD-10) Chronic pain ?G89.29 - Other chronic pain (ICD-10) CHF (congestive heart failure) ?I50.9 - Heart failure, unspecified (ICD-10) Spinal stenosis ?M48.00 - Spinal stenosis, site unspecified (ICD-10) GERD without esophagitis ?K21.9 - Gastro-esophageal reflux disease without esophagitis (ICD-10) Non-insulin dependent diabetes mellitus Asthma, mild intermittent ?J45.20 - Mild intermittent asthma, uncomplicated (ICD-10) Essential (primary) hypertension ?I10 - Essential (primary) hypertension (ICD-10) Surgical History (Updated 03/24/25 @ 22:02 by Estelita Villa) Hx of tonsillectomy ?Z90.89 - Acquired absence of other organs (ICD-10) History of repair of rotator cuff ?Z98.890 - Other specified postprocedural states (ICD-10) History of appendectomy ?Z90.49 - Acquired absence of other specified parts of digestive tract (ICD- 10) History of cholecystectomy ?Z90.49 - Acquired absence of other specified parts of digestive tract (ICD- 10) History of hysterectomy ?Z90.710 - Acquired absence of both cervix and uterus (ICD-10) Family History (Updated 03/24/25 @ 21:39 by Lana Sunshine, HAILEY) Father Family history of stroke Family history of myocardial infarction Family history of hypertension Family history of CHF (congestive heart failure) Grandmother Family history of hypertension Family history of diabetes mellitus Family history of CHF (congestive heart failure) Grandfather Family history of myocardial infarction Family history of hypertension Family history of CHF (congestive heart failure) Brother Family history of myocardial infarction Family history of hypertension Family history of CHF (congestive heart failure) Aunt Family history of hypertension Family history of cancer Family history of COPD (chronic obstructive pulmonary disease) Mother Pulmonary embolism Social History (Updated 03/24/25 @ 21:33 by Lana Sunshine RN) Within the past year, how often did you have a drink containing alcohol: monthly or less Within the past year, how many standard drinks containing alcohol did you have on a typical day: 1 or 2 Within the past year, how often did you have six or more drinks on one occasion: never Total score: 0 Score interpretation: A score less than 3 is consistent with normal alcohol consumption. Smoking status: Never smoker Non-prescribed substance use: denies use Highest level of school completed/degree received: high school graduate Are you now , , , , never or living with a partner: In a typical week, how many times do you talk on the telephone with family, friends, or neighbors: 3 or more times per week How often do you get together with friends or relatives: 3 or more times per week Little interest or pleasure in doing things: not at all Feeling down, depressed, or hopeless: not at all Do you think of yourself as: straight/heterosexual Gender Identity: female Exam Narrative Exam Narrative: General: No distress, age-appropriate Skin: Warm, dry, no pallor. No rash. Head: Normocephalic, atraumatic. Neck: Supple, non-tender. Eye: Pupils are equal, round and EOMI. No scleral icterus. Ears, Nose, Mouth, and Throat: No nasal mucosal hypertrophy. Oral mucosa is moist, no posterior oropharynx erythema, uvula is mid-line Cardiovascular: Regular Rate and Rhythm without murmur, gallop or rub. Respiratory: No accessory muscle use or respiratory distress. Lungs are clear to auscultation, no wheezing, rales or rhonchi Chest Wall: no tenderness Musculoskeletal: Full ROM of all extremities, no calf or popliteal tenderness GI: Abdomen is soft, non-distended, tender to palpation in the epigastric region. No masses appreciated. No rebound, guarding, or rigidity noted. Neurological: A&O x4. No cranial nerve dysfunction observed. No truncal ataxia. Moves all extremities. Sensation intact. Psychiatric: Cooperative and interactive. Normal mood and affect. Constitutional Vital Signs, click to edit/add: Last Vital Signs Temp 98.8 F 04/24/25 12:59 Pulse 84 04/24/25 16:15 Resp 18 04/24/25 16:15 BP 139/80 04/24/25 16:15 Pulse Ox 97 04/24/25 12:59 O2 Del Method Room Air 04/24/25 12:59 Documenting provider has reviewed patient's vital signs: yes Course Vital Signs Vital signs: Vital Signs Temperature 98.8 F 04/24/25 12:59 Pulse Rate 92 H 04/24/25 12:59 Respiratory Rate 18 04/24/25 12:59 Blood Pressure 154/109 H 04/24/25 12:59 Pulse Oximetry 97 04/24/25 12:59 Oxygen Delivery Method Room Air 04/24/25 12:59 Temperature 98.8 F 04/24/25 12:59 Pulse Rate 84 04/24/25 16:15 Respiratory Rate 18 04/24/25 16:15 Blood Pressure 139/80 04/24/25 16:15 Pulse Oximetry 97 04/24/25 12:59 Oxygen Delivery Method Room Air 04/24/25 12:59 Medical Decision Making MDM Narrative Medical decision making narrative: 59-year-old female with a history of type 2 diabetes, CHF, GERD, asthma, and multiple recent antibiotic courses presented with 5 days of diarrhea, epigastric abdominal pain, nausea, and belching. Differential included C. difficile colitis, infectious gastroenteritis, gastritis, pancreatitis, biliary pathology, metabolic derangement, and less likely bowel obstruction. Labs were reassuring with normal WBC and no left shift, stable BMP, mild elevation in alk phos, normal lipase, negative troponin, and BNP not suggestive of CHF exacerbation. UA notable for glucosuria and mild ketonuria consistent with decreased PO intake and underlying diabetes. EKG showed sinus rhythm without acute ischemic changes. CT abdomen/pelvis with contrast and chest X-ray revealed no acute intra-ab dominal or cardiopulmonary pathology. Patient tolerated oral fluids in the ED but was unable to provide a stool sample; however, given her recent extensive antibiotic exposure, C. difficile remains a concern and we discussed outpatient follow up with her PCP. She received IV fluids and IV antiemetic therapy with improvement in nausea but declined PO challenge aside from water. Given stable vitals, unremarkable imaging, and absence of emergent pathology, discharge with close outpatient follow-up, strict return precautions and hydration guidance was discussed and patient agreeable. She declined antiemetics medication for discharge as she states she does not react well to new medications. Patient was discharged in stable condition with plan for close follow-up with her PCP. Differential Diagnosis Differential Diagnosis: C. difficile, gastroenteritis, pancreatitis, ACS Lab Data Lab results reviewed: Yes I reviewed the patient's lab results Labs: Lab Results 04/24/25 04/24/25 Range/Units 13:35 13:51 WBC 6.6 (4.0-11.0) 10^3/uL RBC 5.34 (4.20-5.40) 10^6/uL Hgb 16.3 H (12.0-16.0) g/dL Hct 47.4 (36.0-48.0) % MCV 88.8 (81.0-99.0) fL MCH 30.5 (26.7-34.0) pg MCHC 34.4 (29.9-35.2) g/dL RDW 12.1 (11.0-15.0) % Plt Count 350 (150-450) 10^3/uL MPV 10.0 (9.5-13.5) fL Neut % (Auto) 55.4 (43.0-75.0) % Lymph % (Auto) 29.6 (20.5-60.0) % [place] % (Auto) 8.9 (1.7-12.0) % Eos % (Auto) 4.8 (0.9-7.0) % Baso % (Auto) 0.8 (0.2-2.0) % Neut # (Auto) 3.7 (1.4-6.5) 10^3/uL Lymph # (Auto) 2.0 (1.2-3.8) 10^3/uL Riley # (Auto) 0.6 (0.3-0.8) 10^3/uL Eos # (Auto) 0.3 (0.0-0.7) 10^3/uL Baso # (Auto) 0.1 (0.0-0.1) 10^3/uL Abs Immat Gran (auto) 0.03 (0.00-0.03) 10^3/uL Imm/Tot Granulo (auto) 0.5 (0.0-0.5) % Sodium 139 (136-145) mmol/L Potassium 3.8 (3.5-5.1) mmol/L Chloride 100 (98-107) mmol/L Carbon Dioxide 27.4 (21.0-32.0) mmol/L Anion Gap 15.4 BUN 19.0 H (7.0-18.0) mg/dL Creatinine 0.95 (0.55-1.02) mg/dL Est GFR ( Amer) >60 (>=60 mL/min/1.73m^2) Est GFR (Non-Af Amer) >60 (>=60 mL/min/1.73m^2) BUN/Creatinine Ratio 20.0 Glucose 161 H (74-106) mg/dL Calcium 10.0 (8.5-10.1) mg/dL Total Bilirubin 0.5 (0.2-1.0) mg/dL AST 33 (15-37) U/L ALT 58 (14-59) U/L Alkaline Phosphatase 134 H (46-116) U/L Troponin I High Sens 5.7 (4.0-51.3) pg/mL NT-Pro-B Natriuret Pep 13.0 (<=900.0) pg/mL Total Protein 7.4 (6.4-8.2) g/dL Albumin 3.9 (3.4-5.0) g/dL Globulin 3.5 g/dL Albumin/Globulin Ratio 1.1 Lipase 39.0 (16.0-77.0) U/L Urine Color Lt. yellow (YELLOW) Urine Clarity Clear (CLEAR) Urine pH 5.5 (5.0-9.0) Ur Specific [place] 1.015 (1.005-1.025) Urine Protein Negative (NEG/TRACE) mg/dL Urine Glucose (UA) >=1000 A (NEGATIVE) mg/dL Urine Ketones 15 A (NEGATIVE) mg/dL Urine Occult Blood Negative (NEGATIVE) Urine Nitrite Negative (NEGATIVE) Urine Bilirubin Small A (NEGATIVE) Urine Urobilinogen 0.2 (0.2-1.0) EU/dL Ur Leukocyte Esterase Negative (NEGATIVE) Urine RBC 0-2 (0-2) #/HPF Urine WBC None seen (NONE SEEN) #/HPF Ur Squamous Epith Cells Few A (NONE/RARE) #/LPF Urine Crystals None seen (None Seen) #/HPF Urine Bacteria Trace A (NONE SEEN) #/HPF Urine Casts None seen (NONE SEEN) #/LPF Urine Mucus None seen (NONE SEEN) Ur Culture Indicated? No Imaging Data CT scan - abdomen: Attestation: I have reviewed the pertinent imaging results. Radiologist's impression: ITS Impressions Abdomen/Pelvis CT 04/24/25 13:26 IMPRESSION: No bowel obstruction or obstructive uropathy. No acute intra-abdominal pathology. There is evidence of prior cholecystectomy. Impression dictated by: Zenon Betancur M.D. 04/24/2025 2:33 PM Dictation Location: [facility] Electronically authenticated by: [id number] Y Date: 04/24/2025 14:33 Chest X-Ray 04/24/25 13:31 IMPRESSION: No acute cardiopulmonary pathology. Impression dictated by: Zenon Betancur M.D. 04/24/2025 2:26 PM Dictation Location: [facility] Electronically authenticated by: [id number] Y Date: 04/24/2025 14:26 ECG Data Attestation: ?I have reviewed the pertinent ECG results. Discharge Plan Discharge Chief Complaint: Abdominal Pain Clinical Impression: Gastroenteritis Patient Disposition: Home, Self-Care Time of Disposition Decision: 16:55 Condition: Good Mode of Transportation: Private Vehicle Prescriptions / Home Meds: No Action cetirizine 10 mg tablet 10 mg PO .QHS levothyroxine 175 mcg tablet 175 mcg PO DAILY atorvastatin 40 mg tablet 40 mg PO .qhs diltiazem HCl [Cartia XT] 240 mg capsule,extended release 24hr 240 mg PO Q24H montelukast 10 mg tablet 10 mg PO .qhs spironolactone 25 mg tablet 12.5 mg PO DAILY dapagliflozin propanediol [Farxiga] 10 mg tablet 10 mg PO DAILY cholecalciferol (vitamin D3) [Vitamin D3] 50 mcg (2,000 unit) tablet 50 mcg PO DAILY fluticasone propion-salmeterol [Wixela Inhub] 250-50 mcg/dose blister with device 1 inh inhalation BID tramadol 50 mg tablet 50 mg PO BID PRN (Reason: pain) albuterol sulfate 2.5 mg /3 mL (0.083 %) solution for nebulization 2.5 mg inhalation Q6H PRN (Reason: shortness of breath or wheezing) aspirin 81 mg tablet,chewable 1 tab PO DAILY doxycycline monohydrate 100 mg Capsule 100 mg PO BID Qty: 12 0RF prednisone 10 mg tablet 10 mg PO .As directed Qty: 15 0RF Rx Instructions: Take 1 tablet twice a day for 3 days Then 1 tablet daily for 5 days Then half tablet daily until finish furosemide 40 mg tablet 20 mg PO DAILY Qty: 0 0RF cyclobenzaprine 10 mg tablet 10 mg PO BEDTIME esomeprazole magnesium 40 mg capsule,delayed release(DR/EC) 40 mg PO .qhs albuterol sulfate 90 mcg/actuation HFA aerosol inhaler 2 inh inhalation Q4H PRN (Reason: shortness of breath or wheezing) Qty: 6.7 0RF Print Language: Slovenian Instructions: Gastroenteritis (ED) Additional Instructions: Hydration & Diet * Drink plenty of clear fluids (water, broth, electrolyte drinks) to prevent dehydration. * Advance diet gradually as tolerated: start with bland foods (toast, rice, bananas, applesauce). * Avoid caffeine, alcohol, and fatty or spicy foods until symptoms improve. Warning Signs ? Return to ER Immediately Seek urgent medical care if you develop any of the following: * Fever >101?F (38.3?C) * Severe or worsening abdominal pain * Blood in stool or black, tarry stools * Persistent vomiting or inability to keep fluids down * Signs of dehydration: dizziness, very little urine, dry mouth * Confusion, weakness, or fainting Follow-Up * Primary Care Provider: within 24?48 hours * Monitor your symptoms daily and keep a log of diarrhea frequency and nausea. Referrals: JEFF JON [Primary Care Provider, [facility]] - 1 week Discharge Date/Time: 04/24/25 17:18
--- NOTE | 2025-04-24 13:31 | XR_ITS ---
The [address] [address] Patient Name: CANELO SINGH MRN: [id number] date: 1965 Sex: F Assigned Patient Location: ER Current Patient Location: ER Accession/Order Number: [id number] Exam Date: 04/24/2025 14:08 Report Date: 04/24/2025 14:26 At the request of: MEGHANN NUNEZ Procedure: XR chest 1V XR chest 1V 04/24/2025 2:17 PM SIGNS AND SYMPTOMS: ^Epigastric pain, PMH CHF, Asthma PROTOCOL: Frontal radiograph of the chest COMPARISON: 03/24/2025 FINDINGS: The trachea is midline. The heart and mediastinal structures are within normal limits. The lung parenchyma is clear. The bony thorax is intact. Degenerative changes are noted in the shoulders and thoracic spine. XR/XR chest 1V IMPRESSION: No acute cardiopulmonary pathology. Impression dictated by: Zenon Betancur M.D. 04/24/2025 2:26 PM Dictation Location: [place] [address] Electronically authenticated by: [id number] Y Date: 04/24/2025 14:26
--- NOTE | 2025-04-24 13:33 | ECG_ITS ---
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 Measurements Intervals [place] Rate: 77 P: 70 RI: 158 QRS: 56 QRSD: 78 T: 44 QT: 370 QTc: 401 Interpretive Statements 1100 Sinus rhythm 4068 Nonspecific [place] abnormality 9130 borderline ECG Compared to ECG 03/24/2025 17:39:16 No significant changes Electronically Signed On 04-24-2025 21:55:56 EST by NEO DEE M.D.
[2025-04-24 13:59] LABS: Glucose Urine UA >=1000 mg/dL (NEGATIVE)
[2025-04-24 14:04] VITALS: PULSE 80
[2025-04-24] MEDS: 0.9 % SODIUM CHLORIDE 1,000 ML 1000 ML IV (14:04)
[2025-04-24 14:18] VITALS: PULSE 86
[2025-04-24 14:20] VITALS: PULSE 85
[2025-04-24 14:22] VITALS: BP 144/74; PULSE 84
[2025-04-24 14:27] LABS: Hematocrit 47.4 % (36.0-48.0); Hemoglobin 16.3 g/dL (12.0-16.0); Immature Granulocytes Abs Auto 0.03 10^3/uL (0.00-0.03); Immature Granulocytes Pct Auto 0.5 % (0.0-0.5); Lymphocytes Absolute Auto 2.0 10^3/uL (1.2-3.8); Mean Corpuscular HGB Conc 34.4 g/dL (29.9-35.2); Mean Corpuscular Hemoglobin 30.5 pg (26.7-34.0); Mean Corpuscular Volume 88.8 fL (81.0-99.0); Platelet Count 350 10^3/uL (150-450); Red Blood Count 5.34 10^6/uL (4.20-5.40); White Blood Count 6.6 10^3/uL (4.0-11.0)
[2025-04-24 14:28] LABS: NT Pro B Type Natriuretic Pept 13.0 pg/mL (<=900.0)
[2025-04-24 14:46] LABS: Cast Seen? NONE SEEN #/LPF (NONE SEEN); Crystals Seen? None Seen #/HPF (None Seen); Urine Culture Indicated NO
[2025-04-24 15:00] LABS: Alanine Aminotransferase 58 U/L (14-59); Albumin Globulin Ratio 1.1; Albumin Level 3.9 g/dL (3.4-5.0); Alkaline Phosphatase 134 U/L (46-116); Anion Gap 15.4; Aspartate Amino Transferase 33 U/L (15-37); Blood Urea Nitrogen 19.0 mg/dL (7.0-18.0); Calcium 10.0 mg/dL (8.5-10.1); Carbon Dioxide 27.4 mmol/L (21.0-32.0); Chloride 100 mmol/L (98-107); Estimated GFR (African America >60 (>=60 mL/min/1.73m^2); Estimated GFR (Non-African Ame >60 (>=60 mL/min/1.73m^2); Globulin 3.5 g/dL; Glucose 161 mg/dL (74-106); Potassium 3.8 mmol/L (3.5-5.1); Sodium 139 mmol/L (136-145); Total Protein 7.4 g/dL (6.4-8.2)
[2025-04-24 15:02] LABS: Lipase 39.0 U/L (16.0-77.0)
[2025-04-24 16:15] VITALS: BP 139/80; PULSE 84
== END 2025-04-24 17:18 | disposition home or self-care (01) ==
PROVIDERS: Physician Assistant; Emergency Provider Emergency Medicine; PCP Family Medicine
DX: K52.9 Noninfective gastroenteritis and colitis, unspecified (principal); R10.13 Epigastric pain; R11.0 Nausea; E11.9 Type 2 diabetes mellitus without complications; I50.9 Heart failure, unspecified; Z87.09 Personal history of other diseases of the respiratory system
CPT/HCPCS: 36415; 71045; 74177; 80053; 81001; 83690; 83880; 84484; 85025; 87045; 87046; 87427; 87493; 93005; 96361; 96374; 99285; G0328; J2405; Q9967